=== PATIENT | female | born 1955 | race Caucasian/White ===

== ENCOUNTER 2017-01-04 11:03 | Inpatient (IN) | payer OTHER ==
[~2017-01-04] VITALS: Ht 157.5 cm; Wt 174.0 kg
[~2017-01-04 11:03] MED LIST: ACET-1256 PO; ASPI81TA28 PO; AZIT250T5 PO; BUPR100T8 PO; CEFU1TAB35 PO; CLR/5 PO; FLV1 PO; INSPMPHMLG; IPRA1AER2 INH; IPRASOL4 INH; ISOS60TA25 PO; LEVO200T6 PO; LPR25 PO; LPT/20 PO; MOME200A INH; MULT-506 PO; NSNN50 NAE; NTRGSL/4 UT; OXGN MS; PRT/40 PO; TORS20TA2 PO; TPM100 PO; VTMD PO
[2017-01-04] MEDS ORDERED: METHYLPREDNISOLONE 125 MG VIAL IV STA (11:33)
[2017-01-04] MEDS ORDERED: TRAM-10 PO (11:42)
[2017-01-04] MEDS ORDERED: SNG10 PO (11:42)
[2017-01-04] MEDS ORDERED: ATV/1 PO (11:42)
[2017-01-04] MEDS ORDERED: MOME6000 (11:42)
[2017-01-04] MEDS ORDERED: MULT-506 PO (11:42)
[2017-01-04] MEDS ORDERED: ALBU18002 INH (11:42)
[2017-01-04] MEDS ORDERED: POTA10TA30 PO (11:42)
[2017-01-04] MEDS ORDERED: CLBCRM30 EXT (11:42)
[2017-01-04] MEDS ORDERED: ALBUT/IPRATROP 3MG/0.5MG NEB 3 ML VIAL INH ONE (11:45)
[2017-01-04 12:02] LABS: HEMATOCRIT 39.6 % (37-47); MEAN CELL VOLUME 87.8 fL (80-100); MEAN CORPUSCULAR HEMOGLOBIN 28.2 pg (25-34); MEAN CORPUSCULAR HGB CONC 32.1 g/dl (32-36); MEAN PLATELET VOLUME 9.3 fL (7.4-10.4); PLATELET COUNT 277 K/uL (130-400); RED BLOOD COUNT 4.51 M/uL (4.2-5.4); WHITE BLOOD COUNT 15.03 K/uL (4.8-10.8)
--- NOTE | 2017-01-04 12:02 | DIAGNOSTIC IMAGING REPORT ---
CHEST ONE VIEW PORTABLE CLINICAL HISTORY: eval for pnea sob cough dyspnea COMPARISON STUDY: 10/21/2016 FINDINGS: Cardiomegaly. Tracheostomy tube in good position. Findings of mild congestive failure IMPRESSION: Mild congestive heart failure Electronically signed by: Neftali Trotter M.D. 01/04/2017 12:00 PM Dictated Date/Time: 01/04/2017 12:00 PM
[2017-01-04 12:10] VITALS: PULSE 79; O2SAT 93
[2017-01-04 12:10] LABS: PARTIAL THROMBOPLASTIN RATIO 0.9; PROTHROMBIN TIME (PATIENT) 10.7 SECONDS (9.0-12.0)
[2017-01-04 12:18] LABS: BLOOD UREA NITROGEN 22 mg/dl (7-18); BUN/CREATININE RATIO 16.8 (10-20); CALCIUM 8.6 mg/dl (8.5-10.1); CARBON DIOXIDE 25 mmol/L (21-32); CHLORIDE 105 mmol/L (98-107); GLUCOSE 221 mg/dl (70-99); POTASSIUM 3.8 mmol/L (3.5-5.1); SODIUM 141 mmol/L (136-145)
[2017-01-04 12:21] LABS: BASO % 0.2 %; BASO ABS # 0.03 K/uL (0-0.2); COMPLETE YES; EOS % 0.5 %; IG% 0.9 %; LYMPH % 18.8 %; LYMPH ABS # 2.83 K/uL (1.2-3.4); MONO % 7.1 %; NEUT % 72.5 %
[2017-01-04] MEDS ORDERED: ONDANSETRON INJ 2 MG/ML 2 ML VIAL IV PRN (14:00)
[2017-01-04] MEDS ORDERED: ACETAMINOPHEN 325 MG TAB PO PRN (14:00)
[2017-01-04] MEDS ORDERED: SODIUM CHLORIDE 0.9% 1000ML 1,000 ML IV SCH (14:00)
[2017-01-04] MEDS ORDERED: GUAISYP5 PO (14:31)
[2017-01-04] MEDS ORDERED: PRED10TA PO (14:31)
--- NOTE | 2017-01-04 14:32 | EMERGENCY ROOM VISIT NOTE ---
History Report prepared by Hipolito: Yonas Dooley Under the Supervision of: Dr. Surya Mcdaniel M.D. First contact with patient: 11:26 Chief Complaint: RESPIRATORY PROBLEMS Stated Complaint: CAN'T BREATHE, WHEEZING History of Present Illness The patient is a 61 year old female who presents to the Emergency Room with complaints of persistent shortness of breath that began on Tuesday of last week, four days prior to arrival. The patient states that she has been wheezing and coughing since Tuesday as well. She cannot bring anything up with her cough, but feels a thick mucous in her chest. She has a history of COPD and asthma. The patient also notes having intermittent chest pains since Tuesday as well. She describes the chest pain as a "heaviness." The patient typically experiences these chest pains when she has wheezing episodes. She did see her PCP on Tuesday and was prescribed cough medicine and Prednisone. She states that the cough medicine has not improve her symptoms. The patient had a tracheostomy in 2007. 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 A total of 10 systems reviewed and were otherwise negative. Past Medical & Surgical Medical Problems: (1) Appendectomy (2) ASTHMA, UNSPECIFIED (3) BENIGN HYPERTENSION (4) BODY MASS INDEX 60.0-69.9, ADULT (5) CARDIAC ARREST (6) Cholecystectomy (7) CHR AIRWAY OBSTRUCT NEC (8) COPD exacerbation (9) DIAB W OTH SPEC MANIFEST, TYPE II OR UNSPEC TYPE, NOT UNCNTR (10) Hysterectomy (11) MORBID OBESITY (12) PURE HYPERCHOLESTEROLEM (13) RESPIRATORY ARREST (14) Tracheostomy (15) URIN TRACT INFECTION NOS Family History Cancer Diabetes mellitus FHx: gallbladder disease Heart disease Hypertension Lung disease Social History Smoking Status: Never Smoker Alcohol Use: none Housing Status: lives with family Occupation Status: disabled Current/Historical Medications Scheduled Aspirin (Aspirin Ec), 81 MG PO DAILY Atorvastatin (Atorvastatin Calcium), 20 MG PO DAILY Bupropion (Wellbutrin Sr), 300 MG PO DAILY Desloratadine (Clarinex), 5 MG PO DAILY Ergocalciferol (Vitamin D), 50,000 INTER.UNIT PO 3XWK Folic Acid (Folic Acid), 1 MG PO DAILY Insulin Human Lispro (Insulin Humalog Pump ), 1 EA N/A UD Ipratropium-Albuterol (Combivent Respimat), 1 PUFF INH QID Isosorbide Mononitrate Ext Rel (Imdur Ext Rel), 60 MG PO DAILY Levothyroxine Sodium (Levothyroxine Sodium), 200 MCG PO 5XWK Levothyroxine Sodium (Levothyroxine Sodium), 300 MCG PO 2XWK Lorazepam (Ativan), 1 MG PO Q8 Metoprolol Tartrate (Lopressor), 12.5 MG PO BID Mometasone Furoate-Formoterol (Dulera 200/5 Mcg), 2 PUFFS INH BID Montelukast Sod (Montelukast Sodium), 10 MG PO DAILY Multivitamin (Multivitamin), 1 TAB PO DAILY Oxygen (Oxygen), 5 LITERS MS UD Pantoprazole (Pantoprazole Sodium), 40 MG PO DAILY Potassium Chloride (Potassium Chloride Cr), 10 MEQ PO BID Topiramate (Topiramate), 100 MG PO BID Torsemide (Demadex), 20 MG PO DAILY Scheduled PRN Acetaminophen (Tylenol), 500 MG PO UD PRN for Pain or Fever Azithromycin (Zithromax), 250 MG PO UD PRN for Rescue Kit Ipratropium-Albuterol (Duoneb), 1 TREATMENT INH QID PRN for Coughing,WHZ or SOB Nitroglycerin (Nitrostat), 0.4 MG UT UD PRN for Chest Pain Tramadol (Ultram), 50 MG PO Q4H PRN for Pain Miscellaneous Medications Albuterol Sulfate (Proair Respiclick) Clobetasol Propionate (Clobetasol Propionate Cream 0.05%), 1 APPLN EXT Mometasone Furoate (Nasal) (Mometasone Furoate) Allergies Coded Allergies: Amitriptyline (Verified Allergy, Unknown, `, 01/04/17) Gabapentin (Verified Allergy, Unknown, `, 01/04/17) Guaifenesin (Verified Allergy, Unknown, PT/FAMILY UNSURE OF RXN, 01/04/17) Metformin (Verified Allergy, Unknown, `, 01/04/17) Penicillins (Verified Allergy, Unknown, `, 01/04/17) Pseudoephedrine (Verified Allergy, Unknown, `, 01/04/17) Tetracycline (Verified Allergy, Unknown, `, 01/04/17) Physical Exam Vital Signs Date Time Temp Pulse Resp B/P Pulse Ox O2 Delivery O2 Flow Rate FiO2 01/04/17 14:24 72 20 126/80 94 Room Air 01/04/17 12:56 73 24 123/78 99 Trach Collar 9.0 01/04/17 12:10 79 20 93 Room Air 01/04/17 11:40 96 Room Air 01/04/17 11:33 92 Room Air 01/04/17 11:30 92 Room Air 01/04/17 11:06 36.7 80 20 139/71 92 Room Air Physical Exam Constitutional: Vital signs reviewed. Eyes: Pupils are equal round reactive to light. Conjunctiva are noninjected. ENT: Tracheostomy is present, no drainage. Pharynx is clear without erythema or exudate. Mucous membranes are moist. Neck supple without meningeal signs. Respiratory: Diffuse expiratory wheezing bilaterally. Breath sounds are equal bilaterally. Cardiovascular: Regular rate and rhythm. No rubs or gallops. GI: Soft, nondistended and nontender. Bowel sounds are present. Musculoskeletal: Bilateral pitting edema, no tenderness. No lower extremity tenderness. Integumentary: No cyanosis. Neurological: The patient is awake and alert. No focal deficits. Psychiatric: Normal affect. Medical Decision & Procedures ER Provider Diagnostic Interpretation: X-ray results as stated below per interpretation by me and the radiologist: CHEST ONE VIEW PORTABLE CLINICAL HISTORY: eval for pnea sob cough dyspnea COMPARISON STUDY: 10/21/2016 FINDINGS: Cardiomegaly. Tracheostomy tube in good position. Findings of mild congestive failure IMPRESSION: Mild congestive heart failure Electronically signed by: Neftali Trotter M.D. 01/04/2017 12:00 PM Dictated Date/Time: 01/04/2017 12:00 PM Laboratory Results 01/04/17 11:50 Red Blood Count 4.51, Mean Corpuscular Volume 87.8, Mean Corpuscular Hemoglobin 28.2, Mean Corpuscular Hemoglobin Concent 32.1, Mean Platelet Volume 9.3, Neutrophils (%) (Auto) 72.5, Lymphocytes (%) (Auto) 18.8, Monocytes (%) (Auto) 7.1, Eosinophils (%) (Auto) 0.5, Basophils (%) (Auto) 0.2, Neutrophils # (Auto) 10.89, Lymphocytes # (Auto) 2.83, Monocytes # (Auto) 1.07, Eosinophils # (Auto) 0.08, Basophils # (Auto) 0.03 01/04/17 11:50 Test 01/04/17 11:37 01/04/17 11:50 01/04/17 11:55 Influenza Type A Antigen Neg for Influ A (NEG) Influenza Type B Antigen Neg for Influ B (NEG) White Blood Count 15.03 K/uL (4.8-10.8) Red Blood Count 4.51 M/uL (4.2-5.4) Hemoglobin 12.7 g/dL (12.0-16.0) Hematocrit 39.6 % (37-47) Mean Corpuscular Volume 87.8 fL (80-100) Mean Corpuscular Hemoglobin 28.2 pg (25-34) Mean Corpuscular Hemoglobin Concent 32.1 g/dl (32-36) Platelet Count 277 K/uL (130-400) Mean Platelet Volume 9.3 fL (7.4-10.4) Neutrophils (%) (Auto) 72.5 % Lymphocytes (%) (Auto) 18.8 % Monocytes (%) (Auto) 7.1 % Eosinophils (%) (Auto) 0.5 % Basophils (%) (Auto) 0.2 % Neutrophils # (Auto) 10.89 K/uL (1.4-6.5) Lymphocytes # (Auto) 2.83 K/uL (1.2-3.4) Monocytes # (Auto) 1.07 K/uL (0.11-0.59) Eosinophils # (Auto) 0.08 K/uL (0-0.5) Basophils # (Auto) 0.03 K/uL (0-0.2) RDW Standard Deviation 48.2 fL (36.4-46.3) RDW Coefficient of Variation 15.0 % (11.5-14.5) Immature Granulocyte % (Auto) 0.9 % Immature Granulocyte # (Auto) 0.13 K/uL (0.00-0.02) Prothrombin Time 10.7 SECONDS (9.0-12.0) Prothromb Time International Ratio 1.0 (0.9-1.1) Activated Partial Thromboplast Time 23.6 SECONDS (21.0-31.0) Partial Thromboplastin Ratio 0.9 Anion Gap 11.0 mmol/L (3-11) Estimated GFR () 51.6 Estimated GFR (Non- 44.6 BUN/Creatinine Ratio 16.8 (10-20) Calcium Level 8.6 mg/dl (8.5-10.1) Bedside Troponin I 0.000 ng/ml (0-0.045) Laboratory results as reviewed by me. Medications Administered Medications (Trade) Dose Ordered Sig/Fatoumata Route Start Time Stop Time Status Last Admin Dose Admin Methylprednisolone Sodium Succinate (Solu-Medrol IV) 125 mg NOW STAT IV 01/04/17 11:33 01/04/17 11:35 DC 01/04/17 11:52 125 MG Albuterol/ Ipratropium (Duoneb) 12 ml ONE ONCE INH 01/04/17 11:45 01/04/17 11:46 DC 01/04/17 12:10 12 ML ECG Indication: SOB/dyspnea Rate (beats per minute): 74 Rhythm: sinus rhythm Findings: 1st degree AV block, RBBB ED Course 1127: The patient was evaluated in room C9. A complete history and physical exam was performed. 1133: Ordered Solu-Medrol 125 mg IV. 1145: Ordered Duoneb 12 mL INH. 1227: I checked on the patient at this time. She is still wheezing, and is still receiving nebulizer treatment. 1300: I reevaluated the patient at this time. She states she is feeling better, but is still wheezing significantly. [facility] 1305: I discussed the case with Dr. Costa [facility] , she will evaluate the patient for further treatment. Medical Decision This is a 61-year-old female presents with chest pain and shortness of breath. Differential diagnosis includes COPD exacerbation, pneumonia, bronchitis, pleurisy, pneumothorax. I did perform a limited focused review of portions of the patient's old chart on the electronic medical record. The patient has had no recent pertinent visits to this hospital. I did evaluate the patient as noted above. The patient has significant wheezing on examination. IV access was established. The patient was placed on a continuous director of cardiac cath lab. I did treat patient with an hour-long DuoNeb as well as Solu-Medrol IV. There is no evidence of pneumonia on chest x-ray. I did order and personally review the patient's 12-lead EKG and chest x-ray as described above. I did order and review the patient's blood work as noted in the electronic medical record. Her white blood cell count is elevated. I did order a rapid flu swab which was negative. I did reassess the patient. She continues to have wheezing and shortness of breath although she is improved. I did recommend hospitalization for further care and evaluation. I did discuss the case with the hospitalist and family independence case manager. Consults Time Called: 1255 Consulting Physician: Dr. Igor Mistry Hospitalist Returned Call: 1305 I discussed the case with Dr. Igor Griffin at this time, she will evaluate the patient for further treatment. Impression Primary Impression: COPD exacerbation Additional Impressions: Bronchitis Precordial chest pain Scribe Attestation The scribe's documentation has been prepared under my direct and personally reviewed by me in its entirety. I confirm that the note above accurately reflects all work, treatment, procedures, and medical decision making performed by me. Departure Information Dispostion Being Evaluated By Hospitalist Referrals Clarisse Jones DO (PCP) Patient Instructions My [facility] Problem Qualifiers
[2017-01-04] MEDS ORDERED: BUPR100T8 PO (14:33)
[2017-01-04] MEDS ORDERED: TOPI200T14 PO (14:33)
[2017-01-04] MEDS ORDERED: TRAMADOL HCL 50 MG TAB PO PRN (14:45)
[2017-01-04] MEDS ORDERED: GUAIFENESIN/CODEINE 200MG/20MG 10ML UDC PO PRN (14:45)
[2017-01-04] MEDS ORDERED: LORAZEPAM 1 MG TAB PO PRN (14:45)
--- NOTE | 2017-01-04 15:09 | DIAGNOSTIC IMAGING REPORT ---
BILATERAL LOWER EXTREMITY VENOUS DOPPLER HISTORY: Dyspnea shortness of breath, PE work up COMPARISON STUDY: None. FINDINGS: There is normal compressibility, flow, and augmentation within the bilateral lower extremity deep venous systems. IMPRESSION: No DVT within the right or left lower extremity. Electronically signed by: Neftali Trotter M.D. 01/04/2017 3:08 PM Dictated Date/Time: 01/04/2017 3:07 PM
[2017-01-04] MEDS ORDERED: VANCOMYCIN CONSULT ACTIVE SCH (15:27)
[2017-01-04] MEDS ORDERED: LEVOFLOXACIN CONSULT ACTIVE PRN (15:30)
[2017-01-04 15:59] VITALS: BP 126/68; PULSE 87; TEMP 36.7; O2SAT 92
[2017-01-04] MEDS ORDERED: VANCOMYCIN INJ 2,000 MG in SODIUM CHLORIDE 0.9% 500ML 500 ML IV SCH (16:00)
[2017-01-04] MEDS ORDERED: LEVOFLOXACIN 750MG / D5W IV SCH (16:00)
[2017-01-04] MEDS ORDERED: GLUCOSE 10 TABS/TUBE PO PRN (16:30)
[2017-01-04] MEDS ORDERED: GLUCOSE 40% GEL 15 GM TUBE PO PRN (16:30)
[2017-01-04] MEDS ORDERED: GLUCAGON FOR INJ 1 MG VIAL SQ PRN (16:30)
[2017-01-04] MEDS ORDERED: DEXTROSE 50% 50 ML SYR IV PRN (16:30)
[2017-01-04] MEDS ORDERED: INSULIN HUMAN LISPRO (humaLOG) 100 UNITS/ML VIAL SC PRN (16:30)
[2017-01-04 16:35] VITALS: BMI 70.9
[2017-01-04] MEDS ORDERED: PATIENT'S HEIGHT AND/OR WEIGHT NEEDED SCH (16:45)
[2017-01-04] MEDS: ALBUT/IPRATROP 3MG/0.5MG NEB 3 ML VIAL INH SCH ×2 (17:58→19:53)
--- NOTE | 2017-01-04 17:58 | History and Physical ---
History & Physical Date & Time of Service: Jan 04, 2017 at 15:39 Chief Complaint: Cough, Shortness of Breath Primary Care Physician: Clarisse Jones DO History of Present Illness 61 year old female who presents to the ER with cough and shortness of breath. Patient reports her symptoms started 5 days ago. She was seen by her PCP on and was started on Prednisone taper and cough syrup. She reports no improvement in her symptoms. She called the office again yesterday and was prescribed azithromycin however never picked it up from the pharmacy. She reports the cough as harsh, barking, and non productive. She reports she feels a lot of congestion in her chest. She denies fever and chills. She reports she has developed chest pain. She reports the pain is across her chest and is brought on coughing and taking a deep breath. She also reports increasing shortness of breath at rest as well as with exertion. Patient has chronic lower extremity edema which is unchanged. She denies lightheadedness, dizziness, diaphoresis, or syncopal events. No abdominal pain, nausea, vomiting, or diarrhea. She denies urinary symptoms. In the ER, patient is saturating well on room air. CXR does not show signs of pneumonia. She was given a 1hour long neb treatment and solu-medrol 125mg IV. EKG shows new RBBB. Initial troponin is negative. Past Medical/Surgical History Medical Problems: (1) Anxiety Status: Chronic (2) Bronchiectasis Status: Chronic (3) Chronic respiratory failure Status: Chronic (4) CKD (chronic kidney disease), stage III Status: Chronic (5) COPD (chronic obstructive pulmonary disease) Status: Chronic (6) DM type 2 (diabetes mellitus, type 2) Status: Chronic (7) Dyslipidemia Status: Chronic (8) HTN (hypertension) Status: Chronic (9) Hypothyroid Status: Chronic (10) Hypoventilation associated with obesity Status: Chronic (11) Migraine Status: Chronic (12) MRSA (methicillin resistant staph aureus) culture positive Permanent Comment: sputum 11/2015 Status: Chronic (13) Tracheostomy in place Status: Chronic Surgical Problems: (1) History of appendectomy Status: Chronic (2) History of cholecystectomy Status: Chronic (3) History of hysterectomy Status: Chronic (4) History of tonsillectomy and adenoidectomy Status: Chronic (5) S/P IVC filter Status: Chronic Family History FH: COPD (chronic obstructive pulmonary disease) MOTHER Social History Smoking Status: Never Smoker Alcohol Use: none Housing status: lives with family Immunizations History of Influenza Vaccine: Yes Influenza Vaccine Date: Sep 27, 2016 History of Tetanus Vaccine?: Yes Tetanus Immunization Date: Jul 29, 2011 History of Pneumococcal: Yes Pneumococcal Date: Sep 27, 2016 Multi-Drug Resistant Organisms History of MDRO: Yes Type of MDRO: MRSA Allergies Coded Allergies: Amitriptyline (Verified Allergy, Unknown, `, 01/04/17) Gabapentin (Verified Allergy, Unknown, `, 01/04/17) Metformin (Verified Allergy, Unknown, `, 01/04/17) Penicillins (Verified Allergy, Unknown, `, 01/04/17) Pseudoephedrine (Verified Allergy, Unknown, `, 01/04/17) Tetracycline (Verified Allergy, Unknown, `, 01/04/17) Home Medications Scheduled Aspirin (Aspirin Ec), 81 MG PO DAILY Atorvastatin (Atorvastatin Calcium), 20 MG PO DAILY Azithromycin (Zithromax), 250 MG PO UD Bupropion (Wellbutrin Sr), 100 MG PO DAILY Bupropion (Wellbutrin Sr), 200 MG PO HS Desloratadine (Clarinex), 5 MG PO DAILY Ergocalciferol (Vitamin D), 1 CAP PO 3XWK Folic Acid (Folic Acid), 1 MG PO DAILY Insulin Human Lispro (Insulin Humalog Pump ), 1 EA N/A UD Ipratropium-Albuterol (Combivent Respimat), 1 PUFF INH QID Isosorbide Mononitrate Ext Rel (Imdur Ext Rel), 60 MG PO DAILY Levothyroxine Sodium (Levothyroxine Sodium), 200 MCG PO 5XWK Levothyroxine Sodium (Levothyroxine Sodium), 300 MCG PO 2XWK Metoprolol Tartrate (Lopressor), 12.5 MG PO BID Mometasone Furoate (Nasal) (Mometasone Furoate), 2 SPRAYS NA DAILY Mometasone Furoate-Formoterol (Dulera 200/5 Mcg), 2 PUFFS INH BID Montelukast Sod (Montelukast Sodium), 10 MG PO DAILY Multivitamin (Multivitamin), 1 TAB PO DAILY Oxygen (Oxygen), 5 LITERS MS UD Pantoprazole (Pantoprazole Sodium), 40 MG PO DAILY Potassium Chloride (Potassium Chloride Cr), 10 MEQ PO BID Prednisone Tab (Prednisone), 10 MG PO DAILY Topiramate (Topiramate), 100 MG PO DAILY Topiramate (Topamax), 200 MG PO HS Torsemide (Demadex), 20 MG PO DAILY Scheduled PRN Acetaminophen (Tylenol), 500 MG PO UD PRN for Pain or Fever Albuterol Sulfate (Proair Respiclick), 2 PUFFS INH Q4H PRN for SOB/Wheezing Guaifenesin-Codeine (Robitussin-Ac Syrup), 5 ML PO Q4H PRN for Cough Ipratropium-Albuterol (Duoneb), 1 TREATMENT INH QID PRN for Coughing,WHZ or SOB Lorazepam (Ativan), 1 MG PO Q8 PRN for Anxiety Nitroglycerin (Nitrostat), 0.4 MG UT UD PRN for Chest Pain Tramadol (Ultram), 50 MG PO Q4H PRN for Pain Miscellaneous Medications Clobetasol Propionate (Clobetasol Propionate Cream 0.05%), 1 APPLN EXT Review of Systems 10 point review of systems was completed with the pertinent positives and negatives noted per the HPI Physical Exam Vital Signs Date Time Temp Pulse Resp B/P Pulse Ox O2 Delivery O2 Flow Rate FiO2 01/04/17 14:24 72 20 126/80 94 Room Air 01/04/17 12:56 73 24 123/78 99 Trach Collar 9.0 01/04/17 12:10 79 20 93 Room Air 01/04/17 11:40 96 Room Air 01/04/17 11:33 92 Room Air 01/04/17 11:30 92 Room Air 01/04/17 11:06 36.7 80 20 139/71 92 Room Air General Appearance: no apparent distress Head: normocephalic Eyes: normal inspection ENT: hearing grossly normal Neck: supple, + pertinent finding (large neck, metal trach in place) Respiratory/Chest: no respiratory distress, + decreased breath sounds, + wheezing (scattered, expiratory) Cardiovascular: regular rate, rhythm, + pertinent finding (+1-2 edema BLLE ) Abdomen/GI: normal bowel sounds, non tender, soft Extremities/Musculoskelatal: normal inspection, no calf tenderness Neurologic/Psych: no motor/sensory deficits, alert, normal mood/affect, oriented x 3 Skin: normal color, warm/dry Diagnostics Laboratory Results Results Past 24 Hours Test 01/04/17 11:37 01/04/17 11:50 01/04/17 11:55 Range/Units Influenza Type A Antigen Neg for Influ A NEG Influenza Type B Antigen Neg for Influ B NEG White Blood Count 15.03 4.8-10.8 K/uL Red Blood Count 4.51 4.2-5.4 M/uL Hemoglobin 12.7 12.0-16.0 g/dL Hematocrit 39.6 37-47 % Mean Corpuscular Volume 87.8 80-100 fL Mean Corpuscular Hemoglobin 28.2 25-34 pg Mean Corpuscular Hemoglobin Concent 32.1 32-36 g/dl Platelet Count 277 130-400 K/uL Mean Platelet Volume 9.3 7.4-10.4 fL Neutrophils (%) (Auto) 72.5 % Lymphocytes (%) (Auto) 18.8 % Monocytes (%) (Auto) 7.1 % Eosinophils (%) (Auto) 0.5 % Basophils (%) (Auto) 0.2 % Neutrophils # (Auto) 10.89 1.4-6.5 K/uL Lymphocytes # (Auto) 2.83 1.2-3.4 K/uL Monocytes # (Auto) 1.07 0.11-0.59 K/uL Eosinophils # (Auto) 0.08 0-0.5 K/uL Basophils # (Auto) 0.03 0-0.2 K/uL RDW Standard Deviation 48.2 36.4-46.3 fL RDW Coefficient of Variation 15.0 11.5-14.5 % Immature Granulocyte % (Auto) 0.9 % Immature Granulocyte # (Auto) 0.13 0.00-0.02 K/uL Prothrombin Time 10.7 9.0-12.0 SECONDS Prothromb Time International Ratio 1.0 0.9-1.1 Activated Partial Thromboplast Time 23.6 21.0-31.0 SECONDS Partial Thromboplastin Ratio 0.9 Sodium Level 141 136-145 mmol/L Potassium Level 3.8 3.5-5.1 mmol/L Chloride Level 105 98-107 mmol/L Carbon Dioxide Level 25 21-32 mmol/L Anion Gap 11.0 3-11 mmol/L Blood Urea Nitrogen 22 7-18 mg/dl Creatinine 1.30 0.60-1.20 mg/dl Estimated GFR () 51.6 Estimated GFR (Non- 44.6 BUN/Creatinine Ratio 16.8 10-20 Random Glucose 221 70-99 mg/dl Calcium Level 8.6 8.5-10.1 mg/dl Bedside Troponin I 0.000 0-0.045 ng/ml Diagnostic Radiology CXR IMPRESSION: Mild congestive heart failure Impression Assessment and Plan SHORTNESS OF BREATH/COUGH COPD EXACERBATION DUE TO BRONCHITIS/TRACHEITIS CHRONIC RESPIRATORY FAILURE S/P TRACH - admit to tele - presenting with increasing shortness of breath and cough x 4 days - patient saturating well on room air - CXR - no pneumonia; however being read as mild CHF - clinically does not examine to be volume overloaded - around the clock IV steroids and nebs - hx + MRSA sputum 11/2015 - check MRSA nasal swab - on chronic azithromycin MWF - will hold and place on Levaquin and Vanco - WBC 15K - noted patient recently started on steroids; afebrile, vitals stable - low suspicion for PE - no hypoxia or tachycardia, patient has IVC in place, will check BLLE dopplers; noted patient reports poor tolerance for laying flat in CT scanner - pulmonary consult, input appreciated ATYPICAL CHEST PAIN, NEW RBBB - likely due to persistent coughing / COPD exacerbation - EKG shows new RBBB - initial troponin negative, will continue to cycle - check resting echo DM - hgb a1c 7.2 09/2016 - on insulin pump - patient to manage CKD STAGE III - baseline creat runs in the low 1's, noted to be 1.3 today - continue to monitor, avoid nephrotoxic agents when able CHRONIC LOWER EXTREMITY EDEMA - will hold torsemide due to acute illness HTN - BP controlled, continue isosorbide and metoprolol HYPOTHYROIDISM - continue levothyroxine DVT PROPHYLAXIS - SQ Heparin CODE STATUS - Patient is a full code as per my discussion with her. DISPO - In my clinical judgment this beneficiary meets acute admission criteria, established by [facility], that includes being hospitalized through two midnights. agree with above h and P. Briefly 61F with hx of copd, obesity s/p trach presents with cough and sob of 4-5 day duration. Denies any fevers. Cough with yellow and whitish sputum. Also complains of right sided chest pain more on deep breath and cough. Currently resting comfortably and hemodynamically stable. 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 a/p SOB copd ex Obesity s/p trach started on iv steroids and nebx and abx pulmonary consulted Chest oconenll right sided more on deep breath pleurisy? hx of ivc filter f/u CE and echo VTE Prophylaxis VTE Risk Assessment Done? Y/N: Yes Risk Level: Moderate
[2017-01-04] MEDS ORDERED: ALBUTEROL 0.083% NEBU SOLN 3 ML VIAL INH PRN (18:15)
[2017-01-04] MEDS: METHYLPREDNISOLONE IV 40 MG in SYRINGE 0 ML IV SCH (19:21)
[2017-01-04] MEDS: TOPIRAMATE 100 MG TAB PO SCH (19:24)
[2017-01-04] MEDS: BuPROPion SR 100 MG TABCR PO SCH (19:25)
[2017-01-04] MEDS: MONTELUKAST SOD 10 MG TAB PO SCH (19:26)
[2017-01-04] MEDS: METOPROLOL TARTRATE 25 MG TAB PO SCH (19:27)
[2017-01-04 19:53] VITALS: PULSE 78; O2SAT 96
[2017-01-04 20:00] VITALS: BP 119/64; PULSE 96; TEMP 36.8; O2SAT 98
--- NOTE | 2017-01-04 20:30 | Pharmacy Progress Note ---
Pharmacy Antibiotic Consult Date of Service: Jan 04, 2017. Pharmacy Dosing Scope Pharmacy is consulted to initiate levaquin and vancomycin IV dosing therapy, order appropriate labs and adjust drug dose/frequency. Subjective The patient is a 61 year old female admitted on Jan 04, 2017 at 13:52. Objective Height (Feet): 5 Height (Inches): 2.00 Weight (Kilograms): 175.800 Lab Results (24hrs): Laboratory Tests Test 01/04/17 11:50 BUN/Creatinine Ratio 16.8 Blood Urea Nitrogen 22 mg/dl Creatinine 1.30 mg/dl White Blood Count 15.03 K/uL Red Blood Count 4.51 M/uL Hemoglobin 12.7 g/dL Hematocrit 39.6 % Mean Corpuscular Volume 87.8 fL Mean Corpuscular Hemoglobin 28.2 pg Mean Corpuscular Hemoglobin Concent 32.1 g/dl Platelet Count 277 K/uL Mean Platelet Volume 9.3 fL Neutrophils (%) (Auto) 72.5 % Lymphocytes (%) (Auto) 18.8 % Monocytes (%) (Auto) 7.1 % Eosinophils (%) (Auto) 0.5 % Basophils (%) (Auto) 0.2 % Neutrophils # (Auto) 10.89 K/uL Lymphocytes # (Auto) 2.83 K/uL Monocytes # (Auto) 1.07 K/uL Eosinophils # (Auto) 0.08 K/uL Basophils # (Auto) 0.03 K/uL Assessment & Plan Patient started on vancomycin and levaquin for possible pneumonia infection/ COPD exacerbation. MRSA swab ordered. Of note, on azithromycin chronically at home- now on hold Vancomycin: * 2 gm iv x 1 ordered as a LD (~12 mg/kg) * Will dose with 1750 mg (~10 mg/kg) iv q 12 hr to achieve an estimated trough of ~18 mcg/ml (goal 15-20 mcg/ml for pna) * Estimated kinetics: t1/2~13 hrs, ke~0.051 hr-1, CrCl ~60, Vd ~0.6 L/kg * Patient at risk for accumulation of vancomycin due to elevated BMI >35 kg/m2; therefore will monitor closely Levaquin: * 750 mg iv q 24 hrs - appropriate for CrCl >50 ml/min - no changes needed Pharmacy will continue to follow and will adjust dose/frequency as necessary. Thank you
[2017-01-04] MEDS: HEPARIN SOD 5000 UNIT/0.5 ML CARP SQ SCH (20:45)
[2017-01-04] MEDS ORDERED: NON-FORMULARY MEDICATION (Mometasone Furoate-Formoterol (Dulera 200/5 Mcg) 2 PUFFS) INH SCH (21:00)
--- NOTE | 2017-01-04 22:56 | PULMONARY CONSULTATION ---
DATE OF CONSULTATION: 01/04/2017 TIME: 5:50 p.m. REPORT OF CONSULTATION: The patient is a 61-year-old female, who is being seen in room 244, bed 1. She was admitted today with severe cough and shortness of breath. She has a history of asthma and COPD. She generally is clear. She began to have problems back on December 31. In addition to the wheezing and cough, she felt some chest heaviness. This often occurs when she has breathing troubles. She relates that 3 days prior this, she had been exposed to someone in public while in an office and that person had a severe cough. She felt that she may have picked up something from them. She went to see her family doctor. Some prednisone was prescribed as well as some cough medicine. Unfortunately, the pharmacy did not have the cough medicine available. Her symptoms worsened. They were especially bad at night time. Her daughter tried to get the patient to come to the hospital, but she was refusing. Ultimately, she did come today. She feels much better than she did this morning. She states the hour long treatment she received in the Emergency Room has helped tremendously. Also, she has started to bring up phlegm now through her tracheostomy. She has had a tracheostomy in since 2007. At that time, she had an FL and apparently a cardiorespiratory arrest and was on ventilator for quite some time. The doctors were afraid to take the trach out because of having severe obesity. She has not had any chills, fevers or sweats. She does not feel achy. Her appetite has still been acceptable. PAST SURGICAL HISTORY: 1. Tracheostomy in 2007. 2. Appendectomy. 3. Cholecystectomy. 4. Hysterectomy. 5. Tonsillectomy. PAST MEDICAL HISTORY: 1. Hypertension. 2. Hypercholesterolemia. 3. FL in the past as noted; associated with cardiorespiratory arrest. 4. Obesity, hypoventilation syndrome. 5. Diabetes type 2. 6. Urinary tract infections. 7. Sleep apnea, for which the patient did not apparently want treatment with CPAP. 8. Chronic kidney disease stage 3. SOCIAL HISTORY: Tobacco is never. ETOH -- none. FAMILY HISTORY: Brother had lung cancer, mother with an FL, father from suicide. Apparently, this was precipitated by his 's . ALLERGIES: AMITRIPTYLINE, GABAPENTIN, GUAIFENESIN, METFORMIN, PENICILLIN, PSEUDOEPHEDRINE AND TETRACYCLINE. BREATHING MEDICATIONS AT HOME: Combivent Respimat, Dulera, montelukast, oxygen at 5 liters at bedtime by trach collar and neb treatments with DuoNebs. She also has a ProAir RespiClick. REVIEW OF SYSTEMS: The patient's energy level has been somewhat low. Denies visual complaints. She is not noticing nasal congestion. She does have the trach as noted. Mild chest heaviness as noted above. No palpitations. Denies nausea, vomiting, diarrhea or constipation. Remainder of the review of systems is essentially negative except as noted above. PHYSICAL EXAMINATION: GENERAL: The patient is a 61-year-old female who is cooperative, alert and oriented. She appeared comfortable. The patient is obese. Weight is 175.8 kilograms and her BMI is 70.9. HEENT: Pupils were reactive to light. Nares were clear. Mouth revealed a Mallampati grade 4 pharynx. One cannot visualize anything at all in the back of her throat. She has a huge neck. Tracheostomy is in place. She has a metal trach. Her daughter was with her during this examination. Her daughter cleans the inner cannula daily and she cleans the entire trach once weekly. VITAL SIGNS: Temperature is 36.7. Heart rate is 94 per minute, the rhythm is regular. Lung hale revealed moderate wheezing bilaterally both inspiration and expiration. There was no accessory muscle use. Oxygen saturation was 93% on room air. Respiratory rate was 24 breaths per minute. It was not labored. Blood pressure was 126/68. ABDOMEN: Obese. Bowel sounds were present. There was no tenderness to palpation and no definite mass. EXTREMITIES: Showed very dry skin. There was no cyanosis, clubbing or edema. LABORATORY DATA: White count is elevated at 15.03. Hemoglobin 12.7. Platelets 277,000. INR was 1.0 and PTT is 0.9. Electrolytes show sodium 141, potassium 3.8, chloride 105, bicarb 25. BUN is 22 with a creatinine of 1.3. Blood sugar was 173. Flu test was negative. Venous Doppler was negative. Chest x-ray showed tracheostomy in good position. There was significant cardiomegaly. Could not exclude mild congestive heart failure. IMPRESSION: 1. Asthma with exacerbation. 2. Chronic obstructive pulmonary disease. 3. Status post tracheostomy. 4. Obesity. COMMENTS AND RECOMMENDATIONS: The patient is feeling much better. She was ordered her usual medicines for the most part. She is on methylprednisolone 40 mg IV q. 8 hours. I do agree with that. Sugars will need to be watched. She was ordered vancomycin. It appears she was ordered levofloxacin. She is getting nebulizer treatments every 6 hours with DuoNebs. She also should have a p.r.n. treatment available to her if in distress. Thank you very much for asking me to assist in her care. ALMAZ
[2017-01-05] VITALS (10 sets, daily range): BP systolic 119–130; BP diastolic 66–81; PULSE 63–84; TEMP 36.5–36.9; O2SAT 93–98; Ht 157.5 cm; Wt 174.0 kg
[2017-01-05] MEDS: ALBUT/IPRATROP 3MG/0.5MG NEB 3 ML VIAL INH SCH ×4 (01:39→20:34)
[2017-01-05] MEDS: METHYLPREDNISOLONE IV 40 MG in SYRINGE 0 ML IV SCH (05:07)
[2017-01-05] MEDS: VANCOMYCIN INJ 1,750 MG in SODIUM CHLORIDE 0.9% 500ML 500 ML IV SCH ×2 (05:07→16:35)
[2017-01-05] MEDS: LEVOTHYROXINE 200 MCG TAB PO SCH (05:08)
[2017-01-05] MEDS: HEPARIN SOD 5000 UNIT/0.5 ML CARP SQ SCH ×3 (05:50→21:15)
--- NOTE | 2017-01-05 06:44 | Clinical Documentation Query ---
AMRIT Escobar : CLINICAL DOCUMENTATION QUERY Patient is a 61 year old morbidly obese female admitted with COPD exacerbation due to bronchitis/tracheitis. Please explicitly specify the acuity associated with these diagnoses as it directly impacts code assignment and cannot be assumed by the mac artist. Thank you. In your clinical opinion is this patient being managed for: ( ) Acute bronchitis/tracheitis (x ) Other explanation of clinical findings (Please Explain): Acute Asthma Exacerbation) ( ) Unable to determine (Please Define) ( ) Need to Discuss ( ) Not Agree The medical record reflects the following clinical findings, treatment, and risk factors. Clinical Indicators: As above Treatment: Telemetry, IV Levaquin and Vancomycin, pulmonary consultation, nebulizers, steroids. Risk Factors: COPD, hypoventilation associated with obesity Please clarify and document your clinical opinion in the progress notes and discharge summary. Terms such as "probable", "suspected", "likely", "questionable", "possible", or "still to be ruled out" are acceptable. IF IN AGREEMENT, YOU MUST DOCUMENT ABOVE DIAGNOSTIC STATEMENT IN DAILY PROGRESS NOTES AND DISCHARGE SUMMARY. This document is not part of the patient's record. Thank You, Rajiv Ma, RN [phone]
[2017-01-05 08:08] LABS: HEMATOCRIT 41.2 % (37-47); MEAN CELL VOLUME 88.6 fL (80-100); MEAN CORPUSCULAR HGB CONC 31.6 g/dl (32-36); MEAN PLATELET VOLUME 9.4 fL (7.4-10.4); PLATELET COUNT 288 K/uL (130-400); RED BLOOD COUNT 4.65 M/uL (4.2-5.4); WHITE BLOOD COUNT 15.13 K/uL (4.8-10.8)
[2017-01-05] MEDS: ASPIRIN 81 MG ECTAB PO SCH (08:25)
[2017-01-05] MEDS: MULTIVITAMIN TAB PO SCH (08:26)
[2017-01-05] MEDS: ISOSORBIDE MONONITRATE 60 MG TABCR PO SCH (08:26)
[2017-01-05] MEDS: PANTOprazole SOD 40 MG TAB PO SCH (08:26)
[2017-01-05] MEDS: ERGOCALCIFEROL 50,000 INTER.UNIT CAP PO SCH (08:27)
[2017-01-05] MEDS: BuPROPion SR 100 MG TABCR PO SCH ×2 (08:27→19:49)
[2017-01-05] MEDS: METOPROLOL TARTRATE 25 MG TAB PO SCH ×2 (08:27→19:48)
[2017-01-05] MEDS: TOPIRAMATE 100 MG TAB PO SCH ×2 (08:28→19:49)
[2017-01-05 08:38] LABS: BUN/CREATININE RATIO 16.8 (10-20); CALCIUM 9.3 mg/dl (8.5-10.1); CREATININE 1.2 mg/dl (0.60-1.20); POTASSIUM 4.3 mmol/L (3.5-5.1)
[2017-01-05] MEDS ORDERED: NON-FORMULARY MEDICATION (Desloratadine (Clarinex) 5 MG) PO SCH (09:00)
[2017-01-05] MEDS: ATORVASTATIN 20 MG TAB PO SCH (10:38)
--- NOTE | 2017-01-05 11:33 | PULMONARY PROGRESS NOTE ---
DATE: 01/05/2017 TIME: 10:55 a.m. SUBJECTIVE: The patient feels dramatically better. Her breathing is much improved. She had a good night. She does have some mucus that has had a little blood in it as per the nursing staff. The patient is incontinent of urine. She states this happens when she has an increased cough. OBJECTIVE: GENERAL: The patient was sitting up. She was comfortable at rest. VITAL SIGNS: Temperature was 36.7. NECK: She has a very large neck as prior. The trachea appeared normal. HEART: Rate is 83 beats per minute. The rhythm was regular. Blood pressure 128/72. LUNGS: Marcus were clear today. No active wheezing was heard at all. This reflects dramatic improvement compared with yesterday. She does have a trach collar at 30% on. Saturations were 95%. ABDOMEN: Remains obese. It was soft. Bowel sounds were normal. EXTREMITIES: Showed dry skin. There was no significant edema. LABORATORY DATA: White count today is 15.13. Hemoglobin is 13. Platelets 288,000. Electrolytes show sodium 142, potassium 4.3, chloride 107, and bicarbonate 26. BUN is 20 with a creatinine of 1.2. Random blood sugar is 159. Sputum reports many gram positive cocci and many polys. The final is still pending. IMPRESSIONS: 1. Asthma with exacerbation. 2. Chronic obstructive pulmonary disease. 3. Status post tracheostomy. 4. Obesity. RECOMMENDATIONS: The patient is much improved. I believe that the methylprednisolone can be decreased in light of this. We would like to decrease as soon as feasible of course because of her diabetes. I will decrease this down to 20 mg IV q. 8 hours. If she continues to improve, she likely may soon be ready for discharge in a day or 2. I would continue the nebulizer treatments as she is currently receiving.
[2017-01-05] MEDS: METHYLPREDNISOLONE IV 20 MG in SYRINGE 0 ML IV SCH ×2 (12:00→19:45)
--- NOTE | 2017-01-05 14:21 | Progress Note ---
Internal Med Progress Note Date of Service: Jan 05, 2017. Provider Documentation: SUBJECTIVE: Patient is seen and examined at bedside. States SOB is much improved. Has some yellowish expectoration. Chest pain resolved. Offers no other complaints. Family at bedside. OBJECTIVE: Vital Signs-as noted below Physical Exam: Vitals signs as noted above General Appearance:Obese, no apparent distress Head: normocephalic, Atraumatic Eyes: normal inspection, EOMI, PERRLA Neck: supple, no JVD, Trachea midline Respiratory/Chest: Normal breath sounds, CTA, No accessory muscle use + Trach color Cardiovascular: S1, S2, NSR, No murmur Abdomen/GI:Soft, Non tender, Bowel sounds present Extremities/Musculoskelatal:normal inspection, 1+ edema Neurologic/Psych:AAOX3, grossly no focal neurological deficits Skin: normal color, warm Lab data as noted below. ASSESSMENT & PLAN: ASTHMA EXACERBATION H/O COPD CHRONIC RESPIRATORY FAILURE S/P TRACH Continue to monitor in Tele Patient presented with worsening shortness of breath and cough x 4 days CXR: no consolidation; Mild CHF: clinically no volume overloaded Continue IV steroids and nebs per Pulmonology MRSA nasal swab positive on chronic azithromycin MWF: Hold for now Continue Levaquin and Vanco FU cultures Appreciate pulmonary input On 5L oxygen at bedtime at baseline PLEURITIC CHEST PAIN, NEW RBBB likely secondary to persistent coughing/Asthma Exacerbation Resolved EKG shows new RBBB Troponin X 2: negative ECHO:pending DM Last A1C: 7.2 on 09/2016 on insulin pump - patient to manage CKD STAGE III Baseline creat runs in the low 1's, noted to be 1.3 today continue to monitor Avoid nephrotoxic agents when able CHRONIC LOWER EXTREMITY EDEMA Hold torsemide due to acute illness HTN controlled continue isosorbide and metoprolol HYPOTHYROIDISM continue levothyroxine DVT PROPHYLAXIS SQ Heparin CODE STATUS Full code DISPO Continue to monitor in Tele Vital Signs: Date Time Temp Pulse Resp B/P Pulse Ox O2 Delivery O2 Flow Rate FiO2 01/05/17 14:33 78 16 95 Trach Collar 35 01/05/17 12:00 Trach Collar 30 01/05/17 11:55 36.6 65 18 127/68 93 Trach Collar 01/05/17 08:00 Trach Collar 30 01/05/17 07:40 83 16 95 Trach Collar 30 01/05/17 07:36 36.7 71 21 128/72 95 Trach Collar 30 01/05/17 05:06 36.5 76 18 124/74 97 Trach Collar 30 01/05/17 05:00 Trach Collar 30 01/05/17 01:39 80 16 98 Trach Collar 40 01/05/17 00:05 36.8 78 20 130/81 96 01/05/17 00:00 Trach Collar 40 01/04/17 20:00 36.8 96 26 119/64 98 Trach Collar 10.0 45 01/04/17 20:00 Trach Collar 10.0 45 01/04/17 19:53 78 20 96 Trach Collar 40 01/04/17 16:35 Room Air 01/04/17 15:59 36.7 87 22 126/68 92 Room Air Lab Results: Results Past 24 Hours Test 01/04/17 16:29 01/04/17 17:00 01/04/17 18:15 01/04/17 21:01 Range/Units Bedside Glucose 173 221 70-90 mg/dl Creatine Kinase MB Ratio 0-3.0 Creatine Kinase MB 4.6 0.5-3.6 ng/ml Troponin I < 0.015 0-0.045 ng/ml Test 01/04/17 23:00 01/04/17 23:14 01/05/17 06:42 01/05/17 07:52 Range/Units Creatine Kinase MB Ratio 0-3.0 Creatine Kinase MB 3.9 0.5-3.6 ng/ml Troponin I < 0.015 0-0.045 ng/ml Bedside Glucose 151 70-90 mg/dl White Blood Count 15.13 4.8-10.8 K/uL Red Blood Count 4.65 4.2-5.4 M/uL Hemoglobin 13.0 12.0-16.0 g/dL Hematocrit 41.2 37-47 % Mean Corpuscular Volume 88.6 80-100 fL Mean Corpuscular Hemoglobin 28.0 25-34 pg Mean Corpuscular Hemoglobin Concent 31.6 32-36 g/dl RDW Standard Deviation 48.0 36.4-46.3 fL RDW Coefficient of Variation 14.9 11.5-14.5 % Platelet Count 288 130-400 K/uL Mean Platelet Volume 9.4 7.4-10.4 fL Sodium Level 142 136-145 mmol/L Potassium Level 4.3 3.5-5.1 mmol/L Chloride Level 107 98-107 mmol/L Carbon Dioxide Level 26 21-32 mmol/L Anion Gap 9.0 3-11 mmol/L Blood Urea Nitrogen 20 7-18 mg/dl Creatinine 1.20 0.60-1.20 mg/dl Est Creatinine Clear Calc Drug Dose 79.0 ml/min Estimated GFR () 56.9 Estimated GFR (Non- 49.1 BUN/Creatinine Ratio 16.8 10-20 Random Glucose 159 70-99 mg/dl Calcium Level 9.3 8.5-10.1 mg/dl Hepatitis C Antibody Screen NEG NEG Test 01/05/17 11:48 Range/Units Bedside Glucose 188 70-90 mg/dl Microbiology Results 01/04/17 Gram Stain - Final, Resulted 01/04/17 Sputum Culture - Preliminary, Resulted MODERATE NORMAL ERI Present, Final ...
[2017-01-05] MEDS ORDERED: LEVOFLOXACIN 750MG / D5W IV SCH (19:00)
[2017-01-05] MEDS: MONTELUKAST SOD 10 MG TAB PO SCH (19:48)
[2017-01-06] VITALS (11 sets, daily range): BP systolic 116–145; BP diastolic 68–72; PULSE 59–88; TEMP 36.4–36.7; O2SAT 93–98
[2017-01-06] MEDS: ALBUT/IPRATROP 3MG/0.5MG NEB 3 ML VIAL INH SCH ×4 (00:34→20:35)
[2017-01-06] MEDS ORDERED: VANCOMYCIN TROUGH SCH (03:30)
[2017-01-06 03:57] LABS: BASO % 0.1 %; BASO ABS # 0.01 K/uL (0-0.2); COMPLETE YES; EOS % 0.1 %; HEMATOCRIT 38.9 % (37-47); IG% 0.9 %; LYMPH % 14.8 %; LYMPH ABS # 2.38 K/uL (1.2-3.4); MEAN CELL VOLUME 89.2 fL (80-100); MEAN CORPUSCULAR HEMOGLOBIN 28.2 pg (25-34); MEAN CORPUSCULAR HGB CONC 31.6 g/dl (32-36); MEAN PLATELET VOLUME 9.4 fL (7.4-10.4); MONO % 6.9 %; NEUT % 77.2 %; PLATELET COUNT 248 K/uL (130-400); RED BLOOD COUNT 4.36 M/uL (4.2-5.4); WHITE BLOOD COUNT 16.09 K/uL (4.8-10.8)
[2017-01-06 04:14] LABS: BUN/CREATININE RATIO 21.3 (10-20); CALCIUM 8.8 mg/dl (8.5-10.1); CREATININE 1.2 mg/dl (0.60-1.20); POTASSIUM 4.3 mmol/L (3.5-5.1)
[2017-01-06] MEDS: VANCOMYCIN INJ 1,750 MG in SODIUM CHLORIDE 0.9% 500ML 500 ML IV SCH (04:21)
[2017-01-06] MEDS: METHYLPREDNISOLONE IV 20 MG in SYRINGE 0 ML IV SCH ×2 (04:21→12:42)
[2017-01-06] MEDS: HEPARIN SOD 5000 UNIT/0.5 ML CARP SQ SCH ×3 (05:44→21:19)
[2017-01-06] MEDS ORDERED: LEVOTHYROXINE 200 MCG TAB PO SCH (06:00)
[2017-01-06] MEDS: METOPROLOL TARTRATE 25 MG TAB PO SCH ×2 (08:50→21:15)
[2017-01-06] MEDS: ATORVASTATIN 20 MG TAB PO SCH (08:50)
[2017-01-06] MEDS: ASPIRIN 81 MG ECTAB PO SCH (08:50)
[2017-01-06] MEDS: BuPROPion SR 100 MG TABCR PO SCH ×2 (08:50→21:14)
[2017-01-06] MEDS: PANTOprazole SOD 40 MG TAB PO SCH (08:51)
[2017-01-06] MEDS: MULTIVITAMIN TAB PO SCH (08:51)
[2017-01-06] MEDS: TOPIRAMATE 100 MG TAB PO SCH ×2 (08:51→21:17)
[2017-01-06] MEDS: ISOSORBIDE MONONITRATE 60 MG TABCR PO SCH (08:52)
--- NOTE | 2017-01-06 09:06 | Pharmacy Progress Note ---
Pharmacy Antibiotic Prog Note Date of Service: Jan 06, 2017. Subjective: The patient is currently receiving Vancomycin 1750 mg (10mg/kg) IV every 12 hours. The patient is currently on day # 3 of Vancomycin IV therapy for asthma exacerbation, COPD. Nasal swab + MRSA, sputum growing many gram positive cocci & normal jessica. Pulmonology would like to continue antibiotics until culture is finalize. Patient doing better overall clinically. Objective: Height (Feet): 5 Height (Inches): 2.00 Weight (Kilograms): 174.000 Levels: Item Value Date Time Vancomycin Level Trough 19.8 mcg/ml 01/06/17 0340 Lab Results (24hrs): Laboratory Tests Test 01/06/17 03:40 BUN/Creatinine Ratio 21.3 Blood Urea Nitrogen 26 mg/dl Creatinine 1.20 mg/dl White Blood Count 16.09 K/uL Red Blood Count 4.36 M/uL Hemoglobin 12.3 g/dL Hematocrit 38.9 % Mean Corpuscular Volume 89.2 fL Mean Corpuscular Hemoglobin 28.2 pg Mean Corpuscular Hemoglobin Concent 31.6 g/dl Platelet Count 248 K/uL Mean Platelet Volume 9.4 fL Neutrophils (%) (Auto) 77.2 % Lymphocytes (%) (Auto) 14.8 % Monocytes (%) (Auto) 6.9 % Eosinophils (%) (Auto) 0.1 % Basophils (%) (Auto) 0.1 % Neutrophils # (Auto) 12.43 K/uL Lymphocytes # (Auto) 2.38 K/uL Monocytes # (Auto) 1.11 K/uL Eosinophils # (Auto) 0.01 K/uL Basophils # (Auto) 0.01 K/uL Micro Results: Item Value Date Time Gram Stain - Final Resulted 01/04/17 1935 Sputum Trach. Tube Suction Multiple gram positive cocci Normal jessica MRSA DNA Surveillance Screen - Final Complete 01/04/17 0000 Nasal Specimen Positive for MRSA by DNA Probe Assessment & Plan: This Vancomycin trough drug level of 19.8mcg/ml is Therapeutic. However, this is prior to 4th total dose, and patient is morbidly obese (BMI=70kg/m2), so she will likely accumulate and is at the top of her goal range for trough. I will reduce patient's dose and recheck trough after 3 doses of longer dosing interval. I will continue 10mg/kg, as this is reduced already from 15mg/kg for obese pt. * Change to Vancomycin 1750 mg (10mg/kg) IV every 18 hours. * Goal trough level estimate: between 15 - 20 mcg/mL. * Trough level has been ordered for: prior to 1000 dose. Pharmacy will continue to follow and will adjust dose/frequency as necessary. Thank you
--- NOTE | 2017-01-06 13:03 | PROGRESS NOTE ---
DATE: 01/06/2017 DATE: 01/06/2017. PROBLEM LIST: Includes: 1. Asthma exacerbation. 2. Chronic obstructive pulmonary disease. 3. Status post tracheostomy. 4. Obesity. SUBJECTIVE: The patient reports that she is feeling much better today. She states that her breathing is about 80% of being back to normal. She still has a little bit of cough and wheeze at times. She states that when she uses her walker and gets up and tries to walk to the bathroom she still has wheezing but that is improving as well. She does have a little bit of cough but that has improved. She states that the blood she was seeing in the mucus when she was first admitted is decreasing significantly. She has no chest pain. No chest heaviness, no tightness. No other concerns. No abdominal pain, no nausea or vomiting, no indigestion or heartburn. No increased swelling in her extremities. OBJECTIVE: GENERAL: The patient is a 61-year-old female sitting at bedside in no acute distress. She is alert and oriented x3. Mood is good. Affect is good. VITAL SIGNS: Temp is 36.6, pulse 60, respiration 18, blood pressure is 145/68, pulse ox 95% on 4 liters. NECK: Supple, short, thick. No mass, no adenopathy. No bruit. CHEST: The patient still has a very faint wheeze in the upper airways bilaterally. No rale or rhonchi noted. CARDIOVASCULAR: Regular rate and rhythm, distant heart sounds, no murmurs, gallops or rubs. ABDOMEN: Bowel sounds are present. Abdomen soft, nontender. No guarding, rigidity or organomegaly. EXTREMITIES: No erythema, no significant edema, no cyanosis or clubbing. NEUROLOGIC: Cranial nerves II through XII are grossly intact. No focal deficit noted. LABORATORY DATA: Shows white count 16,000, H\T\H 12.3 and 38.9, platelet count 248,000. No new imaging data. IMPRESSION: This is a 61-year-old female with exacerbation of her asthma/COPD who seems to be responding well to current course of treatment. At this time I would transition her over to oral prednisone at 20 mg b.i.d. I would also recommend to continue levofloxacin to continue a 10-day course. If she continues to do well, I think that the patient probably can safely be discharged to home tomorrow with a followup in the office in approximately 2-3 weeks. I will see the patient in the office for followup. Also continue aggressive pulmonary toilet as it is.
[2017-01-06] MEDS: LEVOFLOXACIN 750 MG TAB PO SCH (16:49)
--- NOTE | 2017-01-06 16:49 | Progress Note ---
Internal Med Progress Note Date of Service: Jan 06, 2017. Provider Documentation: SUBJECTIVE: Patient is seen and examined at bedside. Patient states her cough and SOB have improved dramatically. Reports no hemoptysis. Minimal SOB on exertion. Denies any chest pain. Offers no other complaints. Family at bedside. OBJECTIVE: Vital Signs-as noted below Physical Exam: Vitals signs as noted above General Appearance:Obese, no apparent distress Head: normocephalic, Atraumatic Eyes: normal inspection, EOMI, PERRLA Neck: supple, no JVD, Trachea midline Respiratory/Chest: Decreased breath sounds, CTA, No accessory muscle use + Trach color Cardiovascular: S1, S2, NSR, No murmur Abdomen/GI:Soft, Non tender, Bowel sounds present Extremities/Musculoskelatal:normal inspection, 1+ edema Neurologic/Psych:AAOX3, grossly no focal neurological deficits Skin: normal color, warm Lab data as noted below. ASSESSMENT & PLAN: ASTHMA EXACERBATION H/O COPD CHRONIC RESPIRATORY FAILURE S/P TRACH Continue to monitor in Tele Patient presented with worsening shortness of breath and cough x 4 days CXR: no consolidation; Mild CHF: clinically no volume overloaded S/P IV steroids now transitioned to PO steroids Continue bronchodilators MRSA nasal swab positive on chronic azithromycin MWF: Hold for now Continue Levaquin and will DC Vanco FU cultures: Sputum: Moderate normal jessica Appreciate pulmonary input On 5L oxygen at bedtime at baseline Leukocytosis likely secondary to steroids PLEURITIC CHEST PAIN, NEW RBBB likely secondary to persistent coughing/Asthma Exacerbation Resolved EKG shows new RBBB Troponin X 2: negative ECHO:pending DM Last A1C: 7.2 on 09/2016 on insulin pump - patient to manage CKD STAGE III Baseline creat runs in the low 1's, noted to be 1.2 today continue to monitor Avoid nephrotoxic agents when able CHRONIC LOWER EXTREMITY EDEMA Hold torsemide due to acute illness HTN controlled continue isosorbide and metoprolol HYPOTHYROIDISM continue levothyroxine DVT PROPHYLAXIS SQ Heparin CODE STATUS Full code DISPO Plan to transfer to medical floor. Plan to discharge tomorrow if stable, once cleared by Pulmonology Needs FU with Pum () in 2 weeks as outpatient Vital Signs: Date Time Temp Pulse Resp B/P Pulse Ox O2 Delivery O2 Flow Rate FiO2 01/06/17 16:00 Trach Collar 30 01/06/17 14:08 82 16 96 Trach Collar 28 01/06/17 12:00 Trach Collar 30 01/06/17 11:49 36.6 60 19 145/68 95 Trach Collar 8.0 01/06/17 08:11 36.5 61 20 128/72 98 Trach Collar 8.0 01/06/17 08:00 Trach Collar 30 01/06/17 07:30 62 16 96 Trach Collar 28 01/06/17 04:55 36.7 59 18 116/72 96 Humidified Oxygen 8.0 Trach Collar 01/06/17 04:00 Trach Collar 10.0 30 01/06/17 00:34 88 16 98 Trach Collar 28 01/06/17 00:20 36.6 68 16 123/72 98 Humidified Oxygen 8.0 Trach Collar 01/06/17 00:01 Trach Collar 10.0 30 01/05/17 20:34 84 16 95 Trach Collar 24 01/05/17 20:00 Trach Collar 10.0 30 01/05/17 18:54 36.5 70 18 126/66 94 Room Air Lab Results: Results Past 24 Hours Test 01/05/17 20:27 01/06/17 03:40 01/06/17 06:54 01/06/17 11:30 Range/Units Bedside Glucose 133 119 104 70-90 mg/dl White Blood Count 16.09 4.8-10.8 K/uL Red Blood Count 4.36 4.2-5.4 M/uL Hemoglobin 12.3 12.0-16.0 g/dL Hematocrit 38.9 37-47 % Mean Corpuscular Volume 89.2 80-100 fL Mean Corpuscular Hemoglobin 28.2 25-34 pg Mean Corpuscular Hemoglobin Concent 31.6 32-36 g/dl Platelet Count 248 130-400 K/uL Mean Platelet Volume 9.4 7.4-10.4 fL Neutrophils (%) (Auto) 77.2 % Lymphocytes (%) (Auto) 14.8 % Monocytes (%) (Auto) 6.9 % Eosinophils (%) (Auto) 0.1 % Basophils (%) (Auto) 0.1 % Neutrophils # (Auto) 12.43 1.4-6.5 K/uL Lymphocytes # (Auto) 2.38 1.2-3.4 K/uL Monocytes # (Auto) 1.11 0.11-0.59 K/uL Eosinophils # (Auto) 0.01 0-0.5 K/uL Basophils # (Auto) 0.01 0-0.2 K/uL RDW Standard Deviation 48.9 36.4-46.3 fL RDW Coefficient of Variation 14.9 11.5-14.5 % Immature Granulocyte % (Auto) 0.9 % Immature Granulocyte # (Auto) 0.15 0.00-0.02 K/uL Sodium Level 144 136-145 mmol/L Potassium Level 4.3 3.5-5.1 mmol/L Chloride Level 110 98-107 mmol/L Carbon Dioxide Level 26 21-32 mmol/L Anion Gap 8.0 3-11 mmol/L Blood Urea Nitrogen 26 7-18 mg/dl Creatinine 1.20 0.60-1.20 mg/dl Est Creatinine Clear Calc Drug Dose 79.0 ml/min Estimated GFR () 56.9 Estimated GFR (Non- 49.1 BUN/Creatinine Ratio 21.3 10-20 Random Glucose 101 70-99 mg/dl Calcium Level 8.8 8.5-10.1 mg/dl Vancomycin Level Trough 19.8 SEE COMMENT mcg/ml Test 01/06/17 16:19 Range/Units Bedside Glucose 116 70-90 mg/dl
[2017-01-06] MEDS: MONTELUKAST SOD 10 MG TAB PO SCH (21:17)
[2017-01-06] MEDS ORDERED: VANCOMYCIN INJ 1,750 MG in SODIUM CHLORIDE 0.9% 500ML 500 ML IV SCH (22:00)
[2017-01-07] MEDS: ALBUT/IPRATROP 3MG/0.5MG NEB 3 ML VIAL INH SCH ×3 (02:59→14:09)
[2017-01-07] MEDS: LEVOTHYROXINE 200 MCG TAB PO SCH (06:07)
[2017-01-07] MEDS: HEPARIN SOD 5000 UNIT/0.5 ML CARP SQ SCH ×2 (06:12→14:03)
[2017-01-07 07:12] VITALS: BP 154/81; PULSE 58; TEMP 36.6; O2SAT 97
[2017-01-07 07:16] LABS: HEMATOCRIT 42.2 % (37-47); MEAN CELL VOLUME 89.8 fL (80-100); MEAN CORPUSCULAR HEMOGLOBIN 28.3 pg (25-34); MEAN CORPUSCULAR HGB CONC 31.5 g/dl (32-36); MEAN PLATELET VOLUME 9.8 fL (7.4-10.4); PLATELET COUNT 256 K/uL (130-400); WHITE BLOOD COUNT 11.72 K/uL (4.8-10.8)
[2017-01-07 07:18] VITALS: PULSE 78; O2SAT 96
[2017-01-07] MEDS: TOPIRAMATE 100 MG TAB PO SCH (07:43)
[2017-01-07] MEDS: BuPROPion SR 100 MG TABCR PO SCH (07:43)
[2017-01-07] MEDS: ISOSORBIDE MONONITRATE 60 MG TABCR PO SCH (07:43)
[2017-01-07] MEDS: ATORVASTATIN 20 MG TAB PO SCH (07:44)
[2017-01-07] MEDS: ASPIRIN 81 MG ECTAB PO SCH (07:44)
[2017-01-07] MEDS: MULTIVITAMIN TAB PO SCH (07:44)
[2017-01-07] MEDS: ERGOCALCIFEROL 50,000 INTER.UNIT CAP PO SCH (07:44)
[2017-01-07] MEDS: METOPROLOL TARTRATE 25 MG TAB PO SCH (07:44)
[2017-01-07] MEDS: PANTOprazole SOD 40 MG TAB PO SCH (07:44)
[2017-01-07 07:56] LABS: BUN/CREATININE RATIO 21.1 (10-20); CALCIUM 8.8 mg/dl (8.5-10.1); CREATININE 1.3 mg/dl (0.60-1.20)
[2017-01-07] MEDS: LEVOFLOXACIN 750 MG TAB PO SCH (12:53)
--- NOTE | 2017-01-07 13:33 | Progress Note ---
Internal Med Progress Note Date of Service: Jan 07, 2017. Provider Documentation: SUBJECTIVE: Patient is seen and examined at bedside. Feels much better. Denies any cough and SOB. Offers no other complaints. Family at bedside. OBJECTIVE: Vital Signs-as noted below Physical Exam: Vitals signs as noted above General Appearance:Obese, no apparent distress Head: normocephalic, Atraumatic Eyes: normal inspection, EOMI, PERRLA Neck: supple, no JVD, Trachea midline Respiratory/Chest: Decreased breath sounds, CTA, No accessory muscle use + Trach color Cardiovascular: S1, S2, NSR, No murmur Abdomen/GI:Soft, Non tender, Bowel sounds present Extremities/Musculoskelatal:normal inspection, 1+ edema Neurologic/Psych:AAOX3, grossly no focal neurological deficits Skin: normal color, warm Lab data as noted below. ASSESSMENT & PLAN: ASTHMA EXACERBATION H/O COPD CHRONIC RESPIRATORY FAILURE S/P TRACH Continue to monitor in Tele Patient presented with worsening shortness of breath and cough x 4 days CXR: no consolidation; Mild CHF: clinically no volume overloaded S/P IV steroids now transitioned to PO steroids Continue steroid taper Continue bronchodilators MRSA nasal swab positive on chronic azithromycin MWF: Hold for now Continue Levaquin to complete 7 day course as outpatient FU cultures: Sputum: Moderate normal jessica Appreciate pulmonary input On 5L oxygen at bedtime at baseline Leukocytosis likely secondary to steroids PLEURITIC CHEST PAIN, NEW RBBB likely secondary to persistent coughing/Asthma Exacerbation Resolved EKG shows new RBBB Troponin X 2: negative DM Last A1C: 7.2 on 09/2016 on insulin pump - patient to manage CKD STAGE III Baseline creat runs in the low 1's, noted to be 1.3 today continue to monitor Avoid nephrotoxic agents when able CHRONIC LOWER EXTREMITY EDEMA Hold torsemide due to acute illness HTN controlled continue isosorbide and metoprolol HYPOTHYROIDISM continue levothyroxine DVT PROPHYLAXIS SQ Heparin CODE STATUS Full code DISPO Plan to discharge home today. Needs FU with Pum () in 2 weeks as outpatient Follow up with on Jan 14 at 9:10 AM Vital Signs: Date Time Temp Pulse Resp B/P Pulse Ox O2 Delivery O2 Flow Rate FiO2 01/07/17 08:00 Room Air 01/07/17 07:18 78 16 96 Room Air 01/07/17 07:12 36.6 58 20 154/81 97 01/07/17 02:00 Trach Collar 28 01/06/17 23:17 36.4 66 20 116/68 98 Trach Collar 10.0 01/06/17 20:35 78 16 98 Trach Collar 28 01/06/17 19:45 Room Air 01/06/17 19:40 36.6 82 18 119/69 93 Room Air 01/06/17 18:24 36.6 82 16 96 8.0 01/06/17 16:00 Trach Collar 30 01/06/17 14:08 82 16 96 Trach Collar 28 Lab Results: Results Past 24 Hours Test 01/06/17 16:19 01/06/17 20:05 01/07/17 01:16 01/07/17 06:41 Range/Units Bedside Glucose 116 131 76 70-90 mg/dl White Blood Count 11.72 4.8-10.8 K/uL Red Blood Count 4.70 4.2-5.4 M/uL Hemoglobin 13.3 12.0-16.0 g/dL Hematocrit 42.2 37-47 % Mean Corpuscular Volume 89.8 80-100 fL Mean Corpuscular Hemoglobin 28.3 25-34 pg Mean Corpuscular Hemoglobin Concent 31.5 32-36 g/dl RDW Standard Deviation 49.7 36.4-46.3 fL RDW Coefficient of Variation 15.0 11.5-14.5 % Platelet Count 256 130-400 K/uL Mean Platelet Volume 9.8 7.4-10.4 fL Sodium Level 141 136-145 mmol/L Potassium Level 4.0 3.5-5.1 mmol/L Chloride Level 106 98-107 mmol/L Carbon Dioxide Level 27 21-32 mmol/L Anion Gap 8.0 3-11 mmol/L Blood Urea Nitrogen 27 7-18 mg/dl Creatinine 1.30 0.60-1.20 mg/dl Est Creatinine Clear Calc Drug Dose 72.4 ml/min Estimated GFR () 51.6 Estimated GFR (Non- 44.6 BUN/Creatinine Ratio 21.1 10-20 Random Glucose 135 70-99 mg/dl Calcium Level 8.8 8.5-10.1 mg/dl Test 01/07/17 07:36 01/07/17 11:17 Range/Units Bedside Glucose 118 106 70-90 mg/dl
[2017-01-07] MEDS ORDERED: LVQ750 PO (14:01)
[2017-01-07] MEDS ORDERED: PRD20 PO (14:01)
--- NOTE | 2017-01-07 14:06 | Discharge Summary ---
Discharge Summary Admission Date: Jan 04, 2017 at 13:52 Discharge Disposition: Home Principal Diagnosis: ASTHMA EXACERBATION Procedures: CXR: Mild congestive heart failure Venous Doppler: No DVT within the right or left lower extremity Consultations: Pulmonology Pending Studies/Follow-Up: Follow up with on Jan 14 at 9:10AM Follow up with Anastacia Kevin (Pulmonary) on Jan 18 at 11:30AM Complete the antibiotic and steroid course as prescribed. Seek immediate medical attention if your symptoms worsen or reoccur Medication Reconciliation New Medications: Prednisone (Prednisone) 20 Mg Tab 10 MG PO DAILY for 9 Days, #18 Start taking 30mg for 3 days, then 20mg for 3 days and then 10mg for 3 days Levofloxacin (Levofloxacin) 750 Mg Tab 750 MG PO DAILY@11 for 7 Days, #7 TAB Continued Medications: Acetaminophen (Tylenol) 500 Mg Tab 500 MG PO UD PRN for Pain or Fever, 0 Refills Albuterol Sulfate (Proair Respiclick) 108 Mcg/Act Aer 2 PUFFS INH Q4H PRN for SOB/Wheezing Aspirin (Aspirin Ec) 81 Mg Tab 81 MG PO DAILY Atorvastatin (Atorvastatin Calcium) 20 Mg Tab 20 MG PO DAILY Azithromycin (Zithromax) 250 Mg Tab 250 MG PO UD, TAB tuesday, tuesday, tuesday Bupropion (Wellbutrin Sr) 100 Mg Ertab 100 MG PO DAILY Bupropion (Wellbutrin Sr) 100 Mg Ertab 200 MG PO HS for 30 Days, TAB 1 Refill Clobetasol Propionate (Clobetasol Propionate Cream 0.05%) 90 Appln/30 Gm Cr 1 APPLN EXT, TUBE Desloratadine (Clarinex) 5 Mg Tab 5 MG PO DAILY, TAB Ergocalciferol (Vitamin D) 50,000 Interunit Cap 1 CAP PO 3XWK TAKE THIS MEDICATION EVERY TUESDAY,TUESDAY AND TUESDAY. Folic Acid (Folic Acid) 1 Mg Tab 1 MG PO DAILY Guaifenesin-Codeine (Robitussin-Ac Syrup) 1 Syp Syp 5 ML PO Q4H PRN for Cough for 8 Days, #240 ML Insulin Human Lispro (Insulin Humalog Pump ) Pump 1 EA N/A UD, EA Ipratropium-Albuterol (Duoneb) 3 Ml Nebu 1 TREATMENT INH QID PRN for Coughing,WHZ or SOB, INHA Ipratropium-Albuterol (Combivent Respimat) 1 Aer Aer 1 PUFF INH QID Isosorbide Mononitrate Ext Rel (Imdur Ext Rel) 60 Mg Ertab 60 MG PO DAILY Levothyroxine Sodium (Levothyroxine Sodium) 200 Mcg Tab 200 MCG PO 5XWK TAKE 200 MCG EVERY TUESDAY,TUESDAY,TUESDAY,TUESDAY AND TUESDAY. Levothyroxine Sodium (Levothyroxine Sodium) 200 Mcg Tab 300 MCG PO 2XWK TAKE 300 MCG EVERY TUESDAY AND TUESDAY. Lorazepam (Ativan) 1 Mg Tab 1 MG PO Q8 PRN for Anxiety, TAB Metoprolol Tartrate (Lopressor) 25 Mg Tab 12.5 MG PO BID Mometasone Furoate (Nasal) (Mometasone Furoate) 50 Mcg/Act Spr 2 SPRAYS NA DAILY Mometasone Furoate-Formoterol (Dulera 200/5 Mcg) 1 Aer Aer 2 PUFFS INH BID RINSE MOUTH AFTER USE. Montelukast Sod (Montelukast Sodium) 10 Mg Tab 10 MG PO DAILY Multivitamin (Multivitamin) Tab 1 TAB PO DAILY, TAB Nitroglycerin (Nitrostat) 0.4 Mg Tab 0.4 MG UT UD PRN for Chest Pain, [address] ONE TABLET UNDER THE TONGUE EVERY 5 MINUTES FOR UP TO 3 DOSES OVER 15 MINUTES IF NEEDED FOR CHEST PAIN. Oxygen (Oxygen) Gas 5 LITERS MS UD VIA TRACH MIST MASK Pantoprazole (Pantoprazole Sodium) 40 Mg Tab 40 MG PO DAILY Potassium Chloride (Potassium Chloride Cr) 10 Meq Tab 10 MEQ PO BID Topiramate (Topiramate) 100 Mg Tab 100 MG PO DAILY Topiramate (Topamax) 200 Mg Tab 200 MG PO HS, TAB Torsemide (Demadex) 20 Mg Tab 20 MG PO DAILY Tramadol (Ultram) 50 Mg Tab 50 MG PO Q4H PRN for Pain, TAB Discontinued Medications: Prednisone Tab (Prednisone) 10 Mg Tab 10 MG PO DAILY, TAB currently on taper - 30mg x 2 days, 20mg x 2 days, 10mg x 2 days Admission Information HPI (per Admitting provider): 61 year old female who presents to the ER with cough and shortness of breath. Patient reports her symptoms started 5 days ago. She was seen by her PCP on 2/ 10 and was started on Prednisone taper and cough syrup. She reports no improvement in her symptoms. She called the office again yesterday and was prescribed azithromycin however never picked it up from the pharmacy. She reports the cough as harsh, barking, and non productive. She reports she feels a lot of congestion in her chest. She denies fever and chills. She reports she has developed chest pain. She reports the pain is across her chest and is brought on coughing and taking a deep breath. She also reports increasing shortness of breath at rest as well as with exertion. Patient has chronic lower extremity edema which is unchanged. She denies lightheadedness, dizziness, diaphoresis, or syncopal events. No abdominal pain, nausea, vomiting, or diarrhea. She denies urinary symptoms. In the ER, patient is saturating well on room air. CXR does not show signs of pneumonia. She was given a 1hour long neb treatment and solu-medrol 125mg IV. EKG shows new RBBB. Initial troponin is negative. Physical Exam (per Admitting): General Appearance: no apparent distress Head: normocephalic Eyes: normal inspection ENT: hearing grossly normal Neck: supple, + pertinent finding (large neck, metal trach in place) Respiratory/Chest: no respiratory distress, + decreased breath sounds, + wheezing (scattered, expiratory) Cardiovascular: regular rate, rhythm, + pertinent finding (+1-2 edema BLLE ) Abdomen/GI: normal bowel sounds, non tender, soft Extremities/Musculoskelatal: normal inspection, no calf tenderness Neurologic/Psych: no motor/sensory deficits, alert, normal mood/affect, oriented x 3 Skin: normal color, warm/dry Hospital Course ASTHMA EXACERBATION H/O COPD CHRONIC RESPIRATORY FAILURE S/P TRACH Continue to monitor in Tele Patient presented with worsening shortness of breath and cough x 4 days CXR: no consolidation; Mild CHF: clinically no volume overloaded S/P IV steroids now transitioned to PO steroids Continue steroid taper Continue bronchodilators MRSA nasal swab positive on chronic azithromycin MWF: Hold for now Continue Levaquin to complete 7 day course as outpatient FU cultures: Sputum: Moderate normal jessica Appreciate pulmonary input On 5L oxygen at bedtime at baseline Leukocytosis likely secondary to steroids PLEURITIC CHEST PAIN, NEW RBBB likely secondary to persistent coughing/Asthma Exacerbation Resolved EKG shows new RBBB Troponin X 2: negative DM Last A1C: 7.2 on 09/2016 on insulin pump - patient to manage CKD STAGE III Baseline creat runs in the low 1's, noted to be 1.3 today continue to monitor Avoid nephrotoxic agents when able CHRONIC LOWER EXTREMITY EDEMA Hold torsemide due to acute illness HTN controlled continue isosorbide and metoprolol HYPOTHYROIDISM continue levothyroxine DVT PROPHYLAXIS SQ Heparin CODE STATUS Full code DISPO Plan to discharge home today. Needs FU with Pum () in 2 weeks as outpatient Follow up with on Jan 14 at 9:10 AM Total time spent on discharge = This includes examination of the patient, discharge planning, medication reconciliation, and communication with other providers. Discharge Instructions Discharge Instructions Admission Reason for Admission: Copd Exacerbation Discharge Discharge Diagnosis / Problem: Asthma/COPD exacerbation Discharge Goals Goal(s): Decrease discomfort, Improve function Activity Recommendations Activity Limitations: resume your previous activity Exercise/Sports Limitations: as tolerated . Instructions / Follow-Up Instructions / Follow-Up Follow up with on Jan 14 at 9:10AM Follow up with Anastacia Kevin (Pulmonary) on Jan 18 at 11:30AM Complete the antibiotic and steroid course as prescribed. Seek immediate medical attention if your symptoms worsen or reoccur Current Hospital Diet Patient's current hospital diet: Diabetes Type 2 Diet Discharge Diet Recommended Diet: Diabetes Type 2 Diet Pending Studies Studies pending at discharge: no Medical Emergencies . Who to Call and When: Medical Emergencies: If at any time you feel your situation is an emergency, please call 911 immediately. . Non-Emergent Contact Non-Emergency issues call your: Primary Care Provider, It Security Engineer Call Non-Emergent contact if: you have a fever, your pain is worsening, you have any medication questions . . "Provider Documentation" section prepared by Lele Sosa. VTE Core Measure Inpt VTE Proph given/why not?: Unfractionated heparin SQ
[2017-01-07 14:21] VITALS: BP 154/81; PULSE 78; TEMP 36.6; O2SAT 96
--- NOTE | 2017-01-07 14:24 | PROGRESS NOTE ---
DATE: 01/07/2017 PROBLEM LIST: Includes: 1. Asthma exacerbation. 2. Chronic obstructive pulmonary disease. 3. Status post tracheostomy. 4. Obesity. SUBJECTIVE: The patient is feeling well today. She feels that she is pretty much back to her baseline. She has very little cough or wheeze at this point, she has very little shortness of breath. She is taking and tolerating her medications well. She denies any other concerns or problems. She has been up, moving around her room without difficulty. No GI complaints. No nausea or vomiting, no indigestion or heartburn, no difficulty with her bowel. No difficulty voiding. No swelling in her extremities. OBJECTIVE: GENERAL: The patient is a 61-year-old female sitting at bedside. She is alert and oriented x3. Mood is good. Affect is good. VITAL SIGNS: Temp 36.6, pulse 58, respirations 20, blood pressure is 154/81, pulse ox 97% on room air. HEENT: Normocephalic, atraumatic. Pupils equal, round and reactive to light and accommodation. Extraocular movements are intact. [place] moist gingival and buccal mucosa. NECK: Supple. There is no mass, no adenopathy or bruit. CHEST: Still with faint expiratory wheeze. No rale or rhonchi noted. CARDIOVASCULAR: Regular rate and rhythm, distant heart sounds. No murmurs, gallops or rubs appreciated. ABDOMEN: Bowel sounds are present. Abdomen soft, nontender. No guarding, rigidity or organomegaly. EXTREMITIES: No erythema, no edema, no cyanosis or clubbing. NEUROLOGIC: Cranial nerves II through XII are grossly intact. No focal deficit noted. IMPRESSION: A 61-year-old female with exacerbation of her asthma/chronic obstructive pulmonary disease. She is doing well. At this time, I think that she can safely be transitioned to home today. I would like for her to follow up in the office in approximately 2 weeks. She is aware of this and will call the office. She will need to go home on a prednisone taper and continue for a full 10-day course of Levaquin. I have spoken with Dr. Sosa, hospitalist, for this and they are planning on doing the discharge today.
--- NOTE | 2017-01-08 06:50 | ECHOCARDIOGRAM REPORT ---
*NOTICE TO RECEIVING DEMOCRAT AGENCY This information is strictly Confidential and protected under [place] law. [place] law prohibits you from making any further disclosure of this information unless further disclosure is expressly permitted by the written consent of the person to whom it pertains or is authorized by law. A general authorization for the release of medical or other information is not sufficient for this purpose. Hospital accepts no responsibility if the information is made available to any other person, INCLUDING THE PATIENT. Interpretation Summary * Name: ANN JACKSON Study Date: 01/07/2017 11:22 AM BP: 154/81 mmHg * Patient Location: [facility] HR: 66 * : 1955 (M/d/yyyy) Gender: Female Height: 62 in * Age: 61 yrs Ethnicity: [place] Weight: 383 lb * Ordering Physician: Hortencia Lynch * Referring Physician: No Doctor, Assigned * Performed By: Lorrie Pryor RCS * * Reason For Study: SOB * BSA: 2.5 m2 * The study was technically difficult. * The study was technically limited. * -- Conclusions -- * The study was technically limited due to patient characteristics / poor acoustic windows. * Refer to below for details. Procedure Details * A complete two-dimensional transthoracic echocardiogram was performed (2D, M-mode, Doppler and color flow Doppler). * The study was technically difficult. * The study was technically limited. * There were technical limitations due to patient's poor acoustic windows secondary to severe lung disease and supine positioning for imagining. Left Ventricle * The left ventricle is normal in size. * There is mild concentric left ventricular hypertrophy. * The left ventricular ejection fraction is grossly normal. * The images are insufficient to grade regional wall motion. Right Ventricle * The right ventricualr chamber size and systolic function is grossly normal on limited evaluation. Atria * The left atrial size is normal. * Right atrial size is normal. * There is no evidence of atrial septal defect, but resolution does not allow assessment for a patent foramen ovale. Mitral Valve * The mitral valve is not well visualized. * There is no mitral valve stenosis. * Significant mitral regurgitation is absent. Tricuspid Valve * The tricuspid valve is normal. * The tricuspid valve is not well visualized. * There is no tricuspid stenosis. * Significant tricuspid regurgitation is absent. * The tricuspide regurgitation jet is insufficient to allow calculation of the right ventricular and pulmonary artery systolic pressure. Aortic Valve * The aortic valve is not well visualized. * Aortic stenosis is absent. * There is no significant aortic regurgitation. Pulmonic Valve * The pulmonary valve is not well seen, but the Doppler examination is normal without significant regurgitation or stenosis. Great Vessels * The aortic root and proximal ascending aorta are normal sized. Pericardium/Pleural * There is no pericardial effusion. Great Vessels * Normal inferior vena cava diameter and respiratory variation suggests normal central venous pressure. MMode 2D Measurements and Calculations Ao root diam 3.2 cm Ao root area 8.2 cm\S\2 ACS 2.0 cm LA dimension 4.2 cm LA/Ao 1.3 Doppler Measurements and Calculations MV E max joey 88.3 cm/sec MV A max joey 87.7 cm/sec MV E/A 1.0 MV P1/2t max joey 101.5 cm/sec MV P1/2t 83.3 msec MVA(P1/2t) 2.6 cm\S\2 MV dec slope 357.2 cm/sec\S\2 MV dec time 0.20 sec Ao V2 max 137.7 cm/sec Ao max PG 7.6 mmHg Ao max PG (full) 4.1 mmHg LV V1 max PG 3.4 mmHg LV V1 max 92.7 cm/sec PA V2 max 98.9 cm/sec PA max PG 3.9 mmHg TR max joey 199.7 cm/sec
[2017-01-08] MEDS ORDERED: VANCOMYCIN TROUGH SCH (09:30)
== END 2017-01-07 14:42 | disposition home or self-care (01) | DRG 191 ==
LOC: ENRESERVDT → CANRESERV → ENRESERVTM → C.EDB 11:04 → C.2T 13:52 → UNDOADMIN 13:52 → C.4E 01-06 19:07
PROVIDERS: ADMIT Internal Medicine; ATTEND Internal Medicine
DX: J44.1 Chronic obstructive pulmonary disease with (acute) exacerbation (principal); J96.10 Chronic respiratory failure, unspecified whether with hypoxia or hypercapnia; E66.2 Morbid (severe) obesity with alveolar hypoventilation; Z68.45 Body mass index [BMI] 70 or greater, adult; E78.00 Pure hypercholesterolemia, unspecified; I45.10 Unspecified right bundle-branch block; N18.3 Chronic kidney disease, stage 3 (moderate); I12.9 Hypertensive chronic kidney disease with stage 1 through stage 4 chronic kidney disease, or unspecified chronic kidney disease; E11.22 Type 2 diabetes mellitus with diabetic chronic kidney disease; E03.9 Hypothyroidism, unspecified; I25.2 Old myocardial infarction; I50.9 Heart failure, unspecified; D72.829 Elevated white blood cell count, unspecified; T38.0X5A Adverse effect of glucocorticoids and synthetic analogues, initial encounter; Z93.0 Tracheostomy status; Z96.41 Presence of insulin pump (external) (internal); Z79.4 Long term (current) use of insulin; Z79.82 Long term (current) use of aspirin; Z79.899 Other long term (current) drug therapy; Z80.1 Family history of malignant neoplasm of trachea, bronchus and lung; Z82.41 Family history of sudden cardiac death

== ENCOUNTER 2017-02-03 11:55 | Emergency (ER) | payer OTHER ==
[~2017-02-03 11:55] MED LIST changes: +ALBU18002 INH; +ATV/1 PO; -CEFU1TAB35 PO; +CLBCRM30 EXT; +GUAISYP5 PO; +LVQ750 PO; +MOME6000; -NSNN50 NAE; +POTA10TA30 PO; +PRD20 PO; +SNG10 PO; +TOPI200T14 PO; +TRAM-10 PO
[2017-02-03 12:01] VITALS: TEMP 36.5; Ht 157.5 cm
[2017-02-03 13:38] VITALS: O2SAT 95
[2017-02-03 13:45] LABS: BASO % 0.2 %; BASO ABS # 0.02 K/uL (0-0.2); COMPLETE YES; EOS % 3.2 %; HEMATOCRIT 40.6 % (37-47); IG% 1.3 %; LYMPH % 21.4 %; LYMPH ABS # 2.23 K/uL (1.2-3.4); MEAN CORPUSCULAR HEMOGLOBIN 28.7 pg (25-34); MEAN CORPUSCULAR HGB CONC 31.5 g/dl (32-36); MEAN PLATELET VOLUME 9.2 fL (7.4-10.4); MONO % 5.8 %; NEUT % 68.1 %; PLATELET COUNT 274 K/uL (130-400); RED BLOOD COUNT 4.46 M/uL (4.2-5.4); WHITE BLOOD COUNT 10.44 K/uL (4.8-10.8)
[2017-02-03 13:58] LABS: PARTIAL THROMBOPLASTIN RATIO 0.9; PROTHROMBIN TIME (PATIENT) 10.8 SECONDS (9.0-12.0)
[2017-02-03] MEDS ORDERED: ALBUT/IPRATROP 3MG/0.5MG NEB 3 ML VIAL INH ONE (14:00)
[2017-02-03 14:03] LABS: ALT/SGPT 29 U/L (12-78); BLOOD UREA NITROGEN 15 mg/dl (7-18); BUN/CREATININE RATIO 11.2 (10-20); CALCIUM 9.3 mg/dl (8.5-10.1); CARBON DIOXIDE 31 mmol/L (21-32); CHLORIDE 108 mmol/L (98-107); GLUCOSE 114 mg/dl (70-99); POTASSIUM 4.1 mmol/L (3.5-5.1); SODIUM 143 mmol/L (136-145)
[2017-02-03 14:05] LABS: ALB/GLOB RATIO 0.6 (0.9-2); ALKALINE PHOSPHATASE 95 U/L (45-117); AST/SGOT 21 U/L (15-37)
--- NOTE | 2017-02-03 14:28 | DIAGNOSTIC IMAGING REPORT ---
CHEST 2 VIEWS ROUTINE CLINICAL HISTORY: Productive cough dyspnea COMPARISON STUDY: 01/04/2017 FINDINGS: Poor study technically due to patient respiratory and somatic motion. Stable cardiomegaly. Tracheostomy tube in good position. Prominent pulmonary vasculature. No well-defined focal infiltrate is not appreciated within the limitations described. IMPRESSION: 1. Limited study due to patient body habitus and respiratory motion. 2. Cardiomegaly. 3. Probable pulmonary vascular congestion Electronically signed by: Neftali Trotter M.D. 02/03/2017 2:27 PM Dictated Date/Time: 02/03/2017 2:26 PM
[2017-02-03 14:30] VITALS: PULSE 89; O2SAT 94
--- NOTE | 2017-02-03 15:39 | EMERGENCY ROOM VISIT NOTE ---
ED Visit Note First contact with patient: 13:37 I have personally seen and evaluated the patient with the physician sales assistant displays. I agree with the diagnostic/management decisions and have personally been involved in these decisions and agree with the diagnosis.
[2017-02-03 16:23] VITALS: BP 130/70; PULSE 82; O2SAT 100
--- NOTE | 2017-02-03 17:37 | EMERGENCY ROOM VISIT NOTE ---
History First contact with patient: 13:37 Chief Complaint: COUGH Stated Complaint: COUGHING UP BLOOD Nursing Triage Summary: Patient states has been coughing up some blood and some thick mucous that started Tuesday and got worse today. Patient has a trach. Patient is able to cough up secretions today, but sometimes clogs trach. Patients daughter says she has changed the trach twice so far today. History of Present Illness The patient is a 61 year old female who presents to the Emergency Room with complaints of a productive cough that has been worsening for the past 4 days. The patient has a history of COPD and tracheostomy. She is currently under the management of Chuck Malin PA-C. The patient has had a prior history of pneumonia and COPD exacerbation requiring admission. The patient denies any chest pain, back pain, headache or neck pain. She has not had any fever or chills. She denies any pain on exam. Review of Systems HEENT: Denies dizziness, visual problems, hearing loss, tinnitus. Denies difficulty swallowing or oral lesions. PULMONARY: Reports cough with sputum production and mild hemoptysis. CARDIOVASCULAR: Denies chest pain, palpitations, dyspnea on exertion, orthopnea or peripheral edema. GASTROINTESTINAL: Denies diarrhea, constipation, nausea, vomiting, or abdominal pain. GENITOURINARY: Denies dysuria, frequency, urgency or nocturia. NEUROLOGIC: Denies history of epilepsy, CVA, TIA or chronic headaches. MUSCULOSKELETAL: Denies history of joint tenderness/swelling. SKIN: Denies rashes or lesions. PSYCHIATRIC: History of anxiety. ENDOCRINE: Denies history of diabetes or thyroid disorders. Past Medical/Surgical History Medical Problems: (1) Anxiety (2) Bronchiectasis (3) Chronic respiratory failure (4) CKD (chronic kidney disease), stage III (5) COPD (chronic obstructive pulmonary disease) (6) DM type 2 (diabetes mellitus, type 2) (7) Dyslipidemia (8) HTN (hypertension) (9) Hypothyroid (10) Hypoventilation associated with obesity (11) Migraine (12) MRSA (methicillin resistant staph aureus) culture positive (13) Tracheostomy in place Surgical Problems: (1) History of appendectomy (2) History of cholecystectomy (3) History of hysterectomy (4) History of tonsillectomy and adenoidectomy (5) S/P IVC filter Family History FH: COPD (chronic obstructive pulmonary disease) MOTHER Social History Smoking Status: Never Smoker Alcohol Use: none Housing Status: lives with family Current/Historical Medications Scheduled Aspirin (Aspirin Ec), 81 MG PO DAILY Atorvastatin (Atorvastatin Calcium), 20 MG PO DAILY Azithromycin (Zithromax), 250 MG PO UD Bupropion (Wellbutrin Sr), 100 MG PO DAILY Bupropion (Wellbutrin Sr), 200 MG PO HS Desloratadine (Clarinex), 5 MG PO DAILY Ergocalciferol (Vitamin D), 1 CAP PO 3XWK Folic Acid (Folic Acid), 1 MG PO DAILY Insulin Human Lispro (Insulin Humalog Pump ), 1 EA N/A UD Ipratropium-Albuterol (Combivent Respimat), 1 PUFF INH QID Isosorbide Mononitrate Ext Rel (Imdur Ext Rel), 60 MG PO DAILY Levothyroxine Sodium (Levothyroxine Sodium), 200 MCG PO 5XWK Levothyroxine Sodium (Levothyroxine Sodium), 300 MCG PO 2XWK Metoprolol Tartrate (Lopressor), 12.5 MG PO BID Mometasone Furoate (Nasal) (Mometasone Furoate), 2 SPRAYS NA DAILY Montelukast Sod (Montelukast Sodium), 10 MG PO DAILY Multivitamin (Multivitamin), 1 TAB PO DAILY Oxygen (Oxygen), 5 LITERS MS UD Pantoprazole (Pantoprazole Sodium), 40 MG PO DAILY Potassium Chloride (Potassium Chloride Cr), 10 MEQ PO BID Topiramate (Topiramate), 100 MG PO DAILY Topiramate (Topamax), 200 MG PO HS Torsemide (Demadex), 20 MG PO DAILY Scheduled PRN Acetaminophen (Tylenol), 500 MG PO UD PRN for Pain or Fever Albuterol Sulfate (Proair Respiclick), 2 PUFFS INH Q4H PRN for SOB/Wheezing Ipratropium-Albuterol (Duoneb), 1 TREATMENT INH QID PRN for Coughing,WHZ or SOB Lorazepam (Ativan), 1 MG PO Q8 PRN for Anxiety Nitroglycerin (Nitrostat), 0.4 MG UT UD PRN for Chest Pain Tramadol (Ultram), 50 MG PO Q4H PRN for Pain Miscellaneous Medications Clobetasol Propionate (Clobetasol Propionate Cream 0.05%), 1 APPLN EXT Allergies Coded Allergies: Amitriptyline (Verified Allergy, Unknown, `, 02/03/17) Gabapentin (Verified Allergy, Unknown, `, 02/03/17) Metformin (Verified Allergy, Unknown, `, 02/03/17) Penicillins (Verified Allergy, Unknown, `, 02/03/17) Pseudoephedrine (Verified Allergy, Unknown, `, 02/03/17) Tetracycline (Verified Allergy, Unknown, `, 02/03/17) Physical Exam Vital Signs Date Time Temp Pulse Resp B/P Pulse Ox O2 Delivery O2 Flow Rate FiO2 02/03/17 16:23 82 22 130/70 100 02/03/17 15:37 83 20 121/62 100 Trach Collar Nebulizer 02/03/17 14:30 89 18 94 Room Air 02/03/17 13:44 77 02/03/17 13:43 79 22 111/66 95 Room Air 02/03/17 13:38 95 Room Air 02/03/17 13:38 95 Room Air 02/03/17 12:53 93 Room Air 02/03/17 12:03 Trach collar 02/03/17 12:01 36.5 82 22 112/69 93 Trach Collar Pain Rating (0-10): 0 Physical Exam CONSTITUTIONAL: Morbidly obese female, alert and oriented X 3 with positive affect. The patient has an occasional cough. HEENT: Normocephalic, atraumatic. Pupils equal, round and reactive. Ears and nares are clear. No rhinorrhea. OROPHARYNX: No tonsillar hypertrophy or exudates. NECK: Full active range of motion without discomfort. The ostomy site does not appear erythematous or edematous. Tracheostomy does not appear to be occluded. RESPIRATORY: Clear to auscultation bilaterally with no wheezing, crackles, rhonchi or stridor. CARDIOVASCULAR: Regular rate and rhythm with no murmurs, rubs or gallops. GASTROINTESTINAL: Bowel sounds present in all quadrants. Protuberant but soft and nontender to palpation. MUSCULOSKELETAL: Full range of motion of all joints without discomfort. INTEGUMENTARY: No rash or other significant dermatologic conditions noted. NEUROLOGIC: No focal neurologic deficits noted. Medical Decision & Procedures ER Provider Diagnostic Interpretation: My interpretation of an ECG shows a normal sinus rhythm of 79 bpm with a right bundle branch block. Comparison with an ECG dated 01/06/17 does not show any significant changes. My interpretation of a two-view chest x-ray does not show any consolidations or pneumothorax. Radiologist report is as follows: CHEST 2 VIEWS ROUTINE CLINICAL HISTORY: Productive cough dyspnea COMPARISON STUDY: 01/04/2017 FINDINGS: Poor study technically due to patient respiratory and somatic motion. Stable cardiomegaly. Tracheostomy tube in good position. Prominent pulmonary vasculature. No well-defined focal infiltrate is not appreciated within the limitations described. IMPRESSION: 1. Limited study due to patient body habitus and respiratory motion. 2. Cardiomegaly. 3. Probable pulmonary vascular congestion Laboratory Results 02/03/17 13:35 Red Blood Count 4.46, Mean Corpuscular Volume 91.0, Mean Corpuscular Hemoglobin 28.7, Mean Corpuscular Hemoglobin Concent 31.5, Mean Platelet Volume 9.2, Neutrophils (%) (Auto) 68.1, Lymphocytes (%) (Auto) 21.4, Monocytes (%) (Auto) 5.8, Eosinophils (%) (Auto) 3.2, Basophils (%) (Auto) 0.2, Neutrophils # (Auto) 7.11, Lymphocytes # (Auto) 2.23, Monocytes # (Auto) 0.61, Eosinophils # (Auto) 0.33, Basophils # (Auto) 0.02 02/03/17 13:35 Test 02/03/17 13:35 02/03/17 14:55 White Blood Count 10.44 K/uL (4.8-10.8) Red Blood Count 4.46 M/uL (4.2-5.4) Hemoglobin 12.8 g/dL (12.0-16.0) Hematocrit 40.6 % (37-47) Mean Corpuscular Volume 91.0 fL (80-100) Mean Corpuscular Hemoglobin 28.7 pg (25-34) Mean Corpuscular Hemoglobin Concent 31.5 g/dl (32-36) Platelet Count 274 K/uL (130-400) Mean Platelet Volume 9.2 fL (7.4-10.4) Neutrophils (%) (Auto) 68.1 % Lymphocytes (%) (Auto) 21.4 % Monocytes (%) (Auto) 5.8 % Eosinophils (%) (Auto) 3.2 % Basophils (%) (Auto) 0.2 % Neutrophils # (Auto) 7.11 K/uL (1.4-6.5) Lymphocytes # (Auto) 2.23 K/uL (1.2-3.4) Monocytes # (Auto) 0.61 K/uL (0.11-0.59) Eosinophils # (Auto) 0.33 K/uL (0-0.5) Basophils # (Auto) 0.02 K/uL (0-0.2) RDW Standard Deviation 51.0 fL (36.4-46.3) RDW Coefficient of Variation 15.3 % (11.5-14.5) Immature Granulocyte % (Auto) 1.3 % Immature Granulocyte # (Auto) 0.14 K/uL (0.00-0.02) Prothrombin Time 10.8 SECONDS (9.0-12.0) Prothromb Time International Ratio 1.0 (0.9-1.1) Activated Partial Thromboplast Time 23.8 SECONDS (21.0-31.0) Partial Thromboplastin Ratio 0.9 Anion Gap 4.0 mmol/L (3-11) Estimated GFR () 51.6 Estimated GFR (Non- 44.6 BUN/Creatinine Ratio 11.2 (10-20) Calcium Level 9.3 mg/dl (8.5-10.1) Total Bilirubin 0.4 mg/dl (0.2-1) Aspartate Amino Transf (AST/SGOT) 21 U/L (15-37) Alanine Aminotransferase (ALT/SGPT) 29 U/L (12-78) Alkaline Phosphatase 95 U/L (45-117) Total Protein 7.9 gm/dl (6.4-8.2) Albumin 3.1 gm/dl (3.4-5.0) Globulin 4.8 gm/dl (2.5-4.0) Albumin/Globulin Ratio 0.6 (0.9-2) Influenza Type A Antigen Neg for Influ A (NEG) Influenza Type B Antigen Neg for Influ B (NEG) The above labs were reviewed. Influenza screen is negative. CBC and partial renal profile were otherwise grossly normal. Creatinine is 1.3, which is baseline for the patient. Medications Administered Medications (Trade) Dose Ordered Sig/Fatoumata Route Start Time Stop Time Status Last Admin Dose Admin Albuterol/ Ipratropium (Duoneb) 12 ml ONE ONCE INH 02/03/17 14:00 02/03/17 14:01 DC 02/03/17 14:00 12 ML Procedure The patient was administered an hour-long DuoNeb treatment with significant relief of her cough. ED Course Patient history and physical exam were performed. Nurse's notes were reviewed. Vital signs were reviewed, showing an O2 saturation of 93% on room air in triage. On my exam, O2 saturation was 96% the patient is currently afebrile and normotensive. She is not tachycardic. She did have a frequent cough. Chest x-ray did not show any acute consolidations or infiltrates. Labs were otherwise unremarkable. Review of the patient's last hospitalization sure that she tested positive for MRSA on nasal swab. Her sputum cultures grew staph aureus with resistance to clindamycin and erythromycin. At this point, the patient was seen and evaluated by Dr. Parks, ED attending physician, performed an independent evaluation, agreed with plan of care, and suggested consultation with Chuck Malin PA-C. Given her prior history of MRSA, he suggested treatment with Zyvox and Medrol dosepak. His office will call in this prescription in case they need prior authorization. The patient was instructed to continue with her home nebulizer every 4 hours. The patient will call Anthony's office tomorrow for an update on her symptoms to determine follow-up schedule. The patient was instructed to return to the emergency department for any progressively worsening symptoms. The patient was happy with plan of care, and voiced understanding of all discharge instructions. Impression Primary Impression: COPD with acute lower respiratory infection Additional Impression: Tracheostomy present Departure Information Dispostion Home / Self-Care Condition GOOD Referrals Chuck Malin PA-C Forms HOME CARE DOCUMENTATION FORM, IMPORTANT VISIT INFORMATION Patient Instructions My [facility] Additional Instructions Your medications will be called into your pharmacy by Chuck Malin PA-C. Continue with your home nebulizer treatments. Call Chuck's office tomorrow morning for an update, and they will reschedule your appointment. Return to the emergency department for any progressively worsening symptoms, developing fever or significantly worsening shortness of breath. Problem Qualifiers
== END 2017-02-03 16:24 | disposition home or self-care (01) ==
LOC: C.EDB 11:57
DX: J44.0 Chronic obstructive pulmonary disease with (acute) lower respiratory infection (principal); Z93.0 Tracheostomy status; Z87.01 Personal history of pneumonia (recurrent); F41.9 Anxiety disorder, unspecified; N18.3 Chronic kidney disease, stage 3 (moderate); I12.9 Hypertensive chronic kidney disease with stage 1 through stage 4 chronic kidney disease, or unspecified chronic kidney disease; E11.9 Type 2 diabetes mellitus without complications; E78.5 Hyperlipidemia, unspecified; E03.9 Hypothyroidism, unspecified; E66.2 Morbid (severe) obesity with alveolar hypoventilation; Z79.899 Other long term (current) drug therapy; Z79.82 Long term (current) use of aspirin; Z79.4 Long term (current) use of insulin

== ENCOUNTER 2017-03-02 07:22 | Day surgery (SDC) | payer OTHER ==
[~2017-03-02] VITALS: Ht 157.5 cm; Wt 172.0 kg
[2017-03-02] VITALS (16 sets, daily range): BP systolic 106–242; BP diastolic 45–120; PULSE 79–94; TEMP 36.7–36.9; O2SAT 90–99; Ht 157.5 cm; Wt 172.0 kg
--- NOTE | 2017-03-02 06:51 | History and Physical ---
History & Physical Date Mar 02, 2017. Chief Complaint Tracheitis with associated hemoptysis History of Present Illness The patient is a 61 year old female with complaints of Tracheitis with associated hemoptysis 61-year-old morbidly obese female with chronic respiratory insufficiency/failure : 1. Hemoptysis: Patient has chronic Christophe/metal tracheostomy size [address] as well as history of MRSA tracheitis. she has responded well to steroids as well as linezolid therapy. At this time I would like to perform bronchoscopy for further evaluation and understanding of the patient's complex airway. 2. Chronic respiratory insufficiency/failure: Patient has chronic history of respiratory insufficiency requiring tracheostomy. This is most likely combination of severe RASHAAD/obesity hypoventilation syndrome possible underlying lung disease. Patient will continue on her current oxygen support as she still would not like to initiate mechanical ventilation. 3. COPD: We have no definitive diagnosis of COPD as I have no pulmonary function test. At this time will continue patient on previous medical regimen with Combivent, Flovent and QVAR 40. 4. Yeast infection: Fluconazole 150 milligrams x1 Past Medical/Surgical History Medical Problems: (1) Anxiety (2) Bronchiectasis (3) Chronic respiratory failure (4) CKD (chronic kidney disease), stage III (5) COPD (chronic obstructive pulmonary disease) (6) DM type 2 (diabetes mellitus, type 2) (7) Dyslipidemia (8) HTN (hypertension) (9) Hypothyroid (10) Hypoventilation associated with obesity (11) Migraine (12) MRSA (methicillin resistant staph aureus) culture positive (13) Tracheostomy in place Surgical Problems: (1) History of appendectomy (2) History of cholecystectomy (3) History of hysterectomy (4) History of tonsillectomy and adenoidectomy (5) S/P IVC filter Additional History Hepatic Disease: No Endocrine Disorder: Yes Kidney Disease: No Hypertension: Yes Heart Disease: No Bleeding Tendencies: Yes (hemptysis) Infectious Diseases: No Allergies Coded Allergies: Amitriptyline (Verified Allergy, Unknown, `, 02/03/17) Gabapentin (Verified Allergy, Unknown, `, 02/03/17) Metformin (Verified Allergy, Unknown, `, 02/03/17) Penicillins (Verified Allergy, Unknown, `, 02/03/17) Pseudoephedrine (Verified Allergy, Unknown, `, 02/03/17) Tetracycline (Verified Allergy, Unknown, `, 02/03/17) Home Medications Scheduled Aspirin (Aspirin Ec), 81 MG PO DAILY Atorvastatin (Atorvastatin Calcium), 20 MG PO DAILY Azithromycin (Zithromax), 250 MG PO UD Bupropion (Wellbutrin Sr), 100 MG PO DAILY Bupropion (Wellbutrin Sr), 200 MG PO HS Desloratadine (Clarinex), 5 MG PO DAILY Ergocalciferol (Vitamin D), 1 CAP PO 3XWK Folic Acid (Folic Acid), 1 MG PO DAILY Insulin Human Lispro (Insulin Humalog Pump ), 1 EA N/A UD Ipratropium-Albuterol (Combivent Respimat), 1 PUFF INH QID Isosorbide Mononitrate Ext Rel (Imdur Ext Rel), 60 MG PO DAILY Levothyroxine Sodium (Levothyroxine Sodium), 200 MCG PO 5XWK Levothyroxine Sodium (Levothyroxine Sodium), 300 MCG PO 2XWK Metoprolol Tartrate (Lopressor), 12.5 MG PO BID Mometasone Furoate (Nasal) (Mometasone Furoate), 2 SPRAYS NA DAILY Montelukast Sod (Montelukast Sodium), 10 MG PO DAILY Multivitamin (Multivitamin), 1 TAB PO DAILY Oxygen (Oxygen), 5 LITERS MS UD Pantoprazole (Pantoprazole Sodium), 40 MG PO DAILY Potassium Chloride (Potassium Chloride Cr), 10 MEQ PO BID Topiramate (Topiramate), 100 MG PO DAILY Topiramate (Topamax), 200 MG PO HS Torsemide (Demadex), 20 MG PO DAILY Scheduled PRN Acetaminophen (Tylenol), 500 MG PO UD PRN for Pain or Fever Albuterol Sulfate (Proair Respiclick), 2 PUFFS INH Q4H PRN for SOB/Wheezing Ipratropium-Albuterol (Duoneb), 1 TREATMENT INH QID PRN for Coughing,WHZ or SOB Lorazepam (Ativan), 1 MG PO Q8 PRN for Anxiety Nitroglycerin (Nitrostat), 0.4 MG UT UD PRN for Chest Pain Tramadol (Ultram), 50 MG PO Q4H PRN for Pain Miscellaneous Medications Clobetasol Propionate (Clobetasol Propionate Cream 0.05%), 1 APPLN EXT Physical Examination Skin: warm/dry, no rash Eyes: normal inspection, EOMI, sclerae normal ENT: normal ENT inspection, pharynx normal Head: normocephalic, atraumatic Neck: supple, no adenopathy, trachea midline Respiratory/Chest: lungs clear, normal breath sounds, no respiratory distress Cardiovascular: regular rate, rhythm, no edema, no murmur Abdomen / GI: normal bowel sounds, non tender Back: normal inspection Extremities: normal inspection, normal range of motion Neurologic/Psych: no motor/sensory deficits, alert, normal reflexes, oriented x 3 ASA Classification: ASA Class IV Plan of Treatment Bronchoscopy with BAL
[~2017-03-02 07:22] MED LIST changes: +AZIT-60 PO; -AZIT250T5 PO; -GUAISYP5 PO; -LVQ750 PO; -MOME200A INH; +PANT40TA2 PO; -PRD20 PO; -PRT/40 PO
[2017-03-02] MEDS ORDERED: LIDOCAINE HCL 2% LOCAL 50ML VIAL INFIL ONE (07:23)
[2017-03-02] MEDS ORDERED: FENTANYL CITRATE INJ 50 MCG/1 ML 2 ML VIAL IV ONE ×2 (07:23→10:00)
[2017-03-02] MEDS ORDERED: MIDAZOLAM HCL 5 MG/ML 1 ML VIAL IV ONE ×2 (07:23→10:00)
[2017-03-02] MEDS ORDERED: LIDOCAINE 4% INH SOLN 4 ML BTL ONE (07:23)
[2017-03-02] MEDS ORDERED: NURSING VERBAL MED ORDER ONE (10:00)
--- NOTE | 2017-03-02 11:04 | Discharge Instructions ---
Discharge Instructions Date of Service Mar 02, 2017. Admission Reason for Admission: Hemophysis; Bonchiectasis Discharge Discharge Diagnosis / Problem: bronchoscopy with bronchial alveolar lavage in the right lower lobe Discharge Goals Goal(s): Diagnostic testing Activity Recommendations Activity Limitations: resume your previous activity . Current Hospital Diet Patient's current hospital diet: Discharge Diet Recommended Diet: Regular Diet Procedures Procedures Performed: Bronchoscopy, conscious sedation, bronchial washing of the right lower lobe Pending Studies Studies pending at discharge: yes List of pending studies: Microbiologic, fungal and viral analysis of the right lower lobe bronchial washing Medical Emergencies . Who to Call and When: Medical Emergencies: If at any time you feel your situation is an emergency, please call 911 immediately. . Non-Emergent Contact Non-Emergency issues call your: Picc Nurse Call Non-Emergent contact if: temperature is above 101.5 . . "Provider Documentation" section prepared by Sruya Go. VTE Core Measure Inpt VTE Proph given/why not?: Treatment not indicated
--- NOTE | 2017-03-02 14:00 | Procedure Note ---
Post-Moderate Sedation Plan General Date of Moderate Sedation Mar 02, 2017. Vital Signs: Vital Signs Past 12 Hours Date Time Temp Pulse Resp B/P Pulse Ox O2 Delivery O2 Flow Rate FiO2 03/02/17 13:56 Trach Collar 03/02/17 11:56 36.7 79 22 119/56 92 Room Air 03/02/17 11:37 36.9 81 18 113/51 92 03/02/17 11:18 93 Room Air 03/02/17 11:11 22 106/74 96 Trach Collar 35 03/02/17 10:35 83 22 107/66 96 Trach Collar 40 03/02/17 10:20 36.7 87 20 117/51 97 Trach Collar 40 03/02/17 10:03 87 21 115/59 95 Trach Collar 50 03/02/17 09:55 86 24 148/89 98 Trach Collar 15.0 50 Mask 03/02/17 09:50 86 20 120/81 96 Trach Collar 15.0 50 Mask 03/02/17 09:45 94 22 133/87 96 Trach Collar 15.0 50 Mask 03/02/17 09:40 90 22 151/78 94 Trach Collar 10.0 50 Mask 03/02/17 09:35 86 20 131/85 99 Trach Collar 8.0 Mask 03/02/17 09:30 83 24 154/81 98 Trach Collar 8.0 Mask 03/02/17 09:25 82 24 153/84 98 Trach Collar 8.0 Mask 03/02/17 09:05 82 22 145/85 94 Room Air 03/02/17 07:55 36.9 84 28 242/120 93 Room Air 153/45 Review - Discharge Plan Post Moderate Sedation Plan: On clinical assessment, the patient appears to have tolerated the conscious sedation without complications. Patient is recovering as anticipated. Patient will continue to be monitored by nursing and may be discharged when conscious sedation discharge criteria are met.
--- NOTE | 2017-03-02 14:08 | Bronchoscopy Procedure Note ---
Bronchoscopy Procedure Note Procedure: Bronchoscopy, conscious sedation, bronchial alveolar washing of the right lower lobe Consent: Obtained through the patient placed into the chart Preprocedural diagnosis: Hemoptysis, tracheitis, chronic cough Postprocedural diagnosis: Granuloma, tracheitis, chronic cough Start time: 928 End time: 946 Total time: 18 minutes Analgesia: 2% liquid lidocaine: Via nebulizer 4% gel lidocaine: Via right naris 2% liquid lidocaine: Via bronchoscopy Sedation: Versed IV: 3mg Fentanyl IV: 75 g Procedure: The Olympus video bronchoscope was used for this procedure Right naris/posterior naris: Anatomically within normal limits Posterior oropharynx: Severe redundant tissue all the way down to the epiglottis Glottis: Anatomically within normal limits Vocal cords: Proper abduction and abduction, anatomically within normal limits Subglottis: Anatomically within normal limits Trachea: Between the third and fourth tracheal rings there was a metal tracheostomy in place, the ostomy hole was clean no signs of active infection proximal to the ostomy there was some granulomatous tissue with minimal oozing blood appreciated Below the site of the tracheostomy there was diffuse membranous changes along the trachea greatest at the gravity dependent regions Distal to the tracheostomy tube to approximately 2 cm from the german there was 70% EDAC German: Small granuloma in appreciated at the proximal portion of the german Right bronchial tree: Right mainstem bronchus: 70% EDAC Right upper lobe: Anatomically within normal limits Bronchus intermedius: 80% EDAC Right middle lobe: Anatomically within normal limits Right lower lobe: Anatomically within normal limits Findings: EDAC (excessive dynamic airway collapse) Left bronchial tree: Left mainstem bronchus: 70% EDAC Left upper lobe: Anatomically within normal limits Lingula: Anatomically within normal limits Left lower lobe: Anatomically within normal limits Findings: No significant findings noted Bronchial washing lavage: Right lower lobe Complications: None Follow-up: [facility]
[2017-03-26 12:27] LABS: HERPES SIMPLEX CULT SOURCE OTHER-BAL RLL; HERPES SIMPLEX VIRUS CULT NOT ISOLATED (NOT ISOLATED)
== END 2017-03-02 12:08 | disposition home or self-care (01) ==
LOC: C.ACU 07:22
PROVIDERS: ATTEND Internal Medicine Critical Care Medicine
DX: J04.10 Acute tracheitis without obstruction (principal); R05 Cough; J95.09 Other tracheostomy complication; J84.10 Pulmonary fibrosis, unspecified; Z93.0 Tracheostomy status; Z79.899 Other long term (current) drug therapy

== ENCOUNTER 2018-01-10 05:37 | Emergency (ER) | payer OTHER ==
[~2018-01-10] VITALS: Ht 157.5 cm; Wt 189.7 kg
[~2018-01-10 05:37] MED LIST changes: +LEVO1TAB33 PO; -LPT/20 PO; +LPT20 PO
[2018-01-10 05:47] VITALS: TEMP 36.8; O2SAT 100; Ht 157.5 cm; Wt 189.7 kg
--- NOTE | 2018-01-10 05:56 | EMERGENCY ROOM VISIT NOTE ---
History First contact with patient: 05:46 Chief Complaint: SHORTNESS OF BREATH Stated Complaint: SHORT OF BREATH History of Present Illness The patient is a 62 year old female who presents to the Emergency Room for evaluation of shortness of breath. Notes increased SHOB over the evening associated iwth cough. Was ambulating and shob too extreme to walk thus EMS called. Notes right lower anterior rib pain s/p coughing. States this has occurred with coughing. Denies other cp, syncope, increased leg swelling ( chronic from obesity), headache, neck pain, runny nose, body aches, fevers, chills, nausea, vomiting nor other symptoms. Nebulizer en route with vast improvement in symptoms. No recent abx. Exertion makes worse, rest makes better. Similar to previous COPD exacerbations. Denies other concerns today. Denies history of DVT nor PE. She is currently on Levaquin and Prednisone over last few days for COPD exacerbation and this is minimal compared to a few days ago. Review of Systems See HPI for pertinent positives & negatives. A total of 10 systems reviewed and were otherwise negative. Past Medical/Surgical History Medical Problems: (1) Anxiety (2) Bronchiectasis (3) Chronic respiratory failure (4) CKD (chronic kidney disease), stage III (5) COPD (chronic obstructive pulmonary disease) (6) DM type 2 (diabetes mellitus, type 2) (7) Dyslipidemia (8) HTN (hypertension) (9) Hypothyroid (10) Hypoventilation associated with obesity (11) Migraine (12) MRSA (methicillin resistant staph aureus) culture positive (13) Tracheostomy in place Surgical Problems: (1) History of appendectomy (2) History of cholecystectomy (3) History of hysterectomy (4) History of tonsillectomy and adenoidectomy (5) S/P IVC filter Family History FH: COPD (chronic obstructive pulmonary disease) MOTHER Social History Smoking Status: Never Smoker Alcohol Use: none Drug Use: none Marital Status: Housing Status: lives with family Occupation Status: disabled Current/Historical Medications Scheduled Atorvastatin (Lipitor), 20 MG PO DAILY Bupropion (Wellbutrin Sr), 300 MG PO DAILY Clotrimazole W/ Betamethasone (Lotrisone), 1 APPLN TOP AMPM Desloratadine (Clarinex), 5 MG PO DAILY Ergocalciferol (Vitamin D 73011 Unit), 1 TAB PO 3XWK Folic Acid (Folic Acid), 1 MG PO DAILY Home O2 Therapy (Oxygen), 5 LITERS MS UD Insulin Glargine (Lantus), 75 UNITS SC AMPM Insulin Human Lispro (Insulin Humalog Pump ), 1 EA N/A UD Ipratropium-Albuterol (Combivent Respimat), 1 PUFF INH QID Isosorbide Mononitrate Ext Rel (Imdur Ext Rel), 60 MG PO DAILY Ketoconazole (Ketoconazole), 1 APPLN TOP BID Levofloxacin (Levaquin), 500 MG PO DAILY Levothyroxine Sodium (Levothyroxine Sodium), 200 MCG PO 5XWK Levothyroxine Sodium (Levothyroxine Sodium), 300 MCG PO 2XWK Metoprolol Tartrate (Lopressor), 12.5 MG PO BID Montelukast Sod (Montelukast Sodium), 10 MG PO DAILY Multivitamin (Multivitamin), 1 TAB PO DAILY Pantoprazole (Pantoprazole Sodium), 40 MG PO DAILY Potassium Chloride (Potassium Chloride Cr), 10 MEQ PO BID Topiramate (Topiramate), 100 MG PO QAM Topiramate (Topamax), 200 MG PO HS Torsemide (Demadex), 20 MG PO DAILY Triamcinolone Acet (Triamcinolone Acetonide), 1 APPLN TOP BID Scheduled PRN Acetaminophen (Tylenol), 500 MG PO UD PRN for Pain or Fever Albuterol Sulfate (Proair Respiclick), 2 PUFFS INH Q4H PRN for SOB/Wheezing Ipratropium-Albuterol (Duoneb), 1 TREATMENT INH QID PRN for Coughing,WHZ or SOB Lorazepam (Ativan), 1 MG PO Q8 PRN for anxiety/agitation or sleep Nitroglycerin (Nitrostat), 0.4 MG UT UD PRN for Chest Pain Tramadol (Ultram), 50 MG PO BID PRN for Pain Physical Exam Vital Signs Date Time Temp Pulse Resp B/P (MAP) Pulse Ox O2 Delivery O2 Flow Rate FiO2 01/10/18 07:30 95 22 141/71 95 01/10/18 06:15 86 18 96 Room Air 01/10/18 05:54 90 01/10/18 05:47 36.8 91 20 149/75 100 Mask 5.0 01/10/18 05:47 100 Mask 5.0 01/10/18 05:47 100 Mask 5.0 Physical Exam GENERAL: Patient is chronically unwell appearing and in no acute distress. She is morbidly obese HEENT: No acute trauma, normocephalic atraumatic, mucous membranes moist, no nasal congestion, no scleral icterus. NECK: Midline tracheostomy, no stridor, trachea is midline. LUNGS: Mild wheezing bilaterally. Equal bilaterally. No wheeze, no rhonchi. HEART: Regular rate and rhythm. No murmurs, rubs, gallops appreciated. ABDOMEN: Soft, nontender, bowel sounds positive, no masses appreciated, no peritonitis. BACK: No midline tenderness, no CVA tenderness EXTREMITIES: Morbidly obese legs with some mild pitting edema. Similar size bilaterally. No calf TTP/Pain nor pain with ROM ankle. Sensation/pulses intact all extremities. No cyanosis, no edema. NEUROLOGIC: Alert and oriented, no acute motor or sensory deficits, no focal weakness, cranial nerves grossly intact. SKIN: No rash, no jaundice, no diaphoresis. Medical Decision & Procedures Laboratory Results 01/10/18 05:50 Red Blood Count 4.57, Mean Corpuscular Volume 89.9, Mean Corpuscular Hemoglobin 28.2, Mean Corpuscular Hemoglobin Concent 31.4, Mean Platelet Volume 9.0, Neutrophils (%) (Auto) 71.8, Lymphocytes (%) (Auto) 16.4, Monocytes (%) (Auto) 8.9, Eosinophils (%) (Auto) 1.0, Basophils (%) (Auto) 0.3, Neutrophils # (Auto) 8.29, Lymphocytes # (Auto) 1.90, Monocytes # (Auto) 1.03, Eosinophils # (Auto) 0.12, Basophils # (Auto) 0.03 01/10/18 05:50 Test 01/10/18 05:50 White Blood Count 11.56 K/uL (4.8-10.8) Red Blood Count 4.57 M/uL (4.2-5.4) Hemoglobin 12.9 g/dL (12.0-16.0) Hematocrit 41.1 % (37-47) Mean Corpuscular Volume 89.9 fL (80-100) Mean Corpuscular Hemoglobin 28.2 pg (25-34) Mean Corpuscular Hemoglobin Concent 31.4 g/dl (32-36) Platelet Count 284 K/uL (130-400) Mean Platelet Volume 9.0 fL (7.4-10.4) Neutrophils (%) (Auto) 71.8 % Lymphocytes (%) (Auto) 16.4 % Monocytes (%) (Auto) 8.9 % Eosinophils (%) (Auto) 1.0 % Basophils (%) (Auto) 0.3 % Neutrophils # (Auto) 8.29 K/uL (1.4-6.5) Lymphocytes # (Auto) 1.90 K/uL (1.2-3.4) Monocytes # (Auto) 1.03 K/uL (0.11-0.59) Eosinophils # (Auto) 0.12 K/uL (0-0.5) Basophils # (Auto) 0.03 K/uL (0-0.2) RDW Standard Deviation 54.5 fL (36.4-46.3) RDW Coefficient of Variation 16.7 % (11.5-14.5) Immature Granulocyte % (Auto) 1.6 % Immature Granulocyte # (Auto) 0.19 K/uL (0.00-0.02) Anion Gap 6.0 mmol/L (3-11) Est Creatinine Clear Calc Drug Dose 79.1 ml/min Estimated GFR () 53.8 Estimated GFR (Non- 46.4 BUN/Creatinine Ratio 15.2 (10-20) Calcium Level 9.6 mg/dl (8.5-10.1) Magnesium Level 2.1 mg/dl (1.8-2.4) Troponin I < 0.015 ng/ml (0-0.045) Pro-B-Type Natriuretic Peptide 88 pg/ml (0-900) Medications Administered Medications (Trade) Dose Ordered Sig/Fatoumata Route Start Time Stop Time Status Last Admin Dose Admin Albuterol/ Ipratropium (Duoneb) 12 ml ONE ONCE INH 01/10/18 06:00 01/10/18 06:01 DC 01/10/18 06:15 12 ML Medical Decision Differential: Infectious, Reactive Airway Disease, Pneumonia, Pneumothorax, COPD , CHF, ACS, Pulmonary Embolism, MSK, GI, Dissection, amongst other etiologies entertained. 62 yr old female arrives following episode of SHOB while ambulating down [address] at home. Associated with some right anterior chest pain which started after bout of coughing. Clearly TTP over right anterior rib in single spot that is hurting her nowhere else. She received neb [employer]IN[employer] and is in no distress breathing well and comfortable. She is not hypoxic, tachycardic, nor hypotensive. She has no pleuritic chest pain and denies any increased swelling in her legs. She has no hallmark of PE/DVT though truth is I do not feel that I would be able to rule out either given her morbid obesity. With clear point TTP and pain starting post coughing fit I suspect this is MSK pain right anterior chest. She was feelign well already but given her history I did give her hour neb to watch her which she states she is feeling well. She is smiling, breathing comfortably and in no distress. Her symptoms started while walking down [address] which is not surprising given she is currently being treated as outpatient with COPD exacerbation. I do not feel this is ACS and there is no evidence of acute CHF nor acute pneumonia/infection. She is stable breathing comfortably and wants to go home. Aware risks and that she can return at any time. She with be with her daughter at their home and I advised calling 911 if any worsening or other concerns. The patient is well hydrated, happy, breathing comfortably and in no distress. They are not septic and are stable at discharge. Medication Reconcilliation Current Medication List: was personally reviewed by me Blood Pressure Screening Patient's blood pressure: Normal blood pressure Impression Primary Impression: Shortness of breath Additional Impression: Rib pain on right side Departure Information Dispostion Home / Self-Care Condition GOOD Referrals Rowan Leos D.O. (PCP) Patient Instructions My [facility] Additional Instructions Monitor you breathing at home. If you feel you are having worsening shortness of breath, chest pain, passing out, leg swelling, fevers or other concerns return for further evaluation. Follow up with your primary care provider in next 1 to 2 days. Continue your current medications and make sure you are using your Nebulizer regularly. Problem Qualifiers
[2018-01-10] MEDS ORDERED: ALBUT/IPRATROP 3MG/0.5MG NEB 3 ML VIAL INH ONE (06:00)
[2018-01-10 06:12] LABS: BASO % 0.3 %; BASO ABS # 0.03 K/uL (0-0.2); EOS ABS # 0.12 K/uL (0-0.5); HEMATOCRIT 41.1 % (37-47); HEMOGLOBIN 12.9 g/dL (12.0-16.0); IG# 0.19 K/uL (0.00-0.02); LYMPH % 16.4 %; MEAN CELL VOLUME 89.9 fL (80-100); MEAN CORPUSCULAR HEMOGLOBIN 28.2 pg (25-34); MEAN CORPUSCULAR HGB CONC 31.4 g/dl (32-36); MONO % 8.9 %; MONO ABS # 1.03 K/uL (0.11-0.59); NEUT % 71.8 %; NEUT ABS # 8.29 K/uL (1.4-6.5); PLATELET COUNT 284 K/uL (130-400); RED CELL DISTRIBUTION WIDTH CV 16.7 % (11.5-14.5); RED CELL DISTRIBUTION WIDTH SD 54.5 fL (36.4-46.3); WHITE BLOOD COUNT 11.56 K/uL (4.8-10.8)
[2018-01-10 06:15] VITALS: PULSE 86; O2SAT 96
[2018-01-10] MEDS ORDERED: INSDGI SC (06:19)
[2018-01-10] MEDS ORDERED: ERGO500011 PO (06:23)
[2018-01-10] MEDS ORDERED: CLOTCRE TOP (06:26)
[2018-01-10] MEDS ORDERED: TRMCR515 TOP (06:29)
[2018-01-10] MEDS ORDERED: NZRCR TOP (06:29)
[2018-01-10 06:32] LABS: BLOOD UREA NITROGEN 19 mg/dl (7-18); CALCIUM 9.6 mg/dl (8.5-10.1); CARBON DIOXIDE 28 mmol/L (21-32); CREATININE 1.25 mg/dl (0.60-1.20); GLUCOSE 115 mg/dl (70-99); POTASSIUM 3.8 mmol/L (3.5-5.1); SODIUM 140 mmol/L (136-145)
--- NOTE | 2018-01-10 06:33 | DIAGNOSTIC IMAGING REPORT ---
CHEST ONE VIEW PORTABLE CLINICAL HISTORY: Shortness of breath. COMPARISON STUDY: Chest radiograph February 03, 2017. FINDINGS: Tracheostomy tube is in place. There is no pneumothorax or pleural effusion. There is no evidence for pulmonary edema. No consolidation. Cardiomegaly is unchanged. IMPRESSION: No acute cardiopulmonary findings. Stable cardiomegaly. No change in appearance of the chest. Electronically signed by: Toni Ohara M.D. 01/10/2018 6:31 AM Dictated Date/Time: 01/10/2018 6:28 AM
[2018-01-10 07:30] VITALS: BP 141/71; PULSE 95; O2SAT 95
== END 2018-01-10 07:31 | disposition home or self-care (01) ==
LOC: EDBD 05:37 → C.EDA 05:38
DX: R06.02 Shortness of breath (principal); R07.81 Pleurodynia; F41.9 Anxiety disorder, unspecified; N18.3 Chronic kidney disease, stage 3 (moderate); J44.9 Chronic obstructive pulmonary disease, unspecified; E11.9 Type 2 diabetes mellitus without complications; E78.5 Hyperlipidemia, unspecified; I10 Essential (primary) hypertension; E03.9 Hypothyroidism, unspecified; Z79.4 Long term (current) use of insulin

== ENCOUNTER 2018-01-14 23:59 | Inpatient (IN) | payer OTHER ==
[~2018-01-14] VITALS: Ht 157.5 cm; Wt 159.5 kg
[~2018-01-14 23:59] MED LIST changes: -ASPI81TA28 PO; -AZIT-60 PO; -CLBCRM30 EXT; +CLOTCRE TOP; +ERGO500011 PO; +INSDGI SC; -MOME6000; +NZRCR TOP; +TRMCR515 TOP; -VTMD PO
[2018-01-15] VITALS (20 sets, daily range): BP systolic 97–152; BP diastolic 54–84; PULSE 67–107; TEMP 36.3–38; O2SAT 91–99; BMI 76.2
[2018-01-15] MEDS ORDERED: MAGNESIUM SULFATE 1GM / D5W 1 GM BAG ONE (00:06)
[2018-01-15] MEDS ORDERED: METHYLPREDNISOLONE 125 MG VIAL ONE (00:06)
[2018-01-15] MEDS ORDERED: ALBUT/IPRATROP 3MG/0.5MG NEB 3 ML VIAL ONE ×2 (00:06→00:23)
--- NOTE | 2018-01-15 00:14 | EMERGENCY ROOM VISIT NOTE ---
History Report prepared by Hipolito: April Mcgarry Under the Supervision of: Steven LopezO. 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 Per EMS, the patient was having a difficult time breathing and they gave her albuterol and her oxygen levels temporarily improved. Patient continued to have increased work of breathing. Patient is noted to have a trach. They also note she has rhonchi on her left lung. She denies any chest pain, neck pain, back pain, or abdominal pain. HPI limited due to patient's condition. 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 ROS limited due to patient's condition. Past Medical & Surgical Medical Problems: (1) Anxiety (2) Bronchiectasis (3) Chronic respiratory failure (4) CKD (chronic kidney disease), stage III (5) COPD (chronic obstructive pulmonary disease) (6) DM type 2 (diabetes mellitus, type 2) (7) Dyslipidemia (8) HTN (hypertension) (9) Hypothyroid (10) Hypoventilation associated with obesity (11) Migraine (12) MRSA (methicillin resistant staph aureus) culture positive (13) Tracheostomy in place Surgical Problems: (1) History of appendectomy (2) History of cholecystectomy (3) History of hysterectomy (4) History of tonsillectomy and adenoidectomy (5) S/P IVC filter Family History FH: COPD (chronic obstructive pulmonary disease) MOTHER Social History Smoking Status: Never Smoker Alcohol Use: none Drug Use: none Marital Status: Housing Status: lives with family Occupation Status: disabled Current/Historical Medications Scheduled Aspirin (Aspir-81), 1 TAB PO DAILY Atorvastatin (Lipitor), 20 MG PO DAILY Bupropion (Wellbutrin Sr), 300 MG PO DAILY Clotrimazole W/ Betamethasone (Lotrisone), 1 APPLN TOP AMPM Desloratadine (Clarinex), 5 MG PO DAILY Ergocalciferol (Vitamin D 05719 Unit), 1 TAB PO 3XWK Folic Acid (Folic Acid), 1 MG PO DAILY Home O2 Therapy (Oxygen), 5 LITERS MS UD Insulin Glargine (Lantus), 75 UNITS SC AMPM Insulin Human Lispro (Insulin Humalog Pump ), 1 EA N/A UD Ipratropium-Albuterol (Combivent Respimat), 1 PUFF INH QID Isosorbide Mononitrate Ext Rel (Imdur Ext Rel), 60 MG PO DAILY Ketoconazole (Ketoconazole), 1 APPLN TOP BID Levothyroxine Sodium (Levothyroxine Sodium), 200 MCG PO 5XWK Levothyroxine Sodium (Levothyroxine Sodium), 300 MCG PO 2XWK Metoprolol Tartrate (Lopressor), 12.5 MG PO BID Montelukast Sod (Montelukast Sodium), 10 MG PO DAILY Multivitamin (Multivitamin), 1 TAB PO DAILY Pantoprazole (Pantoprazole Sodium), 40 MG PO DAILY Potassium Chloride (Potassium Chloride Cr), 10 MEQ PO BID Topiramate (Topiramate), 100 MG PO QAM Topiramate (Topamax), 200 MG PO HS Torsemide (Demadex), 20 MG PO DAILY Triamcinolone Acet (Triamcinolone Acetonide), 1 APPLN TOP BID Scheduled PRN Albuterol Sulfate (Proair Respiclick), 2 PUFFS INH Q4H PRN for SOB/Wheezing Ipratropium-Albuterol (Duoneb), 1 TREATMENT INH QID PRN for Coughing,WHZ or SOB Lorazepam (Ativan), 1 MG PO Q8 PRN for anxiety/agitation or sleep Nitroglycerin (Nitrostat), 0.4 MG UT UD PRN for Chest Pain Tramadol (Ultram), 50 MG PO BID PRN for Pain Allergies Coded Allergies: Amitriptyline (Verified Allergy, Unknown, `, 01/15/18) Gabapentin (Verified Allergy, Unknown, `, 01/15/18) Metformin (Verified Allergy, Unknown, `, 01/15/18) Penicillins (Verified Allergy, Unknown, `, 01/15/18) Pseudoephedrine (Verified Allergy, Unknown, `, 01/15/18) Tetracycline (Verified Allergy, Unknown, `, 2/25/18) Physical Exam Vital Signs Date Time Temp Pulse Resp B/P (MAP) Pulse Ox O2 Delivery O2 Flow Rate FiO2 01/15/18 01:51 91 26 95 BiPAP 35 01/15/18 01:46 112/76 01/15/18 01:36 92 34 96 BiPAP 35 01/15/18 01:31 93 31 107/63 94 BiPAP 35 01/15/18 01:16 92 35 125/75 96 BiPAP 35 01/15/18 01:11 95 28 96 BiPAP 35 01/15/18 00:56 95 31 95 BiPAP 35 01/15/18 00:51 125/70 01/15/18 00:41 101 37 96 BiPAP 35 01/15/18 00:36 98 29 92 BiPAP 35 01/15/18 00:21 100 33 93 BiPAP 35 01/15/18 00:20 95 92 35 01/15/18 00:16 138/85 01/15/18 00:14 101 34 97 BiPAP 35 01/15/18 00:10 188/110 01/15/18 00:07 107 01/15/18 00:03 96 Nebulizer 15.0 01/15/18 00:03 159/144 01/14/18 23:59 37.2 106 42 159/144 64 Room Air 01/14/18 23:59 65 Room Air 01/14/18 23:59 94 Room Air Physical Exam GENERAL: alert, well nourished, in distress, non-toxic, increased breathing, morbidly obese EYE EXAM: normal conjunctiva, PERRL and EOM's grossly intact OROPHARYNX: no exudate, no erythema, lips, buccal mucosa, and tongue normal and mildly dry mucous membranes NECK: supple, no nuchal rigidity, no adenopathy, non-tender. Trach midline, no discharge or bleeding LUNGS: Severely diminished, no wheezes, rhonchi or rales, markedly increased work of breathing and tachypneic HEART: no murmurs, S1 normal and S2 normal, tachycardia ABDOMEN: difficult exam due to body habitus, no rebound or guarding, no focal tenderness elicited BACK: Back is symmetrical on inspection and there is no deformity, no midline tenderness, no CVA tenderness. SKIN: no rashes and no bruising UPPER EXTREMITIES: upper extremities are grossly normal. Normal pulses. LOWER EXTREMITIES: No pitting edema. Normal pulses. NEURO EXAM: awake, alert, nods and shakes head to answer questions, unable to perform additional testing due to clinical condition Medical Decision & Procedures ER Provider Diagnostic Interpretation: Radiology results have been interpreted by the radiologist and me and reviewed by me. CHEST X-RAY Severely limited due to body habitus, cardiomegaly noted, trach noted, no definite infiltrate or effusion, no significant change compared to prior. CLINICAL HISTORY: Dyspnea. FINDINGS: 2 AP, portable, upright chest radiographs compared to study dated 01/10/2018. The examination is degraded by portable technique, large body habitus, motion artifact, and patient rotation. A tracheostomy is unchanged in position. The heart is enlarged. Mild pulmonary vascular congestion is suggested. There is bibasilar atelectasis. No large pleural effusion or focal airspace consolidation is seen. No pneumothorax is seen. The skeletal structures are osteopenic. There are healed right-sided rib fracture. IMPRESSION: 1. Degraded examination as above. 2. Cardiomegaly. Mild pulmonary vascular congestion is suggested. 3. No airspace consolidation or large pleural effusion is identified. Electronically signed by: Jasper Hancock M.D. 01/15/2018 12:52 AM Dictated Date/Time: 01/15/2018 12:51 AM Laboratory Results 01/15/18 00:05 Red Blood Count 4.61, Mean Corpuscular Volume 88.3, Mean Corpuscular Hemoglobin 27.8, Mean Corpuscular Hemoglobin Concent 31.4, Mean Platelet Volume 9.1, Neutrophils (%) (Auto) 63.8, Lymphocytes (%) (Auto) 23.0, Monocytes (%) (Auto) 12.0, Eosinophils (%) (Auto) 0.0, Basophils (%) (Auto) 0.2, Neutrophils # (Auto ) 7.15, Lymphocytes # (Auto) 2.58, Monocytes # (Auto) 1.35, Eosinophils # (Auto ) 0.00, Basophils # (Auto) 0.02 01/15/18 00:05 Test 01/15/18 00:05 01/15/18 00:26 01/15/18 00:40 White Blood Count 11.21 K/uL (4.8-10.8) Red Blood Count 4.61 M/uL (4.2-5.4) Hemoglobin 12.8 g/dL (12.0-16.0) Hematocrit 40.7 % (37-47) Mean Corpuscular Volume 88.3 fL (80-100) Mean Corpuscular Hemoglobin 27.8 pg (25-34) Mean Corpuscular Hemoglobin Concent 31.4 g/dl (32-36) Platelet Count 219 K/uL (130-400) Mean Platelet Volume 9.1 fL (7.4-10.4) Neutrophils (%) (Auto) 63.8 % Lymphocytes (%) (Auto) 23.0 % Monocytes (%) (Auto) 12.0 % Eosinophils (%) (Auto) 0.0 % Basophils (%) (Auto) 0.2 % Neutrophils # (Auto) 7.15 K/uL (1.4-6.5) Lymphocytes # (Auto) 2.58 K/uL (1.2-3.4) Monocytes # (Auto) 1.35 K/uL (0.11-0.59) Eosinophils # (Auto) 0.00 K/uL (0-0.5) Basophils # (Auto) 0.02 K/uL (0-0.2) RDW Standard Deviation 52.2 fL (36.4-46.3) RDW Coefficient of Variation 16.1 % (11.5-14.5) Immature Granulocyte % (Auto) 1.0 % Immature Granulocyte # (Auto) 0.11 K/uL (0.00-0.02) Prothrombin Time 10.3 SECONDS (9.0-12.0) Prothromb Time International Ratio 1.0 (0.9-1.1) Estimated GFR () 43.8 Estimated GFR (Non- 37.8 BUN/Creatinine Ratio 10.6 (10-20) Calcium Level 8.5 mg/dl (8.5-10.1) Magnesium Level 2.0 mg/dl (1.8-2.4) Total Bilirubin 0.5 mg/dl (0.2-1) Aspartate Amino Transf (AST/SGOT) 57 U/L (15-37) Alanine Aminotransferase (ALT/SGPT) 60 U/L (12-78) Alkaline Phosphatase 142 U/L (45-117) Troponin I < 0.015 ng/ml (0-0.045) Pro-B-Type Natriuretic Peptide 112 pg/ml (0-900) Total Protein 7.7 gm/dl (6.4-8.2) Albumin 2.9 gm/dl (3.4-5.0) Globulin 4.8 gm/dl (2.5-4.0) Albumin/Globulin Ratio 0.6 (0.9-2) Bedside Hemoglobin 15.0 g/dl (12.0-16.0) Bedside Hematocrit 44 % (37-47) Bedside Sodium 132 mEq/L (135-144) Bedside Potassium 4.3 mEq/L (3.3-5.0) Bedside Chloride 94 mEq/L (101-112) Bedside Total CO2 26 mEq/l (24-31) Anion Gap 18.0 mmol/L (16-25) Bedside Blood Urea Nitrogen 16 mg/dl (7-18) Bedside Creatinine 1.4 mg/dl (0.6-1.3) Bedside Glucose (other) 184 mg/dl (70-99) Bedside Ionized Calcium (Enedelia) 1.23 mmol/l (1.12-1.32) Bedside Blood Gas pH (LAB) 7.27 (7.35-7.45) Bedside Blood Gas pCO2 (LAB) 58 mmHg (35-46) Bedside Blood Gas pO2 (LAB) 69 mmHg (80-95) Bedside Blood Gas HCO3 (LAB) 27 meq/L (19-24) Bedside Blood Gas Total CO2 28 mEq/l (24-31) Bedside Blood Gas Base Excess (LAB) 0.0 meq/L (-9-1.8) Bedside Blood Gas O2 Saturation 91.0 % (90-95) Laboratory results per my review. Medications Administered Medications (Trade) Dose Ordered Sig/[facility] Route Start Time Stop Time Status Last Admin Dose Admin Albuterol/ Ipratropium (Duoneb) 3 ml STK-MED ONCE .ROUTE 01/15/18 00:06 01/15/18 00:07 DC 01/15/18 00:13 3 ML Methylprednisolone Sodium Succinate (Solu-Medrol IV) 125 mg STK-MED ONCE .ROUTE 01/15/18 00:06 01/15/18 00:07 DC 01/15/18 00:12 125 MG Magnesium Sulfate (Magnesium Sulfate) 1 gm STK-MED ONCE .ROUTE 01/15/18 00:06 01/15/18 00:07 DC 01/15/18 00:12 1 GM Albuterol/ Ipratropium (Duoneb) 9 ml STK-MED ONCE .ROUTE 01/15/18 00:23 01/15/18 00:24 DC 01/15/18 00:23 9 ML Cefepime HCl 2000 mg/Dextrose 122 ml @ 200 mls/hr NOW STAT IV 01/15/18 00:23 01/15/18 00:59 DC 01/15/18 00:57 200 MLS/HR Azithromycin 500 mg/Dextrose 255 ml @ 125 mls/hr ONE ONCE IV 01/15/18 00:30 01/15/18 02:32 DC 01/15/18 01:14 125 MLS/HR Vancomycin HCl 2000 mg/Sodium Chloride 540 ml @ 200 mls/hr ONE STAT IV 01/15/18 00:28 01/15/18 03:09 DC 01/15/18 01:14 200 MLS/HR ECG Per My Interpretation Indication: SOB/dyspnea Rate (beats per minute): 95 Rhythm: sinus rhythm Findings: RBBB, no acute ischemic change, other (left axis, normal QTC) Comparison ECG Date: 01/10/2018 Change: no significant change ED Course 0002: The patient was evaluated in room B1. A complete history and physical exam was performed. 0006: Magnesium Sulfate 1 gm Solu-Medrol IV 125 mg Duoneb 3 ml 0015: I discussed the patient's case with her family. Patient beginning to improve here while on BiPAP. 0023: Duoneb 9 ml 0028: Vancomycin HCl 2,000 mg/Sodium Chloride 540 ml @ 200 mls/hr IV 0030: Azithromycin 500 mg/Dextrose 255 @ 125 mls/hr IV 0041: I rechecked the patient at this time. Patient appears improved, heart rate improved, respiratory rate, satting 94%, patient appears more comfortable. 0045: Duoneb 12 ml INH 0108: I rechecked the patient at this time. She reports feeling much better. She appear remarkably improved. 0114: I reviewed the patient's case with Fidelia Ferro. He will evaluate the patient for further management. Medical Decision Differential diagnosis: Etiologies such as infections, reactive airway disease, pneumonia, pneumothorax , COPD, CHF, cardiac ischemia, pulmonary embolism, musculoskeletal, gastrointestinal, as well as others were entertained. Patient initially ill-appearing on arrival with markedly increased work of breathing. All history initially from EMS, and while initially stabilizing the patient a brief review of EMR was also performed. Patient with long-standing history of COPD as well as recent exacerbation. Family states she had recently discontinued antibiotics and steroids. He denies any other sick contacts, but state her condition has slowly worsened over the course of the week. Patient is not on chronic oxygen at home, does use nebulizer and MDI treatments, do see pulmonology and regular basis. Likely patient's body habitus contributing to difficulty breathing. Patient tachycardic, tachypneic, and hypoxic initially. Initial oxygen saturations in the 70s, however improved with an oxygen mask being placed over the patient's trach. Due to her significant work of breathing and concern for acute respiratory failure, patient was placed on BiPAP. Patient's trach is a metallic Christophe device, and neither myself nor the respiratory therapist were aware of any adapters or additional IN order to place patient via the trach directly on the vent. Patient improved on BiPAP, with nebulizer treatments being placed through the BiPAP set up, was given IV magnesium and IV Solu-Medrol as soon as IV access was established. I do not suspect CHF, no evidence of ACS. I do not suspect PE. Patient continued to improve and vital signs stabilized. No additional evidence of sepsis, however given recent ER visits, worsening condition, risk factors for infection, patient covered with IV antibiotics potentially for a healthcare associated pneumonia. Blood cultures are pending. Patient markedly improved at the time of hospitalist evaluation. Medication Reconcilliation Current Medication List: was personally reviewed by me Blood Pressure Screening Patient's blood pressure: Elevated blood pressure Blood pressure disposition: Referred to PCP Consults Time Called: 0110 Consulting Physician: Fidelia Ferro Returned Call: 0114 I discussed the patient's case. He will further evaluate the patient. Impression Primary Impression: Respiratory distress Additional Impressions: Hypoxia COPD exacerbation Obesity Tracheostomy present Hypoventilation associated with obesity Hypercapnia Critical Care I have personally spent 60 minutes of critical care time in the direct management of this patient. This includes bedside care, interpretation of diagnostic studies, and testing, discussion with consultants, patient, and family members, and other required patient management activities. This 60 minutes is in excess of all separately billable procedures. Scribe Attestation The scribe's documentation has been prepared under my direction and personally reviewed by me in its entirety. I confirm that the note above accurately reflects all work, treatment, procedures, and medical decision making performed by me. Departure Information Dispostion Being Evaluated By Hospitalist (Dr. Blanton, [facility] Hospitalist) Referrals Rowan Leos D.O. (PCP) Patient Instructions My [facility] Problem Qualifiers Additional Impressions: Obesity Obesity type: unspecified obesity type Obesity classification: unspecified obesity classification Serious obesity comorbidity presence: without serious comorbidity Qualified Codes: E66.9 - Obesity, unspecified
[2018-01-15 00:20] LABS: HEMATOCRIT 40.7 % (37-47); HEMOGLOBIN 12.8 g/dL (12.0-16.0); MEAN CELL VOLUME 88.3 fL (80-100); MEAN CORPUSCULAR HEMOGLOBIN 27.8 pg (25-34); MEAN CORPUSCULAR HGB CONC 31.4 g/dl (32-36); MEAN PLATELET VOLUME 9.1 fL (7.4-10.4); PLATELET COUNT 219 K/uL (130-400); RED CELL DISTRIBUTION WIDTH CV 16.1 % (11.5-14.5); RED CELL DISTRIBUTION WIDTH SD 52.2 fL (36.4-46.3); WHITE BLOOD COUNT 11.21 K/uL (4.8-10.8)
[2018-01-15] MEDS ORDERED: CEFEPIME IV 2,000 MG in DEXTROSE 5% 100ML 100 ML IV STA (00:23)
[2018-01-15] MEDS ORDERED: VANCOMYCIN IV 2,000 MG in SODIUM CHLORIDE 0.9% 500ML 500 ML IV STA (00:28)
[2018-01-15] MEDS ORDERED: AZITHROMYCIN IV 500 MG in DEXTROSE 5% 250ML 250 ML IV ONE (00:30)
[2018-01-15] MEDS ORDERED: VANCOMYCIN CONSULT ACTIVE PRN (00:30)
[2018-01-15 00:38] LABS: ALBUMIN 2.9 gm/dl (3.4-5.0); ALT/SGPT 60 U/L (12-78); AST/SGOT 57 U/L (15-37); BLOOD UREA NITROGEN 16 mg/dl (7-18); CALCIUM 8.5 mg/dl (8.5-10.1); CARBON DIOXIDE 28 mmol/L (21-32); CREATININE 1.48 mg/dl (0.60-1.20); GLUCOSE 180 mg/dl (70-99); POTASSIUM 4.2 mmol/L (3.5-5.1); SODIUM 131 mmol/L (136-145)
[2018-01-15 00:43] LABS: ISTAT CREATININE 1.4 mg/dl (0.6-1.3); ISTAT IONIZED CALCIUM 1.23 mmol/l (1.12-1.32); ISTAT POTASSIUM 4.3 mEq/L (3.3-5.0)
[2018-01-15 00:43] LABS: ALKALINE PHOSPHATASE 142 U/L (45-117); TOTAL PROTEIN 7.7 gm/dl (6.4-8.2)
[2018-01-15] MEDS ORDERED: ALBUT/IPRATROP 3MG/0.5MG NEB 3 ML VIAL INH ONE (00:45)
--- NOTE | 2018-01-15 00:53 | DIAGNOSTIC IMAGING REPORT ---
SINGLE VIEW CHEST CLINICAL HISTORY: Dyspnea. FINDINGS: 2 AP, portable, upright chest radiographs compared to study dated 01/10/2018. The examination is degraded by portable technique, large body habitus, motion artifact, and patient rotation. A tracheostomy is unchanged in position. The heart is enlarged. Mild pulmonary vascular congestion is suggested. There is bibasilar atelectasis. No large pleural effusion or focal airspace consolidation is seen. No pneumothorax is seen. The skeletal structures are osteopenic. There are healed right-sided rib fracture. IMPRESSION: 1. Degraded examination as above. 2. Cardiomegaly. Mild pulmonary vascular congestion is suggested. 3. No airspace consolidation or large pleural effusion is identified. Electronically signed by: Jasper Hancock M.D. 01/15/2018 12:52 AM Dictated Date/Time: 01/15/2018 12:51 AM
[2018-01-15 00:57] LABS: BASO % 0.2 %; BASO ABS # 0.02 K/uL (0-0.2); IG# 0.11 K/uL (0.00-0.02); LYMPH ABS # 2.58 K/uL (1.2-3.4); MONO ABS # 1.35 K/uL (0.11-0.59); NEUT % 63.8 %; NEUT ABS # 7.15 K/uL (1.4-6.5)
[2018-01-15] MEDS ORDERED: ICU PROTOCOL FOR HYPERGLYCEMIA PRN (01:45)
[2018-01-15] MEDS ORDERED: ONDANSETRON INJ 2 MG/ML 2 ML VIAL IV PRN (01:45)
[2018-01-15] MEDS ORDERED: ACETAMINOPHEN 325 MG TAB PO PRN (01:45)
[2018-01-15] MEDS ORDERED: SODIUM CHLORIDE 0.9% 1000ML 1,000 ML IV SCH (02:15)
--- NOTE | 2018-01-15 02:38 | History and Physical ---
History & Physical Date & Time of Service: Jan 15, 2018 at 02:28 Chief Complaint: Respiratory Difficulty Primary Care Physician: Rowan Leos D.O. History of Present Illness Source: patient, family, clinic records, hospital records Patient is a 62-year-old female who presents to the ER for complaints of worsening shortness of breath. The patient lives with her daughter who is also at the bedside, and reports that the patient has been complaining of cough and shortness of breath for the past 2 days. The patient has reportedly been on steroids for the last several months and was just weaned completely off of steroids and antibiotics approximately 2 days ago. Also of note the patient has been to the emergency room twice prior to today's visit for similar complaints. The patient states that she has had increasing cough, but minimal phlegm. She normally is able to clear her secretions via her tracheostomy without suctioning. Patient states she has been compliant with her home medications and inhalers, but did not see any improvement in her symptoms even with her nebs., Patient otherwise denies any complaints of chest pain, palpitations, headache, dizziness, lightheadedness, nasal congestion, sore throat, sinus congestion. No known sick contacts. Completed outpatient Levaquin 2 days ago. Patient also has had significant dyspnea on exertion, and per family members becomes dyspneic even with ambulating from her chair to the bathroom. Past Medical/Surgical History Medical Problems: (1) Anxiety (2) Bronchiectasis (3) Chronic respiratory failure (4) CKD (chronic kidney disease), stage III (5) COPD (chronic obstructive pulmonary disease) (6) DM type 2 (diabetes mellitus, type 2) (7) Dyslipidemia (8) HTN (hypertension) (9) Hypothyroid (10) Hypoventilation associated with obesity (11) Migraine (12) MRSA (methicillin resistant staph aureus) culture positive (13) Tracheostomy in place Surgical Problems: (1) History of appendectomy (2) History of cholecystectomy (3) History of hysterectomy (4) History of tonsillectomy and adenoidectomy (5) S/P IVC filter Family History FH: COPD (chronic obstructive pulmonary disease) MOTHER Social History Smoking Status: Never Smoker Smokeless Tobacco Use: No Alcohol Use: none Drug Use: none Marital Status: Housing status: lives with family Occupational Status: disabled Immunizations History of Influenza Vaccine: Yes Influenza Vaccine Date: Sep 27, 2016 History of Tetanus Vaccine?: Yes Tetanus Immunization Date: Jul 29, 2011 History of Pneumococcal: Yes Pneumococcal Date: Sep 27, 2016 Multi-Drug Resistant Organisms History of MDRO: Yes Type of MDRO: MRSA Allergies Coded Allergies: Amitriptyline (Verified Allergy, Unknown, `, 01/15/18) Gabapentin (Verified Allergy, Unknown, `, 01/15/18) Metformin (Verified Allergy, Unknown, `, 01/15/18) Penicillins (Verified Allergy, Unknown, `, 01/15/18) Pseudoephedrine (Verified Allergy, Unknown, `, 01/15/18) Tetracycline (Verified Allergy, Unknown, `, 01/15/18) Home Medications Scheduled Aspirin (Aspir-81), 1 TAB PO DAILY Atorvastatin (Lipitor), 20 MG PO DAILY Bupropion (Wellbutrin Sr), 300 MG PO DAILY Clotrimazole W/ Betamethasone (Lotrisone), 1 APPLN TOP AMPM Desloratadine (Clarinex), 5 MG PO DAILY Ergocalciferol (Vitamin D 35948 Unit), 1 TAB PO 3XWK Folic Acid (Folic Acid), 1 MG PO DAILY Home O2 Therapy (Oxygen), 5 LITERS MS UD Insulin Glargine (Lantus), 75 UNITS SC AMPM Insulin Human Lispro (Insulin Humalog Pump ), 1 EA N/A UD Ipratropium-Albuterol (Combivent Respimat), 1 PUFF INH QID Isosorbide Mononitrate Ext Rel (Imdur Ext Rel), 60 MG PO DAILY Ketoconazole (Ketoconazole), 1 APPLN TOP BID Levothyroxine Sodium (Levothyroxine Sodium), 200 MCG PO 5XWK Levothyroxine Sodium (Levothyroxine Sodium), 300 MCG PO 2XWK Metoprolol Tartrate (Lopressor), 12.5 MG PO BID Montelukast Sod (Montelukast Sodium), 10 MG PO DAILY Multivitamin (Multivitamin), 1 TAB PO DAILY Pantoprazole (Pantoprazole Sodium), 40 MG PO DAILY Potassium Chloride (Potassium Chloride Cr), 10 MEQ PO BID Topiramate (Topiramate), 100 MG PO QAM Topiramate (Topamax), 200 MG PO HS Torsemide (Demadex), 20 MG PO DAILY Triamcinolone Acet (Triamcinolone Acetonide), 1 APPLN TOP BID Scheduled PRN Albuterol Sulfate (Proair Respiclick), 2 PUFFS INH Q4H PRN for SOB/Wheezing Ipratropium-Albuterol (Duoneb), 1 TREATMENT INH QID PRN for Coughing,WHZ or SOB Lorazepam (Ativan), 1 MG PO Q8 PRN for anxiety/agitation or sleep Nitroglycerin (Nitrostat), 0.4 MG UT UD PRN for Chest Pain Tramadol (Ultram), 50 MG PO BID PRN for Pain Review of Systems Constitutional: + chills, No fever, No sweats, No weight loss Eyes: No worsening of vision, No redness, No diplopia ENT: No nasal symptoms, No sore throat, No trouble swallowing Respiratory: + cough, + wheezing, + shortness of breath, + dyspnea on exertion Cardiovascular: No chest pain, No edema, No palpitations Abdomen: No pain, No nausea, No vomiting, No diarrhea, No GI bleeding Musculoskeletal: No joint pain, No muscle pain, No swelling Genitourinary - Female: No dysuria, No urinary frequency, No urinary urgency Neurologic: No paralysis, No numbness/tingling, No vertigo, No balance problems Psychiatric: No depression symptoms, No anxiety, No insomnia Endocrine: No fatigue, No excessive thirst, No excessive urination Hematologic / Lymphatic: No abnormal bleeding/bruising, No clotting problems, No swollen lymph nodes Integumentary: No rash, No itch, No new/changing skin lesions Physical Exam Vital Signs Date Time Temp Pulse Resp B/P (MAP) Pulse Ox O2 Delivery O2 Flow Rate FiO2 01/15/18 02:21 91 21 93 BiPAP 35 01/15/18 02:17 107/62 01/15/18 02:06 89 21 93 BiPAP 35 01/15/18 02:01 144/71 01/15/18 01:51 91 26 95 BiPAP 35 01/15/18 01:46 112/76 01/15/18 01:36 92 34 96 BiPAP 35 01/15/18 01:31 93 31 107/63 94 BiPAP 35 01/15/18 01:16 92 35 125/75 96 BiPAP 35 01/15/18 01:11 95 28 96 BiPAP 35 01/15/18 00:56 95 31 95 BiPAP 35 01/15/18 00:51 125/70 01/15/18 00:41 101 37 96 BiPAP 35 01/15/18 00:36 98 29 92 BiPAP 35 01/15/18 00:21 100 33 93 BiPAP 35 01/15/18 00:20 95 92 35 01/15/18 00:16 138/85 01/15/18 00:14 101 34 97 BiPAP 35 01/15/18 00:10 188/110 01/15/18 00:07 107 01/15/18 00:03 96 Nebulizer 15.0 01/15/18 00:03 159/144 01/14/18 23:59 37.2 106 42 159/144 64 Room Air 01/14/18 23:59 65 Room Air 01/14/18 23:59 94 Room Air General Appearance: WD/WN, no apparent distress Head: normocephalic, atraumatic Eyes: PERRL, EOMI, sclerae normal (conjunctivae clear) ENT: hearing grossly normal Neck: supple, no carotid bruits, trachea midline, + pertinent finding (trach present) Respiratory/Chest: chest non-tender, no accessory muscle use, + respiratory distress, + rhonchi, + wheezing Cardiovascular: regular rate, rhythm, no gallop, no JVD, no murmur Abdomen/GI: normal bowel sounds, non tender, soft, no organomegaly Back: no CVA tenderness Extremities/Musculoskelatal: no calf tenderness, normal capillary refill, non- tender, + pedal edema, + swelling Neurologic/Psych: no motor/sensory deficits, alert, normal mood/affect, oriented x 3 Skin: normal color, warm/dry, no rash Diagnostics Laboratory Results Results Past 24 Hours Test 01/15/18 00:05 01/15/18 00:26 01/15/18 00:40 Range/Units White Blood Count 11.21 4.8-10.8 K/uL Red Blood Count 4.61 4.2-5.4 M/uL Hemoglobin 12.8 12.0-16.0 g/dL Hematocrit 40.7 37-47 % Mean Corpuscular Volume 88.3 80-100 fL Mean Corpuscular Hemoglobin 27.8 25-34 pg Mean Corpuscular Hemoglobin Concent 31.4 32-36 g/dl Platelet Count 219 130-400 K/uL Mean Platelet Volume 9.1 7.4-10.4 fL Neutrophils (%) (Auto) 63.8 % Lymphocytes (%) (Auto) 23.0 % Monocytes (%) (Auto) 12.0 % Eosinophils (%) (Auto) 0.0 % Basophils (%) (Auto) 0.2 % Neutrophils # (Auto) 7.15 1.4-6.5 K/uL Lymphocytes # (Auto) 2.58 1.2-3.4 K/uL Monocytes # (Auto) 1.35 0.11-0.59 K/uL Eosinophils # (Auto) 0.00 0-0.5 K/uL Basophils # (Auto) 0.02 0-0.2 K/uL RDW Standard Deviation 52.2 36.4-46.3 fL RDW Coefficient of Variation 16.1 11.5-14.5 % Immature Granulocyte % (Auto) 1.0 % Immature Granulocyte # (Auto) 0.11 0.00-0.02 K/uL Prothrombin Time 10.3 9.0-12.0 SECONDS Prothromb Time International Ratio 1.0 0.9-1.1 Sodium Level 131 136-145 mmol/L Potassium Level 4.2 3.5-5.1 mmol/L Chloride Level 96 98-107 mmol/L Carbon Dioxide Level 28 21-32 mmol/L Anion Gap 7.0 18.0 16-25 mmol/L Blood Urea Nitrogen 16 7-18 mg/dl Creatinine 1.48 0.60-1.20 mg/dl Estimated GFR () 43.8 Estimated GFR (Non- 37.8 BUN/Creatinine Ratio 10.6 10-20 Random Glucose 180 70-99 mg/dl Calcium Level 8.5 8.5-10.1 mg/dl Magnesium Level 2.0 1.8-2.4 mg/dl Total Bilirubin 0.5 0.2-1 mg/dl Aspartate Amino Transf (AST/SGOT) 57 15-37 U/L Alanine Aminotransferase (ALT/SGPT) 60 12-78 U/L Alkaline Phosphatase 142 45-117 U/L Troponin I < 0.015 0-0.045 ng/ml Pro-B-Type Natriuretic Peptide 112 0-900 pg/ml Total Protein 7.7 6.4-8.2 gm/dl Albumin 2.9 3.4-5.0 gm/dl Globulin 4.8 2.5-4.0 gm/dl Albumin/Globulin Ratio 0.6 0.9-2 Bedside Hemoglobin 15.0 12.0-16.0 g/dl Bedside Hematocrit 44 37-47 % Bedside Sodium 132 135-144 mEq/L Bedside Potassium 4.3 3.3-5.0 mEq/L Bedside Chloride 94 101-112 mEq/L Bedside Total CO2 26 24-31 mEq/l Bedside Blood Urea Nitrogen 16 7-18 mg/dl Bedside Creatinine 1.4 0.6-1.3 mg/dl Bedside Glucose (other) 184 70-99 mg/dl Bedside Ionized Calcium (Enedelia) 1.23 1.12-1.32 mmol/l Bedside Blood Gas pH (LAB) 7.27 7.35-7.45 Bedside Blood Gas pCO2 (LAB) 58 35-46 mmHg Bedside Blood Gas pO2 (LAB) 69 80-95 mmHg Bedside Blood Gas HCO3 (LAB) 27 19-24 meq/L Bedside Blood Gas Total CO2 28 24-31 mEq/l Bedside Blood Gas Base Excess (LAB) 0.0 -9-1.8 meq/L Bedside Blood Gas O2 Saturation 91.0 90-95 % Microbiology Results 01/15/18 Blood Culture, Received Pending 01/15/18 Blood Culture, Received Pending Impression Assessment and Plan ACUTE ON CHRONIC RESPIRATORY FAILURE: -multifactorial secondary to obstructive sleep apnea and likely obesity hypoventilation syndrome. Also per records has asthma/COPD however has not been formally evaluated -patient has a tracheostomy secondary to the above -presents to the ER with worsening SOB and wheezing, at baseline uses 5L oxygen , has been requiring bipap and despite this + nebs + steroids, the patient continues to feel distressed and with diffuse wheezing -discussed with Joint Cutter and the patient will be transferred to the ICU -POC blood gas showed pH: 7.27, CO2 58, O2 69 , Bicarb 27 -CXR negative for opacity but limited due to body habitus -patient has a slight leukocytosis, tachypnea, and slight fever -continued on bronchodilators and nebulized treatment -continue IV steroids -continue with ceftriaxone + azithro -check for influenza -sputum, blood, and urine cultures -Bipap as needed; was placed over the mouth/nose as patient trach did not seem to have a method of direct connection to bipap -awaiting serum lactate -repeat ABG in AM HYPOTHYROIDISM: -check TSH and free T4 -continue patient on levothyroxine. -did have a history of myxedema in the past DM TYPE II: -at home was maintained on high doses of lantus and an insulin pump. -check HbA1c -Consult glycemic pharmacy for management CAD: -with [place] in past history -initial troponin negative -no additional symptoms at this time -will remain on cardiac rehab nurse -EKG: NSR, RBBB CKD STAGE III: -Cr is slightly worse than baseline -will hold diuretic for now -monitor and avoid nephrotoxins as able SUPER MORBID OBESITY: -BMI: 76 -has limited physical mobility -high risk of further deconditioning; PT/OT when stablized DYSLIPIDEMIA: -continue on statin. GERD: -continue with Protonix. MIGRAINES: -continue with Topamax. ANXIETY/DEPRESSION: -stable -continue on her home medications. Level of Care Critical Care Resuscitation Status FULL RESUSCITATION VTE Prophylaxis VTE Risk Assessment Done? Y/N: Yes Risk Level: High Given or contraindicated: Unfractionated heparin SQ
[2018-01-15] MEDS ORDERED: ASPI-232 PO (02:51)
[2018-01-15] MEDS ORDERED: TRAMADOL HCL 50 MG TAB PO PRN (03:00)
[2018-01-15] MEDS ORDERED: NITROGLYCERIN 0.4 MG SL PER TAB CHARGE UT PRN (03:00)
[2018-01-15] MEDS ORDERED: DEXTROSE 50% 50 ML SYR IV PRN (03:45)
[2018-01-15] MEDS ORDERED: GLUCAGON FOR INJ 1 MG VIAL SQ PRN (03:45)
[2018-01-15] MEDS ORDERED: GLUCOSE 40% GEL 15 GM TUBE PO PRN (03:45)
[2018-01-15] MEDS ORDERED: GLUCOSE 10 TABS/TUBE PO PRN (03:45)
[2018-01-15] MEDS ORDERED: INSULIN ASPART 100 UNITS/ML 3 ML PEN SC STA (03:50)
[2018-01-15] MEDS ORDERED: INSULIN GLARGINE SOLOSTAR 100 UNITS/ML 3 ML PEN SC SCH ×2 (04:00→06:45)
[2018-01-15] MEDS: IPRATROPIUM BROMIDE NEB SOLN 0.02% 2.5 ML VIAL INH SCH ×5 (04:00→19:42)
[2018-01-15] MEDS: LEVALBUTEROL 1.25MG/0.5ML NEB INH SCH ×5 (04:00→19:42)
[2018-01-15] MEDS ORDERED: PHARMACY GLYCEMIC MGMT CONSULT PRN (04:15)
[2018-01-15 05:21] LABS: INFLUENZA A PCR POS for Influ A (NEG); INFLUENZA B PCR Neg for Influ B (NEG)
[2018-01-15] MEDS ORDERED: INSULIN ASPART 100 UNITS/ML 3 ML PEN SC SCH (06:00)
[2018-01-15] MEDS: CEFTRIAXONE SOD INJ 1 GM in DEXTROSE 5% ADD-VANTAGE 50ML 50 ML IV SCH (06:03)
[2018-01-15] MEDS: LEVOTHYROXINE 200 MCG TAB PO SCH (06:05)
[2018-01-15] MEDS: HEPARIN SOD 5000 UNIT/0.5 ML CARP SQ SCH ×3 (06:05→22:53)
[2018-01-15] MEDS: OSELTAMIVIR PHOSPHATE 75 MG CAP PO SCH ×2 (06:30→20:10)
[2018-01-15] MEDS: CLARINEX~ORDER AWAITING ACTION SCH ×2 (07:14→16:00)
--- NOTE | 2018-01-15 07:20 | DIAGNOSTIC IMAGING REPORT ---
CHEST ONE VIEW PORTABLE CLINICAL HISTORY: Respiratory failure COMPARISON STUDY: January 15, 2018 FINDINGS: The heart remains enlarged. A tracheostomy tube is again evident. There is no overt failure. There are increased markings the lung bases. This area is difficult to evaluate given the patient's large body habitus.[ IMPRESSION: 1. Persistent cardiomegaly 2. Increased basilar markings. While likely related to technical factors, and an infectious/inflammatory process cannot be excluded. Electronically signed by: Dariel Chandler M.D. 01/15/2018 7:18 AM Dictated Date/Time: 01/15/2018 7:17 AM
[2018-01-15] MEDS: ATORVASTATIN 20 MG TAB PO SCH (08:14)
[2018-01-15] MEDS: METHYLPREDNISOLONE IV 60 MG in SYRINGE 0 ML IV SCH ×2 (08:14→16:46)
[2018-01-15] MEDS: PANTOprazole SOD 40 MG TAB PO SCH (08:15)
[2018-01-15] MEDS: ASPIRIN 81 MG ECTAB PO SCH (08:15)
[2018-01-15] MEDS: MULTIVITAMIN TAB PO SCH (08:15)
[2018-01-15] MEDS: TOPIRAMATE 100 MG TAB PO SCH ×2 (08:15→20:13)
[2018-01-15] MEDS: ISOSORBIDE MONONITRATE 60 MG TABCR PO SCH (08:15)
[2018-01-15] MEDS: METOPROLOL TARTRATE 25 MG TAB PO SCH ×2 (08:16→20:15)
[2018-01-15] MEDS: KETOCONAZOLE 2% CR 15 GM TUBE EXT SCH ×2 (08:16→20:07)
[2018-01-15] MEDS: CLOTRIMAZOLE/BETAMETHASONE CR 15 GM TUBE EXT SCH ×2 (08:16→20:08)
[2018-01-15] MEDS: MONTELUKAST SOD 10 MG TAB PO SCH (08:16)
[2018-01-15] MEDS ORDERED: BuPROPion SR 100 MG TABCR PO SCH (09:00)
[2018-01-15] MEDS ORDERED: TORSEMIDE 20 MG TAB PO SCH (09:00)
[2018-01-15 09:07] LABS: HEMATOCRIT 39.4 % (37-47); HEMOGLOBIN 12.6 g/dL (12.0-16.0); MEAN CELL VOLUME 87.6 fL (80-100); MEAN PLATELET VOLUME 9.1 fL (7.4-10.4); PLATELET COUNT 190 K/uL (130-400); RED CELL DISTRIBUTION WIDTH SD 51.7 fL (36.4-46.3); WHITE BLOOD COUNT 6.56 K/uL (4.8-10.8)
[2018-01-15] MEDS ORDERED: NovoLIN R BOLUS FROM BAG IV ONE (09:30)
[2018-01-15 09:34] LABS: CALCIUM 8.5 mg/dl (8.5-10.1); CREATININE 1.28 mg/dl (0.60-1.20); POTASSIUM 4.7 mmol/L (3.5-5.1)
[2018-01-15] MEDS: INSULIN REGULAR 250 UNITS in SODIUM CHLORIDE 0.9% 250ML 250 ML IV SCH (09:40)
--- NOTE | 2018-01-15 11:39 | Progress Note ---
Internal Med Progress Note Date of Service: Jan 15, 2018. Provider Documentation: SUBJECTIVE: The patient was seen and examined Admitted with more SOB and Influenza A Clinically better today OBJECTIVE: Vital Signs-as noted below Exam: General-Minimal distress at rest Morbidly Obese Eyes-Normal ENT-normal Neck-supple has tracheostomy tube in place Lungs-decreased breath sound bilaterally Heart-Regular,No murmur appreciated Abdomen-Benign,no masses,bowel sound present Extremities-Chronic Edema bilaterally Neuro-AAOx3 Lab data as noted below. ASSESSMENT & PLAN: ACUTE ON CHRONIC RESPIRATORY FAILURE: Complicated by Influenza A;Exacerbation of COPD -multifactorial secondary to obstructive sleep apnea and likely obesity hypoventilation syndrome and COPD exacerbation -patient has a tracheostomy secondary to the above -appreciate [employer] input -POC blood gas showed pH: 7.27, CO2 58, O2 69 , Bicarb 27 :: Has Chronic hypercarbic respiratory failure -CXR negative for opacity but limited due to body habitus -continued on bronchodilators and nebulized treatment -continue IV steroids -continue with ceftriaxone + azithro -sputum, blood, and urine cultures -Bipap as needed; was placed over the mouth/nose as patient trach did not seem to have a method of direct connection to bipap -Clinically better OOB in a chair Has Tracheostomy tube in place Management as directed Continue periodic suction HYPOTHYROIDISM: -check TSH and free T4 -TSH is mildly low but free T4 -normal -continue patient on levothyroxine. DM TYPE II: -at home was maintained on high doses of Lantus and an insulin pump. -check [id number] -Consult glycemic pharmacy for management -has been on Insulin PUMP at home and now on IV insulin CAD: -with [place] in past history -initial troponin negative -no additional symptoms at this time -will remain on cardiac tech -EKG: NSR, RBBB CKD STAGE III: -Cr is slightly worse than baseline -Has significant Edema -monitor and avoid nephrotoxins as able -getting 40 mg IV Lasix Q8H for 3 doses -monitor PRP and electrolytes SUPER MORBID OBESITY: -BMI: 76 -has limited physical mobility -high risk of further deconditioning; PT/OT when stablized DYSLIPIDEMIA: -continue on statin. GERD: -continue with Protonix. MIGRAINES: -continue with Topamax. ANXIETY/DEPRESSION: -stable -continue on her home medications. Vital Signs: Date Time Temp Pulse Resp B/P (MAP) Pulse Ox O2 Delivery O2 Flow Rate FiO2 01/15/18 11:20 74 18 96 Trach Collar 10.0 40 01/15/18 10:01 77 18 136/66 (89) 95 Trach Collar 01/15/18 08:07 36.9 92 26 145/84 (104) 93 Trach Collar 01/15/18 08:00 Trach Collar 01/15/18 07:45 85 20 94 Trach Collar 10.0 01/15/18 06:16 37.2 86 24 121/65 (83) 94 BiPAP 35 01/15/18 05:48 85 91 35 01/15/18 04:30 94 BiPAP 36 01/15/18 03:50 37.1 87 26 117/72 (87) 94 BiPAP 35 01/15/18 02:33 38.0 107 26 135/84 94 BiPAP 35 01/15/18 02:21 91 21 93 BiPAP 35 01/15/18 02:17 107/62 01/15/18 02:06 89 21 93 BiPAP 35 01/15/18 02:01 144/71 01/15/18 01:51 91 26 95 BiPAP 35 01/15/18 01:46 112/76 01/15/18 01:36 92 34 96 BiPAP 35 01/15/18 01:31 93 31 107/63 94 BiPAP 35 01/15/18 01:16 92 35 125/75 96 BiPAP 35 01/15/18 01:11 95 28 96 BiPAP 35 01/15/18 00:56 95 31 95 BiPAP 35 01/15/18 00:51 125/70 01/15/18 00:41 101 37 96 BiPAP 35 01/15/18 00:36 98 29 92 BiPAP 35 01/15/18 00:21 100 33 93 BiPAP 35 01/15/18 00:20 95 92 35 01/15/18 00:16 138/85 01/15/18 00:14 101 34 97 BiPAP 35 01/15/18 00:10 188/110 01/15/18 00:07 107 01/15/18 00:03 96 Nebulizer 15.0 01/15/18 00:03 159/144 01/14/18 23:59 37.2 106 42 159/144 64 Room Air 01/14/18 23:59 65 Room Air 01/14/18 23:59 94 Room Air Lab Results: Results Past 24 Hours Test 01/15/18 00:05 01/15/18 00:26 01/15/18 00:40 01/15/18 03:00 Range/Units White Blood Count 11.21 4.8-10.8 K/uL Red Blood Count 4.61 4.2-5.4 M/uL Hemoglobin 12.8 12.0-16.0 g/dL Hematocrit 40.7 37-47 % Mean Corpuscular Volume 88.3 80-100 fL Mean Corpuscular Hemoglobin 27.8 25-34 pg Mean Corpuscular Hemoglobin Concent 31.4 32-36 g/dl Platelet Count 219 130-400 K/uL Mean Platelet Volume 9.1 7.4-10.4 fL Neutrophils (%) (Auto) 63.8 % Lymphocytes (%) (Auto) 23.0 % Monocytes (%) (Auto) 12.0 % Eosinophils (%) (Auto) 0.0 % Basophils (%) (Auto) 0.2 % Neutrophils # (Auto) 7.15 1.4-6.5 K/uL Lymphocytes # (Auto) 2.58 1.2-3.4 K/uL Monocytes # (Auto) 1.35 0.11-0.59 K/uL Eosinophils # (Auto) 0.00 0-0.5 K/uL Basophils # (Auto) 0.02 0-0.2 K/uL RDW Standard Deviation 52.2 36.4-46.3 fL RDW Coefficient of Variation 16.1 11.5-14.5 % Immature Granulocyte % (Auto) 1.0 % Immature Granulocyte # (Auto) 0.11 0.00-0.02 K/uL Prothrombin Time 10.3 9.0-12.0 SECONDS Prothromb Time International Ratio 1.0 0.9-1.1 Sodium Level 131 136-145 mmol/L Potassium Level 4.2 3.5-5.1 mmol/L Chloride Level 96 98-107 mmol/L Carbon Dioxide Level 28 21-32 mmol/L Anion Gap 7.0 18.0 16-25 mmol/L Blood Urea Nitrogen 16 7-18 mg/dl Creatinine 1.48 0.60-1.20 mg/dl Estimated GFR () 43.8 Estimated GFR (Non- 37.8 BUN/Creatinine Ratio 10.6 10-20 Random Glucose 180 70-99 mg/dl Calcium Level 8.5 8.5-10.1 mg/dl Magnesium Level 2.0 1.8-2.4 mg/dl Total Bilirubin 0.5 0.2-1 mg/dl Aspartate Amino Transf (AST/SGOT) 57 15-37 U/L Alanine Aminotransferase (ALT/SGPT) 60 12-78 U/L Alkaline Phosphatase 142 45-117 U/L Troponin I < 0.015 0-0.045 ng/ml Pro-B-Type Natriuretic Peptide 112 0-900 pg/ml Total Protein 7.7 6.4-8.2 gm/dl Albumin 2.9 3.4-5.0 gm/dl Globulin 4.8 2.5-4.0 gm/dl Albumin/Globulin Ratio 0.6 0.9-2 Bedside Hemoglobin 15.0 12.0-16.0 g/dl Bedside Hematocrit 44 37-47 % Bedside Sodium 132 135-144 mEq/L Bedside Potassium 4.3 3.3-5.0 mEq/L Bedside Chloride 94 101-112 mEq/L Bedside Total CO2 26 24-31 mEq/l Bedside Blood Urea Nitrogen 16 7-18 mg/dl Bedside Creatinine 1.4 0.6-1.3 mg/dl Bedside Glucose 161 70-90 mg/dl Bedside Glucose (other) 184 70-99 mg/dl Bedside Ionized Calcium (Enedelia) 1.23 1.12-1.32 mmol/l Bedside Blood Gas pH (LAB) 7.27 7.35-7.45 Bedside Blood Gas pCO2 (LAB) 58 35-46 mmHg Bedside Blood Gas pO2 (LAB) 69 80-95 mmHg Bedside Blood Gas HCO3 (LAB) 27 19-24 meq/L Bedside Blood Gas Total CO2 28 24-31 mEq/l Bedside Blood Gas Base Excess (LAB) 0.0 -9-1.8 meq/L Bedside Blood Gas O2 Saturation 91.0 90-95 % Influenza Type A (RT-PCR) POS for Influ A NEG Influenza Type B (RT-PCR) Neg for Influ B NEG Test 01/15/18 03:36 01/15/18 04:20 01/15/18 05:54 01/15/18 08:54 Range/Units Bedside Glucose 194 207 70-90 mg/dl Urine Color YELLOW Urine Appearance CLOUDY CLEAR Urine pH 6.0 4.5-7.5 Urine Specific [place] 1.016 1.000-1.030 Urine Protein TRACE NEG Urine Glucose (UA) NEG NEG Urine Ketones NEG NEG Urine Occult Blood 2+ NEG Urine Nitrite POS NEG Urine Bilirubin NEG NEG Urine Urobilinogen NEG NEG Urine Leukocyte Esterase MODERATE NEG Urine WBC (Auto) >30 0-5 /hpf Urine RBC (Auto) 5-10 0-4 /hpf Urine Hyaline Casts (Auto) 1-5 0-5 /lpf Urine Epithelial Cells (Auto) 5-10 0-5 /lpf Urine Bacteria (Auto) 1+ NEG White Blood Count 6.56 4.8-10.8 K/uL Red Blood Count 4.50 4.2-5.4 M/uL Hemoglobin 12.6 12.0-16.0 g/dL Hematocrit 39.4 37-47 % Mean Corpuscular Volume 87.6 80-100 fL Mean Corpuscular Hemoglobin 28.0 25-34 pg Mean Corpuscular Hemoglobin Concent 32.0 32-36 g/dl RDW Standard Deviation 51.7 36.4-46.3 fL RDW Coefficient of Variation 16.0 11.5-14.5 % Platelet Count 190 130-400 K/uL Mean Platelet Volume 9.1 7.4-10.4 fL Sodium Level 131 136-145 mmol/L Potassium Level 4.7 3.5-5.1 mmol/L Chloride Level 97 98-107 mmol/L Carbon Dioxide Level 27 21-32 mmol/L Anion Gap 7.0 3-11 mmol/L Blood Urea Nitrogen 16 7-18 mg/dl Creatinine 1.28 0.60-1.20 mg/dl Est Creatinine Clear Calc Drug Dose 77.0 ml/min Estimated GFR () 52.2 Estimated GFR (Non- 45.1 BUN/Creatinine Ratio 12.7 10-20 Random Glucose 241 70-99 mg/dl Calcium Level 8.5 8.5-10.1 mg/dl Magnesium Level 2.2 1.8-2.4 mg/dl Troponin I 0.041 0-0.045 ng/ml Thyroid Stimulating Hormone (TSH) 0.156 0.300-4.500 uIu/ml Free Thyroxine 1.60 0.80-1.60 ng/dl Test 2/25/18 10:41 Range/Units Bedside Glucose 225 70-90 mg/dl Microbiology Results 01/15/18 Blood Culture, Received Pending 01/15/18 Blood Culture, Received Pending 01/15/18 MRSA DNA Surveillance Screen - Final, Complete Specimen Positive for MRSA by DNA Probe 01/15/18 Urine Culture, Received Pending
--- NOTE | 2018-01-15 11:43 | Critical Care Consultation ---
Critical Care Consultation Date of Consultation: Jan 15, 2018. Attending Physician: Jhony Pat M.D. Reason for Consultation: Acute on chronic hypercapnic respiratory failure. History of Present Illness Dear Dr. Blanton, Thank you for your kind referral of to critical care service. This is a 62-year-old female with history of morbid obesity, COPD, acute on chronic respiratory failure, chronic hypercapnic, history of hypertension, hyperlipidemia, hypothyroidism, diabetes, poorly ambulatory, sleeps only in a chair position, presented to the hospital with increasing shortness of breath for the past 2 days, she has been having chills according to her. She lives with her daughter who takes care of her. The patient denies any chest pain itself. No shortness of breath mainly in supine position and even recumbent position. She does not prefer to sleep except in a recliner. The patient due to her condition underwent tracheostomy tube which was placed in 2009, the patient had Christophe trach in place. She has been taking care of it according to her and the inner cannula has been cleaned twice daily. The patient has been followed by Dr. Huerta from ENT and [facility]. On her presentation this time she denies any nausea or vomiting, no abdominal pain, she noted increased swelling in her lower extremities. She did not have any dizziness or near syncopal episode. When she presented to the ED, she was tested positive for influenza A, the patient started accordingly on antibiotics including Tamiflu. The patient was admitted to the ICU due to acute and chronic hypercapnia. She did not require any ventilation, she is mentating very well and answering questions properly. Does not have any stridor and denies any wheezing. She has been using her bronchodilators even at home. She was placed on the BiPAP but she did not have any benefit from it. Currently the patient is improved significantly, she is able to follow commands and answer questions appropriately, no altered mental status was noted, short of breath only with recumbent position and she preferred to stay in upright position or out of bed. On her labs and her imaging were reviewed personally. She does have mild leukocytosis, hyperglycemia, and her chest x-ray showed small lung volumes with cardiomegaly. Past Medical/Surgical History As above and the first section. Family History FH: COPD (chronic obstructive pulmonary disease) MOTHER Social History Smoking Status: Never Smoker Smokeless Tobacco Use: No Alcohol Use: none Drug Use: none Marital Status: Housing Status: lives with family Occupation Status: disabled Allergies Coded Allergies: Amitriptyline (Verified Allergy, Unknown, `, 01/15/18) Gabapentin (Verified Allergy, Unknown, `, 01/15/18) Metformin (Verified Allergy, Unknown, `, 01/15/18) Penicillins (Verified Allergy, Unknown, `, 01/15/18) Pseudoephedrine (Verified Allergy, Unknown, `, 01/15/18) Tetracycline (Verified Allergy, Unknown, `, 01/15/18) Home Medications Scheduled Aspirin (Aspir-81), 1 TAB PO DAILY Atorvastatin (Lipitor), 20 MG PO DAILY Bupropion (Wellbutrin Sr), 300 MG PO DAILY Clotrimazole W/ Betamethasone (Lotrisone), 1 APPLN TOP AMPM Desloratadine (Clarinex), 5 MG PO DAILY Ergocalciferol (Vitamin D 55442 Unit), 1 TAB PO 3XWK Folic Acid (Folic Acid), 1 MG PO DAILY Home O2 Therapy (Oxygen), 5 LITERS MS UD Insulin Glargine (Lantus), 75 UNITS SC AMPM Insulin Human Lispro (Insulin Humalog Pump ), 1 EA N/A UD Ipratropium-Albuterol (Combivent Respimat), 1 PUFF INH QID Isosorbide Mononitrate Ext Rel (Imdur Ext Rel), 60 MG PO DAILY Ketoconazole (Ketoconazole), 1 APPLN TOP BID Levothyroxine Sodium (Levothyroxine Sodium), 200 MCG PO 5XWK Levothyroxine Sodium (Levothyroxine Sodium), 300 MCG PO 2XWK Metoprolol Tartrate (Lopressor), 12.5 MG PO BID Montelukast Sod (Montelukast Sodium), 10 MG PO DAILY Multivitamin (Multivitamin), 1 TAB PO DAILY Pantoprazole (Pantoprazole Sodium), 40 MG PO DAILY Potassium Chloride (Potassium Chloride Cr), 10 MEQ PO BID Topiramate (Topiramate), 100 MG PO QAM Topiramate (Topamax), 200 MG PO HS Torsemide (Demadex), 20 MG PO DAILY Triamcinolone Acet (Triamcinolone Acetonide), 1 APPLN TOP BID Scheduled PRN Albuterol Sulfate (Proair Respiclick), 2 PUFFS INH Q4H PRN for SOB/Wheezing Ipratropium-Albuterol (Duoneb), 1 TREATMENT INH QID PRN for Coughing,WHZ or SOB Lorazepam (Ativan), 1 MG PO Q8 PRN for anxiety/agitation or sleep Nitroglycerin (Nitrostat), 0.4 MG UT UD PRN for Chest Pain Tramadol (Ultram), 50 MG PO BID PRN for Pain Current Inpatient Medications Current Inpatient Medications Medications (Trade) Dose Ordered Sig/Fatoumata Route Start Time Stop Time Status Last Admin Dose Admin Heparin Sodium (Porcine) (Heparin Sq 5000 Unit/0.5ml) 5,000 unit Q8H SQ 01/15/18 01:45 02/14/18 01:44 01/15/18 06:05 5,000 UNIT Acetaminophen (Tylenol Tab) 650 mg Q4H PRN PO 01/15/18 01:45 02/14/18 01:44 Ondansetron HCl (Zofran Inj) 4 mg Q6H PRN IV 01/15/18 01:45 02/14/18 01:44 Levalbuterol (Xopenex 1.25MG/ 0.5ML Neb) 1.25 mg Q4R INH 01/15/18 04:00 02/14/18 03:59 01/15/18 11:20 1.25 MG Ipratropium [place] (Atrovent 0.02% 0.5MG/2.5ML Neb) 0.5 mg Q4R INH 01/15/18 04:00 02/14/18 03:59 01/15/18 11:20 0.5 MG Miscellaneous Information (Icu Protocol For Hyperglycemia) 1 ea PRN PRN N/A 01/15/18 01:45 01/17/18 01:44 Methylprednisolone Sodium Succinate 60 mg/Syringe 0.96 ml @ 1.5 mls/min Q8H IV 01/15/18 08:00 02/14/18 07:59 01/15/18 08:14 1.5 MLS/MIN Aspirin (Ecotrin Tab) 81 mg DAILY PO 01/15/18 09:00 02/14/18 08:59 01/15/18 08:15 81 MG Atorvastatin Calcium (Lipitor Tab) 20 mg DAILY PO 01/15/18 09:00 02/14/18 08:59 01/15/18 08:14 20 MG Betamethasone/ Clotrimazole (Lotrisone Crm) 1 appln AMHS EXT 01/15/18 09:00 02/14/18 08:59 01/15/18 08:16 1 APPLN Ergocalciferol (Vitamin D Cap) 50,000 interunit MoWeFr@0900 PO 01/16/18 09:00 02/15/18 08:59 Folic Acid (Folvite Tab) 1 mg DAILY PO 01/15/18 09:00 02/14/18 08:59 01/15/18 08:15 1 MG Isosorbide Mononitrate (Imdur Ext Rel Tab) 60 mg DAILY PO 01/15/18 09:00 02/14/18 08:59 01/15/18 08:15 60 MG Ketoconazole (Nizoral 2% Crm) 1 appln BID EXT 01/15/18 09:00 01/25/18 08:59 01/15/18 08:16 1 APPLN Levothyroxine Sodium (Synthroid Tab) 200 mcg SuTuWeFrSa@0630 PO 01/15/18 06:30 02/14/18 06:29 01/15/18 06:05 200 MCG Levothyroxine Sodium (Synthroid Tab) 300 mcg MoTh@0630 PO 01/16/18 06:30 02/15/18 06:29 Lorazepam (Ativan Tab) 1 mg Q8 PRN PO 01/15/18 03:00 02/14/18 02:59 Metoprolol Tartrate (Lopressor Tab) 12.5 mg BID PO 01/15/18 09:00 02/14/18 08:59 01/15/18 08:16 12.5 MG Montelukast Sodium (Singulair Tab) 10 mg DAILY PO 01/15/18 09:00 02/14/18 08:59 01/15/18 08:16 10 MG Multivitamins (Multivitamin Tab) 1 tab DAILY PO 01/15/18 09:00 02/14/18 08:59 01/15/18 08:15 1 TAB Nitroglycerin (Nitrostat Tab) 0.4 mg UD PRN UT 01/15/18 03:00 02/14/18 02:59 Pantoprazole Sodium (Protonix Tab) 40 mg DAILY PO 01/15/18 09:00 02/14/18 08:59 01/15/18 08:15 40 MG Topiramate (Topamax Tab) 100 mg QAM PO 01/15/18 09:00 02/14/18 08:59 01/15/18 08:15 100 MG Topiramate (Topamax Tab) 200 mg HS PO 01/15/18 21:00 02/14/18 20:59 Tramadol HCl (Ultram Tab) 50 mg BID PRN PO 01/15/18 03:00 02/14/18 02:59 Miscellaneous Information (Order Awaiting Action) 1 ea QS N/A 01/15/18 08:00 02/14/18 07:59 Glucose (Glucose 40% Gel) 15-30 GRAMS 15 GRAMS... UD PRN PO 01/15/18 03:45 02/14/18 03:44 Glucose (Glucose Chew Tab) 4-8 Tablets 4 Tabl... UD PRN PO 01/15/18 03:45 02/14/18 03:44 Dextrose (Dextrose 50% 50ML Syringe) 25-50ML OF 50% DW IV FOR... UD PRN IV 01/15/18 03:45 02/14/18 03:44 Glucagon (Glucagon Inj) 1 mg UD PRN SQ 01/15/18 03:45 02/14/18 03:44 Ceftriaxone Sodium 1 gm/ Dextrose 50 ml @ 100 mls/hr Q24H IV 01/15/18 06:00 01/22/18 05:59 01/15/18 06:03 100 MLS/HR Azithromycin 500 mg/Dextrose 255 ml @ 125 mls/hr DAILY@0400 IV 01/16/18 04:00 01/21/18 06:03 Miscellaneous Information (Consult Glycemic Management Pharmacy) 1 ea UD PRN N/A 01/15/18 04:15 02/14/18 04:14 Oseltamivir Phosphate (Tamiflu Cap) 75 mg BID PO 01/15/18 09:00 01/20/18 08:59 01/15/18 06:30 75 MG Bupropion HCl (Wellbutrin Tab) 100 mg QAM PO 01/15/18 09:00 02/14/18 08:59 01/15/18 09:35 100 MG Bupropion HCl (Wellbutrin Tab) 200 mg DAILY@1600 PO 01/15/18 16:00 02/14/18 15:59 Insulin Human Regular 250 units/ Sodium Chloride 252.5 ml @ 0 mls/hr Q24H IV 01/15/18 09:30 02/14/18 09:29 01/15/18 09:40 4.7 MLS/HR Insulin Aspart (novoLOG ASPART) [facility] 01/15/18 12:00 02/14/18 11:59 Furosemide 40 mg/ Syringe 4 ml @ 4 mls/min Q8 IV 01/15/18 14:00 02/14/18 13:59 Review of Systems Constitutional: + chills, No fever, No sweats, No weight loss, No weakness, No fatigue, No problem reported Eyes: No worsening of vision, No eye pain, No redness, No discharge, No diplopia, No problem reported ENT: + problem reported (chronic tracheostomy tube in place.) Respiratory: + cough, + sputum, + wheezing, + shortness of breath Cardiovascular: No chest pain, No orthopnea, No PND, No edema, No claudication , No palpitations, No problem reported Abdomen: No pain, No nausea, No vomiting, No diarrhea, No constipation, No GI bleeding, No problem reported Genitourinary - Female: No dysuria, No urinary frequency, No urinary urgency, No urinary incontinence, No urinary retention, No hematuria, No dysmenorrhea, No menorrhagia, No metrorrhagia, No rash, No vaginal bleeding, No vaginal discharge, No vaginal itching, No vulvodynia, No , No problem reported Neurologic: No memory loss, No paralysis, No weakness, No numbness/tingling, No vertigo, No balance problems, No problem reported Psychiatric: No depression symptoms, No anhedonism, No anxiety, No insomnia, No substance abuse, No problem reported Physical Exam Date Time Temp Pulse Resp B/P (MAP) Pulse Ox O2 Delivery O2 Flow Rate FiO2 01/15/18 11:20 74 18 96 Trach Collar 10.0 40 01/15/18 10:01 77 18 136/66 (89) 95 Trach Collar 01/15/18 08:07 36.9 92 26 145/84 (104) 93 Trach Collar 01/15/18 08:00 Trach Collar 01/15/18 07:45 85 20 94 Trach Collar 10.0 01/15/18 06:16 37.2 86 24 121/65 (83) 94 BiPAP 35 01/15/18 05:48 85 91 35 01/15/18 04:30 94 BiPAP 36 01/15/18 03:50 37.1 87 26 117/72 (87) 94 BiPAP 35 01/15/18 02:33 38.0 107 26 135/84 94 BiPAP 35 01/15/18 02:21 91 21 93 BiPAP 35 01/15/18 02:17 107/62 01/15/18 02:06 89 21 93 BiPAP 35 01/15/18 02:01 144/71 01/15/18 01:51 91 26 95 BiPAP 35 01/15/18 01:46 112/76 01/15/18 01:36 92 34 96 BiPAP 35 01/15/18 01:31 93 31 107/63 94 BiPAP 35 01/15/18 01:16 92 35 125/75 96 BiPAP 35 01/15/18 01:11 95 28 96 BiPAP 35 01/15/18 00:56 95 31 95 BiPAP 35 01/15/18 00:51 125/70 01/15/18 00:41 101 37 96 BiPAP 35 01/15/18 00:36 98 29 92 BiPAP 35 01/15/18 00:21 100 33 93 BiPAP 35 01/15/18 00:20 95 92 35 01/15/18 00:16 138/85 01/15/18 00:14 101 34 97 BiPAP 35 01/15/18 00:10 188/110 01/15/18 00:07 107 01/15/18 00:03 96 Nebulizer 15.0 01/15/18 00:03 159/144 01/14/18 23:59 37.2 106 42 159/144 64 Room Air 01/14/18 23:59 65 Room Air 01/14/18 23:59 94 Room Air General Appearance: uncomfortable Head: normocephalic Eyes: PERRLA, EOMI ENT: other (trach site appears clean and appropriate.) Neck: normal range of motion, no stridor Respiratory: rhonchi, wheezing Cardiovasular: regular rate/rhythm, normal S1S2, no M/G/R, no murmur Abdomen: non tender, no masses, no guarding Edema: Bilateral LE (2+) Neuro: alert, oriented x 3, normal motor exam, normal sensation Psychiatric: normal affect Laboratory Results Last 24 Hours Test 01/15/18 00:05 01/15/18 00:26 01/15/18 00:40 01/15/18 03:00 White Blood Count 11.21 K/uL Red Blood Count 4.61 M/uL Hemoglobin 12.8 g/dL Hematocrit 40.7 % Mean Corpuscular Volume 88.3 fL Mean Corpuscular Hemoglobin 27.8 pg Mean Corpuscular Hemoglobin Concent 31.4 g/dl Platelet Count 219 K/uL Mean Platelet Volume 9.1 fL Neutrophils (%) (Auto) 63.8 % Lymphocytes (%) (Auto) 23.0 % Monocytes (%) (Auto) 12.0 % Eosinophils (%) (Auto) 0.0 % Basophils (%) (Auto) 0.2 % Neutrophils # (Auto) 7.15 K/uL Lymphocytes # (Auto) 2.58 K/uL Monocytes # (Auto) 1.35 K/uL Eosinophils # (Auto) 0.00 K/uL Basophils # (Auto) 0.02 K/uL RDW Standard Deviation 52.2 fL RDW Coefficient of Variation 16.1 % Immature Granulocyte % (Auto) 1.0 % Immature Granulocyte # (Auto) 0.11 K/uL Prothrombin Time 10.3 SECONDS Prothromb Time International Ratio 1.0 Sodium Level 131 mmol/L Potassium Level 4.2 mmol/L Chloride Level 96 mmol/L Carbon Dioxide Level 28 mmol/L Anion Gap 7.0 mmol/L 18.0 mmol/L Blood Urea Nitrogen 16 mg/dl Creatinine 1.48 mg/dl Estimated GFR () 43.8 Estimated GFR (Non- 37.8 BUN/Creatinine Ratio 10.6 Random Glucose 180 mg/dl Calcium Level 8.5 mg/dl Magnesium Level 2.0 mg/dl Total Bilirubin 0.5 mg/dl Aspartate Amino Transf (AST/SGOT) 57 U/L Alanine Aminotransferase (ALT/SGPT) 60 U/L Alkaline Phosphatase 142 U/L Troponin I < 0.015 ng/ml Pro-B-Type Natriuretic Peptide 112 pg/ml Total Protein 7.7 gm/dl Albumin 2.9 gm/dl Globulin 4.8 gm/dl Albumin/Globulin Ratio 0.6 Bedside Hemoglobin 15.0 g/dl Bedside Hematocrit 44 % Bedside Sodium 132 mEq/L Bedside Potassium 4.3 mEq/L Bedside Chloride 94 mEq/L Bedside Total CO2 26 mEq/l Bedside Blood Urea Nitrogen 16 mg/dl Bedside Creatinine 1.4 mg/dl Bedside Glucose 161 mg/dl Bedside Glucose (other) 184 mg/dl Bedside Ionized Calcium (Enedelia) 1.23 mmol/l Bedside Blood Gas pH (LAB) 7.27 Bedside Blood Gas pCO2 (LAB) 58 mmHg Bedside Blood Gas pO2 (LAB) 69 mmHg Bedside Blood Gas HCO3 (LAB) 27 meq/L Bedside Blood Gas Total CO2 28 mEq/l Bedside Blood Gas Base Excess (LAB) 0.0 meq/L Bedside Blood Gas O2 Saturation 91.0 % Influenza Type A (RT-PCR) POS for Influ A Influenza Type B (RT-PCR) Neg for Influ B Test 01/15/18 03:36 01/15/18 04:20 01/15/18 05:54 01/15/18 08:54 Bedside Glucose 194 mg/dl 207 mg/dl Urine Color YELLOW Urine Appearance CLOUDY Urine pH 6.0 Urine Specific [place] 1.016 Urine Protein TRACE Urine Glucose (UA) NEG Urine Ketones NEG Urine Occult Blood 2+ Urine Nitrite POS Urine Bilirubin NEG Urine Urobilinogen NEG Urine Leukocyte Esterase MODERATE Urine WBC (Auto) >30 /hpf Urine RBC (Auto) 5-10 /hpf Urine Hyaline Casts (Auto) 1-5 /lpf Urine Epithelial Cells (Auto) 5-10 /lpf Urine Bacteria (Auto) 1+ White Blood Count 6.56 K/uL Red Blood Count 4.50 M/uL Hemoglobin 12.6 g/dL Hematocrit 39.4 % Mean Corpuscular Volume 87.6 fL Mean Corpuscular Hemoglobin 28.0 pg Mean Corpuscular Hemoglobin Concent 32.0 g/dl RDW Standard Deviation 51.7 fL RDW Coefficient of Variation 16.0 % Platelet Count 190 K/uL Mean Platelet Volume 9.1 fL Sodium Level 131 mmol/L Potassium Level 4.7 mmol/L Chloride Level 97 mmol/L Carbon Dioxide Level 27 mmol/L Anion Gap 7.0 mmol/L Blood Urea Nitrogen 16 mg/dl Creatinine 1.28 mg/dl Est Creatinine Clear Calc Drug Dose 77.0 ml/min Estimated GFR () 52.2 Estimated GFR (Non- 45.1 BUN/Creatinine Ratio 12.7 Random Glucose 241 mg/dl Calcium Level 8.5 mg/dl Magnesium Level 2.2 mg/dl Troponin I 0.041 ng/ml Thyroid Stimulating Hormone (TSH) 0.156 uIu/ml Free Thyroxine 1.60 ng/dl Test 01/15/18 10:41 Bedside Glucose 225 mg/dl Diagnostic Results Labs are consistent with leukocytosis, chest x-ray showed only small lung volume. I did not appreciate any infiltrate. Heart examination on the film showed thyromegaly. Assessment & Plan #1 influenza A bronchitis exacerbating her COPD. #2 COPD exacerbation. #3 morbid obesity with obstructive sleep apnea status post tracheostomy tube with Christophe trach #6 has been in for the past 8 years. #4 acute on chronic hypercapnic respiratory failure. #5 diabetes. #6 hypertension and hypothyroidism and hyperlipidemia. Plan: #1 agree with your current management. #2 I will start the patient on Lasix 40 mg IV every 8 hours. I suspect the patient had cor pulmonale as well. #3 I will restrict her fluids to 1500 mL orally per day. #4 the patient can be eating and orally without difficulty. #5 continue with current dose of Solu-Medrol as well as bronchodilators. #6 no value of placing the patient on BiPAP. #7 no need to change the tracheostomy tube to a cuffed one at this point as she would not need the ventilator. #8 the patient with a pH of 7.27 but she is mentating very well and does not have any respiratory issues. I will keep it in that range without adjusting to a ventilator. #9 glucose control. #10 strict I's and O's. #11 discussed with the staff on rounds and details. #12 DVT and GI prophylaxis. #13 critical care time spent with the patient including discussion with Dr. Blanton was 45 minutes. #14 patient can be dispositioned to respiratory floor if okay with Dr. baez. Thank you
--- NOTE | 2018-01-15 11:45 | ECHOCARDIOGRAM REPORT ---
*NOTICE TO RECEIVING REPUBLICAN AGENCY This information is strictly Confidential and protected under [place] law. [place] law prohibits you from making any further disclosure of this information unless further disclosure is expressly permitted by the written consent of the person to whom it pertains or is authorized by law. A general authorization for the release of medical or other information is not sufficient for this purpose. Hospital accepts no responsibility if the information is made available to any other person, INCLUDING THE PATIENT. Interpretation Summary * Name: ANN JACKSON Study Date: 01/15/2018 10:04 AM BP: 121/65 mmHg * Patient Location: .MSICU\S\E103\S\1 HR: 86 * : 1955 (M/d/yyyy) Gender: Female Height: 62 in * Age: 62 yrs Ethnicity: [place] Weight: 416 lb * Ordering Physician: Nancie Blanton * Referring Physician: Self, Referred * Performed By: Enzo Ross RDCS * * Reason For Study: CHF * BSA: 2.6 m2 * The study was technically difficult. * The study was technically limited. * -- Conclusions -- * The right ventricle is at least mildly enlarged on limited visualization, with mild to moderate RV hypokinesis. * Left ventricular systolic function is normal. * Ejection Fraction = 55-60%. * Grade I diastolic dysfunction, (abnormal relaxation pattern). * The tricuspid regurgitation envelope was inadequate to allow calculation of the pulmonary artery systolic pressure. Procedure Details * A complete two-dimensional transthoracic echocardiogram was performed (2D, M-mode, Doppler and color flow Doppler). * The study was technically limited. * There are technical limitations to the patient's body habitus, poor positioning and breathing difficulty. * A contrast injection of Definity was performed to improve assessment of LV function. * Contrast was injected into an intravenous site in the left arm. * One vial of Definity ultrasound contrast was diluted in normal saline to a total volume of 10 ml. A total of '4' ml of solution was administered during imaging. * Lot # [id number] of Definity utilized for procedure. * Expiration date . * The attending nurse who injected the contrast agent was GOYO Jensen. Left Ventricle * The left ventricle is normal in size. * There is mild concentric left ventricular hypertrophy. * Left ventricular systolic function is normal. * Ejection Fraction = 55-60%. * The left ventricular wall motion is normal. Right Ventricle * The right ventricle is at least mildly enlarged on limited visualization, with mild to moderate RV hypokinesis. Atria * The left atrium is mildly dilated. * Right atrial size is normal. * There is no evidence of atrial septal defect, but resolution does not allow assessment for a patent foramen ovale. Mitral Valve * The mitral valve is not well visualized. * There is no mitral valve stenosis. * Significant mitral regurgitation is absent. Tricuspid Valve * The tricuspid valve is not well visualized. * There is no tricuspid stenosis. * Significant tricuspid regurgitation is absent. Aortic Valve * The aortic valve is not adequately visualized. There is no evidence of aortic stenosis or significant aortic regurgitation on Doppler assessment. Pulmonic Valve * The pulmonary valve is not well seen, but the Doppler examination is normal without significant regurgitation or stenosis. Great Vessels * The aortic root is normal size. * The proximal ascending aorta was not visualized well enought to allow measurement. Pericardium/Pleural * There is no pericardial effusion. Great Vessels * Normal inferior vena cava diameter and respiratory variation suggests normal central venous pressure. Left Ventricular Diastolic Function * Grade I diastolic dysfunction, (abnormal relaxation pattern). MMode 2D Measurements and Calculations IVSd 1.5 cm IVSs 1.8 cm LVIDd 5.0 cm LVIDs 3.2 cm LVPWd 1.5 cm LVPWs 2.3 cm IVS/LVPW 10 FS 34.6 % EDV(Teich) 115.9 ml ESV(Teich) 42.3 ml EF(Teich) 63.5 % EDV(cubed) 121.8 ml ESV(cubed) 34.1 ml EF(cubed) 72.0 % % IVS thick 19.0 % % LVPW thick 49.2 % LV mass(C)d 327.3 grams LV mass(C)dI 125.4 grams/m\S\2 LV mass(C)s 301.1 grams LV mass(C)sI 115.4 grams/m\S\2 SV(Teich) 73.6 ml SI(Teich) 28.2 ml/m\S\2 SV(cubed) 87.8 ml SI(cubed) 33.6 ml/m\S\2 EPSS 0.91 cm Ao root diam 3.3 cm Ao root area 8.6 cm\S\2 ACS 2.0 cm LA dimension 4.3 cm asc Aorta Diam 3.4 cm LA/Ao 1.3 LVOT diam 2.2 cm LVOT area 3.7 cm\S\2 Doppler Measurements and Calculations MV E max joey 59.4 cm/sec MV A max joey 73.9 cm/sec MV E/A 0.80 MV dec time 0.17 sec Ao V2 max 116.3 cm/sec Ao max PG 5.4 mmHg Ao max PG (full) 2.4 mmHg JAIME(V,A) 2.7 cm\S\2 JAIME(V,D) 2.7 cm\S\2 LV V1 max PG 3.0 mmHg LV V1 max 86.1 cm/sec PA V2 max 101.8 cm/sec PA max PG 4.1 mmHg PA acc slope 535.1 cm/sec\S\2 PA acc time 0.15 sec PA pr(Accel) 12.3 mmHg
[2018-01-15] MEDS: INSULIN ASPART 100 UNITS/ML 3 ML PEN SC SCH ×3 (11:51→22:52)
[2018-01-15] MEDS ORDERED: INSULIN GLARGINE SOLOSTAR 100 UNITS/ML 3 ML PEN SC ONE (12:15)
--- NOTE | 2018-01-15 13:54 | Pharmacy Progress Note ---
Glycemic Control Intl Consult Date of Service Jan 15, 2018. Scope Glycemic Pharmacist consulted by Dr Blanton on 01/15/18 for glycemic control and to write orders per [facility] inpatient glycemic control protocol Objective Weight (Kilograms): 189.100 Accuchecks BSG (last 24hrs): Test 01/15/18 00:05 01/15/18 00:26 01/15/18 03:36 01/15/18 05:54 Random Glucose 180 mg/dl (70-99) Bedside Glucose 161 mg/dl (70-90) 194 mg/dl (70-90) 207 mg/dl (70-90) Test 01/15/18 08:54 01/15/18 10:41 01/15/18 11:45 01/15/18 12:43 Random Glucose 241 mg/dl (70-99) Bedside Glucose 225 mg/dl (70-90) 212 mg/dl (70-90) 228 mg/dl (70-90) Laboratory Data (last 24hrs) Test 01/15/18 00:05 01/15/18 00:26 01/15/18 08:54 Anion Gap 7.0 mmol/L 18.0 mmol/L 7.0 mmol/L BUN/Creatinine Ratio 10.6 12.7 Blood Urea Nitrogen 16 mg/dl 16 mg/dl Creatinine 1.48 mg/dl 1.28 mg/dl Potassium Level 4.2 mmol/L 4.7 mmol/L Sodium Level 131 mmol/L 131 mmol/L White Blood Count 11.21 K/uL 6.56 K/uL Red Blood Count 4.61 M/uL Hemoglobin 12.8 g/dL Hematocrit 40.7 % Mean Corpuscular Volume 88.3 fL Mean Corpuscular Hemoglobin 27.8 pg Mean Corpuscular Hemoglobin Concent 31.4 g/dl Platelet Count 219 K/uL Mean Platelet Volume 9.1 fL Neutrophils (%) (Auto) 63.8 % Lymphocytes (%) (Auto) 23.0 % Monocytes (%) (Auto) 12.0 % Eosinophils (%) (Auto) 0.0 % Basophils (%) (Auto) 0.2 % Neutrophils # (Auto) 7.15 K/uL Lymphocytes # (Auto) 2.58 K/uL Monocytes # (Auto) 1.35 K/uL Eosinophils # (Auto) 0.00 K/uL Basophils # (Auto) 0.02 K/uL HbA1c Test 01/15/18 08:54 Recent Pertinent Medications Outpatient Anti-diabetic Regimen: * Lantus 75 units twice daily plus Humalog pump The patient is currently receiving: * Basal insulin: Lantus 25 units x 1 dose * Correctional Insulin: Novolog Correction per scale ACHS Goal Range: Low 110 mg/dL - High 180 mg/dL Correction Factor: 10 mg/dL/unit * Prandial insulin: Per carb ratio of 1 unit per 4 grams CHO consumed Risk Factors for Insulin Resistance: * Steroids: Solu-Medrol 125 mg x 1 then 60 mg IV q8 hours * Infection: Rocephin, Tamiflu, and Azithromycin PO * Diet: NPO changed to T2DM Assessment & Plan ASSESSMENT: * Ms Connelly is a 62 y/o F with a PMH of COPD on recent steroids, anxiety, CKD stage 2, RASHAAD, and type 2 diabetes with unknown control (goal HbA1C is 7.6-8.0% per the Elements of Diabetes Care Scoring Guide). She is admitted today with COPD exacerbation and flu positive. The patient received her home Lantus 75 units prior to admission but she is currently NPO with high dose steroids. * A previous admission in December of 2016 mimicked a similar situation. At that point the patient was on an insulin pump with a basal of 6.5 units/hr (or 150 units daily) and a carbohydrate ratio of 2. Blood sugars appeared reasonably controlled. Since the patient is on higher doses of steroids than last time and the patient does not have an insulin pump, an insulin infusion is currently being utilized. * For basal insulin, gave an additional 50 units this morning for a total of 75 units this morning. Continue Lantus 75 units twice daily (50 units if blood sugar less than 120 mg/dL) as this appeared affective previously. * The patient was ordered a diet for lunch today. Fixed a carbohydrate ratio of 3 for this and will fix a carbohydrate ratio of 2 for future meals. Will enter order to d/c insulin infusion when blood sugar less than 180 mg/dL x 2 plus infusion rate less than 2 units/hr. Concurrently utilizing infusion to account for hyperglycemia with Solu-Medrol. PLAN FOR INPATIENT GLYCEMIC CONTROL: * Starting IV insulin infusion per moderate (moderate/severe) stress protocol * Goal Range 100 - 200 mg/dl * In the critical care setting, continuous IV insulin infusion has been shown to be the best method for achieving glycemic targets. * Basal insulin with LANTUS 75 units SQ BID (give 50 units if blood sugar less than 120 mg/dL) * Correctional Insulin with NOVOLOG / REGULAR per scale ACHS or Q6hrs while NPO * Goal Range: Low 100 mg/dL - High 200 mg/dL * Correction Factor: -- mg/dL/unit * Nutritional / Prandial insulin per carb ratio of 1 unit per 2 grams CHO consumed * If insulin infusion discontinued, please use correction factor of 7 mg/dL/unit * Please note that the plan above was derived based on current level of insulin resistance and hospital stress. These recommendations are appropriate for inpatient admission only. Plan of care upon discharge will need to be reassessed to avoid potential outpatient hypo/hyperglycemia. Thank you.
[2018-01-15] MEDS: FUROSEMIDE INJ 40 MG in SYRINGE 0 ML IV SCH ×2 (13:58→22:56)
[2018-01-15] MEDS: INSULIN GLARGINE SOLOSTAR 100 UNITS/ML 3 ML PEN SC SCH (20:42)
[2018-01-16] VITALS (11 sets, daily range): BP systolic 126–138; BP diastolic 67–78; PULSE 72–81; TEMP 36.5–36.7; O2SAT 95–100; Ht 157.5 cm; Wt 159.5 kg
[2018-01-16] MEDS: METHYLPREDNISOLONE IV 60 MG in SYRINGE 0 ML IV SCH ×3 (02:55→16:56)
[2018-01-16] MEDS: LEVALBUTEROL 1.25MG/0.5ML NEB INH SCH ×7 (04:00→23:06)
[2018-01-16] MEDS ORDERED: AZITHROMYCIN IV 500 MG in DEXTROSE 5% 250ML 250 ML IV SCH (04:00)
[2018-01-16] MEDS: IPRATROPIUM BROMIDE NEB SOLN 0.02% 2.5 ML VIAL INH SCH ×7 (04:00→23:06)
[2018-01-16 05:32] LABS: BASO % 0.1 %; BASO ABS # 0.01 K/uL (0-0.2); HEMATOCRIT 38.3 % (37-47); HEMOGLOBIN 11.9 g/dL (12.0-16.0); IG# 0.05 K/uL (0.00-0.02); LYMPH % 12.8 %; LYMPH ABS # 1.01 K/uL (1.2-3.4); MEAN CELL VOLUME 88.7 fL (80-100); MEAN CORPUSCULAR HEMOGLOBIN 27.5 pg (25-34); MEAN CORPUSCULAR HGB CONC 31.1 g/dl (32-36); MEAN PLATELET VOLUME 8.7 fL (7.4-10.4); MONO % 9.8 %; MONO ABS # 0.77 K/uL (0.11-0.59); NEUT % 76.7 %; NEUT ABS # 6.03 K/uL (1.4-6.5); PLATELET COUNT 183 K/uL (130-400); RED CELL DISTRIBUTION WIDTH CV 15.9 % (11.5-14.5); RED CELL DISTRIBUTION WIDTH SD 51.5 fL (36.4-46.3); WHITE BLOOD COUNT 7.87 K/uL (4.8-10.8)
[2018-01-16] MEDS: CEFTRIAXONE SOD INJ 1 GM in DEXTROSE 5% ADD-VANTAGE 50ML 50 ML IV SCH (05:49)
[2018-01-16] MEDS: LEVOTHYROXINE 150 MCG TAB PO SCH (05:49)
[2018-01-16] MEDS: FUROSEMIDE INJ 40 MG in SYRINGE 0 ML IV SCH ×3 (05:49→21:07)
[2018-01-16] MEDS: HEPARIN SOD 5000 UNIT/0.5 ML CARP SQ SCH ×3 (05:57→21:13)
[2018-01-16 06:00] LABS: CALCIUM 8.7 mg/dl (8.5-10.1); CREATININE 1.43 mg/dl (0.60-1.20); PHOSPHORUS 3.2 mg/dl (2.5-4.9); POTASSIUM 4.5 mmol/L (3.5-5.1)
[2018-01-16 07:11] LABS: HEMOGLOBIN A1C 8.5 % (4.5-5.6)
--- NOTE | 2018-01-16 07:21 | DIAGNOSTIC IMAGING REPORT ---
CHEST ONE VIEW PORTABLE CLINICAL HISTORY: 62 years-old Female presenting with Respiratory failure. TECHNIQUE: Portable upright AP view of the chest was obtained. COMPARISON: 01/15/2018. FINDINGS: Tracheostomy tube remains in place. Cardiac silhouette moderately enlarged, unchanged. Pulmonary vascular prominence persists. Bronchial wall thickening. Hazy bibasilar opacities. No large pneumothorax. Small bilateral pleural effusions are difficult to exclude. The examination is limited by portable technique and patient body habitus. IMPRESSION: 1. Cardiomegaly with suggestion of volume overload and mild pulmonary edema. Differential considerations include aspiration or infection. 2. Small pleural effusions may also be present. Electronically signed by: Solomon Browning M.D. 01/16/2018 7:20 AM Dictated Date/Time: 01/16/2018 7:18 AM
[2018-01-16] MEDS: INSULIN GLARGINE SOLOSTAR 100 UNITS/ML 3 ML PEN SC SCH ×2 (08:50→21:13)
[2018-01-16] MEDS: INSULIN ASPART 100 UNITS/ML 3 ML PEN SC SCH ×4 (08:52→21:00)
[2018-01-16] MEDS: PANTOprazole SOD 40 MG TAB PO SCH (08:54)
[2018-01-16] MEDS: ATORVASTATIN 20 MG TAB PO SCH (08:54)
[2018-01-16] MEDS: MONTELUKAST SOD 10 MG TAB PO SCH (08:54)
[2018-01-16] MEDS: METOPROLOL TARTRATE 25 MG TAB PO SCH ×2 (08:54→21:08)
[2018-01-16] MEDS: ISOSORBIDE MONONITRATE 60 MG TABCR PO SCH (08:54)
[2018-01-16] MEDS: ERGOCALCIFEROL 50,000 INTER.UNIT CAP PO SCH (08:55)
[2018-01-16] MEDS: CLOTRIMAZOLE/BETAMETHASONE CR 15 GM TUBE EXT SCH ×2 (08:55→21:09)
[2018-01-16] MEDS: TOPIRAMATE 100 MG TAB PO SCH ×2 (08:55→21:05)
[2018-01-16] MEDS: MULTIVITAMIN TAB PO SCH (08:55)
[2018-01-16] MEDS: AZITHROMYCIN 250 MG TAB PO SCH (08:56)
[2018-01-16] MEDS: ASPIRIN 81 MG ECTAB PO SCH (08:56)
[2018-01-16] MEDS: OSELTAMIVIR PHOSPHATE 75 MG CAP PO SCH ×2 (08:56→21:06)
[2018-01-16] MEDS: CLARINEX~ORDER AWAITING ACTION SCH ×3 (08:57→16:00)
[2018-01-16] MEDS: KETOCONAZOLE 2% CR 15 GM TUBE EXT SCH ×2 (08:58→21:08)
[2018-01-16] MEDS: INSULIN REGULAR 250 UNITS in SODIUM CHLORIDE 0.9% 250ML 250 ML IV SCH (09:14)
--- NOTE | 2018-01-16 11:54 | Progress Note ---
Internal Med Progress Note Date of Service: Jan 16, 2018. Provider Documentation: SUBJECTIVE: The patient was seen and examined Admitted with more SOB and Influenza A Some complains of SOB -syas not any better No pain,nausea and or vomiting OBJECTIVE: Vital Signs-as noted below Exam: General-Minimal distress at rest Morbidly Obese Eyes-Normal ENT-normal Neck-supple has tracheostomy tube in place Lungs-decreased breath sound bilaterally Heart-Regular,No murmur appreciated Abdomen-Benign,no masses,bowel sound present Extremities-Chronic Edema bilaterally Neuro-AAOx3 Lab data as noted below. ASSESSMENT & PLAN: ACUTE ON CHRONIC RESPIRATORY FAILURE: Complicated by Influenza A;Exacerbation of COPD -multifactorial secondary to obstructive sleep apnea and likely obesity hypoventilation syndrome and COPD exacerbation -patient has a tracheostomy secondary to the above -appreciate Language Translator input -POC blood gas showed pH: 7.27, CO2 58, O2 69 , Bicarb 27 :: Has Chronic hypercarbic respiratory failure -CXR negative for opacity but limited due to body habitus -continued on bronchodilators and nebulized treatment -continue IV steroids -continue with ceftriaxone + azithro -sputum, blood, and urine cultures -Bipap as needed; was placed over the mouth/nose as patient trach did not seem to have a method of direct connection to bipap -A little worse today Has Tracheostomy tube in place Management as directed Continue periodic suction Patient knows how to clean it HYPOTHYROIDISM: -check TSH and free T4 -TSH is mildly low but free T4 -normal -continue patient on levothyroxine. DM TYPE II: -at home was maintained on high doses of Lantus and an insulin pump. 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 GERD: -continue with Protonix. MIGRAINES: -continue with Topamax. ANXIETY/DEPRESSION: -stable -continue on her home medications. Vital Signs: Date Time Temp Pulse Resp B/P (MAP) Pulse Ox O2 Delivery O2 Flow Rate FiO2 01/16/18 11:23 79 18 99 Trach Collar 10.0 40 01/16/18 08:00 36.5 80 24 128/78 (95) 96 Trach Collar 10.0 40 01/16/18 07:12 77 18 97 Trach Collar 10.0 40 01/16/18 03:45 79 18 100 Trach Collar 10.0 40 01/16/18 03:41 36.6 80 24 132/67 (88) 97 Trach Collar 10.0 40 01/15/18 23:46 36.5 79 24 124/76 (92) 99 Trach Collar 10.0 40 01/15/18 23:00 86 18 98 Trach Collar 10.0 40 01/15/18 20:07 36.3 80 22 123/77 (92) 97 Humidified Oxygen Trach Collar 01/15/18 19:42 68 18 96 Trach Collar 10.0 40 01/15/18 16:01 36.9 67 19 97/54 (68) 96 Trach Collar 40 01/15/18 16:00 Trach Collar 40 01/15/18 15:01 76 23 118/66 (83) 98 Trach Collar 40 01/15/18 14:37 79 18 96 Trach Collar 10.0 40 01/15/18 14:01 77 16 125/76 (92) 94 Trach Collar 40 01/15/18 13:02 80 18 152/73 (99) 93 Trach Collar 40 01/15/18 12:01 36.6 72 14 124/71 (88) 93 Trach Collar 40 01/15/18 12:00 Trach Collar 40 Lab Results: Results Past 24 Hours Test 01/15/18 12:43 01/15/18 13:51 01/15/18 14:44 01/15/18 15:50 Range/Units Bedside Glucose 228 248 226 186 70-90 mg/dl Test 01/15/18 16:41 01/15/18 17:28 01/15/18 17:48 01/15/18 18:42 Range/Units Bedside Glucose 199 198 198 70-90 mg/dl Troponin I < 0.015 0-0.045 ng/ml Test 01/15/18 19:56 01/15/18 21:41 01/15/18 23:45 01/16/18 01:45 Range/Units Bedside Glucose 193 186 187 168 70-90 mg/dl Test 01/16/18 03:40 01/16/18 05:21 01/16/18 06:39 01/16/18 10:52 Range/Units Bedside Glucose 162 145 211 70-90 mg/dl White Blood Count 7.87 4.8-10.8 K/uL Red Blood Count 4.32 4.2-5.4 M/uL Hemoglobin 11.9 12.0-16.0 g/dL Hematocrit 38.3 37-47 % Mean Corpuscular Volume 88.7 80-100 fL Mean Corpuscular Hemoglobin 27.5 25-34 pg Mean Corpuscular Hemoglobin Concent 31.1 32-36 g/dl Platelet Count 183 130-400 K/uL Mean Platelet Volume 8.7 7.4-10.4 fL Neutrophils (%) (Auto) 76.7 % Lymphocytes (%) (Auto) 12.8 % Monocytes (%) (Auto) 9.8 % Eosinophils (%) (Auto) 0.0 % Basophils (%) (Auto) 0.1 % Neutrophils # (Auto) 6.03 1.4-6.5 K/uL Lymphocytes # (Auto) 1.01 1.2-3.4 K/uL Monocytes # (Auto) 0.77 0.11-0.59 K/uL Eosinophils # (Auto) 0.00 0-0.5 K/uL Basophils # (Auto) 0.01 0-0.2 K/uL RDW Standard Deviation 51.5 36.4-46.3 fL RDW Coefficient of Variation 15.9 11.5-14.5 % Immature Granulocyte % (Auto) 0.6 % Immature Granulocyte # (Auto) 0.05 0.00-0.02 K/uL Sodium Level 136 136-145 mmol/L Potassium Level 4.5 3.5-5.1 mmol/L Chloride Level 101 98-107 mmol/L Carbon Dioxide Level 33 21-32 mmol/L Anion Gap 2.0 3-11 mmol/L Blood Urea Nitrogen 21 7-18 mg/dl Creatinine 1.43 0.60-1.20 mg/dl Est Creatinine Clear Calc Drug Dose 68.9 ml/min Estimated GFR () 45.7 Estimated GFR (Non- 39.4 BUN/Creatinine Ratio 14.6 10-20 Random Glucose 144 70-99 mg/dl Calcium Level 8.7 8.5-10.1 mg/dl Phosphorus Level 3.2 2.5-4.9 mg/dl Magnesium Level 2.4 1.8-2.4 mg/dl
[2018-01-16] MEDS ORDERED: NURSING VERBAL MED ORDER ONE (12:00)
--- NOTE | 2018-01-16 15:21 | PULMONARY PROGRESS NOTE ---
DATE: 01/16/2018 TIME: 02:40 p.m. SUBJECTIVE: The patient continues to feel short of breath, although she feels it might be slightly better than yesterday. She is still coughing. She feels that overall her cough is about the same. There has been no major change since admission in that. OBJECTIVE: GENERAL: The patient is comfortable. She is cooperative, alert and oriented. She was sitting in a chair. VITAL SIGNS: Temperature is 36.5. She has not had a fever with the exception of the 38 degree temperature at the time of admission. The patient is markedly obese. Weight is 189.1 kilograms. The heart rate was 79 per minute. The rhythm was regular. Blood pressure 138/73. ENT: Tracheostomy tube is in place. ENT exam is otherwise unremarkable. LUNGS: Auscultation of the lung hale revealed wheezes bilaterally heard best on the anterior portions. Posteriorly, she sounded better, although the breath sounds were decreased. Her oxygen saturation is 99%. She is on 10-liter trach collar. ABDOMEN: Markedly obese. Bowel sounds are present. EXTREMITIES: Showed edema +1 to +2, which for the most part was nonpitting. There is one blood culture positive for gram positive cocci. Sensitivities are still pending. The second blood culture obtained at the same time thus far is negative. LABORATORY DATA: White count of 7.87. Hemoglobin is 11.9. Platelets 183,000. Flu test was positive for influenza A. Blood gas done on admission showed a pH of 7.27 with a pCO2 of 58 and a pO2 of 69. This was done on a nonspecified amount of oxygen. Electrolytes show sodium 136, potassium 4.5, chloride 101, and bicarbonate 33. BUN was 21 with a creatinine of 1.43. IMPRESSIONS: 1. Respiratory failure -- acute on chronic with hypoxia and hypercarbia. 2. Chronic obstructive pulmonary disease exacerbation. 3. Influenza A. 4. Morbid obesity. RECOMMENDATIONS: 1. Would adjust the patient's oxygen only to keep her saturations between 88% and 92%. This would be helpful in light of her severe hypercarbia. It may stimulate ventilation. 2. Agree with azithromycin. 3. Agree with methylprednisolone. Currently, this is at 60 mg q. 8 hours. Hopefully, can taper the dose tomorrow if she improves. 4. Agree with ceftriaxone. 5. Agree with levalbuterol and ipratropium every 4 hours.
[2018-01-17] VITALS (12 sets, daily range): BP systolic 124–160; BP diastolic 68–82; PULSE 74–89; TEMP 36.4–36.7; O2SAT 90–99
[2018-01-17] MEDS: METHYLPREDNISOLONE IV 60 MG in SYRINGE 0 ML IV SCH ×2 (00:17→08:00)
[2018-01-17] MEDS: IPRATROPIUM BROMIDE NEB SOLN 0.02% 2.5 ML VIAL INH SCH ×6 (03:17→23:08)
[2018-01-17] MEDS: LEVALBUTEROL 1.25MG/0.5ML NEB INH SCH ×6 (03:17→23:08)
[2018-01-17] MEDS: CEFTRIAXONE SOD INJ 1 GM in DEXTROSE 5% ADD-VANTAGE 50ML 50 ML IV SCH (06:25)
[2018-01-17] MEDS: FUROSEMIDE INJ 40 MG in SYRINGE 0 ML IV SCH ×3 (06:26→21:23)
[2018-01-17] MEDS: HEPARIN SOD 5000 UNIT/0.5 ML CARP SQ SCH ×3 (06:31→21:26)
[2018-01-17] MEDS: LEVOTHYROXINE 200 MCG TAB PO SCH (06:42)
[2018-01-17 07:11] LABS: BASO % 0.3 %; BASO ABS # 0.02 K/uL (0-0.2); HEMATOCRIT 40.5 % (37-47); HEMOGLOBIN 12.4 g/dL (12.0-16.0); IG# 0.04 K/uL (0.00-0.02); LYMPH % 17.8 %; LYMPH ABS # 1.34 K/uL (1.2-3.4); MEAN CELL VOLUME 89.8 fL (80-100); MEAN CORPUSCULAR HEMOGLOBIN 27.5 pg (25-34); MEAN CORPUSCULAR HGB CONC 30.6 g/dl (32-36); MONO % 11.4 %; MONO ABS # 0.86 K/uL (0.11-0.59); NEUT ABS # 5.26 K/uL (1.4-6.5); PLATELET COUNT 231 K/uL (130-400); RED CELL DISTRIBUTION WIDTH CV 15.7 % (11.5-14.5); WHITE BLOOD COUNT 7.52 K/uL (4.8-10.8)
[2018-01-17 07:44] LABS: CALCIUM 9.1 mg/dl (8.5-10.1); CREATININE 1.26 mg/dl (0.60-1.20); PHOSPHORUS 3.3 mg/dl (2.5-4.9); POTASSIUM 4.1 mmol/L (3.5-5.1)
[2018-01-17] MEDS: CLARINEX~ORDER AWAITING ACTION SCH ×3 (07:54→15:10)
[2018-01-17] MEDS: TOPIRAMATE 100 MG TAB PO SCH ×2 (08:20→21:19)
[2018-01-17] MEDS: ASPIRIN 81 MG ECTAB PO SCH (08:21)
[2018-01-17] MEDS: MONTELUKAST SOD 10 MG TAB PO SCH (08:21)
[2018-01-17] MEDS: AZITHROMYCIN 250 MG TAB PO SCH (08:21)
[2018-01-17] MEDS: OSELTAMIVIR PHOSPHATE 75 MG CAP PO SCH ×2 (08:21→21:19)
[2018-01-17] MEDS: PANTOprazole SOD 40 MG TAB PO SCH (08:21)
[2018-01-17] MEDS: METOPROLOL TARTRATE 25 MG TAB PO SCH ×2 (08:21→21:19)
[2018-01-17] MEDS: MULTIVITAMIN TAB PO SCH (08:21)
[2018-01-17] MEDS: ISOSORBIDE MONONITRATE 60 MG TABCR PO SCH (08:22)
[2018-01-17] MEDS: ATORVASTATIN 20 MG TAB PO SCH (08:22)
[2018-01-17] MEDS: CLOTRIMAZOLE/BETAMETHASONE CR 15 GM TUBE EXT SCH ×2 (08:22→21:17)
[2018-01-17] MEDS: KETOCONAZOLE 2% CR 15 GM TUBE EXT SCH ×2 (08:23→21:17)
[2018-01-17] MEDS: INSULIN ASPART 100 UNITS/ML 3 ML PEN SC SCH ×4 (08:27→21:27)
[2018-01-17] MEDS: INSULIN GLARGINE SOLOSTAR 100 UNITS/ML 3 ML PEN SC SCH ×2 (08:28→21:27)
[2018-01-17] MEDS: INSULIN REGULAR 250 UNITS in SODIUM CHLORIDE 0.9% 250ML 250 ML IV SCH (10:23)
--- NOTE | 2018-01-17 10:25 | Progress Note ---
Medicine Progress Note Date & Time of Visit: Jan 17, 2018 at 09:54. Subjective Pt was seen and examined Sitting in chair with no distress Pt said that her breathing slightly improves She continues require oxygen supplement during the day Denies any chest pain, palpitation, dizziness and fever Objective Last 8 Hrs Date Time Temp Pulse Resp B/P (MAP) Pulse Ox O2 Delivery O2 Flow Rate FiO2 01/17/18 07:48 36.4 74 16 136/82 (100) 99 Trach Collar 01/17/18 07:10 75 20 97 Trach Collar 30 01/17/18 04:00 Trach Collar 01/17/18 03:59 36.6 74 20 127/79 (95) 93 Trach Collar 8.0 01/17/18 03:17 76 20 98 Trach Collar 8.0 30 Physical Exam: General- No acute distress Head- atraumatic Eyes- PERRL, EOMI ENT- oropharynx clear Neck- supple, no JVD Lungs- +wheezing Heart- regular rhythm; no murmur Abdomen- normal bowel sounds, soft Extremities- +Edema Neuro- alert, oriented x 3; PERRL, EOMI Skin- warm & dry Laboratory Results: Last 24 Hours Test 01/16/18 10:52 01/16/18 13:09 01/16/18 14:06 01/16/18 15:02 Bedside Glucose 211 mg/dl 179 mg/dl 163 mg/dl 148 mg/dl Test 01/16/18 16:04 01/16/18 18:24 01/16/18 19:58 01/17/18 00:01 Bedside Glucose 140 mg/dl 147 mg/dl 153 mg/dl 147 mg/dl Test 01/17/18 03:59 01/17/18 06:51 01/17/18 07:15 01/17/18 08:18 Bedside Glucose 139 mg/dl 137 mg/dl 158 mg/dl White Blood Count 7.52 K/uL Red Blood Count 4.51 M/uL Hemoglobin 12.4 g/dL Hematocrit 40.5 % Mean Corpuscular Volume 89.8 fL Mean Corpuscular Hemoglobin 27.5 pg Mean Corpuscular Hemoglobin Concent 30.6 g/dl Platelet Count 231 K/uL Mean Platelet Volume 9.0 fL Neutrophils (%) (Auto) 70.0 % Lymphocytes (%) (Auto) 17.8 % Monocytes (%) (Auto) 11.4 % Eosinophils (%) (Auto) 0.0 % Basophils (%) (Auto) 0.3 % Neutrophils # (Auto) 5.26 K/uL Lymphocytes # (Auto) 1.34 K/uL Monocytes # (Auto) 0.86 K/uL Eosinophils # (Auto) 0.00 K/uL Basophils # (Auto) 0.02 K/uL RDW Standard Deviation 52.0 fL RDW Coefficient of Variation 15.7 % Immature Granulocyte % (Auto) 0.5 % Immature Granulocyte # (Auto) 0.04 K/uL Sodium Level 136 mmol/L Potassium Level 4.1 mmol/L Chloride Level 97 mmol/L Carbon Dioxide Level 34 mmol/L Anion Gap 4.0 mmol/L Blood Urea Nitrogen 26 mg/dl Creatinine 1.26 mg/dl Est Creatinine Clear Calc Drug Dose 76.8 ml/min Estimated GFR () 53.3 Estimated GFR (Non- 45.9 BUN/Creatinine Ratio 20.7 Random Glucose 115 mg/dl Calcium Level 9.1 mg/dl Phosphorus Level 3.3 mg/dl Magnesium Level 2.3 mg/dl Date/Time Source Procedure Growth Status 01/16/18 20:00 Sputum Trach. Tube Suction Gram Stain - Final Resulted 01/16/18 20:00 Sputum Trach. Tube Suction Sputum Culture Pending Resulted Assessment & Plan ACUTE ON CHRONIC HYPERCAPNIC RESPIRATORY FAILURE Multifactorial secondary to obstructive sleep apnea vs obesity hypoventilation syndrome vs Infuenza A and COPD exacerbation Has a tracheostomy secondary to the above CXR on admission showed no airspace consolidation or large pleural effusion is identified. POC blood gas showed pH: 7.27, CO2 58, O2 69 , Bicarb 27 Repeat CXR showed cardiomegaly with suggestion of volume overload and mild pulmonary edema Continue on bronchodilators and nebulized treatment Will taper solumedrol to 40mg TID Continue ceftriaxone + azithro Sputum cx pending Case discussed with Pulmonary team Will add Mucinex Blood cx growth coag negative staph Urine cx growth gram negative Continue Bipap PRN, was placed over the mouth/nose as patient trach did not seem to have a method of direct connection to bipap Continue trach suctioning ECHO DONE The right ventricle is at least mildly enlarged on limited visualization, with mild to moderate RV hypokinesis. Left ventricular systolic function is normal. Ejection Fraction = 55-60%. Grade I diastolic dysfunction, (abnormal relaxation pattern). The tricuspid regurgitation envelope was inadequate to allow calculation of the pulmonary artery systolic pressure. HYPOTHYROIDISM: TSH 0.156 Free T4 WNL Continue levothyroxine. DM TYPE II: On high doses of Lantus and insulin pump. Recent Hba1c 8.5 on 01/15/18 Pharmacy on board for glycemic pharmacy On IV insulin managed by pharmacist CAD: Denies any chest pain Troponin negative On aspirin and statin Stable CKD STAGE III: Cr on admission 1.48 On lasix 40mg IV TID Creatine improves to 1.26 today Continue monitor BMP MORBID OBESITY: BMI: 76 has limited physical mobility high risk of further deconditioning; PT/OT when stablized DYSLIPIDEMIA: continue on statin. GERD: continue with Protonix. MIGRAINES: continue with Topamax. ANXIETY/DEPRESSION: stable continue on her home medications. DVT px on Heparin subq CODE STATUS FULL CODE Consultants: Pulmonary Current Inpatient Medications: Current Inpatient Medications Medications (Trade) Dose Ordered Sig/Fatoumata Route Start Time Stop Time Status Last Admin Dose Admin Heparin Sodium (Porcine) (Heparin Sq 5000 Unit/0.5ml) 5,000 unit Q8H SQ 01/15/18 01:45 02/14/18 01:44 01/17/18 06:31 5,000 UNIT Acetaminophen (Tylenol Tab) 650 mg Q4H PRN PO 01/15/18 01:45 02/14/18 01:44 Ondansetron HCl (Zofran Inj) 4 mg Q6H PRN IV 01/15/18 01:45 02/14/18 01:44 Levalbuterol (Xopenex 1.25MG/ 0.5ML Neb) 1.25 mg Q4R INH 01/15/18 04:00 02/14/18 03:59 01/17/18 07:09 1.25 MG Ipratropium [place] (Atrovent 0.02% 0.5MG/2.5ML Neb) 0.5 mg Q4R INH 01/15/18 04:00 02/14/18 03:59 01/17/18 07:09 0.5 MG Methylprednisolone Sodium Succinate 60 mg/Syringe 0.96 ml @ 1.5 mls/min Q8H IV 01/15/18 08:00 02/14/18 07:59 01/17/18 00:17 1.5 MLS/MIN Aspirin (Ecotrin Tab) 81 mg DAILY PO 01/15/18 09:00 02/14/18 08:59 01/17/18 08:21 81 MG Atorvastatin Calcium (Lipitor Tab) 20 mg DAILY PO 01/15/18 09:00 02/14/18 08:59 01/17/18 08:22 20 MG Betamethasone/ Clotrimazole (Lotrisone Crm) 1 appln AMHS EXT 01/15/18 09:00 02/14/18 08:59 01/17/18 08:22 1 APPLN Ergocalciferol (Vitamin D Cap) 50,000 interunit MoWeFr@0900 PO 01/16/18 09:00 02/15/18 08:59 01/16/18 08:55 50,000 INTERUNIT Folic Acid (Folvite Tab) 1 mg DAILY PO 01/15/18 09:00 02/14/18 08:59 01/17/18 08:22 1 MG Isosorbide Mononitrate (Imdur Ext Rel Tab) 60 mg DAILY PO 01/15/18 09:00 02/14/18 08:59 01/17/18 08:22 60 MG Ketoconazole (Nizoral 2% Crm) 1 appln BID EXT 01/15/18 09:00 01/25/18 08:59 01/17/18 08:23 1 APPLN Levothyroxine Sodium (Synthroid Tab) 200 mcg SuTuWeFrSa@0630 PO 01/15/18 06:30 02/14/18 06:29 01/17/18 06:42 200 MCG Levothyroxine Sodium (Synthroid Tab) 300 mcg MoTh@0630 PO 01/16/18 06:30 02/15/18 06:29 01/16/18 05:49 300 MCG Lorazepam (Ativan Tab) 1 mg Q8 PRN PO 01/15/18 03:00 02/14/18 02:59 Metoprolol Tartrate (Lopressor Tab) 12.5 mg BID PO 01/15/18 09:00 02/14/18 08:59 01/17/18 08:21 12.5 MG Montelukast Sodium (Singulair Tab) 10 mg DAILY PO 01/15/18 09:00 02/14/18 08:59 01/17/18 08:21 10 MG Multivitamins (Multivitamin Tab) 1 tab DAILY PO 01/15/18 09:00 02/14/18 08:59 01/17/18 08:21 1 TAB Nitroglycerin (Nitrostat Tab) 0.4 mg UD PRN UT 01/15/18 03:00 02/14/18 02:59 Pantoprazole Sodium (Protonix Tab) 40 mg DAILY PO 01/15/18 09:00 02/14/18 08:59 01/17/18 08:21 40 MG Topiramate (Topamax Tab) 100 mg QAM PO 01/15/18 09:00 02/14/18 08:59 01/17/18 08:20 100 MG Topiramate (Topamax Tab) 200 mg HS PO 01/15/18 21:00 02/14/18 20:59 01/16/18 21:05 200 MG Tramadol HCl (Ultram Tab) 50 mg BID PRN PO 01/15/18 03:00 02/14/18 02:59 Miscellaneous Information (Order Awaiting Action) 1 ea QS N/A 01/15/18 08:00 02/14/18 07:59 Glucose (Glucose 40% Gel) 15-30 GRAMS 15 GRAMS... UD PRN PO 01/15/18 03:45 02/14/18 03:44 Glucose (Glucose Chew Tab) 4-8 Tablets 4 Tabl... UD PRN PO 01/15/18 03:45 02/14/18 03:44 Dextrose (Dextrose 50% 50ML Syringe) 25-50ML OF 50% DW IV FOR... UD PRN IV 01/15/18 03:45 02/14/18 03:44 Glucagon (Glucagon Inj) 1 mg UD PRN SQ 01/15/18 03:45 02/14/18 03:44 Ceftriaxone Sodium 1 gm/ Dextrose 50 ml @ 100 mls/hr Q24H IV 01/15/18 06:00 01/22/18 05:59 01/17/18 06:25 100 MLS/HR Miscellaneous Information (Consult Glycemic Management Pharmacy) 1 ea UD PRN N/A 01/15/18 04:15 02/14/18 04:14 Oseltamivir Phosphate (Tamiflu Cap) 75 mg BID PO 01/15/18 09:00 01/20/18 08:59 01/17/18 08:21 75 MG Bupropion HCl (Wellbutrin Tab) 100 mg QAM PO 01/15/18 09:00 02/14/18 08:59 01/17/18 08:21 100 MG Bupropion HCl (Wellbutrin Tab) 200 mg DAILY@1600 PO 01/15/18 16:00 02/14/18 15:59 01/16/18 16:56 200 MG Insulin Human Regular 250 units/ Sodium Chloride 252.5 ml @ 0 mls/hr Q24H IV 01/15/18 09:30 02/14/18 09:29 01/16/18 09:14 6.4 MLS/HR Insulin Aspart (novoLOG ASPART) SLIDING SCALE PCHS SC 01/15/18 12:00 02/14/18 11:59 01/17/18 08:27 29 UNITS Furosemide 40 mg/ Syringe 4 ml @ 4 mls/min Q8 IV 01/15/18 14:00 02/14/18 13:59 01/17/18 06:26 4 MLS/MIN Azithromycin (Zithromax Tab) 500 mg QAM PO 01/16/18 09:00 01/21/18 09:01 01/17/18 08:21 500 MG Insulin Glargine (Lantus Solostar Pen) SEE PROTOCOL TEXT BID SC 01/15/18 21:00 02/14/18 20:59 01/17/18 08:28 75 UNITS Miscellaneous Information (Pending Order) 1 ea Q2H N/A 01/15/18 16:00 02/14/18 15:59
[2018-01-17] MEDS ORDERED: GUAIFENESIN 600 MG TABCR PO ONE (10:26)
--- NOTE | 2018-01-17 11:22 | PULMONARY PROGRESS NOTE ---
DATE: 01/17/2018 PROBLEM LIST: Includes: 1. Acute on chronic respiratory failure with hypoxia and hypercarbia. 2. Chronic obstructive pulmonary disease with exacerbation. 3. Influenza A. 4. Morbid obesity. SUBJECTIVE: The patient reports that she still is having cough and congestion. She states that the mucus feels like it is very tight in her chest and is unable to expectorate the mucus, although she does feel like there is a lot of mucus down in her chest. She does not think that she is getting anything to help in the secretions. She is getting a nebulizer about every 4 hours or so. She feels this is somewhat helpful, she is not having any pleuritic chest pain, she still is having some shortness of breath and feeling of out of breath. She does report that she does feel better than she did yesterday. She denies any headache or lightheadedness. No dizziness. She has not felt warm or cold. She has not had any fever that she is aware of. She denies any cardiac symptoms. No angina or palpitations. She has not had any nausea. She has not had any diarrhea that she is aware of. She does have a Payne in place. She is on Lasix. She does not feel that the Lasix is doing much, although when viewing her I and O, she has had negative balance for her fluid. Denies any other concerns. OBJECTIVE: GENERAL: The patient is a 62-year-old female with a tracheostomy in place, sitting in bedside. She is alert and oriented x3. Mood is good. Affect is good, although she is frustrated about her insulin drip. VITAL SIGNS: Temp 36.4, pulse 74, respirations 16, blood pressure is 136/82, and pulse ox is 99% on trach collar and 8 liters. HEENT: Normocephalic, atraumatic. Pupils equal, round, reactive to light and accommodation. Extraocular movements are intact. [place] moist gingival and buccal mucosa. NECK: The patient has a trach collar in place. She does have oxygen on via trach. LUNGS: She does have a dry type cough. She has faint wheezing bilaterally in the upper lobes bilaterally. No rales or rhonchi noted. CARDIOVASCULAR: Regular rate and rhythm. No murmurs, gallops or rubs. ABDOMEN: Obese, bowel sounds are present. Abdomen is soft, nontender. No guarding, rigidity or organomegaly. EXTREMITIES: The patient has +1 edema. No erythema. LABORATORY DATA: Shows a white count of 7.52, H&H 12.4/40.5, and platelet count 231,000. Preliminary urine culture showing gram negative bacilli. IMAGING DATA: No new imaging. IMPRESSION AND PLAN: Acute on chronic respiratory failure with hypoxia and hypercarbia. The patient's hypoxia is slowly improving, her oxygen demand is lessening. Agree with Dr. Morales, we need to titrate her down to try and maintain saturations between 88% and 92% to hopefully stimulate ventilation. As far as medications, will try and taper her Solu-Medrol to 40 q. 8 at this time and see how she does. Recommend continue the pulmonary toilet every 4 hours in the form of nebulization with levalbuterol and ipratropium. Would recommend to start on Mucinex, discussed this with Dr. Mary the hospitalist and he is going to add this in, otherwise continue to monitor. We will recheck patient tomorrow. ALMAZ
[2018-01-17] MEDS: METHYLPREDNISOLONE IV 40 MG in SYRINGE 0 ML IV SCH ×2 (14:13→21:21)
--- NOTE | 2018-01-17 15:07 | Pharmacy Progress Note ---
Glycemic Control Progress Note Date of Service Jan 17, 2018. Scope Glycemic Pharmacist consulted for glycemic control to write orders per [facility] inpatient glycemic control protocol. Objective Accuchecks BSG (last 24hrs): Test 01/16/18 15:02 01/16/18 16:04 01/16/18 18:24 01/16/18 19:58 Bedside Glucose 148 mg/dl (70-90) 140 mg/dl (70-90) 147 mg/dl (70-90) 153 mg/dl (70-90) Test 01/17/18 00:01 01/17/18 03:59 01/17/18 06:51 01/17/18 07:15 Bedside Glucose 147 mg/dl (70-90) 139 mg/dl (70-90) 137 mg/dl (70-90) Random Glucose 115 mg/dl (70-99) Test 01/17/18 08:18 01/17/18 10:15 Bedside Glucose 158 mg/dl (70-90) 218 mg/dl (70-90) HbA1c: Test 01/15/18 08:54 Hemoglobin A1c 8.5 % (4.5-5.6) H Recent Pertinent Medications Outpatient Anti-Diabetic Meds Humalog insulin pump Basal rate: 00-02 - 6.5 units/hr 02-07 - 7 units/hr -24 - 6.5 units/hr Correction factor: 15 Carb ratio: 1 units per 2 gram of carbs Goal range: 110-130 Assessment & Plan ASSESSMENT: * See progress note from 01/15/18 for more background info, in short: * Pt receiving SQ basal bolus insulin regimen for hyperglycemia secondary to baseline DM (outpatient regimen on hold), stress/infection, & steroids. * Patient received 226 units of SQ insulin + IV insulin infusion over the past 24 hours: * 150 units of basal insulin * 76 units of prandial/correctional insulin * Insulin infusion rate ~ 7.7 units/hr * Changes needed to insulin regimen: * AM Fasting BSG = 137 mg/dl. This is at goal range for patient based on inpatient targets and co-morbidities, therefore no changes today. * Post-prandial BSGs are in range therefore no changes needed to CF/CR. * If BSGs continue to improve, I anticipate transition off insulin drip tomorrow morning PLAN FOR INPATIENT GLYCEMIC CONTROL: * Basal insulin * LANTUS 75 units SQ BID (give 50 units if blood sugar less than 120 mg/dL) * Bolus Insulin * NOVOLOG per scale ACHS or Q6hrs while NPO * Correction Factor: -- mg/dL/unit * Carb ratio of 1 unit per 2 grams CHO consumed * Continue to overlap IV insulin infusion per protocol * Goal Range 100 - 200 mg/dL Pending order to discontinue IV infusion if: * BSG < 180 mg/dL x 2 * Insulin infusion rate < 2 units/hr If insulin infusion discontinued: * Add Novolog ACHS + 00 and 04 * correction factor of 7 mg/dL/unit * carb ratio: 2 * Goal range 110-140 * Please note that the plan above was derived based on current level of insulin resistance and hospital stress. These recommendations are appropriate for inpatient admission only. Plan of care upon discharge will need to be reassessed to avoid potential outpatient hypo/hyperglycemia. Thank you.
[2018-01-17] MEDS: GUAIFENESIN 600 MG TABCR PO SCH (21:19)
[2018-01-18] VITALS (13 sets, daily range): BP systolic 118–153; BP diastolic 71–98; PULSE 61–97; TEMP 36.6–36.9; O2SAT 86–96
[2018-01-18] MEDS: CLARINEX~ORDER AWAITING ACTION SCH ×3 (00:42→15:45)
[2018-01-18] MEDS: INSULIN ASPART 100 UNITS/ML 3 ML PEN SC SCH ×7 (01:18→23:54)
[2018-01-18] MEDS: LEVALBUTEROL 1.25MG/0.5ML NEB INH SCH ×6 (03:17→23:31)
[2018-01-18] MEDS: IPRATROPIUM BROMIDE NEB SOLN 0.02% 2.5 ML VIAL INH SCH ×6 (03:18→23:31)
[2018-01-18] MEDS: CEFTRIAXONE SOD INJ 1 GM in DEXTROSE 5% ADD-VANTAGE 50ML 50 ML IV SCH (06:16)
[2018-01-18] MEDS: METHYLPREDNISOLONE IV 40 MG in SYRINGE 0 ML IV SCH (06:16)
[2018-01-18] MEDS: FUROSEMIDE INJ 40 MG in SYRINGE 0 ML IV SCH ×3 (06:16→21:26)
[2018-01-18] MEDS: HEPARIN SOD 5000 UNIT/0.5 ML CARP SQ SCH ×3 (06:17→21:32)
[2018-01-18] MEDS: LEVOTHYROXINE 200 MCG TAB PO SCH (06:18)
[2018-01-18] MEDS: MULTIVITAMIN TAB PO SCH (08:00)
[2018-01-18] MEDS: MONTELUKAST SOD 10 MG TAB PO SCH (08:00)
[2018-01-18] MEDS: ISOSORBIDE MONONITRATE 60 MG TABCR PO SCH (08:00)
[2018-01-18] MEDS: ATORVASTATIN 20 MG TAB PO SCH (08:00)
[2018-01-18] MEDS: METOPROLOL TARTRATE 25 MG TAB PO SCH ×2 (08:00→21:35)
[2018-01-18] MEDS: PANTOprazole SOD 40 MG TAB PO SCH (08:00)
[2018-01-18] MEDS: AZITHROMYCIN 250 MG TAB PO SCH (08:01)
[2018-01-18] MEDS: OSELTAMIVIR PHOSPHATE 75 MG CAP PO SCH ×2 (08:01→21:32)
[2018-01-18] MEDS: GUAIFENESIN 600 MG TABCR PO SCH ×2 (08:01→21:35)
[2018-01-18] MEDS: ASPIRIN 81 MG ECTAB PO SCH (08:02)
[2018-01-18] MEDS: ERGOCALCIFEROL 50,000 INTER.UNIT CAP PO SCH (08:02)
[2018-01-18] MEDS: INSULIN GLARGINE SOLOSTAR 100 UNITS/ML 3 ML PEN SC SCH ×2 (08:04→21:31)
[2018-01-18 09:02] LABS: BASO % 0.1 %; BASO ABS # 0.01 K/uL (0-0.2); HEMATOCRIT 41.2 % (37-47); IG# 0.06 K/uL (0.00-0.02); LYMPH % 17.5 %; LYMPH ABS # 1.42 K/uL (1.2-3.4); MEAN CORPUSCULAR HEMOGLOBIN 28.4 pg (25-34); MEAN CORPUSCULAR HGB CONC 31.6 g/dl (32-36); MONO % 4.1 %; MONO ABS # 0.33 K/uL (0.11-0.59); NEUT % 77.6 %; PLATELET COUNT 262 K/uL (130-400); RED CELL DISTRIBUTION WIDTH CV 15.7 % (11.5-14.5); RED CELL DISTRIBUTION WIDTH SD 51.9 fL (36.4-46.3); WHITE BLOOD COUNT 8.12 K/uL (4.8-10.8)
[2018-01-18] MEDS: KETOCONAZOLE 2% CR 15 GM TUBE EXT SCH ×2 (09:28→21:42)
[2018-01-18] MEDS: CLOTRIMAZOLE/BETAMETHASONE CR 15 GM TUBE EXT SCH ×2 (09:28→21:43)
[2018-01-18] MEDS: TOPIRAMATE 100 MG TAB PO SCH ×2 (09:29→21:36)
[2018-01-18 09:37] LABS: CALCIUM 9.1 mg/dl (8.5-10.1); CREATININE 1.35 mg/dl (0.60-1.20); PHOSPHORUS 3.2 mg/dl (2.5-4.9)
--- NOTE | 2018-01-18 10:47 | PROGRESS NOTE ---
DATE: 01/18/2018 The patient was seen with Sydnee Gordon, nurse practitioner student. PROBLEM LIST: Includes: 1. Acute on chronic respiratory failure with hypoxia and hypercarbia. 2. Chronic obstructive pulmonary disease with exacerbation. 3. Influenza A. 4. Morbid obesity. SUBJECTIVE: The patient reports that she is feeling significantly better today. She feels that her breathing is improved, she is not as tight in her chest, she is not wheezing as much. She still does not feel that she is back to her baseline, but her coughing is not as bad and overall she is much more comfortable and much happier. She also reports that apparently her diuretic was changed and she did diurese and has gotten some swelling down her legs which she feels better about as well. No other concerns or problems at this time. OBJECTIVE: GENERAL: The patient is a 62-year-old female sitting at bedside, in no acute distress. She does have oxygen going through her tracheostomy. Mood is good. Affect is good. She is interactive and cooperative. VITAL SIGNS: Temp 36.6, pulse 71, respirations 20, blood pressure is 131/83, pulse ox is 96% on 8 liters via trach collar. HEENT: Normocephalic, atraumatic. Pupils equal, round, react to light and accommodation. Extraocular movements are intact. [place] moist gingival and buccal mucosa. NECK: Supple. There is no mass, no adenopathy, no bruit. CHEST: Diminished breath sounds bilaterally. She does have some slight tachypnea with respiratory rate in the 24-26 range. CARDIOVASCULAR: Regular rate and rhythm. There are no murmurs, gallops or rubs. ABDOMEN: Bowel sounds are present. Abdomen soft, nontender. No guarding, rigidity or organomegaly. EXTREMITIES: Maybe +1 edema at this time. She does have chronic venous stasis changes. No erythema, no tenderness. NEUROLOGIC: Cranial nerves II-XII are intact. No focal deficit noted. LABORATORY DATA: Shows white count of 8000, H&H 13.0 and 41.2, platelet count 262,000. She did have a bump in her creatinine to 1.35. Sputum culture showing light normal jessica. No new radiologic data. IMPRESSION: A 62-year-old female with acute on chronic respiratory failure with hypoxia and hypercarbia, most likely secondary to influenza A, chronic obstructive pulmonary disease exacerbation, again most likely secondary to influenza A. The patient also had edema most likely secondary to diastolic failure. At this point, the patient is showing definite improvement compared to yesterday. Was reevaluated and the patient actually is on room air at this time through trach collar, so she is back to her baseline with this. She does use oxygen at home at night. For now, would recommend to continue aggressive pulmonary toilet as it is. She is on Solu-Medrol at 40 q. 8, I think we can decrease that in the hopes of getting her converted over to oral prednisone. She has been on ceftriaxone since 01/15/2018, I feel we can continue that and continue diuresis, although monitor renal function due to the creatinine bump. My suspicion at this time is that as long as she continues to improve, that Tuesday would be an anticipated discharge day, although we will reevaluate tomorrow. ALMAZ
--- NOTE | 2018-01-18 10:49 | Pharmacy Progress Note ---
Glycemic Control Progress Note Date of Service Jan 18, 2018. Scope Glycemic Pharmacist consulted for glycemic control to write orders per [facility] inpatient glycemic control protocol. Objective Accuchecks BSG (last 24hrs): Test 01/17/18 11:11 01/17/18 12:20 01/17/18 13:08 01/17/18 14:15 Bedside Glucose 150 mg/dl (70-90) 142 mg/dl (70-90) 159 mg/dl (70-90) 135 mg/dl (70-90) Test 01/17/18 15:17 01/17/18 15:53 01/17/18 16:27 01/17/18 19:43 Bedside Glucose 104 mg/dl (70-90) 98 mg/dl (70-90) 105 mg/dl (70-90) 210 mg/dl (70-90) Test 01/18/18 00:12 01/18/18 04:23 01/18/18 06:36 01/18/18 08:45 Bedside Glucose 164 mg/dl (70-90) 152 mg/dl (70-90) 154 mg/dl (70-90) Random Glucose 246 mg/dl (70-99) HbA1c: Test 01/15/18 08:54 Hemoglobin A1c 8.5 % (4.5-5.6) H Outpatient Anti-Diabetic Meds Basal rate: 00-02 - 6.5 units/hr 02-07 - 7 units/hr 07-24 - 6.5 units/hr Correction factor: 15 Carb ratio: 1 units per 2 gram of carbs Goal range: 110-130 Assessment & Plan ASSESSMENT: * See progress note from 01/15/18 for more background info, in short: * Pt receiving SQ basal bolus insulin regimen for hyperglycemia secondary to baseline DM (outpatient regimen on hold), stress/infection, & steroids. * Solu-medrol IV decreased from 40 mg q8 to 20 mg q8 this afternoon * Patient received 263 units of SQ insulin + IV insulin infusion over the past 24 hours: * 150 units of basal insulin * 113 units of prandial/correctional insulin * Insulin infusion discontinued @ 1630 on 01/17 * Changes needed to insulin regimen: * AM Fasting BSG = 154 mg/dl. This is near goal range for patient based on inpatient targets and co-morbidities. Will slightly increase Lantus. * Post-prandial BSGs were in range yesterday. Lunch BSG elevated (218 mg/dL), however, steroid dose decreased 50% therefore no changes needed to CF/CR. PLAN FOR INPATIENT GLYCEMIC CONTROL: * Basal insulin * LANTUS 75-85 units SQ BID * 75 units if <120, 80 units if 120-180, 85 units if > 180 * Bolus Insulin * NOVOLOG per scale ACHS or Q6hrs while NPO * Correction Factor: 7 mg/dL/unit * Carb ratio of 1 unit per 2 grams CHO consumed * Add overnight checks with coverage at 00 and 04 DISCHARGE RECOMMENDATIONS: * Continue Humalog insulin pump on discharge. * Continue to titrate settings based on outpatient provider/safety assistant. Thank you.
[2018-01-18] MEDS: METHYLPREDNISOLONE IV 20 MG in SYRINGE 0 ML IV SCH ×2 (13:39→21:26)
--- NOTE | 2018-01-18 19:31 | Progress Note ---
Medicine Progress Note Date & Time of Visit: Jan 18, 2018 at 19:24. Subjective Pt was seen and examined Sitting in the recliner chair with no distress Pt said that she feels much better She said that her breathing feels much better She has been maintained her saturation on RA Denies any chest pain, palpitation, dizziness and SOB Objective Last 8 Hrs Date Time Temp Pulse Resp B/P (MAP) Pulse Ox O2 Delivery O2 Flow Rate FiO2 01/18/18 19:07 88 20 89 Room Air 01/18/18 16:00 Room Air 01/18/18 15:34 36.8 83 20 138/78 (98) 91 Room Air 01/18/18 15:19 91 20 89 Room Air 01/18/18 12:00 Room Air Trach Collar Physical Exam: General- No acute distress Head- atraumatic Eyes- PERRL, EOMI ENT- oropharynx clear Neck- supple, no JVD Lungs- Decrease breath sound Heart- regular rhythm; no murmur Abdomen- normal bowel sounds, soft Extremities- +Edema Neuro- alert, oriented x 3; PERRL, EOMI Skin- warm & dry Laboratory Results: Last 24 Hours Test 01/17/18 19:43 01/18/18 00:12 01/18/18 04:23 01/18/18 06:36 Bedside Glucose 210 mg/dl 164 mg/dl 152 mg/dl 154 mg/dl Test 01/18/18 08:45 01/18/18 11:10 01/18/18 15:48 White Blood Count 8.12 K/uL Red Blood Count 4.58 M/uL Hemoglobin 13.0 g/dL Hematocrit 41.2 % Mean Corpuscular Volume 90.0 fL Mean Corpuscular Hemoglobin 28.4 pg Mean Corpuscular Hemoglobin Concent 31.6 g/dl Platelet Count 262 K/uL Mean Platelet Volume 9.0 fL Neutrophils (%) (Auto) 77.6 % Lymphocytes (%) (Auto) 17.5 % Monocytes (%) (Auto) 4.1 % Eosinophils (%) (Auto) 0.0 % Basophils (%) (Auto) 0.1 % Neutrophils # (Auto) 6.30 K/uL Lymphocytes # (Auto) 1.42 K/uL Monocytes # (Auto) 0.33 K/uL Eosinophils # (Auto) 0.00 K/uL Basophils # (Auto) 0.01 K/uL RDW Standard Deviation 51.9 fL RDW Coefficient of Variation 15.7 % Immature Granulocyte % (Auto) 0.7 % Immature Granulocyte # (Auto) 0.06 K/uL Sodium Level 135 mmol/L Potassium Level 4.0 mmol/L Chloride Level 94 mmol/L Carbon Dioxide Level 35 mmol/L Anion Gap 6.0 mmol/L Blood Urea Nitrogen 28 mg/dl Creatinine 1.35 mg/dl Est Creatinine Clear Calc Drug Dose 71.6 ml/min Estimated GFR () 49.0 Estimated GFR (Non- 42.3 BUN/Creatinine Ratio 20.7 Random Glucose 246 mg/dl Calcium Level 9.1 mg/dl Phosphorus Level 3.2 mg/dl Magnesium Level 2.3 mg/dl Bedside Glucose 218 mg/dl 154 mg/dl Assessment & Plan ACUTE ON CHRONIC HYPERCAPNIC RESPIRATORY FAILURE Multifactorial secondary to obstructive sleep apnea vs obesity hypoventilation syndrome vs Infuenza A and COPD exacerbation Has a tracheostomy secondary to the above CXR on admission showed no airspace consolidation or large pleural effusion is identified. POC blood gas showed pH: 7.27, CO2 58, O2 69 , Bicarb 27 Repeat CXR showed cardiomegaly with suggestion of volume overload and mild pulmonary edema Continue on bronchodilators and nebulized treatment Will taper solumedrol to 40mg TID Continue ceftriaxone + azithro Sputum cx pending Case discussed with Pulmonary team Will add Mucinex Blood cx growth coag negative staph Urine cx growth gram negative Continue Bipap PRN, was placed over the mouth/nose as patient trach did not seem to have a method of direct connection to bipap Continue trach suctioning ECHO DONE The right ventricle is at least mildly enlarged on limited visualization, with mild to moderate RV hypokinesis. Left ventricular systolic function is normal. Ejection Fraction = 55-60%. Grade I diastolic dysfunction, (abnormal relaxation pattern). The tricuspid regurgitation envelope was inadequate to allow calculation of the pulmonary artery systolic pressure. 01/18/18 Clinically improved Seems to getting back to her baseline has been wean on oxygen Will continue oxygen at night solumedrol taper to 20mg q8h continue mucinex and neb treatment. HYPOTHYROIDISM: TSH 0.156 Free T4 WNL Continue levothyroxine. DM TYPE II: On high doses of Lantus and insulin pump. Recent Hba1c 8.5 on 01/15/18 Pharmacy on board for glycemic pharmacy On IV insulin managed by pharmacist CAD: Denies any chest pain Troponin negative On aspirin and statin Stable CKD STAGE III: Cr on admission 1.48 On lasix 40mg IV TID Creatine improves to 1.3 today Will switch lasix to her home dose torsemide in am Continue monitor BMP MORBID OBESITY: BMI: 76 has limited physical mobility high risk of further deconditioning; PT/OT when stablized DYSLIPIDEMIA: continue on statin. GERD: continue with Protonix. MIGRAINES: continue with Topamax. ANXIETY/DEPRESSION: stable continue on her home medications. DVT px on Heparin subq CODE STATUS FULL CODE Consultants: Pulmonary Current Inpatient Medications: Current Inpatient Medications Medications (Trade) Dose Ordered Sig/Fatoumata Route Start Time Stop Time Status Last Admin Dose Admin Heparin Sodium (Porcine) (Heparin Sq 5000 Unit/0.5ml) 5,000 unit Q8H SQ 01/15/18 01:45 02/14/18 01:44 01/18/18 15:44 5,000 UNIT Acetaminophen (Tylenol Tab) 650 mg Q4H PRN PO 01/15/18 01:45 02/14/18 01:44 Ondansetron HCl (Zofran Inj) 4 mg Q6H PRN IV 01/15/18 01:45 02/14/18 01:44 Levalbuterol (Xopenex 1.25MG/ 0.5ML Neb) 1.25 mg Q4R INH 01/15/18 04:00 02/14/18 03:59 01/18/18 19:07 1.25 MG Ipratropium [place] (Atrovent 0.02% 0.5MG/2.5ML Neb) 0.5 mg Q4R INH 01/15/18 04:00 02/14/18 03:59 01/18/18 19:07 0.5 MG Aspirin (Ecotrin Tab) 81 mg DAILY PO 01/15/18 09:00 02/14/18 08:59 01/18/18 08:02 81 MG Atorvastatin Calcium (Lipitor Tab) 20 mg DAILY PO 01/15/18 09:00 02/14/18 08:59 01/18/18 08:00 20 MG Betamethasone/ Clotrimazole (Lotrisone Crm) 1 appln AMHS EXT 01/15/18 09:00 02/14/18 08:59 01/18/18 09:28 1 APPLN Ergocalciferol (Vitamin D Cap) 50,000 interunit MoWeFr@0900 PO 01/16/18 09:00 02/15/18 08:59 01/18/18 08:02 50,000 INTERUNIT Folic Acid (Folvite Tab) 1 mg DAILY PO 01/15/18 09:00 02/14/18 08:59 01/18/18 08:02 1 MG Isosorbide Mononitrate (Imdur Ext Rel Tab) 60 mg DAILY PO 01/15/18 09:00 02/14/18 08:59 01/18/18 08:00 60 MG Ketoconazole (Nizoral 2% Crm) 1 appln BID EXT 01/15/18 09:00 01/25/18 08:59 01/18/18 09:28 1 APPLN Levothyroxine Sodium (Synthroid Tab) 200 mcg SuTuWeFrSa@0630 PO 01/15/18 06:30 02/14/18 06:29 01/18/18 06:18 200 MCG Levothyroxine Sodium (Synthroid Tab) 300 mcg MoTh@0630 PO 01/16/18 06:30 02/15/18 06:29 01/16/18 05:49 300 MCG Lorazepam (Ativan Tab) 1 mg Q8 PRN PO 01/15/18 03:00 02/14/18 02:59 Metoprolol Tartrate (Lopressor Tab) 12.5 mg BID PO 01/15/18 09:00 02/14/18 08:59 01/18/18 08:00 12.5 MG Montelukast Sodium (Singulair Tab) 10 mg DAILY PO 01/15/18 09:00 02/14/18 08:59 01/18/18 08:00 10 MG Multivitamins (Multivitamin Tab) 1 tab DAILY PO 01/15/18 09:00 02/14/18 08:59 01/18/18 08:00 1 TAB Nitroglycerin (Nitrostat Tab) 0.4 mg UD PRN UT 01/15/18 03:00 02/14/18 02:59 Pantoprazole Sodium (Protonix Tab) 40 mg DAILY PO 01/15/18 09:00 02/14/18 08:59 01/18/18 08:00 40 MG Topiramate (Topamax Tab) 100 mg QAM PO 01/15/18 09:00 02/14/18 08:59 01/18/18 09:29 100 MG Topiramate (Topamax Tab) 200 mg HS PO 01/15/18 21:00 02/14/18 20:59 01/17/18 21:19 200 MG Tramadol HCl (Ultram Tab) 50 mg BID PRN PO 01/15/18 03:00 02/14/18 02:59 Miscellaneous Information (Order Awaiting Action) 1 ea QS N/A 01/15/18 08:00 02/14/18 07:59 Glucose (Glucose 40% Gel) 15-30 GRAMS 15 GRAMS... UD PRN PO 01/15/18 03:45 02/14/18 03:44 Glucose (Glucose Chew Tab) 4-8 Tablets 4 Tabl... UD PRN PO 01/15/18 03:45 02/14/18 03:44 Dextrose (Dextrose 50% 50ML Syringe) 25-50ML OF 50% DW IV FOR... UD PRN IV 01/15/18 03:45 02/14/18 03:44 Glucagon (Glucagon Inj) 1 mg UD PRN SQ 01/15/18 03:45 02/14/18 03:44 Miscellaneous Information (Consult Glycemic Management Pharmacy) 1 ea UD PRN N/A 01/15/18 04:15 02/14/18 04:14 Oseltamivir Phosphate (Tamiflu Cap) 75 mg BID PO 01/15/18 09:00 01/20/18 08:59 01/18/18 08:01 75 MG Bupropion HCl (Wellbutrin Tab) 100 mg QAM PO 01/15/18 09:00 02/14/18 08:59 01/18/18 08:01 100 MG Bupropion HCl (Wellbutrin Tab) 200 mg DAILY@1600 PO 01/15/18 16:00 02/14/18 15:59 01/18/18 15:42 200 MG Furosemide 40 mg/ Syringe 4 ml @ 4 mls/min Q8 IV 01/15/18 14:00 02/14/18 13:59 01/18/18 13:39 4 MLS/MIN Azithromycin (Zithromax Tab) 500 mg QAM PO 01/16/18 09:00 01/19/18 09:01 01/18/18 08:01 500 MG Insulin Glargine (Lantus Solostar Pen) SEE PROTOCOL TEXT BID SC 01/15/18 21:00 02/14/18 20:59 01/18/18 08:04 80 UNITS Guaifenesin (Mucinex Contr Rel Tab) 600 mg Q12 PO 01/17/18 21:00 02/16/18 20:59 01/18/18 08:01 600 MG Insulin Aspart (novoLOG ASPART) SLIDING SCALE ACHS SC 01/17/18 16:45 02/16/18 16:44 01/18/18 17:44 31 UNITS Methylprednisolone Sodium Succinate 20 mg/Syringe 0.32 ml @ 1.5 mls/min Q8 IV 01/18/18 14:00 02/16/18 13:59 01/18/18 13:39 1.5 MLS/MIN Cefdinir (Omnicef Cap) 300 mg BID PO 01/18/18 21:00 01/21/18 23:59 Insulin Aspart (novoLOG ASPART) SLIDING SCALE 0000,0400 SC 01/19/18 00:00 01/19/18 04:01
[2018-01-18] MEDS: CEFDINIR 300 MG CAP PO SCH (21:34)
[2018-01-19] VITALS (15 sets, daily range): BP systolic 141–169; BP diastolic 82–123; PULSE 77–94; TEMP 36.6–37.1; O2SAT 87–97
[2018-01-19] MEDS: IPRATROPIUM BROMIDE NEB SOLN 0.02% 2.5 ML VIAL INH SCH ×6 (03:31→23:12)
[2018-01-19] MEDS: LEVALBUTEROL 1.25MG/0.5ML NEB INH SCH ×6 (03:31→23:12)
[2018-01-19] MEDS: INSULIN ASPART 100 UNITS/ML 3 ML PEN SC SCH ×5 (03:50→20:12)
[2018-01-19] MEDS ORDERED: ALBUT/IPRATROP 3MG/0.5MG NEB 3 ML VIAL INH STA (03:57)
[2018-01-19] MEDS ORDERED: ALBUT/IPRATROP 3MG/0.5MG NEB 3 ML VIAL INH PRN (04:00)
[2018-01-19 04:36] LABS: BASO % 0.1 %; BASO ABS # 0.01 K/uL (0-0.2); EOS % 0.1 %; EOS ABS # 0.01 K/uL (0-0.5); HEMATOCRIT 40.9 % (37-47); HEMOGLOBIN 12.9 g/dL (12.0-16.0); IG# 0.14 K/uL (0.00-0.02); LYMPH % 22.7 %; LYMPH ABS # 2.31 K/uL (1.2-3.4); MEAN CELL VOLUME 88.7 fL (80-100); MEAN CORPUSCULAR HGB CONC 31.5 g/dl (32-36); MEAN PLATELET VOLUME 8.7 fL (7.4-10.4); MONO % 10.5 %; MONO ABS # 1.07 K/uL (0.11-0.59); NEUT % 65.2 %; NEUT ABS # 6.65 K/uL (1.4-6.5); PLATELET COUNT 286 K/uL (130-400); RED CELL DISTRIBUTION WIDTH CV 15.5 % (11.5-14.5); RED CELL DISTRIBUTION WIDTH SD 49.9 fL (36.4-46.3); WHITE BLOOD COUNT 10.19 K/uL (4.8-10.8)
[2018-01-19] MEDS ORDERED: METHYLPREDNISOLONE IV 20 MG in SYRINGE 0 ML IV STA (04:36)
[2018-01-19] MEDS ORDERED: FUROSEMIDE INJ 40 MG in SYRINGE 0 ML IV STA (04:37)
[2018-01-19 04:54] LABS: CALCIUM 9.3 mg/dl (8.5-10.1); CREATININE 1.29 mg/dl (0.60-1.20); POTASSIUM 3.8 mmol/L (3.5-5.1)
[2018-01-19] MEDS: HEPARIN SOD 5000 UNIT/0.5 ML CARP SQ SCH ×3 (06:00→20:20)
[2018-01-19] MEDS: LEVOTHYROXINE 150 MCG TAB PO SCH (06:09)
--- NOTE | 2018-01-19 06:51 | DIAGNOSTIC IMAGING REPORT ---
CHEST ONE VIEW PORTABLE CLINICAL HISTORY: Respiratory distress. COMPARISON STUDY: Chest radiograph January 16, 2018. FINDINGS: Tracheostomy tube is in place. Exam is mild compromised due to suboptimal penetration related to portable technique and body habitus. Cardiomegaly is unchanged. Mediastinal widening is unchanged. There is no pneumothorax or pleural effusion is no lobar consolidation. Interstitial thickening has slightly improved. IMPRESSION: 1. Stable cardiomegaly. 2. Interval improvement in pulmonary vascular congestion. 3. No lobar consolidation. Electronically signed by: Toni Ohara M.D. 01/19/2018 6:50 AM Dictated Date/Time: 01/19/2018 6:49 AM
[2018-01-19] MEDS: CLARINEX~ORDER AWAITING ACTION SCH ×3 (08:00→16:00)
[2018-01-19] MEDS: KETOCONAZOLE 2% CR 15 GM TUBE EXT SCH ×2 (08:14→20:17)
[2018-01-19] MEDS: CLOTRIMAZOLE/BETAMETHASONE CR 15 GM TUBE EXT SCH ×2 (08:14→20:18)
[2018-01-19] MEDS: MONTELUKAST SOD 10 MG TAB PO SCH (08:17)
[2018-01-19] MEDS: OSELTAMIVIR PHOSPHATE 75 MG CAP PO SCH ×2 (08:17→20:16)
[2018-01-19] MEDS: CEFDINIR 300 MG CAP PO SCH ×2 (08:17→20:18)
[2018-01-19] MEDS: ASPIRIN 81 MG ECTAB PO SCH (08:17)
[2018-01-19] MEDS: TOPIRAMATE 100 MG TAB PO SCH ×2 (08:18→20:17)
[2018-01-19] MEDS: PANTOprazole SOD 40 MG TAB PO SCH (08:18)
[2018-01-19] MEDS: METOPROLOL TARTRATE 25 MG TAB PO SCH ×2 (08:18→20:16)
[2018-01-19] MEDS: AZITHROMYCIN 250 MG TAB PO SCH (08:18)
[2018-01-19] MEDS: MULTIVITAMIN TAB PO SCH (08:18)
[2018-01-19] MEDS: GUAIFENESIN 600 MG TABCR PO SCH ×2 (08:19→20:15)
[2018-01-19] MEDS: ATORVASTATIN 20 MG TAB PO SCH (08:19)
[2018-01-19] MEDS: ISOSORBIDE MONONITRATE 60 MG TABCR PO SCH (08:19)
[2018-01-19] MEDS: INSULIN GLARGINE SOLOSTAR 100 UNITS/ML 3 ML PEN SC SCH ×2 (08:22→20:22)
[2018-01-19] MEDS: METHYLPREDNISOLONE IV 20 MG in SYRINGE 0 ML IV SCH ×2 (12:16→20:18)
--- NOTE | 2018-01-19 12:22 | Pharmacy Progress Note ---
Glycemic Control Progress Note Date of Service Jan 19, 2018. Scope Glycemic Pharmacist consulted for glycemic control to write orders per [facility] inpatient glycemic control protocol. Objective Accuchecks BSG (last 24hrs): Test 01/18/18 15:48 01/18/18 20:26 01/18/18 23:49 01/19/18 03:39 Bedside Glucose 154 mg/dl (70-90) 196 mg/dl (70-90) 155 mg/dl (70-90) 111 mg/dl (70-90) Test 01/19/18 04:18 01/19/18 06:17 01/19/18 09:42 01/19/18 10:53 Random Glucose 112 mg/dl (70-99) Bedside Glucose 99 mg/dl (70-90) 173 mg/dl (70-90) 146 mg/dl (70-90) HbA1c: Test 01/15/18 08:54 Hemoglobin A1c 8.5 % (4.5-5.6) H Outpatient Anti-Diabetic Meds Basal rate: 00-02 - 6.5 units/hr 02-07 - 7 units/hr 07-24 - 6.5 units/hr Correction factor: 15 Carb ratio: 1 units per 2 gram of carbs Goal range: 110-130 Assessment & Plan ASSESSMENT: * See progress note from 01/15/18 for more background info, in short: * Pt receiving SQ basal bolus insulin regimen for hyperglycemia secondary to baseline DM (outpatient regimen on hold), stress/infection, & steroids. * Solu-medrol IV decreased from 40 mg q8 to 20 mg q8 yesterday * Patient received 284 units of SQ insulin over the past 24 hours: * 165 units of basal insulin * 119 units of prandial/correctional insulin * BSGs: 154, 218, 154, 196, 155 * Changes needed to insulin regimen: * AM Fasting BSG = 99 mg/dl. This is at goal range for patient based on inpatient targets and co-morbidities, however this was a significant decrease compared to yesterdays fasting of 154 mg/dL. Will decrease Lantus to avoid hypoglycemia. * Post-prandial BSGs are near goal. Remove overnight checks. If steroids are decreased further, we will need to loosen CF and possibly CR. * Once steroids are transitioned to oral, I anticipate being able to resume home insulin pump. PLAN FOR INPATIENT GLYCEMIC CONTROL: * Basal insulin - decrease * LANTUS 75-80 units SQ BID * 75 units for BSG less than 140, 80 units for BSG 140 mg/dL or more * Bolus Insulin * NOVOLOG per scale ACHS or Q6hrs while NPO * Correction Factor: 7 mg/dL/unit * Carb ratio of 1 unit per 2 grams CHO consumed DISCHARGE RECOMMENDATIONS: * Continue Humalog insulin pump on discharge. * Continue to titrate settings based on outpatient provider/battery container inspector. Thank you.
--- NOTE | 2018-01-19 13:34 | PULMONARY PROGRESS NOTE ---
DATE: 01/19/2018 PROBLEM LIST: Includes: 1. Acute on chronic respiratory failure with hypoxia and hypercarbia. 2. Chronic obstructive pulmonary disease with exacerbation. 3. Influenza A. 4. Morbid obesity. SUBJECTIVE: In reviewing chart apparently overnight the patient had an incident where she became lethargic, wound not really respond appropriately. Because of this, Dr. Cuellar did an ABG, which ABG showed a normal pH of 7.4, pCO2 of 51, pO2 was low at 56, oxygen was placed on the patient. The patient was also given Solu-Medrol and furosemide as well as a nebulizer treatment. When I went in to see the patient, the patient is sitting in bed, essentially just staring off, would follow me when I moved around, would not speak, did not verbalize anything, would follow some commands but response was delayed. Spoke with patient's daughter who was in the room and she is not sure what had happened other than that sometime overnight, the patient's mental status changed. Has not had any significant cough, no significant congestion, no chest heaviness or tightness. According to nursing, she ate everything this morning without difficulty. When prompted, the patient would nod her head yes. The patient did not shake her head now. OBJECTIVE: GENERAL: The patient is a 62-year-old morbidly obese female, sitting in bed. Eyes are open. She does appear aware. As stated above, should follow some commands in the form of nodding her head yes. She would language teacher my hands, although weakly. She would wiggle her toes, would blink her eyes for me. She would stick out her tongue for me. No verbal response. VITAL SIGNS: Temp 36.8, pulse 92, respirations 18, blood pressure is 148/83, pulse ox is in the 89-90% range. Currently, she is on about 3 liters through the trach. NECK: Supple. There is no mass, no adenopathy, no bruit. CHEST: Sounds slightly congested, few scattered wheeze. No rale or rhonchi noted. She has good air movement throughout. CARDIOVASCULAR: Regular rate and rhythm. No appreciated murmurs, gallops or rubs. ABDOMEN: Obese. EXTREMITIES: +1 edema bilaterally. LABORATORY DATA: Shows white count of 10,000, H&H 12.9 and 40.9, and platelet count 286,000. ABG - pH 7.44, pCO2 of 51, pO2 of 56, bicarbonate 34. Sodium 137, potassium 3.8, serum CO2 33, BUN 29, creatinine 1.29, glucose 112, magnesium 2.3. Ammonia is slightly elevated at 35.8. Urine showing 2+ blood, trace leukocyte, greater than 30 red blood cells per high power field. IMAGING DATA: Chest x-ray showing improvement compared to previous. No evidence of any images that are actually pleural effusion or consolidation. IMPRESSION: This is a 62-year-old female who has been hospitalized for acute on chronic respiratory failure with hypoxia and hypercarbia, which is improved. compared to yesterday, the patient was showing significant improvement, her breathing was better, she was on room air and we are anticipating discharge to home; however, apparently overnight something happented that the patient with altered mental status at this point. Apparently, hospitalists are going to order a CT of the head, which I agree with. In light of oxygen saturations dropping little and patient requiring oxygen again may need to consider a CT angiogram, although the patient is already anticoagulated and in the immediate setting would not change the plan of action, so I am going with the CT of the head first. We will continue to maintain oxygen saturations above 88% with targeting 88-92%. Continue aggressive pulmonary toilet. We will continue to monitor. MTDD
[2018-01-19] MEDS: FUROSEMIDE INJ 40 MG in SYRINGE 0 ML IV SCH ×2 (13:49→20:16)
--- NOTE | 2018-01-19 15:09 | DIAGNOSTIC IMAGING REPORT ---
HEAD WITHOUT CONTRAST (CT) CLINICAL HISTORY: 62 years-old Female with Slow to response. Acutely altered mental status TECHNIQUE: Multiple axial CT images of the head were obtained without contrast. A dose lowering technique was utilized adhering to the principles of ALARA. CT DOSE: 1523.61 mGy.cm COMPARISON: Head CT 12/03/2010. FINDINGS: Motion degraded exam. No acute intracranial hemorrhage, midline shift, intracranial mass, hydrocephalus, territorial ischemia or abnormal extra-axial collection. Mild atrophy. The calvarium is intact. The paranasal sinuses, mastoid air cells, and middle ear cavities are clear. IMPRESSION: No acute intracranial abnormality. The above report was generated using voice recognition software. It may contain grammatical, syntax or spelling errors. Electronically signed by: Jamir Henderson M.D. 01/19/2018 3:08 PM Dictated Date/Time: 01/19/2018 3:06 PM
--- NOTE | 2018-01-19 19:12 | Progress Note ---
Medicine Progress Note Date & Time of Visit: Jan 19, 2018 at 18:09. Subjective Pt was seen seen and examined Lying in bed with no acute distress with daughter at bedside Pt seems to response slow today She also had some abnormal jerking movement Her breathing was worst this morning and seems to improved now with oxygen Denies any chest pain, palpitation Objective Last 8 Hrs Date Time Temp Pulse Resp B/P (MAP) Pulse Ox O2 Delivery O2 Flow Rate FiO2 01/19/18 16:18 36.8 93 18 141/88 (105) 92 Trach Collar 01/19/18 15:21 88 20 96 Room Air 01/19/18 12:00 Room Air Trach Collar 01/19/18 11:12 91 20 89 Room Air 01/19/18 11:06 36.8 92 18 148/83 (104) 87 Room Air Physical Exam: General- No acute distress Head- atraumatic Eyes- PERRL, EOMI ENT- oropharynx clear Neck- supple, no JVD Lungs- +wheezing Heart- regular rhythm; no murmur Abdomen- normal bowel sounds, soft Extremities- +Edema Neuro- alert, but slow response, abnormal jerking movement Skin- warm & dry Laboratory Results: Last 24 Hours Test 01/18/18 20:26 01/18/18 23:49 01/19/18 03:39 01/19/18 04:18 Bedside Glucose 196 mg/dl 155 mg/dl 111 mg/dl White Blood Count 10.19 K/uL Red Blood Count 4.61 M/uL Hemoglobin 12.9 g/dL Hematocrit 40.9 % Mean Corpuscular Volume 88.7 fL Mean Corpuscular Hemoglobin 28.0 pg Mean Corpuscular Hemoglobin Concent 31.5 g/dl Platelet Count 286 K/uL Mean Platelet Volume 8.7 fL Neutrophils (%) (Auto) 65.2 % Lymphocytes (%) (Auto) 22.7 % Monocytes (%) (Auto) 10.5 % Eosinophils (%) (Auto) 0.1 % Basophils (%) (Auto) 0.1 % Neutrophils # (Auto) 6.65 K/uL Lymphocytes # (Auto) 2.31 K/uL Monocytes # (Auto) 1.07 K/uL Eosinophils # (Auto) 0.01 K/uL Basophils # (Auto) 0.01 K/uL RDW Standard Deviation 49.9 fL RDW Coefficient of Variation 15.5 % Immature Granulocyte % (Auto) 1.4 % Immature Granulocyte # (Auto) 0.14 K/uL Sodium Level 137 mmol/L Potassium Level 3.8 mmol/L Chloride Level 98 mmol/L Carbon Dioxide Level 33 mmol/L Anion Gap 6.0 mmol/L Blood Urea Nitrogen 29 mg/dl Creatinine 1.29 mg/dl Est Creatinine Clear Calc Drug Dose 75.0 ml/min Estimated GFR () 51.8 Estimated GFR (Non- 44.7 BUN/Creatinine Ratio 22.4 Random Glucose 112 mg/dl Calcium Level 9.3 mg/dl Magnesium Level 2.3 mg/dl Test 01/19/18 05:49 01/19/18 05:57 01/19/18 06:17 01/19/18 06:38 Total Triiodothyronine 0.69 ng/ml Blood Gas Specimen Type ARTERIAL Blood Gas Sample Site R Radial Blood Gas Patient Temperature 36.8 Bedside Blood Gas pH (LAB) 7.44 Bedside Blood Gas pCO2 (LAB) 53 mmHg Bedside Blood Gas pO2 (LAB) 72 mmHg Bedside Blood Gas HCO3 (LAB) 36 meq/L Bedside Blood Gas Total CO2 37 mEq/l Bedside Blood Gas Base Excess (LAB) 11.0 meq/L Bedside Blood Gas O2 Saturation 95.0 % Mendoza Test ACCEPTABLE Oxygen Delivery Device Trach Col Bedside FiO2 30 % Bedside Glucose 99 mg/dl Ammonia 35.8 umol/L Test 01/19/18 07:00 01/19/18 09:42 01/19/18 10:22 01/19/18 10:53 Urine Color YELLOW Urine Appearance CLEAR Urine pH 7.5 Urine Specific [place] 1.010 Urine Protein NEG Urine Glucose (UA) NEG Urine Ketones NEG Urine Occult Blood 2+ Urine Nitrite NEG Urine Bilirubin NEG Urine Urobilinogen NEG Urine Leukocyte Esterase TRACE Urine WBC (Auto) 1-5 /hpf Urine RBC (Auto) >30 /hpf Urine Hyaline Casts (Auto) 1-5 /lpf Urine Epithelial Cells (Auto) 5-10 /lpf Urine Bacteria (Auto) NEG Bedside Glucose 173 mg/dl 146 mg/dl Arterial Blood pH 7.44 Arterial Blood Partial Pressure CO2 51 mmHg Arterial Blood Partial Pressure O2 56 mm/Hg Arterial Blood HCO3 34 mmol/L Arterial Blood Oxygen Saturation 87.6 % Arterial Blood Base Excess 8.7 mEq/L Arterial Blood Gas Delivery ROOM AIR Mendoza Test POS Assessment & Plan ACUTE ON CHRONIC HYPERCAPNIC RESPIRATORY FAILURE Multifactorial secondary to obstructive sleep apnea vs obesity hypoventilation syndrome vs Infuenza A and COPD exacerbation Has a tracheostomy secondary to the above CXR on admission showed no airspace consolidation or large pleural effusion is identified. POC blood gas showed pH: 7.27, CO2 58, O2 69 , Bicarb 27 Repeat CXR showed cardiomegaly with suggestion of volume overload and mild pulmonary edema Continue on bronchodilators and nebulized treatment Will taper solumedrol to 40mg TID Continue ceftriaxone + azithro Sputum cx pending Case discussed with Pulmonary team Will add Mucinex Blood cx growth coag negative staph Urine cx growth gram negative Continue Bipap PRN, was placed over the mouth/nose as patient trach did not seem to have a method of direct connection to bipap Continue trach suctioning ECHO DONE The right ventricle is at least mildly enlarged on limited visualization, with mild to moderate RV hypokinesis. Left ventricular systolic function is normal. Ejection Fraction = 55-60%. Grade I diastolic dysfunction, (abnormal relaxation pattern). The tricuspid regurgitation envelope was inadequate to allow calculation of the pulmonary artery systolic pressure. 3/ breathing worsening today Starting back on oxygen due to increase breathing activity CXR today showed Interval improvement in pulmonary vascular congestion. On Solumedrol 20mg q8h continue mucinex and neb treatment. Pulmonary on board Consider to get a CTA chest if breathing worst tomorrow to r/o PE Discussed with daughter and patient about the risk for the CTA such as worsening kidney function and kidney failure HYPOTHYROIDISM: TSH 0.156 with Free T4 and Total T3 WNL Has been having some abnormal jerking movement Pt has been on levothyroxine 200mg daily and 300mg on Tuesday and On levothyroxine 200mg daily and 300mg on Tuesday and Will decrease levothyroxine to 200 mcg Will check FreeT3 to r/o T3 Thyrotoxicity Abnormal Jerking movement CT head showed no intracranial abnormality Possible related to thyroid etiology vs steroid induced Ammonia level 35.8 Need to r/o T3 thyrotoxicity Will check Free T3 If thyroid work up negative, consider neuro consult Will need to r/o steroid induced also will consider to change the solumedrol to prednisone DM TYPE II: On high doses of Lantus and insulin pump. Recent Hba1c 8.5 on 01/15/18 Insulin drip has been discontinue Pharmacy on board for glycemic pharmacy CAD: Denies any chest pain Troponin negative On aspirin and statin Stable CKD STAGE III: Cr on admission 1.48 On lasix 40mg IV TID Creatine improves to 1.2 today Will switch lasix to her home dose torsemide in am Continue monitor BMP MORBID OBESITY: BMI: 76 has limited physical mobility high risk of further deconditioning; PT/OT when stablized DYSLIPIDEMIA: continue on statin. GERD: continue with Protonix. MIGRAINES: continue with Topamax. ANXIETY/DEPRESSION: stable continue on her home medications. DVT px on Heparin subq CODE STATUS FULL CODE Consultants: Pulmonary Current Inpatient Medications: Current Inpatient Medications Medications (Trade) Dose Ordered Sig/Fatoumata Route Start Time Stop Time Status Last Admin Dose Admin Heparin Sodium (Porcine) (Heparin Sq 5000 Unit/0.5ml) 5,000 unit Q8H SQ 01/15/18 01:45 02/14/18 01:44 01/19/18 13:48 5,000 UNIT Acetaminophen (Tylenol Tab) 650 mg Q4H PRN PO 01/15/18 01:45 02/14/18 01:44 Ondansetron HCl (Zofran Inj) 4 mg Q6H PRN IV 01/15/18 01:45 02/14/18 01:44 Levalbuterol (Xopenex 1.25MG/ 0.5ML Neb) 1.25 mg Q4R INH 01/15/18 04:00 02/14/18 03:59 01/19/18 15:20 1.25 MG Ipratropium [place] (Atrovent 0.02% 0.5MG/2.5ML Neb) 0.5 mg Q4R INH 01/15/18 04:00 02/14/18 03:59 01/19/18 15:20 0.5 MG Aspirin (Ecotrin Tab) 81 mg DAILY PO 01/15/18 09:00 02/14/18 08:59 01/19/18 08:17 81 MG Atorvastatin Calcium (Lipitor Tab) 20 mg DAILY PO 01/15/18 09:00 02/14/18 08:59 01/19/18 08:19 20 MG Betamethasone/ Clotrimazole (Lotrisone Crm) 1 appln AMHS EXT 01/15/18 09:00 02/14/18 08:59 01/19/18 08:14 1 APPLN Ergocalciferol (Vitamin D Cap) 50,000 interunit MoWeFr@0900 PO 01/16/18 09:00 02/15/18 08:59 01/18/18 08:02 50,000 INTERUNIT Folic Acid (Folvite Tab) 1 mg DAILY PO 01/15/18 09:00 02/14/18 08:59 01/19/18 08:18 1 MG Isosorbide Mononitrate (Imdur Ext Rel Tab) 60 mg DAILY PO 01/15/18 09:00 02/14/18 08:59 01/19/18 08:19 60 MG Ketoconazole (Nizoral 2% Crm) 1 appln BID EXT 01/15/18 09:00 01/25/18 08:59 01/19/18 08:14 1 APPLN Levothyroxine Sodium (Synthroid Tab) 200 mcg SuTuWeFrSa@0630 PO 01/15/18 06:30 02/14/18 06:29 01/18/18 06:18 200 MCG Levothyroxine Sodium (Synthroid Tab) 300 mcg MoTh@0630 PO 01/16/18 06:30 02/15/18 06:29 01/16/18 05:49 300 MCG Lorazepam (Ativan Tab) 1 mg Q8 PRN PO 01/15/18 03:00 02/14/18 02:59 Metoprolol Tartrate (Lopressor Tab) 12.5 mg BID PO 01/15/18 09:00 02/14/18 08:59 01/19/18 08:18 12.5 MG Montelukast Sodium (Singulair Tab) 10 mg DAILY PO 01/15/18 09:00 02/14/18 08:59 01/19/18 08:17 10 MG Multivitamins (Multivitamin Tab) 1 tab DAILY PO 01/15/18 09:00 02/14/18 08:59 01/19/18 08:18 1 TAB Nitroglycerin (Nitrostat Tab) 0.4 mg UD PRN UT 01/15/18 03:00 02/14/18 02:59 Pantoprazole Sodium (Protonix Tab) 40 mg DAILY PO 01/15/18 09:00 02/14/18 08:59 01/19/18 08:18 40 MG Topiramate (Topamax Tab) 100 mg QAM PO 01/15/18 09:00 02/14/18 08:59 01/19/18 08:18 100 MG Topiramate (Topamax Tab) 200 mg HS PO 01/15/18 21:00 02/14/18 20:59 01/18/18 21:36 200 MG Tramadol HCl (Ultram Tab) 50 mg BID PRN PO 01/15/18 03:00 02/14/18 02:59 Miscellaneous Information (Order Awaiting Action) 1 ea QS N/A 01/15/18 08:00 02/14/18 07:59 Glucose (Glucose 40% Gel) 15-30 GRAMS 15 GRAMS... UD PRN PO 01/15/18 03:45 02/14/18 03:44 Glucose (Glucose Chew Tab) 4-8 Tablets 4 Tabl... UD PRN PO 01/15/18 03:45 02/14/18 03:44 Dextrose (Dextrose 50% 50ML Syringe) 25-50ML OF 50% DW IV FOR... UD PRN IV 01/15/18 03:45 02/14/18 03:44 Glucagon (Glucagon Inj) 1 mg UD PRN SQ 01/15/18 03:45 02/14/18 03:44 Miscellaneous Information (Consult Glycemic Management Pharmacy) 1 ea UD PRN N/A 01/15/18 04:15 02/14/18 04:14 Oseltamivir Phosphate (Tamiflu Cap) 75 mg BID PO 01/15/18 09:00 01/20/18 08:59 01/19/18 08:17 75 MG Bupropion HCl (Wellbutrin Tab) 100 mg QAM PO 01/15/18 09:00 02/14/18 08:59 01/19/18 08:17 100 MG Bupropion HCl (Wellbutrin Tab) 200 mg DAILY@1600 PO 01/15/18 16:00 02/14/18 15:59 01/19/18 17:08 200 MG Insulin Glargine (Lantus Solostar Pen) SEE PROTOCOL TEXT BID SC 01/15/18 21:00 02/14/18 20:59 01/19/18 08:22 75 UNITS Guaifenesin (Mucinex Contr Rel Tab) 600 mg Q12 PO 01/17/18 21:00 02/16/18 20:59 01/19/18 08:19 600 MG Insulin Aspart (novoLOG ASPART) SLIDING SCALE ACHS SC 01/17/18 16:45 02/16/18 16:44 01/19/18 12:26 16 UNITS Cefdinir (Omnicef Cap) 300 mg BID PO 01/18/18 21:00 01/21/18 23:59 01/19/18 08:17 300 MG Albuterol/ Ipratropium (Duoneb) 3 ml Q2H PRN INH 01/19/18 04:00 02/18/18 03:59 Furosemide 40 mg/ Syringe 4 ml @ 4 mls/min Q8H IV 01/19/18 14:00 02/14/18 13:59 01/19/18 13:49 4 MLS/MIN Methylprednisolone Sodium Succinate 20 mg/Syringe 0.32 ml @ 1.5 mls/min Q8H IV 01/19/18 12:00 02/16/18 11:59 01/19/18 12:16 1.5 MLS/MIN
[2018-01-20] VITALS (14 sets, daily range): BP systolic 118–158; BP diastolic 71–99; PULSE 80–94; TEMP 36.5–37.3; O2SAT 87–95
[2018-01-20] MEDS: METHYLPREDNISOLONE IV 20 MG in SYRINGE 0 ML IV SCH ×2 (03:19→12:44)
[2018-01-20] MEDS: IPRATROPIUM BROMIDE NEB SOLN 0.02% 2.5 ML VIAL INH SCH ×6 (03:33→22:58)
[2018-01-20] MEDS: LEVALBUTEROL 1.25MG/0.5ML NEB INH SCH ×6 (03:33→22:58)
[2018-01-20 06:06] LABS: BASO % 0.1 %; BASO ABS # 0.01 K/uL (0-0.2); EOS % 0.2 %; EOS ABS # 0.02 K/uL (0-0.5); HEMATOCRIT 42.3 % (37-47); HEMOGLOBIN 13.4 g/dL (12.0-16.0); IG# 0.19 K/uL (0.00-0.02); LYMPH % 19.4 %; MEAN CELL VOLUME 87.2 fL (80-100); MEAN CORPUSCULAR HEMOGLOBIN 27.6 pg (25-34); MEAN CORPUSCULAR HGB CONC 31.7 g/dl (32-36); MEAN PLATELET VOLUME 8.7 fL (7.4-10.4); MONO % 7.1 %; MONO ABS # 0.77 K/uL (0.11-0.59); NEUT % 71.4 %; NEUT ABS # 7.74 K/uL (1.4-6.5); PLATELET COUNT 301 K/uL (130-400); RED CELL DISTRIBUTION WIDTH CV 15.9 % (11.5-14.5); RED CELL DISTRIBUTION WIDTH SD 50.6 fL (36.4-46.3); WHITE BLOOD COUNT 10.83 K/uL (4.8-10.8)
[2018-01-20] MEDS: HEPARIN SOD 5000 UNIT/0.5 ML CARP SQ SCH ×3 (06:09→21:16)
[2018-01-20] MEDS: LEVOTHYROXINE 200 MCG TAB PO SCH (06:30)
[2018-01-20] MEDS: FUROSEMIDE INJ 40 MG in SYRINGE 0 ML IV SCH ×3 (06:30→21:10)
[2018-01-20 06:36] LABS: CALCIUM 9.2 mg/dl (8.5-10.1); CREATININE 1.2 mg/dl (0.60-1.20); PHOSPHORUS 3.7 mg/dl (2.5-4.9); POTASSIUM 3.7 mmol/L (3.5-5.1)
[2018-01-20] MEDS: INSULIN ASPART 100 UNITS/ML 3 ML PEN SC SCH ×4 (07:00→21:15)
[2018-01-20] MEDS: CLARINEX~ORDER AWAITING ACTION SCH ×3 (08:00→16:00)
[2018-01-20] MEDS: INSULIN GLARGINE SOLOSTAR 100 UNITS/ML 3 ML PEN SC SCH ×2 (09:16→21:15)
[2018-01-20] MEDS: CLOTRIMAZOLE/BETAMETHASONE CR 15 GM TUBE EXT SCH ×2 (09:21→21:09)
[2018-01-20] MEDS: ERGOCALCIFEROL 50,000 INTER.UNIT CAP PO SCH (09:22)
[2018-01-20] MEDS: CEFDINIR 300 MG CAP PO SCH ×2 (09:22→21:10)
[2018-01-20] MEDS: ASPIRIN 81 MG ECTAB PO SCH (09:22)
[2018-01-20] MEDS: KETOCONAZOLE 2% CR 15 GM TUBE EXT SCH ×2 (09:22→21:09)
[2018-01-20] MEDS: MONTELUKAST SOD 10 MG TAB PO SCH (09:23)
[2018-01-20] MEDS: PANTOprazole SOD 40 MG TAB PO SCH (09:23)
[2018-01-20] MEDS: MULTIVITAMIN TAB PO SCH (09:23)
[2018-01-20] MEDS: TOPIRAMATE 100 MG TAB PO SCH ×2 (09:23→21:10)
[2018-01-20] MEDS: METOPROLOL TARTRATE 25 MG TAB PO SCH ×2 (09:24→21:09)
[2018-01-20] MEDS: GUAIFENESIN 600 MG TABCR PO SCH ×2 (09:24→21:10)
[2018-01-20] MEDS: ISOSORBIDE MONONITRATE 60 MG TABCR PO SCH (09:24)
[2018-01-20] MEDS: ATORVASTATIN 20 MG TAB PO SCH (09:24)
--- NOTE | 2018-01-20 10:34 | Pharmacy Progress Note ---
Pharmacy Glycemic Short Note 2 Date of Service Jan 20, 2018. OUTPATIENT ANTIDIABETIC REGIMEN: * Humalog insulin pump * Basal rate: 00- - 6.5 units/hr - - 7 units/hr - - 6.5 units/hr * Correction factor: 15 * Carb ratio: 1 units per 2 gram of carbs * Goal range: 110-130 ASSESSMENT: * See progress note from 01/15/18 for more background info, in short: * Pt receiving SQ basal bolus insulin regimen for hyperglycemia secondary to baseline DM (outpatient regimen on hold), stress/infection, & steroids. * Solu-medrol IV continues to taper slowly. Currently ordered 20 mg IV q8 since 01/18/18 * Patient received 194 units of SQ insulin over the past 24 hours: * 150 units of basal insulin * 44 units of prandial/correctional insulin * BSGs: 111, 99, 146, 88, 98 * Changes needed to insulin regimen: BASAL INSULIN DOSING: * AM Fasting BSG = 98,103 mg/dl. This is at goal range for patient based on inpatient targets and co-morbidities, however AM fasting BSG continues to trend downwards. Possible hypoglycemia in the next few days if dosing is not empirically reduced. * Since majority of regimen is all basal insulin it appears that the basal insulin is covering some prandial needs as well as basal insulin needs. This puts patient at risk for hypoglycemia when PO intake decreases. * Will decrease basal insulin dosing and continue to titrate based on BSG trends. BOLUS INSULIN DOSING * Post-prandial BSGs trend downwards throughout the day. Suspect the Lantus is covering CHOs since nursing is stating in notes that patient is tolerating meals and snacks but no CHO coverage is given. * Once steroids are transitioned to oral, I anticipate being able to resume home insulin pump. PLAN FOR INPATIENT GLYCEMIC CONTROL: * Basal insulin - decrease * LANTUS 70-75 units SQ BID * 70 units for BSG less than 140, 75 units for BSG 140 mg/dL or more * Bolus Insulin * NOVOLOG per scale ACHS or Q6hrs while NPO * Correction Factor: 7 mg/dL/unit * Carb ratio of 1 unit per 2 grams CHO consumed DISCHARGE RECOMMENDATIONS: * A1c = 8.5% on 01/15/18 * This is in range for patient based on age and comorbidities. * Continue Humalog insulin pump on discharge. * Continue to titrate settings based on outpatient provider/court transcriber.
--- NOTE | 2018-01-20 12:09 | PROGRESS NOTE ---
DATE: 01/20/2018 PROBLEM LIST: Includes: 1. Acute on chronic respiratory failure with hypoxia and hypercarbia. 2. Chronic obstructive pulmonary disease with exacerbation. 3. Influenza A. 4. Morbid obesity. 5. Altered mental status. SUBJECTIVE: The patient is a little bit better today. She will vocalize and speak with me today. She has less jerking as well; however, her speech is still very small and it takes a lot of prompting to get her to verbalize. During my interview with her, she did report that she is having some headache, although she reports that it is mild. She did reach up and point to the right side when I asked her where was that. She denied any difficulty with her breathing has not had any significant cough or congestion, no wheezing that she is aware of. When I asked her about chest pain, she did say yes. When I asked her to point to where she was having it, she actually pointed to her mid abdomen area. In reviewing the nursing notes, she is back on room air, saturating well. She did not eat any breakfast. SUBJECTIVE: The patient is a 62-year-old morbidly obese female, actually sitting in her chair today. Does continue to have random jerking/spastic motions with the extremities, typically upper extremity, not happening as frequently as they were yesterday. She is more interactive today and does appear to be appropriate and oriented with her speech. PHYSICAL EXAMINATION: GENERAL: She is alert. VITAL SIGNS: Temp is 37.4, pulse 94, respirations 24, blood pressure is 130/87, pulse ox is 90% on room air via trach collar. HEENT: Normocephalic, atraumatic. No tenderness to palpation. Pupils equal, round and reactive, nonicteric. [place] moist gingival and buccal mucosa. NECK: Trach collar is in place. NECK: Short, supple. No mass, no adenopathy, no bruit. CHEST: Diminished breath sounds bilaterally. The patient has few scattered expiratory wheeze, most of which clear with cough. CARDIOVASCULAR: Regular rate and rhythm. Did not appreciate any murmurs at this time. ABDOMEN: Bowel sounds present. Abdomen is soft. The patient does have some minimal tenderness to palpation in the upper abdomen. No guarding, no rigidity. EXTREMITIES: +1 to +2 edema, no erythema, no tenderness. LABORATORY DATA: Shows a white count of 10,800, H&H 13.4/42.3, and platelet count 301,000. IMAGING DATA: The patient had a CT of her head done yesterday which was unremarkable. IMPRESSION: 1. A 62-year-old morbidly obese female with acute on chronic respiratory failure with hypoxia and hypercarbia. From pulmonary standpoint, the patient has shown improvement from yesterday. She is off oxygen when I saw her and was saturating right around 90%. Lung sounds are diminished but fairly clear at this time. So, in that regards, would recommend she continue Solu-Medrol at its current dose today and then taper tomorrow if she maintains her current status. Continue aggressive pulmonary toilet. 2. Change in mental status. Overall, Case was discussed with Dr. Mary, hospitalist and we did discuss that there is slight possibility of PE, although this is very doubtful. Would hold off on doing a D-dimer because with her other illnesses right now, I suspect would come back elevated. Renal function is still a little bit elevated. She has improved her oxygen saturations, improving. She is requiring less supplemental oxygen. So at this point, would hold off on doing any imaging. Again, this was discussed with Dr. Mary. 3. Chest pain. The patient is actually pointing to her abdomen, unsure if there is anything unusual going. This is related to the hospitalist team as well. Continue to monitor troponins and evaluate her iuss acoustic analyst. PLAN: At this point is to continue monitoring the patient, continue Solu-Medrol at current dose, and continue aggressive pulmonary toilet and continue to monitor her mental status as unsure of the etiology of her mental status change, currently. MTDD
[2018-01-20] MEDS ORDERED: NURSING DECISION MEDICATION ORDER SCH (15:45)
--- NOTE | 2018-01-20 18:56 | Progress Note ---
Medicine Progress Note Date & Time of Visit: Jan 20, 2018 at 08:46. Subjective Pt was seen and examined Lying in bed chair with no distress Pt seems improved today she was able to communicate more today she had less abnormal jerking movement today Nurse and daughter said that after pt received the solumedrol again, she declined Pt said that she is having some discomfort around her abdomen Objective Last 8 Hrs Date Time Temp Pulse Resp B/P (MAP) Pulse Ox O2 Delivery O2 Flow Rate FiO2 01/20/18 16:34 37.2 94 16 129/82 (98) 91 Trach Collar 01/20/18 16:01 Room Air Trach Collar 01/20/18 14:26 80 16 90 Room Air 01/20/18 12:00 Room Air Trach Collar 01/20/18 11:41 80 15 92 Trach Collar 8.0 30 01/20/18 11:26 37.3 94 24 130/83 (99) 87 Room Air Physical Exam: General- No acute distress Head- atraumatic Eyes- PERRL, EOMI ENT- oropharynx clear Neck- supple, no JVD Lungs- +wheezing Heart- regular rhythm; no murmur Abdomen- normal bowel sounds, soft Extremities- +Edema Neuro- alert, but slow response, abnormal jerking movement Skin- warm & dry Laboratory Results: Last 24 Hours Test 01/19/18 19:51 01/19/18 23:45 01/20/18 03:17 01/20/18 05:15 Bedside Glucose 98 mg/dl 88 mg/dl 96 mg/dl 91 mg/dl Test 01/20/18 05:36 01/20/18 06:34 01/20/18 11:18 01/20/18 16:14 White Blood Count 10.83 K/uL Red Blood Count 4.85 M/uL Hemoglobin 13.4 g/dL Hematocrit 42.3 % Mean Corpuscular Volume 87.2 fL Mean Corpuscular Hemoglobin 27.6 pg Mean Corpuscular Hemoglobin Concent 31.7 g/dl Platelet Count 301 K/uL Mean Platelet Volume 8.7 fL Neutrophils (%) (Auto) 71.4 % Lymphocytes (%) (Auto) 19.4 % Monocytes (%) (Auto) 7.1 % Eosinophils (%) (Auto) 0.2 % Basophils (%) (Auto) 0.1 % Neutrophils # (Auto) 7.74 K/uL Lymphocytes # (Auto) 2.10 K/uL Monocytes # (Auto) 0.77 K/uL Eosinophils # (Auto) 0.02 K/uL Basophils # (Auto) 0.01 K/uL RDW Standard Deviation 50.6 fL RDW Coefficient of Variation 15.9 % Immature Granulocyte % (Auto) 1.8 % Immature Granulocyte # (Auto) 0.19 K/uL Sodium Level 136 mmol/L Potassium Level 3.7 mmol/L Chloride Level 97 mmol/L Carbon Dioxide Level 32 mmol/L Anion Gap 7.0 mmol/L Blood Urea Nitrogen 30 mg/dl Creatinine 1.20 mg/dl Est Creatinine Clear Calc Drug Dose 78.1 ml/min Estimated GFR () 56.5 Estimated GFR (Non- 48.7 BUN/Creatinine Ratio 24.7 Random Glucose 98 mg/dl Calcium Level 9.2 mg/dl Phosphorus Level 3.7 mg/dl Magnesium Level 2.4 mg/dl Free Triiodothyronine 1.86 pg/ml Bedside Glucose 103 mg/dl 175 mg/dl 137 mg/dl Assessment & Plan ACUTE ON CHRONIC HYPERCAPNIC RESPIRATORY FAILURE Multifactorial secondary to obstructive sleep apnea vs obesity hypoventilation syndrome vs Infuenza A and COPD exacerbation Has a tracheostomy secondary to the above CXR on admission showed no airspace consolidation or large pleural effusion is identified. POC blood gas showed pH: 7.27, CO2 58, O2 69 , Bicarb 27 Repeat CXR showed cardiomegaly with suggestion of volume overload and mild pulmonary edema Continue on bronchodilators and nebulized treatment Will taper solumedrol to 40mg TID Continue ceftriaxone + azithro Sputum cx pending Case discussed with Pulmonary team Will add Mucinex Blood cx growth coag negative staph Urine cx growth gram negative Continue Bipap PRN, was placed over the mouth/nose as patient trach did not seem to have a method of direct connection to bipap Continue trach suctioning ECHO DONE The right ventricle is at least mildly enlarged on limited visualization, with mild to moderate RV hypokinesis. Left ventricular systolic function is normal. Ejection Fraction = 55-60%. Grade I diastolic dysfunction, (abnormal relaxation pattern). The tricuspid regurgitation envelope was inadequate to allow calculation of the pulmonary artery systolic pressure. 3/2 breathing improved today Was off oxygen today CXR yesterday showed Interval improvement in pulmonary vascular congestion. Will changed solumedrol to predinisone tomorrow continue mucinex and neb treatment. Pulmonary on board Seen pt respiratory improved Was back to RA and no tachycardia Doubt about PE Will hold on CTA chest for now Discussed with daughter and patient about the risk for the CTA such as worsening kidney function and kidney failure HYPOTHYROIDISM: TSH 0.156 with Free T4 and Total T3 WNL Has been having some abnormal jerking movement Pt has been on levothyroxine 200mg daily and 300mg on Tuesday and On levothyroxine 200mg daily and 300mg on Tuesday and Will decrease levothyroxine to 200 mcg Free T3 low Abnormal Jerking movement CT head showed no intracranial abnormality Possible related to thyroid etiology vs steroid induced Ammonia level 35.8 Need to r/o T3 thyrotoxicity Will check Free T3 If thyroid work up negative, consider neuro consult Will need to r/o steroid induced also will consider to change the solumedrol to prednisone 3/ Possible related to solumedrol Less jerking movement today Will d/c solumedrol DM TYPE II: On high doses of Lantus and insulin pump. Recent Hba1c 8.5 on 01/15/18 Insulin drip has been discontinue Pharmacy on board for glycemic pharmacy CAD: Denies any chest pain Troponin negative On aspirin and statin Stable CKD STAGE III: Cr on admission 1.4 On lasix 40mg IV TID Creatine improves to 1.2 today Will switch lasix to her home dose torsemide in am Continue monitor BMP MORBID OBESITY: BMI: 76 has limited physical mobility high risk of further deconditioning; PT/OT when stablized DYSLIPIDEMIA: continue on statin. GERD: continue with Protonix. MIGRAINES: continue with Topamax. ANXIETY/DEPRESSION: stable continue on her home medications. DVT px on Heparin subq CODE STATUS FULL CODE Consultants: Pulmonary Current Inpatient Medications: Current Inpatient Medications Medications (Trade) Dose Ordered Sig/Fatoumata Route Start Time Stop Time Status Last Admin Dose Admin Heparin Sodium (Porcine) (Heparin Sq 5000 Unit/0.5ml) 5,000 unit Q8H SQ 01/15/18 01:45 02/14/18 01:44 01/20/18 14:47 5,000 UNIT Acetaminophen (Tylenol Tab) 650 mg Q4H PRN PO 01/15/18 01:45 02/14/18 01:44 Ondansetron HCl (Zofran Inj) 4 mg Q6H PRN IV 01/15/18 01:45 02/14/18 01:44 Levalbuterol (Xopenex 1.25MG/ 0.5ML Neb) 1.25 mg Q4R INH 01/15/18 04:00 02/14/18 03:59 01/20/18 14:26 1.25 MG Ipratropium [place] (Atrovent 0.02% 0.5MG/2.5ML Neb) 0.5 mg Q4R INH 01/15/18 04:00 02/14/18 03:59 01/20/18 14:26 0.5 MG Aspirin (Ecotrin Tab) 81 mg DAILY PO 01/15/18 09:00 02/14/18 08:59 01/20/18 09:22 81 MG Atorvastatin Calcium (Lipitor Tab) 20 mg DAILY PO 01/15/18 09:00 02/14/18 08:59 01/20/18 09:24 20 MG Betamethasone/ Clotrimazole (Lotrisone Crm) 1 appln AMHS EXT 01/15/18 09:00 02/14/18 08:59 01/20/18 09:21 1 APPLN Ergocalciferol (Vitamin D Cap) 50,000 interunit MoWeFr@0900 PO 01/16/18 09:00 02/15/18 08:59 01/20/18 09:22 50,000 INTERUNIT Folic Acid (Folvite Tab) 1 mg DAILY PO 01/15/18 09:00 02/14/18 08:59 01/20/18 09:22 1 MG Isosorbide Mononitrate (Imdur Ext Rel Tab) 60 mg DAILY PO 01/15/18 09:00 02/14/18 08:59 01/20/18 09:24 60 MG Ketoconazole (Nizoral 2% Crm) 1 appln BID EXT 01/15/18 09:00 01/25/18 08:59 01/20/18 09:22 1 APPLN Levothyroxine Sodium (Synthroid Tab) 200 mcg SuTuWeFrSa@0630 PO 01/15/18 06:30 02/14/18 06:29 01/20/18 06:30 200 MCG Levothyroxine Sodium (Synthroid Tab) 300 mcg MoTh@0630 PO 01/16/18 06:30 02/15/18 06:29 01/16/18 05:49 300 MCG Lorazepam (Ativan Tab) 1 mg Q8 PRN PO 01/15/18 03:00 02/14/18 02:59 Metoprolol Tartrate (Lopressor Tab) 12.5 mg BID PO 01/15/18 09:00 02/14/18 08:59 01/20/18 09:24 12.5 MG Montelukast Sodium (Singulair Tab) 10 mg DAILY PO 01/15/18 09:00 02/14/18 08:59 01/20/18 09:23 10 MG Multivitamins (Multivitamin Tab) 1 tab DAILY PO 01/15/18 09:00 02/14/18 08:59 01/20/18 09:23 1 TAB Nitroglycerin (Nitrostat Tab) 0.4 mg UD PRN UT 01/15/18 03:00 02/14/18 02:59 Pantoprazole Sodium (Protonix Tab) 40 mg DAILY PO 01/15/18 09:00 02/14/18 08:59 01/20/18 09:23 40 MG Topiramate (Topamax Tab) 100 mg QAM PO 01/15/18 09:00 02/14/18 08:59 01/20/18 09:23 100 MG Topiramate (Topamax Tab) 200 mg HS PO 01/15/18 21:00 02/14/18 20:59 01/19/18 20:17 200 MG Tramadol HCl (Ultram Tab) 50 mg BID PRN PO 01/15/18 03:00 02/14/18 02:59 Miscellaneous Information (Order Awaiting Action) 1 ea QS N/A 01/15/18 08:00 02/14/18 07:59 Glucose (Glucose 40% Gel) 15-30 GRAMS 15 GRAMS... UD PRN PO 01/15/18 03:45 02/14/18 03:44 Glucose (Glucose Chew Tab) 4-8 Tablets 4 Tabl... UD PRN PO 01/15/18 03:45 02/14/18 03:44 Dextrose (Dextrose 50% 50ML Syringe) 25-50ML OF 50% DW IV FOR... UD PRN IV 01/15/18 03:45 02/14/18 03:44 Glucagon (Glucagon Inj) 1 mg UD PRN SQ 01/15/18 03:45 02/14/18 03:44 Miscellaneous Information (Consult Glycemic Management Pharmacy) 1 ea UD PRN N/A 01/15/18 04:15 02/14/18 04:14 Bupropion HCl (Wellbutrin Tab) 100 mg QAM PO 01/15/18 09:00 02/14/18 08:59 01/20/18 09:23 100 MG Bupropion HCl (Wellbutrin Tab) 200 mg DAILY@1600 PO 01/15/18 16:00 02/14/18 15:59 01/20/18 16:25 200 MG Insulin Glargine (Lantus Solostar Pen) SEE PROTOCOL TEXT BID SC 01/15/18 21:00 02/14/18 20:59 01/20/18 09:16 70 UNITS Guaifenesin (Mucinex Contr Rel Tab) 600 mg Q12 PO 01/17/18 21:00 02/16/18 20:59 01/20/18 09:24 600 MG Insulin Aspart (novoLOG ASPART) SLIDING SCALE ACHS SC 01/17/18 16:45 02/16/18 16:44 01/20/18 16:15 4 UNITS Cefdinir (Omnicef Cap) 300 mg BID PO 01/18/18 21:00 01/21/18 23:59 01/20/18 09:22 300 MG Albuterol/ Ipratropium (Duoneb) 3 ml Q2H PRN INH 01/19/18 04:00 02/18/18 03:59 Furosemide 40 mg/ Syringe 4 ml @ 4 mls/min Q8H IV 01/19/18 14:00 02/14/18 13:59 01/20/18 14:47 4 MLS/MIN Methylprednisolone Sodium Succinate 20 mg/Syringe 0.32 ml @ 1.5 mls/min Q8H IV 01/19/18 12:00 02/16/18 11:59 01/20/18 12:44 1.5 MLS/MIN Multi-Ingredient Ointment (Eucerin Unscented Cr) 1 appln BID EXT 01/20/18 21:00 02/19/18 20:59 Miconazole Nitrate (Desenex Powder) 1 appln BID EXT 01/20/18 21:00 02/19/18 20:59
[2018-01-20] MEDS: MICONAZOLE NITRATE POWDER 43 GM EXT SCH (21:09)
[2018-01-20] MEDS: EUCERIN CR 120 GM JAR EXT SCH (21:09)
[2018-01-21] VITALS (12 sets, daily range): BP systolic 114–186; BP diastolic 63–80; PULSE 77–101; TEMP 36.5–37; O2SAT 89–97
[2018-01-21] MEDS: LEVALBUTEROL 1.25MG/0.5ML NEB INH SCH ×6 (03:19→22:57)
[2018-01-21] MEDS: IPRATROPIUM BROMIDE NEB SOLN 0.02% 2.5 ML VIAL INH SCH ×6 (03:19→22:57)
[2018-01-21] MEDS: FUROSEMIDE INJ 40 MG in SYRINGE 0 ML IV SCH ×3 (05:37→20:41)
[2018-01-21] MEDS: LEVOTHYROXINE 200 MCG TAB PO SCH (05:38)
[2018-01-21] MEDS: HEPARIN SOD 5000 UNIT/0.5 ML CARP SQ SCH ×3 (05:42→21:23)
[2018-01-21] MEDS: CLARINEX~ORDER AWAITING ACTION SCH ×4 (07:40→23:39)
[2018-01-21] MEDS: PANTOprazole SOD 40 MG TAB PO SCH (08:16)
[2018-01-21] MEDS: MONTELUKAST SOD 10 MG TAB PO SCH (08:16)
[2018-01-21] MEDS: ATORVASTATIN 20 MG TAB PO SCH (08:16)
[2018-01-21] MEDS: MULTIVITAMIN TAB PO SCH (08:16)
[2018-01-21] MEDS: METOPROLOL TARTRATE 25 MG TAB PO SCH ×2 (08:16→20:40)
[2018-01-21] MEDS: ISOSORBIDE MONONITRATE 60 MG TABCR PO SCH (08:17)
[2018-01-21] MEDS: GUAIFENESIN 600 MG TABCR PO SCH ×2 (08:17→20:39)
[2018-01-21] MEDS: MICONAZOLE NITRATE POWDER 43 GM EXT SCH ×2 (08:17→20:36)
[2018-01-21] MEDS: ASPIRIN 81 MG ECTAB PO SCH (08:17)
[2018-01-21] MEDS: TOPIRAMATE 100 MG TAB PO SCH ×2 (08:17→20:40)
[2018-01-21] MEDS: EUCERIN CR 120 GM JAR EXT SCH ×2 (08:18→20:36)
[2018-01-21] MEDS: CEFDINIR 300 MG CAP PO SCH ×2 (08:18→20:38)
[2018-01-21] MEDS: CLOTRIMAZOLE/BETAMETHASONE CR 15 GM TUBE EXT SCH ×2 (08:18→20:38)
[2018-01-21] MEDS: KETOCONAZOLE 2% CR 15 GM TUBE EXT SCH ×2 (08:18→20:37)
[2018-01-21] MEDS: INSULIN ASPART 100 UNITS/ML 3 ML PEN SC SCH ×4 (10:22→21:21)
[2018-01-21] MEDS: INSULIN GLARGINE SOLOSTAR 100 UNITS/ML 3 ML PEN SC SCH ×2 (10:23→21:22)
[2018-01-21 10:30] LABS: HEMATOCRIT 43.6 % (37-47); HEMOGLOBIN 13.8 g/dL (12.0-16.0); MEAN CELL VOLUME 88.1 fL (80-100); MEAN CORPUSCULAR HEMOGLOBIN 27.9 pg (25-34); MEAN CORPUSCULAR HGB CONC 31.7 g/dl (32-36); PLATELET COUNT 311 K/uL (130-400); RED CELL DISTRIBUTION WIDTH CV 16.1 % (11.5-14.5); RED CELL DISTRIBUTION WIDTH SD 51.9 fL (36.4-46.3); WHITE BLOOD COUNT 13.29 K/uL (4.8-10.8)
[2018-01-21 11:02] LABS: CALCIUM 9.2 mg/dl (8.5-10.1); CREATININE 1.34 mg/dl (0.60-1.20); POTASSIUM 3.1 mmol/L (3.5-5.1)
--- NOTE | 2018-01-21 12:23 | Pharmacy Progress Note ---
Pharmacy Glycemic Short Note 2 Date of Service Jan 21, 2018. OUTPATIENT ANTIDIABETIC REGIMEN: * Humalog insulin pump * Basal rate: 00-02 - 6.5 units/hr - - 7 units/hr - - 6.5 units/hr * Correction factor: 15 * Carb ratio: 1 units per 2 gram of carbs * Goal range: 110-130 ASSESSMENT: * See progress note from 01/15/18 for more background info, in short: * Pt receiving SQ basal bolus insulin regimen for hyperglycemia secondary to baseline DM (outpatient regimen on hold), stress/infection, & steroids. * Solu-medrol IV was tapered slowly - now changed to prednisone 40mg PO daily * Patient received 187 units of SQ insulin over the past 24 hours: * 145 units of basal insulin * 42 units of prandial/correctional insulin * BSGs: 103, 175, 137, 187 * Changes needed to insulin regimen: BASAL INSULIN DOSING: * AM Fasting BSG = 94 mg/dl. This is at goal range for patient based on inpatient targets and co-morbidities, however AM fasting BSG continues to trend downwards. Possible hypoglycemia in the next few days if dosing is not empirically reduced especially with the step down in steroid dosing * Since majority of regimen is all basal insulin it appears that the basal insulin is covering some prandial needs as well as basal insulin needs. This puts patient at risk for hypoglycemia when PO intake decreases. * Will decrease basal insulin dosing and continue to titrate based on BSG trends. BOLUS INSULIN DOSING * Empirically decrease in accordance with steroid taper * Once steroids are transitioned to oral, I anticipate being able to resume home insulin pump. PLAN FOR INPATIENT GLYCEMIC CONTROL: * Basal insulin - decrease * LANTUS 50 units SQ x 1 gilmore this AM for BSG = 94mg, then * 55 units for BSG less than 140, 65 units for BSG 140 mg/dL or more * Bolus Insulin- decrease * NOVOLOG per scale ACHS or Q6hrs while NPO * Correction Factor: 10 mg/dL/unit * Carb ratio of 1 unit per 2 grams CHO consumed DISCHARGE RECOMMENDATIONS: * A1c = 8.5% on 01/15/18 * This is in range for patient based on age and comorbidities. * Continue Humalog insulin pump on discharge. 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
[2018-01-21] MEDS ORDERED: POTASSIUM CHLORIDE 20 MEQ TABCR PO ONE (15:45)
--- NOTE | 2018-01-21 17:11 | Progress Note ---
Medicine Progress Note Date & Time of Visit: Jan 21, 2018 at 08:00. Subjective Pt was seen and examined Sitting on the recliner with no distress Pt said that she feels much better today She is very awake today She does not have the abnormal jerking movement anymore Denies any chest pain, palpitation, dizziness and fever Objective Last 8 Hrs Date Time Temp Pulse Resp B/P (MAP) Pulse Ox O2 Delivery O2 Flow Rate FiO2 01/21/18 16:00 Trach Collar 5.0 01/21/18 15:18 36.8 92 20 186/63 (104) 89 Trach Collar 8.0 01/21/18 14:40 92 18 94 Trach Collar 8.0 30 01/21/18 12:00 Trach Collar 5.0 01/21/18 11:36 36.8 87 24 132/73 (92) 93 T-piece 5.0 30 01/21/18 11:13 89 18 93 Trach Collar 8.0 30 Physical Exam: General- No acute distress Head- atraumatic Eyes- PERRL, EOMI ENT- oropharynx clear Neck- supple, no JVD Lungs- +mild wheezing Heart- regular rhythm; no murmur Abdomen- normal bowel sounds, soft Extremities- +Edema Neuro- alert, but slow response, abnormal jerking movement Skin- warm & dry Laboratory Results: Last 24 Hours Test 01/20/18 20:55 01/21/18 03:02 01/21/18 05:35 01/21/18 08:50 Bedside Glucose 187 mg/dl 90 mg/dl 94 mg/dl 164 mg/dl Test 01/21/18 09:54 01/21/18 10:03 01/21/18 10:56 01/21/18 14:50 White Blood Count 13.29 K/uL Red Blood Count 4.95 M/uL Hemoglobin 13.8 g/dL Hematocrit 43.6 % Mean Corpuscular Volume 88.1 fL Mean Corpuscular Hemoglobin 27.9 pg Mean Corpuscular Hemoglobin Concent 31.7 g/dl RDW Standard Deviation 51.9 fL RDW Coefficient of Variation 16.1 % Platelet Count 311 K/uL Mean Platelet Volume 9.0 fL Sodium Level 135 mmol/L Potassium Level 3.1 mmol/L Chloride Level 94 mmol/L Carbon Dioxide Level 34 mmol/L Anion Gap 8.0 mmol/L Blood Urea Nitrogen 32 mg/dl Creatinine 1.34 mg/dl Est Creatinine Clear Calc Drug Dose 69.1 ml/min Estimated GFR () 49.4 Estimated GFR (Non- 42.7 BUN/Creatinine Ratio 23.7 Random Glucose 158 mg/dl Calcium Level 9.2 mg/dl Bedside Glucose 160 mg/dl 141 mg/dl 111 mg/dl Assessment & Plan ACUTE ON CHRONIC HYPERCAPNIC RESPIRATORY FAILURE Multifactorial secondary to obstructive sleep apnea vs obesity hypoventilation syndrome vs Infuenza A and COPD exacerbation Has a tracheostomy secondary to the above CXR on admission showed no airspace consolidation or large pleural effusion is identified. POC blood gas showed pH: 7.27, CO2 58, O2 69 , Bicarb 27 Repeat CXR showed cardiomegaly with suggestion of volume overload and mild pulmonary edema Continue on bronchodilators and nebulized treatment Will taper solumedrol to 40mg TID Continue ceftriaxone + azithro Sputum cx pending Case discussed with Pulmonary team Will add Mucinex Blood cx growth coag negative staph Urine cx growth gram negative Continue Bipap PRN, was placed over the mouth/nose as patient trach did not seem to have a method of direct connection to bipap Continue trach suctioning ECHO DONE The right ventricle is at least mildly enlarged on limited visualization, with mild to moderate RV hypokinesis. Left ventricular systolic function is normal. Ejection Fraction = 55-60%. Grade I diastolic dysfunction, (abnormal relaxation pattern). The tricuspid regurgitation envelope was inadequate to allow calculation of the pulmonary artery systolic pressure. 3/2 breathing improved today Was off oxygen today CXR yesterday showed Interval improvement in pulmonary vascular congestion. Will changed solumedrol to predinisone tomorrow continue mucinex and neb treatment. Pulmonary on board Seen pt respiratory improved Was back to RA and no tachycardia Doubt about PE Will hold on CTA chest for now Discussed with daughter and patient about the risk for the CTA such as worsening kidney function and kidney failure 3/3 Clinically improved significantly starting on prednisone 40mg Did not do well with solumedrol because she was drowsy with slow response continue respiratory treatment Diuresis very well HYPOTHYROIDISM: TSH 0.156 with Free T4 and Total T3 WNL Has been having some abnormal jerking movement Pt has been on levothyroxine 200mg daily and 300mg on Tuesday and On levothyroxine 200mg daily and 300mg on Tuesday and Will decrease levothyroxine to 200 mcg daily and 300mg on Tuesday Free T3 low Abnormal Jerking movement CT head showed no intracranial abnormality Possible related to thyroid etiology vs steroid induced Ammonia level 35.8 Need to r/o T3 thyrotoxicity Will check Free T3 If thyroid work up negative, consider neuro consult Will need to r/o steroid induced also will consider to change the solumedrol to prednisone / Possible related to solumedrol Solumedrol d/c No jerking movements Resolved DM TYPE II: On high doses of Lantus and insulin pump. Recent Hba1c 8.5 on 01/15/18 Insulin drip has been discontinue Pharmacy on board for glycemic pharmacy CAD: Denies any chest pain Troponin negative On aspirin and statin Stable CKD STAGE III: Cr on admission 1.4 On lasix 40mg IV TID Creatine improves to 1.3 today Will switch lasix to torsemide 40mg Continue monitor BMP MORBID OBESITY: BMI: 76 has limited physical mobility high risk of further deconditioning; PT/OT when stablized DYSLIPIDEMIA: continue on statin. GERD: continue with Protonix. MIGRAINES: continue with Topamax. ANXIETY/DEPRESSION: stable continue on her home medications. DVT px on Heparin subq CODE STATUS FULL CODE Consultants: Pulmonary Current Inpatient Medications: Current Inpatient Medications Medications (Trade) Dose Ordered Sig/Fatoumata Route Start Time Stop Time Status Last Admin Dose Admin Heparin Sodium (Porcine) (Heparin Sq 5000 Unit/0.5ml) 5,000 unit Q8H SQ 01/15/18 01:45 02/14/18 01:44 01/21/18 14:47 5,000 UNIT Acetaminophen (Tylenol Tab) 650 mg Q4H PRN PO 01/15/18 01:45 02/14/18 01:44 Ondansetron HCl (Zofran Inj) 4 mg Q6H PRN IV 01/15/18 01:45 02/14/18 01:44 Levalbuterol (Xopenex 1.25MG/ 0.5ML Neb) 1.25 mg Q4R INH 01/15/18 04:00 02/14/18 03:59 01/21/18 14:40 1.25 MG Ipratropium [place] (Atrovent 0.02% 0.5MG/2.5ML Neb) 0.5 mg Q4R INH 01/15/18 04:00 02/14/18 03:59 01/21/18 14:40 0.5 MG Aspirin (Ecotrin Tab) 81 mg DAILY PO 01/15/18 09:00 02/14/18 08:59 01/21/18 08:17 81 MG Atorvastatin Calcium (Lipitor Tab) 20 mg DAILY PO 01/15/18 09:00 02/14/18 08:59 01/21/18 08:16 20 MG Betamethasone/ Clotrimazole (Lotrisone Crm) 1 appln AMHS EXT 01/15/18 09:00 02/14/18 08:59 01/21/18 08:18 1 APPLN Ergocalciferol (Vitamin D Cap) 50,000 interunit MoWeFr@0900 PO 01/16/18 09:00 02/15/18 08:59 01/20/18 09:22 50,000 INTERUNIT Folic Acid (Folvite Tab) 1 mg DAILY PO 01/15/18 09:00 02/14/18 08:59 01/21/18 08:16 1 MG Isosorbide Mononitrate (Imdur Ext Rel Tab) 60 mg DAILY PO 01/15/18 09:00 02/14/18 08:59 01/21/18 08:17 60 MG Ketoconazole (Nizoral 2% Crm) 1 appln BID EXT 01/15/18 09:00 01/25/18 08:59 01/21/18 08:18 1 APPLN Levothyroxine Sodium (Synthroid Tab) 200 mcg SuTuWeFrSa@0630 PO 01/15/18 06:30 02/14/18 06:29 01/21/18 05:38 200 MCG Levothyroxine Sodium (Synthroid Tab) 300 mcg MoTh@0630 PO 01/16/18 06:30 02/15/18 06:29 01/16/18 05:49 300 MCG Lorazepam (Ativan Tab) 1 mg Q8 PRN PO 01/15/18 03:00 02/14/18 02:59 Metoprolol Tartrate (Lopressor Tab) 12.5 mg BID PO 01/15/18 09:00 02/14/18 08:59 01/21/18 08:16 12.5 MG Montelukast Sodium (Singulair Tab) 10 mg DAILY PO 01/15/18 09:00 02/14/18 08:59 01/21/18 08:16 10 MG Multivitamins (Multivitamin Tab) 1 tab DAILY PO 01/15/18 09:00 02/14/18 08:59 01/21/18 08:16 1 TAB Nitroglycerin (Nitrostat Tab) 0.4 mg UD PRN UT 01/15/18 03:00 02/14/18 02:59 Pantoprazole Sodium (Protonix Tab) 40 mg DAILY PO 01/15/18 09:00 02/14/18 08:59 01/21/18 08:16 40 MG Topiramate (Topamax Tab) 100 mg QAM PO 01/15/18 09:00 02/14/18 08:59 01/21/18 08:17 100 MG Topiramate (Topamax Tab) 200 mg HS PO 01/15/18 21:00 02/14/18 20:59 01/20/18 21:10 200 MG Tramadol HCl (Ultram Tab) 50 mg BID PRN PO 01/15/18 03:00 02/14/18 02:59 Miscellaneous Information (Order Awaiting Action) 1 ea QS N/A 01/15/18 08:00 02/14/18 07:59 Glucose (Glucose 40% Gel) 15-30 GRAMS 15 GRAMS... UD PRN PO 01/15/18 03:45 02/14/18 03:44 Glucose (Glucose Chew Tab) 4-8 Tablets 4 Tabl... UD PRN PO 01/15/18 03:45 02/14/18 03:44 Dextrose (Dextrose 50% 50ML Syringe) 25-50ML OF 50% DW IV FOR... UD PRN IV 01/15/18 03:45 02/14/18 03:44 Glucagon (Glucagon Inj) 1 mg UD PRN SQ 01/15/18 03:45 02/14/18 03:44 Miscellaneous Information (Consult Glycemic Management Pharmacy) 1 ea UD PRN N/A 01/15/18 04:15 02/14/18 04:14 Bupropion HCl (Wellbutrin Tab) 100 mg QAM PO 01/15/18 09:00 02/14/18 08:59 01/21/18 08:17 100 MG Bupropion HCl (Wellbutrin Tab) 200 mg DAILY@1600 PO 01/15/18 16:00 02/14/18 15:59 01/20/18 16:25 200 MG Insulin Glargine (Lantus Solostar Pen) SEE PROTOCOL TEXT BID SC 01/15/18 21:00 02/14/18 20:59 01/21/18 10:23 50 UNITS Guaifenesin (Mucinex Contr Rel Tab) 600 mg Q12 PO 01/17/18 21:00 02/16/18 20:59 01/21/18 08:17 600 MG Insulin Aspart (novoLOG ASPART) SLIDING SCALE ACHS SC 01/17/18 16:45 02/16/18 16:44 01/21/18 12:18 36 UNITS Cefdinir (Omnicef Cap) 300 mg BID PO 01/18/18 21:00 01/21/18 23:59 01/21/18 08:18 300 MG Albuterol/ Ipratropium (Duoneb) 3 ml Q2H PRN INH 01/19/18 04:00 02/18/18 03:59 Furosemide 40 mg/ Syringe 4 ml @ 4 mls/min Q8H IV 01/19/18 14:00 02/14/18 13:59 01/21/18 14:43 4 MLS/MIN Multi-Ingredient Ointment (Eucerin Unscented Cr) 1 appln BID EXT 01/20/18 21:00 02/19/18 20:59 01/21/18 08:18 1 APPLN Miconazole Nitrate (Desenex Powder) 1 appln BID EXT 01/20/18 21:00 02/19/18 20:59 01/21/18 08:17 1 APPLN Prednisone (PredniSONE TAB) 40 mg DAILY PO 01/22/18 09:00 02/21/18 08:59
[2018-01-21 18:20] LABS: HEMATOCRIT 43.4 % (37-47); HEMOGLOBIN 13.8 g/dL (12.0-16.0); MEAN CELL VOLUME 87.9 fL (80-100); MEAN CORPUSCULAR HEMOGLOBIN 27.9 pg (25-34); MEAN CORPUSCULAR HGB CONC 31.8 g/dl (32-36); PLATELET COUNT 283 K/uL (130-400); RED CELL DISTRIBUTION WIDTH CV 15.9 % (11.5-14.5); RED CELL DISTRIBUTION WIDTH SD 51.8 fL (36.4-46.3)
[2018-01-21] MEDS: LORAZEPAM 1 MG TAB PO PRN (21:01)
[2018-01-22] VITALS (13 sets, daily range): BP systolic 116–145; BP diastolic 66–81; PULSE 79–96; TEMP 36.4–36.7; O2SAT 88–97
[2018-01-22] MEDS: LEVALBUTEROL 1.25MG/0.5ML NEB INH SCH ×6 (03:53→23:20)
[2018-01-22] MEDS: IPRATROPIUM BROMIDE NEB SOLN 0.02% 2.5 ML VIAL INH SCH ×6 (03:53→23:20)
[2018-01-22] MEDS: FUROSEMIDE INJ 40 MG in SYRINGE 0 ML IV SCH (06:08)
[2018-01-22] MEDS: LEVOTHYROXINE 200 MCG TAB PO SCH (06:11)
[2018-01-22] MEDS: HEPARIN SOD 5000 UNIT/0.5 ML CARP SQ SCH ×3 (06:13→21:28)
[2018-01-22] MEDS: INSULIN ASPART 100 UNITS/ML 3 ML PEN SC SCH ×4 (08:00→21:26)
[2018-01-22 08:15] LABS: CALCIUM 9.4 mg/dl (8.5-10.1); CREATININE 1.46 mg/dl (0.60-1.20); POTASSIUM 3.4 mmol/L (3.5-5.1)
[2018-01-22] MEDS ORDERED: POTASSIUM CHLORIDE 20 MEQ TABCR PO ONE (08:30)
[2018-01-22] MEDS: MICONAZOLE NITRATE POWDER 43 GM EXT SCH ×2 (09:43→20:24)
[2018-01-22] MEDS: EUCERIN CR 120 GM JAR EXT SCH ×2 (09:43→20:22)
[2018-01-22] MEDS: KETOCONAZOLE 2% CR 15 GM TUBE EXT SCH ×2 (09:44→20:22)
[2018-01-22] MEDS: MULTIVITAMIN TAB PO SCH (09:45)
[2018-01-22] MEDS: MONTELUKAST SOD 10 MG TAB PO SCH (09:45)
[2018-01-22] MEDS: ISOSORBIDE MONONITRATE 60 MG TABCR PO SCH (09:45)
[2018-01-22] MEDS: TOPIRAMATE 100 MG TAB PO SCH ×2 (09:45→21:14)
[2018-01-22] MEDS: GUAIFENESIN 600 MG TABCR PO SCH ×2 (09:45→21:14)
[2018-01-22] MEDS: PANTOprazole SOD 40 MG TAB PO SCH (09:45)
[2018-01-22] MEDS: ASPIRIN 81 MG ECTAB PO SCH (09:46)
[2018-01-22] MEDS: METOPROLOL TARTRATE 25 MG TAB PO SCH ×2 (09:46→21:15)
[2018-01-22] MEDS: ATORVASTATIN 20 MG TAB PO SCH (09:46)
[2018-01-22] MEDS: CLOTRIMAZOLE/BETAMETHASONE CR 15 GM TUBE EXT SCH ×2 (09:48→20:23)
[2018-01-22] MEDS: INSULIN GLARGINE SOLOSTAR 100 UNITS/ML 3 ML PEN SC SCH ×2 (09:54→21:27)
--- NOTE | 2018-01-22 12:51 | PULMONARY PROGRESS NOTE ---
DATE: 01/22/2018 TIME: 11:30 a.m. SUBJECTIVE: The patient feels much better. She feels her breathing is almost back to baseline. She notices just a little wheezing. She is awake and alert. She does not feel disoriented at all. She does not know what happened to her a couple of days ago when she had the change in mental status. Her daughter and other family members were with her during this evaluation. OBJECTIVE: GENERAL: The patient appears comfortable. She was sitting in a chair. Trach is in place. VITAL SIGNS: Temperature is 36.4. HEART: The heart rate is 86 per minute. The rhythm regular. Blood pressure 129/73. LUNGS: Auscultation of the lung hale do reveal mild wheezing bilaterally both anteriorly and posteriorly. She was in no distress. CHEST: The respiratory rate was 24 per minute, but she was getting a nebulizer treatment. Oxygen saturation earlier this morning was apparently with the trach collar removed. It was 88%. LABORATORY DATA: Electrolytes today show sodium 135, potassium 3.4, chloride 94, bicarbonate 35, BUN is 32 with a creatinine of 1.46, the prior creatinine 1 day earlier was 1.34. IMPRESSIONS: 1. Respiratory failure with acute on chronic hypoxia and hypercarbia. 2. Influenza A. 3. Chronic obstructive pulmonary disease exacerbation. 4. Morbid obesity. COMMENTS: The patient seems to be doing well. She indicated that she was told she may be going home tomorrow. I have no objections to that based upon her current status. The prednisone can be gradually tapered as an outpatient. She would need to follow up with Chuck Malin PA-C for pulmonary followup. Thus, pulmonary will sign off for now. Please call if we can help in any way.
--- NOTE | 2018-01-22 17:03 | Progress Note ---
Medicine Progress Note Date & Time of Visit: Jan 22, 2018 at 16:55. Subjective Pt was seen and examined Sitting in the recliner chair with no distress with daughter at bedside Pt said that she feels good She said that she seems that her breathing is back to baseline No change in mental status No more jerking movement denies any chest pain, palpitation and SOB Objective Last 8 Hrs Date Time Temp Pulse Resp B/P (MAP) Pulse Ox O2 Delivery O2 Flow Rate FiO2 01/22/18 15:51 36.7 86 20 127/76 (93) 90 Room Air 01/22/18 14:52 93 16 90 Room Air 01/22/18 12:01 36.6 87 24 116/70 (85) 88 Trach Collar 01/22/18 12:00 Trach Collar 8.0 30 01/22/18 11:12 87 16 90 Room Air Physical Exam: General- No acute distress Head- atraumatic Eyes- PERRL, EOMI ENT- oropharynx clear Neck- supple, no JVD Lungs- +mild wheezing Heart- regular rhythm; no murmur Abdomen- normal bowel sounds, soft Extremities- +Edema Neuro- alert, but slow response, abnormal jerking movement Skin- warm & dry Laboratory Results: Last 24 Hours Test 01/21/18 18:00 01/21/18 20:50 01/22/18 07:22 01/22/18 07:24 White Blood Count 14.00 K/uL Red Blood Count 4.94 M/uL Hemoglobin 13.8 g/dL Hematocrit 43.4 % Mean Corpuscular Volume 87.9 fL Mean Corpuscular Hemoglobin 27.9 pg Mean Corpuscular Hemoglobin Concent 31.8 g/dl RDW Standard Deviation 51.8 fL RDW Coefficient of Variation 15.9 % Platelet Count 283 K/uL Mean Platelet Volume 9.0 fL Bedside Glucose 213 mg/dl 127 mg/dl Sodium Level 135 mmol/L Potassium Level 3.4 mmol/L Chloride Level 94 mmol/L Carbon Dioxide Level 35 mmol/L Anion Gap 6.0 mmol/L Blood Urea Nitrogen 32 mg/dl Creatinine 1.46 mg/dl Est Creatinine Clear Calc Drug Dose 60.0 ml/min Estimated GFR () 44.6 Estimated GFR (Non- 38.4 BUN/Creatinine Ratio 21.6 Random Glucose 120 mg/dl Calcium Level 9.4 mg/dl Chemistry Specimen Hemolysis Test 01/22/18 16:12 Bedside Glucose 231 mg/dl Assessment & Plan ACUTE ON CHRONIC HYPERCAPNIC RESPIRATORY FAILURE Multifactorial secondary to obstructive sleep apnea vs obesity hypoventilation syndrome vs Infuenza A and COPD exacerbation Has a tracheostomy secondary to the above CXR on admission showed no airspace consolidation or large pleural effusion is identified. POC blood gas showed pH: 7.27, CO2 58, O2 69 , Bicarb 27 Repeat CXR showed cardiomegaly with suggestion of volume overload and mild pulmonary edema Continue on bronchodilators and nebulized treatment Will taper solumedrol to 40mg TID Continue ceftriaxone + azithro Sputum cx pending Case discussed with Pulmonary team Will add Mucinex Blood cx growth coag negative staph Urine cx growth gram negative Continue Bipap PRN, was placed over the mouth/nose as patient trach did not seem to have a method of direct connection to bipap Continue trach suctioning ECHO DONE The right ventricle is at least mildly enlarged on limited visualization, with mild to moderate RV hypokinesis. Left ventricular systolic function is normal. Ejection Fraction = 55-60%. Grade I diastolic dysfunction, (abnormal relaxation pattern). The tricuspid regurgitation envelope was inadequate to allow calculation of the pulmonary artery systolic pressure. 3/2 breathing improved today Was off oxygen today CXR yesterday showed Interval improvement in pulmonary vascular congestion. Will changed solumedrol to predinisone tomorrow continue mucinex and neb treatment. Pulmonary on board Seen pt respiratory improved Was back to RA and no tachycardia Doubt about PE Will hold on CTA chest for now Discussed with daughter and patient about the risk for the CTA such as worsening kidney function and kidney failure 3/4 Clinically improved significantly Continue prednisone 40mg daily and slowly taper continue respiratory treatment Continue oxygen at night Diuresis very well, Output -26L Will change lasix to torsemide Will need follow up with pulmonology Continue monitor HYPOTHYROIDISM: TSH 0.156 with Free T4 and Total T3 WNL Has been having some abnormal jerking movement Pt has been on levothyroxine 200mg daily and 300mg on Tuesday and On levothyroxine 200mg daily and 300mg on Tuesday and Will decrease levothyroxine to 200 mcg daily and 300mg on Tuesday Free T3 low Abnormal Jerking movement CT head showed no intracranial abnormality Possible related to thyroid etiology vs steroid induced Ammonia level 35.8 Need to r/o T3 thyrotoxicity Will check Free T3 If thyroid work up negative, consider neuro consult Will need to r/o steroid induced also will consider to change the solumedrol to prednisone 3/3 Possible related to solumedrol Solumedrol d/c No jerking movements Resolved DM TYPE II: On high doses of Lantus and insulin pump. Recent Hba1c 8.5 on 01/15/18 Insulin drip has been discontinue Pharmacy on board for glycemic pharmacy CAD: Denies any chest pain Troponin negative On aspirin and statin Stable CKD STAGE III: Cr on admission 1.4 On lasix 40mg IV TID Creatine improves to 1.4today Will switch lasix to torsemide 20mg BID Continue monitor BMP HYPOKALEMIA K 3.4 K replaced MORBID OBESITY: BMI: 76 has limited physical mobility high risk of further deconditioning; PT/OT when stablized DYSLIPIDEMIA: continue on statin. GERD: continue with Protonix. MIGRAINES: continue with Topamax. ANXIETY/DEPRESSION: stable continue on her home medications. DVT px on Heparin subq CODE STATUS FULL CODE Consultants: Pulmonary Current Inpatient Medications: Current Inpatient Medications Medications (Trade) Dose Ordered Sig/Fatoumata Route Start Time Stop Time Status Last Admin Dose Admin Heparin Sodium (Porcine) (Heparin Sq 5000 Unit/0.5ml) 5,000 unit Q8H SQ 01/15/18 01:45 02/14/18 01:44 01/22/18 13:56 5,000 UNIT Acetaminophen (Tylenol Tab) 650 mg Q4H PRN PO 01/15/18 01:45 02/14/18 01:44 Ondansetron HCl (Zofran Inj) 4 mg Q6H PRN IV 01/15/18 01:45 02/14/18 01:44 Levalbuterol (Xopenex 1.25MG/ 0.5ML Neb) 1.25 mg Q4R INH 01/15/18 04:00 02/14/18 03:59 01/22/18 14:50 1.25 MG Ipratropium [place] (Atrovent 0.02% 0.5MG/2.5ML Neb) 0.5 mg Q4R INH 01/15/18 04:00 02/14/18 03:59 01/22/18 14:50 0.5 MG Aspirin (Ecotrin Tab) 81 mg DAILY PO 01/15/18 09:00 02/14/18 08:59 01/22/18 09:46 81 MG Atorvastatin Calcium (Lipitor Tab) 20 mg DAILY PO 01/15/18 09:00 02/14/18 08:59 01/22/18 09:46 20 MG Betamethasone/ Clotrimazole (Lotrisone Crm) 1 appln AMHS EXT 01/15/18 09:00 02/14/18 08:59 01/22/18 09:48 1 APPLN Ergocalciferol (Vitamin D Cap) 50,000 interunit MoWeFr@0900 PO 01/16/18 09:00 02/15/18 08:59 01/20/18 09:22 50,000 INTERUNIT Folic Acid (Folvite Tab) 1 mg DAILY PO 01/15/18 09:00 02/14/18 08:59 01/22/18 09:46 1 MG Isosorbide Mononitrate (Imdur Ext Rel Tab) 60 mg DAILY PO 01/15/18 09:00 02/14/18 08:59 01/22/18 09:45 60 MG Ketoconazole (Nizoral 2% Crm) 1 appln BID EXT 01/15/18 09:00 01/25/18 08:59 01/22/18 09:44 1 APPLN Levothyroxine Sodium (Synthroid Tab) 200 mcg SuTuWeFrSa@0630 PO 01/15/18 06:30 02/14/18 06:29 01/22/18 06:11 200 MCG Levothyroxine Sodium (Synthroid Tab) 300 mcg MoTh@0630 PO 01/16/18 06:30 02/15/18 06:29 01/16/18 05:49 300 MCG Lorazepam (Ativan Tab) 1 mg Q8 PRN PO 01/15/18 03:00 02/14/18 02:59 01/21/18 21:01 1 MG Metoprolol Tartrate (Lopressor Tab) 12.5 mg BID PO 01/15/18 09:00 02/14/18 08:59 01/22/18 09:46 12.5 MG Montelukast Sodium (Singulair Tab) 10 mg DAILY PO 01/15/18 09:00 02/14/18 08:59 01/22/18 09:45 10 MG Multivitamins (Multivitamin Tab) 1 tab DAILY PO 01/15/18 09:00 02/14/18 08:59 01/22/18 09:45 1 TAB Nitroglycerin (Nitrostat Tab) 0.4 mg UD PRN UT 01/15/18 03:00 02/14/18 02:59 Pantoprazole Sodium (Protonix Tab) 40 mg DAILY PO 01/15/18 09:00 02/14/18 08:59 01/22/18 09:45 40 MG Topiramate (Topamax Tab) 100 mg QAM PO 01/15/18 09:00 02/14/18 08:59 01/22/18 09:45 100 MG Topiramate (Topamax Tab) 200 mg HS PO 01/15/18 21:00 02/14/18 20:59 01/21/18 20:40 200 MG Tramadol HCl (Ultram Tab) 50 mg BID PRN PO 01/15/18 03:00 02/14/18 02:59 Miscellaneous Information (Order Awaiting Action) 1 ea QS N/A 01/15/18 08:00 02/14/18 07:59 Glucose (Glucose 40% Gel) 15-30 GRAMS 15 GRAMS... UD PRN PO 01/15/18 03:45 02/14/18 03:44 Glucose (Glucose Chew Tab) 4-8 Tablets 4 Tabl... UD PRN PO 01/15/18 03:45 02/14/18 03:44 Dextrose (Dextrose 50% 50ML Syringe) 25-50ML OF 50% DW IV FOR... UD PRN IV 01/15/18 03:45 02/14/18 03:44 Glucagon (Glucagon Inj) 1 mg UD PRN SQ 01/15/18 03:45 02/14/18 03:44 Miscellaneous Information (Consult Glycemic Management Pharmacy) 1 ea UD PRN N/A 01/15/18 04:15 02/14/18 04:14 Bupropion HCl (Wellbutrin Tab) 100 mg QAM PO 01/15/18 09:00 02/14/18 08:59 01/22/18 09:46 100 MG Bupropion HCl (Wellbutrin Tab) 200 mg DAILY@1600 PO 01/15/18 16:00 02/14/18 15:59 01/21/18 17:34 200 MG Insulin Glargine (Lantus Solostar Pen) SEE PROTOCOL TEXT BID SC 01/15/18 21:00 02/14/18 20:59 01/22/18 09:54 55 UNITS Guaifenesin (Mucinex Contr Rel Tab) 600 mg Q12 PO 01/17/18 21:00 02/16/18 20:59 01/22/18 09:45 600 MG Insulin Aspart (novoLOG ASPART) SLIDING SCALE ACHS SC 01/17/18 16:45 02/16/18 16:44 01/22/18 12:41 23 UNITS Albuterol/ Ipratropium (Duoneb) 3 ml Q2H PRN INH 01/19/18 04:00 02/18/18 03:59 Multi-Ingredient Ointment (Eucerin Unscented Cr) 1 appln BID EXT 01/20/18 21:00 02/19/18 20:59 01/22/18 09:43 1 APPLN Miconazole Nitrate (Desenex Powder) 1 appln BID EXT 01/20/18 21:00 02/19/18 20:59 01/22/18 09:43 1 APPLN Prednisone (PredniSONE TAB) 40 mg DAILY PO 01/22/18 09:00 02/21/18 08:59 01/22/18 09:45 40 MG
[2018-01-22] MEDS: TORSEMIDE 20 MG TAB PO SCH (21:13)
[2018-01-22] MEDS: LORAZEPAM 1 MG TAB PO PRN (21:13)
[2018-01-23] VITALS (8 sets, daily range): BP systolic 103–114; BP diastolic 47–68; PULSE 70–92; TEMP 36.3–36.8; O2SAT 88–97
[2018-01-23] MEDS: LEVALBUTEROL 1.25MG/0.5ML NEB INH SCH ×4 (03:05→15:20)
[2018-01-23] MEDS: IPRATROPIUM BROMIDE NEB SOLN 0.02% 2.5 ML VIAL INH SCH ×4 (03:05→15:20)
[2018-01-23] MEDS: HEPARIN SOD 5000 UNIT/0.5 ML CARP SQ SCH ×2 (06:01→14:08)
[2018-01-23] MEDS: LEVOTHYROXINE 150 MCG TAB PO SCH (06:02)
[2018-01-23] MEDS: CLARINEX~ORDER AWAITING ACTION SCH ×2 (08:00)
[2018-01-23 08:17] LABS: CALCIUM 9.1 mg/dl (8.5-10.1); CREATININE 1.46 mg/dl (0.60-1.20); POTASSIUM 3.3 mmol/L (3.5-5.1)
[2018-01-23] MEDS: MICONAZOLE NITRATE POWDER 43 GM EXT SCH (08:30)
[2018-01-23] MEDS: TOPIRAMATE 100 MG TAB PO SCH (08:30)
[2018-01-23] MEDS: EUCERIN CR 120 GM JAR EXT SCH (08:30)
[2018-01-23] MEDS: MONTELUKAST SOD 10 MG TAB PO SCH (08:30)
[2018-01-23] MEDS: ERGOCALCIFEROL 50,000 INTER.UNIT CAP PO SCH (08:30)
[2018-01-23] MEDS: TORSEMIDE 20 MG TAB PO SCH (08:31)
[2018-01-23] MEDS: GUAIFENESIN 600 MG TABCR PO SCH (08:31)
[2018-01-23] MEDS: ISOSORBIDE MONONITRATE 60 MG TABCR PO SCH (08:31)
[2018-01-23] MEDS: METOPROLOL TARTRATE 25 MG TAB PO SCH (08:32)
[2018-01-23] MEDS: ASPIRIN 81 MG ECTAB PO SCH (08:32)
[2018-01-23] MEDS: PANTOprazole SOD 40 MG TAB PO SCH (08:32)
[2018-01-23] MEDS: MULTIVITAMIN TAB PO SCH (08:33)
[2018-01-23] MEDS: ATORVASTATIN 20 MG TAB PO SCH (08:33)
[2018-01-23] MEDS: KETOCONAZOLE 2% CR 15 GM TUBE EXT SCH (08:34)
[2018-01-23] MEDS: CLOTRIMAZOLE/BETAMETHASONE CR 15 GM TUBE EXT SCH (08:34)
[2018-01-23] MEDS: INSULIN ASPART 100 UNITS/ML 3 ML PEN SC SCH ×2 (08:40→13:01)
[2018-01-23] MEDS ORDERED: POTASSIUM CHLORIDE 10 MEQ TABCR PO ONE (08:45)
[2018-01-23] MEDS ORDERED: INSULIN GLARGINE SOLOSTAR 100 UNITS/ML 3 ML PEN SC SCH (09:00)
--- NOTE | 2018-01-23 13:08 | Pharmacy Progress Note ---
Pharmacy Glycemic Short Note 2 Date of Service Jan 23, 2018. OUTPATIENT ANTIDIABETIC REGIMEN: * Humalog insulin pump * Basal rate: 00-02 - 6.5 units/hr - - 7 units/hr - - 6.5 units/hr * Correction factor: 15 * Carb ratio: 1 units per 2 gram of carbs * Goal range: 110-130 ASSESSMENT: * See progress note from 01/15/18 for more background info, in short: * Pt receiving SQ basal bolus insulin regimen for hyperglycemia secondary to baseline DM (outpatient regimen on hold), stress/infection (resolved), & steroids (previously on IV steroids x 6 days and now tapered to prednisone 40 mg PO daily starting 01/21/18). * Patient received 204 units of SQ insulin over the past 24 hours: * 120 units of basal insulin * 84 units of prandial/correctional insulin * BSGs: [phone] * Changes needed to insulin regimen: BASAL INSULIN DOSING: * AM Fasting BSG = 103 mg/dl. This is at goal range for patient based on inpatient targets and co-morbidities.. appears that patient may stabilize around 120 units of basal insulin/day therefore scheduled Lantus 60 units starting this evening. * With decrease in Lantus dosing patient will most likely require increased Novolog dose. BOLUS INSULIN DOSING * Blood sugars tend to climb throughout the day since Lantus dosing was decreased. Continued same parameters for breakfast to establish how effective this is ... at lunch the patient's blood sugar was 176 mg/dL so it was not effective. Tighten slightly. PLAN FOR INPATIENT GLYCEMIC CONTROL: * Basal insulin * LANTUS 55 units SQ x 1 gilmore this AM for BSG = 103mg, then 60 units SQ BID * Bolus Insulin * NOVOLOG per scale ACHS or Q6hrs while NPO * Correction Factor: 8 mg/dL/unit * Carb ratio of 1 unit per 1.5 grams CHO consumed DISCHARGE RECOMMENDATIONS: * A1c = 8.5% on 01/15/18 * This is in range for patient based on age and comorbidities. * Continue Humalog insulin pump on discharge. 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
[2018-01-23] MEDS ORDERED: DOCUSATE SODIUM 100 MG CAP PO ONE (13:15)
--- NOTE | 2018-01-23 15:39 | Progress Note ---
Medicine Progress Note Date & Time of Visit: Jan 23, 2018 at 15:24. Subjective Pt was seen and examined Sitting in bed with no distress Pt said that she feels much better She has been on RA and feeling good She said that her strength feels much better Denies any chest pain, palpitation and dizziness Objective Last 8 Hrs Date Time Temp Pulse Resp B/P (MAP) Pulse Ox O2 Delivery O2 Flow Rate FiO2 01/23/18 15:20 92 18 88 Room Air 01/23/18 11:56 80 18 88 Room Air 01/23/18 11:28 36.8 83 16 103/64 (77) 97 Room Air 01/23/18 07:36 36.3 80 20 114/47 (69) 89 Room Air Trach Collar Physical Exam: General- No acute distress Head- atraumatic Eyes- PERRL, EOMI ENT- oropharynx clear Neck- supple, no JVD Lungs- +mild wheezing Heart- regular rhythm; no murmur Abdomen- normal bowel sounds, soft Extremities- +Edema Neuro- alert, but slow response, abnormal jerking movement Skin- warm & dry Laboratory Results: Last 24 Hours Test 01/22/18 16:12 01/22/18 20:00 01/23/18 06:44 01/23/18 07:28 Bedside Glucose 231 mg/dl 280 mg/dl 108 mg/dl Sodium Level 134 mmol/L Potassium Level 3.3 mmol/L Chloride Level 96 mmol/L Carbon Dioxide Level 33 mmol/L Anion Gap 5.0 mmol/L Blood Urea Nitrogen 32 mg/dl Creatinine 1.46 mg/dl Est Creatinine Clear Calc Drug Dose 60.0 ml/min Estimated GFR () 44.6 Estimated GFR (Non- 38.4 BUN/Creatinine Ratio 21.6 Random Glucose 103 mg/dl Calcium Level 9.1 mg/dl Test 01/23/18 11:48 Bedside Glucose 176 mg/dl Assessment & Plan ACUTE ON CHRONIC HYPERCAPNIC RESPIRATORY FAILURE Multifactorial secondary to obstructive sleep apnea vs obesity hypoventilation syndrome vs Infuenza A and COPD exacerbation Has a tracheostomy secondary to the above CXR on admission showed no airspace consolidation or large pleural effusion is identified. POC blood gas showed pH: 7.27, CO2 58, O2 69 , Bicarb 27 Repeat CXR showed cardiomegaly with suggestion of volume overload and mild pulmonary edema Continue on bronchodilators and nebulized treatment Will taper solumedrol to 40mg TID Continue ceftriaxone + azithro Sputum cx pending Case discussed with Pulmonary team Will add Mucinex Blood cx growth coag negative staph Urine cx growth gram negative Continue Bipap PRN, was placed over the mouth/nose as patient trach did not seem to have a method of direct connection to bipap Continue trach suctioning ECHO DONE The right ventricle is at least mildly enlarged on limited visualization, with mild to moderate RV hypokinesis. Left ventricular systolic function is normal. Ejection Fraction = 55-60%. Grade I diastolic dysfunction, (abnormal relaxation pattern). The tricuspid regurgitation envelope was inadequate to allow calculation of the pulmonary artery systolic pressure. 3/2 breathing improved today Was off oxygen today CXR yesterday showed Interval improvement in pulmonary vascular congestion. Will changed solumedrol to predinisone tomorrow continue mucinex and neb treatment. Pulmonary on board Seen pt respiratory improved Was back to RA and no tachycardia Doubt about PE Will hold on CTA chest for now Discussed with daughter and patient about the risk for the CTA such as worsening kidney function and kidney failure 3/5 Clinically improved significantly Continue prednisone 40mg daily and taper continue respiratory treatment Continue oxygen at night Diuresis very well, Output -27L Changed lasix to torsemide Continue Torsemide 20mg BID Follow up with pulmonology as an outpatient Continue monitor HYPOTHYROIDISM: TSH 0.156 with Free T4 and Total T3 WNL Has been having some abnormal jerking movement Pt has been on levothyroxine 200mg daily and 300mg on Tuesday and On levothyroxine 200mg daily and 300mg on Tuesday and Will decrease levothyroxine to 200 mcg daily and 300mg on Tuesday Free T3 low Abnormal Jerking movement CT head showed no intracranial abnormality Possible related to thyroid etiology vs steroid induced Ammonia level 35.8 Need to r/o T3 thyrotoxicity Will check Free T3 If thyroid work up negative, consider neuro consult Will need to r/o steroid induced also will consider to change the solumedrol to prednisone 3/5 Possible related to solumedrol Solumedrol d/c No jerking movements Resolved DM TYPE II: On high doses of Lantus and insulin pump. Recent Hba1c 8.5 on 01/15/18 Insulin drip has been discontinue Pharmacy on board for glycemic pharmacy CAD: Denies any chest pain Troponin negative On aspirin and statin Stable CKD STAGE III: Cr on admission 1.4 On lasix 40mg IV TID Creatine improves to 1.4 today Continue torsemide 20mg BID Continue monitor BMP HYPOKALEMIA K 3.4 K replaced Will discharge on K supplement MORBID OBESITY: BMI: 76 has limited physical mobility high risk of further deconditioning; PT/OT when stabilized DYSLIPIDEMIA: continue on statin. GERD: continue with Protonix. MIGRAINES: continue with Topamax. ANXIETY/DEPRESSION: stable continue on her home medications. DVT px on Heparin subq CODE STATUS FULL CODE Consultants: Pulmonary Current Inpatient Medications: Current Inpatient Medications Medications (Trade) Dose Ordered Sig/Fatoumata Route Start Time Stop Time Status Last Admin Dose Admin Heparin Sodium (Porcine) (Heparin Sq 5000 Unit/0.5ml) 5,000 unit Q8H SQ 01/15/18 01:45 02/14/18 01:44 01/23/18 14:08 5,000 UNIT Acetaminophen (Tylenol Tab) 650 mg Q4H PRN PO 01/15/18 01:45 02/14/18 01:44 Ondansetron HCl (Zofran Inj) 4 mg Q6H PRN IV 01/15/18 01:45 02/14/18 01:44 Levalbuterol (Xopenex 1.25MG/ 0.5ML Neb) 1.25 mg Q4R INH 01/15/18 04:00 02/14/18 03:59 01/23/18 15:20 1.25 MG Ipratropium [place] (Atrovent 0.02% 0.5MG/2.5ML Neb) 0.5 mg Q4R INH 01/15/18 04:00 02/14/18 03:59 01/23/18 15:20 0.5 MG Aspirin (Ecotrin Tab) 81 mg DAILY PO 01/15/18 09:00 02/14/18 08:59 01/23/18 08:32 81 MG Atorvastatin Calcium (Lipitor Tab) 20 mg DAILY PO 01/15/18 09:00 02/14/18 08:59 01/23/18 08:33 20 MG Betamethasone/ Clotrimazole (Lotrisone Crm) 1 appln AMHS EXT 01/15/18 09:00 02/14/18 08:59 01/23/18 08:34 1 APPLN Ergocalciferol (Vitamin D Cap) 50,000 interunit MoWeFr@0900 PO 01/16/18 09:00 02/15/18 08:59 01/23/18 08:30 50,000 INTERUNIT Folic Acid (Folvite Tab) 1 mg DAILY PO 01/15/18 09:00 02/14/18 08:59 01/23/18 08:31 1 MG Isosorbide Mononitrate (Imdur Ext Rel Tab) 60 mg DAILY PO 01/15/18 09:00 02/14/18 08:59 01/23/18 08:31 60 MG Ketoconazole (Nizoral 2% Crm) 1 appln BID EXT 01/15/18 09:00 01/25/18 08:59 01/23/18 08:34 1 APPLN Levothyroxine Sodium (Synthroid Tab) 200 mcg SuTuWeFrSa@0630 PO 01/15/18 06:30 02/14/18 06:29 01/22/18 06:11 200 MCG Levothyroxine Sodium (Synthroid Tab) 300 mcg MoTh@0630 PO 01/16/18 06:30 02/15/18 06:29 01/23/18 06:02 300 MCG Lorazepam (Ativan Tab) 1 mg Q8 PRN PO 01/15/18 03:00 02/14/18 02:59 01/22/18 21:13 1 MG Metoprolol Tartrate (Lopressor Tab) 12.5 mg BID PO 01/15/18 09:00 02/14/18 08:59 01/23/18 08:32 12.5 MG Montelukast Sodium (Singulair Tab) 10 mg DAILY PO 01/15/18 09:00 02/14/18 08:59 01/23/18 08:30 10 MG Multivitamins (Multivitamin Tab) 1 tab DAILY PO 01/15/18 09:00 02/14/18 08:59 01/23/18 08:33 1 TAB Nitroglycerin (Nitrostat Tab) 0.4 mg UD PRN UT 01/15/18 03:00 02/14/18 02:59 Pantoprazole Sodium (Protonix Tab) 40 mg DAILY PO 01/15/18 09:00 02/14/18 08:59 01/23/18 08:32 40 MG Topiramate (Topamax Tab) 100 mg QAM PO 01/15/18 09:00 02/14/18 08:59 01/23/18 08:30 100 MG Topiramate (Topamax Tab) 200 mg HS PO 01/15/18 21:00 02/14/18 20:59 01/22/18 21:14 200 MG Tramadol HCl (Ultram Tab) 50 mg BID PRN PO 01/15/18 03:00 02/14/18 02:59 Miscellaneous Information (Order Awaiting Action) 1 ea QS N/A 01/15/18 08:00 02/14/18 07:59 Glucose (Glucose 40% Gel) 15-30 GRAMS 15 GRAMS... UD PRN PO 01/15/18 03:45 02/14/18 03:44 Glucose (Glucose Chew Tab) 4-8 Tablets 4 Tabl... UD PRN PO 01/15/18 03:45 02/14/18 03:44 Dextrose (Dextrose 50% 50ML Syringe) 25-50ML OF 50% DW IV FOR... UD PRN IV 01/15/18 03:45 02/14/18 03:44 Glucagon (Glucagon Inj) 1 mg UD PRN SQ 01/15/18 03:45 02/14/18 03:44 Miscellaneous Information (Consult Glycemic Management Pharmacy) 1 ea UD PRN N/A 01/15/18 04:15 02/14/18 04:14 Bupropion HCl (Wellbutrin Tab) 100 mg QAM PO 01/15/18 09:00 02/14/18 08:59 01/23/18 08:31 100 MG Bupropion HCl (Wellbutrin Tab) 200 mg DAILY@1600 PO 01/15/18 16:00 02/14/18 15:59 01/22/18 17:55 200 MG Guaifenesin (Mucinex Contr Rel Tab) 600 mg Q12 PO 01/17/18 21:00 02/16/18 20:59 01/23/18 08:31 600 MG Insulin Aspart (novoLOG ASPART) SLIDING SCALE ACHS SC 01/17/18 16:45 02/16/18 16:44 01/23/18 13:01 23 UNITS Albuterol/ Ipratropium (Duoneb) 3 ml Q2H PRN INH 01/19/18 04:00 02/18/18 03:59 Multi-Ingredient Ointment (Eucerin Unscented Cr) 1 appln BID EXT 01/20/18 21:00 02/19/18 20:59 01/23/18 08:30 1 APPLN Miconazole Nitrate (Desenex Powder) 1 appln BID EXT 01/20/18 21:00 02/19/18 20:59 01/23/18 08:30 1 APPLN Prednisone (PredniSONE TAB) 40 mg DAILY PO 01/22/18 09:00 02/21/18 08:59 01/23/18 08:30 40 MG Torsemide (Demadex Tab) 20 mg BID17 PO 01/22/18 21:00 02/21/18 20:59 01/23/18 08:31 20 MG Insulin Glargine (Lantus Solostar Pen) 60 units BID SC 01/23/18 09:00 02/22/18 08:59
[2018-01-23] MEDS ORDERED: LEVO200T6 PO ×2 (15:46→15:50)
[2018-01-23] MEDS ORDERED: GFNSR600 PO (15:46)
[2018-01-23] MEDS ORDERED: TORS20TA2 PO (15:46)
[2018-01-23] MEDS ORDERED: PRD20 PO (15:50)
--- NOTE | 2018-01-23 16:01 | Discharge Instructions ---
Discharge Instructions Date of Service Jan 23, 2018. Admission Reason for Admission: COPD Discharge Discharge Diagnosis / Problem: ACUTE ON CHRONIC HYPERCAPNIC RESPIRATORY FAILURE , HYPOTHYROIDISM Discharge Goals Goal(s): Decrease discomfort, Improve function, Improve disease control Activity Recommendations Activity Limitations: resume your previous activity (as tolerated) . Instructions / Follow-Up Instructions / Follow-Up Follow up with your primary care provider Dr. Leos on 01/27 @ 12:45 PM Follow up with your in house cra (please call to schedule for follow up appointment) Follow up with your endocrinology Continue prednisone taper course Ok to turn on the insulin pump at dinner time. Monitor Blood sugar and limited concentrated sweet intake Torsemide increase to 20mg twice a day Check BMP within 1 week to monitor electrolytes and kidney function Levothyroxine was changed to 200mcg daily, except on Tuesday to take 300mcg. Check TSH between 4 to 6 weeks. Continue physical therapy Fall precaution Use oxygen at night. Current Hospital Diet Patient's current hospital diet: Diabetes Type 2 Diet, AHA Diet (Heart Healthy) Discharge Diet Recommended Diet: AHA Diet (Heart Healthy), Diabetes Type 2 Diet Pending Studies Studies pending at discharge: no Laboratory Results Hemoglobin A1c Test 01/15/18 08:54 Range/Units Estimated Average Glucose 197 mg/dl Hemoglobin A1c 8.5 H 4.5-5.6 % Medical Emergencies . Who to Call and When: Medical Emergencies: If at any time you feel your situation is an emergency, please call 911 immediately. . Non-Emergent Contact Non-Emergency issues call your: Primary Care Provider Call Non-Emergent contact if: you have any medication questions . . "Provider Documentation" section prepared by Shila Mary. .
--- NOTE | 2018-01-28 22:10 | Discharge Summary ---
Discharge Summary Date of Service Jan 28, 2018. Discharge Summary Admission Date: Jan 15, 2018 at 01:52 Discharge Date: Jan 23, 2018 Discharge Disposition: Home with services Principal Diagnosis: ACUTE ON CHRONIC HYPERCAPNIC RESPIRATORY FAILURE Secondary Diagnoses/Problems: HYPOTHYROIDISM Abnormal Jerking movement CAD CKD STAGE III: HYPOKALEMIA DM TYPE 2 MORBID OBESITY DYSLIPIDEMIA ANXIETY/DEPRESSION: GERD MIGRAINE Procedures: HEAD WITHOUT CONTRAST (CT) CLINICAL HISTORY: 62 years-old Female with Slow to response. Acutely altered mental status TECHNIQUE: Multiple axial CT images of the head were obtained without contrast. A dose lowering technique was utilized adhering to the principles of ALARA. CT DOSE: 1523.61 mGy.cm COMPARISON: Head CT 12/03/2010. FINDINGS: Motion degraded exam. No acute intracranial hemorrhage, midline shift, intracranial mass, hydrocephalus, territorial ischemia or abnormal extra-axial collection. Mild atrophy. The calvarium is intact. The paranasal sinuses, mastoid air cells, and middle ear cavities are clear. IMPRESSION: No acute intracranial abnormality. The above report was generated using voice recognition software. It may contain grammatical, syntax or spelling errors. Electronically signed by: Jamir Henderson M.D. 01/19/2018 3:08 PM Dictated Date/Time: 01/19/2018 3:06 PM CHEST ONE VIEW PORTABLE CLINICAL HISTORY: Respiratory distress. COMPARISON STUDY: Chest radiograph January 16, 2018. FINDINGS: Tracheostomy tube is in place. Exam is mild compromised due to suboptimal penetration related to portable technique and body habitus. Cardiomegaly is unchanged. Mediastinal widening is unchanged. There is no pneumothorax or pleural effusion is no lobar consolidation. Interstitial thickening has slightly improved. IMPRESSION: 1. Stable cardiomegaly. 2. Interval improvement in pulmonary vascular congestion. 3. No lobar consolidation. Electronically signed by: Toni Ohara M.D. 01/19/2018 6:50 AM Dictated Date/Time: 01/19/2018 6:49 AM [~ rep ct add3]] SINGLE VIEW CHEST CLINICAL HISTORY: Dyspnea. FINDINGS: 2 AP, portable, upright chest radiographs compared to study dated 01/10/2018. The examination is degraded by portable technique, large body habitus, motion artifact, and patient rotation. A tracheostomy is unchanged in position. The heart is enlarged. Mild pulmonary vascular congestion is suggested. There is bibasilar atelectasis. No large pleural effusion or focal airspace consolidation is seen. No pneumothorax is seen. The skeletal structures are osteopenic. There are healed right-sided rib fracture. IMPRESSION: 1. Degraded examination as above. 2. Cardiomegaly. Mild pulmonary vascular congestion is suggested. 3. No airspace consolidation or large pleural effusion is identified. Electronically signed by: Jasper Hancock M.D. 01/15/2018 12:52 AM Dictated Date/Time: 01/15/2018 12:51 AM ECHO Interpretation Summary * Name: ANN JACKSON Study Date: 01/15/2018 10:04 AM BP: 121/65 mmHg * [facility] HR: 86 * : 1955 (M/d/yyyy) Gender: Female Height: 62 in * Age: 62 yrs Ethnicity: HI Weight: 416 lb * Ordering Physician: Nancie Blanton * Referring Physician: Self, Referred * Performed By: Enzo Ross RDCS * * Reason For Study: CHF * BSA: 2.6 m2 * The study was technically difficult. * The study was technically limited. * -- Conclusions -- * The right ventricle is at least mildly enlarged on limited visualization, with mild to moderate RV hypokinesis. * Left ventricular systolic function is normal. * Ejection Fraction = 55-60%. * Grade I diastolic dysfunction, (abnormal relaxation pattern). * The tricuspid regurgitation envelope was inadequate to allow calculation of the pulmonary artery systolic pressure. Procedure Details * A complete two-dimensional transthoracic echocardiogram was performed (2D, M- mode, Doppler and color flow Doppler). * The study was technically limited. * There are technical limitations to the patient's body habitus, poor positioning and breathing difficulty. * A contrast injection of Definity was performed to improve assessment of LV function. * Contrast was injected into an intravenous site in the left arm. * One vial of Definity ultrasound contrast was diluted in normal saline to a total volume of 10 ml. A total of '4' ml of solution was administered during imaging. * Lot # [id number] of Definity utilized for procedure. * Expiration date . * The attending nurse who injected the contrast agent was GOYO Jensen. Left Ventricle * The left ventricle is normal in size. * There is mild concentric left ventricular hypertrophy. * Left ventricular systolic function is normal. * Ejection Fraction = 55-60%. * The left ventricular wall motion is normal. Right Ventricle * The right ventricle is at least mildly enlarged on limited visualization, with mild to moderate RV hypokinesis. Atria * The left atrium is mildly dilated. * Right atrial size is normal. * There is no evidence of atrial septal defect, but resolution does not allow assessment for a patent foramen ovale. Mitral Valve * The mitral valve is not well visualized. * There is no mitral valve stenosis. * Significant mitral regurgitation is absent. Tricuspid Valve * The tricuspid valve is not well visualized. * There is no tricuspid stenosis. * Significant tricuspid regurgitation is absent. Aortic Valve * The aortic valve is not adequately visualized. There is no evidence of aortic stenosis or significant aortic regurgitation on Doppler assessment. Pulmonic Valve * The pulmonary valve is not well seen, but the Doppler examination is normal without significant regurgitation or stenosis. Great Vessels * The aortic root is normal size. * The proximal ascending aorta was not visualized well enought to allow measurement. Pericardium/Pleural * There is no pericardial effusion. Great Vessels * Normal inferior vena cava diameter and respiratory variation suggests normal central venous pressure. Left Ventricular Diastolic Function * Grade I diastolic dysfunction, (abnormal relaxation pattern). Consultations: Pulmonary Medication Reconciliation New Medications: Guaifenesin Ext Rel (Mucinex Ext Rel) 600 Mg Tabcr 600 MG PO Q12 PRN for Cough for 7 Days Prednisone (Prednisone) 20 Mg Tab 40 MG PO UD for 12 Days, TAB take 40mg for 3 days then 30mg for 3 days, then 20mg for 3 days, then 10mg for 3 days. Changed Medications: Levothyroxine Sodium (Levothyroxine Sodium) 200 Mcg Tab 200 MCG PO 6XWK for 30 Days (Changed from: DAILY) TAKE 200 MCG EVERY TUESDAY,TUESDAY,TUESDAY,, TUESDAY AND TUESDAY. And 1.5 tabs Tuesday Torsemide (Demadex) 20 Mg Tab 20 MG PO BID for 30 Days (Changed from: DAILY) Continued Medications: Albuterol Sulfate (Proair Respiclick) 108 Mcg/Act Aer 2 PUFFS INH Q4H PRN for SOB/Wheezing Aspirin (Aspir-81) 81 Mg Tab 1 TAB PO DAILY, TAB Atorvastatin (Lipitor) 20 Mg Tab 20 MG PO DAILY Bupropion (Wellbutrin Sr) 100 Mg Ertab 300 MG PO DAILY Clotrimazole W/ Betamethasone (Lotrisone) 1 Cre Cre 1 APPLN TOP AMPM apply to genital area Desloratadine (Clarinex) 5 Mg Tab 5 MG PO DAILY, TAB Ergocalciferol (Vitamin D 58333 Unit) 50,000 Unit Cap 1 TAB PO 3XWK, CAP take daily on tue/tue/tue Folic Acid (Folic Acid) 1 Mg Tab 1 MG PO DAILY Home O2 Therapy (Oxygen) Gas 5 LITERS MS UD VIA TRACH MIST MASK Insulin Human Lispro (Insulin Humalog Pump ) Pump 1 EA N/A UD max daily dose 400 units Ipratropium-Albuterol (Duoneb) 3 Ml Nebu 1 TREATMENT INH QID PRN for Coughing,WHZ or SOB, INHA Ipratropium-Albuterol (Combivent Respimat) 1 Aer Aer 1 PUFF INH QID Isosorbide Mononitrate Ext Rel (Imdur Ext Rel) 60 Mg Ertab 60 MG PO DAILY Ketoconazole (Ketoconazole) 45 Appln/15 Gm Cr 1 APPLN TOP BID apply to feet Lorazepam (Ativan) 1 Mg Tab 1 MG PO Q8 PRN for anxiety/agitation or sleep, TAB Metoprolol Tartrate (Lopressor) 25 Mg Tab 12.5 MG PO BID Montelukast Sod (Montelukast Sodium) 10 Mg Tab 10 MG PO DAILY Multivitamin (Multivitamin) Tab 1 TAB PO DAILY, TAB Nitroglycerin (Nitrostat) 0.4 Mg Tab 0.4 MG UT UD PRN for Chest Pain, [address] ONE TABLET UNDER THE TONGUE EVERY 5 MINUTES FOR UP TO 3 DOSES OVER 15 MINUTES IF NEEDED FOR CHEST PAIN. Pantoprazole (Pantoprazole Sodium) 40 Mg Tab 40 MG PO DAILY Potassium Chloride (Potassium Chloride Cr) 10 Meq Tab 10 MEQ PO BID Topiramate (Topiramate) 100 Mg Tab 100 MG PO QAM Topiramate (Topamax) 200 Mg Tab 200 MG PO HS, TAB Tramadol (Ultram) 50 Mg Tab 50 MG PO BID PRN for Pain Triamcinolone Acet (Triamcinolone Acetonide) 45 Appln/15 Gm Cr 1 APPLN TOP BID apply to affected area(s) Discontinued Medications: Levothyroxine Sodium (Levothyroxine Sodium) 200 Mcg Tab 300 MCG PO 2XWK TAKE 300 MCG EVERY TUESDAY AND TUESDAY. Admission Information HPI (per Admitting provider): Patient is a 62-year-old female who presents to the ER for complaints of worsening shortness of breath. The patient lives with her daughter who is also at the bedside, and reports that the patient has been complaining of cough and shortness of breath for the past 2 days. The patient has reportedly been on steroids for the last several months and was just weaned completely off of steroids and antibiotics approximately 2 days ago. Also of note the patient has been to the emergency room twice prior to today's visit for similar complaints. The patient states that she has had increasing cough, but minimal phlegm. She normally is able to clear her secretions via her tracheostomy without suctioning. Patient states she has been compliant with her home medications and inhalers, but did not see any improvement in her symptoms even with her nebs., Patient otherwise denies any complaints of chest pain, palpitations, headache, dizziness, lightheadedness, nasal congestion, sore throat, sinus congestion. No known sick contacts. Completed outpatient Levaquin 2 days ago. Patient also has had significant dyspnea on exertion, and per family members becomes dyspneic even with ambulating from her chair to the bathroom. Physical Exam (per Admitting): General Appearance: WD/WN, no apparent distress Head: normocephalic, atraumatic Eyes: PERRL, EOMI, sclerae normal (conjunctivae clear) ENT: hearing grossly normal Neck: supple, no carotid bruits, trachea midline, + pertinent finding ( trach present) Respiratory/Chest: chest non-tender, no accessory muscle use, + respiratory distress, + rhonchi, + wheezing Cardiovascular: regular rate, rhythm, no gallop, no JVD, no murmur Abdomen/GI: normal bowel sounds, non tender, soft, no organomegaly Back: no CVA tenderness Extremities/Musculoskelatal: no calf tenderness, normal capillary refill, non-tender, + pedal edema, + swelling Neurologic/Psych: no motor/sensory deficits, alert, normal mood/affect, oriented x 3 Skin: normal color, warm/dry, no rash Hospital Course ACUTE ON CHRONIC HYPERCAPNIC RESPIRATORY FAILURE Multifactorial secondary to obstructive sleep apnea vs obesity hypoventilation syndrome vs Infuenza A and COPD exacerbation Has a tracheostomy secondary to the above CXR on admission showed no airspace consolidation or large pleural effusion is identified. POC blood gas showed pH: 7.27, CO2 58, O2 69 , Bicarb 27 Repeat CXR showed cardiomegaly with suggestion of volume overload and mild pulmonary edema Continue on bronchodilators and nebulized treatment Will taper solumedrol to 40mg TID Continue ceftriaxone + azithro Sputum cx pending Case discussed with Pulmonary team Will add Mucinex Blood cx growth coag negative staph Urine cx growth gram negative Continue Bipap PRN, was placed over the mouth/nose as patient trach did not seem to have a method of direct connection to bipap Continue trach suctioning ECHO DONE The right ventricle is at least mildly enlarged on limited visualization, with mild to moderate RV hypokinesis. Left ventricular systolic function is normal. Ejection Fraction = 55-60%. Grade I diastolic dysfunction, (abnormal relaxation pattern). The tricuspid regurgitation envelope was inadequate to allow calculation of the pulmonary artery systolic pressure. 3/2 breathing improved today Was off oxygen today CXR yesterday showed Interval improvement in pulmonary vascular congestion. Will changed solumedrol to predinisone tomorrow continue mucinex and neb treatment. Pulmonary on board Seen pt respiratory improved Was back to RA and no tachycardia Doubt about PE Will hold on CTA chest for now Discussed with daughter and patient about the risk for the CTA such as worsening kidney function and kidney failure 3/5 Clinically improved significantly Continue prednisone 40mg daily and taper continue respiratory treatment Continue oxygen at night Diuresis very well, Output -27L Changed lasix to torsemide Continue Torsemide 20mg BID Follow up with pulmonology as an outpatient Continue monitor HYPOTHYROIDISM: TSH 0.156 with Free T4 and Total T3 WNL Has been having some abnormal jerking movement Pt has been on levothyroxine 200mg daily and 300mg on Tuesday and On levothyroxine 200mg daily and 300mg on Tuesday and Will decrease levothyroxine to 200 mcg daily and 300mg on Tuesday Free T3 low Abnormal Jerking movement CT head showed no intracranial abnormality Possible related to thyroid etiology vs steroid induced Ammonia level 35.8 Need to r/o T3 thyrotoxicity Will check Free T3 If thyroid work up negative, consider neuro consult Will need to r/o steroid induced also will consider to change the solumedrol to prednisone 3/5 Possible related to solumedrol Solumedrol d/c No jerking movements Resolved DM TYPE II: On high doses of Lantus and insulin pump. Recent Hba1c 8.5 on 01/15/18 Insulin drip has been discontinue Pharmacy on board for glycemic pharmacy CAD: Denies any chest pain Troponin negative On aspirin and statin Stable CKD STAGE III: Cr on admission 1.4 On lasix 40mg IV TID Creatine improves to 1.4 today Continue torsemide 20mg BID Continue monitor BMP HYPOKALEMIA K 3.4 K replaced Will discharge on K supplement MORBID OBESITY: BMI: 76 has limited physical mobility high risk of further deconditioning; PT/OT when stabilized DYSLIPIDEMIA: continue on statin. GERD: continue with Protonix. MIGRAINES: continue with Topamax. ANXIETY/DEPRESSION: stable continue on her home medications. DVT px on Heparin subq CODE STATUS FULL CODE Total time spent on discharge = 35 minutes This includes examination of the patient, discharge planning, medication reconciliation, and communication with other providers. Discharge Instructions DI: Medical v5 Discharge Instructions Date of Service Jan 23, 2018. Admission Reason for Admission: COPD Discharge Discharge Diagnosis / Problem: ACUTE ON CHRONIC HYPERCAPNIC RESPIRATORY FAILURE , HYPOTHYROIDISM Discharge Goals Goal(s): Decrease discomfort, Improve function, Improve disease control Activity Recommendations Activity Limitations: resume your previous activity (as tolerated) . Instructions / Follow-Up Instructions / Follow-Up Follow up with your primary care provider Dr. Leos on 01/27 @ 12:45 PM Follow up with your license and permit specialist (please call to schedule for follow up appointment) Follow up with your endocrinology Continue prednisone taper course Ok to turn on the insulin pump at dinner time. Monitor Blood sugar and limited concentrated sweet intake Torsemide increase to 20mg twice a day Check BMP within 1 week to monitor electrolytes and kidney function Levothyroxine was changed to 200mcg daily, except on Tuesday to take 300mcg. Check TSH between 4 to 6 weeks. Continue physical therapy Fall precaution Use oxygen at night. Current Hospital Diet Patient's current hospital diet: Diabetes Type 2 Diet, AHA Diet (Heart Healthy) Discharge Diet Recommended Diet: AHA Diet (Heart Healthy), Diabetes Type 2 Diet Pending Studies Studies pending at discharge: no Laboratory Results Hemoglobin A1c Test 01/15/18 08:54 Range/Units Estimated Average Glucose 197 mg/dl Hemoglobin A1c 8.5 H 4.5-5.6 % Medical Emergencies . Who to Call and When: Medical Emergencies: If at any time you feel your situation is an emergency, please call 911 immediately. . Non-Emergent Contact Non-Emergency issues call your: Primary Care Provider Call Non-Emergent contact if: you have any medication questions . . "Provider Documentation" section prepared by Shila Mary. . Additional Copies To Rowan Leos D.O.
== END 2018-01-23 16:51 | disposition home or self-care (01) | DRG 193 ==
LOC: C.EDB 23:59 → EDBD 23:59 → C.MSICU 01-15 01:52 → EDBEDREQ 01-15 01:59 → ENRESERV 01-15 02:00 → C.2T 01-15 18:46
PROVIDERS: ADMIT Internal Medicine; ATTEND Internal Medicine
DX: J10.1 Influenza due to other identified influenza virus with other respiratory manifestations (principal); J96.20 Acute and chronic respiratory failure, unspecified whether with hypoxia or hypercapnia; E66.2 Morbid (severe) obesity with alveolar hypoventilation; Z68.45 Body mass index [BMI] 70 or greater, adult; J44.1 Chronic obstructive pulmonary disease with (acute) exacerbation; J45.909 Unspecified asthma, uncomplicated; E03.9 Hypothyroidism, unspecified; E11.9 Type 2 diabetes mellitus without complications; N18.3 Chronic kidney disease, stage 3 (moderate); I25.10 Atherosclerotic heart disease of native coronary artery without angina pectoris; E78.5 Hyperlipidemia, unspecified; G43.909 Migraine, unspecified, not intractable, without status migrainosus; F41.9 Anxiety disorder, unspecified; F32.9 Major depressive disorder, single episode, unspecified; Z99.81 Dependence on supplemental oxygen; Z79.82 Long term (current) use of aspirin; Z93.0 Tracheostomy status; Z79.4 Long term (current) use of insulin; Z96.41 Presence of insulin pump (external) (internal)

== ENCOUNTER 2018-02-27 12:24 | Inpatient (IN) | payer OTHER ==
[~2018-02-27] VITALS: Ht 157.5 cm; Wt 177.3 kg
[~2018-02-27 12:24] MED LIST changes: -ACET-1256 PO; +ASPI-232 PO; -FLV1 PO; +GFNSR600 PO; -INSDGI SC; -INSPMPHMLG; -IPRASOL4 INH; -ISOS60TA25 PO; -LEVO1TAB33 PO; -LPR25 PO; -LPT20 PO; -NTRGSL/4 UT; -PANT40TA2 PO; +PRD20 PO; -TOPI200T14 PO; -TPM100 PO
[2018-02-27] MEDS ORDERED: TOPI200T14 PO (14:33)
[2018-02-27] MEDS ORDERED: BUMETANIDE SOLN 1 MG/4 ML VIAL IV STA (15:29)
[2018-02-27] MEDS ORDERED: ALBUT/IPRATROP 3MG/0.5MG NEB 3 ML VIAL INH STA (15:29)
[2018-02-27] MEDS ORDERED: CEFEPIME IV 2,000 MG in DEXTROSE 5% 100ML 100 ML IV STA (15:32)
[2018-02-27] MEDS ORDERED: BUMETANIDE IV 1 MG in SYRINGE 0 ML IV ONE (15:45)
[2018-02-27 15:53] VITALS: PULSE 72
[2018-02-27 15:55] LABS: BASO % 0.3 %; BASO ABS # 0.04 K/uL (0-0.2); EOS % 1.9 %; EOS ABS # 0.22 K/uL (0-0.5); HEMATOCRIT 38.9 % (37-47); HEMOGLOBIN 11.9 g/dL (12.0-16.0); IG# 0.16 K/uL (0.00-0.02); LYMPH % 16.2 %; LYMPH ABS # 1.91 K/uL (1.2-3.4); MEAN CELL VOLUME 92.8 fL (80-100); MEAN CORPUSCULAR HEMOGLOBIN 28.4 pg (25-34); MEAN CORPUSCULAR HGB CONC 30.6 g/dl (32-36); MEAN PLATELET VOLUME 9.5 fL (7.4-10.4); MONO % 7.2 %; MONO ABS # 0.85 K/uL (0.11-0.59); NEUT ABS # 8.63 K/uL (1.4-6.5); PLATELET COUNT 316 K/uL (130-400); RED CELL DISTRIBUTION WIDTH CV 16.2 % (11.5-14.5); RED CELL DISTRIBUTION WIDTH SD 54.9 fL (36.4-46.3); WHITE BLOOD COUNT 11.81 K/uL (4.8-10.8)
[2018-02-27] MEDS ORDERED: IPRASOL4 INH (15:58)
--- NOTE | 2018-02-27 16:00 | DIAGNOSTIC IMAGING REPORT ---
CHEST ONE VIEW PORTABLE CLINICAL HISTORY: 62 years-old Female presenting with EVALUATE RESPIRATORY DISTRESS.DYSPNEA. TECHNIQUE: Portable upright AP view of the chest was obtained. COMPARISON: 01/19/2018. FINDINGS: Tracheostomy tube remains in place. Atherosclerosis of aortic arch. Cardiac silhouette enlarged. Pulmonary vascular prominence. Minimal hazy bibasilar opacity possibly due to overlapping soft tissue. Trace pleural effusions may be present. No large pneumothorax. IMPRESSION: 1. Cardiomegaly with volume overload. Electronically signed by: Solomon Browning M.D. 02/27/2018 3:59 PM Dictated Date/Time: 02/27/2018 3:58 PM
[2018-02-27] MEDS ORDERED: LPR25 PO (16:04)
[2018-02-27] MEDS ORDERED: LPT20 PO (16:04)
[2018-02-27] MEDS ORDERED: ISOS60TA25 PO (16:04)
[2018-02-27] MEDS ORDERED: TPM100 PO (16:04)
[2018-02-27] MEDS ORDERED: PANT40TA2 PO (16:04)
[2018-02-27] MEDS ORDERED: FLV1 PO (16:04)
[2018-02-27 16:06] LABS: PTT PATIENT 24.7 SECONDS (21.0-31.0)
[2018-02-27 16:17] LABS: ALBUMIN 2.9 gm/dl (3.4-5.0); ALT/SGPT 23 U/L (12-78); AST/SGOT 19 U/L (15-37); BLOOD UREA NITROGEN 14 mg/dl (7-18); CALCIUM 8.8 mg/dl (8.5-10.1); CARBON DIOXIDE 27 mmol/L (21-32); CREATININE 1.32 mg/dl (0.60-1.20); GLUCOSE 160 mg/dl (70-99); SODIUM 139 mmol/L (136-145)
[2018-02-27] MEDS ORDERED: INSPMPHMLG (16:19)
[2018-02-27 16:26] LABS: ALKALINE PHOSPHATASE 89 U/L (45-117); TOTAL PROTEIN 7.4 gm/dl (6.4-8.2)
[2018-02-27] MEDS ORDERED: AZIT-57 PO (17:18)
[2018-02-27] MEDS ORDERED: BENZ100C84 PO (17:18)
[2018-02-27] MEDS ORDERED: BMX1 PO (17:18)
[2018-02-27] MEDS ORDERED: IPRA1AER2 INH (17:43)
[2018-02-27] MEDS ORDERED: LEVO200T PO ×3 (17:43)
[2018-02-27] MEDS ORDERED: [UNRECOGNIZED DRUG - CODE] (17:43)
[2018-02-27] MEDS ORDERED: INSDGI SQ (17:43)
[2018-02-27] MEDS ORDERED: BUPR100T8 PO (17:43)
[2018-02-27] MEDS ORDERED: ERGO500037 PO (17:43)
--- NOTE | 2018-02-27 17:43 | DIAGNOSTIC IMAGING REPORT ---
ULTRASOUND BILATERAL LOWER EXTREMITY VENOUS CLINICAL HISTORY: Lower extremity edema and pain. COMPARISON STUDY: Bilateral lower extremity venous ultrasound dated 01/04/2017. TECHNIQUE: Real-time, grayscale, and color Doppler sonography of the deep veins of the right and left lower extremity was performed from the inguinal crease to the calf. Compression and augmentation were utilized. The examination is significantly degraded by obesity. FINDINGS: There is no sonographic evidence of deep venous thrombosis identified in the right or left lower extremity. The common femoral, superficial femoral, and popliteal veins are patent and normally compressible bilaterally. The greater saphenous vein and the profunda femoris vein at the junction with the common femoral vein are clear in both legs. The visualized calf veins are patent bilaterally. IMPRESSION: There is no sonographic evidence of deep venous thrombosis identified in the right or left lower extremity noting a degraded examination. Electronically signed by: Jasper Hancock M.D. 02/27/2018 5:42 PM Dictated Date/Time: 02/27/2018 5:41 PM
[2018-02-27] MEDS ORDERED: DFL100 PO (17:52)
[2018-02-27] MEDS ORDERED: TYLOTC500 PO (17:52)
[2018-02-27] MEDS ORDERED: PHARMACY GLYCEMIC MGMT CONSULT SCH (18:45)
[2018-02-27] MEDS ORDERED: INSULIN HUMAN LISPRO (humaLOG) 100 UNITS/ML VIAL SC PRN (20:00)
[2018-02-27] MEDS ORDERED: DEXTROSE 50% 50 ML SYR IV PRN (20:00)
[2018-02-27] MEDS ORDERED: GLUCAGON FOR INJ 1 MG VIAL SQ PRN (20:00)
[2018-02-27] MEDS ORDERED: GLUCOSE 40% GEL 15 GM TUBE PO PRN (20:00)
[2018-02-27] MEDS ORDERED: GLUCOSE 10 TABS/TUBE PO PRN (20:00)
--- NOTE | 2018-02-27 20:06 | EMERGENCY ROOM VISIT NOTE ---
History Report prepared by Hipolito: Pattie Cantrell Under the Supervision of: Dr. Jasper Verma M.D. First contact with patient: 15:21 Chief Complaint: OTHER COMPLAINT Stated Complaint: FLUID BUILD UP History of Present Illness The patient is a 62 year old female who presents to the Emergency Room with complaints of worsening leg swelling starting several days ago. The patient saw her doctor 3 days ago and received a dose of IV Lasix. She was discharged home on Bumex. She states the fluid in her legs has gotten worse despite the medications. She reports increased SOB over the past couple of days. She has had fluid in her lungs before, but she has never had fluid buildup like this in her legs. She notes that she has been watching her salt intake recently. She reports chills and a dry cough. Her left leg is more red than normal and there is water leaking from her legs. She has a history of blood clots in the distant past. She is not on blood thinners. She wears oxygen only at night. She has a tracheostomy in place. She does a breathing treatment every 4 hours at home. Source of History: patient Onset: several days ago Position: leg (bilateral) Quality: other (swelling) Timing: worsening Associated Symptoms: + chills, + cough, + SOB Note: Pt reports leg redness. Review of Systems See HPI for pertinent positives & negatives. A total of 10 systems reviewed and were otherwise negative. Past Medical & Surgical Medical Problems: (1) Anxiety (2) Bilateral lower extremity edema (3) Bronchiectasis (4) Chronic respiratory failure (5) CKD (chronic kidney disease), stage III (6) COPD (chronic obstructive pulmonary disease) (7) DM type 2 (diabetes mellitus, type 2) (8) Dyslipidemia (9) HTN (hypertension) (10) Hypothyroid (11) Hypoventilation associated with obesity (12) Migraine (13) MRSA (methicillin resistant staph aureus) culture positive (14) Right ventricular dysfunction (15) Tracheostomy in place Surgical Problems: (1) History of appendectomy (2) History of cholecystectomy (3) History of hysterectomy (4) History of tonsillectomy and adenoidectomy (5) S/P IVC filter Family History FH: COPD (chronic obstructive pulmonary disease) MOTHER Social History Smoking Status: Never Smoker Alcohol Use: none Drug Use: none Marital Status: Housing Status: lives with family Occupation Status: disabled Current/Historical Medications Scheduled Acetaminophen (Tylenol), 500 MG PO PRN Aspirin (Aspir-81), 1 TAB PO DAILY Atorvastatin (Lipitor), 20 MG PO QPM Azithromycin (Azithromycin), 250 MG PO MWF Bumetanide (Bumetanide), 1 MG PO BID Bupropion (Wellbutrin Sr), 100 MG PO QAM Bupropion (Wellbutrin Sr), 200 MG PO HS Ergocalciferol (Vitamin D 57785 Unit), 50,000 UNIT PO MWF Fluconazole (Fluconazole), 100 MG PO PRN UD Folic Acid (Folic Acid), 1 MG PO DAILY Hydrogen Peroxide (Hydrogen Peroxide), UD Insulin Glargine (Lantus), 75 UNITS SQ BID UD Insulin Human Lispro (Insulin Humalog Pump ), 1 EA N/A UD Ipratropium-Albuterol (Duoneb), 1 TREATMENT INH QID Ipratropium-Albuterol (Combivent Respimat), 1 PUFFS INH QID Isosorbide Mononitrate Ext Rel (Imdur Ext Rel), 60 MG PO DAILY Levothyroxine Sodium (Synthroid), 200 MCG PO 5XWK Levothyroxine Sodium (Synthroid), 300 MCG PO 2XWK Metoprolol Tartrate (Lopressor), 12.5 MG PO BID Montelukast Sod (Montelukast Sodium), 10 MG PO HS Multivitamin (Multivitamin), 1 TAB PO DAILY Pantoprazole (Pantoprazole Sodium), 40 MG PO DAILY Potassium Chloride (Potassium Chloride Cr), 10 MEQ PO BID Topiramate (Topiramate), 100 MG PO QAM Topiramate (Topamax), 200 MG PO HS Triamcinolone Acet (Triamcinolone Acetonide), 1 APPLN TOP BID Scheduled PRN Albuterol Sulfate (Proair Respiclick), 2 PUFFS INH Q4H PRN for SOB/Wheezing Benzonatate (Tessalon Perles), 100 MG PO TID PRN for Cough Ketoconazole (Ketoconazole), 1 APPLN TOP BID PRN for BREAKOUTS Lorazepam (Ativan), 1 MG PO Q8 PRN for anxiety/agitation or sleep Nitroglycerin (Nitrostat), 0.4 MG UT UD PRN for Chest Pain Tramadol (Ultram), 50 MG PO BID PRN for Pain Allergies Coded Allergies: Amitriptyline (Verified Allergy, Unknown, `, 01/15/18) Gabapentin (Verified Allergy, Unknown, `, 01/15/18) Metformin (Verified Allergy, Unknown, `, 01/15/18) Penicillins (Verified Allergy, Unknown, `, 01/15/18) Pseudoephedrine (Verified Allergy, Unknown, `, 01/15/18) Tetracycline (Verified Allergy, Unknown, `, 01/15/18) Physical Exam Vital Signs Date Time Temp Pulse Resp B/P (MAP) Pulse Ox O2 Delivery O2 Flow Rate FiO2 02/27/18 16:10 95 Room Air 02/27/18 15:53 72 28 02/27/18 15:01 36.8 74 22 157/73 95 Room Air 02/27/18 12:41 36.6 79 18 150/74 98 Room Air Physical Exam GENERAL: Patient is in no acute distress. HEENT: No acute trauma, normocephalic atraumatic, mucous membranes moist, no nasal congestion, no scleral icterus. NECK: No stridor, no adenopathy, no meningismus, trachea is midline. Tracheostomy present. LUNGS: Scattered wheezes heard when listening anterior, breath sounds equal, increased respiratory rate. HEART: Very distant heart sounds, cannot assess for murmurs, rhythm seems regular. ABDOMEN: Soft, nontender, bowel sounds positive, no hernias, no peritonitis. EXTREMITIES: Significant bilateral pedal edema. Erythema to the left leg from just below the knee to the ankle. There is warmth present, no current drainage. NEUROLOGIC: Oriented x 3, no acute motor or sensory deficits, no focal weakness. SKIN: No rash, no jaundice, no diaphoresis. Medical Decision & Procedures ER Provider Diagnostic Interpretation: X-ray results as stated below per interpretation by me and the radiologist. Radiology results as stated below per my review and radiologist interpretation: CHEST ONE VIEW PORTABLE CLINICAL HISTORY: 62 years-old Female presenting with EVALUATE RESPIRATORY DISTRESS.DYSPNEA. TECHNIQUE: Portable upright AP view of the chest was obtained. COMPARISON: 01/19/2018. FINDINGS: Tracheostomy tube remains in place. Atherosclerosis of aortic arch. Cardiac silhouette enlarged. Pulmonary vascular prominence. Minimal hazy bibasilar opacity possibly due to overlapping soft tissue. Trace pleural effusions may be present. No large pneumothorax. IMPRESSION: 1. Cardiomegaly with volume overload. Electronically signed by: Solomon Browning M.D. 02/27/2018 3:59 PM Dictated Date/Time: 02/27/2018 3:58 PM ULTRASOUND BILATERAL LOWER EXTREMITY VENOUS CLINICAL HISTORY: Lower extremity edema and pain. COMPARISON STUDY: Bilateral lower extremity venous ultrasound dated 01/04/2017. TECHNIQUE: Real-time, grayscale, and color Doppler sonography of the deep veins of the right and left lower extremity was performed from the inguinal crease to the calf. Compression and augmentation were utilized. The examination is significantly degraded by obesity. FINDINGS: There is no sonographic evidence of deep venous thrombosis identified in the right or left lower extremity. The common femoral, superficial femoral, and popliteal veins are patent and normally compressible bilaterally. The greater saphenous vein and the profunda femoris vein at the junction with the common femoral vein are clear in both legs. The visualized calf veins are patent bilaterally. IMPRESSION: There is no sonographic evidence of deep venous thrombosis identified in the right or left lower extremity noting a degraded examination. Electronically signed by: Jasper Hancock M.D. 02/27/2018 5:42 PM Dictated Date/Time: 02/27/2018 5:41 PM Laboratory Results 02/27/18 15:05 Red Blood Count 4.19, Mean Corpuscular Volume 92.8, Mean Corpuscular Hemoglobin 28.4, Mean Corpuscular Hemoglobin Concent 30.6, Mean Platelet Volume 9.5, Neutrophils (%) (Auto) 73.0, Lymphocytes (%) (Auto) 16.2, Monocytes (%) (Auto) 7.2, Eosinophils (%) (Auto) 1.9, Basophils (%) (Auto) 0.3, Neutrophils # (Auto) 8.63, Lymphocytes # (Auto) 1.91, Monocytes # (Auto) 0.85, Eosinophils # (Auto) 0.22, Basophils # (Auto) 0.04 02/27/18 15:05 Test 02/27/18 15:05 02/27/18 16:00 White Blood Count 11.81 K/uL (4.8-10.8) Red Blood Count 4.19 M/uL (4.2-5.4) Hemoglobin 11.9 g/dL (12.0-16.0) Hematocrit 38.9 % (37-47) Mean Corpuscular Volume 92.8 fL (80-100) Mean Corpuscular Hemoglobin 28.4 pg (25-34) Mean Corpuscular Hemoglobin Concent 30.6 g/dl (32-36) Platelet Count 316 K/uL (130-400) Mean Platelet Volume 9.5 fL (7.4-10.4) Neutrophils (%) (Auto) 73.0 % Lymphocytes (%) (Auto) 16.2 % Monocytes (%) (Auto) 7.2 % Eosinophils (%) (Auto) 1.9 % Basophils (%) (Auto) 0.3 % Neutrophils # (Auto) 8.63 K/uL (1.4-6.5) Lymphocytes # (Auto) 1.91 K/uL (1.2-3.4) Monocytes # (Auto) 0.85 K/uL (0.11-0.59) Eosinophils # (Auto) 0.22 K/uL (0-0.5) Basophils # (Auto) 0.04 K/uL (0-0.2) RDW Standard Deviation 54.9 fL (36.4-46.3) RDW Coefficient of Variation 16.2 % (11.5-14.5) Immature Granulocyte % (Auto) 1.4 % Immature Granulocyte # (Auto) 0.16 K/uL (0.00-0.02) Prothrombin Time 10.3 SECONDS (9.0-12.0) Prothromb Time International Ratio 1.0 (0.9-1.1) Activated Partial Thromboplast Time 24.7 SECONDS (21.0-31.0) Partial Thromboplastin Ratio 1.0 Anion Gap 6.0 mmol/L (3-11) Estimated GFR () 50.3 Estimated GFR (Non- 43.4 BUN/Creatinine Ratio 10.3 (10-20) Calcium Level 8.8 mg/dl (8.5-10.1) Magnesium Level 2.3 mg/dl (1.8-2.4) Total Bilirubin 0.4 mg/dl (0.2-1) Aspartate Amino Transf (AST/SGOT) 19 U/L (15-37) Alanine Aminotransferase (ALT/SGPT) 23 U/L (12-78) Alkaline Phosphatase 89 U/L (45-117) Troponin I < 0.015 ng/ml (0-0.045) Pro-B-Type Natriuretic Peptide 98 pg/ml (0-900) Total Protein 7.4 gm/dl (6.4-8.2) Albumin 2.9 gm/dl (3.4-5.0) Globulin 4.5 gm/dl (2.5-4.0) Albumin/Globulin Ratio 0.6 (0.9-2) Thyroid Stimulating Hormone (TSH) 1.460 uIu/ml (0.300-4.500) Free Thyroxine 1.34 ng/dl (0.80-1.60) Thyroxine (T4) 10.7 mcg/dl (4.5-10.9) Urine Color YELLOW Urine Appearance CLEAR (CLEAR) Urine pH 7.0 (4.5-7.5) Urine Specific [place] 1.014 (1.000-1.030) Urine Protein NEG (NEG) Urine Glucose (UA) NEG (NEG) Urine Ketones NEG (NEG) Urine Occult Blood NEG (NEG) Urine Nitrite POS (NEG) Urine Bilirubin NEG (NEG) Urine Urobilinogen NEG (NEG) Urine Leukocyte Esterase SMALL (NEG) Urine WBC (Auto) >30 /hpf (0-5) Urine RBC (Auto) 0-4 /hpf (0-4) Urine Hyaline Casts (Auto) 1-5 /lpf (0-5) Urine Epithelial Cells (Auto) 5-10 /lpf (0-5) Urine Bacteria (Auto) 2+ (NEG) Laboratory results reviewed by me. Medications Administered Medications (Trade) Dose Ordered Sig/Fatoumata Route Start Time Stop Time Status Last Admin Dose Admin Albuterol/ Ipratropium (Duoneb) 3 ml NOW STAT INH 02/27/18 15:29 02/27/18 15:33 DC 02/27/18 15:52 3 ML Cefepime HCl 2000 mg/Dextrose 112.5 ml @ 200 mls/hr ONE STAT IV 02/27/18 15:32 02/27/18 16:05 DC 02/27/18 16:36 200 MLS/HR Bumetanide 1 mg/ Syringe 4 ml @ 4 mls/min TODAY@1545 ONCE IV 02/27/18 15:45 02/27/18 15:46 DC 02/27/18 16:36 4 MLS/MIN ECG Per My Interpretation Indication: SOB/dyspnea Rate (beats per minute): 72 Rhythm: sinus rhythm Findings: RBBB (incomplete), no ectopy, other (no ST elevation, no PVC) ED Course 1524: The patient was evaluated in room A12B. A complete history and physical exam was performed. 1529: Duoneb 3 ml INH. 1532: Cefepime HCl 2000 mg/Dextrose 112.5 ml @ 200 mls/hr IV. 1545: Bumetanide 1 mg/Syringe 4 ml @ 4 mls/min IV. 1651: I discussed the patient's case with JONE Ramirez hospitalist. The patient will be evaluated for further management. 175: Upon reexamination the patient is stable. I discussed results and treatment plan with the patient. She verbalizes agreement and understanding. The patient will be evaluated for further management. Medical Decision Differential diagnoses considered include CHF, fluid overload, DVT, renal failure, electrolyte imbalance, pneumonia, exacerbation of COPD, anemia, SD, cellulitis. There is a mild leukocytosis, this could be consistent with infection. No anemia. No significant electrolyte abnormality, kidney failure or hepatitis. The patient appears to be in a euthyroid state. EKG shows a sinus rhythm, no acute ischemia. Cardiac enzyme testing 1 is not consistent with acute cardiac injury. Chest x-ray does not show pneumonia, CHF was felt present. Bilateral lower extremity ultrasound does not show evidence for DVT. Urinalysis is suggestive of infection, urine culture is pending. Blood cultures are pending. The patient received IV cefepime as antibiotic coverage. This was given for the UTI and presumed cellulitis. She received IV Bumex and was given a DuoNeb. A Payne catheter was placed to monitor urine output. The patient presents with fluid overload. She has developed a left leg cellulitis and also appears to have a UTI. She is dyspneic and I do think a hospital stay is warranted. She has failed outpatient treatment. I spoke to the patient and case management. The on-call hospitalist was consulted. Medication Reconcilliation Current Medication List: was personally reviewed by me Blood Pressure Screening Patient's blood pressure: Elevated blood pressure Referred to hospitalist. Consults Time Called: [phone] Consulting Physician: JONE Ramirezist Returned Call: [phone] Discussed the patient's case. The patient will be evaluated for further management. Impression Primary Impression: SOB (shortness of breath) Additional Impressions: Fluid overload Left leg cellulitis Scribe Attestation The scribe's documentation has been prepared under my direction and personally reviewed by me in its entirety. I confirm that the note above accurately reflects all work, treatment, procedures, and medical decision making performed by me. Departure Information Dispostion Being Evaluated By Hospitalist Referrals Rowan Leos D.O. (PCP) Patient Instructions My [facility] Problem Qualifiers
[2018-02-27 20:11] VITALS: BP 139/68; PULSE 81; TEMP 36.8; O2SAT 97; BMI 76.2
[2018-02-27] MEDS ORDERED: NTRGSL/4 UT (21:50)
--- NOTE | 2018-02-27 22:04 | History and Physical ---
History & Physical Date & Time of Service: Feb 27, 2018 at 22:04 Chief Complaint: Bilateral Lower Extremity Edema, Right Ventricular Primary Care Physician: Rowan Leos D.O. History of Present Illness Source: patient, family, clinic records 62 year old female who followed with cardiology with last visit at [facility] on 02/24/18 which details that this is a patient with: right sided heart failure secondary to long-standing history of obesity hypoventilation syndrome, COPD exacerbation, tracheostomy. She was recently hospitalized with aggressive diuresis, greater than 50 lbs lost with IV furosemide. Up until the vist at [facility] on 02/24/18, patient was on torsemide 30 mg daily Because of progressive weight gain, with associated worsening of her LE edema, dyspnea, patient was givem IV Lasix and started on Bumex 1 mg - 1 tab BID as outpatient Patient arrives to the ED because symptoms of weight gain with lower extremity swelling and dyspnea has not improved despite outpatient changes in diuretic therapies Patient was on room air and no CXR signs of pulmonary edema. She was given IV Bumex in the ER and seen by hospitalist for admission. Cefepime was also given in the ED Past Medical/Surgical History Medical Problems: (1) Anxiety (2) Bilateral lower extremity edema (3) Bronchiectasis (4) Chronic respiratory failure (5) CKD (chronic kidney disease), stage III (6) COPD (chronic obstructive pulmonary disease) (7) COPD exacerbation (8) COPD with acute lower respiratory infection (9) DM type 2 (diabetes mellitus, type 2) (10) Dyslipidemia (11) HTN (hypertension) (12) Hypothyroid (13) Hypoventilation associated with obesity (14) Hypoxia (15) Migraine (16) MRSA (methicillin resistant staph aureus) culture positive (17) Obesity (18) Respiratory distress (19) Rib pain on right side (20) Right ventricular dysfunction (21) Shortness of breath (22) Tracheostomy in place (23) Tracheostomy present (24) Tracheostomy present Surgical Problems: (1) History of appendectomy (2) History of cholecystectomy (3) History of hysterectomy (4) History of tonsillectomy and adenoidectomy (5) S/P IVC filter Family History FH: COPD (chronic obstructive pulmonary disease) MOTHER Social History Smoking Status: Never Smoker Drug Use: none Marital Status: Housing status: lives with family Occupational Status: disabled Immunizations History of Influenza Vaccine: Yes Influenza Vaccine Date: Sep 27, 2016 History of Tetanus Vaccine?: Yes Tetanus Immunization Date: Jul 29, 2011 History of Pneumococcal: Yes Pneumococcal Date: Sep 27, 2016 Allergies Coded Allergies: Amitriptyline (Verified Allergy, Unknown, `, 01/15/18) Gabapentin (Verified Allergy, Unknown, `, 01/15/18) Metformin (Verified Allergy, Unknown, `, 01/15/18) Penicillins (Verified Allergy, Unknown, `, 01/15/18) Pseudoephedrine (Verified Allergy, Unknown, `, 01/15/18) Tetracycline (Verified Allergy, Unknown, `, 01/15/18) Home Medications Scheduled Acetaminophen (Tylenol), 500 MG PO PRN Aspirin (Aspir-81), 1 TAB PO DAILY Atorvastatin (Lipitor), 20 MG PO QPM Azithromycin (Azithromycin), 250 MG PO MWF Bumetanide (Bumetanide), 1 MG PO BID Bupropion (Wellbutrin Sr), 100 MG PO QAM Bupropion (Wellbutrin Sr), 200 MG PO HS Ergocalciferol (Vitamin D 01935 Unit), 50,000 UNIT PO MWF Fluconazole (Fluconazole), 100 MG PO PRN UD Folic Acid (Folic Acid), 1 MG PO DAILY Hydrogen Peroxide (Hydrogen Peroxide), UD Insulin Glargine (Lantus), 75 UNITS SQ BID UD Insulin Human Lispro (Insulin Humalog Pump ), 1 EA N/A UD Ipratropium-Albuterol (Duoneb), 1 TREATMENT INH QID Ipratropium-Albuterol (Combivent Respimat), 1 PUFFS INH QID Isosorbide Mononitrate Ext Rel (Imdur Ext Rel), 60 MG PO DAILY Levothyroxine Sodium (Synthroid), 200 MCG PO 5XWK Levothyroxine Sodium (Synthroid), 300 MCG PO 2XWK Metoprolol Tartrate (Lopressor), 12.5 MG PO BID Montelukast Sod (Montelukast Sodium), 10 MG PO HS Multivitamin (Multivitamin), 1 TAB PO DAILY Pantoprazole (Pantoprazole Sodium), 40 MG PO DAILY Potassium Chloride (Potassium Chloride Cr), 10 MEQ PO BID Topiramate (Topiramate), 100 MG PO QAM Topiramate (Topamax), 200 MG PO HS Triamcinolone Acet (Triamcinolone Acetonide), 1 APPLN TOP BID Scheduled PRN Albuterol Sulfate (Proair Respiclick), 2 PUFFS INH Q4H PRN for SOB/Wheezing Benzonatate (Tessalon Perles), 100 MG PO TID PRN for Cough Ketoconazole (Ketoconazole), 1 APPLN TOP BID PRN for BREAKOUTS Lorazepam (Ativan), 1 MG PO Q8 PRN for anxiety/agitation or sleep Nitroglycerin (Nitrostat), 0.4 MG UT UD PRN for Chest Pain Tramadol (Ultram), 50 MG PO BID PRN for Pain Review of Systems Constitutional: + problem reported (weight gain especially of lower extremities ), No fever, No chills Eyes: No worsening of vision, No eye pain ENT: + problem reported (has trach), No hearing loss, No unusual epistaxis, No nasal symptoms, No sore throat Respiratory: + shortness of breath, No cough, No wheezing Cardiovascular: + edema, No chest pain, No palpitations Abdomen: No pain, No nausea, No vomiting, No diarrhea, No constipation Musculoskeletal: + swelling, No joint pain, No muscle pain, No calf pain Genitourinary - Female: + urinary retention, No dysuria Neurologic: No numbness/tingling Hematologic / Lymphatic: No abnormal bleeding/bruising Integumentary: No rash, No itch Physical Exam Vital Signs Date Time Temp Pulse Resp B/P (MAP) Pulse Ox O2 Delivery O2 Flow Rate FiO2 02/27/18 20:11 36.8 81 20 139/68 97 Trach Collar 02/27/18 18:59 80 26 118/62 98 02/27/18 18:33 80 26 118/62 98 Humidified Oxygen 28 02/27/18 16:10 95 Room Air 02/27/18 15:53 72 28 02/27/18 15:01 36.8 74 22 157/73 95 Room Air 02/27/18 12:41 36.6 79 18 150/74 98 Room Air General Appearance: no apparent distress, + obese Head: normocephalic, atraumatic Eyes: normal inspection, EOMI, sclerae normal ENT: normal ENT inspection, hearing grossly normal, pharynx normal Neck: supple, no adenopathy (has trach), no JVD, trachea midline, + pertinent finding Respiratory/Chest: chest non-tender, lungs clear, normal breath sounds, no respiratory distress, no accessory muscle use Cardiovascular: regular rate, rhythm, no JVD, normal peripheral pulses, + pertinent finding (bilateral lower edema) Abdomen/GI: normal bowel sounds, non tender, soft, no pulsatile mass Back: normal inspection, no CVA tenderness, no muscle spasm, normal range of motion Extremities/Musculoskelatal: normal inspection, no calf tenderness, non-tender , + pedal edema, + swelling Neurologic/Psych: no motor/sensory deficits, alert, normal mood/affect, oriented x 3 Skin: + mottled (lower extremities) Diagnostics Laboratory Results Results Past 24 Hours Test 02/27/18 15:05 02/27/18 16:00 02/27/18 20:32 Range/Units White Blood Count 11.81 4.8-10.8 K/uL Red Blood Count 4.19 4.2-5.4 M/uL Hemoglobin 11.9 12.0-16.0 g/dL Hematocrit 38.9 37-47 % Mean Corpuscular Volume 92.8 80-100 fL Mean Corpuscular Hemoglobin 28.4 25-34 pg Mean Corpuscular Hemoglobin Concent 30.6 32-36 g/dl Platelet Count 316 130-400 K/uL Mean Platelet Volume 9.5 7.4-10.4 fL Neutrophils (%) (Auto) 73.0 % Lymphocytes (%) (Auto) 16.2 % Monocytes (%) (Auto) 7.2 % Eosinophils (%) (Auto) 1.9 % Basophils (%) (Auto) 0.3 % Neutrophils # (Auto) 8.63 1.4-6.5 K/uL Lymphocytes # (Auto) 1.91 1.2-3.4 K/uL Monocytes # (Auto) 0.85 0.11-0.59 K/uL Eosinophils # (Auto) 0.22 0-0.5 K/uL Basophils # (Auto) 0.04 0-0.2 K/uL RDW Standard Deviation 54.9 36.4-46.3 fL RDW Coefficient of Variation 16.2 11.5-14.5 % Immature Granulocyte % (Auto) 1.4 % Immature Granulocyte # (Auto) 0.16 0.00-0.02 K/uL Prothrombin Time 10.3 9.0-12.0 SECONDS Prothromb Time International Ratio 1.0 0.9-1.1 Activated Partial Thromboplast Time 24.7 21.0-31.0 SECONDS Partial Thromboplastin Ratio 1.0 Sodium Level 139 136-145 mmol/L Potassium Level 4.0 3.5-5.1 mmol/L Chloride Level 106 98-107 mmol/L Carbon Dioxide Level 27 21-32 mmol/L Anion Gap 6.0 3-11 mmol/L Blood Urea Nitrogen 14 7-18 mg/dl Creatinine 1.32 0.60-1.20 mg/dl Estimated GFR () 50.3 Estimated GFR (Non- 43.4 BUN/Creatinine Ratio 10.3 10-20 Random Glucose 160 70-99 mg/dl Calcium Level 8.8 8.5-10.1 mg/dl Magnesium Level 2.3 1.8-2.4 mg/dl Total Bilirubin 0.4 0.2-1 mg/dl Aspartate Amino Transf (AST/SGOT) 19 15-37 U/L Alanine Aminotransferase (ALT/SGPT) 23 12-78 U/L Alkaline Phosphatase 89 45-117 U/L Troponin I < 0.015 0-0.045 ng/ml Pro-B-Type Natriuretic Peptide 98 0-900 pg/ml Total Protein 7.4 6.4-8.2 gm/dl Albumin 2.9 3.4-5.0 gm/dl Globulin 4.5 2.5-4.0 gm/dl Albumin/Globulin Ratio 0.6 0.9-2 Thyroid Stimulating Hormone (TSH) 1.460 0.300-4.500 uIu/ml Free Thyroxine 1.34 0.80-1.60 ng/dl Thyroxine (T4) 10.7 4.5-10.9 mcg/dl Urine Color YELLOW Urine Appearance CLEAR CLEAR Urine pH 7.0 4.5-7.5 Urine Specific [place] 1.014 1.000-1.030 Urine Protein NEG NEG Urine Glucose (UA) NEG NEG Urine Ketones NEG NEG Urine Occult Blood NEG NEG Urine Nitrite POS NEG Urine Bilirubin NEG NEG Urine Urobilinogen NEG NEG Urine Leukocyte Esterase SMALL NEG Urine WBC (Auto) >30 0-5 /hpf Urine RBC (Auto) 0-4 0-4 /hpf Urine Hyaline Casts (Auto) 1-5 0-5 /lpf Urine Epithelial Cells (Auto) 5-10 0-5 /lpf Urine Bacteria (Auto) 2+ NEG Bedside Glucose 114 70-90 mg/dl Microbiology Results 02/27/18 Blood Culture, Received Pending 02/27/18 Blood Culture, Received Pending 02/27/18 Urine Culture, Received Pending Impression Assessment and Plan 62 year old female who followed with cardiology with last visit at [facility] on 02/24/18 which details that this is a patient with: right sided heart failure secondary to long-standing history of obesity hypoventilation syndrome, COPD exacerbation, tracheostomy. -recently hospitalized with aggressive diuresis, greater than 50 lbs lost with IV furosemide. -Up until the visit at [facility] on 02/24/18, patient was on torsemide 30 mg daily -Because of progressive weight gain, with associated worsening of her LE edema, dyspnea, patient was givem IV Lasix and started on Bumex 1 mg - 1 tab BID as outpatient -Patient arrives to the ED because symptoms of weight gain with lower extremity swelling and dyspnea has not imported despite outpatient changes in diuretic therapies -Patient was on room air and no CXR signs of pulmonary edema. She was given IV Bumex in the ER and seen by hospitalist for admission. -plan is to give Lasix 40 mg IV BID for now, fluid restriction of 1500 ml daily , monitor electrolytes while patient is on high dose diuretics -cardiology consult and renal requested for further assistance with fluid management there is no obvious signs of infection and while patient received cefepime in the ED, there is no need to continue cefepime at this time, follow up blood and urine culture Renal function, history of CKD, on diuretics -renal consult requested Diabetes on insulin -patient is on insulin pump. patient denies of using subcutaneous insulin at home -patient prefers to monitor her own insulin pump in the hospital, pharmacy glycemic consult placed and to allow for patient to do this, nursing staff to still check fingerstick glucose History of Hypothyroidism -TFTs checked, not hypothyroid, T4 10.7 is somewhat high -at home she takes 300 mcg daily on Tuesday and and 200 mcg daily on other days -continue as 200 mcg daily and have patient repeat TFTs in 3 weeks as outpatient Dyspnea -saturating well on room air -duonebs prn if shortness of breath -optimize volume status -Tracheostomy care as per nursing -may have obesity hypoventilation syndrome, monitor Morbid Obesity with BMI 76 DVT ppx Full Code Family member daughter [phone] Advanced Directives Existing Living Will: No Existing Power of Hand Laster: No Resuscitation Status VTE Prophylaxis Will order VTE Prophylaxis: Yes
[2018-02-27] MEDS: FUROSEMIDE INJ 40 MG in SYRINGE 0 ML IV SCH (22:08)
[2018-02-27] MEDS: METOPROLOL TARTRATE 25 MG TAB PO SCH (22:09)
[2018-02-27] MEDS: BuPROPion SR 100 MG TABCR PO SCH (22:10)
[2018-02-27] MEDS: TOPIRAMATE 100 MG TAB PO SCH (22:11)
[2018-02-27] MEDS: MONTELUKAST SOD 10 MG TAB PO SCH (22:12)
[2018-02-27] MEDS: ATORVASTATIN 20 MG TAB PO SCH (22:13)
[2018-02-28] VITALS (17 sets, daily range): BP systolic 109–145; BP diastolic 68–89; PULSE 74–88; TEMP 36.6–37; O2SAT 92–99; Ht 157.5 cm; Wt 177.3 kg
[2018-02-28] MEDS: LEVOTHYROXINE 200 MCG TAB PO SCH (05:40)
[2018-02-28 06:38] LABS: BASO % 0.3 %; BASO ABS # 0.03 K/uL (0-0.2); HEMATOCRIT 36.3 % (37-47); HEMOGLOBIN 11.1 g/dL (12.0-16.0); IG# 0.11 K/uL (0.00-0.02); LYMPH % 18.2 %; LYMPH ABS # 1.85 K/uL (1.2-3.4); MEAN CELL VOLUME 93.1 fL (80-100); MEAN CORPUSCULAR HEMOGLOBIN 28.5 pg (25-34); MEAN CORPUSCULAR HGB CONC 30.6 g/dl (32-36); MEAN PLATELET VOLUME 9.3 fL (7.4-10.4); MONO % 9.3 %; MONO ABS # 0.94 K/uL (0.11-0.59); NEUT % 69.1 %; NEUT ABS # 7.02 K/uL (1.4-6.5); PLATELET COUNT 281 K/uL (130-400); RED CELL DISTRIBUTION WIDTH CV 16.1 % (11.5-14.5); RED CELL DISTRIBUTION WIDTH SD 55.1 fL (36.4-46.3); WHITE BLOOD COUNT 10.15 K/uL (4.8-10.8)
[2018-02-28] MEDS: ALBUT/IPRATROP 3MG/0.5MG NEB 3 ML VIAL INH PRN ×4 (07:02→19:04)
[2018-02-28 07:11] LABS: ALBUMIN 2.7 gm/dl (3.4-5.0); CALCIUM 8.7 mg/dl (8.5-10.1); CREATININE 1.32 mg/dl (0.60-1.20); POTASSIUM 3.8 mmol/L (3.5-5.1)
[2018-02-28] MEDS: BuPROPion SR 100 MG TABCR PO SCH ×2 (08:02→20:19)
[2018-02-28] MEDS: PANTOprazole SOD 40 MG TAB PO SCH (08:02)
[2018-02-28] MEDS: ISOSORBIDE MONONITRATE 60 MG TABCR PO SCH (08:02)
[2018-02-28] MEDS: METOPROLOL TARTRATE 25 MG TAB PO SCH ×2 (08:02→20:17)
[2018-02-28] MEDS: ASPIRIN 81 MG ECTAB PO SCH (08:02)
[2018-02-28] MEDS: FUROSEMIDE INJ 40 MG in SYRINGE 0 ML IV SCH ×3 (08:02→22:22)
[2018-02-28] MEDS: TOPIRAMATE 100 MG TAB PO SCH ×2 (08:02→20:19)
[2018-02-28] MEDS: ENOXAPARIN 40 MG/0.4 ML SYR SQ SCH (08:03)
--- NOTE | 2018-02-28 09:55 | Clinical Documentation Query ---
CLINICAL DOCUMENTATION QUERY 62 year old female who presents to the Emergency Room with complaints of worsening leg swelling. Current documentation states right heart failure. In your clinical opinion is this patient being managed for: ( ) Acute RV systolic CHF ( ) Acute RV systolic and diastolic CHF ( ) Acute diastolic (preserved EF) CHF ( ) Not Agree ( x ) Other explanation of clinical findings (Please Explain) ( ) Unable to determine (Please Define) ( ) Need to Discuss * Acute on chronic left ventricular diastolic heart failure * Acute on chronic right ventricular systolic heart failure The medical record reflects the following clinical findings, treatment, and risk factors. Clinical Indicators: Lower extremity edema, + shortness of breath. Echo from 01/15/08 shows RV enlargement with mild to moderate RV hypokinesis. LVEF 55-60%, grade I diastolic dysfunction, and tricuspid regurgitation envelope was inadequate to allow calculation of the pulmonary artery systolic pressure. Treatment: Telemetry, I/O's, daily weights, IV Bumex, IV Lasix, Risk Factors: Age, obesity, CKD, HTN, RV hypokinesis. Please clarify and document your clinical opinion in the progress notes and discharge summary. Terms such as "probable", "suspected", "likely", "questionable", "possible", or "still to be ruled out" are acceptable. IF IN AGREEMENT, YOU MUST DOCUMENT ABOVE DIAGNOSTIC STATEMENT IN DAILY PROGRESS NOTES AND DISCHARGE SUMMARY. This document is not part of the patient's record. Thank You, Andrzej Romeo, GOYO [phone]
--- NOTE | 2018-02-28 10:05 | NEPHROLOGY CONSULTATION ---
DATE OF CONSULTATION: 02/28/2018 ATTENDING OF RECORD: Dr. Sotelo. REASON FOR CONSULTATION: CKD. HISTORY OF PRESENT ILLNESS: This is a 62-year-old female with a significant morbid obesity with right-sided heart failure with a tracheostomy since 2007 after a cardiopulmonary arrest who manages this at home with the help of her daughter. The patient has had progressively worsening weight gains with worsening shortness of breath and chest pain with exertion. Despite titration of diuretics as an outpatient, weight gain is not improving. The patient feels that she has about 20 pounds of fluid on her at this point. Besides feeling heavy from the fluid with the baseline shortness of breath and chest pain with exertion, no other complaints. PAST MEDICAL HISTORY: COPD, hypothyroidism, chronic kidney disease stage III, type 2 diabetes, heart disease, right-sided heart failure, obesity, hypoventilation syndrome, COPD. PAST SURGICAL HISTORY: Tracheostomy, appendectomy, hysterectomy, tonsillectomy, cholecystectomy. FAMILY HISTORY: Daughter with multiple kidney stones requiring ureter diversion. SOCIAL HISTORY: Lives at home with daughter. No smoking, no alcohol, no drugs. CURRENT MEDICATIONS: Aspirin 81 mg a day, Wellbutrin 100 mg a day, folic acid 1 mg a day, Imdur 60 mg a day, Protonix 40 mg a day, Topamax 100 mg a day, Lovenox 40 mg subQ daily, Synthroid 200 mcg daily, Lipitor 20 mg at night, Wellbutrin 200 mg at night, insulin, Lopressor 12.5 mg p.o. b.i.d., Singulair 10 mg at night, Topamax 200 mg at night, Lasix 40 mg IV b.i.d. REVIEW OF SYSTEMS: No headaches, no blurry vision, no dysphagia. Positive trach with chronic shortness of breath with exertion. Positive chest pain with exertion. No nausea, vomiting, no diarrhea or constipation, no dysuria or hematuria. No wounds or ulcers. All other review of systems otherwise negative. PHYSICAL EXAMINATION: VITAL SIGNS: Temperature 37, pulse 77, respiratory rate is 24, blood pressure is 142/84, satting 99% on 30% FIO2, trach collar. GENERAL: Awake, alert, oriented x3, morbidly obese. EYES: No scleral icterus. NECK: Positive trach. PULMONARY: Decreased breath sounds at the bases. CARDIAC: Distant heart sounds. ABDOMEN: With a large pannus. EXTREMITIES: Multiple scratch lu on left forearm from a new puppy with significant edema in the lower extremities as well as in the pannus. NEUROLOGICAL: Nonfocal. DERMATOLOGIC: No wounds, although does have multiple scratch lu on the left forearm. LABORATORIES: Sodium was 139, potassium 3.8, chloride is 106, bicarbonate is 27, BUN is 14, creatinine is 1.32, glucose 128, calcium is 8.7, mag is 2.2, albumin is 2.7. White count is 10, H&H 11 and 36, platelet count is 281. UA with pH of 7, specific gravity 1.014, positive nitrites, small leukocyte esterase. INR is 1. Blood cultures and urine cultures are pending. Chest x-ray: Cardiomegaly with volume overload. Venous Doppler: No sonographic evidence of DVT in the right or left lower extremities. ASSESSMENT AND PLAN: 1. Chronic kidney disease stage III with baseline creatinine 1.32 in the setting of severe right-sided heart failure with morbid obesity. Currently on IV diuretics. Albumin is 2.7. Could consider adding albumin if needed to help mobilize extra fluid. Currently the blood pressures are stable and would hold off on albumin for now. Studies have shown that albumin is really only beneficial if blood pressures are low. If creatinine continues to trend up aggressively with the appropriate diuresis, could consider though adding albumin in the next couple days. I greatly appreciate cardiology as well as primary hospitalist's help in the management of this complicated unfortunate person. Hopefully, will be able to tolerate the diuretics and okay with creatinine trending up since medically necessary to remove fluid. Appreciate consultation. ALMAZ
--- NOTE | 2018-02-28 10:26 | Pharmacy Progress Note ---
Glycemic Control Intl Consult Date of Service Feb 28, 2018. Scope Glycemic Pharmacist consulted by Dr Lane on 02/27/18 for glycemic control and to write orders per [facility] inpatient glycemic control protocol Objective Weight (Kilograms): 189.100 Accuchecks BSG (last 24hrs): Test 02/27/18 15:05 02/27/18 20:32 02/28/18 00:24 02/28/18 04:19 Random Glucose 160 mg/dl (70-99) Bedside Glucose 114 mg/dl (70-90) 96 mg/dl (70-90) 118 mg/dl (70-90) Test 02/28/18 06:05 02/28/18 06:40 Random Glucose 128 mg/dl (70-99) Bedside Glucose 119 mg/dl (70-90) Laboratory Data (last 24hrs) Test 02/27/18 15:05 02/28/18 06:05 Anion Gap 6.0 mmol/L 6.0 mmol/L BUN/Creatinine Ratio 10.3 10.3 Blood Urea Nitrogen 14 mg/dl 14 mg/dl Creatinine 1.32 mg/dl 1.32 mg/dl Potassium Level 4.0 mmol/L 3.8 mmol/L Sodium Level 139 mmol/L 139 mmol/L White Blood Count 11.81 K/uL 10.15 K/uL Red Blood Count 4.19 M/uL 3.90 M/uL Hemoglobin 11.9 g/dL 11.1 g/dL Hematocrit 38.9 % 36.3 % Mean Corpuscular Volume 92.8 fL 93.1 fL Mean Corpuscular Hemoglobin 28.4 pg 28.5 pg Mean Corpuscular Hemoglobin Concent 30.6 g/dl 30.6 g/dl Platelet Count 316 K/uL 281 K/uL Mean Platelet Volume 9.5 fL 9.3 fL Neutrophils (%) (Auto) 73.0 % 69.1 % Lymphocytes (%) (Auto) 16.2 % 18.2 % Monocytes (%) (Auto) 7.2 % 9.3 % Eosinophils (%) (Auto) 1.9 % 2.0 % Basophils (%) (Auto) 0.3 % 0.3 % Neutrophils # (Auto) 8.63 K/uL 7.02 K/uL Lymphocytes # (Auto) 1.91 K/uL 1.85 K/uL Monocytes # (Auto) 0.85 K/uL 0.94 K/uL Eosinophils # (Auto) 0.22 K/uL 0.20 K/uL Basophils # (Auto) 0.04 K/uL 0.03 K/uL Recent Pertinent Medications Outpatient Anti-diabetic Regimen: Medtronic Paradigm Revel 723 Insulin Pump (Serial Number: [id number]) Infusion Set: Sure-T Insulin: Humalog Basal Rate: 0:00 5.00 u/hr 7:00 5.50 u/hr Bolus wizard: on and using ICR: 1:2 ISF: 1:15 Blood Glucose Goals: 110 to 130 Active Insulin Time: 3 hours Assessment & Plan ASSESSMENT: * Pt is to manage BSGs with insulin pump per outpatient settings. * RN will have patient read and sign agreement [id number] Insulin Pump Therapy Patient Agreement. * RN will provide and explain form [id number] Flowsheet for Patient * Patient will document their insulin dose given on [id number] which is kept at the bedside, available to caregivers upon request, and which becomes part of the permanent medical record. If at any time the patients condition evidences that he/she is not able to manage the insulin pump (i.e. frequent hypo/hyperglycemia) Pharmacy will assume glycemic control by discontinuing the pump & managing with SQ basal bolus insulin regimen for the interim. PLAN FOR INPATIENT GLYCEMIC CONTROL: * Continue pt own insulin pump per outpatient settings * Please note that the plan above was derived based on current level of insulin resistance and hospital stress. These recommendations are appropriate for inpatient admission only. Plan of care upon discharge will need to be reassessed to avoid potential outpatient hypo/hyperglycemia. Thank you.
--- NOTE | 2018-02-28 13:19 | Cardiology Consultation ---
Cardiology Consultation Date of Service Feb 28, 2018. (Nataliya Kennedy, JONE) Cardiology Consultation Requesting Physician: Dr. Lane Attending [facility]: Dr. France HPI: Whit Connelly is a 62 year old female with complex history including chronic right sided heart failure secondary to long-standing history of obesity , hypoventilation syndrome, COPD exacerbation, tracheostomy in 2007. Other history includes an admission at [facility] in 2007 having presented with shortness of breath. Shortly after presentation she had agonal respirations and went into cardiopulmonary arrest. She was successfully resuscitated receiving CPR and ACLS she eventually required tracheostomy and inferior vena cava filter which have remained in place in the interim. She was recently hospitalized for acute right sided heart failure, treated with aggressive diuresis, greater than 50 lbs lost with IV furosemide. Unfortunately post discharge, patient quickly regained weight/fluid. She initially presented to our office wiht Dr. Marley several weeks ago, approx 30 -40 lbs above discharge weight with associated LE edema, dyspnea. Torsemide was increased from 20 to 30 mg daily. 1 week later at cardiology f/u, weight was up additional 5 lbs wiht worsening symptoms. She declined further titration of torsemide due to "drying out her trach". She believed torsemide was no longer "effective". She declined hospitalization at that time. She was treated with one dose IV furosemide and started on Bumex 1 mg BID. Over the weekend, patient reported continued weight gain, LE edema, and dyspnea. She called the office on Tuesday morning wiht worsening symptoms and was referred to ER for evaluation and treatment. She was started on IV furosemide 40 mg BID. At time of consult, patient feeling slightly improved since admission but notes significant fluid "all over my body". She reports SOB at rest. She denies chest pain. She reports ongoing abdominal bloating and worsening LE edema. No dizziness. No palpitations or tachypalpitations. Review of Systems A Complete Review of 10 Systems is as stated above or negative. Past Medical History: Difficult intubation Respiratory failure, acute COPD, severity to be determined Anxiety state Hypothyroidism ATTEN TO TRACHEOSTOMY (7.0 Shiley XLT cuffed proximally extended tracheostomy tube) Hypersomnia with sleep apnea Migraine with aura Dyslipidemia, goal LDL below 70 High triglycerides Hemoptysis Impaired physical mobility No diabetic retinopathy in both eyes Kidney disease, chronic, stage III (GFR 30-59 ml/mi Type 2 diabetes mellitus with hemoglobin A1c goal of less than 8.5% Coronary artery disease Bronchiectasis Tracheobronchitis Tracheostomy status Z93.0 Hypoventilation associated with obesity syndrome HTN, goal below 140/90 Body mass index (BMI) greater than or equal to 70 in adult 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 lives with daughter. No history of tobacco or alcohol use. Allergies: Amoxicillin; Doxycycline; Duratuss dm; Elavil [amitriptyline hcl]; Glucophage [metformin hydrochloride]; Neurontin [gabapentin]; and Pcn [ penicillins] Reported Home Medications Medications Dose Route/Sig Max Daily Dose Days Date Category Dose Instructions Fluconazole 100 Mg Tab 100 Mg PO PRN UD 02/27/18 Reported Tylenol (Acetaminophen) 500 Mg Tab 500 Mg PO PRN 02/27/18 Reported Vitamin D 94055 Unit (Ergocalciferol) 50,000 Unit Cap 50,000 Unit PO MWF 02/27/18 Reported Synthroid (Levothyroxine Sodium) 200 Mcg Tab 300 Mcg PO 2XWK 02/27/18 Reported TAKE MON & THUR Synthroid (Levothyroxine Sodium) 200 Mcg Tab 200 Mcg PO 5XWK 02/27/18 Reported TAKE SUN, TUES, WED, FRI, SAT Lantus (Insulin Glargine) 100 Unit/Ml Inj 75 Units SQ BID UD 02/27/18 Reported FOR BACK UP IF PUMP STOPS WORKING. Hydrogen Peroxide 3 % Brianna UD 02/27/18 Reported TO BE USED WITH TRACH CARE Combivent Respimat (Ipratropium-Albuterol) 1 Aer Aer 1 Puffs INH QID 02/27/18 Reported Wellbutrin Sr (Bupropion HCl) 100 Mg Ertab 200 Mg PO HS 02/27/18 Reported Bumetanide 1 Mg Tab 1 Mg PO BID 02/27/18 Reported Tessalon Perles (Benzonatate) 100 Mg Cap 100 Mg PO TID PRN 02/27/18 Reported Azithromycin 250 Mg Tab 250 Mg PO MWF 02/27/18 Reported Aspir-81 (Aspirin) 81 Mg Tab 1 Tab PO DAILY 01/15/18 Reported Ketoconazole 45 Appln/15 Gm Cr 1 Appln TOP BID PRN 01/10/18 Reported apply to feet Triamcinolone Acetonide (Triamcinolone Acet) 45 Appln/15 Gm Cr 1 Appln TOP BID 01/10/18 Reported apply to affected area(s) Topamax (Topiramate) 200 Mg Tab 200 Mg PO HS 01/04/17 Reported Multivitamin (Multivitamins) Tab 1 Tab PO DAILY 01/04/17 Reported Montelukast Sodium (Montelukast Sod) 10 Mg Tab 10 Mg PO HS 01/04/17 Reported Ultram (Tramadol HCl) 50 Mg Tab 50 Mg PO BID PRN 01/04/17 Reported Potassium Chloride Cr (Potassium Chloride) 10 Meq Tab 10 Meq PO BID 01/04/17 Reported Ativan (Lorazepam) 1 Mg Tab 1 Mg PO Q8 PRN 01/04/17 Reported Proair Respiclick (Albuterol Sulfate) 108 Mcg/Act Aer 2 Puffs INH Q4H PRN 01/04/17 Reported Insulin Humalog Pump (Insulin Human Lispro) Pump 1 Ea N/A UD 01/30/15 Reported max daily dose 400 units Pantoprazole Sodium (Pantoprazole) 40 Mg Tab 40 Mg PO DAILY 01/30/15 Reported Topiramate 100 Mg Tab 100 Mg PO QAM 01/30/15 Reported Imdur Ext Rel (Isosorbide Mononitrate) 60 Mg Ertab 60 Mg PO DAILY 01/30/15 Reported Folic Acid 1 Mg Tab 1 Mg PO DAILY 01/30/15 Reported Lipitor (Atorvastatin Calcium) 20 Mg Tab 20 Mg PO QPM 01/30/15 Reported Lopressor (Metoprolol Tartrate) 25 Mg Tab 12.5 Mg PO BID 01/30/15 Reported Wellbutrin Sr (Bupropion HCl) 100 Mg Ertab 100 Mg PO QAM 01/30/15 Reported Duoneb (Ipratropium-Albuterol) 3 Ml Nebu 1 Treatment INH QID 01/30/15 Reported Nitrostat (Nitroglycerin) 0.4 Mg Tab 0.4 Mg UT UD PRN 12/02/[address] ONE TABLET UNDER THE TONGUE EVERY 5 MINUTES FOR UP TO 3 DOSES OVER 15 MINUTES IF NEEDED FOR CHEST PAIN. PHYSICAL EXAMINATION: Last 8 Hrs Date Time Temp Pulse Resp B/P (MAP) Pulse Ox O2 Delivery O2 Flow Rate FiO2 02/28/18 07:02 77 24 99 Trach Collar 30 02/28/18 04:00 97 Humidified Oxygen 6.0 28 02/28/18 03:41 37.0 87 18 142/84 (103) 95 General: Obese. Eyes: conjunctiva are pink and non-injected, sclera clear Neck: tracheostomy in place Lungs: decreased breath sounds, otherwise clear. Cardiac Exam: - regular heart sounds. distant heart sounds Abdomen: abdomen large panniculus. non-tender, no abnormal masses and no hepatosplenomegaly Extremities: 2+ LE edema b/l. Chronic stasis changes. Neuro: grossly normal exam Psych: appropriate affect and insight. Data: EKG on admission 02/27/18: NSR, LAD, Incomplete RBBB no significant change from previous Repeat EKG 02/28/18: NSR, 1st degree AV block, LAD. incomplete RBBB No change form previous Chest xray on admission: Evidence of volume overload/CHF Venous duplex on admission - Difficult study but no evidence of b/l DVT Echocardiogram performed during her hospital stay in Dec 2017, performed at [facility] : Technically difficult and limited study. The right ventricle was noted to be at least mildly enlarged on limited visualization with mild to moderate right ventricular systolic hypokinesis. The left ventricular systolic function was normal with grade 1 diastolic dysfunction. The tricuspid regurgitation envelope was inadequate to allow calculation of the right ventricular systolic pressure or pulmonary artery systolic pressure. Compared to prior echocardiogram, right ventricular chamber enlargement systolic function were new findings. Labs this admission: Last 24 Hours Test 02/27/18 15:05 02/27/18 16:00 02/27/18 20:32 02/28/18 00:24 White Blood Count 11.81 K/uL Red Blood Count 4.19 M/uL Hemoglobin 11.9 g/dL Hematocrit 38.9 % Mean Corpuscular Volume 92.8 fL Mean Corpuscular Hemoglobin 28.4 pg Mean Corpuscular Hemoglobin Concent 30.6 g/dl Platelet Count 316 K/uL Mean Platelet Volume 9.5 fL Neutrophils (%) (Auto) 73.0 % Lymphocytes (%) (Auto) 16.2 % Monocytes (%) (Auto) 7.2 % Eosinophils (%) (Auto) 1.9 % Basophils (%) (Auto) 0.3 % Neutrophils # (Auto) 8.63 K/uL Lymphocytes # (Auto) 1.91 K/uL Monocytes # (Auto) 0.85 K/uL Eosinophils # (Auto) 0.22 K/uL Basophils # (Auto) 0.04 K/uL RDW Standard Deviation 54.9 fL RDW Coefficient of Variation 16.2 % Immature Granulocyte % (Auto) 1.4 % Immature Granulocyte # (Auto) 0.16 K/uL Prothrombin Time 10.3 SECONDS Prothromb Time International Ratio 1.0 Activated Partial Thromboplast Time 24.7 SECONDS Partial Thromboplastin Ratio 1.0 Sodium Level 139 mmol/L Potassium Level 4.0 mmol/L Chloride Level 106 mmol/L Carbon Dioxide Level 27 mmol/L Anion Gap 6.0 mmol/L Blood Urea Nitrogen 14 mg/dl Creatinine 1.32 mg/dl Estimated GFR () 50.3 Estimated GFR (Non- 43.4 BUN/Creatinine Ratio 10.3 Random Glucose 160 mg/dl Calcium Level 8.8 mg/dl Magnesium Level 2.3 mg/dl Total Bilirubin 0.4 mg/dl Aspartate Amino Transf (AST/SGOT) 19 U/L Alanine Aminotransferase (ALT/SGPT) 23 U/L Alkaline Phosphatase 89 U/L Troponin I < 0.015 ng/ml Pro-B-Type Natriuretic Peptide 98 pg/ml Total Protein 7.4 gm/dl Albumin 2.9 gm/dl Globulin 4.5 gm/dl Albumin/Globulin Ratio 0.6 Thyroid Stimulating Hormone (TSH) 1.460 uIu/ml Free Thyroxine 1.34 ng/dl Thyroxine (T4) 10.7 mcg/dl Urine Color YELLOW Urine Appearance CLEAR Urine pH 7.0 Urine Specific [place] 1.014 Urine Protein NEG Urine Glucose (UA) NEG Urine Ketones NEG Urine Occult Blood NEG Urine Nitrite POS Urine Bilirubin NEG Urine Urobilinogen NEG Urine Leukocyte Esterase SMALL Urine WBC (Auto) >30 /hpf Urine RBC (Auto) 0-4 /hpf Urine Hyaline Casts (Auto) 1-5 /lpf Urine Epithelial Cells (Auto) 5-10 /lpf Urine Bacteria (Auto) 2+ Bedside Glucose 114 mg/dl 96 mg/dl Test 02/28/18 04:19 02/28/18 06:05 02/28/18 06:40 02/28/18 11:10 Bedside Glucose 118 mg/dl 119 mg/dl 150 mg/dl White Blood Count 10.15 K/uL Red Blood Count 3.90 M/uL Hemoglobin 11.1 g/dL Hematocrit 36.3 % Mean Corpuscular Volume 93.1 fL Mean Corpuscular Hemoglobin 28.5 pg Mean Corpuscular Hemoglobin Concent 30.6 g/dl Platelet Count 281 K/uL Mean Platelet Volume 9.3 fL Neutrophils (%) (Auto) 69.1 % Lymphocytes (%) (Auto) 18.2 % Monocytes (%) (Auto) 9.3 % Eosinophils (%) (Auto) 2.0 % Basophils (%) (Auto) 0.3 % Neutrophils # (Auto) 7.02 K/uL Lymphocytes # (Auto) 1.85 K/uL Monocytes # (Auto) 0.94 K/uL Eosinophils # (Auto) 0.20 K/uL Basophils # (Auto) 0.03 K/uL RDW Standard Deviation 55.1 fL RDW Coefficient of Variation 16.1 % Immature Granulocyte % (Auto) 1.1 % Immature Granulocyte # (Auto) 0.11 K/uL Sodium Level 139 mmol/L Potassium Level 3.8 mmol/L Chloride Level 106 mmol/L Carbon Dioxide Level 27 mmol/L Anion Gap 6.0 mmol/L Blood Urea Nitrogen 14 mg/dl Creatinine 1.32 mg/dl Est Creatinine Clear Calc Drug Dose 74.7 ml/min Estimated GFR () 50.3 Estimated GFR (Non- 43.4 BUN/Creatinine Ratio 10.3 Random Glucose 128 mg/dl Calcium Level 8.7 mg/dl Magnesium Level 2.2 mg/dl Total Bilirubin 0.7 mg/dl Aspartate Amino Transf (AST/SGOT) 19 U/L Alanine Aminotransferase (ALT/SGPT) 22 U/L Alkaline Phosphatase 87 U/L Total Protein 7.0 gm/dl Albumin 2.7 gm/dl Globulin 4.3 gm/dl Albumin/Globulin Ratio 0.6 IMPRESSION: 62 year old female 1. Acute on chronic right sided heart failure with underlying hypoventilation syndrome/obesity/COPD 2. S/P tracheostomy in 2007 3. CKD - at baseline 4. Hypertension - controlled 5. Morbid obesity PLAN: increase furosemide to 40 mg IV q 8 hours. This was the dose she received last admission with good results Monitor electrolyses/renal function 1500 ml fluid restriction Low sodium diet. Monitor I+O's Daily weight with standing scale for accuracy. Continue all other medications including ASA, statin, beta nicolle, isosorbide. Will follow. Case to be discussed wiht Dr. France (Nataliya Kennedy PA-C) CARDIOLOGY ATTENDING ADDENDUM: The patient was seen and personally examined. Agree with Nataliya Kennedy PA-C's findings and plans as documented above. Agree with diuretics and fluid restriction. (Mohit France, DO)
--- NOTE | 2018-02-28 13:45 | Progress Note ---
Medicine Progress Note Date & Time of Visit: Feb 28, 2018 at 13:41 . Subjective Feels better. Less short of breath. Episode of chest pressure yesterday, none today. Occasional cough. No nausea or vomiting. Constipated. Has Payne catheter. Daughter visiting. . Objective Last 8 Hrs Date Time Temp Pulse Resp B/P (MAP) Pulse Ox O2 Delivery O2 Flow Rate FiO2 02/28/18 12:36 96 Trach Collar 6.0 28 02/28/18 11:21 74 22 98 Trach Collar 30 02/28/18 11:10 36.9 76 20 109/78 (88) 94 Trach Collar 02/28/18 08:01 96 Trach Collar 6.0 28 02/28/18 07:36 36.8 80 20 145/82 (103) 96 Trach Collar 02/28/18 07:02 77 24 99 Trach Collar 30 Physical Exam: General- sitting in chair, no distress Neck- tracheostomy Lungs- mild wheezing, few rhonchi; no respiratory distress Cardiovascular- RRR; I/ systolic murmur LSB; no gallop appreciated; difficult to assess neck pain; 3-4+ pretibial edema Abdomen- obese, + bowel sounds, soft, nontender Extremities- no cyanosis; no calf tenderness Neuro- alert, oriented Skin- warm & dry . Laboratory Results: Last 24 Hours Test 02/27/18 15:05 02/27/18 16:00 02/27/18 20:32 02/28/18 00:24 White Blood Count 11.81 K/uL Red Blood Count 4.19 M/uL Hemoglobin 11.9 g/dL Hematocrit 38.9 % Mean Corpuscular Volume 92.8 fL Mean Corpuscular Hemoglobin 28.4 pg Mean Corpuscular Hemoglobin Concent 30.6 g/dl Platelet Count 316 K/uL Mean Platelet Volume 9.5 fL Neutrophils (%) (Auto) 73.0 % Lymphocytes (%) (Auto) 16.2 % Monocytes (%) (Auto) 7.2 % Eosinophils (%) (Auto) 1.9 % Basophils (%) (Auto) 0.3 % Neutrophils # (Auto) 8.63 K/uL Lymphocytes # (Auto) 1.91 K/uL Monocytes # (Auto) 0.85 K/uL Eosinophils # (Auto) 0.22 K/uL Basophils # (Auto) 0.04 K/uL RDW Standard Deviation 54.9 fL RDW Coefficient of Variation 16.2 % Immature Granulocyte % (Auto) 1.4 % Immature Granulocyte # (Auto) 0.16 K/uL Prothrombin Time 10.3 SECONDS Prothromb Time International Ratio 1.0 Activated Partial Thromboplast Time 24.7 SECONDS Partial Thromboplastin Ratio 1.0 Sodium Level 139 mmol/L Potassium Level 4.0 mmol/L Chloride Level 106 mmol/L Carbon Dioxide Level 27 mmol/L Anion Gap 6.0 mmol/L Blood Urea Nitrogen 14 mg/dl Creatinine 1.32 mg/dl Estimated GFR () 50.3 Estimated GFR (Non- 43.4 BUN/Creatinine Ratio 10.3 Random Glucose 160 mg/dl Calcium Level 8.8 mg/dl Magnesium Level 2.3 mg/dl Total Bilirubin 0.4 mg/dl Aspartate Amino Transf (AST/SGOT) 19 U/L Alanine Aminotransferase (ALT/SGPT) 23 U/L Alkaline Phosphatase 89 U/L Troponin I < 0.015 ng/ml Pro-B-Type Natriuretic Peptide 98 pg/ml Total Protein 7.4 gm/dl Albumin 2.9 gm/dl Globulin 4.5 gm/dl Albumin/Globulin Ratio 0.6 Thyroid Stimulating Hormone (TSH) 1.460 uIu/ml Free Thyroxine 1.34 ng/dl Thyroxine (T4) 10.7 mcg/dl Urine Color YELLOW Urine Appearance CLEAR Urine pH 7.0 Urine Specific [place] 1.014 Urine Protein NEG Urine Glucose (UA) NEG Urine Ketones NEG Urine Occult Blood NEG Urine Nitrite POS Urine Bilirubin NEG Urine Urobilinogen NEG Urine Leukocyte Esterase SMALL Urine WBC (Auto) >30 /hpf Urine RBC (Auto) 0-4 /hpf Urine Hyaline Casts (Auto) 1-5 /lpf Urine Epithelial Cells (Auto) 5-10 /lpf Urine Bacteria (Auto) 2+ Bedside Glucose 114 mg/dl 96 mg/dl Test 02/28/18 04:19 02/28/18 06:05 02/28/18 06:40 02/28/18 11:10 Bedside Glucose 118 mg/dl 119 mg/dl 150 mg/dl White Blood Count 10.15 K/uL Red Blood Count 3.90 M/uL Hemoglobin 11.1 g/dL Hematocrit 36.3 % Mean Corpuscular Volume 93.1 fL Mean Corpuscular Hemoglobin 28.5 pg Mean Corpuscular Hemoglobin Concent 30.6 g/dl Platelet Count 281 K/uL Mean Platelet Volume 9.3 fL Neutrophils (%) (Auto) 69.1 % Lymphocytes (%) (Auto) 18.2 % Monocytes (%) (Auto) 9.3 % Eosinophils (%) (Auto) 2.0 % Basophils (%) (Auto) 0.3 % Neutrophils # (Auto) 7.02 K/uL Lymphocytes # (Auto) 1.85 K/uL Monocytes # (Auto) 0.94 K/uL Eosinophils # (Auto) 0.20 K/uL Basophils # (Auto) 0.03 K/uL RDW Standard Deviation 55.1 fL RDW Coefficient of Variation 16.1 % Immature Granulocyte % (Auto) 1.1 % Immature Granulocyte # (Auto) 0.11 K/uL Sodium Level 139 mmol/L Potassium Level 3.8 mmol/L Chloride Level 106 mmol/L Carbon Dioxide Level 27 mmol/L Anion Gap 6.0 mmol/L Blood Urea Nitrogen 14 mg/dl Creatinine 1.32 mg/dl Est Creatinine Clear Calc Drug Dose 74.7 ml/min Estimated GFR () 50.3 Estimated GFR (Non- 43.4 BUN/Creatinine Ratio 10.3 Random Glucose 128 mg/dl Calcium Level 8.7 mg/dl Magnesium Level 2.2 mg/dl Total Bilirubin 0.7 mg/dl Aspartate Amino Transf (AST/SGOT) 19 U/L Alanine Aminotransferase (ALT/SGPT) 22 U/L Alkaline Phosphatase 87 U/L Total Protein 7.0 gm/dl Albumin 2.7 gm/dl Globulin 4.3 gm/dl Albumin/Globulin Ratio 0.6 Date/Time Source Procedure Growth Status 02/27/18 16:15 Blood Blood Culture Pending Received 02/27/18 16:06 Blood Blood Culture Pending Received 02/27/18 16:00 Urine,Catheterized Urine Culture - Preliminary Gram Negative Bacilli Resulted Assessment & Plan CHF Chest x-ray demonstrated cardiomegaly and pulmonary vascular congestion. Echo Dec 2017 demonstrated normal LV systolic function, LV diastolic dysfunction , decreased RV systolic function. Acute on chronic left ventricular diastolic heart failure + acute on chronic right ventricular systolic heart failure. Cardiology consulted. Continue IV diuretics. CAD Chest pressure yesterday, resolved. Serum troponin in ED normal. Continue aspirin, metoprolol, nitrates, statin. HYPERTENSION Continue metoprolol and nitrates. SLEEP APNEA / OBESITY HYPOVENTILATION SYNDROME S/P tracheostomy. Continue supplemental oxygen. DM TYPE 2 Fairly well controlled. Hemoglobin A1c 8.5 on 01/15/18. Pharmacy consulted for glycemic management. Fasting blood sugar this morning 119. Continue insulin pump. MORBID OBESITY Weight 189 kg. BMI of 76. AHA / diabetic diet. VTE PROPHYLAXIS SQ enoxaparin. Ambulate as able. DISPOSITION To be determined. Family Medicine follow-up with Dr. Leos. Cardiology follow-up with [facility]. . Current Inpatient Medications: Current Inpatient Medications Medications (Trade) Dose Ordered Sig/Fatoumata Route Start Time Stop Time Status Last Admin Dose Admin Miscellaneous Information (Consult Glycemic Management Pharmacy) 1 ea UD N/A 02/27/18 18:45 03/29/18 18:44 Aspirin (Ecotrin Tab) 81 mg DAILY PO 02/28/18 09:00 03/30/18 08:59 02/28/18 08:02 81 MG Atorvastatin Calcium (Lipitor Tab) 20 mg QPM PO 02/27/18 21:00 03/29/18 20:59 02/27/18 22:13 20 MG Bupropion HCl (Wellbutrin-Sr Tab) 100 mg QAM PO 02/28/18 09:00 03/30/18 08:59 02/28/18 08:02 100 MG Bupropion HCl (Wellbutrin-Sr Tab) 200 mg HS PO 02/27/18 21:00 03/29/18 20:59 02/27/18 22:10 200 MG Folic Acid (Folvite Tab) 1 mg DAILY PO 02/28/18 09:00 03/30/18 08:59 02/28/18 08:02 1 MG Insulin Human Lispro (HumaLOG INSULIN PUMP) 1 ea ACHS N/A 02/27/18 21:00 03/29/18 20:59 02/28/18 11:00 1 EA Isosorbide Mononitrate (Imdur Ext Rel Tab) 60 mg DAILY PO 02/28/18 09:00 03/30/18 08:59 02/28/18 08:02 60 MG Metoprolol Tartrate (Lopressor Tab) 12.5 mg BID PO 02/27/18 21:00 03/29/18 20:59 02/28/18 08:02 12.5 MG Montelukast Sodium (Singulair Tab) 10 mg HS PO 02/27/18 21:00 03/29/18 20:59 02/27/18 22:12 10 MG Pantoprazole Sodium (Protonix Tab) 40 mg DAILY PO 02/28/18 09:00 03/30/18 08:59 02/28/18 08:02 40 MG Topiramate (Topamax Tab) 100 mg QAM PO 02/28/18 09:00 03/30/18 08:59 02/28/18 08:02 100 MG Topiramate (Topamax Tab) 200 mg HS PO 02/27/18 21:00 03/29/18 20:59 02/27/18 22:11 200 MG Insulin Human Lispro (humaLOG) SLIDING SCALE PRN PRN SC 02/27/18 20:00 03/29/18 19:59 Glucose (Glucose 40% Gel) 15-30 GRAMS 15 GRAMS... UD PRN PO 02/27/18 20:00 03/29/18 19:59 Glucose (Glucose Chew Tab) 4-8 Tablets 4 Tabl... UD PRN PO 02/27/18 20:00 03/29/18 19:59 Dextrose (Dextrose 50% 50ML Syringe) 25-50ML OF 50% DW IV FOR... UD PRN IV 02/27/18 20:00 03/29/18 19:59 Glucagon (Glucagon Inj) 1 mg UD PRN SQ 02/27/18 20:00 03/29/18 19:59 Albuterol/ Ipratropium (Duoneb) 3 ml Q4R PRN INH 02/27/18 23:30 03/29/18 23:29 02/28/18 11:21 3 ML Levothyroxine Sodium (Synthroid Tab) 200 mcg DAILYBB PO 02/28/18 06:00 03/30/18 05:59 02/28/18 05:40 200 MCG Enoxaparin Sodium (Lovenox Inj) 40 mg QAM SQ 02/28/18 09:00 03/30/18 08:59 02/28/18 08:03 40 MG Furosemide 40 mg/ Syringe 4 ml @ 4 mls/min Q8 IV 02/28/18 14:00 03/30/18 13:59 UNV
[2018-02-28] MEDS ORDERED: POTASSIUM CHLORIDE 20 MEQ TABCR PO ONE (19:30)
[2018-02-28] MEDS: ATORVASTATIN 20 MG TAB PO SCH (20:13)
[2018-02-28] MEDS: MONTELUKAST SOD 10 MG TAB PO SCH (20:18)
[2018-02-28] MEDS: TRAMADOL HCL 50 MG TAB PO PRN (22:15)
[2018-02-28] MEDS: ACETAMINOPHEN 325 MG TAB PO PRN (22:17)
[2018-03-01] VITALS (15 sets, daily range): BP systolic 115–138; BP diastolic 71–81; PULSE 76–88; TEMP 36.7–37; O2SAT 92–99
[2018-03-01] MEDS: ALBUT/IPRATROP 3MG/0.5MG NEB 3 ML VIAL INH PRN ×5 (02:36→18:55)
[2018-03-01] MEDS: FUROSEMIDE INJ 40 MG in SYRINGE 0 ML IV SCH ×3 (06:13→21:03)
[2018-03-01] MEDS: LEVOTHYROXINE 200 MCG TAB PO SCH (06:13)
[2018-03-01 08:14] LABS: CALCIUM 8.7 mg/dl (8.5-10.1); CREATININE 1.46 mg/dl (0.60-1.20); POTASSIUM 3.9 mmol/L (3.5-5.1)
[2018-03-01] MEDS: BuPROPion SR 100 MG TABCR PO SCH ×2 (08:39→21:04)
[2018-03-01] MEDS: PANTOprazole SOD 40 MG TAB PO SCH (08:39)
[2018-03-01] MEDS: ASPIRIN 81 MG ECTAB PO SCH (08:39)
[2018-03-01] MEDS: ISOSORBIDE MONONITRATE 60 MG TABCR PO SCH (08:39)
[2018-03-01] MEDS: TOPIRAMATE 100 MG TAB PO SCH ×2 (08:39→21:04)
[2018-03-01] MEDS: ENOXAPARIN 40 MG/0.4 ML SYR SQ SCH (08:40)
[2018-03-01] MEDS: METOPROLOL TARTRATE 25 MG TAB PO SCH ×2 (09:17→21:05)
[2018-03-01 09:24] LABS: HEMOGLOBIN A1C 7.5 % (4.5-5.6)
--- NOTE | 2018-03-01 09:53 | Nephrology Progress Note ---
Nephrology Progress Note Date of Service: Mar 01, 2018. Subjective 62 yo female with ckd stage 3, right sided heart failure with trach and fluid overloaded. on iv diuretics. yesterday, pt was experiencing cramping in legs and low back. also concerned about secretions becoming more difficult to cough up as we diurese her. Objective Date Time Temp Pulse Resp B/P (MAP) Pulse Ox O2 Delivery O2 Flow Rate FiO2 03/01/18 08:22 36.7 86 20 132/78 (96) 95 Trach Collar 03/01/18 08:01 96 Trach Collar 6.0 28 03/01/18 07:19 83 18 94 Trach Collar 8.0 30 03/01/18 04:00 92 Trach Collar 6.0 28 03/01/18 03:36 36.8 88 20 138/71 (93) 95 03/01/18 02:37 84 18 93 Trach Collar 8.0 30 03/01/18 00:01 92 Trach Collar 6.0 28 02/28/18 23:40 36.6 88 18 127/68 (87) 92 02/28/18 20:00 98 Trach Collar 6.0 28 02/28/18 19:15 36.8 84 24 126/77 (93) 98 Trach Collar 02/28/18 19:04 82 20 93 Trach Collar 30 02/28/18 16:00 96 Trach Collar 6.0 28 02/28/18 15:36 36.6 75 22 129/89 (102) 97 Trach Collar 02/28/18 15:06 77 19 96 Trach Collar 30 02/28/18 12:36 96 Trach Collar 6.0 28 02/28/18 11:21 74 22 98 Trach Collar 30 02/28/18 11:10 36.9 76 20 109/78 (88) 94 Trach Collar Physical Exam: General-aaox3, morbid obesity Eyes-no scleral icterus ENT-mmm Neck-supple, +trach Lungs-decreased at bases Heart-rrr Abdomen-+pannus, bs+, soft, nt Extremities-+2 to 3 non-pitting edema Neuro-nonfocal Current Inpatient Medications Medications (Trade) Dose Ordered Sig/Fatoumata Route Start Time Stop Time Status Last Admin Dose Admin Miscellaneous Information (Consult Glycemic Management Pharmacy) 1 ea UD N/A 02/27/18 18:45 03/29/18 18:44 Aspirin (Ecotrin Tab) 81 mg DAILY PO 02/28/18 09:00 03/30/18 08:59 03/01/18 08:39 81 MG Atorvastatin Calcium (Lipitor Tab) 20 mg QPM PO 02/27/18 21:00 03/29/18 20:59 02/28/18 20:13 20 MG Bupropion HCl (Wellbutrin-Sr Tab) 100 mg QAM PO 02/28/18 09:00 03/30/18 08:59 03/01/18 08:39 100 MG Bupropion HCl (Wellbutrin-Sr Tab) 200 mg HS PO 02/27/18 21:00 03/29/18 20:59 02/28/18 20:19 200 MG Folic Acid (Folvite Tab) 1 mg DAILY PO 02/28/18 09:00 03/30/18 08:59 03/01/18 08:39 1 MG Insulin Human Lispro (HumaLOG INSULIN PUMP) 1 ea ACHS N/A 02/27/18 21:00 03/29/18 20:59 02/28/18 20:22 1 EA Isosorbide Mononitrate (Imdur Ext Rel Tab) 60 mg DAILY PO 02/28/18 09:00 03/30/18 08:59 03/01/18 08:39 60 MG Metoprolol Tartrate (Lopressor Tab) 12.5 mg BID PO 02/27/18 21:00 03/29/18 20:59 03/01/18 09:17 12.5 MG Montelukast Sodium (Singulair Tab) 10 mg HS PO 02/27/18 21:00 03/29/18 20:59 02/28/18 20:18 10 MG Pantoprazole Sodium (Protonix Tab) 40 mg DAILY PO 02/28/18 09:00 03/30/18 08:59 03/01/18 08:39 40 MG Topiramate (Topamax Tab) 100 mg QAM PO 02/28/18 09:00 03/30/18 08:59 03/01/18 08:39 100 MG Topiramate (Topamax Tab) 200 mg HS PO 02/27/18 21:00 03/29/18 20:59 02/28/18 20:19 200 MG Insulin Human Lispro (humaLOG) SLIDING SCALE PRN PRN SC 02/27/18 20:00 03/29/18 19:59 Glucose (Glucose 40% Gel) 15-30 GRAMS 15 GRAMS... UD PRN PO 02/27/18 20:00 03/29/18 19:59 Glucose (Glucose Chew Tab) 4-8 Tablets 4 Tabl... UD PRN PO 02/27/18 20:00 03/29/18 19:59 Dextrose (Dextrose 50% 50ML Syringe) 25-50ML OF 50% DW IV FOR... UD PRN IV 02/27/18 20:00 03/29/18 19:59 Glucagon (Glucagon Inj) 1 mg UD PRN SQ 02/27/18 20:00 03/29/18 19:59 Albuterol/ Ipratropium (Duoneb) 3 ml Q4R PRN INH 02/27/18 23:30 03/29/18 23:29 03/01/18 07:18 3 ML Levothyroxine Sodium (Synthroid Tab) 200 mcg DAILYBB PO 02/28/18 06:00 03/30/18 05:59 03/01/18 06:13 200 MCG Enoxaparin Sodium (Lovenox Inj) 40 mg QAM SQ 02/28/18 09:00 03/30/18 08:59 03/01/18 08:40 40 MG Furosemide 40 mg/ Syringe 4 ml @ 4 mls/min Q8 IV 02/28/18 14:00 03/30/18 13:59 03/01/18 06:13 4 MLS/MIN Tramadol HCl (Ultram Tab) 50 mg BID PRN PO 02/28/18 22:00 03/30/18 21:59 02/28/18 22:15 50 MG Acetaminophen (Tylenol Tab) 650 mg Q6H PRN PO 02/28/18 22:00 03/30/18 21:59 02/28/18 22:17 650 MG Last 24 Hours Test 02/28/18 11:10 02/28/18 16:30 02/28/18 20:16 03/01/18 06:41 Bedside Glucose 150 mg/dl 99 mg/dl 113 mg/dl Sodium Level 140 mmol/L Potassium Level 3.9 mmol/L Chloride Level 105 mmol/L Carbon Dioxide Level 28 mmol/L Anion Gap 7.0 mmol/L Blood Urea Nitrogen 17 mg/dl Creatinine 1.46 mg/dl Est Creatinine Clear Calc Drug Dose 64.9 ml/min Estimated GFR () 44.6 Estimated GFR (Non- 38.4 BUN/Creatinine Ratio 11.6 Random Glucose 140 mg/dl Estimated Average Glucose 169 mg/dl Hemoglobin A1c 7.5 % Calcium Level 8.7 mg/dl Magnesium Level 2.2 mg/dl Test 03/01/18 06:43 Bedside Glucose 147 mg/dl Assessment & Plan liane on ckd stage 4-[id number]-likely from the appropriate diuresis. continue diuretics and greatly appreciate cardiology help. holding on adding albumin. could add metolazone and or increase lasix dose as tolerated. although likely will be a prolonged slow diuresis.
[2018-03-01] MEDS ORDERED: POTASSIUM CHLORIDE 20 MEQ TABCR PO STA (11:38)
--- NOTE | 2018-03-01 11:42 | Cardiology Follow-Up ---
Subjective General Date of Service: Mar 01, 2018. Pt evaluation today including: conversation w/ patient, physical exam, chart review, lab review, review of studies, review of inpatient medication list History of Present Illness Patient upset that we "dried out her trach" and has difficulty clearing secretions. Feels she is still "full of fluid". Ongoing SOB noted. Ongoing LE edema noted. Questionable inaccurate weights. Needs standing scale. Allergies Coded Allergies: Amitriptyline (Verified Allergy, Unknown, `, 01/15/18) Gabapentin (Verified Allergy, Unknown, `, 01/15/18) Metformin (Verified Allergy, Unknown, `, 01/15/18) Penicillins (Verified Allergy, Unknown, `, 01/15/18) Pseudoephedrine (Verified Allergy, Unknown, `, 01/15/18) Tetracycline (Verified Allergy, Unknown, `, 01/15/18) Social History Smoking Status: Never Smoker Hx Tobacco Use In Past Year?: No Hx Alcohol Use - Type And Amou: No Hx Substance Use - Type And Am: No Problem List Medical Problems: (1) COPD exacerbation Status: Acute (2) Fluid overload Status: Acute (3) Hypoxia Status: Acute (4) Left leg cellulitis Status: Acute (5) Obesity Status: Acute (6) Respiratory distress Status: Acute (7) Rib pain on right side Status: Acute (8) Shortness of breath Status: Acute (9) SOB (shortness of breath) Status: Acute (10) Tracheostomy present Status: Acute Review of Systems Respiratory: + cough, + shortness of breath, + dyspnea on exertion Cardiac: + edema, No chest pain, No orthopnea, No PND Physical Exam Vital Signs Last Vital Signs Documentation Date Time Temp Pulse Resp B/P (MAP) Pulse Ox O2 Delivery O2 Flow Rate FiO2 03/01/18 08:22 36.7 86 20 132/78 (96) 95 Trach Collar 03/01/18 08:01 6.0 28 Physical Exam Constitutional: General Apperance: obese Level of Distress: NAD, chronically ill Psychiatric: Mental Status: active & alert Orientation: to time, to place, to person Head: normocephalic Neck: supple Lungs: Auscultation: deminished air movement, decreased breath sounds Cardiovascular: Heart Auscultation: RRR, no murmurs Extremities: edema (2-3+ hard indurated edema b/l) Assessment and Plan Assessment and Plan IMPRESSION: 62 year old female 1. Acute on chronic right sided heart failure with underlying hypoventilation syndrome/obesity/COPD 2. S/P tracheostomy in 2007 3. CKD - at baseline 4. Hypertension - controlled 5. Morbid obesity PLAN: Patient wishes to reduce diuretics due to inability to clera secretions. Furosemide 40 mg IV BID today. Added low dose potassium. Standing Scale to be used for accuracy in weights Monitor electrolyses/renal function 1500 ml fluid restriction Low sodium diet. Monitor I+O's Continue all other medications including ASA, statin, beta nicolle, isosorbide. Will follow. Case to be discussed with Dr. [place]. CARDIOLOGY ATTENDING ADDENDUM: The patient was seen and personally examined. Agree with Nataliya Kennedy PA-C's findings and plans as documented above. Most important is diuretics and fluid management for this patient. I agree with the plan as outlined above. Laboratory Results Last 24 Hours Test 02/28/18 16:30 02/28/18 20:16 03/01/18 03:10 03/01/18 06:41 Bedside Glucose 99 mg/dl 113 mg/dl 100 mg/dl Sodium Level 140 mmol/L Potassium Level 3.9 mmol/L Chloride Level 105 mmol/L Carbon Dioxide Level 28 mmol/L Anion Gap 7.0 mmol/L Blood Urea Nitrogen 17 mg/dl Creatinine 1.46 mg/dl Est Creatinine Clear Calc Drug Dose 64.9 ml/min Estimated GFR () 44.6 Estimated GFR (Non- 38.4 BUN/Creatinine Ratio 11.6 Random Glucose 140 mg/dl Estimated Average Glucose 169 mg/dl Hemoglobin A1c 7.5 % Calcium Level 8.7 mg/dl Magnesium Level 2.2 mg/dl Test 03/01/18 06:43 Bedside Glucose 147 mg/dl
[2018-03-01] MEDS: SODIUM CHLORIDE 7% 4 ML NEB INH PRN ×2 (15:00→18:55)
--- NOTE | 2018-03-01 20:27 | Progress Note ---
Medicine Progress Note Date & Time of Visit: Mar 01, 2018 at 14:25 . Subjective Patient concerned about thick tracheal secretions which she attributes to diuretic therapy. No fever. Occasional nonproductive cough. Feels dyspneic due to thick secretions. Episode of chest discomfort last night that lasted for about 5 minutes. Patient describes anterior chest wall cramping. EKG was not performed and the pain resolved spontaneously. No nausea or vomiting. Successful bowel movement after receiving laxatives. Still has Payne catheter. . Objective Last 8 Hrs Date Time Temp Pulse Resp B/P (MAP) Pulse Ox O2 Delivery O2 Flow Rate FiO2 03/01/18 19:12 37.0 88 24 115/74 (88) 94 Trach Collar 03/01/18 18:58 83 18 98 Trach Collar 8.0 28 03/01/18 16:00 97 Room Air 03/01/18 15:43 36.9 76 22 120/81 (94) 97 Trach Collar 03/01/18 15:01 82 18 99 Trach Collar 8.0 30 03/01/18 12:22 36.8 88 20 134/75 (94) 97 Trach Collar Physical Exam: General- sitting in chair, no distress Neck- tracheostomy Lungs- mild wheezing, few scattered rhonchi; no respiratory distress Cardiovascular- RRR; I/ systolic murmur LSB; no gallop appreciated; difficult to assess neck pain; 3-4+ pretibial edema Abdomen- obese, + bowel sounds, soft, nontender Extremities- no cyanosis; no calf tenderness Neuro- alert, oriented Skin- warm & dry . Laboratory Results: Last 24 Hours Test 03/01/18 03:10 03/01/18 06:41 03/01/18 06:43 03/01/18 11:30 Bedside Glucose 100 mg/dl 147 mg/dl 147 mg/dl Sodium Level 140 mmol/L Potassium Level 3.9 mmol/L Chloride Level 105 mmol/L Carbon Dioxide Level 28 mmol/L Anion Gap 7.0 mmol/L Blood Urea Nitrogen 17 mg/dl Creatinine 1.46 mg/dl Est Creatinine Clear Calc Drug Dose 64.9 ml/min Estimated GFR () 44.6 Estimated GFR (Non- 38.4 BUN/Creatinine Ratio 11.6 Random Glucose 140 mg/dl Estimated Average Glucose 169 mg/dl Hemoglobin A1c 7.5 % Calcium Level 8.7 mg/dl Magnesium Level 2.2 mg/dl Test 03/01/18 16:15 Bedside Glucose 154 mg/dl Assessment & Plan CHF Chest x-ray demonstrated cardiomegaly and pulmonary vascular congestion. Echo Dec 2017 demonstrated normal LV systolic function, LV diastolic dysfunction , decreased RV systolic function. Acute on chronic left ventricular diastolic heart failure + acute on chronic right ventricular systolic heart failure. Cardiology consulted. Continue IV diuretics; dosing change from TID to B due to patient's concerns about thick secretions.ID CAD Serum troponin in ED normal. Continue aspirin, metoprolol, nitrates, statin. HYPERTENSION Continue metoprolol and nitrates. SLEEP APNEA / OBESITY HYPOVENTILATION SYNDROME S/P tracheostomy. Continue supplemental oxygen. PULMONARY SECRETIONS Patient experiencing thick pulmonary secretions which she attributes to diuretic therapy. Patient has tried guaifenesin in the past without benefit. Try saline nebulizer treatments PRN. CKD III Serum creatinine today = 1.46. Follow. DM TYPE 2 Fairly well controlled. Hemoglobin A1c 8.5 on 01/15/18 and 7.5 on 03/01/18. Pharmacy consulted for glycemic management. Fasting blood sugar this morning 147. Continue insulin pump. MORBID OBESITY Weight 189 kg. BMI of 76. AHA / diabetic diet. POSSIBLE UTI (present on admission) Urinalysis on admission demonstrated nitrites, leukocyte esterase, greater than 30 WBCs, 2+ bacteria. Urine culture growing E. coli, resistant to ampicillin, cefazolin, ciprofloxacin , levofloxacin, TMP/sulfa. Patient has noted some chills and possible dysuria. Reported penicillin allergy, but has received cephalosporins recently without difficulty. Rx with ceftriaxone. VTE PROPHYLAXIS SQ enoxaparin. Ambulate as able. DISPOSITION To be determined. Family Medicine follow-up with Dr. Leos. Cardiology follow-up with [facility]. . Current Inpatient Medications: Current Inpatient Medications Medications (Trade) Dose Ordered Sig/Fatoumata Route Start Time Stop Time Status Last Admin Dose Admin Miscellaneous Information (Consult Glycemic Management Pharmacy) 1 ea UD N/A 02/27/18 18:45 03/29/18 18:44 Aspirin (Ecotrin Tab) 81 mg DAILY PO 02/28/18 09:00 03/30/18 08:59 03/01/18 08:39 81 MG Atorvastatin Calcium (Lipitor Tab) 20 mg QPM PO 02/27/18 21:00 03/29/18 20:59 02/28/18 20:13 20 MG Bupropion HCl (Wellbutrin-Sr Tab) 100 mg QAM PO 02/28/18 09:00 03/30/18 08:59 03/01/18 08:39 100 MG Bupropion HCl (Wellbutrin-Sr Tab) 200 mg HS PO 02/27/18 21:00 03/29/18 20:59 02/28/18 20:19 200 MG Folic Acid (Folvite Tab) 1 mg DAILY PO 02/28/18 09:00 03/30/18 08:59 03/01/18 08:39 1 MG Insulin Human Lispro (HumaLOG INSULIN PUMP) 1 ea ACHS N/A 02/27/18 21:00 03/29/18 20:59 03/01/18 17:07 1 EA Isosorbide Mononitrate (Imdur Ext Rel Tab) 60 mg DAILY PO 02/28/18 09:00 03/30/18 08:59 03/01/18 08:39 60 MG Metoprolol Tartrate (Lopressor Tab) 12.5 mg BID PO 02/27/18 21:00 03/29/18 20:59 03/01/18 09:17 12.5 MG Montelukast Sodium (Singulair Tab) 10 mg HS PO 02/27/18 21:00 03/29/18 20:59 02/28/18 20:18 10 MG Pantoprazole Sodium (Protonix Tab) 40 mg DAILY PO 02/28/18 09:00 03/30/18 08:59 03/01/18 08:39 40 MG Topiramate (Topamax Tab) 100 mg QAM PO 02/28/18 09:00 03/30/18 08:59 03/01/18 08:39 100 MG Topiramate (Topamax Tab) 200 mg HS PO 02/27/18 21:00 03/29/18 20:59 02/28/18 20:19 200 MG Insulin Human Lispro (humaLOG) SLIDING SCALE PRN PRN SC 02/27/18 20:00 03/29/18 19:59 Glucose (Glucose 40% Gel) 15-30 GRAMS 15 GRAMS... UD PRN PO 02/27/18 20:00 03/29/18 19:59 Glucose (Glucose Chew Tab) 4-8 Tablets 4 Tabl... UD PRN PO 02/27/18 20:00 03/29/18 19:59 Dextrose (Dextrose 50% 50ML Syringe) 25-50ML OF 50% DW IV FOR... UD PRN IV 02/27/18 20:00 03/29/18 19:59 Glucagon (Glucagon Inj) 1 mg UD PRN SQ 02/27/18 20:00 03/29/18 19:59 Albuterol/ Ipratropium (Duoneb) 3 ml Q4R PRN INH 02/27/18 23:30 03/29/18 23:29 03/01/18 18:55 3 ML Levothyroxine Sodium (Synthroid Tab) 200 mcg DAILYBB PO 02/28/18 06:00 03/30/18 05:59 03/01/18 06:13 200 MCG Enoxaparin Sodium (Lovenox Inj) 40 mg QAM SQ 02/28/18 09:00 03/30/18 08:59 03/01/18 08:40 40 MG Tramadol HCl (Ultram Tab) 50 mg BID PRN PO 02/28/18 22:00 03/30/18 21:59 02/28/18 22:15 50 MG Acetaminophen (Tylenol Tab) 650 mg Q6H PRN PO 02/28/18 22:00 03/30/18 21:59 02/28/18 22:17 650 MG Potassium Chloride (Klor-Con Tab) 20 meq QAM PO 03/02/18 09:00 04/01/18 08:59 Furosemide 40 mg/ Syringe 4 ml @ 4 mls/min BID IV 03/01/18 16:00 03/30/18 13:59 03/01/18 16:22 4 MLS/MIN Sodium Chloride (Sodium Chloride 7% Neb Solution) 4 ml Q4H PRN INH 03/01/18 14:45 03/31/18 14:44 03/01/18 18:55 4 ML
[2018-03-01] MEDS: MONTELUKAST SOD 10 MG TAB PO SCH (21:05)
[2018-03-01] MEDS: ATORVASTATIN 20 MG TAB PO SCH (21:06)
[2018-03-01] MEDS: CEFTRIAXONE SOD INJ 2,000 MG in DEXTROSE 5% 50ML 50 ML IV SCH (21:08)
[2018-03-02] VITALS (17 sets, daily range): BP systolic 111–159; BP diastolic 49–91; PULSE 68–88; TEMP 36.5–36.9; O2SAT 93–100
[2018-03-02] MEDS: ONDANSETRON INJ 2 MG/ML 2 ML VIAL IV PRN (00:21)
[2018-03-02] MEDS: ALBUT/IPRATROP 3MG/0.5MG NEB 3 ML VIAL INH PRN ×6 (01:31→23:18)
[2018-03-02] MEDS: LEVOTHYROXINE 200 MCG TAB PO SCH (05:53)
[2018-03-02] MEDS: SODIUM CHLORIDE 7% 4 ML NEB INH PRN ×3 (06:57→14:45)
[2018-03-02 07:36] LABS: CREATININE 1.41 mg/dl (0.60-1.20)
[2018-03-02] MEDS: ISOSORBIDE MONONITRATE 60 MG TABCR PO SCH (08:04)
[2018-03-02] MEDS: FUROSEMIDE INJ 40 MG in SYRINGE 0 ML IV SCH ×2 (08:04→20:22)
[2018-03-02] MEDS: ASPIRIN 81 MG ECTAB PO SCH (08:04)
[2018-03-02] MEDS: TOPIRAMATE 100 MG TAB PO SCH ×2 (08:04→20:23)
[2018-03-02] MEDS: METOPROLOL TARTRATE 25 MG TAB PO SCH ×2 (08:05→20:24)
[2018-03-02] MEDS: POTASSIUM CHLORIDE 20 MEQ TABCR PO SCH (08:05)
[2018-03-02] MEDS: PANTOprazole SOD 40 MG TAB PO SCH (08:05)
[2018-03-02] MEDS: BuPROPion SR 100 MG TABCR PO SCH ×2 (08:05→20:22)
[2018-03-02] MEDS: ENOXAPARIN 40 MG/0.4 ML SYR SQ SCH (08:06)
--- NOTE | 2018-03-02 10:02 | Pharmacy Progress Note ---
Pharmacy Glycemic Short Note 2 Date of Service Mar 02, 2018. OUTPATIENT ANTIDIABETIC REGIMEN: * Medtronic Paradigm Revel 723 Insulin Pump (Serial Number: [id number]) * Infusion Set: Sure-T * Insulin: Humalog * Basal Rate: 0:00 5.00 u/hr * 7:00 5.50 u/hr * Bolus wizard: on and using * ICR: 1:2 * ISF: 1:15 * Blood Glucose Goals: 110 to 130 * Active Insulin Time: 3 hours Test 03/01/18 11:30 03/01/18 16:15 03/01/18 20:13 03/02/18 06:49 Bedside Glucose 147 mg/dl (70-90) 154 mg/dl (70-90) 94 mg/dl (70-90) Random Glucose 115 mg/dl (70-99) Test 03/02/18 07:07 Bedside Glucose 109 mg/dl (70-90) ASSESSMENT: * Patient remains on insulin pump and managing herself * BSGs acceptable * No change to causes of insulin resistance PLAN FOR INPATIENT GLYCEMIC CONTROL: * Continue insulin pump PLAN FOR DISCHARGE: * Continue insulin pump and f/u with outpatient provider/endo * Per CDE note, patient reports outpatient hypoglycemia has resolved
--- NOTE | 2018-03-02 10:51 | Cardiology Follow-Up ---
Subjective General Date of Service: Mar 02, 2018. Chief Complaint: SOB; CHF Pt evaluation today including: conversation w/ patient, physical exam, chart review, lab review, review of studies, review of inpatient medication list History of Present Illness Patient feeling a little better. Reports not at baseline. Legs still feel tight , but improved. Secretions improved with administration of saline. No chest pain. No dizziness. Slept ok Allergies Coded Allergies: Amitriptyline (Verified Allergy, Unknown, `, 01/15/18) Gabapentin (Verified Allergy, Unknown, `, 01/15/18) Metformin (Verified Allergy, Unknown, `, 01/15/18) Penicillins (Verified Allergy, Unknown, `, 01/15/18) Pseudoephedrine (Verified Allergy, Unknown, `, 01/15/18) Tetracycline (Verified Allergy, Unknown, `, 01/15/18) Social History Smoking Status: Never Smoker Hx Tobacco Use In Past Year?: No Hx Alcohol Use - Type And Amou: No Hx Substance Use - Type And Am: No Problem List Medical Problems: (1) COPD exacerbation Status: Acute (2) Fluid overload Status: Acute (3) Hypoxia Status: Acute (4) Left leg cellulitis Status: Acute (5) Obesity Status: Acute (6) Respiratory distress Status: Acute (7) Rib pain on right side Status: Acute (8) Shortness of breath Status: Acute (9) SOB (shortness of breath) Status: Acute (10) Tracheostomy present Status: Acute Review of Systems Respiratory: + cough, + shortness of breath, + dyspnea on exertion, No wheezing , No hemoptysis Cardiac: + edema, No chest pain, No orthopnea, No PND, No palpitations Physical Exam Vital Signs Last Vital Signs Documentation Date Time Temp Pulse Resp B/P (MAP) Pulse Ox O2 Delivery O2 Flow Rate FiO2 03/02/18 08:39 96 Trach Collar 6.0 28 03/02/18 08:23 36.7 80 20 126/91 (103) Physical Exam Constitutional: General Apperance: obese Level of Distress: NAD, chronically ill Psychiatric: Mental Status: active & alert Orientation: to time, to place, to person Head: normocephalic Neck: supple Lungs: Auscultation: deminished air movement, decreased breath sounds Cardiovascular: Heart Auscultation: RRR, no murmurs Extremities: edema (2-3+ hard indurated edema b/l) Assessment and Plan Assessment and Plan IMPRESSION: 62 year old female 1. Acute on chronic right sided heart failure with underlying hypoventilation syndrome/obesity/COPD 2. S/P tracheostomy in 2007 3. CKD - at baseline 4. Hypertension - controlled 5. Morbid obesity PLAN: Tolerating furosemide 40 mg IV BID with potassium. Diuresing and slowly improving. Secretions improving with administration of saline. Standing Scale to be used for accuracy in weights Monitor electrolyses/renal function 1500 ml fluid restriction Low sodium diet. Monitor I+O's Continue all other medications including ASA, statin, beta nicolle, isosorbide. Will follow. Case to be discussed with Dr. [place]. CARDIOLOGY ATTENDING ADDENDUM: The patient was seen and personally examined. Agree with Nataliya Kennedy PA-C's findings and plans as documented above. Laboratory Results Last 24 Hours Test 03/01/18 11:30 03/01/18 16:15 03/01/18 20:13 03/02/18 06:49 Bedside Glucose 147 mg/dl 154 mg/dl 94 mg/dl Sodium Level 138 mmol/L Potassium Level 4.0 mmol/L Chloride Level 105 mmol/L Carbon Dioxide Level 28 mmol/L Anion Gap 5.0 mmol/L Blood Urea Nitrogen 21 mg/dl Creatinine 1.41 mg/dl Est Creatinine Clear Calc Drug Dose 68.0 ml/min Estimated GFR () 46.5 Estimated GFR (Non- 40.1 BUN/Creatinine Ratio 15.0 Random Glucose 115 mg/dl Calcium Level 9.0 mg/dl Test 03/02/18 07:07 Bedside Glucose 109 mg/dl
[2018-03-02] MEDS ORDERED: BISACODYL 5 MG TABEC ONE (16:23)
[2018-03-02] MEDS ORDERED: BISACODYL 5 MG TABEC PO ONE (18:00)
--- NOTE | 2018-03-02 20:09 | Progress Note ---
Medicine Progress Note Date & Time of Visit: Mar 02, 2018 at 15:30 . Subjective Somewhat better today. Trach secretions improved with saline nebs. Occasional cough. Dyspnea stable. No chest pain. Nausea earlier today, improved after receiving ondansetron. No bowel movement since yesterday. Still has Payne catheter for measuring urine outputs. . Objective Last 8 Hrs Date Time Temp Pulse Resp B/P (MAP) Pulse Ox O2 Delivery O2 Flow Rate FiO2 03/02/18 19:34 68 20 97 Trach Collar 28 03/02/18 16:20 36.5 76 20 137/83 (101) 96 Trach Collar 8.0 03/02/18 16:00 95 Trach Collar 6.0 28 03/02/18 14:48 76 18 95 Trach Collar 28 Physical Exam: General- sitting in chair, no distress Neck- tracheostomy Lungs- mild wheezing, few scattered rhonchi; no respiratory distress Cardiovascular- RRR; I/ systolic murmur LSB; no gallop appreciated; difficult to assess neck pain; 3-4+ pretibial edema Abdomen- obese, + bowel sounds, soft, nontender Extremities- no cyanosis; no calf tenderness Neuro- alert, oriented Skin- warm & dry . Laboratory Results: Last 24 Hours Test 03/01/18 20:13 03/02/18 06:49 03/02/18 07:07 03/02/18 11:13 Bedside Glucose 94 mg/dl 109 mg/dl 179 mg/dl Sodium Level 138 mmol/L Potassium Level 4.0 mmol/L Chloride Level 105 mmol/L Carbon Dioxide Level 28 mmol/L Anion Gap 5.0 mmol/L Blood Urea Nitrogen 21 mg/dl Creatinine 1.41 mg/dl Est Creatinine Clear Calc Drug Dose 68.0 ml/min Estimated GFR () 46.5 Estimated GFR (Non- 40.1 BUN/Creatinine Ratio 15.0 Random Glucose 115 mg/dl Calcium Level 9.0 mg/dl Test 03/02/18 16:23 Bedside Glucose 140 mg/dl Assessment & Plan CHF Chest x-ray demonstrated cardiomegaly and pulmonary vascular congestion. Echo Dec 2017 demonstrated normal LV systolic function, LV diastolic dysfunction , decreased RV systolic function. Acute on chronic left ventricular diastolic heart failure + acute on chronic right ventricular systolic heart failure. Cardiology consulted. Continue IV diuretics; dosing change from TID to BID we will due to patient's concerns about thick secretions.ID CAD Serum troponin in ED normal. Continue aspirin, metoprolol, nitrates, statin. HYPERTENSION Continue metoprolol and nitrates. SLEEP APNEA / OBESITY HYPOVENTILATION SYNDROME S/P tracheostomy. Continue supplemental oxygen. PULMONARY SECRETIONS Patient experiencing thick pulmonary secretions which she attributes to diuretic therapy. Patient has tried guaifenesin in the past without benefit. Improved with saline nebs. CKD III Serum creatinine today = 1.41. Follow. DM TYPE 2 Fairly well controlled. Hemoglobin A1c 8.5 on 01/15/18 and 7.5 on 03/01/18. Pharmacy consulted for glycemic management. Fasting blood sugar this morning 109. Continue insulin pump. MORBID OBESITY Weight 189 kg. BMI of 76. AHA / diabetic diet. POSSIBLE UTI (present on admission) Urinalysis on admission demonstrated nitrites, leukocyte esterase, greater than 30 WBCs, 2+ bacteria. Urine culture growing E. coli, resistant to ampicillin, cefazolin, ciprofloxacin , levofloxacin, TMP/sulfa. Patient has noted some chills and possible dysuria. Reported penicillin allergy, but has received cephalosporins recently without difficulty. Rx with ceftriaxone. VTE PROPHYLAXIS SQ enoxaparin. Ambulate as able. DISPOSITION To be determined. Family Medicine follow-up with Dr. Leos. Cardiology follow-up with [facility]. . Current Inpatient Medications: Current Inpatient Medications Medications (Trade) Dose Ordered Sig/Fatoumata Route Start Time Stop Time Status Last Admin Dose Admin Miscellaneous Information (Consult Glycemic Management Pharmacy) 1 ea UD N/A 02/27/18 18:45 03/29/18 18:44 Aspirin (Ecotrin Tab) 81 mg DAILY PO 02/28/18 09:00 03/30/18 08:59 03/02/18 08:04 81 MG Atorvastatin Calcium (Lipitor Tab) 20 mg QPM PO 02/27/18 21:00 03/29/18 20:59 03/01/18 21:06 20 MG Bupropion HCl (Wellbutrin-Sr Tab) 100 mg QAM PO 02/28/18 09:00 03/30/18 08:59 03/02/18 08:05 100 MG Bupropion HCl (Wellbutrin-Sr Tab) 200 mg HS PO 02/27/18 21:00 03/29/18 20:59 03/01/18 21:04 200 MG Folic Acid (Folvite Tab) 1 mg DAILY PO 02/28/18 09:00 03/30/18 08:59 03/02/18 08:05 1 MG Insulin Human Lispro (HumaLOG INSULIN PUMP) 1 ea ACHS N/A 02/27/18 21:00 03/29/18 20:59 03/02/18 16:15 1 EA Isosorbide Mononitrate (Imdur Ext Rel Tab) 60 mg DAILY PO 02/28/18 09:00 03/30/18 08:59 03/02/18 08:04 60 MG Metoprolol Tartrate (Lopressor Tab) 12.5 mg BID PO 02/27/18 21:00 03/29/18 20:59 03/02/18 08:05 12.5 MG Montelukast Sodium (Singulair Tab) 10 mg HS PO 02/27/18 21:00 03/29/18 20:59 03/01/18 21:05 10 MG Pantoprazole Sodium (Protonix Tab) 40 mg DAILY PO 02/28/18 09:00 03/30/18 08:59 03/02/18 08:05 40 MG Topiramate (Topamax Tab) 100 mg QAM PO 02/28/18 09:00 03/30/18 08:59 03/02/18 08:04 100 MG Topiramate (Topamax Tab) 200 mg HS PO 02/27/18 21:00 03/29/18 20:59 03/01/18 21:04 200 MG Insulin Human Lispro (humaLOG) SLIDING SCALE PRN PRN SC 02/27/18 20:00 03/29/18 19:59 Glucose (Glucose 40% Gel) 15-30 GRAMS 15 GRAMS... UD PRN PO 02/27/18 20:00 03/29/18 19:59 Glucose (Glucose Chew Tab) 4-8 Tablets 4 Tabl... UD PRN PO 02/27/18 20:00 03/29/18 19:59 Dextrose (Dextrose 50% 50ML Syringe) 25-50ML OF 50% DW IV FOR... UD PRN IV 02/27/18 20:00 03/29/18 19:59 Glucagon (Glucagon Inj) 1 mg UD PRN SQ 02/27/18 20:00 03/29/18 19:59 Albuterol/ Ipratropium (Duoneb) 3 ml Q4R PRN INH 02/27/18 23:30 03/29/18 23:29 03/02/18 19:29 3 ML Levothyroxine Sodium (Synthroid Tab) 200 mcg DAILYBB PO 02/28/18 06:00 03/30/18 05:59 03/02/18 05:53 200 MCG Enoxaparin Sodium (Lovenox Inj) 40 mg QAM SQ 02/28/18 09:00 03/30/18 08:59 03/02/18 08:06 40 MG Tramadol HCl (Ultram Tab) 50 mg BID PRN PO 02/28/18 22:00 03/30/18 21:59 02/28/18 22:15 50 MG Acetaminophen (Tylenol Tab) 650 mg Q6H PRN PO 02/28/18 22:00 03/30/18 21:59 02/28/18 22:17 650 MG Potassium Chloride (Klor-Con Tab) 20 meq QAM PO 03/02/18 09:00 04/01/18 08:59 03/02/18 08:05 20 MEQ Furosemide 40 mg/ Syringe 4 ml @ 4 mls/min BID IV 03/01/18 16:00 03/30/18 13:59 03/02/18 08:04 4 MLS/MIN Sodium Chloride (Sodium Chloride 7% Neb Solution) 4 ml Q4H PRN INH 03/01/18 14:45 03/31/18 14:44 03/02/18 14:45 4 ML Ceftriaxone Sodium 2000 mg/ Dextrose 70 ml @ 100 mls/hr DAILY@2100 IV 03/01/18 21:00 03/11/18 20:59 03/01/18 21:08 100 MLS/HR Ondansetron HCl (Zofran Inj) 4 mg Q6H PRN IV 03/02/18 00:15 04/01/18 00:14 03/02/18 00:21 4 MG
[2018-03-02] MEDS: MONTELUKAST SOD 10 MG TAB PO SCH (20:23)
[2018-03-02] MEDS: ATORVASTATIN 20 MG TAB PO SCH (20:24)
[2018-03-02] MEDS: CEFTRIAXONE SOD INJ 2,000 MG in DEXTROSE 5% 50ML 50 ML IV SCH (20:33)
[2018-03-03] VITALS (16 sets, daily range): BP systolic 96–144; BP diastolic 58–84; PULSE 70–92; TEMP 36.4–37.5; O2SAT 93–100
[2018-03-03] MEDS: ALBUT/IPRATROP 3MG/0.5MG NEB 3 ML VIAL INH PRN ×5 (04:14→19:04)
[2018-03-03] MEDS: ONDANSETRON INJ 2 MG/ML 2 ML VIAL IV PRN (06:00)
[2018-03-03] MEDS: LEVOTHYROXINE 200 MCG TAB PO SCH (06:00)
[2018-03-03 06:58] LABS: CALCIUM 8.8 mg/dl (8.5-10.1); CREATININE 1.43 mg/dl (0.60-1.20)
[2018-03-03] MEDS: FUROSEMIDE INJ 40 MG in SYRINGE 0 ML IV SCH (08:20)
[2018-03-03] MEDS: TOPIRAMATE 100 MG TAB PO SCH ×2 (08:20→21:45)
[2018-03-03] MEDS: BuPROPion SR 100 MG TABCR PO SCH ×2 (08:20→21:44)
[2018-03-03] MEDS: FLUCONAZOLE 100 MG TAB PO SCH (08:20)
[2018-03-03] MEDS: POTASSIUM CHLORIDE 20 MEQ TABCR PO SCH (08:21)
[2018-03-03] MEDS: METOPROLOL TARTRATE 25 MG TAB PO SCH ×2 (08:21→21:41)
[2018-03-03] MEDS: ISOSORBIDE MONONITRATE 60 MG TABCR PO SCH (08:22)
[2018-03-03] MEDS: ASPIRIN 81 MG ECTAB PO SCH (08:22)
[2018-03-03] MEDS: PANTOprazole SOD 40 MG TAB PO SCH (08:22)
[2018-03-03] MEDS: ENOXAPARIN 40 MG/0.4 ML SYR SQ SCH (08:23)
--- NOTE | 2018-03-03 09:15 | Nephrology Progress Note ---
Nephrology Progress Note Date of Service: Mar 03, 2018. Subjective 62 yo female with ckd stage 3, right sided heart failure with trach and fluid overloaded. on iv diuretics. pt has been apprehensive about increasing the diuretics with concern of thickened secretions in her trach. pt though is aggressive with saline and her secretions have been ok for now. pt currently trying to have a bowel movement. Objective Date Time Temp Pulse Resp B/P (MAP) Pulse Ox O2 Delivery O2 Flow Rate FiO2 03/03/18 08:01 36.5 73 20 96/58 (71) 94 Trach Collar 03/03/18 07:16 70 16 97 Trach Collar 6.0 28 03/03/18 04:16 72 20 97 Trach Collar 6.0 28 03/03/18 04:10 36.7 75 24 144/84 (104) 95 Trach Collar 6.0 28 03/03/18 04:00 Trach Collar 6.0 28 03/03/18 00:00 Trach Collar 6.0 28 03/02/18 23:55 36.9 79 20 159/79 (105) 97 Trach Collar 6.0 28 03/02/18 23:21 79 20 98 Trach Collar 6.0 28 03/02/18 20:22 36.9 88 20 156/49 (84) 95 Trach Collar 8.0 03/02/18 20:00 95 Trach Collar 6.0 28 03/02/18 19:34 68 20 97 Trach Collar 28 03/02/18 16:20 36.5 76 20 137/83 (101) 96 Trach Collar 8.0 03/02/18 16:00 95 Trach Collar 6.0 28 03/02/18 14:48 76 18 95 Trach Collar 28 03/02/18 12:04 96 Trach Collar 6.0 28 03/02/18 11:54 36.8 79 22 111/62 (78) 100 T-piece 03/02/18 11:05 78 18 96 Trach Collar 28 Physical Exam: General-aaox3, morbid obesity Eyes-no scleral icterus ENT-mmm Neck-supple, +trach Lungs-decreased at bases Heart-regular Abdomen-+pannus, bs+, soft, nt Extremities-+2 non-pitting edema Neuro-nonfocal Current Inpatient Medications Medications (Trade) Dose Ordered Sig/Fatoumata Route Start Time Stop Time Status Last Admin Dose Admin Miscellaneous Information (Consult Glycemic Management Pharmacy) 1 ea UD N/A 02/27/18 18:45 03/29/18 18:44 Aspirin (Ecotrin Tab) 81 mg DAILY PO 02/28/18 09:00 03/30/18 08:59 03/03/18 08:22 81 MG Atorvastatin Calcium (Lipitor Tab) 20 mg QPM PO 02/27/18 21:00 03/29/18 20:59 03/02/18 20:24 20 MG Bupropion HCl (Wellbutrin-Sr Tab) 100 mg QAM PO 02/28/18 09:00 03/30/18 08:59 03/03/18 08:20 100 MG Bupropion HCl (Wellbutrin-Sr Tab) 200 mg HS PO 02/27/18 21:00 03/29/18 20:59 03/02/18 20:22 200 MG Folic Acid (Folvite Tab) 1 mg DAILY PO 02/28/18 09:00 03/30/18 08:59 03/03/18 08:22 1 MG Insulin Human Lispro (HumaLOG INSULIN PUMP) 1 ea ACHS N/A 02/27/18 21:00 03/29/18 20:59 03/02/18 21:05 1 EA Isosorbide Mononitrate (Imdur Ext Rel Tab) 60 mg DAILY PO 02/28/18 09:00 03/30/18 08:59 03/03/18 08:22 60 MG Metoprolol Tartrate (Lopressor Tab) 12.5 mg BID PO 02/27/18 21:00 03/29/18 20:59 03/03/18 08:21 12.5 MG Montelukast Sodium (Singulair Tab) 10 mg HS PO 02/27/18 21:00 03/29/18 20:59 03/02/18 20:23 10 MG Pantoprazole Sodium (Protonix Tab) 40 mg DAILY PO 02/28/18 09:00 03/30/18 08:59 03/03/18 08:22 40 MG Topiramate (Topamax Tab) 100 mg QAM PO 02/28/18 09:00 03/30/18 08:59 03/03/18 08:20 100 MG Topiramate (Topamax Tab) 200 mg HS PO 02/27/18 21:00 03/29/18 20:59 03/02/18 20:23 200 MG Insulin Human Lispro (humaLOG) SLIDING SCALE PRN PRN SC 02/27/18 20:00 03/29/18 19:59 03/03/18 04:06 200 UNITS Glucose (Glucose 40% Gel) 15-30 GRAMS 15 GRAMS... UD PRN PO 02/27/18 20:00 03/29/18 19:59 Glucose (Glucose Chew Tab) 4-8 Tablets 4 Tabl... UD PRN PO 02/27/18 20:00 03/29/18 19:59 Dextrose (Dextrose 50% 50ML Syringe) 25-50ML OF 50% DW IV FOR... UD PRN IV 02/27/18 20:00 03/29/18 19:59 Glucagon (Glucagon Inj) 1 mg UD PRN SQ 02/27/18 20:00 03/29/18 19:59 Albuterol/ Ipratropium (Duoneb) 3 ml Q4R PRN INH 02/27/18 23:30 03/29/18 23:29 03/03/18 07:15 3 ML Levothyroxine Sodium (Synthroid Tab) 200 mcg DAILYBB PO 02/28/18 06:00 03/30/18 05:59 03/03/18 06:00 200 MCG Enoxaparin Sodium (Lovenox Inj) 40 mg QAM SQ 02/28/18 09:00 03/30/18 08:59 03/03/18 08:23 40 MG Tramadol HCl (Ultram Tab) 50 mg BID PRN PO 02/28/18 22:00 03/30/18 21:59 02/28/18 22:15 50 MG Acetaminophen (Tylenol Tab) 650 mg Q6H PRN PO 02/28/18 22:00 03/30/18 21:59 02/28/18 22:17 650 MG Potassium Chloride (Klor-Con Tab) 20 meq QAM PO 03/02/18 09:00 04/01/18 08:59 03/03/18 08:21 20 MEQ Furosemide 40 mg/ Syringe 4 ml @ 4 mls/min BID IV 03/01/18 16:00 03/30/18 13:59 03/03/18 08:20 4 MLS/MIN Sodium Chloride (Sodium Chloride 7% Neb Solution) 4 ml Q4H PRN INH 03/01/18 14:45 03/31/18 14:44 03/02/18 14:45 4 ML Ceftriaxone Sodium 2000 mg/ Dextrose 70 ml @ 100 mls/hr DAILY@2100 IV 03/01/18 21:00 03/11/18 20:59 03/02/18 20:33 100 MLS/HR Ondansetron HCl (Zofran Inj) 4 mg Q6H PRN IV 03/02/18 00:15 04/01/18 00:14 03/03/18 06:00 4 MG Fluconazole (Diflucan Tab) 100 mg MoWeFr@0900 PO 03/03/18 09:00 03/13/18 08:59 03/03/18 08:20 100 MG Last 24 Hours Test 03/02/18 11:13 03/02/18 16:23 03/02/18 20:21 03/03/18 05:52 Bedside Glucose 179 mg/dl 140 mg/dl 109 mg/dl Sodium Level 140 mmol/L Potassium Level 4.0 mmol/L Chloride Level 106 mmol/L Carbon Dioxide Level 30 mmol/L Anion Gap 4.0 mmol/L Blood Urea Nitrogen 22 mg/dl Creatinine 1.43 mg/dl Est Creatinine Clear Calc Drug Dose 67.2 ml/min Estimated GFR () 45.7 Estimated GFR (Non- 39.4 BUN/Creatinine Ratio 15.5 Random Glucose 106 mg/dl Calcium Level 8.8 mg/dl Test 03/03/18 06:25 Bedside Glucose 113 mg/dl Assessment & Plan liane on ckd stage [id number] from the appropriate diuresis. pt is slowly diuresing. explained to her that we should increase the diuretics to help facilitate fluid removal and will keep aggressive saline in her trach to help with secretions. pt was agreeable.
--- NOTE | 2018-03-03 09:42 | Cardiology Follow-Up ---
Subjective General Date of Service: Mar 03, 2018. Chief Complaint: SOB; CHF Pt evaluation today including: conversation w/ patient, physical exam, chart review, lab review, review of studies, conversation w/ learning and development consultant, review of inpatient medication list History of Present Illness Patient feeling about the same. Ongoing dyspnea and LE edema noted. No chest pain. Per discussion wiht nephrology, she is agreeable to trying higher dose diuretics. Allergies Coded Allergies: Amitriptyline (Verified Allergy, Unknown, `, 01/15/18) Gabapentin (Verified Allergy, Unknown, `, 01/15/18) Metformin (Verified Allergy, Unknown, `, 01/15/18) Penicillins (Verified Allergy, Unknown, `, 01/15/18) Pseudoephedrine (Verified Allergy, Unknown, `, 01/15/18) Tetracycline (Verified Allergy, Unknown, `, 01/15/18) Social History Smoking Status: Never Smoker Hx Tobacco Use In Past Year?: No Hx Alcohol Use - Type And Amou: No Hx Substance Use - Type And Am: No Problem List Medical Problems: (1) COPD exacerbation Status: Acute (2) Fluid overload Status: Acute (3) Hypoxia Status: Acute (4) Left leg cellulitis Status: Acute (5) Obesity Status: Acute (6) Respiratory distress Status: Acute (7) Rib pain on right side Status: Acute (8) Shortness of breath Status: Acute (9) SOB (shortness of breath) Status: Acute (10) Tracheostomy present Status: Acute Review of Systems Respiratory: + cough, + dyspnea on exertion, No sputum, No wheezing, No hemoptysis Cardiac: + edema, No chest pain, No orthopnea, No PND, No palpitations Physical Exam Vital Signs Last Vital Signs Documentation Date Time Temp Pulse Resp B/P (MAP) Pulse Ox O2 Delivery O2 Flow Rate FiO2 03/03/18 08:01 36.5 73 20 96/58 (71) 94 Trach Collar 03/03/18 08:00 6.0 28 Physical Exam Constitutional: General Apperance: obese Level of Distress: NAD, chronically ill Psychiatric: Mental Status: active & alert Orientation: to time, to place, to person Head: normocephalic Neck: supple Lungs: Auscultation: deminished air movement, decreased breath sounds Cardiovascular: Heart Auscultation: RRR, no murmurs Extremities: edema (2-3+ indurated edema b/l) Assessment and Plan Assessment and Plan IMPRESSION: 62 year old female 1. Acute on chronic right sided heart failure with underlying hypoventilation syndrome/obesity/COPD 2. S/P tracheostomy in 2007 3. CKD - at baseline 4. Hypertension - controlled 5. Morbid obesity PLAN: Slow diuresis with current diuretics. Agree with increasing dose this AM. Patient was agreeable. Secretions improving with administration of saline. Standing Scale to be used for accuracy in weights Monitor electrolyses/renal function 1500 ml fluid restriction Low sodium diet. Monitor I+O's Continue all other medications including ASA, statin, beta nicolle, isosorbide. Case to be discussed with Dr. [place]. CARDIOLOGY ATTENDING ADDENDUM: The patient was seen and personally examined. Agree with Nataliya Kennedy PA-C's findings and plans as documented above. Laboratory Results Last 24 Hours Test 03/02/18 11:13 03/02/18 16:23 03/02/18 20:21 03/03/18 05:52 Bedside Glucose 179 mg/dl 140 mg/dl 109 mg/dl Sodium Level 140 mmol/L Potassium Level 4.0 mmol/L Chloride Level 106 mmol/L Carbon Dioxide Level 30 mmol/L Anion Gap 4.0 mmol/L Blood Urea Nitrogen 22 mg/dl Creatinine 1.43 mg/dl Est Creatinine Clear Calc Drug Dose 67.2 ml/min Estimated GFR () 45.7 Estimated GFR (Non- 39.4 BUN/Creatinine Ratio 15.5 Random Glucose 106 mg/dl Calcium Level 8.8 mg/dl Test 03/03/18 06:25 Bedside Glucose 113 mg/dl
[2018-03-03] MEDS ORDERED: FUROSEMIDE INJ 40 MG in SYRINGE 0 ML IV ONE (10:00)
[2018-03-03] MEDS: SODIUM CHLORIDE 7% 4 ML NEB INH PRN ×3 (11:29→19:05)
--- NOTE | 2018-03-03 11:30 | Pharmacy Progress Note ---
Pharmacy Glycemic Sign Off Nt Date of Service Mar 03, 2018. Assessment & Plan ASSESSMENT: * Pharmacy was consulted by Dr Lane on 02/27/18 for glycemic control and to write orders per [facility] inpatient glycemic control protocol. * Major changes made by pharmacy to antidiabetic regimen include: * None, Pt is managing own BSGs per insulin pump with outpatient settings * No adjustments needed by pharmacy to achieve this level of control PLAN FOR INPATIENT GLYCEMIC CONTROL: No changes needed to current regimen. * Pt to continue to manage own bsgs via insulin pump per outpatient settings. * Pharmacy is signing off of glycemic consult and will no longer be making adjustments to inpatient regimen. Please feel free to re-consult if needed. Thank you.
[2018-03-03] MEDS ORDERED: MAGNESIUM HYDROXIDE SUSP 30 ML UDC ONE (18:21)
--- NOTE | 2018-03-03 20:48 | Progress Note ---
Medicine Progress Note Date & Time of Visit: Mar 03, 2018 . Subjective No fever. No chest pain. Ongoing lower extremity edema. Respiratory status stable. No nausea or vomiting. No bowel movement for 2 days. Feels bloated. Payne catheter for urine outputs. . Objective Last 8 Hrs Date Time Temp Pulse Resp B/P (MAP) Pulse Ox O2 Delivery O2 Flow Rate FiO2 03/03/18 19:05 78 22 97 Trach Collar 6.0 28 03/03/18 16:23 36.8 77 20 117/66 (83) 97 Trach Collar 8.0 03/03/18 16:00 97 Trach Collar 6.0 28 03/03/18 15:19 78 16 97 Trach Collar 6.0 28 Physical Exam: General- sitting in chair, no distress Neck- tracheostomy Lungs-diffuse mild wheezing, few scattered rhonchi; no respiratory distress Cardiovascular- RRR; I/ systolic murmur LSB; no gallop appreciated; difficult to assess neck pain; 3+ pretibial edema Abdomen- obese, + bowel sounds, soft, nontender Extremities- no cyanosis; no calf tenderness Neuro- alert, oriented Skin- warm & dry . Laboratory Results: Last 24 Hours Test 03/03/18 05:52 03/03/18 06:25 03/03/18 11:24 03/03/18 16:26 Sodium Level 140 mmol/L Potassium Level 4.0 mmol/L Chloride Level 106 mmol/L Carbon Dioxide Level 30 mmol/L Anion Gap 4.0 mmol/L Blood Urea Nitrogen 22 mg/dl Creatinine 1.43 mg/dl Est Creatinine Clear Calc Drug Dose 67.2 ml/min Estimated GFR () 45.7 Estimated GFR (Non- 39.4 BUN/Creatinine Ratio 15.5 Random Glucose 106 mg/dl Calcium Level 8.8 mg/dl Bedside Glucose 113 mg/dl 151 mg/dl 111 mg/dl Assessment & Plan CHF Chest x-ray demonstrated cardiomegaly and pulmonary vascular congestion. Echo Dec 2017 demonstrated normal LV systolic function, LV diastolic dysfunction , decreased RV systolic function. Acute on chronic left ventricular diastolic heart failure + acute on chronic right ventricular systolic heart failure. Cardiology consulted. Continue IV diuretics. CAD Serum troponin in ED normal. Continue aspirin, metoprolol, nitrates, statin. HYPERTENSION Continue metoprolol and nitrates. SLEEP APNEA / OBESITY HYPOVENTILATION SYNDROME S/P tracheostomy. Continue supplemental oxygen. PULMONARY SECRETIONS Patient experiencing thick pulmonary secretions which she attributes to diuretic therapy. Patient has tried guaifenesin in the past without benefit. Improved with saline nebs. CKD III Serum creatinine today = 1.43. Follow. DM TYPE 2 Fairly well controlled. Hemoglobin A1c 8.5 on 01/15/18 and 7.5 on 03/01/18. Pharmacy consulted for glycemic management. Fasting blood sugar this morning 113. Continue insulin pump. MORBID OBESITY Weight 189 kg. BMI of 76. AHA / diabetic diet. POSSIBLE UTI (present on admission) Urinalysis on admission demonstrated nitrites, leukocyte esterase, greater than 30 WBCs, 2+ bacteria. Urine culture growing E. coli, resistant to ampicillin, cefazolin, ciprofloxacin , levofloxacin, TMP/sulfa. Patient has noted some chills and possible dysuria. Reported penicillin allergy, but has received cephalosporins recently without difficulty. Rx with ceftriaxone. CONSTIPATION Bowel regimen as ordered. VTE PROPHYLAXIS SQ enoxaparin. Ambulate as able. DISPOSITION To be determined. Family Medicine follow-up with Dr. Leos. Cardiology follow-up with [facility]. . Current Inpatient Medications: Current Inpatient Medications Medications (Trade) Dose Ordered Sig/Fatoumata Route Start Time Stop Time Status Last Admin Dose Admin Aspirin (Ecotrin Tab) 81 mg DAILY PO 02/28/18 09:00 03/30/18 08:59 03/03/18 08:22 81 MG Atorvastatin Calcium (Lipitor Tab) 20 mg QPM PO 02/27/18 21:00 03/29/18 20:59 03/02/18 20:24 20 MG Bupropion HCl (Wellbutrin-Sr Tab) 100 mg QAM PO 02/28/18 09:00 03/30/18 08:59 03/03/18 08:20 100 MG Bupropion HCl (Wellbutrin-Sr Tab) 200 mg HS PO 02/27/18 21:00 03/29/18 20:59 03/02/18 20:22 200 MG Folic Acid (Folvite Tab) 1 mg DAILY PO 02/28/18 09:00 03/30/18 08:59 03/03/18 08:22 1 MG Insulin Human Lispro (HumaLOG INSULIN PUMP) 1 ea ACHS N/A 02/27/18 21:00 03/29/18 20:59 03/03/18 16:15 1 EA Isosorbide Mononitrate (Imdur Ext Rel Tab) 60 mg DAILY PO 02/28/18 09:00 03/30/18 08:59 03/03/18 08:22 60 MG Metoprolol Tartrate (Lopressor Tab) 12.5 mg BID PO 02/27/18 21:00 03/29/18 20:59 03/03/18 08:21 12.5 MG Montelukast Sodium (Singulair Tab) 10 mg HS PO 02/27/18 21:00 03/29/18 20:59 03/02/18 20:23 10 MG Pantoprazole Sodium (Protonix Tab) 40 mg DAILY PO 02/28/18 09:00 03/30/18 08:59 03/03/18 08:22 40 MG Topiramate (Topamax Tab) 100 mg QAM PO 02/28/18 09:00 03/30/18 08:59 03/03/18 08:20 100 MG Topiramate (Topamax Tab) 200 mg HS PO 02/27/18 21:00 03/29/18 20:59 03/02/18 20:23 200 MG Insulin Human Lispro (humaLOG) SLIDING SCALE PRN PRN SC 02/27/18 20:00 03/29/18 19:59 03/03/18 04:06 200 UNITS Glucose (Glucose 40% Gel) 15-30 GRAMS 15 GRAMS... UD PRN PO 02/27/18 20:00 03/29/18 19:59 Glucose (Glucose Chew Tab) 4-8 Tablets 4 Tabl... UD PRN PO 02/27/18 20:00 03/29/18 19:59 Dextrose (Dextrose 50% 50ML Syringe) 25-50ML OF 50% DW IV FOR... UD PRN IV 02/27/18 20:00 03/29/18 19:59 Glucagon (Glucagon Inj) 1 mg UD PRN SQ 02/27/18 20:00 03/29/18 19:59 Albuterol/ Ipratropium (Duoneb) 3 ml Q4R PRN INH 02/27/18 23:30 03/29/18 23:29 03/03/18 19:04 3 ML Levothyroxine Sodium (Synthroid Tab) 200 mcg DAILYBB PO 02/28/18 06:00 03/30/18 05:59 03/03/18 06:00 200 MCG Enoxaparin Sodium (Lovenox Inj) 40 mg QAM SQ 02/28/18 09:00 03/30/18 08:59 03/03/18 08:23 40 MG Tramadol HCl (Ultram Tab) 50 mg BID PRN PO 02/28/18 22:00 03/30/18 21:59 02/28/18 22:15 50 MG Acetaminophen (Tylenol Tab) 650 mg Q6H PRN PO 02/28/18 22:00 03/30/18 21:59 02/28/18 22:17 650 MG Potassium Chloride (Klor-Con Tab) 20 meq QAM PO 03/02/18 09:00 04/01/18 08:59 03/03/18 08:21 20 MEQ Sodium Chloride (Sodium Chloride 7% Neb Solution) 4 ml Q4H PRN INH 03/01/18 14:45 03/31/18 14:44 03/03/18 19:05 4 ML Ceftriaxone Sodium 2000 mg/ Dextrose 70 ml @ 100 mls/hr DAILY@2100 IV 03/01/18 21:00 03/11/18 20:59 03/02/18 20:33 100 MLS/HR Ondansetron HCl (Zofran Inj) 4 mg Q6H PRN IV 03/02/18 00:15 04/01/18 00:14 03/03/18 06:00 4 MG Fluconazole (Diflucan Tab) 100 mg MoWeFr@0900 PO 03/03/18 09:00 03/13/18 08:59 03/03/18 08:20 100 MG Furosemide 80 mg/ Syringe 8 ml @ 4 mls/min BID17 IV 03/03/18 21:00 04/02/18 20:59 Magnesium Hydroxide (Milk Of Magnesia Susp) 30 ml BID PO 03/03/18 21:00 04/02/18 20:59
[2018-03-03] MEDS: FUROSEMIDE INJ 80 MG in SYRINGE 0 ML IV SCH (21:39)
[2018-03-03] MEDS: ATORVASTATIN 20 MG TAB PO SCH (21:40)
[2018-03-03] MEDS: MONTELUKAST SOD 10 MG TAB PO SCH (21:44)
[2018-03-03] MEDS: CEFTRIAXONE SOD INJ 2,000 MG in DEXTROSE 5% 50ML 50 ML IV SCH (21:49)
[2018-03-03] MEDS: MAGNESIUM HYDROXIDE SUSP 30 ML UDC PO SCH (21:49)
[2018-03-04] VITALS (15 sets, daily range): BP systolic 115–136; BP diastolic 58–74; PULSE 70–88; TEMP 36.4–36.9; O2SAT 90–99
[2018-03-04 05:51] LABS: HEMATOCRIT 36.4 % (37-47); HEMOGLOBIN 11.2 g/dL (12.0-16.0); MEAN CELL VOLUME 92.9 fL (80-100); MEAN CORPUSCULAR HEMOGLOBIN 28.6 pg (25-34); MEAN CORPUSCULAR HGB CONC 30.8 g/dl (32-36); PLATELET COUNT 248 K/uL (130-400); RED CELL DISTRIBUTION WIDTH CV 15.9 % (11.5-14.5); RED CELL DISTRIBUTION WIDTH SD 54.1 fL (36.4-46.3); WHITE BLOOD COUNT 8.98 K/uL (4.8-10.8)
[2018-03-04] MEDS: LEVOTHYROXINE 200 MCG TAB PO SCH (06:08)
[2018-03-04 06:35] LABS: CALCIUM 9.2 mg/dl (8.5-10.1); CREATININE 1.54 mg/dl (0.60-1.20)
[2018-03-04] MEDS: ALBUT/IPRATROP 3MG/0.5MG NEB 3 ML VIAL INH PRN ×4 (06:56→19:05)
[2018-03-04] MEDS: SODIUM CHLORIDE 7% 4 ML NEB INH PRN ×4 (06:56→19:05)
[2018-03-04 08:21] LABS: POTASSIUM 4.1 mmol/L (3.5-5.1)
[2018-03-04] MEDS: ISOSORBIDE MONONITRATE 60 MG TABCR PO SCH (08:31)
[2018-03-04] MEDS: FUROSEMIDE INJ 80 MG in SYRINGE 0 ML IV SCH ×2 (08:31→17:19)
[2018-03-04] MEDS: ASPIRIN 81 MG ECTAB PO SCH (08:31)
[2018-03-04] MEDS: POTASSIUM CHLORIDE 20 MEQ TABCR PO SCH (08:31)
[2018-03-04] MEDS: TOPIRAMATE 100 MG TAB PO SCH ×2 (08:32→21:34)
[2018-03-04] MEDS: METOPROLOL TARTRATE 25 MG TAB PO SCH ×2 (08:32→21:33)
[2018-03-04] MEDS: PANTOprazole SOD 40 MG TAB PO SCH (08:32)
[2018-03-04] MEDS: MAGNESIUM HYDROXIDE SUSP 30 ML UDC PO SCH (08:33)
[2018-03-04] MEDS: ENOXAPARIN 40 MG/0.4 ML SYR SQ SCH (08:33)
[2018-03-04] MEDS: BuPROPion SR 100 MG TABCR PO SCH ×2 (09:37→21:33)
[2018-03-04] MEDS ORDERED: MAGNESIUM HYDROXIDE SUSP 30 ML UDC PO PRN (16:30)
--- NOTE | 2018-03-04 16:43 | Progress Note ---
Medicine Progress Note Date & Time of Visit: Mar 04, 2018 at 09:50 . Subjective No fever. No chest pain. Ongoing lower extremity edema. Respiratory status stable with persistent trach secretions; saline nebs help. No nausea or vomiting. Successful bowel movement after MOM. Still has Payne catheter for urine outputs. . Objective Last 8 Hrs Date Time Temp Pulse Resp B/P (MAP) Pulse Ox O2 Delivery O2 Flow Rate FiO2 03/04/18 16:37 36.4 81 20 136/74 (94) 90 Trach Collar 6.0 03/04/18 16:00 98 Trach Collar 6.0 28 03/04/18 15:00 88 20 98 Trach Collar 6.0 28 03/04/18 12:00 96 Trach Collar 6.0 28 03/04/18 11:54 36.7 78 18 130/69 (89) 99 03/04/18 11:10 77 18 98 Trach Collar 6.0 28 Physical Exam: General- sitting in chair, no distress Neck- tracheostomy Lungs- diffuse mild wheezing, few scattered rhonchi; no respiratory distress Cardiovascular- RRR; I/ systolic murmur LSB; no gallop appreciated; difficult to assess neck pain; 3+ pretibial edema Abdomen- obese, + bowel sounds, soft, nontender Extremities- no cyanosis; no calf tenderness Neuro- alert, oriented Skin- warm & dry . Laboratory Results: Last 24 Hours Test 03/03/18 21:12 03/04/18 05:39 03/04/18 06:35 03/04/18 07:32 Bedside Glucose 198 mg/dl 122 mg/dl White Blood Count 8.98 K/uL Red Blood Count 3.92 M/uL Hemoglobin 11.2 g/dL Hematocrit 36.4 % Mean Corpuscular Volume 92.9 fL Mean Corpuscular Hemoglobin 28.6 pg Mean Corpuscular Hemoglobin Concent 30.8 g/dl RDW Standard Deviation 54.1 fL RDW Coefficient of Variation 15.9 % Platelet Count 248 K/uL Mean Platelet Volume 9.0 fL Sodium Level 138 mmol/L Potassium Level mmol/L 4.1 mmol/L Chloride Level 104 mmol/L Carbon Dioxide Level 33 mmol/L Anion Gap 1.0 mmol/L Blood Urea Nitrogen 26 mg/dl Creatinine 1.54 mg/dl Est Creatinine Clear Calc Drug Dose 62.5 ml/min Estimated GFR () 41.8 Estimated GFR (Non- 36.0 BUN/Creatinine Ratio 16.8 Random Glucose 144 mg/dl Calcium Level 9.2 mg/dl Magnesium Level mg/dl 2.8 mg/dl Test 03/04/18 11:13 03/04/18 13:17 Bedside Glucose 192 mg/dl 191 mg/dl Assessment & Plan CHF Chest x-ray demonstrated cardiomegaly and pulmonary vascular congestion. Echo Dec 2017 demonstrated normal LV systolic function, LV diastolic dysfunction , decreased RV systolic function. Acute on chronic left ventricular diastolic heart failure + acute on chronic right ventricular systolic heart failure. Cardiology consulted. Continue IV diuretics. CAD Serum troponin in ED normal. Continue aspirin, metoprolol, nitrates, statin. HYPERTENSION Continue metoprolol and nitrates. SLEEP APNEA / OBESITY HYPOVENTILATION SYNDROME S/P tracheostomy. Continue supplemental oxygen. PULMONARY SECRETIONS Patient experiencing thick pulmonary secretions which she attributes to diuretic therapy. Patient has tried guaifenesin in the past without benefit. Improved with saline nebs. CKD III Nephrology consulted. Serum creatinine today = 1.54. Follow. DM TYPE 2 Fairly well controlled. Hemoglobin A1c 8.5 on 01/15/18 and 7.5 on 03/01/18. Pharmacy consulted for glycemic management. Fasting blood sugar this morning 122. Continue insulin pump. MORBID OBESITY Weight 189 kg. BMI of 76. AHA / diabetic diet. UTI (present on admission) Urinalysis on admission demonstrated nitrites, leukocyte esterase, greater than 30 WBCs, 2+ bacteria. Urine culture grew E. coli, resistant to ampicillin, cefazolin, ciprofloxacin, levofloxacin, TMP/sulfa. Patient has noted some chills and possible dysuria. Reported penicillin allergy, but has received cephalosporins recently without difficulty. Receiving Rx with ceftriaxone; transition to oral therapy with cefuroxime per sensitivities. CONSTIPATION Bowel regimen as ordered. VTE PROPHYLAXIS SQ enoxaparin. Ambulate as able. DISPOSITION To be determined. Family Medicine follow-up with Dr. Leos. Cardiology follow-up with [facility]. . Current Inpatient Medications: Current Inpatient Medications Medications (Trade) Dose Ordered Sig/Fatoumata Route Start Time Stop Time Status Last Admin Dose Admin Aspirin (Ecotrin Tab) 81 mg DAILY PO 02/28/18 09:00 03/30/18 08:59 03/04/18 08:31 81 MG Atorvastatin Calcium (Lipitor Tab) 20 mg QPM PO 02/27/18 21:00 03/29/18 20:59 03/03/18 21:40 20 MG Bupropion HCl (Wellbutrin-Sr Tab) 100 mg QAM PO 02/28/18 09:00 03/30/18 08:59 03/04/18 09:37 100 MG Bupropion HCl (Wellbutrin-Sr Tab) 200 mg HS PO 02/27/18 21:00 03/29/18 20:59 03/03/18 21:44 200 MG Folic Acid (Folvite Tab) 1 mg DAILY PO 02/28/18 09:00 03/30/18 08:59 03/04/18 08:31 1 MG Insulin Human Lispro (HumaLOG INSULIN PUMP) 1 ea ACHS N/A 02/27/18 21:00 03/29/18 20:59 03/04/18 11:00 1 EA Isosorbide Mononitrate (Imdur Ext Rel Tab) 60 mg DAILY PO 02/28/18 09:00 03/30/18 08:59 03/04/18 08:31 60 MG Metoprolol Tartrate (Lopressor Tab) 12.5 mg BID PO 02/27/18 21:00 03/29/18 20:59 03/04/18 08:32 12.5 MG Montelukast Sodium (Singulair Tab) 10 mg HS PO 02/27/18 21:00 03/29/18 20:59 03/03/18 21:44 10 MG Pantoprazole Sodium (Protonix Tab) 40 mg DAILY PO 02/28/18 09:00 03/30/18 08:59 03/04/18 08:32 40 MG Topiramate (Topamax Tab) 100 mg QAM PO 02/28/18 09:00 03/30/18 08:59 03/04/18 08:32 100 MG Topiramate (Topamax Tab) 200 mg HS PO 02/27/18 21:00 03/29/18 20:59 03/03/18 21:45 200 MG Insulin Human Lispro (humaLOG) SLIDING SCALE PRN PRN SC 02/27/18 20:00 03/29/18 19:59 03/03/18 04:06 200 UNITS Glucose (Glucose 40% Gel) 15-30 GRAMS 15 GRAMS... UD PRN PO 02/27/18 20:00 03/29/18 19:59 Glucose (Glucose Chew Tab) 4-8 Tablets 4 Tabl... UD PRN PO 02/27/18 20:00 03/29/18 19:59 Dextrose (Dextrose 50% 50ML Syringe) 25-50ML OF 50% DW IV FOR... UD PRN IV 02/27/18 20:00 03/29/18 19:59 Glucagon (Glucagon Inj) 1 mg UD PRN SQ 02/27/18 20:00 03/29/18 19:59 Albuterol/ Ipratropium (Duoneb) 3 ml Q4R PRN INH 02/27/18 23:30 03/29/18 23:29 03/04/18 15:00 3 ML Levothyroxine Sodium (Synthroid Tab) 200 mcg DAILYBB PO 02/28/18 06:00 03/30/18 05:59 03/04/18 06:08 200 MCG Enoxaparin Sodium (Lovenox Inj) 40 mg QAM SQ 02/28/18 09:00 03/30/18 08:59 03/04/18 08:33 40 MG Tramadol HCl (Ultram Tab) 50 mg BID PRN PO 02/28/18 22:00 03/30/18 21:59 02/28/18 22:15 50 MG Acetaminophen (Tylenol Tab) 650 mg Q6H PRN PO 02/28/18 22:00 03/30/18 21:59 02/28/18 22:17 650 MG Potassium Chloride (Klor-Con Tab) 20 meq QAM PO 03/02/18 09:00 04/01/18 08:59 03/04/18 08:31 20 MEQ Sodium Chloride (Sodium Chloride 7% Neb Solution) 4 ml Q4H PRN INH 03/01/18 14:45 03/31/18 14:44 03/04/18 15:00 4 ML Ceftriaxone Sodium 2000 mg/ Dextrose 70 ml @ 100 mls/hr DAILY@2100 IV 03/01/18 21:00 03/11/18 20:59 03/03/18 21:49 100 MLS/HR Ondansetron HCl (Zofran Inj) 4 mg Q6H PRN IV 03/02/18 00:15 04/01/18 00:14 03/03/18 06:00 4 MG Fluconazole (Diflucan Tab) 100 mg MoWeFr@0900 PO 03/03/18 09:00 03/13/18 08:59 03/03/18 08:20 100 MG Furosemide 80 mg/ Syringe 8 ml @ 4 mls/min BID17 IV 03/03/18 21:00 04/02/18 20:59 03/04/18 08:31 4 MLS/MIN Magnesium Hydroxide (Milk Of Magnesia Susp) 30 ml BID PRN PO 03/04/18 16:30 04/02/18 20:59 UNV
[2018-03-04] MEDS ORDERED: ERGOCALCIFEROL 50,000 INTER.UNIT CAP PO ONE (17:15)
--- NOTE | 2018-03-04 17:54 | Cardiology Follow-Up ---
Subjective General Date of Service: Mar 04, 2018. Chief Complaint: SOB; CHF Pt evaluation today including: conversation w/ patient, physical exam History of Present Illness The patient is a 62 year old female seen in follow up. Diuresing well. Telemetry reveals stable SR. Allergies Coded Allergies: Amitriptyline (Verified Allergy, Unknown, `, 01/15/18) Gabapentin (Verified Allergy, Unknown, `, 01/15/18) Metformin (Verified Allergy, Unknown, `, 01/15/18) Penicillins (Verified Allergy, Unknown, `, 01/15/18) Pseudoephedrine (Verified Allergy, Unknown, `, 01/15/18) Tetracycline (Verified Allergy, Unknown, `, 01/15/18) Social History Smoking Status: Never Smoker Hx Tobacco Use In Past Year?: No Hx Alcohol Use - Type And Amou: No Hx Substance Use - Type And Am: No Problem List Medical Problems: (1) COPD exacerbation Status: Acute (2) Fluid overload Status: Acute (3) Hypoxia Status: Acute (4) Left leg cellulitis Status: Acute (5) Obesity Status: Acute (6) Respiratory distress Status: Acute (7) Rib pain on right side Status: Acute (8) Shortness of breath Status: Acute (9) SOB (shortness of breath) Status: Acute (10) Tracheostomy present Status: Acute Physical Exam Vital Signs Last Vital Signs Documentation Date Time Temp Pulse Resp B/P (MAP) Pulse Ox O2 Delivery O2 Flow Rate FiO2 03/04/18 16:37 36.4 81 20 136/74 (94) 90 Trach Collar 6.0 03/04/18 16:00 28 Physical Exam Constitutional: General Apperance: obese Level of Distress: NAD, chronically ill Psychiatric: Mental Status: active & alert Orientation: to time, to place, to person Head: normocephalic Neck: supple Lungs: Auscultation: deminished air movement, decreased breath sounds Cardiovascular: Heart Auscultation: RRR, no murmurs Extremities: edema (2-3+ indurated edema b/l) Assessment and Plan Assessment and Plan IMPRESSION: 62 year old female 1. Acute on chronic right sided heart failure with underlying hypoventilation syndrome/obesity/COPD 2. S/P tracheostomy in 2007 3. CKD - at baseline 4. Hypertension - controlled 5. Morbid obesity PLAN: Continue IV furosemide 80 mg IV BID and enoxaparin for DVT prophylaxis. Laboratory Results Last 24 Hours Test 03/03/18 21:12 03/04/18 05:39 03/04/18 06:35 03/04/18 07:32 Bedside Glucose 198 mg/dl 122 mg/dl White Blood Count 8.98 K/uL Red Blood Count 3.92 M/uL Hemoglobin 11.2 g/dL Hematocrit 36.4 % Mean Corpuscular Volume 92.9 fL Mean Corpuscular Hemoglobin 28.6 pg Mean Corpuscular Hemoglobin Concent 30.8 g/dl RDW Standard Deviation 54.1 fL RDW Coefficient of Variation 15.9 % Platelet Count 248 K/uL Mean Platelet Volume 9.0 fL Sodium Level 138 mmol/L Potassium Level mmol/L 4.1 mmol/L Chloride Level 104 mmol/L Carbon Dioxide Level 33 mmol/L Anion Gap 1.0 mmol/L Blood Urea Nitrogen 26 mg/dl Creatinine 1.54 mg/dl Est Creatinine Clear Calc Drug Dose 62.5 ml/min Estimated GFR () 41.8 Estimated GFR (Non- 36.0 BUN/Creatinine Ratio 16.8 Random Glucose 144 mg/dl Calcium Level 9.2 mg/dl Magnesium Level mg/dl 2.8 mg/dl Test 03/04/18 11:13 03/04/18 13:17 03/04/18 16:42 Bedside Glucose 192 mg/dl 191 mg/dl 174 mg/dl
[2018-03-04] MEDS: CEFTRIAXONE SOD INJ 2,000 MG in DEXTROSE 5% 50ML 50 ML IV SCH (21:32)
[2018-03-04] MEDS: ATORVASTATIN 20 MG TAB PO SCH (21:32)
[2018-03-04] MEDS: MONTELUKAST SOD 10 MG TAB PO SCH (21:34)
[2018-03-05] VITALS (10 sets, daily range): BP systolic 117–151; BP diastolic 66–80; PULSE 70–83; TEMP 36.6–36.9; O2SAT 90–98
[2018-03-05] MEDS: LEVOTHYROXINE 200 MCG TAB PO SCH (06:21)
[2018-03-05] MEDS: ALBUT/IPRATROP 3MG/0.5MG NEB 3 ML VIAL INH PRN ×4 (06:59→18:55)
[2018-03-05] MEDS: SODIUM CHLORIDE 7% 4 ML NEB INH PRN ×4 (06:59→18:55)
[2018-03-05 07:11] LABS: CREATININE 1.54 mg/dl (0.60-1.20); POTASSIUM 4.3 mmol/L (3.5-5.1)
[2018-03-05] MEDS: FUROSEMIDE INJ 80 MG in SYRINGE 0 ML IV SCH ×2 (08:40→16:50)
[2018-03-05] MEDS: TOPIRAMATE 100 MG TAB PO SCH ×2 (08:41→21:12)
[2018-03-05] MEDS: ENOXAPARIN 40 MG/0.4 ML SYR SQ SCH (08:41)
[2018-03-05] MEDS: BuPROPion SR 100 MG TABCR PO SCH ×2 (08:41→21:06)
[2018-03-05] MEDS: CEFUROXIME AXETIL 500 MG TAB PO SCH ×2 (08:41→21:03)
[2018-03-05] MEDS: MULTIVITAMIN TAB PO SCH (08:41)
[2018-03-05] MEDS: METOPROLOL TARTRATE 25 MG TAB PO SCH ×2 (08:42→21:07)
[2018-03-05] MEDS: ISOSORBIDE MONONITRATE 60 MG TABCR PO SCH (08:42)
[2018-03-05] MEDS: PANTOprazole SOD 40 MG TAB PO SCH (08:42)
[2018-03-05] MEDS: POTASSIUM CHLORIDE 20 MEQ TABCR PO SCH (08:42)
[2018-03-05] MEDS: ASPIRIN 81 MG ECTAB PO SCH (08:42)
--- NOTE | 2018-03-05 12:11 | Cardiology Follow-Up ---
Subjective General Date of Service: Mar 05, 2018. Chief Complaint: SOB; CHF Pt evaluation today including: conversation w/ patient, physical exam History of Present Illness The patient is a 62 year old female seen in follow up. Continue to improve, slowly. Telemetry reveals stable SR. Allergies Coded Allergies: Amitriptyline (Verified Allergy, Unknown, `, 01/15/18) Gabapentin (Verified Allergy, Unknown, `, 01/15/18) Metformin (Verified Allergy, Unknown, `, 01/15/18) Penicillins (Verified Allergy, Unknown, `, 01/15/18) Pseudoephedrine (Verified Allergy, Unknown, `, 01/15/18) Tetracycline (Verified Allergy, Unknown, `, 01/15/18) Social History Smoking Status: Never Smoker Hx Tobacco Use In Past Year?: No Hx Alcohol Use - Type And Amou: No Hx Substance Use - Type And Am: No Problem List Medical Problems: (1) COPD exacerbation Status: Acute (2) Fluid overload Status: Acute (3) Hypoxia Status: Acute (4) Left leg cellulitis Status: Acute (5) Obesity Status: Acute (6) Respiratory distress Status: Acute (7) Rib pain on right side Status: Acute (8) Shortness of breath Status: Acute (9) SOB (shortness of breath) Status: Acute (10) Tracheostomy present Status: Acute Physical Exam Vital Signs Last Vital Signs Documentation Date Time Temp Pulse Resp B/P (MAP) Pulse Ox O2 Delivery O2 Flow Rate FiO2 03/05/18 12:00 36.6 83 18 151/80 (103) 90 Trach Collar 03/05/18 11:40 6.0 28 Physical Exam Constitutional: General Apperance: obese Level of Distress: NAD, chronically ill Psychiatric: Mental Status: active & alert Orientation: to time, to place, to person Head: normocephalic Neck: supple Lungs: Auscultation: deminished air movement, decreased breath sounds Cardiovascular: Heart Auscultation: RRR, no murmurs Extremities: edema (2-3+ indurated edema b/l) Assessment and Plan Assessment and Plan IMPRESSION: 62 year old female 1. Acute on chronic right sided heart failure with underlying hypoventilation syndrome/obesity/COPD 2. S/P tracheostomy in 2007 3. CKD - at baseline 4. Hypertension - controlled 5. Morbid obesity PLAN: Continue IV furosemide 80 mg IV BID and enoxaparin for DVT prophylaxis. Laboratory Results Last 24 Hours Test 03/04/18 13:17 03/04/18 16:42 03/04/18 20:27 03/05/18 06:25 Bedside Glucose 191 mg/dl 174 mg/dl 144 mg/dl Sodium Level 140 mmol/L Potassium Level 4.3 mmol/L Chloride Level 103 mmol/L Carbon Dioxide Level 33 mmol/L Anion Gap 3.0 mmol/L Blood Urea Nitrogen 24 mg/dl Creatinine 1.54 mg/dl Est Creatinine Clear Calc Drug Dose 62.6 ml/min Estimated GFR () 41.8 Estimated GFR (Non- 36.0 BUN/Creatinine Ratio 15.5 Random Glucose 114 mg/dl Calcium Level 9.0 mg/dl Test 03/05/18 06:51 03/05/18 11:26 Bedside Glucose 110 mg/dl 169 mg/dl
--- NOTE | 2018-03-05 19:12 | Progress Note ---
Medicine Progress Note Date & Time of Visit: Mar 05, 2018 at 11:05 . Subjective No fever. No chest pain. Respiratory status stable. No nausea or vomiting. Bowel movements yesterday and today. Still has Payne catheter for urine outputs. . Objective Last 8 Hrs Date Time Temp Pulse Resp B/P (MAP) Pulse Ox O2 Delivery O2 Flow Rate FiO2 03/05/18 18:55 78 22 98 Trach Collar 6.0 28 03/05/18 16:07 36.7 70 20 137/66 (89) 95 Trach Collar 6.0 03/05/18 16:00 Trach Collar 6.0 03/05/18 14:57 79 20 97 Trach Collar 6.0 28 03/05/18 12:00 Trach Collar 6.0 03/05/18 12:00 36.6 83 18 151/80 (103) 90 Trach Collar 03/05/18 11:40 79 20 97 Trach Collar 6.0 28 Physical Exam: General- sitting in chair, no distress Neck- tracheostomy Lungs- diffuse mild wheezing, few scattered rhonchi; no respiratory distress Cardiovascular- RRR; I/ systolic murmur LSB; no gallop appreciated; difficult to assess neck veins; 3+ pretibial edema Abdomen- obese, + bowel sounds, soft, nontender Extremities- no cyanosis; no calf tenderness Neuro- alert, oriented Skin- warm & dry; chronic venous stasis changes lower extremities . Laboratory Results: Last 24 Hours Test 03/04/18 20:27 03/05/18 06:25 03/05/18 06:51 03/05/18 11:26 Bedside Glucose 144 mg/dl 110 mg/dl 169 mg/dl Sodium Level 140 mmol/L Potassium Level 4.3 mmol/L Chloride Level 103 mmol/L Carbon Dioxide Level 33 mmol/L Anion Gap 3.0 mmol/L Blood Urea Nitrogen 24 mg/dl Creatinine 1.54 mg/dl Est Creatinine Clear Calc Drug Dose 62.6 ml/min Estimated GFR () 41.8 Estimated GFR (Non- 36.0 BUN/Creatinine Ratio 15.5 Random Glucose 114 mg/dl Calcium Level 9.0 mg/dl Test 03/05/18 16:12 Bedside Glucose 135 mg/dl Assessment & Plan CHF Chest x-ray demonstrated cardiomegaly and pulmonary vascular congestion. Echo Dec 2017 demonstrated normal LV systolic function, LV diastolic dysfunction , decreased RV systolic function. Acute on chronic left ventricular diastolic heart failure + acute on chronic right ventricular systolic heart failure. Cardiology consulted. No significant weight change yet, but output > intake. Continue IV diuretics. CAD Serum troponin in ED normal. Continue aspirin, metoprolol, nitrates, statin. HYPERTENSION Continue metoprolol and nitrates. SLEEP APNEA / OBESITY HYPOVENTILATION SYNDROME S/P tracheostomy. Continue supplemental oxygen. PULMONARY SECRETIONS Patient experiencing thick pulmonary secretions which she attributes to diuretic therapy. Patient has tried guaifenesin in the past without benefit. Improved with saline nebs. CKD III Nephrology consulted. Serum creatinine today = 1.54. Follow. DM TYPE 2 Fairly well controlled. Hemoglobin A1c 8.5 on 01/15/18 and 7.5 on 03/01/18. Pharmacy consulted for glycemic management. Fasting blood sugar this morning 110. Continue insulin pump. MORBID OBESITY Weight 189 kg. BMI of 76. AHA / diabetic diet. UTI (present on admission) Urinalysis on admission demonstrated nitrites, leukocyte esterase, greater than 30 WBCs, 2+ bacteria. Urine culture grew E. coli, resistant to ampicillin, cefazolin, ciprofloxacin, levofloxacin, TMP/sulfa. Patient has noted some chills and possible dysuria. Reported penicillin allergy, but has received cephalosporins recently without difficulty. Receiving Rx with ceftriaxone; transition to oral therapy with cefuroxime per sensitivities. CONSTIPATION Bowel regimen as ordered. VTE PROPHYLAXIS SQ enoxaparin. Ambulate as able. DISPOSITION To be determined. Family Medicine follow-up with Dr. Leos. Cardiology follow[facility] with [facility]. . Current Inpatient Medications: Current Inpatient Medications Medications (Trade) Dose Ordered Sig/Fatoumata Route Start Time Stop Time Status Last Admin Dose Admin Aspirin (Ecotrin Tab) 81 mg DAILY PO 02/28/18 09:00 03/30/18 08:59 03/05/18 08:42 81 MG Atorvastatin Calcium (Lipitor Tab) 20 mg QPM PO 02/27/18 21:00 03/29/18 20:59 03/04/18 21:32 20 MG Bupropion HCl (Wellbutrin-Sr Tab) 100 mg QAM PO 02/28/18 09:00 03/30/18 08:59 03/05/18 08:41 100 MG Bupropion HCl (Wellbutrin-Sr Tab) 200 mg HS PO 02/27/18 21:00 03/29/18 20:59 03/04/18 21:33 200 MG Folic Acid (Folvite Tab) 1 mg DAILY PO 02/28/18 09:00 03/30/18 08:59 03/05/18 08:42 1 MG Insulin Human Lispro (HumaLOG INSULIN PUMP) 1 ea ACHS N/A 02/27/18 21:00 03/29/18 20:59 03/05/18 16:50 1 EA Isosorbide Mononitrate (Imdur Ext Rel Tab) 60 mg DAILY PO 02/28/18 09:00 03/30/18 08:59 03/05/18 08:42 60 MG Metoprolol Tartrate (Lopressor Tab) 12.5 mg BID PO 02/27/18 21:00 03/29/18 20:59 03/05/18 08:42 12.5 MG Montelukast Sodium (Singulair Tab) 10 mg HS PO 02/27/18 21:00 03/29/18 20:59 03/04/18 21:34 10 MG Pantoprazole Sodium (Protonix Tab) 40 mg DAILY PO 02/28/18 09:00 03/30/18 08:59 03/05/18 08:42 40 MG Topiramate (Topamax Tab) 100 mg QAM PO 02/28/18 09:00 03/30/18 08:59 03/05/18 08:41 100 MG Topiramate (Topamax Tab) 200 mg HS PO 02/27/18 21:00 03/29/18 20:59 03/04/18 21:34 200 MG Insulin Human Lispro (humaLOG) SLIDING SCALE PRN PRN SC 02/27/18 20:00 03/29/18 19:59 03/03/18 04:06 200 UNITS Glucose (Glucose 40% Gel) 15-30 GRAMS 15 GRAMS... UD PRN PO 02/27/18 20:00 03/29/18 19:59 Glucose (Glucose Chew Tab) 4-8 Tablets 4 Tabl... UD PRN PO 02/27/18 20:00 03/29/18 19:59 Dextrose (Dextrose 50% 50ML Syringe) 25-50ML OF 50% DW IV FOR... UD PRN IV 4/9/18 20:00 03/29/18 19:59 Glucagon (Glucagon Inj) 1 mg UD PRN SQ 02/27/18 20:00 03/29/18 19:59 Albuterol/ Ipratropium (Duoneb) 3 ml Q4R PRN INH 02/27/18 23:30 03/29/18 23:29 03/05/18 18:55 3 ML Levothyroxine Sodium (Synthroid Tab) 200 mcg DAILYBB PO 02/28/18 06:00 03/30/18 05:59 03/05/18 06:21 200 MCG Enoxaparin Sodium (Lovenox Inj) 40 mg QAM SQ 02/28/18 09:00 03/30/18 08:59 03/05/18 08:41 40 MG Tramadol HCl (Ultram Tab) 50 mg BID PRN PO 02/28/18 22:00 03/30/18 21:59 02/28/18 22:15 50 MG Acetaminophen (Tylenol Tab) 650 mg Q6H PRN PO 02/28/18 22:00 03/30/18 21:59 02/28/18 22:17 650 MG Potassium Chloride (Klor-Con Tab) 20 meq QAM PO 03/02/18 09:00 04/01/18 08:59 03/05/18 08:42 20 MEQ Sodium Chloride (Sodium Chloride 7% Neb Solution) 4 ml Q4H PRN INH 03/01/18 14:45 03/31/18 14:44 03/05/18 18:55 4 ML Ondansetron HCl (Zofran Inj) 4 mg Q6H PRN IV 03/02/18 00:15 04/01/18 00:14 03/03/18 06:00 4 MG Fluconazole (Diflucan Tab) 100 mg MoWeFr@0900 PO 03/03/18 09:00 03/13/18 08:59 03/03/18 08:20 100 MG Furosemide 80 mg/ Syringe 8 ml @ 4 mls/min BID17 IV 03/03/18 21:00 04/02/18 20:59 03/05/18 16:50 4 MLS/MIN Magnesium Hydroxide (Milk Of Magnesia Susp) 30 ml BID PRN PO 03/04/18 16:30 04/02/18 20:59 Cefuroxime Axetil (Ceftin Tab) 500 mg BID PO 03/05/18 09:00 03/10/18 08:59 03/05/18 08:41 500 MG Multivitamins (Multivitamin Tab) 1 tab QAM PO 03/05/18 09:00 04/04/18 08:59 03/05/18 08:41 1 TAB Ergocalciferol (Vitamin D Cap) 50,000 interunit MoWeFr@0900 PO 03/06/18 09:00 04/05/18 08:59
[2018-03-05] MEDS: ATORVASTATIN 20 MG TAB PO SCH (21:04)
[2018-03-05] MEDS: MONTELUKAST SOD 10 MG TAB PO SCH (21:13)
[2018-03-06] VITALS (12 sets, daily range): BP systolic 106–162; BP diastolic 45–82; PULSE 66–81; TEMP 36.6–36.9; O2SAT 94–97
[2018-03-06] MEDS: LEVOTHYROXINE 200 MCG TAB PO SCH (06:29)
[2018-03-06] MEDS: ALBUT/IPRATROP 3MG/0.5MG NEB 3 ML VIAL INH PRN ×4 (06:59→19:00)
[2018-03-06] MEDS: SODIUM CHLORIDE 7% 4 ML NEB INH PRN ×2 (06:59→19:00)
[2018-03-06 07:25] LABS: CALCIUM 8.9 mg/dl (8.5-10.1); CREATININE 1.47 mg/dl (0.60-1.20)
[2018-03-06] MEDS: BuPROPion SR 100 MG TABCR PO SCH ×2 (08:17→21:47)
[2018-03-06] MEDS: TOPIRAMATE 100 MG TAB PO SCH ×2 (08:17→21:46)
[2018-03-06] MEDS: ISOSORBIDE MONONITRATE 60 MG TABCR PO SCH (08:17)
[2018-03-06] MEDS: CEFUROXIME AXETIL 500 MG TAB PO SCH ×2 (08:17→21:44)
[2018-03-06] MEDS: METOPROLOL TARTRATE 25 MG TAB PO SCH ×2 (08:18→21:46)
[2018-03-06] MEDS: ASPIRIN 81 MG ECTAB PO SCH (08:18)
[2018-03-06] MEDS: ERGOCALCIFEROL 50,000 INTER.UNIT CAP PO SCH (08:18)
[2018-03-06] MEDS: MULTIVITAMIN TAB PO SCH (08:18)
[2018-03-06] MEDS: PANTOprazole SOD 40 MG TAB PO SCH (08:19)
[2018-03-06] MEDS: ENOXAPARIN 40 MG/0.4 ML SYR SQ SCH (08:19)
[2018-03-06] MEDS: POTASSIUM CHLORIDE 20 MEQ TABCR PO SCH (08:19)
[2018-03-06] MEDS: FLUCONAZOLE 100 MG TAB PO SCH (08:19)
[2018-03-06] MEDS: FUROSEMIDE INJ 80 MG in SYRINGE 0 ML IV SCH (09:19)
--- NOTE | 2018-03-06 13:15 | Cardiology Follow-Up ---
Subjective General Date of Service: Mar 06, 2018. Chief Complaint: SOB; CHF Pt evaluation today including: conversation w/ patient, conversation w/ family , physical exam History of Present Illness The patient is a 62 year old female seen in follow up. Pt is in bedside chair. No significant change. I/O negative by 1 L yesterday , but still grossly volume overloaded. Renal function and BP are stable. Payne catheter is in place. Allergies Coded Allergies: Amitriptyline (Verified Allergy, Unknown, `, 01/15/18) Gabapentin (Verified Allergy, Unknown, `, 01/15/18) Metformin (Verified Allergy, Unknown, `, 01/15/18) Penicillins (Verified Allergy, Unknown, `, 01/15/18) Pseudoephedrine (Verified Allergy, Unknown, `, 01/15/18) Tetracycline (Verified Allergy, Unknown, `, 01/15/18) Social History Smoking Status: Never Smoker Hx Tobacco Use In Past Year?: No Hx Alcohol Use - Type And Amou: No Hx Substance Use - Type And Am: No Problem List Medical Problems: (1) COPD exacerbation Status: Acute (2) Fluid overload Status: Acute (3) Hypoxia Status: Acute (4) Left leg cellulitis Status: Acute (5) Obesity Status: Acute (6) Respiratory distress Status: Acute (7) Rib pain on right side Status: Acute (8) Shortness of breath Status: Acute (9) SOB (shortness of breath) Status: Acute (10) Tracheostomy present Status: Acute Physical Exam Vital Signs Last Vital Signs Documentation Date Time Temp Pulse Resp B/P (MAP) Pulse Ox O2 Delivery O2 Flow Rate FiO2 03/06/18 12:00 Trach Collar 6.0 03/06/18 11:22 69 22 97 28 03/06/18 11:21 36.6 123/69 (87) Physical Exam Constitutional: General Apperance: obese Level of Distress: NAD, chronically ill Psychiatric: Mental Status: active & alert Orientation: to time, to place, to person Head: normocephalic Neck: supple Lungs: Auscultation: deminished air movement, decreased breath sounds Cardiovascular: Heart Auscultation: RRR, no murmurs Extremities: edema (2-3+ indurated edema b/l) Neurologic: Gait & Station: pertinent finding (no focal deficits ) Assessment and Plan Assessment and Plan IMPRESSION: 62 year old female 1. Acute on chronic right sided heart failure with underlying hypoventilation syndrome/obesity/COPD -still with volume overload. 2. S/P tracheostomy in 2007 3. CKD - at baseline 4. Hypertension - controlled 5. Morbid obesity PLAN: Will transition to furosemide infusion, start 10 mg/ hour. Pt on KCL 20 Meq daily, will adjust as necessary, K stable this am. Repeat BMP tomorrow. Continue enoxaparin for DVT prophylaxis. Discussed with Dr Sotelo and pharmacy. Laboratory Results Last 24 Hours Test 03/05/18 16:12 03/05/18 20:36 03/06/18 06:26 03/06/18 06:44 Bedside Glucose 135 mg/dl 167 mg/dl 129 mg/dl Sodium Level 138 mmol/L Potassium Level 4.0 mmol/L Chloride Level 103 mmol/L Carbon Dioxide Level 31 mmol/L Anion Gap 4.0 mmol/L Blood Urea Nitrogen 27 mg/dl Creatinine 1.47 mg/dl Est Creatinine Clear Calc Drug Dose 51.6 ml/min Estimated GFR () 44.2 Estimated GFR (Non- 38.1 BUN/Creatinine Ratio 18.1 Random Glucose 131 mg/dl Calcium Level 8.9 mg/dl Test 03/06/18 11:04 Bedside Glucose 130 mg/dl
[2018-03-06] MEDS: FUROSEMIDE INJ 100 MG in DEXTROSE 5% 100ML 90 ML IV SCH ×2 (14:13→23:45)
--- NOTE | 2018-03-06 19:45 | Progress Note ---
Medicine Progress Note Date & Time of Visit: Mar 06, 2018 at 10:00 . Subjective CC: Follow-up visit for CHF and other problems.. HPI: Weight down 1.1 kg since yesterday. Persistent lower extremity edema. No chest pain. Persistent chest/trach secretions. ROS: General- no fever Resp- as noted above in HPI Cardiac- as noted above in HPI GI- no nausea, no vomiting, no diarrhea, no constipation - Molina cath . Objective Last 8 Hrs Date Time Temp Pulse Resp B/P (MAP) Pulse Ox O2 Delivery O2 Flow Rate FiO2 03/06/18 19:33 36.9 81 20 162/82 (108) 96 Trach Collar 6.0 03/06/18 19:05 74 20 95 Trach Collar 6.0 28 03/06/18 17:00 95 Trach Collar 6.0 28 03/06/18 16:30 36.7 73 20 144/79 (100) 97 Trach Collar 6.0 03/06/18 15:18 71 20 97 Trach Collar 6.0 28 03/06/18 12:00 Trach Collar 6.0 Physical Exam: General- sitting in chair, no distress Neck- tracheostomy Lungs- diffuse mild wheezing, scattered rhonchi; no respiratory distress Cardiovascular- RRR; I/ systolic murmur LSB; no gallop appreciated; difficult to assess neck veins; 3-4+ pretibial edema Abdomen- obese, + bowel sounds, soft, nontender Extremities- no cyanosis; no calf tenderness Neuro- alert, oriented Skin- warm & dry; mild erythema and induration lower extremities . Laboratory Results: Last 24 Hours Test 03/05/18 20:36 03/06/18 06:26 03/06/18 06:44 03/06/18 11:04 Bedside Glucose 167 mg/dl 129 mg/dl 130 mg/dl Sodium Level 138 mmol/L Potassium Level 4.0 mmol/L Chloride Level 103 mmol/L Carbon Dioxide Level 31 mmol/L Anion Gap 4.0 mmol/L Blood Urea Nitrogen 27 mg/dl Creatinine 1.47 mg/dl Est Creatinine Clear Calc Drug Dose 51.6 ml/min Estimated GFR () 44.2 Estimated GFR (Non- 38.1 BUN/Creatinine Ratio 18.1 Random Glucose 131 mg/dl Calcium Level 8.9 mg/dl Test 03/06/18 16:32 Bedside Glucose 170 mg/dl Assessment & Plan CHF Chest x-ray demonstrated cardiomegaly and pulmonary vascular congestion. Echo Dec 2017 demonstrated normal LV systolic function, LV diastolic dysfunction , decreased RV systolic function. Acute on chronic left ventricular diastolic heart failure + acute on chronic right ventricular systolic heart failure. Cardiology consulted. No significant weight change yet, but output > intake. Continue IV diuretics- Cardiology starting furosemide drip. CAD Serum troponin in ED normal. No anginal symptoms. Continue aspirin, metoprolol, nitrates, statin. HYPERTENSION Blood pressure this morning 144/73. Continue metoprolol and nitrates. SLEEP APNEA / OBESITY HYPOVENTILATION SYNDROME S/P tracheostomy. Continue supplemental oxygen. PULMONARY SECRETIONS Patient experiencing thick pulmonary secretions which she attributes to diuretic therapy. Patient has tried guaifenesin in the past without benefit. Improved with saline nebs. CKD III Nephrology consulted. Serum creatinine today = 1.47. Follow. DM TYPE 2 Fairly well controlled. Hemoglobin A1c 8.5 on 01/15/18 and 7.5 on 03/01/18. Pharmacy consulted for glycemic management. Fasting blood sugar this morning 129. Continue insulin pump. MORBID OBESITY Weight 189 kg. BMI of 76. AHA / diabetic diet. UTI (present on admission) Urinalysis on admission demonstrated nitrites, leukocyte esterase, greater than 30 WBCs, 2+ bacteria. Urine culture grew E. coli, resistant to ampicillin, cefazolin, ciprofloxacin, levofloxacin, TMP/sulfa. Patient has noted some chills and possible dysuria. Reported penicillin allergy, but has received cephalosporins recently without difficulty. Received Rx with ceftriaxone; transitioned to oral therapy with cefuroxime per sensitivities. CONSTIPATION Bowel regimen as ordered. MOLINA CATHETER Remove when able. VTE PROPHYLAXIS SQ enoxaparin. Ambulate as able. DISPOSITION To be determined. May need skilled care or rehab. Family Medicine follow-up with Dr. Leos. Cardiology follow[facility] with [facility]. . Current Inpatient Medications: Current Inpatient Medications Medications (Trade) Dose Ordered Sig/Fatoumata Route Start Time Stop Time Status Last Admin Dose Admin Aspirin (Ecotrin Tab) 81 mg DAILY PO 02/28/18 09:00 03/30/18 08:59 03/06/18 08:18 81 MG Atorvastatin Calcium (Lipitor Tab) 20 mg QPM PO 02/27/18 21:00 03/29/18 20:59 03/05/18 21:04 20 MG Bupropion HCl (Wellbutrin-Sr Tab) 100 mg QAM PO 02/28/18 09:00 03/30/18 08:59 03/06/18 08:17 100 MG Bupropion HCl (Wellbutrin-Sr Tab) 200 mg HS PO 02/27/18 21:00 03/29/18 20:59 03/05/18 21:06 200 MG Folic Acid (Folvite Tab) 1 mg DAILY PO 02/28/18 09:00 03/30/18 08:59 03/06/18 08:18 1 MG Insulin Human Lispro (HumaLOG INSULIN PUMP) 1 ea ACHS N/A 02/27/18 21:00 03/29/18 20:59 03/06/18 16:15 1 EA Isosorbide Mononitrate (Imdur Ext Rel Tab) 60 mg DAILY PO 02/28/18 09:00 03/30/18 08:59 03/06/18 08:17 60 MG Metoprolol Tartrate (Lopressor Tab) 12.5 mg BID PO 02/27/18 21:00 03/29/18 20:59 03/06/18 08:18 12.5 MG Montelukast Sodium (Singulair Tab) 10 mg HS PO 02/27/18 21:00 03/29/18 20:59 03/05/18 21:13 10 MG Pantoprazole Sodium (Protonix Tab) 40 mg DAILY PO 02/28/18 09:00 03/30/18 08:59 03/06/18 08:19 40 MG Topiramate (Topamax Tab) 100 mg QAM PO 02/28/18 09:00 03/30/18 08:59 03/06/18 08:17 100 MG Topiramate (Topamax Tab) 200 mg HS PO 02/27/18 21:00 03/29/18 20:59 03/05/18 21:12 200 MG Insulin Human Lispro (humaLOG) SLIDING SCALE PRN PRN SC 02/27/18 20:00 03/29/18 19:59 03/03/18 04:06 200 UNITS Glucose (Glucose 40% Gel) 15-30 GRAMS 15 GRAMS... UD PRN PO 02/27/18 20:00 5/9/18 19:59 Glucose (Glucose Chew Tab) 4-8 Tablets 4 Tabl... UD PRN PO 02/27/18 20:00 03/29/18 19:59 Dextrose (Dextrose 50% 50ML Syringe) 25-50ML OF 50% DW IV FOR... UD PRN IV 02/27/18 20:00 03/29/18 19:59 Glucagon (Glucagon Inj) 1 mg UD PRN SQ 02/27/18 20:00 03/29/18 19:59 Albuterol/ Ipratropium (Duoneb) 3 ml Q4R PRN INH 02/27/18 23:30 03/29/18 23:29 03/06/18 19:00 3 ML Levothyroxine Sodium (Synthroid Tab) 200 mcg DAILYBB PO 02/28/18 06:00 03/30/18 05:59 03/06/18 06:29 200 MCG Enoxaparin Sodium (Lovenox Inj) 40 mg QAM SQ 02/28/18 09:00 03/30/18 08:59 03/06/18 08:19 40 MG Tramadol HCl (Ultram Tab) 50 mg BID PRN PO 02/28/18 22:00 03/30/18 21:59 02/28/18 22:15 50 MG Acetaminophen (Tylenol Tab) 650 mg Q6H PRN PO 02/28/18 22:00 03/30/18 21:59 02/28/18 22:17 650 MG Potassium Chloride (Klor-Con Tab) 20 meq QAM PO 03/02/18 09:00 04/01/18 08:59 03/06/18 08:19 20 MEQ Sodium Chloride (Sodium Chloride 7% Neb Solution) 4 ml Q4H PRN INH 03/01/18 14:45 03/31/18 14:44 03/06/18 19:00 4 ML Ondansetron HCl (Zofran Inj) 4 mg Q6H PRN IV 03/02/18 00:15 04/01/18 00:14 03/03/18 06:00 4 MG Fluconazole (Diflucan Tab) 100 mg MoWeFr@0900 PO 03/03/18 09:00 03/13/18 08:59 03/06/18 08:19 100 MG Magnesium Hydroxide (Milk Of Magnesia Susp) 30 ml BID PRN PO 03/04/18 16:30 04/02/18 20:59 Cefuroxime Axetil (Ceftin Tab) 500 mg BID PO 03/05/18 09:00 03/10/18 08:59 03/06/18 08:17 500 MG Multivitamins (Multivitamin Tab) 1 tab QAM PO 03/05/18 09:00 04/04/18 08:59 03/06/18 08:18 1 TAB Ergocalciferol (Vitamin D Cap) 50,000 interunit MoWeFr@0900 PO 03/06/18 09:00 04/05/18 08:59 03/06/18 08:18 50,000 INTERUNIT Furosemide 100 mg/ Dextrose 100 ml @ 10 mls/hr Q10H IV 03/06/18 13:30 04/05/18 13:29 03/06/18 14:13 10 MLS/HR
[2018-03-06] MEDS: ATORVASTATIN 20 MG TAB PO SCH (21:45)
[2018-03-06] MEDS: MONTELUKAST SOD 10 MG TAB PO SCH (21:46)
[2018-03-07] VITALS (13 sets, daily range): BP systolic 111–148; BP diastolic 56–82; PULSE 71–81; TEMP 36.3–37; O2SAT 95–99
[2018-03-07] MEDS: TRAMADOL HCL 50 MG TAB PO PRN (01:13)
[2018-03-07] MEDS: ALBUT/IPRATROP 3MG/0.5MG NEB 3 ML VIAL INH PRN ×5 (03:25→19:20)
[2018-03-07] MEDS: LEVOTHYROXINE 200 MCG TAB PO SCH (05:53)
[2018-03-07 06:09] LABS: HEMATOCRIT 34.9 % (37-47); HEMOGLOBIN 10.7 g/dL (12.0-16.0); MEAN CELL VOLUME 93.1 fL (80-100); MEAN CORPUSCULAR HEMOGLOBIN 28.5 pg (25-34); MEAN CORPUSCULAR HGB CONC 30.7 g/dl (32-36); MEAN PLATELET VOLUME 9.3 fL (7.4-10.4); PLATELET COUNT 220 K/uL (130-400); RED CELL DISTRIBUTION WIDTH CV 15.6 % (11.5-14.5); WHITE BLOOD COUNT 7.92 K/uL (4.8-10.8)
[2018-03-07 06:40] LABS: CALCIUM 8.9 mg/dl (8.5-10.1); CREATININE 1.39 mg/dl (0.60-1.20); POTASSIUM 3.6 mmol/L (3.5-5.1)
[2018-03-07] MEDS: SODIUM CHLORIDE 7% 4 ML NEB INH PRN ×2 (06:56→19:20)
[2018-03-07] MEDS: ASPIRIN 81 MG ECTAB PO SCH (09:12)
[2018-03-07] MEDS: PANTOprazole SOD 40 MG TAB PO SCH (09:12)
[2018-03-07] MEDS: ENOXAPARIN 40 MG/0.4 ML SYR SQ SCH (09:12)
[2018-03-07] MEDS: TOPIRAMATE 100 MG TAB PO SCH ×2 (09:13→20:16)
[2018-03-07] MEDS: CEFUROXIME AXETIL 500 MG TAB PO SCH ×2 (09:13→20:15)
[2018-03-07] MEDS: POTASSIUM CHLORIDE 20 MEQ TABCR PO SCH ×2 (09:13→20:15)
[2018-03-07] MEDS: ISOSORBIDE MONONITRATE 60 MG TABCR PO SCH (09:14)
[2018-03-07] MEDS: BuPROPion SR 100 MG TABCR PO SCH ×2 (09:14→20:17)
[2018-03-07] MEDS: METOPROLOL TARTRATE 25 MG TAB PO SCH ×2 (09:15→20:19)
[2018-03-07] MEDS: MULTIVITAMIN TAB PO SCH (09:16)
[2018-03-07] MEDS: FUROSEMIDE INJ 100 MG in DEXTROSE 5% 100ML 90 ML IV SCH ×3 (09:26→20:14)
--- NOTE | 2018-03-07 11:39 | Cardiology Follow-Up ---
Subjective General Date of Service: Mar 07, 2018. Chief Complaint: SOB; CHF Pt evaluation today including: conversation w/ patient, physical exam History of Present Illness The patient is a 62 year old female seen in follow up. Patient feeling well. Still swollen. Allergies Coded Allergies: Amitriptyline (Verified Allergy, Unknown, `, 01/15/18) Gabapentin (Verified Allergy, Unknown, `, 01/15/18) Metformin (Verified Allergy, Unknown, `, 01/15/18) Penicillins (Verified Allergy, Unknown, `, 01/15/18) Pseudoephedrine (Verified Allergy, Unknown, `, 01/15/18) Tetracycline (Verified Allergy, Unknown, `, 01/15/18) Social History Smoking Status: Never Smoker Hx Tobacco Use In Past Year?: No Hx Alcohol Use - Type And Amou: No Hx Substance Use - Type And Am: No Problem List Medical Problems: (1) COPD exacerbation Status: Acute (2) Fluid overload Status: Acute (3) Hypoxia Status: Acute (4) Left leg cellulitis Status: Acute (5) Obesity Status: Acute (6) Respiratory distress Status: Acute (7) Rib pain on right side Status: Acute (8) Shortness of breath Status: Acute (9) SOB (shortness of breath) Status: Acute (10) Tracheostomy present Status: Acute Physical Exam Vital Signs Last Vital Signs Documentation Date Time Temp Pulse Resp B/P (MAP) Pulse Ox O2 Delivery O2 Flow Rate FiO2 03/07/18 10:50 36.7 72 20 148/80 (102) 96 Trach Collar 28 03/07/18 07:33 6.0 Physical Exam Constitutional: General Apperance: obese Level of Distress: NAD, chronically ill Psychiatric: Mental Status: active & alert Orientation: to time, to place, to person Head: normocephalic Neck: supple Lungs: Auscultation: deminished air movement, decreased breath sounds Cardiovascular: Heart Auscultation: RRR, no murmurs Extremities: edema (2-3+ indurated edema b/l) Neurologic: Gait & Station: pertinent finding (no focal deficits ) Assessment and Plan Assessment and Plan IMPRESSION: 62 year old female 1. Acute on chronic right sided heart failure with underlying hypoventilation syndrome/obesity/COPD -still with volume overload. 2. S/P tracheostomy in 2007 3. CKD - at baseline 4. Hypertension - controlled 5. Morbid obesity PLAN: Increase furosemide infusion to 20 mg/hr. Increase KCL to 20 meq BID. Laboratory Results Last 24 Hours Test 03/06/18 16:32 03/06/18 21:26 03/07/18 05:30 03/07/18 06:41 Bedside Glucose 170 mg/dl 158 mg/dl 134 mg/dl White Blood Count 7.92 K/uL Red Blood Count 3.75 M/uL Hemoglobin 10.7 g/dL Hematocrit 34.9 % Mean Corpuscular Volume 93.1 fL Mean Corpuscular Hemoglobin 28.5 pg Mean Corpuscular Hemoglobin Concent 30.7 g/dl RDW Standard Deviation 53.0 fL RDW Coefficient of Variation 15.6 % Platelet Count 220 K/uL Mean Platelet Volume 9.3 fL Sodium Level 138 mmol/L Potassium Level 3.6 mmol/L Chloride Level 103 mmol/L Carbon Dioxide Level 33 mmol/L Anion Gap 2.0 mmol/L Blood Urea Nitrogen 26 mg/dl Creatinine 1.39 mg/dl Est Creatinine Clear Calc Drug Dose 68.9 ml/min Estimated GFR () 47.3 Estimated GFR (Non- 40.8 BUN/Creatinine Ratio 18.7 Random Glucose 134 mg/dl Calcium Level 8.9 mg/dl Magnesium Level 2.4 mg/dl Test 03/07/18 10:23 Bedside Glucose 183 mg/dl
--- NOTE | 2018-03-07 11:53 | Progress Note ---
Internal Med Progress Note Date of Service: Mar 07, 2018. Provider Documentation: SUBJECTIVE: The patient was seen and examined in the telemetry unit. She was admitted with increasing shortness of breath secondary to acute and chronic right heart failure. She has been on Lasix drip now. She has been feeling reasonably better since admission. Denies to have any acute symptoms at this time OBJECTIVE: Vital Signs-as noted below Exam: General-minimal distress at rest, out of bed when a chair Eyes-normal ENT-normal Neck-supple Lungs-decreased breath sounds bilaterally likely due to thick chest wall Heart-S1-S2, distant heart sounds Abdomen-distended, soft, difficult to feel for any organs Extremities-chronic bilateral edema 1+ Neuro-alert, awake, oriented 3 Generally weak but no focal neuro deficit. Lab data as noted below. ASSESSMENT & PLAN: Acute on chronic right sided heart failure with underlying hypoventilation syndrome/obesity/COPD Chest x-ray demonstrated cardiomegaly and pulmonary vascular congestion. Echo Dec 2017 demonstrated normal LV systolic function, LV diastolic dysfunction , decreased RV systolic function. Acute on chronic left ventricular diastolic heart failure + acute on chronic right ventricular systolic heart failure. Cardiology consulted.-appreciate Input Continue IV Lasix drip CAD Serum troponin in ED normal. No anginal symptoms. Continue aspirin, metoprolol, nitrates, statin. HYPERTENSION Blood pressure this morning 144/73. Continue metoprolol and nitrates. SLEEP APNEA / OBESITY HYPOVENTILATION SYNDROME S/P tracheostomy. Continue supplemental oxygen. Maintaining saturation well PULMONARY SECRETIONS Patient experiencing thick pulmonary secretions which she attributes to diuretic therapy. Patient has tried guaifenesin in the past without benefit. Improved with saline nebs. CKD III Nephrology consulted. Serum creatinine today = 1.47. Creatinine is improving DM TYPE 2 Fairly well controlled. Hemoglobin A1c 8.5 on 01/15/18 and 7.5 on 03/01/18. Pharmacy consulted for glycemic management. Fasting blood sugar this morning 129. Continue insulin pump. MORBID OBESITY Weight 189 kg. BMI of 76. AHA / diabetic diet. PT/OT evaluation UTI (present on admission) Urine culture grew E. coli, resistant to ampicillin, cefazolin, ciprofloxacin, levofloxacin, TMP/sulfa. Patient has noted some chills and possible dysuria. Reported penicillin allergy, but has received cephalosporins recently without difficulty. Received Rx with ceftriaxone; transitioned to oral therapy with cefuroxime per sensitivities. Will continue for 7 to 10 days CONSTIPATION Bowel regimen as ordered. MOLINA CATHETER Remove when able. VTE PROPHYLAXIS SQ enoxaparin. Ambulate as able. DISPOSITION To be determined. May need skilled care or rehab. Family Medicine follow-up with Dr. Leos. Cardiology follow-up with [facility]. PT/OT Vital Signs: Date Time Temp Pulse Resp B/P (MAP) Pulse Ox O2 Delivery O2 Flow Rate FiO2 03/07/18 10:50 36.7 72 20 148/80 (102) 96 Trach Collar 28 03/07/18 08:00 99 Trach Collar 03/07/18 07:33 36.3 75 20 143/79 (100) 99 Trach Collar 6.0 03/07/18 06:56 73 20 96 Trach Collar 6.0 28 03/07/18 04:06 Trach Collar 6.0 28 03/07/18 03:43 36.5 74 20 124/59 (80) 97 Humidified Oxygen 6.0 Trach Collar 03/07/18 03:26 75 21 96 Trach Collar 6.0 28 03/07/18 00:00 Trach Collar 6.0 28 03/06/18 23:45 36.7 79 18 106/52 (70) 95 Humidified Oxygen 6.0 Trach Collar 03/06/18 20:00 94 Trach Collar 6.0 28 03/06/18 19:33 36.9 81 20 162/82 (108) 96 Trach Collar 6.0 03/06/18 19:05 74 20 95 Trach Collar 6.0 28 03/06/18 17:00 95 Trach Collar 6.0 28 03/06/18 16:30 36.7 73 20 144/79 (100) 97 Trach Collar 6.0 03/06/18 15:18 71 20 97 Trach Collar 6.0 28 03/06/18 12:00 Trach Collar 6.0 Lab Results: Results Past 24 Hours Test 03/06/18 16:32 03/06/18 21:26 03/07/18 05:30 03/07/18 06:41 Range/Units Bedside Glucose 170 158 134 70-90 mg/dl White Blood Count 7.92 4.8-10.8 K/uL Red Blood Count 3.75 4.2-5.4 M/uL Hemoglobin 10.7 12.0-16.0 g/dL Hematocrit 34.9 37-47 % Mean Corpuscular Volume 93.1 80-100 fL Mean Corpuscular Hemoglobin 28.5 25-34 pg Mean Corpuscular Hemoglobin Concent 30.7 32-36 g/dl RDW Standard Deviation 53.0 36.4-46.3 fL RDW Coefficient of Variation 15.6 11.5-14.5 % Platelet Count 220 130-400 K/uL Mean Platelet Volume 9.3 7.4-10.4 fL Sodium Level 138 136-145 mmol/L Potassium Level 3.6 3.5-5.1 mmol/L Chloride Level 103 98-107 mmol/L Carbon Dioxide Level 33 21-32 mmol/L Anion Gap 2.0 3-11 mmol/L Blood Urea Nitrogen 26 7-18 mg/dl Creatinine 1.39 0.60-1.20 mg/dl Est Creatinine Clear Calc Drug Dose 68.9 ml/min Estimated GFR () 47.3 Estimated GFR (Non- 40.8 BUN/Creatinine Ratio 18.7 10-20 Random Glucose 134 70-99 mg/dl Calcium Level 8.9 8.5-10.1 mg/dl Magnesium Level 2.4 1.8-2.4 mg/dl Test 03/07/18 10:23 Range/Units Bedside Glucose 183 70-90 mg/dl
[2018-03-07] MEDS: ATORVASTATIN 20 MG TAB PO SCH (20:15)
[2018-03-07] MEDS: MONTELUKAST SOD 10 MG TAB PO SCH (20:17)
[2018-03-08] VITALS (11 sets, daily range): BP systolic 130–142; BP diastolic 65–89; PULSE 68–98; TEMP 36.6–36.9; O2SAT 91–98
[2018-03-08] MEDS: ALBUT/IPRATROP 3MG/0.5MG NEB 3 ML VIAL INH PRN ×5 (01:27→19:14)
[2018-03-08] MEDS: FUROSEMIDE INJ 100 MG in DEXTROSE 5% 100ML 90 ML IV SCH ×5 (01:54→21:10)
[2018-03-08] MEDS: LEVOTHYROXINE 200 MCG TAB PO SCH (06:26)
[2018-03-08] MEDS: SODIUM CHLORIDE 7% 4 ML NEB INH PRN ×2 (06:53→19:14)
[2018-03-08 07:03] LABS: CALCIUM 8.9 mg/dl (8.5-10.1); CREATININE 1.33 mg/dl (0.60-1.20); POTASSIUM 3.5 mmol/L (3.5-5.1)
[2018-03-08] MEDS: CEFUROXIME AXETIL 500 MG TAB PO SCH ×2 (08:04→21:10)
[2018-03-08] MEDS: PANTOprazole SOD 40 MG TAB PO SCH (08:04)
[2018-03-08] MEDS: TOPIRAMATE 100 MG TAB PO SCH ×2 (08:05→21:07)
[2018-03-08] MEDS: MULTIVITAMIN TAB PO SCH (08:05)
[2018-03-08] MEDS: POTASSIUM CHLORIDE 20 MEQ TABCR PO SCH ×2 (08:05→21:09)
[2018-03-08] MEDS: ASPIRIN 81 MG ECTAB PO SCH (08:05)
[2018-03-08] MEDS: ENOXAPARIN 40 MG/0.4 ML SYR SQ SCH (08:07)
[2018-03-08] MEDS: METOPROLOL TARTRATE 25 MG TAB PO SCH ×2 (08:07→21:08)
[2018-03-08] MEDS: ISOSORBIDE MONONITRATE 60 MG TABCR PO SCH (08:08)
[2018-03-08] MEDS: BuPROPion SR 100 MG TABCR PO SCH ×2 (08:08→21:09)
[2018-03-08] MEDS: ERGOCALCIFEROL 50,000 INTER.UNIT CAP PO SCH (08:09)
[2018-03-08] MEDS: FLUCONAZOLE 100 MG TAB PO SCH (08:09)
--- NOTE | 2018-03-08 12:29 | Cardiology Follow-Up ---
Subjective General Date of Service: Mar 08, 2018. Chief Complaint: SOB; CHF Pt evaluation today including: conversation w/ patient, physical exam History of Present Illness The patient is a 62 year old female seen in cardiology follow-up. Patient is eating lunch. She is accompanied by her daughter. Her furosemide infusion dose had been increased yesterday to 20 mg/h, with subsequent increase in diuretic effect. 5.2 L of urine output was noted yesterday with negative fluid balance of 3.7 L. She is negative by 3 L thus far today. Blood pressure is stable. Electrolyte levels are stable with mild hypokalemia at 3.5 mmol/L. Allergies Coded Allergies: Amitriptyline (Verified Allergy, Unknown, `, 01/15/18) Gabapentin (Verified Allergy, Unknown, `, 01/15/18) Metformin (Verified Allergy, Unknown, `, 01/15/18) Penicillins (Verified Allergy, Unknown, `, 01/15/18) Pseudoephedrine (Verified Allergy, Unknown, `, 01/15/18) Tetracycline (Verified Allergy, Unknown, `, 01/15/18) Social History Smoking Status: Never Smoker Hx Tobacco Use In Past Year?: No Hx Alcohol Use - Type And Amou: No Hx Substance Use - Type And Am: No Problem List Medical Problems: (1) COPD exacerbation Status: Acute (2) Fluid overload Status: Acute (3) Hypoxia Status: Acute (4) Left leg cellulitis Status: Acute (5) Obesity Status: Acute (6) Respiratory distress Status: Acute (7) Rib pain on right side Status: Acute (8) Shortness of breath Status: Acute (9) SOB (shortness of breath) Status: Acute (10) Tracheostomy present Status: Acute Physical Exam Vital Signs Last Vital Signs Documentation Date Time Temp Pulse Resp B/P (MAP) Pulse Ox O2 Delivery O2 Flow Rate FiO2 03/08/18 11:17 77 20 97 Trach Collar 6.0 28 03/08/18 08:00 36.6 131/69 (89) Physical Exam Constitutional: General Apperance: obese Level of Distress: NAD, chronically ill Psychiatric: Mental Status: active & alert Orientation: to time, to place, to person Head: normocephalic Neck: supple Lungs: Auscultation: deminished air movement, decreased breath sounds Cardiovascular: Heart Auscultation: RRR, no murmurs Extremities: edema (2-3+ indurated edema b/l) Neurologic: Gait & Station: pertinent finding (no focal deficits ) Assessment and Plan Assessment and Plan IMPRESSION: 62 year old female 1. Acute on chronic right sided heart failure with underlying hypoventilation syndrome/obesity/COPD -still with volume overload. 2. S/P tracheostomy in 2007 3. CKD - at baseline 4. Hypertension - controlled 5. Morbid obesity PLAN: Standing scale weight trending down and intake and output trend is favorable. Continue furosemide infusion 20 mg/h. Add spironolactone 25 mg daily to help with further diuresis and to help keep her potassium up. Continue potassium chloride 20 mEq p.o. twice daily. Would recommend checking renal function panel in 48 hours on 03/10/18. Continue present treatment otherwise. Laboratory Results Last 24 Hours Test 03/07/18 16:28 03/07/18 19:54 03/08/18 05:57 03/08/18 06:27 Bedside Glucose 127 mg/dl 137 mg/dl 139 mg/dl Sodium Level 139 mmol/L Potassium Level 3.5 mmol/L Chloride Level 101 mmol/L Carbon Dioxide Level 35 mmol/L Anion Gap 3.0 mmol/L Blood Urea Nitrogen 28 mg/dl Creatinine 1.33 mg/dl Est Creatinine Clear Calc Drug Dose 71.0 ml/min Estimated GFR () 49.9 Estimated GFR (Non- 43.0 BUN/Creatinine Ratio 20.7 Random Glucose 137 mg/dl Calcium Level 8.9 mg/dl
[2018-03-08] MEDS ORDERED: SPIRONOLACTONE 25 MG TAB PO ONE (12:30)
--- NOTE | 2018-03-08 15:02 | Progress Note ---
Internal Med Progress Note Date of Service: Mar 08, 2018. Provider Documentation: SUBJECTIVE: The patient was seen and examined in the telemetry unit. She was admitted with increasing shortness of breath secondary to acute and chronic right heart failure. She has been on Lasix drip now. She has been feeling reasonably better since admission. Denies to have any acute symptoms at this time Clinically a lot better -OOB in a chair OBJECTIVE: Vital Signs-as noted below Exam: General-minimal distress at rest, out of bed in a chair Eyes-normal ENT-normal Neck-supple Lungs-decreased breath sounds bilaterally likely due to thick chest wall Heart-S1-S2, distant heart sounds Abdomen-distended, soft, difficult to feel for any organs Extremities-chronic bilateral edema 1+ Neuro-alert, awake, oriented 3 Generally weak but no focal neuro deficit. Lab data as noted below. ASSESSMENT & PLAN: Acute on chronic right sided heart failure with underlying hypoventilation syndrome/obesity/COPD Chest x-ray demonstrated cardiomegaly and pulmonary vascular congestion. Echo Dec 2017 demonstrated normal LV systolic function, LV diastolic dysfunction , decreased RV systolic function. Acute on chronic left ventricular diastolic heart failure + acute on chronic right ventricular systolic heart failure. Cardiology consulted.-appreciate Input Continue IV Lasix drip-continue for the nect 48 hours Spirolactone added Check PRP on 03/10/18 CAD Serum troponin in ED normal. No anginal symptoms. Continue aspirin, metoprolol, nitrates, statin. HYPERTENSION Blood pressure this morning 144/73. Continue metoprolol and nitrates. SLEEP APNEA / OBESITY HYPOVENTILATION SYNDROME S/P tracheostomy. Continue supplemental oxygen. Maintaining saturation well PULMONARY SECRETIONS Patient experiencing thick pulmonary secretions which she attributes to diuretic therapy. Patient has tried guaifenesin in the past without benefit. Improved with saline nebs. CKD III Nephrology consulted. Serum creatinine today = 1.47. Creatinine is improving Monitor PRP DM TYPE 2 Fairly well controlled. Hemoglobin A1c 8.5 on 01/15/18 and 7.5 on 03/01/18. Pharmacy consulted for glycemic management. Fasting blood sugar this morning 129. Continue insulin pump. MORBID OBESITY Weight 189 kg. BMI of 76. AHA / diabetic diet. PT/OT evaluation UTI (present on admission) Urine culture grew E. coli, resistant to ampicillin, cefazolin, ciprofloxacin, levofloxacin, TMP/sulfa. Patient has noted some chills and possible dysuria. Reported penicillin allergy, but has received cephalosporins recently without difficulty. Received Rx with ceftriaxone; transitioned to oral therapy with cefuroxime per sensitivities. Will continue for 7 to 10 days CONSTIPATION Bowel regimen as ordered. MOLINA CATHETER Remove when able. VTE PROPHYLAXIS SQ enoxaparin. Ambulate as able. DISPOSITION To be determined. May need skilled care or rehab. Family Medicine follow-up with Dr. Leos. Cardiology follow-up with [facility]. PT/OT Vital Signs: Date Time Temp Pulse Resp B/P (MAP) Pulse Ox O2 Delivery O2 Flow Rate FiO2 03/08/18 12:30 36.6 79 18 130/89 (103) 96 Trach Collar 03/08/18 12:00 Trach Collar 6.0 28 03/08/18 11:17 77 20 97 Trach Collar 6.0 28 03/08/18 08:00 Trach Collar 6.0 28 03/08/18 08:00 36.6 84 16 131/69 (89) 92 Trach Collar 03/08/18 06:54 75 20 91 Trach Collar 6.0 28 03/08/18 04:05 Trach Collar 6.0 28 03/08/18 03:40 36.7 98 18 142/69 (93) 97 Humidified Oxygen 6.0 Trach Collar 03/08/18 01:27 68 20 98 Trach Collar 6.0 28 03/08/18 00:00 Trach Collar 6.0 28 03/07/18 23:45 36.7 81 22 146/79 (101) 96 Humidified Oxygen 6.0 Trach Collar 03/07/18 20:00 95 Trach Collar 6.0 28 03/07/18 19:21 80 20 95 Trach Collar 6.0 28 03/07/18 19:00 36.8 79 19 111/56 (74) 97 03/07/18 16:00 96 Room Air 6.0 28 03/07/18 15:41 37.0 74 18 148/82 (104) 96 Room Air 03/07/18 15:41 76 20 96 Trach Collar 6.0 28 Lab Results: Results Past 24 Hours Test 03/07/18 16:28 03/07/18 19:54 03/08/18 05:57 03/08/18 06:27 Range/Units Bedside Glucose 127 137 139 70-90 mg/dl Sodium Level 139 136-145 mmol/L Potassium Level 3.5 3.5-5.1 mmol/L Chloride Level 101 98-107 mmol/L Carbon Dioxide Level 35 21-32 mmol/L Anion Gap 3.0 3-11 mmol/L Blood Urea Nitrogen 28 7-18 mg/dl Creatinine 1.33 0.60-1.20 mg/dl Est Creatinine Clear Calc Drug Dose 71.0 ml/min Estimated GFR () 49.9 Estimated GFR (Non- 43.0 BUN/Creatinine Ratio 20.7 10-20 Random Glucose 137 70-99 mg/dl Calcium Level 8.9 8.5-10.1 mg/dl Test 03/08/18 11:25 Range/Units Bedside Glucose 176 70-90 mg/dl
[2018-03-08] MEDS: ACETAMINOPHEN 325 MG TAB PO PRN (16:04)
[2018-03-08] MEDS: MONTELUKAST SOD 10 MG TAB PO SCH (21:07)
[2018-03-08] MEDS: ATORVASTATIN 20 MG TAB PO SCH (21:08)
[2018-03-09] VITALS (10 sets, daily range): BP systolic 91–149; BP diastolic 55–73; PULSE 79–93; TEMP 36.5–37.1; O2SAT 93–98
[2018-03-09] MEDS: FUROSEMIDE INJ 100 MG in DEXTROSE 5% 100ML 90 ML IV SCH ×5 (02:15→21:53)
[2018-03-09] MEDS: LEVOTHYROXINE 200 MCG TAB PO SCH (06:30)
[2018-03-09] MEDS: ALBUT/IPRATROP 3MG/0.5MG NEB 3 ML VIAL INH PRN ×4 (06:50→19:25)
[2018-03-09] MEDS: SODIUM CHLORIDE 7% 4 ML NEB INH PRN ×2 (06:50→19:25)
[2018-03-09] MEDS ORDERED: BISACODYL 10 MG SUPP PR STA (08:30)
[2018-03-09] MEDS ORDERED: SOAP SUDS ENEMA PR PRN (08:45)
[2018-03-09] MEDS: TOPIRAMATE 100 MG TAB PO SCH ×2 (09:31→21:28)
[2018-03-09] MEDS: MULTIVITAMIN TAB PO SCH (09:31)
[2018-03-09] MEDS: ISOSORBIDE MONONITRATE 60 MG TABCR PO SCH (09:31)
[2018-03-09] MEDS: BuPROPion SR 100 MG TABCR PO SCH ×2 (09:31→21:27)
[2018-03-09] MEDS: ASPIRIN 81 MG ECTAB PO SCH (09:32)
[2018-03-09] MEDS: CEFUROXIME AXETIL 500 MG TAB PO SCH ×2 (09:32→21:26)
[2018-03-09] MEDS: PANTOprazole SOD 40 MG TAB PO SCH (09:32)
[2018-03-09] MEDS: METOPROLOL TARTRATE 25 MG TAB PO SCH ×2 (09:32→21:25)
[2018-03-09] MEDS: POTASSIUM CHLORIDE 20 MEQ TABCR PO SCH ×2 (09:33→21:26)
[2018-03-09] MEDS: ENOXAPARIN 40 MG/0.4 ML SYR SQ SCH (09:33)
[2018-03-09] MEDS: SPIRONOLACTONE 25 MG TAB PO SCH (09:33)
--- NOTE | 2018-03-09 10:44 | Progress Note ---
Internal Med Progress Note Date of Service: Mar 09, 2018. Provider Documentation: SUBJECTIVE: The patient was seen and examined in the telemetry unit. She was admitted with increasing shortness of breath secondary to acute and chronic right heart failure. She has been on Lasix drip now. She has been feeling reasonably better since admission. Denies to have any acute symptoms at this time Clinically a lot better -OOB in a chair Bowel is not moved for the last 2 days OBJECTIVE: Vital Signs-as noted below Exam: General-minimal distress at rest, out of bed in a chair Eyes-normal ENT-normal Neck-supple Lungs-decreased breath sounds bilaterally likely due to thick chest wall Heart-S1-S2, distant heart sounds Abdomen-distended, soft, difficult to feel for any organs Extremities-chronic bilateral edema 1+-getting better Neuro-alert, awake, oriented 3 Generally weak but no focal neuro deficit. Lab data as noted below. ASSESSMENT & PLAN: Acute on chronic right sided heart failure with underlying hypoventilation syndrome/obesity/COPD Chest x-ray demonstrated cardiomegaly and pulmonary vascular congestion. Echo Dec 2017 demonstrated normal LV systolic function, LV diastolic dysfunction , decreased RV systolic function. Acute on chronic left ventricular diastolic heart failure + acute on chronic right ventricular systolic heart failure. Cardiology consulted.-appreciate Input Continue IV Lasix drip-continue for the nect 48 hours Spirolactone added Check PRP on 03/10/18 Patient requires Hospital Bed to remain elevated above 30 degrees and requires frequent repositioning CAD Serum troponin in ED normal. No anginal symptoms. Continue aspirin, metoprolol, nitrates, statin. HYPERTENSION Blood pressure this morning 144/73. Continue metoprolol and nitrates. SLEEP APNEA / OBESITY HYPOVENTILATION SYNDROME S/P tracheostomy. Continue supplemental oxygen. Maintaining saturation well PULMONARY SECRETIONS Patient experiencing thick pulmonary secretions which she attributes to diuretic therapy. Patient has tried guaifenesin in the past without benefit. Improved with saline nebs. CKD III Nephrology consulted. Serum creatinine today = 1.47. Creatinine is improving Monitor PRP DM TYPE 2 Fairly well controlled. Hemoglobin A1c 8.5 on 01/15/18 and 7.5 on 03/01/18. Pharmacy consulted for glycemic management. Fasting blood sugar this morning 129. Continue insulin pump. MORBID OBESITY Weight 189 kg. BMI of 76. AHA / diabetic diet. PT/OT evaluation UTI (present on admission) Urine culture grew E. coli, resistant to ampicillin, cefazolin, ciprofloxacin, levofloxacin, TMP/sulfa. Patient has noted some chills and possible dysuria. Reported penicillin allergy, but has received cephalosporins recently without difficulty. Received Rx with ceftriaxone; transitioned to oral therapy with cefuroxime per sensitivities. Will continue for 7 to 10 days CONSTIPATION Bowel regimen as ordered. MOLINA CATHETER Remove when able. VTE PROPHYLAXIS SQ enoxaparin. Ambulate as able. DISPOSITION To be determined. May need skilled care or rehab. Family Medicine follow-up with Dr. Leos. Cardiology follow[facility] with [facility]. PT/OT Vital Signs: Date Time Temp Pulse Resp B/P (MAP) Pulse Ox O2 Delivery O2 Flow Rate FiO2 03/09/18 07:39 36.8 83 18 110/58 (75) 95 Trach Collar 6.0 03/09/18 06:50 81 20 96 Trach Collar 8.0 28 03/09/18 04:45 36.8 79 22 128/62 (84) 96 Trach Collar 28 03/09/18 04:00 Trach Collar 28 03/09/18 00:00 Trach Collar 28 03/08/18 23:40 36.9 81 20 132/65 (87) 97 Humidified Oxygen 6.0 Trach Collar 03/08/18 20:00 Trach Collar 6.0 28 03/08/18 19:28 36.9 85 24 134/66 (88) 96 03/08/18 19:14 88 20 96 Trach Collar 8.0 28 03/08/18 16:00 Trach Collar 6.0 28 03/08/18 15:53 36.9 95 24 131/65 (87) 93 03/08/18 15:13 86 20 95 Trach Collar 6.0 28 03/08/18 12:30 36.6 79 18 130/89 (103) 96 Trach Collar 03/08/18 12:00 Trach Collar 6.0 28 03/08/18 11:17 77 20 97 Trach Collar 6.0 28 Lab Results: Results Past 24 Hours Test 03/08/18 11:25 03/08/18 16:18 03/08/18 20:02 03/09/18 06:56 Range/Units Bedside Glucose 176 214 212 216 70-90 mg/dl
--- NOTE | 2018-03-09 15:09 | Nephrology Progress Note ---
Nephrology Progress Note Date of Service: Mar 09, 2018. Subjective 62 yo female with ckd stage 3, right sided heart failure with trach and fluid overloaded. on iv diuretics. accompanied by daughter. states that she feels as though she is clinically better. patient is continuing to do well with diuretic therapy. she is concerned about constipation and is currently trying to have a bm. trach secretions ok today. Objective Date Time Temp Pulse Resp B/P (MAP) Pulse Ox O2 Delivery O2 Flow Rate FiO2 03/09/18 12:00 Trach Collar 28 03/09/18 11:29 36.5 85 20 149/71 (97) 95 Trach Collar 6.0 03/09/18 11:10 83 20 96 Trach Collar 8.0 28 03/09/18 08:00 Trach Collar 28 03/09/18 07:39 36.8 83 18 110/58 (75) 95 Trach Collar 6.0 03/09/18 06:50 81 20 96 Trach Collar 8.0 28 03/09/18 04:45 36.8 79 22 128/62 (84) 96 Trach Collar 28 03/09/18 04:00 Trach Collar 28 03/09/18 00:00 Trach Collar 28 03/08/18 23:40 36.9 81 20 132/65 (87) 97 Humidified Oxygen 6.0 Trach Collar 03/08/18 20:00 Trach Collar 6.0 28 03/08/18 19:28 36.9 85 24 134/66 (88) 96 03/08/18 19:14 88 20 96 Trach Collar 8.0 28 03/08/18 16:00 Trach Collar 6.0 28 03/08/18 15:53 36.9 95 24 131/65 (87) 93 03/08/18 15:13 86 20 95 Trach Collar 6.0 28 Physical Exam: General-aaox3, morbid obesity Eyes-no scleral icterus ENT-mmm Neck-supple, +trach Lungs-decreased at bases Heart-regular +distant heart sounds Abdomen-+pannus, bs+, soft, nt Extremities-+2 non-pitting edema Neuro-nonfocal Current Inpatient Medications Medications (Trade) Dose Ordered Sig/Fatoumata Route Start Time Stop Time Status Last Admin Dose Admin Aspirin (Ecotrin Tab) 81 mg DAILY PO 02/28/18 09:00 03/30/18 08:59 4/19/18 09:32 81 MG Atorvastatin Calcium (Lipitor Tab) 20 mg QPM PO 02/27/18 21:00 03/29/18 20:59 03/08/18 21:08 20 MG Bupropion HCl (Wellbutrin-Sr Tab) 100 mg QAM PO 02/28/18 09:00 03/30/18 08:59 03/09/18 09:31 100 MG Bupropion HCl (Wellbutrin-Sr Tab) 200 mg HS PO 02/27/18 21:00 03/29/18 20:59 03/08/18 21:09 200 MG Folic Acid (Folvite Tab) 1 mg DAILY PO 02/28/18 09:00 03/30/18 08:59 03/09/18 09:32 1 MG Insulin Human Lispro (HumaLOG INSULIN PUMP) 1 ea ACHS N/A 02/27/18 21:00 03/29/18 20:59 03/09/18 11:00 1 EA Isosorbide Mononitrate (Imdur Ext Rel Tab) 60 mg DAILY PO 02/28/18 09:00 03/30/18 08:59 03/09/18 09:31 60 MG Metoprolol Tartrate (Lopressor Tab) 12.5 mg BID PO 02/27/18 21:00 03/29/18 20:59 03/09/18 09:32 12.5 MG Montelukast Sodium (Singulair Tab) 10 mg HS PO 02/27/18 21:00 03/29/18 20:59 03/08/18 21:07 10 MG Pantoprazole Sodium (Protonix Tab) 40 mg DAILY PO 02/28/18 09:00 03/30/18 08:59 03/09/18 09:32 40 MG Topiramate (Topamax Tab) 100 mg QAM PO 02/28/18 09:00 03/30/18 08:59 03/09/18 09:31 100 MG Topiramate (Topamax Tab) 200 mg HS PO 02/27/18 21:00 03/29/18 20:59 03/08/18 21:07 200 MG Insulin Human Lispro (humaLOG) SLIDING SCALE PRN PRN SC 02/27/18 20:00 03/29/18 19:59 03/03/18 04:06 200 UNITS Glucose (Glucose 40% Gel) 15-30 GRAMS 15 GRAMS... UD PRN PO 02/27/18 20:00 03/29/18 19:59 Glucose (Glucose Chew Tab) 4-8 Tablets 4 Tabl... UD PRN PO 02/27/18 20:00 03/29/18 19:59 Dextrose (Dextrose 50% 50ML Syringe) 25-50ML OF 50% DW IV FOR... UD PRN IV 02/27/18 20:00 03/29/18 19:59 Glucagon (Glucagon Inj) 1 mg UD PRN SQ 02/27/18 20:00 03/29/18 19:59 Albuterol/ Ipratropium (Duoneb) 3 ml Q4R PRN INH 02/27/18 23:30 03/29/18 23:29 03/09/18 11:09 3 ML Levothyroxine Sodium (Synthroid Tab) 200 mcg DAILYBB PO 02/28/18 06:00 03/30/18 05:59 03/09/18 06:30 200 MCG Enoxaparin Sodium (Lovenox Inj) 40 mg QAM SQ 02/28/18 09:00 03/30/18 08:59 03/09/18 09:33 40 MG Tramadol HCl (Ultram Tab) 50 mg BID PRN PO 02/28/18 22:00 03/30/18 21:59 03/07/18 01:13 50 MG Acetaminophen (Tylenol Tab) 650 mg Q6H PRN PO 02/28/18 22:00 03/30/18 21:59 03/08/18 16:04 650 MG Sodium Chloride (Sodium Chloride 7% Neb Solution) 4 ml Q4H PRN INH 03/01/18 14:45 03/31/18 14:44 03/09/18 06:50 4 ML Ondansetron HCl (Zofran Inj) 4 mg Q6H PRN IV 03/02/18 00:15 04/01/18 00:14 03/03/18 06:00 4 MG Fluconazole (Diflucan Tab) 100 mg MoWeFr@0900 PO 03/03/18 09:00 03/13/18 08:59 03/08/18 08:09 100 MG Magnesium Hydroxide (Milk Of Magnesia Susp) 30 ml BID PRN PO 03/04/18 16:30 04/02/18 20:59 Cefuroxime Axetil (Ceftin Tab) 500 mg BID PO 03/05/18 09:00 03/10/18 08:59 03/09/18 09:32 500 MG Multivitamins (Multivitamin Tab) 1 tab QAM PO 03/05/18 09:00 04/04/18 08:59 03/09/18 09:31 1 TAB Ergocalciferol (Vitamin D Cap) 50,000 interunit MoWeFr@0900 PO 03/06/18 09:00 04/05/18 08:59 03/08/18 08:09 50,000 INTERUNIT Furosemide 100 mg/ Dextrose 100 ml @ 20 mls/hr Q5H IV 03/06/18 13:30 04/05/18 13:29 03/09/18 13:40 20 MLS/HR Potassium Chloride (Klor-Con Tab) 20 meq BID PO 03/07/18 21:00 04/06/18 20:59 03/09/18 09:33 20 MEQ Spironolactone (Aldactone Tab) 25 mg QAM PO 03/09/18 09:00 04/08/18 08:59 03/09/18 09:33 25 MG Docusate Sodium (coLACE CAP) 100 mg DAILY PO 03/10/18 09:00 04/09/18 08:59 UNV Last 24 Hours Test 03/08/18 16:18 03/08/18 20:02 03/09/18 06:56 03/09/18 11:15 Bedside Glucose 214 mg/dl 212 mg/dl 216 mg/dl 197 mg/dl Other Studies: 03/08/18 03/09/18 03/10/18 07:59 07:59 07:59 Intake Total 1380 ml 1677 ml 1190 ml Output Total 7200 ml 5120 ml 1250 ml Balance -5820 ml -3443 ml -60 ml Assessment & Plan liane on ckd stage 7-[id number]-likely from the appropriate diuresis. pt is responding well to diuresis. creatinine continuing to hold steady. will continue with current diuretic therapy and follow along. volume status difficult to assess d/t obesity but patient states that she is clinically improved so will continue to monitor for now. This patient was seen and treated with direct collaboration with Dr. Cruz. Thank you for the opportunity to participate in this patient's care. Appreciate the Consult. ATTENDING NOTE: I performed a history and physical examination of the patient, including specifically on history- pt continues to have issues with constipation, on physical exam-decreased breath sounds at bases, distant heart sounds, large pannus, and my impression and plan are CKD-creatinine stable and would continue the current diuretics. weight down over ten kilos. greatly appreciate hospitalist and director of physician practices help. I have discussed the patient's management with Mamta Valladares PA-C, Please refer to above note for the documented findings and plan of care. Austin Cruz DO
--- NOTE | 2018-03-09 16:26 | Cardiology Follow-Up ---
Subjective General Date of Service: Mar 09, 2018. Chief Complaint: SOB; CHF Pt evaluation today including: conversation w/ patient, conversation w/ family , physical exam History of Present Illness The patient is a 62 year old female seen in follow-up. Patient subjectively improved. Her intake and output was negative by 5 L yesterday. No chemistry panel was obtained today as her electrolytes and kidney function have been stable. Her standing scale weight is down to 178 kg having been 183.4 kg on . Allergies Coded Allergies: Amitriptyline (Verified Allergy, Unknown, `, 01/15/18) Gabapentin (Verified Allergy, Unknown, `, 01/15/18) Metformin (Verified Allergy, Unknown, `, 01/15/18) Penicillins (Verified Allergy, Unknown, `, 01/15/18) Pseudoephedrine (Verified Allergy, Unknown, `, 01/15/18) Tetracycline (Verified Allergy, Unknown, `, 01/15/18) Social History Smoking Status: Never Smoker Hx Tobacco Use In Past Year?: No Hx Alcohol Use - Type And Amou: No Hx Substance Use - Type And Am: No Problem List Medical Problems: (1) COPD exacerbation Status: Acute (2) Fluid overload Status: Acute (3) Hypoxia Status: Acute (4) Left leg cellulitis Status: Acute (5) Obesity Status: Acute (6) Respiratory distress Status: Acute (7) Rib pain on right side Status: Acute (8) Shortness of breath Status: Acute (9) SOB (shortness of breath) Status: Acute (10) Tracheostomy present Status: Acute Physical Exam Vital Signs Last Vital Signs Documentation Date Time Temp Pulse Resp B/P (MAP) Pulse Ox O2 Delivery O2 Flow Rate FiO2 03/09/18 15:42 36.9 93 20 130/65 (86) 93 Room Air 03/09/18 15:22 8.0 28 Physical Exam Constitutional: General Apperance: obese Level of Distress: NAD, chronically ill Psychiatric: Mental Status: active & alert Orientation: to time, to place, to person Head: normocephalic Neck: supple Lungs: Auscultation: deminished air movement, decreased breath sounds Cardiovascular: Heart Auscultation: RRR, no murmurs Extremities: edema (2-3+ indurated edema b/l) Neurologic: Gait & Station: pertinent finding (no focal deficits ) Assessment and Plan Assessment and Plan IMPRESSION: 62 year old female 1. Acute on chronic right sided heart failure with underlying hypoventilation syndrome/obesity/COPD -still with volume overload. 2. S/P tracheostomy in 2007 3. CKD - at baseline 4. Hypertension - controlled 5. Morbid obesity PLAN: Continue furosemide infusion at 20 mg/h. Continue spironolactone potassium. During her admission last month, a weight of 159 kg was documented toward the end of her hospital stay. Once this weight was documented as being a built in bed scale weight and once this was a standing scale weight. I am not certain that this was accurate, as she has diuresed very vigorously this hospital stay and her weight is still 178 kg which makes me think that the 159 was inaccurate. Laboratory Results Last 24 Hours Test 03/08/18 20:02 03/09/18 06:56 03/09/18 11:15 Bedside Glucose 212 mg/dl 216 mg/dl 197 mg/dl
[2018-03-09] MEDS: ATORVASTATIN 20 MG TAB PO SCH (21:26)
[2018-03-09] MEDS: MONTELUKAST SOD 10 MG TAB PO SCH (21:27)
[2018-03-10] VITALS (8 sets, daily range): BP systolic 91–138; BP diastolic 46–77; PULSE 72–84; TEMP 36.5–37.1; O2SAT 95–98
[2018-03-10] MEDS: FUROSEMIDE INJ 100 MG in DEXTROSE 5% 100ML 90 ML IV SCH ×2 (03:05→07:47)
[2018-03-10] MEDS: LEVOTHYROXINE 200 MCG TAB PO SCH (05:07)
[2018-03-10 06:45] LABS: CALCIUM 8.8 mg/dl (8.5-10.1); CREATININE 1.34 mg/dl (0.60-1.20); PHOSPHORUS 3.9 mg/dl (2.5-4.9); POTASSIUM 3.5 mmol/L (3.5-5.1)
[2018-03-10] MEDS: ALBUT/IPRATROP 3MG/0.5MG NEB 3 ML VIAL INH PRN ×2 (07:10→11:13)
[2018-03-10] MEDS: TOPIRAMATE 100 MG TAB PO SCH (07:47)
[2018-03-10] MEDS: MULTIVITAMIN TAB PO SCH (07:47)
[2018-03-10] MEDS: METOPROLOL TARTRATE 25 MG TAB PO SCH (07:47)
[2018-03-10] MEDS: ISOSORBIDE MONONITRATE 60 MG TABCR PO SCH (07:47)
[2018-03-10] MEDS: ASPIRIN 81 MG ECTAB PO SCH (07:47)
[2018-03-10] MEDS: ERGOCALCIFEROL 50,000 INTER.UNIT CAP PO SCH (07:47)
[2018-03-10] MEDS: POTASSIUM CHLORIDE 20 MEQ TABCR PO SCH (07:48)
[2018-03-10] MEDS: SPIRONOLACTONE 25 MG TAB PO SCH (07:48)
[2018-03-10] MEDS: PANTOprazole SOD 40 MG TAB PO SCH (07:49)
[2018-03-10] MEDS: FLUCONAZOLE 100 MG TAB PO SCH (07:50)
[2018-03-10] MEDS: ENOXAPARIN 40 MG/0.4 ML SYR SQ SCH (07:50)
[2018-03-10] MEDS: BuPROPion SR 100 MG TABCR PO SCH (07:50)
[2018-03-10] MEDS ORDERED: DOCUSATE SODIUM 100 MG CAP PO SCH (09:00)
--- NOTE | 2018-03-10 10:03 | Cardiology Follow-Up ---
Subjective General Date of Service: Mar 10, 2018. Chief Complaint: SOB; CHF Pt evaluation today including: conversation w/ patient, physical exam History of Present Illness The patient is a 62 year old female seen in follow up. Patient feeling well. I/ O revealed continued diuresis , however urine output has tapered off. Allergies Coded Allergies: Amitriptyline (Verified Allergy, Unknown, `, 01/15/18) Gabapentin (Verified Allergy, Unknown, `, 01/15/18) Metformin (Verified Allergy, Unknown, `, 01/15/18) Penicillins (Verified Allergy, Unknown, `, 01/15/18) Pseudoephedrine (Verified Allergy, Unknown, `, 01/15/18) Tetracycline (Verified Allergy, Unknown, `, 01/15/18) Social History Smoking Status: Never Smoker Hx Tobacco Use In Past Year?: No Hx Alcohol Use - Type And Amou: No Hx Substance Use - Type And Am: No Problem List Medical Problems: (1) COPD exacerbation Status: Acute (2) Fluid overload Status: Acute (3) Hypoxia Status: Acute (4) Left leg cellulitis Status: Acute (5) Obesity Status: Acute (6) Respiratory distress Status: Acute (7) Rib pain on right side Status: Acute (8) Shortness of breath Status: Acute (9) SOB (shortness of breath) Status: Acute (10) Tracheostomy present Status: Acute Physical Exam Vital Signs Last Vital Signs Documentation Date Time Temp Pulse Resp B/P (MAP) Pulse Ox O2 Delivery O2 Flow Rate FiO2 03/10/18 07:55 36.5 74 24 105/59 (74) 95 Trach Collar 03/10/18 07:49 6.0 22 Physical Exam Constitutional: General Apperance: obese Level of Distress: NAD, chronically ill Psychiatric: Mental Status: active & alert Orientation: to time, to place, to person Head: normocephalic Neck: supple Lungs: Auscultation: deminished air movement, decreased breath sounds Cardiovascular: Heart Auscultation: RRR, no murmurs Extremities: edema (edema, improved) Neurologic: Gait & Station: pertinent finding (no focal deficits ) Assessment and Plan Assessment and Plan IMPRESSION: 62 year old female 1. Acute on chronic right sided heart failure with underlying hypoventilation syndrome/obesity/COPD -still with volume overload. 2. S/P tracheostomy in 2007 3. CKD - at baseline 4. Hypertension - controlled 5. Morbid obesity PLAN: Dc furosemide infusion. Change to torsemide 20 mg BID at 7 am, 1400 (or equivalent to pts home schedule at home after she first wakes up and after afternoon meal) Reduce KCL to 20 meq one time per day. Continue spironolactone. Stable for DC. I have requested follow up with me or Rainer Kennedy at [facility] within 1 week, scheduling working on visit. Laboratory Results Last 24 Hours Test 03/09/18 11:15 03/09/18 16:33 03/09/18 19:54 03/10/18 05:34 Bedside Glucose 197 mg/dl 198 mg/dl 245 mg/dl Sodium Level 138 mmol/L Potassium Level 3.5 mmol/L Chloride Level 99 mmol/L Carbon Dioxide Level 35 mmol/L Anion Gap 4.0 mmol/L Blood Urea Nitrogen 27 mg/dl Creatinine 1.34 mg/dl Est Creatinine Clear Calc Drug Dose 70.3 ml/min Estimated GFR () 49.4 Estimated GFR (Non- 42.7 BUN/Creatinine Ratio 20.0 Random Glucose 170 mg/dl Calcium Level 8.8 mg/dl Phosphorus Level 3.9 mg/dl Magnesium Level 2.3 mg/dl Test 03/10/18 07:02 Bedside Glucose 187 mg/dl
--- NOTE | 2018-03-10 11:26 | Progress Note ---
Internal Med Progress Note Date of Service: Mar 10, 2018. Provider Documentation: SUBJECTIVE: The patient was seen and examined in the telemetry unit. She was admitted with increasing shortness of breath secondary to acute and chronic right heart failure. She has been on Lasix drip now. She has been feeling reasonably better since admission. Denies to have any acute symptoms at this time Clinically a lot better -OOB in a chair Bowel is not moved for the last 2 days 03/10 Clinically a lot better Off Lasix drip-on oral Torsemide now and spironolactone Ready to be discharged OBJECTIVE: Vital Signs-as noted below Exam: General-minimal distress at rest, out of bed in a chair Eyes-normal ENT-normal Neck-supple Lungs-decreased breath sounds bilaterally likely due to thick chest wall Heart-S1-S2, distant heart sounds Abdomen-distended, soft, difficult to feel for any organs Extremities-chronic bilateral edema 1+-getting better Neuro-alert, awake, oriented 3 Generally weak but no focal neuro deficit. Lab data as noted below. ASSESSMENT & PLAN: Acute on chronic right sided heart failure with underlying hypoventilation syndrome/obesity/COPD Chest x-ray demonstrated cardiomegaly and pulmonary vascular congestion. Echo Dec 2017 demonstrated normal LV systolic function, LV diastolic dysfunction , decreased RV systolic function. Acute on chronic left ventricular diastolic heart failure + acute on chronic right ventricular systolic heart failure. Cardiology consulted.-appreciate Input Continue IV Lasix drip-continue for the nect 48 hours Spirolactone added Check PRP on 03/10/18 Patient requires Hospital Bed to remain elevated above 30 degrees and requires frequent repositioning Off IV Lasix and back on oral Torsemide On Spironolactone CAD Serum troponin in ED normal. No anginal symptoms. Continue aspirin, metoprolol, nitrates, statin. HYPERTENSION Blood pressure this morning 144/73. Continue metoprolol and nitrates. SLEEP APNEA / OBESITY HYPOVENTILATION SYNDROME S/P tracheostomy. Continue supplemental oxygen. Maintaining saturation well PULMONARY SECRETIONS Patient experiencing thick pulmonary secretions which she attributes to diuretic therapy. Patient has tried guaifenesin in the past without benefit. Improved with saline nebs. CKD III Nephrology consulted. Serum creatinine today = 1.47. Creatinine is improving Monitor PRP-creatinine ~1.3 DM TYPE 2 Fairly well controlled. Hemoglobin A1c 8.5 on 01/15/18 and 7.5 on 03/01/18. Pharmacy consulted for glycemic management. Fasting blood sugar this morning 129. Continue insulin pump. MORBID OBESITY Weight 189 kg. BMI of 76. AHA / diabetic diet. PT/OT evaluation UTI (present on admission) Urine culture grew E. coli, resistant to ampicillin, cefazolin, ciprofloxacin, levofloxacin, TMP/sulfa. Patient has noted some chills and possible dysuria. Reported penicillin allergy, but has received cephalosporins recently without difficulty. Received Rx with ceftriaxone; transitioned to oral therapy with cefuroxime per sensitivities. Will continue for 7 to 10 days D/C [place] CONSTIPATION Bowel regimen as ordered. MOLINA CATHETER Remove when able. VTE PROPHYLAXIS SQ enoxaparin. Ambulate as able. DISPOSITION To be determined. May need skilled care or rehab. Family Medicine follow-up with Dr. Leos. Cardiology follow-up with [facility]. PT/OT Medically stable to be discharged Vital Signs: Date Time Temp Pulse Resp B/P (MAP) Pulse Ox O2 Delivery O2 Flow Rate FiO2 03/10/18 11:13 82 20 98 Trach Collar 28 03/10/18 07:55 36.5 74 24 105/59 (74) 95 Trach Collar 03/10/18 07:49 79 20 97 Trach Collar 6.0 22 03/10/18 04:40 37.0 72 20 136/77 (96) 96 Trach Collar 03/10/18 04:00 Trach Collar 28 03/10/18 00:04 37.1 84 22 138/74 (95) 98 Trach Collar 03/10/18 00:00 Trach Collar 28 03/09/18 21:34 85 120/73 (89) 94 03/09/18 20:00 Trach Collar 6.0 28 03/09/18 19:30 87 20 98 Trach Collar 6.0 28 03/09/18 19:02 37.1 86 20 91/55 (67) 96 03/09/18 16:00 Trach Collar 6.0 28 03/09/18 15:42 36.9 93 20 130/65 (86) 93 Room Air 03/09/18 15:22 89 21 97 Trach Collar 8.0 28 03/09/18 12:00 Trach Collar 28 03/09/18 11:29 36.5 85 20 149/71 (97) 95 Trach Collar 6.0 Lab Results: Results Past 24 Hours Test 03/09/18 16:33 03/09/18 19:54 03/10/18 05:34 03/10/18 07:02 Range/Units Bedside Glucose 198 245 187 70-90 mg/dl Sodium Level 138 136-145 mmol/L Potassium Level 3.5 3.5-5.1 mmol/L Chloride Level 99 98-107 mmol/L Carbon Dioxide Level 35 21-32 mmol/L Anion Gap 4.0 3-11 mmol/L Blood Urea Nitrogen 27 7-18 mg/dl Creatinine 1.34 0.60-1.20 mg/dl Est Creatinine Clear Calc Drug Dose 70.3 ml/min Estimated GFR () 49.4 Estimated GFR (Non- 42.7 BUN/Creatinine Ratio 20.0 10-20 Random Glucose 170 70-99 mg/dl Calcium Level 8.8 8.5-10.1 mg/dl Phosphorus Level 3.9 2.5-4.9 mg/dl Magnesium Level 2.3 1.8-2.4 mg/dl
[2018-03-10] MEDS ORDERED: TORSEMIDE 20 MG TAB PO SCH (14:00)
[2018-03-10] MEDS ORDERED: SPR25 PO (14:53)
[2018-03-10] MEDS ORDERED: MCRK20 PO (14:53)
[2018-03-10] MEDS ORDERED: DMD20 PO (14:53)
[2018-03-10] MEDS ORDERED: DOCU-94 PO (14:54)
--- NOTE | 2018-03-10 14:57 | Discharge Instructions ---
Discharge Instructions Date of Service Mar 10, 2018. Admission Reason for Admission: Bilateral Lower Extremity Edema, Right Ventricular Discharge Discharge Diagnosis / Problem: Right Heart Failure,Morbid Obesity Discharge Goals Goal(s): Prevent Disease Progression Activity Recommendations Activity Limitations: resume your previous activity (Take precaution to avoid fall) . Instructions / Follow-Up Instructions / Follow-Up Dr Salazar on 03/15/18 at 12:45 PM,Cardiology will call with appointment Call your Primary Care doctor if any of the following symptoms or problems start or get worse: * Shortness of breath or difficulty breathing * Wake up at night short of breath * Chest pain * Cough * Swelling of your hands, feet, or legs * More fatigued or tired with your normal activity * Palpitations - sudden fast heart beats WEIGHT * Weigh yourself every morning after using the bathroom. * Use the same scale. * Wear the same amount of clothing. * Write your weight down on a chart. * Call your Primary Care doctor if you gain more than 2-3 pounds in 1-2 days. MEDICATIONS * Use this discharge instruction sheet for medication instructions. * Take your medications at the time your doctor ordered. * Do not skip a dose of your medicines. * If you miss a dose of medicine, take it as soon as possible, but DO NOT DOUBLE A DOSE. * Read your medicine information when you get home. * Know all of the side effects of your medicine. If in doubt, ask your pharmacist * Call your Primary Care doctor's office if you have any side effects. * Be sure all of your doctors know what medicine and herbs you take (including cold, flu, and herbal medicine). Take the following with you to your follow-up doctor appointments: * Weight Chart * Medication List * List of questions Do not drink excessive alcohol, beer or wine. Current Hospital Diet Patient's current hospital diet: Diabetes Type 2 Diet Discharge Diet Recommended Diet: Diabetes Type 1 Diet Fluid Restriction: 2000 ml (8 cups) Pending Studies Studies pending at discharge: no Laboratory Results Hemoglobin A1c Test 03/01/18 06:41 Range/Units Estimated Average Glucose 169 mg/dl Hemoglobin A1c 7.5 H 4.5-5.6 % Medical Emergencies . Who to Call and When: Call 911 or go to the Emergency Room if: * If at any time you feel your situation is an emergency * You have tightness or pain in your chest that does not go away with rest or Nitroglycerin * You are very short of breath even with rest . Non-Emergent Contact Non-Emergency issues call your: Primary Care Provider . Past History Medical & Surgical History: (1) COPD with acute lower respiratory infection (2) Bilateral lower extremity edema (3) Fluid overload (4) SOB (shortness of breath) (5) Chronic respiratory failure (6) Hypothyroid (7) Dyslipidemia (8) CKD (chronic kidney disease), stage III (9) DM type 2 (diabetes mellitus, type 2) (10) HTN (hypertension) (11) Hypoventilation associated with obesity (12) History of appendectomy (13) History of cholecystectomy (14) History of tonsillectomy and adenoidectomy (15) S/P IVC filter (16) History of hysterectomy . "Provider Documentation" section prepared by Jhony Pat. .
--- NOTE | 2018-03-10 18:27 | Discharge Summary ---
Discharge Summary Date of Service Mar 10, 2018. Discharge Summary Admission Date: Feb 27, 2018 at 18:30 Discharge Date: Mar 10, 2018 Discharge Disposition: Home with services Principal Diagnosis: Right Heart Failure,Morbid Obesity Secondary Diagnoses/Problems: Please see H&P and Hospital progress note Consultations: Cardiology Medication Reconciliation New Medications: Docusate Sodium (Colace) 100 Mg Cap 1 CAP PO BID for 30 Days, #60 CAP Potassium Chloride (Klor-Con M20) 20 Meq Tabcr 20 MEQ PO DAILY for 30 Days, #30 Spironolactone (Spironolactone) 25 Mg Tab 25 MG PO QAM for 30 Days, #30 TAB Torsemide (Torsemide) 20 Mg Tab 20 MG PO BID for 30 Days, #60 TAB 1 in the morning and 1 at PM Continued Medications: Acetaminophen (Tylenol) 500 Mg Tab 500 MG PO PRN, TAB Albuterol Sulfate (Proair Respiclick) 108 Mcg/Act Aer 2 PUFFS INH Q4H PRN for SOB/Wheezing Aspirin (Aspir-81) 81 Mg Tab 1 TAB PO DAILY, TAB Atorvastatin (Lipitor) 20 Mg Tab 20 MG PO QPM Benzonatate (Tessalon Perles) 100 Mg Cap 100 MG PO TID PRN for Cough, CAP Bupropion (Wellbutrin Sr) 100 Mg Ertab 100 MG PO QAM Bupropion (Wellbutrin Sr) 100 Mg Ertab 200 MG PO HS, TAB Ergocalciferol (Vitamin D 83343 Unit) 50,000 Unit Cap 84579 UNIT PO MWF, CAP Fluconazole (Fluconazole) 100 Mg Tab 100 MG PO PRN UD Folic Acid (Folic Acid) 1 Mg Tab 1 MG PO DAILY Hydrogen Peroxide (Hydrogen Peroxide) 3 % Brianna UD TO BE USED WITH [facility] Insulin Glargine (Lantus) 100 Unit/Ml Inj 75 UNITS SQ BID UD, VIAL FOR BACK UP IF PUMP STOPS WORKING. Insulin Human Lispro (Insulin Humalog Pump ) Pump 1 EA N/A UD max daily dose 400 units Ipratropium-Albuterol (Duoneb) 3 Ml Nebu 1 TREATMENT INH QID, INHA Ipratropium-Albuterol (Combivent Respimat) 1 Aer Aer 1 PUFFS INH QID, INH Isosorbide Mononitrate Ext Rel (Imdur Ext Rel) 60 Mg Ertab 60 MG PO DAILY Ketoconazole (Ketoconazole) 45 Appln/15 Gm Cr 1 APPLN TOP BID PRN for BREAKOUTS apply to feet Levothyroxine Sodium (Synthroid) 200 Mcg Tab 200 MCG PO 5XWK, TAB TAKE SUN, TUES, WED, FRI, SAT Levothyroxine Sodium (Synthroid) 200 Mcg Tab 300 MCG PO 2XWK, TAB TAKE MON & THUR Lorazepam (Ativan) 1 Mg Tab 1 MG PO Q8 PRN for anxiety/agitation or sleep, TAB Metoprolol Tartrate (Lopressor) 25 Mg Tab 12.5 MG PO BID Montelukast Sod (Montelukast Sodium) 10 Mg Tab 10 MG PO HS Multivitamin (Multivitamin) Tab 1 TAB PO DAILY, TAB Nitroglycerin (Nitrostat) 0.4 Mg Tab 0.4 MG UT UD PRN for Chest Pain, [address] ONE TABLET UNDER THE TONGUE EVERY 5 MINUTES FOR UP TO 3 DOSES OVER 15 MINUTES IF NEEDED FOR CHEST PAIN. Pantoprazole (Pantoprazole Sodium) 40 Mg Tab 40 MG PO DAILY Topiramate (Topiramate) 100 Mg Tab 100 MG PO QAM Topiramate (Topamax) 200 Mg Tab 200 MG PO HS, TAB Tramadol (Ultram) 50 Mg Tab 50 MG PO BID PRN for Pain Triamcinolone Acet (Triamcinolone Acetonide) 45 Appln/15 Gm Cr 1 APPLN TOP BID apply to affected area(s) Discontinued Medications: Azithromycin (Azithromycin) 250 Mg Tab 250 MG PO MWF Bumetanide (Bumetanide) 1 Mg Tab 1 MG PO BID Potassium Chloride (Potassium Chloride Cr) 10 Meq Tab 10 MEQ PO BID Admission Information HPI (per Admitting provider): 62 year old female who followed with cardiology with last visit at [facility] on 02/24/18 which details that this is a patient with: right sided heart failure secondary to long-standing history of obesity hypoventilation syndrome, COPD exacerbation, tracheostomy. She was recently hospitalized with aggressive diuresis, greater than 50 lbs lost with IV furosemide. Up until the vist at [facility] on 02/24/18, patient was on torsemide 30 mg daily Because of progressive weight gain, with associated worsening of her LE edema, dyspnea, patient was givem IV Lasix and started on Bumex 1 mg - 1 tab BID as outpatient Patient arrives to the ED because symptoms of weight gain with lower extremity swelling and dyspnea has not improved despite outpatient changes in diuretic therapies Patient was on room air and no CXR signs of pulmonary edema. She was given IV Bumex in the ER and seen by hospitalist for admission. Cefepime was also given in the ED Past Medical/Surgical History Medical Problems: (1) Anxiety (2) Bilateral lower extremity edema (3) Bronchiectasis (4) Chronic respiratory failure (5) CKD (chronic kidney disease), stage III (6) COPD (chronic obstructive pulmonary disease) (7) COPD exacerbation (8) COPD with acute lower respiratory infection (9) DM type 2 (diabetes mellitus, type 2) (10) Dyslipidemia (11) HTN (hypertension) (12) Hypothyroid (13) Hypoventilation associated with obesity (14) Hypoxia (15) Migraine (16) MRSA (methicillin resistant staph aureus) culture positive (17) Obesity (18) Respiratory distress (19) Rib pain on right side (20) Right ventricular dysfunction (21) Shortness of breath (22) Tracheostomy in place (23) Tracheostomy present (24) Tracheostomy present Surgical Problems: (1) History of appendectomy (2) History of cholecystectomy (3) History of hysterectomy (4) History of tonsillectomy and adenoidectomy (5) S/P IVC filter Family History FH: COPD (chronic obstructive pulmonary disease) MOTHER Social History Smoking Status: Never Smoker Drug Use: none Marital Status: Housing status: lives with family Occupational Status: disabled Immunizations History of Influenza Vaccine: Yes Influenza Vaccine Date: Sep 27, 2016 History of Tetanus Vaccine?: Yes Tetanus Immunization Date: Jul 29, 2011 History of Pneumococcal: Yes Pneumococcal Date: Sep 27, 2016 Allergies Coded Allergies: Amitriptyline (Verified Allergy, Unknown, `, 01/15/18) Gabapentin (Verified Allergy, Unknown, `, 01/15/18) Metformin (Verified Allergy, Unknown, `, 01/15/18) Penicillins (Verified Allergy, Unknown, `, 01/15/18) Pseudoephedrine (Verified Allergy, Unknown, `, 01/15/18) Tetracycline (Verified Allergy, Unknown, `, 01/15/18) Home Medications Scheduled Acetaminophen (Tylenol), 500 MG PO PRN Aspirin (Aspir-81), 1 TAB PO DAILY Atorvastatin (Lipitor), 20 MG PO QPM Azithromycin (Azithromycin), 250 MG PO MWF Bumetanide (Bumetanide), 1 MG PO BID Bupropion (Wellbutrin Sr), 100 MG PO QAM Bupropion (Wellbutrin Sr), 200 MG PO HS Ergocalciferol (Vitamin D 72740 Unit), 50,000 UNIT PO MWF Fluconazole (Fluconazole), 100 MG PO PRN UD Folic Acid (Folic Acid), 1 MG PO DAILY Hydrogen Peroxide (Hydrogen Peroxide), UD Insulin Glargine (Lantus), 75 UNITS SQ BID UD Insulin Human Lispro (Insulin Humalog Pump ), 1 EA N/A UD Ipratropium-Albuterol (Duoneb), 1 TREATMENT INH QID Ipratropium-Albuterol (Combivent Respimat), 1 PUFFS INH QID Isosorbide Mononitrate Ext Rel (Imdur Ext Rel), 60 MG PO DAILY Levothyroxine Sodium (Synthroid), 200 MCG PO 5XWK Levothyroxine Sodium (Synthroid), 300 MCG PO 2XWK Metoprolol Tartrate (Lopressor), 12.5 MG PO BID Montelukast Sod (Montelukast Sodium), 10 MG PO HS Multivitamin (Multivitamin), 1 TAB PO DAILY Pantoprazole (Pantoprazole Sodium), 40 MG PO DAILY Potassium Chloride (Potassium Chloride Cr), 10 MEQ PO BID Topiramate (Topiramate), 100 MG PO QAM Topiramate (Topamax), 200 MG PO HS Triamcinolone Acet (Triamcinolone Acetonide), 1 APPLN TOP BID Scheduled PRN Albuterol Sulfate (Proair Respiclick), 2 PUFFS INH Q4H PRN for SOB/Wheezing Benzonatate (Tessalon Perles), 100 MG PO TID PRN for Cough Ketoconazole (Ketoconazole), 1 APPLN TOP BID PRN for BREAKOUTS Lorazepam (Ativan), 1 MG PO Q8 PRN for anxiety/agitation or sleep Nitroglycerin (Nitrostat), 0.4 MG UT UD PRN for Chest Pain Tramadol (Ultram), 50 MG PO BID PRN for Pain Review of Systems Constitutional: + problem reported (weight gain especially of lower extremities ), No fever, No chills Eyes: No worsening of vision, No eye pain ENT: + problem reported (has trach), No hearing loss, No unusual epistaxis, No nasal symptoms, No sore throat Respiratory: + shortness of breath, No cough, No wheezing Cardiovascular: + edema, No chest pain, No palpitations Abdomen: No pain, No nausea, No vomiting, No diarrhea, No constipation Musculoskeletal: + swelling, No joint pain, No muscle pain, No calf pain Genitourinary - Female: + urinary retention, No dysuria Neurologic: No numbness/tingling Hematologic / Lymphatic: No abnormal bleeding/bruising Integumentary: No rash, No itch Physical Exam H&P v2 Physical Exam Vital Signs Date Time Temp Pulse Resp B/P (MAP) Pulse Ox O2 Delivery O2 Flow Rate FiO2 02/27/18 20:11 36.8 81 20 139/68 97 Trach Collar 02/27/18 18:59 80 26 118/62 98 02/27/18 18:33 80 26 118/62 98 Humidified Oxygen 28 02/27/18 16:10 95 Room Air 02/27/18 15:53 72 28 02/27/18 15:01 36.8 74 22 157/73 95 Room Air 02/27/18 12:41 36.6 79 18 150/74 98 Room Air General Appearance: no apparent distress, + obese Head: normocephalic, atraumatic Eyes: normal inspection, EOMI, sclerae normal ENT: normal ENT inspection, hearing grossly normal, pharynx normal Neck: supple, no adenopathy (has trach), no JVD, trachea midline, + pertinent finding Respiratory/Chest: chest non-tender, lungs clear, normal breath sounds, no respiratory distress, no accessory muscle use Cardiovascular: regular rate, rhythm, no JVD, normal peripheral pulses, + pertinent finding (bilateral lower edema) Abdomen/GI: normal bowel sounds, non tender, soft, no pulsatile mass Back: normal inspection, no CVA tenderness, no muscle spasm, normal range of motion Extremities/Musculoskelatal: normal inspection, no calf tenderness, non-tender , + pedal edema, + swelling Neurologic/Psych: no motor/sensory deficits, alert, normal mood/affect, oriented x 3 Skin: + mottled (lower extremities) Diagnostics H&P v2 Diagnostics Laboratory Results Results Past 24 Hours Test 02/27/18 15:05 02/27/18 16:00 02/27/18 20:32 Range/Units White Blood Count 11.81 4.8-10.8 K/uL Red Blood Count 4.19 4.2-5.4 M/uL Hemoglobin 11.9 12.0-16.0 g/dL Hematocrit 38.9 37-47 % Mean Corpuscular Volume 92.8 80-100 fL Mean Corpuscular Hemoglobin 28.4 25-34 pg Mean Corpuscular Hemoglobin Concent 30.6 32-36 g/dl Platelet Count 316 130-400 K/uL Mean Platelet Volume 9.5 7.4-10.4 fL Neutrophils (%) (Auto) 73.0 % Lymphocytes (%) (Auto) 16.2 % Monocytes (%) (Auto) 7.2 % Eosinophils (%) (Auto) 1.9 % Basophils (%) (Auto) 0.3 % Neutrophils # (Auto) 8.63 1.4-6.5 K/uL Lymphocytes # (Auto) 1.91 1.2-3.4 K/uL Monocytes # (Auto) 0.85 0.11-0.59 K/uL Eosinophils # (Auto) 0.22 0-0.5 K/uL Basophils # (Auto) 0.04 0-0.2 K/uL RDW Standard Deviation 54.9 36.4-46.3 fL RDW Coefficient of Variation 16.2 11.5-14.5 % Immature Granulocyte % (Auto) 1.4 % Immature Granulocyte # (Auto) 0.16 0.00-0.02 K/uL Prothrombin Time 10.3 9.0-12.0 SECONDS Prothromb Time International Ratio 1.0 0.9-1.1 Activated Partial Thromboplast Time 24.7 21.0-31.0 SECONDS Partial Thromboplastin Ratio 1.0 Sodium Level 139 136-145 mmol/L Potassium Level 4.0 3.5-5.1 mmol/L Chloride Level 106 98-107 mmol/L Carbon Dioxide Level 27 21-32 mmol/L Anion Gap 6.0 3-11 mmol/L Blood Urea Nitrogen 14 7-18 mg/dl Creatinine 1.32 0.60-1.20 mg/dl Estimated GFR () 50.3 Estimated GFR (Non- 43.4 BUN/Creatinine Ratio 10.3 10-20 Random Glucose 160 70-99 mg/dl Calcium Level 8.8 8.5-10.1 mg/dl Magnesium Level 2.3 1.8-2.4 mg/dl Total Bilirubin 0.4 0.2-1 mg/dl Aspartate Amino Transf (AST/SGOT) 19 15-37 U/L Alanine Aminotransferase (ALT/SGPT) 23 12-78 U/L Alkaline Phosphatase 89 45-117 U/L Troponin I < 0.015 0-0.045 ng/ml Pro-B-Type Natriuretic Peptide 98 0-900 pg/ml Total Protein 7.4 6.4-8.2 gm/dl Albumin 2.9 3.4-5.0 gm/dl Globulin 4.5 2.5-4.0 gm/dl Albumin/Globulin Ratio 0.6 0.9-2 Thyroid Stimulating Hormone (TSH) 1.460 0.300-4.500 uIu/ml Free Thyroxine 1.34 0.80-1.60 ng/dl Thyroxine (T4) 10.7 4.5-10.9 mcg/dl Urine Color YELLOW Urine Appearance CLEAR CLEAR Urine pH 7.0 4.5-7.5 Urine Specific [place] 1.014 1.000-1.030 Urine Protein NEG NEG Urine Glucose (UA) NEG NEG Urine Ketones NEG NEG Urine Occult Blood NEG NEG Urine Nitrite POS NEG Urine Bilirubin NEG NEG Urine Urobilinogen NEG NEG Urine Leukocyte Esterase SMALL NEG Urine WBC (Auto) >30 0-5 /hpf Urine RBC (Auto) 0-4 0-4 /hpf Urine Hyaline Casts (Auto) 1-5 0-5 /lpf Urine Epithelial Cells (Auto) 5-10 0-5 /lpf Urine Bacteria (Auto) 2+ NEG Bedside Glucose 114 70-90 mg/dl Microbiology Results 02/27/18 Blood Culture, Received Pending 02/27/18 Blood Culture, Received Pending 02/27/18 Urine Culture, Received Pending Impression H&P v2 Impression Assessment and Plan 62 year old female who followed with cardiology with last visit at [facility] on 02/24/18 which details that this is a patient with: right sided heart failure secondary to long-standing history of obesity hypoventilation syndrome, COPD exacerbation, tracheostomy. -recently hospitalized with aggressive diuresis, greater than 50 lbs lost with IV furosemide. -Up until the visit at [facility] on 02/24/18, patient was on torsemide 30 mg daily -Because of progressive weight gain, with associated worsening of her LE edema, dyspnea, patient was givem IV Lasix and started on Bumex 1 mg - 1 tab BID as outpatient -Patient arrives to the ED because symptoms of weight gain with lower extremity swelling and dyspnea has not imported despite outpatient changes in diuretic therapies -Patient was on room air and no CXR signs of pulmonary edema. She was given IV Bumex in the ER and seen by hospitalist for admission. -plan is to give Lasix 40 mg IV BID for now, fluid restriction of 1500 ml daily , monitor electrolytes while patient is on high dose diuretics -cardiology consult and renal requested for further assistance with fluid management there is no obvious signs of infection and while patient received cefepime in the ED, there is no need to continue cefepime at this time, follow up blood and urine culture Renal function, history of CKD, on diuretics -renal consult requested Diabetes on insulin -patient is on insulin pump. patient denies of using subcutaneous insulin at home -patient prefers to monitor her own insulin pump in the hospital, pharmacy glycemic consult placed and to allow for patient to do this, nursing staff to still check fingerstick glucose History of Hypothyroidism -TFTs checked, not hypothyroid, T4 10.7 is somewhat high -at home she takes 300 mcg daily on Tuesday and and 200 mcg daily on other days -continue as 200 mcg daily and have patient repeat TFTs in 3 weeks as outpatient Dyspnea -saturating well on room air -duonebs prn if shortness of breath -optimize volume status -Tracheostomy care as per nursing -may have obesity hypoventilation syndrome, monitor Morbid Obesity with BMI 76 DVT ppx Full Code Family member daughter [phone] Advanced Directives Existing Living Will: No Existing Power of Group [employer] Vp: No Resuscitation Status VTE Prophylaxis Will order VTE Prophylaxis: Yes Physical Exam (per Admitting): General Appearance: no apparent distress, + obese Head: normocephalic, atraumatic Eyes: normal inspection, EOMI, sclerae normal ENT: normal ENT inspection, hearing grossly normal, pharynx normal Neck: supple, no adenopathy (has trach), no JVD, trachea midline, + pertinent finding Respiratory/Chest: chest non-tender, lungs clear, normal breath sounds, no respiratory distress, no accessory muscle use Cardiovascular: regular rate, rhythm, no JVD, normal peripheral pulses, + pertinent finding (bilateral lower edema) Abdomen/GI: normal bowel sounds, non tender, soft, no pulsatile mass Back: normal inspection, no CVA tenderness, no muscle spasm, normal range of motion Extremities/Musculoskelatal: normal inspection, no calf tenderness, non- tender, + pedal edema, + swelling Neurologic/Psych: no motor/sensory deficits, alert, normal mood/affect, oriented x 3 Skin: + mottled (lower extremities) Hospital Course Acute on chronic right sided heart failure with underlying hypoventilation syndrome/obesity/COPD Chest x-ray demonstrated cardiomegaly and pulmonary vascular congestion. Echo Dec 2017 demonstrated normal LV systolic function, LV diastolic dysfunction , decreased RV systolic function. Acute on chronic left ventricular diastolic heart failure + acute on chronic right ventricular systolic heart failure. Cardiology consulted.-appreciate Input Continue IV Lasix drip-continue for the nect 48 hours Spirolactone added Check PRP on 03/10/18 Patient requires Hospital Bed to remain elevated above 30 degrees and requires frequent repositioning Off IV Lasix and back on oral Torsemide On Spironolactone CAD Serum troponin in ED normal. No anginal symptoms. Continue aspirin, metoprolol, nitrates, statin. HYPERTENSION Blood pressure this morning 144/73. Continue metoprolol and nitrates. SLEEP APNEA / OBESITY HYPOVENTILATION SYNDROME S/P tracheostomy. Continue supplemental oxygen. Maintaining saturation well PULMONARY SECRETIONS Patient experiencing thick pulmonary secretions which she attributes to diuretic therapy. Patient has tried guaifenesin in the past without benefit. Improved with saline nebs. CKD III Nephrology consulted. Serum creatinine today = 1.47. Creatinine is improving Monitor PRP-creatinine ~1.3 DM TYPE 2 Fairly well controlled. Hemoglobin A1c 8.5 on 01/15/18 and 7.5 on 03/01/18. Pharmacy consulted for glycemic management. Fasting blood sugar this morning 129. Continue insulin pump. MORBID OBESITY Weight 189 kg. BMI of 76. AHA / diabetic diet. PT/OT evaluation UTI (present on admission) Urine culture grew E. coli, resistant to ampicillin, cefazolin, ciprofloxacin, levofloxacin, TMP/sulfa. Patient has noted some chills and possible dysuria. Reported penicillin allergy, but has received cephalosporins recently without difficulty. Received Rx with ceftriaxone; transitioned to oral therapy with cefuroxime per sensitivities. Will continue for 7 to 10 days D/C [place] CONSTIPATION Bowel regimen as ordered. MOLINA CATHETER Remove when able. VTE PROPHYLAXIS SQ enoxaparin. Ambulate as able. DISPOSITION To be determined. May need skilled care or rehab. Family Medicine follow-up with Dr. Leos. Cardiology follow-up with [facility]. PT/OT Medically stable to be discharged Total time spent on discharge = This includes examination of the patient, discharge planning, medication reconciliation, and communication with other providers. Discharge Instructions Date of Service Mar 10, 2018. Admission Reason for Admission: Bilateral Lower Extremity Edema, Right Ventricular Discharge Discharge Diagnosis / Problem: Right Heart Failure,Morbid Obesity Discharge Goals Goal(s): Prevent Disease Progression Activity Recommendations Activity Limitations: resume your previous activity (Take precaution to avoid fall) . Instructions / Follow-Up Instructions / Follow-Up Dr Salazar on 03/15/18 at 12:45 PM,Cardiology will call with appointment Call your Primary Care doctor if any of the following symptoms or problems start or get worse: * Shortness of breath or difficulty breathing * Wake up at night short of breath * Chest pain * Cough * Swelling of your hands, feet, or legs * More fatigued or tired with your normal activity * Palpitations - sudden fast heart beats WEIGHT * Weigh yourself every morning after using the bathroom. * Use the same scale. * Wear the same amount of clothing. * Write your weight down on a chart. * Call your Primary Care doctor if you gain more than 2-3 pounds in 1-2 days. MEDICATIONS * Use this discharge instruction sheet for medication instructions. * Take your medications at the time your doctor ordered. * Do not skip a dose of your medicines. * If you miss a dose of medicine, take it as soon as possible, but DO NOT DOUBLE A DOSE. * Read your medicine information when you get home. * Know all of the side effects of your medicine. If in doubt, ask your pharmacist * Call your Primary Care doctor's office if you have any side effects. * Be sure all of your doctors know what medicine and herbs you take (including cold, flu, and herbal medicine). Take the following with you to your follow-up doctor appointments: * Weight Chart * Medication List * List of questions Do not drink excessive alcohol, beer or wine. Current Hospital Diet Patient's current hospital diet: Diabetes Type 2 Diet Discharge Diet Recommended Diet: Diabetes Type 1 Diet Fluid Restriction: 2000 ml (8 cups) Pending Studies Studies pending at discharge: no Laboratory Results Hemoglobin A1c Test 03/01/18 06:41 Range/Units Estimated Average Glucose 169 mg/dl Hemoglobin A1c 7.5 H 4.5-5.6 % Medical Emergencies . Who to Call and When: Call 911 or go to the Emergency Room if: * If at any time you feel your situation is an emergency * You have tightness or pain in your chest that does not go away with rest or Nitroglycerin * You are very short of breath even with rest . Non-Emergent Contact Non-Emergency issues call your: Primary Care Provider . Past History Medical & Surgical History: (1) COPD with acute lower respiratory infection (2) Bilateral lower extremity edema (3) Fluid overload (4) SOB (shortness of breath) (5) Chronic respiratory failure (6) Hypothyroid (7) Dyslipidemia (8) CKD (chronic kidney disease), stage III (9) DM type 2 (diabetes mellitus, type 2) (10) HTN (hypertension) (11) Hypoventilation associated with obesity (12) History of appendectomy (13) History of cholecystectomy (14) History of tonsillectomy and adenoidectomy (15) S/P IVC filter (16) History of hysterectomy . "Provider Documentation" section prepared by Jhony Pat. . <Electronically signed by Jhony Pat M.D.> Additional Copies To Rowan Leos D.O.
[2018-03-11] MEDS ORDERED: POTASSIUM CHLORIDE 20 MEQ TABCR PO SCH (09:00)
== END 2018-03-10 15:30 | disposition home health service (06) | DRG 292 ==
LOC: C.EDB 12:26 → C.2E 18:30 → ENRESERV 18:45
PROVIDERS: ADMIT Hospitalist; ATTEND Internal Medicine
DX: I50.813 Acute on chronic right heart failure (principal); I13.0 Hypertensive heart and chronic kidney disease with heart failure and stage 1 through stage 4 chronic kidney disease, or unspecified chronic kidney disease; N39.0 Urinary tract infection, site not specified; Z68.45 Body mass index [BMI] 70 or greater, adult; F41.9 Anxiety disorder, unspecified; N18.3 Chronic kidney disease, stage 3 (moderate); J44.9 Chronic obstructive pulmonary disease, unspecified; I25.10 Atherosclerotic heart disease of native coronary artery without angina pectoris; E11.22 Type 2 diabetes mellitus with diabetic chronic kidney disease; E78.5 Hyperlipidemia, unspecified; E03.9 Hypothyroidism, unspecified; E66.01 Morbid (severe) obesity due to excess calories; B96.20 Unspecified Escherichia coli [E. coli] as the cause of diseases classified elsewhere; K59.00 Constipation, unspecified; Z86.14 Personal history of Methicillin resistant Staphylococcus aureus infection; Z90.49 Acquired absence of other specified parts of digestive tract; Z90.710 Acquired absence of both cervix and uterus; Z79.82 Long term (current) use of aspirin; Z79.4 Long term (current) use of insulin; Z88.0 Allergy status to penicillin; Z88.8 Allergy status to other drugs, medicaments and biological substances; Z93.0 Tracheostomy status

== ENCOUNTER 2018-06-12 17:09 | Inpatient (IN) | payer OTHER ==
[~2018-06-12] VITALS: Ht 157.5 cm; Wt 162.3 kg
[~2018-06-12 17:09] MED LIST changes: +BENZ100C84 PO; -CLOTCRE TOP; -CLR/5 PO; +DFL100 PO; -ERGO500011 PO; +ERGO500037 PO; +FLV1 PO; -GFNSR600 PO; +INSDGI SQ; +INSPMPHMLG; +IPRA-64 INH; +ISOS60TA25 PO; +LEVO200T PO; -LEVO200T6 PO; +LPR25 PO; +LPT20 PO; +MCRK20 PO; +NTRGSL/4 UT; -OXGN MS; +PANT40TA2 PO; -POTA10TA30 PO; -PRD20 PO; +SPIR25TA6 PO; +TOPI200T14 PO; -TORS20TA2 PO; +TORS20TA3 PO; +TPM100 PO; +TYLOTC500 PO; +[UNRECOGNIZED DRUG - CODE]
--- NOTE | 2018-06-12 17:25 | EMERGENCY ROOM VISIT NOTE ---
History Report prepared by Hipolito: Surya Altamirano Under the Supervision of: Dr. Cy Briseno D.O. First contact with patient: 17:09 Stated Complaint: FEVER, CHILLS, AMS, SHAKEY History of Present Illness The patient is a 63 year old female who presents to the Emergency Room via EMS with complaints of a worsening fever that began this afternoon. EMS states the patient's fever was 103.1. They add the patient was coughing, shaking, and short of breath. Patient adds she has a headache, but denies any other pain. Family states patient was not acting herself this afternoon. EMS states the patient uses oxygen at night but not during the day. Patient denies urinary symptoms. Patient received 500ml bolus via EMS but only got 100ml so far. Family states the patient was talking and feeling fine this morning. Patient is coming from home. Source of History: patient, family, EMS Onset: This afternoon Position: head Symptom Intensity: 103.1 Timing: worsening Modifying Factors (Relieving): other (None) Associated Symptoms: + headache, + cough, + SOB, No urinary symptoms Note: Positive shaking. Negative pain. Review of Systems See HPI for pertinent positives & negatives. A total of 10 systems reviewed and were otherwise negative. Past Medical & Surgical Medical Problems: (1) Anxiety (2) Bronchiectasis (3) Chronic respiratory failure (4) CKD (chronic kidney disease), stage III (5) COPD (chronic obstructive pulmonary disease) (6) DM type 2 (diabetes mellitus, type 2) (7) Dyslipidemia (8) HTN (hypertension) (9) Hypothyroid (10) Hypoventilation associated with obesity (11) Migraine (12) MRSA (methicillin resistant staph aureus) culture positive (13) Right ventricular dysfunction (14) Tracheostomy in place (15) Tracheostomy present Surgical Problems: (1) History of appendectomy (2) History of cholecystectomy (3) History of hysterectomy (4) History of tonsillectomy and adenoidectomy (5) S/P IVC filter Family History Diabetes mellitus FH: COPD (chronic obstructive pulmonary disease) MOTHER Gallbladder disease Hypertension Kidney disease Seizures Social History Smoking Status: Never Smoker Alcohol Use: none Drug Use: none Marital Status: Housing Status: lives with family Occupation Status: disabled Current/Historical Medications Scheduled Aspirin (Aspirin Ec), 81 MG PO DAILY Atorvastatin (Lipitor), 20 MG PO DAILY Benzonatate (Tessalon Perles), 100 MG PO TID Bupropion (Wellbutrin Sr), 300 MG PO DAILY Clotrimazole W/ Betamethasone (Lotrisone), 1 APPLN TOP BID Desloratadine (Clarinex), 5 MG PO DAILY Docusate Sodium (Colace), 100 MG PO BID Ergocalciferol (Vitamin D 81564 Unit), 50,000 UNIT PO MWF Folic Acid (Folvite), 1 MG PO DAILY Home O2 Therapy (Oxygen), 5 LITERS NA PRN Hydrogen Peroxide (Hydrogen Peroxide), 1 PINT TR UD Insulin Glargine (Lantus), 75 UNITS SC BID Insulin Human Lispro (Insulin Humalog Pump ), 1 EA N/A UD Insulin Lispro (Human) (Humalog), 1 DOSE XX DAILY Ipratropium-Albuterol (Duoneb), 1 TREATMENT INH QID Ipratropium-Albuterol (Combivent Respimat), 1 PUFFS INH QID Isosorbide Mononitrate (Imdur Ext Rel), 60 MG PO DAILY Ketoconazole (Ketoconazole), 1 APPLN TOP BID Levothyroxine Sodium (Levothyroxine Sodium), 300 MCG PO 2XWK Levothyroxine Sodium (Levothyroxine Sodium), 200 MCG PO 5XWK Metoprolol Tartrate (Lopressor) (Lopressor), 12.5 MG PO BID Montelukast Sodium (Singulair), 10 MG PO DAILY Multivitamin (Multivitamin), 1 TAB PO DAILY Pantoprazole (Protonix), 40 MG PO DAILY Potassium Chloride (Potassium Chloride ER), 20 MEQ PO DAILY Spironolactone (Aldactone), 25 MG PO DAILY Topiramate (Topamax), 100 MG PO QAM Topiramate (Topamax), 200 MG PO HS Torsemide (Demadex), 20 MG PO BID Tramadol (Ultram), 50 MG PO BID Triamcinolone Acet (Triamcinolone Acetonide), 1 APPLN TOP BID Scheduled PRN Acetaminophen (Tylenol Extra Strength), 1 DOSE PO UD PRN for Pain Albuterol Sulfate (Proair Respiclick), 2 PUFFS INH Q4 PRN for SOB/Wheezing Guaifenesin La (Guaifenesin Er), 600 MG PO BID PRN for Cough Insulin Glargine (Lantus Solostar), 1 DOSE SC UD PRN for PUMP FAILURE Lorazepam (Ativan), 1 MG PO Q8 PRN for ANXIETY, AGITATION OR SLEEP Nitroglycerin (Nitrostat), 0.4 MG UT PRN PRN for Chest Pain Allergies Coded Allergies: Amitriptyline (Verified Allergy, Unknown, `, 06/12/18) Gabapentin (Verified Allergy, Unknown, `, 06/12/18) Metformin (Verified Allergy, Unknown, `, 06/12/18) Penicillins (Verified Allergy, Unknown, `, 06/12/18) Pseudoephedrine (Verified Allergy, Unknown, `, 06/12/18) Tetracycline (Verified Allergy, Unknown, `, 06/12/18) Physical Exam Vital Signs Date Time Temp Pulse Resp B/P (MAP) Pulse Ox O2 Delivery O2 Flow Rate FiO2 06/12/18 21:46 113 06/12/18 21:44 113 37 97 06/12/18 21:32 120/64 06/12/18 21:14 115 34 97 06/12/18 21:05 87 18 98 Trach Collar 15.0 50 06/12/18 21:02 138/62 06/12/18 20:44 116 38 92 06/12/18 20:31 140/64 06/12/18 20:14 115 40 94 06/12/18 20:09 116 39 92 06/12/18 20:01 144/64 06/12/18 19:39 116 46 93 06/12/18 19:32 135/76 06/12/18 19:09 117 38 94 06/12/18 19:02 151/79 06/12/18 18:39 114 28 93 06/12/18 18:31 127/64 06/12/18 18:30 115 40 127/64 93 Room Air 06/12/18 18:09 114 30 92 06/12/18 17:46 115 06/12/18 17:39 113 26 06/12/18 17:25 38.2 122 14 139/80 92 Room Air 06/12/18 17:25 92 Room Air 06/12/18 17:16 139/80 Physical Exam GENERAL: Patient is awake, alert, and in no acute distress. Patient is resting comfortably, follows commands slowly, and appears anxious EYES: The conjunctivae are clear. The pupils are round and reactive. EARS, NOSE, MOUTH AND THROAT: The nose is without any evidence of any deformity. Mucous membranes are moist. Tongue is midline NECK: Trach was in place. Clear discharge noted from trach otherwise the neck is nontender and supple. RESPIRATORY: Lung sounds diminished throughout. Expiratory wheezing was noted in both upper lung hale. Significant tachypnea and conversational dyspnea noted otherwise normal respiratory effort is noted. There is no evidence of rhonchi or rales to auscultation. CARDIOVASCULAR: Tachycardic rate but regular rhythm noted. There no murmurs rubs or gallops normal S1 normal S2 GASTROINTESTINAL: The abdomen is soft. Bowel sounds are present in all quadrants. Abdomen is nontender. BACK: No midline tenderness or or step-off noted range of motion in flexion extension as well as rotation no signs of muscle spasm noted. PELVIS: The Pelvis is stable. No tenderness to palpation is noted. MUSCULOSKELETAL/EXTREMITIES: There is no evidence of gross deformity. Full range of motion is noted in the hips and shoulders. SKIN: Pedal edema bilaterally otherwise there is no obvious evidence of any rash. There are no petechiae, pallor or cyanosis noted. NEUROLOGIC: Patient is slow to answer questions. Oriented to person, place, and time. Strength is symmetric. Patellar reflexes are 2+ bilaterally. Medical Decision & Procedures ER Provider Diagnostic Interpretation: Radiology results as stated below per my review and radiologist interpretation: CHEST ONE VIEW PORTABLE CLINICAL HISTORY: Sepsis dyspnea COMPARISON STUDY: 02/27/2018 FINDINGS: Moderate cardiac megaly. Tracheostomy tube in good position. Prominent pulmonary vasculature. IMPRESSION: Cardiomegaly with findings of developing congestive heart failure The above report was generated using voice recognition software. It may contain grammatical, syntax or spelling errors. Electronically signed by: Neftali Trotter M.D. 06/12/2018 5:47 PM Laboratory Results 06/12/18 17:40 Red Blood Count 4.51, Mean Corpuscular Volume 88.7, Mean Corpuscular Hemoglobin 27.7, Mean Corpuscular Hemoglobin Concent 31.3, Mean Platelet Volume 9.9, Neutrophils (%) (Auto) 92.0, Lymphocytes (%) (Auto) 3.3, Monocytes (%) (Auto) 4.0, Eosinophils (%) (Auto) 0.3, Basophils (%) (Auto) 0.1, Neutrophils # (Auto) 16.47, Lymphocytes # (Auto) 0.59, Monocytes # (Auto) 0.72, Eosinophils # (Auto) 0.05, Basophils # (Auto) 0.01 06/12/18 17:40 Test 06/12/18 17:40 06/12/18 17:51 06/12/18 18:49 06/12/18 19:50 White Blood Count 17.89 K/uL (4.8-10.8) Red Blood Count 4.51 M/uL (4.2-5.4) Hemoglobin 12.5 g/dL (12.0-16.0) Hematocrit 40.0 % (37-47) Mean Corpuscular Volume 88.7 fL (80-100) Mean Corpuscular Hemoglobin 27.7 pg (25-34) Mean Corpuscular Hemoglobin Concent 31.3 g/dl (32-36) Platelet Count 259 K/uL (130-400) Mean Platelet Volume 9.9 fL (7.4-10.4) Neutrophils (%) (Auto) 92.0 % Lymphocytes (%) (Auto) 3.3 % Monocytes (%) (Auto) 4.0 % Eosinophils (%) (Auto) 0.3 % Basophils (%) (Auto) 0.1 % Neutrophils # (Auto) 16.47 K/uL (1.4-6.5) Lymphocytes # (Auto) 0.59 K/uL (1.2-3.4) Monocytes # (Auto) 0.72 K/uL (0.11-0.59) Eosinophils # (Auto) 0.05 K/uL (0-0.5) Basophils # (Auto) 0.01 K/uL (0-0.2) RDW Standard Deviation 50.9 fL (36.4-46.3) RDW Coefficient of Variation 15.7 % (11.5-14.5) Immature Granulocyte % (Auto) 0.3 % Immature Granulocyte # (Auto) 0.05 K/uL (0.00-0.02) Red Blood Cell Morphology Unremarkable Erythrocyte Sedimentation Rate 83 mm/hr (0-21) Prothrombin Time 10.3 SECONDS (9.0-12.0) Prothromb Time International Ratio 1.0 (0.9-1.1) Activated Partial Thromboplast Time 22.1 SECONDS (21.0-31.0) Partial Thromboplastin Ratio 0.9 Anion Gap 10.0 mmol/L (3-11) Est Creatinine Clear Calc Drug Dose 60.6 ml/min Estimated GFR () 42.1 Estimated GFR (Non- 36.3 BUN/Creatinine Ratio 13.5 (10-20) Calcium Level 9.3 mg/dl (8.5-10.1) Phosphorus Level 2.3 mg/dl (2.5-4.9) Magnesium Level 1.8 mg/dl (1.8-2.4) Total Bilirubin 0.5 mg/dl (0.2-1) Aspartate Amino Transf (AST/SGOT) 49 U/L (15-37) Alanine Aminotransferase (ALT/SGPT) 59 U/L (12-78) Alkaline Phosphatase 91 U/L (45-117) Total Creatine Kinase 274 U/L (26-192) Creatine Kinase MB 2.8 ng/ml (0.5-3.6) Creatine Kinase MB Ratio 1.0 (0-3.0) Troponin I < 0.015 ng/ml (0-0.045) C-Reactive Protein 3.48 mg/dl (0-0.29) Pro-B-Type Natriuretic Peptide 155 pg/ml (0-900) Total Protein 8.1 gm/dl (6.4-8.2) Albumin 3.3 gm/dl (3.4-5.0) Globulin 4.8 gm/dl (2.5-4.0) Albumin/Globulin Ratio 0.7 (0.9-2) Lipase 225 U/L (73-393) Beta-Hydroxybutyric Acid mg/dL (0.2-2.81) Chemistry Specimen Hemolysis Bedside Lactic Acid Venous 3.16 mmol/L (0.90-1.70) Venous Blood pH 7.36 (7.36-7.41) Venous Blood Partial Pressure CO2 49 mmHg (38.0-50.0) Venous Blood Partial Pressure O2 26 mmHg Venous Blood HCO3 27 mmol/L Venous Blood Oxygen Saturation < 60.0 % Venous Blood Base Excess 1.1 mEq/L Urine Color YELLOW Urine Appearance CLEAR (CLEAR) Urine pH 5.0 (4.5-7.5) Urine Specific [place] 1.013 (1.000-1.030) Urine Protein NEG (NEG) Urine Glucose (UA) NEG (NEG) Urine Ketones NEG (NEG) Urine Occult Blood 3+ (NEG) Urine Nitrite NEG (NEG) Urine Bilirubin NEG (NEG) Urine Urobilinogen NEG (NEG) Urine Leukocyte Esterase NEG (NEG) Urine WBC (Auto) 0 /hpf (0-5) Urine RBC (Auto) 0-4 /hpf (0-4) Urine Hyaline Casts (Auto) 1-5 /lpf (0-5) Urine Epithelial Cells (Auto) 0-5 /lpf (0-5) Urine Bacteria (Auto) NEG (NEG) Test 06/12/18 20:59 06/12/18 21:11 Bedside Glucose 196 mg/dl (70-90) Lactic Acid Level 2.5 mmol/L (0.4-2.0) Procalcitonin 0.81 ng/ml (0-0.5) Laboratory results per my review. Medications Administered Medications (Trade) Dose Ordered Sig/Fatoumata Route Start Time Stop Time Status Last Admin Dose Admin Levofloxacin (Levaquin / D5W) 750 mg NOW STAT IV 06/12/18 18:02 06/12/18 18:03 DC 06/12/18 18:28 750 MG Sodium Chloride 500 ml @ 999 mls/hr Q31M STAT IV 06/12/18 19:33 06/12/18 20:03 DC 06/12/18 19:33 999 MLS/HR Ipratropium [place] (Atrovent 0.02% 0.5MG/2.5ML Neb) 0.5 mg NOW STAT INH 06/12/18 20:29 06/12/18 20:30 DC 06/12/18 20:29 0.5 MG Levalbuterol (Xopenex 1.25MG/ 0.5ML Neb) 1.25 mg NOW STAT INH 06/12/18 20:29 06/12/18 20:30 DC 06/12/18 20:29 1.25 MG Methylprednisolone Sodium Succinate 20 mg/Syringe 0.32 ml @ 1.5 mls/min TODAY@2045 ONCE IV 06/12/18 20:45 06/12/18 20:46 DC 06/12/18 21:00 1.5 MLS/MIN Insulin Glargine (Lantus Solostar Pen) 90 units ONE STAT SC 06/12/18 20:35 06/12/18 20:36 DC 06/12/18 21:01 90 UNITS Acetaminophen (Tylenol Tab) 650 mg 2127 ONCE PO 06/12/18 21:28 06/12/18 21:35 DC 06/12/18 22:02 650 MG ECG Per My Interpretation Indication: SOB/dyspnea Rate (beats per minute): 117 Rhythm: sinus tachycardia Findings: RBBB, other (No PVCs) Comparison ECG Date: 03/01/18 Change: no significant change (Increased rate otherwise no significant change) ED Course 1707: The patient was evaluated in room C5. A complete history and physical examination were performed. 1801: Levofloxacin 750mg IV 1844: I reevaluated the patient. I spoke with the patient's daughter and updated her on the patient's findings. 1932: Levofloxacin 750mg IV 2024: Upon reevaluation, the patient will be further evaluated. I discussed results and treatment plan with her and her daughter. They verbalize agreement and understanding. I spoke with Dr. Cuellar of [facility]. The patient will be evaluated for further management and care. Medical Decision Differential diagnosis: Etiologies such as viral syndrome, otitis, pharyngitis, pneumonia, influenza, meningitis, urinary tract infection, sepsis, bacteremia, as well as others were entertained. Nursing notes reviewed. Additional history is obtained from the prehospital personnel. Additional history is obtained from patient's daughter. The patient is a 62-year-old female who presented to the emergency department for an evaluation of difficulty breathing. The patient was found to have a fever as well as tachypnea. The patient has a trach and had significant output from the trach which was suctioned. The patient was treated with IV fluids as well as IV antibiotics. She received Tylenol and a bronchodilator treatment prior to arrival. I discussed patient's laboratory and radiographic studies with her. I also discussed her case with the on-call [facility] hospitalist group. They have agreed to evaluate patient in the emergency department for further management and disposition. Medication Reconcilliation Current Medication List: was personally reviewed by me Blood Pressure Screening Patient's blood pressure: Elevated blood pressure Referred to hospitalist. Consults Time Called: 2016 Consulting Physician: Dr. Cuellar - [facility] Returned Call: 2019 I discussed the patient's case with Dr. Cuellar. The patient will be evaluated for further management. Impression Primary Impression: Pneumonia Additional Impressions: Respiratory distress Fever Scribe Attestation The scribe's documentation has been prepared under my direction and personally reviewed by me in its entirety. I confirm that the note above accurately reflects all work, treatment, procedures, and medical decision making performed by me. Departure Information Dispostion Being Evaluated By Hospitalist Rowan Castro D.O. (PCP) Forms HOME CARE DOCUMENTATION FORM, IMPORTANT VISIT INFORMATION Patient Instructions My [facility] Problem Qualifiers Primary Impression: Pneumonia Pneumonia type: due to unspecified organism Laterality: unspecified laterality Lung location: unspecified part of lung Qualified Codes: J18.9 - Pneumonia, unspecified organism Additional Impressions: Fever Fever type: unspecified Qualified Codes: R50.9 - Fever, unspecified
--- NOTE | 2018-06-12 17:48 | DIAGNOSTIC IMAGING REPORT ---
CHEST ONE VIEW PORTABLE CLINICAL HISTORY: Sepsis dyspnea COMPARISON STUDY: 02/27/2018 FINDINGS: Moderate cardiac megaly. Tracheostomy tube in good position. Prominent pulmonary vasculature. IMPRESSION: Cardiomegaly with findings of developing congestive heart failure The above report was generated using voice recognition software. It may contain grammatical, syntax or spelling errors. Electronically signed by: Neftali Trotter M.D. 06/12/2018 5:47 PM Dictated Date/Time: 06/12/2018 5:46 PM
[2018-06-12 17:54] LABS: HEMOGLOBIN 12.5 g/dL (12.0-16.0); MEAN CELL VOLUME 88.7 fL (80-100); MEAN CORPUSCULAR HEMOGLOBIN 27.7 pg (25-34); MEAN CORPUSCULAR HGB CONC 31.3 g/dl (32-36); MEAN PLATELET VOLUME 9.9 fL (7.4-10.4); PLATELET COUNT 259 K/uL (130-400); RED CELL DISTRIBUTION WIDTH CV 15.7 % (11.5-14.5); RED CELL DISTRIBUTION WIDTH SD 50.9 fL (36.4-46.3); WHITE BLOOD COUNT 17.89 K/uL (4.8-10.8)
[2018-06-12] MEDS ORDERED: MULT-506 PO (17:59)
[2018-06-12] MEDS ORDERED: MONT1TAB3 PO (17:59)
[2018-06-12] MEDS ORDERED: INSPMPHMLG (17:59)
[2018-06-12] MEDS ORDERED: GUAI1TAB75 PO (17:59)
[2018-06-12] MEDS ORDERED: INSDGIPEN SC (17:59)
[2018-06-12] MEDS ORDERED: CLR/5 PO (17:59)
[2018-06-12] MEDS ORDERED: BENZ100C84 PO (17:59)
[2018-06-12] MEDS ORDERED: ASPI81TA28 PO (17:59)
[2018-06-12] MEDS ORDERED: CLOTCRE33 TOP (17:59)
[2018-06-12] MEDS ORDERED: NZRCR TOP (17:59)
[2018-06-12] MEDS ORDERED: TOPI100T20 PO ×2 (17:59)
[2018-06-12] MEDS ORDERED: SPIR25TA PO (17:59)
[2018-06-12] MEDS ORDERED: ACET-1257 PO (17:59)
[2018-06-12] MEDS ORDERED: ALBU18002 INH (17:59)
[2018-06-12] MEDS ORDERED: POTA-65 PO (17:59)
[2018-06-12] MEDS ORDERED: INSDGI SC (17:59)
[2018-06-12] MEDS ORDERED: NTRGSL/4 UT (17:59)
[2018-06-12] MEDS ORDERED: IPRA-64 INH (17:59)
[2018-06-12] MEDS ORDERED: ATV/1 PO (17:59)
[2018-06-12] MEDS ORDERED: FOLI1TAB8 PO (17:59)
[2018-06-12] MEDS ORDERED: METO25TA56 PO (17:59)
[2018-06-12] MEDS ORDERED: ISOS60TA2 PO (17:59)
[2018-06-12] MEDS ORDERED: TRAM-10 PO (17:59)
[2018-06-12] MEDS ORDERED: BUPR100T8 PO (17:59)
[2018-06-12] MEDS ORDERED: PANT40TA PO (17:59)
[2018-06-12] MEDS ORDERED: DOCU-94 PO (17:59)
[2018-06-12] MEDS ORDERED: ERGO500037 PO (17:59)
[2018-06-12] MEDS ORDERED: INSU100I XX (17:59)
[2018-06-12] MEDS ORDERED: LEVO200T6 PO ×2 (17:59)
[2018-06-12] MEDS ORDERED: ATOR-22 PO (17:59)
[2018-06-12] MEDS ORDERED: TORS20TA2 PO (17:59)
[2018-06-12] MEDS ORDERED: IPRA1AER2 INH (17:59)
[2018-06-12] MEDS ORDERED: TRIA0.5C4 TOP (17:59)
[2018-06-12] MEDS ORDERED: [UNRECOGNIZED DRUG - CODE] TR (17:59)
[2018-06-12] MEDS ORDERED: OXGN (17:59)
[2018-06-12] MEDS ORDERED: LEVAQUIN 750MG / 150ML D5W IV STA (18:02)
[2018-06-12 18:03] LABS: PTT PATIENT 22.1 SECONDS (21.0-31.0)
[2018-06-12 18:34] LABS: ALBUMIN 3.3 gm/dl (3.4-5.0); ALT/SGPT 59 U/L (12-78); AST/SGOT 49 U/L (15-37); BLOOD UREA NITROGEN 21 mg/dl (7-18); CALCIUM 9.3 mg/dl (8.5-10.1); CARBON DIOXIDE 24 mmol/L (21-32); CREATININE 1.53 mg/dl (0.60-1.20); GLUCOSE 184 mg/dl (70-99); LIPASE 225 U/L (73-393); POTASSIUM 4.3 mmol/L (3.5-5.1); SODIUM 137 mmol/L (136-145)
[2018-06-12 18:39] LABS: ALKALINE PHOSPHATASE 91 U/L (45-117); CKMB 2.8 ng/ml (0.5-3.6); PHOSPHORUS 2.3 mg/dl (2.5-4.9); TOTAL PROTEIN 8.1 gm/dl (6.4-8.2)
[2018-06-12 18:41] LABS: BASO % 0.1 %; BASO ABS # 0.01 K/uL (0-0.2); EOS % 0.3 %; EOS ABS # 0.05 K/uL (0-0.5); IG# 0.05 K/uL (0.00-0.02); LYMPH % 3.3 %; LYMPH ABS # 0.59 K/uL (1.2-3.4); MONO ABS # 0.72 K/uL (0.11-0.59); NEUT ABS # 16.47 K/uL (1.4-6.5)
[2018-06-12] MEDS ORDERED: SODIUM CHLORIDE 0.9% 500ML 500 ML IV STA (19:33)
[2018-06-12] MEDS ORDERED: LEVALBUTEROL/IPRATROPIUM NEB INH STA (20:24)
[2018-06-12] MEDS ORDERED: FUROSEMIDE INJ 60 MG in SYRINGE 0 ML IV STA (20:24)
[2018-06-12] MEDS ORDERED: IPRATROPIUM BROMIDE NEB SOLN 0.02% 2.5 ML VIAL INH STA (20:29)
[2018-06-12] MEDS ORDERED: LEVALBUTEROL 1.25MG/0.5ML NEB INH STA (20:29)
[2018-06-12] MEDS ORDERED: LEVALBUTEROL/IPRATROPIUM NEB INH PRN ×2 (20:30→22:15)
[2018-06-12] MEDS ORDERED: IPRATROPIUM BROMIDE NEB SOLN 0.02% 2.5 ML VIAL INH PRN (20:30)
[2018-06-12] MEDS ORDERED: LEVALBUTEROL 1.25MG/0.5ML NEB INH PRN (20:30)
[2018-06-12] MEDS ORDERED: FUROSEMIDE 40 MG/4 ML VIAL IV STA (20:30)
[2018-06-12] MEDS ORDERED: INSULIN GLARGINE SOLOSTAR 100 UNITS/ML 3 ML PEN SC STA (20:35)
[2018-06-12] MEDS ORDERED: METHYLPREDNISOLONE 125 MG VIAL ONE (20:40)
[2018-06-12] MEDS ORDERED: GLUCOSE 40% GEL 15 GM TUBE PO PRN ×2 (20:45→22:15)
[2018-06-12] MEDS ORDERED: GLUCAGON FOR INJ 1 MG VIAL IM PRN (20:45)
[2018-06-12] MEDS ORDERED: DEXTROSE 50% 50 ML SYR IV PRN ×2 (20:45→22:15)
[2018-06-12] MEDS ORDERED: CARBOHYDRATES FOR HYPOGLYCEMIA PO PRN ×2 (20:45→22:15)
[2018-06-12] MEDS ORDERED: GLUCOSE 10 TABS/TUBE PO PRN ×2 (20:45→22:15)
[2018-06-12] MEDS ORDERED: METHYLPREDNISOLONE IV 20 MG in SYRINGE 0 ML IV ONE (20:45)
[2018-06-12 21:05] VITALS: PULSE 87; O2SAT 98
[2018-06-12] MEDS ORDERED: ACETAMINOPHEN 325 MG TAB PO ONE (21:28)
[2018-06-12] MEDS ORDERED: ACETAMINOPHEN 325 MG TAB PO PRN ×2 (21:30→22:15)
--- NOTE | 2018-06-12 22:01 | Progress Note ---
Progress Note Post Crystalloid Evaluation Date: Jun 13, 2018 Time: 22:00 Subjective Junky cough tracheostomy as per daughter Increased shortness of breath No chest pain Physical Exam Vital Signs: Vital Signs Date Time Temp Pulse Resp B/P (MAP) Pulse Ox O2 Delivery O2 Flow Rate FiO2 06/12/18 21:46 113 06/12/18 21:05 18 98 Trach Collar 15.0 50 06/12/18 20:01 144/64 06/12/18 17:25 38.2 Lungs: + respiratory distress Heart: + tachycardia Peripheral Pulse: Weak Capillary Refill: Delayed (2 seconds or longer) Assessment & Plan Presence of: Severe Sepsis Severe sepsis SIRS plus hypoxemia plus lactic acidosis plus ARF on CRI secondary to above hx MRSA CS, Levaquin Add IV Vancomycin for MRSA coverage given severe sepsis criteria (patient allergic to Doxycycline, hx clindamycin resistant MRSA) Gentle IV hydration given history of diastolic dysfunction. Follow lactic acid.
--- NOTE | 2018-06-12 22:01 | History and Physical ---
History & Physical Date & Time of Service: Jun 12, 2018 at 21:51 Chief Complaint: Fever, Chills, Ams, Shakey Primary Care Physician: Rowan Leos D.O. History of Present Illness Source: patient, family (daughter at bedside), clinic records, hospital records This is a 62-year-old female with a PMH of chronic right-sided heart failure, obesity hypoventilation syndrome, COPD, bronchiectasis, s/p tracheostomy in 2007 and other problems listed below who presents with fever and generalized weakness starting this afternoon. Per daughter, patient was in normal state of health earlier today but then began to act generally weak and lethargic around 2 PM. Had a productive white cough, shortness of breath and felt shaky. Was most recently admitted in February 2018 for CHF exacerbation and diuresed approximately 50 pounds. Has successfully kept that weight off since discharge and has been compliant with daily diuretics (torsemide 20 mg twice daily, spironolactone 25 mg daily). Has also reportedly maintained strict compliance with diabetic and low-sodium diet, with a 2 L fluid restriction. Denies any lightheadedness, visual changes, chest pain, wheezing, abdominal pain, nausea, vomiting, bowel or bladder changes. Lower extremity edema is at baseline. Uses oxygen at night. In route to the ED, EMS reported a fever of 103.1. Past Medical/Surgical History Medical Problems: (1) Anxiety Status: Chronic (2) Bronchiectasis Status: Chronic (3) Chronic respiratory failure Status: Chronic (4) CKD (chronic kidney disease), stage III Status: Chronic (5) COPD (chronic obstructive pulmonary disease) Status: Chronic (6) DM type 2 (diabetes mellitus, type 2) Status: Chronic (7) Dyslipidemia Status: Chronic (8) HTN (hypertension) Status: Chronic (9) Hypothyroid Status: Chronic (10) Hypoventilation associated with obesity Status: Chronic (11) Migraine Status: Chronic (12) MRSA (methicillin resistant staph aureus) culture positive Permanent Comment: sputum 11/2015 Status: Chronic (13) Tracheostomy in place Status: Chronic Surgical Problems: (1) History of appendectomy Status: Chronic (2) History of cholecystectomy Status: Chronic (3) History of hysterectomy Status: Chronic (4) History of tonsillectomy and adenoidectomy Status: Chronic (5) S/P IVC filter Status: Chronic Family History Diabetes mellitus FH: COPD (chronic obstructive pulmonary disease) MOTHER Gallbladder disease Hypertension Kidney disease Seizures Social History Smoking Status: Never Smoker Drug Use: none Marital Status: Housing status: lives with family Occupational Status: disabled Immunizations History of Influenza Vaccine: Yes Influenza Vaccine Date: Sep 27, 2016 History of Tetanus Vaccine?: Yes Tetanus Immunization Date: Jul 29, 2011 History of Pneumococcal: Yes Pneumococcal Date: Sep 27, 2016 Allergies Coded Allergies: Amitriptyline (Verified Allergy, Unknown, `, 06/12/18) Gabapentin (Verified Allergy, Unknown, `, 06/12/18) Metformin (Verified Allergy, Unknown, `, 06/12/18) Penicillins (Verified Allergy, Unknown, `, 06/12/18) Pseudoephedrine (Verified Allergy, Unknown, `, 06/12/18) Tetracycline (Verified Allergy, Unknown, `, 06/12/18) Home Medications Scheduled Aspirin (Aspirin Ec), 81 MG PO DAILY Atorvastatin (Lipitor), 20 MG PO DAILY Benzonatate (Tessalon Perles), 100 MG PO TID Bupropion (Wellbutrin Sr), 300 MG PO DAILY Clotrimazole W/ Betamethasone (Lotrisone), 1 APPLN TOP BID Desloratadine (Clarinex), 5 MG PO DAILY Docusate Sodium (Colace), 100 MG PO BID Ergocalciferol (Vitamin D 97742 Unit), 50,000 UNIT PO MWF Folic Acid (Folvite), 1 MG PO DAILY Home O2 Therapy (Oxygen), 5 LITERS NA PRN Hydrogen Peroxide (Hydrogen Peroxide), 1 PINT TR UD Insulin Glargine (Lantus), 75 UNITS SC BID Insulin Human Lispro (Insulin Humalog Pump ), 1 EA N/A UD Insulin Lispro (Human) (Humalog), 1 DOSE XX DAILY Ipratropium-Albuterol (Duoneb), 1 TREATMENT INH QID Ipratropium-Albuterol (Combivent Respimat), 1 PUFFS INH QID Isosorbide Mononitrate (Imdur Ext Rel), 60 MG PO DAILY Ketoconazole (Ketoconazole), 1 APPLN TOP BID Levothyroxine Sodium (Levothyroxine Sodium), 300 MCG PO 2XWK Levothyroxine Sodium (Levothyroxine Sodium), 200 MCG PO 5XWK Metoprolol Tartrate (Lopressor) (Lopressor), 12.5 MG PO BID Montelukast Sodium (Singulair), 10 MG PO DAILY Multivitamin (Multivitamin), 1 TAB PO DAILY Pantoprazole (Protonix), 40 MG PO DAILY Potassium Chloride (Potassium Chloride ER), 20 MEQ PO DAILY Spironolactone (Aldactone), 25 MG PO DAILY Topiramate (Topamax), 100 MG PO QAM Topiramate (Topamax), 200 MG PO HS Torsemide (Demadex), 20 MG PO BID Tramadol (Ultram), 50 MG PO BID Triamcinolone Acet (Triamcinolone Acetonide), 1 APPLN TOP BID Scheduled PRN Acetaminophen (Tylenol Extra Strength), 1 DOSE PO UD PRN for Pain Albuterol Sulfate (Proair Respiclick), 2 PUFFS INH Q4 PRN for SOB/Wheezing Guaifenesin La (Guaifenesin Er), 600 MG PO BID PRN for Cough Insulin Glargine (Lantus Solostar), 1 DOSE SC UD PRN for PUMP FAILURE Lorazepam (Ativan), 1 MG PO Q8 PRN for ANXIETY, AGITATION OR SLEEP Nitroglycerin (Nitrostat), 0.4 MG UT PRN PRN for Chest Pain Review of Systems Ten systems reviewed and negative except as noted in the HPI. Physical Exam Vital Signs Date Time Temp Pulse Resp B/P (MAP) Pulse Ox O2 Delivery O2 Flow Rate FiO2 06/12/18 21:46 113 06/12/18 21:05 87 18 98 Trach Collar 15.0 50 06/12/18 20:09 116 39 92 06/12/18 20:01 144/64 06/12/18 19:39 116 46 93 06/12/18 19:32 135/76 06/12/18 19:09 117 38 94 06/12/18 19:02 151/79 06/12/18 18:39 114 28 93 06/12/18 18:31 127/64 06/12/18 18:30 115 40 127/64 93 Room Air 06/12/18 18:09 114 30 92 06/12/18 17:46 115 06/12/18 17:39 113 26 06/12/18 17:25 38.2 122 14 139/80 92 Room Air 06/12/18 17:25 92 Room Air 06/12/18 17:16 139/80 General Appearance: + mild distress, + obese (morbid) Eyes: normal inspection, PERRL, sclerae normal ENT: normal ENT inspection, hearing grossly normal, pharynx normal (dry mucous membranes ) Neck: supple, thyroid normal, trachea midline, + pertinent finding (s/p tracheostomy) Respiratory/Chest: chest non-tender, no respiratory distress, no accessory muscle use, + decreased breath sounds, + rhonchi (scattered) Cardiovascular: normal peripheral pulses, + tachycardia, + pertinent finding ( trace BLE edema) Abdomen/GI: non tender, soft, no organomegaly Extremities/Musculoskelatal: normal inspection, no calf tenderness, no pedal edema Neurologic/Psych: no motor/sensory deficits, alert, normal mood/affect, oriented x 3 Skin: normal color, warm/dry, + pertinent finding (BLE with a few open wounds, no drainage or surrounding erythema) Diagnostics Laboratory Results Results Past 24 Hours Test 06/12/18 17:40 06/12/18 17:51 06/12/18 18:49 06/12/18 19:50 Range/Units White Blood Count 17.89 4.8-10.8 K/uL Red Blood Count 4.51 4.2-5.4 M/uL Hemoglobin 12.5 12.0-16.0 g/dL Hematocrit 40.0 37-47 % Mean Corpuscular Volume 88.7 80-100 fL Mean Corpuscular Hemoglobin 27.7 25-34 pg Mean Corpuscular Hemoglobin Concent 31.3 32-36 g/dl Platelet Count 259 130-400 K/uL Mean Platelet Volume 9.9 7.4-10.4 fL Neutrophils (%) (Auto) 92.0 % Lymphocytes (%) (Auto) 3.3 % Monocytes (%) (Auto) 4.0 % Eosinophils (%) (Auto) 0.3 % Basophils (%) (Auto) 0.1 % Neutrophils # (Auto) 16.47 1.4-6.5 K/uL Lymphocytes # (Auto) 0.59 1.2-3.4 K/uL Monocytes # (Auto) 0.72 0.11-0.59 K/uL Eosinophils # (Auto) 0.05 0-0.5 K/uL Basophils # (Auto) 0.01 0-0.2 K/uL RDW Standard Deviation 50.9 36.4-46.3 fL RDW Coefficient of Variation 15.7 11.5-14.5 % Immature Granulocyte % (Auto) 0.3 % Immature Granulocyte # (Auto) 0.05 0.00-0.02 K/uL Red Blood Cell Morphology Unremarkable Erythrocyte Sedimentation Rate 83 0-21 mm/hr Prothrombin Time 10.3 9.0-12.0 SECONDS Prothromb Time International Ratio 1.0 0.9-1.1 Activated Partial Thromboplast Time 22.1 21.0-31.0 SECONDS Partial Thromboplastin Ratio 0.9 Sodium Level 137 136-145 mmol/L Potassium Level 4.3 3.5-5.1 mmol/L Chloride Level 103 98-107 mmol/L Carbon Dioxide Level 24 21-32 mmol/L Anion Gap 10.0 3-11 mmol/L Blood Urea Nitrogen 21 7-18 mg/dl Creatinine 1.53 0.60-1.20 mg/dl Est Creatinine Clear Calc Drug Dose 60.6 ml/min Estimated GFR () 42.1 Estimated GFR (Non- 36.3 BUN/Creatinine Ratio 13.5 10-20 Random Glucose 184 70-99 mg/dl Calcium Level 9.3 8.5-10.1 mg/dl Phosphorus Level 2.3 2.5-4.9 mg/dl Magnesium Level 1.8 1.8-2.4 mg/dl Total Bilirubin 0.5 0.2-1 mg/dl Aspartate Amino Transf (AST/SGOT) 49 15-37 U/L Alanine Aminotransferase (ALT/SGPT) 59 12-78 U/L Alkaline Phosphatase 91 45-117 U/L Total Creatine Kinase 274 26-192 U/L Creatine Kinase MB 2.8 0.5-3.6 ng/ml Creatine Kinase MB Ratio 1.0 0-3.0 Troponin I < 0.015 0-0.045 ng/ml C-Reactive Protein 3.48 0-0.29 mg/dl Pro-B-Type Natriuretic Peptide 155 0-900 pg/ml Total Protein 8.1 6.4-8.2 gm/dl Albumin 3.3 3.4-5.0 gm/dl Globulin 4.8 2.5-4.0 gm/dl Albumin/Globulin Ratio 0.7 0.9-2 Lipase 225 73-393 U/L Beta-Hydroxybutyric Acid 0.2-2.81 mg/dL Chemistry Specimen Hemolysis Bedside Lactic Acid Venous 3.16 0.90-1.70 mmol/L Venous Blood pH 7.36 7.36-7.41 Venous Blood Partial Pressure CO2 49 38.0-50.0 mmHg Venous Blood Partial Pressure O2 26 mmHg Venous Blood HCO3 27 mmol/L Venous Blood Oxygen Saturation < 60.0 % Venous Blood Base Excess 1.1 mEq/L Urine Color YELLOW Urine Appearance CLEAR CLEAR Urine pH 5.0 4.5-7.5 Urine Specific Vincent 1.013 1.000-1.030 Urine Protein NEG NEG Urine Glucose (UA) NEG NEG Urine Ketones NEG NEG Urine Occult Blood 3+ NEG Urine Nitrite NEG NEG Urine Bilirubin NEG NEG Urine Urobilinogen NEG NEG Urine Leukocyte Esterase NEG NEG Urine WBC (Auto) 0 0-5 /hpf Urine RBC (Auto) 0-4 0-4 /hpf Urine Hyaline Casts (Auto) 1-5 0-5 /lpf Urine Epithelial Cells (Auto) 0-5 0-5 /lpf Urine Bacteria (Auto) NEG NEG Test 06/12/18 20:59 06/12/18 21:11 Range/Units Bedside Glucose 196 70-90 mg/dl Lactic Acid Level 2.5 0.4-2.0 mmol/L Microbiology Results 06/12/18 Blood Culture, Received Pending 06/12/18 Blood Culture, Received Pending 06/12/18 Gram Stain, Received Pending 06/12/18 Sputum Culture, Received Pending Diagnostic Radiology CXR: IMPRESSION: Cardiomegaly with findings of developing congestive heart failure EKG Sinus tachycardia, Right bundle branch block, Left anterior fascicular block Bifascicular block Impression Assessment and Plan This is a 62-year-old female with a PMH of chronic right-sided heart failure, obesity hypoventilation syndrome, COPD, bronchiectasis, s/p tracheostomy in 2007 and other problems listed below who presents with fever and generalized weakness starting this afternoon. Complicated bronchitis -In setting of COPD, bronchiectasis, obesity hypoventilation syndrome -Meets SIRS criteria with fever of 38.2, tachycardia of 122 -Oxygen saturation stable at 97% -Leukocytosis of 17.8, no clear source of infection on CXR, urine -Lactic acid elevated to 2.5. Procalcitonin pending -Given levaquin, xopenex, IV solu-medrol in ED -Blood and sputum cultures pending -Continue neb treatments, steroids, empiric abx (see addendum) -Continue home Tessalon Perles, guaifenesin -Pulm consult placed Chronic right-sided heart failure -Was admitted for exacerbation in February 2018, diuresed 50 lbs -Echo from Dec 2017 with normal LV function, EF : 55-60%, grade 1 diastolic dysfunction -Has kept weight stable with fluid restriction, low Na diet, aggressive PO diuresis -Continue torsemide 20mg BID, spirolactone 25mg daily -Strict I&Os, daily weights CKD III -Cr 1.53, GFR 36 -At baseline -Monitor DM II -Uses an insulin pump but did not bring supplies -Recent a1c in March 2018 of 6.4 -Basal/bolus insulin per protocol -BSG AC HS CAD -Stable, no chest pain -Continue aspirin, metoprolol, nitrates, statin HTN -Currently normotensive -Continue metoprolol, Imdur Mood disorder -Cont bupropion, Ativan PRN S/p tracheostomy -Trach care, per nursing -Cont home O2 HS DVT Ppx: SQ heparin Code status: FULL per discussion with patient, daughter PCP: [facility] Dispo: Admit to med/surg. Patient seen in collaboration with Dr. Cuellar. Please see addendum. Resuscitation Status VTE Prophylaxis Will order VTE Prophylaxis: Yes Assessment/Plan IM ATTENDING : Patient seen and examined. History obtained from patient, daughter, and records. Preceding documentation by Ms. Beth Red PA-C reviewed. FINAL ASSESSMENT AND PLAN as follows : In addition, ABG showed pH of 7.41, pCO2 of 38, pO2 of 118. O2 sats 98 on 15 liters. FINAL ASSESSMENT AND PLAN: As follows, 1. Acute hypoxemic respiratory failure secondary to chronic obstructive pulmonary disease exacerbation secondary to complicated bronchitis. 2. severe sepsis SIRS plus hypoxemia plus lactic acidosis plus ARF on CRI secondary to above hx MRSA 3. Chronic diastolic heart failure, ejection fraction of 55% to 60%. congestion on x-ray, patient on the dry side. Weight down from documented weight from recent confinement. 4. hx RASHAAD, hx RSHF as per records 5. History of cardiac arrest per records 6. hx difficult/prolonged intubation sp tracheostomy. 7. Hypertension, blood pressure on the lower side. 8. DM2, insulin requiring, well controlled as of recent HgA1c of 6.4, last March 2018. 9. History of deep venous thrombosis status post anticoagulation status post IVC filter placement. 10. Ovarian cancer status post surgery. PCU supplemental O2 CS, Levaquin Add IV Vancomycin for MRSA coverage given severe sepsis criteria (patient allergic to Doxycycline, hx clindamycin resistant MRSA) Steroids, nebs Pulmonary consult RE respiratory failure (Patient known to [facility].) Gentle IV hydration, hold home diuretics until patient is euvolemic. monitor renal function basal insulin, ISS BG goal 140-180. Clarify insulin pump use with patient's daughter. PT, OT eval. DVT prophylaxis, Heparin subQ. Full code. Patient's daughter requesting updates from providers. Ms. Oscar Byrnes thru [phone].
[2018-06-12] MEDS ORDERED: METOPROLOL TARTRATE 25 MG TAB PO ONE (22:09)
[2018-06-12] MEDS ORDERED: LACTOBACILLUS ACIDOPHILUS (FLORANEX) TAB PO ONE (22:09)
[2018-06-12] MEDS ORDERED: INSULIN ASPART 100 UNITS/ML 3 ML PEN SC ONE (22:09)
[2018-06-12] MEDS ORDERED: GLUCAGON FOR INJ 1 MG VIAL SQ PRN (22:15)
[2018-06-12] MEDS ORDERED: PROCHLORPERAZINE INJ 5 MG in SYRINGE 4 ML IV PRN (22:15)
[2018-06-12] MEDS ORDERED: CLINDAMYCIN IV 600 MG in DEXTROSE 5% 50ML 50 ML IV ONE (22:15)
[2018-06-12] MEDS ORDERED: HYDROmorphone INJ 0.5 MG/0.5 ML SYR IV PRN (22:15)
[2018-06-12] MEDS ORDERED: LORAZEPAM 1 MG TAB PO PRN (22:15)
[2018-06-12] MEDS ORDERED: SODIUM CHLORIDE 0.9% 1000ML 1,000 ML IV ONE (22:15)
[2018-06-12] MEDS ORDERED: TRAMADOL HCL 50 MG TAB PO PRN (22:15)
[2018-06-12] MEDS ORDERED: NITROGLYCERIN 0.4 MG SL PER TAB CHARGE UT PRN (22:15)
[2018-06-12] MEDS ORDERED: CLINDAMYCIN CONSULT ACTIVE PRN (23:15)
[2018-06-12] MEDS ORDERED: VANCOMYCIN CONSULT ACTIVE PRN (23:30)
[2018-06-13] VITALS (11 sets, daily range): BP systolic 112–133; BP diastolic 69–79; PULSE 72–104; TEMP 36.6–37.3; O2SAT 94–100; BMI 64.9
[2018-06-13] MEDS ORDERED: VANCOMYCIN IV 2,500 MG in SODIUM CHLORIDE 0.9% 500ML 500 ML IV ONE ×2
[2018-06-13] MEDS: ALBUMIN HUMAN 25% 12.5 GM/50 ML VIAL IV SCH ×2 (00:22→00:45)
[2018-06-13] MEDS: IPRATROPIUM BROMIDE NEB SOLN 0.02% 2.5 ML VIAL INH SCH ×4 (01:43→19:10)
[2018-06-13] MEDS: LEVALBUTEROL 1.25MG/0.5ML NEB INH SCH ×4 (01:43→19:10)
[2018-06-13] MEDS ORDERED: LEVOFLOXACIN CONSULT ACTIVE PRN (02:15)
[2018-06-13] MEDS ORDERED: INSULIN ASPART 100 UNITS/ML 3 ML PEN SC ONE (02:48)
[2018-06-13] MEDS ORDERED: LEVALBUTEROL/IPRATROPIUM NEB INH SCH (03:00)
[2018-06-13] MEDS ORDERED: INSULIN GLARGINE SOLOSTAR 100 UNITS/ML 3 ML PEN SC ONE (03:30)
[2018-06-13] MEDS ORDERED: PNEUMOCOCCAL ADMINISTRATION CHARGE ONE (04:30)
[2018-06-13] MEDS ORDERED: PNEUMOCOCCAL POLYSACCHARIDES 25 MCG/0.5 ML VIAL/SYR IM. ONE (04:30)
--- NOTE | 2018-06-13 04:53 | HISTORY & PHYSICAL EXAMINATION ---
DATE OF ADMISSION: 06/12/2018 IM ATTENDING : Patient seen and examined. History obtained from patient, daughter, and records. Preceding documentation by Ms. Beth Red PA-C reviewed. FINAL ASSESSMENT AND PLAN as follows : In addition, ABG showed pH of 7.41, pCO2 of 38, pO2 of 118. O2 sats 98 on 15 liters. FINAL ASSESSMENT AND PLAN: As follows, 1. Acute hypoxemic respiratory failure secondary to chronic obstructive pulmonary disease exacerbation secondary to complicated bronchitis. 2. severe sepsis SIRS plus hypoxemia plus lactic acidosis plus ARF on CRI secondary to above hx MRSA 3. Chronic diastolic heart failure, ejection fraction of 55% to 60%. congestion on x-ray, patient on the dry side. Weight down from documented weight from recent confinement. 4. hx RASHAAD, hx RSHF as per records 5. History of cardiac arrest per records 6. hx difficult/prolonged intubation sp tracheostomy. 7. Hypertension, blood pressure on the lower side. 8. DM2, insulin requiring, well controlled as of recent HgA1c of 6.4, last March 2018. 9. History of deep venous thrombosis status post anticoagulation status post IVC filter placement. 10. Ovarian cancer status post surgery. PCU supplemental O2 CS, Levaquin Add IV Vancomycin for MRSA coverage given severe sepsis criteria (patient allergic to Doxycycline, hx clindamycin resistant MRSA) Steroids, nebs Pulmonary consult RE respiratory failure (Patient known to [facility].) Gentle IV hydration, hold home diuretics until patient is euvolemic. monitor renal function basal insulin, ISS BG goal 140-180. Clarify insulin pump use with patient's daughter. PT, OT eval. DVT prophylaxis, Heparin subQ. Full code. Patient's daughter requesting updates from providers. Ms. Oscar Byrnes thru [phone]. MAGUID
[2018-06-13] MEDS: HEPARIN SOD 5000 UNIT/0.5 ML CARP SQ SCH ×3 (06:51→20:55)
[2018-06-13] MEDS: LEVOTHYROXINE 200 MCG TAB PO SCH (06:52)
[2018-06-13 08:01] LABS: HEMATOCRIT 36.5 % (37-47); HEMOGLOBIN 11.5 g/dL (12.0-16.0); MEAN CELL VOLUME 89.2 fL (80-100); MEAN CORPUSCULAR HEMOGLOBIN 28.1 pg (25-34); MEAN CORPUSCULAR HGB CONC 31.5 g/dl (32-36); MEAN PLATELET VOLUME 9.6 fL (7.4-10.4); PLATELET COUNT 214 K/uL (130-400); RED CELL DISTRIBUTION WIDTH CV 15.9 % (11.5-14.5); RED CELL DISTRIBUTION WIDTH SD 52.1 fL (36.4-46.3); WHITE BLOOD COUNT 16.96 K/uL (4.8-10.8)
[2018-06-13] MEDS: MULTIVITAMIN TAB PO SCH (08:13)
[2018-06-13] MEDS: METOPROLOL TARTRATE 25 MG TAB PO SCH ×2 (08:13→20:50)
[2018-06-13] MEDS: ATORVASTATIN 20 MG TAB PO SCH (08:13)
[2018-06-13] MEDS: TOPIRAMATE 100 MG TAB PO SCH ×2 (08:14→20:51)
[2018-06-13] MEDS: ISOSORBIDE MONONITRATE 60 MG TABCR PO SCH (08:14)
[2018-06-13] MEDS: PANTOprazole SOD 40 MG TAB PO SCH (08:14)
[2018-06-13] MEDS: DOCUSATE SODIUM 100 MG CAP PO SCH ×2 (08:14→20:50)
[2018-06-13] MEDS: ASPIRIN 81 MG ECTAB PO SCH (08:14)
[2018-06-13] MEDS: BuPROPion SR 100 MG TABCR PO SCH ×2 (08:15→20:50)
[2018-06-13] MEDS: LACTOBACILLUS ACIDOPHILUS (FLORANEX) TAB PO SCH ×3 (08:15→17:46)
[2018-06-13] MEDS: INSULIN ASPART 100 UNITS/ML 3 ML PEN SC SCH ×2 (08:21→12:42)
[2018-06-13] MEDS: INSULIN GLARGINE SOLOSTAR 100 UNITS/ML 3 ML PEN SC SCH ×2 (08:22→20:54)
[2018-06-13 08:35] LABS: CALCIUM 8.5 mg/dl (8.5-10.1); CREATININE 1.6 mg/dl (0.60-1.20); POTASSIUM 3.8 mmol/L (3.5-5.1)
[2018-06-13 08:42] LABS: BASO % 0.1 %; BASO ABS # 0.01 K/uL (0-0.2); IG# 0.07 K/uL (0.00-0.02); LYMPH % 5.4 %; LYMPH ABS # 0.91 K/uL (1.2-3.4); MONO % 4.5 %; MONO ABS # 0.77 K/uL (0.11-0.59); NEUT % 89.6 %
[2018-06-13] MEDS ORDERED: TOPIRAMATE 100 MG TAB PO SCH (09:00)
[2018-06-13] MEDS ORDERED: AZITHROMYCIN 250 MG TAB PO SCH (09:00)
--- NOTE | 2018-06-13 11:15 | Pharmacy Progress Note ---
Pharmacy Abx Initial Consult Date of Service Jun 13, 2018. Pharmacy Dosing Scope Date of Consult: 06/13/18 Consultation requested by: Dr. Cuellar Pharmacy is consulted to initiate vancomycin IV and levaquin PO dosing therapy, order appropriate labs and adjust drug dose/frequency. Subjective The patient is a 62 year old female admitted on Jun 12, 2018 at 22:24. Objective Height (Feet): 5 Height (Inches): 2.00 Weight (Kilograms): 161.000 Vital Signs (Past 12Hrs) Vital Signs Past 12 Hours Date Time Temp Pulse Resp B/P (MAP) Pulse Ox O2 Delivery O2 Flow Rate FiO2 06/13/18 08:00 Trach Collar 28 06/13/18 07:04 37.0 80 24 120/79 (93) 100 Trach Collar 24 06/13/18 06:48 79 16 99 Trach Collar 6.0 28 06/13/18 03:32 36.9 82 19 126/70 (88) 98 Trach Collar 06/13/18 01:45 92 16 95 Trach Collar 6.0 28 06/13/18 01:37 37.3 104 33 112/69 Trach Collar 28 06/12/18 23:12 37.7 109 40 98/59 98 Lab Results (24Hrs) Laboratory Tests (24 Hours) Test 06/12/18 17:40 06/12/18 21:11 06/13/18 03:43 06/13/18 07:12 C-Reactive Protein 3.48 mg/dl (0-0.29) H Erythrocyte Sedimentation Rate 83 mm/hr (0-21) H Total Creatine Kinase 274 U/L (26-192) H Procalcitonin 0.81 ng/ml (0-0.5) H Lactic Acid Level 1.6 mmol/L (0.4-2.0) White Blood Count 16.96 K/uL (4.8-10.8) H Red Blood Count 4.09 M/uL (4.2-5.4) L Hemoglobin 11.5 g/dL (12.0-16.0) L Hematocrit 36.5 % (37-47) L Mean Corpuscular Volume 89.2 fL (80-100) Mean Corpuscular Hemoglobin 28.1 pg (25-34) Mean Corpuscular Hemoglobin Concent 31.5 g/dl (32-36) L Platelet Count 214 K/uL (130-400) Mean Platelet Volume 9.6 fL (7.4-10.4) Neutrophils (%) (Auto) 89.6 % Lymphocytes (%) (Auto) 5.4 % Monocytes (%) (Auto) 4.5 % Eosinophils (%) (Auto) 0.0 % Basophils (%) (Auto) 0.1 % Neutrophils # (Auto) 15.20 K/uL (1.4-6.5) H Lymphocytes # (Auto) 0.91 K/uL (1.2-3.4) L Monocytes # (Auto) 0.77 K/uL (0.11-0.59) H Eosinophils # (Auto) 0.00 K/uL (0-0.5) Basophils # (Auto) 0.01 K/uL (0-0.2) Micro Results Date/Time Source Procedure Growth Status 06/12/18 17:55 Blood Blood Culture Pending Received 06/12/18 17:40 Blood Blood Culture Pending Received 06/12/18 17:55 Sputum Trach. Tube Suction Gram Stain - Final Resulted 06/12/18 17:55 Sputum Trach. Tube Suction Sputum Culture Pending Resulted Risk Factors for Resistance * History of infection with a multidrug-resistant organism: sputum culture positive for MRSA 11/2015 [site of infection] [date] Assessment & Plan Assessment * 62 year old female who presented to the ED on 06/12/18 for generalized weakness , productive cough, and SOB * PMH includes right sided heart failure, COPD, CKD stage III, DM * Subsequently diagnosed with complicated bronchitis Plan Vancomycin IV * Loading dose: 2500 mg (15 mg/kg) * Vd ~0.54 L/kg, Ke ~0.054 hr-1, t1/2 13 hr * Maintenance dose: 1750 mg IV (10 mg/kg) every 18 hours, will give first dose earlier (scheduled for 1400) as patient's loading dose was 15mg/kg * Goal trough: 15 to 20 mcg/mL * Trough level ordered for 06/14/18 at 0730 * Extended dosing interval has been selected due to likelihood of drug accumulation in obese patient/patient with h/o CKD Levaquin * 750mg IV x1 on 06/12/18 * Currently receiving 750mg PO Q24H Pharmacy will continue to follow and will adjust dose/frequency as necessary. Thank you.
--- NOTE | 2018-06-13 11:52 | Progress Note ---
Internal Med Progress Note Date of Service: Jun 13, 2018. Provider Documentation: SUBJECTIVE: The patient was seen and examined in telemetry unit She is obese with multiple comorbid conditions including RASHAAD, chronic right- sided heart failure, diabetes and COPD She was admitted yesterday with sepsis and acute on chronic respiratory failure She has been feeling a little better since admission No acute symptoms OBJECTIVE: Vital Signs-as noted below Exam: General-no apparent distress at rest Eyes-normal ENT-normal Neck-supple Lungs-decreased breath sounds otherwise clear Heart-regular no murmur appreciated Abdomen-soft distended,, difficult to feel for any organs, bowel sounds present Extremities-chronic edema bilaterally, 1+ now Neuro-alert, awake and oriented 3 Lab data as noted below. ASSESSMENT & PLAN: This is a 62-year-old female with a PMH of chronic right-sided heart failure, obesity hypoventilation syndrome, COPD, bronchiectasis, s/p tracheostomy in 2007 and other problems listed below who presents with fever and generalized weakness starting this afternoon. Complicated bronchitis -In setting of COPD, bronchiectasis, obesity hypoventilation syndrome -Meets SIRS criteria with fever of 38.2, tachycardia of 122 -Leukocytosis of 17.8, no clear source of infection on CXR, urine -Lactic acid elevated to 2.5. Procalcitonin minimally high at 0.81 -Given Levaquin, Xopenex, IV solu-medrol in ED -Blood and sputum cultures pending -Continue neb treatments, steroids, empiric abx with Levaquin and Vancomycin -Continue home Tessalon Perles, guaifenesin -Pulm consulted -Clinically better Chronic right-sided heart failure:Compensated now -Was admitted for exacerbation in February 2018, diuresed 50 lbs -Echo from Dec 2017 with normal LV function, EF : 55-60%, grade 1 diastolic dysfunction -Has kept weight stable with fluid restriction, low Na diet, aggressive PO diuresis -Continue torsemide 20mg BID, spirolactone 25mg daily -Strict I&Os, daily weights -will keep her on dry side CKD III -Cr 1.53, GFR 36 -At baseline -Creatinine 1.6 today DM II -Uses an insulin pump but did not bring supplies -Recent a1c in March 2018 of 6.4 -Basal/bolus insulin per protocol -BSG AC HS -diabetic teaching CAD -Stable, no chest pain -Continue aspirin, metoprolol, nitrates, statin HTN -Currently normotensive -Continue metoprolol, Imdur Mood disorder -Cont bupropion, Ativan PRN S/p tracheostomy -Trach care, per nursing -Cont home O2 HS -no acute issue DVT Ppx: SQ heparin Code status: FULL per discussion with patient, daughter PCP: [facility] Dispo: Admit to med/surg. Will need a few days of Hospital care Vital Signs: Date Time Temp Pulse Resp B/P (MAP) Pulse Ox O2 Delivery O2 Flow Rate FiO2 06/13/18 08:00 Trach Collar 28 06/13/18 07:04 37.0 80 24 120/79 (93) 100 Trach Collar 24 06/13/18 06:48 79 16 99 Trach Collar 6.0 28 06/13/18 03:32 36.9 82 19 126/70 (88) 98 Trach Collar 06/13/18 01:45 92 16 95 Trach Collar 6.0 28 06/13/18 01:37 37.3 104 33 112/69 Trach Collar 28 06/12/18 23:12 37.7 109 40 98/59 98 06/12/18 22:33 109 40 98/59 98 Trach Collar 15.0 06/12/18 22:31 37.7 06/12/18 21:46 113 06/12/18 21:44 113 37 97 06/12/18 21:32 120/64 06/12/18 21:14 115 34 97 06/12/18 21:05 87 18 98 Trach Collar 15.0 50 06/12/18 21:02 138/62 06/12/18 20:44 116 38 92 06/12/18 20:31 140/64 06/12/18 20:14 115 40 94 06/12/18 20:09 116 39 92 06/12/18 20:01 144/64 06/12/18 19:39 116 46 93 06/12/18 19:32 135/76 06/12/18 19:09 117 38 94 06/12/18 19:02 151/79 06/12/18 18:39 114 28 93 06/12/18 18:31 127/64 06/12/18 18:30 115 40 127/64 93 Room Air 06/12/18 18:09 114 30 92 06/12/18 17:46 115 06/12/18 17:39 113 26 06/12/18 17:25 38.2 122 14 139/80 92 Room Air 06/12/18 17:25 92 Room Air 06/12/18 17:16 139/80 Lab Results: Results Past 24 Hours Test 06/12/18 17:40 06/12/18 17:51 06/12/18 18:49 06/12/18 19:50 Range/Units White Blood Count 17.89 4.8-10.8 K/uL Red Blood Count 4.51 4.2-5.4 M/uL Hemoglobin 12.5 12.0-16.0 g/dL Hematocrit 40.0 37-47 % Mean Corpuscular Volume 88.7 80-100 fL Mean Corpuscular Hemoglobin 27.7 25-34 pg Mean Corpuscular Hemoglobin Concent 31.3 32-36 g/dl Platelet Count 259 130-400 K/uL Mean Platelet Volume 9.9 7.4-10.4 fL Neutrophils (%) (Auto) 92.0 % Lymphocytes (%) (Auto) 3.3 % Monocytes (%) (Auto) 4.0 % Eosinophils (%) (Auto) 0.3 % Basophils (%) (Auto) 0.1 % Neutrophils # (Auto) 16.47 1.4-6.5 K/uL Lymphocytes # (Auto) 0.59 1.2-3.4 K/uL Monocytes # (Auto) 0.72 0.11-0.59 K/uL Eosinophils # (Auto) 0.05 0-0.5 K/uL Basophils # (Auto) 0.01 0-0.2 K/uL RDW Standard Deviation 50.9 36.4-46.3 fL RDW Coefficient of Variation 15.7 11.5-14.5 % Immature Granulocyte % (Auto) 0.3 % Immature Granulocyte # (Auto) 0.05 0.00-0.02 K/uL Red Blood Cell Morphology Unremarkable Erythrocyte Sedimentation Rate 83 0-21 mm/hr Prothrombin Time 10.3 9.0-12.0 SECONDS Prothromb Time International Ratio 1.0 0.9-1.1 Activated Partial Thromboplast Time 22.1 21.0-31.0 SECONDS Partial Thromboplastin Ratio 0.9 Sodium Level 137 136-145 mmol/L Potassium Level 4.3 3.5-5.1 mmol/L Chloride Level 103 98-107 mmol/L Carbon Dioxide Level 24 21-32 mmol/L Anion Gap 10.0 3-11 mmol/L Blood Urea Nitrogen 21 7-18 mg/dl Creatinine 1.53 0.60-1.20 mg/dl Est Creatinine Clear Calc Drug Dose 60.6 ml/min Estimated GFR () 42.1 Estimated GFR (Non- 36.3 BUN/Creatinine Ratio 13.5 10-20 Random Glucose 184 70-99 mg/dl Calcium Level 9.3 8.5-10.1 mg/dl Phosphorus Level 2.3 2.5-4.9 mg/dl Magnesium Level 1.8 1.8-2.4 mg/dl Total Bilirubin 0.5 0.2-1 mg/dl Aspartate Amino Transf (AST/SGOT) 49 15-37 U/L Alanine Aminotransferase (ALT/SGPT) 59 12-78 U/L Alkaline Phosphatase 91 45-117 U/L Total Creatine Kinase 274 26-192 U/L Creatine Kinase MB 2.8 0.5-3.6 ng/ml Creatine Kinase MB Ratio 1.0 0-3.0 Troponin I < 0.015 0-0.045 ng/ml C-Reactive Protein 3.48 0-0.29 mg/dl Pro-B-Type Natriuretic Peptide 155 0-900 pg/ml Total Protein 8.1 6.4-8.2 gm/dl Albumin 3.3 3.4-5.0 gm/dl Globulin 4.8 2.5-4.0 gm/dl Albumin/Globulin Ratio 0.7 0.9-2 Lipase 225 73-393 U/L Beta-Hydroxybutyric Acid 0.2-2.81 mg/dL Chemistry Specimen Hemolysis Bedside Lactic Acid Venous 3.16 0.90-1.70 mmol/L Venous Blood pH 7.36 7.36-7.41 Venous Blood Partial Pressure CO2 49 38.0-50.0 mmHg Venous Blood Partial Pressure O2 26 mmHg Venous Blood HCO3 27 mmol/L Venous Blood Oxygen Saturation < 60.0 % Venous Blood Base Excess 1.1 mEq/L Urine Color YELLOW Urine Appearance CLEAR CLEAR Urine pH 5.0 4.5-7.5 Urine Specific [place] 1.013 1.000-1.030 Urine Protein NEG NEG Urine Glucose (UA) NEG NEG Urine Ketones NEG NEG Urine Occult Blood 3+ NEG Urine Nitrite NEG NEG Urine Bilirubin NEG NEG Urine Urobilinogen NEG NEG Urine Leukocyte Esterase NEG NEG Urine WBC (Auto) 0 0-5 /hpf Urine RBC (Auto) 0-4 0-4 /hpf Urine Hyaline Casts (Auto) 1-5 0-5 /lpf Urine Epithelial Cells (Auto) 0-5 0-5 /lpf Urine Bacteria (Auto) NEG NEG Test 06/12/18 20:59 06/12/18 21:11 06/12/18 23:00 06/13/18 03:15 Range/Units Bedside Glucose 196 275 70-90 mg/dl Lactic Acid Level 2.5 0.4-2.0 mmol/L Procalcitonin 0.81 0-0.5 ng/ml Arterial Blood pH 7.41 7.35-7.45 Arterial Blood Partial Pressure CO2 38 35-46 mmHg Arterial Blood Partial Pressure O2 118 80-95 mm/Hg Arterial Blood HCO3 23 19-24 mmol/L Arterial Blood Oxygen Saturation 98.1 90-95 % Arterial Blood Base Excess -1.0 -9-1.8 mEq/L Arterial Blood Gas Delivery 15L Mendoza Test POS POS Test 06/13/18 03:43 06/13/18 07:12 06/13/18 07:37 Range/Units Lactic Acid Level 1.6 0.4-2.0 mmol/L White Blood Count 16.96 4.8-10.8 K/uL Red Blood Count 4.09 4.2-5.4 M/uL Hemoglobin 11.5 12.0-16.0 g/dL Hematocrit 36.5 37-47 % Mean Corpuscular Volume 89.2 80-100 fL Mean Corpuscular Hemoglobin 28.1 25-34 pg Mean Corpuscular Hemoglobin Concent 31.5 32-36 g/dl Platelet Count 214 130-400 K/uL Mean Platelet Volume 9.6 7.4-10.4 fL Neutrophils (%) (Auto) 89.6 % Lymphocytes (%) (Auto) 5.4 % Monocytes (%) (Auto) 4.5 % Eosinophils (%) (Auto) 0.0 % Basophils (%) (Auto) 0.1 % Neutrophils # (Auto) 15.20 1.4-6.5 K/uL Lymphocytes # (Auto) 0.91 1.2-3.4 K/uL Monocytes # (Auto) 0.77 0.11-0.59 K/uL Eosinophils # (Auto) 0.00 0-0.5 K/uL Basophils # (Auto) 0.01 0-0.2 K/uL RDW Standard Deviation 52.1 36.4-46.3 fL RDW Coefficient of Variation 15.9 11.5-14.5 % Immature Granulocyte % (Auto) 0.4 % Immature Granulocyte # (Auto) 0.07 0.00-0.02 K/uL Red Blood Cell Morphology Unremarkable Sodium Level 137 136-145 mmol/L Potassium Level 3.8 3.5-5.1 mmol/L Chloride Level 104 98-107 mmol/L Carbon Dioxide Level 26 21-32 mmol/L Anion Gap 7.0 3-11 mmol/L Blood Urea Nitrogen 23 7-18 mg/dl Creatinine 1.60 0.60-1.20 mg/dl Est Creatinine Clear Calc Drug Dose 55.1 ml/min Estimated GFR () 39.9 Estimated GFR (Non- 34.4 BUN/Creatinine Ratio 14.6 10-20 Random Glucose 165 70-99 mg/dl Calcium Level 8.5 8.5-10.1 mg/dl Bedside Glucose 180 70-90 mg/dl Microbiology Results 06/12/18 Blood Culture, Received Pending 06/12/18 Blood Culture, Received Pending 06/12/18 Gram Stain - Final, Resulted 06/12/18 Sputum Culture, Resulted Pending
--- NOTE | 2018-06-13 13:14 | PULMONARY CONSULTATION ---
DATE OF CONSULTATION: 06/13/2018 TIME: 12:00 noon. REPORT OF CONSULTATION: The patient was seen in room 217. She is a 62-year-old female who yesterday had a sudden onset of a fever. Her temperature at home was recorded at 103.1. She had shaking chills. She had some increasing cough, although it was mild. Her mucus was slightly yellow. Typically, it is clear. She had a headache. She was a little more short of breath than normal. She has had similar episodes in the past and has gotten significantly ill. She feels some better today. She has not had any fever or today thus far. She states her chills have been minimal. She denies having any urinary symptoms such as frequency, urgency or dysuria. The patient has a history of obesity hypoventilation syndrome and chronic respiratory failure. She had been suspected of having sleep apnea. In 2007, she had a cardiopulmonary arrest. She had tracheostomy done at that time apparently because of her severe obesity and large neck. She has had a chronic trach since then. She has had numerous hospital stays. She was admitted from 02/27/2018 until 03/10/2018 with right heart failure. She was admitted from 01/14/2018 until 01/23/2018 with influenza and respiratory failure. In 2017, she was hospitalized for 3 days in December with COPD exacerbation. More recently, she has been doing much better with some weight loss and fluid restrictions. Her peripheral edema has improved dramatically. She states she has lost 52 pounds, although she could not tell me over how long a period of time. PAST SURGICAL HISTORY: 1. Tracheostomy. 2. Appendectomy. 3. Cholecystectomy. 4. Hysterectomy. 5. IVC filter insertion. 6. Tonsillectomy. PAST MEDICAL HISTORY: 1. Diastolic CHF. 2. Cor pulmonale. 3. Anxiety. 4. Depression. 5. Coronary artery disease. 6. MRSA infections. 7. Diabetes. SOCIAL HISTORY: Tobacco never. ETOH - none. ALLERGIES: 1. PENICILLIN. 2. DOXYCYCLINE. 3. GLUCOPHAGE. 4. NEURONTIN. 5. PSEUDOEPHEDRINE. 6. EFFEXOR. 7. ELAVIL. FAMILY HISTORY: Mother , CHF and diabetes. Brother , lung CA. Father , suicide. REVIEW OF SYSTEMS: Negative except for the above-mentioned complaints. MEDICATIONS AT HOME: 1. Acetaminophen p.r.n. 2. ProAir inhaler p.r.n. 3. Aspirin 81 mg daily. 4. Atorvastatin 20 mg daily. 5. Tessalon Perles 100 mg t.i.d. 6. Wellbutrin 300 mg daily, including 100 mg in the morning and 200 mg in the evening. 7. Clarinex 5 mg daily. 8. Docusate b.i.d. 9. Vitamin D3 times per week. 10. Folic acid daily. 11. Guaifenesin p.r.n. 12. O2 5 liters by trach collar at bedtime. 13. Lantus insulin. 14. Humalog pump. 15. DuoNebs q.i.d. 16. Combivent Respimat 1 puff q.i.d. 17. Imdur 60 mg daily. 18. Levothyroxine 300 mcg Mondays and and 200 mcg other days. 19. Lorazepam 1 mg q. 8 hours p.r.n. 20. Metoprolol 12.5 mg b.i.d. 21. Montelukast 10 mg daily. 22. Pantoprazole 40 mg daily. 23. Potassium 20 mEq daily. 24. Spironolactone 25 mg daily. 25. Topiramate 100 mg daily in the morning and 200 mg at bedtime. 26. Torsemide 20 mg b.i.d. 27. Tramadol 50 mg b.i.d. PHYSICAL EXAMINATION: GENERAL: The patient is a 62-year-old female who was cooperative, alert and oriented. She was in no distress at rest. She was sitting up. VITAL SIGNS: Weight is listed as 161 kilograms with BMI of 64.9. HEENT: Pupils were reactive to light. Nares were clear. Mouth exam showed a Mallampati grade 3. The patient has tracheostomy in place. It is a metal trach. NECK: There were no issues noted with the trach. CHEST: Shows a kyphosis. Heart rate is 72 per minute. Rhythm regular. Blood pressure 118/77. The patient's respiratory rate was 28 breaths per minute even though she looked comfortable. There was good aeration bilaterally. Mild rhonchi were heard. Saturation was 94% on a 28% trach collar. ABDOMEN: Obese. Good bowel sounds were heard. There was no tenderness to palpation. EXTREMITIES: Reveals no significant edema. This is much better than when I had seen her previously on a prior hospital stay. The skin is dry. IMAGING DATA: Chest x-ray shows cardiomegaly. Tracheostomy is in place. LABORATORY DATA: White count is 16.96. Hemoglobin 11.5. Platelets 214,000. White count yesterday was 17.89. Sed rate is elevated at 83. Coags are normal. Urinalysis showed 3+ blood, but no evidence of infection. Arterial blood gas showed a pH of 7.41 with a pCO2 of 38 and a pO2 of 118 done on 15 liters of oxygen. Electrolytes show sodium 137, potassium 3.8, chloride 104, bicarb 26. BUN is 23 with a creatinine of 1.6. Procalcitonin is elevated at 0.81. IMPRESSION: 1. Fevers and chills - rule out early sepsis. 2. Rule out pneumonia as a cause of the fevers. 3. Chronic respiratory failure. 4. Obesity. 5. Chronic obstructive pulmonary disease by history. COMMENTS AND RECOMMENDATIONS: The patient appears to have an infection. She may have sepsis. It is not exactly clear the origin. Pulmonary would be most likely in light of the totally negative urinary symptoms. Her initial chest x-ray was clear. A tracheal aspirate Gram stain showed many gram-positive cocci and gram-positive bacilli. Final culture is pending. She seems to be clinically stable, although I am slightly bothered by her increased respiratory rate, even though she appears in no distress. She is currently on levofloxacin and vancomycin. I agree with those. She otherwise appears to be on her usual medicines. She is getting low-dose prednisone at 20 mg. She is getting levalbuterol and ipratropium q. 6. Blood cultures of course are still pending. Thank you for asking me to assist in her care.
[2018-06-13] MEDS: LEVOFLOXACIN 750 MG TAB PO SCH (14:29)
[2018-06-13] MEDS: VANCOMYCIN IV 1,750 MG in SODIUM CHLORIDE 0.9% 500ML 500 ML IV SCH (14:38)
[2018-06-13] MEDS ORDERED: PHARMACY GLYCEMIC MGMT CONSULT PRN (17:04)
[2018-06-13] MEDS ORDERED: INSULIN HUMAN LISPRO (humaLOG) 100 UNITS/ML VIAL SC PRN (18:00)
[2018-06-13] MEDS: MONTELUKAST SOD 10 MG TAB PO SCH (20:51)
--- NOTE | 2018-06-13 21:53 | Pharmacy Progress Note ---
Glycemic Control Intl Consult Date of Service Jun 13, 2018. Scope Glycemic Pharmacist consulted by Dr Pat on 06/13/18 for glycemic control and to write orders per [facility] inpatient glycemic control protocol Objective Weight (Kilograms): 161.000 Accuchecks BSG (last 24hrs): Test 06/13/18 03:15 06/13/18 07:12 06/13/18 07:37 06/13/18 11:22 Bedside Glucose 275 mg/dl (70-90) 180 mg/dl (70-90) 209 mg/dl (70-90) Random Glucose 165 mg/dl (70-99) Test 06/13/18 16:01 06/13/18 20:14 Bedside Glucose 212 mg/dl (70-90) 130 mg/dl (70-90) Laboratory Data (last 24hrs) Test 06/13/18 07:12 Anion Gap 7.0 mmol/L BUN/Creatinine Ratio 14.6 Blood Urea Nitrogen 23 mg/dl Creatinine 1.60 mg/dl Potassium Level 3.8 mmol/L Sodium Level 137 mmol/L White Blood Count 16.96 K/uL Red Blood Count 4.09 M/uL Hemoglobin 11.5 g/dL Hematocrit 36.5 % Mean Corpuscular Volume 89.2 fL Mean Corpuscular Hemoglobin 28.1 pg Mean Corpuscular Hemoglobin Concent 31.5 g/dl Platelet Count 214 K/uL Mean Platelet Volume 9.6 fL Neutrophils (%) (Auto) 89.6 % Lymphocytes (%) (Auto) 5.4 % Monocytes (%) (Auto) 4.5 % Eosinophils (%) (Auto) 0.0 % Basophils (%) (Auto) 0.1 % Neutrophils # (Auto) 15.20 K/uL Lymphocytes # (Auto) 0.91 K/uL Monocytes # (Auto) 0.77 K/uL Eosinophils # (Auto) 0.00 K/uL Basophils # (Auto) 0.01 K/uL Recent Pertinent Medications Outpatient Anti-diabetic Regimen: * Humalog insulin via Medtronic insulin pump *Patient is uncertain of her current pump settings. She reported to nursing staff that her PCP office adjusts the parameters. Most recent pump settings based on [facility] records (February 2018): * Basal rate: 0:00: 5.00 u/hr, 7:00: 5.50 u/hr * CR 1:2 * SF: 1:15 * A1c = 7.5 % 03/01/18 Assessment & Plan ASSESSMENT: * 62 yr old T2DM female with good outpatient control admitted for possible sepsis (lung source). * Patient was given a one time of solu-medrol 20 mg IV in the ED and then started on prednisone 20 mg po daily. * Patient is maintained on humalog insulin pump as an outpatient. She uses Lantus 75 units SQ BID when she is off of her pump. At the time of admission, she did not have her pump supplies on hand, therefore she was ordered Lantus + Novolog ACHS. I received a call from nursing prior to dinner stating that the patient re-connected her pump and bolused herself shortly after she was administered lunch coverage (patient did this at her own discretion). Patient is confident with manipulating her pump however, she does not know her pump settings. She stated that her PCP manages the settings. I attempted to call Dr. Rowan Leos's office ([phone]) to obtain most current settings but the office was closed, therefore, her settings from recent admission in February (see above) will be utilized until MD office can be contacted in the morning. * I will add overnight checks at 00 and 04 for tonight since insulin needs are uncertain at this time. * Weight based once daily NPH will be utilized to cover steroid induced hyperglycemia from prednisone. * Pt is to manage BSGs with insulin pump per outpatient settings. * RN will have patient read and sign agreement [id number] Insulin Pump Therapy Patient Agreement. * RN will provide and explain form [id number] Flowsheet for Patient * Patient will document their insulin dose given on NS-824 which is kept at the bedside, available to caregivers upon request, and which becomes part of the permanent medical record. If at any time the patients condition evidences that he/she is not able to manage the insulin pump (i.e. frequent hypo/hyperglycemia) Pharmacy will assume glycemic control by discontinuing the pump & managing with SQ basal bolus insulin regimen for the interim. PLAN FOR INPATIENT GLYCEMIC CONTROL: * Continue home humalog insulin pump * NPH 30 units SQ qAM - while on prednisone 20 mg Thank you.
[2018-06-14] VITALS (10 sets, daily range): BP systolic 110–138; BP diastolic 64–86; PULSE 76–80; TEMP 36.7–37.1; O2SAT 95–99; Ht 157.5 cm; Wt 162.3 kg
[2018-06-14] MEDS: IPRATROPIUM BROMIDE NEB SOLN 0.02% 2.5 ML VIAL INH SCH ×4 (02:03→19:43)
[2018-06-14] MEDS: LEVALBUTEROL 1.25MG/0.5ML NEB INH SCH ×4 (02:04→19:43)
[2018-06-14] MEDS: LEVOTHYROXINE 200 MCG TAB PO SCH (05:36)
[2018-06-14] MEDS: HEPARIN SOD 5000 UNIT/0.5 ML CARP SQ SCH ×3 (05:36→21:36)
[2018-06-14] MEDS ORDERED: VANCOMYCIN TROUGH ONE (07:30)
[2018-06-14 08:31] LABS: BASO % 0.1 %; BASO ABS # 0.01 K/uL (0-0.2); EOS % 1.5 %; EOS ABS # 0.13 K/uL (0-0.5); HEMOGLOBIN 10.9 g/dL (12.0-16.0); IG# 0.05 K/uL (0.00-0.02); LYMPH % 16.6 %; LYMPH ABS # 1.42 K/uL (1.2-3.4); MEAN CELL VOLUME 88.4 fL (80-100); MEAN CORPUSCULAR HEMOGLOBIN 27.5 pg (25-34); MEAN CORPUSCULAR HGB CONC 31.1 g/dl (32-36); MEAN PLATELET VOLUME 9.7 fL (7.4-10.4); MONO ABS # 0.85 K/uL (0.11-0.59); NEUT % 71.2 %; NEUT ABS # 6.08 K/uL (1.4-6.5); PLATELET COUNT 200 K/uL (130-400); RED CELL DISTRIBUTION WIDTH SD 52.1 fL (36.4-46.3); WHITE BLOOD COUNT 8.54 K/uL (4.8-10.8)
[2018-06-14] MEDS: DOCUSATE SODIUM 100 MG CAP PO SCH ×2 (08:31→21:31)
[2018-06-14] MEDS: LACTOBACILLUS ACIDOPHILUS (FLORANEX) TAB PO SCH ×3 (08:31→16:48)
[2018-06-14] MEDS: ATORVASTATIN 20 MG TAB PO SCH (08:31)
[2018-06-14] MEDS: MULTIVITAMIN TAB PO SCH (08:32)
[2018-06-14] MEDS: ASPIRIN 81 MG ECTAB PO SCH (08:32)
[2018-06-14] MEDS: METOPROLOL TARTRATE 25 MG TAB PO SCH ×2 (08:32→21:32)
[2018-06-14] MEDS: BuPROPion SR 100 MG TABCR PO SCH ×2 (08:32→21:31)
[2018-06-14] MEDS: PANTOprazole SOD 40 MG TAB PO SCH (08:32)
[2018-06-14] MEDS: ISOSORBIDE MONONITRATE 60 MG TABCR PO SCH (08:32)
[2018-06-14] MEDS: TOPIRAMATE 100 MG TAB PO SCH ×2 (08:33→21:30)
[2018-06-14 09:00] LABS: CALCIUM 8.7 mg/dl (8.5-10.1); CREATININE 1.48 mg/dl (0.60-1.20); POTASSIUM 3.6 mmol/L (3.5-5.1)
[2018-06-14] MEDS ORDERED: NovoLIN-N (NPH) PER UNIT CHARGE SQ SCH (09:00)
[2018-06-14] MEDS ORDERED: AZITHROMYCIN 250 MG TAB PO SCH (09:00)
--- NOTE | 2018-06-14 09:12 | Pharmacy Progress Note ---
Pharmacy Glycemic Short Note 2 Date of Service Jun 14, 2018. OUTPATIENT ANTIDIABETIC REGIMEN: * Humalog insulin via Medtronic insulin pump * Basal rate: 0:00: 5.00 u/hr, 7:00: 5.50 u/hr * CR 1:2 * SF: 1:15 * A1c = 7.5 % 03/01/18 ASSESSMENT: * 62 yr old T2DM female with good outpatient control admitted for possible sepsis (lung source). * Patient was given a one time of solu-medrol 20 mg IV in the ED and then started on prednisone 20 mg po daily. * Patient is maintained on humalog insulin pump as an outpatient. She uses Lantus 75 units SQ BID when she is off of her pump. At the time of admission, she did not have her pump supplies on hand, therefore she was ordered Lantus + Novolog ACHS. I received a call from nursing prior to dinner stating that the patient re-connected her pump and bolused herself shortly after she was administered lunch coverage (patient did this at her own discretion). Patient is confident with manipulating her pump however, she does not know her pump settings. She stated that her PCP manages the settings. * Pt wishes to manage her own insulin pump and will bolus accordingly for steroid induced hyperglycemia. Pt does not want extra NPH for steroid/ prednisone hyperglycemia. * Pt is to manage BSGs with insulin pump per outpatient settings. * RN will have patient read and sign agreement [id number] Insulin Pump Therapy Patient Agreement. * RN will provide and explain form [id number] Flowsheet for Patient * Patient will document their insulin dose given on NS-824 which is kept at the bedside, available to caregivers upon request, and which becomes part of the permanent medical record. If at any time the patients condition evidences that he/she is not able to manage the insulin pump (i.e. frequent hypo/hyperglycemia) Pharmacy will assume glycemic control by discontinuing the pump & managing with SQ basal bolus insulin regimen for the interim. PLAN FOR INPATIENT GLYCEMIC CONTROL: * Pt to manage BSGs/hyperglycemia with insulin pump per outpatient settings * Will continue Q4hrs BSG checks/coverage for steroid induced hyperglycemia. PLAN FOR DISCHARGE: * Pt well controlled with current outpatient regimen. No changes needed at d.c.
[2018-06-14] MEDS: VANCOMYCIN IV 1,750 MG in SODIUM CHLORIDE 0.9% 500ML 500 ML IV SCH (09:38)
[2018-06-14] MEDS: LEVOFLOXACIN 750 MG TAB PO SCH (09:39)
--- NOTE | 2018-06-14 14:04 | Progress Note ---
Internal Med Progress Note Date of Service: Jun 14, 2018. Provider Documentation: SUBJECTIVE: The patient was seen and examined in telemetry unit She is obese with multiple comorbid conditions including RASHAAD, chronic right- sided heart failure, diabetes and COPD She was admitted yesterday with sepsis and acute on chronic respiratory failure She has been feeling a little better since admission No acute symptoms 06/14; feels a lot, no shortness of breath, cough or chest pain Denies any complaints But she is not yet ready to be discharged OBJECTIVE: Vital Signs-as noted below Exam: General-no apparent distress at rest Eyes-normal ENT-normal Neck-supple Lungs-decreased breath sounds otherwise clear Heart-regular no murmur appreciated Abdomen-soft distended,, difficult to feel for any organs, bowel sounds present Extremities-chronic edema bilaterally, 1+ now Neuro-alert, awake and oriented 3 Lab data as noted below. ASSESSMENT & PLAN: This is a 62-year-old female with a PMH of chronic right-sided heart failure, obesity hypoventilation syndrome, COPD, bronchiectasis, s/p tracheostomy in 2007 and other problems listed below who presents with fever and generalized weakness starting this afternoon. Complicated bronchitis -In setting of COPD, bronchiectasis, obesity hypoventilation syndrome -Meets SIRS criteria with fever of 38.2, tachycardia of 122 -Leukocytosis of 17.8, no clear source of infection on CXR, urine -Lactic acid elevated to 2.5. Procalcitonin minimally high at 0.81 -Given Levaquin, Xopenex, IV solu-medrol in ED -Blood and sputum cultures pending -Continue neb treatments, steroids, empiric abx with Levaquin and Vancomycin -Continue home anika Rutherford -Pulm consulted , appreciate input and recommendation -Feels a lot better today -Sputum culture unremarkable -Discussed with pulmonary, will discontinue IV vancomycin and continue with oral Levaquin to finish the course Chronic right-sided heart failure:Compensated now -Was admitted for exacerbation in February 2018, diuresed 50 lbs -Echo from Dec 2017 with normal LV function, EF : 55-60%, grade 1 diastolic dysfunction -Has kept weight stable with fluid restriction, low Na diet, aggressive PO diuresis -Continue torsemide 20mg BID, spirolactone 25mg daily -Strict I&Os, daily weights -will keep her on dry side -Has been started on her home medications CKD III -Cr 1.53, GFR 36 -At baseline -Creatinine 1.6 today -Creatinine remains the DM II -Uses an insulin pump but did not bring supplies -Recent a1c in March 2018 of 6.4 -Basal/bolus insulin per protocol -BSG AC HS -diabetic teaching -appreciated pharmacy input and recommendation CAD -Stable, no chest pain -Continue aspirin, metoprolol, nitrates, statin HTN -Currently normotensive -Continue metoprolol, Imdur Mood disorder -Cont bupropion, Ativan PRN S/p tracheostomy -Trach care, per nursing -Cont home O2 HS -no acute issue DVT Ppx: SQ heparin Code status: FULL per discussion with patient, daughter PCP: [facility] Dispo: Admit to med/surg. Likely to be discharged in a day or 2 Vital Signs: Date Time Temp Pulse Resp B/P (MAP) Pulse Ox O2 Delivery O2 Flow Rate FiO2 06/14/18 11:00 36.7 76 18 118/86 (97) 95 06/14/18 07:20 78 22 97 Trach Collar 28 06/14/18 07:07 37.1 77 21 122/80 (94) 98 Trach Collar 06/14/18 03:38 37.0 77 20 114/64 (81) 97 Trach Collar 06/14/18 02:04 78 22 95 Trach Collar 28 06/13/18 23:23 36.7 75 20 126/79 (95) 99 Trach Collar 06/13/18 20:00 Trach Collar 28 06/13/18 19:00 73 18 95 Trach Collar 28 06/13/18 18:53 36.7 73 18 127/77 (94) 97 06/13/18 15:23 36.6 73 18 133/78 (96) 97 06/13/18 14:37 78 16 95 Trach Collar 6.0 28 Lab Results: Results Past 24 Hours Test 06/13/18 16:01 06/13/18 20:14 06/14/18 00:00 06/14/18 03:46 Range/Units Bedside Glucose 212 130 93 86 70-90 mg/dl Test 06/14/18 08:08 06/14/18 08:47 06/14/18 11:26 Range/Units White Blood Count 8.54 4.8-10.8 K/uL Red Blood Count 3.96 4.2-5.4 M/uL Hemoglobin 10.9 12.0-16.0 g/dL Hematocrit 35.0 37-47 % Mean Corpuscular Volume 88.4 80-100 fL Mean Corpuscular Hemoglobin 27.5 25-34 pg Mean Corpuscular Hemoglobin Concent 31.1 32-36 g/dl Platelet Count 200 130-400 K/uL Mean Platelet Volume 9.7 7.4-10.4 fL Neutrophils (%) (Auto) 71.2 % Lymphocytes (%) (Auto) 16.6 % Monocytes (%) (Auto) 10.0 % Eosinophils (%) (Auto) 1.5 % Basophils (%) (Auto) 0.1 % Neutrophils # (Auto) 6.08 1.4-6.5 K/uL Lymphocytes # (Auto) 1.42 1.2-3.4 K/uL Monocytes # (Auto) 0.85 0.11-0.59 K/uL Eosinophils # (Auto) 0.13 0-0.5 K/uL Basophils # (Auto) 0.01 0-0.2 K/uL RDW Standard Deviation 52.1 36.4-46.3 fL RDW Coefficient of Variation 16.0 11.5-14.5 % Immature Granulocyte % (Auto) 0.6 % Immature Granulocyte # (Auto) 0.05 0.00-0.02 K/uL Sodium Level 139 136-145 mmol/L Potassium Level 3.6 3.5-5.1 mmol/L Chloride Level 107 98-107 mmol/L Carbon Dioxide Level 23 21-32 mmol/L Anion Gap 9.0 3-11 mmol/L Blood Urea Nitrogen 25 7-18 mg/dl Creatinine 1.48 0.60-1.20 mg/dl Est Creatinine Clear Calc Drug Dose 60.2 ml/min Estimated GFR () 43.8 Estimated GFR (Non- 37.8 BUN/Creatinine Ratio 16.6 10-20 Random Glucose 115 70-99 mg/dl Calcium Level 8.7 8.5-10.1 mg/dl Vancomycin Level Trough 15.4 SEE COMMENT mcg/ml Bedside Glucose 129 120 70-90 mg/dl
--- NOTE | 2018-06-14 17:10 | PULMONARY PROGRESS NOTE ---
DATE: 06/14/2018 TIME: 4:45 p.m. SUBJECTIVE: The patient feels like she has mucus that she is having difficulty expectorating. Her daughter was with her during this evaluation. Her daughter states that she cleaned her inner cannula this afternoon. It had a lot more phlegm on than normal. The patient states usually she is able to expectorate through her trach, but she has not been able to. She has not had any rigors. She has had mild chills. There had been no fevers. OBJECTIVE: GENERAL: The patient appears comfortable at rest. Trach collar is in place. VITAL SIGNS: Temperature is 36.7, heart rate is 76 per minute. CARDIOVASCULAR: Rhythm is regular. Blood pressure 138/70. CHEST: Auscultation revealed scattered rhonchi. These are increased from yesterday. Saturation is 97% on 28% trach collar. LABORATORY DATA: White count today was down to 8.54. Yesterday, it had been 16.96. Hemoglobin is 10.9, platelets 200,000. Electrolytes show sodium 139, potassium 3.6, chloride 107, bicarbonate 23, BUN is 25, with a creatinine of 1.48, blood sugar today was ranging from 115 to 129. IMPRESSIONS: 1. Chronic obstructive pulmonary disease with exacerbation. 2. Rule out sepsis. 3. Chronic respiratory failure. 4. Obesity. 5. Elevated sedimentation rate. COMMENTS AND RECOMMENDATIONS: The patient requested a vibration vest. She states she has used it before with benefit. She states she has had Mucinex in the past with benefit. We will order that as well. Hopefully, these modalities will help her clear the secretions. She has 1 blood culture out of 2 positive for coagulase negative staph. This likely is a contaminant.
[2018-06-14] MEDS ORDERED: KETOCONAZOLE 2% CR 15 GM TUBE EXT SCH (21:00)
[2018-06-14] MEDS ORDERED: TRIAMCINOLONE ACET 0.5% CR 15 GM TUBE EXT SCH (21:00)
[2018-06-14] MEDS: CLOTRIMAZOLE/BETAMETHASONE CR 15 GM TUBE EXT SCH (21:16)
[2018-06-14] MEDS: GUAIFENESIN 600 MG TABCR PO SCH (21:30)
[2018-06-14] MEDS: TRAMADOL HCL 50 MG TAB PO SCH (21:30)
[2018-06-14] MEDS: MONTELUKAST SOD 10 MG TAB PO SCH (21:31)
[2018-06-14] MEDS: TORSEMIDE 20 MG TAB PO SCH (21:34)
[2018-06-15] VITALS (11 sets, daily range): BP systolic 100–127; BP diastolic 63–70; PULSE 62–88; TEMP 36.6–36.7; O2SAT 95–99
[2018-06-15] MEDS: LEVALBUTEROL 1.25MG/0.5ML NEB INH SCH ×4 (02:00→19:09)
[2018-06-15] MEDS: IPRATROPIUM BROMIDE NEB SOLN 0.02% 2.5 ML VIAL INH SCH ×4 (02:00→19:09)
[2018-06-15] MEDS ORDERED: LEVOTHYROXINE 100 MCG TAB PO SCH (06:00)
[2018-06-15] MEDS: HEPARIN SOD 5000 UNIT/0.5 ML CARP SQ SCH ×3 (06:04→21:13)
[2018-06-15] MEDS: LACTOBACILLUS ACIDOPHILUS (FLORANEX) TAB PO SCH ×3 (07:59→16:39)
[2018-06-15] MEDS: DOCUSATE SODIUM 100 MG CAP PO SCH ×2 (07:59→21:05)
[2018-06-15] MEDS: ISOSORBIDE MONONITRATE 60 MG TABCR PO SCH (08:00)
[2018-06-15] MEDS: METOPROLOL TARTRATE 25 MG TAB PO SCH ×2 (08:01→21:05)
[2018-06-15] MEDS: POTASSIUM CHLORIDE 20 MEQ TABCR PO SCH (08:01)
[2018-06-15] MEDS: TORSEMIDE 20 MG TAB PO SCH ×2 (08:01→21:14)
[2018-06-15] MEDS: GUAIFENESIN 600 MG TABCR PO SCH ×2 (08:02→21:06)
[2018-06-15] MEDS: SPIRONOLACTONE 25 MG TAB PO SCH (08:02)
[2018-06-15] MEDS: ASPIRIN 81 MG ECTAB PO SCH (08:02)
[2018-06-15] MEDS: MULTIVITAMIN TAB PO SCH (08:03)
[2018-06-15] MEDS: TOPIRAMATE 100 MG TAB PO SCH ×2 (08:03→21:07)
[2018-06-15] MEDS: PANTOprazole SOD 40 MG TAB PO SCH (08:03)
[2018-06-15] MEDS: CLOTRIMAZOLE/BETAMETHASONE CR 15 GM TUBE EXT SCH ×2 (08:04→21:04)
[2018-06-15] MEDS: BuPROPion SR 100 MG TABCR PO SCH ×2 (08:05→21:08)
[2018-06-15] MEDS: ATORVASTATIN 20 MG TAB PO SCH (08:05)
[2018-06-15] MEDS: TRAMADOL HCL 50 MG TAB PO SCH ×2 (08:10→21:09)
[2018-06-15 08:20] LABS: CALCIUM 8.9 mg/dl (8.5-10.1); CREATININE 1.54 mg/dl (0.60-1.20); POTASSIUM 3.6 mmol/L (3.5-5.1)
[2018-06-15] MEDS ORDERED: FLUCONAZOLE 50 MG TAB PO ONE (11:15)
[2018-06-15] MEDS: LEVOFLOXACIN 750 MG TAB PO SCH (11:36)
--- NOTE | 2018-06-15 12:06 | PULMONARY PROGRESS NOTE ---
DATE: 06/15/2018 PULMONARY PROGRESS NOTE TIME: 11:15 a.m. SUBJECTIVE: The patient feels that her cough and chest congestion are improved. She believes the Mucinex and the Vest have helped this problem. Her mucus is coming out easier. She is less short of breath. She is complaining of some pain in the right thigh. It is painful to touch. She just noticed this late yesterday. OBJECTIVE: GENERAL: The patient appears comfortable. She was in no distress. VITAL SIGNS: Temperature is 36.6. She has not had any fevers for 3 days. CARDIAC: Heart rate was 86 per minute. Rhythm is regular. Blood pressure 108/69. LUNGS: Lung hale revealed very few rhonchi today. She sounds much better than when she was examined yesterday. Saturation is 99% on 28% trach collar. EXTREMITIES: Show mild edema. She is sitting in a chair. I could not adequately evaluate the area of her leg where she is complaining of. LABORATORY DATA: Electrolytes today were normal. BUN was 26 with a creatinine of 1.54. Yesterday's creatinine was 1.48. IMPRESSIONS: 1. Chronic obstructive pulmonary disease exacerbation. 2. Chronic respiratory failure. 3. Obesity. 4. Elevated sedimentation rate. COMMENTS AND RECOMMENDATIONS: The patient's respiratory status seems much better today. She is much clearer than yesterday. I agree she may be ready for discharge tomorrow. I did ask nursing staff to evaluate the patient's leg when they get her back in bed and she can be examined more readily. ALMZA
--- NOTE | 2018-06-15 13:52 | Progress Note ---
Internal Med Progress Note Date of Service: Jun 15, 2018. Provider Documentation: SUBJECTIVE: The patient was seen and examined in telemetry unit She is obese with multiple comorbid conditions including RASHAAD, chronic right- sided heart failure, diabetes and COPD She was admitted yesterday with sepsis and acute on chronic respiratory failure She has been feeling a little better since admission No acute symptoms 06/14; feels a lot, no shortness of breath, cough or chest pain Denies any complaints But she is not yet ready to be discharged 06/15: Feeling much better than yesterday, breathing is better and denies any shortness of breath at rest Complains of some pain right inner thigh area Has not had any physical therapy at OBJECTIVE: Vital Signs-as noted below Exam: General-no apparent distress at rest Eyes-normal ENT-normal Neck-supple Lungs-decreased breath sounds otherwise clear Heart-regular no murmur appreciated Abdomen-soft distended,, difficult to feel for any organs, bowel sounds present Extremities-chronic edema bilaterally, 1+ now Nothing significant noted on examination of the right inner thigh area But the patient complains to have pain on palpation around that area Neuro-alert, awake and oriented 3 Lab data as noted below. ASSESSMENT & PLAN: This is a 62-year-old female with a PMH of chronic right-sided heart failure, obesity hypoventilation syndrome, COPD, bronchiectasis, s/p tracheostomy in 2007 and other problems listed below who presents with fever and generalized weakness starting this afternoon. Left inner thigh pain Associated with the lump We will get ultrasound to evaluate and rule out any abscess formation Complicated bronchitis -In setting of COPD, bronchiectasis, obesity hypoventilation syndrome -Meets SIRS criteria with fever of 38.2, tachycardia of 122 -Leukocytosis of 17.8, no clear source of infection on CXR, urine -Lactic acid elevated to 2.5. Procalcitonin minimally high at 0.81 -Given Levaquin, Xopenex, IV solu-medrol in ED -Blood and sputum cultures pending -Continue neb treatments, steroids, empiric abx with Levaquin and Vancomycin -Continue home Tessalon Perles, guaifenesin -Pulm consulted , appreciate input and recommendation -Feels a lot better today -Sputum culture unremarkable -Discussed with pulmonary, will discontinue IV vancomycin and continue with oral Levaquin to finish the course -Clinically a lot better and likely to be discharged on oral antibiotic tomorrow Chronic right-sided heart failure:Compensated now -Was admitted for exacerbation in February 2018, diuresed 50 lbs -Echo from Dec 2017 with normal LV function, EF : 55-60%, grade 1 diastolic dysfunction -Has kept weight stable with fluid restriction, low Na diet, aggressive PO diuresis -Continue torsemide 20mg BID, spirolactone 25mg daily -Strict I&Os, daily weights -will keep her on dry side -Has been started on her home medications -Renal function is slightly worse but creatinine less than 2 -We will make an outpatient appointment with drilling fluids specialist on discharge CKD III -Cr 1.53, GFR 36 -At baseline -Creatinine slightly worse today at 1.58 DM II -Uses an insulin pump but did not bring supplies -Recent a1c in March 2018 of 6.4 -Basal/bolus insulin per protocol -BSG AC HS -diabetic teaching -appreciated pharmacy input and recommendation CAD -Stable, no chest pain -Continue aspirin, metoprolol, nitrates, statin HTN -Currently normotensive -Continue metoprolol, Imdur Mood disorder -Cont bupropion, Ativan PRN S/p tracheostomy -Trach care, per nursing -Cont home O2 HS -no acute issue DVT Ppx: SQ heparin Code status: FULL per discussion with patient, daughter PCP: [facility] Dispo: Admit to med/surg. Likely to be discharged in a day or 2 Vital Signs: Date Time Temp Pulse Resp B/P (MAP) Pulse Ox O2 Delivery O2 Flow Rate FiO2 06/15/18 12:13 36.7 88 16 115/63 (80) 95 06/15/18 08:00 Trach Collar 28 06/15/18 07:57 36.6 86 18 108/69 (82) 99 06/15/18 07:23 84 20 97 Trach Collar 6.0 28 06/15/18 06:49 75 20 98 Trach Collar 6.0 28 06/15/18 03:29 36.6 75 22 111/70 (84) 99 Humidified Oxygen 6.0 28 Trach Collar 06/15/18 02:01 71 20 97 Trach Collar 6.0 28 06/14/18 21:29 77 110/73 (85) 98 Humidified Oxygen 28 Trach Collar 06/14/18 20:00 98 Humidified Oxygen 28 Trach Collar 06/14/18 19:44 80 20 99 Trach Collar 28 06/14/18 15:24 36.7 76 20 138/70 (92) 97 Nasal Cannula 8.0 06/14/18 14:40 76 20 99 Trach Collar 28 Lab Results: Results Past 24 Hours Test 06/14/18 16:31 06/14/18 20:40 06/15/18 06:41 06/15/18 07:35 Range/Units Bedside Glucose 130 164 79 70-90 mg/dl Sodium Level 141 136-145 mmol/L Potassium Level 3.6 3.5-5.1 mmol/L Chloride Level 107 98-107 mmol/L Carbon Dioxide Level 26 21-32 mmol/L Anion Gap 8.0 3-11 mmol/L Blood Urea Nitrogen 26 7-18 mg/dl Creatinine 1.54 0.60-1.20 mg/dl Est Creatinine Clear Calc Drug Dose 57.8 ml/min Estimated GFR () 41.8 Estimated GFR (Non- 36.0 BUN/Creatinine Ratio 16.8 10-20 Random Glucose 70 70-99 mg/dl Calcium Level 8.9 8.5-10.1 mg/dl
--- NOTE | 2018-06-15 15:22 | DIAGNOSTIC IMAGING REPORT ---
EXTREMITY NONVASCULAR LIMITED CLINICAL HISTORY: r/o Fluid collection in right inner thigh pain. Edema. Cellulitis. TECHNIQUE: Ultrasound COMPARISON STUDY: None FINDINGS: Complex collection with surrounding considerable soft tissue edematous change of the medial aspect of the right upper thigh. The fluid pocket is somewhat septated and complex.. Measures approximately 7 x 3 x 4 cm. Generalized regional surrounding edematous soft tissue changes noted. IMPRESSION: 1. Generalized soft tissue edematous change about the medial aspect of the upper right thigh. 2. At the central aspect of this region of edematous change is a complex partially septated 7 x 3 x 4 cm complex fluid collection The above report was generated using voice recognition software. It may contain grammatical, syntax or spelling errors. Electronically signed by: Neftali Trotter M.D. 06/15/2018 3:21 PM Dictated Date/Time: 06/15/2018 3:19 PM
[2018-06-15] MEDS ORDERED: VANCOMYCIN TROUGH ONE (19:30)
[2018-06-15] MEDS: MONTELUKAST SOD 10 MG TAB PO SCH (21:06)
[2018-06-16] VITALS (7 sets, daily range): BP systolic 98–126; BP diastolic 59–78; PULSE 62–76; TEMP 36.5–36.8; O2SAT 97–99
[2018-06-16] MEDS: LEVALBUTEROL 1.25MG/0.5ML NEB INH SCH ×3 (01:54→14:11)
[2018-06-16] MEDS: IPRATROPIUM BROMIDE NEB SOLN 0.02% 2.5 ML VIAL INH SCH ×3 (01:55→14:11)
[2018-06-16] MEDS: HEPARIN SOD 5000 UNIT/0.5 ML CARP SQ SCH ×2 (05:46→14:00)
[2018-06-16] MEDS: LEVOTHYROXINE 200 MCG TAB PO SCH (05:46)
[2018-06-16] MEDS: TORSEMIDE 20 MG TAB PO SCH (08:00)
[2018-06-16] MEDS: CLOTRIMAZOLE/BETAMETHASONE CR 15 GM TUBE EXT SCH (08:00)
[2018-06-16] MEDS: TOPIRAMATE 100 MG TAB PO SCH (08:00)
[2018-06-16 08:01] LABS: CREATININE 1.55 mg/dl (0.60-1.20); POTASSIUM 3.4 mmol/L (3.5-5.1)
[2018-06-16] MEDS: PANTOprazole SOD 40 MG TAB PO SCH (08:01)
[2018-06-16] MEDS: MULTIVITAMIN TAB PO SCH (08:01)
[2018-06-16] MEDS: GUAIFENESIN 600 MG TABCR PO SCH (08:01)
[2018-06-16] MEDS: LACTOBACILLUS ACIDOPHILUS (FLORANEX) TAB PO SCH ×2 (08:01→12:08)
[2018-06-16] MEDS: POTASSIUM CHLORIDE 20 MEQ TABCR PO SCH (08:04)
[2018-06-16] MEDS: BuPROPion SR 100 MG TABCR PO SCH (08:04)
[2018-06-16] MEDS: ASPIRIN 81 MG ECTAB PO SCH (08:04)
[2018-06-16] MEDS: ATORVASTATIN 20 MG TAB PO SCH (08:05)
[2018-06-16] MEDS: DOCUSATE SODIUM 100 MG CAP PO SCH (08:39)
[2018-06-16] MEDS ORDERED: POTASSIUM CHLORIDE 20 MEQ TABCR PO STA (08:47)
[2018-06-16] MEDS: SPIRONOLACTONE 25 MG TAB PO SCH (09:00)
[2018-06-16] MEDS: METOPROLOL TARTRATE 25 MG TAB PO SCH (09:00)
[2018-06-16] MEDS: ISOSORBIDE MONONITRATE 60 MG TABCR PO SCH (09:00)
[2018-06-16] MEDS: TRAMADOL HCL 50 MG TAB PO SCH (09:00)
--- NOTE | 2018-06-16 12:02 | Progress Note ---
Internal Med Progress Note Date of Service: Jun 16, 2018. Provider Documentation: SUBJECTIVE: The patient was seen and examined in telemetry unit She is obese with multiple comorbid conditions including RASHAAD, chronic right- sided heart failure, diabetes and COPD She was admitted yesterday with sepsis and acute on chronic respiratory failure She has been feeling a little better since admission No acute symptoms 06/14; feels a lot, no shortness of breath, cough or chest pain Denies any complaints But she is not yet ready to be discharged 06/15: Feeling much better than yesterday, breathing is better and denies any shortness of breath at rest Complains of some pain right inner thigh area Has not had any physical therapy at 06/16: Does not have any more pain in the right inner thigh area Noted to have fluid collection but no evidence of cellulitis Clinically a lot better today and denies any shortness of breath cough or chest pain We will go home this afternoon OBJECTIVE: Vital Signs-as noted below Exam: General-no apparent distress at rest Denies any chest pain, shortness of breath or palpitation Eyes-normal ENT-normal Neck-supple Lungs-decreased breath sounds otherwise clear Heart-regular no murmur appreciated Abdomen-soft distended,, difficult to feel for any organs, bowel sounds present Extremities-chronic edema bilaterally, 1+ now Nothing significant noted on examination of the right inner thigh area But the patient complains to have pain on palpation around that area Ultrasound did show some fluid collection around right inner thigh but no cellulitis Neuro-alert, awake and oriented 3 Lab data as noted below. ASSESSMENT & PLAN: This is a 62-year-old female with a PMH of chronic right-sided heart failure, obesity hypoventilation syndrome, COPD, bronchiectasis, s/p tracheostomy in 2007 and other problems listed below who presents with fever and generalized weakness starting this afternoon. Left inner thigh pain Associated with the lump We will get ultrasound to evaluate and rule out any abscess formation Fluid collection but no cellulitis Denies any more pain Complicated bronchitis -In setting of COPD, bronchiectasis, obesity hypoventilation syndrome -Meets SIRS criteria with fever of 38.2, tachycardia of 122 -Leukocytosis of 17.8, no clear source of infection on CXR, urine -Lactic acid elevated to 2.5. Procalcitonin minimally high at 0.81 -Given Levaquin, Xopenex, IV solu-medrol in ED -Blood and sputum cultures pending -Continue neb treatments, steroids, empiric abx with Levaquin and Vancomycin -Continue home anika Ruther[place] -Pulm consulted , appreciate input and recommendation -Feels a lot better today -Sputum culture unremarkable -Discussed with pulmonary, will discontinue IV vancomycin and continue with oral Levaquin to finish the course -Clinically a lot better and likely to be discharged on oral antibiotic tomorrow -Discussed with the pulmonary and she will be discharged home today on oral Levaquin We will continue other home-medications for COPD Presented with possible Sepsis Met SIRS criteria on admission Improved with treatment provided Chronic right-sided heart failure:Compensated now -Was admitted for exacerbation in February 2018, diuresed 50 lbs -Echo from Dec 2017 with normal LV function, EF : 55-60%, grade 1 diastolic dysfunction -Has kept weight stable with fluid restriction, low Na diet, aggressive PO diuresis -Continue torsemide 20mg BID, spirolactone 25mg daily -Strict I&Os, daily weights -will keep her on dry side -Has been started on her home medications -Renal function is slightly worse but creatinine less than 2 -We will make an outpatient appointment with child psychology teacher on discharge -Remains dry, will continue diuretics as per child psychology teacher recommendation CKD III -Cr 1.53, GFR 36 -At baseline -Creatinine slightly worse today at 1.58 Creatinine remains around-1.5 Okay to continue current doses of diuretics DM II -Uses an insulin pump but did not bring supplies -Recent a1c in March 2018 of 6.4 -Basal/bolus insulin per protocol -BSG AC HS -diabetic teaching -appreciated pharmacy input and recommendation CAD -Stable, no chest pain -Continue aspirin, metoprolol, nitrates, statin HTN -Currently normotensive -Continue metoprolol, Imdur Mood disorder -Cont bupropion, Ativan PRN S/p tracheostomy -Trach care, per nursing -Cont home O2 HS -no acute issue DVT Ppx: SQ heparin Code status: FULL per discussion with patient, daughter PCP: [facility] Dispo: Admit to med/surg. Discharge home today Vital Signs: Lab Results:
[2018-06-16] MEDS: LEVOFLOXACIN 750 MG TAB PO SCH (12:08)
--- NOTE | 2018-06-16 13:00 | Clinical Documentation Query ---
CLINICAL DOCUMENTATION QUERY Dr. CASAS, Noted some confusing documentation in the clinical record. There is documentation of sepsis and severe sepsis but also "Meets SIRS criteria". In your clinical opinion is this patient being managed for: ( + ) Sepsis ( ) Sepsis was ruled out ( ) Not Agree ( ) Other explanation of clinical findings (No explanation is considered a No Response) ( ) Unable to determine ( ) Need to Discuss (Phone CDS or qliq) (No discussion is considered a No Response) Please clarify and document your clinical opinion in the progress notes and discharge summary. Terms such as "probable", "suspected", "likely", "questionable", "possible", or "still to be ruled out" are acceptable. IF IN AGREEMENT, YOU MUST DOCUMENT ABOVE DIAGNOSTIC STATEMENT IN DAILY PROGRESS NOTES AND DISCHARGE SUMMARY. This document is not part of the patient's record. Thank You, Marcella Small RN [phone]
[2018-06-16] MEDS ORDERED: LVQ750 PO (14:54)
[2018-06-16] MEDS ORDERED: LCTX PO (14:54)
--- NOTE | 2018-06-16 15:00 | Discharge Instructions ---
Discharge Instructions Date of Service Jun 16, 2018. Admission Reason for Admission: Sepsis Discharge Discharge Diagnosis / Problem: Complicated Bronchitis,Chronic Diastolic Heart Failure,Fluid Overload,Obesi Discharge Goals Goal(s): Prevent Disease Progression Activity Recommendations Activity Limitations: resume your previous activity . Instructions / Follow-Up Instructions / Follow-Up Dr Salazar on 06/22/18 at 1:45 PM.Keep appointment with your Cardiology Current Hospital Diet Patient's current hospital diet: Low Sodium Diet (2gm Na), Diabetes Type 2 Diet Discharge Diet Recommended Diet: Low Sodium Diet (2gm Na), Diabetes Type 2 Diet Pending Studies Studies pending at discharge: no Medical Emergencies . Who to Call and When: Medical Emergencies: If at any time you feel your situation is an emergency, please call 911 immediately. . Non-Emergent Contact Non-Emergency issues call your: Primary Care Provider . Past History Medical & Surgical History: (1) Right ventricular dysfunction (2) COPD (chronic obstructive pulmonary disease) (3) Chronic respiratory failure (4) Hypothyroid (5) Tracheostomy in place (6) Dyslipidemia (7) CKD (chronic kidney disease), stage III (8) DM type 2 (diabetes mellitus, type 2) (9) Bronchiectasis (10) MRSA (methicillin resistant staph aureus) culture positive (11) History of appendectomy (12) History of cholecystectomy (13) History of tonsillectomy and adenoidectomy (14) S/P IVC filter (15) History of hysterectomy . "Provider Documentation" section prepared by Jhony Pat. .
--- NOTE | 2018-06-17 08:10 | Discharge Summary ---
Discharge Summary Date of Service Jun 17, 2018. Discharge Summary Admission Date: Jun 12, 2018 at 22:24 Discharge Date: Jun 16, 2018 Discharge Disposition: Home with services Principal Diagnosis: Complicated Bronchitis,Chronic Diastolic Heart Failure,Fluid Overload,Obesity Secondary Diagnoses/Problems: Please see H&P and Hospital Progress note Consultations: Pulmonary Medication Reconciliation New Medications: Lactobacillus Acidophilus (Lactinex) Tab 4 TAB PO BID, #60 TAB Levofloxacin (Levofloxacin) 750 Mg Tab 750 MG PO DAILY@11 for 6 Days, #6 TAB Continued Medications: Acetaminophen (Tylenol Extra Strength) 500 Mg Tab 1 DOSE PO UD PRN for Pain Albuterol Sulfate (Proair Respiclick) 108 Mcg/Act Aer 2 PUFFS INH Q4 PRN for SOB/Wheezing Aspirin (Aspirin Ec) 81 Mg Tab 81 MG PO DAILY Atorvastatin (Lipitor) 20 Mg Tab 20 MG PO DAILY Benzonatate (Tessalon Perles) 100 Mg Cap 100 MG PO TID Bupropion (Wellbutrin Sr) 100 Mg Ertab 300 MG PO DAILY Takes 1 100 MG TABLET IN AM TAKES 2 100 MG TABLET IN PM Clotrimazole W/ Betamethasone (Lotrisone) 1 Cre Cre 1 APPLN TOP BID APPLY TOPICALLY TO GENITAL AREA Desloratadine (Clarinex) 5 Mg Tab 5 MG PO DAILY Docusate Sodium (Colace) 100 Mg Cap 100 MG PO BID Ergocalciferol (Vitamin D 68217 Unit) 50,000 Unit Cap 82458 UNIT PO MWF Folic Acid (Folvite) 1 Mg Tab 1 MG PO DAILY Guaifenesin La (Guaifenesin Er) 600 Mg Tabcr 600 MG PO BID PRN for Cough Home O2 Therapy (Oxygen) Gas 5 LITERS NA PRN 5 LITERS PER MINUTE WHILE SLEEPING VIA TRACH. Hydrogen Peroxide (Hydrogen Peroxide) 3 % Brianna 1 PINT TR UD ONE PINT TO BE USED WITH TRACH CARE. Insulin Glargine (Lantus Solostar) 100 Unit/Ml Inj 1 DOSE SC UD PRN for PUMP FAILURE IF INSULIN PUMP FAILS, PLEASE USE ONCE DAILY. Insulin Glargine (Lantus) 100 Unit/Ml Inj 75 UNITS SC BID Insulin Human Lispro (Insulin Humalog Pump ) Pump 1 EA N/A UD MAX DAILY DOSE OF 400 UNITS DAILY. Insulin Lispro (Human) (Humalog) 100 Unit/Ml Inj 1 DOSE XX DAILY USE VIA PUMP. MAX DAILY DOSE OF 400 UNITS. Ipratropium-Albuterol (Duoneb) 3 Ml Nebu 1 TREATMENT INH QID FOR INCREASED COUGHING, WHEEZING OR SHORTNESS OF BREATH Ipratropium-Albuterol (Combivent Respimat) 1 Aer Aer 1 PUFFS INH QID Isosorbide Mononitrate (Imdur Ext Rel) 60 Mg Tab 60 MG PO DAILY Ketoconazole (Ketoconazole) 45 Appln/15 Gm Cr 1 APPLN TOP BID KETOCONAZOLE 2% CREAM TO FEET, TWICE DAILY. Levothyroxine Sodium (Levothyroxine Sodium) 200 Mcg Tab 300 MCG PO 2XWK 1.5 OF A 200 MCG TABLET ON MON AND TH. Levothyroxine Sodium (Levothyroxine Sodium) 200 Mcg Tab 200 MCG PO 5XWK ONE 200 MCG TABLET ON TUE, , WED, FRI AND SAT. Lorazepam (Ativan) 1 Mg Tab 1 MG PO Q8 PRN for ANXIETY, AGITATION OR SLEEP Metoprolol Tartrate (Lopressor) (Lopressor) 25 Mg Tab 12.5 MG PO BID 1/2 OF A 25MG TABLET, TWICE DAILY. Montelukast Sodium (Singulair) 10 Mg Tab 10 MG PO DAILY Multivitamin (Multivitamin) Tab 1 TAB PO DAILY Nitroglycerin (Nitrostat) 0.4 Mg Tab 0.4 MG UT PRN PRN for Chest Pain DO NOT EXCEED A TOTAL OF 3 DOSES IN 15 MINUTES. Pantoprazole (Protonix) 40 Mg Tab 40 MG PO DAILY Potassium Chloride (Potassium Chloride ER) 20 Meq Tab 20 MEQ PO DAILY Spironolactone (Aldactone) 25 Mg Tab 25 MG PO DAILY Topiramate (Topamax) 100 Mg Tab 100 MG PO QAM ONE 100 MG TABLET EVERY MORNING. Topiramate (Topamax) 100 Mg Tab 200 MG PO HS TWO 100 MG TABLETS AT BEDTIME Torsemide (Demadex) 20 Mg Tab 20 MG PO BID Tramadol (Ultram) 50 Mg Tab 50 MG PO BID Triamcinolone Acet (Triamcinolone Acetonide) 0.5 % Cre 1 APPLN TOP BID Admission Information HPI (per Admitting provider): This is a 62-year-old female with a PMH of chronic right-sided heart failure, obesity hypoventilation syndrome, COPD, bronchiectasis, s/p tracheostomy in 2007 and other problems listed below who presents with fever and generalized weakness starting this afternoon. Per daughter, patient was in normal state of health earlier today but then began to act generally weak and lethargic around 2 PM. Had a productive white cough, shortness of breath and felt shaky. Was most recently admitted in February 2018 for CHF exacerbation and diuresed approximately 50 pounds. Has successfully kept that weight off since discharge and has been compliant with daily diuretics (torsemide 20 mg twice daily, spironolactone 25 mg daily). Has also reportedly maintained strict compliance with diabetic and low-sodium diet, with a 2 L fluid restriction. Denies any lightheadedness, visual changes, chest pain, wheezing, abdominal pain, nausea, vomiting, bowel or bladder changes. Lower extremity edema is at baseline. Uses oxygen at night. In route to the ED, EMS reported a fever of 103.1. Physical Exam (per Admitting): General Appearance: + mild distress, + obese (morbid) Eyes: normal inspection, PERRL, sclerae normal ENT: normal ENT inspection, hearing grossly normal, pharynx normal (dry mucous membranes ) Neck: supple, thyroid normal, trachea midline, + pertinent finding (s/p tracheostomy) Respiratory/Chest: chest non-tender, no respiratory distress, no accessory muscle use, + decreased breath sounds, + rhonchi (scattered) Cardiovascular: normal peripheral pulses, + tachycardia, + pertinent finding (trace BLE edema) Abdomen/GI: non tender, soft, no organomegaly Extremities/Musculoskelatal: normal inspection, no calf tenderness, no pedal edema Neurologic/Psych: no motor/sensory deficits, alert, normal mood/affect, oriented x 3 Skin: normal color, warm/dry, + pertinent finding (BLE with a few open wounds, no drainage or surrounding erythema) Hospital Course This is a 62-year-old female with a PMH of chronic right-sided heart failure, obesity hypoventilation syndrome, COPD, bronchiectasis, s/p tracheostomy in 2007 and other problems listed below who presents with fever and generalized weakness starting this afternoon. Left inner thigh pain Associated with the lump We will get ultrasound to evaluate and rule out any abscess formation Fluid collection but no cellulitis Denies any more pain Complicated bronchitis -In setting of COPD, bronchiectasis, obesity hypoventilation syndrome -Meets SIRS criteria with fever of 38.2, tachycardia of 122 -Leukocytosis of 17.8, no clear source of infection on CXR, urine -Lactic acid elevated to 2.5. Procalcitonin minimally high at 0.81 -Given Levaquin, Xopenex, IV solu-medrol in ED -Blood and sputum cultures pending -Continue neb treatments, steroids, empiric abx with Levaquin and Vancomycin -Continue home anika Rutherford -Pulm consulted , appreciate input and recommendation -Feels a lot better today -Sputum culture unremarkable -Discussed with pulmonary, will discontinue IV vancomycin and continue with oral Levaquin to finish the course -Clinically a lot better and likely to be discharged on oral antibiotic tomorrow -Discussed with the pulmonary and she will be discharged home today on oral Levaquin We will continue other home-medications for COPD Chronic right-sided heart failure:Compensated now -Was admitted for exacerbation in February 2018, diuresed 50 lbs -Echo from Dec 2017 with normal LV function, EF : 55-60%, grade 1 diastolic dysfunction -Has kept weight stable with fluid restriction, low Na diet, aggressive PO diuresis -Continue torsemide 20mg BID, spirolactone 25mg daily -Strict I&Os, daily weights -will keep her on dry side -Has been started on her home medications -Renal function is slightly worse but creatinine less than 2 -We will make an outpatient appointment with polisher brass on discharge -Remains dry, will continue diuretics as per polisher brass recommendation CKD III -Cr 1.53, GFR 36 -At baseline -Creatinine slightly worse today at 1.58 Creatinine remains around-1.5 Okay to continue current doses of diuretics DM II -Uses an insulin pump but did not bring supplies -Recent a1c in March 2018 of 6.4 -Basal/bolus insulin per protocol -BSG AC HS -diabetic teaching -appreciated pharmacy input and recommendation CAD -Stable, no chest pain -Continue aspirin, metoprolol, nitrates, statin HTN -Currently normotensive -Continue metoprolol, Imdur Mood disorder -Cont bupropion, Ativan PRN S/p tracheostomy -Trach care, per nursing -Cont home O2 HS -no acute issue DVT Ppx: SQ heparin Code status: FULL per discussion with patient, daughter PCP: [facility] Dispo: Admit to med/surg. Discharge home today Total time spent on discharge = 35 minutes This includes examination of the patient, discharge planning, medication reconciliation, and communication with other providers. Discharge Instructions Date of Service Jun 16, 2018. Admission Reason for Admission: Sepsis Discharge Discharge Diagnosis / Problem: Complicated Bronchitis,Chronic Diastolic Heart Failure,Fluid Overload,Obesi Discharge Goals Goal(s): Prevent Disease Progression Activity Recommendations Activity Limitations: resume your previous activity . Instructions / Follow-Up Instructions / Follow-Up Dr Salazar on 06/22/18 at 1:45 PM.Keep appointment with your Cardiology Current Hospital Diet Patient's current hospital diet: Low Sodium Diet (2gm Na), Diabetes Type 2 Diet Discharge Diet Recommended Diet: Low Sodium Diet (2gm Na), Diabetes Type 2 Diet Pending Studies Studies pending at discharge: no Medical Emergencies . Who to Call and When: Medical Emergencies: If at any time you feel your situation is an emergency, please call 911 immediately. . Non-Emergent Contact Non-Emergency issues call your: Primary Care Provider . Past History Medical & Surgical History: (1) Right ventricular dysfunction (2) COPD (chronic obstructive pulmonary disease) (3) Chronic respiratory failure (4) Hypothyroid (5) Tracheostomy in place (6) Dyslipidemia (7) CKD (chronic kidney disease), stage III (8) DM type 2 (diabetes mellitus, type 2) (9) Bronchiectasis (10) MRSA (methicillin resistant staph aureus) culture positive (11) History of appendectomy (12) History of cholecystectomy (13) History of tonsillectomy and adenoidectomy (14) S/P IVC filter (15) History of hysterectomy . "Provider Documentation" section prepared by Jhony Pat. . <Electronically signed by Jhony Pat M.D.> Signed: 06/16/18 1500 Additional Copies To Rowan Leos D.O.
== END 2018-06-16 17:39 | disposition home health service (06) | DRG 871 ==
LOC: EDBD 17:09 → C.EDC 17:10 → EDBEDREQ 21:47 → ENRESERV 22:07 → CANRESERV 22:07 → C.2T 22:24 → CANBEDREQ 22:43 → ENRESERV 22:55
PROVIDERS: ADMIT Internal Medicine; ATTEND Internal Medicine
DX: A41.9 Sepsis, unspecified organism (principal); J18.9 Pneumonia, unspecified organism; J96.21 Acute and chronic respiratory failure with hypoxia; J44.1 Chronic obstructive pulmonary disease with (acute) exacerbation; E66.2 Morbid (severe) obesity with alveolar hypoventilation; N17.9 Acute kidney failure, unspecified; E87.2 Acidosis; Z68.44 Body mass index [BMI] 60.0-69.9, adult; I13.0 Hypertensive heart and chronic kidney disease with heart failure and stage 1 through stage 4 chronic kidney disease, or unspecified chronic kidney disease; I50.32 Chronic diastolic (congestive) heart failure; N18.3 Chronic kidney disease, stage 3 (moderate); E78.5 Hyperlipidemia, unspecified; E03.9 Hypothyroidism, unspecified; Z86.14 Personal history of Methicillin resistant Staphylococcus aureus infection; Z93.0 Tracheostomy status; Z83.3 Family history of diabetes mellitus; Z82.49 Family history of ischemic heart disease and other diseases of the circulatory system; Z79.4 Long term (current) use of insulin; E11.21 Type 2 diabetes mellitus with diabetic nephropathy; Z88.1 Allergy status to other antibiotic agents; Z88.8 Allergy status to other drugs, medicaments and biological substances; Z88.0 Allergy status to penicillin; R65.20 Severe sepsis without septic shock; Z86.74 Personal history of sudden cardiac arrest; Z86.718 Personal history of other venous thrombosis and embolism; Z95.828 Presence of other vascular implants and grafts; Z85.43 Personal history of malignant neoplasm of ovary; I50.812 Chronic right heart failure; Z96.41 Presence of insulin pump (external) (internal)

== ENCOUNTER 2019-04-06 12:27 | Observation (INO) ==
--- OUTSIDE RECORDS SUMMARY | 2019-04-06 12:30 | External Medical Summary | Continuity of Care Document ---
:1955 Author Name Linda Golden, Provider Address Unavailable Unavailable , Care Team Providers Name Role Phone Krystina Golden, Cy Unavailable [email or web address] Bryce Malin PA-C Unavailable [email or web address] Osito Allen III, M.D. Unavailable [email or web address] Stacy BECERRIL Unavailable [email or web address] Donavan Golden Unavailable [email or web address] Heidi TOMPKINS Unavailable [email or web address] Steven Kyle PA-C Unavailable [email or web address] Fabrizio CAMPBELL Unavailable Unavailable Unavailable Unavailable Unavailable Problems Hypothyroidism (244.9) (E03.9) Hypertension (401.9) (I10) Dyslipidemia (272.4) (E78.5) Depression (311) (F32.9) Edema leg (782.3) (R60.0) Myoclonus (333.2) (G25.3) Hemoptysis (786.30) (R04.2) MRSA infection (041.12) (A49.02) Anxiety (300.00) (F41.9) Candidiasis (112.9) (B37.9) Common migraine without aura (346.10) (G43.009) Coronary artery disease (414.00) (I25.10) Type 2 diabetes mellitus (250.00) (E11.9) Cor pulmonale (416.9) (I27.81) Cough (786.2) (R05) assisted current use of systemic steroids (V58.65) (Z79.52) Tracheobronchitis (490) (J40) Allergic rhinitis (477.9) (J30.9) 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) Chronic diastolic congestive heart failure (428.32) (I50.32) Hypersomnia with sleep apnea (780.53) (G47.10) Memory loss (780.93) (R41.3) Bronchiectasis (494.0) (J47.9) Chronic obstructive pulmonary disease (496) (J44.9) Chronic respiratory failure (518.83) (J96.10) Allergies and Adverse Reactions Doxycycline Monohydrate CAPS (Adverse Event) Reaction: Dizziness Duratuss A TBCR (Allergy) Effexor XR CP24 (Allergy) Elavil TABS (Allergy) Glucophage XR TB24 (Allergy) Neurontin TABS (Allergy) Penicillins (Allergy) Reaction: Anaphyla xis, Angioedema, Hives Medications Ipratropium-Albuterol 0.5-2.5 (3) MG/3ML Inhalation Solution; inhale contents of 1 vial four times a day in nebulizer JONE Malin Start: 5 Quantity: 3 60 x 3 ML Plas Cont Refills: 5 Vitamin D (Ergocalciferol) 72665 UNIT Oral Capsule; 1 CAP ON TUE-TUE-TUE Start: 08-Apr-2015 Refills: 0 Torsemide 20 MG Oral Tablet; TAKE 1 TABLET BY MOUTH DAILY JONE Roy Start: 18-Jan-2017 Quantity: 30 Refills: 5 Isosorbide Mononitrate ER 60 MG Oral Tab let Extended Release 24 Hour; TAKE 1 TABLET ONCE DAILY. Start: 08-Apr-2015 Refills: 0 Aldactone 25 MG Oral Tablet; TAKE 1 TABLET DAILY. Start: 26-Apr-2018 Refills: 0 Colace 100 MG Oral Capsule; TAKE 1 CAPSULE TWICE DAILY NE EDED. Start: 26-Apr-2018 Refills: 0 Potassium Chloride ER 20 MEQ Oral Tablet Extended Release Start: 26-Apr-2018 Refills: 0 HumaLOG 100 UNIT/ML Subcutaneous Solution Start: 08-Apr-2015 Refills: 0 Metoprolol Tartrate 25 MG Oral Tablet; 1/2 tab po bid Start: 08-Apr-2015 Refills: 0 Folic Acid 1 MG Oral Tablet; TAKE 1 TABLET DAILY. Start: 08-Apr-2015 Quantity: 30 Refills: 5 Azithromycin 250 MG Oral Tablet; TAKE 1 TABLET BY MOUT H THREE TIMES A WEEK LEDA Gordon Start: 07-Dec-2018 Quantity: 12 Refills: 5 Klor-Con M10 10 MEQ Oral Tablet Extended Release; TAKE 1 TABLET TWICE DAILY. Chantel Flaherty Start: 12-Feb-2016 Quantity: 60 Refills: 5 Nitrostat 0.4 MG Sublingual Tablet Subli ngual; DISSOLVE 1 TABLET UNDER THE TONGUE NEEDED FOR CHEST PAIN. Start: 08-Apr-2015 Refills: 0 Saline Flush 0.9 % Intravenous Solution; use in nebulizer for moisture every 4 hours JONE Malin Start: 28-Apr-2018 Quantity: 1 100 x 10 ML Syringe Refills: 5 Saline Solution; USE ONE 4ML VIAL OF 7% SALINE VIA NEBULIZER EVERY 3-4 HOURS NEEDED JONE Malin Start: 26-Apr-2018 Quantity: 2 355 ML Bottle Refills: 0 traMADol HCl - 50 MG Oral Tablet; TAKE 1 TABLET TWICE DAILY NEEDED. Alejandro FORMAN M.D. E. [facility] Start: 10-Jun-2015 Quantity: 60 Refills: 1 Oxygen; 5LPM @ HS Start: 08-Apr-2015 Quantity: 1 Refills: 0 Aspirin 81 MG TABS; TAKE 1 TABLET DAILY. Start: 08-Apr-2015 Refills: 0 Levothyroxine Sodium 200 MCG Oral Tablet ; TAKE 1 TABLET DAILY. and 100mcg MON & THURS Refills: 0 Atorvastatin Calcium 20 MG Oral Tablet; TAKE 1 TABLET DAILY DIRECTED. Refills: 0 Ativan 1 MG Oral Tablet; TAKE 1 TABLET EVERY 8 HOURS A S NEEDED. Alejandro FORMAN M.D. E. P. Refills: 0 Pantoprazole Sodium 40 MG Oral Tablet Delayed Release; TAKE 1 TABLET DAILY. Refills: 0 buPROPion HCl - 100 MG Oral Tablet; TAKE 1 TABLET 3 times da ward Refills: 0 Topiramate 100 MG Oral Tablet; TAKE ONE TABLET BY MOUTH EVERY MORNING AND 2 TABLETS IN THE EVENING JONE Kyle Start: 25-Nov-2011 Quantity: 90 Refills: 5 Ventolin HFA 108 (90 Base) MCG/ACT Inhal ation Aerosol Solution; INHALE 2 PUFFS EVERY 4 HOURS NEEDED JONE Malin Start: 04-Feb-2016 Quantity: 1 18 GM Inhaler Refills: 5 Montelukast Sodium 10 MG Oral Tablet; TAKE 1 TABLET BY MOUTH DAILY JONE Malin Start: 15-Feb-2019 Quantity: 30 Refills: 5 Combivent Respimat 20-100 MCG/ACT Inhala tion Aerosol Solution; INHALE 1 PUFFS 4 times daily Chantel Go Start: 08-Apr-2015 Quantity: 1 4 GM Inhaler Refills: 5 Desloratadine 5 MG Oral Tablet; take 1 tablet by mouth once daily JONE Malin Start: 09-Oct-2018 Quantity: 30 Refills: 5 Benzonatate 100 MG Oral Capsule; TAKE 1 CAPSULE 3 TIME S DAILY. JONE Malin Start: 28-Jan-2017 Quantity: 60 Refills: 1 Procedures History of Cholecystectomy Status: Compl eted History of Hysterectomy Status: Complete d History of Appendectomy Status: Complete d History of Tonsillectomy Status: Complet ed Immunizations Fluzone Quadrivalent Intramuscular Suspension On: 26-Aug-2015 16:10 Lot #: [id number], [employer] Family History Father Family history of suicide (V17.0) (Z81.8) Status: Active Mother Family history of congestive heart failure (V17.49) (Z82.49) Status: Active Brother Family history of lung cancer (V16.1) (Z80.1) Status: Active Social History - Smoking Status Never smoker Plan of Treatment Planned Encounters Appointment; Bryce Malin PA-C Start: 28-Jun-2019 13:00 Req uest Planned Observations Planned Goals not documented Results No Known Results Results not documented Vital Signs 28-Mar-2019 13:06 Systolic 120 mm[Hg] Diastolic 60 mm[Hg] Temperature 99.1 f O2 Saturation 96 % Comments: Source: RA Respiration 20 /min Heart Rate 75 /min Weight 321.5 lb BSA Calculated 2.37 m2 BMI Calculated 56.95 kg/m2 Encounters Appointment; Bryce Malin PA-C 28-Mar-2019 13:15 Encounter Diagnosis: Problem not documented Appointment; Sydnee Gordon CRNP 28-Dec-2018 13:30 Encounter Diagnosis: Problem not documented Appointment; Sydnee Gordon CRNP 27-Sep-2018 13:30 Encounter Diagnosis: Problem not documented Appointment; Bryce Malin PA-C 27-Jun-2018 13:45 Encounter Diagnosis: Problem not documented Appointment; Bryce Malin PA-C 26-Apr-2018 14:00 Encounter Diagnosis: Problem not documented Appointment; Bryce Malin PA-C 21-Feb-2018 15:15 Encounter Diagnosis: Problem not documented Appointment; Cy Flaherty M.D. 02-Feb-2018 14:30 Encounter Diagnosis: Problem not documented Appointment; Bryce Malin PA-C 22-Dec-2017 15:15 Encounter Diagnosis: Problem not documented Appointment; Bryce Malin PA-C 14-Dec-2017 13:15 Encounter Diagnosis: Problem not documented Appointment; Bryce Malin PA-C 30-Nov-2017 14:00 Encounter Diagnosis: Problem not documented Appointment; Bryce Malin PA-C 09-Nov-2017 10:45 Encounter Diagnosis: Problem not documented Appointment; Cy Flaherty M.D. 12-Jul-2017 13:45 Encounter Diagnosis: Problem not documented Appointment; Bryce Malin PA-C 28-Jun-2019 13:00 Encounter Diagnosis: Problem not documented
[2019-04-06] MEDS ORDERED: ASPIRIN CHEW 324 MG PO STA (13:01)
[2019-04-06 13:10] LABS: Basophils # (auto) 0.03 K/uL (0-0.2); Basophils % (auto) 0.3 %; Eosinophils # (auto) 0.19 K/uL (0-0.5); Eosinophils % (auto) 2.1 %; Hematocrit (blood only) 40.4 % (37-47); Hemoglobin 12.8 g/dL (12.0-16.0); Immature Granulocytes # (auto) 0.05 K/uL (0.00-0.02); Immature Granulocytes % (auto) 0.5 %; Lymphocytes # (auto) 1.82 K/uL (1.2-3.4); Lymphocytes % (auto) 19.8 %; Mean Corpuscular Hgb Conc 31.7 g/dL (32-36); Mean Corpuscular Volume 89.4 fL (80-100); Mean Platelet Volume 9.9 fL (7.4-10.4); Monocytes # (auto) 0.72 K/uL (0.11-0.59); Monocytes % (auto) 7.8 %; Neutrophils % (auto) 69.5 %; Platelet Count 252 K/uL (130-400); RDW Standard Deviation 45.7 fL (36.4-46.3); Red Blood Count 4.52 M/uL (4.2-5.4); White Blood Count 9.21 K/uL (4.8-10.8)
[2019-04-06 13:20] LABS: Alanine Aminotransferase 26 U/L (12-78); Aspartate Aminotransferase 19 U/L (15-37); BUN Creatinine Ratio 13.8 (10-20); Bilirubin Direct 0.1 mg/dl (0-0.2); Blood Urea Nitrogen 22 mg/dl (7-18); Calcium 9.2 mg/dl (8.5-10.1); Carbon Dioxide 25 mmol/L (21-32); Chloride 109 mmol/L (98-107); Est GFR (African American) 39.3; Est GFR (Non-African American) 33.9; Glucose 130 mg/dl (70-99); Potassium 3.7 mmol/L (3.5-5.1); Sodium 142 mmol/L (136-145)
[2019-04-06 13:22] LABS: Partial Thromboplastin Ratio 0.9; Partial Thromboplastin Time 23.9 Seconds (21.0-31.0); Prothrombin Time 10.6 Seconds (9.0-12.0)
[2019-04-06 13:25] LABS: Alkaline Phosphatase 91 U/L (45-117); Bilirubin,Total 0.5 mg/dl (0.2-1); Troponin I < 0.015 ng/ml (0-0.045)
--- NOTE | 2019-04-06 14:16 | XRay Report ---
XR abdomen 2V w PA chest CLINICAL HISTORY: epigastric pain/cp pain COMPARISON STUDY: 06/12/2018 FINDINGS: Moderate stable cardiomegaly. Lungs are clear. Tracheostomy significant position. FL somewhat distended stomach. Normal nonobstructive bowel pattern. Postoperative changes right upper quadrant. IMPRESSION: 1. Moderate stable cardiomegaly.. 2. Mild gastric distention. The above report was generated using voice recognition software. It may contain grammatical, syntax or spelling errors. Electronically signed by: Neftali Trotter M.D. 04/06/2019 2:14 PM
--- NOTE | 2019-04-06 16:16 | History & Physical Report ---
Date of Service April 06, 2019 Assessment & Plan (1) Chest pain: (2) Palpitations: This is a 63-year-old female who has a significant past medical history of chronic respiratory failure with trach in place since 2007, obesity hypoventilation syndrome, COPD, RASHAAD on nocturnal 5 L O2, HTN, HLD, chronic right-sided/diastolic CHF, T2DM on insulin pump, CKD stage III, hypothyroidism, migraine, anxiety who presents to [facility] ED secondary to chest pain that began at approximately 9:30 AM. While in ED chest pain did improve to a 4/10 with administration of 4 baby aspirin. Her initial troponin was normal and EKG was unchanged from prior tracings. Her CBC was relatively unremarkable. BMP compatible with CKD with BUN 22 and creatinine of 1.61, glucose 130. Her LFTs and lipase were WNL. Chest x-ray and KUB revealed moderate stable cardiomegaly with mild gastric dis tention. Chest pain likely noncardiac given ability to reproduce chest pain with palpation; however hx is suspicious. Her heart score is 4 and given multiple comities will admit for cardiac chest pain work-up Admit under observation to telemetry Consult cardiology Dr. Mendoza trend troponin q6hr fasting lipid panel in a.m. (last A1C was 03/27) check tsh obtain echocardiogram monitor on tele given complaints of palpitations (if unremarkable pt may need outpt holter monitor/zio consider dobutamine stress echo give trop/ecg unchanged (3) Chronic respiratory failure: Tracheostomy in place, O2 at bedtime (4) CHF (congestive heart failure): Last echocardiogram 12/2017 revealed right ventricular hypokinesis with systolic dysfunction, normal left ventricular systolic function EF 55%, grade 1 diastolic dysfunction Currently she is euvolemic Baseline weight appears to be 150 kg Continue ASA, metoprolol, Demadex, Aldactone, KCl supplement Monitor potassium (5) COPD (chronic obstructive pulmonary disease): Continue Combivent, albuterol neb, Singulair, azithromycin 3 times weekly for suppressive therapy Tracheostomy in place and O2 at bedtime (6) Hypoventilation associated with obesity: trach in place 5L of O2 at HS encourage weight loss strategies (7) RASHAAD (obstructive sleep apnea): 5L O2 at HS (8) DM type 2 (diabetes mellitus, type 2): A1c on 03/27 6.9 Well-controlled on insulin pump Will continue insulin pump while inpatient for now (pt adamant about managing her pump given previous experience with hospitalization and insulin pump removed) (9) HTN (hypertension): Blood pressure controlled a little on the low side Outpatient regimen consist of metoprolol, Demadex, Aldactone, Imdur Monitor (10) Dyslipidemia: Continue statin Fasting lipid panel in a.m. (11) CKD (chronic kidney disease), stage III: Baseline creatinine 1.5-1.7 BUN/creatinine 22 and 1.61 today Follow BMP (12) Migraine: Continue Topamax (13) Hypothyroid: Continue levothyroxine Obtain TSH/T4 On 03/27 patient had TSH 0.03, T4 1.83 If still abnormal may need to decrease levothyroxine (14) Tracheostomy in place: Routine trach care Has been in place since 2007 after episode of cardiopulmonary arrest (15) Morbid obesity with BMI of 60.0-69.9, adult: Encourage lifestyle modifications BMI 60.7 per last outpt visit on 03/27 (16) DVT prophylaxis: Heparin sq and SCDs Disposition: Likely discharge to home when able Follow-up: PCP Dr. Kirby upon discharge along with appropriate cardiology follow-up Patient was seen and examined in collaboration with Dr. Pat, please see a ddendum History of Present Illness Chief Complaint: Chest pain since 9:30 AM Primary Care Provider: Rowan Leos, This is a 63-year-old female who has a significant past medical history of chronic respiratory failure with trach in place since 2007, obesity hypoventilation syndrome, COPD, RASHAAD on nocturnal 5 L O2, HTN, HLD, chronic right-sided/diastolic CHF, T2DM on insulin pump, CKD stage III, hypothyroidism, migraine, anxiety who presents to [facility] ED secondary to chest pain that began at approximately 9:30 AM. Daughter is at bedside. Pain was left-sided, constant, started abruptly with patient at rest, associated with tingling to left upper extremity and nausea, described as, 'something sitting on my chest." Denies any recent injury. Symptoms were not worse with change in position, leaning forward, coughing or taking deep breaths. Symptoms are rated as a 7 out of 10 initially. During ED improved to 4/10 secondary to 4 baby ASA. Has never had anything like this in the past. She also had 4 intermittent episodes of, "fluttering in my chest," that lasted for a few seconds before resolving. Daughter called into cardiology nurse who recommended patient seek ED evaluation. Given patient's morbid obesity she ambulates with walker. She denies any chest pain or dyspnea on exertion recently with activity. She denies any recent illness, fever, chills, sweats, lightheadedness, dizziness, syncope, shortness of breath at rest or with exertion, cough, hemoptysis, emesis, abdominal pain, dysuria, increased urgency or frequency with urination, hematuria. She does elicit to having loose bowels this morning and last evening. Her appetite has been normal and she denies any increase or decrease in weight. Denies any john swelling. She does have excoriations to left upper extremity and bilateral lower extremities. 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 Chest pain was not worsened with food. Patient denies history of cardiac catheterization or coronary intervention in past. She has had a history of stress test but cannot remember when. While in ED chest pain did improve to a 4/10 with administration of 4 baby aspirin. Her initial troponin was normal and EKG was unchanged from prior tracings. Her CBC was relatively unremarkable. BMP compatible with CKD with BUN 22 and creatinine of 1.61, glucose 130. Her LFTs and lipase were WNL. Chest x-ray and KUB revealed moderate stable cardiomegaly with mild gastric distention. Allergies Allergy/AdvReac Type Severity Reaction Status Date / Time amitriptyline Allergy Unknown ` Verified 04/06/19 13:41 gabapentin Allergy Unknown ` Verified 04/06/19 13:41 metformin Allergy Unknown ` Verified 04/06/19 13:41 Penicillins Allergy Unknown ` Verified 04/06/19 13:41 pseudoephedrine Allergy Unknown ` Verified 04/06/19 13:41 tetracycline Allergy Unknown ` Verified 04/06/19 13:41 Home Medications Home Medications Medication Instructions Recorded Confirmed Type acetaminophen [Tylenol Extra 500 mg PO Q6H PRN 04/06/19 04/06/19 History Strength] acidophilus-pectin, citrus 1 cap PO DAILY 04/06/19 04/06/19 History [Acidophilus Probiotic] albuterol sulfate 2.5 mg INHALATION QID 04/06/19 04/06/19 History albuterol sulfate [ProAir HFA] 2 puff INHALATION Q4H PRN 04/06/19 04/06/19 History aspirin [Aspirin Low Dose] 81 mg PO DAILY 04/06/19 04/06/19 History atorvastatin 20 mg PO DAILY 04/06/19 04/06/19 History azithromycin 250 mg PO MOWEFR 04/06/19 04/06/19 History betamethasone dipropionate 1 applic TOPICAL DIRECTED 04/06/19 04/06/19 History bupropion HCl 300 mg PO DAILY 04/06/19 04/06/19 History clotrimazole 1 applic TOPICAL DIRECTED 04/06/19 04/06/19 History clotrimazole-betamethasone 1 applic TOPICAL BID 04/06/19 04/06/19 History [Lotrisone] desloratadine [Clarinex] 5 mg PO DAILY 04/06/19 04/06/19 History docusate sodium 100 mg PO BID 04/06/19 04/06/19 History docusate sodium [Col-Rite] 100 mg PO BID 04/06/19 04/06/19 History ergocalciferol (vitamin D2) 50,000 unit PO MOWEFR 04/06/19 04/06/19 History [Vitamin D2] folic acid 1 mg PO DAILY 04/06/19 04/06/19 History insulin lispro [Humalog U-100 400 unit CONTINUOUS SUBCUTANEOUS 04/06/19 04/06/19 History Insulin] INFUSION DIRECTED ipratropium-albuterol [Combivent 1 puff INHALATION QID 04/06/19 04/06/19 History Respimat] isosorbide mononitrate 60 mg PO DAILY 04/06/19 04/06/19 History ketoconazole 1 applic TOPICAL BID 04/06/19 04/06/19 History levothyroxine 200 mcg PO SUTUWEFRSA 04/06/19 04/06/19 History levothyroxine 300 mcg PO MOTH 04/06/19 04/06/19 History lorazepam 1 mg PO Q8H PRN 04/06/19 04/06/19 History metoprolol tartrate 12.5 mg PO BID 04/06/19 04/06/19 History montelukast 10 mg PO DAILY 04/06/19 04/06/19 History multivitamin 1 tab PO DAILY 04/06/19 04/06/19 History pantoprazole 40 mg PO DAILY 04/06/19 04/06/19 History potassium chloride 20 meq PO DAILY 04/06/19 04/06/19 History spironolactone 25 mg PO DAILY 04/06/19 04/06/19 History topiramate 100 mg PO DAILY 04/06/19 04/06/19 History topiramate 200 mg PO HS 04/06/19 04/06/19 History torsemide 20 mg PO BID 04/06/19 04/06/19 History tramadol 50 mg PO BID 04/06/19 04/06/19 History Past Med/Surg History Medical History CHF (congestive heart failure) (Chronic) COPD (chronic obstructive pulmonary disease) (Chronic) Chronic respiratory failure (Chronic) Tracheostomy in place (Chronic) Hypothyroid (Chronic) Anxiety (Chronic) Dyslipidemia (Chronic) Migraine (Chronic) CKD (chronic kidney disease), stage III (Chronic) DM type 2 (diabetes mellitus, type 2) (Chronic) Bronchiectasis (Chronic) Hypoventilation associated with obesity (Chronic) HTN (hypertension) (Chronic) MRSA (methicillin resistant staph aureus) culture positive (Chronic) "sputum 11/2015" Right ventricular dysfunction (Chronic) Sepsis (Resolved) Surgical History History of appendectomy (Chronic) History of cholecystectomy (Chronic) History of tonsillectomy and adenoidectomy (Chronic) S/P IVC filter (Chronic) History of hysterectomy (Chronic) Family History Mother Coronary heart disease COPD (chronic obstructive pulmonary disease) Social History Preferred Language: Venezuelan Communication Ability: Effective Delivery Tech Required: No Beliefs That Will Affect Care: None Current Living Situation: Family Current Living Situation Comment: Lives with Daughter Other Information That Helps Us Care for You: No Feels Safe at Home: Yes Safety Concerns: Feels Safe At This Time Smoking Status: Never smoker Hx Alcohol Use: No Hx Substance Use: No Review of Systems Review of Systems: As noted per HPI, 10 systems reviewed and negative unless noted above. Physical Exam Physical Exam: Gen: WD/WN, morbidly obese, female, NAD, sitting up in bed, pleasant, conversing easily Head: Normocephalic, Atraumatic Eyes: Sclera normal, no conjunctival injection, PERRLA, EOMI ENT: Gross hearing intact, normal pharynx, mucous membranes moist Neck: + Tracheostomy in place, supple, no adenopathy, No JVD, no bruit, Resp: Clear to auscultation b/l with decreased breath sounds at bases given poor inspiratory effort, no wheeze, rales, rhonchi. Normal insp/exp effort, no acc essory muscle use CV: Heart sounds distant given body habitus, regular rate, regular rhythm, no murmur, rub, gallop, or ectopy, chest pain reproducible to left upper sternal border in costochondral region Abd: Obese abdomen, insulin pump in place, +BS x 4, soft, nontender, nondistended Musculoskeletal: moves extremities active rom x 4, strength intact, good rating specialist strength Extremities: Trace to minimal edema bilaterally Skin: warm, moist, no rash, + excoriations to bilateral lower extremities and left upper extremities areas do not appear to be infected, negative turgor, cap refill < 2sec Neuro: Alert and oriented x 3, speech normal, good mood/affect, cran nerve 2-12 intact grossly : deferred Results & Data Vital Signs (Past 12 Hours) Vital Signs Temp Pulse Pulse Resp BP BP Pulse Ox 04/06/19 14:28 88 16 106/52 L 95 04/06/19 13:01 96 04/06/19 12:31 36.6 C 75 18 128/78 97 04/06/19 12:28 95 Laboratory Results Short CBC 04/06/19 Range/Units 12:50 WBC 9.21 (4.8-10.8) K/uL Hgb 12.8 (12.0-16.0) g/dL Hct 40.4 (37-47) % Plt Count 252 (130-400) K/uL BMP 04/06/19 12:50 Sodium 142 Potassium 3.7 Chloride 109 H Carbon Dioxide 25 BUN 22 H Creatinine 1.61 H Glucose 130 H Calcium 9.2 Cardiac Enzymes 04/06/19 04/06/19 Range/Units 12:50 12:50 Troponin I Cancelled < 0.015 Liver Function 04/06/19 04/06/19 Range/Units 12:50 12:50 Total Bilirubin Cancelled 0.5 Direct Bilirubin Cancelled 0.1 AST Cancelled 19 ALT Cancelled 26 Alkaline Phosphatase Cancelled 91 Albumin Cancelled 3.0 L Diagnostic Findings CXR/KUB: IMPRESSION: 1. Moderate stable cardiomegaly.. 2. Mild gastric distention. Medications Administered Discontinued Medications Aspirin (Aspirin) 324 mg PO NOW STA Stop: 04/06/19 13:02 Last Admin: 04/06/19 13:09 Dose: 324 mg Documented by: [id number] ECG Indication: chest pain Rate (beats per minute): 79 Rhythm: normal sinus Findings: + RBBB and + prolonged QT (QTC 474ms) Comparison ECG Date: from (03/27/19) Change: no significant change Code Status & VTE Plan Code Status Full code Discussed with patient and daughter VTE Prophylaxis Plan VTE Prophylaxis will be ordered: Yes Supervising Physician Co-Signing Physician Notes Attending addendum The patient was seen and examined in the emergency room This is a 63-year-old with significant past medical history of chronic respiratory failure with trach in place since 2007, obesity hypoventilation syndrome, COPD, RASHAAD on nocturnal 5 L O2, HTN, HLD, chronic right-sided/diastolic CHF, T2DM on insulin pump, CKD stage III, hypothyroidism, migraine, anxiety who presents to [facility] ED secondary to chest pain that began at approximately 9:30 AM. Her pain lasted for more than an hour and it happened while he was lying down Did not have any significant associated symptoms with it She did not have any pain during my examination in the emergency room On examination Morbidly obese, lying in bed without any symptoms Hemodynamically stable with blood pressure towards the lower side Chest-decreased breath sounds likely secondary to thick chest wall, no crackles Heart-S1-S2, regular Abdomen-distended, soft, nontender, bowel sounds present Extremities-trace to 1+ edema bilateral Admission labs, EKG and imaging studies reviewed Admitted with chest pain with episode of palpitation to rule out ACS/arrhythmias Has significant comorbid conditions as outlined above And agree with assessment plan as outlined above by JONE Jimenez Dr
[2019-04-06] MEDS ORDERED: GLUCAGON FOR INJ 1 MG VIAL SQ PRN ×2 (16:44→17:30)
[2019-04-06] MEDS ORDERED: GLUCOSE 10 TABS/TUBE PO PRN ×2 (16:44→17:30)
[2019-04-06] MEDS ORDERED: MAGNESIUM HYDROXIDE SUSP 30 ML UDC PO PRN (16:44)
[2019-04-06] MEDS ORDERED: DEXTROSE 50% 50 ML SYRINGE IV PRN ×2 (16:44→17:30)
[2019-04-06] MEDS ORDERED: GLUCOSE 40% GEL 15 GM TUBE PO PRN ×2 (16:44→17:30)
[2019-04-06] MEDS ORDERED: POLYETHYLENE (MIRALAX) 17 GM PACK PO PRN (16:44)
[2019-04-06] MEDS ORDERED: LEVOTHYROXINE SODIUM 200 MCG TABLET PO SCH (16:44)
[2019-04-06] MEDS ORDERED: ALUMINUM/MAGNESIUM SUSP 30 ML UDC PO PRN (16:44)
[2019-04-06] MEDS ORDERED: INSULIN LISPRO continuous subcutaneous infusion SCH (16:44)
[2019-04-06] MEDS ORDERED: LORazepam 1 MG TAB PO PRN (16:44)
[2019-04-06] MEDS ORDERED: ACETAMINOPHEN 325 MG TAB PO PRN (16:44)
[2019-04-06] MEDS ORDERED: ONDANSETRON INJ 2 MG/ML 2 ML VIAL IV PRN (16:44)
[2019-04-06] MEDS ORDERED: CARBOHYDRATES FOR HYPOGLYCEMIA PO PRN ×2 (16:44→17:30)
[2019-04-06] MEDS ORDERED: ALBUTEROL HFA 8 GM INHALER INH PRN (16:44)
[2019-04-06] MEDS ORDERED: NITROGLYCERIN SL 0.4 MG/TAB TAB SL PRN (16:44)
[2019-04-06] MEDS ORDERED: PHARMACY GLYCEMIC MGMT CONSULT PRN (17:28)
[2019-04-06] MEDS ORDERED: INSULIN HUMAN LISPRO (humaLOG) 100 UNITS/ML VIAL SC PRN (17:30)
[2019-04-06 17:32] LABS: T4 Free Thyroxine 1.58 ng/dl (0.8-1.6)
[2019-04-06] MEDS: TORSEMIDE 10 MG TAB PO SCH (18:25)
--- NOTE | 2019-04-06 18:36 | Emergency Department Note ---
Entered by Hyacinth Rodriguez acting as a scribe for Washington Diaz History of Present Illness General Chief complaint: Chest Pain Stated complaint: HEART FLUTTERS - PAIN IN CHEST - REF BY DOCTOR Time Seen by Provider: 04/06/19 12:55 Source: patient Limitations: no limitations History of Present Illness Provider complaint: chest pain Onset (ago): hour(s) 4 Location: chest Radiation: non-radiation Maximum Pain Intensity: 6 Quality: + sharp Associated symptoms: + shortness of breath and + other (+stomach tenderness); no fever/chills The patient is a 63 year old female who presents to the Emergency Room with complaints of chest pain that began 4 hours prior to arrival. The patient states that her chest pain is centralized and describes it as a sharp pain. The patient states that she has shortness of breath and tenderness in her stomach. The patient denies any fevers or chills. The patient denies being on any blood thinners but states that she does take a baby Aspirin daily. Home Medications Home Medications Medication Instructions Recorded Confirmed Type acetaminophen [Tylenol Extra 500 mg PO Q6H PRN 04/06/19 04/06/19 History Strength] acidophilus-pectin, citrus 1 cap PO DAILY 04/06/19 04/06/19 History [Acidophilus Probiotic] albuterol sulfate 2.5 mg INHALATION QID 04/06/19 04/06/19 History albuterol sulfate [ProAir HFA] 2 puff INHALATION Q4H PRN 04/06/19 04/06/19 His tory aspirin [Aspirin Low Dose] 81 mg PO DAILY 04/06/19 04/06/19 History atorvastatin 20 mg PO DAILY 04/06/19 04/06/19 History azithromycin 250 mg PO MOWEFR 04/06/19 04/06/19 History betamethasone dipropionate 1 applic TOPICAL DIRECTED 04/06/19 04/06/19 History bupropion HCl 300 mg PO DAILY 04/06/19 04/06/19 History clotrimazole 1 applic TOPICAL DIRECTED 04/06/19 04/06/19 History clotrimazole-betamethasone 1 applic TOPICAL BID 04/06/19 04/06/19 History [Lotrisone] desloratadine [Clarinex] 5 mg PO DAILY 04/06/19 04/06/19 History docusate sodium 100 mg PO BID 04/06/19 04/06/19 History docusate sodium [Col-Rite] 100 mg PO BID 04/06/19 04/06/19 History ergocalciferol (vitamin D2) 50,000 unit PO MOWEFR 04/06/19 04/06/19 History [Vitamin D2] folic acid 1 mg PO DAILY 04/06/19 04/06/19 History insulin lispro [Humalog U-100 400 unit CONTINUOUS SUBCUTANEOUS 04/06/19 04/06/19 History Insulin] INFUSION DIRECTED ipratropium-albuterol [Combivent 1 puff INHALATION QID 04/06/19 04/06/19 History Respimat] isosorbide mononitrate 60 mg PO DAILY 04/06/19 04/06/19 History ketoconazole 1 applic TOPICAL BID 04/06/19 04/06/19 History levothyroxine 200 mcg PO SUTUWEFRSA 04/06/19 04/06/19 History levothyroxine 300 mcg PO MOTH 04/06/19 04/06/19 History lorazepam 1 mg PO Q8H PRN 04/06/19 04/06/19 History metoprolol tartrate 12.5 mg PO BID 04/06/19 04/06/19 History montelukast 10 mg PO DAILY 04/06/19 04/06/19 History multivitamin 1 tab PO DAILY 04/06/19 04/06/19 History pantoprazole 40 mg PO DAILY 04/06/19 04/06/19 History potassium chloride 20 meq PO DAILY 04/06/19 04/06/19 History spironolactone 25 mg PO DAILY 04/06/19 04/06/19 History topiramate 100 mg PO DAILY 04/06/19 04/06/19 History topiramate 200 mg PO HS 04/06/19 04/06/19 History torsemide 20 mg PO BID 04/06/19 04/06/19 History tramadol 50 mg PO BID 04/06/19 04/06/19 History Allergies Allergy/AdvReac Type Severity Reaction Status Date / Time amitriptyline Allergy Unknown ` Verified 04/06/19 13:41 gabapentin Allergy Unknown ` Verified 04/06/19 13:41 metformin Allergy Unknown ` Verified 04/06/19 13:41 Penicillins Allergy Unknown ` Verified 04/06/19 13:41 pseudoephedrine Allergy Unknown ` Verified 04/06/19 13:41 tetracycline Allergy Unknown ` Verified 04/06/19 13:41 Past Med/Surg History Medical History CHF (congestive heart failure) (Chronic) COPD (chronic obstructive pulmonary disease) (Chronic) Chronic respiratory failure (Chronic) Tracheostomy in place (Chronic) Hypothyroid (Chronic) Anxiety (Chronic) Dyslipidemia (Chronic) Migraine (Chronic) CKD (chronic kidney disease), stage III (Chronic) DM type 2 (diabetes mellitus, type 2) (Chronic) Bronchiectasis (Chronic) Hypoventilation associated with obesity (Chronic) HTN (hypertension) (Chronic) MRSA (methicillin resistant staph aureus) culture positive (Chronic) "sputum 11/2015" Right ventricular dysfunction (Chronic) Sepsis (Resolved) Surgical History History of appendectomy (Chronic) History of cholecystectomy (Chronic) History of tonsillectomy and adenoidectomy (Chronic) S/P IVC filter (Chronic) History of hysterectomy (Chronic) Family History Mother Coronary heart disease COPD (chronic obstructive pulmonary disease) Social History Preferred Language: Serbian Communication Ability: Effective Leather Stitcher Required: No Beliefs That Will Affect Care: None Current Living Situation: Family Current Living Situation Comment: Lives with Daughter Other Information That Helps Us Care for You: No Feels Safe at Home: Yes Safety Concerns: Feels Safe At This Time Smoking Status: Never smoker Hx Alcohol Use: No Hx Substance Use: No Review of Systems See HPI for pertinent positives & negatives. and A total of 10 systems reviewed and were otherwise negative Physical Exam Vital Signs Vital Signs - 24 hr 04/06/19 12:28 04/06/19 12:31 04/06/19 13:01 Temperature 36.6 C Temperature Source Oral Sepsis Recent Fever Within 48 Hours No Sepsis New/Unexplained Change in Mental Status No Sepsis Action Taken by Nursing No Action Required Pulse Rate 75 Pulse Rate [Apical] Respiratory Rate 18 Respiratory Depth Normal Blood Pressure 128/78 Blood Pressure [Left Arm] Blood Pressure Mean 94 Blood Pressure Mean [Left Arm] Blood Pressure Position Sitting Pulse Oximetry 95 97 96 Oxygen Delivery Method Room Air Room Air Room Air 04/06/19 14:28 Temperature Temperature Source Sepsis Recent Fever Within 48 Hours Sepsis New/Unexplained Change in Mental Status Sepsis Action Taken by Nursing Pulse Rate Pulse Rate [Apical] 88 Respiratory Rate 16 Respiratory Depth Blood Pressure Blood Pressure [Left Arm] 106/52 L Blood Pressure Mean Blood Pressure Mean [Left Arm] 70 Blood Pressure Position Pulse Oximetry 95 Oxygen Delivery Method Room Air GENERAL: She is oriented to person, place, and time. She appears well-developed and well-nourished. She does not appear distressed. HENT: Exam performed. - Head: Normocephalic and atraumatic. - Right Ear: External ear normal. No mastoid tenderness. - Left Ear: External ear normal. No mastoid tenderness. - Mouth/Throat: The oropharynx is clear and moist. No trismus in the jaw. No dental abscesses or uvula swelling. No oropharyngeal exudate or tonsillar abscesses. EYES: Conjunctivae and EOM are normal. Pupils are equal, round, and reactive to light. Right eye exhibits no discharge. Left eye exhibits no discharge. No scleral icterus. NECK: Normal range of motion. Neck supple. No JVD present. No spinous process tenderness present. No carotid bruit present. No rigidity. Trach is present. No Brudzinski's sign and no Kernig's sign noted. CV: Normal rate, regular rhythm, normal heart sounds and intact distal pulses. There is no peripheral edema. Palpable radial pulses bue. PULM/CHEST: Effort normal and breath sounds normal. No respiratory distress. No stridor. She has no wheezes. She has no rales. Chest Wall: She exhibits no tenderness. ABD: Morbidly obese. The abdomen is soft. Bowel sounds are normal. She has no distension. No mass is present. There is no tenderness. There is no rebound, no guarding, no Mcclain's sign and no tenderness at McBurney's point. Rovsig negative. Morbidly obese. MUSC/SKEL: Normal range of motion. There is no peripheral edema, tenderness or deformity. LYMPH: No cervical adenopathy. NEURO: She is alert and oriented to person, place, and time. She has normal strength. No cranial nerve deficit or sensory deficit. Coordination and gait normal. GCS eye subscore is 4. GCS verbal subscore is 5. GCS motor subscore is 6. cerbellar tests wnl. SKIN: Skin is warm and dry. She is not diaphoretic. PSYCH: She has a normal mood and affect. Her behavior is normal. Judgment and thought content normal. Course 1258: The patient was evaluated in room B4B, and a complete history and physical examination were performed. 1400: The patient's vital signs are stable. The patient's labs and imaging are both within normal limits. The patient has a high heart score and will be admitted for chest pain. I discussed the admission plan with the patient and she was in agreement. I reviewed the patient's case with Dr. Marciano Mistry Hospitalist who will evaluate the patient for further hospitalization and admission. Consultations Consultation #1: Dr. Marciano Mistry Hospitalist Time: 14:23 Administered Medications Torsemide (Demadex) 20 mg PO BID17 ASIYA Stop: 05/06/19 17:59 Last Admin: 04/06/19 18:25 Dose: 20 mg Documented by: [id number] Discontinued Medications Aspirin (Aspirin) 324 mg PO NOW STA Stop: 04/06/19 13:02 Last Admin: 04/06/19 13:09 Dose: 324 mg Documented by: [id number] Medical Decision Making Medical Records Attestation: I reviewed the patient's medical records. Home Medications Current Medication List: was personally reviewed by me Laboratory Data Attestation: I reviewed the patient's lab results. Result diagrams: 04/06/19 12:50 04/06/19 12:50 Lab Results 04/06/19 04/06/19 04/06/19 Range/Units 12:50 12:50 12:50 WBC 9.21 (4.8-10.8) K/uL RBC 4.52 (4.2-5.4) M/uL Hgb 12.8 (12.0-16.0) g/dL Hct 40.4 (37-47) % MCV 89.4 (80-100) fL MCH 28.3 (25-34) pg MCHC 31.7 L (32-36) g/dL RDW Std Deviation 45.7 (36.4-46.3) fL RDW Coeff of Amee 14.0 (11.5-14.5) % Plt Count 252 (130-400) K/uL MPV 9.9 (7.4-10.4) fL Immature Gran % (Auto) 0.5 % Neut % (Auto) 69.5 % Lymph % (Auto) 19.8 % Perkins % (Auto) 7.8 % Eos % (Auto) 2.1 % Baso % (Auto) 0.3 % Immature Gran # (Auto) 0.05 H (0.00-0.02) K/uL Neut # (Auto) 6.40 (1.4-6.5) K/uL Lymph # (Auto) 1.82 (1.2-3.4) K/uL Perkins # (Auto) 0.72 H (0.11-0.59) K/uL Eos # (Auto) 0.19 (0-0.5) K/uL Baso # (Auto) 0.03 (0-0.2) K/uL PT 10.6 (9.0-12.0) Seconds INR 1.0 (0.9-1.1) APTT 23.9 (21.0-31.0) Seconds PTT Ratio 0.9 Sodium (136-145) mmol/L Potassium (3.5-5.1) mmol/L Chloride (98-107) mmol/L Carbon Dioxide (21-32) mmol/L Anion Gap (3-11) BUN (7-18) mg/dl Creatinine (0.6-1.2) mg/dl Est Cr Clr Drug Dosing Est GFR ( Amer) Est GFR (Non-Af Amer) BUN/Creatinine Ratio (10-20) Glucose (70-99) mg/dl Calcium (8.5-10.1) mg/dl Total Bilirubin Cancelled Direct Bilirubin Cancelled AST Cancelled ALT Cancelled Alkaline Phosphatase Cancelled Troponin I Cancelled Total Protein Cancelled Albumin Cancelled Lipase Cancelled TSH (0.300-4.500) uIu/ml Free T4 (0.8-1.6) ng/dl 04/06/19 04/06/19 Range/Units 12:50 12:50 WBC (4.8-10.8) K/uL RBC (4.2-5.4) M/uL Hgb (12.0-16.0) g/dL Hct (37-47) % MCV (80-100) fL MCH (25-34) pg MCHC (32-36) g/dL RDW Std Deviation (36.4-46.3) fL RDW Coeff of Amee (11.5-14.5) % Plt Count (130-400) K/uL MPV (7.4-10.4) fL Immature Gran % (Auto) % Neut % (Auto) % Lymph % (Auto) % Perkins % (Auto) % Eos % (Auto) % Baso % (Auto) % Immature Gran # (Auto) (0.00-0.02) K/uL Neut # (Auto) (1.4-6.5) K/uL Lymph # (Auto) (1.2-3.4) K/uL Perkins # (Auto) (0.11-0.59) K/uL Eos # (Auto) (0-0.5) K/uL Baso # (Auto) (0-0.2) K/uL PT (9.0-12.0) Seconds INR (0.9-1.1) APTT (21.0-31.0) Seconds PTT Ratio Sodium 142 (136-145) mmol/L Potassium 3.7 (3.5-5.1) mmol/L Chloride 109 H (98-107) mmol/L Carbon Dioxide 25 (21-32) mmol/L Anion Gap 8.0 (3-11) BUN 22 H (7-18) mg/dl Creatinine 1.61 H (0.6-1.2) mg/dl Est Cr Clr Drug Dosing Not Reportable Est GFR ( Amer) 39.3 Est GFR (Non-Af Amer) 33.9 BUN/Creatinine Ratio 13.8 (10-20) Glucose 130 H (70-99) mg/dl Calcium 9.2 (8.5-10.1) mg/dl Total Bilirubin 0.5 Direct Bilirubin 0.1 AST 19 ALT 26 Alkaline Phosphatase 91 Troponin I < 0.015 Total Protein 8.0 Albumin 3.0 L Lipase 166 TSH 0.025 L (0.300-4.500) uIu/ml Free T4 1.58 (0.8-1.6) ng/dl Imaging Data Radiologist's Impression: Radiology results as stated below per my review and the radiologist's interpretation: XR abdomen 2V w PA chest CLINICAL HISTORY: epigastric pain/cp pain COMPARISON STUDY: 06/12/2018 FINDINGS: Moderate stable cardiomegaly. Lungs are clear. Tracheostomy significant position. FL somewhat distended stomach. Normal nonobstructive bowel pattern. Postoperative changes right upper quadrant. IMPRESSION: 1. Moderate stable cardiomegaly.. 2. Mild gastric distention. The above report was generated using voice recognition software. It may contain grammatical, syntax or spelling errors. Electronically signed by: Neftali Trotter M.D. 04/06/2019 2:14 PM ECG Data Attestation: I personally reviewed and interpreted this ECG as follows: Indication: chest pain Rate (beats per minute): 79 Rhythm: sinus rhythm Findings: + other (AL and QTC intervals are within normal limits, QRS interval i s 144) and + RBBB; no ST depression and no ST elevation Blood Pressure Blood Pressure Findings: Normal blood pressure MDM Narrative The patient's vital signs are stable. The patient's labs and imaging are both within normal limits. The patient has a high heart score and will be admitted for chest pain. I discussed the admission plan with the patient and she was in agreement. I reviewed the patient's case with Dr. Marciano Mistry Hospitalist who will evaluate the patient for further hospitalization and admission. Impression & Plan Chest pain Discharge Plan Visit Data *Final* Discharge Date/Time: 04/06/19 16:09 Chief Complaint: Chest Pain Stated Complaint: HEART FLUTTERS - PAIN IN CHEST - REF BY DOCTOR ED Provider: Washington Diaz Discharge Problem: Chest pain Patient Disposition: Admitted As Inpatient Discharge Instructions Interventions: ED Discharge Assessment Last Done: 04/06/19 16:09 The scribe's documentation has been prepared under my direction and personally reviewed by me in its entirety. I confirm that the note above accurately reflects all work, treatment, procedures, and medical decision making performed by me.
[2019-04-06] MEDS: IPRATROPIUM BROMIDE/ALBUTEROL respimat INH INH SCH ×2 (19:16→20:27)
[2019-04-06] MEDS: ALBUT/IPRATROP 3MG/0.5MG NEB 3 ML VIAL NEB SCH ×2 (19:36→23:13)
[2019-04-06] MEDS ORDERED: ALBUTEROL 0.083% NEBU SOLN 3 ML VIAL INH SCH (20:00)
[2019-04-06] MEDS: CLOTRIMAZOLE/BETAMETHASONE CR 15 GM TUBE EXT SCH (20:28)
[2019-04-06] MEDS: HEPARIN SOD 5,000 UNIT/0.5 ML VIAL SQ SCH (20:28)
[2019-04-06] MEDS: TOPIRAMATE 100 MG TAB PO SCH (20:28)
[2019-04-06] MEDS: DOCUSATE SODIUM 100 MG CAP PO SCH (20:29)
[2019-04-06] MEDS: METOPROLOL TARTRATE 25 MG TAB PO SCH (20:29)
[2019-04-06] MEDS: TRAMADOL HCL 50 MG TABLET PO SCH (20:39)
[2019-04-07] MEDS: HEPARIN SOD 5,000 UNIT/0.5 ML VIAL SQ SCH ×3 (05:39→20:27)
[2019-04-07] MEDS: LEVOTHYROXINE SODIUM 200 MCG TABLET PO SCH (05:39)
[2019-04-07 05:42] LABS: Hematocrit (blood only) 37.1 % (37-47); Hemoglobin 11.8 g/dL (12.0-16.0); Mean Corpuscular Hgb Conc 31.8 g/dL (32-36); Mean Corpuscular Volume 89.8 fL (80-100); Mean Platelet Volume 9.8 fL (7.4-10.4); Platelet Count 245 K/uL (130-400); RDW Standard Deviation 45.9 fL (36.4-46.3); Red Blood Count 4.13 M/uL (4.2-5.4); White Blood Count 10.23 K/uL (4.8-10.8)
[2019-04-07 06:10] LABS: BUN Creatinine Ratio 13.4 (10-20); Creatinine Clr Calc Pharmacy 43.2 ml/min; Est GFR (African American) 31.6; Est GFR (Non-African American) 27.2; Potassium 3.6 mmol/L (3.5-5.1)
[2019-04-07] MEDS: ALBUT/IPRATROP 3MG/0.5MG NEB 3 ML VIAL NEB SCH ×5 (07:19→23:25)
[2019-04-07] MEDS: MULTIVITAMIN TAB PO SCH (08:57)
[2019-04-07] MEDS: LACTOBACILLUS ACIDOPHILUS (FLORANEX) TAB PO SCH ×3 (08:57→17:14)
[2019-04-07] MEDS: PANTOprazole 40 MG TAB PO SCH (08:57)
[2019-04-07] MEDS: SPIRONOLACTONE 25 MG TAB PO SCH (08:57)
[2019-04-07] MEDS: MONTELUKAST SODIUM 10 MG TABLET PO SCH (08:57)
[2019-04-07] MEDS: IPRATROPIUM BROMIDE/ALBUTEROL respimat INH INH SCH ×4 (08:58→20:26)
[2019-04-07] MEDS: TOPIRAMATE 100 MG TAB PO SCH ×2 (08:59→20:27)
[2019-04-07] MEDS: ISOSORBIDE MONO EXTENDED REL 60 MG TABCR PO SCH (08:59)
[2019-04-07] MEDS: ATORVASTATIN 20 MG TAB PO SCH (08:59)
[2019-04-07] MEDS: TORSEMIDE 10 MG TAB PO SCH ×2 (08:59→13:31)
[2019-04-07] MEDS: CLOTRIMAZOLE/BETAMETHASONE CR 15 GM TUBE EXT SCH ×2 (09:00→20:30)
[2019-04-07] MEDS: FOLIC ACID 1 MG TAB PO SCH (09:00)
[2019-04-07] MEDS: METOPROLOL TARTRATE 25 MG TAB PO SCH ×2 (09:00→20:28)
[2019-04-07] MEDS ORDERED: BuPROPion SR 100 MG TABCR PO SCH ×2 (09:00→21:00)
[2019-04-07] MEDS: DOCUSATE SODIUM 100 MG CAP PO SCH ×2 (09:00→20:29)
[2019-04-07] MEDS: ASPIRIN 81 MG ECTAB PO SCH (09:01)
[2019-04-07] MEDS: POTASSIUM CHLORIDE 20 MEQ TABCR PO SCH (09:01)
[2019-04-07] MEDS: TRAMADOL HCL 50 MG TABLET PO SCH ×2 (09:04→20:26)
--- NOTE | 2019-04-07 10:12 | Pharmacy Report ---
Glycemic Control Consultation - Date of Service April 07, 2019 - Scope Scope: Glycemic Pharmacist consulted by Fiorella Montilla on 04/06/19 for glycemic control and to write orders per [facility] inpatient glycemic control protocol - Objective Weight: 151.1 kg Accuchecks BSG (last 24hrs): 04/06/19 04/06/19 04/06/19 12:50 16:27 20:09 Glucose 130 H POC Glucose 92 98 04/07/19 04/07/19 04/07/19 05:32 05:44 07:41 Glucose 117 H POC Glucose 122 H 140 H Laboratory Data (last 24hrs): 04/06/19 04/07/19 12:50 05:32 Potassium 3.7 3.6 Carbon Dioxide 25 26 Anion Gap 8.0 8.0 Creatinine 1.61 H 1.93 H D Est Cr Clr Drug Dosing Not Reportable 43.2 - Recent Pertinent Medications Outpatient Anti-diabetic Regimen: * Humalog Pump * A1c = 6.9 % 03/27/19 - Assessment & Plan Assessment & Plan: ASSESSMENT: * Ms. Connelly is known to the glycemic service from previous admissions. She is maintained on an insulin pump. We will continue her pump barring any hypo/hyper glycemia. Diet is ordered. No steroids. PLAN FOR INPATIENT GLYCEMIC CONTROL: * Continue Humalog pump: per outpt settings * Please note that the plan above was derived based on current level of insulin resistance and hospital stress. These recommendations are appropriate for inpatient admission only. Plan of care upon discharge will need to be reassessed to avoid potential outpatient hypo/hyperglycemia. Thank you.
[2019-04-07] MEDS ORDERED: Nursing to Pharmacy Communication ONE (11:11)
--- NOTE | 2019-04-07 13:28 | Hospitalist Progress Note ---
Date of Service April 07, 2019 Assessment & Plan (1) Chest pain: Precordial pain happened to be at rest and lasted for more than an hour No radiation of the pain and no associated symptoms Initial EKG and serial troponins are unremarkable Echo: The study was technically difficult, LV size is normal, borderline concentric LVH, no wall motion abnormality, EF 55 to 60% and RV is borderline dilated Has precordial tenderness Chest pain is likely secondary to costochondritis (2) Palpitations: This is a 63-year-old female who has a significant past medical history of chronic respiratory failure with trach in place since 2007, obesity hypoventilation syndrome, COPD, RASHAAD on nocturnal 5 L O2, HTN, HLD, chronic right-sided/diastolic CHF, T2DM on insulin pump, CKD stage III, hypothyroidism, migraine, anxiety who presents to [facility] ED secondary to chest pain that began at approximately 9:30 AM on the day of admission. Reported to have palpitation last night but monitor did not show any arrhythmias and/or tachycardia Denies any more palpitations this morning (3) Chronic respiratory failure: Tracheostomy in place, O2 at bedtime No increasing shortness of breath (4) CHF (congestive heart failure): Last echocardiogram 12/2017 revealed right ventricular hypokinesis with systolic dysfunction, normal left ventricular systolic function EF 55%, grade 1 diastolic dysfunction Currently she is euvolemic Baseline weight appears to be 150 kg Continue ASA, metoprolol, Demadex, Aldactone, KCl supplement Monitor potassium Remain unremarkable (5) COPD (chronic obstructive pulmonary disease): Continue Combivent, albuterol neb, Singulair, azithromycin 3 times weekly for suppressive therapy Tracheostomy in place and O2 at bedtime No COPD exacerbation (6) Hypoventilation associated with obesity: trach in place 5L of O2 at HS encourage weight loss strategies (7) RASHAAD (obstructive sleep apnea): 5L O2 at HS (8) DM type 2 (diabetes mellitus, type 2): A1c on 03/27 6.9 Well-controlled on insulin pump Will continue insulin pump while inpatient for now (pt adamant about managing her pump given previous experience with hospitalization and insulin pump removed) (9) HTN (hypertension): Blood pressure controlled a little on the low side Outpatient regimen consist of metoprolol, Demadex, Aldactone, Imdur Monitor (10) Dyslipidemia: Continue statin Fasting lipid panel in a.m. (11) CKD (chronic kidney disease), stage III: Baseline creatinine 1.5-1.7 BUN/creatinine 22 and 1.61 today Follow BMP-creatinine increased to 1.93 (12) Migraine: Continue Topamax (13) Hypothyroid: Continue levothyroxine Obtain TSH/T4 On 03/27 patient had TSH 0.03, T4 1.83 If still abnormal may need to decrease levothyroxine (14) Tracheostomy in place: Routine trach care Has been in place since 2007 after episode of cardiopulmonary arrest (15) Morbid obesity with BMI of 60.0-69.9, adult: Encourage lifestyle modifications BMI 60.7 per last outpt visit on 03/27 (16) DVT prophylaxis: Heparin sq and SCDs Disposition: Likely discharge to home when able Follow-up: PCP Dr. Kirby upon discharge along with appropriate cardiology follow-up Subjective 04/07 The patient was seen and examined in medical telemetry unit This is a 63-year-old female who has a significant past medical history of chronic respiratory failure with trach in place since 2007, obesity hypoventilation syndrome, COPD, RASHAAD on nocturnal 5 L O2, HTN, HLD, chronic right-sided/diastolic CHF, T2DM on insulin pump, CKD stage III, hypothyroidism, migraine, anxiety who presents to [facility] ED secondary to nonexertional chest pain. Denies any chest pain this morning and did not have any arrhythmias on monitor Denies any other symptoms but has been feeling much better Review of Systems Review of Systems: All systems reviewed and are unremarkable except as noted below Respiratory: + cough and + dyspnea (Minimally shortness of breath at rest and she is status post tracheostomy in the past) Cardiovascular: no chest pain at rest Physical Exam Physical Exam: Sitting on a chair without any symptoms Constitutional: + morbidly obese; no acute distress Eyes: PERRL, conjunctivae normal, anicteric sclerae ENMT: external ear and nose normal, oropharynx normal Neck: trachea midline, no thyromegaly Respiratory: + respiratory distress (Minimal respiratory distress at rest) Auscultation: + diminished lung sounds (Bilaterally due to thick chest wall ); no crackles and no wheezes Cardiovascular: Rate/Rhythm: regular rate and regular rhythm Gastrointestinal (Abdomen): Inspection/Auscultation: abdomen normal to inspection Neurologic: PERRL, EOMI, accommodation nl, no face palsy, no dysarthria Psychiatric: A+Ox3, euthymic affect Lymphatic: no cervical or axillary lymphadenopathy Results & Data Vital Signs (Past 12 Hours) Vital Signs Temp Pulse Resp BP Pulse Ox 04/07/19 11:16 75 16 95 04/07/19 11:09 36.5 C 78 18 106/65 94 04/07/19 07:23 74 16 97 04/07/19 06:49 36.5 C 75 18 98/66 L 96 04/07/19 04:13 37 C 64 18 118/64 99 Laboratory Results Short CBC 04/07/19 Range/Units 05:32 WBC 10.23 (4.8-10.8) K/uL Hgb 11.8 L (12.0-16.0) g/dL Hct 37.1 (37-47) % Plt Count 245 (130-400) K/uL BMP 04/07/19 05:32 Sodium 142 Potassium 3.6 Chloride 109 H Carbon Dioxide 26 BUN 26 H Creatinine 1.93 H D Glucose 117 H Calcium 9.0 Cardiac Enzymes 04/06/19 04/06/19 04/07/19 Range/Units 12:50 18:04 00:19 Troponin I < 0.015 < 0.015 < 0.015 (0-0.045) ng/ml Liver Function 04/06/19 Range/Units 12:50 Total Bilirubin 0.5 (0.2-1) mg/dl Alkaline Phosphatase 91 (45-117) U/L Medications Administered Current Inpatient Medications Acetaminophen (Tylenol) 650 mg PO Q4H PRN PRN Reason: Pain or Fever Stop: 05/06/19 16:43 Al Hydrox/Mg Hydrox/Simethicone (Maalox) 15 ml PO Q4H PRN PRN Reason: Dyspepsia Stop: 05/06/19 16:43 Albuterol (Ventolin Hfa) 2 puffs INH Q4H PRN PRN Reason: Shortness Of Breath Stop: 05/06/19 16:43 Albuterol (Combivent Respimat) 1 puffs INH QID [facility] Stop: 05/06/19 16:59 Last Admin: 04/07/19 08:58 Dose: 1 puffs Documented by: Albuterol (Duoneb) 3 ml NEB Q4RWA [facility] Stop: 06/16/19 19:59 Last Admin: 04/07/19 11:15 Dose: 3 ml Documented by: Aspirin (Ecotrin Ectab) 81 mg PO DAILY [facility] Stop: 05/07/19 08:59 Last Admin: 04/07/19 09:01 Dose: 81 mg Documented by: Atorvastatin Calcium (Lipitor) 20 mg PO DAILY [facility] Stop: 05/07/19 08:59 Last Admin: 04/07/19 08:59 Dose: 20 mg Documented by: Azithromycin (Zithromax) 250 mg PO MoWeFr@0900 [facility] Stop: 05/09/19 08:59 Betamethasone/Clotrimazole (Lotrisone 1/0.5%) 1 appln EXT BID [facility] Stop: 05/06/19 20:59 Last Admin: 04/07/19 09:00 Dose: 1 appln Documented by: Bupropion HCl (Wellbutrin-Sr) 100 mg PO QD@08 [facility] Stop: 05/08/19 07:59 Bupropion HCl (Wellbutrin-Sr) 200 mg PO QPM [facility] Stop: 05/07/19 20:59 Dextrose (Dextrose 50%) 25 - 50 ml IV UD PRN; Protocol PRN Reason: Hypoglycemia Protocol Stop: 05/06/19 16:43 Dextrose (Dextrose 50%) 25 - 50 ml IV UD PRN; Protocol PRN Reason: Hypoglycemia Protocol Stop: 05/06/19 17:29 Docusate Sodium (Colace) 100 mg PO BID [facility] Stop: 05/06/19 20:59 Last Admin: 04/07/19 09:00 Dose: 100 mg Documented by: Ergocalciferol (Vitamin D2) 50,000 units PO MoWeFr@0900 [facility] Stop: 05/09/19 08:59 Folic Acid (Folvite) 1 mg PO DAILY [facility] Stop: 05/07/19 08:59 Last Admin: 04/07/19 09:00 Dose: 1 mg Documented by: Glucagon (Glucagen) 1 mg SQ UD PRN; Protocol PRN Reason: Hypoglycemia Protocol Stop: 05/06/19 16:43 Glucagon (Glucagen) 1 mg SQ UD PRN; Protocol PRN Reason: Hypoglycemia Protocol Stop: 05/06/19 17:29 Glucose (Glucose 40%) 15 - 30 gm PO UD PRN; Protocol PRN Reason: Hypoglycemia Protocol Stop: 05/06/19 16:43 Glucose (Dex4 Glucose) 4 - 8 tabs PO UD PRN; Protocol PRN Reason: Hypoglycemia Protocol Stop: 05/06/19 16:43 Glucose (Glucose 40%) 15 - 30 gm PO UD PRN; Protocol PRN Reason: Hypoglycemia Protocol Stop: 05/06/19 17:29 Glucose (Dex4 Glucose) 4 - 8 tabs PO UD PRN; Protocol PRN Reason: Hypoglycemia Protocol Stop: 05/06/19 17:29 Heparin Sodium (Porcine) (Heparin Sodium (Porcine)) 5,000 units SQ Q8 [facility] Stop: 05/06/19 21:59 Last Admin: 04/07/19 05:39 Dose: 5,000 units Documented by: Insulin Human Lispro (Humalog Insulin Pump) 1 ea N/A [facility]; Protocol Stop: 05/06/19 20:59 Last Admin: 04/07/19 11:37 Dose: 1 ea Documented by: Insulin Human Lispro (Humalog) 0 units SC PRN PRN PRN Reason: REFILL Stop: 05/06/19 17:29 Isosorbide Mononitrate (Imdur Extended Rel) 60 mg PO DAILY [facility] Stop: 05/07/19 08:59 Last Admin: 04/07/19 08:59 Dose: 60 mg Documented by: Lactobacillus Acidophilus (Floranex) 2 tab PO TIDM [facility] Stop: 05/07/19 07:59 Last Admin: 04/07/19 11:38 Dose: 2 tab Documented by: Levothyroxine Sodium (Synthroid) 300 mcg PO MoTh@0630 [facility] Stop: 05/09/19 06:29 Levothyroxine Sodium (Synthroid) 200 mcg PO SuTuWeFrSa@0630 [facility] Stop: 05/07/19 06:29 Last Admin: 04/07/19 05:39 Dose: 200 mcg Documented by: Lorazepam (Ativan) 1 mg PO Q8H PRN PRN Reason: Anxiety Stop: 05/06/19 16:43 Magnesium Hydroxide (Milk Of Magnesia) 30 ml PO Q12H PRN PRN Reason: Constipation Stop: 05/06/19 16:43 Metoprolol Tartrate (Lopressor) 12.5 mg PO BID [facility] Stop: 05/06/19 20:59 Last Admin: 04/07/19 09:00 Dose: Not Given Documented by: Miscellaneous (Carbohydrates For Hypoglycemia) 15 - 30 gm PO UD PRN PRN Reason: Hypoglycemia Treatment Stop: 05/06/19 16:43 Miscellaneous (Order Awaiting Action) 1 ea N/A DAILY [facility] Stop: 05/07/19 08:59 Last Admin: 04/07/19 09:01 Dose: Not Given Documented by: Miscellaneous (Carbohydrates For Hypoglycemia) 15 - 30 gm PO UD PRN PRN Reason: Hypoglycemia Treatment Stop: 05/06/19 17:29 Miscellaneous Information (Consult Glycemic Management Pharmacy) 1 ea N/A UD PRN; Protocol PRN Reason: Consult Stop: 05/06/19 17:27 Montelukast Sodium (Singulair) 10 mg PO DAILY [facility] Stop: 05/07/19 08:59 Last Admin: 04/07/19 08:57 Dose: 10 mg Documented by: Multivitamins (Multivitamin Tab) 1 tab PO DAILY [facility] Stop: 05/07/19 08:59 Last Admin: 04/07/19 08:57 Dose: 1 tab Documented by: Nitroglycerin (Nitrostat) 0.4 mg SL UD PRN PRN Reason: Chest Pain Stop: 05/06/19 16:43 Last Admin: 04/06/19 21:34 Dose: 0.4 mg Documented by: Ondansetron HCl (Zofran) 4 mg IV Q6H PRN PRN Reason: Nausea Stop: 05/06/19 16:43 Pantoprazole Sodium (Protonix) 40 mg PO DAILY [facility] Stop: 05/07/19 08:59 Last Admin: 04/07/19 08:57 Dose: 40 mg Documented by: Polyethylene Glycol (Miralax Powder Packet) 17 gm PO DAILY PRN PRN Reason: Constipation Stop: 05/06/19 16:43 Potassium Chloride (Klor-Con M20) 20 meq PO DAILY [facility] Stop: 05/07/19 08:59 Last Admin: 04/07/19 09:01 Dose: 20 meq Documented by: Spironolactone (Aldactone) 25 mg PO DAILY [facility] Stop: 05/07/19 08:59 Last Admin: 04/07/19 08:57 Dose: 25 mg Documented by: Topiramate (Topamax) 100 mg PO QAM [facility] Stop: 05/07/19 08:59 Last Admin: 04/07/19 08:59 Dose: 100 mg Documented by: Topiramate (Topamax) 200 mg PO HS [facility] Stop: 05/06/19 20:59 Last Admin: 04/06/19 20:28 Dose: 200 mg Documented by: Torsemide (Demadex) 20 mg PO 0900,1400 [facility] Stop: 05/07/19 13:59 Tramadol HCl (Ultram) 50 mg PO BID [facility] Stop: 05/06/19 20:59 Last Admin: 04/07/19 09:04 Dose: 50 mg Documented by:
--- NOTE | 2019-04-07 21:14 | Consultation Report ---
DATE OF CONSULTATION: 04/07/2019 CARDIOLOGY CONSULTATION REFERRING PHYSICIAN: Dr. Pat. INDICATIONS: Palpitations, chest pain. HISTORY OF PRESENT ILLNESS: The patient is a complex 63-year-old female whose past medical history is notable for morbid obesity with sleep apnea, severe obstructive lung disease with chronic indwelling tracheostomy since 2007, past respiratory arrest, hypertension, type 2 diabetes mellitus, chronic right bundle branch block, past IVC filter implantation. The patient presents this admission noting an episode of palpitations at home and heart pounding, feeling flushed and "not as well as she should have." Notes no fevers or chills. Did describe a low grade chest pressure pain on presentation, which was eased with 4 baby aspirin, did not spontaneously resolve for several hours. She noted no melena, hematochezia, dysuria or hematuria. There was chest wall tenderness on initial presentation to palpation. Symptoms were not exacerbated by ambulation. She notes no productive cough. Notes no headache or visual changes. Notes no rash or arthritic complaint. Has been taking medications as prescribed. REVIEW OF SYSTEMS: As per HPI and otherwise. ALLERGIES: AMITRIPTYLINE, GABAPENTIN, METFORMIN, PENICILLIN, SUDAFED AND TETRACYCLINE. MEDICATIONS: Prior to hospitalization were listed as acetaminophen; albuterol inhaler q.i.d.; aspirin 81 mg per day; atorvastatin 20 mg p.o. daily; azithromycin 250 Tuesday, Tuesday, Tuesday; bupropion 300 mg p.o. daily; Clarinex 5 mg p.o. daily; docusate; vitamin D; insulin; isosorbide mononitrate 60 mg per day; levothyroxine 200 mcg, Tuesday, Tuesday, Tuesday, Tuesday, and Tuesday and 300 mcg Tuesday and ; metoprolol tartrate 12.5 mg b.i.d.; lorazepam 1 mg q. 8 hours p.r.n.; Singulair 10 mg p.o. daily; multivitamin per day; pantoprazole 40 mg per day; potassium chloride 20 mEq p.o. daily; spironolactone 25 mg p.o. daily; Topamax 100 mg daily 200 at bedtime; torsemide 20 mg b.i.d.; and Tramadol 50 mg b.i.d. PAST SURGICAL HISTORY: Notable for prior appendectomy, cholecystectomy, tonsillectomy, IVC filter, hysterectomy and tracheotomy in 2008. FAMILY HISTORY: Notable for heart disease and obstructive lung disease in mother. SOCIAL HISTORY: The patient is a nonsmoker, nondrinker. PHYSICAL EXAMINATION: GENERAL: The patient is an obese, age-appropriate female. VITAL SIGNS: Heart rate is 84, blood pressure is 114/69, O2 saturation is currently 94%. HEENT: Normocephalic, atraumatic. Nares without discharge. NECK: Notable for indwelling tracheostomy. Patient speaks by occluding device without difficulty. LUNGS: Reveal diminished breath sounds but are predominantly clear. CARDIOVASCULAR: Regular with distant heart sounds. There is no audible murmur, gallop or rub. PMI is nondisplaced. ABDOMEN: Soft, obese with large panniculus. EXTREMITIES: Without cyanosis or clubbing. There is trace pedal edema only with intact distal pulses. There is no palpable cord or Homans sign. DATA: Chest x-ray reveals no infiltrate or edema. Abdominal x-ray revealed mild gastric distention. LABORATORY STUDIES: Since admission demonstrated a white cell count of 10.2, hemoglobin 11.8, platelet count of 245. Triglycerides are 300. Cholesterol is 94. The HDL 29, LDL 5. Sodium is 142, potassium 3.6, chloride is 109, bicarbonate is 26, BUN is increased to 26 and creatinine is 1.9, glucose is 117. TSH was 0.25. IMPRESSION: Complex 63-year-old female with chronic obstructive lung disease, morbid obesity with indwelling tracheostomy, presents now with symptoms of palpitations and atypical chest discomfort present on palpations. Initial EKGs have been reviewed, studies demonstrate sinus rhythm with right bundle branch block and are unchanged significant from prior studies. Review of rhythms reveals no arrhythmias. Of note, in review of rhythms from ER there was crossover from the patient on her telemetry recording from patient and ultimate room transiently. This is for documentation purposes only. The patient currently is asymptomatic without arrhythmia break. No signs of acute ischemia by enzymes or EKGs. We will follow closely in the hospital. Only item of note is worsening renal insufficiency transiently. We will review echocardiogram further and assess as clinical course progresses. MTDD
[2019-04-08] MEDS: HEPARIN SOD 5,000 UNIT/0.5 ML VIAL SQ SCH (06:19)
[2019-04-08] MEDS: LEVOTHYROXINE SODIUM 200 MCG TABLET PO SCH (06:19)
[2019-04-08 06:36] LABS: BUN Creatinine Ratio 16.1 (10-20); Calcium 8.5 mg/dl (8.5-10.1); Creatinine Clr Calc Pharmacy 49.6 ml/min; Est GFR (African American) 37.9; Est GFR (Non-African American) 32.7; Magnesium 2.2 mg/dl (1.8-2.4); Potassium 3.4 mmol/L (3.5-5.1)
[2019-04-08] MEDS: ALBUT/IPRATROP 3MG/0.5MG NEB 3 ML VIAL NEB SCH ×2 (07:37→11:19)
[2019-04-08] MEDS ORDERED: BuPROPion SR 100 MG TABCR PO SCH (08:00)
[2019-04-08] MEDS: MULTIVITAMIN TAB PO SCH (08:17)
[2019-04-08] MEDS: ATORVASTATIN 20 MG TAB PO SCH (08:17)
[2019-04-08] MEDS: LACTOBACILLUS ACIDOPHILUS (FLORANEX) TAB PO SCH (08:17)
[2019-04-08] MEDS: PANTOprazole 40 MG TAB PO SCH (08:17)
[2019-04-08] MEDS: METOPROLOL TARTRATE 25 MG TAB PO SCH (08:17)
[2019-04-08] MEDS: ASPIRIN 81 MG ECTAB PO SCH (08:18)
[2019-04-08] MEDS: TORSEMIDE 10 MG TAB PO SCH (08:18)
[2019-04-08] MEDS: ISOSORBIDE MONO EXTENDED REL 60 MG TABCR PO SCH (08:18)
[2019-04-08] MEDS: POTASSIUM CHLORIDE 20 MEQ TABCR PO SCH (08:19)
[2019-04-08] MEDS: DOCUSATE SODIUM 100 MG CAP PO SCH (08:19)
[2019-04-08] MEDS: MONTELUKAST SODIUM 10 MG TABLET PO SCH (08:19)
[2019-04-08] MEDS: IPRATROPIUM BROMIDE/ALBUTEROL respimat INH INH SCH (08:20)
[2019-04-08] MEDS: FOLIC ACID 1 MG TAB PO SCH (08:20)
[2019-04-08] MEDS: SPIRONOLACTONE 25 MG TAB PO SCH (08:20)
[2019-04-08] MEDS: TOPIRAMATE 100 MG TAB PO SCH (08:20)
[2019-04-08] MEDS: CLOTRIMAZOLE/BETAMETHASONE CR 15 GM TUBE EXT SCH (08:20)
[2019-04-08] MEDS ORDERED: POTASSIUM CHLORIDE 20 MEQ TABCR PO STA (08:22)
[2019-04-08] MEDS: TRAMADOL HCL 50 MG TABLET PO SCH (08:26)
--- NOTE | 2019-04-08 10:47 | Hospitalist Progress Note ---
Date of Service April 08, 2019 Assessment & Plan (1) Chest pain: Precordial pain happened to be at rest and lasted for more than an hour No radiation of the pain and no associated symptoms Initial EKG and serial troponins are unremarkable Echo: The study was technically difficult, LV size is normal, borderline concentric LVH, no wall motion abnormality, EF 55 to 60% and RV is borderline dilated Has precordial tenderness Chest pain is likely secondary to costochondritis Appreciate cardiology input and recommendation No more chest pain and/or palpitation Monitor is showing sinus rhythm or any arrhythmias Will be discharged home this afternoon (2) Palpitations: This is a 63-year-old female who has a significant past medical history of chronic respiratory failure with trach in place since 2007, obesity hypoventilation syndrome, COPD, RASHAAD on nocturnal 5 L O2, HTN, HLD, chronic right-sided/diastolic CHF, T2DM on insulin pump, CKD stage III, hypothyroidism, migraine, anxiety who presents to [facility] ED secondary to chest pain that began at approximately 9:30 AM on the day of admission. Reported to have palpitation last night but monitor did not show any arrhythmias and/or tachycardia Denies any more palpitations this morning (3) Chronic respiratory failure: Tracheostomy in place, O2 at bedtime No increasing shortness of breath No increasing shortness of breath (4) CHF (congestive heart failure): Last echocardiogram 12/2017 revealed right ventricular hypokinesis with systolic dysfunction, normal left ventricular systolic function EF 55%, grade 1 diastolic dysfunction Currently she is euvolemic Baseline weight appears to be 150 kg Continue ASA, metoprolol, Demadex, Aldactone, KCl supplement Monitor potassium Remain unremarkable Chest x-ray is not showing any fluid overload or CHF (5) COPD (chronic obstructive pulmonary disease): Continue Combivent, albuterol neb, Singulair, azithromycin 3 times weekly for suppressive therapy Tracheostomy in place and O2 at bedtime No COPD exacerbation (6) Hypoventilation associated with obesity: trach in place 5L of O2 at HS encourage weight loss strategies (7) RASHAAD (obstructive sleep apnea): 5L O2 at HS (8) DM type 2 (diabetes mellitus, type 2): A1c on 03/27 6.9 Well-controlled on insulin pump Will continue insulin pump while inpatient for now (pt adamant about managing her pump given previous experience with hospitalization and insulin pump removed) (9) HTN (hypertension): Blood pressure controlled a little on the low side Outpatient regimen consist of metoprolol, Demadex, Aldactone, Imdur Monitor (10) Dyslipidemia: Continue statin Fasting lipid panel in a.m. (11) CKD (chronic kidney disease), stage III: Baseline creatinine 1.5-1.7 BUN/creatinine 22 and 1.61 today Follow BMP-creatinine increased to 1.93 Creatinine has improved to her baseline at 1.6 (12) Migraine: Continue Topamax (13) Hypothyroid: Continue levothyroxine Obtain TSH/T4 On 03/27 patient had TSH 0.03, T4 1.83 If still abnormal may need to decrease levothyroxine (14) Tracheostomy in place: Routine trach care Has been in place since 2007 after episode of cardiopulmonary arrest (15) Morbid obesity with BMI of 60.0-69.9, adult: Encourage lifestyle modifications BMI 60.7 per last outpt visit on 03/27 (16) DVT prophylaxis: Heparin sq and SCDs Disposition: Likely discharge to home when able Follow-up: PCP Dr. Kirby upon discharge along with appropriate cardiology follow-up Will be discharged home this afternoon Subjective 04/07 The patient was seen and examined in medical telemetry unit This is a 63-year-old female who has a significant past medical history of chronic respiratory failure with trach in place since 2007, obesity hypoventilation syndrome, COPD, RASHAAD on nocturnal 5 L O2, HTN, HLD, chronic right-sided/diastolic CHF, T2DM on insulin pump, CKD stage III, hypothyroidism, migraine, anxiety who presents to [facility] ED secondary to nonexertional chest pain. Denies any chest pain this morning and did not have any arrhythmias on monitor Denies any other symptoms but has been feeling much better 04/08 The patient was seen and examined in medical telemetry unit She denies any complaints today No more chest pain and/or palpitation Denies any abdominal pain nausea or vomiting has been ambulating well in the room with walker She has to go home today Review of Systems Respiratory: + cough; no dyspnea and no dyspnea on exertion Cardiovascular: no chest pain, no palpitations and no edema Physical Exam Physical Exam: Sitting in a chair without any symptoms Constitutional: well developed and + morbidly obese; no acute distress Eyes: PERRL, conjunctivae normal, anicteric sclerae ENMT: external ear and nose normal, oropharynx normal Neck: trachea midline, no thyromegaly Respiratory: no respiratory distress Auscultation: + diminished lung sounds (Bilaterally due to thick chest wall ); no crackles and no wheezes Cardiovascular: Rate/Rhythm: regular rate and regular rhythm Extremities: + edema (Trace edema bilateral) Gastrointestinal (Abdomen): Inspection/Auscultation: abdomen normal to inspection, + abdomen distended and normal bowel sounds Percussion/Palpation: abdomen nontender, no guarding and abdomen not rigid Neurologic: PERRL, EOMI, accommodation nl, no face palsy, no dysarthria Psychiatric: A+Ox3, euthymic affect Lymphatic: no cervical or axillary lymphadenopathy Results & Data Vital Signs (Past 12 Hours) Vital Signs Temp Pulse Pulse Resp BP Pulse Ox 04/08/19 08:00 75 04/08/19 07:40 77 18 93 04/08/19 07:12 36.6 C 75 18 120/69 95 04/08/19 04:12 36.6 C 76 18 106/53 L 94 04/07/19 23:51 36.8 C 87 18 90/51 L 94 04/07/19 23:25 86 82 18 95 Laboratory Results [facility] 04/08/19 05:39 Sodium 141 Potassium 3.4 L Chloride 109 H Carbon Dioxide 28 BUN 27 H Creatinine 1.66 H Glucose 111 H Calcium 8.5 Medications Administered Current Inpatient Medications Acetaminophen (Tylenol) 650 mg PO Q4H PRN PRN Reason: Pain or Fever Stop: 05/06/19 16:43 Al Hydrox/Mg Hydrox/Simethicone (Maalox) 15 ml PO Q4H PRN PRN Reason: Dyspepsia Stop: 05/06/19 16:43 Albuterol (Ventolin Hfa) 2 puffs INH Q4H PRN PRN Reason: Shortness Of Breath Stop: 05/06/19 16:43 Albuterol (Combivent Respimat) 1 puffs INH QID [facility] Stop: 05/06/19 16:59 Last Admin: 04/08/19 08:20 Dose: 1 puffs Documented by: Albuterol (Duoneb) 3 ml NEB Q4RWA ASIYA Stop: 05/06/19 19:59 Last Admin: 04/08/19 07:37 Dose: 3 ml Documented by: Aspirin (Ecotrin Ectab) 81 mg PO DAILY [facility] Stop: 05/07/19 08:59 Last Admin: 04/08/19 08:18 Dose: 81 mg Documented by: Atorvastatin Calcium (Lipitor) 20 mg PO DAILY ASIYA Stop: 05/07/19 08:59 Last Admin: 04/08/19 08:17 Dose: 20 mg Documented by: Azithromycin (Zithromax) 250 mg PO MoWeFr@0900 [facility] Stop: 05/09/19 08:59 Betamethasone/Clotrimazole (Lotrisone 1/0.5%) 1 appln EXT BID ASIYA Stop: 05/06/19 20:59 Last Admin: 04/08/19 08:20 Dose: 1 appln Documented by: Bupropion HCl (Wellbutrin-Sr) 100 mg PO QD@08 [facility] Stop: 05/08/19 07:59 Last Admin: 04/08/19 08:18 Dose: 100 mg Documented by: Bupropion HCl (Wellbutrin-Sr) 200 mg PO QPM ASIYA Stop: 05/07/19 20:59 Last Admin: 04/07/19 20:30 Dose: 200 mg Documented by: Dextrose (Dextrose 50%) 25 - 50 ml IV UD PRN; Protocol PRN Reason: Hypoglycemia Protocol Stop: 05/06/19 16:43 Dextrose (Dextrose 50%) 25 - 50 ml IV UD PRN; Protocol PRN Reason: Hypoglycemia Protocol Stop: 05/06/19 17:29 Docusate Sodium (Colace) 100 mg PO BID [facility] Stop: 05/06/19 20:59 Last Admin: 04/08/19 08:19 Dose: 100 mg Documented by: Ergocalciferol (Vitamin D2) 50,000 units PO MoWeFr@0900 ASIYA Stop: 05/09/19 08:59 Folic Acid (Folvite) 1 mg PO DAILY ASIYA Stop: 05/07/19 08:59 Last Admin: 04/08/19 08:20 Dose: 1 mg Documented by: Glucagon (Glucagen) 1 mg SQ UD PRN; Protocol PRN Reason: Hypoglycemia Protocol Stop: 05/06/19 16:43 Glucagon (Glucagen) 1 mg SQ UD PRN; Protocol PRN Reason: Hypoglycemia Protocol Stop: 05/06/19 17:29 Glucose (Glucose 40%) 15 - 30 gm PO UD PRN; Protocol PRN Reason: Hypoglycemia Protocol Stop: 05/06/19 16:43 Glucose (Dex4 Glucose) 4 - 8 tabs PO UD PRN; Protocol PRN Reason: Hypoglycemia Protocol Stop: 05/06/19 16:43 Glucose (Glucose 40%) 15 - 30 gm PO UD PRN; Protocol PRN Reason: Hypoglycemia Protocol Stop: 05/06/19 17:29 Glucose (Dex4 Glucose) 4 - 8 tabs PO UD PRN; Protocol PRN Reason: Hypoglycemia Protocol Stop: 05/06/19 17:29 Heparin Sodium (Porcine) (Heparin Sodium (Porcine)) 5,000 units SQ Q8 [facility] Stop: 05/06/19 21:59 Last Admin: 04/08/19 06:19 Dose: 5,000 units Documented by: Insulin Human Lispro (Humalog Insulin Pump) 1 ea N/A ACHS [facility]; Protocol Stop: 05/06/19 20:59 Last Admin: 04/08/19 08:17 Dose: Not Given Documented by: Insulin Human Lispro (Humalog) 0 units SC PRN PRN PRN Reason: REFILL Stop: 05/06/19 17:29 Isosorbide Mononitrate (Imdur Extended Rel) 60 mg PO DAILY [facility] Stop: 05/07/19 08:59 Last Admin: 04/08/19 08:18 Dose: 60 mg Documented by: Lactobacillus Acidophilus (Floranex) 2 tab PO TIDM [facility] Stop: 05/07/19 07:59 Last Admin: 04/08/19 08:17 Dose: 2 tab Documented by: Levothyroxine Sodium (Synthroid) 300 mcg PO MoTh@0630 [facility] Stop: 05/09/19 06:29 Levothyroxine Sodium (Synthroid) 200 mcg PO SuTuWeFrSa@0630 [facility] Stop: 05/07/19 06:29 Last Admin: 04/08/19 06:19 Dose: 200 mcg Documented by: Lorazepam (Ativan) 1 mg PO Q8H PRN PRN Reason: Anxiety Stop: 05/06/19 16:43 Magnesium Hydroxide (Milk Of Magnesia) 30 ml PO Q12H PRN PRN Reason: Constipation Stop: 05/06/19 16:43 Metoprolol Tartrate (Lopressor) 12.5 mg PO BID [facility] Stop: 05/06/19 20:59 Last Admin: 04/08/19 08:17 Dose: 12.5 mg Documented by: Miscellaneous (Carbohydrates For Hypoglycemia) 15 - 30 gm PO UD PRN PRN Reason: Hypoglycemia Treatment Stop: 05/06/19 16:43 Miscellaneous (Order Awaiting Action) 1 ea N/A DAILY ASIYA Stop: 05/07/19 08:59 Last Admin: 04/08/19 08:19 Dose: Not Given Documented by: Miscellaneous (Carbohydrates For Hypoglycemia) 15 - 30 gm PO UD PRN PRN Reason: Hypoglycemia Treatment Stop: 05/06/19 17:29 Miscellaneous Information (Consult Glycemic Management Pharmacy) 1 ea N/A UD PRN; Protocol PRN Reason: Consult Stop: 05/06/19 17:27 Montelukast Sodium (Singulair) 10 mg PO DAILY [facility] Stop: 05/07/19 08:59 Last Admin: 04/08/19 08:19 Dose: 10 mg Documented by: Multivitamins (Multivitamin Tab) 1 tab PO DAILY ASIYA Stop: 05/07/19 08:59 Last Admin: 04/08/19 08:17 Dose: 1 tab Documented by: Nitroglycerin (Nitrostat) 0.4 mg SL UD PRN PRN Reason: Chest Pain Stop: 05/06/19 16:43 Last Admin: 04/06/19 21:34 Dose: 0.4 mg Documented by: Ondansetron HCl (Zofran) 4 mg IV Q6H PRN PRN Reason: Nausea Stop: 05/06/19 16:43 Pantoprazole Sodium (Protonix) 40 mg PO DAILY ASIYA Stop: 05/07/19 08:59 Last Admin: 04/08/19 08:17 Dose: 40 mg Documented by: Polyethylene Glycol (Miralax Powder Packet) 17 gm PO DAILY PRN PRN Reason: Constipation Stop: 05/06/19 16:43 Potassium Chloride (Klor-Con M20) 20 meq PO DAILY ASIYA Stop: 05/07/19 08:59 Last Admin: 04/08/19 08:19 Dose: 20 meq Documented by: Spironolactone (Aldactone) 25 mg PO DAILY ASIYA Stop: 05/07/19 08:59 Last Admin: 04/08/19 08:20 Dose: 25 mg Documented by: Topiramate (Topamax) 100 mg PO QAM ASIYA Stop: 05/07/19 08:59 Last Admin: 04/08/19 08:20 Dose: 100 mg Documented by: Topiramate (Topamax) 200 mg PO HS ASIYA Stop: 05/06/19 20:59 Last Admin: 04/07/19 20:27 Dose: 200 mg Documented by: Torsemide (Demadex) 20 mg PO 0900,1400 ASIYA Stop: 05/07/19 13:59 Last Admin: 04/08/19 08:18 Dose: 20 mg Documented by: Tramadol HCl (Ultram) 50 mg PO BID ASIYA Stop: 05/06/19 20:59 Last Admin: 04/08/19 08:26 Dose: 50 mg Documented by:
[2019-04-09] MEDS ORDERED: LEVOTHYROXINE SODIUM 100 MCG TABLET PO SCH (06:30)
--- NOTE | 2019-04-09 08:14 | Hospitalist Progress Note ---
Date of Service April 08, 2019 Assessment & Plan (1) Chest pain: Precordial pain happened to be at rest and lasted for more than an hour No radiation of the pain and no associated symptoms Initial EKG and serial troponins are unremarkable Echo: The study was technically difficult, LV size is normal, borderline concentric LVH, no wall motion abnormality, EF 55 to 60% and RV is borderline dilated Has precordial tenderness Chest pain is likely secondary to costochondritis Appreciate cardiology input and recommendation No more chest pain and/or palpitation Monitor is showing sinus rhythm or any arrhythmias Remains stable Will be discharged home this afternoon (2) Palpitations: This is a 63-year-old female who has a significant past medical history of chronic respiratory failure with trach in place since 2007, obesity hypoventilation syndrome, COPD, RASHAAD on nocturnal 5 L O2, HTN, HLD, chronic right-sided/diastolic CHF, T2DM on insulin pump, CKD stage III, hypothyroidism, migraine, anxiety who presents to [facility] ED secondary to chest pain that began at approximately 9:30 AM on the day of admission. Reported to have palpitation last night but monitor did not show any arrhythmias and/or tachycardia Denies any more palpitations this morning (3) Chronic respiratory failure: Tracheostomy in place, O2 at bedtime No increasing shortness of breath No increasing shortness of breath Continue current dose of home oxygen (4) CHF (congestive heart failure): Last echocardiogram 12/2017 revealed right ventricular hypokinesis with systolic dysfunction, normal left ventricular systolic function EF 55%, grade 1 diastolic dysfunction Currently she is euvolemic Baseline weight appears to be 150 kg Continue ASA, metoprolol, Demadex, Aldactone, KCl supplement Monitor potassium Remain unremarkable Chest x-ray is not showing any fluid overload or CHF (5) COPD (chronic obstructive pulmonary disease): Continue Combivent, albuterol neb, Singulair, azithromycin 3 times weekly for suppressive therapy Tracheostomy in place and O2 at bedtime No COPD exacerbation (6) Hypoventilation associated with obesity: trach in place 5L of O2 at HS encourage weight loss strategies (7) RASHAAD (obstructive sleep apnea): 5L O2 at HS (8) DM type 2 (diabetes mellitus, type 2): A1c on 03/27 6.9 Well-controlled on insulin pump Will continue insulin pump while inpatient for now (pt adamant about managing her pump given previous experience with hospitalization and insulin pump removed) (9) HTN (hypertension): Blood pressure controlled a little on the low side Outpatient regimen consist of metoprolol, Demadex, Aldactone, Imdur Monitor (10) Dyslipidemia: Continue statin Fasting lipid panel in a.m. (11) CKD (chronic kidney disease), stage III: Baseline creatinine 1.5-1.7 BUN/creatinine 22 and 1.61 today Follow BMP-creatinine increased to 1.93 Creatinine has improved to her baseline at 1.6 (12) Migraine: Continue Topamax (13) Hypothyroid: Continue levothyroxine Obtain TSH/T4 On 03/27 patient had TSH 0.03, T4 1.83 If still abnormal may need to decrease levothyroxine (14) Tracheostomy in place: Routine trach care Has been in place since 2007 after episode of cardiopulmonary arrest (15) Morbid obesity with BMI of 60.0-69.9, adult: Encourage lifestyle modifications BMI 60.7 per last outpt visit on 03/27 (16) DVT prophylaxis: Heparin sq and SCDs Disposition: Likely discharge to home when able Follow-up: PCP Dr. Kirby upon discharge along with appropriate cardiology follow-up Will be discharged home this afternoon Subjective 04/07 The patient was seen and examined in medical telemetry unit This is a 63-year-old female who has a significant past medical history of chronic respiratory failure with trach in place since 2007, obesity hypoventilation syndrome, COPD, RASHAAD on nocturnal 5 L O2, HTN, HLD, chronic right-sided/diastolic CHF, T2DM on insulin pump, CKD stage III, hypothyroidism, migraine, anxiety who presents to [facility] ED secondary to nonexertional chest pain. Denies any chest pain this morning and did not have any arrhythmias on monitor Denies any other symptoms but has been feeling much better 04/08 Patient is seen and examined the medical telemetry unit She has been feeling a lot better since admission hence she denies to have any chest pain No shortness of breath at rest Wants to go home Review of Systems Review of Systems: All systems reviewed and are unremarkable except as noted below Respiratory: no cough and no dyspnea Cardiovascular: no chest pain, no chest pain at rest and no dyspnea Physical Exam Physical Exam: Sitting in a chair without any symptoms Constitutional: well developed and + morbidly obese; no acute distress Eyes: PERRL, conjunctivae normal, anicteric sclerae ENMT: external ear and nose normal, oropharynx normal Neck: trachea midline, no thyromegaly Respiratory: no respiratory distress Auscultation: + diminished lung sounds (Bilaterally due to thick chest wall ); no crackles and no wheezes Cardiovascular: Rate/Rhythm: regular rate and regular rhythm Extremities: + edema (Trace edema bilateral) Gastrointestinal (Abdomen): Inspection/Auscultation: abdomen normal to inspection, + abdomen distended and normal bowel sounds Percussion/Palpation: abdomen nontender, no guarding and abdomen not rigid Neurologic: PERRL, EOMI, accommodation nl, no face palsy, no dysarthria Psychiatric: A+Ox3, euthymic affect Lymphatic: no cervical or axillary lymphadenopathy Results & Data Vital Signs (Past 12 Hours) Vital Signs Temp Pulse Pulse Resp BP Pulse Ox 04/08/19 11:19 79 16 93 04/08/19 08:00 75 04/08/19 07:40 77 18 93 04/08/19 07:12 36.6 C 75 18 120/69 95 04/08/19 04:12 36.6 C 76 18 106/53 L 94 04/07/19 23:51 36.8 C 87 18 90/51 L 94
--- NOTE | 2019-04-09 08:16 | Discharge Summary ---
Date of Service April 09, 2019 Admission HPI Per Admitting Provider This is a 63-year-old female who has a significant past medical history of chronic respiratory failure with trach in place since 2007, obesity hypoventilation syndrome, COPD, RASHAAD on nocturnal 5 L O2, HTN, HLD, chronic rig ht-sided/diastolic CHF, T2DM on insulin pump, CKD stage III, hypothyroidism, migraine, anxiety who presents to [facility] ED secondary to chest pain that began at approximately 9:30 AM. Daughter is at bedside. Pain was left-sided, constant, started abruptly with patient at rest, associated with tingling to left upper extremity and nausea, described as, 'something sitting on my chest." Denies any recent injury. Symptoms were not worse with change in position, leaning forward, coughing or taking deep breaths. Symptoms are rated as a 7 out of 10 initially. During ED improved to 4/10 secondary to 4 baby ASA. Has never had anything like this in the past. She also had 4 intermittent episodes of, "fluttering in my chest," that lasted for a few seconds before resolving. Daughter called into cardiology nurse who recommended patient seek ED evaluation. Given patient's morbid obesity she ambulates with walker. She denies any chest pain or dyspnea on exertion recently with activity. She denies any recent illness, fever, chills, sweats, lightheadedness, dizziness, syncope, shortness of breath at rest or with exertion, cough, hemoptysis, emesis, abdominal pain, dysuria, increased urgency or frequency with urination, hematuria. She does elicit to having loose bowels this morning and last evening. Her appetite has been normal and she denies any increase or decrease in weight. Denies any john swelling. She does have excoriations to left upper extremity and bilateral lower extremities. 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 Chest pain was not worsened with food. Patient denies history of cardiac catheterization or coronary intervention in past. She has had a history of stress test but cannot remember when. While in ED chest pain did improve to a 4/10 with administration of 4 baby aspirin. Her initial troponin was normal and EKG was unchanged from prior tracings. Her CBC was relatively unremarkable. BMP compatible with CKD with BUN 22 and creatinine of 1.61, glucose 130. Her LFTs and lipase were WNL. Chest x-ray and KUB revealed moderate stable cardiomegaly with mild gastric distention. Admission Exam Per Admitting Provider Physical Exam: Sitting on a chair without any symptoms Constitutional: + morbidly obese; no acute distress Eyes: PERRL, conjunctivae normal, anicteric sclerae ENMT: external ear and nose normal, oropharynx normal Neck: trachea midline, no thyromegaly Respiratory: + respiratory distress (Minimal respiratory distress at rest) Auscultation: + diminished lung sounds (Bilaterally due to thick chest wall ); no crackles and no wheezes Cardiovascular: Rate/Rhythm: regular rate and regular rhythm Gastrointestinal (Abdomen): Inspection/Auscultation: abdomen normal to inspection Neurologic: PERRL, EOMI, accommodation nl, no face palsy, no dysarthria Psychiatric: A+Ox3, euthymic affect Lymphatic: no cervical or axillary lymphadenopathy Principal Diagnosis Chest pain likely secondary to costochondritis, no ACS and unremarkable echocardiogram, stable CHF and COPD, diabetes on insulin pump Discharge Exam Constitutional well developed and + morbidly obese; no acute distress Eyes PERRL, conjunctivae normal, anicteric sclerae ENMT external ear and nose normal, oropharynx normal Neck trachea midline, no thyromegaly Respiratory no respiratory distress Auscultation: + diminished lung sounds (Bilaterally due to thick chest wall ); no crackles and no wheezes Cardiovascular Rate/Rhythm: regular rate and regular rhythm Extremities: + edema (Trace edema bilateral) Gastrointestinal (Abdomen) Inspection/Auscultation: abdomen normal to inspection, + abdomen distended and normal bowel sounds Percussion/Palpation: abdomen nontender, no guarding and abdomen not rigid Neurologic PERRL, EOMI, accommodation nl, no face palsy, no dysarthria Psychiatric A+Ox3, euthymic affect Lymphatic no cervical or axillary lymphadenopathy Discharge Data Allergies Allergy/AdvReac Type Severity Reaction Status Date / Time amitriptyline Allergy Unknown ` Verified 04/06/19 13:41 gabapentin Allergy Unknown ` Verified 04/06/19 13:41 metformin Allergy Unknown ` Verified 04/06/19 13:41 Penicillins Allergy Unknown ` Verified 04/06/19 13:41 pseudoephedrine Allergy Unknown ` Verified 04/06/19 13:41 tetracycline Allergy Unknown ` Verified 04/06/19 13:41 Consultations 04/06/19 14:33 ED Decision to Admit Stat 04/06/19 16:44 Consult Cardiology Routine Consult Case Management - Discharge Planning Routine Hospital Course (1) Chest pain: Precordial pain happened to be at rest and lasted for more than an hour No radiation of the pain and no associated symptoms Initial EKG and serial troponins are unremarkable Echo: The study was technically difficult, LV size is normal, borderline concentric LVH, no wall motion abnormality, EF 55 to 60% and RV is borderline dilated Has precordial tenderness Chest pain is likely secondary to costochondritis Appreciate cardiology input and recommendation No more chest pain and/or palpitation Monitor is showing sinus rhythm or any arrhythmias Remains stable Will be discharged home this afternoon (2) Palpitations: This is a 63-year-old female who has a significant past medical history of chronic respiratory failure with trach in place since 2007, obesity hypoventilation syndrome, COPD, RASHAAD on nocturnal 5 L O2, HTN, HLD, chronic right-sided/diastolic CHF, T2DM on insulin pump, CKD stage III, hypothyroidism, migraine, anxiety who presents to [facility] ED secondary to chest pain that began at approximately 9:30 AM on the day of admission. Reported to have palpitation last night but monitor did not show any arrhythmias and/or tachycardia Denies any more palpitations this morning (3) Chronic respiratory failure: Tracheostomy in place, O2 at bedtime No increasing shortness of breath No increasing shortness of breath Continue current dose of home oxygen (4) CHF (congestive heart failure): Last echocardiogram 12/2017 revealed right ventricular hypokinesis with systolic dysfunction, normal left ventricular systolic function EF 55%, grade 1 diastolic dysfunction Currently she is euvolemic Baseline weight appears to be 150 kg Continue ASA, metoprolol, Demadex, Aldactone, KCl supplement Monitor potassium Remain unremarkable Chest x-ray is not showing any fluid overload or CHF (5) COPD (chronic obstructive pulmonary disease): Continue Combivent, albuterol neb, Singulair, azithromycin 3 times weekly for suppressive therapy Tracheostomy in place and O2 at bedtime No COPD exacerbation (6) Hypoventilation associated with obesity: trach in place 5L of O2 at HS encourage weight loss strategies (7) RASHAAD (obstructive sleep apnea): 5L O2 at HS (8) DM type 2 (diabetes mellitus, type 2): A1c on 03/27 6.9 Well-controlled on insulin pump Will continue insulin pump while inpatient for now (pt adamant about managing her pump given previous experience with hospitalization and insulin pump removed) (9) HTN (hypertension): Blood pressure controlled a little on the low side Outpatient regimen consist of metoprolol, Demadex, Aldactone, Imdur Monitor (10) Dyslipidemia: Continue statin Fasting lipid panel in a.m. (11) CKD (chronic kidney disease), stage III: Baseline creatinine 1.5-1.7 BUN/creatinine 22 and 1.61 today Follow BMP-creatinine increased to 1.93 Creatinine has improved to her baseline at 1.6 (12) Migraine: Continue Topamax (13) Hypothyroid: Continue levothyroxine Obtain TSH/T4 On 03/27 patient had TSH 0.03, T4 1.83 If still abnormal may need to decrease levothyroxine (14) Tracheostomy in place: Routine trach care Has been in place since 2007 after episode of cardiopulmonary arrest (15) Morbid obesity with BMI of 60.0-69.9, adult: Encourage lifestyle modifications BMI 60.7 per last outpt visit on 03/27 (16) DVT prophylaxis: Heparin sq and SCDs Disposition: Likely discharge to home when able Follow-up: PCP Dr. Kirby upon discharge along with appropriate cardiology follow-up Will be discharged home this afternoon Total Time Total Time Spent Total Time Spent (In Minutes): 35 minutes Total Time Includes: Examination of the Patient, Discharge Planning, Medication Reconciliation and Communication With Other Providers Discharge Plan Discharge Items Patient Disposition: Home - Self-Care Reason For Visit: CHEST PAIN Discharge Diagnosis: Chest pain likely secondary to costochondritis, no ACS and unremarkable echocardiogram, stable CHF and COPD, diabetes on insulin pump Condition: Good Discharge Goals: Decrease discomfort, Improve function and Increase independence Activity: Resume your previous activity Non-emergency contact: Primary Care Provider Call non-emergency contact if: you have any medication questions and your symptoms worsen Follow-up/Referrals: Rowan Leos DO [Primary Care Provider] - (Your PCPs office will call with an appointment) Diet: Carb Consistent or DM2 and Heart Healthy Fluids: 1800ml (7 cups) Addtl Provider Instructions: Please take precaution to avoid fall, use oxygen as directed Prescriptions: Continued atorvastatin 20 mg Tablet 20 mg PO DAILY RF: 0 albuterol sulfate 2.5 mg /3 mL (0.083 %) Solution For Nebulization 2.5 mg INHALATION QID RF: 0 azithromycin 250 mg Tablet 250 mg PO MOWEFR RF: 0 aspirin [Aspirin Low Dose] 81 mg Tablet,Delayed Release (Dr/Ec) 81 mg PO DAILY RF: 0 docusate sodium [Col-Rite] 100 mg capsule 100 mg PO BID RF: 0 albuterol sulfate [ProAir HFA] 90 mcg/actuation HFA aerosol inhaler 2 puff inhalation Q4H PRN (Reason: Shortness Of Breath) RF: 0 acidophilus-pectin, citrus [Acidophilus Probiotic] 100 million cell-10 mg Capsule 1 cap PO DAILY RF: 0 Combivent Respimat 20-100 mcg/actuation Mist 1 puff INHALATION QID RF: 0 bupropion HCl 100 mg Tablet Sustained-Release 12 Hr 300 mg PO DAILY RF: 0 desloratadine [Clarinex] 5 mg Tablet 5 mg PO DAILY RF: 0 clotrimazole-betamethasone [Lotrisone] 1-0.05 % Cream 1 applic TOPICAL BID RF: 0 betamethasone dipropionate 0.05 % cream 1 applic topical DIRECTED RF: 0 docusate sodium 100 mg Capsule 100 mg PO BID RF: 0 folic acid 1 mg Tablet 1 mg PO DAILY RF: 0 clotrimazole 1 % Cream 1 applic TOPICAL DIRECTED RF: 0 Humalog U-100 Insulin 100 unit/mL Cartridge 400 unit continuous subcutaneous infusion DIRECTED RF: 0 multivitamin Tablet 1 tab PO DAILY RF: 0 torsemide 10 mg Tablet 20 mg PO BID RF: 0 tramadol 50 mg Tablet 50 mg PO BID RF: 0 acetaminophen [Tylenol Extra Strength] 500 mg Tablet 500 mg PO Q6H PRN (Reason: Pain) RF: 0 spironolactone 25 mg Tablet 25 mg PO DAILY RF: 0 isosorbide mononitrate 60 mg Tablet Extended Release 24 Hr 60 mg PO DAILY RF: 0 pantoprazole 40 mg Tablet,Delayed Release (Dr/Ec) 40 mg PO DAILY RF: 0 montelukast 10 mg Tablet 10 mg PO DAILY RF: 0 levothyroxine 200 mcg Tablet 200 mcg PO SUTUWEFRSA RF: 0 levothyroxine 200 mcg Tablet 300 mcg PO MOTH RF: 0 ergocalciferol (vitamin D2) [Vitamin D2] 50,000 unit Capsule 50,000 unit PO MOWEFR RF: 0 lorazepam 1 mg Tablet 1 mg PO Q8H PRN (Reason: Anxiety) RF: 0 ketoconazole 2 % Cream 1 applic TOPICAL BID RF: 0 topiramate 100 mg Tablet 100 mg PO DAILY RF: 0 topiramate 100 mg Tablet 200 mg PO HS RF: 0 metoprolol tartrate 25 mg Tablet 12.5 mg PO BID RF: 0 potassium chloride 20 mEq Tablet Extended Release 20 meq PO DAILY RF: 0 Stand-Alone Forms: Call Back Authorization, [facility] Discharge Orders: Discharge Order (Routine); Ordered 04/08/19 Ordered By: Jhony Pat Admission Data Admit Date/Time: 04/06/19 15:29 Attending Provider: Jhony Pat Admit Provider: Jhony Pat Primary Care Provider: Rowan Leos Other Providers: Jhony Pat ; Surya Mendoza Service: Telemetry Other Interventions: Discharge Summary Assessment (RN) Last Done: 04/08/19 11:59 DC Date/Time DO NOT enter until pt leaves facility: 04/08/19 12:39
[2019-04-09] MEDS ORDERED: AZITHROMYCIN 250 MG TAB PO SCH (09:00)
[2019-04-09] MEDS ORDERED: ERGOCALCIFEROL 50,000 UNITS CAP PO SCH (09:00)
== END 2019-04-08 12:39 | disposition home or self-care (01) ==
LOC: ED 12:27 → 2N 12:27

== ENCOUNTER 2019-10-14 11:39 | Inpatient (IN) ==
[2019-10-14] MEDS ORDERED: cefTRIAXone SODIUM 2,000 MG/70 ML BAG IV STA (12:17)
[2019-10-14] MEDS ORDERED: ALBUTEROL 0.083% NEBU SOLN 3 ML VIAL NEB STA (12:24)
[2019-10-14 12:40] LABS: Basophils # (auto) 0.03 K/uL (0-0.2); Basophils % (auto) 0.2 %; Eosinophils # (auto) 0.02 K/uL (0-0.5); Eosinophils % (auto) 0.1 %; Hematocrit (blood only) 38.3 % (37-47); Hemoglobin 12.3 g/dL (12.0-16.0); Immature Granulocytes % (auto) 0.5 %; Lymphocytes # (auto) 1.27 K/uL (1.2-3.4); Lymphocytes % (auto) 6.6 %; Mean Corpuscular Hemoglobin 29.1 pg (25-34); Mean Corpuscular Hgb Conc 32.1 g/dL (32-36); Mean Corpuscular Volume 90.8 fL (80-100); Mean Platelet Volume 10.1 fL (7.4-10.4); Monocytes # (auto) 0.92 K/uL (0.11-0.59); Monocytes % (auto) 4.7 %; Neutrophils # (auto) 17.04 K/uL (1.4-6.5); Neutrophils % (auto) 87.9 %; Platelet Count 244 K/uL (130-400); RDW Coefficient of Variation 14.3 % (11.5-14.5); RDW Standard Deviation 47.9 fL (36.4-46.3); Red Blood Count 4.22 M/uL (4.2-5.4); White Blood Count 19.38 K/uL (4.8-10.8)
[2019-10-14 12:47] LABS: Alanine Aminotransferase 20 U/L (12-78); Albumin Level 2.9 gm/dl (3.4-5.0); Aspartate Aminotransferase 14 U/L (15-37); BUN Creatinine Ratio 16.2 (10-20); Blood Urea Nitrogen 27 mg/dl (7-18); Carbon Dioxide 23 mmol/L (21-32); Chloride 109 mmol/L (98-107); Est GFR (African American) 37.9; Est GFR (Non-African American) 32.7; Glucose 189 mg/dl (70-99); Potassium 3.9 mmol/L (3.5-5.1); Sodium 140 mmol/L (136-145)
[2019-10-14 12:50] LABS: Albumin Globulin Ratio 0.6 (0.9-2); Alkaline Phosphatase 89 U/L (45-117); Bilirubin,Total 0.6 mg/dl (0.2-1); Globulin 4.7 gm/dl (2.5-4.0); Partial Thromboplastin Ratio 0.9; Partial Thromboplastin Time 24.5 Seconds (21.0-31.0); Prothrombin Time 10.6 Seconds (9.0-12.0); Total Protein 7.6 gm/dl (6.4-8.2)
--- NOTE | 2019-10-14 13:38 | XRay Report ---
XR chest 1V portable CLINICAL HISTORY: Sepsis dyspnea COMPARISON STUDY: 04/06/2019 FINDINGS: Stable cardiomegaly. Mild increase in pulmonary vasculature compared to the prior study. Tr acheostomy tube in good position. IMPRESSION: Cardiomegaly. Developing pulmonary venous congestion. The above report was generated using voice recognition software. It may contain grammatical, syntax or spelling errors. Electronically signed by: Neftali Trotter M.D. 10/14/2019 1:36 PM
--- NOTE | 2019-10-14 14:17 | Emergency Department Note ---
Entered by Jane Nair acting as a scribe for History of Present Illness General Chief complaint: Infection Stated complaint: ams Source: patient and family (daughters) History of Present Illness Onset (ago): hour(s) (today) Location: head Pain Consistency: + other (persistent ) Quality: + other (altered mental status) Associated symptoms: + cough and + other (negative abdominal pain; positive not talking; positive jerking movements) Treatments prior to arrival: other (Bactrim) The patient is a 64 year old female with a PMHx of CHF, COPD, HTN, Hypothyroidism,Type 2 diabetes, and CKD who presents to the Emergency Room with complaints of persistent altered mental status that began this morning, per the patient's daughters. The paitent's daughters state that the patient has not been acting herself and has not been talking. Per the patient's daughters, the patient was talking and acting at her baseline yesterday. The patient's daughters state that the patient has had a cough for over one week now and state the the patient finished Bactrim yesterday that she was prescribed for her cough. The patient's family states that the patient's cough was not relieved by the antibiotics. Per the patient's daughters, the patient has had a tracheostomy since having bacterial pneumonia. The patient's family that the patient has had jerking movements during this time. The patient denies abdominal pain, and states that she does not know if she is having urinary symptoms. The patient's daughters state that the patient takes an aspirin everyday. Home Medications Home Medications Medication Instructions Recorded Confirmed Type Combivent Respimat 1 puff INHALATION QID 04/06/19 10/14/19 History Humalog U-100 Insulin 400 unit CONTINUOUS SUBCUTANEOUS 04/06/19 10/14/19 History INFUSION DIRECTED acetaminophen [Tylenol Extra 500 mg PO Q6H PRN 04/06/19 10/14/19 History Strength] acidophilus-pectin, citrus 1 cap PO QAM 04/06/19 10/14/19 History [Acidophilus Probiotic] albuterol sulfate 2.5 mg INHALATION QID 04/06/19 10/14/19 History albuterol sulfate [ProAir HFA] 2 puff INHALATION Q4H PRN 04/06/19 10/14/19 History aspirin [Aspirin Low Dose] 81 mg PO QAM 04/06/19 10/14/19 History atorvastatin 20 mg PO HS 04/06/19 10/14/19 History azithromycin 250 mg PO MOWEFR 04/06/19 10/14/19 History betamethasone dipropionate 1 applic TOPICAL BID 04/06/19 10/14/19 History bupropion HCl 100 mg PO QAM 04/06/19 10/14/19 History clotrimazole 1 applic TOPICAL BID 04/06/19 10/14/19 History clotrimazole-betamethasone 1 applic TOPICAL BID 04/06/19 10/14/19 History [Lotrisone] desloratadine [Clarinex] 5 mg PO HS 04/06/19 10/14/19 History docusate sodium 100 mg PO BID 04/06/19 10/14/19 History folic acid 1 mg PO QAM 04/06/19 10/14/19 History isosorbide mononitrate 60 mg PO QAM 04/06/19 10/14/19 History ketoconazole 1 applic TOPICAL BID 04/06/19 10/14/19 History lorazepam 1 mg PO Q8H PRN 04/06/19 10/14/19 History metoprolol tartrate 12.5 mg PO BID 04/06/19 10/14/19 History multivitamin 1 tab PO QAM 04/06/19 10/14/19 History pantoprazole 40 mg PO QAM 04/06/19 10/14/19 History potassium chloride 20 meq PO QAM 04/06/19 10/14/19 History spironolactone 25 mg PO QAM 04/06/19 10/14/19 History topiramate 100 mg PO QAM 04/06/19 10/14/19 History topiramate 200 mg PO HS 04/06/19 10/14/19 History Oxygen Home #1 ea 06/28/19 08/30/19 History ipratropium-albuterol 0.5 mg-3 3 ml INHALATION Q4H #3 ml 06/28/19 10/14/19 History mg(2.5 mg base)/3 mL nebulization soln nitroglycerin 0.4 mg sublingual 0.4 mg SL UD tab 06/28/19 10/14/19 History tablet levothyroxine 175 mcg capsule 175 mcg PO QAM 08/30/19 10/14/19 History sulfamethoxazole 800 1 tab PO Q12H #20 tab 10/02/19 10/14/19 Rx mg-trimethoprim 160 mg tablet bupropion HCl 200 mg PO HS 10/14/19 10/14/19 History torsemide 20 mg PO BID 10/14/19 10/14/19 History Allergies Allergy/AdvReac Type Severity Reaction Status Date / Time amitriptyline Allergy Unknown ` Verified 10/14/19 13:59 gabapentin Allergy Unknown ` Verified 10/14/19 13:59 guaifenesin Allergy Unknown Unknown Verified 10/14/19 13:59 metformin Allergy Unknown ` Verified 10/14/19 13:59 Penicillins Allergy Unknown ` Verified 10/14/19 13:59 phenylephrine Allergy Unknown Unknown Verified 10/14/19 13:59 pseudoephedrine Allergy Unknown ` Verified 10/14/19 13:59 tetracycline Allergy Unknown ` Verified 10/14/19 13:59 doxycycline Allergy Unknown Verified 10/14/19 13:59 venlafaxine [From Effexor] Allergy Unknown Verified 10/14/19 13:59 Past Med/Surg History Medical History Anxiety (Chronic) Bronchiectasis (Chronic) CHF (congestive heart failure) (Chronic) Chronic respiratory failure (Chronic) CKD (chronic kidney disease), stage III (Chronic) COPD (chronic obstructive pulmonary disease) (Chronic) DM type 2 (diabetes mellitus, type 2) (Chronic) Dyslipidemia (Chronic) HTN (hypertension) (Chronic) Hypothyroid (Chronic) Hypoventilation associated with obesity (Chronic) Migraine (Chronic) MRSA (methicillin resistant staph aureus) culture positive (Chronic) "sputum 11/2015" Right ventricular dysfunction (Chronic) Sepsis (Resolved) Tracheostomy in place (Chronic) Surgical History History of appendectomy (Chronic) History of cholecystectomy (Chronic) History of hysterectomy (Chronic) History of tonsillectomy and adenoidectomy (Chronic) S/P IVC filter (Chronic) Family History Mother Coronary heart disease COPD (chronic obstructive pulmonary disease) Social History Preferred Language: Turkish Communication Ability: Effective Booth Usher Required: No Beliefs That Will Affect Care: None Current Living Situation: Family Current Living Situation Comment: Lives with Daughter Feels Safe at Home: Yes Smoking Status: Never smoker Hx Alcohol Use: No Hx Substance Use: No Review of Systems See HPI for pertinent positives & negatives. and A total of 10 systems reviewed and were otherwise negative Physical Exam Vital Signs Vital Signs - 24 hr 10/14/19 11:39 10/14/19 11:57 10/14/19 12:01 Temperature 37.6 C H Temperature Source Oral Pulse Rate 93 H 90 90 Pulse Rate [Right Apical] 90 Pulse Rate from SpO2 Sensor 91 H 90 Pulse Rhythm Regular Pulse Strength Normal Respiratory Rate 20 30 H 30 H Respiratory Effort / Characteristics Non-Labored Spontaneous Blood Pressure 121/77 134/81 Blood Pressure Mean 91 96 Blood Pressure Position Lying Pulse Oximetry 94 96 95 Oxygen Delivery Method Room Air Sepsis Recent Fever Within 48 Hours Yes Sepsis New/Unexplained Change in Mental Status No Sepsis Action Taken by Nursing Physician Notified 10/14/19 12:15 10/14/19 12:29 10/14/19 12:30 Temperature Temperature Source Pulse Rate 89 90 Pulse Rate [Right Apical] 90 Pulse Rate from SpO2 Sensor 88 91 H Pulse Rhythm Pulse Strength Respiratory Rate 27 H 20 21 Respiratory Effort / Characteristics Non-Labored Spontaneous Blood Pressure Blood Pressure Mean Blood Pressure Position Pulse Oximetry 94 94 98 Oxygen Delivery Method Room Air Sepsis Recent Fever Within 48 Hours Sepsis New/Unexplained Change in Mental Status Sepsis Action Taken by Nursing 10/14/19 12:45 10/14/19 13:00 10/14/19 13:15 Temperature Temperature Source Pulse Rate 89 87 88 Pulse Rate [Right Apical] Pulse Rate from SpO2 Sensor 88 87 87 Pulse Rhythm Pulse Strength Respiratory Rate 24 27 H 26 H Respiratory Effort / Characteristics Blood Pressure Blood Pressure Mean Blood Pressure Position Pulse Oximetry 98 99 98 Oxygen Delivery Method Sepsis Recent Fever Within 48 Hours Sepsis New/Unexplained Change in Mental Status Sepsis Action Taken by Nursing 10/14/19 13:30 10/14/19 13:45 10/14/19 14:00 Temperature Temperature Source Pulse Rate Pulse Rate [Right Apical] Pulse Rate from SpO2 Sensor 85 87 89 Pulse Rhythm Pulse Strength Respiratory Rate 22 24 22 Respiratory Effort / Characteristics Blood Pressure Blood Pressure Mean Blood Pressure Position Pulse Oximetry 99 98 99 Oxygen Delivery Method Sepsis Recent Fever Within 48 Hours Sepsis New/Unexplained Change in Mental Status Sepsis Action Taken by Nursing 10/14/19 14:15 10/14/19 14:26 10/14/19 14:30 Temperature Temperature Source Pulse Rate Pulse Rate [Right Apical] Pulse Rate from SpO2 Sensor 86 84 84 Pulse Rhythm Pulse Strength Respiratory Rate 22 Respiratory Effort / Characteristics Blood Pressure 110/70 110/70 Blood Pressure Mean 83 82 Blood Pressure Position Pulse Oximetry 98 100 98 Oxygen Delivery Method Sepsis Recent Fever Within 48 Hours Sepsis New/Unexplained Change in Mental Status Sepsis Action Taken by Nursing 10/14/19 14:39 10/14/19 14:45 Temperature Temperature Source Pulse Rate Pulse Rate [Right Apical] Pulse Rate from SpO2 Sensor 86 87 Pulse Rhythm Pulse Strength Respiratory Rate Respiratory Effort / Characteristics Blood Pressure Blood Pressure Mean 57 Blood Pressure Position Pulse Oximetry 99 99 Oxygen Delivery Method Sepsis Recent Fever Within 48 Hours Sepsis New/Unexplained Change in Mental Status Sepsis Action Taken by Nursing GENERAL: Morbidly obese. Sitting up in bed, intermittently twitching, in mild distress. EYE EXAM: normal conjunctiva PERRL and EOM's grossly intact OROPHARYNX: no exudate, no erythema, lips, buccal mucosa, and tongue normal and mucous membranes are moist NECK: supple, no nuchal rigidity, no adenopathy, non-tender LUNGS: Distant. Clear to auscultation. Normal chest wall mechanics HEART: Distant. No murmurs, S1 normal and S2 normal ABDOMEN: abdomen soft, non-tender, normo-active bowel sounds, no masses, no rebound or guarding. BACK: Back is symmetrical on inspection and there is no deformity, no midline tenderness, no CVA tenderness. SKIN: no rashes and no bruising UPPER EXTREMITIES: upper extremities are grossly normal. LOWER EXTREMITIES: No pitting edema. Erythema and tenderness along the right proximal thigh. NEURO EXAM: Awake, alert, and oriented to person and place but not year. Intermittently responding to questions but confused. Nonfocal. Course Course ED COURSE: Vital signs were reviewed and showed hypertension. The patients medical record was reviewed The above diagnostic studies were performed and reviewed. ED treatments and interventions as stated above. 1209: The patient was evaluated in room B6. A complete history and physical examination was performed. 1347: The patient is unable to lay flat for CT as she is unable to breathe. 1356: Upon reevaluation, the patient is resting comfortably. I discussed my findings with the patient and she understands and agrees with the treatment plan. Based on the patients age, coexisting illnesses, exam and lab findings the decision to treat as an inpatient was made. The patient remained stable while under my care. 1421: The patient will be evaluated for further management under Dr. Anabell Mistry Hospitalist service. Administered Medications Discontinued Medications Albuterol (Ventolin 0.083% 2.5mg/3ml) 2.5 mg NEB NOW STA Stop: 10/14/19 12:25 Last Admin: 10/14/19 12:29 Dose: 2.5 mg Documented by: [id number] Ceftriaxone Sodium (Rocephin) 2,000 mg in 70 mls @ 140 mls/hr IV NOW STA Stop: 10/14/19 12:46 Last Infusion: 10/14/19 14:32 Dose: 0 mls/hr Documented by: [id number] Admin: 10/14/19 14:02 Dose: 140 mls/hr Documented by: [id number] Medical Decision Making Differential Diagnosis Differential diagnoses includes but is not limited to toxic, metabolic, infectious, traumatic, cardiac, neurologic, hematologic, psychiatric and inf lammatory etiologies. Medical Records Attestation: I reviewed the patient's medical records. Home Medications Current Medication List: was personally reviewed by me Laboratory Data Attestation: I reviewed the patient's lab results. Result diagrams: 10/14/19 11:46 10/14/19 11:46 Lab Results 10/14/19 10/14/19 10/14/19 Range/Units 11:46 11:46 11:46 WBC 19.38 H (4.8-10.8) K/uL RBC 4.22 (4.2-5.4) M/uL Hgb 12.3 (12.0-16.0) g/dL Hct 38.3 (37-47) % MCV 90.8 (80-100) fL MCH 29.1 (25-34) pg MCHC 32.1 (32-36) g/dL RDW Std Deviation 47.9 H (36.4-46.3) fL RDW Coeff of Amee 14.3 (11.5-14.5) % Plt Count 244 (130-400) K/uL MPV 10.1 (7.4-10.4) fL Immature Gran % (Auto) 0.5 % Neut % (Auto) 87.9 % Lymph % (Auto) 6.6 % [place] % (Auto) 4.7 % Eos % (Auto) 0.1 % Baso % (Auto) 0.2 % Immature Gran # (Auto) 0.10 H (0.00-0.02) K/uL Neut # (Auto) 17.04 H (1.4-6.5) K/uL Lymph # (Auto) 1.27 (1.2-3.4) K/uL [place] # (Auto) 0.92 H (0.11-0.59) K/uL Eos # (Auto) 0.02 (0-0.5) K/uL Baso # (Auto) 0.03 (0-0.2) K/uL PT 10.6 (9.0-12.0) Seconds INR 1.0 (0.9-1.1) APTT 24.5 (21.0-31.0) Seconds PTT Ratio 0.9 VBG pH (7.36-7.41) VBG pCO2 (38-50) mmHg VBG pO2 mmHg VBG HCO3 mmol/L VBG O2 Saturation % VBG Base Excess mEq/L Barometric Pressure mm/Hg Sodium 140 (136-145) mmol/L Potassium 3.9 (3.5-5.1) mmol/L Chloride 109 H (98-107) mmol/L Carbon Dioxide 23 (21-32) mmol/L Anion Gap 8.0 (3-11) BUN 27 H (7-18) mg/dl Creatinine 1.65 H (0.6-1.2) mg/dl Est Cr Clr Drug Dosing Not Reportable Est GFR ( Amer) 37.9 Est GFR (Non-Af Amer) 32.7 BUN/Creatinine Ratio 16.2 (10-20) Glucose 189 H (70-99) mg/dl Lactate (0.4-2.0) mmol/L Calcium 9.0 (8.5-10.1) mg/dl Total Bilirubin 0.6 (0.2-1) mg/dl AST 14 L (15-37) U/L ALT 20 (12-78) U/L Alkaline Phosphatase 89 (45-117) U/L Total Protein 7.6 (6.4-8.2) gm/dl Albumin 2.9 L (3.4-5.0) gm/dl Globulin 4.7 H (2.5-4.0) gm/dl Albumin/Globulin Ratio 0.6 L (0.9-2) Urine Color Urine Appearance (Clear) Urine pH (4.5-7.5) Ur Specific [place] (1.000-1.030) Urine Protein (Negative) Urine Glucose (UA) (Negative) Urine Ketones (Negative) Urine Blood (Negative) Urine Nitrite (Negative) Urine Bilirubin (Negative) Urine Urobilinogen (Negative) Ur Leukocyte Esterase (Negative) 10/14/19 10/14/19 10/14/19 Range/Units 12:51 14:06 14:33 WBC (4.8-10.8) K/uL RBC (4.2-5.4) M/uL Hgb (12.0-16.0) g/dL Hct (37-47) % MCV (80-100) fL MCH (25-34) pg MCHC (32-36) g/dL RDW Std Deviation (36.4-46.3) fL RDW Coeff of Amee (11.5-14.5) % Plt Count (130-400) K/uL MPV (7.4-10.4) fL Immature Gran % (Auto) % Neut % (Auto) % Lymph % (Auto) % [place] % (Auto) % Eos % (Auto) % Baso % (Auto) % Immature Gran # (Auto) (0.00-0.02) K/uL Neut # (Auto) (1.4-6.5) K/uL Lymph # (Auto) (1.2-3.4) K/uL [place] # (Auto) (0.11-0.59) K/uL Eos # (Auto) (0-0.5) K/uL Baso # (Auto) (0-0.2) K/uL PT (9.0-12.0) Seconds INR (0.9-1.1) APTT (21.0-31.0) Seconds PTT Ratio VBG pH 7.36 (7.36-7.41) VBG pCO2 49 (38-50) mmHg VBG pO2 62 mmHg VBG HCO3 27 mmol/L VBG O2 Saturation < 60.0 % VBG Base Excess 0.8 mEq/L Barometric Pressure 721.1 mm/Hg Sodium (136-145) mmol/L Potassium (3.5-5.1) mmol/L Chloride (98-107) mmol/L Carbon Dioxide (21-32) mmol/L Anion Gap (3-11) BUN (7-18) mg/dl Creatinine (0.6-1.2) mg/dl Est Cr Clr Drug Dosing Est GFR ( Amer) Est GFR (Non-Af Amer) BUN/Creatinine Ratio (10-20) Glucose (70-99) mg/dl Lactate 1.7 (0.4-2.0) mmol/L Calcium (8.5-10.1) mg/dl Total Bilirubin (0.2-1) mg/dl AST (15-37) U/L ALT (12-78) U/L Alkaline Phosphatase (45-117) U/L Total Protein (6.4-8.2) gm/dl Albumin (3.4-5.0) gm/dl Globulin (2.5-4.0) gm/dl Albumin/Globulin Ratio (0.9-2) Urine Color Yellow Urine Appearance Clear (Clear) Urine pH 7.0 (4.5-7.5) Ur Specific [place] 1.020 (1.000-1.030) Urine Protein Negative (Negative) Urine Glucose (UA) Negative (Negative) Urine Ketones Negative (Negative) Urine Blood Negative (Negative) Urine Nitrite Negative (Negative) Urine Bilirubin Negative (Negative) Urine Urobilinogen Negative (Negative) Ur Leukocyte Esterase Negative (Negative) Imaging Data Radiologist's Impression: Radiology results as stated below per my review and the radiologist's interpretation: XR chest 1V portable CLINICAL HISTORY: Sepsis dyspnea COMPARISON STUDY: 04/06/2019 FINDINGS: Stable cardiomegaly. Mild increase in pulmonary vasculature compared to the prior study. Tracheostomy tube in good position. IMPRESSION: Cardiomegaly. Developing pulmonary venous congestion. The above report was generated using voice recognition software. It may contain grammatical, syntax or spelling errors. Electronically signed by: Neftali Trotter M.D. 10/14/2019 1:36 PM ECG Data Attestation: I personally reviewed and interpreted this ECG as follows: Indication: + altered mental status Rate (beats per minute): 91 Rhythm: + sinus rhythm ECG Intervals/blocks: + First degree AV block and + Right Bundle branch block ECG Palmer: + Left axis deviation ECG ST segments: + T-wave inversions (septal and anterior ) ECG Findings: no PVCs Comparison ECG Date: from (04/08/19) Change: no significant change Blood Pressure Blood Pressure Findings: Elevated blood pressure Blood Pressure Disposition: elevated BP felt to be situational MDM Narrative The patient is a 64 year old female with a PMHx of CHF, morbid obesity, trach dependent, COPD, HTN, Hypothyroidism,Type 2 diabetes, and CKD who presents the ER for weakness and confusion associated with a cough. On exam patient has an erythema of the right mid groin which is tender to palpation. Uncertain of when this last occurred but is at least new from this past Tuesday. Low-grade fevers at home. Currently on 5 L at night. Patient was brought in by EMS on nonrebreather. IV was established blood work was obtained. Labs show a leukocytosis of 19,000 which is significantly elevated from previous with a baseline around 10. No significant anemia. INR was unremarkable. BMP with a creatinine of 1.6 which is consistent with her baseline. Glucose was elevated at 190. LFTs bilirubin was unremarkable. No belly pain on exam. Straight cath UA was obtained and was unremarkable. VBG was unremarkable. Unable to obtain CT of the head as patient cannot lay flat and normally turns blue per family. There is no reported falls and patient has no focal deficit but is confused and I do consequently believe this to be more infectious in nature and is likely consistent with the cellulitis in combination with a viral URI as on my review of the chest x-ray there is no focal infiltrate. EKG was also nondiagnostic. Patient and family were updated bedside. Discussed with the hospitalist. Patient was given a dose of IV Rocephin and IV fluids. She was also given a neb treatment. Impression & Plan Cellulitis, Leukocytosis, Morbid obesity, URI (upper respiratory infection) Discharge Plan Visit Data Chief Complaint: Infection Stated Complaint: ams ED Provider: Patrick Barrera Discharge Problem: Cellulitis, Leukocytosis, Morbid obesity, URI (upper respiratory infection) Patient Disposition: Being Evaluated by Hospitalist Forms Stand Alone Forms: [facility] Prescriptions Prescriptions: No Action sulfamethoxazole-trimethoprim 800-160 mg tablet 1 tab PO Q12H Qty: 20 RF: 0 nitroglycerin 0.4 mg tablet, sublingual 0.4 mg SL UD RF: 0 (DME) Oxygen Home Liters Per Minute See Dose Instructions .ROUTE .MEDSUPPLY Qty: 1 RF: 0 ipratropium-albuterol 0.5 mg-3 mg(2.5 mg base)/3 mL solution for nebulization 3 ml inhalation Q4H Qty: 3 RF: 0 levothyroxine 175 mcg capsule 175 mcg PO QAM RF: 0 atorvastatin 20 mg Tablet 20 mg PO HS RF: 0 albuterol sulfate 2.5 mg /3 mL (0.083 %) Solution For Nebulization 2.5 mg INHALATION QID RF: 0 azithromycin 250 mg Tablet 250 mg PO MOWEFR RF: 0 aspirin [Aspirin Low Dose] 81 mg Tablet,Delayed Release (Dr/Ec) 81 mg PO QAM RF: 0 albuterol sulfate [ProAir HFA] 90 mcg/actuation HFA aerosol inhaler 2 puff inhalation Q4H PRN (Reason: Shortness Of Breath) RF: 0 acidophilus-pectin, citrus [Acidophilus Probiotic] 100 million cell-10 mg Capsule 1 cap PO QAM RF: 0 Combivent Respimat 20-100 mcg/actuation Mist 1 puff INHALATION QID RF: 0 bupropion HCl 100 mg Tablet Sustained-Release 12 Hr 100 mg PO QAM RF: 0 desloratadine [Clarinex] 5 mg Tablet 5 mg PO HS RF: 0 clotrimazole-betamethasone [Lotrisone] 1-0.05 % Cream 1 applic TOPICAL BID RF: 0 betamethasone dipropionate 0.05 % cream 1 applic topical BID RF: 0 docusate sodium 100 mg Capsule 100 mg PO BID RF: 0 folic acid 1 mg Tablet 1 mg PO QAM RF: 0 clotrimazole 1 % Cream 1 applic TOPICAL BID RF: 0 Humalog U-100 Insulin 100 unit/mL Cartridge 400 unit continuous subcutaneous infusion DIRECTED RF: 0 multivitamin Tablet 1 tab PO QAM RF: 0 acetaminophen [Tylenol Extra Strength] 500 mg Tablet 500 mg PO Q6H PRN (Reason: Pain) RF: 0 spironolactone 25 mg Tablet 25 mg PO QAM RF: 0 isosorbide mononitrate 60 mg Tablet Extended Release 24 Hr 60 mg PO QAM RF: 0 pantoprazole 40 mg Tablet,Delayed Release (Dr/Ec) 40 mg PO QAM RF: 0 lorazepam 1 mg Tablet 1 mg PO Q8H PRN (Reason: Anxiety) RF: 0 ketoconazole 2 % Cream 1 applic TOPICAL BID RF: 0 topiramate 100 mg Tablet 100 mg PO QAM RF: 0 topiramate 100 mg Tablet 200 mg PO HS RF: 0 metoprolol tartrate 25 mg Tablet 12.5 mg PO BID RF: 0 potassium chloride 20 mEq Tablet Extended Release 20 meq PO QAM RF: 0 bupropion HCl 100 mg tablet sustained-release 12 hr 200 mg PO HS RF: 0 torsemide 20 mg tablet 20 mg PO BID RF: 0 Referrals Referrals: Rowan Leos DO [Primary Care Provider] - Discharge Problem: Cellulitis Qualifiers: Site of cellulitis: extremity Site of cellulitis of extremity: lower extremity Laterality: right Qualified Code(s): L03.115 - Cellulitis of right lower limb Leukocytosis Qualifiers: Leukocytosis type: unspecified Qualified Code(s): D72.829 - Elevated white blood cell count, unspecified URI (upper respiratory infection) Qualifiers: URI type: unspecified URI Qualified Code(s): J06.9 - Acute upper respiratory infection, unspecified The scribe's documentation has been prepared under my direction and personally reviewed by me in its entirety. I confirm that the note above accurately reflects all work, treatment, procedures, and medical decision making performed by me.
[2019-10-14 14:33] LABS: Appearance Urine Clear (Clear); Bilirubin Urine Negative (Negative); Blood Urine Negative (Negative); Color Urine Yellow; Glucose Urine UA Negative (Negative); Ketones Urine Negative (Negative); Leukocyte Esterase Urine Negative (Negative); Nitrite Urine Negative (Negative); Protein Urine Negative (Negative); Urobilinogen Urine Negative (Negative)
--- NOTE | 2019-10-14 14:36 | History & Physical Report ---
Date of Service October 14, 2019 Assessment & Plan (1) Cellulitis: Right lower extremity cellulitis Acute Bronchitis Possible Sepsis Normal lactate levels CXR, UA--not suggestive of infection Blood cultures obtained Started on cefepime Gentle IV fluids Pulmonary hygiene Altered mental status Likely secondary to metabolic encephalopathy's due to infection CT head could not be obtained as patient could not lay flat for CT Grossly no focal neurological deficits No hypercarbia or hyperammonemia Neuro checks Aspiration, fall precautions Chronic respiratory failure with hypoxia Obesity hypoventilation syndrome COPD Continue supplemental oxygen--on 5 liters at baseline Continue Home inhalers, Nebs Pulm Hygiene Hypertension Stable Continue home medications Hyperlipidemia Continue statin DM II--insulin-dependent On insulin pump Glycemic pharmacy consulted CKD III Cr at baseline Hypothyroidism TSH:0.276 Normal Free T4 Continue levothyroxine Migraine Anxiety disorder Continue Topamax, Ativan as needed Hold Ativan for excess sedation Morbid Obesity: BMI > 40 DVT Px: Heparin SQ Code Status Full Code Disposition Monitor in PCU History of Present Illness Chief Complaint: Altered mental status Primary Care Provider: Rowan Leos DO Patient is a 64-year-old female with history of chronic respiratory failure, obesity hypoventilation syndrome, COPD, obstructive sleep apnea, hypertension, hyperlipidemia, diabetes on insulin pump, CKD 3, hypothyroidism, migraine, anxiety disorder and other medical problems presents with history of altered mental status since this morning as per the patient's family. As per the patient's daughter, patient was doing well until yesterday. She was noted to be not acting herself this morning. She was noted to have a low-grade fever, chills and was found to be having " shakiness, jerking movements" this morning as per the family. She was recently being treated for an upper respiratory infection with Bactrim which she completed a 10-day course yesterday. Patient reports history of cough which has been gradually worsening but could not expectorate. She reports frontal headache which she attributes to her migraine and admits to missing her Topamax dose this morning. Also complains of right groin/thigh erythema and discomfort which is nonradiating since last few days. She is currently oriented to place, person while in ED but denies any focal weakness. Patient could not get CT head secondary to inability to lay flat since for CT. Denies any history of chest pain, SOB, dizziness, hemoptysis, fall, head trauma, LOC, focal weakness, numbness, change in vision, slurred speech, facial deformity, nausea, vomiting, abdominal pain, blood in stools, diarrhea, dysuria, hematuria, recent change in medications. Allergies Allergy/AdvReac Type Severity Reaction Status Date / Time amitriptyline Allergy Unknown ` Verified 10/14/19 13:59 gabapentin Allergy Unknown ` Verified 10/14/19 13:59 guaifenesin Allergy Unknown Unknown Verified 10/14/19 13:59 metformin Allergy Unknown ` Verified 10/14/19 13:59 Penicillins Allergy Unknown ` Verified 10/14/19 13:59 phenylephrine Allergy Unknown Unknown Verified 10/14/19 13:59 pseudoephedrine Allergy Unknown ` Verified 10/14/19 13:59 tetracycline Allergy Unknown ` Verified 10/14/19 13:59 doxycycline Allergy Unknown Verified 10/14/19 13:59 venlafaxine [From Effexor] Allergy Unknown Verified 10/14/19 13:59 Home Medications Home Medications Medication Instructions Recorded Confirmed Type Combivent Respimat 1 puff INHALATION QID 04/06/19 10/14/19 History Humalog U-100 Insulin 400 unit CONTINUOUS SUBCUTANEOUS 04/06/19 10/14/19 History INFUSION DIRECTED acetaminophen [Tylenol Extra 500 mg PO Q6H PRN 04/06/19 10/14/19 History Strength] acidophilus-pectin, citrus 1 cap PO QAM 04/06/19 10/14/19 History [Acidophilus Probiotic] albuterol sulfate 2.5 mg INHALATION QID 04/06/19 10/14/19 History albuterol sulfate [ProAir HFA] 2 puff INHALATION Q4H PRN 04/06/19 10/14/19 History aspirin [Aspirin Low Dose] 81 mg PO QAM 04/06/19 10/14/19 History atorvastatin 20 mg PO HS 04/06/19 10/14/19 History azithromycin 250 mg PO MOWEFR 04/06/19 10/14/19 History betamethasone dipropionate 1 applic TOPICAL BID 04/06/19 10/14/19 History bupropion HCl 100 mg PO QAM 04/06/19 10/14/19 History clotrimazole 1 applic TOPICAL BID 04/06/19 10/14/19 History clotrimazole-betamethasone 1 applic TOPICAL BID 04/06/19 10/14/19 History [Lotrisone] desloratadine [Clarinex] 5 mg PO HS 04/06/19 10/14/19 History docusate sodium 100 mg PO BID 04/06/19 10/14/19 History folic acid 1 mg PO QAM 04/06/19 10/14/19 History isosorbide mononitrate 60 mg PO QAM 04/06/19 10/14/19 History ketoconazole 1 applic TOPICAL BID 04/06/19 10/14/19 History metoprolol tartrate 12.5 mg PO BID 04/06/19 10/14/19 History multivitamin 1 tab PO QAM 04/06/19 10/14/19 History pantoprazole 40 mg PO QAM 04/06/19 10/14/19 History potassium chloride 20 meq PO QAM 04/06/19 10/14/19 History spironolactone 25 mg PO QAM 04/06/19 10/14/19 History topiramate 100 mg PO QAM 04/06/19 10/14/19 History topiramate 200 mg PO HS 04/06/19 10/14/19 History Oxygen Home #1 ea 06/28/19 08/30/19 History ipratropium-albuterol 0.5 mg-3 3 ml INHALATION Q4H #3 ml 06/28/19 10/14/19 History mg(2.5 mg base)/3 mL nebulization soln nitroglycerin 0.4 mg sublingual 0.4 mg SL UD tab 06/28/19 10/14/19 History tablet levothyroxine 175 mcg capsule 175 mcg PO QAM 08/30/19 10/14/19 History bupropion HCl 200 mg PO HS 10/14/19 10/14/19 History lorazepam [Ativan] 1 mg PO Q8H PRN 10/14/19 10/14/19 History torsemide 20 mg PO BID 10/14/19 10/14/19 History Past Med/Surg History Medical History Anxiety (Chronic) Bronchiectasis (Chronic) CHF (congestive heart failure) (Chronic) Chronic respiratory failure (Chronic) CKD (chronic kidney disease), stage III (Chronic) COPD (chronic obstructive pulmonary disease) (Chronic) DM type 2 (diabetes mellitus, type 2) (Chronic) Dyslipidemia (Chronic) HTN (hypertension) (Chronic) Hypothyroid (Chronic) Hypoventilation associated with obesity (Chronic) Migraine (Chronic) MRSA (methicillin resistant staph aureus) culture positive (Chronic) "sputum 11/2015" Right ventricular dysfunction (Chronic) Sepsis (Resolved) Tracheostomy in place (Chronic) Surgical History History of appendectomy (Chronic) History of cholecystectomy (Chronic) History of hysterectomy (Chronic) History of tonsillectomy and adenoidectomy (Chronic) S/P IVC filter (Chronic) Family History Mother Coronary heart disease COPD (chronic obstructive pulmonary disease) Social History Preferred Language: Ukrainian Communication Ability: Effective 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: No Beliefs That Will Affect Care: None Current Living Situation: Family Current Living Situation Comment: lives with daughter Other Information That Helps Us Care for You: No Feels Safe at Home: Yes Safety Concerns: Feels Safe At This Time Smoking Status: Never smoker Do You Dip or Chew Tobacco: No ; Second Hand Exposure: No ; Tobacco Cessation Education Requested by Patient: No Hx Alcohol Use: No Hx Substance Use: No Review of Systems Review of Systems: All systems reviewed & are unremarkable except as noted in HPI & below Physical Exam Physical Exam: .Physical Exam: Vitals signs as noted above General Appearance:Morbidly Obese, no apparent distress Head: normocephalic, Atraumatic Neck: +Trach Eyes: normal inspection, EOMI Neck: supple, Trachea midline Respiratory/Chest: Decreased breath sounds, CTA Cardiovascular: S1, S2, No murmur Abdomen/GI:Soft, Non tender, Bowel sounds present Extremities/Musculoskelatal:normal inspection, 1-2+ B/L LE edema, R groin/thigh--erythema, tender Neurologic/Psych:AAOX2, grossly no focal neurological deficits, follows commands Skin: normal color, warm Results & Data Vital Signs (Past 12 Hours) Vital Signs Temp Pulse Pulse Resp BP Pulse Ox 10/14/19 14:15 22 110/70 98 10/14/19 14:00 22 99 10/14/19 13:45 24 98 10/14/19 13:30 22 99 10/14/19 13:15 88 26 H 98 10/14/19 13:00 87 27 H 99 10/14/19 12:45 89 24 98 10/14/19 12:30 90 21 98 10/14/19 12:29 90 20 94 10/14/19 12:15 89 27 H 94 10/14/19 12:01 90 30 H 95 10/14/19 11:57 90 30 H 134/81 96 10/14/19 11:39 37.6 C H 93 H 90 20 121/77 94 Laboratory Results Short CBC 10/14/19 Range/Units 11:46 WBC 19.38 H (4.8-10.8) K/uL Hgb 12.3 (12.0-16.0) g/dL Hct 38.3 (37-47) % Plt Count 244 (130-400) K/uL BMP 10/14/19 11:46 Sodium 140 Potassium 3.9 Chloride 109 H Carbon Dioxide 23 BUN 27 H Creatinine 1.65 H Glucose 189 H Calcium 9.0 Liver Function 10/14/19 Range/Units 11:46 Total Bilirubin 0.6 (0.2-1) mg/dl AST 14 L (15-37) U/L ALT 20 (12-78) U/L Alkaline Phosphatase 89 (45-117) U/L Albumin 2.9 L (3.4-5.0) gm/dl Urine 10/14/19 Range/Units 14:06 Urine Color Yellow Urine Appearance Clear (Clear) Urine pH 7.0 (4.5-7.5) Ur Specific [place] 1.020 (1.000-1.030) Urine Protein Negative (Negative) Urine Glucose (UA) Negative (Negative) Diagnostic Findings CXR: Cardiomegaly. Developing pulmonary venous congestion. ECG Additional Comments: EKG: Sinus rhythm with first-degree AV block, left axis deviation, RBBB. (1) Cellulitis Laterality: right Site of cellulitis: extremity Site of cellulitis of extremity: lower extremity Qualified Code(s): L03.115 - Cellulitis of right lower limb
[2019-10-14 14:42] LABS: Base Excess VBG 0.8 mEq/L; HCO3 VBG 27 mmol/L; PCO2 VBG 49 mmHg (38-50); PO2 VBG 62 mmHg; pH VBG 7.36 (7.36-7.41)
[2019-10-14 14:47] LABS: Oxygen Saturation VBG < 60.0 %
[2019-10-14 15:52] LABS: Thyroid Stimulating Hormone 0.276 uIu/ml (0.300-4.500)
[2019-10-14] MEDS ORDERED: CONSULT PHARMACY STA (17:50)
[2019-10-14] MEDS ORDERED: PHARMACY GLYCEMIC MGMT CONSULT SCH (17:50)
[2019-10-14] MEDS ORDERED: INSULIN REGULAR PUMP SCH (17:50)
[2019-10-14] MEDS ORDERED: NITROGLYCERIN SL 0.4 MG/TAB TAB SL SCH (17:50)
[2019-10-14] MEDS ORDERED: GLUCOSE 10 TABS/TUBE PO PRN (17:50)
[2019-10-14] MEDS ORDERED: LORazepam 1 MG TAB PO PRN (17:50)
[2019-10-14] MEDS ORDERED: INSULIN LISPRO continuous subcutaneous infusion SCH (17:50)
[2019-10-14] MEDS ORDERED: GLUCOSE 40% GEL 15 GM TUBE PO PRN (17:50)
[2019-10-14] MEDS ORDERED: CARBOHYDRATES FOR HYPOGLYCEMIA PO PRN (17:50)
[2019-10-14] MEDS ORDERED: POLYETHYLENE (MIRALAX) 17 GM PACK PO PRN (17:50)
[2019-10-14] MEDS ORDERED: ALBUTEROL 0.083% NEBU SOLN 3 ML VIAL INH PRN (17:50)
[2019-10-14] MEDS ORDERED: GLUCAGON FOR INJ 1 MG VIAL SQ PRN (17:50)
[2019-10-14] MEDS ORDERED: DEXTROSE 50% 50 ML SYRINGE IV PRN (17:50)
[2019-10-14] MEDS ORDERED: CEFEPIME CONSULT ACTIVE PRN (18:03)
[2019-10-14] MEDS ORDERED: INSULIN HUMAN LISPRO (humaLOG) 100 UNITS/ML VIAL SC PRN (18:30)
[2019-10-14] MEDS ORDERED: SODIUM CHLORIDE 0.9% 1000ML 1,000 ML IV ONE (18:45)
[2019-10-14] MEDS ORDERED: IPRATROPIUM BROMIDE/ALBUTEROL respimat INH INH SCH (19:00)
[2019-10-14] MEDS: ALBUT/IPRATROP 3MG/0.5MG NEB 3 ML VIAL INH SCH ×2 (21:10→23:04)
[2019-10-14] MEDS: IPRATROPIUM BROMIDE/ALBUTEROL respimat INH INH SCH (21:10)
[2019-10-14] MEDS: HEPARIN SOD 5,000 UNIT/0.5 ML VIAL SQ SCH (21:32)
[2019-10-14] MEDS: BuPROPion SR 100 MG TABCR PO SCH (21:32)
[2019-10-14] MEDS: TORSEMIDE 20 MG TAB PO SCH (21:32)
[2019-10-14] MEDS: METOPROLOL TARTRATE 25 MG TAB PO SCH (21:33)
[2019-10-14] MEDS: DOCUSATE SODIUM 100 MG CAP PO SCH (21:33)
[2019-10-14] MEDS: ATORVASTATIN 20 MG TAB PO SCH (21:34)
[2019-10-14] MEDS: TOPIRAMATE 100 MG TAB PO SCH (21:34)
[2019-10-14] MEDS: ACETAMINOPHEN 325 MG TAB PO PRN (21:41)
[2019-10-15 01:10] LABS: Influenza A virus by PCR Neg for Influ A (Neg); Influenza B virus by PCR Neg for Influ B (Neg)
[2019-10-15] MEDS: [UNRECOGNIZED DRUG - REMARK] SCH ×3 (01:58→17:11)
[2019-10-15] MEDS: ALBUT/IPRATROP 3MG/0.5MG NEB 3 ML VIAL INH SCH ×6 (02:17→22:59)
[2019-10-15] MEDS: HEPARIN SOD 5,000 UNIT/0.5 ML VIAL SQ SCH ×3 (05:43→21:19)
[2019-10-15] MEDS: LEVOTHYROXINE SODIUM 175 MCG TABLET PO SCH (05:44)
[2019-10-15 07:46] LABS: Basophils # (auto) 0.02 K/uL (0-0.2); Basophils % (auto) 0.2 %; Eosinophils # (auto) 0.21 K/uL (0-0.5); Eosinophils % (auto) 2.2 %; Hematocrit (blood only) 36.9 % (37-47); Hemoglobin 11.4 g/dL (12.0-16.0); Immature Granulocytes # (auto) 0.06 K/uL (0.00-0.02); Immature Granulocytes % (auto) 0.6 %; Lymphocytes # (auto) 2.13 K/uL (1.2-3.4); Lymphocytes % (auto) 22.6 %; Mean Corpuscular Hemoglobin 28.6 pg (25-34); Mean Corpuscular Hgb Conc 30.9 g/dL (32-36); Mean Corpuscular Volume 92.5 fL (80-100); Mean Platelet Volume 10.1 fL (7.4-10.4); Monocytes # (auto) 0.89 K/uL (0.11-0.59); Monocytes % (auto) 9.4 %; Neutrophils # (auto) 6.12 K/uL (1.4-6.5); Platelet Count 205 K/uL (130-400); RDW Coefficient of Variation 14.5 % (11.5-14.5); RDW Standard Deviation 49.4 fL (36.4-46.3); Red Blood Count 3.99 M/uL (4.2-5.4); White Blood Count 9.43 K/uL (4.8-10.8)
[2019-10-15] MEDS: PANTOprazole 40 MG TAB PO SCH (08:04)
[2019-10-15] MEDS: ASPIRIN 81 MG ECTAB PO SCH (08:04)
[2019-10-15] MEDS: ISOSORBIDE MONO EXTENDED REL 60 MG TABCR PO SCH (08:04)
[2019-10-15] MEDS: DOCUSATE SODIUM 100 MG CAP PO SCH ×2 (08:05→21:14)
[2019-10-15] MEDS: METOPROLOL TARTRATE 25 MG TAB PO SCH ×2 (08:05→21:15)
[2019-10-15] MEDS: TORSEMIDE 20 MG TAB PO SCH ×2 (08:05→21:14)
[2019-10-15] MEDS: SPIRONOLACTONE 25 MG TAB PO SCH (08:05)
[2019-10-15] MEDS: FOLIC ACID 1 MG TAB PO SCH (08:05)
[2019-10-15] MEDS: IPRATROPIUM BROMIDE/ALBUTEROL respimat INH INH SCH ×4 (08:05→19:27)
[2019-10-15] MEDS: BuPROPion SR 100 MG TABCR PO SCH ×2 (08:06→21:19)
[2019-10-15] MEDS: TOPIRAMATE 100 MG TAB PO SCH ×2 (08:06→21:17)
[2019-10-15] MEDS: CEFEPIME 2,000 MG in SYRINGE 7.5 ML IV SCH (08:14)
[2019-10-15 08:16] LABS: Estimated Average Glucose 171 mg/dl; Hemoglobin A1C 7.6 % (4.5-5.6)
[2019-10-15 08:21] LABS: BUN Creatinine Ratio 15.5 (10-20); Calcium 8.7 mg/dl (8.5-10.1); Est GFR (African American) 40.6; Magnesium 2.1 mg/dl (1.8-2.4); Potassium 3.7 mmol/L (3.5-5.1)
--- NOTE | 2019-10-15 12:54 | Pharmacy Report ---
Pharmacy Glycemic Short Note 2 - Date of Service October 15, 2019 - Glycemic Short BSG Results (Last 24 hours): 10/14/19 10/15/19 10/15/19 20:35 07:25 07:31 Glucose 130 H POC Glucose 191 H 128 H 10/15/19 11:43 Glucose POC Glucose 171 H ASSESSMENT: * Pt is a 64yo F known to the pharmacy glycemic service from previous admissions. BSGs remain well controlled while on her pump. She is ordered a diet a tolerating it. There is no indication to remove her pump. PLAN FOR INPATIENT GLYCEMIC CONTROL: * Continue pump per patient's settings.
--- NOTE | 2019-10-15 14:10 | Hospitalist Progress Note ---
Date of Service October 15, 2019 Assessment & Plan (1) Cellulitis: Right lower extremity cellulitis Acute Bronchitis Possible Sepsis Normal lactate levels CXR, UA--not suggestive of infection Blood cultures: 1/2 growing gram-positive cocci Likely contamination Continue Cefepime Day #1 Received IV fluids Continue pulmonary hygiene Altered mental status--Resolved Likely secondary to metabolic encephalopathy's due to infection CT head could not be obtained as patient could not lay flat for CT Grossly no focal neurological deficits No hypercarbia or hyperammonemia Neuro checks Aspiration, fall precautions Chronic respiratory failure with hypoxia Obesity hypoventilation syndrome COPD Chronic diastolic (HFpEF) heart failure Continue supplemental oxygen--on 5 liters qHS at baseline Continue Home inhalers, Nebs Pulm Hygiene Continue home diuretics Monitor volume status Hypertension Stable Continue home medications Hyperlipidemia Continue statin DM II--insulin-dependent On insulin pump Glycemic pharmacy consulted CKD III Cr at baseline Hypothyroidism TSH:0.276 Normal Free T4 Continue levothyroxine Migraine Anxiety disorder Continue Topamax, Ativan as needed Hold Ativan for excess sedation Morbid Obesity: BMI > 40 DVT Px: Heparin SQ Code Status Full Code Disposition PT/OT prior to discharge Subjective Patient is seen and examined at bedside Right leg pain, erythema improving Cough better Mental status seems to be back to baseline More alert awake today Denies any chest pain, shortness of breath, dizziness, nausea, abdominal pain Blood cultures 1/2 : Gram-positive cocci Review of Systems Review of Systems: All systems reviewed & are unremarkable except as noted in HPI & below Physical Exam Physical Exam: Physical Exam: Vitals signs as noted above General Appearance:Morbidly Obese, no apparent distress Head: normocephalic, Atraumatic Neck: +Trach Eyes: normal inspection, EOMI Neck: supple, Trachea midline Respiratory/Chest: Decreased breath sounds, CTA Cardiovascular: S1, S2, No murmur Abdomen/GI:Soft, Non tender, Bowel sounds present Extremities/Musculoskelatal:normal inspection, 1-2+ B/L LE edema, R groin/thigh--erythema improving, tender Neurologic/Psych:AAOX2, grossly no focal neurological deficits, follows commands Skin: normal color, warm Results & Data Vital Signs (Past 12 Hours) Vital Signs Temp Pulse Pulse Resp BP Pulse Ox 10/15/19 12:25 36.5 C 73 18 95/54 L 94 10/15/19 11:29 68 18 100 10/15/19 08:18 36.5 C 76 18 101/55 L 95 10/15/19 08:00 66 10/15/19 07:08 67 20 96 10/15/19 04:00 36.6 C 66 21 93/69 L 98 10/15/19 02:17 70 16 97 Laboratory Results Short CBC 10/15/19 Range/Units 07:25 WBC 9.43 (4.8-10.8) K/uL Hgb 11.4 L (12.0-16.0) g/dL Hct 36.9 L (37-47) % Plt Count 205 (130-400) K/uL BMP 10/15/19 07:25 Sodium 141 Potassium 3.7 Chloride 109 H Carbon Dioxide 25 BUN 24 H Creatinine 1.56 H Glucose 130 H Calcium 8.7 Urine 10/14/19 Range/Units 14:06 Urine Color Yellow Urine Appearance Clear (Clear) Urine pH 7.0 (4.5-7.5) Ur Specific [place] 1.020 (1.000-1.030) Urine Protein Negative (Negative) Urine Glucose (UA) Negative (Negative) (1) Cellulitis Laterality: right Site of cellulitis: extremity Site of cellulitis of extremity: lower extremity Qualified Code(s): L03.115 - Cellulitis of right lower limb
[2019-10-15] MEDS: ATORVASTATIN 20 MG TAB PO SCH (21:15)
[2019-10-16] MEDS: [UNRECOGNIZED DRUG - REMARK] SCH ×3 (00:03→17:13)
[2019-10-16] MEDS: ALBUT/IPRATROP 3MG/0.5MG NEB 3 ML VIAL INH SCH ×6 (03:46→23:16)
[2019-10-16] MEDS: LEVOTHYROXINE SODIUM 175 MCG TABLET PO SCH (05:40)
[2019-10-16] MEDS: HEPARIN SOD 5,000 UNIT/0.5 ML VIAL SQ SCH ×3 (05:42→21:50)
[2019-10-16] MEDS: IPRATROPIUM BROMIDE/ALBUTEROL respimat INH INH SCH ×4 (07:32→21:47)
[2019-10-16] MEDS: METOPROLOL TARTRATE 25 MG TAB PO SCH ×2 (07:33→21:49)
[2019-10-16] MEDS: BuPROPion SR 100 MG TABCR PO SCH ×2 (07:33→21:48)
[2019-10-16] MEDS: TOPIRAMATE 100 MG TAB PO SCH ×2 (07:33→21:50)
[2019-10-16] MEDS: ASPIRIN 81 MG ECTAB PO SCH (07:33)
[2019-10-16] MEDS: ISOSORBIDE MONO EXTENDED REL 60 MG TABCR PO SCH (07:33)
[2019-10-16] MEDS: CEFEPIME 2,000 MG in SYRINGE 7.5 ML IV SCH (07:33)
[2019-10-16] MEDS: PANTOprazole 40 MG TAB PO SCH (07:33)
[2019-10-16] MEDS: FOLIC ACID 1 MG TAB PO SCH (07:34)
[2019-10-16] MEDS: DOCUSATE SODIUM 100 MG CAP PO SCH ×2 (07:34→21:51)
[2019-10-16] MEDS: SPIRONOLACTONE 25 MG TAB PO SCH (07:34)
[2019-10-16] MEDS: TORSEMIDE 20 MG TAB PO SCH (07:34)
[2019-10-16 07:51] LABS: Hematocrit (blood only) 34.9 % (37-47); Hemoglobin 10.8 g/dL (12.0-16.0); Mean Corpuscular Hemoglobin 28.5 pg (25-34); Mean Corpuscular Hgb Conc 30.9 g/dL (32-36); Mean Corpuscular Volume 92.1 fL (80-100); Platelet Count 211 K/uL (130-400); RDW Coefficient of Variation 14.6 % (11.5-14.5); RDW Standard Deviation 49.4 fL (36.4-46.3); Red Blood Count 3.79 M/uL (4.2-5.4); White Blood Count 8.33 K/uL (4.8-10.8)
[2019-10-16 08:20] LABS: BUN Creatinine Ratio 17.2 (10-20); Calcium 8.6 mg/dl (8.5-10.1); Creatinine Clr Calc Pharmacy 52.8 ml/min; Est GFR (African American) 39.9; Est GFR (Non-African American) 34.5; Potassium 3.3 mmol/L (3.5-5.1)
[2019-10-16] MEDS: POTASSIUM CHLORIDE 20 MEQ TABCR PO SCH (10:13)
[2019-10-16] MEDS: TORSEMIDE 10 MG TAB PO SCH (17:13)
--- NOTE | 2019-10-16 18:29 | Hospitalist Progress Note ---
Date of Service October 16, 2019 Assessment & Plan (1) Cellulitis: Right lower extremity cellulitis Acute Bronchitis Possible Sepsis Normal lactate levels CXR, UA--not suggestive of infection Blood cultures: 1/2 growing gram-positive cocci Likely contamination Repeat blood cultures pending Continue Cefepime Day #2 Received IV fluids Continue pulmonary hygiene Respiratory symptoms improved Altered mental status--Resolved Likely secondary to metabolic encephalopathy's due to infection CT head could not be obtained as patient could not lay flat for CT Grossly no focal neurological deficits No hypercarbia or hyperammonemia Neuro checks Aspiration, fall precautions Chronic respiratory failure with hypoxia Obesity hypoventilation syndrome COPD Chronic diastolic (HFpEF) heart failure Continue supplemental oxygen--on 5 liters qHS at baseline Continue Home inhalers, Nebs Pulm Hygiene Continue home diuretics Monitor volume status Hypokalemia Likely secondary to diuretics Replace and monitor electrolytes as needed Hypertension Stable Continue home medications Hyperlipidemia Continue statin DM II--insulin-dependent On insulin pump Glycemic pharmacy consulted CKD III Cr at baseline Hypothyroidism TSH:0.276 Normal Free T4 Continue levothyroxine Migraine Anxiety disorder Continue Topamax, Ativan as needed Hold Ativan for excess sedation Morbid Obesity: BMI > 40 DVT Px: Heparin SQ Code Status Full Code Disposition PT/OT prior to discharge Subjective Patient is seen and examined at bedside Complains of 5/10 right leg pain today Poor sleep overnight Had PT OT earlier today Offers any other complaints Right leg erythema improved Denies any chest pain, shortness of breath, dizziness, nausea, abdominal pain Review of Systems Review of Systems: All systems reviewed & are unremarkable except as noted in HPI & below Physical Exam Physical Exam: Physical Exam: Vitals signs as noted above General Appearance:Morbidly Obese, no apparent distress Head: normocephalic, Atraumatic Neck: +Trach Eyes: normal inspection, EOMI Neck: supple, Trachea midline Respiratory/Chest: Decreased breath sounds, CTA Cardiovascular: S1, S2, No murmur Abdomen/GI:Soft, Non tender, Bowel sounds present Extremities/Musculoskelatal:normal inspection, 1-2+ B/L LE edema, R groin/thigh--erythema improved, tender Neurologic/Psych:AAOX2, grossly no focal neurological deficits, follows commands Skin: normal color, warm Results & Data Vital Signs (Past 12 Hours) Vital Signs Temp Pulse Pulse Pulse Resp BP Pulse Ox 10/16/19 16:41 76 10/16/19 15:46 80 18 96 10/16/19 14:56 36.6 C 79 20 156/63 H 95 10/16/19 11:50 78 81 21 95 10/16/19 11:29 36.6 C 73 21 113/67 95 10/16/19 07:46 73 16 94 10/16/19 07:00 36.7 C 73 20 125/72 98 Laboratory Results Short CBC 10/16/19 Range/Units 07:20 WBC 8.33 (4.8-10.8) K/uL Hgb 10.8 L (12.0-16.0) g/dL Hct 34.9 L (37-47) % Plt Count 211 (130-400) K/uL BMP 10/16/19 07:20 Sodium 142 Potassium 3.3 L Chloride 110 H Carbon Dioxide 25 BUN 27 H Creatinine 1.58 H Glucose 167 H Calcium 8.6 (1) Cellulitis Laterality: right Site of cellulitis: extremity Site of cellulitis of extremity: lower extremity Qualified Code(s): L03.115 - Cellulitis of right lower limb
[2019-10-16] MEDS: ATORVASTATIN 20 MG TAB PO SCH (21:48)
[2019-10-17] MEDS: [UNRECOGNIZED DRUG - REMARK] SCH ×3 (01:05→16:35)
[2019-10-17] MEDS: ACETAMINOPHEN 325 MG TAB PO PRN (02:10)
[2019-10-17] MEDS: ALBUT/IPRATROP 3MG/0.5MG NEB 3 ML VIAL INH SCH ×2 (03:21→07:15)
[2019-10-17] MEDS: LEVOTHYROXINE SODIUM 175 MCG TABLET PO SCH (05:43)
[2019-10-17] MEDS: HEPARIN SOD 5,000 UNIT/0.5 ML VIAL SQ SCH ×3 (05:43→21:00)
[2019-10-17] MEDS ORDERED: ACETAMINOPHEN 325 MG TAB PO PRN (07:27)
[2019-10-17] MEDS: CEFEPIME 2,000 MG in SYRINGE 7.5 ML IV SCH (07:51)
[2019-10-17] MEDS: BuPROPion SR 100 MG TABCR PO SCH ×2 (07:52→20:02)
[2019-10-17] MEDS: ISOSORBIDE MONO EXTENDED REL 60 MG TABCR PO SCH (07:52)
[2019-10-17] MEDS: PANTOprazole 40 MG TAB PO SCH (07:52)
[2019-10-17] MEDS: SPIRONOLACTONE 25 MG TAB PO SCH (07:52)
[2019-10-17] MEDS: DOCUSATE SODIUM 100 MG CAP PO SCH ×2 (07:52→20:07)
[2019-10-17] MEDS: FOLIC ACID 1 MG TAB PO SCH (07:52)
[2019-10-17] MEDS: TOPIRAMATE 100 MG TAB PO SCH ×2 (07:52→20:02)
[2019-10-17] MEDS: ASPIRIN 81 MG ECTAB PO SCH (07:52)
[2019-10-17] MEDS: POTASSIUM CHLORIDE 20 MEQ TABCR PO SCH (07:52)
[2019-10-17] MEDS: IPRATROPIUM BROMIDE/ALBUTEROL respimat INH INH SCH ×4 (07:53→20:56)
[2019-10-17] MEDS: TORSEMIDE 10 MG TAB PO SCH ×2 (07:53→16:09)
[2019-10-17] MEDS: METOPROLOL TARTRATE 25 MG TAB PO SCH ×2 (07:53→20:03)
[2019-10-17 08:08] LABS: Hematocrit (blood only) 35.3 % (37-47); Hemoglobin 11.1 g/dL (12.0-16.0); Mean Corpuscular Hemoglobin 29.1 pg (25-34); Mean Corpuscular Hgb Conc 31.4 g/dL (32-36); Mean Corpuscular Volume 92.4 fL (80-100); Mean Platelet Volume 10.1 fL (7.4-10.4); Platelet Count 242 K/uL (130-400); RDW Coefficient of Variation 14.6 % (11.5-14.5); RDW Standard Deviation 49.1 fL (36.4-46.3); Red Blood Count 3.82 M/uL (4.2-5.4); White Blood Count 11.29 K/uL (4.8-10.8)
[2019-10-17 08:45] LABS: BUN Creatinine Ratio 15.7 (10-20); Calcium 9.3 mg/dl (8.5-10.1); Creatinine Clr Calc Pharmacy 48.9 ml/min; Est GFR (African American) 36.8; Est GFR (Non-African American) 31.8; Magnesium 2.1 mg/dl (1.8-2.4); Potassium 3.5 mmol/L (3.5-5.1)
--- NOTE | 2019-10-17 15:00 | Pharmacy Report ---
Pharmacy Glycemic Short Note 2 - Date of Service October 17, 2019 - Glycemic Short BSG Results (Last 24 hours): 10/16/19 10/16/19 10/17/19 16:29 20:23 07:32 Glucose 127 H POC Glucose 134 H 119 H 10/17/19 10/17/19 07:40 11:24 Glucose POC Glucose 141 H 179 H OUTPATIENT REGIMEN: Humalog pump * Basal: 4.25 units x 24 hours (total: 102 units) * Carb Ratio: 1 unit/2g carb * Correctional: 15 * BG target: 110-130 (5166-9941); 120 (9829-1408) * TDD: ~125-195 units/day A1c = 7.6% (10/15/19) ASSESSMENT: * Pt is a 64yo F known to the pharmacy glycemic service from previous admissions. * Pt has continued to manage glycemic control with her humalog insulin pump since the time of admission. * BSGs have been acceptable and ranged from 112 - 169 mg/dL yesterday. * Continues to tolerate type 1 DM diet. * No changes to insulin regimen at this time. PLAN FOR INPATIENT GLYCEMIC CONTROL: * Continue humalog pump per outpatient settings.
--- NOTE | 2019-10-17 15:23 | Hospitalist Progress Note ---
Date of Service October 17, 2019 Assessment & Plan (1) Cellulitis: Right lower extremity cellulitis Acute Bronchitis Possible Sepsis -Chest X ray and urine analysis not suggestive of infection -as of 12/17/18 Leg cellulitis appears resolved. however white blood cell counts are elevated. admission 10/14/19 blood cultures have not returned with full sensitivities but preliminary results of gram positive cocci in clusters in 2 bottles -follow repeat blood cultures from 10/16/19 -Continue Cefepime Altered mental status from Metabolic Encencephalopathy (from infection) -mental status is back at baseline currently Chronic respiratory failure with hypoxia Obesity hypoventilation syndrome COPD Chronic diastolic (HFpEF) heart failure -Continue supplemental oxygen--on 5 liters qHS at baseline, otherwise breaths on room air with trach -Continue Home inhalers, Nebs -Continue home diuretics Hypokalemia -Likely secondary to diuretics -Replace and monitor electrolytes as needed Hypertension -Continue home medications Hyperlipidemia -Continue statin Type 2 diabetes mellitus with skilled nursing current use of insulin -On insulin pump, Glycemic pharmacy following Chronic Kidney Disease Stage III -monitor renal function Hypothyroidism -TSH:0.276; Normal Free T4 -Continue levothyroxine Migraine Anxiety disorder -Continue Topamax, Ativan as needed Morbid Obesity with BMI 61.4 -encourage ambulation DVT Px: Heparin SQ Code Status Full Code Disposition PT/OT prior to discharge Subjective Patient seen and examined in chair. Leg cellulitis appears resolved. however white blood cell counts are elevated. admission blood cultures have not returned with full sensitivities. patient denies acute distress. breathing on room air with trach. patient denies chest pain or abdominal pain. no nausea. no vomiting. remains on IV antibiotics Review of Systems Review of Systems: All systems reviewed & are unremarkable except as noted in HPI & below Physical Exam Constitutional: + obese and comfortable Eyes: PERRL, conjunctivae normal, anicteric sclerae EOM intact bilaterally ENMT: external ear and nose normal, oropharynx normal Neck: normal visual inspection Respiratory: normal respiratory effort, lungs clear to auscultation Cardiovascular: Rate/Rhythm: regular rate and regular rhythm Gastrointestinal (Abdomen): normal bowel sounds, soft, nontender, no hepatosplenomegaly Inspection/Auscultation: abdomen normal to inspection (insulin pump) Musculoskeletal: Head/Neck/Chest: normocephalic and head atraumatic Neurologic: PERRL, EOMI, accommodation nl, no face palsy, no dysarthria Psychiatric: A+Ox3, euthymic affect Results & Data Vital Signs (Past 12 Hours) Vital Signs Temp Pulse Resp BP Pulse Ox 10/17/19 14:47 36.6 C 77 18 103/67 96 10/17/19 10:56 36.8 C 76 18 126/75 95 10/17/19 07:15 77 16 96 10/17/19 07:00 36.6 C 77 20 123/72 95 10/17/19 04:22 36.6 C 68 18 122/68 98 10/17/19 03:21 88 18 96 (1) Cellulitis Laterality: right Site of cellulitis: extremity Site of cellulitis of extremity: lower extremity Qualified Code(s): L03.115 - Cellulitis of right lower limb
[2019-10-17] MEDS ORDERED: TORSEMIDE 10 MG TAB PO SCH (16:30)
[2019-10-17] MEDS ORDERED: OXYCODONE HCL IR 5 MG TAB (IMMEDIATE RELEASE) PO STA (18:47)
[2019-10-17] MEDS: ATORVASTATIN 20 MG TAB PO SCH (20:03)
[2019-10-17] MEDS ORDERED: MICONAZOLE NITRATE POWDER 43 GM EXT PRN (23:19)
[2019-10-18] MEDS: [UNRECOGNIZED DRUG - REMARK] SCH ×3 (00:42→15:19)
[2019-10-18] MEDS: LEVOTHYROXINE SODIUM 175 MCG TABLET PO SCH (06:08)
[2019-10-18] MEDS: HEPARIN SOD 5,000 UNIT/0.5 ML VIAL SQ SCH ×2 (06:08→13:11)
[2019-10-18 07:56] LABS: Albumin Level 2.6 gm/dl (3.4-5.0); Calcium 9.1 mg/dl (8.5-10.1); Creatinine Clr Calc Pharmacy 51.6 ml/min; Est GFR (Non-African American) 33.7; Potassium 3.7 mmol/L (3.5-5.1)
[2019-10-18 07:58] LABS: Albumin Globulin Ratio 0.6 (0.9-2); Bilirubin,Total 0.6 mg/dl (0.2-1); Globulin 4.6 gm/dl (2.5-4.0); Total Protein 7.2 gm/dl (6.4-8.2)
[2019-10-18] MEDS: IPRATROPIUM BROMIDE/ALBUTEROL respimat INH INH SCH ×3 (08:11→17:03)
[2019-10-18] MEDS: CEFEPIME 2,000 MG in SYRINGE 7.5 ML IV SCH (08:11)
[2019-10-18] MEDS: DOCUSATE SODIUM 100 MG CAP PO SCH (08:11)
[2019-10-18] MEDS: METOPROLOL TARTRATE 25 MG TAB PO SCH (08:11)
[2019-10-18] MEDS: PANTOprazole 40 MG TAB PO SCH (08:11)
[2019-10-18] MEDS: SPIRONOLACTONE 25 MG TAB PO SCH (08:12)
[2019-10-18] MEDS: TORSEMIDE 10 MG TAB PO SCH ×2 (08:12→15:19)
[2019-10-18] MEDS: FOLIC ACID 1 MG TAB PO SCH (08:12)
[2019-10-18] MEDS: POTASSIUM CHLORIDE 20 MEQ TABCR PO SCH (08:12)
[2019-10-18] MEDS: ASPIRIN 81 MG ECTAB PO SCH (08:12)
[2019-10-18] MEDS: ISOSORBIDE MONO EXTENDED REL 60 MG TABCR PO SCH (08:12)
[2019-10-18] MEDS: TOPIRAMATE 100 MG TAB PO SCH (08:13)
[2019-10-18] MEDS: BuPROPion SR 100 MG TABCR PO SCH (08:13)
--- NOTE | 2019-10-18 15:44 | Hospitalist Progress Note ---
Date of Service October 18, 2019 Assessment & Plan (1) Cellulitis: Right lower extremity cellulitis Acute Bronchitis Possible Sepsis suspected bacteremia -Chest X ray and urine analysis not suggestive of infection -patient was initially started on cefepime -admission blood cultures on 10/14/19 with Coag neg staph not lugdunensis. Patient was treated for suspected bacteremia while those culture results were pending -followup blood cultures on 10/16/19 with no growth -right leg cellulitis appears resolved as of 10/17/19 on exam -patient was continued cefepime and transitioned to oral cephalexin -Patient should take oral cephalexin 500 mg every 4 hours for 5 more days to prevent possibility of further reinfection Medication sent electronically to [facility] [address] [place] [id number] -upcoming outpatient appointments 10/22/2019 10:20 AM Provider Rowan Leos DO Department [facility] 11/02/2019 2:15 PM Provider Enzo Houston MD Department Otolaryngology/Head & Neck/Facial Plastic Surgery Altered mental status from Metabolic Encephalopathy (from infection) -mental status is back at baseline currently Chronic respiratory failure with hypoxia Obesity hypoventilation syndrome COPD Chronic diastolic (HFpEF) heart failure -Continue supplemental oxygen--on 5 liters qHS at baseline, otherwise breaths on room air with trach -Continue Home inhalers, Nebs -Continue home diuretics Hypokalemia -serum potassium 3.3 on 10/15/19. Likely secondary to diuretics -potassium levels have been repleted on this admission. hypokalemia resolved Hypertension -Continue home medications Hyperlipidemia -Continue statin Type 2 diabetes mellitus with manager intermediate current use of insulin -patient is chronically on insulin pump, continue usual insulin dosing Chronic Kidney Disease Stage III -stable Hypothyroidism -TSH:0.276; Normal Free T4 -Continue levothyroxine Migraine Anxiety disorder -Continue Topamax, Ativan as needed Morbid Obesity with BMI 61.4 -encourage ambulation DVT Prophylaxis:Heparin SQ while inpatient Code Status Full Code Discharge Diagnosis: Right Lower extremity Cellulitis, Morbid Obesity with BMI 61.4, Altered mental status from Metabolic Encephalopathy from infection (resolved), suspected bacteremia, Chronic respiratory failure with hypoxia, Chronic Kidney Disease Stage III, Type 2 diabetes mellitus with manager intermediate current use of insulin Subjective Patient seen and examined. doing well. ambulates from bathroom. denies acute pain. lower extremities does not have any rashes. no erythema palpable of the legs or feet. no dizziness. no chest pain. no palpitations. patient is pleasant and cooperative. discharge plans discussed with patient and her family members Review of Systems Review of Systems: All systems reviewed & are unremarkable except as noted in HPI & below Physical Exam Constitutional: + obese and comfortable Eyes: PERRL, conjunctivae normal, anicteric sclerae EOM intact bilaterally ENMT: external ear and nose normal, oropharynx normal Neck: normal visual inspection Respiratory: normal respiratory effort, lungs clear to auscultation Cardiovascular: Rate/Rhythm: regular rate and regular rhythm Gastrointestinal (Abdomen): normal bowel sounds, soft, nontender, no hepatosplenomegaly Inspection/Auscultation: abdomen normal to inspection (insulin pump) Musculoskeletal: Head/Neck/Chest: normocephalic and head atraumatic Neurologic: PERRL, EOMI, accommodation nl, no face palsy, no dysarthria Psychiatric: A+Ox3, euthymic affect Results & Data Vital Signs (Past 12 Hours) Vital Signs Temp Pulse Pulse Resp BP Pulse Ox 10/18/19 14:59 80 10/18/19 12:45 36.8 C 75 18 115/63 95 10/18/19 07:39 36.5 C 71 20 114/71 94 (1) Cellulitis Laterality: right Site of cellulitis: extremity Site of cellulitis of extremity: lower extremity Qualified Code(s): L03.115 - Cellulitis of right lower limb
--- NOTE | 2019-10-18 15:51 | Discharge Summary ---
Date of Service October 18, 2019 Admission HPI Per Admitting Provider Patient is a 64-year-old female with history of chronic respiratory failure, obesity hypoventilation syndrome, COPD, obstructive sleep apnea, hypertension, hyperlipidemia, diabetes on insulin pump, CKD 3, hypothyroidism, migraine, anxiety disorder and other medical problems presents with history of altered mental status since this morning as per the patient's family. As per the patient's daughter, patient was doing well until yesterday. She was noted to be not acting herself this morning. She was noted to have a low-grade fever, chills and was found to be having " shakiness, jerking movements" this morning as per the family. She was recently being treated for an upper respiratory infection with Bactrim which she completed a 10-day course yesterday. Patient reports history of cough which has been gradually worsening but could not expectorate. She reports frontal headache which she attributes to her migraine and admits to missing her Topamax dose this morning. Also complains of right groin/thigh erythema and discomfort which is nonradiating since last few days. She is currently oriented to place, person while in ED but denies any focal weakness. Patient could not get CT head secondary to inability to lay flat since for CT. Denies any history of chest pain, SOB, dizziness, hemoptysis, fall, head trauma, LOC, focal weakness, numbness, change in vision, slurred speech, facial deformity, nausea, vomiting, abdominal pain, blood in stools, diarrhea, dysuria, hematuria, recent change in medications. Admission Exam Per Admitting Provider General Appearance:Morbidly Obese, no apparent distress Head: normocephalic, Atraumatic Neck: +Trach Eyes: normal inspection, EOMI Neck: supple, Trachea midline Respiratory/Chest: Decreased breath sounds, CTA Cardiovascular: S1, S2, No murmur Abdomen/GI:Soft, Non tender, Bowel sounds present Extremities/Musculoskelatal:normal inspection, 1-2+ B/L LE edema, R groin/th igh--erythema, tender Neurologic/Psych:AAOX2, grossly no focal neurological deficits, follows commands Skin: normal color, warm Principal Diagnosis Right Lower extremity Cellulitis, Morbid Obesity with BMI 61.4, Altered mental status from Metabolic Encephalopathy from infection (resolved), suspected bacteremia, Chronic respiratory failure with hypoxia, Chronic Kidney Disease Stage III, Type 2 diabetes mellitus with 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 use of insulin Discharge Exam Constitutional + obese and comfortable Eyes PERRL, conjunctivae normal, anicteric sclerae EOM intact bilaterally ENMT external ear and nose normal, oropharynx normal Neck normal visual inspection Respiratory normal respiratory effort, lungs clear to auscultation Cardiovascular Rate/Rhythm: regular rate and regular rhythm Gastrointestinal (Abdomen) normal bowel sounds, soft, nontender, no hepatosplenomegaly Inspection/Auscultation: abdomen normal to inspection (insulin pump) Musculoskeletal Head/Neck/Chest: normocephalic and head atraumatic Neurologic PERRL, EOMI, accommodation nl, no face palsy, no dysarthria Psychiatric A+Ox3, euthymic affect Discharge Data Allergies Allergy/AdvReac Type Severity Reaction Status Date / Time amitriptyline Allergy Unknown ` Verified 10/14/19 13:59 gabapentin Allergy Unknown ` Verified 10/14/19 13:59 guaifenesin Allergy Unknown Unknown Verified 10/14/19 13:59 metformin Allergy Unknown ` Verified 10/14/19 13:59 Penicillins Allergy Unknown ` Verified 10/14/19 13:59 phenylephrine Allergy Unknown Unknown Verified 10/14/19 13:59 pseudoephedrine Allergy Unknown ` Verified 10/14/19 13:59 tetracycline Allergy Unknown ` Verified 10/14/19 13:59 doxycycline Allergy Unknown Verified 10/14/19 13:59 venlafaxine [From Effexor] Allergy Unknown Verified 10/14/19 13:59 Consultations 10/14/19 13:59 ED Decision to Admit Stat 10/14/19 17:50 Consult Case Management - Discharge Planning Routine Hospital Course (1) Cellulitis: Right lower extremity cellulitis Acute Bronchitis Possible Sepsis suspected bacteremia -Chest X ray and urine analysis not suggestive of infection -patient was initially started on cefepime -admission blood cultures on 10/14/19 with Coag neg staph not lugdunensis. Patient was treated for suspected bacteremia while those culture results were pending -followup blood cultures on 10/16/19 with no growth -right leg cellulitis appears resolved as of 10/17/19 on exam -patient was continued cefepime and transitioned to oral cephalexin -Patient should take oral cephalexin 500 mg every 4 hours for 5 more days to prevent possibility of further reinfection Medication sent electronically to [address] [phone] -upcoming outpatient appointments 10/22/2019 10:20 AM Provider Rowan Leos DO Department [facility] 11/02/2019 2:15 PM Provider Enzo Houston MD Department Otolaryngology/Head & Neck/Facial Plastic Surgery Altered mental status from Metabolic Encephalopathy (from infection) -mental status is back at baseline currently Chronic respiratory failure with hypoxia Obesity hypoventilation syndrome COPD Chronic diastolic (HFpEF) heart failure -Continue supplemental oxygen--on 5 liters qHS at baseline, otherwise breaths on room air with trach -Continue Home inhalers, Nebs -Continue home diuretics Hypokalemia -serum potassium 3.3 on 10/15/19. Likely secondary to diuretics -potassium levels have been repleted on this admission. hypokalemia resolved Hypertension -Continue home medications Hyperlipidemia -Continue statin Type 2 diabetes mellitus with residential current use of insulin -patient is chronically on insulin pump, continue usual insulin dosing Chronic Kidney Disease Stage III -stable Hypothyroidism -TSH:0.276; Normal Free T4 -Continue levothyroxine Migraine Anxiety disorder -Continue Topamax, Ativan as needed Morbid Obesity with BMI 61.4 -encourage ambulation DVT Prophylaxis:Heparin SQ while inpatient Code Status Full Code Discharge Diagnosis: Right Lower extremity Cellulitis, Morbid Obesity with BMI 61.4, Altered mental status from Metabolic Encephalopathy from infection (resolved), suspected bacteremia, Chronic respiratory failure with hypoxia, Chronic Kidney Disease Stage III, Type 2 diabetes mellitus with residential current use of insulin Total Time Total Time Spent Total Time Spent (In Minutes): 40 minutes Total Time Includes: Examination of the Patient, Discharge Planning, Medication Reconciliation and Communication With Other Providers Discharge Plan Discharge Items Patient Disposition: Home - Self-Care Reason For Visit: ALTERED MENTAL STATUS Discharge Diagnosis: Right Lower extremity Cellulitis, Morbid Obesity with BMI 61.4, Altered mental status from Metabolic Encephalopathy from infection (resolved), suspected bacteremia, Chronic respiratory failure with hypoxia, Chronic Kidney Disease Stage III, Type 2 diabetes mellitus with 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 use of insulin Condition on Discharge: Good Activity: Resume your previous activity Non-emergency contact: Primary Care Provider Call non-emergency contact if: you have any medication questions Follow-up/Referrals: Rowan Leos DO [Primary Care Provider] - Diet: Carb Count or DM1 and Heart Healthy Fluids: 1500ml (6 cups) Addtl Attending Provider Instructions: Discharge to home patient was initially started on cefepime admission blood cultures on 10/14/19 with Coag neg staph not lugdunensis. Patient was treated for suspected bacteremia while those culture results were pending followup blood cultures on 10/16/19 with no growth right leg cellulitis appears resolved as of 10/17/19 on exam patient was continued cefepime and transitioned to oral cephalexin Patient should take oral cephalexin 500 mg every 4 hours for 5 more days to prevent possibility of further reinfection Medication sent electronically to [facility] [address] [place] [id number] upcoming outpatient appointments 10/22/2019 10:20 AM Provider Rowan Leos DO Department [facility] 11/02/2019 2:15 PM Provider Enzo Houtson MD Department Otolaryngology/Head & Neck/Facial Plastic Surgery Pending Studies at Discharge: Yes Stand-Alone Forms: My [facility] [place], Smoking Cessation Medications and DC Order Prescriptions: New cephalexin 500 mg Capsule 500 mg PO Q6H 5 Days Qty: 20 RF: 0 Continued nitroglycerin 0.4 mg tablet, sublingual 0.4 mg SL UD RF: 0 (DME) Oxygen Home Liters Per Minute See Dose Instructions .ROUTE .MEDSUPPLY Qty: 1 RF: 0 ipratropium-albuterol 0.5 mg-3 mg(2.5 mg base)/3 mL solution for nebulization 3 ml inhalation Q4H Qty: 3 RF: 0 levothyroxine 175 mcg capsule 175 mcg PO QAM RF: 0 atorvastatin 20 mg Tablet 20 mg PO HS RF: 0 albuterol sulfate 2.5 mg /3 mL (0.083 %) Solution For Nebulization 2.5 mg INHALATION QID RF: 0 aspirin [Aspirin Low Dose] 81 mg Tablet,Delayed Release (Dr/Ec) 81 mg PO QAM RF: 0 albuterol sulfate [ProAir HFA] 90 mcg/actuation HFA aerosol inhaler 2 puff inhalation Q4H PRN (Reason: Shortness Of Breath) RF: 0 acidophilus-pectin, citrus [Acidophilus Probiotic] 100 million cell-10 mg Capsule 1 cap PO QAM RF: 0 Combivent Respimat 20-100 mcg/actuation Mist 1 puff INHALATION QID RF: 0 bupropion HCl 100 mg Tablet Sustained-Release 12 Hr 100 mg PO QAM RF: 0 desloratadine [Clarinex] 5 mg Tablet 5 mg PO HS RF: 0 docusate sodium 100 mg Capsule 100 mg PO BID RF: 0 folic acid 1 mg Tablet 1 mg PO QAM RF: 0 Humalog U-100 Insulin 100 unit/mL Cartridge 400 unit continuous subcutaneous infusion DIRECTED RF: 0 multivitamin Tablet 1 tab PO QAM RF: 0 acetaminophen [Tylenol Extra Strength] 500 mg Tablet 500 mg PO Q6H PRN (Reason: Pain) RF: 0 spironolactone 25 mg Tablet 25 mg PO QAM RF: 0 isosorbide mononitrate 60 mg Tablet Extended Release 24 Hr 60 mg PO QAM RF: 0 pantoprazole 40 mg Tablet,Delayed Release (Dr/Ec) 40 mg PO QAM RF: 0 topiramate 100 mg Tablet 100 mg PO QAM RF: 0 topiramate 100 mg Tablet 200 mg PO HS RF: 0 metoprolol tartrate 25 mg Tablet 12.5 mg PO BID RF: 0 potassium chloride 20 mEq Tablet Extended Release 20 meq PO QAM RF: 0 bupropion HCl 100 mg tablet sustained-release 12 hr 200 mg PO HS RF: 0 torsemide 20 mg tablet 20 mg PO BID RF: 0 lorazepam [Ativan] 1 mg Tablet 1 mg PO Q8H PRN (Reason: Anxiety) RF: 0 Discontinued azithromycin 250 mg Tablet 250 mg PO MOWEFR RF: 0 clotrimazole-betamethasone [Lotrisone] 1-0.05 % Cream 1 applic TOPICAL BID RF: 0 betamethasone dipropionate 0.05 % cream 1 applic topical BID RF: 0 clotrimazole 1 % Cream 1 applic TOPICAL BID RF: 0 ketoconazole 2 % Cream 1 applic TOPICAL BID RF: 0 Discharge Orders: Discharge Order (Routine); Ordered 10/18/19 Ordered By: Ranulfo Lane Admission Data Admit Date/Time: 10/14/19 15:57 Attending Provider: Ranulfo Lane Admit Provider: Lele Sosa Primary Care Provider: Rowan Leos Other Providers: Lele Sosa
[2019-10-18] MEDS ORDERED: cephALEXin 500 MG CAP PO SCH (17:00)
--- NOTE | 2019-10-25 10:42 | Coding Query ---
SEPSIS There is documentation of both suspected Bacteremia and possible Sepsis on Discharge Summary. Please Specify below, in your clinical opinion. To promote full compliance with coding requirements relating to patient care, physician participation is requested in all cases of charcoal [employer]ehive [employer] uncertainty. Please assist us with the question(s) below: In responding to this query, please exercise your independent professional judgement. The fact that a question is asked does not imply that any particular answer is desired or expected. We appreciate your clarification on this issue. Throughout the medical record, you have clearly documented a localized infection and your patient has clinical evidence of a generalized sepsis or severe sepsis. The term urosepsis is a nonspecific entity and is coded as an UTI. If the patient has sepsis, severe sepsis, from an urinary source or some other source, please clarify in your response below. The medical record reflects the following clinical findings: (With dates as appropriate) (Body temperature of >38.3 C(101 F) or <36 C(96.8F), pulse >90/minute, respirations >20/minute, WBC count >12,000 or <4,000, altered mental status, significant edema or positive fluid balance, hyperglycemia without diabetes, hypotension, metabolic acidosis (elev. lactate level, anion gap or reduced blood pH), shock, positive blood culture (enter organism) ____ (x)Bacteremia (Nonspecific laboratory finding of bacteria in the blood) Specify Organism : Coag neg staph not lugdunensis (x) Present on Admission () Not present on admission () Unable to clinically determine (x) Septicemia (Systemic disease associated with the presence of pathogenic microorganisms in the blood): Specify Organism (x) Present on Admission () Not present on admission () Unable to clinically determine () Sepsis Specify Organism Specify Associated Condition/Diagnosis () Present on Admission () Not present on admission () Unable to clinically determine () Severe Sepsis (Sepsis associated with acute organ dysfunction) Specify Organism Specify Associated Condition/Diagnosis () Present on Admission () Not present on admission () Unable to clinically determine () Septic Shock (Severe sepsis with acute circulatory failure, unexplained by other causes) () Present on Admission () Not present on admission () Unable to clinically determine () Other, patient has: MTDD
== END 2019-10-18 17:55 | disposition home or self-care (01) | DRG 871 ==
LOC: ED 11:39 → SUATTDRO 15:57 → 2E 15:57 → 2W 10-15 14:20

== ENCOUNTER 2021-04-14 16:28 | Inpatient (IN) ==
[2021-04-14] MEDS ORDERED: ALBUT/IPRATROP 3MG/0.5MG NEB 3 ML VIAL INH STA (16:48)
[2021-04-14] MEDS ORDERED: metOLazone 2.5 MG TABLET PO ONE (16:50)
[2021-04-14 17:22] LABS: Basophils # (auto) 0.02 K/uL (0-0.2); Basophils % (auto) 0.2 %; Eosinophils # (auto) 0.14 K/uL (0-0.5); Eosinophils % (auto) 1.3 %; Hematocrit (blood only) 37.9 % (37-47); Hemoglobin 11.5 g/dL (12.0-16.0); Immature Granulocytes # (auto) 0.05 K/uL (0.00-0.02); Immature Granulocytes % (auto) 0.5 %; Lymphocytes % (auto) 15.5 %; Mean Corpuscular Hemoglobin 28.3 pg (25-34); Mean Corpuscular Hgb Conc 30.3 g/dL (32-36); Mean Corpuscular Volume 93.3 fL (80-100); Mean Platelet Volume 10.2 fL (7.4-10.4); Monocytes # (auto) 0.91 K/uL (0.11-0.59); Monocytes % (auto) 8.3 %; Neutrophils # (auto) 8.13 K/uL (1.4-6.5); Neutrophils % (auto) 74.2 %; Platelet Count 258 K/uL (130-400); RDW Coefficient of Variation 15.3 % (11.5-14.5); Red Blood Count 4.06 M/uL (4.2-5.4); White Blood Count 10.95 K/uL (4.8-10.8)
--- NOTE | 2021-04-14 17:27 | XRay Report ---
XR chest 1V portable CLINICAL HISTORY: Chest pain and shortness of breath COMPARISON STUDY: 10/14/2019 FINDINGS: The heart remains enlarged. A tracheostomy tube is visualized. There is no failure. There i s no focal pulmonary consolidation. There are no significant pleural effusions.[ IMPRESSION: Cardiomegaly. No evidence of focal pulmonary consolidation ACT 112: Negative or not required by law. Electronically signed by: Dariel Chandler M.D. 04/14/2021 5:26 PM
--- NOTE | 2021-04-14 17:36 | Emergency Department Note ---
Impression & Plan Fluid overload, CHF (congestive heart failure), Chest pain, Breathlessness, Pain and swelling of right lower extremity, Pain and swelling of left lower extremity, Ambulatory dysfunction ED Provider Note Provider: Javid Naylor MD DATE OF SERVICE: 04/14/2021 CHIEF COMPLAINT: Chest pain, shortness of breath, leg pain and swelling, difficulty ambulating HISTORY OF PRESENT ILLNESS: Patient is a 65-year-old female with a past medical history including type 2 diabetes, tracheostomy, COPD with nightly oxygen, hypertension, hypothyroidism, CHF with right ventricular dysfunction presenting today via ambulance from home reporting that she started to feel ill last night. States last night felt weak and noted pain in her bilateral legs to the lower thighs. Noticed swelling here is unable to ambulate to the bathroom. States she also felt some slight chest discomfort as well as some shortness of breath. Used her inhaler at home with minimal improvement. Patient states she called her office technology instructor today who got back to this afternoon and recommended she come here for evaluation. Patient states has been able to ambulate since last night but denies any falls. Denies any abdominal pain or nausea. States her pain was a 5 out of 10 earlier but reduced to a 3 out of 10 after some aspirin and 2 doses of nitroglycerin for EMS. States she has a slight cough and feels again slightly short of breath. Denies significant back pain. Patient states she feels pain in the bilateral legs and some swelling here. Has been taking her home diuretics and follows with [facility] cardiology. Patient states he has completed 2 doses of the Covid vaccine. Patient states she is been able to ambulate and normally does not have an issue with this. She is unsure quite with going on and denies sick contact. Denies any upper extremity issues. REVIEW OF SYSTEMS: A total of 10 review of systems was obtained and negative except as stated above in the HPI. PAST MEDICAL HISTORY: As noted above MEDICATIONS: Reviewed home medication list include metolazone and torsemide SOCIAL HISTORY: Lives at home, former smoker PHYSICAL EXAM: GENERAL: alert and oriented in no acute distress on stretcher Head: normocephalic and atraumatic EYES: No injection, discharge or icterus. NECK: Trachea midline. Metal tracheostomy in place on the anterior neck without significant bleeding or discharge noted. ENT: Mucous membranes pink and moist. LUNGS: Airway patent. No retractions. Breath sounds diminished in the bases with faint expiratory wheeze bilaterally. HEART: Regular rate and rhythm. No chest wall tenderness ABDOMEN: Soft and non-tender, without guarding or rebound. SKIN: Acyanotic, warm, dry, without rashes EXTREMITIES: Patient reports his pain and some tenderness the bilateral feet to wards the distal to mid thigh bilaterally. Reports some swelling here as well. Noted little bit of redness prickly of the left harrell. States she has been following with a office technology instructor and her right great toenail was totally removed and her left great toenail was partially removed several weeks ago. Week bilateral DP pulses palpated. NEUROLOGICAL: No focal deficits. No aphasia. No facial droop or slurred speech. EK bpm normal sinus rhythm with PAC. No acute ST segment elevation or depression with right bundle branch block and left axis. QTC 488. Lead III, V1, V2, and V3 T wave inversions noted. Compared to previous from October 152018 now with PAC but otherwise no significant change. CONTINUOUS CARDIAC MONITORING: was ordered and showed a heart rate of 70s to 80s bpm in normal sinus rhythm rare PAC Patient's laboratory studies and imaging reviewed. Differential includes Infection, dehydration, metabolic abnormality, hypo/hyperglycemia, electrolyte disturbance, anemia, hypoxia, cardiac sources, intracerebral event, toxicologic, neurologic, as well as other pathologies. IMPRESSION/MEDICAL DECISION MAKING: Patient is complaining of a chest pressure and shortness of breath but primary complaint is related to ambulatory dysfunction and swelling and pain in bilater al legs. No trauma reported. Given the swelling ultrasound complete without evidence of DVT. Does not seem that consistent with cellulitis. EKG without acute changes and troponin is undetectable lower suspicion for acute ACS. Not hypoxic here but does have a little bit of tachypnea. Lower suspicion and given her renal function will defer CTA at this time for PE. Given a DuoNeb as she is slightly wheezy with minimal change in respiratory status. Not in any respiratory distress. Fluid overload is primary mobile lounge driver of her leg swelling and pain. Given Lasix in addition metolazone here to help with some diuresis. Given some fentanyl here for pain. Chest x-ray does not show focal evidence of pneumonia. Covid test was sent. Given ambulatory dysfunction and what appears to be need for some diuresis and respiratory issues as well as significant comorbidities will discuss with the hospitalist for further observation here in the hospital. DIAGNOSIS: Chest pain, leg pain, leg swelling, fluid overload, ambulatory dysfunction, shortness of breath, CHF exacerbation DISPOSITION: Hospitalist will evaluate for further care here Patient was agreeable with this plan. Past Med/Surg History Medical History (Updated 04/14/21 @ 23:57 by Javid Naylor M.D.) Anxiety Bronchiectasis CHF (congestive heart failure) Chronic respiratory failure CKD (chronic kidney disease), stage III COPD (chronic obstructive pulmonary disease) DM type 2 (diabetes mellitus, type 2) Dyslipidemia HTN (hypertension) Hypothyroid Hypoventilation associated with obesity Insulin-requiring or dependent type II diabetes mellitus Migraine MRSA (methicillin resistant staph aureus) culture positive "sputum 11/2015" Right ventricular dysfunction Sepsis Tracheostomy in place Surgical History History of appendectomy History of cholecystectomy History of hysterectomy History of tonsillectomy and adenoidectomy S/P IVC filter Family History Mother Coronary heart disease COPD (chronic obstructive pulmonary disease) Father Suicide Hung himself. Pt found him. Unknown Lung cancer Social History Smoking Status: Never smoker Second Hand Exposure: No; Hx Alcohol Use: No Hx Substance Use: No Preferred Language: Taiwanese Communication Ability: Effective Sliver Cutter Required: No Beliefs That Will Affect Care: None marital status: Current Living Situation: Family Current Living Situation Comment: Lives with Daughter current occupational status: disabled Other Information That Helps Us Care for You: No Feels Safe at Home: Yes Safety Concerns: Feels Safe At This Time Assistive Devices: Glasses and Walker Assistive Devices Comment: Tracheostomy Allergies Allergies Allergy/AdvReac Type Severity Reaction Status Date / Time amitriptyline Allergy Unknown ` Verified 04/14/21 19:34 gabapentin Allergy Unknown ` Verified 04/14/21 19:34 guaifenesin Allergy Unknown Unknown Verified 04/14/21 19:34 metformin Allergy Unknown ` Verified 04/14/21 19:34 Penicillins Allergy Unknown ` Verified 04/14/21 19:34 phenylephrine Allergy Unknown Unknown Verified 04/14/21 19:34 pseudoephedrine Allergy Unknown ` Verified 04/14/21 19:34 tetracycline Allergy Unknown ` Verified 04/14/21 19:34 doxycycline Allergy Unknown Verified 04/14/21 19:34 venlafaxine [From Effexor] Allergy Unknown Verified 04/14/21 19:34 Home Meds Home Medications Medication Instructions Recorded Confirmed Combivent Respimat 1 puff INHALATION QID 04/06/19 04/14/21 aspirin [Aspirin Low Dose] 81 mg PO QAM 04/06/19 04/14/21 bupropion HCl 300 mg PO DAILY 04/06/19 04/14/21 desloratadine [Clarinex] 5 mg PO HS 04/06/19 04/14/21 docusate sodium 100 mg PO BID 04/06/19 04/14/21 folic acid 1 mg PO QAM 04/06/19 04/14/21 isosorbide mononitrate 60 mg PO QAM 04/06/19 04/14/21 metoprolol tartrate 12.5 mg PO BID 04/06/19 04/14/21 multivitamin 1 tab PO QA 04/06/19 04/14/21 pantoprazole 40 mg PO QAM 04/06/19 04/14/21 spironolactone 25 mg PO QAM 04/06/19 04/14/21 topiramate 100 mg PO QAM 04/06/19 04/14/21 topiramate 200 mg PO 04/06/19 04/14/21 Oxygen Home #1 ea 06/28/19 02/25/21 nitroglycerin 0.4 mg sublingual 0.4 mg SL UD tab 06/28/19 04/14/21 tablet lorazepam [Ativan] 1 mg PO Q8H PRN 10/14/19 04/14/21 torsemide See Rx Instructions .ROUTE .COMPLEX 10/14/19 04/14/21 insulin lispro 100 unit/mL 0 unit SUBCUT DAILY ml 01/27/21 04/14/21 subcutaneous solution betamethasone dipropionate 1 applic TOPICAL BID PRN 02/27/21 04/14/21 clotrimazole 1 applic TOPICAL BID 02/27/21 04/14/21 ipratropium-albuterol [DuoNeb] 3 ml INHALATION QID PRN 02/27/21 04/14/21 ketoconazole 1 applic TOPICAL BID 02/27/21 04/14/21 lisinopril 2.5 mg PO DAILY 02/27/21 04/14/21 loratadine 10 mg PO DAILY 02/27/21 04/14/21 metolazone 2.5 mg PO UD 02/27/21 04/14/21 potassium chloride See Rx Instructions .ROUTE .COMPLEX 02/27/21 04/14/21 Previous Rx's Medication Instructions Recorded albuterol sulfate 90 mcg/actuation 2 puff INHALATION Q4H PRN #18 gm 12/03/20 aerosol inhaler atorvastatin 40 mg tablet 40 mg PO QPM #30 tab 12/23/20 nebulizers #1 ea 12/24/20 montelukast 10 mg tablet 10 mg PO QPM #30 tab 01/07/21 levothyroxine 200 mcg tablet 200 mcg PO DAILY #30 tab 01/29/21 azithromycin 250 mg tablet 250 mg PO MOWEFR #12 tab 03/10/21 Results & Data (ED) Vital Signs Vital Signs - 24 hr 04/14/21 16:33 04/14/21 16:39 04/14/21 16:40 Temperature Temperature Source Pulse Rate 86 82 83 Pulse Rate [Finger] Pulse Rate from SpO2 Sensor 83 85 84 Respiratory Rate 21 24 23 Respiratory Effort / Characteristics Respiratory Depth Respiratory Pattern Blood Pressure 137/62 Blood Pressure [Left Arm] Blood Pressure Mean 87 Blood Pressure Mean [Left Arm] Pulse Oximetry 93 94 93 Oxygen Delivery Method Sepsis Recent Fever Within 48 Hours Sepsis New/Unexplained Change in Mental Status Sepsis Action Taken by Nursing 04/14/21 16:45 04/14/21 16:48 04/14/21 16:50 Temperature 37.2 C Temperature Source Oral Pulse Rate 82 87 Pulse Rate [Finger] Pulse Rate from SpO2 Sensor 80 Respiratory Rate 30 H 29 H Respiratory Effort / Characteristics Spontaneous Short of Breath Respiratory Depth Shallow Respiratory Pattern Tachypnea Blood Pressure 137/62 Blood Pressure [Left Arm] Blood Pressure Mean 87 Blood Pressure Mean [Left Arm] Pulse Oximetry 95 91 92 Oxygen Delivery Method Room Air Room Air Sepsis Recent Fever Within 48 Hours No Sepsis New/Unexplained Change in Mental Status No Sepsis Action Taken by Nursing No Action Required 04/14/21 17:00 04/14/21 17:01 04/14/21 17:10 Temperature Temperature Source Pulse Rate 83 83 81 Pulse Rate [Finger] Pulse Rate from SpO2 Sensor 88 78 72 Respiratory Rate 19 32 H 27 H Respiratory Effort / Characteristics Respiratory Depth Respiratory Pattern Blood Pressure 120/48 L Blood Pressure [Left Arm] Blood Pressure Mean 72 Blood Pressure Mean [Left Arm] Pulse Oximetry 91 91 91 Oxygen Delivery Method Sepsis Recent Fever Within 48 Hours Sepsis New/Unexplained Change in Mental Status Sepsis Action Taken by Nursing 04/14/21 17:20 04/14/21 17:30 04/14/21 17:34 Temperature Temperature Source Pulse Rate 79 81 Pulse Rate [Finger] 82 Pulse Rate from SpO2 Sensor 79 76 Respiratory Rate 24 23 Respiratory Effort / Characteristics Spontaneous Labored Short of Breath SOB on Exertion Respiratory Depth Respiratory Pattern Blood Pressure 100/70 Blood Pressure [Left Arm] Blood Pressure Mean 80 Blood Pressure Mean [Left Arm] Pulse Oximetry 91 92 95 Oxygen Delivery Method Room Air Sepsis Recent Fever Within 48 Hours Sepsis New/Unexplained Change in Mental Status Sepsis Action Taken by Nursing 04/14/21 17:40 04/14/21 17:50 04/14/21 18:00 Temperature Temperature Source Pulse Rate 80 76 76 Pulse Rate [Finger] Pulse Rate from SpO2 Sensor 81 81 77 Respiratory Rate 19 23 29 H Respiratory Effort / Characteristics Respiratory Depth Respiratory Pattern Blood Pressure Blood Pressure [Left Arm] Blood Pressure Mean Blood Pressure Mean [Left Arm] Pulse Oximetry 94 94 92 Oxygen Delivery Method Sepsis Recent Fever Within 48 Hours Sepsis New/Unexplained Change in Mental Status Sepsis Action Taken by Nursing 04/14/21 18:01 04/14/21 18:10 04/14/21 18:20 Temperature Temperature Source Pulse Rate 80 76 87 Pulse Rate [Finger] Pulse Rate from SpO2 Sensor 74 75 73 Respiratory Rate 27 H 25 H 31 H Respiratory Effort / Characteristics Respiratory Depth Respiratory Pattern Blood Pressure 119/66 Blood Pressure [Left Arm] Blood Pressure Mean 83 Blood Pressure Mean [Left Arm] Pulse Oximetry 93 94 93 Oxygen Delivery Method Sepsis Recent Fever Within 48 Hours Sepsis New/Unexplained Change in Mental Status Sepsis Action Taken by Nursing 04/14/21 19:20 04/14/21 20:16 Temperature Temperature Source Pulse Rate Pulse Rate [Finger] 85 82 Pulse Rate from SpO2 Sensor Respiratory Rate 28 H 28 H Respiratory Effort / Characteristics Respiratory Depth Respiratory Pattern Blood Pressure Blood Pressure [Left Arm] 97/61 L 128/107 H Blood Pressure Mean Blood Pressure Mean [Left Arm] 73 114 Pulse Oximetry 92 94 Oxygen Delivery Method Sepsis Recent Fever Within 48 Hours Sepsis New/Unexplained Change in Mental Status Sepsis Action Taken by Nursing Laboratory Data Result diagrams: 04/14/21 16:40 04/14/21 16:40 Lab Results 04/14/21 04/14/21 04/14/21 Range/Units 16:40 16:40 18:09 WBC 10.95 H (4.8-10.8) K/uL RBC 4.06 L (4.2-5.4) M/uL Hgb 11.5 L (12.0-16.0) g/dL Hct 37.9 (37-47) % MCV 93.3 (80-100) fL MCH 28.3 (25-34) pg MCHC 30.3 L (32-36) g/dL RDW Std Deviation 52.0 H (36.4-46.3) fL RDW Coeff of Amee 15.3 H (11.5-14.5) % Plt Count 258 (130-400) K/uL MPV 10.2 (7.4-10.4) fL Immature Gran % (Auto) 0.5 % Neut % (Auto) 74.2 % Lymph % (Auto) 15.5 % Bill[place] % (Auto) 8.3 % Eos % (Auto) 1.3 % Baso % (Auto) 0.2 % Neut # (Auto) 8.13 H (1.4-6.5) K/uL Lymph # (Auto) 1.70 (1.2-3.4) K/uL [place] # (Auto) 0.91 H (0.11-0.59) K/uL Eos # (Auto) 0.14 (0-0.5) K/uL Baso # (Auto) 0.02 (0-0.2) K/uL Immature Gran # (Auto) 0.05 H (0.00-0.02) K/uL PT (9.0-12.0) Seconds INR (0.9-1.1) APTT (21.0-31.0) Seconds PTT Ratio Sodium 140 (136-145) mmol/L Potassium 4.1 (3.5-5.1) mmol/L Chloride 107 (98-107) mmol/L Carbon Dioxide 27 (21-32) mmol/L Anion Gap 6.0 (3-11) BUN 23 H (7-18) mg/dl Creatinine 1.42 H (0.6-1.2) mg/dl Est Cr Clr Drug Dosing 63.8 ml/min Est GFR ( Amer) 45.1 ml/min Est GFR (Non-Af Amer) 38.9 ml/min BUN/Creatinine Ratio 16.4 (10-20) Glucose 228 H (70-99) mg/dl Calcium 8.8 (8.5-10.1) mg/dl Magnesium 2.5 H (1.8-2.4) mg/dl Total Bilirubin 0.6 (0.2-1) mg/dl AST 22 (15-37) U/L ALT 33 (12-78) U/L Alkaline Phosphatase 87 (45-117) U/L Troponin I < 0.015 (0-0.045) ng/ml NT-Pro-B Natriuret Pep 387 (0-900) pg/ml Total Protein 7.6 (6.4-8.2) gm/dl Albumin 2.8 L (3.4-5.0) gm/dl Globulin 4.8 H (2.5-4.0) gm/dl Albumin/Globulin Ratio 0.6 L (0.9-2) TSH 1.380 (0.300-4.500) uIu/ml COVID-19 Eval Order Covid19 at [facility] SARS-CoV-2 (PCR) (Negative) 04/14/21 04/14/21 Range/Units 18:09 18:54 WBC (4.8-10.8) K/uL RBC (4.2-5.4) M/uL Hgb (12.0-16.0) g/dL Hct (37-47) % MCV (80-100) fL MCH (25-34) pg MCHC (32-36) g/dL RDW Std Deviation (36.4-46.3) fL RDW Coeff of Amee (11.5-14.5) % Plt Count (130-400) K/uL MPV (7.4-10.4) fL Immature Gran % (Auto) % Neut % (Auto) % Lymph % (Auto) % [place] % (Auto) % Eos % (Auto) % Baso % (Auto) % Neut # (Auto) (1.4-6.5) K/uL Lymph # (Auto) (1.2-3.4) K/uL Bill[place] # (Auto) (0.11-0.59) K/uL Eos # (Auto) (0-0.5) K/uL Baso # (Auto) (0-0.2) K/uL Immature Gran # (Auto) (0.00-0.02) K/uL PT 10.3 (9.0-12.0) Seconds INR 1.0 (0.9-1.1) APTT 21.0 (21.0-31.0) Seconds PTT Ratio 0.8 Sodium (136-145) mmol/L Potassium (3.5-5.1) mmol/L Chloride (98-107) mmol/L Carbon Dioxide (21-32) mmol/L Anion Gap (3-11) BUN (7-18) mg/dl Creatinine (0.6-1.2) mg/dl Est Cr Clr Drug Dosing ml/min Est GFR ( Amer) ml/min Est GFR (Non-Af Amer) ml/min BUN/Creatinine Ratio (10-20) Glucose (70-99) mg/dl Calcium (8.5-10.1) mg/dl Magnesium (1.8-2.4) mg/dl Total Bilirubin (0.2-1) mg/dl AST (15-37) U/L ALT (12-78) U/L Alkaline Phosphatase (45-117) U/L Troponin I (0-0.045) ng/ml NT-Pro-B Natriuret Pep (0-900) pg/ml Total Protein (6.4-8.2) gm/dl Albumin (3.4-5.0) gm/dl Globulin (2.5-4.0) gm/dl Albumin/Globulin Ratio (0.9-2) TSH (0.300-4.500) uIu/ml COVID-19 Eval Order SARS-CoV-2 (PCR) NEGATIVE (Negative) Administered Medications Discontinued Medications Albuterol (Albut/Ipratrop 3mg/0.5mg Neb 3 Ml Vial) 3 ml INH NOW STA Stop: 04/14/21 16:49 Last Admin: 04/14/21 17:33 Dose: 3 ml Documented by: [id number] Fentanyl Citrate (Fentanyl Citrate 100 Mcg/2 Ml Vial) 50 mcg IV NOW STA Stop: 04/14/21 18:48 Last Admin: 04/14/21 19:07 Dose: 50 mcg Documented by: [id number] Furosemide (Furosemide 40 Mg/4 Ml Vial) 20 mg IV NOW STA Stop: 04/14/21 17:56 Last Admin: 04/14/21 18:51 Dose: 20 mg Documented by: [id number] Metolazone (Metolazone 2.5 Mg Tablet) 2.5 mg PO NOW ONE Stop: 04/14/21 16:51 Last Admin: 04/14/21 18:51 Dose: 2.5 mg Documented by: [id number] Imaging Data Radiologist's Impression: Chest X-Ray 04/14/21 16:48 XR chest 1V portable CLINICAL HISTORY: Chest pain and shortness of breath COMPARISON STUDY: 10/14/2019 FINDINGS: The heart remains enlarged. A tracheostomy tube is visualized. There is no failure. There is no focal pulmonary consolidation. There are no significant pleural effusions.[ IMPRESSION: Cardiomegaly. No evidence of focal pulmonary consolidation ACT 112: Negative or not required by law. Electronically signed by: Dariel Chandler M.D. 04/14/2021 5:26 PM Venous Doppler Study 04/14/21 16:48 US venous doppler LE BI CLINICAL HISTORY: Dyspnea, leg swelling COMPARISON STUDY: 02/27/2021 FINDINGS: Grayscale, color-flow, Doppler spectral waveform analysis was performed. The study was limited from a technical standpoint due to the patient's obesity and inability to cooperate with positioning. No thrombus is visualized within the common femoral superficial femoral or popliteal veins bilaterally. The calf veins were poorly visualized. IMPRESSION: 1. Moderately limited study from a technical standpoint 2. No evidence of lower extremity DVT. ACT 112: Negative or not required by law. Electronically signed by: Dariel Chandler M.D. 04/14/2021 6:43 PM Discharge Plan Visit Data Chief Complaint: Shortness of Breath/Dyspnea Stated Complaint: CHEST PAIN ED Provider: Javid Naylor Discharge Problem: Fluid overload, CHF (congestive heart failure), Chest pain, Breathlessness, Pain and swelling of right lower extremity, Pain and swelling of left lower extremity, Ambulatory dysfunction Patient Disposition: Admitted As Inpatient Discharge Instructions Interventions: ED Discharge Assessment Last Done: 04/14/21 22:13 Discharge Problem: Fluid overload Qualifiers: Hypervolemia type: unspecified Qualified Code(s): E87.70 - Fluid overload, unspecified CHF (congestive heart failure) Qualifiers: Heart failure type: right-sided Heart failure chronicity: acute on chronic Qualified Code(s): I50.813 - Acute on chronic right heart failure Chest pain Qualifiers: Chest pain type: unspecified Qualified Code(s): R07.9 - Chest pain, unspecified
[2021-04-14 17:39] LABS: Alanine Aminotransferase 33 U/L (12-78); Albumin Level 2.8 gm/dl (3.4-5.0); Aspartate Aminotransferase 22 U/L (15-37); BUN Creatinine Ratio 16.4 (10-20); Blood Urea Nitrogen 23 mg/dl (7-18); Calcium 8.8 mg/dl (8.5-10.1); Carbon Dioxide 27 mmol/L (21-32); Chloride 107 mmol/L (98-107); Creatinine Clr Calc Pharmacy 63.8 ml/min; Est GFR (African American) 45.1 ml/min; Est GFR (Non-African American) 38.9 ml/min; Glucose 228 mg/dl (70-99); Magnesium 2.5 mg/dl (1.8-2.4); Potassium 4.1 mmol/L (3.5-5.1); Sodium 140 mmol/L (136-145)
[2021-04-14 17:50] LABS: Albumin Globulin Ratio 0.6 (0.9-2); Alkaline Phosphatase 87 U/L (45-117); Bilirubin,Total 0.6 mg/dl (0.2-1); Globulin 4.8 gm/dl (2.5-4.0); NT Pro B Type Natriuretic Pept 387 pg/ml (0-900); Total Protein 7.6 gm/dl (6.4-8.2); Troponin I < 0.015 ng/ml (0-0.045)
[2021-04-14] MEDS ORDERED: FUROSEMIDE 40 MG/4 ML VIAL IV STA (17:55)
--- NOTE | 2021-04-14 18:44 | Ultrasound Report ---
US venous doppler LE BI CLINICAL HISTORY: Dyspnea, leg swelling COMPARISON STUDY: 02/27/2021 FINDINGS: Grayscale, color-flow, Doppler spectral waveform analysis was performed. The study was limi katie from a technical standpoint due to the patient's obesity and inability to cooperate with position ing. No thrombus is visualized within the common femoral superficial femoral or popliteal veins bilat erally. The calf veins were poorly visualized. IMPRESSION: 1. Moderately limited study from a technical standpoint 2. No evidence of lower extremity DVT. ACT 112: Negative or not required by law. Electronically signed by: Dariel Chandler M.D. 04/14/2021 6:43 PM
[2021-04-14] MEDS ORDERED: fentaNYL citrate 100 MCG/2 ML VIAL IV STA (18:47)
[2021-04-14 19:15] LABS: Partial Thromboplastin Ratio 0.8; Prothrombin Time 10.3 Seconds (9.0-12.0)
--- NOTE | 2021-04-14 20:51 | History & Physical Report ---
Date of Service April 14, 2021 Assessment & Plan (1) Chronic diastolic congestive heart failure: Patient is a 65 year old female with PMHx CHF, COPD, CKD stage 3, HLD, HTN, Hypothyroidism, Anxiety, that presents with 2 day history of worsening shortness of breath and crushing sternal chest pain in addition to bilateral foot pain s/p nail removal 2-3 months ago. Shortness of Breath -?COPD exacerbation vs. CHF exacerbation -Diuresed in ED to good effect -BNP not elevated at this time at 421 -Patient noting never having smoked, will check [id number] for COPD -Continue Duoneb and Albuterol PRN -Continue Atrovent -Continue Singulair -Continue Claritin -Continue diuretics Spironolactone, Torsemide -Takes Metolazone once a week, recieved in ED on admission -Daily weights -Monitor I/O's -Continue Trach care Chest pain -Troponin not elevated -EKG showing RBBB which has been present since previous EKG 10/15/19. -Will order repeat EKG in AM -Continue ASA -Echo in AM B/L Foot Pain -Toes at this time do not appear overtly infected -Pulses of feet b/l difficult to feel, though exam limited from swelling and body habitus -No obvious trauma or inciting injury -Will order for Arterial duplex of legs b/l to ensure patency -Venous dopplers negative for DVT -Wound nurse consulted Depression/Anxiety -Continue home Bupropion -Hold Ativan at this time. Patient not noting increased anxiety. Chronic Headaches -Continue home topiramate Hypothyroidism -Continue Levothyroxine HTN -Continue Lisinopril -Continue metoprolol -Continue isosorbide mononitrate GERD -Continue Pantoprazole Dispo: Med/Surg telemetry for continuous monitoring, fluid balance, wound care FEN: HH diet, low sodium diet, fluid restrict 1800ml DVT: S/P IVF Filter Code: Full (2) Pain and swelling of right lower extremity: (3) Pain and swelling of left lower extremity: (4) Anxiety: (5) Chronic obstructive pulmonary disease: (6) Dyslipidemia: (7) Type 2 diabetes mellitus: History of Present Illness Chief Complaint: Shortness of Breath, Chest pain, B/L Foot pain Primary Care Provider: Ofe Mcgee MD Patient is a 65 year old female with PMHx CHF, COPD, CKD stage 3, HLD, HTN, Hypothyroidism, Anxiety, that presents with 2 day history of worsening shortness of breath and crushing sternal chest pain. She states that while these have been most recently, the issue that she felt she needed to come in for was in regards to her b/l foot pain, L>R that had been ongoing for 2-3 months now after having removal of her nails from her big toes bilateral. Patient notes having increased SOB and SOB with exertion for the past 2 days in addition to what she describes as "crushing chest pain" on her sternum that improves dramatically with rest. She states that this seems to happen to her every year when "the pollen gets bad." She notes requiring increased amounts of her albuterol inhaler during these episodes which help as well. She has been afebrile at home with most recent temp 98F, though subjectively feels hot. She also notes that she has been having ongoing b/l foot pain since having her big toe nails of both feet removed (complete on R, partial on L). She states she has required antibiotic treatment x2 for these from her PCP with which she has noted improvement, but still is not entirely better. Today she presented by EMS for above complaints and on the way in was given ASA and 2 sublingual nitro which reduced her chest pain from 5 to 3/10. Currently patient denies any chest pain or SOB at rest. She is noting pain in her feet to palpation, but not at rest. She denies any abdominal discomfort, dizziness, headache, dysuria. Med Hx: CHF, COPD, CKD stage 3, HLD, HTN, Hypothyroidism, Anxiety Surg Hx: Tracheostomy, Appendectomy, Cholecystectomy, IVF filter Soc Hx: No tobacco, alcohol, illicit drug usage. Allergies Allergy/AdvReac Type Severity Reaction Status Date / Time amitriptyline Allergy Unknown ` Verified 04/14/21 19:34 gabapentin Allergy Unknown ` Verified 04/14/21 19:34 guaifenesin Allergy Unknown Unknown Verified 04/14/21 19:34 metformin Allergy Unknown ` Verified 04/14/21 19:34 Penicillins Allergy Unknown ` Verified 04/14/21 19:34 phenylephrine Allergy Unknown Unknown Verified 04/14/21 19:34 pseudoephedrine Allergy Unknown ` Verified 04/14/21 19:34 tetracycline Allergy Unknown ` Verified 04/14/21 19:34 doxycycline Allergy Unknown Verified 04/14/21 19:34 venlafaxine [From Effexor] Allergy Unknown Verified 04/14/21 19:34 Home Medications Medication Instructions Recorded Confirmed Type Combivent Respimat 1 puff INHALATION QID 04/06/19 04/14/21 History aspirin [Aspirin Low Dose] 81 mg PO QAM 04/06/19 04/14/21 History bupropion HCl 300 mg PO DAILY 04/06/19 04/14/21 History desloratadine [Clarinex] 5 mg PO HS 04/06/19 04/14/21 History docusate sodium 100 mg PO BID 04/06/19 04/14/21 History folic acid 1 mg PO QAM 04/06/19 04/14/21 History isosorbide mononitrate 60 mg PO QAM 04/06/19 04/14/21 History metoprolol tartrate 12.5 mg PO BID 04/06/19 04/14/21 History multivitamin 1 tab PO QAM 04/06/19 04/14/21 History pantoprazole 40 mg PO QAM 04/06/19 04/14/21 History spironolactone 25 mg PO QAM 04/06/19 04/14/21 History topiramate 100 mg PO QAM 04/06/19 04/14/21 History topiramate 200 mg PO HS 04/06/19 04/14/21 History Oxygen Home #1 ea 06/28/19 02/25/21 History nitroglycerin 0.4 mg sublingual 0.4 mg SL UD tab 06/28/19 04/14/21 History tablet lorazepam [Ativan] 1 mg PO Q8H PRN 10/14/19 04/14/21 History torsemide See Rx Instructions .ROUTE .COMPLEX 10/14/19 04/14/21 History albuterol sulfate 90 mcg/actuation 2 puff INHALATION Q4H PRN #18 gm 12/03/20 04/14/21 Rx aerosol inhaler atorvastatin 40 mg tablet 40 mg PO QPM #30 tab 12/23/20 04/14/21 Rx nebulizers #1 ea 12/24/20 02/25/21 Rx montelukast 10 mg tablet 10 mg PO QPM #30 tab 01/07/21 04/14/21 Rx insulin lispro 100 unit/mL 0 unit SUBCUT DAILY ml 01/27/21 04/14/21 History subcutaneous solution levothyroxine 200 mcg tablet 200 mcg PO DAILY #30 tab 01/29/21 04/14/21 Rx betamethasone dipropionate 1 applic TOPICAL BID PRN 02/27/21 04/14/21 History clotrimazole 1 applic TOPICAL BID 02/27/21 04/14/21 History ipratropium-albuterol [DuoNeb] 3 ml INHALATION QID PRN 02/27/21 04/14/21 History ketoconazole 1 applic TOPICAL BID 02/27/21 04/14/21 History lisinopril 2.5 mg PO DAILY 02/27/21 04/14/21 History loratadine 10 mg PO DAILY 02/27/21 04/14/21 History metolazone 2.5 mg PO UD 02/27/21 04/14/21 History potassium chloride See Rx Instructions .ROUTE .COMPLEX 02/27/21 04/14/21 History azithromycin 250 mg tablet 250 mg PO MOWEFR #12 tab 03/10/21 04/14/21 Rx Past Med/Surg History Medical History (Updated 04/15/21 @ 12:11 by Patrick Rashid) Anxiety Bronchiectasis CHF (congestive heart failure) Chronic respiratory failure CKD (chronic kidney disease), stage III COPD (chronic obstructive pulmonary disease) DM type 2 (diabetes mellitus, type 2) Dyslipidemia HTN (hypertension) Hypothyroid Hypoventilation associated with obesity Insulin-requiring or dependent type II diabetes mellitus Migraine MRSA (methicillin resistant staph aureus) culture positive "sputum 11/2015" Right ventricular dysfunction Sepsis Tracheostomy in place Surgical History History of appendectomy History of cholecystectomy History of hysterectomy History of tonsillectomy and adenoidectomy S/P IVC filter Family History Mother Coronary heart disease COPD (chronic obstructive pulmonary disease) Father Suicide Hung himself. Pt found him. Unknown Lung cancer Social History Smoking Status: Never smoker Second Hand Exposure: No; Hx Alcohol Use: No Hx Substance Use: No Preferred Language: Andorran Communication Ability: Effective Timber Inspector Required: No Beliefs That Will Affect Care: None marital status: Current Living Situation: Family Current Living Situation Comment: Lives with Daughter current occupational status: disabled Other Information That Helps Us Care for You: No Feels Safe at Home: Yes Safety Concerns: Feels Safe At This Time Assistive Devices: Glasses and Oxygen - at Night Assistive Devices Comment: Tracheostomy Review of Systems Review of Systems: All systems reviewed & are unremarkable except as noted in Subjective Physical Exam Constitutional: + morbidly obese and cooperative Eyes: PERRL, conjunctivae normal, anicteric sclerae ENMT: external ear and nose normal, oropharynx normal Neck: + tracheostomy present Respiratory: normal respiratory effort; no respiratory distress Auscultation: + diminished lung sounds and + wheezes Cardiovascular: Rate/Rhythm: regular rate and regular rhythm Extremities: + edema (1+ b/l ) Gastrointestinal (Abdomen): Inspection/Auscultation: normal bowel sounds and + significant pannus; abdomen not distended Abdominal wall excoriations and lesions that appear to have been picked at and scabbed over. Musculoskeletal: R foot with blackened scabbing where great toe nail would be present. TTP throughout all of the distal foot, without obvious erythema. L foot with blackened scabbing on the lateral aspect of the great toe nail. Again TTP throughought distal foot without obvious erythama Neurologic: PERRL, EOMI, accommodation nl, no face palsy, no dysarthria Psychiatric: A+Ox3, euthymic affect Results & Data Results & Data ([facility]) Vital Signs (Past 12 Hours) Vital Signs Temp Pulse Pulse Resp BP BP Pulse Ox 04/14/21 20:16 82 28 H 128/107 H 94 04/14/21 19:20 85 28 H 97/61 L 92 04/14/21 18:20 87 31 H 93 04/14/21 18:10 76 25 H 94 04/14/21 18:01 80 27 H 119/66 93 04/14/21 18:00 76 29 H 92 04/14/21 17:50 76 23 94 04/14/21 17:40 80 19 94 04/14/21 17:34 82 95 04/14/21 17:30 81 23 100/70 92 04/14/21 17:20 79 24 91 04/14/21 17:10 81 27 H 91 04/14/21 17:01 83 32 H 120/48 L 91 04/14/21 17:00 83 19 91 04/14/21 16:50 87 29 H 92 04/14/21 16:48 91 04/14/21 16:45 37.2 C 82 30 H 137/62 95 04/14/21 16:40 83 23 93 04/14/21 16:39 82 24 94 04/14/21 16:33 86 21 137/62 93 Supervising Physician Co-Signing Physician Notes Attending addendum: I have physically seen this patient, have supervised the medical residents activities, and agree with the H&P unless as otherwise noted. Assessment and Plan: Acute respiratory failure/chest pain- Combination of COPD exacerbation and CHF Acute on chronic HFpEF- The patient will be admitted to telemetry for serial cardiac enzymes, serial EKG's, cardiac rhythm monitoring and a 2-D echocardiogram with Dopplers. Given Lasix 20 mg IV in ED along with Zaroxolyn with good diuresis Follow serial laboratories COPD exacerbation- Continue Atrovent, Singulair, Claritin. Duonebs every 4 hours while awake and every 2 hours when necessary. Remaining orders and notations as noted Resident Activity Tracking Resident Involvement: Resident Care Provided Care Provided: Adult Hospital Medicine
[2021-04-14] MEDS ORDERED: ALBUT/IPRATROP 3MG/0.5MG NEB 3 ML VIAL INH PRN (23:22)
[2021-04-14] MEDS ORDERED: NITROGLYCERIN SL 0.4 MG/TAB TAB SL PRN (23:22)
[2021-04-14] MEDS ORDERED: IPRATROPIUM BROMIDE/ALBUTEROL respimat INH INH SCH (23:22)
[2021-04-14] MEDS ORDERED: ONDANSETRON INJ 2 MG/ML 2 ML VIAL IV PRN (23:22)
[2021-04-14] MEDS ORDERED: Albuterol HFA 8 GM Inhaler (Combivent Respimat P&T Subs) INH SCH (23:22)
[2021-04-15] MEDS ORDERED: PHARMACY GLYCEMIC MGMT CONSULT PRN (00:11)
[2021-04-15] MEDS: TORSEMIDE 20 MG TAB PO SCH ×3 (00:12→21:55)
[2021-04-15] MEDS: ATORVASTATIN 40 MG TAB PO SCH ×2 (00:14→21:54)
[2021-04-15] MEDS: MONTELUKAST SODIUM 10 MG TABLET PO SCH ×2 (00:14→21:55)
[2021-04-15] MEDS: TOPIRAMATE 100 MG TAB PO SCH ×3 (00:14→21:55)
[2021-04-15] MEDS: METOPROLOL TARTRATE 25 MG TAB PO SCH ×3 (00:15→21:54)
[2021-04-15] MEDS: HEPARIN SOD 5,000 UNIT/0.5 ML VIAL SQ SCH ×4 (00:45→21:55)
[2021-04-15] MEDS ORDERED: GLUCOSE 40% GEL 15 GM TUBE PO PRN (01:00)
[2021-04-15] MEDS ORDERED: GLUCOSE 10 TABS/TUBE PO PRN (01:00)
[2021-04-15] MEDS ORDERED: CARBOHYDRATES FOR HYPOGLYCEMIA PO PRN (01:00)
[2021-04-15] MEDS ORDERED: INSULIN HUMAN LISPRO (humaLOG) 100 UNITS/ML VIAL SC PRN ×2 (01:00→10:15)
[2021-04-15] MEDS ORDERED: DEXTROSE 50% 50 ML SYRINGE IV PRN (01:00)
[2021-04-15] MEDS ORDERED: GLUCAGON FOR INJ 1 MG VIAL SQ PRN (01:00)
[2021-04-15 01:10] LABS: Appearance Urine Clear (Clear); Bilirubin Urine Negative (Negative); Blood Urine Negative (Negative); Color Urine Yellow; Glucose Urine UA Negative (Negative); Ketones Urine Negative (Negative); Leukocyte Esterase Urine Negative (Negative); Nitrite Urine Negative (Negative); Protein Urine Negative (Negative); Specific Gravity Urine 1.012 (1.000-1.030); Urobilinogen Urine Negative (Negative)
[2021-04-15] MEDS ORDERED: INSULIN GLARGINE 100 UNIT/ML VIAL SC ONE (01:30)
[2021-04-15] MEDS: INSULIN ASPART 100 UNITS/ML VIAL SC SCH ×2 (03:11→09:05)
[2021-04-15] MEDS: Ipratropium HFA Inhaler (Combivent Respimat P&T Subs) INH SCH ×5 (04:15→19:56)
[2021-04-15] MEDS: LEVOTHYROXINE SODIUM 200 MCG TABLET PO SCH (05:42)
[2021-04-15 08:12] LABS: Basophils # (auto) 0.02 K/uL (0-0.2); Basophils % (auto) 0.2 %; Eosinophils # (auto) 0.11 K/uL (0-0.5); Hematocrit (blood only) 38.7 % (37-47); Hemoglobin 11.7 g/dL (12.0-16.0); Immature Granulocytes # (auto) 0.04 K/uL (0.00-0.02); Immature Granulocytes % (auto) 0.4 %; Lymphocytes # (auto) 1.56 K/uL (1.2-3.4); Lymphocytes % (auto) 14.2 %; Mean Corpuscular Hgb Conc 30.2 g/dL (32-36); Mean Corpuscular Volume 92.6 fL (80-100); Mean Platelet Volume 9.7 fL (7.4-10.4); Monocytes # (auto) 1.02 K/uL (0.11-0.59); Monocytes % (auto) 9.3 %; Neutrophils # (auto) 8.26 K/uL (1.4-6.5); Neutrophils % (auto) 74.9 %; Platelet Count 246 K/uL (130-400); RDW Coefficient of Variation 15.4 % (11.5-14.5); RDW Standard Deviation 52.2 fL (36.4-46.3); Red Blood Count 4.18 M/uL (4.2-5.4); White Blood Count 11.01 K/uL (4.8-10.8)
--- NOTE | 2021-04-15 08:28 | Ultrasound Report ---
ULTRASOUND US arterial duplex LE BI CLINICAL HISTORY: weak DP and TA pulses COMPARISON STUDY: None FINDINGS: Significantly limited study due to patient body habitus and pannus. No definite occlusion is seen and triphasic waveform are demonstrated in all vessels except calf brianne jyoti which are not well seen. IMPRESSION: No evidence of focal occlusion or significant stenosis on this limited exam. Electronically signed by: Sangita Zepeda DO 04/15/2021 8:27 AM
[2021-04-15 08:35] LABS: Estimated Average Glucose 212 mg/dl
[2021-04-15 08:41] LABS: Albumin Level 2.8 gm/dl (3.4-5.0); BUN Creatinine Ratio 14.9 (10-20); Calcium 9.3 mg/dl (8.5-10.1); Creatinine Clr Calc Pharmacy 47.9 ml/min; Est GFR (African American) 38.2 ml/min; Potassium 3.8 mmol/L (3.5-5.1)
[2021-04-15 08:44] LABS: Albumin Globulin Ratio 0.6 (0.9-2); Bilirubin,Total 0.9 mg/dl (0.2-1); Globulin 5.1 gm/dl (2.5-4.0); Total Protein 7.9 gm/dl (6.4-8.2)
[2021-04-15] MEDS: ASPIRIN 81 MG ECTAB PO SCH (09:06)
[2021-04-15] MEDS: PANTOprazole 40 MG TAB PO SCH (09:07)
[2021-04-15] MEDS: buPROPion SR 150 MG TABCR PO SCH (09:07)
[2021-04-15] MEDS: LORATADINE 10 MG TAB PO SCH (09:07)
[2021-04-15] MEDS: lisinopril 2.5 MG TAB PO SCH (09:07)
[2021-04-15] MEDS: SPIRONOLACTONE 25 MG TAB PO SCH (09:09)
[2021-04-15] MEDS: FOLIC ACID 1 MG TAB PO SCH (09:09)
[2021-04-15] MEDS: ISOSORBIDE MONO EXTENDED REL 60 MG TABCR PO SCH (09:09)
[2021-04-15] MEDS ORDERED: FUROSEMIDE 80 MG in SYRINGE 0 ML IV ONE (11:00)
[2021-04-15] MEDS: AZITHROMYCIN 250 MG TAB PO SCH (11:54)
--- NOTE | 2021-04-15 11:54 | Medical Student Progress Note ---
Date of Service April 15, 2021 Assessment & Plan (1) Pain and swelling of left lower extremity: Pt presented with pain and swelling in both the left and right lower extremity that was worsening 2 days prior to hospital admission. On examination, pain is reproducible with mild palpation up to the hips with pain improving moving from the feet to the hips. Both extremities show evidence of edema. Right big toe post-nail removal appears to be healing well with no evidence of infection. Considering pt has a history of chronic diastolic congestive heart failure with right ventricular dysfunction, ultrasound showed no evidence of DVT, examination showed no evidence of infection, and the pain and edema is bilateral, symptoms are most likely due to fluid overload secondary to congestive heart failure. Pt received 20 mg Lasix and 2.5 metalozone yesterday and pt did have some slight improvement in lower leg pain and swelling today. Pt will receive 80 mg Lasix today with the 2.5 mg metolazone held for the time being. Due to history of CKD, creatinine will be monitored for worsening function. Also with the history of right ventricular dysfunction, pt will be monitored for signs and symptoms of worsening cardiac output with decreased preload that is likely to occur from diuresis. An arterial duplex of the legs was ordered. (2) Pain and swelling of right lower extremity: See plan above. (3) Chest pain: Pt presented with substernal chest pressure that accompanied the worsening lower extremity swelling and pain over the 2 days prior to admission. Pt states that the substernal chest pressure has resolved. EKG showed 88 bpm with normal sinus rhythm, no ST changes, right BBB, and left axis deviation consistent with EKG done 10/15/19. Troponin level was less than 0.015 and Pro BNP was 421. Pt has a repeat EKG ordered, is placed on continuous cardiac monitoring, and has an echocardiogram ordered. Pt will continue on aspirin. Chest pain type: unspecified Qualified Code(s): R07.9 - Chest pain, unspecified (4) Chronic diastolic congestive heart failure: See chest pain above. Pt will continue on aspirin. (5) Breathlessness: Pt presented with accompanying SOB with worsening lower extremity swelling and pain over the 2 days prior to admission. Pt states that the SOB has returned to baseline SOB due to COPD prior to symptoms that occurred during the last few days. Pt presented with a O2 Sat of 93% which is 96% via trach collar on room air today. Pt will continue with DuoNebs and monitored for worsening symptoms. (6) Chronic obstructive pulmonary disease: See breathlessness above: Continue Combivent 1 puff inhalation QID, Loratadine 10 mg PO daily, Ipratropion-albuterol 3 mL inhalation QID PRN. Monitor for worsening SOB and pulse Ox. (7) Insulin-requiring or dependent type II diabetes mellitus: Pt presented with a blood glucose of 228 adn HgA1C of 9.0%. Pt will restart insulin pump. Pt will be monitored for signs and symptoms of hypo- or hyperglycemia and glucose levels will be monitored. (8) Hypertension: Pt blood pressure is 125/67 today after presenting with 146/73. Pt will continue on Lisinopril 2.5 mg PO daily, Metoprolol tartrate 12.5 mg PO BID, Nitroglycerin 0.4 mg sublingual UD. (9) Hypothyroidism: TSH was 1.380. Pt will continue levothyroxine 200 mcg PO daily (10) Anxiety: Pt will continue home bupropion HCL 300 mg PO daily with the lorazepam 1 mg PO Q8H PRN held at this time. Pt will be monitored for worsening symptoms. (11) GERD (gastroesophageal reflux disease): Pt will continue on pantoprazole 40 mg PO QAM (12) Common migraine without aura: Pt will continue with Topiramate 100 mg PO QAM and 200 mg PO HS (13) DVT prophylaxis: Pt has an IVC filter in place. Admission and Anticipated Discharge Date Admission Date: April 14, 2021 Supervising Attestation I personally examined the patient and verified all pappas points of history and exam, discussed case, and agree with decision making with Rainer Rahsid MS2 Feeling better than when she came in, but still more dyspneic than baseline. Vitals noted, in general she is awake and alert pleasant no distress. HEENT normocephalic atraumatic mucous membranes moist. Lungs show bibasilar rales/rhonchi, more clear towards the top. No accessory muscle use. Acute on chronic presumably diastolic CHFwith a heavy right-sided component, likely from her pulmonary disease/obesity hypoventilationdiuresis, supportive care, follow closely, follow basic metabolic panel. Otherwise as above. Subjective 65 y/o female with a PMH of T2DM, COPD with nightly oxygen and tracheostomy, HTN, hypothyroidism, CKD, CHF with right ventricular dysfunction arrived to the ED via ambulance after feeling sick and weak with pain in bilateral legs to lower thighs that was getting worse over the last 2 days. In addition, pt felt some slight chest discomfort and shortness of breath which did not improve with home inhaler. Pt called her shingle catcher for advice who recommended the pt come to the ED. Pt states that the pain in the bilateral legs with swelling. Pts pain was reduced with aspirin and 2 doses of nitroglycerin for EMS. Pt did have part of her left great toenail removed several week ago which she states is still painful despite not noticing worsening erythema, warmth, or discoloration from the area. EK bpm with normal sinus rhythm, no ST changes. Right BBB and left axis. Pt placed on continuous cardiac monitoring; findings consistent with EKG done 10/15/19 Ultrasound: no evidence of DVT CXR: Cardiomegaly with no evidence of focal pulmonary consolidation or pleural effusions Pt was given 20 mg furosemide IV in addition to 2.5 mg metolazone PO for diuresis. Given 50 mcg fentanyl IV for pain. Given albuterol/ipratropium 3 mg/0.5 nebulizer. Echo and repeat EKG ordered Today the pt says that the right big toe nail that was removed still is moderately painful. Chest pressure is better today. SOB has improved to baseline. Leg pain is a little better from yesterday but still present. Pt states that sleep last night was tough as worsening SOB. No changes in meds and no missed dosages. Pt states she is very compliant with low salt diet. Pt does admit that her blood sugars have been running in the mid to high 200s since the onset of pain but does state that she has been compliant with her insulin via pump. Pt states she has been more active and getting out of the house due to all of her recent checkups with her doctors. Pt states that maybe the new chest pain has been due to more pollen. Pt feels like this came out of no-where. Review of Systems Constitutional: no fever, no chills and no weakness Respiratory: SOB but back to baseline SOB prior to onset of symptoms Cardiovascular: no chest pain Additional Comments: Chest pressure has resolved today Gastrointestinal: no abdominal pain, no nausea and no vomiting Genitourinary: no dysuria Musculoskeletal: Pain in both feet is a 6/10 which improved from 7-8/10 yesterday. Pain is located primarily to the feet. Constant pain that worsens with ambulation and improves with rest. Neurologic: no tingling and no numbness Psychiatric: no behavioral changes Physical Exam Eyes: EOM intact bilaterally Respiratory: Uses accessory muscles and tachypneic. Symmetric chest movement. No audible wheezes. Diminished sounds on auscultation due to lack of inspiratory effort and body habitus. Cardiovascular: quiet heart sounds, regular rate and regular rhythm Heart Sounds: normal S1 and normal S2; no click, no gallop, no murmur and no cardiac rub Vessels: difficult to auscultate carotid bruits and assess JVD due to body habitus, pedal edema 2+ Gastrointestinal (Abdomen): Quiet bowel sounds, distended, tender in RUQ and epigastric area, no hepatosplenomegaly Musculoskeletal: Pain on light to moderate palpation of feet bilaterally that is still present up to the hips but improves towards the trunk. Skin is warm but no acute evidence of infection. Skin: LLQ and RLQ lesions from insulin pump placement appear to be healing, no evidence of pus or drainage, mild erythema. Lesion associated with left big toe post-nail removal shows no evidence of pus or drainage and mild erythema. Neurologic: Deep tendon reflexes 1+ bilaterally Results & Data ([facility]) Vital Signs (Past 12 Hours) Vital Signs Temp Pulse Pulse Resp BP Pulse Ox 04/15/21 11:23 37.4 C 87 20 125/67 91 04/15/21 08:57 88 04/15/21 08:09 36.8 C 90 18 140/70 96 04/15/21 05:21 36.8 C 88 20 146/73 H 96
[2021-04-15] MEDS ORDERED: INSULIN GLARGINE 100 UNIT/ML VIAL SC SCH ×2 (13:00→21:00)
--- NOTE | 2021-04-15 13:24 | Electrocardiogram Report ---
Test Reason : Blood Pressure : / mmHG Vent. Rate : 088 BPM Atrial Rate : 088 BPM P-R Int : 178 ms QRS Dur : 132 ms QT Int : 404 ms P-R-T Axes : 007 -40 012 degrees QTc Int : 488 ms Sinus rhythm with Premature atrial complexes Left axis deviation Right bundle branch block Abnormal ECG When compared with ECG of 15-OCT-2019 06:31, Premature atrial complexes are now Present DE interval has decreased Confirmed by Cy Aponte ([id number]) on 04/15/2021 1:23:59 PM Referred By: REFERRED SELF Confirmed By:Cy Aponte
--- NOTE | 2021-04-15 14:00 | XCELERA ---
[id number]
--- NOTE | 2021-04-15 14:21 | Pharmacy Report ---
Pharmacy Glycemic Short Note 2 - Date of Service April 15, 2021 - Glycemic Short BSG Results (Last 24 hours): 04/14/21 04/15/21 04/15/21 16:40 00:28 03:01 Glucose 228 H POC Glucose 150 H 175 H 04/15/21 04/15/21 04/15/21 07:54 10:36 11:31 Glucose 210 H POC Glucose 271 H 249 H OUTPATIENT ANTIDIABETIC REGIMEN: * Humalog insulin pump - 6 units/hr basal + 50 units TIDM + 10-25 units w/ snacks + CF of 13 * HbA1c = 9.0% (04/15/21) ASSESSMENT: * 65 yo F admitted secondary to CHF. Pharmacy has been consulted to assist with inpatient glycemic management. Patient is well known to glycemic service. * There was some concern that patient could not work her own pump last evening so she was given basal and bolus insulin. This morning I transitioned patient back to her insulin pump. However, there was still concern that patient could not manage her pump. Met with patient in room this afternoon and she was able to demonstrate how to use her own pump. Her daughter is on her way with more pump supplies and insulin. Believe patient is capable of changing sites and using insulin pump on her own. * BSGs are slightly elevated which may be due to inadequate basal dose so far today. If BSGs remain elevated, will need to provide a temporary basal rate starting tomorrow morning. Patient will require help setting up a temporary basal rate as she reports never having to do this. * Continue to follow and trend patient's BSGs. PLAN FOR INPATIENT GLYCEMIC CONTROL: * Patient's own Humalog insulin pump * Basal Rate: 6 units/hr * CF: 13 PLAN FOR DISCHARGE: * To be determined
--- NOTE | 2021-04-15 14:52 | Electrocardiogram Report ---
Test Reason : Blood Pressure : / mmHG Vent. Rate : 089 BPM Atrial Rate : 089 BPM P-R Int : 204 ms QRS Dur : 132 ms QT Int : 394 ms P-R-T Axes : 048 -43 023 degrees QTc Int : 479 ms Sinus rhythm with Premature atrial complexes Left axis deviation Right bundle branch block Abnormal ECG When compared with ECG of 14-APR-2021 16:35, (unconfirmed) No significant change was found Confirmed by Cy Aponte ([id number]) on 04/15/2021 2:51:40 PM Referred By: REFERRED SELF Confirmed By:Cy Aponte
[2021-04-15] MEDS ORDERED: INSULIN ASPART 100 UNITS/ML VIAL SC SCH (16:30)
--- NOTE | 2021-04-15 18:05 | Billing Data ---
Date of Service April 15, 2021 Coding Level of Care Code 76220 Subseq Hosp Care Lvl 3
--- NOTE | 2021-04-15 18:06 | Billing Data ---
Date of Service April 15, 2021 Coding Level of Care Code 10195 Subseq Hosp Care Lvl 3
--- NOTE | 2021-04-16 01:19 | Billing Data ---
Date of Service April 16, 2021 Coding Level of Care Code 17405 Initial Inpt Care Lvl 3
[2021-04-16] MEDS: LEVOTHYROXINE SODIUM 200 MCG TABLET PO SCH (06:00)
[2021-04-16] MEDS: HEPARIN SOD 5,000 UNIT/0.5 ML VIAL SQ SCH ×3 (06:00→20:29)
[2021-04-16] MEDS: Ipratropium HFA Inhaler (Combivent Respimat P&T Subs) INH SCH ×4 (07:21→19:59)
[2021-04-16 08:05] LABS: BUN Creatinine Ratio 19.2 (10-20); Calcium 9.3 mg/dl (8.5-10.1); Creatinine Clr Calc Pharmacy 40.5 ml/min; Est GFR (African American) 30.9 ml/min; Est GFR (Non-African American) 26.7 ml/min; Magnesium 2.2 mg/dl (1.8-2.4); Phosphorus 3.7 mg/dl (2.5-4.9); Potassium 3.2 mmol/L (3.5-5.1)
[2021-04-16] MEDS ORDERED: POTASSIUM CHLORIDE CRTAB 20 MEQ TABCR PO STA (08:23)
[2021-04-16] MEDS: PANTOprazole 40 MG TAB PO SCH (08:55)
[2021-04-16] MEDS: SPIRONOLACTONE 25 MG TAB PO SCH (08:55)
[2021-04-16] MEDS: TORSEMIDE 20 MG TAB PO SCH ×2 (08:55→20:35)
[2021-04-16] MEDS: LORATADINE 10 MG TAB PO SCH (08:55)
[2021-04-16] MEDS: ASPIRIN 81 MG ECTAB PO SCH (08:55)
[2021-04-16] MEDS: buPROPion SR 150 MG TABCR PO SCH (08:55)
[2021-04-16] MEDS: lisinopril 2.5 MG TAB PO SCH (08:55)
[2021-04-16] MEDS: FOLIC ACID 1 MG TAB PO SCH (08:55)
[2021-04-16] MEDS: ISOSORBIDE MONO EXTENDED REL 60 MG TABCR PO SCH (08:55)
[2021-04-16] MEDS: METOPROLOL TARTRATE 25 MG TAB PO SCH ×2 (08:56→20:36)
[2021-04-16] MEDS: TOPIRAMATE 100 MG TAB PO SCH ×2 (08:56→20:31)
[2021-04-16] MEDS ORDERED: POTASSIUM CHLORIDE 10 MEQ TABCR PO STA (10:06)
--- NOTE | 2021-04-16 11:56 | Pharmacy Report ---
Pharmacy Glycemic Short Note 2 - Date of Service April 16, 2021 - Glycemic Short BSG Results (Last 24 hours): 04/15/21 04/15/21 04/15/21 16:28 20:31 21:39 Glucose POC Glucose 150 H 178 H 207 H 04/16/21 04/16/21 04/16/21 06:58 08:19 11:31 Glucose 168 H POC Glucose 220 H 239 H OUTPATIENT ANTIDIABETIC REGIMEN: * Humalog insulin pump - 6 units/hr basal + 50 units TIDM + 10-25 units w/ snacks + CF of 13 * HbA1c = 9.0% (04/15/21) ASSESSMENT: 04/16 * Pt continues on her insulin pump per outpatient settings. Met with patient today to discuss BSGs. Stressed the importance of tight glycemic control for wound healing. Critical to maintain BSGs <180 mg/dl (ideally <150 mg/dl). Pt does NOT want to stop her insulin pump but she does not know how to adjust her settings to achieve tighter glycemic control. Came up with a plan to add NovoLog ACHS per CF/CR to be given in addition to insulin pump for tighter control. 04/15 * 65 yo F admitted secondary to CHF. Pharmacy has been consulted to assist with inpatient glycemic management. Patient is well known to glycemic service. * There was some concern that patient could not work her own pump last evening so she was given basal and bolus insulin. This morning I transitioned patient back to her insulin pump. However, there was still concern that patient could not manage her pump. Met with patient in room this afternoon and she was able to demonstrate how to use her own pump. Her daughter is on her way with more pump supplies and insulin. Believe patient is capable of changing sites and using insulin pump on her own. * BSGs are slightly elevated which may be due to inadequate basal dose so far today. If BSGs remain elevated, will need to provide a temporary basal rate starting tomorrow morning. Patient will require help setting up a temporary basal rate as she reports never having to do this. * Continue to follow and trend patient's BSGs. PLAN FOR INPATIENT GLYCEMIC CONTROL: * Patient's own Humalog insulin pump * Basal Rate: 6 units/hr * CF: 13 * Add NovoLog per scale ACHS to be given in addition to insulin pump * Goal range = 110-140 mg/dl * CF = 10 mg/dl/unit * CR = 1 unit for every 3g CHO consumed PLAN FOR DISCHARGE: * To be determined
[2021-04-16] MEDS: INSULIN ASPART 100 UNITS/ML VIAL SC SCH ×3 (13:27→20:23)
--- NOTE | 2021-04-16 14:27 | Hospitalist Progress Note ---
Date of Service April 16, 2021 Assessment & Plan (1) Chronic diastolic congestive heart failure: Max andPatient is a 65 year old female with PMHx CHF, COPD, CKD stage 3, HLD, HTN, Hypothyroidism, Anxiety, that presents with 2 day history of worsening shortness of breath and crushing sternal chest pain in addition to bilateral foot pain s/p nail removal 2-3 months ago. Shortness of Breath: -Likely secondary to CHF exacerbation -BNP 421 on admission -Sufficiently diuresed following additional 80 mg of IV Lasix yesterday with noted rising creatinine -Continue home inhaler regimen consisting of Atrovent, Singulair, with Duoneb and Albuterol PRN -Continue Claritin -Continue home diuretics Spironolactone, and torsemide -Hold metolazone once a week, received in ED on admission -Daily weights -Monitor I/O's -Continue Trach care -Consulted PT OT for assessment of exercise tolerance given patient's body habitus and frequent shortness of breath B/L Foot Pain -Toes at this time do not appear overtly infected -Pulses of feet b/l difficult to feel, though exam limited from swelling and body habitus -No obvious trauma or inciting injury -Arterial duplex negative of legs bilaterally -Venous dopplers negative for DVT -Wound nurse consulted: Consideration of light compression/teds dressings in the setting of chronic peripheral edema Depression/Anxiety: -Continue home Bupropion -Hold Ativan at this time. Patient not noting increased anxiety. Chronic Headaches: -Continue home topiramate Hypothyroidism: -Continue Levothyroxine HTN: -Continue Lisinopril -Continue metoprolol -Continue isosorbide mononitrate FEN: HH diet, low sodium diet, fluid restrict 1800ml DVT: S/P IVF Filter Code: Full (2) Pain and swelling of right lower extremity: (3) Pain and swelling of left lower extremity: (4) Anxiety: (5) Chronic obstructive pulmonary disease: (6) Dyslipidemia: (7) Type 2 diabetes mellitus: Admission and Anticipated Discharge Date Admission Date: April 14, 2021 Supervising Physician Co-Signing Physician Notes I personally examined the patient and verified all pappas points of history and exam, discussed case, and agree with decision making with Dr Bonilla Breathing is now close to baseline. Leg pain and swelling is still bad.. Vitals noted, in general she is awake and alert pleasant no distress. HEENT normocephalic atraumatic mucous membranes moist. Breathing unlabored no accessory muscle use good effort. Extremities show probably about 2+ lower extremity edema with tender skin. Acute on chronic presumably diastolic CHFwith a heavy right-sided component, likely from her pulmonary disease/obesity hypoventilationgiven her breathing improving, and creatinine starting to bump, she is about as diuresed as we safely can do. The swelling in her legs is likely staying there because of venous stasismobilize compress elevate as best as possible. PT/OT eval and treat, possible need for rehab versus being able to go home. Otherwise as above. Subjective Patient continues to have leg pain that has been relatively unrelenting. Does feel like her shortness of breath is tremendously improved following receiving the Lasix yesterday. But continues to have difficulties with laying down, however this has been all along ongoing and was originally why she was required to have a trach. Physical Exam Constitutional: WD/WN, vitals as above Eyes: PERRL, conjunctivae normal, anicteric sclerae Respiratory: + labored breathing and + cough; no respiratory distress Auscultation: + diminished lung sounds (Likely secondary to body habitus) and + crackles (Reduce from prior); breath sounds present and no wheezes Cardiovascular: Rate/Rhythm: regular rate and regular rhythm Heart Sounds: + abnormal S1, + abnormal S2, no gallop, no murmur and no cardiac rub Gastrointestinal (Abdomen): Inspection/Auscultation: normal bowel sounds; abdomen not distended Percussion/Palpation: + abdomen tender (Epigastric and right upper quadrant) and abdomen soft; no guarding and no hepatosplenomegaly Neurologic: deep tendon reflexes 2+ bilaterally and moves all extremities Psychiatric: Orientation: alert and oriented x 3 Results & Data Results & Data ([facility]) Vital Signs (Past 12 Hours) Vital Signs Temp Pulse Pulse Pulse Resp BP Pulse Ox 04/16/21 11:33 85 20 90 04/16/21 11:00 37.5 C 85 106/71 91 04/16/21 08:53 70 126/76 04/16/21 07:28 37 C 83 22 107/65 91 04/16/21 07:22 87 22 91 04/16/21 07:00 89 04/16/21 04:42 98 H 119/68 04/16/21 02:57 37.3 C 92 H 21 162/68 H 99 Laboratory Results 04/16/21 04/16/21 04/16/21 Range/Units 20:06 16:34 11:31 Sodium (136-145) mmol/L Potassium (3.5-5.1) mmol/L Chloride (98-107) mmol/L Carbon Dioxide (21-32) mmol/L Anion Gap (3-11) BUN (7-18) mg/dl Creatinine (0.6-1.2) mg/dl Est Cr Clr Drug Dosing ml/min Est GFR ( Amer) ml/min Est GFR (Non-Af Amer) ml/min BUN/Creatinine Ratio (10-20) Glucose (70-99) mg/dl POC Glucose 181 H 168 H 239 H (70-99) mg/dl Calcium (8.5-10.1) mg/dl Phosphorus (2.5-4.9) mg/dl Magnesium (1.8-2.4) mg/dl Mizai-3-Rqodtzxdfsb (83-199) mg/dL 04/16/21 04/16/21 04/15/21 Range/Units 08:19 06:58 21:39 Sodium 136 (136-145) mmol/L Potassium 3.2 L D (3.5-5.1) mmol/L Chloride 101 (98-107) mmol/L Carbon Dioxide 30 (21-32) mmol/L Anion Gap 5.0 (3-11) BUN 37 H D (7-18) mg/dl Creatinine 1.94 H D (0.6-1.2) mg/dl Est Cr Clr Drug Dosing 40.5 ml/min Est GFR ( Amer) 30.9 ml/min Est GFR (Non-Af Amer) 26.7 ml/min BUN/Creatinine Ratio 19.2 (10-20) Glucose 168 H (70-99) mg/dl POC Glucose 220 H 207 H (70-99) mg/dl Calcium 9.3 (8.5-10.1) mg/dl Phosphorus 3.7 (2.5-4.9) mg/dl Magnesium 2.2 (1.8-2.4) mg/dl Bsdqf-0-Trybtbpuyiy (83-199) mg/dL 04/15/21 04/15/21 Range/Units 20:31 07:54 Sodium (136-145) mmol/L Potassium (3.5-5.1) mmol/L Chloride (98-107) mmol/L Carbon Dioxide (21-32) mmol/L Anion Gap (3-11) BUN (7-18) mg/dl Creatinine (0.6-1.2) mg/dl Est Cr Clr Drug Dosing ml/min Est GFR ( Amer) ml/min Est GFR (Non-Af Amer) ml/min BUN/Creatinine Ratio (10-20) Glucose (70-99) mg/dl POC Glucose 178 H (70-99) mg/dl Calcium (8.5-10.1) mg/dl Phosphorus (2.5-4.9) mg/dl Magnesium (1.8-2.4) mg/dl [id number]-2-Iazdmnwyqsj 205 H (83-199) mg/dL Medications Administered Current Inpatient Medications Acetaminophen (Acetaminophen 500 Mg Tab) 1,000 mg PO Q8H PRN PRN Reason: Pain or Fever Stop: 05/14/21 23:21 Last Admin: 04/16/21 17:35 Dose: 1,000 mg Documented by: Albuterol (Albut/Ipratrop 3mg/0.5mg Neb 3 Ml Vial) 3 ml INH QID PRN PRN Reason: Shortness Of Breath Or Wheezing Stop: 05/14/21 23:21 Albuterol (Albuterol Hfa 8 Gm Inhaler) 2 puffs INH Q4H PRN PRN Reason: Shortness Of Breath Stop: 05/14/21 23:42 Aspirin (Aspirin 81 Mg Ectab) 81 mg PO QAM [facility] Stop: 05/15/21 08:59 Last Admin: 04/16/21 08:55 Dose: 81 mg Documented by: Atorvastatin Calcium (Atorvastatin 40 Mg Tab) 40 mg PO QPM [facility] Stop: 05/14/21 23:21 Last Admin: 04/15/21 21:54 Dose: 40 mg Documented by: Azithromycin (Azithromycin 250 Mg Tab) 250 mg PO MoWeFr@1100 [facility] Stop: 05/15/21 10:59 Last Admin: 04/15/21 11:54 Dose: 250 mg Documented by: Bupropion HCl (Bupropion Sr 150 Mg Tabcr) 300 mg PO DAILY [facility] Stop: 05/15/21 08:59 Last Admin: 04/16/21 08:55 Dose: 300 mg Documented by: Dextrose (Dextrose 50% 50 Ml Syringe) 25 - 50 ml IV UD PRN; Protocol PRN Reason: Hypoglycemia Protocol Stop: 05/15/21 00:59 Folic Acid (Folic Acid 1 Mg Tab) 1 mg PO QAM [facility] Stop: 05/15/21 08:59 Last Admin: 04/16/21 08:55 Dose: 1 mg Documented by: Glucagon (Glucagon For Inj 1 Mg Vial) 1 mg SQ UD PRN; Protocol PRN Reason: Hypoglycemia Protocol Stop: 05/15/21 00:59 Glucose (Glucose 40% Gel 15 Gm Tube) 15 - 30 gm PO UD PRN; Protocol PRN Reason: Hypoglycemia Protocol Stop: 05/15/21 00:59 Glucose (Glucose 10 Tabs/Tube) 4 - 8 tabs PO UD PRN; Protocol PRN Reason: Hypoglycemia Protocol Stop: 05/15/21 00:59 Heparin Sodium (Porcine) (Heparin Sod 5,000 Unit/0.5 Ml Vial) 7,500 units SQ Q8 [facility] Stop: 05/14/21 23:21 Last Admin: 04/16/21 13:19 Dose: 7,500 units Documented by: Insulin Aspart (Insulin Aspart 100 Units/Ml Vial) 0 units SC [facility]; Protocol Stop: 05/16/21 11:59 Last Admin: 04/16/21 17:36 Dose: 18 units Documented by: Insulin Human Lispro (Humalog Insulin Pump) 1 ea N/A [facility]; Protocol Stop: 05/15/21 11:29 Last Admin: 04/16/21 17:44 Dose: 1 ea Documented by: Insulin Human Lispro (Insulin Human Lispro (Humalog) 100 Units/Ml Vial) 0 units SC PRN PRN PRN Reason: REFILL Stop: 05/15/21 10:14 Ipratropium [place] (Ipratropium Hfa Inhaler (Combivent Respimat P&T Subs)) 1 puffs INH QIDR [facility] Stop: 05/14/21 23:21 Last Admin: 04/16/21 19:59 Dose: 1 puffs Documented by: Isosorbide Mononitrate (Isosorbide [place] Extended Rel 60 Mg Tabcr) 60 mg PO QAM [facility] Stop: 05/15/21 08:59 Last Admin: 04/16/21 08:55 Dose: 60 mg Documented by: Levothyroxine Sodium (Levothyroxine Sodium 200 Mcg Tablet) 200 mcg PO DAILYBB [facility] Stop: 05/15/21 06:29 Last Admin: 04/16/21 06:00 Dose: 200 mcg Documented by: Lisinopril (Lisinopril 2.5 Mg Tab) 2.5 mg PO DAILY [facility] Stop: 05/15/21 08:59 Last Admin: 04/16/21 08:55 Dose: 2.5 mg Documented by: Loratadine (Loratadine 10 Mg Tab) 10 mg PO DAILY [facility] Stop: 05/15/21 08:59 Last Admin: 04/16/21 08:55 Dose: 10 mg Documented by: Metoprolol Tartrate (Metoprolol Tartrate 25 Mg Tab) 12.5 mg PO BID [facility] Stop: 05/14/21 23:21 Last Admin: 04/16/21 08:56 Dose: 12.5 mg Documented by: Miscellaneous (Carbohydrates For Hypoglycemia ) 15 - 30 gm PO UD PRN PRN Reason: Hypoglycemia Treatment Stop: 05/15/21 00:59 Miscellaneous Information (Pharmacy Glycemic Mgmt Consult) 1 ea N/A UD PRN PRN Reason: Consult Stop: 05/15/21 00:10 Montelukast Sodium (Montelukast Sodium 10 Mg Tablet) 10 mg PO QPM [facility] Stop: 05/14/21 23:21 Last Admin: 04/15/21 21:55 Dose: 10 mg Documented by: Nitroglycerin (Nitroglycerin Sl 0.4 Mg/Tab Tab) 0.4 mg SL UD PRN PRN Reason: CHEST PAIN Stop: 05/14/21 23:21 Ondansetron HCl (Ondansetron Inj 2 Mg/Ml 2 Ml Vial) 4 mg IV Q6H PRN PRN Reason: Nausea Stop: 05/14/21 23:21 Pantoprazole Sodium (Pantoprazole 40 Mg Tab) 40 mg PO QAM [facility] Stop: 05/15/21 08:59 Last Admin: 04/16/21 08:55 Dose: 40 mg Documented by: Spironolactone (Spironolactone 25 Mg Tab) 25 mg PO QAM [facility] Stop: 05/15/21 08:59 Last Admin: 04/16/21 08:55 Dose: 25 mg Documented by: Topiramate (Topiramate 100 Mg Tab) 100 mg PO QAM [facility] Stop: 05/15/21 08:59 Last Admin: 04/16/21 08:56 Dose: 100 mg Documented by: Topiramate (Topiramate 100 Mg Tab) 200 mg PO HS [facility] Stop: 05/14/21 23:21 Last Admin: 04/15/21 21:55 Dose: 200 mg Documented by: Torsemide (Torsemide 20 Mg Tab) 40 mg PO QAM [facility] Stop: 05/15/21 08:59 Last Admin: 04/16/21 08:55 Dose: 40 mg Documented by: Torsemide (Torsemide 20 Mg Tab) 20 mg PO QPM [facility] Stop: 05/14/21 23:21 Last Admin: 04/15/21 21:55 Dose: 20 mg Documented by: Resident Activity Tracking Resident Involvement: Resident Care Provided Care Provided: Adult Hospital Medicine : Fluid overload Qualifiers: Hypervolemia type: unspecified Qualified Code(s): E87.70 - Fluid overload, unspecified CHF (congestive heart failure) Qualifiers: Heart failure type: right-sided Heart failure chronicity: acute on chronic Qualified Code(s): I50.813 - Acute on chronic right heart failure Chest pain Qualifiers: Chest pain type: unspecified Qualified Code(s): R07.9 - Chest pain, unspecified
[2021-04-16] MEDS: ACETAMINOPHEN 500 MG TAB PO PRN (17:35)
--- NOTE | 2021-04-16 20:11 | Billing Data ---
Date of Service April 16, 2021 Coding Level of Care Code 52959 Subseq Hosp Care Lvl 2
[2021-04-16] MEDS: ATORVASTATIN 40 MG TAB PO SCH (20:30)
[2021-04-16] MEDS: MONTELUKAST SODIUM 10 MG TABLET PO SCH (20:35)
[2021-04-17] MEDS: ALBUTEROL HFA 8 GM INHALER INH PRN ×2 (00:05→20:59)
[2021-04-17 06:18] LABS: Hematocrit (blood only) 36.5 % (37-47); Hemoglobin 11.3 g/dL (12.0-16.0); Mean Corpuscular Hemoglobin 28.5 pg (25-34); Mean Corpuscular Volume 92.2 fL (80-100); Mean Platelet Volume 9.5 fL (7.4-10.4); Platelet Count 266 K/uL (130-400); RDW Coefficient of Variation 15.3 % (11.5-14.5); RDW Standard Deviation 52.2 fL (36.4-46.3); Red Blood Count 3.96 M/uL (4.2-5.4); White Blood Count 13.29 K/uL (4.8-10.8)
[2021-04-17] MEDS: HEPARIN SOD 5,000 UNIT/0.5 ML VIAL SQ SCH ×3 (06:23→21:39)
[2021-04-17] MEDS: LEVOTHYROXINE SODIUM 200 MCG TABLET PO SCH (06:23)
[2021-04-17 07:22] LABS: BUN Creatinine Ratio 21.9 (10-20); Calcium 8.8 mg/dl (8.5-10.1); Creatinine Clr Calc Pharmacy 33.3 ml/min; Est GFR (African American) 24.4 ml/min; Est GFR (Non-African American) 21.1 ml/min; Potassium 3.3 mmol/L (3.5-5.1)
[2021-04-17] MEDS: Ipratropium HFA Inhaler (Combivent Respimat P&T Subs) INH SCH ×4 (07:27→19:50)
[2021-04-17] MEDS ORDERED: POTASSIUM CHLORIDE CRTAB 20 MEQ TABCR PO STA (08:13)
[2021-04-17] MEDS: lisinopril 2.5 MG TAB PO SCH (08:38)
[2021-04-17] MEDS: PANTOprazole 40 MG TAB PO SCH (08:38)
[2021-04-17] MEDS: METOPROLOL TARTRATE 25 MG TAB PO SCH ×2 (08:38→21:38)
[2021-04-17] MEDS: ISOSORBIDE MONO EXTENDED REL 60 MG TABCR PO SCH (08:38)
[2021-04-17] MEDS: TOPIRAMATE 100 MG TAB PO SCH ×2 (08:38→21:39)
[2021-04-17] MEDS: SPIRONOLACTONE 25 MG TAB PO SCH (08:38)
[2021-04-17] MEDS: buPROPion SR 150 MG TABCR PO SCH (08:38)
[2021-04-17] MEDS: FOLIC ACID 1 MG TAB PO SCH (08:38)
[2021-04-17] MEDS: LORATADINE 10 MG TAB PO SCH (08:38)
[2021-04-17] MEDS: ASPIRIN 81 MG ECTAB PO SCH (08:38)
[2021-04-17] MEDS: INSULIN ASPART 100 UNITS/ML VIAL SC SCH ×4 (08:45→21:40)
[2021-04-17] MEDS: AZITHROMYCIN 250 MG TAB PO SCH (13:00)
[2021-04-17] MEDS: TORSEMIDE 20 MG TAB PO SCH ×2 (13:00→21:39)
--- NOTE | 2021-04-17 13:27 | Medical Student Progress Note ---
Date of Service April 17, 2021 Assessment & Plan (1) Pain and swelling of right lower extremity: Today pt stated that pain in feet was the same as it was yesterday but on physical exam with palpation was in considerably less discomfort compared to yesterday. Pt admits that pain seems much less severe today after physical exam. Pt was effectively diuresed and pt has yet to try compression socks. PT/OT has yet to see the pt. Pt will continue to have furosemide and metolazone held. Pt will start light compression socks and monitored for improvement. Pt will progress to tighter compression socks as tolerated and monitored for worsening leg pain. Pt will be assessed by PT/OT. (2) Pain and swelling of left lower extremity: See right lower extremity above. (3) Fluid overload: Pt presented with potential CHF exacerbation in the setting of right ventricular dysfunction. Pt was treated with furosemide and metolazone for diuresis. Furosemide and metolazone were held yesterday. Pedal edema has decreased since admission and creatinine level increased from 1.52 to 2.43. Pt is currently on fluid restriction. Pt will no longer be fluid restricted and creatinine level and I/Os will be monitored. Continue home spironolactone and torsemide. Hypervolemia type: unspecified Qualified Code(s): E87.70 - Fluid overload, unspecified (4) COPD (chronic obstructive pulmonary disease): Pt no longer has shortness of breath with an O2 sat of 94% on room air. Pt will continue on atrovent, singulair, with duoneb and albuterol PRN. Pt will continue on claritin. Pt will continue with trach care. (5) HTN (hypertension): Pt blood pressure is 108/73 today. Pt will continue lisinopril, metoprolol, and isosorbide mononitrate. Pt blood pressure will continue to monitored. (6) DM type 2 (diabetes mellitus, type 2): Pt's glucose is 212 today. Pt will continue on insulin pump. Blood sugars will continue to be monitored. (7) Hypothyroid: Pt will continue with levothyroxine. (8) Migraine: Pt will continue taking topiramate. Admission and Anticipated Discharge Date Admission Date: April 14, 2021 Supervising Attestation I personally examined the patient and verified all pappas points of history and exam, discussed case, and agree with decision making with Rainer Rashid MS2 Breathing doing better. Leg pain improved but still bad.. Vitals noted, in general she is awake and alert pleasant no distress. HEENT normocephalic atraumatic mucous membranes moist. Breathing unlabored no accessory muscle use good effort. No new findings otherwise.. Acute on chronic presumably diastolic CHFwith a heavy right-sided component, likely from her pulmonary disease/obesity hypoventilationgiven her breathing improving, and creatinine bumped, she is about as diuresed as we safely can do. The swelling in her legs is likely staying there because of venous stasismobilize compress elevate as best as possible. PT/OT eval and treat, possible need for rehab versus being able to go home. Is showing improvement. Otherwise as above. Subjective 65 y/o female with a PMH of T2DM, COPD with nightly oxygen and tracheostomy, HTN, hypothyroidism, CKD, CHF with right ventricular dysfunction arrived to the ED via ambulance after feeling sick and weak with pain in bilateral legs to lower thighs that was getting worse over the last 2 days. In addition, pt felt some slight chest discomfort and shortness of breath which did not improve with home inhaler. Pt called her teacher aide for advice who recommended the pt come to the ED. Pt states that the pain in the bilateral legs with swelling. Pts pain was reduced with aspirin and 2 doses of nitroglycerin for EMS. Pt did have part of her left great toenail removed several week ago which she states is still painful despite not noticing worsening erythema, warmth, or discoloration from the area. EK bpm with normal sinus rhythm, no ST changes. Right BBB and left axis. Pt placed on continuous cardiac monitoring; findings consistent with EKG done 10/15/19 Ultrasound: no evidence of DVT CXR: Cardiomegaly with no evidence of focal pulmonary consolidation or pleural effusions Pt was given 20 mg furosemide IV in addition to 2.5 mg metolazone PO for diuresis. Given 50 mcg fentanyl IV for pain. Given albuterol/ipratropium 3 mg/0.5 nebulizer. Echo and repeat EKG ordered. Yesterday, furosemide and metolazone were held. Today pt states that she is feeling better. Pt states that she got much better sleep last night and feels generally better. Pt had not had compression socks placed yet and had not seen PT/OT yet. Pt states that the legs are about the same level of pain. Pt no longer has shortness of breath or chest pain. Review of Systems 2 Constitutional: no fever and no chills Eyes: No visual changes. Respiratory: Denies shortness of breath Cardiovascular: no chest pain Gastrointestinal: no abdominal pain, no nausea and no diarrhea/loose stools Pt states that she hasn't had a bowel movement since being at the hospital. Last bowel movement was a couple of days prior to hospital admission. Musculoskeletal: no muscle weakness Neurologic: Numbness and tingling in legs worse than yesterday (pins and needles up to knees) Psychiatric: Denies hallucinations. Doing mentally well. Physical Exam Eyes: EOM intact, no tremor on sustained arm extension. Mild intention tremor on finger to nose test. Respiratory: Normal breath sounds bilaterally, tachypnea and use of accessory muscles have lessened since yesterday. Cardiovascular: RRR, no carotid bruits, normal pulses in extremities. 2+ pedal edema Gastrointestinal (Abdomen): No abdominal pain on palpation, normal bowel sounds. Neurologic: 1+ reflexes bilaterally, inability to distinguish sharp and dull sensation, sensation equal bilaterally, moderate pain in lower extremities that improves moving from feet to hips bilaterally, pain has improved to a moderate degree since yesterday with palpation Results & Data ([facility]) Vital Signs (Past 12 Hours) Vital Signs Temp Pulse Pulse Pulse Resp BP BP 04/17/21 11:39 36.8 C 74 20 108/73 04/17/21 11:36 76 20 04/17/21 08:00 90 04/17/21 07:36 36.8 C 85 18 120/72 04/17/21 07:27 80 20 04/17/21 03:20 36.8 C 86 20 115/60 Pulse Ox 04/17/21 11:39 94 04/17/21 11:36 93 04/17/21 08:00 04/17/21 07:36 91 04/17/21 07:27 96 04/17/21 03:20 95
--- NOTE | 2021-04-17 19:14 | Billing Data ---
Date of Service April 17, 2021 Coding Level of Care Code 85367 Subseq Hosp Care Lvl 2
[2021-04-17] MEDS: ATORVASTATIN 40 MG TAB PO SCH (21:38)
[2021-04-17] MEDS: MONTELUKAST SODIUM 10 MG TABLET PO SCH (21:39)
[2021-04-18] MEDS: LEVOTHYROXINE SODIUM 200 MCG TABLET PO SCH (06:20)
[2021-04-18] MEDS: HEPARIN SOD 5,000 UNIT/0.5 ML VIAL SQ SCH ×3 (06:20→21:23)
[2021-04-18 07:31] LABS: BUN Creatinine Ratio 30.2 (10-20); Calcium 9.1 mg/dl (8.5-10.1); Creatinine Clr Calc Pharmacy 34.4 ml/min; Est GFR (African American) 25.5 ml/min; Potassium 3.4 mmol/L (3.5-5.1)
[2021-04-18] MEDS: Ipratropium HFA Inhaler (Combivent Respimat P&T Subs) INH SCH ×4 (07:34→20:05)
[2021-04-18] MEDS: METOPROLOL TARTRATE 25 MG TAB PO SCH ×2 (08:38→21:22)
[2021-04-18] MEDS: FOLIC ACID 1 MG TAB PO SCH (08:38)
[2021-04-18] MEDS: TOPIRAMATE 100 MG TAB PO SCH ×2 (08:38→21:23)
[2021-04-18] MEDS: SPIRONOLACTONE 25 MG TAB PO SCH (08:39)
[2021-04-18] MEDS: buPROPion SR 150 MG TABCR PO SCH (08:39)
[2021-04-18] MEDS: lisinopril 2.5 MG TAB PO SCH (08:39)
[2021-04-18] MEDS: TORSEMIDE 20 MG TAB PO SCH ×2 (08:39→21:23)
[2021-04-18] MEDS: ASPIRIN 81 MG ECTAB PO SCH (08:39)
[2021-04-18] MEDS: ISOSORBIDE MONO EXTENDED REL 60 MG TABCR PO SCH (08:39)
[2021-04-18] MEDS: PANTOprazole 40 MG TAB PO SCH (08:39)
[2021-04-18] MEDS: LORATADINE 10 MG TAB PO SCH (08:39)
[2021-04-18] MEDS: INSULIN ASPART 100 UNITS/ML VIAL SC SCH ×4 (08:40→21:23)
[2021-04-18] MEDS: ACETAMINOPHEN 500 MG TAB PO PRN (08:52)
--- NOTE | 2021-04-18 09:41 | Pharmacy Report ---
Pharmacy Glycemic Short Note 2 - Date of Service April 18, 2021 - Glycemic Short BSG Results (Last 24 hours): 04/17/21 04/17/21 04/17/21 11:35 16:35 20:14 Glucose POC Glucose 192 H 163 H 202 H 04/18/21 04/18/21 06:45 07:41 Glucose 191 H POC Glucose 203 H OUTPATIENT ANTIDIABETIC REGIMEN: * Humalog insulin pump - 6 units/hr basal + 50 units TIDM + 10-25 units w/ snacks + CF of 13 * HbA1c = 9.0% (04/15/21) ASSESSMENT: 04/18 * BSGs increased throughout the day yesterday * Will tighten correction factor today * Patient continues on home insulin pump with additional Novolog ACHS * BSG of 300 mg/dL at lunch - discussed with RN. Pump is connected and no obvious issues detected. If BSGs continue to trend up, it may be related to pump malfunction. Will reassess at dinnertime. 04/16 * Pt continues on her insulin pump per outpatient settings. Met with patient today to discuss BSGs. Stressed the importance of tight glycemic control for wound healing. Critical to maintain BSGs <180 mg/dl (ideally <150 mg/dl). Pt does NOT want to stop her insulin pump but she does not know how to adjust her settings to achieve tighter glycemic control. Came up with a plan to add NovoLog ACHS per CF/CR to be given in addition to insulin pump for tighter control. 04/15 * 65 yo F admitted secondary to CHF. Pharmacy has been consulted to assist with inpatient glycemic management. Patient is well known to glycemic service. * There was some concern that patient could not work her own pump last evening so she was given basal and bolus insulin. This morning I transitioned patient back to her insulin pump. However, there was still concern that patient could not manage her pump. Met with patient in room this afternoon and she was able to demonstrate how to use her own pump. Her daughter is on her way with more pump supplies and insulin. Believe patient is capable of changing sites and using insulin pump on her own. * BSGs are slightly elevated which may be due to inadequate basal dose so far today. If BSGs remain elevated, will need to provide a temporary basal rate starting tomorrow morning. Patient will require help setting up a temporary basal rate as she reports never having to do this. * Continue to follow and trend patient's BSGs. PLAN FOR INPATIENT GLYCEMIC CONTROL: * Patient's own Humalog insulin pump * Basal Rate: 6 units/hr * CF: 13 * Add NovoLog per scale ACHS to be given in addition to insulin pump * Goal range = 110-140 mg/dl * CF = 8 mg/dl/unit * CR = 1 unit for every 2.5g CHO consumed PLAN FOR DISCHARGE: * To be determined
--- NOTE | 2021-04-18 16:36 | Hospitalist Progress Note ---
Date of Service April 18, 2021 Assessment & Plan (1) Chronic diastolic congestive heart failure: 65 year old female with PMHx CHF, COPD, CKD stage 3, HLD, HTN, Hypothyroidism, Anxiety, that presents with 2 day history of worsening shortness of breath and crushing sternal chest pain in addition to bilateral foot pain s/p nail removal 2-3 months ago. Shortness of Breath: -Likely multifactorial secondary to COPD coupled with obesity hypoventilation possible viral infection -Unlikely this was secondary to CHF exacerbation BNP 421 on admission - diuresed with additional 80 mg of IV Lasix on admission and had sharply rising creatinine 2.36 from 1.48 on admission -Continue home inhaler regimen consisting of Atrovent, Singulair, with Duoneb and Albuterol PRN -Continue Claritin -Continue home diuretics Spironolactone, and torsemide -Hold metolazone once a week, received in ED on admission -Daily weights -Monitor I/O's -Continue Trach care -Consulted PT OT for assessment of exercise tolerance given patient's body habitus and frequent shortness of breath Both agree patient would likely benefit from SNF placement B/L Foot Pain -Toes at this time do not appear infected -Dorsalis pedis pulses palpable -No obvious trauma or inciting injury -Arterial duplex negative of legs bilaterally -Venous dopplers negative for DVT - Could be secondary to obesity and OA; Has not been trying tylenol, will try that first and reassess tomorrow Leg Swelling Patient appears to have Venous stasis secondary to body habitus, lack of mobility Will attempt compression stockings and leg elevation as tolerated and accept the swelling, patient is intravascularly depleted and will need to maintain PO intake with current home diuretic regimen back in place. If creatinine does not improve may scale back on home diuresis regimen. Depression/Anxiety: -Continue home Bupropion -Hold Ativan at this time. Patient not noting increased anxiety. Chronic Headaches: -Continue home topiramate Hypothyroidism: -Continue Levothyroxine HTN: -Continue Lisinopril -Continue metoprolol -Continue isosorbide mononitrate FEN: HH diet, low sodium diet, stopping fluid restriction DVT: Heparin Dispo: Stable from medical perspective awaiting placement at SNF when able FULL CODE Admission and Anticipated Discharge Date Admission Date: April 14, 2021 Supervising Physician Co-Signing Physician Notes I personally examined the patient and verified all pappas points of history and exam, discussed case, and agree with decision making with Dr Thierno Buck, but more or less at baseline. Understands the need for SNF type rehab Vitals noted, in general she is awake and alert pleasant no distress. HEENT normocephalic atraumatic mucous membranes moist. Breathing unlabored no accessory muscle use good effort. skin no pallor or icterus Acute on chronic presumably diastolic CHFwith a heavy right-sided component, likely from her pulmonary disease/obesity hypoventilation she is about as diuresed as we safely can do. The swelling in her legs is likely staying there because of venous stasismobilize compress elevate as best as possible. PT/OT eval and treat, SNF rehab once approved. Creatinine has peaked and is trending down Otherwise as above. Subjective Whit is doing fairly well from a breathing standpoint endorsing pain in her feet at base of her toes. Says it is pretty significant. Has not taken anything for it. Discussed plan on SNF for rehab and strengthening on discharged and she is in agreement this is probably what is needed so she can get to where she can ambulate again. Review of Systems Review of Systems: All systems reviewed & are unremarkable except as noted in HPI & below Physical Exam Physical Exam: Constitutional: Extremely obese woman lying in bed with trach collar in place, easily conversive Eyes: PERRLA, EOMMI b/l ENMT: NAD Respiratory: Regular rate, no increased work of breathing, lung sounds greatly decreased globally Cardiovascular: Regular rate and rhythm, no murmurs rubs skips or gallops, lower extermity edema 1+ GI: Abdomen obese, soft non tender MSK: Metatarsalphalangeal joint tenderness bilaterally, No bony abnormality, neurovascularly intact distal to pain Results & Data Results & Data ([facility]) Vital Signs (Past 12 Hours) Vital Signs Temp Pulse Pulse Pulse Resp BP BP 04/18/21 08:04 36.8 C 74 18 113/86 04/18/21 07:45 75 04/18/21 07:35 76 18 04/18/21 03:53 36.6 C 84 18 112/69 04/18/21 00:00 102 H 04/17/21 23:37 37.1 C 92 H 20 107/66 Pulse Ox 05/29/21 08:04 93 04/18/21 07:45 04/18/21 07:35 94 04/18/21 03:53 94 04/18/21 00:00 04/17/21 23:37 95 Resident Activity Tracking Resident Involvement: Resident Care Provided Care Provided: Adult Hospital Medicine
--- NOTE | 2021-04-18 17:45 | Billing Data ---
Date of Service April 18, 2021 Coding Level of Care Code 77722 Subseq Hosp Care Lvl 2
[2021-04-18] MEDS: ATORVASTATIN 40 MG TAB PO SCH (21:22)
[2021-04-18] MEDS: MONTELUKAST SODIUM 10 MG TABLET PO SCH (21:23)
[2021-04-18] MEDS: ALBUTEROL HFA 8 GM INHALER INH PRN (23:51)
[2021-04-19] MEDS: LEVOTHYROXINE SODIUM 200 MCG TABLET PO SCH (05:56)
[2021-04-19] MEDS: HEPARIN SOD 5,000 UNIT/0.5 ML VIAL SQ SCH ×3 (05:58→21:30)
[2021-04-19] MEDS: Ipratropium HFA Inhaler (Combivent Respimat P&T Subs) INH SCH ×4 (07:31→19:15)
[2021-04-19] MEDS: INSULIN ASPART 100 UNITS/ML VIAL SC SCH ×4 (08:42→21:32)
[2021-04-19] MEDS: TOPIRAMATE 100 MG TAB PO SCH ×2 (08:43→21:32)
[2021-04-19] MEDS: buPROPion SR 150 MG TABCR PO SCH (08:43)
[2021-04-19] MEDS: PANTOprazole 40 MG TAB PO SCH (08:43)
[2021-04-19] MEDS: ISOSORBIDE MONO EXTENDED REL 60 MG TABCR PO SCH (08:43)
[2021-04-19] MEDS: lisinopril 2.5 MG TAB PO SCH (08:43)
[2021-04-19] MEDS: SPIRONOLACTONE 25 MG TAB PO SCH (08:43)
[2021-04-19] MEDS: ASPIRIN 81 MG ECTAB PO SCH (08:43)
[2021-04-19] MEDS: LORATADINE 10 MG TAB PO SCH (08:44)
[2021-04-19] MEDS: FOLIC ACID 1 MG TAB PO SCH (08:44)
[2021-04-19] MEDS: TORSEMIDE 20 MG TAB PO SCH ×2 (08:44→21:32)
[2021-04-19] MEDS: METOPROLOL TARTRATE 25 MG TAB PO SCH ×2 (08:44→21:39)
[2021-04-19] MEDS: ACETAMINOPHEN 500 MG TAB PO PRN (08:45)
--- NOTE | 2021-04-19 12:51 | Hospitalist Progress Note ---
Date of Service April 19, 2021 Assessment & Plan (1) Chronic diastolic congestive heart failure: 65 year old female with PMHx CHF, COPD, CKD stage 3, HLD, HTN, Hypothyroidism, Anxiety, that presents with 2 day history of worsening shortness of breath and crushing sternal chest pain in addition to bilateral foot pain s/p nail removal 2-3 months ago. Shortness of Breath: -Likely multifactorial secondary to COPD coupled with obesity hypoventilation possible viral infection -Unlikely this was secondary to CHF exacerbation BNP 421 on admission - diuresed with additional 80 mg of IV Lasix on admission and had sharply rising creatinine 2.36 from 1.48 on admission -Continue home inhaler regimen consisting of Atrovent, Singulair, with Duoneb and Albuterol PRN -Continue Claritin -Continue home diuretics Spironolactone, and torsemide -Hold metolazone once a week, received in ED on admission -Daily weights -Monitor I/O's -Continue Trach care -Consulted PT OT for assessment of exercise tolerance given patient's body habitus and frequent shortness of breath Both agree patient would likely benefit from SNF placement vs rehab Patient accepted at [facility] for tomorrow B/L Foot Pain -Toes at this time do not appear infected -Dorsalis pedis pulses palpable -No obvious trauma or inciting injury -Arterial duplex negative of legs bilaterally -Venous dopplers negative for DVT -Could be secondary to obesity and OA; -Relieved with tylenol Leg Swelling Patient appears to have Venous stasis secondary to body habitus, lack of mobility Will attempt compression stockings and leg elevation as tolerated and accept the swelling, patient is intravascularly depleted and will need to maintain PO intake with current home diuretic regimen back in place. If creatinine does not improve may scale back on home diuresis regimen. Depression/Anxiety: -Continue home Bupropion -Hold Ativan at this time. Patient not noting increased anxiety. Chronic Headaches: -Continue home topiramate Hypothyroidism: -Continue Levothyroxine HTN: -Continue Lisinopril -Continue metoprolol -Continue isosorbide mononitrate FEN: HH diet, low sodium diet, stopping fluid restriction DVT: Heparin Dispo: Stable from medical perspective awaiting placement [facility] when able plan tentatively for tomorrow FULL CODE Admission and Anticipated Discharge Date Admission Date: April 14, 2021 Supervising Physician Co-Signing Physician Notes I personally examined the patient and verified all pappas points of history and exam, discussed case, and agree with decision making with Dr Pa still waiting on rehab Vitals noted, in general she is awake and alert pleasant no distress. HEENT normocephalic atraumatic mucous membranes moist. Breathing unlabored no accessory muscle use good effort. skin no pallor or icterus Acute on chronic presumably diastolic CHFwith a heavy right-sided component, likely from her pulmonary disease/obesity hypoventilation she is about as diuresed as we safely can do. The swelling in her legs is likely staying there because of venous stasismobilize compress elevate as best as possible. PT/OT eval and treat, SNF or rehab once approved. creatinine trending down Otherwise as above. Subjective Whit Confer is feeling even better today, anxious to get to SNF or Rehab. no new concerns breathing well, foot pain is controlled with tylenol. Wants to get up into a chair if possible today. Review of Systems Review of Systems: All systems reviewed & are unremarkable except as noted in HPI & below Physical Exam Physical Exam: Constitutional: Extremely obese woman lying in bed with trach collar in place, easily conversive Eyes: PERRLA, EOMMI b/l ENMT: NAD Respiratory: Regular rate, no increased work of breathing, lung sounds greatly decreased globally Cardiovascular: Regular rate and rhythm, no murmurs rubs skips or gallops, lower extermity edema 1+ GI: Abdomen obese, soft non tender MSK: Metatarsalphalangeal joint tenderness improved, No bony abnormality, neurovascularly intact distal to pain Results & Data Results & Data ([facility]) Vital Signs (Past 12 Hours) Vital Signs Temp Pulse Pulse Pulse Resp BP BP 04/19/21 11:38 36.5 C 67 20 103/51 L 04/19/21 11:22 70 18 04/19/21 07:46 36.7 C 68 18 128/69 04/19/21 07:33 76 18 04/19/21 07:14 74 04/19/21 03:39 36.6 C 72 18 102/56 L 04/19/21 01:38 77 Pulse Ox 04/19/21 11:38 95 04/19/21 11:22 96 04/19/21 07:46 94 04/19/21 07:33 94 04/19/21 07:14 04/19/21 03:39 94 04/19/21 01:38 Resident Activity Tracking Resident Involvement: Resident Care Provided Care Provided: Adult Hospital Medicine
--- NOTE | 2021-04-19 19:09 | Billing Data ---
Date of Service April 19, 2021 Coding Level of Care Code 39831 Subseq Hosp Care Lvl 1
[2021-04-19] MEDS: MONTELUKAST SODIUM 10 MG TABLET PO SCH (21:31)
[2021-04-19] MEDS: ATORVASTATIN 40 MG TAB PO SCH (21:31)
[2021-04-20] MEDS: ALBUTEROL HFA 8 GM INHALER INH PRN (00:21)
[2021-04-20] MEDS: LEVOTHYROXINE SODIUM 200 MCG TABLET PO SCH (05:37)
[2021-04-20] MEDS: HEPARIN SOD 5,000 UNIT/0.5 ML VIAL SQ SCH (05:37)
[2021-04-20] MEDS: Ipratropium HFA Inhaler (Combivent Respimat P&T Subs) INH SCH (07:13)
[2021-04-20 07:31] LABS: BUN Creatinine Ratio 33.1 (10-20); Calcium 8.2 mg/dl (8.5-10.1); Creatinine Clr Calc Pharmacy 41.2 ml/min; Est GFR (African American) 31.7 ml/min; Est GFR (Non-African American) 27.4 ml/min; Potassium 3.6 mmol/L (3.5-5.1)
[2021-04-20 07:45] LABS: Basophils # (auto) 0.04 K/uL (0-0.2); Basophils % (auto) 0.3 %; Eosinophils # (auto) 0.44 K/uL (0-0.5); Eosinophils % (auto) 3.6 %; Hematocrit (blood only) 35.4 % (37-47); Hemoglobin 11.1 g/dL (12.0-16.0); Immature Granulocytes # (auto) 0.22 K/uL (0.00-0.02); Immature Granulocytes % (auto) 1.8 %; Lymphocytes # (auto) 2.05 K/uL (1.2-3.4); Lymphocytes % (auto) 16.9 %; Mean Corpuscular Hemoglobin 28.7 pg (25-34); Mean Corpuscular Hgb Conc 31.4 g/dL (32-36); Mean Corpuscular Volume 91.5 fL (80-100); Mean Platelet Volume 9.2 fL (7.4-10.4); Monocytes # (auto) 1.01 K/uL (0.11-0.59); Monocytes % (auto) 8.3 %; Neutrophils # (auto) 8.39 K/uL (1.4-6.5); Neutrophils % (auto) 69.1 %; Platelet Count 319 K/uL (130-400); RDW Coefficient of Variation 15.1 % (11.5-14.5); RDW Standard Deviation 50.4 fL (36.4-46.3); Red Blood Count 3.87 M/uL (4.2-5.4); White Blood Count 12.15 K/uL (4.8-10.8)
[2021-04-20] MEDS: LORATADINE 10 MG TAB PO SCH (08:02)
[2021-04-20] MEDS: ASPIRIN 81 MG ECTAB PO SCH (08:03)
[2021-04-20] MEDS: PANTOprazole 40 MG TAB PO SCH (08:03)
[2021-04-20] MEDS: buPROPion SR 150 MG TABCR PO SCH (08:03)
[2021-04-20] MEDS: lisinopril 2.5 MG TAB PO SCH (08:03)
[2021-04-20] MEDS: ISOSORBIDE MONO EXTENDED REL 60 MG TABCR PO SCH (08:03)
[2021-04-20] MEDS: SPIRONOLACTONE 25 MG TAB PO SCH (08:03)
[2021-04-20] MEDS: METOPROLOL TARTRATE 25 MG TAB PO SCH (08:04)
[2021-04-20] MEDS: FOLIC ACID 1 MG TAB PO SCH (08:04)
[2021-04-20] MEDS: TOPIRAMATE 100 MG TAB PO SCH (08:04)
[2021-04-20] MEDS: ACETAMINOPHEN 500 MG TAB PO PRN (08:05)
[2021-04-20] MEDS: INSULIN ASPART 100 UNITS/ML VIAL SC SCH (08:08)
[2021-04-20] MEDS: TORSEMIDE 20 MG TAB PO SCH (08:31)
--- NOTE | 2021-04-20 09:48 | Discharge Summary ---
Date of Service April 20, 2021 Admission HPI Per Admitting Provider Patient is a 65 year old female with PMHx CHF, COPD, CKD stage 3, HLD, HTN, Hypothyroidism, Anxiety, that presents with 2 day history of worsening shortness of breath and crushing sternal chest pain. She states that while these have been most recently, the issue that she felt she needed to come in for was in regards to her b/l foot pain, L>R that had been ongoing for 2-3 months now after having removal of her nails from her big toes bilateral. Patient notes having increased SOB and SOB with exertion for the past 2 days in addition to what she describes as "crushing chest pain" on her sternum that improves dramatically with rest. She states that this seems to happen to her every year when "the pollen gets bad." She notes requiring increased amounts of her albuterol inhaler during these episodes which help as well. She has been afebrile at home with most recent temp 98F, though subjectively feels hot. She also notes that she has been having ongoing b/l foot pain since having her big toe nails of both feet removed (complete on R, partial on L). She states she has required antibiotic treatment x2 for these from her PCP with which she has noted improvement, but still is not entirely better. Today she presented by EMS for above complaints and on the way in was given ASA and 2 sublingual nitro which reduced her chest pain from 5 to 3/10. Currently patient denies any chest pain or SOB at rest. She is noting pain in her feet to palpation, but not at rest. She denies any abdominal discomfort, dizziness, headache, dysuria. Med Hx: CHF, COPD, CKD stage 3, HLD, HTN, Hypothyroidism, Anxiety Surg Hx: Tracheostomy, Appendectomy, Cholecystectomy, IVF filter Soc Hx: No tobacco, alcohol, illicit drug usage. Admission Exam Per Admitting Provider Constitutional: + morbidly obese and cooperative Eyes: PERRL, conjunctivae normal, anicteric sclerae ENMT: external ear and nose normal, oropharynx normal Neck: + tracheostomy present Respiratory: normal respiratory effort; no respiratory distress Auscultation: + diminished lung sounds and + wheezes Cardiovascular: Rate/Rhythm: regular rate and regular rhythm Extremities: + edema (1+ b/l ) Gastrointestinal (Abdomen): Inspection/Auscultation: normal bowel sounds and + significant pannus; abdomen not distended Abdominal wall excoriations and lesions that appear to have been picked at and scabbed over. Musculoskeletal: R foot with blackened scabbing where great toe nail would be present. TTP throughout all of the distal foot, without obvious erythema. L foot with blackened scabbing on the lateral aspect of the great toe nail. Again TTP throughought distal foot without obvious erythama Neurologic: PERRL, EOMI, accommodation nl, no face palsy, no dysarthria Psychiatric: A+Ox3, euthymic affect Principal Diagnosis shortness of breath Discharge Exam Constitutional WD/WN, vitals as above Eyes PERRL, conjunctivae normal, anicteric sclerae ENMT external ear and nose normal, oropharynx normal Neck + tracheostomy present Respiratory normal respiratory effort, lungs clear to auscultation Cardiovascular RRR, no murmur, no edema Gastrointestinal (Abdomen) normal bowel sounds, soft, nontender, no hepatosplenomegaly Skin no rashes, warm and dry Neurologic no focal motor deficits Psychiatric A+Ox3, euthymic affect Discharge Data Allergies Allergy/AdvReac Type Severity Reaction Status Date / Time amitriptyline Allergy Unknown ` Verified 04/14/21 19:34 gabapentin Allergy Unknown ` Verified 04/14/21 19:34 guaifenesin Allergy Unknown Unknown Verified 04/14/21 19:34 metformin Allergy Unknown ` Verified 04/14/21 19:34 Penicillins Allergy Unknown ` Verified 04/14/21 19:34 phenylephrine Allergy Unknown Unknown Verified 04/14/21 19:34 pseudoephedrine Allergy Unknown ` Verified 04/14/21 19:34 tetracycline Allergy Unknown ` Verified 04/14/21 19:34 doxycycline Allergy Unknown Verified 04/14/21 19:34 venlafaxine [From Effexor] Allergy Unknown Verified 04/14/21 19:34 Consultations 04/14/21 19:01 ED Decision to Admit Stat Ordered Studies 04/14/21 16:48 US venous doppler [facility] Stat 04/14/21 20:52 US arterial duplex [facility] Urgent Hospital Course (1) Breathlessness: 65 year old female with PMHx CHF, COPD, CKD stage 3, HLD, HTN, Hypothyroidism, Anxiety, that presents with 2 day history of worsening shortness of breath and crushing sternal chest pain in addition to bilateral foot pain s/p nail removal 2-3 months ago. Shortness of Breath, resolved Likely multifactorial secondary to COPD coupled with obesity hypoventilation and possible viral infection, excessive recent weight gain from lack of activity and increased calorie intake. Unlikely this was secondary to CHF exacerbation given admission BNP 421 -80 mg of IV Lasix on admission and had sharply rising creatinine -Continued home Spironolactone -Held torsemide given elevated creatinine -Continue home inhaler regimen consisting of Atrovent, Singulair, with Duoneb and Albuterol PRN -Continue Claritin -Continue Trach care Chest pain, resolved nl troponin EKG with NSR, PAC's and chronic right bundle branch block ECHO with EF of 55-60% no valvular pathology seen - unable to perform CT w/ contrast given poor kidney function - given significant risk factors for ACS would rec. cardiology follow up for consideration of further outpatient evaluation of chest pain JESSICA on CKD III: baseline cr. 1.5-1.7 Initially elevated following IV Lasix - stopped Torsemide and Metolazone prior to discharge - recheck BMP daily until patient returns to baseline creatinine - can consider restarting Torsemide and Metolazone if patient returns to baseline and/or shows signs of pulmonary edema or fluid overload B/L Foot Pain: Could be secondary to obesity and OA; Toes at this time do not appear infected Dorsalis pedis pulses palpable No obvious trauma or inciting injury -Arterial duplex negative of legs bilaterally -Venous Doppler negative for DVT -Relieved with Tylenol Leg Swelling: Patient appears to have Venous stasis secondary to body habitus, lack of mobility - continue compression stockings and leg elevation Depression/Anxiety: -Continue home Bupropion -Hold Ativan at this time. Patient not noting increased anxiety. Chronic Headaches: -Continue home topiramate Hypothyroidism: -Continue Levothyroxine HTN: -Continue Lisinopril -Continue metoprolol -Continue isosorbide mononitrate Payne: new since admission due to pt's inability to transfer to commode - discontinue Payne when the patient has improvement in ambulation/transfer Total Time Total Time Spent Total Time Spent (In Minutes): see attending attestation Discharge Plan Discharge Items Patient Disposition: Transfer Inpatient Rehab Fac Reason For Visit: CHEST PAIN, SOB, FEET PAIN B/L Discharge Diagnosis: CHF Activity: Per Instructions section Non-emergency contact: Primary Care Provider Call non-emergency contact if: you have any medication questions, your symptoms worsen and your pain is worsening Follow-up/Referrals: Gigi Bonilla MD [Resident] - Diet: Carb Consistent or DM2 and Heart Healthy Addtl Attending Provider Instructions: 65 year old female with PMHx CHF, COPD, CKD stage 3, HLD, HTN, Hypothyroidism, Anxiety, that presents with 2 day history of worsening shortness of breath and crushing sternal chest pain in addition to bilateral foot pain s/p nail removal 2-3 months ago. Shortness of Breath: Likely multifactorial secondary to COPD coupled with obesity hypoventilation, heart failure and possible viral infection Unlikely this was secondary to CHF exacerbation BNP 421 on admission shortness of breath has resolved -80 mg of IV Lasix on admission and had sharply rising creatinine -Continue home diuretics Spironolactone -Held torsemide given elevated creatinine -Continue home inhaler regimen consisting of Atrovent, Singulair, with Duoneb and Albuterol PRN -Continue Claritin -Daily weights -Continue Trach care Chest pain, resolved nl troponin EKG with NSR PAC's and chronic right bundle branch block ECHO with EF of 55-60% no valvular pathology seen - unable to perform CT w/ contrast given poor kidney function - given significant risk factors for ACS would rec. cardiology follow up for consideration of further outpatient evaluation of chest pain JESSICA on CKD III: baseline cr. 1.5-1.7 Initially elevated following IV Lasix - stopped Torsemide and Metolazone prior to discharge - recheck BMP daily until patient returns to baseline creatinine - can consider restarting Torsemide and Metolazone if patient returns to baseline and/or shows signs of pulmonary edema or fluid overload B/L Foot Pain: Could be secondary to obesity and OA; Toes at this time do not appear infected Dorsalis pedis pulses palpable No obvious trauma or inciting injury -Arterial duplex negative of legs bilaterally -Venous dopplers negative for DVT -Relieved with Tylenol Leg Swelling: Patient appears to have Venous stasis secondary to body habitus, lack of mobility Will attempt compression stockings and leg elevation as tolerated and accept the swelling, patient is intravascularly depleted and will need to maintain PO intake with current home diuretic regimen back in place. If creatinine does not improve may scale back on home diuresis regimen. Depression/Anxiety: -Continue home Bupropion -Hold Ativan at this time. Patient not noting increased anxiety. Chronic Headaches: -Continue home topiramate Hypothyroidism: -Continue Levothyroxine HTN: -Continue Lisinopril -Continue metoprolol -Continue isosorbide mononitrate Payne: new since admission due to pt's inability to transfer to commode - continue Payne care - discontinue Payne when the patient has improvement in ambulation/transfer FEN: HH diet, low sodium diet, stopping fluid restriction DVT: Heparin Dispo: Stable from medical perspective awaiting placement [facility] when able p indio tentatively for tomorrow Pending Studies at Discharge: No Stand-Alone Forms: My [employer], Smoking Cessation Skilled Items Patient informed of condition?: Yes DNR: No Discharge Level of Care: Acute rehab Communicable Disease: No Discharge Prognosis: Improving Lines: None Urinary Catheter: Yes Medications and DC Order Prescriptions: New dextrose [Glutose-15] 40 % Gel 15 - 30 g PO UD PRNQty: 0 RF: 0 acetaminophen 500 mg Tablet 1,000 mg PO Q8H PRNQty: 0 RF: 0 glucose [Dex4 Glucose] 4 gram Tablet,Chewable 4 - 8 tabs PO UD PRNQty: 0 RF: 0 folic acid 1 mg Tablet 1 mg PO QAM Qty: 0 RF: 0 dextrose 50 % in water (D50W) Syringe 25 - 50 ml IV UD PRNQty: 0 RF: 0 Atrovent HFA 17 mcg/actuation Hfa Aerosol Inhaler 1 puff inhalation QIDR Qty: 0 RF: 0 heparin, porcine (PF) 5,000 unit/0.5 mL Syringe 7,500 unit subcut Q8 Qty: 0 RF: 0 ondansetron HCl (PF) 4 mg/2 mL Solution 4 mg IV Q6H PRNQty: 0 RF: 0 Carbohydrates For Hypoglycemia 15 - 30 g PO UD PRNQty: 0 RF: 0 insulin aspart U-100 [Novolog U-100 Insulin aspart] 100 unit/mL Solution 0 unit SC ACHS Qty: 0 RF: 0 insulin lispro [Humalog U-100 Insulin] 100 unit/mL Solution 0 unit SC PRN PRNQty: 0 RF: 0 insulin lispro [Humalog U-100 Insulin] 100 unit/mL Solution 1 dose Not Applicable ACHS Qty: 0 RF: 0 GlucaGen Diagnostic Kit 1 mg/mL Recon Soln 1 mg subcut UD PRNQty: 0 RF: 0 Continued atorvastatin 40 mg tablet 40 mg PO QPM Qty: 30 RF: 5 montelukast [Singulair] 10 mg tablet 10 mg PO QPM Qty: 30 RF: 5 levothyroxine 200 mcg tablet 200 mcg PO DAILY Qty: 30 RF: 5 azithromycin 250 mg tablet 250 mg PO MOWEFR Qty: 12 RF: 5 nitroglycerin 0.4 mg tablet, sublingual 0.4 mg SL UD RF: 0 (DME) Oxygen Home Liters Per Minute See Dose Instructions .ROUTE .MEDSUPPLY Qty: 1 RF: 0 albuterol sulfate [ProAir HFA] 90 mcg/actuation HFA aerosol inhaler 2 puff inhalation Q4H PRN (Reason: Shortness Of Breath) Qty: 18 RF: 5 insulin lispro [Humalog U-100 Insulin] 100 unit/mL solution 0 unit subcut DAILY RF: 0 (DME) nebulizers Misc See Rx Instructions miscellaneous .MEDSUPPLY Qty: 1 RF: 0 aspirin [Aspirin Low Dose] 81 mg Tablet,Delayed Release (Dr/Ec) 81 mg PO QAM RF: 0 Combivent Respimat 20-100 mcg/actuation Mist 1 puff INHALATION QID RF: 0 bupropion HCl 100 mg Tablet Sustained-Release 12 Hr 300 mg PO DAILY RF: 0 desloratadine [Clarinex] 5 mg Tablet 5 mg PO HS RF: 0 docusate sodium 100 mg Capsule 100 mg PO BID RF: 0 folic acid 1 mg Tablet 1 mg PO QAM RF: 0 multivitamin Tablet 1 tab PO QAM RF: 0 spironolactone 25 mg Tablet 25 mg PO QAM RF: 0 isosorbide mononitrate 60 mg Tablet Extended Release 24 Hr 60 mg PO QAM RF: 0 pantoprazole 40 mg Tablet,Delayed Release (Dr/Ec) 40 mg PO QAM RF: 0 topiramate 100 mg Tablet 100 mg PO QAM RF: 0 topiramate 100 mg Tablet 200 mg PO HS RF: 0 metoprolol tartrate 25 mg Tablet 12.5 mg PO BID RF: 0 ipratropium-albuterol 0.5 mg-3 mg(2.5 mg base)/3 mL Solution For Nebulization 3 ml INHALATION QID PRN (Reason: Shortness Of Breath Or Wheezing) RF: 0 potassium chloride 10 mEq Tablet Extended Release See Rx Instructions .ROUTE .COMPLEX RF: 0 betamethasone dipropionate 0.05 % Cream 1 applic TOPICAL BID PRN (Reason: Skin Irritation) RF: 0 ketoconazole 2 % Cream 1 applic TOPICAL BID RF: 0 clotrimazole 1 % Cream 1 applic TOPICAL BID RF: 0 lisinopril 2.5 mg Tablet 2.5 mg PO DAILY RF: 0 loratadine 10 mg Tablet 10 mg PO DAILY RF: 0 Discontinued torsemide 20 mg tablet See Rx Instructions .ROUTE .COMPLEX RF: 0 lorazepam [Ativan] 1 mg Tablet 1 mg PO Q8H PRN (Reason: Anxiety) RF: 0 metolazone 2.5 mg tablet 2.5 mg PO UD RF: 0 Discharge Orders: Discharge Order (Routine); Ordered 04/20/21 Ordered By: Herb Diaz Admission Data Admit Date/Time: 04/14/21 21:02 Attending Provider: Ofe Mcgee Admit Provider: Surya Morton Primary Care Provider: Ofe Mcgee Other [facility] Solis Sparrow ; [facility] ; Patrick Mansfield Other Interventions: Discharge Summary Assessment (RN) Last Done: 04/20/21 09:24 Supervising Physician Co-Signing Physician Notes Resident Physician Supervision Note: I independently interviewed and examined the patient and verified the pappas history and physical, reviewed labs and image studies and agree with resident Dr. Diaz findings and care plan. Resident Activity Tracking Resident Involvement: Resident Care Provided Care Provided: Adult Hospital Medicine CBC Results Results Complete Blood Count Results: RBC 3.87 M/uL (4.2-5.4) L 04/20/21 WBC 12.15 K/uL (4.8-10.8) H 04/20/21 Hgb 11.1 g/dL (12.0-16.0) L 04/20/21 Hct 35.4 % (37-47) L 04/20/21 Plt Count 319 K/uL (130-400) 04/20/21 Chemistry (BMP) Results BMP Results: Sodium 136 mmol/L (136-145) 04/20/21 Potassium 3.6 mmol/L (3.5-5.1) 04/20/21 Chloride 101 mmol/L (98-107) 04/20/21 BUN 63 mg/dl (7-18) H 04/20/21 Creatinine 1.90 mg/dl (0.6-1.2) H 04/20/21 Glucose 129 mg/dl (70-99) H 04/20/21
--- NOTE | 2021-05-15 08:11 | Coding Query ---
CODING QUERY To promote full compliance with coding requirements relating to patient care, provider participation is requested in all cases of ball maker uncertainty. Please assist us with the question(s) below: Coding Question(s): Per progress note on 04/16, shortness of breath likely secondary to CHF exacerbation. Discharge summary states, shortness of breath likely multifactorial secondary to COPD coupled with obesity hypoventilation, heart failure, and possible viral infection. Unlikely this was secondary to CHF exacerbation Discharge diagnosis is stating CHF. This is conflicting documentation. Please clarify etiology of shortness of breath below: (x ) COPD w/ Obesity Hypoventilation ( ) CHF ( ) Possible Viral Infection ( ) Other Please Explain: Thank you Donald Ann Principal Diagnosis: "that condition established after study, to be chiefly responsible for occasioning the admission of the patient to the hospital for care." Co-Existing Principal Diagnosis: "when two or more diagnoses equally meet the criteria for principal diagnosis as determined by the circumstances of admission, diagnostic work up, and/or therapy provided, and the Alphabetic Index, Tabular List, or another coding guideline does not provide sequencing direction, any one of the diagnoses may be sequenced first." "When the physician has documented what appears to be a current diagnosis in the body of the record, but has not included the diagnosis in the final diagnostic statement, the physician should be asked whether the diagnosis should be added." (Source Coding [facility] 2 QTR90. p3-4) ALMAZ
== END 2021-04-20 10:18 | DRG 191 ==
LOC: ED 16:28 → SUATTDRO 21:02 → 2W 21:02

== ENCOUNTER 2022-03-23 12:36 | Inpatient (IN) ==
[2022-03-23] MEDS ORDERED: methylPREDNISolone 125 MG/2 ML VIAL IV STA (12:43)
[2022-03-23] MEDS ORDERED: ALBUT/IPRATROP 3MG/0.5MG NEB 3 ML VIAL NEB STA ×3 (12:43→14:35)
--- NOTE | 2022-03-23 13:17 | Emergency Department Note ---
History of Present Illness General Chief complaint: Shortness of Breath/Dyspnea Time Seen by Provider: 03/23/22 12:40 History of Present Illness Provider complaint: Shortness of breath rash Onset (ago): day(s) 1 Associated symptoms: + rash and + shortness of breath; no chest pain, no cough, no fever/chills, no headaches or no nausea/vomiting 66-year-old female presents emergency department for shortness of breath and rash. Patient reports that yesterday she started taking prednisone for a rash on her inner thighs and then it started bleeding which caused her to bleed a great amount. Patient reports she started having difficulty breathing today. No fevers. No recent travel. No exogenous hormone usage. Home Medications Medication Instructions Recorded Confirmed Type aspirin 81 mg tablet,delayed 81 mg PO QAM 04/06/19 03/22/22 History release (Aspirin Low Dose) bupropion HCl 100 mg tablet,12 hr 100 - 200 mg PO BID 04/06/19 03/22/22 History sustained-release desloratadine 5 mg tablet 5 mg PO HS 04/06/19 03/22/22 History (Clarinex) docusate sodium 100 mg capsule 100 mg PO BID 04/06/19 03/22/22 History isosorbide mononitrate 60 mg 60 mg PO QAM 04/06/19 03/22/22 History tablet,extended release 24 hr metoprolol tartrate 25 mg tablet 25 mg PO BID 04/06/19 03/22/22 History multivitamin 1 tab PO QAM 04/06/19 03/22/22 History pantoprazole 40 mg tablet,delayed 40 mg PO QAM 04/06/19 03/22/22 History release spironolactone 25 mg tablet 25 mg PO QAM 04/06/19 03/22/22 History topiramate 100 mg tablet 100 - 200 mg PO AMHS 04/06/19 03/22/22 History Oxygen Home #1 ea 06/28/19 03/22/22 History nitroglycerin 0.4 mg sublingual 0.4 mg SL DIRECTED PRN tab 06/28/19 03/22/22 History tablet nebulizers #1 ea 12/24/20 03/22/22 Rx betamethasone dipropionate 0.05 % 1 applic TOPICAL BID PRN 02/27/21 03/22/22 History topical cream ipratropium 0.5 mg-albuterol 3 mg 3 ml INHALATION Q4 02/27/21 03/22/22 History (2.5 mg base)/3 mL nebulization soln lisinopril 2.5 mg tablet 2.5 mg PO QAM 02/27/21 03/22/22 History loratadine 10 mg tablet 10 mg PO PM 02/27/21 03/22/22 History potassium chloride 10 mEq 20 meq PO AMPM 02/27/21 03/22/22 History tablet,extended release folic acid 1 mg tablet 1 mg PO QAM #0 tab 04/19/21 03/22/22 Rx subcutaneous insulin pump (MiniMed #1 ea 05/11/21 03/22/22 History 630G Insulin Pump) empagliflozin 25 mg tablet 25 mg PO QAM #30 tab 05/16/21 03/22/22 Rx (Jardiance) lorazepam 1 mg tablet (Ativan) 1 mg PO DAILY PRN 08/20/21 03/22/22 History blood sugar diagnostic (Contour #300 ea 09/29/21 03/22/22 Rx Next Test Strips) albuterol sulfate 90 mcg/actuation 2 puff INHALATION Q4 PRN 11/25/21 03/22/22 History aerosol inhaler benzonatate 100 mg capsule 100 mg PO TID PRN 11/25/21 03/22/22 History ipratropium 20 mcg-albuterol 100 1 puff INHALATION UD 11/25/21 03/22/22 History mcg/actuation mist for inhalation (Combivent Respimat) torsemide 20 mg tablet 10 mg PO .EVERY AFTERNOON 11/25/21 03/22/22 History torsemide 20 mg tablet 20 mg PO QAM 11/25/21 03/22/22 History atorvastatin 40 mg tablet 40 mg PO QPM #90 tab 01/14/22 03/22/22 Rx montelukast 10 mg tablet 10 mg PO QPM #30 tab 01/28/22 03/22/22 Rx (Singulair) levothyroxine 200 mcg tablet 200 mcg PO QAM #90 tab 02/12/22 03/22/22 Rx insulin aspart U-100 100 unit/mL See Rx Instructions SUBCUT 02/16/22 03/22/22 Rx subcutaneous solution (Novolog .COMPLEX #270 ml U-100 Insulin aspart) Allergies Allergy/AdvReac Type Severity Reaction Status Date / Time amitriptyline Allergy Unknown ` Verified 03/23/22 14:09 gabapentin Allergy Unknown ` Verified 03/23/22 14:09 guaifenesin Allergy Unknown Unknown Verified 03/23/22 14:09 metformin Allergy Unknown ` Verified 03/23/22 14:09 Penicillins Allergy Unknown ` Verified 03/23/22 14:09 phenylephrine Allergy Unknown Unknown Verified 03/23/22 14:09 pseudoephedrine Allergy Unknown ` Verified 03/23/22 14:09 tetracycline Allergy Unknown ` Verified 03/23/22 14:09 doxycycline Allergy Unknown Verified 03/23/22 14:09 venlafaxine [From Effexor] Allergy Unknown Verified 03/23/22 14:09 Past Med/Surg History Medical History Ambulatory dysfunction Anxiety Breathlessness Bronchiectasis Chest pain CHF (congestive heart failure) Chronic respiratory failure CKD (chronic kidney disease), stage III COPD (chronic obstructive pulmonary disease) DM type 2 (diabetes mellitus, type 2) Dyslipidemia Fluid overload HTN (hypertension) Hypoventilation associated with obesity Insulin-requiring or dependent type II diabetes mellitus Migraine Morbid obesity MRSA (methicillin resistant staph aureus) culture positive "sputum 11/2015" Right ventricular dysfunction Sepsis Tracheostomy in place Surgical History History of appendectomy History of cholecystectomy History of hysterectomy History of tonsillectomy and adenoidectomy S/P IVC filter Family History Mother Coronary heart disease COPD (chronic obstructive pulmonary disease) Father Suicide Hung himself. Pt found him. Unknown Lung cancer Social History Smoking Status: Never smoker Second Hand Exposure: No; Hx Alcohol Use: No Hx Substance Use: No Preferred Language: Yi Communication Ability: Effective Visual Impairment: Limited Carton Stapler Required: No Beliefs That Will Affect Care: None marital status: Current Living Situation: Family Current Living Situation Comment: Lives with Daughter current occupational status: disabled Feels Safe at Home: Yes Assistive Devices: Glasses, Oxygen - at Night and Walker Review of Systems A total of 10 systems reviewed and were otherwise negative Physical Exam Vital Signs Vital Signs - 24 hr 03/23/22 12:40 03/23/22 13:19 03/23/22 13:34 Temperature 36.6 C Temperature Source Oral Pulse Rate 85 Pulse Rate [Right Finger] 80 Respiratory Rate 30 H 24 Respiratory Effort / Characteristics Spontaneous Short of Breath Splinting (from pain) Non-Labored Spontaneous Respiratory Depth Normal Respiratory Pattern Tachypnea Blood Pressure 105/55 L Blood Pressure [Left Arm] Blood Pressure Mean 71 Blood Pressure Mean [Left Arm] Blood Pressure Position Sitting Pulse Oximetry 95 95 98 Oxygen Delivery Method Room Air Room Air Trach Collar Oxygen Flow Rate 6 Fraction of Inspired Oxygen 28 Sepsis Recent Fever Within 48 Hours No Sepsis New/Unexplained Change in Mental Status No Sepsis Action Taken by Nursing No Action Required 03/23/22 13:54 Temperature Temperature Source Pulse Rate Pulse Rate [Right Finger] 81 Respiratory Rate 22 Respiratory Effort / Characteristics Respiratory Depth Respiratory Pattern Blood Pressure Blood Pressure [Left Arm] 128/63 Blood Pressure Mean Blood Pressure Mean [Left Arm] 84 Blood Pressure Position Pulse Oximetry 97 Oxygen Delivery Method Trach Collar Oxygen Flow Rate 8 Fraction of Inspired Oxygen Sepsis Recent Fever Within 48 Hours Sepsis New/Unexplained Change in Mental Status Sepsis Action Taken by Nursing Physical Exam HENT: Exam performed. -Head: Normocephalic and atraumatic. -Right Ear: External ear normal. No mastoid tenderness. -Left Ear: External ear normal. No mastoid tenderness. -Mouth/Throat: The oropharynx is clear and moist. No trismus in the jaw. No dental abscesses or uvula swelling. No oropharyngeal exudate or tonsillar abscesses. EYES: Conjunctivae and EOM are normal. Pupils are equal, round, and reactive to light. Right eye exhibits no discharge. Left eye exhibits no discharge. No scleral icterus. NECK:Neck supple. No JVD present. Tracheostomy in place. CV: Normal rate, regular rhythm, normal heart sounds and intact distal pulses. T here is no peripheral edema. Palpable radial pulses bue. PULM/CHEST: Diffuse expiratory wheezes bilaterally. ABD: The abdomen is soft and obese. SKIN: Excoriations over her bilateral inner thighs with some mild skin breakdown and some mild oozing. No active extravasation. No overlying erythema or warmth. Nikolsky negative. No vesicles. PSYCH: She has a normal mood and affect. Behavior is normal. Judgment and thought content normal. Course Course 1240: The patient was evaluated in room B1. A complete history and physical exam was performed Cardiac monitoring: An order was placed for continuous cardiac monitoring. The monitor shows a rate of 80 with sinus rhythm 1436: Vital signs stable.Labs show hemoglobin of 10.9. No leukocytosis. Venous pH 7.28 with venous PCO2 of 60. Creatinine 1.94. Troponin and proBNP within normal limits. On reassessment the patient is still having wheezing. She states she feels better after DuoNeb treatments. Patient will be admitted to the [facility]ist team Dr. Mejia for COPD exacerbation. Administered Medications Discontinued Medications Albuterol (Albut/Ipratrop 3mg/0.5mg Neb 3 Ml Vial) 3 ml NEB NOW STA; Protocol Stop: 03/23/22 12:44 Last Admin: 03/23/22 13:16 Dose: 3 ml Documented by: [id number] Methylprednisolone (Methylprednisolone 125 Mg/2 Ml Vial) 125 mg IV NOW STA Stop: 03/23/22 12:44 Last Admin: 03/23/22 12:59 Dose: 125 mg Documented by: [id number] Medical Decision Making Laboratory Data Result diagrams: 03/23/22 12:54 03/23/22 12:54 Lab Results 03/23/22 03/23/22 03/23/22 Range/Units 12:54 12:54 12:54 WBC 8.80 (4.8-10.8) K/uL RBC 4.00 L (4.2-5.4) M/uL Hgb 10.9 L (12.0-16.0) g/dL Hct 38.0 (37-47) % MCV 95.0 (80-100) fL MCH 27.3 (25-34) pg MCHC 28.7 L (32-36) g/dL RDW Std Deviation 58.5 H (36.4-46.3) fL RDW Coeff of Amee 16.8 H (11.5-14.5) % Plt Count 270 (130-400) K/uL MPV 9.6 (7.4-10.4) fL Immature Gran % (Auto) 1.4 % Neut % (Auto) 70.8 % Lymph % (Auto) 17.7 % Vermillion % (Auto) 7.0 % Eos % (Auto) 2.8 % Baso % (Auto) 0.3 % Neut # (Auto) 6.22 (1.4-6.5) K/uL Lymph # (Auto) 1.56 (1.2-3.4) K/uL [place]illion # (Auto) 0.62 H (0.11-0.59) K/uL Eos # (Auto) 0.25 (0-0.5) K/uL Baso # (Auto) 0.03 (0-0.2) K/uL Immature Gran # (Auto) 0.12 H (0.00-0.02) K/uL PT 10.6 (9.0-12.0) Seconds INR 1.0 (0.9-1.1) APTT 24.5 (21.0-31.0) Seconds PTT Ratio 0.9 VBG pH (7.36-7.41) VBG pCO2 (38-50) mmHg VBG pO2 mmHg VBG HCO3 mmol/L VBG O2 Saturation % VBG Base Excess mEq/L Barometric Pressure mm/Hg Sodium 137 (136-145) mmol/L Potassium 4.4 (3.5-5.1) mmol/L Chloride 103 (98-107) mmol/L Carbon Dioxide 27 (21-32) mmol/L Anion Gap 7 (3-11) BUN 36 H (6-23) mg/dl Creatinine 1.94 H (0.6-1.2) mg/dl Est Cr Clr Drug Dosing 46.9 ml/min Est GFR ( Amer) 30.7 ml/min Est GFR (Non-Af Amer) 26.5 ml/min BUN/Creatinine Ratio 18.6 (10-20) Glucose 274 H (70-99(Fasting)) mg/dl Calcium 9.1 (8.5-10.1) mg/dl Magnesium 2.1 (1.7-2.4) mg/dl Troponin I High Sens (0-14) pg/ml B-Natriuretic Peptide (0-100) pg/ml 03/23/22 03/23/22 03/23/22 Range/Units 12:54 12:54 12:57 WBC (4.8-10.8) K/uL RBC (4.2-5.4) M/uL Hgb (12.0-16.0) g/dL Hct (37-47) % MCV (80-100) fL MCH (25-34) pg MCHC (32-36) g/dL RDW Std Deviation (36.4-46.3) fL RDW Coeff of Amee (11.5-14.5) % Plt Count (130-400) K/uL MPV (7.4-10.4) fL Immature Gran % (Auto) % Neut % (Auto) % Lymph % (Auto) % Vermillion % (Auto) % Eos % (Auto) % Baso % (Auto) % Neut # (Auto) (1.4-6.5) K/uL Lymph # (Auto) (1.2-3.4) K/uL [place]illion # (Auto) (0.11-0.59) K/uL Eos # (Auto) (0-0.5) K/uL Baso # (Auto) (0-0.2) K/uL Immature Gran # (Auto) (0.00-0.02) K/uL PT (9.0-12.0) Seconds INR (0.9-1.1) APTT (21.0-31.0) Seconds PTT Ratio VBG pH 7.28 L (7.36-7.41) VBG pCO2 60 H (38-50) mmHg VBG pO2 28 mmHg VBG HCO3 28 mmol/L VBG O2 Saturation < 60.0 % VBG Base Excess -0.1 mEq/L Barometric Pressure 732.8 mm/Hg Sodium (136-145) mmol/L Potassium (3.5-5.1) mmol/L Chloride (98-107) mmol/L Carbon Dioxide (21-32) mmol/L Anion Gap (3-11) BUN (6-23) mg/dl Creatinine (0.6-1.2) mg/dl Est Cr Clr Drug Dosing ml/min Est GFR ( Amer) ml/min Est GFR (Non-Af Amer) ml/min BUN/Creatinine Ratio (10-20) Glucose (70-99(Fasting)) mg/dl Calcium (8.5-10.1) mg/dl Magnesium (1.7-2.4) mg/dl Troponin I High Sens 10.2 (0-14) pg/ml B-Natriuretic Peptide 26 (0-100) pg/ml Imaging Data Radiologist's Impression: Chest X-Ray 03/23/22 12:44 XR chest 1V portable HISTORY: Shortness of breath. COMPARISON: Chest 02/25/2022. FINDINGS: There are low lung volumes. The heart remains moderately enlarged. No new focal lung consolidations to suggest pneumonia. Tracheostomy tube appears in good position. No pneumothorax. No pleural effusions. There is mild central pulmonary vascular congestion without overt edema. This has improved in the interval. IMPRESSION: Cardiomegaly with improvement in the mild pulmonary vascular congestion. ACT 112: Negative or not required by law. Electronically signed by: Geo Arenas M.D. 03/23/2022 1:19 PM ECG Data Indication: + SOB/dyspnea Rate (beats per minute): 85 Rhythm: + normal sinus ECG Intervals/blocks: + Right Bundle branch block, + Normal TX and + Normal QT-c ECG ST segments: + Normal ST segments Comparison ECG Date: from (November 2021) Change: no significant change MDM Narrative Vital signs stable.Labs show hemoglobin of 10.9. No leukocytosis. Venous pH 7.28 with venous PCO2 of 60. Creatinine 1.94. Troponin and proBNP within normal limits. On reassessment the patient is still having wheezing. She states she feels better after DuoNeb treatments. Patient will be admitted to the [facility] hospitalist team Dr. Mejia for COPD exacerbation. Impression & Plan COPD (chronic obstructive pulmonary disease) Discharge Plan Visit Data Chief Complaint: Shortness of Breath/Dyspnea ED Provider: Washington Diaz Discharge Problem: COPD (chronic obstructive pulmonary disease) Patient Disposition: Admitted As Inpatient Forms Stand Alone Forms: My [facility] Prescriptions Prescriptions: No Action Jardiance 25 mg tablet 25 mg PO QAM Qty: 30 RF: 5 (DME) Contour Next Test Strips Strip See Rx Instructions .ROUTE .MEDSUPPLY Qty: 300 RF: 3 atorvastatin 40 mg tablet 40 mg PO QPM Qty: 90 RF: 1 montelukast [Singulair] 10 mg tablet 10 mg PO QPM Qty: 30 RF: 5 levothyroxine 200 mcg tablet 200 mcg PO QAM Qty: 90 RF: 1 insulin aspart U-100 [Novolog U-100 Insulin aspart] 100 unit/mL solution See Rx Instructions subcut .COMPLEX Qty: 270 RF: 2 nitroglycerin 0.4 mg tablet, sublingual 0.4 mg SL DIRECTED PRN (Reason: Chest Pain) RF: 0 (DME) Oxygen Home Liters Per Minute See Dose Instructions .ROUTE .MEDSUPPLY Qty: 1 RF: 0 (DME) nebulizers Misc See Rx Instructions miscellaneous .MEDSUPPLY Qty: 1 RF: 0 (DME) MiniMed 630G Insulin Pump Misc See Rx Instructions .ROUTE .MEDSUPPLY Qty: 1 RF: 0 lorazepam [Ativan] 1 mg tablet 1 mg PO DAILY PRN (Reason: Anxiety) RF: 0 aspirin [Aspirin Low Dose] 81 mg Tablet,Delayed Release (Dr/Ec) 81 mg PO QAM RF: 0 bupropion HCl 100 mg Tablet Sustained-Release 12 Hr 100 - 200 mg PO BID RF: 0 desloratadine [Clarinex] 5 mg Tablet 5 mg PO HS RF: 0 docusate sodium 100 mg Capsule 100 mg PO BID RF: 0 multivitamin Tablet 1 tab PO QAM RF: 0 spironolactone 25 mg Tablet 25 mg PO QAM RF: 0 isosorbide mononitrate 60 mg Tablet Extended Release 24 Hr 60 mg PO QAM RF: 0 pantoprazole 40 mg Tablet,Delayed Release (Dr/Ec) 40 mg PO QAM RF: 0 topiramate 100 mg Tablet 100 - 200 mg PO AMHS RF: 0 metoprolol tartrate 25 mg Tablet 25 mg PO BID RF: 0 ipratropium-albuterol 0.5 mg-3 mg(2.5 mg base)/3 mL Solution For Nebulization 3 ml INHALATION Q4 RF: 0 potassium chloride 10 mEq Tablet Extended Release 20 meq PO AMPM RF: 0 betamethasone dipropionate 0.05 % Cream 1 applic TOPICAL BID PRN (Reason: Skin Irritation) RF: 0 lisinopril 2.5 mg Tablet 2.5 mg PO QAM RF: 0 loratadine 10 mg Tablet 10 mg PO PM RF: 0 benzonatate 100 mg capsule 100 mg PO TID PRN (Reason: Cough) RF: 0 torsemide 20 mg tablet 20 mg PO QAM RF: 0 torsemide 20 mg tablet 10 mg PO .EVERY AFTERNOON RF: 0 albuterol sulfate 90 mcg/actuation HFA aerosol inhaler 2 puff INHALATION Q4 PRN (Reason: Shortness Of Breath) RF: 0 Combivent Respimat 20-100 mcg/actuation Mist 1 puff INHALATION UD RF: 0 folic acid 1 mg Tablet 1 mg PO QAM Qty: 0 RF: 0 Referrals Referrals: Ofe Mcgee MD [Primary Care Provider] -
[2022-03-23 13:18] LABS: Basophils # (auto) 0.03 K/uL (0-0.2); Basophils % (auto) 0.3 %; Eosinophils # (auto) 0.25 K/uL (0-0.5); Eosinophils % (auto) 2.8 %; Hemoglobin 10.9 g/dL (12.0-16.0); Immature Granulocytes # (auto) 0.12 K/uL (0.00-0.02); Immature Granulocytes % (auto) 1.4 %; Lymphocytes # (auto) 1.56 K/uL (1.2-3.4); Lymphocytes % (auto) 17.7 %; Mean Corpuscular Hemoglobin 27.3 pg (25-34); Mean Corpuscular Hgb Conc 28.7 g/dL (32-36); Mean Platelet Volume 9.6 fL (7.4-10.4); Monocytes # (auto) 0.62 K/uL (0.11-0.59); Neutrophils # (auto) 6.22 K/uL (1.4-6.5); Neutrophils % (auto) 70.8 %; Platelet Count 270 K/uL (130-400); RDW Coefficient of Variation 16.8 % (11.5-14.5); RDW Standard Deviation 58.5 fL (36.4-46.3)
--- NOTE | 2022-03-23 13:21 | XRay Report ---
XR chest 1V portable HISTORY: Shortness of breath. COMPARISON: Chest 02/25/2022. FINDINGS: There are low lung volumes. The heart remains moderately enlarged. No new focal lung consol idations to suggest pneumonia. Tracheostomy tube appears in good position. No pneumothorax. No pleura l effusions. There is mild central pulmonary vascular congestion without overt edema. This has improv ed in the interval. IMPRESSION: Cardiomegaly with improvement in the mild pulmonary vascular congestion. ACT 112: Negative or not required by law. Electronically signed by: Geo Arenas M.D. 03/23/2022 1:19 PM
[2022-03-23 13:22] LABS: Base Excess VBG -0.1 mEq/L; HCO3 VBG 28 mmol/L; PCO2 VBG 60 mmHg (38-50); PO2 VBG 28 mmHg; pH VBG 7.28 (7.36-7.41)
[2022-03-23 13:30] LABS: Partial Thromboplastin Ratio 0.9; Partial Thromboplastin Time 24.5 Seconds (21.0-31.0); Prothrombin Time 10.6 Seconds (9.0-12.0)
[2022-03-23 13:52] LABS: BUN Creatinine Ratio 18.6 (10-20); Calcium 9.1 mg/dl (8.5-10.1); Creatinine Clr Calc Pharmacy 46.9 ml/min; Est GFR (African American) 30.7 ml/min; Est GFR (Non-African American) 26.5 ml/min; Magnesium 2.1 mg/dl (1.7-2.4); Potassium 4.4 mmol/L (3.5-5.1)
[2022-03-23 14:27] LABS: Oxygen Saturation VBG < 60.0 %
--- NOTE | 2022-03-23 15:39 | History & Physical Report ---
Date of Service March 23, 2022 Assessment & Plan (1) Cellulitis and abscess of leg: Plan: Cellulitis and abscess of leg and buttock- Patient feels a secondary to recent use of prednisone Small area of drainage Minimal area involvement of perineum Daptomycin 4 mg/kg IV daily aztreonam 2 g IV every 8 hours Consult wound care Avoid prednisone History of MRSA infection Hold empagliflozin (2) Cellulitis and abscess of buttock: Plan: See above (3) Hypothyroidism (acquired): Plan: Continue levothyroxine (4) CKD (chronic kidney disease) stage 4, GFR 15-29 ml/min: Plan: Creatinine 1.94 upon admission, with range 1.42-2.36 Hold lisinopril Follow serial laboratories (5) GERD (gastroesophageal reflux disease): (6) MRSA infection: Plan: See above (7) COPD (chronic obstructive pulmonary disease): Plan: Continue routine inhalers and nebs (8) Tracheostomy in place: Plan: Routine trach collar care (9) DM type 2 (diabetes mellitus, type 2): Plan: Place on Accu-Cheks before meals and at bedtime with NovoLog coverage per scale Hold empagliflozin Place on Accu-Cheks before meals and at bedtime NovoLog coverage per scale Check hemoglobin A1c (10) Anxiety: Plan: Anxiety with depression- Continue bupropion, Lyrica an topiramate (11) Depression: Plan: See above (12) Edema leg: Plan: Continue torsemide, change dosing to 20 mg daily History of Present Illness Chief Complaint: The patient presents to the emergency department with chronic shortness of breath, for which she Recently completed a course of prednisone, and had a rash develop in her thighs and groin area a couple days ago, that she attributes to prednisone use, that opened and drained over the past 24 hours Primary Care Provider: Ofe Mcgee MD The patient is a 66-year-old female with past medical history including hypothyroidism, CKD stage IV, diabetes mellitus, metabolic syndrome, morbid obesity, GERD, cellulitis, anxiety, chronic diastolic CHF, COPD, cor pulmonale, CAD, history of MRSA infection, tracheostomy dependence, RASHAAD, chronic respiratory failure, hypertension, obesity hypoventilation syndrome and history of IVC filter placement. She presents the emergency department as noted above, with her principal concern being the draining rash in her groin area. Allergies Allergy/AdvReac Type Severity Reaction Status Date / Time Penicillins Allergy Intermediate Hives Verified 03/23/22 15:10 amitriptyline Allergy Unknown Unknown Verified 03/23/22 15:10 doxycycline Allergy Unknown Unknown Verified 03/23/22 15:10 guaifenesin Allergy Unknown Unknown Verified 03/23/22 15:10 metformin Allergy Unknown Unknown Verified 03/23/22 15:10 phenylephrine Allergy Unknown Unknown Verified 03/23/22 15:10 pseudoephedrine Allergy Unknown Unknown Verified 03/23/22 15:10 tetracycline Allergy Unknown Unknown Verified 03/23/22 15:10 venlafaxine [From Effexor] Allergy Unknown Unknown Verified 03/23/22 15:10 gabapentin AdvReac Intermediate BECOMES Verified 03/23/22 15:10 AGGRESSIVE Home Medications Medication Instructions Recorded Confirmed Type aspirin 81 mg tablet,delayed 81 mg PO QAM 04/06/19 03/23/22 History release (Aspirin Low Dose) bupropion HCl 100 mg tablet,12 hr See Rx Instructions .ROUTE .COMPLEX 04/06/19 03/23/22 History sustained-release docusate sodium 100 mg capsule 100 mg PO BID 04/06/19 03/23/22 History isosorbide mononitrate 60 mg 60 mg PO QAM 04/06/19 03/23/22 History tablet,extended release 24 hr metoprolol tartrate 25 mg tablet 12.5 mg PO BID 04/06/19 03/23/22 History multivitamin 1 tab PO QAM 04/06/19 03/23/22 History pantoprazole 40 mg tablet,delayed 40 mg PO QAM 04/06/19 03/23/22 History release spironolactone 25 mg tablet 25 mg PO QAM 04/06/19 03/23/22 History topiramate 100 mg tablet See Rx Instructions .ROUTE .COMPLEX 04/06/19 03/23/22 History Oxygen Home #1 ea 06/28/19 03/22/22 History nitroglycerin 0.4 mg sublingual 0.4 mg SL DIRECTED PRN tab 06/28/19 03/23/22 History tablet nebulizers #1 ea 12/24/20 03/22/22 Rx betamethasone dipropionate 0.05 % 1 applic TOPICAL BID PRN 02/27/21 03/23/22 History topical cream ipratropium 0.5 mg-albuterol 3 mg 3 ml INHALATION QID PRN 02/27/21 03/23/22 History (2.5 mg base)/3 mL nebulization soln lisinopril 2.5 mg tablet 2.5 mg PO QAM 02/27/21 03/23/22 History potassium chloride 10 mEq 20 meq PO AMPM 02/27/21 03/23/22 History tablet,extended release folic acid 1 mg tablet 1 mg PO QAM #0 tab 04/19/21 03/23/22 Rx subcutaneous insulin pump (MiniMed #1 ea 05/11/21 03/22/22 History 630G Insulin Pump) lorazepam 1 mg tablet (Ativan) 1 mg PO Q8H PRN 08/20/21 03/23/22 History blood sugar diagnostic (Contour #300 ea 09/29/21 03/22/22 Rx Next Test Strips) albuterol sulfate 90 mcg/actuation 2 puff INHALATION Q4 PRN 11/25/21 03/23/22 History aerosol inhaler ipratropium 20 mcg-albuterol 100 1 puff INHALATION QID 11/25/21 03/23/22 History mcg/actuation mist for inhalation (Combivent Respimat) torsemide 20 mg tablet See Rx Instructions .ROUTE .COMPLEX 11/25/21 03/23/22 History atorvastatin 40 mg tablet 40 mg PO QPM #90 tab 01/14/22 03/23/22 Rx montelukast 10 mg tablet 10 mg PO QPM #30 tab 01/28/22 03/23/22 Rx (Singulair) acetaminophen 500 mg tablet 500 mg PO QPM 03/23/22 03/23/22 History (Tylenol Extra Strength) acidophilus 100 million 1 cap PO DAILY 03/23/22 03/23/22 History cell-pectin, citrus 10 mg capsule azithromycin 250 mg tablet 250 mg PO DIRECTED 03/23/22 03/23/22 History empagliflozin 25 mg tablet 25 mg PO DAILY 03/23/22 03/23/22 History (Jardiance) hydrogen peroxide 3 % solution 1 applic TOPICAL DIRECTED PRN 03/23/22 03/23/22 History insulin lispro 100 unit/mL 0 unit CONTINUOUS SUBCUTANEOUS 03/23/22 03/23/22 History subcutaneous solution (Humalog INFUSION USEASDIRECTD U-100 Insulin) levothyroxine 200 mcg tablet 200 mcg PO DAILYBB 03/23/22 03/23/22 History pregabalin 100 mg capsule (Lyrica) 100 mg PO TID 03/23/22 03/23/22 History Past Med/Surg History Medical History Ambulatory dysfunction Anxiety Breathlessness Bronchiectasis Chest pain CHF (congestive heart failure) Chronic respiratory failure CKD (chronic kidney disease), stage III COPD (chronic obstructive pulmonary disease) DM type 2 (diabetes mellitus, type 2) Dyslipidemia Fluid overload HTN (hypertension) Hypoventilation associated with obesity Insulin-requiring or dependent type II diabetes mellitus Migraine Morbid obesity MRSA (methicillin resistant staph aureus) culture positive "sputum 11/2015" Right ventricular dysfunction Sepsis Tracheostomy in place Surgical History History of appendectomy History of cholecystectomy History of hysterectomy History of tonsillectomy and adenoidectomy S/P IVC filter Family History Mother Coronary heart disease COPD (chronic obstructive pulmonary disease) Father Suicide Hung himself. Pt found him. Unknown Lung cancer Social History Smoking Status: Never smoker Second Hand Exposure: No; Do You Dip or Chew Tobacco: No; Tobacco Cessation Education Requested by Patient: No Hx Alcohol Use: No Hx Substance Use: No Preferred Language: Irish Communication Ability: Effective Visual Impairment: Limited Hematology Oncology Consultant Required: No Beliefs That Will Affect Care: None marital status: Current Living Situation: Family Current Living Situation Comment: Lives with Daughter current occupational status: disabled Other Information That Helps Us Care for You: No Feels Safe at Home: Yes Safety Concerns: Feels Safe At This Time Assistive Devices: Walker and Wheelchair Review of Systems Review of Systems: The patient denies chest pain, palpitations, lower extremity swelling, sore throat, fevers, chills, sweats, nausea, vomiting, diarrhea , constipation, abdominal pain, pelvic pain, blood in urine or stool, dysuria, urinary frequency or urgency, lightheadedness, dizziness, headache, memory loss, loss of consciousness, imbalance, focal or generalized weakness, numbness or tingling in arms or legs, generalized arthralgias or myalgias, back or neck pain, or night sweats. The review of systems is otherwise negative other than for that already noted above, and at least 10 systems have been reviewed. Physical Exam Physical Exam: The patient is awake, alert and oriented 3, well developed and well nourished, normocephalic and atraumatic, lying in bed and in no acute distress. HEENT--PERRL, EOMI, mucous membranes and oropharynx normal Neck--supple. No JVD. No bruits. Thyroid normal, trachea midline, no adenopathy. Heart--normal S1 and S2. No murmurs, rubs or gallops. Lungs--few scattered wheezes bilaterally. no respiratory distress, no accessory muscle use. Abdomen--normal bowel sounds and soft. Nontender. Nondistended. Morbidly obese Extremities--no cyanosis or clubbing. 1+ bilateral pretibial pitting edema Dermatologic--erythema and induration in her thighs bilaterally and buttock perineal area Neurologic--cranial nerves II through XII grossly intact. Rheumatologic--limited exam due to body habitus Psychiatric--normal affect. Results & Data Results & Data ([facility]) Vital Signs (Past 12 Hours) Vital Signs Temp Pulse Pulse Resp BP BP Pulse Ox 03/23/22 13:54 81 22 128/63 97 03/23/22 13:34 80 24 98 03/23/22 13:19 95 03/23/22 12:40 36.6 C 85 30 H 105/55 L 95 Laboratory Results Laboratory Results WBC 8.80 K/uL (4.8-10.8) 03/23/22 12:54 RBC 4.00 M/uL (4.2-5.4) L 03/23/22 12:54 Hgb 10.9 g/dL (12.0-16.0) L 03/23/22 12:54 Hct 38.0 % (37-47) 03/23/22 12:54 MCV 95.0 fL (80-100) 03/23/22 12:54 MCH 27.3 pg (25-34) 03/23/22 12:54 MCHC 28.7 g/dL (32-36) L 03/23/22 12:54 RDW Std Deviation 58.5 fL (36.4-46.3) H 03/23/22 12:54 RDW Coeff of Amee 16.8 % (11.5-14.5) H 03/23/22 12:54 Plt Count 270 K/uL (130-400) 03/23/22 12:54 MPV 9.6 fL (7.4-10.4) 03/23/22 12:54 Immature Gran % (Auto) 1.4 % 03/23/22 12:54 Neut % (Auto) 70.8 % 03/23/22 12:54 Lymph % (Auto) 17.7 % 03/23/22 12:54 [place] % (Auto) 7.0 % 03/23/22 12:54 Eos % (Auto) 2.8 % 03/23/22 12:54 Baso % (Auto) 0.3 % 03/23/22 12:54 Neut # (Auto) 6.22 K/uL (1.4-6.5) 03/23/22 12:54 Lymph # (Auto) 1.56 K/uL (1.2-3.4) 03/23/22 12:54 [place] # (Auto) 0.62 K/uL (0.11-0.59) H 03/23/22 12:54 Eos # (Auto) 0.25 K/uL (0-0.5) 03/23/22 12:54 Baso # (Auto) 0.03 K/uL (0-0.2) 03/23/22 12:54 Immature Gran # (Auto) 0.12 K/uL (0.00-0.02) H 03/23/22 12:54 PT 10.6 Seconds (9.0-12.0) 03/23/22 12:54 INR 1.0 (0.9-1.1) 03/23/22 12:54 APTT 24.5 Seconds (21.0-31.0) 03/23/22 12:54 PTT Ratio 0.9 03/23/22 12:54 VBG pH 7.28 (7.36-7.41) L 03/23/22 12:57 VBG pCO2 60 mmHg (38-50) H 03/23/22 12:57 VBG pO2 28 mmHg 03/23/22 12:57 VBG HCO3 28 mmol/L 03/23/22 12:57 VBG O2 Saturation < 60.0 % 03/23/22 12:57 VBG Base Excess -0.1 mEq/L 03/23/22 12:57 Barometric Pressure 732.8 mm/Hg 03/23/22 12:57 Sodium 137 mmol/L (136-145) 03/23/22 12:54 Potassium 4.4 mmol/L (3.5-5.1) 03/23/22 12:54 Chloride 103 mmol/L (98-107) 03/23/22 12:54 Carbon Dioxide 27 mmol/L (21-32) 03/23/22 12:54 Anion Gap 7 (3-11) 03/23/22 12:54 BUN 36 mg/dl (6-23) H 03/23/22 12:54 Creatinine 1.94 mg/dl (0.6-1.2) H 03/23/22 12:54 Est Cr Clr Drug Dosing 46.9 ml/min 03/23/22 12:54 Est GFR ( Amer) 30.7 ml/min 03/23/22 12:54 Est GFR (Non-Af Amer) 26.5 ml/min 03/23/22 12:54 BUN/Creatinine Ratio 18.6 (10-20) 03/23/22 12:54 Glucose 274 mg/dl (70-99(Fasting)) H 03/23/22 12:54 POC Glucose 198 mg/dl (70-99) H 03/23/22 17:04 Calcium 9.1 mg/dl (8.5-10.1) 03/23/22 12:54 Magnesium 2.1 mg/dl (1.7-2.4) 03/23/22 12:54 Troponin I High Sens 10.2 pg/ml (0-14) 03/23/22 12:54 B-Natriuretic Peptide 26 pg/ml (0-100) 03/23/22 12:54 SARS-CoV-2, RNA, NAAT NEGATIVE (NEGATIVE) 03/23/22 14:12 Impressions Chest X-Ray 03/23/22 12:44 XR chest 1V portable HISTORY: Shortness of breath. COMPARISON: Chest 02/25/2022. FINDINGS: There are low lung volumes. The heart remains moderately enlarged. No new focal lung consolidations to suggest pneumonia. Tracheostomy tube appears in good position. No pneumothorax. No pleural effusions. There is mild central pulmonary vascular congestion without overt edema. This has improved in the interval. IMPRESSION: Cardiomegaly with improvement in the mild pulmonary vascular congestion. ACT 112: Negative or not required by law. Electronically signed by: Geo Arenas M.D. 03/23/2022 1:19 PM Code Status & VTE Plan Code Status Full code VTE Prophylaxis Plan VTE Prophylaxis will be ordered: Yes PG Care Time/CCT Total # of Minutes Spent Total Time Spent with Patient: Total time spent is greater than 50% in coordination of care (as documented) at patient's floor/unit and/or counseling patient: Coding Level of Care Code 65770 Initial Inpt Care Lvl 3 Diagnoses Cellulitis and abscess of leg L03.119; L02.419 Cellulitis and abscess of buttock L02.31; L03.317 Hypothyroidism (acquired) E03.9 CKD (chronic kidney disease) stage 4, GFR 15-29 ml/min N18.4 GERD (gastroesophageal reflux disease) K21.9 MRSA infection A49.02 COPD (chronic obstructive pulmonary disease) J44.[address] Z93.0 DM type 2 (diabetes mellitus, type 2) E11.9 Anxiety F41.9 Depression F32.9 Edema leg R60.0
[2022-03-23] MEDS ORDERED: ALBUTEROL HFA 8 GM INHALER INH PRN (16:26)
[2022-03-23] MEDS ORDERED: LORazepam 1 MG TAB PO PRN (16:26)
[2022-03-23] MEDS ORDERED: NITROGLYCERIN SL 0.4 MG/TAB TAB SL PRN (16:26)
[2022-03-23] MEDS ORDERED: HYDROGEN PEROXIDE 3% TOP PRN (16:26)
[2022-03-23] MEDS ORDERED: ALBUT/IPRATROP 3MG/0.5MG NEB 3 ML VIAL INH PRN (16:26)
[2022-03-23] MEDS ORDERED: IPRATROPIUM BROMIDE/ALBUTEROL respimat INH INH SCH (17:00)
[2022-03-23] MEDS ORDERED: DEXTROSE 50% 50 ML SYRINGE IV PRN (17:33)
[2022-03-23] MEDS ORDERED: GLUCAGON FOR INJ 1 MG VIAL SQ PRN (17:33)
[2022-03-23] MEDS ORDERED: ACETAMINOPHEN 325 MG TAB PO PRN (17:33)
[2022-03-23] MEDS ORDERED: GLUCOSE 40% GEL 15 GM TUBE PO PRN (17:33)
[2022-03-23] MEDS ORDERED: CARBOHYDRATES FOR HYPOGLYCEMIA PO PRN (17:33)
[2022-03-23] MEDS ORDERED: GLUCOSE 10 TABS/TUBE PO PRN (17:33)
[2022-03-23] MEDS: INSULIN ASPART PER UNIT SC SCH ×2 (18:15→20:17)
[2022-03-23] MEDS: AZTREONAM 2,000 MG in DEXTROSE 5% 100 ML IV SCH (19:14)
[2022-03-23] MEDS: ALBUTEROL HFA 8 GM INHALER INH SCH (19:45)
[2022-03-23] MEDS: IPRATROPIUM BROMIDE HFA INHALER INH SCH (19:45)
[2022-03-23] MEDS: ACETAMINOPHEN 500 MG TAB PO SCH (20:18)
[2022-03-23] MEDS: TOPIRAMATE 100 MG TAB PO SCH (20:18)
[2022-03-23] MEDS: buPROPion SR 100 MG TABCR PO SCH (20:19)
[2022-03-23] MEDS: DOCUSATE SODIUM 100 MG CAP PO SCH (20:19)
[2022-03-23] MEDS: POTASSIUM CHLORIDE CRTAB 20 MEQ TABCR PO SCH (20:20)
[2022-03-23] MEDS: METOPROLOL TARTRATE 25 MG TAB PO SCH (20:20)
[2022-03-23] MEDS: MONTELUKAST SODIUM 10 MG TABLET PO SCH (20:21)
[2022-03-23] MEDS: PREGABALIN 100 MG CAP PO SCH (20:22)
[2022-03-23] MEDS ORDERED: ATORVASTATIN 40 MG TAB PO SCH (21:00)
[2022-03-23] MEDS: DAPTOmycin 400 MG in SYRINGE 0 ML IV SCH (21:58)
[2022-03-23] MEDS: HEPARIN SOD 5,000 UNIT/0.5 ML VIAL SQ SCH (21:58)
[2022-03-24] MEDS: AZTREONAM 2,000 MG in DEXTROSE 5% 100 ML IV SCH ×3 (03:08→18:33)
[2022-03-24] MEDS: LEVOTHYROXINE SODIUM 200 MCG TABLET PO SCH (06:10)
[2022-03-24] MEDS: HEPARIN SOD 5,000 UNIT/0.5 ML VIAL SQ SCH ×3 (06:10→22:45)
[2022-03-24 06:48] LABS: Hematocrit (blood only) 38.5 % (37-47); Hemoglobin 11.4 g/dL (12.0-16.0); Mean Corpuscular Hemoglobin 27.9 pg (25-34); Mean Corpuscular Hgb Conc 29.6 g/dL (32-36); Mean Corpuscular Volume 94.1 fL (80-100); Mean Platelet Volume 9.5 fL (7.4-10.4); Platelet Count 304 K/uL (130-400); RDW Coefficient of Variation 16.8 % (11.5-14.5); RDW Standard Deviation 57.5 fL (36.4-46.3); Red Blood Count 4.09 M/uL (4.2-5.4)
[2022-03-24] MEDS: IPRATROPIUM BROMIDE HFA INHALER INH SCH ×4 (07:03→19:43)
[2022-03-24] MEDS: ALBUTEROL HFA 8 GM INHALER INH SCH ×4 (07:03→19:46)
[2022-03-24 07:15] LABS: Albumin Globulin Ratio 0.9 (0.9-2); Albumin Level 3.5 gm/dl (3.4-5.0); BUN Creatinine Ratio 20.2 (10-20); Bilirubin,Total 0.4 mg/dl (0.2-1.0); Calcium 9.1 mg/dl (8.5-10.1); Est GFR (African American) 31.9 ml/min; Est GFR (Non-African American) 27.5 ml/min; Globulin 3.8 gm/dl (2.5-4.0); Magnesium 2.2 mg/dl (1.7-2.4); Potassium 4.4 mmol/L (3.5-5.1); Total Protein 7.3 gm/dl (6.0-8.3)
[2022-03-24 07:20] LABS: Basophils # (auto) 0.01 K/uL (0-0.2); Basophils % (auto) 0.1 %; Eosinophils # (auto) 0.04 K/uL (0-0.5); Eosinophils % (auto) 0.3 %; Immature Granulocytes % (auto) 1.4 %; Lymphocytes # (auto) 2.17 K/uL (1.2-3.4); Lymphocytes % (auto) 14.8 %; Monocytes % (auto) 6.8 %; Neutrophils # (auto) 11.28 K/uL (1.4-6.5); Neutrophils % (auto) 76.6 %
[2022-03-24] MEDS ORDERED: MICONAZOLE NITRATE POWDER 43 GM EXT PRN (07:43)
[2022-03-24] MEDS: buPROPion SR 100 MG TABCR PO SCH ×2 (08:02→20:27)
[2022-03-24] MEDS: ASPIRIN 81 MG ECTAB PO SCH (08:02)
[2022-03-24] MEDS: TOPIRAMATE 100 MG TAB PO SCH ×2 (08:03→20:21)
[2022-03-24] MEDS: METOPROLOL TARTRATE 25 MG TAB PO SCH ×2 (08:03→20:22)
[2022-03-24] MEDS: TORSEMIDE 10 MG TAB PO SCH (08:03)
[2022-03-24] MEDS: DOCUSATE SODIUM 100 MG CAP PO SCH ×2 (08:03→20:27)
[2022-03-24] MEDS: MULTIVITAMIN TAB PO SCH (08:03)
[2022-03-24] MEDS: SPIRONOLACTONE 25 MG TAB PO SCH (08:03)
[2022-03-24] MEDS: PANTOprazole 40 MG TAB PO SCH (08:03)
[2022-03-24] MEDS: POTASSIUM CHLORIDE CRTAB 20 MEQ TABCR PO SCH ×2 (08:03→20:21)
[2022-03-24] MEDS: ISOSORBIDE MONO EXTENDED REL 60 MG TABCR PO SCH (08:03)
[2022-03-24] MEDS: FOLIC ACID 1 MG TAB PO SCH (08:03)
[2022-03-24] MEDS: ADVANCED PROBIOTIC 1250 MG CAPSULE PO SCH (08:03)
[2022-03-24] MEDS: PREGABALIN 100 MG CAP PO SCH ×3 (08:14→20:21)
[2022-03-24] MEDS: INSULIN ASPART PER UNIT SC SCH ×2 (08:14→12:28)
[2022-03-24 08:26] LABS: Estimated Average Glucose 197 mg/dl; Hemoglobin A1C 8.5 % (4.5-5.6)
--- NOTE | 2022-03-24 09:00 | Hospitalist Progress Note ---
Date of Service March 24, 2022 Assessment & Plan (1) Cellulitis and abscess of leg: Plan: Cellulitis and drainage of leg and buttock- Minimal area involvement of perineum and buttock Daptomycin 4 mg/kg IV daily plus Aztreonam 2 g IV every 8 hours Appreciate wound cares expertise History of MRSA infection Hold empagliflozin (2) Hypothyroidism (acquired): Plan: Continue levothyroxine (3) CKD (chronic kidney disease) stage 4, GFR 15-29 ml/min: Plan: Creatinine 1.94 upon admission, with range 1.42-2.36 resume ty i for renal protective affects (4) DM type 2 (diabetes mellitus, type 2): Plan: Place on Accu-Cheks before meals and at bedtime with NovoLog coverage per scale Hold empagliflozin use insulin pump for basal rate HGB a1c 8.5 on admission (5) GERD (gastroesophageal reflux disease): (6) MRSA infection: (7) COPD (chronic obstructive pulmonary disease): Plan: Continue routine inhalers and nebs, feels may have increased mucus, if issue consider mucolytic (8) Tracheostomy in place: Plan: Routine trach collar care (9) Anxiety: Plan: Anxiety with depression- Continue bupropion, Lyrica an topiramate (10) Edema leg: Plan: torsemide 20 mg daily Admission and Anticipated Discharge Date Admission Date: March 23, 2022 Subjective pt states she overall feels better is coughing some whitish mucus from trach LE cellulitis from skin abrasion is improving, wound nursing is seeing good appetite, no bowel movements yet Review of Systems Review of Systems: Mild to moderate distress and fatigue no headache, no visual changes no speech or swallowing issues no chest pain, pressure or palpitations Shortness of breath improved with treatment, cough of whitish mucus. no abdominal pain, nausea or vomiting, diarrhea or constipation no dysuria, hematuria or frequency no focal joint pain significant lower extremity swelling chronic venous stasis changes no back pain, CVA tenderness or radicular pain Skin with areas of open excoriation and a few deeper areas with surrounding erythema consistent with cellulitic changes to skin mostly on lower extremities worse on the left inner thigh no focal signs of weakness or numbness or altered sensation no complaints of anxiety or depression.. Physical Exam Physical Exam: The patient appeared well nourished and normally developed. she is morbidly obese with BMI of 72 Vital signs as documented. Head exam is normocephalic atraumatic Neck is with trachea in place, can speak if occludes end Lungs are coarse and diminshed bilaterally Cardiac exam, Rhythm is regular and distant Extremities are edematous and both contain areas of excoriation and erythema, worse on the left inner thigh Neurologic exam is alert and oriented, no focal loss of strength or sensation Skin is with chronic stasis dermatitis changes of LE b/l with acute cellulitis Psychologically is without concerns for anxiety or depression.. Results & Data Results & Data ([facility]) Vital Signs (Past 12 Hours) Vital Signs Temp Pulse Pulse Resp BP Pulse Ox 03/24/22 07:12 78 18 99 03/24/22 06:56 97.9 F 81 20 138/70 100 03/24/22 03:20 98.1 F 79 22 98 03/24/22 00:12 91 H 03/23/22 23:00 98.4 F 92 H 20 115/65 95 PG Care Time/CCT Total # of Minutes Spent Total Time Spent with Patient: Total time spent is greater than 50% in coordination of care (as documented) at patient's floor/unit and/or counseling patient: Coding Level of Care Code 51396 Subseq Hosp Care Lvl 2 Diagnoses Cellulitis and abscess of leg L03.119; L02.419 Hypothyroidism (acquired) E03.9 CKD (chronic kidney disease) stage 4, GFR 15-29 ml/min N18.4 GERD (gastroesophageal reflux disease) K21.9 MRSA infection A49.02 COPD (chronic obstructive pulmonary disease) J44.[address] Z93.0 DM type 2 (diabetes mellitus, type 2) E11.9 Anxiety F41.9 Edema leg R60.0
[2022-03-24] MEDS ORDERED: PHARMACY GLYCEMIC MGMT CONSULT PRN (15:33)
[2022-03-24] MEDS ORDERED: INSULIN HUMAN LISPRO (humaLOG) 100 UNITS/ML VIAL SC PRN (16:30)
[2022-03-24] MEDS: DAPTOmycin 400 MG in SYRINGE 0 ML IV SCH (20:20)
[2022-03-24] MEDS: MONTELUKAST SODIUM 10 MG TABLET PO SCH (20:26)
[2022-03-24] MEDS: ACETAMINOPHEN 500 MG TAB PO SCH (20:26)
[2022-03-24] MEDS ORDERED: INSULIN GLARGINE SOLOSTAR 100 UNITS/ML 3 ML PEN SC SCH (21:00)
[2022-03-25] MEDS: AZTREONAM 2,000 MG in DEXTROSE 5% 100 ML IV SCH ×3 (03:21→18:21)
[2022-03-25] MEDS: HEPARIN SOD 5,000 UNIT/0.5 ML VIAL SQ SCH (05:43)
[2022-03-25] MEDS: LEVOTHYROXINE SODIUM 200 MCG TABLET PO SCH (05:43)
[2022-03-25 06:44] LABS: Basophils # (auto) 0.03 K/uL (0-0.2); Basophils % (auto) 0.3 %; Eosinophils # (auto) 0.35 K/uL (0-0.5); Eosinophils % (auto) 3.1 %; Hematocrit (blood only) 39.1 % (37-47); Hemoglobin 11.6 g/dL (12.0-16.0); Immature Granulocytes # (auto) 0.22 K/uL (0.00-0.02); Lymphocytes # (auto) 2.27 K/uL (1.2-3.4); Lymphocytes % (auto) 20.3 %; Mean Corpuscular Hemoglobin 28.1 pg (25-34); Mean Corpuscular Hgb Conc 29.7 g/dL (32-36); Mean Corpuscular Volume 94.7 fL (80-100); Mean Platelet Volume 9.4 fL (7.4-10.4); Monocytes % (auto) 8.1 %; Neutrophils % (auto) 66.2 %; Platelet Count 301 K/uL (130-400); RDW Coefficient of Variation 17.2 % (11.5-14.5); RDW Standard Deviation 59.8 fL (36.4-46.3); Red Blood Count 4.13 M/uL (4.2-5.4); White Blood Count 11.17 K/uL (4.8-10.8)
[2022-03-25 07:08] LABS: Albumin Globulin Ratio 0.9 (0.9-2); Albumin Level 3.6 gm/dl (3.4-5.0); BUN Creatinine Ratio 21.4 (10-20); Bilirubin,Total 0.5 mg/dl (0.2-1.0); Creatinine Clr Calc Pharmacy 49.6 ml/min; Est GFR (African American) 33.2 ml/min; Est GFR (Non-African American) 28.6 ml/min; Globulin 3.8 gm/dl (2.5-4.0); Magnesium 2.2 mg/dl (1.7-2.4); Potassium 4.5 mmol/L (3.5-5.1); Total Protein 7.4 gm/dl (6.0-8.3)
[2022-03-25 07:15] LABS: Anisocytosis Present; Polychromasia 1+
[2022-03-25] MEDS: ALBUTEROL HFA 8 GM INHALER INH SCH ×4 (07:22→20:16)
[2022-03-25] MEDS: IPRATROPIUM BROMIDE HFA INHALER INH SCH ×4 (07:23→20:18)
--- NOTE | 2022-03-25 09:02 | Electrocardiogram Report ---
Test Reason : Blood Pressure : / mmHG Vent. Rate : 085 BPM Atrial Rate : 085 BPM P-R Int : 220 ms QRS Dur : 136 ms QT Int : 398 ms P-R-T Axes : 010 -40 013 degrees QTc Int : 473 ms Normal sinus rhythm with 1st degree A-V block Left axis deviation Right bundle branch block Possible Lateral infarct (cited on or before 25-NOV-2021) Abnormal ECG When compared with ECG of 25-NOV-2021 21:36, No significant change was found Confirmed by Nura López ([id number]) on 03/25/2022 9:01:33 AM Referred By: Aman Marley Confirmed By:Nura López
--- NOTE | 2022-03-25 10:34 | XRay Report ---
XR knee RT 1 or 2V routine CLINICAL HISTORY: fall in hospital. Right knee pain. COMPARISON STUDY: None. FINDINGS: Suboptimal evaluation of the right knee due to the patient positioning. Comminuted and disp laced fracture involving the distal metadiaphysis of the right femur. This demonstrates up to 2.2 cm of posterior displacement. IMPRESSION: Comminuted and displaced fracture involving the distal metadiaphysis of the right femur. ACT 112: Negative or not required by law. Electronically signed by: Geo Arenas M.D. 03/25/2022 10:32 AM
[2022-03-25] MEDS ORDERED: MoRPHine SULFATE 2 MG/ML CARP IV PRN (11:01)
[2022-03-25] MEDS: ADVANCED PROBIOTIC 1250 MG CAPSULE PO SCH (11:36)
[2022-03-25] MEDS: DOCUSATE SODIUM 100 MG CAP PO SCH ×2 (11:37→20:27)
[2022-03-25] MEDS: buPROPion SR 100 MG TABCR PO SCH ×2 (11:37→20:27)
[2022-03-25] MEDS: ASPIRIN 81 MG ECTAB PO SCH (11:37)
[2022-03-25] MEDS: PANTOprazole 40 MG TAB PO SCH (11:37)
[2022-03-25] MEDS: TORSEMIDE 10 MG TAB PO SCH (11:37)
[2022-03-25] MEDS: MULTIVITAMIN TAB PO SCH (11:37)
[2022-03-25] MEDS: ISOSORBIDE MONO EXTENDED REL 60 MG TABCR PO SCH (11:37)
[2022-03-25] MEDS: FOLIC ACID 1 MG TAB PO SCH (11:37)
[2022-03-25] MEDS: PREGABALIN 100 MG CAP PO SCH ×3 (11:38→20:39)
[2022-03-25] MEDS: SPIRONOLACTONE 25 MG TAB PO SCH (11:38)
[2022-03-25] MEDS: METOPROLOL TARTRATE 25 MG TAB PO SCH ×2 (11:38→20:28)
[2022-03-25] MEDS: TOPIRAMATE 100 MG TAB PO SCH ×2 (11:38→20:30)
[2022-03-25] MEDS: POTASSIUM CHLORIDE CRTAB 20 MEQ TABCR PO SCH ×2 (11:47→20:29)
[2022-03-25] MEDS: ONDANSETRON INJ 2 MG/ML 2 ML VIAL IV PRN ×2 (12:34→18:43)
--- NOTE | 2022-03-25 14:10 | Orthopedic Consultation ---
Date of Consultation March 25, 2022 Assessment & Plan (1) Fracture of distal end of right femur: NWB right lower extremity Due to body habitus, knee immobilizer or long leg splint is not feasible Patient may need catheterization in order to urinate Neuro checks q 4 hours PT/OT Ice/elevate if possible Will discuss with attending History of Present Illness Reason for Consultation: right distal radius fracture Attending Physician: Surya Jaramillo MD History of Present Illness Whit is a 66 year old female with PMH significant for morbid obesity BMI 72.5, CKD Stage IV, DM2, LV dysfunction, IVF filter placement, CAD, HTN, CHF, COPD, dyslipidemia, chronic respiratory failure, tracheostomy in place, MRSA, who sustained a fall this morning while in the hospital injurying her right leg. Xrays were done that showed a posteriorly displaced distal femur fracture. Patient reports 8/10 pain. She denies any numbness or tingling. Most of her pain is in her knee and distal thigh. Allergies Allergy/AdvReac Type Severity Reaction Status Date / Time Penicillins Allergy Intermediate Hives Verified 03/23/22 15:10 amitriptyline Allergy Unknown Unknown Verified 03/23/22 15:10 doxycycline Allergy Unknown Unknown Verified 03/23/22 15:10 guaifenesin Allergy Unknown Unknown Verified 03/23/22 15:10 metformin Allergy Unknown Unknown Verified 03/23/22 15:10 phenylephrine Allergy Unknown Unknown Verified 03/23/22 15:10 pseudoephedrine Allergy Unknown Unknown Verified 03/23/22 15:10 tetracycline Allergy Unknown Unknown Verified 03/23/22 15:10 venlafaxine [From Effexor] Allergy Unknown Unknown Verified 03/23/22 15:10 gabapentin AdvReac Intermediate BECOMES Verified 03/23/22 15:10 AGGRESSIVE Home Medications Medication Instructions Recorded Confirmed Type aspirin 81 mg tablet,delayed 81 mg PO QAM 04/06/19 03/23/22 History release (Aspirin Low Dose) bupropion HCl 100 mg tablet,12 hr See Rx Instructions .ROUTE .COMPLEX 04/06/19 03/23/22 History sustained-release docusate sodium 100 mg capsule 100 mg PO BID 04/06/19 03/23/22 History isosorbide mononitrate 60 mg 60 mg PO QAM 04/06/19 03/23/22 History tablet,extended release 24 hr metoprolol tartrate 25 mg tablet 12.5 mg PO BID 04/06/19 03/23/22 History multivitamin 1 tab PO QAM 04/06/19 03/23/22 History pantoprazole 40 mg tablet,delayed 40 mg PO QAM 04/06/19 03/23/22 History release spironolactone 25 mg tablet 25 mg PO QAM 04/06/19 03/23/22 History topiramate 100 mg tablet See Rx Instructions .ROUTE .COMPLEX 04/06/19 03/23/22 History Oxygen Home #1 ea 06/28/19 03/22/22 History nitroglycerin 0.4 mg sublingual 0.4 mg SL DIRECTED PRN tab 06/28/19 03/23/22 History tablet nebulizers #1 ea 12/24/20 03/22/22 Rx betamethasone dipropionate 0.05 % 1 applic TOPICAL BID PRN 02/27/21 03/23/22 History topical cream ipratropium 0.5 mg-albuterol 3 mg 3 ml INHALATION QID PRN 02/27/21 03/23/22 History (2.5 mg base)/3 mL nebulization soln lisinopril 2.5 mg tablet 2.5 mg PO QAM 02/27/21 03/23/22 History potassium chloride 10 mEq 20 meq PO AMPM 02/27/21 03/23/22 History tablet,extended release folic acid 1 mg tablet 1 mg PO QAM #0 tab 04/19/21 03/23/22 Rx subcutaneous insulin pump (MiniMed #1 ea 05/11/21 03/22/22 History 630G Insulin Pump) lorazepam 1 mg tablet (Ativan) 1 mg PO Q8H PRN 08/20/21 03/23/22 History blood sugar diagnostic (Contour #300 ea 09/29/21 03/22/22 Rx Next Test Strips) albuterol sulfate 90 mcg/actuation 2 puff INHALATION Q4 PRN 11/25/21 03/23/22 History aerosol inhaler ipratropium 20 mcg-albuterol 100 1 puff INHALATION QID 11/25/21 03/23/22 History mcg/actuation mist for inhalation (Combivent Respimat) torsemide 20 mg tablet See Rx Instructions .ROUTE .COMPLEX 11/25/21 03/23/22 History atorvastatin 40 mg tablet 40 mg PO QPM #90 tab 01/14/22 03/23/22 Rx montelukast 10 mg tablet 10 mg PO QPM #30 tab 01/28/22 03/23/22 Rx (Singulair) acetaminophen 500 mg tablet 500 mg PO QPM 03/23/22 03/23/22 History (Tylenol Extra Strength) acidophilus 100 million 1 cap PO DAILY 03/23/22 03/23/22 History cell-pectin, citrus 10 mg capsule azithromycin 250 mg tablet 250 mg PO DIRECTED 03/23/22 03/23/22 History empagliflozin 25 mg tablet 25 mg PO DAILY 03/23/22 03/23/22 History (Jardiance) hydrogen peroxide 3 % solution 1 applic TOPICAL DIRECTED PRN 03/23/22 03/23/22 History insulin lispro 100 unit/mL 0 unit CONTINUOUS SUBCUTANEOUS 03/23/22 03/23/22 History subcutaneous solution (Humalog INFUSION USEASDIRECTD U-100 Insulin) levothyroxine 200 mcg tablet 200 mcg PO DAILYBB 03/23/22 03/23/22 History pregabalin 100 mg capsule (Lyrica) 100 mg PO TID 03/23/22 03/23/22 History Patient History Medical History Ambulatory dysfunction Anxiety Breathlessness Bronchiectasis Chest pain CHF (congestive heart failure) Chronic respiratory failure CKD (chronic kidney disease), stage III COPD (chronic obstructive pulmonary disease) DM type 2 (diabetes mellitus, type 2) Dyslipidemia Fluid overload HTN (hypertension) Hypoventilation associated with obesity Insulin-requiring or dependent type II diabetes mellitus Migraine Morbid obesity MRSA (methicillin resistant staph aureus) culture positive "sputum 11/2015" Right ventricular dysfunction Sepsis Tracheostomy in place Surgical History History of appendectomy History of cholecystectomy History of hysterectomy History of tonsillectomy and adenoidectomy S/P IVC filter Family History Mother Coronary heart disease COPD (chronic obstructive pulmonary disease) Father Suicide Hung himself. Pt found him. Unknown Lung cancer Social History Smoking Status: Never smoker Second Hand Exposure: No; Do You Dip or Chew Tobacco: No; Tobacco Cessation Education Requested by Patient: No Hx Alcohol Use: No Hx Substance Use: No Preferred Language: Vietnamese Communication Ability: Effective Visual Impairment: Limited Records Clerk Required: No Beliefs That Will Affect Care: None marital status: Current Living Situation: Family Current Living Situation Comment: Lives with Daughter current occupational status: disabled Other Information That Helps Us Care for You: No Feels Safe at Home: Yes Safety Concerns: Feels Safe At This Time Assistive Devices: Nebulizer, Oxygen - Continuous and Walker Assistive Devices Comment: Recliner Review of Systems Review of Systems: Per HPI Physical Exam Physical Exam: General: Pt morbidly obese, laying in hospital bed AA&O, in NAD, calm and cooperative during exam. Tracheostomy in place. Pt has difficulty talking but is able to answer yes and no questions Lower Extremity: Patient tender to palpate about distal femur. Pt is able to wiggle toes and DF/PF ankle. She reports sensation distally to light touch. Results & Data ([facility]) Vital Signs (Past 12 Hours) Vital Signs Temp Pulse Resp BP Pulse Ox 03/25/22 11:06 78 16 92 03/25/22 10:00 36.6 C 84 22 105/66 96 03/25/22 08:00 36.5 C 80 22 121/65 94 03/25/22 07:23 71 18 96 03/25/22 07:00 36.7 C 73 22 129/77 100 03/25/22 04:25 80 24 95 03/25/22 03:25 36.6 C 74 24 128/57 L 96 Diagnostic Findings Knee X-Ray 03/25/22 08:41 XR knee RT 1 or 2V routine CLINICAL HISTORY: fall in hospital. Right knee pain. COMPARISON STUDY: None. FINDINGS: Suboptimal evaluation of the right knee due to the patient positioning. Comminuted and displaced fracture involving the distal metadiaphysi s of the right femur. This demonstrates up to 2.2 cm of posterior displacement. IMPRESSION: Comminuted and displaced fracture involving the distal metadiaphysis of the right femur. ACT 112: Negative or not required by law. Electronically signed by: Geo Arenas M.D. 03/25/2022 10:32 AM
--- NOTE | 2022-03-25 15:10 | Hospitalist Progress Note ---
Date of Service March 25, 2022 Assessment & Plan (1) Fracture of distal end of right femur: Plan: Patient sustained a comminuted fracture of the distal right femur after fall in the hospital. Orthopedic consult was undertaken to determine if surgical correction is required. Patient have a Payne catheter placed. She will have parenteral and oral opiate pain medication. Currently appears to be neurovascularly intact acutely after fracture. Certainly her operative risk is at least moderate given her morbid obesity, COPD, cor pulmonale, previous history of heart disease, sleep apnea and diabetes her revised cardiac risk indicator gives her approximately 10% chance of 30-day risk of WI or cardiac arrest however given her body size and her nonweightbearing status patient will have significant risk if this is elected to be nonoperative repair (2) Cellulitis and abscess of leg: Plan: Cellulitis and drainage of leg and buttock- Minimal area involvement of perineum and buttock Daptomycin 4 mg/kg IV daily plus Aztreonam 2 g IV every 8 hours Appreciate wound cares expertise History of MRSA infection Hold empagliflozin (3) Hypothyroidism (acquired): Plan: Continue levothyroxine (4) CKD (chronic kidney disease) stage 4, GFR 15-29 ml/min: Plan: Creatinine appears in his typical range resume ty i for renal protective affects (5) DM type 2 (diabetes mellitus, type 2): Plan: Place on Accu-Cheks before meals and at bedtime with NovoLog coverage per scale Hold empagliflozin use insulin pump for basal rate HGB a1c 8.5 on admission (6) GERD (gastroesophageal reflux disease): (7) MRSA infection: (8) COPD (chronic obstructive pulmonary disease): Plan: Continue routine inhalers and nebs, feels may have increased mucus, if issue consider mucolytic (9) Tracheostomy in place: Plan: Routine trach collar care (10) Anxiety: Plan: Anxiety with depression- Continue bupropion, Lyrica an topiramate (11) Edema leg: Plan: torsemide 20 mg daily Admission and Anticipated Discharge Date Admission Date: March 23, 2022 Subjective pt had a fall out of bed this am, and had persistent right leg mostly knee pain, attempts at plain films shows comminuted distal femur Fracture but not proxima lly, I did personally notify orthopedics, ordered CT of leg and pain medication Review of Systems Review of Systems: Mild to moderate distress and fatigue no headache, no visual changes no speech or swallowing issues no chest pain, pressure or palpitations Shortness of breath improved with treatment, less mucus production no abdominal pain, nausea or vomiting, diarrhea or constipation no dysuria, hematuria or frequency pt has right leg pain, some twitching or jerking movements no back pain, CVA tenderness or radicular pain Skin with areas of open excoriation and a few deeper areas with surrounding erythema consistent with cellulitic changes to skin mostly on lower extremities worse on the left inner thigh no focal signs of weakness or numbness or altered sensation no complaints of anxiety or depression.. Physical Exam Physical Exam: The patient appeared well nourished and normally developed. she is in some pain after the fall and subsequent fracture she is morbidly obese with BMI of 72 Vital signs as documented. Head exam is normocephalic atraumatic Neck is with trachea in place, can speak if occludes end Lungs are coarse and diminshed bilaterally Cardiac exam, Rhythm is regular and distant right leg is painful difficult to examine due to body habitus, good distal cap refull no focal loss of sensation Neurologic exam is alert and oriented, no focal loss of strength or sensation Skin is with chronic stasis dermatitis changes of LE b/l with acute cellulitis Psychologically is without concerns for anxiety or depression.. Results & Data Results & Data ([facility]) Vital Signs (Past 12 Hours) Vital Signs Temp Pulse Resp BP Pulse Ox 03/25/22 14:00 98.2 F 94 H 20 119/71 90 03/25/22 11:06 78 16 92 03/25/22 10:00 97.9 F 84 22 105/66 96 03/25/22 08:00 97.7 F 80 22 121/65 94 03/25/22 07:23 71 18 96 03/25/22 07:00 98.1 F 73 22 129/77 100 03/25/22 04:25 80 24 95 03/25/22 03:25 97.9 F 74 24 128/57 L 96 PG Care Time/CCT Total # of Minutes Spent Total Time Spent with Patient: Total time spent is greater than 50% in coordination of care (as documented) at patient's floor/unit and/or counseling patient: Coding Level of Care Code 30769 Subseq Hosp Care Lvl 3 Diagnoses Cellulitis and abscess of leg L03.119; L02.419 Hypothyroidism (acquired) E03.9 CKD (chronic kidney disease) stage 4, GFR 15-29 ml/min N18.4 DM type 2 (diabetes mellitus, type 2) E11.9 GERD (gastroesophageal reflux disease) K21.9 MRSA infection A49.02 COPD (chronic obstructive pulmonary disease) J44.[address] Z93.0 Anxiety F41.9 Edema leg R60.0 Fracture of distal end of right femur S72.401A
--- NOTE | 2022-03-25 15:11 | CT Scan Report ---
CT bony pelvis wo con, CT knee RT wo con, CT femur RT wo con HISTORY: 66 years-old Female fall with fx acute pelvic, right thigh and knee pain status post fall COMPARISON: Right knee radiographs of same day, acute abdominal series radiographs 04/06/2019, CT abdo men and pelvis 05/09/2007. TECHNIQUE: Multiple axial CT images of the bony pelvis, right femur and knee were obtained without us e of IV contrast. 3-D rendered images of the right femur and knee were generated from a separate work station and were submitted for review. A dose lowering technique was used consistent with the princip als of POLY. FINDINGS: PELVIS: Motion degraded exam. There is an exophytic intermediate attenuating lesion involving the anterior in terpolar left kidney which is partially imaged and measures up to approximately 2.7 cm on image 3 of series 3, new from the prior study. Colonic diverticulosis. Advanced degenerative changes of the lowe r lumbar spine with at least moderate central canal stenosis at L3-L4. No acute intrapelvic abnormali ty. Mild nonspecific body wall edema. Artifact versus equivocal nondisplaced right sacral alar fracture. There is mild cortical angulation noted involving the bilateral inferior pubic rami which is unchanged on the right comparison and is n ew/progressed on the left. No definite acute fracture line identified within the pelvic ring. There i s mild to moderate osteoarthritis in the bilateral hips. No acute fracture, dislocation or avascular necrosis. FEMUR: There is an acute comminuted fracture of the distal femoral diaphysis extending into the metadiaphyse al junction and distal metaphysis. Displacement measures up to 2 cm posteriorly and 1.3 cm medially. Mild apex lateral angulation of the fractures. Several the fracture fragments are impacted and mildly angulated. No fracture extension identified within the medial or lateral condyles of the identified. Arterial calcifications. Subcutaneous and deep tissue edema in the thigh, most pronounced distally w ith hemorrhage tracking along the quadriceps myofascial planes. KNEE: Moderate tricompartmental osteoarthritis of the knee. Acute distal femoral fracture as above. The med ial and lateral femoral condyles, patella and proximal proximal tibia appear to be intact. There is a n acute fracture involving the proximal fibular head and neck with minimal displacement measuring up to 2 mm. Moderate-sized lipohemarthrosis of the knee. Soft tissue edema as above. No intra-articular loose body. IMPRESSION: 1. Acute, comminuted, displaced, impacted and angulated fracture of the distal femoral diaphysis and metaphysis. There is no fracture extension into the femoral condyles. 2. Acute minimally displaced fracture of the fibular head and neck, partially imaged. 3. Ill-defined linear lucency of the right sacral ala is likely artifactual. A subtle acute fracture is considered less likely. 4. Moderate sized lipohemarthrosis of the knee. 5. Partially imaged 2.7 cm left renal lesion is new from 2006. This could be correlated with a follow -up ultrasound to exclude renal cell carcinoma. ACT 112: Negative or not required by law. The above report was generated using voice recognition software. It may contain grammatical, syntax o r spelling errors. Electronically signed by: Robbie Henderson M.D. 03/25/2022 3:09 PM
[2022-03-25] MEDS ORDERED: LIDOCAINE 1% LOCAL 20 ML VIAL INJ ONE (17:25)
[2022-03-25] MEDS ORDERED: LIDOCAINE 1% LOCAL 20 ML VIAL ONE (17:25)
--- NOTE | 2022-03-25 18:08 | Progress Notes ---
DATE OF SERVICE: 03/25/2022. The patient is a 66-year-old female who was admitted with cellulitis of her left leg. She fell this morning and sustained an injury to her right knee. She is seen in conjunction with Kat Wilson. For further details, refer to her dictation. She and I saw and evaluated together and I am in agreement with plan. Her health history is noted and reviewed. She is on antibiotics for her left leg cellulitis and thos e antibiotics include aztreonam and daptomycin. She is diabetic and has sleep apnea. Her medication s and health history were reviewed. The examination demonstrates that she has a trace palpable dorsalis pedis pulse. Posterior tibial is not palpable. Capillary refill is less than 2 seconds. There is some bleeding of her second toe. When cleaned up, she has a laceration beginning on the lateral side of her second toe coursing around the skin fold of the proximal interphalangeal joint plantarly. The toe is tender. It is not swolle n. It is not deformed. Does not appear to be appreciably unstable. There does not appear to be any significant lacerations of any of the other toes. We will check an x-ray of her foot. This area will be cleaned, thoroughly, irrigated and then closed with nylons by the PA and then dress ed. She does have some tenderness of the toe and there is some nonspecific discomfort involving the foot area and lower leg. There is tenderness of the upper leg at the knee area. She can wiggle her toes and flex and extend her ankle. She has very jerky movements with her motor function. Sensation is i ntact. There is a chronic-appearing swelling with stasis dermatitis throughout the leg. I do not de tect a significant knee effusion. Her body habitus is one of a substantial obesity, which causes her leg to be held in a flexed, externally rotated type position. The knee cannot be straightened out b ecause of her femoral fracture. The pannus protrudes down to the knee and the thigh, bulge is substa ntially medially and distally towards the knee. There are several superficial open wounds over the r ight lateral leg, nothing appears to be infected. No erythema or drainage. We lifted up her pannus and inspected then found that there was no tenderness of the hip and no infection or skin breakdown t here. CT scans and radiographs were reviewed and they demonstrate intact pelvis and hip. The distal femur shows a very comminuted extraarticular supracondylar femur fracture. There is a fracture involving t he upper portion of the fibula. Further imaging of the foot and tib-fib has been ordered. She has morbid obesity and a comminuted right distal femur fracture. There is also a laceration of t hilaria right second toe. PLAN: We will evaluate and address the toe. Check x-rays. She is on antibiotics and this will help prevent infection. We will thoroughly irrigate and then go ahead and perform wound closure. In terms of the femur fracture, options are to treat this without surgery or with surgery. It is pos sible that surgical intervention may not be possible given the overall circumstances in which case he aling may be precluded. Her mobility at this point, is a very limited and certainly would be much mo re limited after that. I do not think the size, position and shape of the leg would lend itself to i mmobilization with a knee immobilizer or with any type of splint. I do not think that traction would be possible either. External fixation is a consideration. If she chose any type of surgical interv ention, whether it would be stabilization with an external fixator or internal fixation with a plate screws and/or rivera, I would recommend that she have this done at a tertiary care medical center with jase manrique traumatologist. I do not think that we have the necessary resources here to address her femoral f racture problem at [facility]. I conveyed my evaluation to Dr. Jaramillo. We will help out in an y way we can and continue to follow. Once she makes a decision about surgery or not, we can discuss blood clot prevention. If she did not have surgery, then I would recommend blood clot prevention. Job ID: [id number]
[2022-03-25] MEDS: INSULIN ASPART PER UNIT SC SCH ×2 (18:21→20:39)
[2022-03-25] MEDS: ACETAMINOPHEN 500 MG TAB PO SCH (20:27)
[2022-03-25] MEDS: MONTELUKAST SODIUM 10 MG TABLET PO SCH (20:29)
[2022-03-25] MEDS: DAPTOmycin 400 MG in SYRINGE 0 ML IV SCH (20:39)
[2022-03-25] MEDS: INSULIN GLARGINE SOLOSTAR 100 UNITS/ML 3 ML PEN SC SCH (20:40)
[2022-03-25] MEDS: oxyCODONE HCL IR 5 MG TAB (IMMEDIATE RELEASE) PO PRN (22:35)
[2022-03-26] MEDS: AZTREONAM 2,000 MG in DEXTROSE 5% 100 ML IV SCH ×3 (02:09→18:23)
[2022-03-26] MEDS: LEVOTHYROXINE SODIUM 200 MCG TABLET PO SCH (05:45)
--- NOTE | 2022-03-26 06:44 | Procedure Note ---
Procedure Note Date of Service March 25, 2022 Note Procedure: suture laceration right 2nd toe Verbal consent obtained. Using sterile technique, 1L of betadine and saline mix was used to do copious irrigation of wound. Then, approxmately 8ml of 1% licodaine without epinephrine was used to anesthetize the area. I then had my partner, Deric Betts PA-C, use small hook retractors to retract skin flaps and did approximately another 30mls of irrigation with betadine-saline mix. 3-0 Nylon suture was used to suture laceration doing simple interrupted technique. 6 simple interrupted sutures placed. Skin edges were well approximated and bleeding controlled. Wound was then cleansed with alcohol and dressed with xeroform, 2x2 gauze pads and coband. Patient tolerated the procedure well. 2cm size linear, 1 liter irrigation, no palpable or exposed bone or joint Coding
[2022-03-26] MEDS: IPRATROPIUM BROMIDE HFA INHALER INH SCH ×4 (07:21→19:35)
[2022-03-26] MEDS: ALBUTEROL HFA 8 GM INHALER INH SCH ×4 (07:22→19:35)
--- NOTE | 2022-03-26 07:25 | XRay Report ---
RIGHT TIBIA AND FIBULA 2 VIEWS CLINICAL HISTORY: Right leg injury. FINDINGS: AP and lateral views of the right tibia and fibula are obtained. Correlation is made with r adiographs of the right knee dated 03/25/2022. The skeletal structures are osteopenic. There is no radi ographic evidence of tibial or fibular fracture. There is an age indeterminant avulsion fracture juliet g the dorsal aspect of the talus. The knee and ankle joints are grossly maintained. An os trigonum is incidentally noted. There are large dorsal and plantar calcaneal enthesophytes. Degenerative spurrin g is seen along the dorsal aspect of the tarsal bones. Diffuse soft tissue edema is present throughou t the right lower extremity. IMPRESSION: 1. Soft tissue swelling with no radiographic evidence of right tibial or fibular fracture. 2. Age indeterminant avulsion fracture along the dorsal aspect of the talus. Correlate for purvi quintero. 3. Large heel spurs. Electronically signed by: Jasper Hancock M.D. 03/26/2022 7:23 AM
[2022-03-26 07:45] LABS: Basophils # (auto) 0.02 K/uL (0-0.2); Basophils % (auto) 0.2 %; Eosinophils # (auto) 0.11 K/uL (0-0.5); Eosinophils % (auto) 0.9 %; Hemoglobin 9.5 g/dL (12.0-16.0); Immature Granulocytes # (auto) 0.27 K/uL (0.00-0.02); Immature Granulocytes % (auto) 2.2 %; Lymphocytes # (auto) 1.74 K/uL (1.2-3.4); Lymphocytes % (auto) 14.5 %; Mean Corpuscular Hemoglobin 27.5 pg (25-34); Mean Corpuscular Hgb Conc 29.7 g/dL (32-36); Mean Corpuscular Volume 92.8 fL (80-100); Mean Platelet Volume 9.4 fL (7.4-10.4); Monocytes # (auto) 1.22 K/uL (0.11-0.59); Monocytes % (auto) 10.2 %; Neutrophils # (auto) 8.65 K/uL (1.4-6.5); Platelet Count 273 K/uL (130-400); RDW Coefficient of Variation 16.8 % (11.5-14.5); RDW Standard Deviation 56.6 fL (36.4-46.3); Red Blood Count 3.45 M/uL (4.2-5.4); White Blood Count 12.01 K/uL (4.8-10.8)
--- NOTE | 2022-03-26 07:48 | XRay Report ---
XR foot RT min 3V routine CLINICAL HISTORY: right third toe laceration and pain COMPARISON STUDY: Right foot 03/13/2021. FINDINGS: There is a punctate ossific density adjacent to the dorsal base of the right second toe mid dle phalanx. This is new from the prior study and likely represents an old avulsion fracture. There i s diffuse soft tissue swelling within the right foot. A plantar heel spur is noted. No erosive change s to suggest an osteomyelitis. The Lisfranc joint is intact. No dislocation. The bones are osteopenic . Mild degenerative changes within the right foot. There is mild cortical irregularity at the base of the right third toe proximal phalanx. This is likely positional. A nondisplaced fracture is consider ed less likely but not entirely excluded. Consider 2 week radiograph follow-up if the patient complai ns of pain at this location. IMPRESSION: 1. There is mild cortical irregularity at the base of the right third toe proximal phalanx. This is l ikely positional. A nondisplaced fracture is considered less likely but not entirely excluded. Consid er 2 week radiograph follow-up if the patient complains of pain at this location. 2. Old small avulsion fracture at the right second toe middle phalanx. 3. Diffuse soft tissue swelling. ACT 112: Negative or not required by law. Electronically signed by: Geo Arenas M.D. 03/26/2022 7:47 AM
[2022-03-26] MEDS: ONDANSETRON INJ 2 MG/ML 2 ML VIAL IV PRN (08:07)
[2022-03-26] MEDS: oxyCODONE HCL IR 5 MG TAB (IMMEDIATE RELEASE) PO PRN ×3 (08:07→23:15)
[2022-03-26] MEDS: PREGABALIN 100 MG CAP PO SCH ×3 (08:08→21:45)
[2022-03-26] MEDS: POTASSIUM CHLORIDE CRTAB 20 MEQ TABCR PO SCH (08:08)
[2022-03-26] MEDS: METOPROLOL TARTRATE 25 MG TAB PO SCH ×2 (08:08→21:44)
[2022-03-26] MEDS: buPROPion SR 100 MG TABCR PO SCH ×2 (08:10→21:41)
[2022-03-26] MEDS: FOLIC ACID 1 MG TAB PO SCH (08:10)
[2022-03-26] MEDS: TOPIRAMATE 100 MG TAB PO SCH ×2 (08:10→21:46)
[2022-03-26] MEDS: ASPIRIN 81 MG ECTAB PO SCH (08:10)
[2022-03-26] MEDS: PANTOprazole 40 MG TAB PO SCH (08:10)
[2022-03-26] MEDS: TORSEMIDE 10 MG TAB PO SCH (08:10)
[2022-03-26] MEDS: MULTIVITAMIN TAB PO SCH (08:11)
[2022-03-26] MEDS: DOCUSATE SODIUM 100 MG CAP PO SCH ×2 (08:11→21:42)
[2022-03-26] MEDS: ADVANCED PROBIOTIC 1250 MG CAPSULE PO SCH (08:11)
[2022-03-26] MEDS: ISOSORBIDE MONO EXTENDED REL 60 MG TABCR PO SCH (08:11)
[2022-03-26] MEDS: SPIRONOLACTONE 25 MG TAB PO SCH (08:11)
[2022-03-26] MEDS: INSULIN GLARGINE SOLOSTAR 100 UNITS/ML 3 ML PEN SC SCH ×2 (08:12→21:42)
[2022-03-26] MEDS: INSULIN ASPART PER UNIT SC SCH ×4 (08:13→21:53)
[2022-03-26 08:19] LABS: Albumin Level 3.2 gm/dl (3.4-5.0); BUN Creatinine Ratio 23.8 (10-20); Bilirubin,Total 0.6 mg/dl (0.2-1.0); Calcium 8.5 mg/dl (8.5-10.1); Creatinine Clr Calc Pharmacy 49.7 ml/min; Est GFR (African American) 33.4 ml/min; Est GFR (Non-African American) 28.8 ml/min; Globulin 3.1 gm/dl (2.5-4.0); Magnesium 2.2 mg/dl (1.7-2.4); Potassium 5.2 mmol/L (3.5-5.1); Total Protein 6.3 gm/dl (6.0-8.3)
[2022-03-26 11:45] LABS: BUN Creatinine Ratio 22.5 (10-20); Calcium 8.4 mg/dl (8.5-10.1); Creatinine Clr Calc Pharmacy 48.1 ml/min; Est GFR (African American) 32.1 ml/min; Est GFR (Non-African American) 27.7 ml/min; Potassium 5.3 mmol/L (3.5-5.1)
[2022-03-26] MEDS: ACETAMINOPHEN 500 MG TAB PO SCH ×2 (13:09→21:39)
--- NOTE | 2022-03-26 14:47 | Progress Notes ---
DATE OF SERVICE: 03/26/2022 The patient is resting comfortably in bed. Her bandage is intact on her right second toe. X-rays of the foot and tib-fib have been reviewed. Question of an age indeterminate fracture of the proximal phalanx of the third toe. Not clearcut on x-ray. A small chip is associated with the distal portion of the second toe. There is no dislocation. The report is noted. There is no tib-fib fracture pre sent. She is afebrile. Her vital signs are stable. White count is 12, hemoglobin 10, hematocrit 32, plate lets are 273. Her PRP is noted. She has renal insufficiency. She is able to wiggle her toes. The foot is warm and dorsalis pedis is 1+. Findings were discussed with the patient. She wishes to consider surgical intervention. There is a scenario where no surgery is able to be offered. She would like to do this at [facility] and transfer is in the process of being arranged. I spoke with the daughter and discussed with her my findings a nd recommendations and she is in agreement and understands about the complexity of this injury and th e potential surgical procedure. Again, I do not think physically it is amenable to put a splint on t he leg or an immobilizer given the shape. Something like an external fixator could be theoretically considered. Job ID: [id number]
[2022-03-26] MEDS ORDERED: PATIROMER CALCIUM SORBITEX 8.4 GM PACK PO SCH (15:15)
--- NOTE | 2022-03-26 15:48 | Hospitalist Progress Note ---
Date of Service March 26, 2022 Assessment & Plan (1) Fracture of distal end of right femur: Plan: Patient sustained a comminuted fracture of the distal right femur after fall in the hospital. Orthopedic consult was undertaken to determine if surgical correction is required. Patient have a Payne catheter placed. She will have parenteral and oral opiate pain medication. Currently appears to be neurovascularly intact acutely after fracture. Certainly her operative risk is at least moderate given her morbid obesity, COPD, cor pulmonale, previous history of heart disease, sleep apnea and diabetes her revised cardiac risk indicator gives her approximately 10% chance of 30-day risk of HI or cardiac arrest however given her body size and her nonweightbearing status patient will have significant risk if this is elected to be nonoperative repair Pt accepted [facility] with DR Mclain the triage physician, awaiting bed confirmation and transport (2) Cellulitis and abscess of leg: Plan: Cellulitis and drainage of leg and buttock- Minimal area involvement of perineum and buttock Daptomycin 4 mg/kg IV daily plus Aztreonam 2 g IV every 8 hours Appreciate wound cares expertise History of MRSA infection Hold empagliflozin (3) Hypothyroidism (acquired): Plan: Continue levothyroxine (4) CKD (chronic kidney disease) stage 4, GFR 15-29 ml/min: Plan: Creatinine appears in his typical range resume ty i for renal protective affects (5) DM type 2 (diabetes mellitus, type 2): Plan: Place on Accu-Cheks before meals and at bedtime with NovoLog coverage per scale Hold empagliflozin use insulin pump for basal rate HGB a1c 8.5 on admission (6) GERD (gastroesophageal reflux disease): (7) MRSA infection: (8) COPD (chronic obstructive pulmonary disease): Plan: Continue routine inhalers and nebs, feels may have increased mucus, if issue consider mucolytic (9) Tracheostomy in place: Plan: Routine trach collar care (10) Anxiety: Plan: Anxiety with depression- Continue bupropion, Lyrica an topiramate (11) Edema leg: Plan: torsemide 20 mg daily Admission and Anticipated Discharge Date Admission Date: March 23, 2022 Subjective pt was alert but in pain today, states she would prefer for me to contact [facility] for consultation for possible orthopedic surgery to correct fracture, pain control is no optimal Review of Systems Review of Systems: Mild to moderate distress and fatigue no headache, no visual changes no speech or swallowing issues no chest pain, pressure or palpitations Shortness of breath improved with treatment, less mucus production no abdominal pain, nausea or vomiting, diarrhea or constipation no dysuria, hematuria or frequency pt has right leg pain, some twitching or jerking movements no back pain, CVA tenderness or radicular pain Skin with areas of open excoriation and a few deeper areas with surrounding erythema consistent with cellulitic changes to skin mostly on lower extremities worse on the left inner thigh no focal signs of weakness or numbness or altered sensation no complaints of anxiety or depression.. Physical Exam Physical Exam: The patient appeared well nourished and normally developed. she is in some pain after the fall and subsequent fracture she is morbidly obese with BMI of 72 Vital signs as documented. Head exam is normocephalic atraumatic Neck is with trachea in place, can speak if occludes end Lungs are coarse and diminshed bilaterally Cardiac exam, Rhythm is regular and distant right leg is painful difficult to examine due to body habitus, good distal cap refull no focal loss of sensation Neurologic exam is alert and oriented, no focal loss of strength or sensation Skin is with chronic stasis dermatitis changes of LE b/l with acute cellulitis Psychologically is without concerns for anxiety or depression.. Results & Data Results & Data ([facility]) Vital Signs (Past 12 Hours) Vital Signs Temp Pulse Pulse Pulse Resp BP Pulse Ox 03/26/22 15:00 98.1 F 86 20 128/55 L 97 03/26/22 14:30 88 03/26/22 14:29 77 20 94 03/26/22 11:11 98.4 F 95 H 18 108/66 93 03/26/22 10:06 79 19 94 03/26/22 07:45 97.7 F 95 H 20 107/66 93 03/26/22 07:23 87 20 90 03/26/22 07:00 92 H PG Care Time/CCT Total # of Minutes Spent Total Time Spent with Patient: Total time spent is greater than 50% in coordination of care (as documented) at patient's floor/unit and/or counseling patient: Coding Level of Care Code 99552 Subseq Hosp Care Lvl 2 Diagnoses Fracture of distal end of right femur S72.401A Cellulitis and abscess of leg L03.119; L02.419 Hypothyroidism (acquired) E03.9 CKD (chronic kidney disease) stage 4, GFR 15-29 ml/min N18.4 DM type 2 (diabetes mellitus, type 2) E11.9 GERD (gastroesophageal reflux disease) K21.9 MRSA infection A49.02 COPD (chronic obstructive pulmonary disease) J44.[address] Z93.0 Anxiety F41.9 Edema leg R60.0
--- NOTE | 2022-03-26 15:52 | Discharge Summary ---
Date of Service March 26, 2022 Admission HPI Per Admitting Provider The patient is a 66-year-old female with past medical history including hypothyroidism, CKD stage IV, diabetes mellitus, metabolic syndrome, morbid obesity, GERD, cellulitis, anxiety, chronic diastolic CHF, COPD, cor pulmonale, CAD, history of MRSA infection, tracheostomy dependence, RASHAAD, chronic respiratory failure, hypertension, obesity hypoventilation syndrome and history of IVC filter placement. She presents the emergency department as noted above, with her principal concern being the draining rash in her groin area. Principal Diagnosis distal comminuted distal femur fracture chronic hypoxic respiratory failure insulin requiring diabetes right 2nd toe laceration with repair le cellulitis from obesity and abrasion Discharge Exam Patient was comfortable but still in some pain her trach collar with humidified air was in place Patient has good distal capillary refill difficult to find pulses she is tendern ess to movement of her leg. Lungs are coarse bilaterally but she does have good bilateral breath sounds. Discharge Data Allergies Allergy/AdvReac Type Severity Reaction Status Date / Time Penicillins Allergy Intermediate Hives Verified 03/23/22 15:10 amitriptyline Allergy Unknown Unknown Verified 03/23/22 15:10 doxycycline Allergy Unknown Unknown Verified 03/23/22 15:10 guaifenesin Allergy Unknown Unknown Verified 03/23/22 15:10 metformin Allergy Unknown Unknown Verified 03/23/22 15:10 phenylephrine Allergy Unknown Unknown Verified 03/23/22 15:10 pseudoephedrine Allergy Unknown Unknown Verified 03/23/22 15:10 tetracycline Allergy Unknown Unknown Verified 03/23/22 15:10 venlafaxine [From Effexor] Allergy Unknown Unknown Verified 03/23/22 15:10 gabapentin AdvReac Intermediate BECOMES Verified 03/23/22 15:10 AGGRESSIVE Consultations 03/23/22 14:32 ED Decision to Admit Stat 03/25/22 12:14 Consult Orthopedic Surgery Routine 03/26/22 15:12 Burn CD for patient Routine Ordered Studies Chest X-Ray 03/23/22 12:44 XR chest 1V portable HISTORY: Shortness of breath. COMPARISON: Chest 02/25/2022. FINDINGS: There are low lung volumes. The heart remains moderately enlarged. No new focal lung consolidations to suggest pneumonia. Tracheostomy tube appears in good position. No pneumothorax. No pleural effusions. There is mild central pulmonary vascular congestion without overt edema. This has improved in the interval. IMPRESSION: Cardiomegaly with improvement in the mild pulmonary vascular congestion. ACT 112: Negative or not required by law. Electronically signed by: Geo Arenas M.D. 03/23/2022 1:19 PM Knee X-Ray 03/25/22 08:41 XR knee RT 1 or 2V routine CLINICAL HISTORY: fall in hospital. Right knee pain. COMPARISON STUDY: None. FINDINGS: Suboptimal evaluation of the right knee due to the patient positioning. Comminuted and displaced fracture involving the distal m etadiaphysis of the right femur. This demonstrates up to 2.2 cm of posterior displacement. IMPRESSION: Comminuted and displaced fracture involving the distal metadiaphysis of the right femur. ACT 112: Negative or not required by law. Electronically signed by: Geo Arenas M.D. 03/25/2022 10:[address] 03/25/22 11:45 CT bony pelvis wo con, CT knee RT wo con, CT femur RT wo con HISTORY: 66 years-old Female fall with fx acute pelvic, right thigh and knee pain status post fall COMPARISON: Right knee radiographs of same day, acute abdominal series radiographs 04/06/2019, CT abdomen and pelvis 05/09/2007. TECHNIQUE: Multiple axial CT images of the bony pelvis, right femur and knee were obtained without use of IV contrast. 3-D rendered images of the right femur and knee were generated from a separate workstation and were submitted for review. A dose lowering technique was used consistent with the principals of ALARA. FINDINGS: PELVIS: Motion degraded exam. There is an exophytic intermediate attenuating lesion involving the anterior interpolar left kidney which is partially imaged and measures up to approximately 2.7 cm on image 3 of series 3, new from the prior study. Colonic diverticulosis. Advanced degenerative changes of the lower lumbar spine with at least moderate central canal stenosis at L3-L4. No acute intrapelvic abnormality. Mild nonspecific body wall edema. Artifact versus equivocal nondisplaced right sacral alar fracture. There is mild cortical angulation noted involving the bilateral inferior pubic rami which is unchanged on the right comparison and is new/progressed on the left. No definite acute fracture line identified within the pelvic ring. There is mild to moderate osteoarthritis in the bilateral hips. No acute fracture, dislocation or avascular necrosis. FEMUR: There is an acute comminuted fracture of the distal femoral diaphysis extending into the metadiaphyseal junction and distal metaphysis. Displacement measures up to 2 cm posteriorly and 1.3 cm medially. Mild apex lateral angulation of the fractures. Several the fracture fragments are impacted and mildly angulated. No fracture extension identified within the medial or lateral condyles of the identified. Arterial calcifications. Subcutaneous and deep tissue edema in the thigh, most pronounced distally with hemorrhage tracking along the quadriceps myofascial planes. KNEE: Moderate tricompartmental osteoarthritis of the knee. Acute distal femoral fracture as above. The medial and lateral femoral condyles, patella and proximal proximal tibia appear to be intact. There is an acute fracture involving the proximal fibular head and neck with minimal displacement measuring up to 2 mm. Moderate-sized lipohemarthrosis of the knee. Soft tissue edema as above. No intra-articular loose body. IMPRESSION: 1. Acute, comminuted, displaced, impacted and angulated fracture of the distal femoral diaphysis and metaphysis. There is no fracture extension into the femoral condyles. 2. Acute minimally displaced fracture of the fibular head and neck, partially imaged. 3. Ill-defined linear lucency of the right sacral ala is likely artifactual. A subtle acute fracture is considered less likely. 4. Moderate sized lipohemarthrosis of the knee. 5. Partially imaged 2.7 cm left renal lesion is new from 2006. This could be co rrelated with a follow-up ultrasound to exclude renal cell carcinoma. ACT 112: Negative or not required by law. The above report was generated using voice recognition software. It may contain grammatical, syntax or spelling errors. Electronically signed by: Robbie Henderson M.D. 03/25/2022 3:[address] 03/25/22 11:45 CT bony pelvis wo con, CT knee RT wo con, CT femur RT wo con HISTORY: 66 years-old Female fall with fx acute pelvic, right thigh and knee pain status post fall COMPARISON: Right knee radiographs of same day, acute abdominal series r adiographs 04/06/2019, CT abdomen and pelvis 05/09/2007. TECHNIQUE: Multiple axial CT images of the bony pelvis, right femur and knee were obtained without use of IV contrast. 3-D rendered images of the right femur and knee were generated from a separate workstation and were submitted for review. A dose lowering technique was used consistent with the principals of ALARA. FINDINGS: PELVIS: Motion degraded exam. There is an exophytic intermediate attenuating lesion involving the anterior interpolar left kidney which is partially imaged and measures up to approximately 2.7 cm on image 3 of series 3, new from the prior study. Colonic diverticulosis. Advanced degenerative changes of the lower lumbar spine with at least moderate central canal stenosis at L3-L4. No acute intrapelvic abnormality. Mild nonspecific body wall edema. Artifact versus equivocal nondisplaced right sacral alar fracture. There is mild cortical angulation noted involving the bilateral inferior pubic rami which is u nchanged on the right comparison and is new/progressed on the left. No definite acute fracture line identified within the pelvic ring. There is mild to moderate osteoarthritis in the bilateral hips. No acute fracture, dislocation or avascular necrosis. FEMUR: There is an acute comminuted fracture of the distal femoral diaphysis extending into the metadiaphyseal junction and distal metaphysis. Displacement measures up to 2 cm posteriorly and 1.3 cm medially. Mild apex lateral angulation of the fractures. Several the fracture fragments are impacted and mildly angulated. No fracture extension identified within the medial or lateral condyles of the identified. Arterial calcifications. Subcutaneous and deep tissue edema in the thigh, most pronounced distally with hemorrhage tracking along the quadriceps myofascial planes. KNEE: Moderate tricompartmental osteoarthritis of the knee. Acute distal femoral fracture as above. The medial and lateral femoral condyles, patella and proximal proximal tibia appear to be intact. There is an acute fracture involving the proximal fibular head and neck with minimal displacement measuring up to 2 mm. Moderate-sized lipohemarthrosis of the knee. Soft tissue edema as above. No intra-articular loose body. IMPRESSION: 1. Acute, comminuted, displaced, impacted and angulated fracture of the distal femoral diaphysis and metaphysis. There is no fracture extension into the femoral condyles. 2. Acute minimally displaced fracture of the fibular head and neck, partially imaged. 3. Ill-defined linear lucency of the right sacral ala is likely artifactual. A subtle acute fracture is considered less likely. 4. Moderate sized lipohemarthrosis of the knee. 5. Partially imaged 2.7 cm left renal lesion is new from 2006. This could be correlated with a follow-up ultrasound to exclude renal cell carcinoma. ACT 112: Negative or not required by law. The above report was generated using voice recognition software. It may contain grammatical, syntax or spelling errors. Electronically signed by: Robbie Henderson M.D. 03/25/2022 3:[address] 03/25/22 11:45 CT bony pelvis wo con, CT knee RT wo con, CT femur RT wo con HISTORY: 66 years-old Female fall with fx acute pelvic, right thigh and knee pain status post fall COMPARISON: Right knee radiographs of same day, acute abdominal series radiograp hs 04/06/2019, CT abdomen and pelvis 05/09/2007. TECHNIQUE: Multiple axial CT images of the bony pelvis, right femur and knee were obtained without use of IV contrast. 3-D rendered images of the right femur and knee were generated from a separate workstation and were submitted for review. A dose lowering technique was used consistent with the principals of ALARA. FINDINGS: PELVIS: Motion degraded exam. There is an exophytic intermediate attenuating lesion involving the anterior interpolar left kidney which is partially imaged and measures up to approximately 2.7 cm on image 3 of series 3, new from the prior study. Colonic diverticulosis. Advanced degenerative changes of the lower lumbar spine with at least moderate central canal stenosis at L3-L4. No acute intrapelvic abnormality. Mild nonspecific body wall edema. Artifact versus equivocal nondisplaced right sacral alar fracture. There is mild cortical angulation noted involving the bilateral inferior pubic rami which is unchanged on the right comparison and is new/progressed on the left. No definite acute fracture line identified within the pelvic ring. There is mild to moderate osteoarthritis in the bilateral hips. No acute fracture, dislocation or avascular necrosis. FEMUR: There is an acute comminuted fracture of the distal femoral diaphysis extending into the metadiaphyseal junction and distal metaphysis. Displacement measures up to 2 cm posteriorly and 1.3 cm medially. Mild apex lateral angulation of the fractures. Several the fracture fragments are impacted and mildly angulated. No fracture extension identified within the medial or lateral condyles of the identified. Arterial calcifications. Subcutaneous and deep tissue edema in the thigh, most pronounced distally with hemorrhage tracking along the quadriceps myofascial planes. KNEE: Moderate tricompartmental osteoarthritis of the knee. Acute distal femoral fracture as above. The medial and lateral femoral condyles, patella and proximal proximal tibia appear to be intact. There is an acute fracture involving the proximal fibular head and neck with minimal displacement measuring up to 2 mm. Moderate-sized lipohemarthrosis of the knee. Soft tissue edema as above. No intra-articular loose body. IMPRESSION: 1. Acute, comminuted, displaced, impacted and angulated fracture of the distal femoral diaphysis and metaphysis. There is no fracture extension into the femoral condyles. 2. Acute minimally displaced fracture of the fibular head and neck, partially imaged. 3. Ill-defined linear lucency of the right sacral ala is likely artifactual. A subtle acute fracture is considered less likely. 4. Moderate sized lipohemarthrosis of the knee. 5. Partially imaged 2.7 cm left renal lesion is new from 2006. This could be correlated with a follow-up ultrasound to exclude renal cell carcinoma. ACT 112: Negative or not required by law. The above report was generated using voice recognition software. It may contain grammatical, syntax or spelling errors. Electronically signed by: Robbie Henderson M.D. 03/25/2022 3:09 PM Foot X-Ray 03/25/22 17:12 XR foot RT min 3V routine CLINICAL HISTORY: right third toe laceration and pain COMPARISON STUDY: Right foot 03/13/2021. FINDINGS: There is a punctate ossific density adjacent to the dorsal base of the right second toe middle phalanx. This is new from the prior study and likely represents an old avulsion fracture. There is diffuse soft tissue swelling within the right foot. A plantar heel spur is noted. No erosive changes to suggest an osteomyelitis. The Lisfranc joint is intact. No dislocation. The bones are osteopenic. Mild degenerative changes within the right foot. There is mild cortical irregularity at the base of the right third toe proximal phalanx. This is likely positional. A nondisplaced fracture is considered less likely but not entirely excluded. Consider 2 week radiograph follow-up if the patient complains of pain at this location. IMPRESSION: 1. There is mild cortical irregularity at the base of the right third toe proximal phalanx. This is likely positional. A nondisplaced fracture is considered less likely but not entirely excluded. Consider 2 week radiograph follow-up if the patient complains of pain at this location. 2. Old small avulsion fracture at the right second toe middle phalanx. 3. Diffuse soft tissue swelling. ACT 112: Negative or not required by law. Electronically signed by: Geo Arenas M.D. 03/26/2022 7:47 AM Tibia/Fibula X-Ray 03/25/22 17:12 RIGHT TIBIA AND FIBULA 2 VIEWS CLINICAL HISTORY: Right leg injury. FINDINGS: AP and lateral views of the right tibia and fibula are obtained. Correlation is made with radiographs of the right knee dated 03/25/2022. The skeletal structures are osteopenic. There is no radiographic evidence of tibial or fibular fracture. There is an age indeterminant avulsion fracture along the dorsal aspect of the talus. The knee and ankle joints are grossly maintained. An os trigonum is incidentally noted. There are large dorsal and plantar calcaneal enthesophytes. Degenerative spurring is seen along the dorsal aspect of the tarsal bones. Diffuse soft tissue edema is present throughout the right lower extremity. IMPRESSION: 1. Soft tissue swelling with no radiographic evidence of right tibial or fibular fracture. 2. Age indeterminant avulsion fracture along the dorsal aspect of the talus. Correlate for point tenderness. 3. Large heel spurs. Electronically signed by: Jasper Hancock M.D. 03/26/2022 7:23 AM 03/25/22 11:45 CT bony pelvis wo con Routine CT femur RT wo con Routine CT knee RT wo con Routine Hospital Course (1) Fracture of distal end of right femur: Patient sustained a comminuted fracture of the distal right femur after fall in the hospital. Orthopedic consult was undertaken to determine if surgical correction is required. Patient have a Payne catheter placed. She will have parenteral and oral opiate pain medication. Currently appears to be neurovascularly intact acutely after fracture. Certainly her operative risk is at least moderate given her morbid obesity, COPD, cor pulmonale, previous history of heart disease, sleep apnea and diabetes her revised cardiac risk indicator gives her approximately 10% chance of 30-day risk of GA or cardiac arrest however given her body size and her nonweightbearing status patient will have significant risk if this is elected to be nonoperative repair Spoke to [facility] specialist Dr. De La Torre who accepted the patient in transfer to [facility] due to the complexity of her fracture and premorbid conditions creating [place] postoperative management. Itself to the expertise of [facility] can accomplish this journey through the perioperative period with out much problems for this patient (2) Cellulitis and abscess of leg: Cellulitis and drainage of leg and buttock- Minimal area involvement of perineum and buttock Daptomycin 4 mg/kg IV daily plus Aztreonam 2 g IV every 8 hours Appreciate wound cares expertise History of MRSA infection Hold empagliflozin (3) Hypothyroidism (acquired): Continue levothyroxine (4) CKD (chronic kidney disease) stage 4, GFR 15-29 ml/min: Creatinine appears in his typical range can kidney disease may really be more stage IIIb for this patient resume ty i for renal protective affects (5) DM type 2 (diabetes mellitus, type 2): Place on Accu-Cheks before meals and at bedtime with NovoLog coverage per scale Hold empagliflozin Insulin pump due to the patient's lethargy from opiate pain control for her fracture we have her on Lantus 50 units subcu twice daily plus sliding scale HGB a1c 8.5 on admission (6) GERD (gastroesophageal reflux disease): (7) MRSA infection: (8) COPD (chronic obstructive pulmonary disease): Continue routine inhalers and nebs, feels may have increased mucus, if issue consider mucolytic (9) Tracheostomy in place: Routine trach collar care does use minified oxygen for trach care at 8 L at times (10) Anxiety: Anxiety with depression- Continue bupropion, Lyrica an topiramate (11) Edema leg: torsemide 20 mg daily Total Time Total Time Spent Total Time Spent (In Minutes): It required greater than 30 minutes to prepare this patient for discharge Discharge Plan Discharge Items Patient Disposition: Transfer Acute Care Hospital Reason For Visit: PERINEAL PELVIC CELLULITIS Discharge Diagnosis: comminuted distal right femur fracture lle cellulitis r 2nd toe laceration repaired with 6 sutures insulin requiring diabetes morbid obesity Activity: Per Instructions section Non-emergency contact: Primary Care Provider and Surgeon Call non-emergency contact if: your symptoms worsen Follow-up/Referrals: Ofe Mcgee MD [Primary Care Provider] - Diet: Carb Consistent or DM2 Addtl Attending Provider Instructions: please follow up with surgery recommendations from [facility] Pending Studies at Discharge: No Stand-Alone Forms: My [facility] Skilled Items Patient informed of condition?: Yes DNR: No Discharge Level of Care: Other Communicable Disease: Yes Discharge Prognosis: Stable Lines: Peripheral IV Urinary Catheter: Yes Medications and DC Order Prescriptions: New torsemide 10 mg Tablet 20 mg PO QAM Qty: 3 RF: 0 daptomycin [Cubicin] 500 mg Recon Soln 500 mg Not Applicable UD PRN (Reason: cellulitis) Qty: 1 RF: 0 Continued atorvastatin 40 mg tablet 40 mg PO QPM Qty: 90 RF: 1 nitroglycerin 0.4 mg tablet, sublingual 0.4 mg SL DIRECTED PRN (Reason: Chest Pain) RF: 0 lorazepam [Ativan] 1 mg tablet 1 mg PO Q8H PRN (Reason: Anxiety) RF: 0 aspirin [Aspirin Low Dose] 81 mg Tablet,Delayed Release (Dr/Ec) 81 mg PO QAM RF: 0 bupropion HCl 100 mg Tablet Sustained-Release 12 Hr See Rx Instructions .ROUTE .COMPLEX RF: 0 spironolactone 25 mg Tablet 25 mg PO QAM RF: 0 isosorbide mononitrate 60 mg Tablet Extended Release 24 Hr 60 mg PO QAM RF: 0 topiramate 100 mg Tablet See Rx Instructions .ROUTE .COMPLEX RF: 0 metoprolol tartrate 25 mg Tablet 12.5 mg PO BID RF: 0 ipratropium-albuterol 0.5 mg-3 mg(2.5 mg base)/3 mL Solution For Nebulization 3 ml INHALATION QID PRN (Reason: COUGHING, WHEEZING, SHORTNESS OF BREATH) RF: 0 potassium chloride 10 mEq Tablet Extended Release 20 meq PO AMPM RF: 0 albuterol sulfate 90 mcg/actuation HFA aerosol inhaler 2 puff INHALATION Q4 PRN (Reason: Shortness Of Breath) RF: 0 hydrogen peroxide 3 % Solution 1 applic TOPICAL DIRECTED PRN (Reason: TRACH CARE) RF: 0 acetaminophen [Tylenol Extra Strength] 500 mg Tablet 500 mg PO QPM RF: 0 pregabalin [Lyrica] 100 mg Capsule 100 mg PO TID RF: 0 Discontinued lisinopril 2.5 mg Tablet 2.5 mg PO QAM RF: 0 torsemide 20 mg tablet See Rx Instructions .ROUTE .COMPLEX RF: 0 Combivent Respimat 20-100 mcg/actuation Mist 1 puff INHALATION QID RF: 0 azithromycin 250 mg tablet 250 mg PO DIRECTED RF: 0 No Action (DME) Contour Next Test Strips Strip See Rx Instructions .ROUTE .MEDSUPPLY Qty: 300 RF: 3 montelukast [Singulair] 10 mg tablet 10 mg PO QPM Qty: 30 RF: 5 (DME) Oxygen Home Liters Per Minute See Dose Instructions .ROUTE .MEDSUPPLY Qty: 1 RF: 0 (DME) nebulizers Misc See Rx Instructions miscellaneous .MEDSUPPLY Qty: 1 RF: 0 (DME) MiniMed 630G Insulin Pump Misc See Rx Instructions .ROUTE .MEDSUPPLY Qty: 1 RF: 0 docusate sodium 100 mg Capsule 100 mg PO BID RF: 0 multivitamin Tablet 1 tab PO QAM RF: 0 pantoprazole 40 mg Tablet,Delayed Release (Dr/Ec) 40 mg PO QAM RF: 0 betamethasone dipropionate 0.05 % Cream 1 applic TOPICAL BID PRN (Reason: Skin Irritation) RF: 0 folic acid 1 mg Tablet 1 mg PO QAM Qty: 0 RF: 0 insulin lispro [Humalog U-100 Insulin] 100 unit/mL Solution 0 unit continuous subcutaneous infusion USEASDIRECTD RF: 0 acidophilus-pectin, citrus [Acidophilus Probiotic] 100 million cell-10 mg Capsule 1 cap PO DAILY RF: 0 Jardiance 25 mg tablet 25 mg PO DAILY RF: 0 levothyroxine 200 mcg tablet 200 mcg PO DAILYBB RF: 0 Discharge Orders: Discharge Order (Routine); Ordered 03/26/22 Ordered By: Surya Jaramillo Admission Data Admit Date/Time: 03/23/22 15:37 Attending Provider: Surya Jaramillo Admit Provider: Chaparro Astudillo Primary Care Provider: Ofe Mcgee Other Providers: Chaparro Astudillo ; Solomon Su Coding Level of Care Code D/C DAY MANAGEMENT >30 MINS Diagnoses Fracture of distal end of right femur S72.401A Cellulitis and abscess of leg L03.119; L02.419 Hypothyroidism (acquired) E03.9 CKD (chronic kidney disease) stage 4, GFR 15-29 ml/min N18.4 DM type 2 (diabetes mellitus, type 2) E11.9 GERD (gastroesophageal reflux disease) K21.9 MRSA infection A49.02 COPD (chronic obstructive pulmonary disease) J44.[address] Z93.0 Anxiety F41.9 Edema leg R60.0
[2022-03-26 16:27] LABS: Hematocrit (blood only) 30.3 % (37-47); Mean Corpuscular Hemoglobin 27.7 pg (25-34); Mean Corpuscular Hgb Conc 29.7 g/dL (32-36); Mean Corpuscular Volume 93.2 fL (80-100); Mean Platelet Volume 9.5 fL (7.4-10.4); Platelet Count 211 K/uL (130-400); RDW Coefficient of Variation 16.7 % (11.5-14.5); RDW Standard Deviation 57.6 fL (36.4-46.3); Red Blood Count 3.25 M/uL (4.2-5.4); White Blood Count 12.02 K/uL (4.8-10.8)
[2022-03-26] MEDS: DAPTOmycin 400 MG in SYRINGE 0 ML IV SCH (21:33)
[2022-03-26] MEDS: MONTELUKAST SODIUM 10 MG TABLET PO SCH (21:45)
[2022-03-27] MEDS: AZTREONAM 2,000 MG in DEXTROSE 5% 100 ML IV SCH (01:57)
[2022-03-27] MEDS: LEVOTHYROXINE SODIUM 200 MCG TABLET PO SCH (06:10)
[2022-03-27] MEDS: oxyCODONE HCL IR 5 MG TAB (IMMEDIATE RELEASE) PO PRN (06:11)
[2022-03-27 06:16] LABS: Hematocrit (blood only) 30.9 % (37-47); Hemoglobin 9.1 g/dL (12.0-16.0); Mean Corpuscular Hemoglobin 27.7 pg (25-34); Mean Corpuscular Hgb Conc 29.4 g/dL (32-36); Mean Corpuscular Volume 94.2 fL (80-100); Mean Platelet Volume 9.3 fL (7.4-10.4); Nucleated RBC # (auto) 0.05 K/uL (0-0); Nucleated RBC % (auto) 0.4 %; Platelet Count 235 K/uL (130-400); RDW Coefficient of Variation 16.6 % (11.5-14.5); Red Blood Count 3.28 M/uL (4.2-5.4); White Blood Count 11.77 K/uL (4.8-10.8)
[2022-03-27 06:31] LABS: BUN Creatinine Ratio 24.9 (10-20); Calcium 8.8 mg/dl (8.5-10.1); Creatinine Clr Calc Pharmacy 53.3 ml/min; Est GFR (African American) 36.3 ml/min; Est GFR (Non-African American) 31.3 ml/min; Magnesium 2.2 mg/dl (1.7-2.4); Potassium 5.1 mmol/L (3.5-5.1)
--- NOTE | 2022-03-27 07:56 | Progress Notes ---
The patient is resting comfortably in bed. She is afebrile. Vital signs are stable. The dressing o n her right foot second toe is changed. She has intact capillary refill. The wound is benign. Ther e is no significant erythema. Minimal swelling. No drainage. The nurse will reapply a dressing. S he is to be transferred to [facility] later today for further management of her right femoral fracture . Job ID: [id number]
[2022-03-27] MEDS ORDERED: PATIROMER CALCIUM SORBITEX 8.4 GM PACK PO SCH (09:00)
--- NOTE | 2022-04-02 08:54 | Coding Query ---
To promote full compliance with coding requirements relating to patient care, provider participation is requested in all cases of technology training associate uncertainty. Please assist us with the question(s) below: Coding Question(s): The diagnosis below was documented in the ER, then subsequently fell off all further documentation. Please indicate if it is still a possible diagnosis or ruled out. Physician's Response(s): COPD EXACERBATION (documented in ER) ( ) Diagnosed and POA ( ) Diagnosed and not POA ( x ) Ruled out ( ) Other (please specify) MTDD
--- NOTE | 2022-04-02 08:58 | Coding Query ---
CODING QUERY To promote full compliance with coding requirements relating to patient care, provider participation is requested in all cases of doughnut dough mixer uncertainty. Please assist us with the question(s) below: Coding Question(s): The ER documents, "[facility] for COPD exacerbation" and then COPD Exacerbation is not documented past the ER. Please specify below, in your clinical opinion, to clarify the diagnosis most responsible for the Inpatient admission. ( ) COPD Exacerbation (xx ) Cellulitis of legs, buttock and perineum ( ) Abscess of leg and buttock ( xx ) Other: Please Specify___right distal femur fracture Physician's Response(s): Thank you Valentina Hyatt Principal Diagnosis: "that condition established after study, to be chiefly responsible for occasioning the admission of the patient to the hospital for care." Co-Existing Principal Diagnosis: "when two or more diagnoses equally meet the criteria for principal diagnosis as determined by the circumstances of admission, diagnostic work up, and/or therapy provided, and the Alphabetic Index, Tabular List, or another coding guideline does not provide sequencing direction, any one of the diagnoses may be sequenced first." "When the physician has documented what appears to be a current diagnosis in the body of the record, but has not included the diagnosis in the final diagnostic statement, the physician should be asked whether the diagnosis should be added." (Source [facility]oding [facility] 2 QTR90. p3-4) ALMAZ
== END 2022-03-27 09:14 | disposition short-term general hospital (02) | DRG 603 ==
LOC: ED 12:36 → 2N 15:37 → SUATTDRO 15:37 → 2N 16:40
DX: Z88.8 Allergy status to other drugs, medicaments and biological substances; J44.9 Chronic obstructive pulmonary disease, unspecified; I50.32 Chronic diastolic (congestive) heart failure; E11.22 Type 2 diabetes mellitus with diabetic chronic kidney disease; Z95.828 Presence of other vascular implants and grafts; I25.10 Atherosclerotic heart disease of native coronary artery without angina pectoris; F32.A Depression, unspecified; J96.11 Chronic respiratory failure with hypoxia; Z79.899 Other long term (current) drug therapy; Z88.1 Allergy status to other antibiotic agents; L03.115 Cellulitis of right lower limb; L03.116 Cellulitis of left lower limb; Z82.5 Family history of asthma and other chronic lower respiratory diseases; Y99.8 Other external cause status; Z79.890 Hormone replacement therapy; F41.9 Anxiety disorder, unspecified; Z68.45 Body mass index [BMI] 70 or greater, adult; E66.2 Morbid (severe) obesity with alveolar hypoventilation; Z79.82 Long term (current) use of aspirin; Z88.0 Allergy status to penicillin; S82.831A Other fracture of upper and lower end of right fibula, initial encounter for closed fracture; Z82.49 Family history of ischemic heart disease and other diseases of the circulatory system; Z79.84 Long term (current) use of oral hypoglycemic drugs; Z96.41 Presence of insulin pump (external) (internal); I27.81 Cor pulmonale (chronic); E03.9 Hypothyroidism, unspecified; Z79.4 Long term (current) use of insulin; L02.31 Cutaneous abscess of buttock; W19.XXXA Unspecified fall, initial encounter; I13.0 Hypertensive heart and chronic kidney disease with heart failure and stage 1 through stage 4 chronic kidney disease, or unspecified chronic kidney disease; N18.4 Chronic kidney disease, stage 4 (severe); L03.315 Cellulitis of perineum; Z93.0 Tracheostomy status; S72.411A Displaced unspecified condyle fracture of lower end of right femur, initial encounter for closed fracture; L02.419 Cutaneous abscess of limb, unspecified; Y92.239 Unspecified place in hospital as the place of occurrence of the external cause; Z86.14 Personal history of Methicillin resistant Staphylococcus aureus infection; G43.909 Migraine, unspecified, not intractable, without status migrainosus; L03.317 Cellulitis of buttock; S91.114A Laceration without foreign body of right lesser toe(s) without damage to nail, initial encounter

== ENCOUNTER 2022-07-24 15:56 | Observation (INO) ==
--- NOTE | 2022-07-24 16:48 | Emergency Department Note ---
Impression & Plan SOB (shortness of breath), Chest pain ED Provider Note NAME: ANN JACKSON AGE: 67 SEX: F : 1955 ARRIVES VIA: Ambulance INFORMANT: Patient, ED PROVIDER(S): Cy Briseno DO CHIEF COMPLAINT: Shortness of breath HPI: The patient is a 67-year-old female who presented to the emergency department for an evaluation of difficulty breathing. The patient was transferred from our facility to [facility] originally for a femur fracture. She was then transferred from [place] to [place] for inpatient rehab. She was on her way home from [place] today. She had no help at her home other than her daughter for her to get into the house. She needed significant help to get into the house. The patient called 911 so she could have a lift assist to help her get into the home but when 911 arrived they noticed that she was having significant difficulty breathing. She also complained of chest pain at that time. The patient was noted to have an oxygen saturation in the 80s. She has a trach which was suction by the prehospital personnel. Significant improvement of her symptoms was noted and the patient at this time is symptom-free. Her oxygen saturations are significantly improved but she is very concerned about her ability to go home as she has no help at home and home health will not be able to help her until Tuesday because of the holiday. She denies having any new falls. She denies having any new lower extremity swelling. She does have a brace on her left leg which she states is not really helpful with her trying to ambulate. ROS: See above HPI for pertinent positives & negatives. A total of 10 systems reviewed and were otherwise negative. PAST MEDICAL HISTORY: See Below PAST SURGICAL HISTORY: See Below FAMILY HISTORY: See Below SOCIAL HISTORY: See Below HOME MEDICATIONS: See Below ALLERGIES: See Below VITALS: See Below PHYSICAL EXAMINATION: GENERAL: Patient is awake alert in no acute distress patient is resting comfortably and showing no signs of anxiety EYES: The conjunctivae are clear. The pupils are round and reactive. EARS, NOSE, MOUTH AND THROAT: The nose is without any evidence of any deformity. Mucous membranes are moist. Tongue is midline. NECK: The neck is nontender and supple. Trach site was noted. There is no significant drainage or erythema. RESPIRATORY: Scattered rhonchi were noted throughout. CARDIOVASCULAR: Regular rate and rhythm noted there no murmurs rubs or gallops normal S1 normal S2. GASTROINTESTINAL: The abdomen is soft. Abdomen is nontender. MUSCULOSKELETAL/EXTREMITIES: There is no evidence of gross deformity full range of motion is noted in the hips and shoulders. SKIN: Pedal edema was noted bilaterally. Skin was warm and dry. NEUROLOGIC: Patient is awake alert and oriented x3. MEDICAL DECISION MAKING: The patient is a 67-year-old female who presented to the emergency department for an evaluation of difficulty breathing. The patient was recently discharged from inpatient rehab. She does have a trach. The trach was suctioned prior to arrival by the prehospital personnel. Her symptoms significantly improved. Unfortunately patient's social system at home is such that she does not have much help at home. She was set up with home health but this would not be available until Tuesday. The patient had a work-up which included EKG and chest x-ray. She also had laboratory studies. I discussed the patient's condition with her. I also discussed her condition with the on-call [facility] hospitalist. The patient was evaluated by the case folder in the emergency department. Triage Nursing notes reviewed. Prior medical records reviewed Vital Signs: reviewed and remarkable for no significant abnormalities Differential diagnosis: Reactive airway disease, pneumonia, pneumothorax, COPD, CHF, infections, cardiac ischemia, pulmonary embolism, musculoskeletal, gastrointestinal, as well as other pathologies. ER treatment provided: See below Diagnostics interpreted by me: ECG: EKG was obtained in the emergency department. My interpretation is normal sinus rhythm at 81 bpm. There is no ectopy. There is no acute ST segment abnormalities noted. Right bundle branch block pattern was favored. This was compared to a tracing from March 23, 2022. No changes were noted. Cardiac Monitoring: An order was placed for continuous cardiac monitoring. The monitor shows a rate of 76 bpm with sinus rhythm. Laboratory studies: As stated above and show below. Imaging studies: See below Consultation(s): I discussed this case with Mónica who is on for the [facility]. Past Med/Surg History Medical History Ambulatory dysfunction Anxiety Breathlessness Bronchiectasis Chest pain CHF (congestive heart failure) Chronic respiratory failure CKD (chronic kidney disease), stage III COPD (chronic obstructive pulmonary disease) DM type 2 (diabetes mellitus, type 2) Dyslipidemia Fluid overload HTN (hypertension) Hypoventilation associated with obesity Insulin-requiring or dependent type II diabetes mellitus Migraine Morbid obesity MRSA (methicillin resistant staph aureus) culture positive "sputum 11/2015" Right ventricular dysfunction Sepsis Tracheostomy in place Surgical History History of appendectomy History of cholecystectomy History of hysterectomy History of tonsillectomy and adenoidectomy S/P IVC filter Family History Mother Coronary heart disease COPD (chronic obstructive pulmonary disease) Father Suicide Hung himself. Pt found him. Unknown Lung cancer Social History Smoking Status: Never smoker Second Hand Exposure: No; Hx Alcohol Use: No Hx Substance Use: No Preferred Language: Guamanian Communication Ability: Effective Visual Impairment: Limited Edge Inker Heels Required: No Beliefs That Will Affect Care: None marital status: Current Living Situation: Family Current Living Situation Comment: Lives with Daughter current occupational status: disabled Feels Safe at Home: Yes Assistive Devices: Hospital Bed, Nebulizer, Oxygen - Continuous and Walker Allergies Allergies Allergy/AdvReac Type Severity Reaction Status Date / Time Penicillins Allergy Intermediate Hives Verified 07/24/22 18:18 amitriptyline Allergy Unknown Unknown Verified 07/24/22 18:18 doxycycline Allergy Unknown Unknown Verified 07/24/22 18:18 guaifenesin Allergy Unknown Unknown Verified 07/24/22 18:18 metformin Allergy Unknown Unknown Verified 07/24/22 18:18 phenylephrine Allergy Unknown Unknown Verified 07/24/22 18:18 pseudoephedrine Allergy Unknown Unknown Verified 07/24/22 18:18 tetracycline Allergy Unknown Unknown Verified 07/24/22 18:18 venlafaxine [From Effexor] Allergy Unknown Unknown Verified 07/24/22 18:18 gabapentin AdvReac Intermediate BECOMES Verified 07/24/22 18:18 AGGRESSIVE Home Meds Home Medications Medication Instructions Recorded Confirmed aspirin 81 mg tablet,delayed 81 mg PO QAM 04/06/19 07/24/22 release (Robert Low Dose Aspirin) bupropion HCl 100 mg tablet,12 hr See Rx Instructions .Route .COMPLEX 04/06/19 07/24/22 sustained-release docusate sodium 100 mg capsule 100 mg PO BID 04/06/19 07/24/22 isosorbide mononitrate 60 mg 60 mg PO QAM 04/06/19 07/24/22 tablet,extended release 24 hr metoprolol tartrate 25 mg tablet 12.5 mg PO BID 04/06/19 07/24/22 multivitamin 1 tab PO QAM 04/06/19 07/24/22 pantoprazole 40 mg tablet,delayed 40 mg PO QAM 04/06/19 07/24/22 release spironolactone 25 mg tablet 25 mg PO QAM 04/06/19 07/24/22 topiramate 100 mg tablet See Rx Instructions .Route .COMPLEX 04/06/19 07/24/22 Oxygen Home #1 ea 06/28/19 03/22/22 nitroglycerin 0.4 mg sublingual 0.4 mg sublingual DIRECTED PRN 06/28/19 07/24/22 tablet Chest Pain betamethasone dipropionate 0.05 % 1 applic topical BID PRN Skin 02/27/21 07/24/22 topical cream Irritation ipratropium 0.5 mg-albuterol 3 mg 3 ml inhalation Q4H PRN COUGHING, 02/27/21 07/24/22 (2.5 mg base)/3 mL nebulization WHEEZING, SHORTNESS OF BREATH soln lisinopril 2.5 mg tablet 2.5 mg PO QAM 02/27/21 07/24/22 potassium chloride 10 mEq 20 meq PO AMPM 02/27/21 07/24/22 tablet,extended release subcutaneous insulin pump ([employer] #1 ea 05/11/21 03/22/22 630G Insulin Pump) lorazepam 1 mg tablet (Ativan) 1 mg PO Q8H PRN Anxiety 08/20/21 07/24/22 albuterol sulfate 90 mcg/actuation 2 puff inhalation Q4 PRN Shortness 11/25/21 07/24/22 aerosol inhaler Of Breath ipratropium 20 mcg-albuterol 100 1 puff inhalation QID 11/25/21 07/24/22 mcg/actuation mist for inhalation (Combivent Respimat) acetaminophen 500 mg tablet 500 mg PO QPM 03/23/22 07/24/22 (Tylenol Extra Strength) acidophilus 100 million 1 cap PO DAILY 03/23/22 07/24/22 cell-pectin, citrus 10 mg capsule empagliflozin 25 mg tablet 25 mg PO DAILY 03/23/22 07/24/22 (Jardiance) hydrogen peroxide 3 % solution 1 applic topical DIRECTED PRN 03/23/22 07/24/22 TRACH CARE insulin lispro 100 unit/mL 0 unit subcut USEASDIRECTD 03/23/22 07/24/22 subcutaneous solution (Humalog U-100 Insulin) levothyroxine 200 mcg tablet 200 mcg PO DAILYBB 03/23/22 07/24/22 torsemide 10 mg tablet 10 mg PO BID 07/24/22 07/24/22 Previous Rx's Medication Instructions Recorded nebulizers #1 ea 12/24/20 folic acid 1 mg tablet 1 mg PO QAM #0 tabs 04/19/21 blood sugar diagnostic (Contour #300 ea 09/29/21 Next Test Strips) atorvastatin 40 mg tablet 40 mg PO QPM #90 tabs 01/14/22 montelukast 10 mg tablet 10 mg PO QPM #30 tabs 01/28/22 (Singulair) Results & Data (ED) Vital Signs Vital Signs - 24 hr 07/24/22 16:13 07/24/22 16:13 07/24/22 16:49 Temperature Temperature Source Oral Pulse Rate 76 Pulse Rate [Apical] 79 Pulse Rhythm Pulse Rhythm [Apical] Regular Pulse Strength Pulse Strength [Apical] Normal Respiratory Rate 22 22 Respiratory Effort / Characteristics Non-Labored Respiratory Depth Normal Respiratory Pattern Regular Blood Pressure Position Blood Pressure Position [Left Arm] Lying Pulse Oximetry 94 94 94 Oxygen Delivery Method Room Air Trach Collar Room Air Trach Collar Room Air Trach Collar Sepsis Recent Fever Within 48 Hours Sepsis New/Unexplained Change in Mental Status Sepsis Action Taken by Nursing 07/24/22 16:13 07/24/22 16:13 Temperature 36.9 C Temperature Source Oral Pulse Rate 74 Pulse Rate [Apical] Pulse Rhythm Regular Pulse Rhythm [Apical] Pulse Strength Normal Pulse Strength [Apical] Respiratory Rate 23 Respiratory Effort / Characteristics Non-Labored Non-Labored Spontaneous Respiratory Depth Normal Normal Respiratory Pattern Regular Blood Pressure Position Lying Blood Pressure Position [Left Arm] Pulse Oximetry 91 Oxygen Delivery Method Room Air Trach Collar Room Air Trach Collar Sepsis Recent Fever Within 48 Hours No Sepsis New/Unexplained Change in Mental Status N/A Sepsis Action Taken by Nursing No Action Required Home Medications Current Medication List: was personally reviewed by me Laboratory Data Attestation: I reviewed the patient's lab results. Result diagrams: 07/24/22 16:20 07/24/22 16:20 Lab Results 07/24/22 07/24/22 07/24/22 Range/Units 16:20 16:20 16:20 WBC 9.04 (4.8-10.8) K/ul RBC 4.02 (3.93-5.22) M/uL Hgb 11.4 L (12.0-16.0) g/dl Hct 37.5 (34.1-44.9) % MCV 93.3 (80.0-100.0) fL MCH 28.4 (25.0-34.0) pg MCHC 30.4 L (32.0-36.0) g/dL RDW Std Deviation 50.3 H (36.4-46.3) fL RDW Coeff of Amee 14.6 H (11.5-14.5) % Plt Count 249 (130-400) K/uL MPV 10.3 (9.4-12.3) fL Immature Gran % (Auto) 1.0 % Neut % (Auto) 71.7 % Lymph % (Auto) 16.0 % [place] % (Auto) 8.3 % Eos % (Auto) 2.4 % Baso % (Auto) 0.6 % Neut # (Auto) 6.48 (1.4-6.5) K/uL Lymph # (Auto) 1.45 (1.2-3.4) K/uL [place] # (Auto) 0.75 (0.24-0.82) K/uL Eos # (Auto) 0.22 (0-0.50) K/uL Baso # (Auto) 0.05 (0-0.2) K/uL Immature Gran # (Auto) 0.09 H (0.00-0.02) K/uL PT 11.4 (9.0-12.0) Seconds INR 1.1 (0.9-1.1) APTT 24.3 (21.0-31.0) Seconds PTT Ratio 0.9 Sodium 137 (136-145) mmol/L Potassium 4.1 (3.5-5.1) mmol/L Chloride 101 (98-107) mmol/L Carbon Dioxide 26 (21-32) mmol/L Anion Gap 10 (3-11) BUN 20 (6-23) mg/dl Creatinine 1.48 H (0.6-1.2) mg/dl Est Cr Clr Drug Dosing 21.8 ml/min Est GFR ( Amer) 42.3 ml/min Est GFR (Non-Af Amer) 36.5 ml/min BUN/Creatinine Ratio 13.5 (10-20) Glucose 238 H (70-99(Fasting)) mg/dl Calcium 9.3 (8.5-10.1) mg/dl Total Bilirubin 0.5 (0.2-1.0) mg/dl AST 18 (13-39) U/L ALT 23 (7-52) U/L Alkaline Phosphatase 95 (34-104) U/L Troponin I High Sens 7.5 (0-14) pg/ml Total Protein 7.2 (6.0-8.3) gm/dl Albumin 3.7 (3.4-5.0) gm/dl Globulin 3.5 (2.5-4.0) gm/dl Albumin/Globulin Ratio 1.1 (0.9-2) Lipase 32 (11-82) U/L SARS-CoV-2, RNA, NAAT (NEGATIVE) 07/24/22 Range/Units 17:30 WBC (4.8-10.8) K/ul RBC (3.93-5.22) M/uL Hgb (12.0-16.0) g/dl Hct (34.1-44.9) % MCV (80.0-100.0) fL MCH (25.0-34.0) pg MCHC (32.0-36.0) g/dL RDW Std Deviation (36.4-46.3) fL RDW Coeff of Amee (11.5-14.5) % Plt Count (130-400) K/uL MPV (9.4-12.3) fL Immature Gran % (Auto) % Neut % (Auto) % Lymph % (Auto) % [place] % (Auto) % Eos % (Auto) % Baso % (Auto) % Neut # (Auto) (1.4-6.5) K/uL Lymph # (Auto) (1.2-3.4) K/uL [place] # (Auto) (0.24-0.82) K/uL Eos # (Auto) (0-0.50) K/uL Baso # (Auto) (0-0.2) K/uL Immature Gran # (Auto) (0.00-0.02) K/uL PT (9.0-12.0) Seconds INR (0.9-1.1) APTT (21.0-31.0) Seconds PTT Ratio Sodium (136-145) mmol/L Potassium (3.5-5.1) mmol/L Chloride (98-107) mmol/L Carbon Dioxide (21-32) mmol/L Anion Gap (3-11) BUN (6-23) mg/dl Creatinine (0.6-1.2) mg/dl Est Cr Clr Drug Dosing ml/min Est GFR ( Amer) ml/min Est GFR (Non-Af Amer) ml/min BUN/Creatinine Ratio (10-20) Glucose (70-99(Fasting)) mg/dl Calcium (8.5-10.1) mg/dl Total Bilirubin (0.2-1.0) mg/dl AST (13-39) U/L ALT (7-52) U/L Alkaline Phosphatase (34-104) U/L Troponin I High Sens (0-14) pg/ml Total Protein (6.0-8.3) gm/dl Albumin (3.4-5.0) gm/dl Globulin (2.5-4.0) gm/dl Albumin/Globulin Ratio (0.9-2) Lipase (11-82) U/L SARS-CoV-2, RNA, NAAT NEGATIVE (NEGATIVE) Imaging Data Radiologist's Impression: Chest X-Ray 07/24/22 16:42 XR chest 1V portable HISTORY: Atypical Chest Pain COMPARISON: Chest 03/23/2022. FINDINGS: No pneumothorax. No pleural effusions. There are low lung volumes. The heart remains enlarged. There is mild central pulmonary vascular congestion without overt edema. No new focal lung consolidations to suggest pneumonia. A tracheostomy tube appears in good position. A few bibasilar linear densities favor subsegmental atelectasis or scarring. IMPRESSION: No change in the cardiomegaly and mild central pulmonary vascular congestion. ACT 112: Negative or not required by law. Electronically signed by: Geo Arenas M.D. 07/24/2022 5:31 PM Discharge Plan Visit Data Chief Complaint: Chest Pain Stated Complaint: CHEST PAIN ED Provider: Cy Briseno Discharge Problem: SOB (shortness of breath), Chest pain Patient Disposition: Being Evaluated by Hospitalist Forms Stand Alone Forms: Counts Include [facility] Prescriptions Prescriptions: No Action (DME) Contour Next Test Strips Strip See Rx Instructions .ROUTE .MEDSUPPLY Qty: 300 3RF Rx Instructions: test blood sugar 3 x daily atorvastatin 40 mg tablet 40 mg PO QPM Qty: 90 1RF montelukast [Singulair] 10 mg tablet 10 mg PO QPM Qty: 30 5RF nitroglycerin 0.4 mg tablet, sublingual 0.4 mg SL DIRECTED PRN (Reason: Chest Pain) (DME) Oxygen Home Liters Per Minute See Dose Instructions .ROUTE .MEDSUPPLY Qty: 1 Rx Instructions: As directed (DME) nebulizers Misc See Rx Instructions miscellaneous .MEDSUPPLY Qty: 1 0RF Rx Instructions: High Volume Nebulizer Use with solution for breathing as directed. Lifetime need. (DME) [employer] 630G Insulin Pump Misc See Rx Instructions .ROUTE .MEDSUPPLY Qty: 1 Rx Instructions: As directed lorazepam [Ativan] 1 mg tablet 1 mg PO Q8H PRN (Reason: Anxiety) aspirin [Robert Low Dose Aspirin] 81 mg Tablet,Delayed Release (Dr/Ec) 81 mg PO QAM bupropion HCl 100 mg Tablet Sustained-Release 12 Hr See Rx Instructions .ROUTE .COMPLEX Rx Instructions: 100 mg orally; TAKES 100 MG QAM, THEN 200 MG QPM. docusate sodium 100 mg Capsule 100 mg PO BID multivitamin Tablet 1 tab PO QAM spironolactone 25 mg Tablet 25 mg PO QAM isosorbide mononitrate 60 mg Tablet Extended Release 24 Hr 60 mg PO QAM pantoprazole 40 mg Tablet,Delayed Release (Dr/Ec) 40 mg PO QAM topiramate 100 mg Tablet See Rx Instructions .ROUTE .COMPLEX Rx Instructions: 100 MG ORALLY; TAKES 100 MG QAM, THEN 200 MG QHS metoprolol tartrate 25 mg Tablet 12.5 mg PO BID ipratropium-albuterol 0.5 mg-3 mg(2.5 mg base)/3 mL Solution For Nebulization 3 ml INHALATION Q4H PRN (Reason: COUGHING, WHEEZING, SHORTNESS OF BREATH) potassium chloride 10 mEq Tablet Extended Release 20 meq PO AMPM betamethasone dipropionate 0.05 % Cream 1 applic TOPICAL BID PRN (Reason: Skin Irritation) lisinopril 2.5 mg Tablet 2.5 mg PO QAM albuterol sulfate 90 mcg/actuation HFA aerosol inhaler 2 puff INHALATION Q4 PRN (Reason: Shortness Of Breath) Combivent Respimat 20-100 mcg/actuation Mist 1 puff INHALATION QID torsemide 10 mg tablet 10 mg PO BID Rx Instructions: TAKES QAM AND AFTERNOON folic acid 1 mg Tablet 1 mg PO QAM Qty: 0 0RF hydrogen peroxide 3 % Solution 1 applic TOPICAL DIRECTED PRN (Reason: TRACH CARE) acetaminophen [Tylenol Extra Strength] 500 mg Tablet 500 mg PO QPM insulin lispro [Humalog U-100 Insulin] 100 unit/mL Solution 0 unit subcut USEASDIRECTD Rx Instructions: PER PT "REHAB REMOVED INSULIN PUMP, NOW DOING WITH MEALS, COVERAGE". acidophilus-pectin, citrus [Acidophilus Probiotic] 100 million cell-10 mg Capsule 1 cap PO DAILY Jardiance 25 mg tablet 25 mg PO DAILY levothyroxine 200 mcg tablet 200 mcg PO DAILYBB Referrals Referrals: Ofe Mcgee MD [Primary Care Provider] -
[2022-07-24 17:03] LABS: Basophils # (auto) 0.05 K/uL (0-0.2); Basophils % (auto) 0.6 %; Eosinophils # (auto) 0.22 K/uL (0-0.50); Eosinophils % (auto) 2.4 %; Hematocrit (blood only) 37.5 % (34.1-44.9); Hemoglobin 11.4 g/dl (12.0-16.0); Immature Granulocytes # (auto) 0.09 K/uL (0.00-0.02); Lymphocytes # (auto) 1.45 K/uL (1.2-3.4); Mean Corpuscular Hemoglobin 28.4 pg (25.0-34.0); Mean Corpuscular Hgb Conc 30.4 g/dL (32.0-36.0); Mean Corpuscular Volume 93.3 fL (80.0-100.0); Mean Platelet Volume 10.3 fL (9.4-12.3); Monocytes # (auto) 0.75 K/uL (0.24-0.82); Monocytes % (auto) 8.3 %; Neutrophils # (auto) 6.48 K/uL (1.4-6.5); Neutrophils % (auto) 71.7 %; Platelet Count 249 K/uL (130-400); RDW Coefficient of Variation 14.6 % (11.5-14.5); RDW Standard Deviation 50.3 fL (36.4-46.3); Red Blood Count 4.02 M/uL (3.93-5.22); White Blood Count 9.04 K/ul (4.8-10.8)
[2022-07-24 17:16] LABS: INR 1.1 (0.9-1.1); Partial Thromboplastin Ratio 0.9; Partial Thromboplastin Time 24.3 Seconds (21.0-31.0); Prothrombin Time 11.4 Seconds (9.0-12.0)
[2022-07-24 17:19] LABS: Troponin I High Sensitivity 7.5 pg/ml (0-14)
[2022-07-24 17:28] LABS: Albumin Globulin Ratio 1.1 (0.9-2); Albumin Level 3.7 gm/dl (3.4-5.0); BUN Creatinine Ratio 13.5 (10-20); Bilirubin,Total 0.5 mg/dl (0.2-1.0); Calcium 9.3 mg/dl (8.5-10.1); Creatinine Clr Calc Pharmacy 21.8 ml/min; Est GFR (African American) 42.3 ml/min; Est GFR (Non-African American) 36.5 ml/min; Globulin 3.5 gm/dl (2.5-4.0); Potassium 4.1 mmol/L (3.5-5.1); Total Protein 7.2 gm/dl (6.0-8.3)
--- NOTE | 2022-07-24 17:33 | XRay Report ---
XR chest 1V portable HISTORY: Atypical Chest Pain COMPARISON: Chest 03/23/2022. FINDINGS: No pneumothorax. No pleural effusions. There are low lung volumes. The heart remains enlarg ed. There is mild central pulmonary vascular congestion without overt edema. No new focal lung consol idations to suggest pneumonia. A tracheostomy tube appears in good position. A few bibasilar linear d ensities favor subsegmental atelectasis or scarring. IMPRESSION: No change in the cardiomegaly and mild central pulmonary vascular congestion. ACT 112: Negative or not required by law. Electronically signed by: Geo Arenas M.D. 07/24/2022 5:31 PM
--- NOTE | 2022-07-24 17:57 | History & Physical Report ---
Date of Service July 24, 2022 History of Present Illness Primary Care Provider: Ofe Mcgee MD Allergies Allergy/AdvReac Type Severity Reaction Status Date / Time Penicillins Allergy Intermediate Hives Verified 03/23/22 15:10 amitriptyline Allergy Unknown Unknown Verified 03/23/22 15:10 doxycycline Allergy Unknown Unknown Verified 03/23/22 15:10 guaifenesin Allergy Unknown Unknown Verified 03/23/22 15:10 metformin Allergy Unknown Unknown Verified 03/23/22 15:10 phenylephrine Allergy Unknown Unknown Verified 03/23/22 15:10 pseudoephedrine Allergy Unknown Unknown Verified 03/23/22 15:10 tetracycline Allergy Unknown Unknown Verified 03/23/22 15:10 venlafaxine [From Effexor] Allergy Unknown Unknown Verified 03/23/22 15:10 gabapentin AdvReac Intermediate BECOMES Verified 03/23/22 15:10 AGGRESSIVE Home Medications Medication Instructions Recorded Confirmed Type aspirin 81 mg tablet,delayed 81 mg PO QAM 04/06/19 03/23/22 History release (Robert Low Dose Aspirin) bupropion HCl 100 mg tablet,12 hr See Rx Instructions .Route .COMPLEX 04/06/19 03/23/22 History sustained-release docusate sodium 100 mg capsule 100 mg PO BID 04/06/19 03/23/22 History isosorbide mononitrate 60 mg 60 mg PO QAM 04/06/19 03/23/22 History tablet,extended release 24 hr metoprolol tartrate 25 mg tablet 12.5 mg PO BID 04/06/19 03/23/22 History multivitamin 1 tab PO QAM 04/06/19 03/23/22 History pantoprazole 40 mg tablet,delayed 40 mg PO QAM 04/06/19 03/23/22 History release spironolactone 25 mg tablet 25 mg PO QAM 04/06/19 03/23/22 History topiramate 100 mg tablet See Rx Instructions .Route .COMPLEX 04/06/19 03/23/22 History Oxygen Home #1 ea 06/28/19 03/22/22 History nitroglycerin 0.4 mg sublingual 0.4 mg sublingual DIRECTED PRN 06/28/19 03/23/22 History tablet Chest Pain nebulizers #1 ea 12/24/20 03/22/22 Rx betamethasone dipropionate 0.05 % 1 applic topical BID PRN Skin 02/27/21 03/23/22 History topical cream Irritation ipratropium 0.5 mg-albuterol 3 mg 3 ml inhalation QID PRN COUGHING, 02/27/21 03/23/22 History (2.5 mg base)/3 mL nebulization WHEEZING, SHORTNESS OF BREATH soln lisinopril 2.5 mg tablet 2.5 mg PO QAM 02/27/21 03/23/22 History potassium chloride 10 mEq 20 meq PO AMPM 02/27/21 03/23/22 History tablet,extended release folic acid 1 mg tablet 1 mg PO QAM #0 tabs 04/19/21 03/23/22 Rx subcutaneous insulin pump (MiniMed #1 ea 05/11/21 03/22/22 History 630G Insulin Pump) lorazepam 1 mg tablet (Ativan) 1 mg PO Q8H PRN Anxiety 08/20/21 03/23/22 History blood sugar diagnostic (Contour #300 ea 09/29/21 03/22/22 Rx Next Test Strips) albuterol sulfate 90 mcg/actuation 2 puff inhalation Q4 PRN Shortness 11/25/21 03/23/22 History aerosol inhaler Of Breath ipratropium 20 mcg-albuterol 100 1 puff inhalation QID 11/25/21 03/23/22 History mcg/actuation mist for inhalation (Combivent Respimat) torsemide 20 mg tablet See Rx Instructions .Route .COMPLEX 11/25/21 03/23/22 History atorvastatin 40 mg tablet 40 mg PO QPM #90 tabs 01/14/22 03/23/22 Rx montelukast 10 mg tablet 10 mg PO QPM #30 tabs 01/28/22 03/23/22 Rx (Singulair) acetaminophen 500 mg tablet 500 mg PO QPM 03/23/22 03/23/22 History (Tylenol Extra Strength) acidophilus 100 million 1 cap PO DAILY 03/23/22 03/23/22 History cell-pectin, citrus 10 mg capsule azithromycin 250 mg tablet 250 mg PO DIRECTED 03/23/22 03/23/22 History empagliflozin 25 mg tablet 25 mg PO DAILY 03/23/22 03/23/22 History (Jardiance) hydrogen peroxide 3 % solution 1 applic topical DIRECTED PRN 03/23/22 03/23/22 History TRACH CARE insulin lispro 100 unit/mL 0 unit continuous subcutaneous 03/23/22 03/23/22 History subcutaneous solution (Humalog infusion USEASDIRECTD U-100 Insulin) levothyroxine 200 mcg tablet 200 mcg PO DAILYBB 03/23/22 03/23/22 History pregabalin 100 mg capsule (Lyrica) 100 mg PO TID 03/23/22 03/23/22 History daptomycin 500 mg intravenous 500 mg Not Applicable UD PRN 03/26/22 Rx solution (Cubicin) cellulitis #1 ea torsemide 10 mg tablet 20 mg PO QAM #3 tabs 03/26/22 Rx Past Med/Surg History Medical History Ambulatory dysfunction Anxiety Breathlessness Bronchiectasis Chest pain CHF (congestive heart failure) Chronic respiratory failure CKD (chronic kidney disease), stage III COPD (chronic obstructive pulmonary disease) DM type 2 (diabetes mellitus, type 2) Dyslipidemia Fluid overload HTN (hypertension) Hypoventilation associated with obesity Insulin-requiring or dependent type II diabetes mellitus Migraine Morbid obesity MRSA (methicillin resistant staph aureus) culture positive "sputum 11/2015" Right ventricular dysfunction Sepsis Tracheostomy in place Surgical History History of appendectomy History of cholecystectomy History of hysterectomy History of tonsillectomy and adenoidectomy S/P IVC filter Family History Mother Coronary heart disease COPD (chronic obstructive pulmonary disease) Father Suicide Hung himself. Pt found him. 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 Required: No Beliefs That Will Affect Care: None marital status: Current Living Situation: Family Current Living Situation Comment: Lives with Daughter current occupational status: disabled Feels Safe at Home: Yes Assistive Devices: Hospital Bed, Nebulizer, Oxygen - Continuous and Walker Results & Data Results & Data ([facility]) Vital Signs (Past 12 Hours) Vital Signs Temp Pulse Pulse Resp Pulse Ox O2 Del Method 07/24/22 16:13 Room Air, Trach Collar 07/24/22 16:13 36.9 C 74 23 91 Room Air, Trach Collar 07/24/22 16:49 76 22 94 Room Air, Trach Collar 07/24/22 16:13 79 22 94 Room Air, Trach Collar 07/24/22 16:13 94 Room Air, Trach Collar PG Care Time/CCT Total # of Minutes Spent Total Time Spent with Patient: Total time spent is greater than 50% in coordination of care (as documented) at patient's floor/unit and/or counseling patient: Coding
--- NOTE | 2022-07-24 18:41 | History & Physical Report ---
Date of Service July 24, 2022 Assessment & Plan (1) Chest pain: Plan: Almost certainly from mucous plugging of her tracheostomy and subsequent dyspnea, possibly transient hypoxia. Now has resolved. Trach care. That said, with her coronary disease risks and generally undefined coronary status (to the best that I can recall from taking care of her before) certainly could precipitate anginaher initial high-sensitivity troponin is extremely reassuringwe will follow-up with troponin in few hours, and get an echocardiogram. Further work-up with perfusion testing if required. (2) Weakness: Plan: It sounds like she has not really rebounded from her femur fracture and weakness/surgery/etc. In jhon discussions with the patient she did not feel like she was going to do well at home, and would like PT/OT eval and treat, as well as evaluation for more of a subacute rehab ongoing at a residential (3) CKD (chronic kidney disease) stage 4, GFR 15-29 ml/min: Plan: Creatinine pretty stablefollow (4) Morbid obesity: Plan: An unfortunate root cause of much of her comorbidities (5) Type 2 diabetes mellitus: Plan: Check an A1c, insulin management, follow (6) DVT prophylaxis: Plan: Lovenox (7) Chronic respiratory failure: Plan: Rudolph. on now, labeled as having COPD, but I believe most of this is OHS. Has tracheostomytrach care (8) HTN (hypertension): Plan: Home meds (9) Hypoventilation associated with obesity: Plan: Tracheostomy, will need to clarify with patient if she is using any sort of assistive device at sleep (10) Chronic diastolic congestive heart failure: Plan: Home meds (11) Cor pulmonale: Plan: Home meds (12) Coronary artery disease: Plan: Home meds/further work-up as above noted History of Present Illness Chief Complaint: Chest pain, shortness of breath. Weakness. Primary Care Provider: Ofe Mcgee MD Patient is a very pleasant 67-year-old female known to me from prior admissions. She was here in March with a fracture, transferred to [place] for surgery, transferred from [place] to a rehab in [place] where she has been ever since. She noted that she did not feel like she was ready to go homewas still quite weakbut noted that the facility was only going to keep her if she started paying [id number], which she noted she was not able to do. She then was discharged home with a plan for home health and her daughter to help care for her. When asked directly, she did not feel that this was a very viable plan but felt that she had no other choice. When she made it home in her driveway her legs were too weak to stand and she fell in the driveway. She also became short of breath and subsequently had chest painalthough she notes all of this was alleviated when her trach was suctioned. Other than being a bit upset about the situation and needing to pee, she has no complaints still ongoing. Allergies Allergy/AdvReac Type Severity Reaction Status Date / Time Penicillins Allergy Intermediate Hives Verified 07/24/22 18:18 amitriptyline Allergy Unknown Unknown Verified 07/24/22 18:18 doxycycline Allergy Unknown Unknown Verified 07/24/22 18:18 guaifenesin Allergy Unknown Unknown Verified 07/24/22 18:18 metformin Allergy Unknown Unknown Verified 07/24/22 18:18 phenylephrine Allergy Unknown Unknown Verified 07/24/22 18:18 pseudoephedrine Allergy Unknown Unknown Verified 07/24/22 18:18 tetracycline Allergy Unknown Unknown Verified 07/24/22 18:18 venlafaxine [From Effexor] Allergy Unknown Unknown Verified 07/24/22 18:18 gabapentin AdvReac Intermediate BECOMES Verified 07/24/22 18:18 AGGRESSIVE Home Medications Medication Instructions Recorded Confirmed Type aspirin 81 mg tablet,delayed 81 mg PO QAM 04/06/19 03/23/22 History release (Robert Low Dose Aspirin) bupropion HCl 100 mg tablet,12 hr See Rx Instructions .Route .COMPLEX 04/06/19 03/23/22 History sustained-release docusate sodium 100 mg capsule 100 mg PO BID 04/06/19 03/23/22 History isosorbide mononitrate 60 mg 60 mg PO QAM 04/06/19 03/23/22 History tablet,extended release 24 hr metoprolol tartrate 25 mg tablet 12.5 mg PO BID 04/06/19 03/23/22 History multivitamin 1 tab PO QAM 04/06/19 03/23/22 History pantoprazole 40 mg tablet,delayed 40 mg PO QAM 04/06/19 03/23/22 History release spironolactone 25 mg tablet 25 mg PO QAM 04/06/19 03/23/22 History topiramate 100 mg tablet See Rx Instructions .Route .COMPLEX 04/06/19 03/23/22 History Oxygen Home #1 ea 06/28/19 03/22/22 History nitroglycerin 0.4 mg sublingual 0.4 mg sublingual DIRECTED PRN 06/28/19 03/23/22 History tablet Chest Pain nebulizers #1 ea 12/24/20 03/22/22 Rx betamethasone dipropionate 0.05 % 1 applic topical BID PRN Skin 02/27/21 03/23/22 History topical cream Irritation ipratropium 0.5 mg-albuterol 3 mg 3 ml inhalation QID PRN COUGHING, 02/27/21 History (2.5 mg base)/3 mL nebulization WHEEZING, SHORTNESS OF BREATH soln lisinopril 2.5 mg tablet 2.5 mg PO QAM 02/27/21 03/23/22 History potassium chloride 10 mEq 20 meq PO AMPM 02/27/21 03/23/22 History tablet,extended release folic acid 1 mg tablet 1 mg PO QAM #0 tabs 04/19/21 03/23/22 Rx subcutaneous insulin pump (MiniMed #1 ea 05/11/21 03/22/22 History 630G Insulin Pump) lorazepam 1 mg tablet (Ativan) 1 mg PO Q8H PRN Anxiety 08/20/21 03/23/22 History blood sugar diagnostic (Contour #300 ea 09/29/21 03/22/22 Rx Next Test Strips) albuterol sulfate 90 mcg/actuation 2 puff inhalation Q4 PRN Shortness 11/25/21 03/23/22 History aerosol inhaler Of Breath ipratropium 20 mcg-albuterol 100 1 puff inhalation QID 11/25/21 03/23/22 History mcg/actuation mist for inhalation (Combivent Respimat) atorvastatin 40 mg tablet 40 mg PO QPM #90 tabs 01/14/22 03/23/22 Rx montelukast 10 mg tablet 10 mg PO QPM #30 tabs 01/28/22 03/23/22 Rx (Singulair) acetaminophen 500 mg tablet 500 mg PO QPM 03/23/22 03/23/22 History (Tylenol Extra Strength) acidophilus 100 million 1 cap PO DAILY 03/23/22 03/23/22 History cell-pectin, citrus 10 mg capsule empagliflozin 25 mg tablet 25 mg PO DAILY 03/23/22 03/23/22 History (Jardiance) hydrogen peroxide 3 % solution 1 applic topical DIRECTED PRN 03/23/22 03/23/22 History TRACH CARE insulin lispro 100 unit/mL 0 unit continuous subcutaneous 03/23/22 03/23/22 History subcutaneous solution (Humalog infusion USEASDIRECTD U-100 Insulin) levothyroxine 200 mcg tablet 200 mcg PO DAILYBB 03/23/22 03/23/22 History torsemide 10 mg tablet 10 mg PO BID 07/24/22 07/24/22 History Past Med/Surg History Medical History Ambulatory dysfunction Anxiety Breathlessness Bronchiectasis Chest pain CHF (congestive heart failure) Chronic respiratory failure CKD (chronic kidney disease), stage III COPD (chronic obstructive pulmonary disease) DM type 2 (diabetes mellitus, type 2) Dyslipidemia Fluid overload HTN (hypertension) Hypoventilation associated with obesity Insulin-requiring or dependent type II diabetes mellitus Migraine Morbid obesity MRSA (methicillin resistant staph aureus) culture positive "sputum 11/2015" Right ventricular dysfunction Sepsis Tracheostomy in place Surgical History History of appendectomy History of cholecystectomy History of hysterectomy History of tonsillectomy and adenoidectomy S/P IVC filter Family History Mother Coronary heart disease COPD (chronic obstructive pulmonary disease) Father Suicide Hung himself. Pt found him. Unknown Lung cancer Social History Smoking Status: Never smoker Second Hand Exposure: No; Hx Alcohol Use: No Hx Substance Use: No Preferred Language: Greenlandic Communication Ability: Effective Visual Impairment: Limited Oral Surgery Physician Required: No Beliefs That Will Affect Care: None marital status: Current Living Situation: Family Current Living Situation Comment: Lives with Daughter current occupational status: disabled Feels Safe at Home: Yes Assistive Devices: Hospital Bed, Nebulizer, Oxygen - Continuous and Walker Review of Systems Review of Systems: All systems reviewed & are unremarkable except as noted in HPI & below Physical Exam 2 Physical Exam: General she is awake alert oriented x3 pleasant no distress. HEENT normocephalic atraumatic mucous membranes moist. Metal tracheostomy in place. Cardio is regular very distant no rubs murmurs or gallops. Lungs are very distant and quiet, no obvious adventitious sounds no obvious rales rhonchi or wheezes, no conversational dyspnea no accessory muscle useshe does have a mucous rattle in her upper airway at times. Abdomen is soft nondistended nontender no masses organomegaly. Extremities are without cyanosis or clubbing there is bilateral lower extremity edema equal/symmetric/consistent with venous stasis she has a leg brace on her right leg, no calf tenderness. Skin without rashes, pallor, icterus. Neuro shows cranial nerves II through XII be grossly intact gross motor and sensory are intact. Mental status shows her to be at her baseline level of anxiety, good recent and remote recall, normal mood and affect outside of above-mentioned baseline state of anxiety. Results & Data Results & Data ([facility]) Vital Signs (Past 12 Hours) Vital Signs Temp Pulse Pulse Resp Pulse Ox O2 Del Method 07/24/22 16:13 Room Air, Trach Collar 07/24/22 16:13 98.4 F 74 23 91 Room Air, Trach Collar 07/24/22 16:49 76 22 94 Room Air, Trach Collar 07/24/22 16:13 79 22 94 Room Air, Trach Collar 07/24/22 16:13 94 Room Air, Trach Collar Code Status & VTE Plan VTE Prophylaxis Plan VTE Prophylaxis will be ordered: Yes PG Care Time/CCT Total # of Minutes Spent Total Time Spent with Patient: Total time spent is greater than 50% in coordination of care (as documented) at patient's floor/unit and/or counseling patient: Coding Level of Care Code 14513 Initial Inpt Care Lvl 3 Diagnoses Chest pain R07.9 Weakness R53.1 CKD (chronic kidney disease) stage 4, GFR 15-29 ml/min N18.4 Morbid obesity E66.01 Type 2 diabetes mellitus E11.9 DVT prophylaxis Z29.9 Chronic respiratory failure J96.10 Respiratory failure complication: unspecified whether with hypoxia or hypercapnia HTN (hypertension) I10 Hypoventilation associated with obesity E66.2 Chronic diastolic congestive heart failure I50.32 Cor pulmonale I27.81 Coronary artery disease I25.10 (1) Chronic respiratory failure Respiratory failure complication: unspecified whether with hypoxia or hypercapnia Qualified Code(s): J96.10 - Chronic respiratory failure, unspecified whether with hypoxia or hypercapnia
[2022-07-24] MEDS ORDERED: PHARMACY GLYCEMIC MGMT CONSULT PRN (19:39)
[2022-07-24] MEDS ORDERED: ALBUTEROL HFA 8 GM INHALER INH PRN (19:39)
[2022-07-24] MEDS ORDERED: LORazepam 1 MG TAB PO PRN (19:39)
[2022-07-24] MEDS ORDERED: buPROPion SR 100 MG TABCR PO SCH (19:39)
[2022-07-24] MEDS ORDERED: MAGNESIUM HYDROXIDE SUSP 30 ML UDC PO PRN (19:39)
[2022-07-24] MEDS ORDERED: HYDROGEN PEROXIDE 3% TOP PRN (19:39)
[2022-07-24] MEDS ORDERED: BETAMETHASONE DIP AUG (DIPROLENE) 0.05% CR 15 GM TUBE EXT PRN (19:39)
[2022-07-24] MEDS ORDERED: TOPIRAMATE 100 MG TAB PO SCH (19:39)
[2022-07-24] MEDS ORDERED: ONDANSETRON INJ 2 MG/ML 2 ML VIAL IV PRN (19:39)
[2022-07-24] MEDS ORDERED: NITROGLYCERIN SL 0.4 MG/TAB TAB SL PRN ×2 (19:39)
[2022-07-24] MEDS ORDERED: ENOXAPARIN INJ 40 MG/0.4 ML SYR SQ SCH (21:00)
[2022-07-24] MEDS ORDERED: IPRATROPIUM BROMIDE/ALBUTEROL respimat INH INH SCH (21:00)
[2022-07-24] MEDS ORDERED: DEXTROSE 50% 50 ML SYRINGE IV PRN (21:15)
[2022-07-24] MEDS ORDERED: GLUCAGON FOR INJ 1 MG VIAL IM PRN (21:15)
[2022-07-24] MEDS ORDERED: GLUCOSE 10 TAB/TUBE PO PRN (21:15)
[2022-07-24] MEDS ORDERED: GLUCOSE 40% GEL 15 GM TUBE PO PRN (21:15)
[2022-07-24] MEDS ORDERED: CARBOHYDRATES FOR HYPOGLYCEMIA PO PRN (21:15)
[2022-07-24] MEDS: INSULIN ASPART PER UNIT SC SCH (21:27)
[2022-07-24] MEDS: LANTUS PER UNIT CHARGE SQ SCH (21:27)
[2022-07-24] MEDS: ACETAMINOPHEN 500 MG TAB PO SCH (21:33)
[2022-07-24] MEDS: DOCUSATE SODIUM 100 MG CAP PO SCH (21:34)
[2022-07-24] MEDS: TOPIRAMATE 100 MG TAB PO SCH (21:34)
[2022-07-24] MEDS: ATORVASTATIN 40 MG TAB PO SCH (21:34)
[2022-07-24] MEDS: METOPROLOL TARTRATE 25 MG TAB PO SCH (21:35)
[2022-07-24] MEDS: buPROPion SR 100 MG TABCR PO SCH (21:35)
[2022-07-24] MEDS: POTASSIUM CHLORIDE CRTAB 20 MEQ TABCR PO SCH (21:35)
[2022-07-24] MEDS: MONTELUKAST SODIUM 10 MG TABLET PO SCH (21:35)
[2022-07-25] MEDS: LEVOTHYROXINE SODIUM 200 MCG TABLET PO SCH (05:52)
--- NOTE | 2022-07-25 07:18 | Electrocardiogram Report ---
Test Reason : Blood Pressure : / mmHG Vent. Rate : 081 BPM Atrial Rate : 081 BPM P-R Int : 216 ms QRS Dur : 142 ms QT Int : 414 ms P-R-T Axes : 042 -39 015 degrees QTc Int : 480 ms Sinus rhythm with 1st degree A-V block Left axis deviation Right bundle branch block Poor R wave progression, consider anterior LA vs. lead placement vs. LVH Abnormal ECG When compared with ECG of 23-MAR-2022 12:47, Borderline criteria for Lateral infarct are no longer Present Confirmed by Rahul Quiroz ([id number]) on 07/25/2022 7:17:42 AM Referred By: REFERRED SELF Confirmed By:Mike Quiroz
--- NOTE | 2022-07-25 07:20 | Electrocardiogram Report ---
Test Reason : Blood Pressure : / mmHG Vent. Rate : 078 BPM Atrial Rate : 078 BPM P-R Int : 222 ms QRS Dur : 140 ms QT Int : 404 ms P-R-T Axes : 072 -41 013 degrees QTc Int : 460 ms Sinus rhythm with 1st degree A-V block Left axis deviation Right bundle branch block Possible Lateral infarct , age undetermined Abnormal ECG When compared with ECG of 24-JUL-2022 16:05, (unconfirmed) Borderline criteria for Lateral infarct are now Present Confirmed by Rahul Quiroz ([id number]) on 07/25/2022 7:20:03 AM Referred By: REFERRED SELF Confirmed By:Mike Quiroz
[2022-07-25] MEDS: ISOSORBIDE MONO EXTENDED REL 60 MG TABCR PO SCH (07:37)
[2022-07-25] MEDS: METOPROLOL TARTRATE 25 MG TAB PO SCH ×2 (07:37→21:09)
[2022-07-25] MEDS: buPROPion SR 100 MG TABCR PO SCH ×2 (07:38→21:08)
[2022-07-25] MEDS: FOLIC ACID 1 MG TAB PO SCH (07:39)
[2022-07-25] MEDS: POTASSIUM CHLORIDE CRTAB 20 MEQ TABCR PO SCH ×2 (07:39→21:08)
[2022-07-25] MEDS: PANTOprazole 40 MG TAB PO SCH (07:40)
[2022-07-25] MEDS: ADVANCED PROBIOTIC 1250 MG CAPSULE PO SCH (07:40)
[2022-07-25] MEDS: lisinopril 2.5 MG TAB PO SCH (07:40)
[2022-07-25] MEDS: TORSEMIDE 10 MG TAB PO SCH ×2 (07:40→13:29)
[2022-07-25] MEDS: MULTIVITAMIN TAB PO SCH (07:41)
[2022-07-25] MEDS: ASPIRIN 81 MG ECTAB PO SCH (07:41)
[2022-07-25] MEDS: DOCUSATE SODIUM 100 MG CAP PO SCH ×2 (07:41→21:10)
[2022-07-25] MEDS: TOPIRAMATE 100 MG TAB PO SCH ×2 (07:42→21:09)
[2022-07-25] MEDS: SPIRONOLACTONE 25 MG TAB PO SCH (07:42)
[2022-07-25] MEDS: LANTUS PER UNIT CHARGE SQ SCH ×2 (07:45→21:07)
[2022-07-25] MEDS: INSULIN ASPART PER UNIT SC SCH ×4 (07:45→21:07)
[2022-07-25] MEDS: Ipratropium HFA Inhaler (Combivent Respimat P&T Subs) INH SCH ×4 (08:37→19:05)
[2022-07-25] MEDS: Albuterol HFA 8 GM Inhaler (Combivent Respimat P&T Subs) INH SCH ×4 (08:37→19:06)
[2022-07-25] MEDS: ACETAMINOPHEN 325 MG TAB PO PRN (08:49)
--- NOTE | 2022-07-25 09:28 | Pharmacy Report ---
Pharmacy Glycemic Short Note 2 - Date of Service July 25, 2022 - Glycemic Short BSG Results (Last 24 hours): 07/24/22 07/24/22 07/25/22 16:20 19:56 07:19 Glucose 238 H POC Glucose 218 H 197 H OUTPATIENT ANTIDIABETIC REGIMEN: * Jardiance 25mg PO daily * Patient on insulin pump in the past (Basal rate 6 units/hr, bolus with 50 units TID meals) * A1c 8.5% 03/24/22 ASSESSMENT: * 67 year old female admitted w/ CP and SOB, morbid obesity, only on PO med for DM, but was previously on high dose insulin via pump. * Basal bolus insulin started yesterday, continue and titrate to goal. PLAN FOR INPATIENT GLYCEMIC CONTROL: * Hold outpatient oral diabetes medications * Basal insulin * Lantus 30 units SQ BID * Bolus insulin * NovoLog per scale ACHS or Q6hrs while NPO * Goal Range: Low 110 mg/dL - High 140 mg/dL * Correction Factor: 10 mg/dL/unit * Nutritional / Prandial insulin per carb ratio of 1 unit per 3 grams CHO consumed
--- NOTE | 2022-07-25 13:32 | Hospitalist Progress Note ---
Date of Service July 25, 2022 Assessment & Plan (1) Chest pain: Plan: Formal read on echocardiogram pending, but given clinical context as well as very low high-sensitivity troponin levelsstrongly suspect that some of her chest pain and shortness of breath was mucous plugging/trach issues, and some was probably anxiety. She agrees. Stable for transfer to medical.. (2) Weakness: Plan: PT/OT eval and treat, current goal subacute rehab at [facility] (3) CKD (chronic kidney disease) stage 4, GFR 15-29 ml/min: Plan: Creatinine pretty stablefollow periodically (4) Morbid obesity: Plan: An unfortunate root cause of much of her comorbidities (5) Type 2 diabetes mellitus: Plan: Check an A1c, insulin management, pharmacy glycemic consult (6) DVT prophylaxis: Plan: Lovenox (7) Chronic respiratory failure: Plan: Stable. Probably predominantly OHS mediated (8) HTN (hypertension): Plan: Home meds Blood pressure has been acceptable (9) Hypoventilation associated with obesity: Plan: Tracheostomy, will need to clarify with patient if she is using any sort of assistive device at sleep (10) Chronic diastolic congestive heart failure: Plan: Home meds (11) Cor pulmonale: Plan: Home meds (12) Coronary artery disease: Plan: Home meds/further work-up as above noted Plan DVT prophylaxis with Lovenox Admission and Anticipated Discharge Date Admission Date: July 24, 2022 Subjective Feels better. Had some shortness of breath and chest pressure late last night as wellself resolved. Overall feels well now. Still very weakstill very much interested in going to [facility] as a subacute rehab. Right now her 2 main choices would be [facility] or [facility] Review of Systems Review of Systems: All systems reviewed & are unremarkable except as noted in HPI & below Physical Exam Physical Exam: General she is awake and alert pleasant no distress. HEENT normocephalic atraumatic mucous membranes moist. Breathing unlabored no accessory muscle use good effort. Trach appears clear. No focal neurodeficits. Skin without rashes, pallor, icterus. Results & Data Results & Data ([facility]) Vital Signs (Past 12 Hours) Vital Signs Temp Pulse Pulse Resp BP Pulse Ox O2 Del Method 07/25/22 11:09 71 16 93 Room Air 07/25/22 07:20 70 16 92 Room Air 07/25/22 10:40 97.9 F 72 18 114/62 92 Room Air 07/25/22 09:49 Room Air 07/25/22 07:21 97.9 F 73 19 112/72 93 Room Air 07/25/22 07:13 66 07/25/22 07:07 66 07/25/22 03:00 98.2 F 66 20 101/77 96 PG Care Time/CCT Total # of Minutes Spent Total Time Spent with Patient: Total time spent is greater than 50% in coordination of care (as documented) at patient's floor/unit and/or counseling patient: Coding Level of Care Code 45542 Subseq Hosp Care Lvl 2 Diagnoses Chest pain R07.9 Weakness R53.1 CKD (chronic kidney disease) stage 4, GFR 15-29 ml/min N18.4 Morbid obesity E66.01 Type 2 diabetes mellitus E11.9 DVT prophylaxis Z29.9 Chronic respiratory failure J96.10 Respiratory failure complication: unspecified whether with hypoxia or hypercapnia HTN (hypertension) I10 Hypoventilation associated with obesity E66.2 Chronic diastolic congestive heart failure I50.32 Cor pulmonale I27.81 Coronary artery disease I25.10 (1) Chronic respiratory failure Respiratory failure complication: unspecified whether with hypoxia or hypercapnia Qualified Code(s): J96.10 - Chronic respiratory failure, unspecified whether with hypoxia or hypercapnia
[2022-07-25] MEDS ORDERED: ENOXAPARIN INJ 30 MG/0.3 ML SYR SQ SCH (21:00)
[2022-07-25] MEDS: ATORVASTATIN 40 MG TAB PO SCH (21:08)
[2022-07-25] MEDS: ACETAMINOPHEN 500 MG TAB PO SCH (21:09)
[2022-07-25] MEDS: MONTELUKAST SODIUM 10 MG TABLET PO SCH (21:10)
[2022-07-26] MEDS: LEVOTHYROXINE SODIUM 200 MCG TABLET PO SCH (06:32)
[2022-07-26] MEDS: Albuterol HFA 8 GM Inhaler (Combivent Respimat P&T Subs) INH SCH ×4 (07:41→19:20)
[2022-07-26] MEDS: Ipratropium HFA Inhaler (Combivent Respimat P&T Subs) INH SCH ×4 (07:41→19:20)
[2022-07-26 07:47] LABS: Estimated Average Glucose 209 mg/dl; Hemoglobin A1C 8.9 % (4.5-5.6)
[2022-07-26] MEDS: METOPROLOL TARTRATE 25 MG TAB PO SCH ×2 (07:52→20:33)
[2022-07-26] MEDS: DOCUSATE SODIUM 100 MG CAP PO SCH ×2 (07:52→20:32)
[2022-07-26] MEDS: POTASSIUM CHLORIDE CRTAB 20 MEQ TABCR PO SCH ×2 (07:52→20:31)
[2022-07-26] MEDS: ASPIRIN 81 MG ECTAB PO SCH (07:53)
[2022-07-26] MEDS: ISOSORBIDE MONO EXTENDED REL 60 MG TABCR PO SCH (07:53)
[2022-07-26] MEDS: lisinopril 2.5 MG TAB PO SCH (07:53)
[2022-07-26] MEDS: ADVANCED PROBIOTIC 1250 MG CAPSULE PO SCH (07:53)
[2022-07-26] MEDS: MULTIVITAMIN TAB PO SCH (07:53)
[2022-07-26] MEDS: buPROPion SR 100 MG TABCR PO SCH ×2 (07:53→20:32)
[2022-07-26] MEDS: PANTOprazole 40 MG TAB PO SCH (07:54)
[2022-07-26] MEDS: FOLIC ACID 1 MG TAB PO SCH (07:54)
[2022-07-26] MEDS: TORSEMIDE 10 MG TAB PO SCH ×2 (07:54→13:54)
[2022-07-26] MEDS: TOPIRAMATE 100 MG TAB PO SCH ×2 (07:54→20:31)
[2022-07-26] MEDS: SPIRONOLACTONE 25 MG TAB PO SCH (07:54)
[2022-07-26 07:56] LABS: Creatinine Clr Calc Pharmacy 52.2 ml/min; Est GFR (African American) 43.7 ml/min; Est GFR (Non-African American) 37.7 ml/min
[2022-07-26] MEDS: INSULIN ASPART PER UNIT SC SCH ×4 (08:15→20:38)
[2022-07-26] MEDS: LANTUS PER UNIT CHARGE SQ SCH ×2 (08:15→17:09)
[2022-07-26] MEDS: DICLOFENAC SOD 1% GEL 100 GM TUBE EXT SCH ×3 (13:54→20:31)
--- NOTE | 2022-07-26 14:57 | Hospitalist Progress Note ---
Date of Service July 26, 2022 Assessment & Plan (1) Chest pain: Plan: Echo Remains pending No chest pain today No EKG findings consistent with ischemia. High-sensitivity troponin 7.5, seven-point No shortness of breath? Mucous plug versus anxiety with initial episode Patient doing well on medical surgical, pending SNF (2) Weakness: Plan: PT/OT eval and treat, current goal subacute rehab at SNF (3) CKD (chronic kidney disease) stage 4, GFR 15-29 ml/min: Plan: Creatinine pretty stablefollow periodically (4) Morbid obesity: Plan: An unfortunate root cause of much of her comorbidities (5) Type 2 diabetes mellitus: Plan: Check an A1c, insulin management, pharmacy glycemic consult Empagliflozin held (6) DVT prophylaxis: Plan: Lovenox (7) Chronic respiratory failure: Plan: Stable. Probably predominantly OHS mediated (8) HTN (hypertension): Plan: Home meds Blood pressure has been acceptable (9) Hypoventilation associated with obesity: Plan: Tracheostomy, clear, patient doing well (10) Chronic diastolic congestive heart failure: Plan: Continued on torsemide, spironolactone, metoprolol, lisinopril, isosorbide, atorvastatin, aspirin (11) Cor pulmonale: Plan: Home meds (12) Coronary artery disease: Plan: Home meds/further work-up as above noted Plan DVT prophylaxis with Lovenox Admission and Anticipated Discharge Date Admission Date: July 25, 2022 Subjective Seen the bedside this morning. No acute distress. Feels she is breathing comfortably and near her normal baseline but still overall weak. Denies chest pain, chest pressure, shortness of breath, difficulty breathing, lightheadedness, dizziness. Is agreeable to rehab/SNF. No other questions at bedside. Physical Exam Physical Exam: General: A&Ox3. NAD. Cooperative. HEENT: Trach clear Pulm: CTAB A&P. -wheezes, -rales, -rhonchi. Symmetrical chest rise. No increase in work of breathing. No respiratory distress. Cardiac: RRR, -mrg. Radial pulses intact and symmetrical. Abdominal: Nontender, nondistended, soft. BS present. Results & Data Results & Data ([facility]) Vital Signs (Past 12 Hours) Vital Signs Temp Pulse Resp BP Pulse Ox O2 Del Method 07/26/22 11:24 73 16 97 Room Air 07/26/22 07:25 74 16 96 Room Air 07/26/22 10:30 Room Air 07/26/22 07:22 36.7 C 74 20 119/64 95 Room Air PG Care Time/CCT Total # of Minutes Spent Total Time Spent with Patient: Total time spent is greater than 50% in coordination of care (as documented) at patient's floor/unit and/or counseling patient: Coding Level of Care Code 96247 Subseq Hosp Care Lvl 1 Diagnoses Chest pain R07.9 Weakness R53.1 CKD (chronic kidney disease) stage 4, GFR 15-29 ml/min N18.4 Morbid obesity E66.01 Type 2 diabetes mellitus E11.9 DVT prophylaxis Z29.9 Chronic respiratory failure J96.10 Respiratory failure complication: unspecified whether with hypoxia or hypercapnia HTN (hypertension) I10 Hypoventilation associated with obesity E66.2 Chronic diastolic congestive heart failure I50.32 Cor pulmonale I27.81 Coronary artery disease I25.10 (1) Chronic respiratory failure Respiratory failure complication: unspecified whether with hypoxia or hypercapnia Qualified Code(s): J96.10 - Chronic respiratory failure, unspecified whether with hypoxia or hypercapnia
[2022-07-26] MEDS: ENOXAPARIN INJ 40 MG/0.4 ML SYR SQ SCH (20:31)
[2022-07-26] MEDS: ACETAMINOPHEN 500 MG TAB PO SCH (20:32)
[2022-07-26] MEDS: ATORVASTATIN 40 MG TAB PO SCH (20:32)
[2022-07-26] MEDS: MONTELUKAST SODIUM 10 MG TABLET PO SCH (20:32)
[2022-07-27] MEDS: LEVOTHYROXINE SODIUM 200 MCG TABLET PO SCH (05:27)
[2022-07-27] MEDS: Ipratropium HFA Inhaler (Combivent Respimat P&T Subs) INH SCH ×4 (07:28→19:24)
[2022-07-27] MEDS: Albuterol HFA 8 GM Inhaler (Combivent Respimat P&T Subs) INH SCH ×4 (07:28→19:24)
[2022-07-27] MEDS: ASPIRIN 81 MG ECTAB PO SCH (07:59)
[2022-07-27] MEDS: TORSEMIDE 10 MG TAB PO SCH ×2 (07:59→13:52)
[2022-07-27] MEDS: buPROPion SR 100 MG TABCR PO SCH ×2 (08:00→20:00)
[2022-07-27] MEDS: DICLOFENAC SOD 1% GEL 100 GM TUBE EXT SCH ×4 (08:01→19:53)
[2022-07-27] MEDS: DOCUSATE SODIUM 100 MG CAP PO SCH ×2 (08:01→19:54)
[2022-07-27] MEDS: ADVANCED PROBIOTIC 1250 MG CAPSULE PO SCH (08:02)
[2022-07-27] MEDS: FOLIC ACID 1 MG TAB PO SCH (08:02)
[2022-07-27] MEDS: ISOSORBIDE MONO EXTENDED REL 60 MG TABCR PO SCH (08:02)
[2022-07-27] MEDS: lisinopril 2.5 MG TAB PO SCH (08:03)
[2022-07-27] MEDS: METOPROLOL TARTRATE 25 MG TAB PO SCH ×2 (08:04→19:56)
[2022-07-27] MEDS: PANTOprazole 40 MG TAB PO SCH (08:05)
[2022-07-27] MEDS: POTASSIUM CHLORIDE CRTAB 20 MEQ TABCR PO SCH ×2 (08:05→19:55)
[2022-07-27] MEDS: MULTIVITAMIN TAB PO SCH (08:05)
[2022-07-27] MEDS: SPIRONOLACTONE 25 MG TAB PO SCH (08:06)
[2022-07-27] MEDS: TOPIRAMATE 100 MG TAB PO SCH ×2 (08:07→19:55)
[2022-07-27] MEDS: LANTUS PER UNIT CHARGE SQ SCH ×2 (08:15→20:40)
[2022-07-27] MEDS: INSULIN ASPART PER UNIT SC SCH ×4 (08:15→20:40)
--- NOTE | 2022-07-27 09:58 | Hospitalist Progress Note ---
Date of Service July 27, 2022 Assessment & Plan (1) Chest pain: Plan: Chest pain-free, of note patient with substantial pain relief using Voltaren and pain was reproducible on palpation yesterday No EKG findings consistent with ischemia. High-sensitivity troponin 7.5, stable No shortness of breath? Mucous plug versus anxiety with initial episode Patient doing well on medical surgical, pending SNF (2) Weakness: Plan: PT/OT eval and treat, current goal subacute rehab at SNF (3) CKD (chronic kidney disease) stage 4, GFR 15-29 ml/min: Plan: Creatinine pretty stablefollow periodically (4) Morbid obesity: Plan: An unfortunate root cause of much of her comorbidities (5) Type 2 diabetes mellitus: Plan: Check an A1c, insulin management, pharmacy glycemic consult Empagliflozin held (6) DVT prophylaxis: Plan: Lovenox (7) Chronic respiratory failure: Plan: Stable. Probably predominantly OHS mediated (8) HTN (hypertension): Plan: Home meds Blood pressure has been acceptable (9) Hypoventilation associated with obesity: Plan: Tracheostomy, clear, patient doing well (10) Chronic diastolic congestive heart failure: Plan: Continued on torsemide, spironolactone, metoprolol, lisinopril, isosorbide, atorvastatin, aspirin (11) Cor pulmonale: Plan: Home meds (12) Coronary artery disease: Plan: Home meds/further work-up as above noted Plan DVT prophylaxis with Lovenox Admission and Anticipated Discharge Date Admission Date: July 25, 2022 Subjective Seen at bedside, patient feels much better than previously. No shortness of breath, difficulty breathing, lightheadedness, dizziness, chest pain, chest pressure, fever, chills, sweats. Is eagerly awaiting placement, no acute concerns at bedside. No change from yesterday. She notes that the Voltaren gave her significant benefit to both her chest and knee pain Review of Systems Review of Systems: All systems reviewed & are unremarkable except as noted in Subjective Physical Exam Physical Exam: General: A&Ox3. NAD. Cooperative. HEENT: Trach clear Pulm: CTAB A&P. -wheezes, -rales, -rhonchi. Symmetrical chest rise. No increase in work of breathing. No respiratory distress. Cardiac: RRR, -mrg. Radial pulses intact and symmetrical. Abdominal: Nontender, nondistended, soft. BS present. Results & Data Results & Data ([facility]) Vital Signs (Past 12 Hours) Vital Signs Temp Pulse Resp BP Pulse Ox O2 Del Method 07/27/22 08:00 Room Air 07/27/22 07:53 36.7 C 71 18 111/70 93 07/27/22 07:36 71 18 95 Room Air 07/26/22 22:44 36.9 C 69 20 99/52 L 94 Room Air PG Care Time/CCT Total # of Minutes Spent Total Time Spent with Patient: Total time spent is greater than 50% in coordination of care (as documented) at patient's floor/unit and/or counseling patient: Coding Level of Care Code 07215 Subseq Hosp Care Lvl 2 Diagnoses Chest pain R07.9 Weakness R53.1 CKD (chronic kidney disease) stage 4, GFR 15-29 ml/min N18.4 Morbid obesity E66.01 Type 2 diabetes mellitus E11.9 DVT prophylaxis Z29.9 Chronic respiratory failure J96.10 Respiratory failure complication: unspecified whether with hypoxia or hypercapnia HTN (hypertension) I10 Hypoventilation associated with obesity E66.2 Chronic diastolic congestive heart failure I50.32 Cor pulmonale I27.81 Coronary artery disease I25.10 (1) Chronic respiratory failure Respiratory failure complication: unspecified whether with hypoxia or hypercapnia Qualified Code(s): J96.10 - Chronic respiratory failure, unspecified whether with hypoxia or hypercapnia
[2022-07-27] MEDS: ACETAMINOPHEN 325 MG TAB PO PRN (10:32)
--- NOTE | 2022-07-27 12:12 | Pharmacy Report ---
Pharmacy Glycemic Short Note 2 - Date of Service July 27, 2022 - Glycemic Short BSG Results (Last 24 hours): 07/26/22 07/26/22 07/27/22 16:09 20:22 07:08 POC Glucose 232 H 140 H 169 H 07/27/22 11:33 POC Glucose 190 H OUTPATIENT ANTIDIABETIC REGIMEN: * Jardiance 25mg PO daily * Patient on insulin pump in the past (Basal rate 6 units/hr, bolus with 50 units TID meals) * A1c 8.5% 03/24/22 ASSESSMENT: 07/27 * BSGs [phone] yesterday into today. Lantus dose titrated to 40 units BID starting yesterday evening. Fasting this AM 169mg/dL after receiving 70 units of basal insulin yesterday. Received 71 units of bolus insulin (total 141 units 07/26). Novolog parameters were tightened to 8/2.5 last evening. * Stressors stable, tolerating diet. * Continue with Lantus 40units BID for today and tightened Novolog parameters. 07/25 * 67 year old female admitted w/ CP and SOB, morbid obesity, only on PO med for DM, but was previously on high dose insulin via pump. * Basal bolus insulin started yesterday, continue and titrate to goal. PLAN FOR INPATIENT GLYCEMIC CONTROL: * Hold outpatient oral diabetes medications * Basal insulin * Lantus 40 units SQ BID * Bolus insulin * NovoLog per scale ACHS or Q6hrs while NPO * Goal Range: Low 110 mg/dL - High 140 mg/dL * Correction Factor: 8 mg/dL/unit * Nutritional / Prandial insulin per carb ratio of 1 unit per 2.5 grams CHO consumed
[2022-07-27] MEDS: ATORVASTATIN 40 MG TAB PO SCH (19:53)
[2022-07-27] MEDS: ACETAMINOPHEN 500 MG TAB PO SCH (19:53)
[2022-07-27] MEDS: MONTELUKAST SODIUM 10 MG TABLET PO SCH (19:56)
[2022-07-27] MEDS: ENOXAPARIN INJ 40 MG/0.4 ML SYR SQ SCH (22:37)
[2022-07-28] MEDS: ACETAMINOPHEN 325 MG TAB PO PRN ×3 (03:17→14:08)
[2022-07-28] MEDS: LEVOTHYROXINE SODIUM 200 MCG TABLET PO SCH (05:47)
[2022-07-28 06:13] LABS: Est GFR (African American) 37.7 ml/min; Est GFR (Non-African American) 32.5 ml/min
[2022-07-28] MEDS: Ipratropium HFA Inhaler (Combivent Respimat P&T Subs) INH SCH ×4 (07:15→19:32)
[2022-07-28] MEDS: Albuterol HFA 8 GM Inhaler (Combivent Respimat P&T Subs) INH SCH ×4 (07:15→19:32)
[2022-07-28] MEDS: TORSEMIDE 10 MG TAB PO SCH ×2 (08:02→14:09)
[2022-07-28] MEDS: FOLIC ACID 1 MG TAB PO SCH (08:02)
[2022-07-28] MEDS: ADVANCED PROBIOTIC 1250 MG CAPSULE PO SCH (08:03)
[2022-07-28] MEDS: lisinopril 2.5 MG TAB PO SCH (08:03)
[2022-07-28] MEDS: ISOSORBIDE MONO EXTENDED REL 60 MG TABCR PO SCH (08:03)
[2022-07-28] MEDS: MULTIVITAMIN TAB PO SCH (08:03)
[2022-07-28] MEDS: ASPIRIN 81 MG ECTAB PO SCH (08:03)
[2022-07-28] MEDS: METOPROLOL TARTRATE 25 MG TAB PO SCH ×2 (08:04→20:46)
[2022-07-28] MEDS: buPROPion SR 100 MG TABCR PO SCH ×2 (08:04→20:47)
[2022-07-28] MEDS: POTASSIUM CHLORIDE CRTAB 20 MEQ TABCR PO SCH ×2 (08:05→20:57)
[2022-07-28] MEDS: DICLOFENAC SOD 1% GEL 100 GM TUBE EXT SCH ×4 (08:05→20:48)
[2022-07-28] MEDS: TOPIRAMATE 100 MG TAB PO SCH ×2 (08:05→20:47)
[2022-07-28] MEDS: DOCUSATE SODIUM 100 MG CAP PO SCH ×2 (08:05→20:58)
[2022-07-28] MEDS: LANTUS PER UNIT CHARGE SQ SCH ×2 (08:19→20:55)
[2022-07-28] MEDS: INSULIN ASPART PER UNIT SC SCH ×4 (08:20→20:55)
[2022-07-28] MEDS: PANTOprazole 40 MG TAB PO SCH (09:03)
[2022-07-28] MEDS: SPIRONOLACTONE 25 MG TAB PO SCH (09:03)
--- NOTE | 2022-07-28 09:35 | Hospitalist Progress Note ---
Date of Service July 28, 2022 Assessment & Plan (1) Chest pain: Plan: Chest pain-free, of note patient with substantial pain relief using Voltaren and pain was reproducible on palpation yesterday No EKG findings consistent with ischemia. High-sensitivity troponin 7.5, stable No shortness of breath? Mucous plug versus anxiety with initial episode Patient doing well on medical surgical, pending SNF (2) Weakness: Plan: PT/OT eval and treat, current goal subacute rehab at SNF (3) CKD (chronic kidney disease) stage 4, GFR 15-29 ml/min: Plan: Creatinine pretty stablefollow periodically (4) Morbid obesity: Plan: An unfortunate root cause of much of her comorbidities (5) Type 2 diabetes mellitus: Plan: A1c 8.9, insulin management, pharmacy glycemic consult Empagliflozin held (6) DVT prophylaxis: Plan: Lovenox (7) Chronic respiratory failure: Plan: Stable. Probably predominantly OHS mediated (8) HTN (hypertension): Plan: Home meds Blood pressure has been acceptable (9) Hypoventilation associated with obesity: Plan: Tracheostomy, clear, patient doing well (10) Chronic diastolic congestive heart failure: Plan: Continued on torsemide, spironolactone, metoprolol, lisinopril, isosorbide, atorvastatin, aspirin (11) Cor pulmonale: Plan: Home meds (12) Coronary artery disease: Plan: Home meds/further work-up as above noted Plan DVT prophylaxis with Lovenox Admission and Anticipated Discharge Date Admission Date: July 25, 2022 Subjective pt has not real acute complaints, requests to increase tylenol for pain after P T. Review of Systems Review of Systems: Mild distress and fatigue no headache, no visual changes no speech or swallowing issues as speak by occluding her chronic tracheostomy no chest pain, pressure or palpitations no shortness of breath, cough or wheezes no abdominal pain, nausea or vomiting, diarrhea or constipation no dysuria, hematuria or frequency no focal joint pain or swelling no back pain, CVA tenderness or radicular pain no bruising, bleeding or rashes no focal signs of weakness or numbness or altered sensation no complaints of anxiety or depression.. Physical Exam Physical Exam: The patient appeared well nourished and normally developed. Patient is morbidly obese with a BMI of 56 Vital signs as documented. Head exam is normocephalic atraumatic Neck is without JVD, thyromegaly, or carotid bruits. Tracheostomy is in place patient closes to speak Lungs are clear to auscultation, no focal loss of breath sounds coarse breath sounds are heard Cardiac exam, Rhythm is regular.. No murmurs, rubs or gallops. Abdominal exam reveals normal bowel sounds, soft non tender, no masses Extremities are nonedematous and both pedal pulses are present Neurologic exam is alert and oriented, no focal loss of strength or sensation she does have some weakness to her lower extremities Skin is without bruises or rashes Psychologically is without concerns for anxiety or depression.. Results & Data Results & Data ([facility]) Vital Signs (Past 12 Hours) Vital Signs Temp Pulse Resp BP Pulse Ox O2 Del Method 07/28/22 07:51 97.9 F 71 20 134/73 96 Room Air 07/28/22 07:22 76 18 95 Room Air 07/27/22 22:07 98.1 F 71 20 110/69 94 Room Air PG Care Time/CCT Total # of Minutes Spent Total Time Spent with Patient: Total time spent is greater than 50% in coordination of care (as documented) at patient's floor/unit and/or counseling patient: Coding Level of Care Code 54464 Subseq Hosp Care Lvl 2 Diagnoses Chest pain R07.9 Weakness R53.1 CKD (chronic kidney disease) stage 4, GFR 15-29 ml/min N18.4 Morbid obesity E66.01 Type 2 diabetes mellitus E11.9 DVT prophylaxis Z29.9 Chronic respiratory failure J96.10 Respiratory failure complication: unspecified whether with hypoxia or hypercapnia HTN (hypertension) I10 Hypoventilation associated with obesity E66.2 Chronic diastolic congestive heart failure I50.32 Cor pulmonale I27.81 Coronary artery disease I25.10 (1) Chronic respiratory failure Respiratory failure complication: unspecified whether with hypoxia or hypercapnia Qualified Code(s): J96.10 - Chronic respiratory failure, unspecified whether with hypoxia or hypercapnia
--- NOTE | 2022-07-28 15:18 | Pharmacy Report ---
Pharmacy Glycemic Short Note 2 - Date of Service July 28, 2022 - Glycemic Short BSG Results (Last 24 hours): 07/27/22 07/27/22 07/28/22 16:10 20:30 08:12 POC Glucose 162 H 150 H 140 H 07/28/22 11:52 POC Glucose 233 H OUTPATIENT ANTIDIABETIC REGIMEN: * Jardiance 25mg PO daily * Patient on insulin pump in the past (Basal rate 6 units/hr, bolus with 50 units TID meals) * A1c 8.5% 03/24/22 ASSESSMENT: 07/28: * Patient received total 146 units of insulin yesterday: 80 units basal + 66 units bolus * BSGs yesterday were [phone] mg/dl. Fasting BSG today was 140 mg/dl. * Continued basal insulin 40 units BID today since fasting BSG has been trending down on this dose. * Pre-lunch BSG continues to be the most elevated out of the day. Will consider tightening up just the AM Novolog parameters further tomorrow to prevent this. 07/27 * BSGs [phone] yesterday into today. Lantus dose titrated to 40 units BID starting yesterday evening. Fasting this AM 169mg/dL after receiving 70 units of basal insulin yesterday. Received 71 units of bolus insulin (total 141 units 07/26). Novolog parameters were tightened to 8/2.5 last evening. * Stressors stable, tolerating diet. * Continue with Lantus 40units BID for today and tightened Novolog parameters. 07/25 * 67 year old female admitted w/ CP and SOB, morbid obesity, only on PO med for DM, but was previously on high dose insulin via pump. * Basal bolus insulin started yesterday, continue and titrate to goal. PLAN FOR INPATIENT GLYCEMIC CONTROL: * Hold outpatient oral diabetes medications * Basal insulin * Lantus 40 units SQ BID * Bolus insulin * NovoLog per scale ACHS or Q6hrs while NPO * Goal Range: Low 110 mg/dL - High 140 mg/dL * Correction Factor: 8 mg/dL/unit * Nutritional / Prandial insulin per carb ratio of 1 unit per 2.5 grams CHO consumed
[2022-07-28] MEDS: ENOXAPARIN INJ 40 MG/0.4 ML SYR SQ SCH (20:45)
[2022-07-28] MEDS: ATORVASTATIN 40 MG TAB PO SCH (20:46)
[2022-07-28] MEDS: MONTELUKAST SODIUM 10 MG TABLET PO SCH (20:49)
[2022-07-28] MEDS: ACETAMINOPHEN 500 MG TAB PO SCH (20:57)
[2022-07-29] MEDS: LEVOTHYROXINE SODIUM 200 MCG TABLET PO SCH (05:38)
[2022-07-29] MEDS: TORSEMIDE 10 MG TAB PO SCH ×2 (06:04→15:36)
[2022-07-29] MEDS: Albuterol HFA 8 GM Inhaler (Combivent Respimat P&T Subs) INH SCH ×4 (07:24→19:06)
[2022-07-29] MEDS: Ipratropium HFA Inhaler (Combivent Respimat P&T Subs) INH SCH ×4 (07:24→19:05)
[2022-07-29] MEDS: ASPIRIN 81 MG ECTAB PO SCH (08:01)
[2022-07-29] MEDS: SPIRONOLACTONE 25 MG TAB PO SCH (08:01)
[2022-07-29] MEDS: MULTIVITAMIN TAB PO SCH (08:01)
[2022-07-29] MEDS: lisinopril 2.5 MG TAB PO SCH (08:01)
[2022-07-29] MEDS: buPROPion SR 100 MG TABCR PO SCH ×2 (08:01→21:34)
[2022-07-29] MEDS: FOLIC ACID 1 MG TAB PO SCH (08:01)
[2022-07-29] MEDS: ISOSORBIDE MONO EXTENDED REL 60 MG TABCR PO SCH (08:02)
[2022-07-29] MEDS: ADVANCED PROBIOTIC 1250 MG CAPSULE PO SCH (08:02)
[2022-07-29] MEDS: METOPROLOL TARTRATE 25 MG TAB PO SCH ×2 (08:02→21:31)
[2022-07-29] MEDS: PANTOprazole 40 MG TAB PO SCH (08:02)
[2022-07-29] MEDS: DICLOFENAC SOD 1% GEL 100 GM TUBE EXT SCH ×4 (08:03→21:30)
[2022-07-29] MEDS: TOPIRAMATE 100 MG TAB PO SCH ×2 (08:03→21:34)
[2022-07-29] MEDS: DOCUSATE SODIUM 100 MG CAP PO SCH ×2 (08:05→21:37)
[2022-07-29] MEDS: POTASSIUM CHLORIDE CRTAB 20 MEQ TABCR PO SCH ×2 (08:05→21:38)
[2022-07-29] MEDS: INSULIN ASPART PER UNIT SC SCH ×4 (08:32→21:29)
[2022-07-29] MEDS: LANTUS PER UNIT CHARGE SQ SCH ×2 (08:33→21:29)
[2022-07-29] MEDS: oxyCODONE HCL IR 5 MG TAB (IMMEDIATE RELEASE) PO PRN (12:35)
--- NOTE | 2022-07-29 17:09 | Hospitalist Progress Note ---
Date of Service July 29, 2022 Assessment & Plan (1) Chest pain: Plan: Chest pain-free, of note patient with substantial pain relief using Voltaren and pain was reproducible on palpation yesterday No EKG findings consistent with ischemia. High-sensitivity troponin 7.5, stable No shortness of breath? Mucous plug versus anxiety with initial episode Patient doing well on medical surgical, pending SNF (2) Weakness: Plan: PT/OT eval and treat, current goal subacute rehab at SNF (3) CKD (chronic kidney disease) stage 4, GFR 15-29 ml/min: Plan: Creatinine pretty stablefollow periodically (4) Morbid obesity: Plan: An unfortunate root cause of much of her comorbidities (5) Type 2 diabetes mellitus: Plan: A1c 8.9, insulin management, pharmacy glycemic consult Empagliflozin held (6) DVT prophylaxis: Plan: Lovenox (7) Chronic respiratory failure: Plan: Stable. Probably predominantly OHS mediated (8) HTN (hypertension): Plan: Home meds Blood pressure has been acceptable (9) Hypoventilation associated with obesity: Plan: Tracheostomy, clear, patient doing well (10) Chronic diastolic congestive heart failure: Plan: Continued on torsemide, spironolactone, metoprolol, lisinopril, isosorbide, atorvastatin, aspirin (11) Cor pulmonale: Plan: Home meds (12) Coronary artery disease: Plan: Home meds/further work-up as above noted Plan DVT prophylaxis with Lovenox Admission and Anticipated Discharge Date Admission Date: July 25, 2022 Subjective pt has not real acute complaints, requests to increase tylenol for pain after P T. Review of Systems Review of Systems: Mild distress and fatigue no headache, no visual changes no speech or swallowing issues as speak by occluding her chronic tracheostomy no chest pain, pressure or palpitations no shortness of breath, cough or wheezes no abdominal pain, nausea or vomiting, diarrhea or constipation no dysuria, hematuria or frequency no focal joint pain or swelling no back pain, CVA tenderness or radicular pain no bruising, bleeding or rashes no focal signs of weakness or numbness or altered sensation no complaints of anxiety or depression.. Physical Exam Physical Exam: The patient appeared well nourished and normally developed. Patient is morbidly obese with a BMI of 56 Vital signs as documented. Head exam is normocephalic atraumatic Neck is without JVD, thyromegaly, or carotid bruits. Tracheostomy is in place patient closes to speak Lungs are clear to auscultation, no focal loss of breath sounds coarse breath sounds are heard Cardiac exam, Rhythm is regular.. No murmurs, rubs or gallops. Abdominal exam reveals normal bowel sounds, soft non tender, no masses Extremities are nonedematous and both pedal pulses are present Neurologic exam is alert and oriented, no focal loss of strength or sensation she does have some weakness to her lower extremities Skin is without bruises or rashes Psychologically is without concerns for anxiety or depression.. Results & Data Results & Data ([facility]) Vital Signs (Past 12 Hours) Vital Signs Temp Pulse Resp BP Pulse Ox O2 Del Method 07/29/22 16:30 98.2 F 75 18 121/67 93 Room Air 07/29/22 15:54 74 18 95 Room Air 07/29/22 08:00 Room Air 07/29/22 07:43 97.9 F 62 18 117/69 95 Room Air 07/29/22 07:25 71 18 95 Room Air PG Care Time/CCT Total # of Minutes Spent Total Time Spent with Patient: Total time spent is greater than 50% in coordination of care (as documented) at patient's floor/unit and/or counseling patient: Coding Level of Care Code 16199 Subseq Hosp Care Lvl 2 Diagnoses Chest pain R07.9 Weakness R53.1 CKD (chronic kidney disease) stage 4, GFR 15-29 ml/min N18.4 Morbid obesity E66.01 Type 2 diabetes mellitus E11.9 DVT prophylaxis Z29.9 Chronic respiratory failure J96.10 Respiratory failure complication: unspecified whether with hypoxia or h ypercapnia HTN (hypertension) I10 Hypoventilation associated with obesity E66.2 Chronic diastolic congestive heart failure I50.32 Cor pulmonale I27.81 Coronary artery disease I25.10 (1) Chronic respiratory failure Respiratory failure complication: unspecified whether with hypoxia or hypercapnia Qualified Code(s): J96.10 - Chronic respiratory failure, unspecified whether with hypoxia or hypercapnia
[2022-07-29] MEDS: POLYETHYLENE (MIRALAX) 17 GM PACK PO PRN (17:18)
[2022-07-29] MEDS: ATORVASTATIN 40 MG TAB PO SCH (21:30)
[2022-07-29] MEDS: MONTELUKAST SODIUM 10 MG TABLET PO SCH (21:32)
[2022-07-29] MEDS: ENOXAPARIN INJ 40 MG/0.4 ML SYR SQ SCH (21:32)
[2022-07-30] MEDS: ALUMINUM/MAGNESIUM SUSP 30 ML UDC PO PRN (02:25)
[2022-07-30] MEDS: LEVOTHYROXINE SODIUM 200 MCG TABLET PO SCH (06:08)
[2022-07-30] MEDS: TORSEMIDE 10 MG TAB PO SCH ×2 (06:08→15:24)
[2022-07-30] MEDS: Ipratropium HFA Inhaler (Combivent Respimat P&T Subs) INH SCH ×4 (07:25→19:44)
[2022-07-30] MEDS: Albuterol HFA 8 GM Inhaler (Combivent Respimat P&T Subs) INH SCH ×4 (07:26→19:43)
[2022-07-30] MEDS: MULTIVITAMIN TAB PO SCH (08:07)
[2022-07-30] MEDS: TOPIRAMATE 100 MG TAB PO SCH ×2 (08:07→21:52)
[2022-07-30] MEDS: lisinopril 2.5 MG TAB PO SCH (08:08)
[2022-07-30] MEDS: ISOSORBIDE MONO EXTENDED REL 60 MG TABCR PO SCH (08:08)
[2022-07-30] MEDS: SPIRONOLACTONE 25 MG TAB PO SCH (08:09)
[2022-07-30] MEDS: METOPROLOL TARTRATE 25 MG TAB PO SCH ×2 (08:09→22:08)
[2022-07-30] MEDS: ADVANCED PROBIOTIC 1250 MG CAPSULE PO SCH (08:10)
[2022-07-30] MEDS: ASPIRIN 81 MG ECTAB PO SCH (08:10)
[2022-07-30] MEDS: FOLIC ACID 1 MG TAB PO SCH (08:10)
[2022-07-30] MEDS: PANTOprazole 40 MG TAB PO SCH (08:10)
[2022-07-30] MEDS: buPROPion SR 100 MG TABCR PO SCH ×2 (08:11→21:49)
[2022-07-30] MEDS: POTASSIUM CHLORIDE CRTAB 20 MEQ TABCR PO SCH ×2 (08:18→22:00)
[2022-07-30] MEDS: DOCUSATE SODIUM 100 MG CAP PO SCH ×2 (08:18→22:00)
[2022-07-30] MEDS: DICLOFENAC SOD 1% GEL 100 GM TUBE EXT SCH ×4 (08:18→21:49)
[2022-07-30] MEDS: INSULIN ASPART PER UNIT SC SCH ×4 (09:09→20:59)
[2022-07-30] MEDS: LANTUS PER UNIT CHARGE SQ SCH ×2 (09:09→22:05)
--- NOTE | 2022-07-30 10:05 | Pharmacy Report ---
Pharmacy Glycemic Short Note 2 - Date of Service July 30, 2022 - Glycemic Short BSG Results (Last 24 hours): 07/29/22 07/29/22 07/29/22 11:55 16:51 20:55 POC Glucose 167 H 151 H 138 H 07/30/22 08:17 POC Glucose 173 H OUTPATIENT ANTIDIABETIC REGIMEN: * Jardiance 25mg PO daily * Patient on insulin pump in the past (Basal rate 6 units/hr, bolus with 50 units TID meals) * A1c 8.5% 03/24/22 ASSESSMENT: 07/30: * Patient received total 164 units of insulin yesterday: 80 units basal + 84 bolus * BSGs yesterday were [phone] mg/dl. Fasting BSG today was 173 mg/dl. * Yesterday, the Novolog parameters at breakfast was tightened which helped to prevent the pre-lunch BSG from rising too high. * BSGs have been fairly well controlled on current basal and bolus regimen. No changes today. 07/28: * Patient received total 146 units of insulin yesterday: 80 units basal + 66 units bolus * BSGs yesterday were [phone] mg/dl. Fasting BSG today was 140 mg/dl. * Continued basal insulin 40 units BID today since fasting BSG has been trending down on this dose. * Pre-lunch BSG continues to be the most elevated out of the day. Will consider tightening up just the AM Novolog parameters further tomorrow to prevent this. 07/27 * BSGs [phone] yesterday into today. Lantus dose titrated to 40 units BID starting yesterday evening. Fasting this AM 169mg/dL after receiving 70 units of basal insulin yesterday. Received 71 units of bolus insulin (total 141 units 07/26). Novolog parameters were tightened to 8/2.5 last evening. * Stressors stable, tolerating diet. * Continue with Lantus 40units BID for today and tightened Novolog parameters. 07/25 * 67 year old female admitted w/ CP and SOB, morbid obesity, only on PO med for DM, but was previously on high dose insulin via pump. * Basal bolus insulin started yesterday, continue and titrate to goal. PLAN FOR INPATIENT GLYCEMIC CONTROL: * Hold outpatient oral diabetes medications * Basal insulin * Lantus 40 units SQ BID * Bolus insulin * NovoLog per scale ACHS or Q6hrs while NPO * Goal Range: Low 110 mg/dL - High 140 mg/dL * Correction Factor: 6 mg/dL/unit at breakfast and 8 mg/dl/units at lunch, dinner and HS * Nutritional / Prandial insulin per carb ratio of 1 unit per 2 grams CHO consumed at breakfast and 1 unit per 2.5 grams CHO consumed at lunch, dinner and HS
[2022-07-30] MEDS: oxyCODONE HCL IR 5 MG TAB (IMMEDIATE RELEASE) PO PRN ×2 (13:01→22:00)
--- NOTE | 2022-07-30 17:49 | Hospitalist Progress Note ---
Date of Service July 30, 2022 Assessment & Plan (1) Chest pain: Plan: Chest pain-free, of note patient with substantial pain relief using Voltaren and pain was reproducible on palpation yesterday No EKG findings consistent with ischemia. High-sensitivity troponin 7.5, stable No shortness of breath, Mucous plug versus anxiety with initial episode Patient doing well on medical surgical, pending SNF (2) Weakness: Plan: PT/OT eval and treat, current goal subacute rehab at SNF (3) CKD (chronic kidney disease) stage 4, GFR 15-29 ml/min: Plan: Creatinine stable (4) Morbid obesity: Plan: An unfortunate root cause of much of her comorbidities (5) Type 2 diabetes mellitus: Plan: A1c 8.9, insulin management, pharmacy glycemic consult Empagliflozin held (6) DVT prophylaxis: Plan: Lovenox (7) Chronic respiratory failure: Plan: Stable. Probably predominantly OHS mediated (8) HTN (hypertension): Plan: Home meds Blood pressure has been acceptable (9) Hypoventilation associated with obesity: Plan: Tracheostomy, clear, patient doing well (10) Chronic diastolic congestive heart failure: Plan: Continued on torsemide, spironolactone, metoprolol, lisinopril, isosorbide, atorvastatin, aspirin (11) Cor pulmonale: Plan: Home meds (12) Coronary artery disease: Plan: Home meds stable Plan DVT prophylaxis with Lovenox Admission and Anticipated Discharge Date Admission Date: July 25, 2022 Subjective pt has not real acute complaints, no new complaints or problems is awaiting placement Review of Systems Review of Systems: Mild distress and fatigue no headache, no visual changes no speech or swallowing issues as speak by occluding her chronic tracheostomy no chest pain, pressure or palpitations no shortness of breath, cough or wheezes no abdominal pain, nausea or vomiting, diarrhea or constipation no dysuria, hematuria or frequency no focal joint pain or swelling no back pain, CVA tenderness or radicular pain no bruising, bleeding or rashes no focal signs of weakness or numbness or altered sensation no complaints of anxiety or depression.. Physical Exam Physical Exam: The patient appeared well nourished and normally developed. Patient is morbidly obese with a BMI of 56 Vital signs as documented. Head exam is normocephalic atraumatic Neck is without JVD, thyromegaly, or carotid bruits. Tracheostomy is in place patient closes to speak Lungs are clear to auscultation, no focal loss of breath sounds coarse breath sounds are heard Cardiac exam, Rhythm is regular.. No murmurs, rubs or gallops. Abdominal exam reveals normal bowel sounds, soft non tender, no masses Extremities are nonedematous and both pedal pulses are present Neurologic exam is alert and oriented, no focal loss of strength or sensation she does have some weakness to her lower extremities Skin is without bruises or rashes Psychologically is without concerns for anxiety or depression.. Results & Data Results & Data ([facility]) Vital Signs (Past 12 Hours) Vital Signs Temp Pulse Resp BP Pulse Ox O2 Del Method FiO2 07/30/22 15:11 77 15 94 Room Air 21 07/30/22 14:46 98.1 F 79 19 109/64 94 Room Air 07/30/22 08:13 98.2 F 68 16 151/73 H 96 Room Air 07/30/22 07:26 80 18 96 Room Air PG Care Time/CCT Total # of Minutes Spent Total Time Spent with Patient: Total time spent is greater than 50% in coordination of care (as documented) at patient's floor/unit and/or counseling patient: Coding Level of Care Code 59678 Subseq Hosp Care Lvl 2 Diagnoses Chest pain R07.9 Weakness R53.1 CKD (chronic kidney disease) stage 4, GFR 15-29 ml/min N18.4 Morbid obesity E66.01 Type 2 diabetes mellitus E11.9 DVT prophylaxis Z29.9 Chronic respiratory failure J96.10 Respiratory failure complication: unspecified whether with hypoxia or hypercapnia HTN (hypertension) I10 Hypoventilation associated with obesity E66.2 Chronic diastolic congestive heart failure I50.32 Cor pulmonale I27.81 Coronary artery disease I25.10 (1) Chronic respiratory failure Respiratory failure complication: unspecified whether with hypoxia or hypercapnia Qualified Code(s): J96.10 - Chronic respiratory failure, unspecified whether with hypoxia or hypercapnia
[2022-07-30] MEDS: ATORVASTATIN 40 MG TAB PO SCH (21:48)
[2022-07-30] MEDS: ENOXAPARIN INJ 40 MG/0.4 ML SYR SQ SCH (21:50)
[2022-07-30] MEDS: MONTELUKAST SODIUM 10 MG TABLET PO SCH (21:52)
[2022-07-31] MEDS: TORSEMIDE 10 MG TAB PO SCH ×2 (06:01→13:27)
[2022-07-31] MEDS: LEVOTHYROXINE SODIUM 200 MCG TABLET PO SCH (06:01)
[2022-07-31] MEDS: Ipratropium HFA Inhaler (Combivent Respimat P&T Subs) INH SCH ×4 (07:14→19:43)
[2022-07-31] MEDS: Albuterol HFA 8 GM Inhaler (Combivent Respimat P&T Subs) INH SCH ×4 (07:15→19:44)
[2022-07-31] MEDS: buPROPion SR 100 MG TABCR PO SCH ×2 (08:20→21:20)
[2022-07-31] MEDS: SPIRONOLACTONE 25 MG TAB PO SCH (08:20)
[2022-07-31] MEDS: TOPIRAMATE 100 MG TAB PO SCH ×2 (08:20→21:24)
[2022-07-31] MEDS: FOLIC ACID 1 MG TAB PO SCH (08:20)
[2022-07-31] MEDS: MULTIVITAMIN TAB PO SCH (08:20)
[2022-07-31] MEDS: lisinopril 2.5 MG TAB PO SCH (08:21)
[2022-07-31] MEDS: ASPIRIN 81 MG ECTAB PO SCH (08:21)
[2022-07-31] MEDS: PANTOprazole 40 MG TAB PO SCH (08:21)
[2022-07-31] MEDS: ISOSORBIDE MONO EXTENDED REL 60 MG TABCR PO SCH (08:21)
[2022-07-31] MEDS: DICLOFENAC SOD 1% GEL 100 GM TUBE EXT SCH ×4 (08:21→21:20)
[2022-07-31] MEDS: ADVANCED PROBIOTIC 1250 MG CAPSULE PO SCH (08:21)
[2022-07-31] MEDS: METOPROLOL TARTRATE 25 MG TAB PO SCH ×2 (08:21→21:22)
[2022-07-31] MEDS: POTASSIUM CHLORIDE CRTAB 20 MEQ TABCR PO SCH ×2 (08:24→21:30)
[2022-07-31] MEDS: DOCUSATE SODIUM 100 MG CAP PO SCH ×2 (08:24→21:30)
[2022-07-31 08:32] LABS: Creatinine Clr Calc Pharmacy 44.6 ml/min; Est GFR (African American) 36.3 ml/min; Est GFR (Non-African American) 31.3 ml/min
[2022-07-31] MEDS: LANTUS PER UNIT CHARGE SQ SCH ×2 (09:10→21:29)
[2022-07-31] MEDS: INSULIN ASPART PER UNIT SC SCH ×4 (09:10→21:21)
[2022-07-31] MEDS: POLYETHYLENE (MIRALAX) 17 GM PACK PO PRN (09:38)
[2022-07-31] MEDS: oxyCODONE HCL IR 5 MG TAB (IMMEDIATE RELEASE) PO PRN ×2 (10:47→21:29)
--- NOTE | 2022-07-31 17:40 | Hospitalist Progress Note ---
Date of Service July 31, 2022 Assessment & Plan (1) Chest pain: Plan: none additional remains Chest pain-free, of note patient with substantial pain relief using Voltaren and pain was reproducible on palpation yesterday No EKG findings consistent with ischemia. High-sensitivity troponin 7.5, stable No shortness of breath, Mucous plug versus anxiety with initial episode Patient doing well on medical surgical, pending SNF (2) Weakness: Plan: PT/OT eval and treat, current goal subacute rehab at SNF some arthritic right knee pain, using ice to help reduce (3) CKD (chronic kidney disease) stage 4, GFR 15-29 ml/min: Plan: Creatinine stable (4) Morbid obesity: Plan: An unfortunate root cause of much of her comorbidities (5) Type 2 diabetes mellitus: Plan: A1c 8.9, insulin management, pharmacy glycemic consult Empagliflozin held (6) DVT prophylaxis: Plan: Lovenox (7) Chronic respiratory failure: Plan: Stable. Probably predominantly OHS mediated (8) HTN (hypertension): Plan: Home meds Blood pressure has been acceptable (9) Hypoventilation associated with obesity: Plan: Tracheostomy, clear, patient doing well (10) Chronic diastolic congestive heart failure: Plan: Continued on torsemide, spironolactone, metoprolol, lisinopril, isosorbide, atorvastatin, aspirin (11) Cor pulmonale: Plan: Home meds (12) Coronary artery disease: Plan: Home meds stable Plan DVT prophylaxis with Lovenox Admission and Anticipated Discharge Date Admission Date: July 25, 2022 Subjective pt has some right knee pain worsened with new mobility and PT, otherwise no new complaints or problems is awaiting placement Review of Systems Review of Systems: Mild distress and fatigue no headache, no visual changes no speech or swallowing issues as speak by occluding her chronic tracheostomy no chest pain, pressure or palpitations no shortness of breath, cough or wheezes no abdominal pain, nausea or vomiting, diarrhea or constipation no dysuria, hematuria or frequency no focal joint pain or swelling no back pain, CVA tenderness or radicular pain no bruising, bleeding or rashes no focal signs of weakness or numbness or altered sensation no complaints of anxiety or depression.. Physical Exam Physical Exam: The patient appeared well nourished and normally developed. Patient is morbidly obese with a BMI of 56 Vital signs as documented. Head exam is normocephalic atraumatic Neck is without JVD, thyromegaly, or carotid bruits. Tracheostomy is in place patient closes to speak Lungs are clear to auscultation, no focal loss of breath sounds coarse breath sounds are heard Cardiac exam, Rhythm is regular.. No murmurs, rubs or gallops. Abdominal exam reveals normal bowel sounds, soft non tender, no masses Extremities are nonedematous and both pedal pulses are present, right knee is not hot warm or reddened, medial pain to exam Neurologic exam is alert and oriented, no focal loss of strength or sensation she does have some weakness to her lower extremities Skin is without bruises or rashes Psychologically is without concerns for anxiety or depression.. Results & Data Results & Data ([facility]) Vital Signs (Past 12 Hours) Vital Signs Temp Pulse Resp BP Pulse Ox O2 Del Method FiO2 07/31/22 09:00 Room Air 07/31/22 16:13 97.9 F 74 16 105/58 L 94 Room Air 07/31/22 15:15 65 18 96 Room Air 21 07/31/22 11:07 76 18 96 Room Air 21 07/31/22 15:03 77 16 94 21 07/31/22 11:08 62 16 96 Room Air 21 07/31/22 08:19 123/71 07/31/22 07:40 97.7 F 68 18 102/59 L 93 Room Air 07/31/22 07:15 66 18 94 Room Air 21 07/31/22 07:16 74 14 94 Room Air 21 PG Care Time/CCT Total # of Minutes Spent Total Time Spent with Patient: Total time spent is greater than 50% in coordination of care (as documented) at patient's floor/unit and/or counseling patient: Coding Level of Care Code 06595 Subseq Hosp Care Lvl 1 Diagnoses Chest pain R07.9 Weakness R53.1 CKD (chronic kidney disease) stage 4, GFR 15-29 ml/min N18.4 Morbid obesity E66.01 Type 2 diabetes mellitus E11.9 DVT prophylaxis Z29.9 Chronic respiratory failure J96.10 Respiratory failure complication: unspecified whether with hypoxia or hypercapnia HTN (hypertension) I10 Hypoventilation associated with obesity E66.2 Chronic diastolic congestive heart failure I50.32 Cor pulmonale I27.81 Coronary artery disease I25.10 (1) Chronic respiratory failure Respiratory failure complication: unspecified whether with hypoxia or hypercapnia Qualified Code(s): J96.10 - Chronic respiratory failure, unspecified whether with hypoxia or hypercapnia
[2022-07-31] MEDS: ATORVASTATIN 40 MG TAB PO SCH (21:19)
[2022-07-31] MEDS: ENOXAPARIN INJ 40 MG/0.4 ML SYR SQ SCH (21:21)
[2022-07-31] MEDS: MONTELUKAST SODIUM 10 MG TABLET PO SCH (21:23)
[2022-07-31] MEDS: ALUMINUM/MAGNESIUM SUSP 30 ML UDC PO PRN (23:31)
[2022-08-01] MEDS: ALUMINUM/MAGNESIUM SUSP 30 ML UDC PO PRN ×3 (03:34→16:46)
[2022-08-01] MEDS: LEVOTHYROXINE SODIUM 200 MCG TABLET PO SCH (06:20)
[2022-08-01] MEDS: TORSEMIDE 10 MG TAB PO SCH ×2 (06:20→14:01)
[2022-08-01] MEDS: Albuterol HFA 8 GM Inhaler (Combivent Respimat P&T Subs) INH SCH ×4 (07:30→19:17)
[2022-08-01] MEDS: Ipratropium HFA Inhaler (Combivent Respimat P&T Subs) INH SCH ×4 (07:30→19:16)
[2022-08-01] MEDS: LANTUS PER UNIT CHARGE SQ SCH (08:49)
[2022-08-01] MEDS: INSULIN ASPART PER UNIT SC SCH ×4 (08:50→20:59)
[2022-08-01] MEDS: PANTOprazole 40 MG TAB PO SCH ×2 (08:51→20:51)
[2022-08-01] MEDS: DOCUSATE SODIUM 100 MG CAP PO SCH ×2 (08:51→21:00)
[2022-08-01] MEDS: POTASSIUM CHLORIDE CRTAB 20 MEQ TABCR PO SCH ×2 (08:51→21:00)
[2022-08-01] MEDS: ISOSORBIDE MONO EXTENDED REL 60 MG TABCR PO SCH (08:52)
[2022-08-01] MEDS: FOLIC ACID 1 MG TAB PO SCH (08:52)
[2022-08-01] MEDS: SPIRONOLACTONE 25 MG TAB PO SCH (08:52)
[2022-08-01] MEDS: TOPIRAMATE 100 MG TAB PO SCH ×2 (08:52→20:51)
[2022-08-01] MEDS: ASPIRIN 81 MG ECTAB PO SCH (08:52)
[2022-08-01] MEDS: ADVANCED PROBIOTIC 1250 MG CAPSULE PO SCH (08:53)
[2022-08-01] MEDS: METOPROLOL TARTRATE 25 MG TAB PO SCH ×2 (08:53→20:49)
[2022-08-01] MEDS: buPROPion SR 100 MG TABCR PO SCH ×2 (08:53→20:48)
[2022-08-01] MEDS: MULTIVITAMIN TAB PO SCH (08:53)
[2022-08-01] MEDS: lisinopril 2.5 MG TAB PO SCH (08:53)
[2022-08-01] MEDS: DICLOFENAC SOD 1% GEL 100 GM TUBE EXT SCH ×4 (08:54→20:48)
--- NOTE | 2022-08-01 09:20 | Pharmacy Report ---
Pharmacy Glycemic Short Note 2 - Date of Service August 01, 2022 - Glycemic Short BSG Results (Last 24 hours): 07/31/22 07/31/22 07/31/22 12:09 17:06 20:16 POC Glucose 153 H 128 H 127 H 08/01/22 08:17 POC Glucose 187 H OUTPATIENT ANTIDIABETIC REGIMEN: * Jardiance 25mg PO daily * Patient on insulin pump in the past (Basal rate 6 units/hr, bolus with 50 units TID meals) A1c 8.5% 03/24/22 ASSESSMENT: 08/01: * BSGs well-controlled throughout the day - will continue current Novolog parameters * Fasting BSGs persistently elevated, 173, 172, and 187 mg/dL over past several days * Increased basal by ~12.5% yesterday, will increase again today 07/30: * Patient received total 164 units of insulin yesterday: 80 units basal + 84 bolus * BSGs yesterday were [phone] mg/dl. Fasting BSG today was 173 mg/dl. * Yesterday, the Novolog parameters at breakfast was tightened which helped to prevent the pre-lunch BSG from rising too high. * BSGs have been fairly well controlled on current basal and bolus regimen. No changes today. 07/28: * Patient received total 146 units of insulin yesterday: 80 units basal + 66 units bolus * BSGs yesterday were [phone] mg/dl. Fasting BSG today was 140 mg/dl. * Continued basal insulin 40 units BID today since fasting BSG has been trending down on this dose. * Pre-lunch BSG continues to be the most elevated out of the day. Will consider tightening up just the AM Novolog parameters further tomorrow to prevent this. 07/27 * BSGs [phone] yesterday into today. Lantus dose titrated to 40 units BID starting yesterday evening. Fasting this AM 169mg/dL after receiving 70 units of basal insulin yesterday. Received 71 units of bolus insulin (total 141 units 07/26). Novolog parameters were tightened to 8/2.5 last evening. * Stressors stable, tolerating diet. * Continue with Lantus 40units BID for today and tightened Novolog parameters. 07/25 * 67 year old female admitted w/ CP and SOB, morbid obesity, only on PO med for DM, but was previously on high dose insulin via pump. * Basal bolus insulin started yesterday, continue and titrate to goal. PLAN FOR INPATIENT GLYCEMIC CONTROL: * Hold outpatient oral diabetes medications * Basal insulin * Lantus 50 units SC daily * Lantus 45-50 units SC HS (see EHR for details) * Bolus insulin * NovoLog per scale ACHS or Q6hrs while NPO * Goal Range: Low 110 mg/dL - High 140 mg/dL * Correction Factor: 6 mg/dL/unit at breakfast and 8 mg/dl/units at lunch, dinner and HS * Nutritional / Prandial insulin per carb ratio of 1 unit per 2 grams CHO consumed at breakfast and 1 unit per 2.5 grams CHO consumed at lunch, dinner and HS
[2022-08-01] MEDS: oxyCODONE HCL IR 5 MG TAB (IMMEDIATE RELEASE) PO PRN ×2 (09:52→18:59)
[2022-08-01] MEDS ORDERED: KETOROLAC TROMETHAMINE 15 MG/ML VIAL IV ONE (10:46)
--- NOTE | 2022-08-01 14:04 | XRay Report ---
XR knee RT 1 or 2V routine HISTORY: 67 years-old Female Medial compartment pain acute pain of the right knee COMPARISON: Right knee radiographs 03/25/2022 TECHNIQUE: 2 views of the right knee FINDINGS: Subacute to chronic appearing comminuted, displaced and angulated fracture involving the distal metad iaphyseal femur is noted with interval healing bony callus formation and remodeling. No significant b yasir bridging. 1.5 cm posterior with 1.6 cm medial displacement, mild apex medial and posterior angula tion. Moderate size joint effusion. Mild medial and lateral with moderate patellofemoral compartment osteoarthritis. Arterial calcifications. IMPRESSION: Comminuted, displaced and angulated subacute to chronic appearing fracture of the distal femoral meta diaphysis demonstrates similar alignment compared to be 03/25/2022 study. There is however progressive bony callus formation with remodeling. No significant bony bridging of the large fracture fragments. Findings are compatible with delayed healing. ACT 112: Negative or not required by law. The above report was generated using voice recognition software. It may contain grammatical, syntax o r spelling errors. Electronically signed by: Robbie Henderson M.D. 08/01/2022 2:02 PM
[2022-08-01] MEDS: POLYETHYLENE (MIRALAX) 17 GM PACK PO PRN (14:05)
--- NOTE | 2022-08-01 17:47 | Hospitalist Progress Note ---
Date of Service August 01, 2022 Assessment & Plan (1) Chest pain: Plan: none additional remains Chest pain-free, of note patient with substantial pain relief using Voltaren and pain was reproducible on palpation yesterday No EKG findings consistent with ischemia. High-sensitivity troponin 7.5, stable No shortness of breath, Mucous plug versus anxiety with initial episode Patient doing well on medical surgical, pending SNF (2) Weakness: Plan: PT/OT eval and treat, current goal subacute rehab at SNF with knee pain, x ray shows poor healing of femur, will have right leg non weight bearing for PT and see ortho, did see DR Su prior to transfer in march 2022 right knee pain maybe referred from femur (3) CKD (chronic kidney disease) stage 4, GFR 15-29 ml/min: Plan: Creatinine stable (4) Morbid obesity: Plan: An unfortunate root cause of much of her comorbidities (5) Type 2 diabetes mellitus: Plan: A1c 8.9, insulin management, pharmacy glycemic consult Empagliflozin held (6) DVT prophylaxis: Plan: Lovenox (7) Chronic respiratory failure: Plan: Stable. Probably predominantly OHS mediated (8) HTN (hypertension): Plan: Home meds Blood pressure has been acceptable (9) Hypoventilation associated with obesity: Plan: Tracheostomy, clear, patient doing well (10) Chronic diastolic congestive heart failure: Plan: Continued on torsemide, spironolactone, metoprolol, lisinopril, isosorbide, atorvastatin, aspirin (11) Cor pulmonale: Plan: Home meds (12) Coronary artery disease: Plan: Home meds stable Plan DVT prophylaxis with Lovenox Admission and Anticipated Discharge Date Admission Date: July 25, 2022 Subjective pt has some right knee pain worsened with new mobility and PT, otherwise no new complaints or problems is awaiting placement xray shows delayed healing of femur, will halt weight bearing and have ortho weigh in Review of Systems Review of Systems: Mild distress and fatigue no headache, no visual changes no speech or swallowing issues as speak by occluding her chronic tracheostomy no chest pain, pressure or palpitations no shortness of breath, cough or wheezes no abdominal pain, nausea or vomiting, diarrhea or constipation no dysuria, hematuria or frequency right knee pain with no swelling or redness mostly medial no back pain, CVA tenderness or radicular pain no bruising, bleeding or rashes no focal signs of weakness or numbness or altered sensation no complaints of anxiety or depression.. Physical Exam Physical Exam: The patient appeared well nourished and normally developed. Patient is morbidly obese with a BMI of 56 Vital signs as documented. Head exam is normocephalic atraumatic Neck is without JVD, thyromegaly, or carotid bruits. Tracheostomy is in place patient closes to speak Lungs are clear to auscultation, no focal loss of breath sounds coarse breath sounds are heard Cardiac exam, Rhythm is regular.. No murmurs, rubs or gallops. Abdominal exam reveals normal bowel sounds, soft non tender, no masses Extremities are nonedematous and both pedal pulses are present, right knee is not hot warm or reddened, medial pain to exam Neurologic exam is alert and oriented, no focal loss of strength or sensation she does have some weakness to her lower extremities Skin is without bruises or rashes Psychologically is without concerns for anxiety or depression.. Results & Data Results & Data ([facility]) Vital Signs (Past 12 Hours) Vital Signs Temp Pulse Resp BP Pulse Ox O2 Del Method 08/01/22 15:18 98.1 F 66 22 119/64 93 Room Air 08/01/22 14:54 67 20 95 Room Air 08/01/22 10:42 71 16 95 Room Air 08/01/22 09:36 Room Air 08/01/22 08:41 111/67 08/01/22 07:31 78 20 96 Room Air 08/01/22 07:15 97.9 F 66 22 99/64 L 95 Room Air PG Care Time/CCT Total # of Minutes Spent Total Time Spent with Patient: Total time spent is greater than 50% in coordination of care (as documented) at patient's floor/unit and/or counseling patient: Coding Level of Care Code 24286 Subseq Hosp Care Lvl 2 Diagnoses Chest pain R07.9 Weakness R53.1 CKD (chronic kidney disease) stage 4, GFR 15-29 ml/min N18.4 Morbid obesity E66.01 Type 2 diabetes mellitus E11.9 DVT prophylaxis Z29.9 Chronic respiratory failure J96.10 Respiratory failure complication: unspecified whether with hypoxia or hypercapnia HTN (hypertension) I10 Hypoventilation associated with obesity E66.2 Chronic diastolic congestive heart failure I50.32 Cor pulmonale I27.81 Coronary artery disease I25.10 (1) Chronic respiratory failure Respiratory failure complication: unspecified whether with hypoxia or hypercapnia Qualified Code(s): J96.10 - Chronic respiratory failure, unspecified whether with hypoxia or hypercapnia
--- NOTE | 2022-08-01 19:07 | Orthopedic Consultation ---
Date of Service August 01, 2022 Assessment & Plan (1) Fracture of distal end of right femur: I do see a lot of callus formation on the x-rays, and she is not having much pain with the right knee. She is able to do simple range of motion of the knee without pain. She was just pivoting on her right leg to sit in a chair and was having mild to moderate pain in the knee. I do not feel the distal femur is fully healed at this point, however I think it safe to do some partial weightbearing on the right leg. Orthopedics will continue to follow. History of Present Illness Reason for Consultation: Delayed healing right distal femur fracture. Requesting Physician: . Attending Physician: Surya Jaramillo MD Whit is a pleasant six 7-year-old female who is morbidly obese. She was able to ambulate with a walker until March 2022. At that time she was admitted to [facility] with cellulitis. While up and using the bathroom at the hospital, she had a fall and fractured her right distal femur. Dr. Su with [facility] orthopedics was consulted and he recommended conservat mahnaz treatment. She was then sent to [facility]. The orthopedist at [facility] also recommended conservative treatment. According to the patient, she spent 4 months at [facility] for her right distal femur fracture. She was then discharged to a rehab facility in [place]. She was at that facility for 2 weeks and her insurance ran out. She was then discharged home. When she came home, the family was unable to take care of her and she was brought to [facility] and admitted to the medical service. She was seen by our physical therapist and was able to do some pivoting with the right leg to get into a chair. She was complaining of some knee pain so an x-ray was done which showed some callus formation but also some delayed healing of the distal femur fracture. Orthopedics was then consulted for weightbearing recommendations. Allergies Allergy/AdvReac Type Severity Reaction Status Date / Time Penicillins Allergy Intermediate Hives Verified 07/24/22 18:18 amitriptyline Allergy Unknown Unknown Verified 07/24/22 18:18 doxycycline Allergy Unknown Unknown Verified 07/24/22 18:18 guaifenesin Allergy Unknown Unknown Verified 07/24/22 18:18 metformin Allergy Unknown Unknown Verified 07/24/22 18:18 phenylephrine Allergy Unknown Unknown Verified 07/24/22 18:18 pseudoephedrine Allergy Unknown Unknown Verified 07/24/22 18:18 tetracycline Allergy Unknown Unknown Verified 07/24/22 18:18 venlafaxine [From Effexor] Allergy Unknown Unknown Verified 07/24/22 18:18 gabapentin AdvReac Intermediate BECOMES Verified 07/24/22 18:18 AGGRESSIVE Home Medications Medication Instructions Recorded Confirmed Type aspirin 81 mg tablet,delayed 81 mg PO QAM 04/06/19 07/24/22 History release (Robert Low Dose Aspirin) bupropion HCl 100 mg tablet,12 hr See Rx Instructions .Route .COMPLEX 04/06/19 07/24/22 History sustained-release docusate sodium 100 mg capsule 100 mg PO BID 04/06/19 07/24/22 History isosorbide mononitrate 60 mg 60 mg PO QAM 04/06/19 07/24/22 History tablet,extended release 24 hr metoprolol tartrate 25 mg tablet 12.5 mg PO BID 04/06/19 07/24/22 History multivitamin 1 tab PO QAM 04/06/19 07/24/22 History pantoprazole 40 mg tablet,delayed 40 mg PO QAM 04/06/19 07/24/22 History release spironolactone 25 mg tablet 25 mg PO QAM 04/06/19 07/24/22 History topiramate 100 mg tablet See Rx Instructions .Route .COMPLEX 04/06/19 07/24/22 History Oxygen Home #1 ea 06/28/19 03/22/22 History nitroglycerin 0.4 mg sublingual 0.4 mg sublingual DIRECTED PRN 06/28/19 07/24/22 History tablet Chest Pain nebulizers #1 ea 12/24/20 03/22/22 Rx betamethasone dipropionate 0.05 % 1 applic topical BID PRN Skin 02/27/21 07/24/22 History topical cream Irritation ipratropium 0.5 mg-albuterol 3 mg 3 ml inhalation Q4H PRN COUGHING, 02/27/21 07/24/22 History (2.5 mg base)/3 mL nebulization WHEEZING, SHORTNESS OF BREATH soln lisinopril 2.5 mg tablet 2.5 mg PO QAM 02/27/21 07/24/22 History potassium chloride 10 mEq 20 meq PO AMPM 02/27/21 07/24/22 History tablet,extended release folic acid 1 mg tablet 1 mg PO QAM #0 tabs 04/19/21 07/24/22 Rx subcutaneous insulin pump (MiniMed #1 ea 05/11/21 03/22/22 History 630G Insulin Pump) lorazepam 1 mg tablet (Ativan) 1 mg PO Q8H PRN Anxiety 08/20/21 07/24/22 History blood sugar diagnostic (Contour #300 ea 09/29/21 03/22/22 Rx Next Test Strips) albuterol sulfate 90 mcg/actuation 2 puff inhalation Q4 PRN Shortness 11/25/21 07/24/22 History aerosol inhaler Of Breath ipratropium 20 mcg-albuterol 100 1 puff inhalation QID 11/25/21 07/24/22 History mcg/actuation mist for inhalation (Combivent Respimat) atorvastatin 40 mg tablet 40 mg PO QPM #90 tabs 01/14/22 07/24/22 Rx montelukast 10 mg tablet 10 mg PO QPM #30 tabs 01/28/22 07/24/22 Rx (Singulair) acetaminophen 500 mg tablet 500 mg PO QPM 03/23/22 07/24/22 History (Tylenol Extra Strength) acidophilus 100 million 1 cap PO DAILY 03/23/22 07/24/22 History cell-pectin, citrus 10 mg capsule empagliflozin 25 mg tablet 25 mg PO DAILY 03/23/22 07/24/22 History (Jardiance) hydrogen peroxide 3 % solution 1 applic topical DIRECTED PRN 03/23/22 07/24/22 History [facility]ARE insulin lispro 100 unit/mL 0 unit subcut USEASDIRECTD 03/23/22 07/24/22 History subcutaneous solution (Humalog U-100 Insulin) levothyroxine 200 mcg tablet 200 mcg PO DAILYBB 03/23/22 07/24/22 History torsemide 10 mg tablet 10 mg PO BID 07/24/22 07/24/22 History Past Med/Surg History Medical History Ambulatory dysfunction Anxiety Breathlessness Bronchiectasis Chest pain CHF (congestive heart failure) Chronic respiratory failure CKD (chronic kidney disease), stage III COPD (chronic obstructive pulmonary disease) DM type 2 (diabetes mellitus, type 2) Dyslipidemia Fluid overload HTN (hypertension) Hypoventilation associated with obesity Insulin-requiring or dependent type II diabetes mellitus Migraine Morbid obesity MRSA (methicillin resistant staph aureus) culture positive "sputum 11/2015" Right ventricular dysfunction Sepsis Tracheostomy in place Surgical History History of appendectomy History of cholecystectomy History of hysterectomy History of tonsillectomy and adenoidectomy S/P IVC filter Family History Mother Coronary heart disease COPD (chronic obstructive pulmonary disease) Father Suicide Hung himself. Pt found him. Unknown Lung cancer Social History Smoking Status: Never smoker Second Hand Exposure: No; Hx Alcohol Use: No Hx Substance Use: No Preferred Language: Frisian Communication Ability: Effective Visual Impairment: Limited Sports Statistician Required: No Beliefs That Will Affect Care: None marital status: Current Living Situation: Family Current Living Situation Comment: at home with daughter current occupational status: disabled Other Information That Helps Us Care for You: No Feels Safe at Home: Yes Safety Concerns: Feels Safe At This Time Assistive Devices: Glasses Review of Systems All systems reviewed & are unremarkable except as noted in HPI & below. Physical Exam On physical examination of the right leg, she actually has pain-free range of motion of her knee from 0 to 60 degrees. She has a little bit of tenderness to deep palpation around the distal femur but is not too bad.. Constitutional WD/WN, vitals as above Eyes PERRL, conjunctivae normal, anicteric sclerae ENMT external ear and nose normal, oropharynx normal Neck trachea midline, no thyromegaly Respiratory normal respiratory effort, lungs clear to auscultation Cardiovascular RRR, no murmur, no edema Gastrointestinal (Abdomen) normal bowel sounds, soft, nontender, no hepatosplenomegaly Skin no rashes, warm and dry Psychiatric A+Ox3, euthymic affect Results & Data Results & Data Laboratory Results . Diagnostic Findings X-rays of the right distal femur do show a comminuted fracture of the metadi aphyseal section of the right distal femur. There is signs of callus formation and also some delayed healing proximally.. PG Care Time/CCT Total # of Minutes Spent Total Time Spent with Patient: Total time spent is greater than 50% in coordination of care (as documented) at patient's floor/unit and/or counseling patient: Coding Level of Care Code 79166 Inpt Consult Level 4 Diagnoses Fracture of distal end of right femur S72.401A
[2022-08-01] MEDS: ATORVASTATIN 40 MG TAB PO SCH (20:47)
[2022-08-01] MEDS: ENOXAPARIN INJ 40 MG/0.4 ML SYR SQ SCH (20:48)
[2022-08-01] MEDS: MONTELUKAST SODIUM 10 MG TABLET PO SCH (20:50)
[2022-08-01] MEDS ORDERED: LANTUS PER UNIT CHARGE SQ SCH (21:00)
[2022-08-02] MEDS: LEVOTHYROXINE SODIUM 200 MCG TABLET PO SCH (06:17)
[2022-08-02] MEDS: TORSEMIDE 10 MG TAB PO SCH ×2 (06:17→14:14)
[2022-08-02] MEDS: Ipratropium HFA Inhaler (Combivent Respimat P&T Subs) INH SCH ×4 (07:24→19:28)
[2022-08-02] MEDS: Albuterol HFA 8 GM Inhaler (Combivent Respimat P&T Subs) INH SCH ×4 (07:25→19:28)
[2022-08-02] MEDS: oxyCODONE HCL IR 5 MG TAB (IMMEDIATE RELEASE) PO PRN ×2 (07:43→16:29)
[2022-08-02] MEDS: DOCUSATE SODIUM 100 MG CAP PO SCH ×2 (07:43→21:18)
[2022-08-02] MEDS: POTASSIUM CHLORIDE CRTAB 20 MEQ TABCR PO SCH ×2 (07:44→21:20)
[2022-08-02] MEDS: ASPIRIN 81 MG ECTAB PO SCH (07:44)
[2022-08-02] MEDS: lisinopril 2.5 MG TAB PO SCH (07:44)
[2022-08-02] MEDS: buPROPion SR 100 MG TABCR PO SCH ×2 (07:44→21:18)
[2022-08-02] MEDS: MULTIVITAMIN TAB PO SCH (07:45)
[2022-08-02] MEDS: METOPROLOL TARTRATE 25 MG TAB PO SCH ×2 (07:45→21:31)
[2022-08-02] MEDS: SPIRONOLACTONE 25 MG TAB PO SCH (07:45)
[2022-08-02] MEDS: ISOSORBIDE MONO EXTENDED REL 60 MG TABCR PO SCH (07:45)
[2022-08-02] MEDS: ADVANCED PROBIOTIC 1250 MG CAPSULE PO SCH (07:45)
[2022-08-02] MEDS: TOPIRAMATE 100 MG TAB PO SCH ×2 (07:45→21:20)
[2022-08-02] MEDS: FOLIC ACID 1 MG TAB PO SCH (07:45)
[2022-08-02] MEDS: PANTOprazole 40 MG TAB PO SCH ×2 (07:45→21:19)
[2022-08-02] MEDS: DICLOFENAC SOD 1% GEL 100 GM TUBE EXT SCH ×4 (07:46→21:18)
[2022-08-02] MEDS: INSULIN ASPART PER UNIT SC SCH ×4 (08:43→21:17)
[2022-08-02] MEDS: LANTUS PER UNIT CHARGE SQ SCH ×2 (08:43→21:16)
[2022-08-02] MEDS: POLYETHYLENE (MIRALAX) 17 GM PACK PO PRN (08:49)
--- NOTE | 2022-08-02 10:38 | Progress Notes ---
DATE OF SERVICE: 08/02/2022 The patient is known to me from hospitalization back in March. She had a right distal femur fracture. She is also unfortunately morbidly obese, which complicates her care. She was transferred to [facility] for management. Nonsurgical management was elected. She reports spending 4 months at [facility] and then was transferred to a rehab facility in [place] 2 weeks ago. She was then [place] after her insurance ran out. Before she ever got into her house, she was seen by paramedics and b rought here to the hospital. She reports that she has not ambulated on the leg since her injury. Elias nixon has pivot transferred. She does report some discomfort in the right leg area and it feels wobbly. Today on examination, she has limited movement of the knee. She has intact sensation distally with 1 + dorsalis pedis pulse. There is some firmness in the distal femur and some tenderness to palpation and there is gross laxity to stressing of the fracture site. 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 Report noted. I discussed with her that her femur fracture is not healed. It is unlikely that it will heal further . Her options are to accept that as is. This would limit her mobility. She would not be able to amb ulate, but we might be able to get her to pivot transfer bed to chair. She could bear a little bit o f weight on the leg as she tolerates, but I do not think that she is going to be able to weightbear a s tolerated. The leg will be wobbly and unstable and she could be prone to falling. The other optio n is to consider surgery, which would be a complex endeavor. That would be something that a tertiary care facility, either [facility] or [facility], would need to facilitate. At this point, she is not int erested in any surgery. She can transfer bed to wheelchair with assistance, walker. She can put a l ittle bit of weight on the leg to assist in doing so as she tolerates, but should not rely on the leg for stability. Job ID: [id number]
[2022-08-02] MEDS: MoRPHine SULFATE 2 MG/ML CARP IV PRN ×2 (14:13→21:30)
[2022-08-02] MEDS: ATORVASTATIN 40 MG TAB PO SCH (21:17)
[2022-08-02] MEDS: ENOXAPARIN INJ 40 MG/0.4 ML SYR SQ SCH (21:18)
[2022-08-02] MEDS: MONTELUKAST SODIUM 10 MG TABLET PO SCH (21:19)
[2022-08-03] MEDS: LEVOTHYROXINE SODIUM 200 MCG TABLET PO SCH (06:09)
[2022-08-03] MEDS: TORSEMIDE 10 MG TAB PO SCH ×2 (06:09→14:35)
[2022-08-03] MEDS: oxyCODONE HCL IR 5 MG TAB (IMMEDIATE RELEASE) PO PRN ×3 (06:13→20:47)
[2022-08-03] MEDS: Ipratropium HFA Inhaler (Combivent Respimat P&T Subs) INH SCH ×4 (06:59→19:17)
[2022-08-03] MEDS: Albuterol HFA 8 GM Inhaler (Combivent Respimat P&T Subs) INH SCH ×4 (07:00→19:17)
[2022-08-03] MEDS: ISOSORBIDE MONO EXTENDED REL 60 MG TABCR PO SCH (08:06)
[2022-08-03] MEDS: METOPROLOL TARTRATE 25 MG TAB PO SCH ×2 (08:06→20:51)
[2022-08-03] MEDS: DOCUSATE SODIUM 100 MG CAP PO SCH ×2 (08:06→20:47)
[2022-08-03] MEDS: POTASSIUM CHLORIDE CRTAB 20 MEQ TABCR PO SCH ×2 (08:06→20:50)
[2022-08-03] MEDS: ASPIRIN 81 MG ECTAB PO SCH (08:06)
[2022-08-03] MEDS: FOLIC ACID 1 MG TAB PO SCH (08:06)
[2022-08-03] MEDS: ADVANCED PROBIOTIC 1250 MG CAPSULE PO SCH (08:06)
[2022-08-03] MEDS: MULTIVITAMIN TAB PO SCH (08:06)
[2022-08-03] MEDS: buPROPion SR 100 MG TABCR PO SCH ×2 (08:07→20:24)
[2022-08-03] MEDS: lisinopril 2.5 MG TAB PO SCH (08:07)
[2022-08-03] MEDS: TOPIRAMATE 100 MG TAB PO SCH ×2 (08:07→20:27)
[2022-08-03] MEDS: PANTOprazole 40 MG TAB PO SCH ×2 (08:07→20:26)
[2022-08-03] MEDS: SPIRONOLACTONE 25 MG TAB PO SCH (08:07)
[2022-08-03] MEDS: DICLOFENAC SOD 1% GEL 100 GM TUBE EXT SCH ×4 (08:08→20:25)
[2022-08-03] MEDS: INSULIN ASPART PER UNIT SC SCH ×4 (08:17→20:48)
[2022-08-03] MEDS: LANTUS PER UNIT CHARGE SQ SCH ×2 (08:17→20:48)
[2022-08-03 08:39] LABS: Creatinine Clr Calc Pharmacy 41.4 ml/min; Est GFR (African American) 33.2 ml/min; Est GFR (Non-African American) 28.6 ml/min
--- NOTE | 2022-08-03 17:45 | Hospitalist Progress Note ---
Date of Service August 03, 2022 Assessment & Plan (1) Chest pain: Plan: none additional remains Chest pain-free, of note patient with substantial pain relief using Voltaren and pain was reproducible on palpation yesterday No EKG findings consistent with ischemia. High-sensitivity troponin 7.5, stable No shortness of breath, Mucous plug versus anxiety with initial episode Patient doing well on medical surgical, pending SNF, her non weight bearing on right leg now maybe issue (2) Weakness: Plan: PT/OT eval and treat, current goal subacute rehab at SNF with knee pain, x ray shows poor healing of femur, will have right leg non weight bearing for PT and see ortho, did see DR Su prior to transfer in march 2022 right knee pain maybe referred from femur as it appears to be non union (3) CKD (chronic kidney disease) stage 4, GFR 15-29 ml/min: Plan: Creatinine stable (4) Morbid obesity: Plan: An unfortunate root cause of much of her comorbidities (5) Type 2 diabetes mellitus: Plan: A1c 8.9, insulin management, pharmacy glycemic consult Empagliflozin held (6) DVT prophylaxis: Plan: Lovenox (7) Chronic respiratory failure: Plan: Stable. Probably predominantly OHS mediated (8) HTN (hypertension): Plan: Home meds Blood pressure has been acceptable (9) Hypoventilation associated with obesity: Plan: Tracheostomy, clear, patient doing well (10) Chronic diastolic congestive heart failure: Plan: Continued on torsemide, spironolactone, metoprolol, lisinopril, isosorbide, atorvastatin, aspirin (11) Cor pulmonale: Plan: Home meds (12) Coronary artery disease: Plan: Home meds stable Plan DVT prophylaxis with Lovenox Admission and Anticipated Discharge Date Admission Date: July 25, 2022 Subjective pt has some right knee pain worsened with new mobility and PT, otherwise no new complaints or problems is awaiting placement xray shows delayed healing of femur, orhto feels she has poor union and is non weight bearing Review of Systems Review of Systems: Mild distress and fatigue no headache, no visual changes no speech or swallowing issues as speak by occluding her chronic tracheostomy no chest pain, pressure or palpitations no shortness of breath, cough or wheezes no abdominal pain, nausea or vomiting, diarrhea or constipation no dysuria, hematuria or frequency right knee pain with no swelling or redness mostly medial no back pain, CVA tenderness or radicular pain no bruising, bleeding or rashes no focal signs of weakness or numbness or altered sensation no complaints of anxiety or depression.. Physical Exam Physical Exam: The patient appeared well nourished and normally developed. Patient is morbidly obese with a BMI of 56 Vital signs as documented. Head exam is normocephalic atraumatic Neck is without JVD, thyromegaly, or carotid bruits. Tracheostomy is in place patient closes to speak Lungs are clear to auscultation, no focal loss of breath sounds coarse breath sounds are heard Cardiac exam, Rhythm is regular.. No murmurs, rubs or gallops. Abdominal exam reveals normal bowel sounds, soft non tender, no masses Extremities are nonedematous and both pedal pulses are present, right knee is not hot warm or reddened, medial pain to exam Neurologic exam is alert and oriented, no focal loss of strength or sensation she does have some weakness to her lower extremities Skin is without bruises or rashes Psychologically is without concerns for anxiety or depression.. Results & Data Results & Data ([facility]) Vital Signs (Past 12 Hours) Vital Signs Temp Pulse Resp BP Pulse Ox O2 Del Method 08/03/22 15:53 78 20 95 Room Air 08/03/22 14:47 97.9 F 76 18 102/58 L 95 Room Air 08/03/22 10:55 88 22 95 Room Air 08/03/22 07:25 Trach Collar 08/03/22 07:16 97.9 F 67 17 110/70 94 Room Air 08/03/22 07:00 64 18 96 Room Air PG Care Time/CCT Total # of Minutes Spent Total Time Spent with Patient: Total time spent is greater than 50% in coordination of care (as documented) at patient's floor/unit and/or counseling patient: Coding Level of Care Code 48490 Subseq Hosp Care Lvl 2 Diagnoses Chest pain R07.9 Weakness R53.1 CKD (chronic kidney disease) stage 4, GFR 15-29 ml/min N18.4 Morbid obesity E66.01 Type 2 diabetes mellitus E11.9 DVT prophylaxis Z29.9 Chronic respiratory failure J96.10 Respiratory failure complication: unspecified whether with hypoxia or hypercapnia HTN (hypertension) I10 Hypoventilation associated with obesity E66.2 Chronic diastolic congestive heart failure I50.32 Cor pulmonale I27.81 Coronary artery disease I25.10 (1) Chronic respiratory failure Respiratory failure complication: unspecified whether with hypoxia or hypercapnia Qualified Code(s): J96.10 - Chronic respiratory failure, unspecified whether with hypoxia or hypercapnia
[2022-08-03] MEDS: ENOXAPARIN INJ 40 MG/0.4 ML SYR SQ SCH (20:25)
[2022-08-03] MEDS: MONTELUKAST SODIUM 10 MG TABLET PO SCH (20:26)
[2022-08-03] MEDS: ATORVASTATIN 40 MG TAB PO SCH (20:48)
[2022-08-04] MEDS: ALUMINUM/MAGNESIUM SUSP 30 ML UDC PO PRN (01:59)
[2022-08-04] MEDS: oxyCODONE HCL IR 5 MG TAB (IMMEDIATE RELEASE) PO PRN ×2 (04:38→14:25)
[2022-08-04] MEDS: TORSEMIDE 10 MG TAB PO SCH ×2 (06:26→14:24)
[2022-08-04] MEDS: LEVOTHYROXINE SODIUM 200 MCG TABLET PO SCH (06:26)
[2022-08-04] MEDS: Albuterol HFA 8 GM Inhaler (Combivent Respimat P&T Subs) INH SCH ×4 (07:51→19:22)
[2022-08-04] MEDS: Ipratropium HFA Inhaler (Combivent Respimat P&T Subs) INH SCH ×4 (07:51→19:21)
[2022-08-04] MEDS: INSULIN ASPART PER UNIT SC SCH ×4 (09:09→21:41)
[2022-08-04] MEDS: LANTUS PER UNIT CHARGE SQ SCH ×2 (09:10→21:42)
[2022-08-04] MEDS: METOPROLOL TARTRATE 25 MG TAB PO SCH ×2 (09:16→21:42)
[2022-08-04] MEDS: PANTOprazole 40 MG TAB PO SCH ×2 (09:17→21:43)
[2022-08-04] MEDS: TOPIRAMATE 100 MG TAB PO SCH ×2 (09:17→21:39)
[2022-08-04] MEDS: FOLIC ACID 1 MG TAB PO SCH (09:17)
[2022-08-04] MEDS: MULTIVITAMIN TAB PO SCH (09:18)
[2022-08-04] MEDS: lisinopril 2.5 MG TAB PO SCH (09:18)
[2022-08-04] MEDS: buPROPion SR 100 MG TABCR PO SCH ×2 (09:18→21:40)
[2022-08-04] MEDS: ADVANCED PROBIOTIC 1250 MG CAPSULE PO SCH (09:19)
[2022-08-04] MEDS: ISOSORBIDE MONO EXTENDED REL 60 MG TABCR PO SCH (09:19)
[2022-08-04] MEDS: SPIRONOLACTONE 25 MG TAB PO SCH (09:19)
[2022-08-04] MEDS: DICLOFENAC SOD 1% GEL 100 GM TUBE EXT SCH ×4 (09:20→21:43)
[2022-08-04] MEDS: DOCUSATE SODIUM 100 MG CAP PO SCH ×2 (09:23→21:38)
[2022-08-04] MEDS: POTASSIUM CHLORIDE CRTAB 20 MEQ TABCR PO SCH ×2 (09:46→21:38)
[2022-08-04] MEDS: ASPIRIN 81 MG ECTAB PO SCH (10:15)
--- NOTE | 2022-08-04 16:24 | Hospitalist Progress Note ---
Date of Service August 04, 2022 Assessment & Plan (1) Weakness: Plan: PT/OT eval and treat, current goal subacute rehab at SNF with knee pain, x ray shows poor healing of femur Right leg NWB Seen by Dr. Su, indicates that femur fx is not healed and will likely not heal further * Could bear some weight as tolerated - but leg will be unstable and put her at risk of falls * Transfer bed to wheelchair with assistance of a walker * Needs SNF w/ rehab in order to get her to safely transfer Can use Voltaren to R knee also (2) Chest pain: Plan: Remains Chest pain-free, of note patient with substantial pain relief using Voltaren and pain was reproducible on palpation yesterday No EKG findings consistent with ischemia. High-sensitivity troponin 7.5, stable No shortness of breath, Mucous plug versus anxiety with initial episode Patient doing well on medical surgical, pending SNF, her non weight bearing on right leg now maybe issue (3) CKD (chronic kidney disease) stage 4, GFR 15-29 ml/min: Plan: Creatinine stable (4) Morbid obesity: Plan: An unfortunate root cause of much of her comorbidities (5) Type 2 diabetes mellitus: Plan: A1c 8.9, insulin management, pharmacy glycemic consult Empagliflozin held (6) Chronic respiratory failure: Plan: Stable. Probably predominantly OHS mediated (7) HTN (hypertension): Plan: Home meds Blood pressure has been acceptable (8) Hypoventilation associated with obesity: Plan: Tracheostomy, clear, patient doing well (9) Chronic diastolic congestive heart failure: Plan: with cor pulmonale and cad Continued on torsemide, spironolactone, metoprolol, lisinopril, isosorbide, atorvastatin, aspirin Plan DVT prophylaxis with Lovenox. Case management on consult to assist in dc planning. She is medically stable for discharge. Multiple referrals sent out and are pending. Dispo remains uncertain. Remove paul. Above d/w attending, Dr. Salazar. Admission and Anticipated Discharge Date Admission Date: July 25, 2022 Subjective Patient seen on daily rounds this morning. She has no new complaints/concerns. Pain adequately controlled at present. No cp or dyspnea. Review of Systems Review of Systems: All systems reviewed and are unremarkable except as noted in HPI and below. Denies fever, chills, fatigue, headache, nasal congestion, sore throat, cough, chest pain, shortness of breath, palpitations, orthopnea, PND, abdominal pain, n/v/d, constipation, dysuria, hematuria, frequency, back pain, joint pain or swelling, easy bruising or bleeding, skin lesions or rashes. Physical Exam Physical Exam: GENERAL: 67 yo morbidly obese WF. NAD. LUNGS: Clear to auscultation bilaterally. No W/R/R. trach noted. CARDIOVASCULAR: Regular rate and rhythm. ABDOMEN: Soft, non-tender and non-distended. BS normoactive x 4 quad. : Paul EXTREMITIES: No edema. Non-tender. Peripheral pulses +2/4. NEUROLOGIC: A&O x3. Nonfocal PSYCHIATRIC: Cooperative. Appropriate mood and affect. SKIN: Warm, dry, intact. No rashes or lesions. Results & Data Results & Data ([facility]) Vital Signs (Past 12 Hours) Vital Signs Temp Pulse Resp BP Pulse Ox O2 Del Method 08/04/22 15:30 72 16 96 Room Air 08/04/22 14:08 36.7 C 82 19 97/57 L 95 Room Air 08/04/22 07:45 Room Air 08/04/22 10:47 68 16 95 Room Air 08/04/22 09:15 78 127/71 08/04/22 07:52 73 18 93 Room Air 08/04/22 07:28 36.5 C 63 18 104/64 94 Room Air PG Care Time/CCT Total # of Minutes Spent Total Time Spent with Patient: Total time spent is greater than 50% in coordination of care (as documented) at patient's floor/unit and/or counseling patient: Coding Level of Care Code 20023 Subseq Hosp Care Lvl 2 Diagnoses Weakness R53.1 Chest pain R07.9 CKD (chronic kidney disease) stage 4, GFR 15-29 ml/min N18.4 Morbid obesity E66.01 Type 2 diabetes mellitus E11.9 Chronic respiratory failure J96.10 Respiratory failure complication: unspecified whether with hypoxia or hypercapnia HTN (hypertension) I10 Hypoventilation associated with obesity E66.2 Chronic diastolic congestive heart failure I50.32 (1) Chronic respiratory failure Respiratory failure complication: unspecified whether with hypoxia or hypercapnia Qualified Code(s): J96.10 - Chronic respiratory failure, unspecified whether with hypoxia or hypercapnia
[2022-08-04] MEDS: ATORVASTATIN 40 MG TAB PO SCH (21:40)
[2022-08-04] MEDS: ENOXAPARIN INJ 40 MG/0.4 ML SYR SQ SCH (21:41)
[2022-08-04] MEDS: MONTELUKAST SODIUM 10 MG TABLET PO SCH (21:42)
[2022-08-05] MEDS: LEVOTHYROXINE SODIUM 200 MCG TABLET PO SCH (06:21)
[2022-08-05] MEDS: TORSEMIDE 10 MG TAB PO SCH ×2 (06:21→13:51)
[2022-08-05] MEDS: oxyCODONE HCL IR 5 MG TAB (IMMEDIATE RELEASE) PO PRN ×3 (06:24→21:02)
[2022-08-05] MEDS: Albuterol HFA 8 GM Inhaler (Combivent Respimat P&T Subs) INH SCH ×4 (07:10→19:58)
[2022-08-05] MEDS: Ipratropium HFA Inhaler (Combivent Respimat P&T Subs) INH SCH ×4 (07:11→19:58)
[2022-08-05] MEDS: METOPROLOL TARTRATE 25 MG TAB PO SCH ×2 (08:07→21:05)
[2022-08-05] MEDS: FOLIC ACID 1 MG TAB PO SCH (08:07)
[2022-08-05] MEDS: MULTIVITAMIN TAB PO SCH (08:08)
[2022-08-05] MEDS: SPIRONOLACTONE 25 MG TAB PO SCH (08:09)
[2022-08-05] MEDS: PANTOprazole 40 MG TAB PO SCH ×2 (08:09→21:06)
[2022-08-05] MEDS: ISOSORBIDE MONO EXTENDED REL 60 MG TABCR PO SCH (08:09)
[2022-08-05] MEDS: ASPIRIN 81 MG ECTAB PO SCH (08:10)
[2022-08-05] MEDS: TOPIRAMATE 100 MG TAB PO SCH ×2 (08:10→21:07)
[2022-08-05] MEDS: ADVANCED PROBIOTIC 1250 MG CAPSULE PO SCH (08:10)
[2022-08-05] MEDS: DICLOFENAC SOD 1% GEL 100 GM TUBE EXT SCH ×4 (08:11→21:04)
[2022-08-05] MEDS: lisinopril 2.5 MG TAB PO SCH (08:11)
[2022-08-05] MEDS: buPROPion SR 100 MG TABCR PO SCH ×2 (08:11→21:03)
[2022-08-05] MEDS: DOCUSATE SODIUM 100 MG CAP PO SCH ×2 (08:12→21:02)
[2022-08-05] MEDS: POTASSIUM CHLORIDE CRTAB 20 MEQ TABCR PO SCH ×2 (08:16→21:06)
[2022-08-05] MEDS: INSULIN ASPART PER UNIT SC SCH ×4 (08:58→21:04)
[2022-08-05] MEDS: LANTUS PER UNIT CHARGE SQ SCH ×2 (08:59→21:05)
--- NOTE | 2022-08-05 09:44 | Hospitalist Progress Note ---
Date of Service August 05, 2022 Assessment & Plan (1) Weakness: Plan: PT/OT eval and treat, current goal subacute rehab at SNF with knee pain, x ray shows poor healing of femur Right leg NWB Seen by Dr. Su, indicates that femur fx is not healed and will likely not heal further * Could bear some weight as tolerated - but leg will be unstable and put her at risk of falls * Transfer bed to wheelchair with assistance of a walker * Needs SNF w/ rehab in order to get her to safely transfer Can use Voltaren to R knee also (2) Chest pain: Plan: Remains Chest pain-free, of note patient with substantial pain relief using Voltaren and pain was reproducible on palpation yesterday No EKG findings consistent with ischemia. High-sensitivity troponin 7.5, stable No shortness of breath, Mucous plug versus anxiety with initial episode Patient doing well on medical surgical, pending SNF, her non weight bearing on right leg now maybe issue (3) CKD (chronic kidney disease) stage 4, GFR 15-29 ml/min: Plan: Creatinine stable (4) Morbid obesity: Plan: An unfortunate root cause of much of her comorbidities (5) Type 2 diabetes mellitus: Plan: A1c 8.9, insulin management, pharmacy glycemic consult Empagliflozin held (6) Chronic respiratory failure: Plan: Stable. Probably predominantly OHS mediated (7) HTN (hypertension): Plan: Home meds Blood pressure has been acceptable (8) Hypoventilation associated with obesity: Plan: Tracheostomy, clear, patient doing well (9) Chronic diastolic congestive heart failure: Plan: with cor pulmonale and cad Continued on torsemide, spironolactone, metoprolol, lisinopril, isosorbide, atorvastatin, aspirin Plan DVT prophylaxis with Lovenox. Case management on consult to assist in dc planning. She is medically stable for discharge. Multiple referrals sent out and are pending. Dispo remains uncertain. Will d/w attending, Dr. Jensen. Admission and Anticipated Discharge Date Admission Date: July 25, 2022 Subjective Patient seen on daily rounds this morning. She has no new complaints/concerns. Pain adequately controlled at present. Awaiting SNF with rehab placement. Review of Systems Review of Systems: All systems reviewed and are unremarkable except as noted i n HPI and below. Denies fever, chills, fatigue, headache, nasal congestion, sore throat, cough, chest pain, shortness of breath, palpitations, orthopnea, PND, abdominal pain, n/v/d, constipation, dysuria, hematuria, frequency, back pain, easy bruising or bleeding, skin lesions or rashes. Physical Exam Physical Exam: GENERAL: 67 yo morbidly obese WF. NAD. LUNGS: Clear to auscultation bilaterally. No W/R/R. trach noted. CARDIOVASCULAR: Regular rate and rhythm. ABDOMEN: Soft, non-tender and non-distended. BS normoactive x 4 quad. EXTREMITIES: No edema. Non-tender. Peripheral pulses +2/4. NEUROLOGIC: A&O x3. Nonfocal PSYCHIATRIC: Cooperative. Appropriate mood and affect. SKIN: Warm, dry, intact. No rashes or lesions. Results & Data Results & Data ([facility]) Vital Signs (Past 12 Hours) Vital Signs Temp Pulse Resp BP Pulse Ox O2 Del Method O2 Flow Rate 08/05/22 08:05 73 106/62 08/05/22 07:12 60 16 95 Room Air 08/05/22 06:17 36.5 C 69 20 113/71 97 Room Air 08/04/22 23:40 79 18 95 Trach Collar 6 FiO2 08/05/22 08:05 08/05/22 07:12 08/05/22 06:17 08/04/22 23:40 28 Laboratory Results no labs today PG Care Time/CCT Total # of Minutes Spent Total Time Spent with Patient: Total time spent is greater than 50% in coordination of care (as documented) at patient's floor/unit and/or counseling patient: Coding Level of Care Code 25957 Subseq Hosp Care Lvl 1 Diagnoses Weakness R53.1 Chest pain R07.9 CKD (chronic kidney disease) stage 4, GFR 15-29 ml/min N18.4 Morbid obesity E66.01 Type 2 diabetes mellitus E11.9 Chronic respiratory failure J96.10 Respiratory failure complication: unspecified whether with hypoxia or hypercapnia HTN (hypertension) I10 Hypoventilation associated with obesity E66.2 Chronic diastolic congestive heart failure I50.32 (1) Chronic respiratory failure Respiratory failure complication: unspecified whether with hypoxia or hypercapnia Qualified Code(s): J96.10 - Chronic respiratory failure, unspecified whether with hypoxia or hypercapnia
--- NOTE | 2022-08-05 12:21 | Pharmacy Report ---
Pharmacy Glycemic Short Note 2 - Date of Service August 05, 2022 - Glycemic Short BSG Results (Last 24 hours): 08/04/22 08/04/22 08/05/22 16:53 20:47 07:26 POC Glucose 157 H 120 H 180 H 08/05/22 11:50 POC Glucose 174 H OUTPATIENT ANTIDIABETIC REGIMEN: * Jardiance 25mg PO daily * Patient on insulin pump in the past (Basal rate 6 units/hr, bolus with 50 units TID meals) * A1c 8.5% 03/24/22 ASSESSMENT: * BSGs have been relatively stable past few days while receiving ~180-190 units of insulin per day. * Lantus increased slightly this morning for fasting BSG above goal. * Novolog parameters were adjusted this morning to provide additional carb coverage with breakfast, as pre-lunch BSG tends to be elevated. * Will continue to follow and adjust regimen as indicated. PLAN FOR INPATIENT GLYCEMIC CONTROL: * Hold outpatient oral diabetes medications * Basal insulin * Lantus 55 units SC BID * Bolus insulin * NovoLog per scale ACHS or Q6hrs while NPO * Goal Range: Low 110 mg/dL - High 140 mg/dL * Correction Factor: 6 mg/dL/unit at breakfast and 8 mg/dl/units at lunch, dinner and HS * Nutritional / Prandial insulin per carb ratio of 1 unit per 1.5 grams CHO consumed at breakfast, 1 unit per 2.5 grams CHO consumed at lunch, dinner and HS
[2022-08-05] MEDS: ATORVASTATIN 40 MG TAB PO SCH (21:02)
[2022-08-05] MEDS: ENOXAPARIN INJ 40 MG/0.4 ML SYR SQ SCH (21:04)
[2022-08-05] MEDS: MONTELUKAST SODIUM 10 MG TABLET PO SCH (21:06)
[2022-08-06] MEDS: TORSEMIDE 10 MG TAB PO SCH ×2 (05:50→14:05)
[2022-08-06] MEDS: LEVOTHYROXINE SODIUM 200 MCG TABLET PO SCH (05:50)
[2022-08-06] MEDS: oxyCODONE HCL IR 5 MG TAB (IMMEDIATE RELEASE) PO PRN ×3 (05:54→22:14)
[2022-08-06 07:23] LABS: Creatinine Clr Calc Pharmacy 40.3 ml/min; Est GFR (African American) 32.1 ml/min; Est GFR (Non-African American) 27.7 ml/min
[2022-08-06] MEDS: Albuterol HFA 8 GM Inhaler (Combivent Respimat P&T Subs) INH SCH ×4 (08:02→19:47)
[2022-08-06] MEDS: Ipratropium HFA Inhaler (Combivent Respimat P&T Subs) INH SCH ×4 (08:03→19:47)
[2022-08-06] MEDS: FOLIC ACID 1 MG TAB PO SCH (08:13)
[2022-08-06] MEDS: POTASSIUM CHLORIDE CRTAB 20 MEQ TABCR PO SCH ×2 (08:13→21:48)
[2022-08-06] MEDS: ASPIRIN 81 MG ECTAB PO SCH (08:13)
[2022-08-06] MEDS: DOCUSATE SODIUM 100 MG CAP PO SCH ×2 (08:13→21:48)
[2022-08-06] MEDS: MULTIVITAMIN TAB PO SCH (08:14)
[2022-08-06] MEDS: TOPIRAMATE 100 MG TAB PO SCH ×2 (08:14→21:47)
[2022-08-06] MEDS: ISOSORBIDE MONO EXTENDED REL 60 MG TABCR PO SCH (08:14)
[2022-08-06] MEDS: ADVANCED PROBIOTIC 1250 MG CAPSULE PO SCH (08:14)
[2022-08-06] MEDS: SPIRONOLACTONE 25 MG TAB PO SCH (08:14)
[2022-08-06] MEDS: PANTOprazole 40 MG TAB PO SCH ×2 (08:14→21:47)
[2022-08-06] MEDS: METOPROLOL TARTRATE 25 MG TAB PO SCH ×2 (08:14→21:42)
[2022-08-06] MEDS: lisinopril 2.5 MG TAB PO SCH (08:15)
[2022-08-06] MEDS: buPROPion SR 100 MG TABCR PO SCH ×2 (08:15→21:46)
[2022-08-06] MEDS: DICLOFENAC SOD 1% GEL 100 GM TUBE EXT SCH ×4 (08:15→21:48)
[2022-08-06] MEDS: LANTUS PER UNIT CHARGE SQ SCH ×2 (08:25→21:49)
[2022-08-06] MEDS: INSULIN ASPART PER UNIT SC SCH ×4 (08:25→21:49)
[2022-08-06] MEDS: ACETAMINOPHEN 500 MG TAB PO PRN (08:26)
--- NOTE | 2022-08-06 12:06 | Hospitalist Progress Note ---
Date of Service August 06, 2022 Assessment & Plan (1) Weakness: Plan: PT/OT eval and treat, current goal subacute rehab at SNF with knee pain, x ray shows poor healing of femur Right leg NWB Seen by Dr. Su, indicates that femur fx is not healed and will likely not heal further * Could bear some weight as tolerated - but leg will be unstable and put her at risk of falls * Transfer bed to wheelchair with assistance of a walker * Needs SNF w/ rehab in order to get her to safely transfer Can use Voltaren to R knee also (2) Chest pain: Plan: Remains Chest pain-free, of note patient with substantial pain relief using Voltaren and pain was reproducible on palpation yesterday No EKG findings consistent with ischemia. High-sensitivity troponin 7.5, stable No shortness of breath, Mucous plug versus anxiety with initial episode Patient doing well on medical surgical, pending SNF, her non weight bearing on right leg now maybe issue ISSUE RESOLVED (3) CKD (chronic kidney disease) stage 4, GFR 15-29 ml/min: Plan: Creatinine stable (4) Morbid obesity: Plan: An unfortunate root cause of much of her comorbidities (5) Type 2 diabetes mellitus: Plan: A1c 8.9, insulin management, pharmacy glycemic consult Empagliflozin held (6) Chronic respiratory failure: Plan: Stable. Probably predominantly OHS mediated (7) HTN (hypertension): Plan: - Blood pressure has been acceptable, continue meds (8) Hypoventilation associated with obesity: Plan: - Tracheostomy, clear, patient doing well (9) Chronic diastolic congestive heart failure: Plan: with cor pulmonale and cad Continued on torsemide, spironolactone, metoprolol, lisinopril, isosorbide, atorvastatin, aspirin Plan DVT prophylaxis with Lovenox. Case management on consult to assist in dc planning. She is medically stable for discharge. Multiple referrals sent out and are pending. Dispo remains uncertain as she has multiple factors complicating facility's ability to care for patient given her obesity + trach. No new changes made to her current plan. Will d/w Dr. Jensen. Admission and Anticipated Discharge Date Admission Date: July 25, 2022 Subjective Patient seen on daily rounds this morning. She is resting comfortably in bed, has no complaints. R leg pain is worse with movement, better at rest. Case management continues to work on SNF with rehab placement. Review of Systems Review of Systems: All systems reviewed and are unremarkable except as noted in HPI and below. Denies fever, chills, fatigue, headache, nasal congestion, sore throat, cough, chest pain, shortness of breath, palpitations, orthopnea, PND, abdominal pain, n/v/d, constipation, dysuria, hematuria, frequency, back pain, easy bruising or bleeding, skin lesions or rashes. Physical Exam Physical Exam: GENERAL: 67 yo morbidly obese WF. NAD. LUNGS: Clear to auscultation bilaterally. No W/R/R. metal trach noted. CARDIOVASCULAR: Regular rate and rhythm. ABDOMEN: Soft, non-tender and non-distended. BS normoactive x 4 quad. EXTREMITIES: No edema. Non-tender. Peripheral pulses +2/4. NEUROLOGIC: A&O x3. Nonfocal PSYCHIATRIC: Cooperative. Appropriate mood and affect. SKIN: Warm, dry, intact. No rashes or lesions. Results & Data Results & Data ([facility] [place]) Vital Signs (Past 12 Hours) Vital Signs Temp Pulse Resp BP Pulse Ox O2 Del Method FiO2 08/06/22 11:01 68 14 92 Room Air 21 08/06/22 11:00 68 14 92 Room Air 21 08/06/22 08:05 71 14 95 Room Air 08/06/22 07:25 Room Air 08/06/22 07:33 36.5 C 70 20 121/68 93 Room Air Laboratory Results no labs PG Care Time/CCT Total # of Minutes Spent Total Time Spent with Patient: Total time spent is greater than 50% in coordination of care (as documented) at patient's floor/unit and/or counseling patient: Coding Level of Care Code 44919 Subseq Hosp Care Lvl 1 Diagnoses Weakness R53.1 Chest pain R07.9 CKD (chronic kidney disease) stage 4, GFR 15-29 ml/min N18.4 Morbid obesity E66.01 Type 2 diabetes mellitus E11.9 Chronic respiratory failure J96.10 Respiratory failure complication: unspecified whether with hypoxia or hypercapnia HTN (hypertension) I10 Hypoventilation associated with obesity E66.2 Chronic diastolic congestive heart failure I50.32 (1) Chronic respiratory failure Respiratory failure complication: unspecified whether with hypoxia or hypercapnia Qualified Code(s): J96.10 - Chronic respiratory failure, unspecified whether with hypoxia or hypercapnia
[2022-08-06] MEDS: MONTELUKAST SODIUM 10 MG TABLET PO SCH (21:47)
[2022-08-06] MEDS: ATORVASTATIN 40 MG TAB PO SCH (21:47)
[2022-08-06] MEDS: ENOXAPARIN INJ 40 MG/0.4 ML SYR SQ SCH (21:48)
--- NOTE | 2022-08-06 21:49 | Communication Note ---
Date of Service: August 06, 2022 Notified of soft BP 90/52. Reviewed chart, has hahd intermittently soft BPs. Monitor clinically for now, deferring fluids.
[2022-08-07] MEDS: TORSEMIDE 10 MG TAB PO SCH ×2 (05:57→12:49)
[2022-08-07] MEDS: LEVOTHYROXINE SODIUM 200 MCG TABLET PO SCH (05:57)
[2022-08-07] MEDS: Albuterol HFA 8 GM Inhaler (Combivent Respimat P&T Subs) INH SCH ×4 (07:59→19:03)
[2022-08-07] MEDS: Ipratropium HFA Inhaler (Combivent Respimat P&T Subs) INH SCH ×4 (07:59→19:03)
[2022-08-07] MEDS: PANTOprazole 40 MG TAB PO SCH ×2 (08:12→20:22)
[2022-08-07] MEDS: buPROPion SR 100 MG TABCR PO SCH ×2 (08:12→20:20)
[2022-08-07] MEDS: lisinopril 2.5 MG TAB PO SCH (08:12)
[2022-08-07] MEDS: POTASSIUM CHLORIDE CRTAB 20 MEQ TABCR PO SCH ×2 (08:12→20:30)
[2022-08-07] MEDS: SPIRONOLACTONE 25 MG TAB PO SCH (08:12)
[2022-08-07] MEDS: DOCUSATE SODIUM 100 MG CAP PO SCH ×2 (08:12→20:30)
[2022-08-07] MEDS: MULTIVITAMIN TAB PO SCH (08:13)
[2022-08-07] MEDS: METOPROLOL TARTRATE 25 MG TAB PO SCH ×2 (08:13→20:21)
[2022-08-07] MEDS: ISOSORBIDE MONO EXTENDED REL 60 MG TABCR PO SCH (08:13)
[2022-08-07] MEDS: ADVANCED PROBIOTIC 1250 MG CAPSULE PO SCH (08:13)
[2022-08-07] MEDS: DICLOFENAC SOD 1% GEL 100 GM TUBE EXT SCH ×4 (08:13→20:21)
[2022-08-07] MEDS: ASPIRIN 81 MG ECTAB PO SCH (08:13)
[2022-08-07] MEDS: FOLIC ACID 1 MG TAB PO SCH (08:13)
[2022-08-07] MEDS: TOPIRAMATE 100 MG TAB PO SCH ×2 (08:13→20:23)
[2022-08-07] MEDS: LANTUS PER UNIT CHARGE SQ SCH ×2 (08:50→20:42)
[2022-08-07] MEDS: INSULIN ASPART PER UNIT SC SCH ×4 (08:50→20:42)
--- NOTE | 2022-08-07 11:00 | Hospitalist Progress Note ---
Date of Service August 07, 2022 Assessment & Plan (1) Weakness: Plan: PT/OT eval and treat, current goal subacute rehab at SNF with knee pain, x ray shows poor healing of femur Right leg NWB Seen by Dr. Su, indicates that femur fx is not healed and will likely not heal further * Could bear some weight as tolerated - but leg will be unstable and put her at risk of falls * Transfer bed to wheelchair with assistance of a walker * Needs SNF w/ rehab in order to get her to safely transfer Can use Voltaren to R knee also (2) Chest pain: Plan: Remains Chest pain-free, of note patient with substantial pain relief using Voltaren and pain was reproducible on palpation yesterday No EKG findings consistent with ischemia. High-sensitivity troponin 7.5, stable No shortness of breath, Mucous plug versus anxiety with initial episode Patient doing well on medical surgical, pending SNF, her non weight bearing on right leg now maybe issue ISSUE RESOLVED (3) CKD (chronic kidney disease) stage 4, GFR 15-29 ml/min: Plan: Creatinine stable (4) Morbid obesity: Plan: An unfortunate root cause of much of her comorbidities (5) Type 2 diabetes mellitus: Plan: A1c 8.9, insulin management, pharmacy glycemic consult Empagliflozin held (6) Chronic respiratory failure: Plan: Stable. Probably predominantly OHS mediated (7) HTN (hypertension): Plan: - Blood pressure has been acceptable, continue meds (8) Hypoventilation associated with obesity: Plan: - Tracheostomy, clear, patient doing well - Discussed with patient regarding exchanging trach, not interested - Does follow up with [facility] regularly (9) Chronic diastolic congestive heart failure: Plan: with cor pulmonale and cad Continued on torsemide, spironolactone, metoprolol, lisinopril, isosorbide, atorvastatin, aspirin Plan DVT prophylaxis with Lovenox. Case management on consult to assist in dc planning. She is medically stable for discharge. Multiple referrals sent out and are pending. Dispo remains uncertain as she has multiple factors complicating facility's ability to care for patient given her need for bariatric bed + metal trach. No new changes made to her current plan. Will d/w Dr. Jensen. Admission and Anticipated Discharge Date Admission Date: July 25, 2022 Subjective Patient seen on daily rounds this morning. She is resting comfortably in bed, has no complaints. R leg pain is worse with movement, better at rest. Case management continues to work on SNF with rehab placement. Review of Systems Review of Systems: All systems reviewed and are unremarkable except as noted in HPI and below. Denies fever, chills, fatigue, headache, nasal congestion, sore throat, cough, chest pain, shortness of breath, palpitations, orthopnea, PND, abdominal pain, n/v/d, constipation, dysuria, hematuria, frequency, back pain, easy bruising or bleeding, skin lesions or rashes. Physical Exam Physical Exam: GENERAL: 67 yo morbidly obese WF. NAD. LUNGS: Clear to auscultation bilaterally. No W/R/R. metal trach noted. CARDIOVASCULAR: Regular rate and rhythm. ABDOMEN: Soft, non-tender and non-distended. BS normoactive x 4 quad. EXTREMITIES: No edema. Non-tender. Peripheral pulses +2/4. NEUROLOGIC: A&O x3. Nonfocal PSYCHIATRIC: Cooperative. Appropriate mood and affect. SKIN: Warm, dry, intact. No rashes or lesions. Results & Data Results & Data ([facility]) Vital Signs (Past 12 Hours) Vital Signs Temp Pulse Resp BP BP Pulse Ox O2 Del Method 08/07/22 07:59 82 20 99 Room Air 08/07/22 07:20 Trach Collar 08/07/22 07:14 36.4 C L 76 16 105/70 96 Room Air 08/07/22 04:44 74 107/65 98 08/07/22 01:48 90/51 L 97 Aerosol Mask 08/06/22 23:49 36.6 C 80 18 98/57 L 92 Room Air PG Care Time/CCT Total # of Minutes Spent Total Time Spent with Patient: Total time spent is greater than 50% in coordination of care (as documented) at patient's floor/unit and/or counseling patient: Coding Level of Care Code 44089 Subseq Hosp Care Lvl 1 Diagnoses Weakness R53.1 Chest pain R07.9 CKD (chronic kidney disease) stage 4, GFR 15-29 ml/min N18.4 Morbid obesity E66.01 Type 2 diabetes mellitus E11.9 Chronic respiratory failure J96.10 Respiratory failure complication: unspecified whether with hypoxia or hypercapnia HTN (hypertension) I10 Hypoventilation associated with obesity E66.2 Chronic diastolic congestive heart failure I50.32 (1) Chronic respiratory failure Respiratory failure complication: unspecified whether with hypoxia or hypercapnia Qualified Code(s): J96.10 - Chronic respiratory failure, unspecified whether with hypoxia or hypercapnia
[2022-08-07] MEDS: ATORVASTATIN 40 MG TAB PO SCH (20:19)
[2022-08-07] MEDS: ENOXAPARIN INJ 40 MG/0.4 ML SYR SQ SCH (20:21)
[2022-08-07] MEDS: MONTELUKAST SODIUM 10 MG TABLET PO SCH (20:22)
[2022-08-07] MEDS: oxyCODONE HCL IR 5 MG TAB (IMMEDIATE RELEASE) PO PRN (20:30)
[2022-08-08] MEDS: LEVOTHYROXINE SODIUM 200 MCG TABLET PO SCH (05:42)
[2022-08-08] MEDS: TORSEMIDE 10 MG TAB PO SCH ×2 (05:43→13:31)
[2022-08-08] MEDS: Albuterol HFA 8 GM Inhaler (Combivent Respimat P&T Subs) INH SCH ×4 (07:22→19:09)
[2022-08-08] MEDS: Ipratropium HFA Inhaler (Combivent Respimat P&T Subs) INH SCH ×4 (07:22→19:09)
[2022-08-08] MEDS: ADVANCED PROBIOTIC 1250 MG CAPSULE PO SCH (08:24)
[2022-08-08] MEDS: METOPROLOL TARTRATE 25 MG TAB PO SCH ×2 (08:24→19:55)
[2022-08-08] MEDS: ISOSORBIDE MONO EXTENDED REL 60 MG TABCR PO SCH (08:24)
[2022-08-08] MEDS: ASPIRIN 81 MG ECTAB PO SCH (08:24)
[2022-08-08] MEDS: DICLOFENAC SOD 1% GEL 100 GM TUBE EXT SCH ×4 (08:24→19:54)
[2022-08-08] MEDS: FOLIC ACID 1 MG TAB PO SCH (08:24)
[2022-08-08] MEDS: lisinopril 2.5 MG TAB PO SCH (08:24)
[2022-08-08] MEDS: TOPIRAMATE 100 MG TAB PO SCH ×2 (08:24→19:56)
[2022-08-08] MEDS: MULTIVITAMIN TAB PO SCH (08:25)
[2022-08-08] MEDS: PANTOprazole 40 MG TAB PO SCH ×2 (08:25→19:56)
[2022-08-08] MEDS: buPROPion SR 100 MG TABCR PO SCH ×2 (08:25→19:53)
[2022-08-08] MEDS: SPIRONOLACTONE 25 MG TAB PO SCH (08:26)
[2022-08-08] MEDS: LANTUS PER UNIT CHARGE SQ SCH ×2 (08:46→20:54)
[2022-08-08] MEDS: POTASSIUM CHLORIDE CRTAB 20 MEQ TABCR PO SCH ×2 (08:46→20:11)
[2022-08-08] MEDS: INSULIN ASPART PER UNIT SC SCH ×4 (08:46→20:55)
[2022-08-08] MEDS: DOCUSATE SODIUM 100 MG CAP PO SCH ×2 (08:46→20:11)
--- NOTE | 2022-08-08 10:57 | Hospitalist Progress Note ---
Date of Service August 08, 2022 Assessment & Plan (1) Weakness: Plan: PT/OT eval and treat, current goal subacute rehab at SNF with knee pain, x ray shows poor healing of femur Right leg NWB Seen by Dr. Su, indicates that femur fx is not healed and will likely not heal further * Could bear some weight as tolerated - but leg will be unstable and put her at risk of falls * Transfer bed to wheelchair with assistance of a walker * Needs SNF w/ rehab in order to get her to safely transfer Can use Voltaren to R knee also (2) Chest pain: Plan: Remains Chest pain-free, of note patient with substantial pain relief using Voltaren and pain was reproducible on palpation yesterday No EKG findings consistent with ischemia. High-sensitivity troponin 7.5, stable No shortness of breath, Mucous plug versus anxiety with initial episode Patient doing well on medical surgical, pending SNF, her non weight bearing on right leg now maybe issue ISSUE RESOLVED (3) CKD (chronic kidney disease) stage 4, GFR 15-29 ml/min: Plan: Creatinine stable (4) Morbid obesity: Plan: An unfortunate root cause of much of her comorbidities (5) Type 2 diabetes mellitus: Plan: A1c 8.9, insulin management, pharmacy glycemic consult Empagliflozin held (6) Chronic respiratory failure: Plan: Stable. Probably predominantly OHS mediated (7) HTN (hypertension): Plan: - Blood pressure has been acceptable, continue meds (8) Hypoventilation associated with obesity: Plan: - Tracheostomy, clear, patient doing well - Discussed with patient regarding exchanging trach, not interested - Does follow up with [facility] regularly (9) Chronic diastolic congestive heart failure: Plan: with cor pulmonale and cad Continued on torsemide, spironolactone, metoprolol, lisinopril, isosorbide, atorvastatin, aspirin Plan DVT prophylaxis with Lovenox. Case management on consult to assist in dc planning. She is medically stable for discharge. Multiple referrals sent out and are pending. Dispo remains uncertain as she has multiple factors complicating facility's ability to care for patient given her need for bariatric bed + metal trach. No new changes made to her current plan. Will d/w Dr. Jensen. Admission and Anticipated Discharge Date Admission Date: July 25, 2022 Subjective Patient seen on daily rounds this morning. She is resting comfortably in bed, has no complaints. Case management continues to work on SNF with rehab placement. Review of Systems Review of Systems: All systems reviewed and are unremarkable except as noted in HPI and below. Denies fever, chills, fatigue, headache, nasal congestion, sore throat, cough, chest pain, shortness of breath, palpitations, orthopnea, PND, abdominal pain, n/v/d, constipation, dysuria, hematuria, frequency, back pain, easy bruising or bleeding, skin lesions or rashes. Physical Exam Physical Exam: GENERAL: 67 yo morbidly obese WF. NAD. LUNGS: Clear to auscultation bilaterally. No W/R/R. metal trach noted. CARDIOVASCULAR: Regular rate and rhythm. ABDOMEN: Soft, non-tender and non-distended. BS normoactive x 4 quad. EXTREMITIES: No edema. Non-tender. Peripheral pulses +2/4. NEUROLOGIC: A&O x3. Nonfocal PSYCHIATRIC: Cooperative. Appropriate mood and affect. SKIN: Warm, dry, intact. No rashes or lesions. Results & Data Results & Data ([facility]) Vital Signs (Past 12 Hours) Vital Signs Temp Pulse Resp BP Pulse Ox O2 Del Method 08/08/22 08:30 Room Air 08/08/22 07:30 36.5 C 73 16 120/66 96 Room Air 08/08/22 07:22 81 18 96 Room Air 08/08/22 03:05 22 Room Air PG Care Time/CCT Total # of Minutes Spent Total Time Spent with Patient: Total time spent is greater than 50% in coordination of care (as documented) at patient's floor/unit and/or counseling patient: Coding Level of Care Code 86038 Subseq Hosp Care Lvl 1 Diagnoses Weakness R53.1 Chest pain R07.9 CKD (chronic kidney disease) stage 4, GFR 15-29 ml/min N18.4 Morbid obesity E66.01 Type 2 diabetes mellitus E11.9 Chronic respiratory failure J96.10 Respiratory failure complication: unspecified whether with hypoxia or hypercapnia HTN (hypertension) I10 Hypoventilation associated with obesity E66.2 Chronic diastolic congestive heart failure I50.32 (1) Chronic respiratory failure Respiratory failure complication: unspecified whether with hypoxia or hypercapnia Qualified Code(s): J96.10 - Chronic respiratory failure, unspecified whether with hypoxia or hypercapnia
[2022-08-08] MEDS: ACETAMINOPHEN 500 MG TAB PO PRN (12:21)
[2022-08-08] MEDS: oxyCODONE HCL IR 5 MG TAB (IMMEDIATE RELEASE) PO PRN ×2 (16:45→23:13)
[2022-08-08] MEDS: ATORVASTATIN 40 MG TAB PO SCH (19:53)
[2022-08-08] MEDS: ENOXAPARIN INJ 40 MG/0.4 ML SYR SQ SCH (19:54)
[2022-08-08] MEDS: MONTELUKAST SODIUM 10 MG TABLET PO SCH (19:56)
[2022-08-09] MEDS: LEVOTHYROXINE SODIUM 200 MCG TABLET PO SCH (05:56)
[2022-08-09] MEDS: TORSEMIDE 10 MG TAB PO SCH ×2 (05:56→13:02)
[2022-08-09] MEDS: Ipratropium HFA Inhaler (Combivent Respimat P&T Subs) INH SCH ×4 (06:11→19:55)
[2022-08-09] MEDS: Albuterol HFA 8 GM Inhaler (Combivent Respimat P&T Subs) INH SCH ×4 (06:12→19:55)
[2022-08-09 07:29] LABS: Creatinine Clr Calc Pharmacy 38.9 ml/min; Est GFR (African American) 30.7 ml/min; Est GFR (Non-African American) 26.5 ml/min
[2022-08-09] MEDS: buPROPion SR 100 MG TABCR PO SCH ×2 (08:29→20:53)
[2022-08-09] MEDS: lisinopril 2.5 MG TAB PO SCH (08:29)
[2022-08-09] MEDS: METOPROLOL TARTRATE 25 MG TAB PO SCH ×2 (08:29→20:56)
[2022-08-09] MEDS: ISOSORBIDE MONO EXTENDED REL 60 MG TABCR PO SCH (08:29)
[2022-08-09] MEDS: FOLIC ACID 1 MG TAB PO SCH (08:29)
[2022-08-09] MEDS: ADVANCED PROBIOTIC 1250 MG CAPSULE PO SCH (08:29)
[2022-08-09] MEDS: ASPIRIN 81 MG ECTAB PO SCH (08:29)
[2022-08-09] MEDS: MULTIVITAMIN TAB PO SCH (08:30)
[2022-08-09] MEDS: SPIRONOLACTONE 25 MG TAB PO SCH (08:30)
[2022-08-09] MEDS: DICLOFENAC SOD 1% GEL 100 GM TUBE EXT SCH ×4 (08:30→20:53)
[2022-08-09] MEDS: TOPIRAMATE 100 MG TAB PO SCH ×2 (08:30→20:58)
[2022-08-09] MEDS: PANTOprazole 40 MG TAB PO SCH ×2 (08:30→20:57)
[2022-08-09] MEDS: INSULIN ASPART PER UNIT SC SCH ×4 (09:31→21:04)
[2022-08-09] MEDS: LANTUS PER UNIT CHARGE SQ SCH ×2 (09:32→20:55)
[2022-08-09] MEDS: DOCUSATE SODIUM 100 MG CAP PO SCH ×2 (09:33→20:54)
[2022-08-09] MEDS: POTASSIUM CHLORIDE CRTAB 20 MEQ TABCR PO SCH ×2 (09:33→20:54)
[2022-08-09] MEDS: oxyCODONE HCL IR 5 MG TAB (IMMEDIATE RELEASE) PO PRN ×2 (10:25→20:54)
--- NOTE | 2022-08-09 11:29 | Hospitalist Progress Note ---
Date of Service August 09, 2022 Assessment & Plan (1) Weakness: Plan: PT/OT eval and treat, current goal subacute rehab at SNF with knee pain, x ray shows poor healing of femur Right leg NWB Seen by Dr. Su, indicates that femur fx is not healed and will likely not heal further * Could bear some weight as tolerated - but leg will be unstable and put her at risk of falls * Transfer bed to wheelchair with assistance of a walker * Needs SNF w/ rehab in order to get her to safely transfer Can use Voltaren to R knee also (2) Chest pain: Plan: Remains Chest pain-free, of note patient with substantial pain relief using Voltaren and pain was reproducible on palpation yesterday No EKG findings consistent with ischemia. High-sensitivity troponin 7.5, stable No shortness of breath, Mucous plug versus anxiety with initial episode Patient doing well on medical surgical, pending SNF, her non weight bearing on right leg now maybe issue ISSUE RESOLVED (3) CKD (chronic kidney disease) stage 4, GFR 15-29 ml/min: Plan: Creatinine stable (4) Morbid obesity: Plan: An unfortunate root cause of much of her comorbidities (5) Type 2 diabetes mellitus: Plan: A1c 8.9, insulin management, pharmacy glycemic consult Empagliflozin held (6) Chronic respiratory failure: Plan: Stable. Probably predominantly OHS mediated (7) HTN (hypertension): Plan: - Blood pressure has been acceptable, continue meds (8) Hypoventilation associated with obesity: Plan: - Tracheostomy, clear, patient doing well - Discussed with patient regarding exchanging trach, not interested - Does follow up with [facility] regularly (9) Chronic diastolic congestive heart failure: Plan: with cor pulmonale and cad Continued on torsemide, spironolactone, metoprolol, lisinopril, isosorbide, atorvastatin, aspirin Plan DVT prophylaxis with Lovenox. Case management on consult to assist in dc planning. She is medically stable for discharge. Multiple referrals sent out and are pending. Dispo remains uncertain as she has multiple factors complicating facility's ability to care for patient given her need for bariatric bed + metal trach. No new changes made to her current plan. Will d/w Dr. Jensen. Admission and Anticipated Discharge Date Admission Date: July 25, 2022 Subjective Patient seen on daily rounds this morning. Case management continues to work on SNF with rehab placement. Pt mentions discomfort at site where prior IV was taken out from her L arm. Also mentioned that she is having leg pain even at rest presently but hasn't requested any pain meds from her nurse yet this morning. No other complaints. Review of Systems Review of Systems: All systems reviewed and are unremarkable except as noted in HPI and below. Denies fever, chills, fatigue, headache, nasal congestion, sore throat, cough, chest pain, shortness of breath, palpitations, orthopnea, PND, abdominal pain, n/v/d, constipation, dysuria, hematuria, frequency, back pain, easy bruising or bleeding, skin lesions or rashes. Physical Exam Physical Exam: GENERAL: 67 yo morbidly obese WF. NAD. LUNGS: Clear to auscultation bilaterally. No W/R/R. metal trach noted. CARDIOVASCULAR: Regular rate and rhythm. ABDOMEN: Soft, non-tender and non-distended. BS normoactive x 4 quad. EXTREMITIES: No edema. Non-tender. Peripheral pulses +2/4. NEUROLOGIC: A&O x3. Nonfocal PSYCHIATRIC: Cooperative. Appropriate mood and affect. SKIN: Warm, dry, intact. No rashes or lesions. Results & Data Results & Data ([facility]) Vital Signs (Past 12 Hours) Vital Signs Temp Pulse Resp BP Pulse Ox O2 Del Method 08/09/22 10:51 74 18 94 Room Air 08/09/22 09:12 Room Air 08/09/22 08:25 36.5 C 68 16 114/58 L 95 Trach Collar 08/09/22 06:12 75 20 93 Room Air PG Care Time/CCT Total # of Minutes Spent Total Time Spent with Patient: Total time spent is greater than 50% in coordination of care (as documented) at patient's floor/unit and/or counseling patient: Coding Level of Care Code 27726 Subseq Hosp Care Lvl 1 Diagnoses Weakness R53.1 Chest pain R07.9 CKD (chronic kidney disease) stage 4, GFR 15-29 ml/min N18.4 Morbid obesity E66.01 Type 2 diabetes mellitus E11.9 Chronic respiratory failure J96.10 Respiratory failure complication: unspecified whether with hypoxia or hypercapnia HTN (hypertension) I10 Hypoventilation associated with obesity E66.2 Chronic diastolic congestive heart failure I50.32 (1) Chronic respiratory failure Respiratory failure complication: unspecified whether with hypoxia or hypercapnia Qualified Code(s): J96.10 - Chronic respiratory failure, unspecified whether with hypoxia or hypercapnia
--- NOTE | 2022-08-09 13:00 | Pharmacy Report ---
Pharmacy Glycemic Short Note 2 - Date of Service August 09, 2022 - Glycemic Short BSG Results (Last 24 hours): 08/08/22 08/08/22 08/09/22 17:00 20:25 08:10 POC Glucose 219 H 221 H 129 H 08/09/22 11:55 POC Glucose 183 H OUTPATIENT ANTIDIABETIC REGIMEN: * Jardiance 25mg PO daily * Patient on insulin pump in the past (Basal rate 6 units/hr, bolus with 50 units TID meals -- approx 200 units per day) * A1c 8.5% 03/24/22 ASSESSMENT: * No changes have been made to patient's insulin regimen for the past several days. Pt has been requiring ~200 units of insulin per day, with relatively stable BSGs. * Last evening, BSGs were somewhat elevated. If this becomes a trend, will consider tightening Novolog parameters. * Will continue to follow and adjust regimen as indicated. PLAN FOR INPATIENT GLYCEMIC CONTROL: * Hold outpatient oral diabetes medications * Basal insulin * Lantus 55 units SC BID * Bolus insulin * NovoLog per scale ACHS or Q6hrs while NPO * Goal Range: Low 110 mg/dL - High 140 mg/dL * Correction Factor: 6 mg/dL/unit at breakfast and 8 mg/dl/units at lunch, dinner and HS * Nutritional / Prandial insulin per carb ratio of 1 unit per 1.5 grams CHO consumed at breakfast, 1 unit per 2.5 grams CHO consumed at lunch, dinner and HS
[2022-08-09] MEDS: ATORVASTATIN 40 MG TAB PO SCH (20:53)
[2022-08-09] MEDS: ENOXAPARIN INJ 40 MG/0.4 ML SYR SQ SCH (20:55)
[2022-08-09] MEDS: MONTELUKAST SODIUM 10 MG TABLET PO SCH (20:57)
[2022-08-10] MEDS: TORSEMIDE 10 MG TAB PO SCH ×2 (05:47→13:55)
[2022-08-10] MEDS: LEVOTHYROXINE SODIUM 200 MCG TABLET PO SCH (05:47)
[2022-08-10] MEDS: Albuterol HFA 8 GM Inhaler (Combivent Respimat P&T Subs) INH SCH ×4 (07:18→20:56)
[2022-08-10] MEDS: Ipratropium HFA Inhaler (Combivent Respimat P&T Subs) INH SCH ×4 (07:18→20:55)
[2022-08-10] MEDS: ASPIRIN 81 MG ECTAB PO SCH (08:53)
[2022-08-10] MEDS: TOPIRAMATE 100 MG TAB PO SCH ×2 (08:53→21:09)
[2022-08-10] MEDS: METOPROLOL TARTRATE 25 MG TAB PO SCH ×2 (08:53→21:19)
[2022-08-10] MEDS: PANTOprazole 40 MG TAB PO SCH ×2 (08:53→21:11)
[2022-08-10] MEDS: MULTIVITAMIN TAB PO SCH (08:53)
[2022-08-10] MEDS: lisinopril 2.5 MG TAB PO SCH (08:53)
[2022-08-10] MEDS: ISOSORBIDE MONO EXTENDED REL 60 MG TABCR PO SCH (08:54)
[2022-08-10] MEDS: ADVANCED PROBIOTIC 1250 MG CAPSULE PO SCH (08:54)
[2022-08-10] MEDS: SPIRONOLACTONE 25 MG TAB PO SCH (08:54)
[2022-08-10] MEDS: buPROPion SR 100 MG TABCR PO SCH ×2 (08:54→21:10)
[2022-08-10] MEDS: FOLIC ACID 1 MG TAB PO SCH (08:54)
[2022-08-10] MEDS: LANTUS PER UNIT CHARGE SQ SCH ×2 (09:01→21:05)
[2022-08-10] MEDS: INSULIN ASPART PER UNIT SC SCH ×4 (09:02→21:05)
[2022-08-10] MEDS: DICLOFENAC SOD 1% GEL 100 GM TUBE EXT SCH ×4 (09:04→21:08)
[2022-08-10] MEDS: POTASSIUM CHLORIDE CRTAB 20 MEQ TABCR PO SCH ×2 (10:26→21:40)
[2022-08-10] MEDS: DOCUSATE SODIUM 100 MG CAP PO SCH ×2 (10:26→21:08)
--- NOTE | 2022-08-10 11:42 | Hospitalist Progress Note ---
Date of Service August 10, 2022 Assessment & Plan (1) Weakness: Plan: PT/OT eval and treat, current goal subacute rehab at SNF with knee pain, x ray shows poor healing of femur Right leg NWB Seen by Dr. Su, indicates that femur fx is not healed and will likely not heal further * Could bear some weight as tolerated - but leg will be unstable and put her at risk of falls * Transfer bed to wheelchair with assistance of a walker * Needs SNF w/ rehab in order to get her to safely transfer Can use Voltaren to R knee also (2) Chest pain: Plan: Remains Chest pain-free, of note patient with substantial pain relief using Voltaren and pain was reproducible on palpation yesterday No EKG findings consistent with ischemia. High-sensitivity troponin 7.5, stable No shortness of breath, Mucous plug versus anxiety with initial episode Patient doing well on medical surgical, pending SNF, her non weight bearing on right leg now maybe issue ISSUE RESOLVED (3) CKD (chronic kidney disease) stage 4, GFR 15-29 ml/min: Plan: - Creatinine stable - Stat BMP today - Consult nephrology as per pt request - Could consider adding flomax d/t her urinary hesitancy (4) Morbid obesity: Plan: An unfortunate root cause of much of her comorbidities (5) Type 2 diabetes mellitus: Plan: A1c 8.9, insulin management, pharmacy glycemic consult Empagliflozin held (6) Chronic respiratory failure: Plan: Stable. Probably predominantly OHS mediated (7) HTN (hypertension): Plan: - Blood pressure has been acceptable, continue meds (8) Hypoventilation associated with obesity: Plan: - Tracheostomy, clear, patient doing well - Discussed with patient regarding exchanging trach, not interested - Does follow up with [facility] regularly (9) Chronic diastolic congestive heart failure: Plan: with cor pulmonale and cad Continued on torsemide, spironolactone, metoprolol, lisinopril, isosorbide, atorvastatin, aspirin Plan DVT prophylaxis with Lovenox. Case management on consult to assist in dc planning. She is medically stable for discharge. Multiple referrals sent out and are pending. Dispo remains uncertain as she has multiple factors complicating facility's ability to care for patient given her need for bariatric bed + metal trach. Labs today and consult nephrology. Will d/w Dr. Jensen. Admission and Anticipated Discharge Date Admission Date: July 25, 2022 Subjective Patient seen on daily rounds this morning. Case management continues to work on SNF with rehab placement. This morning she notes she is having some urinary hesitancy. Concerned about her kidneys and is requesting to see nephrology while she is here. Follows with Dr. Drew as an outpatient and was scheduled to see him last month but has been in and out of the hospital and didn't make that appointment. Review of Systems Review of Systems: All systems reviewed and are unremarkable except as noted in HPI and below. Denies fever, chills, fatigue, headache, nasal congestion, sore throat, cough, chest pain, shortness of breath, palpitations, orthopnea, PND, abdominal pain, n/v/d, constipation, dysuria, hematuria, frequency, back pain, easy bruising or bleeding, skin lesions or rashes. Physical Exam Physical Exam: GENERAL: 67 yo morbidly obese WF. NAD. LUNGS: Clear to auscultation bilaterally. No W/R/R. metal trach noted. CARDIOVASCULAR: Regular rate and rhythm. ABDOMEN: Soft, non-tender and non-distended. BS normoactive x 4 quad. EXTREMITIES: No edema. Non-tender. Peripheral pulses +2/4. NEUROLOGIC: A&O x3. Nonfocal PSYCHIATRIC: Cooperative. Appropriate mood and affect. SKIN: Warm, dry, intact. No rashes or lesions. Results & Data Results & Data ([facility]) Vital Signs (Past 12 Hours) Vital Signs Temp Pulse Resp BP Pulse Ox O2 Del Method FiO2 08/10/22 11:18 71 18 98 Room Air 21 08/10/22 07:27 36.4 C L 64 16 101/63 94 Room Air 08/10/22 07:23 62 14 95 Room Air 21 PG Care Time/CCT Total # of Minutes Spent Total Time Spent with Patient: Total time spent is greater than 50% in coordination of care (as documented) at patient's floor/unit and/or counseling patient: Coding Level of Care Code 02757 Subseq Hosp Care Lvl 2 Diagnoses Weakness R53.1 Chest pain R07.9 CKD (chronic kidney disease) stage 4, GFR 15-29 ml/min N18.4 Morbid obesity E66.01 Type 2 diabetes mellitus E11.9 Chronic respiratory failure J96.10 Respiratory failure complication: unspecified whether with hypoxia or hypercapnia HTN (hypertension) I10 Hypoventilation associated with obesity E66.2 Chronic diastolic congestive heart failure I50.32 (1) Chronic respiratory failure Respiratory failure complication: unspecified whether with hypoxia or hypercapnia Qualified Code(s): J96.10 - Chronic respiratory failure, unspecified whether with hypoxia or hypercapnia
[2022-08-10 13:31] LABS: BUN Creatinine Ratio 27.8 (10-20); Calcium 9.2 mg/dl (8.5-10.1); Creatinine Clr Calc Pharmacy 41.7 ml/min; Est GFR (African American) 33.4 ml/min; Est GFR (Non-African American) 28.8 ml/min; Potassium 4.5 mmol/L (3.5-5.1)
--- NOTE | 2022-08-10 14:19 | Nephrology Consultation ---
Date of Consultation August 10, 2022 Assessment & Plan (1) CKD (chronic kidney disease) stage 4, GFR 15-29 ml/min: (2) Morbid obesity: (3) Insulin-requiring or dependent type II diabetes mellitus: (4) HTN (hypertension): Plan 67-year-old female with stage IIIB/4 CKD in the setting of morbid obesity, hypertension, diabetes, baseline creatinine 1.5-1.8, low-grade proteinuria. Admitted with ambulatory dysfunction now waiting for rehab placement after prolonged rehab hospitalization near [place] status post femur fracture and surgery in March 2022. Renal function staying relatively stable, electrolyte, volume status, blood pressure acceptable. She complained of some hesitancy or incomplete voiding however no sign of volume overload, bladder distension. -- Okay to continue on current dose of torsemide and spironolactone. If patient continued to feel incomplete voiding, suggest checking postvoid residual and Urology evaluation if needed. -- Advised to keep well hydrated, although there is some variability in creatinine, overall renal function is relatively stable and decent, electrolyte acceptable. -- No other recommendation at this time, suggest monitoring renal function while inpatient as there is slight trend in worsening in creatinine, would check renal panel in a.m. will follow. Thank you for allowing me to participate in your patient's care. It was a pleasure to see Whit. History of Present Illness Reason for Consultation: Stage IIIB CKD. Attending Physician: Gregory Jensen MD History of Present Illness Whit Connelly is a very pleasant 67-year-old F with fast past medical history significant for stage IIIB CKD, hypertension, diabetes, morbid obesity admitted to the hospital with ambulatory dysfunction. nephrology consult was requested for management of CKD. EMR records are reviewed in detail during patient's visit. Whit was admitted to hospital more than 10 days ago with ambulatory dysfunction, currently she is waiting for rehab/long-term care facility placement. She had a femur fracture in March when she presented to [facility] but transferred to [facility] for surgery, and then she was transferred from [facility] to a rehab in [place] until recently. She was discharged home with a plan for home health and her daughter to help care for her. When she made it home in her driveway her legs were too weak to stand and she fell in the driveway. She also became short of breath and subsequently had chest painalthough she notes all of this was alleviated when her trach was suctioned. she has been getting physical therapy in the hospital with a plan to eventually get discharged to rehab and long-term care facility, currently waiting. Has stage IIIB CKD in the setting of hypertension, diabetes, morbid obesity, baseline creatinine has been 1.5-1.8, has low-grade proteinuria. renal function has been staying relatively stable with some variability, creatinine was 1.9. Electrolyte acceptable. She has been on torsemide 30 mg daily for years, volume status seems to be stable. However, she complain of having feeling of incomplete voiding that has been happening over last few months although eventually she is able to void. Denies shortness of breath or lower extremity edema. Denies fullness in lower abdomen. No nausea, anorexia, abdominal pain or diarrhea. Has complicated past medical history with multiple significant comorbidities including morbid obesity, metabolic syndrome, hypertension, diabetes, GERD, tracheostomy in place. Allergies Allergy/AdvReac Type Severity Reaction Status Date / Time Penicillins Allergy Intermediate Hives Verified 07/24/22 18:18 amitriptyline Allergy Unknown Unknown Verified 07/24/22 18:18 doxycycline Allergy Unknown Unknown Verified 07/24/22 18:18 guaifenesin Allergy Unknown Unknown Verified 07/24/22 18:18 metformin Allergy Unknown Unknown Verified 07/24/22 18:18 phenylephrine Allergy Unknown Unknown Verified 07/24/22 18:18 pseudoephedrine Allergy Unknown Unknown Verified 07/24/22 18:18 tetracycline Allergy Unknown Unknown Verified 07/24/22 18:18 venlafaxine [From Effexor] Allergy Unknown Unknown Verified 07/24/22 18:18 gabapentin AdvReac Intermediate BECOMES Verified 07/24/22 18:18 AGGRESSIVE Home Medications Medication Instructions Recorded Confirmed Type aspirin 81 mg tablet,delayed 81 mg PO QAM 04/06/19 07/24/22 History release (Robert Low Dose Aspirin) bupropion HCl 100 mg tablet,12 hr See Rx Instructions .Route .COMPLEX 04/06/19 07/24/22 History sustained-release docusate sodium 100 mg capsule 100 mg PO BID 04/06/19 07/24/22 History isosorbide mononitrate 60 mg 60 mg PO QAM 04/06/19 07/24/22 History tablet,extended release 24 hr metoprolol tartrate 25 mg tablet 12.5 mg PO BID 04/06/19 07/24/22 History multivitamin 1 tab PO QAM 04/06/19 07/24/22 History pantoprazole 40 mg tablet,delayed 40 mg PO QAM 04/06/19 07/24/22 History release spironolactone 25 mg tablet 25 mg PO QAM 04/06/19 07/24/22 History topiramate 100 mg tablet See Rx Instructions .Route .COMPLEX 04/06/19 07/24/22 History Oxygen Home #1 ea 06/28/19 03/22/22 History nitroglycerin 0.4 mg sublingual 0.4 mg sublingual DIRECTED PRN 06/28/19 07/24/22 History tablet Chest Pain nebulizers #1 ea 12/24/20 03/22/22 Rx betamethasone dipropionate 0.05 % 1 applic topical BID PRN Skin 02/27/21 07/24/22 History topical cream Irritation ipratropium 0.5 mg-albuterol 3 mg 3 ml inhalation Q4H PRN COUGHING, 02/27/21 07/24/22 History (2.5 mg base)/3 mL nebulization WHEEZING, SHORTNESS OF BREATH soln lisinopril 2.5 mg tablet 2.5 mg PO QAM 02/27/21 07/24/22 History potassium chloride 10 mEq 20 meq PO AMPM 02/27/21 07/24/22 History tablet,extended release folic acid 1 mg tablet 1 mg PO QAM #0 tabs 04/19/21 07/24/22 Rx subcutaneous insulin pump (MiniMed #1 ea 05/11/21 03/22/22 History 630G Insulin Pump) lorazepam 1 mg tablet (Ativan) 1 mg PO Q8H PRN Anxiety 08/20/21 07/24/22 History blood sugar diagnostic (Contour #300 ea 09/29/21 03/22/22 Rx Next Test Strips) albuterol sulfate 90 mcg/actuation 2 puff inhalation Q4 PRN Shortness 11/25/21 07/24/22 History aerosol inhaler Of Breath ipratropium 20 mcg-albuterol 100 1 puff inhalation QID 11/25/21 07/24/22 History mcg/actuation mist for inhalation (Combivent Respimat) atorvastatin 40 mg tablet 40 mg PO QPM #90 tabs 01/14/22 07/24/22 Rx montelukast 10 mg tablet 10 mg PO QPM #30 tabs 01/28/22 07/24/22 Rx (Singulair) acetaminophen 500 mg tablet 500 mg PO QPM 03/23/22 07/24/22 History (Tylenol Extra Strength) acidophilus 100 million 1 cap PO DAILY 03/23/22 07/24/22 History cell-pectin, citrus 10 mg capsule empagliflozin 25 mg tablet 25 mg PO DAILY 03/23/22 07/24/22 History (Jardiance) hydrogen peroxide 3 % solution 1 applic topical DIRECTED PRN 03/23/22 07/24/22 History TRACH [facility] insulin lispro 100 unit/mL 0 unit subcut USEASDIRECTD 03/23/22 07/24/22 History subcutaneous solution (Humalog U-100 Insulin) levothyroxine 200 mcg tablet 200 mcg PO DAILYBB 03/23/22 07/24/22 History torsemide 10 mg tablet 10 mg PO BID 07/24/22 07/24/22 History Patient History Medical History Ambulatory dysfunction Anxiety Breathlessness Bronchiectasis Chest pain CHF (congestive heart failure) Chronic respiratory failure CKD (chronic kidney disease), stage III COPD (chronic obstructive pulmonary disease) DM type 2 (diabetes mellitus, type 2) Dyslipidemia Fluid overload HTN (hypertension) Hypoventilation associated with obesity Insulin-requiring or dependent type II diabetes mellitus Migraine Morbid obesity MRSA (methicillin resistant staph aureus) culture positive "sputum 11/2015" Right ventricular dysfunction Sepsis Tracheostomy in place Surgical History History of appendectomy History of cholecystectomy History of hysterectomy History of tonsillectomy and adenoidectomy S/P IVC filter Family History Mother Coronary heart disease COPD (chronic obstructive pulmonary disease) Father Suicide Hung himself. Pt found him. Unknown Lung cancer Social History Smoking Status: Never smoker Second Hand Exposure: No; Hx Alcohol Use: No Hx Substance Use: No Preferred Language: [place] Communication Ability: Effective Visual Impairment: Limited Vulnerability Assessment Analyst Required: No Beliefs That Will Affect Care: None marital status: Current Living Situation: Family Current Living Situation Comment: at home with daughter current occupational status: disabled Other Information That Helps Us Care for You: No Feels Safe at Home: Yes Safety Concerns: Feels Safe At This Time Assistive Devices: Glasses Review of Systems Review of Systems: detailed review of system was done and pertinent positive and negatives are mentioned in HPI. Physical Exam Constitutional: WD/WN, vitals as above + morbidly obese; no acute distress Eyes: + anicteric sclerae ENMT: Ears: no hearing impairment Neck: + tracheostomy present Respiratory: no respiratory distress Auscultation: lungs clear to auscultation bilaterally Cardiovascular: RRR, no murmur, no edema Gastrointestinal (Abdomen): Percussion/Palpation: abdomen soft; abdomen nontender Musculoskeletal: Extremities: extremities normal to inspection Skin: no rashes Neurologic: no focal motor deficits Psychiatric: Orientation: alert and oriented x 3 Affect: euthymic affect Results & Data ([facility]) Vital Signs (Past 12 Hours) Vital Signs Temp Pulse Resp BP Pulse Ox O2 Del Method FiO2 08/10/22 11:18 71 18 98 Room Air 21 08/10/22 07:27 36.4 C L 64 16 101/63 94 Room Air 08/10/22 07:23 62 14 95 Room Air 21 PG Care Time/CCT Total # of Minutes Spent Total Time Spent with Patient: Total time spent is greater than 50% in coordination of care (as documented) at patient's floor/unit and/or counseling patient: Coding Level of Care Code 42143 Initial Inpt Care Lvl 3 Diagnoses CKD (chronic kidney disease) stage 4, GFR 15-29 ml/min N18.4 Morbid obesity E66.01 Insulin-requiring or dependent type II diabetes mellitus E11.9; Z79.4 HTN (hypertension) I10
[2022-08-10] MEDS: ENOXAPARIN INJ 40 MG/0.4 ML SYR SQ SCH (21:07)
[2022-08-10] MEDS: oxyCODONE HCL IR 5 MG TAB (IMMEDIATE RELEASE) PO PRN (21:07)
[2022-08-10] MEDS: ATORVASTATIN 40 MG TAB PO SCH (21:09)
[2022-08-10] MEDS: MONTELUKAST SODIUM 10 MG TABLET PO SCH (21:09)
[2022-08-11] MEDS: LEVOTHYROXINE SODIUM 200 MCG TABLET PO SCH (05:43)
[2022-08-11] MEDS: TORSEMIDE 10 MG TAB PO SCH ×2 (06:08→13:01)
[2022-08-11] MEDS: oxyCODONE HCL IR 5 MG TAB (IMMEDIATE RELEASE) PO PRN ×3 (06:10→20:37)
[2022-08-11] MEDS: Albuterol HFA 8 GM Inhaler (Combivent Respimat P&T Subs) INH SCH ×4 (07:05→19:36)
[2022-08-11] MEDS: Ipratropium HFA Inhaler (Combivent Respimat P&T Subs) INH SCH ×4 (07:06→19:36)
[2022-08-11] MEDS: LANTUS PER UNIT CHARGE SQ SCH ×2 (09:34→20:34)
[2022-08-11] MEDS: INSULIN ASPART PER UNIT SC SCH ×4 (09:34→20:34)
[2022-08-11] MEDS: POTASSIUM CHLORIDE CRTAB 20 MEQ TABCR PO SCH ×2 (09:36→20:37)
[2022-08-11] MEDS: FOLIC ACID 1 MG TAB PO SCH (09:36)
[2022-08-11] MEDS: PANTOprazole 40 MG TAB PO SCH ×2 (09:36→20:38)
[2022-08-11] MEDS: SPIRONOLACTONE 25 MG TAB PO SCH (09:36)
[2022-08-11] MEDS: ADVANCED PROBIOTIC 1250 MG CAPSULE PO SCH (09:37)
[2022-08-11] MEDS: MULTIVITAMIN TAB PO SCH (09:37)
[2022-08-11] MEDS: buPROPion SR 100 MG TABCR PO SCH ×2 (09:37→20:38)
[2022-08-11] MEDS: DICLOFENAC SOD 1% GEL 100 GM TUBE EXT SCH ×4 (09:37→20:40)
[2022-08-11] MEDS: ASPIRIN 81 MG ECTAB PO SCH (09:37)
[2022-08-11] MEDS: TOPIRAMATE 100 MG TAB PO SCH ×2 (09:37→20:39)
[2022-08-11] MEDS: ISOSORBIDE MONO EXTENDED REL 60 MG TABCR PO SCH (09:41)
[2022-08-11] MEDS: DOCUSATE SODIUM 100 MG CAP PO SCH ×2 (09:44→20:41)
[2022-08-11] MEDS: lisinopril 2.5 MG TAB PO SCH (09:46)
[2022-08-11] MEDS: METOPROLOL TARTRATE 25 MG TAB PO SCH ×2 (09:46→20:27)
--- NOTE | 2022-08-11 10:36 | Nephrology Progress Note ---
Date of Service August 11, 2022 Assessment & Plan (1) CKD stage 4 due to type 2 diabetes mellitus: (2) Morbid obesity: (3) Insulin-requiring or dependent type II diabetes mellitus: (4) HTN (hypertension): Plan 67-year-old female with stage IIIB/4 CKD in the setting of morbid obesity, hypertension, diabetes, baseline creatinine 1.5-1.8, low-grade proteinuria. Admitted with ambulatory dysfunction now waiting for rehab placement after prolonged rehab hospitalization near [place] status post femur fracture and surgery in March 2022. Renal function staying relatively stable, electrolyte, volume status, blood pressure acceptable. -- Advised to keep well hydrated, although there is some variability in creatinine, overall renal function is relatively stable and decent, electrolyte acceptable. -- No other recommendation at this time, suggest monitoring renal function while inpatient. Will sign off, outpatient nephrology appointment in 2-3 months. Admission and Anticipated Discharge Date Admission Date: July 25, 2022 Subjective Dotty was seen and evaluated this morning. overall she was otherwise clinically about the same. Continues to have difficulty starting voiding but once she starts, she voids completely. Denies shortness of breath, chest pain, lower extremity edema. Renal function staying relatively stable, electrolyte acceptable. Blood pressure well controlled. Review of Systems Review of Systems: detailed review of system was done and pertinent positive and negatives are mentioned in HPI. Physical Exam Constitutional: WD/WN, vitals as above + morbidly obese; no acute distress Eyes: + anicteric sclerae ENMT: Ears: no hearing impairment Neck: + tracheostomy present Respiratory: no respiratory distress Auscultation: lungs clear to auscultation bilaterally Cardiovascular: RRR, no murmur, no edema Gastrointestinal (Abdomen): Percussion/Palpation: abdomen soft; abdomen nontender Musculoskeletal: Extremities: extremities normal to inspection Skin: no rashes Neurologic: no focal motor deficits Psychiatric: Orientation: alert and oriented x 3 Affect: euthymic affect Results & Data ([facility]) Vital Signs (Past 12 Hours) Vital Signs Temp Pulse Resp BP BP Pulse Ox O2 Del Method 08/11/22 09:40 76 100/64 08/11/22 07:16 36.3 C L 66 16 106/69 93 Room Air 08/11/22 07:06 64 19 97 Room Air FiO2 08/11/22 09:40 08/11/22 07:16 08/11/22 07:06 21 PG Care Time/CCT Total # of Minutes Spent Total Time Spent with Patient: Total time spent is greater than 50% in coordination of care (as documented) at patient's floor/unit and/or counseling patient: Coding Level of Care Code 99655 Subseq Hosp Care Lvl 2 Diagnoses CKD stage 4 due to type 2 diabetes mellitus E11.22; N18.4 Morbid obesity E66.01 Insulin-requiring or dependent type II diabetes mellitus E11.9; Z79.4 HTN (hypertension) I10
--- NOTE | 2022-08-11 18:50 | Hospitalist Progress Note ---
Date of Service August 11, 2022 Assessment & Plan (1) Weakness: Plan: PT/OT eval and treat, current goal subacute rehab at SNF with knee pain, x ray shows poor healing of femur Right leg NWB Seen by Dr. Su, indicates that femur fx is not healed and will likely not heal further * Could bear some weight as tolerated - but leg will be unstable and put her at risk of falls * Transfer bed to wheelchair with assistance of a walker * Needs SNF w/ rehab in order to get her to safely transfer oxycodone prn pain, Can use Voltaren to R knee also (2) Chest pain: Plan: Remains Chest pain-free, of note patient with substantial pain relief using Voltaren and pain was reproducible on palpation No EKG findings consistent with ischemia. High-sensitivity troponin 7.5, stable No shortness of breath, Mucous plug versus anxiety with initial episode Patient doing well on medical surgical, pending SNF, her non weight bearing on right leg now maybe issue ISSUE RESOLVED (3) CKD (chronic kidney disease) stage 4, GFR 15-29 ml/min: Plan: - Creatinine stable - Consult nephrology as per pt request-no changes to management - Could consider adding flomax d/t her urinary hesitancy -Avoid nephrotoxins -renally dose meds when appropriate (4) Morbid obesity: Plan: An unfortunate root cause of much of her comorbidities (5) Type 2 diabetes mellitus: Plan: A1c 8.9, insulin management, pharmacy glycemic consult Empagliflozin held (6) Chronic respiratory failure: Plan: Stable. Probably predominantly OHS mediated with trach in place (7) HTN (hypertension): Plan: - Blood pressure has been acceptable, continue isosorbide, lisinopril, metoprolol, aldactone, torsemide (8) Hypoventilation associated with obesity: Plan: - Tracheostomy, clear, patient doing well - Discussed with patient regarding exchanging trach from metal to regular, not interested - Does [facility] (9) Chronic diastolic congestive heart failure: Plan: with cor pulmonale and cad Continued on torsemide, spironolactone, metoprolol, lisinopril, isosorbide, atorvastatin, aspirin Plan DVT prophylaxis with Lovenox. Case management on consult to assist in dc planning. She is medically stable for discharge. Multiple referrals sent out and are pending. Dispo remains uncertain as she has multiple factors complicating facility's ability to care for patient given her need for bariatric bed + metal trach. Admission and Anticipated Discharge Date Admission Date: July 25, 2022 Subjective No concerns. Some pain in thigh. Eating and drinking ,moving bowels Review of Systems Review of Systems: All systems reviewed & are unremarkable except as noted in HPI & below Physical Exam Constitutional: WD/WN, vitals as above Eyes: + anicteric sclerae Neck: + abnormal visual inspection (metal trach in place) Respiratory: normal respiratory effort, lungs clear to auscultation Cardiovascular: RRR, no murmur, no edema Chest (Breasts): Chest: normal inspection of chest Gastrointestinal (Abdomen): normal bowel sounds, soft, nontender, no hepatosplenomegaly Musculoskeletal: Extremities: extremities normal to inspection; no cyanosis and no clubbing Skin: no rashes, warm and dry Neurologic: moves all extremities and awake; no focal motor deficits Psychiatric: A+Ox3, euthymic affect Lymphatic: no lymphedema Results & Data Results & Data ([facility]) Vital Signs (Past 12 Hours) Vital Signs Temp Pulse Resp BP BP Pulse Ox O2 Del Method 08/11/22 17:40 86 124/76 08/11/22 15:16 79 16 95 Room Air 08/11/22 14:36 36.7 C 79 20 99/61 L 93 Room Air 08/11/22 08:00 Room Air 08/11/22 10:44 64 14 95 Room Air 08/11/22 09:40 76 100/64 08/11/22 07:16 36.3 C L 66 16 106/69 93 Room Air 08/11/22 07:06 64 19 97 Room Air FiO2 08/11/22 17:40 08/11/22 15:16 21 08/11/22 14:36 08/11/22 08:00 08/11/22 10:44 21 08/11/22 09:40 08/11/22 07:16 08/11/22 07:06 21 Laboratory Results 08/11/22 08/11/22 08/11/22 Range/Units 16:53 12:04 08:17 POC Glucose 185 H 178 H 159 H (70-99) mg/dl 08/10/22 Range/Units 20:41 POC Glucose 155 H (70-99) mg/dl PG Care Time/CCT Total # of Minutes Spent Total Time Spent with Patient: Total time spent is greater than 50% in coordination of care (as documented) at patient's floor/unit and/or counseling patient: Coding Level of Care Code 72218 Subseq Hosp Care Lvl 1 Diagnoses Weakness R53.1 Chest pain R07.9 CKD (chronic kidney disease) stage 4, GFR 15-29 ml/min N18.4 Morbid obesity E66.01 Type 2 diabetes mellitus E11.9 Chronic respiratory failure J96.10 Respiratory failure complication: unspecified whether with hypoxia or hypercapnia HTN (hypertension) I10 Hypoventilation associated with obesity E66.2 Chronic diastolic congestive heart failure I50.32 (1) Chronic respiratory failure Respiratory failure complication: unspecified whether with hypoxia or hypercapnia Qualified Code(s): J96.10 - Chronic respiratory failure, unspecified whether with hypoxia or hypercapnia
[2022-08-11] MEDS: ENOXAPARIN INJ 40 MG/0.4 ML SYR SQ SCH (20:36)
[2022-08-11] MEDS: MONTELUKAST SODIUM 10 MG TABLET PO SCH (20:40)
[2022-08-11] MEDS: ATORVASTATIN 40 MG TAB PO SCH (20:40)
[2022-08-12] MEDS: LEVOTHYROXINE SODIUM 200 MCG TABLET PO SCH (06:06)
[2022-08-12] MEDS: TORSEMIDE 10 MG TAB PO SCH ×2 (06:07→13:41)
[2022-08-12] MEDS: Albuterol HFA 8 GM Inhaler (Combivent Respimat P&T Subs) INH SCH ×4 (06:59→19:47)
[2022-08-12] MEDS: Ipratropium HFA Inhaler (Combivent Respimat P&T Subs) INH SCH ×4 (06:59→19:47)
[2022-08-12] MEDS: ISOSORBIDE MONO EXTENDED REL 60 MG TABCR PO SCH (08:14)
[2022-08-12] MEDS: METOPROLOL TARTRATE 25 MG TAB PO SCH ×2 (08:15→20:11)
[2022-08-12] MEDS: FOLIC ACID 1 MG TAB PO SCH (08:16)
[2022-08-12] MEDS: POTASSIUM CHLORIDE CRTAB 20 MEQ TABCR PO SCH ×2 (08:16→20:13)
[2022-08-12] MEDS: PANTOprazole 40 MG TAB PO SCH ×2 (08:16→20:11)
[2022-08-12] MEDS: ADVANCED PROBIOTIC 1250 MG CAPSULE PO SCH (08:16)
[2022-08-12] MEDS: MULTIVITAMIN TAB PO SCH (08:17)
[2022-08-12] MEDS: buPROPion SR 100 MG TABCR PO SCH ×2 (08:17→20:12)
[2022-08-12] MEDS: ASPIRIN 81 MG ECTAB PO SCH (08:17)
[2022-08-12] MEDS: DICLOFENAC SOD 1% GEL 100 GM TUBE EXT SCH ×4 (08:18→21:49)
[2022-08-12] MEDS: SPIRONOLACTONE 25 MG TAB PO SCH (08:18)
[2022-08-12] MEDS: lisinopril 2.5 MG TAB PO SCH (08:18)
[2022-08-12] MEDS: TOPIRAMATE 100 MG TAB PO SCH ×2 (08:19→20:11)
[2022-08-12] MEDS: DOCUSATE SODIUM 100 MG CAP PO SCH ×2 (08:19→20:17)
[2022-08-12] MEDS: LANTUS PER UNIT CHARGE SQ SCH ×2 (08:26→21:49)
[2022-08-12] MEDS: INSULIN ASPART PER UNIT SC SCH ×4 (08:26→21:50)
[2022-08-12] MEDS ORDERED: oxyCODONE HCL IR 5 MG TAB (IMMEDIATE RELEASE) PO PRN (18:07)
--- NOTE | 2022-08-12 18:16 | Hospitalist Progress Note ---
Date of Service August 12, 2022 Assessment & Plan (1) Weakness: Plan: Patient is a 67-year-old female who recently had a 4-month long stay at [facility] in [place] after sustaining a femur fracture She was there for prolonged stay only due to extreme difficulty finding rehab placement. She was discharged to home and was not able to care for herself and immediately came to our hospital rehab placement PT/OT eval and treat, current goal subacute rehab at SNF-multiple referrals out and pending-difficult to find placement due to metal trach and need for bariatric bed with knee pain, x ray shows poor healing of femur with angulation, some callus formation Right leg NWB Seen by Dr. Su, indicates that femur fx is not healed and will likely not heal further * Could bear some weight as tolerated - but leg will be unstable and put her at risk of falls * Transfer bed to wheelchair with assistance of a walker * Needs SNF w/ rehab in order to get her to safely transfer She has been on oxycodone 10 mg p.o. every 6 hours as needed for pain since March-we will continue oxycodone prn pain-however, patient agreeable to weaning down the dose to 5 mg p.o. every 6 hours as needed moderate-severe pain, Tylenol as needed for mild pain (2) Chest pain: Plan: Remains Chest pain-free, of note patient with substantial pain relief using Voltaren and pain was reproducible on palpation No EKG findings consistent with ischemia. High-sensitivity troponin 7.5, stable No shortness of breath, Mucous plug versus anxiety with initial episode Patient doing well on medical surgical, pending SNF, her non weight bearing on right leg now maybe issue ISSUE RESOLVED (3) CKD (chronic kidney disease) stage 4, GFR 15-29 ml/min: Plan: - Creatinine stable - Consult nephrology as per pt request-no changes to management - Could consider adding flomax d/t her urinary hesitancy -Avoid nephrotoxins -renally dose meds when appropriate (4) Morbid obesity: Plan: An unfortunate root cause of much of her comorbidities BMI 56.3 (5) Type 2 diabetes mellitus: Plan: A1c 8.9, insulin management, pharmacy glycemic consult appreciated Empagliflozin held (6) Chronic respiratory failure: Plan: Stable. Probably predominantly OHS mediated with trach in place since 2007 Continue trach care routinely (7) HTN (hypertension): Plan: - Blood pressure has been acceptable, continue isosorbide, lisinopril, metoprolol, aldactone, torsemide (8) Hypoventilation associated with obesity: Plan: - Tracheostomy, clear, patient doing well - Discussed with patient regarding exchanging trach from metal to regular, not interested - Does follow up with [facility] regularly (9) Chronic diastolic congestive heart failure: Plan: with cor pulmonale and cad Continued on torsemide, spironolactone, metoprolol, lisinopril, isosorbide, atorvastatin, aspirin (10) Wound, breast: Plan: Noted on exam on 08/12-a very superficial abrasion on the right lateral breast- seems likely secondary to either a pressure injury or friction injury? It has been present for approximately 1 week as per patient and I do not suspect breast cancer Follow clinically and continue dressing changes as per wound care (11) Hypothyroidism (acquired): Plan: TSH was normal at 2.09 in 11/2021 -Continue home levothyroxine 200 mcg once daily (12) GERD (gastroesophageal reflux disease): Plan: Continue Protonix 40 Mg p.o. twice daily (13) Dyslipidemia: Plan: Continue statin (14) Coronary artery disease: Plan: As above Plan DVT prophylaxis with Lovenox. Disposition-case management on consult to assist in dc planning. She is medically stable for discharge. Multiple referrals sent out and are pending. Dispo remains uncertain as she has multiple factors complicating facility's ability to care for patient given her need for bariatric bed + metal trach. Admission and Anticipated Discharge Date Admission Date: July 25, 2022 Subjective Patient has no complaints. She reports she has been taking oxycodone milligram dose since she was in the hospital and [facility] since March. Her oxycodone fell off the MAR today and interestingly, she has not taken a dose all day. She does want some available prior to getting out of bed with physical therapy, and she is agreeable to going to a lower dose to try to wean off of it. Otherwise, she noticed a wound on her right breast for approximately the last week but is not sure how it got there. Denies any other new issues. Review of Systems Review of Systems: All systems reviewed & are unremarkable except as noted in HPI & below Physical Exam Constitutional: WD/WN, vitals as above Eyes: + anicteric sclerae Neck: + abnormal visual inspection (metal trach in place) Respiratory: normal respiratory effort, lungs clear to auscultation Cardiovascular: RRR, no murmur, no edema Chest (Breasts): Chest: normal inspection of chest Breast: no breast mass (On the right) and no breast tenderness (On the right) Gastrointestinal (Abdomen): normal bowel sounds, soft, nontender, no hepatosplenomegaly Musculoskeletal: Extremities: extremities normal to inspection; no cyanosis and no clubbing Skin: no rashes, warm and dry + ulcer (Right lateral breast, superficial) Neurologic: moves all extremities and awake; no focal motor deficits Psychiatric: A+Ox3, euthymic affect Results & Data Results & Data ([facility]) Vital Signs (Past 12 Hours) Vital Signs Temp Pulse Pulse Resp BP Pulse Ox O2 Del Method 08/12/22 15:41 36.6 C 82 20 103/64 93 Trach Collar 08/12/22 14:15 87 16 94 Room Air 08/12/22 10:47 74 16 94 Room Air 08/12/22 07:30 Room Air 08/12/22 08:12 75 103/67 08/12/22 08:12 36.5 C 74 20 104/64 97 Trach Collar 08/12/22 06:59 71 16 97 Room Air Laboratory Results 08/12/22 08/12/22 08/12/22 Range/Units 16:51 11:44 07:56 POC Glucose 180 H 178 H 167 H (70-99) mg/dl 08/11/22 Range/Units 20:22 POC Glucose 186 H (70-99) mg/dl PG Care Time/CCT Total # of Minutes Spent Total Time Spent with Patient: Total time spent is greater than 50% in coordination of care (as documented) at patient's floor/unit and/or counseling patient: Coding Level of Care Code 68925 Subseq Hosp Care Lvl 1 Diagnoses Weakness R53.1 Chest pain R07.9 CKD (chronic kidney disease) stage 4, GFR 15-29 ml/min N18.4 Morbid obesity E66.01 Type 2 diabetes mellitus E11.9 Chronic respiratory failure J96.10 Respiratory failure complication: unspecified whether with hypoxia or hypercapnia HTN (hypertension) I10 Hypoventilation associated with obesity E66.2 Chronic diastolic congestive heart failure I50.32 Wound, breast S21.009A Hypothyroidism (acquired) E03.9 GERD (gastroesophageal reflux disease) K21.9 Dyslipidemia E78.5 Coronary artery disease I25.10 (1) Chronic respiratory failure Respiratory failure complication: unspecified whether with hypoxia or hypercapnia Qualified Code(s): J96.10 - Chronic respiratory failure, unspecified whether with hypoxia or hypercapnia
[2022-08-12] MEDS: ENOXAPARIN INJ 40 MG/0.4 ML SYR SQ SCH (20:10)
[2022-08-12] MEDS: ATORVASTATIN 40 MG TAB PO SCH (20:12)
[2022-08-12] MEDS: MONTELUKAST SODIUM 10 MG TABLET PO SCH (20:12)
[2022-08-13] MEDS: LEVOTHYROXINE SODIUM 200 MCG TABLET PO SCH (05:38)
[2022-08-13] MEDS: Albuterol HFA 8 GM Inhaler (Combivent Respimat P&T Subs) INH SCH ×4 (07:19→19:41)
[2022-08-13] MEDS: Ipratropium HFA Inhaler (Combivent Respimat P&T Subs) INH SCH ×4 (07:20→19:41)
[2022-08-13] MEDS: TORSEMIDE 10 MG TAB PO SCH ×2 (08:11→14:13)
[2022-08-13] MEDS: POTASSIUM CHLORIDE CRTAB 20 MEQ TABCR PO SCH ×2 (08:13→20:19)
[2022-08-13] MEDS: PANTOprazole 40 MG TAB PO SCH ×2 (08:13→20:19)
[2022-08-13] MEDS: buPROPion SR 100 MG TABCR PO SCH ×2 (08:13→20:19)
[2022-08-13] MEDS: ISOSORBIDE MONO EXTENDED REL 60 MG TABCR PO SCH (08:14)
[2022-08-13] MEDS: ADVANCED PROBIOTIC 1250 MG CAPSULE PO SCH (08:14)
[2022-08-13] MEDS: ASPIRIN 81 MG ECTAB PO SCH (08:14)
[2022-08-13] MEDS: FOLIC ACID 1 MG TAB PO SCH (08:15)
[2022-08-13] MEDS: TOPIRAMATE 100 MG TAB PO SCH ×2 (08:15→20:18)
[2022-08-13] MEDS: lisinopril 2.5 MG TAB PO SCH (08:15)
[2022-08-13] MEDS: MULTIVITAMIN TAB PO SCH (08:16)
[2022-08-13] MEDS: METOPROLOL TARTRATE 25 MG TAB PO SCH ×2 (08:16→20:19)
[2022-08-13] MEDS: DICLOFENAC SOD 1% GEL 100 GM TUBE EXT SCH ×4 (08:17→20:20)
[2022-08-13] MEDS: DOCUSATE SODIUM 100 MG CAP PO SCH ×2 (08:20→20:17)
[2022-08-13] MEDS: SPIRONOLACTONE 25 MG TAB PO SCH (08:57)
[2022-08-13] MEDS: INSULIN ASPART PER UNIT SC SCH ×4 (08:58→21:27)
[2022-08-13] MEDS: LANTUS PER UNIT CHARGE SQ SCH ×2 (08:59→21:28)
--- NOTE | 2022-08-13 13:38 | Pharmacy Report ---
Pharmacy Glycemic Short Note 2 - Date of Service August 13, 2022 - Glycemic Short BSG Results (Last 24 hours): 08/12/22 08/12/22 08/13/22 16:51 20:34 07:52 POC Glucose 180 H 181 H 179 H 08/13/22 11:54 POC Glucose 188 H OUTPATIENT ANTIDIABETIC REGIMEN: * Jardiance 25mg PO daily * Patient on insulin pump in the past (Basal rate 6 units/hr, bolus with 50 units TID meals -- approx 200 units per day) * A1c 8.5% 03/24/22 ASSESSMENT: 08/13 * Fasting continues to be slightly above goal range, will increase lantus dose to 60 units BID * BSGs remain stable, will continue current novolog parameters 08/09 * No changes have been made to patient's insulin regimen for the past several days. Pt has been requiring ~200 units of insulin per day, with relatively stable BSGs. * Last evening, BSGs were somewhat elevated. If this becomes a trend, will consider tightening Novolog parameters. * Will continue to follow and adjust regimen as indicated. PLAN FOR INPATIENT GLYCEMIC CONTROL: * Hold outpatient oral diabetes medications * Basal insulin * Lantus 60 units SC BID * Bolus insulin * NovoLog per scale ACHS or Q6hrs while NPO * Goal Range: Low 110 mg/dL - High 140 mg/dL * Correction Factor: 5 mg/dL/unit at breakfast and 6 mg/dl/units at lunch, dinner and HS * Nutritional / Prandial insulin per carb ratio of 1 unit per 1.5 grams CHO consumed at breakfast, 1 unit per 2 grams CHO consumed at lunch, dinner and HS
[2022-08-13] MEDS: ACETAMINOPHEN 500 MG TAB PO PRN (16:38)
[2022-08-13] MEDS ORDERED: oxyCODONE HCL IR 5 MG TAB (IMMEDIATE RELEASE) PO STA (17:34)
--- NOTE | 2022-08-13 19:35 | Hospitalist Progress Note ---
Date of Service August 13, 2022 Assessment & Plan (1) Weakness: Plan: Patient is a 67-year-old female who recently had a 4-month long stay at [facility] in [place] after sustaining a femur fracture She was there for prolonged stay only due to extreme difficulty finding rehab placement. She was discharged to home and was not able to care for herself and immediately came to our hospital rehab placement PT/OT eval and treat, current goal subacute rehab at SNF-multiple referrals out and pending-difficult to find placement due to metal trach and need for bariatric bed with knee pain, x ray shows poor healing of femur with angulation, some callus formation Right leg NWB Seen by Dr. Su, indicates that femur fx is not healed and will likely not heal further * Could bear some weight as tolerated - but leg will be unstable and put her at risk of falls * Transfer bed to wheelchair with assistance of a walker * Needs SNF w/ rehab in order to get her to safely transfer She has been on oxycodone 10 mg p.o. every 6 hours as needed for pain since March-we will continue oxycodone prn pain-however, patient agreeable to weaning down the dose-trial of 5 mg p.o. every 6 hours as needed was unsuccessful-Will increase dose back to 10 Mg but make the frequency down to every 12 hours and encouraged her to use it prior to physical therapy -Continue Tylenol as needed for mild pain (2) CKD (chronic kidney disease) stage 4, GFR 15-29 ml/min: Plan: - Creatinine stable - Consult nephrology as per pt request-no changes to management -Urinary hesitancy is likely due to chronic opioid use-Will bladder scan with each shift to look for retention -Weaning off opioids -Avoid nephrotoxins -renally dose meds when appropriate (3) Morbid obesity: Plan: An unfortunate root cause of much of her comorbidities BMI 56.3 (4) Type 2 diabetes mellitus: Plan: A1c 8.9, insulin management, pharmacy glycemic consult appreciated Empagliflozin held (5) Chronic respiratory failure: Plan: Stable. Probably predominantly OHS mediated with trach in place since 2007 Continue trach care routinely (6) HTN (hypertension): Plan: - Blood pressure has been acceptable, continue isosorbide, lisinopril, metoprolol, aldactone, torsemide (7) Hypoventilation associated with obesity: Plan: - Tracheostomy, clear, patient doing well - Discussed with patient regarding exchanging trach from metal to regular, not interested - Does follow up with [facility] regularly (8) Chronic diastolic congestive heart failure: Plan: with cor pulmonale and cad Continued on torsemide, spironolactone, metoprolol, lisinopril, isosorbide, atorvastatin, aspirin (9) Wound, breast: Plan: Noted on exam on 08/12-a very superficial abrasion on the right lateral breast- seems likely secondary to either a pressure injury or friction injury? It has been present for approximately 1 week as per patient and I do not suspect breast cancer Follow clinically and continue dressing changes as per wound care (10) Hypothyroidism (acquired): Plan: TSH was normal at 2.09 in 11/2021 -Continue home levothyroxine 200 mcg once daily (11) GERD (gastroesophageal reflux disease): Plan: Continue Protonix 40 Mg p.o. twice daily (12) Dyslipidemia: Plan: Continue statin (13) Coronary artery disease: Plan: As above (14) Chest pain: Plan: Remains Chest pain-free, of note patient with substantial pain relief using Voltaren and pain was reproducible on palpation No EKG findings consistent with ischemia. High-sensitivity troponin 7.5, stable No shortness of breath, Mucous plug versus anxiety with initial episode Patient doing well on medical surgical, pending SNF, her non weight bearing on right leg now maybe issue ISSUE RESOLVED Plan DVT prophylaxis with Lovenox. Disposition-case management on consult to assist in dc planning. She is medically stable for discharge. Multiple referrals sent out and are pending. Dispo remains uncertain as she has multiple factors complicating facility's ability to care for patient given her need for bariatric bed + metal trach. Admission and Anticipated Discharge Date Admission Date: July 25, 2022 Subjective Patient reports that she had severe, 9/10 in severity, pain in the femur today after working physical therapy and required an extra 5 mg of oxycodone for total of 10 Mg. She also reports continued difficulty with starting her urine stream. We had a long discussion about why I am trying to wean her off opioids in order to prevent side effects such as constipation and urinary hesitancy. Otherwise no problems. Review of Systems Review of Systems: All systems reviewed & are unremarkable except as noted in HPI & below Physical Exam Constitutional: WD/WN, vitals as above Eyes: + anicteric sclerae Neck: + abnormal visual inspection (metal trach in place) Respiratory: normal respiratory effort, lungs clear to auscultation Cardiovascular: RRR, no murmur, no edema Chest (Breasts): Chest: normal inspection of chest Breast: no breast mass (On the right) and no breast tenderness (On the right) Gastrointestinal (Abdomen): normal bowel sounds, soft, nontender, no hepatosplenomegaly Musculoskeletal: Extremities: extremities normal to inspection; no cyanosis and no clubbing Skin: no rashes, warm and dry + ulcer (Right lateral breast, superficial) Neurologic: moves all extremities and awake; no focal motor deficits Psychiatric: A+Ox3, euthymic affect Lymphatic: no lymphedema Results & Data Results & Data ([facility]) Vital Signs (Past 12 Hours) Vital Signs Temp Pulse Pulse Resp BP Pulse Ox O2 Del Method 08/13/22 15:10 81 18 94 Room Air 08/13/22 15:06 36.6 C 81 20 104/60 94 Room Air 08/13/22 11:44 79 18 95 Room Air 08/13/22 08:09 75 110/68 PG Care Time/CCT Total # of Minutes Spent Total Time Spent with Patient: Total time spent is greater than 50% in coordination of care (as documented) at patient's floor/unit and/or counseling patient: Coding Level of Care Code 96987 Subseq Hosp Care Lvl 2 Diagnoses Weakness R53.1 CKD (chronic kidney disease) stage 4, GFR 15-29 ml/min N18.4 Morbid obesity E66.01 Type 2 diabetes mellitus E11.9 Chronic respiratory failure J96.10 Respiratory failure complication: unspecified whether with hypoxia or hypercapnia HTN (hypertension) I10 Hypoventilation associated with obesity E66.2 Chronic diastolic congestive heart failure I50.32 Wound, breast S21.009A Hypothyroidism (acquired) E03.9 GERD (gastroesophageal reflux disease) K21.9 Dyslipidemia E78.5 Coronary artery disease I25.10 Chest pain R07.9 (1) Chronic respiratory failure Respiratory failure complication: unspecified whether with hypoxia or hypercapnia Qualified Code(s): J96.10 - Chronic respiratory failure, unspecified whether with hypoxia or hypercapnia
[2022-08-13] MEDS: ENOXAPARIN INJ 40 MG/0.4 ML SYR SQ SCH (20:18)
[2022-08-13] MEDS: ATORVASTATIN 40 MG TAB PO SCH (20:18)
[2022-08-13] MEDS: MONTELUKAST SODIUM 10 MG TABLET PO SCH (20:20)
[2022-08-14] MEDS: LEVOTHYROXINE SODIUM 200 MCG TABLET PO SCH (06:39)
[2022-08-14] MEDS: Albuterol HFA 8 GM Inhaler (Combivent Respimat P&T Subs) INH SCH ×4 (07:16→20:38)
[2022-08-14] MEDS: Ipratropium HFA Inhaler (Combivent Respimat P&T Subs) INH SCH ×4 (07:16→20:38)
[2022-08-14] MEDS: POTASSIUM CHLORIDE CRTAB 20 MEQ TABCR PO SCH ×2 (08:19→21:42)
[2022-08-14] MEDS: buPROPion SR 100 MG TABCR PO SCH ×2 (08:20→21:44)
[2022-08-14] MEDS: METOPROLOL TARTRATE 25 MG TAB PO SCH ×2 (08:20→21:44)
[2022-08-14] MEDS: ISOSORBIDE MONO EXTENDED REL 60 MG TABCR PO SCH (08:20)
[2022-08-14] MEDS: TOPIRAMATE 100 MG TAB PO SCH ×2 (08:20→21:43)
[2022-08-14] MEDS: PANTOprazole 40 MG TAB PO SCH ×2 (08:20→21:45)
[2022-08-14] MEDS: lisinopril 2.5 MG TAB PO SCH (08:20)
[2022-08-14] MEDS: ADVANCED PROBIOTIC 1250 MG CAPSULE PO SCH (08:21)
[2022-08-14] MEDS: ASPIRIN 81 MG ECTAB PO SCH (08:21)
[2022-08-14] MEDS: TORSEMIDE 10 MG TAB PO SCH ×2 (08:21→13:10)
[2022-08-14] MEDS: FOLIC ACID 1 MG TAB PO SCH (08:21)
[2022-08-14] MEDS: MULTIVITAMIN TAB PO SCH (08:21)
[2022-08-14] MEDS: DICLOFENAC SOD 1% GEL 100 GM TUBE EXT SCH ×4 (08:22→21:45)
[2022-08-14] MEDS: SPIRONOLACTONE 25 MG TAB PO SCH (08:22)
[2022-08-14] MEDS: DOCUSATE SODIUM 100 MG CAP PO SCH ×2 (08:23→21:50)
[2022-08-14] MEDS: INSULIN ASPART PER UNIT SC SCH ×4 (08:25→21:39)
[2022-08-14] MEDS: LANTUS PER UNIT CHARGE SQ SCH ×2 (08:26→21:39)
--- NOTE | 2022-08-14 13:03 | Hospitalist Progress Note ---
Date of Service August 14, 2022 Assessment & Plan (1) Weakness: Plan: Patient is a 67-year-old female who recently had a 4-month long stay at [facility] in [place] after sustaining a femur fracture She was there for prolonged stay only due to extreme difficulty finding rehab placement. She was discharged to home and was not able to care for herself and immediately came to our hospital rehab placement PT/OT eval and treat, current goal subacute rehab at SNF-multiple referrals out and pending-difficult to find placement due to metal trach and need for bariatric bed with knee pain, x ray shows poor healing of femur with angulation, some callus formation Right leg NWB Seen by Dr. Su, indicates that femur fx is not healed and will likely not heal further * Could bear some weight as tolerated - but leg will be unstable and put her at risk of falls * Transfer bed to wheelchair with assistance of a walker * Needs SNF w/ rehab in order to get her to safely transfer She has been on oxycodone 10 mg p.o. every 6 hours as needed for pain since March-we will continue oxycodone prn pain-however, patient agreeable to weaning down the dose-trial of 5 mg p.o. every 6 hours as needed was unsuccessful-have since increased dose back to 10 Mg but made the frequency down to every 12 hours and encouraged her to use it prior to physical therapy-has not used any since 08/13 -Continue Tylenol as needed for mild pain (2) CKD (chronic kidney disease) stage 4, GFR 15-29 ml/min: Plan: - Creatinine stable - Consult nephrology as per pt request-no changes to management -Urinary hesitancy is likely due to chronic opioid use-Will bladder scan with each shift to look for retention -Weaning off opioids -Avoid nephrotoxins -renally dose meds when appropriate (3) Morbid obesity: Plan: An unfortunate root cause of much of her comorbidities BMI 56.3 (4) Type 2 diabetes mellitus: Plan: A1c 8.9, insulin management, pharmacy glycemic consult appreciated Empagliflozin held (5) Chronic respiratory failure: Plan: Stable. Probably predominantly OHS mediated with trach in place since 2007 Continue trach care routinely (6) HTN (hypertension): Plan: - Blood pressure has been acceptable, continue isosorbide, lisinopril, metoprolol, aldactone, torsemide (7) Hypoventilation associated with obesity: Plan: - Tracheostomy, clear, patient doing well - Discussed with patient regarding exchanging trach from metal to regular, not interested - Does follow up with [facility] regularly (8) Chronic diastolic congestive heart failure: Plan: with cor pulmonale and cad Continued on torsemide, spironolactone, metoprolol, lisinopril, isosorbide, atorvastatin, aspirin (9) Wound, breast: Plan: Noted on exam on 08/12-a very superficial abrasion on the right lateral breast- seems likely secondary to either a pressure injury or friction injury? It has been present for approximately 1 week as per patient and I do not suspect breast cancer Follow clinically and continue dressing changes as per wound care (10) Hypothyroidism (acquired): Plan: TSH was normal at 2.09 in 11/2021 -Continue home levothyroxine 200 mcg once daily (11) GERD (gastroesophageal reflux disease): Plan: Continue Protonix 40 Mg p.o. twice daily (12) Dyslipidemia: Plan: Continue statin (13) Coronary artery disease: Plan: As above (14) Chest pain: Plan: Remains Chest pain-free, of note patient with substantial pain relief using Voltaren and pain was reproducible on palpation No EKG findings consistent with ischemia. High-sensitivity troponin 7.5, stable No shortness of breath, Mucous plug versus anxiety with initial episode Patient doing well on medical surgical, pending SNF, her non weight bearing on right leg now maybe issue ISSUE RESOLVED Plan DVT prophylaxis with Lovenox. Disposition-case management on consult to assist in dc planning. She is medically stable for discharge. Multiple referrals sent out and are pending. Dispo remains uncertain as she has multiple factors complicating facility's ability to care for patient given her need for bariatric bed + metal trach. 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 No pain in thigh today at all but did not work with PT today Review of Systems Review of Systems: All systems reviewed & are unremarkable except as noted in HPI & below Physical Exam Constitutional: WD/WN, vitals as above Eyes: + anicteric sclerae Neck: + abnormal visual inspection (metal trach in place) Respiratory: normal respiratory effort, lungs clear to auscultation Cardiovascular: RRR, no murmur, no edema Chest (Breasts): Chest: normal inspection of chest Gastrointestinal (Abdomen): normal bowel sounds, soft, nontender, no hepatosplenomegaly Musculoskeletal: Extremities: extremities normal to inspection; no cyanosis and no clubbing Skin: no rashes, warm and dry Neurologic: moves all extremities and awake; no focal motor deficits Psychiatric: A+Ox3, euthymic affect Lymphatic: no lymphedema Results & Data Results & Data ([facility]) Vital Signs (Past 12 Hours) Vital Signs Temp Pulse Resp BP Pulse Ox O2 Del Method 08/14/22 07:17 84 16 96 Room Air 08/14/22 06:47 36.6 C 71 20 111/71 94 Room Air 08/14/22 03:01 Room Air PG Care Time/CCT Total # of Minutes Spent Total Time Spent with Patient: Total time spent is greater than 50% in coordination of care (as documented) at patient's floor/unit and/or counseling patient: Coding Level of Care Code 98898 Subseq Hosp Care Lvl 1 Diagnoses Weakness R53.1 CKD (chronic kidney disease) stage 4, GFR 15-29 ml/min N18.4 Morbid obesity E66.01 Type 2 diabetes mellitus E11.9 Chronic respiratory failure J96.10 Respiratory failure complication: unspecified whether with hypoxia or hypercapnia HTN (hypertension) I10 Hypoventilation associated with obesity E66.2 Chronic diastolic congestive heart failure I50.32 Wound, breast S21.009A Hypothyroidism (acquired) E03.9 GERD (gastroesophageal reflux disease) K21.9 Dyslipidemia E78.5 Coronary artery disease I25.10 Chest pain R07.9 (1) Chronic respiratory failure Respiratory failure complication: unspecified whether with hypoxia or hypercapnia Qualified Code(s): J96.10 - Chronic respiratory failure, unspecified whether with hypoxia or hypercapnia
[2022-08-14] MEDS: ENOXAPARIN INJ 40 MG/0.4 ML SYR SQ SCH (21:41)
[2022-08-14] MEDS: MONTELUKAST SODIUM 10 MG TABLET PO SCH (21:43)
[2022-08-14] MEDS: ATORVASTATIN 40 MG TAB PO SCH (21:43)
[2022-08-15] MEDS: LEVOTHYROXINE SODIUM 200 MCG TABLET PO SCH (06:00)
[2022-08-15] MEDS: TORSEMIDE 10 MG TAB PO SCH ×2 (06:00→12:33)
[2022-08-15] MEDS: Ipratropium HFA Inhaler (Combivent Respimat P&T Subs) INH SCH ×4 (07:19→20:04)
[2022-08-15] MEDS: Albuterol HFA 8 GM Inhaler (Combivent Respimat P&T Subs) INH SCH ×4 (07:19→20:04)
[2022-08-15] MEDS: lisinopril 2.5 MG TAB PO SCH (08:14)
[2022-08-15] MEDS: buPROPion SR 100 MG TABCR PO SCH ×2 (08:14→21:48)
[2022-08-15] MEDS: PANTOprazole 40 MG TAB PO SCH ×2 (08:14→21:45)
[2022-08-15] MEDS: METOPROLOL TARTRATE 25 MG TAB PO SCH ×2 (08:14→21:47)
[2022-08-15] MEDS: ADVANCED PROBIOTIC 1250 MG CAPSULE PO SCH (08:14)
[2022-08-15] MEDS: ASPIRIN 81 MG ECTAB PO SCH (08:14)
[2022-08-15] MEDS: FOLIC ACID 1 MG TAB PO SCH (08:14)
[2022-08-15] MEDS: SPIRONOLACTONE 25 MG TAB PO SCH (08:14)
[2022-08-15] MEDS: POTASSIUM CHLORIDE CRTAB 20 MEQ TABCR PO SCH ×2 (08:15→21:43)
[2022-08-15] MEDS: TOPIRAMATE 100 MG TAB PO SCH ×2 (08:15→21:44)
[2022-08-15] MEDS: MULTIVITAMIN TAB PO SCH (08:15)
[2022-08-15] MEDS: ISOSORBIDE MONO EXTENDED REL 60 MG TABCR PO SCH (08:15)
[2022-08-15] MEDS: DICLOFENAC SOD 1% GEL 100 GM TUBE EXT SCH ×4 (08:16→21:42)
[2022-08-15] MEDS: LANTUS PER UNIT CHARGE SQ SCH ×2 (08:22→21:41)
[2022-08-15] MEDS: DOCUSATE SODIUM 100 MG CAP PO SCH ×3 (08:22→21:43)
[2022-08-15] MEDS: INSULIN ASPART PER UNIT SC SCH ×4 (08:23→21:41)
--- NOTE | 2022-08-15 17:46 | Hospitalist Progress Note ---
Date of Service August 15, 2022 Assessment & Plan (1) Weakness: Plan: Patient is a 67-year-old female who recently had a 4-month long stay at [facility] in [place] after sustaining a femur fracture She was there for prolonged stay only due to extreme difficulty finding rehab placement. She was discharged to home and was not able to care for herself and immediately came to our hospital rehab placement PT/OT eval and treat, current goal subacute rehab at SNF-multiple referrals out and pending-difficult to find placement due to metal trach and need for bariatric bed with knee pain, x ray shows poor healing of femur with angulation, some callus formation Right leg NWB Seen by Dr. Su, indicates that femur fx is not healed and will likely not heal further * Could bear some weight as tolerated - but leg will be unstable and put her at risk of falls * Transfer bed to wheelchair with assistance of a walker * Needs SNF w/ rehab in order to get her to safely transfer She has been on oxycodone 10 mg p.o. every 6 hours as needed for pain since March-we will continue oxycodone prn pain-however, patient agreeable to weaning down the dose-trial of 5 mg p.o. every 6 hours as needed was unsuccessful-have since increased dose back to 10 Mg but made the frequency down to every 12 hours and encouraged her to use it prior to physical therapy-has not used any since 08/13 -Continue Tylenol as needed for mild pain (2) CKD (chronic kidney disease) stage 4, GFR 15-29 ml/min: Plan: - Creatinine stable - Consult nephrology as per pt request-no changes to management -Urinary hesitancy is likely due to chronic opioid use-Will bladder scan with each shift to look for retention -Weaning off opioids -Avoid nephrotoxins -renally dose meds when appropriate (3) Morbid obesity: Plan: An unfortunate root cause of much of her comorbidities BMI 56.3 (4) Type 2 diabetes mellitus: Plan: A1c 8.9, insulin management, pharmacy glycemic consult appreciated Empagliflozin held (5) Chronic respiratory failure: Plan: Stable. Probably predominantly OHS mediated with trach in place since 2007 Continue trach care routinely (6) HTN (hypertension): Plan: - Blood pressure has been acceptable, continue isosorbide, lisinopril, metoprolol, aldactone, torsemide (7) Hypoventilation associated with obesity: Plan: - Tracheostomy, clear, patient doing well - Discussed with patient regarding exchanging trach from metal to regular, not interested - Does follow up with [facility] regularly (8) Chronic diastolic congestive heart failure: Plan: with cor pulmonale and cad Continued on torsemide, spironolactone, metoprolol, lisinopril, isosorbide, atorvastatin, aspirin (9) Wound, breast: Plan: Noted on exam on 08/12-a very superficial abrasion on the right lateral breast- seems likely secondary to either a pressure injury or friction injury? It has been present for approximately 1 week as per patient and I do not suspect breast cancer as was questioned by Wound Care nurse Follow clinically and continue dressing changes as per wound care-improving as of 08/15 (10) Hypothyroidism (acquired): Plan: TSH was normal at 2.09 in 11/2021 -Continue home levothyroxine 200 mcg once daily (11) GERD (gastroesophageal reflux disease): Plan: Continue Protonix 40 Mg p.o. twice daily (12) Dyslipidemia: Plan: Continue statin (13) Coronary artery disease: Plan: As above (14) Chest pain: Plan: Remains Chest pain-free, of note patient with substantial pain relief using Voltaren and pain was reproducible on palpation No EKG findings consistent with ischemia. High-sensitivity troponin 7.5, stable No shortness of breath, Mucous plug versus anxiety with initial episode Patient doing well on medical surgical, pending SNF, her non weight bearing on right leg now maybe issue ISSUE RESOLVED Plan DVT prophylaxis with Lovenox. Disposition-case management on consult to assist in dc planning. She is medically stable for discharge. Multiple referrals sent out and are pending. Dispo remains uncertain as she has multiple factors complicating facility's ability to care for patient given her need for bariatric bed + metal trach. Of note, if remains here senior living, would need to ensure medications are renewed q30 days Admission and Anticipated Discharge Date Admission Date: July 25, 2022 Subjective No complaints. Eating and moving bowels, no pain in thigh today. Again did not get out of bed at all with PT. Review of Systems Review of Systems: All systems reviewed & are unremarkable except as noted in HPI & below Physical Exam Constitutional: WD/WN, vitals as above Eyes: + anicteric sclerae Neck: + abnormal visual inspection (metal trach in place) Respiratory: normal respiratory effort, lungs clear to auscultation Cardiovascular: RRR, no murmur, no edema Chest (Breasts): Chest: normal inspection of chest Breast: no breast mass (On the right) and no breast tenderness (On the right) Gastrointestinal (Abdomen): normal bowel sounds, soft, nontender, no hepatosplenomegaly Musculoskeletal: Extremities: extremities normal to inspection; no cyanosis and no clubbing Skin: no rashes, warm and dry + ulcer (Right lateral breast, superficial,scab now formed) Neurologic: moves all extremities and awake; no focal motor deficits Psychiatric: A+Ox3, euthymic affect Lymphatic: no lymphedema Results & Data Results & Data ([facility]) Vital Signs (Past 12 Hours) Vital Signs Temp Pulse Resp BP Pulse Ox O2 Del Method 08/15/22 15:56 74 20 95 Room Air 08/15/22 14:53 36.6 C 82 18 129/64 94 Room Air 08/15/22 13:16 Room Air 08/15/22 11:23 74 20 95 Room Air 08/15/22 07:20 68 20 95 Room Air 08/15/22 06:00 36.5 C 65 22 135/70 96 Room Air PG Care Time/CCT Total # of Minutes Spent Total Time Spent with Patient: Total time spent is greater than 50% in coordination of care (as documented) at patient's floor/unit and/or counseling patient: Coding Level of Care Code 67928 Subseq Hosp Care Lvl 1 Diagnoses Weakness R53.1 CKD (chronic kidney disease) stage 4, GFR 15-29 ml/min N18.4 Morbid obesity E66.01 Type 2 diabetes mellitus E11.9 Chronic respiratory failure J96.10 Respiratory failure complication: unspecified whether with hypoxia or hypercapnia HTN (hypertension) I10 Hypoventilation associated with obesity E66.2 Chronic diastolic congestive heart failure I50.32 Wound, breast S21.009A Hypothyroidism (acquired) E03.9 GERD (gastroesophageal reflux disease) K21.9 Dyslipidemia E78.5 Coronary artery disease I25.10 Chest pain R07.9 (1) Chronic respiratory failure Respiratory failure complication: unspecified whether with hypoxia or hypercapnia Qualified Code(s): J96.10 - Chronic respiratory failure, unspecified whether with hypoxia or hypercapnia
[2022-08-15] MEDS: ENOXAPARIN INJ 40 MG/0.4 ML SYR SQ SCH (21:43)
[2022-08-15] MEDS: MONTELUKAST SODIUM 10 MG TABLET PO SCH (21:45)
[2022-08-15] MEDS: ATORVASTATIN 40 MG TAB PO SCH (21:47)
[2022-08-16] MEDS: TORSEMIDE 10 MG TAB PO SCH ×2 (05:16→13:35)
[2022-08-16] MEDS: LEVOTHYROXINE SODIUM 200 MCG TABLET PO SCH (05:17)
[2022-08-16] MEDS: Ipratropium HFA Inhaler (Combivent Respimat P&T Subs) INH SCH ×4 (07:18→20:22)
[2022-08-16] MEDS: Albuterol HFA 8 GM Inhaler (Combivent Respimat P&T Subs) INH SCH ×4 (07:18→20:23)
[2022-08-16] MEDS: INSULIN ASPART PER UNIT SC SCH ×4 (08:33→21:38)
[2022-08-16] MEDS: LANTUS PER UNIT CHARGE SQ SCH ×2 (08:34→21:38)
[2022-08-16] MEDS: buPROPion SR 100 MG TABCR PO SCH ×2 (08:43→21:10)
[2022-08-16] MEDS: SPIRONOLACTONE 25 MG TAB PO SCH (08:44)
[2022-08-16] MEDS: ASPIRIN 81 MG ECTAB PO SCH (08:44)
[2022-08-16] MEDS: FOLIC ACID 1 MG TAB PO SCH (08:44)
[2022-08-16] MEDS: TOPIRAMATE 100 MG TAB PO SCH ×2 (08:44→21:10)
[2022-08-16] MEDS: lisinopril 2.5 MG TAB PO SCH (08:45)
[2022-08-16] MEDS: METOPROLOL TARTRATE 25 MG TAB PO SCH ×2 (08:45→21:11)
[2022-08-16] MEDS: ISOSORBIDE MONO EXTENDED REL 60 MG TABCR PO SCH (08:45)
[2022-08-16] MEDS: ADVANCED PROBIOTIC 1250 MG CAPSULE PO SCH (08:46)
[2022-08-16] MEDS: MULTIVITAMIN TAB PO SCH (08:46)
[2022-08-16] MEDS: PANTOprazole 40 MG TAB PO SCH ×2 (08:46→21:09)
[2022-08-16] MEDS: POTASSIUM CHLORIDE CRTAB 20 MEQ TABCR PO SCH ×2 (08:47→21:12)
[2022-08-16] MEDS: DICLOFENAC SOD 1% GEL 100 GM TUBE EXT SCH ×4 (08:47→21:12)
[2022-08-16] MEDS: DOCUSATE SODIUM 100 MG CAP PO SCH ×2 (08:48→21:14)
--- NOTE | 2022-08-16 09:08 | Pharmacy Report ---
Pharmacy Glycemic Short Note 2 - Date of Service August 16, 2022 - Glycemic Short BSG Results (Last 24 hours): 08/15/22 08/15/22 08/15/22 11:57 17:01 20:27 POC Glucose 190 H 202 H 137 H 08/16/22 08:06 POC Glucose 154 H OUTPATIENT ANTIDIABETIC REGIMEN: * Jardiance 25mg PO daily * Patient on insulin pump in the past (Basal rate 6 units/hr, bolus with 50 units TID meals -- approx 200 units per day) * A1c 8.5% 03/24/22 ASSESSMENT: 08/16 * BSGs well controlled over last 24 hrs * 251 units SQ insulin given over last 24 hrs while tolerating diet * Fasting BSG 154 this AM, near goal, with 120 units basal on board - will continue * Post-prandial BSGs slightly elevated yesterday - will continue current CF/CR for one more day and follow post-prandials before further adjustment 08/13 * Fasting continues to be slightly above goal range, will increase lantus dose to 60 units BID * BSGs remain stable, will continue current novolog parameters 08/09 * No changes have been made to patient's insulin regimen for the past several days. Pt has been requiring ~200 units of insulin per day, with relatively stable BSGs. * Last evening, BSGs were somewhat elevated. If this becomes a trend, will consider tightening Novolog parameters. * Will continue to follow and adjust regimen as indicated. PLAN FOR INPATIENT GLYCEMIC CONTROL: * Hold outpatient oral diabetes medications * Basal insulin * Lantus 60 units SC BID * Bolus insulin * NovoLog per scale ACHS or Q6hrs while NPO * Goal Range: Low 110 mg/dL - High 140 mg/dL * Correction Factor: 5 mg/dL/unit * Nutritional / Prandial insulin per carb ratio of 1 unit per 1.5 grams CHO consumed
[2022-08-16] MEDS: oxyCODONE HCL IR 5 MG TAB (IMMEDIATE RELEASE) PO PRN (13:35)
[2022-08-16] MEDS: MONTELUKAST SODIUM 10 MG TABLET PO SCH (21:10)
[2022-08-16] MEDS: ATORVASTATIN 40 MG TAB PO SCH (21:11)
[2022-08-16] MEDS: ENOXAPARIN INJ 40 MG/0.4 ML SYR SQ SCH (21:12)
--- NOTE | 2022-08-16 21:48 | Hospitalist Progress Note ---
Date of Service August 16, 2022 Assessment & Plan (1) Weakness: Plan: Patient is a 67-year-old female who recently had a 4-month long stay at [facility] in [place] after sustaining a femur fracture She was there for prolonged stay only due to extreme difficulty finding rehab placement. She was discharged to a nursing facility in [place] for a short time and then was discharged from there to home where she was not able to care for herself and immediately came to our hospital for rehab placement PT/OT eval and treat, current goal subacute rehab at SNF-multiple referrals out and pending-difficult to find placement due to metal trach and need for bariatric bed with knee pain, x ray shows poor healing of femur with angulation, some callus formation Right leg NWB Seen by Dr. Su, indicates that femur fx is not healed and will likely not heal further * Could bear some weight as tolerated - but leg will be unstable and put her at risk of falls * Transfer bed to wheelchair with assistance of a walker * Needs SNF w/ rehab in order to get her to safely transfer She has been on oxycodone 10 mg p.o. every 6 hours as needed for pain since March-we will continue oxycodone prn pain-however, patient agreeable to weaning down the dose-trial of 5 mg p.o. every 6 hours as needed was unsuccessful-have since increased dose back to 10 Mg but made the frequency down to every 12 hours and encouraged her to use it prior to physical therapy-has not required any oxycodone in the last 3 days except for 1 dose prior to physical therapy on 08/16 -Continue Tylenol as needed for mild pain (2) CKD (chronic kidney disease) stage 4, GFR 15-29 ml/min: Plan: - Creatinine stable - Consult nephrology as per pt request-no changes to management -Urinary hesitancy is likely due to chronic opioid use-Will bladder scan with each shift to look for retention -Weaning off opioids -Avoid nephrotoxins -renally dose meds when appropriate (3) Morbid obesity: Plan: An unfortunate root cause of much of her comorbidities BMI 56.3 (4) Type 2 diabetes mellitus: Plan: A1c 8.9, insulin management, pharmacy glycemic consult appreciated -Is on massive doses of insulin here -Has an insulin pump prior to admission Empagliflozin held (5) Chronic respiratory failure: Plan: Stable. Probably predominantly OHS mediated with trach in place since 2007 Continue trach care routinely (6) HTN (hypertension): Plan: - Blood pressure has been acceptable, continue isosorbide, lisinopril, metoprolol, aldactone, torsemide (7) Hypoventilation associated with obesity: Plan: - Tracheostomy, clear, patient doing well - Discussed with patient regarding exchanging trach from metal to regular, not interested - [facility] (8) Chronic diastolic congestive heart failure: Plan: with cor pulmonale and cad Continued on torsemide, spironolactone, metoprolol, lisinopril, isosorbide, atorvastatin, aspirin (9) Wound, breast: Plan: Noted on exam on 08/12-a very superficial abrasion on the right lateral breast- seems likely secondary to either a pressure injury or friction injury? It has been present for approximately 1 week as per patient and I do not suspect breast cancer as was questioned by Wound Care nurse Follow clinically and continue dressing changes as per wound care-improving as of 08/15 (10) Hypothyroidism (acquired): Plan: TSH was normal at 2.09 in 11/2021 -Continue home levothyroxine 200 mcg once daily (11) GERD (gastroesophageal reflux disease): Plan: Continue Protonix 40 Mg p.o. twice daily (12) Dyslipidemia: Plan: Continue statin (13) Coronary artery disease: Plan: As above (14) Chest pain: Plan: Remains Chest pain-free, of note patient with substantial pain relief using Voltaren and pain was reproducible on palpation No EKG findings consistent with ischemia. High-sensitivity troponin 7.5, stable No shortness of breath, Mucous plug versus anxiety with initial episode Patient doing well on medical surgical, pending SNF, her non weight bearing on right leg now maybe issue ISSUE RESOLVED Plan DVT prophylaxis with Lovenox. Disposition-case management on consult to assist in dc planning. She is medically stable for discharge. Multiple referrals sent out and are pending. Dispo remains uncertain as she has multiple factors complicating facility's ability to care for patient given her need for bariatric bed + metal trach. Of note, if remains here custodial, would need to ensure medications are renewed q30 days Admission and Anticipated Discharge Date Admission Date: July 25, 2022 Subjective Patient has no complaints. She took the pain medicine today prior to physical therapy and had no pain with therapy and was pleased with this. Is moving bowels, eating well, no other concerns. Review of Systems Review of Systems: All systems reviewed & are unremarkable except as noted in HPI & below Physical Exam Constitutional: WD/WN, vitals as above Eyes: + anicteric sclerae Neck: + abnormal visual inspection (metal trach in place) Respiratory: normal respiratory effort, lungs clear to auscultation Cardiovascular: RRR, no murmur, no edema Chest (Breasts): Chest: normal inspection of chest Gastrointestinal (Abdomen): normal bowel sounds, soft, nontender, no hepatosplenomegaly Musculoskeletal: Extremities: extremities normal to inspection; no cyanosis and no clubbing Skin: no rashes, warm and dry Neurologic: moves all extremities and awake; no focal motor deficits Psychiatric: A+Ox3, euthymic affect Lymphatic: no lymphedema Results & Data Results & Data ([facility]) Vital Signs (Past 12 Hours) Vital Signs Temp Pulse Resp BP Pulse Ox O2 Del Method FiO2 08/16/22 20:23 87 22 94 Room Air 08/16/22 16:07 88 14 98 Room Air 21 08/16/22 15:18 36.8 C 81 18 129/71 96 Room Air 08/16/22 10:28 72 20 97 Room Air PG Care Time/CCT Total # of Minutes Spent Total Time Spent with Patient: Total time spent is greater than 50% in coordination of care (as documented) at patient's floor/unit and/or counseling patient: Coding Level of Care Code 83117 Subseq Hosp Care Lvl 1 Diagnoses Weakness R53.1 CKD (chronic kidney disease) stage 4, GFR 15-29 ml/min N18.4 Morbid obesity E66.01 Type 2 diabetes mellitus E11.9 Chronic respiratory failure J96.10 Respiratory failure complication: unspecified whether with hypoxia or hypercapnia HTN (hypertension) I10 Hypoventilation associated with obesity E66.2 Chronic diastolic congestive heart failure I50.32 Wound, breast S21.009A Hypothyroidism (acquired) E03.9 GERD (gastroesophageal reflux disease) K21.9 Dyslipidemia E78.5 Coronary artery disease I25.10 Chest pain R07.9 (1) Chronic respiratory failure Respiratory failure complication: unspecified whether with hypoxia or hypercapnia Qualified Code(s): J96.10 - Chronic respiratory failure, unspecified whether with hypoxia or hypercapnia
[2022-08-16] MEDS: ALUMINUM/MAGNESIUM SUSP 30 ML UDC PO PRN (22:14)
[2022-08-17] MEDS: LEVOTHYROXINE SODIUM 200 MCG TABLET PO SCH (06:05)
[2022-08-17] MEDS: Albuterol HFA 8 GM Inhaler (Combivent Respimat P&T Subs) INH SCH ×4 (07:07→19:20)
[2022-08-17] MEDS: Ipratropium HFA Inhaler (Combivent Respimat P&T Subs) INH SCH ×4 (07:07→19:19)
[2022-08-17] MEDS: INSULIN ASPART PER UNIT SC SCH ×4 (08:26→21:03)
[2022-08-17] MEDS: LANTUS PER UNIT CHARGE SQ SCH ×2 (08:27→21:02)
[2022-08-17] MEDS: TORSEMIDE 10 MG TAB PO SCH ×2 (08:34→13:39)
[2022-08-17] MEDS: lisinopril 2.5 MG TAB PO SCH (08:35)
[2022-08-17] MEDS: SPIRONOLACTONE 25 MG TAB PO SCH (08:35)
[2022-08-17] MEDS: ASPIRIN 81 MG ECTAB PO SCH (08:35)
[2022-08-17] MEDS: POTASSIUM CHLORIDE CRTAB 20 MEQ TABCR PO SCH ×2 (08:35→20:48)
[2022-08-17] MEDS: MULTIVITAMIN TAB PO SCH (08:36)
[2022-08-17] MEDS: FOLIC ACID 1 MG TAB PO SCH (08:36)
[2022-08-17] MEDS: ISOSORBIDE MONO EXTENDED REL 60 MG TABCR PO SCH (08:36)
[2022-08-17] MEDS: METOPROLOL TARTRATE 25 MG TAB PO SCH ×2 (08:37→20:49)
[2022-08-17] MEDS: buPROPion SR 100 MG TABCR PO SCH ×2 (08:37→20:48)
[2022-08-17] MEDS: DICLOFENAC SOD 1% GEL 100 GM TUBE EXT SCH ×4 (08:38→20:49)
[2022-08-17] MEDS: PANTOprazole 40 MG TAB PO SCH ×2 (08:38→20:48)
[2022-08-17] MEDS: TOPIRAMATE 100 MG TAB PO SCH ×2 (08:38→20:48)
[2022-08-17] MEDS: ADVANCED PROBIOTIC 1250 MG CAPSULE PO SCH (08:38)
[2022-08-17] MEDS: DOCUSATE SODIUM 100 MG CAP PO SCH ×2 (10:34→21:02)
[2022-08-17] MEDS: oxyCODONE HCL IR 5 MG TAB (IMMEDIATE RELEASE) PO PRN (11:21)
[2022-08-17] MEDS: ACETAMINOPHEN 500 MG TAB PO PRN (13:40)
[2022-08-17] MEDS: ATORVASTATIN 40 MG TAB PO SCH (20:48)
[2022-08-17] MEDS: MONTELUKAST SODIUM 10 MG TABLET PO SCH (20:48)
[2022-08-17] MEDS: ENOXAPARIN INJ 40 MG/0.4 ML SYR SQ SCH (20:49)
--- NOTE | 2022-08-17 20:59 | Hospitalist Progress Note ---
Date of Service August 17, 2022 Assessment & Plan (1) Weakness: Plan: Prior to this admission patient had 4-month long stay at [facility] in [place] after sustaining a RIGHT femur fracture. She was there for prolonged stay due to extreme difficulty finding rehab placement. She was discharged to a nursing facility in [place] for a short time (~2 weeks) and then was discharged from there to home. Upon arrival home she could not ambulate/transfer into the house; collapsed to the ground; EMS advised her going to [facility]. Admitted here on 07/24/22. Weakness is 2nd to severe deconditioning due to prolonged immobilization/institutionalization. TSH 11/2021 wnl. Check a b12 level in am. Check a 25-OH vit D level in am. Recheck routine labs for stability. (2) Fracture of distal end of right femur: Plan: RIGHT. 2021. s/p admission to [facility] for such. treated nonoperatively there. Seen by Dr. Su, indicates that femur fx is not healed and will likely not heal further * Cont NWB status to RLE * Transfer bed to wheelchair with assistance of a walker * Needs SNF w/ rehab in order to get her to safely transfer Cont pain meds prn Cont tylenol prn Check 25-OH vit D level am. (3) CKD (chronic kidney disease) stage 4, GFR 15-29 ml/min: Plan: repeat BMP in am for stability (4) Morbid obesity: Plan: BMI 56.3 (5) Type 2 diabetes mellitus: Plan: HbA1c 8.9% pharmacy glycemic team managing her DM; appreciate their assistance Is on large doses of insulin here Had an insulin pump prior to admission Empagliflozin held Control satisfactory at this time (6) Chronic respiratory failure: Plan: Stable. 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 Hold ADRIANNA Continue Imdur but lower dose to 30mg daily Cont metoprolo Cont aldactone and torsemide Check BMP/mag am e (8) Hypoventilation associated with obesity: Plan: Tracheostomy in place Follows with [facility]NT for her chronic trach No issues at this time (9) Chronic diastolic congestive heart failure: Plan: Compensated Cont diuretics & BB Hold ADRIANNA (10) Wound, breast: Plan: right seen by Wound Care nurse continue dressing changes as per wound care team (11) Hypothyroidism (acquired): Plan: TSH was normal at 2.09 in 11/2021 Recheck TSH in am Continue home levothyroxine 200 mcg once daily (12) GERD (gastroesophageal reflux disease): Plan: Continue Protonix 40 Mg p.o. twice daily (13) Dyslipidemia: Plan: Continue statin (14) Coronary artery disease: Plan: As above Cont asa, statin, BB, imdur Plan DVT prophylaxis with Lovenox. Should likely be on BID dosing given morbid obesity -await BMP in am to ensure creatinine is stable. Disposition-case management on consult to assist in dc planning. She is medically stable for discharge. Multiple referrals sent out and are pending. Di spo remains uncertain as she has multiple factors complicating facility's ability to care for patient given her need for bariatric bed + metal trach. Admission and Anticipated Discharge Date Admission Date: July 25, 2022 Subjective patient sat in the chair for a while today only complaint is chronic right leg pain eating well no new issues Review of Systems Review of Systems: cv- no cp pulm- no dyspnea; no sputum production from tach GI- no abd pain or nausea/emesis; moving bowels Physical Exam Physical Exam: gen - morbidly obese, NAD mouth - MMM, no thrush neck - trach in place, no secretions heart - tones are distant, s1 s2, no obvious murmur lungs - CTA b/l abd - soft NT ND BS+ ext - no edema, pulses 2+ b/l Results & Data Results & Data ([facility]) Vital Signs (Past 12 Hours) Vital Signs Temp Pulse Resp BP Pulse Ox O2 Del Method 08/17/22 19:20 78 22 94 Room Air 08/17/22 16:14 72 20 96 Room Air 08/17/22 15:15 36.5 C 77 16 93/56 L 91 Room Air 08/17/22 11:58 67 18 95 Room Air Laboratory Results Laboratory Results - last 24 hr 08/17/22 08/17/22 08/17/22 08:02 12:11 17:05 POC Glucose 129 H 134 H 201 H 08/17/22 20:47 POC Glucose 129 H PG Care Time/CCT Total # of Minutes Spent Total Time Spent with Patient: Total time spent is greater than 50% in coordination of care (as documented) at patient's floor/unit and/or counseling patient: Coding Level of Care Code 21023 Subseq Hosp Care Lvl 2 Diagnoses Weakness R53.1 Fracture of distal end of right femur S72.401A CKD (chronic kidney disease) stage 4, GFR 15-29 ml/min N18.4 Morbid obesity E66.01 Type 2 diabetes mellitus E11.9 Chronic respiratory failure J96.10 Respiratory failure complication: unspecified whether with hypoxia or hypercapnia HTN (hypertension) I10 Hypoventilation associated with obesity E66.2 Chronic diastolic congestive heart failure I50.32 Wound, breast S21.009A Hypothyroidism (acquired) E03.9 GERD (gastroesophageal reflux disease) K21.9 Dyslipidemia E78.5 Coronary artery disease I25.10 (1) Chronic respiratory failure Respiratory failure complication: unspecified whether with hypoxia or hypercapnia Qualified Code(s): J96.10 - Chronic respiratory failure, unspecified whether with hypoxia or hypercapnia
[2022-08-18] MEDS: LEVOTHYROXINE SODIUM 200 MCG TABLET PO SCH (05:45)
[2022-08-18 06:48] LABS: Hematocrit (blood only) 35.5 % (34.1-44.9); Hemoglobin 11.3 g/dl (12.0-16.0); Mean Corpuscular Hemoglobin 29.1 pg (25.0-34.0); Mean Corpuscular Hgb Conc 31.8 g/dL (32.0-36.0); Mean Corpuscular Volume 91.5 fL (80.0-100.0); Mean Platelet Volume 10.3 fL (9.4-12.3); Platelet Count 247 K/uL (130-400); RDW Coefficient of Variation 14.6 % (11.5-14.5); RDW Standard Deviation 49.3 fL (36.4-46.3); Red Blood Count 3.88 M/uL (3.93-5.22); White Blood Count 8.76 K/ul (4.8-10.8)
[2022-08-18] MEDS: Albuterol HFA 8 GM Inhaler (Combivent Respimat P&T Subs) INH SCH ×4 (07:08→19:27)
[2022-08-18] MEDS: Ipratropium HFA Inhaler (Combivent Respimat P&T Subs) INH SCH ×4 (07:09→19:27)
[2022-08-18 07:26] LABS: BUN Creatinine Ratio 30.2 (10-20); Calcium 9.4 mg/dl (8.5-10.1); Creatinine Clr Calc Pharmacy 47.2 ml/min; Est GFR (African American) 38.8 ml/min; Est GFR (Non-African American) 33.5 ml/min; Magnesium 2.2 mg/dl (1.7-2.4); Potassium 4.4 mmol/L (3.5-5.1)
[2022-08-18] MEDS: INSULIN ASPART PER UNIT SC SCH ×4 (09:03→21:06)
[2022-08-18] MEDS: LANTUS PER UNIT CHARGE SQ SCH ×2 (09:04→21:06)
[2022-08-18] MEDS: POTASSIUM CHLORIDE CRTAB 20 MEQ TABCR PO SCH ×2 (09:11→20:51)
[2022-08-18] MEDS: TORSEMIDE 10 MG TAB PO SCH ×2 (09:11→14:58)
[2022-08-18] MEDS: METOPROLOL TARTRATE 25 MG TAB PO SCH ×2 (09:12→20:50)
[2022-08-18] MEDS: PANTOprazole 40 MG TAB PO SCH ×2 (09:12→20:51)
[2022-08-18] MEDS: SPIRONOLACTONE 25 MG TAB PO SCH (09:13)
[2022-08-18] MEDS: FOLIC ACID 1 MG TAB PO SCH (09:13)
[2022-08-18] MEDS: ADVANCED PROBIOTIC 1250 MG CAPSULE PO SCH (09:13)
[2022-08-18] MEDS: buPROPion SR 100 MG TABCR PO SCH ×2 (09:13→20:49)
[2022-08-18] MEDS: ASPIRIN 81 MG ECTAB PO SCH (09:14)
[2022-08-18] MEDS: MULTIVITAMIN TAB PO SCH (09:14)
[2022-08-18] MEDS: TOPIRAMATE 100 MG TAB PO SCH ×2 (09:14→20:51)
[2022-08-18] MEDS: DOCUSATE SODIUM 100 MG CAP PO SCH ×2 (09:16→20:50)
[2022-08-18] MEDS: ISOSORBIDE MONO EXTENDED REL 30 MG TABCR PO SCH (10:58)
[2022-08-18] MEDS: DICLOFENAC SOD 1% GEL 100 GM TUBE EXT SCH ×4 (10:58→20:49)
--- NOTE | 2022-08-18 12:21 | Pharmacy Report ---
Pharmacy Glycemic Short Note 2 - Date of Service August 18, 2022 - Glycemic Short BSG Results (Last 24 hours): 08/17/22 08/17/22 08/18/22 17:05 20:47 06:22 Glucose 141 H POC Glucose 201 H 129 H 08/18/22 08/18/22 08:03 12:06 Glucose POC Glucose 139 H 157 H OUTPATIENT ANTIDIABETIC REGIMEN: * Jardiance 25mg PO daily * Patient on insulin pump in the past (Basal rate 6 units/hr, bolus with 50 units TID meals -- approx 200 units per day) * A1c 8.5% 03/24/22 ASSESSMENT: 08/18/22 * BSGs yesterday were [phone] mg/dL. Patient received 239 units of insulin (120 units of basal and 119 units of bolus). * Fasting today is 139 mg/dL. * Will continue insulin as patient's BSGs are reasonably stable. 08/16 * BSGs well controlled over last 24 hrs * 251 units SQ insulin given over last 24 hrs while tolerating diet * Fasting BSG 154 this AM, near goal, with 120 units basal on board - will continue * Post-prandial BSGs slightly elevated yesterday - will continue current CF/CR for one more day and follow post-prandials before further adjustment 08/13 * Fasting continues to be slightly above goal range, will increase lantus dose to 60 units BID * BSGs remain stable, will continue current novolog parameters 08/09 * No changes have been made to patient's insulin regimen for the past several days. Pt has been requiring ~200 units of insulin per day, with relatively stable BSGs. * Last evening, BSGs were somewhat elevated. If this becomes a trend, will consider tightening Novolog parameters. * Will continue to follow and adjust regimen as indicated. PLAN FOR INPATIENT GLYCEMIC CONTROL: * Hold outpatient oral diabetes medications * Basal insulin * Lantus 60 units SC BID * Bolus insulin * NovoLog per scale ACHS or Q6hrs while NPO * Goal Range: Low 110 mg/dL - High 140 mg/dL * Correction Factor: 5 mg/dL/unit * Nutritional / Prandial insulin per carb ratio of 1 unit per 1.5 grams CHO consumed
[2022-08-18] MEDS: oxyCODONE HCL IR 5 MG TAB (IMMEDIATE RELEASE) PO PRN (12:59)
[2022-08-18] MEDS: ACETAMINOPHEN 500 MG TAB PO PRN (19:32)
[2022-08-18] MEDS: ATORVASTATIN 40 MG TAB PO SCH (20:49)
[2022-08-18] MEDS: MELATONIN 3 MG TAB PO SCH (20:50)
[2022-08-18] MEDS: ENOXAPARIN INJ 40 MG/0.4 ML SYR SQ SCH (20:50)
[2022-08-18] MEDS: MONTELUKAST SODIUM 10 MG TABLET PO SCH (20:51)
--- NOTE | 2022-08-18 21:38 | Hospitalist Progress Note ---
Date of Service August 18, 2022 Assessment & Plan (1) Weakness: Plan: Prior to this admission patient had 4-month long stay at [facility] in [place] after sustaining a RIGHT femur fracture. She was there for prolonged stay due to extreme difficulty finding rehab placement. She was discharged to a nursing facility in [place] for a short time (~2 weeks) and then was discharged from there to home. Upon arrival home she could not ambulate/transfer into the house; collapsed to the ground; EMS advised her going to [facility]. Admitted here on 07/24/22. Weakness is 2nd to severe deconditioning due to prolonged immobilization/institutionalization. TSH 11/2021 wnl. TSH mildly high thus will increase synthroid as below. B12 level wnl. 25-OH vit D level wnl. Work on sleep issues. Trial of melatonin. Other labs today wnl. (2) Fracture of distal end of right femur: Plan: RIGHT. 2021. s/p admission to [facility] for such. treated nonoperatively there. Seen by Dr. Su, indicates that femur fx is not healed and will likely not heal further * Cont NWB status to RLE * Transfer bed to wheelchair with assistance of a walker * Needs SNF w/ rehab in order to get her to safely transfer Cont pain meds prn Cont tylenol prn 25-OH vit D level wnl today. (3) CKD (chronic kidney disease) stage 4, GFR 15-29 ml/min: Plan: Cr stable today (4) Morbid obesity: Plan: BMI 56.3 (5) Type 2 diabetes mellitus: Plan: HbA1c 8.9% pharmacy glycemic team managing her DM; appreciate their assistance Is on large doses of insulin here Had an insulin pump prior to admission Empagliflozin held Control remains satisfactory at this time (6) Chronic respiratory failure: Plan: Stable. 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 Hold ADRIANNA Continue Imdur but lower dose to 30mg daily Cont metoprolol Cont aldactone and torsemide BMP/mag wnl today (8) Hypoventilation associated with obesity: Plan: Tracheostomy in place Follows with [facility] for her chronic trach No issues at this time (9) Chronic diastolic congestive heart failure: Plan: Compensated Cont diuretics & BB Hold ADRIANNA due to low-normal BPs (10) Wound, breast: Plan: right seen by Wound Care nurse continue dressing changes as per wound care team (11) Hypothyroidism (acquired): Plan: TSH was normal at 2.09 in 11/2021 TSH today mildly high Continue home levothyroxine but increase dose to 225mcg from 200mcg once daily repeat TSH 6 weeks (12) GERD (gastroesophageal reflux disease): Plan: Continue Protonix 40 Mg p.o. twice daily (13) Dyslipidemia: Plan: Continue statin (14) Coronary artery disease: Plan: As above Cont asa, statin, BB, imdur Plan DVT prophylaxis with Lovenox. Disposition-case management on consult to assist in dc planning. She is medically stable for discharge. Multiple referrals sent out and are pending. Dispo remains uncertain as she has multiple factors complicating facility's ability to care for patient given her need for bariatric bed + metal trach. daughter updated by phone this evening Admission and Anticipated Discharge Date Admission Date: July 25, 2022 Subjective mentions poor sleep if she wakes up in the middle of the night she can't fall back asleep otherwise no new complaints worked with PT today got out to the chair, sat in chair for about an hour Review of Systems Review of Systems: gen - sleepy today and tired; good appetite cv - no orthopnea pulm - no dyspnea; no secretions from trach GI - no abd pain; moved bowels yesterday Physical Exam Physical Exam: gen - morbidly obese, NAD mouth - MMM, no thrush neck - trach in place, no secretions heart - heart tones are distant, but s1 s2, no obvious murmur, RRR lungs - CTA b/l abd - soft NT ND BS+ ext - no edema, pulses 2+ b/l Results & Data Results & Data ([facility]) Vital Signs (Past 12 Hours) Vital Signs Pulse Resp Pulse Ox O2 Del Method 08/18/22 19:28 75 20 94 Room Air 08/18/22 15:50 70 20 94 Room Air 08/18/22 11:05 64 20 96 Room Air Laboratory Results Laboratory Results - last 24 hr 08/18/22 08/18/22 08/18/22 06:22 06:22 06:22 WBC 8.76 RBC 3.88 L Hgb 11.3 L Hct 35.5 MCV 91.5 MCH 29.1 MCHC 31.8 L RDW Std Deviation 49.3 H RDW Coeff of Amee 14.6 H Plt Count 247 MPV 10.3 Sodium 135 L Potassium 4.4 Chloride 107 Carbon Dioxide 22 Anion Gap 6 BUN 48 H Creatinine 1.59 H Est Cr Clr Drug Dosing 47.2 Est GFR ( Amer) 38.8 Est GFR (Non-Af Amer) 33.5 BUN/Creatinine Ratio 30.2 H Glucose 141 H POC Glucose Calcium 9.4 Magnesium 2.2 Vitamin B12 25-OH Vitamin D Total 35.6 TSH 08/18/22 08/18/22 08/18/22 06:22 06:22 08:03 WBC RBC Hgb Hct MCV MCH MCHC RDW Std Deviation RDW Coeff of Amee Plt Count MPV Sodium Potassium Chloride Carbon Dioxide Anion Gap BUN Creatinine Est Cr Clr Drug Dosing Est GFR ( Amer) Est GFR (Non-Af Amer) BUN/Creatinine Ratio Glucose POC Glucose 139 H Calcium Magnesium Vitamin B12 1181 H 25-OH Vitamin D Total TSH 5.874 H 08/18/22 08/18/22 08/18/22 12:06 17:11 20:54 WBC RBC Hgb Hct MCV MCH MCHC RDW Std Deviation RDW Coeff of Amee Plt Count MPV Sodium Potassium Chloride Carbon Dioxide Anion Gap BUN Creatinine Est Cr Clr Drug Dosing Est GFR ( Amer) Est GFR (Non-Af Amer) BUN/Creatinine Ratio Glucose POC Glucose 157 H 142 H 186 H Calcium Magnesium Vitamin B12 25-OH Vitamin D Total TSH PG Care Time/CCT Total # of Minutes Spent Total Time Spent with Patient: Total time spent is greater than 50% in coordination of care (as documented) at patient's floor/unit and/or counseling patient: Coding Level of Care Code 47083 Subseq Hosp Care Lvl 2 Diagnoses Weakness R53.1 Fracture of distal end of right femur S72.401A CKD (chronic kidney disease) stage 4, GFR 15-29 ml/min N18.4 Morbid obesity E66.01 Type 2 diabetes mellitus E11.9 Chronic respiratory failure J96.10 Respiratory failure complication: unspecified whether with hypoxia or hype rcapnia HTN (hypertension) I10 Hypoventilation associated with obesity E66.2 Chronic diastolic congestive heart failure I50.32 Wound, breast S21.009A Hypothyroidism (acquired) E03.9 GERD (gastroesophageal reflux disease) K21.9 Dyslipidemia E78.5 Coronary artery disease I25.10 (1) Chronic respiratory failure Respiratory failure complication: unspecified whether with hypoxia or hypercapnia Qualified Code(s): J96.10 - Chronic respiratory failure, unspecified whether with hypoxia or hypercapnia
[2022-08-19] MEDS: LEVOTHYROXINE SODIUM 75 MCG TABLET PO SCH (06:27)
[2022-08-19] MEDS: Ipratropium HFA Inhaler (Combivent Respimat P&T Subs) INH SCH ×4 (07:37→21:13)
[2022-08-19] MEDS: Albuterol HFA 8 GM Inhaler (Combivent Respimat P&T Subs) INH SCH ×4 (07:38→21:13)
[2022-08-19] MEDS: PANTOprazole 40 MG TAB PO SCH ×2 (08:12→20:28)
[2022-08-19] MEDS: FOLIC ACID 1 MG TAB PO SCH (08:13)
[2022-08-19] MEDS: TOPIRAMATE 100 MG TAB PO SCH ×2 (08:13→20:29)
[2022-08-19] MEDS: buPROPion SR 100 MG TABCR PO SCH ×2 (08:13→20:26)
[2022-08-19] MEDS: SPIRONOLACTONE 25 MG TAB PO SCH (08:13)
[2022-08-19] MEDS: METOPROLOL TARTRATE 25 MG TAB PO SCH ×2 (08:14→20:27)
[2022-08-19] MEDS: ISOSORBIDE MONO EXTENDED REL 30 MG TABCR PO SCH (08:14)
[2022-08-19] MEDS: ASPIRIN 81 MG ECTAB PO SCH (08:14)
[2022-08-19] MEDS: TORSEMIDE 10 MG TAB PO SCH ×2 (08:14→14:12)
[2022-08-19] MEDS: MULTIVITAMIN TAB PO SCH (08:14)
[2022-08-19] MEDS: ADVANCED PROBIOTIC 1250 MG CAPSULE PO SCH (08:14)
[2022-08-19] MEDS: DICLOFENAC SOD 1% GEL 100 GM TUBE EXT SCH ×4 (08:15→20:26)
[2022-08-19] MEDS: POTASSIUM CHLORIDE CRTAB 20 MEQ TABCR PO SCH ×2 (08:15→20:28)
[2022-08-19] MEDS: INSULIN ASPART PER UNIT SC SCH ×4 (08:19→21:20)
[2022-08-19] MEDS: LANTUS PER UNIT CHARGE SQ SCH ×2 (08:19→21:20)
[2022-08-19] MEDS: DOCUSATE SODIUM 100 MG CAP PO SCH ×2 (08:24→20:27)
[2022-08-19] MEDS: ALUMINUM/MAGNESIUM SUSP 30 ML UDC PO PRN ×2 (11:24→22:13)
--- NOTE | 2022-08-19 12:23 | Pharmacy Report ---
Pharmacy Glycemic Short Note 2 - Date of Service August 19, 2022 - Glycemic Short BSG Results (Last 24 hours): 08/18/22 08/18/22 08/19/22 17:11 20:54 08:13 POC Glucose 142 H 186 H 151 H 08/19/22 12:12 POC Glucose 178 H OUTPATIENT ANTIDIABETIC REGIMEN: * Jardiance 25mg PO daily * Patient on insulin pump in the past (Basal rate 6 units/hr, bolus with 50 units TID meals -- approx 200 units per day) * A1c 8.5% 03/24/22 ASSESSMENT: 08/19/22 * Patient's BSGs yesterday were [phone] mg/dL. Fasting today is 151 mg/dL. * Since fasting is still slightly above goal will increase basal by 10% to 65 units BID. * Continue Novolog as BSGs reasonable. Could consider tighten CR slightly to 1.25 if BSGs continue to trend upwards throughout the day. 08/18/22 * BSGs yesterday were [phone] mg/dL. Patient received 239 units of insulin (120 units of basal and 119 units of bolus). * Fasting today is 139 mg/dL. * Will continue insulin as patient's BSGs are reasonably stable. 08/16 * BSGs well controlled over last 24 hrs * 251 units SQ insulin given over last 24 hrs while tolerating diet * Fasting BSG 154 this AM, near goal, with 120 units basal on board - will continue * Post-prandial BSGs slightly elevated yesterday - will continue current CF/CR for one more day and follow post-prandials before further adjustment 08/13 * Fasting continues to be slightly above goal range, will increase lantus dose to 60 units BID * BSGs remain stable, will continue current novolog parameters 08/09 * No changes have been made to patient's insulin regimen for the past several days. Pt has been requiring ~200 units of insulin per day, with relatively stable BSGs. * Last evening, BSGs were somewhat elevated. If this becomes a trend, will consider tightening Novolog parameters. * Will continue to follow and adjust regimen as indicated. PLAN FOR INPATIENT GLYCEMIC CONTROL: * Hold outpatient oral diabetes medications * Basal insulin * Lantus 65 units SC BID * Bolus insulin * NovoLog per scale ACHS or Q6hrs while NPO * Goal Range: Low 110 mg/dL - High 140 mg/dL * Correction Factor: 5 mg/dL/unit * Nutritional / Prandial insulin per carb ratio of 1 unit per 1.5 grams CHO consumed
[2022-08-19] MEDS: oxyCODONE HCL IR 5 MG TAB (IMMEDIATE RELEASE) PO PRN ×2 (14:11→22:12)
[2022-08-19] MEDS: ATORVASTATIN 40 MG TAB PO SCH (20:25)
[2022-08-19] MEDS: MELATONIN 3 MG TAB PO SCH (20:27)
[2022-08-19] MEDS: ENOXAPARIN INJ 40 MG/0.4 ML SYR SQ SCH (20:27)
[2022-08-19] MEDS: MONTELUKAST SODIUM 10 MG TABLET PO SCH (20:28)
--- NOTE | 2022-08-19 20:59 | Hospitalist Progress Note ---
Date of Service August 19, 2022 Assessment & Plan (1) Weakness: Plan: Prior to this admission patient had 4-month long stay at [facility] in [place] after sustaining a RIGHT femur fracture. She was there for prolonged stay due to extreme difficulty finding rehab placement. She was discharged to a nursing facility in [place] for a short time (~2 weeks) and then was discharged from there to home. Upon arrival home she could not ambulate/transfer into the house; collapsed to the ground; EMS advised her going to [facility]. Admitted here on 07/24/22. Weakness is 2nd to severe deconditioning due to prolonged immobilization/institutionalization. TSH 11/2021 wnl. TSH mildly high thus increased synthroid as below. B12 level wnl. 25-OH vit D level wnl. (2) Fracture of distal end of right femur: Plan: RIGHT. 2021. s/p admission to [facility] for such. treated nonoperatively there. Seen by Dr. Su, indicates that femur fx is not healed and will likely not heal further * Cont NWB status to RLE * Transfer bed to wheelchair with assistance of a walker * Needs SNF w/ rehab in order to get her to safely transfer Cont pain meds prn - adjust oxycodone from q12h dosing to q8h dosing increase voltaren gel to 4gm QID to R knee will obtain x-rays in am of R knee for interval change 25-OH vit D level wnl this admission. (3) CKD (chronic kidney disease) stage 4, GFR 15-29 ml/min: Plan: Cr stable this admission (4) Morbid obesity: Plan: BMI 56.3 (5) Type 2 diabetes mellitus: Plan: HbA1c 8.9% pharmacy glycemic team managing her DM; appreciate their assistance Is on large doses of insulin here Had an insulin pump prior to admission Empagliflozin held Control remains satisfactory at this time (6) Chronic respiratory failure: Plan: Stable. 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 Holding ADRIANNA Continue Imdur at lower dose of 30mg daily Cont metoprolol Cont aldactone and torsemide BMP/mag wnl yesterday (8) Hypoventilation associated with obesity: Plan: Tracheostomy in place Follows with [facility] for her chronic trach No issues at this time (9) Chronic diastolic congestive heart failure: Plan: Compensated Cont diuretics & BB (10) Wound, breast: Plan: right seen by Wound Care nurse continue dressing changes as per wound care team (11) Hypothyroidism (acquired): Plan: TSH was normal at 2.09 in 11/2021 TSH 08/18/22 mildly high Continue home levothyroxine but increased dose to 225mcg from 200mcg once daily repeat TSH 6 weeks (12) GERD (gastroesophageal reflux disease): Plan: Continue Protonix 40 Mg p.o. twice daily (13) Dyslipidemia: Plan: Continue statin (14) Coronary artery disease: Plan: As above Cont asa, statin, BB, imdur Plan DVT prophylaxis with Lovenox. Disposition-case management on consult to assist in dc planning. She is medically stable for discharge. Multiple referrals sent out and are pending. Dispo remains uncertain as she has multiple factors complicating facility's ability to care for patient given her need for bariatric bed + metal trach. daughter updated by phone 08/18/22 Admission and Anticipated Discharge Date Admission Date: July 25, 2022 Subjective pt c/o right knee pain asks for oxycodone to be adjusted slept "VERY WELL" last pm w/ melatonin again worked with PT today no new issues Review of Systems Review of Systems: pulm - no dyspnea, no cough GI - no pain, no constipation Physical Exam Physical Exam: gen - morbidly obese, NAD mouth - MMM, no thrush neck - trach in place, no secretions heart - heart tones are distant, but s1 s2, no obvious murmur, RRR lungs - CTA b/l abd - soft NT ND BS+ ext - no edema, pulses 2+ b/l musculo - right knee - very tender to palpation b/l joint lines and anteriorly over patella; mild effusion, slightly warm; not hot, not red Results & Data Results & Data ([facility]) Vital Signs (Past 12 Hours) Vital Signs Temp Pulse Resp BP Pulse Ox O2 Del Method FiO2 08/19/22 15:42 74 18 96 Room Air 21 08/19/22 15:21 37 C 69 16 121/70 95 08/19/22 11:31 Room Air, Trach Collar 08/19/22 11:09 76 18 96 Room Air 21 Laboratory Results Laboratory Results - last 24 hr 08/19/22 08/19/22 08/19/22 08:13 12:12 17:19 POC Glucose 151 H 178 H 128 H 08/19/22 20:39 POC Glucose 147 H PG Care Time/CCT Total # of Minutes Spent Total Time Spent with Patient: Total time spent is greater than 50% in coordination of care (as documented) at patient's floor/unit and/or counseling patient: Coding Level of Care Code 35052 Subseq Hosp Care Lvl 2 Diagnoses Weakness R53.1 Fracture of distal end of right femur S72.401A CKD (chronic kidney disease) stage 4, GFR 15-29 ml/min N18.4 Morbid obesity E66.01 Type 2 diabetes mellitus E11.9 Chronic respiratory failure J96.10 Respiratory failure complication: unspecified whether with hypoxia or hypercapnia HTN (hypertension) I10 Hypoventilation associated with obesity E66.2 Chronic diastolic congestive heart failure I50.32 Wound, breast S21.009A Hypothyroidism (acquired) E03.9 GERD (gastroesophageal reflux disease) K21.9 Dyslipidemia E78.5 Coronary artery disease I25.10 (1) Chronic respiratory failure Respiratory failure complication: unspecified whether with hypoxia or hypercapnia Qualified Code(s): J96.10 - Chronic respiratory failure, unspecified whether with hypoxia or hypercapnia
[2022-08-20] MEDS: LEVOTHYROXINE SODIUM 75 MCG TABLET PO SCH (06:06)
[2022-08-20] MEDS: oxyCODONE HCL IR 5 MG TAB (IMMEDIATE RELEASE) PO PRN ×2 (06:06→14:51)
[2022-08-20] MEDS: Albuterol HFA 8 GM Inhaler (Combivent Respimat P&T Subs) INH SCH ×4 (07:29→19:08)
[2022-08-20] MEDS: Ipratropium HFA Inhaler (Combivent Respimat P&T Subs) INH SCH ×4 (07:29→19:08)
[2022-08-20] MEDS: ISOSORBIDE MONO EXTENDED REL 30 MG TABCR PO SCH (08:39)
[2022-08-20] MEDS: POTASSIUM CHLORIDE CRTAB 20 MEQ TABCR PO SCH ×2 (08:39→20:58)
[2022-08-20] MEDS: PANTOprazole 40 MG TAB PO SCH ×2 (08:39→20:57)
[2022-08-20] MEDS: METOPROLOL TARTRATE 25 MG TAB PO SCH ×2 (08:40→20:57)
[2022-08-20] MEDS: DOCUSATE SODIUM 100 MG CAP PO SCH ×2 (08:40→21:00)
[2022-08-20] MEDS: ADVANCED PROBIOTIC 1250 MG CAPSULE PO SCH (08:41)
[2022-08-20] MEDS: FOLIC ACID 1 MG TAB PO SCH (08:41)
[2022-08-20] MEDS: TOPIRAMATE 100 MG TAB PO SCH ×2 (08:41→20:58)
[2022-08-20] MEDS: MULTIVITAMIN TAB PO SCH (08:42)
[2022-08-20] MEDS: buPROPion SR 100 MG TABCR PO SCH ×2 (08:42→20:56)
[2022-08-20] MEDS: ASPIRIN 81 MG ECTAB PO SCH (08:42)
[2022-08-20] MEDS: SPIRONOLACTONE 25 MG TAB PO SCH (08:42)
[2022-08-20] MEDS: TORSEMIDE 10 MG TAB PO SCH ×2 (08:43→14:52)
[2022-08-20] MEDS: DICLOFENAC SOD 1% GEL 100 GM TUBE EXT SCH ×4 (08:43→20:56)
[2022-08-20] MEDS: INSULIN ASPART PER UNIT SC SCH ×4 (09:02→21:07)
[2022-08-20] MEDS: LANTUS PER UNIT CHARGE SQ SCH ×2 (09:02→21:07)
--- NOTE | 2022-08-20 09:02 | Pharmacy Report ---
Pharmacy Glycemic Short Note 2 - Date of Service August 20, 2022 - Glycemic Short BSG Results (Last 24 hours): 08/19/22 08/19/22 08/19/22 12:12 17:19 20:39 POC Glucose 178 H 128 H 147 H OUTPATIENT ANTIDIABETIC REGIMEN: * Jardiance 25mg PO daily * Patient on insulin pump in the past (Basal rate 6 units/hr, bolus with 50 units TID meals -- approx 200 units per day) * HbA1c = 8.9% (07/25/22) ASSESSMENT: 08/20: * Received 252 units of insulin yesterday (125 units basal + 127 units bolus). * BSGs well controlled: [phone] mg/dL. * Fasting BSG today was 127 mg/dL - well controlled. * No changes necessary. 08/19: * Patient's BSGs yesterday were [phone] mg/dL. Fasting today is 151 mg/dL. * Since fasting is still slightly above goal will increase basal by 10% to 65 units BID. * Continue Novolog as BSGs reasonable. Could consider tighten CR slightly to 1.25 if BSGs continue to trend upwards throughout the day. PLAN FOR INPATIENT GLYCEMIC CONTROL: * Hold outpatient oral diabetes medications * Basal insulin * Lantus 65 units SC BID * Bolus insulin * NovoLog per scale ACHS or Q6hrs while NPO * Goal Range: Low 110 mg/dL - High 140 mg/dL * Correction Factor: 5 mg/dL/unit * Nutritional / Prandial insulin per carb ratio of 1 unit per 1.5 grams CHO consumed
[2022-08-20] MEDS: ACETAMINOPHEN 500 MG TAB PO SCH ×3 (11:48→20:55)
--- NOTE | 2022-08-20 13:59 | XRay Report ---
XR knee RT 1 or 2V routine CLINICAL HISTORY: pain, known distal femur Fx, interval change COMPARISON: CT of the right knee March 25, 2022. Right knee radiographs August 01, 2022. FINDINGS: A healed proximal right fibular fracture is noted. Note is again made of a comminuted disp laced distal femoral metadiaphyseal fracture which is similar in appearance to [facility]. Fracture is displaced 1.9 cm. Extensive callus formation is noted. No significant bony b ridging of the large fragments is noted. Apparent depression of the lateral tibial plateau is probabl y artifactual. Suspected small joint effusion is present. Patellofemoral compartment osteophytosis is present. IMPRESSION: 1. No significant change in appearance of a comminuted displaced and angulated fracture of the distal femoral metadiaphysis since radiographs of August 01, 2022. Bony remodeling with callus formation without significant bony bridging of the large fragments. The findings suggest delayed healing. 2. Apparent depression of the lateral tibial plateau. This is probably artifactual. ACT 112: Negative or not required by law. Electronically signed by: Toni Ohara M.D. 08/20/2022 1:57 PM
[2022-08-20] MEDS: ATORVASTATIN 40 MG TAB PO SCH (20:55)
[2022-08-20] MEDS: ENOXAPARIN INJ 40 MG/0.4 ML SYR SQ SCH (20:56)
[2022-08-20] MEDS: MELATONIN 3 MG TAB PO SCH (20:57)
[2022-08-20] MEDS: MONTELUKAST SODIUM 10 MG TABLET PO SCH (20:57)
[2022-08-20] MEDS: ALUMINUM/MAGNESIUM SUSP 30 ML UDC PO PRN (21:30)
--- NOTE | 2022-08-20 23:08 | Hospitalist Progress Note ---
Date of Service August 20, 2022 Assessment & Plan (1) Weakness: Plan: Prior to this admission patient had 4-month long stay at [facility] in [place] after sustaining a RIGHT femur fracture. She was there for prolonged stay due to extreme difficulty finding rehab placement. She was discharged to a nursing facility in [place] for a short time (~2 weeks) and then was discharged from there to home. Upon arrival home she could not ambulate/transfer into the house; collapsed to the ground; EMS advised her going to [facility]. Admitted here on 07/24/22. Weakness is 2nd to severe deconditioning due to prolonged immobilization/institutionalization. TSH 11/2021 wnl. TSH mildly high thus increased synthroid as below. B12 level wnl. 25-OH vit D level wnl. Cont PT/OT. (2) Fracture of distal end of right femur: Plan: RIGHT. 2021. s/p admission to [facility] for such. treated nonoperatively there. Seen by Dr. Su, indicates that femur fx is not healed and will likely not heal further * Cont NWB status to RLE * Transfer bed to wheelchair with assistance of a walker * Needs SNF w/ rehab in order to get her to safely transfer Cont oxycodone q8h prn Cont voltaren gel 4gm QID to R knee scheduled x-rays R knee today unchanged from prior 25-OH vit D level wnl this admission. (3) CKD (chronic kidney disease) stage 4, GFR 15-29 ml/min: Plan: Cr stable this admission (4) Morbid obesity: Plan: BMI 56 (5) Type 2 diabetes mellitus: Plan: HbA1c 8.9% pharmacy glycemic team managing her DM; appreciate their assistance Is on large doses of insulin here Had an insulin pump prior to admission Empagliflozin held Control remains satisfactory at this time (6) Chronic respiratory failure: Plan: Stable. 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 Cont to hold ADRIANNA Continue Imdur at lower dose of 30mg daily Cont metoprolol Cont aldactone and torsemide BMP/mag wnl this week (8) Hypoventilation associated with obesity: Plan: Tracheostomy in place Follows with [facility] for her chronic trach No issues at this time (9) Chronic diastolic congestive heart failure: Plan: Compensated Cont diuretics & BB (10) Wound, breast: Plan: right seen by Wound Care nurse continue dressing changes as per wound care team (11) Hypothyroidism (acquired): Plan: TSH was normal at 2.09 in 11/2021 TSH 08/18/22 mildly high Continue home levothyroxine but increased dose to 225mcg from 200mcg once daily repeat TSH 6 weeks (12) GERD (gastroesophageal reflux disease): Plan: Continue Protonix 40 Mg p.o. twice daily (13) Dyslipidemia: Plan: Continue statin (14) Coronary artery disease: Plan: As above Cont asa, statin, BB, imdur Plan DVT prophylaxis with Lovenox. Disposition-case management on consult to assist in dc planning. She is medically stable for discharge. Multiple referrals sent out and are pending. Dispo remains uncertain as she has multiple factors complicating facility's ability to care for patient given her need for bariatric bed + metal trach. daughter updated by phone 08/18/22 Admission and Anticipated Discharge Date Admission Date: July 25, 2022 Subjective during the visit pt complained that something "wasn't right" with her trach I noted that the metal trach was protruding from the tracheal os by about 2cm I simply pushed the metal trach back into place with gentle pressure she is not aware of inadvertently pulling on the trach dressing or ties she has had some forceful coughing this evening, however denies any dyspnea denies any significant secretions from trach after the gentle manipulation above she said everything was "back to normal" following the above I notified respiratory and asked them to inspect everything to ensure proper placement, ties, etc no other issues right knee pain is about the same Review of Systems Review of Systems: cv - no cp pulm - no dyspnea GI - no pain worked with PT again today Physical Exam Physical Exam: gen - morbidly obese mouth - MMM, no thrush neck - trach inspection as noted in history section; no secretions; good air exhalation from trach; ties in place heart - heart tones are distant, but s1 s2, no obvious murmur, RRR lungs - CTA b/l abd - soft NT ND BS+ ext - no edema, pulses 2+ b/l musculo - right knee - mild effusion, slightly warm; not hot, not red; no change in overall appearance Results & Data Results & Data ([facility]) Vital Signs (Past 12 Hours) Vital Signs Temp Pulse Resp BP Pulse Ox O2 Del Method O2 Flow Rate 08/20/22 22:11 37.0 C 88 20 111/68 97 Trach Collar 7 08/20/22 19:08 76 20 94 Room Air 08/20/22 15:23 36.7 C 78 20 107/64 92 Room Air 08/20/22 15:05 71 20 92 Room Air Laboratory Results Laboratory Results - last 24 hr 08/20/22 08/20/22 08/20/22 08:19 12:16 16:59 POC Glucose 127 H 168 H 159 H 08/20/22 20:22 POC Glucose 144 H PG Care Time/CCT Total # of Minutes Spent Total Time Spent with Patient: Total time spent is greater than 50% in coordination of care (as documented) at patient's floor/unit and/or counseling patient: Coding Level of Care Code 56312 Subseq Hosp Care Lvl 1 Diagnoses Weakness R53.1 Fracture of distal end of right femur S72.401A CKD (chronic kidney disease) stage 4, GFR 15-29 ml/min N18.4 Morbid obesity E66.01 Type 2 diabetes mellitus E11.9 Chronic respiratory failure J96.10 Respiratory failure complication: unspecified whether with hypoxia or hypercapnia HTN (hypertension) I10 Hypoventilation associated with obesity E66.2 Chronic diastolic congestive heart failure I50.32 Wound, breast S21.009A Hypothyroidism (acquired) E03.9 GERD (gastroesophageal reflux disease) K21.9 Dyslipidemia E78.5 Coronary artery disease I25.10 (1) Chronic respiratory failure Respiratory failure complication: unspecified whether with hypoxia or hypercapnia Qualified Code(s): J96.10 - Chronic respiratory failure, unspecified whether with hypoxia or hypercapnia
[2022-08-21] MEDS: LEVOTHYROXINE SODIUM 75 MCG TABLET PO SCH (05:53)
[2022-08-21] MEDS: Ipratropium HFA Inhaler (Combivent Respimat P&T Subs) INH SCH ×4 (07:27→20:18)
[2022-08-21] MEDS: Albuterol HFA 8 GM Inhaler (Combivent Respimat P&T Subs) INH SCH ×4 (07:27→20:18)
[2022-08-21] MEDS: TORSEMIDE 10 MG TAB PO SCH ×2 (08:32→14:39)
[2022-08-21] MEDS: DOCUSATE SODIUM 100 MG CAP PO SCH ×2 (08:32→20:51)
[2022-08-21] MEDS: PANTOprazole 40 MG TAB PO SCH ×2 (08:32→20:52)
[2022-08-21] MEDS: POTASSIUM CHLORIDE CRTAB 20 MEQ TABCR PO SCH ×2 (08:32→20:51)
[2022-08-21] MEDS: FOLIC ACID 1 MG TAB PO SCH (08:33)
[2022-08-21] MEDS: ADVANCED PROBIOTIC 1250 MG CAPSULE PO SCH (08:33)
[2022-08-21] MEDS: SPIRONOLACTONE 25 MG TAB PO SCH (08:33)
[2022-08-21] MEDS: MULTIVITAMIN TAB PO SCH (08:33)
[2022-08-21] MEDS: ACETAMINOPHEN 500 MG TAB PO SCH ×3 (08:33→20:50)
[2022-08-21] MEDS: buPROPion SR 100 MG TABCR PO SCH ×2 (08:34→20:49)
[2022-08-21] MEDS: ISOSORBIDE MONO EXTENDED REL 30 MG TABCR PO SCH (08:34)
[2022-08-21] MEDS: ASPIRIN 81 MG ECTAB PO SCH (08:34)
[2022-08-21] MEDS: TOPIRAMATE 100 MG TAB PO SCH ×2 (08:34→20:52)
[2022-08-21] MEDS: METOPROLOL TARTRATE 25 MG TAB PO SCH ×2 (08:34→20:55)
[2022-08-21] MEDS: DICLOFENAC SOD 1% GEL 100 GM TUBE EXT SCH ×4 (08:35→20:50)
[2022-08-21] MEDS: INSULIN ASPART PER UNIT SC SCH ×4 (08:44→20:48)
[2022-08-21] MEDS: LANTUS PER UNIT CHARGE SQ SCH ×2 (08:45→20:48)
[2022-08-21] MEDS: oxyCODONE HCL IR 5 MG TAB (IMMEDIATE RELEASE) PO PRN (14:41)
[2022-08-21] MEDS: ATORVASTATIN 40 MG TAB PO SCH (20:50)
[2022-08-21] MEDS: ENOXAPARIN INJ 40 MG/0.4 ML SYR SQ SCH (20:50)
[2022-08-21] MEDS: MELATONIN 3 MG TAB PO SCH (20:51)
[2022-08-21] MEDS: MONTELUKAST SODIUM 10 MG TABLET PO SCH (20:53)
[2022-08-21] MEDS: ALUMINUM/MAGNESIUM SUSP 30 ML UDC PO PRN (21:09)
--- NOTE | 2022-08-21 21:56 | Hospitalist Progress Note ---
Date of Service August 21, 2022 Assessment & Plan (1) Weakness: Plan: Prior to this admission patient had 4-month long stay at [facility] in [place] after sustaining a RIGHT femur fracture. She was there for prolonged stay due to extreme difficulty finding rehab placement. She was discharged to a nursing facility in [place] for a short time (~2 weeks) and then was discharged from there to home. Upon arrival home she could not ambulate/transfer into the house; collapsed to the ground; EMS advised her going to [facility]. Admitted here on 07/24/22. Weakness is 2nd to severe deconditioning due to prolonged immobilization/institutionalization. TSH 11/2021 wnl. TSH mildly high thus increased synthroid as below. B12 level wnl. 25-OH vit D level wnl. Cont PT/OT. (2) Fracture of distal end of right femur: Plan: RIGHT. 2021. s/p admission to [facility] for such. treated nonoperatively there. Seen by Dr. Su, indicates that femur fx is not healed and will likely not heal further * Cont NWB status to RLE * Transfer bed to wheelchair with assistance of a walker * Needs SNF w/ rehab in order to get her to safely transfer Cont oxycodone q8h prn Cont voltaren gel 4gm QID to R knee scheduled x-rays R knee 08/20/22 unchanged from prior films. 25-OH vit D level wnl this admission. pain controlled today. (3) CKD (chronic kidney disease) stage 4, GFR 15-29 ml/min: Plan: Cr stable throughout this admission Cr baseline 1.4 to about 1.8 (4) Morbid obesity: Plan: BMI 56 (5) Type 2 diabetes mellitus: Plan: HbA1c 8.9% pharmacy glycemic team managing her DM Control remains excellent at this time Had an insulin pump prior to admission - this is on hold Empagliflozin held current regimen - lantus BID + novolog SSI (6) Chronic respiratory failure: Plan: Stable. 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 Cont to hold ADRIANNA Continue Imdur at lower dose of 30mg daily Cont metoprolol Cont aldactone and torsemide BMP/mag wnl this past week (8) Hypoventilation associated with obesity: Plan: Tracheostomy in place Follows with [facility] for her chronic trach (9) Chronic diastolic congestive heart failure: Plan: Compensated Cont diuretics Cont BB (10) Wound, breast: Plan: right seen by Wound Care nurse continue dressing changes as per wound care team (11) Hypothyroidism (acquired): Plan: TSH was normal at 2.09 in 11/2021 TSH 08/18/22 mildly high Continue home levothyroxine but increased dose to 225mcg from 200mcg once daily repeat TSH 6 weeks (12) GERD (gastroesophageal reflux disease): Plan: Continue Protonix 40mg BID (13) Dyslipidemia: Plan: Continue statin (14) Coronary artery disease: Plan: As above NO recent ischemic symptoms Cont asa, statin, BB, imdur Plan DVT prophylaxis -- Lovenox. Disposition-case management on consult to assist in dc planning. She is medically stable for discharge. Multiple referrals sent out and are pending. Dispo remains uncertain as she has multiple factors complicating facility's ability to care for patient given her need for bariatric bed + metal trach. daughter updated by phone 08/18/22 Admission and Anticipated Discharge Date Admission Date: July 25, 2022 Subjective no issues overnight or today feels good eating well right knee pain controlled with oxycodone had another bowel movement no further issues with trach Review of Systems Review of Systems: gen - no fevers cv - no orthopnea, no cp pulm - no dyspnea Physical Exam Physical Exam: gen - morbidly obese mouth - MMM, no thrush neck - trach in place; no secretions; good air exhalation from trach; ties in place heart - heart tones are distant, but s1 s2, no obvious murmur, RRR lungs - CTA b/l abd - soft NT ND BS+ ext - no edema, pulses 2+ b/l musculo - right knee - mild effusion, slightly warm; no change in overall appearance Results & Data Results & Data ([facility]) Vital Signs (Past 12 Hours) Vital Signs Temp Pulse Resp BP BP Pulse Ox O2 Del Method 08/21/22 21:06 37 C 73 18 110/62 93 Room Air 08/21/22 20:18 74 22 92 Room Air 08/21/22 15:47 36.8 C 68 18 110/71 93 Room Air 08/21/22 15:04 86 18 94 Room Air 08/21/22 11:09 90 18 93 Room Air Laboratory Results bsgs <200 PG Care Time/CCT Total # of Minutes Spent Total Time Spent with Patient: Total time spent is greater than 50% in coordination of care (as documented) at patient's floor/unit and/or counseling patient: Coding Level of Care Code 01785 Subseq Hosp Care Lvl 1 Diagnoses Weakness R53.1 Fracture of distal end of right femur S72.401A CKD (chronic kidney disease) stage 4, GFR 15-29 ml/min N18.4 Morbid obesity E66.01 Type 2 diabetes mellitus E11.9 Chronic respiratory failure J96.10 Respiratory failure complication: unspecified whether with hypoxia or hypercapnia HTN (hypertension) I10 Hypoventilation associated with obesity E66.2 Chronic diastolic congestive heart failure I50.32 Wound, breast S21.009A Hypothyroidism (acquired) E03.9 GERD (gastroesophageal reflux disease) K21.9 Dyslipidemia E78.5 Coronary artery disease I25.10 (1) Chronic respiratory failure Respiratory failure complication: unspecified whether with hypoxia or hypercapnia Qualified Code(s): J96.10 - Chronic respiratory failure, unspecified whether with hypoxia or hypercapnia
[2022-08-22] MEDS: TORSEMIDE 10 MG TAB PO SCH ×2 (06:07→13:29)
[2022-08-22] MEDS: LEVOTHYROXINE SODIUM 75 MCG TABLET PO SCH (06:07)
[2022-08-22] MEDS: Albuterol HFA 8 GM Inhaler (Combivent Respimat P&T Subs) INH SCH ×4 (07:37→19:55)
[2022-08-22] MEDS: Ipratropium HFA Inhaler (Combivent Respimat P&T Subs) INH SCH ×4 (07:37→19:55)
[2022-08-22] MEDS: POTASSIUM CHLORIDE CRTAB 20 MEQ TABCR PO SCH ×2 (08:27→20:22)
[2022-08-22] MEDS: ACETAMINOPHEN 500 MG TAB PO SCH ×3 (08:27→20:27)
[2022-08-22] MEDS: DICLOFENAC SOD 1% GEL 100 GM TUBE EXT SCH ×4 (08:27→20:22)
[2022-08-22] MEDS: ISOSORBIDE MONO EXTENDED REL 30 MG TABCR PO SCH (08:28)
[2022-08-22] MEDS: MULTIVITAMIN TAB PO SCH (08:28)
[2022-08-22] MEDS: PANTOprazole 40 MG TAB PO SCH ×2 (08:28→20:26)
[2022-08-22] MEDS: ASPIRIN 81 MG ECTAB PO SCH (08:28)
[2022-08-22] MEDS: METOPROLOL TARTRATE 25 MG TAB PO SCH ×2 (08:28→20:24)
[2022-08-22] MEDS: ADVANCED PROBIOTIC 1250 MG CAPSULE PO SCH (08:29)
[2022-08-22] MEDS: SPIRONOLACTONE 25 MG TAB PO SCH (08:29)
[2022-08-22] MEDS: TOPIRAMATE 100 MG TAB PO SCH ×2 (08:29→20:27)
[2022-08-22] MEDS: DOCUSATE SODIUM 100 MG CAP PO SCH ×2 (08:29→20:25)
[2022-08-22] MEDS: FOLIC ACID 1 MG TAB PO SCH (08:29)
[2022-08-22] MEDS: buPROPion SR 100 MG TABCR PO SCH ×2 (08:30→20:24)
[2022-08-22] MEDS: INSULIN ASPART PER UNIT SC SCH ×4 (08:36→20:41)
[2022-08-22] MEDS: LANTUS PER UNIT CHARGE SQ SCH ×2 (08:36→20:41)
--- NOTE | 2022-08-22 19:10 | Hospitalist Progress Note ---
Date of Service August 22, 2022 Assessment & Plan (1) Weakness: Plan: Prior to this admission patient had 4-month long stay at [facility] in [place] after sustaining a RIGHT femur fracture. She was there for prolonged stay due to extreme difficulty finding rehab placement. She was discharged to a nursing facility in [place] for a short time (~2 weeks) and then was discharged from there to home. Upon arrival home she could not ambulate/transfer into the house; collapsed to the ground; EMS advised her going to [facility]. Admitted here on 07/24/22. Weakness is 2nd to severe deconditioning due to prolonged immobilization/institutionalization. TSH 11/2021 wnl. TSH mildly high thus increased synthroid as below. B12 level wnl. 25-OH vit D level wnl. Cont PT/OT. Patient desires to go home but this is simply not possible given her right knee/leg issues and severe deconditioning. she would need 24/7 care at home. she would live with daughter but daughter has health problems and patient would need significantly more help. (2) Fracture of distal end of right femur: Plan: RIGHT. 2021. s/p admission to [facility] for such. treated nonoperatively there. Seen by Dr. Su, indicates that femur fx is not healed and will likely not heal further * Cont NWB status to RLE * Transfer bed to wheelchair with assistance of a walker * Needs SNF w/ rehab in order to get her to safely transfer Cont oxycodone q8h prn Cont voltaren gel 4gm QID to R knee scheduled x-rays R knee 08/20/22 unchanged from prior films. 25-OH vit D level wnl this admission. (3) CKD (chronic kidney disease) stage 4, GFR 15-29 ml/min: Plan: Cr stable throughout this admission Cr baseline 1.4 to about 1.8 (4) Morbid obesity: Plan: BMI 56 (5) Type 2 diabetes mellitus: Plan: HbA1c 8.9% pharmacy glycemic team managing her DM Control remains excellent at this time Had an insulin pump prior to admission - this is on hold Empagliflozin held current regimen - lantus BID + novolog SSI (6) Chronic respiratory failure: Plan: Stable. Probably predominantly OHS mediated with metal trach in place since 2007 Continue trach care routinely (7) HTN (hypertension): Plan: Controlled Continue Imdur Cont metoprolol Cont aldactone and torsemide most recent BMP/mag wnl (8) Hypoventilation associated with obesity: Plan: Tracheostomy in place Follows with [facility] for her chronic trach (9) Chronic diastolic congestive heart failure: Plan: Compensated Cont diuretics Cont BB (10) Wound, breast: Plan: right seen by Wound Care nurse continue dressing changes as per wound care team (11) Hypothyroidism (acquired): Plan: TSH was normal at 2.09 in 11/2021 TSH 08/18/22 mildly high Continue home levothyroxine but increased dose to 225mcg from 200mcg once daily repeat TSH 6 weeks (12) GERD (gastroesophageal reflux disease): Plan: Continue Protonix 40mg BID (13) Dyslipidemia: Plan: Continue statin (14) Coronary artery disease: Plan: As above NO recent ischemic symptoms Cont asa, statin, BB, imdur Plan DVT prophylaxis -- Lovenox. Disposition-case management on consult to assist in dc planning. She is medically stable for discharge. Multiple referrals sent out and are pending. Dispo remains uncertain as she has multiple factors complicating a facility's ability to care for patient given her need for bariatric bed + metal trach. daughter updated by phone 08/18/22 and again 08/22/22 Admission and Anticipated Discharge Date Admission Date: July 25, 2022 Subjective patient watching football on TV during the visit no new issues feels ok - mild right knee pain only "why can't I go home?" Review of Systems Review of Systems: cv - no cp, no orthopnea pulm - no dyspnea, no issues with trach overnight GI - no pain, no nausea Physical Exam Physical Exam: gen - morbidly obese, NAD, pleasant mouth - MMM, no thrush neck - trach in place; no secretions; good air exhalation from trach heart - heart tones are distant, but s1 s2, no obvious murmur, RRR lungs - CTA b/l abd - soft NT ND BS+ ext - no edema, pulses 2+ b/l Results & Data Results & Data ([facility]) Vital Signs (Past 12 Hours) Vital Signs Temp Pulse Resp BP Pulse Ox O2 Del Method 08/22/22 15:43 80 20 93 Room Air 08/22/22 14:51 36.8 C 72 20 115/70 92 Room Air 08/22/22 11:37 78 18 94 Room Air 08/22/22 07:40 Room Air 08/22/22 07:37 76 18 94 Room Air Laboratory Results Laboratory Results - last 24 hr 08/21/22 08/22/22 08/22/22 20:33 08:09 12:14 POC Glucose 139 H 176 H 154 H 08/22/22 17:05 POC Glucose 156 H PG Care Time/CCT Total # of Minutes Spent Total Time Spent with Patient: Total time spent is greater than 50% in coordination of care (as documented) at patient's floor/unit and/or counseling patient: Coding Level of Care Code 81953 Subseq Hosp Care Lvl 1 Diagnoses Weakness R53.1 Fracture of distal end of right femur S72.401A CKD (chronic kidney disease) stage 4, GFR 15-29 ml/min N18.4 Morbid obesity E66.01 Type 2 diabetes mellitus E11.9 Chronic respiratory failure J96.10 Respiratory failure complication: unspecified whether with hypoxia or hypercapnia HTN (hypertension) I10 Hypoventilation associated with obesity E66.2 Chronic diastolic congestive heart failure I50.32 Wound, breast S21.009A Hypothyroidism (acquired) E03.9 GERD (gastroesophageal reflux disease) K21.9 Dyslipidemia E78.5 Coronary artery disease I25.10 (1) Chronic respiratory failure Respiratory failure complication: unspecified whether with hypoxia or hypercapnia Qualified Code(s): J96.10 - Chronic respiratory failure, unspecified whether with hypoxia or hypercapnia
[2022-08-22] MEDS: ENOXAPARIN INJ 40 MG/0.4 ML SYR SQ SCH (20:22)
[2022-08-22] MEDS: ATORVASTATIN 40 MG TAB PO SCH (20:23)
[2022-08-22] MEDS: MELATONIN 3 MG TAB PO SCH (20:23)
[2022-08-22] MEDS: MONTELUKAST SODIUM 10 MG TABLET PO SCH (20:28)
[2022-08-23] MEDS: TORSEMIDE 10 MG TAB PO SCH ×2 (06:09→14:41)
[2022-08-23] MEDS: LEVOTHYROXINE SODIUM 75 MCG TABLET PO SCH (06:10)
[2022-08-23] MEDS: Albuterol HFA 8 GM Inhaler (Combivent Respimat P&T Subs) INH SCH ×4 (07:42→19:29)
[2022-08-23] MEDS: Ipratropium HFA Inhaler (Combivent Respimat P&T Subs) INH SCH ×4 (07:42→19:29)
[2022-08-23] MEDS: DICLOFENAC SOD 1% GEL 100 GM TUBE EXT SCH ×4 (08:11→21:19)
[2022-08-23] MEDS: TOPIRAMATE 100 MG TAB PO SCH ×2 (08:12→22:56)
[2022-08-23] MEDS: PANTOprazole 40 MG TAB PO SCH ×2 (08:12→21:21)
[2022-08-23] MEDS: ASPIRIN 81 MG ECTAB PO SCH (08:12)
[2022-08-23] MEDS: SPIRONOLACTONE 25 MG TAB PO SCH (08:12)
[2022-08-23] MEDS: ADVANCED PROBIOTIC 1250 MG CAPSULE PO SCH (08:13)
[2022-08-23] MEDS: MULTIVITAMIN TAB PO SCH (08:13)
[2022-08-23] MEDS: METOPROLOL TARTRATE 25 MG TAB PO SCH ×2 (08:13→22:59)
[2022-08-23] MEDS: DOCUSATE SODIUM 100 MG CAP PO SCH ×2 (08:13→22:55)
[2022-08-23] MEDS: ISOSORBIDE MONO EXTENDED REL 30 MG TABCR PO SCH (08:13)
[2022-08-23] MEDS: POTASSIUM CHLORIDE CRTAB 20 MEQ TABCR PO SCH ×2 (08:14→22:57)
[2022-08-23] MEDS: ACETAMINOPHEN 500 MG TAB PO SCH ×3 (08:14→21:19)
[2022-08-23] MEDS: FOLIC ACID 1 MG TAB PO SCH (08:14)
[2022-08-23] MEDS: buPROPion SR 100 MG TABCR PO SCH ×2 (08:15→22:57)
[2022-08-23] MEDS: INSULIN ASPART PER UNIT SC SCH ×4 (08:21→21:16)
[2022-08-23] MEDS: LANTUS PER UNIT CHARGE SQ SCH ×2 (08:22→21:16)
--- NOTE | 2022-08-23 09:31 | Pharmacy Report ---
Pharmacy Glycemic Short Note 2 - Date of Service August 23, 2022 - Glycemic Short BSG Results (Last 24 hours): 08/22/22 08/22/22 08/22/22 12:14 17:05 20:22 POC Glucose 154 H 156 H 204 H 08/23/22 08:07 POC Glucose 129 H OUTPATIENT ANTIDIABETIC REGIMEN: * Jardiance 25mg PO daily * Patient on insulin pump in the past (Basal rate 6 units/hr, bolus with 50 units TID meals -- approx 200 units per day) * HbA1c = 8.9% (07/25/22) ASSESSMENT: 08/23: * Insulin needs continue to be very high (285 units of insulin yesterday) * BSGs reasonably controlled yesterday w/ improved fasting BSG of 129 mg/dL this morning * Had been titrating up basal insulin over past several days, given improvement will continue current regimen * Do not anticipate changes to insulin regimen today 08/20: * Received 252 units of insulin yesterday (125 units basal + 127 units bolus). * BSGs well controlled: [phone] mg/dL. * Fasting BSG today was 127 mg/dL - well controlled. * No changes necessary. 08/19: * Patient's BSGs yesterday were [phone] mg/dL. Fasting today is 151 mg/dL. * Since fasting is still slightly above goal will increase basal by 10% to 65 units BID. * Continue Novolog as BSGs reasonable. Could consider tighten CR slightly to 1.25 if BSGs continue to trend upwards throughout the day. Background: 67 year old female admitted w/ CP and SOB, morbid obesity, only on PO med for DM, but was previously on high dose insulin via pump. PLAN FOR INPATIENT GLYCEMIC CONTROL: * Hold outpatient oral diabetes medications * Basal insulin * Lantus 70 units SC BID * Bolus insulin * NovoLog per scale ACHS or Q6hrs while NPO * Goal Range: Low 110 mg/dL - High 140 mg/dL * Correction Factor: 5 mg/dL/unit * Nutritional / Prandial insulin per carb ratio of 1 unit per 1.5 grams CHO consumed
[2022-08-23] MEDS: oxyCODONE HCL IR 5 MG TAB (IMMEDIATE RELEASE) PO PRN (12:30)
--- NOTE | 2022-08-23 20:03 | Hospitalist Progress Note ---
Date of Service August 23, 2022 Assessment & Plan (1) Weakness: Plan: Prior to this admission patient had 4-month long stay at [facility] in [place] after sustaining a RIGHT femur fracture. She was there for prolonged stay due to extreme difficulty finding rehab placement. She was discharged to a nursing facility in [place] for a short time (~2 weeks) and then was discharged from there to home. Upon arrival home she could not ambulate/transfer into the house; collapsed to the ground; EMS advised her going to [facility]. Admitted here on 07/24/22. Weakness is 2nd to severe deconditioning due to prolonged immobilization/institutionalization. TSH 11/2021 wnl. TSH mildly high thus increased synthroid as below. B12 level wnl. 25-OH vit D level wnl. Cont PT/OT. Patient desires to go home but this is simply not possible given her right knee/leg issues and severe deconditioning. she would need 24/7 care at home and this is not attainable. social work to continue to look for placement. (2) Fracture of distal end of right femur: Plan: RIGHT. 2021. s/p admission to [facility] for such. treated nonoperatively there. Seen by Dr. Su, indicates that femur fx is not healed and will likely not heal further * Cont NWB status to RLE * Transfer bed to wheelchair with assistance of a walker * Needs SNF w/ rehab in order to get her to safely transfer Cont oxycodone q8h prn Cont voltaren gel 4gm QID to R knee scheduled x-rays R knee 08/20/22 unchanged from prior films. 25-OH vit D level wnl this admission. (3) CKD (chronic kidney disease) stage 4, GFR 15-29 ml/min: Plan: Cr stable throughout this admission Cr 1.59 on 08/18/22 Cr baseline 1.4 to about 1.8 would check Cr about 1x/week to ensure stability (4) Morbid obesity: Plan: BMI 56 (5) Type 2 diabetes mellitus: Plan: HbA1c 8.9% pharmacy glycemic team managing her DM Control remains good-excellent at this time Had an insulin pump prior to admission - this is on hold Empagliflozin held current regimen - lantus BID + novolog SSI (6) Chronic respiratory failure: Plan: Stable. Probably predominantly OHS mediated Metal trach in place since 2007 Continue trach care (7) HTN (hypertension): Plan: Controlled Continue Imdur Cont metoprolol Cont aldactone Cont torsemide most recent BMP/mag wnl (08/18/22) - check about 1x/week for stability purposes (8) Hypoventilation associated with obesity: Plan: Tracheostomy in place Follows with [facility] for her chronic trach (9) Chronic diastolic congestive heart failure: Plan: Compensated Cont diuretics Cont BB (10) Wound, breast: Plan: right seen by Wound Care nurse earlier in the stay continue dressing changes as per wound care team (11) Hypothyroidism (acquired): Plan: TSH was normal at 2.09 in 11/2021 TSH 08/18/22 mildly high Continue home levothyroxine but increased dose to 225mcg from 200mcg once daily repeat TSH 6 weeks (12) GERD (gastroesophageal reflux disease): Plan: Continue Protonix 40mg BID (13) Dyslipidemia: Plan: Continue statin (14) Coronary artery disease: Plan: As above NO recent ischemic symptoms Cont asa, statin, BB, imdur Plan DVT prophylaxis -- Lovenox 40mg BID. Disposition-case management on consult to assist in dc planning. She is medically stable for discharge. Multiple referrals sent out and are pending. Dispo remains uncertain as she has multiple factors complicating a facility's ability to care for patient given her need for bariatric bed + metal trach. daughter updated by phone 08/18/22 and again 08/22/22 Admission and Anticipated Discharge Date Admission Date: July 25, 2022 Subjective no new issues had a good day R knee pain at baseline eating well no new updates from social work re: placement Review of Systems Review of Systems: cv - no orthopnea pulm - no dyspnea, no cough, no issues with trach GI - no nausea, emesis or constipation Physical Exam Physical Exam: gen - morbidly obese, NAD, pleasant mouth - MMM, no thrush neck - metal trach in place; no secretions noted heart - heart tones distant, but s1 s2, no obvious murmur, RRR lungs - CTA b/l abd - soft NT ND BS+ ext - no edema, pulses 2+ b/l right knee - mild effusion noted; mild deformity noted - no change from prior exams skin - minimal stasis dermatitis shins b/l psych - a/o x 3 Results & Data Results & Data ([facility]) Vital Signs (Past 12 Hours) Vital Signs Temp Pulse Resp BP Pulse Ox O2 Del Method 08/23/22 16:00 Room Air 08/23/22 15:01 36.9 C 80 20 141/72 H 94 Room Air 08/23/22 14:55 76 20 94 Room Air 08/23/22 11:47 72 20 93 Room Air Laboratory Results Laboratory Results - last 24 hr 08/22/22 08/23/22 08/23/22 20:22 08:07 12:07 POC Glucose 204 H 129 H 162 H 08/23/22 17:12 POC Glucose 245 H PG Care Time/CCT Total # of Minutes Spent Total Time Spent with Patient: Total time spent is greater than 50% in coordination of care (as documented) at patient's floor/unit and/or counseling patient: Coding Level of Care Code 51797 Subseq Hosp Care Lvl 1 Diagnoses Weakness R53.1 Fracture of distal end of right femur S72.401A CKD (chronic kidney disease) stage 4, GFR 15-29 ml/min N18.4 Morbid obesity E66.01 Type 2 diabetes mellitus E11.9 Chronic respiratory failure J96.10 Respiratory failure complication: unspecified whether with hypoxia or hypercapnia HTN (hypertension) I10 Hypoventilation associated with obesity E66.2 Chronic diastolic congestive heart failure I50.32 Wound, breast S21.009A Hypothyroidism (acquired) E03.9 GERD (gastroesophageal reflux disease) K21.9 Dyslipidemia E78.5 Coronary artery disease I25.10 (1) Chronic respiratory failure Respiratory failure complication: unspecified whether with hypoxia or hypercapnia Qualified Code(s): J96.10 - Chronic respiratory failure, unspecified whether with hypoxia or hypercapnia
[2022-08-23] MEDS: ENOXAPARIN INJ 40 MG/0.4 ML SYR SQ SCH (21:19)
[2022-08-23] MEDS: MELATONIN 3 MG TAB PO SCH (21:20)
[2022-08-23] MEDS: ATORVASTATIN 40 MG TAB PO SCH (22:55)
[2022-08-23] MEDS: MONTELUKAST SODIUM 10 MG TABLET PO SCH (22:58)
[2022-08-24] MEDS: LEVOTHYROXINE SODIUM 75 MCG TABLET PO SCH (06:09)
[2022-08-24] MEDS: TORSEMIDE 10 MG TAB PO SCH ×2 (06:09→16:58)
[2022-08-24] MEDS: Albuterol HFA 8 GM Inhaler (Combivent Respimat P&T Subs) INH SCH ×4 (07:43→19:54)
[2022-08-24] MEDS: Ipratropium HFA Inhaler (Combivent Respimat P&T Subs) INH SCH ×4 (07:43→19:54)
[2022-08-24] MEDS: LANTUS PER UNIT CHARGE SQ SCH ×2 (08:39→21:28)
[2022-08-24] MEDS: INSULIN ASPART PER UNIT SC SCH ×4 (08:39→21:27)
[2022-08-24] MEDS: ACETAMINOPHEN 500 MG TAB PO SCH ×3 (08:42→21:33)
[2022-08-24] MEDS: DOCUSATE SODIUM 100 MG CAP PO SCH ×2 (08:44→21:35)
[2022-08-24] MEDS: buPROPion SR 100 MG TABCR PO SCH ×2 (08:44→21:32)
[2022-08-24] MEDS: ENOXAPARIN INJ 40 MG/0.4 ML SYR SQ SCH ×2 (08:45→21:30)
[2022-08-24] MEDS: FOLIC ACID 1 MG TAB PO SCH (08:45)
[2022-08-24] MEDS: METOPROLOL TARTRATE 25 MG TAB PO SCH ×2 (08:46→21:34)
[2022-08-24] MEDS: ISOSORBIDE MONO EXTENDED REL 30 MG TABCR PO SCH (08:46)
[2022-08-24] MEDS: ADVANCED PROBIOTIC 1250 MG CAPSULE PO SCH (08:46)
[2022-08-24] MEDS: POTASSIUM CHLORIDE CRTAB 20 MEQ TABCR PO SCH ×2 (08:48→21:35)
[2022-08-24] MEDS: PANTOprazole 40 MG TAB PO SCH ×2 (08:48→21:34)
[2022-08-24] MEDS: SPIRONOLACTONE 25 MG TAB PO SCH (08:48)
[2022-08-24] MEDS: TOPIRAMATE 100 MG TAB PO SCH ×2 (08:49→21:37)
[2022-08-24] MEDS: DICLOFENAC SOD 1% GEL 100 GM TUBE EXT SCH ×4 (09:14→21:29)
[2022-08-24] MEDS: ASPIRIN 81 MG ECTAB PO SCH (12:53)
[2022-08-24] MEDS: MULTIVITAMIN TAB PO SCH (12:54)
[2022-08-24] MEDS: oxyCODONE HCL IR 5 MG TAB (IMMEDIATE RELEASE) PO PRN (12:54)
--- NOTE | 2022-08-24 14:05 | Hospitalist Progress Note ---
Date of Service August 24, 2022 Assessment & Plan (1) Weakness: Plan: Prior to this admission patient had 4-month long stay at [facility] in [place] after sustaining a RIGHT femur fracture. She was there for prolonged stay due to extreme difficulty finding rehab placement. She was discharged to a nursing facility in [place] for a short time (~2 weeks) and then was discharged from there to home. Upon arrival home she could not ambulate/transfer into the house; collapsed to the ground; EMS advised her going to [facility]. Admitted here on 07/24/22. Weakness is 2nd to severe deconditioning due to prolonged immobilization/institutionalization. TSH 11/2021 wnl. TSH mildly high thus increased synthroid as below. B12 level wnl. 25-OH vit D level wnl. Cont PT/OT. Patient desires to go home but this is simply not possible given her right knee/leg issues and severe deconditioning. she would need 24/7 care at home and this is not attainable. social work to continue to look for placement. (2) Fracture of distal end of right femur: Plan: RIGHT. 2021. s/p admission to [facility] for such. treated nonoperatively there. Seen by Dr. Su, indicates that femur fx is not healed and will likely not heal further * Cont NWB status to RLE * Transfer bed to wheelchair with assistance of a walker * Needs SNF w/ rehab in order to get her to safely transfer Cont oxycodone 10mg po q8h prn, but mostly just takes prior to PT Cont voltaren gel 4gm QID to R knee scheduled x-rays R knee 08/20/22 unchanged from prior films. 25-OH vit D level wnl this admission. (3) CKD (chronic kidney disease) stage 4, GFR 15-29 ml/min: Plan: Cr stable throughout this admission Cr 1.59 on 08/18/22 Cr baseline 1.4 to about 1.8 would check Cr about 1x/week to ensure stability-will check 08/25 (4) Morbid obesity: Plan: BMI 56 needs weight loss (5) Type 2 diabetes mellitus: Plan: HbA1c 8.9% pharmacy glycemic team managing her DM Control remains good-excellent at this time Had an insulin pump prior to admission - this is on hold Empagliflozin held current regimen - lantus BID + novolog SSI (6) Chronic respiratory failure: Plan: Stable. Probably predominantly OHS mediated Metal trach in place since 2007 Continue trach care (7) HTN (hypertension): Plan: Controlled Continue Imdur Cont metoprolol Cont aldactone Cont torsemide most recent BMP/mag wnl (08/18/22) - check about 1x/week for stability purposes (8) Hypoventilation associated with obesity: Plan: Tracheostomy in place [facility] (9) Chronic diastolic congestive heart failure: Plan: Compensated Cont diuretics Cont BB (10) Wound, breast: Plan: right seen by Wound Care nurse earlier in the stay continue dressing changes as per wound care team (11) Hypothyroidism (acquired): Plan: TSH was normal at 2.09 in 11/2021 TSH 08/18/22 mildly high Continue home levothyroxine but increased dose to 225mcg from 200mcg once daily repeat TSH 6 weeks (12) GERD (gastroesophageal reflux disease): Plan: Continue Protonix 40mg BID (13) Dyslipidemia: Plan: Continue statin (14) Coronary artery disease: Plan: As above NO recent ischemic symptoms Cont asa, statin, BB, imdur Plan DVT prophylaxis -- Lovenox 40mg BID. Disposition-case management on consult to assist in dc planning. She is medically stable for discharge. Multiple referrals sent out and are pending. Dispo remains uncertain as she has multiple factors complicating a facility's ability to care for patient given her need for bariatric bed + metal trach. daughter updated by phone 08/18/22 and again 08/22/22 Admission and Anticipated Discharge Date Admission Date: July 25, 2022 Subjective No complaints. Is OOB to chair today and has been frequently since I last saw her a week ago. Is eating and drinking like normal, no nausea or abd pain. Is moving bowels, denies CP, SOB Review of Systems Review of Systems: All systems reviewed & are unremarkable except as noted in HPI & below Physical Exam Constitutional: WD/WN, vitals as above Eyes: + anicteric sclerae Neck: + abnormal visual inspection (metal trach in place) Respiratory: normal respiratory effort, lungs clear to auscultation Cardiovascular: RRR, no murmur, no edema Chest (Breasts): Chest: normal inspection of chest Gastrointestinal (Abdomen): normal bowel sounds, soft, nontender, no hepatosplenomegaly Musculoskeletal: Extremities: extremities normal to inspection; no cyanosis and no clubbing Skin: no rashes, warm and dry + ulcer (Right lateral breast, superficial,scab now formed) Neurologic: moves all extremities and awake; no focal motor deficits Psychiatric: A+Ox3, euthymic affect Lymphatic: no lymphedema Results & Data Results & Data ([facility]) Vital Signs (Past 12 Hours) Vital Signs Temp Pulse Resp BP Pulse Ox O2 Del Method 08/24/22 11:32 69 20 94 Room Air 08/24/22 08:54 Room Air, Trach Collar 08/24/22 07:43 36.5 C 69 20 128/73 95 Trach Collar 08/24/22 07:44 64 20 96 Room Air PG Care Time/CCT Total # of Minutes Spent Total Time Spent with Patient: Total time spent is greater than 50% in coordination of care (as documented) at patient's floor/unit and/or counseling patient: Coding Level of Care Code 69158 Subseq Hosp Care Lvl 1 Diagnoses Weakness R53.1 Fracture of distal end of right femur S72.401A CKD (chronic kidney disease) stage 4, GFR 15-29 ml/min N18.4 Morbid obesity E66.01 Type 2 diabetes mellitus E11.9 Chronic respiratory failure J96.10 Respiratory failure complication: unspecified whether with hypoxia or hypercapnia HTN (hypertension) I10 Hypoventilation associated with obesity E66.2 Chronic diastolic congestive heart failure I50.32 Wound, breast S21.009A Hypothyroidism (acquired) E03.9 GERD (gastroesophageal reflux disease) K21.9 Dyslipidemia E78.5 Coronary artery disease I25.10 (1) Chronic respiratory failure Respiratory failure complication: unspecified whether with hypoxia or hypercapnia Qualified Code(s): J96.10 - Chronic respiratory failure, unspecified whether with hypoxia or hypercapnia
[2022-08-24] MEDS: ATORVASTATIN 40 MG TAB PO SCH (21:32)
[2022-08-24] MEDS: MELATONIN 3 MG TAB PO SCH (21:32)
[2022-08-24] MEDS: MONTELUKAST SODIUM 10 MG TABLET PO SCH (21:33)
[2022-08-25] MEDS: LEVOTHYROXINE SODIUM 75 MCG TABLET PO SCH (06:10)
[2022-08-25] MEDS: TORSEMIDE 10 MG TAB PO SCH ×2 (06:11→15:14)
[2022-08-25 07:05] LABS: Creatinine Clr Calc Pharmacy 52.5 ml/min; Est GFR (African American) 44.1 ml/min; Est GFR (Non-African American) 38.1 ml/min
[2022-08-25] MEDS: Ipratropium HFA Inhaler (Combivent Respimat P&T Subs) INH SCH ×4 (07:12→18:56)
[2022-08-25] MEDS: Albuterol HFA 8 GM Inhaler (Combivent Respimat P&T Subs) INH SCH ×4 (07:12→18:53)
[2022-08-25] MEDS: INSULIN ASPART PER UNIT SC SCH ×4 (08:30→21:52)
[2022-08-25] MEDS: LANTUS PER UNIT CHARGE SQ SCH ×2 (08:30→21:52)
[2022-08-25] MEDS: ASPIRIN 81 MG ECTAB PO SCH (08:32)
[2022-08-25] MEDS: ACETAMINOPHEN 500 MG TAB PO SCH ×3 (08:32→21:57)
[2022-08-25] MEDS: DOCUSATE SODIUM 100 MG CAP PO SCH ×2 (08:33→21:55)
[2022-08-25] MEDS: buPROPion SR 100 MG TABCR PO SCH ×2 (08:33→21:59)
[2022-08-25] MEDS: ADVANCED PROBIOTIC 1250 MG CAPSULE PO SCH (08:34)
[2022-08-25] MEDS: FOLIC ACID 1 MG TAB PO SCH (08:34)
[2022-08-25] MEDS: ISOSORBIDE MONO EXTENDED REL 30 MG TABCR PO SCH (08:34)
[2022-08-25] MEDS: METOPROLOL TARTRATE 25 MG TAB PO SCH ×2 (08:35→21:56)
[2022-08-25] MEDS: MULTIVITAMIN TAB PO SCH (08:36)
[2022-08-25] MEDS: PANTOprazole 40 MG TAB PO SCH ×2 (08:36→21:55)
[2022-08-25] MEDS: POTASSIUM CHLORIDE CRTAB 20 MEQ TABCR PO SCH ×2 (08:37→21:58)
[2022-08-25] MEDS: SPIRONOLACTONE 25 MG TAB PO SCH (08:37)
[2022-08-25] MEDS: TOPIRAMATE 100 MG TAB PO SCH ×2 (08:38→21:59)
[2022-08-25] MEDS: ENOXAPARIN INJ 40 MG/0.4 ML SYR SQ SCH ×2 (08:38→21:54)
[2022-08-25] MEDS: DICLOFENAC SOD 1% GEL 100 GM TUBE EXT SCH ×4 (08:38→21:58)
--- NOTE | 2022-08-25 09:22 | Pharmacy Report ---
Pharmacy Glycemic Short Note 2 - Date of Service August 25, 2022 - Glycemic Short BSG Results (Last 24 hours): 08/24/22 08/24/22 08/24/22 11:36 16:43 20:38 POC Glucose 181 H 253 H 191 H 08/25/22 08:04 POC Glucose 155 H OUTPATIENT ANTIDIABETIC REGIMEN: * Jardiance 25mg PO daily * Patient on insulin pump in the past (Basal rate 6 units/hr, bolus with 50 units TID meals -- approx 200 units per day) * HbA1c = 8.9% (07/25/22) ASSESSMENT: 08/25: * Insulin needs continue to be very high (364 units of insulin yesterday), Lantus increased and CR tightened yesterday * BSGs reasonably controlled yesterday w/ fasting BSG of 155 mg/dL this morning * Continue current regimen, do not anticipate changes to insulin regimen today 08/23: * Insulin needs continue to be very high (285 units of insulin yesterday) * BSGs reasonably controlled yesterday w/ improved fasting BSG of 129 mg/dL this morning * Had been titrating up basal insulin over past several days, given improvement will continue current regimen * Do not anticipate changes to insulin regimen today 08/20: * Received 252 units of insulin yesterday (125 units basal + 127 units bolus). * BSGs well controlled: [phone] mg/dL. * Fasting BSG today was 127 mg/dL - well controlled. * No changes necessary. 08/19: * Patient's BSGs yesterday were [phone] mg/dL. Fasting today is 151 mg/dL. * Since fasting is still slightly above goal will increase basal by 10% to 65 units BID. * Continue Novolog as BSGs reasonable. Could consider tighten CR slightly to 1.25 if BSGs continue to trend upwards throughout the day. Background: 67 year old female admitted w/ CP and SOB, morbid obesity, only on PO med for DM, but was previously on high dose insulin via pump. PLAN FOR INPATIENT GLYCEMIC CONTROL: * Hold outpatient oral diabetes medications * Basal insulin * Lantus 75 units SC BID * Bolus insulin * NovoLog per scale ACHS or Q6hrs while NPO * Goal Range: Low 110 mg/dL - High 140 mg/dL * Correction Factor: 5 mg/dL/unit * Nutritional / Prandial insulin per carb ratio of 1 unit per 1 grams CHO consumed
[2022-08-25] MEDS: oxyCODONE HCL IR 5 MG TAB (IMMEDIATE RELEASE) PO PRN ×2 (12:52→22:10)
--- NOTE | 2022-08-25 14:46 | Hospitalist Progress Note ---
Date of Service August 25, 2022 Assessment & Plan (1) Weakness: Plan: Prior to this admission patient had 4-month long stay at [facility] in [place] after sustaining a RIGHT femur fracture. She was there for prolonged stay due to extreme difficulty finding rehab placement. She was discharged to a nursing facility in [place] for a short time (~2 weeks) and then was discharged from there to home. Upon arrival home she could not ambulate/transfer into the house; collapsed to the ground; EMS advised her going to [facility]. Admitted here on 07/24/22. Weakness is 2nd to severe deconditioning due to prolonged immobilization/institutionalization. TSH 11/2021 wnl. TSH mildly high thus increased synthroid as below. B12 level wnl. 25-OH vit D level wnl. Cont PT/OT. Patient desires to go home but this is simply not possible given her right knee/leg issues and severe deconditioning. she would need 24/7 care at home and this is not attainable. social work to continue to look for placement. (2) Fracture of distal end of right femur: Plan: RIGHT. 2021. s/p admission to [facility] for such. treated nonoperatively there. Seen by Dr. Su, indicates that femur fx is not healed and will likely not heal further * Cont NWB status to RLE * Transfer bed to wheelchair or chair and bedside commode with assistance of a walker * Needs SNF w/ rehab in order to get her to safely transfer Cont oxycodone 10mg po q8h prn, but mostly just takes prior to PT Cont voltaren gel 4gm QID to R knee scheduled x-rays R knee 08/20/22 unchanged from prior films. 25-OH vit D level wnl this admission. (3) CKD (chronic kidney disease) stage 4, GFR 15-29 ml/min: Plan: Cr stable throughout this admission Cr 1.59 on 08/18/22 and 1.4 on 08/25 Cr baseline 1.4 to about 1.8 would check Cr about 1x/week to ensure stability (4) Morbid obesity: Plan: BMI 56 needs weight loss (5) Type 2 diabetes mellitus: Plan: HbA1c 8.9% pharmacy glycemic team managing her DM Control remains good-excellent at this time Had an insulin pump prior to admission - this is on hold Empagliflozin held current regimen - lantus BID + novolog SSI (6) Chronic respiratory failure: Plan: Stable. Probably predominantly OHS mediated Metal trach in place since 2007 Continue trach care (7) HTN (hypertension): Plan: Controlled Continue Imdur Cont metoprolol Cont aldactone Cont torsemide most recent BMP/mag wnl (08/18/22) - check about 1x/week for stability purposes (8) Hypoventilation associated with obesity: Plan: Tracheostomy in place Follows with [facility] for her chronic trach (9) Chronic diastolic congestive heart failure: Plan: Compensated Cont diuretics Cont BB (10) Wound, breast: Plan: right seen by Wound Care nurse earlier in the stay continue dressing changes as per wound care team (11) Hypothyroidism (acquired): Plan: TSH was normal at 2.09 in 11/2021 TSH 08/18/22 mildly high Continue home levothyroxine but increased dose to 225mcg from 200mcg once daily repeat TSH 6 weeks around Sep 04 (12) GERD (gastroesophageal reflux disease): Plan: Continue Protonix 40mg BID (13) Dyslipidemia: Plan: Continue statin (14) Coronary artery disease: Plan: As above NO recent ischemic symptoms Cont asa, statin, BB, imdur Plan DVT prophylaxis -- Lovenox 40mg BID. Disposition-case management on consult to assist in dc planning. She is medically stable for discharge. Multiple referrals sent out and are pending. Dispo remains uncertain as she has multiple factors complicating a facility's ability to care for patient given her need for bariatric bed + metal trach. daughter updated by phone 08/18/22 and again 08/22/22 Admission and Anticipated Discharge Date Admission Date: July 25, 2022 Subjective Pt was OOB to the bedside commode and then walked a couple steps to the chair today. Sh eis very happy about this. It did take the assistance of two people. She is upset that the [employer] refused to get her a bedpan and wanted her to get out of bed to go to the bedside commode. Otherwise no complaints. Review of Systems Review of Systems: All systems reviewed & are unremarkable except as noted in HPI & below Physical Exam Constitutional: WD/WN, vitals as above Eyes: + anicteric sclerae Neck: + abnormal visual inspection (metal trach in place) Respiratory: normal respiratory effort, lungs clear to auscultation Cardiovascular: RRR, no murmur, no edema Chest (Breasts): Chest: normal inspection of chest Gastrointestinal (Abdomen): normal bowel sounds, soft, nontender, no hepatosplenomegaly Musculoskeletal: Extremities: extremities normal to inspection; no cyanosis and no clubbing Skin: no rashes, warm and dry Neurologic: moves all extremities and awake; no focal motor deficits Psychiatric: A+Ox3, euthymic affect Lymphatic: no lymphedema Results & Data Results & Data ([facility]) Vital Signs (Past 12 Hours) Vital Signs Temp Pulse Resp BP Pulse Ox O2 Del Method 08/25/22 10:55 74 18 94 Room Air 08/25/22 10:31 Room Air, Trach Collar 08/25/22 07:14 67 22 95 Room Air 08/25/22 07:01 36.7 C 67 24 123/73 93 Laboratory Results 08/25/22 08/25/22 08/25/22 Range/Units 12:08 08:04 06:11 Creatinine 1.43 H (0.6-1.2) mg/dl Est Cr Clr Drug Dosing 52.5 ml/min Est GFR ( Amer) 44.1 ml/min Est GFR (Non-Af Amer) 38.1 ml/min POC Glucose 172 H 155 H (70-99) mg/dl 08/24/22 08/24/22 Range/Units 20:38 16:43 Creatinine (0.6-1.2) mg/dl Est Cr Clr Drug Dosing ml/min Est GFR ( Amer) ml/min Est GFR (Non-Af Amer) ml/min POC Glucose 191 H 253 H (70-99) mg/dl PG Care Time/CCT Total # of Minutes Spent Total Time Spent with Patient: Total time spent is greater than 50% in coordination of care (as documented) at patient's floor/unit and/or counseling patient: Coding Level of Care Code 31849 Subseq Hosp Care Lvl 1 Diagnoses Weakness R53.1 Fracture of distal end of right femur S72.401A CKD (chronic kidney disease) stage 4, GFR 15-29 ml/min N18.4 Morbid obesity E66.01 Type 2 diabetes mellitus E11.9 Chronic respiratory failure J96.10 Respiratory failure complication: unspecified whether with hypoxia or hypercapnia HTN (hypertension) I10 Hypoventilation associated with obesity E66.2 Chronic diastolic congestive heart failure I50.32 Wound, breast S21.009A Hypothyroidism (acquired) E03.9 GERD (gastroesophageal reflux disease) K21.9 Dyslipidemia E78.5 Coronary artery disease I25.10 (1) Chronic respiratory failure Respiratory failure complication: unspecified whether with hypoxia or hypercapnia Qualified Code(s): J96.10 - Chronic respiratory failure, unspecified whether with hypoxia or hypercapnia
[2022-08-25] MEDS: MONTELUKAST SODIUM 10 MG TABLET PO SCH (21:55)
[2022-08-25] MEDS: ATORVASTATIN 40 MG TAB PO SCH (21:56)
[2022-08-25] MEDS: MELATONIN 3 MG TAB PO SCH (21:57)
[2022-08-25] MEDS: ALUMINUM/MAGNESIUM SUSP 30 ML UDC PO PRN (22:11)
[2022-08-26] MEDS: TORSEMIDE 10 MG TAB PO SCH ×2 (06:05→14:23)
[2022-08-26] MEDS: LEVOTHYROXINE SODIUM 75 MCG TABLET PO SCH (06:06)
[2022-08-26] MEDS: Ipratropium HFA Inhaler (Combivent Respimat P&T Subs) INH SCH ×4 (07:44→19:12)
[2022-08-26] MEDS: Albuterol HFA 8 GM Inhaler (Combivent Respimat P&T Subs) INH SCH ×4 (07:44→19:12)
[2022-08-26] MEDS: INSULIN ASPART PER UNIT SC SCH ×4 (08:43→20:46)
[2022-08-26] MEDS: LANTUS PER UNIT CHARGE SQ SCH ×2 (08:44→20:46)
[2022-08-26] MEDS: ACETAMINOPHEN 500 MG TAB PO SCH ×3 (08:46→20:34)
[2022-08-26] MEDS: ASPIRIN 81 MG ECTAB PO SCH (08:47)
[2022-08-26] MEDS: DOCUSATE SODIUM 100 MG CAP PO SCH ×2 (08:48→20:31)
[2022-08-26] MEDS: ENOXAPARIN INJ 40 MG/0.4 ML SYR SQ SCH ×2 (08:48→20:34)
[2022-08-26] MEDS: DICLOFENAC SOD 1% GEL 100 GM TUBE EXT SCH ×4 (08:48→20:30)
[2022-08-26] MEDS: buPROPion SR 100 MG TABCR PO SCH ×2 (08:48→20:32)
[2022-08-26] MEDS: FOLIC ACID 1 MG TAB PO SCH (08:49)
[2022-08-26] MEDS: ISOSORBIDE MONO EXTENDED REL 30 MG TABCR PO SCH (08:50)
[2022-08-26] MEDS: PANTOprazole 40 MG TAB PO SCH ×2 (08:50→20:34)
[2022-08-26] MEDS: POTASSIUM CHLORIDE CRTAB 20 MEQ TABCR PO SCH ×2 (08:51→20:34)
[2022-08-26] MEDS: SPIRONOLACTONE 25 MG TAB PO SCH (08:51)
[2022-08-26] MEDS: MULTIVITAMIN TAB PO SCH (08:52)
[2022-08-26] MEDS: TOPIRAMATE 100 MG TAB PO SCH ×2 (08:52→20:31)
[2022-08-26] MEDS: ADVANCED PROBIOTIC 1250 MG CAPSULE PO SCH (08:52)
[2022-08-26] MEDS: METOPROLOL TARTRATE 25 MG TAB PO SCH ×2 (08:53→20:33)
--- NOTE | 2022-08-26 11:53 | Hospitalist Progress Note ---
Date of Service August 26, 2022 Assessment & Plan (1) Weakness: Plan: Prior to this admission patient had 4-month long stay at [facility] in [place] after sustaining a RIGHT femur fracture. She was there for prolonged stay due to extreme difficulty finding rehab placement. She was discharged to a nursing facility in [place] for a short time (~2 weeks) and then was discharged from there to home. Upon arrival home she could not ambulate/transfer into the house; collapsed to the ground; EMS advised her going to [facility]. Admitted here on 07/24/22. Weakness is 2nd to severe deconditioning due to prolonged immobilization/institutionalization. TSH 11/2021 wnl. TSH mildly high thus increased synthroid as below. B12 level wnl. 25-OH vit D level wnl. Cont PT/OT. Patient desires to go home but this is simply not possible given her right knee/leg issues and severe deconditioning. she would need 24/7 care at home and this is not attainable. social work to continue to look for placement. (2) Fracture of distal end of right femur: Plan: RIGHT. 2021. s/p admission to [facility] for such. treated nonoperatively there. Seen by Dr. Su, indicates that femur fx is not healed and will likely not heal further * Cont NWB status to RLE * Transfer bed to wheelchair or chair and bedside commode with assistance of a walker * Needs SNF w/ rehab in order to get her to safely transfer Cont oxycodone 10mg po q8h prn, but mostly just takes prior to PT Cont voltaren gel 4gm QID to R knee scheduled x-rays R knee 08/20/22 unchanged from prior films. 25-OH vit D level wnl this admission. (3) CKD (chronic kidney disease) stage 4, GFR 15-29 ml/min: Plan: Cr stable throughout this admission Cr 1.59 on 08/18/22 and 1.4 on 08/25 Cr baseline 1.4 to about 1.8 would check Cr about 1x/week to ensure stability (4) Morbid obesity: Plan: BMI 56 needs weight loss (5) Type 2 diabetes mellitus: Plan: HbA1c 8.9% pharmacy glycemic team managing her DM Control remains good-excellent at this time Had an insulin pump prior to admission - this is on hold Empagliflozin held current regimen - lantus BID + novolog SSI (6) Chronic respiratory failure: Plan: Stable. Probably predominantly OHS mediated Metal trach in place since 2007 Continue trach care (7) HTN (hypertension): Plan: Controlled Continue Imdur Cont metoprolol Cont aldactone Cont torsemide most recent BMP/mag wnl (08/18/22) - check about 1x/week for stability purposes (8) Hypoventilation associated with obesity: Plan: Tracheostomy in place Follows with [facility] for her chronic trach (9) Chronic diastolic congestive heart failure: Plan: Compensated Cont diuretics Cont BB (10) Wound, breast: Plan: right seen by Wound Care nurse earlier in the stay continue dressing changes as per wound care team (11) Hypothyroidism (acquired): Plan: TSH was normal at 2.09 in 11/2021 TSH 08/18/22 mildly high Continue home levothyroxine but increased dose to 225mcg from 200mcg once daily repeat TSH 6 weeks around Sep 04 (12) GERD (gastroesophageal reflux disease): Plan: Continue Protonix 40mg BID (13) Dyslipidemia: Plan: Continue statin (14) Coronary artery disease: Plan: As above NO recent ischemic symptoms Cont asa, statin, BB, imdur Plan DVT prophylaxis -- Lovenox 40mg BID. Disposition-case management on consult to assist in dc planning. She is medically stable for discharge. Multiple referrals sent out and are pending. Dispo remains uncertain as she has multiple factors complicating a facility's ability to care for patient given her need for bariatric bed + metal trach. daughter updated by phone 08/18/22 and again 08/22/22 Admission and Anticipated Discharge Date Admission Date: July 25, 2022 Subjective Pt has no complaints. Review of Systems Review of Systems: All systems reviewed & are unremarkable except as noted in HPI & below Physical Exam Constitutional: WD/WN, vitals as above Eyes: + anicteric sclerae Neck: + abnormal visual inspection (metal trach in place) Skin: no rashes, warm and dry Neurologic: moves all extremities and awake; no focal motor deficits Psychiatric: A+Ox3, euthymic affect Results & Data Results & Data ([facility]) Vital Signs (Past 12 Hours) Vital Signs Temp Pulse Resp BP Pulse Ox O2 Del Method 08/26/22 11:00 Room Air, Trach Collar 08/26/22 11:13 79 20 95 Room Air 08/26/22 07:48 36.3 C L 66 17 116/76 95 Room Air 08/26/22 07:44 70 20 94 Room Air PG Care Time/CCT Total # of Minutes Spent Total Time Spent with Patient: Total time spent is greater than 50% in coordination of care (as documented) at patient's floor/unit and/or counseling patient: Coding Level of Care Code 80673 Subseq Hosp Care Lvl 1 Diagnoses Weakness R53.1 Fracture of distal end of right femur S72.401A CKD (chronic kidney disease) stage 4, GFR 15-29 ml/min N18.4 Morbid obesity E66.01 Type 2 diabetes mellitus E11.9 Chronic respiratory failure J96.10 Respiratory failure complication: unspecified whether with hypoxia or hypercapnia HTN (hypertension) I10 Hypoventilation associated with obesity E66.2 Chronic diastolic congestive heart failure I50.32 Wound, breast S21.009A Hypothyroidism (acquired) E03.9 GERD (gastroesophageal reflux disease) K21.9 Dyslipidemia E78.5 Coronary artery disease I25.10 (1) Chronic respiratory failure Respiratory failure complication: unspecified whether with hypoxia or hypercapnia Qualified Code(s): J96.10 - Chronic respiratory failure, unspecified whether with hypoxia or hypercapnia
[2022-08-26] MEDS: oxyCODONE HCL IR 5 MG TAB (IMMEDIATE RELEASE) PO PRN (12:57)
[2022-08-26] MEDS: MONTELUKAST SODIUM 10 MG TABLET PO SCH (20:31)
[2022-08-26] MEDS: MELATONIN 3 MG TAB PO SCH (20:33)
[2022-08-26] MEDS: ATORVASTATIN 40 MG TAB PO SCH (20:33)
[2022-08-26] MEDS: ALUMINUM/MAGNESIUM SUSP 30 ML UDC PO PRN (22:06)
[2022-08-27] MEDS: TORSEMIDE 10 MG TAB PO SCH ×2 (06:18→14:58)
[2022-08-27] MEDS: LEVOTHYROXINE SODIUM 75 MCG TABLET PO SCH (06:18)
[2022-08-27] MEDS: Ipratropium HFA Inhaler (Combivent Respimat P&T Subs) INH SCH ×4 (07:18→19:19)
[2022-08-27] MEDS: Albuterol HFA 8 GM Inhaler (Combivent Respimat P&T Subs) INH SCH ×4 (07:19→19:19)
[2022-08-27] MEDS: ACETAMINOPHEN 500 MG TAB PO SCH ×3 (08:21→21:16)
[2022-08-27] MEDS: DICLOFENAC SOD 1% GEL 100 GM TUBE EXT SCH ×4 (08:22→21:18)
[2022-08-27] MEDS: DOCUSATE SODIUM 100 MG CAP PO SCH ×2 (08:22→21:15)
[2022-08-27] MEDS: buPROPion SR 100 MG TABCR PO SCH ×2 (08:22→21:13)
[2022-08-27] MEDS: ASPIRIN 81 MG ECTAB PO SCH (08:22)
[2022-08-27] MEDS: ENOXAPARIN INJ 40 MG/0.4 ML SYR SQ SCH ×2 (08:23→21:17)
[2022-08-27] MEDS: FOLIC ACID 1 MG TAB PO SCH (08:23)
[2022-08-27] MEDS: PANTOprazole 40 MG TAB PO SCH ×2 (08:24→21:17)
[2022-08-27] MEDS: ADVANCED PROBIOTIC 1250 MG CAPSULE PO SCH (08:24)
[2022-08-27] MEDS: MULTIVITAMIN TAB PO SCH (08:24)
[2022-08-27] MEDS: POTASSIUM CHLORIDE CRTAB 20 MEQ TABCR PO SCH ×2 (08:25→21:14)
[2022-08-27] MEDS: TOPIRAMATE 100 MG TAB PO SCH ×2 (08:25→21:16)
[2022-08-27] MEDS: SPIRONOLACTONE 25 MG TAB PO SCH (08:26)
[2022-08-27] MEDS: ISOSORBIDE MONO EXTENDED REL 30 MG TABCR PO SCH (08:27)
[2022-08-27] MEDS: METOPROLOL TARTRATE 25 MG TAB PO SCH ×2 (08:27→21:14)
[2022-08-27] MEDS: LANTUS PER UNIT CHARGE SQ SCH ×2 (08:35→21:27)
[2022-08-27] MEDS: INSULIN ASPART PER UNIT SC SCH ×4 (08:36→21:21)
[2022-08-27] MEDS: oxyCODONE HCL IR 5 MG TAB (IMMEDIATE RELEASE) PO PRN (13:11)
--- NOTE | 2022-08-27 18:29 | Hospitalist Progress Note ---
Date of Service August 27, 2022 Assessment & Plan (1) Weakness: Plan: Prior to this admission patient had 4-month long stay at [facility] in [place] after sustaining a RIGHT femur fracture. She was there for prolonged stay due to extreme difficulty finding rehab placement. She was discharged to a nursing facility in [place] for a short time (~2 weeks) and then was discharged from there to home. Upon arrival home she could not ambulate/transfer into the house; collapsed to the ground; EMS advised her going to [facility]. Admitted here on 07/24/22. Weakness is 2nd to severe deconditioning due to prolonged immobilization/institutionalization. TSH 11/2021 wnl. TSH mildly high thus increased synthroid as below. B12 level wnl. 25-OH vit D level wnl. Cont PT/OT. Patient desires to go home but this is simply not possible given her right knee/leg issues and severe deconditioning. she would need 24/7 care at home and this is not attainable. CM found a rehab that is accepting but pt refusing to go as too far from her home and her daughter would have difficulty getting there to visit her. Discussed with daughter who will think things over and give us her opinion on Tuesday I strongly encouraged both pt and daughter to go to this rehab as the longer she stays in the hospital, the weaker she will get. (2) Fracture of distal end of right femur: Plan: RIGHT. 2021. s/p admission to [facility] for such. treated nonoperatively there. Seen by Dr. Su, indicates that femur fx is not healed and will likely not heal further * Cont NWB status to RLE * Transfer bed to wheelchair or chair and bedside commode with assistance of a walker * Needs SNF w/ rehab in order to get her to safely transfer Cont oxycodone 10mg po q8h prn, but mostly just takes prior to PT Cont voltaren gel 4gm QID to R knee scheduled x-rays R knee 08/20/22 unchanged from prior films. 25-OH vit D level wnl this admission. (3) CKD (chronic kidney disease) stage 4, GFR 15-29 ml/min: Plan: Cr stable throughout this admission Cr 1.59 on 08/18/22 and 1.4 on 08/25 Cr baseline 1.4 to about 1.8 would check Cr about 1x/week to ensure stability (4) Morbid obesity: Plan: BMI 56 needs weight loss (5) Type 2 diabetes mellitus: Plan: HbA1c 8.9% pharmacy glycemic team managing her DM Control remains good-excellent at this time Had an insulin pump prior to admission - this is on hold Empagliflozin held current regimen - lantus BID + novolog SSI (6) Chronic respiratory failure: Plan: Stable. Probably predominantly OHS mediated Metal trach in place since 2007 Continue trach care (7) HTN (hypertension): Plan: Controlled Continue Imdur Cont metoprolol Cont aldactone Cont torsemide most recent BMP/mag wnl (08/18/22) - check about 1x/week for stability purposes (8) Hypoventilation associated with obesity: Plan: Tracheostomy in place Follows with [facility] for her chronic trach (9) Chronic diastolic congestive heart failure: Plan: Compensated Cont diuretics Cont BB (10) Wound, breast: Plan: right seen by Wound Care nurse earlier in the stay continue dressing changes as per wound care team (11) Hypothyroidism (acquired): Plan: TSH was normal at 2.09 in 11/2021 TSH 08/18/22 mildly high Continue home levothyroxine but increased dose to 225mcg from 200mcg once daily repeat TSH 6 weeks around Sep 04 (12) GERD (gastroesophageal reflux disease): Plan: Continue Protonix 40mg BID (13) Dyslipidemia: Plan: Continue statin (14) Coronary artery disease: Plan: As above NO recent ischemic symptoms Cont asa, statin, BB, imdur Plan DVT prophylaxis -- Lovenox 40mg BID. Disposition-case management on consult to assist in dc planning. She is medically stable for discharge. Multiple referrals sent out and finally found one rehab that will accept but pt refusing to go there at this time due to the distance from her home/daughter. Daughter to think things over and give her opinion on Thursday 08/30. If daughter is agreeable, I'm certain pt would be too DDiscussed care with daughter 08/27 Admission and Anticipated Discharge Date Admission Date: July 25, 2022 Subjective Pt very upset about hearing that the rehab found for her is 1.5 hours away and is refusing to go. She says she would rather go home but has no oconnell in place for home care. I did reach out to her daughter who will think things over and then let us know what she decides on Tuesday. Review of Systems Review of Systems: All systems reviewed & are unremarkable except as noted in HPI & below Physical Exam Constitutional: WD/WN, vitals as above Eyes: + anicteric sclerae Neck: + abnormal visual inspection (metal trach in place) Respiratory: normal respiratory effort, lungs clear to auscultation Cardiovascular: RRR, no murmur, no edema Chest (Breasts): Chest: normal inspection of chest Gastrointestinal (Abdomen): normal bowel sounds, soft, nontender, no hepatosplenomegaly Musculoskeletal: Extremities: extremities normal to inspection; no cyanosis and no clubbing Skin: no rashes, warm and dry Neurologic: moves all extremities and awake; no focal motor deficits Psychiatric: Orientation: alert and oriented x 3 Mood: + angry mood Lymphatic: no lymphedema Results & Data Results & Data ([facility]) Vital Signs (Past 12 Hours) Vital Signs Temp Pulse Pulse Resp BP Pulse Ox O2 Del Method 08/27/22 15:12 36.8 C 77 18 116/70 92 Room Air 08/27/22 14:49 76 20 94 Room Air 08/27/22 11:29 75 22 93 Room Air 08/27/22 08:28 80 145/81 H 08/27/22 07:30 Room Air 08/27/22 07:43 36.5 C 72 20 104/65 93 Room Air 08/27/22 07:20 73 22 93 Room Air PG Care Time/CCT Total # of Minutes Spent Total Time Spent with Patient: Total time spent is greater than 50% in coordination of care (as documented) at patient's floor/unit and/or counseling patient: Coding Level of Care Code 90561 Subseq Hosp Care Lvl 1 Diagnoses Weakness R53.1 Fracture of distal end of right femur S72.401A CKD (chronic kidney disease) stage 4, GFR 15-29 ml/min N18.4 Morbid obesity E66.01 Type 2 diabetes mellitus E11.9 Chronic respiratory failure J96.10 Respiratory failure complication: unspecified whether with hypoxia or hypercapnia HTN (hypertension) I10 Hypoventilation associated with obesity E66.2 Chronic diastolic congestive heart failure I50.32 Wound, breast S21.009A Hypothyroidism (acquired) E03.9 GERD (gastroesophageal reflux disease) K21.9 Dyslipidemia E78.5 Coronary artery disease I25.10 (1) Chronic respiratory failure Respiratory failure complication: unspecified whether with hypoxia or hypercapnia Qualified Code(s): J96.10 - Chronic respiratory failure, unspecified whether with hypoxia or hypercapnia
[2022-08-27] MEDS: ATORVASTATIN 40 MG TAB PO SCH (21:15)
[2022-08-27] MEDS: MONTELUKAST SODIUM 10 MG TABLET PO SCH (21:15)
[2022-08-27] MEDS: MELATONIN 3 MG TAB PO SCH (21:17)
[2022-08-28] MEDS: LEVOTHYROXINE SODIUM 75 MCG TABLET PO SCH (06:17)
[2022-08-28] MEDS: TORSEMIDE 10 MG TAB PO SCH ×2 (06:17→14:10)
[2022-08-28 07:36] LABS: Creatinine Clr Calc Pharmacy 49.3 ml/min; Est GFR (Non-African American) 35.4 ml/min
[2022-08-28] MEDS: Ipratropium HFA Inhaler (Combivent Respimat P&T Subs) INH SCH ×4 (07:41→19:46)
[2022-08-28] MEDS: Albuterol HFA 8 GM Inhaler (Combivent Respimat P&T Subs) INH SCH ×4 (07:41→19:45)
[2022-08-28] MEDS: DOCUSATE SODIUM 100 MG CAP PO SCH ×2 (08:33→21:40)
[2022-08-28] MEDS: FOLIC ACID 1 MG TAB PO SCH (08:33)
[2022-08-28] MEDS: METOPROLOL TARTRATE 25 MG TAB PO SCH ×2 (08:33→21:43)
[2022-08-28] MEDS: ACETAMINOPHEN 500 MG TAB PO SCH ×3 (08:33→21:42)
[2022-08-28] MEDS: ISOSORBIDE MONO EXTENDED REL 30 MG TABCR PO SCH (08:33)
[2022-08-28] MEDS: ADVANCED PROBIOTIC 1250 MG CAPSULE PO SCH (08:33)
[2022-08-28] MEDS: buPROPion SR 100 MG TABCR PO SCH ×2 (08:33→21:42)
[2022-08-28] MEDS: ASPIRIN 81 MG ECTAB PO SCH (08:33)
[2022-08-28] MEDS: ENOXAPARIN INJ 40 MG/0.4 ML SYR SQ SCH ×2 (08:34→21:42)
[2022-08-28] MEDS: POTASSIUM CHLORIDE CRTAB 20 MEQ TABCR PO SCH ×2 (08:34→21:44)
[2022-08-28] MEDS: SPIRONOLACTONE 25 MG TAB PO SCH (08:34)
[2022-08-28] MEDS: MULTIVITAMIN TAB PO SCH (08:34)
[2022-08-28] MEDS: TOPIRAMATE 100 MG TAB PO SCH ×2 (08:34→21:46)
[2022-08-28] MEDS: PANTOprazole 40 MG TAB PO SCH ×2 (08:34→21:45)
[2022-08-28] MEDS: DICLOFENAC SOD 1% GEL 100 GM TUBE EXT SCH ×4 (08:35→21:42)
[2022-08-28] MEDS: LANTUS PER UNIT CHARGE SQ SCH ×2 (08:48→21:53)
[2022-08-28] MEDS: INSULIN ASPART PER UNIT SC SCH ×4 (08:49→21:53)
--- NOTE | 2022-08-28 10:39 | Hospitalist Progress Note ---
Date of Service August 28, 2022 Assessment & Plan (1) Weakness: Plan: Prior to this admission patient had 4-month long stay at [facility] in [place] after sustaining a RIGHT femur fracture. She was there for prolonged stay due to extreme difficulty finding rehab placement. She was discharged to a nursing facility in [place] for a short time (~2 weeks) and then was discharged from there to home. Upon arrival home she could not ambulate/transfer into the house; collapsed to the ground; EMS advised her going to [facility]. Admitted here on 07/24/22. Weakness is 2nd to severe deconditioning due to prolonged immobilization/institutionalization. TSH 11/2021 wnl. TSH mildly high thus increased synthroid as below. B12 level wnl. 25-OH vit D level wnl. Cont PT/OT. Patient desires to go home patient states that her outpatient rn case manager whose name is Dannielle and phone number is [phone] on monitor [employer] is trying to arrange for certain devices at home these would include a ramp, a lift chair, wheelchair accessible front door and interior doors, drop side commode, patient currently has electric wheelchair but cannot fit into her home due to the size of the dorsal lack of ramp. CM found a rehab that is accepting but due to his distance from home and inability of her family to travel this would in essence stranded her far from home once again as her previous experience was in the [place] area Discussed with daughter who will think things over and give us her opinion on Tuesday (2) Fracture of distal end of right femur: Plan: RIGHT. 2021. s/p admission to [facility] for such. treated nonoperatively there. Seen by Dr. Su, indicates that femur fx is not healed and will likely not heal further * Cont NWB status to RLE * Transfer bed to wheelchair or chair and bedside commode with assistance of a walker * Needs SNF w/ rehab in order to get her to safely transfer Cont oxycodone 10mg po q8h prn, but mostly just takes prior to PT Cont voltaren gel 4gm QID to R knee scheduled x-rays R knee 08/20/22 unchanged from prior films. 25-OH vit D level wnl this admission. (3) CKD (chronic kidney disease) stage 4, GFR 15-29 ml/min: Plan: Cr stable throughout this admission Cr 1.59 on 08/18/22 and 1.4 on 08/25 Cr baseline 1.4 to about 1.8 (4) Morbid obesity: Plan: BMI 56 needs weight loss (5) Type 2 diabetes mellitus: Plan: HbA1c 8.9% pharmacy glycemic team managing her DM Control remains good-excellent at this time Had an insulin pump prior to admission - this is on hold Empagliflozin held current regimen - lantus BID + novolog SSI (6) Chronic respiratory failure: Plan: Stable. Probably predominantly OHS mediated Metal trach in place since 2007 Continue trach care (7) HTN (hypertension): Plan: Controlled Continue Imdur Cont metoprolol Cont aldactone Cont torsemide most recent BMP/mag wnl (08/18/22) - check about 1x/week for stability purposes (8) Hypoventilation associated with obesity: Plan: Tracheostomy in place Follows with [facility] for her chronic trach (9) Chronic diastolic congestive heart failure: Plan: Compensated Cont diuretics Cont BB (10) Wound, breast: Plan: right seen by Wound Care nurse earlier in the stay continue dressing changes as per wound care team (11) Hypothyroidism (acquired): Plan: TSH was normal at 2.09 in 11/2021 TSH 08/18/22 mildly high Continue home levothyroxine but increased dose to 225mcg from 200mcg once daily repeat TSH 6 weeks around Sep 04 (12) GERD (gastroesophageal reflux disease): Plan: Continue Protonix 40mg BID (13) Dyslipidemia: Plan: Continue statin (14) Coronary artery disease: Plan: As above NO recent ischemic symptoms Cont asa, statin, BB, imdur Plan DVT prophylaxis -- Lovenox 40mg BID. Disposition-case management on consult to assist in dc planning. She is medically stable for discharge. Multiple referrals sent out and finally found one rehab that will accept but pt refusing to go there at this time due to the distance from her home/daughter. Daughter to think things over and give her opinion on Thursday 08/30. If daughter is agreeable, this may influence the patient's opinion DDiscussed care with daughter 08/27 Admission and Anticipated Discharge Date Admission Date: July 25, 2022 Subjective Pt tearful and crying, very upset about hearing that the rehab found for her is 1.5 hours away and requested vital alternative solution even when that she may go home.. She says she would rather go home but feels that her outpatient rn case manager is trying to coordinate making her home or handicap equipped patient says she is able to transfer relatively easily here in the hospital if she has some kitchen assistant devices at home should be able to go home rather than go to rehabilitation. Review of Systems Review of Systems: Mild distress and fatigue no headache, no visual changes no speech or swallowing issues as speak by occluding her chronic tracheostomy no chest pain, pressure or palpitations no shortness of breath, cough or wheezes no abdominal pain, nausea or vomiting, diarrhea or constipation no dysuria, hematuria or frequency right knee pain with no swelling or redness mostly medial no back pain, CVA tenderness or radicular pain no bruising, bleeding or rashes no focal signs of weakness or numbness or altered sensation no complaints of anxiety or depression.. Physical Exam Physical Exam: The patient appeared well nourished and normally developed. Patient is morbidly obese with a BMI of 56 Vital signs as documented. Head exam is normocephalic atraumatic Neck is without JVD, thyromegaly, or carotid bruits. Tracheostomy is in place patient closes to speak Lungs are clear to auscultation, no focal loss of breath sounds coarse breath sounds are heard Cardiac exam, Rhythm is regular.. No murmurs, rubs or gallops. Abdominal exam reveals normal bowel sounds, soft non tender, no masses Extremities are nonedematous and both pedal pulses are present, right knee is not hot warm or reddened, medial pain to exam Neurologic exam is alert and oriented, no focal loss of strength or sensation she does have some weakness to her lower extremities Skin is without bruises or rashes Psychologically is without concerns for anxiety or depression.. Results & Data Results & Data ([facility]) Vital Signs (Past 12 Hours) Vital Signs Temp Pulse Resp BP Pulse Ox O2 Del Method FiO2 08/28/22 07:41 72 18 95 Room Air 21 08/28/22 08:02 97.7 F 72 16 121/84 92 Room Air PG Care Time/CCT Total # of Minutes Spent Total Time Spent with Patient: Total time spent is greater than 50% in coordination of care (as documented) at patient's floor/unit and/or counseling patient: Coding Level of Care Code 83482 Subseq Hosp Care Lvl 2 Diagnoses Weakness R53.1 Fracture of distal end of right femur S72.401A CKD (chronic kidney disease) stage 4, GFR 15-29 ml/min N18.4 Morbid obesity E66.01 Type 2 diabetes mellitus E11.9 Chronic respiratory failure J96.10 Respiratory failure complication: unspecified whether with hypoxia or hypercapnia HTN (hypertension) I10 Hypoventilation associated with obesity E66.2 Chronic diastolic congestive heart failure I50.32 Wound, breast S21.009A Hypothyroidism (acquired) E03.9 GERD (gastroesophageal reflux disease) K21.9 Dyslipidemia E78.5 Coronary artery disease I25.10 (1) Chronic respiratory failure Respiratory failure complication: unspecified whether with hypoxia or hypercapnia Qualified Code(s): J96.10 - Chronic respiratory failure, unspecified whether with hypoxia or hypercapnia
[2022-08-28] MEDS: MELATONIN 3 MG TAB PO SCH (21:39)
[2022-08-28] MEDS: ATORVASTATIN 40 MG TAB PO SCH (21:40)
[2022-08-28] MEDS: MONTELUKAST SODIUM 10 MG TABLET PO SCH (21:42)
[2022-08-29] MEDS: LEVOTHYROXINE SODIUM 75 MCG TABLET PO SCH (06:11)
[2022-08-29] MEDS: TORSEMIDE 10 MG TAB PO SCH ×2 (06:11→14:35)
[2022-08-29] MEDS: Ipratropium HFA Inhaler (Combivent Respimat P&T Subs) INH SCH ×4 (08:04→19:45)
[2022-08-29] MEDS: Albuterol HFA 8 GM Inhaler (Combivent Respimat P&T Subs) INH SCH ×4 (08:04→19:45)
--- NOTE | 2022-08-29 08:21 | Hospitalist Progress Note ---
Date of Service August 29, 2022 Assessment & Plan (1) Weakness: Plan: Prior to this admission patient had 4-month long stay at [facility] in [place] after sustaining a RIGHT femur fracture. She was there for prolonged stay due to extreme difficulty finding rehab placement. She was discharged to a nursing facility in [place] for a short time (~2 weeks) and then was discharged from there to home. Upon arrival home she could not ambulate/transfer into the house; collapsed to the ground; EMS advised her going to [facility]. Admitted here on 07/24/22. Weakness is 2nd to severe deconditioning due to prolonged immobilization/institutionalization. TSH 11/2021 wnl. TSH mildly high thus increased synthroid as below. B12 level wnl. 25-OH vit D level wnl. Cont PT/OT. Patient desires to go home patient states that her outpatient ed case manager whose name is Dannielle and phone number is [phone] on monitor [email or web address] is trying to arrange for certain devices at home these would include a ramp, a lift chair, wheelchair accessible front door and interior doors, drop side commode, patient currently has electric wheelchair but cannot fit into her home due to the size of the dorsal lack of ramp. CM found a rehab that is accepting but due to his distance from home and inability of her family to travel this would in essence stranded her far from home once again as her previous experience was in the [place] area Discussed with daughter who will think things over and give us her opinion on Tuesday --> food service driver helping to arrange her get wider doors/shower stall States will need rx for motorized wheelchair, ramp, lift chair and dropped side toilet. Will provide to Cm on Tuesday Patient states she is hopeful to have things arranged possible for Tuesday this week? (2) Fracture of distal end of right femur: Plan: RIGHT. 2021. s/p admission to [facility] for such. treated nonoperatively there. Seen by Dr. Su, indicates that femur fx is not healed and will likely not heal further * Cont NWB status to RLE * Transfer bed to wheelchair or chair and bedside commode with assistance of a walker * Needs SNF w/ rehab in order to get her to safely transfer Cont oxycodone 10mg po q8h prn, but mostly just takes prior to PT Cont voltaren gel 4gm QID to R knee scheduled x-rays R knee 08/20/22 unchanged from prior films. 25-OH vit D level wnl this admission. (3) CKD (chronic kidney disease) stage 4, GFR 15-29 ml/min: Plan: Cr stable throughout this admission Cr 1.59 on 08/18/22 and 1.4 on 08/25 Cr baseline 1.4 to about 1.8 (4) Morbid obesity: Plan: BMI 56 needs weight loss, ?if able to consider Mounjaro vs Ozempic in future for additional weight loss/DM in future (5) Type 2 diabetes mellitus: Plan: HbA1c 8.9% pharmacy glycemic team managing her DM Control remains good-excellent at this time Had an insulin pump prior to admission - this is on hold Empagliflozin held current regimen - lantus BID + novolog SSI (6) Chronic respiratory failure: Plan: Stable. Probably predominantly OHS mediated Metal trach in place since 2007 Continue trach care (7) HTN (hypertension): Plan: Controlled Continue Imdur Cont metoprolol Cont aldactone Cont torsemide most recent BMP/mag wnl (08/18/22) - check about 1x/week for stability purposes --> will check for AM (8) Hypoventilation associated with obesity: Plan: Tracheostomy in place Follows with [facility] for her chronic trach (9) Chronic diastolic congestive heart failure: Plan: Compensated Cont diuretics Cont BB (10) Wound, breast: Plan: right seen by Wound Care nurse earlier in the stay continue dressing changes as per wound care team (11) Hypothyroidism (acquired): Plan: TSH was normal at 2.09 in 11/2021 TSH 08/18/22 mildly high Continue home levothyroxine but increased dose to 225mcg from 200mcg once daily -- continue at d/c repeat TSH 6 weeks around Sep 04 (12) GERD (gastroesophageal reflux disease): Plan: Continue Protonix 40mg BID (13) Dyslipidemia: Plan: Continue statin (14) Coronary artery disease: Plan: As above NO recent ischemic symptoms Cont asa, statin, BB, imdur Plan DVT prophylaxis -- Lovenox 40mg BID. Disposition-case management on consult to assist in dc planning. She is medically stable for discharge. Multiple referrals sent out and finally found one rehab that will accept but pt refusing to go there at this time due to the distance from her home/daughter. Daughter to think things over and give her opinion on Thursday 08/30. If daughter is agreeable, this may influence the patient's opinion Discussed care with daughter 08/27 Per patient, possible d/c home later this week if home arrangements able to be made. Will touch base with CM Tuesday to see about rxs Will check labs in AM to ensure stability Admission and Anticipated Discharge Date Admission Date: July 25, 2022 Supervising Physician Co-Signing Physician Notes PA Supervision Note: I did not personally see or examine the patient today, but I verified all pappas points of KATIE Ordonez's assessment and plan with the following exceptions/additions: None Subjective eval this morning doing well appears to be in good spirits after support and discussion hopeful for arrangements with food service driver for wider doors mid-week and hopeful to go home. will need rx for supplies -- will coordinate with CM to assist to arrange whatever. No fever/chills/cp/sob. Trach stable, been in place since 2007. Eating/drinking without issue, moving bowels. Last BM this morning. Questions/concerns addressed at this time. Review of Systems Review of Systems: All systems reviewed & are unremarkable except as noted in HPI & below Physical Exam Physical Exam: General: WD, morbidly obese female sitting up in bed, NAD HEENT; head normocephalic, atraumatic, mmm, metal trach Resp: diminished in bases, coarse breath sounds, no wheezing, no distress, on room air CV: RRR, no m/r/g, no pitting edema GI: +BS, soft, nontender MSK/Neuro: generalized weakness b/l LE, NVI, pulses palpable Psych: AOx3, cooperative Results & Data Results & Data ([facility]) Vital Signs (Past 12 Hours) Vital Signs Temp Pulse Resp BP BP Pulse Ox O2 Del Method 08/29/22 08:06 73 20 93 Room Air 08/29/22 07:50 36.5 C 73 16 154/79 H 92 Room Air 08/28/22 21:30 Room Air 08/28/22 20:58 36.7 C 82 20 130/70 92 Room Air FiO2 08/29/22 08:06 21 08/29/22 07:50 08/28/22 21:30 08/28/22 20:58 PG Care Time/CCT Total # of Minutes Spent Total Time Spent with Patient: Total time spent is greater than 50% in coordination of care (as documented) at patient's floor/unit and/or counseling patient: Coding Level of Care Code 39381 Subseq Hosp Care Lvl 2 Diagnoses Weakness R53.1 Fracture of distal end of right femur S72.401A CKD (chronic kidney disease) stage 4, GFR 15-29 ml/min N18.4 Morbid obesity E66.01 Type 2 diabetes mellitus E11.9 Chronic respiratory failure J96.10 Respiratory failure complication: unspecified whether with hypoxia or hypercapnia HTN (hypertension) I10 Hypoventilation associated with obesity E66.2 Chronic diastolic congestive heart failure I50.32 Wound, breast S21.009A Hypothyroidism (acquired) E03.9 GERD (gastroesophageal reflux disease) K21.9 Dyslipidemia E78.5 Coronary artery disease I25.10 (1) Chronic respiratory failure Respiratory failure complication: unspecified whether with hypoxia or hypercapnia Qualified Code(s): J96.10 - Chronic respiratory failure, unspecified whether with hypoxia or hypercapnia
[2022-08-29] MEDS: ACETAMINOPHEN 500 MG TAB PO SCH ×3 (08:53→20:31)
[2022-08-29] MEDS: ASPIRIN 81 MG ECTAB PO SCH (08:53)
[2022-08-29] MEDS: SPIRONOLACTONE 25 MG TAB PO SCH (08:54)
[2022-08-29] MEDS: ADVANCED PROBIOTIC 1250 MG CAPSULE PO SCH (08:54)
[2022-08-29] MEDS: ISOSORBIDE MONO EXTENDED REL 30 MG TABCR PO SCH (08:54)
[2022-08-29] MEDS: FOLIC ACID 1 MG TAB PO SCH (08:54)
[2022-08-29] MEDS: buPROPion SR 100 MG TABCR PO SCH ×2 (08:54→20:33)
[2022-08-29] MEDS: PANTOprazole 40 MG TAB PO SCH ×2 (08:54→20:34)
[2022-08-29] MEDS: DOCUSATE SODIUM 100 MG CAP PO SCH ×2 (08:54→20:34)
[2022-08-29] MEDS: METOPROLOL TARTRATE 25 MG TAB PO SCH ×2 (08:54→20:34)
[2022-08-29] MEDS: MULTIVITAMIN TAB PO SCH (08:54)
[2022-08-29] MEDS: TOPIRAMATE 100 MG TAB PO SCH ×2 (08:55→20:34)
[2022-08-29] MEDS: ENOXAPARIN INJ 40 MG/0.4 ML SYR SQ SCH ×2 (08:55→20:34)
[2022-08-29] MEDS: DICLOFENAC SOD 1% GEL 100 GM TUBE EXT SCH ×4 (08:55→20:33)
[2022-08-29] MEDS: POTASSIUM CHLORIDE CRTAB 20 MEQ TABCR PO SCH ×2 (08:55→20:36)
[2022-08-29] MEDS: INSULIN ASPART PER UNIT SC SCH ×4 (09:04→21:26)
[2022-08-29] MEDS: LANTUS PER UNIT CHARGE SQ SCH ×2 (09:06→21:25)
[2022-08-29] MEDS: ATORVASTATIN 40 MG TAB PO SCH (20:32)
[2022-08-29] MEDS: MONTELUKAST SODIUM 10 MG TABLET PO SCH (20:34)
[2022-08-29] MEDS: MELATONIN 3 MG TAB PO SCH (20:35)
[2022-08-30] MEDS: LEVOTHYROXINE SODIUM 75 MCG TABLET PO SCH (05:41)
[2022-08-30 06:51] LABS: BUN Creatinine Ratio 26.1 (10-20); Calcium 9.2 mg/dl (8.5-10.1); Est GFR (African American) 47.7 ml/min; Est GFR (Non-African American) 41.2 ml/min; Magnesium 2.1 mg/dl (1.7-2.4); Potassium 4.2 mmol/L (3.5-5.1)
[2022-08-30] MEDS: Albuterol HFA 8 GM Inhaler (Combivent Respimat P&T Subs) INH SCH ×4 (07:07→19:16)
[2022-08-30] MEDS: Ipratropium HFA Inhaler (Combivent Respimat P&T Subs) INH SCH ×4 (07:08→19:16)
--- NOTE | 2022-08-30 08:00 | Hospitalist Progress Note ---
Date of Service August 30, 2022 Assessment & Plan (1) Weakness: Plan: Prior to this admission patient had 4-month long stay at [facility] in [place] after sustaining a RIGHT femur fracture. She was there for prolonged stay due to extreme difficulty finding rehab placement. She was discharged to a nursing facility in [place] for a short time (~2 weeks) and then was discharged from there to home. Upon arrival home she could not ambulate/transfer into the house; collapsed to the ground; EMS advised her going to [facility]. Admitted here on 07/24/22. Weakness is 2nd to severe deconditioning due to prolonged immobilization/institutionalization. TSH 11/2021 wnl. TSH mildly high thus increased synthroid as below. B12 level wnl. 25-OH vit D level wnl. Cont PT/OT. Patient desires to go home patient states that her outpatient dependency case manager whose name is Dannielle and phone number is [phone] on monitor [facility] [employer] and [employer] is trying to arrange for certain devices at home these would include a ramp, a lift chair, wheelchair accessible front door and interior doors, drop side commode, patient currently has electric wheelchair but cannot fit into her home due to the size of the dorsal lack of ramp. CM found a rehab that is accepting but due to his distance from home and inability of her family to travel this would in essence stranded her far from home once again as her previous experience was in the [place] area Discussed with daughter who will think things over and give us her opinion on Tuesday --> bookkeeping service sales agent helping to arrange her get wider doors/shower stall Patient states she is hopeful to have things arranged possible for Tuesday this week? 08/30 -- repeat labs remain stable with electrolytes, kidney function actually improved from baseline, currently 1.34 -- Medications for pain to fall off JAN, extended. Monitor given increased length of stay -- Alerted CM of bookkeeping service sales agent to obtain # from patient and see about making arrangements to get patient home rather than to SNF/PCH given her wishes and what appears to be insurance coverage of such but will need to confirm. Will provide rx for equipment for home in order to safely care for Viviana at home given current situation with rx for motorized wheelchair, ramp, lift chair and dropped side toilet. (2) Fracture of distal end of right femur: Plan: RIGHT. 2021. s/p admission to [facility] for such. treated nonoperatively there. Seen by Dr. Su, indicates that femur fx is not healed and will likely not heal further * Cont NWB status to RLE * Transfer bed to wheelchair or chair and bedside commode with assistance of a walker * Needs SNF w/ rehab in order to get her to safely transfer Cont oxycodone 10mg po q8h prn, but mostly just takes prior to PT Cont voltaren gel 4gm QID to R knee scheduled x-rays R knee 08/20/22 unchanged from prior films. 25-OH vit D level wnl this admission. (3) CKD (chronic kidney disease) stage 4, GFR 15-29 ml/min: Plan: Cr stable throughout this admission Cr 1.59 on 08/18/22 and 1.4 on 08/25 Cr baseline 1.4 to about 1.8 Cr stable 1.34 (4) Morbid obesity: Plan: BMI 56 needs weight loss, ?if able to consider Mounjaro vs Ozempic in future for additional weight loss/DM in future (5) Type 2 diabetes mellitus: Plan: HbA1c 8.9% pharmacy glycemic team managing her DM Control remains good-excellent at this time Had an insulin pump prior to admission - this is on hold Empagliflozin held current regimen - lantus BID + novolog SSI Increased lantus to 80u QAM, 75u QH last evening, continue SSI novolog (6) Chronic respiratory failure: Plan: Stable. Probably predominantly OHS mediated Metal trach in place since 2007 Continue trach care , patient cleaning during exam 08/30 (7) HTN (hypertension): Plan: Controlled BP currently 136/66 Continue Imdur Cont metoprolol Cont aldactone Cont torsemide most recent BMP/mag wnl (08/18/22) - check about 1x/week for stability purposes --> repeat stable K 4.2, Mag 2.1 on 08/30 Repeat weekly while inpatient to ensure stability (8) Hypoventilation associated with obesity: Plan: Tracheostomy in place Follows with [facility] for her chronic trach (9) Chronic diastolic congestive heart failure: Plan: Compensated Cont diuretics Cont BB (10) Wound, breast: Plan: right seen by Wound Care nurse earlier in the stay continue dressing changes as per wound care team (11) Hypothyroidism (acquired): Plan: TSH was normal at 2.09 in 11/2021 TSH 08/18/22 mildly high Continue home levothyroxine but increased dose to 225mcg from 200mcg once daily -- continue at d/c repeat TSH 6 weeks around Sep 04 (12) GERD (gastroesophageal reflux disease): Plan: Continue Protonix 40mg BID (13) Dyslipidemia: Plan: Continue statin (14) Coronary artery disease: Plan: As above NO recent ischemic symptoms Cont asa, statin, BB, imdur Plan DVT prophylaxis -- Lovenox 40mg BID. Disposition-case management on consult to assist in dc planning. She is medically stable for discharge. Multiple referrals sent out and finally found one rehab that will accept but pt refusing to go there at this time due to the distance from her home/daughter. Daughter to think things over and give her opinion on Thursday 08/30. If daughter is agreeable, this may influence the patient's opinion Discussed care with daughter 08/27 Updated CM on need for rx/bookkeeping service sales agent and they are to reach out today to see if arrangements truly able to be made Admission and Anticipated Discharge Date Admission Date: July 25, 2022 Subjective Patient evaluated this morning. No new issues, discussed awaiting CM to see if able to arrange with her bookkeeping service sales agent which they were unaware she had. She states she has the number to provide to them as well. No fever/chills, chest pain, shortness of breath. Currently cleaning her trach, watching TV. Moving her bowels. Questions/concerns addressed. Review of Systems Review of Systems: All systems reviewed & are unremarkable except as noted in HPI & below Physical Exam Physical Exam: General: WD, morbidly obese female sitting up in bed, NAD HEENT; head normocephalic, atraumatic, mmm, metal trach Resp: diminished in bases, coarse breath sounds, no wheezing, no distress, on room air CV: RRR, no m/r/g, no pitting edema GI: +BS, soft, nontender MSK/Neuro: generalized weakness b/l LE, NVI, pulses palpable Psych: AOx3, cooperative Results & Data Results & Data ([facility]) Vital Signs (Past 12 Hours) Vital Signs Temp Pulse Resp BP BP Pulse Ox O2 Del Method 08/30/22 07:39 36.7 C 76 16 136/66 95 Room Air 08/30/22 07:09 89 20 94 Room Air 08/29/22 20:27 Room Air 08/29/22 20:52 36.9 C 90 20 142/76 H 94 Room Air Laboratory Results 08/30/22 08/30/22 08/29/22 Range/Units 07:46 05:31 20:51 Sodium 139 (136-145) mmol/L Potassium 4.2 (3.5-5.1) mmol/L Chloride 107 (98-107) mmol/L Carbon Dioxide 27 (21-32) mmol/L Anion Gap 5 (3-11) BUN 35 H (6-23) mg/dl Creatinine 1.34 H (0.6-1.2) mg/dl Est Cr Clr Drug Dosing 56.0 ml/min Est GFR ( Amer) 47.7 ml/min Est GFR (Non-Af Amer) 41.2 ml/min BUN/Creatinine Ratio 26.1 H (10-20) Glucose 149 H (70-99(Fasting)) mg/dl POC Glucose 117 H 260 H (70-99) mg/dl Calcium 9.2 (8.5-10.1) mg/dl Magnesium 2.1 (1.7-2.4) mg/dl 08/29/22 08/29/22 08/29/22 Range/Units 16:54 11:44 08:06 Sodium (136-145) mmol/L Potassium (3.5-5.1) mmol/L Chloride (98-107) mmol/L Carbon Dioxide (21-32) mmol/L Anion Gap (3-11) BUN (6-23) mg/dl Creatinine (0.6-1.2) mg/dl Est Cr Clr Drug Dosing ml/min Est GFR ( Amer) ml/min Est GFR (Non-Af Amer) ml/min BUN/Creatinine Ratio (10-20) Glucose (70-99(Fasting)) mg/dl POC Glucose 253 H 171 H 128 H (70-99) mg/dl Calcium (8.5-10.1) mg/dl Magnesium (1.7-2.4) mg/dl PG Care Time/CCT Total # of Minutes Spent Total Time Spent with Patient: Total time spent is greater than 50% in coordination of care (as documented) at patient's floor/unit and/or counseling patient: Coding Level of Care Code 99933 Subseq Hosp Care Lvl 2 Diagnoses Weakness R53.1 Fracture of distal end of right femur S72.401A CKD (chronic kidney disease) stage 4, GFR 15-29 ml/min N18.4 Morbid obesity E66.01 Type 2 diabetes mellitus E11.9 Chronic respiratory failure J96.10 Respiratory failure complication: unspecified whether with hypoxia or hypercapnia HTN (hypertension) I10 Hypoventilation associated with obesity E66.2 Chronic diastolic congestive heart failure I50.32 Wound, breast S21.009A Hypothyroidism (acquired) E03.9 GERD (gastroesophageal reflux disease) K21.9 Dyslipidemia E78.5 Coronary artery disease I25.10 (1) Chronic respiratory failure Respiratory failure complication: unspecified whether with hypoxia or hypercapnia Qualified Code(s): J96.10 - Chronic respiratory failure, unspecified whether with hypoxia or hypercapnia
[2022-08-30] MEDS: TORSEMIDE 10 MG TAB PO SCH ×2 (08:08→13:48)
[2022-08-30] MEDS: ACETAMINOPHEN 500 MG TAB PO SCH ×3 (08:31→20:20)
[2022-08-30] MEDS: buPROPion SR 100 MG TABCR PO SCH ×2 (08:32→20:22)
[2022-08-30] MEDS: SPIRONOLACTONE 25 MG TAB PO SCH (08:32)
[2022-08-30] MEDS: POTASSIUM CHLORIDE CRTAB 20 MEQ TABCR PO SCH ×2 (08:32→20:22)
[2022-08-30] MEDS: ISOSORBIDE MONO EXTENDED REL 30 MG TABCR PO SCH (08:32)
[2022-08-30] MEDS: MULTIVITAMIN TAB PO SCH (08:32)
[2022-08-30] MEDS: METOPROLOL TARTRATE 25 MG TAB PO SCH ×2 (08:32→20:21)
[2022-08-30] MEDS: PANTOprazole 40 MG TAB PO SCH ×2 (08:32→20:22)
[2022-08-30] MEDS: ASPIRIN 81 MG ECTAB PO SCH (08:32)
[2022-08-30] MEDS: ADVANCED PROBIOTIC 1250 MG CAPSULE PO SCH (08:32)
[2022-08-30] MEDS: DOCUSATE SODIUM 100 MG CAP PO SCH ×2 (08:32→20:22)
[2022-08-30] MEDS: TOPIRAMATE 100 MG TAB PO SCH ×2 (08:33→20:20)
[2022-08-30] MEDS: ENOXAPARIN INJ 40 MG/0.4 ML SYR SQ SCH ×2 (08:34→20:22)
[2022-08-30] MEDS: FOLIC ACID 1 MG TAB PO SCH (08:34)
[2022-08-30] MEDS: DICLOFENAC SOD 1% GEL 100 GM TUBE EXT SCH ×4 (08:34→20:23)
[2022-08-30] MEDS: INSULIN ASPART PER UNIT SC SCH ×4 (08:45→21:52)
[2022-08-30] MEDS ORDERED: LANTUS PER UNIT CHARGE SQ SCH (09:00)
--- NOTE | 2022-08-30 09:00 | Pharmacy Report ---
Pharmacy Glycemic Short Note 2 - Date of Service August 30, 2022 - Glycemic Short BSG Results (Last 24 hours): 08/29/22 08/29/22 08/29/22 11:44 16:54 20:51 Glucose POC Glucose 171 H 253 H 260 H 08/30/22 08/30/22 05:31 07:46 Glucose 149 H POC Glucose 117 H OUTPATIENT ANTIDIABETIC REGIMEN: * Jardiance 25mg PO daily * Patient on insulin pump in the past (Basal rate 6 units/hr, bolus with 50 units TID meals -- approx 200 units per day) * HbA1c = 8.9% (07/25/22) ASSESSMENT: 08/30: * BSGs had been relatively well-controlled over past several days, however uptrend noted yesterday >250 mg/dL x 2 * Improved fasting BSG, but will increase AM basal with aim of helping high BSGs throughout the day * Continue current Novolog parameters, consider tightening CF tomorrow if still elevated 08/25: * Insulin needs continue to be very high (364 units of insulin yesterday), Lantus increased and CR tightened yesterday * BSGs reasonably controlled yesterday w/ fasting BSG of 155 mg/dL this morning * Continue current regimen, do not anticipate changes to insulin regimen today 08/23: * Insulin needs continue to be very high (285 units of insulin yesterday) * BSGs reasonably controlled yesterday w/ improved fasting BSG of 129 mg/dL this morning * Had been titrating up basal insulin over past several days, given improvement will continue current regimen * Do not anticipate changes to insulin regimen today Background: 67 year old female admitted w/ CP and SOB, morbid obesity, only on PO med for DM, but was previously on high dose insulin via pump. PLAN FOR INPATIENT GLYCEMIC CONTROL: * Hold outpatient oral diabetes medications * Basal insulin * Lantus 80 units SC qAM * Lantus 75 units SC HS * Bolus insulin * NovoLog per scale ACHS or Q6hrs while NPO * Goal Range: Low 110 mg/dL - High 140 mg/dL * Correction Factor: 5 mg/dL/unit * Nutritional / Prandial insulin per carb ratio of 1 unit per 1 grams CHO consumed
[2022-08-30] MEDS: oxyCODONE HCL IR 5 MG TAB (IMMEDIATE RELEASE) PO PRN (12:55)
[2022-08-30] MEDS: MELATONIN 3 MG TAB PO SCH (20:20)
[2022-08-30] MEDS: MONTELUKAST SODIUM 10 MG TABLET PO SCH (20:22)
[2022-08-30] MEDS: ATORVASTATIN 40 MG TAB PO SCH (20:22)
[2022-08-30] MEDS: ALUMINUM/MAGNESIUM SUSP 30 ML UDC PO PRN (21:23)
[2022-08-30] MEDS: LANTUS PER UNIT CHARGE SQ SCH (21:29)
[2022-08-31] MEDS: LEVOTHYROXINE SODIUM 75 MCG TABLET PO SCH (05:55)
[2022-08-31 06:22] LABS: Creatinine Clr Calc Pharmacy 49.3 ml/min; Est GFR (Non-African American) 35.4 ml/min
[2022-08-31] MEDS: Albuterol HFA 8 GM Inhaler (Combivent Respimat P&T Subs) INH SCH ×3 (07:26→19:03)
[2022-08-31] MEDS: Ipratropium HFA Inhaler (Combivent Respimat P&T Subs) INH SCH ×3 (07:26→19:03)
--- NOTE | 2022-08-31 07:54 | Hospitalist Progress Note ---
Date of Service August 31, 2022 Assessment & Plan (1) Weakness: Plan: Prior to this admission patient had 4-month long stay at [facility] in [place] after sustaining a RIGHT femur fracture. She was there for prolonged stay due to extreme difficulty finding rehab placement. She was discharged to a nursing facility in [place] for a short time (~2 weeks) and then was discharged from there to home. Upon arrival home she could not ambulate/transfer into the house; collapsed to the ground; EMS advised her going to [facility]. Admitted here on 07/24/22. Weakness is 2nd to severe deconditioning due to prolonged immobilization/institutionalization. TSH 11/2021 wnl. TSH mildly high thus increased synthroid as below. B12 level wnl. 25-OH vit D level wnl. Cont PT/OT. Patient desires to go home patient states that her outpatient comp field case manager whose name is Dannielle and phone number is [phone] on monitor [employer] is trying to arrange for certain devices at home these would include a ramp, a lift chair, wheelchair accessible front door and interior doors, drop side commode, patient currently has electric wheelchair but cannot fit into her home due to the size of the dorsal lack of ramp. CM found a rehab that is accepting but due to his distance from home and inability of her family to travel this would in essence stranded her far from home once again as her previous experience was in the [place] area Discussed with daughter who will think things over and give us her opinion on Tuesday --> director of business services helping to arrange her get wider doors/shower stall Patient states she is hopeful to have things arranged possible for Tuesday this week? 08/31 Repeat labs 08/30 stable, awaiting placement vs home if able to arrange. CM awaiting to hear back from director of business services regarding home modifications Will provide rx for equipment for home in order to safely care for Viviana at home given current situation with rx for motorized wheelchair, ramp, lift chair and dropped side toilet. Added albuterol nebulizer for reported sob this am but stable on RA, got x 1 reported improvement and will continue. She states using this q4h at home. (2) Fracture of distal end of right femur: Plan: RIGHT. 2021. s/p admission to [facility] for such. treated nonoperatively there. Seen by Dr. Su, indicates that femur fx is not healed and will likely not heal further * Cont NWB status to RLE * Transfer bed to wheelchair or chair and bedside commode with assistance of a walker * Needs SNF w/ rehab in order to get her to safely transfer Cont oxycodone 10mg po q8h prn, but mostly just takes prior to PT Cont voltaren gel 4gm QID to R knee scheduled x-rays R knee 08/20/22 unchanged from prior films. 25-OH vit D level wnl this admission. (3) CKD (chronic kidney disease) stage 4, GFR 15-29 ml/min: Plan: Cr stable throughout this admission Cr 1.59 on 08/18/22 and 1.4 on 08/25 Cr baseline 1.4 to about 1.8 Cr stable 1.34 (4) Morbid obesity: Plan: BMI 56 needs weight loss, ?if able to consider Mounjaro vs Ozempic in future for additional weight loss/DM in future (5) Type 2 diabetes mellitus: Plan: HbA1c 8.9% pharmacy glycemic team managing her DM Control remains good-excellent at this time Had an insulin pump prior to admission - this is on hold Empagliflozin held current regimen - lantus BID + novolog SSI Increased lantus to 80u QAM, 75u QHS , continue SSI novolog BSgs improved Continued candy at bedside, non-compliance w/ carb consistent diet (6) Chronic respiratory failure: Plan: Stable. Probably predominantly OHS mediated Metal trach in place since 2007 Continue trach care , patient cleaning during exam 08/30 (7) HTN (hypertension): Plan: Controlled BP currently 136/66 Continue Imdur Cont metoprolol Cont aldactone Cont torsemide most recent BMP/mag wnl (08/18/22) - check about 1x/week for stability purposes --> repeat stable K 4.2, Mag 2.1 on 08/30 Repeat weekly while inpatient to ensure stability (8) Hypoventilation associated with obesity: Plan: Tracheostomy in place Follows with [facility] for her chronic trach (9) Chronic diastolic congestive heart failure: Plan: Compensated Cont diuretics Cont BB (10) Wound, breast: Plan: right seen by Wound Care nurse earlier in the stay continue dressing changes as per wound care team (11) Hypothyroidism (acquired): Plan: TSH was normal at 2.09 in 11/2021 TSH 08/18/22 mildly high Continue home levothyroxine but increased dose to 225mcg from 200mcg once daily -- continue at d/c repeat TSH 6 weeks around Sep 04, could be done inpatient if still here (12) GERD (gastroesophageal reflux disease): Plan: Continue Protonix 40mg BID (13) Dyslipidemia: Plan: Continue statin (14) Coronary artery disease: Plan: As above NO recent ischemic symptoms Cont asa, statin, BB, imdur Plan DVT prophylaxis -- Lovenox 40mg BID. Disposition-case management on consult to assist in dc planning. She is medically stable for discharge. Multiple referrals sent out and finally found one rehab that will accept but pt refusing to go there at this time due to the distance from her home/daughter. Daughter to think things over If daughter is agreeable, this may influence the patient's opinion Discussed care with daughter 08/27 Updated CM on need for rx/director of business services and they are to reach out today to see if arrangements truly able to be made --> they are waiting to hear back from director of business services 08/31 Possible if taking time for home modifications Viviana may be served at SNF and then home pending discussion with director of business services/CM Continued inpatient stay Admission and Anticipated Discharge Date Admission Date: July 25, 2022 Subjective eval this morning around 10;30 had some sob this morning, improved with nebulizer treatment as she does use this at home but hasn't gotten while inpatient. discussed ordered q6h prn currently but she takes q4h at home. discussed to continue for now/monitor as also getting HFA Discussed to alert nursing if any worsening of symptoms but currently comfortable. Adjustments to insulin, BSGs stable. CM waiting to hear back from director of business services regarding possibly getting patient home. Review of Systems Review of Systems: All systems reviewed & are unremarkable except as noted in HPI & below Physical Exam Physical Exam: General: WD, morbidly obese female sitting up in bed, NAD, candy on bedside table HEENT; head normocephalic, atraumatic, mmm, metal trach Resp: diminished in bases, coarse breath sounds, no wheezing, no distress, on room air 94% CV: RRR, no m/r/g, no pitting edema GI: +BS, soft, nontender MSK/Neuro: generalized weakness b/l LE, NVI, pulses palpable Psych: AOx3, cooperative Results & Data Results & Data ([facility]) Vital Signs (Past 12 Hours) Vital Signs Temp Pulse Resp BP Pulse Ox O2 Del Method O2 Flow Rate 08/31/22 07:26 74 18 93 Room Air 08/30/22 22:00 82 21 94 Trach Collar 6 08/30/22 20:49 Room Air 08/30/22 20:33 36.4 C L 84 20 123/76 91 Room Air FiO2 08/31/22 07:26 08/30/22 22:00 28 08/30/22 20:49 08/30/22 20:33 PG Care Time/CCT Total # of Minutes Spent Total Time Spent with Patient: Total time spent is greater than 50% in coordination of care (as documented) at patient's floor/unit and/or counseling patient: Coding Level of Care Code 29031 Subseq Hosp Care Lvl 2 Diagnoses Weakness R53.1 Fracture of distal end of right femur S72.401A CKD (chronic kidney disease) stage 4, GFR 15-29 ml/min N18.4 Morbid obesity E66.01 Type 2 diabetes mellitus E11.9 Chronic respiratory failure J96.10 Respiratory failure complication: unspecified whether with hypoxia or hypercapnia HTN (hypertension) I10 Hypoventilation associated with obesity E66.2 Chronic diastolic congestive heart failure I50.32 Wound, breast S21.009A Hypothyroidism (acquired) E03.9 GERD (gastroesophageal reflux disease) K21.9 Dyslipidemia E78.5 Coronary artery disease I25.10 (1) Chronic respiratory failure Respiratory failure complication: unspecified whether with hypoxia or hypercapnia Qualified Code(s): J96.10 - Chronic respiratory failure, unspecified whether with hypoxia or hypercapnia
[2022-08-31] MEDS: ALBUTEROL 0.083% NEBU SOLN 3 ML VIAL NEB PRN ×2 (08:28→19:02)
[2022-08-31] MEDS: INSULIN ASPART PER UNIT SC SCH ×4 (08:45→21:45)
[2022-08-31] MEDS: ASPIRIN 81 MG ECTAB PO SCH (08:46)
[2022-08-31] MEDS: LANTUS PER UNIT CHARGE SQ SCH ×2 (08:46→21:45)
[2022-08-31] MEDS: TORSEMIDE 10 MG TAB PO SCH ×2 (08:46→14:17)
[2022-08-31] MEDS: METOPROLOL TARTRATE 25 MG TAB PO SCH ×2 (08:47→20:42)
[2022-08-31] MEDS: ISOSORBIDE MONO EXTENDED REL 30 MG TABCR PO SCH (08:47)
[2022-08-31] MEDS: ADVANCED PROBIOTIC 1250 MG CAPSULE PO SCH (08:47)
[2022-08-31] MEDS: DOCUSATE SODIUM 100 MG CAP PO SCH ×2 (08:47→20:43)
[2022-08-31] MEDS: FOLIC ACID 1 MG TAB PO SCH (08:47)
[2022-08-31] MEDS: POTASSIUM CHLORIDE CRTAB 20 MEQ TABCR PO SCH ×2 (08:47→20:42)
[2022-08-31] MEDS: buPROPion SR 100 MG TABCR PO SCH ×2 (08:47→20:42)
[2022-08-31] MEDS: PANTOprazole 40 MG TAB PO SCH ×2 (08:47→20:43)
[2022-08-31] MEDS: ACETAMINOPHEN 500 MG TAB PO SCH ×3 (08:48→20:44)
[2022-08-31] MEDS: TOPIRAMATE 100 MG TAB PO SCH ×2 (08:48→20:43)
[2022-08-31] MEDS: MULTIVITAMIN TAB PO SCH (08:48)
[2022-08-31] MEDS: SPIRONOLACTONE 25 MG TAB PO SCH (08:48)
[2022-08-31] MEDS: DICLOFENAC SOD 1% GEL 100 GM TUBE EXT SCH ×4 (08:48→20:44)
[2022-08-31] MEDS: ENOXAPARIN INJ 40 MG/0.4 ML SYR SQ SCH ×2 (08:54→20:41)
[2022-08-31] MEDS: oxyCODONE HCL IR 5 MG TAB (IMMEDIATE RELEASE) PO PRN (12:54)
[2022-08-31] MEDS: MELATONIN 3 MG TAB PO SCH (20:42)
[2022-08-31] MEDS: ATORVASTATIN 40 MG TAB PO SCH (20:42)
[2022-08-31] MEDS: MONTELUKAST SODIUM 10 MG TABLET PO SCH (20:43)
[2022-08-31] MEDS: ALUMINUM/MAGNESIUM SUSP 30 ML UDC PO PRN (21:48)
[2022-09-01] MEDS: LEVOTHYROXINE SODIUM 75 MCG TABLET PO SCH (05:39)
[2022-09-01] MEDS: Ipratropium HFA Inhaler (Combivent Respimat P&T Subs) INH SCH ×5 (06:57→19:19)
[2022-09-01] MEDS: Albuterol HFA 8 GM Inhaler (Combivent Respimat P&T Subs) INH SCH ×5 (06:57→19:19)
[2022-09-01] MEDS: ALBUTEROL 0.083% NEBU SOLN 3 ML VIAL NEB PRN ×2 (07:22→19:19)
[2022-09-01] MEDS: ACETAMINOPHEN 500 MG TAB PO SCH ×3 (08:11→20:47)
[2022-09-01] MEDS: TORSEMIDE 10 MG TAB PO SCH ×2 (08:11→13:56)
[2022-09-01] MEDS: POTASSIUM CHLORIDE CRTAB 20 MEQ TABCR PO SCH ×2 (08:12→20:46)
[2022-09-01] MEDS: MULTIVITAMIN TAB PO SCH (08:12)
[2022-09-01] MEDS: buPROPion SR 100 MG TABCR PO SCH ×2 (08:12→20:48)
[2022-09-01] MEDS: FOLIC ACID 1 MG TAB PO SCH (08:12)
[2022-09-01] MEDS: METOPROLOL TARTRATE 25 MG TAB PO SCH ×2 (08:12→20:46)
[2022-09-01] MEDS: TOPIRAMATE 100 MG TAB PO SCH ×2 (08:13→20:47)
[2022-09-01] MEDS: DOCUSATE SODIUM 100 MG CAP PO SCH ×2 (08:13→20:47)
[2022-09-01] MEDS: ADVANCED PROBIOTIC 1250 MG CAPSULE PO SCH (08:13)
[2022-09-01] MEDS: ASPIRIN 81 MG ECTAB PO SCH (08:13)
[2022-09-01] MEDS: PANTOprazole 40 MG TAB PO SCH ×2 (08:13→20:48)
[2022-09-01] MEDS: SPIRONOLACTONE 25 MG TAB PO SCH (08:13)
[2022-09-01] MEDS: ISOSORBIDE MONO EXTENDED REL 30 MG TABCR PO SCH (08:13)
[2022-09-01] MEDS: DICLOFENAC SOD 1% GEL 100 GM TUBE EXT SCH ×4 (08:14→20:49)
[2022-09-01] MEDS: ENOXAPARIN INJ 40 MG/0.4 ML SYR SQ SCH ×2 (08:42→20:48)
[2022-09-01] MEDS: INSULIN ASPART PER UNIT SC SCH ×4 (08:42→22:09)
[2022-09-01] MEDS: LANTUS PER UNIT CHARGE SQ SCH ×2 (08:43→22:09)
--- NOTE | 2022-09-01 10:24 | Hospitalist Progress Note ---
Date of Service September 01, 2022 Assessment & Plan (1) Weakness: Plan: Weakness is 2nd to severe deconditioning due to prolonged immobilization/institutionalization. Cont PT/OT. Patient desires to go home patient states that her outpatient case managers is trying to arrange for certain devices at home these would include a ramp, a lift chair, wheelchair accessible front door and interior doors, drop side commode, patient currently has electric wheelchair but cannot fit into her home due to the size of the dorsal lack of ramp. CM found a rehab that is accepting but due to his distance from home and inability of her family to travel she is refusing. sales project coordinator helping to arrange her get wider doors/shower stall. Per case management note, dietary service aide hoping to have REQUEST for home modifications submitted this week. The improvements WILL NOT be done this week. CM awaiting to hear back from dietary service aide regarding home modifications. Will provide rx for equipment for home in order to safely care for Viviana at home given current situation with rx for motorized wheelchair, ramp, lift chair and dropped side toilet. Added albuterol nebulizer for reported sob this am but stable on RA, got x 1 reported improvement and will continue. She states using this q4h at home. (2) Fracture of distal end of right femur: Plan: Seen by Dr. Su, indicates that femur fx is not healed and will likely not heal further * Cont NWB status to RLE * Transfer bed to wheelchair or chair and bedside commode with assistance of a walker * Needs SNF w/ rehab in order to get her to safely transfer Cont oxycodone 10mg po q8h prn, but mostly just takes prior to PT Cont voltaren gel 4gm QID to R knee scheduled (3) CKD (chronic kidney disease) stage 4, GFR 15-29 ml/min: Plan: Cr stable throughout this admission Cr baseline 1.4 to about 1.8 (4) Morbid obesity: Plan: BMI 56 needs weight loss, ?if able to consider Mounjaro vs Ozempic in future for additional weight loss/DM in future (5) Type 2 diabetes mellitus: Plan: HbA1c 8.9% pharmacy glycemic team managing her DM Had an insulin pump prior to admission - this is on hold Empagliflozin held Currently on lantus to 80u QAM, 75u QHS , continue SSI novolog Continued candy at bedside, non-compliance w/ carb consistent diet (6) Chronic respiratory failure: Plan: Stable. Probably predominantly OHS mediated Metal trach in place since 2007 Follows with [facility] (7) HTN (hypertension): Plan: HTN/CAD/Chronic diastolic CHF- Controlled BP currently 136/66 CHF compensated Continue Imdur, metoprolol, aldactone and torsemide (8) Wound, breast: Plan: right seen by Wound Care nurse earlier in the stay continue dressing changes as per wound care team (9) Hypothyroidism (acquired): Plan: TSH 08/18/22 mildly high Increased Levothyroxine dose to 225mcg from 200mcg once daily -- continue at d/c repeat TSH 6 weeks around Sep 04, could be done inpatient if still here Plan DVT prophylaxis -- Lovenox 40mg BID. Disposition-case management on consult to assist in dc planning. She is medically stable for discharge. Multiple referrals sent out and finally found one rehab that will accept but pt refusing to go there at this time due to the distance from her home/daughter. Daughter to consider and if agreeable, this may influence the patient's opinion Discussed care with daughter 08/27 Updated CM on need for rx/dietary service aide and they are to reach out today to see if arrangements truly able to be made --> they are waiting to hear back from dietary service aide 08/31 Possible if taking time for home modifications Viviana may be served at SNF short term and then home pending discussion with dietary service aide/CM. Referral faxed to [facility] as they now have an [employer] contract and they are reviewing. Continued inpatient stay Admission and Anticipated Discharge Date Admission Date: July 25, 2022 Subjective Patient seen on daily rounds this morning. She continues to wait for placement at SNF placement versus now some discussion about returning home, working with a dietary service aide. She presently denies shortness of breath, cp, or uncontrolled leg pain. She has no other complaints/concerns at this time. Review of Systems Review of Systems: All systems reviewed and are unremarkable except as noted in HPI and below. Denies fever, chills, fatigue, headache, nasal congestion, sore throat, cough, chest pain, shortness of breath, palpitations, orthopnea, PND, abdominal pain, n/v/d, constipation, dysuria, hematuria, frequency, back pain, joint pain or swelling, easy bruising or bleeding, skin lesions or rashes. Physical Exam Physical Exam: GENERAL: 67 yo morbidly obese WF. NAD. LUNGS: Clear to auscultation bilaterally. No W/R/R. metal trach noted. CARDIOVASCULAR: Regular rate and rhythm. ABDOMEN: Soft, non-tender and non-distended. BS normoactive x 4 quad. EXTREMITIES: No edema. Non-tender. Peripheral pulses +2/4. NEUROLOGIC: A&O x3. Nonfocal PSYCHIATRIC: Cooperative. Appropriate mood and affect. SKIN: Warm, dry, intact. No rashes or lesions. Results & Data Results & Data ([facility]) Vital Signs (Past 12 Hours) Vital Signs Temp Pulse Resp BP Pulse Ox O2 Del Method O2 Flow Rate 09/01/22 08:35 Room Air 09/01/22 08:00 36.5 C 75 18 147/72 H 94 Room Air 09/01/22 07:31 70 20 94 Room Air 09/01/22 01:24 Room Air 08/31/22 23:29 82 22 95 Trach Collar 6 FiO2 09/01/22 08:35 09/01/22 08:00 09/01/22 07:31 09/01/22 01:24 08/31/22 23:29 28 PG Care Time/CCT Total # of Minutes Spent Total Time Spent with Patient: Total time spent is greater than 50% in coordination of care (as documented) at patient's floor/unit and/or counseling patient: Coding Level of Care Code 20327 Subseq Hosp Care Lvl 1 Diagnoses Weakness R53.1 Fracture of distal end of right femur S72.401A CKD (chronic kidney disease) stage 4, GFR 15-29 ml/min N18.4 Morbid obesity E66.01 Type 2 diabetes mellitus E11.9 Chronic respiratory failure J96.10 Respiratory failure complication: unspecified whether with hypoxia or hypercapnia HTN (hypertension) I10 Wound, breast S21.009A Hypothyroidism (acquired) E03.9 (1) Chronic respiratory failure Respiratory failure complication: unspecified whether with hypoxia or hypercapnia Qualified Code(s): J96.10 - Chronic respiratory failure, unspecified whether with hypoxia or hypercapnia
[2022-09-01] MEDS: oxyCODONE HCL IR 5 MG TAB (IMMEDIATE RELEASE) PO PRN ×2 (13:02→22:10)
[2022-09-01] MEDS: MELATONIN 3 MG TAB PO SCH (20:47)
[2022-09-01] MEDS: ATORVASTATIN 40 MG TAB PO SCH (20:47)
[2022-09-01] MEDS: MONTELUKAST SODIUM 10 MG TABLET PO SCH (20:47)
[2022-09-01] MEDS: ALUMINUM/MAGNESIUM SUSP 30 ML UDC PO PRN (22:10)
[2022-09-02] MEDS: LEVOTHYROXINE SODIUM 75 MCG TABLET PO SCH (06:33)
[2022-09-02] MEDS: TORSEMIDE 10 MG TAB PO SCH ×2 (06:33→14:48)
[2022-09-02] MEDS: Albuterol HFA 8 GM Inhaler (Combivent Respimat P&T Subs) INH SCH ×4 (07:13→19:59)
[2022-09-02] MEDS: Ipratropium HFA Inhaler (Combivent Respimat P&T Subs) INH SCH ×4 (07:13→19:59)
[2022-09-02] MEDS: INSULIN ASPART PER UNIT SC SCH ×4 (09:01→20:40)
[2022-09-02] MEDS: LANTUS PER UNIT CHARGE SQ SCH ×2 (09:01→20:39)
[2022-09-02] MEDS: DICLOFENAC SOD 1% GEL 100 GM TUBE EXT SCH ×4 (09:02→20:22)
[2022-09-02] MEDS: buPROPion SR 100 MG TABCR PO SCH ×2 (09:03→20:19)
[2022-09-02] MEDS: FOLIC ACID 1 MG TAB PO SCH (09:03)
[2022-09-02] MEDS: SPIRONOLACTONE 25 MG TAB PO SCH (09:03)
[2022-09-02] MEDS: ADVANCED PROBIOTIC 1250 MG CAPSULE PO SCH (09:03)
[2022-09-02] MEDS: DOCUSATE SODIUM 100 MG CAP PO SCH ×2 (09:03→20:23)
[2022-09-02] MEDS: ASPIRIN 81 MG ECTAB PO SCH (09:03)
[2022-09-02] MEDS: MULTIVITAMIN TAB PO SCH (09:04)
[2022-09-02] MEDS: TOPIRAMATE 100 MG TAB PO SCH ×2 (09:04→20:25)
[2022-09-02] MEDS: METOPROLOL TARTRATE 25 MG TAB PO SCH ×2 (09:04→20:20)
[2022-09-02] MEDS: ACETAMINOPHEN 500 MG TAB PO SCH ×3 (09:04→20:18)
[2022-09-02] MEDS: ISOSORBIDE MONO EXTENDED REL 30 MG TABCR PO SCH (09:04)
[2022-09-02] MEDS: POTASSIUM CHLORIDE CRTAB 20 MEQ TABCR PO SCH ×2 (09:04→20:26)
[2022-09-02] MEDS: PANTOprazole 40 MG TAB PO SCH ×2 (09:05→20:25)
[2022-09-02] MEDS: ENOXAPARIN INJ 40 MG/0.4 ML SYR SQ SCH ×2 (09:05→20:23)
--- NOTE | 2022-09-02 10:05 | Hospitalist Progress Note ---
Date of Service September 02, 2022 Assessment & Plan (1) Weakness: Plan: Weakness is 2nd to severe deconditioning due to prolonged immobilization/institutionalization. Cont PT/OT. Patient desires to go home patient states that her outpatient upper caser is trying to arrange for certain devices at home these would include a ramp, a lift chair, wheelchair accessible front door and interior doors, drop side commode, patient currently has electric wheelchair but cannot fit into her home due to the size of the dorsal lack of ramp. CM found a rehab that is accepting but due to his distance from home and inability of her family to travel she is refusing. digital content coordinator helping to arrange her get wider doors/shower stall. Per case management note, automotive fuel injection servicer hoping to have REQUEST for home modifications submitted this week. The improvements WILL NOT be done this week. CM awaiting to hear back from automotive fuel injection servicer regarding home modifications. Will provide rx for equipment for home in order to safely care for pt at home given current situation with rx for motorized wheelchair, ramp, lift chair and dropped side toilet. Added albuterol nebulizer q4h as she uses at home. (2) Fracture of distal end of right femur: Plan: Seen by Dr. Su, indicates that femur fx is not healed and will likely not heal further * Cont NWB status to RLE * Transfer bed to wheelchair or chair and bedside commode with assistance of a walker * Needs SNF w/ rehab in order to get her to safely transfer Cont oxycodone 10mg po q8h prn, but mostly just takes prior to PT Cont voltaren gel 4gm QID to R knee scheduled (3) CKD (chronic kidney disease) stage 4, GFR 15-29 ml/min: Plan: Cr stable throughout this admission Cr baseline 1.4 to about 1.8 (4) Morbid obesity: Plan: BMI 56 needs weight loss, ?if able to consider Mounjaro vs Ozempic in future for additional weight loss/DM in future (5) Type 2 diabetes mellitus: Plan: HbA1c 8.9% pharmacy glycemic team managing her DM Had an insulin pump prior to admission - this is on hold Empagliflozin held Currently on lantus to 80u QAM, 75u QHS , continue SSI novolog Continued candy at bedside, non-compliance w/ carb consistent diet (6) Chronic respiratory failure: Plan: Stable. Probably predominantly OHS mediated Metal trach in place since 2007 Follows with [facility] (7) HTN (hypertension): Plan: HTN/CAD/Chronic diastolic CHF- Controlled BP currently 136/66 CHF compensated Continue Imdur, metoprolol, aldactone and torsemide (8) Wound, breast: Plan: right seen by Wound Care nurse earlier in the stay continue dressing changes as per wound care team (9) Hypothyroidism (acquired): Plan: TSH 08/18/22 mildly high Increased Levothyroxine dose to 225mcg from 200mcg once daily -- continue at d/c repeat TSH 6 weeks around Sep 04, could be done inpatient if still here Plan DVT prophylaxis -- Lovenox 40mg BID. Disposition-case management on consult to assist in dc planning. She is medically stable for discharge. Multiple referrals sent out and finally found one rehab that will accept but pt refusing to go there at this time due to the distance from her home/daughter. Daughter to consider and if agreeable, this may influence the patient's opinion Discussed care with daughter 08/27 Updated CM on need for rx/automotive fuel injection servicer and they are to reach out today to see if arrangements truly able to be made Possible if taking time for home modifications pt may be served at SNF short term and then home pending discussion with automotive fuel injection servicer/CM. Referral faxed to [facility] as they now have an [employer] contract and they are reviewing. Continued inpatient stay Admission and Anticipated Discharge Date Admission Date: July 25, 2022 Subjective Patient was seen on daily rounds this morning. She is resting in bed, reports that she is "very upset" that overnight two nurses "demanded" that she get up and use the bedside commode and she reportedly did not want to as she was tired from going back and forth from the bed to the chair. She states that she "does not want pushed." She apparently spoke with the RN supervisor billposting overnight regarding her concerns. This morning, she reports that her leg pain is "so-so." She denies feeling actively short of breath or having cp. Review of Systems Review of Systems: All systems reviewed and are unremarkable except as noted in HPI and below. Denies fever, chills, fatigue, headache, nasal congestion, sore throat, cough, chest pain, shortness of breath, palpitations, orthopnea, PND, abdominal pain, n/v/d, constipation, dysuria, hematuria, frequency, back pain, joint pain or swelling, easy bruising or bleeding, skin lesions or rashes. Physical Exam Physical Exam: GENERAL: 67 yo morbidly obese WF. NAD. LUNGS: Clear to auscultation bilaterally. No W/R/R. metal trach noted. CARDIOVASCULAR: Regular rate and rhythm. ABDOMEN: Soft, non-tender and non-distended. BS normoactive x 4 quad. EXTREMITIES: trace edema. Non-tender. Peripheral pulses +2/4. NEUROLOGIC: A&O x3. Nonfocal PSYCHIATRIC: Cooperative. Appropriate mood and affect. SKIN: Warm, dry, intact. No rashes or lesions. Results & Data Results & Data ([facility]) Vital Signs (Past 12 Hours) Vital Signs Temp Pulse Pulse Resp BP Pulse Ox O2 Del Method 09/02/22 07:21 72 19 95 Room Air 09/02/22 07:10 36.4 C L 73 17 122/77 93 Room Air 09/01/22 23:32 80 22 95 Trach Collar O2 Flow Rate FiO2 09/02/22 07:21 21 09/02/22 07:10 09/01/22 23:32 6 28 PG Care Time/CCT Total # of Minutes Spent Total Time Spent with Patient: Total time spent is greater than 50% in coordination of care (as documented) at patient's floor/unit and/or counseling patient: Coding Level of Care Code 13093 Subseq Hosp Care Lvl 1 Diagnoses Weakness R53.1 Fracture of distal end of right femur S72.401A CKD (chronic kidney disease) stage 4, GFR 15-29 ml/min N18.4 Morbid obesity E66.01 Type 2 diabetes mellitus E11.9 Chronic respiratory failure J96.10 Respiratory failure complication: unspecified whether with hypoxia or hypercapnia HTN (hypertension) I10 Wound, breast S21.009A Hypothyroidism (acquired) E03.9 (1) Chronic respiratory failure Respiratory failure complication: unspecified whether with hypoxia or hyp ercapnia Qualified Code(s): J96.10 - Chronic respiratory failure, unspecified whether with hypoxia or hypercapnia
--- NOTE | 2022-09-02 11:32 | Pharmacy Report ---
Pharmacy Glycemic Short Note 2 - Date of Service September 02, 2022 - Glycemic Short BSG Results (Last 24 hours): 09/01/22 09/01/22 09/01/22 07:57 11:41 16:55 POC Glucose 149 H 161 H 246 H 09/01/22 09/02/22 20:48 07:58 POC Glucose 176 H 95 OUTPATIENT ANTIDIABETIC REGIMEN: * Jardiance 25mg PO daily * Patient on insulin pump in the past (Basal rate 6 units/hr, bolus with 50 units TID meals -- approx 200 units per day) * HbA1c = 8.9% (07/25/22) ASSESSMENT: 09/02: * Whit received 373 units of insulin yesterday (160 units basal, 213 units bolus). BSGs are acceptable. * Fasting BSG is trending downward. If fasting is below 100 mg/dL x 2 days, will decrease basal insulin. * No change to novolog orders today 08/30: * BSGs had been relatively well-controlled over past several days, however uptrend noted yesterday >250 mg/dL x 2 * Improved fasting BSG, but will increase AM basal with aim of helping high BSGs throughout the day * Continue current Novolog parameters, consider tightening CF tomorrow if still elevated 08/25: * Insulin needs continue to be very high (364 units of insulin yesterday), Lantus increased and CR tightened yesterday * BSGs reasonably controlled yesterday w/ fasting BSG of 155 mg/dL this morning * Continue current regimen, do not anticipate changes to insulin regimen today 08/23: * Insulin needs continue to be very high (285 units of insulin yesterday) * BSGs reasonably controlled yesterday w/ improved fasting BSG of 129 mg/dL this morning * Had been titrating up basal insulin over past several days, given improvement will continue current regimen * Do not anticipate changes to insulin regimen today Background: 67 year old female admitted w/ CP and SOB, morbid obesity, only on PO med for DM, but was previously on high dose insulin via pump. PLAN FOR INPATIENT GLYCEMIC CONTROL: * Hold outpatient oral diabetes medications * Basal insulin * Lantus 80 units SC BID * Bolus insulin * NovoLog per scale ACHS or Q6hrs while NPO * Goal Range: Low 110 mg/dL - High 140 mg/dL * Correction Factor: 5 mg/dL/unit * Nutritional / Prandial insulin per carb ratio of 1 unit per 1 grams CHO consumed
[2022-09-02] MEDS: oxyCODONE HCL IR 5 MG TAB (IMMEDIATE RELEASE) PO PRN ×2 (12:58→21:12)
[2022-09-02] MEDS: ALBUTEROL 0.083% NEBU SOLN 3 ML VIAL NEB PRN (19:56)
[2022-09-02] MEDS: MONTELUKAST SODIUM 10 MG TABLET PO SCH (20:19)
[2022-09-02] MEDS: MELATONIN 3 MG TAB PO SCH (20:21)
[2022-09-02] MEDS: ATORVASTATIN 40 MG TAB PO SCH (20:22)
[2022-09-02] MEDS: ALUMINUM/MAGNESIUM SUSP 30 ML UDC PO PRN (22:46)
[2022-09-03 06:07] LABS: Creatinine Clr Calc Pharmacy 52.5 ml/min; Est GFR (African American) 44.1 ml/min; Est GFR (Non-African American) 38.1 ml/min
[2022-09-03] MEDS: LEVOTHYROXINE SODIUM 75 MCG TABLET PO SCH (06:13)
[2022-09-03] MEDS: TORSEMIDE 10 MG TAB PO SCH ×2 (06:14→15:14)
[2022-09-03] MEDS: Albuterol HFA 8 GM Inhaler (Combivent Respimat P&T Subs) INH SCH ×4 (09:06→20:07)
[2022-09-03] MEDS: Ipratropium HFA Inhaler (Combivent Respimat P&T Subs) INH SCH ×4 (09:07→20:07)
[2022-09-03] MEDS: PANTOprazole 40 MG TAB PO SCH ×2 (09:14→21:45)
[2022-09-03] MEDS: DOCUSATE SODIUM 100 MG CAP PO SCH ×2 (09:14→21:42)
[2022-09-03] MEDS: ASPIRIN 81 MG ECTAB PO SCH (09:15)
[2022-09-03] MEDS: MULTIVITAMIN TAB PO SCH (09:15)
[2022-09-03] MEDS: SPIRONOLACTONE 25 MG TAB PO SCH (09:15)
[2022-09-03] MEDS: ACETAMINOPHEN 500 MG TAB PO SCH ×3 (09:15→21:40)
[2022-09-03] MEDS: TOPIRAMATE 100 MG TAB PO SCH ×2 (09:15→21:46)
[2022-09-03] MEDS: ISOSORBIDE MONO EXTENDED REL 30 MG TABCR PO SCH (09:16)
[2022-09-03] MEDS: FOLIC ACID 1 MG TAB PO SCH (09:16)
[2022-09-03] MEDS: METOPROLOL TARTRATE 25 MG TAB PO SCH ×2 (09:16→21:44)
[2022-09-03] MEDS: POTASSIUM CHLORIDE CRTAB 20 MEQ TABCR PO SCH ×2 (09:17→21:45)
[2022-09-03] MEDS: buPROPion SR 100 MG TABCR PO SCH ×2 (09:17→21:41)
[2022-09-03] MEDS: ADVANCED PROBIOTIC 1250 MG CAPSULE PO SCH (09:17)
[2022-09-03] MEDS: DICLOFENAC SOD 1% GEL 100 GM TUBE EXT SCH ×4 (09:17→21:41)
[2022-09-03] MEDS: ENOXAPARIN INJ 40 MG/0.4 ML SYR SQ SCH ×2 (09:18→21:42)
[2022-09-03] MEDS: INSULIN ASPART PER UNIT SC SCH ×4 (09:21→21:43)
[2022-09-03] MEDS: LANTUS PER UNIT CHARGE SQ SCH ×2 (09:21→21:43)
--- NOTE | 2022-09-03 11:39 | Hospitalist Progress Note ---
Date of Service September 03, 2022 Assessment & Plan (1) Weakness: Plan: Weakness is 2nd to severe deconditioning due to prolonged immobilization/institutionalization. Cont PT/OT. Patient desires to go home patient states that her outpatient director case management is trying to arrange for certain devices at home these would include a ramp, a lift chair, wheelchair accessible front door and interior doors, drop side commode, patient currently has electric wheelchair but cannot fit into her home due to the size of the dorsal lack of ramp. CM found a rehab that is accepting but due to his distance from home and inability of her family to travel she is refusing. helper coordinator helping to arrange her get wider doors/shower stall. Per case management note, clerk telegraph service hoping to have REQUEST for home modifications submitted this week. The improvements WILL NOT be done this week. CM awaiting to hear back from clerk telegraph service regarding home modifications. Will provide rx for equipment for home in order to safely care for pt at home given current situation with rx for motorized wheelchair, ramp, lift chair and dropped side toilet. Added albuterol nebulizer q4h as she uses at home. (2) Fracture of distal end of right femur: Plan: Seen by Dr. Su, indicates that femur fx is not healed and will likely not heal further * Cont NWB status to RLE * Transfer bed to wheelchair or chair and bedside commode with assistance of a walker * Needs SNF w/ rehab in order to get her to safely transfer Cont oxycodone 10mg po q8h prn, but mostly just takes prior to PT Cont voltaren gel 4gm QID to R knee scheduled (3) CKD (chronic kidney disease) stage 4, GFR 15-29 ml/min: Plan: Cr stable throughout this admission Cr baseline 1.4 to about 1.8 (4) Morbid obesity: Plan: BMI 56 needs weight loss, ?if able to consider Mounjaro vs Ozempic in future for additional weight loss/DM in future (5) Type 2 diabetes mellitus: Plan: HbA1c 8.9% pharmacy glycemic team managing her DM Had an insulin pump prior to admission - this is on hold Empagliflozin held Currently on lantus to 80u QAM, 75u QHS , continue SSI novolog Continued candy at bedside, non-compliance w/ carb consistent diet (6) Chronic respiratory failure: Plan: Stable. Probably predominantly OHS mediated Metal trach in place since 2007 - not interested in having this exchanged Follows with [facility] (7) HTN (hypertension): Plan: HTN/CAD/Chronic diastolic CHF- Controlled BP currently 136/66 CHF compensated Continue Imdur, metoprolol, aldactone and torsemide (8) Wound, breast: Plan: right seen by Wound Care nurse earlier in the stay continue dressing changes as per wound care team (9) Hypothyroidism (acquired): Plan: TSH 08/18/22 mildly high Increased Levothyroxine dose to 225mcg from 200mcg once daily -- continue at d/c repeat TSH 6 weeks around Sep 04, could be done inpatient if still here Plan DVT prophylaxis -- Lovenox 40mg BID. Disposition-case management on consult to assist in dc planning. She is medically stable for discharge. Multiple referrals sent out and finally found one rehab that will accept but pt refusing to go there at this time due to the distance from her home/daughter. Daughter to consider and if agreeable, this may influence the patient's opinion Discussed care with daughter 08/27 Updated CM on need for rx/clerk telegraph service and they are to reach out today to see if arrangements truly able to be made Possible if taking time for home modifications pt may be served at SNF short term and then home pending discussion with clerk telegraph service/CM. Referral faxed to [facility] as they now have an [employer] contract and they are reviewing. Continued inpatient stay Admission and Anticipated Discharge Date Admission Date: July 25, 2022 Subjective Patient seen on daily rounds this morning. No new complaints/concerns at this time. Review of Systems Review of Systems: All systems reviewed and are unremarkable except as noted in HPI and below. Denies fever, chills, fatigue, headache, nasal congestion, sore throat, cough, chest pain, shortness of breath, palpitations, orthopnea, PND, abdominal pain, n/v/d, constipation, dysuria, hematuria, frequency, back pain, easy bruising or bleeding, skin lesions or rashes. Physical Exam Physical Exam: GENERAL: 67 yo morbidly obese WF. NAD. LUNGS: Clear to auscultation bilaterally. No W/R/R. metal trach noted. CARDIOVASCULAR: Regular rate and rhythm. ABDOMEN: Soft, non-tender and non-distended. BS normoactive x 4 quad. EXTREMITIES: trace edema. Non-tender. Peripheral pulses +2/4. NEUROLOGIC: A&O x3. Nonfocal PSYCHIATRIC: Cooperative. Appropriate mood and affect. SKIN: Warm, dry, intact. No rashes or lesions. Results & Data Results & Data ([facility]) Vital Signs (Past 12 Hours) Vital Signs Temp Pulse Resp BP Pulse Ox O2 Del Method 09/03/22 09:19 89 20 93 Room Air 09/03/22 07:47 36.5 C 75 18 121/80 92 Room Air PG Care Time/CCT Total # of Minutes Spent Total Time Spent with Patient: Total time spent is greater than 50% in coordination of care (as documented) at patient's floor/unit and/or counseling patient: Coding Level of Care Code 77517 Subseq Hosp Care Lvl 1 Diagnoses Weakness R53.1 Fracture of distal end of right femur S72.401A CKD (chronic kidney disease) stage 4, GFR 15-29 ml/min N18.4 Morbid obesity E66.01 Type 2 diabetes mellitus E11.9 Chronic respiratory failure J96.10 Respiratory failure complication: unspecified whether with hypoxia or hypercapnia HTN (hypertension) I10 Wound, breast S21.009A Hypothyroidism (acquired) E03.9 (1) Chronic respiratory failure Respiratory failure complication: unspecified whether with hypoxia or hypercapnia Qualified Code(s): J96.10 - Chronic respiratory failure, unspecified whether with hypoxia or hypercapnia
[2022-09-03] MEDS: ATORVASTATIN 40 MG TAB PO SCH (21:41)
[2022-09-03] MEDS: MELATONIN 3 MG TAB PO SCH (21:43)
[2022-09-03] MEDS: MONTELUKAST SODIUM 10 MG TABLET PO SCH (21:45)
[2022-09-03] MEDS: ALUMINUM/MAGNESIUM SUSP 30 ML UDC PO PRN (22:33)
[2022-09-04] MEDS: LEVOTHYROXINE SODIUM 75 MCG TABLET PO SCH (06:02)
[2022-09-04] MEDS: TORSEMIDE 10 MG TAB PO SCH ×2 (06:03→13:42)
[2022-09-04] MEDS: Albuterol HFA 8 GM Inhaler (Combivent Respimat P&T Subs) INH SCH ×4 (07:46→19:32)
[2022-09-04] MEDS: Ipratropium HFA Inhaler (Combivent Respimat P&T Subs) INH SCH ×4 (07:47→19:31)
[2022-09-04 08:22] LABS: Thyroid Stimulating Hormone 6.327 uIu/ml (0.300-4.500)
[2022-09-04] MEDS: MULTIVITAMIN TAB PO SCH (08:27)
[2022-09-04] MEDS: SPIRONOLACTONE 25 MG TAB PO SCH (08:27)
[2022-09-04] MEDS: TOPIRAMATE 100 MG TAB PO SCH ×2 (08:27→20:32)
[2022-09-04] MEDS: PANTOprazole 40 MG TAB PO SCH ×2 (08:27→20:29)
[2022-09-04] MEDS: METOPROLOL TARTRATE 25 MG TAB PO SCH ×2 (08:27→20:31)
[2022-09-04] MEDS: POTASSIUM CHLORIDE CRTAB 20 MEQ TABCR PO SCH ×2 (08:27→20:31)
[2022-09-04] MEDS: ISOSORBIDE MONO EXTENDED REL 30 MG TABCR PO SCH (08:28)
[2022-09-04] MEDS: buPROPion SR 100 MG TABCR PO SCH ×2 (08:28→20:32)
[2022-09-04] MEDS: FOLIC ACID 1 MG TAB PO SCH (08:28)
[2022-09-04] MEDS: ADVANCED PROBIOTIC 1250 MG CAPSULE PO SCH (08:28)
[2022-09-04] MEDS: DOCUSATE SODIUM 100 MG CAP PO SCH (08:28)
[2022-09-04] MEDS: ASPIRIN 81 MG ECTAB PO SCH (08:28)
[2022-09-04] MEDS: ACETAMINOPHEN 500 MG TAB PO SCH ×3 (08:29→20:30)
[2022-09-04] MEDS: INSULIN ASPART PER UNIT SC SCH ×4 (08:57→20:43)
[2022-09-04] MEDS: LANTUS PER UNIT CHARGE SQ SCH ×2 (09:02→20:43)
[2022-09-04] MEDS: DICLOFENAC SOD 1% GEL 100 GM TUBE EXT SCH ×4 (09:03→20:33)
[2022-09-04] MEDS: ENOXAPARIN INJ 40 MG/0.4 ML SYR SQ SCH ×2 (09:03→20:33)
[2022-09-04 09:07] LABS: T4 Free Thyroxine 0.83 ng/dl (0.61-1.60)
--- NOTE | 2022-09-04 12:02 | Hospitalist Progress Note ---
Date of Service September 04, 2022 Assessment & Plan (1) Weakness: Plan: Weakness is 2nd to severe deconditioning due to prolonged immobilization/institutionalization. Cont PT/OT. Patient desires to go home patient states that her outpatient case consultant is trying to arrange for certain devices at home these would include a ramp, a lift chair, wheelchair accessible front door and interior doors, drop side commode, patient currently has electric wheelchair but cannot fit into her home due to the size of the dorsal lack of ramp. CM found a rehab that is accepting but due to his distance from home and inability of her family to travel she is refusing. personnel coordinator helping to arrange her get wider doors/shower stall. Per case management note, family services specialist hoping to have REQUEST for home modifications submitted this week. The improvements WILL NOT be done this week. CM awaiting to hear back from family services specialist regarding home modifications. Will provide rx for equipment for home in order to safely care for pt at home given current situation with rx for motorized wheelchair, ramp, lift chair and dropped side toilet. Added albuterol nebulizer q4h as she uses at home. (2) Fracture of distal end of right femur: Plan: Seen by Dr. Su, indicates that femur fx is not healed and will likely not heal further * Cont NWB status to RLE * Transfer bed to wheelchair or chair and bedside commode with assistance of a walker * Needs SNF w/ rehab in order to get her to safely transfer Cont oxycodone 10mg po q8h prn, but mostly just takes prior to PT Cont voltaren gel 4gm QID to R knee scheduled (3) CKD (chronic kidney disease) stage 4, GFR 15-29 ml/min: Plan: Cr stable throughout this admission Cr baseline 1.4 to about 1.8 (4) Morbid obesity: Plan: BMI 56 needs weight loss, ?if able to consider Mounjaro vs Ozempic in future for additional weight loss/DM in future (5) Type 2 diabetes mellitus: Plan: HbA1c 8.9% pharmacy glycemic team managing her DM Had an insulin pump prior to admission - this is on hold Empagliflozin held Currently on lantus to 80u QAM, 75u QHS , continue SSI novolog Continued candy at bedside, non-compliance w/ carb consistent diet (6) Chronic respiratory failure: Plan: Stable. Probably predominantly OHS mediated Metal trach in place since 2007 - not interested in having this exchanged Follows with [facility] (7) HTN (hypertension): Plan: HTN/CAD/Chronic diastolic CHF- Controlled BP currently 136/66 CHF compensated Continue Imdur, metoprolol, aldactone and torsemide (8) Wound, breast: Plan: right seen by Wound Care nurse earlier in the stay continue dressing changes as per wound care team (9) Hypothyroidism (acquired): Plan: TSH 08/18/22 mildly high Increased Levothyroxine dose to 225mcg from 200mcg once daily -- continue at d/c repeat TSH 6 weeks around Sep 04, could be done inpatient if still here Plan DVT prophylaxis -- Lovenox 40mg BID. Disposition-case management on consult to assist in dc planning. She is medically stable for discharge. Multiple referrals sent out and finally found one rehab that will accept but pt refusing to go there at this time due to the distance from her home/daughter. Daughter to consider and if agreeable, this may influence the patient's opinion Discussed care with daughter 08/27 Updated CM on need for rx/family services specialist and they are to reach out today to see if arrangements truly able to be made Possible if taking time for home modifications pt may be served at SNF short term and then home pending discussion with family services specialist/CM. Referral faxed to [facility] as they now have an [employer] contract and they are reviewing. Continued inpatient stay Admission and Anticipated Discharge Date Admission Date: July 25, 2022 Subjective Patient seen on daily rounds this morning. No new complaints/concerns at this time. Had an episode of diarrhea this AM. Review of Systems Review of Systems: All systems reviewed and are unremarkable except as noted in HPI and below. Denies fever, chills, fatigue, headache, nasal congestion, sore throat, cough, chest pain, shortness of breath, palpitations, orthopnea, PND, abdominal pain, n/v, constipation, dysuria, hematuria, frequency, back pain, easy bruising or bleeding, skin lesions or rashes. Physical Exam Physical Exam: GENERAL: 67 yo morbidly obese WF. NAD. LUNGS: Clear to auscultation bilaterally. No W/R/R. metal trach noted. CARDIOVASCULAR: Regular rate and rhythm. ABDOMEN: Soft, non-tender and non-distended. BS normoactive x 4 quad. EXTREMITIES: trace edema. Non-tender. Peripheral pulses +2/4. NEUROLOGIC: A&O x3. Nonfocal PSYCHIATRIC: Cooperative. Appropriate mood and affect. SKIN: Warm, dry, intact. No rashes or lesions. Results & Data Results & Data ([facility]) Vital Signs (Past 12 Hours) Vital Signs Temp Pulse Resp BP Pulse Ox O2 Del Method 09/04/22 08:15 Room Air 09/04/22 11:01 71 18 94 Room Air 09/04/22 09:08 36.7 C 71 20 116/71 93 Room Air 09/04/22 07:47 77 20 93 Room Air PG Care Time/CCT Total # of Minutes Spent Total Time Spent with Patient: Total time spent is greater than 50% in coordination of care (as documented) at patient's floor/unit and/or counseling patient: Coding Level of Care Code 98665 Subseq Hosp Care Lvl 1 Diagnoses Weakness R53.1 Fracture of distal end of right femur S72.401A CKD (chronic kidney disease) stage 4, GFR 15-29 ml/min N18.4 Morbid obesity E66.01 Type 2 diabetes mellitus E11.9 Chronic respiratory failure J96.10 Respiratory failure complication: unspecified whether with hypoxia or hypercapnia HTN (hypertension) I10 Wound, breast S21.009A Hypothyroidism (acquired) E03.9 (1) Chronic respiratory failure Respiratory failure complication: unspecified whether with hypoxia or hypercapnia Qualified Code(s): J96.10 - Chronic respiratory failure, unspecified whether with hypoxia or hypercapnia
[2022-09-04] MEDS: ALBUTEROL 0.083% NEBU SOLN 3 ML VIAL NEB PRN (15:48)
[2022-09-04] MEDS: oxyCODONE HCL IR 5 MG TAB (IMMEDIATE RELEASE) PO PRN (18:58)
[2022-09-04] MEDS: MONTELUKAST SODIUM 10 MG TABLET PO SCH (20:29)
[2022-09-04] MEDS: ATORVASTATIN 40 MG TAB PO SCH (20:30)
[2022-09-04] MEDS: MELATONIN 3 MG TAB PO SCH (20:32)
[2022-09-05] MEDS: LEVOTHYROXINE SODIUM 75 MCG TABLET PO SCH (05:39)
[2022-09-05] MEDS: TORSEMIDE 10 MG TAB PO SCH ×2 (06:12→13:28)
[2022-09-05] MEDS: ALBUTEROL 0.083% NEBU SOLN 3 ML VIAL NEB PRN ×2 (07:58→11:35)
[2022-09-05] MEDS: Ipratropium HFA Inhaler (Combivent Respimat P&T Subs) INH SCH ×4 (08:00→19:15)
[2022-09-05] MEDS: Albuterol HFA 8 GM Inhaler (Combivent Respimat P&T Subs) INH SCH ×4 (08:00→19:15)
--- NOTE | 2022-09-05 08:37 | Hospitalist Progress Note ---
Date of Service September 05, 2022 Assessment & Plan (1) Weakness: Plan: Weakness is 2nd to severe deconditioning due to prolonged immobilization/institutionalization. Cont PT/OT. Patient desires to go home patient states that her outpatient immigration case worker is trying to arrange for certain devices at home these would include a ramp, a lift chair, wheelchair accessible front door and interior doors, drop side commode, patient currently has electric wheelchair but cannot fit into her home due to the size of the dorsal lack of ramp. CM found a rehab that is accepting but due to his distance from home and inability of her family to travel she is refusing. background check coordinator helping to arrange her get wider doors/shower stall. Per case management note, funeral service manager hoping to have REQUEST for home modifications submitted this week. The improvements WILL NOT be done this week. CM awaiting to hear back from funeral service manager regarding home modifications. Will provide rx for equipment for home in order to safely care for pt at home given current situation with rx for motorized wheelchair, ramp, lift chair and dropped side toilet. Added albuterol nebulizer q4h as she uses at home. (2) Fracture of distal end of right femur: Plan: Seen by Dr. Su, indicates that femur fx is not healed and will likely not heal further * Cont NWB status to RLE * Transfer bed to wheelchair or chair and bedside commode with assistance of a walker * Needs SNF w/ rehab in order to get her to safely transfer Cont oxycodone 10mg po q8h prn, but mostly just takes prior to PT Cont voltaren gel 4gm QID to R knee scheduled (3) CKD (chronic kidney disease) stage 4, GFR 15-29 ml/min: Plan: Cr stable throughout this admission Cr baseline 1.4 to about 1.8 (4) Morbid obesity: Plan: BMI 56 needs weight loss, ?if able to consider Mounjaro vs Ozempic in future for additional weight loss/DM in future (5) Type 2 diabetes mellitus: Plan: HbA1c 8.9% pharmacy glycemic team managing her DM Had an insulin pump prior to admission - this is on hold Empagliflozin held Currently on lantus to 80u QAM, 75u QHS , continue SSI novolog Continued candy at bedside, non-compliance w/ carb consistent diet (6) Chronic respiratory failure: Plan: Stable. Probably predominantly OHS mediated Metal trach in place since 2007 - not interested in having this exchanged Follows with [facility] (7) HTN (hypertension): Plan: HTN/CAD/Chronic diastolic CHF- Controlled BP currently 136/66 CHF compensated Continue Imdur, metoprolol, aldactone and torsemide (8) Wound, breast: Plan: right seen by Wound Care nurse earlier in the stay continue dressing changes as per wound care team (9) Hypothyroidism (acquired): Plan: TSH 08/18/22 mildly high Increased Levothyroxine dose to 225mcg from 200mcg once daily -- continue at d/c repeat TSH drawn on 09/04 but this was not 6 weeks from 08/18, would continue current dose and recheck in Mid September Plan DVT prophylaxis -- Lovenox 40mg BID. Disposition-case management on consult to assist in dc planning. She is medically stable for discharge. Multiple referrals sent out and finally found one rehab that will accept but pt refusing to go there at this time due to the distance from her home/daughter. Daughter to consider and if agreeable, this may influence the patient's opinion Discussed care with daughter 08/27 Updated CM on need for rx/funeral service manager and they are to reach out today to see if arrangements truly able to be made Possible if taking time for home modifications pt may be served at SNF short term and then home pending discussion with funeral service manager/CM. Referral faxed to [facility] as they now have an [employer] contract and they are reviewing. Continued inpatient stay Admission and Anticipated Discharge Date Admission Date: July 25, 2022 Subjective Patient seen on daily rounds this morning. No new complaints/concerns at this time. Review of Systems Review of Systems: All systems reviewed and are unremarkable except as noted in HPI and below. Denies fever, chills, fatigue, headache, nasal congestion, sore throat, cough, chest pain, shortness of breath, palpitations, orthopnea, PND, abdominal pain, n/v/d, constipation, dysuria, hematuria, frequency, back pain, easy bruising or bleeding, skin lesions or rashes. Physical Exam Physical Exam: GENERAL: 67 yo morbidly obese WF. NAD. LUNGS: Clear to auscultation bilaterally. No W/R/R. metal trach noted. CARDIOVASCULAR: Regular rate and rhythm. ABDOMEN: Soft, non-tender and non-distended. BS normoactive x 4 quad. EXTREMITIES: trace edema. Non-tender. Peripheral pulses +2/4. NEUROLOGIC: A&O x3. Nonfocal PSYCHIATRIC: Cooperative. Appropriate mood and affect. SKIN: Warm, dry, intact. No rashes or lesions. Results & Data Results & Data ([facility]) Vital Signs (Past 12 Hours) Vital Signs Temp Pulse Resp BP Pulse Ox O2 Del Method O2 Flow Rate 09/05/22 08:01 82 20 95 Room Air 09/05/22 07:37 36.4 C L 76 20 137/63 94 Room Air 09/04/22 22:34 82 20 96 Trach Collar 6 FiO2 09/05/22 08:01 09/05/22 07:37 09/04/22 22:34 28 PG Care Time/CCT Total # of Minutes Spent Total Time Spent with Patient: Total time spent is greater than 50% in coordination of care (as documented) at patient's floor/unit and/or counseling patient: Coding Level of Care Code 56635 Subseq Hosp Care Lvl 1 Diagnoses Weakness R53.1 Fracture of distal end of right femur S72.401A CKD (chronic kidney disease) stage 4, GFR 15-29 ml/min N18.4 Morbid obesity E66.01 Type 2 diabetes mellitus E11.9 Chronic respiratory failure J96.10 Respiratory failure complication: unspecified whether with hypoxia or hypercapnia HTN (hypertension) I10 Wound, breast S21.009A Hypothyroidism (acquired) E03.9 (1) Chronic respiratory failure Respiratory failure complication: unspecified whether with hypoxia or hypercapnia Qualified Code(s): J96.10 - Chronic respiratory failure, unspecified whether with hypoxia or hypercapnia
[2022-09-05] MEDS: ISOSORBIDE MONO EXTENDED REL 30 MG TABCR PO SCH (09:23)
[2022-09-05] MEDS: PANTOprazole 40 MG TAB PO SCH ×2 (09:23→21:03)
[2022-09-05] MEDS: ASPIRIN 81 MG ECTAB PO SCH (09:23)
[2022-09-05] MEDS: FOLIC ACID 1 MG TAB PO SCH (09:23)
[2022-09-05] MEDS: ACETAMINOPHEN 500 MG TAB PO SCH ×3 (09:23→21:02)
[2022-09-05] MEDS: POTASSIUM CHLORIDE CRTAB 20 MEQ TABCR PO SCH ×2 (09:24→21:03)
[2022-09-05] MEDS: METOPROLOL TARTRATE 25 MG TAB PO SCH ×2 (09:24→21:03)
[2022-09-05] MEDS: MULTIVITAMIN TAB PO SCH (09:24)
[2022-09-05] MEDS: SPIRONOLACTONE 25 MG TAB PO SCH (09:24)
[2022-09-05] MEDS: ADVANCED PROBIOTIC 1250 MG CAPSULE PO SCH (09:24)
[2022-09-05] MEDS: buPROPion SR 100 MG TABCR PO SCH ×2 (09:25→23:24)
[2022-09-05] MEDS: TOPIRAMATE 100 MG TAB PO SCH ×2 (09:25→23:24)
[2022-09-05] MEDS: LANTUS PER UNIT CHARGE SQ SCH ×2 (09:34→21:17)
[2022-09-05] MEDS: INSULIN ASPART PER UNIT SC SCH ×4 (09:34→21:18)
[2022-09-05] MEDS: DICLOFENAC SOD 1% GEL 100 GM TUBE EXT SCH ×4 (09:37→21:12)
[2022-09-05] MEDS: ENOXAPARIN INJ 40 MG/0.4 ML SYR SQ SCH ×2 (09:37→21:18)
--- NOTE | 2022-09-05 13:34 | Pharmacy Report ---
Pharmacy Glycemic Sign Off Nt - Date of Service September 05, 2022 - Assessment & Plan ASSESSMENT: * Pharmacy was consulted by Dr Mansfield on 07/24/22 for glycemic control and to write orders per [facility] inpatient glycemic control protocol. * Major changes made by pharmacy to antidiabetic regimen include: * Initiation of Lantus and titration upwards to 80 units BID * Initiation and tightening of Novolog * Patient has been receiving/requiring ~350-370 units of insulin per day for adequate glycemic control * BSGs ranging 131- 198 mg/dl * Regimen has only required minor adjustments over the past 48hrs to achieve this level of control * Do not anticipate further changes in patient status that would quickly deteriorate glycemic control (i.e. patient to be NPO for upcoming procedure, steroids tapering, starting tube feedings, etc). * Please see recommendations for outpatient antidiabetic regimen below. PLAN FOR INPATIENT GLYCEMIC CONTROL: No changes needed to current regimen. * Continue basal insulin with Lantus 80 units SQ BID * Continue NovoLog per scale ACHS/Q6hrs while NPO * Goal range = 110- 140 mg/dl * CF = 5 mg/dl/unit * CR = 1 unit for ever 1 g CHO consumed * Pharmacy is signing off of glycemic consult and will no longer be making adjustments to inpatient regimen. Please feel free to re-consult if needed. Thank you.
[2022-09-05] MEDS: MONTELUKAST SODIUM 10 MG TABLET PO SCH (21:03)
[2022-09-05] MEDS: ATORVASTATIN 40 MG TAB PO SCH (21:03)
[2022-09-05] MEDS: MELATONIN 3 MG TAB PO SCH (23:23)
[2022-09-06] MEDS: ALUMINUM/MAGNESIUM SUSP 30 ML UDC PO PRN (00:22)
[2022-09-06] MEDS: LEVOTHYROXINE SODIUM 75 MCG TABLET PO SCH (06:16)
[2022-09-06] MEDS: TORSEMIDE 10 MG TAB PO SCH ×2 (06:17→13:00)
[2022-09-06 06:58] LABS: Creatinine Clr Calc Pharmacy 49.7 ml/min; Est GFR (African American) 41.3 ml/min; Est GFR (Non-African American) 35.6 ml/min
[2022-09-06] MEDS: Ipratropium HFA Inhaler (Combivent Respimat P&T Subs) INH SCH ×4 (07:13→19:35)
[2022-09-06] MEDS: Albuterol HFA 8 GM Inhaler (Combivent Respimat P&T Subs) INH SCH ×4 (07:14→19:35)
[2022-09-06] MEDS: INSULIN ASPART PER UNIT SC SCH ×4 (08:20→21:21)
[2022-09-06] MEDS: LANTUS PER UNIT CHARGE SQ SCH ×2 (08:37→21:21)
[2022-09-06] MEDS: ENOXAPARIN INJ 40 MG/0.4 ML SYR SQ SCH ×2 (08:39→21:12)
[2022-09-06] MEDS: FOLIC ACID 1 MG TAB PO SCH (08:43)
[2022-09-06] MEDS: ACETAMINOPHEN 500 MG TAB PO SCH ×3 (08:43→21:11)
[2022-09-06] MEDS: DICLOFENAC SOD 1% GEL 100 GM TUBE EXT SCH ×4 (08:43→21:14)
[2022-09-06] MEDS: ASPIRIN 81 MG ECTAB PO SCH (08:43)
[2022-09-06] MEDS: ISOSORBIDE MONO EXTENDED REL 30 MG TABCR PO SCH (08:43)
[2022-09-06] MEDS: buPROPion SR 100 MG TABCR PO SCH ×2 (08:43→21:12)
[2022-09-06] MEDS: MULTIVITAMIN TAB PO SCH (08:44)
[2022-09-06] MEDS: ADVANCED PROBIOTIC 1250 MG CAPSULE PO SCH (08:44)
[2022-09-06] MEDS: METOPROLOL TARTRATE 25 MG TAB PO SCH ×2 (08:44→21:12)
[2022-09-06] MEDS: POTASSIUM CHLORIDE CRTAB 20 MEQ TABCR PO SCH ×2 (08:45→21:11)
[2022-09-06] MEDS: TOPIRAMATE 100 MG TAB PO SCH ×2 (08:45→21:11)
[2022-09-06] MEDS: PANTOprazole 40 MG TAB PO SCH ×2 (08:45→21:11)
[2022-09-06] MEDS: SPIRONOLACTONE 25 MG TAB PO SCH (08:45)
--- NOTE | 2022-09-06 10:19 | Hospitalist Progress Note ---
Date of Service September 06, 2022 Assessment & Plan (1) Weakness: Plan: Weakness is 2nd to severe deconditioning due to prolonged immobilization/institutionalization. Cont PT/OT. Patient desires to go home patient states that her outpatient rn case manager is trying to arrange for certain devices at home these would include a ramp, a lift chair, wheelchair accessible front door and interior doors, drop side commode, patient currently has electric wheelchair but cannot fit into her home due to the size of the dorsal lack of ramp. CM found a rehab that is accepting but due to his distance from home and inability of her family to travel she is refusing. public policy coordinator helping to arrange her get wider doors/shower stall. Per case management note, respiratory services manager hoping to have REQUEST for home modifications submitted this week. The improvements WILL NOT be done this week. CM awaiting to hear back from respiratory services manager regarding home modifications. Will provide rx for equipment for home in order to safely care for pt at home given current situation with rx for motorized wheelchair, ramp, lift chair and dropped side toilet. Added albuterol nebulizer q4h as she uses at home. (2) Fracture of distal end of right femur: Plan: Seen by Dr. Su, indicates that femur fx is not healed and will likely not heal further * Cont NWB status to RLE * Transfer bed to wheelchair or chair and bedside commode with assistance of a walker * Needs SNF w/ rehab in order to get her to safely transfer Cont oxycodone 10mg po q8h prn, but mostly just takes prior to PT Cont voltaren gel 4gm QID to R knee scheduled (3) CKD (chronic kidney disease) stage 4, GFR 15-29 ml/min: Plan: Cr stable throughout this admission Cr baseline 1.4 to about 1.8 (4) Morbid obesity: Plan: BMI 56 needs weight loss, ?if able to consider Mounjaro vs Ozempic in future for additional weight loss/DM in future (5) Type 2 diabetes mellitus: Plan: HbA1c 8.9% pharmacy glycemic team managing her DM Had an insulin pump prior to admission - this is on hold Empagliflozin held Currently on lantus to 80u QAM, 75u QHS , continue SSI novolog Continued candy at bedside, non-compliance w/ carb consistent diet (6) Chronic respiratory failure: Plan: Stable. Probably predominantly OHS mediated Metal trach in place since 2007 - not interested in having this exchanged Follows with [facility] (7) HTN (hypertension): Plan: HTN/CAD/Chronic diastolic CHF- Controlled BP currently 136/66 CHF compensated Continue Imdur, metoprolol, aldactone and torsemide (8) Wound, breast: Plan: right seen by Wound Care nurse earlier in the stay continue dressing changes as per wound care team (9) Hypothyroidism (acquired): Plan: TSH 08/18/22 mildly high Increased Levothyroxine dose to 225mcg from 200mcg once daily -- continue at d/c repeat TSH drawn on 09/04 but this was not 6 weeks from 08/18, would continue current dose and recheck in Mid September Plan DVT prophylaxis -- Lovenox 40mg BID. Disposition-case management on consult to assist in dc planning. She is medically stable for discharge. Multiple referrals sent out and finally found one rehab that will accept but pt refusing to go there at this time due to the distance from her home/daughter. Daughter to consider and if agreeable, this may influence the patient's opinion Discussed care with daughter 08/27 Updated CM on need for rx/respiratory services manager and they are to reach out today to see if arrangements truly able to be made Possible if taking time for home modifications pt may be served at SNF short term and then home pending discussion with respiratory services manager/CM. Referral faxed to [facility] as they now have an [employer] contract and they are reviewing. Continued inpatient stay Admission and Anticipated Discharge Date Admission Date: July 25, 2022 Subjective Patient seen on daily rounds this morning. No new complaints/concerns at this time. Review of Systems Review of Systems: All systems reviewed and are unremarkable except as noted in HPI and below. Denies fever, chills, fatigue, headache, nasal congestion, sore throat, cough, chest pain, shortness of breath, palpitations, orthopnea, PND, abdominal pain, n/v/d, constipation, dysuria, hematuria, frequency, back pain, easy bruising or bleeding, skin lesions or rashes. Physical Exam Physical Exam: GENERAL: 67 yo morbidly obese WF. NAD. LUNGS: Clear to auscultation bilaterally. No W/R/R. metal trach noted. CARDIOVASCULAR: Regular rate and rhythm. ABDOMEN: Soft, non-tender and non-distended. BS normoactive x 4 quad. EXTREMITIES: trace edema. Non-tender. Peripheral pulses +2/4. NEUROLOGIC: A&O x3. Nonfocal PSYCHIATRIC: Cooperative. Appropriate mood and affect. SKIN: Warm, dry, intact. No rashes or lesions. Results & Data Results & Data ([facility]) Vital Signs (Past 12 Hours) Vital Signs Temp Pulse Pulse Resp BP Pulse Ox O2 Del Method 09/06/22 07:44 36.5 C 72 18 143/73 H 94 Room Air 09/06/22 07:16 73 16 94 Room Air 09/05/22 23:52 94 H 22 95 Trach Collar O2 Flow Rate FiO2 09/06/22 07:44 09/06/22 07:16 09/05/22 23:52 6 28 PG Care Time/CCT Total # of Minutes Spent Total Time Spent with Patient: Total time spent is greater than 50% in coordination of care (as documented) at patient's floor/unit and/or counseling patient: Coding Level of Care Code 81228 Subseq Hosp Care Lvl 1 Diagnoses Weakness R53.1 Fracture of distal end of right femur S72.401A CKD (chronic kidney disease) stage 4, GFR 15-29 ml/min N18.4 Morbid obesity E66.01 Type 2 diabetes mellitus E11.9 Chronic respiratory failure J96.10 Respiratory failure complication: unspecified whether with hypoxia or hypercapnia HTN (hypertension) I10 Wound, breast S21.009A Hypothyroidism (acquired) E03.9 (1) Chronic respiratory failure Respiratory failure complication: unspecified whether with hypoxia or hypercapnia Qualified Code(s): J96.10 - Chronic respiratory failure, unspecified whether with hypoxia or hypercapnia
[2022-09-06] MEDS: oxyCODONE HCL IR 5 MG TAB (IMMEDIATE RELEASE) PO PRN (12:56)
[2022-09-06] MEDS: MONTELUKAST SODIUM 10 MG TABLET PO SCH (21:11)
[2022-09-06] MEDS: ATORVASTATIN 40 MG TAB PO SCH (21:11)
[2022-09-06] MEDS: MELATONIN 3 MG TAB PO SCH (21:12)
[2022-09-07] MEDS: LEVOTHYROXINE SODIUM 75 MCG TABLET PO SCH (06:07)
[2022-09-07] MEDS: TORSEMIDE 10 MG TAB PO SCH ×2 (06:08→14:20)
[2022-09-07] MEDS: Ipratropium HFA Inhaler (Combivent Respimat P&T Subs) INH SCH ×4 (07:43→19:07)
[2022-09-07] MEDS: Albuterol HFA 8 GM Inhaler (Combivent Respimat P&T Subs) INH SCH ×4 (07:44→19:07)
[2022-09-07] MEDS: INSULIN ASPART PER UNIT SC SCH ×4 (09:00→21:19)
[2022-09-07] MEDS: LANTUS PER UNIT CHARGE SQ SCH ×2 (09:01→21:18)
[2022-09-07] MEDS: TOPIRAMATE 100 MG TAB PO SCH ×2 (09:07→20:50)
[2022-09-07] MEDS: SPIRONOLACTONE 25 MG TAB PO SCH (09:07)
[2022-09-07] MEDS: POTASSIUM CHLORIDE CRTAB 20 MEQ TABCR PO SCH ×2 (09:07→20:51)
[2022-09-07] MEDS: MULTIVITAMIN TAB PO SCH (09:08)
[2022-09-07] MEDS: PANTOprazole 40 MG TAB PO SCH ×2 (09:08→20:50)
[2022-09-07] MEDS: METOPROLOL TARTRATE 25 MG TAB PO SCH ×2 (09:08→20:50)
[2022-09-07] MEDS: FOLIC ACID 1 MG TAB PO SCH (09:09)
[2022-09-07] MEDS: ISOSORBIDE MONO EXTENDED REL 30 MG TABCR PO SCH (09:09)
[2022-09-07] MEDS: ADVANCED PROBIOTIC 1250 MG CAPSULE PO SCH (09:09)
[2022-09-07] MEDS: buPROPion SR 100 MG TABCR PO SCH ×2 (09:10→20:50)
[2022-09-07] MEDS: ASPIRIN 81 MG ECTAB PO SCH (09:10)
[2022-09-07] MEDS: ACETAMINOPHEN 500 MG TAB PO SCH ×3 (09:11→20:51)
[2022-09-07] MEDS: ENOXAPARIN INJ 40 MG/0.4 ML SYR SQ SCH ×2 (09:18→20:51)
[2022-09-07] MEDS: DICLOFENAC SOD 1% GEL 100 GM TUBE EXT SCH ×4 (09:19→20:52)
--- NOTE | 2022-09-07 15:34 | Hospitalist Progress Note ---
Date of Service September 07, 2022 Assessment & Plan (1) Weakness: Plan: Weakness is 2nd to severe deconditioning due to prolonged immobilization/institutionalization. Cont PT/OT. Patient desires to go home patient states that her outpatient family caseworker is trying to arrange for certain devices at home these would include a ramp, a lift chair, wheelchair accessible front door and interior doors, drop side commode, patient currently has electric wheelchair but cannot fit into her home due to the size of the dorsal lack of ramp. CM found a rehab that is accepting but due to his distance from home and inability of her family to travel she is refusing. online content coordinator helping to arrange her get wider doors/shower stall. Per case management note, room service supervisor hoping to have REQUEST for home modifications submitted this week. The improvements WILL NOT be done this week. CM awaiting to hear back from room service supervisor regarding home modifications. Will provide rx for equipment for home in order to safely care for pt at home given current situation with rx for motorized wheelchair, ramp, lift chair and dropped side toilet. Added albuterol nebulizer q4h as she uses at home. (2) Fracture of distal end of right femur: Plan: Seen by Dr. Su, indicates that femur fx is not healed and will likely not heal further * Cont NWB status to RLE * Transfer bed to wheelchair or chair and bedside commode with assistance of a walker * Needs SNF w/ rehab in order to get her to safely transfer Cont oxycodone 10mg po q8h prn, but mostly just takes prior to PT Cont voltaren gel 4gm QID to R knee scheduled (3) CKD (chronic kidney disease) stage 4, GFR 15-29 ml/min: Plan: Cr stable throughout this admission Cr baseline 1.4 to about 1.8 (4) Morbid obesity: Plan: BMI 56 needs weight loss, ?if able to consider Mounjaro vs Ozempic in future for additional weight loss/DM in future (5) Type 2 diabetes mellitus: Plan: HbA1c 8.9% pharmacy glycemic team managing her DM Had an insulin pump prior to admission - this is on hold Empagliflozin held Currently on lantus to 80u QAM, 75u QHS , continue SSI novolog Continued candy at bedside, non-compliance w/ carb consistent diet (6) Chronic respiratory failure: Plan: Stable. Probably predominantly OHS mediated Metal trach in place since 2007 - not interested in having this exchanged Follows with [facility] (7) HTN (hypertension): Plan: HTN/CAD/Chronic diastolic CHF- Controlled BP currently 136/66 CHF compensated Continue Imdur, metoprolol, aldactone and torsemide (8) Wound, breast: Plan: right seen by Wound Care nurse earlier in the stay continue dressing changes as per wound care team (9) Hypothyroidism (acquired): Plan: TSH 08/18/22 mildly high Increased Levothyroxine dose to 225mcg from 200mcg once daily -- continue at d/c repeat TSH drawn on 09/04 but this was not 6 weeks from 08/18, would continue current dose and recheck in Mid September Plan DVT prophylaxis -- Lovenox 40mg BID. Discussed care with daughter 08/27 Updated CM on need for rx/room service supervisor and they are to reach out today to see if arrangements truly able to be made Possible if taking time for home modifications pt may be served at SNF short term and then home pending discussion with room service supervisor/CM. Referral faxed to [facility], they have accepted patient and auth was submitted but still is pending at this time. She is medically stable for discharge once auth received. Admission and Anticipated Discharge Date Admission Date: July 25, 2022 Subjective Patient seen on daily rounds this morning. No new complaints/concerns at this time. Was accepted at [facility] but auth is still pending. Review of Systems Review of Systems: All systems reviewed and are unremarkable except as noted in HPI and below. Denies fever, chills, fatigue, headache, nasal congestion, sore throat, cough, chest pain, shortness of breath, palpitations, orthopnea, PND, abdominal pain, n/v/d, constipation, dysuria, hematuria, frequency, back pain, joint pain or swelling, easy bruising or bleeding, skin lesions or rashes. Physical Exam Physical Exam: GENERAL: 67 yo morbidly obese WF. NAD. LUNGS: Clear to auscultation bilaterally. No W/R/R. metal trach noted. CARDIOVASCULAR: Regular rate and rhythm. ABDOMEN: Soft, non-tender and non-distended. BS normoactive x 4 quad. EXTREMITIES: trace edema. Non-tender. Peripheral pulses +2/4. NEUROLOGIC: A&O x3. Nonfocal PSYCHIATRIC: Cooperative. Appropriate mood and affect. SKIN: Warm, dry, intact. No rashes or lesions. Results & Data Results & Data ([facility]) Vital Signs (Past 12 Hours) Vital Signs Temp Pulse Resp BP Pulse Ox O2 Del Method 09/07/22 15:10 86 20 91 Room Air 09/07/22 11:14 94 H 20 92 Room Air 09/07/22 08:18 36.5 C 78 18 127/73 92 Room Air 09/07/22 07:48 88 20 92 Room Air PG Care Time/CCT Total # of Minutes Spent Total Time Spent with Patient: Total time spent is greater than 50% in coordination of care (as documented) at patient's floor/unit and/or counseling patient: Coding Level of Care Code 49028 Subseq Hosp Care Lvl 1 Diagnoses Weakness R53.1 Fracture of distal end of right femur S72.401A CKD (chronic kidney disease) stage 4, GFR 15-29 ml/min N18.4 Morbid obesity E66.01 Type 2 diabetes mellitus E11.9 Chronic respiratory failure J96.10 Respiratory failure complication: unspecified whether with hypoxia or hypercapnia HTN (hypertension) I10 Wound, breast S21.009A Hypothyroidism (acquired) E03.9 (1) Chronic respiratory failure Respiratory failure complication: unspecified whether with hypoxia or hypercapnia Qualified Code(s): J96.10 - Chronic respiratory failure, unspecified whether with hypoxia or hypercapnia
[2022-09-07] MEDS: ATORVASTATIN 40 MG TAB PO SCH (20:50)
[2022-09-07] MEDS: MELATONIN 3 MG TAB PO SCH (20:51)
[2022-09-07] MEDS: MONTELUKAST SODIUM 10 MG TABLET PO SCH (20:51)
[2022-09-08] MEDS: TORSEMIDE 10 MG TAB PO SCH ×2 (06:32→13:28)
[2022-09-08] MEDS: LEVOTHYROXINE SODIUM 75 MCG TABLET PO SCH (06:32)
[2022-09-08] MEDS: Albuterol HFA 8 GM Inhaler (Combivent Respimat P&T Subs) INH SCH ×4 (07:17→19:26)
[2022-09-08] MEDS: Ipratropium HFA Inhaler (Combivent Respimat P&T Subs) INH SCH ×4 (07:17→19:26)
[2022-09-08] MEDS: SPIRONOLACTONE 25 MG TAB PO SCH (08:56)
[2022-09-08] MEDS: MULTIVITAMIN TAB PO SCH (08:56)
[2022-09-08] MEDS: ASPIRIN 81 MG ECTAB PO SCH (08:56)
[2022-09-08] MEDS: FOLIC ACID 1 MG TAB PO SCH (08:56)
[2022-09-08] MEDS: POTASSIUM CHLORIDE CRTAB 20 MEQ TABCR PO SCH ×2 (08:56→20:08)
[2022-09-08] MEDS: PANTOprazole 40 MG TAB PO SCH ×2 (08:57→20:07)
[2022-09-08] MEDS: buPROPion SR 100 MG TABCR PO SCH ×2 (08:57→20:08)
[2022-09-08] MEDS: METOPROLOL TARTRATE 25 MG TAB PO SCH ×2 (08:57→20:09)
[2022-09-08] MEDS: ISOSORBIDE MONO EXTENDED REL 30 MG TABCR PO SCH (08:57)
[2022-09-08] MEDS: TOPIRAMATE 100 MG TAB PO SCH ×2 (08:57→20:08)
[2022-09-08] MEDS: ACETAMINOPHEN 500 MG TAB PO SCH ×3 (08:57→20:09)
[2022-09-08] MEDS: ADVANCED PROBIOTIC 1250 MG CAPSULE PO SCH (08:57)
[2022-09-08] MEDS: ENOXAPARIN INJ 40 MG/0.4 ML SYR SQ SCH ×2 (08:59→20:10)
[2022-09-08] MEDS: DICLOFENAC SOD 1% GEL 100 GM TUBE EXT SCH ×4 (08:59→20:14)
[2022-09-08] MEDS: INSULIN ASPART PER UNIT SC SCH ×4 (09:04→22:24)
[2022-09-08] MEDS: LANTUS PER UNIT CHARGE SQ SCH ×2 (09:04→22:25)
[2022-09-08] MEDS: oxyCODONE HCL IR 5 MG TAB (IMMEDIATE RELEASE) PO PRN (13:30)
[2022-09-08] MEDS: ALBUTEROL 0.083% NEBU SOLN 3 ML VIAL NEB PRN (15:21)
--- NOTE | 2022-09-08 19:18 | Hospitalist Progress Note ---
Date of Service September 08, 2022 Assessment & Plan (1) Weakness: Plan: Weakness is 2nd to severe deconditioning due to prolonged immobilization/institutionalization and long admission at [facility]. PT/OT completed. Patient recommended for intermediate at this time.. Patient desires to go home patient states that her outpatient shoe caser is trying to arrange for certain devices at home these would include a ramp, a lift chair, wheelchair accessible front door and interior doors, drop side commode, patient currently has electric wheelchair but cannot fit into her home due to the size of the dorsal lack of ramp. CM found a rehab that is accepting but due to his distance from home and inability of her family to travel she is refusing. sourcing coordinator helping to arrange her get wider doors/shower stall. Per case management note, counseling services director hoping to have REQUEST for home modifications submitted this week. Unfortunately, the improvements will not be completed prior to eligibility for discharge. Patient is aware. Until modifications can be made at home, patient will be discharged to [facility]. This is anticipated for tomorrow, Patient is aware. Rx for equipment for home provided to CM to safely care for pt at home given current situation with rx for motorized wheelchair, ramp, lift chair and dropped side toilet. Continue usual home medications (2) Fracture of distal end of right femur: Plan: Seen by Dr. Su, indicates that femur fx is not healed and will likely not heal further * Cont NWB status to RLE * Transfer bed to wheelchair or chair and bedside commode with assistance of a walker * Needs SNF w/ rehab in order to get her to safely transfer Cont oxycodone 10mg po q8h prn, but mostly just takes prior to PT Cont voltaren gel 4gm QID to R knee scheduled Further management with outpatient orthopedics (3) CKD (chronic kidney disease) stage 4, GFR 15-29 ml/min: Plan: Cr stable throughout this admission Cr baseline 1.4 to about 1.8 (4) Morbid obesity: Plan: BMI 56 needs weight loss, ?if able to consider Mounjaro vs Ozempic in future for additional weight loss/DM in future (5) Type 2 diabetes mellitus: Plan: HbA1c 8.9% pharmacy glycemic team managing her DM Had an insulin pump prior to admission - this is on hold Empagliflozin held Currently on lantus to 80u QAM, 75u QHS , continue SSI novolog Continued candy at bedside, non-compliance w/ carb consistent diet (6) Chronic respiratory failure: Plan: Stable. Probably predominantly OHS mediated Metal trach in place since 2007 - not interested in having this exchanged Follows with [facility] (7) HTN (hypertension): Plan: HTN/CAD/Chronic diastolic CHF- Hemodynamically stable CHF compensated Continue Imdur, metoprolol, aldactone and torsemide (8) Wound, breast: Plan: right seen by Wound Care nurse earlier in the stay continue dressing changes as per wound care team (9) Hypothyroidism (acquired): Plan: TSH 08/18/22 mildly high Increased Levothyroxine dose to 225mcg from 200mcg once daily -- continue at d/c repeat TSH drawn on 09/04 but this was not 6 weeks from 08/18, would continue current dose and recheck in Mid September Plan DVT prophylaxis -- Lovenox 40mg BID. CM aware of need for rx/counseling services director and they are to reach out today to see if arrangements truly able to be made Referral to [facility]. Patient accepted and auth Approved. She is medically stable for discharge. Anticipate discharge tomorrow. Admission and Anticipated Discharge Date Admission Date: July 25, 2022 Subjective Attending: Dr. Jaramillo Patient seen and examined in room 303 today. She is sitting in bedside chair. She is pleasant and appears to be comfortable. She has no evidence of distress. She does report that she had some tightness in her chest today that was relieved with nebulizer treatments. She has no new acute complaints. Review of Systems Review of Systems: A total of 10 systems was reviewed and is negative other than as listed in the HPI Physical Exam Physical Exam: GENERAL : No acute distress EYES: No icterus, gaze conjugate NOSE: No evidence of epistaxis MOUTH: No lesions or candidiasis NECK: Supple. Christophe tracheostomy is in place. There is no erythema around the os. There is no discharge or sputum noted in the tracheostomy tube. LUNGS: CTA B/L, no wheezes, rales or rhonchi. Patient has good airflow bilaterally. Breath sounds equal at the bilateral bases. HEART: Regular, rate controlled ABDOMEN: Soft, NT, ND, BS Present EXTREMITIES: No LE edema, pedal pulses intact NEURO: A&OX3 Results & Data Results & Data ([facility]) Vital Signs (Past 12 Hours) Vital Signs Temp Pulse Pulse Resp BP BP Pulse Ox 09/08/22 15:56 36.9 C 79 24 133/74 93 09/08/22 15:24 74 22 92 09/08/22 11:12 88 20 92 09/08/22 08:00 09/08/22 07:30 75 22 92 09/08/22 07:24 36.5 C 75 24 141/84 H 92 O2 Del Method 09/08/22 15:56 Room Air 09/08/22 15:24 Room Air 09/08/22 11:12 Room Air 09/08/22 08:00 Room Air 09/08/22 07:30 Room Air 09/08/22 07:24 Room Air PG Care Time/CCT Total # of Minutes Spent Total Time Spent with Patient: Total time spent is greater than 50% in coordination of care (as documented) at patient's floor/unit and/or counseling patient: Coding Level of Care Code 38918 Subseq Hosp Care Lvl 2 Diagnoses Weakness R53.1 Fracture of distal end of right femur S72.401A CKD (chronic kidney disease) stage 4, GFR 15-29 ml/min N18.4 Morbid obesity E66.01 Type 2 diabetes mellitus E11.9 Chronic respiratory failure J96.10 Respiratory failure complication: unspecified whether with hypoxia or hypercapnia HTN (hypertension) I10 Wound, breast S21.009A Hypothyroidism (acquired) E03.9 (1) Chronic respiratory failure Respiratory failure complication: unspecified whether with hypoxia or hypercapnia Qualified Code(s): J96.10 - Chronic respiratory failure, unspecified whether with hypoxia or hypercapnia
[2022-09-08] MEDS: MELATONIN 3 MG TAB PO SCH (20:07)
[2022-09-08] MEDS: ATORVASTATIN 40 MG TAB PO SCH (20:08)
[2022-09-08] MEDS: MONTELUKAST SODIUM 10 MG TABLET PO SCH (22:26)
[2022-09-08] MEDS: ALUMINUM/MAGNESIUM SUSP 30 ML UDC PO PRN (22:29)
[2022-09-09] MEDS: TORSEMIDE 10 MG TAB PO SCH (06:01)
[2022-09-09] MEDS: LEVOTHYROXINE SODIUM 75 MCG TABLET PO SCH (06:01)
[2022-09-09] MEDS: ALBUTEROL 0.083% NEBU SOLN 3 ML VIAL NEB PRN (07:19)
[2022-09-09] MEDS: Ipratropium HFA Inhaler (Combivent Respimat P&T Subs) INH SCH ×3 (07:23→14:31)
[2022-09-09] MEDS: Albuterol HFA 8 GM Inhaler (Combivent Respimat P&T Subs) INH SCH ×3 (07:24→14:31)
[2022-09-09 07:35] LABS: Creatinine Clr Calc Pharmacy 50.7 ml/min; Est GFR (African American) 42.3 ml/min; Est GFR (Non-African American) 36.5 ml/min
[2022-09-09] MEDS: ADVANCED PROBIOTIC 1250 MG CAPSULE PO SCH (08:38)
[2022-09-09] MEDS: TOPIRAMATE 100 MG TAB PO SCH (08:39)
[2022-09-09] MEDS: ISOSORBIDE MONO EXTENDED REL 30 MG TABCR PO SCH (08:39)
[2022-09-09] MEDS: METOPROLOL TARTRATE 25 MG TAB PO SCH (08:39)
[2022-09-09] MEDS: SPIRONOLACTONE 25 MG TAB PO SCH (08:39)
[2022-09-09] MEDS: ASPIRIN 81 MG ECTAB PO SCH (08:40)
[2022-09-09] MEDS: FOLIC ACID 1 MG TAB PO SCH (08:40)
[2022-09-09] MEDS: buPROPion SR 100 MG TABCR PO SCH (08:40)
[2022-09-09] MEDS: POTASSIUM CHLORIDE CRTAB 20 MEQ TABCR PO SCH (08:40)
[2022-09-09] MEDS: PANTOprazole 40 MG TAB PO SCH (08:40)
[2022-09-09] MEDS: MULTIVITAMIN TAB PO SCH (08:40)
[2022-09-09] MEDS: ACETAMINOPHEN 500 MG TAB PO SCH (08:41)
[2022-09-09] MEDS: DICLOFENAC SOD 1% GEL 100 GM TUBE EXT SCH ×2 (08:41→12:48)
[2022-09-09] MEDS: ENOXAPARIN INJ 40 MG/0.4 ML SYR SQ SCH (08:41)
[2022-09-09] MEDS: LANTUS PER UNIT CHARGE SQ SCH (08:43)
[2022-09-09] MEDS: INSULIN ASPART PER UNIT SC SCH ×2 (08:46→12:47)
[2022-09-09] MEDS: oxyCODONE HCL IR 5 MG TAB (IMMEDIATE RELEASE) PO PRN (12:54)
--- NOTE | 2022-09-09 13:05 | Discharge Summary ---
Date of Service September 09, 2022 Admission HPI Per Admitting Provider Patient is a very pleasant 67-year-old female known to me from prior admissions. She was here in March with a fracture, transferred to [place] for surgery, transferred from [place] to a rehab in [place] where she has been ever since. She noted that she did not feel like she was ready to go homewas still quite weakbut noted that the facility was only going to keep her if she started paying [id number], which she noted she was not able to do. She then was discharged home with a plan for home health and her daughter to help care for her. When asked directly, she did not feel that this was a very viable plan but felt that she had no other choice. When she made it home in her driveway her legs were too weak to stand and she fell in the driveway. She also became short of breath and subsequently had chest painalthough she notes all of this was alleviated when her trach was suctioned. Other than being a bit upset about the situation and needing to pee, she has no complaints still ongoing. Admission Exam Per Admitting Provider Physical Exam: General she is awake alert oriented x3 pleasant no distress. HEENT normocephalic atraumatic mucous membranes moist. Metal tracheostomy in place. Cardio is regular very distant no rubs murmurs or gallops. Lungs are very distant and quiet, no obvious adventitious sounds no obvious rales rhonchi or wheezes, no conversational dyspnea no accessory muscle useshe does have a mucous rattle in her upper airway at times. Abdomen is soft nondistended nontender no masses organomegaly. Extremities are without cyanosis or clubbing there is bilateral lower extremity edema equal/symmetric/consistent with venous stasis she has a leg brace on her right leg, no calf tenderness. Skin without rashes, pallor, icterus. Neuro shows cranial nerves II through XII be grossly intact gross motor and sensory are intact. Mental status shows her to be at her baseline level of anxiety, good recent and remote recall, normal mood and affect outside of above-mentioned baseline state of anxiety. Principal Diagnosis Chest pain and weakness Discharge Exam GENERAL : No acute distress EYES: No icterus, gaze conjugate NOSE: No evidence of epistaxis MOUTH: No lesions or candidiasis NECK: Supple. Metal Christophe trach is in place and secure. No erythema around the tracheostomy tube. No mucous plugging or anything in the tracheostomy tube. LUNGS: CTA B/L, no wheezes, rales or rhonchi HEART: Regular, rate controlled ABDOMEN: Soft, NT, ND, BS Present EXTREMITIES: No LE edema, pedal pulses intact NEURO: A&OX3 Discharge Data Allergies Allergy/AdvReac Type Severity Reaction Status Date / Time Penicillins Allergy Intermediate Hives Verified 07/24/22 18:18 amitriptyline Allergy Unknown Unknown Verified 07/24/22 18:18 doxycycline Allergy Unknown Unknown Verified 07/24/22 18:18 guaifenesin Allergy Unknown Unknown Verified 07/24/22 18:18 metformin Allergy Unknown Unknown Verified 07/24/22 18:18 phenylephrine Allergy Unknown Unknown Verified 07/24/22 18:18 pseudoephedrine Allergy Unknown Unknown Verified 07/24/22 18:18 tetracycline Allergy Unknown Unknown Verified 07/24/22 18:18 venlafaxine [From Effexor] Allergy Unknown Unknown Verified 07/24/22 18:18 gabapentin AdvReac Intermediate BECOMES Verified 07/24/22 18:18 AGGRESSIVE Consultations 07/24/22 17:58 ED Decision to Admit Stat 08/01/22 17:43 Consult Orthopedic Surgery Routine 08/10/22 11:39 Consult Nephrology Routine Hospital Course (1) Weakness: Weakness is 2nd to severe deconditioning due to prolonged immobilization/institutionalization and long admission at [facility]. PT/OT completed. Patient recommended for alf at this time.. Patient desires to go home patient states that her outpatient shoe parts caser is trying to arrange for certain devices at home these would include a ramp, a lift chair, wheelchair accessible front door and interior doors, drop side commode, patient currently has electric wheelchair but cannot fit into her home due to the size of the dorsal lack of ramp. CM found a rehab that is accepting but due to his distance from home and inability of her family to travel she is refusing. traffic coordinator helping to arrange her get wider doors/shower stall. Per case management note, retail service representative hoping to have REQUEST for home modifications submitted this week. Unfortunately, the improvements will not be completed prior to eligibility for discharge. Patient is aware. Until modifications can be made at home, patient will be discharged to [facility]. This is anticipated for tomorrow, Patient is aware. Rx for equipment for home provided to CM to safely care for pt at home given current situation with rx for motorized wheelchair, ramp, lift chair and dropped side toilet. Continue usual home medications on discharge with the exception of thyroid medication which has been increased. (2) Fracture of distal end of right femur: Seen by Dr. Su, indicates that femur fx is not healed and will likely not heal further * Cont NWB status to RLE * Transfer bed to wheelchair or chair and bedside commode with assistance of a walker * Needs SNF w/ rehab in order to get her to safely transfer Cont oxycodone 10mg po q8h prn, but mostly just takes prior to PT Cont voltaren gel 4gm QID to R knee scheduled Further management with outpatient orthopedics as outlined in discharge instructions (3) CKD (chronic kidney disease) stage 4, GFR 15-29 ml/min: Cr stable throughout this admission Cr baseline 1.4 to about 1.8 (4) Morbid obesity: BMI 56 needs weight loss, ?if able to consider Mounjaro vs Ozempic in future for additional weight loss/DM in future (5) Type 2 diabetes mellitus: HbA1c 8.9% pharmacy glycemic team managing her DM Had an insulin pump prior to admission - this is on hold Empagliflozin held Currently on lantus to 80u QAM, 75u QHS , continue SSI novolog Continued candy at bedside, non-compliance w/ carb consistent diet (6) Chronic respiratory failure: Stable. Probably predominantly OHS mediated Metal trach in place since 2007 - not interested in having this exchanged Follows with Fidelia WOODY (7) HTN (hypertension): HTN/CAD/Chronic diastolic CHF- Hemodynamically stable CHF compensated Continue Imdur, metoprolol, aldactone and torsemide (8) Wound, breast: right seen by Wound Care nurse earlier in the stay continue dressing changes as per wound care team (9) Hypothyroidism (acquired): TSH 08/18/22 mildly high Increased Levothyroxine dose to 225mcg from 200mcg once daily -- continue at d/c repeat TSH drawn on 09/04 but this was not 6 weeks from 08/18, would continue current dose and recheck in Mid September Plan DVT prophylaxis -- Lovenox 40mg BID while inpatient. CM aware of need for rx/retail service representative and they are to reach out today to see if arrangements truly able to be made Referral to [facility]. Patient accepted and auth Approved. She is medically stable for discharge. Total Time Total Time Spent Total Time Spent (In Minutes): 40 Discharge Plan Discharge Items Patient Disposition: Transfer Shelter Fac Reason For Visit: CHEST PAIN Discharge Diagnosis: nonhealing right femur fracture Activity: Resume your previous activity Activity Comment: Non-weight bearing to right leg Lifting: Gradually increase as tolerated Bathing: No limitations Exercise/Sports: As tolerated Weightbearing: Right non-weightbearing Non-emergency contact: Primary Care Provider Call non-emergency contact if: you have any medication questions Follow-up/Referrals: Ofe Mcgee MD [Primary Care Provider] - Diet: Carb Consistent or DM2 and Heart Healthy Addtl Attending Provider Instructions: Patient continues to be nonweightbearing in her right leg. Follow all instructions from orthopedics. Follow-up with Dr. Su. Your levothyroxine was increased this admission from 200 mcg once daily to 225 mcg daily. He should continue the medication with this new dose. You should follow-up in 6 to 8 weeks for labs to check your TSH. Addtl Business [employer] Report Developer Provider Instructions: Do not bear any weight on your right leg. Ice to right knee as needed Allowed out of bed to chair transfers, if tolerable. May bear weight as needed for transfers. Follow up with Dr. Su 4-6 weeks after discharge. Call [phone] to schedule appointment. Pending Studies at Discharge: No Stand-Alone Forms: My [facility] Skilled Items Patient informed of condition?: Yes DNR: No Discharge Level of Care: Skilled Communicable Disease: No Discharge Prognosis: Stable Lines: None Urinary Catheter: No Medications and DC Order Prescriptions: New isosorbide mononitrate 30 mg Tablet Extended Release 24 Hr 30 mg PO QAM Qty: 30 0RF levothyroxine [Synthroid] 75 mcg Tablet 225 mcg PO DAILYBB Qty: 30 0RF insulin glargine 100 unit/mL (3 mL) insulin pen 80 unit subcut BID Qty: 48 0RF oxycodone 5 mg Tablet 10 mg PO Q8H PRN (Reason: pain) Qty: 10 0RF Rx Instructions: continued therapy Continued (DME) Contour Next Test Strips Strip See Rx Instructions .ROUTE .MEDSUPPLY Qty: 300 3RF Rx Instructions: test blood sugar 3 x daily atorvastatin 40 mg tablet 40 mg PO QPM Qty: 90 1RF montelukast [Singulair] 10 mg tablet 10 mg PO QPM Qty: 30 5RF nitroglycerin 0.4 mg tablet, sublingual 0.4 mg SL DIRECTED PRN (Reason: Chest Pain) (DME) Oxygen Home Liters Per Minute See Dose Instructions .ROUTE .MEDSUPPLY Qty: 1 Rx Instructions: As directed (DME) nebulizers Misc See Rx Instructions miscellaneous .MEDSUPPLY Qty: 1 0RF Rx Instructions: High Volume Nebulizer Use with solution for breathing as directed. Lifetime need. lorazepam [Ativan] 1 mg tablet 1 mg PO Q8H PRN (Reason: Anxiety) aspirin [Robert Low Dose Aspirin] 81 mg Tablet,Delayed Release (Dr/Ec) 81 mg PO QAM bupropion HCl 100 mg Tablet Sustained-Release 12 Hr See Rx Instructions .ROUTE .COMPLEX Rx Instructions: 100 mg orally; TAKES 100 MG QAM, THEN 200 MG QPM. docusate sodium 100 mg Capsule 100 mg PO BID multivitamin Tablet 1 tab PO QAM spironolactone 25 mg Tablet 25 mg PO QAM pantoprazole 40 mg Tablet,Delayed Release (Dr/Ec) 40 mg PO QAM topiramate 100 mg Tablet See Rx Instructions .ROUTE .COMPLEX Rx Instructions: 100 MG ORALLY; TAKES 100 MG QAM, THEN 200 MG QHS metoprolol tartrate 25 mg Tablet 12.5 mg PO BID ipratropium-albuterol 0.5 mg-3 mg(2.5 mg base)/3 mL Solution For Nebulization 3 ml INHALATION Q4H PRN (Reason: COUGHING, WHEEZING, SHORTNESS OF BREATH) potassium chloride 10 mEq Tablet Extended Release 20 meq PO AMPM betamethasone dipropionate 0.05 % Cream 1 applic TOPICAL BID PRN (Reason: Skin Irritation) albuterol sulfate 90 mcg/actuation HFA aerosol inhaler 2 puff INHALATION Q4 PRN (Reason: Shortness Of Breath) Combivent Respimat 20-100 mcg/actuation Mist 1 puff INHALATION QID torsemide 10 mg tablet 10 mg PO BID Rx Instructions: TAKES QAM AND AFTERNOON folic acid 1 mg Tablet 1 mg PO QAM Qty: 0 0RF hydrogen peroxide 3 % Solution 1 applic TOPICAL DIRECTED PRN (Reason: TRACH CARE) acetaminophen [Tylenol Extra Strength] 500 mg Tablet 500 mg PO QPM acidophilus-pectin, citrus [Acidophilus Probiotic] 100 million cell-10 mg Capsule 1 cap PO DAILY Discontinued (DME) MiniMed 630G Insulin Pump Misc See Rx Instructions .ROUTE .MEDSUPPLY Qty: 1 Rx Instructions: As directed isosorbide mononitrate 60 mg Tablet Extended Release 24 Hr 60 mg PO QAM lisinopril 2.5 mg Tablet 2.5 mg PO QAM insulin lispro [Humalog U-100 Insulin] 100 unit/mL Solution 0 unit subcut USEASDIRECTD Rx Instructions: PER PT "REHAB REMOVED INSULIN PUMP, NOW DOING WITH MEALS, COVERAGE". Jardiance 25 mg tablet 25 mg PO DAILY levothyroxine 200 mcg tablet 200 mcg PO DAILYBB Discharge Orders: Discharge Order (Routine); Ordered 09/09/22 Ordered By: Jasper Velarde Admission Data Admit Date/Time: 07/25/22 13:28 Attending Provider: Surya Jaramillo Admit Provider: Patrick Mansfield Primary Care Provider: Ofe Mcgee Other Providers: [facility] ; [facility] ; [facility] ; Patrick Mansfield ; Solomon Su ; Sommer Soriano Coding Level of Care Code D/C DAY MANAGEMENT >30 MINS Diagnoses Weakness R53.1 Fracture of distal end of right femur S72.401A CKD (chronic kidney disease) stage 4, GFR 15-29 ml/min N18.4 Morbid obesity E66.01 Type 2 diabetes mellitus E11.9 Chronic respiratory failure J96.10 Respiratory failure complication: unspecified whether with hypoxia or hypercapnia HTN (hypertension) I10 Wound, breast S21.009A Hypothyroidism (acquired) E03.9
== END 2022-09-09 13:45 ==
LOC: 2E 15:56 → ED 15:56 → 2E 19:06 → SUATTDRO 07-25 13:28 → 3E 07-27 21:40
DX: Z79.890 Hormone replacement therapy; Z79.899 Other long term (current) drug therapy; S21.009A Unspecified open wound of unspecified breast, initial encounter; Z88.1 Allergy status to other antibiotic agents; I50.32 Chronic diastolic (congestive) heart failure; Z93.0 Tracheostomy status; E11.22 Type 2 diabetes mellitus with diabetic chronic kidney disease; I13.0 Hypertensive heart and chronic kidney disease with heart failure and stage 1 through stage 4 chronic kidney disease, or unspecified chronic kidney disease; Z88.0 Allergy status to penicillin; Z79.4 Long term (current) use of insulin; X58.XXXA Exposure to other specified factors, initial encounter; S72.401A Unspecified fracture of lower end of right femur, initial encounter for closed fracture; Z88.8 Allergy status to other drugs, medicaments and biological substances; J96.10 Chronic respiratory failure, unspecified whether with hypoxia or hypercapnia; E66.2 Morbid (severe) obesity with alveolar hypoventilation; I27.81 Cor pulmonale (chronic); Z79.82 Long term (current) use of aspirin; R53.1 Weakness; E03.9 Hypothyroidism, unspecified; Z68.43 Body mass index [BMI] 50.0-59.9, adult; Z86.14 Personal history of Methicillin resistant Staphylococcus aureus infection; N18.4 Chronic kidney disease, stage 4 (severe); Z99.81 Dependence on supplemental oxygen

== ENCOUNTER 2022-10-01 15:30 | Inpatient (IN) ==
[2022-10-01 16:03] LABS: Basophils # (auto) 0.05 K/uL (0-0.2); Basophils % (auto) 0.5 %; Eosinophils # (auto) 0.24 K/uL (0-0.50); Eosinophils % (auto) 2.4 %; Hematocrit (blood only) 38.2 % (34.1-44.9); Immature Granulocytes # (auto) 0.07 K/uL (0.00-0.02); Immature Granulocytes % (auto) 0.7 %; Lymphocytes # (auto) 1.75 K/uL (1.2-3.4); Lymphocytes % (auto) 17.3 %; Mean Corpuscular Hemoglobin 28.8 pg (25.0-34.0); Mean Corpuscular Hgb Conc 31.4 g/dL (32.0-36.0); Mean Corpuscular Volume 91.6 fL (80.0-100.0); Mean Platelet Volume 9.8 fL (9.4-12.3); Monocytes # (auto) 0.63 K/uL (0.24-0.82); Monocytes % (auto) 6.2 %; Neutrophils # (auto) 7.36 K/uL (1.4-6.5); Neutrophils % (auto) 72.9 %; Platelet Count 272 K/uL (130-400); RDW Coefficient of Variation 14.2 % (11.5-14.5); RDW Standard Deviation 48.2 fL (36.4-46.3); Red Blood Count 4.17 M/uL (3.93-5.22)
[2022-10-01 16:29] LABS: Troponin I High Sensitivity 5.5 pg/ml (0-14)
[2022-10-01 16:32] LABS: Alanine Aminotransferase 12 U/L (7-52); Albumin Globulin Ratio 0.9 (0.9-2); Albumin Level 3.5 gm/dl (3.4-5.0); Alkaline Phosphatase 83 U/L (34-104); Anion Gap 9 (3-11); Aspartate Aminotransferase 15 U/L (13-39); BUN Creatinine Ratio 16.5 (10-20); Bilirubin,Total 0.3 mg/dl (0.2-1.0); Blood Urea Nitrogen 26 mg/dl (6-23); Carbon Dioxide 24 mmol/L (21-32); Chloride 104 mmol/L (98-107); Est GFR (African American) 39.1 ml/min; Est GFR (Non-African American) 33.7 ml/min; Globulin 3.8 gm/dl (2.5-4.0); Glucose 173 mg/dl (70-99(Fasting)); Lipase 35 U/L (11-82); Potassium 4.1 mmol/L (3.5-5.1); Sodium 137 mmol/L (136-145); Total Protein 7.3 gm/dl (6.0-8.3)
--- NOTE | 2022-10-01 16:49 | XRay Report ---
XR chest 1V portable CLINICAL HISTORY: Chest Pain TECHNIQUE: Single frontal radiograph of the chest was obtained. Comparison: Comparison is made to chest radiograph 07/24/2022 FINDINGS: Exam is limited by underpenetration. Tracheostomy tube is seen. Cardiomegaly is noted. The lungs are clear. No evidence of pleural effusion or pneumothorax. IMPRESSION: No acute chest disease. Cardiomegaly is noted. ACT 112: Negative or not required by law. Electronically signed by: Layo Cutler M.D. 10/01/2022 4:47 PM
[2022-10-01] MEDS ORDERED: FUROSEMIDE INJ 20 MG/2 ML VIAL IV ONE (19:03)
[2022-10-01 19:23] LABS: Appearance Urine Clear (Clear); Bilirubin Urine Negative (Negative); Blood Urine Negative (Negative); Color Urine Yellow; Glucose Urine UA Negative (Negative); Ketones Urine Negative (Negative); Leukocyte Esterase Urine Negative (Negative); Nitrite Urine Negative (Negative); Protein Urine Negative (Negative); Specific Gravity Urine 1.015 (1.000-1.030); Urobilinogen Urine Negative (Negative)
[2022-10-01] MEDS ORDERED: ALBUTEROL HFA 8 GM INHALER INH ONE (19:42)
[2022-10-01] MEDS ORDERED: ONDANSETRON INJ 2 MG/ML 2 ML VIAL IV PRN (20:08)
[2022-10-01] MEDS ORDERED: CARBOHYDRATES FOR HYPOGLYCEMIA PO PRN (20:08)
[2022-10-01] MEDS ORDERED: GLUCOSE 10 TAB/TUBE PO PRN (20:08)
[2022-10-01] MEDS ORDERED: GLUCOSE 40% GEL 15 GM TUBE PO PRN (20:08)
[2022-10-01] MEDS ORDERED: GLUCAGON FOR INJ 1 MG VIAL SQ PRN (20:08)
[2022-10-01] MEDS ORDERED: DEXTROSE 50% 50 ML SYRINGE IV PRN (20:08)
[2022-10-01] MEDS ORDERED: ALBUTEROL HFA 8 GM INHALER INH PRN (20:13)
[2022-10-01] MEDS ORDERED: NITROGLYCERIN SL 0.4 MG/TAB TAB SL PRN (20:13)
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
[2022-10-01] MEDS ORDERED: IPRATROPIUM BROMIDE/ALBUTEROL respimat INH INH SCH (21:00)
[2022-10-01] MEDS ORDERED: LANTUS PER UNIT CHARGE SQ SCH (21:00)
[2022-10-01] MEDS ORDERED: SULFAMETHOXAZOLE/TRIMETHOPRIM DS 800/160MG TAB PO SCH (21:00)
[2022-10-01] MEDS ORDERED: DAPTOmycin 375 MG in SYRINGE 0 ML IV SCH (22:00)
[2022-10-01] MEDS: DOCUSATE SODIUM 100 MG CAP PO SCH (22:47)
[2022-10-01] MEDS: POTASSIUM CHLORIDE CRTAB 20 MEQ TABCR PO SCH (22:48)
[2022-10-01] MEDS: METOPROLOL TARTRATE 25 MG TAB PO SCH (22:48)
[2022-10-01] MEDS: TOPIRAMATE 100 MG TAB PO SCH (22:49)
[2022-10-01] MEDS: INSULIN ASPART PER UNIT SC SCH (22:50)
[2022-10-01] MEDS: LANTUS PER UNIT CHARGE SQ SCH (22:51)
[2022-10-01] MEDS: HEPARIN SOD 5,000 UNIT/0.5 ML VIAL SQ SCH (23:09)
[2022-10-01] MEDS: buPROPion SR 100 MG TABCR PO SCH (23:09)
[2022-10-01] MEDS: TORSEMIDE 10 MG TAB PO SCH (23:09)
[2022-10-02] MEDS ORDERED: INFLUENZA VACCINE HIGH DOSE PF 65+ 0.7 ML SYR IM ONE (00:57)
[2022-10-02] MEDS: TORSEMIDE 10 MG TAB PO SCH ×2 (06:02→14:26)
[2022-10-02] MEDS: PANTOprazole 40 MG TAB PO SCH (06:03)
[2022-10-02] MEDS: HEPARIN SOD 5,000 UNIT/0.5 ML VIAL SQ SCH ×3 (06:03→21:46)
[2022-10-02] MEDS: LEVOTHYROXINE SODIUM 200 MCG TABLET PO SCH (06:03)
[2022-10-02] MEDS: LEVOTHYROXINE SODIUM 25 MCG TABLET PO SCH (06:03)
[2022-10-02 06:41] LABS: Hematocrit (blood only) 35.4 % (34.1-44.9); Mean Corpuscular Hemoglobin 28.8 pg (25.0-34.0); Mean Corpuscular Hgb Conc 31.1 g/dL (32.0-36.0); Mean Corpuscular Volume 92.7 fL (80.0-100.0); Mean Platelet Volume 9.8 fL (9.4-12.3); Platelet Count 239 K/uL (130-400); RDW Coefficient of Variation 14.4 % (11.5-14.5); RDW Standard Deviation 48.7 fL (36.4-46.3); Red Blood Count 3.82 M/uL (3.93-5.22); White Blood Count 7.86 K/ul (4.8-10.8)
[2022-10-02 06:58] LABS: BUN Creatinine Ratio 14.6 (10-20); Calcium 8.8 mg/dl (8.5-10.1); Creatinine Clr Calc Pharmacy 50.6 ml/min; Est GFR (African American) 39.4 ml/min; Potassium 3.9 mmol/L (3.5-5.1)
[2022-10-02] MEDS: Albuterol HFA 8 GM Inhaler (Combivent Respimat P&T Subs) INH SCH ×2 (07:41→11:02)
[2022-10-02] MEDS: Ipratropium HFA Inhaler (Combivent Respimat P&T Subs) INH SCH ×2 (07:42→11:02)
--- NOTE | 2022-10-02 08:02 | Electrocardiogram Report ---
Test Reason : Blood Pressure : / mmHG Vent. Rate : 075 BPM Atrial Rate : 075 BPM P-R Int : 216 ms QRS Dur : 136 ms QT Int : 402 ms P-R-T Axes : 044 -41 010 degrees QTc Int : 448 ms Sinus rhythm with 1st degree A-V block Left axis deviation Right bundle branch block Nondiagnostic lateral Q waves Abnormal ECG When compared with ECG of 24-JUL-2022 19:58, No significant change was found Confirmed by Gorge Kaur ([id number]) on 10/02/2022 8:02:00 AM Referred By: REFERRED SELF Confirmed By:Gorge Kaur
[2022-10-02] MEDS: INSULIN ASPART PER UNIT SC SCH ×4 (08:17→21:41)
[2022-10-02] MEDS: LANTUS PER UNIT CHARGE SQ SCH ×2 (08:21→21:41)
[2022-10-02] MEDS: METOPROLOL TARTRATE 25 MG TAB PO SCH ×2 (08:24→21:43)
[2022-10-02] MEDS: MAGNESIUM OXIDE 400 MG TAB PO SCH (08:24)
[2022-10-02] MEDS: ISOSORBIDE MONO EXTENDED REL 30 MG TABCR PO SCH (08:24)
[2022-10-02] MEDS: ASPIRIN 81 MG ECTAB PO SCH (08:24)
[2022-10-02] MEDS: FOLIC ACID 1 MG TAB PO SCH (08:24)
[2022-10-02] MEDS: DOCUSATE SODIUM 100 MG CAP PO SCH ×2 (08:24→21:44)
[2022-10-02] MEDS: buPROPion SR 100 MG TABCR PO SCH ×2 (08:24→21:45)
[2022-10-02] MEDS: TOPIRAMATE 100 MG TAB PO SCH ×2 (08:25→21:42)
[2022-10-02] MEDS: POTASSIUM CHLORIDE CRTAB 20 MEQ TABCR PO SCH ×2 (08:25→21:43)
[2022-10-02] MEDS: MULTIVITAMIN TAB PO SCH (08:25)
[2022-10-02] MEDS: SPIRONOLACTONE 25 MG TAB PO SCH (08:25)
[2022-10-02] MEDS: oxyCODONE HCL IR 5 MG TAB (IMMEDIATE RELEASE) PO PRN ×2 (08:42→18:14)
[2022-10-02] MEDS ORDERED: NON-FORMULARY MEDICATION (Acidophilus-Pectin, Citrus 100 million cell-10 mg Capsule) PO SCH (09:00)
--- NOTE | 2022-10-02 10:12 | XCELERA ---
[id number]
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
[2022-10-02] MEDS: SULFAMETHOXAZOLE/TRIMETHOPRIM DS 800/160MG TAB PO SCH ×2 (14:24→21:42)
[2022-10-02] MEDS: ACETAMINOPHEN 325 MG TAB PO PRN (14:24)
[2022-10-02] MEDS ORDERED: ALBUT/IPRATROP 3MG/0.5MG NEB 3 ML VIAL NEB SCH (15:00)
[2022-10-02] MEDS: ALBUT/IPRATROP 3MG/0.5MG NEB 3 ML VIAL NEB PRN ×3 (15:43→22:32)
[2022-10-02] MEDS: ALBUTEROL HFA 8 GM INHALER INH SCH ×2 (15:44→19:11)
[2022-10-02] MEDS: IPRATROPIUM BROMIDE HFA INHALER INH SCH (19:10)
--- NOTE | 2022-10-02 19:52 | Billing Data ---
Date of Service October 02, 2022 Coding Level of Care Code 06480 Initial Inpt Care Lvl 3
[2022-10-02] MEDS: ATORVASTATIN 40 MG TAB PO SCH (22:20)
[2022-10-03] MEDS: ACETAMINOPHEN 325 MG TAB PO PRN ×3 (00:28→13:15)
[2022-10-03] MEDS: ALBUTEROL HFA 8 GM INHALER INH SCH ×4 (06:00→19:40)
[2022-10-03] MEDS: ALBUT/IPRATROP 3MG/0.5MG NEB 3 ML VIAL NEB PRN ×4 (06:01→22:21)
[2022-10-03] MEDS: IPRATROPIUM BROMIDE HFA INHALER INH SCH ×4 (06:01→19:40)
[2022-10-03] MEDS: PANTOprazole 40 MG TAB PO SCH (06:12)
[2022-10-03] MEDS: TORSEMIDE 10 MG TAB PO SCH ×2 (06:13→16:16)
[2022-10-03] MEDS: LEVOTHYROXINE SODIUM 25 MCG TABLET PO SCH (06:13)
[2022-10-03] MEDS: HEPARIN SOD 5,000 UNIT/0.5 ML VIAL SQ SCH ×3 (06:13→22:00)
[2022-10-03] MEDS: LEVOTHYROXINE SODIUM 200 MCG TABLET PO SCH (06:13)
[2022-10-03] MEDS: DOCUSATE SODIUM 100 MG CAP PO SCH ×2 (09:49→21:58)
[2022-10-03] MEDS: METOPROLOL TARTRATE 25 MG TAB PO SCH ×2 (09:49→22:43)
[2022-10-03] MEDS: ASPIRIN 81 MG ECTAB PO SCH (09:51)
[2022-10-03] MEDS: TOPIRAMATE 100 MG TAB PO SCH ×2 (09:51→21:57)
[2022-10-03] MEDS: buPROPion SR 100 MG TABCR PO SCH ×2 (09:51→21:57)
[2022-10-03] MEDS: FOLIC ACID 1 MG TAB PO SCH (09:51)
[2022-10-03] MEDS: SULFAMETHOXAZOLE/TRIMETHOPRIM DS 800/160MG TAB PO SCH ×2 (09:51→21:59)
[2022-10-03] MEDS: POTASSIUM CHLORIDE CRTAB 20 MEQ TABCR PO SCH ×2 (09:51→21:58)
[2022-10-03] MEDS: ISOSORBIDE MONO EXTENDED REL 30 MG TABCR PO SCH (09:51)
[2022-10-03] MEDS: MULTIVITAMIN TAB PO SCH (09:51)
[2022-10-03] MEDS: MAGNESIUM OXIDE 400 MG TAB PO SCH (09:51)
[2022-10-03] MEDS: SPIRONOLACTONE 25 MG TAB PO SCH (09:51)
[2022-10-03] MEDS: LANTUS PER UNIT CHARGE SQ SCH ×2 (09:55→21:58)
[2022-10-03] MEDS: INSULIN ASPART PER UNIT SC SCH ×4 (09:56→22:32)
[2022-10-03] MEDS: oxyCODONE HCL IR 5 MG TAB (IMMEDIATE RELEASE) PO PRN (10:05)
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
[2022-10-03] MEDS: POLYETHYLENE (MIRALAX) 17 GM PACK PO PRN (13:15)
[2022-10-03] MEDS: ATORVASTATIN 40 MG TAB PO SCH (21:58)
[2022-10-04] MEDS: ALBUT/IPRATROP 3MG/0.5MG NEB 3 ML VIAL NEB PRN ×3 (05:43→19:27)
[2022-10-04] MEDS: HEPARIN SOD 5,000 UNIT/0.5 ML VIAL SQ SCH ×3 (05:52→21:10)
[2022-10-04] MEDS: LEVOTHYROXINE SODIUM 200 MCG TABLET PO SCH (05:52)
[2022-10-04] MEDS: LEVOTHYROXINE SODIUM 25 MCG TABLET PO SCH (05:52)
[2022-10-04] MEDS: PANTOprazole 40 MG TAB PO SCH (05:55)
[2022-10-04] MEDS: TORSEMIDE 10 MG TAB PO SCH ×2 (05:55→16:01)
[2022-10-04] MEDS: IPRATROPIUM BROMIDE HFA INHALER INH SCH ×4 (07:43→18:09)
[2022-10-04] MEDS: ALBUTEROL HFA 8 GM INHALER INH SCH ×4 (07:44→18:09)
--- NOTE | 2022-10-04 08:39 | Hospitalist Progress Note ---
Date of Service October 04, 2022 Assessment & Plan (1) SOB (shortness of breath): Plan: - Acute on Chronic related to COPD, OHS, RASHAAD, CHF - Continue meds - Resume prn Duonebs and inhalers - Add Mucomyst - Requested chest compression device, will utilize BID - Add Solu-medrol 40mg q8 (2) Atypical chest pain: Plan: - vitals stable on admit, pulse ox 94% room air - Troponin negative x2 - CXR:No acute chest disease. Cardiomegaly is noted. - EKG: unchanged from previous - No further c/o CP and w/u unremarkable - d/c'd tele 10/02, now on med/surg issue has resolved (3) Cellulitis: Plan: Concern Cellulitis (mild) of RLE - CBC wnl - noted erythema and pain on palpation on b/l LE with 1 open skin lesion on right leg consistent with skin picking - received 1 day bactrim at [facility] - Changed by admitting resident to Daptomycin, discontinued and resumed oral Bactrim on 10/02 - No evidence of cellulitis at this time, complete 7 day course of abx (4) Weakness: Plan: - Related to morbid obesity and chronic R femur fx - PT/OT - Case management for complex dc issues (5) Fracture of distal end of right femur: Plan: - Chronic, NWB to RLE - PT/OT - Pain control (6) Hypothyroidism (acquired): Plan: - Continue Levothyroxine, recent increased from 200mcg daily to 225mcg (7) CKD stage 4 due to type 2 diabetes mellitus: Plan: -Creat 1.58 (baseline 1.3-1.8) (8) GERD (gastroesophageal reflux disease): Plan: -Continue protonix (9) Insulin-requiring or dependent type II diabetes mellitus: Plan: -SSI -glargine 80U BID (10) Anxiety: Plan: -Resume home meds (11) Chronic diastolic congestive heart failure: Plan: - noted 15kg weight gain since 09/09 - received lasix 20mg IV in ED - echo 2020 EF 55-60% - continue torsemide, spironolactone, metoprolol, isosorbide mononitrate, ASA, atorvastatin - ordered repeat echo--EF 45-50% but otherwise no significant changes from prior exam - ordered daily weights - presently diuresing on oral regimen, will not order IV diuresis (12) Morbid obesity with BMI of 60.0-69.9, adult: Plan: - weight loss advised given that it is the root cause of many of her medical issues Plan PT/OT. Case management consult for complex dc needs. Medically stable for dc but patient is refusing to return to [facility]. Plan d/w Dr. Jensen. Admission and Anticipated Discharge Date Admission Date: October 01, 2022 Subjective Patient seen on daily rounds this morning. She is currently complaining of shortness of breath and wheezing. Received a duoneb this AM. States she cannot take Mucinex as she can't swallow the pills. Feels like she has mucus that she needs to cough up but can't. Review of Systems Review of Systems: All systems reviewed and are unremarkable except as noted in HPI and below. Denies fever, chills, fatigue, headache, nasal congestion, sore throat, cough, chest pain, palpitations, orthopnea, PND, abdominal pain, n/v/d, constipation, dysuria, hematuria, frequency, back pain, joint pain or swelling, easy bruising or bleeding. Physical Exam Physical Exam: GENERAL: 67 yo Well-developed, well-nourished morbidly obese WF. NAD NECK: metal trach noted LUNGS: Clear to auscultation bilaterally. No W/R/R. CARDIOVASCULAR: Regular rate and rhythm. ABDOMEN: Soft, non-tender and non-distended. BS normoactive x 4 quad. EXTREMITIES: Trace edema. Non-tender. Peripheral pulses +2/4. NEUROLOGIC: A&O x3. Nonfocal PSYCHIATRIC: Cooperative. Appropriate mood and affect. SKIN: Warm, dry, intact. multiple excoriations to RLE and small nickel size open lesion LLE Results & Data Results & Data ([facility]) Vital Signs (Past 12 Hours) Vital Signs Temp Pulse Resp BP Pulse Ox O2 Del Method 10/04/22 07:40 Room Air 10/04/22 07:47 18 95 Room Air 10/04/22 05:56 68 117/60 10/04/22 05:46 68 24 95 Room Air 10/03/22 21:00 Room Air 10/03/22 22:21 80 24 96 Room Air 10/03/22 20:48 36.8 C 77 20 120/62 93 Trach Collar PG Care Time/CCT Total # of Minutes Spent Total Time Spent with Patient: Total time spent is greater than 50% in coordination of care (as documented) at patient's floor/unit and/or counseling patient: Coding Level of Care Code 36729 Subseq Hosp Care Lvl 2 Diagnoses SOB (shortness of breath) R06.02 Atypical chest pain R07.89 Cellulitis L03.90 Weakness R53.1 Fracture of distal end of right femur S72.401A Hypothyroidism (acquired) E03.9 CKD stage 4 due to type 2 diabetes mellitus E11.22; N18.4 GERD (gastroesophageal reflux disease) K21.9 Insulin-requiring or dependent type II diabetes mellitus E11.9; Z79.4 Anxiety F41.9 Chronic diastolic congestive heart failure I50.32 Morbid obesity with BMI of 60.0-69.9, adult E66.01; Z68.44
[2022-10-04] MEDS: SPIRONOLACTONE 25 MG TAB PO SCH (08:42)
[2022-10-04] MEDS: buPROPion SR 100 MG TABCR PO SCH ×2 (08:42→21:05)
[2022-10-04] MEDS: TOPIRAMATE 100 MG TAB PO SCH ×2 (08:42→21:05)
[2022-10-04] MEDS: DOCUSATE SODIUM 100 MG CAP PO SCH ×2 (08:42→21:21)
[2022-10-04] MEDS: ISOSORBIDE MONO EXTENDED REL 30 MG TABCR PO SCH (08:42)
[2022-10-04] MEDS: POTASSIUM CHLORIDE CRTAB 20 MEQ TABCR PO SCH ×2 (08:42→21:09)
[2022-10-04] MEDS: ASPIRIN 81 MG ECTAB PO SCH (08:42)
[2022-10-04] MEDS: MULTIVITAMIN TAB PO SCH (08:43)
[2022-10-04] MEDS: METOPROLOL TARTRATE 25 MG TAB PO SCH ×2 (08:43→21:08)
[2022-10-04] MEDS: MAGNESIUM OXIDE 400 MG TAB PO SCH (08:44)
[2022-10-04] MEDS: FOLIC ACID 1 MG TAB PO SCH (08:44)
[2022-10-04] MEDS: SULFAMETHOXAZOLE/TRIMETHOPRIM DS 800/160MG TAB PO SCH ×2 (08:45→21:04)
[2022-10-04] MEDS: POLYETHYLENE (MIRALAX) 17 GM PACK PO PRN (08:49)
[2022-10-04] MEDS: INSULIN ASPART PER UNIT SC SCH ×4 (09:15→21:21)
[2022-10-04] MEDS: LANTUS PER UNIT CHARGE SQ SCH ×2 (09:16→21:20)
[2022-10-04] MEDS: methylPREDNISolone 40 MG in SYRINGE 0 ML IV SCH ×2 (13:01→18:10)
[2022-10-04] MEDS ORDERED: ACETYLCYSTEINE 20% INHAL SOLN 4ML ***DISPENSED BY RESP. INH SCH (19:00)
[2022-10-04] MEDS: ATORVASTATIN 40 MG TAB PO SCH (21:06)
[2022-10-04] MEDS: guaiFENesin 600 MG TABCR PO SCH (21:06)
[2022-10-04] MEDS ORDERED: INSULIN ASPART PER UNIT SC STA (23:40)
[2022-10-05] MEDS ORDERED: INSULIN ASPART PER UNIT SC STA (02:24)
[2022-10-05] MEDS ORDERED: PHARMACY GLYCEMIC MGMT CONSULT PRN (02:39)
[2022-10-05] MEDS: methylPREDNISolone 40 MG in SYRINGE 0 ML IV SCH ×2 (02:55→12:06)
[2022-10-05] MEDS: HEPARIN SOD 5,000 UNIT/0.5 ML VIAL SQ SCH ×3 (05:54→21:46)
[2022-10-05] MEDS: TORSEMIDE 10 MG TAB PO SCH ×2 (05:55→15:57)
[2022-10-05] MEDS: LEVOTHYROXINE SODIUM 25 MCG TABLET PO SCH (05:55)
[2022-10-05] MEDS: PANTOprazole 40 MG TAB PO SCH (05:55)
[2022-10-05] MEDS: LEVOTHYROXINE SODIUM 200 MCG TABLET PO SCH (05:55)
[2022-10-05] MEDS: ALBUT/IPRATROP 3MG/0.5MG NEB 3 ML VIAL NEB PRN ×4 (06:59→19:13)
[2022-10-05] MEDS: IPRATROPIUM BROMIDE HFA INHALER INH SCH ×4 (07:00→20:25)
[2022-10-05] MEDS: ALBUTEROL HFA 8 GM INHALER INH SCH ×4 (07:00→20:25)
[2022-10-05] MEDS: ASPIRIN 81 MG ECTAB PO SCH (08:21)
[2022-10-05] MEDS: SULFAMETHOXAZOLE/TRIMETHOPRIM DS 800/160MG TAB PO SCH ×2 (08:22→20:26)
[2022-10-05] MEDS: METOPROLOL TARTRATE 25 MG TAB PO SCH ×2 (08:22→20:27)
[2022-10-05] MEDS: MAGNESIUM OXIDE 400 MG TAB PO SCH (08:23)
[2022-10-05] MEDS: ISOSORBIDE MONO EXTENDED REL 30 MG TABCR PO SCH (08:23)
[2022-10-05] MEDS: buPROPion SR 100 MG TABCR PO SCH ×2 (08:23→20:25)
[2022-10-05] MEDS: guaiFENesin 600 MG TABCR PO SCH ×2 (08:23→20:33)
[2022-10-05] MEDS: SPIRONOLACTONE 25 MG TAB PO SCH (08:23)
[2022-10-05] MEDS: TOPIRAMATE 100 MG TAB PO SCH ×2 (08:23→20:26)
[2022-10-05] MEDS: FOLIC ACID 1 MG TAB PO SCH (08:23)
[2022-10-05] MEDS: MULTIVITAMIN TAB PO SCH (08:23)
[2022-10-05] MEDS: INSULIN ASPART PER UNIT SC SCH ×4 (09:09→20:39)
[2022-10-05] MEDS: LANTUS PER UNIT CHARGE SQ SCH (09:19)
[2022-10-05] MEDS: DOCUSATE SODIUM 100 MG CAP PO SCH ×2 (09:52→20:31)
[2022-10-05] MEDS: POTASSIUM CHLORIDE CRTAB 20 MEQ TABCR PO SCH ×2 (09:52→20:31)
--- NOTE | 2022-10-05 10:49 | Pharmacy Report ---
Pharmacy Glycemic Short Note 2 - Date of Service October 05, 2022 - Glycemic Short BSG Results (Last 24 hours): 10/04/22 10/04/22 10/04/22 12:03 17:02 21:09 POC Glucose 115 H 208 H 326 H* 10/04/22 10/04/22 10/05/22 21:11 23:00 02:14 POC Glucose 308 H* 323 H* 255 H 10/05/22 10/05/22 05:02 08:17 POC Glucose 152 H 155 H OUTPATIENT ANTIDIABETIC REGIMEN: * Lantus 80 units BID * Humalog scale * HbA1C = 8.9% (07/25/22) ASSESSMENT: * Ms Connelly is a 67 y/o F with a PMH of T2DM who presents with chest pain. She is very familiar to the glycemic service as during her past admission. During that admission, patient was very stable on Lantus 80 units BID plus Novolog CF 5 CR 1. * This admission, patient was started on Lantus 80 units BID plus Novolog CF 30 CR 9. Patient has been stable, if not with lower BSGs on this. (BSGs of 87-484-011-86 mg/dL on 10/03/22) * Yesterday, Solu-Medrol 40 mg IV q8 was started and BSGs trended upwards to 308 by the end of the day. She received 196 units of insulin yesterday (160 of basal and 36 units of bolus). This is in comparison to last admission when patient received consistently about 350 units of insulin. * Fasting today is 155 mg/dL. Patient is very basal heavy with the above regimen. Will give Lantus 80 units this AM then reduce basal by 20% to 60 units BID. * Due to steroids, will tighten Novolog significantly. Will not be as tight as last admission since the patient's glycemic needs do not appear to be as large. This may need to be loosened later if proves too aggressive at lunch. PLAN FOR INPATIENT GLYCEMIC CONTROL: * Basal insulin * Lantus 80 units SQ x 1 then 60 units SQ BID * Bolus insulin * NovoLog per scale ACHS or Q6hrs while NPO * Goal Range: Low 110 mg/dL - High 140 mg/dL * Correction Factor: 8 mg/dL/unit * Nutritional / Prandial insulin per carb ratio of 1 unit per 2 grams CHO consumed
--- NOTE | 2022-10-05 11:24 | Hospitalist Progress Note ---
Date of Service October 05, 2022 Assessment & Plan (1) SOB (shortness of breath): Plan: - Acute on Chronic related to COPD, OHS, RASHAAD, CHF - Continue meds - Resume prn Duonebs and inhalers - Added Mucomyst but then pt refused, ordered Mucinex - Requested chest percussion device, utilize BID - Add Solu-medrol 40mg q8 --> changed to start Prednisone 40mg on 10/06 (2) Atypical chest pain: Plan: - vitals stable on admit, pulse ox 94% room air - Troponin negative x2 - CXR:No acute chest disease. Cardiomegaly is noted. - EKG: unchanged from previous - No further c/o CP and w/u unremarkable - d/c'd tele 10/02, now on med/surg issue has resolved (3) Cellulitis: Plan: Concern Cellulitis (mild) of RLE - CBC wnl - noted erythema and pain on palpation on b/l LE with 1 open skin lesion on right leg consistent with skin picking - received 1 day bactrim at [facility] - Changed by admitting resident to Daptomycin, discontinued and resumed oral Bactrim on 10/02 - No evidence of cellulitis at this time, complete 7 day course of abx (4) Weakness: Plan: - Related to morbid obesity and chronic R femur fx - PT/OT - Case management for complex dc issues (5) Fracture of distal end of right femur: Plan: - Chronic, NWB to RLE - PT/OT - Pain control (6) Hypothyroidism (acquired): Plan: - Continue Levothyroxine, recent increased from 200mcg daily to 225mcg (7) CKD stage 4 due to type 2 diabetes mellitus: Plan: - Creat at baseline (8) GERD (gastroesophageal reflux disease): Plan: - Continue protonix (9) Insulin-requiring or dependent type II diabetes mellitus: Plan: - SSI - glargine 80U BID (10) Anxiety: Plan: -Resume home meds (11) Chronic diastolic congestive heart failure: Plan: - noted 15kg weight gain since 09/09 - received lasix 20mg IV in ED - echo 2020 EF 55-60% - continue torsemide, spironolactone, metoprolol, isosorbide mononitrate, ASA, atorvastatin - ordered repeat echo--EF 45-50% but otherwise no significant changes from prior exam - ordered daily weights - presently diuresing on oral regimen, will not order IV diuresis (12) Morbid obesity with BMI of 60.0-69.9, adult: Plan: - weight loss advised given that it is the root cause of many of her medical issues Plan PT/OT. Case management consult for complex dc needs. Medically stable for dc but patient is refusing to return to [facility]. Plan d/w Dr. Jensen. Admission and Anticipated Discharge Date Admission Date: October 01, 2022 Subjective Patient seen on daily rounds this morning. Only complaint is why she couldn't get vaughn with her breakfast this morning. She mentions that her breathing has improved. She feels that the percussion vest is helping and she is now able to cough up mucus. She is able to get the mucinex pills down. Denies cp. Review of Systems Review of Systems: All systems reviewed and are unremarkable except as noted in HPI and below. Denies fever, chills, fatigue, headache, nasal congestion, sore throat, shortness of breath, chest pain, palpitations, orthopnea, PND, abdominal pain, n/v/d, constipation, dysuria, hematuria, frequency, back pain, joint pain or swelling, easy bruising or bleeding. Physical Exam Physical Exam: GENERAL: 67 yo Well-developed, well-nourished morbidly obese WF. NAD NECK: metal trach noted LUNGS: Clear to auscultation bilaterally. No W/R/R. CARDIOVASCULAR: Regular rate and rhythm. ABDOMEN: Soft, non-tender and non-distended. BS normoactive x 4 quad. EXTREMITIES: Trace edema. Non-tender. Peripheral pulses +2/4. NEUROLOGIC: A&O x3. Nonfocal PSYCHIATRIC: Cooperative. Appropriate mood and affect. SKIN: Warm, dry, intact. multiple excoriations to RLE and small nickel size open lesion LLE Results & Data Results & Data ([facility]) Vital Signs (Past 12 Hours) Vital Signs Temp Pulse Resp BP Pulse Ox O2 Del Method O2 Flow Rate 10/05/22 07:30 36.9 C 76 18 113/67 93 Room Air 10/05/22 07:00 74 20 98 Trach Collar 12 10/05/22 05:51 124/67 FiO2 10/05/22 07:30 10/05/22 07:00 28 10/05/22 05:51 PG Care Time/CCT Total # of Minutes Spent Total Time Spent with Patient: Total time spent is greater than 50% in coordination of care (as documented) at patient's floor/unit and/or counseling patient: Coding Level of Care Code 23524 Subseq Hosp Care Lvl 2 Diagnoses SOB (shortness of breath) R06.02 Atypical chest pain R07.89 Cellulitis L03.90 Weakness R53.1 Fracture of distal end of right femur S72.401A Hypothyroidism (acquired) E03.9 CKD stage 4 due to type 2 diabetes mellitus E11.22; N18.4 GERD (gastroesophageal reflux disease) K21.9 Insulin-requiring or dependent type II diabetes mellitus E11.9; Z79.4 Anxiety F41.9 Chronic diastolic congestive heart failure I50.32 Morbid obesity with BMI of 60.0-69.9, adult E66.01; Z68.44
[2022-10-05] MEDS: oxyCODONE HCL IR 5 MG TAB (IMMEDIATE RELEASE) PO PRN (13:32)
[2022-10-05] MEDS: ATORVASTATIN 40 MG TAB PO SCH (20:29)
[2022-10-05] MEDS ORDERED: LANTUS PER UNIT CHARGE SQ SCH (21:00)
[2022-10-06] MEDS: oxyCODONE HCL IR 5 MG TAB (IMMEDIATE RELEASE) PO PRN ×3 (00:18→21:59)
[2022-10-06] MEDS: PANTOprazole 40 MG TAB PO SCH (05:43)
[2022-10-06] MEDS: LEVOTHYROXINE SODIUM 25 MCG TABLET PO SCH (05:43)
[2022-10-06] MEDS: LEVOTHYROXINE SODIUM 200 MCG TABLET PO SCH (05:43)
[2022-10-06] MEDS: HEPARIN SOD 5,000 UNIT/0.5 ML VIAL SQ SCH ×3 (05:43→21:56)
[2022-10-06] MEDS: TORSEMIDE 10 MG TAB PO SCH ×2 (06:29→15:08)
[2022-10-06] MEDS: ALBUT/IPRATROP 3MG/0.5MG NEB 3 ML VIAL NEB PRN ×4 (07:34→19:30)
[2022-10-06] MEDS: IPRATROPIUM BROMIDE HFA INHALER INH SCH ×4 (07:34→19:32)
[2022-10-06] MEDS: ALBUTEROL HFA 8 GM INHALER INH SCH ×4 (07:34→19:32)
[2022-10-06] MEDS: guaiFENesin 600 MG TABCR PO SCH (08:59)
[2022-10-06] MEDS: INSULIN ASPART PER UNIT SC SCH ×4 (09:04→21:18)
[2022-10-06] MEDS: LANTUS PER UNIT CHARGE SQ SCH ×2 (09:04→21:19)
[2022-10-06] MEDS: ISOSORBIDE MONO EXTENDED REL 30 MG TABCR PO SCH (09:09)
[2022-10-06] MEDS: FOLIC ACID 1 MG TAB PO SCH (09:09)
[2022-10-06] MEDS: buPROPion SR 100 MG TABCR PO SCH ×2 (09:09→21:54)
[2022-10-06] MEDS: ASPIRIN 81 MG ECTAB PO SCH (09:09)
[2022-10-06] MEDS: MAGNESIUM OXIDE 400 MG TAB PO SCH (09:10)
[2022-10-06] MEDS: MULTIVITAMIN TAB PO SCH (09:10)
[2022-10-06] MEDS: SPIRONOLACTONE 25 MG TAB PO SCH (09:10)
[2022-10-06] MEDS: predniSONE 20 MG TAB PO SCH (09:11)
[2022-10-06] MEDS: SULFAMETHOXAZOLE/TRIMETHOPRIM DS 800/160MG TAB PO SCH ×2 (09:11→21:55)
[2022-10-06] MEDS: METOPROLOL TARTRATE 25 MG TAB PO SCH ×2 (09:11→21:53)
[2022-10-06] MEDS: TOPIRAMATE 100 MG TAB PO SCH ×2 (09:12→21:54)
[2022-10-06] MEDS: DOCUSATE SODIUM 100 MG CAP PO SCH ×2 (09:16→21:59)
[2022-10-06] MEDS: POTASSIUM CHLORIDE CRTAB 20 MEQ TABCR PO SCH ×2 (09:17→21:59)
--- NOTE | 2022-10-06 10:54 | Hospitalist Progress Note ---
Date of Service October 06, 2022 Assessment & Plan (1) SOB (shortness of breath): Plan: - Acute on Chronic related to COPD, OHS, RASHAAD, CHF - Continue meds - Resume prn Duonebs and inhalers - Ordered mucomyst but patient refused - Reordered Mucinex but pt claims she cannot swallow and they cannot be cut - ordered Guaifenesin 200mg (liq) PO q6 - Requested chest compression device, will utilize BID - Received 2 days of Solu-Medrol, converted to Prednisone taper 10/06 starting at 40mg, reduce by 10mg every 2 days (2) Atypical chest pain: Plan: - vitals stable on admit, pulse ox 94% room air - Troponin negative x2 - CXR:No acute chest disease. Cardiomegaly is noted. - EKG: unchanged from previous - No further c/o CP and w/u unremarkable - d/c'd tele 10/02, now on med/surg issue has resolved (3) Cellulitis: Plan: Concern Cellulitis (mild) of RLE - CBC wnl - noted erythema and pain on palpation on b/l LE with 1 open skin lesion on right leg consistent with skin picking - received 1 day bactrim at [facility] - Changed by admitting resident to Daptomycin, discontinued and resumed oral Bactrim on 10/02 - No evidence of cellulitis at this time, completes 7 day course after 10/06 2100 dose (4) Weakness: Plan: - Related to morbid obesity and chronic R femur fx - PT/OT - Case management for complex dc issues (5) Fracture of distal end of right femur: Plan: - Chronic, NWB to RLE - PT/OT - Pain control (6) Hypothyroidism (acquired): Plan: - Continue Levothyroxine, recent increased from 200mcg daily to 225mcg (7) CKD stage 4 due to type 2 diabetes mellitus: Plan: -Creat 1.58 (baseline 1.3-1.8) (8) GERD (gastroesophageal reflux disease): Plan: -Continue protonix (9) Insulin-requiring or dependent type II diabetes mellitus: Plan: -SSI -glargine 80U BID (10) Anxiety: Plan: - Resume home meds (11) Chronic diastolic congestive heart failure: Plan: - noted 15kg weight gain since 09/09 - received lasix 20mg IV in ED - echo 2020 EF 55-60% - continue torsemide, spironolactone, metoprolol, isosorbide mononitrate, ASA, atorvastatin - ordered repeat echo--EF 45-50% but otherwise no significant changes from prior exam - ordered daily weights - presently diuresing on oral regimen, will not order IV diuresis (12) Morbid obesity with BMI of 60.0-69.9, adult: Plan: - weight loss advised given that it is the root cause of many of her medical issues Plan PT/OT. Case management consult for complex dc needs. Patient does qualify for 90 hours of assistance per week of which she would require. She also will need wheelchair access to her home via ramp, as well as widened doorways to accommodate a wheelchair and repair of hole that is reported in the floor of her home for pt to safely be in her home. She would also require chair lift to get her from first floor to second floor. This has also been documented during her previous admission. Pt is refusing to return to [facility] and during her last admission was refusing to outside of the immediate area. Continue interventions as outlined above. Plan discussed with Dr. Molina. Admission and Anticipated Discharge Date Admission Date: October 01, 2022 Subjective Patient seen on daily rounds this morning. Today states that she feels like she is more short of breath and wheezing. Had a breathing treatment. Oxygen saturation is upper 90s on room air. She states today that she can't swallow the mucinex pills despite telling me yesterday that she was swallowing them without difficulty. She is asking if they can be cut. She refused the Mucomyst that was ordered. She states she was able to get up into the bedside recliner with PT assistance yesterday. No other complaints verbalized. Review of Systems Review of Systems: All systems reviewed and are unremarkable except as noted in HPI and below. Denies fever, chills, fatigue, headache, nasal congestion, sore throat, chest pain, palpitations, orthopnea, PND, abdominal pain, n/v/d, constipation, dysuria, hematuria, frequency, back pain, easy bruising or bleeding. Physical Exam Physical Exam: GENERAL: 67 yo Well-developed, well-nourished morbidly obese WF. NAD NECK: metal trach noted LUNGS: Some mild scattered end expiratory wheezes throughout CARDIOVASCULAR: Regular rate and rhythm. ABDOMEN: Obese, soft, non-tender and non-distended. BS normoactive x 4 quad. EXTREMITIES: Trace edema. Non-tender. Peripheral pulses +2/4. NEUROLOGIC: A&O x3. Nonfocal PSYCHIATRIC: Cooperative. Appropriate mood and affect. SKIN: Warm, dry, intact. multiple excoriations to RLE and small nickel size open lesion LLE Results & Data Results & Data ([facility]) Vital Signs (Past 12 Hours) Vital Signs Temp Pulse Resp BP Pulse Ox O2 Del Method 10/06/22 07:20 Room Air 10/06/22 09:08 88 118/68 10/06/22 07:35 20 96 Room Air 10/06/22 07:24 93 Room Air 10/06/22 06:58 36.8 C 76 18 136/67 90 Room Air PG Care Time/CCT Total # of Minutes Spent Total Time Spent with Patient: Total time spent is greater than 50% in coordination of care (as documented) at patient's floor/unit and/or counseling patient: Coding Level of Care Code 01072 Subseq Hosp Care Lvl 2 Diagnoses SOB (shortness of breath) R06.02 Atypical chest pain R07.89 Cellulitis L03.90 Weakness R53.1 Fracture of distal end of right femur S72.401A Hypothyroidism (acquired) E03.9 CKD stage 4 due to type 2 diabetes mellitus E11.22; N18.4 GERD (gastroesophageal reflux disease) K21.9 Insulin-requiring or dependent type II diabetes mellitus E11.9; Z79.4 Anxiety F41.9 Chronic diastolic congestive heart failure I50.32 Morbid obesity with BMI of 60.0-69.9, adult E66.01; Z68.44
[2022-10-06] MEDS: guaiFENesin SUGAR FREE 200 MG/10 ML UDC PO SCH ×3 (13:02→23:07)
--- NOTE | 2022-10-06 13:13 | Pharmacy Report ---
Pharmacy Glycemic Short Note 2 - Date of Service October 06, 2022 - Glycemic Short BSG Results (Last 24 hours): 10/05/22 10/05/22 10/06/22 17:10 20:31 08:09 POC Glucose 144 H 204 H 82 10/06/22 12:12 POC Glucose 149 H OUTPATIENT ANTIDIABETIC REGIMEN: * Lantus 80 units BID * Humalog scale * HbA1C = 8.9% (07/25/22) ASSESSMENT: 10/06/22 * Patient's BSGs yesterday were [phone] mg/dL. Steroids were discontinued after the first dose yesterday. * Patient now on prednisone 40 mg daily * Patient received 225 units of insulin yesterday (140 units of basal and 85 units of bolus). Patient's regimen remains basal heavy but improved in regards to the split. * Fasting BSG today is 89 mg/dL. * Will reduce basal rate to 80 units today (40 units BID or a 40% reduction). This was done because fasting BSG has trended down significantly and Solu- Medrol was discontinued. Hold NPH for today for prednisone hyperglycemia since patient's regimen was extremely basal heavy for the past several days. consi alex this tomorrow. * Tighten CR as patient did trend upwards after dinner. BACKGROUND * Ms Connelly is a 67 y/o F with a PMH of T2DM who presents with chest pain. She is very familiar to the glycemic service as during her past admission. During that admission, patient was very stable on Lantus 80 units BID plus Novolog CF 5 CR 1. * This admission, patient was started on Lantus 80 units BID plus Novolog CF 30 CR 9. Patient has been stable, if not with lower BSGs on this. (BSGs of [phone] mg/dL on 10/03/22) * Yesterday, Solu-Medrol 40 mg IV q8 was started and BSGs trended upwards to 308 by the end of the day. She received 196 units of insulin yesterday (160 of basal and 36 units of bolus). This is in comparison to last admission when patient received consistently about 350 units of insulin. * Fasting today is 155 mg/dL. Patient is very basal heavy with the above regimen. Will give Lantus 80 units this AM then reduce basal by 20% to 60 units BID. * Due to steroids, will tighten Novolog significantly. Will not be as tight as last admission since the patient's glycemic needs do not appear to be as large. This may need to be loosened later if proves too aggressive at lunch. PLAN FOR INPATIENT GLYCEMIC CONTROL: * Basal insulin * Lantus 40 units SQ BID * Bolus insulin * NovoLog per scale ACHS or Q6hrs while NPO * Goal Range: Low 110 mg/dL - High 140 mg/dL * Correction Factor: 10 mg/dL/unit * Nutritional / Prandial insulin per carb ratio of 1 unit per 2.5 grams CHO consumed
[2022-10-06] MEDS: ACETAMINOPHEN 325 MG TAB PO PRN (15:31)
[2022-10-06] MEDS: ATORVASTATIN 40 MG TAB PO SCH (21:56)
[2022-10-06] MEDS ORDERED: ALBUT/IPRATROP 3MG/0.5MG NEB 3 ML VIAL NEB PRN (21:59)
[2022-10-07] MEDS: ACETAMINOPHEN 325 MG TAB PO PRN (03:13)
[2022-10-07] MEDS: guaiFENesin SUGAR FREE 200 MG/10 ML UDC PO SCH ×2 (05:18→12:26)
[2022-10-07] MEDS: LEVOTHYROXINE SODIUM 25 MCG TABLET PO SCH (06:14)
[2022-10-07] MEDS: LEVOTHYROXINE SODIUM 200 MCG TABLET PO SCH (06:14)
[2022-10-07] MEDS: PANTOprazole 40 MG TAB PO SCH (06:14)
[2022-10-07] MEDS: HEPARIN SOD 5,000 UNIT/0.5 ML VIAL SQ SCH ×3 (06:15→21:32)
[2022-10-07] MEDS: TORSEMIDE 10 MG TAB PO SCH (06:16)
[2022-10-07] MEDS: oxyCODONE HCL IR 5 MG TAB (IMMEDIATE RELEASE) PO PRN ×2 (06:20→21:33)
[2022-10-07] MEDS: ALBUT/IPRATROP 3MG/0.5MG NEB 3 ML VIAL NEB SCH ×4 (07:32→19:47)
--- NOTE | 2022-10-07 08:32 | Hospitalist Progress Note ---
Date of Service October 07, 2022 Assessment & Plan (1) SOB (shortness of breath): Plan: Acute on Chronic related to COPD, OHS, RASHAAD, CHF (acute on chronic diastolic heart failure) Placed on duonebs QID, Viviana endorses using these 4x/daily in winter months when she is more at risk w/ infections Ordered mucomyst prior however patient declined this. Had ordered mucinex however patient reporting extreme dry mouth with such Given Solumedrol IV x 2 days, converted to prednisone 40mg 10/06, titrate by 10mg Q2D Upon evalutation 10/07, patient reported increased shortness of breath, appeared to have possible mucus plugging/difficulty clearing secretions and suspected volume overload from steroid use with increased wheezing/O2 use --> discussed hypertonic saline nebs, agreeable, and ordered BID. IMPROVEMENT after tx and patient reported able to clear lots of clear/white sputum CXR obtained due to such, cardiomegaly with increased mild pulmonary edema --> on torsemide 10mg BID -- placed order to hold this, will use IV lasix for now. 40mg IV x1, can repeat dose this evening vs increase home torsemide use to 20mg BID for tomorrow/monitor response Monitor weights/I&O -- appears weight up from last admission but do not suspect weights accurate. (2) Chronic diastolic congestive heart failure: Plan: Hx CAD/diastolic CHF Noted 15kg weight gain since 09/09 admission (139.5kg at d/c, 156kg on admit), however ? accuracy of weights Given lasix 20mg IV in ED on admission ECHO w/ EF 45-50% (prior in 2020 w/ EF 55-60%), otherwise no changes On torsemide 10mg BID, spironolactone 25mg, metoprolol tartrate 12.mg BID (?changing to succinate), isosorbide, ASA, statin Increased O2 use/SOB/weight gain in system, suspected acute on chronic diastolic HF contributing to SOB as above, likely from fluid retention from steroids Lasix 40mg IV x 1, repeat dose this evening pending response, consider increasing her torsemide for tomorrow to 20mg BID Measure I&O, daily weights (3) Atypical chest pain: Plan: Reported on admit, trop negative x 2 CXR w/o acute process, cardiomegaly noted. ECHO as above EKG unchanged from priors DENIED chest pain to me, symptoms more of shortness of breath -- tx as outlined Prior d/c tele 10/02 (4) Cellulitis: Plan: Concern Cellulitis (mild) of RLE, - noted erythema and pain on palpation on b/l LE with 1 open skin lesion on left leg consistent with skin picking - received 1 day bactrim at [facility] - Changed by admitting resident to Daptomycin, discontinued and resumed oral Bactrim on 10/02 - No evidence of cellulitis at this time, completed course abx 10/06 (5) Weakness: Plan: Related to morbid obesity and chronic R femur fx PT/OT, CM for complex dc issues (6) Fracture of distal end of right femur: Plan: Chronic, NWB to RLE Pain control, PT/OT consulted (7) Hypothyroidism (acquired): Plan: Continue Levothyroxine, recent increased from 200mcg daily to 225mcg last admission (8) CKD stage 4 due to type 2 diabetes mellitus: Plan: Creat 1.58 previously (baseline 1.3-1.8) Cr elevated to 1.98 today, weights up, increased pulmonary edema -- suspect related to CHF as above Monitor on repeat with diuresis (9) GERD (gastroesophageal reflux disease): Plan: Continue protonix (10) Insulin-requiring or dependent type II diabetes mellitus: Plan: A1c 8.9, holding home agents BSG AC/HS while inpatient, utilizing SSI Prior elevations to 300s on 10/04, likely from IV solumedrol Pharmacy consulted for glycemic control 10/05 BSGs much improved today 85-115 Monitor w/ transition to PO prednisone (11) Anxiety: Plan: Continue home medications (12) Morbid obesity with BMI of 60.0-69.9, adult: Plan: - weight loss advised given that it is the root cause of many of her medical issues (13) Tinea: Plan: appears to b/l toenails, stated prior seen by Dr Crump, inquired if anyone would be able to cut them due to her being DM/unable to have someone come in prior Discussed have had providers come inpatient , but not always guarantee but will place consult to see if they are able outpatient f/u podiatry for foot clinic rec'd Plan PT/OT. Case management consult for complex dc needs. Patient does qualify for 90 hours of assistance per week of which she would require. She also will need wheelchair access to her home via ramp, as well as widened doorways to accommodate a wheelchair and repair of hole that is reported in the floor of her home for pt to safely be in her home. She would also require chair lift to get her from first floor to second floor. This has also been documented during her previous admission. Pt is refusing to return to [facility] and during her last admission was refusing to outside of the immediate area. 10/07 Discussed with CM to contact Viviana's probation counselor. Tori left voicemail yesterday, planning to reach back out today. She does have 90hours of caregivers arranged to begin 10/21, however will need to see what all needs completed to safely make this happen. Unclear if will remain inpatient in the meantime or if placement will be successful. Viviana tells me she had aides screaming at her at [facility] to participate in therapy and her daughter heard them on speaker. She was also told when she was leaving to "not return as they can't take care of you Viviana". This was relayed to CM as well Admission and Anticipated Discharge Date Admission Date: October 01, 2022 Supervising Physician Co-Signing Physician Notes PA Supervision Note: I did not personally see or examine the patient today, but I verified all pappas points of KATIE Ordonez's assessment and plan with the following exceptions/additions: None Subjective eval this afternoon states she believes her breathing is worse some clot w/ cough last night, occurred in the past when she has been dried out. states the mucinex dried her out, also doesn't want to take any more She was very excited to see me, thankful for assistance in her care. Discussed her "feeling dry" but that she may actually be a little volume overl oaded based on weights however they may also not be accurate. Has b/l rales in anterior upper chest, and end expiratory wheezing along with expiratory wheezing posterior lung hale.. +cough but unable to cough anything up. Discussed her Cr elevated however this can be from both volume overload vs dehydration. Her mouth is dry, no increased LE edema. On Duonebs q4h currently as she uses in the winter time when she is more prone to getting sick. Discussed adding hypertonic saline nebulizers to help . states all she needs for home is motorized wheelchair and lift chair. having 90 hours of caregivers to begin on Oct 21. States her probation counselor stated that they can arrange the rest of the things like widening the door/ramp after she is home. Will have CM touch base with her probation counselor to make sure on the same page. Checked back on patient after hypertonic saline treatment, she reported feeling less congested/lots of coughing/able to bring up decent amount of clear/white sputum. Will continue. She noted they did use this in [facility] for her in the past. Review of Systems Review of Systems: All systems reviewed & are unremarkable except as noted in HPI & below Physical Exam Physical Exam: General: WD/morbidly obese female sitting up in bed, NAD but having episodes of coughing/reporting increased shortness of breath compared to days past HEENT: head normocephalic, thick neck, +metal trach, mmm w/ biotin spray provided Resp: diminished in the bases, rhonchi bilateral posterior lung hale with end expiratory wheezing, coarse breath sounds to anterior upper airways, no stridor, on 8L NC via trach collar with humidified oxygen CV: RRR, no m/r/g, no pitting edema, calves nontender, cap refill wnl MSK/Neuro: generalized weakness b/l LE, NVI, pulses palpable Psych: AOx3, cooperative and pleasant Skin: dry flaking to LE, no further cellulitis/erythema, opened scab covered with optifoam to L medial inferior knee, nonpainful toenails with fungal appearance Results & Data Results & Data ([facility]) Vital Signs (Past 12 Hours) Vital Signs Temp Pulse Resp BP Pulse Ox O2 Del Method O2 Flow Rate 10/07/22 08:02 36.5 C 70 20 116/64 92 Trach Collar 8.0 10/07/22 07:41 67 20 98 Trach Collar 7 10/06/22 21:00 Trach Collar 5 10/06/22 21:46 36.5 C 96 H 18 125/67 94 Trach Collar 6 10/06/22 20:46 36.5 C 103 H 18 119/65 91 Room Air Laboratory Results 10/07/22 10/07/22 10/07/22 Range/Units 12:15 08:58 08:58 WBC (4.8-10.8) K/ul RBC (3.93-5.22) M/uL Hgb (12.0-16.0) g/dl Hct (34.1-44.9) % MCV (80.0-100.0) fL MCH (25.0-34.0) pg MCHC (32.0-36.0) g/dL RDW Std Deviation (36.4-46.3) fL RDW Coeff of Amee (11.5-14.5) % Plt Count (130-400) K/uL MPV (9.4-12.3) fL Immature Gran % (Auto) % Neut % (Auto) % Lymph % (Auto) % Estill % (Auto) % Eos % (Auto) % Baso % (Auto) % Neut # (Auto) (1.4-6.5) K/uL Lymph # (Auto) (1.2-3.4) K/uL Estill # (Auto) (0.24-0.82) K/uL Eos # (Auto) (0-0.50) K/uL Baso # (Auto) (0-0.2) K/uL Immature Gran # (Auto) (0.00-0.02) K/uL Sodium 136 (136-145) mmol/L Potassium 4.4 (3.5-5.1) mmol/L Chloride 104 (98-107) mmol/L Carbon Dioxide 24 (21-32) mmol/L Anion Gap 8 (3-11) BUN 38 H (6-23) mg/dl Creatinine 1.98 H (0.6-1.2) mg/dl Est Cr Clr Drug Dosing 39.9 ml/min Est GFR ( Amer) 29.8 ml/min Est GFR (Non-Af Amer) 25.7 ml/min BUN/Creatinine Ratio 19.2 (10-20) Glucose 99 (70-99(Fasting)) mg/dl POC Glucose 115 H (70-99) mg/dl Calcium 9.3 (8.5-10.1) mg/dl Magnesium 2.1 (1.7-2.4) mg/dl Total Bilirubin 0.4 (0.2-1.0) mg/dl AST 19 (13-39) U/L ALT 23 (7-52) U/L Alkaline Phosphatase 78 (34-104) U/L B-Natriuretic Peptide 25 (0-100) pg/ml Total Protein 7.2 (6.0-8.3) gm/dl Albumin 3.7 (3.4-5.0) gm/dl Globulin 3.5 (2.5-4.0) gm/dl Albumin/Globulin Ratio 1.1 (0.9-2) 10/07/22 10/07/22 10/06/22 Range/Units 08:58 08:11 20:20 WBC 9.69 (4.8-10.8) K/ul RBC 4.18 (3.93-5.22) M/uL Hgb 12.1 (12.0-16.0) g/dl Hct 37.8 (34.1-44.9) % MCV 90.4 (80.0-100.0) fL MCH 28.9 (25.0-34.0) pg MCHC 32.0 (32.0-36.0) g/dL RDW Std Deviation 47.7 H (36.4-46.3) fL RDW Coeff of Amee 14.5 (11.5-14.5) % Plt Count 266 (130-400) K/uL MPV 9.6 (9.4-12.3) fL Immature Gran % (Auto) 1.0 % Neut % (Auto) 62.4 % Lymph % (Auto) 24.6 % Estill % (Auto) 9.4 % Eos % (Auto) 2.1 % Baso % (Auto) 0.5 % Neut # (Auto) 6.05 (1.4-6.5) K/uL Lymph # (Auto) 2.38 (1.2-3.4) K/uL Estill # (Auto) 0.91 H (0.24-0.82) K/uL Eos # (Auto) 0.20 (0-0.50) K/uL Baso # (Auto) 0.05 (0-0.2) K/uL Immature Gran # (Auto) 0.10 H (0.00-0.02) K/uL Sodium (136-145) mmol/L Potassium (3.5-5.1) mmol/L Chloride (98-107) mmol/L Carbon Dioxide (21-32) mmol/L Anion Gap (3-11) BUN (6-23) mg/dl Creatinine (0.6-1.2) mg/dl Est Cr Clr Drug Dosing ml/min Est GFR ( Amer) ml/min Est GFR (Non-Af Amer) ml/min BUN/Creatinine Ratio (10-20) Glucose (70-99(Fasting)) mg/dl POC Glucose 85 264 H (70-99) mg/dl Calcium (8.5-10.1) mg/dl Magnesium (1.7-2.4) mg/dl Total Bilirubin (0.2-1.0) mg/dl AST (13-39) U/L ALT (7-52) U/L Alkaline Phosphatase (34-104) U/L B-Natriuretic Peptide (0-100) pg/ml Total Protein (6.0-8.3) gm/dl Albumin (3.4-5.0) gm/dl Globulin (2.5-4.0) gm/dl Albumin/Globulin Ratio (0.9-2) 10/06/22 Range/Units 17:04 WBC (4.8-10.8) K/ul RBC (3.93-5.22) M/uL Hgb (12.0-16.0) g/dl Hct (34.1-44.9) % MCV (80.0-100.0) fL MCH (25.0-34.0) pg MCHC (32.0-36.0) g/dL RDW Std Deviation (36.4-46.3) fL RDW Coeff of Amee (11.5-14.5) % Plt Count (130-400) K/uL MPV (9.4-12.3) fL Immature Gran % (Auto) % Neut % (Auto) % Lymph % (Auto) % Estill % (Auto) % Eos % (Auto) % Baso % (Auto) % Neut # (Auto) (1.4-6.5) K/uL Lymph # (Auto) (1.2-3.4) K/uL Estill # (Auto) (0.24-0.82) K/uL Eos # (Auto) (0-0.50) K/uL Baso # (Auto) (0-0.2) K/uL Immature Gran # (Auto) (0.00-0.02) K/uL Sodium (136-145) mmol/L Potassium (3.5-5.1) mmol/L Chloride (98-107) mmol/L Carbon Dioxide (21-32) mmol/L Anion Gap (3-11) BUN (6-23) mg/dl Creatinine (0.6-1.2) mg/dl Est Cr Clr Drug Dosing ml/min Est GFR ( Amer) ml/min Est GFR (Non-Af Amer) ml/min BUN/Creatinine Ratio (10-20) Glucose (70-99(Fasting)) mg/dl POC Glucose 251 H (70-99) mg/dl Calcium (8.5-10.1) mg/dl Magnesium (1.7-2.4) mg/dl Total Bilirubin (0.2-1.0) mg/dl AST (13-39) U/L ALT (7-52) U/L Alkaline Phosphatase (34-104) U/L B-Natriuretic Peptide (0-100) pg/ml Total Protein (6.0-8.3) gm/dl Albumin (3.4-5.0) gm/dl Globulin (2.5-4.0) gm/dl Albumin/Globulin Ratio (0.9-2) Diagnostic Findings Chest X-Ray 10/07/22 10:40 XR chest 1V portable CLINICAL HISTORY: eval volume overload TECHNIQUE: Single frontal radiograph of the chest was obtained. Comparison: Comparison is made to chest radiograph 10/01/2022 FINDINGS: Exam is limited by underpenetration. Tracheostomy tube is stable. Cardiomegaly is noted. Prominence and cephalization of the vasculature is seen. No evidence of pleural effusion or pneumothorax. IMPRESSION: Cardiomegaly and mild pulmonary edema. This is increased from prior exam. ACT 112: Negative or not required by law. Electronically signed by: Layo Cutler M.D. 10/07/2022 11:10 AM PG Care Time/CCT Total # of Minutes Spent Total Time Spent with Patient: Total time spent is greater than 50% in coordination of care (as documented) at patient's floor/unit and/or counseling patient: Coding Level of Care Code 63115 Subseq Hosp Care Lvl 3 Diagnoses SOB (shortness of breath) R06.02 Chronic diastolic congestive heart failure I50.32 Atypical chest pain R07.89 Cellulitis L03.90 Weakness R53.1 Fracture of distal end of right femur S72.401A Hypothyroidism (acquired) E03.9 CKD stage 4 due to type 2 diabetes mellitus E11.22; N18.4 GERD (gastroesophageal reflux disease) K21.9 Insulin-requiring or dependent type II diabetes mellitus E11.9; Z79.4 Anxiety F41.9 Morbid obesity with BMI of 60.0-69.9, adult E66.01; Z68.44 Tinea B35.9
[2022-10-07] MEDS: FOLIC ACID 1 MG TAB PO SCH (09:18)
[2022-10-07] MEDS: MULTIVITAMIN TAB PO SCH (09:18)
[2022-10-07] MEDS: ASPIRIN 81 MG ECTAB PO SCH (09:18)
[2022-10-07] MEDS: TOPIRAMATE 100 MG TAB PO SCH ×2 (09:18→21:36)
[2022-10-07] MEDS: SPIRONOLACTONE 25 MG TAB PO SCH (09:18)
[2022-10-07] MEDS: METOPROLOL TARTRATE 25 MG TAB PO SCH ×2 (09:19→21:36)
[2022-10-07] MEDS: buPROPion SR 100 MG TABCR PO SCH ×2 (09:19→21:35)
[2022-10-07] MEDS: predniSONE 20 MG TAB PO SCH (09:20)
[2022-10-07] MEDS: ISOSORBIDE MONO EXTENDED REL 30 MG TABCR PO SCH (09:20)
[2022-10-07] MEDS: MAGNESIUM OXIDE 400 MG TAB PO SCH (09:21)
[2022-10-07 09:25] LABS: Basophils # (auto) 0.05 K/uL (0-0.2); Basophils % (auto) 0.5 %; Eosinophils % (auto) 2.1 %; Hematocrit (blood only) 37.8 % (34.1-44.9); Hemoglobin 12.1 g/dl (12.0-16.0); Lymphocytes # (auto) 2.38 K/uL (1.2-3.4); Lymphocytes % (auto) 24.6 %; Mean Corpuscular Hemoglobin 28.9 pg (25.0-34.0); Mean Corpuscular Volume 90.4 fL (80.0-100.0); Mean Platelet Volume 9.6 fL (9.4-12.3); Monocytes # (auto) 0.91 K/uL (0.24-0.82); Monocytes % (auto) 9.4 %; Neutrophils # (auto) 6.05 K/uL (1.4-6.5); Neutrophils % (auto) 62.4 %; Platelet Count 266 K/uL (130-400); RDW Coefficient of Variation 14.5 % (11.5-14.5); RDW Standard Deviation 47.7 fL (36.4-46.3); Red Blood Count 4.18 M/uL (3.93-5.22); White Blood Count 9.69 K/ul (4.8-10.8)
[2022-10-07] MEDS: POTASSIUM CHLORIDE CRTAB 20 MEQ TABCR PO SCH ×2 (09:34→21:33)
[2022-10-07] MEDS: LANTUS PER UNIT CHARGE SQ SCH (09:34)
[2022-10-07] MEDS: INSULIN ASPART PER UNIT SC SCH ×4 (09:35→21:30)
[2022-10-07] MEDS: DOCUSATE SODIUM 100 MG CAP PO SCH ×2 (09:38→21:33)
[2022-10-07 09:48] LABS: Albumin Globulin Ratio 1.1 (0.9-2); Albumin Level 3.7 gm/dl (3.4-5.0); BUN Creatinine Ratio 19.2 (10-20); Bilirubin,Total 0.4 mg/dl (0.2-1.0); Calcium 9.3 mg/dl (8.5-10.1); Creatinine Clr Calc Pharmacy 39.9 ml/min; Est GFR (African American) 29.8 ml/min; Est GFR (Non-African American) 25.7 ml/min; Globulin 3.5 gm/dl (2.5-4.0); Magnesium 2.1 mg/dl (1.7-2.4); Potassium 4.4 mmol/L (3.5-5.1); Total Protein 7.2 gm/dl (6.0-8.3)
--- NOTE | 2022-10-07 11:11 | XRay Report ---
XR chest 1V portable CLINICAL HISTORY: eval volume overload TECHNIQUE: Single frontal radiograph of the chest was obtained. Comparison: Comparison is made to chest radiograph 10/01/2022 FINDINGS: Exam is limited by underpenetration. Tracheostomy tube is stable. Cardiomegaly is noted. Prominence a nd cephalization of the vasculature is seen. No evidence of pleural effusion or pneumothorax. IMPRESSION: Cardiomegaly and mild pulmonary edema. This is increased from prior exam. ACT 112: Negative or not required by law. Electronically signed by: Layo Cutler M.D. 10/07/2022 11:10 AM
[2022-10-07] MEDS: SODIUM CHLOR 7% 4 ML NEB NEB SCH ×2 (11:24→19:47)
[2022-10-07] MEDS ORDERED: FUROSEMIDE 40 MG/4 ML VIAL IV ONE (11:28)
--- NOTE | 2022-10-07 13:09 | Podiatry Consultation ---
Date of Consultation October 07, 2022 Assessment & Plan (1) Type 2 diabetes mellitus: (2) Tinea unguium: recommend debridement of digits 1-5 both feet, patient gave verbal consent for debridement, debrided with nail nippers to tolerance, without bleeding of infection. Of note patient's right great toenail was essentially detached and post debridement removed without bleeding or infection, patient should f/u for diabetic foot care outpatient post d/c History of Present Illness Reason for Consultation: requests toenail care Attending Physician: Naomi Pa MD History of Present Illness Patient is a very pleasant 67 year old seen at bedside for debridement of toenails. She is known to my practice, typically toenails are cared outpatient at our office, patient notes to me that she broke her leg and was in [place], due to this is requesting toenail care. Allergies Allergy/AdvReac Type Severity Reaction Status Date / Time Penicillins Allergy Intermediate Hives Verified 10/01/22 19:48 amitriptyline Allergy Unknown ON EMBASSY Verified 10/01/22 19:48 OF [facility] MED LIST doxycycline Allergy Unknown ON EMBASSY Verified 10/01/22 19:48 OF [facility] MED LIST guaifenesin Allergy Unknown ON EMBASSY Verified 10/01/22 19:48 OF [facility] MED LIST metformin Allergy Unknown ON EMBASSY Verified 10/01/22 19:48 OF [facility] MED LIST phenylephrine Allergy Unknown ON EMBASSY Verified 10/01/22 19:48 OF [facility] MED LIST pseudoephedrine Allergy Unknown ON EMBASSY Verified 10/01/22 19:48 OF [facility] MED LIST tetracycline Allergy Unknown ON EMBASSY Verified 10/01/22 19:48 OF [facility] MED LIST venlafaxine [From Effexor] Allergy Unknown ON EMBASSY Verified 10/01/22 19:48 OF [facility] MED LIST gabapentin AdvReac Intermediate BECOMES Verified 10/01/22 19:48 AGGRESSIVE Home Medications Medication Instructions Recorded Confirmed Type aspirin 81 mg tablet,delayed 81 mg PO QAM 04/06/19 10/01/22 History release (Robert Low Dose Aspirin) bupropion HCl 100 mg tablet,12 hr See Rx Instructions .Route .COMPLEX 04/06/19 10/01/22 History sustained-release metoprolol tartrate 25 mg tablet 12.5 mg PO BID 04/06/19 10/01/22 History multivitamin 1 tab PO QAM 04/06/19 10/01/22 History pantoprazole 40 mg tablet,delayed 40 mg PO DAILYBB 04/06/19 10/01/22 History release spironolactone 25 mg tablet 25 mg PO QAM 04/06/19 10/01/22 History topiramate 100 mg tablet 100 mg PO BID 04/06/19 10/01/22 History Oxygen Home #1 ea 06/28/19 03/22/22 History nitroglycerin 0.4 mg sublingual 0.4 mg sublingual DIRECTED PRN 06/28/19 10/01/22 History tablet Chest Pain nebulizers #1 ea 12/24/20 10/04/22 Rx betamethasone dipropionate 0.05 % 1 applic topical BID PRN Skin 02/27/21 10/01/22 History topical cream Irritation ipratropium 0.5 mg-albuterol 3 mg 3 ml inhalation Q4H PRN COUGHING, 02/27/21 10/01/22 History (2.5 mg base)/3 mL nebulization WHEEZING, SHORTNESS OF BREATH soln folic acid 1 mg tablet 1 mg PO QAM #0 tabs 04/19/21 10/01/22 Rx blood sugar diagnostic (Contour #300 ea 09/29/21 10/04/22 Rx Next Test Strips) albuterol sulfate 90 mcg/actuation 2 puff inhalation Q4 PRN Shortness 11/25/21 10/01/22 History aerosol inhaler Of Breath atorvastatin 40 mg tablet 40 mg PO QPM #90 tabs 01/14/22 10/01/22 Rx acetaminophen 500 mg tablet 500 mg PO QPM 03/23/22 10/01/22 History (Tylenol Extra Strength) acidophilus 100 million 1 cap PO QAM 03/23/22 10/01/22 History cell-pectin, citrus 10 mg capsule torsemide 10 mg tablet 10 mg PO BID 07/24/22 10/01/22 History insulin glargine 100 unit/mL (3 80 unit (0.8 mL) subcut BID #48 mL 09/07/2210/12 Rx mL) subcutaneous pen isosorbide mononitrate 30 mg 30 mg PO QAM #30 tabs 09/07/22 10/01/22 Rx tablet,extended release 24 hr oxycodone 5 mg tablet 10 mg PO Q8H PRN pain #10 tabs 09/07/22 10/01/22 Rx acetaminophen 325 mg tablet 650 mg PO Q6H PRN FEVER/PAIN 10/01/22 10/01/22 History (Tylenol) docusate sodium 100 mg capsule 100 mg PO BID 10/01/22 10/01/22 History insulin lispro 100 unit/mL 1 sliding scale dose subcut 10/01/22 10/01/22 History subcutaneous pen (Humalog KwikPen USEASDIRECTD (U-100) Insulin) ipratropium 20 mcg-albuterol 100 1 puff inhalation QID 10/01/22 10/01/22 History mcg/actuation mist for inhalation (Combivent Respimat) levothyroxine 200 mcg tablet 200 mcg PO DAILYBB 10/01/22 10/01/22 History levothyroxine 25 mcg tablet 25 mcg PO DAILYBB 10/01/22 10/01/22 History magnesium oxide 400 mg PO QAM 10/01/22 10/01/22 History potassium chloride 20 mEq 20 meq PO BID 10/01/22 10/01/22 History tablet,extended release sulfamethoxazole 800 1 tab PO BID 10/01/22 10/01/22 History mg-trimethoprim 160 mg tablet (Bactrim DS) Patient History Medical History Ambulatory dysfunction Breathlessness Chest pain CHF (congestive heart failure) Dyslipidemia Fluid overload HTN (hypertension) Insulin-requiring or dependent type II diabetes mellitus MRSA (methicillin resistant staph aureus) culture positive "sputum 11/2015" Right ventricular dysfunction Sepsis Surgical History History of appendectomy History of cholecystectomy History of hysterectomy History of tonsillectomy and adenoidectomy S/P IVC filter Family History Mother Coronary heart disease COPD (chronic obstructive pulmonary disease) Father Suicide Hung himself. Pt found him. Unknown Lung cancer Social History Smoking Status: Never smoker Tobacco Type: Cigarettes Second Hand Exposure: No; Hx Alcohol Use: No Hx Substance Use: No Preferred Language: Chilean Communication Ability: Effective Visual Impairment: Limited Cleaner And Trimmer Required: No Beliefs That Will Affect Care: None marital status: Current Living Situation: [facility] Current Living Situation Comment: came from [facility] doesn't want to go back current occupational status: disabled How many Children do You have: 1 Other Information That Helps Us Care for You: No Feels Safe at Home: Yes Safety Concerns: Feels Safe At This Time Assistive Devices: Bedside Commode, Hospital Bed, Oxygen - at Night, Walker, Wheelchair and Other Assistive Devices Comment: suction machine, trach supplies Physical Exam Skin: skin is clean and dry, no open wounds present, DP pulse palpable 1 out of 4, PT difficult to palpate due to swelling, pedal hair is noted to be present, capillary refill time is less than 3 seconds, toenails of digits 1- 5 bilateral feet with thickening and elongation, recommend debridement. Results & Data ([facility]) Vital Signs (Past 12 Hours) Vital Signs Temp Pulse Resp BP Pulse Ox O2 Del Method O2 Flow Rate 10/07/22 11:24 81 20 97 Trach Collar 8 10/07/22 07:30 Trach Collar 8 10/07/22 08:02 36.5 C 70 20 116/64 92 Trach Collar 8.0 10/07/22 07:41 67 20 98 Trach Collar 6 FiO2 10/07/22 11:24 28 10/07/22 07:30 10/07/22 08:02 10/07/22 07:41 28
--- NOTE | 2022-10-07 14:08 | Pharmacy Report ---
Pharmacy Glycemic Short Note 2 - Date of Service October 07, 2022 - Glycemic Short BSG Results (Last 24 hours): 10/06/22 10/06/22 10/07/22 17:04 20:20 08:11 Glucose POC Glucose 251 H 264 H 85 10/07/22 10/07/22 08:58 12:15 Glucose 99 POC Glucose 115 H OUTPATIENT ANTIDIABETIC REGIMEN: * Lantus 80 units BID * Humalog scale * HbA1C = 8.9% (07/25/22) ASSESSMENT: 10/07/22 * Patients BSGs [phone] mg/dL; continues prednisone 40 mg daily * Patient received 165 units of insulin yesterday; 80 units of basal 85 units of bolus * Fasting BSG today 85 mg/dL- will set scale for PM for 0-10% reduction * Continued tightened CR- 115 mg/dL at lunch today 10/06/22 * Patient's BSGs yesterday were [phone] mg/dL. Steroids were discontinued after the first dose yesterday. * Patient now on prednisone 40 mg daily * Patient received 225 units of insulin yesterday (140 units of basal and 85 units of bolus). Patient's regimen remains basal heavy but improved in regards to the split. * Fasting BSG today is 89 mg/dL. * Will reduce basal rate to 80 units today (40 units BID or a 40% reduction). This was done because fasting BSG has trended down significantly and Solu- Medrol was discontinued. Hold NPH for today for prednisone hyperglycemia since patient's regimen was extremely basal heavy for the past several days. consider this tomorrow. * Tighten CR as patient did trend upwards after dinner. BACKGROUND * Ms Connelly is a 67 y/o F with a PMH of T2DM who presents with chest pain. She is very familiar to the glycemic service as during her past admission. During that admission, patient was very stable on Lantus 80 units BID plus Novolog CF 5 CR 1. * This admission, patient was started on Lantus 80 units BID plus Novolog CF 30 CR 9. Patient has been stable, if not with lower BSGs on this. (BSGs of 57-121-537-86 mg/dL on 10/03/22) * Yesterday, Solu-Medrol 40 mg IV q8 was started and BSGs trended upwards to 308 by the end of the day. She received 196 units of insulin yesterday (160 of basal and 36 units of bolus). This is in comparison to last admission when patient received consistently about 350 units of insulin. * Fasting today is 155 mg/dL. Patient is very basal heavy with the above regimen. Will give Lantus 80 units this AM then reduce basal by 20% to 60 units BID. * Due to steroids, will tighten Novolog significantly. Will not be as tight as last admission since the patient's glycemic needs do not appear to be as large. This may need to be loosened later if proves too aggressive at lunch. PLAN FOR INPATIENT GLYCEMIC CONTROL: * Basal insulin * Lantus 32/40 units SQ BID * Bolus insulin * NovoLog per scale ACHS or Q6hrs while NPO * Goal Range: Low 110 mg/dL - High 140 mg/dL * Correction Factor: 10 mg/dL/unit * Nutritional / Prandial insulin per carb ratio of 1 unit per 2.5 grams CHO consumed
[2022-10-07] MEDS ORDERED: SODIUM CHLOR 7% 4 ML NEB NEB SCH (19:00)
[2022-10-07] MEDS ORDERED: LANTUS PER UNIT CHARGE SQ SCH (21:00)
[2022-10-07] MEDS: ATORVASTATIN 40 MG TAB PO SCH (21:35)
[2022-10-08] MEDS: LEVOTHYROXINE SODIUM 25 MCG TABLET PO SCH (06:01)
[2022-10-08] MEDS: PANTOprazole 40 MG TAB PO SCH (06:01)
[2022-10-08] MEDS: LEVOTHYROXINE SODIUM 200 MCG TABLET PO SCH (06:02)
[2022-10-08] MEDS: TORSEMIDE 10 MG TAB PO SCH ×2 (06:02→14:51)
[2022-10-08] MEDS: HEPARIN SOD 5,000 UNIT/0.5 ML VIAL SQ SCH ×3 (06:10→21:05)
[2022-10-08 06:56] LABS: Calcium 9.5 mg/dl (8.5-10.1); Creatinine Clr Calc Pharmacy 38.6 ml/min; Est GFR (African American) 28.5 ml/min; Est GFR (Non-African American) 24.6 ml/min; Potassium 4.4 mmol/L (3.5-5.1)
[2022-10-08] MEDS: SODIUM CHLOR 7% 4 ML NEB NEB SCH ×2 (07:44→19:14)
[2022-10-08] MEDS: ALBUT/IPRATROP 3MG/0.5MG NEB 3 ML VIAL NEB SCH ×4 (07:44→19:14)
--- NOTE | 2022-10-08 08:14 | Hospitalist Progress Note ---
Date of Service October 08, 2022 Assessment & Plan (1) SOB (shortness of breath): Plan: Acute on Chronic related to COPD, OHS, RASHAAD, CHF (acute on chronic diastolic heart failure) Placed on duonebs QID, Viviana endorses using these 4x/daily in winter months when she is more at risk w/ infections Ordered mucomyst prior however patient declined this. Had ordered mucinex however patient reporting extreme dry mouth with such Given Solumedrol IV x 2 days, converted to prednisone 40mg 10/06, titrate by 10mg Q2D Upon evaluation 10/07, patient reported increased shortness of breath, appeared to have possible mucus plugging/difficulty clearing secretions and suspected volume overload from steroid use with increased wheezing/O2 use --> discussed hypertonic saline nebs, agreeable, and ordered BID. IMPROVEMENT after tx w/ hypertonic saline and lasix 40mg IV x 1 for congestion on CXR (likely from steroids...as well as salt intake, also weight up on admission) Patient reported able to clear lots of clear/white sputum, continues to have improvement and will continue these. Consider continuing at d/c as needed w/ congestion symptoms given suspected mucus plugging days prior Titrated to room air 10/07 and has remained stable. Reports improvement in breathing Prednisone to decrease to 30mg tomorrow -- decrease by 10mg Q2D Continue usual diuretic regimen for now given improvement. Monitor for any need for additional dosing vs increasing her torsemide to 20mg BID. Do suspect may need 1-2 additional doses while weaning off steroids. Changed to + AHA to diet -- patient inquired about why not getting vaughn on her tray for breakfast. Discussed sodium intake and worsening fluid retention and would like to limit sodium intake for today and encouraged lower salt intake/continued monitoring Weights/I&O as able (no weight in system currently) (2) Chronic diastolic congestive heart failure: Plan: Hx CAD/diastolic CHF Noted 15kg weight gain since 09/09 admission (139.5kg at d/c, 156kg on admit), however ? accuracy of weights given bedscale weights Given lasix 20mg IV in ED on admission ECHO w/ EF 45-50% (prior in 2020 w/ EF 55-60%), otherwise no changes On torsemide 10mg BID, spironolactone 25mg, metoprolol tartrate 12.mg BID (?changing to succinate), isosorbide, ASA, statin Increased O2 use/SOB/weight gain in system, suspected acute on chronic diastolic HF contributing to SOB as above 10/07, likely from fluid retention from steroids as well as salt intake Lasix 40mg IV on 10/07 with improvement, continue usual torsemide/spironolactone as patient appears euvolemic on exam possible slightly up, but stable on room air and Cr 2.05 on labs Was on Jardiance on admission last month -- appears was discontinued at discharge however given CHF, would be beneficial to restart this for management at discharge as well Monitor volume status in AM (3) Atypical chest pain: Plan: Reported on admit, trop negative x 2 CXR w/o acute process, cardiomegaly noted. ECHO as above EKG unchanged from priors DENIED chest pain to me, symptoms more of shortness of breath 10/07 -- tx as outlined Prior d/c tele 10/02 NO CP reported 10/08 (4) Cellulitis: Plan: Concern Cellulitis (mild) of RLE, - noted erythema and pain on palpation on b/l LE with 1 open skin lesion on left leg consistent with skin picking - received [address] [facility] - Changed by admitting resident to Daptomycin, discontinued and resumed oral Bactrim on 10/02 - No evidence of cellulitis at this time, completed course abx 10/06 (5) Weakness: Plan: Related to morbid obesity and chronic R femur fx PT/OT, CM for complex dc issues (6) Fracture of distal end of right femur: Plan: Chronic, NWB to RLE Pain control, PT/OT consulted (7) Hypothyroidism (acquired): Plan: Continue Levothyroxine, recent increased from 200mcg daily to 225mcg last admission (I increased her synthroid during last admission w/ fatigue/CHF/constipation symptoms last admission week 08/31) needing repeat labs in another 2-3 weeks (8) CKD stage 4 due to type 2 diabetes mellitus: Plan: Creat 1.58 previously (baseline 1.3-1.8) Cr elevated to 2.05, likely acute rise from increased diuretics on 10/07 Monitor for now/hold evening diuretic if needed now that on prednisone 40mg daily (plan to decrease to 30mg tomorrow) BMP in AM (9) GERD (gastroesophageal reflux disease): Plan: Continue protonix (10) Insulin-requiring or dependent type II diabetes mellitus: Plan: A1c 8.9, holding home agents BSG AC/HS while inpatient, utilizing SSI Prior elevations to 300s on 10/04, likely from IV solumedrol Pharmacy consulted for glycemic control 10/05 BSGs much improved and remaining stable Monitor w/ transition to PO prednisone, decreased to 30mg for AM with planned titration Q2D (11) Anxiety: Plan: Continue home medications Anxiety appears stable currently (12) Morbid obesity with BMI of 60.0-69.9, adult: Plan: - weight loss advised given that it is the root cause of many of her medical issues (13) Tinea: Plan: appears to b/l toenails, stated prior seen by Dr Crump, inquired if anyone would be able to cut them due to her being DM/unable to have someone come in prior Podiatry consulted, Dr Crump Saw patient 10/07, trimmed nails Need outpatient DFC f/u Plan PT/OT. Case management consult for complex dc needs. Patient does qualify for 90 hours of assistance per week of which she would require. She also will need wheelchair access to her home via ramp, as well as widened doorways to accommodate a wheelchair and repair of hole that is reported in the floor of her home for pt to safely be in her home. She would also require chair lift to get her from first floor to second floor. This has also been documented during her previous admission. Pt is refusing to return to [facility] and during her last admission was refusing to outside of the immediate area. 10/08 Discussed with CM to contact Viviana's labels molder (voicemail x 2, hasn't heard back - she is going to call again this afternoon) She does have 90hours of caregivers arranged to begin 10/21, however will need to see what all needs completed to safely make this happen. Unclear if will remain inpatient in the meantime or if placement will be successful. Viviana tells me she had aides screaming at her at [facility] to participate in therapy and her daughter heard them on speaker. She was also told when she was leaving to "not return as they can't take care of you Viviana". This was relayed to CM as well Admission and Anticipated Discharge Date Admission Date: October 01, 2022 Subjective Patient evaluated this morning, doing much better Hypertonic saline nebs effective at allowing her to bring up lots of junk afterwords. Remains clear/white in color. Did feel little dry and had a little bit of blood on one episode but nothing since then. Podiatry saw and cut toenails yesterday, did loose her nail on hallux to the L foot. No evidence for infection. Will need outpt f/u. Of note, wondered why she didn't get vaughn like she got yesterday. Discussed AHA diet/salt retention/fluid overload yesterday. Will continue AHA diet for now, consider loosening in a little bit. Did move her bowels overnight, feeling much better with that as well. CM to contact her labels molder. Staying inpatient until plan in place. Review of Systems Review of Systems: All systems reviewed & are unremarkable except as noted in HPI & below Physical Exam Physical Exam: General: WD/morbidly obese female sitting up in bed, NAD , less coughing, no audible wheezing, reporting feeling MUCH better than yesterday HEENT: head normocephalic, thick neck, +metal trach, mmm less dry with biotin spray Resp: diminished in the bases, anterior rhonchi resolved, diminished in the bases, improvement in aeration throughout, faint end expiratory wheezing posterior lung hale, on ROOM AIR CV: RRR, no m/r/g, no pitting edema, calves nontender, cap refill wnl MSK/Neuro: generalized weakness b/l LE, NVI, pulses palpable Psych: AOx3, cooperative and pleasant Skin: dry flaking to LE, no further cellulitis/erythema, opened scab covered with optifoam to L medial inferior knee, nonpainful toenails with fungal appearance s/p trimming 1st hallux nail on the left unroofed/removed by podiatry yesterday, no [place] inage/pain/erythema Results & Data Results & Data ([facility]) Vital Signs (Past 12 Hours) Vital Signs Temp Pulse Resp BP Pulse Ox O2 Del Method O2 Flow Rate 10/08/22 07:49 79 20 96 Room Air 10/08/22 07:14 36.7 C 64 18 123/68 97 Trach Collar 7 10/07/22 23:32 Trach Collar 10/07/22 21:58 36.8 C 82 18 141/70 H 93 Room Air Laboratory Results 10/08/22 10/08/22 10/08/22 Range/Units 12:11 08:12 05:49 Sodium 137 (136-145) mmol/L Potassium 4.4 (3.5-5.1) mmol/L Chloride 104 (98-107) mmol/L Carbon Dioxide 27 (21-32) mmol/L Anion Gap 6 (3-11) BUN 41 H (6-23) mg/dl Creatinine 2.05 H (0.6-1.2) mg/dl Est Cr Clr Drug Dosing 38.6 ml/min Est GFR ( Amer) 28.5 ml/min Est GFR (Non-Af Amer) 24.6 ml/min BUN/Creatinine Ratio 20.0 (10-20) Glucose 86 (70-99(Fasting)) mg/dl POC Glucose 125 H 82 (70-99) mg/dl Calcium 9.5 (8.5-10.1) mg/dl 10/07/22 10/07/22 Range/Units 20:10 17:01 Sodium (136-145) mmol/L Potassium (3.5-5.1) mmol/L Chloride (98-107) mmol/L Carbon Dioxide (21-32) mmol/L Anion Gap (3-11) BUN (6-23) mg/dl Creatinine (0.6-1.2) mg/dl Est Cr Clr Drug Dosing ml/min Est GFR ( Amer) ml/min Est GFR (Non-Af Amer) ml/min BUN/Creatinine Ratio (10-20) Glucose (70-99(Fasting)) mg/dl POC Glucose 189 H 191 H (70-99) mg/dl Calcium (8.5-10.1) mg/dl PG Care Time/CCT Total # of Minutes Spent Total Time Spent with Patient: Total time spent is greater than 50% in coordination of care (as documented) at patient's floor/unit and/or counseling patient: Coding Level of Care Code 32262 Subseq Hosp Care Lvl 3 Diagnoses SOB (shortness of breath) R06.02 Chronic diastolic congestive heart failure I50.32 Atypical chest pain R07.89 Cellulitis L03.90 Weakness R53.1 Fracture of distal end of right femur S72.401A Hypothyroidism (acquired) E03.9 CKD stage 4 due to type 2 diabetes mellitus E11.22; N18.4 GERD (gastroesophageal reflux disease) K21.9 Insulin-requiring or dependent type II diabetes mellitus E11.9; Z79.4 Anxiety F41.9 Morbid obesity with BMI of 60.0-69.9, adult E66.01; Z68.44 Tinea B35.9
[2022-10-08] MEDS ORDERED: SODIUM CHLORIDE 0.65% NA SOLN 45 ML (OCEAN) ONE (08:15)
[2022-10-08] MEDS: INSULIN ASPART PER UNIT SC SCH ×4 (08:46→21:11)
[2022-10-08] MEDS: METOPROLOL TARTRATE 25 MG TAB PO SCH ×2 (08:47→21:03)
[2022-10-08] MEDS: TOPIRAMATE 100 MG TAB PO SCH ×2 (08:47→21:04)
[2022-10-08] MEDS: LANTUS PER UNIT CHARGE SQ SCH ×2 (08:47→21:11)
[2022-10-08] MEDS: ISOSORBIDE MONO EXTENDED REL 30 MG TABCR PO SCH (08:48)
[2022-10-08] MEDS: predniSONE 20 MG TAB PO SCH (08:48)
[2022-10-08] MEDS: MULTIVITAMIN TAB PO SCH (08:48)
[2022-10-08] MEDS: buPROPion SR 100 MG TABCR PO SCH ×2 (08:48→21:04)
[2022-10-08] MEDS: FOLIC ACID 1 MG TAB PO SCH (08:48)
[2022-10-08] MEDS: MAGNESIUM OXIDE 400 MG TAB PO SCH (08:48)
[2022-10-08] MEDS: SPIRONOLACTONE 25 MG TAB PO SCH (08:48)
[2022-10-08] MEDS: ASPIRIN 81 MG ECTAB PO SCH (08:48)
[2022-10-08] MEDS: DOCUSATE SODIUM 100 MG CAP PO SCH ×2 (08:56→23:36)
[2022-10-08] MEDS: oxyCODONE HCL IR 5 MG TAB (IMMEDIATE RELEASE) PO PRN (12:03)
[2022-10-08] MEDS: ATORVASTATIN 40 MG TAB PO SCH (21:03)
[2022-10-09] MEDS: PANTOprazole 40 MG TAB PO SCH (06:13)
[2022-10-09] MEDS: LEVOTHYROXINE SODIUM 25 MCG TABLET PO SCH (06:13)
[2022-10-09] MEDS: LEVOTHYROXINE SODIUM 200 MCG TABLET PO SCH (06:13)
[2022-10-09] MEDS: HEPARIN SOD 5,000 UNIT/0.5 ML VIAL SQ SCH ×3 (06:13→20:49)
[2022-10-09] MEDS: ALBUT/IPRATROP 3MG/0.5MG NEB 3 ML VIAL NEB SCH ×4 (07:27→19:22)
[2022-10-09] MEDS: SODIUM CHLOR 7% 4 ML NEB NEB SCH ×2 (07:27→19:22)
[2022-10-09 08:08] LABS: BUN Creatinine Ratio 23.1 (10-20); Calcium 9.1 mg/dl (8.5-10.1); Creatinine Clr Calc Pharmacy 46.8 ml/min; Est GFR (African American) 36.1 ml/min; Est GFR (Non-African American) 31.1 ml/min; Potassium 4.2 mmol/L (3.5-5.1)
[2022-10-09] MEDS: MAGNESIUM OXIDE 400 MG TAB PO SCH (08:18)
[2022-10-09] MEDS: METOPROLOL TARTRATE 25 MG TAB PO SCH ×2 (08:18→20:29)
--- NOTE | 2022-10-09 08:18 | Hospitalist Progress Note ---
Date of Service October 09, 2022 Assessment & Plan (1) SOB (shortness of breath): Plan: Acute on Chronic related to COPD, OHS, RASHAAD, CHF (acute on chronic diastolic heart failure) Placed on duonebs QID -- Viviana endorses using these 4x/daily in winter months when she is more at risk w/ infections Ordered mucomyst prior however patient declined this. Had ordered mucinex however patient reporting extreme dry mouth with such Given Solumedrol IV x 2 days, converted to prednisone 40mg 10/06, decreased to 30mg 10/09 titrate by 10mg Q2D Upon evaluation 10/07, patient reported increased shortness of breath, appeared to have possible mucus plugging/difficulty clearing secretions and suspected volume overload from steroid use with increased wheezing/O2 use * Added Hypertonic saline nebs 10/07 * Lasix 40mg IV x1 for congestion on CXR/weight gain/fluid retention from steroids Significant improvement with such and will continue 97% on RA at baseline Prednisone -- possible decrease to 20mg for tomorrow/quicker taper given appears move volume overload/weight up Lasix 20mg IV x 1 TODAY (given 40mg IV x 1 on 10/07) Continue AHA diet Monitor (2) Chronic diastolic congestive heart failure: Plan: Hx CAD/diastolic CHF Noted 15kg weight gain since 09/09 admission (139.5kg at d/c, 156kg on admit), however ? accuracy of weights given bedscale weights Given lasix 20mg IV in ED on admission ECHO w/ EF 45-50% (prior in 2020 w/ EF 55-60%), otherwise no changes On torsemide 10mg BID, spironolactone 25mg, metoprolol tartrate 12.mg BID (?changing to succinate), isosorbide, ASA, statin Increased O2 use/SOB/weight gain in system, suspected acute on chronic diastolic HF contributing to SOB as above 10/07, likely from fluid retention from steroids as well as salt intake Lasix 40mg IV on 10/07 with improvement, did hold off further IV diuretics given bump in Cr to 2.05 which is improved this morning to 1.69 on her usual diuretics 10/08 Order for 20mg IV lasix around noon this afternoon between her torsemide dosing and will monitor volume status in AM/additional diuretics as needed. As noted, do suspect will need additional diuretics periodically while on the steroids but hopefully adjustment to AHA diet/salt restriction will also help Was on Jardiance on admission last month -- appears was discontinued at discharge however given CHF, would be beneficial to restart this for management at discharge as well (3) Atypical chest pain: Plan: Reported on admit, trop negative x 2 CXR w/o acute process, cardiomegaly noted. ECHO as above EKG unchanged from priors DENIED chest pain to me, symptoms more of shortness of breath 10/07 -- tx as outlined Prior d/c tele 10/02 NO CP reported 10/08 however did report some epigastric discomfort, appears steroid related No bleeding reported Has been on protonix daily, will add pepcid for now given CKD but could consider increasing to BID for GI proph while on steroids Monitor response w/ pepcid EKG w/ CP (4) Cellulitis: Plan: Concern Cellulitis (mild) of RLE, - noted erythema and pain on palpation on b/l LE with 1 open skin lesion on left leg consistent with skin picking - received 1 day bactrim at [facility] - Changed by admitting resident to Daptomycin, discontinued and resumed oral Bactrim on 10/02 - No evidence of cellulitis at this time, completed course abx 10/06 (5) Weakness: Plan: Related to morbid obesity and chronic R femur fx PT/OT, CM for complex dc issues (6) Fracture of distal end of right femur: Plan: Chronic, NWB to RLE Pain control, PT/OT consulted (7) Hypothyroidism (acquired): Plan: Continue Levothyroxine, recent increased from 200mcg daily to 225mcg last admission (I increased her synthroid during last admission w/ fatigue/CHF/constipation symptoms last admission week 08/31) needing repeat labs in another 2-3 weeks (8) CKD stage 4 due to type 2 diabetes mellitus: Plan: Creat 1.58 previously (baseline 1.3-1.8) Cr elevated to 2.05 on 10/08, likely acute rise from increased diuretics on 10/07 Decreased steroids as above, changed diet to AHA (remains on DM diet as well) Cr improved to 1.69 and in baseline Additional 1x lasix 20mg IV for 10/09 and will monitor Cr on Am labs (9) GERD (gastroesophageal reflux disease): Plan: Continue protonix , consider increasing to BID but will add pepcid for now (10) Insulin-requiring or dependent type II diabetes mellitus: Plan: A1c 8.9, holding home agents BSG AC/HS while inpatient, utilizing SSI Prior elevations to 300s on 10/04, likely from IV solumedrol Pharmacy consulted for glycemic control 10/05 BSGs much improved and remaining stable Monitor w/ transition to PO prednisone, decreased to 30mg for AM with planned titration Q2D but consider quicker taper given prior COPD exacerbations to include 5 day course (has gotten 2 days IV solumedrol and 3 days of 40mg daily) consider d/c tomorrow (11) Anxiety: Plan: Continue home medications Anxiety appears stable currently (12) Morbid obesity with BMI of 60.0-69.9, adult: Plan: - weight loss advised given that it is the root cause of many of her medical issues (13) Tinea: Plan: appears to b/l toenails, stated prior seen by Dr Crump, inquired if anyone would be able to cut them due to her being DM/unable to have someone come in prior Podiatry consulted, Dr Crump Saw patient 10/07, trimmed nails Need outpatient [facility] f/u Plan PT/OT. Case management consult for complex dc needs. Patient does qualify for 90 hours of assistance per week of which she would require. She also will need wheelchair access to her home via ramp, as well as widened doorways to accommodate a wheelchair and repair of hole that is reported in the floor of her home for pt to safely be in her home. She would also require chair lift to get her from first floor to second floor. This has also been documented during her previous admission. Pt is refusing to return to [facility] and during her last admission was refusing to outside of the immediate area. 10/08 Discussed with CM to contact Viviana's road freight brake coupler (voicemail x 2, hasn't heard back - she is going to call again this afternoon) She does have 90hours of caregivers arranged to begin 10/21, however will need to see what all needs completed to safely make this happen. Unclear if will remain inpatient in the meantime or if placement will be successful. Viviana tells me she had aides screaming at her at [facility] to participate in therapy and her daughter heard them on speaker. She was also told when she was leaving to "not return as they can't take care of you Viviana". This was relayed to CM as well 10/09 -- CM note from last evening "Left message for Pt's direct care specialist, Dannielle. Advised this is my 3rd message to her with no return call. Advised that Case Management needs to know if she received script for home repairs. We need to know if they received it and have started to work on finding service. This is imperative to know for our discharge planning. Requested that she please return call to case Management." Admission and Anticipated Discharge Date Admission Date: October 01, 2022 Supervising Physician Co-Signing Physician Notes Chart reviewed and case discussed with PA. Agree with assessment and plan Subjective eval this morning, doing alright coughing up thick white mucus. no further blood noted states has some epigastric discomfort/reflux, probably from steroids. will add pepcid/see if effective discussed breathing -- states has been better, but remains on room air discussed low dose diuretic for today and will attempt to decrease steroids further tomorrow continuing aha diet for now, patient cooperative with such given improvement in Cr and volume status working against her w/ sodium intake. no fever/chills, nausea/vomiting, abdominal pain reported. questions/concerns addressed cm awaiting return call from road freight brake coupler Review of Systems Review of Systems: All systems reviewed & are unremarkable except as noted in HPI & below Physical Exam Physical Exam: General: WD/morbidly obese female sitting up in bed, NAD , less coughing, no audible wheezing, remains on room air HEENT: head normocephalic, thick neck, +metal trach, mmm Resp: diminished in the bases, anterior rhonchi resolved, diminished in the bases, but has end expiratory wheezing posterior lung hale, worse in the bases, on room air CV: RRR, no m/r/g, no pitting edema, calves nontender, cap refill wnl MSK/Neuro: generalized weakness b/l LE, NVI, pulses palpable Psych: AOx3, cooperative and pleasant Skin: dry flaking to LE, no further cellulitis/erythema, opened scab covered with optifoam to L medial inferior knee, nonpainful toenails with fungal appearance s/p trimming 1st hallux nail on the left unroofed/removed by podiatry , no drainage/pain/erythema Results & Data Results & Data ([facility]) Vital Signs (Past 12 Hours) Vital Signs Temp Pulse Resp BP Pulse Ox O2 Del Method 10/09/22 08:02 Room Air 10/09/22 07:30 66 20 96 Room Air 10/09/22 07:21 36.4 C L 68 16 112/63 94 Room Air 10/08/22 21:55 36.6 C 77 18 102/64 98 Room Air 10/08/22 20:57 36.5 C 81 16 129/67 93 Room Air 10/08/22 20:26 Room Air Laboratory Results 10/09/22 10/09/22 10/09/22 Range/Units 11:46 08:08 07:31 Sodium 136 (136-145) mmol/L Potassium 4.2 (3.5-5.1) mmol/L Chloride 104 (98-107) mmol/L Carbon Dioxide 27 (21-32) mmol/L Anion Gap 5 (3-11) BUN 39 H (6-23) mg/dl Creatinine 1.69 H D (0.6-1.2) mg/dl Est Cr Clr Drug Dosing 46.8 ml/min Est GFR ( Amer) 36.1 ml/min Est GFR (Non-Af Amer) 31.1 ml/min BUN/Creatinine Ratio 23.1 H (10-20) Glucose 104 H (70-99(Fasting)) mg/dl POC Glucose 185 H 102 H (70-99) mg/dl Calcium 9.1 (8.5-10.1) mg/dl 10/08/22 10/08/22 10/08/22 Range/Units 20:19 17:14 12:11 Sodium (136-145) mmol/L Potassium (3.5-5.1) mmol/L Chloride (98-107) mmol/L Carbon Dioxide (21-32) mmol/L Anion Gap (3-11) BUN (6-23) mg/dl Creatinine (0.6-1.2) mg/dl Est Cr Clr Drug Dosing ml/min Est GFR ( Amer) ml/min Est GFR (Non-Af Amer) ml/min BUN/Creatinine Ratio (10-20) Glucose (70-99(Fasting)) mg/dl POC Glucose 155 H 210 H 125 H (70-99) mg/dl Calcium (8.5-10.1) mg/dl PG Care Time/CCT Total # of Minutes Spent Total Time Spent with Patient: Total time spent is greater than 50% in coordination of care (as documented) at patient's floor/unit and/or counseling patient: Coding Level of Care Code 39921 Subseq Hosp Care Lvl 3 Diagnoses SOB (shortness of breath) R06.02 Chronic diastolic congestive heart failure I50.32 Atypical chest pain R07.89 Cellulitis L03.90 Weakness R53.1 Fracture of distal end of right femur S72.401A Hypothyroidism (acquired) E03.9 CKD stage 4 due to type 2 diabetes mellitus E11.22; N18.4 GERD (gastroesophageal reflux disease) K21.9 Insulin-requiring or dependent type II diabetes mellitus E11.9; Z79.4 Anxiety F41.9 Morbid obesity with BMI of 60.0-69.9, adult E66.01; Z68.44 Tinea B35.9
[2022-10-09] MEDS: ISOSORBIDE MONO EXTENDED REL 30 MG TABCR PO SCH (08:19)
[2022-10-09] MEDS: MULTIVITAMIN TAB PO SCH (08:19)
[2022-10-09] MEDS: ASPIRIN 81 MG ECTAB PO SCH (08:19)
[2022-10-09] MEDS: TORSEMIDE 10 MG TAB PO SCH ×2 (08:19→14:40)
[2022-10-09] MEDS: FOLIC ACID 1 MG TAB PO SCH (08:19)
[2022-10-09] MEDS: TOPIRAMATE 100 MG TAB PO SCH ×2 (08:20→20:29)
[2022-10-09] MEDS: SPIRONOLACTONE 25 MG TAB PO SCH (08:20)
[2022-10-09] MEDS: buPROPion SR 100 MG TABCR PO SCH ×2 (08:20→20:31)
[2022-10-09] MEDS: DOCUSATE SODIUM 100 MG CAP PO SCH ×2 (08:21→20:48)
[2022-10-09] MEDS: INSULIN ASPART PER UNIT SC SCH ×4 (08:45→20:41)
[2022-10-09] MEDS: LANTUS PER UNIT CHARGE SQ SCH (08:46)
[2022-10-09] MEDS ORDERED: predniSONE 10 MG TABLET PO SCH (09:00)
[2022-10-09] MEDS ORDERED: FUROSEMIDE INJ 20 MG/2 ML VIAL IV ONE (12:15)
[2022-10-09] MEDS ORDERED: FAMOTIDINE 10 MG TABLET PO ONE (12:15)
[2022-10-09] MEDS: oxyCODONE HCL IR 5 MG TAB (IMMEDIATE RELEASE) PO PRN (12:24)
[2022-10-09] MEDS: ATORVASTATIN 40 MG TAB PO SCH (20:30)
[2022-10-09] MEDS ORDERED: LANTUS PER UNIT CHARGE SQ SCH (21:00)
[2022-10-10] MEDS: LEVOTHYROXINE SODIUM 25 MCG TABLET PO SCH (06:02)
[2022-10-10] MEDS: LEVOTHYROXINE SODIUM 200 MCG TABLET PO SCH (06:02)
[2022-10-10] MEDS: PANTOprazole 40 MG TAB PO SCH (06:02)
[2022-10-10] MEDS: HEPARIN SOD 5,000 UNIT/0.5 ML VIAL SQ SCH ×3 (06:03→20:20)
[2022-10-10] MEDS: TORSEMIDE 10 MG TAB PO SCH (06:04)
[2022-10-10] MEDS: ALBUT/IPRATROP 3MG/0.5MG NEB 3 ML VIAL NEB SCH ×4 (07:15→19:53)
[2022-10-10] MEDS: SODIUM CHLOR 7% 4 ML NEB NEB SCH ×2 (07:15→19:53)
--- NOTE | 2022-10-10 08:09 | Hospitalist Progress Note ---
Date of Service October 10, 2022 Assessment & Plan (1) Chronic diastolic congestive heart failure: Plan: Hx CAD/diastolic CHF -- suspected cause for admission for her "atypical chest pain" with complaints of increased shortness of breath and noted weight gain in system 15kg increased since 09/09 (139.5kg at d/c, 156kg recorded on admit, however do suspect some degree of inaccuracy given mostly bedscale weights) * MANDREL PULLER on torsemide 10mg BID (in past 20mg BID), spironolactone 25mg, metoprolol tartrate 12.mg BID (?changing to succinate), isosorbide, ASA, statin * Of note, was on Jardiance on admission last month -- appears was discontinued at discharge however given CHF, would be beneficial to restart this for management at discharge as well ECHO w/ WORSENED EF --> now 45-50% (prior in 2020 w/ EF 55-60%) Given lasix 20mg IV in ED on admission, nothing further until I picked her up on 10/07 and patient had increased O2 use at rest/not sleeping, congestion on exam, confirmed w/ CXR w/ pulmonary edema after being given 2 days of IV solumedrol for SOB symptoms and transitioned to prednisone (since discontinued after discussion with pulmonology 10/09) * Lasix 40mg IV on 10/07 with improvement, held for 10/08 given rise in Cr to >2 at 2.05 and improved to 1.69 on repeat. * Additional 20mg IV lasix on 10/09 w/ Cr improved to 1.53 * Additional 40mg IV lasix x 1 now (10/10), cardiology consult pending as above Continue AHA diet/low salt Weights not accurate, have not obtained recently -- will ask RN to check bedscale at least for comparison if unable to get standing Monitor I&O and kidney function (improving with lasix given) Cardiology consult pending -- follows with Dr Marley. May be able to resume Jardiance now available inpatient for CHF indication Also discussed given risk if she develops PE given bedbound/immobilized state, may consider DVT proph w/ low dose Xarelto vs Eliquis at d/c. Will continue Heparin SQ while inpatient for now (2) SOB (shortness of breath): Plan: Acute on Chronic related to COPD, OHS, RASHAAD, CHF (acute on chronic diastolic heart failure). Not on Na restricted diet at SNF, also had her SGLT-2 inhibitor stopped at discharge last admit, suspect worsened HF, now w/ reduced EF to 45- 50% Placed on duonebs QID -- Viviana endorses using these 4x/daily in winter months w hen she is more at risk w/ infections Ordered mucomyst prior however patient declined this. Had ordered mucinex however patient reporting extreme dry mouth with such Given Solumedrol IV x 2 days, converted to prednisone 40mg 10/06, decreased to 30mg 10/09 titrate by 10mg Q2D --> DISCONTINUED given suspect related to CHF more than pneumonitis/COPD exacerbation (of note, she did have notes in outpatient pulm in past with increased wheezing after bactrim use ...she did just get done w/ use for such for a cellulitis) Upon evaluation 10/07, patient reported increased shortness of breath, appeared to have possible mucus plugging/difficulty clearing secretions and suspected volume overload from steroid use with increased wheezing/O2 use, confirmed on CXR * Lasix 40mg IV x1 ordered, additional 20mg IV given 10/09 Added hypertonic saline nebs 10/07 for mucus plugging/reported inability to clear secretions --> improved and continued on such. Continues chest physiotherapy/vibration vest as well Additional 40mg IV lasix to be provided this afternoon given improvement w/ lasix on 10/09 and improvement in Cr--> likely needing increased diuretic regimen and resumption of SGLT-2 but will await further input from cardiology (prior on torsemide 20mg BID, metolazone, had been on lasix gtt in past) *Of note, prior bactrim use in past w/ increased wheezing -- could consider pneumonitis from medication, but suspect moreso aspect of acute on chronic CHF exacerbation as outlined above Remains on RA, AHA diet Cardiology consulted as outlined below for suspect CHF given weight gain/congestion on CXR/worsened EF/prednisone use and d/c of prior Jardiance at d/c last admit for unclear reason (3) Atypical chest pain: Plan: Reported on admit, reason for reported admission Trop negative x 2 CXR w/o acute process ON ADMIT, subsequent noted pulmonary congestion as above, ECHO w/ worse EF EKG unchanged from prior Tele d/c'd 10/02 No CP reported 10/08, however had some reflux symptoms on 10/09 which have resolved and stayed stable with addition of pepcid. Suspect reflux from steroid use EKG w/ CP Monitor (4) Cellulitis: Plan: Concern Cellulitis (mild) of RLE, - noted erythema and pain on palpation on b/l LE with 1 open skin lesion on left leg consistent with skin picking - received 1 day Bactrim at [facility] - Changed by admitting resident to Daptomycin, discontinued and resumed oral Bactrim on 10/02 - No evidence of cellulitis at this time, completed course abx 10/06 *Of note, prior Bactrim use in past w/ increased wheezing -- could consider pneumonitis from medication, but suspect moreso aspect of acute on chronic CHF exacerbation as outlined above (5) Weakness: Plan: Related to morbid obesity and chronic R femur fx PT/OT, CM for complex dc issues (6) Fracture of distal end of right femur: Plan: Chronic, NWB to RLE Pain control, PT/OT consulted (7) Hypothyroidism (acquired): Plan: Continue Levothyroxine, recent increased from 200mcg daily to 225mcg last admission (I increased her Synthroid during last admission w/ fatigue/CHF/constipation symptoms last admission week 08/31) needing repeat labs in another 2-3 weeks (8) CKD stage 4 due to type 2 diabetes mellitus: Plan: Creat 1.58 previously (baseline 1.3-1.8) Cr elevated to 2.05 on 10/08, likely acute rise from increased diuretics on 10/07 and improved on repeat and further improved after IV Lasix on 10/09 to 1.53 Additional Lasix as above, cards consult as outlined Monitor BMP in AM (9) GERD (gastroesophageal reflux disease): Plan: Continue protonix , consider increasing to BID but will add pepcid for now (10) Insulin-requiring or dependent type II diabetes mellitus: Plan: A1c 8.9, holding home agents BSG AC/HS while inpatient, utilizing SSI Prior elevations to 300s on 10/04, likely from IV solu-medrol Pharmacy consulted for glycemic control 10/05 pharmacy on consult, adjustments for today given prednisone discontinued to loosen coverage. BSGs have been great (11) Anxiety: Plan: Continue home medications Anxiety appears stable currently (12) Morbid obesity with BMI of 60.0-69.9, adult: Plan: - weight loss advised given that it is the root cause of many of her medical issues (13) Tinea: Plan: appears to b/l toenails, stated prior seen by Dr Crump, inquired if anyone would be able to cut them due to her being DM/unable to have someone come in prior Podiatry consulted, Dr Crump Saw patient 10/07, trimmed nails Need outpatient DFC f/u (14) DVT prophylaxis: Plan: Heparin SQ while inpatient discussed w/ cards, entertaining low dose xarelto 10mg vs eliquis 2.5mg BID at d/c for DVT prophylaxis given limited mobility/immobilized state/bed bound Plan PT/OT. Case management consult for complex dc needs. Patient does qualify for 90 hours of assistance per week of which she would require. She also will need wheelchair access to her home via ramp, as well as widened doorways to accommodate a wheelchair and repair of hole that is reported in the floor of her home for pt to safely be in her home. She would also require chair lift to get her from first floor to second floor. This has also been documented during her previous admission. Pt is refusing to return to [facility] and during her last admission was refusing to outside of the immediate area. Continued inpatient stay -- placement vs home unclear at this time. Came from [facility], Viviana tells me she had aides screaming at her at [facility] to participate in therapy and her daughter heard them on speaker. She was also told when she was leaving to "not return as they can't take care of you Viviana". This was relayed to CM as well 10/09 -- CM note from last evening "Left message for Pt's insurance healthcare consultant, Dannielle. Advised this is my 3rd message to her with no return call. Advised that Case Management needs to know if she received script for home repairs. We need to know if they received it and have started to work on finding service. This is imperative to know for our discharge planning. Requested that she please return call to case Management." She reports having 90 hours of caregivers arranged to begin on 10/21 (confirmed w/ CM). 10/10 --improving w/ diuretics, cardiology consulted. likely additional diuretics but awaiting official consult for recs Admission and Anticipated Discharge Date Admission Date: October 01, 2022 Subjective eval this morning, reports breathing improved since additional Lasix yesterday. discussed consultation w/ dr Marley for further management given prior missed appt. eating/drinking no issues, BSGs acceptable, moving her bowels. Discussed also prior Bactrim use -- she states her daughter Oscar asked the same thing about wheezing after use given prior episode. Discussed if used again in future may need to consider this a reaction, however suspect given weight gain/difficulty breathing/congestion and her jardiance discontinued last admission w/ worsening EF on ECHO that this does sound like more CHF. Was previously on metolazone in the past. Discussed discontinuing further steroids, likely additional lasix or other diuretics for today but will convene with Dr Marley prior to ordering. Questions/concerns addressed at this time. Messaged Dr Marley, to see patient today. Agrees, likely needing more not less diuretics. Was on torsemide 20mg BID in past. Did order additional 1x dose lasix for noon w/ potassium, resumed her K supplementation as placed on hold prior day given rise in K w/ continued supplementation in patient with CKD. Review of Systems Review of Systems: All systems reviewed & are unremarkable except as noted in HPI & below Physical Exam Physical Exam: General: WD/morbidly obese female sitting up in bed, NAD , less coughing, no audible wheezing, remains on room air 93% HEENT: head normocephalic, thick neck, +metal trach, mmm Resp: diminished in the bases, anterior rhonchi resolved but is diminished in the bases and with end expiratory wheezing primarily posterior lower lung hale, on room air CV: RRR, no m/r/g, no pitting edema, calves nontender, cap refill wnl MSK/Neuro: generalized weakness b/l LE, NVI, pulses palpable Psych: AOx3, cooperative and pleasant Skin: dry flaking to LE, no further cellulitis/erythema, opened scab covered with optifoam to L medial inferior knee, nonpainful toenails with fungal appearance s/p trimming 1st hallux nail on the left unroofed/removed by podiatry , no drainage/pain/erythema Results & Data Results & Data ([facility]) Vital Signs (Past 12 Hours) Vital Signs Temp Pulse Resp BP Pulse Ox O2 Del Method 10/10/22 07:21 67 18 94 Room Air 10/09/22 22:27 36.6 C 68 18 118/69 93 Room Air 10/09/22 20:27 88 128/70 Laboratory Results 10/10/22 10/10/22 10/10/22 Range/Units 12:48 08:23 08:00 Sodium 138 (136-145) mmol/L Potassium 3.6 (3.5-5.1) mmol/L Chloride 103 (98-107) mmol/L Carbon Dioxide 26 (21-32) mmol/L Anion Gap 9 (3-11) BUN 37 H (6-23) mg/dl Creatinine 1.53 H (0.6-1.2) mg/dl Est Cr Clr Drug Dosing 51.7 ml/min Est GFR ( Amer) 40.7 ml/min Est GFR (Non-Af Amer) 35.1 ml/min BUN/Creatinine Ratio 24.2 H (10-20) Glucose 101 H (70-99(Fasting)) mg/dl POC Glucose 129 H 104 H (70-99) mg/dl Calcium 9.2 (8.5-10.1) mg/dl 10/09/22 10/09/22 Range/Units 20:14 16:45 Sodium (136-145) mmol/L Potassium (3.5-5.1) mmol/L Chloride (98-107) mmol/L Carbon Dioxide (21-32) mmol/L Anion Gap (3-11) BUN (6-23) mg/dl Creatinine (0.6-1.2) mg/dl Est Cr Clr Drug Dosing ml/min Est GFR ( Amer) ml/min Est GFR (Non-Af Amer) ml/min BUN/Creatinine Ratio (10-20) Glucose (70-99(Fasting)) mg/dl POC Glucose 224 H 240 H (70-99) mg/dl Calcium (8.5-10.1) mg/dl PG Care Time/CCT Total # of Minutes Spent Total Time Spent with Patient: Total time spent is greater than 50% in coordination of care (as documented) at patient's floor/unit and/or counseling patient: Coding Level of Care Code 96108 Subseq Hosp Care Lvl 3 Diagnoses Chronic diastolic congestive heart failure I50.32 SOB (shortness of breath) R06.02 Atypical chest pain R07.89 Cellulitis L03.90 Weakness R53.1 Fracture of distal end of right femur S72.401A Hypothyroidism (acquired) E03.9 CKD stage 4 due to type 2 diabetes mellitus E11.22; N18.4 GERD (gastroesophageal reflux disease) K21.9 Insulin-requiring or dependent type II diabetes mellitus E11.9; Z79.4 Anxiety F41.9 Morbid obesity with BMI of 60.0-69.9, adult E66.01; Z68.44 Tinea B35.9 DVT prophylaxis Z29.9
[2022-10-10] MEDS: FOLIC ACID 1 MG TAB PO SCH (08:51)
[2022-10-10] MEDS: buPROPion SR 100 MG TABCR PO SCH ×2 (08:51→20:19)
[2022-10-10] MEDS: METOPROLOL TARTRATE 25 MG TAB PO SCH ×2 (08:51→20:19)
[2022-10-10] MEDS: TOPIRAMATE 100 MG TAB PO SCH ×2 (08:51→20:19)
[2022-10-10] MEDS: ISOSORBIDE MONO EXTENDED REL 30 MG TABCR PO SCH (08:51)
[2022-10-10] MEDS: MULTIVITAMIN TAB PO SCH (08:52)
[2022-10-10] MEDS: MAGNESIUM OXIDE 400 MG TAB PO SCH (08:52)
[2022-10-10] MEDS: LANTUS PER UNIT CHARGE SQ SCH ×2 (08:52→21:34)
[2022-10-10] MEDS: ASPIRIN 81 MG ECTAB PO SCH (08:52)
[2022-10-10] MEDS: SPIRONOLACTONE 25 MG TAB PO SCH (08:52)
[2022-10-10] MEDS: DOCUSATE SODIUM 100 MG CAP PO SCH ×2 (08:54→20:20)
[2022-10-10] MEDS: INSULIN ASPART PER UNIT SC SCH ×4 (08:54→21:34)
[2022-10-10 09:36] LABS: BUN Creatinine Ratio 24.2 (10-20); Calcium 9.2 mg/dl (8.5-10.1); Creatinine Clr Calc Pharmacy 51.7 ml/min; Est GFR (African American) 40.7 ml/min; Est GFR (Non-African American) 35.1 ml/min; Potassium 3.6 mmol/L (3.5-5.1)
[2022-10-10] MEDS ORDERED: POTASSIUM CHLORIDE CRTAB 20 MEQ TABCR PO STA (10:18)
[2022-10-10] MEDS: oxyCODONE HCL IR 5 MG TAB (IMMEDIATE RELEASE) PO PRN (10:35)
[2022-10-10] MEDS ORDERED: NYSTATIN POWDER 15GM BTL EXT PRN (11:58)
[2022-10-10] MEDS ORDERED: FUROSEMIDE 40 MG/4 ML VIAL IV ONE (12:00)
--- NOTE | 2022-10-10 13:08 | Pharmacy Report ---
Pharmacy Glycemic Short Note 2 - Date of Service October 10, 2022 - Glycemic Short BSG Results (Last 24 hours): 10/09/22 10/09/22 10/10/22 16:45 20:14 08:00 Glucose 101 H POC Glucose 240 H 224 H 10/10/22 10/10/22 08:23 12:48 Glucose POC Glucose 104 H 129 H OUTPATIENT ANTIDIABETIC REGIMEN: * Lantus 80 units BID * Humalog scale * HbA1C = 8.9% (07/25/22) ASSESSMENT: 10/10/22 * BSGs elevated yesterday, ranging 102-240 mg/dL * Prednisone discontinued today * Will loosen Novolog parameters and decrease Lantus today 10/07/22 * Patients BSGs [phone] mg/dL; continues prednisone 40 mg daily * Patient received 165 units of insulin yesterday; 80 units of basal 85 units of bolus * Fasting BSG today 85 mg/dL- will set scale for PM for 0-10% reduction * Continued tightened CR- 115 mg/dL at lunch today 10/06/22 * Patient's BSGs yesterday were [phone] mg/dL. Steroids were discontinued after the first dose yesterday. * Patient now on prednisone 40 mg daily * Patient received 225 units of insulin yesterday (140 units of basal and 85 units of bolus). Patient's regimen remains basal heavy but improved in regards to the split. * Fasting BSG today is 89 mg/dL. * Will reduce basal rate to 80 units today (40 units BID or a 40% reduction). This was done because fasting BSG has trended down significantly and Solu- Medrol was discontinued. Hold NPH for today for prednisone hyperglycemia since patient's regimen was extremely basal heavy for the past several days. consider this tomorrow. * Tighten CR as patient did trend upwards after dinner. BACKGROUND * Ms Connlely is a 67 y/o F with a PMH of T2DM who presents with chest pain. She is very familiar to the glycemic service as during her past admission. During that admission, patient was very stable on Lantus 80 units BID plus Novolog CF 5 CR 1. * This admission, patient was started on Lantus 80 units BID plus Novolog CF 30 CR 9. Patient has been stable, if not with lower BSGs on this. (BSGs of [phone] mg/dL on 10/03/22) * Yesterday, Solu-Medrol 40 mg IV q8 was started and BSGs trended upwards to 308 by the end of the day. She received 196 units of insulin yesterday (160 of basal and 36 units of bolus). This is in comparison to last admission when patient received consistently about 350 units of insulin. * Fasting today is 155 mg/dL. Patient is very basal heavy with the above regimen. Will give Lantus 80 units this AM then reduce basal by 20% to 60 units BID. * Due to steroids, will tighten Novolog significantly. Will not be as tight as last admission since the patient's glycemic needs do not appear to be as large. This may need to be loosened later if proves too aggressive at lunch. PLAN FOR INPATIENT GLYCEMIC CONTROL: * Basal insulin * Lantus 30 units SC BID * Bolus insulin * NovoLog per scale ACHS or Q6hrs while NPO * Goal Range: Low 110 mg/dL - High 140 mg/dL * Correction Factor: 10 mg/dL/unit * Nutritional / Prandial insulin per carb ratio of 1 unit per 3 grams CHO consumed
--- NOTE | 2022-10-10 14:21 | Cardiology Consultation ---
Date of Consultation October 10, 2022 Assessment & Plan (1) Acute on chronic heart failure with preserved ejection fraction (HFpEF): - I reviewed the images of her echocardiogram obtained this admission 10/01/2022. As expected, the images are technically limited due to patient characteristics/poor acoustic windows. The right ventricle is mildly dilated with mild right ventricular hypokinesis, which has been a chronic finding for her over the years. Mild concentric left ventricular hypertrophy is noted, with grade 1 diastolic dysfunction, and borderline to mild diffuse left ventricular hypokinesis, ejection fraction estimated to be 45-50%. Per review of comparison studies, perhaps a very subtle decline in the left ventricular systolic function, but overall, likely just about the same with once again poor acoustic windows. She is felt to be euvolemic at time of previous cardiology outpatient visit December, and weight 154 kg, 341 pounds at that time. Her weight is assessed by the built in bed scale today is 145.8 kg, but there has been significant variability, with measurement of 151.2 kg yesterday. As noted, patient unable to bear weight for a standing scale weight. Transition back to oral diuretics tomorrow, will change torsemide to 20 mg daily at 7 AM, 10 mg daily at 1400. Continue spironolactone 25 mg daily. Continue potassium chloride 20 mill colons twice daily for now. Repeat chemistry panel 10/11/2022. (2) Fracture of distal end of right femur: - Patient seen by orthopedics this admission, counseled not to weight-bear on right lower leg. -Although patient does have a inferior vena cava in place dating back to 2007, I am concerned with regards to her risk of DVT in the setting of ongoing limited mobility. After she leaves the hospital, may need to consider long-term DVT prophylaxis such as Xarelto 10 mg daily, as long as Hemoccult proves to be negative and hemoglobin remained stable. -For now continue subcutaneous heparin. History of Present Illness Attending Physician: Gregory Jensen MD History of Present Illness Whit Connelly is a 67-year-old female seen in cardiology consultation per the request of Hortencia Ordonez for the evaluation of acute on chronic heart failure with preserved ejection fraction. I followed the patient on an outpatient basis. Her most recent outpatient cardiology follow-up visit had been with Nataliya Kennedy PA-C of our practice in December,. At that time, it was felt that her volume status was euvolemic and she was down 30 to 40 pounds compared to prior visits with proceeding creatinine levels in the range of 1.8 to 2 mg/dL. She weighed 341 pounds at the time of that clinic visit. She had been counseled to continue torsemide 20 mg 1 tablet in the morning and 1/2 tablet or 10 mg in the afternoon 5 days/week, and on Saturdays and Sundays she was taking torsemide 20 mg 1 time per day. In the meantime, she had been hospitalized for cellulitis at [facility] in Mar, 2022 and had a mechanical fall onto the chair, with resultant fracture to her distal femur. She was transferred to [facility] for consideration of high risk orthopedic intervention, but ultimately was treated nonoperatively and she was actually in the hospital there for 3 months until June, and then was transferred to a rehab facility outside of [place]. She was then readmi tted to [facility] from 07/25/2022 until 09/09/2022. She was discharged to [facility] and readmitted on 10/01/2022 with chest discomfort that was atypical for angina along with concerns of recurrent cellulitis. Significant weight gain noted on presentation. The patient has been on a tapering course of prednisone, and is also been using inhaled bronchodilators. She received a dose of furosemide yesterday and another dose of furosemide 40 mg today with subjective improvement in her breathing. PAST MEDICAL / CARDIAC HISTORY: Chronic right-sided heart failure with obesity hypoventilation syndrome, COPD She had been admitted to [facility] in 2007 having presented with shortness of breath. Shortly after presentation she had agonal respirations and went into cardiopulmonary arrest. She was successfully resuscitated receiving CPR and ACLS with tracheostomy and inferior vena cava filter placed at that time. At [facility] received aggressive IV diuretics including furosemide 80 mg IV twice daily, and a furosemide infusion at 1 point. Allergies Allergy/AdvReac Type Severity Reaction Status Date / Time Penicillins Allergy Intermediate Hives Verified 10/01/22 19:48 amitriptyline Allergy Unknown ON EMBASSY Verified 10/01/22 19:48 OF [facility] doxycycline Allergy Unknown ON [facility]MB[facility]Y Verified 10/01/22 19:48 OF [facility] MED LIST guaifenesin Allergy Unknown ON [facility]MB[facility]Y Verified 10/01/22 19:48 OF [facility] metformin Allergy Unknown ON EMB[facility]Y Verified 10/01/22 19:48 [facility] phenylephrine Allergy Unknown ON EMB[facility]Y Verified 10/01/22 19:48 OF [facility] pseudoephedrine Allergy Unknown ON EMB[facility]Y Verified 10/01/22 19:48 OF [facility] tetracycline Allergy Unknown ON EMBASSY Verified 10/01/22 19:48 OF [facility] venlafaxine [From Effexor] Allergy Unknown ON EMBASSY Verified 10/01/22 19:48 OF [facility] gabapentin AdvReac Intermediate BECOMES Verified 10/01/22 19:48 AGGRESSIVE Home Medications Medication Instructions Recorded Confirmed Type aspirin 81 mg tablet,delayed 81 mg PO QAM 04/06/19 10/01/22 History release (Robert Low Dose Aspirin) bupropion HCl 100 mg tablet,12 hr See Rx Instructions .Route .COMPLEX 04/06/19 10/01/22 History sustained-release metoprolol tartrate 25 mg tablet 12.5 mg PO BID 04/06/19 10/01/22 History multivitamin 1 tab PO QAM 04/06/19 10/01/22 History pantoprazole 40 mg tablet,delayed 40 mg PO DAILYBB 04/06/19 10/01/22 History release spironolactone 25 mg tablet 25 mg PO QAM 04/06/19 10/01/22 History topiramate 100 mg tablet 100 mg PO BID 04/06/19 10/01/22 History Oxygen Home #1 ea 06/28/19 03/22/22 History nitroglycerin 0.4 mg sublingual 0.4 mg sublingual DIRECTED PRN 06/28/19 10/01/22 History tablet Chest Pain nebulizers #1 ea 12/24/20 10/04/22 Rx betamethasone dipropionate 0.05 % 1 applic topical BID PRN Skin 02/27/21 10/01/22 History topical cream Irritation ipratropium 0.5 mg-albuterol 3 mg 3 ml inhalation Q4H PRN COUGHING, 02/27/21 10/01/22 History (2.5 mg base)/3 mL nebulization WHEEZING, SHORTNESS OF BREATH soln folic acid 1 mg tablet 1 mg PO QAM #0 tabs 04/19/21 10/01/22 Rx blood sugar diagnostic (Contour #300 ea 09/29/21 10/04/22 Rx Next Test Strips) albuterol sulfate 90 mcg/actuation 2 puff inhalation Q4 PRN Shortness 11/25/21 10/01/22 History aerosol inhaler Of Breath atorvastatin 40 mg tablet 40 mg PO QPM #90 tabs 01/14/22 10/01/22 Rx acetaminophen 500 mg tablet 500 mg PO QPM 03/23/22 10/01/22 History (Tylenol Extra Strength) acidophilus 100 million 1 cap PO QAM 03/23/22 10/01/22 History cell-pectin, citrus 10 mg capsule torsemide 10 mg tablet 10 mg PO BID 07/24/22 10/01/22 History insulin glargine 100 unit/mL (3 80 unit (0.8 mL) subcut BID #48 mL 09/07/22 10/01/22 Rx mL) subcutaneous pen isosorbide mononitrate 30 mg 30 mg PO QAM #30 tabs 09/07/22 10/01/22 Rx tablet,extended release 24 hr oxycodone 5 mg tablet 10 mg PO Q8H PRN pain #10 tabs 09/07/22 10/01/22 Rx acetaminophen 325 mg tablet 650 mg PO Q6H PRN FEVER/PAIN 10/01/22 10/01/22 History (Tylenol) docusate sodium 100 mg capsule 100 mg PO BID 10/01/22 10/01/22 History insulin lispro 100 unit/mL 1 sliding scale dose subcut 10/01/22 10/01/22 History subcutaneous pen (Humalog KwikPen USEASDIRECTD (U-100) Insulin) ipratropium 20 mcg-albuterol 100 1 puff inhalation QID 10/01/22 10/01/22 History mcg/actuation mist for inhalation (Combivent Respimat) levothyroxine 200 mcg tablet 200 mcg PO DAILYBB 10/01/22 10/01/22 History levothyroxine 25 mcg tablet 25 mcg PO DAILYBB 10/01/22 10/01/22 History magnesium oxide 400 mg PO QAM 10/01/22 10/01/22 History potassium chloride 20 mEq 20 meq PO BID 10/01/22 10/01/22 History tablet,extended release sulfamethoxazole 800 1 tab PO BID 10/01/22 10/01/22 History mg-trimethoprim 160 mg tablet (Bactrim DS) Patient History Medical History Ambulatory dysfunction Breathlessness Chest pain CHF (congestive heart failure) Dyslipidemia Fluid overload HTN (hypertension) Insulin-requiring or dependent type II diabetes mellitus MRSA (methicillin resistant staph aureus) culture positive "sputum 11/2015" Right ventricular dysfunction Sepsis Surgical History History of appendectomy History of cholecystectomy History of hysterectomy History of tonsillectomy and adenoidectomy S/P IVC filter Family History Mother Coronary heart disease COPD (chronic obstructive pulmonary disease) Father Suicide Hung himself. Pt found him. Unknown Lung cancer Social History Smoking Status: Never smoker Tobacco Type: Cigarettes Second Hand Exposure: No; Hx Alcohol Use: No Hx Substance Use: No Preferred Language: Mongolian Communication Ability: Effective Visual Impairment: Limited Senior Rd Engineer Required: No Beliefs That Will Affect Care: None marital status: Current Living Situation: Long-Term Current Living Situation Comment: came from [facility] doesn't want to go back current occupational status: disabled How many Children do You have: 1 Other Information That Helps Us Care for You: No Feels Safe at Home: Yes Safety Concerns: Feels Safe At This Time Assistive Devices: Bedside Commode, Hospital Bed, Oxygen - at Night, Walker, Wheelchair and Other Assistive Devices Comment: suction machine, trach supplies Review of Systems Review of Systems: All systems reviewed & are unremarkable except as noted in HPI & below Cardiovascular: Additional Comments: Pertinent short of breath, improved today 10/10/2022, pleuritic chest pain noted on presentation to the hospital 10/01/2022 resolved Musculoskeletal: Nonweightbearing status maintained for right lower extremity Physical Exam Constitutional: + morbidly obese; no acute distress Respiratory: no respiratory distress, no labored breathing and no cough Auscultation: + diminished lung sounds (Reduced breath sounds bilaterally at the bases); no crackles and no rales Cardiovascular: Rate/Rhythm: regular rate and regular rhythm Heart Sounds: no murmur Extremities: + edema (Trace lower extremity edema bilaterally) Distant heart sounds Gastrointestinal (Abdomen): normal bowel sounds, soft, nontender, no hepatosplenomegaly Neurologic: PERRL, EOMI, accommodation nl, no face palsy, no dysarthria Results & Data ([facility]) Vital Signs (Past 12 Hours) Vital Signs Temp Pulse Resp BP Pulse Ox O2 Del Method 10/10/22 11:25 64 18 93 Room Air 10/10/22 07:30 Room Air 10/10/22 08:06 36.6 C 70 20 129/72 94 Room Air 10/10/22 07:21 67 18 94 Room Air Laboratory Results Comprehensive Metabolic Panel 10/10/22 Range/Units 08:00 Sodium 138 (136-145) mmol/L Potassium 3.6 (3.5-5.1) mmol/L Chloride 103 (98-107) mmol/L Carbon Dioxide 26 (21-32) mmol/L BUN 37 H (6-23) mg/dl Creatinine 1.53 H (0.6-1.2) mg/dl Glucose 101 H (70-99(Fasting)) mg/dl Calcium 9.2 (8.5-10.1) mg/dl Diagnostic Findings EKG performed 10/01/2022 and interpreted independently: Sinus rhythm at 75 bpm with first-degree AV block, right bundle branch block, unchanged compared to 07/24/2022
[2022-10-10] MEDS: ATORVASTATIN 40 MG TAB PO SCH (20:19)
[2022-10-10] MEDS: POTASSIUM CHLORIDE CRTAB 20 MEQ TABCR PO SCH (20:20)
[2022-10-10] MEDS: NYSTATIN POWDER 15GM BTL EXT SCH (22:08)
[2022-10-11] MEDS: LEVOTHYROXINE SODIUM 25 MCG TABLET PO SCH (05:50)
[2022-10-11] MEDS: LEVOTHYROXINE SODIUM 200 MCG TABLET PO SCH (05:50)
[2022-10-11] MEDS: HEPARIN SOD 5,000 UNIT/0.5 ML VIAL SQ SCH ×3 (05:50→20:26)
[2022-10-11] MEDS: PANTOprazole 40 MG TAB PO SCH (05:50)
[2022-10-11] MEDS: TORSEMIDE 10 MG TAB PO SCH (06:31)
[2022-10-11] MEDS ORDERED: TORSEMIDE 10 MG TAB PO SCH ×2 (07:00→14:00)
[2022-10-11] MEDS: ALBUT/IPRATROP 3MG/0.5MG NEB 3 ML VIAL NEB SCH ×4 (07:25→20:09)
[2022-10-11] MEDS: SODIUM CHLOR 7% 4 ML NEB NEB SCH ×2 (07:26→20:09)
[2022-10-11 07:56] LABS: Hematocrit (blood only) 38.3 % (34.1-44.9); Mean Corpuscular Hemoglobin 28.6 pg (25.0-34.0); Mean Corpuscular Hgb Conc 31.3 g/dL (32.0-36.0); Mean Corpuscular Volume 91.2 fL (80.0-100.0); Platelet Count 258 K/uL (130-400); RDW Coefficient of Variation 14.6 % (11.5-14.5); RDW Standard Deviation 48.6 fL (36.4-46.3); White Blood Count 9.55 K/ul (4.8-10.8)
[2022-10-11 08:18] LABS: BUN Creatinine Ratio 22.3 (10-20); Calcium 8.9 mg/dl (8.5-10.1); Creatinine Clr Calc Pharmacy 49.2 ml/min; Est GFR (African American) 39.4 ml/min
--- NOTE | 2022-10-11 08:41 | Hospitalist Progress Note ---
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 BID (in past 20mg BID), spironolactone 25mg, metoprolol tartrate 12.mg BID (?changing to succinate), isosorbide, ASA, statin * Of note, was on Jardiance on admission last month -- appears was discontinued at discharge however given CHF, would be beneficial to restart this for management at discharge as well ECHO w/ WORSENED EF --> now 45-50% (prior in 2020 w/ EF 55-60%) Given lasix 20mg IV in ED on admission, nothing further until I picked her up on 10/07 and patient had increased O2 use at rest/not sleeping, congestion on exam, confirmed w/ CXR w/ pulmonary edema after being given 2 days of IV solumedrol for SOB symptoms and transitioned to prednisone (since discontinued after discussion with pulmonology 10/09) Lasix 40mg IV on 10/07 with improvement, held for 10/08 given rise in Cr to >2 at 2.05 and improved to 1.69 on repeat. Additional 20mg IV lasix on 10/09 w/ Cr improved to 1.53 Additional 40mg IV lasix x 40mg 10/10 Continue AHA diet/low salt (had been getting vaughn w/ breakfast every day earlier in the week) Cardiology consulted -- follows with Dr Marley. --> increased torsemide to 20mg QAM, continue 10mg PM --> discussed this morning, resumed Jardiance 25mg daily for CHF/DM given discontinued last admit unclear reason Per cards, holding off on further diuretic adjustment/monitor on current regimen Monitor weight/I&O -- weight did decrease on repeat 145.8kg, however noted is BEDSCALE given mobility issues ?low dose Xarelto vs eliquis for DVT prophylaxis entertained by cardiology if fecal occult negative (asked RN to obtain) -- hgb stable and has remained on Heparin SQ while inpatient (2) SOB (shortness of breath): Plan: Acute on Chronic related to COPD, OHS, RASHAAD, CHF (acute on chronic diastolic heart failure). Not on Na restricted diet at SNF, also had her SGLT-2 inhibitor stopped at discharge last admit, suspect worsened HF, now w/ reduced EF to 45- 50% (of note, she did have notes in outpatient pulm in past with increased wheezing after bactrim use ...she did just get done w/ use for a cellulitis RLE) Placed on duonebs QID -- Viviana endorses using these 4x/daily in winter months when she is more at risk w/ infections Ordered mucomyst prior however patient declined this. Had ordered mucinex however patient reporting extreme dry mouth with such and declined wanting to continue Given Solumedrol IV x 2 days Converted to prednisone 40mg 10/06, decreased to 30mg 10/09--> DISCONTINUED after 10/09 dose after discussion with pulmonology Added and continued hypertonic saline nebs for mucus plugging in patient w/ trach --> effective and continued while inpatient Continue vibration vest/chest physiotherapy Lasix as outlined above, did get additional 40mg IV lasix on 10/11, diuretic regimen increased as above Has REMAINED STABLE OFF supplemental O2 since addition of hypertonic saline/diuretics Reports breathing stable (3) Atypical chest pain: Plan: Reported on admit, reason for reported admission Trop negative x 2 CXR w/o acute process ON ADMIT, subsequent noted pulmonary congestion as above, ECHO w/ worse EF EKG unchanged from prior Tele d/c'd 10/02 No CP reported 10/08, however had some reflux symptoms on 10/09 which have resolved and stayed stable with addition of pepcid. Suspect reflux from steroid use, since discontinued and denies any increased reflux/discomfort symptoms EKG w/ CP Monitor (4) Cellulitis: Plan: Concern Cellulitis (mild) of RLE - noted erythema and pain on palpation on b/l LE with 1 open skin lesion on left leg consistent with skin picking [facility] and resumed oral Bactrim 10/02, completed course 10/06 No evidence for cellulitis on exam, monitor for any issues *Of note, prior Bactrim use in past w/ increased wheezing -- could consider pneumonitis from medication, but suspect moreso aspect of acute on chronic CHF exacerbation as outlined above, resolving w/ treatment (5) Weakness: Plan: Related to morbid obesity and chronic R femur fx PT/OT, CM for complex dc issues (6) Fracture of distal end of right femur: Plan: Sustained while inpatient earlier this year w/ fall in the hospital. Ended up transferred to [facility], [facility] for rehab, prior to returning inpatient last month due to getting home from rehab and not being strong enough to stand to get into her house. Then was sent to [facility] prior to current admission where she reports they were unable to take care of her and developed cellulitis and worsening shortness of breath/atypical chest pain Chronic, NWB to RLE Pain control, PT/OT consulted (7) Hypothyroidism (acquired): Plan: Continue Levothyroxine, recent increased from 200mcg daily to 225mcg last admission (I increased her Synthroid during last admission w/ fatigue/CHF/constipation symptoms last admission week 08/31) Needs repeat TSH testing ~6 weeks from prior -- may need done while inpatient/awaiting dc plan (8) CKD stage 4 due to type 2 diabetes mellitus: Plan: Creat 1.58 previously (baseline 1.3-1.8) Acute rise to 2.05 likely from diuretics, resolved/stable on repeat and actually improved with additional doses of lasix and remains stable at 1.53 Torsemide increased to 20mg QAM, usual 10mg in evening for now Resumed Jardiance 25mg daily as above for both CHF/DM Avoid nephrotoxic agents when able and renally dose meds when appropriate Monitor kidney function in AM (9) GERD (gastroesophageal reflux disease): Plan: Continue protonix , consider increasing to BID but added pepcid daily w/ good control and will continue current course for now (10) Insulin-requiring or dependent type II diabetes mellitus: Plan: A1c 8.9, holding home agents BSG AC/HS while inpatient, utilizing SSI Prior elevations to 300s on 10/04, likely from IV solu-medrol Pharmacy consulted for glycemic control 10/05, BSGs controlled, coverage loosened since steroids discontinued Added jardiance back to medications as above, 25mg --> continue at d/c as discontinued last admission for unclear reason (11) Anxiety: Plan: Continue home medications Anxiety appears stable currently (12) Morbid obesity with BMI of 60.0-69.9, adult: Plan: - weight loss advised given that it is the root cause of many of her medical issues (13) Tinea: Plan: appears to b/l toenails, stated prior seen by Dr Crump, inquired if anyone would be able to cut them due to her being DM/unable to have someone come in prior Podiatry consulted, Dr Crump Saw patient 10/07, trimmed nails Need outpatient [facility] f/u (14) DVT prophylaxis: Plan: Heparin SQ while inpatient -- cards recs for consideration for low dose xarelto 10mg vs eliquis 2.5mg BID at d/c for DVT prophylaxis given limited mobility/immobilized state/bed bound Continuing Heparin SQ for now Plan PT/OT. Case management consult for complex dc needs. Patient does qualify for 90 hours of assistance per week of which she would require. She also will need wheelchair access to her home via ramp, as well as widened doorways to accommodate a wheelchair and repair of hole that is reported in the floor of her home for pt to safely be in her home. She would also require chair lift to get her from first floor to second floor. This has also been documented during her previous admission. Pt is refusing to return to [facility] and during her last admission was refusing to outside of the immediate area. Continued inpatient stay -- placement vs home unclear at this time. Came from [facility], Viviana tells me she had aides screaming at her at [facility] to participate in therapy and her daughter heard them on speaker. She was also told when she was leaving to "not return as they can't take care of you Viviana". This was relayed to CM as well 10/09 CM note from 10/09 "Left message for Pt's clinical manager home care, Dannielle. Advised this is my 3rd message to her with no return call. Advised that Case Management needs to know if she received script for home repairs. We need to know if they received it and have started to work on finding service. This is imperative to know for our discharge planning. Requested that she please return call to case Management." She reports having 90 hours of caregivers arranged to begin on 10/21 (confirmed w/ CM). Continue increased diuretics/resumed jardiance as above Asked CM to possibly contact superintendent [employer] with Viviana in the room given difficulty in ability to get ahold of her. Referrals faxed to [facility], [facility] in meantime Admission and Anticipated Discharge Date Admission Date: October 01, 2022 Subjective eval this morning, doing well. breathing stable on room air. still coughing up clear/white sputum, slightly thicker in color. discussed a dding mucinex but patient prefers to continue the hypertonic saline nebs without addition of mucinex currently. Cr stable w/ lasix yesterday, increased torsemide this morning. she is inquiring about resuming her jardiance and would like to do so -- messaged Dr Marley and will resume jardiance and continue current diuretic regimen as is for now. no fever/chills, chest pain, no nausea/vomiting or abdominal pain. bacitracin to toe but no evidence of infection at this time and will monitor. Review of Systems Review of Systems: All systems reviewed & are unremarkable except as noted in HPI & below Physical Exam Physical Exam: General: WD/morbidly obese female sitting up in bed, NAD , less coughing, no audible wheezing, remains on room air 93% HEENT: head normocephalic, thick neck, +metal trach, mmm Resp: diminished in the bases, anterior rhonchi, resolved but is diminished in the bases and with faint end expiratory wheezing primarily posterior lower lung hale, on room air 96% CV: RRR, no m/r/g, no pitting edema, calves nontender, cap refill wnl MSK/Neuro: generalized weakness b/l LE, NVI, pulses palpable Psych: AOx3, cooperative and pleasant Skin: dry flaking to LE, no further cellulitis/erythema, opened scab covered with optifoam to L medial inferior knee, nonpainful toenails with fungal appearance s/p trimming 1st hallux nail on the left unroofed/removed by podiatry , no drainage/pain/erythema Results & Data Results & Data ([facility]) Vital Signs (Past 12 Hours) Vital Signs Temp Pulse Resp BP Pulse Ox O2 Del Method 10/11/22 07:58 36.8 C 70 18 136/71 94 Room Air 10/11/22 07:26 76 18 94 Room Air Laboratory Results 10/11/22 10/11/22 10/11/22 Range/Units 08:21 06:53 06:53 WBC 9.55 (4.8-10.8) K/ul RBC 4.20 (3.93-5.22) M/uL Hgb 12.0 (12.0-16.0) g/dl Hct 38.3 (34.1-44.9) % MCV 91.2 (80.0-100.0) fL MCH 28.6 (25.0-34.0) pg MCHC 31.3 L (32.0-36.0) g/dL RDW Std Deviation 48.6 H (36.4-46.3) fL RDW Coeff of Amee 14.6 H (11.5-14.5) % Plt Count 258 (130-400) K/uL MPV 10.0 (9.4-12.3) fL Sodium 138 (136-145) mmol/L Potassium 4.0 (3.5-5.1) mmol/L Chloride 105 (98-107) mmol/L Carbon Dioxide 27 (21-32) mmol/L Anion Gap 6 (3-11) BUN 35 H (6-23) mg/dl Creatinine 1.57 H (0.6-1.2) mg/dl Est Cr Clr Drug Dosing 49.2 ml/min Est GFR ( Amer) 39.4 ml/min Est GFR (Non-Af Amer) 34.0 ml/min BUN/Creatinine Ratio 22.3 H (10-20) Glucose 141 H (70-99(Fasting)) mg/dl POC Glucose 149 H (70-99) mg/dl Calcium 8.9 (8.5-10.1) mg/dl 10/10/22 10/10/22 10/10/22 Range/Units 21:00 16:55 12:48 WBC (4.8-10.8) K/ul RBC (3.93-5.22) M/uL Hgb (12.0-16.0) g/dl Hct (34.1-44.9) % MCV (80.0-100.0) fL MCH (25.0-34.0) pg MCHC (32.0-36.0) g/dL RDW Std Deviation (36.4-46.3) fL RDW Coeff of Amee (11.5-14.5) % Plt Count (130-400) K/uL MPV (9.4-12.3) fL Sodium (136-145) mmol/L Potassium (3.5-5.1) mmol/L Chloride (98-107) mmol/L Carbon Dioxide (21-32) mmol/L Anion Gap (3-11) BUN (6-23) mg/dl Creatinine (0.6-1.2) mg/dl Est Cr Clr Drug Dosing ml/min Est GFR ( Amer) ml/min Est GFR (Non-Af Amer) ml/min BUN/Creatinine Ratio (10-20) Glucose (70-99(Fasting)) mg/dl POC Glucose 176 H 128 H 129 H (70-99) mg/dl Calcium (8.5-10.1) mg/dl 10/10/22 Range/Units 08:00 WBC (4.8-10.8) K/ul RBC (3.93-5.22) M/uL Hgb (12.0-16.0) g/dl Hct (34.1-44.9) % MCV (80.0-100.0) fL MCH (25.0-34.0) pg MCHC (32.0-36.0) g/dL RDW Std Deviation (36.4-46.3) fL RDW Coeff of Amee (11.5-14.5) % Plt Count (130-400) K/uL MPV (9.4-12.3) fL Sodium 138 (136-145) mmol/L Potassium 3.6 (3.5-5.1) mmol/L Chloride 103 (98-107) mmol/L Carbon Dioxide 26 (21-32) mmol/L Anion Gap 9 (3-11) BUN 37 H (6-23) mg/dl Creatinine 1.53 H (0.6-1.2) mg/dl Est Cr Clr Drug Dosing 51.7 ml/min Est GFR ( Amer) 40.7 ml/min Est GFR (Non-Af Amer) 35.1 ml/min BUN/Creatinine Ratio 24.2 H (10-20) Glucose 101 H (70-99(Fasting)) mg/dl POC Glucose (70-99) mg/dl Calcium 9.2 (8.5-10.1) mg/dl PG Care Time/CCT Total # of Minutes Spent Total Time Spent with Patient: Total time spent is greater than 50% in coordination of care (as documented) at patient's floor/unit and/or counseling patient: Coding Level of Care Code 35808 Subseq Hosp Care Lvl 3 Diagnoses Chronic diastolic congestive heart failure I50.32 SOB (shortness of breath) R06.02 Atypical chest pain R07.89 Cellulitis L03.90 Weakness R53.1 Fracture of distal end of right femur S72.401A Hypothyroidism (acquired) E03.9 CKD stage 4 due to type 2 diabetes mellitus E11.22; N18.4 GERD (gastroesophageal reflux disease) K21.9 Insulin-requiring or dependent type II diabetes mellitus E11.9; Z79.4 Anxiety F41.9 Morbid obesity with BMI of 60.0-69.9, adult E66.01; Z68.44 Tinea B35.9 DVT prophylaxis Z29.9
[2022-10-11] MEDS ORDERED: predniSONE 10 MG TABLET PO SCH (09:00)
[2022-10-11] MEDS: SPIRONOLACTONE 25 MG TAB PO SCH (09:22)
[2022-10-11] MEDS: MULTIVITAMIN TAB PO SCH (09:22)
[2022-10-11] MEDS: TOPIRAMATE 100 MG TAB PO SCH ×2 (09:22→20:25)
[2022-10-11] MEDS: POTASSIUM CHLORIDE CRTAB 20 MEQ TABCR PO SCH ×2 (09:22→20:25)
[2022-10-11] MEDS: FOLIC ACID 1 MG TAB PO SCH (09:22)
[2022-10-11] MEDS: METOPROLOL TARTRATE 25 MG TAB PO SCH ×2 (09:23→20:25)
[2022-10-11] MEDS: buPROPion SR 100 MG TABCR PO SCH ×2 (09:23→20:25)
[2022-10-11] MEDS: ISOSORBIDE MONO EXTENDED REL 30 MG TABCR PO SCH (09:23)
[2022-10-11] MEDS: MAGNESIUM OXIDE 400 MG TAB PO SCH (09:23)
[2022-10-11] MEDS: ASPIRIN 81 MG ECTAB PO SCH (09:25)
[2022-10-11] MEDS: LANTUS PER UNIT CHARGE SQ SCH ×2 (09:33→20:51)
[2022-10-11] MEDS: INSULIN ASPART PER UNIT SC SCH ×4 (09:33→20:52)
[2022-10-11] MEDS: DOCUSATE SODIUM 100 MG CAP PO SCH ×2 (09:35→20:25)
[2022-10-11] MEDS: NYSTATIN POWDER 15GM BTL EXT SCH ×2 (10:06→20:26)
[2022-10-11] MEDS: EMPAGLIFLOZIN 10 MG TAB PO SCH (11:09)
[2022-10-11] MEDS: BACITRACIN/POLYMYXIN B SULFATE 90 APPLN/28.4 GM TUBE EXT SCH ×2 (11:09→20:26)
[2022-10-11] MEDS: oxyCODONE HCL IR 5 MG TAB (IMMEDIATE RELEASE) PO PRN (14:17)
--- NOTE | 2022-10-11 15:01 | Cardiology Progress Note ---
Date of Service October 11, 2022 Assessment & Plan (1) Acute on chronic heart failure with preserved ejection fraction (HFpEF): Plan: Continue torsemide 20 mg daily in the morning at 7 AM, 10 mg in the afternoon at 1400 Continue spironolactone 25 mg daily Continue spironolactone 20 mEq twice daily Agree with resuming Jardiance 25 mg daily. (2) Fracture of distal end of right femur: Plan: For now continue subcutaneous heparin. -Consider Xarelto 10 mg daily at discharge for DVT prophylaxis given VTE risk long-term. Admission and Anticipated Discharge Date Admission Date: October 01, 2022 Subjective Patient seen in cardiology follow-up. She was receiving physical therapy. Relatively stable degree of shortness of breath without change noted. She is not on telemetry. Physical Exam Constitutional: + morbidly obese; no acute distress Respiratory: no respiratory distress, no labored breathing and no cough Auscultation: + diminished lung sounds (Reduced breath sounds bilaterally at the bases); no crackles and no rales Cardiovascular: Rate/Rhythm: regular rate and regular rhythm Heart Sounds: no murmur Extremities: + edema (Trace lower extremity edema bilaterally) Gastrointestinal (Abdomen): normal bowel sounds, soft, nontender, no hepatosplenomegaly Neurologic: PERRL, EOMI, accommodation nl, no face palsy, no dysarthria Results & Data ([facility]) Vital Signs (Past 12 Hours) Vital Signs Temp Pulse Resp BP Pulse Ox O2 Del Method 10/11/22 14:51 36.8 C 75 18 103/65 94 Room Air 10/11/22 07:40 Room Air 10/11/22 11:26 80 18 96 Room Air 10/11/22 07:58 36.8 C 70 18 136/71 94 Room Air 10/11/22 07:26 76 18 94 Room Air
[2022-10-11] MEDS: ATORVASTATIN 40 MG TAB PO SCH (20:26)
[2022-10-12] MEDS: HEPARIN SOD 5,000 UNIT/0.5 ML VIAL SQ SCH ×3 (06:08→21:12)
[2022-10-12] MEDS: LEVOTHYROXINE SODIUM 25 MCG TABLET PO SCH (06:08)
[2022-10-12] MEDS: LEVOTHYROXINE SODIUM 200 MCG TABLET PO SCH (06:09)
[2022-10-12] MEDS: PANTOprazole 40 MG TAB PO SCH (06:09)
[2022-10-12] MEDS: TORSEMIDE 10 MG TAB PO SCH (06:10)
[2022-10-12] MEDS: SODIUM CHLOR 7% 4 ML NEB NEB SCH ×2 (07:45→20:04)
[2022-10-12] MEDS: ALBUT/IPRATROP 3MG/0.5MG NEB 3 ML VIAL NEB SCH ×4 (07:45→20:05)
[2022-10-12] MEDS: METOPROLOL TARTRATE 25 MG TAB PO SCH ×2 (08:24→19:32)
[2022-10-12] MEDS: POTASSIUM CHLORIDE CRTAB 20 MEQ TABCR PO SCH (08:24)
[2022-10-12] MEDS: TOPIRAMATE 100 MG TAB PO SCH ×2 (08:24→19:27)
[2022-10-12] MEDS: ISOSORBIDE MONO EXTENDED REL 30 MG TABCR PO SCH (08:24)
[2022-10-12] MEDS: DOCUSATE SODIUM 100 MG CAP PO SCH ×2 (08:24→19:30)
[2022-10-12] MEDS: FOLIC ACID 1 MG TAB PO SCH (08:24)
[2022-10-12] MEDS: EMPAGLIFLOZIN 10 MG TAB PO SCH (08:25)
[2022-10-12] MEDS: ASPIRIN 81 MG ECTAB PO SCH (08:25)
[2022-10-12] MEDS: MULTIVITAMIN TAB PO SCH (08:25)
[2022-10-12] MEDS: SPIRONOLACTONE 25 MG TAB PO SCH (08:25)
[2022-10-12] MEDS: buPROPion SR 100 MG TABCR PO SCH ×2 (08:25→19:29)
[2022-10-12] MEDS: MAGNESIUM OXIDE 400 MG TAB PO SCH (08:25)
[2022-10-12] MEDS: BACITRACIN/POLYMYXIN B SULFATE 90 APPLN/28.4 GM TUBE EXT SCH ×2 (08:26→19:28)
[2022-10-12] MEDS: NYSTATIN POWDER 15GM BTL EXT SCH ×2 (08:26→19:29)
[2022-10-12 08:27] LABS: BUN Creatinine Ratio 19.4 (10-20); Calcium 9.2 mg/dl (8.5-10.1); Creatinine Clr Calc Pharmacy 44.1 ml/min; Est GFR (African American) 34.6 ml/min; Est GFR (Non-African American) 29.8 ml/min
[2022-10-12] MEDS: LANTUS PER UNIT CHARGE SQ SCH ×2 (09:07→21:12)
[2022-10-12] MEDS: INSULIN ASPART PER UNIT SC SCH ×4 (09:08→21:12)
--- NOTE | 2022-10-12 09:38 | Pharmacy Report ---
Pharmacy Glycemic Short Note 2 - Date of Service October 12, 2022 - Glycemic Short BSG Results (Last 24 hours): 10/11/22 10/11/22 10/11/22 12:13 17:12 20:35 Glucose POC Glucose 147 H 141 H 134 H 10/12/22 10/12/22 07:42 08:09 Glucose 160 H POC Glucose 156 H OUTPATIENT ANTIDIABETIC REGIMEN: * Lantus 80 units BID * Humalog scale * HbA1C = 8.9% (07/25/22) ASSESSMENT: 10/12: * Whit received 131 units of insulin yesterday, 60 units basal + 71 units bolus. BSGs were acceptable: [phone] mg/dL. * Fasting BSG continues to increase for the second and was 156 mg/dL this AM. Will increase basal by ~15% this morning. * Patient was started on Jardiance for combination of heart failure and type 2 diabetes yesterday. Dose was 25 mg which patient received x 2 now. Recommended reduction to 10 mg daily as these tablets cannot be cut in half and we only have 10 mg tabs on formulary. Provider agreed to reduce dose to 10 mg and discharge with a prescription for 25 mg. Will reduce carb ratio slightly this AM given Jardiance addition. 10/10: * BSGs elevated yesterday, ranging 102-240 mg/dL * Prednisone discontinued today * Will loosen Novolog parameters and decrease Lantus today BACKGROUND: * Ms Connelly is a 67 y/o F with a PMH of T2DM who presents with chest pain. She is very familiar to the glycemic service as during her past admission. During that admission, patient was very stable on Lantus 80 units BID plus Novolog CF 5 CR 1. * This admission, patient was started on Lantus 80 units BID plus Novolog CF 30 CR 9. Patient has been stable, if not with lower BSGs on this. (BSGs of 60-046-140-86 mg/dL on 10/03/22) * Yesterday, Solu-Medrol 40 mg IV q8 was started and BSGs trended upwards to 308 by the end of the day. She received 196 units of insulin yesterday (160 of basal and 36 units of bolus). This is in comparison to last admission when patient received consistently about 350 units of insulin. * Fasting today is 155 mg/dL. Patient is very basal heavy with the above regimen. Will give Lantus 80 units this AM then reduce basal by 20% to 60 units BID. * Due to steroids, will tighten Novolog significantly. Will not be as tight as last admission since the patient's glycemic needs do not appear to be as large. This may need to be loosened later if proves too aggressive at lunch. PLAN FOR INPATIENT GLYCEMIC CONTROL: * Jardiance 10 mg PO qAM starting tomorrow (received 25 mg on 10/11 and 10/12) * Basal insulin * Lantus 35 units SC BID * Bolus insulin * NovoLog per scale ACHS or Q6hrs while NPO * Goal Range: Low 110 mg/dL - High 140 mg/dL * Correction Factor: 10 mg/dL/unit * Nutritional / Prandial insulin per carb ratio of 1 unit per 3.5 grams CHO consumed
[2022-10-12] MEDS: oxyCODONE HCL IR 5 MG TAB (IMMEDIATE RELEASE) PO PRN (13:09)
--- NOTE | 2022-10-12 14:06 | Cardiology Progress Note ---
Date of Service October 12, 2022 Assessment & Plan (1) Acute on chronic heart failure with preserved ejection fraction (HFpEF): Plan: Testing today for millimole per liter and Creatinine has trended up from 1.57-1.75 today 10/12/2022. Continue torsemide 20 mg p.o. daily Hold torsemide 10 mg daily at 2 PM Hold spironolactone 25 mg daily Hold potassium chloride 20 mEq twice daily Agree with reducing Jardiance dose from 25 to 10 mg daily Repeat chemistry panel tomorrow May need to permit some degree of azotemia to keep her volume status stable. (2) Fracture of distal end of right femur: Plan: For now continue subcutaneous heparin. -Consider Xarelto 10 mg daily at discharge for DVT prophylaxis given VTE risk long-term. Admission and Anticipated Discharge Date Admission Date: October 01, 2022 Subjective Patient seen in follow-up. She is in good spirits. She is on telemetry. Denies worsening wheezing. Physical Exam Constitutional: + morbidly obese; no acute distress Respiratory: no respiratory distress, no labored breathing and no cough Auscultation: + diminished lung sounds (Reduced breath sounds bilaterally at the bases); no crackles and no rales Cardiovascular: Rate/Rhythm: regular rate and regular rhythm Heart Sounds: no murmur Extremities: + edema (Trace lower extremity edema bilaterally) Gastrointestinal (Abdomen): normal bowel sounds, soft, nontender, no hepatosplenomegaly Neurologic: PERRL, EOMI, accommodation nl, no face palsy, no dysarthria Results & Data ([facility]) Vital Signs (Past 12 Hours) Vital Signs Temp Pulse Pulse Resp BP Pulse Ox O2 Del Method 10/12/22 11:03 71 18 96 Room Air 10/12/22 07:45 78 18 94 Room Air 10/12/22 07:45 Room Air 10/12/22 07:44 36.5 C 70 20 121/66 96 Room Air Laboratory Results Comprehensive Metabolic Panel 10/12/22 Range/Units 07:42 Sodium 135 L (136-145) mmol/L Potassium 4.0 (3.5-5.1) mmol/L Chloride 103 (98-107) mmol/L Carbon Dioxide 25 (21-32) mmol/L BUN 34 H (6-23) mg/dl Creatinine 1.75 H (0.6-1.2) mg/dl Glucose 160 H (70-99(Fasting)) mg/dl Calcium 9.2 (8.5-10.1) mg/dl Intake and Output 10/11/22 10/12/22 10/12/22 22:59 06:59 14:59 Intake Total 200 / 1250 300 / 1250 Output Total 700 / 1400 Balance -500 / -150 300 / -150 Intake: Oral 200 / 1250 300 / 1250 Output: Urine 700 / 1400 Other: # Unmeasured Voids 1 Weight 145.6 kg Weight Measurement Method Built in [facility]
[2022-10-12] MEDS: ACETAMINOPHEN 325 MG TAB PO PRN (18:08)
--- NOTE | 2022-10-12 19:26 | Hospitalist Progress Note ---
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 (in past 20mg BID), spironolactone 25mg, metoprolol tartrate 12.mg BID (?changing to succinate), isosorbide, ASA, statin * Restarted on Jardiance 10 mg daily ECHO w/ WORSENED EF --> now 45-50% (prior in 2020 w/ EF 55-60%) Given lasix 20mg IV in ED on admission, nothing further until I picked her up on 10/07 and patient had increased O2 use at rest/not sleeping, congestion on exam, confirmed w/ CXR w/ pulmonary edema after being given 2 days of IV solumedrol for SOB symptoms and transitioned to prednisone (since discontinued after discussion with pulmonology 10/09) Lasix 40mg IV on 10/07 with improvement, held for 10/08 given rise in Cr to >2 at 2.05 and improved to 1.69 on repeat. Additional 20mg IV lasix on 10/09 w/ Cr improved to 1.53 Additional 40mg IV lasix x 40mg 10/10 Continue AHA diet/low salt (had been getting vaughn w/ breakfast every day earlier in the week) Cardiology consulted -- follows with Dr Marley. Appreciate ongoing cardiology management of this. --> increased torsemide to 20mg QAM, continue 10mg PM (afternoon dose now on hold) --> Resume Jardiance at 10 mg daily as this is the dose we have in the pharmacy. (2) SOB (shortness of breath): Plan: Acute on Chronic related to COPD, OHS, RASHAAD, CHF (acute on chronic diastolic heart failure). Not on Na restricted diet at SNF, also had her SGLT-2 inhibitor stopped at discharge last admit, suspect worsened HF, now w/ reduced EF to 45- 50% (of note, she did have notes in outpatient pulm in past with increased wheezing after bactrim use ...she did just get done w/ use for a cellulitis RLE) Placed on duonebs QID -- Viviana endorses using these 4x/daily in winter months when she is more at risk w/ infections Ordered mucomyst prior however patient declined this. Had ordered mucinex however patient reporting extreme dry mouth with such and declined wanting to continue Given Solumedrol IV x 2 days Converted to prednisone 40mg 10/06, decreased to 30mg 10/09--> DISCONTINUED after 10/09 dose after discussion with pulmonology Added and continued hypertonic saline nebs for mucus plugging in patient w/ trach --> effective and continued while inpatient Continue vibration vest/chest physiotherapy Lasix as outlined above, did get additional 40mg IV lasix on 10/11, diuretic regimen increased as above Has REMAINED STABLE OFF supplemental O2 since addition of hypertonic saline/diuretics Reports breathing stable (3) Atypical chest pain: Plan: Reported on admit, reason for reported admission Trop negative x 2 CXR w/o acute process ON ADMIT, subsequent noted pulmonary congestion as above, ECHO w/ worse EF EKG unchanged from prior Tele d/c'd 10/02 No CP reported 10/08, however had some reflux symptoms on 10/09 which have resolved and stayed stable with addition of pepcid. Suspect reflux from steroid use, since discontinued and denies any increased reflux/discomfort symptoms EKG w/ CP Monitor (4) Cellulitis: Plan: Concern Cellulitis (mild) of RLE - noted erythema and pain on palpation on b/l LE with 1 open skin lesion on left leg consistent with skin picking [facility] and resumed oral Bactrim 10/02, completed course 10/06 No evidence for cellulitis on exam, monitor for any issues *Of note, prior Bactrim use in past w/ increased wheezing -- could consider pneumonitis from medication, but suspect more so aspect of acute on chronic CHF exacerbation as outlined above, resolving w/ treatment (5) Weakness: Plan: Related to morbid obesity and chronic R femur fx PT/OT, CM for complex dc issues (6) Fracture of distal end of right femur: Plan: Sustained while inpatient earlier this year w/ fall in the hospital. Ended up transferred to tertiary [facility], then [place] for rehab, prior to returning inpatient last month due to getting home from rehab and not being stro ng enough to stand to get into her house. Then was sent to [facility] prior to current admission where she reports they were unable to take care of her and developed cellulitis and worsening shortness of breath/atypical chest pain Chronic, NWB to RLE Pain control, PT/OT consulted (7) Hypothyroidism (acquired): Plan: Continue Levothyroxine, recent increased from 200mcg daily to 225mcg last admission (I increased her Synthroid during last admission w/ fatigue/CHF/constipation symptoms last admission week 08/31) Needs repeat TSH testing ~6 weeks from prior -- may need done while inpatient/awaiting dc plan (8) CKD stage 4 due to type 2 diabetes mellitus: Plan: Creat 1.58 previously (baseline 1.3-1.8) Acute rise to 2.05 likely from diuretics, resolved/stable on repeat and actually improved with additional doses of lasix and remains stable at 1.53 Torsemide increased to 20mg QAM, usual 10mg in evening for now Resumed Jardiance 25mg daily as above for both CHF/DM Avoid nephrotoxic agents when able and renally dose meds when appropriate Monitor kidney function in AM (9) GERD (gastroesophageal reflux disease): Plan: Continue protonix , consider increasing to BID but added pepcid daily w/ good control and will continue current course for now (10) Insulin-requiring or dependent type II diabetes mellitus: Plan: A1c 8.9, holding home agents BSG AC/HS while inpatient, utilizing SSI Prior elevations to 300s on 10/04, likely from IV solu-medrol Pharmacy consulted for glycemic control 10/05, BSGs controlled, coverage loosened since steroids discontinued Added jardiance back to medications as above, 10mg --> continue at d/c as discontinued last admission for unclear reason (11) Anxiety: Plan: Continue home medications Anxiety appears stable currently (12) Morbid obesity with BMI of 60.0-69.9, adult: Plan: - weight loss advised given that it is the root cause of many of her medical issues (13) Tinea: Plan: appears to b/l toenails, stated prior seen by Dr Crump, inquired if anyone would be able to cut them due to her being DM/unable to have someone come in prior Podiatry consulted, Dr Crump Saw patient 10/07, trimmed nails Need outpatient [facility] f/u (14) DVT prophylaxis: Plan: Heparin SQ while inpatient -- cards recs for consideration for low dose xarelto 10mg vs eliquis 2.5mg BID at d/c for DVT prophylaxis given limited mobility/immobilized state/bed bound Continuing Heparin SQ for now Plan PT/OT. Case management consult for complex dc needs. Patient does qualify for 90 hours of assistance per week of which she would require. She also will need wheelchair access to her home via ramp, as well as widened doorways to accommodate a wheelchair and repair of hole that is reported in the floor of her home for pt to safely be in her home. She would also require chair lift to get her from first floor to second floor. This has also been documented during her previous admission. Pt is refusing to return to [facility] and during her last a dmission was refusing to outside of the immediate area. Continued inpatient stay -- placement vs home unclear at this time. Came from [facility], Viviana tells me she had aides screaming at her at [facility] to participate in therapy and her daughter heard them on speaker. She was also told when she was leaving to "not return as they can't take care of you Viviana". This was relayed to CM as well Referrals faxed to [facility] in meantime She remains medically stable for discharge at this time. Admission and Anticipated Discharge Date Admission Date: October 01, 2022 Subjective She feels much better after increased doses of torsemide but does not feel back to her baseline at this time. No chest pain. Medically stable awaiting placement at this time. Review of Systems Review of Systems: All systems reviewed & are unremarkable except as noted in Subjective Physical Exam Constitutional: + morbidly obese; no acute distress Respiratory: no respiratory distress, no labored breathing and no cough Auscultation: + diminished lung sounds (Bibasal); no crackles and no rales Cardiovascular: Rate/Rhythm: regular rate and regular rhythm Heart Sounds: no murmur Extremities: + edema (Trace lower extremity edema bilaterally) Gastrointestinal (Abdomen): normal bowel sounds, soft, nontender, no hepatosplenomegaly Psychiatric: A+Ox3, euthymic affect Results & Data Results & Data ([facility]) Vital Signs (Past 12 Hours) Vital Signs Temp Pulse Pulse Resp BP Pulse Ox O2 Del Method 10/12/22 16:00 36.7 C 89 18 114/71 94 Room Air 10/12/22 15:45 36.6 C 90 18 109/54 L 91 Room Air 10/12/22 14:37 86 20 96 Room Air 10/12/22 11:03 71 18 96 Room Air 10/12/22 07:45 78 18 94 Room Air 10/12/22 07:45 Room Air 10/12/22 07:44 36.5 C 70 20 121/66 96 Room Air PG Care Time/CCT Total # of Minutes Spent Total Time Spent with Patient: Total time spent is greater than 50% in coordination of care (as documented) at patient's floor/unit and/or counseling patient: Coding Level of Care Code 55796 Subseq Hosp Care Lvl 1 Diagnoses Chronic diastolic congestive heart failure I50.32 SOB (shortness of breath) R06.02 Atypical chest pain R07.89 Cellulitis L03.90 Weakness R53.1 Fracture of distal end of right femur S72.401A Hypothyroidism (acquired) E03.9 CKD stage 4 due to type 2 diabetes mellitus E11.22; N18.4 GERD (gastroesophageal reflux disease) K21.9 Insulin-requiring or dependent type II diabetes mellitus E11.9; Z79.4 Anxiety F41.9 Morbid obesity with BMI of 60.0-69.9, adult E66.01; Z68.44 Tinea B35.9 DVT prophylaxis Z29.9
[2022-10-12] MEDS: ATORVASTATIN 40 MG TAB PO SCH (19:28)
[2022-10-13] MEDS: oxyCODONE HCL IR 5 MG TAB (IMMEDIATE RELEASE) PO PRN (01:00)
[2022-10-13] MEDS: HEPARIN SOD 5,000 UNIT/0.5 ML VIAL SQ SCH ×3 (06:04→21:11)
[2022-10-13] MEDS: TORSEMIDE 10 MG TAB PO SCH (06:04)
[2022-10-13] MEDS: PANTOprazole 40 MG TAB PO SCH (06:04)
[2022-10-13] MEDS: LEVOTHYROXINE SODIUM 25 MCG TABLET PO SCH (06:04)
[2022-10-13] MEDS: LEVOTHYROXINE SODIUM 200 MCG TABLET PO SCH (06:04)
[2022-10-13 07:30] LABS: BUN Creatinine Ratio 19.7 (10-20); Calcium 9.1 mg/dl (8.5-10.1); Creatinine Clr Calc Pharmacy 50.7 ml/min; Est GFR (Non-African American) 35.4 ml/min; Potassium 3.9 mmol/L (3.5-5.1)
[2022-10-13] MEDS: SODIUM CHLOR 7% 4 ML NEB NEB SCH ×2 (07:38→19:52)
[2022-10-13] MEDS: ALBUT/IPRATROP 3MG/0.5MG NEB 3 ML VIAL NEB SCH ×4 (07:38→19:52)
[2022-10-13] MEDS: METOPROLOL TARTRATE 25 MG TAB PO SCH ×2 (08:32→19:11)
[2022-10-13] MEDS: buPROPion SR 100 MG TABCR PO SCH ×2 (08:33→19:13)
[2022-10-13] MEDS: TOPIRAMATE 100 MG TAB PO SCH ×2 (08:33→19:13)
[2022-10-13] MEDS: ISOSORBIDE MONO EXTENDED REL 30 MG TABCR PO SCH (08:34)
[2022-10-13] MEDS: EMPAGLIFLOZIN 10 MG TAB PO SCH (08:34)
[2022-10-13] MEDS: ASPIRIN 81 MG ECTAB PO SCH (08:34)
[2022-10-13] MEDS: MAGNESIUM OXIDE 400 MG TAB PO SCH (08:35)
[2022-10-13] MEDS: MULTIVITAMIN TAB PO SCH (08:35)
[2022-10-13] MEDS: BACITRACIN/POLYMYXIN B SULFATE 90 APPLN/28.4 GM TUBE EXT SCH ×2 (08:36→19:14)
[2022-10-13] MEDS: NYSTATIN POWDER 15GM BTL EXT SCH ×2 (08:37→19:14)
[2022-10-13] MEDS: FOLIC ACID 1 MG TAB PO SCH (08:55)
[2022-10-13] MEDS: DOCUSATE SODIUM 100 MG CAP PO SCH ×2 (08:55→19:18)
[2022-10-13] MEDS: INSULIN ASPART PER UNIT SC SCH ×4 (08:58→21:11)
[2022-10-13] MEDS: LANTUS PER UNIT CHARGE SQ SCH ×2 (09:00→21:10)
[2022-10-13] MEDS ORDERED: predniSONE 10 MG TABLET PO SCH (09:00)
--- NOTE | 2022-10-13 14:28 | Pharmacy Report ---
Pharmacy Glycemic Short Note 2 - Date of Service October 13, 2022 - Glycemic Short BSG Results (Last 24 hours): 10/12/22 10/12/22 10/13/22 17:04 20:31 06:49 Glucose 143 H POC Glucose 152 H 191 H 10/13/22 10/13/22 08:16 11:54 Glucose POC Glucose 167 H 206 H OUTPATIENT ANTIDIABETIC REGIMEN: * Lantus 80 units BID * Humalog scale * HbA1C = 8.9% (07/25/22) ASSESSMENT: 10/13/22 * Patient's BSGs yesterday were [phone] mg/dL. Patient received 137 units of insulin (70 units of basal and 67 units of bolus). * Patient's BSGs today are 167-206 mg/dL. * Fasting above goal range- increase by 10% to 40 units BID * Tighten CR since BSGs trending upwards. 10/12: * Whit received 131 units of insulin yesterday, 60 units basal + 71 units bolus. BSGs were acceptable: [phone] mg/dL. * Fasting BSG continues to increase for the second straight day and was 156 mg/dL this AM. Will increase basal by ~15% this morning. * Patient was started on Jardiance for combination of heart failure and type 2 diabetes yesterday. Dose was 25 mg which patient received x 2 now. Recommended reduction to 10 mg daily as these tablets cannot be cut in half and we only have 10 mg tabs on formulary. Provider agreed to reduce dose to 10 mg and discharge with a prescription for 25 mg. Will reduce carb ratio slightly this AM given Jardiance addition. 10/10: * BSGs elevated yesterday, ranging 102-240 mg/dL * Prednisone discontinued today * Will loosen Novolog parameters and decrease Lantus today BACKGROUND: * Ms Connelly is a 67 y/o F with a PMH of T2DM who presents with chest pain. She is very familiar to the glycemic service as during her past admission. During that admission, patient was very stable on Lantus 80 units BID plus Novolog CF 5 CR 1. * This admission, patient was started on Lantus 80 units BID plus Novolog CF 30 CR 9. Patient has been stable, if not with lower BSGs on this. (BSGs of [phone] mg/dL on 10/03/22) * Yesterday, Solu-Medrol 40 mg IV q8 was started and BSGs trended upwards to 308 by the end of the day. She received 196 units of insulin yesterday (160 of basal and 36 units of bolus). This is in comparison to last admission when patient received consistently about 350 units of insulin. * Fasting today is 155 mg/dL. Patient is very basal heavy with the above regimen. Will give Lantus 80 units this AM then reduce basal by 20% to 60 unit s BID. * Due to steroids, will tighten Novolog significantly. Will not be as tight as last admission since the patient's glycemic needs do not appear to be as large. This may need to be loosened later if proves too aggressive at lunch. PLAN FOR INPATIENT GLYCEMIC CONTROL: * Jardiance 10 mg PO qAM * Basal insulin * Lantus 40 units SC BID * Bolus insulin * NovoLog per scale ACHS or Q6hrs while NPO * Goal Range: Low 110 mg/dL - High 140 mg/dL * Correction Factor: 10 mg/dL/unit * Nutritional / Prandial insulin per carb ratio of 1 unit per 3 grams CHO consumed
--- NOTE | 2022-10-13 14:39 | Cardiology Progress Note ---
Date of Service October 13, 2022 Assessment & Plan (1) Acute on chronic heart failure with preserved ejection fraction (HFpEF): Plan: Testing today for millimole per liter and Creatinine has trended up from 1.57-->1.75--> 1.52 Continue torsemide 20 mg p.o. daily Hold torsemide 10 mg daily at 2 PM Resume spironolactone 25 mg daily Hold potassium chloride 20 mEq twice daily Agree with reducing Jardiance dose from 25 to 10 mg daily May need to permit some degree of azotemia to keep her volume status stable. (2) Fracture of distal end of right femur: Plan: For now continue subcutaneous heparin. -Consider Xarelto 10 mg daily at discharge for DVT prophylaxis given VTE risk long-term, however Hemoccult positive stool in the setting of sitting hemoglobin noted. Admission and Anticipated Discharge Date Admission Date: October 01, 2022 Subjective Patient seen in follow-up. Occasional coarse breath sounds noted. As noted throughout her hospital stay, it is often times difficult to tell what is due to her respiratory secretions versus fluid retention. Physical Exam Constitutional: + morbidly obese; no acute distress Respiratory: no respiratory distress, no labored breathing and no cough Auscultation: + diminished lung sounds (Reduced breath sounds bilaterally at the bases); no crackles and no rales Cardiovascular: Rate/Rhythm: regular rate and regular rhythm Heart Sounds: no murmur Extremities: + edema (Trace lower extremity edema bilaterally) Gastrointestinal (Abdomen): normal bowel sounds, soft, nontender, no hepatosplenomegaly Neurologic: PERRL, EOMI, accommodation nl, no face palsy, no dysarthria Results & Data ([facility]) Vital Signs (Past 12 Hours) Vital Signs Temp Pulse Resp BP Pulse Ox O2 Del Method O2 Flow Rate 10/13/22 10:43 72 20 93 Room Air 10/13/22 08:00 Room Air, Trach Collar 10/13/22 07:39 67 18 95 Room Air 10/13/22 06:57 36.6 C 64 18 119/77 98 Trach Collar 6 FiO2 10/13/22 10:43 10/13/22 08:00 10/13/22 07:39 10/13/22 06:57 28 Laboratory Results Comprehensive Metabolic Panel 10/13/22 Range/Units 06:49 Sodium 139 (136-145) mmol/L Potassium 3.9 (3.5-5.1) mmol/L Chloride 105 (98-107) mmol/L Carbon Dioxide 27 (21-32) mmol/L BUN 30 H (6-23) mg/dl Creatinine 1.52 H (0.6-1.2) mg/dl Glucose 143 H (70-99(Fasting)) mg/dl Calcium 9.1 (8.5-10.1) mg/dl Intake and Output 10/12/22 10/13/22 10/13/22 22:59 06:59 14:59 Intake Total 300 / 300 Balance 300 / 299 Intake: Oral 300 / 300 Other: # Unmeasured Voids 1 1
[2022-10-13] MEDS: ATORVASTATIN 40 MG TAB PO SCH (19:13)
--- NOTE | 2022-10-13 21:11 | Hospitalist Progress Note ---
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 Additional 20mg IV lasix on 10/09 w/ Cr improved to 1.53 Additional 40mg IV lasix x 40mg 10/10 Continue AHA diet/low salt (had been getting vaughn w/ breakfast every day earlier in the week) Cardiology consulted -- follows with Dr Marley. --> increased torsemide to 20mg QAM, holding afternoon dose. Restarted on spironolactone --> discussed this morning, resumed Jardiance 25mg daily for CHF/DM given discontinued last admit unclear reason Per cards, holding off on further diuretic adjustment/monitor on current regimen Monitor weight/I&O -- weight did decrease on repeat 145.8kg, however noted is BEDSCALE given mobility issues ?low dose Xarelto vs eliquis for DVT prophylaxis entertained by cardiology if fecal occult negative (asked RN to obtain) -- hgb stable and has remained on Heparin SQ while inpatient (2) SOB (shortness of breath): Plan: Acute on Chronic related to COPD, OHS, RASHAAD, CHF (acute on chronic diastolic heart failure). Not on Na restricted diet at SNF, also had her SGLT-2 inhibitor stopped at discharge last admit, suspect worsened HF, now w/ reduced EF to 45- 50% (of note, she did have notes in outpatient pulm in past with increased wheezing after bactrim use ...she did just get done w/ use for a cellulitis RLE) Placed on duonebs QID -- Viviana endorses using these 4x/daily in winter months when she is more at risk w/ infections Ordered mucomyst prior however patient declined this. Had ordered mucinex however patient reporting extreme dry mouth with such and declined wanting to continue Given Solumedrol IV x 2 days Converted to prednisone 40mg 10/06, decreased to 30mg 10/09--> DISCONTINUED after 10/09 dose after discussion with pulmonology Added and continued hypertonic saline nebs for mucus plugging in patient w/ trach --> effective and continued while inpatient Continue vibration vest/chest physiotherapy Lasix as outlined above, did get additional 40mg IV lasix on 10/11, diuretic regimen increased as above Has REMAINED STABLE OFF supplemental O2 since addition of hypertonic saline/diuretics Suspect sputum culture is colonization rather than infection. We will repeat chest x-ray in morning to assess resolution of pulmonary edema. Reports breathing stable (3) Atypical chest pain: Plan: Reported on admit, reason for reported admission Trop negative x 2 CXR w/o acute process ON ADMIT, subsequent noted pulmonary congestion as above, ECHO w/ worse EF EKG unchanged from prior Tele d/c'd 10/02 No CP reported 10/08, however had some reflux symptoms on 10/09 which have resolved and stayed stable with addition of pepcid. Suspect reflux from steroid use, since discontinued and denies any increased reflux/discomfort symptoms EKG w/ CP Monitor (4) Cellulitis: Plan: Concern Cellulitis (mild) of RLE - noted erythema and pain on palpation on b/l LE with 1 open skin lesion on left leg consistent with skin picking [facility] and resumed oral Bactrim 10/02, completed course 10/06 No evidence for cellulitis on exam, monitor for any issues *Of note, prior Bactrim use in past w/ increased wheezing -- could consider pneumonitis from medication, but suspect moreso aspect of acute on chronic CHF exacerbation as outlined above, resolving w/ treatment (5) Weakness: Plan: Related to morbid obesity and chronic R femur fx PT/OT, CM for complex dc issues (6) Fracture of distal end of right femur: Plan: Sustained while inpatient earlier this year w/ fall in the hospital. Ended up transferred to [facility] for rehab, prior to returning inpatient last month due to getting home from rehab and not being strong enough to stand to get into her house. Then was sent to [facility] prior to current admission where she reports they were unable to take care of her and developed cellulitis and worsening shortness of breath/atypical chest pain Chronic, NWB to RLE Pain control, PT/OT consulted (7) Hypothyroidism (acquired): Plan: Continue Levothyroxine, recent increased from 200mcg daily to 225mcg last admission (I increased her Synthroid during last admission w/ fatigue/CHF/constipation symptoms last admission week 08/31) Needs repeat TSH testing ~6 weeks from prior -- may need done while inpatient/awaiting dc plan (8) CKD stage 4 due to type 2 diabetes mellitus: Plan: Creat 1.58 previously (baseline 1.3-1.8) Acute rise to 2.05 likely from diuretics, resolved/stable on repeat and actually improved with additional doses of lasix and remains stable at 1.53 Torsemide increased to 20mg QAM, usual 10mg in evening for now Resumed Jardiance 25mg daily as above for both CHF/DM Avoid nephrotoxic agents when able and renally dose meds when appropriate Monitor kidney function in AM (9) GERD (gastroesophageal reflux disease): Plan: Continue protonix , consider increasing to BID but added pepcid daily w/ good control and will continue current course for now (10) Insulin-requiring or dependent type II diabetes mellitus: Plan: A1c 8.9, holding home agents BSG AC/HS while inpatient, utilizing SSI Prior elevations to 300s on 10/04, likely from IV solu-medrol Pharmacy consulted for glycemic control 10/05, BSGs controlled, coverage loosened since steroids discontinued Jardiance 10 mg daily (11) Anxiety: Plan: Continue home medications Anxiety appears stable currently (12) Morbid obesity with BMI of 60.0-69.9, adult: Plan: - weight loss advised given that it is the root cause of many of her medical issues (13) Tinea: Plan: appears to b/l toenails, stated prior seen by Dr Crump, inquired if anyone would be able to cut them due to her being DM/unable to have someone come in prior Podiatry consulted, Dr Crump Saw patient 10/07, trimmed nails Need outpatient DFC f/u (14) DVT prophylaxis: Plan: Heparin SQ while inpatient -- cards recs for consideration for low dose xarelto 10mg vs eliquis 2.5mg BID at d/c for DVT prophylaxis given limited mobility/immobilized state/bed bound Continuing Heparin SQ for now Plan PT/OT. Case management consult for complex dc needs. Patient does qualify for 90 hours of assistance per week of which she would require. She also will need wheelchair access to her home via ramp, as well as widened doorways to accommodate a wheelchair and repair of hole that is reported in the floor of her home for pt to safely be in her home. She would also require chair lift to get her from first floor to second floor. This has also been documented during her previous admission. Pt is refusing to return to [facility] and during her last admission was refusing to outside of the immediate area. Continued inpatient stay -- placement vs home unclear at this time. Came from [facility], Viviana tells me she had aides screaming at her at [facility] to participate in therapy and her daughter heard them on speaker. She was also told when she was leaving to "not return as they can't take care of you Viviana". This was relayed to CM as well Referrals faxed to [facility], [facility] in meantime Medically stable for discharge awaiting placement this time. Admission and Anticipated Discharge Date Admission Date: October 01, 2022 Subjective No acute concerns or questions from the patient. No worsening shortness of breath. Sputum culture positive for gram-positive bacilli and gram-positive cocci. No fever or chills. Review of Systems Review of Systems: All systems reviewed & are unremarkable except as noted in Subjective Physical Exam Constitutional: + morbidly obese; no acute distress Respiratory: no respiratory distress, no labored breathing and no cough Auscultation: + diminished lung sounds (Bibasal); no crackles and no rales Cardiovascular: Rate/Rhythm: regular rate and regular rhythm Heart Sounds: no murmur Gastrointestinal (Abdomen): normal bowel sounds, soft, nontender, no hepatosplenomegaly Psychiatric: A+Ox3, euthymic affect Results & Data Results & Data ([facility]) Vital Signs (Past 12 Hours) Vital Signs Temp Pulse Resp BP Pulse Ox O2 Del Method 10/13/22 19:53 92 H 22 92 Room Air 10/13/22 19:10 36.9 C 90 20 120/71 94 Room Air 10/13/22 15:46 80 18 94 Room Air 10/13/22 15:12 36.5 C 85 20 113/65 94 Room Air 10/13/22 10:43 72 20 93 Room Air PG Care Time/CCT Total # of Minutes Spent Total Time Spent with Patient: Total time spent is greater than 50% in coordination of care (as documented) at patient's floor/unit and/or counseling patient: Coding Level of Care Code 16060 Subseq Hosp Care Lvl 1 Diagnoses Chronic diastolic congestive heart failure I50.32 SOB (shortness of breath) R06.02 Atypical chest pain R07.89 Cellulitis L03.90 Weakness R53.1 Fracture of distal end of right femur S72.401A Hypothyroidism (acquired) E03.9 CKD stage 4 due to type 2 diabetes mellitus E11.22; N18.4 GERD (gastroesophageal reflux disease) K21.9 Insulin-requiring or dependent type II diabetes mellitus E11.9; Z79.4 Anxiety F41.9 Morbid obesity with BMI of 60.0-69.9, adult E66.01; Z68.44 Tinea B35.9 DVT prophylaxis Z29.9
[2022-10-14] MEDS: oxyCODONE HCL IR 5 MG TAB (IMMEDIATE RELEASE) PO PRN (00:02)
[2022-10-14] MEDS: PANTOprazole 40 MG TAB PO SCH (05:19)
[2022-10-14] MEDS: LEVOTHYROXINE SODIUM 25 MCG TABLET PO SCH (05:19)
[2022-10-14] MEDS: TORSEMIDE 10 MG TAB PO SCH (05:20)
[2022-10-14] MEDS: HEPARIN SOD 5,000 UNIT/0.5 ML VIAL SQ SCH ×3 (05:20→20:28)
[2022-10-14] MEDS: LEVOTHYROXINE SODIUM 200 MCG TABLET PO SCH (05:20)
--- NOTE | 2022-10-14 07:15 | XRay Report ---
SINGLE VIEW CHEST CLINICAL HISTORY: Dyspnea. FINDINGS: 2 AP, portable, upright chest radiographs are compared to study dated 10/07/2022. The nemours foundation is degraded by portable technique and large body habitus. A tracheostomy is again noted. The h eart is enlarged. The pulmonary vascular is noncongested. Chronic interstitial thickening is similar to previous. There is bibasilar scarring/atelectasis. The lungs and pleural spaces are otherwise hunter r. No pneumothorax is seen. The skeletal structures are osteopenic. There are healed bilateral rib fr actures. IMPRESSION: Cardiomegaly with no acute cardiopulmonary abnormality identified. ACT 112: Negative or not required by law. Electronically signed by: Jasper Hancock M.D. 10/14/2022 7:14 AM
[2022-10-14] MEDS: SODIUM CHLOR 7% 4 ML NEB NEB SCH ×2 (07:45→19:17)
[2022-10-14] MEDS: ALBUT/IPRATROP 3MG/0.5MG NEB 3 ML VIAL NEB SCH ×4 (07:45→19:17)
[2022-10-14] MEDS: METOPROLOL TARTRATE 25 MG TAB PO SCH ×2 (08:22→20:26)
[2022-10-14] MEDS: DOCUSATE SODIUM 100 MG CAP PO SCH ×2 (08:22→20:26)
[2022-10-14] MEDS: EMPAGLIFLOZIN 10 MG TAB PO SCH (08:22)
[2022-10-14] MEDS: ISOSORBIDE MONO EXTENDED REL 30 MG TABCR PO SCH (08:22)
[2022-10-14] MEDS: buPROPion SR 100 MG TABCR PO SCH ×2 (08:22→20:25)
[2022-10-14] MEDS: FOLIC ACID 1 MG TAB PO SCH (08:22)
[2022-10-14] MEDS: MULTIVITAMIN TAB PO SCH (08:22)
[2022-10-14] MEDS: ASPIRIN 81 MG ECTAB PO SCH (08:22)
[2022-10-14] MEDS: TOPIRAMATE 100 MG TAB PO SCH ×2 (08:22→20:27)
[2022-10-14] MEDS: MAGNESIUM OXIDE 400 MG TAB PO SCH (08:22)
[2022-10-14] MEDS: BACITRACIN/POLYMYXIN B SULFATE 90 APPLN/28.4 GM TUBE EXT SCH ×2 (08:23→20:25)
[2022-10-14] MEDS: NYSTATIN POWDER 15GM BTL EXT SCH ×2 (08:23→20:27)
[2022-10-14] MEDS: SPIRONOLACTONE 25 MG TAB PO SCH (08:23)
[2022-10-14] MEDS: LANTUS PER UNIT CHARGE SQ SCH ×2 (08:59→21:41)
[2022-10-14] MEDS: INSULIN ASPART PER UNIT SC SCH ×4 (09:00→21:40)
--- NOTE | 2022-10-14 15:23 | Hospitalist Progress Note ---
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 Additional 20mg IV lasix on 10/09 w/ Cr improved to 1.53 Additional 40mg IV lasix x 40mg 10/10 Continue AHA diet/low salt (had been getting vaughn w/ breakfast every day earlier in the week) Cardiology consulted -- follows with Dr Marley. --> increased torsemide to 20mg QAM, holding afternoon dose. Restarted on spironolactone --> Continue Jardiance 10mg daily for CHF/DM given discontinued last admit unclear reason ?low dose Xarelto vs eliquis for DVT prophylaxis entertained by cardiology if fecal occult negative (asked RN to obtain) -- hgb stable and has remained on Heparin SQ while inpatient (2) SOB (shortness of breath): Plan: Acute on Chronic related to COPD, OHS, RASHAAD, CHF (acute on chronic diastolic heart failure). Not on Na restricted diet at SNF, also had her SGLT-2 inhibitor stopped at discharge last admit, suspect worsened HF, now w/ reduced EF to 45- 50% (of note, she did have notes in outpatient pulm in past with increased wheezing after bactrim use ...she did just get done w/ use for a cellulitis RLE) Placed on duonebs QID -- Viviana endorses using these 4x/daily in winter months when she is more at risk w/ infections Ordered mucomyst prior however patient declined this. Had ordered mucinex however patient reporting extreme dry mouth with such and declined wanting to continue Given Solumedrol IV x 2 days Converted to prednisone 40mg 10/06, decreased to 30mg 10/09--> DISCONTINUED after 10/09 dose after discussion with pulmonology Added and continued hypertonic saline nebs for mucus plugging in patient w/ trach --> effective and continued while inpatient Continue vibration vest/chest physiotherapy Lasix as outlined above, did get additional 40mg IV lasix on 10/11, diuretic regimen increased as above Has REMAINED STABLE OFF supplemental O2 since addition of hypertonic saline/diuretics Suspect sputum culture is colonization rather than infection. Repeat CXR improved. Reports breathing stable (3) Atypical chest pain: Plan: Reported on admit, reason for reported admission Trop negative x 2 CXR w/o acute process ON ADMIT, subsequent noted pulmonary congestion as above, ECHO w/ worse EF EKG unchanged from prior Tele d/c'd 10/02 No CP reported 10/08, however had some reflux symptoms on 10/09 which have resolved and stayed stable with addition of pepcid. Suspect reflux from steroid use, since discontinued and denies any increased reflux/discomfort symptoms EKG w/ CP Monitor (4) Cellulitis: Plan: Concern Cellulitis (mild) of RLE - noted erythema and pain on palpation on b/l LE with 1 open skin lesion on left leg consistent with skin picking [facility] and resumed oral Bactrim 10/02, completed course 10/06 No evidence for cellulitis on exam, monitor for any issues *Of note, prior Bactrim use in past w/ increased wheezing -- could consider pneumonitis from medication, but suspect moreso aspect of acute on chronic CHF exacerbation as outlined above, resolving w/ treatment (5) Weakness: Plan: Related to morbid obesity and chronic R femur fx PT/OT, CM for complex dc issues (6) Fracture of distal end of right femur: Plan: Sustained while inpatient earlier this year w/ fall in the hospital. Ended up transferred to tertiary facility, [facility] for rehab, prior to returning inpatient last month due to getting home from rehab and not being strong enough to stand to get into her house. Then was sent to [facility] prior to current admission where she reports they were unable to take care of her and developed cellulitis and worsening shortness of breath/atypical chest pain Chronic, NWB to RLE Pain control, PT/OT consulted (7) Hypothyroidism (acquired): Plan: Continue Levothyroxine, recent increased from 200mcg daily to 225mcg last admission Needs repeat TSH testing ~6 weeks from prior -- may need done while inpatient/aw aiting dc plan (8) GERD (gastroesophageal reflux disease): Plan: Continue protonix , consider increasing to BID but added pepcid daily w/ good control and will continue current course for now (9) Insulin-requiring or dependent type II diabetes mellitus: Plan: A1c 8.9, holding home agents BSG AC/HS while inpatient, utilizing SSI Prior elevations to 300s on 10/04, likely from IV solu-medrol Pharmacy consulted for glycemic control 10/05, BSGs controlled, coverage loosened since steroids discontinued Jardiance 10 mg daily (10) Anxiety: Plan: Continue home medications Anxiety appears stable currently (11) Morbid obesity with BMI of 60.0-69.9, adult: Plan: - weight loss advised given that it is the root cause of many of her medical issues (12) Tinea: Plan: appears to b/l toenails, stated prior seen by Dr Crump, inquired if anyone would be able to cut them due to her being DM/unable to have someone come in prior Podiatry consulted, Dr Crump Saw patient 10/07, trimmed nails Need outpatient DFC f/u (13) DVT prophylaxis: Plan: Heparin SQ while inpatient -- cards recs for consideration for low dose xarelto 10mg vs eliquis 2.5mg BID at d/c for DVT prophylaxis given limited mobility/immobilized state/bed bound Continuing Heparin SQ for now (14) Chronic kidney disease, stage 3: Plan PT/OT. Case management consult for complex dc needs. Patient does qualify for 90 hours of assistance per week of which she would require. She also will need wheelchair access to her home via ramp, as well as widened doorways to a ccommodate a wheelchair and repair of hole that is reported in the floor of her home for pt to safely be in her home. She would also require chair lift to get her from first floor to second floor. This has also been documented during her previous admission. Pt is refusing to return to [facility] and during her last admission was refusing to outside of the immediate area. Continued inpatient stay -- placement vs home unclear at this time. Came from [facility], Viviana tells me she had aides screaming at her at [facility] to participate in therapy and her daughter heard them on speaker. She was also told when she was leaving to "not return as they can't take care of you Viviana". This was relayed to CM as well Referrals faxed to [facility], [facility] in meantime Medically stable for discharge awaiting placement this time. Admission and Anticipated Discharge Date Admission Date: October 01, 2022 Subjective No acute concerns or questions from the patient. No worsening of her shortness of breath. Review of Systems Review of Systems: All systems reviewed & are unremarkable except as noted in Subjective Physical Exam Constitutional: + morbidly obese; no acute distress Respiratory: no respiratory distress, no labored breathing and no cough Auscultation: + diminished lung sounds (Bibasal); no crackles and no rales Cardiovascular: Rate/Rhythm: regular rate and regular rhythm Heart Sounds: no murmur Gastrointestinal (Abdomen): normal bowel sounds, soft, nontender, no hepatosplenomegaly Psychiatric: A+Ox3, euthymic affect Results & Data Results & Data ([facility]) Vital Signs (Past 12 Hours) Vital Signs Temp Pulse Resp BP Pulse Ox O2 Del Method O2 Flow Rate 10/14/22 10:52 77 20 93 Room Air 10/14/22 09:34 Room Air 10/14/22 07:55 74 20 94 Room Air 10/14/22 07:07 36.5 C 68 18 125/73 96 Trach Collar 6 PG Care Time/CCT Total # of Minutes Spent Total Time Spent with Patient: Total time spent is greater than 50% in coordination of care (as documented) at patient's floor/unit and/or counseling patient: Coding Level of Care Code 67204 Subseq Hosp Care Lvl 1 Diagnoses Chronic diastolic congestive heart failure I50.32 SOB (shortness of breath) R06.02 Atypical chest pain R07.89 Cellulitis L03.90 Weakness R53.1 Fracture of distal end of right femur S72.401A Hypothyroidism (acquired) E03.9 GERD (gastroesophageal reflux disease) K21.9 Insulin-requiring or dependent type II diabetes mellitus E11.9; Z79.4 Anxiety F41.9 Morbid obesity with BMI of 60.0-69.9, adult E66.01; Z68.44 Tinea B35.9 DVT prophylaxis Z29.9 Chronic kidney disease, stage 3 N18.30
[2022-10-14] MEDS: ATORVASTATIN 40 MG TAB PO SCH (20:25)
[2022-10-15] MEDS: HEPARIN SOD 5,000 UNIT/0.5 ML VIAL SQ SCH ×3 (06:19→20:45)
[2022-10-15] MEDS: LEVOTHYROXINE SODIUM 25 MCG TABLET PO SCH (06:20)
[2022-10-15] MEDS: LEVOTHYROXINE SODIUM 200 MCG TABLET PO SCH (06:21)
[2022-10-15] MEDS: PANTOprazole 40 MG TAB PO SCH (06:21)
[2022-10-15] MEDS: TORSEMIDE 10 MG TAB PO SCH (06:21)
[2022-10-15] MEDS: ALBUT/IPRATROP 3MG/0.5MG NEB 3 ML VIAL NEB SCH ×4 (07:26→20:03)
[2022-10-15] MEDS: SODIUM CHLOR 7% 4 ML NEB NEB SCH ×2 (07:26→20:04)
[2022-10-15] MEDS: SPIRONOLACTONE 25 MG TAB PO SCH (08:34)
[2022-10-15] MEDS: METOPROLOL TARTRATE 25 MG TAB PO SCH ×2 (08:34→20:42)
[2022-10-15] MEDS: MULTIVITAMIN TAB PO SCH (08:34)
[2022-10-15] MEDS: ASPIRIN 81 MG ECTAB PO SCH (08:34)
[2022-10-15] MEDS: MAGNESIUM OXIDE 400 MG TAB PO SCH (08:35)
[2022-10-15] MEDS: EMPAGLIFLOZIN 10 MG TAB PO SCH (08:35)
[2022-10-15] MEDS: TOPIRAMATE 100 MG TAB PO SCH ×2 (08:35→20:44)
[2022-10-15] MEDS: ISOSORBIDE MONO EXTENDED REL 30 MG TABCR PO SCH (08:35)
[2022-10-15] MEDS: buPROPion SR 100 MG TABCR PO SCH ×2 (08:35→20:42)
[2022-10-15] MEDS: FOLIC ACID 1 MG TAB PO SCH (08:35)
[2022-10-15] MEDS: BACITRACIN/POLYMYXIN B SULFATE 90 APPLN/28.4 GM TUBE EXT SCH ×2 (08:36→20:45)
[2022-10-15] MEDS: NYSTATIN POWDER 15GM BTL EXT SCH ×2 (08:36→20:44)
[2022-10-15] MEDS: LANTUS PER UNIT CHARGE SQ SCH ×2 (08:38→20:53)
[2022-10-15] MEDS: INSULIN ASPART PER UNIT SC SCH ×4 (08:38→20:54)
[2022-10-15] MEDS: DOCUSATE SODIUM 100 MG CAP PO SCH ×2 (08:41→20:43)
--- NOTE | 2022-10-15 09:16 | Hospitalist Progress Note ---
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 Additional 20mg IV lasix on 10/09 w/ Cr improved to 1.53 Additional 40mg IV lasix x 40mg 10/10 Continue AHA diet/low salt (had been getting vaughn w/ breakfast every day earlier in the week) Cardiology consulted -- follows with Dr Marley. --> increased torsemide to 20mg QAM, holding afternoon dose. Restarted on spironolactone --> Continue Jardiance 10mg daily for CHF/DM given discontinued last admit unclear reason ?low dose Xarelto vs eliquis for DVT prophylaxis entertained by cardiology if fecal occult negative (asked RN to obtain) -- hgb stable and has remained on Heparin SQ while inpatient (2) SOB (shortness of breath): Plan: Acute on Chronic related to COPD, OHS, RASHAAD, CHF (acute on chronic diastolic heart failure). Not on Na restricted diet at SNF, also had her SGLT-2 inhibitor stopped at discharge last admit, suspect worsened HF, now w/ reduced EF to 45- 50% (of note, she did have notes in outpatient pulm in past with increased wheezing after bactrim use ...she did just get done w/ use for a cellulitis RLE) Placed on duonebs QID -- Viviana endorses using these 4x/daily in winter months when she is more at risk w/ infections Ordered mucomyst prior however patient declined this. Had ordered mucinex however patient reporting extreme dry mouth with such and declined wanting to continue Given Solumedrol IV x 2 days Converted to prednisone 40mg 10/06, decreased to 30mg 10/09--> DISCONTINUED after 10/09 dose after discussion with pulmonology Added and continued hypertonic saline nebs for mucus plugging in patient w/ trach --> effective and continued while inpatient Continue vibration vest/chest physiotherapy Lasix as outlined above, did get additional 40mg IV lasix on 10/11, diuretic regimen increased as above Has REMAINED STABLE OFF supplemental O2 since addition of hypertonic saline/diuretics Suspect sputum culture is colonization rather than infection. Repeat CXR improved. Reports breathing stable (3) Atypical chest pain: Plan: Reported on admit, reason for reported admission Trop negative x 2 CXR w/o acute process ON ADMIT, subsequent noted pulmonary congestion as above, ECHO w/ worse EF EKG unchanged from prior Tele d/c'd 10/02 No CP reported 10/08, however had some reflux symptoms on 10/09 which have resolved and stayed stable with addition of pepcid. Suspect reflux from steroid use, since discontinued and denies any increased reflux/discomfort symptoms EKG w/ CP Monitor (4) Cellulitis: Plan: Concern Cellulitis (mild) of RLE - noted erythema and pain on palpation on b/l LE with 1 open skin lesion on left leg consistent with skin picking [facility] and resumed oral Bactrim 10/02, completed course 10/06 No evidence for cellulitis on exam, monitor for any issues *Of note, prior Bactrim use in past w/ increased wheezing -- could consider pneumonitis from medication, but suspect moreso aspect of acute on chronic CHF exacerbation as outlined above, resolving w/ treatment (5) Weakness: Plan: Related to morbid obesity and chronic R femur fx PT/OT, CM for complex dc issues (6) Fracture of distal end of right femur: Plan: Sustained while inpatient earlier this year w/ fall in the hospital. Ended up transferred to tertiary facility, [facility] for rehab, prior to returning inpatient last month due to getting home from rehab and not being strong enough to stand to get into her house. Then was sent to [facility] prior to current admission where she reports they were unable to take care of her and developed cellulitis and worsening shortness of breath/atypical chest pain Chronic, NWB to RLE Pain control, PT/OT consulted (7) Hypothyroidism (acquired): Plan: Continue Levothyroxine, recent increased from 200mcg daily to 225mcg last admission Needs repeat TSH testing ~6 weeks from prior -- may need done while inpatien t/awaiting dc plan (8) GERD (gastroesophageal reflux disease): Plan: Continue protonix , consider increasing to BID but added pepcid daily w/ good control and will continue current course for now (9) Insulin-requiring or dependent type II diabetes mellitus: Plan: A1c 8.9, holding home agents BSG AC/HS while inpatient, utilizing SSI Prior elevations to 300s on 10/04, likely from IV solu-medrol Pharmacy consulted for glycemic control 10/05, BSGs controlled, coverage loosened since steroids discontinued Jardiance 10 mg daily (10) Anxiety: Plan: Continue home medications Anxiety appears stable currently (11) Morbid obesity with BMI of 60.0-69.9, adult: Plan: - weight loss advised given that it is the root cause of many of her medical issues (12) Tinea: Plan: appears to b/l toenails, stated prior seen by Dr Crump, inquired if anyone would be able to cut them due to her being DM/unable to have someone come in prior Podiatry consulted, Dr Crump Saw patient 10/07, trimmed nails Need outpatient [facility] f/u (13) DVT prophylaxis: Plan: Heparin SQ while inpatient -- cards recs for consideration for low dose xarelto 10mg vs eliquis 2.5mg BID at d/c for DVT prophylaxis given limited mobility/immobilized state/bed bound Continuing Heparin SQ for now (14) Chronic kidney disease, stage 3: Plan: Cr stable within her baseline Repeat BMP this morning Plan PT/OT. Case management consult for complex dc needs. Patient does qualify for 90 hours of assistance per week of which she would require. She also will need wheelchair access to her home via ramp, as well as widened doorways to accommodate a wheelchair and repair of hole that is reported in the floor of her home for pt to safely be in her home. She would also require chair lift to get her from first floor to second floor. This has also been documented during her previous admission. Pt is refusing to return to [facility] and during her last admission was refusing to outside of the immediate area. Continued inpatient stay -- placement vs home unclear at this time. Came from [facility], Viviana tells me she had aides screaming at her at [facility] to participate in therapy and her daughter heard them on speaker. She was also told when she was leaving to "not return as they can't take care of you Viviana". This was relayed to CM as well Referrals faxed to [facility], [facility] in meantime Medically stable for discharge awaiting placement this time. Admission and Anticipated Discharge Date Admission Date: October 01, 2022 Subjective Evaluated this morning. Doing MUCH better per patient. Breathing stable, eating/drinking/moving bowels no issue. Continues on current medication regimen, labs pending from this morning to ensure kidney function stable. Awaiting assistance for placement issues. Questions/concerns addressed. Review of Systems Review of Systems: All systems reviewed & are unremarkable except as noted in HPI & below Physical Exam Physical Exam: General: WD/morbidly obese female sitting up in bed, NAD HEENT: head normocephalic, thick neck, +metal trach, mmm Resp: diminished in the bases, posterior rhonchi R lower lobes, otherwise resolved. on room air, no wheezing CV: RRR, no m/r/g, no pitting edema, calves nontender, cap refill wnl MSK/Neuro: generalized weakness b/l LE, NVI, pulses palpable Psych: AOx3, cooperative and pleasant Skin: dry flaking to LE, no further cellulitis/erythema, opened scab covered with optifoam to L medial inferior knee, nonpainful toenails with fungal appearance s/p trimming 1st hallux nail on the left unroofed/removed by podiatry , no drainage/pain/erythema Results & Data Results & Data ([facility]) Vital Signs (Past 12 Hours) Vital Signs Temp Pulse Resp BP Pulse Ox Pulse Ox O2 Del Method 10/15/22 08:38 36.6 C 75 20 105/63 91 Room Air 10/15/22 07:28 79 18 95 Room Air 10/14/22 23:57 97 10/14/22 23:57 77 18 97 Trach Collar O2 Del Method 10/15/22 08:38 10/15/22 07:28 11/24/22 23:57 Room Air 10/14/22 23:57 Laboratory Results 10/15/22 10/15/22 10/14/22 Range/Units 09:22 08:10 20:37 Sodium 136 (136-145) mmol/L Potassium 3.6 (3.5-5.1) mmol/L Chloride 102 (98-107) mmol/L Carbon Dioxide 25 (21-32) mmol/L Anion Gap 9 (3-11) BUN 29 H (6-23) mg/dl Creatinine 1.74 H (0.6-1.2) mg/dl Est Cr Clr Drug Dosing 44.4 ml/min Est GFR ( Amer) 34.8 ml/min Est GFR (Non-Af Amer) 30.0 ml/min BUN/Creatinine Ratio 16.7 (10-20) Glucose 199 H (70-99(Fasting)) mg/dl POC Glucose 171 H 186 H (70-99) mg/dl Calcium 9.1 (8.5-10.1) mg/dl 10/14/22 10/14/22 Range/Units 17:18 12:05 Sodium (136-145) mmol/L Potassium (3.5-5.1) mmol/L Chloride (98-107) mmol/L Carbon Dioxide (21-32) mmol/L Anion Gap (3-11) BUN (6-23) mg/dl Creatinine (0.6-1.2) mg/dl Est Cr Clr Drug Dosing ml/min Est GFR ( Amer) ml/min Est GFR (Non-Af Amer) ml/min BUN/Creatinine Ratio (10-20) Glucose (70-99(Fasting)) mg/dl POC Glucose 132 H 183 H (70-99) mg/dl Calcium (8.5-10.1) mg/dl PG Care Time/CCT Total # of Minutes Spent Total Time Spent with Patient: Total time spent is greater than 50% in coordination of care (as documented) at patient's floor/unit and/or counseling patient: Coding Level of Care Code 16070 Subseq Hosp Care Lvl 2 Diagnoses Chronic diastolic congestive heart failure I50.32 SOB (shortness of breath) R06.02 Atypical chest pain R07.89 Cellulitis L03.90 Weakness R53.1 Fracture of distal end of right femur S72.401A Hypothyroidism (acquired) E03.9 GERD (gastroesophageal reflux disease) K21.9 Insulin-requiring or dependent type II diabetes mellitus E11.9; Z79.4 Anxiety F41.9 Morbid obesity with BMI of 60.0-69.9, adult E66.01; Z68.44 Tinea B35.9 DVT prophylaxis Z29.9 Chronic kidney disease, stage 3 N18.30
[2022-10-15 09:56] LABS: BUN Creatinine Ratio 16.7 (10-20); Calcium 9.1 mg/dl (8.5-10.1); Creatinine Clr Calc Pharmacy 44.4 ml/min; Est GFR (African American) 34.8 ml/min; Potassium 3.6 mmol/L (3.5-5.1)
[2022-10-15] MEDS: POTASSIUM CHLORIDE CRTAB 20 MEQ TABCR PO SCH (11:29)
--- NOTE | 2022-10-15 12:22 | Pharmacy Report ---
Pharmacy Glycemic Short Note 2 - Date of Service October 15, 2022 - Glycemic Short BSG Results (Last 24 hours): 10/14/22 10/14/22 10/15/22 17:18 20:37 08:10 Glucose POC Glucose 132 H 186 H 171 H 10/15/22 10/15/22 09:22 11:51 Glucose 199 H POC Glucose 208 H OUTPATIENT ANTIDIABETIC REGIMEN: * Lantus 80 units SC BID * Humalog scale * HbA1C = 8.9% (07/25/22) ASSESSMENT: 10/15: * Whit received a total of 150 units of insulin yesterday, 80 units basal + 70 units bolus. BSGs were: [phone] mg/dL. * Tightened carb ratio yesterday. * Fasting BSG increased to 171 mg/dL today. Will increase basal by 20%. * No changes to Novolog. 10/13: * Patient's BSGs yesterday were [phone] mg/dL. Patient received 137 units of insulin (70 units of basal and 67 units of bolus). * Patient's BSGs today are 167-206 mg/dL. * Fasting above goal range- increase by 10% to 40 units BID * Tighten CR since BSGs trending upwards. 10/12: * Whit received 131 units of insulin yesterday, 60 units basal + 71 units bolus. BSGs were acceptable: [phone] mg/dL. * Fasting BSG continues to increase for the second day and was 156 mg/dL this AM. Will increase basal by ~15% this morning. * Patient was started on Jardiance for combination of heart failure and type 2 diabetes yesterday. Dose was 25 mg which patient received x 2 now. Recommended reduction to 10 mg daily as these tablets cannot be cut in half and we only have 10 mg tabs on formulary. Provider agreed to reduce dose to 10 mg and discharge with a prescription for 25 mg. Will reduce carb ratio slightly this AM given Jardiance addition. PLAN FOR INPATIENT GLYCEMIC CONTROL: * Jardiance 10 mg PO AM * Basal insulin * Lantus 48 units SC BID * Bolus insulin * NovoLog per scale ACHS or Q6hrs while NPO * Goal Range: Low 110 mg/dL - High 140 mg/dL * Correction Factor: 10 mg/dL/unit * Nutritional / Prandial insulin per carb ratio of 1 unit per 2.5 grams CHO consumed
[2022-10-15] MEDS: oxyCODONE HCL IR 5 MG TAB (IMMEDIATE RELEASE) PO PRN (15:59)
--- NOTE | 2022-10-15 17:05 | Cardiology Progress Note ---
Date of Service October 15, 2022 Assessment & Plan (1) Acute on chronic heart failure with preserved ejection fraction (HFpEF): Plan: Testing today for millimole per liter and Creatinine has trended up from 1.57-->1.75--> 1.52--> 1.74 Potassium today 10/15/2022, 3.6 Continue torsemide 20 mg p.o. daily Hold torsemide 10 mg daily at 2 PM Resume spironolactone 25 mg daily Hold potassium chloride 20 mEq twice daily Agree with reducing Jardiance dose from 25 to 10 mg daily May need to permit some degree of azotemia to keep her volume status stable. (2) Fracture of distal end of right femur: Plan: For now continue subcutaneous heparin. -Consider Xarelto 10 mg daily at discharge for DVT prophylaxis given VTE risk long-term, however Hemoccult positive stool in the setting of sitting hemoglobin noted. Admission and Anticipated Discharge Date Admission Date: October 01, 2022 Subjective Patient seen in follow-up. She is in good spirits. Respiratory status is stable. She is not on telemetry. Physical Exam Constitutional: + morbidly obese; no acute distress Respiratory: no respiratory distress, no labored breathing and no cough Auscultation: + diminished lung sounds (Reduced breath sounds bilaterally at the bases); no crackles and no rales Cardiovascular: Rate/Rhythm: regular rate and regular rhythm Heart Sounds: no murmur Extremities: + edema (Trace lower extremity edema bilaterally) Gastrointestinal (Abdomen): normal bowel sounds, soft, nontender, no hepatosplenomegaly Neurologic: PERRL, EOMI, accommodation nl, no face palsy, no dysarthria Results & Data ([facility]) Vital Signs (Past 12 Hours) Vital Signs Temp Pulse Resp BP Pulse Ox O2 Del Method 10/15/22 15:11 80 18 95 Room Air 10/15/22 14:31 36.5 C 82 18 111/67 94 Room Air 10/15/22 11:17 83 18 97 Room Air 10/15/22 07:45 Room Air 10/15/22 08:38 36.6 C 75 20 105/63 91 Room Air 10/15/22 07:28 79 18 95 Room Air
[2022-10-15] MEDS: ATORVASTATIN 40 MG TAB PO SCH (20:44)
[2022-10-16] MEDS: LEVOTHYROXINE SODIUM 200 MCG TABLET PO SCH (06:01)
[2022-10-16] MEDS: PANTOprazole 40 MG TAB PO SCH (06:02)
[2022-10-16] MEDS: LEVOTHYROXINE SODIUM 25 MCG TABLET PO SCH (06:02)
[2022-10-16] MEDS: TORSEMIDE 10 MG TAB PO SCH (06:02)
[2022-10-16] MEDS: HEPARIN SOD 5,000 UNIT/0.5 ML VIAL SQ SCH ×3 (06:03→21:17)
[2022-10-16] MEDS: ALBUT/IPRATROP 3MG/0.5MG NEB 3 ML VIAL NEB SCH ×4 (08:10→20:23)
[2022-10-16] MEDS: SODIUM CHLOR 7% 4 ML NEB NEB SCH ×2 (08:10→20:24)
[2022-10-16] MEDS: INSULIN ASPART PER UNIT SC SCH ×4 (08:36→21:24)
[2022-10-16] MEDS: LANTUS PER UNIT CHARGE SQ SCH ×2 (08:37→21:25)
[2022-10-16] MEDS: METOPROLOL TARTRATE 25 MG TAB PO SCH ×2 (08:44→21:16)
[2022-10-16] MEDS: EMPAGLIFLOZIN 10 MG TAB PO SCH (08:45)
[2022-10-16] MEDS: FOLIC ACID 1 MG TAB PO SCH (08:46)
[2022-10-16] MEDS: MAGNESIUM OXIDE 400 MG TAB PO SCH (08:46)
[2022-10-16] MEDS: buPROPion SR 100 MG TABCR PO SCH ×2 (08:46→21:15)
[2022-10-16] MEDS: MULTIVITAMIN TAB PO SCH (08:47)
[2022-10-16] MEDS: TOPIRAMATE 100 MG TAB PO SCH ×2 (08:47→21:16)
[2022-10-16] MEDS: POTASSIUM CHLORIDE CRTAB 20 MEQ TABCR PO SCH (08:47)
[2022-10-16] MEDS: ISOSORBIDE MONO EXTENDED REL 30 MG TABCR PO SCH (08:47)
[2022-10-16] MEDS: ASPIRIN 81 MG ECTAB PO SCH (08:48)
[2022-10-16] MEDS: SPIRONOLACTONE 25 MG TAB PO SCH (08:48)
[2022-10-16] MEDS: NYSTATIN POWDER 15GM BTL EXT SCH ×2 (08:49→21:26)
[2022-10-16] MEDS: BACITRACIN/POLYMYXIN B SULFATE 90 APPLN/28.4 GM TUBE EXT SCH ×2 (08:49→21:26)
[2022-10-16] MEDS: DOCUSATE SODIUM 100 MG CAP PO SCH ×2 (08:52→21:15)
--- NOTE | 2022-10-16 10:44 | Hospitalist Progress Note ---
Date of Service October 16, 2022 Assessment & Plan (1) SOB (shortness of breath): Plan: - Acute on Chronic related to COPD, OHS, RASHAAD, CHF - Continue meds - Resume prn Duonebs and inhalers - Ordered mucomyst but patient refused - Reordered Mucinex but pt claims she cannot swallow and they cannot be cut - ordered Guaifenesin 200mg (liq) PO q6 - Requested chest compression device, will utilize BID - Getting hypertonic saline nebs (2) Chronic diastolic congestive heart failure: Plan: - noted 15kg weight gain since 09/09 - echo 2020 EF 55-60% - continue torsemide, spironolactone, metoprolol, isosorbide mononitrate, ASA, atorvastatin - ordered repeat echo--EF 45-50% but otherwise no significant changes from prior exam - ordered daily weights and I/O monitoring, low salt diet - has been treated for a/c diastolic chf exacerbation intermittently with doses of IV Lasix --> appears compensated at this point but still not at dry weight - Now on Torsemide 20mg daily (as opposed to 10mg BID prior to admit) and resumed Spironolactone - Continue Jardiance 10mg daily - Cardiology following, appreciate assistance (3) Atypical chest pain: Plan: - vitals stable on admit, pulse ox 94% room air - Troponin negative x2 - CXR:No acute chest disease. Cardiomegaly is noted. - EKG: unchanged from previous - No further c/o CP and w/u unremarkable - d/c'd tele 10/02, now on med/surg issue has resolved (4) Weakness: Plan: - Related to morbid obesity and chronic R femur fx - PT/OT - Case management for complex dc issues (5) Fracture of distal end of right femur: Plan: - Chronic, NWB to RLE - PT/OT - Pain control (6) Hypothyroidism (acquired): Plan: - Continue Levothyroxine, recent increased from 200mcg daily to 225mcg (7) CKD stage 4 due to type 2 diabetes mellitus: Plan: -Creat has slightly uptrended with diuresis but still within baseline (baseline 1.3-1.8) (8) GERD (gastroesophageal reflux disease): Plan: -Continue protonix (9) Insulin-requiring or dependent type II diabetes mellitus: Plan: -SSI -glargine 80U BID (10) Anxiety: Plan: - Resume home meds (11) Morbid obesity with BMI of 60.0-69.9, adult: Plan: - weight loss advised given that it is the root cause of many of her medical issues Plan Continue PT/OT. Case management consult for complex dc needs. Patient does qualify for 90 hours of assistance per week starting Oct 21 of which she would require. She also will need wheelchair access to her home via ramp, as well as widened doorways to accommodate a wheelchair and repair of hole that is reported in the floor of her home for pt to safely be in her home. She would also require chair lift to get her from first floor to second floor. This has also been documented during her previous admission. Pt is refusing to return to [facility] and during her last admission was refusing to outside of the immediate area. Evidently, per notes, plan is for her to return home once the ramp is built for wheelchair access into the home but it is not known when this will be completed. Plan d/w Dr. Salazar. Admission and Anticipated Discharge Date Admission Date: October 01, 2022 Review of Systems Review of Systems: All systems reviewed and are unremarkable except as noted in HPI and below. Denies fever, chills, fatigue, headache, nasal congestion, sore throat, chest pain, palpitations, orthopnea, PND, abdominal pain, n/v/d, constipation, dysuria, hematuria, frequency, back pain, easy bruising or bleeding. Physical Exam Physical Exam: GENERAL: 67 yo Well-developed, well-nourished morbidly obese WF. NAD NECK: metal trach noted LUNGS: Some mild scattered end expiratory wheezes throughout CARDIOVASCULAR: Regular rate and rhythm. ABDOMEN: Obese, soft, non-tender and non-distended. BS normoactive x 4 quad. EXTREMITIES: Trace edema. Non-tender. Peripheral pulses +2/4. NEUROLOGIC: A&O x3. Nonfocal PSYCHIATRIC: Cooperative. Appropriate mood and affect. SKIN: Warm, dry, intact. multiple excoriations to RLE and small nickel size open lesion LLE Results & Data Results & Data ([facility]) Vital Signs (Past 12 Hours) Vital Signs Temp Pulse Resp BP Pulse Ox O2 Del Method O2 Flow Rate 10/16/22 08:10 74 18 97 Room Air 10/16/22 07:14 36.5 C 74 20 143/74 H 94 Room Air 10/16/22 06:00 133/71 98 Room Air 10/15/22 23:16 22 96 Trach Collar 6 FiO2 10/16/22 08:10 10/16/22 07:14 10/16/22 06:00 10/15/22 23:16 28 PG Care Time/CCT Total # of Minutes Spent Total Time Spent with Patient: Total time spent is greater than 50% in coordination of care (as documented) at patient's floor/unit and/or counseling patient: Coding Level of Care Code 93696 Subseq Hosp Care Lvl 1 Diagnoses SOB (shortness of breath) R06.02 Chronic diastolic congestive heart failure I50.32 Atypical chest pain R07.89 Weakness R53.1 Fracture of distal end of right femur S72.401A Hypothyroidism (acquired) E03.9 CKD stage 4 due to type 2 diabetes mellitus E11.22; N18.4 GERD (gastroesophageal reflux disease) K21.9 Insulin-requiring or dependent type II diabetes mellitus E11.9; Z79.4 Anxiety F41.9 Morbid obesity with BMI of 60.0-69.9, adult E66.01; Z68.44
[2022-10-16] MEDS: ATORVASTATIN 40 MG TAB PO SCH (21:16)
[2022-10-17] MEDS: ACETAMINOPHEN 325 MG TAB PO PRN ×3 (00:03→16:43)
[2022-10-17] MEDS: LEVOTHYROXINE SODIUM 200 MCG TABLET PO SCH (06:01)
[2022-10-17] MEDS: LEVOTHYROXINE SODIUM 25 MCG TABLET PO SCH (06:01)
[2022-10-17] MEDS: PANTOprazole 40 MG TAB PO SCH (06:01)
[2022-10-17] MEDS: TORSEMIDE 10 MG TAB PO SCH (06:01)
[2022-10-17] MEDS: HEPARIN SOD 5,000 UNIT/0.5 ML VIAL SQ SCH ×3 (06:01→21:50)
[2022-10-17] MEDS: ALBUT/IPRATROP 3MG/0.5MG NEB 3 ML VIAL NEB SCH ×4 (07:46→20:09)
[2022-10-17] MEDS: SODIUM CHLOR 7% 4 ML NEB NEB SCH ×2 (07:46→20:09)
[2022-10-17] MEDS: TOPIRAMATE 100 MG TAB PO SCH ×2 (08:58→21:50)
[2022-10-17] MEDS: POTASSIUM CHLORIDE CRTAB 20 MEQ TABCR PO SCH (08:58)
[2022-10-17] MEDS: SPIRONOLACTONE 25 MG TAB PO SCH (08:58)
[2022-10-17] MEDS: ASPIRIN 81 MG ECTAB PO SCH (08:58)
[2022-10-17] MEDS: EMPAGLIFLOZIN 10 MG TAB PO SCH (08:58)
[2022-10-17] MEDS: ISOSORBIDE MONO EXTENDED REL 30 MG TABCR PO SCH (08:58)
[2022-10-17] MEDS: buPROPion SR 100 MG TABCR PO SCH ×2 (08:58→21:48)
[2022-10-17] MEDS: FOLIC ACID 1 MG TAB PO SCH (08:58)
[2022-10-17] MEDS: MAGNESIUM OXIDE 400 MG TAB PO SCH (08:58)
[2022-10-17] MEDS: MULTIVITAMIN TAB PO SCH (08:58)
[2022-10-17] MEDS: METOPROLOL TARTRATE 25 MG TAB PO SCH ×2 (08:59→21:49)
[2022-10-17] MEDS: NYSTATIN POWDER 15GM BTL EXT SCH ×2 (09:01→21:51)
[2022-10-17] MEDS: DOCUSATE SODIUM 100 MG CAP PO SCH ×2 (09:02→21:58)
[2022-10-17] MEDS: BACITRACIN/POLYMYXIN B SULFATE 90 APPLN/28.4 GM TUBE EXT SCH ×2 (09:02→21:00)
[2022-10-17] MEDS: LANTUS PER UNIT CHARGE SQ SCH ×2 (09:04→21:55)
[2022-10-17] MEDS: INSULIN ASPART PER UNIT SC SCH ×4 (09:04→21:56)
--- NOTE | 2022-10-17 12:11 | Hospitalist Progress Note ---
Date of Service October 17, 2022 Assessment & Plan (1) SOB (shortness of breath): Plan: - Acute on Chronic related to COPD, OHS, RASHAAD, CHF - Continue meds - Resume prn Duonebs and inhalers - Ordered mucomyst but patient refused - Reordered Mucinex but pt claims she cannot swallow and they cannot be cut - ordered Guaifenesin 200mg (liq) PO q6 - Requested chest compression device, will utilize BID - Getting hypertonic saline nebs to help with mucus (2) Chronic diastolic congestive heart failure: Plan: - noted 15kg weight gain since 09/09 - echo 2020 EF 55-60% - continue torsemide, spironolactone, metoprolol, isosorbide mononitrate, ASA, atorvastatin - ordered repeat echo--EF 45-50% but otherwise no significant changes from prior exam - ordered daily weights and I/O monitoring, low salt diet - has been treated for a/c diastolic chf exacerbation intermittently with doses of IV Lasix --> appears compensated at this point but still not at dry weight - Now on Torsemide 20mg daily (as opposed to 10mg BID prior to admit) and resumed Spironolactone - Continue Jardiance 10mg daily - Cardiology following, appreciate assistance (3) Atypical chest pain: Plan: - vitals stable on admit, pulse ox 94% room air - Troponin negative x2 - CXR:No acute chest disease. Cardiomegaly is noted. - EKG: unchanged from previous - No further c/o CP and w/u unremarkable - d/c'd tele 10/02, now on med/surg issue has resolved (4) Weakness: Plan: - Related to morbid obesity and chronic R femur fx - PT/OT - Case management for complex dc issues (5) Fracture of distal end of right femur: Plan: - Chronic, NWB to RLE - PT/OT - Pain control -- APAP, was previously rx'd OxyIR but this was discontinued at some point (6) Hypothyroidism (acquired): Plan: - Continue Levothyroxine, recent increased from 200mcg daily to 225mcg (7) CKD stage 4 due to type 2 diabetes mellitus: Plan: - Creat has slightly uptrended with diuresis but still within baseline (baseline 1.3-1.8) (8) GERD (gastroesophageal reflux disease): Plan: - Continue protonix (9) Insulin-requiring or dependent type II diabetes mellitus: Plan: - SSI - glargine 80U BID (10) Anxiety: Plan: - Resume home meds (11) Morbid obesity with BMI of 60.0-69.9, adult: Plan: - weight loss advised given that it is the root cause of many of her medical issues Plan Continue PT/OT. Case management consult for complex dc needs. Patient does qualify for 90 hours of assistance per week starting Oct 21 of which she would require. She also will need wheelchair access to her home via ramp, as well as widened doorways to accommodate a wheelchair and repair of hole that is reported in the floor of her home for pt to safely be in her home. She would also require chair lift to get her from first floor to second floor. This has also been documented during her previous admission. Pt is refusing to return to [facility] and during her last admission was refusing to outside of the immediate area. Evidently, per notes, plan is for her to return home once the ramp is built for wheelchair access into the home but it is not known when this will be completed. Plan d/w Dr. Hampton. Admission and Anticipated Discharge Date Admission Date: October 01, 2022 Supervising Physician Co-Signing Physician Notes Attending Attestation - Chart reviewed, care plan d/w KATIE Shah. I agree w/ the pappas components of her documentation. Gregory Hampton MD Subjective Patient is seen on daily rounds this morning. She has no new complaints/concerns. Notes that she occasionally is bringing up thick mucus, no shortness of breath. No cp or palpitations. Her current request is for a doctor's note to excuse her from appearing at a hearing scheduled in November. Review of Systems Review of Systems: All systems reviewed and are unremarkable except as noted in HPI and below. Denies fever, chills, fatigue, headache, nasal congestion, sore throat, shortness of breath, chest pain, palpitations, orthopnea, PND, abdominal pain, n/v/d, constipation, dysuria, hematuria, frequency, back pain, easy bruising or bleeding. Physical Exam Physical Exam: GENERAL: 67 yo morbidly obese WF. NAD NECK: metal trach noted LUNGS: Nonlabored, CTAB CARDIOVASCULAR: Regular rate and rhythm. ABDOMEN: Obese, soft, non-tender and non-distended. BS normoactive x 4 quad. EXTREMITIES: Trace edema. Non-tender. Peripheral pulses +2/4. NEUROLOGIC: A&O x3. Nonfocal PSYCHIATRIC: Cooperative. Appropriate mood and affect. SKIN: Warm, dry, intact. multiple excoriations to RLE but no erythema Results & Data Results & Data ([facility]) Vital Signs (Past 12 Hours) Vital Signs Temp Pulse Pulse Resp BP Pulse Ox O2 Del Method 10/17/22 11:25 76 20 95 Room Air 10/17/22 10:45 Room Air 10/17/22 07:47 68 20 95 Room Air 10/17/22 07:09 36.6 C 69 18 130/72 93 Room Air 10/17/22 06:05 66 118/65 94 PG Care Time/CCT Total # of Minutes Spent Total Time Spent with Patient: Total time spent is greater than 50% in coordination of care (as documented) at patient's floor/unit and/or counseling patient: Coding Level of Care Code 11622 Subseq Hosp Care Lvl 1 Diagnoses SOB (shortness of breath) R06.02 Chronic diastolic congestive heart failure I50.32 Atypical chest pain R07.89 Weakness R53.1 Fracture of distal end of right femur S72.401A Hypothyroidism (acquired) E03.9 CKD stage 4 due to type 2 diabetes mellitus E11.22; N18.4 GERD (gastroesophageal reflux disease) K21.9 Insulin-requiring or dependent type II diabetes mellitus E11.9; Z79.4 Anxiety F41.9 Morbid obesity with BMI of 60.0-69.9, adult E66.01; Z68.44
[2022-10-17] MEDS ORDERED: ACETAMINOPHEN 325 MG TAB PO STA (19:24)
[2022-10-17] MEDS ORDERED: oxyCODONE/ACETAMINOPHEN 5mg/325mg TAB PO STA (20:06)
--- NOTE | 2022-10-17 20:12 | Communication Note ---
Date of Service: October 17, 2022 Notified by patient's RN that she continues to have severe R knee pain. Her history of R distal femoral fracture is noted in this regard. She says this frequently happens with the change in weather. Tylenol has helped some, but really not much. She thinks Voltaren helped before. No new leg swelling. No new numbness or tingling. Exam - skin is dry without erythema or appreciable edema over the medial and lateral aspects of the distal femur. There is some TTP over the medial aspect. No appreciable RLE swelling. Difficulty palpating DP pulse secondary to habitus, though capillary refill is < 1 second. XRs reviewed: "1. No significant change in appearance of a comminuted displaced and angulated fracture of the distal femoral metadiaphysis since radiographs of August 01, 2022. Bony remodeling with callus formation without significant bony bridging of the large fragments. The findings suggest delayed healing." Knee pain - likely secondary to chronic fracture, OA, and sedentary mobility status. No obvious signs of DVT and she is on PPX. Voltaren scheduled once daily in setting of CKD rather than tid/qid. Heat pad order. Given the report of this pain being severe, will opt for a one-time dose of Percocet 5-325. Encouraged discussion with dayteam tomorrow for pain management planning. Will monitor. Resident Activity Tracking Resident Involvement: Resident Care Provided Care Provided: Adult [facility]
[2022-10-17] MEDS: ATORVASTATIN 40 MG TAB PO SCH (21:47)
[2022-10-18] MEDS: HEPARIN SOD 5,000 UNIT/0.5 ML VIAL SQ SCH ×3 (06:06→22:24)
[2022-10-18] MEDS: TORSEMIDE 10 MG TAB PO SCH (06:07)
[2022-10-18] MEDS: PANTOprazole 40 MG TAB PO SCH (06:08)
[2022-10-18] MEDS: LEVOTHYROXINE SODIUM 200 MCG TABLET PO SCH (06:08)
[2022-10-18] MEDS: LEVOTHYROXINE SODIUM 25 MCG TABLET PO SCH (06:08)
[2022-10-18] MEDS: SODIUM CHLOR 7% 4 ML NEB NEB SCH ×2 (08:02→19:27)
[2022-10-18] MEDS: ALBUT/IPRATROP 3MG/0.5MG NEB 3 ML VIAL NEB SCH ×4 (08:13→19:27)
[2022-10-18] MEDS: INSULIN ASPART PER UNIT SC SCH ×4 (08:51→22:17)
[2022-10-18] MEDS: LANTUS PER UNIT CHARGE SQ SCH ×2 (08:52→22:18)
[2022-10-18] MEDS: EMPAGLIFLOZIN 10 MG TAB PO SCH (09:26)
[2022-10-18] MEDS: FOLIC ACID 1 MG TAB PO SCH (09:26)
[2022-10-18] MEDS: buPROPion SR 100 MG TABCR PO SCH ×2 (09:26→22:30)
[2022-10-18] MEDS: TOPIRAMATE 100 MG TAB PO SCH ×2 (09:26→22:29)
[2022-10-18] MEDS: POTASSIUM CHLORIDE CRTAB 20 MEQ TABCR PO SCH (09:26)
[2022-10-18] MEDS: SPIRONOLACTONE 25 MG TAB PO SCH (09:26)
[2022-10-18] MEDS: DOCUSATE SODIUM 100 MG CAP PO SCH ×2 (09:26→22:23)
[2022-10-18] MEDS: ISOSORBIDE MONO EXTENDED REL 30 MG TABCR PO SCH (09:26)
[2022-10-18] MEDS: ASPIRIN 81 MG ECTAB PO SCH (09:26)
[2022-10-18] MEDS: MULTIVITAMIN TAB PO SCH (09:27)
[2022-10-18] MEDS: MAGNESIUM OXIDE 400 MG TAB PO SCH (09:27)
[2022-10-18] MEDS: METOPROLOL TARTRATE 25 MG TAB PO SCH ×2 (09:27→22:28)
[2022-10-18] MEDS: DICLOFENAC SOD 1% GEL 100 GM TUBE EXT SCH (09:30)
[2022-10-18] MEDS: BACITRACIN/POLYMYXIN B SULFATE 90 APPLN/28.4 GM TUBE EXT SCH ×2 (09:31→22:30)
[2022-10-18] MEDS: NYSTATIN POWDER 15GM BTL EXT SCH ×2 (09:31→22:31)
--- NOTE | 2022-10-18 10:43 | Pharmacy Report ---
Pharmacy Glycemic Short Note 2 - Date of Service October 18, 2022 - Glycemic Short BSG Results (Last 24 hours): 10/17/22 10/17/22 10/17/22 12:18 17:12 20:25 POC Glucose 193 H 182 H 148 H 10/18/22 08:17 POC Glucose 172 H OUTPATIENT ANTIDIABETIC REGIMEN: * Lantus 80 units SC BID * Humalog scale * HbA1C = 8.9% (07/25/22) ASSESSMENT: 10/18: * Patient received total of 179 units of insulin yesterday, of which 96 units were basal. * Fasting BSG 171 mg/dL - had previously increased basal dosing 3 days ago so now at steady state, will increase further today ~15% * No change to CF/CR 10/15: * Whit received a total of 150 units of insulin yesterday, 80 units basal + 70 units bolus. BSGs were: 123-432-689-186 mg/dL. * Tightened carb ratio yesterday. * Fasting BSG increased to 171 mg/dL today. Will increase basal by 20%. * No changes to Novolog. 10/13: * Patient's BSGs yesterday were 046-620-635-191 mg/dL. Patient received 137 units of insulin (70 units of basal and 67 units of bolus). * Patient's BSGs today are 167-206 mg/dL. * Fasting above goal range- increase by 10% to 40 units BID * Tighten CR since BSGs trending upwards. 10/12: * Whit received 131 units of insulin yesterday, 60 units basal + 71 units bolus. BSGs were acceptable: 461-536-294-134 mg/dL. * Fasting BSG continues to increase for the second straight day and was 156 mg/dL this AM. Will increase basal by ~15% this morning. * Patient was started on Jardiance for combination of heart failure and type 2 diabetes yesterday. Dose was 25 mg which patient received x 2 now. Recommended reduction to 10 mg daily as these tablets cannot be cut in half and we only have 10 mg tabs on formulary. Provider agreed to reduce dose to 10 mg and discharge with a prescription for 25 mg. Will reduce carb ratio slightly this AM given Jardiance addition. PLAN FOR INPATIENT GLYCEMIC CONTROL: * Jardiance 10 mg PO AM * Basal insulin - increased * Lantus 55 units bid * Bolus insulin * NovoLog per scale ACHS or Q6hrs while NPO * Goal Range: Low 110 mg/dL - High 140 mg/dL * Correction Factor: 10 mg/dL/unit * Nutritional / Prandial insulin per carb ratio of 1 unit per 2.5 grams CHO consumed
--- NOTE | 2022-10-18 13:42 | Hospitalist Progress Note ---
Date of Service October 18, 2022 Assessment & Plan (1) SOB (shortness of breath): Plan: - Acute on Chronic related to COPD, OHS, RASHAAD, CHF - Continue meds - Resume prn Duonebs and inhalers - Ordered mucomyst but patient refused - Reordered Mucinex but pt claims she cannot swallow and they cannot be cut - ordered Guaifenesin 200mg (liq) PO q6 - Requested chest compression device, will utilize BID - Getting hypertonic saline nebs to help with mucus (2) Chronic diastolic congestive heart failure: Plan: - noted 15kg weight gain since 09/09 - echo 2020 EF 55-60% - continue torsemide, spironolactone, metoprolol, isosorbide mononitrate, ASA, atorvastatin - ordered repeat echo--EF 45-50% but otherwise no significant changes from prior exam - ordered daily weights and I/O monitoring, low salt diet - has been treated for a/c diastolic chf exacerbation intermittently with doses of IV Lasix --> appears compensated at this point but still not at dry weight - Now on Torsemide 20mg daily (as opposed to 10mg BID prior to admit) and resumed Spironolactone - Continue Jardiance 10mg daily - Cardiology following, appreciate assistance (3) Atypical chest pain: Plan: - vitals stable on admit, pulse ox 94% room air - Troponin negative x2 - CXR:No acute chest disease. Cardiomegaly is noted. - EKG: unchanged from previous - No further c/o CP and w/u unremarkable - d/c'd tele 10/02, now on med/surg issue has resolved (4) Weakness: Plan: - Related to morbid obesity and chronic R femur fx - PT/OT - Case management for complex dc issues (5) Fracture of distal end of right femur: Plan: - Chronic, NWB to RLE - PT/OT - Pain control -- was previously rx'd OxyIR but evidently this fell off on 10/15 (narcotics are set to fall off at 14 days) - Will prescribe OxyIR 5mg q6h PRN severe pain and pre-PT - Continue APAP as needed for mild to moderate pain (6) Hypothyroidism (acquired): Plan: - Continue Levothyroxine, recent increased from 200mcg daily to 225mcg (7) CKD stage 4 due to type 2 diabetes mellitus: Plan: - Creat has slightly uptrended with diuresis but still within baseline (baseline 1.3-1.8) (8) GERD (gastroesophageal reflux disease): Plan: - Continue protonix (9) Insulin-requiring or dependent type II diabetes mellitus: Plan: - SSI - glargine 80U BID (10) Anxiety: Plan: - Resume home meds (11) Morbid obesity with BMI of 60.0-69.9, adult: Plan: - weight loss advised given that it is the root cause of many of her medical issues Plan Continue PT/OT. Case management consult for complex dc needs. Patient does malinda lify for 90 hours of assistance per week starting Oct 21 of which she would require. She also will need wheelchair access to her home via ramp, as well as widened doorways to accommodate a wheelchair and repair of hole that is reported in the floor of her home for pt to safely be in her home. She would also require chair lift to get her from first floor to second floor. This has also been documented during her previous admission. Pt is refusing to return to [facility] and during her last admission was refusing to outside of the immediate area. Evidently, per CM notes, plan is for her to return home once the ramp is built for wheelchair access into the home but it is not known when this will be completed. Plan d/w Dr. Hampton. Admission and Anticipated Discharge Date Admission Date: October 01, 2022 Supervising Physician Co-Signing Physician Notes Attending Attestation - Chart reviewed, care plan d/w KATIE Shah. I agree w/ the pappas components of her documentation. Gregory Hampton MD Subjective Patient is seen on daily rounds this morning. Today she is upset that she hasn't been receiving her Oxy. She states that "Riccardo (PT) says I have to have it before I work with him." Per RN, she was in an out of her room multiple times throughout the day yesterday with out any complaints of pain. She did receive APAP. This morning, the pt is stating that she "was in so much pain she was crying." Overnight resident did give her a one time dose of Percocet around 8pm. She has no pain currently, denies cp or dyspnea. Review of Systems Review of Systems: All systems reviewed and are unremarkable except as noted in HPI and below. Denies fever, chills, fatigue, headache, nasal congestion, sore throat, shortness of breath, chest pain, palpitations, orthopnea, PND, abdominal pain, n/v/d, constipation, dysuria, hematuria, frequency, back pain, easy bruising or bleeding. Physical Exam Physical Exam: GENERAL: 67 yo morbidly obese WF. NAD NECK: metal trach noted LUNGS: Nonlabored, few isolated end exp wheezes otherwise clear CARDIOVASCULAR: Regular rate and rhythm. ABDOMEN: Obese, soft, non-tender and non-distended. BS normoactive x 4 quad. EXTREMITIES: Trace edema. Non-tender. Peripheral pulses +2/4. NEUROLOGIC: A&O x3. Nonfocal PSYCHIATRIC: Cooperative. Appropriate mood and affect. SKIN: Warm, dry, intact. multiple excoriations to RLE but no erythema Results & Data Results & Data ([facility]) Vital Signs (Past 12 Hours) Vital Signs Temp Pulse Resp BP Pulse Ox O2 Del Method 10/18/22 11:29 85 20 93 Room Air 10/18/22 10:44 Room Air 10/18/22 08:02 86 18 95 Room Air 10/18/22 07:20 36.5 C 73 20 113/71 94 Room Air 10/18/22 06:05 72 118/71 PG Care Time/CCT Total # of Minutes Spent Total Time Spent with Patient: Total time spent is greater than 50% in coordination of care (as documented) at patient's floor/unit and/or counseling patient: Coding Level of Care Code 79156 Subseq Hosp Care Lvl 1 Diagnoses SOB (shortness of breath) R06.02 Chronic diastolic congestive heart failure I50.32 Atypical chest pain R07.89 Weakness R53.1 Fracture of distal end of right femur S72.401A Hypothyroidism (acquired) E03.9 CKD stage 4 due to type 2 diabetes mellitus E11.22; N18.4 GERD (gastroesophageal reflux disease) K21.9 Insulin-requiring or dependent type II diabetes mellitus E11.9; Z79.4 Anxiety F41.9 Morbid obesity with BMI of 60.0-69.9, adult E66.01; Z68.44
[2022-10-18] MEDS: oxyCODONE HCL IR 5 MG TAB (IMMEDIATE RELEASE) PO PRN ×2 (14:31→22:23)
[2022-10-18] MEDS: ATORVASTATIN 40 MG TAB PO SCH (22:29)
[2022-10-19] MEDS: LEVOTHYROXINE SODIUM 25 MCG TABLET PO SCH (05:54)
[2022-10-19] MEDS: LEVOTHYROXINE SODIUM 200 MCG TABLET PO SCH (05:55)
[2022-10-19] MEDS: PANTOprazole 40 MG TAB PO SCH (05:55)
[2022-10-19] MEDS: HEPARIN SOD 5,000 UNIT/0.5 ML VIAL SQ SCH ×3 (05:56→21:57)
[2022-10-19] MEDS: TORSEMIDE 10 MG TAB PO SCH (05:57)
[2022-10-19] MEDS: SODIUM CHLOR 7% 4 ML NEB NEB SCH ×2 (07:07→19:32)
[2022-10-19] MEDS: ALBUT/IPRATROP 3MG/0.5MG NEB 3 ML VIAL NEB SCH ×4 (07:07→20:58)
[2022-10-19] MEDS: LANTUS PER UNIT CHARGE SQ SCH ×2 (09:13→21:52)
[2022-10-19] MEDS: INSULIN ASPART PER UNIT SC SCH ×4 (09:13→21:51)
[2022-10-19] MEDS: METOPROLOL TARTRATE 25 MG TAB PO SCH ×2 (09:15→21:56)
[2022-10-19] MEDS: buPROPion SR 100 MG TABCR PO SCH ×2 (09:16→21:55)
[2022-10-19] MEDS: ASPIRIN 81 MG ECTAB PO SCH (09:16)
[2022-10-19] MEDS: MULTIVITAMIN TAB PO SCH (09:16)
[2022-10-19] MEDS: EMPAGLIFLOZIN 10 MG TAB PO SCH (09:16)
[2022-10-19] MEDS: SPIRONOLACTONE 25 MG TAB PO SCH (09:16)
[2022-10-19] MEDS: FOLIC ACID 1 MG TAB PO SCH (09:16)
[2022-10-19] MEDS: ISOSORBIDE MONO EXTENDED REL 30 MG TABCR PO SCH (09:16)
[2022-10-19] MEDS: MAGNESIUM OXIDE 400 MG TAB PO SCH (09:16)
[2022-10-19] MEDS: TOPIRAMATE 100 MG TAB PO SCH ×2 (09:16→21:56)
[2022-10-19] MEDS: DICLOFENAC SOD 1% GEL 100 GM TUBE EXT SCH (09:17)
[2022-10-19] MEDS: BACITRACIN/POLYMYXIN B SULFATE 90 APPLN/28.4 GM TUBE EXT SCH ×2 (09:17→21:57)
[2022-10-19] MEDS: NYSTATIN POWDER 15GM BTL EXT SCH ×2 (09:18→21:59)
[2022-10-19] MEDS: POTASSIUM CHLORIDE CRTAB 20 MEQ TABCR PO SCH (09:21)
[2022-10-19] MEDS: DOCUSATE SODIUM 100 MG CAP PO SCH ×2 (09:25→21:59)
[2022-10-19] MEDS: oxyCODONE HCL IR 5 MG TAB (IMMEDIATE RELEASE) PO PRN ×3 (09:25→21:53)
--- NOTE | 2022-10-19 09:37 | Pharmacy Report ---
Pharmacy Glycemic Short Note 2 - Date of Service October 19, 2022 - Glycemic Short BSG Results (Last 24 hours): 10/18/22 10/18/22 10/18/22 12:07 17:19 20:46 POC Glucose 186 H 153 H 186 H 10/19/22 08:22 POC Glucose 201 H OUTPATIENT ANTIDIABETIC REGIMEN: * Lantus 80 units SC BID * Humalog scale * HbA1C = 8.9% (07/25/22) ASSESSMENT: 10/19: * BSGs 842-161-089ef/dL. Fasting elevated at 201mg/dL this AM. Received 194 units of insulin yesterday, 110 units of basal. * Tolerating diet, other stressors stable. * Basal increased ~5% today given elevated fasting BSG. No change to Novolog parameters. 10/18: * Patient received total of 179 units of insulin yesterday, of which 96 units were basal. * Fasting BSG 171 mg/dL - had previously increased basal dosing 3 days ago so now at steady state, will increase further today ~15% * No change to CF/CR 10/15: * Whit received a total of 150 units of insulin yesterday, 80 units basal + 70 units bolus. BSGs were: 356-217-193-186 mg/dL. * Tightened carb ratio yesterday. * Fasting BSG increased to 171 mg/dL today. Will increase basal by 20%. * No changes to Novolog. 10/13: * Patient's BSGs yesterday were 242-590-446-191 mg/dL. Patient received 137 units of insulin (70 units of basal and 67 units of bolus). * Patient's BSGs today are 167-206 mg/dL. * Fasting above goal range- increase by 10% to 40 units BID * Tighten CR since BSGs trending upwards. 10/12: * Whit received 131 units of insulin yesterday, 60 units basal + 71 units bolus. BSGs were acceptable: 505-570-356-134 mg/dL. * Fasting BSG continues to increase for the second straight day and was 156 mg/dL this AM. Will increase basal by ~15% this morning. * Patient was started on Jardiance for combination of heart failure and type 2 diabetes yesterday. Dose was 25 mg which patient received x 2 now. Recommended reduction to 10 mg daily as these tablets cannot be cut in half and we only have 10 mg tabs on formulary. Provider agreed to reduce dose to 10 mg and disc harge with a prescription for 25 mg. Will reduce carb ratio slightly this AM given Jardiance addition. PLAN FOR INPATIENT GLYCEMIC CONTROL: * Jardiance 10 mg PO AM * Basal insulin - increased * Lantus 58 units bid * Bolus insulin * NovoLog per scale ACHS or Q6hrs while NPO * Goal Range: Low 110 mg/dL - High 140 mg/dL * Correction Factor: 10 mg/dL/unit * Nutritional / Prandial insulin per carb ratio of 1 unit per 2.5 grams CHO consumed
--- NOTE | 2022-10-19 18:00 | Hospitalist Progress Note ---
Date of Service October 19, 2022 Assessment & Plan (1) SOB (shortness of breath): Plan: - Acute on Chronic related to COPD, OHS, RASHAAD, CHF - Continue meds - Awaiting placement or home situation (2) Chronic diastolic congestive heart failure: Plan: - noted 15kg weight gain since 09/09 - echo 2020 EF 55-60% - continue torsemide, spironolactone, metoprolol, isosorbide mononitrate, ASA, atorvastatin - ordered repeat echo--EF 45-50% but otherwise no significant changes from prior exam - ordered daily weights and I/O monitoring, low salt diet - has been treated for a/c diastolic chf exacerbation intermittently with doses of IV Lasix --> appears compensated at this point but still not at dry weight - Now on Torsemide 20mg daily (as opposed to 10mg BID prior to admit) and resumed Spironolactone - Continue Jardiance 10mg daily - Cardiology following, appreciate assistance (3) Atypical chest pain: Plan: - appears to have been resolved situation issue has resolved (4) Weakness: Plan: - Related to morbid obesity and chronic R femur fx - PT/OT - Case management for complex dc issues (5) Fracture of distal end of right femur: Plan: - Chronic, NWB to RLE - PT/OT - Pain control (6) Hypothyroidism (acquired): Plan: - Continue Levothyroxine, recent increased from 200mcg daily to 225mcg (7) CKD stage 4 due to type 2 diabetes mellitus: Plan: - Creat has slightly uptrended with diuresis but still within baseline (baseline 1.3-1.8) (8) GERD (gastroesophageal reflux disease): Plan: - Continue protonix (9) Insulin-requiring or dependent type II diabetes mellitus: Plan: - SSI - glargine 80U BID - A1c 8.2 in early July, sugars recently have been much more adequate (10) Anxiety: Plan: - Resume home meds (11) Morbid obesity with BMI of 60.0-69.9, adult: Plan: - weight loss has been advised, BMI is actually now down to 59 Plan Continue PT/OT. Case management consult for complex dc needs. Admission and Anticipated Discharge Date Admission Date: October 01, 2022 Subjective He is unsure of the status of getting her home ready. No new complaints. Review of Systems Review of Systems: All systems reviewed & are unremarkable except as noted in HPI & below Physical Exam Physical Exam: In general she is awake and alert pleasant no distress. HEENT normocephalic atraumatic mucous membranes moist. Metal trach in place without surrounding erythema. No dyspnea no respiratory distress no accessory muscle use. No focal neurodeficits. Results & Data Results & Data ([facility]) Vital Signs (Past 12 Hours) Vital Signs Temp Pulse Resp BP Pulse Ox O2 Del Method 10/19/22 15:31 98.2 F 76 18 109/62 95 Room Air 10/19/22 14:23 76 20 98 Room Air 10/19/22 13:23 98.1 F 75 18 115/68 94 Room Air 10/19/22 08:00 Room Air 10/19/22 11:59 98.1 F 82 18 103/64 93 Room Air 10/19/22 11:17 81 18 94 Room Air 10/19/22 07:10 72 18 95 Room Air PG Care Time/CCT Total # of Minutes Spent Total Time Spent with Patient: Total time spent is greater than 50% in coordination of care (as documented) at patient's floor/unit and/or counseling patient: Coding Level of Care Code 81263 Subseq Hosp Care Lvl 1 Diagnoses SOB (shortness of breath) R06.02 Chronic diastolic congestive heart failure I50.32 Atypical chest pain R07.89 Weakness R53.1 Fracture of distal end of right femur S72.401A Hypothyroidism (acquired) E03.9 CKD stage 4 due to type 2 diabetes mellitus E11.22; N18.4 GERD (gastroesophageal reflux disease) K21.9 Insulin-requiring or dependent type II diabetes mellitus E11.9; Z79.4 Anxiety F41.9 Morbid obesity with BMI of 60.0-69.9, adult E66.01; Z68.44
[2022-10-19] MEDS: ATORVASTATIN 40 MG TAB PO SCH (21:56)
[2022-10-20] MEDS: HEPARIN SOD 5,000 UNIT/0.5 ML VIAL SQ SCH ×3 (06:27→22:40)
[2022-10-20] MEDS: TORSEMIDE 10 MG TAB PO SCH (06:30)
[2022-10-20] MEDS: PANTOprazole 40 MG TAB PO SCH (06:30)
[2022-10-20] MEDS: LEVOTHYROXINE SODIUM 25 MCG TABLET PO SCH (06:31)
[2022-10-20] MEDS: LEVOTHYROXINE SODIUM 200 MCG TABLET PO SCH (06:31)
[2022-10-20] MEDS: SODIUM CHLOR 7% 4 ML NEB NEB SCH ×2 (07:46→21:07)
[2022-10-20] MEDS: ALBUT/IPRATROP 3MG/0.5MG NEB 3 ML VIAL NEB SCH ×4 (07:46→19:42)
[2022-10-20] MEDS: LANTUS PER UNIT CHARGE SQ SCH ×2 (09:14→22:33)
[2022-10-20] MEDS: INSULIN ASPART PER UNIT SC SCH ×4 (09:14→22:32)
[2022-10-20] MEDS: BACITRACIN/POLYMYXIN B SULFATE 90 APPLN/28.4 GM TUBE EXT SCH ×2 (09:15→22:34)
[2022-10-20] MEDS: DICLOFENAC SOD 1% GEL 100 GM TUBE EXT SCH (09:15)
[2022-10-20] MEDS: SPIRONOLACTONE 25 MG TAB PO SCH (09:16)
[2022-10-20] MEDS: buPROPion SR 100 MG TABCR PO SCH ×2 (09:16→22:39)
[2022-10-20] MEDS: POTASSIUM CHLORIDE CRTAB 20 MEQ TABCR PO SCH (09:16)
[2022-10-20] MEDS: TOPIRAMATE 100 MG TAB PO SCH ×2 (09:16→22:39)
[2022-10-20] MEDS: METOPROLOL TARTRATE 25 MG TAB PO SCH ×2 (09:16→22:37)
[2022-10-20] MEDS: ISOSORBIDE MONO EXTENDED REL 30 MG TABCR PO SCH (09:16)
[2022-10-20] MEDS: FOLIC ACID 1 MG TAB PO SCH (09:17)
[2022-10-20] MEDS: EMPAGLIFLOZIN 10 MG TAB PO SCH (09:17)
[2022-10-20] MEDS: MAGNESIUM OXIDE 400 MG TAB PO SCH (09:17)
[2022-10-20] MEDS: ASPIRIN 81 MG ECTAB PO SCH (09:17)
[2022-10-20] MEDS: MULTIVITAMIN TAB PO SCH (09:17)
[2022-10-20] MEDS: NYSTATIN POWDER 15GM BTL EXT SCH ×2 (09:22→22:34)
[2022-10-20] MEDS: DOCUSATE SODIUM 100 MG CAP PO SCH ×2 (09:25→22:34)
[2022-10-20] MEDS: oxyCODONE HCL IR 5 MG TAB (IMMEDIATE RELEASE) PO PRN ×2 (10:18→22:34)
--- NOTE | 2022-10-20 11:12 | Pharmacy Report ---
Pharmacy Glycemic Short Note 2 - Date of Service October 20, 2022 - Glycemic Short BSG Results (Last 24 hours): 10/19/22 10/19/22 10/19/22 12:24 17:15 20:41 POC Glucose 184 H 196 H 174 H 10/20/22 08:38 POC Glucose 157 H OUTPATIENT ANTIDIABETIC REGIMEN: * Lantus 80 units SC BID * Humalog scale * HbA1C = 8.9% (07/25/22) ASSESSMENT: 10/20: * BSGs [phone]/dL the last 24h. Fasting 157mg/dL this AM. Received 116 units of basal and 91 units of bolus insulin yesterday. * Tolerating diet- stressors stable * Given slightly elevated fasting BSG, Lantus increased to 60 units BID today. No change to Novolog. 10/19: * BSGs [phone]/dL. Fasting elevated at 201mg/dL this AM. Received 194 units of insulin yesterday, 110 units of basal. * Tolerating diet, other stressors stable. * Basal increased ~5% today given elevated fasting BSG. No change to Novolog parameters. 10/18: * Patient received total of 179 units of insulin yesterday, of which 96 units were basal. * Fasting BSG 171 mg/dL - had previously increased basal dosing 3 days ago so now at steady state, will increase further today ~15% * No change to CF/CR 10/15: * Whit received a total of 150 units of insulin yesterday, 80 units basal + 70 units bolus. BSGs were: [phone] mg/dL. * Tightened carb ratio yesterday. * Fasting BSG increased to 171 mg/dL today. Will increase basal by 20%. * No changes to Novolog. 10/13: * Patient's BSGs yesterday were [phone] mg/dL. Patient received 137 units of insulin (70 units of basal and 67 units of bolus). * Patient's BSGs today are 167-206 mg/dL. * Fasting above goal range- increase by 10% to 40 units BID * Tighten CR since BSGs trending upwards. 10/12: * Whit received 131 units of insulin yesterday, 60 units basal + 71 units bolus. BSGs were acceptable: [phone] mg/dL. * Fasting BSG continues to increase for the second straight day and was 156 mg/dL this AM. Will increase basal by ~15% this morning. * Patient was started on Jardiance for combination of heart failure and type 2 diabetes yesterday. Dose was 25 mg which patient received x 2 now. Recommended reduction to 10 mg daily as these tablets cannot be cut in half and we only have 10 mg tabs on formulary. Provider agreed to reduce dose to 10 mg and discharge with a prescription for 25 mg. Will reduce carb ratio slightly this AM given Jardiance addition. PLAN FOR INPATIENT GLYCEMIC CONTROL: * Jardiance 10 mg PO AM * Basal insulin - increased * Lantus 60 units bid * Bolus insulin * NovoLog per scale ACHS or Q6hrs while NPO * Goal Range: Low 110 mg/dL - High 140 mg/dL * Correction Factor: 10 mg/dL/unit * Nutritional / Prandial insulin per carb ratio of 1 unit per 2.5 grams CHO consumed
--- NOTE | 2022-10-20 17:29 | Hospitalist Progress Note ---
Date of Service October 20, 2022 Assessment & Plan (1) SOB (shortness of breath): Plan: - Acute on Chronic related to COPD, OHS, RASHAAD, CHF - Continue meds - Resume prn Duonebs and inhalers - Ordered mucomyst but patient refused - Reordered Mucinex but pt claims she cannot swallow and they cannot be cut - ordered Guaifenesin 200mg (liq) PO q6 - Requested chest compression device, will utilize BID - Getting hypertonic saline nebs to help with mucus (2) Chronic diastolic congestive heart failure: Plan: - noted 15kg weight gain since 09/09 - echo 2020 EF 55-60% - continue torsemide, spironolactone, metoprolol, isosorbide mononitrate, ASA, atorvastatin - ordered repeat echo--EF 45-50% but otherwise no significant changes from prior exam - ordered daily weights and I/O monitoring, low salt diet - has been treated for a/c diastolic chf exacerbation intermittently with doses of IV Lasix --> appears compensated at this point but still not at dry weight - Now on Torsemide 20mg daily (as opposed to 10mg BID prior to admit) and resumed Spironolactone - Continue Jardiance 10mg daily - Cardiology following, appreciate assistance (3) Atypical chest pain: Plan: - vitals stable on admit, pulse ox 94% room air - Troponin negative x2 - CXR:No acute chest disease. Cardiomegaly is noted. - EKG: unchanged from previous - No further c/o CP and w/u unremarkable - d/c'd tele 10/02, now on med/surg issue has resolved (4) Weakness: Plan: - Related to morbid obesity and chronic R femur fx - PT/OT - Case management for complex dc issues (5) Fracture of distal end of right femur: Plan: - Chronic, NWB to RLE - PT/OT - Pain control -- was previously rx'd OxyIR but evidently this fell off on 10/15 (narcotics are set to fall off at 14 days) - Will prescribe OxyIR 5mg q6h PRN severe pain and pre-PT - Continue APAP as needed for mild to moderate pain (6) Hypothyroidism (acquired): Plan: - Continue Levothyroxine, recent increased from 200mcg daily to 225mcg (7) CKD stage 4 due to type 2 diabetes mellitus: Plan: - Creat has slightly uptrended with diuresis but still within baseline (baseline 1.3-1.8) (8) GERD (gastroesophageal reflux disease): Plan: - Continue protonix (9) Insulin-requiring or dependent type II diabetes mellitus: Plan: - SSI - glargine 80U BID (10) Anxiety: Plan: - Resume home meds (11) Morbid obesity with BMI of 60.0-69.9, adult: Plan: - weight loss advised given that it is the root cause of many of her medical issues Plan Continue PT/OT. Case management consult for complex dc needs. stable for home once set up. declining SNF Admission and Anticipated Discharge Date Admission Date: October 01, 2022 Subjective still no new updates from home situation. no physical complaints Review of Systems Review of Systems: All systems reviewed & are unremarkable except as noted in HPI & below Physical Exam Physical Exam: gen aaox3 pleasant nad heent nc at mmm breathing unlabored no accessory muscles good effort metal trach in place skin no rashes no pallor or icterus Results & Data Results & Data ([facility]) Vital Signs (Past 12 Hours) Vital Signs Temp Pulse Pulse Resp BP Pulse Ox O2 Del Method 10/20/22 15:40 81 20 98 Room Air 10/20/22 14:07 97.9 F 80 16 127/66 92 Room Air 10/20/22 08:15 Room Air 10/20/22 11:13 73 18 95 Room Air 10/20/22 08:07 97.9 F 73 16 118/73 99 Room Air 10/20/22 07:46 72 18 93 Room Air PG Care Time/CCT Total # of Minutes Spent Total Time Spent with Patient: Total time spent is greater than 50% in coordination of care (as documented) at patient's floor/unit and/or counseling patient: Coding Level of Care Code 09313 Subseq Hosp Care Lvl 1 Diagnoses SOB (shortness of breath) R06.02 Chronic diastolic congestive heart failure I50.32 Atypical chest pain R07.89 Weakness R53.1 Fracture of distal end of right femur S72.401A Hypothyroidism (acquired) E03.9 CKD stage 4 due to type 2 diabetes mellitus E11.22; N18.4 GERD (gastroesophageal reflux disease) K21.9 Insulin-requiring or dependent type II diabetes mellitus E11.9; Z79.4 Anxiety F41.9 Morbid obesity with BMI of 60.0-69.9, adult E66.01; Z68.44
[2022-10-20] MEDS: ACETAMINOPHEN 325 MG TAB PO PRN (22:35)
[2022-10-20] MEDS: ATORVASTATIN 40 MG TAB PO SCH (22:37)
[2022-10-21] MEDS: HEPARIN SOD 5,000 UNIT/0.5 ML VIAL SQ SCH ×3 (06:30→21:24)
[2022-10-21] MEDS: LEVOTHYROXINE SODIUM 200 MCG TABLET PO SCH (06:31)
[2022-10-21] MEDS: LEVOTHYROXINE SODIUM 25 MCG TABLET PO SCH (06:31)
[2022-10-21] MEDS: PANTOprazole 40 MG TAB PO SCH (06:31)
[2022-10-21] MEDS: ALBUT/IPRATROP 3MG/0.5MG NEB 3 ML VIAL NEB SCH ×4 (07:49→19:28)
[2022-10-21] MEDS: SODIUM CHLOR 7% 4 ML NEB NEB SCH ×2 (07:50→19:28)
[2022-10-21] MEDS: TORSEMIDE 10 MG TAB PO SCH (08:43)
[2022-10-21] MEDS: MULTIVITAMIN TAB PO SCH (08:44)
[2022-10-21] MEDS: MAGNESIUM OXIDE 400 MG TAB PO SCH (08:44)
[2022-10-21] MEDS: DICLOFENAC SOD 1% GEL 100 GM TUBE EXT SCH (08:44)
[2022-10-21] MEDS: ISOSORBIDE MONO EXTENDED REL 30 MG TABCR PO SCH (08:44)
[2022-10-21] MEDS: METOPROLOL TARTRATE 25 MG TAB PO SCH ×2 (08:45→21:22)
[2022-10-21] MEDS: ASPIRIN 81 MG ECTAB PO SCH (08:45)
[2022-10-21] MEDS: BACITRACIN/POLYMYXIN B SULFATE 90 APPLN/28.4 GM TUBE EXT SCH ×2 (08:46→21:25)
[2022-10-21] MEDS: SPIRONOLACTONE 25 MG TAB PO SCH (08:46)
[2022-10-21] MEDS: POTASSIUM CHLORIDE CRTAB 20 MEQ TABCR PO SCH (08:46)
[2022-10-21] MEDS: buPROPion SR 100 MG TABCR PO SCH ×2 (08:46→21:24)
[2022-10-21] MEDS: EMPAGLIFLOZIN 10 MG TAB PO SCH (08:47)
[2022-10-21] MEDS: NYSTATIN POWDER 15GM BTL EXT SCH ×2 (08:47→21:35)
[2022-10-21] MEDS: FOLIC ACID 1 MG TAB PO SCH (08:47)
[2022-10-21] MEDS: TOPIRAMATE 100 MG TAB PO SCH ×2 (08:47→21:23)
[2022-10-21] MEDS: DOCUSATE SODIUM 100 MG CAP PO SCH ×2 (08:50→21:36)
[2022-10-21] MEDS: INSULIN ASPART PER UNIT SC SCH ×4 (09:08→21:37)
[2022-10-21] MEDS: LANTUS PER UNIT CHARGE SQ SCH ×2 (09:09→21:36)
[2022-10-21] MEDS: ACETAMINOPHEN 325 MG TAB PO PRN ×2 (10:38→21:35)
[2022-10-21] MEDS: oxyCODONE HCL IR 5 MG TAB (IMMEDIATE RELEASE) PO PRN ×2 (10:38→21:36)
--- NOTE | 2022-10-21 16:29 | Hospitalist Progress Note ---
Date of Service October 21, 2022 Assessment & Plan (1) SOB (shortness of breath): Plan: - Acute on Chronic related to COPD, OHS, RASHAAD, CHF - Continue meds - continue prn Duonebs and inhalers - continue Guaifenesin 200mg (liq) PO q6 - continue hypertonic saline nebs to help with mucus (2) Chronic diastolic congestive heart failure: Plan: Acute on chronic HFrEF - noted 15kg weight gain since 09/09 on admission - echo 2020 EF 55-60% - continue torsemide, spironolactone, metoprolol, isosorbide mononitrate, ASA, atorvastatin - ordered repeat echo--EF 45-50% but otherwise no significant changes from prior exam - ordered daily weights and I/O monitoring, low salt diet - has been treated for a/c diastolic chf exacerbation intermittently with doses of IV Lasix --> appears compensated at this point but still not at dry weight - Now on Torsemide 20mg daily (as opposed to 10mg BID prior to admit) and resumed Spironolactone - Continue Jardiance 10mg daily - Cardiology following, appreciate assistance -check BMP periodically (3) Atypical chest pain: Plan: related to acute HFpEF as above - Troponin negative x2 - CXR:No acute chest disease. Cardiomegaly is noted. - EKG: unchanged from previous - No further c/o CP after diuresis - d/c'd tele 10/02, now on med/surg issue has resolved (4) Weakness: Plan: - Related to morbid obesity and chronic R femur fx - PT/OT - Case management for complex dc issues (5) Fracture of distal end of right femur: Plan: - Chronic, NWB to RLE - PT/OT - Pain control -- continue OxyIR prn - Continue APAP as needed for mild to moderate pain (6) Hypothyroidism (acquired): Plan: - Continue Levothyroxine, recent increased from 200mcg daily to 225mcg in mid Oct check TSH in 2 more weeks (7) CKD stage 4 due to type 2 diabetes mellitus: Plan: - Creat has slightly uptrended with diuresis but still within baseline (baseline 1.3-1.8) (8) GERD (gastroesophageal reflux disease): Plan: - Continue protonix (9) Insulin-requiring or dependent type II diabetes mellitus: Plan: continue Lantus and Novolog, high doses last HgbA1C 9.4% in 07/2022-repeat in AM (10) Anxiety: Plan: - continue bupropion, topamax (11) Morbid obesity with BMI of 60.0-69.9, adult: Plan: - weight loss advised given that it is the root cause of many of her medical issues continue topamax Plan Continue PT/OT. Case management consult for complex dc needs. stable for home once set up with home modifications which are ongoing through her insurance. declining SNF Ok to discontinue peripheral IV today at her request Admission and Anticipated Discharge Date Admission Date: October 01, 2022 Subjective No complaints except requesting to have her IV site removed as it is not being used for anything. Denies nausea, is moving bowels. Got OOB to bedside commode and chair today with PT. Denies SOB. Review of Systems Review of Systems: All systems reviewed & are unremarkable except as noted in HPI & below Physical Exam Constitutional: WD/WN, vitals as above Eyes: + anicteric sclerae ENMT: external ear and nose normal, oropharynx normal Neck: trachea midline, no thyromegaly Respiratory: normal respiratory effort, lungs clear to auscultation Cardiovascular: RRR, no murmur, no edema Gastrointestinal (Abdomen): normal bowel sounds, soft, nontender, no hepato splenomegaly Musculoskeletal: Extremities: extremities normal to inspection; no cyanosis and no clubbing Skin: no rashes, warm and dry Neurologic: moves all extremities and awake; no focal motor deficits Psychiatric: A+Ox3, euthymic affect Lymphatic: no lymphedema Results & Data Results & [facility] ([facility]) Vital Signs (Past 12 Hours) Vital Signs Temp Pulse Resp BP Pulse Ox O2 Del Method 10/21/22 15:13 69 20 95 Room Air 10/21/22 12:04 80 18 97 Trach Collar 10/21/22 07:45 Room Air 10/21/22 07:51 82 18 97 Room Air 10/21/22 07:47 36.6 C 69 18 114/64 93 Room Air PG Care Time/CCT Total # of Minutes Spent Total Time Spent with Patient: Total time spent is greater than 50% in coordination of care (as documented) at patient's floor/unit and/or counseling patient: Coding Level of Care Code 38340 Subseq Hosp Care Lvl 2 Diagnoses SOB (shortness of breath) R06.02 Chronic diastolic congestive heart failure I50.32 Atypical chest pain R07.89 Weakness R53.1 Fracture of distal end of right femur S72.401A Hypothyroidism (acquired) E03.9 CKD stage 4 due to type 2 diabetes mellitus E11.22; N18.4 GERD (gastroesophageal reflux disease) K21.9 Insulin-requiring or dependent type II diabetes mellitus E11.9; Z79.4 Anxiety F41.9 Morbid obesity with BMI of 60.0-69.9, adult E66.01; Z68.44
[2022-10-21] MEDS: ATORVASTATIN 40 MG TAB PO SCH (21:23)
[2022-10-22] MEDS: LEVOTHYROXINE SODIUM 200 MCG TABLET PO SCH (05:36)
[2022-10-22] MEDS: HEPARIN SOD 5,000 UNIT/0.5 ML VIAL SQ SCH ×3 (05:36→21:33)
[2022-10-22] MEDS: PANTOprazole 40 MG TAB PO SCH (05:36)
[2022-10-22] MEDS: LEVOTHYROXINE SODIUM 25 MCG TABLET PO SCH (05:36)
[2022-10-22] MEDS: oxyCODONE HCL IR 5 MG TAB (IMMEDIATE RELEASE) PO PRN ×3 (06:18→21:33)
[2022-10-22] MEDS: ACETAMINOPHEN 325 MG TAB PO PRN ×4 (06:18→21:33)
[2022-10-22] MEDS: SODIUM CHLOR 7% 4 ML NEB NEB SCH ×2 (07:50→19:20)
[2022-10-22] MEDS: ALBUT/IPRATROP 3MG/0.5MG NEB 3 ML VIAL NEB SCH ×4 (07:50→19:17)
[2022-10-22] MEDS: LANTUS PER UNIT CHARGE SQ SCH ×2 (09:24→21:32)
[2022-10-22] MEDS: INSULIN ASPART PER UNIT SC SCH ×4 (09:24→21:31)
[2022-10-22] MEDS: BACITRACIN/POLYMYXIN B SULFATE 90 APPLN/28.4 GM TUBE EXT SCH ×2 (09:38→21:34)
[2022-10-22] MEDS: METOPROLOL TARTRATE 25 MG TAB PO SCH ×2 (09:39→21:34)
[2022-10-22] MEDS: ASPIRIN 81 MG ECTAB PO SCH (09:39)
[2022-10-22] MEDS: MAGNESIUM OXIDE 400 MG TAB PO SCH (09:39)
[2022-10-22] MEDS: TOPIRAMATE 100 MG TAB PO SCH ×2 (09:39→21:32)
[2022-10-22] MEDS: POTASSIUM CHLORIDE CRTAB 20 MEQ TABCR PO SCH (09:40)
[2022-10-22] MEDS: FOLIC ACID 1 MG TAB PO SCH (09:40)
[2022-10-22] MEDS: SPIRONOLACTONE 25 MG TAB PO SCH (09:41)
[2022-10-22] MEDS: TORSEMIDE 10 MG TAB PO SCH (09:41)
[2022-10-22] MEDS: buPROPion SR 100 MG TABCR PO SCH ×2 (09:41→21:33)
[2022-10-22] MEDS: ISOSORBIDE MONO EXTENDED REL 30 MG TABCR PO SCH (09:41)
[2022-10-22] MEDS: EMPAGLIFLOZIN 10 MG TAB PO SCH (09:42)
[2022-10-22] MEDS: MULTIVITAMIN TAB PO SCH (09:42)
[2022-10-22] MEDS: NYSTATIN POWDER 15GM BTL EXT SCH ×2 (09:44→21:35)
[2022-10-22] MEDS: DOCUSATE SODIUM 100 MG CAP PO SCH ×2 (09:44→21:36)
[2022-10-22 10:25] LABS: Basophils # (auto) 0.04 K/uL (0-0.2); Basophils % (auto) 0.5 %; Eosinophils % (auto) 3.6 %; Hematocrit (blood only) 38.7 % (34.1-44.9); Hemoglobin 12.1 g/dl (12.0-16.0); Immature Granulocytes # (auto) 0.14 K/uL (0.00-0.02); Immature Granulocytes % (auto) 1.7 %; Lymphocytes % (auto) 17.8 %; Mean Corpuscular Hemoglobin 28.9 pg (25.0-34.0); Mean Corpuscular Hgb Conc 31.3 g/dL (32.0-36.0); Mean Corpuscular Volume 92.6 fL (80.0-100.0); Mean Platelet Volume 9.7 fL (9.4-12.3); Monocytes # (auto) 0.47 K/uL (0.24-0.82); Monocytes % (auto) 5.6 %; Neutrophils # (auto) 5.96 K/uL (1.4-6.5); Neutrophils % (auto) 70.8 %; Platelet Count 247 K/uL (130-400); RDW Coefficient of Variation 14.6 % (11.5-14.5); RDW Standard Deviation 49.6 fL (36.4-46.3); Red Blood Count 4.18 M/uL (3.93-5.22); White Blood Count 8.41 K/ul (4.8-10.8)
[2022-10-22 10:43] LABS: Albumin Globulin Ratio 1.1 (0.9-2); Albumin Level 3.5 gm/dl (3.4-5.0); BUN Creatinine Ratio 16.4 (10-20); Bilirubin,Total 0.5 mg/dl (0.2-1.0); Calcium 9.2 mg/dl (8.5-10.1); Creatinine Clr Calc Pharmacy 48.7 ml/min; Est GFR (African American) 38.8 ml/min; Est GFR (Non-African American) 33.5 ml/min; Globulin 3.2 gm/dl (2.5-4.0); Magnesium 2.1 mg/dl (1.7-2.4); Total Protein 6.7 gm/dl (6.0-8.3)
[2022-10-22 10:52] LABS: Estimated Average Glucose 160 mg/dl; Hemoglobin A1C 7.2 % (4.5-5.6)
[2022-10-22] MEDS: DICLOFENAC SOD 1% GEL 100 GM TUBE EXT PRN (16:00)
--- NOTE | 2022-10-22 17:47 | Hospitalist Progress Note ---
Date of Service October 22, 2022 Assessment & Plan (1) SOB (shortness of breath): Plan: - Acute on Chronic related to COPD, OHS, RASHAAD, CHF-resolved - Continue meds - continue prn Duonebs and inhalers - continue Guaifenesin 200mg (liq) PO q6 -No longer needs hypertonic saline nebs-discontinued, no chest PT needed (2) Chronic diastolic congestive heart failure: Plan: Acute on chronic HFrEF-resolved - noted 15kg weight gain since 09/09 on admission - echo 2020 EF 55-60% - continue torsemide, spironolactone, metoprolol, isosorbide mononitrate, ASA, atorvastatin - ordered repeat echo--EF 45-50% but otherwise no significant changes from prior exam - ordered daily weights and I/O monitoring, okay to discontinue heart healthy diet as patient requests vaughn for breakfast-warned not to eat this daily - has been treated for a/c diastolic chf exacerbation intermittently with doses of IV Lasix --> appears compensated at this point but still not at dry weight - Now on Torsemide 20mg daily (as opposed to 10mg BID prior to admit) and continue spironolactone - Continue Jardiance 10mg daily - Cardiology following, appreciate assistance -check BMP periodically-most recent was on 10/22 and creatinine at baseline of 1.5, potassium normal at 4.0, sodium normal at 138, magnesium normal at 2.1 (3) Atypical chest pain: Plan: related to acute HFpEF as above-resolved - Troponin negative x2 - CXR:No acute chest disease. Cardiomegaly is noted. - EKG: unchanged from previous - No further c/o CP after diuresis - d/c'd tele 10/02, now on med/surg (4) Weakness: Plan: - Related to morbid obesity and chronic R femur fx - PT/OT as often as possible - Case management for complex dc issues (5) Fracture of distal end of right femur: Plan: - Chronic, NWB to RLE - PT/OT - Pain control -- continue OxyIR prn - Continue APAP as needed for mild to moderate pain (6) Hypothyroidism (acquired): Plan: - Continue Levothyroxine, recent increased from 200mcg daily to 225mcg in mid Oct for elevated TSH TSH repeated on 12/2 and is now normal at 1.1 (7) CKD stage 4 due to type 2 diabetes mellitus: Plan: (baseline creatinine 1.3-1.8) Most recent creatinine at baseline at 1.59 -Avoid nephrotoxins -renally dose meds when appropriate -follow BMP periodically (8) GERD (gastroesophageal reflux disease): Plan: - Continue protonix (9) Insulin-requiring or dependent type II diabetes mellitus: Plan: continue Lantus and Novolog, high doses Continue Jardiance last HgbA1C 9.4% in 07/2022-now hemoglobin A1c on 10/22 down to 7.2% (10) Anxiety: Plan: - continue bupropion, topamax (11) Morbid obesity with BMI of 60.0-69.9, adult: Plan: - weight loss advised given that it is the root cause of many of her medical issues continue topamax Plan Continue PT/OT. Case management consult for complex dc needs. stable for home once set up with home modifications which are ongoing through her insurance. declining SNF Admission and Anticipated Discharge Date Admission Date: October 01, 2022 Subjective Patient has no complaints. Feels her breathing is normal. She is requesting vaughn with her breakfast. Review of Systems Review of Systems: All systems reviewed & are unremarkable except as noted in HPI & below Physical Exam Constitutional: WD/WN, vitals as above Eyes: + anicteric sclerae Neck: trachea midline, no thyromegaly Respiratory: normal respiratory effort, lungs clear to auscultation Cardiovascular: RRR, no murmur, no edema Gastrointestinal (Abdomen): normal bowel sounds, soft, nontender, no hepatosp lenomegaly Musculoskeletal: Extremities: extremities normal to inspection; no cyanosis and no clubbing Skin: no rashes, warm and dry Neurologic: moves all extremities and awake; no focal motor deficits Psychiatric: A+Ox3, euthymic affect Lymphatic: no lymphedema Results & Data Results & Data ([facility]) Vital Signs (Past 12 Hours) Vital Signs Temp Pulse Pulse Resp BP Pulse Ox O2 Del Method 10/22/22 15:16 36.7 C 80 18 118/72 96 Room Air 10/22/22 14:59 80 16 96 Room Air 10/22/22 11:41 82 18 96 Room Air 10/22/22 07:51 82 16 96 Room Air 10/22/22 06:51 16 Room Air 10/22/22 06:26 36.6 C 76 22 129/74 95 Room Air Laboratory Results 10/22/22 10/22/22 10/22/22 Range/Units 17:01 12:14 09:59 WBC (4.8-10.8) K/ul RBC (3.93-5.22) M/uL Hgb (12.0-16.0) g/dl Hct (34.1-44.9) % MCV (80.0-100.0) fL MCH (25.0-34.0) pg MCHC (32.0-36.0) g/dL RDW Std Deviation (36.4-46.3) fL RDW Coeff of Amee (11.5-14.5) % Plt Count (130-400) K/uL MPV (9.4-12.3) fL Immature Gran % (Auto) % Neut % (Auto) % Lymph % (Auto) % Waller % (Auto) % Eos % (Auto) % Baso % (Auto) % Neut # (Auto) (1.4-6.5) K/uL Lymph # (Auto) (1.2-3.4) K/uL Waller # (Auto) (0.24-0.82) K/uL Eos # (Auto) (0-0.50) K/uL Baso # (Auto) (0-0.2) K/uL Immature Gran # (Auto) (0.00-0.02) K/uL Sodium (136-145) mmol/L Potassium (3.5-5.1) mmol/L Chloride (98-107) mmol/L Carbon Dioxide (21-32) mmol/L Anion Gap (3-11) BUN (6-23) mg/dl Creatinine (0.6-1.2) mg/dl Est Cr Clr Drug Dosing ml/min Est GFR ( Amer) ml/min Est GFR (Non-Af Amer) ml/min BUN/Creatinine Ratio (10-20) Glucose (70-99(Fasting)) mg/dl POC Glucose 167 H 192 H (70-99) mg/dl Estimat Average Glucose mg/dl Hemoglobin A1c (4.5-5.6) % Calcium (8.5-10.1) mg/dl Magnesium (1.7-2.4) mg/dl Total Bilirubin (0.2-1.0) mg/dl AST (13-39) U/L ALT (7-52) U/L Alkaline Phosphatase (34-104) U/L Total Protein (6.0-8.3) gm/dl Albumin (3.4-5.0) gm/dl Globulin (2.5-4.0) gm/dl Albumin/Globulin Ratio (0.9-2) TSH 1.136 (0.300-4.500) uIu/ml 10/22/22 10/22/22 10/22/22 Range/Units 09:59 09:59 09:59 WBC 8.41 (4.8-10.8) K/ul RBC 4.18 (3.93-5.22) M/uL Hgb 12.1 (12.0-16.0) g/dl Hct 38.7 (34.1-44.9) % MCV 92.6 (80.0-100.0) fL MCH 28.9 (25.0-34.0) pg MCHC 31.3 L (32.0-36.0) g/dL RDW Std Deviation 49.6 H (36.4-46.3) fL RDW Coeff of Amee 14.6 H (11.5-14.5) % Plt Count 247 (130-400) K/uL MPV 9.7 (9.4-12.3) fL Immature Gran % (Auto) 1.7 % Neut % (Auto) 70.8 % Lymph % (Auto) 17.8 % Waller % (Auto) 5.6 % Eos % (Auto) 3.6 % Baso % (Auto) 0.5 % Neut # (Auto) 5.96 (1.4-6.5) K/uL Lymph # (Auto) 1.50 (1.2-3.4) K/uL Waller # (Auto) 0.47 (0.24-0.82) K/uL Eos # (Auto) 0.30 (0-0.50) K/uL Baso # (Auto) 0.04 (0-0.2) K/uL Immature Gran # (Auto) 0.14 H (0.00-0.02) K/uL Sodium 138 (136-145) mmol/L Potassium 4.0 (3.5-5.1) mmol/L Chloride 106 (98-107) mmol/L Carbon Dioxide 25 (21-32) mmol/L Anion Gap 7 (3-11) BUN 26 H (6-23) mg/dl Creatinine 1.59 H (0.6-1.2) mg/dl Est Cr Clr Drug Dosing 48.7 ml/min Est GFR ( Amer) 38.8 ml/min Est GFR (Non-Af Amer) 33.5 ml/min BUN/Creatinine Ratio 16.4 (10-20) Glucose 206 H (70-99(Fasting)) mg/dl POC Glucose (70-99) mg/dl Estimat Average Glucose 160 mg/dl Hemoglobin A1c 7.2 H (4.5-5.6) % Calcium 9.2 (8.5-10.1) mg/dl Magnesium 2.1 (1.7-2.4) mg/dl Total Bilirubin 0.5 (0.2-1.0) mg/dl AST 19 (13-39) U/L ALT 23 (7-52) U/L Alkaline Phosphatase 67 (34-104) U/L Total Protein 6.7 (6.0-8.3) gm/dl Albumin 3.5 (3.4-5.0) gm/dl Globulin 3.2 (2.5-4.0) gm/dl Albumin/Globulin Ratio 1.1 (0.9-2) TSH (0.300-4.500) uIu/ml 10/22/22 10/21/22 Range/Units 08:23 20:48 WBC (4.8-10.8) K/ul RBC (3.93-5.22) M/uL Hgb (12.0-16.0) g/dl Hct (34.1-44.9) % MCV (80.0-100.0) fL MCH (25.0-34.0) pg MCHC (32.0-36.0) g/dL RDW Std Deviation (36.4-46.3) fL RDW Coeff of Amee (11.5-14.5) % Plt Count (130-400) K/uL MPV (9.4-12.3) fL Immature Gran % (Auto) % Neut % (Auto) % Lymph % (Auto) % Waller % (Auto) % Eos % (Auto) % Baso % (Auto) % Neut # (Auto) (1.4-6.5) K/uL Lymph # (Auto) (1.2-3.4) K/uL Waller # (Auto) (0.24-0.82) K/uL Eos # (Auto) (0-0.50) K/uL Baso # (Auto) (0-0.2) K/uL Immature Gran # (Auto) (0.00-0.02) K/uL Sodium (136-145) mmol/L Potassium (3.5-5.1) mmol/L Chloride (98-107) mmol/L Carbon Dioxide (21-32) mmol/L Anion Gap (3-11) BUN (6-23) mg/dl Creatinine (0.6-1.2) mg/dl Est Cr Clr Drug Dosing ml/min Est GFR ( Amer) ml/min Est GFR (Non-Af Amer) ml/min BUN/Creatinine Ratio (10-20) Glucose (70-99(Fasting)) mg/dl POC Glucose 163 H 186 H (70-99) mg/dl Estimat Average Glucose mg/dl Hemoglobin A1c (4.5-5.6) % Calcium (8.5-10.1) mg/dl Magnesium (1.7-2.4) mg/dl Total Bilirubin (0.2-1.0) mg/dl AST (13-39) U/L ALT (7-52) U/L Alkaline Phosphatase (34-104) U/L Total Protein (6.0-8.3) gm/dl Albumin (3.4-5.0) gm/dl Globulin (2.5-4.0) gm/dl Albumin/Globulin Ratio (0.9-2) TSH (0.300-4.500) uIu/ml PG Care Time/CCT Total # of Minutes Spent Total Time Spent with Patient: Total time spent is greater than 50% in coordination of care (as documented) at patient's floor/unit and/or counseling patient: Coding Level of Care Code 25645 Subseq Hosp Care Lvl 1 Diagnoses SOB (shortness of breath) R06.02 Chronic diastolic congestive heart failure I50.32 Atypical chest pain R07.89 Weakness R53.1 Fracture of distal end of right femur S72.401A Hypothyroidism (acquired) E03.9 CKD stage 4 due to type 2 diabetes mellitus E11.22; N18.4 GERD (gastroesophageal reflux disease) K21.9 Insulin-requiring or dependent type II diabetes mellitus E11.9; Z79.4 Anxiety F41.9 Morbid obesity with BMI of 60.0-69.9, adult E66.01; Z68.44
[2022-10-22] MEDS: ATORVASTATIN 40 MG TAB PO SCH (21:32)
[2022-10-23] MEDS: LEVOTHYROXINE SODIUM 25 MCG TABLET PO SCH (06:06)
[2022-10-23] MEDS: TORSEMIDE 10 MG TAB PO SCH (06:06)
[2022-10-23] MEDS: LEVOTHYROXINE SODIUM 200 MCG TABLET PO SCH (06:06)
[2022-10-23] MEDS: HEPARIN SOD 5,000 UNIT/0.5 ML VIAL SQ SCH ×3 (06:07→21:41)
[2022-10-23] MEDS: PANTOprazole 40 MG TAB PO SCH (06:58)
[2022-10-23] MEDS: ALBUT/IPRATROP 3MG/0.5MG NEB 3 ML VIAL NEB SCH ×4 (07:36→19:56)
[2022-10-23] MEDS: ASPIRIN 81 MG ECTAB PO SCH (08:24)
[2022-10-23] MEDS: buPROPion SR 100 MG TABCR PO SCH ×2 (08:25→21:39)
[2022-10-23] MEDS: BACITRACIN/POLYMYXIN B SULFATE 90 APPLN/28.4 GM TUBE EXT SCH ×2 (08:25→21:41)
[2022-10-23] MEDS: METOPROLOL TARTRATE 25 MG TAB PO SCH ×2 (08:26→21:39)
[2022-10-23] MEDS: EMPAGLIFLOZIN 10 MG TAB PO SCH (08:26)
[2022-10-23] MEDS: MAGNESIUM OXIDE 400 MG TAB PO SCH (08:27)
[2022-10-23] MEDS: SPIRONOLACTONE 25 MG TAB PO SCH (08:27)
[2022-10-23] MEDS: TOPIRAMATE 100 MG TAB PO SCH ×2 (08:27→21:40)
[2022-10-23] MEDS: FOLIC ACID 1 MG TAB PO SCH (08:27)
[2022-10-23] MEDS: MULTIVITAMIN TAB PO SCH (08:27)
[2022-10-23] MEDS: POTASSIUM CHLORIDE CRTAB 20 MEQ TABCR PO SCH (08:27)
[2022-10-23] MEDS: NYSTATIN POWDER 15GM BTL EXT SCH ×2 (08:28→21:41)
[2022-10-23] MEDS: ISOSORBIDE MONO EXTENDED REL 30 MG TABCR PO SCH (08:29)
[2022-10-23] MEDS: DOCUSATE SODIUM 100 MG CAP PO SCH ×2 (08:33→22:44)
[2022-10-23] MEDS: INSULIN ASPART PER UNIT SC SCH ×4 (09:27→21:36)
[2022-10-23] MEDS: LANTUS PER UNIT CHARGE SQ SCH ×2 (09:28→21:36)
--- NOTE | 2022-10-23 12:10 | Hospitalist Progress Note ---
Date of Service October 23, 2022 Assessment & Plan (1) SOB (shortness of breath): Plan: - Acute on Chronic related to COPD, OHS, RASHAAD, CHF-resolved - Continue meds - continue prn Duonebs and inhalers - continue Guaifenesin 200mg (liq) PO q6 -No longer needs hypertonic saline nebs-discontinued, no chest PT needed (2) Chronic diastolic congestive heart failure: Plan: Acute on chronic HFrEF-resolved - noted 15kg weight gain since 09/09 on admission - echo 2020 EF 55-60% - continue torsemide, spironolactone, metoprolol, isosorbide mononitrate, ASA, atorvastatin - ordered repeat echo--EF 45-50% but otherwise no significant changes from prior exam - ordered daily weights and I/O monitoring, okay to discontinue heart healthy diet as patient requests vaughn for breakfast-warned not to eat this daily - has been treated for a/c diastolic chf exacerbation intermittently with doses of IV Lasix --> appears compensated at this point but still not at dry weight - Now on Torsemide 20mg daily (as opposed to 10mg BID prior to admit) and continue spironolactone - Continue Jardiance 10mg daily - Cardiology following, appreciate assistance -check BMP periodically-most recent was on 10/22 and creatinine at baseline of 1.5, potassium normal at 4.0, sodium normal at 138, magnesium normal at 2.1 (3) Atypical chest pain: Plan: related to acute HFpEF as above-resolved - Troponin negative x2 - CXR:No acute chest disease. Cardiomegaly is noted. - EKG: unchanged from previous - No further c/o CP after diuresis - d/c'd tele 10/02, now on med/surg (4) Weakness: Plan: - Related to morbid obesity and chronic R femur fx - PT/OT as often as possible - Case management for complex dc issues (5) Fracture of distal end of right femur: Plan: - Chronic, NWB to RLE - PT/OT - Pain control -- continue OxyIR prn - Continue APAP as needed for mild to moderate pain (6) Hypothyroidism (acquired): Plan: - Continue Levothyroxine, recent increased from 200mcg daily to 225mcg in mid Oct for elevated TSH TSH repeated on 12/2 and is now normal at 1.1 (7) CKD stage 4 due to type 2 diabetes mellitus: Plan: (baseline creatinine 1.3-1.8) Most recent creatinine at baseline at 1.59 -Avoid nephrotoxins -renally dose meds when appropriate -follow BMP periodically (8) GERD (gastroesophageal reflux disease): Plan: - Continue protonix (9) Insulin-requiring or dependent type II diabetes mellitus: Plan: continue Lantus and Novolog, high doses Continue Jardiance last HgbA1C 9.4% in 07/2022-now hemoglobin A1c on 10/22 down to 7.2% (10) Anxiety: Plan: - continue bupropion, topamax (11) Morbid obesity with BMI of 60.0-69.9, adult: Plan: - weight loss advised given that it is the root cause of many of her medical issues continue topamax Plan Continue PT/OT. Case management consult for complex dc needs. stable for home once set up with home modifications which are ongoing through her insurance. declining SNF Admission and Anticipated Discharge Date Admission Date: October 01, 2022 Subjective No complaints. Is eating and drinking, got her vaughn this AM which she is happy about. Moving bowels, pain present in right thigh but tolerable. Review of Systems Review of Systems: All systems reviewed & are unremarkable except as noted in HPI & below Physical Exam Constitutional: WD/WN, vitals as above Eyes: + anicteric sclerae Neck: trachea midline, no thyromegaly Respiratory: normal respiratory effort, lungs clear to auscultation Cardiovascular: RRR, no murmur, no edema Gastrointestinal (Abdomen): normal bowel sounds, soft, nontender, no hepatosplenomegaly Musculoskeletal: Extremities: extremities normal to inspection; no cyanosis and no clubbing Skin: no rashes, warm and dry Neurologic: moves all extremities and awake; no focal motor deficits Psychiatric: A+Ox3, euthymic affect Lymphatic: no lymphedema Results & Data Results & Data ([facility]) Vital Signs (Past 12 Hours) Vital Signs Temp Pulse Resp BP Pulse Ox O2 Del Method 10/23/22 11:23 75 18 95 Room Air 10/23/22 07:37 84 18 94 Room Air 10/23/22 07:12 36.6 C 75 18 139/72 96 Room Air PG Care Time/CCT Total # of Minutes Spent Total Time Spent with Patient: Total time spent is greater than 50% in coordination of care (as documented) at patient's floor/unit and/or counseling patient: Coding Level of Care Code 75301 Subseq Hosp Care Lvl 1 Diagnoses SOB (shortness of breath) R06.02 Chronic diastolic congestive heart failure I50.32 Atypical chest pain R07.89 Weakness R53.1 Fracture of distal end of right femur S72.401A Hypothyroidism (acquired) E03.9 CKD stage 4 due to type 2 diabetes mellitus E11.22; N18.4 GERD (gastroesophageal reflux disease) K21.9 Insulin-requiring or dependent type II diabetes mellitus E11.9; Z79.4 Anxiety F41.9 Morbid obesity with BMI of 60.0-69.9, adult E66.01; Z68.44
[2022-10-23] MEDS: ACETAMINOPHEN 325 MG TAB PO PRN ×2 (15:13→21:38)
[2022-10-23] MEDS: oxyCODONE HCL IR 5 MG TAB (IMMEDIATE RELEASE) PO PRN ×2 (15:13→21:38)
[2022-10-23] MEDS: ATORVASTATIN 40 MG TAB PO SCH (21:39)
[2022-10-24] MEDS: LEVOTHYROXINE SODIUM 200 MCG TABLET PO SCH (06:01)
[2022-10-24] MEDS: LEVOTHYROXINE SODIUM 25 MCG TABLET PO SCH (06:02)
[2022-10-24] MEDS: PANTOprazole 40 MG TAB PO SCH (06:02)
[2022-10-24] MEDS: TORSEMIDE 10 MG TAB PO SCH (06:02)
[2022-10-24] MEDS: HEPARIN SOD 5,000 UNIT/0.5 ML VIAL SQ SCH ×3 (06:02→21:09)
[2022-10-24] MEDS: ACETAMINOPHEN 325 MG TAB PO PRN ×2 (06:07→15:53)
[2022-10-24] MEDS: oxyCODONE HCL IR 5 MG TAB (IMMEDIATE RELEASE) PO PRN ×2 (06:07→15:53)
[2022-10-24] MEDS: ALBUT/IPRATROP 3MG/0.5MG NEB 3 ML VIAL NEB SCH ×4 (07:47→19:08)
[2022-10-24] MEDS: LANTUS PER UNIT CHARGE SQ SCH ×2 (09:43→21:20)
[2022-10-24] MEDS: INSULIN ASPART PER UNIT SC SCH ×4 (09:44→21:20)
[2022-10-24] MEDS: SPIRONOLACTONE 25 MG TAB PO SCH (09:45)
[2022-10-24] MEDS: MULTIVITAMIN TAB PO SCH (09:45)
[2022-10-24] MEDS: POTASSIUM CHLORIDE CRTAB 20 MEQ TABCR PO SCH (09:45)
[2022-10-24] MEDS: DOCUSATE SODIUM 100 MG CAP PO SCH ×2 (09:45→21:20)
[2022-10-24] MEDS: ISOSORBIDE MONO EXTENDED REL 30 MG TABCR PO SCH (09:46)
[2022-10-24] MEDS: FOLIC ACID 1 MG TAB PO SCH (09:46)
[2022-10-24] MEDS: METOPROLOL TARTRATE 25 MG TAB PO SCH ×2 (09:46→21:08)
[2022-10-24] MEDS: buPROPion SR 100 MG TABCR PO SCH ×2 (09:46→21:08)
[2022-10-24] MEDS: EMPAGLIFLOZIN 10 MG TAB PO SCH (09:46)
[2022-10-24] MEDS: ASPIRIN 81 MG ECTAB PO SCH (09:47)
[2022-10-24] MEDS: TOPIRAMATE 100 MG TAB PO SCH ×2 (09:47→21:09)
[2022-10-24] MEDS: BACITRACIN/POLYMYXIN B SULFATE 90 APPLN/28.4 GM TUBE EXT SCH ×2 (09:47→21:07)
[2022-10-24] MEDS: MAGNESIUM OXIDE 400 MG TAB PO SCH (09:47)
[2022-10-24] MEDS: NYSTATIN POWDER 15GM BTL EXT SCH ×2 (09:48→21:09)
--- NOTE | 2022-10-24 11:32 | Hospitalist Progress Note ---
Date of Service October 24, 2022 Assessment & Plan (1) SOB (shortness of breath): Plan: - Acute on Chronic related to COPD, OHS, RASHAAD, CHF-resolved - Continue meds - continue prn Duonebs and inhalers - continue Guaifenesin 200mg (liq) PO q6 -No longer needs hypertonic saline nebs-discontinued, no chest PT needed (2) Chronic diastolic congestive heart failure: Plan: Acute on chronic HFrEF-resolved - noted 15kg weight gain since 09/09 on admission - echo 2020 EF 55-60% - continue torsemide, spironolactone, metoprolol, isosorbide mononitrate, ASA, atorvastatin - ordered repeat echo--EF 45-50% but otherwise no significant changes from prior exam - ordered daily weights and I/O monitoring, okay to discontinue heart healthy diet as patient requests vaughn for breakfast-warned not to eat this daily - has been treated for a/c diastolic chf exacerbation intermittently with doses of IV Lasix --> appears compensated at this point but still not at dry weight - Now on Torsemide 20mg daily (as opposed to 10mg BID prior to admit) and continue spironolactone - Continue Jardiance 10mg daily - Cardiology following, appreciate assistance -check BMP periodically-most recent was on 10/22 and creatinine at baseline of 1.5, potassium normal at 4.0, sodium normal at 138, magnesium normal at 2.1 (3) Atypical chest pain: Plan: related to acute HFpEF as above-resolved - Troponin negative x2 - CXR:No acute chest disease. Cardiomegaly is noted. - EKG: unchanged from previous - No further c/o CP after diuresis - d/c'd tele 10/02, now on med/surg (4) Weakness: Plan: - Related to morbid obesity and chronic R femur fx - PT/OT as often as possible - Case management for complex dc issues (5) Fracture of distal end of right femur: Plan: - Chronic, NWB to RLE - PT/OT - Pain control -- continue OxyIR prn - Continue APAP as needed for mild to moderate pain (6) Hypothyroidism (acquired): Plan: - Continue Levothyroxine, recent increased from 200mcg daily to 225mcg in mid Oct for elevated TSH TSH repeated on 12/2 and is now normal at 1.1 (7) CKD stage 4 due to type 2 diabetes mellitus: Plan: (baseline creatinine 1.3-1.8) Most recent creatinine at baseline at 1.59 -Avoid nephrotoxins -renally dose meds when appropriate -follow BMP periodically (8) GERD (gastroesophageal reflux disease): Plan: - Continue protonix (9) Insulin-requiring or dependent type II diabetes mellitus: Plan: continue Lantus and Novolog, high doses Continue Jardiance last HgbA1C 9.4% in 07/2022-now hemoglobin A1c on 10/22 down to 7.2% (10) Anxiety: Plan: - continue bupropion, topamax (11) Morbid obesity with BMI of 60.0-69.9, adult: Plan: - weight loss advised given that it is the root cause of many of her medical issues continue topamax Plan Continue PT/OT. Case management consult for complex dc needs. stable for home once set up with home modifications which are ongoing through her insurance. declining SNF Admission and Anticipated Discharge Date Admission Date: October 01, 2022 Subjective No complaints. Is getting a neb treatment now and about to work with PT Review of Systems Review of Systems: All systems reviewed & are unremarkable except as noted in HPI & below Physical Exam Constitutional: WD/WN, vitals as above Eyes: + anicteric sclerae Neck: trachea midline, no thyromegaly Respiratory: normal respiratory effort Auscultation: + wheezes (a few exp wheezes bilat) Cardiovascular: RRR, no murmur, no edema Gastrointestinal (Abdomen): normal bowel sounds, soft, nontender, no hepatosplenomegaly Musculoskeletal: Extremities: extremities normal to inspection; no cyanosis and no clubbing Skin: no rashes, warm and dry Neurologic: moves all extremities and awake; no focal motor deficits Psychiatric: A+Ox3, euthymic affect Lymphatic: no lymphedema Results & Data Results & Data ([facility]) Vital Signs (Past 12 Hours) Vital Signs Temp Pulse Resp BP Pulse Ox O2 Del Method 10/24/22 11:22 77 18 95 Room Air 10/24/22 07:48 77 18 95 Room Air 10/24/22 07:17 36.5 C 72 18 121/67 95 Room Air PG Care Time/CCT Total # of Minutes Spent Total Time Spent with Patient: Total time spent is greater than 50% in coordination of care (as documented) at patient's floor/unit and/or counseling patient: Coding Level of Care Code 08005 Subseq Hosp Care Lvl 1 Diagnoses SOB (shortness of breath) R06.02 Chronic diastolic congestive heart failure I50.32 Atypical chest pain R07.89 Weakness R53.1 Fracture of distal end of right femur S72.401A Hypothyroidism (acquired) E03.9 CKD stage 4 due to type 2 diabetes mellitus E11.22; N18.4 GERD (gastroesophageal reflux disease) K21.9 Insulin-requiring or dependent type II diabetes mellitus E11.9; Z79.4 Anxiety F41.9 Morbid obesity with BMI of 60.0-69.9, adult E66.01; Z68.44
[2022-10-24] MEDS: ATORVASTATIN 40 MG TAB PO SCH (21:07)
[2022-10-24] MEDS: DICLOFENAC SOD 1% GEL 100 GM TUBE EXT PRN (21:27)
[2022-10-25] MEDS: TORSEMIDE 20 MG TAB PO SCH (06:00)
[2022-10-25] MEDS: LEVOTHYROXINE SODIUM 200 MCG TABLET PO SCH (06:00)
[2022-10-25] MEDS: LEVOTHYROXINE SODIUM 25 MCG TABLET PO SCH (06:00)
[2022-10-25] MEDS: PANTOprazole 40 MG TAB PO SCH (06:00)
[2022-10-25] MEDS: HEPARIN SOD 5,000 UNIT/0.5 ML VIAL SQ SCH ×3 (06:02→20:56)
[2022-10-25] MEDS: ALBUT/IPRATROP 3MG/0.5MG NEB 3 ML VIAL NEB SCH ×4 (07:42→19:29)
[2022-10-25] MEDS: DICLOFENAC SOD 1% GEL 100 GM TUBE EXT PRN ×2 (09:13→21:07)
[2022-10-25] MEDS: ISOSORBIDE MONO EXTENDED REL 30 MG TABCR PO SCH (09:14)
[2022-10-25] MEDS: buPROPion SR 100 MG TABCR PO SCH ×2 (09:14→20:54)
[2022-10-25] MEDS: TOPIRAMATE 100 MG TAB PO SCH ×2 (09:14→20:53)
[2022-10-25] MEDS: METOPROLOL TARTRATE 25 MG TAB PO SCH ×2 (09:14→20:54)
[2022-10-25] MEDS: SPIRONOLACTONE 25 MG TAB PO SCH (09:14)
[2022-10-25] MEDS: POTASSIUM CHLORIDE CRTAB 20 MEQ TABCR PO SCH (09:14)
[2022-10-25] MEDS: ASPIRIN 81 MG ECTAB PO SCH (09:14)
[2022-10-25] MEDS: FOLIC ACID 1 MG TAB PO SCH (09:15)
[2022-10-25] MEDS: EMPAGLIFLOZIN 10 MG TAB PO SCH (09:15)
[2022-10-25] MEDS: LANTUS PER UNIT CHARGE SQ SCH ×2 (09:15→20:58)
[2022-10-25] MEDS: DOCUSATE SODIUM 100 MG CAP PO SCH ×2 (09:15→20:59)
[2022-10-25] MEDS: MULTIVITAMIN TAB PO SCH (09:15)
[2022-10-25] MEDS: BACITRACIN/POLYMYXIN B SULFATE 90 APPLN/28.4 GM TUBE EXT SCH ×2 (09:15→20:53)
[2022-10-25] MEDS: MAGNESIUM OXIDE 400 MG TAB PO SCH (09:15)
[2022-10-25] MEDS: NYSTATIN POWDER 15GM BTL EXT SCH ×2 (09:17→20:56)
[2022-10-25] MEDS: INSULIN ASPART PER UNIT SC SCH ×4 (09:19→20:58)
[2022-10-25] MEDS: oxyCODONE HCL IR 5 MG TAB (IMMEDIATE RELEASE) PO PRN ×2 (10:54→23:03)
[2022-10-25] MEDS: ATORVASTATIN 40 MG TAB PO SCH (20:53)
--- NOTE | 2022-10-25 21:58 | Hospitalist Progress Note ---
Date of Service October 25, 2022 Assessment & Plan (1) SOB (shortness of breath): Plan: - Acute on Chronic related to COPD, OHS, RASHAAD, CHF-resolved - continue prn Duonebs and inhalers - continue Guaifenesin 200mg (liq) PO q6 -No longer needs hypertonic saline nebs-discontinued, no chest PT needed (2) Chronic diastolic congestive heart failure: Plan: Acute on chronic HFrEF-resolved - noted 15kg weight gain since 09/09 on admission - echo 2020 EF 55-60% - continue torsemide, spironolactone, metoprolol, isosorbide mononitrate, ASA, atorvastatin - ordered repeat echo--EF 45-50% but otherwise no significant changes from prior exam - ordered daily weights and I/O monitoring, okay to discontinue heart healthy diet as patient requests vaughn for breakfast-warned not to eat this daily - has been treated for a/c diastolic chf exacerbation intermittently with doses of IV Lasix --> appears compensated at this point but still not at dry weight - Now on Torsemide 20mg daily (as opposed to 10mg BID prior to admit) and continue spironolactone - Continue Jardiance 10mg daily - Cardiology following, appreciate assistance -check BMP periodically-most recent was on 10/22 and creatinine at baseline of 1.5, potassium normal at 4.0, sodium normal at 138, magnesium normal at 2.1 (3) Atypical chest pain: Plan: related to acute HFpEF as above-resolved - Troponin negative x2 - CXR:No acute chest disease. Cardiomegaly is noted. - EKG: unchanged from previous - No further c/o CP after diuresis - d/c'd tele 10/02, now on med/surg (4) Weakness: Plan: - Related to morbid obesity and chronic R femur fx - PT/OT as often as possible - Case management for complex dc issues (5) Fracture of distal end of right femur: Plan: - Chronic, NWB to RLE - PT/OT - Pain control -- continue OxyIR prn - Continue APAP as needed for mild to moderate pain (6) Hypothyroidism (acquired): Plan: - Continue Levothyroxine, recent increased from 200mcg daily to 225mcg in mid Oct for elevated TSH TSH repeated on 10/22 and is now normal at 1.1 (7) CKD stage 4 due to type 2 diabetes mellitus: Plan: (baseline creatinine 1.3-1.8) Most recent creatinine at baseline at 1.59 -Avoid nephrotoxins -renally dose meds when appropriate -follow BMP periodically (8) GERD (gastroesophageal reflux disease): Plan: - Continue protonix (9) Insulin-requiring or dependent type II diabetes mellitus: Plan: continue Lantus and Novolog, high doses Continue Jardiance last HgbA1C 9.4% in 07/2022-now hemoglobin A1c on 10/22 down to 7.2% (10) Anxiety: Plan: - continue bupropion, topamax (11) Morbid obesity with BMI of 60.0-69.9, adult: Plan: - weight loss advised given that it is the root cause of many of her medical issues continue topamax Plan Continue PT/OT. Case management consult for complex dc needs. stable for home once set up with home modifications to her home are done which are ongoing through her insurance. She is declining SNF Admission and Anticipated Discharge Date Admission Date: October 01, 2022 Subjective Has no complaints. Is hoping to be home in time to get [employer] cards done for [employer]. Review of Systems Review of Systems: All systems reviewed & are unremarkable except as noted in HPI & below Physical Exam Constitutional: WD/WN, vitals as above Eyes: + anicteric sclerae Neck: trachea midline, no thyromegaly Respiratory: normal respiratory effort Auscultation: + wheezes (a few exp wheezes bilat) Cardiovascular: RRR, no murmur, no edema Gastrointestinal (Abdomen): normal bowel sounds, soft, nontender, no hepatosplenomegaly Musculoskeletal: Extremities: extremities normal to inspection; no cyanosis and no clubbing Skin: no rashes, warm and dry Neurologic: moves all extremities and awake; no focal motor deficits Psychiatric: A+Ox3, euthymic affect Lymphatic: no lymphedema Results & Data Results & Data ([facility]) Vital Signs (Past 12 Hours) Vital Signs Temp Pulse Pulse Resp BP Pulse Ox O2 Del Method 10/25/22 20:49 87 18 137/70 92 Room Air 10/25/22 19:30 83 20 92 Room Air 10/25/22 15:25 78 18 94 Room Air 10/25/22 14:58 95 Room Air 10/25/22 14:36 36.7 C 78 16 102/65 93 Room Air 10/25/22 11:01 78 18 93 Room Air PG Care Time/CCT Total # of Minutes Spent Total Time Spent with Patient: Total time spent is greater than 50% in coordination of care (as documented) at patient's floor/unit and/or counseling patient: Coding Level of Care Code 55447 Subseq Hosp Care Lvl 1 Diagnoses SOB (shortness of breath) R06.02 Chronic diastolic congestive heart failure I50.32 Atypical chest pain R07.89 Weakness R53.1 Fracture of distal end of right femur S72.401A Hypothyroidism (acquired) E03.9 CKD stage 4 due to type 2 diabetes mellitus E11.22; N18.4 GERD (gastroesophageal reflux disease) K21.9 Insulin-requiring or dependent type II diabetes mellitus E11.9; Z79.4 Anxiety F41.9 Morbid obesity with BMI of 60.0-69.9, adult E66.01; Z68.44
[2022-10-26] MEDS: LEVOTHYROXINE SODIUM 25 MCG TABLET PO SCH (05:58)
[2022-10-26] MEDS: HEPARIN SOD 5,000 UNIT/0.5 ML VIAL SQ SCH ×3 (05:58→21:10)
[2022-10-26] MEDS: LEVOTHYROXINE SODIUM 200 MCG TABLET PO SCH (05:58)
[2022-10-26] MEDS: PANTOprazole 40 MG TAB PO SCH (05:58)
[2022-10-26] MEDS: EMPAGLIFLOZIN 10 MG TAB PO SCH (07:47)
[2022-10-26] MEDS: POTASSIUM CHLORIDE CRTAB 20 MEQ TABCR PO SCH (07:47)
[2022-10-26] MEDS: ISOSORBIDE MONO EXTENDED REL 30 MG TABCR PO SCH (07:48)
[2022-10-26] MEDS: TOPIRAMATE 100 MG TAB PO SCH ×2 (07:48→21:09)
[2022-10-26] MEDS: METOPROLOL TARTRATE 25 MG TAB PO SCH ×2 (07:48→21:08)
[2022-10-26] MEDS: MAGNESIUM OXIDE 400 MG TAB PO SCH (07:49)
[2022-10-26] MEDS: SPIRONOLACTONE 25 MG TAB PO SCH (07:49)
[2022-10-26] MEDS: ASPIRIN 81 MG ECTAB PO SCH (07:49)
[2022-10-26] MEDS: FOLIC ACID 1 MG TAB PO SCH (07:49)
[2022-10-26] MEDS: buPROPion SR 100 MG TABCR PO SCH ×2 (07:50→21:09)
[2022-10-26] MEDS: MULTIVITAMIN TAB PO SCH (07:50)
[2022-10-26] MEDS: TORSEMIDE 20 MG TAB PO SCH (07:50)
[2022-10-26] MEDS: DOCUSATE SODIUM 100 MG CAP PO SCH ×2 (07:51→21:20)
[2022-10-26] MEDS: BACITRACIN/POLYMYXIN B SULFATE 90 APPLN/28.4 GM TUBE EXT SCH ×2 (07:53→21:11)
[2022-10-26] MEDS: NYSTATIN POWDER 15GM BTL EXT SCH ×2 (07:53→21:11)
[2022-10-26] MEDS: DICLOFENAC SOD 1% GEL 100 GM TUBE EXT PRN (07:53)
[2022-10-26] MEDS: ALBUT/IPRATROP 3MG/0.5MG NEB 3 ML VIAL NEB SCH ×4 (07:56→19:01)
[2022-10-26] MEDS: LANTUS PER UNIT CHARGE SQ SCH ×2 (09:05→21:20)
[2022-10-26] MEDS: INSULIN ASPART PER UNIT SC SCH ×4 (09:05→21:20)
[2022-10-26] MEDS: oxyCODONE HCL IR 5 MG TAB (IMMEDIATE RELEASE) PO PRN (10:28)
[2022-10-26] MEDS ORDERED: COVID19 BIVALENT Vaccine (Booster ONLY--Pfizer) 30mcg/0.3mL IM ONE (10:30)
--- NOTE | 2022-10-26 12:34 | Hospitalist Progress Note ---
Date of Service October 26, 2022 Assessment & Plan (1) SOB (shortness of breath): Plan: - Acute on Chronic related to COPD, OHS, RASHAAD, CHF-resolved - continue prn Duonebs and inhalers - continue Guaifenesin 200mg (liq) PO q6 -No longer needs hypertonic saline nebs-discontinued, no chest PT needed (2) Chronic diastolic congestive heart failure: Plan: Acute on chronic HFrEF-resolved - noted 15kg weight gain since 09/09 on admission--> weight down somewhat now after received some IV diuresis early on, but not back to baseline weight - echo 2020 EF 55-60%, repeat echo here--EF 45-50% but otherwise no significant changes from prior exam - continue torsemide 20 mg daily and add on a prn dose in the afternoon--> she declines to take extra afternoon dose in the hospital due to difficulty getting to the bathroom quickly. She says she'll take the extra dose when she gets home -continue spironolactone, metoprolol, isosorbide mononitrate, ASA, atorvastatin - ordered daily weights and I/O monitoring, okay to discontinue heart healthy diet as patient requests vaughn for breakfast-warned not to eat this daily - has been treated for a/c diastolic chf exacerbation intermittently with doses of IV Lasix --> appears compensated at this point but still not at dry weight - Continue Jardiance 10mg daily -check BMP periodically-most recent was on 10/22 and creatinine at baseline of 1.5, potassium normal at 4.0, sodium normal at 138, magnesium normal at 2.1 (3) Atypical chest pain: Plan: related to acute HFpEF as above-resolved - Troponin negative x2 - CXR:No acute chest disease. Cardiomegaly is noted. - EKG: unchanged from previous - No further c/o CP after diuresis - d/c'd tele 10/02, now on med/surg (4) Weakness: Plan: - Related to morbid obesity and chronic R femur fx - PT/OT as often as possible - Case management for complex dc issues (5) Fracture of distal end of right femur: Plan: - Chronic, NWB to RLE - PT/OT - Pain control -- continue OxyIR prn - Continue APAP as needed for mild to moderate pain (6) Hypothyroidism (acquired): Plan: - Continue Levothyroxine, recent increased from 200mcg daily to 225mcg in mid Oct for elevated TSH TSH repeated on 10/22 and is now normal at 1.1 (7) CKD stage 4 due to type 2 diabetes mellitus: Plan: (baseline creatinine 1.3-1.8) Most recent creatinine at baseline at 1.59 -Avoid nephrotoxins -renally dose meds when appropriate -follow BMP periodically (8) GERD (gastroesophageal reflux disease): Plan: - Continue protonix (9) Insulin-requiring or dependent type II diabetes mellitus: Plan: continue Lantus and Novolog, high doses Continue Jardiance last HgbA1C 9.4% in 07/2022-now hemoglobin A1c on 10/22 down to 7.2% SHe has an insulin pump at home but has not used it since March 2022 when she first went into the hospital, SHe is interested in restarting this upon return to home. She will have her daughter bring in her pump from home and I have asked Glycemic control Pharmacist and in turn, the Semiconductor Assembler to assist with getting her pump settings appropriate and functioning prior to discharge -f/u with Endocrine after discharge (10) Anxiety: Plan: - continue bupropion -her topamax dose is suppoed to be 100mg qAM and 200mg qHS but somehow has been at 100mg bid -pt requests increase back to her previous dose of 100mg/200mg (11) Morbid obesity with BMI of 60.0-69.9, adult: Plan: - weight loss advised given that it is the root cause of many of her medical issues continue topamax Plan Continue PT/OT. Case management consult for complex dc needs. stable for home once set up with home modifications to her home are done which are ongoing through her insurance. She is declining SNF. If her caregivers that are being arranged are available prior to home modifications being done, she can return home. She is agreeable to this. Flu shot ordered and COVID booster ordered on 10/26 at her request Admission and Anticipated Discharge Date Admission Date: October 01, 2022 Subjective Pt anxious to get home in near future. Asks about getting a flu shot and also agreeable to COVID booster. Discussed increasing her diuretic to get her weight back to baseline but she wants to hold off on this until she gets home as she doesn't want to have urinary urgency and not have a private caregiver that can help her get to the tpoilet quickly. She does have insulin pump at home but hasn't used it since March 2022 Discussed her care with Glycemic Pharmacist. Review of Systems Review of Systems: All systems reviewed & are unremarkable except as noted in HPI & below Physical Exam Constitutional: WD/WN, vitals as above Eyes: + anicteric sclerae Neck: trachea midline, no thyromegaly Respiratory: normal respiratory effort Auscultation: + wheezes (a few exp w heezes bilat) Cardiovascular: RRR, no murmur, no edema Gastrointestinal (Abdomen): normal bowel sounds, soft, nontender, no hepatosplenomegaly Musculoskeletal: Extremities: extremities normal to inspection; no cyanosis and no clubbing Skin: no rashes, warm and dry Neurologic: moves all extremities and awake; no focal motor deficits Psychiatric: A+Ox3, euthymic affect Results & Data Results & Data ([facility]) Vital Signs (Past 12 Hours) Vital Signs Temp Pulse Pulse Resp BP Pulse Ox O2 Del Method 10/26/22 11:52 76 18 96 Room Air 10/26/22 07:56 79 18 94 Room Air 10/26/22 07:07 36.8 C 75 20 150/66 H 94 Room Air PG Care Time/CCT Total # of Minutes Spent Total Time Spent with Patient: Total time spent is greater than 50% in coordination of care (as documented) at patient's floor/unit and/or counseling patient: Coding Level of Care Code 81060 Subseq Hosp Care Lvl 2 Diagnoses SOB (shortness of breath) R06.02 Chronic diastolic congestive heart failure I50.32 Atypical chest pain R07.89 Weakness R53.1 Fracture of distal end of right femur S72.401A Hypothyroidism (acquired) E03.9 CKD stage 4 due to type 2 diabetes mellitus E11.22; N18.4 GERD (gastroesophageal reflux disease) K21.9 Insulin-requiring or dependent type II diabetes mellitus E11.9; Z79.4 Anxiety F41.9 Morbid obesity with BMI of 60.0-69.9, adult E66.01; Z68.44
--- NOTE | 2022-10-26 13:15 | Pharmacy Report ---
Pharmacy Glycemic Short Note 2 - Date of Service October 26, 2022 - Glycemic Short BSG Results (Last 24 hours): 10/25/22 10/25/22 10/26/22 17:00 20:35 08:10 POC Glucose 156 H 150 H 180 H 10/26/22 12:14 POC Glucose 151 H OUTPATIENT ANTIDIABETIC REGIMEN: * Lantus 80 units SC BID * Humalog scale * HbA1C = 8.9% (07/25/22) ASSESSMENT: * Ms Connelly has been requiring ~180 units of insulin per day, with stable glycemic control for the past few days. She is also receiving Jardiance 10mg daily. * Pt would like to go back to using her insulin pump after discharge. RN has spoken with patient, and she will arrange for her daughter to bring her pump supplies into the hospital prior to discharge. * Ideally, we will be able to make this transition prior to discharge to ensure that pump is working adequately/safely prior to return home. * CDE has also been consulted to assist with transition. PLAN FOR INPATIENT GLYCEMIC CONTROL: * Jardiance 10 mg PO AM * Basal insulin - * Lantus 70 units SQ BID * Bolus insulin * NovoLog per scale ACHS or Q6hrs while NPO * Goal Range: Low 110 mg/dL - High 140 mg/dL * Correction Factor: 5 mg/dL/unit * Nutritional / Prandial insulin per carb ratio of 1 unit per 1.5 grams CHO consumed
[2022-10-26] MEDS: ATORVASTATIN 40 MG TAB PO SCH (21:09)
[2022-10-27] MEDS: HEPARIN SOD 5,000 UNIT/0.5 ML VIAL SQ SCH ×3 (05:09→20:37)
[2022-10-27] MEDS: LEVOTHYROXINE SODIUM 25 MCG TABLET PO SCH (05:09)
[2022-10-27] MEDS: LEVOTHYROXINE SODIUM 200 MCG TABLET PO SCH (05:09)
[2022-10-27] MEDS: TORSEMIDE 20 MG TAB PO SCH (05:09)
[2022-10-27] MEDS: PANTOprazole 40 MG TAB PO SCH (05:09)
[2022-10-27] MEDS: ALBUT/IPRATROP 3MG/0.5MG NEB 3 ML VIAL NEB SCH ×4 (07:52→19:56)
[2022-10-27] MEDS: METOPROLOL TARTRATE 25 MG TAB PO SCH ×2 (08:08→20:36)
[2022-10-27] MEDS: ISOSORBIDE MONO EXTENDED REL 30 MG TABCR PO SCH (08:08)
[2022-10-27] MEDS: MULTIVITAMIN TAB PO SCH (08:09)
[2022-10-27] MEDS: buPROPion SR 100 MG TABCR PO SCH ×2 (08:09→20:35)
[2022-10-27] MEDS: FOLIC ACID 1 MG TAB PO SCH (08:09)
[2022-10-27] MEDS: ASPIRIN 81 MG ECTAB PO SCH (08:09)
[2022-10-27] MEDS: SPIRONOLACTONE 25 MG TAB PO SCH (08:09)
[2022-10-27] MEDS: TORSEMIDE 10 MG TAB PO PRN (08:09)
[2022-10-27] MEDS: MAGNESIUM OXIDE 400 MG TAB PO SCH (08:09)
[2022-10-27] MEDS: POTASSIUM CHLORIDE CRTAB 20 MEQ TABCR PO SCH (08:09)
[2022-10-27] MEDS: NYSTATIN POWDER 15GM BTL EXT SCH ×2 (08:10→20:37)
[2022-10-27] MEDS: DOCUSATE SODIUM 100 MG CAP PO SCH ×2 (08:10→20:44)
[2022-10-27] MEDS: AZITHROMYCIN 250 MG TAB PO SCH (08:10)
[2022-10-27] MEDS: TOPIRAMATE 100 MG TAB PO SCH ×2 (08:10→20:34)
[2022-10-27] MEDS: EMPAGLIFLOZIN 10 MG TAB PO SCH (08:11)
[2022-10-27] MEDS: BACITRACIN/POLYMYXIN B SULFATE 90 APPLN/28.4 GM TUBE EXT SCH ×2 (08:11→20:36)
--- NOTE | 2022-10-27 08:40 | Hospitalist Progress Note ---
Date of Service October 27, 2022 Assessment & Plan (1) SOB (shortness of breath): Plan: - Acute on Chronic related to COPD, OHS, RASHAAD, CHF-resolved - continue prn Duonebs and inhalers - continue Guaifenesin 200mg (liq) PO q6 -No longer needs hypertonic saline nebs-discontinued, no chest PT needed (2) Chronic diastolic congestive heart failure: Plan: Acute on chronic HFrEF-resolved - noted 15kg weight gain since 09/09 on admission--> weight down somewhat now after received some IV diuresis early on, but not back to baseline weight - echo 2020 EF 55-60%, repeat echo here--EF 45-50% but otherwise no significant changes from prior exam - continue torsemide 20 mg daily and add on a prn dose in the afternoon--> she declines to take extra afternoon dose in the hospital due to difficulty getting to the bathroom quickly. She says she'll take the extra dose when she gets home -continue spironolactone, metoprolol, isosorbide mononitrate, ASA, atorvastatin - ordered daily weights and I/O monitoring, okay to discontinue heart healthy diet as patient requests vaughn for breakfast-warned not to eat this daily - has been treated for a/c diastolic chf exacerbation intermittently with doses of IV Lasix --> appears compensated at this point but still not at dry weight - Continue Jardiance 10mg daily -check BMP periodically- (3) Atypical chest pain: Plan: related to acute HFpEF as above-resolved - Troponin negative x2 - CXR:No acute chest disease. Cardiomegaly is noted. - EKG: unchanged from previous - No further c/o CP after diuresis - d/c'd tele 10/02, now on med/surg (4) Weakness: Plan: - Related to morbid obesity and chronic R femur fx with nonunion - PT/OT as often as possible - Case management for complex dc issues (5) Fracture of distal end of right femur: Plan: - Chronic, NWB to RLE - PT/OT - Pain control -- continue OxyIR prn - Continue APAP as needed for mild to moderate pain (6) Hypothyroidism (acquired): Plan: - Continue Levothyroxine, recent increased from 200mcg daily to 225mcg in mid Aug for elevated TSH TSH repeated on 10/22 and is now normal at 1.1 (7) CKD stage 4 due to type 2 diabetes mellitus: Plan: (baseline creatinine 1.3-1.8) Most recent creatinine at baseline at 1.59 -Avoid nephrotoxins -renally dose meds when appropriate -follow BMP periodically (8) GERD (gastroesophageal reflux disease): Plan: - Continue protonix (9) Insulin-requiring or dependent type II diabetes mellitus: Plan: continue Lantus and Novolog, high doses Continue Jardiance last HgbA1C 9.4% in 07/2022-now hemoglobin A1c on 10/22 down to 7.2% SHe has an insulin pump at home but has not used it since March 2022 when she first went into the hospital, SHe is interested in restarting this upon return to home. She will have her daughter bring in her pump from home and I have asked Glycemic control Pharmacist and in turn, the Medical Insurance Verifier to assist with getting her pump settings appropriate and functioning prior to discharge -f/u with Endocrine after discharge (10) Anxiety: Plan: - continue bupropion -her topamax dose is suppoed to be 100mg qAM and 200mg qHS but somehow has been at 100mg bid -pt requests increase back to her previous dose of 100mg/200mg (11) Morbid obesity with BMI of 60.0-69.9, adult: Plan: - weight loss advised given that it is the root cause of many of her medical issues continue topamax Plan Continue PT/OT. Case management consult for complex dc needs. stable for home once set up with home modifications to her home are done which are ongoing through her insurance. She is declining SNF. If her caregivers that are being arranged are available prior to home modifications being done, she can return home. She is agreeable to this. Flu shot ordered and COVID booster ordered on 10/26 at her request Admission and Anticipated Discharge Date Admission Date: October 01, 2022 Subjective Pt anxious to get home in near future. Asks about getting a flu shot and also agreeable to COVID booster. Discussed increasing her diuretic to get her weight back to baseline but she wants to hold off on this until she gets home as she doesn't want to have urinary urgency and not have a private caregiver that can help her get to the tpoilet quickly. She does have insulin pump at home but hasn't used it since March 2022 Discussed her care with Glycemic Pharmacist. Review of Systems Review of Systems: Mild distress and fatigue no headache, no visual changes Patient is speech when she occludes her medical tracheostomy. No swallowing or eating issues. no chest pain, pressure or palpitations no shortness of breath, occasional cough with whitish sputum no abdominal pain, nausea or vomiting, diarrhea or constipation no dysuria, hematuria or frequency Continued right leg discomfort especially with weightbearing bilateral lower extremity edema no back pain, CVA tenderness or radicular pain no bruising, bleeding or rashes no focal signs of weakness or numbness or altered sensation no complaints of anxiety or depression.. Physical Exam Physical Exam: The patient appeared well nourished and normally developed. Patient is morbidly obese with a BMI of 59 Vital signs as documented. Head exam is normocephalic atraumatic Neck is without JVD, thyromegaly, or carotid bruits. Lungs are clear to auscultation, diminished at the bases Cardiac exam, Rhythm is regular.. No murmurs, rubs or gallops. Abdominal exam reveals normal bowel sounds, soft non tender, Extremities are with bilateral lower extremity edema which is chronic patient has tenderness to examination of her right knee Neurologic exam is alert and oriented, no focal loss of strength or sensation Skin is without bruises or rashes Psychologically is without concerns for anxiety or depression.. Results & Data Results & Data ([facility]) Vital Signs (Past 12 Hours) Vital Signs Temp Pulse Resp BP Pulse Ox O2 Del Method O2 Flow Rate 10/27/22 07:52 74 18 95 Room Air 10/27/22 07:34 98.2 F 73 16 153/81 H 95 Room Air, Trach Collar 10/27/22 02:26 76 99 Trach Collar 10 10/26/22 20:48 98.4 F 89 22 125/68 94 Room Air PG Care Time/CCT Total # of Minutes Spent Total Time Spent with Patient: Total time spent is greater than 50% in coordination of care (as documented) at patient's floor/unit and/or counseling patient: Coding Level of Care Code 85414 Subseq Hosp Care Lvl 2 Diagnoses SOB (shortness of breath) R06.02 Chronic diastolic congestive heart failure I50.32 Atypical chest pain R07.89 Weakness R53.1 Fracture of distal end of right femur S72.401A Hypothyroidism (acquired) E03.9 CKD stage 4 due to type 2 diabetes mellitus E11.22; N18.4 GERD (gastroesophageal reflux disease) K21.9 Insulin-requiring or dependent type II diabetes mellitus E11.9; Z79.4 Anxiety F41.9 Morbid obesity with BMI of 60.0-69.9, adult E66.01; Z68.44
[2022-10-27] MEDS: LANTUS PER UNIT CHARGE SQ SCH ×2 (08:57→20:44)
[2022-10-27] MEDS: INSULIN ASPART PER UNIT SC SCH ×4 (08:57→20:44)
[2022-10-27] MEDS: oxyCODONE HCL IR 5 MG TAB (IMMEDIATE RELEASE) PO PRN (11:14)
[2022-10-27] MEDS: ATORVASTATIN 40 MG TAB PO SCH (20:35)
[2022-10-28] MEDS: ACETAMINOPHEN 325 MG TAB PO PRN (02:59)
[2022-10-28] MEDS: oxyCODONE HCL IR 5 MG TAB (IMMEDIATE RELEASE) PO PRN (02:59)
[2022-10-28] MEDS: LEVOTHYROXINE SODIUM 25 MCG TABLET PO SCH (05:49)
[2022-10-28] MEDS: DICLOFENAC SOD 1% GEL 100 GM TUBE EXT PRN (05:49)
[2022-10-28] MEDS: LEVOTHYROXINE SODIUM 200 MCG TABLET PO SCH (05:49)
[2022-10-28] MEDS: PANTOprazole 40 MG TAB PO SCH (05:49)
[2022-10-28] MEDS: HEPARIN SOD 5,000 UNIT/0.5 ML VIAL SQ SCH ×3 (05:49→21:05)
[2022-10-28] MEDS: TORSEMIDE 20 MG TAB PO SCH (05:52)
[2022-10-28] MEDS: ALBUT/IPRATROP 3MG/0.5MG NEB 3 ML VIAL NEB SCH ×4 (07:23→20:01)
[2022-10-28] MEDS: MAGNESIUM OXIDE 400 MG TAB PO SCH (07:46)
[2022-10-28] MEDS: FOLIC ACID 1 MG TAB PO SCH (07:46)
[2022-10-28] MEDS: ISOSORBIDE MONO EXTENDED REL 30 MG TABCR PO SCH (07:46)
[2022-10-28] MEDS: buPROPion SR 100 MG TABCR PO SCH ×2 (07:46→21:07)
[2022-10-28] MEDS: POTASSIUM CHLORIDE CRTAB 20 MEQ TABCR PO SCH (07:47)
[2022-10-28] MEDS: SPIRONOLACTONE 25 MG TAB PO SCH (07:47)
[2022-10-28] MEDS: EMPAGLIFLOZIN 10 MG TAB PO SCH (07:47)
[2022-10-28] MEDS: ASPIRIN 81 MG ECTAB PO SCH (07:47)
[2022-10-28] MEDS: TOPIRAMATE 100 MG TAB PO SCH ×2 (07:47→21:05)
[2022-10-28] MEDS: METOPROLOL TARTRATE 25 MG TAB PO SCH ×2 (07:48→21:06)
[2022-10-28] MEDS: BACITRACIN/POLYMYXIN B SULFATE 90 APPLN/28.4 GM TUBE EXT SCH ×2 (07:48→21:08)
[2022-10-28] MEDS: MULTIVITAMIN TAB PO SCH (07:50)
[2022-10-28] MEDS: NYSTATIN POWDER 15GM BTL EXT SCH ×2 (07:50→22:16)
[2022-10-28] MEDS: DOCUSATE SODIUM 100 MG CAP PO SCH ×2 (07:50→21:31)
[2022-10-28] MEDS: INSULIN ASPART PER UNIT SC SCH ×4 (09:08→21:32)
[2022-10-28] MEDS: LANTUS PER UNIT CHARGE SQ SCH ×2 (09:08→21:31)
--- NOTE | 2022-10-28 13:47 | Pharmacy Report ---
Pharmacy Glycemic Short Note 2 - Date of Service October 28, 2022 - Glycemic Short BSG Results (Last 24 hours): 10/27/22 10/27/22 10/28/22 16:56 20:32 07:58 POC Glucose 159 H 146 H 153 H 10/28/22 12:03 POC Glucose 137 H OUTPATIENT ANTIDIABETIC REGIMEN: * Lantus 80 units SC BID * Humalog scale * HbA1C = 8.9% (07/25/22) ASSESSMENT: 10/28: * Patient received total 257 units of insulin yesterday; 140 units basal and 117 units bolus. * BSGs have been well controlled on this dosing. Continued the same. * Plan is for patient to have her daughter bring in pump supplies to resume her pump before discharge. When I called this morning, supplies have not been brought in yet. 10/26/22 * Ms Connelly has been requiring ~180 units of insulin per day, with stable glycemic control for the past few days. She is also receiving Jardiance 10mg daily. * Pt would like to go back to using her insulin pump after discharge. RN has spoken with patient, and she will arrange for her daughter to bring her pump supplies into the hospital prior to discharge. * Ideally, we will be able to make this transition prior to discharge to ensure that pump is working adequately/safely prior to return home. * CDE has also been consulted to assist with transition. PLAN FOR INPATIENT GLYCEMIC CONTROL: * Jardiance 10 mg PO AM * Basal insulin - * Lantus 70 units SQ BID * Bolus insulin * NovoLog per scale ACHS or Q6hrs while NPO * Goal Range: Low 110 mg/dL - High 140 mg/dL * Correction Factor: 5 mg/dL/unit * Nutritional / Prandial insulin per carb ratio of 1 unit per 1.5 grams CHO consumed
--- NOTE | 2022-10-28 20:12 | Hospitalist Progress Note ---
Date of Service October 28, 2022 Assessment & Plan (1) SOB (shortness of breath): Plan: - Acute on Chronic related to COPD, OHS, RASHAAD, CHF-resolved - continue prn Duonebs and inhalers - continue Guaifenesin 200mg (liq) PO q6 -No longer needs hypertonic saline nebs-discontinued, no chest PT needed Now at baseline and awaiting home health arrangements. (2) Chronic diastolic congestive heart failure: Plan: Acute on chronic HFrEF-resolved - noted 15kg weight gain since 09/09 on admission--> weight down somewhat now after received some IV diuresis early on, but not back to baseline weight - echo 2020 EF 55-60%, repeat echo here--EF 45-50% but otherwise no significant changes from prior exam - continue torsemide 20 mg daily and add on a prn dose in the afternoon--> she declines to take extra afternoon dose in the hospital due to difficulty getting to the bathroom quickly. She says she'll take the extra dose when she gets home -continue spironolactone, metoprolol, isosorbide mononitrate, ASA, atorvastatin - ordered daily weights and I/O monitoring, okay to discontinue heart healthy diet as patient requests vaughn for breakfast-warned not to eat this daily - has been treated for a/c diastolic chf exacerbation intermittently with doses of IV Lasix --> appears compensated at this point but still not at dry weight - Continue Jardiance 10mg daily -check BMP periodically- (3) Atypical chest pain: Plan: related to acute HFpEF as above-resolved - Troponin negative x2 - CXR:No acute chest disease. Cardiomegaly is noted. - EKG: unchanged from previous - No further c/o CP after diuresis - d/c'd tele 10/02, now on med/surg (4) Weakness: Plan: - Related to morbid obesity and chronic R femur fx with nonunion - PT/OT as often as possible - Case management for complex dc issues (5) Fracture of distal end of right femur: Plan: - Chronic, NWB to RLE - PT/OT - Pain control -- continue OxyIR prn - Continue APAP as needed for mild to moderate pain (6) Hypothyroidism (acquired): Plan: - Continue Levothyroxine, recent increased from 200mcg daily to 225mcg in mid Aug for elevated TSH TSH repeated on 10/22 and is now normal at 1.1 (7) CKD stage 4 due to type 2 diabetes mellitus: Plan: (baseline creatinine 1.3-1.8) Most recent creatinine at baseline at 1.59 -Avoid nephrotoxins -renally dose meds when appropriate -follow BMP periodically (8) GERD (gastroesophageal reflux disease): Plan: - Continue protonix (9) Insulin-requiring or dependent type II diabetes mellitus: Plan: continue Lantus and Novolog, high doses 10/28 171, 153, 146, 172 Continue Jardiance last HgbA1C 9.4% in 07/2022-now hemoglobin A1c on 10/22 down to 7.2% SHe has an insulin pump at home but has not used it since March 2022 when she first went into the hospital, SHe is interested in restarting this upon return to home. She will have her daughter bring in her pump from home and I have asked Glycemic control Pharmacist and in turn, the [employer] to assist with getting her pump settings appropriate and functioning prior to discharge -f/u with Endocrine after discharge (10) Anxiety: Plan: - continue bupropion (11) Morbid obesity with BMI of 60.0-69.9, adult: Plan: - weight loss advised given that it is the root cause of many of her medical issues continue topamax 100 mg in the morning and 200 hs Plan Continue PT/OT. Case management consult for complex dc needs. stable for home once set up with home modifications to her home are done which are ongoing through her insurance. She is declining SNF. If her caregivers that are being arranged are available prior to home modifications being done, she can return home. She is agreeable to this. Flu shot ordered and COVID booster ordered on 10/26 at her request Admission and Anticipated Discharge Date Admission Date: October 01, 2022 Subjective seen at 1215 h Sitting up in chair, cheerful and interactive, Denies chest pain/shortness of breath/nausea/vomiting/dizziness /depressed mood Has had a tracheostomy for several months after pneumonia and respiratory failure for which she was in [facility] earlier this year for a prolonged period of time. Has had been in a shelter since March but now wants to go home. Physical Exam Physical Exam: Really obese pleasant lady, oneill facies, Head and neck tracheostomy collar on, occludes it and talks with good voice, diffuse fine facial hair most prominently on chin Chest diminished entry breath sounds bilaterally Abdomen still obese nontender Results & Data Results & Data ([facility]) Vital Signs (Past 12 Hours) Vital Signs Temp Pulse Resp BP Pulse Ox O2 Del Method 10/28/22 16:50 20 10/28/22 15:48 90 26 H 94 Room Air 10/28/22 15:42 36.8 C 94 H 20 136/68 93 Room Air 10/28/22 10:54 75 18 92 Room Air Laboratory Results Abnormal lab results 10/27/22 10/28/22 10/28/22 Range/Units 20:32 07:58 12:03 POC Glucose 146 H 153 H 137 H (70-99) mg/dl 10/28/22 Range/Units 17:19 POC Glucose 171 H (70-99) mg/dl PG Care Time/CCT Total # of Minutes Spent Total Time Spent with Patient: Total time spent is greater than 50% in coordination of care (as documented) at patient's floor/unit and/or counseling patient: Coding Level of Care Code 93224 Subseq Hosp Care Lvl 2 Diagnoses SOB (shortness of breath) R06.02 Chronic diastolic congestive heart failure I50.32 Atypical chest pain R07.89 Weakness R53.1 Fracture of distal end of right femur S72.401A Hypothyroidism (acquired) E03.9 CKD stage 4 due to type 2 diabetes mellitus E11.22; N18.4 GERD (gastroesophageal reflux disease) K21.9 Insulin-requiring or dependent type II diabetes mellitus E11.9; Z79.4 Anxiety F41.9 Morbid obesity with BMI of 60.0-69.9, adult E66.01; Z68.44
[2022-10-28] MEDS: ATORVASTATIN 40 MG TAB PO SCH (21:05)
[2022-10-29] MEDS: LEVOTHYROXINE SODIUM 200 MCG TABLET PO SCH (06:11)
[2022-10-29] MEDS: TORSEMIDE 20 MG TAB PO SCH (06:11)
[2022-10-29] MEDS: LEVOTHYROXINE SODIUM 25 MCG TABLET PO SCH (06:11)
[2022-10-29] MEDS: HEPARIN SOD 5,000 UNIT/0.5 ML VIAL SQ SCH ×3 (06:11→21:28)
[2022-10-29] MEDS: PANTOprazole 40 MG TAB PO SCH (06:11)
[2022-10-29] MEDS: ALBUT/IPRATROP 3MG/0.5MG NEB 3 ML VIAL NEB SCH ×4 (07:54→19:39)
[2022-10-29] MEDS: buPROPion SR 100 MG TABCR PO SCH ×2 (08:20→19:50)
[2022-10-29] MEDS: FOLIC ACID 1 MG TAB PO SCH (08:20)
[2022-10-29] MEDS: METOPROLOL TARTRATE 25 MG TAB PO SCH ×2 (08:20→20:00)
[2022-10-29] MEDS: ISOSORBIDE MONO EXTENDED REL 30 MG TABCR PO SCH (08:21)
[2022-10-29] MEDS: AZITHROMYCIN 250 MG TAB PO SCH (08:21)
[2022-10-29] MEDS: SPIRONOLACTONE 25 MG TAB PO SCH (08:21)
[2022-10-29] MEDS: POTASSIUM CHLORIDE CRTAB 20 MEQ TABCR PO SCH (08:21)
[2022-10-29] MEDS: TOPIRAMATE 100 MG TAB PO SCH ×2 (08:21→19:51)
[2022-10-29] MEDS: MULTIVITAMIN TAB PO SCH (08:21)
[2022-10-29] MEDS: NYSTATIN POWDER 15GM BTL EXT SCH ×2 (08:21→20:01)
[2022-10-29] MEDS: MAGNESIUM OXIDE 400 MG TAB PO SCH (08:21)
[2022-10-29] MEDS: ASPIRIN 81 MG ECTAB PO SCH (08:22)
[2022-10-29] MEDS: BACITRACIN/POLYMYXIN B SULFATE 90 APPLN/28.4 GM TUBE EXT SCH ×2 (08:22→19:49)
[2022-10-29] MEDS: EMPAGLIFLOZIN 10 MG TAB PO SCH (08:23)
[2022-10-29] MEDS: DOCUSATE SODIUM 100 MG CAP PO SCH ×2 (08:23→19:54)
[2022-10-29] MEDS: INSULIN ASPART PER UNIT SC SCH ×4 (09:12→21:28)
[2022-10-29] MEDS: LANTUS PER UNIT CHARGE SQ SCH ×2 (09:12→21:27)
--- NOTE | 2022-10-29 14:09 | Pharmacy Report ---
Pharmacy Glycemic Short Note 2 - Date of Service October 29, 2022 - Glycemic Short BSG Results (Last 24 hours): 10/28/22 10/28/22 10/29/22 17:19 20:40 08:20 POC Glucose 171 H 181 H 148 H 10/29/22 12:06 POC Glucose 171 H OUTPATIENT ANTIDIABETIC REGIMEN: * Lantus 80 units SC BID * Humalog scale * HbA1C = 8.9% (07/25/22) ASSESSMENT: 10/29: * Patient received a total of 259 units of insulin; 140 units were basal insulin * FBSG is 148 today. Will continue the same basal dose * patient educator met with patient to review pump settings. Plan is to transition to once daily basal insulin over the weekend. Plan to re-attach pump on Tuesday (educator is aware of plan) with tentative discharge on Sunday 10/28: * Patient received total 257 units of insulin yesterday; 140 units basal and 117 units bolus. * BSGs have been well controlled on this dosing. Continued the same. * Plan is for patient to have her daughter bring in pump supplies to resume her pump before discharge. When I called this morning, supplies have not been brought in yet. 10/26/22 * Ms Connelly has been requiring ~180 units of insulin per day, with stable glycemic control for the past few days. She is also receiving Jardiance 10mg daily. * Pt would like to go back to using her insulin pump after discharge. RN has spoken with patient, and she will arrange for her daughter to bring her pump supplies into the hospital prior to discharge. * Ideally, we will be able to make this transition prior to discharge to ensure that pump is working adequately/safely prior to return home. * CDE has also been consulted to assist with transition. PLAN FOR INPATIENT GLYCEMIC CONTROL: * Jardiance 10 mg PO AM * Basal insulin - * Lantus 70 units SQ BID * Bolus insulin * NovoLog per scale ACHS or Q6hrs while NPO * Goal Range: Low 110 mg/dL - High 140 mg/dL * Correction Factor: 5 mg/dL/unit * Nutritional / Prandial insulin per carb ratio of 1 unit per 1.5 grams CHO consumed
[2022-10-29] MEDS: ATORVASTATIN 40 MG TAB PO SCH (19:49)
--- NOTE | 2022-10-29 20:30 | Hospitalist Progress Note ---
Date of Service October 29, 2022 Assessment & Plan (1) SOB (shortness of breath): Plan: - Acute on Chronic related to COPD, OHS, RASHAAD, CHF-resolved - continue prn Duonebs and inhalers - continue Guaifenesin 200mg (liq) PO q6 -No longer needs hypertonic saline nebs-discontinued, no chest PT needed Now at baseline and awaiting home health arrangements. (2) Chronic diastolic congestive heart failure: Plan: Acute on chronic HFrEF-resolved - noted 15kg weight gain since 09/09 on admission--> weight down somewhat now after received some IV diuresis early on, but not back to baseline weight - echo 2020 EF 55-60%, repeat echo here--EF 45-50% but otherwise no significant changes from prior exam - continue torsemide 20 mg daily and add on a prn dose in the afternoon--> she declines to take extra afternoon dose in the hospital due to difficulty getting to the bathroom quickly. She says she'll take the extra dose when she gets home -continue spironolactone, metoprolol, isosorbide mononitrate, ASA, atorvastatin - ordered daily weights and I/O monitoring, okay to discontinue heart healthy diet as patient requests vaughn for breakfast-warned not to eat this daily - has been treated for a/c diastolic chf exacerbation intermittently with doses of IV Lasix --> appears compensated at this point but still not at dry weight - Continue Jardiance 10mg daily -check BMP periodically- (3) Atypical chest pain: Plan: related to acute HFpEF as above-resolved - Troponin negative x2 - CXR:No acute chest disease. Cardiomegaly is noted. - EKG: unchanged from previous - No further c/o CP after diuresis - d/c'd tele 10/02, now on med/surg (4) Weakness: Plan: - Related to morbid obesity and chronic R femur fx with nonunion - PT/OT as often as possible - Case management for complex dc issues (5) Fracture of distal end of right femur: Plan: - Chronic, NWB to RLE - PT/OT - Pain control -- continue OxyIR prn - Continue APAP as needed for mild to moderate pain (6) Hypothyroidism (acquired): Plan: - Continue Levothyroxine, recent increased from 200mcg daily to 225mcg in mid Aug for elevated TSH TSH repeated on 10/22 and is now normal at 1.1 (7) CKD stage 4 due to type 2 diabetes mellitus: Plan: (baseline creatinine 1.3-1.8) Most recent creatinine at baseline at 1.59 -Avoid nephrotoxins -renally dose meds when appropriate -follow BMP periodically (8) GERD (gastroesophageal reflux disease): Plan: - Continue protonix (9) Insulin-requiring or dependent type II diabetes mellitus: Plan: continue Lantus and Novolog, high doses 10/28 171, 153, 146, 172 Continue Jardiance last HgbA1C 9.4% in 07/2022-now hemoglobin A1c on 10/22 down to 7.2% SHe has an insulin pump at home but has not used it since March 2022 when she first went into the hospital, SHe is interested in restarting this upon return to home. She will have her daughter bring in her pump from home and I have asked Glycemic control Pharmacist and in turn, the [employer] to assist with getting her pump settings appropriate and functioning prior to discharge -f/u with Endocrine after discharge Insulin pump obtained from home. Diabetes nurse Penny transitioning her to Lantus and insulin properly resumed at discharge. (10) Anxiety: Plan: - continue bupropion (11) Morbid obesity with BMI of 60.0-69.9, adult: Plan: - weight loss advised given that it is the root cause of many of her medical is sues continue topamax 100 mg in the morning and 200 hs Plan Continue PT/OT. Case management consult for complex dc needs. stable for home once set up with home modifications to her home are done which are ongoing through her insurance. She is declining SNF. If her caregivers that are being arranged are available prior to home modifications being done, she can return home. She is agreeable to this. Flu shot ordered and COVID booster given 10/28 There is some ramp reconstruction going on at home and the patient insists on returning home with daughter. That is delayed discharge. The patient has been in hospital now for almost a month. Admission and Anticipated Discharge Date Admission Date: October 01, 2022 Subjective No complaints, eating well, no shortness of breath. Sleeps sitting up for several months and there is no change. CPAP at night Physical Exam Physical Exam: Really obese pleasant lady, oneill facies, sitting up in bed, normal phonation when she occludes her tracheostomy with a finger Head and neck tracheostomy collar on, occludes it and talks with good voice, diffuse fine facial hair most prominently on chin Chest diminished entry breath sounds bilaterally Abdomen still obese nontender Trace edema pretibial Normal insight and judgment Results & Data Results & Data ([facility]) Vital Signs (Past 12 Hours) Vital Signs Temp Pulse Pulse Resp BP Pulse Ox O2 Del Method 10/29/22 19:55 36.6 C 96 H 16 120/71 95 Room Air 10/29/22 19:39 90 22 91 Room Air 10/29/22 15:35 81 19 94 Room Air 10/29/22 15:01 36.8 C 87 20 116/69 94 Room Air 10/29/22 10:47 78 18 97 Room Air Laboratory Results Abnormal lab results 10/28/22 10/29/22 10/29/22 Range/Units 20:40 08:20 12:06 POC Glucose 181 H 148 H 171 H (70-99) mg/dl 10/29/22 Range/Units 17:27 POC Glucose 165 H (70-99) mg/dl PG Care Time/CCT Total # of Minutes Spent Total Time Spent with Patient: Total time spent is greater than 50% in coordination of care (as documented) at patient's floor/unit and/or counseling patient: Coding Level of Care Code 46026 Subseq Hosp Care Lvl 1 Diagnoses SOB (shortness of breath) R06.02 Chronic diastolic congestive heart failure I50.32 Atypical chest pain R07.89 Weakness R53.1 Fracture of distal end of right femur S72.401A Hypothyroidism (acquired) E03.9 CKD stage 4 due to type 2 diabetes mellitus E11.22; N18.4 GERD (gastroesophageal reflux disease) K21.9 Insulin-requiring or dependent type II diabetes mellitus E11.9; Z79.4 Anxiety F41.9 Morbid obesity with BMI of 60.0-69.9, adult E66.01; Z68.44
[2022-10-29] MEDS: oxyCODONE HCL IR 5 MG TAB (IMMEDIATE RELEASE) PO PRN (22:54)
[2022-10-29] MEDS: ACETAMINOPHEN 325 MG TAB PO PRN (22:56)
[2022-10-30] MEDS: PANTOprazole 40 MG TAB PO SCH (06:20)
[2022-10-30] MEDS: LEVOTHYROXINE SODIUM 25 MCG TABLET PO SCH (06:20)
[2022-10-30] MEDS: LEVOTHYROXINE SODIUM 200 MCG TABLET PO SCH (06:20)
[2022-10-30] MEDS: HEPARIN SOD 5,000 UNIT/0.5 ML VIAL SQ SCH ×3 (06:21→21:12)
[2022-10-30] MEDS: TORSEMIDE 10 MG TAB PO PRN ×2 (06:21→08:15)
[2022-10-30] MEDS: TORSEMIDE 20 MG TAB PO SCH (06:23)
[2022-10-30] MEDS: DICLOFENAC SOD 1% GEL 100 GM TUBE EXT PRN ×2 (06:28→21:19)
[2022-10-30] MEDS: ALBUT/IPRATROP 3MG/0.5MG NEB 3 ML VIAL NEB SCH ×4 (08:06→19:26)
[2022-10-30] MEDS: ASPIRIN 81 MG ECTAB PO SCH (08:15)
[2022-10-30] MEDS: MAGNESIUM OXIDE 400 MG TAB PO SCH (08:15)
[2022-10-30] MEDS: ISOSORBIDE MONO EXTENDED REL 30 MG TABCR PO SCH (08:15)
[2022-10-30] MEDS: MULTIVITAMIN TAB PO SCH (08:16)
[2022-10-30] MEDS: POTASSIUM CHLORIDE CRTAB 20 MEQ TABCR PO SCH (08:16)
[2022-10-30] MEDS: buPROPion SR 100 MG TABCR PO SCH ×2 (08:16→21:11)
[2022-10-30] MEDS: SPIRONOLACTONE 25 MG TAB PO SCH (08:16)
[2022-10-30] MEDS: TOPIRAMATE 100 MG TAB PO SCH ×2 (08:16→21:09)
[2022-10-30] MEDS: EMPAGLIFLOZIN 10 MG TAB PO SCH (08:16)
[2022-10-30] MEDS: BACITRACIN/POLYMYXIN B SULFATE 90 APPLN/28.4 GM TUBE EXT SCH ×2 (08:17→21:13)
[2022-10-30] MEDS: METOPROLOL TARTRATE 25 MG TAB PO SCH ×2 (08:17→21:11)
[2022-10-30] MEDS: NYSTATIN POWDER 15GM BTL EXT SCH ×2 (08:17→21:13)
[2022-10-30] MEDS: DOCUSATE SODIUM 100 MG CAP PO SCH ×2 (08:23→21:10)
[2022-10-30] MEDS: INSULIN ASPART PER UNIT SC SCH ×4 (09:13→20:58)
[2022-10-30] MEDS: LANTUS PER UNIT CHARGE SQ SCH ×2 (09:13→21:05)
[2022-10-30] MEDS: FOLIC ACID 1 MG TAB PO SCH (09:35)
[2022-10-30] MEDS: oxyCODONE HCL IR 5 MG TAB (IMMEDIATE RELEASE) PO PRN ×2 (10:05→23:51)
[2022-10-30] MEDS: ACETAMINOPHEN 325 MG TAB PO PRN ×2 (11:45→21:16)
--- NOTE | 2022-10-30 18:06 | Hospitalist Progress Note ---
Date of Service October 30, 2022 Assessment & Plan (1) SOB (shortness of breath): Plan: - Acute on Chronic related to COPD, OHS, RASHAAD, CHF-resolved - continue prn Duonebs and inhalers - continue Guaifenesin 200mg (liq) PO q6 -No longer needs hypertonic saline nebs-discontinued, no chest PT needed Now at baseline and awaiting home health arrangements. (2) Chronic diastolic congestive heart failure: Plan: Acute on chronic HFrEF-resolved - noted 15kg weight gain since 09/09 on admission--> weight down somewhat now after received some IV diuresis early on, but not back to baseline weight - echo 2020 EF 55-60%, repeat echo here--EF 45-50% but otherwise no significant changes from prior exam - continue torsemide 20 mg daily and add on a prn dose in the afternoon--> she declines to take extra afternoon dose in the hospital due to difficulty getting to the bathroom quickly. She says she'll take the extra dose when she gets home -continue spironolactone, metoprolol, isosorbide mononitrate, ASA, atorvastatin - ordered daily weights and I/O monitoring, okay to discontinue heart healthy diet as patient requests vaughn for breakfast-warned not to eat this daily - has been treated for a/c diastolic chf exacerbation intermittently with doses of IV Lasix --> appears compensated at this point but still not at dry weight - Continue Jardiance 10mg daily (3) Atypical chest pain: Plan: related to acute HFpEF as above-resolved - Troponin negative x2 - CXR:No acute chest disease. Cardiomegaly is noted. - EKG: unchanged from previous - No further c/o CP after diuresis now on med/surg (4) Weakness: Plan: - Related to morbid obesity and chronic R femur fx with nonunion - PT/OT as often as possible - Case management for complex dc issues (5) Fracture of distal end of right femur: Plan: - Chronic, NWB to RLE - PT/OT - Pain control -- continue OxyIR prn - Continue APAP as needed for mild to moderate pain (6) Hypothyroidism (acquired): Plan: - Continue Levothyroxine, recent increased from 200mcg daily to 225mcg in mid Oct for elevated TSH TSH repeated on 10/22 and is now normal at 1.1 (7) CKD stage 4 due to type 2 diabetes mellitus: Plan: (baseline creatinine 1.3-1.8) Most recent creatinine at baseline at 1.59 -Avoid nephrotoxins -renally dose meds when appropriate -follow BMP periodically (8) GERD (gastroesophageal reflux disease): Plan: - Continue protonix (9) Insulin-requiring or dependent type II diabetes mellitus: Plan: continue Lantus and Novolog, high doses 10/28 171, 153, 146, 172 Continue Jardiance last HgbA1C 9.4% in 07/2022-now hemoglobin A1c on 10/22 down to 7.2% SHe has an insulin pump at home but has not used it since March 2022 when she first went into the hospital, SHe is interested in restarting this upon return to home. She will have her daughter bring in her pump from home and I have asked Glycemic control Pharmacist and in turn, the Meat Puller to assist with getting her pump settings appropriate and functioning prior to discharge -f/u with Endocrine after discharge Insulin pump obtained from home. Diabetes nurse Penny transitioning her to Lantus and insulin properly resumed at discharge. (10) Anxiety: Plan: - continue bupropion (11) Morbid obesity with BMI of 60.0-69.9, adult: Plan: - weight loss advised given that it is the root cause of many of her medical issues continue topamax 100 mg in the morning and 200 hs Plan Continue PT/OT. Case management consult for complex dc needs. stable for home once set up with home modifications to her home are done which are ongoing through her insurance. She is declining SNF. If her caregivers that are being arranged are available prior to home modifications being done, she can return home. She is agreeable to this. Flu shot ordered and COVID booster given 10/28 There is some ramp reconstruction going on at home and the patient insists on returning home with daughter. That is delayed discharge. The patient has been in hospital now for almost a month. 10/30 Patient says home will be ready for her on Tuesday Admission and Anticipated Discharge Date Admission Date: October 01, 2022 Subjective No complaints. Eating well. No difficulty breathing. Baseline orthopneasleeps sitting Physical Exam Physical Exam: Really obese pleasant lady, oneill facies, sitting up in chair when seen at 0935 h, normal phonation even without occlusion of Head and neck tracheostomy collar on, diffuse fine facial hair most prominently on chin Chest diminished entry breath sounds bilaterally Abdomen still obese nontender Trace edema pretibial Normal insight and judgment Results & Data Results & Data ([facility]) Vital Signs (Past 12 Hours) Vital Signs Temp Pulse Pulse Resp BP Pulse Ox O2 Del Method 10/30/22 15:50 36.5 C 80 18 111/65 93 Room Air 10/30/22 15:46 76 20 93 Room Air 10/30/22 11:42 70 16 93 Room Air 10/30/22 11:38 36.7 C 70 14 106/66 93 Room Air 10/30/22 11:04 Room Air 10/30/22 08:07 76 16 94 Room Air 10/30/22 07:42 36.5 C 68 16 110/68 95 Room Air Laboratory Results 10/30/22 10/30/22 10/30/22 17:11 11:55 08:04 POC Glucose 179 H 139 H 118 H 10/29/22 20:30 POC Glucose 165 H Medications Administered Home Medications Medication Instructions Recorded Confirmed Last Taken aspirin 81 mg tablet,delayed 81 mg PO QAM 04/06/19 10/01/22 10/01/22 release (Robert Low Dose Aspirin) bupropion HCl 100 mg tablet,12 hr See Rx Instructions .Route .COMPLEX 04/06/19 10/01/22 10/01/22 08:00 sustained-release metoprolol tartrate 25 mg tablet 12.5 mg PO BID 04/06/19 10/01/22 10/01/22 08:00 multivitamin 1 tab PO QAM 04/06/19 10/01/22 10/01/22 pantoprazole 40 mg tablet,delayed 40 mg PO DAILYBB 04/06/19 10/01/22 10/01/22 release spironolactone 25 mg tablet 25 mg PO QAM 04/06/19 10/01/22 10/01/22 topiramate 100 mg tablet 100 mg PO BID 04/06/19 10/01/22 10/01/22 09:00 Oxygen Home #1 ea 06/28/19 03/22/22 Unknown nitroglycerin 0.4 mg sublingual 0.4 mg sublingual DIRECTED PRN 06/28/19 10/01/22 10/01/22 14:05 tablet Chest Pain nebulizers #1 ea 12/24/20 10/04/22 Unknown betamethasone dipropionate 0.05 % 1 applic topical BID PRN Skin 02/27/21 10/01/22 Unknown topical cream Irritation ipratropium 0.5 mg-albuterol 3 mg 3 ml inhalation Q4H PRN COUGHING, 02/27/21 10/01/22 07/24/22 (2.5 mg base)/3 mL nebulization WHEEZING, SHORTNESS OF BREATH soln folic acid 1 mg tablet 1 mg PO QAM #0 tabs 04/19/21 10/01/22 10/01/22 blood sugar diagnostic (Contour #300 ea 09/29/21 10/04/22 Unknown Next Test Strips) albuterol sulfate 90 mcg/actuation 2 puff inhalation Q4 PRN Shortness 11/25/21 10/01/22 Unknown aerosol inhaler Of Breath atorvastatin 40 mg tablet 40 mg PO QPM #90 tabs 01/14/22 10/01/22 09/30/22 acetaminophen 500 mg tablet 500 mg PO QPM 03/23/22 10/01/22 09/30/22 (Tylenol Extra Strength) acidophilus 100 million 1 cap PO QAM 03/23/22 10/01/22 10/01/22 cell-pectin, citrus 10 mg capsule torsemide 10 mg tablet 10 mg PO BID 07/24/22 10/01/22 10/01/22 07:00 insulin glargine 100 unit/mL (3 80 unit (0.8 mL) subcut BID #48 mL 09/07/22 10/01/22 10/01/22 08:00 mL) subcutaneous pen isosorbide mononitrate 30 mg 30 mg PO QAM #30 tabs 09/07/22 10/01/22 10/01/22 tablet,extended release 24 hr oxycodone 5 mg tablet 10 mg PO Q8H PRN pain #10 tabs 09/07/22 10/01/22 10/01/22 08:22 acetaminophen 325 mg tablet 650 mg PO Q6H PRN FEVER/PAIN 10/01/22 10/01/22 Unknown (Tylenol) docusate sodium 100 mg capsule 100 mg PO BID 10/01/22 10/01/22 10/01/22 08:00 insulin lispro 100 unit/mL 1 sliding scale dose subcut 10/01/22 10/01/22 10/01/22 11:30 subcutaneous pen (Humalog KwikPen USEASDIRECTD 2 UNITS (U-100) Insulin) ipratropium 20 mcg-albuterol 100 1 puff inhalation QID 10/01/22 10/01/22 10/01/22 12:00 mcg/actuation mist for inhalation (Combivent Respimat) levothyroxine 200 mcg tablet 200 mcg PO DAILYBB 10/01/22 10/01/22 10/01/22 levothyroxine 25 mcg tablet 25 mcg PO DAILYBB 10/01/22 10/01/22 10/01/22 magnesium oxide 400 mg PO QAM 10/01/22 10/01/22 10/01/22 potassium chloride 20 mEq 20 meq PO BID 10/01/22 10/01/22 10/01/22 08:00 tablet,extended release sulfamethoxazole 800 1 tab PO BID 10/01/22 10/01/22 10/01/22 08:00 mg-trimethoprim 160 mg tablet (Bactrim DS) Active Medications Generic Name Dose Route Start Last Admin Trade Name Freq PRN Reason Stop Dose Admin Acetaminophen 650 mg 10/01/22 20:08 10/30/22 11:45 Acetaminophen 325 Mg Tab PO 10/31/22 20:07 650 mg Q4H PRN Administration Pain or Fever Albuterol 3 ml 10/07/22 07:00 10/30/22 15:46 Albut/Ipratrop 3mg/0.5mg Neb 3 Ml Vial NEB 11/06/22 06:59 3 ml QIDR ASIYA Administration Protocol Albuterol 3 ml 10/06/22 21:59 10/27/22 19:53 Albut/Ipratrop 3mg/0.5mg Neb 3 Ml Vial NEB 11/05/22 21:58 3 ml Q2R PRN Administration Shortness Of Breath Or Wheezing Protocol Aspirin 81 mg 10/02/22 09:00 10/30/22 08:15 Aspirin 81 Mg Ectab PO 11/01/22 08:59 81 mg QAM ASIYA Administration Atorvastatin Calcium 40 mg 10/01/22 21:00 10/29/22 19:49 Atorvastatin 40 Mg Tab PO 10/31/22 20:59 40 mg QPM ASIYA Administration Azithromycin 250 mg 10/27/22 09:00 10/29/22 08:21 Azithromycin 250 Mg Tab PO 11/26/22 08:59 250 mg MoWeFr ASIYA Administration Bacitracin/Polymyxin B Sulfate 1 appln 10/11/22 10:00 10/30/22 08:17 Bacitracin/Polymyxin B Sulfate 90 Appln/28.4 Gm Tube EXT 11/10/22 09:59 1 appln BID ASIYA Administration Bupropion HCl 100 mg 10/02/22 09:00 10/30/22 08:16 Bupropion Sr 100 Mg Tabcr PO 11/01/22 08:59 100 mg QAM ASIYA Administration Bupropion HCl 200 mg 10/01/22 22:00 10/29/22 19:50 Bupropion Sr 100 Mg Tabcr PO 10/31/22 21:59 200 mg PM ASIYA Administration Diclofenac Sodium 2 gm 10/21/22 23:26 10/30/22 06:28 Diclofenac Sod 1% Gel 100 Gm Tube EXT 11/21/22 08:59 2 gm BID PRN Administration joint pain Protocol Docusate Sodium 100 mg 10/01/22 21:00 10/30/22 08:23 Docusate Sodium 100 Mg Cap PO 10/31/22 20:59 100 mg BID ASIYA Administration Empagliflozin 10 mg 10/13/22 09:00 10/30/22 08:16 Empagliflozin 10 Mg Tab PO 11/12/22 08:59 10 mg QAM ASIYA Administration Folic Acid 1 mg 10/02/22 09:00 10/30/22 09:35 Folic Acid 1 Mg Tab PO 11/01/22 08:59 1 mg QAM ASIYA Administration Heparin Sodium (Porcine) 5,000 units 10/01/22 22:00 10/30/22 14:03 Heparin Sod 5,000 Unit/0.5 Ml Vial SQ 10/31/22 21:59 5,000 units Q8 ASIYA Administration Insulin Aspart 0 units 10/01/22 21:00 10/30/22 17:50 Insulin Aspart Per Unit SC 11/06/22 20:59 41 units ACHS ASIYA Administration Protocol Insulin Glargine 70 units 10/24/22 09:00 10/30/22 09:13 Lantus Per Unit Charge SQ 11/23/22 08:59 70 units BID ASIYA Administration Protocol Isosorbide Mononitrate 30 mg 10/02/22 09:00 10/30/22 08:15 Isosorbide [place] Extended Rel 30 Mg Tabcr PO 11/01/22 08:59 30 mg QAM ASIYA Administration Levothyroxine Sodium 25 mcg 10/02/22 06:30 10/30/22 06:20 Levothyroxine Sodium 25 Mcg Tablet PO 11/01/22 06:29 25 mcg DAILYBB ASIYA Administration Levothyroxine Sodium 200 mcg 10/02/22 06:30 10/30/22 06:20 Levothyroxine Sodium 200 Mcg Tablet PO 11/01/22 06:29 200 mcg DAILYBB ASIYA Administration Magnesium Oxide 400 mg 10/02/22 09:00 10/30/22 08:15 Magnesium Oxide 400 Mg Tab PO 11/01/22 08:59 400 mg QAM ASIYA Administration Metoprolol Tartrate 12.5 mg 10/01/22 21:00 10/30/22 08:17 Metoprolol Tartrate 25 Mg Tab PO 10/31/22 20:59 12.5 mg BID ASIYA Administration Multivitamins 1 tab 10/02/22 09:00 10/30/22 08:16 Multivitamin Tab PO 11/01/22 08:59 1 tab QAM ASIYA Administration Nystatin 1 appln 10/10/22 21:00 10/30/22 08:17 Nystatin Powder 15gm Btl EXT 11/09/22 20:59 1 appln BID ASIYA Administration Oxycodone HCl 5 mg 10/18/22 13:32 10/30/22 10:05 Oxycodone Hcl Ir 5 Mg Tab (Immediate Release) PO 11/01/22 13:31 5 mg Q6H PRN Administration Pain scale >7 or pre-PT Pantoprazole Sodium 40 mg 10/02/22 06:30 10/30/22 06:20 Pantoprazole 40 Mg Tab PO 11/01/22 06:29 40 mg DAILYBB ASIYA Administration Polyethylene Glycol 17 gm 10/01/22 20:08 10/04/22 08:49 Polyethylene (Miralax) 17 Gm Pack PO 10/31/22 20:07 17 gm DAILY PRN Administration Constipation Potassium Chloride 20 meq 10/15/22 10:00 10/30/22 08:16 Potassium Chloride Crtab 20 Meq Tabcr PO 11/14/22 09:59 20 meq QAM ASIYA Administration Spironolactone 25 mg 10/02/22 09:00 10/30/22 08:16 Spironolactone 25 Mg Tab PO 11/01/22 08:59 25 mg QAM ASIYA Administration Topiramate 100 mg 10/27/22 09:00 10/30/22 08:16 Topiramate 100 Mg Tab PO 11/26/22 08:59 100 mg QAM ASIYA Administration Topiramate 200 mg 10/26/22 21:00 10/29/22 19:51 Topiramate 100 Mg Tab PO 11/25/22 20:59 200 mg HS ASIYA Administration Torsemide 20 mg 10/25/22 07:00 10/30/22 06:23 Torsemide 20 Mg Tab PO 11/24/22 06:59 20 mg DAILY@0700 ASIYA Administration Torsemide 20 mg 10/26/22 09:26 10/30/22 08:15 Torsemide 10 Mg Tab PO 11/25/22 16:59 20 mg DAILY@1700 PRN Administration weight gain>2 lbs PG Care Time/CCT Total # of Minutes Spent Total Time Spent with Patient: Total time spent is greater than 50% in coordination of care (as documented) at patient's floor/unit and/or counseling patient: Coding Level of Care Code 18772 Subseq Hosp Care Lvl 1 Diagnoses SOB (shortness of breath) R06.02 Chronic diastolic congestive heart failure I50.32 Atypical chest pain R07.89 Weakness R53.1 Fracture of distal end of right femur S72.401A Hypothyroidism (acquired) E03.9 CKD stage 4 due to type 2 diabetes mellitus E11.22; N18.4 GERD (gastroesophageal reflux disease) K21.9 Insulin-requiring or dependent type II diabetes mellitus E11.9; Z79.4 Anxiety F41.9 Morbid obesity with BMI of 60.0-69.9, adult E66.01; Z68.44
[2022-10-30] MEDS: ATORVASTATIN 40 MG TAB PO SCH (21:10)
[2022-10-31] MEDS: LEVOTHYROXINE SODIUM 200 MCG TABLET PO SCH (06:14)
[2022-10-31] MEDS: PANTOprazole 40 MG TAB PO SCH (06:14)
[2022-10-31] MEDS: HEPARIN SOD 5,000 UNIT/0.5 ML VIAL SQ SCH ×3 (06:14→22:14)
[2022-10-31] MEDS: LEVOTHYROXINE SODIUM 25 MCG TABLET PO SCH (06:14)
[2022-10-31] MEDS: TORSEMIDE 20 MG TAB PO SCH (06:15)
[2022-10-31] MEDS: ALBUT/IPRATROP 3MG/0.5MG NEB 3 ML VIAL NEB SCH ×4 (08:10→19:54)
[2022-10-31] MEDS: LANTUS PER UNIT CHARGE SQ SCH (08:54)
[2022-10-31] MEDS: INSULIN ASPART PER UNIT SC SCH ×4 (08:54→20:38)
[2022-10-31] MEDS: TOPIRAMATE 100 MG TAB PO SCH ×2 (09:38→20:38)
[2022-10-31] MEDS: EMPAGLIFLOZIN 10 MG TAB PO SCH (09:38)
[2022-10-31] MEDS: FOLIC ACID 1 MG TAB PO SCH (09:38)
[2022-10-31] MEDS: METOPROLOL TARTRATE 25 MG TAB PO SCH ×2 (09:39→22:14)
[2022-10-31] MEDS: SPIRONOLACTONE 25 MG TAB PO SCH (09:39)
[2022-10-31] MEDS: ISOSORBIDE MONO EXTENDED REL 30 MG TABCR PO SCH (09:39)
[2022-10-31] MEDS: buPROPion SR 100 MG TABCR PO SCH ×2 (09:39→20:37)
[2022-10-31] MEDS: ASPIRIN 81 MG ECTAB PO SCH (09:39)
[2022-10-31] MEDS: MULTIVITAMIN TAB PO SCH (09:40)
[2022-10-31] MEDS: DOCUSATE SODIUM 100 MG CAP PO SCH ×2 (10:29→20:39)
[2022-10-31] MEDS: POTASSIUM CHLORIDE CRTAB 20 MEQ TABCR PO SCH (10:29)
[2022-10-31] MEDS: MAGNESIUM OXIDE 400 MG TAB PO SCH (10:29)
[2022-10-31] MEDS: TORSEMIDE 10 MG TAB PO PRN (10:30)
[2022-10-31] MEDS: BACITRACIN/POLYMYXIN B SULFATE 90 APPLN/28.4 GM TUBE EXT SCH ×2 (10:31→20:37)
[2022-10-31] MEDS: NYSTATIN POWDER 15GM BTL EXT SCH ×3 (10:31→20:36)
[2022-10-31] MEDS: oxyCODONE HCL IR 5 MG TAB (IMMEDIATE RELEASE) PO PRN (11:45)
[2022-10-31] MEDS: ACETAMINOPHEN 325 MG TAB PO PRN (11:46)
--- NOTE | 2022-10-31 13:54 | Pharmacy Report ---
Pharmacy Glycemic Short Note 2 - Date of Service October 31, 2022 - Glycemic Short BSG Results (Last 24 hours): 10/30/22 10/30/22 10/31/22 17:11 20:42 08:06 POC Glucose 179 H 127 H 134 H 10/31/22 12:04 POC Glucose 163 H OUTPATIENT ANTIDIABETIC REGIMEN: * Lantus 80 units SC BID * Humalog scale * HbA1C = 8.9% (07/25/22) ASSESSMENT: 10/30: * BSGs remain well-controlled on current regimen - will continue current regimen, but will give evening dose of Lantus w/ dinner in preparation for possible transition to insulin pump tomorrow morning. Will need to reassess appropriateness of this plan tomorrow morning. 10/29: * Patient received a total of 259 units of insulin; 140 units were basal insulin * FBSG is 148 today. Will continue the same basal dose * certified breastfeeding educator met with patient to review pump settings. Plan is to transition to once daily basal insulin over the weekend. Plan to re-attach pump on Tuesday (educator is aware of plan) with tentative discharge on Sunday 10/28: * Patient received total 257 units of insulin yesterday; 140 units basal and 117 units bolus. * BSGs have been well controlled on this dosing. Continued the same. * Plan is for patient to have her daughter bring in pump supplies to resume her pump before discharge. When I called this morning, supplies have not been brought in yet. 10/26/22 * Ms Connelly has been requiring ~180 units of insulin per day, with stable glycemic control for the past few days. She is also receiving Jardiance 10mg daily. * Pt would like to go back to using her insulin pump after discharge. RN has spoken with patient, and she will arrange for her daughter to bring her pump supplies into the hospital prior to discharge. * Ideally, we will be able to make this transition prior to discharge to ensure that pump is working adequately/safely prior to return home. * CDE has also been consulted to assist with transition. PLAN FOR INPATIENT GLYCEMIC CONTROL: * Jardiance 10 mg PO AM * Basal insulin - * Lantus 70 units SQ BIDM * Bolus insulin * NovoLog per scale ACHS or Q6hrs while NPO * Goal Range: Low 110 mg/dL - High 140 mg/dL * Correction Factor: 5 mg/dL/unit * Nutritional / Prandial insulin per carb ratio of 1 unit per 1.5 grams CHO consumed
[2022-10-31] MEDS ORDERED: LANTUS PER UNIT CHARGE SQ SCH (17:00)
--- NOTE | 2022-10-31 20:52 | Hospitalist Progress Note ---
Date of Service October 31, 2022 Assessment & Plan (1) SOB (shortness of breath): Plan: - Acute on Chronic related to COPD, OHS, RASHAAD, CHF-resolved - continue prn Duonebs and inhalers - continue Guaifenesin 200mg (liq) PO q6 -No longer needs hypertonic saline nebs-discontinued, no chest PT needed Now at baseline and awaiting home health arrangements. (2) Chronic diastolic congestive heart failure: Plan: Acute on chronic HFrEF-resolved - noted 15kg weight gain since 09/09 on admission--> weight down somewhat now after received some IV diuresis early on, but not back to baseline weight - echo 2020 EF 55-60%, repeat echo here--EF 45-50% but otherwise no significant changes from prior exam - continue torsemide 20 mg daily and add on a prn dose in the afternoon--> she declines to take extra afternoon dose in the hospital due to difficulty getting to the bathroom quickly. She says she'll take the extra dose when she gets home -continue spironolactone, metoprolol, isosorbide mononitrate, ASA, atorvastatin - ordered daily weights and I/O monitoring, okay to discontinue heart healthy diet as patient requests vaughn for breakfast-warned not to eat this daily - has been treated for a/c diastolic chf exacerbation intermittently with doses of IV Lasix --> appears compensated at this point but still not at dry weight - Continue Jardiance 10mg daily- helps that she is also diabetic. (3) Atypical chest pain: Plan: related to acute HFpEF as above-resolved - Troponin negative x2 - CXR:No acute chest disease. Cardiomegaly is noted. - EKG: unchanged from previous - No further c/o CP after diuresis now on med/surg (4) Weakness: Plan: - Related to morbid obesity and chronic R femur fx with nonunion - PT/OT as often as possible - Case management for complex dc issues (5) Fracture of distal end of right femur: Plan: - Chronic, NWB to RLE - PT/OT - Pain control -- continue OxyIR prn - Continue APAP as needed for mild to moderate pain (6) Hypothyroidism (acquired): Plan: - Continue Levothyroxine, recent increased from 200mcg daily to 225mcg in mid Aug for elevated TSH TSH repeated on 10/22 and is now normal at 1.1 (7) CKD stage 4 due to type 2 diabetes mellitus: Plan: (baseline creatinine 1.3-1.8) Most recent creatinine at baseline at 1.59 -Avoid nephrotoxins -renally dose meds when appropriate -follow BMP periodically (8) GERD (gastroesophageal reflux disease): Plan: - Continue protonix (9) Insulin-requiring or dependent type II diabetes mellitus: Plan: continue Lantus and Novolog, high doses adequate control-transition to Lantus starting tomorrow as the patient says she will be ready to go home on . Continue Jardiance last HgbA1C 9.4% in 07/2022-now hemoglobin A1c on 10/22 down to 7.2% SHe has an insulin pump at home but has not used it since March 2022 when she first went into the hospital, SHe is interested in restarting this upon return to home. She will have her daughter bring in her pump from home and I have asked Glycemic control Pharmacist and in turn, the Pegger to assist with getting her pump settings appropriate and functioning prior to discharge -f/u with Endocrine after discharge Insulin pump obtained from home. Diabetes nurse Penny transitioning her to Lantus and insulin properly resumed at discharge. (10) Anxiety: Plan: - continue bupropion (11) Morbid obesity with BMI of 60.0-69.9, adult: Plan: - weight loss advised given that it is the root cause of many of her medical issues- needs to be addressed - ansd must speak w PCP -resumes care with this PCP after March now that patient is going to be at home. I told the patient there are several drug options for weight loss now. Her Topamax is not prescribed for weight loss Plan Continue PT/OT. Case management consult for complex dc needs. stable for home once set up with home modifications to her home are done which are ongoing through her insurance. She is declining SNF. If her caregivers that are being arranged are available prior to home modifications being done, she can return home. She is agreeable to this. Flu shot ordered and COVID booster given 10/28 There is some ramp reconstruction going on at home and the patient insists on returning home with daughter. That is delayed discharge. The patient has been in hospital now for almost a month. 10/30 Patient says home will be ready for her on Tuesday Admission and Anticipated Discharge Date Admission Date: October 01, 2022 Subjective Seen in the afternoon. Sitting up cheerfully in her chair on room air. States she ambulates to the bathroom on her own and has no complaints. Has never taken any weight loss medications or been treated for severe obesity Physical Exam Physical Exam: Really obese pleasant lady, oneill facies, sitting up in chair when seen this afternoon, normal phonation even without occlusion of tracheostomy stoma Head and neck tracheostomy collar on, diffuse fine facial hair most prominently on chin Chest diminished entry breath sounds bilaterally Abdomen still obese nontender Trace edema pretibial Normal insight and judgment Results & Data Results & Data ([facility]) Vital Signs (Past 12 Hours) Vital Signs Temp Pulse Pulse Pulse Resp BP BP 10/31/22 17:43 36.6 C 78 19 96/64 L 10/31/22 14:40 71 19 10/31/22 12:29 36.9 C 78 18 122/78 10/31/22 11:30 36.5 C 84 18 102/64 10/31/22 11:18 66 18 Pulse Ox O2 Del Method 10/31/22 17:43 93 Room Air 10/31/22 14:40 94 Room Air 10/31/22 12:29 94 Room Air 10/31/22 11:30 95 Room Air 10/31/22 11:18 96 Room Air Laboratory Results Abnormal lab results 10/31/22 10/31/22 10/31/22 Range/Units 08:06 12:04 17:20 POC Glucose 134 H 163 H 148 H (70-99) mg/dl Medications Administered Home Medications Medication Instructions Recorded Confirmed Last Taken aspirin 81 mg tablet,delayed 81 mg PO QAM 04/06/19 10/01/22 10/01/22 release (Robert Low Dose Aspirin) bupropion HCl 100 mg tablet,12 hr See Rx Instructions .Route .COMPLEX 04/06/19 10/01/22 10/01/22 08:00 sustained-release metoprolol tartrate 25 mg tablet 12.5 mg PO BID 04/06/19 10/01/22 10/01/22 08:00 multivitamin 1 tab PO QAM 04/06/19 10/01/22 10/01/22 pantoprazole 40 mg tablet,delayed 40 mg PO DAILYBB 04/06/19 10/01/22 10/01/22 release spironolactone 25 mg tablet 25 mg PO QAM 04/06/19 10/01/22 10/01/22 topiramate 100 mg tablet 100 mg PO BID 04/06/19 10/01/22 10/01/22 09:00 Oxygen Home #1 ea 06/28/19 03/22/22 Unknown nitroglycerin 0.4 mg sublingual 0.4 mg sublingual DIRECTED PRN 06/28/19 10/01/22 10/01/22 14:05 tablet Chest Pain nebulizers #1 ea 12/24/20 10/04/22 Unknown betamethasone dipropionate 0.05 % 1 applic topical BID PRN Skin 02/27/21 10/01/22 Unknown topical cream Irritation ipratropium 0.5 mg-albuterol 3 mg 3 ml inhalation Q4H PRN COUGHING, 02/27/21 10/01/22 07/24/22 (2.5 mg base)/3 mL nebulization WHEEZING, SHORTNESS OF BREATH soln folic acid 1 mg tablet 1 mg PO QAM #0 tabs 04/19/21 10/01/22 10/01/22 blood sugar diagnostic (Contour #[phone] ea 09/29/21 10/04/22 Unknown Next Test Strips) albuterol sulfate 90 mcg/actuation 2 puff inhalation Q4 PRN Shortness 11/25/21 10/01/22 Unknown aerosol inhaler Of Breath atorvastatin 40 mg tablet 40 mg PO QPM #90 tabs 01/14/22 10/01/22 09/30/22 acetaminophen 500 mg tablet 500 mg PO QPM 03/23/22 10/01/22 09/30/22 (Tylenol Extra Strength) acidophilus 100 million 1 cap PO QAM 03/23/22 10/01/22 10/01/22 cell-pectin, citrus 10 mg capsule torsemide 10 mg tablet 10 mg PO BID 07/24/22 10/01/22 10/01/22 07:00 insulin glargine 100 unit/mL (3 80 unit (0.8 mL) subcut BID #48 mL 09/07/22 10/01/22 10/01/22 08:00 mL) subcutaneous pen isosorbide mononitrate 30 mg 30 mg PO QAM #30 tabs 09/07/22 10/01/22 10/01/22 tablet,extended release 24 hr oxycodone 5 mg tablet 10 mg PO Q8H PRN pain #10 tabs 09/07/22 10/01/22 10/01/22 08:22 acetaminophen 325 mg tablet 650 mg PO Q6H PRN FEVER/PAIN 10/01/22 10/01/22 Unknown (Tylenol) docusate sodium 100 mg capsule 100 mg PO BID 10/01/22 10/01/22 10/01/22 08:00 insulin lispro 100 unit/mL 1 sliding scale dose subcut 10/01/22 10/01/22 10/01/22 11:30 subcutaneous pen (Humalog KwikPen USEASDIRECTD 2 UNITS (U-100) Insulin) ipratropium 20 mcg-albuterol 100 1 puff inhalation QID 10/01/22 10/01/22 10/01/22 12:00 mcg/actuation mist for inhalation (Combivent Respimat) levothyroxine 200 mcg tablet 200 mcg PO DAILYBB 10/01/22 10/01/22 10/01/22 levothyroxine 25 mcg tablet 25 mcg PO DAILYBB 10/01/22 10/01/22 10/01/22 magnesium oxide 400 mg PO QAM 10/01/22 10/01/22 10/01/22 potassium chloride 20 mEq 20 meq PO BID 10/01/22 10/01/22 10/01/22 08:00 tablet,extended release sulfamethoxazole 800 1 tab PO BID 10/01/22 10/01/22 10/01/22 08:00 mg-trimethoprim 160 mg tablet (Bactrim DS) Active Medications Generic Name Dose Route Start Last Admin Trade Name Freq PRN Reason Stop Dose Admin Albuterol 3 ml 10/07/22 07:00 10/31/22 19:54 Albut/Ipratrop 3mg/0.5mg Neb 3 Ml Vial NEB 11/06/22 06:59 3 ml QIDR ASIYA Administration Protocol Albuterol 3 ml 10/06/22 21:59 10/27/22 19:53 Albut/Ipratrop 3mg/0.5mg Neb 3 Ml Vial NEB 11/05/22 21:58 3 ml Q2R PRN Administration Shortness Of Breath Or Wheezing Protocol Aspirin 81 mg 10/02/22 09:00 10/31/22 09:39 Aspirin 81 Mg Ectab PO 11/01/22 08:59 81 mg QAM ASIYA Administration Atorvastatin Calcium 40 mg 10/01/22 21:00 10/30/22 21:10 Atorvastatin 40 Mg Tab PO 10/31/22 20:59 40 mg QPM ASIYA Administration Azithromycin 250 mg 10/27/22 09:00 10/29/22 08:21 Azithromycin 250 Mg Tab PO 11/26/22 08:59 250 mg MoWeFr ASIYA Administration Bacitracin/Polymyxin B Sulfate 1 appln 10/11/22 10:00 10/31/22 20:37 Bacitracin/Polymyxin B Sulfate 90 Appln/28.4 Gm Tube EXT 11/10/22 09:59 1 appln BID ASIYA Administration Bupropion HCl 100 mg 10/02/22 09:00 10/31/22 09:39 Bupropion Sr 100 Mg Tabcr PO 11/01/22 08:59 100 mg QAM ASIYA Administration Bupropion HCl 200 mg 10/01/22 22:00 10/31/22 20:37 Bupropion Sr 100 Mg Tabcr PO 10/31/22 21:59 200 mg PM ASIYA Administration Diclofenac Sodium 2 gm 10/21/22 23:26 10/30/22 21:19 Diclofenac Sod 1% Gel 100 Gm Tube EXT 11/21/22 08:59 2 gm BID PRN Administration joint pain Protocol Docusate Sodium 100 mg 10/01/22 21:00 10/31/22 20:39 Docusate Sodium 100 Mg Cap PO 10/31/22 20:59 100 mg BID ASIYA Administration Empagliflozin 10 mg 10/13/22 09:00 10/31/22 09:38 Empagliflozin 10 Mg Tab PO 11/12/22 08:59 10 mg QAM ASIYA Administration Folic Acid 1 mg 10/02/22 09:00 10/31/22 09:38 Folic Acid 1 Mg Tab PO 11/01/22 08:59 1 mg QAM ASIYA Administration Heparin Sodium (Porcine) 5,000 units 10/01/22 22:00 10/31/22 13:37 Heparin Sod 5,000 Unit/0.5 Ml Vial SQ 10/31/22 21:59 5,000 units Q8 ASIYA Administration Insulin Aspart 0 units 10/01/22 21:00 10/31/22 20:38 Insulin Aspart Per Unit SC 11/06/22 20:59 Not Given ACHS [facility] Protocol Isosorbide Mononitrate 30 mg 10/02/22 09:00 10/31/22 09:39 Isosorbide [place] Extended Rel 30 Mg Tabcr PO 11/01/22 08:59 30 mg QAM ASIYA Administration Levothyroxine Sodium 25 mcg 10/02/22 06:30 10/31/22 06:14 Levothyroxine Sodium 25 Mcg Tablet PO 11/01/22 06:29 25 mcg DAILYBB ASIYA Administration Levothyroxine Sodium 200 mcg 10/02/22 06:30 10/31/22 06:14 Levothyroxine Sodium 200 Mcg Tablet PO 11/01/22 06:29 200 mcg DAILYBB ASIYA Administration Magnesium Oxide 400 mg 10/02/22 09:00 10/31/22 10:29 Magnesium Oxide 400 Mg Tab PO 11/01/22 08:59 400 mg QAM ASIYA Administration Metoprolol Tartrate 12.5 mg 10/01/22 21:00 10/31/22 09:39 Metoprolol Tartrate 25 Mg Tab PO 10/31/22 20:59 12.5 mg BID ASIYA Administration Multivitamins 1 tab 10/02/22 09:00 10/31/22 09:40 Multivitamin Tab PO 11/01/22 08:59 1 tab QAM ASIYA Administration Nystatin 1 appln 10/10/22 21:00 10/31/22 20:36 Nystatin Powder 15gm Btl EXT 11/09/22 20:59 Not Given BID ASIYA Oxycodone HCl 5 mg 10/18/22 13:32 10/31/22 11:45 Oxycodone Hcl Ir 5 Mg Tab (Immediate Release) PO 11/01/22 13:31 5 mg Q6H PRN Administration Pain scale >7 or pre-PT Pantoprazole Sodium 40 mg 10/02/22 06:30 10/31/22 06:14 Pantoprazole 40 Mg Tab PO 11/01/22 06:29 40 mg DAILYBB ASIYA Administration Potassium Chloride 20 meq 10/15/22 10:00 10/31/22 10:29 Potassium Chloride Crtab 20 Meq Tabcr PO 11/14/22 09:59 20 meq QAM ASIYA Administration Spironolactone 25 mg 10/02/22 09:00 10/31/22 09:39 Spironolactone 25 Mg Tab PO 11/01/22 08:59 25 mg QAM ASIYA Administration Topiramate 100 mg 10/27/22 09:00 10/31/22 09:38 Topiramate 100 Mg Tab PO 11/26/22 08:59 100 mg QAM ASIYA Administration Topiramate 200 mg 10/26/22 21:00 10/31/22 20:38 Topiramate 100 Mg Tab PO 11/25/22 20:59 200 mg HS ASIYA Administration Torsemide 20 mg 10/25/22 07:00 10/31/22 06:15 Torsemide 20 Mg Tab PO 11/24/22 06:59 20 mg DAILY@0700 ASIYA Administration Torsemide 20 mg 10/26/22 09:26 10/31/22 10:30 Torsemide 10 Mg Tab PO 11/25/22 16:59 20 mg DAILY@1700 PRN Administration weight gain>2 lbs PG Care Time/CCT Total # of Minutes Spent Total Time Spent with Patient: Total time spent is greater than 50% in coordination of care (as documented) at patient's floor/unit and/or counseling patient: Coding Level of Care Code 20667 Subseq Hosp Care Lvl 1 Diagnoses SOB (shortness of breath) R06.02 Chronic diastolic congestive heart failure I50.32 Atypical chest pain R07.89 Weakness R53.1 Fracture of distal end of right femur S72.401A Hypothyroidism (acquired) E03.9 CKD stage 4 due to type 2 diabetes mellitus E11.22; N18.4 GERD (gastroesophageal reflux disease) K21.9 Insulin-requiring or dependent type II diabetes mellitus E11.9; Z79.4 Anxiety F41.9 Morbid obesity with BMI of 60.0-69.9, adult E66.01; Z68.44
[2022-10-31] MEDS: ATORVASTATIN 40 MG TAB PO SCH (22:13)
[2022-11-01] MEDS: TORSEMIDE 20 MG TAB PO SCH (06:35)
[2022-11-01] MEDS: HEPARIN SOD 5,000 UNIT/0.5 ML VIAL SQ SCH ×3 (06:36→21:12)
[2022-11-01] MEDS: LEVOTHYROXINE SODIUM 25 MCG TABLET PO SCH (06:58)
[2022-11-01] MEDS: PANTOprazole 40 MG TAB PO SCH (06:58)
[2022-11-01] MEDS: LEVOTHYROXINE SODIUM 200 MCG TABLET PO SCH (06:58)
[2022-11-01] MEDS: ALBUT/IPRATROP 3MG/0.5MG NEB 3 ML VIAL NEB SCH ×4 (08:09→19:49)
[2022-11-01] MEDS: POTASSIUM CHLORIDE CRTAB 20 MEQ TABCR PO SCH (08:20)
[2022-11-01] MEDS: METOPROLOL TARTRATE 25 MG TAB PO SCH ×2 (08:21→21:10)
[2022-11-01] MEDS: AZITHROMYCIN 250 MG TAB PO SCH (08:21)
[2022-11-01] MEDS: buPROPion SR 100 MG TABCR PO SCH ×2 (08:22→21:10)
[2022-11-01] MEDS: TOPIRAMATE 100 MG TAB PO SCH ×2 (08:23→21:13)
[2022-11-01] MEDS: BACITRACIN/POLYMYXIN B SULFATE 90 APPLN/28.4 GM TUBE EXT SCH ×2 (08:24→21:12)
[2022-11-01] MEDS: EMPAGLIFLOZIN 10 MG TAB PO SCH (08:24)
[2022-11-01] MEDS: DICLOFENAC SOD 1% GEL 100 GM TUBE EXT PRN (08:25)
[2022-11-01] MEDS: NYSTATIN POWDER 15GM BTL EXT SCH ×2 (08:26→21:07)
[2022-11-01] MEDS: MAGNESIUM OXIDE 400 MG TAB PO SCH (08:28)
[2022-11-01] MEDS: FOLIC ACID 1 MG TAB PO SCH (09:23)
[2022-11-01] MEDS: ISOSORBIDE MONO EXTENDED REL 30 MG TABCR PO SCH (09:23)
[2022-11-01] MEDS: SPIRONOLACTONE 25 MG TAB PO SCH (09:24)
[2022-11-01] MEDS: ASPIRIN 81 MG ECTAB PO SCH (09:24)
[2022-11-01] MEDS: MULTIVITAMIN TAB PO SCH (09:24)
[2022-11-01] MEDS: INSULIN ASPART PER UNIT SC SCH ×2 (09:25→12:34)
[2022-11-01] MEDS: oxyCODONE HCL IR 5 MG TAB (IMMEDIATE RELEASE) PO PRN ×2 (10:02→23:45)
--- NOTE | 2022-11-01 11:03 | Hospitalist Progress Note ---
Date of Service November 01, 2022 Assessment & Plan (1) SOB (shortness of breath): Plan: - Acute on Chronic related to COPD, OHS, RASHAAD, CHF-resolved - continue prn Duonebs and inhalers - continue Guaifenesin 200mg (liq) PO q6 -No longer needs hypertonic saline nebs-discontinued, no chest PT needed Now at baseline and awaiting home health arrangements. (2) Chronic diastolic congestive heart failure: Plan: Acute on chronic HFrEF-resolved - noted 15kg weight gain since 09/09 on admission--> weight down somewhat now after received some IV diuresis early on, but not back to baseline weight - echo 2020 EF 55-60%, repeat echo here--EF 45-50% but otherwise no significant changes from prior exam - continue torsemide 20 mg daily and add on a prn dose in the afternoon--> she declines to take extra afternoon dose in the hospital due to difficulty getting to the bathroom quickly. She says she'll take the extra dose when she gets home -continue spironolactone, metoprolol, isosorbide mononitrate, ASA, atorvastatin - ordered daily weights and I/O monitoring, okay to discontinue heart healthy diet as patient requests vaughn for breakfast-warned not to eat this daily - has been treated for a/c diastolic chf exacerbation intermittently with doses of IV Lasix --> appears compensated at this point but still not at dry weight - Continue Jardiance 10mg daily- helps that she is also diabetic. (3) Atypical chest pain: Plan: related to acute HFpEF as above-resolved - Troponin negative x2 - CXR:No acute chest disease. Cardiomegaly is noted. - EKG: unchanged from previous - No further c/o CP after diuresis now on med/surg (4) Weakness: Plan: - Related to morbid obesity and chronic R femur fx with nonunion-on oxycodone as needed and Tylenol - PT/OT as often as possible - Case management for complex dc issues (5) Fracture of distal end of right femur: Plan: - Chronic, NWB to RLE - PT/OT - Pain control -- continue OxyIR prn plus Tylenol - Continue APAP as needed for mild to moderate pain (6) Hypothyroidism (acquired): Plan: - Continue Levothyroxine, recent increased from 200mcg daily to 225mcg in mid Aug for elevated TSH TSH repeated on 10/22 and is now normal at 1.1 (7) CKD stage 4 due to type 2 diabetes mellitus: Plan: (baseline creatinine 1.3-1.8) Most recent creatinine at baseline at 1.59 -Avoid nephrotoxins -renally dose meds when appropriate -follow BMP periodically (8) GERD (gastroesophageal reflux disease): Plan: - Continue protonix (9) Insulin-requiring or dependent type II diabetes mellitus: Plan: continue Lantus and Novolog, high doses adequate control-transition to Lantus starting today, with home insulin pump per pharmacy as the patient says she will be ready to go home on . Equipment ready(has been in a jail since March of this year now going to stay with her daughter) Continue Jardiance last HgbA1C 9.4% in 07/2022-now hemoglobin A1c on 10/22 down to 7.2% SHe has an insulin pump at home but has not used it since March 2022 when she first went into the hospital, SHe is interested in restarting this upon return to home. She will have her daughter bring in her pump from home and I have asked Glycemic control Pharmacist and in turn, the Splash Line Operator to assist with getting her pump settings appropriate and functioning prior to discharge -f/u with Endocrine after discharge Insulin pump obtained from home. Diabetes nurse Penny transitioning her to Lantus and insulin properly resumed at discharge. (10) Anxiety: Plan: - continue bupropion (11) Morbid obesity with BMI of 60.0-69.9, adult: Plan: - weight loss advised given that it is the root cause of many of her medical issues- needs to be addressed - and must speak w PCP -resumes care with this PCP after March now that patient is going to be at home. I told the patient there are several drug options for weight loss now. Her Topamax is not prescribed for weight loss Plan ADLs: Quite independent except for transfers. Case management consult for complex dc needs. stable for home once set up with home modifications to her home are done which are ongoing through her insurance. She is declining SNF. If her caregivers that are being arranged are available prior to home modifications being done, she can return home. She is agreeable to this. Flu shot ordered and COVID booster given 10/28 There is some ramp reconstruction going on at home and the patient insists on returning home with daughter. That is delayed discharge. The patient has been in hospital now for almost a month. 10/30 Patient says home will be ready for her on Tuesday Admission and Anticipated Discharge Date Admission Date: October 01, 2022 Physical Exam Physical Exam: Severely obese pleasant lady, oneill facies, transfer help with moving from bed to chair and got quite short of breath. Recovered within minutes. Cheerful and alert, watching a [employer] program on television Head and neck tracheostomy collar on, diffuse fine facial hair most prominently on chin Chest diminished entry breath sounds bilaterally Abdomen still obese nontender Trace edema pretibial Normal insight and judgment Results & Data Results & Data ([facility]) Vital Signs (Past 12 Hours) Vital Signs Temp Pulse Pulse Resp BP Pulse Ox O2 Del Method 11/01/22 08:12 84 18 94 Room Air 11/01/22 07:52 Trach Collar 11/01/22 07:26 36.5 C 73 18 117/69 96 Room Air 11/01/22 06:11 73 18 124/65 94 Room Air Medications Administered Home Medications Medication Instructions Recorded Confirmed Last Taken aspirin 81 mg tablet,delayed 81 mg PO QAM 04/06/19 10/01/22 10/01/22 release (Robert Low Dose Aspirin) bupropion HCl 100 mg tablet,12 hr See Rx Instructions .Route .COMPLEX 04/06/19 10/01/22 10/01/22 08:00 sustained-release metoprolol tartrate 25 mg tablet 12.5 mg PO BID 04/06/19 10/01/22 10/01/22 08:00 multivitamin 1 tab PO QAM 04/06/19 10/01/22 10/01/22 pantoprazole 40 mg tablet,delayed 40 mg PO DAILYBB 04/06/19 10/01/22 10/01/22 release spironolactone 25 mg tablet 25 mg PO QAM 04/06/19 10/01/22 10/01/22 topiramate 100 mg tablet 100 mg PO BID 04/06/19 10/01/22 10/01/22 09:00 Oxygen Home #1 ea 06/28/19 03/22/22 Unknown nitroglycerin 0.4 mg sublingual 0.4 mg sublingual DIRECTED PRN 06/28/19 10/01/22 10/01/22 14:05 tablet Chest Pain nebulizers #1 ea 12/24/20 10/04/22 Unknown betamethasone dipropionate 0.05 % 1 applic topical BID PRN Skin 02/27/21 10/01/22 Unknown topical cream Irritation ipratropium 0.5 mg-albuterol 3 mg 3 ml inhalation Q4H PRN COUGHING, 02/27/21 10/01/22 07/24/22 (2.5 mg base)/3 mL nebulization WHEEZING, SHORTNESS OF BREATH soln folic acid 1 mg tablet 1 mg PO QAM #0 tabs 04/19/21 10/01/22 10/01/22 blood sugar diagnostic (Contour #[phone] ea 09/29/21 10/04/22 Unknown Next Test Strips) albuterol sulfate 90 mcg/actuation 2 puff inhalation Q4 PRN Shortness 11/25/21 10/01/22 Unknown aerosol inhaler Of Breath atorvastatin 40 mg tablet 40 mg PO QPM #90 tabs 01/14/22 10/01/22 09/30/22 acetaminophen 500 mg tablet 500 mg PO QPM 03/23/22 10/01/22 09/30/22 (Tylenol Extra Strength) acidophilus 100 million 1 cap PO QAM 03/23/22 10/01/22 10/01/22 cell-pectin, citrus 10 mg capsule torsemide 10 mg tablet 10 mg PO BID 07/24/22 10/01/22 10/01/22 07:00 insulin glargine 100 unit/mL (3 80 unit (0.8 mL) subcut BID #48 mL 09/07/22 10/01/22 10/01/22 08:00 mL) subcutaneous pen isosorbide mononitrate 30 mg 30 mg PO QAM #30 tabs 09/07/22 10/01/22 10/01/22 tablet,extended release 24 hr oxycodone 5 mg tablet 10 mg PO Q8H PRN pain #10 tabs 09/07/22 10/01/22 10/01/22 08:22 acetaminophen 325 mg tablet 650 mg PO Q6H PRN FEVER/PAIN 10/01/22 10/01/22 Unknown (Tylenol) docusate sodium 100 mg capsule 100 mg PO BID 10/01/22 10/01/22 10/01/22 08:00 insulin lispro 100 unit/mL 1 sliding scale dose subcut 10/01/22 10/01/22 10/01/22 11:30 subcutaneous pen (Humalog KwikPen USEASDIRECTD 2 UNITS (U-100) Insulin) ipratropium 20 mcg-albuterol 100 1 puff inhalation QID 10/01/22 10/01/22 10/01/22 12:00 mcg/actuation mist for inhalation (Combivent Respimat) levothyroxine 200 mcg tablet 200 mcg PO DAILYBB 10/01/22 10/01/22 10/01/22 levothyroxine 25 mcg tablet 25 mcg PO DAILYBB 10/01/22 10/01/22 10/01/22 magnesium oxide 400 mg PO QAM 10/01/22 10/01/22 10/01/22 potassium chloride 20 mEq 20 meq PO BID 10/01/22 10/01/22 10/01/22 08:00 tablet,extended release sulfamethoxazole 800 1 tab PO BID 10/01/22 10/01/22 10/01/22 08:00 mg-trimethoprim 160 mg tablet (Bactrim DS) Active Medications Generic Name Dose Route Start Last Admin Trade Name Alyx PRN Reason Stop Dose Admin Albuterol 3 ml 10/07/22 07:00 11/01/22 08:09 Albut/Ipratrop 3mg/0.5mg Neb 3 Ml Vial NEB 11/06/22 06:59 3 ml QIDR ASIYA Administration Protocol Albuterol 3 ml 10/06/22 21:59 10/27/22 19:53 Albut/Ipratrop 3mg/0.5mg Neb 3 Ml Vial NEB 11/05/22 21:58 3 ml Q2R PRN Administration Shortness Of Breath Or Wheezing Protocol Aspirin 81 mg 10/02/22 09:00 11/01/22 09:24 Aspirin 81 Mg Ectab PO 12/02/22 08:59 81 mg QAM ASIYA Administration Atorvastatin Calcium 40 mg 10/31/22 21:20 10/31/22 22:13 Atorvastatin 40 Mg Tab PO 11/30/22 21:19 40 mg QPM ASIYA Administration Azithromycin 250 mg 10/27/22 09:00 11/01/22 08:21 Azithromycin 250 Mg Tab PO 11/26/22 08:59 250 mg MoWeFr ASIYA Administration Bacitracin/Polymyxin B Sulfate 1 appln 10/11/22 10:00 11/01/22 08:24 Bacitracin/Polymyxin B Sulfate 90 Appln/28.4 Gm Tube EXT 11/10/22 09:59 1 appln BID ASIYA Administration Bupropion HCl 100 mg 10/02/22 09:00 11/01/22 08:22 Bupropion Sr 100 Mg Tabcr PO 12/02/22 08:59 100 mg QAM ASIYA Administration Bupropion HCl 200 mg 10/01/22 22:00 10/31/22 20:37 Bupropion Sr 100 Mg Tabcr PO 12/02/22 21:59 200 mg PM ASIYA Administration Diclofenac Sodium 2 gm 10/21/22 23:26 11/01/22 08:25 Diclofenac Sod 1% Gel 100 Gm Tube EXT 11/21/22 08:59 2 gm BID PRN Administration joint pain Protocol Empagliflozin 10 mg 10/13/22 09:00 11/01/22 08:24 Empagliflozin 10 Mg Tab PO 11/12/22 08:59 10 mg QAM ASIYA Administration Folic Acid 1 mg 10/02/22 09:00 11/01/22 09:23 Folic Acid 1 Mg Tab PO 12/02/22 08:59 1 mg QAM ASIYA Administration Heparin Sodium (Porcine) 5,000 units 10/01/22 22:00 11/01/22 06:36 Heparin Sod 5,000 Unit/0.5 Ml Vial SQ 12/02/22 21:59 5,000 units Q8 ASIYA Administration Insulin Aspart 0 units 10/01/22 21:00 11/01/22 09:25 Insulin Aspart Per Unit SC 11/06/22 20:59 16 units ACHS ASIYA Administration Protocol Isosorbide Mononitrate 30 mg 10/02/22 09:00 11/01/22 09:23 Isosorbide [place] Extended Rel 30 Mg Tabcr PO 12/02/22 08:59 30 mg QAM ASIYA Administration Levothyroxine Sodium 25 mcg 10/02/22 06:30 11/01/22 06:58 Levothyroxine Sodium 25 Mcg Tablet PO 12/02/22 06:29 25 mcg DAILYBB ASIYA Administration Levothyroxine Sodium 200 mcg 10/02/22 06:30 11/01/22 06:58 Levothyroxine Sodium 200 Mcg Tablet PO 12/02/22 06:29 200 mcg DAILYBB ASIYA Administration Magnesium Oxide 400 mg 10/02/22 09:00 11/01/22 08:28 Magnesium Oxide 400 Mg Tab PO 12/02/22 08:59 400 mg QAM ASIYA Administration Metoprolol Tartrate 12.5 mg 10/31/22 22:00 11/01/22 08:21 Metoprolol Tartrate 25 Mg Tab PO 11/30/22 21:59 12.5 mg BID ASIYA Administration Multivitamins 1 tab 10/02/22 09:00 11/01/22 09:24 Multivitamin Tab PO 12/02/22 08:59 1 tab QAM ASIYA Administration Nystatin 1 appln 10/10/22 21:00 11/01/22 08:26 Nystatin Powder 15gm Btl EXT 11/09/22 20:59 1 appln BID ASIYA Administration Oxycodone HCl 5 mg 10/18/22 13:32 11/01/22 10:02 Oxycodone Hcl Ir 5 Mg Tab (Immediate Release) PO 12/02/22 13:31 5 mg Q6H PRN Administration Pain scale >7 or pre-PT Pantoprazole Sodium 40 mg 10/02/22 06:30 11/01/22 06:58 Pantoprazole 40 Mg Tab PO 12/02/22 06:29 40 mg DAILYBB ASIYA Administration Potassium Chloride 20 meq 10/15/22 10:00 11/01/22 08:20 Potassium Chloride Crtab 20 Meq Tabcr PO 11/14/22 09:59 20 meq QAM SAIYA Administration Spironolactone 25 mg 10/02/22 09:00 11/01/22 09:24 Spironolactone 25 Mg Tab PO 12/02/22 08:59 25 mg QAM ASIYA Administration Topiramate 100 mg 10/27/22 09:00 11/01/22 08:23 Topiramate 100 Mg Tab PO 11/26/22 08:59 100 mg QAM ASIYA Administration Topiramate 200 mg 10/26/22 21:00 10/31/22 20:38 Topiramate 100 Mg Tab PO 11/25/22 20:59 200 mg HS ASIYA Administration Torsemide 20 mg 10/25/22 07:00 11/01/22 06:35 Torsemide 20 Mg Tab PO 11/24/22 06:59 20 mg DAILY@0700 ASIYA Administration Torsemide 20 mg 10/26/22 09:26 10/31/22 10:30 Torsemide 10 Mg Tab PO 11/25/22 16:59 20 mg DAILY@1700 PRN Administration weight gain>2 lbs PG Care Time/CCT Total # of Minutes Spent Total Time Spent with Patient: Total time spent is greater than 50% in coordination of care (as documented) at patient's floor/unit and/or counseling patient: Coding Level of Care Code 72351 Subseq Hosp Care Lvl 2 Diagnoses SOB (shortness of breath) R06.02 Chronic diastolic congestive heart failure I50.32 Atypical chest pain R07.89 Weakness R53.1 Fracture of distal end of right femur S72.401A Hypothyroidism (acquired) E03.9 CKD stage 4 due to type 2 diabetes mellitus E11.22; N18.4 GERD (gastroesophageal reflux disease) K21.9 Insulin-requiring or dependent type II diabetes mellitus E11.9; Z79.4 Anxiety F41.9 Morbid obesity with BMI of 60.0-69.9, adult E66.01; Z68.44
[2022-11-01] MEDS: ACETAMINOPHEN 325 MG TAB PO PRN (12:32)
[2022-11-01] MEDS ORDERED: INSULIN ASPART 100 UNITS/ML VIAL SC PRN (14:30)
--- NOTE | 2022-11-01 14:39 | Pharmacy Report ---
Pharmacy Glycemic Short Note 2 - Date of Service November 01, 2022 - Glycemic Short BSG Results (Last 24 hours): 10/31/22 10/31/22 11/01/22 17:20 20:29 08:19 POC Glucose 148 H 94 120 H 11/01/22 12:11 POC Glucose 151 H OUTPATIENT ANTIDIABETIC REGIMEN: * Lantus 80 units SC BID * Humalog scale * HbA1C = 8.9% (07/25/22) ASSESSMENT: 11/01: * Patient received total of 268 units of insulin yesterday, of which 140 units were basal insulin. Evening Lantus dose last night given earlier so that we can transition back to insulin pump this afternoon. Plan to have patient start insulin pump at ~1500 today. Went and spoke with patient and she feels comfortable with attaching her insulin pump and managing it herself. She reports she has all the supplies for the pump. Will add some overnight BSG checks to ensure stable. 10/30: * BSGs remain well-controlled on current regimen - will continue current regimen, but will give evening dose of Lantus w/ dinner in preparation for possible transition to insulin pump tomorrow morning. Will need to reassess appropriateness of this plan tomorrow morning. 10/29: * Patient received a total of 259 units of insulin; 140 units were basal insulin * FBSG is 148 today. Will continue the same basal dose * development educator met with patient to review pump settings. Plan is to transition to once daily basal insulin over the weekend. Plan to re-attach pump on Tuesday (educator is aware of plan) with tentative discharge on Sunday 10/28: * Patient received total 257 units of insulin yesterday; 140 units basal and 117 units bolus. * BSGs have been well controlled on this dosing. Continued the same. * Plan is for patient to have her daughter bring in pump supplies to resume her pump before discharge. When I called this morning, supplies have not been brought in yet. 10/26/22 * Ms Connelly has been requiring ~180 units of insulin per day, with stable glycemic control for the past few days. She is also receiving Jardiance 10mg daily. * Pt would like to go back to using her insulin pump after discharge. RN has spoken with patient, and she will arrange for her daughter to bring her pump supplies into the hospital prior to discharge. * Ideally, we will be able to make this transition prior to discharge to ensure that pump is working adequately/safely prior to return home. * CDE has also been consulted to assist with transition. PLAN FOR INPATIENT GLYCEMIC CONTROL: * Jardiance 10 mg PO AM * Resume home insulin pump this afternoon
[2022-11-01] MEDS ORDERED: GLUCOSE 10 TAB/TUBE PO PRN (14:45)
[2022-11-01] MEDS ORDERED: DEXTROSE 50% 50 ML SYRINGE IV PRN (14:45)
[2022-11-01] MEDS ORDERED: GLUCAGON FOR INJ 1 MG VIAL IM PRN (14:45)
[2022-11-01] MEDS ORDERED: GLUCOSE 40% GEL 15 GM TUBE PO PRN (14:45)
[2022-11-01] MEDS ORDERED: CARBOHYDRATES FOR HYPOGLYCEMIA PO PRN (14:45)
[2022-11-01] MEDS: INSULIN, Rapid-Acting PUMP SCH ×4 (14:55→23:55)
[2022-11-01] MEDS: ATORVASTATIN 40 MG TAB PO SCH (21:09)
[2022-11-02] MEDS: INSULIN, Rapid-Acting PUMP SCH ×5 (04:00→21:30)
[2022-11-02] MEDS: HEPARIN SOD 5,000 UNIT/0.5 ML VIAL SQ SCH ×3 (05:02→21:22)
[2022-11-02] MEDS: LEVOTHYROXINE SODIUM 25 MCG TABLET PO SCH (05:02)
[2022-11-02] MEDS: LEVOTHYROXINE SODIUM 200 MCG TABLET PO SCH (05:02)
[2022-11-02] MEDS: PANTOprazole 40 MG TAB PO SCH (05:07)
[2022-11-02] MEDS: TORSEMIDE 20 MG TAB PO SCH ×2 (06:30→14:40)
[2022-11-02] MEDS: ALBUT/IPRATROP 3MG/0.5MG NEB 3 ML VIAL NEB SCH ×4 (07:17→19:27)
[2022-11-02] MEDS: EMPAGLIFLOZIN 10 MG TAB PO SCH (08:56)
[2022-11-02] MEDS: buPROPion SR 100 MG TABCR PO SCH ×2 (08:57→21:28)
[2022-11-02] MEDS: MAGNESIUM OXIDE 400 MG TAB PO SCH (08:57)
[2022-11-02] MEDS: SPIRONOLACTONE 25 MG TAB PO SCH ×2 (08:58→14:40)
[2022-11-02] MEDS: FOLIC ACID 1 MG TAB PO SCH (08:58)
[2022-11-02] MEDS: MULTIVITAMIN TAB PO SCH (08:58)
[2022-11-02] MEDS: METOPROLOL TARTRATE 25 MG TAB PO SCH ×2 (08:59→21:26)
[2022-11-02] MEDS: ISOSORBIDE MONO EXTENDED REL 30 MG TABCR PO SCH (08:59)
[2022-11-02] MEDS: ASPIRIN 81 MG ECTAB PO SCH (09:00)
[2022-11-02] MEDS: POTASSIUM CHLORIDE CRTAB 20 MEQ TABCR PO SCH (09:00)
[2022-11-02] MEDS: TOPIRAMATE 100 MG TAB PO SCH ×2 (09:01→21:25)
[2022-11-02] MEDS: NYSTATIN POWDER 15GM BTL EXT SCH ×2 (09:02→21:29)
[2022-11-02] MEDS: BACITRACIN/POLYMYXIN B SULFATE 90 APPLN/28.4 GM TUBE EXT SCH ×2 (09:02→21:24)
[2022-11-02] MEDS: oxyCODONE HCL IR 5 MG TAB (IMMEDIATE RELEASE) PO PRN (14:42)
[2022-11-02] MEDS: ACETAMINOPHEN 325 MG TAB PO PRN (14:42)
--- NOTE | 2022-11-02 15:27 | Hospitalist Progress Note ---
Date of Service November 02, 2022 Assessment & Plan (1) SOB (shortness of breath): Plan: Acute on Chronic related to COPD, OHS, RASHAAD, CHF. 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 Continue prn Duonebs and inhalers. Hypertonic saline nebs have been discontinued, no chest PT needed. Now at baseline and awaiting home health arrangements. (2) Chronic diastolic congestive heart failure: Plan: Acute on chronic combined systolic and diastolic CHF. Most recent ejection fraction 45%. Now back to baseline. Received some IV diuresis early on. Continue torsemide 20 mg daily and add on a prn dose in the afternoon--> she declines to take extra afternoon dose in the hospital due to difficulty getting to the bathroom quickly. She says she'll take the extra dose when she gets home. Continue spironolactone, metoprolol, isosorbide mononitrate, ASA, atorvastatin. Limit salt intake. (3) Atypical chest pain: Plan: related to acute HFpEF as above-resolved. No evidence of acute coronary syndrome. (4) Weakness: Plan: - Related to morbid obesity and chronic R femur fx with nonunion. On oxycodone as needed and Tylenol. PT/OT as often as possible - Case management for complex dc issues (5) Fracture of distal end of right femur: Plan: Chronic nonunion of fracture. NWB to RLE. Continue PT/OT. Pain control measures (6) Hypothyroidism (acquired): Plan: Continue Levothyroxine, recent increased from 200mcg daily to 225mcg in mid Aug for elevated TSH. TSH repeated on 10/22 and is now normal at 1.1 (7) CKD stage 4 due to type 2 diabetes mellitus: Plan: (baseline creatinine 1.3-1.8). Monitor intake and output. Serial labs. Avoid nephrotoxins. (8) GERD (gastroesophageal reflux disease): Plan: Treated with protonix (9) Insulin-requiring or dependent type II diabetes mellitus: Plan: ADA diet. Now on an insulin pump. Continue Jardiance. Hemoglobin A1c on 10/22 down to 7.2%. f/u with Endocrinology after discharge. (10) Anxiety: Plan: Stable on bupropion (11) Morbid obesity with BMI of 60.0-69.9, adult: Plan: Markedly elevated BMI. Weight loss advised Plan Anticipate eventual discharge to home with [facility] assistance when arrangements are finalized. Admission and Anticipated Discharge Date Admission Date: October 01, 2022 Subjective Alert and oriented. She is upset that she is not going home today. A prescription was written for a portable temporary wheelchair ramp for her home. Apparently [facility] cannot provide 90 hours of caregivers which she is requ esting at discharge. Review of Systems Review of Systems: Constitutional-no fever or chills ENT-no blurred vision, no double vision, no epistaxis, no sore throat Respiratory-no cough, no wheezing. Shortness of breath with exertion Cardiac-no palpitations, no chest pain, no syncope GI-no nausea, vomiting, diarrhea, melena, hematochezia -no urinary retention, no urinary incontinence, no dysuria, no hematuria Musculoskeletal-no joint pain, no muscle tenderness Skin-no bruising, no rashes, no pruritus Neuro-no isolated weakness, no paresthesia, no weakness Psych-no depression, no anxiety Physical Exam Physical Exam: General-alert and oriented x3, no fevers, no chills. Morbidly obese HEENT-head atraumatic and normocephalic, pupils equal and reactive to light, extraocular muscles intact Neck-no lymphadenopathy or thyromegaly, trachea midline Chest-diminished breath sounds bilaterally. No rales, wheezing or rhonchi Cardiac-regular rate and rhythm, normal S1 and S2, no murmurs Abdomen-normal bowel sounds, nontender, no hepatosplenomegaly Extremities-chronic bilateral lower extremity edema noted. Neuro-cranial nerves II through XII intact, motor and sensory function within normal limits, strength symmetrical , no focal deficits Psych-somewhat depressed affect Results & Data Results & Data ([facility]) Vital Signs (Past 12 Hours) Vital Signs Temp Pulse Pulse Resp BP Pulse Ox O2 Del Method 11/02/22 14:06 36.7 C 74 18 115/74 95 Room Air 11/02/22 11:36 77 18 96 Room Air 11/02/22 07:29 36.7 C 71 18 124/56 L 93 Room Air 11/02/22 07:29 Trach Collar 11/02/22 07:17 75 18 97 Room Air Laboratory Results 10/22/22 09:59 10/22/22 09:59 PG Care Time/CCT Total # of Minutes Spent Total Time Spent with Patient: Total time spent is greater than 50% in coordination of care (as documented) at patient's floor/unit and/or counseling patient: Coding Level of Care Code 13601 Subseq Hosp Care Lvl 3 Diagnoses SOB (shortness of breath) R06.02 Chronic diastolic congestive heart failure I50.32 Atypical chest pain R07.89 Weakness R53.1 Fracture of distal end of right femur S72.401A Hypothyroidism (acquired) E03.9 CKD stage 4 due to type 2 diabetes mellitus E11.22; N18.4 GERD (gastroesophageal reflux disease) K21.9 Insulin-requiring or dependent type II diabetes mellitus E11.9; Z79.4 Anxiety F41.9 Morbid obesity with BMI of 60.0-69.9, adult E66.01; Z68.44
[2022-11-02] MEDS: ATORVASTATIN 40 MG TAB PO SCH (21:27)
[2022-11-03] MEDS: LEVOTHYROXINE SODIUM 25 MCG TABLET PO SCH (06:22)
[2022-11-03] MEDS: HEPARIN SOD 5,000 UNIT/0.5 ML VIAL SQ SCH ×3 (06:22→20:57)
[2022-11-03] MEDS: LEVOTHYROXINE SODIUM 200 MCG TABLET PO SCH (06:22)
[2022-11-03] MEDS: PANTOprazole 40 MG TAB PO SCH (06:22)
[2022-11-03] MEDS: ALBUT/IPRATROP 3MG/0.5MG NEB 3 ML VIAL NEB SCH ×4 (07:57→19:40)
[2022-11-03] MEDS: buPROPion SR 100 MG TABCR PO SCH ×2 (08:27→20:56)
[2022-11-03] MEDS: FOLIC ACID 1 MG TAB PO SCH (08:28)
[2022-11-03] MEDS: EMPAGLIFLOZIN 10 MG TAB PO SCH (08:28)
[2022-11-03] MEDS: TORSEMIDE 20 MG TAB PO SCH (08:28)
[2022-11-03] MEDS: AZITHROMYCIN 250 MG TAB PO SCH (08:29)
[2022-11-03] MEDS: ISOSORBIDE MONO EXTENDED REL 30 MG TABCR PO SCH (08:29)
[2022-11-03] MEDS: POTASSIUM CHLORIDE CRTAB 20 MEQ TABCR PO SCH (08:30)
[2022-11-03] MEDS: MAGNESIUM OXIDE 400 MG TAB PO SCH (08:30)
[2022-11-03] MEDS: SPIRONOLACTONE 25 MG TAB PO SCH (08:30)
[2022-11-03] MEDS: ASPIRIN 81 MG ECTAB PO SCH (08:31)
[2022-11-03] MEDS: MULTIVITAMIN TAB PO SCH (08:31)
[2022-11-03] MEDS: NYSTATIN POWDER 15GM BTL EXT SCH ×2 (08:32→20:50)
[2022-11-03] MEDS: INSULIN, Rapid-Acting PUMP SCH ×4 (09:25→21:00)
[2022-11-03] MEDS: TOPIRAMATE 100 MG TAB PO SCH ×2 (10:14→20:55)
[2022-11-03] MEDS: BACITRACIN/POLYMYXIN B SULFATE 90 APPLN/28.4 GM TUBE EXT SCH ×2 (10:14→20:56)
[2022-11-03] MEDS: DOCUSATE SODIUM 100 MG CAP PO SCH ×2 (10:14→20:55)
[2022-11-03] MEDS: METOPROLOL TARTRATE 25 MG TAB PO SCH ×2 (10:14→20:54)
--- NOTE | 2022-11-03 12:05 | Hospitalist Progress Note ---
Date of Service November 03, 2022 Assessment & Plan (1) SOB (shortness of breath): Plan: Acute on Chronic related to COPD, OHS, RASHAAD, CHF. 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 Continue prn Duonebs and inhalers. Hypertonic saline nebs have been discontinued, no chest PT needed. Now at baseline and awaiting home health arrangements. (2) Chronic diastolic congestive heart failure: Plan: Acute on chronic combined systolic and diastolic CHF. Most recent ejection fraction 45%. Now back to baseline. Received some IV diuresis early on. Continue torsemide 20 mg daily and add on a prn dose in the afternoon--> she declines to take extra afternoon dose in the hospital due to difficulty getting to the bathroom quickly. She says she'll take the extra dose when she gets home. Continue spironolactone, metoprolol, isosorbide mononitrate, ASA, atorvastatin. Limit salt intake. (3) Atypical chest pain: Plan: related to acute HFpEF as above-resolved. No evidence of acute coronary syndrome. (4) Weakness: Plan: - Related to morbid obesity and chronic R femur fx with nonunion. On oxycodone as needed and Tylenol. PT/OT as often as possible - Case management for complex dc issues (5) Fracture of distal end of right femur: Plan: Chronic nonunion of fracture. NWB to RLE. Continue PT/OT. Pain control measures (6) Hypothyroidism (acquired): Plan: Continue Levothyroxine, recent increased from 200mcg daily to 225mcg in mid Aug for elevated TSH. TSH repeated on 10/22 and is now normal at 1.1 (7) CKD stage 4 due to type 2 diabetes mellitus: Plan: (baseline creatinine 1.3-1.8). Monitor intake and output. Serial labs. Avoid nephrotoxins. (8) GERD (gastroesophageal reflux disease): Plan: Treated with protonix (9) Insulin-requiring or dependent type II diabetes mellitus: Plan: ADA diet. Now on an insulin pump. Continue Jardiance. Hemoglobin A1c on 10/22 down to 7.2%. f/u with Endocrinology after discharge. (10) Anxiety: Plan: Stable on bupropion (11) Morbid obesity with BMI of 60.0-69.9, adult: Plan: Markedly elevated BMI. Weight loss advised (12) Congestive heart failure: Plan: Acute on chronic combined systolic/diastolic CHF. Most recent ejection fraction 45%. Now resolved with diuresis. Continue current medication therapy Plan Anticipate eventual discharge to home with [facility] [employer] assistance when arrangements are finalized. Admission and Anticipated Discharge Date Admission Date: October 01, 2022 Subjective Alert and oriented. No distress. No new complaints. Review of Systems Review of Systems: Constitutional-no fever or chills ENT-no blurred vision, no double vision, no epistaxis, no sore throat Respiratory-no cough, no wheezing. Shortness of breath with exertion Cardiac-no palpitations, no chest pain, no syncope GI-no nausea, vomiting, diarrhea, melena, hematochezia -no urinary retention, no urinary incontinence, no dysuria, no hematuria Musculoskeletal-no joint pain, no muscle tenderness Skin-no bruising, no rashes, no pruritus Neuro-no isolated weakness, no paresthesia, no weakness Psych-no depression, no anxiety Physical Exam Physical Exam: General-alert and oriented x3, no fevers, no chills. Morbidly obese HEENT-head atraumatic and normocephalic, pupils equal and reactive to light, extraocular muscles intact. Neck-no lymphadenopathy or thyromegaly, trachea midline. Permanent tracheostomy present Chest-diminished breath sounds bilaterally. No rales, wheezing or rhonchi Cardiac-regular rate and rhythm, normal S1 and S2, no murmurs Abdomen-normal bowel sounds, nontender, no hepatosplenomegaly Extremities-chronic bilateral lower extremity edema noted. Neuro-cranial nerves II through XII intact, motor and sensory function within normal limits, strength symmetrical , no focal deficits Psych-somewhat depressed affect Results & Data Results & Data ([facility]) Vital Signs (Past 12 Hours) Vital Signs Temp Pulse Resp BP Pulse Ox O2 Del Method 11/03/22 11:46 76 18 96 Room Air 11/03/22 07:58 70 18 97 Room Air 11/03/22 07:23 Room Air, Trach Collar 11/03/22 07:21 36.5 C 70 18 121/70 94 Room Air, Trach Collar Laboratory Results 10/22/22 09:59 10/22/22 09:59 PG Care Time/CCT Total # of Minutes Spent Total Time Spent with Patient: Total time spent is greater than 50% in coordination of care (as documented) at patient's floor/unit and/or counseling patient: Coding Level of Care Code 50570 Subseq Hosp Care Lvl 2 Diagnoses SOB (shortness of breath) R06.02 Chronic diastolic congestive heart failure I50.32 Atypical chest pain R07.89 Weakness R53.1 Fracture of distal end of right femur S72.401A Hypothyroidism (acquired) E03.9 CKD stage 4 due to type 2 diabetes mellitus E11.22; N18.4 GERD (gastroesophageal reflux disease) K21.9 Insulin-requiring or dependent type II diabetes mellitus E11.9; Z79.4 Anxiety F41.9 Morbid obesity with BMI of 60.0-69.9, adult E66.01; Z68.44 Congestive heart failure I50.9
[2022-11-03] MEDS: ACETAMINOPHEN 325 MG TAB PO PRN (13:23)
[2022-11-03] MEDS: oxyCODONE HCL IR 5 MG TAB (IMMEDIATE RELEASE) PO PRN (13:23)
[2022-11-03] MEDS: ATORVASTATIN 40 MG TAB PO SCH (20:54)
[2022-11-04] MEDS: HEPARIN SOD 5,000 UNIT/0.5 ML VIAL SQ SCH ×3 (06:06→21:16)
[2022-11-04] MEDS: PANTOprazole 40 MG TAB PO SCH (06:06)
[2022-11-04] MEDS: LEVOTHYROXINE SODIUM 200 MCG TABLET PO SCH (06:08)
[2022-11-04] MEDS: LEVOTHYROXINE SODIUM 25 MCG TABLET PO SCH (06:08)
[2022-11-04] MEDS: TORSEMIDE 20 MG TAB PO SCH (06:10)
[2022-11-04] MEDS: ALBUT/IPRATROP 3MG/0.5MG NEB 3 ML VIAL NEB SCH ×4 (07:44→20:21)
[2022-11-04] MEDS: INSULIN, Rapid-Acting PUMP SCH ×4 (10:09→21:00)
[2022-11-04] MEDS: MULTIVITAMIN TAB PO SCH (10:10)
[2022-11-04] MEDS: SPIRONOLACTONE 25 MG TAB PO SCH (10:10)
[2022-11-04] MEDS: ASPIRIN 81 MG ECTAB PO SCH (10:11)
[2022-11-04] MEDS: METOPROLOL TARTRATE 25 MG TAB PO SCH ×2 (10:11→21:14)
[2022-11-04] MEDS: TOPIRAMATE 100 MG TAB PO SCH ×2 (10:12→21:15)
[2022-11-04] MEDS: buPROPion SR 100 MG TABCR PO SCH ×2 (10:12→21:11)
[2022-11-04] MEDS: POTASSIUM CHLORIDE CRTAB 20 MEQ TABCR PO SCH (10:13)
[2022-11-04] MEDS: DOCUSATE SODIUM 100 MG CAP PO SCH ×2 (10:13→21:11)
[2022-11-04] MEDS: ISOSORBIDE MONO EXTENDED REL 30 MG TABCR PO SCH (10:13)
[2022-11-04] MEDS: MAGNESIUM OXIDE 400 MG TAB PO SCH (10:14)
[2022-11-04] MEDS: FOLIC ACID 1 MG TAB PO SCH (10:14)
[2022-11-04] MEDS: EMPAGLIFLOZIN 10 MG TAB PO SCH (10:15)
[2022-11-04] MEDS: BACITRACIN/POLYMYXIN B SULFATE 90 APPLN/28.4 GM TUBE EXT SCH ×2 (10:15→21:10)
[2022-11-04] MEDS: NYSTATIN POWDER 15GM BTL EXT SCH ×2 (10:20→21:10)
--- NOTE | 2022-11-04 13:20 | Hospitalist Progress Note ---
Date of Service November 04, 2022 Assessment & Plan (1) SOB (shortness of breath): Plan: Acute on Chronic related to COPD, OHS, RASHAAD, CHF. Now resolved and back to baseline. Continue prn Duonebs and inhalers. Hypertonic saline nebs have been discontinued, no chest PT needed. Now at baseline and awaiting home health arrangements. (2) Chronic diastolic congestive heart failure: Plan: Acute on chronic combined systolic and diastolic CHF. Most recent ejection fraction 45%. Now back to baseline. Received some IV diuresis early on. Continue torsemide 20 mg daily and add on a prn dose in the afternoon--> she declines to take extra afternoon dose in the hospital due to difficulty getting to the bathroom quickly. She says she'll take the extra dose when she gets home. Continue spironolactone, metoprolol, isosorbide mononitrate, ASA, atorvastatin. Limit salt intake. (3) Atypical chest pain: Plan: related to acute HFpEF as above-resolved. No evidence of acute coronary syndrome. (4) Weakness: Plan: - Related to morbid obesity and chronic R femur fx with nonunion. On oxycodone as needed and Tylenol. PT/OT as often as possible - Case management for complex dc issues (5) Fracture of distal end of right femur: Plan: Chronic nonunion of fracture. NWB to RLE. Continue PT/OT. Pain control measures (6) Hypothyroidism (acquired): Plan: Continue Levothyroxine, recent increased from 200mcg daily to 225mcg in mid Oct for elevated TSH. TSH repeated on 10/22 and is now normal at 1.1 (7) CKD stage 4 due to type 2 diabetes mellitus: Plan: (baseline creatinine 1.3-1.8). Monitor intake and output. Serial labs. Avoid nephrotoxins. (8) GERD (gastroesophageal reflux disease): Plan: Treated with protonix (9) Insulin-requiring or dependent type II diabetes mellitus: Plan: ADA diet. Now on an insulin pump. Continue Jardiance. 136, 140, 139, 155 Hemoglobin A1c on 10/22 down to 7.2%. f/u with Endocrinology after discharge. (10) Anxiety: Plan: Stable on bupropion (11) Morbid obesity with BMI of 60.0-69.9, adult: Plan: Markedly elevated BMI. Weight loss advised (12) Congestive heart failure: Plan: Acute on chronic combined systolic/diastolic CHF. Most recent ejection fraction 45%. Now resolved with diuresis. Continue current medication therapy Plan Anticipate eventual discharge to home with [facility] assistance when arrangements are finalized. Currently not enough home health hours available nor ramp installed. Admission and Anticipated Discharge Date Admission Date: October 01, 2022 Subjective seen at noon Emotional about not having the ramp done at home and not enough hours by home health. Wants to go home badly No complaints as far as systemically Physical Exam Physical Exam: Severely obese pleasant lady, oneill facies, occasionally tearful during our conversation today, Head and neck tracheostomy collar on, diffuse fine facial hair most prominently on chin, normal voice without including the tracheostomy stoma Chest diminished entry breath sounds bilaterally Abdomen still obese nontender Trace edema pretibial Normal insight and judgment Results & Data Results & Data ([facility]) Vital Signs (Past 12 Hours) Vital Signs Temp Pulse Resp BP Pulse Ox O2 Del Method O2 Flow Rate 11/04/22 10:00 Room Air, Trach Collar 11/04/22 11:38 68 18 94 Room Air 11/04/22 07:45 70 18 96 Room Air 11/04/22 07:41 36.6 C 68 18 118/66 94 Trach Collar 5 Laboratory Results None Medications Administered Home Medications Medication Instructions Recorded Confirmed Last Taken aspirin 81 mg tablet,delayed 81 mg PO QAM 04/06/19 10/01/22 10/01/22 release (Robert Low Dose Aspirin) bupropion HCl 100 mg tablet,12 hr See Rx Instructions .Route .COMPLEX 04/06/19 10/01/22 10/01/22 08:00 sustained-release metoprolol tartrate 25 mg tablet 12.5 mg PO BID 04/06/19 10/01/22 10/01/22 08:00 multivitamin 1 tab PO QAM 04/06/19 10/01/22 10/01/22 pantoprazole 40 mg tablet,delayed 40 mg PO DAILYBB 04/06/19 10/01/22 10/01/22 release spironolactone 25 mg tablet 25 mg PO QAM 04/06/19 10/01/22 10/01/22 topiramate 100 mg tablet 100 mg PO BID 04/06/19 10/01/22 10/01/22 09:00 Oxygen Home #1 ea 06/28/19 03/22/22 Unknown nitroglycerin 0.4 mg sublingual 0.4 mg sublingual DIRECTED PRN 06/28/19 10/01/22 10/01/22 14:05 tablet Chest Pain nebulizers #1 ea 12/24/20 10/04/22 Unknown betamethasone dipropionate 0.05 % 1 applic topical BID PRN Skin 02/27/21 10/01/22 Unknown topical cream Irritation ipratropium 0.5 mg-albuterol 3 mg 3 ml inhalation Q4H PRN COUGHING, 02/27/21 10/01/22 07/24/22 (2.5 mg base)/3 mL nebulization WHEEZING, SHORTNESS OF BREATH soln folic acid 1 mg tablet 1 mg PO QAM #0 tabs 04/19/21 10/01/22 10/01/22 blood sugar diagnostic (Contour #[phone] ea 09/29/21 10/04/22 Unknown Next Test Strips) albuterol sulfate 90 mcg/actuation 2 puff inhalation Q4 PRN Shortness 11/25/21 10/01/22 Unknown aerosol inhaler Of Breath atorvastatin 40 mg tablet 40 mg PO QPM #90 tabs 01/14/22 10/01/22 09/30/22 acetaminophen 500 mg tablet 500 mg PO QPM 03/23/22 10/01/22 09/30/22 (Tylenol Extra Strength) acidophilus 100 million 1 cap PO QAM 03/23/22 10/01/22 10/01/22 cell-pectin, citrus 10 mg capsule torsemide 10 mg tablet 10 mg PO BID 07/24/22 10/01/22 10/01/22 07:00 insulin glargine 100 unit/mL (3 80 unit (0.8 mL) subcut BID #48 mL 09/07/22 10/01/22 10/01/22 08:00 mL) subcutaneous pen isosorbide mononitrate 30 mg 30 mg PO QAM #30 tabs 10/18/22 11/11/22 11/11/22 tablet,extended release 24 hr oxycodone 5 mg tablet 10 mg PO Q8H PRN pain #10 tabs 09/07/22 10/01/22 10/01/22 08:22 acetaminophen 325 mg tablet 650 mg PO Q6H PRN FEVER/PAIN 10/01/22 10/01/22 Unknown (Tylenol) docusate sodium 100 mg capsule 100 mg PO BID 10/01/22 10/01/22 10/01/22 08:00 insulin lispro 100 unit/mL 1 sliding scale dose subcut 10/01/22 10/01/22 10/01/22 11:30 subcutaneous pen (Humalog KwikPen USEASDIRECTD 2 UNITS (U-100) Insulin) ipratropium 20 mcg-albuterol 100 1 puff inhalation QID 10/01/22 10/01/22 10/01/22 12:00 mcg/actuation mist for inhalation (Combivent Respimat) levothyroxine 200 mcg tablet 200 mcg PO DAILYBB 10/01/22 10/01/22 10/01/22 levothyroxine 25 mcg tablet 25 mcg PO DAILYBB 10/01/22 10/01/22 10/01/22 magnesium oxide 400 mg PO QAM 10/01/22 10/01/22 10/01/22 potassium chloride 20 mEq 20 meq PO BID 10/01/22 10/01/22 10/01/22 08:00 tablet,extended release sulfamethoxazole 800 1 tab PO BID 10/01/22 10/01/22 10/01/22 08:00 mg-trimethoprim 160 mg tablet (Bactrim DS) Active Medications Generic Name Dose Route Start Last Admin Trade Name Freq PRN Reason Stop Dose Admin Acetaminophen 650 mg 11/01/22 12:26 11/03/22 13:23 Acetaminophen 325 Mg Tab PO 12/01/22 12:25 650 mg Q4H PRN Administration Pain or Fever Albuterol 3 ml 10/07/22 07:00 11/04/22 11:37 Albut/Ipratrop 3mg/0.5mg Neb 3 Ml Vial NEB 11/06/22 06:59 3 ml QIDR ASIYA Administration Protocol Albuterol 3 ml 10/06/22 21:59 10/27/22 19:53 Albut/Ipratrop 3mg/0.5mg Neb 3 Ml Vial NEB 11/05/22 21:58 3 ml Q2R PRN Administration Shortness Of Breath Or Wheezing Protocol Aspirin 81 mg 10/02/22 09:00 11/04/22 10:11 Aspirin 81 Mg Ectab PO 12/02/22 08:59 81 mg QAM ASIYA Administration Atorvastatin Calcium 40 mg 10/31/22 21:20 11/03/22 20:54 Atorvastatin 40 Mg Tab PO 11/30/22 21:19 40 mg QPM ASIYA Administration Azithromycin 250 mg 10/27/22 09:00 11/03/22 08:29 Azithromycin 250 Mg Tab PO 11/26/22 08:59 250 mg MoWeFr ASIYA Administration Bacitracin/Polymyxin B Sulfate 1 appln 10/11/22 10:00 11/04/22 10:15 Bacitracin/Polymyxin B Sulfate 90 Appln/28.4 Gm Tube EXT 11/10/22 09:59 1 appln BID ASIYA Administration Bupropion HCl 100 mg 10/02/22 09:00 11/04/22 10:12 Bupropion Sr 100 Mg Tabcr PO 12/02/22 08:59 100 mg QAM ASIYA Administration Bupropion HCl 200 mg 10/01/22 22:00 11/03/22 20:56 Bupropion Sr 100 Mg Tabcr PO 12/02/22 21:59 200 mg PM ASIYA Administration Diclofenac Sodium 2 gm 10/21/22 23:26 11/01/22 08:25 Diclofenac Sod 1% Gel 100 Gm Tube EXT 11/21/22 08:59 2 gm BID PRN Administration joint pain Protocol Docusate Sodium 100 mg 11/03/22 10:00 11/04/22 10:13 Docusate Sodium 100 Mg Cap PO 12/03/22 09:59 100 mg BID ASIYA Administration Empagliflozin 10 mg 10/13/22 09:00 11/04/22 10:15 Empagliflozin 10 Mg Tab PO 11/12/22 08:59 10 mg QAM ASIYA Administration Folic Acid 1 mg 10/02/22 09:00 11/04/22 10:14 Folic Acid 1 Mg Tab PO 12/02/22 08:59 1 mg QAM ASIYA Administration Heparin Sodium (Porcine) 5,000 units 10/01/22 22:00 11/04/22 13:01 Heparin Sod 5,000 Unit/0.5 Ml Vial SQ 12/02/22 21:59 5,000 units Q8 ASIYA Administration Insulin Aspart 1 each 11/01/22 15:00 11/04/22 13:01 Insulin, Rapid-Acting Pump N/A 12/01/22 14:59 1 each ACHS ASIYA Administration Protocol Isosorbide Mononitrate 30 mg 10/02/22 09:00 11/04/22 10:13 Isosorbide [place] Extended Rel 30 Mg Tabcr PO 12/02/22 08:59 30 mg QAM ASIYA Administration Levothyroxine Sodium 25 mcg 10/02/22 06:30 11/04/22 06:08 Levothyroxine Sodium 25 Mcg Tablet PO 12/02/22 06:29 25 mcg DAILYBB ASIYA Administration Levothyroxine Sodium 200 mcg 10/02/22 06:30 11/04/22 06:08 Levothyroxine Sodium 200 Mcg Tablet PO 12/02/22 06:29 200 mcg DAILYBB ASIYA Administration Magnesium Oxide 400 mg 10/02/22 09:00 11/04/22 10:14 Magnesium Oxide 400 Mg Tab PO 12/02/22 08:59 400 mg QAM ASIYA Administration Metoprolol Tartrate 12.5 mg 10/31/22 22:00 11/04/22 10:11 Metoprolol Tartrate 25 Mg Tab PO 11/30/22 21:59 12.5 mg BID ASIYA Administration Multivitamins 1 tab 10/02/22 09:00 11/04/22 10:10 Multivitamin Tab PO 12/02/22 08:59 1 tab QAM ASIYA Administration Nystatin 1 appln 10/10/22 21:00 11/04/22 10:20 Nystatin Powder 15gm Btl EXT 11/09/22 20:59 Not Given BID ASIYA Oxycodone HCl 5 mg 10/18/22 13:32 11/03/22 13:23 Oxycodone Hcl Ir 5 Mg Tab (Immediate Release) PO 12/02/22 13:31 5 mg Q6H PRN Administration Pain scale >7 or pre-PT Pantoprazole Sodium 40 mg 10/02/22 06:30 11/04/22 06:06 Pantoprazole 40 Mg Tab PO 12/02/22 06:29 40 mg DAILYBB ASIYA Administration Potassium Chloride 20 meq 10/15/22 10:00 11/04/22 10:13 Potassium Chloride Crtab 20 Meq Tabcr PO 11/14/22 09:59 20 meq QAM ASIYA Administration Spironolactone 25 mg 10/02/22 09:00 11/04/22 10:10 Spironolactone 25 Mg Tab PO 12/02/22 08:59 25 mg QAM ASIYA Administration Topiramate 100 mg 10/27/22 09:00 11/04/22 10:12 Topiramate 100 Mg Tab PO 11/26/22 08:59 100 mg QAM ASIYA Administration Topiramate 200 mg 10/26/22 21:00 11/03/22 20:55 Topiramate 100 Mg Tab PO 11/25/22 20:59 200 mg HS ASIYA Administration Torsemide 20 mg 10/25/22 07:00 11/04/22 06:10 Torsemide 20 Mg Tab PO 11/24/22 06:59 20 mg DAILY@0700 ASIYA Administration Torsemide 20 mg 10/26/22 09:26 10/31/22 10:30 Torsemide 10 Mg Tab PO 11/25/22 16:59 20 mg DAILY@1700 PRN Administration weight gain>2 lbs PG Care Time/CCT Total # of Minutes Spent Total Time Spent with Patient: Total time spent is greater than 50% in coordination of care (as documented) at patient's floor/unit and/or counseling patient: Coding Level of Care Code 67141 Subseq Hosp Care Lvl 1 Diagnoses SOB (shortness of breath) R06.02 Chronic diastolic congestive heart failure I50.32 Atypical chest pain R07.89 Weakness R53.1 Fracture of distal end of right femur S72.401A Hypothyroidism (acquired) E03.9 CKD stage 4 due to type 2 diabetes mellitus E11.22; N18.4 GERD (gastroesophageal reflux disease) K21.9 Insulin-requiring or dependent type II diabetes mellitus E11.9; Z79.4 Anxiety F41.9 Morbid obesity with BMI of 60.0-69.9, adult E66.01; Z68.44 Congestive heart failure I50.9
[2022-11-04] MEDS: ACETAMINOPHEN 325 MG TAB PO PRN (14:54)
[2022-11-04] MEDS: oxyCODONE HCL IR 5 MG TAB (IMMEDIATE RELEASE) PO PRN (14:54)
[2022-11-04] MEDS: ATORVASTATIN 40 MG TAB PO SCH (21:10)
[2022-11-05] MEDS: PANTOprazole 40 MG TAB PO SCH (06:10)
[2022-11-05] MEDS: TORSEMIDE 20 MG TAB PO SCH (06:11)
[2022-11-05] MEDS: LEVOTHYROXINE SODIUM 25 MCG TABLET PO SCH (06:11)
[2022-11-05] MEDS: LEVOTHYROXINE SODIUM 200 MCG TABLET PO SCH (06:11)
[2022-11-05] MEDS: HEPARIN SOD 5,000 UNIT/0.5 ML VIAL SQ SCH ×3 (06:12→21:44)
[2022-11-05] MEDS: ALBUT/IPRATROP 3MG/0.5MG NEB 3 ML VIAL NEB SCH ×4 (08:10→20:09)
[2022-11-05] MEDS: AZITHROMYCIN 250 MG TAB PO SCH (08:41)
[2022-11-05] MEDS: ASPIRIN 81 MG ECTAB PO SCH (08:41)
[2022-11-05] MEDS: BACITRACIN/POLYMYXIN B SULFATE 90 APPLN/28.4 GM TUBE EXT SCH ×2 (08:42→20:02)
[2022-11-05] MEDS: buPROPion SR 100 MG TABCR PO SCH ×2 (08:42→20:01)
[2022-11-05] MEDS: DOCUSATE SODIUM 100 MG CAP PO SCH ×2 (08:42→20:01)
[2022-11-05] MEDS: EMPAGLIFLOZIN 10 MG TAB PO SCH (08:43)
[2022-11-05] MEDS: FOLIC ACID 1 MG TAB PO SCH (08:43)
[2022-11-05] MEDS: MAGNESIUM OXIDE 400 MG TAB PO SCH (08:44)
[2022-11-05] MEDS: ISOSORBIDE MONO EXTENDED REL 30 MG TABCR PO SCH (08:44)
[2022-11-05] MEDS: METOPROLOL TARTRATE 25 MG TAB PO SCH ×2 (08:45→20:01)
[2022-11-05] MEDS: SPIRONOLACTONE 25 MG TAB PO SCH (08:46)
[2022-11-05] MEDS: NYSTATIN POWDER 15GM BTL EXT SCH ×2 (08:46→22:35)
[2022-11-05] MEDS: MULTIVITAMIN TAB PO SCH (08:46)
[2022-11-05] MEDS: POTASSIUM CHLORIDE CRTAB 20 MEQ TABCR PO SCH (08:46)
[2022-11-05] MEDS: TOPIRAMATE 100 MG TAB PO SCH ×2 (08:47→20:01)
[2022-11-05] MEDS: INSULIN, Rapid-Acting PUMP SCH ×4 (11:40→21:45)
[2022-11-05] MEDS: oxyCODONE HCL IR 5 MG TAB (IMMEDIATE RELEASE) PO PRN (15:26)
[2022-11-05] MEDS: ACETAMINOPHEN 325 MG TAB PO PRN (15:26)
--- NOTE | 2022-11-05 19:01 | Hospitalist Progress Note ---
Date of Service November 05, 2022 Assessment & Plan (1) SOB (shortness of breath): Plan: Acute on Chronic related to COPD, OHS, RASHAAD, CHF. Now resolved and back to baseline. Continue prn Duonebs and inhalers. Hypertonic saline nebs have been discontinued, no chest PT needed. Now at baseline and awaiting home health arrangements. (2) Chronic diastolic congestive heart failure: Plan: Acute on chronic combined systolic and diastolic CHF. Most recent ejection fraction 45%. Now back to baseline. Received some IV diuresis early on. Continue torsemide 20 mg daily and prn dose in the afternoon-for weight gain over 2 pounds-> she declines to take extra afternoon dose in the hospital due to difficulty getting to the bathroom quickly. She says she'll take the extra dose when she gets home. Continue spironolactone, metoprolol, isosorbide mononitrate, ASA, atorvastatin. Limit salt intake. (3) Atypical chest pain: Plan: related to acute HFpEF as above-resolved. No evidence of acute coronary syndrome. (4) Weakness: Plan: - Related to morbid obesity and chronic R femur fx with nonunion. On oxycodone as needed and Tylenol. PT/OT as often as possible - Case management for complex dc issues (5) Fracture of distal end of right femur: Plan: Chronic nonunion of fracture. NWB to RLE. Continue PT/OT. Pain control measures (6) Hypothyroidism (acquired): Plan: Continue Levothyroxine, recent increased from 200mcg daily to 225mcg in mid Oct for elevated TSH. TSH repeated on 10/22 and is now normal at 1.1 (7) CKD stage 4 due to type 2 diabetes mellitus: Plan: (baseline creatinine 1.3-1.8). Monitor intake and output. Serial labs. Avoid nephrotoxins. (8) GERD (gastroesophageal reflux disease): Plan: Treated with protonix (9) Insulin-requiring or dependent type II diabetes mellitus: Plan: ADA diet. Now on an home insulin pump. Continue Jardiance. 136, 140, 139, 155 Hemoglobin A1c on 10/22 down to 7.2%. f/u with Endocrinology after discharge. (10) Anxiety: Plan: Stable on bupropion (11) Morbid obesity with BMI of 60.0-69.9, adult: Plan: Markedly elevated BMI. Weight loss advised (12) Congestive heart failure: Plan: Acute on chronic combined systolic/diastolic CHF. Most recent ejection fraction 45%. Now resolved with diuresis. Continue current medication therapy Plan Anticipate eventual discharge to home with [facility] [employer] assistance when arrangements are finalized. Currently not enough home health hours available nor ramp installed. Hospital day 36 Admission and Anticipated Discharge Date Admission Date: October 01, 2022 Subjective seen around 5 pm No complaints Physical Exam Physical Exam: Severely obese pleasant lady, oneill facies, cheerful and sitting on her chair as usual on room air, Head and neck tracheostomy collar on, diffuse fine facial hair most prominently on chin, normal voice without including the tracheostomy stoma Chest diminished entry breath sounds bilaterally Abdomen obese nontender Trace edema pretibial, scattered scabs over lower legs Normal insight and judgment Results & Data Results & Data ([facility]) Vital Signs (Past 12 Hours) Vital Signs Temp Pulse Pulse Resp BP Pulse Ox O2 Del Method 11/05/22 15:30 76 18 95 Room Air 11/05/22 15:05 36.7 C 74 20 131/66 95 Room Air 11/05/22 11:51 71 18 94 Room Air 11/05/22 08:20 Room Air 11/05/22 08:10 81 20 92 Room Air 11/05/22 07:21 36.7 C 71 20 115/68 92 Room Air PG Care Time/CCT Total # of Minutes Spent Total Time Spent with Patient: Total time spent is greater than 50% in coordination of care (as documented) at patient's floor/unit and/or counseling patient: Coding Level of Care Code 35888 Subseq Hosp Care Lvl 1 Diagnoses SOB (shortness of breath) R06.02 Chronic diastolic congestive heart failure I50.32 Atypical chest pain R07.89 Weakness R53.1 Fracture of distal end of right femur S72.401A Hypothyroidism (acquired) E03.9 CKD stage 4 due to type 2 diabetes mellitus E11.22; N18.4 GERD (gastroesophageal reflux disease) K21.9 Insulin-requiring or dependent type II diabetes mellitus E11.9; Z79.4 Anxiety F41.9 Morbid obesity with BMI of 60.0-69.9, adult E66.01; Z68.44 Congestive heart failure I50.9
[2022-11-05] MEDS: ATORVASTATIN 40 MG TAB PO SCH (20:01)
[2022-11-06] MEDS: ACETAMINOPHEN 325 MG TAB PO PRN (00:27)
[2022-11-06] MEDS: oxyCODONE HCL IR 5 MG TAB (IMMEDIATE RELEASE) PO PRN (00:27)
[2022-11-06] MEDS: LEVOTHYROXINE SODIUM 25 MCG TABLET PO SCH (05:41)
[2022-11-06] MEDS: LEVOTHYROXINE SODIUM 200 MCG TABLET PO SCH (05:41)
[2022-11-06] MEDS: PANTOprazole 40 MG TAB PO SCH (05:41)
[2022-11-06] MEDS: HEPARIN SOD 5,000 UNIT/0.5 ML VIAL SQ SCH ×3 (05:43→21:10)
[2022-11-06] MEDS: TORSEMIDE 20 MG TAB PO SCH (05:44)
[2022-11-06] MEDS: POTASSIUM CHLORIDE CRTAB 20 MEQ TABCR PO SCH (08:15)
[2022-11-06] MEDS: TOPIRAMATE 100 MG TAB PO SCH ×2 (08:15→21:11)
[2022-11-06] MEDS: EMPAGLIFLOZIN 10 MG TAB PO SCH (08:15)
[2022-11-06] MEDS: ASPIRIN 81 MG ECTAB PO SCH (08:15)
[2022-11-06] MEDS: METOPROLOL TARTRATE 25 MG TAB PO SCH ×2 (08:15→21:05)
[2022-11-06] MEDS: ISOSORBIDE MONO EXTENDED REL 30 MG TABCR PO SCH (08:15)
[2022-11-06] MEDS: DOCUSATE SODIUM 100 MG CAP PO SCH ×2 (08:15→21:06)
[2022-11-06] MEDS: FOLIC ACID 1 MG TAB PO SCH (08:16)
[2022-11-06] MEDS: MULTIVITAMIN TAB PO SCH (08:16)
[2022-11-06] MEDS: SPIRONOLACTONE 25 MG TAB PO SCH (08:16)
[2022-11-06] MEDS: MAGNESIUM OXIDE 400 MG TAB PO SCH (08:16)
[2022-11-06] MEDS: buPROPion SR 100 MG TABCR PO SCH ×2 (08:16→21:09)
[2022-11-06] MEDS: ALBUT/IPRATROP 3MG/0.5MG NEB 3 ML VIAL NEB PRN ×2 (08:23→19:57)
[2022-11-06] MEDS: NYSTATIN POWDER 15GM BTL EXT SCH ×2 (08:31→21:06)
--- NOTE | 2022-11-06 09:55 | Hospitalist Progress Note ---
Date of Service November 06, 2022 Assessment & Plan (1) SOB (shortness of breath): Plan: Mrs. Connelly is a 67 yo woman currently on day 37 of hospital stay. - Acute on Chronic related to COPD, OHS, RASHAAD, CHF. - Now resolved and back to baseline. - Continue prn Duonebs and inhalers. (2) Chronic diastolic congestive heart failure: Plan: - Acute on chronic combined systolic and diastolic CHF. Now back to baseline. - Most recent ejection fraction 45%. - Received some IV diuresis early on in hospitalization. Continue torsemide 20 mg daily and prn dose in the afternoon-for weight gain over 2 pounds-> she declines to take extra afternoon dose in the hospital due to difficulty getting to the bathroom quickly. She says she'll take the extra dose when she gets home. - Continue spironolactone, metoprolol, isosorbide mononitrate, ASA, atorvastatin. Limit salt intake. (3) Atypical chest pain: Plan: - related to acute HFpEF as above-resolved. - No evidence of acute coronary syndrome. (4) Weakness: Plan: - Related to morbid obesity and chronic R femur fx with nonunion. - On oxycodone as needed and Tylenol. - PT/OT as often as possible - Case management for complex dc issues (5) Fracture of distal end of right femur: Plan: - Chronic nonunion of fracture. - NWB to RLE. - Continue PT/OT. Pain control measures (6) Hypothyroidism (acquired): Plan: - Continue Levothyroxine, recent increased from 200mcg daily to 225mcg in mid Oct for elevated TSH. TSH repeated on 10/22 and is now normal at 1.1 (7) CKD stage 4 due to type 2 diabetes mellitus: Plan: - (baseline creatinine 1.3-1.8). Monitor intake and output. Serial labs. Avoi d nephrotoxins. (8) GERD (gastroesophageal reflux disease): Plan: - Treated with protonix (9) Insulin-requiring or dependent type II diabetes mellitus: Plan: - ADA diet. Now on an home insulin pump. Continue Jardiance. Consideration could be given to Mounjaro or Ozempic for added benefit of weight loss - A1c on 10/22 down to 7.2%. - f/u with Endocrinology after discharge. (10) Anxiety: Plan: - Stable on bupropion (11) Morbid obesity with BMI of 60.0-69.9, adult: Plan: - Markedly elevated BMI. Weight loss advised (12) Congestive heart failure: Plan: - Acute on chronic combined systolic/diastolic CHF. Most recent ejection fraction 45%. Now resolved with diuresis. Continue current medication therapy Plan Anticipate eventual discharge to home with [employer] assistance when arrangements are finalized. Currently not enough home health hours available nor ramp installed. Cm on board Hospital day 37 Admission and Anticipated Discharge Date Admission Date: October 01, 2022 Subjective no acute events overnight. Patient expresses strong desire to get home before [place] Review of Systems Review of Systems: All systems reviewed & are unremarkable except as noted in HPI & below Physical Exam Constitutional: WD/WN, vitals as above Eyes: + anicteric sclerae ENMT: external ear and nose normal, oropharynx normal Neck: trachea midline, no thyromegaly + trach collar in place Respiratory: normal respiratory effort Skin: no rashes, warm and dry Neurologic: moves all extremities Psychiatric: A+Ox3, euthymic affect Results & Data Results & Data ([facility]) Vital Signs (Past 12 Hours) Vital Signs Temp Pulse Pulse Resp BP Pulse Ox O2 Del Method 11/06/22 08:23 72 18 96 Room Air 11/06/22 07:30 36.7 C 70 18 119/68 94 Room Air
[2022-11-06] MEDS: INSULIN, Rapid-Acting PUMP SCH ×4 (10:17→22:09)
--- NOTE | 2022-11-06 13:07 | Billing Data ---
Date of Service November 06, 2022 Coding Level of Care Code 70363 Subseq Hosp Care Lvl 1
[2022-11-06] MEDS: BACITRACIN/POLYMYXIN B SULFATE 90 APPLN/28.4 GM TUBE EXT SCH ×2 (13:12→21:04)
[2022-11-06] MEDS: ATORVASTATIN 40 MG TAB PO SCH (21:04)
[2022-11-07] MEDS: HEPARIN SOD 5,000 UNIT/0.5 ML VIAL SQ SCH ×3 (05:46→22:25)
[2022-11-07] MEDS: TORSEMIDE 20 MG TAB PO SCH (05:46)
[2022-11-07] MEDS: LEVOTHYROXINE SODIUM 200 MCG TABLET PO SCH (05:47)
[2022-11-07] MEDS: LEVOTHYROXINE SODIUM 25 MCG TABLET PO SCH (05:47)
[2022-11-07] MEDS: PANTOprazole 40 MG TAB PO SCH (05:47)
[2022-11-07] MEDS: buPROPion SR 100 MG TABCR PO SCH ×2 (07:42→22:26)
[2022-11-07] MEDS: MULTIVITAMIN TAB PO SCH (07:42)
[2022-11-07] MEDS: METOPROLOL TARTRATE 25 MG TAB PO SCH ×2 (07:42→22:27)
[2022-11-07] MEDS: ISOSORBIDE MONO EXTENDED REL 30 MG TABCR PO SCH (07:42)
[2022-11-07] MEDS: ASPIRIN 81 MG ECTAB PO SCH (07:42)
[2022-11-07] MEDS: FOLIC ACID 1 MG TAB PO SCH (07:42)
[2022-11-07] MEDS: SPIRONOLACTONE 25 MG TAB PO SCH (07:43)
[2022-11-07] MEDS: MAGNESIUM OXIDE 400 MG TAB PO SCH (07:43)
[2022-11-07] MEDS: DOCUSATE SODIUM 100 MG CAP PO SCH ×2 (07:43→22:25)
[2022-11-07] MEDS: POTASSIUM CHLORIDE CRTAB 20 MEQ TABCR PO SCH (07:43)
[2022-11-07] MEDS: BACITRACIN/POLYMYXIN B SULFATE 90 APPLN/28.4 GM TUBE EXT SCH ×2 (07:45→22:32)
[2022-11-07] MEDS: NYSTATIN POWDER 15GM BTL EXT SCH ×2 (07:47→22:23)
[2022-11-07] MEDS: EMPAGLIFLOZIN 10 MG TAB PO SCH (07:47)
[2022-11-07] MEDS: ALBUT/IPRATROP 3MG/0.5MG NEB 3 ML VIAL NEB PRN ×2 (07:58→15:09)
--- NOTE | 2022-11-07 10:23 | Hospitalist Progress Note ---
Date of Service November 07, 2022 Assessment & Plan (1) SOB (shortness of breath): Plan: Mrs. Connelly is a 67 yo woman currently on day 38 of hospital stay. - Acute on Chronic related to COPD, OHS, RASHAAD, CHF. - Now resolved and back to baseline. - Continue prn Duonebs and inhalers. CPAP at night. (2) Chronic diastolic congestive heart failure: Plan: - Acute on chronic combined systolic and diastolic CHF. Now back to baseline. - Most recent ejection fraction 45%. - Received some IV diuresis early on in hospitalization. Continue torsemide 20 mg daily and prn dose in the afternoon-for weight gain over 2 pounds-> she declines to take extra afternoon dose in the hospital due to difficulty getting to the bathroom quickly. She says she'll take the extra dose when she gets home. - Continue spironolactone, metoprolol, isosorbide mononitrate, ASA, atorvastatin. Low salt diet (3) Atypical chest pain: Plan: - related to acute HFpEF as above-resolved. - No evidence of acute coronary syndrome. (4) Weakness: Plan: - Related to morbid obesity and chronic R femur fx with nonunion. - On oxycodone as needed and Tylenol. - PT/OT as often as possible - Case management for complex dc issues (5) Fracture of distal end of right femur: Plan: - Chronic nonunion of fracture. - NWB to RLE. - Continue PT/OT. Pain control measures (6) Hypothyroidism (acquired): Plan: - Continue Levothyroxine, recent increased from 200mcg daily to 225mcg in mid Oct for elevated TSH. TSH repeated on 10/22 and is now normal at 1.1 (7) CKD stage 4 due to type 2 diabetes mellitus: Plan: - (baseline creatinine 1.3-1.8). Monitor intake and output. Serial labs. Avoid nephrotoxins. (8) GERD (gastroesophageal reflux disease): Plan: - Treated with protonix (9) Insulin-requiring or dependent type II diabetes mellitus: Plan: - ADA diet. Now on an home insulin pump. Continue Jardiance. Consideration could be given to Mounjaro or Ozempic for added benefit of weight loss - A1c on 10/22 down to 7.2%. - f/u with Endocrinology after discharge. (10) Anxiety: Plan: - Stable on bupropion (11) Morbid obesity with BMI of 60.0-69.9, adult: Plan: - Markedly elevated BMI. Weight loss advised (12) Congestive heart failure: Plan: - Acute on chronic combined systolic/diastolic CHF. Most recent ejection fracti on 45%. Now resolved with diuresis. Continue current medication therapy Plan Anticipate eventual discharge to home with [facility] [employer] assistance when arrangements are finalized. Currently not enough home health hours available nor ramp installed. CM on board Hospital day 38 Admission and Anticipated Discharge Date Admission Date: October 01, 2022 Subjective patient tells me today that she requested a nebulizer treatment overnight and was told by respiratory therapy that these were not ordered for her any longer. Patient was confused by this because she was still coughing Review of Systems Review of Systems: All systems reviewed & are unremarkable except as noted in HPI & below Physical Exam Constitutional: WD/WN, vitals as above Eyes: + anicteric sclerae ENMT: external ear and nose normal, oropharynx normal Neck: trachea midline, no thyromegaly Respiratory: normal respiratory effort + trach collar in place Skin: no rashes, warm and dry Neurologic: moves all extremities Psychiatric: A+Ox3, euthymic affect Results & Data Results & Data ([facility]) Vital Signs (Past 12 Hours) Vital Signs Temp Pulse Resp BP Pulse Ox O2 Del Method O2 Flow Rate 11/07/22 08:39 Other 11/07/22 07:59 77 16 95 Room Air 11/07/22 07:32 36.6 C 80 20 116/70 93 Room Air 11/06/22 23:02 92 H 22 96 Trach Collar 6 FiO2 11/07/22 08:39 11/07/22 07:59 11/07/22 07:32 11/06/22 23:02 28 PG Care Time/CCT Total # of Minutes Spent Total Time Spent with Patient: Total time spent is greater than 50% in coordination of care (as documented) at patient's floor/unit and/or counseling patient: Coding Level of Care Code 78326 Subseq Hosp Care Lvl 1 Diagnoses SOB (shortness of breath) R06.02 Chronic diastolic congestive heart failure I50.32 Atypical chest pain R07.89 Weakness R53.1 Fracture of distal end of right femur S72.401A Hypothyroidism (acquired) E03.9 CKD stage 4 due to type 2 diabetes mellitus E11.22; N18.4 GERD (gastroesophageal reflux disease) K21.9 Insulin-requiring or dependent type II diabetes mellitus E11.9; Z79.4 Anxiety F41.9 Morbid obesity with BMI of 60.0-69.9, adult E66.01; Z68.44 Congestive heart failure I50.9
[2022-11-07] MEDS: INSULIN, Rapid-Acting PUMP SCH ×4 (10:32→22:24)
[2022-11-07] MEDS: ACETAMINOPHEN 325 MG TAB PO PRN (10:57)
[2022-11-07] MEDS: oxyCODONE HCL IR 5 MG TAB (IMMEDIATE RELEASE) PO PRN (10:58)
[2022-11-07] MEDS: TOPIRAMATE 100 MG TAB PO SCH ×2 (15:20→22:26)
[2022-11-07] MEDS: ATORVASTATIN 40 MG TAB PO SCH (22:26)
[2022-11-08] MEDS: PANTOprazole 40 MG TAB PO SCH (05:47)
[2022-11-08] MEDS: LEVOTHYROXINE SODIUM 25 MCG TABLET PO SCH (05:47)
[2022-11-08] MEDS: LEVOTHYROXINE SODIUM 200 MCG TABLET PO SCH (05:48)
[2022-11-08] MEDS: HEPARIN SOD 5,000 UNIT/0.5 ML VIAL SQ SCH ×3 (05:48→20:52)
[2022-11-08] MEDS: TORSEMIDE 20 MG TAB PO SCH (06:23)
[2022-11-08] MEDS: BACITRACIN/POLYMYXIN B SULFATE 90 APPLN/28.4 GM TUBE EXT SCH ×2 (07:48→20:54)
[2022-11-08] MEDS: NYSTATIN POWDER 15GM BTL EXT SCH ×2 (07:48→20:54)
[2022-11-08] MEDS: DOCUSATE SODIUM 100 MG CAP PO SCH ×2 (07:50→20:52)
[2022-11-08] MEDS: buPROPion SR 100 MG TABCR PO SCH ×2 (07:50→20:52)
[2022-11-08] MEDS: AZITHROMYCIN 250 MG TAB PO SCH (07:50)
[2022-11-08] MEDS: ASPIRIN 81 MG ECTAB PO SCH (07:50)
[2022-11-08] MEDS: FOLIC ACID 1 MG TAB PO SCH (07:51)
[2022-11-08] MEDS: ISOSORBIDE MONO EXTENDED REL 30 MG TABCR PO SCH (07:51)
[2022-11-08] MEDS: MAGNESIUM OXIDE 400 MG TAB PO SCH (07:51)
[2022-11-08] MEDS: POTASSIUM CHLORIDE CRTAB 20 MEQ TABCR PO SCH (07:51)
[2022-11-08] MEDS: MULTIVITAMIN TAB PO SCH (07:51)
[2022-11-08] MEDS: SPIRONOLACTONE 25 MG TAB PO SCH (07:51)
[2022-11-08] MEDS: EMPAGLIFLOZIN 10 MG TAB PO SCH (07:51)
[2022-11-08] MEDS: TOPIRAMATE 100 MG TAB PO SCH ×2 (07:51→20:53)
[2022-11-08] MEDS: INSULIN, Rapid-Acting PUMP SCH ×4 (09:29→20:58)
[2022-11-08] MEDS: METOPROLOL TARTRATE 25 MG TAB PO SCH ×2 (09:38→20:53)
[2022-11-08] MEDS: oxyCODONE HCL IR 5 MG TAB (IMMEDIATE RELEASE) PO PRN (16:26)
--- NOTE | 2022-11-08 19:38 | Hospitalist Progress Note ---
Date of Service November 08, 2022 Assessment & Plan (1) SOB (shortness of breath): Plan: Acute on Chronic related to COPD, OHS, RASHAAD, CHF. Now resolved and back to baseline. Continue prn Duonebs and inhalers. Hypertonic saline nebs have been discontinued, no chest PT needed. Now at baseline and awaiting home health arrangements. (2) Chronic diastolic congestive heart failure: Plan: Acute on chronic combined systolic and diastolic CHF. Most recent ejection fraction 45%. Now back to baseline. Received some IV diuresis early on. Continue torsemide 20 mg daily and prn dose in the afternoon-for weight gain over 2 pounds-> she declines to take extra afternoon dose in the hospital due to difficulty getting to the bathroom quickly. She says she'll take the extra dose when she gets home. Continue spironolactone, metoprolol, isosorbide mononitrate, ASA, atorvastatin. Limit salt intake. (3) Atypical chest pain: Plan: related to acute HFpEF as above-resolved. No evidence of acute coronary syndrome. (4) Weakness: Plan: - Related to morbid obesity and chronic R femur fx with nonunion. On oxycodone as needed and Tylenol. PT/OT as often as possible - Case management for complex dc issues (5) Fracture of distal end of right femur: Plan: Chronic nonunion of fracture. NWB to RLE. Continue PT/OT. Pain control measures (6) Hypothyroidism (acquired): Plan: Continue Levothyroxine, recent increased from 200mcg daily to 225mcg in mid Oct for elevated TSH. TSH repeated on 10/22 and is now normal at 1.1 (7) CKD stage 4 due to type 2 diabetes mellitus: Plan: (baseline creatinine 1.3-1.8). Monitor intake and output. Serial labs. Avoid nephrotoxins. (8) GERD (gastroesophageal reflux disease): Plan: Treated with protonix (9) Insulin-requiring or dependent type II diabetes mellitus: Plan: ADA diet. Now on an home insulin pump. Continue Jardiance. 139, 136, 157, 124 Hemoglobin A1c on 10/22 down to 7.2%. f/u with Endocrinology after discharge. (10) Anxiety: Plan: Stable on bupropion (11) Morbid obesity with BMI of 60.0-69.9, adult: Plan: Markedly elevated BMI. Weight loss - consider dietary advice and starting sitagliptin in am. She is going to be here for some time - already 5 weeks (12) Congestive heart failure: Plan: Acute on chronic combined systolic/diastolic CHF. Most recent ejection fraction 45%. Now resolved with diuresis. Continue current medication therapy Plan Anticipate eventual discharge to home with [facility] assistance when arrangements are finalized. 11/08 I met the patient's daughter today and she had no idea about the ramp installation at her house where the patient is going to go. We will discussed with case management in the morning Admission and Anticipated Discharge Date Admission Date: October 01, 2022 Subjective at noon, walking with her insulin pump about to get her blood sugar checked, cheerful with daughter at bedside. Later when I dropped around 5 PM she was crying because she is not going to get home on [place] No chest pain or shortness of breath. Per nursing the patient is giving herself insulin through her own insulin pump after they tell her her blood sugars Physical Exam Physical Exam: Severely obese pleasant lady, oneill facies, cheerful and sitting on her chair as usual on room air, Head and neck tracheostomy collar on, diffuse fine facial hair most prominently on chin, normal voice without including the tracheostomy stoma Chest diminished entry breath sounds bilaterally Abdomen obese nontender Trace edema pretibial, scattered scabs over lower legs Normal insight and judgment Results & Data Results & Data ([facility]) Vital Signs (Past 12 Hours) Vital Signs Temp Pulse Resp BP Pulse Ox O2 Del Method 11/08/22 15:25 36.6 C 74 16 120/78 94 Room Air 11/08/22 07:54 Room Air PG Care Time/CCT Total # of Minutes Spent Total Time Spent with Patient: Total time spent is greater than 50% in coordination of care (as documented) at patient's floor/unit and/or counseling patient: Coding Diagnoses SOB (shortness of breath) R06.02 Chronic diastolic congestive heart failure I50.32 Atypical chest pain R07.89 Weakness R53.1 Fracture of distal end of right femur S72.401A Hypothyroidism (acquired) E03.9 CKD stage 4 due to type 2 diabetes mellitus E11.22; N18.4 GERD (gastroesophageal reflux disease) K21.9 Insulin-requiring or dependent type II diabetes mellitus E11.9; Z79.4 Anxiety F41.9 Morbid obesity with BMI of 60.0-69.9, adult E66.01; Z68.44 Congestive heart failure I50.9
[2022-11-08] MEDS: ATORVASTATIN 40 MG TAB PO SCH (20:53)
[2022-11-08] MEDS: ALBUT/IPRATROP 3MG/0.5MG NEB 3 ML VIAL NEB PRN (22:14)
[2022-11-09] MEDS: PANTOprazole 40 MG TAB PO SCH (06:05)
[2022-11-09] MEDS: HEPARIN SOD 5,000 UNIT/0.5 ML VIAL SQ SCH ×3 (06:05→21:59)
[2022-11-09] MEDS: LEVOTHYROXINE SODIUM 25 MCG TABLET PO SCH (06:05)
[2022-11-09] MEDS: TORSEMIDE 20 MG TAB PO SCH (06:05)
[2022-11-09] MEDS: LEVOTHYROXINE SODIUM 200 MCG TABLET PO SCH (06:05)
[2022-11-09] MEDS: POTASSIUM CHLORIDE CRTAB 20 MEQ TABCR PO SCH (08:06)
[2022-11-09] MEDS: ASPIRIN 81 MG ECTAB PO SCH (08:06)
[2022-11-09] MEDS: SPIRONOLACTONE 25 MG TAB PO SCH (08:06)
[2022-11-09] MEDS: MULTIVITAMIN TAB PO SCH (08:06)
[2022-11-09] MEDS: FOLIC ACID 1 MG TAB PO SCH (08:06)
[2022-11-09] MEDS: ISOSORBIDE MONO EXTENDED REL 30 MG TABCR PO SCH (08:06)
[2022-11-09] MEDS: TOPIRAMATE 100 MG TAB PO SCH ×2 (08:06→22:00)
[2022-11-09] MEDS: DOCUSATE SODIUM 100 MG CAP PO SCH ×2 (08:07→22:00)
[2022-11-09] MEDS: buPROPion SR 100 MG TABCR PO SCH ×2 (08:07→22:00)
[2022-11-09] MEDS: METOPROLOL TARTRATE 25 MG TAB PO SCH ×2 (08:07→21:59)
[2022-11-09] MEDS: MAGNESIUM OXIDE 400 MG TAB PO SCH (08:07)
[2022-11-09] MEDS: ALBUT/IPRATROP 3MG/0.5MG NEB 3 ML VIAL NEB PRN ×2 (08:16→14:54)
[2022-11-09] MEDS: EMPAGLIFLOZIN 10 MG TAB PO SCH (09:24)
[2022-11-09] MEDS: BACITRACIN/POLYMYXIN B SULFATE 90 APPLN/28.4 GM TUBE EXT SCH ×2 (09:24→22:01)
[2022-11-09] MEDS: NYSTATIN POWDER 15GM BTL EXT SCH (09:24)
[2022-11-09] MEDS: INSULIN, Rapid-Acting PUMP SCH ×4 (10:29→22:01)
[2022-11-09] MEDS: ATORVASTATIN 40 MG TAB PO SCH (22:00)
--- NOTE | 2022-11-09 22:12 | Hospitalist Progress Note ---
Date of Service November 09, 2022 Assessment & Plan (1) SOB (shortness of breath): Plan: Acute on Chronic related to COPD, OHS, RASHAAD, CHF. Now resolved and back to baseline. Continue prn Duonebs and inhalers. Hypertonic saline nebs have been discontinued, no chest PT needed. Now at baseline and awaiting home health arrangements. (2) Chronic diastolic congestive heart failure: Plan: Acute on chronic combined systolic and diastolic CHF. Most recent ejection fraction 45%. Now back to baseline. Received some IV diuresis early on. Continue torsemide 20 mg daily and prn dose in the afternoon-for weight gain over 2 pounds-> she declines to take extra afternoon dose in the hospital due to difficulty getting to the bathroom quickly. She says she'll take the extra dose when she gets home. Continue spironolactone, metoprolol, isosorbide mononitrate, ASA, atorvastatin. Limit salt intake. (3) Atypical chest pain: Plan: related to acute HFpEF as above-resolved. No evidence of acute coronary syndrome. (4) Weakness: Plan: - Related to morbid obesity and chronic R femur fx with nonunion. On oxycodone as needed and Tylenol. PT/OT as often as possible - Case management for complex dc issues (5) Fracture of distal end of right femur: Plan: Chronic nonunion of fracture. NWB to RLE. Continue PT/OT. Pain control measures (6) Hypothyroidism (acquired): Plan: Continue Levothyroxine, recent increased from 200mcg daily to 225mcg in mid Oct for elevated TSH. TSH repeated on 10/22 and is now normal at 1.1 (7) CKD stage 4 due to type 2 diabetes mellitus: Plan: (baseline creatinine 1.3-1.8). Monitor intake and output. Serial labs. Avoid nephrotoxins. (8) GERD (gastroesophageal reflux disease): Plan: Treated with protonix (9) Insulin-requiring or dependent type II diabetes mellitus: Plan: ADA diet. Now on an home insulin pump. Continue Jardiance. Hemoglobin A1c on 10/22 down to 7.2%. f/u with Endocrinology after discharge. (10) Anxiety: Plan: Stable on bupropion (11) Morbid obesity with BMI of 60.0-69.9, adult: Plan: Markedly elevated BMI. Weight loss - consider dietary advice and starting sitagliptin - I was unable to 11/09 due to heavy patient load She is going to be here for some time - already 5 weeks (12) Congestive heart failure: Plan: Acute on chronic combined systolic/diastolic CHF. Most recent ejection fraction 45%. Now resolved with diuresis. Continue current medication therapy Plan Anticipate eventual discharge to home with [facility] assistance when arrangements are finalized. D/W Case m/t todaythe caregiving agency that was originally planned have dec ided not to go ahead. Others being searched. This will be a long drawn out process it seems. Admission and Anticipated Discharge Date Admission Date: October 01, 2022 Subjective [id number] pm, was cheerful and eating her dinner No complaint Physical Exam Physical Exam: Severely obese pleasant lady, oneill facies, cheerful and sitting on her chair as usual on room air, eating her dinner and unable to talk Chart by her with Before meals and at bedtime blood sugars with carbohydrate counts and the bolus insulin given by insulin pump Head and neck tracheostomy collar on, diffuse fine facial hair most prominently on chin, normal voice without including the tracheostomy stoma Trace edema pretibial, scattered scabs over lower legs Normal insight and judgment Results & Data Results & Data ([facility]) Vital Signs (Past 12 Hours) Vital Signs Temp Pulse Resp BP BP Pulse Ox O2 Del Method 11/09/22 21:54 37.0 C 86 18 118/71 94 Room Air 11/09/22 14:56 72 20 94 Room Air 11/09/22 14:42 36.8 C 78 16 105/54 L 94 Room Air Laboratory Results Abnormal lab results 11/09/22 11/09/22 11/09/22 Range/Units 11:54 16:50 20:23 POC Glucose 126 H 124 H 178 H (70-99) mg/dl PG Care Time/CCT Total # of Minutes Spent Total Time Spent with Patient: Total time spent is greater than 50% in coordination of care (as documented) at patient's floor/unit and/or counseling patient: Coding Level of Care Code 22518 Subseq Hosp Care Lvl 1 Diagnoses SOB (shortness of breath) R06.02 Chronic diastolic congestive heart failure I50.32 Atypical chest pain R07.89 Weakness R53.1 Fracture of distal end of right femur S72.401A Hypothyroidism (acquired) E03.9 CKD stage 4 due to type 2 diabetes mellitus E11.22; N18.4 GERD (gastroesophageal reflux disease) K21.9 Insulin-requiring or dependent type II diabetes mellitus E11.9; Z79.4 Anxiety F41.9 Morbid obesity with BMI of 60.0-69.9, adult E66.01; Z68.44 Congestive heart failure I50.9
[2022-11-09] MEDS: oxyCODONE HCL IR 5 MG TAB (IMMEDIATE RELEASE) PO PRN (23:42)
[2022-11-09] MEDS: ACETAMINOPHEN 325 MG TAB PO PRN (23:43)
[2022-11-10] MEDS: HEPARIN SOD 5,000 UNIT/0.5 ML VIAL SQ SCH ×3 (05:57→21:31)
[2022-11-10] MEDS: TORSEMIDE 20 MG TAB PO SCH (05:58)
[2022-11-10] MEDS: LEVOTHYROXINE SODIUM 25 MCG TABLET PO SCH (05:59)
[2022-11-10] MEDS: PANTOprazole 40 MG TAB PO SCH (05:59)
[2022-11-10] MEDS: LEVOTHYROXINE SODIUM 200 MCG TABLET PO SCH (05:59)
[2022-11-10] MEDS: ALBUT/IPRATROP 3MG/0.5MG NEB 3 ML VIAL NEB PRN ×2 (08:38→16:13)
[2022-11-10] MEDS: FOLIC ACID 1 MG TAB PO SCH (08:52)
[2022-11-10] MEDS: MULTIVITAMIN TAB PO SCH (08:52)
[2022-11-10] MEDS: AZITHROMYCIN 250 MG TAB PO SCH (08:52)
[2022-11-10] MEDS: ASPIRIN 81 MG ECTAB PO SCH (08:52)
[2022-11-10] MEDS: TOPIRAMATE 100 MG TAB PO SCH ×2 (08:53→21:27)
[2022-11-10] MEDS: DOCUSATE SODIUM 100 MG CAP PO SCH ×2 (08:53→21:31)
[2022-11-10] MEDS: buPROPion SR 100 MG TABCR PO SCH ×2 (08:53→21:30)
[2022-11-10] MEDS: EMPAGLIFLOZIN 10 MG TAB PO SCH (08:53)
[2022-11-10] MEDS: SPIRONOLACTONE 25 MG TAB PO SCH (08:53)
[2022-11-10] MEDS: POTASSIUM CHLORIDE CRTAB 20 MEQ TABCR PO SCH (08:53)
[2022-11-10] MEDS: ISOSORBIDE MONO EXTENDED REL 30 MG TABCR PO SCH (08:53)
[2022-11-10] MEDS: MAGNESIUM OXIDE 400 MG TAB PO SCH (08:53)
[2022-11-10] MEDS: METOPROLOL TARTRATE 25 MG TAB PO SCH ×2 (08:53→21:29)
[2022-11-10] MEDS: BACITRACIN/POLYMYXIN B SULFATE 90 APPLN/28.4 GM TUBE EXT SCH (08:57)
[2022-11-10] MEDS: INSULIN, Rapid-Acting PUMP SCH ×4 (10:01→20:33)
--- NOTE | 2022-11-10 15:58 | Hospitalist Progress Note ---
Date of Service November 10, 2022 Assessment & Plan (1) SOB (shortness of breath): Plan: Acute on Chronic related to COPD, OHS, RASHAAD, CHF. 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 Continue prn Duonebs and inhalers. Hypertonic saline nebs have been discontinued, no chest PT needed. Now at baseline and awaiting home health arrangements. (2) Chronic diastolic congestive heart failure: Plan: Acute on chronic combined systolic and diastolic CHF. Most recent ejection fraction 45%. Now back to baseline. Received some IV diuresis early on. Continue torsemide 20 mg daily and prn dose in the afternoon-for weight gain over 2 pounds. She declines to take extra afternoon dose in the hospital due to difficulty getting to the bathroom quickly. She says she'll take the extra dose when she gets home. Continue spironolactone, metoprolol, isosorbide mononitrate, ASA, atorvastatin. Limit salt intake. (3) Atypical chest pain: Plan: related to acute HFpEF as above. Resolved. No evidence of acute coronary syndrome. (4) Weakness: Plan: Related to morbid obesity and chronic R femur fx with nonunion. On oxycodone as needed and Tylenol. 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 Continue PT/OT. Pain control chloé sures (6) Hypothyroidism (acquired): Plan: Continue Levothyroxine, recent increased from 200mcg daily to 225mcg in mid Oct for elevated TSH. TSH repeated on 10/22 and is now normal at 1.1 (7) CKD stage 4 due to type 2 diabetes mellitus: Plan: (baseline creatinine 1.3-1.8). Monitor intake and output. Serial labs. Avoid nephrotoxins. (8) GERD (gastroesophageal reflux disease): Plan: Treated with protonix (9) Insulin-requiring or dependent type II diabetes mellitus: Plan: ADA diet. Now on an home insulin pump. Continue Jardiance. Hemoglobin A1c on 10/22 down to 7.2%. f/u with Endocrinology after discharge. (10) Anxiety: Plan: Stable on bupropion (11) Morbid obesity with BMI of 60.0-69.9, adult: Plan: Markedly elevated BMI. Weight loss. (12) Congestive heart failure: Plan: Acute on chronic combined systolic/diastolic CHF. Most recent ejection fraction 45%. Now resolved with diuresis. Continue current medication therapy Plan Anticipate eventual discharge to home with assistance when arrangements are finalized. Case management is having difficulty finding home care personnel Admission and Anticipated Discharge Date Admission Date: October 01, 2022 Subjective Alert and oriented. No acute distress. I spoke to her again today about SNF placement and she adamantly refuses. Oxygen saturations satisfactory on room air. Vital signs are stable. Review of Systems Review of Systems: Constitutional-no fever or chills ENT-no blurred vision, no double vision, no epistaxis, no sore throat Respiratory-no cough, no wheezing. Shortness of breath with exertion Cardiac-no palpitations, no chest pain, no syncope GI-no nausea, vomiting, diarrhea, melena, hematochezia -no urinary retention, no urinary incontinence, no dysuria, no hematuria Musculoskeletal-no joint pain, no muscle tenderness Skin-no bruising, no rashes, no pruritus Neuro-no isolated weakness, no paresthesia, no weakness Psych-no depression, no anxiety Physical Exam Physical Exam: General-alert and oriented x3, no fevers, no chills. Morbidly obese HEENT-head atraumatic and normocephalic, pupils equal and reactive to light, extraocular muscles intact. Neck-no lymphadenopathy or thyromegaly, trachea midline. Permanent tracheostomy present Chest-diminished breath sounds bilaterally. No rales, wheezing or rhonchi Cardiac-regular rate and rhythm, normal S1 and S2, no murmurs Abdomen-normal bowel sounds, nontender, no hepatosplenomegaly Extremities-chronic bilateral lower extremity edema noted. Neuro-cranial nerves II through XII intact, motor and sensory function within normal limits, strength symmetrical , no focal deficits Psych-somewhat depressed affect Results & Data Results & Data ([facility]) Vital Signs (Past 12 Hours) Vital Signs Temp Pulse Resp BP BP Pulse Ox O2 Del Method 11/10/22 15:00 36.6 C 73 16 118/68 95 Room Air 11/10/22 08:38 68 16 95 Room Air 11/10/22 07:54 36.5 C 74 16 116/69 94 Room Air Laboratory Results 10/22/22 09:59 10/22/22 09:59 PG Care Time/CCT Total # of Minutes Spent Total Time Spent with Patient: Total time spent is greater than 50% in coordination of care (as documented) at patient's floor/unit and/or counseling patient: Coding Level of Care Code 41815 Subseq Hosp Care Lvl 2 Diagnoses SOB (shortness of breath) R06.02 Chronic diastolic congestive heart failure I50.32 Atypical chest pain R07.89 Weakness R53.1 Fracture of distal end of right femur S72.401A Hypothyroidism (acquired) E03.9 CKD stage 4 due to type 2 diabetes mellitus E11.22; N18.4 GERD (gastroesophageal reflux disease) K21.9 Insulin-requiring or dependent type II diabetes mellitus E11.9; Z79.4 Anxiety F41.9 Morbid obesity with BMI of 60.0-69.9, adult E66.01; Z68.44 Congestive heart failure I50.9
[2022-11-10] MEDS: ATORVASTATIN 40 MG TAB PO SCH (21:28)
[2022-11-11] MEDS: LEVOTHYROXINE SODIUM 25 MCG TABLET PO SCH (05:43)
[2022-11-11] MEDS: LEVOTHYROXINE SODIUM 200 MCG TABLET PO SCH (05:43)
[2022-11-11] MEDS: PANTOprazole 40 MG TAB PO SCH (05:45)
[2022-11-11] MEDS: TORSEMIDE 20 MG TAB PO SCH (05:50)
[2022-11-11] MEDS: HEPARIN SOD 5,000 UNIT/0.5 ML VIAL SQ SCH ×3 (05:51→20:43)
[2022-11-11] MEDS: buPROPion SR 100 MG TABCR PO SCH ×2 (07:48→20:42)
[2022-11-11] MEDS: MAGNESIUM OXIDE 400 MG TAB PO SCH (07:48)
[2022-11-11] MEDS: SPIRONOLACTONE 25 MG TAB PO SCH (07:49)
[2022-11-11] MEDS: EMPAGLIFLOZIN 10 MG TAB PO SCH (07:49)
[2022-11-11] MEDS: ASPIRIN 81 MG ECTAB PO SCH (07:50)
[2022-11-11] MEDS: POTASSIUM CHLORIDE CRTAB 20 MEQ TABCR PO SCH (07:50)
[2022-11-11] MEDS: ISOSORBIDE MONO EXTENDED REL 30 MG TABCR PO SCH (07:51)
[2022-11-11] MEDS: DOCUSATE SODIUM 100 MG CAP PO SCH ×2 (07:51→20:44)
[2022-11-11] MEDS: METOPROLOL TARTRATE 25 MG TAB PO SCH ×2 (07:52→20:41)
[2022-11-11] MEDS: FOLIC ACID 1 MG TAB PO SCH (07:53)
[2022-11-11] MEDS: MULTIVITAMIN TAB PO SCH (07:53)
[2022-11-11] MEDS: TOPIRAMATE 100 MG TAB PO SCH ×2 (07:53→20:43)
[2022-11-11] MEDS: ALBUT/IPRATROP 3MG/0.5MG NEB 3 ML VIAL NEB PRN ×3 (08:17→22:18)
[2022-11-11] MEDS: INSULIN, Rapid-Acting PUMP SCH ×4 (10:17→20:46)
[2022-11-11] MEDS ORDERED: ERYTHROMYCIN ETHYLSUCC SUSP 200 MG/5 ML 100 ML BTL PO SCH (14:45)
--- NOTE | 2022-11-11 14:47 | Hospitalist Progress Note ---
Date of Service November 11, 2022 Assessment & Plan (1) SOB (shortness of breath): Plan: Acute on Chronic related to COPD, OHS, RASHAAD, CHF. 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 Continue prn Duonebs and inhalers. Hypertonic saline nebs have been discontinued, no chest PT needed. Now at baseline and awaiting home health arrangements. (2) Chronic diastolic congestive heart failure: Plan: Acute on chronic combined systolic and diastolic CHF. Most recent ejection fraction 45%. Now back to baseline. Received some IV diuresis early on. Continue torsemide 20 mg daily and prn dose in the afternoon-for weight gain over 2 pounds. She declines to take extra afternoon dose in the hospital due to difficulty getting to the bathroom quickly. She says she'll take the extra dose when she gets home. Continue spironolactone, metoprolol, isosorbide mononitrate, ASA, atorvastatin. Limit salt intake. (3) Atypical chest pain: Plan: related to acute HFpEF as above. Resolved. No evidence of acute coronary syndrome. (4) Weakness: Plan: Related to morbid obesity and chronic R femur fx with nonunion. On oxycodone as needed and Tylenol. 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 Continue PT/OT. Pain control chloé sures (6) Hypothyroidism (acquired): Plan: Continue Levothyroxine, recent increased from 200mcg daily to 225mcg in mid Oct for elevated TSH. TSH repeated on 10/22 and is now normal at 1.1 (7) CKD stage 4 due to type 2 diabetes mellitus: Plan: (baseline creatinine 1.3-1.8). Monitor intake and output. Serial labs. Avoid nephrotoxins. (8) GERD (gastroesophageal reflux disease): Plan: Treated with protonix (9) Insulin-requiring or dependent type II diabetes mellitus: Plan: ADA diet. Now on an home insulin pump. Continue Jardiance. Glucose 111 today, November 11. Hemoglobin A1c on 10/22 down to 7.2%. f/u with Endocrinology after discharge. (10) Anxiety: Plan: Stable on bupropion (11) Morbid obesity with BMI of 60.0-69.9, adult: Plan: Markedly elevated BMI. Weight loss. (12) Congestive heart failure: Plan: Acute on chronic combined systolic/diastolic CHF. Most recent ejection fraction 45%. Now resolved with diuresis. Continue current medication therapy Plan Anticipate eventual discharge to home with assistance when arrangements are finalized. Case management is having difficulty finding home care personnel Admission and Anticipated Discharge Date Admission Date: October 01, 2022 Subjective Alert and oriented. No new problems. She states she takes erythromycin 250 mg every Tuesday and Tuesday at home and this has been reordered at her request. I believe it is for recurrent bronchitis. Review of Systems Review of Systems: Constitutional-no fever or chills ENT-no blurred vision, no double vision, no epistaxis, no sore throat Respiratory-no cough, no wheezing. Shortness of breath with exertion Cardiac-no palpitations, no chest pain, no syncope GI-no nausea, vomiting, diarrhea, melena, hematochezia -no urinary retention, no urinary incontinence, no dysuria, no hematuria Musculoskeletal-no joint pain, no muscle tenderness Skin-no bruising, no rashes, no pruritus Neuro-no isolated weakness, no paresthesia, no weakness Psych-no depression, no anxiety Physical Exam Physical Exam: General-alert and oriented x3, no fevers, no chills. Morbidly obese HEENT-head atraumatic and normocephalic, pupils equal and reactive to light, extraocular muscles intact. Neck-no lymphadenopathy or thyromegaly, trachea midline. Permanent tracheostomy present Chest-diminished breath sounds bilaterally. No rales, wheezing or rhonchi Cardiac-regular rate and rhythm, normal S1 and S2, no murmurs Abdomen-normal bowel sounds, nontender, no hepatosplenomegaly Extremities-chronic bilateral lower extremity edema noted. Neuro-cranial nerves II through XII intact, motor and sensory function within normal limits, strength symmetrical , no focal deficits Psych-somewhat depressed affect Results & Data Results & Data ([facility]) Vital Signs (Past 12 Hours) Vital Signs Temp Pulse Resp BP Pulse Ox O2 Del Method 11/11/22 08:00 Room Air 11/11/22 08:17 78 18 95 Room Air 11/11/22 07:08 36.6 C 67 18 121/76 95 Room Air Laboratory Results 10/22/22 09:59 10/22/22 09:59 PG Care Time/CCT Total # of Minutes Spent Total Time Spent with Patient: Total time spent is greater than 50% in coordination of care (as documented) at patient's floor/unit and/or counseling patient: Coding Level of Care Code 81384 Subseq Hosp Care Lvl 2 Diagnoses SOB (shortness of breath) R06.02 Chronic diastolic congestive heart failure I50.32 Atypical chest pain R07.89 Weakness R53.1 Fracture of distal end of right femur S72.401A Hypothyroidism (acquired) E03.9 CKD stage 4 due to type 2 diabetes mellitus E11.22; N18.4 GERD (gastroesophageal reflux disease) K21.9 Insulin-requiring or dependent type II diabetes mellitus E11.9; Z79.4 Anxiety F41.9 Morbid obesity with BMI of 60.0-69.9, adult E66.01; Z68.44 Congestive heart failure I50.9
[2022-11-11] MEDS: ATORVASTATIN 40 MG TAB PO SCH (20:41)
[2022-11-11] MEDS: ACETAMINOPHEN 325 MG TAB PO PRN (23:49)
[2022-11-11] MEDS: oxyCODONE HCL IR 5 MG TAB (IMMEDIATE RELEASE) PO PRN (23:50)
[2022-11-12] MEDS: TORSEMIDE 20 MG TAB PO SCH (05:30)
[2022-11-12] MEDS: PANTOprazole 40 MG TAB PO SCH (05:31)
[2022-11-12] MEDS: LEVOTHYROXINE SODIUM 25 MCG TABLET PO SCH (05:31)
[2022-11-12] MEDS: LEVOTHYROXINE SODIUM 200 MCG TABLET PO SCH (05:31)
[2022-11-12] MEDS: HEPARIN SOD 5,000 UNIT/0.5 ML VIAL SQ SCH ×3 (05:31→21:00)
[2022-11-12] MEDS: ALBUT/IPRATROP 3MG/0.5MG NEB 3 ML VIAL NEB PRN ×3 (07:59→20:25)
[2022-11-12] MEDS: INSULIN, Rapid-Acting PUMP SCH ×4 (08:53→21:01)
[2022-11-12] MEDS: MULTIVITAMIN TAB PO SCH (08:54)
[2022-11-12] MEDS: SPIRONOLACTONE 25 MG TAB PO SCH (08:54)
[2022-11-12] MEDS: METOPROLOL TARTRATE 25 MG TAB PO SCH ×2 (08:55→20:59)
[2022-11-12] MEDS: DOCUSATE SODIUM 100 MG CAP PO SCH ×2 (08:55→21:01)
[2022-11-12] MEDS: ISOSORBIDE MONO EXTENDED REL 30 MG TABCR PO SCH (08:56)
[2022-11-12] MEDS: ASPIRIN 81 MG ECTAB PO SCH (08:56)
[2022-11-12] MEDS: TOPIRAMATE 100 MG TAB PO SCH ×2 (08:56→21:00)
[2022-11-12] MEDS: FOLIC ACID 1 MG TAB PO SCH (08:57)
[2022-11-12] MEDS: POTASSIUM CHLORIDE CRTAB 20 MEQ TABCR PO SCH (08:57)
[2022-11-12] MEDS: AZITHROMYCIN 250 MG TAB PO SCH (08:57)
[2022-11-12] MEDS: MAGNESIUM OXIDE 400 MG TAB PO SCH (08:57)
[2022-11-12] MEDS: buPROPion SR 100 MG TABCR PO SCH ×2 (08:58→21:00)
--- NOTE | 2022-11-12 14:18 | Hospitalist Progress Note ---
Date of Service November 12, 2022 Assessment & Plan (1) SOB (shortness of breath): Plan: Acute on Chronic related to COPD, OHS, RASHAAD, CHF. 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 Continue prn Duonebs and inhalers. Hypertonic saline nebs have been discontinued, no chest PT needed. Now at baseline and awaiting home health arrangements. (2) Chronic diastolic congestive heart failure: Plan: Acute on chronic combined systolic and diastolic CHF. Most recent ejection fraction 45%. Now back to baseline. Received some IV diuresis early on. Continue torsemide 20 mg daily and prn dose in the afternoon-for weight gain over 2 pounds. She declines to take extra afternoon dose in the hospital due to difficulty getting to the bathroom quickly. She says she'll take the extra dose when she gets home. Continue spironolactone, metoprolol, isosorbide mononitrate, ASA, atorvastatin. Limit salt intake. (3) Atypical chest pain: Plan: related to acute HFpEF as above. Resolved. No evidence of acute coronary syndrome. (4) Weakness: Plan: Related to morbid obesity and chronic R femur fx with nonunion. On oxycodone as needed and Tylenol. 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 Continue PT/OT. Pain control chloé sures (6) Hypothyroidism (acquired): Plan: Continue Levothyroxine, recent increased from 200mcg daily to 225mcg in mid Oct for elevated TSH. TSH repeated on 10/22 and is now normal at 1.1 (7) CKD stage 4 due to type 2 diabetes mellitus: Plan: (baseline creatinine 1.3-1.8). Monitor intake and output. Serial labs. Avoid nephrotoxins. (8) GERD (gastroesophageal reflux disease): Plan: Treated with protonix (9) Insulin-requiring or dependent type II diabetes mellitus: Plan: ADA diet. Now on an home insulin pump. Continue Jardiance. Hemoglobin A1c on 10/22 down to 7.2%. f/u with Endocrinology after discharge. (10) Anxiety: Plan: Stable on bupropion (11) Morbid obesity with BMI of 60.0-69.9, adult: Plan: Markedly elevated BMI. Weight loss. (12) Congestive heart failure: Plan: Acute on chronic combined systolic/diastolic CHF. Most recent ejection fraction 45%. Now resolved with diuresis. Continue current medication therapy Plan Anticipate eventual discharge to home with assistance when arrangements are finalized. Case management is having difficulty finding home care personnel Admission and Anticipated Discharge Date Admission Date: October 01, 2022 Subjective Alert and oriented. Pleasant. Stable. No new problems Review of Systems Review of Systems: Constitutional-no fever or chills ENT-no blurred vision, no double vision, no epistaxis, no sore throat Respiratory-no cough, no wheezing. Shortness of breath with exertion Cardiac-no palpitations, no chest pain, no syncope GI-no nausea, vomiting, diarrhea, melena, hematochezia -no urinary retention, no urinary incontinence, no dysuria, no hematuria Musculoskeletal-no joint pain, no muscle tenderness Skin-no bruising, no rashes, no pruritus Neuro-no isolated weakness, no paresthesia, no weakness Psych-no depression, no anxiety Physical Exam Physical Exam: General-alert and oriented x3, no fevers, no chills. Morbidly obese HEENT-head atraumatic and normocephalic, pupils equal and reactive to light, extraocular muscles intact. Neck-no lymphadenopathy or thyromegaly, trachea midline. Permanent tracheostomy present Chest-diminished breath sounds bilaterally. No rales, wheezing or rhonchi Cardiac-regular rate and rhythm, normal S1 and S2, no murmurs Abdomen-normal bowel sounds, nontender, no hepatosplenomegaly Extremities-chronic bilateral lower extremity edema noted. Neuro-cranial nerves II through XII intact, motor and sensory function within normal limits, strength symmetrical , no focal deficits Psych-somewhat depressed affect Results & Data Results & Data ([facility]) Vital Signs (Past 12 Hours) Vital Signs Temp Pulse Resp BP Pulse Ox O2 Del Method 11/12/22 08:20 Room Air 11/12/22 08:00 79 18 96 Room Air 11/12/22 07:46 36.8 C 78 18 145/70 H 93 Room Air Laboratory Results 10/22/22 09:59 10/22/22 09:59 PG Care Time/CCT Total # of Minutes Spent Total Time Spent with Patient: Total time spent is greater than 50% in coordination of care (as documented) at patient's floor/unit and/or counseling patient: Coding Level of Care Code 05551 Subseq Hosp Care Lvl 2 Diagnoses SOB (shortness of breath) R06.02 Chronic diastolic congestive heart failure I50.32 Atypical chest pain R07.89 Weakness R53.1 Fracture of distal end of right femur S72.401A Hypothyroidism (acquired) E03.9 CKD stage 4 due to type 2 diabetes mellitus E11.22; N18.4 GERD (gastroesophageal reflux disease) K21.9 Insulin-requiring or dependent type II diabetes mellitus E11.9; Z79.4 Anxiety F41.9 Morbid obesity with BMI of 60.0-69.9, adult E66.01; Z68.44 Congestive heart failure I50.9
[2022-11-12] MEDS: ATORVASTATIN 40 MG TAB PO SCH (20:59)
[2022-11-13] MEDS: HEPARIN SOD 5,000 UNIT/0.5 ML VIAL SQ SCH ×3 (05:23→20:04)
[2022-11-13] MEDS: PANTOprazole 40 MG TAB PO SCH (05:23)
[2022-11-13] MEDS: LEVOTHYROXINE SODIUM 25 MCG TABLET PO SCH (05:23)
[2022-11-13] MEDS: LEVOTHYROXINE SODIUM 200 MCG TABLET PO SCH (05:23)
[2022-11-13] MEDS: TORSEMIDE 20 MG TAB PO SCH (05:27)
[2022-11-13] MEDS: ALBUT/IPRATROP 3MG/0.5MG NEB 3 ML VIAL NEB PRN ×2 (07:58→15:20)
[2022-11-13] MEDS: MAGNESIUM OXIDE 400 MG TAB PO SCH (08:20)
[2022-11-13] MEDS: DOCUSATE SODIUM 100 MG CAP PO SCH ×2 (08:21→20:06)
[2022-11-13] MEDS: MULTIVITAMIN TAB PO SCH (08:22)
[2022-11-13] MEDS: SPIRONOLACTONE 25 MG TAB PO SCH (08:22)
[2022-11-13] MEDS: FOLIC ACID 1 MG TAB PO SCH (08:22)
[2022-11-13] MEDS: ASPIRIN 81 MG ECTAB PO SCH (08:23)
[2022-11-13] MEDS: METOPROLOL TARTRATE 25 MG TAB PO SCH ×2 (08:23→20:05)
[2022-11-13] MEDS: TOPIRAMATE 100 MG TAB PO SCH ×2 (08:23→20:07)
[2022-11-13] MEDS: buPROPion SR 100 MG TABCR PO SCH ×2 (08:23→20:06)
[2022-11-13] MEDS: POTASSIUM CHLORIDE CRTAB 20 MEQ TABCR PO SCH (08:24)
[2022-11-13] MEDS: ISOSORBIDE MONO EXTENDED REL 30 MG TABCR PO SCH (08:24)
[2022-11-13] MEDS: INSULIN, Rapid-Acting PUMP SCH ×4 (09:21→20:54)
--- NOTE | 2022-11-13 12:48 | Psychiatric Consultation ---
Date of Consultation November 13, 2022 Impression / Recommendations Impression 67 yo female, reportedly on longstanding Wellbutrin for anxiety (but is generally more for depressive symptoms), tearfulness in the setting of ongoing confinement to senior care and now rehospitalized as wishes she could be home and with her dog. She has expressed passive wish to family but has no intent or plan to harm herself. (1) Anxiety: (2) Adjustment disorder with depressed mood: Plan Continue current medication, may get more benefit from wellbutrin dosing pm dose at 2 pm rather than hs but this has been her longstanding dose schedule. she is not an immediate candidate for therapy given hospitalization/placement but liaison to provide support will be returning to a SNF so will be in supervised setting when medically cleared. Psych History Identifying Data 67 yo female from [place] residing at [facility] prior to admission. Admit medically on 10/01/22 for chest pain superimposed on chronic medical issues of morbid obesity, right femur fracture unlikely to heal further, nonambulatory status, tracheostomy dependent, COPD, diastolic heart failure, anxiety, DM2, GERD, CKD4, hypothyroidism, HTN, CAD. Chief Complaint "I just want to be home with my dog." History of Present Illness As per liaison assessment last pm: Met with pt for initial consult. Consulted for SI reported by her daughter. Pt was tearful during interaction. Pt stated s he has had some thoughts of dying and SI. She denies any plan or intention to act on these thoughts. She states, "I just want to go home." She voices feeling frustrated over her ongoing hospitalization and states she has been in the hospital since March. She is refusing to return to [facility] as she reports they neglected her. She denies any hx of SA or inpt psych hospitalizations. She denies outpt providers. She is currently prescribed Wellbutrin. She states she has been on the same medication for "years" with no recent dose changes. Medication prescribed by her PCP. She states she has tried other antidepressants but unsure of the names. Pt was provided support. She states she "misses her daughter and her dog". Her daughter lives with her at home, but like previously stated, she has not been able to return to her home due to medical issues and lack of home health staff. She does report her father completed suicide in 2008 and pt was the one who found him. PHQ9=16+2. She denies any further needs. Encouraged pt to reach out to services to offer emotional support. Verbalized understanding. Today the patient reconfirms that she has no hx of suicide attempts or inpatient hospitalizations. Wellbutrin has traditionally worked well for her. "I know it's just because I haven't been home in so long, I miss my jany." Allergies Allergy/AdvReac Type Severity Reaction Status Date / Time Penicillins Allergy Intermediate Hives Verified 10/01/22 19:48 amitriptyline Allergy Unknown ON EMBASSY Verified 10/01/22 19:48 OF HEARTHSIDE MED LIST doxycycline Allergy Unknown ON EMBASSY Verified 10/01/22 19:48 OF HEARTHSIDE MED LIST guaifenesin Allergy Unknown ON EMBASSY Verified 10/01/22 19:48 OF HEARTHSIDE MED LIST metformin Allergy Unknown ON EMBASSY Verified 10/01/22 19:48 OF HEARTHSIDE MED LIST phenylephrine Allergy Unknown ON EMBASSY Verified 10/01/22 19:48 OF HEARTHSIDE MED LIST pseudoephedrine Allergy Unknown ON EMBASSY Verified 10/01/22 19:48 OF HEARTHSIDE MED LIST tetracycline Allergy Unknown ON EMBASSY Verified 10/01/22 19:48 OF HEARTHSIDE MED LIST venlafaxine [From Effexor] Allergy Unknown ON EMBASSY Verified 10/01/22 19:48 OF HEARTHSIDE MED LIST gabapentin AdvReac Intermediate BECOMES Verified 10/01/22 19:48 AGGRESSIVE Home Medications Medication Instructions Recorded Confirmed Type aspirin 81 mg tablet,delayed 81 mg PO QAM 04/06/19 10/01/22 History release (Robert Low Dose Aspirin) bupropion HCl 100 mg tablet,12 hr See Rx Instructions .Route .COMPLEX 04/06/19 10/01/22 History sustained-release metoprolol tartrate 25 mg tablet 12.5 mg PO BID 04/06/19 10/01/22 History multivitamin 1 tab PO QAM 04/06/19 10/01/22 History pantoprazole 40 mg tablet,delayed 40 mg PO DAILYBB 04/06/19 10/01/22 History release spironolactone 25 mg tablet 25 mg PO QAM 04/06/19 10/01/22 History topiramate 100 mg tablet 100 mg PO BID 04/06/19 10/01/22 History Oxygen Home #1 ea 06/28/19 03/22/22 History nitroglycerin 0.4 mg sublingual 0.4 mg sublingual DIRECTED PRN 06/28/19 10/01/22 History tablet Chest Pain nebulizers #1 ea 12/24/20 10/04/22 Rx betamethasone dipropionate 0.05 % 1 applic topical BID PRN Skin 02/27/21 10/01/22 History topical cream Irritation ipratropium 0.5 mg-albuterol 3 mg 3 ml inhalation Q4H PRN COUGHING, 02/27/21 10/01/22 History (2.5 mg base)/3 mL nebulization WHEEZING, SHORTNESS OF BREATH soln folic acid 1 mg tablet 1 mg PO QAM #0 tabs 04/19/21 10/01/22 Rx blood sugar diagnostic (Contour #300 ea 09/29/21 10/04/22 Rx Next Test Strips) albuterol sulfate 90 mcg/actuation 2 puff inhalation Q4 PRN Shortness 11/25/21 10/01/22 History aerosol inhaler Of Breath atorvastatin 40 mg tablet 40 mg PO QPM #90 tabs 01/14/22 10/01/22 Rx acetaminophen 500 mg tablet 500 mg PO QPM 03/23/22 10/01/22 History (Tylenol Extra Strength) acidophilus 100 million 1 cap PO QAM 03/23/22 10/01/22 History cell-pectin, citrus 10 mg capsule torsemide 10 mg tablet 10 mg PO BID 07/24/22 10/01/22 History insulin glargine 100 unit/mL (3 80 unit (0.8 mL) subcut BID #48 mL 09/07/22 10/01/22 Rx mL) subcutaneous pen isosorbide mononitrate 30 mg 30 mg PO QAM #30 tabs 09/07/22 10/01/22 Rx tablet,extended release 24 hr oxycodone 5 mg tablet 10 mg PO Q8H PRN pain #10 tabs 09/07/22 10/01/22 Rx acetaminophen 325 mg tablet 650 mg PO Q6H PRN FEVER/PAIN 10/01/22 10/01/22 History (Tylenol) docusate sodium 100 mg capsule 100 mg PO BID 10/01/22 10/01/22 History insulin lispro 100 unit/mL 1 sliding scale dose subcut 10/01/22 10/01/22 History subcutaneous pen (Humalog KwikPen USEASDIRECTD (U-100) Insulin) ipratropium 20 mcg-albuterol 100 1 puff inhalation QID 10/01/22 10/01/22 History mcg/actuation mist for inhalation (Combivent Respimat) levothyroxine 200 mcg tablet 200 mcg PO DAILYBB 10/01/22 10/01/22 History levothyroxine 25 mcg tablet 25 mcg PO DAILYBB 10/01/22 10/01/22 History magnesium oxide 400 mg PO QAM 10/01/22 10/01/22 History potassium chloride 20 mEq 20 meq PO BID 10/01/22 10/01/22 History tablet,extended release sulfamethoxazole 800 1 tab PO BID 10/01/22 10/01/22 History mg-trimethoprim 160 mg tablet (Bactrim DS) Personal History Beliefs That Will Affect Care: None Patient History Medical History Ambulatory dysfunction Breathlessness Chest pain CHF (congestive heart failure) CKD stage 4 due to type 2 diabetes mellitus Dyslipidemia Fluid overload HTN (hypertension) Insulin-requiring or dependent type II diabetes mellitus MRSA (methicillin resistant staph aureus) culture positive "sputum 11/2015" Right ventricular dysfunction Sepsis Surgical History History of appendectomy History of cholecystectomy History of hysterectomy History of tonsillectomy and adenoidectomy S/P IVC filter Family History Mother Coronary heart disease COPD (chronic obstructive pulmonary disease) Father Suicide Hung himself. Pt found him. Unknown Lung cancer Social History Smoking Status: Never smoker Tobacco Type: Cigarettes Second Hand Exposure: No; Hx Alcohol Use: No Hx Substance Use: No Preferred Language: Filipino Communication Ability: Effective Visual Impairment: Limited Corporate Development Analyst Required: No Beliefs That Will Affect Care: None marital status: Current Living Situation: Custodial Current Living Situation Comment: came from [facility] doesn't want to go back current occupational status: disabled How many Children do You have: 1 Other Information That Helps Us Care for You: No Feels Safe at Home: Yes Safety Concerns: Feels Safe At This Time Assistive Devices: Bedside Commode, Hospital Bed, Oxygen - at Night, Walker, Wheelchair and Other Assistive Devices Comment: suction machine, trach supplies Physical Exam Psychiatric: Orientation: alert and oriented x 3 Apperance: appropriately dressed and appropriately groomed Eye Contact: good eye contact Motor Behavior: no abnormal motor movements Speech: normal rate/rhythm/volume of speech Affect: + depressed affect Mood: + depressed mood Thought Process: goal directed thought process Thought Content: reality based without delusions Suicidal Thoughts: denies suicidal thoughts Homicidal Thoughts: denies homicidal thoughts Hallucinations: no auditory hallucinations and no visual hallucinations Cognition: attention grossly intact and language grossly intact Estimated Intelligence: consistent with education level Vital Signs (Past 24 Hours): Last Vital Signs Temp 36.8 C 11/13/22 08:05 Pulse 70 11/13/22 08:05 Resp 16 11/13/22 08:05 BP 126/73 11/13/22 08:05 Pulse Ox 92 11/13/22 08:05 O2 Del Method Trach Collar 11/13/22 08:05 O2 Flow Rate 6 11/11/22 22:19 FiO2 28 11/11/22 22:19 Review of Systems All systems reviewed & are unremarkable except as noted in HPI & below Results & Data (PSY) Laboratory Results 11/13/22 11/13/22 11/12/22 Range/Units 12:11 07:45 20:38 POC Glucose 140 H 146 H 158 H (70-99) mg/dl 11/12/22 Range/Units 17:21 POC Glucose 219 H (70-99) mg/dl Medications Administered Acetaminophen (Acetaminophen 325 Mg Tab) 650 mg PO Q4H PRN PRN Reason: Pain or Fever Stop: 12/01/22 12:25 Last Admin: 11/11/22 23:49 Dose: 650 mg Documented By: Admin: 11/09/22 23:43 Dose: 650 mg Documented By: Admin: 11/07/22 10:57 Dose: 650 mg Documented By: [id number] Admin: 11/06/22 00:27 Dose: 650 mg Documented By: Admin: 11/05/22 15:26 Dose: 650 mg Documented By: Admin: 11/04/22 14:54 Dose: 650 mg Documented By: Admin: 11/03/22 13:23 Dose: 650 mg Documented By: JORGE LUIS Admin: 11/02/22 14:42 Dose: 650 mg Documented By: JORGE LUIS Admin: 11/01/22 12:32 Dose: 650 mg Documented By: JORGE LUIS Albuterol (Albut/Ipratrop 3mg/0.5mg Neb 3 Ml Vial) 3 ml NEB Q4R PRN; Protocol PRN Reason: wheezing Stop: 12/06/22 10:59 Last Admin: 11/13/22 07:58 Dose: 3 ml Documented By: Admin: 11/12/22 20:25 Dose: 3 ml Documented By: Admin: 11/12/22 15:15 Dose: 3 ml Documented By: [email or web address] Admin: 11/12/22 07:59 Dose: 3 ml Documented By: Admin: 11/11/22 22:18 Dose: 3 ml Documented By: Admin: 11/11/22 15:53 Dose: 3 ml Documented By: Admin: 11/11/22 08:17 Dose: 3 ml Documented By: Admin: 11/10/22 16:13 Dose: 3 ml Documented By: Admin: 11/10/22 08:38 Dose: 3 ml Documented By: Admin: 11/09/22 14:54 Dose: 3 ml Documented By: Admin: 11/09/22 08:16 Dose: 3 ml Documented By: Admin: 11/08/22 22:14 Dose: 3 ml Documented By: Admin: 11/07/22 15:09 Dose: 3 ml Documented By: Admin: 11/07/22 07:58 Dose: 3 ml Documented By: Admin: 11/06/22 19:57 Dose: 3 ml Documented By: Admin: 11/06/22 08:23 Dose: 3 ml Documented By: [facility] Aspirin (Aspirin 81 Mg Ectab) 81 mg PO QAM ASIYA Stop: 12/02/22 08:59 Last Admin: 11/13/22 08:23 Dose: 81 mg Documented By: Admin: 11/12/22 08:56 Dose: 81 mg Documented By: Admin: 11/11/22 07:50 Dose: 81 mg Documented By: Admin: 11/10/22 08:52 Dose: 81 mg Documented By: Admin: 11/09/22 08:06 Dose: 81 mg Documented By: Admin: 11/08/22 07:50 Dose: 81 mg Documented By: [id number] Admin: 11/07/22 07:42 Dose: 81 mg Documented By: [id number] Admin: 11/06/22 08:15 Dose: 81 mg Documented By: Admin: 11/05/22 08:41 Dose: 81 mg Documented By: Admin: 11/04/22 10:11 Dose: 81 mg Documented By: Admin: 11/03/22 08:31 Dose: 81 mg Documented By: JORGE LUIS Admin: 11/02/22 09:00 Dose: 81 mg Documented By: JORGE LUIS Admin: 11/01/22 09:24 Dose: 81 mg Documented By: JORGE LUIS Admin: 10/31/22 09:39 Dose: 81 mg Documented By: Admin: 10/30/22 08:15 Dose: 81 mg Documented By: Admin: 10/29/22 08:22 Dose: 81 mg Documented By: Admin: 10/28/22 07:47 Dose: 81 mg Documented By: Admin: 10/27/22 08:09 Dose: 81 mg Documented By: Admin: 10/26/22 07:49 Dose: 81 mg Documented By: [id number] Admin: 10/25/22 09:14 Dose: 81 mg Documented By: [id number] Admin: 10/24/22 09:47 Dose: 81 mg Documented By: Admin: 10/23/22 08:24 Dose: 81 mg Documented By: Admin: 10/22/22 09:39 Dose: 81 mg Documented By: [id number] Admin: 10/21/22 08:45 Dose: 81 mg Documented By: Admin: 10/20/22 09:17 Dose: 81 mg Documented By: RADHA(2) Admin: 10/19/22 09:16 Dose: 81 mg Documented By: RADHA(2) Admin: 10/18/22 09:26 Dose: 81 mg Documented By: Admin: 10/17/22 08:58 Dose: 81 mg Documented By: Admin: 10/16/22 08:48 Dose: 81 mg Documented By: Admin: 10/15/22 08:34 Dose: 81 mg Documented By: Admin: 10/14/22 08:22 Dose: 81 mg Documented By: [email or web address] Admin: 10/13/22 08:34 Dose: 81 mg Documented By: Admin: 10/12/22 08:25 Dose: 81 mg Documented By: KDD(2) Admin: 10/11/22 09:25 Dose: 81 mg Documented By: Admin: 10/10/22 08:52 Dose: 81 mg Documented By: KDD(2) Admin: 10/09/22 08:19 Dose: 81 mg Documented By: KDD(2) Admin: 10/08/22 08:48 Dose: 81 mg Documented By: Admin: 10/07/22 09:18 Dose: 81 mg Documented By: Admin: 10/06/22 09:09 Dose: 81 mg Documented By: Admin: 10/05/22 08:21 Dose: 81 mg Documented By: [id number] Admin: 10/04/22 08:42 Dose: 81 mg Documented By: [id number] Admin: 10/03/22 09:51 Dose: 81 mg Documented By: Admin: 10/02/22 08:24 Dose: 81 mg Documented By: RRR Atorvastatin Calcium (Atorvastatin 40 Mg Tab) 40 mg PO QPM ASIYA Stop: 11/30/22 21:19 Last Admin: 11/12/22 20:59 Dose: 40 mg Documented By: JLP(2) Admin: 11/11/22 20:41 Dose: 40 mg Documented By: Admin: 11/10/22 21:28 Dose: 40 mg Documented By: Admin: 11/09/22 22:00 Dose: 40 mg Documented By: Admin: 11/08/22 20:53 Dose: 40 mg Documented By: Admin: 11/07/22 22:26 Dose: 40 mg Documented By: Admin: 11/06/22 21:04 Dose: 40 mg Documented By: EML(2) Admin: 11/05/22 20:01 Dose: 40 mg Documented By: Admin: 11/04/22 21:10 Dose: 40 mg Documented By: Admin: 11/03/22 20:54 Dose: 40 mg Documented By: Admin: 11/02/22 21:27 Dose: 40 mg Documented By: Admin: 11/01/22 21:09 Dose: 40 mg Documented By: Admin: 10/31/22 22:13 Dose: 40 mg Documented By: MARICRUZ Azithromycin (Azithromycin 250 Mg Tab) 250 mg PO MoWeFr [facility] Stop: 11/26/22 08:59 Last Admin: 11/12/22 08:57 Dose: 250 mg Documented By: Admin: 11/10/22 08:52 Dose: 250 mg Documented By: Admin: 11/08/22 07:50 Dose: 250 mg Documented By: [id number] Admin: 11/05/22 08:41 Dose: 250 mg Documented By: Admin: 11/03/22 08:29 Dose: 250 mg Documented By: JORGE LUIS Admin: 11/01/22 08:21 Dose: 250 mg Documented By: JORGE LUIS Admin: 10/29/22 08:21 Dose: 250 mg Documented By: Admin: 10/27/22 08:10 Dose: 250 mg Documented By: LARRY Bupropion HCl (Bupropion Sr 100 Mg Tabcr) [facility] Stop: 12/02/22 08:59 Last Admin: 11/13/22 08:23 Dose: 100 mg Documented By: Admin: 11/12/22 08:58 Dose: 100 mg Documented By: [email or web address] Admin: 11/11/22 07:48 Dose: 100 mg Documented By: Admin: 11/10/22 08:53 Dose: 100 mg Documented By: Admin: 11/09/22 08:07 Dose: 100 mg Documented By: Admin: 11/08/22 07:50 Dose: 100 mg Documented By: [id number] Admin: 11/07/22 07:42 Dose: 100 mg Documented By: [id number] Admin: 11/06/22 08:16 Dose: 100 mg Documented By: Admin: 11/05/22 08:42 Dose: 100 mg Documented By: Admin: 11/04/22 10:12 Dose: 100 mg Documented By: Admin: 11/03/22 08:27 Dose: 100 mg Documented By: JORGE LUIS Admin: 11/02/22 08:57 Dose: 100 mg Documented By: JORGE LUIS Admin: 11/01/22 08:22 Dose: 100 mg Documented By: JORGE LUIS Admin: 10/31/22 09:39 Dose: 100 mg Documented By: Admin: 10/30/22 08:16 Dose: 100 mg Documented By: Admin: 10/29/22 08:20 Dose: 100 mg Documented By: Admin: 10/28/22 07:46 Dose: 100 mg Documented By: Admin: 10/27/22 08:09 Dose: 100 mg Documented By: Admin: 10/26/22 07:50 Dose: 100 mg Documented By: [id number] Admin: 10/25/22 09:14 Dose: 100 mg Documented By: [id number] Admin: 10/24/22 09:46 Dose: 100 mg Documented By: Admin: 10/23/22 08:25 Dose: 100 mg Documented By: Admin: 10/22/22 09:41 Dose: 100 mg Documented By: [id number] Admin: 10/21/22 08:46 Dose: 100 mg Documented By: Admin: 10/20/22 09:16 Dose: 100 mg Documented By: EAM(2) Admin: 10/19/22 09:16 Dose: 100 mg Documented By: EAM(2) Admin: 10/18/22 09:26 Dose: 100 mg Documented By: Admin: 10/17/22 08:58 Dose: 100 mg Documented By: Admin: 10/16/22 08:46 Dose: 100 mg Documented By: Admin: 10/15/22 08:35 Dose: 100 mg Documented By: Admin: 10/14/22 08:22 Dose: 100 mg Documented By: Admin: 10/13/22 08:33 Dose: 100 mg Documented By: Admin: 10/12/22 08:25 Dose: 100 mg Documented By: CALLUMD(2) Admin: 10/11/22 09:23 Dose: 100 mg Documented By: Admin: 10/10/22 08:51 Dose: 100 mg Documented By: KDD(2) Admin: 10/09/22 08:20 Dose: 100 mg Documented By: KDD(2) Admin: 10/08/22 08:48 Dose: 100 mg Documented By: Admin: 10/07/22 09:19 Dose: 100 mg Documented By: Admin: 10/06/22 09:09 Dose: 100 mg Documented By: Admin: 10/05/22 08:23 Dose: 100 mg Documented By: [id number] Admin: 10/04/22 08:42 Dose: 100 mg Documented By: [id number] Admin: 10/03/22 09:51 Dose: 100 mg Documented By: Admin: 10/02/22 08:24 Dose: 100 mg Documented By: RRR Bupropion HCl (Bupropion Sr 100 Mg Tabcr) 200 mg PO PM ASIYA Stop: 12/02/22 21:59 Last Admin: 11/12/22 21:00 Dose: 200 mg Documented By: JLP(2) Admin: 11/11/22 20:42 Dose: 200 mg Documented By: Admin: 11/10/22 21:30 Dose: 200 mg Documented By: Admin: 11/09/22 22:00 Dose: 200 mg Documented By: Admin: 11/08/22 20:52 Dose: 200 mg Documented By: Admin: 11/07/22 22:26 Dose: 200 mg Documented By: Admin: 11/06/22 21:09 Dose: 200 mg Documented By: EML(2) Admin: 11/05/22 20:01 Dose: 200 mg Documented By: Admin: 11/04/22 21:11 Dose: 200 mg Documented By: Admin: 11/03/22 20:56 Dose: 200 mg Documented By: Admin: 11/02/22 21:28 Dose: 200 mg Documented By: Admin: 11/01/22 21:10 Dose: 200 mg Documented By: Admin: 10/31/22 20:37 Dose: 200 mg Documented By: Admin: 10/30/22 21:11 Dose: 200 mg Documented By: Admin: 10/29/22 19:50 Dose: 200 mg Documented By: Admin: 10/28/22 21:07 Dose: 200 mg Documented By: Admin: 10/27/22 20:35 Dose: 200 mg Documented By: Admin: 10/26/22 21:09 Dose: 200 mg Documented By: Admin: 10/25/22 20:54 Dose: 200 mg Documented By: Admin: 10/24/22 21:08 Dose: 200 mg Documented By: Admin: 10/23/22 21:39 Dose: 200 mg Documented By: [email or web address] Admin: 10/22/22 21:33 Dose: 200 mg Documented By: Admin: 10/21/22 21:24 Dose: 200 mg Documented By: Admin: 10/20/22 22:39 Dose: 200 mg Documented By: Admin: 10/19/22 21:55 Dose: 200 mg Documented By: Admin: 10/18/22 22:30 Dose: 200 mg Documented By: Admin: 10/17/22 21:48 Dose: 200 mg Documented By: Admin: 10/16/22 21:15 Dose: 200 mg Documented By: Admin: 10/15/22 20:42 Dose: 200 mg Documented By: Admin: 10/14/22 20:25 Dose: 200 mg Documented By: Admin: 10/13/22 19:13 Dose: 200 mg Documented By: Admin: 10/12/22 19:29 Dose: 200 mg Documented By: Admin: 10/11/22 20:25 Dose: 200 mg Documented By: Admin: 10/10/22 20:19 Dose: 200 mg Documented By: Admin: 10/09/22 20:31 Dose: 200 mg Documented By: Admin: 10/08/22 21:04 Dose: 200 mg Documented By: Admin: 10/07/22 21:35 Dose: 200 mg Documented By: Admin: 10/06/22 21:54 Dose: 200 mg Documented By: Admin: 10/05/22 20:25 Dose: 200 mg Documented By: Admin: 10/04/22 21:05 Dose: 200 mg Documented By: Admin: 10/03/22 21:57 Dose: 200 mg Documented By: Admin: 10/02/22 21:45 Dose: 200 mg Documented By: Admin: 10/01/22 23:09 Dose: 200 mg Documented By: MG Diclofenac Sodium (Diclofenac Sod 1% Gel 100 Gm Tube) 2 gm EXT BID PRN; Protoco l PRN Reason: joint pain Stop: 11/21/22 08:59 Last Admin: 11/01/22 08:25 Dose: 2 gm Documented By: JORGE LUIS Admin: 10/30/22 21:19 Dose: 2 gm Documented By: Admin: 10/30/22 06:28 Dose: 2 gm Documented By: Admin: 10/28/22 05:49 Dose: 2 gm Documented By: Admin: 10/26/22 07:53 Dose: 2 gm Documented By: [id number] Admin: 10/25/22 21:07 Dose: 2 gm Documented By: Admin: 10/25/22 09:13 Dose: 2 gm Documented By: [id number] Admin: 10/24/22 21:27 Dose: 2 gm Documented By: Admin: 10/22/22 16:00 Dose: 2 gm Documented By: [id number] Docusate Sodium (Docusate Sodium 100 Mg Cap) 100 mg PO BID ASIYA Stop: 12/03/22 09:59 Last Admin: 11/13/22 08:21 Dose: 100 mg Documented By: Admin: 11/12/22 21:01 Dose: 100 mg Documented By: BILLP(2) Admin: 11/12/22 08:55 Dose: 100 mg Documented By: Admin: 11/11/22 20:44 Dose: 100 mg Documented By: Admin: 11/11/22 07:51 Dose: 100 mg Documented By: Admin: 11/10/22 21:31 Dose: 100 mg Documented By: Admin: 11/10/22 08:53 Dose: 100 mg Documented By: Admin: 11/09/22 22:00 Dose: 100 mg Documented By: Admin: 11/09/22 08:07 Dose: 100 mg Documented By: Admin: 11/08/22 20:52 Dose: 100 mg Documented By: Admin: 11/08/22 07:50 Dose: 100 mg Documented By: [id number] Admin: 11/07/22 22:25 Dose: 100 mg Documented By: Admin: 11/07/22 07:43 Dose: 100 mg Documented By: [id number] Admin: 11/06/22 21:06 Dose: 100 mg Documented By: EML(2) Admin: 11/06/22 08:15 Dose: 100 mg Documented By: Admin: 11/05/22 20:01 Dose: 100 mg Documented By: Admin: 11/05/22 08:42 Dose: 100 mg Documented By: Admin: 11/04/22 21:11 Dose: 100 mg Documented By: Admin: 11/04/22 10:13 Dose: 100 mg Documented By: Admin: 11/03/22 20:55 Dose: 100 mg Documented By: Admin: 11/03/22 10:14 Dose: 100 mg Documented By: JORGE LUIS Folic Acid (Folic Acid 1 Mg Tab) 1 mg PO QAM ASIYA Stop: 12/02/22 08:59 Last Admin: 11/13/22 08:22 Dose: 1 mg Documented By: Admin: 11/12/22 08:57 Dose: 1 mg Documented By: Admin: 11/11/22 07:53 Dose: 1 mg Documented By: Admin: 11/10/22 08:52 Dose: 1 mg Documented By: Admin: 11/09/22 08:06 Dose: 1 mg Documented By: Admin: 11/08/22 07:51 Dose: 1 mg Documented By: [id number] Admin: 11/07/22 07:42 Dose: 1 mg Documented By: [id number] Admin: 11/06/22 08:16 Dose: 1 mg Documented By: Admin: 11/05/22 08:43 Dose: 1 mg Documented By: Admin: 11/04/22 10:14 Dose: 1 mg Documented By: Admin: 11/03/22 08:28 Dose: 1 mg Documented By: JORGE LUIS Admin: 11/02/22 08:58 Dose: 1 mg Documented By: JORGE LUIS Admin: 11/01/22 09:23 Dose: 1 mg Documented By: JORGE LUIS Admin: 10/31/22 09:38 Dose: 1 mg Documented By: Admin: 10/30/22 09:35 Dose: 1 mg Documented By: Admin: 10/29/22 08:20 Dose: 1 mg Documented By: Admin: 10/28/22 07:46 Dose: 1 mg Documented By: Admin: 10/27/22 08:09 Dose: 1 mg Documented By: Admin: 10/26/22 07:49 Dose: 1 mg Documented By: [id number] Admin: 10/25/22 09:15 Dose: 1 mg Documented By: [id number] Admin: 10/24/22 09:46 Dose: 1 mg Documented By: Admin: 10/23/22 08:27 Dose: 1 mg Documented By: Admin: 10/22/22 09:40 Dose: 1 mg Documented By: [id number] Admin: 10/21/22 08:47 Dose: 1 mg Documented By: Admin: 10/20/22 09:17 Dose: 1 mg Documented By: EAFabrizio(2) Admin: 10/19/22 09:16 Dose: 1 mg Documented By: EAFabrizio(2) Admin: 10/18/22 09:26 Dose: 1 mg Documented By: JLChristopher Admin: 10/17/22 08:58 Dose: 1 mg Documented By: Admin: 10/16/22 08:46 Dose: 1 mg Documented By: Admin: 10/15/22 08:35 Dose: 1 mg Documented By: Admin: 10/14/22 08:22 Dose: 1 mg Documented By: Admin: 10/13/22 08:55 Dose: 1 mg Documented By: Admin: 10/12/22 08:24 Dose: 1 mg Documented By: DELANEY(2) Admin: 10/11/22 09:22 Dose: 1 mg Documented By: Admin: 10/10/22 08:51 Dose: 1 mg Documented By: DELANEY(2) Admin: 10/09/22 08:19 Dose: 1 mg Documented By: DELANEY(2) Admin: 10/08/22 08:48 Dose: 1 mg Documented By: JLChristopher Admin: 10/07/22 09:18 Dose: 1 mg Documented By: Admin: 10/06/22 09:09 Dose: 1 mg Documented By: Admin: 10/05/22 08:23 Dose: 1 mg Documented By: [id number] Admin: 10/04/22 08:44 Dose: 1 mg Documented By: [id number] Admin: 10/03/22 09:51 Dose: 1 mg Documented By: Admin: 10/02/22 08:24 Dose: 1 mg Documented By: DANIELLE Heparin Sodium (Porcine) (Heparin Sod 5,000 Unit/0.5 Ml Vial) 5,000 units SQ Q8 ASIYA Stop: 12/02/22 21:59 Last Admin: 11/13/22 05:23 Dose: 5,000 units Documented By: JOSEPHINE(2) Admin: 11/12/22 21:00 Dose: 5,000 units Documented By: JOSEPHINE(2) Admin: 11/12/22 14:58 Dose: 5,000 units Documented By: Admin: 11/12/22 05:31 Dose: 5,000 units Documented By: Admin: 11/11/22 20:43 Dose: 5,000 units Documented By: Admin: 11/11/22 17:47 Dose: 5,000 units Documented By: Admin: 11/11/22 05:51 Dose: 5,000 units Documented By: Admin: 11/10/22 21:31 Dose: 5,000 units Documented By: Admin: 11/10/22 17:01 Dose: 5,000 units Documented By: Admin: 11/10/22 05:57 Dose: 5,000 units Documented By: Admin: 11/09/22 21:59 Dose: 5,000 units Documented By: Admin: 11/09/22 15:38 Dose: 5,000 units Documented By: Admin: 11/09/22 06:05 Dose: 5,000 units Documented By: Admin: 11/08/22 20:52 Dose: 5,000 units Documented By: Admin: 11/08/22 18:08 Dose: 5,000 units Documented By: [id number] Admin: 11/08/22 05:48 Dose: 5,000 units Documented By: Admin: 11/07/22 22:25 Dose: 5,000 units Documented By: Admin: 11/07/22 15:22 Dose: 5,000 units Documented By: [id number] Admin: 11/07/22 05:46 Dose: 5,000 units Documented By: EML(2) Admin: 11/06/22 21:10 Dose: 5,000 units Documented By: EML(2) Admin: 11/06/22 15:49 Dose: 5,000 units Documented By: Admin: 11/06/22 05:43 Dose: 5,000 units Documented By: Admin: 11/05/22 21:44 Dose: 5,000 units Documented By: Admin: 11/05/22 17:15 Dose: 5,000 units Documented By: Admin: 11/05/22 06:12 Dose: 5,000 units Documented By: Admin: 11/04/22 21:16 Dose: 5,000 units Documented By: Admin: 11/04/22 13:01 Dose: 5,000 units Documented By: Admin: 11/04/22 06:06 Dose: 5,000 units Documented By: Admin: 11/03/22 20:57 Dose: 5,000 units Documented By: Admin: 11/03/22 13:30 Dose: 5,000 units Documented By: JORGE LUIS Admin: 11/03/22 06:22 Dose: 5,000 units Documented By: Admin: 11/02/22 21:22 Dose: 5,000 units Documented By: Admin: 11/02/22 15:12 Dose: 5,000 units Documented By: Admin: 11/02/22 05:02 Dose: 5,000 units Documented By: Admin: 11/01/22 21:12 Dose: 5,000 units Documented By: Admin: 11/01/22 15:23 Dose: 5,000 units Documented By: JORGE LUIS Admin: 11/01/22 06:36 Dose: 5,000 units Documented By: Admin: 10/31/22 22:14 Dose: 5,000 units Documented By: Admin: 10/31/22 13:37 Dose: 5,000 units Documented By: Admin: 10/31/22 06:14 Dose: 5,000 units Documented By: Admin: 10/30/22 21:12 Dose: 5,000 units Documented By: Admin: 10/30/22 14:03 Dose: 5,000 units Documented By: Admin: 10/30/22 06:21 Dose: 5,000 units Documented By: Admin: 10/29/22 21:28 Dose: 5,000 units Documented By: Admin: 10/29/22 13:36 Dose: 5,000 units Documented By: Admin: 10/29/22 06:11 Dose: 5,000 units Documented By: Admin: 10/28/22 21:05 Dose: 5,000 units Documented By: Admin: 10/28/22 12:49 Dose: 5,000 units Documented By: Admin: 10/28/22 05:49 Dose: 5,000 units Documented By: Admin: 10/27/22 20:37 Dose: 5,000 units Documented By: Admin: 10/27/22 13:49 Dose: 5,000 units Documented By: Admin: 10/27/22 05:09 Dose: 5,000 units Documented By: Admin: 10/26/22 21:10 Dose: 5,000 units Documented By: Admin: 10/26/22 13:38 Dose: 5,000 units Documented By: [id number] Admin: 10/26/22 05:58 Dose: 5,000 units Documented By: Admin: 10/25/22 20:56 Dose: 5,000 units Documented By: Admin: 10/25/22 13:23 Dose: 5,000 units Documented By: [id number] Admin: 10/25/22 06:02 Dose: 5,000 units Documented By: Admin: 10/24/22 21:09 Dose: 5,000 units Documented By: Admin: 10/24/22 13:23 Dose: 5,000 units Documented By: Admin: 10/24/22 06:02 Dose: 5,000 units Documented By: Admin: 10/23/22 21:41 Dose: 5,000 units Documented By: Admin: 10/23/22 15:08 Dose: 5,000 units Documented By: Admin: 10/23/22 06:07 Dose: 5,000 units Documented By: Admin: 10/22/22 21:33 Dose: 5,000 units Documented By: Admin: 10/22/22 16:00 Dose: 5,000 units Documented By: [id number] Admin: 10/22/22 05:36 Dose: 5,000 units Documented By: Admin: 10/21/22 21:24 Dose: 5,000 units Documented By: Admin: 10/21/22 14:13 Dose: 5,000 units Documented By: Admin: 10/21/22 06:30 Dose: 5,000 units Documented By: Admin: 10/20/22 22:40 Dose: 5,000 units Documented By: Admin: 10/20/22 13:07 Dose: 5,000 units Documented By: RADHA(2) Admin: 10/20/22 06:27 Dose: 5,000 units Documented By: Admin: 10/19/22 21:57 Dose: 5,000 units Documented By: Admin: 10/19/22 15:11 Dose: 5,000 units Documented By: Admin: 10/19/22 05:56 Dose: 5,000 units Documented By: Admin: 10/18/22 22:24 Dose: 5,000 units Documented By: Admin: 10/18/22 12:59 Dose: 5,000 units Documented By: Admin: 10/18/22 06:06 Dose: 5,000 units Documented By: Admin: 10/17/22 21:50 Dose: 5,000 units Documented By: Admin: 10/17/22 13:13 Dose: 5,000 units Documented By: Admin: 10/17/22 06:01 Dose: 5,000 units Documented By: Admin: 10/16/22 21:17 Dose: 5,000 units Documented By: Admin: 10/16/22 12:40 Dose: 5,000 units Documented By: Admin: 10/16/22 06:03 Dose: 5,000 units Documented By: Admin: 10/15/22 20:45 Dose: 5,000 units Documented By: Admin: 10/15/22 12:39 Dose: 5,000 units Documented By: Admin: 10/15/22 06:19 Dose: 5,000 units Documented By: Admin: 10/14/22 20:28 Dose: 5,000 units Documented By: Admin: 10/14/22 13:04 Dose: 5,000 units Documented By: Admin: 10/14/22 05:20 Dose: 5,000 units Documented By: Admin: 10/13/22 21:11 Dose: 5,000 units Documented By: Admin: 10/13/22 14:35 Dose: 5,000 units Documented By: Admin: 10/13/22 06:04 Dose: 5,000 units Documented By: Admin: 10/12/22 21:12 Dose: 5,000 units Documented By: Admin: 10/12/22 13:06 Dose: 5,000 units Documented By: DELANEY(2) Admin: 10/12/22 06:08 Dose: 5,000 units Documented By: Admin: 10/11/22 20:26 Dose: 5,000 units Documented By: Admin: 10/11/22 14:18 Dose: 5,000 units Documented By: Admin: 10/11/22 05:50 Dose: 5,000 units Documented By: Admin: 10/10/22 20:20 Dose: 5,000 units Documented By: Admin: 10/10/22 13:06 Dose: 5,000 units Documented By: KDD(2) Admin: 10/10/22 06:03 Dose: 5,000 units Documented By: Admin: 10/09/22 20:49 Dose: 5,000 units Documented By: Admin: 10/09/22 13:01 Dose: 5,000 units Documented By: KDD(2) Admin: 10/09/22 06:13 Dose: 5,000 units Documented By: Admin: 10/08/22 21:05 Dose: 5,000 units Documented By: Admin: 10/08/22 12:58 Dose: 5,000 units Documented By: JLChristopher Admin: 10/08/22 06:10 Dose: Not Given Documented By: Admin: 10/07/22 21:32 Dose: 5,000 units Documented By: Admin: 10/07/22 14:21 Dose: 5,000 units Documented By: Admin: 10/07/22 06:15 Dose: 5,000 units Documented By: Admin: 10/06/22 21:56 Dose: 5,000 units Documented By: Admin: 10/06/22 14:23 Dose: 5,000 units Documented By: Admin: 10/06/22 05:43 Dose: 5,000 units Documented By: Admin: 10/05/22 21:46 Dose: 5,000 units Documented By: Admin: 10/05/22 15:57 Dose: 5,000 units Documented By: [id number] Admin: 10/05/22 05:54 Dose: 5,000 units Documented By: Admin: 10/04/22 21:10 Dose: 5,000 units Documented By: Admin: 10/04/22 15:59 Dose: 5,000 units Documented By: [id number] Admin: 10/04/22 05:52 Dose: 5,000 units Documented By: Admin: 10/03/22 22:00 Dose: 5,000 units Documented By: Admin: 10/03/22 16:17 Dose: 5,000 units Documented By: Admin: 10/03/22 06:13 Dose: 5,000 units Documented By: Admin: 10/02/22 21:46 Dose: 5,000 units Documented By: Admin: 10/02/22 14:24 Dose: 5,000 units Documented By: Admin: 10/02/22 06:03 Dose: 5,000 units Documented By: Admin: 10/01/22 23:09 Dose: 5,000 units Documented By: MG Insulin Aspart (Insulin, Rapid-Acting Pump) 1 each N/A ACHS [facility]; Protocol Stop: 12/01/22 14:59 Last Admin: 11/13/22 09:21 Dose: 1 each Documented By: WILLEM Co-signed By: STEFANIE Admin: 11/12/22 21:01 Dose: 1 each Documented By: JOSEPHINE(2) Co-signed By: ROCIO Admin: 11/12/22 18:04 Dose: 1 each Documented By: SMFabrizio Co-signed By: [facility] Admin: 11/12/22 12:56 Dose: 1 each Documented By: SMFabrizio Co-signed By: DM Admin: 11/12/22 08:53 Dose: 1 each Documented By: SMM Co-signed By: DMBeverly Admin: 11/11/22 20:46 Dose: 1 each Documented By: ASAD Co-signed By: ROCIO Admin: 11/11/22 19:17 Dose: 1 each Documented By: STEFANIE Co-signed By: RANDY Admin: 11/11/22 13:33 Dose: 1 each Documented By: STEFANIE Co-signed By: GERRY Admin: 11/11/22 10:17 Dose: 1 each Documented By: STEFANIE Co-signed By: RANJIT Admin: 11/10/22 20:33 Dose: 1 each Documented By: CHCF Co-signed By: KATHY Admin: 11/10/22 18:27 Dose: 1 each Documented By: RT Co-signed By: LARRY Admin: 11/10/22 13:04 Dose: 1 each Documented By: RT Co-signed By: LARRY Admin: 11/10/22 10:01 Dose: 1 each Documented By: RT Co-signed By: LARRY Admin: 11/09/22 22:01 Dose: 1 each Documented By: DARVIN Co-signed By: KATHY Admin: 11/09/22 18:19 Dose: Not Given Documented By: Admin: 11/09/22 13:26 Dose: Not Given Documented By: Admin: 11/09/22 10:29 Dose: 1 each Documented By: RT Co-signed By: VGH Admin: 11/08/22 20:58 Dose: 1 each Documented By: PLF Co-signed By: RADHA(2) Admin: 11/08/22 18:35 Dose: 1 each Documented By: [id number] Co-signed By: KDD Admin: 11/08/22 13:16 Dose: 1 each Documented By: [id number] Co-signed By: LARRY Admin: 11/08/22 09:29 Dose: 1 each Documented By: [id number] Co-signed By: GW Admin: 11/07/22 22:24 Dose: 1 each Documented By: PLF Co-signed By: OTTONIEL Admin: 11/07/22 18:48 Dose: 1 each Documented By: [id number] Co-signed By: JLP Admin: 11/07/22 13:23 Dose: 1 each Documented By: [id number] Co-signed By: JLP Admin: 11/07/22 10:32 Dose: 1 each Documented By: [id number] Co-signed By: JLP Admin: 11/06/22 22:09 Dose: 1 each Documented By: EML(2) Co-signed By: KW Admin: 11/06/22 18:04 Dose: 1 each Documented By: RLB Co-signed By: LISA Admin: 11/06/22 13:13 Dose: 1 each Documented By: RLB Co-signed By: KS Admin: 11/06/22 10:17 Dose: 1 each Documented By: DAPHNES Co-signed By: RLB Admin: 11/05/22 21:45 Dose: 1 each Documented By: BLM Co-signed By: FRANK Admin: 11/05/22 18:22 Dose: 1 each Documented By: ISABELL Co-signed By: RICARDO Admin: 11/05/22 13:11 Dose: 1 each Documented By: ISABELL Co-signed By: BILLP Admin: 11/05/22 11:40 Dose: 1 each Documented By: ISABELL Co-signed By: JLP Admin: 11/04/22 21:00 Dose: 1 each Documented By: EVANS Co-signed By: STEPHANI Admin: 11/04/22 19:00 Dose: 1 each Documented By: SANJEEV Co-signed By: EVANS Admin: 11/04/22 13:01 Dose: 1 each Documented By: SANJEEV Co-signed By: OSMAR Admin: 11/04/22 10:09 Dose: 1 each Documented By: [email or web address] Co-signed By: OSMAR Admin: 11/03/22 21:00 Dose: 1 each Documented By: EVANS Co-signed By: HARIKA Admin: 11/03/22 17:54 Dose: 1 each Documented By: JORGE LUIS Co-signed By: DELANEY(2) Admin: 11/03/22 13:30 Dose: 1 each Documented By: JORGE LUIS Co-signed By: JOSEPHINE Admin: 11/03/22 09:25 Dose: 1 each Documented By: JORGE LUIS Co-signed By: DELANEY(2) Admin: 11/02/22 21:30 Dose: 1 each Documented By: NATALI Co-signed By: KYLER Admin: 11/02/22 18:46 Dose: 1 each Documented By: JORGE LUIS Co-signed By: DELANEY(2) Admin: 11/02/22 13:25 Dose: 1 each Documented By: JORGE LUIS Co-signed By: SANDER Admin: 11/02/22 09:09 Dose: 1 each Documented By: JORGE LUIS Co-signed By: DELANEY(2) Admin: 11/01/22 21:11 Dose: 1 each Documented By: JAIMEE Co-signed By: MARICRUZ Admin: 11/01/22 17:39 Dose: 1 each Documented By: JORGE LUIS Co-signed By: MERVIN Admin: 11/01/22 14:55 Dose: 1 each Documented By: JORGE LUIS Co-signed By: KTS Isosorbide Mononitrate (Isosorbide [place] Extended Rel 30 Mg Tabcr) 30 mg PO QAM ASIYA Stop: 12/02/22 08:59 Last Admin: 11/13/22 08:24 Dose: 30 mg Documented By: Admin: 11/12/22 08:56 Dose: 30 mg Documented By: Admin: 11/11/22 07:51 Dose: 30 mg Documented By: Admin: 11/10/22 08:53 Dose: 30 mg Documented By: Admin: 11/09/22 08:06 Dose: 30 mg Documented By: Admin: 11/08/22 07:51 Dose: 30 mg Documented By: [id number] Admin: 11/07/22 07:42 Dose: 30 mg Documented By: [id number] Admin: 11/06/22 08:15 Dose: 30 mg Documented By: Admin: 11/05/22 08:44 Dose: 30 mg Documented By: Admin: 11/04/22 10:13 Dose: 30 mg Documented By: Admin: 11/03/22 08:29 Dose: 30 mg Documented By: Admin: 11/02/22 08:59 Dose: 30 mg Documented By: JORGE LUIS Admin: 11/01/22 09:23 Dose: 30 mg Documented By: Admin: 10/31/22 09:39 Dose: 30 mg Documented By: Admin: 10/30/22 08:15 Dose: 30 mg Documented By: Admin: 10/29/22 08:21 Dose: 30 mg Documented By: Admin: 10/28/22 07:46 Dose: 30 mg Documented By: Admin: 10/27/22 08:08 Dose: 30 mg Documented By: Admin: 10/26/22 07:48 Dose: 30 mg Documented By: [id number] Admin: 10/25/22 09:14 Dose: 30 mg Documented By: [id number] Admin: 10/24/22 09:46 Dose: 30 mg Documented By: Admin: 10/23/22 08:29 Dose: 30 mg Documented By: Admin: 10/22/22 09:41 Dose: 30 mg Documented By: [id number] Admin: 10/21/22 08:44 Dose: 30 mg Documented By: Admin: 10/20/22 09:16 Dose: 30 mg Documented By: EAM(2) Admin: 10/19/22 09:16 Dose: 30 mg Documented By: EAM(2) Admin: 10/18/22 09:26 Dose: 30 mg Documented By: Admin: 10/17/22 08:58 Dose: 30 mg Documented By: Admin: 10/16/22 08:47 Dose: 30 mg Documented By: Admin: 10/15/22 08:35 Dose: 30 mg Documented By: Admin: 10/14/22 08:22 Dose: 30 mg Documented By: Admin: 10/13/22 08:34 Dose: 30 mg Documented By: Admin: 10/12/22 08:24 Dose: 30 mg Documented By: KDD(2) Admin: 10/11/22 09:23 Dose: 30 mg Documented By: Admin: 10/10/22 08:51 Dose: 30 mg Documented By: KDD(2) Admin: 10/09/22 08:19 Dose: 30 mg Documented By: KDD(2) Admin: 10/08/22 08:48 Dose: 30 mg Documented By: Admin: 10/07/22 09:20 Dose: 30 mg Documented By: Admin: 10/06/22 09:09 Dose: 30 mg Documented By: Admin: 10/05/22 08:23 Dose: 30 mg Documented By: [id number] Admin: 10/04/22 08:42 Dose: 30 mg Documented By: [id number] Admin: 10/03/22 09:51 Dose: 30 mg Documented By: Admin: 10/02/22 08:24 Dose: 30 mg Documented By: RRRainer Levothyroxine Sodium (Levothyroxine Sodium 25 Mcg Tablet) 25 mcg PO DAILYBB [facility] Stop: 12/02/22 06:29 Last Admin: 11/13/22 05:23 Dose: 25 mcg Documented By: JOSEPHINE(2) Admin: 11/12/22 05:31 Dose: 25 mcg Documented By: Admin: 11/11/22 05:43 Dose: 25 mcg Documented By: Admin: 11/10/22 05:59 Dose: 25 mcg Documented By: Admin: 11/09/22 06:05 Dose: 25 mcg Documented By: Admin: 11/08/22 05:47 Dose: 25 mcg Documented By: Admin: 11/07/22 05:47 Dose: 25 mcg Documented By: EML(2) Admin: 11/06/22 05:41 Dose: 25 mcg Documented By: Admin: 11/05/22 06:11 Dose: 25 mcg Documented By: Admin: 11/04/22 06:08 Dose: 25 mcg Documented By: Admin: 11/03/22 06:22 Dose: 25 mcg Documented By: Admin: 11/02/22 05:02 Dose: 25 mcg Documented By: Admin: 11/01/22 06:58 Dose: 25 mcg Documented By: Admin: 10/31/22 06:14 Dose: 25 mcg Documented By: Admin: 10/30/22 06:20 Dose: 25 mcg Documented By: Admin: 10/29/22 06:11 Dose: 25 mcg Documented By: Admin: 10/28/22 05:49 Dose: 25 mcg Documented By: Admin: 10/27/22 05:09 Dose: 25 mcg Documented By: Admin: 10/26/22 05:58 Dose: 25 mcg Documented By: Admin: 10/25/22 06:00 Dose: 25 mcg Documented By: Admin: 10/24/22 06:02 Dose: 25 mcg Documented By: Admin: 10/23/22 06:06 Dose: 25 mcg Documented By: Admin: 10/22/22 05:36 Dose: 25 mcg Documented By: Admin: 10/21/22 06:31 Dose: 25 mcg Documented By: Admin: 10/20/22 06:31 Dose: 25 mcg Documented By: Admin: 10/19/22 05:54 Dose: 25 mcg Documented By: Admin: 10/18/22 06:08 Dose: 25 mcg Documented By: Admin: 10/17/22 06:01 Dose: 25 mcg Documented By: Admin: 10/16/22 06:02 Dose: 25 mcg Documented By: Admin: 10/15/22 06:20 Dose: 25 mcg Documented By: Admin: 10/14/22 05:19 Dose: 25 mcg Documented By: Admin: 10/13/22 06:04 Dose: 25 mcg Documented By: Admin: 10/12/22 06:08 Dose: 25 mcg Documented By: Admin: 10/11/22 05:50 Dose: 25 mcg Documented By: Admin: 10/10/22 06:02 Dose: 25 mcg Documented By: Admin: 10/09/22 06:13 Dose: 25 mcg Documented By: Admin: 10/08/22 06:01 Dose: 25 mcg Documented By: EKNellie Admin: 10/07/22 06:14 Dose: 25 mcg Documented By: Admin: 10/06/22 05:43 Dose: 25 mcg Documented By: Admin: 10/05/22 05:55 Dose: 25 mcg Documented By: Admin: 10/04/22 05:52 Dose: 25 mcg Documented By: Admin: 10/03/22 06:13 Dose: 25 mcg Documented By: Admin: 10/02/22 06:03 Dose: 25 mcg Documented By: MG Levothyroxine Sodium (Levothyroxine Sodium 200 Mcg Tablet) 200 mcg PO DAILYBB [facility] Stop: 12/02/22 06:29 Last Admin: 11/13/22 05:23 Dose: 200 mcg Documented By: JLP(2) Admin: 11/12/22 05:31 Dose: 200 mcg Documented By: Admin: 11/11/22 05:43 Dose: 200 mcg Documented By: Admin: 11/10/22 05:59 Dose: 200 mcg Documented By: Admin: 11/09/22 06:05 Dose: 200 mcg Documented By: Admin: 11/08/22 05:48 Dose: 200 mcg Documented By: Admin: 11/07/22 05:47 Dose: 200 mcg Documented By: EML(2) Admin: 11/06/22 05:41 Dose: 200 mcg Documented By: Admin: 11/05/22 06:11 Dose: 200 mcg Documented By: Admin: 11/04/22 06:08 Dose: 200 mcg Documented By: Admin: 11/03/22 06:22 Dose: 200 mcg Documented By: Admin: 11/02/22 05:02 Dose: 200 mcg Documented By: Admin: 11/01/22 06:58 Dose: 200 mcg Documented By: Admin: 10/31/22 06:14 Dose: 200 mcg Documented By: JLBrandi Admin: 10/30/22 06:20 Dose: 200 mcg Documented By: Admin: 10/29/22 06:11 Dose: 200 mcg Documented By: Admin: 10/28/22 05:49 Dose: 200 mcg Documented By: Admin: 10/27/22 05:09 Dose: 200 mcg Documented By: Admin: 10/26/22 05:58 Dose: 200 mcg Documented By: Admin: 10/25/22 06:00 Dose: 200 mcg Documented By: Admin: 10/24/22 06:01 Dose: 200 mcg Documented By: Admin: 10/23/22 06:06 Dose: 200 mcg Documented By: Admin: 10/22/22 05:36 Dose: 200 mcg Documented By: Admin: 10/21/22 06:31 Dose: 200 mcg Documented By: Admin: 10/20/22 06:31 Dose: 200 mcg Documented By: Admin: 10/19/22 05:55 Dose: 200 mcg Documented By: Admin: 10/18/22 06:08 Dose: 200 mcg Documented By: Admin: 10/17/22 06:01 Dose: 200 mcg Documented By: Admin: 10/16/22 06:01 Dose: 200 mcg Documented By: Admin: 10/15/22 06:21 Dose: 200 mcg Documented By: Admin: 10/14/22 05:20 Dose: 200 mcg Documented By: Admin: 10/13/22 06:04 Dose: 200 mcg Documented By: Admin: 10/12/22 06:09 Dose: 200 mcg Documented By: Admin: 10/11/22 05:50 Dose: 200 mcg Documented By: Admin: 10/10/22 06:02 Dose: 200 mcg Documented By: Admin: 10/09/22 06:13 Dose: 200 mcg Documented By: Admin: 10/08/22 06:02 Dose: 200 mcg Documented By: EKNellie Admin: 10/07/22 06:14 Dose: 200 mcg Documented By: Admin: 10/06/22 05:43 Dose: 200 mcg Documented By: Admin: 10/05/22 05:55 Dose: 200 mcg Documented By: Admin: 10/04/22 05:52 Dose: 200 mcg Documented By: Admin: 10/03/22 06:13 Dose: 200 mcg Documented By: Admin: 10/02/22 06:03 Dose: 200 mcg Documented By: MG Magnesium Oxide (Magnesium Oxide 400 Mg Tab) 400 mg PO QAM ASIYA Stop: 12/02/22 08:59 Last Admin: 11/13/22 08:20 Dose: 400 mg Documented By: Admin: 11/12/22 08:57 Dose: 400 mg Documented By: Admin: 11/11/22 07:48 Dose: 400 mg Documented By: Admin: 11/10/22 08:53 Dose: 400 mg Documented By: Admin: 11/09/22 08:07 Dose: 400 mg Documented By: Admin: 11/08/22 07:51 Dose: 400 mg Documented By: [id number] Admin: 11/07/22 07:43 Dose: 400 mg Documented By: [id number] Admin: 11/06/22 08:16 Dose: 400 mg Documented By: Admin: 11/05/22 08:44 Dose: 400 mg Documented By: Admin: 11/04/22 10:14 Dose: 400 mg Documented By: Admin: 11/03/22 08:30 Dose: 400 mg Documented By: JORGE LUIS Admin: 11/02/22 08:57 Dose: 400 mg Documented By: JORGE LUIS Admin: 11/01/22 08:28 Dose: 400 mg Documented By: JORGE LUIS Admin: 10/31/22 10:29 Dose: 400 mg Documented By: Admin: 10/30/22 08:15 Dose: 400 mg Documented By: Admin: 10/29/22 08:21 Dose: 400 mg Documented By: Admin: 10/28/22 07:46 Dose: 400 mg Documented By: Admin: 10/27/22 08:09 Dose: 400 mg Documented By: Admin: 10/26/22 07:49 Dose: 400 mg Documented By: [id number] Admin: 10/25/22 09:15 Dose: 400 mg Documented By: [id number] Admin: 10/24/22 09:47 Dose: 400 mg Documented By: Admin: 10/23/22 08:27 Dose: 400 mg Documented By: Admin: 10/22/22 09:39 Dose: 400 mg Documented By: [id number] Admin: 10/21/22 08:44 Dose: 400 mg Documented By: Admin: 10/20/22 09:17 Dose: 400 mg Documented By: RADHA(2) Admin: 10/19/22 09:16 Dose: 400 mg Documented By: EAM(2) Admin: 10/18/22 09:27 Dose: 400 mg Documented By: Admin: 10/17/22 08:58 Dose: 400 mg Documented By: Admin: 10/16/22 08:46 Dose: 400 mg Documented By: Admin: 10/15/22 08:35 Dose: 400 mg Documented By: Admin: 10/14/22 08:22 Dose: 400 mg Documented By: Admin: 10/13/22 08:35 Dose: 400 mg Documented By: Admin: 10/12/22 08:25 Dose: 400 mg Documented By: KDD(2) Admin: 10/11/22 09:23 Dose: 400 mg Documented By: Admin: 10/10/22 08:52 Dose: 400 mg Documented By: KDD(2) Admin: 10/09/22 08:18 Dose: 400 mg Documented By: KDD(2) Admin: 10/08/22 08:48 Dose: 400 mg Documented By: Admin: 10/07/22 09:21 Dose: 400 mg Documented By: Admin: 10/06/22 09:10 Dose: 400 mg Documented By: Admin: 10/05/22 08:23 Dose: 400 mg Documented By: [id number] Admin: 10/04/22 08:44 Dose: 400 mg Documented By: [id number] Admin: 10/03/22 09:51 Dose: 400 mg Documented By: Admin: 10/02/22 08:24 Dose: 400 mg Documented By: RRR Metoprolol Tartrate (Metoprolol Tartrate 25 Mg Tab) 12.5 mg PO BID ASIYA Stop: 11/30/22 21:59 Last Admin: 11/13/22 08:23 Dose: 12.5 mg Documented By: CAMary Admin: 11/12/22 20:59 Dose: 12.5 mg Documented By: JOSEPHINE(2) Admin: 11/12/22 08:55 Dose: 12.5 mg Documented By: Admin: 11/11/22 20:41 Dose: 12.5 mg Documented By: Admin: 11/11/22 07:52 Dose: 12.5 mg Documented By: Admin: 11/10/22 21:29 Dose: 12.5 mg Documented By: Admin: 11/10/22 08:53 Dose: 12.5 mg Documented By: Admin: 11/09/22 21:59 Dose: 12.5 mg Documented By: Admin: 11/09/22 08:07 Dose: 12.5 mg Documented By: Admin: 11/08/22 20:53 Dose: 12.5 mg Documented By: Admin: 11/08/22 09:38 Dose: 12.5 mg Documented By: [id number] Admin: 11/07/22 22:27 Dose: 12.5 mg Documented By: Admin: 11/07/22 07:42 Dose: 12.5 mg Documented By: [id number] Admin: 11/06/22 21:05 Dose: 12.5 mg Documented By: EML(2) Admin: 11/06/22 08:15 Dose: 12.5 mg Documented By: Admin: 11/05/22 20:01 Dose: 12.5 mg Documented By: Admin: 11/05/22 08:45 Dose: 12.5 mg Documented By: Admin: 11/04/22 21:14 Dose: 12.5 mg Documented By: Admin: 11/04/22 10:11 Dose: 12.5 mg Documented By: Admin: 11/03/22 20:54 Dose: 12.5 mg Documented By: Admin: 11/03/22 10:14 Dose: 12.5 mg Documented By: [email or web address] Admin: 11/02/22 21:26 Dose: 12.5 mg Documented By: Admin: 11/02/22 08:59 Dose: 12.5 mg Documented By: Admin: 11/01/22 21:10 Dose: 12.5 mg Documented By: Admin: 11/01/22 08:21 Dose: 12.5 mg Documented By: Admin: 10/31/22 22:14 Dose: 12.5 mg Documented By: [email or web address] Multivitamins (Multivitamin Tab) 1 tab PO QAM ASIYA Stop: 12/02/22 08:59 Last Admin: 11/13/22 08:22 Dose: 1 tab Documented By: Admin: 11/12/22 08:54 Dose: 1 tab Documented By: Admin: 11/11/22 07:53 Dose: 1 tab Documented By: Admin: 11/10/22 08:52 Dose: 1 tab Documented By: Admin: 11/09/22 08:06 Dose: 1 tab Documented By: Admin: 11/08/22 07:51 Dose: 1 tab Documented By: [id number] Admin: 11/07/22 07:42 Dose: 1 tab Documented By: [id number] Admin: 11/06/22 08:16 Dose: 1 tab Documented By: Admin: 11/05/22 08:46 Dose: 1 tab Documented By: Admin: 11/04/22 10:10 Dose: 1 tab Documented By: Admin: 11/03/22 08:31 Dose: 1 tab Documented By: JORGE LUIS Admin: 11/02/22 08:58 Dose: 1 tab Documented By: JORGE LUIS Admin: 11/01/22 09:24 Dose: 1 tab Documented By: JORGE LUIS Admin: 10/31/22 09:40 Dose: 1 tab Documented By: Admin: 10/30/22 08:16 Dose: 1 tab Documented By: Admin: 10/29/22 08:21 Dose: 1 tab Documented By: Admin: 10/28/22 07:50 Dose: 1 tab Documented By: Admin: 10/27/22 08:09 Dose: 1 tab Documented By: Admin: 10/26/22 07:50 Dose: 1 tab Documented By: [id number] Admin: 10/25/22 09:15 Dose: 1 tab Documented By: [id number] Admin: 10/24/22 09:45 Dose: 1 tab Documented By: Admin: 10/23/22 08:27 Dose: 1 tab Documented By: Admin: 10/22/22 09:42 Dose: 1 tab Documented By: [id number] Admin: 10/21/22 08:44 Dose: 1 tab Documented By: Admin: 10/20/22 09:17 Dose: 1 tab Documented By: RADHA(2) Admin: 10/19/22 09:16 Dose: 1 tab Documented By: RADHA(2) Admin: 10/18/22 09:27 Dose: 1 tab Documented By: Admin: 10/17/22 08:58 Dose: 1 tab Documented By: Admin: 10/16/22 08:47 Dose: 1 tab Documented By: Admin: 10/15/22 08:34 Dose: 1 tab Documented By: Admin: 10/14/22 08:22 Dose: 1 tab Documented By: Admin: 10/13/22 08:35 Dose: 1 tab Documented By: Admin: 10/12/22 08:25 Dose: 1 tab Documented By: [email or web address](2) Admin: 10/11/22 09:22 Dose: 1 tab Documented By: Admin: 10/10/22 08:52 Dose: 1 tab Documented By: DELANEY(2) Admin: 10/09/22 08:19 Dose: 1 tab Documented By: DELANEY(2) Admin: 10/08/22 08:48 Dose: 1 tab Documented By: Admin: 10/07/22 09:18 Dose: 1 tab Documented By: Admin: 10/06/22 09:10 Dose: 1 tab Documented By: [email or web address] Admin: 10/05/22 08:23 Dose: 1 tab Documented By: [id number] Admin: 10/04/22 08:43 Dose: 1 tab Documented By: [id number] Admin: 10/03/22 09:51 Dose: 1 tab Documented By: Admin: 10/02/22 08:25 Dose: 1 tab Documented By: RRR Oxycodone HCl (Oxycodone Hcl Ir 5 Mg Tab (Immediate Release)) 5 mg PO Q6H PRN PRN Reason: Pain scale >7 or pre-PT Stop: 12/02/22 13:31 Last Admin: 11/11/22 23:50 Dose: 5 mg Documented By: Admin: 11/09/22 23:42 Dose: 5 mg Documented By: Admin: 11/08/22 16:26 Dose: 5 mg Documented By: [email or web address] Admin: 11/07/22 10:58 Dose: 5 mg Documented By: [id number] Admin: 11/06/22 00:27 Dose: 5 mg Documented By: Admin: 11/05/22 15:26 Dose: 5 mg Documented By: Admin: 11/04/22 14:54 Dose: 5 mg Documented By: Admin: 11/03/22 13:23 Dose: 5 mg Documented By: JJFabrizio Admin: 11/02/22 14:42 Dose: 5 mg Documented By: JORGE LUIS Admin: 11/01/22 23:45 Dose: 5 mg Documented By: Admin: 11/01/22 10:02 Dose: 5 mg Documented By: Admin: 10/31/22 11:45 Dose: 5 mg Documented By: Admin: 10/30/22 23:51 Dose: 5 mg Documented By: Admin: 10/30/22 10:05 Dose: 5 mg Documented By: Admin: 10/29/22 22:54 Dose: 5 mg Documented By: Admin: 10/28/22 02:59 Dose: 5 mg Documented By: Admin: 10/27/22 11:14 Dose: 5 mg Documented By: Admin: 10/26/22 10:28 Dose: 5 mg Documented By: [id number] Admin: 10/25/22 23:03 Dose: 5 mg Documented By: Admin: 10/25/22 10:54 Dose: 5 mg Documented By: Admin: 10/24/22 15:53 Dose: 5 mg Documented By: Admin: 10/24/22 06:07 Dose: 5 mg Documented By: Admin: 10/23/22 21:38 Dose: 5 mg Documented By: Admin: 10/23/22 15:13 Dose: 5 mg Documented By: Admin: 10/22/22 21:33 Dose: 5 mg Documented By: [email or web address] Admin: 10/22/22 14:44 Dose: 5 mg Documented By: [id number] Admin: 10/22/22 06:18 Dose: 5 mg Documented By: Admin: 10/21/22 21:36 Dose: 5 mg Documented By: Admin: 10/21/22 10:38 Dose: 5 mg Documented By: Admin: 10/20/22 22:34 Dose: 5 mg Documented By: Admin: 10/20/22 10:18 Dose: 5 mg Documented By: RADHA(2) Admin: 10/19/22 21:53 Dose: 5 mg Documented By: Admin: 10/19/22 15:11 Dose: 5 mg Documented By: Admin: 10/19/22 09:25 Dose: 5 mg Documented By: RADHA(2) Admin: 10/18/22 22:23 Dose: 5 mg Documented By: Admin: 10/18/22 14:31 Dose: 5 mg Documented By: JOSEPHINE Pantoprazole Sodium (Pantoprazole 40 Mg Tab) 40 mg PO DAILYBB [facility] Stop: 12/02/22 06:29 Last Admin: 11/13/22 05:23 Dose: 40 mg Documented By: JOSEPHINE(2) Admin: 11/12/22 05:31 Dose: 40 mg Documented By: Admin: 11/11/22 05:45 Dose: 40 mg Documented By: Admin: 11/10/22 05:59 Dose: 40 mg Documented By: Admin: 11/09/22 06:05 Dose: 40 mg Documented By: Admin: 11/08/22 05:47 Dose: 40 mg Documented By: Admin: 11/07/22 05:47 Dose: 40 mg Documented By: EML(2) Admin: 11/06/22 05:41 Dose: 40 mg Documented By: Admin: 11/05/22 06:10 Dose: 40 mg Documented By: Admin: 11/04/22 06:06 Dose: 40 mg Documented By: Admin: 11/03/22 06:22 Dose: 40 mg Documented By: Admin: 11/02/22 05:07 Dose: 40 mg Documented By: Admin: 11/01/22 06:58 Dose: 40 mg Documented By: Admin: 10/31/22 06:14 Dose: 40 mg Documented By: Admin: 10/30/22 06:20 Dose: 40 mg Documented By: Admin: 10/29/22 06:11 Dose: 40 mg Documented By: Admin: 10/28/22 05:49 Dose: 40 mg Documented By: Admin: 10/27/22 05:09 Dose: 40 mg Documented By: Admin: 10/26/22 05:58 Dose: 40 mg Documented By: Admin: 10/25/22 06:00 Dose: 40 mg Documented By: Admin: 10/24/22 06:02 Dose: 40 mg Documented By: Admin: 10/23/22 06:58 Dose: 40 mg Documented By: Admin: 10/22/22 05:36 Dose: 40 mg Documented By: Admin: 10/21/22 06:31 Dose: 40 mg Documented By: Admin: 10/20/22 06:30 Dose: 40 mg Documented By: Admin: 10/19/22 05:55 Dose: 40 mg Documented By: Admin: 10/18/22 06:08 Dose: 40 mg Documented By: Admin: 10/17/22 06:01 Dose: 40 mg Documented By: Admin: 10/16/22 06:02 Dose: 40 mg Documented By: Admin: 10/15/22 06:21 Dose: 40 mg Documented By: Admin: 10/14/22 05:19 Dose: 40 mg Documented By: Admin: 10/13/22 06:04 Dose: 40 mg Documented By: Admin: 10/12/22 06:09 Dose: 40 mg Documented By: Admin: 10/11/22 05:50 Dose: 40 mg Documented By: Admin: 10/10/22 06:02 Dose: 40 mg Documented By: Admin: 10/09/22 06:13 Dose: 40 mg Documented By: Admin: 10/08/22 06:01 Dose: 40 mg Documented By: Admin: 10/07/22 06:14 Dose: 40 mg Documented By: Admin: 10/06/22 05:43 Dose: 40 mg Documented By: Admin: 10/05/22 05:55 Dose: 40 mg Documented By: Admin: 10/04/22 05:55 Dose: 40 mg Documented By: Admin: 10/03/22 06:12 Dose: 40 mg Documented By: Admin: 10/02/22 06:03 Dose: 40 mg Documented By: MG Potassium Chloride (Potassium Chloride Crtab 20 Meq Tabcr) 20 meq PO QAM ASIYA Stop: 11/14/22 09:59 Last Admin: 11/13/22 08:24 Dose: 20 meq Documented By: Admin: 11/12/22 08:57 Dose: 20 meq Documented By: Admin: 11/11/22 07:50 Dose: 20 meq Documented By: Admin: 11/10/22 08:53 Dose: 20 meq Documented By: Admin: 11/09/22 08:06 Dose: 20 meq Documented By: Admin: 11/08/22 07:51 Dose: 20 meq Documented By: [id number] Admin: 11/07/22 07:43 Dose: 20 meq Documented By: [id number] Admin: 11/06/22 08:15 Dose: 20 meq Documented By: Admin: 11/05/22 08:46 Dose: 20 meq Documented By: Admin: 11/04/22 10:13 Dose: 20 meq Documented By: Admin: 11/03/22 08:30 Dose: 20 meq Documented By: Admin: 11/02/22 09:00 Dose: 20 meq Documented By: Admin: 11/01/22 08:20 Dose: 20 meq Documented By: JORGE LUIS Admin: 10/31/22 10:29 Dose: 20 meq Documented By: Admin: 10/30/22 08:16 Dose: 20 meq Documented By: Admin: 10/29/22 08:21 Dose: 20 meq Documented By: Admin: 10/28/22 07:47 Dose: 20 meq Documented By: Admin: 10/27/22 08:09 Dose: 20 meq Documented By: Admin: 10/26/22 07:47 Dose: 20 meq Documented By: [id number] Admin: 10/25/22 09:14 Dose: 20 meq Documented By: [id number] Admin: 10/24/22 09:45 Dose: 20 meq Documented By: Admin: 10/23/22 08:27 Dose: 20 meq Documented By: Admin: 10/22/22 09:40 Dose: 20 meq Documented By: [id number] Admin: 10/21/22 08:46 Dose: 20 meq Documented By: Admin: 10/20/22 09:16 Dose: 20 meq Documented By: RADHA(2) Admin: 10/19/22 09:21 Dose: 20 meq Documented By: RADHA(2) Admin: 10/18/22 09:26 Dose: 20 meq Documented By: Admin: 10/17/22 08:58 Dose: 20 meq Documented By: Admin: 10/16/22 08:47 Dose: 20 meq Documented By: Admin: 10/15/22 11:29 Dose: 20 meq Documented By: HADLEY Spironolactone (Spironolactone 25 Mg Tab) 25 mg PO QAM ASIYA Stop: 12/02/22 08:59 Last Admin: 11/13/22 08:22 Dose: 25 mg Documented By: Admin: 11/12/22 08:54 Dose: 25 mg Documented By: Admin: 11/11/22 07:49 Dose: 25 mg Documented By: Admin: 11/10/22 08:53 Dose: 25 mg Documented By: Admin: 11/09/22 08:06 Dose: 25 mg Documented By: Admin: 11/08/22 07:51 Dose: 25 mg Documented By: [id number] Admin: 11/07/22 07:43 Dose: 25 mg Documented By: [id number] Admin: 11/06/22 08:16 Dose: 25 mg Documented By: Admin: 11/05/22 08:46 Dose: 25 mg Documented By: Admin: 11/04/22 10:10 Dose: 25 mg Documented By: Admin: 11/03/22 08:30 Dose: 25 mg Documented By: Admin: 11/02/22 14:40 Dose: 25 mg Documented By: JORGE LUIS Admin: 11/01/22 09:24 Dose: 25 mg Documented By: JORGE LUIS Admin: 10/31/22 09:39 Dose: 25 mg Documented By: Admin: 10/30/22 08:16 Dose: 25 mg Documented By: Admin: 10/29/22 08:21 Dose: 25 mg Documented By: Admin: 10/28/22 07:47 Dose: 25 mg Documented By: Admin: 10/27/22 08:09 Dose: 25 mg Documented By: Admin: 10/26/22 07:49 Dose: 25 mg Documented By: [id number] Admin: 10/25/22 09:14 Dose: 25 mg Documented By: [id number] Admin: 10/24/22 09:45 Dose: 25 mg Documented By: Admin: 10/23/22 08:27 Dose: 25 mg Documented By: Admin: 10/22/22 09:41 Dose: 25 mg Documented By: [id number] Admin: 10/21/22 08:46 Dose: 25 mg Documented By: Admin: 10/20/22 09:16 Dose: 25 mg Documented By: RADHA(2) Admin: 10/19/22 09:16 Dose: 25 mg Documented By: EAM(2) Admin: 10/18/22 09:26 Dose: 25 mg Documented By: Admin: 10/17/22 08:58 Dose: 25 mg Documented By: Admin: 10/16/22 08:48 Dose: 25 mg Documented By: Admin: 10/15/22 08:34 Dose: 25 mg Documented By: Admin: 10/14/22 08:23 Dose: 25 mg Documented By: Admin: 10/12/22 08:25 Dose: 25 mg Documented By: KDD(2) Admin: 10/11/22 09:22 Dose: 25 mg Documented By: Admin: 10/10/22 08:52 Dose: 25 mg Documented By: KDD(2) Admin: 10/09/22 08:20 Dose: 25 mg Documented By: KDD(2) Admin: 10/08/22 08:48 Dose: 25 mg Documented By: Admin: 10/07/22 09:18 Dose: 25 mg Documented By: Admin: 10/06/22 09:10 Dose: 25 mg Documented By: Admin: 10/05/22 08:23 Dose: 25 mg Documented By: [id number] Admin: 10/04/22 08:42 Dose: 25 mg Documented By: [id number] Admin: 10/03/22 09:51 Dose: 25 mg Documented By: Admin: 10/02/22 08:25 Dose: 25 mg Documented By: DANIELLE Topiramate (Topiramate 100 Mg Tab) 100 mg PO QAM [facility] Stop: 11/26/22 08:59 Last Admin: 11/13/22 08:23 Dose: 100 mg Documented By: Admin: 11/12/22 08:56 Dose: 100 mg Documented By: SMFabrizio Admin: 11/11/22 07:53 Dose: 100 mg Documented By: Admin: 11/10/22 08:53 Dose: 100 mg Documented By: Admin: 11/09/22 08:06 Dose: 100 mg Documented By: Admin: 11/08/22 07:51 Dose: 100 mg Documented By: [id number] Admin: 11/07/22 15:20 Dose: 100 mg Documented By: [id number] Admin: 11/06/22 08:15 Dose: 100 mg Documented By: Admin: 11/05/22 08:47 Dose: 100 mg Documented By: Admin: 11/04/22 10:12 Dose: 100 mg Documented By: Admin: 11/03/22 10:14 Dose: 100 mg Documented By: Admin: 11/02/22 09:01 Dose: 100 mg Documented By: JORGE LUIS Admin: 11/01/22 08:23 Dose: 100 mg Documented By: JORGE LUIS Admin: 10/31/22 09:38 Dose: 100 mg Documented By: Admin: 10/30/22 08:16 Dose: 100 mg Documented By: Admin: 10/29/22 08:21 Dose: 100 mg Documented By: Admin: 10/28/22 07:47 Dose: 100 mg Documented By: Admin: 10/27/22 08:10 Dose: 100 mg Documented By: LARRY Topiramate (Topiramate 100 Mg Tab) 200 mg PO HS ASIYA Stop: 11/25/22 20:59 Last Admin: 11/12/22 21:00 Dose: 200 mg Documented By: JLP(2) Admin: 11/11/22 20:43 Dose: 200 mg Documented By: Admin: 11/10/22 21:27 Dose: 200 mg Documented By: Admin: 11/09/22 22:00 Dose: 200 mg Documented By: Admin: 11/08/22 20:53 Dose: 200 mg Documented By: Admin: 11/07/22 22:26 Dose: 200 mg Documented By: Admin: 11/06/22 21:11 Dose: 200 mg Documented By: EML(2) Admin: 11/05/22 20:01 Dose: 200 mg Documented By: Admin: 11/04/22 21:15 Dose: 200 mg Documented By: Admin: 11/03/22 20:55 Dose: 200 mg Documented By: Admin: 11/02/22 21:25 Dose: 200 mg Documented By: Admin: 11/01/22 21:13 Dose: 200 mg Documented By: Admin: 10/31/22 20:38 Dose: 200 mg Documented By: Admin: 10/30/22 21:09 Dose: 200 mg Documented By: Admin: 10/29/22 19:51 Dose: 200 mg Documented By: Admin: 10/28/22 21:05 Dose: 200 mg Documented By: Admin: 10/27/22 20:34 Dose: 200 mg Documented By: Admin: 10/26/22 21:09 Dose: 200 mg Documented By: CARMELA Torsemide (Torsemide 20 Mg Tab) 20 mg PO DAILY@0700 ASIYA Stop: 11/24/22 06:59 Last Admin: 11/13/22 05:27 Dose: 20 mg Documented By: JLP(2) Admin: 11/12/22 05:30 Dose: 20 mg Documented By: Admin: 11/11/22 05:50 Dose: 20 mg Documented By: Admin: 11/10/22 05:58 Dose: 20 mg Documented By: Admin: 11/09/22 06:05 Dose: 20 mg Documented By: Admin: 11/08/22 06:23 Dose: 20 mg Documented By: Admin: 11/07/22 05:46 Dose: 20 mg Documented By: EML(2) Admin: 11/06/22 05:44 Dose: 20 mg Documented By: Admin: 11/05/22 06:11 Dose: 20 mg Documented By: Admin: 11/04/22 06:10 Dose: 20 mg Documented By: Admin: 11/03/22 08:28 Dose: 20 mg Documented By: JORGE LUIS Admin: 11/02/22 14:40 Dose: 20 mg Documented By: JORGE LUIS Admin: 11/02/22 06:30 Dose: Not Given Documented By: Admin: 11/01/22 06:35 Dose: 20 mg Documented By: Admin: 10/31/22 06:15 Dose: 20 mg Documented By: Admin: 10/30/22 06:23 Dose: 20 mg Documented By: Admin: 10/29/22 06:11 Dose: 20 mg Documented By: Admin: 10/28/22 05:52 Dose: 20 mg Documented By: Admin: 10/27/22 05:09 Dose: 20 mg Documented By: Admin: 10/26/22 07:50 Dose: 20 mg Documented By: [id number] Admin: 10/25/22 06:00 Dose: 20 mg Documented By: CHITRA Torsemide (Torsemide 10 Mg Tab) 20 mg PO DAILY@1700 PRN PRN Reason: weight gain>2 lbs Stop: 11/25/22 16:59 Last Admin: 10/31/22 10:30 Dose: 20 mg Documented By: Admin: 10/30/22 08:15 Dose: 20 mg Documented By: Admin: 10/27/22 08:09 Dose: 20 mg Documented By: LARRY Coding Level of Care Code 40898 U Intl Hosp Care Lvl 2 Diagnoses Anxiety F41.9 Adjustment disorder with depressed mood F43.21
[2022-11-13] MEDS: ACETAMINOPHEN 325 MG TAB PO PRN (15:04)
[2022-11-13] MEDS: oxyCODONE HCL IR 5 MG TAB (IMMEDIATE RELEASE) PO PRN (15:04)
--- NOTE | 2022-11-13 17:35 | Hospitalist Progress Note ---
Date of Service November 13, 2022 Assessment & Plan (1) SOB (shortness of breath): Plan: Acute on Chronic related to COPD, OHS, RASHAAD, CHF. Now resolved and back to baseline. Continue prn Duonebs and inhalers. Hypertonic saline nebs have been discontinued, no chest PT needed. Now at baseline and awaiting home health arrangements. (2) Chronic diastolic congestive heart failure: Plan: Acute on chronic combined systolic and diastolic CHF. Most recent ejection fraction 45%. Now back to baseline. Received some IV diuresis early on. Continue torsemide 20 mg daily and prn dose in the afternoon-for weight gain over 2 pounds. She declines to take extra afternoon dose in the hospital due to difficulty getting to the bathroom quickly. She says she'll take the extra dose when she gets home. Continue spironolactone, metoprolol, isosorbide mononitrate, ASA, atorvastatin. Limit salt intake. (3) Atypical chest pain: Plan: related to acute HFpEF as above. Resolved. No evidence of acute coronary syndrome. (4) Weakness: Plan: Related to morbid obesity and chronic R femur fx with nonunion. On oxycodone as needed and Tylenol. 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 Continue PT/OT. Pain control measures (6) Hypothyroidism (acquired): Plan: Continue Levothyroxine, recent increased from 200mcg daily to 225mcg in mid Oct for elevated TSH. TSH repeated on 10/22 and is now normal at 1.1 (7) CKD stage 4 due to type 2 diabetes mellitus: Plan: (baseline creatinine 1.3-1.8). Monitor intake and output. Serial labs. Avoid nephrotoxins. (8) GERD (gastroesophageal reflux disease): Plan: Treated with protonix (9) Insulin-requiring or dependent type II diabetes mellitus: Plan: ADA diet. Now on an home insulin pump. Continue Jardiance. Hemoglobin A1c on 10/22 down to 7.2%. f/u with Endocrinology after discharge. (10) Anxiety: Plan: Stable on bupropion (11) Morbid obesity with BMI of 60.0-69.9, adult: Plan: Markedly elevated BMI. Weight loss medication- consider starting if patient willing. (12) Congestive heart failure: Plan: Acute on chronic combined systolic/diastolic CHF. Most recent ejection fraction 45%. Now resolved with diuresis. Continue current medication therapy Plan Anticipate eventual discharge to home with assistance when arrangements are finalized. Case management is having difficulty finding home care personnel Read their 11/12 note. Admission and Anticipated Discharge Date Admission Date: October 01, 2022 Subjective AT 0915, NO COMPLAINTS Physical Exam Physical Exam: Severely obese pleasant lady, oneill facies, cheerful and sitting on her chair as usual on room air, Head and neck tracheostomy collar on, diffuse fine facial hair most prominently on chin, normal voice without including the tracheostomy stoma chest CTA Trace edema pretibial, scattered scabs over lower legs Normal insight and judgment Results & Data Results & Data ([facility]) Vital Signs (Past 12 Hours) Vital Signs Temp Pulse Pulse Resp BP Pulse Ox O2 Del Method 11/13/22 15:21 78 20 94 Room Air 11/13/22 14:55 37.0 C 74 16 104/61 94 Room Air, Trach Collar 11/13/22 07:45 Room Air 11/13/22 08:05 36.8 C 70 16 126/73 92 Room Air, Trach Collar 11/13/22 08:03 74 20 93 Room Air Medications Administered Home Medications Medication Instructions Recorded Confirmed Last Taken aspirin 81 mg tablet,delayed 81 mg PO QAM 04/06/19 10/01/22 10/01/22 release (Robert Low Dose Aspirin) bupropion HCl 100 mg tablet,12 hr See Rx Instructions .Route .COMPLEX 04/06/19 10/01/22 10/01/22 08:00 sustained-release metoprolol tartrate 25 mg tablet 12.5 mg PO BID 04/06/19 10/01/22 10/01/22 08:00 multivitamin 1 tab PO QAM 04/06/19 10/01/22 10/01/22 pantoprazole 40 mg tablet,delayed 40 mg PO DAILYBB 04/06/19 10/01/22 10/01/22 release spironolactone 25 mg tablet 25 mg PO QAM 04/06/19 10/01/22 10/01/22 topiramate 100 mg tablet 100 mg PO BID 04/06/19 10/01/22 10/01/22 09:00 Oxygen Home #1 ea 06/28/19 03/22/22 Unknown nitroglycerin 0.4 mg sublingual 0.4 mg sublingual DIRECTED PRN 06/28/19 10/01/22 10/01/22 14:05 tablet Chest Pain nebulizers #1 ea 12/24/20 10/04/22 Unknown betamethasone dipropionate 0.05 % 1 applic topical BID PRN Skin 02/27/21 10/01/22 Unknown topical cream Irritation ipratropium 0.5 mg-albuterol 3 mg 3 ml inhalation Q4H PRN COUGHING, 02/27/21 10/01/22 07/24/22 (2.5 mg base)/3 mL nebulization WHEEZING, SHORTNESS OF BREATH soln folic acid 1 mg tablet 1 mg PO QAM #0 tabs 04/19/21 10/01/22 10/01/22 blood sugar diagnostic (Contour #[phone] ea 09/29/21 10/04/22 Unknown Next Test Strips) albuterol sulfate 90 mcg/actuation 2 puff inhalation Q4 PRN Shortness 11/25/21 10/01/22 Unknown aerosol inhaler Of Breath atorvastatin 40 mg tablet 40 mg PO QPM #90 tabs 01/14/22 10/01/22 09/30/22 acetaminophen 500 mg tablet 500 mg PO QPM 03/23/22 10/01/22 09/30/22 (Tylenol Extra Strength) acidophilus 100 million 1 cap PO QAM 03/23/22 10/01/22 10/01/22 cell-pectin, citrus 10 mg capsule torsemide 10 mg tablet 10 mg PO BID 07/24/22 10/01/22 10/01/22 07:00 insulin glargine 100 unit/mL (3 80 unit (0.8 mL) subcut BID #48 mL 09/07/22 10/01/22 10/01/22 08:00 mL) subcutaneous pen isosorbide mononitrate 30 mg 30 mg PO QAM #30 tabs 09/07/22 10/01/22 10/01/22 tablet,extended release 24 hr oxycodone 5 mg tablet 10 mg PO Q8H PRN pain #10 tabs 09/07/22 10/01/22 10/01/22 08:22 acetaminophen 325 mg tablet 650 mg PO Q6H PRN FEVER/PAIN 10/01/22 10/01/22 Unknown (Tylenol) docusate sodium 100 mg capsule 100 mg PO BID 10/01/22 10/01/22 10/01/22 08:00 insulin lispro 100 unit/mL 1 sliding scale dose subcut 10/01/22 10/01/22 10/01/22 11:30 subcutaneous pen (Humalog KwikPen USEASDIRECTD 2 UNITS (U-100) Insulin) ipratropium 20 mcg-albuterol 100 1 puff inhalation QID 10/01/22 10/01/22 10/01/22 12:00 mcg/actuation mist for inhalation (Combivent Respimat) levothyroxine 200 mcg tablet 200 mcg PO DAILYBB 10/01/22 10/01/22 10/01/22 levothyroxine 25 mcg tablet 25 mcg PO DAILYBB 10/01/22 10/01/22 10/01/22 magnesium oxide 400 mg PO QAM 10/01/22 10/01/22 10/01/22 potassium chloride 20 mEq 20 meq PO BID 10/01/22 10/01/22 10/01/22 08:00 tablet,extended release sulfamethoxazole 800 1 tab PO BID 10/01/22 10/01/22 10/01/22 08:00 mg-trimethoprim 160 mg tablet (Bactrim DS) Active Medications Generic Name Dose Route Start Last Admin Trade Name Freq PRN Reason Stop Dose Admin Acetaminophen 650 mg 11/01/22 12:26 11/13/22 15:04 Acetaminophen 325 Mg Tab PO 12/01/22 12:25 650 mg Q4H PRN Administration Pain or Fever Albuterol 3 ml 11/06/22 08:13 11/13/22 15:20 Albut/Ipratrop 3mg/0.5mg Neb 3 Ml Vial NEB 12/06/22 10:59 3 ml Q4R PRN Administration wheezing Protocol Aspirin 81 mg 10/02/22 09:00 11/13/22 08:23 Aspirin 81 Mg Ectab PO 12/02/22 08:59 81 mg QAM ASIYA Administration Atorvastatin Calcium 40 mg 10/31/22 21:20 11/12/22 20:59 Atorvastatin 40 Mg Tab PO 11/30/22 21:19 40 mg QPM ASIYA Administration Azithromycin 250 mg 10/27/22 09:00 11/12/22 08:57 Azithromycin 250 Mg Tab PO 11/26/22 08:59 250 mg MoWeFr ASIYA Administration Bupropion HCl 100 mg 10/02/22 09:00 11/13/22 08:23 Bupropion Sr 100 Mg Tabcr PO 12/02/22 08:59 100 mg QAM ASIYA Administration Bupropion HCl 200 mg 10/01/22 22:00 11/12/22 21:00 Bupropion Sr 100 Mg Tabcr PO 12/02/22 21:59 200 mg PM ASIYA Administration Diclofenac Sodium 2 gm 10/21/22 23:26 11/01/22 08:25 Diclofenac Sod 1% Gel 100 Gm Tube EXT 11/21/22 08:59 2 gm BID PRN Administration joint pain Protocol Docusate Sodium 100 mg 11/03/22 10:00 11/13/22 08:21 Docusate Sodium 100 Mg Cap PO 12/03/22 09:59 100 mg BID ASIYA Administration Folic Acid 1 mg 10/02/22 09:00 11/13/22 08:22 Folic Acid 1 Mg Tab PO 12/02/22 08:59 1 mg QAM ASIYA Administration Heparin Sodium (Porcine) 5,000 units 10/01/22 22:00 11/13/22 15:51 Heparin Sod 5,000 Unit/0.5 Ml Vial SQ 12/02/22 21:59 5,000 units Q8 ASIYA Administration Insulin Aspart 1 each 11/01/22 15:00 11/13/22 13:17 Insulin, Rapid-Acting Pump N/A 12/01/22 14:59 1 each ACHS ASIYA Administration Protocol Isosorbide Mononitrate 30 mg 10/02/22 09:00 11/13/22 08:24 Isosorbide Cavalier Extended Rel 30 Mg Tabcr PO 12/02/22 08:59 30 mg QAM ASIYA Administration Levothyroxine Sodium 25 mcg 10/02/22 06:30 11/13/22 05:23 Levothyroxine Sodium 25 Mcg Tablet PO 12/02/22 06:29 25 mcg DAILYBB ASIYA Administration Levothyroxine Sodium 200 mcg 10/02/22 06:30 11/13/22 05:23 Levothyroxine Sodium 200 Mcg Tablet PO 12/02/22 06:29 200 mcg DAILYBB ASIYA Administration Magnesium Oxide 400 mg 10/02/22 09:00 11/13/22 08:20 Magnesium Oxide 400 Mg Tab PO 12/02/22 08:59 400 mg QAM ASIYA Administration Metoprolol Tartrate 12.5 mg 10/31/22 22:00 11/13/22 08:23 Metoprolol Tartrate 25 Mg Tab PO 11/30/22 21:59 12.5 mg BID ASIYA Administration Multivitamins 1 tab 10/02/22 09:00 11/13/22 08:22 Multivitamin Tab PO 12/02/22 08:59 1 tab QAM ASIYA Administration Oxycodone HCl 5 mg 10/18/22 13:32 11/13/22 15:04 Oxycodone Hcl Ir 5 Mg Tab (Immediate Release) PO 12/02/22 13:31 5 mg Q6H PRN Administration Pain scale >7 or pre-PT Pantoprazole Sodium 40 mg 10/02/22 06:30 11/13/22 05:23 Pantoprazole 40 Mg Tab PO 12/02/22 06:29 40 mg DAILYBB ASIYA Administration Potassium Chloride 20 meq 10/15/22 10:00 11/13/22 08:24 Potassium Chloride Crtab 20 Meq Tabcr PO 11/14/22 09:59 20 meq QAM ASIYA Administration Spironolactone 25 mg 10/02/22 09:00 11/13/22 08:22 Spironolactone 25 Mg Tab PO 12/02/22 08:59 25 mg QAM ASIYA Administration Topiramate 100 mg 10/27/22 09:00 11/13/22 08:23 Topiramate 100 Mg Tab PO 11/26/22 08:59 100 mg QAM ASIYA Administration Topiramate 200 mg 10/26/22 21:00 11/12/22 21:00 Topiramate 100 Mg Tab PO 11/25/22 20:59 200 mg HS ASIYA Administration Torsemide 20 mg 10/25/22 07:00 11/13/22 05:27 Torsemide 20 Mg Tab PO 11/24/22 06:59 20 mg DAILY@0700 ASIYA Administration Torsemide 20 mg 10/26/22 09:26 10/31/22 10:30 Torsemide 10 Mg Tab PO 11/25/22 16:59 20 mg DAILY@1700 PRN Administration weight gain>2 lbs PG Care Time/CCT Total # of Minutes Spent Total Time Spent with Patient: Total time spent is greater than 50% in coordination of care (as documented) at patient's floor/unit and/or counseling patient: Coding Level of Care Code 32539 Subseq Hosp Care Lvl 1 Diagnoses SOB (shortness of breath) R06.02 Chronic diastolic congestive heart failure I50.32 Atypical chest pain R07.89 Weakness R53.1 Fracture of distal end of right femur S72.401A Hypothyroidism (acquired) E03.9 CKD stage 4 due to type 2 diabetes mellitus E11.22; N18.4 GERD (gastroesophageal reflux disease) K21.9 Insulin-requiring or dependent type II diabetes mellitus E11.9; Z79.4 Anxiety F41.9 Morbid obesity with BMI of 60.0-69.9, adult E66.01; Z68.44 Congestive heart failure I50.9
[2022-11-13] MEDS: ATORVASTATIN 40 MG TAB PO SCH (20:06)
[2022-11-14] MEDS: PANTOprazole 40 MG TAB PO SCH (05:28)
[2022-11-14] MEDS: LEVOTHYROXINE SODIUM 200 MCG TABLET PO SCH (05:28)
[2022-11-14] MEDS: LEVOTHYROXINE SODIUM 25 MCG TABLET PO SCH (05:28)
[2022-11-14] MEDS: HEPARIN SOD 5,000 UNIT/0.5 ML VIAL SQ SCH ×3 (05:29→21:32)
[2022-11-14] MEDS: TORSEMIDE 20 MG TAB PO SCH (05:29)
[2022-11-14] MEDS ORDERED: PHARMACY GLYCEMIC MGMT CONSULT PRN (08:15)
[2022-11-14] MEDS: ALBUT/IPRATROP 3MG/0.5MG NEB 3 ML VIAL NEB PRN ×2 (08:19→15:42)
[2022-11-14] MEDS: INSULIN, Rapid-Acting PUMP SCH (08:34)
--- NOTE | 2022-11-14 08:49 | Pharmacy Report ---
Pharmacy Glycemic Short Note 2 - Date of Service November 14, 2022 - Glycemic Short BSG Results (Last 24 hours): 11/13/22 11/13/22 11/13/22 12:11 17:49 20:24 POC Glucose 140 H 147 H 144 H 11/14/22 07:51 POC Glucose 141 H OUTPATIENT ANTIDIABETIC REGIMEN: * Lantus 80 units SC BID * Humalog scale * HbA1C = 8.9% (07/25/22) ASSESSMENT: 11/14: * Patient has been well-controlled on home insulin pump since 11/01/22 * Pharmacy re-consulted this morning due to patient not having insulin pump supplies available today for transition to SC basal/bolus regimen * Discussed with RN, insulin pump had already been removed at time of consult so will not overlap with basal - ordered SC insulin to be given immediately * Will order prior SC regimen from this admission, which worked well for this patient * Will plan to transition back to insulin pump once pump supplies/CDE are available for transition 11/01: * Patient received total of 268 units of insulin yesterday, of which 140 units were basal insulin. Evening Lantus dose last night given earlier so that we can transition back to insulin pump this afternoon. Plan to have patient start insulin pump at ~1500 today. Went and spoke with patient and she feels comfortable with attaching her insulin pump and managing it herself. She reports she has all the supplies for the pump. Will add some overnight BSG checks to ensure stable. 10/26/22 * Ms Connelly has been requiring ~180 units of insulin per day, with stable glycemic control for the past few days. She is also receiving Jardiance 10mg daily. * Pt would like to go back to using her insulin pump after discharge. RN has spoken with patient, and she will arrange for her daughter to bring her pump supplies into the hospital prior to discharge. * Ideally, we will be able to make this transition prior to discharge to ensure that pump is working adequately/safely prior to return home. * CDE has also been consulted to assist with transition. PLAN FOR INPATIENT GLYCEMIC CONTROL: * Jardiance 10 mg PO AM * Basal insulin * 70 units SC BID * Bolus insulin * Goal BSG Range: Low 110 mg/dL, High 140 mg/dL * Correction Factor: 5 mg/dL/unit * Carbohydrate ratio = 1.5 g/unit
[2022-11-14] MEDS: TOPIRAMATE 100 MG TAB PO SCH ×2 (09:06→21:32)
[2022-11-14] MEDS: SPIRONOLACTONE 25 MG TAB PO SCH (09:06)
[2022-11-14] MEDS: MAGNESIUM OXIDE 400 MG TAB PO SCH (09:06)
[2022-11-14] MEDS: ISOSORBIDE MONO EXTENDED REL 30 MG TABCR PO SCH (09:07)
[2022-11-14] MEDS: MULTIVITAMIN TAB PO SCH (09:07)
[2022-11-14] MEDS: METOPROLOL TARTRATE 25 MG TAB PO SCH ×2 (09:07→21:33)
[2022-11-14] MEDS: POTASSIUM CHLORIDE CRTAB 20 MEQ TABCR PO SCH (09:07)
[2022-11-14] MEDS: TORSEMIDE 10 MG TAB PO PRN (09:07)
[2022-11-14] MEDS: DOCUSATE SODIUM 100 MG CAP PO SCH ×2 (09:07→21:32)
[2022-11-14] MEDS: FOLIC ACID 1 MG TAB PO SCH (09:07)
[2022-11-14] MEDS: buPROPion SR 100 MG TABCR PO SCH ×2 (09:07→21:32)
[2022-11-14] MEDS: ASPIRIN 81 MG ECTAB PO SCH (09:08)
[2022-11-14] MEDS: LANTUS PER UNIT CHARGE SQ SCH ×2 (09:10→21:20)
[2022-11-14] MEDS: INSULIN ASPART PER UNIT SC SCH ×4 (09:10→21:20)
[2022-11-14] MEDS: EMPAGLIFLOZIN 10 MG TAB PO SCH (13:23)
[2022-11-14] MEDS: oxyCODONE HCL IR 5 MG TAB (IMMEDIATE RELEASE) PO PRN (13:24)
--- NOTE | 2022-11-14 18:25 | Hospitalist Progress Note ---
Date of Service November 14, 2022 Assessment & Plan (1) SOB (shortness of breath): Plan: Acute on Chronic related to COPD, OHS, RASHAAD, CHF. Now resolved and back to baseline. Continue prn Duonebs and inhalers. Hypertonic saline nebs have been discontinued, no chest PT needed. Now at baseline and awaiting home health arrangements. (2) Chronic diastolic congestive heart failure: Plan: Acute on chronic combined systolic and diastolic CHF. Most recent ejection fraction 45%. Now back to baseline. Received some IV diuresis early on. Continue torsemide 20 mg daily and prn dose in the afternoon-for weight gain over 2 pounds. She declines to take extra afternoon dose in the hospital due to difficulty getting to the bathroom quickly. She says she'll take the extra dose when she gets home. Continue spironolactone, metoprolol, isosorbide mononitrate, ASA, atorvastatin. Limit salt intake. (3) Atypical chest pain: Plan: related to acute HFpEF as above. Resolved. No evidence of acute coronary syndrome. (4) Weakness: Plan: Related to morbid obesity and chronic R femur fx with nonunion. On oxycodone as needed and Tylenol. 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 Continue PT/OT. Pain control measures (6) Hypothyroidism (acquired): Plan: Continue Levothyroxine, recent increased from 200mcg daily to 225mcg in mid Oct for elevated TSH. TSH repeated on 10/22 and is now normal at 1.1 (7) CKD stage 4 due to type 2 diabetes mellitus: Plan: (baseline creatinine 1.3-1.8). Monitor intake and output. Serial labs. Avoid nephrotoxins. (8) GERD (gastroesophageal reflux disease): Plan: Treated with protonix (9) Insulin-requiring or dependent type II diabetes mellitus: Plan: ADA diet. Now on an home insulin pump. Today her supplies were missing and has been getting sliding scale coverage by pharmacyexpects to get back insulin pump supplies tomorrow Continue Jardiance. Hemoglobin A1c on 10/22 down to 7.2%. f/u with Endocrinology after discharge. (10) Anxiety: Plan: Stable on bupropion (11) Morbid obesity with BMI of 60.0-69.9, adult: Plan: Markedly elevated BMI. Weight loss medication- 11/14-patient does not want to discuss at this time. Does have a primary care physician who she is not seen in almost a year because of her rehab facility stays. Urged to broach the subject with her primary care physician because they are an excellent weight loss medications in the market and some of them antidiabetic drugs (12) Congestive heart failure: Plan: Acute on chronic combined systolic/diastolic CHF. Most recent ejection fraction 45%. Now resolved with diuresis. Continue current medication therapy Plan Anticipate eventual discharge to home with assistance when arrangements are finalized. Case management is having difficulty finding home care personnel Read their 11/12 note. Admission and Anticipated Discharge Date Admission Date: October 01, 2022 Subjective at 1130, was giving herself a bath in her chair with a washcloth, cheerful no complaints Physical Exam Physical Exam: Exam deferred today. 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 [employer] Results & Data Results & Data ([facility]) Vital Signs (Past 12 Hours) Vital Signs Temp Pulse Resp BP Pulse Ox O2 Del Method 11/14/22 15:43 78 18 96 Room Air 11/14/22 14:24 36.6 C 78 18 106/62 94 Room Air 11/14/22 07:25 Room Air 11/14/22 08:19 75 20 93 Room Air 11/14/22 06:57 36.7 C 77 16 133/74 94 Room Air Medications Administered Home Medications Medication Instructions Recorded Confirmed Last Taken aspirin 81 mg tablet,delayed 81 mg PO QAM 04/06/19 10/01/22 10/01/22 release (Robert Low Dose Aspirin) bupropion HCl 100 mg tablet,12 hr See Rx Instructions .Route .COMPLEX 04/06/19 10/01/22 10/01/22 08:00 sustained-release metoprolol tartrate 25 mg tablet 12.5 mg PO BID 04/06/19 10/01/22 10/01/22 08:00 multivitamin 1 tab PO QAM 04/06/19 10/01/22 10/01/22 pantoprazole 40 mg tablet,delayed 40 mg PO DAILYBB 04/06/19 10/01/22 10/01/22 release spironolactone 25 mg tablet 25 mg PO QAM 04/06/19 10/01/22 10/01/22 topiramate 100 mg tablet 100 mg PO BID 04/06/19 10/01/22 10/01/22 09:00 Oxygen Home #1 ea 06/28/19 03/22/22 Unknown nitroglycerin 0.4 mg sublingual 0.4 mg sublingual DIRECTED PRN 06/28/19 10/01/22 10/01/22 14:05 tablet Chest Pain nebulizers #1 ea 12/24/20 10/04/22 Unknown betamethasone dipropionate 0.05 % 1 applic topical BID PRN Skin 02/27/2109/21 Unknown topical cream Irritation ipratropium 0.5 mg-albuterol 3 mg 3 ml inhalation Q4H PRN COUGHING, 02/27/21 10/01/22 07/24/22 (2.5 mg base)/3 mL nebulization WHEEZING, SHORTNESS OF BREATH soln folic acid 1 mg tablet 1 mg PO QAM #0 tabs 04/19/21 10/01/22 10/01/22 blood sugar diagnostic (Contour #300 ea 09/29/21 10/04/22 Unknown Next Test Strips) albuterol sulfate 90 mcg/actuation 2 puff inhalation Q4 PRN Shortness 11/25/21 10/01/22 Unknown aerosol inhaler Of Breath atorvastatin 40 mg tablet 40 mg PO QPM #90 tabs 01/14/22 10/01/22 09/30/22 acetaminophen 500 mg tablet 500 mg PO QPM 03/23/22 10/01/22 09/30/22 (Tylenol Extra Strength) acidophilus 100 million 1 cap PO QAM 03/23/22 10/01/22 10/01/22 cell-pectin, citrus 10 mg capsule torsemide 10 mg tablet 10 mg PO BID 07/24/22 10/01/22 10/01/22 07:00 insulin glargine 100 unit/mL (3 80 unit (0.8 mL) subcut BID #48 mL 09/07/22 10/01/22 10/01/22 08:00 mL) subcutaneous pen isosorbide mononitrate 30 mg 30 mg PO QAM #30 tabs 09/07/22 10/01/22 10/01/22 tablet,extended release 24 hr oxycodone 5 mg tablet 10 mg PO Q8H PRN pain #10 tabs 09/07/22 10/01/22 10/01/22 08:22 acetaminophen 325 mg tablet 650 mg PO Q6H PRN FEVER/PAIN 10/01/22 10/01/22 Unknown (Tylenol) docusate sodium 100 mg capsule 100 mg PO BID 10/01/22 10/01/22 10/01/22 08:00 insulin lispro 100 unit/mL 1 sliding scale dose subcut 10/01/22 10/01/22 10/01/22 11:30 subcutaneous pen (Humalog KwikPen USEASDIRECTD 2 UNITS (U-100) Insulin) ipratropium 20 mcg-albuterol 100 1 puff inhalation QID 10/01/22 10/01/22 10/01/22 12:00 mcg/actuation mist for inhalation (Combivent Respimat) levothyroxine 200 mcg tablet 200 mcg PO DAILYBB 10/01/22 10/01/22 10/01/22 levothyroxine 25 mcg tablet 25 mcg PO DAILYBB 10/01/22 10/01/22 10/01/22 magnesium oxide 400 mg PO QAM 10/01/22 10/01/22 10/01/22 potassium chloride 20 mEq 20 meq PO BID 10/01/22 10/01/22 10/01/22 08:00 tablet,extended release sulfamethoxazole 800 1 tab PO BID 10/01/22 10/01/22 10/01/22 08:00 mg-trimethoprim 160 mg tablet (Bactrim DS) Active Medications Generic Name Dose Route Start Last Admin Trade Name Russellq PRN Reason Stop Dose Admin Acetaminophen 650 mg 11/01/22 12:26 11/13/22 15:04 Acetaminophen 325 Mg Tab PO 12/01/22 12:25 650 mg Q4H PRN Administration Pain or Fever Albuterol 3 ml 11/06/22 08:13 11/14/22 15:42 Albut/Ipratrop 3mg/0.5mg Neb 3 Ml Vial NEB 12/06/22 10:59 3 ml Q4R PRN Administration wheezing Protocol Aspirin 81 mg 10/02/22 09:00 11/14/22 09:08 Aspirin 81 Mg Ectab PO 12/02/22 08:59 81 mg QAM ASIYA Administration Atorvastatin Calcium 40 mg 10/31/22 21:20 11/13/22 20:06 Atorvastatin 40 Mg Tab PO 11/30/22 21:19 40 mg QPM ASIYA Administration Azithromycin 250 mg 10/27/22 09:00 11/12/22 08:57 Azithromycin 250 Mg Tab PO 11/26/22 08:59 250 mg MoWeFr ASIYA Administration Bupropion HCl 100 mg 10/02/22 09:00 11/14/22 09:07 Bupropion Sr 100 Mg Tabcr PO 12/02/22 08:59 100 mg QAM ASIYA Administration Bupropion HCl 200 mg 10/01/22 22:00 11/13/22 20:06 Bupropion Sr 100 Mg Tabcr PO 12/02/22 21:59 200 mg PM ASIYA Administration Diclofenac Sodium 2 gm 10/21/22 23:26 11/01/22 08:25 Diclofenac Sod 1% Gel 100 Gm Tube EXT 11/21/22 08:59 2 gm BID PRN Administration joint pain Protocol Docusate Sodium 100 mg 11/03/22 10:00 11/14/22 09:07 Docusate Sodium 100 Mg Cap PO 12/03/22 09:59 100 mg BID ASIYA Administration Empagliflozin 10 mg 11/14/22 12:30 11/14/22 13:23 Empagliflozin 10 Mg Tab PO 12/14/22 12:29 10 mg QAM ASIYA Administration Folic Acid 1 mg 10/02/22 09:00 11/14/22 09:07 Folic Acid 1 Mg Tab PO 12/02/22 08:59 1 mg QAM ASIYA Administration Heparin Sodium (Porcine) 5,000 units 10/01/22 22:00 11/14/22 13:23 Heparin Sod 5,000 Unit/0.5 Ml Vial SQ 12/02/22 21:59 5,000 units Q8 ASIYA Administration Insulin Aspart 0 units 11/14/22 08:30 11/14/22 18:01 Insulin Aspart Per Unit SC 12/14/22 08:29 45 units ACHS ASIYA Administration Insulin Glargine 70 units 11/14/22 08:30 11/14/22 09:10 Lantus Per Unit Charge SQ 12/14/22 08:29 70 units BID ASIYA Administration Isosorbide Mononitrate 30 mg 10/02/22 09:00 11/14/22 09:07 Isosorbide [place] Extended Rel 30 Mg Tabcr PO 12/02/22 08:59 30 mg QAM ASIYA Administration Levothyroxine Sodium 25 mcg 10/02/22 06:30 11/14/22 05:28 Levothyroxine Sodium 25 Mcg Tablet PO 12/02/22 06:29 25 mcg DAILYBB ASIYA Administration Levothyroxine Sodium 200 mcg 10/02/22 06:30 11/14/22 05:28 Levothyroxine Sodium 200 Mcg Tablet PO 12/02/22 06:29 200 mcg DAILYBB ASIYA Administration Magnesium Oxide 400 mg 10/02/22 09:00 11/14/22 09:06 Magnesium Oxide 400 Mg Tab PO 12/02/22 08:59 400 mg QAM ASIYA Administration Metoprolol Tartrate 12.5 mg 10/31/22 22:00 11/14/22 09:07 Metoprolol Tartrate 25 Mg Tab PO 11/30/22 21:59 12.5 mg BID ASIYA Administration Multivitamins 1 tab 10/02/22 09:00 11/14/22 09:07 Multivitamin Tab PO 12/02/22 08:59 1 tab QAM ASIYA Administration Oxycodone HCl 5 mg 10/18/22 13:32 11/14/22 13:24 Oxycodone Hcl Ir 5 Mg Tab (Immediate Release) PO 12/02/22 13:31 5 mg Q6H PRN Administration Pain scale >7 or pre-PT Pantoprazole Sodium 40 mg 10/02/22 06:30 11/14/22 05:28 Pantoprazole 40 Mg Tab PO 12/02/22 06:29 40 mg DAILYBB ASIYA Administration Spironolactone 25 mg 10/02/22 09:00 11/14/22 09:06 Spironolactone 25 Mg Tab PO 12/02/22 08:59 25 mg QAM ASIYA Administration Topiramate 100 mg 10/27/22 09:00 11/14/22 09:06 Topiramate 100 Mg Tab PO 11/26/22 08:59 100 mg QAM ASIYA Administration Topiramate 200 mg 10/26/22 21:00 11/13/22 20:07 Topiramate 100 Mg Tab PO 11/25/22 20:59 200 mg HS ASIYA Administration Torsemide 20 mg 10/25/22 07:00 11/14/22 05:29 Torsemide 20 Mg Tab PO 11/24/22 06:59 20 mg DAILY@0700 ASIYA Administration Torsemide 20 mg 10/26/22 09:26 11/14/22 09:07 Torsemide 10 Mg Tab PO 11/25/22 16:59 20 mg DAILY@1700 PRN Administration weight gain>2 lbs PG Care Time/CCT Total # of Minutes Spent Total Time Spent with Patient: Total time spent is greater than 50% in coordination of care (as documented) at patient's floor/unit and/or counseling patient: Coding Level of Care Code 98387 Subseq Hosp Care Lvl 1 Diagnoses SOB (shortness of breath) R06.02 Chronic diastolic congestive heart failure I50.32 Atypical chest pain R07.89 Weakness R53.1 Fracture of distal end of right femur S72.401A Hypothyroidism (acquired) E03.9 CKD stage 4 due to type 2 diabetes mellitus E11.22; N18.4 GERD (gastroesophageal reflux disease) K21.9 Insulin-requiring or dependent type II diabetes mellitus E11.9; Z79.4 Anxiety F41.9 Morbid obesity with BMI of 60.0-69.9, adult E66.01; Z68.44 Congestive heart failure I50.9
[2022-11-14] MEDS: ATORVASTATIN 40 MG TAB PO SCH (21:32)
[2022-11-15] MEDS: LEVOTHYROXINE SODIUM 25 MCG TABLET PO SCH (06:19)
[2022-11-15] MEDS: LEVOTHYROXINE SODIUM 200 MCG TABLET PO SCH (06:19)
[2022-11-15] MEDS: TORSEMIDE 20 MG TAB PO SCH (06:19)
[2022-11-15] MEDS: PANTOprazole 40 MG TAB PO SCH (06:20)
[2022-11-15] MEDS: HEPARIN SOD 5,000 UNIT/0.5 ML VIAL SQ SCH ×3 (06:20→20:42)
[2022-11-15] MEDS: ALBUT/IPRATROP 3MG/0.5MG NEB 3 ML VIAL NEB PRN (06:55)
[2022-11-15] MEDS: INSULIN ASPART PER UNIT SC SCH (10:29)
[2022-11-15] MEDS: LANTUS PER UNIT CHARGE SQ SCH (10:32)
[2022-11-15] MEDS: ASPIRIN 81 MG ECTAB PO SCH (10:43)
[2022-11-15] MEDS: ISOSORBIDE MONO EXTENDED REL 30 MG TABCR PO SCH (10:44)
[2022-11-15] MEDS: MAGNESIUM OXIDE 400 MG TAB PO SCH (10:44)
[2022-11-15] MEDS: buPROPion SR 100 MG TABCR PO SCH ×2 (10:44→20:40)
[2022-11-15] MEDS: AZITHROMYCIN 250 MG TAB PO SCH (10:44)
[2022-11-15] MEDS: DOCUSATE SODIUM 100 MG CAP PO SCH ×2 (10:44→20:40)
[2022-11-15] MEDS: MULTIVITAMIN TAB PO SCH (10:44)
[2022-11-15] MEDS: METOPROLOL TARTRATE 25 MG TAB PO SCH ×2 (10:44→20:40)
[2022-11-15] MEDS: FOLIC ACID 1 MG TAB PO SCH (10:44)
[2022-11-15] MEDS: SPIRONOLACTONE 25 MG TAB PO SCH (10:44)
[2022-11-15] MEDS: TOPIRAMATE 100 MG TAB PO SCH ×2 (10:45→20:41)
[2022-11-15] MEDS: EMPAGLIFLOZIN 10 MG TAB PO SCH (10:45)
[2022-11-15] MEDS ORDERED: INSULIN ASPART 100 UNITS/ML VIAL SC PRN (12:19)
--- NOTE | 2022-11-15 12:26 | Pharmacy Report ---
Pharmacy Glycemic Short Note 2 - Date of Service November 15, 2022 - Glycemic Short BSG Results (Last 24 hours): 11/14/22 11/14/22 11/15/22 17:03 20:34 08:31 POC Glucose 165 H 147 H 150 H OUTPATIENT ANTIDIABETIC REGIMEN: * Humalog pump: Basal 5.5 units/hr, CR 1.8 CF 10 * HbA1C = 8.9% (07/25/22) ASSESSMENT: 11/15: * Patient's blood sugars well controlled on SQ regimen, now has supplies and would like to transition back to her insulin pump * Patient to restart pump with lunch today (some overlap w/ AM Lantus) * Pharmacy to sign off of glycemic consult at this time 11/14: * Patient has been well-controlled on home insulin pump since 11/01/22 * Pharmacy re-consulted this morning due to patient not having insulin pump supplies available today for transition to SC basal/bolus regimen * Discussed with RN, insulin pump had already been removed at time of consult so will not overlap with basal - ordered SC insulin to be given immediately * Will order prior SC regimen from this admission, which worked well for this patient * Will plan to transition back to insulin pump once pump supplies/CDE are available for transition 11/01: * Patient received total of 268 units of insulin yesterday, of which 140 units were basal insulin. Evening Lantus dose last night given earlier so that we can transition back to insulin pump this afternoon. Plan to have patient start insulin pump at ~1500 today. Went and spoke with patient and she feels comfortable with attaching her insulin pump and managing it herself. She reports she has all the supplies for the pump. Will add some overnight BSG checks to ensure stable. 10/26/22 * Ms Connelly has been requiring ~180 units of insulin per day, with stable glycemic control for the past few days. She is also receiving Jardiance 10mg daily. * Pt would like to go back to using her insulin pump after discharge. RN has spoken with patient, and she will arrange for her daughter to bring her pump supplies into the hospital prior to discharge. * Ideally, we will be able to make this transition prior to discharge to ensure that pump is working adequately/safely prior to return home. * CDE has also been consulted to assist with transition. PLAN FOR INPATIENT GLYCEMIC CONTROL: * Jardiance 10 mg PO AM * Insulin pump per home regimen
[2022-11-15] MEDS: INSULIN, Rapid-Acting PUMP SCH ×3 (12:48→21:59)
[2022-11-15] MEDS: ATORVASTATIN 40 MG TAB PO SCH (20:40)
--- NOTE | 2022-11-15 21:43 | Hospitalist Progress Note ---
Date of Service November 15, 2022 Assessment & Plan (1) SOB (shortness of breath): Plan: Acute on Chronic related to COPD, OHS, RASHAAD, CHF. Now resolved and back to baseline. Continue prn Duonebs and inhalers. Hypertonic saline nebs have been discontinued, no chest PT needed. Now at baseline and awaiting home health arrangements. (2) Chronic diastolic congestive heart failure: Plan: Acute on chronic combined systolic and diastolic CHF. Most recent ejection fraction 45%. Now back to baseline. Received some IV diuresis early on. Continue torsemide 20 mg daily and prn dose in the afternoon-for weight gain over 2 pounds. She declines to take extra afternoon dose in the hospital due to difficulty getting to the bathroom quickly. She says she'll take the extra dose when she gets home. Continue spironolactone, metoprolol, isosorbide mononitrate, ASA, atorvastatin. Limit salt intake. (3) Atypical chest pain: Plan: related to acute HFpEF as above. Resolved. No evidence of acute coronary syndrome. (4) Weakness: Plan: Related to morbid obesity and chronic R femur fx with nonunion. On oxycodone as needed and Tylenol. 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 Continue PT/OT. Pain control measures (6) Hypothyroidism (acquired): Plan: Continue Levothyroxine, recent increased from 200mcg daily to 225mcg in mid Oct for elevated TSH. TSH repeated on 10/22 and is now normal at 1.1 (7) CKD stage 4 due to type 2 diabetes mellitus: Plan: (baseline creatinine 1.3-1.8). Monitor intake and output. Serial labs. Avoid nephrotoxins. (8) GERD (gastroesophageal reflux disease): Plan: Treated with protonix (9) Insulin-requiring or dependent type II diabetes mellitus: Plan: ADA diet. Now on an home insulin pump. Today her supplies were missing and has been getting sliding scale coverage by pharmacyexpects to get back insulin pump supplies tomorrow Continue Jardiance. Hemoglobin A1c on 10/22 down to 7.2%. f/u with Endocrinology after discharge. (10) Anxiety: Plan: Stable on bupropion (11) Morbid obesity with BMI of 60.0-69.9, adult: Plan: Markedly elevated BMI. Weight loss medication- 11/14-patient does not want to discuss at this time. Does have a primary care physician who she is not seen in almost a year because of her rehab facility stays. Urged to broach the subject with her primary care physician because they are an excellent weight loss medications in the market and some of them antidiabetic drugs (12) Congestive heart failure: Plan: Acute on chronic combined systolic/diastolic CHF. Most recent ejection fraction 45%. Now resolved with diuresis. Continue current medication therapy Plan Anticipate eventual discharge to home with assistance when arrangements are finalized. 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 Physical Exam Physical Exam: Sitting in the chair, morbidly obese Chest clear to auscultation Abdomen nontender Extremities no edema Results & Data Results & Data ([facility]) Vital Signs (Past 12 Hours) Vital Signs Temp Pulse Pulse Resp BP Pulse Ox O2 Del Method 11/15/22 20:52 36.9 C 99 H 18 125/73 93 Room Air 11/15/22 16:00 37.1 C 82 16 119/71 94 Room Air 11/15/22 15:04 Room Air, Trach Collar Laboratory Results No lab Medications Administered Reviewed yesterday no change PG Care Time/CCT Total # of Minutes Spent Total Time Spent with Patient: Total time spent is greater than 50% in coordination of care (as documented) at patient's floor/unit and/or counseling patient: Coding Level of Care Code 96141 Subseq Hosp Care Lvl 1 Diagnoses SOB (shortness of breath) R06.02 Chronic diastolic congestive heart failure I50.32 Atypical chest pain R07.89 Weakness R53.1 Fracture of distal end of right femur S72.401A Hypothyroidism (acquired) E03.9 CKD stage 4 due to type 2 diabetes mellitus E11.22; N18.4 GERD (gastroesophageal reflux disease) K21.9 Insulin-requiring or dependent type II diabetes mellitus E11.9; Z79.4 Anxiety F41.9 Morbid obesity with BMI of 60.0-69.9, adult E66.01; Z68.44 Congestive heart failure I50.9
[2022-11-16] MEDS: LEVOTHYROXINE SODIUM 200 MCG TABLET PO SCH (06:39)
[2022-11-16] MEDS: LEVOTHYROXINE SODIUM 25 MCG TABLET PO SCH (06:39)
[2022-11-16] MEDS: PANTOprazole 40 MG TAB PO SCH (06:39)
[2022-11-16] MEDS: TORSEMIDE 20 MG TAB PO SCH (06:41)
[2022-11-16] MEDS: HEPARIN SOD 5,000 UNIT/0.5 ML VIAL SQ SCH ×2 (06:41→14:46)
[2022-11-16] MEDS: INSULIN ASPART PER UNIT SC SCH (07:13)
[2022-11-16] MEDS: ALBUT/IPRATROP 3MG/0.5MG NEB 3 ML VIAL NEB PRN ×2 (07:39→15:31)
[2022-11-16] MEDS: DOCUSATE SODIUM 100 MG CAP PO SCH ×2 (09:53→21:21)
[2022-11-16] MEDS: ISOSORBIDE MONO EXTENDED REL 30 MG TABCR PO SCH (09:53)
[2022-11-16] MEDS: METOPROLOL TARTRATE 25 MG TAB PO SCH ×2 (09:53→21:21)
[2022-11-16] MEDS: EMPAGLIFLOZIN 10 MG TAB PO SCH (09:54)
[2022-11-16] MEDS: MAGNESIUM OXIDE 400 MG TAB PO SCH (09:54)
[2022-11-16] MEDS: SPIRONOLACTONE 25 MG TAB PO SCH (09:54)
[2022-11-16] MEDS: ASPIRIN 81 MG ECTAB PO SCH (09:54)
[2022-11-16] MEDS: TOPIRAMATE 100 MG TAB PO SCH ×2 (09:54→21:22)
[2022-11-16] MEDS: FOLIC ACID 1 MG TAB PO SCH (09:54)
[2022-11-16] MEDS: MULTIVITAMIN TAB PO SCH (09:54)
[2022-11-16] MEDS: INSULIN, Rapid-Acting PUMP SCH ×4 (09:58→22:16)
[2022-11-16] MEDS: buPROPion SR 100 MG TABCR PO SCH ×2 (10:21→21:21)
[2022-11-16] MEDS ORDERED: oxyCODONE HCL IR 5 MG TAB (IMMEDIATE RELEASE) PO PRN (20:19)
--- NOTE | 2022-11-16 20:19 | Hospitalist Progress Note ---
Date of Service November 16, 2022 Assessment & Plan (1) SOB (shortness of breath): Plan: Acute on Chronic related to COPD, OHS, RASHAAD, CHF. Now resolved and back to baseline. Continue prn Duonebs and inhalers. Hypertonic saline nebs have been discontinued, no chest PT needed. Now at baseline and awaiting home health arrangements. (2) Chronic diastolic congestive heart failure: Plan: Acute on chronic combined systolic and diastolic CHF. Most recent ejection fraction 45%. Now back to baseline. Received some IV diuresis early on. Continue torsemide 20 mg daily and prn dose in the afternoon-for weight gain over 2 pounds. She declines to take extra afternoon dose in the hospital due to difficulty getting to the bathroom quickly. She says she'll take the extra dose when she gets home. Continue spironolactone, metoprolol, isosorbide mononitrate, ASA, atorvastatin. Limit salt intake. -check BMP in AM (3) Atypical chest pain: Plan: related to acute HFpEF as above. Resolved. No evidence of acute coronary syndrome. (4) Weakness: Plan: Related to morbid obesity and chronic R femur fx with nonunion. On oxycodone as needed and Tylenol. 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 Continue PT/OT. Pain control measures Increase dose of oxycodone to 10mg for pain scale -10 and keep 5mg for scale 4-7 (6) Hypothyroidism (acquired): Plan: Continue Levothyroxine, recent increased from 200mcg daily to 225mcg in mid Oct for elevated TSH. TSH repeated on 10/22 and is now normal at 1.1 (7) CKD stage 4 due to type 2 diabetes mellitus: Plan: (baseline creatinine 1.3-1.8). Monitor intake and output. Avoid nephrotoxins. follow CMP in AM (8) GERD (gastroesophageal reflux disease): Plan: Treated with protonix (9) Insulin-requiring or dependent type II diabetes mellitus: Plan: ADA diet. Now on an home insulin pump. Continue Jardiance. Hemoglobin A1c on 10/22 down to 7.2%. f/u with Endocrinology after discharge. (10) Anxiety: Plan: Stable on bupropion seen by Psychiatry here for passive suicidal thoughts mentioned to her daughter on phone not suicidal, appreciate Psych consult (11) Morbid obesity with BMI of 60.0-69.9, adult: Plan: Markedly elevated BMI. Weight loss medication- 11/14-patient does not want to discuss at this time. Does have a primary care physician who she is not seen in almost a year because of her rehab facility stays. Urged to broach the subject with her primary care physician because they are an excellent weight loss medications in the market and some of them antidiabetic drugs (12) Congestive heart failure: Plan: Acute on chronic combined systolic/diastolic CH, acute portion resolved. Most recent ejection fraction 45%. Now resolved with diuresis. Continue current medication therapy Plan Anticipate eventual discharge to home with assistance when arrangements are finalized. Case management is having difficulty finding home care personnel for 90 hours of care per week Admission and Anticipated Discharge Date Admission Date: October 01, 2022 Subjective Having more pain in right thigh at fracture site lately. Requesting increased dose of pain meds be available, thinks it's from the cold weather. Is OOB daily to go to the bathroom and work with PT. Denies other concerns other than discharge planning. Moving bowels, eating. Glucose checks acceptable. Review of Systems Review of Systems: All systems reviewed & are unremarkable except as noted in HPI & below Physical Exam Constitutional: WD/WN, vitals as above Eyes: + anicteric sclerae Neck: trachea midline, no thyromegaly + abnormal visual inspection (trach in place) Respiratory: normal respiratory effort, lungs clear to auscultation normal respiratory effort Cardiovascular: RRR, no murmur, no edema Gastrointestinal (Abdomen): normal bowel sounds, soft, nontender, no hepatosplenomegaly Musculoskeletal: Extremities: extremities normal to inspection; no cyanosis and no clubbing Skin: no rashes, warm and dry Neurologic: moves all extremities and awake; no focal motor deficits Psychiatric: A+Ox3, euthymic affect Lymphatic: no lymphedema Results & Data Results & Data ([facility]) Vital Signs (Past 12 Hours) Vital Signs Temp Pulse Resp BP Pulse Ox O2 Del Method 11/16/22 16:05 36.9 C 82 16 121/76 95 Room Air 11/16/22 15:32 79 18 96 Room Air 11/16/22 08:25 Room Air PG Care Time/CCT Total # of Minutes Spent Total Time Spent with Patient: Total time spent is greater than 50% in coordination of care (as documented) at patient's floor/unit and/or counseling patient: Coding Level of Care Code 57323 Subseq Hosp Care Lvl 1 Diagnoses SOB (shortness of breath) R06.02 Chronic diastolic congestive heart failure I50.32 Atypical chest pain R07.89 Weakness R53.1 Fracture of distal end of right femur S72.401A Hypothyroidism (acquired) E03.9 CKD stage 4 due to type 2 diabetes mellitus E11.22; N18.4 GERD (gastroesophageal reflux disease) K21.9 Insulin-requiring or dependent type II diabetes mellitus E11.9; Z79.4 Anxiety F41.9 Morbid obesity with BMI of 60.0-69.9, adult E66.01; Z68.44 Congestive heart failure I50.9
[2022-11-16] MEDS: ATORVASTATIN 40 MG TAB PO SCH (21:22)
[2022-11-17] MEDS: oxyCODONE HCL IR 5 MG TAB (IMMEDIATE RELEASE) PO PRN (00:17)
[2022-11-17] MEDS: ACETAMINOPHEN 325 MG TAB PO PRN (00:17)
[2022-11-17] MEDS: LEVOTHYROXINE SODIUM 200 MCG TABLET PO SCH (05:55)
[2022-11-17] MEDS: LEVOTHYROXINE SODIUM 25 MCG TABLET PO SCH (05:55)
[2022-11-17] MEDS: TORSEMIDE 20 MG TAB PO SCH (05:55)
[2022-11-17] MEDS: PANTOprazole 40 MG TAB PO SCH (05:55)
[2022-11-17] MEDS: ALBUT/IPRATROP 3MG/0.5MG NEB 3 ML VIAL NEB PRN ×2 (06:59→14:45)
[2022-11-17] MEDS ORDERED: BUPIVACAINE 0.25% 30 ML VIAL ONE (07:05)
[2022-11-17] MEDS ORDERED: LIDOCAINE 1% LOCAL 20 ML VIAL ONE (07:05)
[2022-11-17] MEDS ORDERED: VANCOMYCIN HCL 1000MG/20ML VIAL ONE (07:05)
[2022-11-17] MEDS ORDERED: WATER, STERILE FOR INJ 10 ML VIAL ONE (07:05)
[2022-11-17 08:09] LABS: Basophils # (auto) 0.07 K/uL (0-0.2); Basophils % (auto) 0.7 %; Eosinophils # (auto) 0.32 K/uL (0-0.50); Eosinophils % (auto) 3.3 %; Hematocrit (blood only) 37.5 % (34.1-44.9); Hemoglobin 11.5 g/dl (12.0-16.0); Immature Granulocytes # (auto) 0.19 K/uL (0.00-0.02); Lymphocytes # (auto) 1.97 K/uL (1.2-3.4); Lymphocytes % (auto) 20.6 %; Mean Corpuscular Hemoglobin 28.3 pg (25.0-34.0); Mean Corpuscular Hgb Conc 30.7 g/dL (32.0-36.0); Mean Corpuscular Volume 92.1 fL (80.0-100.0); Mean Platelet Volume 9.3 fL (9.4-12.3); Monocytes # (auto) 0.76 K/uL (0.24-0.82); Monocytes % (auto) 7.9 %; Neutrophils # (auto) 6.27 K/uL (1.4-6.5); Neutrophils % (auto) 65.5 %; Platelet Count 234 K/uL (130-400); RDW Coefficient of Variation 14.6 % (11.5-14.5); Red Blood Count 4.07 M/uL (3.93-5.22); White Blood Count 9.58 K/ul (4.8-10.8)
[2022-11-17 08:58] LABS: Albumin Globulin Ratio 1.1 (0.9-2); Albumin Level 3.5 gm/dl (3.4-5.0); Bilirubin,Total 0.4 mg/dl (0.2-1.0); Calcium 8.8 mg/dl (8.5-10.1); Creatinine Clr Calc Pharmacy 47.5 ml/min; Est GFR (African American) 36.6 ml/min; Est GFR (Non-African American) 31.6 ml/min; Globulin 3.2 gm/dl (2.5-4.0); Magnesium 2.2 mg/dl (1.7-2.4); Potassium 3.8 mmol/L (3.5-5.1); Total Protein 6.7 gm/dl (6.0-8.3)
[2022-11-17] MEDS: INSULIN, Rapid-Acting PUMP SCH ×4 (09:15→21:04)
[2022-11-17] MEDS: ASPIRIN 81 MG ECTAB PO SCH (09:16)
[2022-11-17] MEDS: AZITHROMYCIN 250 MG TAB PO SCH (09:16)
[2022-11-17] MEDS: buPROPion SR 100 MG TABCR PO SCH ×2 (09:17→21:02)
[2022-11-17] MEDS: EMPAGLIFLOZIN 10 MG TAB PO SCH (09:18)
[2022-11-17] MEDS: DOCUSATE SODIUM 100 MG CAP PO SCH ×2 (09:18→21:01)
[2022-11-17] MEDS: ENOXAPARIN INJ 40 MG/0.4 ML SYR SQ SCH (09:19)
[2022-11-17] MEDS: FOLIC ACID 1 MG TAB PO SCH (09:19)
[2022-11-17] MEDS: MAGNESIUM OXIDE 400 MG TAB PO SCH (09:20)
[2022-11-17] MEDS: ISOSORBIDE MONO EXTENDED REL 30 MG TABCR PO SCH (09:20)
[2022-11-17] MEDS: SPIRONOLACTONE 25 MG TAB PO SCH (09:21)
[2022-11-17] MEDS: MULTIVITAMIN TAB PO SCH (09:21)
[2022-11-17] MEDS: TOPIRAMATE 100 MG TAB PO SCH ×2 (09:23→21:02)
[2022-11-17] MEDS: METOPROLOL TARTRATE 25 MG TAB PO SCH ×2 (09:25→21:00)
[2022-11-17] MEDS: TORSEMIDE 10 MG TAB PO PRN (11:35)
--- NOTE | 2022-11-17 19:29 | Hospitalist Progress Note ---
Date of Service November 17, 2022 Assessment & Plan (1) SOB (shortness of breath): Plan: Acute on Chronic related to COPD, OHS, RASHAAD, CHF. Now resolved and back to baseline. Continue prn Duonebs and inhalers. Continue daily torsemide and prn torsemide in afternoon for weight gain-gave an extra dose today Now at baseline and awaiting home health arrangements. (2) Chronic diastolic congestive heart failure: Plan: Acute on chronic combined systolic and diastolic CHF. Most recent ejection fraction 45%. Now back to baseline. Received some IV diuresis early on. Continue torsemide 20 mg daily and prn dose in the afternoon-for weight gain over 2 pounds. -Continue spironolactone, metoprolol, isosorbide mononitrate, ASA, atorvastatin. Limit salt intake. -follow BMP q2-3 weeks-scrap crusher stable at 1.6 on 11/17 (3) Atypical chest pain: Plan: related to acute HFpEF as above. Resolved. No evidence of acute coronary syndrome. (4) Weakness: Plan: Related to morbid obesity and chronic R femur fx with nonunion. On oxycodone as needed and Tylenol. 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 Continue PT/OT. Pain control measures Increased dose of oxycodone to 10mg for pain scale -10 and keep 5mg for scale 4-7-this is helping (6) Hypothyroidism (acquired): Plan: Continue Levothyroxine, recent increased from 200mcg daily to 225mcg in mid Oct for elevated TSH. TSH repeated on 10/22 and is now normal at 1.1 (7) CKD stage 4 due to type 2 diabetes mellitus: Plan: (baseline creatinine 1.3-1.8). Monitor intake and output. Avoid nephrotoxins. S[employer] Sew[employer] Machine remains at baseline of 1.6 (8) GERD (gastroesophageal reflux disease): Plan: Treated with protonix (9) Insulin-requiring or dependent type II diabetes mellitus: Plan: ADA diet. Now on an home insulin pump. Continue Jardiance. Hemoglobin A1c on 10/22 down to 7.2%. f/u with Endocrinology after discharge. (10) Anxiety: Plan: Stable on bupropion seen by Psychiatry here for passive suicidal thoughts mentioned to her daughter on phone not suicidal, appreciate Psych consult (11) Morbid obesity with BMI of 60.0-69.9, adult: Plan: Markedly elevated BMI. Weight loss medication- 11/14-patient does not want to discuss at this time. Does have a primary care physician who she is not seen in almost a year because of her rehab facility stays. Urged to broach the subject with her primary care physician because they are an excellent weight loss medications in the market and some of them antidiabetic drugs Plan Anticipate eventual discharge to home with assistance when arrangements are finalized. Case management is having difficulty finding home care personnel for 90 hours of care per week Admission and Anticipated Discharge Date Admission Date: October 01, 2022 Subjective Pt had weight up today from yesterday and was given extra torsemide this afternoon, making plenty of urine. Feels tired this evening. No other concerns. The extra dose of oxycodone really helped her thigh pain last evening. Review of Systems Review of Systems: All systems reviewed & are unremarkable except as noted in HPI & below Physical Exam Constitutional: WD/WN, vitals as above Eyes: + anicteric sclerae Neck: trachea midline, no thyromegaly + abnormal visual inspection (trach in place) Respiratory: normal respiratory effort, lungs clear to auscultation normal respiratory effort Cardiovascular: RRR, no murmur, no edema Gastrointestinal (Abdomen): normal bowel sounds, soft, nontender, no hepatosplenomegaly Musculoskeletal: Extremities: extremities normal to inspection; no cyanosis and no clubbing Skin: no rashes, warm and dry Neurologic: moves all extremities and awake; no focal motor deficits Psychiatric: A+Ox3, euthymic affect Lymphatic: no lymphedema Results & Data Results & Data ([facility]) Vital Signs (Past 12 Hours) Vital Signs Temp Pulse Pulse Resp BP Pulse Ox O2 Del Method 11/17/22 16:20 19 94 Room Air 11/17/22 15:27 36.9 C 79 22 122/73 93 Room Air 11/17/22 14:45 76 18 96 Room Air 11/17/22 07:56 Room Air 11/17/22 09:20 78 111/61 Laboratory Results 11/17/22 11/17/22 11/17/22 Range/Units 16:59 11:46 07:37 WBC (4.8-10.8) K/ul RBC (3.93-5.22) M/uL Hgb (12.0-16.0) g/dl Hct (34.1-44.9) % MCV (80.0-100.0) fL MCH (25.0-34.0) pg MCHC (32.0-36.0) g/dL RDW Std Deviation (36.4-46.3) fL RDW Coeff of Amee (11.5-14.5) % Plt Count (130-400) K/uL MPV (9.4-12.3) fL Immature Gran % (Auto) % Neut % (Auto) % Lymph % (Auto) % [place] % (Auto) % Eos % (Auto) % Baso % (Auto) % Neut # (Auto) (1.4-6.5) K/uL Lymph # (Auto) (1.2-3.4) K/uL [place] # (Auto) (0.24-0.82) K/uL Eos # (Auto) (0-0.50) K/uL Baso # (Auto) (0-0.2) K/uL Immature Gran # (Auto) (0.00-0.02) K/uL Sodium 140 (136-145) mmol/L Potassium 3.8 (3.5-5.1) mmol/L Chloride 107 (98-107) mmol/L Carbon Dioxide 27 (21-32) mmol/L Anion Gap 6 (3-11) BUN 30 H (6-23) mg/dl Creatinine 1.67 H (0.6-1.2) mg/dl Est Cr Clr Drug Dosing 47.5 ml/min Est GFR ( Amer) 36.6 ml/min Est GFR (Non-Af Amer) 31.6 ml/min BUN/Creatinine Ratio 18.0 (10-20) Glucose 100 H (70-99(Fasting)) mg/dl POC Glucose 173 H 174 H (70-99) mg/dl Calcium 8.8 (8.5-10.1) mg/dl Magnesium 2.2 (1.7-2.4) mg/dl Total Bilirubin 0.4 (0.2-1.0) mg/dl AST 16 (13-39) U/L ALT 15 (7-52) U/L Alkaline Phosphatase 73 (34-104) U/L Total Protein 6.7 (6.0-8.3) gm/dl Albumin 3.5 (3.4-5.0) gm/dl Globulin 3.2 (2.5-4.0) gm/dl Albumin/Globulin Ratio 1.1 (0.9-2) 11/17/22 11/16/22 Range/Units 07:37 20:27 WBC 9.58 (4.8-10.8) K/ul RBC 4.07 (3.93-5.22) M/uL Hgb 11.5 L (12.0-16.0) g/dl Hct 37.5 (34.1-44.9) % MCV 92.1 (80.0-100.0) fL MCH 28.3 (25.0-34.0) pg MCHC 30.7 L (32.0-36.0) g/dL RDW Std Deviation 49.0 H (36.4-46.3) fL RDW Coeff of Amee 14.6 H (11.5-14.5) % Plt Count 234 (130-400) K/uL MPV 9.3 L (9.4-12.3) fL Immature Gran % (Auto) 2.0 % Neut % (Auto) 65.5 % Lymph % (Auto) 20.6 % [place] % (Auto) 7.9 % Eos % (Auto) 3.3 % Baso % (Auto) 0.7 % Neut # (Auto) 6.27 (1.4-6.5) K/uL Lymph # (Auto) 1.97 (1.2-3.4) K/uL [place] # (Auto) 0.76 (0.24-0.82) K/uL Eos # (Auto) 0.32 (0-0.50) K/uL Baso # (Auto) 0.07 (0-0.2) K/uL Immature Gran # (Auto) 0.19 H (0.00-0.02) K/uL Sodium (136-145) mmol/L Potassium (3.5-5.1) mmol/L Chloride (98-107) mmol/L Carbon Dioxide (21-32) mmol/L Anion Gap (3-11) BUN (6-23) mg/dl Creatinine (0.6-1.2) mg/dl Est Cr Clr Drug Dosing ml/min Est GFR ( Amer) ml/min Est GFR (Non-Af Amer) ml/min BUN/Creatinine Ratio (10-20) Glucose (70-99(Fasting)) mg/dl POC Glucose 166 H (70-99) mg/dl Calcium (8.5-10.1) mg/dl Magnesium (1.7-2.4) mg/dl Total Bilirubin (0.2-1.0) mg/dl AST (13-39) U/L ALT (7-52) U/L Alkaline Phosphatase (34-104) U/L Total Protein (6.0-8.3) gm/dl Albumin (3.4-5.0) gm/dl Globulin (2.5-4.0) gm/dl Albumin/Globulin Ratio (0.9-2) PG Care Time/CCT Total # of Minutes Spent Total Time Spent with Patient: Total time spent is greater than 50% in coordination of care (as documented) at patient's floor/unit and/or counseling patient: Coding Level of Care Code 29443 Subseq Hosp Care Lvl 1 Diagnoses SOB (shortness of breath) R06.02 Chronic diastolic congestive heart failure I50.32 Atypical chest pain R07.89 Weakness R53.1 Fracture of distal end of right femur S72.401A Hypothyroidism (acquired) E03.9 CKD stage 4 due to type 2 diabetes mellitus E11.22; N18.4 GERD (gastroesophageal reflux disease) K21.9 Insulin-requiring or dependent type II diabetes mellitus E11.9; Z79.4 Anxiety F41.9 Morbid obesity with BMI of 60.0-69.9, adult E66.01; Z68.44
[2022-11-17] MEDS: ATORVASTATIN 40 MG TAB PO SCH (21:00)
[2022-11-18] MEDS: LEVOTHYROXINE SODIUM 25 MCG TABLET PO SCH (06:34)
[2022-11-18] MEDS: PANTOprazole 40 MG TAB PO SCH (06:34)
[2022-11-18] MEDS: LEVOTHYROXINE SODIUM 200 MCG TABLET PO SCH (06:34)
[2022-11-18] MEDS: TORSEMIDE 10 MG TAB PO PRN (06:34)
[2022-11-18] MEDS: TORSEMIDE 20 MG TAB PO SCH (06:35)
[2022-11-18] MEDS: ALBUT/IPRATROP 3MG/0.5MG NEB 3 ML VIAL NEB PRN ×2 (07:34→15:05)
[2022-11-18] MEDS: SPIRONOLACTONE 25 MG TAB PO SCH (09:19)
[2022-11-18] MEDS: INSULIN, Rapid-Acting PUMP SCH ×4 (09:19→21:11)
[2022-11-18] MEDS: ENOXAPARIN INJ 40 MG/0.4 ML SYR SQ SCH (09:19)
[2022-11-18] MEDS: DOCUSATE SODIUM 100 MG CAP PO SCH ×2 (09:20→20:35)
[2022-11-18] MEDS: METOPROLOL TARTRATE 25 MG TAB PO SCH ×2 (09:20→20:39)
[2022-11-18] MEDS: buPROPion SR 100 MG TABCR PO SCH ×2 (09:21→20:34)
[2022-11-18] MEDS: ASPIRIN 81 MG ECTAB PO SCH (09:21)
[2022-11-18] MEDS: FOLIC ACID 1 MG TAB PO SCH (09:21)
[2022-11-18] MEDS: EMPAGLIFLOZIN 10 MG TAB PO SCH (09:22)
[2022-11-18] MEDS: TOPIRAMATE 100 MG TAB PO SCH ×2 (09:22→20:35)
[2022-11-18] MEDS: MAGNESIUM OXIDE 400 MG TAB PO SCH (09:22)
[2022-11-18] MEDS: MULTIVITAMIN TAB PO SCH (09:22)
[2022-11-18] MEDS: ISOSORBIDE MONO EXTENDED REL 30 MG TABCR PO SCH (09:23)
[2022-11-18] MEDS: oxyCODONE HCL IR 5 MG TAB (IMMEDIATE RELEASE) PO PRN (09:33)
--- NOTE | 2022-11-18 16:36 | Hospitalist Progress Note ---
Date of Service November 18, 2022 Assessment & Plan (1) SOB (shortness of breath): Plan: Acute on Chronic related to COPD, OHS, RASHAAD, CHF. Now resolved and back to baseline. Continue prn Duonebs and inhalers. Continue daily torsemide and prn torsemide in afternoon for weight gain Now at baseline and awaiting home health arrangements. (2) Chronic diastolic congestive heart failure: Plan: Acute on chronic combined systolic and diastolic CHF. Most recent ejection fraction 45%. Now back to baseline. Received some IV diuresis early on. Continue torsemide 20 mg daily and prn dose in the afternoon-for weight gain over 2 pounds. -Continue spironolactone, metoprolol, isosorbide mononitrate, ASA, atorvastatin. Limit salt intake. -follow BMP q2-3 weeks-occupational therapist assistants stable at 1.6 on 11/17 (3) Atypical chest pain: Plan: related to acute HFpEF as above. Resolved. No evidence of acute coronary syndrome. (4) Weakness: Plan: Related to morbid obesity and chronic R femur fx with nonunion. On oxycodone as needed and Tylenol. 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 Continue PT/OT. Pain control measures Increased dose of oxycodone to 10mg for pain scale -10 and keep 5mg for scale 4-7-this is helping (6) Hypothyroidism (acquired): Plan: Continue Levothyroxine, recent increased from 200mcg daily to 225mcg in mid Oct for elevated TSH. TSH repeated on 10/22 and is now normal at 1.1 (7) CKD stage 4 due to type 2 diabetes mellitus: Plan: (baseline creatinine 1.3-1.8). Monitor intake and output. Avoid nephrotoxins. [place] remains at baseline of 1.6 (8) GERD (gastroesophageal reflux disease): Plan: Treated with protonix (9) Insulin-requiring or dependent type II diabetes mellitus: Plan: ADA diet. Now on an home insulin pump. Continue Jardiance. Hemoglobin A1c on 10/22 down to 7.2%. f/u with Endocrinology after discharge. (10) Anxiety: Plan: Stable on bupropion seen by Psychiatry here for passive suicidal thoughts mentioned to her daughter on phone not suicidal, appreciate Psych consult (11) Morbid obesity with BMI of 60.0-69.9, adult: Plan: Markedly elevated BMI. Weight loss medication- 11/14-patient does not want to discuss at this time. Does have a primary care physician who she is not seen in almost a year because of her rehab facility stays. Urged to broach the subject with her primary care physician because they are an excellent weight loss medications in the market and some of them antidiabetic drugs Plan Anticipate eventual discharge to home with assistance when arrangements are finalized. Case management is having difficulty finding home care personnel for 90 hours of care per week. Pt and PT now feel that she could get by with 45 horus a week instead-d/w CM who will try to get a hold of her upper caser through her insurance Admission and Anticipated Discharge Date Admission Date: October 01, 2022 Subjective Feeling well. Is OOB to chair and happy. Wants to know if she can have a reduced number of hours of care because she is becoming more independent-able to get to bedside commode with walker independently. No SOB. Review of Systems Review of Systems: All systems reviewed & are unremarkable except as noted in HPI & below Physical Exam Constitutional: WD/WN, vitals as above Eyes: + anicteric sclerae Neck: trachea midline, no thyromegaly + abnormal visual inspection (trach in place) Respiratory: normal respiratory effort, lungs clear to auscultation Cardiovascular: RRR, no murmur, no edema Gastrointestinal (Abdomen): normal bowel sounds, soft, nontender, no hepatosplenomegaly Musculoskeletal: Extremities: extremities normal to inspection; no cyanosis and no clubbing Skin: no rashes, warm and dry Neurologic: moves all extremities and awake; no focal motor deficits Psychiatric: A+Ox3, euthymic affect Lymphatic: no lymphedema Results & Data Results & Data ([facility]) Vital Signs (Past 12 Hours) Vital Signs Temp Pulse Pulse Pulse Resp BP Pulse Ox 11/18/22 15:00 36.8 C 75 20 129/71 94 11/18/22 15:05 80 16 94 11/18/22 09:20 11/18/22 09:16 85 133/77 93 11/18/22 07:30 37 C 79 16 134/74 95 11/18/22 07:35 77 18 93 O2 Del Method 11/18/22 15:00 Room Air 11/18/22 15:05 Room Air 12/29/22 09:20 Room Air 11/18/22 09:16 Room Air 11/18/22 07:30 Room Air 11/18/22 07:35 Room Air PG Care Time/CCT Total # of Minutes Spent Total Time Spent with Patient: Total time spent is greater than 50% in coordination of care (as documented) at patient's floor/unit and/or counseling patient: Coding Level of Care Code 58520 Subseq Hosp Care Lvl 1 Diagnoses SOB (shortness of breath) R06.02 Chronic diastolic congestive heart failure I50.32 Atypical chest pain R07.89 Weakness R53.1 Fracture of distal end of right femur S72.401A Hypothyroidism (acquired) E03.9 CKD stage 4 due to type 2 diabetes mellitus E11.22; N18.4 GERD (gastroesophageal reflux disease) K21.9 Insulin-requiring or dependent type II diabetes mellitus E11.9; Z79.4 Anxiety F41.9 Morbid obesity with BMI of 60.0-69.9, adult E66.01; Z68.44
[2022-11-18] MEDS: ATORVASTATIN 40 MG TAB PO SCH (20:34)
[2022-11-19] MEDS: oxyCODONE HCL IR 5 MG TAB (IMMEDIATE RELEASE) PO PRN (03:21)
[2022-11-19] MEDS: LEVOTHYROXINE SODIUM 25 MCG TABLET PO SCH (06:29)
[2022-11-19] MEDS: PANTOprazole 40 MG TAB PO SCH (06:29)
[2022-11-19] MEDS: LEVOTHYROXINE SODIUM 200 MCG TABLET PO SCH (06:29)
[2022-11-19] MEDS: TORSEMIDE 20 MG TAB PO SCH (06:30)
[2022-11-19] MEDS: ALBUT/IPRATROP 3MG/0.5MG NEB 3 ML VIAL NEB PRN (08:00)
[2022-11-19] MEDS: DOCUSATE SODIUM 100 MG CAP PO SCH ×2 (10:06→21:32)
[2022-11-19] MEDS: METOPROLOL TARTRATE 25 MG TAB PO SCH ×2 (10:07→21:30)
[2022-11-19] MEDS: SPIRONOLACTONE 25 MG TAB PO SCH (10:10)
[2022-11-19] MEDS: TOPIRAMATE 100 MG TAB PO SCH ×2 (10:10→21:30)
[2022-11-19] MEDS: EMPAGLIFLOZIN 10 MG TAB PO SCH (10:10)
[2022-11-19] MEDS: MULTIVITAMIN TAB PO SCH (10:10)
[2022-11-19] MEDS: buPROPion SR 100 MG TABCR PO SCH ×2 (10:11→21:31)
[2022-11-19] MEDS: ASPIRIN 81 MG ECTAB PO SCH (10:11)
[2022-11-19] MEDS: FOLIC ACID 1 MG TAB PO SCH (10:11)
[2022-11-19] MEDS: ISOSORBIDE MONO EXTENDED REL 30 MG TABCR PO SCH (10:11)
[2022-11-19] MEDS: AZITHROMYCIN 250 MG TAB PO SCH (10:11)
[2022-11-19] MEDS: MAGNESIUM OXIDE 400 MG TAB PO SCH (10:12)
[2022-11-19] MEDS: ENOXAPARIN INJ 40 MG/0.4 ML SYR SQ SCH (10:12)
[2022-11-19] MEDS: INSULIN, Rapid-Acting PUMP SCH ×4 (10:59→21:00)
[2022-11-19] MEDS: ATORVASTATIN 40 MG TAB PO SCH (21:32)
--- NOTE | 2022-11-19 21:41 | Hospitalist Progress Note ---
Date of Service November 19, 2022 Assessment & Plan (1) SOB (shortness of breath): Plan: Acute on Chronic related to COPD, OHS, RASHAAD, CHF. Now resolved and back to baseline. Continue prn Duonebs and inhalers. Continue daily torsemide and prn torsemide in afternoon for weight gain Now at baseline and awaiting home health arrangements. (2) Chronic diastolic congestive heart failure: Plan: Acute on chronic combined systolic and diastolic CHF. Most recent ejection fraction 45%. Now back to baseline. Received some IV diuresis early on. Continue torsemide 20 mg daily and prn dose in the afternoon-for weight gain over 2 pounds. -Continue spironolactone, metoprolol, isosorbide mononitrate, ASA, atorvastatin. Limit salt intake. -follow BMP q2-3 weeks-squad leader stable at 1.6 on 11/17 (3) Atypical chest pain: Plan: related to acute HFpEF as above. Resolved. No evidence of acute coronary syndrome. (4) Weakness: Plan: Related to morbid obesity and chronic R femur fx with nonunion. On oxycodone as needed and Tylenol. 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 Continue PT/OT. Pain control measures Increased dose of oxycodone to 10mg for pain scale -10 and keep 5mg for scale 4-7-this is helping (6) Hypothyroidism (acquired): Plan: Continue Levothyroxine, recent increased from 200mcg daily to 225mcg in mid Oct for elevated TSH. TSH repeated on 10/22 and is now normal at 1.1 (7) CKD stage 4 due to type 2 diabetes mellitus: Plan: (baseline creatinine 1.3-1.8). Monitor intake and output. Avoid nephrotoxins. Bulk Plant Supervisor remains at baseline of 1.6 (8) GERD (gastroesophageal reflux disease): Plan: Treated with protonix (9) Insulin-requiring or dependent type II diabetes mellitus: Plan: ADA diet. Now on an home insulin pump. Continue Jardiance. Hemoglobin A1c on 10/22 down to 7.2%. f/u with Endocrinology after discharge. (10) Anxiety: Plan: Stable on bupropion seen by Psychiatry here for passive suicidal thoughts mentioned to her daughter on phone not suicidal, appreciate Psych consult (11) Morbid obesity with BMI of 60.0-69.9, adult: Plan: Markedly elevated BMI. Weight loss medication- 11/14-patient does not want to discuss at this time. Does have a primary care physician who she is not seen in almost a year because of her rehab facility stays. Urged to broach the subject with her primary care physician because they are an excellent weight loss medications in the market and some of them antidiabetic drugs Plan Anticipate eventual discharge to home with assistance when arrangements are finalized. Case management is having difficulty finding home care personnel for 90 hours of care per week. Pt and PT now feel that she could get by with 45 horus a week instead-d/w CM who will try to get a hold of her case management associate through her insurance-multiple calls have been made to the linseed oil boiler by both the patient and our caser with no response Admission and Anticipated Discharge Date Admission Date: October 01, 2022 Subjective Patient has no physical complaints. She is eating her meal when I saw her. Simply frustrated in general by her entire situation. Review of Systems Review of Systems: All systems reviewed & are unremarkable except as noted in HPI & below Physical Exam Constitutional: WD/WN, vitals as above Eyes: + anicteric sclerae Neck: trachea midline, no thyromegaly + abnormal visual inspection (trach in place) Respiratory: normal respiratory effort Musculoskeletal: Extremities: extremities normal to inspection; no cyanosis and no clubbing Skin: no rashes, warm and dry Neurologic: moves all extremities and awake; no focal motor deficits Psychiatric: A+Ox3, euthymic affect Results & Data Results & Data ([facility]) Vital Signs (Past 12 Hours) Vital Signs Temp Pulse Resp BP Pulse Ox O2 Del Method 11/19/22 16:00 36.5 C 56 L 18 122/69 95 Room Air PG Care Time/CCT Total # of Minutes Spent Total Time Spent with Patient: Total time spent is greater than 50% in coordination of care (as documented) at patient's floor/unit and/or counseling patient: Coding Level of Care Code 49617 Subseq Hosp Care Lvl 1 Diagnoses SOB (shortness of breath) R06.02 Chronic diastolic congestive heart failure I50.32 Atypical chest pain R07.89 Weakness R53.1 Fracture of distal end of right femur S72.401A Hypothyroidism (acquired) E03.9 CKD stage 4 due to type 2 diabetes mellitus E11.22; N18.4 GERD (gastroesophageal reflux disease) K21.9 Insulin-requiring or dependent type II diabetes mellitus E11.9; Z79.4 Anxiety F41.9 Morbid obesity with BMI of 60.0-69.9, adult E66.01; Z68.44
[2022-11-20] MEDS: ACETAMINOPHEN 325 MG TAB PO PRN ×2 (05:51→16:46)
[2022-11-20] MEDS: LEVOTHYROXINE SODIUM 25 MCG TABLET PO SCH (05:52)
[2022-11-20] MEDS: LEVOTHYROXINE SODIUM 200 MCG TABLET PO SCH (05:52)
[2022-11-20] MEDS: TORSEMIDE 20 MG TAB PO SCH (05:52)
[2022-11-20] MEDS: PANTOprazole 40 MG TAB PO SCH (05:52)
[2022-11-20] MEDS: oxyCODONE HCL IR 5 MG TAB (IMMEDIATE RELEASE) PO PRN ×2 (05:52→16:46)
[2022-11-20] MEDS: MULTIVITAMIN TAB PO SCH (08:07)
[2022-11-20] MEDS: buPROPion SR 100 MG TABCR PO SCH ×2 (08:07→20:45)
[2022-11-20] MEDS: FOLIC ACID 1 MG TAB PO SCH (08:07)
[2022-11-20] MEDS: ISOSORBIDE MONO EXTENDED REL 30 MG TABCR PO SCH (08:07)
[2022-11-20] MEDS: TOPIRAMATE 100 MG TAB PO SCH ×2 (08:08→20:47)
[2022-11-20] MEDS: SPIRONOLACTONE 25 MG TAB PO SCH (08:08)
[2022-11-20] MEDS: EMPAGLIFLOZIN 10 MG TAB PO SCH (08:08)
[2022-11-20] MEDS: DOCUSATE SODIUM 100 MG CAP PO SCH ×2 (08:08→20:47)
[2022-11-20] MEDS: ASPIRIN 81 MG ECTAB PO SCH (08:08)
[2022-11-20] MEDS: METOPROLOL TARTRATE 25 MG TAB PO SCH ×2 (08:08→20:46)
[2022-11-20] MEDS: ENOXAPARIN INJ 40 MG/0.4 ML SYR SQ SCH (08:09)
[2022-11-20] MEDS: MAGNESIUM OXIDE 400 MG TAB PO SCH (08:09)
[2022-11-20] MEDS: INSULIN, Rapid-Acting PUMP SCH ×4 (10:01→21:27)
--- NOTE | 2022-11-20 10:55 | Hospitalist Progress Note ---
Date of Service November 20, 2022 Assessment & Plan (1) SOB (shortness of breath): Plan: Acute on Chronic related to COPD, OHS, RASHAAD, CHF. Now resolved and back to baseline. Continue prn Duonebs and inhalers. Continue daily torsemide and prn torsemide in afternoon for weight gain Now at baseline and awaiting home health arrangements. (2) Chronic diastolic congestive heart failure: Plan: Acute on chronic combined systolic and diastolic CHF. Most recent ejection fraction 45%. Now back to baseline. Received some IV diuresis early on. Continue torsemide 20 mg daily and prn dose in the afternoon-for weight gain over 2 pounds. -Continue spironolactone, metoprolol, isosorbide mononitrate, ASA, atorvastatin. Limit salt intake. -follow BMP q2-3 weeks-pharmacy picking tech stable at 1.6 on 11/17 (3) Atypical chest pain: Plan: related to acute HFpEF as above. Resolved. No evidence of acute coronary syndrome. (4) Weakness: Plan: Related to morbid obesity and chronic R femur fx with nonunion. On oxycodone as needed and Tylenol. 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 Continue PT/OT. Pain control measures Increased dose of oxycodone to 10mg for pain scale -10 and keep 5mg for scale 4-7-this is helping (6) Hypothyroidism (acquired): Plan: Continue Levothyroxine, recent increased from 200mcg daily to 225mcg in mid Oct for elevated TSH. TSH repeated on 10/22 and is now normal at 1.1 (7) CKD stage 4 due to type 2 diabetes mellitus: Plan: (baseline creatinine 1.3-1.8). Monitor intake and output. Avoid nephrotoxins. Fabric Normalizer remains at baseline of 1.6 (8) GERD (gastroesophageal reflux disease): Plan: Treated with protonix (9) Insulin-requiring or dependent type II diabetes mellitus: Plan: ADA diet. Now on an home insulin pump. Continue Jardiance. Hemoglobin A1c on 10/22 down to 7.2%. f/u with Endocrinology after discharge. (10) Anxiety: Plan: Stable on bupropion seen by Psychiatry here for passive suicidal thoughts mentioned to her daughter on phone not suicidal, appreciate Psych consult (11) Morbid obesity with BMI of 60.0-69.9, adult: Plan: Markedly elevated BMI. Weight loss medication- 11/14-patient does not want to discuss at this time. Does have a primary care physician who she is not seen in almost a year because of her rehab facility stays. Urged to broach the subject with her primary care physician because they are an excellent weight loss medications in the market and some of them antidiabetic drugs Plan Anticipate eventual discharge to home with assistance when arrangements are finalized. Case management is having difficulty finding home care personnel for 90 hours of care per week. Pt and PT now feel that she could get by with 45 horus a week instead-d/w CM who will try to get a hold of her rn case manager through her insurance-multiple calls have been made to the founder / ceo by both the patient and our rn case manager with no response Admission and Anticipated Discharge Date Admission Date: October 01, 2022 Subjective No complaints. Moving bowels. OOB to chair daily. Review of Systems Review of Systems: All systems reviewed & are unremarkable except as noted in HPI & below Physical Exam Constitutional: WD/WN, vitals as above Eyes: + anicteric sclerae Neck: trachea midline, no thyromegaly + abnormal visual inspection (trach in place) Respiratory: normal respiratory effort, lungs clear to auscultation normal respiratory effort Cardiovascular: RRR, no murmur, no edema Gastrointestinal (Abdomen): normal bowel sounds, soft, nontender, no hepatosplenomegaly Musculoskeletal: Extremities: extremities normal to inspection; no cyanosis and no clubbing Skin: no rashes, warm and dry Neurologic: moves all extremities and awake; no focal motor deficits Psychiatric: A+Ox3, euthymic affect Lymphatic: no lymphedema Results & Data Results & Data ([facility]) Vital Signs (Past 12 Hours) Vital Signs Temp Pulse Resp BP Pulse Ox O2 Del Method O2 Flow Rate 11/20/22 08:14 18 Room Air 11/20/22 07:26 36.6 C 73 18 101/62 95 Room Air, Trach Collar 11/19/22 23:51 88 18 94 Trach Collar 6 FiO2 11/20/22 08:14 11/20/22 07:26 11/19/22 23:51 28 PG Care Time/CCT Total # of Minutes Spent Total Time Spent with Patient: Total time spent is greater than 50% in coordination of care (as documented) at patient's floor/unit and/or counseling patient: Coding Level of Care Code 94257 Subseq Hosp Care Lvl 1 Diagnoses SOB (shortness of breath) R06.02 Chronic diastolic congestive heart failure I50.32 Atypical chest pain R07.89 Weakness R53.1 Fracture of distal end of right femur S72.401A Hypothyroidism (acquired) E03.9 CKD stage 4 due to type 2 diabetes mellitus E11.22; N18.4 GERD (gastroesophageal reflux disease) K21.9 Insulin-requiring or dependent type II diabetes mellitus E11.9; Z79.4 Anxiety F41.9 Morbid obesity with BMI of 60.0-69.9, adult E66.01; Z68.44
[2022-11-20] MEDS: ALBUT/IPRATROP 3MG/0.5MG NEB 3 ML VIAL NEB PRN (15:26)
[2022-11-20] MEDS: ATORVASTATIN 40 MG TAB PO SCH (20:46)
[2022-11-21] MEDS: ACETAMINOPHEN 325 MG TAB PO PRN (05:14)
[2022-11-21] MEDS: LEVOTHYROXINE SODIUM 25 MCG TABLET PO SCH (05:15)
[2022-11-21] MEDS: oxyCODONE HCL IR 5 MG TAB (IMMEDIATE RELEASE) PO PRN ×2 (05:15→20:54)
[2022-11-21] MEDS: PANTOprazole 40 MG TAB PO SCH (05:15)
[2022-11-21] MEDS: TORSEMIDE 20 MG TAB PO SCH (05:16)
[2022-11-21] MEDS: LEVOTHYROXINE SODIUM 200 MCG TABLET PO SCH (05:16)
[2022-11-21] MEDS: ALBUT/IPRATROP 3MG/0.5MG NEB 3 ML VIAL NEB PRN ×2 (08:04→15:53)
[2022-11-21] MEDS: METOPROLOL TARTRATE 25 MG TAB PO SCH ×2 (08:25→20:46)
[2022-11-21] MEDS: DOCUSATE SODIUM 100 MG CAP PO SCH ×2 (08:25→20:47)
[2022-11-21] MEDS: TOPIRAMATE 100 MG TAB PO SCH ×2 (08:26→20:47)
[2022-11-21] MEDS: SPIRONOLACTONE 25 MG TAB PO SCH (08:26)
[2022-11-21] MEDS: FOLIC ACID 1 MG TAB PO SCH (08:26)
[2022-11-21] MEDS: MULTIVITAMIN TAB PO SCH (08:26)
[2022-11-21] MEDS: buPROPion SR 100 MG TABCR PO SCH ×2 (08:26→20:46)
[2022-11-21] MEDS: ISOSORBIDE MONO EXTENDED REL 30 MG TABCR PO SCH (08:26)
[2022-11-21] MEDS: EMPAGLIFLOZIN 10 MG TAB PO SCH (08:26)
[2022-11-21] MEDS: ENOXAPARIN INJ 40 MG/0.4 ML SYR SQ SCH (08:27)
[2022-11-21] MEDS: MAGNESIUM OXIDE 400 MG TAB PO SCH (08:27)
--- NOTE | 2022-11-21 08:51 | Hospitalist Progress Note ---
Date of Service November 21, 2022 Assessment & Plan (1) SOB (shortness of breath): Plan: Acute on Chronic related to COPD, OHS, RASHAAD, CHF. Now resolved and back to baseline. Continue prn Duonebs and inhalers. Continue daily torsemide and prn torsemide in afternoon for weight gain Now at baseline and awaiting home health arrangements. (2) Chronic diastolic congestive heart failure: Plan: Acute on chronic combined systolic and diastolic CHF. Most recent ejection fraction 45%. Now back to baseline. Received some IV diuresis early on. Continue torsemide 20 mg daily and prn dose in the afternoon-for weight gain over 2 pounds. -Continue spironolactone, metoprolol, isosorbide mononitrate, ASA, atorvastatin. Limit salt intake. -follow BMP q2-3 weeks-pig machine supervisor stable at 1.6 on 11/17 (3) Atypical chest pain: Plan: related to acute HFpEF as above. Resolved. No evidence of acute coronary syndrome. (4) Weakness: Plan: Related to morbid obesity and chronic R femur fx with nonunion. On oxycodone as needed and Tylenol. 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 Continue PT/OT. Pain control measures Increased dose of oxycodone to 10mg for pain scale -10 and keep 5mg for scale 4-7-this is helping (6) Hypothyroidism (acquired): Plan: Continue Levothyroxine, recent increased from 200mcg daily to 225mcg in mid Oct for elevated TSH. TSH repeated on 10/22 and is now normal at 1.1 (7) CKD stage 4 due to type 2 diabetes mellitus: Plan: (baseline creatinine 1.3-1.8). Monitor intake and output. Avoid nephrotoxins. Ski Instructor remains at baseline of 1.6 (8) GERD (gastroesophageal reflux disease): Plan: Treated with protonix (9) Insulin-requiring or dependent type II diabetes mellitus: Plan: ADA diet. Now on an home insulin pump. Continue Jardiance. Hemoglobin A1c on 10/22 down to 7.2%. f/u with Endocrinology after discharge. (10) Anxiety: Plan: Stable on bupropion seen by Psychiatry here for passive suicidal thoughts mentioned to her daughter on phone not suicidal, appreciate Psych consult (11) Morbid obesity with BMI of 60.0-69.9, adult: Plan: Markedly elevated BMI. Weight loss medication- 11/14-patient does not want to discuss at this time. Does have a primary care physician who she is not seen in almost a year because of her rehab facility stays. Urged to broach the subject with her primary care physician because they are an excellent weight loss medications in the market and some of them antidiabetic drugs Plan Anticipate eventual discharge to home with assistance when arrangements are finalized. Case management is having difficulty finding home care personnel for 90 hours of care per week. Pt and PT now feel that she could get by with 45 horus a week instead-d/w CM who will try to get a hold of her casework manager through her insurance-multiple calls have been made to the space systems operations superintendent by both the patient and our case briefer with no response Admission and Anticipated Discharge Date Admission Date: October 01, 2022 Supervising Physician Co-Signing Physician Notes The patient was seen and examined by me. Case discussed with KATIE Rea. Agree with assessment and plan Subjective eval this morning, doing well. up in chair, has been transferring herself to bedside commode and back w/ ass istance to hold the commode but otherwise doing much better. breathing stable she is hopeful to go home w/ reduced need for hours from nursing aides, CM to assist with such. Eating/drinking, moving her bowels. No acute concerns at this time. Questions/concerns addressed at this time. Review of Systems Review of Systems: All systems reviewed & are unremarkable except as noted in HPI & below Physical Exam Constitutional: WD/WN, vitals as above Eyes: + anicteric sclerae Neck: trachea midline, no thyromegaly + abnormal visual inspection (trach in place) Respiratory: normal respiratory effort, lungs clear to auscultation normal respiratory effort Cardiovascular: RRR, no murmur, no edema Gastrointestinal (Abdomen): normal bowel sounds, soft, nontender, no hepatosplenomegaly Musculoskeletal: Extremities: extremities normal to inspection; no cyanosis and no clubbing Skin: no rashes, warm and dry Neurologic: moves all extremities and awake; no focal motor deficits Psychiatric: A+Ox3, euthymic affect Lymphatic: no lymphedema Results & Data Results & Data ([facility]) Vital Signs (Past 12 Hours) Vital Signs Temp Pulse Resp BP Pulse Ox O2 Del Method 11/21/22 08:04 67 18 94 Room Air 11/21/22 07:30 36.5 C 72 18 118/67 93 Room Air, Trach Collar 11/20/22 22:42 36.8 C 88 18 112/68 93 Room Air PG Care Time/CCT Total # of Minutes Spent Total Time Spent with Patient: Total time spent is greater than 50% in coordination of care (as documented) at patient's floor/unit and/or counseling patient: Coding Level of Care Code 76156 Subseq Hosp Care Lvl 1 Diagnoses SOB (shortness of breath) R06.02 Chronic diastolic congestive heart failure I50.32 Atypical chest pain R07.89 Weakness R53.1 Fracture of distal end of right femur S72.401A Hypothyroidism (acquired) E03.9 CKD stage 4 due to type 2 diabetes mellitus E11.22; N18.4 GERD (gastroesophageal reflux disease) K21.9 Insulin-requiring or dependent type II diabetes mellitus E11.9; Z79.4 Anxiety F41.9 Morbid obesity with BMI of 60.0-69.9, adult E66.01; Z68.44
[2022-11-21] MEDS: ASPIRIN 81 MG ECTAB PO SCH (09:09)
[2022-11-21] MEDS: INSULIN, Rapid-Acting PUMP SCH ×4 (09:12→20:48)
[2022-11-21] MEDS: ATORVASTATIN 40 MG TAB PO SCH (20:44)
[2022-11-22] MEDS: LEVOTHYROXINE SODIUM 25 MCG TABLET PO SCH (06:42)
[2022-11-22] MEDS: LEVOTHYROXINE SODIUM 200 MCG TABLET PO SCH (06:42)
[2022-11-22] MEDS: PANTOprazole 40 MG TAB PO SCH (06:42)
[2022-11-22] MEDS: TORSEMIDE 20 MG TAB PO SCH (06:42)
[2022-11-22] MEDS: AZITHROMYCIN 250 MG TAB PO SCH (07:55)
[2022-11-22] MEDS: SPIRONOLACTONE 25 MG TAB PO SCH (07:55)
[2022-11-22] MEDS: buPROPion SR 100 MG TABCR PO SCH ×2 (07:55→20:37)
[2022-11-22] MEDS: TOPIRAMATE 100 MG TAB PO SCH ×2 (07:55→20:37)
[2022-11-22] MEDS: MULTIVITAMIN TAB PO SCH (07:55)
[2022-11-22] MEDS: ASPIRIN 81 MG ECTAB PO SCH (07:55)
[2022-11-22] MEDS: METOPROLOL TARTRATE 25 MG TAB PO SCH ×2 (07:55→20:38)
[2022-11-22] MEDS: FOLIC ACID 1 MG TAB PO SCH (07:55)
[2022-11-22] MEDS: ISOSORBIDE MONO EXTENDED REL 30 MG TABCR PO SCH (07:56)
[2022-11-22] MEDS: ENOXAPARIN INJ 40 MG/0.4 ML SYR SQ SCH (07:56)
[2022-11-22] MEDS: MAGNESIUM OXIDE 400 MG TAB PO SCH (07:56)
[2022-11-22] MEDS: DOCUSATE SODIUM 100 MG CAP PO SCH ×2 (07:56→20:37)
[2022-11-22] MEDS: EMPAGLIFLOZIN 10 MG TAB PO SCH (07:56)
[2022-11-22] MEDS: ALBUT/IPRATROP 3MG/0.5MG NEB 3 ML VIAL NEB PRN ×2 (08:21→16:20)
--- NOTE | 2022-11-22 08:34 | Hospitalist Progress Note ---
Date of Service November 22, 2022 Assessment & Plan (1) SOB (shortness of breath): Plan: Acute on Chronic related to COPD, OHS, RASHAAD, CHF. Now resolved and back to baseline. Continue prn Duonebs and inhalers. Continue daily torsemide and prn torsemide in afternoon for weight gain (dose for 1/2 to be given) Now at baseline and awaiting home health arrangements. (2) Chronic diastolic congestive heart failure: Plan: Acute on chronic combined systolic and diastolic CHF. Most recent ejection fraction 45%. Now back to baseline. Received some IV diuresis early on. Continue torsemide 20 mg daily and prn dose in the afternoon-for weight gain over 2 pounds. -Continue spironolactone, metoprolol, isosorbide mononitrate, ASA, atorvastatin. Limit salt intake. -follow BMP q2-3 weeks-camp assistant stable at 1.6 on 11/22 (3) Atypical chest pain: Plan: related to acute HFpEF as above. Resolved. No evidence of acute coronary syndrome. (4) Weakness: Plan: Related to morbid obesity and chronic R femur fx with nonunion. On oxycodone as needed and Tylenol. 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 Continue PT/OT. Pain control measures Increased dose of oxycodone to 10mg for pain scale -10 and keep 5mg for scale 4-7-this is helping (6) Hypothyroidism (acquired): Plan: Continue Levothyroxine, recent increased from 200mcg daily to 225mcg in mid Oct for elevated TSH. TSH repeated on 10/22 and is now normal at 1.1 (7) CKD stage 4 due to type 2 diabetes mellitus: Plan: (baseline creatinine 1.3-1.8). Monitor intake and output. Avoid nephrotoxins. Prep Manager remains at baseline of 1.6 (8) GERD (gastroesophageal reflux disease): Plan: Treated with protonix (9) Insulin-requiring or dependent type II diabetes mellitus: Plan: ADA diet. Now on an home insulin pump. Continue Jardiance. Hemoglobin A1c on 10/22 down to 7.2%. f/u with Endocrinology after discharge. (10) Anxiety: Plan: Stable on bupropion seen by Psychiatry here for passive suicidal thoughts mentioned to her daughter on phone not suicidal, appreciate Psych consult (11) Morbid obesity with BMI of 60.0-69.9, adult: Plan: Markedly elevated BMI. Weight loss medication- 11/14-patient does not want to discuss at this time. Does have a primary care physician who she is not seen in almost a year because of her rehab facility stays. Urged to broach the subject with her primary care physician because they are an excellent weight loss medications in the market and some of them antidiabetic drugs Plan Anticipate eventual discharge to home with assistance when arrangements are finalized. Case management is having difficulty finding home care personnel for 90 hours of care per week. Pt and PT now feel that she could get by with 45 horus a week instead-d/w ALEA who will try to get a hold of her human services case manager through her insurance-multiple calls have been made to the postal superintendent by both the patient and our protective services case worker with no response Admission and Anticipated Discharge Date Admission Date: October 01, 2022 Supervising Physician Co-Signing Physician Notes The patient was not seen by me. Chart reviewed. Case discussed with KATIE Rea. Agree with assessment and plan Subjective eval this morning, doing well. eating/drinking/moving bowels no issue awaiting response about dispo planning w/ aideALEA following no fever/chills/chest pain/shortness of breath to get her dose of torsemide today for weight gain but breathing stable/will monitor labs on repeat. questions/concerns addressed. in good spirits- her daughter to be visiting today. Review of Systems Review of Systems: All systems reviewed & are unremarkable except as noted in HPI & below Physical Exam Physical Exam: General: WD/morbidly obese female sitting up in chair, NAD, cleaning her trach HEENT: head normocephalic, thick neck, +metal trach, mmm Resp: diminished in the bases, no w/c/r, on room air CV: RRR, no m/r/g, no pitting edema, calves nontender, cap refill wnl MSK/Neuro: generalized weakness b/l LE, NVI, pulses palpable Psych: AOx3, cooperative and pleasant Skin: warm, perfused Results & Data Results & Data ([facility]) Vital Signs (Past 12 Hours) Vital Signs Temp Pulse Pulse Resp BP Pulse Ox O2 Del Method 11/22/22 08:27 72 18 95 Room Air 11/22/22 07:45 36.6 C 72 18 115/63 95 Room Air 11/21/22 21:03 37.3 C 89 18 158/76 H 94 Room Air, Trach Collar Laboratory Results 11/22/22 11/22/22 11/21/22 Range/Units 09:04 08:09 20:44 Sodium 139 (136-145) mmol/L Potassium 3.9 (3.5-5.1) mmol/L Chloride 108 H (98-107) mmol/L Carbon Dioxide 25 (21-32) mmol/L Anion Gap 6 (3-11) BUN 31 H (6-23) mg/dl Creatinine 1.58 H (0.6-1.2) mg/dl Est Cr Clr Drug Dosing 50.4 ml/min Est GFR ( Amer) 39.1 ml/min Est GFR (Non-Af Amer) 33.7 ml/min BUN/Creatinine Ratio 19.6 (10-20) Glucose 139 H (70-99(Fasting)) mg/dl POC Glucose 120 H 161 H (70-99) mg/dl Calcium 9.3 (8.5-10.1) mg/dl 11/21/22 11/21/22 Range/Units 17:19 12:14 Sodium (136-145) mmol/L Potassium (3.5-5.1) mmol/L Chloride (98-107) mmol/L Carbon Dioxide (21-32) mmol/L Anion Gap (3-11) BUN (6-23) mg/dl Creatinine (0.6-1.2) mg/dl Est Cr Clr Drug Dosing ml/min Est GFR ( Amer) ml/min Est GFR (Non-Af Amer) ml/min BUN/Creatinine Ratio (10-20) Glucose (70-99(Fasting)) mg/dl POC Glucose 125 H 158 H (70-99) mg/dl Calcium (8.5-10.1) mg/dl PG Care Time/CCT Total # of Minutes Spent Total Time Spent with Patient: Total time spent is greater than 50% in coordination of care (as documented) at patient's floor/unit and/or counseling patient: Coding Level of Care Code 69032 Subseq Hosp Care Lvl 1 Diagnoses SOB (shortness of breath) R06.02 Chronic diastolic congestive heart failure I50.32 Atypical chest pain R07.89 Weakness R53.1 Fracture of distal end of right femur S72.401A Hypothyroidism (acquired) E03.9 CKD stage 4 due to type 2 diabetes mellitus E11.22; N18.4 GERD (gastroesophageal reflux disease) K21.9 Insulin-requiring or dependent type II diabetes mellitus E11.9; Z79.4 Anxiety F41.9 Morbid obesity with BMI of 60.0-69.9, adult E66.01; Z68.44
[2022-11-22] MEDS: INSULIN, Rapid-Acting PUMP SCH ×4 (09:13→20:52)
[2022-11-22 09:43] LABS: BUN Creatinine Ratio 19.6 (10-20); Calcium 9.3 mg/dl (8.5-10.1); Creatinine Clr Calc Pharmacy 50.4 ml/min; Est GFR (African American) 39.1 ml/min; Est GFR (Non-African American) 33.7 ml/min; Potassium 3.9 mmol/L (3.5-5.1)
[2022-11-22] MEDS: ATORVASTATIN 40 MG TAB PO SCH (20:38)
[2022-11-22] MEDS: oxyCODONE HCL IR 5 MG TAB (IMMEDIATE RELEASE) PO PRN (20:51)
[2022-11-23] MEDS: LEVOTHYROXINE SODIUM 200 MCG TABLET PO SCH (04:56)
[2022-11-23] MEDS: LEVOTHYROXINE SODIUM 25 MCG TABLET PO SCH (04:56)
[2022-11-23] MEDS: PANTOprazole 40 MG TAB PO SCH (04:56)
[2022-11-23] MEDS: TORSEMIDE 20 MG TAB PO SCH (06:07)
[2022-11-23] MEDS: ALBUT/IPRATROP 3MG/0.5MG NEB 3 ML VIAL NEB PRN ×2 (07:33→15:27)
[2022-11-23] MEDS: ASPIRIN 81 MG ECTAB PO SCH (08:17)
[2022-11-23] MEDS: buPROPion SR 100 MG TABCR PO SCH ×2 (08:18→21:14)
[2022-11-23] MEDS: MULTIVITAMIN TAB PO SCH (08:19)
[2022-11-23] MEDS: EMPAGLIFLOZIN 10 MG TAB PO SCH (08:19)
[2022-11-23] MEDS: TOPIRAMATE 100 MG TAB PO SCH ×2 (08:20→21:12)
[2022-11-23] MEDS: FOLIC ACID 1 MG TAB PO SCH (08:20)
[2022-11-23] MEDS: SPIRONOLACTONE 25 MG TAB PO SCH (08:20)
[2022-11-23] MEDS: METOPROLOL TARTRATE 25 MG TAB PO SCH ×2 (08:21→21:14)
[2022-11-23] MEDS: ISOSORBIDE MONO EXTENDED REL 30 MG TABCR PO SCH (08:21)
[2022-11-23] MEDS: DOCUSATE SODIUM 100 MG CAP PO SCH ×2 (08:22→21:15)
[2022-11-23] MEDS: MAGNESIUM OXIDE 400 MG TAB PO SCH (08:22)
[2022-11-23] MEDS: ENOXAPARIN INJ 40 MG/0.4 ML SYR SQ SCH (08:24)
--- NOTE | 2022-11-23 08:30 | Hospitalist Progress Note ---
Date of Service November 23, 2022 Assessment & Plan (1) SOB (shortness of breath): Plan: Acute on Chronic related to COPD, OHS, RASHAAD, CHF. Now resolved and back to baseline. Continue prn Duonebs and inhalers. Continue daily torsemide and prn torsemide in afternoon for weight gain --> asked to administer dose torsemide prn for 1/2, but was not -- RN to administer today will ask RN to administer dose for today please wt 154.8kg from 152.2kg 11/19 and increased LE tightness reported. Monitor response to treatment Now at baseline and awaiting home health arrangements. Of note, daughter Oscar home w/ the flu. Reports has not visited since she was not feeling well. No increased SOB/fevers for Viviana. monitor (2) Chronic diastolic congestive heart failure: Plan: Acute on chronic combined systolic and diastolic CHF. Most recent ejection fraction 45%. Now back to baseline. Received some IV diuresis early on. Continue torsemide 20 mg daily and prn dose in the afternoon-for weight gain over 2 pounds. -Continue spironolactone, metoprolol, isosorbide mononitrate, ASA, atorvastatin. Limit salt intake. -follow BMP q2-3 weeks-senior producer stable at 1.6 on 11/22 (3) Atypical chest pain: Plan: related to acute HFpEF as above. Resolved. No evidence of acute coronary syndrome. (4) Weakness: Plan: Related to morbid obesity and chronic R femur fx with nonunion. On oxycodone as needed and Tylenol. 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 Continue PT/OT. Pain control measures Increased dose of oxycodone to 10mg for pain scale -10 and keep 5mg for scale 4-7-this is helping (6) Hypothyroidism (acquired): Plan: Continue Levothyroxine, recent increased from 200mcg daily to 225mcg in mid Aug for elevated TSH. TSH repeated on 10/22 and is now normal at 1.1 (7) CKD stage 4 due to type 2 diabetes mellitus: Plan: (baseline creatinine 1.3-1.8). Monitor intake and output. Avoid nephrotoxins. Target Protection Specialist remains at baseline of 1.6 (8) GERD (gastroesophageal reflux disease): Plan: Treated with protonix (9) Insulin-requiring or dependent type II diabetes mellitus: Plan: ADA diet. Now on an home insulin pump. Continue Jardiance. Hemoglobin A1c on 10/22 down to 7.2%. f/u with Endocrinology after discharge. (10) Anxiety: Plan: Stable on bupropion seen by Psychiatry here for passive suicidal thoughts mentioned to her daughter on phone not suicidal, appreciate Psych consult (11) Morbid obesity with BMI of 60.0-69.9, adult: Plan: Markedly elevated BMI. Weight loss medication- 11/14-patient does not want to discuss at this time. Does have a primary care physician who she is not seen in almost a year because of her rehab facility stays. Urged to broach the subject with her primary care physician because they are an excellent weight loss medications in the market and some of them antidiabetic drugs Plan Anticipate eventual discharge to home with assistance when arrangements are finalized. Case management is having difficulty finding home care personnel for 90 hours of care per week. Pt and PT now feel that she could get by with 45 horus a week instead-d/w CM who will try to get a hold of her social work case manager through her insurance-multiple calls have been made to the poultry farmer by both the patient and our mental health case manager with no response PRN torsemide given today for weight gain, monitor weight on repeat/additional dose if needed tomorrow Admission and Anticipated Discharge Date Admission Date: October 01, 2022 Supervising Physician Co-Signing Physician Notes The patient was not seen by me. Chart reviewed. Case discussed with KATIE Rea. Agree with assessment and plan Subjective Patient evaluated this afternoon, doing well. Breathing stable. To get her prn torsemide today based on weights. Blood sugars controlled. Eating/drinking/moving her bowels. Discussed 45hr vs 90hr aides pending her need for assistance with transfers but if able to do without assistance for toileting will be able to have decreased aides at home. CM following. Her daughter Oscar is home sick with the flu. She states she was not in to visit Viviana during this time/no contact as inquired to ensure no issues for Viviana. She did report feeling some tightness to her legs -- discussed weight gain, just given her torsemide. Will continue to monitor response/ongoing issues/weights. Questions/concerns addressed at this time. Review of Systems Review of Systems: All systems reviewed & are unremarkable except as noted in HPI & below Physical Exam Physical Exam: General: WD/morbidly obese female sitting up in chair, NAD HEENT: head normocephalic, thick neck, +metal trach, mmm Resp: diminished in the bases, no w/c/r, on room air CV: RRR, no m/r/g, slight edema b/l LE, calves nontender, cap refill wnl MSK/Neuro: generalized weakness b/l LE, NVI, pulses palpable Psych: AOx3, cooperative and pleasant Skin: warm, perfused Results & Data Results & Data ([facility]) Vital Signs (Past 12 Hours) Vital Signs Temp Pulse Pulse Resp BP Pulse Ox O2 Del Method 11/23/22 07:33 86 22 95 Room Air 11/23/22 07:29 36.7 C 67 20 145/71 H 96 Room Air 11/23/22 06:32 66 123/74 11/22/22 21:00 Trach Collar 11/22/22 20:47 37.1 C 91 H 20 138/74 94 Room Air Laboratory Results 11/23/22 11/23/22 11/22/22 Range/Units 11:41 08:05 20:43 POC Glucose 140 H 114 H 141 H (70-99) mg/dl 11/22/22 Range/Units 17:12 POC Glucose 130 H (70-99) mg/dl PG Care Time/CCT Total # of Minutes Spent Total Time Spent with Patient: Total time spent is greater than 50% in coordination of care (as documented) at patient's floor/unit and/or counseling patient: Coding Level of Care Code 36225 SUB INP/OBS CARE 2/35MIN Diagnoses SOB (shortness of breath) R06.02 Chronic diastolic congestive heart failure I50.32 Atypical chest pain R07.89 Weakness R53.1 Fracture of distal end of right femur S72.401A Hypothyroidism (acquired) E03.9 CKD stage 4 due to type 2 diabetes mellitus E11.22; N18.4 GERD (gastroesophageal reflux disease) K21.9 Insulin-requiring or dependent type II diabetes mellitus E11.9; Z79.4 Anxiety F41.9 Morbid obesity with BMI of 60.0-69.9, adult E66.01; Z68.44
[2022-11-23] MEDS: INSULIN, Rapid-Acting PUMP SCH ×4 (09:58→21:16)
[2022-11-23] MEDS: TORSEMIDE 10 MG TAB PO PRN (14:24)
[2022-11-23] MEDS: ATORVASTATIN 40 MG TAB PO SCH (21:14)
[2022-11-24] MEDS: LEVOTHYROXINE SODIUM 25 MCG TABLET PO SCH (06:01)
[2022-11-24] MEDS: TORSEMIDE 20 MG TAB PO SCH (06:01)
[2022-11-24] MEDS: LEVOTHYROXINE SODIUM 200 MCG TABLET PO SCH (06:01)
[2022-11-24] MEDS: PANTOprazole 40 MG TAB PO SCH (06:01)
[2022-11-24] MEDS: ALBUT/IPRATROP 3MG/0.5MG NEB 3 ML VIAL NEB PRN ×2 (07:31→14:48)
[2022-11-24] MEDS: TOPIRAMATE 100 MG TAB PO SCH ×2 (08:04→20:13)
[2022-11-24] MEDS: ASPIRIN 81 MG ECTAB PO SCH (08:04)
[2022-11-24] MEDS: buPROPion SR 100 MG TABCR PO SCH ×2 (08:05→20:11)
[2022-11-24] MEDS: FOLIC ACID 1 MG TAB PO SCH (08:05)
[2022-11-24] MEDS: EMPAGLIFLOZIN 10 MG TAB PO SCH (08:05)
[2022-11-24] MEDS: MULTIVITAMIN TAB PO SCH (08:05)
[2022-11-24] MEDS: METOPROLOL TARTRATE 25 MG TAB PO SCH ×2 (08:05→20:12)
[2022-11-24] MEDS: AZITHROMYCIN 250 MG TAB PO SCH (08:05)
[2022-11-24] MEDS: DOCUSATE SODIUM 100 MG CAP PO SCH ×2 (08:05→20:11)
[2022-11-24] MEDS: ENOXAPARIN INJ 40 MG/0.4 ML SYR SQ SCH (08:06)
[2022-11-24] MEDS: SPIRONOLACTONE 25 MG TAB PO SCH (08:06)
[2022-11-24] MEDS: MAGNESIUM OXIDE 400 MG TAB PO SCH (08:06)
[2022-11-24] MEDS: ISOSORBIDE MONO EXTENDED REL 30 MG TABCR PO SCH (08:06)
[2022-11-24] MEDS: INSULIN, Rapid-Acting PUMP SCH ×4 (09:06→20:18)
--- NOTE | 2022-11-24 14:18 | Hospitalist Progress Note ---
Date of Service November 24, 2022 Assessment & Plan (1) SOB (shortness of breath): Plan: Acute on Chronic related to COPD, OHS, RASHAAD, CHF. Now resolved and back to baseline. Continue prn Duonebs and inhalers. Continue daily torsemide and prn torsemide in afternoon for weight gain --> asked to administer dose torsemide prn for 1/2, but was not -- RN to administer today will ask RN to administer dose for today please wt 154.8kg from 152.2kg 11/19 and increased LE tightness reported. Monitor response to treatment Now at baseline and awaiting home health arrangements. Of note, daughter Oscar home w/ the flu. Reports has not visited since she was not feeling well. No increased SOB/fevers for Viviana. monitor (2) Chronic diastolic congestive heart failure: Plan: Acute on chronic combined systolic and diastolic CHF. Most recent ejection fraction 45%. Now back to baseline. Received some IV diuresis early on. Continue torsemide 20 mg daily and prn dose in the afternoon-for weight gain over 2 pounds. -Continue spironolactone, metoprolol, isosorbide mononitrate, ASA, atorvastatin. Limit salt intake. -follow BMP q2-3 weeks-inspector general stable at 1.6 on 11/22 (3) Atypical chest pain: Plan: related to acute HFpEF as above. Resolved. No evidence of acute coronary syndrome. (4) Weakness: Plan: Related to morbid obesity and chronic R femur fx with nonunion. On oxycodone as needed and Tylenol. 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 Continue PT/OT. Pain control measures Increased dose of oxycodone to 10mg for pain scale -10 and keep 5mg for scale 4-7-this is helping (6) Hypothyroidism (acquired): Plan: Continue Levothyroxine, recent increased from 200mcg daily to 225mcg in mid Aug for elevated TSH. TSH repeated on 10/22 and is now normal at 1.1 (7) CKD stage 4 due to type 2 diabetes mellitus: Plan: (baseline creatinine 1.3-1.8). Monitor intake and output. Avoid nephrotoxins. Cashier Associate remains at baseline of 1.6 (8) GERD (gastroesophageal reflux disease): Plan: Treated with protonix (9) Insulin-requiring or dependent type II diabetes mellitus: Plan: ADA diet. Now on an home insulin pump. Continue Jardiance. Hemoglobin A1c on 10/22 down to 7.2%. f/u with Endocrinology after discharge. (10) Anxiety: Plan: Stable on bupropion seen by Psychiatry here for passive suicidal thoughts mentioned to her daughter on phone not suicidal, appreciate Psych consult (11) Morbid obesity with BMI of 60.0-69.9, adult: Plan: Markedly elevated BMI. Weight loss medication- 11/14-patient does not want to discuss at this time. Does have a primary care physician who she is not seen in almost a year because of her rehab facility stays. Urged to broach the subject with her primary care physician because they are an excellent weight loss medications in the market and some of them antidiabetic drugs Plan Anticipate eventual discharge to home with assistance when arrangements are finalized. Case management is having difficulty finding home care personnel for 90 hours of care per week. Pt and PT now feel that she could get by with 45 horus a week instead-d/w CM who will try to get a hold of her showcase maker through her insurance-multiple calls have been made to the temporary receptionist by both the patient and our field nurse case manager with no response PRN torsemide given today for weight gain, monitor weight on repeat/additional dose if needed tomorrow Admission and Anticipated Discharge Date Admission Date: October 01, 2022 Subjective Patient was seen and evaluated at bedside today. She offers no complaints. She is patiently awaiting to be discharged home with services. Review of Systems Review of Systems: A complete 6 point review of systems was reviewed with the patient with pertinent positives and negatives as per history of present illness. All else were negative. Physical Exam Physical Exam: General: WD/morbidly obese female sitting up in chair, NAD HEENT: head normocephalic, thick neck, +metal trach, mmm Resp: diminished in the bases, no w/c/r, on room air CV: RRR, no m/r/g, slight edema b/l LE, calves nontender, cap refill wnl MSK/Neuro: generalized weakness b/l LE, NVI, pulses palpable Psych: AOx3, cooperative and pleasant Skin: warm, perfused Results & Data Results & Data ([facility]) Vital Signs (Past 12 Hours) Vital Signs Temp Pulse Pulse Resp BP Pulse Ox O2 Del Method 11/24/22 07:54 Room Air, Trach Collar 11/24/22 07:32 78 18 95 Room Air 11/24/22 07:10 36.8 C 73 18 126/71 94 Room Air
[2022-11-24] MEDS: oxyCODONE HCL IR 5 MG TAB (IMMEDIATE RELEASE) PO PRN (19:43)
[2022-11-24] MEDS: ACETAMINOPHEN 325 MG TAB PO PRN (19:43)
[2022-11-24] MEDS: ATORVASTATIN 40 MG TAB PO SCH (20:11)
[2022-11-25] MEDS: LEVOTHYROXINE SODIUM 200 MCG TABLET PO SCH (06:13)
[2022-11-25] MEDS: LEVOTHYROXINE SODIUM 25 MCG TABLET PO SCH (06:13)
[2022-11-25] MEDS: PANTOprazole 40 MG TAB PO SCH (06:13)
[2022-11-25] MEDS: TORSEMIDE 20 MG TAB PO SCH (06:15)
[2022-11-25] MEDS: ALBUT/IPRATROP 3MG/0.5MG NEB 3 ML VIAL NEB PRN ×2 (07:45→16:47)
[2022-11-25] MEDS: METOPROLOL TARTRATE 25 MG TAB PO SCH ×2 (08:19→20:15)
[2022-11-25] MEDS: ENOXAPARIN INJ 40 MG/0.4 ML SYR SQ SCH (08:19)
[2022-11-25] MEDS: ASPIRIN 81 MG ECTAB PO SCH (08:20)
[2022-11-25] MEDS: MULTIVITAMIN TAB PO SCH (08:20)
[2022-11-25] MEDS: EMPAGLIFLOZIN 10 MG TAB PO SCH (08:20)
[2022-11-25] MEDS: ISOSORBIDE MONO EXTENDED REL 30 MG TABCR PO SCH (08:20)
[2022-11-25] MEDS: buPROPion SR 100 MG TABCR PO SCH ×2 (08:20→20:15)
[2022-11-25] MEDS: FOLIC ACID 1 MG TAB PO SCH (08:20)
[2022-11-25] MEDS: SPIRONOLACTONE 25 MG TAB PO SCH (08:20)
[2022-11-25] MEDS: DOCUSATE SODIUM 100 MG CAP PO SCH ×2 (08:21→20:15)
[2022-11-25] MEDS: MAGNESIUM OXIDE 400 MG TAB PO SCH (08:21)
[2022-11-25] MEDS: TOPIRAMATE 100 MG TAB PO SCH ×2 (08:22→20:15)
[2022-11-25] MEDS: INSULIN, Rapid-Acting PUMP SCH ×4 (10:13→20:51)
[2022-11-25] MEDS: ATORVASTATIN 40 MG TAB PO SCH (20:15)
--- NOTE | 2022-11-25 20:20 | Hospitalist Progress Note ---
Date of Service November 25, 2022 Assessment & Plan (1) SOB (shortness of breath): Plan: Attending: Dr. Hampton Acute on Chronic related to COPD, OHS, RASHAAD, CHF. Now resolved and back to baseline. Continue prn Duonebs and inhalers. Continue daily torsemide and prn torsemide in afternoon for weight gain Now at baseline and awaiting home health arrangements. (2) Chronic diastolic congestive heart failure: Plan: Acute on chronic combined systolic and diastolic CHF. Most recent ejection fraction 45%. Now back to baseline. Continue torsemide 20 mg daily and prn dose in the afternoon-for weight gain over 2 pounds. -Continue spironolactone, metoprolol, isosorbide mononitrate, ASA, atorvastatin. Limit salt intake. 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 Resolved. No evidence of acute coronary syndrome. (4) Weakness: Plan: Related to morbid obesity and chronic R femur fx with nonunion. On oxycodone as needed and Tylenol. 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 Continue PT/OT. Pain control measures Increased dose of oxycodone to 10mg for pain scale -10 and keep 5mg for scale 4-7-this is helping (6) Hypothyroidism (acquired): Plan: Continue Levothyroxine, recent increased from 200mcg daily to 225mcg in mid Oct for elevated TSH. TSH repeated on 10/22 and is now normal at 1.1 (7) CKD stage 4 due to type 2 diabetes mellitus: Plan: (baseline creatinine 1.3-1.8). Monitor intake and output. Avoid nephrotoxins. (8) GERD (gastroesophageal reflux disease): Plan: Continue protonix (9) Insulin-requiring or dependent type II diabetes mellitus: Plan: ADA diet. Now on an home insulin pump. Continue Jardiance. Hemoglobin A1c on 10/22 down to 7.2%. f/u with Endocrinology after discharge. (10) Anxiety: Plan: Stable on bupropion seen by Psychiatry here for passive suicidal thoughts mentioned to her daughter on phone not suicidal, appreciate Psych consult (11) Morbid obesity with BMI of 60.0-69.9, adult: Plan: Markedly elevated BMI. Weight loss medication- 11/14-patient does not want to d iscuss at this time. Does have a primary care physician who she is not seen in almost a year because of her rehab facility stays. Urged to broach the subject with her primary care physician because they are an excellent weight loss medications in the market and some of them antidiabetic drugs Plan Anticipate eventual discharge to home with assistance when arrangements are finalized. Case management is having difficulty finding home care personnel for 90 hours of care per week. Pt and OT now feel that she could get by with 45 hours a week instead- CM will try to get a in touch with her foster care case manager through her insurance Admission and Anticipated Discharge Date Admission Date: October 01, 2022 Supervising Physician Co-Signing Physician Notes Attending Attestation - Chart reviewed, care plan d/w PA Jasper Velarde. I agree w/ the pappas components of his documentation. Gregory Hampton MD Subjective Attending: Dr. Hampton Patient was seen and evaluated at bedside today. She offers no complaints. She is patiently awaiting to be discharged home with services. Apparently, ramp and other modifications to the home are completed. They are trying to coordinate private duty care versus coordinated care with home health services to manage her at home. Patient was previously at [facility] and refuses to be discharged back there. Daughter Oscar is working with agencies and with hospital to try and find help to take care of Whit on discharge. Review of Systems Review of Systems: A total of 10 systems was reviewed and is negative other than as listed in the HPI Physical Exam Physical Exam: GENERAL : No acute distress EYES: No icterus, gaze conjugate NOSE: No evidence of epistaxis MOUTH: No lesions or candidiasis NECK: Supple. Metal Christophe tracheostomy is in place. No inappropriate drainage or erythema around the os LUNGS: Generally CTA B/L, no rales or rhonchi.Some very scattered wheezes which clear mostly with forced cough HEART: Regular, rate controlled ABDOMEN: Soft, NT, ND, BS Present EXTREMITIES: No LE edema, pedal pulses intact NEURO: A&OX3 Results & Data Results & Data ([facility] [place]) Vital Signs (Past 12 Hours) Vital Signs Temp Pulse Pulse Resp BP Pulse Ox O2 Del Method 11/25/22 16:49 84 20 96 Room Air 11/25/22 15:33 36.8 C 78 18 116/70 94 Room Air Critical Care Results & Data Vital Signs (Past 12 Hours) Vital Signs Temp Pulse Pulse Resp BP Pulse Ox O2 Del Method 11/25/22 16:49 84 20 96 Room Air 11/25/22 15:33 36.8 C 78 18 116/70 94 Room Air Lab & Micro Results (Past 24 Hours) No Data to Display No Data to Display No Data to Display I & O Totals 24 Hours 11/24/22 11/25/22 11/26/22 06:59 06:59 06:59 Intake Total 350 / 350 625 / 625 Output Total 1600 / 1600 700 / 700 Balance -1250 / -1250 -700 / -700 625 / 625 Cumulative 10/01/22 15:23 thru 11/25/22 18:27 Intake Total 68916 Output Total 56812 Balance 7700 RT Ventilator Mngmt (Last Documented) Ventilator Ordered Settings Respiratory Rate 20 11/25/22 16:49 Fraction of Inspired Oxygen 28 11/19/22 23:51 Ventilator - PT Measurements Respiratory Rate 20 PG Care Time/CCT Total # of Minutes Spent Total Time Spent with Patient: Total time spent is greater than 50% in coordination of care (as documented) at patient's floor/unit and/or counseling patient: Coding Level of Care Code 99888 SUB INP/OBS CARE 12/15MIN Diagnoses SOB (shortness of breath) R06.02 Chronic diastolic congestive heart failure I50.32 Atypical chest pain R07.89 Weakness R53.1 Fracture of distal end of right femur S72.401A Hypothyroidism (acquired) E03.9 CKD stage 4 due to type 2 diabetes mellitus E11.22; N18.4 GERD (gastroesophageal reflux disease) K21.9 Insulin-requiring or dependent type II diabetes mellitus E11.9; Z79.4 Anxiety F41.9 Morbid obesity with BMI of 60.0-69.9, adult E66.01; Z68.44
[2022-11-26] MEDS: ACETAMINOPHEN 325 MG TAB PO PRN ×2 (00:25→23:43)
[2022-11-26] MEDS: oxyCODONE HCL IR 5 MG TAB (IMMEDIATE RELEASE) PO PRN ×2 (00:25→23:43)
[2022-11-26] MEDS: LEVOTHYROXINE SODIUM 200 MCG TABLET PO SCH (06:10)
[2022-11-26] MEDS: LEVOTHYROXINE SODIUM 25 MCG TABLET PO SCH (06:10)
[2022-11-26] MEDS: PANTOprazole 40 MG TAB PO SCH (06:10)
[2022-11-26] MEDS: TORSEMIDE 10 MG TAB PO PRN (06:10)
[2022-11-26] MEDS: TORSEMIDE 20 MG TAB PO SCH (06:19)
[2022-11-26] MEDS: ALBUT/IPRATROP 3MG/0.5MG NEB 3 ML VIAL NEB PRN ×2 (07:47→15:58)
[2022-11-26] MEDS: INSULIN, Rapid-Acting PUMP SCH ×4 (09:25→21:09)
[2022-11-26] MEDS: ENOXAPARIN INJ 40 MG/0.4 ML SYR SQ SCH (09:27)
[2022-11-26] MEDS: ASPIRIN 81 MG ECTAB PO SCH (09:28)
[2022-11-26] MEDS: buPROPion SR 100 MG TABCR PO SCH ×2 (09:28→21:09)
[2022-11-26] MEDS: AZITHROMYCIN 250 MG TAB PO SCH (09:28)
[2022-11-26] MEDS: ISOSORBIDE MONO EXTENDED REL 30 MG TABCR PO SCH (09:29)
[2022-11-26] MEDS: EMPAGLIFLOZIN 10 MG TAB PO SCH (09:29)
[2022-11-26] MEDS: MAGNESIUM OXIDE 400 MG TAB PO SCH (09:29)
[2022-11-26] MEDS: DOCUSATE SODIUM 100 MG CAP PO SCH ×2 (09:29→21:09)
[2022-11-26] MEDS: FOLIC ACID 1 MG TAB PO SCH (09:29)
[2022-11-26] MEDS: METOPROLOL TARTRATE 25 MG TAB PO SCH ×2 (09:30→21:08)
[2022-11-26] MEDS: MULTIVITAMIN TAB PO SCH (09:30)
[2022-11-26] MEDS: SPIRONOLACTONE 25 MG TAB PO SCH (09:30)
[2022-11-26] MEDS: TOPIRAMATE 100 MG TAB PO SCH ×2 (09:31→21:09)
--- NOTE | 2022-11-26 09:57 | Hospitalist Progress Note ---
Date of Service November 26, 2022 Assessment & Plan (1) SOB (shortness of breath): Plan: Acute on Chronic related to COPD, OHS, RASHAAD, CHF. Now resolved and back to baseline. Continue prn Duonebs and inhalers. Continue daily torsemide and prn torsemide in afternoon for weight gain Now at baseline and awaiting home health arrangements. (2) Chronic diastolic congestive heart failure: Plan: Acute on chronic combined systolic and diastolic CHF. Most recent ejection fraction 45%. Now back to baseline. Continue torsemide 20 mg daily and prn dose in the afternoon-for weight gain over 2 pounds. -Continue spironolactone, metoprolol, isosorbide mononitrate, ASA, atorvastatin. Limit salt intake. 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 Resolved. No evidence of acute coronary syndrome. (4) Weakness: Plan: Related to morbid obesity and chronic R femur fx with nonunion. On oxycodone as needed and Tylenol. 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 Continue PT/OT. Pain control measures Increased dose of oxycodone to 10mg for pain scale -10 and keep 5mg for scale 4-7-this is helping (6) Hypothyroidism (acquired): Plan: Continue Levothyroxine, recent increased from 200mcg daily to 225mcg in mid Oct for elevated TSH. TSH repeated on 10/22 and is now normal at 1.1 (7) CKD stage 4 due to type 2 diabetes mellitus: Plan: (baseline creatinine 1.3-1.8). Monitor intake and output. Avoid nephrotoxins. (8) GERD (gastroesophageal reflux disease): Plan: Continue protonix (9) Insulin-requiring or dependent type II diabetes mellitus: Plan: ADA diet. Now on an home insulin pump. Continue Jardiance. Hemoglobin A1c on 10/22 down to 7.2%. f/u with Endocrinology after discharge. (10) Anxiety: Plan: Stable on bupropion seen by Psychiatry here for passive suicidal thoughts mentioned to her daughter on phone not suicidal, appreciate Psych consult (11) Morbid obesity with BMI of 60.0-69.9, adult: Plan: Markedly elevated BMI. Weight loss medication- 11/14-patient does not want to discuss at this time. Does have a primary care physician who she is not seen in almost a year because of her rehab facility stays. Urged to broach the subject with her primary care physician because they are an excellent weight loss medications in the market and some of them antidiabetic drugs Plan Anticipate eventual discharge to home with assistance when arrangements are finalized. Case management is having difficulty finding home care personnel for 90 hours of care per week. Pt and OT now feel that she could get by with 45 hours a week instead- CM has been in touch with her shoe caser through her insurance as of 11/24/22 and she is aware of needing 8 hrs/day of caregivers but still cannot find any caregivers available. Admission and Anticipated Discharge Date Admission Date: October 01, 2022 Subjective Feeling well, no complaints. Is independently getting out of bed to bedside chair with stand and pivot. No SOB Review of Systems Review of Systems: All systems reviewed & are unremarkable except as noted in HPI & below Physical Exam Constitutional: WD/WN, vitals as above Eyes: + anicteric sclerae Neck: trachea midline, no thyromegaly + abnormal visual inspection (trach in place) Respiratory: normal respiratory effort, lungs clear to auscultation normal respiratory effort Cardiovascular: RRR, no murmur, no edema Gastrointestinal (Abdomen): normal bowel sounds, soft, nontender, no hepatosplenomegaly Musculoskeletal: Extremities: extremities normal to inspection; no cyanosis and no clubbing Skin: no rashes, warm and dry Neurologic: moves all extremities and awake; no focal motor deficits Psychiatric: A+Ox3, euthymic affect Lymphatic: no lymphedema Results & Data Results & Data ([facility]) Vital Signs (Past 12 Hours) Vital Signs Temp Pulse Pulse Resp BP Pulse Ox O2 Del Method 11/26/22 07:48 84 18 97 Room Air 11/26/22 07:08 36.6 C 70 18 151/74 H 95 Room Air 11/25/22 22:00 Room Air, Trach Collar 11/25/22 23:06 64 20 93 Trach Collar PG Care Time/CCT Total # of Minutes Spent Total Time Spent with Patient: Total time spent is greater than 50% in coordination of care (as documented) at patient's floor/unit and/or counseling patient: Coding Level of Care Code 63903 SUB INP/OBS CARE 12/15MIN Diagnoses SOB (shortness of breath) R06.02 Chronic diastolic congestive heart failure I50.32 Atypical chest pain R07.89 Weakness R53.1 Fracture of distal end of right femur S72.401A Hypothyroidism (acquired) E03.9 CKD stage 4 due to type 2 diabetes mellitus E11.22; N18.4 GERD (gastroesophageal reflux disease) K21.9 Insulin-requiring or dependent type II diabetes mellitus E11.9; Z79.4 Anxiety F41.9 Morbid obesity with BMI of 60.0-69.9, adult E66.01; Z68.44
[2022-11-26] MEDS: ATORVASTATIN 40 MG TAB PO SCH (21:09)
[2022-11-27] MEDS: LEVOTHYROXINE SODIUM 200 MCG TABLET PO SCH (06:05)
[2022-11-27] MEDS: PANTOprazole 40 MG TAB PO SCH (06:05)
[2022-11-27] MEDS: LEVOTHYROXINE SODIUM 25 MCG TABLET PO SCH (06:06)
[2022-11-27] MEDS: TORSEMIDE 20 MG TAB PO SCH (06:06)
[2022-11-27] MEDS: ALBUT/IPRATROP 3MG/0.5MG NEB 3 ML VIAL NEB PRN ×2 (07:55→15:36)
[2022-11-27] MEDS: INSULIN, Rapid-Acting PUMP SCH ×4 (08:45→21:13)
[2022-11-27] MEDS: EMPAGLIFLOZIN 10 MG TAB PO SCH (08:46)
[2022-11-27] MEDS: ENOXAPARIN INJ 40 MG/0.4 ML SYR SQ SCH (08:46)
[2022-11-27] MEDS: ASPIRIN 81 MG ECTAB PO SCH (08:46)
[2022-11-27] MEDS: SPIRONOLACTONE 25 MG TAB PO SCH (08:46)
[2022-11-27] MEDS: METOPROLOL TARTRATE 25 MG TAB PO SCH ×2 (08:46→21:08)
[2022-11-27] MEDS: MULTIVITAMIN TAB PO SCH (08:46)
[2022-11-27] MEDS: FOLIC ACID 1 MG TAB PO SCH (08:46)
[2022-11-27] MEDS: DOCUSATE SODIUM 100 MG CAP PO SCH ×2 (08:46→21:07)
[2022-11-27] MEDS: TOPIRAMATE 100 MG TAB PO SCH ×2 (08:46→21:07)
[2022-11-27] MEDS: buPROPion SR 100 MG TABCR PO SCH ×2 (08:46→21:07)
[2022-11-27] MEDS: ISOSORBIDE MONO EXTENDED REL 30 MG TABCR PO SCH (08:48)
[2022-11-27] MEDS: oxyCODONE HCL IR 5 MG TAB (IMMEDIATE RELEASE) PO PRN (11:40)
[2022-11-27] MEDS: ACETAMINOPHEN 325 MG TAB PO PRN (12:28)
[2022-11-27] MEDS: MAGNESIUM OXIDE 400 MG TAB PO SCH (15:00)
--- NOTE | 2022-11-27 20:04 | Hospitalist Progress Note ---
Date of Service November 27, 2022 Assessment & Plan (1) Adjustment disorder with depressed mood: Plan: she voices severely depressed mood over her entire life situation PROLONGED institutionalized status (here, [facility], SNF, etc), not being able to see her daughter, poor sleep, etc she is already on wellbutrin 100mg qam + wellbutrin 200mg qhs she is already on topamax 100mg qam and 200mg qhs I contacted Dr Parsons from psychiatry to see if Ms Connelly can be re-evaluated for her depression Defer any med changes to Dr Parsons (2) Acute on chronic combined systolic and diastolic CHF (congestive heart failure): Plan: Was decompensated earlier in the stay. Looks euvolemic today. Asked staff to get another weight on her today. Remains on torsemide 20 mg daily and prn dose for weight gain. Continue spironolactone, metoprolol, isosorbide mononitrate, ASA, atorvastatin. Last echo - 09/2022 with EF 45-50%. (3) Fracture of distal end of right femur: Plan: Chronic nonunion of fracture. NWB to RLE. Continue PT/OT. Pain control. Change tylenol to scheduled - 1mg TID. d/c oxy 5mg - not helpful. Cont oxy 10mg prn. Could consider an NSAID but I am concerned this would cause fluid retention - defer for now. But can continue / reorder voltaren gel qid. Last orthopedic visit was July while inpatient? May be helpful to repeat x-rays and have ortho see her again for interval change. Last x-rays were 07/2022. (4) Type 2 diabetes mellitus: Plan: On insulin pump with excellent readings. Most recent a1c = 7.2% in 10/2022. Cont jardiance as well. (5) SOB (shortness of breath): Plan: Earlier this stay - 2nd to acute/chronic CHF, COPD, OHS, RASHAAD. Resolved and back to baseline. Continue prn Duonebs and inhalers. Continue daily torsemide and prn torsemide in afternoon for weight gain. (6) Weakness: Plan: Related to morbid obesity and chronic R femur fx with nonunion. On oxycodone as needed and scheduled Tylenol. PT/OT as often as possible. Treat underlying depression. (7) Hypothyroidism (acquired): Plan: Continue Levothyroxine, recent increase from 200mcg daily to 225mcg in mid Oct for elevated TSH. TSH repeated on 10/22 and is now normal at 1.1. (8) CKD stage 4 due to type 2 diabetes mellitus: Plan: Baseline creatinine 1.3-1.8. Last Cr was 1.5 a few days ago. Her CrCl is low 50s c/w CKD stage 3. Repeat BMP in about a week for stability. (9) GERD (gastroesophageal reflux disease): Plan: Continue protonix (10) Anxiety: Plan: see above in #1 (11) Morbid obesity with BMI of 60.0-69.9, adult: Plan: BMI 62 (12) Tracheostomy dependence: Plan: for RASHAAD/OHS no issues at this time (13) Poor social situation: Plan: her prolonged hospital stay is due to disposition difficulties she was previously at [facility] - refuses to go back there she refuses to attend another SNF or go out of the area for placement she wishes to go home by report has a large # of hours (90 by report) approved for in-home personal care; however, finding caregivers has been severely problematic social work has contacted between 20-30 home health agencies to try and secure help to no avail further, she needs a ramp built to be able to enter her home she also needs her entryway door widened to accommodate a large wheelchair (14) DVT prophylaxis: Plan: currently lovenox 40mg daily really should be on lovenox 40mg BID Admission and Anticipated Discharge Date Admission Date: October 01, 2022 Subjective patient sitting in chair by window within a minute or two of my arrival she was in tears - profusely sobbing she kept saying over and over "I just want to go home" she misses her daughter she has not been able to see her on a regular basis due to her prolonged hospitalization and her daughter has disabilities she mentions that the ramp which she needs to traverse the two steps into her home has not been built someone in the community who was trying to coordinate this has not had success in getting the ramp built she also needs the front door widened to allow safe, easy passage into the house she is frustrated that she (and our hospital) cannot find caregivers for her at her house she has even contacted her [employer] where she belongs and no community members in her [place] community are available to provide care services she admits to feeling severely depressed she has insomnia - woke up at 2am this am and never was able to fall back asleep eating ok no new physical complaints Review of Systems Review of Systems: gen - chronic fatigue cv - no cp pulm - no dyspnea, no sputum production via trach GI - no pain musculo - c/o severe, chronic, daily pain of right knee Physical Exam Physical Exam: gen - morbidly obese, crying profusely, sitting in chair neck - neck size precludes assessing for JVD; metal trach in place - clean, no drainage/sputum mouth - MMM heart - RRR, s1 s2 lungs - CTA b/l, no adventitious sounds abd - soft NT ND BS+ ext - no edema of feet, pulses 2+ b/l psych - a/o x 3; severely depressed & crying Results & Data Results & Data ([facility]) Vital Signs (Past 12 Hours) Vital Signs Temp Pulse Resp BP Pulse Ox O2 Del Method 11/27/22 15:37 72 16 93 Room Air 11/27/22 08:44 36.6 C 73 16 155/77 H 98 Room Air Laboratory Results Laboratory Results - last 24 hr 11/26/22 11/27/22 11/27/22 20:09 08:24 12:20 POC Glucose 168 H 167 H 172 H 11/27/22 17:04 POC Glucose 169 H PG Care Time/CCT Total # of Minutes Spent Total Time Spent with Patient: Total time spent is greater than 50% in coordination of care (as documented) at patient's floor/unit and/or counseling patient: Coding Level of Care Code 56896 SUB INP/OBS CARE 2/35MIN Diagnoses Adjustment disorder with depressed mood F43.21 Acute on chronic combined systolic and diastolic CHF (congestive heart failure) I50.43 Fracture of distal end of right femur S72.401A Type 2 diabetes mellitus E11.9 SOB (shortness of breath) R06.02 Weakness R53.1 Hypothyroidism (acquired) E03.9 CKD stage 4 due to type 2 diabetes mellitus E11.22; N18.4 GERD (gastroesophageal reflux disease) K21.9 Anxiety F41.9 Morbid obesity with BMI of 60.0-69.9, adult E66.01; Z68.44 Tracheostomy dependence Z93.0 Poor social situation Z65.9 DVT prophylaxis Z29.9
[2022-11-27] MEDS: ACETAMINOPHEN 500 MG TAB PO SCH (21:07)
[2022-11-27] MEDS: ATORVASTATIN 40 MG TAB PO SCH (21:07)
[2022-11-28] MEDS: TORSEMIDE 20 MG TAB PO SCH (06:09)
[2022-11-28] MEDS: PANTOprazole 40 MG TAB PO SCH (06:09)
[2022-11-28] MEDS: LEVOTHYROXINE SODIUM 25 MCG TABLET PO SCH (06:09)
[2022-11-28] MEDS: ACETAMINOPHEN 500 MG TAB PO SCH ×3 (06:09→21:11)
[2022-11-28] MEDS: LEVOTHYROXINE SODIUM 200 MCG TABLET PO SCH (06:10)
--- NOTE | 2022-11-28 08:15 | XRay Report ---
XR knee RT 1 or 2V routine HISTORY: 67 years-old Female chronic nonunion distal femur Fx; interval change follow-up study in a patient with a chronic ununited fracture of the distal right femur COMPARISON: 08/20/2022 TECHNIQUE: 2 views of the right knee FINDINGS: Comminuted displaced and angulated ununited fracture of the distal femur redemonstrated which again d emonstrates 1.8 cm lateral and 1.9 cm posterior displacement. The degree of posterior displacement denson s worsened from the prior study. Exam is limited secondary to positioning. Progressive bony callus fo rmation. Cortical thickening of the proximal fibula redemonstrated. Unchanged mild depression of the lateral tibial plateau. Demineralized appearance the bones. Mild to moderate medial patellofemoral co mpartment joint space narrowing. No additional acute fracture or dislocation identified. IMPRESSION: 1. Chronic ununited distal femoral fracture redemonstrated with mildly worsened posterior displacemen t and progressive bony callus formation. 2. Mild depression of the lateral tibial plateau again noted. ACT 112: Negative or not required by law. The above report was generated using voice recognition software. It may contain grammatical, syntax o r spelling errors. Electronically signed by: Robbie Henderson M.D. 11/28/2022 8:13 AM
[2022-11-28] MEDS: ALBUT/IPRATROP 3MG/0.5MG NEB 3 ML VIAL NEB PRN ×3 (08:23→20:07)
[2022-11-28] MEDS: INSULIN, Rapid-Acting PUMP SCH ×4 (09:49→21:18)
[2022-11-28] MEDS: ENOXAPARIN INJ 40 MG/0.4 ML SYR SQ SCH (09:53)
[2022-11-28] MEDS: METOPROLOL TARTRATE 25 MG TAB PO SCH ×2 (09:54→21:12)
[2022-11-28] MEDS: EMPAGLIFLOZIN 10 MG TAB PO SCH (09:54)
[2022-11-28] MEDS: DOCUSATE SODIUM 100 MG CAP PO SCH ×2 (09:54→21:12)
[2022-11-28] MEDS: MAGNESIUM OXIDE 400 MG TAB PO SCH (09:54)
[2022-11-28] MEDS: ISOSORBIDE MONO EXTENDED REL 30 MG TABCR PO SCH (09:54)
[2022-11-28] MEDS: FOLIC ACID 1 MG TAB PO SCH (09:54)
[2022-11-28] MEDS: buPROPion SR 100 MG TABCR PO SCH ×2 (09:54→21:12)
[2022-11-28] MEDS: ASPIRIN 81 MG ECTAB PO SCH (09:54)
[2022-11-28] MEDS: MULTIVITAMIN TAB PO SCH (09:55)
[2022-11-28] MEDS: DICLOFENAC SOD 1% GEL 100 GM TUBE EXT SCH ×4 (09:55→21:12)
[2022-11-28] MEDS: SPIRONOLACTONE 25 MG TAB PO SCH (09:55)
[2022-11-28] MEDS: TOPIRAMATE 100 MG TAB PO SCH ×2 (09:55→21:10)
--- NOTE | 2022-11-28 14:10 | Psychiatric Progress Note ---
Date of Service November 28, 2022 Impression / Recommendations Impression 67 yo woman with history of depression and anxiety with worsening mood symptoms in context of ongoing medical issues and prolonged hospitalization due to lack of home health resources. Acute risk of self-harm is low given denial of SI and future-oriented with focus on returning home with daughter and dog. Diagnostically consistent with adjustment disorder with mixed depression and anxiety. Discussed medication treatment options in detail. Discussed risks, benefits and alternatives. Patient would like to start and consented to sertraline for depression and anxiety.Reviewed side effects including but not limited to: GI, WHALEN, sexual side effects. Discussed that lorazepam would be contraindicated given history of falls. She does not desire change in Wellbutrin dosing timing, reviewed that dose at bedtime could cause significant insomnia. She did make statements at times of her desire to return home even if home health assistance was not yet available. Decision making capacity assessment for leaving AMA or returning home without home health care was assessed per below in case she decides she no longer wants to wait for home based services or becomes insistent on leaving. She was able to speak to risks of falling, breaking another bone or even dying if at home without assistance but feels she is ok with accepting these risks as she is sick of being in the hospital. Assessment of Decision-Making Capacity Criterion (X=present) Patient Task X Communicates a choice Patient is able to clearly indicate preferred treatment option in a clear and consistent manner X Understands information provided Patient understands their condition and treatment options X Appreciates consequences Patient shows appropriately nuanced appreciation for the risks & benefits associated with available treatment options, including no treatment X Manipulates relevant information Patient able to rationally weigh risks & benefits, as well as offer reasons for their decision It is important to note that a patient's decision can be unwise as long as a rational process was used to arrive at it. Decision making capacity determinations are decision and time specific. This patient has capacity with respect to this particular decision-making task at this time. They are able to articulate reasons for their decision and shows no signs of cognitive impairment, delirium, psychosis, or severe depression that could otherwise interfere with their ability to meaningfully understand information and appreciate the risks of refusing treatment. The patient's decision making capacity could change in the future given that their mental status and various other factors can certainly fluctuate over time. (1) Adjustment disorder with depressed mood: (2) Anxiety: Plan 1/8/23: -Start sertraline 25mg qd -Continue Wellbutrin (she declines alternative dosing schedule or switch to XL formulation) Interval History Identifying Information 67 yo female from [place] residing at [facility] prior to admission. Admit medically on 10/01/22 for chest pain superimposed on chronic medical issues of morbid obesity, right femur fracture unlikely to heal further, nonambulatory status, tracheostomy dependent, COPD, diastolic heart failure, anxiety, DM2, GERD, CKD4, hypothyroidism, HTN, CAD. Psychiatry consulted in late October and reconsulted due to worsening mood symptoms. Chief Complaint "I'm here, I'm stuck". Review of Systems Notes sleep and appetite stable Subjective Subjective Patient was seen & assessed and interval progress reviewed. Whit expresses increased depression and tearfulness due to prolonged confinement in hospitals and [facility] settings due to medical issues. She has not been home since last March and is eager to return noting she misses her daughter, with whom she lives, and her dog. 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 She doesn't wish to make any changes to Wellbutrin as "I like just like it is". Reviewed somewhat strange dosing as Wellbutrin can be quite activating and typically would be given all in the morning or if split with lower dose in late afternoon but she denies any issues with insomnia or interfering with sleep quality. She is interested in an SSRI to help with anxiety and depression due to prolonged hospitalization. Had prior bad response to lexapro but thinks sertraline may have been helpful in the past. Physical Exam Psychiatric Orientation: alert and oriented x 3 Apperance: appropriately dressed and appropriately groomed Eye Contact: good eye contact Motor Behavior: no abnormal motor movements Speech: normal rate/rhythm/volume of speech Affect: + depressed affect and + tearful affect Mood: + depressed mood and + anxious mood Thought Process: goal directed thought process Thought Content: reality based without delusions Suicidal Thoughts: denies suicidal thoughts Homicidal Thoughts: denies homicidal thoughts Hallucinations: no auditory hallucinations and no visual hallucinations Cognition: attention grossly intact and language grossly intact Estimated Intelligence: consistent with education level Insight: + fair insight Judgement: + limited judgement Vital Signs (Past 24 Hours) Last Vital Signs Temp 36.9 C 11/28/22 07:43 Pulse 78 11/28/22 08:23 Resp 18 11/28/22 08:23 BP 157/79 H 11/28/22 07:43 Pulse Ox 95 11/28/22 08:23 O2 Del Method 11/28/22 10:11 O2 Flow Rate 6 11/27/22 23:29 FiO2 28 11/27/22 23:29 Results & Data ([facility]) Laboratory Results Laboratory Results - last 24 hr 11/27/22 11/27/22 11/28/22 17:04 20:09 08:10 POC Glucose 169 H 163 H 145 H 11/28/22 12:07 POC Glucose 180 H Current Inpatient Medications Current Inpatient Medications: Current Inpatient Medications Acetaminophen (Acetaminophen 500 Mg Tab) 1,000 mg PO Q8 ASIYA Stop: 12/27/22 21:59 Last Admin: 11/28/22 13:35 Dose: 1,000 mg Albuterol (Albut/Ipratrop 3mg/0.5mg Neb 3 Ml Vial) 3 ml NEB Q4R PRN; Protocol PRN Reason: wheezing Stop: 12/06/22 10:59 Last Admin: 11/28/22 08:23 Dose: 3 ml Aspirin (Aspirin 81 Mg Ectab) 81 mg PO QAM ASIYA Stop: 12/24/22 08:59 Last Admin: 11/28/22 09:54 Dose: 81 mg Atorvastatin Calcium (Atorvastatin 40 Mg Tab) 40 mg PO QPM ASIYA Stop: 12/24/22 21:19 Last Admin: 11/27/22 21:07 Dose: 40 mg Azithromycin (Azithromycin 250 Mg Tab) 250 mg PO MoWeFr [facility] Stop: 12/31/22 08:59 Last Admin: 11/26/22 09:28 Dose: 250 mg Bupropion HCl (Bupropion Sr 100 Mg Tabcr) 100 mg PO QAM ASIYA Stop: 12/24/22 08:59 Last Admin: 11/28/22 09:54 Dose: 100 mg Bupropion HCl (Bupropion Sr 100 Mg Tabcr) 200 mg PO PM [facility] Stop: 01/02/23 21:59 Last Admin: 11/27/22 21:07 Dose: 200 mg Dextrose (Dextrose 50% 50 Ml Syringe) 25 - 50 ml IV UD PRN; Protocol PRN Reason: Hypoglycemia Protocol Stop: 12/01/22 14:44 Diclofenac Sodium (Diclofenac Sod 1% Gel 100 Gm Tube) 4 gm EXT QID [facility]; Protocol Stop: 12/28/22 08:59 Last Admin: 11/28/22 13:35 Dose: 4 gm Docusate Sodium (Docusate Sodium 100 Mg Cap) 100 mg PO BID [facility] Stop: 01/02/23 09:59 Last Admin: 11/28/22 09:54 Dose: 100 mg Empagliflozin (Empagliflozin 10 Mg Tab) 10 mg PO [facility] Stop: 01/02/23 12:29 Last Admin: 11/28/22 09:54 Dose: 10 mg Enoxaparin Sodium (Enoxaparin Inj 40 Mg/0.4 Ml Syr) 40 mg SQ [facility] Stop: 12/17/22 08:59 Last Admin: 11/28/22 09:53 Dose: 40 mg Folic Acid (Folic Acid 1 Mg Tab) 1 mg PO [facility] Stop: 01/02/23 08:59 Last Admin: 11/28/22 09:54 Dose: 1 mg Glucagon (Glucagon For Inj 1 Mg Vial) 1 mg IM UD PRN; Protocol PRN Reason: Hypoglycemia Protocol Stop: 12/01/22 14:44 Glucose (Glucose 40% Gel 15 Gm Tube) 15 - 30 gm PO UD PRN; Protocol PRN Reason: Hypoglycemia Protocol Stop: 01/02/23 14:44 Glucose (Glucose 10 Tab/Tube) 4 - 8 tab PO UD PRN; Protocol PRN Reason: Hypoglycemia Protocol Stop: 01/02/23 14:44 Insulin Aspart (Insulin, Rapid-Acting Pump) 1 each N/A ACHS [facility]; Protocol Stop: 12/15/22 12:19 Last Admin: 11/28/22 13:29 Dose: 1 each Insulin Aspart (Insulin Aspart 100 Units/Ml Vial) 0 units SC PRN PRN PRN Reason: Pump Refill Use ONLY Stop: 12/15/22 12:18 Isosorbide Mononitrate (Isosorbide [place] Extended Rel 30 Mg Tabcr) 30 mg PO [facility] Stop: 01/02/23 08:59 Last Admin: 11/28/22 09:54 Dose: 30 mg Levothyroxine Sodium (Levothyroxine Sodium 25 Mcg Tablet) [facility] Stop: 01/02/23 06:29 Last Admin: 11/28/22 06:09 Dose: 25 mcg Levothyroxine Sodium (Levothyroxine Sodium 200 Mcg Tablet) 200 mcg PO DAILYBB [facility] Stop: 01/02/23 06:29 Last Admin: 11/28/22 06:10 Dose: 200 mcg Magnesium Oxide (Magnesium Oxide 400 Mg Tab) 400 mg PO QAM [facility] Stop: 01/02/23 08:59 Last Admin: 11/28/22 09:54 Dose: 400 mg Metoprolol Tartrate (Metoprolol Tartrate 25 Mg Tab) 12.5 mg PO BID [facility] Stop: 01/02/23 21:59 Last Admin: 11/28/22 09:54 Dose: 12.5 mg Miscellaneous (Carbohydrates For Hypoglycemia ) 15 - 30 gm PO UD PRN PRN Reason: Hypoglycemia Treatment Stop: 01/02/23 14:44 Multivitamins (Multivitamin Tab) [facility] [place] [facility] [place] Stop: 12/24/22 08:59 Last Admin: 11/28/22 09:55 Dose: 1 tab Oxycodone HCl (Oxycodone Hcl Ir 5 Mg Tab (Immediate Release)) 10 mg PO Q6H PRN PRN Reason: pain Stop: 01/02/23 20:19 Pantoprazole Sodium (Pantoprazole 40 Mg Tab) 40 mg PO DAILYBB [facility] Stop: 01/02/23 06:29 Last Admin: 11/28/22 06:09 Dose: 40 mg Spironolactone (Spironolactone 25 Mg Tab) [facility] [place] [facility] [place] Stop: 01/02/23 08:59 Last Admin: 11/28/22 09:55 Dose: 25 mg Topiramate (Topiramate 100 Mg Tab) [facility] [place] [facility] [place] Stop: 01/02/23 08:59 Last Admin: 11/28/22 09:55 Dose: 100 mg Topiramate (Topiramate 100 Mg Tab) 200 mg PO HS [facility] Stop: 01/02/23 20:59 Last Admin: 11/27/22 21:07 Dose: 200 mg Torsemide (Torsemide 20 Mg Tab) 20 mg PO DAILY@0700 [facility] Stop: 01/02/23 06:59 Last Admin: 11/28/22 06:09 Dose: 20 mg Torsemide (Torsemide 10 Mg Tab) 20 mg PO DAILY@1700 PRN PRN Reason: weight gain>2 lbs Stop: 01/02/23 16:59 Last Admin: 11/26/22 06:10 Dose: 20 mg
[2022-11-28] MEDS: SERTRALINE HCL 50 MG TABLET PO SCH (15:44)
--- NOTE | 2022-11-28 20:27 | Hospitalist Progress Note ---
Date of Service November 28, 2022 Assessment & Plan (1) Adjustment disorder with depressed mood: Plan: she voices severely depressed mood over her entire life situation PROLONGED institutionalized status (here, [facility], SNF, etc), not being able to see her daughter, poor sleep, etc she is already on wellbutrin 100mg qam + wellbutrin 200mg qhs she is already on topamax 100mg qam and 200mg qhs appreciate Dr Parsons's consult sertraline 25mg daily to be started (2) Acute on chronic combined systolic and diastolic CHF (congestive heart failure): Plan: Was decompensated earlier in the stay. Continues to look euvolemic. Remains on torsemide 20 mg daily and prn dose for weight gain. Continue spironolactone, metoprolol, isosorbide mononitrate, ASA, atorvastatin. Last echo - 09/2022 with EF 45-50%. (3) Fracture of distal end of right femur: Plan: Chronic nonunion of fracture. NWB to RLE. Continue PT/OT. Pain control. Cont tylenol 1gm TID. Cont oxy 10mg prn. Could consider an NSAID but I am concerned this would cause fluid retention - defer for now. Reordered voltaren gel qid. Last x-rays were 07/2022. Rechecked x-rays today - there is callus formation, but the distraction of the fracture is larger. Will re-consult ortho tomorrow. (4) Type 2 diabetes mellitus: Plan: On insulin pump with excellent readings. Most recent a1c = 7.2% in 10/2022. Cont jardiance as well. (5) SOB (shortness of breath): Plan: Earlier this stay - 2nd to acute/chronic CHF, COPD, OHS, RASHAAD. Resolved and back to baseline. Continue prn Duonebs and inhalers. Continue daily torsemide and prn torsemide in afternoon for weight gain. (6) Weakness: Plan: Related to morbid obesity and chronic R femur fx with nonunion. On oxycodone as needed and scheduled Tylenol. PT/OT as often as possible. Treat underlying depression. (7) Hypothyroidism (acquired): Plan: Continue Levothyroxine, recent increase from 200mcg daily to 225mcg in mid Oct for elevated TSH. TSH repeated on 10/22 and is now normal at 1.1. (8) CKD stage 4 due to type 2 diabetes mellitus: Plan: Baseline creatinine 1.3-1.8. Last Cr was 1.5 a few days ago. Her CrCl is low 50s c/w CKD stage 3. Repeat BMP in about a week for stability. (9) GERD (gastroesophageal reflux disease): Plan: Continue protonix (10) Anxiety: Plan: see above in #1 (11) Morbid obesity with BMI of 60.0-69.9, adult: Plan: BMI 62 (12) Tracheostomy dependence: Plan: for RASHAAD/OHS no issues at this time (13) Poor social situation: Plan: her prolonged hospital stay is due to disposition difficulties she was previously at [facility] - refuses to go back there she refuses to attend another SNF or go out of the area for placement she wishes to go home by report has a large # of hours (90 by report) approved for in-home personal care; however, finding caregivers has been severely problematic social work has contacted between 20-30 home health agencies to try and secure help to no avail further, she needs a ramp built to be able to enter her home she also needs her entryway door widened to accommodate a large wheelchair (14) DVT prophylaxis: Plan: currently lovenox 40mg daily really should be on lovenox 40mg BID Admission and Anticipated Discharge Date Admission Date: October 01, 2022 Subjective patient states she had a good visit with psych feels comfortable starting the sertraline denies any new issues overnight right knee pain - added voltaren gel is helping; added tylenol is helping still frustrated overall due to being so long in the hospital Review of Systems Review of Systems: cv - no cp pulm - no dyspnea Gi - no abd pain, no nausea/emesis Physical Exam Physical Exam: gen - morbidly obese, sitting in chair, NAD; not as tearful today neck - neck size precludes assessing for JVD; metal trach in place - clean mouth - MMM heart - RRR, s1 s2, 1/6 PIETER LSB lungs - CTA b/l, decreased BS b/l bases abd - soft NT ND BS+ ext - no edema of feet, pulses 2+ b/l psych - a/o x 3 skin - stasis changes b/l shins and legs Results & Data Results & Data ([facility]) Vital Signs (Past 12 Hours) Vital Signs Temp Pulse Pulse Resp BP Pulse Ox O2 Del Method 11/28/22 20:07 78 20 91 Room Air 11/28/22 20:03 78 18 91 Room Air 11/28/22 19:45 Room Air 11/28/22 15:28 36.6 C 72 16 121/71 93 Trach Collar 11/28/22 15:01 80 18 95 Room Air 11/28/22 10:11 Room Air Laboratory Results Laboratory Results - last 24 hr 11/28/22 11/28/22 11/28/22 08:10 12:07 17:01 POC Glucose 145 H 180 H 135 H PG Care Time/CCT Total # of Minutes Spent Total Time Spent with Patient: Total time spent is greater than 50% in coordination of care (as documented) at patient's floor/unit and/or counseling patient: Coding Level of Care Code 81490 SUB INP/OBS CARE 2/35MIN Diagnoses Adjustment disorder with depressed mood F43.21 Acute on chronic combined systolic and diastolic CHF (congestive heart failure) I50.43 Fracture of distal end of right femur S72.401A Type 2 diabetes mellitus E11.9 SOB (shortness of breath) R06.02 Weakness R53.1 Hypothyroidism (acquired) E03.9 CKD stage 4 due to type 2 diabetes mellitus E11.22; N18.4 GERD (gastroesophageal reflux disease) K21.9 Anxiety F41.9 Morbid obesity with BMI of 60.0-69.9, adult E66.01; Z68.44 Tracheostomy dependence Z93.0 Poor social situation Z65.9 DVT prophylaxis Z29.9
[2022-11-28] MEDS: ATORVASTATIN 40 MG TAB PO SCH (21:11)
[2022-11-29] MEDS: PANTOprazole 40 MG TAB PO SCH (06:14)
[2022-11-29] MEDS: ACETAMINOPHEN 500 MG TAB PO SCH ×3 (06:14→21:52)
[2022-11-29] MEDS: TORSEMIDE 20 MG TAB PO SCH (06:14)
[2022-11-29] MEDS: LEVOTHYROXINE SODIUM 25 MCG TABLET PO SCH (06:15)
[2022-11-29] MEDS: LEVOTHYROXINE SODIUM 200 MCG TABLET PO SCH (06:15)
[2022-11-29] MEDS: ENOXAPARIN INJ 40 MG/0.4 ML SYR SQ SCH ×2 (07:49→20:13)
[2022-11-29] MEDS: MULTIVITAMIN TAB PO SCH (07:50)
[2022-11-29] MEDS: MAGNESIUM OXIDE 400 MG TAB PO SCH (07:50)
[2022-11-29] MEDS: EMPAGLIFLOZIN 10 MG TAB PO SCH (07:50)
[2022-11-29] MEDS: DOCUSATE SODIUM 100 MG CAP PO SCH ×2 (07:50→20:13)
[2022-11-29] MEDS: TOPIRAMATE 100 MG TAB PO SCH ×2 (07:50→20:12)
[2022-11-29] MEDS: ISOSORBIDE MONO EXTENDED REL 30 MG TABCR PO SCH (07:50)
[2022-11-29] MEDS: FOLIC ACID 1 MG TAB PO SCH (07:51)
[2022-11-29] MEDS: METOPROLOL TARTRATE 25 MG TAB PO SCH ×2 (07:51→20:12)
[2022-11-29] MEDS: ASPIRIN 81 MG ECTAB PO SCH (07:51)
[2022-11-29] MEDS: buPROPion SR 100 MG TABCR PO SCH ×2 (07:51→20:12)
[2022-11-29] MEDS: AZITHROMYCIN 250 MG TAB PO SCH (07:51)
[2022-11-29] MEDS: SPIRONOLACTONE 25 MG TAB PO SCH (07:52)
[2022-11-29] MEDS: SERTRALINE HCL 50 MG TABLET PO SCH (07:52)
[2022-11-29] MEDS: DICLOFENAC SOD 1% GEL 100 GM TUBE EXT SCH ×4 (07:52→20:11)
[2022-11-29] MEDS: ALBUT/IPRATROP 3MG/0.5MG NEB 3 ML VIAL NEB PRN ×2 (08:02→15:28)
[2022-11-29] MEDS: INSULIN, Rapid-Acting PUMP SCH ×4 (08:48→20:42)
--- NOTE | 2022-11-29 14:06 | Orthopedic Consultation ---
Date of Service November 29, 2022 Assessment & Plan (1) Fracture of distal end of right femur: We discussed her diagnosis and treatment options at bedside. Unfortunately she has been very depressed due to the fact that she is unable to ambulate and she has been in the hospital for the past 8 months. Her fracture has been a delayed union and may eventually be classified as a nonunion. However, I do see some signs of healing compared to previous x-rays 4 months ago. I talked to her about surgery. I told her surgical procedure would require a long incision on the lateral aspect of her leg, rebreaking the fracture, inserting a rivera up through the knee into the hip. She has multiple medical comorbidities. It would be a very risky procedure, with high blood loss and a high risk of infection given her body habitus and diabetes. If it does not go well, it could lead to an amputation. She told me that she does not want any surgery with her right leg. She was she was hoping to be provided with a wheelchair. They are currently building a ramp at her house and she would like to go home with a wheelchair soon. She understands that there are no good surgical options at this point. We did discuss surgery but she declined. I do think it would be very risky. She can be touch toe weightbearing on her right leg, however she says it is painful and she would rather remain nonweightbearing for now. If you have any further questions please feel free to contact me by [facility] text or personally on my cell phone at [phone]. Thank you History of Present Illness Reason for Consultation: Right distal femur fracture. Requesting Physician: . Attending Physician: Gregory Spear Memo Sherman is a pleasant 67-year-old female who is morbidly obese. She was able to ambulate with a walker until March 2022. At that time she was admitted to [facility] with cellulitis. While up and using the bathroom at the hospital, she had a fall and fractured her right distal femur. Dr. Su with [facility] orthopedics was consulted and he recommended conservative treatment. She was then sent to [facility] at [place]. The orthopedist at [place] also recommended conservative treatment. According to the patient, she spent 4 months at [place] for her right distal femur fracture. She was then discharged to a rehab facility in [place]. She was at that facility for 2 weeks and her insurance ran out. She was then discharged home. When she came home, the family was unable to take care of her and she was brought to [facility] and admitted to the medical service. She has been at [facility] for close to 4 months. She is still having trouble ambulating on the right leg. She is still having right leg pain. Orthopedics was consulted to evaluate and treat. Allergies Allergy/AdvReac Type Severity Reaction Status Date / Time Penicillins Allergy Intermediate Hives Verified 10/01/22 19:48 amitriptyline Allergy Unknown ON EMBASSY Verified 10/01/22 19:48 OF [facility] MED LIST doxycycline Allergy Unknown ON EMBASSY Verified 10/01/22 19:48 OF [facility] MED LIST guaifenesin Allergy Unknown ON EMBASSY Verified 10/01/22 19:48 OF [facility] MED LIST metformin Allergy Unknown ON EMBASSY Verified 10/01/22 19:48 OF [facility] MED LIST phenylephrine Allergy Unknown ON EMBASSY Verified 10/01/22 19:48 OF [facility] MED LIST pseudoephedrine Allergy Unknown ON EMBASSY Verified 10/01/22 19:48 OF [facility] MED LIST tetracycline Allergy Unknown ON EMBASSY Verified 10/01/22 19:48 OF [facility] MED LIST venlafaxine [From Effexor] Allergy Unknown ON EMBASSY Verified 10/01/22 19:48 OF [facility] MED LIST gabapentin AdvReac Intermediate BECOMES Verified 10/01/22 19:48 AGGRESSIVE Home Medications Medication Instructions Recorded Confirmed Type aspirin 81 mg tablet,delayed 81 mg PO QAM 04/06/19 10/01/22 History release (Robert Low Dose Aspirin) bupropion HCl 100 mg tablet,12 hr See Rx Instructions .Route .COMPLEX 04/06/19 10/01/22 History sustained-release metoprolol tartrate 25 mg tablet 12.5 mg PO BID 04/06/19 10/01/22 History multivitamin 1 tab PO QAM 04/06/19 10/01/22 History pantoprazole 40 mg tablet,delayed 40 mg PO DAILYBB 04/06/19 10/01/22 History release spironolactone 25 mg tablet 25 mg PO QAM 04/06/19 10/01/22 History topiramate 100 mg tablet 100 mg PO BID 04/06/19 10/01/22 History Oxygen Home #1 ea 06/28/19 03/22/22 History nitroglycerin 0.4 mg sublingual 0.4 mg sublingual DIRECTED PRN 06/28/19 10/01/22 History tablet Chest Pain nebulizers #1 ea 12/24/20 10/04/22 Rx betamethasone dipropionate 0.05 % 1 applic topical BID PRN Skin 02/27/21 10/01/22 History topical cream Irritation ipratropium 0.5 mg-albuterol 3 mg 3 ml inhalation Q4H PRN COUGHING, 02/27/21 10/01/22 History (2.5 mg base)/3 mL nebulization WHEEZING, SHORTNESS OF BREATH soln folic acid 1 mg tablet 1 mg PO QAM #0 tabs 04/19/21 10/01/22 Rx blood sugar diagnostic (Contour #300 ea 09/29/21 10/04/22 Rx Next Test Strips) albuterol sulfate 90 mcg/actuation 2 puff inhalation Q4 PRN Shortness 11/25/21 10/01/22 History aerosol inhaler Of Breath atorvastatin 40 mg tablet 40 mg PO QPM #90 tabs 01/14/22 10/01/22 Rx acetaminophen 500 mg tablet 500 mg PO QPM 03/23/22 10/01/22 History (Tylenol Extra Strength) acidophilus 100 million 1 cap PO QAM 03/23/22 10/01/22 History cell-pectin, citrus 10 mg capsule torsemide 10 mg tablet 10 mg PO BID 07/24/22 10/01/22 History insulin glargine 100 unit/mL (3 80 unit (0.8 mL) subcut BID #48 mL 09/07/22 10/01/22 Rx mL) subcutaneous pen isosorbide mononitrate 30 mg 30 mg PO QAM #30 tabs 09/07/22 10/01/22 Rx tablet,extended release 24 hr oxycodone 5 mg tablet 10 mg PO Q8H PRN pain #10 tabs 09/07/22 10/01/22 Rx acetaminophen 325 mg tablet 650 mg PO Q6H PRN FEVER/PAIN 10/01/22 10/01/22 History (Tylenol) docusate sodium 100 mg capsule 100 mg PO BID 10/01/22 10/01/22 History insulin lispro 100 unit/mL 1 sliding scale dose subcut 10/01/22 10/01/22 History subcutaneous pen (Humalog KwikPen USEASDIRECTD (U-100) Insulin) ipratropium 20 mcg-albuterol 100 1 puff inhalation QID 10/01/22 10/01/22 History mcg/actuation mist for inhalation (Combivent Respimat) levothyroxine 200 mcg tablet 200 mcg PO DAILYBB 10/01/22 10/01/22 History levothyroxine 25 mcg tablet 25 mcg PO DAILYBB 10/01/22 10/01/22 History magnesium oxide 400 mg PO QAM 10/01/22 10/01/22 History potassium chloride 20 mEq 20 meq PO BID 10/01/22 10/01/22 History tablet,extended release sulfamethoxazole 800 1 tab PO BID 10/01/22 10/01/22 History mg-trimethoprim 160 mg tablet (Bactrim DS) Past Med/Surg History Medical History Ambulatory dysfunction Breathlessness Chest pain CHF (congestive heart failure) CKD stage 4 due to type 2 diabetes mellitus Dyslipidemia Fluid overload HTN (hypertension) Insulin-requiring or dependent type II diabetes mellitus MRSA (methicillin resistant staph aureus) culture positive "sputum 11/2015" Right ventricular dysfunction Sepsis Surgical History History of appendectomy History of cholecystectomy History of hysterectomy History of tonsillectomy and adenoidectomy S/P IVC filter Family History Mother Coronary heart disease COPD (chronic obstructive pulmonary disease) Father Suicide Hung himself. Pt found him. Unknown Lung cancer Social History Smoking Status: Never smoker Tobacco Type: Cigarettes Second Hand Exposure: No; Hx Alcohol Use: No Hx Substance Use: No Preferred Language: Belarusian Communication Ability: Effective Visual Impairment: Limited Epitaxial Reactor Technician Required: No Beliefs That Will Affect Care: None marital status: Current Living Situation: Long Term Current Living Situation Comment: came from [facility] doesn't want to go back current occupational status: disabled How many Children do You have: 1 Other Information That Helps Us Care for You: No Feels Safe at Home: Yes Safety Concerns: Feels Safe At This Time Assistive Devices: Bedside Commode, Hospital Bed, Oxygen - at Night, Walker, Wheelchair and Other Assistive Devices Comment: suction machine, trach supplies Review of Systems All systems reviewed & are unremarkable except as noted in HPI & below. Physical Exam On physical examination the right leg, she is sitting comfortably in a chair. I can do some gentle range of motion of her knee. She does have tenderness to palpation along the area of the distal femur. She has poor skin quality in the area.. Constitutional WD/WN, vitals as above Eyes PERRL, conjunctivae normal, anicteric sclerae ENMT external ear and nose normal, oropharynx normal Neck trachea midline, no thyromegaly Respiratory normal respiratory effort, lungs clear to auscultation Cardiovascular RRR, no murmur, no edema Gastrointestinal (Abdomen) normal bowel sounds, soft, nontender, no hepatosplenomegaly Skin no rashes, warm and dry Psychiatric A+Ox3, euthymic affect Results & Data Results & Data Laboratory Results . Diagnostic Findings X-rays of the right knee were reviewed. There has been a little bit of displacement of the fracture over the past 4 months. There is improving callus formation. It still not fully healed. She has some osteoarthritis of the right knee as well.. PG Care Time/CCT Total # of Minutes Spent Total Time Spent with Patient: Total time spent is greater than 50% in coordination of care (as documented) at patient's floor/unit and/or counseling patient: Coding Level of Care Code INP/OBS CONSULT LVL 4, 60 MIN Diagnoses Fracture of distal end of right femur S72.401A
[2022-11-29] MEDS: oxyCODONE HCL IR 5 MG TAB (IMMEDIATE RELEASE) PO PRN (19:33)
[2022-11-29] MEDS: ATORVASTATIN 40 MG TAB PO SCH (20:13)
--- NOTE | 2022-11-29 20:58 | Hospitalist Progress Note ---
Date of Service November 29, 2022 Assessment & Plan (1) Adjustment disorder with depressed mood: Plan: depressed due to PROLONGED institutionalized status (here, [facility], SNF, etc), not being able to see her daughter, poor sleep, etc she is already on wellbutrin 100mg qam + wellbutrin 200mg qhs she is already on topamax 100mg qam and 200mg qhs appreciate Dr Parsons's consult sertraline 25mg daily initiated previous TSH, B12, 25-OH vit D levels -- all wnl (2) Acute on chronic combined systolic and diastolic CHF (congestive heart failure): Plan: Was decompensated earlier in the stay. Continues to look euvolemic. Remains on torsemide 20 mg daily and prn dose for weight gain. Continue spironolactone, metoprolol, isosorbide mononitrate, ASA, atorvastatin. Last echo - 09/2022 with EF 45-50%. (3) Fracture of distal end of right femur: Plan: Chronic nonunion of fracture. Appreciate ortho re-consult. x-rays from yesterday reviewed. some callus formation over fracture site. Dr Contreras met with patient -- reviewed films, discussed options for care, etc. Cont nonoperative management. TTWB allowed by Dr Contreras. Cont tylenol 1gm TID. Cont oxy 10mg prn. Could consider an NSAID but I am concerned this would cause fluid retention - defer for now. Reordered voltaren gel qid. (4) Type 2 diabetes mellitus: Plan: On insulin pump with excellent readings. Most recent a1c = 7.2% in 10/2022. Cont jardiance as well. (5) SOB (shortness of breath): Plan: Earlier this stay - 2nd to acute/chronic CHF, COPD, OHS, RASHAAD. Resolved. Continue prn Duonebs and inhalers. Continue daily torsemide and prn torsemide in afternoon for weight gain. (6) Weakness: Plan: Related to morbid obesity and chronic R femur fx with nonunion. On oxycodone as needed and scheduled Tylenol. PT/OT as often as possible. Treat underlying depression. (7) Hypothyroidism (acquired): Plan: Continue Levothyroxine, recent increase from 200mcg daily to 225mcg in mid Oct for elevated TSH. TSH repeated on 12/2 and is now normal at 1.1. (8) CKD stage 4 due to type 2 diabetes mellitus: Plan: Baseline creatinine 1.3-1.8. Last Cr was 1.5 a few days ago. Her CrCl is low 50s c/w CKD stage 3. Repeat BMP in about a week for stability. (9) GERD (gastroesophageal reflux disease): Plan: Continue protonix (10) Anxiety: Plan: see above in #1 (11) Morbid obesity with BMI of 60.0-69.9, adult: Plan: BMI 62 (12) Tracheostomy dependence: Plan: for RASAHAD/OHS no issues at this time (13) Poor social situation: Plan: her prolonged hospital stay is due to disposition difficulties she was previously at [facility] - refuses to go back there she refuses to attend another SNF or go out of the area for placement she wishes to go home by report has a large # of hours (90 by report) approved for in-home personal care; however, finding caregivers has been severely problematic social work has contacted between 20-30 home health agencies to try and secure help to no avail further, she needs a ramp built to be able to enter her home she also needs her entryway door widened to accommodate a large wheelchair patient reports that her daughter received a call that a local agency may be able to provide caregivers?? will need to substantiate this with case management will need to investigate what methods/resources are available to build or acquire a ramp for her home (has 2 steps), widen the entry way, etc. (14) DVT prophylaxis: Plan: currently lovenox 40mg daily really should be on lovenox 40mg BID due to extreme morbid obesity -- dose changed today Admission and Anticipated Discharge Date Admission Date: October 01, 2022 Subjective patient without any new complaints she had a long discussion today with orthopedics regarding her right femur fracture ortho reviewed most recent x-rays; there is some callus formation advised against surgery they did allow toe-touch WB to the RLE if desired by patient she reports that her daughter received a call from a nursing/caregiver agency apparently this agency (uncertain of name) may be able to accommodate her needs if she is able to return home ? if this is true Mrs Connelly is VERY excited about this potential good news Review of Systems Review of Systems: cv - no chest pain pulm - no dyspnea GI - no abd pain musculo - right knee pain stable Physical Exam Physical Exam: gen - morbidly obese, laying in bed comfortably neck - metal trach in place - clean, no purulent drainage mouth - MMM heart - RRR, s1 s2, 1/6 PIETER LSB lungs - CTA b/l, decreased BS b/l bases abd - soft NT ND BS+ ext - no edema of feet, pulses 2+ b/l psych - a/o x 3 skin - stasis changes b/l shins and legs Results & Data Results & Data ([facility]) Vital Signs (Past 12 Hours) Vital Signs Temp Pulse Resp BP Pulse Ox O2 Del Method 11/29/22 20:00 84 24 92 Room Air 11/29/22 15:50 36.8 C 85 20 114/67 92 Room Air 11/29/22 15:28 80 18 94 Room Air Laboratory Results Laboratory Results - last 24 hr 11/29/22 11/29/22 11/29/22 08:17 12:06 17:23 POC Glucose 89 144 H 257 H 11/29/22 20:32 POC Glucose 145 H PG Care Time/CCT Total # of Minutes Spent Total Time Spent with Patient: Total time spent is greater than 50% in coordination of care (as documented) at patient's floor/unit and/or counseling patient: Coding Level of Care Code 35079 SUB INP/OBS CARE 2/35MIN Diagnoses Adjustment disorder with depressed mood F43.21 Acute on chronic combined systolic and diastolic CHF (congestive heart failure) I50.43 Fracture of distal end of right femur S72.401A Type 2 diabetes mellitus E11.9 SOB (shortness of breath) R06.02 Weakness R53.1 Hypothyroidism (acquired) E03.9 CKD stage 4 due to type 2 diabetes mellitus E11.22; N18.4 GERD (gastroesophageal reflux disease) K21.9 Anxiety F41.9 Morbid obesity with BMI of 60.0-69.9, adult E66.01; Z68.44 Tracheostomy dependence Z93.0 Poor social situation Z65.9 DVT prophylaxis Z29.9
[2022-11-30] MEDS: LEVOTHYROXINE SODIUM 200 MCG TABLET PO SCH (06:04)
[2022-11-30] MEDS: TORSEMIDE 20 MG TAB PO SCH (06:04)
[2022-11-30] MEDS: PANTOprazole 40 MG TAB PO SCH (06:04)
[2022-11-30] MEDS: ACETAMINOPHEN 500 MG TAB PO SCH ×3 (06:04→21:34)
[2022-11-30] MEDS: LEVOTHYROXINE SODIUM 25 MCG TABLET PO SCH (06:04)
[2022-11-30] MEDS: ALBUT/IPRATROP 3MG/0.5MG NEB 3 ML VIAL NEB PRN ×2 (07:25→15:44)
[2022-11-30] MEDS: INSULIN, Rapid-Acting PUMP SCH ×4 (09:14→21:39)
[2022-11-30] MEDS: TOPIRAMATE 100 MG TAB PO SCH ×2 (09:15→21:36)
[2022-11-30] MEDS: METOPROLOL TARTRATE 25 MG TAB PO SCH ×2 (09:15→21:35)
[2022-11-30] MEDS: MULTIVITAMIN TAB PO SCH (09:15)
[2022-11-30] MEDS: SERTRALINE HCL 50 MG TABLET PO SCH (09:16)
[2022-11-30] MEDS: FOLIC ACID 1 MG TAB PO SCH (09:17)
[2022-11-30] MEDS: MAGNESIUM OXIDE 400 MG TAB PO SCH (09:17)
[2022-11-30] MEDS: buPROPion SR 100 MG TABCR PO SCH ×2 (09:17→21:37)
[2022-11-30] MEDS: DICLOFENAC SOD 1% GEL 100 GM TUBE EXT SCH ×4 (09:18→21:32)
[2022-11-30] MEDS: ISOSORBIDE MONO EXTENDED REL 30 MG TABCR PO SCH (09:18)
[2022-11-30] MEDS: DOCUSATE SODIUM 100 MG CAP PO SCH ×2 (09:18→21:36)
[2022-11-30] MEDS: ASPIRIN 81 MG ECTAB PO SCH (09:18)
[2022-11-30] MEDS: EMPAGLIFLOZIN 10 MG TAB PO SCH (09:19)
[2022-11-30] MEDS: ENOXAPARIN INJ 40 MG/0.4 ML SYR SQ SCH ×2 (09:19→21:34)
[2022-11-30] MEDS: SPIRONOLACTONE 25 MG TAB PO SCH (09:19)
[2022-11-30 09:46] LABS: Creatinine Clr Calc Pharmacy 48.1 ml/min; Est GFR (African American) 36.6 ml/min; Est GFR (Non-African American) 31.6 ml/min
--- NOTE | 2022-11-30 16:43 | Hospitalist Progress Note ---
Date of Service November 30, 2022 Assessment & Plan (1) Adjustment disorder with depressed mood: Plan: depressed due to PROLONGED institutionalized status (here, [facility], SNF, etc), not being able to see her daughter, poor sleep, etc she is already on wellbutrin 100mg qam + wellbutrin 200mg qhs she is already on topamax 100mg qam and 200mg qhs appreciate Dr Parsons's consult sertraline 25mg daily initiated, tolerating well so far previous TSH, B12, 25-OH vit D levels -- all wnl but will check another Vit D level as the last was 35 in 07/2022 (2) Acute on chronic combined systolic and diastolic CHF (congestive heart failure): Plan: Was decompensated earlier in the stay. Continues to look euvolemic. Remains on torsemide 20 mg daily and prn dose for weight gain. Continue spironolactone, metoprolol, isosorbide mononitrate, ASA, atorvastatin. Last echo - 09/2022 with EF 45-50%. (3) Fracture of distal end of right femur: Plan: Chronic nonunion of fracture. Appreciate ortho re-consult. x-rays from yesterday reviewed. some callus formation over fracture site. Dr Contreras met with patient -- reviewed films, discussed options for care, etc. Cont nonoperative management. TTWB allowed by Dr Contreras. Cont tylenol 1gm TID. Cont oxy 10mg prn. Could consider an NSAID but I am concerned this would cause fluid retention - defer for now. Reordered voltaren gel qid. (4) Type 2 diabetes mellitus: Plan: On insulin pump with excellent readings. Most recent a1c = 7.2% in 10/2022. Cont jardiance as well. (5) SOB (shortness of breath): Plan: Earlier this stay - 2nd to acute/chronic CHF, COPD, OHS, RASHAAD. Resolved. Continue prn Duonebs and inhalers. Continue daily torsemide and prn torsemide in afternoon for weight gain. (6) Weakness: Plan: Related to morbid obesity and chronic R femur fx with nonunion. On oxycodone as needed and scheduled Tylenol. PT/OT as often as possible. Treat underlying depression. (7) Hypothyroidism (acquired): Plan: Continue Levothyroxine, recent increase from 200mcg daily to 225mcg in mid Oct for elevated TSH. TSH repeated on 10/22 and is now normal at 1.1. (8) CKD stage 4 due to type 2 diabetes mellitus: Plan: Baseline creatinine 1.3-1.8. Last Cr was 1.6 on 11/30/22 Her CrCl is low 50s c/w CKD stage 3. Repeat BMP in one month (9) GERD (gastroesophageal reflux disease): Plan: Continue protonix (10) Anxiety: Plan: see above (11) Morbid obesity with BMI of 60.0-69.9, adult: Plan: BMI 62 (12) Tracheostomy dependence: Plan: for RASHAAD/OHS no issues at this time (13) Poor social situation: Plan: her prolonged hospital stay is due to disposition difficulties she was previously at [facility] - refuses to go back there she refuses to attend another SNF or go out of the area for placement she wishes to go home by report has a large # of hours (90 by report) approved for in-home personal care; however, finding caregivers has been severely problematic social work has contacted between 20-30 home health agencies to try and secure help to no avail further, she needs a ramp built to be able to enter her home she also needs her entryway door widened to accommodate a large wheelchair patient reports that her daughter received a call that a local agency may be able to provide caregivers?? will need to substantiate this with case management will need to investigate what methods/resources are available to build or acquire a ramp for her home (has 2 steps), widen the entry way, etc. (14) DVT prophylaxis: Plan: lovenox 40mg BID due to extreme morbid obesity Admission and Anticipated Discharge Date Admission Date: October 01, 2022 Subjective No new complaints. Moving bowels, eating, no SOB. Review of Systems Review of Systems: All systems reviewed & are unremarkable except as noted in HPI & below Physical Exam Constitutional: WD/WN, vitals as above Eyes: + anicteric sclerae Neck: trachea midline, no thyromegaly + abnormal visual inspection (trach in place) Respiratory: normal respiratory effort, lungs clear to auscultation normal respiratory effort Cardiovascular: RRR, no murmur, no edema Gastrointestinal (Abdomen): normal bowel sounds, soft, nontender, no hepatosplenomegaly Musculoskeletal: Extremities: extremities normal to inspection; no cyanosis and no clubbing Skin: no rashes, warm and dry Neurologic: moves all extremities and awake; no focal motor deficits Psychiatric: A+Ox3, euthymic affect Results & Data Results & Data ([facility]) Vital Signs (Past 12 Hours) Vital Signs Temp Pulse Resp BP Pulse Ox O2 Del Method 11/30/22 15:53 37.1 C 80 22 132/76 94 Room Air 11/30/22 15:44 81 22 94 Room Air 11/30/22 07:40 Room Air 11/30/22 07:26 67 18 95 Room Air 11/30/22 07:18 37.0 C 70 20 125/65 96 Room Air Laboratory Results 11/30/22 11/30/22 11/30/22 Range/Units 12:23 08:25 08:21 Creatinine 1.67 H (0.6-1.2) mg/dl Est Cr Clr Drug Dosing 48.1 ml/min Est GFR ( Amer) 36.6 ml/min Est GFR (Non-Af Amer) 31.6 ml/min POC Glucose 121 H 94 (70-99) mg/dl 11/29/22 11/29/22 Range/Units 20:32 17:23 Creatinine (0.6-1.2) mg/dl Est Cr Clr Drug Dosing ml/min Est GFR ( Amer) ml/min Est GFR (Non-Af Amer) ml/min POC Glucose 145 H 257 H (70-99) mg/dl PG Care Time/CCT Total # of Minutes Spent Total Time Spent with Patient: Total time spent is greater than 50% in coordination of care (as documented) at patient's floor/unit and/or counseling patient: Coding Level of Care Code 40786 SUB INP/OBS CARE 12/15MIN Diagnoses Adjustment disorder with depressed mood F43.21 Acute on chronic combined systolic and diastolic CHF (congestive heart failure) I50.43 Fracture of distal end of right femur S72.401A Type 2 diabetes mellitus E11.9 SOB (shortness of breath) R06.02 Weakness R53.1 Hypothyroidism (acquired) E03.9 CKD stage 4 due to type 2 diabetes mellitus E11.22; N18.4 GERD (gastroesophageal reflux disease) K21.9 Anxiety F41.9 Morbid obesity with BMI of 60.0-69.9, adult E66.01; Z68.44 Tracheostomy dependence Z93.0 Poor social situation Z65.9 DVT prophylaxis Z29.9
[2022-11-30] MEDS: ATORVASTATIN 40 MG TAB PO SCH (21:37)
[2022-12-01] MEDS: LEVOTHYROXINE SODIUM 200 MCG TABLET PO SCH (06:12)
[2022-12-01] MEDS: ACETAMINOPHEN 500 MG TAB PO SCH ×3 (06:12→22:00)
[2022-12-01] MEDS: LEVOTHYROXINE SODIUM 25 MCG TABLET PO SCH (06:13)
[2022-12-01] MEDS: TORSEMIDE 20 MG TAB PO SCH (06:13)
[2022-12-01] MEDS: PANTOprazole 40 MG TAB PO SCH (06:13)
[2022-12-01] MEDS: ALBUT/IPRATROP 3MG/0.5MG NEB 3 ML VIAL NEB PRN ×2 (07:25→15:36)
[2022-12-01] MEDS: ASPIRIN 81 MG ECTAB PO SCH (08:24)
[2022-12-01] MEDS: buPROPion SR 100 MG TABCR PO SCH ×2 (08:24→22:35)
[2022-12-01] MEDS: ISOSORBIDE MONO EXTENDED REL 30 MG TABCR PO SCH (08:24)
[2022-12-01] MEDS: DICLOFENAC SOD 1% GEL 100 GM TUBE EXT SCH ×4 (08:24→21:51)
[2022-12-01] MEDS: EMPAGLIFLOZIN 10 MG TAB PO SCH (08:24)
[2022-12-01] MEDS: FOLIC ACID 1 MG TAB PO SCH (08:24)
[2022-12-01] MEDS: AZITHROMYCIN 250 MG TAB PO SCH (08:24)
[2022-12-01] MEDS: MAGNESIUM OXIDE 400 MG TAB PO SCH (08:25)
[2022-12-01] MEDS: SERTRALINE HCL 50 MG TABLET PO SCH (08:25)
[2022-12-01] MEDS: SPIRONOLACTONE 25 MG TAB PO SCH (08:26)
[2022-12-01] MEDS: METOPROLOL TARTRATE 25 MG TAB PO SCH ×2 (08:26→21:59)
[2022-12-01] MEDS: TOPIRAMATE 100 MG TAB PO SCH ×2 (08:26→21:57)
[2022-12-01] MEDS: DOCUSATE SODIUM 100 MG CAP PO SCH ×2 (08:26→21:58)
[2022-12-01] MEDS: MULTIVITAMIN TAB PO SCH (08:26)
[2022-12-01] MEDS: ENOXAPARIN INJ 40 MG/0.4 ML SYR SQ SCH ×2 (08:27→21:55)
[2022-12-01] MEDS: INSULIN, Rapid-Acting PUMP SCH ×4 (09:30→21:51)
--- NOTE | 2022-12-01 14:01 | Hospitalist Progress Note ---
Date of Service December 01, 2022 Assessment & Plan (1) Adjustment disorder with depressed mood: Plan: depressed due to PROLONGED institutionalized status (here, [facility], SNF, etc), not being able to see her daughter, poor sleep, etc she is already on wellbutrin 100mg qam + wellbutrin 200mg qhs she is already on topamax 100mg qam and 200mg qhs appreciate Dr Parsons's consult sertraline 25mg daily initiated, tolerating well so far previous TSH, B12, 25-OH vit D levels -- all wnl but will check another Vit D level as the last was 35 in 07/2022--> now down to 28--> start Vit D supplement (2) Acute on chronic combined systolic and diastolic CHF (congestive heart failure): Plan: Was decompensated earlier in the stay. Continues to look euvolemic. Remains on torsemide 20 mg daily and prn dose for weight gain. Continue spironolactone, metoprolol, isosorbide mononitrate, ASA, atorvastatin. Last echo - 09/2022 with EF 45-50%. (3) Vitamin D deficiency: Plan: Vit D level now down to 28 after being inside for the last 8-9 months start Vit D 1000 units qAM (4) Fracture of distal end of right femur: Plan: Chronic nonunion of fracture. Appreciate ortho re-consult. x-rays from yesterday reviewed. some callus formation over fracture site. Dr Contreras met with patient -- reviewed films, discussed options for care, etc. Cont nonoperative management. TTWB allowed by Dr Contreras but causes her pain currently Cont tylenol 1gm TID. Cont oxy 10mg prn. Could consider an NSAID but I am concerned this would cause fluid retention - defer for now. continue voltaren gel qid. (5) Type 2 diabetes mellitus: Plan: On insulin pump with excellent readings. Most recent a1c = 7.2% in 10/2022. Cont jardiance as well. (6) SOB (shortness of breath): Plan: Earlier this stay - 2nd to acute/chronic CHF, COPD, OHS, RASHAAD. Resolved. Continue prn Duonebs and inhalers. Continue daily torsemide and prn torsemide in afternoon for weight gain. (7) Weakness: Plan: Related to morbid obesity and chronic R femur fx with nonunion. On oxycodone as needed and scheduled Tylenol. PT/OT as often as possible. Treat underlying depression. (8) Hypothyroidism (acquired): Plan: Continue Levothyroxine, recent increase from 200mcg daily to 225mcg in mid Oct for elevated TSH. TSH repeated on 10/22 and is now normal at 1.1. (9) CKD stage 4 due to type 2 diabetes mellitus: Plan: Baseline creatinine 1.3-1.8. Last Cr was 1.6 on 11/30/22 Her CrCl is low 50s c/w CKD stage 3. Repeat BMP in one month (10) GERD (gastroesophageal reflux disease): Plan: Continue protonix (11) Anxiety: Plan: see above (12) Morbid obesity with BMI of 60.0-69.9, adult: Plan: BMI 62 (13) Tracheostomy dependence: Plan: for RASHAAD/OHS no issues at this time (14) Poor social situation: Plan: her prolonged hospital stay is due to disposition difficulties she was previously at [facility] - refuses to go back there she refuses to attend another SNF or go out of the area for placement she wishes to go home by report has a large # of hours (90 by report) approved for in-home personal care; however, finding caregivers has been severely problematic social work has contacted between 20-30 home health agencies to try and secure help to no avail further, she needs a ramp built to be able to enter her home she also needs her entryway door widened to accommodate a large wheelchair patient reports that her daughter received a call that a local agency may be able to provide caregivers?? will need to substantiate this with case management will need to investigate what methods/resources are available to build or acquire a ramp for her home (has 2 steps), widen the entry way, etc. Plan DVT prophylaxis-lovenox 40mg BID due to extreme morbid obesity Dispo-continued stay, awaiting caregivers Admission and Anticipated Discharge Date Admission Date: October 01, 2022 Subjective Has some pain in right thigh. Eating and drinking, no SOB. Is OOB to chair. Review of Systems Review of Systems: All systems reviewed & are unremarkable except as noted in HPI & below Physical Exam Constitutional: WD/WN, vitals as above Eyes: + anicteric sclerae Neck: trachea midline, no thyromegaly + abnormal visual inspection (trach in place) Respiratory: normal respiratory effort, lungs clear to auscultation normal respiratory effort Cardiovascular: RRR, no murmur, no edema Gastrointestinal (Abdomen): normal bowel sounds, soft, nontender, no hepatosplenomegaly Musculoskeletal: Extremities: extremities normal to inspection; no cyanosis and no clubbing Skin: no rashes, warm and dry Neurologic: moves all extremities and awake; no focal motor deficits Psychiatric: A+Ox3, euthymic affect Results & Data Results & Data ([facility]) Vital Signs (Past 12 Hours) Vital Signs Temp Pulse Resp BP Pulse Ox O2 Del Method 12/01/22 07:46 36.7 C 70 18 127/73 92 Room Air 12/01/22 07:26 66 18 95 Room Air Laboratory Results 12/01/22 12/01/22 12/01/22 Range/Units 11:54 08:14 07:18 POC Glucose 147 H 108 H (70-99) mg/dl 25-OH Vitamin D Total 28.1 L (30-100) ng/ml 11/30/22 11/30/22 Range/Units 20:41 17:23 POC Glucose 168 H 210 H (70-99) mg/dl 25-OH Vitamin D Total (30-100) ng/ml PG Care Time/CCT Total # of Minutes Spent Total Time Spent with Patient: Total time spent is greater than 50% in coordination of care (as documented) at patient's floor/unit and/or counseling patient: Coding Level of Care Code 82687 SUB INP/OBS CARE 12/15MIN Diagnoses Adjustment disorder with depressed mood F43.21 Acute on chronic combined systolic and diastolic CHF (congestive heart failure) I50.43 Vitamin D deficiency E55.9 Fracture of distal end of right femur S72.401A Type 2 diabetes mellitus E11.9 SOB (shortness of breath) R06.02 Weakness R53.1 Hypothyroidism (acquired) E03.9 CKD stage 4 due to type 2 diabetes mellitus E11.22; N18.4 GERD (gastroesophageal reflux disease) K21.9 Anxiety F41.9 Morbid obesity with BMI of 60.0-69.9, adult E66.01; Z68.44 Tracheostomy dependence Z93.0 Poor social situation Z65.9
[2022-12-01] MEDS: CHOLECALCIFEROL 1,000 UNITS 25 MCG TAB PO SCH (15:11)
[2022-12-01] MEDS: ATORVASTATIN 40 MG TAB PO SCH (22:00)
[2022-12-01] MEDS: oxyCODONE HCL IR 5 MG TAB (IMMEDIATE RELEASE) PO PRN (22:35)
[2022-12-02] MEDS: TORSEMIDE 20 MG TAB PO SCH (06:18)
[2022-12-02] MEDS: LEVOTHYROXINE SODIUM 200 MCG TABLET PO SCH (06:18)
[2022-12-02] MEDS: PANTOprazole 40 MG TAB PO SCH (06:18)
[2022-12-02] MEDS: ACETAMINOPHEN 500 MG TAB PO SCH ×3 (06:19→21:18)
[2022-12-02] MEDS: LEVOTHYROXINE SODIUM 25 MCG TABLET PO SCH (06:19)
[2022-12-02] MEDS: ALBUT/IPRATROP 3MG/0.5MG NEB 3 ML VIAL NEB PRN ×2 (07:47→14:28)
[2022-12-02 09:08] LABS: Creatinine Clr Calc Pharmacy 53.9 ml/min; Est GFR (Non-African American) 36.2 ml/min
[2022-12-02] MEDS: ASPIRIN 81 MG ECTAB PO SCH (09:33)
[2022-12-02] MEDS: MULTIVITAMIN TAB PO SCH (09:33)
[2022-12-02] MEDS: FOLIC ACID 1 MG TAB PO SCH (09:33)
[2022-12-02] MEDS: MAGNESIUM OXIDE 400 MG TAB PO SCH (09:33)
[2022-12-02] MEDS: ISOSORBIDE MONO EXTENDED REL 30 MG TABCR PO SCH (09:33)
[2022-12-02] MEDS: TOPIRAMATE 100 MG TAB PO SCH ×2 (09:33→21:19)
[2022-12-02] MEDS: buPROPion SR 100 MG TABCR PO SCH ×2 (09:34→21:20)
[2022-12-02] MEDS: SPIRONOLACTONE 25 MG TAB PO SCH (09:34)
[2022-12-02] MEDS: SERTRALINE HCL 50 MG TABLET PO SCH (09:34)
[2022-12-02] MEDS: EMPAGLIFLOZIN 10 MG TAB PO SCH (09:34)
[2022-12-02] MEDS: ENOXAPARIN INJ 40 MG/0.4 ML SYR SQ SCH ×2 (09:35→21:19)
[2022-12-02] MEDS: METOPROLOL TARTRATE 25 MG TAB PO SCH ×2 (09:35→21:18)
[2022-12-02] MEDS: DOCUSATE SODIUM 100 MG CAP PO SCH ×2 (09:36→21:19)
[2022-12-02] MEDS: DICLOFENAC SOD 1% GEL 100 GM TUBE EXT SCH ×4 (09:37→21:20)
[2022-12-02] MEDS: INSULIN, Rapid-Acting PUMP SCH ×4 (10:13→21:20)
[2022-12-02] MEDS: CHOLECALCIFEROL 1,000 UNITS 25 MCG TAB PO SCH (10:18)
--- NOTE | 2022-12-02 18:00 | Hospitalist Progress Note ---
Date of Service December 02, 2022 Assessment & Plan (1) Adjustment disorder with depressed mood: Plan: depressed due to PROLONGED institutionalized status (here, [facility], SNF, etc), not being able to see her daughter, poor sleep, etc she is already on wellbutrin 100mg qam + wellbutrin 200mg qhs she is already on topamax 100mg qam and 200mg qhs appreciate Dr Parsons's consult sertraline 25mg daily initiated, tolerating well so far previous TSH, B12, 25-OH vit D levels -- all wnl but will check another Vit D level as the last was 35 in 07/2022--> now down to 28--> start Vit D supplement (2) Acute on chronic combined systolic and diastolic CHF (congestive heart failure): Plan: Was decompensated earlier in the stay. Continues to look euvolemic. Remains on torsemide 20 mg daily and prn dose for weight gain. Continue spironolactone, metoprolol, isosorbide mononitrate, ASA, atorvastatin. Last echo - 09/2022 with EF 45-50%. (3) Vitamin D deficiency: Plan: Vit D level now down to 28 after being inside for the last 8-9 months started Vit D 1000 units qAM (4) Fracture of distal end of right femur: Plan: Chronic nonunion of fracture. Appreciate ortho re-consult. x-rays from yesterday reviewed. some callus formation over fracture site. Dr Contreras met with patient -- reviewed films, discussed options for care, etc. Cont nonoperative management. TTWB allowed by Dr Contreras but causes her pain currently Cont tylenol 1gm TID. Cont oxy 10mg prn. Could consider an NSAID but I am concerned this would cause fluid retention - defer for now. continue voltaren gel qid. -added on Vit D and now will add calcium (5) Type 2 diabetes mellitus: Plan: On insulin pump with excellent readings. Basal 5.5 units/hr, CR 1.8 CF 10 Had borderline hypoglycemia on AM of 12/02, corrected with OJ Most recent a1c = 7.2% in 10/2022. Cont jardiance as well. (6) SOB (shortness of breath): Plan: Earlier this stay - 2nd to acute/chronic CHF, COPD, OHS, RASHAAD. Resolved. Continue prn Duonebs and inhalers. Continue daily torsemide and prn torsemide in afternoon for weight gain. (7) Weakness: Plan: Related to morbid obesity and chronic R femur fx with nonunion. On oxycodone as needed and scheduled Tylenol. PT/OT as often as possible. Treat underlying depression. (8) Hypothyroidism (acquired): Plan: Continue Levothyroxine, recent increase from 200mcg daily to 225mcg in mid Oct for elevated TSH. TSH repeated on 10/22 and is now normal at 1.1. (9) CKD stage 4 due to type 2 diabetes mellitus: Plan: Baseline creatinine 1.3-1.8. Last Cr was 1.6 on 11/30/22 Her CrCl is low 50s c/w CKD stage 3. Repeat BMP in one month (10) GERD (gastroesophageal reflux disease): Plan: Continue protonix (11) Anxiety: Plan: see above (12) Morbid obesity with BMI of 60.0-69.9, adult: Plan: BMI 62 (13) Tracheostomy dependence: Plan: for RASHAAD/OHS no issues at this time (14) Poor social situation: Plan: her prolonged hospital stay is due to disposition difficulties she was previously at [facility] - refuses to go back there she refuses to attend another SNF or go out of the area for placement she wishes to go home by report has a large # of hours (90 by report) approved for in-home personal care; however, finding caregivers has been severely problematic social work has contacted between 20-30 home health agencies to try and secure help to no avail further, she needs a ramp built to be able to enter her home she also needs her entryway door widened to accommodate a large wheelchair patient reports that her daughter received a call that a local agency may be able to provide caregivers?? will need to substantiate this with case management will need to investigate what methods/resources are available to build or acquire a ramp for her home (has 2 steps), widen the entry way, etc. Plan DVT prophylaxis-lovenox 40mg BID due to extreme morbid obesity Dispo-continued stay, awaiting caregivers Admission and Anticipated Discharge Date Admission Date: October 01, 2022 Subjective Pt asking if she should be on calcium in addition to her vitamin D. She then had difficulty with swallowing her drink while she tried to talk to me before swallowing. It took her a few minutes to regurgitate the fluid but did not appear hypoxic. Was able to breathe through her trach. Refused for me to call respiratory to suction her. Review of Systems Review of Systems: All systems reviewed & are unremarkable except as noted in HPI & below Physical Exam Constitutional: WD/WN, vitals as above Eyes: + anicteric sclerae Neck: trachea midline, no thyromegaly + abnormal visual inspection (trach in place) Respiratory: normal respiratory effort, lungs clear to auscultation normal respiratory effort Auscultation: + wheezes (a few exp wheezes bilat) Cardiovascular: RRR, no murmur, no edema Gastrointestinal (Abdomen): normal bowel sounds, soft, nontender, no hepatosplenomegaly Musculoskeletal: Extremities: extremities normal to inspection; no cyanosis and no clubbing Skin: no rashes, warm and dry Neurologic: moves all extremities and awake; no focal motor deficits Psychiatric: A+Ox3, euthymic affect Lymphatic: no lymphedema Results & Data Results & Data ([facility]) Vital Signs (Past 12 Hours) Vital Signs Temp Pulse Pulse Resp BP Pulse Ox O2 Del Method 12/02/22 15:13 36.9 C 73 20 115/60 93 Room Air 12/02/22 14:29 77 18 94 Room Air 12/02/22 08:35 Room Air 12/02/22 09:39 77 124/68 94 Room Air 12/02/22 07:52 36.5 C 65 20 106/66 94 Room Air 12/02/22 07:49 65 18 94 Room Air PG Care Time/CCT Total # of Minutes Spent Total Time Spent with Patient: Total time spent is greater than 50% in coordination of care (as documented) at patient's floor/unit and/or counseling patient: Coding Level of Care Code 98986 SUB INP/OBS CARE 25MIN Diagnoses Adjustment disorder with depressed mood F43.21 Acute on chronic combined systolic and diastolic CHF (congestive heart failure) I50.43 Vitamin D deficiency E55.9 Fracture of distal end of right femur S72.401A Type 2 diabetes mellitus E11.9 SOB (shortness of breath) R06.02 Weakness R53.1 Hypothyroidism (acquired) E03.9 CKD stage 4 due to type 2 diabetes mellitus E11.22; N18.4 GERD (gastroesophageal reflux disease) K21.9 Anxiety F41.9 Morbid obesity with BMI of 60.0-69.9, adult E66.01; Z68.44 Tracheostomy dependence Z93.0 Poor social situation Z65.9
[2022-12-02] MEDS: ATORVASTATIN 40 MG TAB PO SCH (21:19)
[2022-12-03] MEDS: ACETAMINOPHEN 500 MG TAB PO SCH ×3 (05:48→21:06)
[2022-12-03] MEDS: LEVOTHYROXINE SODIUM 200 MCG TABLET PO SCH (05:48)
[2022-12-03] MEDS: PANTOprazole 40 MG TAB PO SCH (05:48)
[2022-12-03] MEDS: LEVOTHYROXINE SODIUM 25 MCG TABLET PO SCH (05:48)
[2022-12-03] MEDS: TORSEMIDE 20 MG TAB PO SCH (05:48)
[2022-12-03] MEDS: ALBUT/IPRATROP 3MG/0.5MG NEB 3 ML VIAL NEB PRN ×2 (07:43→15:47)
[2022-12-03] MEDS: INSULIN, Rapid-Acting PUMP SCH ×4 (09:27→21:06)
[2022-12-03] MEDS: ASPIRIN 81 MG ECTAB PO SCH (09:28)
[2022-12-03] MEDS: AZITHROMYCIN 250 MG TAB PO SCH (09:28)
[2022-12-03] MEDS: buPROPion SR 100 MG TABCR PO SCH ×2 (09:29→20:21)
[2022-12-03] MEDS: DICLOFENAC SOD 1% GEL 100 GM TUBE EXT SCH ×4 (09:29→20:18)
[2022-12-03] MEDS: CHOLECALCIFEROL 1,000 UNITS 25 MCG TAB PO SCH (09:29)
[2022-12-03] MEDS: ENOXAPARIN INJ 40 MG/0.4 ML SYR SQ SCH ×2 (09:30→20:23)
[2022-12-03] MEDS: DOCUSATE SODIUM 100 MG CAP PO SCH ×2 (09:30→20:21)
[2022-12-03] MEDS: MAGNESIUM OXIDE 400 MG TAB PO SCH (09:31)
[2022-12-03] MEDS: METOPROLOL TARTRATE 25 MG TAB PO SCH ×2 (09:31→20:20)
[2022-12-03] MEDS: FOLIC ACID 1 MG TAB PO SCH (09:32)
[2022-12-03] MEDS: EMPAGLIFLOZIN 10 MG TAB PO SCH (09:32)
[2022-12-03] MEDS: ISOSORBIDE MONO EXTENDED REL 30 MG TABCR PO SCH (09:32)
[2022-12-03] MEDS: SERTRALINE HCL 50 MG TABLET PO SCH (09:33)
[2022-12-03] MEDS: MULTIVITAMIN TAB PO SCH (09:33)
[2022-12-03] MEDS: TOPIRAMATE 100 MG TAB PO SCH ×2 (09:34→20:20)
[2022-12-03] MEDS: SPIRONOLACTONE 25 MG TAB PO SCH (09:34)
[2022-12-03] MEDS: CALCIUM CITRATE 950 MG TAB PO SCH (12:42)
--- NOTE | 2022-12-03 19:07 | Hospitalist Progress Note ---
Date of Service December 03, 2022 Assessment & Plan (1) Adjustment disorder with depressed mood: Plan: depressed due to PROLONGED institutionalized status (here, [facility], SNF, etc), not being able to see her daughter, poor sleep, etc she is already on wellbutrin 100mg qam + wellbutrin 200mg qhs she is already on topamax 100mg qam and 200mg qhs [address] Dr Parsons's consult sertraline 25mg daily initiated, tolerating well so far previous TSH, B12, 25-OH vit D levels -- all wnl but will check another Vit D level as the last was 35 in 07/2022--> now down to 28--> started Vit D supplement (2) Acute on chronic combined systolic and diastolic CHF (congestive heart failure): Plan: Was decompensated earlier in the stay. Continues to look euvolemic. Remains on torsemide 20 mg daily and prn dose for weight gain. Continue spironolactone, metoprolol, isosorbide mononitrate, ASA, atorvastatin. Last echo - 09/2022 with EF 45-50%. (3) Vitamin D deficiency: Plan: Vit D level now down to 28 after being inside for the last 8-9 months started Vit D 1000 units qAM (4) Fracture of distal end of right femur: Plan: Chronic nonunion of fracture. Appreciate ortho re-consult. x-rays from yesterday reviewed. some callus formation over fracture site. Dr Contreras met with patient -- reviewed films, discussed options for care, etc. Cont nonoperative management. TTWB allowed by Dr Contreras but causes her pain currently Cont tylenol 1gm TID. Cont oxy 10mg prn. Could consider an NSAID but I am concerned this would cause fluid retention - defer for now. continue voltaren gel qid. -added on Vit D and now will add calcium (5) Type 2 diabetes mellitus: Plan: On insulin pump with excellent readings. Basal 5.5 units/hr, CR 1.8 CF 10 Had borderline hypoglycemia on AM of 12/02, corrected with OJ Most recent a1c = 7.2% in 10/2022. Cont jardiance as well. (6) SOB (shortness of breath): Plan: Earlier this stay - 2nd to acute/chronic CHF, COPD, OHS, RASHAAD. Resolved. Continue prn Duonebs and inhalers. Continue daily torsemide and prn torsemide in afternoon for weight gain. (7) Weakness: Plan: Related to morbid obesity and chronic R femur fx with nonunion. On oxycodone as needed and scheduled Tylenol. PT/OT as often as possible. Treat underlying depression. (8) Hypothyroidism (acquired): Plan: Continue Levothyroxine, recent increase from 200mcg daily to 225mcg in mid Oct for elevated TSH. TSH repeated on 10/22 and is now normal at 1.1. (9) CKD stage 4 due to type 2 diabetes mellitus: Plan: Baseline creatinine 1.3-1.8. Last Cr was 1.6 on 11/30/22 Her CrCl is low 50s c/w CKD stage 3. Repeat BMP in one month (10) GERD (gastroesophageal reflux disease): Plan: Continue protonix (11) Anxiety: Plan: see above (12) Morbid obesity with BMI of 60.0-69.9, adult: Plan: BMI 62 (13) Tracheostomy dependence: Plan: for RASHAAD/OHS no issues at this time (14) Poor social situation: Plan: her prolonged hospital stay is due to disposition difficulties she was previously at [facility] - refuses to go back there she refuses to attend another SNF or go out of the area for placement she wishes to go home by report has a large # of hours (90 by report) approved for in-home personal care; however, finding caregivers has been severely problematic social work has contacted between 20-30 home health agencies to try and secure help to no avail further, she needs a ramp built to be able to enter her home she also needs her entryway door widened to accommodate a large wheelchair patient reports that her daughter received a call that a local agency may be able to provide caregivers?? will need to substantiate this with case management will need to investigate what methods/resources are available to build or acquire a ramp for her home (has 2 steps), widen the entry way, etc. Plan DVT prophylaxis-lovenox 40mg BID due to extreme morbid obesity Dispo-continued stay, awaiting caregivers to be arranged at home Right forehead-abrasion from excoriation from rash? Start bacitracin ointment bid Admission and Anticipated Discharge Date Admission Date: October 01, 2022 Subjective Pt has no complaints. No SOB. Moved bowels today. Review of Systems Review of Systems: All systems reviewed & are unremarkable except as noted in HPI & below Physical Exam Constitutional: WD/WN, vitals as above Eyes: + anicteric sclerae Neck: trachea midline, no thyromegaly + abnormal visual inspection (trach in place) Respiratory: normal respiratory effort, lungs clear to auscultation normal respiratory effort Cardiovascular: RRR, no murmur, no edema Gastrointestinal (Abdomen): normal bowel sounds, soft, nontender, no hepatosplenomegaly Musculoskeletal: Extremities: extremities normal to inspection; no cyanosis and no clubbing Skin: no rashes, warm and dry right forehead near hairline with 1.5cm superficial abrasion with mild erythema,no drainage Neurologic: moves all extremities and awake; no focal motor deficits Psychiatric: A+Ox3, euthymic affect Results & Data Results & Data ([facility]) Vital Signs (Past 12 Hours) Vital Signs Temp Pulse Pulse Resp BP Pulse Ox O2 Del Method 12/03/22 15:47 84 18 95 Room Air 12/03/22 14:58 36.8 C 67 18 115/62 94 Room Air 12/03/22 08:05 36.5 C 69 18 126/73 93 Room Air 12/03/22 07:44 80 18 93 Room Air PG Care Time/CCT Total # of Minutes Spent Total Time Spent with Patient: Total time spent is greater than 50% in coordination of care (as documented) at patient's floor/unit and/or counseling patient: Coding Level of Care Code 81975 SUB INP/OBS CARE 25MIN Diagnoses Adjustment disorder with depressed mood F43.21 Acute on chronic combined systolic and diastolic CHF (congestive heart failure) I50.43 Vitamin D deficiency E55.9 Fracture of distal end of right femur S72.401A Type 2 diabetes mellitus E11.9 SOB (shortness of breath) R06.02 Weakness R53.1 Hypothyroidism (acquired) E03.9 CKD stage 4 due to type 2 diabetes mellitus E11.22; N18.4 GERD (gastroesophageal reflux disease) K21.9 Anxiety F41.9 Morbid obesity with BMI of 60.0-69.9, adult E66.01; Z68.44 Tracheostomy dependence Z93.0 Poor social situation Z65.9
[2022-12-03] MEDS: ATORVASTATIN 40 MG TAB PO SCH (20:22)
[2022-12-03] MEDS: BACITRACIN OINT 15 GM TUBE EXT SCH (20:22)
[2022-12-04] MEDS: LEVOTHYROXINE SODIUM 200 MCG TABLET PO SCH (06:07)
[2022-12-04] MEDS: LEVOTHYROXINE SODIUM 25 MCG TABLET PO SCH (06:07)
[2022-12-04] MEDS: TORSEMIDE 20 MG TAB PO SCH (06:07)
[2022-12-04] MEDS: PANTOprazole 40 MG TAB PO SCH (06:08)
[2022-12-04] MEDS: ACETAMINOPHEN 500 MG TAB PO SCH ×3 (06:08→21:21)
[2022-12-04] MEDS: ALBUT/IPRATROP 3MG/0.5MG NEB 3 ML VIAL NEB PRN (08:28)
[2022-12-04] MEDS: CHOLECALCIFEROL 1,000 UNITS 25 MCG TAB PO SCH (09:32)
[2022-12-04] MEDS: FOLIC ACID 1 MG TAB PO SCH (09:32)
[2022-12-04] MEDS: ISOSORBIDE MONO EXTENDED REL 30 MG TABCR PO SCH (09:32)
[2022-12-04] MEDS: EMPAGLIFLOZIN 10 MG TAB PO SCH (09:32)
[2022-12-04] MEDS: buPROPion SR 100 MG TABCR PO SCH ×2 (09:32→21:24)
[2022-12-04] MEDS: ASPIRIN 81 MG ECTAB PO SCH (09:32)
[2022-12-04] MEDS: METOPROLOL TARTRATE 25 MG TAB PO SCH ×2 (09:32→21:22)
[2022-12-04] MEDS: MAGNESIUM OXIDE 400 MG TAB PO SCH (09:32)
[2022-12-04] MEDS: DOCUSATE SODIUM 100 MG CAP PO SCH ×2 (09:32→21:23)
[2022-12-04] MEDS: SPIRONOLACTONE 25 MG TAB PO SCH (09:33)
[2022-12-04] MEDS: SERTRALINE HCL 50 MG TABLET PO SCH (09:33)
[2022-12-04] MEDS: MULTIVITAMIN TAB PO SCH (09:33)
[2022-12-04] MEDS: TOPIRAMATE 100 MG TAB PO SCH ×2 (09:33→21:22)
[2022-12-04] MEDS: DICLOFENAC SOD 1% GEL 100 GM TUBE EXT SCH ×4 (09:38→21:25)
[2022-12-04] MEDS: BACITRACIN OINT 15 GM TUBE EXT SCH ×2 (09:38→21:26)
[2022-12-04] MEDS: ENOXAPARIN INJ 40 MG/0.4 ML SYR SQ SCH ×2 (09:39→21:25)
[2022-12-04] MEDS: INSULIN, Rapid-Acting PUMP SCH ×4 (09:44→21:51)
[2022-12-04] MEDS: CALCIUM CITRATE 950 MG TAB PO SCH (13:18)
--- NOTE | 2022-12-04 18:38 | Hospitalist Progress Note ---
Date of Service December 04, 2022 Assessment & Plan (1) Adjustment disorder with depressed mood: Plan: depressed due to PROLONGED institutionalized status (here, [facility], SNF, etc), not being able to see her daughter, poor sleep, etc she is already on wellbutrin 100mg qam + wellbutrin 200mg qhs she is already on topamax 100mg qam and 200mg qhs appreciate Dr Parsons's consult sertraline 25mg daily initiated, tolerating well so far previous TSH, B12, 25-OH vit D levels -- all wnl but will check another Vit D level as the last was 35 in 07/2022--> now down to 28--> started Vit D supplement (2) Acute on chronic combined systolic and diastolic CHF (congestive heart failure): Plan: Was decompensated earlier in the stay. Continues to look euvolemic. Remains on torsemide 20 mg daily and prn dose for weight gain. Continue spironolactone, metoprolol, isosorbide mononitrate, ASA, atorvastatin. Last echo - 09/2022 with EF 45-50%. (3) Vitamin D deficiency: Plan: Vit D level now down to 28 after being inside for the last 8-9 months started Vit D 1000 units qAM (4) Fracture of distal end of right femur: Plan: Chronic nonunion of fracture. Appreciate ortho re-consult. x-rays from yesterday reviewed. some callus formation over fracture site. Dr Contreras met with patient -- reviewed films, discussed options for care, etc. Cont nonoperative management. TTWB allowed by Dr Contreras but causes her pain currently Cont tylenol 1gm TID. Cont oxy 10mg prn. continue voltaren gel qid. -added on Vit D and calcium (5) Type 2 diabetes mellitus: Plan: On insulin pump with excellent readings. Basal 5.5 units/hr, CR 1.8 CF 10 Had borderline hypoglycemia on AM of 12/02, corrected with OJ Most recent a1c = 7.2% in 10/2022. Cont jardiance as well. (6) SOB (shortness of breath): Plan: Earlier this stay - 2nd to acute/chronic CHF, COPD, OHS, RASHAAD. Resolved. Continue prn Duonebs and inhalers. Continue daily torsemide and prn torsemide in afternoon for weight gain. (7) Weakness: Plan: Related to morbid obesity and chronic R femur fx with nonunion. On oxycodone as needed and scheduled Tylenol. PT/OT as often as possible. Treat underlying depression. (8) Hypothyroidism (acquired): Plan: Continue Levothyroxine, recent increase from 200mcg daily to 225mcg in mid Oct for elevated TSH. TSH repeated on 10/22 and is now normal at 1.1. (9) CKD stage 4 due to type 2 diabetes mellitus: Plan: Baseline creatinine 1.3-1.8. Last Cr was 1.6 on 11/30/22 Her CrCl is low 50s c/w CKD stage 3. Repeat BMP in one month (10) GERD (gastroesophageal reflux disease): Plan: Continue protonix (11) Anxiety: Plan: see above (12) Morbid obesity with BMI of 60.0-69.9, adult: Plan: BMI 62 (13) Tracheostomy dependence: Plan: for RASHAAD/OHS no issues at this time (14) Poor social situation: Plan: her prolonged hospital stay is due to disposition difficulties she was previously at [facility] - refuses to go back there she refuses to attend another SNF or go out of the area for placement she wishes to go home by report has a large # of hours (90 by report) approved for in-home personal care; however, finding caregivers has been severely problematic social work has contacted between 20-30 home health agencies to try and secure help to no avail further, she needs a ramp built to be able to enter her home she also needs her entryway door widened to accommodate a large wheelchair patient reports that her daughter received a call that a local agency may be able to provide caregivers?? will need to substantiate this with case management will need to investigate what methods/resources are available to build or acquire a ramp for her home (has 2 steps), widen the entry way, etc. Plan DVT prophylaxis-lovenox 40mg BID due to extreme morbid obesity Dispo-continued stay, awaiting caregivers to be arranged at home Right forehead-abrasion from excoriation from rash? Cont bacitracin ointment bid Admission and Anticipated Discharge Date Admission Date: October 01, 2022 Subjective No acute issues. Review of Systems Review of Systems: All systems reviewed & are unremarkable except as noted in HPI & below Physical Exam Constitutional: WD/WN, vitals as above Eyes: + anicteric sclerae Neck: trachea midline, no thyromegaly + abnormal visual inspection (trach in place) Respiratory: normal respiratory effort, lungs clear to auscultation normal respiratory effort Cardiovascular: RRR, no murmur, no edema Skin: no rashes, warm and dry Neurologic: moves all extremities and awake; no focal motor deficits Psychiatric: A+Ox3, euthymic affect Results & Data Results & Data ([facility]) Vital Signs (Past 12 Hours) Vital Signs Temp Pulse Pulse Resp BP Pulse Ox O2 Del Method 12/04/22 16:00 36.8 C 71 18 115/67 97 Room Air 12/04/22 13:00 Trach Collar 12/04/22 07:30 36.6 C 68 18 131/75 94 Room Air 12/04/22 08:28 65 18 95 Room Air PG Care Time/CCT Total # of Minutes Spent Total Time Spent with Patient: Total time spent is greater than 50% in coordination of care (as documented) at patient's floor/unit and/or counseling patient: Coding Level of Care Code 96597 SUB INP/OBS CARE 12/15MIN Diagnoses Adjustment disorder with depressed mood F43.21 Acute on chronic combined systolic and diastolic CHF (congestive heart failure) I50.43 Vitamin D deficiency E55.9 Fracture of distal end of right femur S72.401A Type 2 diabetes mellitus E11.9 SOB (shortness of breath) R06.02 Weakness R53.1 Hypothyroidism (acquired) E03.9 CKD stage 4 due to type 2 diabetes mellitus E11.22; N18.4 GERD (gastroesophageal reflux disease) K21.9 Anxiety F41.9 Morbid obesity with BMI of 60.0-69.9, adult E66.01; Z68.44 Tracheostomy dependence Z93.0 Poor social situation Z65.9
[2022-12-04] MEDS: ATORVASTATIN 40 MG TAB PO SCH (21:25)
[2022-12-05] MEDS: oxyCODONE HCL IR 5 MG TAB (IMMEDIATE RELEASE) PO PRN (00:16)
[2022-12-05] MEDS: PANTOprazole 40 MG TAB PO SCH (06:05)
[2022-12-05] MEDS: TORSEMIDE 20 MG TAB PO SCH (06:05)
[2022-12-05] MEDS: LEVOTHYROXINE SODIUM 25 MCG TABLET PO SCH (06:05)
[2022-12-05] MEDS: ACETAMINOPHEN 500 MG TAB PO SCH ×3 (06:07→21:37)
[2022-12-05] MEDS: LEVOTHYROXINE SODIUM 200 MCG TABLET PO SCH (06:07)
[2022-12-05] MEDS: ALBUT/IPRATROP 3MG/0.5MG NEB 3 ML VIAL NEB PRN ×2 (07:34→15:48)
[2022-12-05] MEDS: ASPIRIN 81 MG ECTAB PO SCH (09:20)
[2022-12-05] MEDS: DOCUSATE SODIUM 100 MG CAP PO SCH ×2 (09:20→21:36)
[2022-12-05] MEDS: FOLIC ACID 1 MG TAB PO SCH (09:20)
[2022-12-05] MEDS: CHOLECALCIFEROL 1,000 UNITS 25 MCG TAB PO SCH (09:20)
[2022-12-05] MEDS: EMPAGLIFLOZIN 10 MG TAB PO SCH (09:20)
[2022-12-05] MEDS: ISOSORBIDE MONO EXTENDED REL 30 MG TABCR PO SCH (09:20)
[2022-12-05] MEDS: TOPIRAMATE 100 MG TAB PO SCH ×2 (09:21→21:38)
[2022-12-05] MEDS: METOPROLOL TARTRATE 25 MG TAB PO SCH ×2 (09:21→21:37)
[2022-12-05] MEDS: SERTRALINE HCL 50 MG TABLET PO SCH (09:21)
[2022-12-05] MEDS: SPIRONOLACTONE 25 MG TAB PO SCH (09:21)
[2022-12-05] MEDS: buPROPion SR 100 MG TABCR PO SCH ×2 (09:21→21:37)
[2022-12-05] MEDS: MAGNESIUM OXIDE 400 MG TAB PO SCH (09:21)
[2022-12-05] MEDS: MULTIVITAMIN TAB PO SCH (09:21)
[2022-12-05] MEDS: ENOXAPARIN INJ 40 MG/0.4 ML SYR SQ SCH ×2 (09:33→21:36)
[2022-12-05] MEDS: BACITRACIN OINT 15 GM TUBE EXT SCH ×2 (09:33→21:35)
[2022-12-05] MEDS: DICLOFENAC SOD 1% GEL 100 GM TUBE EXT SCH ×4 (09:33→21:35)
[2022-12-05] MEDS: INSULIN, Rapid-Acting PUMP SCH ×4 (09:39→22:27)
--- NOTE | 2022-12-05 11:18 | Hospitalist Progress Note ---
Date of Service December 05, 2022 Assessment & Plan (1) Adjustment disorder with depressed mood: Plan: depressed due to PROLONGED institutionalized status (here, [facility], SNF, etc), not being able to see her daughter, poor sleep, etc she is already on wellbutrin 100mg qam + wellbutrin 200mg qhs she is already on topamax 100mg qam and 200mg qhs appreciate Dr Parsons's consult sertraline 25mg daily initiated, tolerating well so far previous TSH, B12, 25-OH vit D levels -- all wnl but will check another Vit D level as the last was 35 in 07/2022--> now down to 28--> started Vit D supplement (2) Acute on chronic combined systolic and diastolic CHF (congestive heart failure): Plan: Was decompensated earlier in the stay. Continues to look euvolemic. Remains on torsemide 20 mg daily and prn dose for weight gain. Continue spironolactone, metoprolol, isosorbide mononitrate, ASA, atorvastatin. Last echo - 09/2022 with EF 45-50%. (3) Vitamin D deficiency: Plan: Vit D level now down to 28 after being inside for the last 8-9 months started Vit D 1000 units qAM (4) Fracture of distal end of right femur: Plan: Chronic nonunion of fracture. Appreciate ortho re-consult. x-rays from yesterday reviewed. some callus formation over fracture site. Dr Contreras met with patient -- reviewed films, discussed options for care, etc. Cont nonoperative management. TTWB allowed by Dr Contreras but causes her pain currently Cont tylenol 1gm TID. Cont oxy 10mg prn. continue voltaren gel qid. -added on Vit D and calcium (5) Type 2 diabetes mellitus: Plan: On insulin pump with excellent readings, but having some relative lows just in the AM Decrease Basal rate to 5 units from [id number] (on 12/05) and continue 5.5 units/hr otherwise, CR 1.8 CF 10 Had borderline hypoglycemia on AM of 12/02, corrected with OJ Most recent a1c = 7.2% in 10/2022. Cont jardiance as well. (6) SOB (shortness of breath): Plan: Earlier this stay - 2nd to acute/chronic CHF, COPD, OHS, RASHAAD. Resolved. Continue prn Duonebs and inhalers. Continue daily torsemide and prn torsemide in afternoon for weight gain. (7) Weakness: Plan: Related to morbid obesity and chronic R femur fx with nonunion. On oxycodone as needed and scheduled Tylenol. PT/OT as often as possible. Treat underlying depression. (8) Hypothyroidism (acquired): Plan: Continue Levothyroxine, recent increase from 200mcg daily to 225mcg in mid Oct for elevated TSH. TSH repeated on 10/22 and is now normal at 1.1. (9) CKD stage 4 due to type 2 diabetes mellitus: Plan: Baseline creatinine 1.3-1.8. Last Cr was 1.6 on 11/30/22 Her CrCl is low 50s c/w CKD stage 3. Repeat BMP in one month (10) GERD (gastroesophageal reflux disease): Plan: Continue protonix (11) Anxiety: Plan: see above (12) Morbid obesity with BMI of 60.0-69.9, adult: Plan: BMI 62 continue topamax (13) Tracheostomy dependence: Plan: for RASHAAD/OHS no issues at this time (14) Poor social situation: Plan: her prolonged hospital stay is due to disposition difficulties she was previously at [facility] - refuses to go back there she refuses to attend another SNF or go out of the area for placement she wishes to go home by report has a large # of hours (90 by report) approved for in-home personal care; however, finding caregivers has been severely problematic social work has contacted between 20-30 home health agencies to try and secure help to no avail further, she needs a ramp built to be able to enter her home she also needs her entryway door widened to accommodate a large wheelchair patient reports that her daughter received a call that a local agency may be able to provide caregivers?? will need to substantiate this with case management will need to investigate what methods/resources are available to build or acquir e a ramp for her home (has 2 steps), widen the entry way, etc. Plan DVT prophylaxis-lovenox 40mg BID due to extreme morbid obesity Dispo-continued stay, awaiting caregivers to be arranged at home Right forehead-abrasion from excoriation from rash? Cont bacitracin ointment bid-improved Admission and Anticipated Discharge Date Admission Date: October 01, 2022 Subjective Pt had some low normal glucose readings in the AMs but asymptomatic. D/w diabetic nurse who will decrease pump settings overnight for bolus rate Otherwise no complaints. Review of Systems Review of Systems: All systems reviewed & are unremarkable except as noted in HPI & below Physical Exam Constitutional: WD/WN, vitals as above Eyes: + anicteric sclerae Neck: trachea midline, no thyromegaly + abnormal visual inspection (trach in place) Respiratory: normal respiratory effort, lungs clear to auscultation Cardiovascular: RRR, no murmur, no edema Gastrointestinal (Abdomen): normal bowel sounds, soft, nontender, no hepatosplenomegaly Musculoskeletal: Extremities: extremities normal to inspection; no cyanosis and no clubbing Skin: no rashes, warm and dry Neurologic: moves all extremities and awake; no focal motor deficits Psychiatric: A+Ox3, euthymic affect Lymphatic: no lymphedema Results & Data Results & Data ([facility]) Vital Signs (Past 12 Hours) Vital Signs Temp Pulse Resp BP Pulse Ox O2 Del Method 12/05/22 07:52 36.6 C 69 16 118/60 90 Room Air 12/05/22 07:34 69 18 90 Room Air 12/04/22 23:18 36.8 C 77 20 169/74 H 95 Room Air PG Care Time/CCT Total # of Minutes Spent Total Time Spent with Patient: Total time spent is greater than 50% in coordination of care (as documented) at patient's floor/unit and/or counseling patient: Coding Level of Care Code 49492 SUB INP/OBS CARE 1/25MIN Diagnoses Adjustment disorder with depressed mood F43.21 Acute on chronic combined systolic and diastolic CHF (congestive heart failure) I50.43 Vitamin D deficiency E55.9 Fracture of distal end of right femur S72.401A Type 2 diabetes mellitus E11.9 SOB (shortness of breath) R06.02 Weakness R53.1 Hypothyroidism (acquired) E03.9 CKD stage 4 due to type 2 diabetes mellitus E11.22; N18.4 GERD (gastroesophageal reflux disease) K21.9 Anxiety F41.9 Morbid obesity with BMI of 60.0-69.9, adult E66.01; Z68.44 Tracheostomy dependence Z93.0 Poor social situation Z65.9
[2022-12-05] MEDS: CALCIUM CITRATE 950 MG TAB PO SCH (13:05)
[2022-12-05] MEDS: ATORVASTATIN 40 MG TAB PO SCH (21:38)
[2022-12-06] MEDS: PANTOprazole 40 MG TAB PO SCH (06:22)
[2022-12-06] MEDS: ACETAMINOPHEN 500 MG TAB PO SCH ×3 (06:22→21:54)
[2022-12-06] MEDS: LEVOTHYROXINE SODIUM 25 MCG TABLET PO SCH (06:22)
[2022-12-06] MEDS: LEVOTHYROXINE SODIUM 200 MCG TABLET PO SCH (06:22)
[2022-12-06] MEDS: ALBUT/IPRATROP 3MG/0.5MG NEB 3 ML VIAL NEB PRN ×2 (07:11→15:47)
[2022-12-06] MEDS: TORSEMIDE 20 MG TAB PO SCH (07:45)
[2022-12-06] MEDS: INSULIN, Rapid-Acting PUMP SCH ×5 (08:55→22:03)
[2022-12-06] MEDS: FOLIC ACID 1 MG TAB PO SCH (08:56)
[2022-12-06] MEDS: ASPIRIN 81 MG ECTAB PO SCH (08:56)
[2022-12-06] MEDS: SERTRALINE HCL 50 MG TABLET PO SCH (08:56)
[2022-12-06] MEDS: AZITHROMYCIN 250 MG TAB PO SCH (08:56)
[2022-12-06] MEDS: CHOLECALCIFEROL 1,000 UNITS 25 MCG TAB PO SCH (08:56)
[2022-12-06] MEDS: METOPROLOL TARTRATE 25 MG TAB PO SCH ×2 (08:56→20:23)
[2022-12-06] MEDS: SPIRONOLACTONE 25 MG TAB PO SCH (08:56)
[2022-12-06] MEDS: EMPAGLIFLOZIN 10 MG TAB PO SCH (08:57)
[2022-12-06] MEDS: MAGNESIUM OXIDE 400 MG TAB PO SCH (08:57)
[2022-12-06] MEDS: DOCUSATE SODIUM 100 MG CAP PO SCH ×2 (08:57→20:24)
[2022-12-06] MEDS: ISOSORBIDE MONO EXTENDED REL 30 MG TABCR PO SCH (08:57)
[2022-12-06] MEDS: TOPIRAMATE 100 MG TAB PO SCH ×2 (08:57→20:23)
[2022-12-06] MEDS: buPROPion SR 100 MG TABCR PO SCH ×2 (08:58→20:23)
[2022-12-06] MEDS: BACITRACIN OINT 15 GM TUBE EXT SCH ×2 (08:58→20:24)
[2022-12-06] MEDS: DICLOFENAC SOD 1% GEL 100 GM TUBE EXT SCH ×4 (08:58→20:22)
[2022-12-06] MEDS: ENOXAPARIN INJ 40 MG/0.4 ML SYR SQ SCH ×2 (08:59→20:25)
[2022-12-06] MEDS: MULTIVITAMIN TAB PO SCH (08:59)
[2022-12-06] MEDS: CALCIUM CITRATE 950 MG TAB PO SCH (12:31)
--- NOTE | 2022-12-06 15:46 | Hospitalist Progress Note ---
Date of Service December 06, 2022 Assessment & Plan (1) Fracture of distal end of right femur: Plan: Here with prolonged hospitalization due to ambulatory dysfunction from chronic nonunion of distal femur fracture, awaiting arrangements for home health care Chronic nonunion of fracture. Appreciate ortho re-consult. x-rays from yesterday reviewed. some callus formation over fracture site. Dr Contreras met with patient -- reviewed films, discussed options for care, etc. Cont nonoperative management. TTWB allowed by Dr Contreras but causes her pain currently Cont tylenol 1gm TID. Cont oxy 10mg prn. continue voltaren gel qid. -added on Vit D and calcium (2) Adjustment disorder with depressed mood: Plan: depressed due to PROLONGED institutionalized status (here, [facility], SNF, etc), not being able to see her daughter, poor sleep, etc she is already on wellbutrin 100mg qam + wellbutrin 200mg qhs she is already on topamax 100mg qam and 200mg qhs appreciate Dr Parsons's consult sertraline 25mg daily initiated, tolerating well so far and mood has improved for sure since that time. Consider up titration as needed. previous TSH, B12, 25-OH vit D levels -- all wnl but checked another Vit D level as the last was 35 in 07/2022--> now down to 28--> started Vit D supplement (3) Acute on chronic combined systolic and diastolic CHF (congestive heart failure): Plan: Was decompensated earlier in the stay. Continues to look euvolemic. Remains on torsemide 20 mg daily and prn dose for weight gain. Continue spironolactone, metoprolol, isosorbide mononitrate, ASA, atorvastatin. Last echo - 09/2022 with EF 45-50%. (4) Vitamin D deficiency: Plan: Vit D level now down to 28 after being inside for the last 8-9 months started Vit D 1000 units qAM (5) Type 2 diabetes mellitus: Plan: On insulin pump with excellent readings, but having some relative lows just in the AM Decreased Basal rate to 5 units from [id number] (on 12/05) and continue 5.5 units/hr otherwise, CR 1.8 CF 10 AM hypoglycemia now resolved with adjustment to basal rate Most recent a1c = 7.2% in 10/2022. Cont jardiance as well. (6) SOB (shortness of breath): Plan: Earlier this stay - 2nd to acute/chronic CHF, COPD, OHS, RASHAAD. Resolved. Continue prn Duonebs and inhalers. Continue daily torsemide and prn torsemide in afternoon for weight gain. (7) Weakness: Plan: Related to morbid obesity and chronic R femur fx with nonunion. On oxycodone as needed and scheduled Tylenol. PT/OT as often as possible. She is now able to get to the bedside chair or commode independently with stand and pivot (8) Hypothyroidism (acquired): Plan: Continue Levothyroxine, recent increase from 200mcg daily to 225mcg in mid Oct for elevated TSH. TSH repeated on 10/22 and is now normal at 1.1. (9) CKD stage 4 due to type 2 diabetes mellitus: Plan: Baseline creatinine 1.3-1.8. Last Cr was 1.6 on 11/30/22 Her CrCl is low 50s c/w CKD stage 3. Repeat BMP in one month (10) GERD (gastroesophageal reflux disease): Plan: Continue protonix (11) Anxiety: Plan: see above (12) Morbid obesity with BMI of 60.0-69.9, adult: Plan: BMI 62 continue topamax (13) Tracheostomy dependence: Plan: for RASHAAD/OHS no issues at this time (14) Poor social situation: Plan: her prolonged hospital stay is due to disposition difficulties she was previously at [facility] - refuses to go back there she refuses to attend another SNF or go out of the area for placement she wishes to go home by report has a large # of hours (90 by report) approved for in-home personal care; however, finding caregivers has been severely problematic social work has contacted between 20-30 home health agencies to try and secure help to no avail further, she needs a ramp built to be able to enter her home she also needs her entryway door widened to accommodate a large wheelchair will need to investigate what methods/resources are available to build or acquire a ramp for her home (has 2 steps), widen the entry way, etc. She now has a specific agency that we will be able to provide 90 hours a week as soon as they hired the 2 women that the patient knows are interested in the posi tion. The agency did meet with Ms. Connelly on 12/06 in the hospital to fill out paperwork Plan DVT prophylaxis-lovenox 40mg BID due to extreme morbid obesity Dispo-continued stay, awaiting caregivers to be arranged at home Right forehead-abrasion from excoriation from rash? Cont bacitracin ointment bid-improved Of note, all medications renewed for approximately 1 more month as they every 4 weeks, opioids every 2 weeks Admission and Anticipated Discharge Date Admission Date: October 01, 2022 Subjective Patient has no complaints. The home care agency met with her today and filled out paperwork. Review of Systems Review of Systems: All systems reviewed & are unremarkable except as noted in HPI & below Physical Exam Constitutional: WD/WN, vitals as above Eyes: + anicteric sclerae Neck: trachea midline, no thyromegaly + abnormal visual inspection (trach in place) Respiratory: normal respiratory effort Musculoskeletal: Extremities: no cyanosis and no clubbing Neurologic: moves all extremities and awake; no focal motor deficits Psychiatric: A+Ox3, euthymic affect Results & Data Results & Data ([facility]) Vital Signs (Past 12 Hours) Vital Signs Temp Pulse Resp BP Pulse Ox O2 Del Method 12/06/22 15:32 36.9 C 80 16 113/58 L 92 Room Air, Trach Collar 12/06/22 07:36 36.8 C 66 16 127/72 94 Room Air, Trach Collar 12/06/22 07:11 86 20 95 Room Air PG Care Time/CCT Total # of Minutes Spent Total Time Spent with Patient: Total time spent is greater than 50% in coordination of care (as documented) at patient's floor/unit and/or counseling patient: Coding Level of Care Code 53445 SUB INP/OBS CARE 12/15MIN Diagnoses Fracture of distal end of right femur S72.401A Adjustment disorder with depressed mood F43.21 Acute on chronic combined systolic and diastolic CHF (congestive heart failure) I50.43 Vitamin D deficiency E55.9 Type 2 diabetes mellitus E11.9 SOB (shortness of breath) R06.02 Weakness R53.1 Hypothyroidism (acquired) E03.9 CKD stage 4 due to type 2 diabetes mellitus E11.22; N18.4 GERD (gastroesophageal reflux disease) K21.9 Anxiety F41.9 Morbid obesity with BMI of 60.0-69.9, adult E66.01; Z68.44 Tracheostomy dependence Z93.0 Poor social situation Z65.9
[2022-12-06] MEDS: ATORVASTATIN 40 MG TAB PO SCH (20:24)
[2022-12-06] MEDS: oxyCODONE HCL IR 5 MG TAB (IMMEDIATE RELEASE) PO PRN (21:56)
[2022-12-07] MEDS: LEVOTHYROXINE SODIUM 25 MCG TABLET PO SCH (06:20)
[2022-12-07] MEDS: PANTOprazole 40 MG TAB PO SCH (06:20)
[2022-12-07] MEDS: TORSEMIDE 20 MG TAB PO SCH (06:20)
[2022-12-07] MEDS: LEVOTHYROXINE SODIUM 200 MCG TABLET PO SCH (06:21)
[2022-12-07] MEDS: ACETAMINOPHEN 500 MG TAB PO SCH ×3 (06:21→21:29)
[2022-12-07] MEDS: ALBUT/IPRATROP 3MG/0.5MG NEB 3 ML VIAL NEB PRN (07:15)
[2022-12-07] MEDS: EMPAGLIFLOZIN 10 MG TAB PO SCH (08:59)
[2022-12-07] MEDS: ASPIRIN 81 MG ECTAB PO SCH (09:00)
[2022-12-07] MEDS: buPROPion SR 100 MG TABCR PO SCH ×2 (09:01→20:44)
[2022-12-07] MEDS: SERTRALINE HCL 50 MG TABLET PO SCH (09:01)
[2022-12-07] MEDS: FOLIC ACID 1 MG TAB PO SCH (09:01)
[2022-12-07] MEDS: ISOSORBIDE MONO EXTENDED REL 30 MG TABCR PO SCH (09:02)
[2022-12-07] MEDS: DOCUSATE SODIUM 100 MG CAP PO SCH ×2 (09:03→20:42)
[2022-12-07] MEDS: MAGNESIUM OXIDE 400 MG TAB PO SCH (09:03)
[2022-12-07] MEDS: METOPROLOL TARTRATE 25 MG TAB PO SCH ×2 (09:03→20:43)
[2022-12-07] MEDS: MULTIVITAMIN TAB PO SCH (09:04)
[2022-12-07] MEDS: CHOLECALCIFEROL 1,000 UNITS 25 MCG TAB PO SCH (09:11)
[2022-12-07] MEDS: SPIRONOLACTONE 25 MG TAB PO SCH (09:11)
[2022-12-07] MEDS: ENOXAPARIN INJ 40 MG/0.4 ML SYR SQ SCH ×2 (09:12→20:45)
[2022-12-07] MEDS: DICLOFENAC SOD 1% GEL 100 GM TUBE EXT SCH ×4 (09:12→20:45)
[2022-12-07] MEDS: BACITRACIN OINT 15 GM TUBE EXT SCH ×2 (09:12→20:45)
[2022-12-07] MEDS: TOPIRAMATE 100 MG TAB PO SCH ×2 (09:13→20:44)
[2022-12-07] MEDS: INSULIN, Rapid-Acting PUMP SCH ×4 (09:24→20:58)
[2022-12-07] MEDS: CALCIUM CITRATE 950 MG TAB PO SCH (12:57)
--- NOTE | 2022-12-07 19:38 | Hospitalist Progress Note ---
Date of Service December 07, 2022 Assessment & Plan (1) Adjustment disorder with depressed mood: Plan: depressed due to PROLONGED institutionalized status (here, [facility], SNF, etc), not being able to see her daughter, poor sleep, etc remains on wellbutrin 100mg qam + wellbutrin 200mg qhs along with topamax 100mg qam and 200mg qhs sertraline 25mg daily initiated on 11/28/22 tolerating thus far increase to 50mg ? would need to watch for serotonin excess will d/w psychiatry previous TSH, B12, 25-OH vit D levels -- all wnl (2) Acute on chronic combined systolic and diastolic CHF (congestive heart failure): Plan: Euvolemic. Cont torsemide 20 mg daily and prn dose for weight gain. Continue spironolactone, metoprolol, isosorbide mononitrate, ASA, atorvastatin. Last echo - 09/2022 with EF 45-50%. (3) Fracture of distal end of right femur: Plan: Chronic nonunion of fracture. Appreciate ortho re-consult by Dr Contreras earlier this month. Most recent x-rays with some callus formation over fracture site. Cont nonoperative management. TTWB allowed by Dr Contreras. Cont tylenol 1gm TID. Cont oxy 10mg prn. Cont voltaren gel qid. (4) Type 2 diabetes mellitus: Plan: On insulin pump with excellent readings. Most recent a1c = 7.2% in 10/2022. Cont jardiance. (5) SOB (shortness of breath): Plan: Earlier this stay - 2nd to acute/chronic CHF, COPD, OHS, RASHAAD. Resolved. Continue prn Duonebs and inhalers. Continue daily torsemide and prn torsemide in afternoon for weight gain. (6) Weakness: Plan: Cont PT/OT as tolerated. Treat underlying depression. (7) Hypothyroidism (acquired): Plan: Continue Levothyroxine, recent increase from 200mcg daily to 225mcg in mid August 2022 for elevated TSH. TSH repeated on 10/22/22 1.1. (8) CKD stage 4 due to type 2 diabetes mellitus: Plan: Baseline creatinine 1.3-1.8. Her CrCl is low 50s c/w CKD stage 3. Repeat BMP am. (9) GERD (gastroesophageal reflux disease): Plan: Continue protonix (10) Anxiety: Plan: see above in #1 (11) Morbid obesity with BMI of 60.0-69.9, adult: Plan: BMI 64 (12) Tracheostomy dependence: Plan: for RASHAAD/OHS no issues cont routine trach care (13) Poor social situation: Plan: her prolonged hospital stay is due to disposition difficulties she was previously at [facility] - refuses to go back there she refuses to attend another SNF or go out of the area for placement she wishes to go home by report has a large # of hours (90 by report) approved for in-home personal care; however, finding caregivers has been severely problematic social work has contacted between 20-30 home health agencies to try and secure help to no avail further, she needs a ramp built to be able to enter her home she also needs her entryway door widened to accommodate a large wheelchair social work continues to work on all of the above (14) DVT prophylaxis: Plan: lovenox 40mg BID due to extreme morbid obesity Admission and Anticipated Discharge Date Admission Date: October 01, 2022 Subjective patient reports that the 2 caregivers she believed were going to be her caregivers at her home post-d/c have backed out she is quite discouraged by this she was tearful throughout the visit denies any new complaints she stated multiple times "I WILL be going home" Review of Systems Review of Systems: gen - sleeping ok, eating well cv - no chest pain pulm - no dyspnea GI - no abd pain or N/V Physical Exam Physical Exam: gen - morbidly obese, sitting in chair, tearful neck - metal trach in place - clean mouth - no thrush heart - RRR, s1 s2, 1/6 PIETER LSB lungs - CTA b/l, decreased BS b/l bases abd - soft NT ND BS+ ext - <1+ edema of feet b/l, pulses 2+ b/l psych - a/o x 3, tearful/depressed Results & Data Results & Data ([facility]) Vital Signs (Past 12 Hours) Vital Signs Temp Pulse Resp BP Pulse Ox O2 Del Method 12/07/22 15:02 36.9 C 69 16 125/69 95 Room Air 12/07/22 07:55 Room Air 12/07/22 08:22 37 C 68 16 146/76 H 96 Room Air Laboratory Results Laboratory Results - last 24 hr 12/06/22 12/07/22 12/07/22 21:09 08:16 12:07 POC Glucose 148 H 74 158 H 12/07/22 17:13 POC Glucose 132 H PG Care Time/CCT Total # of Minutes Spent Total Time Spent with Patient: Total time spent is greater than 50% in coordination of care (as documented) at patient's floor/unit and/or counseling patient: Coding Level of Care Code 97294 SUB INP/OBS CARE 12/15MIN Diagnoses Adjustment disorder with depressed mood F43.21 Acute on chronic combined systolic and diastolic CHF (congestive heart failure) I50.43 Fracture of distal end of right femur S72.401A Type 2 diabetes mellitus E11.9 SOB (shortness of breath) R06.02 Weakness R53.1 Hypothyroidism (acquired) E03.9 CKD stage 4 due to type 2 diabetes mellitus E11.22; N18.4 GERD (gastroesophageal reflux disease) K21.9 Anxiety F41.9 Morbid obesity with BMI of 60.0-69.9, adult E66.01; Z68.44 Tracheostomy dependence Z93.0 Poor social situation Z65.9 DVT prophylaxis Z29.9
[2022-12-07] MEDS: ATORVASTATIN 40 MG TAB PO SCH (20:44)
[2022-12-08] MEDS: ACETAMINOPHEN 500 MG TAB PO SCH ×3 (06:11→21:20)
[2022-12-08] MEDS: PANTOprazole 40 MG TAB PO SCH (06:11)
[2022-12-08] MEDS: LEVOTHYROXINE SODIUM 25 MCG TABLET PO SCH (06:11)
[2022-12-08] MEDS: TORSEMIDE 20 MG TAB PO SCH (06:11)
[2022-12-08] MEDS: LEVOTHYROXINE SODIUM 200 MCG TABLET PO SCH (06:12)
[2022-12-08] MEDS: ALBUT/IPRATROP 3MG/0.5MG NEB 3 ML VIAL NEB PRN ×2 (07:33→15:28)
[2022-12-08 09:10] LABS: Hematocrit (blood only) 38.9 % (34.1-44.9); Hemoglobin 11.9 g/dl (12.0-16.0); Mean Corpuscular Hemoglobin 27.2 pg (25.0-34.0); Mean Corpuscular Hgb Conc 30.6 g/dL (32.0-36.0); Mean Platelet Volume 9.5 fL (9.4-12.3); Platelet Count 275 K/uL (130-400); RDW Coefficient of Variation 14.7 % (11.5-14.5); RDW Standard Deviation 48.5 fL (36.4-46.3); Red Blood Count 4.37 M/uL (3.93-5.22); White Blood Count 7.68 K/ul (4.8-10.8)
[2022-12-08] MEDS: METOPROLOL TARTRATE 25 MG TAB PO SCH ×2 (09:19→20:46)
[2022-12-08] MEDS: DOCUSATE SODIUM 100 MG CAP PO SCH ×2 (09:19→20:47)
[2022-12-08] MEDS: MULTIVITAMIN TAB PO SCH (09:20)
[2022-12-08] MEDS: buPROPion SR 100 MG TABCR PO SCH ×2 (09:20→20:47)
[2022-12-08] MEDS: CHOLECALCIFEROL 1,000 UNITS 25 MCG TAB PO SCH (09:20)
[2022-12-08] MEDS: EMPAGLIFLOZIN 10 MG TAB PO SCH (09:21)
[2022-12-08] MEDS: MAGNESIUM OXIDE 400 MG TAB PO SCH (09:21)
[2022-12-08] MEDS: ASPIRIN 81 MG ECTAB PO SCH (09:21)
[2022-12-08] MEDS: SERTRALINE HCL 50 MG TABLET PO SCH (09:22)
[2022-12-08] MEDS: ISOSORBIDE MONO EXTENDED REL 30 MG TABCR PO SCH (09:22)
[2022-12-08] MEDS: FOLIC ACID 1 MG TAB PO SCH (09:22)
[2022-12-08] MEDS: AZITHROMYCIN 250 MG TAB PO SCH (09:23)
[2022-12-08] MEDS: TOPIRAMATE 100 MG TAB PO SCH ×2 (09:23→20:47)
[2022-12-08] MEDS: SPIRONOLACTONE 25 MG TAB PO SCH (09:23)
[2022-12-08] MEDS: BACITRACIN OINT 15 GM TUBE EXT SCH ×2 (09:24→20:48)
[2022-12-08] MEDS: ENOXAPARIN INJ 40 MG/0.4 ML SYR SQ SCH ×2 (09:24→20:48)
[2022-12-08] MEDS: DICLOFENAC SOD 1% GEL 100 GM TUBE EXT SCH ×4 (09:24→20:48)
[2022-12-08 09:36] LABS: BUN Creatinine Ratio 19.2 (10-20); Calcium 9.2 mg/dl (8.5-10.1); Creatinine Clr Calc Pharmacy 54.1 ml/min; Est GFR (African American) 41.3 ml/min; Est GFR (Non-African American) 35.6 ml/min
[2022-12-08] MEDS: INSULIN, Rapid-Acting PUMP SCH ×4 (09:48→22:06)
[2022-12-08] MEDS: CALCIUM CITRATE 950 MG TAB PO SCH (13:08)
[2022-12-08] MEDS: oxyCODONE HCL IR 5 MG TAB (IMMEDIATE RELEASE) PO PRN (14:46)
[2022-12-08] MEDS: ATORVASTATIN 40 MG TAB PO SCH (20:47)
--- NOTE | 2022-12-08 20:47 | Hospitalist Progress Note ---
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 Appreciate ortho re-consult by Dr Contreras earlier this month. Most recent x-rays with some callus formation over fracture site. Cont nonoperative management. TTWB allowed by Dr Contreras. Cont tylenol 1gm TID. Cont oxy 10mg prn. Cont voltaren gel qid. (2) Adjustment disorder with depressed mood: Plan: depressed due to PROLONGED institutionalized status (here, [facility], SNF, etc), not being able to see her daughter, poor sleep, etc remains on wellbutrin 100mg qam + wellbutrin 200mg qhs along with topamax 100mg qam and 200mg qhs sertraline 25mg daily initiated on 11/28/22 tolerating thus far increase to 50mg ? --- would need to watch for serotonin excess will d/w psychiatry previous TSH, B12, 25-OH vit D levels -- all wnl (3) Acute on chronic combined systolic and diastolic CHF (congestive heart failure): Plan: Euvolemic. Cont torsemide 20 mg daily and prn dose for weight gain. Continue spironolactone, metoprolol, isosorbide mononitrate, ASA, atorvastatin. Last echo - 09/2022 with EF 45-50%. (4) Type 2 diabetes mellitus: Plan: On insulin pump with excellent readings. Most recent a1c = 7.2% in 10/2022. Cont jardiance. (5) SOB (shortness of breath): Plan: Earlier this stay - 2nd to acute/chronic CHF, COPD, OHS, RASHAAD. Resolved. Continue prn Duonebs and inhalers. Continue daily torsemide and prn torsemide in afternoon for weight gain. (6) Weakness: Plan: Cont PT/OT as tolerated. Treat underlying depression. (7) Hypothyroidism (acquired): Plan: Continue Levothyroxine. TSH 1.1 on 10/22/22. (8) CKD stage 4 due to type 2 diabetes mellitus: Plan: Baseline creatinine 1.3-1.8. Her CrCl is low 50s c/w CKD stage 3. Repeat labs today -- Cr 1.5; CrCl 50s. STABLE. (9) GERD (gastroesophageal reflux disease): Plan: Continue protonix (10) Anxiety: Plan: see above in #1 (11) Morbid obesity with BMI of 60.0-69.9, adult: Plan: BMI 64 (12) Tracheostomy dependence: Plan: for RASHAAD/OHS no issues cont routine trach care (13) Poor social situation: Plan: her prolonged hospital stay is due to disposition difficulties she was previously at [facility] - refuses to go back there she refuses to attend another SNF or go out of the area for placement she wishes to go home by report has a large # of hours (90 by report) approved for in-home personal care; however, finding caregivers has been severely problematic social work has contacted between 20-30 home health agencies to try and secure help to no avail further, she needs a ramp built to be able to enter her home she also needs her entryway door widened to accommodate a large wheelchair social work continues to work on all of the above unfortunately no new leads on securing caregivers for her exhaustive search continues (14) DVT prophylaxis: Plan: lovenox 40mg BID due to extreme morbid obesity Plan update daughter this week Admission and Anticipated Discharge Date Admission Date: October 01, 2022 Subjective no new issues I spoke with social work today - unfortunately no new leads for obtaining caregivers for her to be able to go home patient very, very sad and tearful about remaining hospitalized offered for us to take her for a ride in wheelchair to get out of her room (has been in the same room for weeks) - she declined Review of Systems Review of Systems: cv - no chest pain; she does not feel that she is retaining fluid pulm - no dyspnea GI - no pain; moving bowels Physical Exam Physical Exam: gen - morbidly obese, sitting in chair, tearful like yesterday neck - metal trach in place - clean, no secretions mouth - no thrush heart - RRR, s1 s2, 1/6 PIETER LSB lungs - CTA b/l without wheeze/rales abd - soft NT ND BS+ ext - <1+ edema of feet b/l, pulses 2+ b/l psych - a/o x 3, tearful/depressed skin - dry skin on feet/legs Results & Data Results & Data ([facility]) Vital Signs (Past 12 Hours) Vital Signs Temp Pulse Resp BP Pulse Ox O2 Del Method 12/08/22 15:35 36.8 C 74 16 143/74 H 94 Room Air, Trach Collar 12/08/22 15:28 82 22 96 Room Air 12/08/22 10:00 Room Air 12/08/22 09:18 71 128/76 Laboratory Results Laboratory Results - last 24 hr 12/08/22 12/08/22 12/08/22 07:55 08:35 08:35 WBC 7.68 RBC 4.37 Hgb 11.9 L Hct 38.9 MCV 89.0 MCH 27.2 MCHC 30.6 L RDW Std Deviation 48.5 H RDW Coeff of Amee 14.7 H Plt Count 275 MPV 9.5 Sodium 140 Potassium 4.0 Chloride 109 H Carbon Dioxide 26 Anion Gap 5 BUN 29 H Creatinine 1.51 H Est Cr Clr Drug Dosing 54.1 Est GFR ( Amer) 41.3 Est GFR (Non-Af Amer) 35.6 BUN/Creatinine Ratio 19.2 Glucose 82 POC Glucose 82 Calcium 9.2 Magnesium 2.0 12/08/22 12/08/22 12/08/22 11:57 17:07 20:32 WBC RBC Hgb Hct MCV MCH MCHC RDW Std Deviation RDW Coeff of Amee Plt Count MPV Sodium Potassium Chloride Carbon Dioxide Anion Gap BUN Creatinine Est Cr Clr Drug Dosing Est GFR ( Amer) Est GFR (Non-Af Amer) BUN/Creatinine Ratio Glucose POC Glucose 105 H 163 H 142 H Calcium Magnesium PG Care Time/CCT Total # of Minutes Spent Total Time Spent with Patient: Total time spent is greater than 50% in coordination of care (as documented) at patient's floor/unit and/or counseling patient: Coding Level of Care Code 17473 SUB INP/OBS CARE 12/15MIN Diagnoses Fracture of distal end of right femur S72.401A Adjustment disorder with depressed mood F43.21 Acute on chronic combined systolic and diastolic CHF (congestive heart failure) I50.43 Type 2 diabetes mellitus E11.9 SOB (shortness of breath) R06.02 Weakness R53.1 Hypothyroidism (acquired) E03.9 CKD stage 4 due to type 2 diabetes mellitus E11.22; N18.4 GERD (gastroesophageal reflux disease) K21.9 Anxiety F41.9 Morbid obesity with BMI of 60.0-69.9, adult E66.01; Z68.44 Tracheostomy dependence Z93.0 Poor social situation Z65.9 DVT prophylaxis Z29.9
[2022-12-09] MEDS: ACETAMINOPHEN 500 MG TAB PO SCH ×3 (06:13→21:27)
[2022-12-09] MEDS: LEVOTHYROXINE SODIUM 25 MCG TABLET PO SCH (06:13)
[2022-12-09] MEDS: PANTOprazole 40 MG TAB PO SCH (06:13)
[2022-12-09] MEDS: LEVOTHYROXINE SODIUM 200 MCG TABLET PO SCH (06:13)
[2022-12-09] MEDS: TORSEMIDE 20 MG TAB PO SCH (06:13)
[2022-12-09] MEDS: ALBUT/IPRATROP 3MG/0.5MG NEB 3 ML VIAL NEB PRN ×3 (07:34→20:37)
[2022-12-09] MEDS: DOCUSATE SODIUM 100 MG CAP PO SCH ×2 (07:35→21:28)
[2022-12-09] MEDS: METOPROLOL TARTRATE 25 MG TAB PO SCH ×2 (07:36→21:27)
[2022-12-09] MEDS: FOLIC ACID 1 MG TAB PO SCH (07:36)
[2022-12-09] MEDS: MAGNESIUM OXIDE 400 MG TAB PO SCH (07:37)
[2022-12-09] MEDS: SPIRONOLACTONE 25 MG TAB PO SCH (07:37)
[2022-12-09] MEDS: ISOSORBIDE MONO EXTENDED REL 30 MG TABCR PO SCH (07:37)
[2022-12-09] MEDS: buPROPion SR 100 MG TABCR PO SCH ×2 (07:38→21:27)
[2022-12-09] MEDS: ASPIRIN 81 MG ECTAB PO SCH (07:38)
[2022-12-09] MEDS: TOPIRAMATE 100 MG TAB PO SCH ×2 (07:38→21:28)
[2022-12-09] MEDS: MULTIVITAMIN TAB PO SCH (07:39)
[2022-12-09] MEDS: EMPAGLIFLOZIN 10 MG TAB PO SCH (07:39)
[2022-12-09] MEDS: CHOLECALCIFEROL 1,000 UNITS 25 MCG TAB PO SCH (07:39)
[2022-12-09] MEDS: SERTRALINE HCL 50 MG TABLET PO SCH (07:40)
[2022-12-09] MEDS: BACITRACIN OINT 15 GM TUBE EXT SCH ×2 (07:41→21:29)
[2022-12-09] MEDS: ENOXAPARIN INJ 40 MG/0.4 ML SYR SQ SCH ×2 (07:41→21:29)
[2022-12-09] MEDS: DICLOFENAC SOD 1% GEL 100 GM TUBE EXT SCH ×4 (07:41→21:29)
[2022-12-09] MEDS: INSULIN, Rapid-Acting PUMP SCH ×4 (08:42→22:20)
[2022-12-09] MEDS: CALCIUM CITRATE 950 MG TAB PO SCH (15:03)
[2022-12-09] MEDS: ATORVASTATIN 40 MG TAB PO SCH (21:28)
[2022-12-10] MEDS: TORSEMIDE 20 MG TAB PO SCH (06:14)
[2022-12-10] MEDS: LEVOTHYROXINE SODIUM 200 MCG TABLET PO SCH (06:14)
[2022-12-10] MEDS: PANTOprazole 40 MG TAB PO SCH (06:14)
[2022-12-10] MEDS: LEVOTHYROXINE SODIUM 25 MCG TABLET PO SCH (06:14)
[2022-12-10] MEDS: ACETAMINOPHEN 500 MG TAB PO SCH ×3 (06:14→21:14)
[2022-12-10] MEDS: ALBUT/IPRATROP 3MG/0.5MG NEB 3 ML VIAL NEB PRN ×2 (07:28→15:38)
[2022-12-10] MEDS: SERTRALINE HCL 50 MG TABLET PO SCH (07:41)
[2022-12-10] MEDS: ASPIRIN 81 MG ECTAB PO SCH (07:41)
[2022-12-10] MEDS: TOPIRAMATE 100 MG TAB PO SCH ×2 (07:41→21:16)
[2022-12-10] MEDS: MAGNESIUM OXIDE 400 MG TAB PO SCH (07:42)
[2022-12-10] MEDS: MULTIVITAMIN TAB PO SCH (07:42)
[2022-12-10] MEDS: AZITHROMYCIN 250 MG TAB PO SCH (07:42)
[2022-12-10] MEDS: CHOLECALCIFEROL 1,000 UNITS 25 MCG TAB PO SCH (07:43)
[2022-12-10] MEDS: ISOSORBIDE MONO EXTENDED REL 30 MG TABCR PO SCH (07:43)
[2022-12-10] MEDS: buPROPion SR 100 MG TABCR PO SCH ×2 (07:43→21:17)
[2022-12-10] MEDS: EMPAGLIFLOZIN 10 MG TAB PO SCH (07:43)
[2022-12-10] MEDS: SPIRONOLACTONE 25 MG TAB PO SCH (07:43)
[2022-12-10] MEDS: FOLIC ACID 1 MG TAB PO SCH (07:43)
[2022-12-10] MEDS: METOPROLOL TARTRATE 25 MG TAB PO SCH ×2 (07:44→21:19)
[2022-12-10] MEDS: ENOXAPARIN INJ 40 MG/0.4 ML SYR SQ SCH ×2 (07:44→21:17)
[2022-12-10] MEDS: DOCUSATE SODIUM 100 MG CAP PO SCH ×2 (07:44→21:18)
[2022-12-10] MEDS: DICLOFENAC SOD 1% GEL 100 GM TUBE EXT SCH ×4 (07:45→21:18)
[2022-12-10] MEDS: BACITRACIN OINT 15 GM TUBE EXT SCH ×2 (07:45→21:12)
[2022-12-10] MEDS: INSULIN, Rapid-Acting PUMP SCH ×4 (09:36→21:32)
[2022-12-10] MEDS: CALCIUM CITRATE 950 MG TAB PO SCH (12:50)
--- NOTE | 2022-12-10 21:03 | Hospitalist Progress Note ---
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 Appreciate ortho re-consult by Dr Contreras earlier this month. Most recent x-rays with some callus formation over fracture site. Cont nonoperative management. TTWB allowed by Dr Contreras on his last visit with her. Cont tylenol 1gm TID. Cont oxy 10mg prn. Cont voltaren gel qid. (2) Adjustment disorder with depressed mood: Plan: depressed due to PROLONGED institutionalized status (here, [facility], [facility], etc), not being able to see her daughter, poor sleep, etc remains on wellbutrin 100mg qam + wellbutrin 200mg qhs along with topamax 100mg qam and 200mg qhs sertraline 25mg daily initiated on 11/28/22 ; consider increase to 50mg daily tolerating thus far previous TSH, B12, 25-OH vit D levels -- all wnl (3) Acute on chronic combined systolic and diastolic CHF (congestive heart failure): Plan: Euvolemic. Cont torsemide 20 mg daily and prn dose for weight gain. Continue spironolactone, metoprolol, isosorbide mononitrate, ASA, atorvastatin. Last echo - 09/2022 with EF 45-50%. (4) Type 2 diabetes mellitus: Plan: On insulin pump with excellent readings overall but has had some recent lows. Basal rate reduced. CC reduced. Appreciate Penny Cook - MENAE - recommendations. Most recent a1c = 7.2% in 10/2022. Cont jardiance. (5) Weakness: Plan: Cont PT/OT as tolerated. Treat underlying depression. Would benefit from rehab at SNF or other facility but patient refusing. (6) Hypothyroidism (acquired): Plan: Continue Levothyroxine. TSH 1.1 on 10/22/22. (7) CKD stage 4 due to type 2 diabetes mellitus: Plan: Baseline creatinine 1.3-1.8. Her CrCl is low 50s c/w CKD stage 3. Repeat labs today -- Cr 1.5; CrCl 50s. STABLE. (8) GERD (gastroesophageal reflux disease): Plan: Continue protonix (9) Anxiety: Plan: cont zoloft (10) Morbid obesity with BMI of 60.0-69.9, adult: Plan: BMI 63-64 (11) Tracheostomy dependence: Plan: for RASHAAD/OHS cont routine trach care (12) Poor social situation: Plan: her prolonged hospital stay is due to disposition difficulties she was previously at [facility] - refuses to go back there she refuses to attend another SNF or go out of the area for placement she wishes to go home by report has a large # of hours (90 by report) approved for in-home personal care; however, finding caregivers has been severely problematic social work has contacted between 20-30 home health agencies to try and secure help to no avail further, she needs a ramp built to be able to enter her home she also needs her entryway door widened to accommodate a large wheelchair social work continues to work on all of the above unfortunately no new leads on securing caregivers for her exhaustive search continues appreciate support given by reel cutter yesterday (13) DVT prophylaxis: Plan: lovenox 40mg BID due to extreme morbid obesity Admission and Anticipated Discharge Date Admission Date: October 01, 2022 Subjective patient very upset about still being in the hospital tearful again did meet with the apprenticeship representative yesterday apprenticeship representative offered to call local churches/parishes to see if there are caregivers in the community to help her at her home Review of Systems Review of Systems: cv - no chest pain pulm - no dyspnea; no trach secretions GI - no abd pain/N/V psych - depressed Physical Exam Physical Exam: gen - morbidly obese, laying in bed comfortably, tearful/upset today neck - metal trach in place - clean mouth - no thrush; MMM heart - RRR, s1 s2, 1/6 PIETER LSB lungs - CTA b/l without wheeze/rales abd - soft NT ND BS+ ext - <1+ edema of feet b/l, pulses 2+ b/l psych - a/o x 3, tearful/depressed skin - dry skin on feet/legs - tinea? Results & Data Results & Data ([facility]) Vital Signs (Past 12 Hours) Vital Signs Vital Signs Temp Pulse Resp BP Pulse Ox O2 Del Method O2 Flow Rate 12/09/22 21:24 36.9 C 89 18 125/71 94 Room Air Laboratory Results Laboratory Results - last 48 hr 12/08/22 12/09/22 12/09/22 23:53 03:58 06:12 POC Glucose 98 78 134 H 12/09/22 12/09/22 12/09/22 08:05 12:02 17:08 POC Glucose 111 H 128 H 216 H PG Care Time/CCT Total # of Minutes Spent Total Time Spent with Patient: Total time spent is greater than 50% in coordination of care (as documented) at patient's floor/unit and/or counseling patient: Coding Level of Care Code 30328 SUB INP/OBS CARE 12/15MIN Diagnoses Fracture of distal end of right femur S72.401A Adjustment disorder with depressed mood F43.21 Acute on chronic combined systolic and diastolic CHF (congestive heart failure) I50.43 Type 2 diabetes mellitus E11.9 Weakness R53.1 Hypothyroidism (acquired) E03.9 CKD stage 4 due to type 2 diabetes mellitus E11.22; N18.4 GERD (gastroesophageal reflux disease) K21.9 Anxiety F41.9 Morbid obesity with BMI of 60.0-69.9, adult E66.01; Z68.44 Tracheostomy dependence Z93.0 Poor social situation Z65.9 DVT prophylaxis Z29.9
--- NOTE | 2022-12-10 21:11 | Hospitalist Progress Note ---
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 Appreciate ortho re-consult by Dr Contreras earlier this month. Most recent x-rays with some callus formation over fracture site. Cont nonoperative management. TTWB allowed by Dr Contreras on his last visit with her. Cont tylenol 1gm TID. Cont oxy 10mg prn. Cont voltaren gel qid. (2) Adjustment disorder with depressed mood: Plan: depressed due to PROLONGED institutionalized status (here, [facility], [facility], etc), not being able to see her daughter, poor sleep, etc remains on wellbutrin 100mg qam + wellbutrin 200mg qhs along with topamax 100mg qam and 200mg qhs sertraline 25mg daily initiated on 11/28/22 ; will increase to 50mg daily starting 12/11/22 previous TSH, B12, 25-OH vit D levels -- all wnl (3) Acute on chronic combined systolic and diastolic CHF (congestive heart failure): Plan: Euvolemic. Cont torsemide 20 mg daily but will give an additional dose tomorrow due to rise in her weights over the last 7-10 days Continue spironolactone, metoprolol, isosorbide mononitrate, ASA, atorvastatin. Last echo - 09/2022 with EF 45-50%. (4) Type 2 diabetes mellitus: Plan: On insulin pump with excellent readings overall but has had some recent lows. Basal rate reduced. CC reduced. Appreciate Penny Cook - CDE - recommendations. With the above changes no further lows. Most recent a1c = 7.2% in 10/2022. Cont jardiance. (5) Weakness: Plan: Cont PT/OT as tolerated. Treat underlying depression. Would benefit from rehab at SNF or other facility. [facility] came to evaluate her today about acute rehab. (6) Hypothyroidism (acquired): Plan: Continue Levothyroxine. TSH 1.1 on 10/22/22. (7) CKD stage 4 due to type 2 diabetes mellitus: Plan: Baseline creatinine 1.3-1.8. Her CrCl is low 50s c/w CKD stage 3. Repeat labs this week -- Cr 1.5; CrCl 50s (8) GERD (gastroesophageal reflux disease): Plan: Continue protonix (9) Anxiety: Plan: cont zoloft increase to 50mg daily starting 12/11/22 (10) Morbid obesity with BMI of 60.0-69.9, adult: Plan: BMI 63-64 (11) Tracheostomy dependence: Plan: for RASHAAD/OHS cont routine trach care (12) Poor social situation: Plan: her prolonged hospital stay is due to disposition difficulties she was previously at [facility] - refuses to go back there she refuses to attend another SNF or go out of the area for placement she wishes to go home by report has a large # of hours (90 by report) approved for in-home personal care; however, finding caregivers has been severely problematic social work has contacted between 20-30 home health agencies to try and secure help to no avail further, she needs a ramp built to be able to enter her home she also needs her entryway door widened to accommodate a large wheelchair social work continues to work on all of the above unfortunately no new leads on securing caregivers for her exhaustive search continues appreciate support given by dry house wheeler this week (13) DVT prophylaxis: Plan: lovenox 40mg BID due to extreme morbid obesity Admission and Anticipated Discharge Date Admission Date: October 01, 2022 Subjective patient reports that she may have caregivers from the [place] area also, representatives from [facility] came to her room today to assess her candidacy for rehab no new issues no new complaints eating well sleeping ok right knee pain is at baseline Review of Systems Review of Systems: cv - no chest pain pulm - no dyspnea GI - no pain Physical Exam Physical Exam: gen - morbidly obese, laying in bed comfortably, agitated today neck - metal trach in place - clean mouth - no thrush; MMM heart - RRR, s1 s2, 1/6 PIETER LSB lungs - CTA b/l without wheeze/rales abd - soft NT ND BS+ ext - <1+ edema of feet b/l, pulses 2+ b/l psych - a/o x 3, tearful/depressed skin - dry skin on feet/legs - perhaps tinea Results & Data Results & Data ([facility]) Vital Signs (Past 12 Hours) Vital Signs Temp Pulse Resp BP Pulse Ox O2 Del Method 12/10/22 15:38 72 20 94 Room Air 12/10/22 14:48 36.8 C 73 20 109/65 96 Room Air Laboratory Results Laboratory Results - last 24 hr 12/10/22 12/10/22 12/10/22 08:18 12:18 17:33 POC Glucose 93 110 H 129 H 12/10/22 21:07 POC Glucose 153 H PG Care Time/CCT Total # of Minutes Spent Total Time Spent with Patient: Total time spent is greater than 50% in coordination of care (as documented) at patient's floor/unit and/or counseling patient: Coding Level of Care Code 73273 SUB INP/OBS CARE 12/15MIN Diagnoses Fracture of distal end of right femur S72.401A Adjustment disorder with depressed mood F43.21 Acute on chronic combined systolic and diastolic CHF (congestive heart failure) I50.43 Type 2 diabetes mellitus E11.9 Weakness R53.1 Hypothyroidism (acquired) E03.9 CKD stage 4 due to type 2 diabetes mellitus E11.22; N18.4 GERD (gastroesophageal reflux disease) K21.9 Anxiety F41.9 Morbid obesity with BMI of 60.0-69.9, adult E66.01; Z68.44 Tracheostomy dependence Z93.0 Poor social situation Z65.9 DVT prophylaxis Z29.9
[2022-12-10] MEDS: TORSEMIDE 10 MG TAB PO PRN (21:12)
[2022-12-10] MEDS: KETOCONAZOLE 2% CR 15 GM TUBE EXT SCH (21:14)
[2022-12-10] MEDS: ATORVASTATIN 40 MG TAB PO SCH (21:17)
[2022-12-11] MEDS: oxyCODONE HCL IR 5 MG TAB (IMMEDIATE RELEASE) PO PRN ×2 (02:26→22:45)
[2022-12-11] MEDS: LEVOTHYROXINE SODIUM 25 MCG TABLET PO SCH (06:09)
[2022-12-11] MEDS: PANTOprazole 40 MG TAB PO SCH (06:09)
[2022-12-11] MEDS: LEVOTHYROXINE SODIUM 200 MCG TABLET PO SCH (06:09)
[2022-12-11] MEDS: TORSEMIDE 20 MG TAB PO SCH (06:09)
[2022-12-11] MEDS: ACETAMINOPHEN 500 MG TAB PO SCH ×3 (06:10→21:39)
[2022-12-11] MEDS: ALBUT/IPRATROP 3MG/0.5MG NEB 3 ML VIAL NEB PRN ×2 (07:32→16:02)
[2022-12-11] MEDS: BACITRACIN OINT 15 GM TUBE EXT SCH ×2 (08:11→21:39)
[2022-12-11] MEDS: ASPIRIN 81 MG ECTAB PO SCH (08:11)
[2022-12-11] MEDS: DICLOFENAC SOD 1% GEL 100 GM TUBE EXT SCH ×4 (08:12→21:39)
[2022-12-11] MEDS: CHOLECALCIFEROL 1,000 UNITS 25 MCG TAB PO SCH (08:12)
[2022-12-11] MEDS: buPROPion SR 100 MG TABCR PO SCH ×2 (08:12→21:38)
[2022-12-11] MEDS: ENOXAPARIN INJ 40 MG/0.4 ML SYR SQ SCH ×2 (08:13→21:38)
[2022-12-11] MEDS: DOCUSATE SODIUM 100 MG CAP PO SCH ×2 (08:13→21:39)
[2022-12-11] MEDS: EMPAGLIFLOZIN 10 MG TAB PO SCH (08:14)
[2022-12-11] MEDS: ISOSORBIDE MONO EXTENDED REL 30 MG TABCR PO SCH (08:14)
[2022-12-11] MEDS: FOLIC ACID 1 MG TAB PO SCH (08:14)
[2022-12-11] MEDS: KETOCONAZOLE 2% CR 15 GM TUBE EXT SCH ×2 (08:15→21:40)
[2022-12-11] MEDS: MAGNESIUM OXIDE 400 MG TAB PO SCH (08:16)
[2022-12-11] MEDS: MULTIVITAMIN TAB PO SCH (08:17)
[2022-12-11] MEDS: METOPROLOL TARTRATE 25 MG TAB PO SCH ×2 (08:17→21:39)
[2022-12-11] MEDS: SERTRALINE HCL 50 MG TABLET PO SCH (08:18)
[2022-12-11] MEDS: TOPIRAMATE 100 MG TAB PO SCH ×2 (08:18→21:39)
[2022-12-11] MEDS: SPIRONOLACTONE 25 MG TAB PO SCH (08:19)
[2022-12-11] MEDS: INSULIN, Rapid-Acting PUMP SCH ×4 (11:18→21:40)
[2022-12-11] MEDS: CALCIUM CITRATE 950 MG TAB PO SCH (13:39)
[2022-12-11] MEDS ORDERED: POTASSIUM CHLORIDE CRTAB 20 MEQ TABCR PO ONE (15:00)
[2022-12-11] MEDS ORDERED: TORSEMIDE 10 MG TAB PO ONE (15:00)
[2022-12-11] MEDS: ATORVASTATIN 40 MG TAB PO SCH (21:39)
--- NOTE | 2022-12-11 22:06 | Hospitalist Progress Note ---
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 Most recent x-rays (11/28/22) with some callus formation over fracture site. Cont nonoperative management. TTWB allowed by Dr Contreras. Cont tylenol 1gm TID. Cont oxy 10mg prn. Cont voltaren gel qid. (2) Adjustment disorder with depressed mood: Plan: depressed due to PROLONGED institutionalized status (here, [facility], , etc), not being able to see her daughter, poor sleep, etc remains on wellbutrin 100mg qam + wellbutrin 200mg qhs along with topamax 100mg qam and 200mg qhs sertraline 25mg daily initiated on 11/28/22 ; increased the dose to 50mg daily starting today previous TSH, B12, 25-OH vit D levels -- all wnl (3) Acute on chronic combined systolic and diastolic CHF (congestive heart failure): Plan: Cont torsemide 20 mg daily. Give additional dose of 20mg this afternoon due to slowly rising weights over the last 2 weeks. Check BMP am. Continue spironolactone, metoprolol, isosorbide mononitrate, ASA, atorvastatin. Last echo - 09/2022 with EF 45-50%. (4) Type 2 diabetes mellitus: Plan: On insulin pump with excellent readings last 48 hours and no hypoglycemia. Most recent a1c = 7.2% in 10/2022. Cont jardiance. (5) Weakness: Plan: Cont PT/OT as tolerated. Treat underlying depression. Would benefit from rehab at SNF or other facility. [facility] came to evaluate her yesterday about acute rehab. (6) Hypothyroidism (acquired): Plan: Continue Levothyroxine. TSH 1.1 on 10/22/22. (7) CKD stage 4 due to type 2 diabetes mellitus: Plan: Baseline creatinine 1.3-1.8. Her CrCl is low 50s c/w CKD stage 3. Repeat BMP in am due to extra dose of diuretic today. (8) GERD (gastroesophageal reflux disease): Plan: Continue protonix (9) Anxiety: Plan: cont zoloft increase to 50mg daily today (10) Morbid obesity with BMI of 60.0-69.9, adult: Plan: BMI 63-64 (11) Tracheostomy dependence: Plan: for RASHAAD/OHS cont routine trach care (12) Poor social situation: Plan: her prolonged hospital stay is due to disposition difficulties she was previously at [facility] - refuses to go back there she refuses to attend another SNF or go out of the area for placement she wishes to go home by report has a large # of hours (90 by report) approved for in-home personal care; however, finding caregivers has been severely problematic social work has contacted between 20-30 home health agencies to try and secure help to no avail further, she needs a ramp built to be able to enter her home she also needs her entryway door widened to accommodate a large wheelchair social work continues to work on all of the above unfortunately no new leads on securing caregivers for her exhaustive search continues appreciate support given by purchasing supervisor this week (13) DVT prophylaxis: Plan: lovenox 40mg BID due to extreme morbid obesity Plan update pt's daughter tomorrow Admission and Anticipated Discharge Date Admission Date: October 01, 2022 Subjective no issues or new complaints today eating well no pain any location no dyspnea Physical Exam Physical Exam: gen - morbidly obese, laying in bed comfortably, NAD anterior neck - metal trach in place - clean heart - RRR, s1 s2, 1/6 PIETER LSB lungs - CTA b/l without wheeze/rales abd - soft NT ND BS+ ext - <1+ edema of feet b/l, pulses 2+ b/l psych - a/o x 3 Results & Data Results & Data ([facility]) Vital Signs (Past 12 Hours) Vital Signs Temp Pulse Resp BP Pulse Ox O2 Del Method 12/11/22 20:55 36.8 C 90 16 123/72 94 Room Air 12/11/22 16:02 79 18 97 Room Air 12/11/22 15:37 36.9 C 73 16 118/66 94 Room Air Laboratory Results Laboratory Results - last 24 hr 12/11/22 12/11/22 12/11/22 08:16 12:18 17:18 POC Glucose 99 80 230 H 12/11/22 20:40 POC Glucose 187 H PG Care Time/CCT Total # of Minutes Spent Total Time Spent with Patient: Total time spent is greater than 50% in coordination of care (as documented) at patient's floor/unit and/or counseling patient: Coding Level of Care Code 96794 SUB INP/OBS CARE Diagnoses Fracture of distal end of right femur S72.401A Adjustment disorder with depressed mood F43.21 Acute on chronic combined systolic and diastolic CHF (congestive heart failure) I50.43 Type 2 diabetes mellitus E11.9 Weakness R53.1 Hypothyroidism (acquired) E03.9 CKD stage 4 due to type 2 diabetes mellitus E11.22; N18.4 GERD (gastroesophageal reflux disease) K21.9 Anxiety F41.9 Morbid obesity with BMI of 60.0-69.9, adult E66.01; Z68.44 Tracheostomy dependence Z93.0 Poor social situation Z65.9 DVT prophylaxis Z29.9
[2022-12-12] MEDS: LEVOTHYROXINE SODIUM 25 MCG TABLET PO SCH (06:03)
[2022-12-12] MEDS: LEVOTHYROXINE SODIUM 200 MCG TABLET PO SCH (06:03)
[2022-12-12] MEDS: TORSEMIDE 20 MG TAB PO SCH (06:03)
[2022-12-12] MEDS: PANTOprazole 40 MG TAB PO SCH (06:03)
[2022-12-12] MEDS: ACETAMINOPHEN 500 MG TAB PO SCH ×3 (06:04→21:24)
[2022-12-12] MEDS: ALBUT/IPRATROP 3MG/0.5MG NEB 3 ML VIAL NEB PRN ×2 (07:45→15:11)
[2022-12-12 08:02] LABS: Calcium 8.7 mg/dl (8.5-10.1); Potassium 3.9 mmol/L (3.5-5.1)
[2022-12-12 08:07] LABS: BUN Creatinine Ratio 21.9 (10-20); Creatinine Clr Calc Pharmacy 55.7 ml/min; Est GFR (Non-African American) 37.1 ml/min
[2022-12-12] MEDS: TOPIRAMATE 100 MG TAB PO SCH ×2 (08:33→21:22)
[2022-12-12] MEDS: MULTIVITAMIN TAB PO SCH (08:34)
[2022-12-12] MEDS: buPROPion SR 100 MG TABCR PO SCH ×2 (08:34→21:20)
[2022-12-12] MEDS: SERTRALINE HCL 50 MG TABLET PO SCH (08:34)
[2022-12-12] MEDS: METOPROLOL TARTRATE 25 MG TAB PO SCH ×2 (08:35→21:20)
[2022-12-12] MEDS: SPIRONOLACTONE 25 MG TAB PO SCH (08:35)
[2022-12-12] MEDS: FOLIC ACID 1 MG TAB PO SCH (08:35)
[2022-12-12] MEDS: ASPIRIN 81 MG ECTAB PO SCH (08:36)
[2022-12-12] MEDS: EMPAGLIFLOZIN 10 MG TAB PO SCH (08:37)
[2022-12-12] MEDS: DOCUSATE SODIUM 100 MG CAP PO SCH ×2 (08:37→21:22)
[2022-12-12] MEDS: MAGNESIUM OXIDE 400 MG TAB PO SCH (08:37)
[2022-12-12] MEDS: ISOSORBIDE MONO EXTENDED REL 30 MG TABCR PO SCH (08:38)
[2022-12-12] MEDS: CHOLECALCIFEROL 1,000 UNITS 25 MCG TAB PO SCH (08:38)
[2022-12-12] MEDS: BACITRACIN OINT 15 GM TUBE EXT SCH ×2 (08:39→21:23)
[2022-12-12] MEDS: DICLOFENAC SOD 1% GEL 100 GM TUBE EXT SCH ×4 (08:39→21:23)
[2022-12-12] MEDS: ENOXAPARIN INJ 40 MG/0.4 ML SYR SQ SCH ×2 (08:40→21:22)
[2022-12-12] MEDS: KETOCONAZOLE 2% CR 15 GM TUBE EXT SCH ×2 (08:40→21:24)
[2022-12-12] MEDS: INSULIN, Rapid-Acting PUMP SCH ×4 (10:28→21:30)
[2022-12-12] MEDS: CALCIUM CITRATE 950 MG TAB PO SCH (14:12)
--- NOTE | 2022-12-12 20:49 | Hospitalist Progress Note ---
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 Most recent x-rays (11/28/22) with some callus formation over fracture site. Cont nonoperative management. TTWB allowed by Dr Contreras to RLE (see his note). Cont tylenol 1gm TID. Cont oxy 10mg prn. Cont voltaren gel qid. No c/o pain over last few days. (2) Adjustment disorder with depressed mood: Plan: stable, modestly improved. depressed due to PROLONGED institutionalized status (here, [facility], multiple SNF, etc), not being able to see her daughter, poor sleep, etc remains on wellbutrin 100mg qam + wellbutrin 200mg qhs along with topamax 100mg qam and 200mg qhs sertraline 25mg daily initiated on 11/28/22 ; increased the dose to 50mg daily on 12/11/22. previous TSH, B12, 25-OH vit D levels -- all wnl (3) Acute on chronic combined systolic and diastolic CHF (congestive heart failure): Plan: Cont torsemide 20 mg daily. Give additional dose of 20mg yesterday due to slowly rising weights over the last 2 weeks. BMP today wnl. Consider additional dose tomorrow. Continue spironolactone, metoprolol, isosorbide mononitrate, ASA, atorvastatin. Last echo - 09/2022 with EF 45-50%. (4) Type 2 diabetes mellitus: Plan: On insulin pump with excellent readings last 48 hours and no hypoglycemia. Most recent a1c = 7.2% in 10/2022. Cont jardiance. (5) Weakness: Plan: Cont PT/OT as tolerated. Treat underlying depression. Would benefit from rehab at SNF or other facility. [facility] came to evaluate her yesterday about acute rehab. (6) Hypothyroidism (acquired): Plan: Continue Levothyroxine. TSH 1.1 on 10/22/22. (7) CKD stage 4 due to type 2 diabetes mellitus: Plan: Baseline creatinine 1.3-1.8. Her CrCl is low 50s c/w CKD stage 3. BMP today with Cr 1.4. (8) GERD (gastroesophageal reflux disease): Plan: Continue protonix (9) Anxiety: Plan: cont zoloft 50mg daily (10) Morbid obesity with BMI of 60.0-69.9, adult: Plan: BMI 63-64 (11) Tracheostomy dependence: Plan: for RASHAAD/OHS cont routine trach care (12) Poor social situation: Plan: her prolonged hospital stay is due to disposition difficulties she was previously at [facility] - refuses to go back there she refuses to attend another SNF or go out of the [facility] for placement she wishes to go home with caregivers/HH by report has a large # of hours (90 by report) approved for in-home personal care; however, finding caregivers has been severely problematic social work has contacted between 20-30 home health agencies to try and secure help to no avail further, she needs a ramp built to be able to enter her home she also needs her entryway door widened to accommodate a large wheelchair social work continues to work on all of the above unfortunately no new leads on securing caregivers for her exhaustive search continues appreciate support given by bridge rigger this past week (13) DVT prophylaxis: Plan: lovenox 40mg BID due to extreme morbid obesity Plan update pt's daughter Carmen today Admission and Anticipated Discharge Date Admission Date: October 01, 2022 Subjective patient denies any new complaints feels well eating well no dyspnea no cough no sputum via trach had copious diuresis yesterday states zoloft is helping her moods/anxiety Review of Systems Review of Systems: cv - no chest pain pulm - no dyspnea GI - no nausea/emesis Physical Exam Physical Exam: gen - morbidly obese, NAD anterior neck - metal trach clean heart - RRR, s1 s2, 1/6 PIETER LSB lungs - CTA b/l without wheeze/rales; airation wnl abd - soft NT ND BS+ ext - <1+ edema of feet b/l - no change, pulses 2+ b/l psych - a/o x 3 Results & Data Results & Data ([facility]) Vital Signs (Past 12 Hours) Vital Signs Temp Pulse Resp BP Pulse Ox O2 Del Method 12/12/22 19:42 Room Air, Trach Collar 12/12/22 15:31 36.7 C 73 20 143/69 H 93 Room Air 12/12/22 15:18 75 20 92 Room Air Laboratory Results Laboratory Results - last 24 hr 12/12/22 12/12/22 12/12/22 06:36 08:18 12:13 Sodium 140 Potassium 3.9 Chloride 109 H Carbon Dioxide 25 Anion Gap 6 BUN 32 H Creatinine 1.46 H Est Cr Clr Drug Dosing 55.7 Est GFR ( Amer) 43.0 Est GFR (Non-Af Amer) 37.1 BUN/Creatinine Ratio 21.9 H Glucose 106 H POC Glucose 95 119 H Calcium 8.7 12/12/22 16:59 Sodium Potassium Chloride Carbon Dioxide Anion Gap BUN Creatinine Est Cr Clr Drug Dosing Est GFR ( Amer) Est GFR (Non-Af Amer) BUN/Creatinine Ratio Glucose POC Glucose 157 H Calcium PG Care Time/CCT Total # of Minutes Spent Total Time Spent with Patient: Total time spent is greater than 50% in coordination of care (as documented) at patient's floor/unit and/or counseling patient: Coding Level of Care Code 00571 SUB INP/OBS CARE 12/15MIN Diagnoses Fracture of distal end of right femur S72.401A Adjustment disorder with depressed mood F43.21 Acute on chronic combined systolic and diastolic CHF (congestive heart failure) I50.43 Type 2 diabetes mellitus E11.9 Weakness R53.1 Hypothyroidism (acquired) E03.9 CKD stage 4 due to type 2 diabetes mellitus E11.22; N18.4 GERD (gastroesophageal reflux disease) K21.9 Anxiety F41.9 Morbid obesity with BMI of 60.0-69.9, adult E66.01; Z68.44 Tracheostomy dependence Z93.0 Poor social situation Z65.9 DVT prophylaxis Z29.9
[2022-12-12] MEDS: ATORVASTATIN 40 MG TAB PO SCH (21:21)
[2022-12-13] MEDS: PANTOprazole 40 MG TAB PO SCH (05:48)
[2022-12-13] MEDS: TORSEMIDE 20 MG TAB PO SCH (05:48)
[2022-12-13] MEDS: LEVOTHYROXINE SODIUM 25 MCG TABLET PO SCH (05:48)
[2022-12-13] MEDS: LEVOTHYROXINE SODIUM 200 MCG TABLET PO SCH (05:49)
[2022-12-13] MEDS: ACETAMINOPHEN 500 MG TAB PO SCH ×3 (05:49→21:16)
[2022-12-13] MEDS: oxyCODONE HCL IR 5 MG TAB (IMMEDIATE RELEASE) PO PRN ×2 (05:52→14:21)
[2022-12-13] MEDS: ALBUT/IPRATROP 3MG/0.5MG NEB 3 ML VIAL NEB PRN (07:26)
[2022-12-13] MEDS: AZITHROMYCIN 250 MG TAB PO SCH (08:15)
[2022-12-13] MEDS: FOLIC ACID 1 MG TAB PO SCH (08:16)
[2022-12-13] MEDS: ISOSORBIDE MONO EXTENDED REL 30 MG TABCR PO SCH (08:16)
[2022-12-13] MEDS: MULTIVITAMIN TAB PO SCH (08:17)
[2022-12-13] MEDS: TOPIRAMATE 100 MG TAB PO SCH ×2 (08:17→21:16)
[2022-12-13] MEDS: SERTRALINE HCL 50 MG TABLET PO SCH (08:17)
[2022-12-13] MEDS: ASPIRIN 81 MG ECTAB PO SCH (08:18)
[2022-12-13] MEDS: EMPAGLIFLOZIN 10 MG TAB PO SCH (08:18)
[2022-12-13] MEDS: CHOLECALCIFEROL 1,000 UNITS 25 MCG TAB PO SCH (08:18)
[2022-12-13] MEDS: MAGNESIUM OXIDE 400 MG TAB PO SCH (08:18)
[2022-12-13] MEDS: buPROPion SR 100 MG TABCR PO SCH ×2 (08:19→21:16)
[2022-12-13] MEDS: METOPROLOL TARTRATE 25 MG TAB PO SCH ×2 (08:19→21:17)
[2022-12-13] MEDS: DICLOFENAC SOD 1% GEL 100 GM TUBE EXT SCH ×4 (08:20→21:17)
[2022-12-13] MEDS: BACITRACIN OINT 15 GM TUBE EXT SCH ×2 (08:20→21:17)
[2022-12-13] MEDS: KETOCONAZOLE 2% CR 15 GM TUBE EXT SCH ×2 (08:20→21:17)
[2022-12-13] MEDS: ENOXAPARIN INJ 40 MG/0.4 ML SYR SQ SCH ×2 (08:22→21:17)
[2022-12-13] MEDS: DOCUSATE SODIUM 100 MG CAP PO SCH ×2 (08:22→21:16)
[2022-12-13] MEDS: SPIRONOLACTONE 25 MG TAB PO SCH (09:21)
[2022-12-13] MEDS: INSULIN, Rapid-Acting PUMP SCH ×4 (09:22→21:19)
[2022-12-13] MEDS: CALCIUM CITRATE 950 MG TAB PO SCH (12:56)
[2022-12-13] MEDS ORDERED: TORSEMIDE 10 MG TAB PO ONE (13:00)
--- NOTE | 2022-12-13 20:29 | Hospitalist Progress Note ---
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 Most recent x-rays (11/28/22) with some callus formation over fracture site. Cont nonoperative management. TTWB allowed by Dr Contreras to RLE (see his note). However, patient prefers total non-weight bearing to the RLE. Pain regimen - Cont tylenol 1gm TID. Cont oxy 10mg prn. Cont voltaren gel qid. No c/o pain over last few days. (2) Adjustment disorder with depressed mood: Plan: stable, improving. depressed due to PROLONGED institutionalized status (here, [facility], multiple SNF, etc), not being able to see her daughter, poor sleep, etc remains on wellbutrin 100mg qam + wellbutrin 200mg qhs along with topamax 100mg qam and 200mg qhs sertraline 25mg daily initiated on 11/28/22 ; increased the dose to 50mg daily on 12/11/22. tolerating increase; no side effects. previous TSH, B12, 25-OH vit D levels -- all wnl (3) Acute on chronic combined systolic and diastolic CHF (congestive heart failure): Plan: Cont torsemide 20 mg daily. Give additional dose of 20mg yesterday due to slowly rising weights over the last 2 weeks. Give additional dose this afternoon. Continue spironolactone, metoprolol, isosorbide mononitrate, ASA, atorvastatin. Last echo - 09/2022 with EF 45-50%. (4) Type 2 diabetes mellitus: Plan: On insulin pump with excellent readings last 48 hours and no hypoglycemia. Most recent a1c = 7.2% in 10/2022. Cont jardiance. (5) Weakness: Plan: Cont PT/OT as tolerated. Treat underlying depression. Would benefit from rehab at SNF or other facility but patient not interested. [facility] came to evaluate her last week about acute rehab but patient not interested. Only desire is to go home. (6) Hypothyroidism (acquired): Plan: Continue Levothyroxine. TSH 1.1 on 10/22/22. (7) CKD stage 4 due to type 2 diabetes mellitus: Plan: Baseline creatinine 1.3-1.8. Her CrCl is low 50s c/w CKD stage 3. Most recent Cr 1.4. (8) GERD (gastroesophageal reflux disease): Plan: Continue protonix (9) Anxiety: Plan: cont zoloft 50mg daily (10) Morbid obesity with BMI of 60.0-69.9, adult: Plan: BMI 63-64 (11) Tracheostomy dependence: Plan: for RASHAAD/O[facility] cont routine trach care (12) Poor social situation: Plan: her prolonged hospital stay is due to disposition difficulties she was previously at [facility] - refuses to go back there she refuses to attend another SNF or go out of the [facility] for placement she wishes to go home with caregivers/HH by report has a large # of hours (90 by report) approved for in-home personal care; however, finding caregivers has been severely problematic social work has contacted between 20-30 home health agencies to try and secure help to no avail further, she needs a ramp built to be able to enter her home she also needs her entryway door widened to accommodate a large wheelchair social work continues to work on all of the above unfortunately no new leads on securing caregivers for her exhaustive search continues appreciate support given by nicu rn (13) DVT prophylaxis: Plan: lovenox 40mg BID due to extreme morbid obesity Plan updated pt's daughter Carmen yesterday Admission and Anticipated Discharge Date Admission Date: October 01, 2022 Subjective no new issues feels good no dyspnea, significant cough, drainage from trach, etc asks to speak with nicu rn again at [facility] Review of Systems Review of Systems: gen - no fever cv - no chest pain pulm - no dyspnea GI - moving bowels, no nausea/emesis musculo - chronic right knee pain - controlled Physical Exam Physical Exam: gen - morbidly obese, NAD, laying in bed comfortably anterior neck - metal trach clean heart - RRR, s1 s2, no murmur lungs - CTA b/l without wheeze/rales; airation wnl abd - soft NT ND BS+ ext - trace edema of feet b/l, pulses 2+ b/l psych - a/o x 3 skin - tinea vs xerosis b/l feet Results & Data Results & Data ([facility]) Vital Signs (Past 12 Hours) 0814am: 158.1 kg T 36.7 P 72 RR 18 BP 125/77 O2 sats 96% in room air Laboratory Results Laboratory Results - last 48 hr 12/13/22 12/13/22 12/13/22 08:11 12:03 17:30 POC Glucose 95 115 H 197 H 12/13/22 20:38 POC Glucose 141 H PG Care Time/CCT Total # of Minutes Spent Total Time Spent with Patient: Total time spent is greater than 50% in coordination of care (as documented) at patient's floor/unit and/or counseling patient: Coding Level of Care Code 14119 SUB INP/OBS CARE 12/15MIN Diagnoses Fracture of distal end of right femur S72.401A Adjustment disorder with depressed mood F43.21 Acute on chronic combined systolic and diastolic CHF (congestive heart failure) I50.43 Type 2 diabetes mellitus E11.9 Weakness R53.1 Hypothyroidism (acquired) E03.9 CKD stage 4 due to type 2 diabetes mellitus E11.22; N18.4 GERD (gastroesophageal reflux disease) K21.9 Anxiety F41.9 Morbid obesity with BMI of 60.0-69.9, adult E66.01; Z68.44 Tracheostomy dependence Z93.0 Poor social situation Z65.9 DVT prophylaxis Z29.9
[2022-12-13] MEDS: ATORVASTATIN 40 MG TAB PO SCH (21:16)
[2022-12-14] MEDS: LEVOTHYROXINE SODIUM 200 MCG TABLET PO SCH (06:01)
[2022-12-14] MEDS: TORSEMIDE 20 MG TAB PO SCH (06:01)
[2022-12-14] MEDS: LEVOTHYROXINE SODIUM 25 MCG TABLET PO SCH (06:01)
[2022-12-14] MEDS: ACETAMINOPHEN 500 MG TAB PO SCH ×3 (06:01→21:49)
[2022-12-14] MEDS: PANTOprazole 40 MG TAB PO SCH (06:01)
[2022-12-14] MEDS: ALBUT/IPRATROP 3MG/0.5MG NEB 3 ML VIAL NEB PRN ×2 (07:39→15:20)
[2022-12-14] MEDS: KETOCONAZOLE 2% CR 15 GM TUBE EXT SCH ×2 (09:03→21:49)
[2022-12-14] MEDS: BACITRACIN OINT 15 GM TUBE EXT SCH ×2 (09:04→21:49)
[2022-12-14] MEDS: DICLOFENAC SOD 1% GEL 100 GM TUBE EXT SCH ×4 (09:04→21:49)
[2022-12-14] MEDS: SERTRALINE HCL 50 MG TABLET PO SCH (09:08)
[2022-12-14] MEDS: MULTIVITAMIN TAB PO SCH (09:08)
[2022-12-14] MEDS: TOPIRAMATE 100 MG TAB PO SCH ×2 (09:08→21:49)
[2022-12-14] MEDS: ASPIRIN 81 MG ECTAB PO SCH (09:08)
[2022-12-14] MEDS: MAGNESIUM OXIDE 400 MG TAB PO SCH (09:08)
[2022-12-14] MEDS: EMPAGLIFLOZIN 10 MG TAB PO SCH (09:08)
[2022-12-14] MEDS: DOCUSATE SODIUM 100 MG CAP PO SCH ×2 (09:08→21:49)
[2022-12-14] MEDS: FOLIC ACID 1 MG TAB PO SCH (09:08)
[2022-12-14] MEDS: ISOSORBIDE MONO EXTENDED REL 30 MG TABCR PO SCH (09:08)
[2022-12-14] MEDS: SPIRONOLACTONE 25 MG TAB PO SCH (09:08)
[2022-12-14] MEDS: CHOLECALCIFEROL 1,000 UNITS 25 MCG TAB PO SCH (09:08)
[2022-12-14] MEDS: buPROPion SR 100 MG TABCR PO SCH ×2 (09:08→21:49)
[2022-12-14] MEDS: METOPROLOL TARTRATE 25 MG TAB PO SCH ×2 (09:08→21:50)
[2022-12-14] MEDS: ENOXAPARIN INJ 40 MG/0.4 ML SYR SQ SCH ×2 (09:09→21:49)
[2022-12-14] MEDS: INSULIN, Rapid-Acting PUMP SCH ×4 (09:47→21:49)
[2022-12-14] MEDS ORDERED: TORSEMIDE 10 MG TAB PO ONE (13:00)
[2022-12-14] MEDS: CALCIUM CITRATE 950 MG TAB PO SCH (14:57)
[2022-12-14] MEDS: ATORVASTATIN 40 MG TAB PO SCH (21:49)
--- NOTE | 2022-12-14 23:06 | Hospitalist Progress Note ---
Date of Service December 14, 2022 Assessment & Plan (1) Fracture of distal end of right femur: Plan: Chronic nonunion of RIGHT DISTAL FEMUR fracture with resulting severe ambulatory dysfunction. Most recent x-rays (11/28/22) with some callus formation over fracture site. Cont nonoperative management. TTWB allowed by Dr Contreras to RLE as of 11/29/22. Pt prefers total non-weightbearing to the RLE, however. Pain regimen -- Cont tylenol 1gm TID. Cont oxy 10mg prn. Cont voltaren gel qid. (2) Adjustment disorder with depressed mood: Plan: stable, improving. depressed due to PROLONGED institutionalized status (here, [facility], multiple SNF, etc), not being able to see her daughter, poor sleep, etc remains on wellbutrin 100mg qam + wellbutrin 200mg qhs along with topamax 100mg qam and 200mg qhs sertraline 25mg daily initiated on 11/28/22 ; increased the dose to 50mg daily on 12/11/22. could increase to 75mg in early December, if needed. previous TSH, B12, 25-OH vit D levels -- all wnl (3) Acute on chronic combined systolic and diastolic CHF (congestive heart failure): Plan: Cont torsemide 20 mg daily. Give additional dose of 10mg today. Of note - weights had been rising slowly over the last 2-3 weeks. Check BMP in am. Continue spironolactone, metoprolol, isosorbide mononitrate, ASA, atorvastatin. Last echo - 09/2022 with EF 45-50%. (4) Type 2 diabetes mellitus: Plan: On insulin pump with excellent readings (<200 all times) and no hypoglycemia. Most recent a1c = 7.2% in 10/2022. Cont jardiance. (5) Weakness: Plan: Cont PT/OT as tolerated. Treat underlying depression. Would benefit from rehab at SNF or other facility but refusing - will only entertain idea of going home with caregivers. She lives with her daughter Carmen who is disabled. (6) Hypothyroidism (acquired): Plan: Continue Levothyroxine. TSH 1.1 on 10/22/22. (7) CKD stage 4 due to type 2 diabetes mellitus: Plan: Baseline creatinine 1.3-1.8. Her CrCl is low 50s c/w CKD stage 3. BMP in am. (8) GERD (gastroesophageal reflux disease): Plan: Continue protonix (9) Anxiety: Plan: cont zoloft 50mg daily (10) Morbid obesity with BMI of 60.0-69.9, adult: Plan: BMI 63-64 (11) Tracheostomy dependence: Plan: for RASHAAD/OHS cont routine trach care (12) Poor social situation: Plan: her prolonged hospital stay is due to disposition difficulties she was previously at [facility] - refuses to go back there she refuses to attend another SNF or go out of the [facility] for placement she wishes to go home with caregivers/HH by report has a large # of hours (90 by report) approved for in-home personal care; however, finding caregivers has been severely problematic social work has contacted between 20-30 home health agencies to try and secure help to no avail further, she needs a ramp built to be able to enter her home she also needs her entryway door widened to accommodate a large wheelchair social work continues to work on all of the above unfortunately no new leads on securing caregivers for her exhaustive search continues appreciate support given by bead preparer this past week patient wants to see bead preparer again - consult placed again today (13) DVT prophylaxis: Plan: lovenox 40mg BID due to extreme morbid obesity Admission and Anticipated Discharge Date Admission Date: October 01, 2022 Subjective no events overnight feels same as yesterday eating well sleeping poorly unfortunately which is chronic issue breathing comfortably Review of Systems Review of Systems: gen - no pain except right knee cv - no chest pain, no orthopnea; edema is improved pulm - no cough or dyspnea GI - no pain, moving bowels Physical Exam Physical Exam: gen - morbidly obese, NAD anterior neck - metal trach clean heart - RRR, s1 s2, no murmur lungs - CTA b/l without wheeze/rales; airation wnl abd - soft NT ND BS+ ext - trace edema of feet b/l - no change, pulses 2+ b/l psych - a/o x 3; affect more full skin - tinea pedis b/l feet improved Results & Data Results & Data ([facility]) Vital Signs (Past 12 Hours) Vital Signs Temp Pulse Resp BP Pulse Ox O2 Del Method 12/14/22 21:50 84 135/70 01/24/23 20:28 36.6 C 81 20 118/48 L 93 Room Air 12/14/22 19:25 Trach Collar 12/14/22 15:20 84 18 94 Room Air Laboratory Results Laboratory Results - last 24 hr 12/14/22 12/14/22 12/14/22 08:32 12:25 17:32 POC Glucose 119 H 141 H 177 H 12/14/22 20:25 POC Glucose 189 H PG Care Time/CCT Total # of Minutes Spent Total Time Spent with Patient: Total time spent is greater than 50% in coordination of care (as documented) at patient's floor/unit and/or counseling patient: Coding Level of Care Code 64335 SUB INP/OBS CARE 12/15MIN Diagnoses Fracture of distal end of right femur S72.401A Adjustment disorder with depressed mood F43.21 Acute on chronic combined systolic and diastolic CHF (congestive heart failure) I50.43 Type 2 diabetes mellitus E11.9 Weakness R53.1 Hypothyroidism (acquired) E03.9 CKD stage 4 due to type 2 diabetes mellitus E11.22; N18.4 GERD (gastroesophageal reflux disease) K21.9 Anxiety F41.9 Morbid obesity with BMI of 60.0-69.9, adult E66.01; Z68.44 Tracheostomy dependence Z93.0 Poor social situation Z65.9 DVT prophylaxis Z29.9
[2022-12-15] MEDS: LEVOTHYROXINE SODIUM 200 MCG TABLET PO SCH (06:06)
[2022-12-15] MEDS: LEVOTHYROXINE SODIUM 25 MCG TABLET PO SCH (06:06)
[2022-12-15] MEDS: PANTOprazole 40 MG TAB PO SCH (06:06)
[2022-12-15] MEDS: ACETAMINOPHEN 500 MG TAB PO SCH ×3 (06:06→21:33)
[2022-12-15] MEDS: TORSEMIDE 20 MG TAB PO SCH (06:06)
[2022-12-15] MEDS: ALBUT/IPRATROP 3MG/0.5MG NEB 3 ML VIAL NEB PRN ×2 (08:14→15:37)
[2022-12-15 08:18] LABS: Creatinine Clr Calc Pharmacy 50.9 ml/min; Est GFR (African American) 38.2 ml/min
[2022-12-15] MEDS: SERTRALINE HCL 50 MG TABLET PO SCH (10:00)
[2022-12-15] MEDS: DICLOFENAC SOD 1% GEL 100 GM TUBE EXT SCH ×4 (10:00→21:34)
[2022-12-15] MEDS: AZITHROMYCIN 250 MG TAB PO SCH (10:00)
[2022-12-15] MEDS: CHOLECALCIFEROL 1,000 UNITS 25 MCG TAB PO SCH (10:00)
[2022-12-15] MEDS: BACITRACIN OINT 15 GM TUBE EXT SCH ×2 (10:00→21:34)
[2022-12-15] MEDS: DOCUSATE SODIUM 100 MG CAP PO SCH ×2 (10:00→21:33)
[2022-12-15] MEDS: MAGNESIUM OXIDE 400 MG TAB PO SCH (10:00)
[2022-12-15] MEDS: ENOXAPARIN INJ 40 MG/0.4 ML SYR SQ SCH ×2 (10:00→21:35)
[2022-12-15] MEDS: KETOCONAZOLE 2% CR 15 GM TUBE EXT SCH ×2 (10:00→22:12)
[2022-12-15] MEDS: EMPAGLIFLOZIN 10 MG TAB PO SCH (10:00)
[2022-12-15] MEDS: SPIRONOLACTONE 25 MG TAB PO SCH (10:00)
[2022-12-15] MEDS: TOPIRAMATE 100 MG TAB PO SCH ×2 (10:00→21:36)
[2022-12-15] MEDS: buPROPion SR 100 MG TABCR PO SCH ×2 (10:00→21:33)
[2022-12-15] MEDS: MULTIVITAMIN TAB PO SCH (10:00)
[2022-12-15] MEDS: FOLIC ACID 1 MG TAB PO SCH (10:00)
[2022-12-15] MEDS: ISOSORBIDE MONO EXTENDED REL 30 MG TABCR PO SCH (10:00)
[2022-12-15] MEDS: METOPROLOL TARTRATE 25 MG TAB PO SCH ×2 (10:00→21:36)
[2022-12-15] MEDS: ASPIRIN 81 MG ECTAB PO SCH (10:00)
[2022-12-15 11:18] LABS: BUN Creatinine Ratio 21.1 (10-20)
[2022-12-15] MEDS: INSULIN, Rapid-Acting PUMP SCH ×2 (12:16→13:20)
[2022-12-15] MEDS: CALCIUM CITRATE 950 MG TAB PO SCH (16:19)
--- NOTE | 2022-12-15 18:55 | Hospitalist Progress Note ---
Date of Service December 15, 2022 Assessment & Plan (1) Fracture of distal end of right femur: Plan: Chronic nonunion of RIGHT DISTAL FEMUR fracture with resulting severe ambulatory dysfunction. Most recent x-rays (11/28/22) with some callus formation over fracture site. Cont nonoperative management. TTWB allowed by Dr Contreras to RLE as of 11/29/22. Pt prefers total non-weightbearing to the RLE, however. Pain regimen -- Cont tylenol 1gm TID. Cont oxy 10mg prn. Cont voltaren gel qid. (2) Adjustment disorder with depressed mood: Plan: stable, improving. depressed due to PROLONGED institutionalized status (here, [facility], multiple SNF, etc), not being able to see her daughter, poor sleep, etc remains on wellbutrin 100mg qam + wellbutrin 200mg qhs along with topamax 100mg qam and 200mg qhs sertraline 25mg daily initiated on 11/28/22 ; increased the dose to 50mg daily on 12/11/22. could increase to 75mg in early December, if needed. previous TSH, B12, 25-OH vit D levels -- all wnl (3) Acute on chronic combined systolic and diastolic CHF (congestive heart failure): Plan: Cont torsemide 20 mg daily. Give additional dose of 10mg today. Of note - weights had been rising slowly over the last 2-3 weeks. Check BMP in am. Continue spironolactone, metoprolol, isosorbide mononitrate, ASA, atorvastatin. Last echo - 09/2022 with EF 45-50%. (4) Type 2 diabetes mellitus: Plan: On insulin pump with excellent readings (<200 all times) and no hypoglycemia. Most recent a1c = 7.2% in 10/2022. Cont jardiance. (5) Weakness: Plan: Cont PT/OT as tolerated. Treat underlying depression. Would benefit from rehab at SNF or other facility but refusing - will only entertain idea of going home with caregivers. She lives with her daughter Carmen who is disabled. (6) Hypothyroidism (acquired): Plan: Continue Levothyroxine. TSH 1.1 on 10/22/22. (7) CKD stage 4 due to type 2 diabetes mellitus: Plan: Baseline creatinine 1.3-1.8. Her CrCl is low 50s c/w CKD stage 3. BMP in am. (8) GERD (gastroesophageal reflux disease): Plan: Continue protonix (9) Anxiety: Plan: cont zoloft 50mg daily (10) Morbid obesity with BMI of 60.0-69.9, adult: Plan: BMI 63-64 (11) Tracheostomy dependence: Plan: for RASHAAD/OHS cont routine trach care (12) Poor social situation: Plan: her prolonged hospital stay is due to disposition difficulties she was previously at [facility] - refuses to go back there she refuses to attend another SNF or go out of the [facility] for placement she wishes to go home with caregivers/HH by report has a large # of hours (90 by report) approved for in-home personal care; however, finding caregivers has been severely problematic social work has contacted between 20-30 home health agencies to try and secure help to no avail further, she needs a ramp built to be able to enter her home she also needs her entryway door widened to accommodate a large wheelchair social work continues to work on all of the above unfortunately no new leads on securing caregivers for her exhaustive search continues appreciate support given by histology specialist this past week patient wants to see histology specialist again - consult placed again today (13) DVT prophylaxis: Plan: lovenox 40mg BID due to extreme morbid obesity Admission and Anticipated Discharge Date Admission Date: October 01, 2022 Subjective No acute issue, pending placement, discussed with case management Review of Systems Review of Systems: gen - no pain except right knee cv - no chest pain, no orthopnea; edema is improved pulm - no cough or dyspnea GI - no pain, moving bowels Physical Exam Physical Exam: gen - morbidly obese, NAD anterior neck - metal trach clean heart - RRR, s1 s2, no murmur lungs - CTA b/l without wheeze/rales; airation wnl abd - soft NT ND BS+ ext - trace edema of feet b/l - no change, pulses 2+ b/l psych - a/o x 3; affect more full skin - tinea pedis b/l feet improved Constitutional: WD/WN, vitals as above + morbidly obese, cooperative and comfortable; no acute distress Eyes: PERRL, conjunctivae normal, anicteric sclerae + anicteric sclerae ENMT: external ear and nose normal, oropharynx normal Neck: trachea midline, no thyromegaly trachea midline and + tracheostomy present; + abnormal visual inspection (trach in place) Respiratory: normal respiratory effort, lungs clear to auscultation normal respiratory effort; no respiratory distress, no labored breathing and no cough Auscultation: + diminished lung sounds (Reduced breath sounds bilaterally at the bases) and + wheezes (a few exp wheezes bilat); no crackles and no rales Cardiovascular: RRR, no murmur, no edema Rate/Rhythm: regular rate and regular rhythm Heart Sounds: no murmur Extremities: normal capillary refill and + edema (Trace lower extremity edema bilaterally) Gastrointestinal (Abdomen): normal bowel sounds, soft, nontender, no hepatosplenomegaly Inspection/Auscultation: normal bowel sounds and + abdominal surgical scar Percussion/Palpation: + abdomen tender (diffuse) and abdomen soft Musculoskeletal: Extremities: extremities normal to inspection; no cyanosis and no clubbing Skin: no rashes, warm and dry + lesion (circular 1-2cm open lesion on abd and right leg) Neurologic: PERRL, EOMI, accommodation nl, no face palsy, no dysarthria moves all extremities and awake; no focal motor deficits Psychiatric: A+Ox3, euthymic affect Orientation: alert and oriented x 3 Apperance: appropriately dressed and appropriately groomed Eye Contact: good eye contact Motor Behavior: no abnormal motor movements Speech: normal rate/rhythm/volume of speech Affect: + depressed affect and + tearful affect Mood: + depressed mood and + anxious mood Thought Process: goal directed thought process Thought Content: reality based without delusions Suicidal Thoughts: denies suicidal thoughts Homicidal Thoughts: denies homicidal thoughts Hallucinations: no auditory hallucinations and no visual hallucinations Cognition: attention grossly intact and language grossly intact Estimated Intelligence: consistent with education level Insight: + fair insight Judgement: + limited judgement Lymphatic: no lymphedema Results & Data Results & Data ([facility]) Vital Signs (Past 12 Hours) Vital Signs Pulse Resp Pulse Ox O2 Del Method 12/15/22 15:38 72 18 94 Room Air 12/15/22 08:14 78 18 96 Room Air PG Care Time/CCT Total # of Minutes Spent Total Time Spent with Patient: Total time spent is greater than 50% in coordination of care (as documented) at patient's floor/unit and/or counseling patient: Coding Level of Care Code 59304 SUB INP/OBS CARE Diagnoses Fracture of distal end of right femur S72.401A Adjustment disorder with depressed mood F43.21 Acute on chronic combined systolic and diastolic CHF (congestive heart failure) I50.43 Type 2 diabetes mellitus E11.9 Weakness R53.1 Hypothyroidism (acquired) E03.9 CKD stage 4 due to type 2 diabetes mellitus E11.22; N18.4 GERD (gastroesophageal reflux disease) K21.9 Anxiety F41.9 Morbid obesity with BMI of 60.0-69.9, adult E66.01; Z68.44 Tracheostomy dependence Z93.0 Poor social situation Z65.9 DVT prophylaxis Z29.9
[2022-12-15] MEDS: MELATONIN 3 MG TAB PO SCH (21:33)
[2022-12-15] MEDS: ATORVASTATIN 40 MG TAB PO SCH (21:33)
[2022-12-16] MEDS: oxyCODONE HCL IR 5 MG TAB (IMMEDIATE RELEASE) PO PRN ×2 (01:51→16:34)
[2022-12-16] MEDS: ACETAMINOPHEN 500 MG TAB PO SCH ×3 (06:02→21:29)
[2022-12-16] MEDS: LEVOTHYROXINE SODIUM 25 MCG TABLET PO SCH (06:03)
[2022-12-16] MEDS: LEVOTHYROXINE SODIUM 200 MCG TABLET PO SCH (06:03)
[2022-12-16] MEDS: PANTOprazole 40 MG TAB PO SCH (06:03)
[2022-12-16] MEDS: TORSEMIDE 20 MG TAB PO SCH (06:04)
[2022-12-16] MEDS: ALBUT/IPRATROP 3MG/0.5MG NEB 3 ML VIAL NEB PRN ×2 (07:27→14:27)
[2022-12-16] MEDS: METOPROLOL TARTRATE 25 MG TAB PO SCH ×2 (08:30→21:28)
[2022-12-16] MEDS: ISOSORBIDE MONO EXTENDED REL 30 MG TABCR PO SCH (08:30)
[2022-12-16] MEDS: KETOCONAZOLE 2% CR 15 GM TUBE EXT SCH ×2 (08:30→21:28)
[2022-12-16] MEDS: MULTIVITAMIN TAB PO SCH (08:30)
[2022-12-16] MEDS: TOPIRAMATE 100 MG TAB PO SCH ×2 (08:30→21:29)
[2022-12-16] MEDS: buPROPion SR 100 MG TABCR PO SCH ×2 (08:30→21:25)
[2022-12-16] MEDS: MAGNESIUM OXIDE 400 MG TAB PO SCH (08:30)
[2022-12-16] MEDS: CHOLECALCIFEROL 1,000 UNITS 25 MCG TAB PO SCH (08:30)
[2022-12-16] MEDS: DICLOFENAC SOD 1% GEL 100 GM TUBE EXT SCH ×4 (08:30→21:26)
[2022-12-16] MEDS: ENOXAPARIN INJ 40 MG/0.4 ML SYR SQ SCH ×2 (08:30→21:26)
[2022-12-16] MEDS: ASPIRIN 81 MG ECTAB PO SCH (08:30)
[2022-12-16] MEDS: FOLIC ACID 1 MG TAB PO SCH (08:30)
[2022-12-16] MEDS: DOCUSATE SODIUM 100 MG CAP PO SCH ×2 (08:30→21:26)
[2022-12-16] MEDS: SPIRONOLACTONE 25 MG TAB PO SCH (08:30)
[2022-12-16] MEDS: SERTRALINE HCL 50 MG TABLET PO SCH (08:30)
[2022-12-16] MEDS: BACITRACIN OINT 15 GM TUBE EXT SCH ×2 (08:30→21:25)
[2022-12-16] MEDS: EMPAGLIFLOZIN 10 MG TAB PO SCH (08:30)
[2022-12-16] MEDS ORDERED: INSULIN ASPART 100 UNITS/ML VIAL SC PRN (09:55)
[2022-12-16] MEDS: INSULIN, Rapid-Acting PUMP SCH ×3 (13:52→21:27)
[2022-12-16] MEDS: CALCIUM CITRATE 950 MG TAB PO SCH (13:53)
--- NOTE | 2022-12-16 18:16 | Hospitalist Progress Note ---
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 Most recent x-rays (11/28/22) with some callus formation over fracture site. Cont nonoperative management. TTWB allowed by Dr Contreras to RLE as of 11/29/22. Pt prefers total non-weightbearing to the RLE, however. Pain regimen -- Cont tylenol 1gm TID. Cont oxy 10mg prn. Cont voltaren gel qid. (2) Adjustment disorder with depressed mood: Plan: stable, improving. depressed due to PROLONGED institutionalized status (here, [facility], multiple SNF, etc), not being able to see her daughter, poor sleep, etc remains on wellbutrin 100mg qam + wellbutrin 200mg qhs along with topamax 100mg qam and 200mg qhs sertraline 25mg daily initiated on 11/28/22 ; increased the dose to 50mg daily on 12/11/22. could increase to 75mg in early December, if needed. previous TSH, B12, 25-OH vit D levels -- all wnl (3) Acute on chronic combined systolic and diastolic CHF (congestive heart failure): Plan: Cont torsemide 20 mg daily. Give additional dose of 10mg today. Of note - weights had been rising slowly over the last 2-3 weeks. Check BMP in am. Continue spironolactone, metoprolol, isosorbide mononitrate, ASA, atorvastatin. Last echo - 09/2022 with EF 45-50%. (4) Type 2 diabetes mellitus: Plan: On insulin pump with excellent readings (<200 all times) and no hypoglycemia. Most recent a1c = 7.2% in 10/2022. Cont jardiance. (5) Weakness: Plan: Cont PT/OT as tolerated. Treat underlying depression. Would benefit from rehab at SNF or other facility but refusing - will only entertain idea of going home with caregivers. She lives with her daughter Carmen who is disabled. (6) Hypothyroidism (acquired): Plan: Continue Levothyroxine. TSH 1.1 on 10/22/22. (7) CKD stage 4 due to type 2 diabetes mellitus: Plan: Baseline creatinine 1.3-1.8. Her CrCl is low 50s c/w CKD stage 3. BMP in am. (8) GERD (gastroesophageal reflux disease): Plan: Continue protonix (9) Anxiety: Plan: cont zoloft 50mg daily (10) Morbid obesity with BMI of 60.0-69.9, adult: Plan: BMI 63-64 (11) Tracheostomy dependence: Plan: for [facility] cont routine trach care (12) Poor social situation: Plan: her prolonged hospital stay is due to disposition difficulties she was previously at [facility] - refuses to go back there she refuses to attend another SNF or go out of the [facility] for placement she wishes to go home with caregivers/HH by report has a large # of hours (90 by report) approved for in-home personal care; however, finding caregivers has been severely problematic social work has contacted between 20-30 home health agencies to try and secure help to no avail further, she needs a ramp built to be able to enter her home she also needs her entryway door widened to accommodate a large wheelchair social work continues to work on all of the above unfortunately no new leads on securing caregivers for her exhaustive search continues appreciate support given by [facility] this past week patient wants to see [facility] again - consult placed again today (13) DVT prophylaxis: Plan: lovenox 40mg BID due to extreme morbid obesity Admission and Anticipated Discharge Date Admission Date: October 01, 2022 Subjective No acute issue, pending placement, Physical Exam Physical Exam: gen - morbidly obese, NAD anterior neck - metal trach clean heart - RRR, s1 s2, no murmur lungs - CTA b/l without wheeze/rales; airation wnl abd - soft NT ND BS+ ext - trace edema of feet b/l - no change, pulses 2+ b/l psych - a/o x 3; affect more full skin - tinea pedis b/l feet improved Constitutional: WD/WN, vitals as above + morbidly obese, cooperative and comfortable; no acute distress Eyes: PERRL, conjunctivae normal, anicteric sclerae + anicteric sclerae ENMT: external ear and nose normal, oropharynx normal Neck: trachea midline, no thyromegaly trachea midline and + tracheostomy present; + abnormal visual inspection (trach in place) Respiratory: normal respiratory effort, lungs clear to auscultation normal respiratory effort; no respiratory distress, no labored breathing and no cough Auscultation: + diminished lung sounds (Reduced breath sounds bilaterally at the bases) and + wheezes (a few exp wheezes bilat); no crackles and no rales Cardiovascular: RRR, no murmur, no edema Rate/Rhythm: regular rate and regular rhythm Heart Sounds: no murmur Extremities: normal capillary refill and + edema (Trace lower extremity edema bilaterally) Gastrointestinal (Abdomen): normal bowel sounds, soft, nontender, no hepatosplenomegaly Inspection/Auscultation: normal bowel sounds and + abdominal surgical scar Percussion/Palpation: + abdomen tender (diffuse) and abdomen soft Musculoskeletal: Extremities: extremities normal to inspection; no cyanosis and no clubbing Skin: no rashes, warm and dry + lesion (circular 1-2cm open lesion on abd and right leg) Neurologic: PERRL, EOMI, accommodation nl, no face palsy, no dysarthria moves all extremities and awake; no focal motor deficits Psychiatric: A+Ox3, euthymic affect Orientation: alert and oriented x 3 Apperance: appropriately dressed and appropriately groomed Eye Contact: good eye contact Motor Behavior: no abnormal motor movements Speech: normal rate/rhythm/volume of speech Affect: + depressed affect and + tearful affect Mood: + depressed mood and + anxious mood Thought Process: goal directed thought process Thought Content: reality based without delusions Suicidal Thoughts: denies suicidal thoughts Homicidal Thoughts: denies homicidal thoughts Hallucinations: no auditory hallucinations and no visual hallucinations Cognition: attention grossly intact and language grossly intact Estimated Intelligence: consistent with education level Insight: + fair insight Judgement: + limited judgement Lymphatic: no lymphedema Results & Data Results & Data ([facility]) Vital Signs (Past 12 Hours) Vital Signs Temp Pulse Resp BP Pulse Ox O2 Del Method 12/16/22 15:51 36.6 C 76 18 135/73 92 Room Air 12/16/22 14:28 68 18 95 Room Air 12/16/22 10:46 Room Air 12/16/22 08:10 36.5 C 66 16 149/75 H 93 Room Air 12/16/22 07:28 60 16 94 Room Air PG Care Time/CCT Total # of Minutes Spent Total Time Spent with Patient: Total time spent is greater than 50% in coordination of care (as documented) at patient's floor/unit and/or counseling patient: Coding Level of Care Code 72163 SUB INP/OBS CARE Diagnoses Fracture of distal end of right femur S72.401A Adjustment disorder with depressed mood F43.21 Acute on chronic combined systolic and diastolic CHF (congestive heart failure) I50.43 Type 2 diabetes mellitus E11.9 Weakness R53.1 Hypothyroidism (acquired) E03.9 CKD stage 4 due to type 2 diabetes mellitus E11.22; N18.4 GERD (gastroesophageal reflux disease) K21.9 Anxiety F41.9 Morbid obesity with BMI of 60.0-69.9, adult E66.01; Z68.44 Tracheostomy dependence Z93.0 Poor social situation Z65.9 DVT prophylaxis Z29.9
[2022-12-16] MEDS: ATORVASTATIN 40 MG TAB PO SCH (21:24)
[2022-12-16] MEDS: MELATONIN 3 MG TAB PO SCH (21:28)
[2022-12-17] MEDS: PANTOprazole 40 MG TAB PO SCH (05:43)
[2022-12-17] MEDS: LEVOTHYROXINE SODIUM 200 MCG TABLET PO SCH (05:43)
[2022-12-17] MEDS: LEVOTHYROXINE SODIUM 25 MCG TABLET PO SCH (05:43)
[2022-12-17] MEDS: TORSEMIDE 20 MG TAB PO SCH (05:43)
[2022-12-17] MEDS: ACETAMINOPHEN 500 MG TAB PO SCH ×3 (05:44→22:45)
[2022-12-17] MEDS: ALBUT/IPRATROP 3MG/0.5MG NEB 3 ML VIAL NEB PRN ×2 (07:10→15:28)
[2022-12-17] MEDS: AZITHROMYCIN 250 MG TAB PO SCH (08:16)
[2022-12-17] MEDS: METOPROLOL TARTRATE 25 MG TAB PO SCH ×2 (08:16→20:41)
[2022-12-17] MEDS: DOCUSATE SODIUM 100 MG CAP PO SCH ×2 (08:16→20:39)
[2022-12-17] MEDS: SERTRALINE HCL 50 MG TABLET PO SCH (08:16)
[2022-12-17] MEDS: INSULIN, Rapid-Acting PUMP SCH ×4 (08:16→20:39)
[2022-12-17] MEDS: TOPIRAMATE 100 MG TAB PO SCH ×2 (08:17→20:42)
[2022-12-17] MEDS: EMPAGLIFLOZIN 10 MG TAB PO SCH (08:17)
[2022-12-17] MEDS: CHOLECALCIFEROL 1,000 UNITS 25 MCG TAB PO SCH (08:17)
[2022-12-17] MEDS: FOLIC ACID 1 MG TAB PO SCH (08:17)
[2022-12-17] MEDS: ISOSORBIDE MONO EXTENDED REL 30 MG TABCR PO SCH (08:17)
[2022-12-17] MEDS: buPROPion SR 100 MG TABCR PO SCH ×2 (08:17→20:38)
[2022-12-17] MEDS: ASPIRIN 81 MG ECTAB PO SCH (08:18)
[2022-12-17] MEDS: DICLOFENAC SOD 1% GEL 100 GM TUBE EXT SCH ×4 (08:18→20:39)
[2022-12-17] MEDS: MULTIVITAMIN TAB PO SCH (08:18)
[2022-12-17] MEDS: MAGNESIUM OXIDE 400 MG TAB PO SCH (08:18)
[2022-12-17] MEDS: SPIRONOLACTONE 25 MG TAB PO SCH (08:18)
[2022-12-17] MEDS: ENOXAPARIN INJ 40 MG/0.4 ML SYR SQ SCH ×2 (08:19→20:39)
[2022-12-17] MEDS: BACITRACIN OINT 15 GM TUBE EXT SCH ×2 (08:19→20:38)
[2022-12-17] MEDS: KETOCONAZOLE 2% CR 15 GM TUBE EXT SCH ×2 (08:19→20:40)
[2022-12-17] MEDS: oxyCODONE HCL IR 5 MG TAB (IMMEDIATE RELEASE) PO PRN ×2 (08:21→20:47)
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
[2022-12-17] MEDS: CALCIUM CITRATE 950 MG TAB PO SCH (13:18)
--- NOTE | 2022-12-17 18:34 | Hospitalist Progress Note ---
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 Most recent x-rays (11/28/22) with some callus formation over fracture site. Cont nonoperative management. TTWB allowed by Dr Contreras to RLE as of 11/29/22. Pt prefers total non-weightbearing to the RLE, however. Pain regimen -- Cont tylenol 1gm TID. Cont oxy 10mg prn. Cont voltaren gel qid. (2) Adjustment disorder with depressed mood: Plan: stable, improving. depressed due to PROLONGED institutionalized status (here, [facility], multiple SNF, etc), not being able to see her daughter, poor sleep, etc remains on wellbutrin 100mg qam + wellbutrin 200mg qhs along with topamax 100mg qam and 200mg qhs sertraline 25mg daily initiated on 11/28/22 ; increased the dose to 50mg daily on 12/11/22. could increase to 75mg in early December, if needed. previous TSH, B12, 25-OH vit D levels -- all wnl (3) Acute on chronic combined systolic and diastolic CHF (congestive heart failure): Plan: Cont torsemide 20 mg daily. Give additional dose of 10mg today. Of note - weights had been rising slowly over the last 2-3 weeks. Check BMP in am. Continue spironolactone, metoprolol, isosorbide mononitrate, ASA, atorvastatin. Last echo - 09/2022 with EF 45-50%. (4) Type 2 diabetes mellitus: Plan: On insulin pump with excellent readings (<200 all times) and no hypoglycemia. Most recent a1c = 7.2% in 10/2022. Cont jardiance. (5) Weakness: Plan: Cont PT/OT as tolerated. Treat underlying depression. Would benefit from rehab at SNF or other facility but refusing - will only entertain idea of going home with caregivers. She lives with her daughter Carmen who is disabled. (6) Hypothyroidism (acquired): Plan: Continue Levothyroxine. TSH 1.1 on 10/22/22. (7) CKD stage 4 due to type 2 diabetes mellitus: Plan: Baseline creatinine 1.3-1.8. Her CrCl is low 50s c/w CKD stage 3. BMP in am. (8) GERD (gastroesophageal reflux disease): Plan: Continue protonix (9) Anxiety: Plan: cont zoloft 50mg daily (10) Morbid obesity with BMI of 60.0-69.9, adult: Plan: BMI 63-64 (11) Tracheostomy dependence: Plan: for [facility] cont routine trach care (12) Poor social situation: Plan: her prolonged hospital stay is due to disposition difficulties she was previously at [facility] - refuses to go back there she refuses to attend another SNF or go out of the [facility] for placement she wishes to go home with caregivers/HH by report has a large # of hours (90 by report) approved for in-home personal care; however, finding caregivers has been severely problematic social work has contacted between 20-30 home health agencies to try and secure help to no avail further, she needs a ramp built to be able to enter her home she also needs her entryway door widened to accommodate a large wheelchair social work continues to work on all of the above unfortunately no new leads on securing caregivers for her exhaustive search continues appreciate support given by r programmer this past week patient wants to see r programmer again - consult placed again today (13) DVT prophylaxis: Plan: lovenox 40mg BID due to extreme morbid obesity Admission and Anticipated Discharge Date Admission Date: October 01, 2022 Subjective Pending placement, palliative care consulted appreciate Physical Exam Physical Exam: gen - morbidly obese, NAD anterior neck - metal trach clean heart - RRR, s1 s2, no murmur lungs - CTA b/l without wheeze/rales; airation wnl abd - soft NT ND BS+ ext - trace edema of feet b/l - no change, pulses 2+ b/l psych - a/o x 3; affect more full skin - tinea pedis b/l feet improved Constitutional: WD/WN, vitals as above + morbidly obese, cooperative and comfortable; no acute distress Eyes: PERRL, conjunctivae normal, anicteric sclerae + anicteric sclerae ENMT: external ear and nose normal, oropharynx normal Neck: trachea midline, no thyromegaly trachea midline and + tracheostomy present; + abnormal visual inspection (trach in place) Respiratory: normal respiratory effort, lungs clear to auscultation normal respiratory effort; no respiratory distress, no labored breathing and no cough Auscultation: + diminished lung sounds (Reduced breath sounds bilaterally at the bases) and + wheezes (a few exp wheezes bilat); no crackles and no rales Cardiovascular: RRR, no murmur, no edema Rate/Rhythm: regular rate and regular rhythm Heart Sounds: no murmur Extremities: normal capillary refill and + edema (Trace lower extremity edema bilaterally) Gastrointestinal (Abdomen): normal bowel sounds, soft, nontender, no hepatosplenomegaly Inspection/Auscultation: normal bowel sounds and + abdominal surgical scar Percussion/Palpation: + abdomen tender (diffuse) and abdomen soft Musculoskeletal: Extremities: extremities normal to inspection; no cyanosis and no clubbing Skin: no rashes, warm and dry + lesion (circular 1-2cm open lesion on abd and right leg) Neurologic: PERRL, EOMI, accommodation nl, no face palsy, no dysarthria moves all extremities and awake; no focal motor deficits Psychiatric: A+Ox3, euthymic affect Orientation: alert and oriented x 3 Apperance: appropriately dressed and appropriately groomed Eye Contact: good eye contact Motor Behavior: no abnormal motor movements Speech: normal rate/rhythm/volume of speech Affect: + depressed affect and + tearful affect Mood: + depressed mood and + anxious mood Thought Process: goal directed thought process Thought Content: reality based without delusions Suicidal Thoughts: denies suicidal thoughts Homicidal Thoughts: denies homicidal thoughts Hallucinations: no auditory hallucinations and no visual hallucinations Cognition: attention grossly intact and language grossly intact Estimated Intelligence: consistent with education level Insight: + fair insight Judgement: + limited judgement Lymphatic: no lymphedema Results & Data Results & [facility] ([facility]) Vital Signs (Past 12 Hours) Vital Signs Temp Pulse Resp BP Pulse Ox O2 Del Method 12/17/22 15:41 36.7 C 67 18 123/65 94 Room Air 12/17/22 15:29 70 18 95 Room Air 12/17/22 07:30 Room Air 12/17/22 07:53 36.7 C 67 18 150/73 H 94 Room Air 12/17/22 07:10 63 18 93 Room Air PG Care Time/CCT Total # of Minutes Spent Total Time Spent with Patient: Total time spent is greater than 50% in coordination of care (as documented) at patient's floor/unit and/or counseling patient: Coding Level of Care Code 23846 SUB INP/OBS CARE Diagnoses Fracture of distal end of right femur S72.401A Adjustment disorder with depressed mood F43.21 Acute on chronic combined systolic and diastolic CHF (congestive heart failure) I50.43 Type 2 diabetes mellitus E11.9 Weakness R53.1 Hypothyroidism (acquired) E03.9 CKD stage 4 due to type 2 diabetes mellitus E11.22; N18.4 GERD (gastroesophageal reflux disease) K21.9 Anxiety F41.9 Morbid obesity with BMI of 60.0-69.9, adult E66.01; Z68.44 Tracheostomy dependence Z93.0 Poor social situation Z65.9 DVT prophylaxis Z29.9
[2022-12-17] MEDS: MELATONIN 3 MG TAB PO SCH (20:37)
[2022-12-17] MEDS: ATORVASTATIN 40 MG TAB PO SCH (20:38)
[2022-12-18] MEDS: ACETAMINOPHEN 500 MG TAB PO SCH ×3 (06:33→21:56)
[2022-12-18] MEDS: LEVOTHYROXINE SODIUM 200 MCG TABLET PO SCH (06:33)
[2022-12-18] MEDS: LEVOTHYROXINE SODIUM 25 MCG TABLET PO SCH (06:33)
[2022-12-18] MEDS: PANTOprazole 40 MG TAB PO SCH (06:34)
[2022-12-18] MEDS: TORSEMIDE 10 MG TAB PO PRN (06:35)
[2022-12-18] MEDS: TORSEMIDE 20 MG TAB PO SCH (06:41)
[2022-12-18] MEDS: ALBUT/IPRATROP 3MG/0.5MG NEB 3 ML VIAL NEB PRN ×2 (08:14→15:03)
[2022-12-18] MEDS: INSULIN, Rapid-Acting PUMP SCH ×4 (08:50→21:22)
[2022-12-18] MEDS: buPROPion SR 100 MG TABCR PO SCH ×2 (08:53→21:08)
[2022-12-18] MEDS: METOPROLOL TARTRATE 25 MG TAB PO SCH ×2 (08:53→21:06)
[2022-12-18] MEDS: SPIRONOLACTONE 25 MG TAB PO SCH (08:53)
[2022-12-18] MEDS: ENOXAPARIN INJ 40 MG/0.4 ML SYR SQ SCH ×2 (08:53→21:07)
[2022-12-18] MEDS: DOCUSATE SODIUM 100 MG CAP PO SCH ×2 (08:53→21:07)
[2022-12-18] MEDS: EMPAGLIFLOZIN 10 MG TAB PO SCH (08:53)
[2022-12-18] MEDS: CHOLECALCIFEROL 1,000 UNITS 25 MCG TAB PO SCH (08:53)
[2022-12-18] MEDS: ISOSORBIDE MONO EXTENDED REL 30 MG TABCR PO SCH (08:53)
[2022-12-18] MEDS: TOPIRAMATE 100 MG TAB PO SCH ×2 (08:54→21:05)
[2022-12-18] MEDS: MULTIVITAMIN TAB PO SCH (08:54)
[2022-12-18] MEDS: DICLOFENAC SOD 1% GEL 100 GM TUBE EXT SCH ×4 (08:54→21:09)
[2022-12-18] MEDS: MAGNESIUM OXIDE 400 MG TAB PO SCH (08:54)
[2022-12-18] MEDS: FOLIC ACID 1 MG TAB PO SCH (08:54)
[2022-12-18] MEDS: ASPIRIN 81 MG ECTAB PO SCH (08:54)
[2022-12-18] MEDS: SERTRALINE HCL 50 MG TABLET PO SCH (08:54)
[2022-12-18] MEDS: KETOCONAZOLE 2% CR 15 GM TUBE EXT SCH ×2 (08:55→21:09)
[2022-12-18] MEDS: BACITRACIN OINT 15 GM TUBE EXT SCH ×2 (08:55→21:08)
[2022-12-18] MEDS: oxyCODONE HCL IR 5 MG TAB (IMMEDIATE RELEASE) PO PRN ×2 (09:01→21:55)
[2022-12-18] MEDS: CALCIUM CITRATE 950 MG TAB PO SCH (12:43)
--- NOTE | 2022-12-18 20:08 | Hospitalist Progress Note ---
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 Cont nonoperative management. TTWB allowed by Dr Contreras to RLE as of 11/29/22. Pt prefers total non-weightbearing to the RLE, however. Pain regimen -- Cont tylenol 1gm TID. Cont oxy 10mg prn. Cont voltaren gel qid. (2) Adjustment disorder with depressed mood: Plan: stable, improving. depressed due to PROLONGED institutionalized status (here, [facility], multiple SNF, etc), not being able to see her daughter, poor sleep, etc remains on wellbutrin 100mg qam + wellbutrin 200mg qhs along with topamax 100mg qam and 200mg qhs sertraline 25mg daily initiated on 11/28/22 ; increased the dose to 50mg daily on 12/11/22. could increase to 75mg in early December, if needed. previous TSH, B12, 25-OH vit D levels -- all wnl (3) Acute on chronic combined systolic and diastolic CHF (congestive heart failure): Plan: Cont torsemide 20 mg daily. Of note - weights had been rising slowly over the last 2-3 weeks. Continue spironolactone, metoprolol, isosorbide mononitrate, ASA, atorvastatin. Last echo - 09/2022 with EF 45-50%. (4) Type 2 diabetes mellitus: Plan: On insulin pump with excellent readings (<200 all times) and no hypoglycemia. Most recent a1c = 7.2% in 10/2022. Cont jardiance. (5) Weakness: Plan: Cont PT/OT as tolerated. Treat underlying depression. Would benefit from rehab at SNF or other facility but refusing - will only entertain idea of going home with caregivers. She lives with her daughter Carmen who is disabled. (6) Hypothyroidism (acquired): Plan: Continue Levothyroxine. TSH 1.1 on 10/22/22. (7) GERD (gastroesophageal reflux disease): Plan: Continue protonix (8) Anxiety: Plan: cont zoloft 50mg daily (9) Morbid obesity with BMI of 60.0-69.9, adult: Plan: BMI 63-64 (10) Poor social situation: Plan: her prolonged hospital stay is due to disposition difficulties she was previously at [facility] SNF - refuses to go back there she refuses to attend another SNF or go out of the [place] area for placement she wishes to go home with caregivers/HH by report has a large # of hours (90 by report) approved for in-home personal care; however, finding caregivers has been severely problematic social work has contacted between 20-30 home health agencies to try and secure help to no avail further, she needs a ramp built to be able to enter her home she also needs her entryway door widened to accommodate a large wheelchair social work continues to work on all of the above unfortunately no new leads on securing caregivers for her exhaustive search continues (11) DVT prophylaxis: Plan: lovenox 40mg BID due to extreme morbid obesity Admission and Anticipated Discharge Date Admission Date: October 01, 2022 Subjective No complaint today Physical Exam Physical Exam: gen - morbidly obese, NAD anterior neck - metal trach clean heart - RRR, s1 s2, no murmur lungs - CTA b/l without wheeze/rales; airation wnl abd - soft NT ND BS+ ext - trace edema of feet b/l - no change, pulses 2+ b/l psych - a/o x 3; affect more full skin - tinea pedis b/l feet improved Constitutional: WD/WN, vitals as above + morbidly obese, cooperative and comfortable; no acute distress Eyes: PERRL, conjunctivae normal, anicteric sclerae + anicteric sclerae ENMT: external ear and nose normal, oropharynx normal Neck: trachea midline, no thyromegaly trachea midline and + tracheostomy present; + abnormal visual inspection (trach in place) Respiratory: normal respiratory effort, lungs clear to auscultation normal respiratory effort; no respiratory distress, no labored breathing and no cough Auscultation: + diminished lung sounds (Reduced breath sounds bilaterally at the bases) and + wheezes (a few exp wheezes bilat); no crackles and no rales Cardiovascular: RRR, no murmur, no edema Rate/Rhythm: regular rate and regular rhythm Heart Sounds: no murmur Extremities: normal capillary refill and + edema (Trace lower extremity edema bilaterally) Gastrointestinal (Abdomen): normal bowel sounds, soft, nontender, no hepatosplenomegaly Inspection/Auscultation: normal bowel sounds and + abdominal surgical scar Percussion/Palpation: + abdomen tender (diffuse) and abdomen soft Musculoskeletal: Extremities: extremities normal to inspection; no cyanosis and no clubbing Skin: no rashes, warm and dry + lesion (circular 1-2cm open lesion on abd and right leg) Neurologic: PERRL, EOMI, accommodation nl, no face palsy, no dysarthria moves all extremities and awake; no focal motor deficits Psychiatric: A+Ox3, euthymic affect Orientation: alert and oriented x 3 Apperance: appropriately dressed and appropriately groomed Eye Contact: good eye contact Motor Behavior: no abnormal motor movements Speech: normal rate/rhythm/volume of speech Affect: + depressed affect and + tearful affect Mood: + depressed mood and + anxious mood Thought Process: goal directed thought process Thought Content: reality based without delusions Suicidal Thoughts: denies suicidal thoughts Homicidal Thoughts: denies homicidal thoughts Hallucinations: no auditory hallucinations and no visual hallucinations Cognition: attention grossly intact and language grossly intact Estimated Intelligence: consistent with education level Insight: + fair insight Judgement: + limited judgement Lymphatic: no lymphedema Results & Data Results & Data ([facility]) Vital Signs (Past 12 Hours) Vital Signs Temp Pulse Resp BP Pulse Ox O2 Del Method 12/18/22 15:38 36.6 C 72 18 148/64 H 93 Room Air 12/18/22 15:04 72 16 97 Room Air 12/18/22 11:22 Room Air 12/18/22 08:15 64 16 95 Room Air PG Care Time/CCT Total # of Minutes Spent Total Time Spent with Patient: Total time spent is greater than 50% in coordination of care (as documented) at patient's floor/unit and/or counseling patient: Coding Level of Care Code 69840 SUB INP/OBS CARE 12/15MIN Diagnoses Fracture of distal end of right femur S72.401A Adjustment disorder with depressed mood F43.21 Acute on chronic combined systolic and diastolic CHF (congestive heart failure) I50.43 Type 2 diabetes mellitus E11.9 Weakness R53.1 Hypothyroidism (acquired) E03.9 GERD (gastroesophageal reflux disease) K21.9 Anxiety F41.9 Morbid obesity with BMI of 60.0-69.9, adult E66.01; Z68.44 Poor social situation Z65.9 DVT prophylaxis Z29.9
[2022-12-18] MEDS: ATORVASTATIN 40 MG TAB PO SCH (21:05)
[2022-12-18] MEDS: MELATONIN 3 MG TAB PO SCH (21:56)
[2022-12-19] MEDS: LEVOTHYROXINE SODIUM 25 MCG TABLET PO SCH (06:09)
[2022-12-19] MEDS: LEVOTHYROXINE SODIUM 200 MCG TABLET PO SCH (06:09)
[2022-12-19] MEDS: TORSEMIDE 20 MG TAB PO SCH (06:09)
[2022-12-19] MEDS: PANTOprazole 40 MG TAB PO SCH (06:09)
[2022-12-19] MEDS: ACETAMINOPHEN 500 MG TAB PO SCH ×2 (07:03→15:17)
[2022-12-19] MEDS: ALBUT/IPRATROP 3MG/0.5MG NEB 3 ML VIAL NEB PRN (07:39)
[2022-12-19] MEDS: INSULIN, Rapid-Acting PUMP SCH ×4 (09:56→21:17)
[2022-12-19] MEDS: KETOCONAZOLE 2% CR 15 GM TUBE EXT SCH ×2 (09:57→20:40)
[2022-12-19] MEDS: oxyCODONE HCL IR 5 MG TAB (IMMEDIATE RELEASE) PO PRN ×2 (09:59→22:42)
[2022-12-19] MEDS: ASPIRIN 81 MG ECTAB PO SCH (10:00)
[2022-12-19] MEDS: SERTRALINE HCL 50 MG TABLET PO SCH (10:00)
[2022-12-19] MEDS: ISOSORBIDE MONO EXTENDED REL 30 MG TABCR PO SCH (10:00)
[2022-12-19] MEDS: MAGNESIUM OXIDE 400 MG TAB PO SCH (10:00)
[2022-12-19] MEDS: MULTIVITAMIN TAB PO SCH (10:01)
[2022-12-19] MEDS: buPROPion SR 100 MG TABCR PO SCH ×2 (10:01→20:37)
[2022-12-19] MEDS: SPIRONOLACTONE 25 MG TAB PO SCH (10:01)
[2022-12-19] MEDS: TOPIRAMATE 100 MG TAB PO SCH ×2 (10:01→20:38)
[2022-12-19] MEDS: CHOLECALCIFEROL 1,000 UNITS 25 MCG TAB PO SCH (10:01)
[2022-12-19] MEDS: FOLIC ACID 1 MG TAB PO SCH (10:01)
[2022-12-19] MEDS: DOCUSATE SODIUM 100 MG CAP PO SCH ×2 (10:02→20:37)
[2022-12-19] MEDS: METOPROLOL TARTRATE 25 MG TAB PO SCH ×2 (10:02→20:38)
[2022-12-19] MEDS: ENOXAPARIN INJ 40 MG/0.4 ML SYR SQ SCH ×2 (10:02→20:39)
[2022-12-19] MEDS: EMPAGLIFLOZIN 10 MG TAB PO SCH (10:02)
[2022-12-19] MEDS: BACITRACIN OINT 15 GM TUBE EXT SCH ×2 (10:03→20:40)
[2022-12-19] MEDS: DICLOFENAC SOD 1% GEL 100 GM TUBE EXT SCH ×4 (10:03→20:40)
[2022-12-19] MEDS: CALCIUM CITRATE 950 MG TAB PO SCH (13:38)
--- NOTE | 2022-12-19 17:49 | Hospitalist Progress Note ---
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 Cont nonoperative management. TTWB allowed by Dr Contreras to RLE as of 11/29/22. Pt prefers total non-weightbearing to the RLE, however. Pain regimen -- Cont tylenol 1gm TID. Cont oxy 10mg prn. Cont voltaren gel qid. (2) Adjustment disorder with depressed mood: Plan: stable, improving. depressed due to PROLONGED institutionalized status (here, [facility], multiple SNF, etc), not being able to see her daughter, poor sleep, etc remains on wellbutrin 100mg qam + wellbutrin 200mg qhs along with topamax 100mg qam and 200mg qhs sertraline 25mg daily initiated on 11/28/22 ; increased the dose to 50mg daily on 12/11/22. could increase to 75mg in early December, if needed. previous TSH, B12, 25-OH vit D levels -- all wnl (3) Acute on chronic combined systolic and diastolic CHF (congestive heart failure): Plan: Cont torsemide 20 mg daily. Of note - weights had been rising slowly over the last 2-3 weeks. Continue spironolactone, metoprolol, isosorbide mononitrate, ASA, atorvastatin. Last echo - 09/2022 with EF 45-50%. (4) Type 2 diabetes mellitus: Plan: On insulin pump with excellent readings (<200 all times) and no hypoglycemia. Most recent a1c = 7.2% in 10/2022. Cont jardiance. (5) Weakness: Plan: Cont PT/OT as tolerated. Treat underlying depression. Would benefit from rehab at SNF or other facility but refusing - will only entertain idea of going home with caregivers. She lives with her daughter Carmen who is disabled. (6) Hypothyroidism (acquired): Plan: Continue Levothyroxine. TSH 1.1 on 10/22/22. (7) GERD (gastroesophageal reflux disease): Plan: Continue protonix (8) Anxiety: Plan: cont zoloft 50mg daily (9) Morbid obesity with BMI of 60.0-69.9, adult: Plan: BMI 63-64 (10) Poor social situation: Plan: her prolonged hospital stay is due to disposition difficulties she was previously at [facility] SNF - refuses to go back there she refuses to attend another SNF or go out of the [place] area for placement she wishes to go home with caregivers/HH by report has a large # of hours (90 by report) approved for in-home personal care; however, finding caregivers has been severely problematic social work has contacted between 20-30 home health agencies to try and secure help to no avail further, she needs a ramp built to be able to enter her home she also needs her entryway door widened to accommodate a large wheelchair social work continues to work on all of the above unfortunately no new leads on securing caregivers for her exhaustive search continues (11) DVT prophylaxis: Plan: lovenox 40mg BID due to extreme morbid obesity Admission and Anticipated Discharge Date Admission Date: October 01, 2022 Subjective No complaint today stating that Tylenol is not working Tylenol was discontinued Physical Exam Physical Exam: gen - morbidly obese, NAD anterior neck - metal trach clean heart - RRR, s1 s2, no murmur lungs - CTA b/l without wheeze/rales; airation wnl abd - soft NT ND BS+ ext - trace edema of feet b/l - no change, pulses 2+ b/l psych - a/o x 3; affect more full skin - tinea pedis b/l feet improved Constitutional: WD/WN, vitals as above + morbidly obese, cooperative and comfortable; no acute distress Eyes: PERRL, conjunctivae normal, anicteric sclerae + anicteric sclerae ENMT: external ear and nose normal, oropharynx normal Neck: trachea midline, no thyromegaly trachea midline and + tracheostomy present; + abnormal visual inspection (trach in place) Respiratory: normal respiratory effort, lungs clear to auscultation normal respiratory effort; no respiratory distress, no labored breathing and no cough Auscultation: + diminished lung sounds (Reduced breath sounds bilaterally at the bases) and + wheezes (a few exp wheezes bilat); no crackles and no rales Cardiovascular: RRR, no murmur, no edema Rate/Rhythm: regular rate and regular rhythm Heart Sounds: no murmur Extremities: normal capillary refill and + edema (Trace lower extremity edema bilaterally) Gastrointestinal (Abdomen): normal bowel sounds, soft, nontender, no hepatosplenomegaly Inspection/Auscultation: normal bowel sounds and + abdominal surgical scar Percussion/Palpation: + abdomen tender (diffuse) and abdomen soft Musculoskeletal: Extremities: extremities normal to inspection; no cyanosis and no clubbing Skin: no rashes, warm and dry + lesion (circular 1-2cm open lesion on abd and right leg) Neurologic: PERRL, EOMI, accommodation nl, no face palsy, no dysarthria moves all extremities and awake; no focal motor deficits Psychiatric: A+Ox3, euthymic affect Orientation: alert and oriented x 3 Apperance: appropriately dressed and appropriately groomed Eye Contact: good eye contact Motor Behavior: no abnormal motor movements Speech: normal rate/rhythm/volume of speech Affect: + depressed affect and + tearful affect Mood: + depressed mood and + anxious mood Thought Process: goal directed thought process Thought Content: reality based without delusions Suicidal Thoughts: denies suicidal thoughts Homicidal Thoughts: denies homicidal thoughts Hallucinations: no auditory hallucinations and no visual hallucinations Cognition: attention grossly intact and language grossly intact Estimated Intelligence: consistent with education level Insight: + fair insight Judgement: + limited judgement Lymphatic: no lymphedema Results & Data Results & Data ([facility]) Vital Signs (Past 12 Hours) Vital Signs Temp Pulse Resp BP Pulse Ox O2 Del Method 12/19/22 14:37 36.7 C 75 18 148/74 H 91 Room Air 12/19/22 10:00 Room Air 12/19/22 07:51 36.6 C 69 18 126/72 93 Room Air 12/19/22 07:39 76 16 95 Room Air PG Care Time/CCT Total # of Minutes Spent Total Time Spent with Patient: Total time spent is greater than 50% in coordination of care (as documented) at patient's floor/unit and/or counseling patient: Coding Level of Care Code 30655 SUB INP/OBS CARE 12/15MIN Diagnoses Fracture of distal end of right femur S72.401A Adjustment disorder with depressed mood F43.21 Acute on chronic combined systolic and diastolic CHF (congestive heart failure) I50.43 Type 2 diabetes mellitus E11.9 Weakness R53.1 Hypothyroidism (acquired) E03.9 GERD (gastroesophageal reflux disease) K21.9 Anxiety F41.9 Morbid obesity with BMI of 60.0-69.9, adult E66.01; Z68.44 Poor social situation Z65.9 DVT prophylaxis Z29.9
[2022-12-19] MEDS: ATORVASTATIN 40 MG TAB PO SCH (20:37)
[2022-12-19] MEDS: MELATONIN 3 MG TAB PO SCH (20:38)
[2022-12-20] MEDS: LEVOTHYROXINE SODIUM 200 MCG TABLET PO SCH (06:05)
[2022-12-20] MEDS: LEVOTHYROXINE SODIUM 25 MCG TABLET PO SCH (06:05)
[2022-12-20] MEDS: TORSEMIDE 20 MG TAB PO SCH (06:05)
[2022-12-20] MEDS: PANTOprazole 40 MG TAB PO SCH (06:05)
[2022-12-20] MEDS: ALBUT/IPRATROP 3MG/0.5MG NEB 3 ML VIAL NEB PRN ×2 (07:57→15:04)
[2022-12-20] MEDS: CHOLECALCIFEROL 1,000 UNITS 25 MCG TAB PO SCH (09:19)
[2022-12-20] MEDS: SERTRALINE HCL 50 MG TABLET PO SCH (09:19)
[2022-12-20] MEDS: ISOSORBIDE MONO EXTENDED REL 30 MG TABCR PO SCH (09:20)
[2022-12-20] MEDS: TOPIRAMATE 100 MG TAB PO SCH ×2 (09:20→21:02)
[2022-12-20] MEDS: FOLIC ACID 1 MG TAB PO SCH (09:21)
[2022-12-20] MEDS: ASPIRIN 81 MG ECTAB PO SCH (09:21)
[2022-12-20] MEDS: buPROPion SR 100 MG TABCR PO SCH ×2 (09:21→21:01)
[2022-12-20] MEDS: EMPAGLIFLOZIN 10 MG TAB PO SCH (09:22)
[2022-12-20] MEDS: MULTIVITAMIN TAB PO SCH (09:22)
[2022-12-20] MEDS: AZITHROMYCIN 250 MG TAB PO SCH (09:22)
[2022-12-20] MEDS: MAGNESIUM OXIDE 400 MG TAB PO SCH (09:23)
[2022-12-20] MEDS: SPIRONOLACTONE 25 MG TAB PO SCH (09:23)
[2022-12-20] MEDS: DOCUSATE SODIUM 100 MG CAP PO SCH ×2 (09:24→21:04)
[2022-12-20] MEDS: ENOXAPARIN INJ 40 MG/0.4 ML SYR SQ SCH ×2 (09:25→21:02)
[2022-12-20] MEDS: BACITRACIN OINT 15 GM TUBE EXT SCH ×2 (09:27→21:01)
[2022-12-20] MEDS: DICLOFENAC SOD 1% GEL 100 GM TUBE EXT SCH ×4 (09:28→21:01)
[2022-12-20] MEDS: KETOCONAZOLE 2% CR 15 GM TUBE EXT SCH ×2 (09:29→18:13)
[2022-12-20] MEDS: INSULIN, Rapid-Acting PUMP SCH ×4 (09:37→21:19)
[2022-12-20] MEDS: METOPROLOL TARTRATE 25 MG TAB PO SCH ×2 (10:21→21:11)
[2022-12-20] MEDS: CALCIUM CITRATE 950 MG TAB PO SCH (13:11)
[2022-12-20] MEDS: MELATONIN 3 MG TAB PO SCH (21:02)
[2022-12-20] MEDS: ATORVASTATIN 40 MG TAB PO SCH (21:04)
--- NOTE | 2022-12-20 23:03 | Hospitalist Progress Note ---
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 Cont nonoperative management. TTWB allowed by Dr Contreras to RLE as of 11/29/22. Pt prefers total non-weightbearing to the RLE, however. Pain regimen -- Cont tylenol 1gm TID. Cont oxy 10mg prn. Cont voltaren gel qid. (2) Adjustment disorder with depressed mood: Plan: stable, improving. depressed due to PROLONGED institutionalized status (here, [facility], multiple SNF, etc), not being able to see her daughter, poor sleep, etc remains on wellbutrin 100mg qam + wellbutrin 200mg qhs along with topamax 100mg qam and 200mg qhs sertraline 25mg daily initiated on 11/28/22 ; increased the dose to 50mg daily on 12/11/22. could increase to 75mg in early December, if needed. previous TSH, B12, 25-OH vit D levels -- all wnl (3) Acute on chronic combined systolic and diastolic CHF (congestive heart failure): Plan: Cont torsemide 20 mg daily. Of note - weights had been rising slowly over the last 2-3 weeks. Continue spironolactone, metoprolol, isosorbide mononitrate, ASA, atorvastatin. Last echo - 09/2022 with EF 45-50%. (4) Type 2 diabetes mellitus: Plan: On insulin pump with excellent readings (<200 all times) and no hypoglycemia. Most recent a1c = 7.2% in 10/2022. Cont jardiance. (5) Weakness: Plan: Cont PT/OT as tolerated. Treat underlying depression. Would benefit from rehab at SNF or other facility but refusing - will only entertain idea of going home with caregivers. She lives with her daughter Carmen who is disabled. (6) Hypothyroidism (acquired): Plan: Continue Levothyroxine. TSH 1.1 on 10/22/22. (7) GERD (gastroesophageal reflux disease): Plan: Continue protonix (8) Anxiety: Plan: cont zoloft 50mg daily (9) Morbid obesity with BMI of 60.0-69.9, adult: Plan: BMI 63-64 (10) Poor social situation: Plan: her prolonged hospital stay is due to disposition difficulties she was previously at [facility] - refuses to go back there she refuses to attend another SNF or go out of the [place] area for placement she wishes to go home with caregivers/HH by report has a large # of hours (90 by report) approved for in-home personal care; however, finding caregivers has been severely problematic social work has contacted between 20-30 home health agencies to try and secure help to no avail further, she needs a ramp built to be able to enter her home she also needs her entryway door widened to accommodate a large wheelchair social work continues to work on all of the above unfortunately no new leads on securing caregivers for her exhaustive search continues (11) DVT prophylaxis: Plan: lovenox 40mg BID due to extreme morbid obesity Admission and Anticipated Discharge Date Admission Date: October 01, 2022 Subjective No complaint today discussed with the behavioral health case manager and today so far no discharge planning Physical Exam Physical Exam: gen - morbidly obese, NAD anterior neck - metal trach clean heart - RRR, s1 s2, no murmur lungs - CTA b/l without wheeze/rales; airation wnl abd - soft NT ND BS+ ext - trace edema of feet b/l - no change, pulses 2+ b/l psych - a/o x 3; affect more full skin - tinea pedis b/l feet improved Constitutional: WD/WN, vitals as above + morbidly obese, cooperative and comfortable; no acute distress Eyes: PERRL, conjunctivae normal, anicteric sclerae + anicteric sclerae ENMT: external ear and nose normal, oropharynx normal Neck: trachea midline, no thyromegaly trachea midline and + tracheostomy present; + abnormal visual inspection (trach in place) Respiratory: normal respiratory effort, lungs clear to auscultation normal respiratory effort; no respiratory distress, no labored breathing and no cough Auscultation: + diminished lung sounds (Reduced breath sounds bilaterally at the bases) and + wheezes (a few exp wheezes bilat); no crackles and no rales Cardiovascular: RRR, no murmur, no edema Rate/Rhythm: regular rate and regular rhythm Heart Sounds: no murmur Extremities: normal capillary refill and + edema (Trace lower extremity edema bilaterally) Gastrointestinal (Abdomen): normal bowel sounds, soft, nontender, no hepatosplenomegaly Inspection/Auscultation: normal bowel sounds and + abdominal surgical scar Percussion/Palpation: + abdomen tender (diffuse) and abdomen soft Musculoskeletal: Extremities: extremities normal to inspection; no cyanosis and no clubbing Skin: no rashes, warm and dry + lesion (circular 1-2cm open lesion on abd and right leg) Neurologic: PERRL, EOMI, accommodation nl, no face palsy, no dysarthria moves all extremities and awake; no focal motor deficits Psychiatric: A+Ox3, euthymic affect Orientation: alert and oriented x 3 Apperance: appropriately dressed and appropriately groomed Eye Contact: good eye contact Motor Behavior: no abnormal motor movements Speech: normal rate/rhythm/volume of speech Affect: + depressed affect and + tearful affect Mood: + depressed mood and + anxious mood Thought Process: goal directed thought process Thought Content: reality based without delusions Suicidal Thoughts: denies suicidal thoughts Homicidal Thoughts: denies homicidal thoughts Hallucinations: no auditory hallucinations and no visual hallucinations Cognition: attention grossly intact and language grossly intact Estimated Intelligence: consistent with education level Insight: + fair insight Judgment: + limited judgement Lymphatic: no lymphedema Results & Data Results & [facility] ([facility]) Vital Signs (Past 12 Hours) Vital Signs Temp Pulse Resp BP Pulse Ox O2 Del Method 12/20/22 19:58 Room Air, Trach Collar 12/20/22 21:12 36.8 C 86 20 130/67 93 Room Air 12/20/22 16:40 36.8 C 75 20 143/67 H 94 Room Air 12/20/22 15:04 72 18 92 Room Air PG Care Time/CCT Total # of Minutes Spent Total Time Spent with Patient: Total time spent is greater than 50% in coordination of care (as documented) at patient's floor/unit and/or counseling patient: Coding Level of Care Code 79540 SUB INP/OBS CARE 12/15MIN Diagnoses Fracture of distal end of right femur S72.401A Adjustment disorder with depressed mood F43.21 Acute on chronic combined systolic and diastolic CHF (congestive heart failure) I50.43 Type 2 diabetes mellitus E11.9 Weakness R53.1 Hypothyroidism (acquired) E03.9 GERD (gastroesophageal reflux disease) K21.9 Anxiety F41.9 Morbid obesity with BMI of 60.0-69.9, adult E66.01; Z68.44 Poor social situation Z65.9 DVT prophylaxis Z29.9
[2022-12-21] MEDS: LEVOTHYROXINE SODIUM 200 MCG TABLET PO SCH (06:33)
[2022-12-21] MEDS: LEVOTHYROXINE SODIUM 25 MCG TABLET PO SCH (06:33)
[2022-12-21] MEDS: TORSEMIDE 20 MG TAB PO SCH (06:34)
[2022-12-21] MEDS: PANTOprazole 40 MG TAB PO SCH (06:34)
[2022-12-21] MEDS: ALBUT/IPRATROP 3MG/0.5MG NEB 3 ML VIAL NEB PRN ×2 (07:50→15:58)
--- NOTE | 2022-12-21 08:34 | Communication Note ---
Date of Service: December 21, 2022 Palliative Medicine Brief Note No acute inpatient palliative medicine symptom mgt needs. Patient is refusing all dc plan offers and only wants home with [facility] caregivers, approved for 90 hr but no staff from caregiving agencies/pt is aware. She has potential offers from SNF/rehabs but she refuses. My recommendations are outlined in prior consult note: pt does not desire any ACP planning, feels she has already "defied the odds" so she believes there is no reason to think she cannot do it again. Palliative Medicine will sign off but remain available for re engagement if needed. TS 12 min, no charge submitted/pt not seen. Brooke Lerma DNP Clinical Director, Palliative Medicine
[2022-12-21] MEDS: ASPIRIN 81 MG ECTAB PO SCH (09:09)
[2022-12-21] MEDS: INSULIN, Rapid-Acting PUMP SCH ×4 (09:09→22:09)
[2022-12-21] MEDS: DOCUSATE SODIUM 100 MG CAP PO SCH ×2 (09:10→19:59)
[2022-12-21] MEDS: METOPROLOL TARTRATE 25 MG TAB PO SCH ×2 (09:10→20:00)
[2022-12-21] MEDS: SPIRONOLACTONE 25 MG TAB PO SCH (09:12)
[2022-12-21] MEDS: MULTIVITAMIN TAB PO SCH (09:12)
[2022-12-21] MEDS: ISOSORBIDE MONO EXTENDED REL 30 MG TABCR PO SCH (09:12)
[2022-12-21] MEDS: buPROPion SR 100 MG TABCR PO SCH ×2 (09:13→19:58)
[2022-12-21] MEDS: SERTRALINE HCL 50 MG TABLET PO SCH (09:13)
[2022-12-21] MEDS: TOPIRAMATE 100 MG TAB PO SCH ×2 (09:13→19:59)
[2022-12-21] MEDS: MAGNESIUM OXIDE 400 MG TAB PO SCH (09:14)
[2022-12-21] MEDS: CHOLECALCIFEROL 1,000 UNITS 25 MCG TAB PO SCH (09:14)
[2022-12-21] MEDS: FOLIC ACID 1 MG TAB PO SCH (09:14)
[2022-12-21] MEDS: EMPAGLIFLOZIN 10 MG TAB PO SCH (09:14)
[2022-12-21] MEDS: ENOXAPARIN INJ 40 MG/0.4 ML SYR SQ SCH ×2 (09:15→20:01)
[2022-12-21] MEDS: DICLOFENAC SOD 1% GEL 100 GM TUBE EXT SCH ×4 (09:16→19:57)
[2022-12-21] MEDS: BACITRACIN OINT 15 GM TUBE EXT SCH ×2 (09:16→20:01)
[2022-12-21] MEDS: CALCIUM CITRATE 950 MG TAB PO SCH (12:48)
--- NOTE | 2022-12-21 17:49 | Hospitalist Progress Note ---
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 Cont nonoperative management. TTWB allowed by Dr Contreras to RLE as of 11/29/22. Pt prefers total non-weightbearing to the RLE, however. Pain regimen -- Cont tylenol 1gm TID. Cont oxy 10mg prn. Cont voltaren gel qid. (2) Adjustment disorder with depressed mood: Plan: stable, improving. depressed due to PROLONGED institutionalized status (here, [facility], multiple SNF, etc), not being able to see her daughter, poor sleep, etc remains on wellbutrin 100mg qam + wellbutrin 200mg qhs along with topamax 100mg qam and 200mg qhs sertraline 25mg daily initiated on 11/28/22 ; increased the dose to 50mg daily on 12/11/22. could increase to 75mg in early December, if needed. previous TSH, B12, 25-OH vit D levels -- all wnl (3) Acute on chronic combined systolic and diastolic CHF (congestive heart failure): Plan: Cont torsemide 20 mg daily. Of note - weights had been rising slowly over the last 2-3 weeks. Continue spironolactone, metoprolol, isosorbide mononitrate, ASA, atorvastatin. Last echo - 09/2022 with EF 45-50%. (4) Type 2 diabetes mellitus: Plan: On insulin pump with excellent readings (<200 all times) and no hypoglycemia. Most recent a1c = 7.2% in 10/2022. Cont jardiance. (5) Weakness: Plan: Cont PT/OT as tolerated. Treat underlying depression. Would benefit from rehab at SNF or other facility but refusing - will only entertain idea of going home with caregivers. She lives with her daughter Carmen who is disabled. (6) Hypothyroidism (acquired): Plan: Continue Levothyroxine. TSH 1.1 on 10/22/22. (7) GERD (gastroesophageal reflux disease): Plan: Continue protonix (8) Anxiety: Plan: cont zoloft 50mg daily (9) Morbid obesity with BMI of 60.0-69.9, adult: Plan: BMI 63-64 (10) Poor social situation: Plan: her prolonged hospital stay is due to disposition difficulties she was previously at [facility] - refuses to go back there she refuses to attend another SNF or go out of the [facility] for placement she wishes to go home with caregivers/HH by report has a large # of hours (90 by report) approved for in-home personal care; however, finding caregivers has been severely problematic social work has contacted between 20-30 home health agencies to try and secure help to no avail further, she needs a ramp built to be able to enter her home she also needs her entryway door widened to accommodate a large wheelchair social work continues to work on all of the above unfortunately no new leads on securing caregivers for her exhaustive search continues (11) DVT prophylaxis: Plan: lovenox 40mg BID due to extreme morbid obesity Admission and Anticipated Discharge Date Admission Date: October 01, 2022 Subjective No complaint today discussed with the medical case manager and today so far no discharge planning Results & Data Results [facility] ([facility]) Vital Signs (Past 12 Hours) Vital Signs Temp Pulse Resp BP Pulse Ox O2 Del Method 12/21/22 16:43 36.7 C 73 18 143/66 H 94 Room Air 12/21/22 15:58 81 18 96 Room Air 12/21/22 09:00 72 122/74 12/21/22 08:21 36.7 C 66 16 136/72 94 Room Air 12/21/22 07:51 60 18 95 Room Air PG Care Time/CCT Total # of Minutes Spent Total Time Spent with Patient: Total time spent is greater than 50% in coordination of care (as documented) at patient's floor/unit and/or counseling patient: Coding Level of Care Code 73264 SUB INP/OBS CARE 1/25MIN Diagnoses Fracture of distal end of right femur S72.401A Adjustment disorder with depressed mood F43.21 Acute on chronic combined systolic and diastolic CHF (congestive heart failure) I50.43 Type 2 diabetes mellitus E11.9 Weakness R53.1 Hypothyroidism (acquired) E03.9 GERD (gastroesophageal reflux disease) K21.9 Anxiety F41.9 Morbid obesity with BMI of 60.0-69.9, adult E66.01; Z68.44 Poor social situation Z65.9 DVT prophylaxis Z29.9
[2022-12-21] MEDS: ATORVASTATIN 40 MG TAB PO SCH (19:57)
[2022-12-21] MEDS: MELATONIN 3 MG TAB PO SCH (19:59)
[2022-12-22] MEDS: PANTOprazole 40 MG TAB PO SCH (06:16)
[2022-12-22] MEDS: LEVOTHYROXINE SODIUM 25 MCG TABLET PO SCH (06:16)
[2022-12-22] MEDS: TORSEMIDE 20 MG TAB PO SCH (06:16)
[2022-12-22] MEDS: LEVOTHYROXINE SODIUM 200 MCG TABLET PO SCH (06:17)
[2022-12-22] MEDS: ALBUT/IPRATROP 3MG/0.5MG NEB 3 ML VIAL NEB PRN ×2 (07:14→15:17)
[2022-12-22] MEDS: METOPROLOL TARTRATE 25 MG TAB PO SCH ×2 (09:23→20:12)
[2022-12-22] MEDS: INSULIN, Rapid-Acting PUMP SCH ×4 (09:23→21:09)
[2022-12-22] MEDS: ASPIRIN 81 MG ECTAB PO SCH (09:24)
[2022-12-22] MEDS: MAGNESIUM OXIDE 400 MG TAB PO SCH (09:24)
[2022-12-22] MEDS: AZITHROMYCIN 250 MG TAB PO SCH (09:24)
[2022-12-22] MEDS: buPROPion SR 100 MG TABCR PO SCH ×2 (09:25→20:13)
[2022-12-22] MEDS: MULTIVITAMIN TAB PO SCH (09:25)
[2022-12-22] MEDS: EMPAGLIFLOZIN 10 MG TAB PO SCH (09:25)
[2022-12-22] MEDS: TOPIRAMATE 100 MG TAB PO SCH ×2 (09:26→20:09)
[2022-12-22] MEDS: SERTRALINE HCL 50 MG TABLET PO SCH (09:26)
[2022-12-22] MEDS: CHOLECALCIFEROL 1,000 UNITS 25 MCG TAB PO SCH (09:26)
[2022-12-22] MEDS: DOCUSATE SODIUM 100 MG CAP PO SCH ×2 (09:26→20:11)
[2022-12-22] MEDS: DICLOFENAC SOD 1% GEL 100 GM TUBE EXT SCH ×4 (09:27→20:09)
[2022-12-22] MEDS: SPIRONOLACTONE 25 MG TAB PO SCH (09:27)
[2022-12-22] MEDS: ISOSORBIDE MONO EXTENDED REL 30 MG TABCR PO SCH (09:27)
[2022-12-22] MEDS: ENOXAPARIN INJ 40 MG/0.4 ML SYR SQ SCH ×2 (09:27→20:10)
[2022-12-22] MEDS: BACITRACIN OINT 15 GM TUBE EXT SCH ×2 (09:28→20:13)
[2022-12-22] MEDS: FOLIC ACID 1 MG TAB PO SCH (09:28)
[2022-12-22] MEDS: CALCIUM CITRATE 950 MG TAB PO SCH (13:35)
--- NOTE | 2022-12-22 17:25 | Hospitalist Progress Note ---
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 Cont nonoperative management. TTWB allowed by Dr Contreras to RLE as of 11/29/22. Pt prefers total non-weightbearing to the RLE, however. Pain regimen -- Cont tylenol 1gm TID. Cont oxy 10mg prn. Cont voltaren gel qid. (2) Adjustment disorder with depressed mood: Plan: stable, improving. depressed due to PROLONGED institutionalized status (here, [facility], multiple SNF, etc), not being able to see her daughter, poor sleep, etc remains on wellbutrin 100mg qam + wellbutrin 200mg qhs along with topamax 100mg qam and 200mg qhs sertraline 25mg daily initiated on 11/28/22 ; increased the dose to 50mg daily on 12/11/22. could increase to 75mg if needed. previous TSH, B12, 25-OH vit D levels -- all wnl (3) Acute on chronic combined systolic and diastolic CHF (congestive heart failure): Plan: Cont torsemide 20 mg daily. Of note - weights had been rising slowly over the last 2-3 weeks. Continue spironolactone, metoprolol, isosorbide mononitrate, ASA, atorvastatin. Last echo - 09/2022 with EF 45-50%. (4) Type 2 diabetes mellitus: Plan: On insulin pump with excellent readings (<200 all times) and no hypoglycemia. Most recent a1c = 7.2% in 10/2022. Cont jardiance. (5) Weakness: Plan: Cont PT/OT as tolerated. Treat underlying depression. Would benefit from rehab at SNF or other facility but refusing - will only entertain idea of going home with caregivers. She lives with her daughter Carmen who is disabled. (6) Hypothyroidism (acquired): Plan: Continue Levothyroxine. TSH 1.1 on 10/22/22. (7) GERD (gastroesophageal reflux disease): Plan: Continue protonix (8) Anxiety: Plan: cont zoloft 50mg daily (9) Morbid obesity with BMI of 60.0-69.9, adult: Plan: BMI 63-64 (10) Poor social situation: Plan: her prolonged hospital stay is due to disposition difficulties she was previously at [facility] - refuses to go back there she refuses to attend another SNF or go out of the [facility] for placement she wishes to go home with caregivers/HH by report has a large # of hours (90 by report) approved for in-home personal care; however, finding caregivers has been severely problematic social work has contacted between 20-30 home health agencies to try and secure help to no avail further, she needs a ramp built to be able to enter her home she also needs her entryway door widened to accommodate a large wheelchair social work continues to work on all of the above unfortunately no new leads on securing caregivers for her exhaustive search continues Per the legal department, no one could be forced to go to a fpc (11) DVT prophylaxis: Plan: lovenox 40mg BID due to extreme morbid obesity Plan awaiting disposition Admission and Anticipated Discharge Date Admission Date: October 01, 2022 Subjective patient seen and examined, sitting up in the chair Review of Systems Review of Systems: All systems reviewed are negative, apart from the ones contained in the history. Physical Exam Physical Exam: The patient is awake, alert and oriented 3, morbidly obese HEENT--PERRL, EOMI, mucous membranes and oropharynx mildly dry Neck--supple. No JVD. No bruits. Thyroid normal, trachea midline, no adenopathy. Heart--normal S1 and S2. No murmurs, rubs or gallops. Lungs--clear bilaterally, no respiratory distress, no accessory muscle use. Abdomen--normal bowel sounds and soft. Mild epigastric and left sided abdominal pain Extremities--no cyanosis or clubbing. No edema. Dermatologic--normal skin turgor, normal color, no abnormal lymph nodes, no rash. Neurologic--cranial nerves II through XII grossly intact. Rheumatologic--normal range of motion. Psychiatric--normal affect. Results & Data Results & Data ([facility]) Vital Signs (Past 12 Hours) Vital Signs Temp Pulse Resp BP Pulse Ox O2 Del Method 12/22/22 15:23 98.1 F 66 16 132/66 97 Room Air 12/22/22 15:17 66 18 97 Room Air 12/22/22 09:20 68 119/66 12/22/22 08:21 98.1 F 66 18 165/70 H 97 Room Air 12/22/22 07:50 Room Air 12/22/22 07:15 65 18 94 Room Air PG Care Time/CCT Total # of Minutes Spent Total Time Spent with Patient: Total time spent is greater than 50% in coordination of care (as documented) at patient's floor/unit and/or counseling patient: Coding Level of Care Code 40912 SUB INP/OBS CARE 2/35MIN Diagnoses Fracture of distal end of right femur S72.401A Adjustment disorder with depressed mood F43.21 Acute on chronic combined systolic and diastolic CHF (congestive heart failure) I50.43 Type 2 diabetes mellitus E11.9 Weakness R53.1 Hypothyroidism (acquired) E03.9 GERD (gastroesophageal reflux disease) K21.9 Anxiety F41.9 Morbid obesity with BMI of 60.0-69.9, adult E66.01; Z68.44 Poor social situation Z65.9 DVT prophylaxis Z29.9 Time Spent (min) 35
[2022-12-22] MEDS: oxyCODONE HCL IR 5 MG TAB (IMMEDIATE RELEASE) PO PRN (18:06)
[2022-12-22] MEDS: MELATONIN 3 MG TAB PO SCH (20:11)
[2022-12-22] MEDS: ATORVASTATIN 40 MG TAB PO SCH (20:11)
[2022-12-23] MEDS: LEVOTHYROXINE SODIUM 25 MCG TABLET PO SCH (05:57)
[2022-12-23] MEDS: TORSEMIDE 20 MG TAB PO SCH (05:57)
[2022-12-23] MEDS: LEVOTHYROXINE SODIUM 200 MCG TABLET PO SCH (05:58)
[2022-12-23] MEDS: ALBUT/IPRATROP 3MG/0.5MG NEB 3 ML VIAL NEB PRN ×2 (07:27→16:14)
[2022-12-23] MEDS: PANTOprazole 40 MG TAB PO SCH (07:53)
[2022-12-23] MEDS: TORSEMIDE 10 MG TAB PO PRN (07:54)
[2022-12-23] MEDS: ISOSORBIDE MONO EXTENDED REL 30 MG TABCR PO SCH (07:54)
[2022-12-23] MEDS: SERTRALINE HCL 50 MG TABLET PO SCH (07:54)
[2022-12-23] MEDS: DOCUSATE SODIUM 100 MG CAP PO SCH ×2 (07:54→20:06)
[2022-12-23] MEDS: TOPIRAMATE 100 MG TAB PO SCH ×2 (07:55→20:04)
[2022-12-23] MEDS: METOPROLOL TARTRATE 25 MG TAB PO SCH ×2 (07:55→20:04)
[2022-12-23] MEDS: EMPAGLIFLOZIN 10 MG TAB PO SCH (07:55)
[2022-12-23] MEDS: ASPIRIN 81 MG ECTAB PO SCH (07:55)
[2022-12-23] MEDS: MULTIVITAMIN TAB PO SCH (07:55)
[2022-12-23] MEDS: FOLIC ACID 1 MG TAB PO SCH (07:56)
[2022-12-23] MEDS: CHOLECALCIFEROL 1,000 UNITS 25 MCG TAB PO SCH (07:56)
[2022-12-23] MEDS: SPIRONOLACTONE 25 MG TAB PO SCH (07:56)
[2022-12-23] MEDS: buPROPion SR 100 MG TABCR PO SCH ×2 (07:56→20:06)
[2022-12-23] MEDS: ENOXAPARIN INJ 40 MG/0.4 ML SYR SQ SCH ×2 (07:56→20:05)
[2022-12-23] MEDS: BACITRACIN OINT 15 GM TUBE EXT SCH ×2 (07:59→20:07)
[2022-12-23] MEDS: DICLOFENAC SOD 1% GEL 100 GM TUBE EXT SCH ×4 (08:00→20:01)
[2022-12-23] MEDS: MAGNESIUM OXIDE 400 MG TAB PO SCH (08:03)
[2022-12-23] MEDS: INSULIN, Rapid-Acting PUMP SCH ×4 (09:06→21:25)
[2022-12-23] MEDS: CALCIUM CITRATE 950 MG TAB PO SCH (12:58)
[2022-12-23] MEDS: oxyCODONE HCL IR 5 MG TAB (IMMEDIATE RELEASE) PO PRN (13:29)
--- NOTE | 2022-12-23 13:44 | Hospitalist Progress Note ---
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 Cont nonoperative management. TTWB allowed by Dr Contreras to RLE as of 11/29/22. Pt prefers total non-weightbearing to the RLE, however. Pain regimen: Cont tylenol 1gm TID PRN Cont oxy 10mg prn. Cont voltaren gel qid. (2) Adjustment disorder with depressed mood: Plan: stable, improving. depressed due to PROLONGED institutionalized status (here, [facility], multiple SNF, etc), not being able to see her daughter, poor sleep, etc remains on wellbutrin 100mg qam + wellbutrin 200mg qhs along with topamax 100mg qam and 200mg qhs sertraline 25mg daily initiated on 11/28/22 ; increased the dose to 50mg daily on 12/11/22. could increase to 75mg if needed. previous TSH, B12, 25-OH vit D levels -- all wnl (3) Acute on chronic combined systolic and diastolic CHF (congestive heart failu re): Plan: Cont torsemide 20 mg daily. Continue spironolactone, metoprolol, isosorbide mononitrate, ASA, atorvastatin. Last echo - 09/2022 with EF 45-50%. (4) Type 2 diabetes mellitus: Plan: On insulin pump with excellent readings (<200 all times) and no hypoglycemia. Most recent a1c = 7.2% in 10/2022. Cont jardiance. (5) Weakness: Plan: Cont PT/OT as tolerated. Treat underlying depression. Would benefit from rehab at [facility] or other facility but refusing - will only entertain idea of going home with caregivers. She lives with her daughter Carmen who is disabled. (6) Hypothyroidism (acquired): Plan: Continue Levothyroxine. TSH 1.1 on 10/22/22. (7) GERD (gastroesophageal reflux disease): Plan: Continue protonix (8) Anxiety: Plan: cont zoloft 50mg daily (9) Morbid obesity with BMI of 60.0-69.9, adult: Plan: BMI 63-64 (10) Poor social situation: Plan: her prolonged hospital stay is due to disposition difficulties she was previously at [facility] - refuses to go back there she refuses to attend another SNF or go out of the [facility] for [place] she wishes to go home with caregivers/HH by report has a large # of hours (90 by report) approved for in-home personal care; however, finding caregivers has been severely problematic social work has contacted between 20-30 home health agencies to try and secure help to no avail further, she needs a ramp built to be able to enter her home she also needs her entryway door widened to accommodate a large wheelchair social work continues to work on all of the above unfortunately no new leads on securing caregivers for her exhaustive search continues Per the legal department, no one could be forced to go to a long term (11) DVT prophylaxis: Plan: lovenox 40mg BID due to extreme morbid obesity Plan awaiting disposition Admission and Anticipated Discharge Date Admission Date: October 01, 2022 Subjective patient seen and examined, sitting up in the chair, no new complaints Review of Systems Review of Systems: All systems reviewed are negative, apart from the ones contained in the history. Physical Exam Physical Exam: The patient is awake, alert and oriented 3, morbidly obese HEENT--PERRL, EOMI, mucous membranes and oropharynx mildly dry Neck--supple. No JVD. No bruits. Thyroid normal, trachea midline, no adenopathy. Heart--normal S1 and S2. No murmurs, rubs or gallops. Lungs--clear bilaterally, no respiratory distress, no accessory muscle use. Abdomen--normal bowel sounds and soft. Mild epigastric and left sided abdominal pain Extremities--no cyanosis or clubbing. No edema. Dermatologic--normal skin turgor, normal color, no abnormal lymph nodes, no rash. Neurologic--cranial nerves II through XII grossly intact. Rheumatologic--normal range of motion. Psychiatric--normal affect. Results & Data Results & Data ([facility]) Vital Signs (Past 12 Hours) Vital Signs Temp Pulse Resp BP Pulse Ox O2 Del Method 12/23/22 10:31 Room Air 12/23/22 07:38 97.9 F 66 16 126/74 92 Nebulizer 12/23/22 07:27 66 18 92 Room Air PG Care Time/CCT Total # of Minutes Spent Total Time Spent with Patient: Total time spent is greater than 50% in coordination of care (as documented) at patient's floor/unit and/or counseling patient: Coding Level of Care Code 86333 SUB INP/OBS CARE MIN Diagnoses Fracture of distal end of right femur S72.401A Adjustment disorder with depressed mood F43.21 Acute on chronic combined systolic and diastolic CHF (congestive heart failure) I50.43 Type 2 diabetes mellitus E11.9 Weakness R53.1 Hypothyroidism (acquired) E03.9 GERD (gastroesophageal reflux disease) K21.9 Anxiety F41.9 Morbid obesity with BMI of 60.0-69.9, adult E66.01; Z68.44 Poor social situation Z65.9 DVT prophylaxis Z29.9 Time Spent (min) 35
[2022-12-23] MEDS: ATORVASTATIN 40 MG TAB PO SCH (20:03)
[2022-12-23] MEDS: MELATONIN 3 MG TAB PO SCH (20:05)
[2022-12-24] MEDS: TORSEMIDE 20 MG TAB PO SCH (05:46)
[2022-12-24] MEDS: LEVOTHYROXINE SODIUM 25 MCG TABLET PO SCH (05:46)
[2022-12-24] MEDS: LEVOTHYROXINE SODIUM 200 MCG TABLET PO SCH (05:47)
[2022-12-24] MEDS: PANTOprazole 40 MG TAB PO SCH (05:47)
[2022-12-24] MEDS: oxyCODONE HCL IR 5 MG TAB (IMMEDIATE RELEASE) PO PRN ×2 (05:49→23:36)
[2022-12-24] MEDS: ALBUT/IPRATROP 3MG/0.5MG NEB 3 ML VIAL NEB PRN ×2 (07:18→15:28)
[2022-12-24] MEDS: DOCUSATE SODIUM 100 MG CAP PO SCH ×2 (08:16→20:48)
[2022-12-24] MEDS: METOPROLOL TARTRATE 25 MG TAB PO SCH ×2 (08:16→20:46)
[2022-12-24] MEDS: ISOSORBIDE MONO EXTENDED REL 30 MG TABCR PO SCH (08:16)
[2022-12-24] MEDS: MAGNESIUM OXIDE 400 MG TAB PO SCH (08:17)
[2022-12-24] MEDS: SPIRONOLACTONE 25 MG TAB PO SCH (08:17)
[2022-12-24] MEDS: TOPIRAMATE 100 MG TAB PO SCH ×2 (08:17→20:48)
[2022-12-24] MEDS: CHOLECALCIFEROL 1,000 UNITS 25 MCG TAB PO SCH (08:17)
[2022-12-24] MEDS: DICLOFENAC SOD 1% GEL 100 GM TUBE EXT SCH ×4 (08:17→20:45)
[2022-12-24] MEDS: EMPAGLIFLOZIN 10 MG TAB PO SCH (08:17)
[2022-12-24] MEDS: FOLIC ACID 1 MG TAB PO SCH (08:17)
[2022-12-24] MEDS: ENOXAPARIN INJ 40 MG/0.4 ML SYR SQ SCH ×2 (08:18→20:45)
[2022-12-24] MEDS: AZITHROMYCIN 250 MG TAB PO SCH (08:18)
[2022-12-24] MEDS: BACITRACIN OINT 15 GM TUBE EXT SCH ×2 (08:18→20:45)
[2022-12-24] MEDS: SERTRALINE HCL 50 MG TABLET PO SCH (08:18)
[2022-12-24] MEDS: INSULIN, Rapid-Acting PUMP SCH ×4 (09:41→21:01)
[2022-12-24] MEDS: CALCIUM CITRATE 950 MG TAB PO SCH (12:45)
--- NOTE | 2022-12-24 12:45 | Hospitalist Progress Note ---
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 Cont nonoperative management. TTWB allowed by Dr Contreras to RLE as of 11/29/22. Pt prefers total non-weightbearing to the RLE, however. Pain regimen: Cont tylenol 1gm TID PRN Cont oxy 10mg prn. Cont voltaren gel qid. (2) Adjustment disorder with depressed mood: Plan: stable, improving. depressed due to PROLONGED institutionalized status (here, [facility], multiple SNF, etc), not being able to see her daughter, poor sleep, etc remains on wellbutrin 100mg qam + wellbutrin 200mg qhs along with topamax 100mg qam and 200mg qhs sertraline 25mg daily initiated on 11/28/22 ; increased the dose to 50mg daily on 12/11/22. could increase to 75mg if needed. previous TSH, B12, 25-OH vit D levels -- all wnl (3) Acute on chronic combined systolic and diastolic CHF (congestive heart failu re): Plan: Cont torsemide 20 mg daily. Continue spironolactone, metoprolol, isosorbide mononitrate, ASA, atorvastatin. Last echo - 09/2022 with EF 45-50%. (4) Type 2 diabetes mellitus: Plan: On insulin pump with excellent readings (<200 all times) and no hypoglycemia. Most recent a1c = 7.2% in 10/2022. Cont jardiance. (5) Weakness: Plan: Cont PT/OT as tolerated. Treat underlying depression. Would benefit from rehab at [facility] or other facility but refusing - will only entertain idea of going home with caregivers. She lives with her daughter Carmen who is disabled. (6) Hypothyroidism (acquired): Plan: Continue Levothyroxine. TSH 1.1 on 10/22/22. (7) GERD (gastroesophageal reflux disease): Plan: Continue protonix (8) Anxiety: Plan: cont zoloft 50mg daily (9) Morbid obesity with BMI of 60.0-69.9, adult: Plan: BMI 63-64 (10) Poor social situation: Plan: her prolonged hospital stay is due to disposition difficulties she was previously at [facility] - refuses to go back there she refuses to attend another SNF or go out of the [facility] for [place] she wishes to go home with caregivers/HH by report has a large # of hours (90 by report) approved for in-home personal care; however, finding caregivers has been severely problematic social work has contacted between 20-30 home health agencies to try and secure help to no avail further, she needs a ramp built to be able to enter her home she also needs her entryway door widened to accommodate a large wheelchair social work continues to work on all of the above unfortunately no new leads on securing caregivers for her exhaustive search continues Per the legal department, no one could be forced to go to a long term (11) DVT prophylaxis: Plan: lovenox 40mg BID due to extreme morbid obesity Plan awaiting disposition Admission and Anticipated Discharge Date Admission Date: October 01, 2022 Subjective patient seen and examined, sitting up in the chair, no new complaints, says she slept well Review of Systems Review of Systems: All systems reviewed are negative, apart from the ones contained in the history. Physical Exam Physical Exam: The patient is awake, alert and oriented 3, morbidly obese HEENT--PERRL, EOMI, mucous membranes and oropharynx mildly dry Neck--supple. No JVD. No bruits. Thyroid normal, trachea midline, no adenopathy. Heart--normal S1 and S2. No murmurs, rubs or gallops. Lungs--clear bilaterally, no respiratory distress, no accessory muscle use. Abdomen--normal bowel sounds and soft. Mild epigastric and left sided abdominal pain Extremities--no cyanosis or clubbing. No edema. Dermatologic--normal skin turgor, normal color, no abnormal lymph nodes, no rash. Neurologic--cranial nerves II through XII grossly intact. Rheumatologic--normal range of motion. Psychiatric--normal affect. Results & Data Results & Data ([facility]) Vital Signs (Past 12 Hours) Vital Signs Temp Pulse Pulse Resp BP Pulse Ox O2 Del Method 12/24/22 08:13 97.7 F 73 18 124/65 92 Room Air 12/24/22 07:18 70 18 93 Room Air PG Care Time/CCT Total # of Minutes Spent Total Time Spent with Patient: Total time spent is greater than 50% in coordination of care (as documented) at patient's floor/unit and/or counseling patient: Coding Level of Care Code 44628 SUB INP/OBS CARE MIN Diagnoses Fracture of distal end of right femur S72.401A Adjustment disorder with depressed mood F43.21 Acute on chronic combined systolic and diastolic CHF (congestive heart failure) I50.43 Type 2 diabetes mellitus E11.9 Weakness R53.1 Hypothyroidism (acquired) E03.9 GERD (gastroesophageal reflux disease) K21.9 Anxiety F41.9 Morbid obesity with BMI of 60.0-69.9, adult E66.01; Z68.44 Poor social situation Z65.9 DVT prophylaxis Z29.9 Time Spent (min) 35
[2022-12-24] MEDS: ATORVASTATIN 40 MG TAB PO SCH (20:46)
[2022-12-24] MEDS: MELATONIN 3 MG TAB PO SCH (20:46)
[2022-12-24] MEDS: buPROPion SR 100 MG TABCR PO SCH (20:47)
[2022-12-25] MEDS: PANTOprazole 40 MG TAB PO SCH (06:39)
[2022-12-25] MEDS: LEVOTHYROXINE SODIUM 25 MCG TABLET PO SCH (06:40)
[2022-12-25] MEDS: TORSEMIDE 20 MG TAB PO SCH (06:40)
[2022-12-25] MEDS: LEVOTHYROXINE SODIUM 200 MCG TABLET PO SCH (06:40)
[2022-12-25] MEDS: ALBUT/IPRATROP 3MG/0.5MG NEB 3 ML VIAL NEB PRN ×2 (07:38→14:56)
[2022-12-25] MEDS: DOCUSATE SODIUM 100 MG CAP PO SCH ×2 (08:56→20:16)
[2022-12-25] MEDS: ENOXAPARIN INJ 40 MG/0.4 ML SYR SQ SCH ×2 (08:56→20:15)
[2022-12-25] MEDS: DICLOFENAC SOD 1% GEL 100 GM TUBE EXT SCH ×4 (08:57→20:14)
[2022-12-25] MEDS: METOPROLOL TARTRATE 25 MG TAB PO SCH ×2 (08:57→20:20)
[2022-12-25] MEDS: BACITRACIN OINT 15 GM TUBE EXT SCH ×2 (08:57→20:14)
[2022-12-25] MEDS: MAGNESIUM OXIDE 400 MG TAB PO SCH (08:58)
[2022-12-25] MEDS: SPIRONOLACTONE 25 MG TAB PO SCH (08:58)
[2022-12-25] MEDS: TOPIRAMATE 100 MG TAB PO SCH ×2 (08:58→20:17)
[2022-12-25] MEDS: CHOLECALCIFEROL 1,000 UNITS 25 MCG TAB PO SCH (08:59)
[2022-12-25] MEDS: EMPAGLIFLOZIN 10 MG TAB PO SCH (08:59)
[2022-12-25] MEDS: SERTRALINE HCL 50 MG TABLET PO SCH (08:59)
[2022-12-25] MEDS: ISOSORBIDE MONO EXTENDED REL 30 MG TABCR PO SCH (09:00)
[2022-12-25] MEDS: FOLIC ACID 1 MG TAB PO SCH (09:00)
[2022-12-25] MEDS: INSULIN, Rapid-Acting PUMP SCH ×4 (10:15→21:25)
[2022-12-25] MEDS: CALCIUM CITRATE 950 MG TAB PO SCH (12:42)
[2022-12-25] MEDS: oxyCODONE HCL IR 5 MG TAB (IMMEDIATE RELEASE) PO PRN (13:38)
--- NOTE | 2022-12-25 14:17 | Hospitalist Progress Note ---
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 Cont nonoperative management. TTWB allowed by Dr Contreras to RLE as of 11/29/22. Pt prefers total non-weightbearing to the RLE, however. Pain regimen: Cont tylenol 1gm TID PRN Cont oxy 10mg prn. Cont voltaren gel qid. (2) Adjustment disorder with depressed mood: Plan: stable, improving. depressed due to PROLONGED institutionalized status (here, [facility], multiple SNF, etc), not being able to see her daughter, poor sleep, etc remains on wellbutrin 100mg qam + wellbutrin 200mg qhs along with topamax 100mg qam and 200mg qhs sertraline 25mg daily initiated on 11/28/22 ; increased the dose to 50mg daily on 12/11/22. could increase to 75mg if needed. previous TSH, B12, 25-OH vit D levels -- all wnl (3) Acute on chronic combined systolic and diastolic CHF (congestive heart failu re): Plan: Cont torsemide 20 mg daily. Continue spironolactone, metoprolol, isosorbide mononitrate, ASA, atorvastatin. Last echo - 09/2022 with EF 45-50%. (4) Type 2 diabetes mellitus: Plan: On insulin pump with excellent readings (<200 all times) and no hypoglycemia. Most recent a1c = 7.2% in 10/2022. Cont jardiance. (5) Weakness: Plan: Cont PT/OT as tolerated. Treat underlying depression. Would benefit from rehab at [facility] or other facility but refusing - will only entertain idea of going home with caregivers. She lives with her daughter Carmen who is disabled. (6) Hypothyroidism (acquired): Plan: Continue Levothyroxine. TSH 1.1 on 10/22/22. (7) GERD (gastroesophageal reflux disease): Plan: Continue protonix (8) Anxiety: Plan: cont zoloft 50mg daily (9) Morbid obesity with BMI of 60.0-69.9, adult: Plan: BMI 63-64 (10) Poor social situation: Plan: her prolonged hospital stay is due to disposition difficulties she was previously at [facility] - refuses to go back there she refuses to attend another SNF or go out of the [facility] for [place] she wishes to go home with caregivers/HH by report has a large # of hours (90 by report) approved for in-home personal care; however, finding caregivers has been severely problematic social work has contacted between 20-30 home health agencies to try and secure help to no avail further, she needs a ramp built to be able to enter her home she also needs her entryway door widened to accommodate a large wheelchair social work continues to work on all of the above unfortunately no new leads on securing caregivers for her exhaustive search continues Per the legal department, no one could be forced to go to a snf (11) DVT prophylaxis: Plan: lovenox 40mg BID due to extreme morbid obesity Plan awaiting disposition Admission and Anticipated Discharge Date Admission Date: October 01, 2022 Subjective patient seen and examined, sitting up in the chair, no new complaints, says she slept well Review of Systems Review of Systems: All systems reviewed are negative, apart from the ones contained in the history. Physical Exam Physical Exam: The patient is awake, alert and oriented 3, morbidly obese HEENT--PERRL, EOMI, mucous membranes and oropharynx mildly dry Neck--supple. No JVD. No bruits. Thyroid normal, trachea midline, no adenopathy. Heart--normal S1 and S2. No murmurs, rubs or gallops. Lungs--clear bilaterally, no respiratory distress, no accessory muscle use. Abdomen--normal bowel sounds and soft. Mild epigastric and left sided abdominal pain Extremities--no cyanosis or clubbing. No edema. Dermatologic--normal skin turgor, normal color, no abnormal lymph nodes, no rash. Neurologic--cranial nerves II through XII grossly intact. Rheumatologic--normal range of motion. Psychiatric--normal affect. Results & Data Results & Data ([facility]) Vital Signs (Past 12 Hours) Vital Signs Temp Pulse Pulse Resp BP Pulse Ox O2 Del Method 12/25/22 08:25 Room Air 12/25/22 08:55 71 120/65 12/25/22 07:39 66 20 96 Room Air 12/25/22 07:17 97.5 F L 67 16 137/77 94 Room Air PG Care Time/CCT Total # of Minutes Spent Total Time Spent with Patient: Total time spent is greater than 50% in coordination of care (as documented) at patient's floor/unit and/or counseling patient: Coding Level of Care Code 17867 SUB INP/OBS CARE 2/35MIN Diagnoses Fracture of distal end of right femur S72.401A Adjustment disorder with depressed mood F43.21 Acute on chronic combined systolic and diastolic CHF (congestive heart failure) I50.43 Type 2 diabetes mellitus E11.9 Weakness R53.1 Hypothyroidism (acquired) E03.9 GERD (gastroesophageal reflux disease) K21.9 Anxiety F41.9 Morbid obesity with BMI of 60.0-69.9, adult E66.01; Z68.44 Poor social situation Z65.9 DVT prophylaxis Z29.9 Time Spent (min) 35
[2022-12-25] MEDS: ATORVASTATIN 40 MG TAB PO SCH (20:16)
[2022-12-25] MEDS: MELATONIN 3 MG TAB PO SCH (20:17)
[2022-12-25] MEDS: buPROPion SR 100 MG TABCR PO SCH (20:17)
[2022-12-26] MEDS: LEVOTHYROXINE SODIUM 25 MCG TABLET PO SCH (06:31)
[2022-12-26] MEDS: LEVOTHYROXINE SODIUM 200 MCG TABLET PO SCH (06:31)
[2022-12-26] MEDS: PANTOprazole 40 MG TAB PO SCH (06:31)
[2022-12-26] MEDS: TORSEMIDE 20 MG TAB PO SCH (06:32)
[2022-12-26] MEDS: ALBUT/IPRATROP 3MG/0.5MG NEB 3 ML VIAL NEB PRN ×2 (07:21→14:22)
[2022-12-26] MEDS: DICLOFENAC SOD 1% GEL 100 GM TUBE EXT SCH ×4 (08:28→20:38)
[2022-12-26] MEDS: ISOSORBIDE MONO EXTENDED REL 30 MG TABCR PO SCH (08:29)
[2022-12-26] MEDS: TORSEMIDE 10 MG TAB PO PRN (08:29)
[2022-12-26] MEDS: SPIRONOLACTONE 25 MG TAB PO SCH (08:29)
[2022-12-26] MEDS: DOCUSATE SODIUM 100 MG CAP PO SCH ×3 (08:29→20:40)
[2022-12-26] MEDS: TOPIRAMATE 100 MG TAB PO SCH ×2 (08:29→20:38)
[2022-12-26] MEDS: FOLIC ACID 1 MG TAB PO SCH (08:29)
[2022-12-26] MEDS: SERTRALINE HCL 50 MG TABLET PO SCH (08:30)
[2022-12-26] MEDS: CHOLECALCIFEROL 1,000 UNITS 25 MCG TAB PO SCH (08:30)
[2022-12-26] MEDS: EMPAGLIFLOZIN 10 MG TAB PO SCH (08:30)
[2022-12-26] MEDS: METOPROLOL TARTRATE 25 MG TAB PO SCH ×2 (08:30→20:35)
[2022-12-26] MEDS: ENOXAPARIN INJ 40 MG/0.4 ML SYR SQ SCH ×2 (08:31→20:38)
[2022-12-26] MEDS: BACITRACIN OINT 15 GM TUBE EXT SCH ×2 (08:31→20:39)
[2022-12-26] MEDS: MAGNESIUM OXIDE 400 MG TAB PO SCH (08:31)
[2022-12-26] MEDS: INSULIN, Rapid-Acting PUMP SCH ×4 (09:31→20:40)
[2022-12-26] MEDS: oxyCODONE HCL IR 5 MG TAB (IMMEDIATE RELEASE) PO PRN ×2 (09:38→20:39)
--- NOTE | 2022-12-26 11:25 | Hospitalist Progress Note ---
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 Cont nonoperative management. TTWB allowed by Dr Contreras to RLE as of 11/29/22. Pt prefers total non-weightbearing to the RLE, however. Pain regimen: Cont tylenol 1gm TID PRN Cont oxy 10mg prn. Cont voltaren gel qid. (2) Adjustment disorder with depressed mood: Plan: Initially thought to be depressed due to PROLONGED institutionalized status (here, [facility], multiple SNF, etc), not being able to see her daughter, poor sleep, etc remains on wellbutrin 100mg qam + wellbutrin 200mg qhs along with topamax 100mg qam and 200mg qhs sertraline 25mg daily initiated on 11/28/22 ; increased the dose to 50mg daily on 12/11/22. could increase to 75mg if needed. previous TSH, B12, 25-OH vit D levels -- all wnl patient currently has a cheerful disposition and affect (3) Acute on chronic combined systolic and diastolic CHF (congestive heart failure): Plan: Cont torsemide 20 mg daily. Continue spironolactone, metoprolol, isosorbide mononitrate, ASA, atorvastatin. Last echo - 09/2022 with EF 45-50%. (4) Type 2 diabetes mellitus: Plan: On insulin pump with excellent readings (<200 all times) and no hypoglycemia. Most recent a1c = 7.2% in 10/2022. Cont jardiance. (5) Weakness: Plan: Cont PT/OT as tolerated. Treat underlying depression. Would benefit from rehab at SNF or other facility but refusing - will only entertain idea of going home with caregivers. She lives with her daughter Carmen who is disabled. (6) Hypothyroidism (acquired): Plan: Continue Levothyroxine. TSH 1.1 on 10/22/22. (7) GERD (gastroesophageal reflux disease): Plan: Continue protonix (8) Anxiety: Plan: cont zoloft 50mg daily (9) Morbid obesity with BMI of 60.0-69.9, adult: Plan: BMI 63-64 Adviced on lifestyle modification (10) Poor social situation: Plan: her prolonged hospital stay is due to disposition difficulties she was previously at [facility] - refuses to go back there she refuses to attend another SNF or go out of the [facility] for placement she wishes to go home with caregivers/HH by report has a large # of hours (90 by report) approved for in-home personal care; however, finding caregivers has been severely problematic social work has contacted between 20-30 home health agencies to try and secure help to no avail further, she needs a ramp built to be able to enter her home she also needs her entryway door widened to accommodate a large wheelchair social work continues to work on all of the above unfortunately no new leads on securing caregivers for her exhaustive search continues Per the legal department, no one could be forced to go to a penitentiary (11) DVT prophylaxis: Plan: lovenox 40mg BID due to extreme morbid obesity Plan awaiting disposition Admission and Anticipated Discharge Date Admission Date: October 01, 2022 Subjective patient seen and examined, sitting up in the chair, no new complaints, says she slept well, appetite is good Review of Systems Review of Systems: All systems reviewed are negative, apart from the ones contained in the history. Physical Exam Physical Exam: The patient is awake, alert and oriented 3, morbidly obese HEENT--PERRL, EOMI, mucous membranes and oropharynx mildly dry Neck--supple. No JVD. No bruits. Thyroid normal, trachea midline, no adenopathy. Heart--normal S1 and S2. No murmurs, rubs or gallops. Lungs--clear bilaterally, no respiratory distress, no accessory muscle use. Abdomen--normal bowel sounds and soft. Mild epigastric and left sided abdominal pain Extremities--no cyanosis or clubbing. No edema. Dermatologic--normal skin turgor, normal color, no abnormal lymph nodes, no rash. Neurologic--cranial nerves II through XII grossly intact. Rheumatologic--normal range of motion. Psychiatric--normal affect. Results & Data Results & Data ([facility]) Vital Signs (Past 12 Hours) Vital Signs Temp Pulse Resp BP Pulse Ox O2 Del Method 12/26/22 08:52 Room Air 12/26/22 07:52 97.9 F 77 18 155/76 H 94 Room Air 12/26/22 07:21 67 20 91 Room Air PG Care Time/CCT Total # of Minutes Spent Total Time Spent with Patient: Total time spent is greater than 50% in coordination of care (as documented) at patient's floor/unit and/or counseling patient: Coding Level of Care Code 22772 SUB INP/OBS CARE 2/35MIN Diagnoses Fracture of distal end of right femur S72.401A Adjustment disorder with depressed mood F43.21 Acute on chronic combined systolic and diastolic CHF (congestive heart failure) I50.43 Type 2 diabetes mellitus E11.9 Weakness R53.1 Hypothyroidism (acquired) E03.9 GERD (gastroesophageal reflux disease) K21.9 Anxiety F41.9 Morbid obesity with BMI of 60.0-69.9, adult E66.01; Z68.44 Poor social situation Z65.9 DVT prophylaxis Z29.9 Time Spent (min) 35
[2022-12-26] MEDS: CALCIUM CITRATE 950 MG TAB PO SCH (12:29)
[2022-12-26] MEDS: buPROPion SR 100 MG TABCR PO SCH (20:36)
[2022-12-26] MEDS: MELATONIN 3 MG TAB PO SCH (20:37)
[2022-12-26] MEDS: ATORVASTATIN 40 MG TAB PO SCH (20:38)
[2022-12-27] MEDS: TORSEMIDE 20 MG TAB PO SCH (06:21)
[2022-12-27] MEDS: LEVOTHYROXINE SODIUM 25 MCG TABLET PO SCH (06:22)
[2022-12-27] MEDS: LEVOTHYROXINE SODIUM 200 MCG TABLET PO SCH (06:22)
[2022-12-27] MEDS: PANTOprazole 40 MG TAB PO SCH (06:22)
[2022-12-27] MEDS: ALBUT/IPRATROP 3MG/0.5MG NEB 3 ML VIAL NEB PRN ×2 (07:25→15:05)
[2022-12-27] MEDS: ISOSORBIDE MONO EXTENDED REL 30 MG TABCR PO SCH (08:35)
[2022-12-27] MEDS: CHOLECALCIFEROL 1,000 UNITS 25 MCG TAB PO SCH (08:35)
[2022-12-27] MEDS: AZITHROMYCIN 250 MG TAB PO SCH (08:35)
[2022-12-27] MEDS: FOLIC ACID 1 MG TAB PO SCH (08:35)
[2022-12-27] MEDS: MAGNESIUM OXIDE 400 MG TAB PO SCH (08:35)
[2022-12-27] MEDS: METOPROLOL TARTRATE 25 MG TAB PO SCH ×2 (08:36→20:59)
[2022-12-27] MEDS: TOPIRAMATE 100 MG TAB PO SCH ×2 (08:36→20:58)
[2022-12-27] MEDS: SERTRALINE HCL 50 MG TABLET PO SCH (08:36)
[2022-12-27] MEDS: SPIRONOLACTONE 25 MG TAB PO SCH (08:36)
[2022-12-27] MEDS: DOCUSATE SODIUM 100 MG CAP PO SCH ×2 (08:37→20:57)
[2022-12-27] MEDS: EMPAGLIFLOZIN 10 MG TAB PO SCH (08:37)
[2022-12-27] MEDS: DICLOFENAC SOD 1% GEL 100 GM TUBE EXT SCH ×4 (08:37→20:57)
[2022-12-27] MEDS: BACITRACIN OINT 15 GM TUBE EXT SCH ×2 (08:38→20:59)
[2022-12-27] MEDS: ENOXAPARIN INJ 40 MG/0.4 ML SYR SQ SCH ×2 (08:39→20:57)
[2022-12-27] MEDS: INSULIN, Rapid-Acting PUMP SCH ×4 (09:37→21:24)
--- NOTE | 2022-12-27 11:41 | Hospitalist Progress Note ---
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 Cont nonoperative management. TTWB allowed by Dr Contreras to RLE as of 11/29/22. Pt prefers total non-weightbearing to the RLE, however. Pain regimen: Cont tylenol 1gm TID PRN Cont oxy 10mg prn. Cont voltaren gel qid. (2) Adjustment disorder with depressed mood: Plan: Initially thought to be depressed due to PROLONGED institutionalized status (here, [facility], multiple SNF, etc), not being able to see her daughter, poor sleep, etc remains on wellbutrin 100mg qam + wellbutrin 200mg qhs along with topamax 100mg qam and 200mg qhs sertraline 25mg daily initiated on 11/28/22 ; increased the dose to 50mg daily on 12/11/22. could increase to 75mg if needed. previous TSH, B12, 25-OH vit D levels -- all wnl patient currently has a cheerful disposition and affect (3) Acute on chronic combined systolic and diastolic CHF (congestive heart failure): Plan: Cont torsemide 20 mg daily. Continue spironolactone, metoprolol, isosorbide mononitrate, ASA, atorvastatin. Last echo - 09/2022 with EF 45-50%. (4) Type 2 diabetes mellitus: Plan: On insulin pump with excellent readings (<200 all times) and no hypoglycemia. Most recent a1c = 7.2% in 10/2022. Cont jardiance. (5) Weakness: Plan: Cont PT/OT as tolerated. Treat underlying depression. Would benefit from rehab at SNF or other facility but refusing - will only entertain idea of going home with caregivers. She lives with her daughter Carmen who is disabled. (6) Hypothyroidism (acquired): Plan: Continue Levothyroxine. TSH 1.1 on 10/22/22. (7) GERD (gastroesophageal reflux disease): Plan: Continue protonix (8) Anxiety: Plan: cont zoloft 50mg daily (9) Morbid obesity with BMI of 60.0-69.9, adult: Plan: BMI 63-64 Adviced on lifestyle modification (10) Poor social situation: Plan: her prolonged hospital stay is due to disposition difficulties she was previously at [facility] - refuses to go back there she refuses to attend another SNF or go out of the [facility] for placement she wishes to go home with caregivers/HH by report has a large # of hours (90 by report) approved for in-home personal care; however, finding caregivers has been severely problematic social work has contacted between 20-30 home health agencies to try and secure help to no avail further, she needs a ramp built to be able to enter her home she also needs her entryway door widened to accommodate a large wheelchair social work continues to work on all of the above unfortunately no new leads on securing caregivers for her exhaustive search continues Per the legal department, no one could be forced to go to a group home (11) DVT prophylaxis: Plan: lovenox 40mg BID due to extreme morbid obesity Plan awaiting disposition Admission and Anticipated Discharge Date Admission Date: October 01, 2022 Subjective patient seen and examined, sitting up in the chair, no new complaints, says she slept well, appetite is good, awaiting for work to be done at her home Review of Systems Review of Systems: All systems reviewed are negative, apart from the ones contained in the history. Physical Exam Physical Exam: The patient is awake, alert and oriented 3, morbidly obese HEENT--PERRL, EOMI, mucous membranes and oropharynx mildly dry Neck--supple. No JVD. No bruits. Thyroid normal, trachea midline, no adenopathy. Heart--normal S1 and S2. No murmurs, rubs or gallops. Lungs--clear bilaterally, no respiratory distress, no accessory muscle use. Abdomen--normal bowel sounds and soft. Mild epigastric and left sided abdominal pain Extremities--no cyanosis or clubbing. No edema. Dermatologic--normal skin turgor, normal color, no abnormal lymph nodes, no rash. Neurologic--cranial nerves II through XII grossly intact. Rheumatologic--normal range of motion. Psychiatric--normal affect. Results & Data Results & Data ([facility]) Vital Signs (Past 12 Hours) Vital Signs Temp Pulse Pulse Resp BP Pulse Ox O2 Del Method 12/27/22 07:50 97.7 F 67 18 132/73 92 Room Air 12/27/22 07:25 84 18 95 Room Air 12/27/22 01:20 Room Air, Trach Collar PG Care Time/CCT Total # of Minutes Spent Total Time Spent with Patient: Total time spent is greater than 50% in coordination of care (as documented) at patient's floor/unit and/or counseling patient: Coding Level of Care Code 65867 SUB INP/OBS CARE 12/15MIN Diagnoses Fracture of distal end of right femur S72.401A Adjustment disorder with depressed mood F43.21 Acute on chronic combined systolic and diastolic CHF (congestive heart failure) I50.43 Type 2 diabetes mellitus E11.9 Weakness R53.1 Hypothyroidism (acquired) E03.9 GERD (gastroesophageal reflux disease) K21.9 Anxiety F41.9 Morbid obesity with BMI of 60.0-69.9, adult E66.01; Z68.44 Poor social situation Z65.9 DVT prophylaxis Z29.9 Time Spent (min) 25
[2022-12-27] MEDS: CALCIUM CITRATE 950 MG TAB PO SCH (13:13)
[2022-12-27] MEDS: buPROPion SR 100 MG TABCR PO SCH (20:57)
[2022-12-27] MEDS: ATORVASTATIN 40 MG TAB PO SCH (20:58)
[2022-12-27] MEDS: MELATONIN 3 MG TAB PO SCH (20:58)
[2022-12-27] MEDS: oxyCODONE HCL IR 5 MG TAB (IMMEDIATE RELEASE) PO PRN (21:05)
[2022-12-28] MEDS: LEVOTHYROXINE SODIUM 200 MCG TABLET PO SCH (05:58)
[2022-12-28] MEDS: PANTOprazole 40 MG TAB PO SCH (05:58)
[2022-12-28] MEDS: TORSEMIDE 20 MG TAB PO SCH (05:59)
[2022-12-28] MEDS: LEVOTHYROXINE SODIUM 25 MCG TABLET PO SCH (06:10)
[2022-12-28] MEDS: ALBUT/IPRATROP 3MG/0.5MG NEB 3 ML VIAL NEB PRN ×2 (08:09→15:58)
[2022-12-28] MEDS: MAGNESIUM OXIDE 400 MG TAB PO SCH (09:15)
[2022-12-28] MEDS: FOLIC ACID 1 MG TAB PO SCH (09:16)
[2022-12-28] MEDS: ENOXAPARIN INJ 40 MG/0.4 ML SYR SQ SCH ×2 (09:16→20:37)
[2022-12-28] MEDS: TOPIRAMATE 100 MG TAB PO SCH ×2 (09:16→20:38)
[2022-12-28] MEDS: SPIRONOLACTONE 25 MG TAB PO SCH (09:17)
[2022-12-28] MEDS: SERTRALINE HCL 50 MG TABLET PO SCH (09:17)
[2022-12-28] MEDS: DOCUSATE SODIUM 100 MG CAP PO SCH ×2 (09:17→20:38)
[2022-12-28] MEDS: EMPAGLIFLOZIN 10 MG TAB PO SCH (09:17)
[2022-12-28] MEDS: CHOLECALCIFEROL 1,000 UNITS 25 MCG TAB PO SCH (09:17)
[2022-12-28] MEDS: METOPROLOL TARTRATE 25 MG TAB PO SCH ×2 (09:17→20:37)
[2022-12-28] MEDS: ISOSORBIDE MONO EXTENDED REL 30 MG TABCR PO SCH (09:18)
[2022-12-28] MEDS: BACITRACIN OINT 15 GM TUBE EXT SCH ×2 (09:18→20:39)
[2022-12-28] MEDS: INSULIN, Rapid-Acting PUMP SCH ×4 (09:19→20:49)
[2022-12-28 10:12] LABS: Hematocrit (blood only) 39.6 % (37.0-47.0); Mean Corpuscular Hemoglobin 27.3 pg (25.0-34.0); Mean Corpuscular Hgb Conc 30.3 g/dL (32.0-36.0); Mean Corpuscular Volume 90.2 fL (80.0-100.0); Mean Platelet Volume 9.3 fL (9.4-12.4); Platelet Count 281 K/uL (130-400); RDW Coefficient of Variation 15.3 % (11.5-14.5); RDW Standard Deviation 50.9 fL (36.4-46.3); Red Blood Count 4.39 M/uL (4.20-5.40); White Blood Count 8.75 K/ul (4.8-10.8)
[2022-12-28 11:07] LABS: BUN Creatinine Ratio 22.3 (10-20); Creatinine Clr Calc Pharmacy 49.9 ml/min; Est GFR (African American) 36.8 ml/min; Est GFR (Non-African American) 31.8 ml/min; Potassium 3.7 mmol/L (3.5-5.1)
[2022-12-28] MEDS: CALCIUM CITRATE 950 MG TAB PO SCH (12:46)
--- NOTE | 2022-12-28 13:09 | Hospitalist Progress Note ---
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 Cont nonoperative management. TTWB allowed by Dr Contreras to RLE as of 11/29/22. Pt prefers total non-weightbearing to the RLE, however. Pain regimen: Cont tylenol 1gm TID PRN Cont oxy 10mg prn. Cont voltaren gel qid. (2) Adjustment disorder with depressed mood: Plan: Initially thought to be depressed due to PROLONGED institutionalized status (here, [facility], multiple SNF, etc), not being able to see her daughter, poor sleep, etc remains on wellbutrin 100mg qam + wellbutrin 200mg qhs along with topamax 100mg qam and 200mg qhs sertraline 25mg daily initiated on 11/28/22 ; increased the dose to 50mg daily on 12/11/22. could increase to 75mg if needed. previous TSH, B12, 25-OH vit D levels -- all wnl patient currently has a cheerful disposition and affect (3) Acute on chronic combined systolic and diastolic CHF (congestive heart failure): Plan: Cont torsemide 20 mg daily. Continue spironolactone, metoprolol, isosorbide mononitrate, ASA, atorvastatin. Last echo - 09/2022 with EF 45-50%. (4) Type 2 diabetes mellitus: Plan: On insulin pump with excellent readings (<200 all times) and no hypoglycemia. Most recent a1c = 7.2% in 10/2022. Cont jardiance. (5) Weakness: Plan: Cont PT/OT as tolerated. Treat underlying depression. Would benefit from rehab at SNF or other facility but refusing - will only entertain idea of going home with caregivers. She lives with her daughter Carmen who is disabled. (6) Hypothyroidism (acquired): Plan: Continue Levothyroxine. TSH 1.1 on 10/22/22. (7) GERD (gastroesophageal reflux disease): Plan: Continue protonix (8) Anxiety: Plan: cont zoloft 50mg daily (9) Morbid obesity with BMI of 60.0-69.9, adult: Plan: BMI 63-64 Adviced on lifestyle modification (10) Poor social situation: Plan: her prolonged hospital stay is due to disposition difficulties she was previously at [facility] - refuses to go back there she refuses to attend another SNF or go out of the [facility] for placement she wishes to go home with caregivers/HH by report has a large # of hours (90 by report) approved for in-home personal care; however, finding caregivers has been severely problematic social work has contacted between 20-30 home health agencies to try and secure help to no avail further, she needs a ramp built to be able to enter her home she also needs her entryway door widened to accommodate a large wheelchair social work continues to work on all of the above unfortunately no new leads on securing caregivers for her exhaustive search continues Per the legal department, no one could be forced to go to a senior living (11) DVT prophylaxis: Plan: lovenox 40mg BID due to extreme morbid obesity (12) CKD (chronic kidney disease): Plan: CKD stage 3, stable Avoid nephrotoxics Plan awaiting disposition Admission and Anticipated Discharge Date Admission Date: October 01, 2022 Subjective patient seen and examined, sitting up in the chair, no new complaints, says she slept well, appetite is good, awaiting for work to be done at her home Review of Systems Review of Systems: All systems reviewed are negative, apart from the ones contained in the history. Physical Exam Physical Exam: The patient is awake, alert and oriented 3, morbidly obese HEENT--PERRL, EOMI, mucous membranes and oropharynx mildly dry Neck--supple. No JVD. No bruits. Thyroid normal, trachea midline, no adenopathy . Heart--normal S1 and S2. No murmurs, rubs or gallops. Lungs--clear bilaterally, no respiratory distress, no accessory muscle use. Abdomen--normal bowel sounds and soft. Mild epigastric and left sided abdominal pain Extremities--no cyanosis or clubbing. No edema. Dermatologic--normal skin turgor, normal color, no abnormal lymph nodes, no rash. Neurologic--cranial nerves II through XII grossly intact. Rheumatologic--normal range of motion. Psychiatric--normal affect. Results & Data Results & Data ([facility]) Vital Signs (Past 12 Hours) Vital Signs Temp Pulse Resp BP Pulse Ox O2 Del Method 12/28/22 08:09 64 18 96 Room Air 12/28/22 07:47 97.9 F 60 20 125/74 95 Room Air PG Care Time/CCT Total # of Minutes Spent Total Time Spent with Patient: Total time spent is greater than 50% in coordination of care (as documented) at patient's floor/unit and/or counseling patient: Coding Level of Care Code 61181 SUB INP/OBS CARE 2/35MIN Diagnoses Fracture of distal end of right femur S72.401A Adjustment disorder with depressed mood F43.21 Acute on chronic combined systolic and diastolic CHF (congestive heart failure) I50.43 Type 2 diabetes mellitus E11.9 Weakness R53.1 Hypothyroidism (acquired) E03.9 GERD (gastroesophageal reflux disease) K21.9 Anxiety F41.9 Morbid obesity with BMI of 60.0-69.9, adult E66.01; Z68.44 Poor social situation Z65.9 DVT prophylaxis Z29.9 CKD (chronic kidney disease) N18.9 Time Spent (min) 35
[2022-12-28] MEDS: buPROPion SR 100 MG TABCR PO SCH (20:36)
[2022-12-28] MEDS: ATORVASTATIN 40 MG TAB PO SCH (20:38)
[2022-12-28] MEDS: MELATONIN 3 MG TAB PO SCH (20:38)
[2022-12-28] MEDS: oxyCODONE HCL IR 5 MG TAB (IMMEDIATE RELEASE) PO PRN (20:42)
[2022-12-29] MEDS: LEVOTHYROXINE SODIUM 25 MCG TABLET PO SCH (06:07)
[2022-12-29] MEDS: LEVOTHYROXINE SODIUM 200 MCG TABLET PO SCH (06:07)
[2022-12-29] MEDS: PANTOprazole 40 MG TAB PO SCH (06:07)
[2022-12-29] MEDS: TORSEMIDE 20 MG TAB PO SCH (06:07)
[2022-12-29] MEDS: ALBUT/IPRATROP 3MG/0.5MG NEB 3 ML VIAL NEB PRN ×2 (07:37→14:47)
[2022-12-29] MEDS: DICLOFENAC SOD 1% GEL 100 GM TUBE EXT SCH ×7 (08:56→22:05)
[2022-12-29] MEDS: METOPROLOL TARTRATE 25 MG TAB PO SCH ×2 (08:57→21:23)
[2022-12-29] MEDS: DOCUSATE SODIUM 100 MG CAP PO SCH ×2 (08:57→21:25)
[2022-12-29] MEDS: EMPAGLIFLOZIN 10 MG TAB PO SCH (08:58)
[2022-12-29] MEDS: MAGNESIUM OXIDE 400 MG TAB PO SCH (08:58)
[2022-12-29] MEDS: FOLIC ACID 1 MG TAB PO SCH (08:59)
[2022-12-29] MEDS: SERTRALINE HCL 50 MG TABLET PO SCH (08:59)
[2022-12-29] MEDS: TOPIRAMATE 100 MG TAB PO SCH ×2 (09:00→21:26)
[2022-12-29] MEDS: ISOSORBIDE MONO EXTENDED REL 30 MG TABCR PO SCH (09:00)
[2022-12-29] MEDS: SPIRONOLACTONE 25 MG TAB PO SCH (09:00)
[2022-12-29] MEDS: CHOLECALCIFEROL 1,000 UNITS 25 MCG TAB PO SCH (09:00)
[2022-12-29] MEDS: AZITHROMYCIN 250 MG TAB PO SCH (09:01)
[2022-12-29] MEDS: BACITRACIN OINT 15 GM TUBE EXT SCH ×2 (09:01→21:27)
[2022-12-29] MEDS: ENOXAPARIN INJ 40 MG/0.4 ML SYR SQ SCH (09:02)
[2022-12-29] MEDS: INSULIN, Rapid-Acting PUMP SCH ×4 (10:04→21:30)
[2022-12-29] MEDS: CALCIUM CITRATE 950 MG TAB PO SCH (12:53)
[2022-12-29] MEDS: oxyCODONE HCL IR 5 MG TAB (IMMEDIATE RELEASE) PO PRN (13:31)
--- NOTE | 2022-12-29 15:00 | Hospitalist Progress Note ---
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 Cont nonoperative management. TTWB allowed by Dr Contreras to RLE as of 11/29/22. Pt prefers total non-weightbearing to the RLE, however. Pain regimen: Cont tylenol 1gm TID PRN Cont oxy 10mg prn. Cont voltaren gel qid. (2) Adjustment disorder with depressed mood: Plan: Initially thought to be depressed due to PROLONGED institutionalized status (here, [facility], multiple SNF, etc), not being able to see her daughter, poor sleep, etc remains on wellbutrin 100mg qam + wellbutrin 200mg qhs along with topamax 100mg qam and 200mg qhs sertraline 25mg daily initiated on 11/28/22 ; increased the dose to 50mg daily on 12/11/22. could increase to 75mg if needed. previous TSH, B12, 25-OH vit D levels -- all wnl patient currently has a cheerful disposition and affect (3) Acute on chronic combined systolic and diastolic CHF (congestive heart failure): Plan: Cont torsemide 20 mg daily. Continue spironolactone, metoprolol, isosorbide mononitrate, ASA, atorvastatin. Last echo - 09/2022 with EF 45-50%. (4) Type 2 diabetes mellitus: Plan: On insulin pump with excellent readings (<200 all times) and no hypoglycemia. Most recent a1c = 7.2% in 10/2022. Cont jardiance. (5) Weakness: Plan: Cont PT/OT as tolerated. Treat underlying depression. Would benefit from rehab at SNF or other facility but refusing - will only entertain idea of going home with caregivers. She lives with her daughter Carmen who is disabled, but has her own care givers (6) Hypothyroidism (acquired): Plan: Continue Levothyroxine. TSH 1.1 on 10/22/22. (7) GERD (gastroesophageal reflux disease): Plan: Continue protonix (8) Anxiety: Plan: cont zoloft 50mg daily (9) Morbid obesity with BMI of 60.0-69.9, adult: Plan: BMI 63-64 Adviced on lifestyle modification (10) Poor social situation: Plan: her prolonged hospital stay is due to disposition difficulties she was previously at [facility] - refuses to go back there she refuses to attend another SNF or go out of the [place] area for placement she wishes to go home with caregivers/HH by report has a large # of hours (90 by report) approved for in-home personal care; however, finding caregivers has been severely problematic social work has contacted between 20-30 home health agencies to try and secure help to no avail further, she needs a ramp built to be able to enter her home she also needs her entryway door widened to accommodate a large wheelchair social work continues to work on all of the above unfortunately no new leads on securing caregivers for her exhaustive search continues Per the legal department, no one could be forced to go to a shelter (11) DVT prophylaxis: Plan: lovenox 40mg BID due to extreme morbid obesity (12) CKD (chronic kidney disease): Plan: CKD stage 3, stable Avoid nephrotoxics Plan awaiting disposition Admission and Anticipated Discharge Date Admission Date: October 01, 2022 Subjective patient seen and examined, sitting up in the chair, no new complaints, says she slept well, appetite is good, awaiting for work to be done at her home Review of Systems Review of Systems: All systems reviewed are negative, apart from the ones contained in the history. Physical Exam Physical Exam: The patient is awake, alert and oriented 3, morbidly obese HEENT--PERRL, EOMI, mucous membranes and oropharynx mildly dry Neck--supple. No JVD. No bruits. Thyroid normal, trachea midline, no adenopathy. Heart--normal S1 and S2. No murmurs, rubs or gallops. Lungs--clear bilaterally, no respiratory distress, no accessory muscle use. Abdomen--normal bowel sounds and soft. Mild epigastric and left sided abdominal pain Extremities--no cyanosis or clubbing. No edema. Dermatologic--normal skin turgor, normal color, no abnormal lymph nodes, no rash. Neurologic--cranial nerves II through XII grossly intact. Rheumatologic--normal range of motion. Psychiatric--normal affect. Results & Data Results & Data ([facility]) Vital Signs (Past 12 Hours) Vital Signs Temp Pulse Resp BP Pulse Ox O2 Del Method O2 Flow Rate 02/08/23 14:48 63 18 96 Room Air 12/29/22 07:38 66 18 95 Room Air 12/29/22 07:32 Trach Collar 12/29/22 07:27 98.2 F 66 20 147/69 H 95 Room Air 12/29/22 03:06 72 20 96 Trach Collar 6 FiO2 12/29/22 14:48 12/29/22 07:38 12/29/22 07:32 12/29/22 07:27 12/29/22 03:06 28 PG Care Time/CCT Total # of Minutes Spent Total Time Spent with Patient: Total time spent is greater than 50% in coordination of care (as documented) at patient's floor/unit and/or counseling patient: Coding Level of Care Code 44450 SUB INP/OBS CARE 2/35MIN Diagnoses Fracture of distal end of right femur S72.401A Adjustment disorder with depressed mood F43.21 Acute on chronic combined systolic and diastolic CHF (congestive heart failure) I50.43 Type 2 diabetes mellitus E11.9 Weakness R53.1 Hypothyroidism (acquired) E03.9 GERD (gastroesophageal reflux disease) K21.9 Anxiety F41.9 Morbid obesity with BMI of 60.0-69.9, adult E66.01; Z68.44 Poor social situation Z65.9 DVT prophylaxis Z29.9 CKD (chronic kidney disease) N18.9 Time Spent (min) 35
[2022-12-29] MEDS: buPROPion SR 100 MG TABCR PO SCH (21:25)
[2022-12-29] MEDS: ATORVASTATIN 40 MG TAB PO SCH (21:25)
[2022-12-29] MEDS: MELATONIN 3 MG TAB PO SCH (21:26)
[2022-12-30] MEDS: LEVOTHYROXINE SODIUM 200 MCG TABLET PO SCH (06:03)
[2022-12-30] MEDS: PANTOprazole 40 MG TAB PO SCH (06:03)
[2022-12-30] MEDS: TORSEMIDE 20 MG TAB PO SCH (06:03)
[2022-12-30] MEDS: LEVOTHYROXINE SODIUM 25 MCG TABLET PO SCH (06:04)
[2022-12-30] MEDS: ALBUT/IPRATROP 3MG/0.5MG NEB 3 ML VIAL NEB PRN ×2 (08:00→16:03)
[2022-12-30] MEDS: CHOLECALCIFEROL 1,000 UNITS 25 MCG TAB PO SCH (09:32)
[2022-12-30] MEDS: DOCUSATE SODIUM 100 MG CAP PO SCH ×2 (09:32→20:53)
[2022-12-30] MEDS: METOPROLOL TARTRATE 25 MG TAB PO SCH ×2 (09:33→20:51)
[2022-12-30] MEDS: MAGNESIUM OXIDE 400 MG TAB PO SCH (09:33)
[2022-12-30] MEDS: ISOSORBIDE MONO EXTENDED REL 30 MG TABCR PO SCH (09:33)
[2022-12-30] MEDS: EMPAGLIFLOZIN 10 MG TAB PO SCH (09:33)
[2022-12-30] MEDS: FOLIC ACID 1 MG TAB PO SCH (09:33)
[2022-12-30] MEDS: SERTRALINE HCL 50 MG TABLET PO SCH (09:33)
[2022-12-30] MEDS: SPIRONOLACTONE 25 MG TAB PO SCH (09:33)
[2022-12-30] MEDS: TOPIRAMATE 100 MG TAB PO SCH ×2 (09:34→20:52)
[2022-12-30] MEDS: DICLOFENAC SOD 1% GEL 100 GM TUBE EXT SCH ×8 (09:36→20:57)
[2022-12-30] MEDS: BACITRACIN OINT 15 GM TUBE EXT SCH ×2 (09:37→20:57)
[2022-12-30] MEDS: INSULIN, Rapid-Acting PUMP SCH ×4 (10:58→20:53)
[2022-12-30] MEDS: CALCIUM CITRATE 950 MG TAB PO SCH (11:49)
[2022-12-30] MEDS: oxyCODONE HCL IR 5 MG TAB (IMMEDIATE RELEASE) PO PRN ×2 (11:58→20:55)
--- NOTE | 2022-12-30 12:04 | Hospitalist Progress Note ---
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 Cont nonoperative management. TTWB allowed by Dr Contreras to RLE as of 11/29/22. Pt prefers total non-weightbearing to the RLE, however. Pain regimen: Cont tylenol 1gm TID PRN Cont oxy 10mg prn. Cont voltaren gel qid. (2) Adjustment disorder with depressed mood: Plan: Initially thought to be depressed due to PROLONGED institutionalized status (here, [facility], multiple SNF, etc), not being able to see her daughter, poor sleep, etc remains on wellbutrin 100mg qam + wellbutrin 200mg qhs along with topamax 100mg qam and 200mg qhs sertraline 25mg daily initiated on 11/28/22 ; increased the dose to 50mg daily on 12/11/22. could increase to 75mg if needed. previous TSH, B12, 25-OH vit D levels -- all wnl patient currently has a cheerful disposition and affect (3) Acute on chronic combined systolic and diastolic CHF (congestive heart failure): Plan: Cont torsemide 20 mg daily. Continue spironolactone, metoprolol, isosorbide mononitrate, ASA, atorvastatin. Last echo - 09/2022 with EF 45-50%. (4) Type 2 diabetes mellitus: Plan: On insulin pump with excellent readings (<200 all times) and no hypoglycemia. Most recent a1c = 7.2% in 10/2022. Cont jardiance. (5) Weakness: Plan: Cont PT/OT as tolerated. Treat underlying depression. Would benefit from rehab at SNF or other facility but refusing - will only entertain idea of going home with caregivers. She lives with her daughter Carmen who is disabled, but has her own care givers (6) Hypothyroidism (acquired): Plan: Continue Levothyroxine. TSH 1.1 on 10/22/22. (7) GERD (gastroesophageal reflux disease): Plan: Continue protonix (8) Anxiety: Plan: cont zoloft 50mg daily (9) Morbid obesity with BMI of 60.0-69.9, adult: Plan: BMI 63-64 Adviced on lifestyle modification (10) Poor social situation: Plan: her prolonged hospital stay is due to disposition difficulties she was previously at [facility] - refuses to go back there she refuses to attend another SNF or go out of the [place] area for placement she wishes to go home with caregivers/HH by report has a large # of hours (90 by report) approved for in-home personal care; however, finding caregivers has been severely problematic social work has contacted between 20-30 home health agencies to try and secure help to no avail further, she needs a ramp built to be able to enter her home she also needs her entryway door widened to accommodate a large wheelchair social work continues to work on all of the above unfortunately no new leads on securing caregivers for her exhaustive search continues Per the legal department, no one could be forced to go to a care home (11) DVT prophylaxis: Plan: lovenox 40mg BID due to extreme morbid obesity (12) CKD (chronic kidney disease): Plan: CKD stage 3, stable Avoid nephrotoxics Plan awaiting disposition Admission and Anticipated Discharge Date Admission Date: October 01, 2022 Subjective patient seen and examined, sitting up in the chair, no new complaints, says she slept well, appetite is good, awaiting for work to be done at her home, vital signs are stable Review of Systems Review of Systems: All systems reviewed are negative, apart from the ones contained in the history. Physical Exam Physical Exam: The patient is awake, alert and oriented 3, morbidly obese HEENT--PERRL, EOMI, mucous membranes and oropharynx mildly dry Neck--supple. No JVD. No bruits. Thyroid normal, trachea midline, no adenopathy. Heart--normal S1 and S2. No murmurs, rubs or gallops. Lungs--clear bilaterally, no respiratory distress, no accessory muscle use. Abdomen--normal bowel sounds and soft. Mild epigastric and left sided abdominal pain Extremities--no cyanosis or clubbing. No edema. Dermatologic--normal skin turgor, normal color, no abnormal lymph nodes, no rash. Neurologic--cranial nerves II through XII grossly intact. Rheumatologic--normal range of motion. Psychiatric--normal affect. Results & Data Results & Data ([facility]) Vital Signs (Past 12 Hours) Vital Signs Temp Pulse Resp BP Pulse Ox O2 Del Method 12/30/22 11:19 Room Air, Trach Collar 12/30/22 08:02 63 18 92 Trach Collar 12/30/22 07:31 97.7 F 66 20 125/73 94 Room Air PG Care Time/CCT Total # of Minutes Spent Total Time Spent with Patient: Total time spent is greater than 50% in coordination of care (as documented) at patient's floor/unit and/or counseling patient: Coding Level of Care Code 51025 SUB INP/OBS CARE 2/35MIN Diagnoses Fracture of distal end of right femur S72.401A Adjustment disorder with depressed mood F43.21 Acute on chronic combined systolic and diastolic CHF (congestive heart failure) I50.43 Type 2 diabetes mellitus E11.9 Weakness R53.1 Hypothyroidism (acquired) E03.9 GERD (gastroesophageal reflux disease) K21.9 Anxiety F41.9 Morbid obesity with BMI of 60.0-69.9, adult E66.01; Z68.44 Poor social situation Z65.9 DVT prophylaxis Z29.9 CKD (chronic kidney disease) N18.9 Time Spent (min) 35
[2022-12-30] MEDS: MELATONIN 3 MG TAB PO SCH (20:51)
[2022-12-30] MEDS: ATORVASTATIN 40 MG TAB PO SCH (20:52)
[2022-12-30] MEDS: buPROPion SR 100 MG TABCR PO SCH (20:52)
[2022-12-30] MEDS ORDERED: ALUMINUM/MAGNESIUM/SIMETH (MAALOX MAX) 30 ML UDC PO STA (22:57)
[2022-12-31] MEDS: LEVOTHYROXINE SODIUM 25 MCG TABLET PO SCH (06:24)
[2022-12-31] MEDS: PANTOprazole 40 MG TAB PO SCH (06:24)
[2022-12-31] MEDS: TORSEMIDE 20 MG TAB PO SCH (06:24)
[2022-12-31] MEDS: LEVOTHYROXINE SODIUM 200 MCG TABLET PO SCH (06:24)
[2022-12-31] MEDS: ALBUT/IPRATROP 3MG/0.5MG NEB 3 ML VIAL NEB PRN ×2 (07:09→14:40)
[2022-12-31] MEDS: DOCUSATE SODIUM 100 MG CAP PO SCH ×2 (09:07→20:26)
[2022-12-31] MEDS: CHOLECALCIFEROL 1,000 UNITS 25 MCG TAB PO SCH (09:07)
[2022-12-31] MEDS: EMPAGLIFLOZIN 10 MG TAB PO SCH (09:07)
[2022-12-31] MEDS: MAGNESIUM OXIDE 400 MG TAB PO SCH (09:07)
[2022-12-31] MEDS: METOPROLOL TARTRATE 25 MG TAB PO SCH ×2 (09:07→20:27)
[2022-12-31] MEDS: SPIRONOLACTONE 25 MG TAB PO SCH (09:07)
[2022-12-31] MEDS: ISOSORBIDE MONO EXTENDED REL 30 MG TABCR PO SCH (09:07)
[2022-12-31] MEDS: SERTRALINE HCL 50 MG TABLET PO SCH (09:07)
[2022-12-31] MEDS: FOLIC ACID 1 MG TAB PO SCH (09:07)
[2022-12-31] MEDS: TOPIRAMATE 100 MG TAB PO SCH ×2 (09:07→20:26)
[2022-12-31] MEDS: BACITRACIN OINT 15 GM TUBE EXT SCH ×2 (09:08→20:31)
[2022-12-31] MEDS: DICLOFENAC SOD 1% GEL 100 GM TUBE EXT SCH ×8 (09:08→20:31)
[2022-12-31] MEDS: INSULIN, Rapid-Acting PUMP SCH ×4 (09:09→20:30)
[2022-12-31] MEDS: CALCIUM CITRATE 950 MG TAB PO SCH (13:11)
--- NOTE | 2022-12-31 14:25 | Hospitalist Progress Note ---
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 Cont nonoperative management. TTWB allowed by Dr Contreras to RLE as of 11/29/22. Pt prefers total non-weightbearing to the RLE, however. Pain is under good control Pain regimen: Cont tylenol 1gm TID PRN Cont oxy 10mg prn. Cont voltaren gel qid. (2) Adjustment disorder with depressed mood: Plan: Initially thought to be depressed due to PROLONGED institutionalized status (here, [facility], multiple SNF, etc), not being able to see her daughter, poor sleep, etc remains on wellbutrin 100mg qam + wellbutrin 200mg qhs along with topamax 100mg qam and 200mg qhs sertraline 25mg daily initiated on 11/28/22 ; increased the dose to 50mg daily on 12/11/22. could increase to 75mg if needed. previous TSH, B12, 25-OH vit D levels -- all wnl patient currently has a cheerful disposition and affect (3) Acute on chronic combined systolic and diastolic CHF (congestive heart failure): Plan: Cont torsemide 20 mg daily. Continue spironolactone, metoprolol, isosorbide mononitrate, ASA, atorvastatin. Last echo - 09/2022 with EF 45-50%. (4) Type 2 diabetes mellitus: Plan: On insulin pump with excellent readings (<200 all times) and no hypoglycemia. Most recent a1c = 7.2% in 10/2022. Cont jardiance. (5) Weakness: Plan: Cont PT/OT as tolerated. Treat underlying depression. Would benefit from rehab at SNF or other facility but refusing - will only entertain idea of going home with caregivers. She lives with her daughter Carmen who is disabled, but has her own care givers (6) Hypothyroidism (acquired): Plan: Continue Levothyroxine. TSH 1.1 on 10/22/22. (7) GERD (gastroesophageal reflux disease): Plan: Continue protonix (8) Anxiety: Plan: cont zoloft 50mg daily (9) Morbid obesity with BMI of 60.0-69.9, adult: Plan: BMI 63-64 Adviced on lifestyle modification (10) Poor social situation: Plan: her prolonged hospital stay is due to disposition difficulties she was previously at [facility] - refuses to go back there she refuses to attend another SNF or go out of the [facility] for placement she wishes to go home with caregivers/HH by report has a large # of hours (90 by report) approved for in-home personal care; however, finding caregivers has been severely problematic social work has contacted between 20-30 home health agencies to try and secure help to no avail further, she needs a ramp built to be able to enter her home she also needs her entryway door widened to accommodate a large wheelchair social work continues to work on all of the above unfortunately no new leads on securing caregivers for her exhaustive search continues Per the legal department, no one could be forced to go to a custodial (11) DVT prophylaxis: Plan: lovenox 40mg BID due to extreme morbid obesity (12) CKD (chronic kidney disease): Plan: CKD stage 3, stable Avoid nephrotoxics Plan awaiting disposition Admission and Anticipated Discharge Date Admission Date: October 01, 2022 Subjective patient seen and examined, sitting up in the chair, no new complaints, says she slept well, appetite is good, awaiting for work to be done at her home, vital signs are stable Review of Systems Review of Systems: All systems reviewed are negative, apart from the ones contained in the history. Physical Exam Physical Exam: The patient is awake, alert and oriented 3, morbidly obese HEENT--PERRL, EOMI, mucous membranes and oropharynx mildly dry Neck--supple. No JVD. No bruits. Thyroid normal, trachea midline, no adenopathy. Heart--normal S1 and S2. No murmurs, rubs or gallops. Lungs--clear bilaterally, no respiratory distress, no accessory muscle use. Abdomen--normal bowel sounds and soft. Mild epigastric and left sided abdominal pain Extremities--no cyanosis or clubbing. No edema. Dermatologic--normal skin turgor, normal color, no abnormal lymph nodes, no rash. Neurologic--cranial nerves II through XII grossly intact. Rheumatologic--normal range of motion. Psychiatric--normal affect. Results & Data Results & Data ([facility]) Vital Signs (Past 12 Hours) Vital Signs Temp Pulse Pulse Resp BP Pulse Ox O2 Del Method 12/31/22 11:44 Room Air 12/31/22 07:09 70 16 97 Room Air 12/31/22 07:06 97.7 F 60 18 142/82 H 97 Room Air PG Care Time/CCT Total # of Minutes Spent Total Time Spent with Patient: Total time spent is greater than 50% in coordination of care (as documented) at patient's floor/unit and/or counseling patient: Coding Level of Care Code 18961 SUB INP/OBS CARE 2/35MIN Diagnoses Fracture of distal end of right femur S72.401A Adjustment disorder with depressed mood F43.21 Acute on chronic combined systolic and diastolic CHF (congestive heart failure) I50.43 Type 2 diabetes mellitus E11.9 Weakness R53.1 Hypothyroidism (acquired) E03.9 GERD (gastroesophageal reflux disease) K21.9 Anxiety F41.9 Morbid obesity with BMI of 60.0-69.9, adult E66.01; Z68.44 Poor social situation Z65.9 DVT prophylaxis Z29.9 CKD (chronic kidney disease) N18.9 Time Spent (min) 35
[2022-12-31] MEDS: MELATONIN 3 MG TAB PO SCH (20:25)
[2022-12-31] MEDS: ATORVASTATIN 40 MG TAB PO SCH (20:26)
[2022-12-31] MEDS: buPROPion SR 100 MG TABCR PO SCH (20:27)
[2023-01-01] MEDS: LEVOTHYROXINE SODIUM 25 MCG TABLET PO SCH (06:10)
[2023-01-01] MEDS: LEVOTHYROXINE SODIUM 200 MCG TABLET PO SCH (06:10)
[2023-01-01] MEDS: PANTOprazole 40 MG TAB PO SCH (06:10)
[2023-01-01] MEDS: TORSEMIDE 20 MG TAB PO SCH (06:11)
[2023-01-01] MEDS: ALBUT/IPRATROP 3MG/0.5MG NEB 3 ML VIAL NEB PRN ×2 (07:58→14:59)
[2023-01-01] MEDS: INSULIN, Rapid-Acting PUMP SCH ×4 (09:44→21:01)
[2023-01-01] MEDS: DICLOFENAC SOD 1% GEL 100 GM TUBE EXT SCH ×6 (09:44→20:58)
[2023-01-01] MEDS: BACITRACIN OINT 15 GM TUBE EXT SCH ×2 (09:45→20:55)
[2023-01-01] MEDS: METOPROLOL TARTRATE 25 MG TAB PO SCH ×2 (09:46→21:01)
[2023-01-01] MEDS: DOCUSATE SODIUM 100 MG CAP PO SCH ×2 (09:47→20:58)
[2023-01-01] MEDS: FOLIC ACID 1 MG TAB PO SCH (09:47)
[2023-01-01] MEDS: MAGNESIUM OXIDE 400 MG TAB PO SCH (09:48)
[2023-01-01] MEDS: EMPAGLIFLOZIN 10 MG TAB PO SCH (09:48)
[2023-01-01] MEDS: TOPIRAMATE 100 MG TAB PO SCH ×2 (09:49→21:02)
[2023-01-01] MEDS: SPIRONOLACTONE 25 MG TAB PO SCH (09:49)
[2023-01-01] MEDS: SERTRALINE HCL 50 MG TABLET PO SCH (09:49)
[2023-01-01] MEDS: ISOSORBIDE MONO EXTENDED REL 30 MG TABCR PO SCH (09:50)
[2023-01-01] MEDS: oxyCODONE HCL IR 5 MG TAB (IMMEDIATE RELEASE) PO PRN (11:11)
[2023-01-01] MEDS: CALCIUM CITRATE 950 MG TAB PO SCH (11:12)
--- NOTE | 2023-01-01 13:52 | Hospitalist Progress Note ---
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 Cont nonoperative management. TTWB allowed by Dr Contreras to RLE as of 11/29/22. Pt prefers total non-weightbearing to the RLE, however. Pain is under good control Pain regimen: Cont tylenol 1gm TID PRN Cont oxy 10mg prn. Cont voltaren gel qid. (2) Adjustment disorder with depressed mood: Plan: Initially thought to be depressed due to PROLONGED institutionalized status (here, [facility], multiple SNF, etc), not being able to see her daughter, poor sleep, etc remains on wellbutrin 100mg qam + wellbutrin 200mg qhs along with topamax 100mg qam and 200mg qhs sertraline 25mg daily initiated on 11/28/22 ; increased the dose to 50mg daily on 12/11/22. could increase to 75mg if needed. previous TSH, B12, 25-OH vit D levels -- all wnl patient currently has a cheerful disposition and affect (3) Acute on chronic combined systolic and diastolic CHF (congestive heart failure): Plan: Cont torsemide 20 mg daily. Continue spironolactone, metoprolol, isosorbide mononitrate, ASA, atorvastatin. Last echo - 09/2022 with EF 45-50%. (4) Type 2 diabetes mellitus: Plan: On insulin pump with excellent readings (<200 all times) and no hypoglycemia. Most recent a1c = 7.2% in 10/2022. Cont jardiance. (5) Weakness: Plan: Cont PT/OT as tolerated. Treat underlying depression. Would benefit from rehab at SNF or other facility but refusing - will only entertain idea of going home with caregivers. She lives with her daughter Carmen who is disabled, but has her own care givers (6) Hypothyroidism (acquired): Plan: Continue Levothyroxine. TSH 1.1 on 10/22/22. (7) GERD (gastroesophageal reflux disease): Plan: Continue protonix (8) Anxiety: Plan: cont zoloft 50mg daily (9) Morbid obesity with BMI of 60.0-69.9, adult: Plan: BMI 63-64 Adviced on lifestyle modification (10) Poor social situation: Plan: her prolonged hospital stay is due to disposition difficulties she was previously at [facility] - refuses to go back there she refuses to attend another SNF or go out of the [facility] for placement she wishes to go home with caregivers/HH by report has a large # of hours (90 by report) approved for in-home personal care; however, finding caregivers has been severely problematic social work has contacted between 20-30 home health agencies to try and secure help to no avail further, she needs a ramp built to be able to enter her home she also needs her entryway door widened to accommodate a large wheelchair social work continues to work on all of the above unfortunately no new leads on securing caregivers for her exhaustive search continues Per the legal department, no one could be forced to go to a custodial (11) DVT prophylaxis: Plan: lovenox 40mg BID due to extreme morbid obesity (12) CKD (chronic kidney disease): Plan: CKD stage 3, stable Avoid nephrotoxics Plan awaiting disposition Admission and Anticipated Discharge Date Admission Date: October 01, 2022 Subjective patient seen and examined, sitting up in the chair, no new complaints, says she slept well, appetite is good, awaiting for work to be done at her home, vital signs are stable Review of Systems Review of Systems: All systems reviewed are negative, apart from the ones contained in the history. Physical Exam Physical Exam: The patient is awake, alert and oriented 3, morbidly obese HEENT--PERRL, EOMI, mucous membranes and oropharynx mildly dry Neck--supple. No JVD. No bruits. Thyroid normal, trachea midline, no adenopathy. Heart--normal S1 and S2. No murmurs, rubs or gallops. Lungs--clear bilaterally, no respiratory distress, no accessory muscle use. Abdomen--normal bowel sounds and soft. Mild epigastric and left sided abdominal pain Extremities--no cyanosis or clubbing. No edema. Dermatologic--normal skin turgor, normal color, no abnormal lymph nodes, no rash. Neurologic--cranial nerves II through XII grossly intact. Rheumatologic--normal range of motion. Psychiatric--normal affect. Results & Data Results & Data ([facility]) Vital Signs (Past 12 Hours) Vital Signs Temp Pulse Pulse Resp BP Pulse Ox O2 Del Method 01/01/23 11:20 97.9 F 75 18 128/80 95 Room Air 01/01/23 07:58 74 18 93 Room Air PG Care Time/CCT Total # of Minutes Spent Total Time Spent with Patient: Total time spent is greater than 50% in coordination of care (as documented) at patient's floor/unit and/or counseling patient: Coding Level of Care Code 90839 SUB INP/OBS CARE 2/35MIN Diagnoses Fracture of distal end of right femur S72.401A Adjustment disorder with depressed mood F43.21 Acute on chronic combined systolic and diastolic CHF (congestive heart failure) I50.43 Type 2 diabetes mellitus E11.9 Weakness R53.1 Hypothyroidism (acquired) E03.9 GERD (gastroesophageal reflux disease) K21.9 Anxiety F41.9 Morbid obesity with BMI of 60.0-69.9, adult E66.01; Z68.44 Poor social situation Z65.9 DVT prophylaxis Z29.9 CKD (chronic kidney disease) N18.9 Time Spent (min) 35
[2023-01-01] MEDS ORDERED: Nursing to Pharmacy Communication SCH ×2 (15:45)
[2023-01-01] MEDS: MELATONIN 3 MG TAB PO SCH (20:58)
[2023-01-01] MEDS: buPROPion SR 100 MG TABCR PO SCH (21:00)
[2023-01-01] MEDS: ATORVASTATIN 40 MG TAB PO SCH (21:00)
[2023-01-02] MEDS: TORSEMIDE 20 MG TAB PO SCH (07:14)
[2023-01-02] MEDS: ALBUT/IPRATROP 3MG/0.5MG NEB 3 ML VIAL NEB PRN ×2 (07:22→14:53)
[2023-01-02] MEDS: LEVOTHYROXINE SODIUM 25 MCG TABLET PO SCH (08:03)
[2023-01-02] MEDS: LEVOTHYROXINE SODIUM 200 MCG TABLET PO SCH (08:03)
[2023-01-02] MEDS: SERTRALINE HCL 50 MG TABLET PO SCH (08:04)
[2023-01-02] MEDS: METOPROLOL TARTRATE 25 MG TAB PO SCH ×2 (08:04→21:13)
[2023-01-02] MEDS: buPROPion SR 100 MG TABCR PO SCH ×2 (08:05→21:12)
[2023-01-02] MEDS: DOCUSATE SODIUM 100 MG CAP PO SCH ×2 (08:05→21:11)
[2023-01-02] MEDS: EMPAGLIFLOZIN 10 MG TAB PO SCH (08:05)
[2023-01-02] MEDS: DICLOFENAC SOD 1% GEL 100 GM TUBE EXT SCH ×4 (08:06→21:11)
[2023-01-02] MEDS: BACITRACIN OINT 15 GM TUBE EXT SCH (08:07)
[2023-01-02] MEDS: PANTOprazole 40 MG TAB PO SCH (08:07)
[2023-01-02] MEDS: INSULIN, Rapid-Acting PUMP SCH ×4 (08:59→21:07)
[2023-01-02] MEDS: FOLIC ACID 1 MG TAB PO SCH (09:35)
[2023-01-02] MEDS: MAGNESIUM OXIDE 400 MG TAB PO SCH (09:36)
[2023-01-02] MEDS: ISOSORBIDE MONO EXTENDED REL 30 MG TABCR PO SCH (09:36)
[2023-01-02] MEDS: SPIRONOLACTONE 25 MG TAB PO SCH (09:36)
[2023-01-02] MEDS: TOPIRAMATE 100 MG TAB PO SCH (09:36)
[2023-01-02] MEDS: CALCIUM CITRATE 950 MG TAB PO SCH (11:55)
--- NOTE | 2023-01-02 13:49 | Hospitalist Progress Note ---
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 Cont nonoperative management. TTWB allowed by Dr Contreras to RLE as of 11/29/22. Pt prefers total non-weightbearing to the RLE, however. Pain is under good control Pain regimen: Cont tylenol 1gm TID PRN Cont oxy 10mg prn. Cont voltaren gel qid. (2) Adjustment disorder with depressed mood: Plan: Initially thought to be depressed due to PROLONGED institutionalized status (here, [facility], multiple SNF, etc), not being able to see her daughter, poor sleep, etc remains on wellbutrin 100mg qam + wellbutrin 200mg qhs along with topamax 100mg qam and 200mg qhs sertraline 25mg daily initiated on 11/28/22 ; increased the dose to 50mg daily on 12/11/22. could increase to 75mg if needed. previous TSH, B12, 25-OH vit D levels -- all wnl patient currently has a cheerful disposition and affect (3) Acute on chronic combined systolic and diastolic CHF (congestive heart failure): Plan: Cont torsemide 20 mg daily. Continue spironolactone, metoprolol, isosorbide mononitrate, ASA, atorvastatin. Last echo - 09/2022 with EF 45-50%. (4) Type 2 diabetes mellitus: Plan: On insulin pump with excellent readings (<200 all times) and no hypoglycemia. Most recent a1c = 7.2% in 10/2022. Cont jardiance. (5) Weakness: Plan: Cont PT/OT as tolerated. Treat underlying depression. Would benefit from rehab at SNF or other facility but refusing - will only entertain idea of going home with caregivers. She lives with her daughter Carmen who is disabled, but has her own care givers (6) Hypothyroidism (acquired): Plan: Continue Levothyroxine. TSH 1.1 on 10/22/22. (7) GERD (gastroesophageal reflux disease): Plan: Continue protonix (8) Anxiety: Plan: cont zoloft 50mg daily (9) Morbid obesity with BMI of 60.0-69.9, adult: Plan: BMI 63-64 Adviced on lifestyle modification (10) Poor social situation: Plan: her prolonged hospital stay is due to disposition difficulties she was previously at [facility] - refuses to go back there she refuses to attend another SNF or go out of the [facility] for placement she wishes to go home with caregivers/HH by report has a large # of hours (90 by report) approved for in-home personal care; however, finding caregivers has been severely problematic social work has contacted between 20-30 home health agencies to try and secure help to no avail further, she needs a ramp built to be able to enter her home she also needs her entryway door widened to accommodate a large wheelchair social work continues to work on all of the above unfortunately no new leads on securing caregivers for her exhaustive search continues Per the legal department, no one could be forced to go to a fci (11) DVT prophylaxis: Plan: lovenox 40mg BID due to extreme morbid obesity (12) CKD (chronic kidney disease): Plan: CKD stage 3, stable Avoid nephrotoxics Plan awaiting disposition Admission and Anticipated Discharge Date Admission Date: October 01, 2022 Subjective patient seen and examined, sitting up in the chair, no new complaints, says she slept well, appetite is good, awaiting for work to be done at her home, vital signs are stable Review of Systems Review of Systems: All systems reviewed are negative, apart from the ones contained in the history. Physical Exam Physical Exam: The patient is awake, alert and oriented 3, morbidly obese HEENT--PERRL, EOMI, mucous membranes and oropharynx mildly dry Neck--supple. No JVD. No bruits. Thyroid normal, trachea midline, no adenopathy. Heart--normal S1 and S2. No murmurs, rubs or gallops. Lungs--clear bilaterally, no respiratory distress, no accessory muscle use. Abdomen--normal bowel sounds and soft. Mild epigastric and left sided abdominal pain Extremities--no cyanosis or clubbing. No edema. Dermatologic--normal skin turgor, normal color, no abnormal lymph nodes, no rash. Neurologic--cranial nerves II through XII grossly intact. Rheumatologic--normal range of motion. Psychiatric--normal affect. Results & Data Results & Data ([facility]) Vital Signs (Past 12 Hours) Vital Signs Temp Pulse Resp BP Pulse Ox O2 Del Method 01/02/23 07:52 97.7 F 65 16 133/74 94 Room Air 01/02/23 07:23 66 16 97 Room Air PG Care Time/CCT Total # of Minutes Spent Total Time Spent with Patient: Total time spent is greater than 50% in coordination of care (as documented) at patient's floor/unit and/or counseling patient: Coding Level of Care Code 71801 SUB INP/OBS CARE 12/15MIN Diagnoses Fracture of distal end of right femur S72.401A Adjustment disorder with depressed mood F43.21 Acute on chronic combined systolic and diastolic CHF (congestive heart failure) I50.43 Type 2 diabetes mellitus E11.9 Weakness R53.1 Hypothyroidism (acquired) E03.9 GERD (gastroesophageal reflux disease) K21.9 Anxiety F41.9 Morbid obesity with BMI of 60.0-69.9, adult E66.01; Z68.44 Poor social situation Z65.9 DVT prophylaxis Z29.9 CKD (chronic kidney disease) N18.9 Time Spent (min) 25
[2023-01-02] MEDS: MELATONIN 3 MG TAB PO SCH (21:12)
[2023-01-02] MEDS: ATORVASTATIN 40 MG TAB PO SCH (21:13)
[2023-01-02] MEDS ORDERED: oxyCODONE HCL IR 5 MG TAB (IMMEDIATE RELEASE) PO ONE (21:34)
[2023-01-03] MEDS: PANTOprazole 40 MG TAB PO SCH (06:11)
[2023-01-03] MEDS: TORSEMIDE 10 MG TAB PO PRN ×2 (06:12→06:13)
[2023-01-03] MEDS: TORSEMIDE 20 MG TAB PO SCH (06:14)
[2023-01-03] MEDS: LEVOTHYROXINE SODIUM 200 MCG TABLET PO SCH (06:14)
[2023-01-03] MEDS: LEVOTHYROXINE SODIUM 25 MCG TABLET PO SCH (06:14)
[2023-01-03] MEDS: ALBUT/IPRATROP 3MG/0.5MG NEB 3 ML VIAL NEB PRN ×2 (07:31→14:42)
[2023-01-03] MEDS: EMPAGLIFLOZIN 10 MG TAB PO SCH (07:37)
[2023-01-03] MEDS: buPROPion SR 100 MG TABCR PO SCH ×2 (07:38→20:49)
[2023-01-03] MEDS: ISOSORBIDE MONO EXTENDED REL 30 MG TABCR PO SCH (07:38)
[2023-01-03] MEDS: SERTRALINE HCL 50 MG TABLET PO SCH (07:38)
[2023-01-03] MEDS: SPIRONOLACTONE 25 MG TAB PO SCH (07:38)
[2023-01-03] MEDS: FOLIC ACID 1 MG TAB PO SCH (07:38)
[2023-01-03] MEDS: MAGNESIUM OXIDE 400 MG TAB PO SCH (07:38)
[2023-01-03] MEDS: TOPIRAMATE 100 MG TAB PO SCH (07:38)
[2023-01-03] MEDS: DOCUSATE SODIUM 100 MG CAP PO SCH ×2 (07:39→20:47)
[2023-01-03] MEDS: DICLOFENAC SOD 1% GEL 100 GM TUBE EXT SCH ×4 (07:39→20:49)
[2023-01-03] MEDS: INSULIN, Rapid-Acting PUMP SCH ×4 (08:18→20:53)
[2023-01-03] MEDS ORDERED: oxyCODONE HCL IR 5 MG TAB (IMMEDIATE RELEASE) PO PRN (11:09)
--- NOTE | 2023-01-03 11:53 | Hospitalist Progress Note ---
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 Cont nonoperative management. TTWB allowed by Dr Contreras to RLE as of 11/29/22. Pt prefers total non-weightbearing to the RLE, however. Pain is under good control Pain regimen: Cont tylenol 1gm TID PRN Cont oxy 10mg prn. Cont voltaren gel qid. (2) Adjustment disorder with depressed mood: Plan: Initially thought to be depressed due to PROLONGED institutionalized status (here, [facility], multiple SNF, etc), not being able to see her daughter, poor sleep, etc remains on wellbutrin 100mg qam + wellbutrin 200mg qhs along with topamax 100mg qam and 200mg qhs sertraline 25mg daily initiated on 11/28/22 ; increased the dose to 50mg daily on 12/11/22. could increase to 75mg if needed. previous TSH, B12, 25-OH vit D levels -- all wnl patient currently has a cheerful disposition and affect (3) Acute on chronic combined systolic and diastolic CHF (congestive heart failure): Plan: Cont torsemide 20 mg daily. Continue spironolactone, metoprolol, isosorbide mononitrate, ASA, atorvastatin. Last echo - 09/2022 with EF 45-50%. (4) Type 2 diabetes mellitus: Plan: On insulin pump with excellent readings (<200 all times) and no hypoglycemia. Most recent a1c = 7.2% in 10/2022. Cont jardiance. (5) Weakness: Plan: Cont PT/OT as tolerated. Treat underlying depression. Would benefit from rehab at SNF or other facility but refusing - will only entertain idea of going home with caregivers. She lives with her daughter Carmen who is disabled, but has her own care givers (6) Hypothyroidism (acquired): Plan: Continue Levothyroxine. TSH 1.1 on 10/22/22. (7) GERD (gastroesophageal reflux disease): Plan: Continue protonix (8) Anxiety: Plan: cont zoloft 50mg daily (9) Morbid obesity with BMI of 60.0-69.9, adult: Plan: BMI 63-64 Adviced on lifestyle modification (10) Poor social situation: Plan: her prolonged hospital stay is due to disposition difficulties she was previously at [facility] - refuses to go back there she refuses to attend another SNF or go out of the [facility] for placement she wishes to go home with caregivers/HH by report has a large # of hours (90 by report) approved for in-home personal care; however, finding caregivers has been severely problematic social work has contacted between 20-30 home health agencies to try and secure help to no avail further, she needs a ramp built to be able to enter her home she also needs her entryway door widened to accommodate a large wheelchair social work continues to work on all of the above unfortunately no new leads on securing caregivers for her exhaustive search continues Per the legal department, no one could be forced to go to a detention (11) DVT prophylaxis: Plan: lovenox 40mg BID due to extreme morbid obesity (12) CKD (chronic kidney disease): Plan: CKD stage 3, stable Avoid nephrotoxics Plan awaiting disposition Admission and Anticipated Discharge Date Admission Date: October 01, 2022 Subjective patient seen and examined, sitting up in the chair, no new complaints, says she slept well, appetite is good, awaiting for work to be done at her home, vital signs are stable Review of Systems Review of Systems: All systems reviewed are negative, apart from the ones contained in the history. Physical Exam Physical Exam: The patient is awake, alert and oriented 3, morbidly obese HEENT--PERRL, EOMI, mucous membranes and oropharynx mildly dry Neck--supple. No JVD. No bruits. Thyroid normal, trachea midline, no adenopathy. Heart--normal S1 and S2. No murmurs, rubs or gallops. Lungs--clear bilaterally, no respiratory distress, no accessory muscle use. Abdomen--normal bowel sounds and soft. Mild epigastric and left sided abdominal pain Extremities--no cyanosis or clubbing. No edema. Dermatologic--normal skin turgor, normal color, no abnormal lymph nodes, no rash. Neurologic--cranial nerves II through XII grossly intact. Rheumatologic--normal range of motion. Psychiatric--normal affect. Results & Data Results & Data ([facility]) Vital Signs (Past 12 Hours) Vital Signs Temp Pulse Resp BP Pulse Ox O2 Del Method 01/03/23 08:00 Room Air 01/03/23 07:57 97.9 F 78 20 135/67 92 Room Air 01/03/23 07:33 65 18 92 Room Air PG Care Time/CCT Total # of Minutes Spent Total Time Spent with Patient: Total time spent is greater than 50% in coordination of care (as documented) at patient's floor/unit and/or counseling patient: Coding Level of Care Code 97952 SUB INP/OBS CARE 2/35MIN Diagnoses Fracture of distal end of right femur S72.401A Adjustment disorder with depressed mood F43.21 Acute on chronic combined systolic and diastolic CHF (congestive heart failure) I50.43 Type 2 diabetes mellitus E11.9 Weakness R53.1 Hypothyroidism (acquired) E03.9 GERD (gastroesophageal reflux disease) K21.9 Anxiety F41.9 Morbid obesity with BMI of 60.0-69.9, adult E66.01; Z68.44 Poor social situation Z65.9 DVT prophylaxis Z29.9 CKD (chronic kidney disease) N18.9 Time Spent (min) 35
[2023-01-03] MEDS: ENOXAPARIN INJ 40 MG/0.4 ML SYR SQ SCH ×2 (12:18→20:50)
[2023-01-03] MEDS: CALCIUM CITRATE 950 MG TAB PO SCH (12:30)
[2023-01-03] MEDS: METOPROLOL TARTRATE 25 MG TAB PO SCH (20:47)
[2023-01-03] MEDS: MELATONIN 3 MG TAB PO SCH (20:48)
[2023-01-03] MEDS: ATORVASTATIN 40 MG TAB PO SCH (20:48)
[2023-01-04] MEDS: LEVOTHYROXINE SODIUM 200 MCG TABLET PO SCH (06:08)
[2023-01-04] MEDS: TORSEMIDE 20 MG TAB PO SCH (06:09)
[2023-01-04] MEDS: LEVOTHYROXINE SODIUM 25 MCG TABLET PO SCH (06:09)
[2023-01-04] MEDS: PANTOprazole 40 MG TAB PO SCH (06:09)
[2023-01-04] MEDS: ALBUT/IPRATROP 3MG/0.5MG NEB 3 ML VIAL NEB PRN ×2 (06:56→14:47)
[2023-01-04] MEDS: buPROPion SR 100 MG TABCR PO SCH ×2 (08:36→21:22)
[2023-01-04] MEDS: EMPAGLIFLOZIN 10 MG TAB PO SCH (08:37)
[2023-01-04] MEDS: FOLIC ACID 1 MG TAB PO SCH (08:37)
[2023-01-04] MEDS: DOCUSATE SODIUM 100 MG CAP PO SCH ×2 (08:37→21:21)
[2023-01-04] MEDS: SERTRALINE HCL 50 MG TABLET PO SCH (08:37)
[2023-01-04] MEDS: METOPROLOL TARTRATE 25 MG TAB PO SCH ×2 (08:37→21:24)
[2023-01-04] MEDS: TOPIRAMATE 100 MG TAB PO SCH (08:37)
[2023-01-04] MEDS: ENOXAPARIN INJ 40 MG/0.4 ML SYR SQ SCH ×2 (08:37→21:21)
[2023-01-04] MEDS: SPIRONOLACTONE 25 MG TAB PO SCH (08:37)
[2023-01-04] MEDS: ISOSORBIDE MONO EXTENDED REL 30 MG TABCR PO SCH (08:37)
[2023-01-04] MEDS: MAGNESIUM OXIDE 400 MG TAB PO SCH (08:37)
[2023-01-04] MEDS: DICLOFENAC SOD 1% GEL 100 GM TUBE EXT SCH ×4 (08:37→21:21)
[2023-01-04] MEDS: INSULIN, Rapid-Acting PUMP SCH ×4 (09:19→22:46)
[2023-01-04] MEDS: CALCIUM CITRATE 950 MG TAB PO SCH (13:10)
--- NOTE | 2023-01-04 19:36 | Hospitalist Progress Note ---
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 Most recent x-rays (11/28/22) with some callus formation over fracture site. Cont nonoperative management. TTWB allowed by Dr Contreras to RLE as of 11/29/22. Pt prefers total non-weightbearing to the RLE, however. Pain regimen -- Cont tylenol 1gm TID. Cont oxy 10mg prn. Cont voltaren gel qid. (2) Adjustment disorder with depressed mood: Plan: stable, improved. depressed due to PROLONGED institutionalized status (here, [facility], multiple SNF, etc), not being able to see her daughter, poor sleep, etc remains on wellbutrin 100mg qam + wellbutrin 200mg qhs along with topamax 100mg qam and 200mg qhs sertraline 25mg daily initiated on 11/28/22 ; increased the dose to 50mg daily on 12/11/22. since my last visit with her several weeks ago her affect is much more full, she is in good spirits, etc. previous TSH, B12, 25-OH vit D levels -- all wnl (3) Acute on chronic combined systolic and diastolic CHF (congestive heart failure): Plan: Cont torsemide 20 mg daily. Continue spironolactone, metoprolol, isosorbide mononitrate, ASA, atorvastatin. Last echo - 09/2022 with EF 45-50%. Weights relatively stable over the last week. (4) Type 2 diabetes mellitus: Plan: On insulin pump with excellent readings (<200 all times) and no hypoglycemia. Most recent a1c = 7.2% in 10/2022. Cont jardiance. (5) Weakness: Plan: Cont PT/OT as tolerated. Treat underlying depression. Would benefit from rehab at SNF or other facility but refusing - will only entertain idea of going home with caregivers. She lives with her daughter Carmen who is disabled. (6) Hypothyroidism (acquired): Plan: Continue Levothyroxine. TSH 1.1 on 10/22/22. (7) CKD stage 4 due to type 2 diabetes mellitus: Plan: Baseline creatinine 1.3-1.8. Her CrCl is low 50s c/w CKD stage 3. Cr 1.6 on 12/28/22. (8) GERD (gastroesophageal reflux disease): Plan: Continue protonix (9) Anxiety: Plan: cont zoloft 50mg daily (10) Morbid obesity with BMI of 60.0-69.9, adult: Plan: BMI 64 (11) Tracheostomy dependence: Plan: for [facility] cont routine trach care no issues (12) Poor social situation: Plan: her prolonged hospital stay is due to disposition difficulties she was previously at [facility] SN[facility] - refuses to go back there she refuses to attend another SNF or go out of the [facility] for placement she wishes to go home with caregivers/HH refuses acute inpatient rehab ([facility], etc) by report has a large # of hours (90 by report) approved for in-home personal care; however, finding caregivers has been severely problematic social work here continues to work with her outpatient skilled nursing case manager to find caregivers further, she needs a ramp built to be able to enter her home she also needs her entryway door widened to accommodate a large wheelchair (13) DVT prophylaxis: Plan: lovenox 40mg BID due to extreme morbid obesity Admission and Anticipated Discharge Date Admission Date: October 01, 2022 Subjective no new issues feeling good glycemic control excellent -- flowsheet of her BSGs from her Dexcom are <200 eating well no issues with trach still waiting on caregivers for her at her home in order to discharge Review of Systems Review of Systems: cv - no chest pain pulm - no dyspnea or cough at rest GI - no abd pain or nausea / vomiting Physical Exam Physical Exam: gen - morbidly obese, NAD, sitting in chair anterior neck - metal trach clean heart - RRR, s1 s2, no murmur lungs - CTA b/l; airation wnl ext - trace edema of feet b/l - no change, pulses 2+ b/l psych - a/o x 3 Results & Data Results & Data ([facility]) Vital Signs (Past 12 Hours) Vital Signs Temp Pulse Pulse Resp BP Pulse Ox O2 Del Method 01/04/23 15:35 36.7 C 70 18 123/57 L 94 Room Air 01/04/23 14:58 74 18 94 Room Air 01/04/23 11:33 Room Air 01/04/23 07:50 36.6 C 66 20 133/76 94 Room Air Laboratory Results Laboratory Results - last 24 hr 01/03/23 01/04/23 01/04/23 20:39 07:44 11:51 POC Glucose 151 H 93 120 H 01/04/23 17:03 POC Glucose 145 H PG Care Time/CCT Total # of Minutes Spent Total Time Spent with Patient: Total time spent is greater than 50% in coordination of care (as documented) at patient's floor/unit and/or counseling patient: Coding Level of Care Code 76778 SUB INP/OBS CARE 12/15MIN Diagnoses Fracture of distal end of right femur S72.401A Adjustment disorder with depressed mood F43.21 Acute on chronic combined systolic and diastolic CHF (congestive heart failure) I50.43 Type 2 diabetes mellitus E11.9 Weakness R53.1 Hypothyroidism (acquired) E03.9 CKD stage 4 due to type 2 diabetes mellitus E11.22; N18.4 GERD (gastroesophageal reflux disease) K21.9 Anxiety F41.9 Morbid obesity with BMI of 60.0-69.9, adult E66.01; Z68.44 Tracheostomy dependence Z93.0 Poor social situation Z65.9 DVT prophylaxis Z29.9
[2023-01-04] MEDS: MELATONIN 3 MG TAB PO SCH (21:22)
[2023-01-04] MEDS: ATORVASTATIN 40 MG TAB PO SCH (21:23)
[2023-01-05] MEDS: LEVOTHYROXINE SODIUM 200 MCG TABLET PO SCH (06:07)
[2023-01-05] MEDS: TORSEMIDE 20 MG TAB PO SCH (06:07)
[2023-01-05] MEDS: PANTOprazole 40 MG TAB PO SCH (06:07)
[2023-01-05] MEDS: LEVOTHYROXINE SODIUM 25 MCG TABLET PO SCH (06:08)
[2023-01-05] MEDS: ALBUT/IPRATROP 3MG/0.5MG NEB 3 ML VIAL NEB PRN ×2 (07:26→15:30)
[2023-01-05] MEDS: FOLIC ACID 1 MG TAB PO SCH (08:48)
[2023-01-05] MEDS: buPROPion SR 100 MG TABCR PO SCH ×2 (08:48→20:01)
[2023-01-05] MEDS: DOCUSATE SODIUM 100 MG CAP PO SCH ×2 (08:48→20:03)
[2023-01-05] MEDS: SPIRONOLACTONE 25 MG TAB PO SCH (08:48)
[2023-01-05] MEDS: METOPROLOL TARTRATE 25 MG TAB PO SCH ×2 (08:48→20:01)
[2023-01-05] MEDS: TOPIRAMATE 100 MG TAB PO SCH (08:48)
[2023-01-05] MEDS: SERTRALINE HCL 50 MG TABLET PO SCH (08:48)
[2023-01-05] MEDS: MAGNESIUM OXIDE 400 MG TAB PO SCH (08:48)
[2023-01-05] MEDS: DICLOFENAC SOD 1% GEL 100 GM TUBE EXT SCH ×4 (08:48→20:00)
[2023-01-05] MEDS: ISOSORBIDE MONO EXTENDED REL 30 MG TABCR PO SCH (08:48)
[2023-01-05] MEDS: ENOXAPARIN INJ 40 MG/0.4 ML SYR SQ SCH ×2 (08:48→19:58)
[2023-01-05] MEDS: EMPAGLIFLOZIN 10 MG TAB PO SCH (08:48)
[2023-01-05] MEDS: INSULIN, Rapid-Acting PUMP SCH ×4 (09:20→20:55)
[2023-01-05] MEDS: CALCIUM CITRATE 950 MG TAB PO SCH (12:53)
--- NOTE | 2023-01-05 19:18 | Hospitalist Progress Note ---
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 Most recent x-rays (11/28/22) with some callus formation over fracture site. Cont nonoperative management. TTWB allowed by Dr Contreras to RLE as of 11/29/22. Pt prefers total non-weightbearing to the RLE, however. Pain regimen -- Cont tylenol 1gm TID. Cont oxy 10mg but change dosing frequent from q6h to a4h prn. Cont voltaren gel qid. (2) Adjustment disorder with depressed mood: Plan: stable, improved. depressed due to PROLONGED institutionalized status (here, [facility], multiple SNF, etc), not being able to see her daughter, poor sleep, etc remains on wellbutrin 100mg qam + wellbutrin 200mg qhs along with topamax 100mg qam and 200mg qhs sertraline 25mg daily initiated on 11/28/22 ; increased the dose to 50mg daily on 12/11/22. tolerating such. Na level on most recent blood draw earlier this month was wnl. since my last visit with her several weeks ago her affect is much more full, she is in good spirits, etc. previous TSH, B12, 25-OH vit D levels -- all wnl (3) Acute on chronic combined systolic and diastolic CHF (congestive heart failure): Plan: Cont torsemide 20 mg daily. I might give additional dose tomorrow as weight is still much higher than earlier in the stay. Continue spironolactone, metoprolol, isosorbide mononitrate, ASA, atorvastatin. Last echo - 09/2022 with EF 45-50%. (4) Type 2 diabetes mellitus: Plan: On insulin pump with excellent readings (<200 all times) and no hypoglycemia. Most recent a1c = 7.2% in 10/2022. Cont jardiance. (5) Weakness: Plan: Cont PT/OT as tolerated. Treat underlying depression. Would benefit from rehab at SNF or other facility but refusing - will only entertain idea of going home with caregivers. She lives with her daughter Carmen who is disabled. (6) Hypothyroidism (acquired): Plan: Continue Levothyroxine. TSH 1.1 on 10/22/22. (7) CKD stage 4 due to type 2 diabetes mellitus: Plan: Baseline creatinine 1.3-1.8. Her CrCl is low 50s c/w CKD stage 3. Cr 1.6 on 12/28/22. (8) GERD (gastroesophageal reflux disease): Plan: Continue protonix (9) Anxiety: Plan: cont zoloft 50mg daily (10) Morbid obesity with BMI of 60.0-69.9, adult: Plan: BMI 64 (11) Tracheostomy dependence: Plan: for RASHAAD/OHS cont routine trach care no issues (12) Poor social situation: Plan: her prolonged hospital stay is due to disposition difficulties she was previously at [facility] - refuses to go back there she refuses to attend another SNF or go out of the [facility] for placement she wishes to go home with caregivers/HH refuses acute inpatient rehab ([facility], etc) by report has a large # of hours (90 by report) approved for in-home personal care; however, finding caregivers has been severely problematic social work at [facility] have spent MONTHS trying to secure caregivers without any success social work here continues to work with her outpatient home health care case manager to find caregivers further, she needs a ramp built to be able to enter her home she also needs her entryway door widened to accommodate a large wheelchair at this point we are pursuing SNF placement - NUMEROUS REFERRALS have been made (see list in most recent case management note) (13) DVT prophylaxis: Plan: lovenox 40mg BID due to extreme morbid obesity Admission and Anticipated Discharge Date Admission Date: October 01, 2022 Subjective no issues overnight diabetic flowsheet with excellent glycemic control (all BSGs <200) R knee pain unchanged; she does feel she could use slight dose increase in pain meds moving bowels BARGER with moving from commode to bed and back unchanged no trach drainage eating well states her daughter found a caregiver that can provide 6 days of care each week but they need an additional person to cover Review of Systems Review of Systems: gen - feels good cv - no cp; chronic orthopnea unchanged; no significant edema pulm - chronic BARGER - unchanged; no cough GI - no abd pain Physical Exam Physical Exam: gen - morbidly obese, NAD, laying in bed watching TV anterior neck - metal trach clean, no drainage mouth - MMM; no thrush heart - RRR, s1 s2, no murmur lungs - CTA b/l; airation wnl except bases decreased ext - trace edema of feet b/l - no change, pulses 2+ b/l psych - a/o x 3 skin - tinea pedis b/l feet much improved from several weeks prior Results & Data Results & Data ([facility]) Vital Signs (Past 12 Hours) Vital Signs Temp Pulse Pulse Resp BP Pulse Ox O2 Del Method 01/05/23 15:30 36.8 C 69 16 101/60 92 Room Air 01/05/23 15:31 69 18 96 Room Air 01/05/23 08:00 36.6 C 71 16 133/68 93 Room Air 01/05/23 07:28 70 18 93 Room Air Laboratory Results Laboratory Results - last 24 hr 01/04/23 01/05/23 01/05/23 21:06 08:27 11:58 POC Glucose 150 H 120 H 133 H 01/05/23 17:06 POC Glucose 143 H PG Care Time/CCT Total # of Minutes Spent Total Time Spent with Patient: Total time spent is greater than 50% in coordination of care (as documented) at patient's floor/unit and/or counseling patient: Coding Level of Care Code 93631 SUB INP/OBS CARE 12/15MIN Diagnoses Fracture of distal end of right femur S72.401A Adjustment disorder with depressed mood F43.21 Acute on chronic combined systolic and diastolic CHF (congestive heart failure) I50.43 Type 2 diabetes mellitus E11.9 Weakness R53.1 Hypothyroidism (acquired) E03.9 CKD stage 4 due to type 2 diabetes mellitus E11.22; N18.4 GERD (gastroesophageal reflux disease) K21.9 Anxiety F41.9 Morbid obesity with BMI of 60.0-69.9, adult E66.01; Z68.44 Tracheostomy dependence Z93.0 Poor social situation Z65.9 DVT prophylaxis Z29.9
[2023-01-05] MEDS: oxyCODONE HCL IR 5 MG TAB (IMMEDIATE RELEASE) PO PRN (19:57)
[2023-01-05] MEDS: ATORVASTATIN 40 MG TAB PO SCH (19:59)
[2023-01-05] MEDS: MELATONIN 3 MG TAB PO SCH (20:00)
[2023-01-06] MEDS: TORSEMIDE 20 MG TAB PO SCH (05:48)
[2023-01-06] MEDS: LEVOTHYROXINE SODIUM 200 MCG TABLET PO SCH (05:48)
[2023-01-06] MEDS: LEVOTHYROXINE SODIUM 25 MCG TABLET PO SCH (05:48)
[2023-01-06] MEDS: PANTOprazole 40 MG TAB PO SCH (05:48)
[2023-01-06] MEDS: ALBUT/IPRATROP 3MG/0.5MG NEB 3 ML VIAL NEB PRN ×2 (07:05→15:17)
[2023-01-06] MEDS: INSULIN, Rapid-Acting PUMP SCH ×4 (08:36→21:36)
[2023-01-06] MEDS: METOPROLOL TARTRATE 25 MG TAB PO SCH ×2 (09:38→21:34)
[2023-01-06] MEDS: buPROPion SR 100 MG TABCR PO SCH ×2 (09:38→21:36)
[2023-01-06] MEDS: TOPIRAMATE 100 MG TAB PO SCH (09:38)
[2023-01-06] MEDS: SERTRALINE HCL 50 MG TABLET PO SCH (09:38)
[2023-01-06] MEDS: FOLIC ACID 1 MG TAB PO SCH (09:38)
[2023-01-06] MEDS: ISOSORBIDE MONO EXTENDED REL 30 MG TABCR PO SCH (09:38)
[2023-01-06] MEDS: EMPAGLIFLOZIN 10 MG TAB PO SCH (09:38)
[2023-01-06] MEDS: ENOXAPARIN INJ 40 MG/0.4 ML SYR SQ SCH ×2 (09:39→21:33)
[2023-01-06] MEDS: SPIRONOLACTONE 25 MG TAB PO SCH (09:39)
[2023-01-06] MEDS: MAGNESIUM OXIDE 400 MG TAB PO SCH (09:39)
[2023-01-06] MEDS: DICLOFENAC SOD 1% GEL 100 GM TUBE EXT SCH ×4 (09:39→21:35)
[2023-01-06] MEDS: DOCUSATE SODIUM 100 MG CAP PO SCH ×2 (09:39→21:35)
[2023-01-06 10:23] LABS: Creatinine Clr Calc Pharmacy 48.4 ml/min; Est GFR (African American) 35.8 ml/min; Est GFR (Non-African American) 30.9 ml/min
[2023-01-06] MEDS: CALCIUM CITRATE 950 MG TAB PO SCH (12:46)
[2023-01-06] MEDS ORDERED: TORSEMIDE 10 MG TAB PO ONE (13:00)
[2023-01-06] MEDS ORDERED: POTASSIUM CHLORIDE CRTAB 20 MEQ TABCR PO ONE (13:00)
--- NOTE | 2023-01-06 20:07 | Hospitalist Progress Note ---
Date of Service January 06, 2023 Assessment & Plan (1) Acute on chronic combined systolic and diastolic CHF (congestive heart failure): Plan: Suspect she is mildly decompensated today. Mild wheezes with basilar rales likely is from pulmonary edema. Cont torsemide but give an afternoon dose today. She may need BID torsemide for several days or even IV diuretics depending on her response. Continue spironolactone, metoprolol, isosorbide mononitrate, ASA, atorvastatin. Last echo - 09/2022 with EF 45-50%. 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 Most recent x-rays (11/28/22) with some callus formation over fracture site. Cont nonoperative management. TTWB allowed by Dr Contreras to RLE as of 11/29/22. Pt prefers total non-weightbearing to the RLE, however. Pain regimen -- Cont tylenol 1gm TID. Cont oxy 10mg q4h prn. Cont voltaren gel qid. (3) Adjustment disorder with depressed mood: Plan: stable, much improved. cont zoloft 50mg daily. This was started 11/28/22. cont wellbutrin 100mg qam + wellbutrin 200mg qhs cont topamax 100mg qam + 200mg qhs previous TSH, B12, 25-OH vit D levels -- all wnl (4) Type 2 diabetes mellitus: Plan: On insulin pump with excellent readings (<200 all times). Most recent a1c = 7.2% in 10/2022. Cont jardiance. (5) Weakness: Plan: Cont PT/OT as tolerated. Treat underlying depression. Would benefit from rehab at SNF or other facility but refusing - will only entertain idea of going home with caregivers. She lives with her daughter Carmen who is disabled. (6) Hypothyroidism (acquired): Plan: Continue Levothyroxine. TSH 1.1 on 10/22/22. (7) CKD stage 4 due to type 2 diabetes mellitus: Plan: Baseline creatinine 1.3-1.8. Her CrCl is low 50s c/w CKD stage 3. Cr 1.7 today. BMP in am due to increased diuretics today. (8) GERD (gastroesophageal reflux disease): Plan: Continue protonix (9) Anxiety: Plan: cont zoloft 50mg daily (10) Morbid obesity with BMI of 60.0-69.9, adult: Plan: BMI 64 (11) Tracheostomy dependence: Plan: for RASHAAD/OHS cont routine trach care no issues (12) Poor social situation: Plan: her prolonged hospital stay is due to disposition difficulties she was previously at [facility] - refuses to go back there she refuses to attend another SNF or go out of the [facility] for placement she wishes to go home with caregivers/HH refuses acute inpatient rehab ([facility], etc) by report has a large # of hours (90 by report) approved for in-home personal care; however, finding caregivers has been severely problematic social work at [facility] have spent MONTHS trying to secure caregivers without any success social work here continues to work with her outpatient case management social worker to find caregivers further, she needs a ramp built to be able to enter her home she also needs her entryway door widened to accommodate a large wheelchair at this point we are pursuing SNF placement - NUMEROUS REFERRALS have been made (see list in most recent case management notes) (13) DVT prophylaxis: Plan: lovenox 40mg BID due to extreme morbid obesity Admission and Anticipated Discharge Date Admission Date: October 01, 2022 Subjective patient feels a little wheezy today slightly more cough than baseline no dyspnea at rest she does not feel ill her appetite remains robust BSGs are all <200 no other new complaints Review of Systems Review of Systems: gen - no fevers cv - no chest pain pulm - BARGER but none at rest; some wheeze, some increased cough GI - no pain/nausea/emesis Physical Exam Physical Exam: gen - morbidly obese, NAD, laying in bed comfortably anterior neck - metal trach clean, no drainage; unable to assess for JVD mouth - MMM; no thrush or lesions heart - RRR, s1 s2, no murmur lungs - mild crackles bases; scattered end-exp wheezes b/l; no increased work of breathing ext - trace-1+ edema of feet b/l, pulses 2+ b/l psych - a/o x 3 Results & Data Results & Data ([facility]) Vital Signs (Past 12 Hours) Vital Signs Temp Pulse Pulse Resp BP Pulse Ox O2 Del Method 01/06/23 15:44 36.7 C 67 20 118/61 92 Room Air 02/16/23 15:17 78 17 96 Room Air Laboratory Results Cr 1.7 today BSGs all <200 PG Care Time/CCT Total # of Minutes Spent Total Time Spent with Patient: Total time spent is greater than 50% in coordination of care (as documented) at patient's floor/unit and/or counseling patient: Coding Level of Care Code 31952 SUB INP/OBS CARE /25MIN Diagnoses Acute on chronic combined systolic and diastolic CHF (congestive heart failure) I50.43 Fracture of distal end of right femur S72.401A Adjustment disorder with depressed mood F43.21 Type 2 diabetes mellitus E11.9 Weakness R53.1 Hypothyroidism (acquired) E03.9 CKD stage 4 due to type 2 diabetes mellitus E11.22; N18.4 GERD (gastroesophageal reflux disease) K21.9 Anxiety F41.9 Morbid obesity with BMI of 60.0-69.9, adult E66.01; Z68.44 Tracheostomy dependence Z93.0 Poor social situation Z65.9 DVT prophylaxis Z29.9
[2023-01-06] MEDS: oxyCODONE HCL IR 5 MG TAB (IMMEDIATE RELEASE) PO PRN (21:32)
[2023-01-06] MEDS: MELATONIN 3 MG TAB PO SCH (21:33)
[2023-01-06] MEDS: ATORVASTATIN 40 MG TAB PO SCH (21:36)
[2023-01-07] MEDS: LEVOTHYROXINE SODIUM 25 MCG TABLET PO SCH (06:32)
[2023-01-07] MEDS: PANTOprazole 40 MG TAB PO SCH (06:32)
[2023-01-07] MEDS: LEVOTHYROXINE SODIUM 200 MCG TABLET PO SCH (06:32)
[2023-01-07] MEDS: TORSEMIDE 20 MG TAB PO SCH (06:33)
[2023-01-07] MEDS: ALBUT/IPRATROP 3MG/0.5MG NEB 3 ML VIAL NEB PRN ×2 (07:36→15:04)
[2023-01-07] MEDS: DICLOFENAC SOD 1% GEL 100 GM TUBE EXT SCH ×4 (08:03→19:46)
[2023-01-07] MEDS: ENOXAPARIN INJ 40 MG/0.4 ML SYR SQ SCH ×2 (08:03→19:45)
[2023-01-07 08:24] LABS: BUN Creatinine Ratio 21.5 (10-20); Calcium 9.1 mg/dl (8.5-10.1); Creatinine Clr Calc Pharmacy 47.8 ml/min; Est GFR (African American) 35.3 ml/min; Est GFR (Non-African American) 30.5 ml/min
[2023-01-07] MEDS: INSULIN, Rapid-Acting PUMP SCH ×4 (08:40→21:00)
[2023-01-07] MEDS: SERTRALINE HCL 50 MG TABLET PO SCH (09:34)
[2023-01-07] MEDS: TOPIRAMATE 100 MG TAB PO SCH (09:34)
[2023-01-07] MEDS: FOLIC ACID 1 MG TAB PO SCH (09:34)
[2023-01-07] MEDS: ISOSORBIDE MONO EXTENDED REL 30 MG TABCR PO SCH (09:34)
[2023-01-07] MEDS: EMPAGLIFLOZIN 10 MG TAB PO SCH (09:34)
[2023-01-07] MEDS: MAGNESIUM OXIDE 400 MG TAB PO SCH (09:34)
[2023-01-07] MEDS: SPIRONOLACTONE 25 MG TAB PO SCH (09:34)
[2023-01-07] MEDS: METOPROLOL TARTRATE 25 MG TAB PO SCH ×2 (09:34→19:48)
[2023-01-07] MEDS: buPROPion SR 100 MG TABCR PO SCH ×2 (09:34→19:48)
[2023-01-07] MEDS: DOCUSATE SODIUM 100 MG CAP PO SCH ×2 (09:35→23:44)
[2023-01-07] MEDS: CALCIUM CITRATE 950 MG TAB PO SCH (12:31)
[2023-01-07] MEDS ORDERED: POTASSIUM CHLORIDE CRTAB 20 MEQ TABCR PO ONE (13:00)
[2023-01-07] MEDS ORDERED: TORSEMIDE 10 MG TAB PO ONE (13:00)
[2023-01-07] MEDS: oxyCODONE HCL IR 5 MG TAB (IMMEDIATE RELEASE) PO PRN (19:45)
[2023-01-07] MEDS: ATORVASTATIN 40 MG TAB PO SCH (19:46)
[2023-01-07] MEDS: MELATONIN 3 MG TAB PO SCH (19:48)
--- NOTE | 2023-01-07 20:12 | Hospitalist Progress Note ---
Date of Service January 07, 2023 Assessment & Plan (1) Acute on chronic combined systolic and diastolic CHF (congestive heart failure): Plan: Decompensation improved with additional diuresis yesterday and today. Check weight this afternoon once back in bed. Check BMP in am. Check BNP in am. Hold am torsemide tomorrow pending the BMP results. Continue spironolactone, metoprolol, isosorbide mononitrate, ASA, atorvastatin. Last echo - 09/2022 with EF 45-50%. 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 Most recent x-rays (11/28/22) with some callus formation over fracture site. Cont nonoperative management. TTWB allowed by Dr Contreras to RLE as of 11/29/22. Pt prefers total non-weightbearing to the RLE, however. Pain regimen -- Cont tylenol 1gm TID. Cont oxy 10mg q4h prn. Cont voltaren gel qid. (3) Adjustment disorder with depressed mood: Plan: stable, much improved. cont zoloft 50mg daily. This was started 11/28/22. cont wellbutrin 100mg qam + wellbutrin 200mg qhs cont topamax 100mg qam + 200mg qhs previous TSH, B12, 25-OH vit D levels -- all wnl (4) Type 2 diabetes mellitus: Plan: On insulin pump with excellent readings (<200 all times). Most recent a1c = 7.2% in 10/2022. Cont jardiance. (5) Weakness: Plan: Improved with PT/OT while here. Continue Rx of depression. SNF for rehab highly advised by numerous providers. (6) Hypothyroidism (acquired): Plan: Continue Levothyroxine. TSH 1.1 on 10/22/22. (7) CKD stage 4 due to type 2 diabetes mellitus: Plan: Baseline creatinine 1.3-1.8. Her CrCl is low 50s c/w CKD stage 3. Cr 1.7 once again today. BMP in am due to increased diuretics for #1. (8) GERD (gastroesophageal reflux disease): Plan: Continue protonix (9) Anxiety: Plan: cont zoloft 50mg daily (10) Morbid obesity with BMI of 60.0-69.9, adult: Plan: BMI 64 (11) Tracheostomy dependence: Plan: for RASHAAD/OHS cont routine trach care no issues (12) Poor social situation: Plan: her prolonged hospital stay is due to disposition difficulties she was previously at [facility] - refuses to go back there she refuses to attend another SNF or go out of the [facility] for placement she wishes to go home with caregivers/HH refuses acute inpatient rehab ([facility], etc) by report has a large # of hours (90 by report) approved for in-home personal care; however, finding caregivers has been severely problematic social work at [facility] have spent MONTHS trying to secure caregivers without any success social work here continues to work with her outpatient case management social worker to find caregivers further, she needs a ramp built to be able to enter her home she also needs her entryway door widened to accommodate a large wheelchair at this point we are pursuing SNF placement - NUMEROUS REFERRALS have been made (see list in most recent case management notes); waiting to hear back from facilities (13) DVT prophylaxis: Plan: lovenox 40mg BID due to extreme morbid obesity Admission and Anticipated Discharge Date Admission Date: October 01, 2022 Subjective wheezing/dyspnea some better today no significant cough eating well she is upset about the salt restriction had conversation about this given the fluid overload and her CHF no other new issues Review of Systems Review of Systems: cv - no chest pain pulm - no worsening of baseline dyspnea GI - no abd pain, nausea or emesis Physical Exam Physical Exam: gen - morbidly obese, NAD, a little agitated today anterior neck - metal trach clean, no drainage; unable to assess for JVD due to neck size mouth - MMM heart - RRR, s1 s2, no murmr; heart tones distant lungs - mild crackles bases - improved; scattered end-exp wheezes not heard today; no increased work of breathing ext - trace edema of feet b/l, pulses 2+ b/l psych - a/o x 3 Results & Data Results & Data ([facility]) Vital Signs (Past 12 Hours) Vital Signs Temp Pulse Resp BP Pulse Ox O2 Del Method 01/07/23 15:24 36.6 C 67 18 119/58 L 93 Room Air 01/07/23 15:05 67 18 92 Room Air Laboratory Results Laboratory Results - last 24 hr 01/06/23 01/07/2301/07/23 21:00 07:12 08:22 Sodium 141 Potassium 4.0 Chloride 107 Carbon Dioxide 28 Anion Gap 6 BUN 37 H Creatinine 1.72 H Est Cr Clr Drug Dosing 47.8 Est GFR ( Amer) 35.3 Est GFR (Non-Af Amer) 30.5 BUN/Creatinine Ratio 21.5 H Glucose 114 H POC Glucose 156 H 106 H Calcium 9.1 01/07/23 01/07/23 12:22 17:24 Sodium Potassium Chloride Carbon Dioxide Anion Gap BUN Creatinine Est Cr Clr Drug Dosing Est GFR ( Amer) Est GFR (Non-Af Amer) BUN/Creatinine Ratio Glucose POC Glucose 150 H 108 H Calcium PG Care Time/CCT Total # of Minutes Spent Total Time Spent with Patient: Total time spent is greater than 50% in coordination of care (as documented) at patient's floor/unit and/or counseling patient: Coding Level of Care Code 96906 SUB INP/OBS CARE 12/15MIN Diagnoses Acute on chronic combined systolic and diastolic CHF (congestive heart failure) I50.43 Fracture of distal end of right femur S72.401A Adjustment disorder with depressed mood F43.21 Type 2 diabetes mellitus E11.9 Weakness R53.1 Hypothyroidism (acquired) E03.9 CKD stage 4 due to type 2 diabetes mellitus E11.22; N18.4 GERD (gastroesophageal reflux disease) K21.9 Anxiety F41.9 Morbid obesity with BMI of 60.0-69.9, adult E66.01; Z68.44 Tracheostomy dependence Z93.0 Poor social situation Z65.9 DVT prophylaxis Z29.9
[2023-01-08] MEDS: LEVOTHYROXINE SODIUM 25 MCG TABLET PO SCH (06:01)
[2023-01-08] MEDS: PANTOprazole 40 MG TAB PO SCH (06:01)
[2023-01-08] MEDS: LEVOTHYROXINE SODIUM 200 MCG TABLET PO SCH (06:01)
[2023-01-08] MEDS: ALBUT/IPRATROP 3MG/0.5MG NEB 3 ML VIAL NEB PRN ×2 (07:19→15:29)
[2023-01-08 07:24] LABS: BUN Creatinine Ratio 21.3 (10-20); Calcium 9.3 mg/dl (8.5-10.1); Creatinine Clr Calc Pharmacy 47.3 ml/min; Est GFR (African American) 34.8 ml/min; Potassium 3.9 mmol/L (3.5-5.1)
[2023-01-08] MEDS ORDERED: TORSEMIDE 10 MG TAB PO STA (09:02)
[2023-01-08] MEDS: INSULIN, Rapid-Acting PUMP SCH ×4 (10:14→21:30)
[2023-01-08] MEDS: DICLOFENAC SOD 1% GEL 100 GM TUBE EXT SCH ×4 (10:14→21:31)
[2023-01-08] MEDS: ENOXAPARIN INJ 40 MG/0.4 ML SYR SQ SCH ×2 (10:14→21:27)
[2023-01-08] MEDS: ISOSORBIDE MONO EXTENDED REL 30 MG TABCR PO SCH (10:15)
[2023-01-08] MEDS: SPIRONOLACTONE 25 MG TAB PO SCH (10:15)
[2023-01-08] MEDS: EMPAGLIFLOZIN 10 MG TAB PO SCH (10:15)
[2023-01-08] MEDS: METOPROLOL TARTRATE 25 MG TAB PO SCH ×2 (10:16→21:30)
[2023-01-08] MEDS: TOPIRAMATE 100 MG TAB PO SCH (10:16)
[2023-01-08] MEDS: SERTRALINE HCL 50 MG TABLET PO SCH (10:16)
[2023-01-08] MEDS: FOLIC ACID 1 MG TAB PO SCH (10:17)
[2023-01-08] MEDS: MAGNESIUM OXIDE 400 MG TAB PO SCH (10:17)
[2023-01-08] MEDS: DOCUSATE SODIUM 100 MG CAP PO SCH ×2 (10:18→21:30)
[2023-01-08] MEDS: buPROPion SR 100 MG TABCR PO SCH ×2 (10:19→21:30)
[2023-01-08] MEDS: CALCIUM CITRATE 950 MG TAB PO SCH (13:12)
--- NOTE | 2023-01-08 20:18 | Hospitalist Progress Note ---
Date of Service January 08, 2023 Assessment & Plan (1) Acute on chronic combined systolic and diastolic CHF (congestive heart failure): Plan: Decompensation improved/resolved with additional diuresis last few days. Resume once daily torsemide 20mg qam. BMPs stable. Continue spironolactone, metoprolol, isosorbide mononitrate, ASA, atorvastatin. Last echo - 09/2022 with EF 45-50%. 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 Most recent x-rays (11/28/22) with some callus formation over fracture site. Cont nonoperative management. TTWB allowed by Dr Contreras to RLE as of 11/29/22. Pt prefers total non-weightbearing to the RLE, however. Pain regimen -- Cont tylenol 1gm TID. Cont oxy 10mg q4h prn. Cont voltaren gel qid. (3) Adjustment disorder with depressed mood: Plan: stable, much improved. cont zoloft 50mg daily. This was started 11/28/22. Some of her recent weight gain could be SSRI related. cont wellbutrin 100mg qam + wellbutrin 200mg qhs cont topamax 100mg qam + 200mg qhs previous TSH, B12, 25-OH vit D levels -- all wnl (4) Type 2 diabetes mellitus: Plan: On insulin pump with ongoing excellent readings (<200 all times). Most recent a1c = 7.2% in 10/2022. Cont jardiance. (5) Weakness: Plan: Improved with PT/OT while here. Continue Rx of depression. SNF for rehab highly advised by numerous providers. (6) Hypothyroidism (acquired): Plan: Continue Levothyroxine. TSH 1.1 on 10/22/22. (7) CKD stage 4 due to type 2 diabetes mellitus: Plan: Baseline creatinine 1.3-1.8. Cr 1.7 once again today. Stable. (8) GERD (gastroesophageal reflux disease): Plan: Continue protonix (9) Anxiety: Plan: cont zoloft 50mg daily (10) Morbid obesity with BMI of 60.0-69.9, adult: Plan: BMI 64 (11) Tracheostomy dependence: Plan: for RASHAAD/OHS cont routine trach care no issues (12) Poor social situation: Plan: her prolonged hospital stay is due to disposition difficulties she was previously at [facility] - refuses to go back there she refuses to attend another SNF or go out of the [facility] for placement she wishes to go home with caregivers/HH refuses acute inpatient rehab ([facility], etc) by report has a large # of hours (90 by report) approved for in-home personal care; however, finding caregivers has been severely problematic social work at [facility] have spent MONTHS trying to secure caregivers without any success social work here continues to work with her outpatient correctional casework specialist to find caregivers further, she needs a ramp built to be able to enter her home she also needs her entryway door widened to accommodate a large wheelchair at this point we are pursuing SNF placement - NUMEROUS REFERRALS have been made (see list in most recent case management notes); waiting to hear back from facilities (13) DVT prophylaxis: Plan: lovenox 40mg BID due to extreme morbid obesity Plan at her request will d/c AHA diet so she can have regular coffee leave fluid restriction 2000cc/day in place Admission and Anticipated Discharge Date Admission Date: October 01, 2022 Subjective upset about not being allowed coffee or vaughn for breakfast or "dippy eggs" upset about fluid restriction breathing IS better s/p extra diuresis last few days no further wheezing no other new complaints Review of Systems Review of Systems: pulm - dyspnea and wheezing improved; occasional cough GI - no N/V CV - no chest tightness Physical Exam Physical Exam: gen - morbidly obese, NAD, sitting in chair comfortably anterior neck - metal trach clean, no drainage; unable to assess for JVD due to neck size mouth - MMM, no thrush heart - RRR, s1 s2, no murmur; heart tones distant lungs - minimal dry crackles bases - improved; wheezes resolved ext - trace edema of feet b/l, pulses 2+ b/l psych - a/o x 3 Results & Data Results & Data ([facility]) Vital Signs (Past 12 Hours) Vital Signs Temp Pulse Resp BP Pulse Ox O2 Del Method 01/08/23 19:14 81 20 92 Room Air 01/08/23 15:30 75 18 94 Trach Collar 01/08/23 14:47 36.5 C 67 16 129/67 94 Room Air 01/08/23 08:45 Room Air 02/18/23 10:22 72 116/67 Laboratory Results Laboratory Results - last 24 hr 01/07/23 01/08/23 01/08/23 20:33 06:29 06:29 Sodium 139 Potassium 3.9 Chloride 105 Carbon Dioxide 28 Anion Gap 6 BUN 37 H Creatinine 1.74 H Est Cr Clr Drug Dosing 47.3 Est GFR ( Amer) 34.8 Est GFR (Non-Af Amer) 30.0 BUN/Creatinine Ratio 21.3 H Glucose 115 H POC Glucose 129 H Calcium 9.3 B-Natriuretic Peptide 01/08/23 01/08/23 01/08/23 08:07 12:02 17:14 Sodium Potassium Chloride Carbon Dioxide Anion Gap BUN Creatinine Est Cr Clr Drug Dosing Est GFR ( Amer) Est GFR (Non-Af Amer) BUN/Creatinine Ratio Glucose POC Glucose 113 H 163 H 104 H Calcium B-Natriuretic Peptide PG Care Time/CCT Total # of Minutes Spent Total Time Spent with Patient: Total time spent is greater than 50% in coordination of care (as documented) at patient's floor/unit and/or counseling patient: Coding Level of Care Code 57412 SUB INP/OBS CARE 12/15MIN Diagnoses Acute on chronic combined systolic and diastolic CHF (congestive heart failure) I50.43 Fracture of distal end of right femur S72.401A Adjustment disorder with depressed mood F43.21 Type 2 diabetes mellitus E11.9 Weakness R53.1 Hypothyroidism (acquired) E03.9 CKD stage 4 due to type 2 diabetes mellitus E11.22; N18.4 GERD (gastroesophageal reflux disease) K21.9 Anxiety F41.9 Morbid obesity with BMI of 60.0-69.9, adult E66.01; Z68.44 Tracheostomy dependence Z93.0 Poor social situation Z65.9 DVT prophylaxis Z29.9
[2023-01-08] MEDS: ATORVASTATIN 40 MG TAB PO SCH (21:30)
[2023-01-08] MEDS: MELATONIN 3 MG TAB PO SCH (21:30)
[2023-01-08] MEDS: oxyCODONE HCL IR 5 MG TAB (IMMEDIATE RELEASE) PO PRN (21:35)
[2023-01-09] MEDS: TORSEMIDE 20 MG TAB PO SCH (05:51)
[2023-01-09] MEDS: LEVOTHYROXINE SODIUM 200 MCG TABLET PO SCH (05:51)
[2023-01-09] MEDS: LEVOTHYROXINE SODIUM 25 MCG TABLET PO SCH (05:51)
[2023-01-09] MEDS: PANTOprazole 40 MG TAB PO SCH (05:51)
[2023-01-09] MEDS: ALBUT/IPRATROP 3MG/0.5MG NEB 3 ML VIAL NEB PRN ×2 (07:47→15:25)
[2023-01-09] MEDS: DICLOFENAC SOD 1% GEL 100 GM TUBE EXT SCH ×4 (09:05→21:25)
[2023-01-09] MEDS: ENOXAPARIN INJ 40 MG/0.4 ML SYR SQ SCH ×2 (09:05→21:26)
[2023-01-09] MEDS: SERTRALINE HCL 50 MG TABLET PO SCH (09:06)
[2023-01-09] MEDS: FOLIC ACID 1 MG TAB PO SCH (09:06)
[2023-01-09] MEDS: ISOSORBIDE MONO EXTENDED REL 30 MG TABCR PO SCH (09:06)
[2023-01-09] MEDS: buPROPion SR 100 MG TABCR PO SCH ×2 (09:07→21:25)
[2023-01-09] MEDS: SPIRONOLACTONE 25 MG TAB PO SCH (09:07)
[2023-01-09] MEDS: METOPROLOL TARTRATE 25 MG TAB PO SCH ×2 (09:07→21:25)
[2023-01-09] MEDS: EMPAGLIFLOZIN 10 MG TAB PO SCH (09:07)
[2023-01-09] MEDS: MAGNESIUM OXIDE 400 MG TAB PO SCH (09:07)
[2023-01-09] MEDS: TOPIRAMATE 100 MG TAB PO SCH (09:07)
[2023-01-09] MEDS: DOCUSATE SODIUM 100 MG CAP PO SCH ×2 (09:08→21:25)
[2023-01-09] MEDS: INSULIN, Rapid-Acting PUMP SCH ×4 (09:10→21:26)
[2023-01-09] MEDS: CALCIUM CITRATE 950 MG TAB PO SCH (13:04)
--- NOTE | 2023-01-09 20:36 | Hospitalist Progress Note ---
Date of Service January 09, 2023 Assessment & Plan (1) Acute on chronic combined systolic and diastolic CHF (congestive heart failure): Plan: Decompensation improved/resolved with additional diuresis last few days. Resumed once daily torsemide 20mg qam. BMPs stable. Weight did drop about 8-9 pounds with extra diuresis late last week. Continue spironolactone, metoprolol, isosorbide mononitrate, ASA, atorvastatin. Last echo - 09/2022 with EF 45-50%. (2) Chronic obstructive pulmonary disease: Plan: Patient carries dx of such and has seen out of town pulmonary in the past. Given her increased trach secretions and mild wheezing will place on scheduled duonebs QID. She may need CXR if these symptoms persist. Defer on abx for now unless secretions turn purulent or cxr shows focal inf iltrates. The current symptoms could all be from #1 above but COPD certainly is possible as well. In addition to scheduled Duonebs place on Pulmicort nebs 0.5mg BID scheduled. 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 Most recent x-rays (11/28/22) with some callus formation over fracture site. Cont nonoperative management. TTWB allowed by Dr Contreras to RLE as of 11/29/22. Pt prefers total non-weightbearing to the RLE, however. Pain regimen -- Cont tylenol 1gm TID. Cont oxy 10mg q4h prn. Cont voltaren gel qid. (4) Adjustment disorder with depressed mood: Plan: stable, much improved. cont zoloft 50mg daily. This was started 11/28/22. Some of her recent weight gain could be SSRI related. cont wellbutrin 100mg qam + wellbutrin 200mg qhs cont topamax 100mg qam + 200mg qhs previous TSH, B12, 25-OH vit D levels -- all wnl (5) Type 2 diabetes mellitus: Plan: On insulin pump with ongoing excellent readings (<200 all times). Most recent a1c = 7.2% in 10/2022. Cont jardiance. (6) Weakness: Plan: Improved with PT/OT while here. Continue Rx of depression. SNF for rehab highly advised by numerous providers. Patient unable to perform self tasks such as toileting, bathing, etc without considerable assistance. (7) Hypothyroidism (acquired): Plan: Continue Levothyroxine. TSH 1.1 on 10/22/22. (8) CKD stage 4 due to type 2 diabetes mellitus: Plan: Baseline creatinine 1.3-1.8. Cr 1.7 this weekend. Stable. (9) GERD (gastroesophageal reflux disease): Plan: Continue protonix (10) Anxiety: Plan: cont zoloft 50mg daily (11) Morbid obesity with BMI of 60.0-69.9, adult: Plan: BMI 64 (12) Tracheostomy dependence: Plan: for RASHAAD/OHS cont routine trach care no issues see #2 above (13) Poor social situation: Plan: her prolonged hospital stay is due to disposition difficulties she was previously at [facility] - refuses to go back there she refuses to attend another SNF or go out of the [facility] for [place] she wishes to go home with caregivers/HH refuses acute inpatient rehab ([facility], etc) by report has a large # of hours (90 by report) approved for in-home personal care; however, finding caregivers has been severely problematic social work at [facility] have spent MONTHS trying to secure caregivers without any success social work here continues to work with her outpatient telephonic case manager to find caregivers further, she needs a ramp built to be able to enter her home she also needs her entryway door widened to accommodate a large wheelchair at this point we are pursuing SNF placement - NUMEROUS REFERRALS have been made (see list in most recent case management notes); waiting to hear back from facilities (14) DVT prophylaxis: Plan: lovenox 40mg BID due to extreme morbid obesity Plan at her request AHA diet was discontinued; she can have regular coffee leave fluid restriction 2000cc/day in place however to maintain net negative fluid balance daily given her CHF Admission and Anticipated Discharge Date Admission Date: October 01, 2022 Subjective no new complaints or issues her breathing is improved from last week does note a little wheezing at times she also has had a little more sputum production via her trach in comparison to baseline she typically has sputum every am consistently, but has had a bit more throughout the day the last few days mentions that her landscape photographer in 2020 or 2021 had placed her on zithromax 3 days/week for chronic bronchitis issues pharmacy records reviewed -- has not had zithromax as such since early 2021 eating / drinking fine chronic right knee pain about the same BSGs well controlled on her flowsheets did have BM today Review of Systems Review of Systems: gen - feeling ok, does not feel ill despite the wheezing cv - no cp pulm - BARGER is at baseline GI - no abd pain; no N/V Physical Exam Physical Exam: gen - morbidly obese, NAD, sitting in bed comfortably anterior neck - metal trach clean, no drainage; unable to assess for JVD due to neck size mouth - MMM, no thrush heart - RRR, s1 s2, no murmur; heart tones distant lungs - minimal dry crackles bases - improved; right basilar wheeze - partially cleared with coughing ext - trace edema of feet b/l, pulses 2+ b/l psych - a/o x 3 Results & Data Results & Data ([facility]) Vital Signs (Past 12 Hours) Vital Signs Temp Pulse Resp BP Pulse Ox O2 Del Method 01/09/23 20:15 Room Air 01/09/23 15:25 66 20 93 Room Air 01/09/23 15:01 36.6 C 65 16 122/65 93 Room Air 01/09/23 09:01 72 132/73 Laboratory Results Laboratory Results - last 24 hr 01/08/23 01/09/23 01/09/23 20:36 08:01 12:03 POC Glucose 122 H 88 99 01/09/23 01/09/23 17:06 20:32 POC Glucose 100 H 121 H PG Care Time/CCT Total # of Minutes Spent Total Time Spent with Patient: Total time spent is greater than 50% in coordination of care (as documented) at patient's floor/unit and/or counseling patient: Coding Level of Care Code 55812 SUB INP/OBS CARE 2/35MIN Diagnoses Acute on chronic combined systolic and diastolic CHF (congestive heart failure) I50.43 Chronic obstructive pulmonary disease J44.9 COPD type: unspecified COPD Fracture of distal end of right femur S72.401A Adjustment disorder with depressed mood F43.21 Type 2 diabetes mellitus E11.9 Weakness R53.1 Hypothyroidism (acquired) E03.9 CKD stage 4 due to type 2 diabetes mellitus E11.22; N18.4 GERD (gastroesophageal reflux disease) K21.9 Anxiety F41.9 Morbid obesity with BMI of 60.0-69.9, adult E66.01; Z68.44 Tracheostomy dependence Z93.0 Poor social situation Z65.9 DVT prophylaxis Z29.9 (2) Chronic obstructive pulmonary disease COPD type: unspecified COPD Qualified Code(s): J44.9 - Chronic obstructive pulmonary disease, unspecified
[2023-01-09] MEDS: ALBUT/IPRATROP 3MG/0.5MG NEB 3 ML VIAL NEB SCH (20:46)
[2023-01-09] MEDS: MELATONIN 3 MG TAB PO SCH (21:25)
[2023-01-09] MEDS: ATORVASTATIN 40 MG TAB PO SCH (21:25)
[2023-01-09] MEDS: oxyCODONE HCL IR 5 MG TAB (IMMEDIATE RELEASE) PO PRN (21:33)
[2023-01-10] MEDS: PANTOprazole 40 MG TAB PO SCH (06:02)
[2023-01-10] MEDS: LEVOTHYROXINE SODIUM 25 MCG TABLET PO SCH (06:02)
[2023-01-10] MEDS: LEVOTHYROXINE SODIUM 200 MCG TABLET PO SCH (06:02)
[2023-01-10] MEDS: TORSEMIDE 20 MG TAB PO SCH ×2 (06:02→22:19)
[2023-01-10] MEDS: ALBUT/IPRATROP 3MG/0.5MG NEB 3 ML VIAL NEB SCH ×4 (07:25→19:50)
[2023-01-10] MEDS: BUDESONIDE 0.5 MG/2 ML VIAL (PULMICORT) NEB SCH ×2 (07:25→19:51)
[2023-01-10] MEDS: ENOXAPARIN INJ 40 MG/0.4 ML SYR SQ SCH ×2 (08:53→21:50)
[2023-01-10] MEDS: DICLOFENAC SOD 1% GEL 100 GM TUBE EXT SCH ×4 (08:53→21:50)
[2023-01-10] MEDS: DOCUSATE SODIUM 100 MG CAP PO SCH ×2 (08:54→21:53)
[2023-01-10] MEDS: EMPAGLIFLOZIN 10 MG TAB PO SCH (08:54)
[2023-01-10] MEDS: buPROPion SR 100 MG TABCR PO SCH ×2 (08:54→21:49)
[2023-01-10] MEDS: MAGNESIUM OXIDE 400 MG TAB PO SCH (08:54)
[2023-01-10] MEDS: SPIRONOLACTONE 25 MG TAB PO SCH (08:54)
[2023-01-10] MEDS: TOPIRAMATE 100 MG TAB PO SCH (08:55)
[2023-01-10] MEDS: INSULIN, Rapid-Acting PUMP SCH ×4 (08:55→21:48)
[2023-01-10] MEDS: ISOSORBIDE MONO EXTENDED REL 30 MG TABCR PO SCH (08:55)
[2023-01-10] MEDS: FOLIC ACID 1 MG TAB PO SCH (08:55)
[2023-01-10] MEDS: METOPROLOL TARTRATE 25 MG TAB PO SCH ×2 (08:55→21:49)
--- NOTE | 2023-01-10 11:52 | Hospitalist Progress Note ---
Date of Service January 10, 2023 Assessment & Plan (1) Acute on chronic combined systolic and diastolic CHF (congestive heart failure): Plan: Decompensation present on admission has resolved with additional diuresis. Resumed once daily torsemide 20mg qam. Weight did drop about 8-9 pounds with extra diuresis late last week. Continue spironolactone, metoprolol, isosorbide mononitrate, ASA, atorvastatin. Last echo - 09/2022 with EF 45-50%. (2) Chronic obstructive pulmonary disease: Plan: Treated with DuoNebs. Chronic suppressive therapy with azithromycin has been restarted today, January 10. 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 Most recent x-rays (11/28/22) with some callus formation over fracture site. Cont nonoperative management. TTWB allowed by Dr Contreras to RLE as of 11/29/22. Pt prefers total non-weightbearing to the RLE, however. Continue pain control measures (4) Adjustment disorder with depressed mood: Plan: stable. Treated with Zoloft, Wellbutrin, Topamax. (5) Type 2 diabetes mellitus: Plan: On insulin pump with stable and acceptable readings (<200 all times). Most recent a1c = 7.2% in 10/2022. Cont jardiance. (6) Weakness: Plan: Improved with PT/OT while here. Supportive care. (7) Hypothyroidism (acquired): Plan: Continue Levothyroxine. TSH 1.1 on 10/22/22. (8) CKD stage 4 due to type 2 diabetes mellitus: Plan: Baseline creatinine 1.3-1.8. onitor intake and output. Serial labs (9) GERD (gastroesophageal reflux disease): Plan: Continue protonix. Stable (10) Anxiety: Plan: cont zoloft 50mg daily . Stable (11) Morbid obesity with BMI of 60.0-69.9, adult: Plan: BMI 64. Weight loss recommended (12) Tracheostomy dependence: Plan: for RASHAAD/OHS. Cont routine trach care (13) Poor social situation: Plan: her prolonged hospital stay is due to disposition difficulties. She was previously at [facility] - refuses to go back there or attend another SNF or go out of the [facility] for placement . She wishes to go home with caregivers/HH. Refuses acute inpatient rehab ([facility], etc). By report she has a 90 hours approved for in-home personal care; however, finding caregivers has been severely problematic. Social workers at [facility] have spent MONTHS trying to secure caregivers without any success. Furthermore, she needs a ramp built to be able to enter her home which actually is a trailer and she also needs her entryway door widened to accommodate a large wheelchair . At this point we are pursuing SNF placement -numerous referrals have been made by case management. (14) DVT prophylaxis: Plan: lovenox 40mg BID, due to extreme morbid obesity Plan at her request the AHA diet was discontinued; she can have regular coffee. We will continue fluid restriction 2000cc/day to maintain net negative fluid balance daily given her history of CHF . Anticipate eventual discharge to an SNF facility when arrangements are finalized Admission and Anticipated Discharge Date Admission Date: October 01, 2022 Subjective Alert and oriented. No acute distress. She is asking for her azithromycin tablets which she takes every Tuesday and Tuesday for chronic suppressive therapy. She is also asking for her Zoloft to be restarted which she takes on a daily basis at home. Review of Systems Review of Systems: Constitutional-no fever or chills ENT-no blurred vision, no double vision, no epistaxis, no sore throat Respiratory-no cough, no wheezing, no shortness of breath Cardiac-no palpitations, no chest pain, no syncope GI-no nausea, vomiting, diarrhea, melena, hematochezia -no urinary retention, no urinary incontinence, no dysuria, no hematuria Musculoskeletal-no joint pain, no muscle tenderness Skin-no bruising, no rashes, no pruritus Neuro-no isolated weakness, no paresthesia, no weakness Psych-no depression, no anxiety Physical Exam Physical Exam: General-alert and oriented x3, no fevers, no chills HEENT-head atraumatic and normocephalic, pupils equal and reactive to light, extraocular muscles intact Neck-no lymphadenopathy or thyromegaly, trachea midline with permanent tracheostomy in place Chest-diminished breath sounds bilaterally. No audible wheezing Cardiac-regular rate and rhythm, normal S1 and S2 Abdomen-normal bowel sounds, nontender, no hepatosplenomegaly Extremities-no cyanosis, clubbing, or edema Neuro-cranial nerves II through XII intact, motor and sensory function within normal limits, strength symmetrical , no focal deficits Psych-normal affect, normal mood Results & Data Results & Data ([facility]) Vital Signs (Past 12 Hours) Vital Signs Temp Pulse Resp BP Pulse Ox O2 Del Method 01/10/23 11:05 71 20 92 Room Air 01/10/23 09:00 Room Air 01/10/23 08:52 76 123/77 01/10/23 07:51 36.5 C 71 16 154/78 H 94 Room Air 01/10/23 07:35 68 20 91 Room Air Laboratory Results 12/28/22 09:45 01/08/23 06:29 PG Care Time/CCT Total # of Minutes Spent Total Time Spent with Patient: Total time spent is greater than 50% in coordination of care (as documented) at patient's floor/unit and/or counseling patient: Coding Level of Care Code 47643 SUB INP/OBS CARE 3/50MIN Diagnoses Acute on chronic combined systolic and diastolic CHF (congestive heart failure) I50.43 Chronic obstructive pulmonary disease J44.9 COPD type: unspecified COPD Fracture of distal end of right femur S72.401A Adjustment disorder with depressed mood F43.21 Type 2 diabetes mellitus E11.9 Weakness R53.1 Hypothyroidism (acquired) E03.9 CKD stage 4 due to type 2 diabetes mellitus E11.22; N18.4 GERD (gastroesophageal reflux disease) K21.9 Anxiety F41.9 Morbid obesity with BMI of 60.0-69.9, adult E66.01; Z68.44 Tracheostomy dependence Z93.0 Poor social situation Z65.9 DVT prophylaxis Z29.9 (2) Chronic obstructive pulmonary disease COPD type: unspecified COPD Qualified Code(s): J44.9 - Chronic obstructive pulmonary disease, unspecified
[2023-01-10] MEDS ORDERED: AZITHROMYCIN 250 MG TAB PO SCH (12:00)
[2023-01-10] MEDS: CALCIUM CITRATE 950 MG TAB PO SCH (13:34)
[2023-01-10] MEDS: MELATONIN 3 MG TAB PO SCH (21:50)
[2023-01-10] MEDS: ATORVASTATIN 40 MG TAB PO SCH (21:50)
[2023-01-11] MEDS: oxyCODONE HCL IR 5 MG TAB (IMMEDIATE RELEASE) PO PRN (00:53)
[2023-01-11] MEDS: LEVOTHYROXINE SODIUM 200 MCG TABLET PO SCH (05:31)
[2023-01-11] MEDS: PANTOprazole 40 MG TAB PO SCH (05:31)
[2023-01-11] MEDS: LEVOTHYROXINE SODIUM 25 MCG TABLET PO SCH (05:31)
[2023-01-11] MEDS: BUDESONIDE 0.5 MG/2 ML VIAL (PULMICORT) NEB SCH (06:57)
[2023-01-11] MEDS: ALBUT/IPRATROP 3MG/0.5MG NEB 3 ML VIAL NEB SCH (06:58)
[2023-01-11] MEDS: METOPROLOL TARTRATE 25 MG TAB PO SCH (08:08)
[2023-01-11] MEDS: DOCUSATE SODIUM 100 MG CAP PO SCH (08:09)
[2023-01-11] MEDS: MAGNESIUM OXIDE 400 MG TAB PO SCH (08:10)
[2023-01-11] MEDS: TOPIRAMATE 100 MG TAB PO SCH (08:10)
[2023-01-11] MEDS: FOLIC ACID 1 MG TAB PO SCH (08:10)
[2023-01-11] MEDS: EMPAGLIFLOZIN 10 MG TAB PO SCH (08:10)
[2023-01-11] MEDS: buPROPion SR 100 MG TABCR PO SCH (08:11)
[2023-01-11] MEDS: ISOSORBIDE MONO EXTENDED REL 30 MG TABCR PO SCH (08:11)
[2023-01-11] MEDS: ENOXAPARIN INJ 40 MG/0.4 ML SYR SQ SCH (08:13)
[2023-01-11] MEDS: DICLOFENAC SOD 1% GEL 100 GM TUBE EXT SCH (08:13)
[2023-01-11] MEDS: SPIRONOLACTONE 25 MG TAB PO SCH (08:14)
[2023-01-11] MEDS ORDERED: SERTRALINE HCL 50 MG TABLET PO SCH (09:00)
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
[2023-01-11] MEDS: INSULIN, Rapid-Acting PUMP SCH (09:50)
== END 2023-01-11 11:13 | disposition home health service (06) | DRG 292 ==
LOC: ED 15:30 → 2W 20:08 → SUATTDRO 20:08 → 2W 21:09 → 3N 10-03 17:51 → 3W 10-12 18:41

== ENCOUNTER 2023-01-24 12:57 | Inpatient (IN) ==
--- NOTE | 2023-01-24 13:44 | Emergency Department Note ---
Impression & Plan Generalized weakness, Ambulatory dysfunction ED Provider Note HISTORY OF PRESENT ILLNESS: Patient is a 67-year-old female presenting with generalized weakness. Patient reports that she has slid out of her recliner multiple times over the last few weeks secondary to generalized weakness. She lives home alone. She reports that she was evaluated by a physical therapist to recommended evaluation in the emergency department for placement for more aggressive rehab. Patient feels like she cannot care for herself at home. Denies striking her head with the falls out of her recliner. Reports that she slipped out of her recliner earlier today and landed on her buttocks. Denies any complaints at this time. Denies any chest pain or shortness of breath. Denies any numbness or tingling down her legs. ROS: as above PHYSICAL EXAM: Constitutional: Patient appears in no acute distress. Morbidly obese HENT: Head: Normocephalic and atraumatic. Eyes: EOMI, PERRL Mouth/Throat: Mucous membranes moist. Neck: Trachea midline. Neck supple. Tracheostomy in place. Cardiovascular: RRR, No murmurs, rubs or gallops. Intact distal pulses. Pulmonary/Chest: No respiratory distress. Breath sounds clear and equal bilaterally. No wheezes or rales. Abdominal: BS +. Abdomen soft, no tenderness, rebound or guarding. Back: No midline spinal tenderness, no paraspinal tenderness, no CVA tendernes s. Musculoskeletal: No edema, tenderness or deformity noted. Skin: Warm and dry. No rash, erythema, pallor or cyanosis Psychiatric: Appropriate mood and affect for situation. Neurological: Alert and keenly responsive. CN II-XII grossly intact, moving all extremities equally and fully. MDM: - Vitals signs stable. - History obtained via patient. Patient presents with generalized weakness. Patient reports that she has slid out of her recliner multiple times in the last few weeks secondary to weakness. She lives home alone. Denies striking her head or loss of consciousness. She denies any physical complaints at this time. Denies any chest pain or shortness of breath. She slid out of her recliner earlier today and landed on her buttocks, prompting her to call 911 as she was unable to get up off the ground - Chronic conditions affecting care: CKD; CHF; HTN; DM-2 - Differential diagnoses include, but are not limited to: UTI; pneumonia; deconditioning; trauma - Order placed for continuous cardiac monitoring. At this time, monitor showed rate of 78 bpm with normal sinus rhythm, per my interpretation. - External medical records reviewed. EMS run sheet reviewed. Patient remained vitally stable in route. No medications given prehospital. - Basic laboratory workup ordered for admission. Considered obtaining xray imaging of the hip, but patient reports that she has no new pain just her chronic right leg pain from her previous fracture - Discussion was had with social research assistant about patient's case and need for admission. - Hospitalist, Dr. Smiley, consulted for admission. - Patient admitted to [facility] for further evaluation and management. ASSESSMENT AND PLAN: Diagnosis: generalized weakness; ambulatory dysfunction Plan: admit Past Med/Surg History Medical History (Updated 01/24/23 @ 20:34 by Vidya Irby MD) Advanced care planning/counseling discussion Ambulatory dysfunction Breathlessness Chest pain CHF (congestive heart failure) CKD stage 4 due to type 2 diabetes mellitus Dyslipidemia Fluid overload HTN (hypertension) Insulin-requiring or dependent type II diabetes mellitus MRSA (methicillin resistant staph aureus) culture positive "sputum 11/2015" Palliative care encounter Right ventricular dysfunction Sepsis Vitamin D deficiency Surgical History History of appendectomy History of cholecystectomy History of hysterectomy History of tonsillectomy and adenoidectomy S/P IVC filter Family History Mother Coronary heart disease COPD (chronic obstructive pulmonary disease) Father Suicide Hung himself. Pt found him. Unknown Lung cancer Social History Smoking Status: Never smoker Tobacco Type: Cigarettes Second Hand Exposure: No; Hx Alcohol Use: No Hx Substance Use: No Preferred Language: Amharic Communication Ability: Effective Visual Impairment: Limited Professional Architect Required: No Beliefs That Will Affect Care: Rastafari marital status: Current Living Situation: Snf Current Living Situation Comment: came from [facility] doesn't want to go back current occupational status: disabled How many Children do You have: 1 Feels Safe at Home: No Is there a partner from a previous relationship who is making you feel unsafe now?: No Assistive Devices: Bedside Commode, Hospital Bed, Oxygen - at Night, Walker, Wheelchair and Other Allergies Allergies Allergy/AdvReac Type Severity Reaction Status Date / Time Penicillins Allergy Intermediate Hives Verified 10/01/22 19:48 amitriptyline Allergy Unknown ON EMBASSY Verified 10/01/22 19:48 OF HEARTHSIDE MED LIST doxycycline Allergy Unknown ON EMBASSY Verified 10/01/22 19:48 OF HEARTHSIDE MED LIST guaifenesin Allergy Unknown ON EMBASSY Verified 10/01/22 19:48 OF HEARTHSIDE MED LIST metformin Allergy Unknown ON EMBASSY Verified 10/01/22 19:48 OF HEARTHSIDE MED LIST phenylephrine Allergy Unknown ON EMBASSY Verified 10/01/22 19:48 OF HEARTHSIDE MED LIST pseudoephedrine Allergy Unknown ON EMBASSY Verified 10/01/22 19:48 OF HEARTHSIDE MED LIST tetracycline Allergy Unknown ON EMBASSY Verified 10/01/22 19:48 OF HEARTHSIDE MED LIST venlafaxine [From Effexor] Allergy Unknown ON EMBASSY Verified 10/01/22 19:48 OF HEARTHSIDE MED LIST gabapentin AdvReac Intermediate BECOMES Verified 10/01/22 19:48 AGGRESSIVE Home Meds Home Medications Medication Instructions Recorded Confirmed aspirin 81 mg tablet,delayed 81 mg PO QAM 04/06/19 01/24/23 release (Robert Low Dose Aspirin) multivitamin 1 tab PO QAM 04/06/19 01/24/23 ipratropium 0.5 mg-albuterol 3 mg 3 ml inhalation Q4H PRN COUGHING, 02/27/21 01/24/23 (2.5 mg base)/3 mL nebulization WHEEZING, SHORTNESS OF BREATH soln docusate sodium 100 mg capsule 100 mg PO BID 10/01/22 01/24/23 Previous Rx's Medication Instructions Recorded blood sugar diagnostic (Contour #[id number] ea 09/29/21 Next Test Strips) Calcium Citrate [Citracal] 950 mg PO DAILY@1200 #30 tabs 01/11/23 albuterol sulfate 90 mcg/actuation 2 puff inhalation Q4 PRN Shortness 01/11/23 aerosol inhaler Of Breath #6.7 grams atorvastatin 40 mg tablet 40 mg PO QPM #90 tabs 01/11/23 azithromycin 250 mg tablet 250 mg PO MoWeFr@0900 #20 tabs 01/11/23 bupropion HCl 100 mg tablet,12 hr 100 mg PO QAM #30 ea 01/11/23 sustained-release bupropion HCl 100 mg tablet,12 hr 200 mg PO PM #30 ea 01/11/23 sustained-release diclofenac sodium 1 % topical gel 4 g EXT QID #30 grams 01/11/23 (Voltaren Arthritis Pain) docusate sodium 100 mg capsule 100 mg PO BID #60 caps 01/11/23 empagliflozin 10 mg tablet 10 mg PO QAM #30 tabs 01/11/23 (Jardiance) folic acid 1 mg tablet 1 mg PO QAM #30 tabs 01/11/23 insulin aspart U-100 100 unit/mL 1 ea Not Applicable ACHS #30 mL 01/11/23 subcutaneous solution (Novolog U-100 Insulin aspart) ipratropium 20 mcg-albuterol 100 1 puff inhalation QID #4 grams 01/11/23 mcg/actuation mist for inhalation (Combivent Respimat) isosorbide mononitrate 30 mg 30 mg PO QAM #30 tabs 01/11/23 tablet,extended release 24 hr levothyroxine 200 mcg tablet 200 mcg PO DAILYBB #30 tabs 01/11/23 levothyroxine 25 mcg tablet 25 mcg PO DAILYBB #30 tabs 01/11/23 magnesium oxide 400 mg PO QAM #30 tabs 01/11/23 melatonin 3 mg tablet 6 mg PO HS #30 tabs 01/11/23 metoprolol tartrate 25 mg tablet 12.5 mg PO BID #60 tabs 01/11/23 nitroglycerin 0.4 mg sublingual 0.4 mg sublingual DIRECTED PRN 01/11/23 tablet Chest Pain #25 tabs oxycodone 10 mg tablet 10 mg PO Q6H PRN pain #30 tabs 01/11/23 pantoprazole 40 mg tablet,delayed 40 mg PO DAILYBB #3 tabs 01/11/23 release potassium chloride 20 mEq 20 meq PO BID #60 tabs 01/11/23 tablet,extended release sertraline 50 mg tablet 50 mg PO QAM #30 tabs 01/11/23 spironolactone 25 mg tablet 25 mg PO QAM #30 tabs 01/11/23 topiramate 100 mg tablet 100 mg PO QAM #30 tabs 01/11/23 torsemide 10 mg tablet 10 mg PO BID #60 tabs 01/11/23 Results & Data (ED) Vital Signs Vital Signs - 24 hr 01/24/23 13:05 01/24/23 13:07 01/24/23 12:59 Temperature 36.5 C Temperature Source Oral Pulse Rate 76 75 75 Pulse Rate from SpO2 Sensor 75 Respiratory Rate 18 19 Respiratory Effort / Characteristics Non-Labored Spontaneous Respiratory Depth Normal Blood Pressure 139/73 Blood Pressure Mean 95 Blood Pressure Position Sitting Pulse Oximetry 97 97 Oxygen Delivery Method Room Air Sepsis Recent Fever Within 48 Hours No Sepsis New/Unexplained Change in Mental Status N/A Sepsis Action Taken by Nursing No Action Required 01/24/23 13:00 01/24/23 13:30 01/24/23 14:00 Temperature Temperature Source Pulse Rate 73 69 73 Pulse Rate from SpO2 Sensor 73 71 73 Respiratory Rate 21 21 23 Respiratory Effort / Characteristics Respiratory Depth Blood Pressure 135/86 Blood Pressure Mean 102 Blood Pressure Position Pulse Oximetry 97 98 96 Oxygen Delivery Method Sepsis Recent Fever Within 48 Hours Sepsis New/Unexplained Change in Mental Status Sepsis Action Taken by Nursing Laboratory Data 01/24/23 14:12 01/24/23 14:12 Lab Results 01/24/23 01/24/23 01/24/23 Range/Units 14:10 14:12 14:12 WBC 12.03 H (4.8-10.8) K/ul RBC 4.48 (4.20-5.40) M/uL Hgb 12.3 (12.0-16.0) g/dl Hct 40.2 (37.0-47.0) % MCV 89.7 (80.0-100.0) fL MCH 27.5 (25.0-34.0) pg MCHC 30.6 L (32.0-36.0) g/dL RDW Std Deviation 50.8 H (36.4-46.3) fL RDW Coeff of Amee 15.3 H (11.5-14.5) % Plt Count 290 (130-400) K/uL MPV 9.4 (9.4-12.4) fL Immature Gran % (Auto) 0.7 % Neut % (Auto) 77.3 % Lymph % (Auto) 12.6 % [place] % (Auto) 7.5 % Eos % (Auto) 1.5 % Baso % (Auto) 0.4 % Neut # (Auto) 9.29 H (1.40-6.50) K/uL Lymph # (Auto) 1.52 (1.2-3.4) K/uL [place] # (Auto) 0.90 H (0.11-0.59) K/uL Eos # (Auto) 0.18 (0-0.50) K/uL Baso # (Auto) 0.05 (0-0.2) K/uL Immature Gran # (Auto) 0.09 (0.01-0.20) K/uL Sodium 138 (136-145) mmol/L Potassium 4.5 (3.5-5.1) mmol/L Chloride 108 H (98-107) mmol/L Carbon Dioxide 26 (21-32) mmol/L Anion Gap 4 (3-11) BUN 24 H (6-23) mg/dl Creatinine 1.64 H (0.6-1.2) mg/dl Est Cr Clr Drug Dosing 50.8 ml/min Est GFR ( Amer) 37.4 ml/min Est GFR (Non-Af Amer) 32.3 ml/min BUN/Creatinine Ratio 14.6 (10-20) Glucose 154 H (70-99(Fasting)) mg/dl Calcium 9.0 (8.5-10.1) mg/dl Total Bilirubin 0.4 (0.2-1.0) mg/dl AST 22 (13-39) U/L ALT 26 (7-52) U/L Alkaline Phosphatase 103 (34-104) U/L Total Protein 7.4 (6.0-8.3) gm/dl Albumin 3.6 (3.4-5.0) gm/dl Globulin 3.8 (2.5-4.0) gm/dl Albumin/Globulin Ratio 0.9 (0.9-2) SARS-CoV-2, RNA, NAAT NEGATIVE (NEGATIVE) Administered Medications Albuterol (Albuterol Hfa 8 Gm Inhaler (Combivent Respimat P&T Subs)) 1 puffs INH QIDR ASIYA; Protocol Stop: 02/23/23 18:59 Last Admin: 01/24/23 19:39 Dose: 1 puffs Documented By: BWT Ipratropium Maskell (Ipratropium Hfa Inhaler (Combivent Respimat P&T Subs)) 1 puffs INH QIDR ASIYA; Protocol Stop: 02/23/23 18:59 Last Admin: 01/24/23 19:40 Dose: 1 puffs Documented By: [id number] Polyethylene Glycol (Polyethylene (Miralax) 17 Gm Pack) 17 gm PO DAILY [facility] Stop: 02/23/23 14:44 Last Admin: 01/24/23 15:59 Dose: Not Given Documented By: [id number] Senna/Docusate Sodium (Docusate Sodium/Senna 50/8.6mg Tab) 1 tab PO QAM ASIYA Stop: 02/23/23 14:44 Last Admin: 01/24/23 15:59 Dose: Not Given Documented By: [id number] Discontinued Medications Torsemide (Torsemide 10 Mg Tab) 10 mg PO QAM ONE Stop: 01/24/23 14:46 Last Admin: 01/24/23 15:58 Dose: 10 mg Documented By: [id number] Discharge Plan Visit Data Chief Complaint: Illness ED Provider: Vidya Irby Discharge Problem: Generalized weakness, Ambulatory dysfunction Patient Disposition: Admitted As Inpatient Discharge Instructions Interventions: ED Discharge Assessment Last Done: 01/24/23 17:42
--- NOTE | 2023-01-24 14:21 | History & Physical Report ---
Date of Service January 24, 2023 Assessment & Plan (1) Failure to thrive: Plan: -Admit to med/surge -The patient is currently afebrile, hemodynamically stable, and stable on RA -Patient had a prolonged hospitalization with discharge home with home health on 01/11/23 -CM had tried multiple times to help get the patient placed but she refused and wished for DC home -She is now in agreement that she needs placement due to her numerous health needs -No acute trauma from her recent falls, fall precautions ordered -PT/OT consults ordered, CM is aware that the patient is being admitted and will follow -BL SCDs and 40 mg Sub-Q lovenox BID for DVT PPX -AM CBC and BMP (2) CKD (chronic kidney disease): Plan: -Stable -Avoid nephrotoxic agents as able (3) Adjustment disorder with depressed mood: Plan: -Continue sertraline, topiramate, and Wellbutrin (4) Hypothyroidism (acquired): Plan: -Continue levothyroxine (5) GERD (gastroesophageal reflux disease): Plan: -Continue pantoprazole (6) Insulin-requiring or dependent type II diabetes mellitus: Plan: -Continue home insulin pump, ordered placed -Continue Jardiance -Monitor BSG ACHS with correction factor of 25 -Adjust as needed -DM II diet (7) Chronic diastolic congestive heart failure: Plan: -Examines euvolemic -Conitnue 10 mg PO torsemide BID (8) Chronic respiratory failure: Plan: -Stable on RA, trache appears well placed and without signs of infection or drainage -Continue home breathing txs, trach care qshift ordered (9) Dyslipidemia: Plan: -Continue statin (10) Constipation: Plan: -Patient has not had a BM in 4 days -Was not taking her home bowel regimen due to difficulty getting onto her bedside commode -Will start bowel regimen today including Miralax and Colace/senna -Monitor for response Plan The patient was discussed with Dr. Smiley at the time of the admission History of Present Illness Chief Complaint: Failure to thrive Primary Care Provider: Ofe Mcgee MD Whit is a 67yo Female with PMH morbid obesity with right femur fracture unlikely to heal further, nonambulatory status, tracheostomy dependent, COPD, diastolic heart failure, anxiety, DM2, GERD, CKD4, hypothyroidism, HTN, CAD who presented to the [facility] ED on 01/24/23 via EMS due to failure to thrive at home. Per chart review, the patient had a recent prolonged hospital stay of 100 days due to her increased care needs and non-ambulatory status. During that time CM worked extensively with the patient who refused acute rehab stay, returning to [facility], or [place] SNF's [place] She was initially treated with IV diuretics due to acute on chronic combined CHF and was discharged on her daily torsemide. She was initially discharged home with health services, however, her Physical Therapist recommended coming to the ED for evaluation due to not functioning well at home. In the ED the patient was found to be afebrile, hemodynamically stable, and stable on RA. Initial CBC and CMP were in process at the time of the admission. At the time of the exam the patient was resting comfortably in bed in no acute distress. She states that since discharge her mobility at home has been very poor. She has home health and family to assist her but it is becoming clear that she is unable to care for herself adequately at home. Since 01/18 she has had 4 episodes of sliding to the floor while trying to get on her bedside commode. She landed on her buttocks each time and denies hitting her head and losing consciousness. When asked, she denies any musculoskeletal pain besides her chronic right LE pain. She has been able to eat and drink well but was not taking her bowel regimen or torsemide as she was having difficulty getting onto the beside commode safely. She has no other complaints at this time, she would prefer to use her insulin pump while admitted. We discussed code status, she wishes to be a full code and for her daughter to make medical decisions for her if she could not make them herself. Please refer to Dr. Smiley's attestation for any changes to the treatment plan Allergies Allergy/AdvReac Type Severity Reaction Status Date / Time Penicillins Allergy Intermediate Hives Verified 10/01/22 19:48 amitriptyline Allergy Unknown ON EMBASSY Verified 10/01/22 19:48 OF [facility]AR[facility]IDE MED LIST doxycycline Allergy Unknown ON EMBASSY Verified 10/01/22 19:48 OF [facility] MED LIST guaifenesin Allergy Unknown ON EMBASSY Verified 10/01/22 19:48 OF [facility]AR[facility]SIDE MED LIST metformin Allergy Unknown ON EMBASSY Verified 10/01/22 19:48 OF [facility] MED LIST phenylephrine Allergy Unknown ON EMBASSY Verified 10/01/22 19:48 OF [facility] MED LIST pseudoephedrine Allergy Unknown ON EMBASSY Verified 10/01/22 19:48 OF [facility] MED LIST tetracycline Allergy Unknown ON EMBASSY Verified 10/01/22 19:48 OF [facility]AR[facility]IDE MED LIST venlafaxine [From Effexor] Allergy Unknown ON EMBASSY Verified 10/01/22 19:48 OF HEARTHSIDE MED LIST gabapentin AdvReac Intermediate BECOMES Verified 10/01/22 19:48 AGGRESSIVE Home Medications Medication Instructions Recorded Confirmed Type aspirin 81 mg tablet,delayed 81 mg PO QAM 04/06/19 01/24/23 History release (Robert Low Dose Aspirin) multivitamin 1 tab PO QAM 04/06/19 01/24/23 History ipratropium 0.5 mg-albuterol 3 mg 3 ml inhalation Q4H PRN COUGHING, 02/27/21 01/24/23 History (2.5 mg base)/3 mL nebulization WHEEZING, SHORTNESS OF BREATH soln blood sugar diagnostic (Contour #[phone] ea 09/29/21 01/24/23 Rx Next Test Strips) docusate sodium 100 mg capsule 100 mg PO BID 10/01/22 01/24/23 History Calcium Citrate [Citracal] 950 mg PO DAILY@1200 #30 tabs 01/11/23 01/24/23 Rx albuterol sulfate 90 mcg/actuation 2 puff inhalation Q4 PRN Shortness 01/11/23 01/24/23 Rx aerosol inhaler Of Breath #6.7 grams atorvastatin 40 mg tablet 40 mg PO QPM #90 tabs 01/11/23 01/24/23 Rx azithromycin 250 mg tablet 250 mg PO MoWeFr@0900 #20 tabs 01/11/23 01/24/23 Rx bupropion HCl 100 mg tablet,12 hr 100 mg PO QAM #30 ea 01/11/23 01/24/23 Rx sustained-release bupropion HCl 100 mg tablet,12 hr 200 mg PO PM #30 ea 01/11/23 01/24/23 Rx sustained-release diclofenac sodium 1 % topical gel 4 g EXT QID #30 grams 01/11/23 01/24/23 Rx (Voltaren Arthritis Pain) docusate sodium 100 mg capsule 100 mg PO BID #60 caps 01/11/23 01/24/23 Rx empagliflozin 10 mg tablet 10 mg PO QAM #30 tabs 01/11/23 01/24/23 Rx (Jardiance) folic acid 1 mg tablet 1 mg PO QAM #30 tabs 01/11/23 01/24/23 Rx insulin aspart U-100 100 unit/mL 1 ea Not Applicable ACHS #30 mL 01/11/23 01/24/23 Rx subcutaneous solution (Novolog U-100 Insulin aspart) ipratropium 20 mcg-albuterol 100 1 puff inhalation QID #4 grams 01/11/23 01/24/23 Rx mcg/actuation mist for inhalation (Combivent Respimat) isosorbide mononitrate 30 mg 30 mg PO QAM #30 tabs 01/11/23 01/24/23 Rx tablet,extended release 24 hr levothyroxine 200 mcg tablet 200 mcg PO DAILYBB #30 tabs 01/11/23 01/24/23 Rx levothyroxine 25 mcg tablet 25 mcg PO DAILYBB #30 tabs 01/11/23 01/24/23 Rx magnesium oxide 400 mg PO QAM #30 tabs 01/11/23 01/24/23 Rx melatonin 3 mg tablet 6 mg PO HS #30 tabs 01/11/23 01/24/23 Rx metoprolol tartrate 25 mg tablet 12.5 mg PO BID #60 tabs 01/11/23 01/24/23 Rx nitroglycerin 0.4 mg sublingual 0.4 mg sublingual DIRECTED PRN 01/11/23 01/24/23 Rx tablet Chest Pain #25 tabs oxycodone 10 mg tablet 10 mg PO Q6H PRN pain #30 tabs 01/11/23 01/24/23 Rx pantoprazole 40 mg tablet,delayed 40 mg PO DAILYBB #3 tabs 01/11/23 01/24/23 Rx release potassium chloride 20 mEq 20 meq PO BID #60 tabs 01/11/23 01/24/23 Rx tablet,extended release sertraline 50 mg tablet 50 mg PO QAM #30 tabs 01/11/23 01/24/23 Rx spironolactone 25 mg tablet 25 mg PO QAM #30 tabs 01/11/23 01/24/23 Rx topiramate 100 mg tablet 100 mg PO QAM #30 tabs 01/11/23 01/24/23 Rx torsemide 10 mg tablet 10 mg PO BID #60 tabs 01/11/23 01/24/23 Rx Past Med/Surg History Medical History (Updated 01/24/23 @ 14:58 by Wagner Perez PA-C) Advanced care planning/counseling discussion Ambulatory dysfunction Breathlessness Chest pain CHF (congestive heart failure) CKD stage 4 due to type 2 diabetes mellitus Dyslipidemia Fluid overload HTN (hypertension) Insulin-requiring or dependent type II diabetes mellitus MRSA (methicillin resistant staph aureus) culture positive "sputum 11/2015" Palliative care encounter Right ventricular dysfunction Sepsis Vitamin D deficiency Surgical History History of appendectomy History of cholecystectomy History of hysterectomy History of tonsillectomy and adenoidectomy S/P IVC filter Family History Mother Coronary heart disease COPD (chronic obstructive pulmonary disease) Father Suicide Hung himself. Pt found him. Unknown Lung cancer Social History Smoking Status: Never smoker Tobacco Type: Cigarettes Second Hand Exposure: No; Hx Alcohol Use: No Hx Substance Use: No Preferred Language: Liberian Communication Ability: Effective Visual Impairment: Limited Tufter Required: No Beliefs That Will Affect Care: Moravian marital status: Current Living Situation: Penitentiary Current Living Situation Comment: came from [facility] doesn't want to go back current occupational status: disabled How many Children do You have: 1 Feels Safe at Home: No Is there a partner from a previous relationship who is making you feel unsafe now?: No Assistive Devices: Bedside Commode, Hospital Bed, Oxygen - at Night, Walker, Wheelchair and Other Review of Systems Review of Systems: Denies current fever, chills, headache, changes in vision, hearing, taste, and smell, chest pain, SOB, cough, abdominal pain, nausea, vomiting, diarrhea, hematemesis, melena, dysuria, hematuria. All systems have been reviewed and are otherwise negative. Physical Exam Physical Exam: Physical Exam: General: In no acute distress, stated age, morbidly obese, chronically ill- appearing HEENT: Normocephalic, atraumatic, no scleral icterus, pupils around round, symmetrical, and reactive to light, moist mucus membranes, trachea midline, no thyromegaly Chest/Pulm: trach in place and without signs of drainage or infection, No respiratory distress, symmetrical chest expansion, clear breath sounds throughout Cardiac: RRR, no murmurs noted Abdomen: Negative for ascites and bruising, normoactive bowel sounds, soft, non-tender to palpation throughout Musculoskeletal: No tenderness to palpation of the head and cervical spine, patient with intact ROM of the BL UE's, RLE is chronically shortened and externally rotated due to previous frx, no acute trauma to the LLE Extremities: Radial, dorsalis pedis, and posterior tibial pulses are intact and symmetrical, no edema noted in the BL LE's Skin: Warm, dry, no rashes , lesions, or scars noted Neuro: Alert and oriented to person, place, month, year, and president, no focal defects, CN II-XII tested and intact, no tremors noted Psych: No acute distress, calm and cooperative during the exam Results & Data Results & [facility] ([facility]) Vital Signs (Past 12 Hours) Vital Signs Temp Pulse Resp BP Pulse Ox O2 Del Method 01/24/23 13:07 36.5 C 75 18 139/73 97 Room Air 01/24/23 13:05 76 Laboratory Results Abnormal lab results 01/24/23 01/24/23 Range/Units 14:12 14:12 WBC 12.03 H (4.8-10.8) K/ul MCHC 30.6 L (32.0-36.0) g/dL RDW Std Deviation 50.8 H (36.4-46.3) fL RDW Coeff of Amee 15.3 H (11.5-14.5) % Neut # (Auto) 9.29 H (1.40-6.50) K/uL [place] # (Auto) 0.90 H (0.11-0.59) K/uL Chloride 108 H (98-107) mmol/L BUN 24 H (6-23) mg/dl Creatinine 1.64 H (0.6-1.2) mg/dl Glucose 154 H (70-99(Fasting)) mg/dl ECG Additional Comments: No ECG available at the time of the admission Code Status & VTE Plan Code Status Full code VTE Prophylaxis Plan VTE Prophylaxis will be ordered: Yes Supervising Physician Co-Signing Physician Notes Patient seen and examined, chart reviewed, case discussed with Wagner Perez PA-C and I agree with the assessment and plan as above except as otherwise noted Labs and images reviewed Megan is seen at the bedside following admission. Is no longer able to ambulate at home, is too weak to get out of bed. No focal symptoms, does not feel she has had any sudden changes but can no longer care for herself at home. Arm continues to hurt. Lung sounds are diminished and distant but clear, heart rate is regular. Warm and well-perfused. Agree with management above. PG Care Time/CCT Total # of Minutes Spent Total Time Spent with Patient: Total time spent is greater than 50% in coordination of care (as documented) at patient's floor/unit and/or counseling patient: [place] [address] INT INP/OBS CARE 2/55MIN Patient Type Established Medical Decision Making Moderate Complexity Diagnoses Failure to thrive CKD (chronic kidney disease) N18.9 Adjustment disorder with depressed mood F43.21 Hypothyroidism (acquired) E03.9 GERD (gastroesophageal reflux disease) K21.9 Insulin-requiring or dependent type II diabetes mellitus E11.9; Z79.4 Chronic diastolic congestive heart failure I50.32 Chronic respiratory failure J96.10 Respiratory failure complication: unspecified whether with hypoxia or hypercapnia Dyslipidemia E78.5 Constipation K59.00 (8) Chronic respiratory failure Respiratory failure complication: unspecified whether with hypoxia or hypercapnia Qualified Code(s): J96.10 - Chronic respiratory failure, un specified whether with hypoxia or hypercapnia
[2023-01-24 14:29] LABS: Basophils # (auto) 0.05 K/uL (0-0.2); Basophils % (auto) 0.4 %; Eosinophils # (auto) 0.18 K/uL (0-0.50); Eosinophils % (auto) 1.5 %; Hematocrit (blood only) 40.2 % (37.0-47.0); Hemoglobin 12.3 g/dl (12.0-16.0); Immature Granulocytes # (auto) 0.09 K/uL (0.01-0.20); Immature Granulocytes % (auto) 0.7 %; Lymphocytes # (auto) 1.52 K/uL (1.2-3.4); Lymphocytes % (auto) 12.6 %; Mean Corpuscular Hemoglobin 27.5 pg (25.0-34.0); Mean Corpuscular Hgb Conc 30.6 g/dL (32.0-36.0); Mean Corpuscular Volume 89.7 fL (80.0-100.0); Mean Platelet Volume 9.4 fL (9.4-12.4); Monocytes % (auto) 7.5 %; Neutrophils # (auto) 9.29 K/uL (1.40-6.50); Neutrophils % (auto) 77.3 %; Platelet Count 290 K/uL (130-400); RDW Coefficient of Variation 15.3 % (11.5-14.5); RDW Standard Deviation 50.8 fL (36.4-46.3); Red Blood Count 4.48 M/uL (4.20-5.40); White Blood Count 12.03 K/ul (4.8-10.8)
[2023-01-24] MEDS ORDERED: DEXTROSE 50% 50 ML SYRINGE IV PRN (14:34)
[2023-01-24] MEDS ORDERED: GLUCAGON FOR INJ 1 MG VIAL SQ PRN (14:34)
[2023-01-24] MEDS ORDERED: CARBOHYDRATES FOR HYPOGLYCEMIA PO PRN (14:34)
[2023-01-24] MEDS ORDERED: GLUCOSE 40% GEL 15 GM TUBE PO PRN (14:34)
[2023-01-24] MEDS ORDERED: GLUCOSE 10 TAB/TUBE PO PRN (14:34)
[2023-01-24 14:45] LABS: Albumin Globulin Ratio 0.9 (0.9-2); Albumin Level 3.6 gm/dl (3.4-5.0); BUN Creatinine Ratio 14.6 (10-20); Bilirubin,Total 0.4 mg/dl (0.2-1.0); Creatinine Clr Calc Pharmacy 50.8 ml/min; Est GFR (African American) 37.4 ml/min; Est GFR (Non-African American) 32.3 ml/min; Globulin 3.8 gm/dl (2.5-4.0); Potassium 4.5 mmol/L (3.5-5.1); Total Protein 7.4 gm/dl (6.0-8.3)
[2023-01-24] MEDS ORDERED: TORSEMIDE 10 MG TAB PO ONE (14:45)
[2023-01-24] MEDS: POLYETHYLENE (MIRALAX) 17 GM PACK PO SCH (15:59)
[2023-01-24] MEDS: DOCUSATE SODIUM/SENNA 50/8.6MG TAB PO SCH (15:59)
[2023-01-24] MEDS ORDERED: IPRATROPIUM BROMIDE/ALBUTEROL respimat INH INH SCH (18:18)
[2023-01-24] MEDS ORDERED: ALBUTEROL HFA 8 GM INHALER INH PRN (18:18)
[2023-01-24] MEDS ORDERED: ENOXAPARIN 0.5 MG/KG SQ SCH (18:18)
[2023-01-24] MEDS: Albuterol HFA 8 GM Inhaler (Combivent Respimat P&T Subs) INH SCH (19:39)
[2023-01-24] MEDS: Ipratropium HFA Inhaler (Combivent Respimat P&T Subs) INH SCH (19:40)
[2023-01-24] MEDS ORDERED: ENOXAPARIN 80 MG/0.8 ML SYR SQ SCH (21:00)
[2023-01-24] MEDS: INSULIN ASPART PER UNIT CHARGE SC SCH ×2 (22:09→22:21)
[2023-01-24] MEDS: MELATONIN 3 MG TAB PO SCH (22:12)
[2023-01-24] MEDS: DICLOFENAC SOD 1% GEL 100 GM TUBE EXT SCH ×2 (22:12→22:21)
[2023-01-24] MEDS: POTASSIUM CHLORIDE CRTAB 20 MEQ TABCR PO SCH (22:14)
[2023-01-24] MEDS: ENOXAPARIN INJ 40 MG/0.4 ML SYR SQ SCH (22:14)
[2023-01-24] MEDS: METOPROLOL TARTRATE 25 MG TAB PO SCH (22:16)
[2023-01-24] MEDS: ATORVASTATIN 40 MG TAB PO SCH (22:16)
[2023-01-24] MEDS: TORSEMIDE 10 MG TAB PO SCH (22:17)
[2023-01-24] MEDS: buPROPion SR 100 MG TABCR PO SCH (22:18)
[2023-01-25] MEDS: PANTOprazole 40 MG TAB PO SCH (05:39)
[2023-01-25] MEDS: LEVOTHYROXINE SODIUM 75 MCG TABLET PO SCH (05:39)
[2023-01-25 06:14] LABS: Hemoglobin 11.7 g/dl (12.0-16.0); Mean Corpuscular Hemoglobin 27.6 pg (25.0-34.0); Mean Corpuscular Hgb Conc 30.8 g/dL (32.0-36.0); Mean Corpuscular Volume 89.6 fL (80.0-100.0); Mean Platelet Volume 9.4 fL (9.4-12.4); Platelet Count 288 K/uL (130-400); RDW Coefficient of Variation 15.4 % (11.5-14.5); RDW Standard Deviation 50.2 fL (36.4-46.3); Red Blood Count 4.24 M/uL (4.20-5.40); White Blood Count 10.47 K/ul (4.8-10.8)
[2023-01-25 06:34] LABS: BUN Creatinine Ratio 13.9 (10-20); Calcium 9.1 mg/dl (8.5-10.1); Creatinine Clr Calc Pharmacy 40.9 ml/min; Est GFR (African American) 29.2 ml/min; Est GFR (Non-African American) 25.2 ml/min; Potassium 4.1 mmol/L (3.5-5.1)
[2023-01-25] MEDS: Ipratropium HFA Inhaler (Combivent Respimat P&T Subs) INH SCH ×4 (07:20→19:57)
[2023-01-25] MEDS: Albuterol HFA 8 GM Inhaler (Combivent Respimat P&T Subs) INH SCH ×4 (07:21→19:57)
[2023-01-25] MEDS: SPIRONOLACTONE 25 MG TAB PO SCH (08:21)
[2023-01-25] MEDS: ENOXAPARIN INJ 40 MG/0.4 ML SYR SQ SCH ×2 (08:21→21:49)
[2023-01-25] MEDS: TORSEMIDE 10 MG TAB PO SCH ×2 (08:21→21:52)
[2023-01-25] MEDS: TOPIRAMATE 100 MG TAB PO SCH (08:21)
[2023-01-25] MEDS: DOCUSATE SODIUM/SENNA 50/8.6MG TAB PO SCH (08:21)
[2023-01-25] MEDS: POLYETHYLENE (MIRALAX) 17 GM PACK PO SCH (08:21)
[2023-01-25] MEDS: SERTRALINE HCL 50 MG TABLET PO SCH (08:21)
[2023-01-25] MEDS: METOPROLOL TARTRATE 25 MG TAB PO SCH ×2 (08:22→21:50)
[2023-01-25] MEDS: POTASSIUM CHLORIDE CRTAB 20 MEQ TABCR PO SCH ×2 (08:22→21:50)
[2023-01-25] MEDS: MAGNESIUM OXIDE 400 MG TAB PO SCH (08:23)
[2023-01-25] MEDS: buPROPion SR 100 MG TABCR PO SCH ×2 (08:23→21:52)
[2023-01-25] MEDS: DICLOFENAC SOD 1% GEL 100 GM TUBE EXT SCH ×4 (08:23→21:49)
[2023-01-25] MEDS: ASPIRIN 81 MG ECTAB PO SCH (08:23)
[2023-01-25] MEDS: ISOSORBIDE MONO EXTENDED REL 30 MG TABCR PO SCH (08:23)
[2023-01-25] MEDS: FOLIC ACID 1 MG TAB PO SCH (08:23)
[2023-01-25] MEDS ORDERED: EMPAGLIFLOZIN 10 MG TAB PO SCH (09:00)
[2023-01-25] MEDS: INSULIN ASPART PER UNIT CHARGE SC SCH ×4 (09:34→21:33)
--- NOTE | 2023-01-25 12:53 | Electrocardiogram Report ---
Test Reason : Blood Pressure : / mmHG Vent. Rate : 071 BPM Atrial Rate : 071 BPM P-R Int : 234 ms QRS Dur : 140 ms QT Int : 412 ms P-R-T Axes : 076 -40 018 degrees QTc Int : 447 ms Sinus rhythm with 1st degree A-V block Left anterior fascicular block Right bundle branch block Abnormal ECG When compared with ECG of 01-OCT-2022 15:37, No significant change was found Confirmed by Gorge Kaur ([id number]) on 01/25/2023 12:53:18 PM Referred By: REFERRED SELF Confirmed By:Gorge Kaur
--- NOTE | 2023-01-25 14:51 | Hospitalist Progress Note ---
Date of Service January 25, 2023 Assessment & Plan (1) Failure to thrive: Plan: Supportive care. She will need SNF placement at discharge. Continue PT and OT. (2) CKD (chronic kidney disease): Plan: Stable . Monitor intake and output. Serial labs. Avoid nephrotoxic agents (3) Adjustment disorder with depressed mood: Plan: Stable on sertraline, topiramate, and Wellbutrin (4) Hypothyroidism (acquired): Plan: Stable on levothyroxine (5) GERD (gastroesophageal reflux disease): Plan: Stable on pantoprazole (6) Insulin-requiring or dependent type II diabetes mellitus: Plan: Continue home insulin pump. Jardiance discontinued this morning, January 25, due to hyperglycemia. Sliding scale insulin coverage as needed. ADA diet (7) Chronic diastolic congestive heart failure: Plan: Stable. Continue current medical management. Monitor intake and output (8) Chronic respiratory failure: Plan: Stable on RA. Permanent tracheostomy is unremarkable and without signs of infection or drainage . Continue home breathing txs, trach care (9) Dyslipidemia: Plan: Continue statin (10) Constipation: Plan: Was not taking her home bowel regimen due to difficulty getting onto her bedside commode . Now on Miralax and Colace/senna . Plan Anticipate eventual discharge to SNF facility when arrangements are finalized Admission and Anticipated Discharge Date Admission Date: January 24, 2023 Subjective Alert and oriented. No acute complaints. Jardiance discontinued due to hypoglycemia this morning. Awaiting SNF placement. Review of Systems Review of Systems: Constitutional-no fever or chills ENT-no blurred vision, no double vision, no epistaxis, no sore throat Respiratory-no cough, no wheezing, no shortness of breath Cardiac-no palpitations, no chest pain, no syncope GI-no nausea, vomiting, diarrhea, melena, hematochezia -no urinary retention, no urinary incontinence, no dysuria, no hematuria Musculoskeletal-right femur pain with weightbearing due to underlying fracture nonunion Skin-no bruising, no rashes, no pruritus Neuro-no isolated weakness, no paresthesia, no weakness Psych-no depression, no anxiety Physical Exam Physical Exam: General-alert and oriented x3, no fevers, no chills. Morbidly obese HEENT-head atraumatic and normocephalic, pupils equal and reactive to light, extraocular muscles intact Neck-no lymphadenopathy or thyromegaly, trachea midline. Permanent tracheostomy in place Chest-clear to auscultation percussion. No rales wheezing or rhonchi Cardiac-regular rate and rhythm, normal S1 and S2 Abdomen-normal bowel sounds, nontender, no hepatosplenomegaly Extremities-no cyanosis, clubbing, or edema Neuro-cranial nerves II through XII intact, motor and sensory function within normal limits, strength symmetrical , no focal deficits Psych-normal affect, normal mood Results & Data Results & Data ([facility]) Vital Signs (Past 12 Hours) Vital Signs Temp Pulse Pulse Resp BP Pulse Ox O2 Del Method 01/25/23 14:34 36.7 C 77 18 131/61 96 Room Air 01/25/23 11:01 60 18 95 Room Air 01/25/23 08:01 36.7 C 60 18 114/72 95 Room Air 01/25/23 07:21 68 20 95 Laboratory Results 01/25/23 05:35 01/25/23 05:35 PG Care Time/CCT Total # of Minutes Spent Total Time Spent with Patient: Total time spent is greater than 50% in coordination of care (as documented) at patient's floor/unit and/or counseling patient: Coding Level of Care Code 69086 SUB INP/OBS CARE 3/50MIN Diagnoses Failure to thrive CKD (chronic kidney disease) N18.9 Adjustment disorder with depressed mood F43.21 Hypothyroidism (acquired) E03.9 GERD (gastroesophageal reflux disease) K21.9 Insulin-requiring or dependent type II diabetes mellitus E11.9; Z79.4 Chronic diastolic congestive heart failure I50.32 Chronic respiratory failure J96.10 Respiratory failure complication: unspecified whether with hypoxia or hypercapnia Dyslipidemia E78.5 Constipation K59.00 (8) Chronic respiratory failure Respiratory failure complication: unspecified whether with hypoxia or hypercapnia Qualified Code(s): J96.10 - Chronic respiratory failure, unspecified whether with hypoxia or hypercapnia
[2023-01-25] MEDS: oxyCODONE HCL IR 5 MG TAB (IMMEDIATE RELEASE) PO PRN (21:49)
[2023-01-25] MEDS: ATORVASTATIN 40 MG TAB PO SCH (21:51)
[2023-01-25] MEDS: MELATONIN 3 MG TAB PO SCH (21:53)
[2023-01-26] MEDS: PANTOprazole 40 MG TAB PO SCH (05:44)
[2023-01-26] MEDS: LEVOTHYROXINE SODIUM 75 MCG TABLET PO SCH (05:45)
[2023-01-26] MEDS: Albuterol HFA 8 GM Inhaler (Combivent Respimat P&T Subs) INH SCH ×4 (07:28→20:12)
[2023-01-26] MEDS: Ipratropium HFA Inhaler (Combivent Respimat P&T Subs) INH SCH ×4 (07:28→20:12)
[2023-01-26] MEDS: INSULIN ASPART PER UNIT CHARGE SC SCH ×4 (09:29→21:54)
[2023-01-26] MEDS: ENOXAPARIN INJ 40 MG/0.4 ML SYR SQ SCH ×2 (09:32→21:55)
[2023-01-26] MEDS: DOCUSATE SODIUM/SENNA 50/8.6MG TAB PO SCH (09:32)
[2023-01-26] MEDS: TORSEMIDE 10 MG TAB PO SCH ×2 (09:32→21:53)
[2023-01-26] MEDS: POLYETHYLENE (MIRALAX) 17 GM PACK PO SCH (09:32)
[2023-01-26] MEDS: TOPIRAMATE 100 MG TAB PO SCH (09:32)
[2023-01-26] MEDS: POTASSIUM CHLORIDE CRTAB 20 MEQ TABCR PO SCH ×2 (09:32→21:52)
[2023-01-26] MEDS: DICLOFENAC SOD 1% GEL 100 GM TUBE EXT SCH ×4 (09:32→21:49)
[2023-01-26] MEDS: SERTRALINE HCL 50 MG TABLET PO SCH (09:32)
[2023-01-26] MEDS: METOPROLOL TARTRATE 25 MG TAB PO SCH ×2 (09:32→21:57)
[2023-01-26] MEDS: SPIRONOLACTONE 25 MG TAB PO SCH (09:32)
[2023-01-26] MEDS: FOLIC ACID 1 MG TAB PO SCH (09:33)
[2023-01-26] MEDS: ISOSORBIDE MONO EXTENDED REL 30 MG TABCR PO SCH (09:33)
[2023-01-26] MEDS: MAGNESIUM OXIDE 400 MG TAB PO SCH (09:33)
[2023-01-26] MEDS: buPROPion SR 100 MG TABCR PO SCH ×2 (09:34→21:57)
[2023-01-26] MEDS: AZITHROMYCIN 250 MG TAB PO SCH (09:34)
[2023-01-26] MEDS: ASPIRIN 81 MG ECTAB PO SCH (09:34)
--- NOTE | 2023-01-26 14:10 | Hospitalist Progress Note ---
Date of Service January 26, 2023 Assessment & Plan (1) Failure to thrive: Plan: Supportive care. She will need SNF placement at discharge. Continue PT and OT. (2) CKD (chronic kidney disease): Plan: Stable . Monitor intake and output. Avoid nephrotoxic agents (3) Adjustment disorder with depressed mood: Plan: Stable on sertraline, topiramate, and Wellbutrin (4) Hypothyroidism (acquired): Plan: Stable on levothyroxine (5) GERD (gastroesophageal reflux disease): Plan: Stable on pantoprazole (6) Insulin-requiring or dependent type II diabetes mellitus: Plan: Continue home insulin pump. Jardiance discontinued on January 25, due to hypoglycemia. Sliding scale insulin coverage as needed. ADA diet (7) Chronic diastolic congestive heart failure: Plan: Stable. Continue current medical management. Monitor intake and output (8) Chronic respiratory failure: Plan: Stable on RA. Permanent tracheostomy is unremarkable and without signs of infection or drainage . Continue home breathing txs, trach care (9) Dyslipidemia: Plan: Continue statin (10) Constipation: Plan: Was not taking her home bowel regimen due to difficulty getting onto her bedside commode . Now on Miralax and Colace/senna . Plan Anticipate eventual discharge to SNF facility when arrangements are finalized Admission and Anticipated Discharge Date Admission Date: January 24, 2023 Subjective Alert and oriented. Afebrile. Vital signs are stable. Glucose 138 this morning. She remains off Jardiance. No new problems. Review of Systems Review of Systems: Constitutional-no fever or chills ENT-no blurred vision, no double vision, no epistaxis, no sore throat Respiratory-no cough, no wheezing, no shortness of breath Cardiac-no palpitations, no chest pain, no syncope GI-no nausea, vomiting, diarrhea, melena, hematochezia -no urinary retention, no urinary incontinence, no dysuria, no hematuria Musculoskeletal-right femur pain with weightbearing due to underlying fracture nonunion Skin-no bruising, no rashes, no pruritus Neuro-no isolated weakness, no paresthesia, no weakness Psych-no depression, no anxiety Physical Exam Physical Exam: General-alert and oriented x3, no fevers, no chills. Morbidly obese HEENT-head atraumatic and normocephalic, pupils equal and reactive to light, extraocular muscles intact Neck-no lymphadenopathy or thyromegaly, trachea midline. Permanent tracheostomy in place Chest-clear to auscultation percussion. No rales wheezing or rhonchi Cardiac-regular rate and rhythm, normal S1 and S2 Abdomen-normal bowel sounds, nontender, no hepatosplenomegaly Extremities-no cyanosis, clubbing, or edema Neuro-cranial nerves II through XII intact, motor and sensory function within normal limits, strength symmetrical , no focal deficits Psych-normal affect, normal mood Results & Data Results & Data ([facility]) Vital Signs (Past 12 Hours) Vital Signs Temp Pulse Resp BP Pulse Ox O2 Del Method 01/26/23 11:21 73 18 96 Room Air 01/26/23 09:20 Room Air 01/26/23 07:28 61 18 97 Room Air 01/26/23 07:11 36.5 C 65 18 107/63 97 Room Air Laboratory Results 01/25/23 05:35 01/25/23 05:35 PG Care Time/CCT Total # of Minutes Spent Total Time Spent with Patient: Total time spent is greater than 50% in coordination of care (as documented) at patient's floor/unit and/or counseling patient: Coding Level of Care Code 20883 SUB INP/OBS CARE 235MIN Diagnoses Failure to thrive CKD (chronic kidney disease) N18.9 Adjustment disorder with depressed mood F43.21 Hypothyroidism (acquired) E03.9 GERD (gastroesophageal reflux disease) K21.9 Insulin-requiring or dependent type II diabetes mellitus E11.9; Z79.4 Chronic diastolic congestive heart failure I50.32 Chronic respiratory failure J96.10 Respiratory failure complication: unspecified whether with hypoxia or hypercapnia Dyslipidemia E78.5 Constipation K59.00 (8) Chronic respiratory failure Respiratory failure complication: unspecified whether with hypoxia or hypercapnia Qualified Code(s): J96.10 - Chronic respiratory failure, unsp ecified whether with hypoxia or hypercapnia
[2023-01-26] MEDS: oxyCODONE HCL IR 5 MG TAB (IMMEDIATE RELEASE) PO PRN (21:49)
[2023-01-26] MEDS: MELATONIN 3 MG TAB PO SCH (21:52)
[2023-01-26] MEDS: ATORVASTATIN 40 MG TAB PO SCH (21:53)
[2023-01-27] MEDS: PANTOprazole 40 MG TAB PO SCH (05:53)
[2023-01-27] MEDS: LEVOTHYROXINE SODIUM 75 MCG TABLET PO SCH (05:53)
[2023-01-27] MEDS: Ipratropium HFA Inhaler (Combivent Respimat P&T Subs) INH SCH ×4 (07:28→19:17)
[2023-01-27] MEDS: Albuterol HFA 8 GM Inhaler (Combivent Respimat P&T Subs) INH SCH ×4 (07:28→19:17)
[2023-01-27] MEDS: INSULIN ASPART PER UNIT CHARGE SC SCH ×4 (09:20→20:54)
[2023-01-27] MEDS: METOPROLOL TARTRATE 25 MG TAB PO SCH ×2 (09:21→20:59)
[2023-01-27] MEDS: MAGNESIUM OXIDE 400 MG TAB PO SCH (09:21)
[2023-01-27] MEDS: TOPIRAMATE 100 MG TAB PO SCH (09:21)
[2023-01-27] MEDS: POTASSIUM CHLORIDE CRTAB 20 MEQ TABCR PO SCH ×2 (09:21→21:00)
[2023-01-27] MEDS: SERTRALINE HCL 50 MG TABLET PO SCH (09:21)
[2023-01-27] MEDS: TORSEMIDE 10 MG TAB PO SCH ×2 (09:21→20:58)
[2023-01-27] MEDS: ISOSORBIDE MONO EXTENDED REL 30 MG TABCR PO SCH (09:21)
[2023-01-27] MEDS: SPIRONOLACTONE 25 MG TAB PO SCH (09:22)
[2023-01-27] MEDS: FOLIC ACID 1 MG TAB PO SCH (09:22)
[2023-01-27] MEDS: ASPIRIN 81 MG ECTAB PO SCH (09:22)
[2023-01-27] MEDS: ENOXAPARIN INJ 40 MG/0.4 ML SYR SQ SCH ×2 (09:22→20:59)
[2023-01-27] MEDS: buPROPion SR 100 MG TABCR PO SCH ×2 (09:22→20:59)
[2023-01-27] MEDS: DICLOFENAC SOD 1% GEL 100 GM TUBE EXT SCH ×4 (09:23→20:58)
[2023-01-27] MEDS: POLYETHYLENE (MIRALAX) 17 GM PACK PO SCH (09:28)
[2023-01-27] MEDS: DOCUSATE SODIUM/SENNA 50/8.6MG TAB PO SCH (09:28)
--- NOTE | 2023-01-27 15:24 | Hospitalist Progress Note ---
Date of Service January 27, 2023 Assessment & Plan (1) Failure to thrive: Plan: Supportive care. She will need SNF placement at discharge. Continue PT and OT. (2) CKD (chronic kidney disease): Plan: Stable . Monitor intake and output. Avoid nephrotoxic agents (3) Adjustment disorder with depressed mood: Plan: Stable on sertraline, topiramate, and Wellbutrin (4) Hypothyroidism (acquired): Plan: Stable on levothyroxine (5) GERD (gastroesophageal reflux disease): Plan: Stable on pantoprazole (6) Insulin-requiring or dependent type II diabetes mellitus: Plan: Continue home insulin pump. Jardiance discontinued on January 25, due to hypoglycemia. Sliding scale insulin coverage as needed. ADA diet (7) Chronic diastolic congestive heart failure: Plan: Stable. Continue current medical management. Monitor intake and output (8) Chronic respiratory failure: Plan: Stable on RA. Permanent tracheostomy is unremarkable and without signs of infection or drainage . Continue home breathing txs, trach care (9) Dyslipidemia: Plan: Continue statin (10) Constipation: Plan: Was not taking her home bowel regimen due to difficulty getting onto her bedside commode . Now on Miralax and Colace/senna . Plan Anticipate eventual discharge to SNF facility when arrangements are finalized Admission and Anticipated Discharge Date Admission Date: January 24, 2023 Subjective Alert and oriented. Primary concern is about obtaining a lift chair for home. She is requesting to try Lasix instead of the torsemide. Glucose well controlled off of Jardiance at this time. Placement is pending Review of Systems Review of Systems: Constitutional-no fever or chills ENT-no blurred vision, no double vision, no epistaxis, no sore throat Respiratory-no cough, no wheezing, no shortness of breath Cardiac-no palpitations, no chest pain, no syncope GI-no nausea, vomiting, diarrhea, melena, hematochezia -no urinary retention, no urinary incontinence, no dysuria, no hematuria Musculoskeletal-right femur pain with weightbearing due to underlying fracture nonunion Skin-no bruising, no rashes, no pruritus Neuro-no isolated weakness, no paresthesia, no weakness Psych-no depression, no anxiety Physical Exam Physical Exam: General-alert and oriented x3, no fevers, no chills. Morbidly obese HEENT-head atraumatic and normocephalic, pupils equal and reactive to light, extraocular muscles intact Neck-no lymphadenopathy or thyromegaly, trachea midline. Permanent tracheostomy in place Chest-clear to auscultation percussion. No rales wheezing or rhonchi Cardiac-regular rate and rhythm, normal S1 and S2 Abdomen-normal bowel sounds, nontender, no hepatosplenomegaly Extremities-no cyanosis, clubbing, or edema Neuro-cranial nerves II through XII intact, motor and sensory function within normal limits, strength symmetrical , no focal deficits Psych-normal affect, normal mood Results & Data Results & Data ([facility]) Vital Signs (Past 12 Hours) Vital Signs Temp Pulse Pulse Resp BP Pulse Ox O2 Del Method 01/27/23 15:21 74 18 92 Room Air 01/27/23 15:03 36.9 C 74 16 119/60 94 Room Air 01/27/23 10:34 72 18 93 Room Air 01/27/23 09:42 Room Air 01/27/23 07:52 36.7 C 69 20 119/72 97 Room Air, Trach Collar 01/27/23 07:37 63 18 93 Room Air Laboratory Results 01/25/23 05:35 01/25/23 05:35 PG Care Time/CCT Total # of Minutes Spent Total Time Spent with Patient: Total time spent is greater than 50% in coordination of care (as documented) at patient's floor/unit and/or counseling patient: Coding Level of Care Code 24789 SUB INP/OBS CARE 2MIN Diagnoses Failure to thrive CKD (chronic kidney disease) N18.9 Adjustment disorder with depressed mood F43.21 Hypothyroidism (acquired) E03.9 GERD (gastroesophageal reflux disease) K21.9 Insulin-requiring or dependent type II diabetes mellitus E11.9; Z79.4 Chronic diastolic congestive heart failure I50.32 Chronic respiratory failure J96.10 Respiratory failure complication: unspecified whether with hypoxia or hypercapnia Dyslipidemia E78.5 Constipation K59.00 (8) Chronic respiratory failure Respiratory failure complication: unspecified whether with hypoxia or hypercapnia Qualified Code(s): J96.10 - Chronic respiratory failure, unspecified whether with hypoxia or hypercapnia
[2023-01-27] MEDS ORDERED: FUROSEMIDE 40 MG TAB PO ONE (15:30)
[2023-01-27] MEDS: MELATONIN 3 MG TAB PO SCH (20:58)
[2023-01-27] MEDS: ATORVASTATIN 40 MG TAB PO SCH (21:00)
[2023-01-27] MEDS: oxyCODONE HCL IR 5 MG TAB (IMMEDIATE RELEASE) PO PRN (21:04)
[2023-01-27] MEDS: ALUMINUM/MAGNESIUM SUSP 30 ML UDC PO PRN (22:27)
[2023-01-28] MEDS: LEVOTHYROXINE SODIUM 75 MCG TABLET PO SCH (05:33)
[2023-01-28] MEDS: PANTOprazole 40 MG TAB PO SCH (05:33)
[2023-01-28] MEDS: Ipratropium HFA Inhaler (Combivent Respimat P&T Subs) INH SCH ×4 (06:59→20:50)
[2023-01-28] MEDS: Albuterol HFA 8 GM Inhaler (Combivent Respimat P&T Subs) INH SCH ×4 (07:13→19:17)
[2023-01-28] MEDS: DICLOFENAC SOD 1% GEL 100 GM TUBE EXT SCH ×4 (07:23→21:03)
[2023-01-28 08:24] LABS: Hematocrit (blood only) 37.7 % (37.0-47.0); Hemoglobin 11.6 g/dl (12.0-16.0); Mean Corpuscular Hemoglobin 27.1 pg (25.0-34.0); Mean Corpuscular Hgb Conc 30.8 g/dL (32.0-36.0); Mean Corpuscular Volume 88.1 fL (80.0-100.0); Mean Platelet Volume 9.6 fL (9.4-12.4); Platelet Count 273 K/uL (130-400); RDW Coefficient of Variation 15.2 % (11.5-14.5); RDW Standard Deviation 48.6 fL (36.4-46.3); Red Blood Count 4.28 M/uL (4.20-5.40)
[2023-01-28 08:54] LABS: Creatinine Clr Calc Pharmacy 46.2 ml/min; Est GFR (African American) 34.8 ml/min
[2023-01-28] MEDS: INSULIN ASPART PER UNIT CHARGE SC SCH ×4 (08:56→21:10)
[2023-01-28] MEDS: ASPIRIN 81 MG ECTAB PO SCH (08:57)
[2023-01-28] MEDS: AZITHROMYCIN 250 MG TAB PO SCH (08:58)
[2023-01-28] MEDS: buPROPion SR 100 MG TABCR PO SCH ×2 (08:58→21:02)
[2023-01-28] MEDS: ENOXAPARIN INJ 40 MG/0.4 ML SYR SQ SCH ×2 (09:00→21:02)
[2023-01-28] MEDS: ISOSORBIDE MONO EXTENDED REL 30 MG TABCR PO SCH (09:00)
[2023-01-28] MEDS: FOLIC ACID 1 MG TAB PO SCH (09:00)
[2023-01-28] MEDS: MAGNESIUM OXIDE 400 MG TAB PO SCH (09:01)
[2023-01-28] MEDS: METOPROLOL TARTRATE 25 MG TAB PO SCH ×2 (09:02→21:03)
[2023-01-28] MEDS: SERTRALINE HCL 50 MG TABLET PO SCH (09:03)
[2023-01-28] MEDS: POTASSIUM CHLORIDE CRTAB 20 MEQ TABCR PO SCH ×2 (09:03→21:02)
[2023-01-28] MEDS: SPIRONOLACTONE 25 MG TAB PO SCH (09:04)
[2023-01-28] MEDS: TOPIRAMATE 100 MG TAB PO SCH (09:04)
[2023-01-28] MEDS: TORSEMIDE 10 MG TAB PO SCH ×2 (09:05→21:02)
[2023-01-28] MEDS: POLYETHYLENE (MIRALAX) 17 GM PACK PO SCH (09:06)
[2023-01-28] MEDS: DOCUSATE SODIUM/SENNA 50/8.6MG TAB PO SCH (09:10)
[2023-01-28] MEDS: oxyCODONE HCL IR 5 MG TAB (IMMEDIATE RELEASE) PO PRN ×2 (13:43→21:02)
--- NOTE | 2023-01-28 14:02 | XRay Report ---
LEFT KNEE 2 VIEWS CLINICAL HISTORY: Left knee pain. FINDINGS: AP and crosstable lateral views of the left knee are compared to study dated 06/20/2020. The skeletal structures are osteopenic. There is no radiographic evidence of acute fracture. There is mo derate to advanced tricompartmental degenerative joint space narrowing, greatest in the medial and pa tellofemoral compartments. There are marginal osteophytes, patellar enthesophytes, and degenerative b eaking of the tibial spine. Calcified joint bodies are noted. There is no significant joint effusion. Soft tissue swelling is seen around the knee, greatest medially. IMPRESSION: 1. Soft tissue swelling with no acute bony abnormality identified. 2. Osteopenia and degenerative change as above. Electronically signed by: Jasper Hancock M.D. 01/28/2023 2:00 PM
--- NOTE | 2023-01-28 14:15 | Hospitalist Progress Note ---
Date of Service January 28, 2023 Assessment & Plan (1) Failure to thrive: Plan: Supportive care. She will need SNF placement at discharge. Continue PT and OT. (2) CKD (chronic kidney disease): Plan: Stable . Monitor intake and output. Avoid nephrotoxic agents (3) Adjustment disorder with depressed mood: Plan: Stable on sertraline, topiramate, and Wellbutrin (4) Hypothyroidism (acquired): Plan: Stable on levothyroxine (5) GERD (gastroesophageal reflux disease): Plan: Stable on pantoprazole (6) Insulin-requiring or dependent type II diabetes mellitus: Plan: Continue home insulin pump. Jardiance discontinued on January 25, due to hypoglycemia. Sliding scale insulin coverage as needed. ADA diet (7) Chronic diastolic congestive heart failure: Plan: Stable. Continue current medical management. Monitor intake and output (8) Chronic respiratory failure: Plan: Stable on RA. Permanent tracheostomy is unremarkable and without signs of infection or drainage . Continue home breathing txs, trach care (9) Dyslipidemia: Plan: Continue statin (10) Constipation: Plan: Was not taking her home bowel regimen due to difficulty getting onto her bedside commode . Now on Miralax and Colace/senna . (11) Left knee pain: Plan: She states the left knee pain started when she fell at home. No apparent fracture. X-ray is pending Plan Anticipate eventual discharge to SNF facility when arrangements are finalized Admission and Anticipated Discharge Date Admission Date: January 24, 2023 Subjective Alert and oriented. She is complaining of some left knee pain which started when she fell at home. There is no deformity or swelling on examination. X- rays ordered and pending. Review of Systems Review of Systems: Constitutional-no fever or chills ENT-no blurred vision, no double vision, no epistaxis, no sore throat Respiratory-no cough, no wheezing, no shortness of breath Cardiac-no palpitations, no chest pain, no syncope GI-no nausea, vomiting, diarrhea, melena, hematochezia -no urinary retention, no urinary incontinence, no dysuria, no hematuria Musculoskeletal-right femur pain with weightbearing due to underlying fracture nonunion . Left knee discomfort at rest but no left knee erythema or effusion Skin-no bruising, no rashes, no pruritus Neuro-no isolated weakness, no paresthesia Psych-no depression, no anxiety Physical Exam Physical Exam: General-alert and oriented x3, no fevers, no chills. Morbidly obese HEENT-head atraumatic and normocephalic, pupils equal and reactive to light, extraocular muscles intact Neck-no lymphadenopathy or thyromegaly, trachea midline. Permanent tracheostomy in place Chest-clear to auscultation percussion. No rales wheezing or rhonchi Cardiac-regular rate and rhythm, normal S1 and S2 Abdomen-normal bowel sounds, nontender, no hepatosplenomegaly Extremities-no cyanosis, clubbing, or edema. Left knee negative for knee effusion or swelling or erythema. Neuro-cranial nerves II through XII intact, motor and sensory function within normal limits, strength symmetrical , no focal deficits Psych-normal affect, normal mood Results & Data Results & Data ([facility]) Vital Signs (Past 12 Hours) Vital Signs Temp Pulse Resp BP Pulse Ox O2 Del Method FiO2 01/28/23 11:32 65 18 95 Nasal Cannula 21 01/28/23 11:28 65 18 95 Room Air 21 01/28/23 10:12 Room Air 01/28/23 07:36 36.7 C 63 12 111/68 95 Room Air 01/28/23 07:15 76 14 96 Room Air 21 01/28/23 06:50 76 15 96 Room Air 21 01/28/23 05:38 96 Room Air Laboratory Results 01/28/23 07:51 01/28/23 07:51 PG Care Time/CCT Total # of Minutes Spent Total Time Spent with Patient: Total time spent is greater than 50% in coordination of care (as documented) at patient's floor/unit and/or counseling patient: Coding Level of Care Code 53749 SUB INP/OBS CARE 2/35MIN Diagnoses Failure to thrive CKD (chronic kidney disease) N18.9 Adjustment disorder with depressed mood F43.21 Hypothyroidism (acquired) E03.9 GERD (gastroesophageal reflux disease) K21.9 Insulin-requiring or dependent type II diabetes mellitus E11.9; Z79.4 Chronic diastolic congestive heart failure I50.32 Chronic respiratory failure J96.10 Respiratory failure complication: unspecified whether with hypoxia or hypercapnia Dyslipidemia E78.5 Constipation K59.00 Left knee pain M25.562 (8) Chronic respiratory failure Respiratory failure complication: unspecified whether with hypoxia or hypercapnia Qualified Code(s): J96.10 - Chronic respiratory failure, unspecified whether with hypoxia or hypercapnia
[2023-01-28] MEDS: MELATONIN 3 MG TAB PO SCH (21:02)
[2023-01-28] MEDS: ATORVASTATIN 40 MG TAB PO SCH (21:03)
[2023-01-28] MEDS: ALUMINUM/MAGNESIUM SUSP 30 ML UDC PO PRN (21:40)
[2023-01-29] MEDS: LEVOTHYROXINE SODIUM 75 MCG TABLET PO SCH (05:47)
[2023-01-29] MEDS: PANTOprazole 40 MG TAB PO SCH (05:47)
[2023-01-29] MEDS: Albuterol HFA 8 GM Inhaler (Combivent Respimat P&T Subs) INH SCH ×4 (07:42→19:37)
[2023-01-29] MEDS: Ipratropium HFA Inhaler (Combivent Respimat P&T Subs) INH SCH ×4 (07:43→19:37)
[2023-01-29] MEDS: MAGNESIUM OXIDE 400 MG TAB PO SCH (08:29)
[2023-01-29] MEDS: FOLIC ACID 1 MG TAB PO SCH (08:29)
[2023-01-29] MEDS: ISOSORBIDE MONO EXTENDED REL 30 MG TABCR PO SCH (08:29)
[2023-01-29] MEDS: TOPIRAMATE 100 MG TAB PO SCH (08:29)
[2023-01-29] MEDS: POTASSIUM CHLORIDE CRTAB 20 MEQ TABCR PO SCH ×2 (08:29→20:54)
[2023-01-29] MEDS: ASPIRIN 81 MG ECTAB PO SCH (08:30)
[2023-01-29] MEDS: DICLOFENAC SOD 1% GEL 100 GM TUBE EXT SCH ×4 (08:30→20:55)
[2023-01-29] MEDS: TORSEMIDE 10 MG TAB PO SCH ×2 (08:30→20:54)
[2023-01-29] MEDS: METOPROLOL TARTRATE 25 MG TAB PO SCH ×2 (08:30→20:55)
[2023-01-29] MEDS: buPROPion SR 100 MG TABCR PO SCH ×2 (08:30→20:53)
[2023-01-29] MEDS: SERTRALINE HCL 50 MG TABLET PO SCH (08:30)
[2023-01-29] MEDS: SPIRONOLACTONE 25 MG TAB PO SCH (08:30)
[2023-01-29] MEDS: POLYETHYLENE (MIRALAX) 17 GM PACK PO SCH (08:31)
[2023-01-29] MEDS: ENOXAPARIN INJ 40 MG/0.4 ML SYR SQ SCH ×2 (08:31→20:49)
[2023-01-29] MEDS: DOCUSATE SODIUM/SENNA 50/8.6MG TAB PO SCH (08:34)
[2023-01-29] MEDS: INSULIN ASPART PER UNIT CHARGE SC SCH (09:33)
[2023-01-29] MEDS ORDERED: INSULIN ASPART 100 UNITS/ML VIAL SC PRN (09:45)
--- NOTE | 2023-01-29 12:18 | Hospitalist Progress Note ---
Date of Service January 29, 2023 Assessment & Plan (1) Failure to thrive: Plan: Supportive care. She will need SNF placement at discharge. Continue PT and OT. (2) CKD (chronic kidney disease): Plan: Stable . Monitor intake and output. Avoid nephrotoxic agents (3) Adjustment disorder with depressed mood: Plan: Stable on sertraline, topiramate, and Wellbutrin (4) Hypothyroidism (acquired): Plan: Stable on levothyroxine (5) GERD (gastroesophageal reflux disease): Plan: Stable on pantoprazole (6) Insulin-requiring or dependent type II diabetes mellitus: Plan: Continue home insulin pump. Jardiance discontinued on January 25, due to hypoglycemia. Sliding scale insulin coverage as needed. ADA diet (7) Chronic diastolic congestive heart failure: Plan: Stable. Continue current medical management. Monitor intake and output (8) Chronic respiratory failure: Plan: Stable on RA. Permanent tracheostomy is unremarkable and without signs of infection or drainage . Continue home breathing txs, trach care (9) Dyslipidemia: Plan: Continue statin (10) Constipation: Plan: Was not taking her home bowel regimen due to difficulty getting onto her bedside commode . Now on Miralax and Colace/senna . (11) Left knee pain: Plan: She states the left knee pain started when she fell at home. X-ray is negative for fracture. Continue symptomatic care and physical therapy. Plan Anticipate eventual discharge to SNF facility when arrangements are finalized Admission and Anticipated Discharge Date Admission Date: January 24, 2023 Subjective Alert and oriented. Left knee x-ray negative for fracture but there is some edema noted from the fall at home recently. Thankfully there is no underlying fracture. Glucose remains stable off Jardiance. She has a insulin pump present. Review of Systems Review of Systems: Constitutional-no fever or chills ENT-no blurred vision, no double vision, no epistaxis, no sore throat Respiratory-no cough, no wheezing, no shortness of breath Cardiac-no palpitations, no chest pain, no syncope GI-no nausea, vomiting, diarrhea, melena, hematochezia -no urinary retention, no urinary incontinence, no dysuria, no hematuria Musculoskeletal-right femur pain with weightbearing due to underlying fracture nonunion . Left knee discomfort at rest but no left knee erythema or effusion Skin-no bruising, no rashes, no pruritus Neuro-no isolated weakness, no paresthesia Psych-no depression, no anxiety Physical Exam Physical Exam: General-alert and oriented x3, no fevers, no chills. Morbidly obese HEENT-head atraumatic and normocephalic, pupils equal and reactive to light, extraocular muscles intact Neck-no lymphadenopathy or thyromegaly, trachea midline. Permanent tracheostomy in place Chest-clear to auscultation percussion. No rales wheezing or rhonchi Cardiac-regular rate and rhythm, normal S1 and S2 Abdomen-normal bowel sounds, nontender, no hepatosplenomegaly Extremities-no cyanosis, clubbing, or edema. Left knee negative for knee effusion or swelling or erythema. Neuro-cranial nerves II through XII intact, motor and sensory function within normal limits, strength symmetrical , no focal deficits Psych-normal affect, normal mood Results & Data Results & Data ([facility]) Vital Signs (Past 12 Hours) Vital Signs Temp Pulse Resp BP Pulse Ox O2 Del Method 01/29/23 11:18 64 18 95 Room Air 01/29/23 09:57 Room Air 01/29/23 07:57 36.7 C 65 20 132/71 95 Room Air 01/29/23 07:43 70 18 94 Room Air Laboratory Results 01/28/23 07:51 01/28/23 07:51 PG Care Time/CCT Total # of Minutes Spent Total Time Spent with Patient: Total time spent is greater than 50% in coordination of care (as documented) at patient's floor/unit and/or counseling patient: Coding Level of Care Code 47554 SUB INP/OBS CARE 2/35MIN Diagnoses Failure to thrive CKD (chronic kidney disease) N18.9 Adjustment disorder with depressed mood F43.21 Hypothyroidism (acquired) E03.9 GERD (gastroesophageal reflux disease) K21.9 Insulin-requiring or dependent type II diabetes mellitus E11.9; Z79.4 Chronic diastolic congestive heart failure I50.32 Chronic respiratory failure J96.10 Respiratory failure complication: unspecified whether with hypoxia or hypercapnia Dyslipidemia E78.5 Constipation K59.00 Left knee pain M25.562 (8) Chronic respiratory failure Respiratory failure complication: unspecified whether with hypoxia or hypercapnia Qualified Code(s): J96.10 - Chronic respiratory failure, unspecifie d whether with hypoxia or hypercapnia
[2023-01-29] MEDS: INSULIN, Rapid-Acting PUMP SCH ×3 (13:13→21:08)
[2023-01-29] MEDS: ATORVASTATIN 40 MG TAB PO SCH (20:52)
[2023-01-29] MEDS: MELATONIN 3 MG TAB PO SCH (20:52)
[2023-01-29] MEDS: oxyCODONE HCL IR 5 MG TAB (IMMEDIATE RELEASE) PO PRN (23:09)
[2023-01-30] MEDS: PANTOprazole 40 MG TAB PO SCH (05:40)
[2023-01-30] MEDS: LEVOTHYROXINE SODIUM 75 MCG TABLET PO SCH (05:40)
[2023-01-30] MEDS: Albuterol HFA 8 GM Inhaler (Combivent Respimat P&T Subs) INH SCH ×4 (07:27→19:25)
[2023-01-30] MEDS: Ipratropium HFA Inhaler (Combivent Respimat P&T Subs) INH SCH ×4 (07:28→19:25)
[2023-01-30] MEDS: MAGNESIUM OXIDE 400 MG TAB PO SCH (08:02)
[2023-01-30] MEDS: ISOSORBIDE MONO EXTENDED REL 30 MG TABCR PO SCH (08:02)
[2023-01-30] MEDS: SERTRALINE HCL 50 MG TABLET PO SCH (08:02)
[2023-01-30] MEDS: FOLIC ACID 1 MG TAB PO SCH (08:02)
[2023-01-30] MEDS: ASPIRIN 81 MG ECTAB PO SCH (08:02)
[2023-01-30] MEDS: SPIRONOLACTONE 25 MG TAB PO SCH (08:02)
[2023-01-30] MEDS: TOPIRAMATE 100 MG TAB PO SCH (08:02)
[2023-01-30] MEDS: TORSEMIDE 10 MG TAB PO SCH ×2 (08:02→21:10)
[2023-01-30] MEDS: POTASSIUM CHLORIDE CRTAB 20 MEQ TABCR PO SCH ×2 (08:02→21:10)
[2023-01-30] MEDS: buPROPion SR 100 MG TABCR PO SCH ×2 (08:02→21:09)
[2023-01-30] MEDS: DICLOFENAC SOD 1% GEL 100 GM TUBE EXT SCH ×4 (08:03→21:12)
[2023-01-30] MEDS: POLYETHYLENE (MIRALAX) 17 GM PACK PO SCH (08:03)
[2023-01-30] MEDS: ENOXAPARIN INJ 40 MG/0.4 ML SYR SQ SCH ×2 (08:03→21:12)
[2023-01-30] MEDS: DOCUSATE SODIUM/SENNA 50/8.6MG TAB PO SCH (08:04)
[2023-01-30] MEDS: METOPROLOL TARTRATE 25 MG TAB PO SCH ×2 (08:04→21:11)
[2023-01-30] MEDS: INSULIN, Rapid-Acting PUMP SCH ×4 (08:53→21:33)
--- NOTE | 2023-01-30 12:07 | Hospitalist Progress Note ---
Date of Service January 30, 2023 Assessment & Plan (1) Failure to thrive: Plan: Supportive care. She will need SNF placement at discharge. Continue PT and OT. (2) CKD (chronic kidney disease): Plan: Stable . Monitor intake and output. Avoid nephrotoxic agents (3) Adjustment disorder with depressed mood: Plan: Stable on sertraline, topiramate, and Wellbutrin (4) Hypothyroidism (acquired): Plan: Stable on levothyroxine (5) GERD (gastroesophageal reflux disease): Plan: Stable on pantoprazole (6) Insulin-requiring or dependent type II diabetes mellitus: Plan: Continue home insulin pump. Jardiance discontinued on January 25, due to hypoglycemia. Glucose remains well controlled. Sliding scale insulin coverage as needed. ADA diet (7) Chronic diastolic congestive heart failure: Plan: Stable. Continue current medical management. Monitor intake and output (8) Chronic respiratory failure: Plan: Stable on RA. Permanent tracheostomy is unremarkable and without signs of infection or drainage . Continue home breathing txs, trach care (9) Dyslipidemia: Plan: Continue statin (10) Constipation: Plan: Was not taking her home bowel regimen due to difficulty getting onto her bedside commode . Now on Miralax and Colace/senna . (11) Left knee pain: Plan: She states the left knee pain started when she fell at home. X-ray is negative for fracture. Continue symptomatic care and physical therapy. Plan Anticipate eventual discharge to SNF facility when arrangements are finalized Admission and Anticipated Discharge Date Admission Date: January 24, 2023 Subjective Alert and oriented. No new problems. Her PCP, Dr. Mcgee, stated she completed the paperwork necessary for the home lift chair. SNF placement is pending. She does not need serial lab studies which have been discontinued Review of Systems Review of Systems: Constitutional-no fever or chills ENT-no blurred vision, no double vision, no epistaxis, no sore throat Respiratory-no cough, no wheezing, no shortness of breath Cardiac-no palpitations, no chest pain, no syncope GI-no nausea, vomiting, diarrhea, melena, hematochezia -no urinary retention, no urinary incontinence, no dysuria, no hematuria Musculoskeletal-right femur pain with weightbearing due to underlying fracture nonunion . Left knee discomfort at rest but no left knee erythema or effusion Skin-no bruising, no rashes, no pruritus Neuro-no isolated weakness, no paresthesia Psych-no depression, no anxiety Physical Exam Physical Exam: General-alert and oriented x3, no fevers, no chills. Morbidly obese HEENT-head atraumatic and normocephalic, pupils equal and reactive to light, extraocular muscles intact Neck-no lymphadenopathy or thyromegaly, trachea midline. Permanent tracheostomy in place Chest-clear to auscultation percussion. No rales wheezing or rhonchi Cardiac-regular rate and rhythm, normal S1 and S2 Abdomen-normal bowel sounds, nontender, no hepatosplenomegaly Extremities-no cyanosis, clubbing, or edema. Left knee negative for knee effusion or swelling or erythema. Neuro-cranial nerves II through XII intact, motor and sensory function within normal limits, strength symmetrical , no focal deficits Psych-normal affect, normal mood Results & Data Results & Data ([facility]) Vital Signs (Past 12 Hours) Vital Signs Temp Pulse Resp BP Pulse Ox O2 Del Method 01/30/23 11:31 62 18 94 Room Air 01/30/23 08:19 Room Air 01/30/23 07:28 60 18 95 Room Air 01/30/23 06:56 36.5 C 57 L 20 121/72 96 Room Air Laboratory Results 01/28/23 07:51 01/28/23 07:51 PG Care Time/CCT Total # of Minutes Spent Total Time Spent with Patient: Total time spent is greater than 50% in coordination of care (as documented) at patient's floor/unit and/or counseling patient: Coding Level of Care Code 98629 SUB INP/OBS CARE 2/35MIN Diagnoses Failure to thrive CKD (chronic kidney disease) N18.9 Adjustment disorder with depressed mood F43.21 Hypothyroidism (acquired) E03.9 GERD (gastroesophageal reflux disease) K21.9 Insulin-requiring or dependent type II diabetes mellitus E11.9; Z79.4 Chronic diastolic congestive heart failure I50.32 Chronic respiratory failure J96.10 Respiratory failure complication: unspecified whether with hypoxia or hypercapnia Dyslipidemia E78.5 Constipation K59.00 Left knee pain M25.562 (8) Chronic respiratory failure Respiratory failure complication: unspecified whether with hypoxia or hypercap angelina Qualified Code(s): J96.10 - Chronic respiratory failure, unspecified whether with hypoxia or hypercapnia
[2023-01-30] MEDS: MELATONIN 3 MG TAB PO SCH (21:11)
[2023-01-30] MEDS: ATORVASTATIN 40 MG TAB PO SCH (21:12)
[2023-01-30] MEDS: oxyCODONE HCL IR 5 MG TAB (IMMEDIATE RELEASE) PO PRN (21:17)
[2023-01-31] MEDS: PANTOprazole 40 MG TAB PO SCH (06:10)
[2023-01-31] MEDS: LEVOTHYROXINE SODIUM 75 MCG TABLET PO SCH (06:10)
[2023-01-31] MEDS: Ipratropium HFA Inhaler (Combivent Respimat P&T Subs) INH SCH ×4 (07:25→19:02)
[2023-01-31] MEDS: Albuterol HFA 8 GM Inhaler (Combivent Respimat P&T Subs) INH SCH ×4 (07:26→19:02)
[2023-01-31] MEDS: SERTRALINE HCL 50 MG TABLET PO SCH (07:39)
[2023-01-31] MEDS: FOLIC ACID 1 MG TAB PO SCH (07:40)
[2023-01-31] MEDS: SPIRONOLACTONE 25 MG TAB PO SCH (07:40)
[2023-01-31] MEDS: METOPROLOL TARTRATE 25 MG TAB PO SCH ×2 (07:40→20:43)
[2023-01-31] MEDS: buPROPion SR 100 MG TABCR PO SCH ×2 (07:40→20:39)
[2023-01-31] MEDS: ISOSORBIDE MONO EXTENDED REL 30 MG TABCR PO SCH (07:40)
[2023-01-31] MEDS: TORSEMIDE 10 MG TAB PO SCH ×2 (07:40→20:41)
[2023-01-31] MEDS: ASPIRIN 81 MG ECTAB PO SCH (07:40)
[2023-01-31] MEDS: POTASSIUM CHLORIDE CRTAB 20 MEQ TABCR PO SCH ×2 (07:40→20:41)
[2023-01-31] MEDS: AZITHROMYCIN 250 MG TAB PO SCH (07:41)
[2023-01-31] MEDS: MAGNESIUM OXIDE 400 MG TAB PO SCH (07:41)
[2023-01-31] MEDS: ENOXAPARIN INJ 40 MG/0.4 ML SYR SQ SCH ×2 (07:41→20:40)
[2023-01-31] MEDS: DICLOFENAC SOD 1% GEL 100 GM TUBE EXT SCH ×4 (07:41→20:39)
[2023-01-31] MEDS: TOPIRAMATE 100 MG TAB PO SCH (07:41)
[2023-01-31] MEDS: POLYETHYLENE (MIRALAX) 17 GM PACK PO SCH (07:42)
[2023-01-31] MEDS: DOCUSATE SODIUM/SENNA 50/8.6MG TAB PO SCH (07:43)
[2023-01-31] MEDS: INSULIN, Rapid-Acting PUMP SCH ×4 (08:46→20:45)
--- NOTE | 2023-01-31 12:24 | Hospitalist Progress Note ---
Date of Service January 31, 2023 Assessment & Plan (1) Failure to thrive: Plan: patient recently discharged from the hosptal after a long hospital stay However, she fell at least 4 times at home because all the home improvements were not done. she did not have a lifet and a wide enough door for his wheelchair She is now agreeable to be placed in SNF Social work on consult, awaiting facilities availability (2) CKD (chronic kidney disease): Plan: Stable . Monitor intake and output. Avoid nephrotoxic agents (3) Adjustment disorder with depressed mood: Plan: Stable on sertraline, topiramate, and Wellbutrin (4) Hypothyroidism (acquired): Plan: Stable on levothyroxine (5) GERD (gastroesophageal reflux disease): Plan: Stable on pantoprazole (6) Insulin-requiring or dependent type II diabetes mellitus: Plan: Continue home insulin pump. Jardiance discontinued on January 25, due to hypoglycemia. Glucose remains well controlled. Sliding scale insulin coverage as needed. ADA diet (7) Chronic diastolic congestive heart failure: Plan: Stable. Continue current medical management. Monitor intake and output (8) Chronic respiratory failure: Plan: Stable on RA. Permanent tracheostomy is unremarkable and without signs of infection or drainage . Continue home breathing txs, trach care (9) Dyslipidemia: Plan: Continue statin (10) Constipation: Plan: Was not taking her home bowel regimen due to difficulty getting onto her bedside commode . Now on Miralax and Colace/senna . (11) Left knee pain: Plan: She states the left knee pain started when she fell at home. X-ray is negative for fracture. Continue symptomatic care and physical therapy. Plan Anticipate eventual discharge to SNF facility when arrangements are finalized Admission and Anticipated Discharge Date Admission Date: January 24, 2023 Subjective patient seen and examined, no new complaints today, lying quietly in bed Review of Systems Review of Systems: All systems reviewed are negative, apart from the ones contained in the history. Physical Exam Physical Exam: The patient is awake, alert and oriented 3,morbidly obese HEENT--PERRL, EOMI, mucous membranes and oropharynx mildly dry Neck--supple. No JVD. No bruits. Thyroid normal, trachea midline, no adenopathy. Heart--normal S1 and S2. No murmurs, rubs or gallops. Lungs--clear bilaterally, no respiratory distress, no accessory muscle use. Abdomen--normal bowel sounds and soft. Mild epigastric and left sided abdominal pain Extremities--no cyanosis or clubbing. No edema. Dermatologic--normal skin turgor, normal color, no abnormal lymph nodes, no rash. Neurologic--cranial nerves II through XII grossly intact. Rheumatologic--normal range of motion. Psychiatric--normal affect. Results & Data Results & Data ([facility]) Vital Signs (Past 12 Hours) Vital Signs Temp Pulse Pulse Resp BP Pulse Ox O2 Del Method 01/31/23 11:25 63 18 93 Room Air 01/31/23 07:56 Room Air 01/31/23 07:29 60 18 97 Room Air 01/31/23 07:04 97.3 F L 60 16 131/82 96 Room Air PG Care Time/CCT Total # of Minutes Spent Total Time Spent with Patient: Total time spent is greater than 50% in coordination of care (as documented) at patient's floor/unit and/or counseling patient: Coding Level of Care Code 30895 SUB INP/OBS CARE 2/35MIN Diagnoses Failure to thrive CKD (chronic kidney disease) N18.9 Adjustment disorder with depressed mood F43.21 Hypothyroidism (acquired) E03.9 GERD (gastroesophageal reflux disease) K21.9 Insulin-requiring or dependent type II diabetes mellitus E11.9; Z79.4 Chronic diastolic congestive heart failure I50.32 Chronic respiratory failure J96.10 Respiratory failure complication: unspecified whether with hypoxia or hypercapnia Dyslipidemia E78.5 Constipation K59.00 Left knee pain M25.562 Time Spent (min) 35 (8) Chronic respiratory failure Respiratory failure complication: unspecified whether with hypoxia or hypercapnia Qualified Code(s): J96.10 - Chronic respiratory failure, unspecified whether with hypoxia or hypercapnia
[2023-01-31] MEDS: oxyCODONE HCL IR 5 MG TAB (IMMEDIATE RELEASE) PO PRN (14:12)
--- NOTE | 2023-01-31 15:54 | Ultrasound Report ---
ULTRASOUND RIGHT LOWER EXTREMITY VENOUS CLINICAL HISTORY: Right calf pain. COMPARISON STUDY: Bilateral lower extremity venous ultrasound dated 04/14/2021. TECHNIQUE: Real-time, grayscale, and color Doppler sonography of the deep veins of the right lower ex tremity was performed from the inguinal crease to the calf. Compression and augmentation were utilize d. The examination is degraded by large body habitus. FINDINGS: There is no sonographic evidence of deep venous thrombosis identified in the right lower ex tremity. The common femoral, superficial femoral, and popliteal veins are patent and normally ashtyn sible. The greater saphenous vein and the profunda femoris vein at the junction with the common femor al vein are clear. The visualized calf veins are patent. IMPRESSION: There is no sonographic evidence of deep venous thrombosis identified in the right lower extremity. ACT 112: Negative or not required by law. Electronically signed by: Jasper Hancock M.D. 01/31/2023 3:52 PM
[2023-01-31] MEDS: ATORVASTATIN 40 MG TAB PO SCH (20:39)
[2023-01-31] MEDS: MELATONIN 3 MG TAB PO SCH (20:40)
[2023-02-01] MEDS: PANTOprazole 40 MG TAB PO SCH (06:27)
[2023-02-01] MEDS: LEVOTHYROXINE SODIUM 75 MCG TABLET PO SCH (06:27)
[2023-02-01] MEDS: Ipratropium HFA Inhaler (Combivent Respimat P&T Subs) INH SCH ×4 (07:22→19:13)
[2023-02-01] MEDS: Albuterol HFA 8 GM Inhaler (Combivent Respimat P&T Subs) INH SCH ×4 (07:22→19:13)
[2023-02-01] MEDS: INSULIN, Rapid-Acting PUMP SCH ×4 (08:21→21:29)
[2023-02-01] MEDS: POLYETHYLENE (MIRALAX) 17 GM PACK PO SCH (09:16)
[2023-02-01] MEDS: TOPIRAMATE 100 MG TAB PO SCH (09:19)
[2023-02-01] MEDS: SPIRONOLACTONE 25 MG TAB PO SCH (09:19)
[2023-02-01] MEDS: DOCUSATE SODIUM/SENNA 50/8.6MG TAB PO SCH (09:19)
[2023-02-01] MEDS: POTASSIUM CHLORIDE CRTAB 20 MEQ TABCR PO SCH ×2 (09:19→20:09)
[2023-02-01] MEDS: TORSEMIDE 10 MG TAB PO SCH ×2 (09:19→20:08)
[2023-02-01] MEDS: FOLIC ACID 1 MG TAB PO SCH (09:19)
[2023-02-01] MEDS: MAGNESIUM OXIDE 400 MG TAB PO SCH (09:19)
[2023-02-01] MEDS: ISOSORBIDE MONO EXTENDED REL 30 MG TABCR PO SCH (09:20)
[2023-02-01] MEDS: DICLOFENAC SOD 1% GEL 100 GM TUBE EXT SCH ×4 (09:20→20:08)
[2023-02-01] MEDS: SERTRALINE HCL 50 MG TABLET PO SCH (09:20)
[2023-02-01] MEDS: ASPIRIN 81 MG ECTAB PO SCH (09:20)
[2023-02-01] MEDS: buPROPion SR 100 MG TABCR PO SCH ×2 (09:20→20:10)
[2023-02-01] MEDS: ENOXAPARIN INJ 40 MG/0.4 ML SYR SQ SCH ×2 (09:20→20:13)
[2023-02-01] MEDS: METOPROLOL TARTRATE 25 MG TAB PO SCH ×2 (09:20→20:09)
--- NOTE | 2023-02-01 12:28 | Hospitalist Progress Note ---
Date of Service February 01, 2023 Assessment & Plan (1) Failure to thrive: Plan: patient recently discharged from the hosptal after a long hospital stay However, she fell at least 4 times at home because all the home improvements were not done. she did not have a lifet and a wide enough door for his wheelchair She is now agreeable to be placed in SNF Social work on consult, awaiting facilities availability for placement (2) CKD (chronic kidney disease): Plan: Stable . Monitor intake and output. Avoid nephrotoxic agents (3) Adjustment disorder with depressed mood: Plan: Stable on sertraline, topiramate, and Wellbutrin (4) Hypothyroidism (acquired): Plan: Stable on levothyroxine (5) GERD (gastroesophageal reflux disease): Plan: Stable on pantoprazole (6) Insulin-requiring or dependent type II diabetes mellitus: Plan: Continue home insulin pump. Jardiance discontinued on January 25, due to hypoglycemia. Glucose remains well controlled. Sliding scale insulin coverage as needed. ADA diet (7) Chronic diastolic congestive heart failure: Plan: Stable. Continue current medical management. Monitor intake and output (8) Chronic respiratory failure: Plan: Stable on RA. Permanent tracheostomy is unremarkable and without signs of infection or drainage . Continue home breathing txs, trach care (9) Dyslipidemia: Plan: Continue statin (10) Constipation: Plan: Was not taking her home bowel regimen due to difficulty getting onto her bedside commode . Now on Miralax and Colace/senna . (11) Left knee pain: Plan: She states the left knee pain started when she fell at home. X-ray is negative for fracture. Continue symptomatic care and physical therapy. Plan Anticipate eventual discharge to SNF facility when arrangements are finalized, she is a difficult placement Admission and Anticipated Discharge Date Admission Date: January 24, 2023 Subjective patient seen and examined, no new complaints today, lying quietly in bed, awaiting placement Review of Systems Review of Systems: All systems reviewed are negative, apart from the ones contained in the history. Physical Exam Physical Exam: The patient is awake, alert and oriented 3,morbidly obese HEENT--PERRL, EOMI, mucous membranes and oropharynx mildly dry Neck--supple. No JVD. No bruits. Thyroid normal, trachea midline, no adenopathy. Heart--normal S1 and S2. No murmurs, rubs or gallops. Lungs--clear bilaterally, no respiratory distress, no accessory muscle use. Abdomen--normal bowel sounds and soft. Mild epigastric and left sided abdominal pain Extremities--no cyanosis or clubbing. No edema. Dermatologic--normal skin turgor, normal color, no abnormal lymph nodes, no rash. Neurologic--cranial nerves II through XII grossly intact. Rheumatologic--normal range of motion. Psychiatric--normal affect. Results & Data Results & Data ([facility]) Vital Signs (Past 12 Hours) Vital Signs Temp Pulse Resp BP Pulse Ox O2 Del Method 02/01/23 11:35 68 16 92 Room Air 02/01/23 09:30 Room Air, Trach Collar 02/01/23 08:11 97.7 F 62 18 143/74 H 94 Room Air 02/01/23 07:22 62 20 94 Room Air PG Care Time/CCT Total # of Minutes Spent Total Time Spent with Patient: Total time spent is greater than 50% in coordination of care (as documented) at patient's floor/unit and/or counseling patient: Coding Level of Care Code 95469 SUB INP/OBS CARE 2/35MIN Diagnoses Failure to thrive CKD (chronic kidney disease) N18.9 Adjustment disorder with depressed mood F43.21 Hypothyroidism (acquired) E03.9 GERD (gastroesophageal reflux disease) K21.9 Insulin-requiring or dependent type II diabetes mellitus E11.9; Z79.4 Chronic diastolic congestive heart failure I50.32 Chronic respiratory failure J96.10 Respiratory failure complication: unspecified whether with hypoxia or hypercapnia Dyslipidemia E78.5 Constipation K59.00 Left knee pain M25.562 Time Spent (min) 35 (8) Chronic respiratory failure Respiratory failure complication: unspecified whether with hypoxia or hypercapnia Qualified Code(s): J96.10 - Chronic respiratory failure, unspecified whether with hypoxia or hypercapnia
[2023-02-01] MEDS: ATORVASTATIN 40 MG TAB PO SCH (20:08)
[2023-02-01] MEDS: MELATONIN 3 MG TAB PO SCH (20:10)
[2023-02-01] MEDS: ALUMINUM/MAGNESIUM SUSP 30 ML UDC PO PRN (21:06)
[2023-02-02] MEDS: PANTOprazole 40 MG TAB PO SCH (06:27)
[2023-02-02] MEDS: LEVOTHYROXINE SODIUM 75 MCG TABLET PO SCH (06:27)
[2023-02-02] MEDS: Ipratropium HFA Inhaler (Combivent Respimat P&T Subs) INH SCH ×4 (07:33→19:32)
[2023-02-02] MEDS: Albuterol HFA 8 GM Inhaler (Combivent Respimat P&T Subs) INH SCH ×4 (07:33→19:32)
[2023-02-02] MEDS: ASPIRIN 81 MG ECTAB PO SCH (08:49)
[2023-02-02] MEDS: AZITHROMYCIN 250 MG TAB PO SCH (08:49)
[2023-02-02] MEDS: SPIRONOLACTONE 25 MG TAB PO SCH (08:49)
[2023-02-02] MEDS: TOPIRAMATE 100 MG TAB PO SCH (08:50)
[2023-02-02] MEDS: POTASSIUM CHLORIDE CRTAB 20 MEQ TABCR PO SCH ×2 (08:50→20:09)
[2023-02-02] MEDS: MAGNESIUM OXIDE 400 MG TAB PO SCH (08:50)
[2023-02-02] MEDS: TORSEMIDE 10 MG TAB PO SCH ×2 (08:50→20:10)
[2023-02-02] MEDS: FOLIC ACID 1 MG TAB PO SCH (08:50)
[2023-02-02] MEDS: SERTRALINE HCL 50 MG TABLET PO SCH (08:50)
[2023-02-02] MEDS: buPROPion SR 100 MG TABCR PO SCH ×2 (08:50→20:11)
[2023-02-02] MEDS: DICLOFENAC SOD 1% GEL 100 GM TUBE EXT SCH ×4 (08:51→20:12)
[2023-02-02] MEDS: ISOSORBIDE MONO EXTENDED REL 30 MG TABCR PO SCH (08:51)
[2023-02-02] MEDS: METOPROLOL TARTRATE 25 MG TAB PO SCH ×2 (08:51→20:10)
[2023-02-02] MEDS: ENOXAPARIN INJ 40 MG/0.4 ML SYR SQ SCH ×2 (08:53→20:13)
[2023-02-02] MEDS: INSULIN, Rapid-Acting PUMP SCH ×4 (08:58→21:01)
[2023-02-02] MEDS: DOCUSATE SODIUM/SENNA 50/8.6MG TAB PO SCH (09:26)
[2023-02-02] MEDS: POLYETHYLENE (MIRALAX) 17 GM PACK PO SCH (09:26)
--- NOTE | 2023-02-02 12:48 | Hospitalist Progress Note ---
Date of Service February 02, 2023 Assessment & Plan (1) Failure to thrive: Plan: patient discharged home from the hospital after a long hospital stay However, she fell at least 4 times at home because all the home improvements were not done. She is now agreeable to be placed in SNF Social work on consult, awaiting facilities availability for placement (2) CKD (chronic kidney disease): Plan: Stable . Monitor intake and output. Avoid nephrotoxic agents (3) Adjustment disorder with depressed mood: Plan: Stable on sertraline, topiramate, and Wellbutrin (4) Hypothyroidism (acquired): Plan: Stable on levothyroxine (5) GERD (gastroesophageal reflux disease): Plan: Stable on pantoprazole (6) Insulin-requiring or dependent type II diabetes mellitus: Plan: Continue home insulin pump. Jardiance discontinued on January 25, due to hypoglycemia. Glucose remains well controlled. Sliding scale insulin coverage as needed. ADA diet (7) Chronic diastolic congestive heart failure: Plan: Stable. Continue current medical management. Monitor intake and output (8) Chronic respiratory failure: Plan: Stable on RA. Permanent tracheostomy is unremarkable and without signs of infection or drainage . Continue home breathing txs, trach care (9) Dyslipidemia: Plan: Continue statin (10) Constipation: Plan: Was not taking her home bowel regimen due to difficulty getting onto her bedside commode . Now on Miralax and Colace/senna . (11) Left knee pain: Plan: She states the left knee pain started when she fell at home. X-ray is negative for fracture. Continue symptomatic care and physical therapy. Plan Anticipate eventual discharge to SNF facility when arrangements are finalized, she is a difficult placement Admission and Anticipated Discharge Date Admission Date: January 24, 2023 Subjective patient seen and examined, no new complaints today, lying quietly in bed, awaiting placement Review of Systems Review of Systems: All systems reviewed are negative, apart from the ones contained in the history. Physical Exam Physical Exam: The patient is awake, alert and oriented 3,morbidly obese HEENT--PERRL, EOMI, mucous membranes and oropharynx mildly dry Neck--supple. No JVD. No bruits. Thyroid normal, trachea midline, no adenopathy. Heart--normal S1 and S2. No murmurs, rubs or gallops. Lungs--clear bilaterally, no respiratory distress, no accessory muscle use. Abdomen--normal bowel sounds and soft. Mild epigastric and left sided abdominal pain Extremities--no cyanosis or clubbing. No edema. Dermatologic--normal skin turgor, normal color, no abnormal lymph nodes, no rash. Neurologic--cranial nerves II through XII grossly intact. Rheumatologic--normal range of motion. Psychiatric--normal affect. Results & Data Results & Data Vital Signs (Past 12 Hours) Vital Signs Temp Pulse Resp BP Pulse Ox O2 Del Method FiO2 02/02/23 10:44 72 18 95 Room Air 21 02/02/23 07:38 97.7 F 57 L 22 130/71 95 Trach Collar 02/02/23 07:34 65 15 97 Room Air 21 PG Care Time/CCT Total # of Minutes Spent Total Time Spent with Patient: Total time spent is greater than 50% in coordination of care (as documented) at patient's floor/unit and/or counseling patient: Coding Level of Care Code 04538 SUB INP/OBS CARE 2/35MIN Diagnoses Failure to thrive CKD (chronic kidney disease) N18.9 Adjustment disorder with depressed mood F43.21 Hypothyroidism (acquired) E03.9 GERD (gastroesophageal reflux disease) K21.9 Insulin-requiring or dependent type II diabetes mellitus E11.9; Z79.4 Chronic diastolic congestive heart failure I50.32 Chronic respiratory failure J96.10 Respiratory failure complication: unspecified whether with hypoxia or hypercapnia Dyslipidemia E78.5 Constipation K59.00 Left knee pain M25.562 Time Spent (min) 35 (8) Chronic respiratory failure Respiratory failure complication: unspecified whether with hypoxia or hypercapnia Qualified Code(s): J96.10 - Chronic respiratory failure, unspecified whether with hypoxia or hypercapnia
[2023-02-02] MEDS: ATORVASTATIN 40 MG TAB PO SCH (20:11)
[2023-02-02] MEDS: MELATONIN 3 MG TAB PO SCH (20:12)
[2023-02-03] MEDS: LEVOTHYROXINE SODIUM 75 MCG TABLET PO SCH (05:59)
[2023-02-03] MEDS: PANTOprazole 40 MG TAB PO SCH (05:59)
[2023-02-03] MEDS: Ipratropium HFA Inhaler (Combivent Respimat P&T Subs) INH SCH ×4 (07:19→19:38)
[2023-02-03] MEDS: Albuterol HFA 8 GM Inhaler (Combivent Respimat P&T Subs) INH SCH ×4 (07:19→19:38)
[2023-02-03] MEDS: POTASSIUM CHLORIDE CRTAB 20 MEQ TABCR PO SCH ×2 (08:48→20:43)
[2023-02-03] MEDS: MAGNESIUM OXIDE 400 MG TAB PO SCH (08:48)
[2023-02-03] MEDS: ENOXAPARIN INJ 40 MG/0.4 ML SYR SQ SCH ×2 (08:48→20:40)
[2023-02-03] MEDS: METOPROLOL TARTRATE 25 MG TAB PO SCH ×2 (08:48→20:42)
[2023-02-03] MEDS: TORSEMIDE 10 MG TAB PO SCH ×2 (08:48→20:43)
[2023-02-03] MEDS: ASPIRIN 81 MG ECTAB PO SCH (08:48)
[2023-02-03] MEDS: SPIRONOLACTONE 25 MG TAB PO SCH (08:48)
[2023-02-03] MEDS: DICLOFENAC SOD 1% GEL 100 GM TUBE EXT SCH ×4 (08:49→20:40)
[2023-02-03] MEDS: ISOSORBIDE MONO EXTENDED REL 30 MG TABCR PO SCH (08:49)
[2023-02-03] MEDS: buPROPion SR 100 MG TABCR PO SCH ×2 (08:49→20:38)
[2023-02-03] MEDS: SERTRALINE HCL 50 MG TABLET PO SCH (08:49)
[2023-02-03] MEDS: FOLIC ACID 1 MG TAB PO SCH (08:49)
[2023-02-03] MEDS: TOPIRAMATE 100 MG TAB PO SCH (08:49)
[2023-02-03] MEDS: POLYETHYLENE (MIRALAX) 17 GM PACK PO SCH (08:50)
[2023-02-03] MEDS: DOCUSATE SODIUM/SENNA 50/8.6MG TAB PO SCH (08:51)
[2023-02-03] MEDS: INSULIN, Rapid-Acting PUMP SCH ×4 (08:55→20:44)
--- NOTE | 2023-02-03 12:11 | Hospitalist Progress Note ---
Date of Service February 03, 2023 Assessment & Plan (1) Failure to thrive: Plan: patient discharged home from the hospital after a long hospital stay However, she fell at least 4 times at home because all the home improvements were not done. She is now agreeable to be placed in SNF Social work on consult, awaiting facilities availability for placement (2) CKD (chronic kidney disease): Plan: Stable . Monitor intake and output. Avoid nephrotoxic agents (3) Adjustment disorder with depressed mood: Plan: Stable on sertraline, topiramate, and Wellbutrin (4) Hypothyroidism (acquired): Plan: Stable on levothyroxine (5) GERD (gastroesophageal reflux disease): Plan: Stable on pantoprazole (6) Insulin-requiring or dependent type II diabetes mellitus: Plan: Continue home insulin pump. Jardiance discontinued on January 25, due to hypoglycemia. Glucose remains well controlled. Sliding scale insulin coverage as needed. ADA diet (7) Chronic diastolic congestive heart failure: Plan: Stable. Continue current medical management. Monitor intake and output (8) Chronic respiratory failure: Plan: Stable on RA. Permanent tracheostomy is unremarkable and without signs of infection or drainage . Continue home breathing txs, trach care (9) Dyslipidemia: Plan: Continue statin (10) Constipation: Plan: Now on Miralax and Colace/senna . (11) Left knee pain: Plan: She states the left knee pain started when she fell at home. X-ray is negative for fracture. Continue symptomatic care and physical therapy. Plan Anticipate eventual discharge to SNF facility when arrangements are finalized, she is a difficult placement Working with PT Admission and Anticipated Discharge Date Admission Date: January 24, 2023 Subjective patient seen and examined, no new complaints today, lying quietly in bed, awaiting placement, working with PT Review of Systems Review of Systems: All systems reviewed are negative, apart from the ones contained in the history. Physical Exam Physical Exam: The patient is awake, alert and oriented 3,morbidly obese HEENT--PERRL, EOMI, mucous membranes and oropharynx mildly dry Neck--supple. No JVD. No bruits. Thyroid normal, trachea midline, no adenopathy. Heart--normal S1 and S2. No murmurs, rubs or gallops. Lungs--clear bilaterally, no respiratory distress, no accessory muscle use. Abdomen--normal bowel sounds and soft. Mild epigastric and left sided abdominal pain Extremities--no cyanosis or clubbing. No edema. Dermatologic--normal skin turgor, normal color, no abnormal lymph nodes, no rash. Neurologic--cranial nerves II through XII grossly intact. Rheumatologic--normal range of motion. Psychiatric--normal affect. Results & Data Results & Data Vital Signs (Past 12 Hours) Vital Signs Temp Pulse Pulse Resp BP Pulse Ox O2 Del Method 02/03/23 11:38 65 18 95 Room Air 02/03/23 11:25 98.1 F 67 20 120/68 93 Room Air 02/03/23 07:54 98.4 F 61 20 121/64 94 Room Air 02/03/23 07:20 66 18 94 Room Air PG Care Time/CCT Total # of Minutes Spent Total Time Spent with Patient: Total time spent is greater than 50% in coordination of care (as documented) at patient's floor/unit and/or counseling patient: Coding Level of Care Code 96735 SUB INP/OBS CARE 2/35MIN Diagnoses Failure to thrive CKD (chronic kidney disease) N18.9 Adjustment disorder with depressed mood F43.21 Hypothyroidism (acquired) E03.9 GERD (gastroesophageal reflux disease) K21.9 Insulin-requiring or dependent type II diabetes mellitus E11.9; Z79.4 Chronic diastolic congestive heart failure I50.32 Chronic respiratory failure J96.10 Respiratory failure complication: unspecified whether with hypoxia or hypercapnia Dyslipidemia E78.5 Constipation K59.00 Left knee pain M25.562 Time Spent (min) 35 (8) Chronic respiratory failure Respiratory failure complication: unspecified whether with hypoxia or hypercapnia Qualified Code(s): J96.10 - Chronic respiratory failure, unspecified whether with hypoxia or hypercapnia
[2023-02-03] MEDS: ATORVASTATIN 40 MG TAB PO SCH (20:39)
[2023-02-03] MEDS: MELATONIN 3 MG TAB PO SCH (20:41)
[2023-02-03] MEDS: oxyCODONE HCL IR 5 MG TAB (IMMEDIATE RELEASE) PO PRN (22:21)
[2023-02-04] MEDS: LEVOTHYROXINE SODIUM 75 MCG TABLET PO SCH (05:39)
[2023-02-04] MEDS: PANTOprazole 40 MG TAB PO SCH (05:40)
[2023-02-04] MEDS: Albuterol HFA 8 GM Inhaler (Combivent Respimat P&T Subs) INH SCH ×4 (07:06→19:05)
[2023-02-04] MEDS: Ipratropium HFA Inhaler (Combivent Respimat P&T Subs) INH SCH ×4 (07:06→19:05)
[2023-02-04] MEDS: TOPIRAMATE 100 MG TAB PO SCH (09:03)
[2023-02-04] MEDS: buPROPion SR 100 MG TABCR PO SCH ×2 (09:03→20:34)
[2023-02-04] MEDS: ASPIRIN 81 MG ECTAB PO SCH (09:04)
[2023-02-04] MEDS: TORSEMIDE 10 MG TAB PO SCH ×2 (09:04→21:22)
[2023-02-04] MEDS: MAGNESIUM OXIDE 400 MG TAB PO SCH (09:04)
[2023-02-04] MEDS: AZITHROMYCIN 250 MG TAB PO SCH (09:04)
[2023-02-04] MEDS: ISOSORBIDE MONO EXTENDED REL 30 MG TABCR PO SCH (09:04)
[2023-02-04] MEDS: METOPROLOL TARTRATE 25 MG TAB PO SCH ×2 (09:05→20:35)
[2023-02-04] MEDS: FOLIC ACID 1 MG TAB PO SCH (09:05)
[2023-02-04] MEDS: POTASSIUM CHLORIDE CRTAB 20 MEQ TABCR PO SCH ×2 (09:05→20:36)
[2023-02-04] MEDS: SPIRONOLACTONE 25 MG TAB PO SCH (09:05)
[2023-02-04] MEDS: SERTRALINE HCL 50 MG TABLET PO SCH (09:05)
[2023-02-04] MEDS: DICLOFENAC SOD 1% GEL 100 GM TUBE EXT SCH ×4 (09:06→20:34)
[2023-02-04] MEDS: POLYETHYLENE (MIRALAX) 17 GM PACK PO SCH (09:06)
[2023-02-04] MEDS: ENOXAPARIN INJ 40 MG/0.4 ML SYR SQ SCH ×2 (09:06→20:34)
[2023-02-04] MEDS: INSULIN, Rapid-Acting PUMP SCH ×4 (09:09→20:35)
[2023-02-04] MEDS: DOCUSATE SODIUM/SENNA 50/8.6MG TAB PO SCH (09:14)
--- NOTE | 2023-02-04 13:01 | Hospitalist Progress Note ---
Date of Service February 04, 2023 Assessment & Plan (1) Failure to thrive: Plan: patient discharged home from the hospital after a long hospital stay However, she fell at least 4 times at home because all the home improvements were not done. She is now agreeable to be placed in SNF Social work on consult, awaiting facilities availability for placement (2) CKD (chronic kidney disease): Plan: Stable . Monitor intake and output. Avoid nephrotoxic agents (3) Adjustment disorder with depressed mood: Plan: Stable on sertraline, topiramate, and Wellbutrin (4) Hypothyroidism (acquired): Plan: Stable on levothyroxine (5) GERD (gastroesophageal reflux disease): Plan: Stable on pantoprazole (6) Insulin-requiring or dependent type II diabetes mellitus: Plan: Continue home insulin pump. Jardiance discontinued on January 25, due to hypoglycemia. Glucose remains well controlled. Sliding scale insulin coverage as needed. ADA diet (7) Chronic diastolic congestive heart failure: Plan: Stable. Continue current medical management. Monitor intake and output (8) Chronic respiratory failure: Plan: Stable on RA. Permanent tracheostomy is unremarkable and without signs of infection or drainage . Continue home breathing txs, trach care (9) Dyslipidemia: Plan: Continue statin (10) Constipation: Plan: Now on Miralax and Colace/senna . (11) Left knee pain: Plan: She states the left knee pain started when she fell at home. X-ray is negative for fracture. Continue symptomatic care and physical therapy. (12) Physical deconditioning: Plan: Working with PT was able to stand for 30 seconds then transferred to the chair Plan Anticipate eventual discharge to SNF facility when arrangements are finalized, she is a difficult placement Working with PT Admission and Anticipated Discharge Date Admission Date: January 24, 2023 Subjective patient seen and examined, no new complaints today, was able to stand for 30 seconds, transferred to the chair Review of Systems Review of Systems: All systems reviewed are negative, apart from the ones contained in the history. Physical Exam Physical Exam: The patient is awake, alert and oriented 3,morbidly obese HEENT--PERRL, EOMI, mucous membranes and oropharynx mildly dry Neck--supple. No JVD. No bruits. Thyroid normal, trachea midline, no adenopathy. Heart--normal S1 and S2. No murmurs, rubs or gallops. Lungs--clear bilaterally, no respiratory distress, no accessory muscle use. Abdomen--normal bowel sounds and soft. Mild epigastric and left sided abdominal pain Extremities--no cyanosis or clubbing. No edema. Dermatologic--normal skin turgor, normal color, no abnormal lymph nodes, no rash. Neurologic--cranial nerves II through XII grossly intact. Rheumatologic--normal range of motion. Psychiatric--normal affect. Results & Data Results & Data Vital Signs (Past 12 Hours) Vital Signs Temp Pulse Pulse Resp BP Pulse Ox O2 Del Method 02/04/23 11:23 86 18 95 Room Air 02/04/23 07:55 Room Air 02/04/23 09:00 66 119/64 02/04/23 07:32 97.9 F 60 18 125/71 94 Room Air 02/04/23 07:07 82 18 98 Trach Collar O2 Flow Rate FiO2 02/04/23 11:23 02/04/23 07:55 02/04/23 09:00 02/04/23 07:32 02/04/23 07:07 6 28 PG Care Time/CCT Total # of Minutes Spent Total Time Spent with Patient: Total time spent is greater than 50% in coordination of care (as documented) at patient's floor/unit and/or counseling patient: Coding Level of Care Code 20146 SUB INP/OBS CARE 2/35MIN Diagnoses Failure to thrive CKD (chronic kidney disease) N18.9 Adjustment disorder with depressed mood F43.21 Hypothyroidism (acquired) E03.9 GERD (gastroesophageal reflux disease) K21.9 Insulin-requiring or dependent type II diabetes mellitus E11.9; Z79.4 Chronic diastolic congestive heart failure I50.32 Chronic respiratory failure J96.10 Respiratory failure complication: unspecified whether with hypoxia or hypercapnia Dyslipidemia E78.5 Constipation K59.00 Left knee pain M25.562 Physical deconditioning R53.81 Time Spent (min) 35 (8) Chronic respiratory failure Respiratory failure complication: unspecified whether with hypoxia or hypercapnia Qualified Code(s): J96.10 - Chronic respiratory failure, unspecified whether with hypoxia or hypercapnia
[2023-02-04] MEDS: ATORVASTATIN 40 MG TAB PO SCH (20:33)
[2023-02-04] MEDS: MELATONIN 3 MG TAB PO SCH (20:35)
[2023-02-04] MEDS: oxyCODONE HCL IR 5 MG TAB (IMMEDIATE RELEASE) PO PRN (23:29)
[2023-02-05] MEDS: LEVOTHYROXINE SODIUM 75 MCG TABLET PO SCH (06:05)
[2023-02-05] MEDS: TORSEMIDE 10 MG TAB PO SCH ×2 (06:06→14:36)
[2023-02-05] MEDS: PANTOprazole 40 MG TAB PO SCH (06:06)
[2023-02-05] MEDS: Ipratropium HFA Inhaler (Combivent Respimat P&T Subs) INH SCH ×4 (07:45→19:00)
[2023-02-05] MEDS: Albuterol HFA 8 GM Inhaler (Combivent Respimat P&T Subs) INH SCH ×4 (07:46→19:00)
[2023-02-05] MEDS: DICLOFENAC SOD 1% GEL 100 GM TUBE EXT SCH ×4 (09:16→20:12)
[2023-02-05] MEDS: POTASSIUM CHLORIDE CRTAB 20 MEQ TABCR PO SCH ×2 (09:17→20:14)
[2023-02-05] MEDS: ENOXAPARIN INJ 40 MG/0.4 ML SYR SQ SCH ×2 (09:17→20:11)
[2023-02-05] MEDS: ISOSORBIDE MONO EXTENDED REL 30 MG TABCR PO SCH (09:18)
[2023-02-05] MEDS: DOCUSATE SODIUM/SENNA 50/8.6MG TAB PO SCH (09:18)
[2023-02-05] MEDS: METOPROLOL TARTRATE 25 MG TAB PO SCH ×2 (09:18→20:12)
[2023-02-05] MEDS: MAGNESIUM OXIDE 400 MG TAB PO SCH (09:18)
[2023-02-05] MEDS: FOLIC ACID 1 MG TAB PO SCH (09:18)
[2023-02-05] MEDS: ASPIRIN 81 MG ECTAB PO SCH (09:18)
[2023-02-05] MEDS: TOPIRAMATE 100 MG TAB PO SCH (09:19)
[2023-02-05] MEDS: SERTRALINE HCL 50 MG TABLET PO SCH (09:19)
[2023-02-05] MEDS: SPIRONOLACTONE 25 MG TAB PO SCH (09:19)
[2023-02-05] MEDS: buPROPion SR 100 MG TABCR PO SCH ×2 (09:19→20:11)
[2023-02-05] MEDS: POLYETHYLENE (MIRALAX) 17 GM PACK PO SCH (09:19)
[2023-02-05] MEDS: INSULIN, Rapid-Acting PUMP SCH ×4 (09:19→21:27)
--- NOTE | 2023-02-05 12:32 | Hospitalist Progress Note ---
Date of Service February 05, 2023 Assessment & Plan (1) Failure to thrive: Plan: patient discharged home from the hospital after a long hospital stay However, she fell at least 4 times at home because all the home improvements were not done. She is now agreeable to be placed in SNF Social work on consult, awaiting facilities availability for placement (2) CKD (chronic kidney disease): Plan: Stable . Monitor intake and output. Avoid nephrotoxic agents (3) Adjustment disorder with depressed mood: Plan: Stable on sertraline, topiramate, and Wellbutrin (4) Hypothyroidism (acquired): Plan: Stable on levothyroxine (5) GERD (gastroesophageal reflux disease): Plan: Stable on pantoprazole (6) Insulin-requiring or dependent type II diabetes mellitus: Plan: Continue home insulin pump. Jardiance discontinued on January 25, due to hypoglycemia. Glucose remains well controlled. Sliding scale insulin coverage as needed. ADA diet (7) Chronic diastolic congestive heart failure: Plan: Stable. Continue current medical management. Monitor intake and output Wants her evening bumex before 3pm (8) Chronic respiratory failure: Plan: Stable on RA. Permanent tracheostomy is unremarkable and without signs of infection or drainage . Continue home breathing txs, trach care (9) Dyslipidemia: Plan: Continue statin (10) Constipation: Plan: Now on Miralax and Colace/senna . (11) Left knee pain: Plan: She states the left knee pain started when she fell at home. X-ray is negative for fracture. Continue symptomatic care and physical therapy. (12) Physical deconditioning: Plan: Working with PT was able to stand for 30 seconds then transferred to the chair Plan Anticipate eventual discharge to SNF facility when arrangements are finalized, she is a difficult placement Working with PT Admission and Anticipated Discharge Date Admission Date: January 24, 2023 Subjective patient seen and examined, no new complaints today, was able to participate in therapy Review of Systems Review of Systems: All systems reviewed are negative, apart from the ones contained in the history. Physical Exam Physical Exam: The patient is awake, alert and oriented 3,morbidly obese HEENT--PERRL, EOMI, mucous membranes and oropharynx mildly dry Neck--supple. No JVD. No bruits. Thyroid normal, trachea midline, no adenopathy. Heart--normal S1 and S2. No murmurs, rubs or gallops. Lungs--clear bilaterally, no respiratory distress, no accessory muscle use. Abdomen--normal bowel sounds and soft. Mild epigastric and left sided abdominal pain Extremities--no cyanosis or clubbing. No edema. Dermatologic--normal skin turgor, normal color, no abnormal lymph nodes, no rash. Neurologic--cranial nerves II through XII grossly intact. Rheumatologic--normal range of motion. Psychiatric--normal affect. Results & Data Results & Data Vital Signs (Past 12 Hours) Vital Signs Temp Pulse Pulse Resp BP BP Pulse Ox 02/05/23 11:28 78 20 95 02/05/23 09:14 65 124/66 02/05/23 07:41 02/05/23 07:47 76 18 95 02/05/23 07:25 97.7 F 62 20 115/68 96 O2 Del Method 02/05/23 11:28 Room Air 02/05/23 09:14 02/05/23 07:41 Room Air 02/05/23 07:47 Room Air 02/05/23 07:25 Room Air, Trach Collar PG Care Time/CCT Total # of Minutes Spent Total Time Spent with Patient: Total time spent is greater than 50% in coordination of care (as documented) at patient's floor/unit and/or counseling patient: Coding Level of Care Code 47522 SUB INP/OBS CARE 12/15MIN Diagnoses Failure to thrive CKD (chronic kidney disease) N18.9 Adjustment disorder with depressed mood F43.21 Hypothyroidism (acquired) E03.9 GERD (gastroesophageal reflux disease) K21.9 Insulin-requiring or dependent type II diabetes mellitus E11.9; Z79.4 Chronic diastolic congestive heart failure I50.32 Chronic respiratory failure J96.10 Respiratory failure complication: unspecified whether with hypoxia or hypercapnia Dyslipidemia E78.5 Constipation K59.00 Left knee pain M25.562 Physical deconditioning R53.81 Time Spent (min) 25 (8) Chronic respiratory failure Respiratory failure complication: unspecified whether with hypoxia or hypercapnia Qualified Code(s): J96.10 - Chronic respiratory failure, unspecified whether with hypoxia or hypercapnia
[2023-02-05] MEDS: ATORVASTATIN 40 MG TAB PO SCH (20:10)
[2023-02-05] MEDS: MELATONIN 3 MG TAB PO SCH (20:12)
[2023-02-05] MEDS: oxyCODONE HCL IR 5 MG TAB (IMMEDIATE RELEASE) PO PRN (22:02)
[2023-02-06] MEDS: PANTOprazole 40 MG TAB PO SCH (06:22)
[2023-02-06] MEDS: TORSEMIDE 10 MG TAB PO SCH ×2 (06:22→14:29)
[2023-02-06] MEDS: LEVOTHYROXINE SODIUM 75 MCG TABLET PO SCH (06:22)
[2023-02-06] MEDS: Ipratropium HFA Inhaler (Combivent Respimat P&T Subs) INH SCH ×4 (07:51→19:15)
[2023-02-06] MEDS: Albuterol HFA 8 GM Inhaler (Combivent Respimat P&T Subs) INH SCH ×4 (07:51→19:15)
[2023-02-06] MEDS: POTASSIUM CHLORIDE CRTAB 20 MEQ TABCR PO SCH ×2 (09:20→21:09)
[2023-02-06] MEDS: buPROPion SR 100 MG TABCR PO SCH ×2 (09:21→21:10)
[2023-02-06] MEDS: METOPROLOL TARTRATE 25 MG TAB PO SCH ×2 (09:21→21:10)
[2023-02-06] MEDS: ISOSORBIDE MONO EXTENDED REL 30 MG TABCR PO SCH (09:21)
[2023-02-06] MEDS: MAGNESIUM OXIDE 400 MG TAB PO SCH (09:21)
[2023-02-06] MEDS: TOPIRAMATE 100 MG TAB PO SCH (09:21)
[2023-02-06] MEDS: SPIRONOLACTONE 25 MG TAB PO SCH (09:21)
[2023-02-06] MEDS: DOCUSATE SODIUM/SENNA 50/8.6MG TAB PO SCH (09:22)
[2023-02-06] MEDS: DICLOFENAC SOD 1% GEL 100 GM TUBE EXT SCH ×4 (09:22→21:11)
[2023-02-06] MEDS: ASPIRIN 81 MG ECTAB PO SCH (09:22)
[2023-02-06] MEDS: SERTRALINE HCL 50 MG TABLET PO SCH (09:22)
[2023-02-06] MEDS: FOLIC ACID 1 MG TAB PO SCH (09:22)
[2023-02-06] MEDS: ENOXAPARIN INJ 40 MG/0.4 ML SYR SQ SCH ×2 (09:23→21:09)
[2023-02-06] MEDS: POLYETHYLENE (MIRALAX) 17 GM PACK PO SCH (09:23)
[2023-02-06] MEDS: INSULIN, Rapid-Acting PUMP SCH ×4 (09:23→21:13)
--- NOTE | 2023-02-06 11:01 | Hospitalist Progress Note ---
Date of Service February 06, 2023 Assessment & Plan (1) Failure to thrive: Plan: patient discharged home from the hospital after a long hospital stay However, she fell at least 4 times at home because all the home improvements were not done. She is now agreeable to be placed in SNF Social work on consult, awaiting facilities availability for placement (2) CKD (chronic kidney disease): Plan: Stable . Monitor intake and output. Avoid nephrotoxic agents (3) Adjustment disorder with depressed mood: Plan: Stable on sertraline, topiramate, and Wellbutrin (4) Hypothyroidism (acquired): Plan: Stable on levothyroxine (5) GERD (gastroesophageal reflux disease): Plan: Stable on pantoprazole (6) Insulin-requiring or dependent type II diabetes mellitus: Plan: Continue home insulin pump. Jardiance discontinued on January 25, due to hypoglycemia. Glucose remains well controlled. Sliding scale insulin coverage as needed. ADA diet (7) Chronic diastolic congestive heart failure: Plan: Stable. Continue current medical management. Monitor intake and output Wants her evening bumex before 3pm (8) Chronic respiratory failure: Plan: Stable on RA. Permanent tracheostomy is unremarkable and without signs of infection or drainage . Continue home breathing txs, trach care (9) Dyslipidemia: Plan: Continue home statin (10) Constipation: Plan: Now on Miralax and Colace/senna . (11) Left knee pain: Plan: She states the left knee pain started when she fell at home. X-ray is negative for fracture. Continue symptomatic care and physical therapy. (12) Physical deconditioning: Plan: Working with PT Plan Anticipate eventual discharge to SNF facility when arrangements are finalized, she is a difficult placement Working with PT Admission and Anticipated Discharge Date Admission Date: January 24, 2023 Subjective patient seen and examined, no new complaints today, was able to participate in therapy, sits in the chair for several hours Review of Systems Review of Systems: All systems reviewed are negative, apart from the ones contained in the history. Physical Exam Physical Exam: The patient is awake, alert and oriented 3,morbidly obese HEENT--PERRL, EOMI, mucous membranes and oropharynx mildly dry Neck--supple. No JVD. No bruits. Thyroid normal, trachea midline, no adenopathy. Heart--normal S1 and S2. No murmurs, rubs or gallops. Lungs--clear bilaterally, no respiratory distress, no accessory muscle use. Abdomen--normal bowel sounds and soft. Mild epigastric and left sided abdominal pain Extremities--no cyanosis or clubbing. No edema. Dermatologic--normal skin turgor, normal color, no abnormal lymph nodes, no rash. Neurologic--cranial nerves II through XII grossly intact. Rheumatologic--normal range of motion. Psychiatric--normal affect. Results & Data Results & Data Vital Signs (Past 12 Hours) Vital Signs Temp Pulse Resp BP Pulse Ox O2 Del Method O2 Flow Rate 02/06/23 07:20 Room Air 02/06/23 09:19 76 121/62 02/06/23 07:51 86 20 94 Room Air 02/06/23 07:20 98.1 F 66 19 117/71 95 Room Air 02/06/23 02:27 18 98 Trach Collar 6 FiO2 02/06/23 07:20 02/06/23 09:19 02/06/23 07:51 02/06/23 07:20 02/06/23 02:27 28 PG Care Time/CCT Total # of Minutes Spent Total Time Spent with Patient: Total time spent is greater than 50% in coordination of care (as documented) at patient's floor/unit and/or counseling patient: Coding Level of Care Code 03752 SUB INP/OBS CARE 12/15MIN Diagnoses Failure to thrive CKD (chronic kidney disease) N18.9 Adjustment disorder with depressed mood F43.21 Hypothyroidism (acquired) E03.9 GERD (gastroesophageal reflux disease) K21.9 Insulin-requiring or dependent type II diabetes mellitus E11.9; Z79.4 Chronic diastolic congestive heart failure I50.32 Chronic respiratory failure J96.10 Respiratory failure complication: unspecified whether with hypoxia or hypercapnia Dyslipidemia E78.5 Constipation K59.00 Left knee pain M25.562 Physical deconditioning R53.81 Time Spent (min) 25 (8) Chronic respiratory failure Respiratory failure complication: unspecified whether with hypoxia or hypercapnia Qualified Code(s): J96.10 - Chronic respiratory failure, unspecified whether with hypoxia or hypercapnia
[2023-02-06] MEDS: MELATONIN 3 MG TAB PO SCH (21:09)
[2023-02-06] MEDS: ATORVASTATIN 40 MG TAB PO SCH (21:10)
[2023-02-06] MEDS: ALUMINUM/MAGNESIUM SUSP 30 ML UDC PO PRN (22:03)
[2023-02-07] MEDS: oxyCODONE HCL IR 5 MG TAB (IMMEDIATE RELEASE) PO PRN (02:48)
[2023-02-07] MEDS: LEVOTHYROXINE SODIUM 75 MCG TABLET PO SCH (06:16)
[2023-02-07] MEDS: PANTOprazole 40 MG TAB PO SCH (06:17)
[2023-02-07] MEDS: Albuterol HFA 8 GM Inhaler (Combivent Respimat P&T Subs) INH SCH ×4 (07:22→19:07)
[2023-02-07] MEDS: Ipratropium HFA Inhaler (Combivent Respimat P&T Subs) INH SCH ×4 (07:22→19:07)
[2023-02-07] MEDS: METOPROLOL TARTRATE 25 MG TAB PO SCH ×2 (09:05→21:56)
[2023-02-07] MEDS: POTASSIUM CHLORIDE CRTAB 20 MEQ TABCR PO SCH ×2 (09:05→21:48)
[2023-02-07] MEDS: TOPIRAMATE 100 MG TAB PO SCH (09:05)
[2023-02-07] MEDS: FOLIC ACID 1 MG TAB PO SCH (09:05)
[2023-02-07] MEDS: SPIRONOLACTONE 25 MG TAB PO SCH (09:05)
[2023-02-07] MEDS: ASPIRIN 81 MG ECTAB PO SCH (09:06)
[2023-02-07] MEDS: ISOSORBIDE MONO EXTENDED REL 30 MG TABCR PO SCH (09:06)
[2023-02-07] MEDS: buPROPion SR 100 MG TABCR PO SCH ×2 (09:06→21:48)
[2023-02-07] MEDS: MAGNESIUM OXIDE 400 MG TAB PO SCH (09:06)
[2023-02-07] MEDS: TORSEMIDE 10 MG TAB PO SCH ×2 (09:06→14:04)
[2023-02-07] MEDS: SERTRALINE HCL 50 MG TABLET PO SCH (09:06)
[2023-02-07] MEDS: ENOXAPARIN INJ 40 MG/0.4 ML SYR SQ SCH ×2 (09:06→21:47)
[2023-02-07] MEDS: AZITHROMYCIN 250 MG TAB PO SCH (09:06)
[2023-02-07] MEDS: INSULIN, Rapid-Acting PUMP SCH ×4 (09:07→21:58)
[2023-02-07] MEDS: DICLOFENAC SOD 1% GEL 100 GM TUBE EXT SCH ×4 (09:07→21:47)
[2023-02-07] MEDS: POLYETHYLENE (MIRALAX) 17 GM PACK PO SCH (09:08)
[2023-02-07] MEDS: DOCUSATE SODIUM/SENNA 50/8.6MG TAB PO SCH (09:08)
--- NOTE | 2023-02-07 14:40 | Hospitalist Progress Note ---
Date of Service February 07, 2023 Assessment & Plan (1) Failure to thrive: Plan: Multiple falls at home prompted the patient to be readmitted. SNF placement is now pending. However, presence of metal permanent tracheostomy and her morbid obesity are limiting factors with placement. Appreciate case management assistance (2) CKD (chronic kidney disease): Plan: Stable . Monitor intake and output. Avoid nephrotoxic agents (3) Adjustment disorder with depressed mood: Plan: Stable on sertraline, topiramate, and Wellbutrin (4) Hypothyroidism (acquired): Plan: Stable on levothyroxine (5) GERD (gastroesophageal reflux disease): Plan: Stable on pantoprazole (6) Insulin-requiring or dependent type II diabetes mellitus: Plan: Continue home insulin pump. Jardiance discontinued on January 25, due to hypoglycemia. Glucose remains well controlled. Sliding scale insulin coverage as needed. ADA diet (7) Chronic diastolic congestive heart failure: Plan: Stable. Continue current medical management. Monitor intake and output (8) Chronic respiratory failure: Plan: Stable on RA. Permanent tracheostomy is unremarkable and without signs of infection or drainage . Continue home breathing txs, trach care (9) Dyslipidemia: Plan: Continue home statin (10) Constipation: Plan: Now on Miralax and Colace/senna . (11) Left knee pain: Plan: She states the left knee pain started when she fell at home. X-ray is negative for fracture. Continue symptomatic care and physical therapy. (12) Physical deconditioning: Plan: Working with PT Plan Anticipate eventual discharge to SNF facility when arrangements are finalized Admission and Anticipated Discharge Date Admission Date: January 24, 2023 Subjective Alert and oriented. No new findings. No acute distress. Vital signs are stable. 93% oxygen saturation on room air. Glucose 115. Placement is pending. Review of Systems Review of Systems: Constitutional-no fever or chills. Morbidly obese ENT-no blurred vision, no double vision, no epistaxis, no sore throat Respiratory-no cough, no wheezing, no shortness of breath Cardiac-no palpitations, no chest pain, no syncope GI-no nausea, vomiting, diarrhea, melena, hematochezia -no urinary retention, no urinary incontinence, no dysuria, no hematuria Musculoskeletal-no joint pain, no muscle tenderness Skin-no bruising, no rashes, no pruritus Neuro-no isolated weakness, no paresthesia, no weakness Psych-no depression, no anxiety Physical Exam Physical Exam: General-alert and oriented x3, no fevers, no chills. Morbidly obese HEENT-head atraumatic and normocephalic, pupils equal and reactive to light, extraocular muscles intact Neck-no lymphadenopathy or thyromegaly, trachea midline. Permanent metal tracheostomy present Chest-clear to auscultation percussion. No rales wheezing or rhonchi Cardiac-regular rate and rhythm, normal S1 and S2 Abdomen-normal bowel sounds, nontender, no hepatosplenomegaly Extremities-known nonunion distal right femur fracture Neuro-cranial nerves II through XII intact, motor and sensory function within normal limits, strength symmetrical , no focal deficits Psych-normal affect, normal mood Results & Data Results & Data Vital Signs (Past 12 Hours) Vital Signs Temp Pulse Resp BP Pulse Ox O2 Del Method 02/07/23 11:07 61 18 92 Room Air 02/07/23 07:50 Room Air, Trach Collar 02/07/23 07:50 36.9 C 61 18 127/69 95 Room Air 02/07/23 07:22 63 20 93 Room Air Laboratory Results 01/28/23 07:51 01/28/23 07:51 PG Care Time/CCT Total # of Minutes Spent Total Time Spent with Patient: Total time spent is greater than 50% in coordination of care (as documented) at patient's floor/unit and/or counseling patient: Coding Level of Care Code 01070 SUB INP/OBS CARE 2/35MIN Diagnoses Failure to thrive CKD (chronic kidney disease) N18.9 Adjustment disorder with depressed mood F43.21 Hypothyroidism (acquired) E03.9 GERD (gastroesophageal reflux disease) K21.9 Insulin-requiring or dependent type II diabetes mellitus E11.9; Z79.4 Chronic diastolic congestive heart failure I50.32 Chronic respiratory failure J96.10 Respiratory failure complication: unspecified whether with hypoxia or hypercapnia Dyslipidemia E78.5 Constipation K59.00 Left knee pain M25.562 Physical deconditioning R53.81 (8) Chronic respiratory failure Respiratory failure complication: unspecified whether with hypoxia or hypercapnia Qualified Code(s): J96.10 - Chronic respiratory failure, unspecified whether with hypoxia or hypercapnia
[2023-02-07] MEDS: ATORVASTATIN 40 MG TAB PO SCH (21:48)
[2023-02-07] MEDS: MELATONIN 3 MG TAB PO SCH (21:48)
[2023-02-08] MEDS: LEVOTHYROXINE SODIUM 75 MCG TABLET PO SCH (06:34)
[2023-02-08] MEDS: PANTOprazole 40 MG TAB PO SCH (06:34)
[2023-02-08] MEDS: TORSEMIDE 10 MG TAB PO SCH ×2 (06:35→16:00)
[2023-02-08] MEDS: Albuterol HFA 8 GM Inhaler (Combivent Respimat P&T Subs) INH SCH ×4 (07:11→19:25)
[2023-02-08] MEDS: Ipratropium HFA Inhaler (Combivent Respimat P&T Subs) INH SCH ×4 (07:11→19:25)
[2023-02-08] MEDS: TOPIRAMATE 100 MG TAB PO SCH (08:54)
[2023-02-08] MEDS: POTASSIUM CHLORIDE CRTAB 20 MEQ TABCR PO SCH ×2 (08:55→21:45)
[2023-02-08] MEDS: FOLIC ACID 1 MG TAB PO SCH (08:55)
[2023-02-08] MEDS: ASPIRIN 81 MG ECTAB PO SCH (08:55)
[2023-02-08] MEDS: SERTRALINE HCL 50 MG TABLET PO SCH (08:55)
[2023-02-08] MEDS: SPIRONOLACTONE 25 MG TAB PO SCH (08:55)
[2023-02-08] MEDS: ISOSORBIDE MONO EXTENDED REL 30 MG TABCR PO SCH (08:55)
[2023-02-08] MEDS: buPROPion SR 100 MG TABCR PO SCH ×2 (08:55→21:42)
[2023-02-08] MEDS: METOPROLOL TARTRATE 25 MG TAB PO SCH ×2 (08:55→21:45)
[2023-02-08] MEDS: DICLOFENAC SOD 1% GEL 100 GM TUBE EXT SCH ×4 (08:55→21:43)
[2023-02-08] MEDS: MAGNESIUM OXIDE 400 MG TAB PO SCH (08:55)
[2023-02-08] MEDS: DOCUSATE SODIUM/SENNA 50/8.6MG TAB PO SCH (08:56)
[2023-02-08] MEDS: ENOXAPARIN INJ 40 MG/0.4 ML SYR SQ SCH ×2 (08:56→21:43)
[2023-02-08] MEDS: POLYETHYLENE (MIRALAX) 17 GM PACK PO SCH (08:56)
[2023-02-08] MEDS: INSULIN, Rapid-Acting PUMP SCH ×4 (09:22→21:44)
--- NOTE | 2023-02-08 14:33 | Hospitalist Progress Note ---
Date of Service February 08, 2023 Assessment & Plan (1) Failure to thrive: Plan: Multiple falls at home prompted the patient to be readmitted. SNF placement is now pending. However, presence of metal permanent tracheostomy and her morbid obesity are limiting factors with placement. Appreciate case management assistance (2) CKD (chronic kidney disease): Plan: Stable . Monitor intake and output. Avoid nephrotoxic agents (3) Adjustment disorder with depressed mood: Plan: Stable on sertraline, topiramate, and Wellbutrin (4) Hypothyroidism (acquired): Plan: Stable on levothyroxine (5) GERD (gastroesophageal reflux disease): Plan: Stable on pantoprazole (6) Insulin-requiring or dependent type II diabetes mellitus: Plan: Continue home insulin pump. Jardiance discontinued on January 25, due to hypoglycemia. Glucose remains well controlled. Sliding scale insulin coverage as needed. ADA diet (7) Chronic diastolic congestive heart failure: Plan: Stable. Continue current medical management. Monitor intake and output (8) Chronic respiratory failure: Plan: Stable on RA. Permanent tracheostomy is unremarkable and without signs of infection or drainage . Continue home breathing txs, trach care (9) Dyslipidemia: Plan: Continue home statin (10) Constipation: Plan: Now on Miralax and Colace/senna . (11) Left knee pain: Plan: She states the left knee pain started when she fell at home. X-ray is negative for fracture. Continue symptomatic care and physical therapy. (12) Physical deconditioning: Plan: Working with PT Plan Anticipate eventual discharge to SNF facility when arrangements are finalized Admission and Anticipated Discharge Date Admission Date: January 24, 2023 Subjective Alert and oriented. Afebrile. Vital signs stable. 95% oxygen saturation on room air. No new problems. Awaiting placement Review of Systems Review of Systems: Constitutional-no fever or chills. Morbidly obese ENT-no blurred vision, no double vision, no epistaxis, no sore throat Respiratory-no cough, no wheezing, no shortness of breath Cardiac-no palpitations, no chest pain, no syncope GI-no nausea, vomiting, diarrhea, melena, hematochezia -no urinary retention, no urinary incontinence, no dysuria, no hematuria Musculoskeletal-no joint pain, no muscle tenderness Skin-no bruising, no rashes, no pruritus Neuro-no isolated weakness, no paresthesia, no weakness Psych-no depression, no anxiety Physical Exam Physical Exam: General-alert and oriented x3, no fevers, no chills. Morbidly obese HEENT-head atraumatic and normocephalic, pupils equal and reactive to light, extraocular muscles intact Neck-no lymphadenopathy or thyromegaly, trachea midline. Permanent metal tracheostomy present Chest-clear to auscultation percussion. No rales wheezing or rhonchi Cardiac-regular rate and rhythm, normal S1 and S2 Abdomen-normal bowel sounds, nontender, no hepatosplenomegaly Extremities-known nonunion distal right femur fracture Neuro-cranial nerves II through XII intact, motor and sensory function within normal limits, strength symmetrical , no focal deficits Psych-normal affect, normal mood Results & Data Results & Data Vital Signs (Past 12 Hours) Vital Signs Temp Pulse Resp BP BP Pulse Ox O2 Del Method 02/08/23 11:54 36.8 C 66 28 H 146/78 H 94 Room Air 02/08/23 11:17 69 16 94 Room Air 02/08/23 07:20 Room Air, Trach Collar 02/08/23 08:19 36.9 C 64 18 143/74 H 95 Room Air 02/08/23 07:54 36.9 C 64 28 H 143/74 H 98 Room Air 02/08/23 07:11 62 18 95 Room Air Laboratory Results 01/28/23 07:51 01/28/23 07:51 PG Care Time/CCT Total # of Minutes Spent Total Time Spent with Patient: Total time spent is greater than 50% in coordination of care (as documented) at patient's floor/unit and/or counseling patient: Coding Level of Care Code 49651 SUB INP/OBS CARE 2/35MIN Diagnoses Failure to thrive CKD (chronic kidney disease) N18.9 Adjustment disorder with depressed mood F43.21 Hypothyroidism (acquired) E03.9 GERD (gastroesophageal reflux disease) K21.9 Insulin-requiring or dependent type II diabetes mellitus E11.9; Z79.4 Chronic diastolic congestive heart failure I50.32 Chronic respiratory failure J96.10 Respiratory failure complication: unspecified whether with hypoxia or hypercapnia Dyslipidemia E78.5 Constipation K59.00 Left knee pain M25.562 Physical deconditioning R53.81 (8) Chronic respiratory failure Respiratory failure complication: unspecified whether with hypoxia or hypercapnia Qualified Code(s): J96.10 - Chronic respiratory failure, unspecified whether with hypoxia or hypercapnia
[2023-02-08] MEDS: ATORVASTATIN 40 MG TAB PO SCH (21:42)
[2023-02-08] MEDS: MELATONIN 3 MG TAB PO SCH (21:44)
[2023-02-09] MEDS: oxyCODONE HCL IR 5 MG TAB (IMMEDIATE RELEASE) PO PRN ×2 (00:10→23:58)
[2023-02-09] MEDS: LEVOTHYROXINE SODIUM 75 MCG TABLET PO SCH (06:11)
[2023-02-09] MEDS: TORSEMIDE 10 MG TAB PO SCH ×3 (06:12→17:17)
[2023-02-09] MEDS: PANTOprazole 40 MG TAB PO SCH (06:12)
[2023-02-09] MEDS: Ipratropium HFA Inhaler (Combivent Respimat P&T Subs) INH SCH ×4 (07:31→19:14)
[2023-02-09] MEDS: Albuterol HFA 8 GM Inhaler (Combivent Respimat P&T Subs) INH SCH ×4 (07:31→19:14)
[2023-02-09] MEDS: ISOSORBIDE MONO EXTENDED REL 30 MG TABCR PO SCH (08:39)
[2023-02-09] MEDS: METOPROLOL TARTRATE 25 MG TAB PO SCH ×2 (08:39→20:17)
[2023-02-09] MEDS: SPIRONOLACTONE 25 MG TAB PO SCH (08:40)
[2023-02-09] MEDS: DICLOFENAC SOD 1% GEL 100 GM TUBE EXT SCH ×4 (08:40→20:13)
[2023-02-09] MEDS: buPROPion SR 100 MG TABCR PO SCH ×2 (08:40→20:12)
[2023-02-09] MEDS: SERTRALINE HCL 50 MG TABLET PO SCH (08:40)
[2023-02-09] MEDS: AZITHROMYCIN 250 MG TAB PO SCH (08:40)
[2023-02-09] MEDS: MAGNESIUM OXIDE 400 MG TAB PO SCH (08:40)
[2023-02-09] MEDS: FOLIC ACID 1 MG TAB PO SCH (08:40)
[2023-02-09] MEDS: ASPIRIN 81 MG ECTAB PO SCH (08:40)
[2023-02-09] MEDS: POTASSIUM CHLORIDE CRTAB 20 MEQ TABCR PO SCH ×2 (08:40→20:14)
[2023-02-09] MEDS: TOPIRAMATE 100 MG TAB PO SCH (08:40)
[2023-02-09] MEDS: POLYETHYLENE (MIRALAX) 17 GM PACK PO SCH (08:41)
[2023-02-09] MEDS: ENOXAPARIN INJ 40 MG/0.4 ML SYR SQ SCH ×2 (08:41→20:13)
[2023-02-09] MEDS: DOCUSATE SODIUM/SENNA 50/8.6MG TAB PO SCH (08:41)
[2023-02-09] MEDS: INSULIN, Rapid-Acting PUMP SCH ×4 (09:24→20:17)
--- NOTE | 2023-02-09 14:58 | Hospitalist Progress Note ---
Date of Service February 09, 2023 Assessment & Plan (1) Failure to thrive: Plan: Multiple falls at home prompted the patient to be readmitted. SNF placement is now pending. However, presence of metal permanent tracheostomy and her morbid obesity are limiting factors with placement. Appreciate case management assistance (2) CKD (chronic kidney disease): Plan: Stable . Monitor intake and output. Avoid nephrotoxic agents (3) Adjustment disorder with depressed mood: Plan: Stable on sertraline, topiramate, and Wellbutrin (4) Hypothyroidism (acquired): Plan: Stable on levothyroxine (5) GERD (gastroesophageal reflux disease): Plan: Stable on pantoprazole (6) Insulin-requiring or dependent type II diabetes mellitus: Plan: Continue home insulin pump. Jardiance discontinued on January 25, due to hypoglycemia. Glucose remains well controlled. Sliding scale insulin coverage as needed. ADA diet (7) Chronic diastolic congestive heart failure: Plan: Stable. Continue current medical management. Monitor intake and output (8) Chronic respiratory failure: Plan: Stable on RA. Permanent tracheostomy is unremarkable and without signs of infection or drainage . Continue home breathing txs, trach care (9) Dyslipidemia: Plan: Continue home statin (10) Constipation: Plan: Now on Miralax and Colace/senna . (11) Left knee pain: Plan: She states the left knee pain started when she fell at home. X-ray is negative for fracture. Continue symptomatic care and physical therapy. (12) Physical deconditioning: Plan: Working with PT Plan Anticipate eventual discharge to SNF facility when arrangements are finalized Admission and Anticipated Discharge Date Admission Date: January 24, 2023 Subjective Alert and oriented. No new problems. Glucose 108. Vital signs are stable. Review of Systems Review of Systems: Constitutional-no fever or chills. Morbidly obese ENT-no blurred vision, no double vision, no epistaxis, no sore throat Respiratory-no cough, no wheezing, no shortness of breath Cardiac-no palpitations, no chest pain, no syncope GI-no nausea, vomiting, diarrhea, melena, hematochezia -no urinary retention, no urinary incontinence, no dysuria, no hematuria Musculoskeletal-no joint pain, no muscle tenderness Skin-no bruising, no rashes, no pruritus Neuro-no isolated weakness, no paresthesia, no weakness Psych-no depression, no anxiety Physical Exam Physical Exam: General-alert and oriented x3, no fevers, no chills. Morbidly obese HEENT-head atraumatic and normocephalic, pupils equal and reactive to light, extraocular muscles intact Neck-no lymphadenopathy or thyromegaly, trachea midline. Permanent metal tracheostomy present Chest-clear to auscultation percussion. No rales wheezing or rhonchi Cardiac-regular rate and rhythm, normal S1 and S2 Abdomen-normal bowel sounds, nontender, no hepatosplenomegaly Extremities-known nonunion distal right femur fracture Neuro-cranial nerves II through XII intact, motor and sensory function within normal limits, strength symmetrical , no focal deficits Psych-normal affect, normal mood Results & Data Results & Data Vital Signs (Past 12 Hours) Vital Signs Temp Pulse Pulse Resp BP Pulse Ox O2 Del Method 02/09/23 11:16 63 18 97 Room Air 02/09/23 08:00 Room Air 02/09/23 07:54 36.6 C 64 18 155/61 H 96 Room Air 02/09/23 07:38 60 18 98 Room Air 02/09/23 03:24 51 L 16 97 Trach Collar O2 Flow Rate FiO2 02/09/23 11:16 02/09/23 08:00 02/09/23 07:54 02/09/23 07:38 02/09/23 03:24 6 28 Laboratory Results 01/28/23 07:51 01/28/23 07:51 PG Care Time/CCT Total # of Minutes Spent Total Time Spent with Patient: Total time spent is greater than 50% in coordination of care (as documented) at patient's floor/unit and/or counseling patient: Coding Level of Care Code 41988 SUB INP/OBS CARE 2/35MIN Diagnoses Failure to thrive CKD (chronic kidney disease) N18.9 Adjustment disorder with depressed mood F43.21 Hypothyroidism (acquired) E03.9 GERD (gastroesophageal reflux disease) K21.9 Insulin-requiring or dependent type II diabetes mellitus E11.9; Z79.4 Chronic diastolic congestive heart failure I50.32 Chronic respiratory failure J96.10 Respiratory failure complication: unspecified whether with hypoxia or hypercapnia Dyslipidemia E78.5 Constipation K59.00 Left knee pain M25.562 Physical deconditioning R53.81 (8) Chronic respiratory failure Respiratory failure complication: unspecified whether with hypoxia or hypercapnia Qualified Code(s): J96.10 - Chronic respiratory failure, unspecified whether with hypoxia or hypercapnia
[2023-02-09] MEDS: ATORVASTATIN 40 MG TAB PO SCH (20:12)
[2023-02-09] MEDS: MELATONIN 3 MG TAB PO SCH (20:14)
[2023-02-10] MEDS: PANTOprazole 40 MG TAB PO SCH (06:26)
[2023-02-10] MEDS: LEVOTHYROXINE SODIUM 75 MCG TABLET PO SCH (06:26)
[2023-02-10] MEDS: TORSEMIDE 10 MG TAB PO SCH ×2 (06:27→15:26)
[2023-02-10] MEDS: Albuterol HFA 8 GM Inhaler (Combivent Respimat P&T Subs) INH SCH ×4 (07:19→20:00)
[2023-02-10] MEDS: Ipratropium HFA Inhaler (Combivent Respimat P&T Subs) INH SCH ×4 (07:19→20:00)
[2023-02-10] MEDS: DOCUSATE SODIUM/SENNA 50/8.6MG TAB PO SCH (08:57)
[2023-02-10] MEDS: POLYETHYLENE (MIRALAX) 17 GM PACK PO SCH (08:57)
[2023-02-10] MEDS: FOLIC ACID 1 MG TAB PO SCH (08:58)
[2023-02-10] MEDS: POTASSIUM CHLORIDE CRTAB 20 MEQ TABCR PO SCH ×2 (08:58→20:39)
[2023-02-10] MEDS: METOPROLOL TARTRATE 25 MG TAB PO SCH ×2 (08:59→20:39)
[2023-02-10] MEDS: MAGNESIUM OXIDE 400 MG TAB PO SCH (08:59)
[2023-02-10] MEDS: ASPIRIN 81 MG ECTAB PO SCH (08:59)
[2023-02-10] MEDS: ISOSORBIDE MONO EXTENDED REL 30 MG TABCR PO SCH (08:59)
[2023-02-10] MEDS: TOPIRAMATE 100 MG TAB PO SCH (08:59)
[2023-02-10] MEDS: SERTRALINE HCL 50 MG TABLET PO SCH (08:59)
[2023-02-10] MEDS: SPIRONOLACTONE 25 MG TAB PO SCH (08:59)
[2023-02-10] MEDS: buPROPion SR 100 MG TABCR PO SCH ×2 (08:59→20:37)
[2023-02-10] MEDS: ENOXAPARIN INJ 40 MG/0.4 ML SYR SQ SCH ×2 (09:00→20:38)
[2023-02-10] MEDS: DICLOFENAC SOD 1% GEL 100 GM TUBE EXT SCH ×4 (09:00→20:37)
[2023-02-10] MEDS: INSULIN, Rapid-Acting PUMP SCH ×4 (10:51→20:56)
--- NOTE | 2023-02-10 14:13 | Hospitalist Progress Note ---
Date of Service February 10, 2023 Assessment & Plan (1) Failure to thrive: Plan: Multiple falls at home prompted the patient to be readmitted. SNF placement is now pending. However, presence of metal permanent tracheostomy and her morbid obesity are limiting factors with placement. Appreciate case management assistance (2) CKD (chronic kidney disease): Plan: Stable . Monitor intake and output. Avoid nephrotoxic agents (3) Adjustment disorder with depressed mood: Plan: Stable on sertraline, topiramate, and Wellbutrin (4) Hypothyroidism (acquired): Plan: Stable on levothyroxine (5) GERD (gastroesophageal reflux disease): Plan: Stable on pantoprazole (6) Insulin-requiring or dependent type II diabetes mellitus: Plan: Continue home insulin pump. Jardiance discontinued on January 25, due to hypoglycemia. Glucose remains well controlled. Sliding scale insulin coverage as needed. ADA diet (7) Chronic diastolic congestive heart failure: Plan: Stable. Continue current medical management. Monitor intake and output (8) Chronic respiratory failure: Plan: Stable on RA. Permanent tracheostomy is unremarkable and without signs of infection or drainage . Continue home breathing txs, trach care (9) Dyslipidemia: Plan: Continue home statin (10) Constipation: Plan: Now on Miralax and Colace/senna . (11) Left knee pain: Plan: She states the left knee pain started when she fell at home. X-ray is negative for fracture. Continue symptomatic care and physical therapy. (12) Physical deconditioning: Plan: Working with PT Plan Anticipate eventual discharge to SNF facility when arrangements are finalized Admission and Anticipated Discharge Date Admission Date: January 24, 2023 Subjective Alert and oriented. No new problems. Glucose 97 this morning. Afebrile. Vital signs stable Review of Systems Review of Systems: Constitutional-no fever or chills. Morbidly obese ENT-no blurred vision, no double vision, no epistaxis, no sore throat Respiratory-no cough, no wheezing, no shortness of breath Cardiac-no palpitations, no chest pain, no syncope GI-no nausea, vomiting, diarrhea, melena, hematochezia -no urinary retention, no urinary incontinence, no dysuria, no hematuria Musculoskeletal-no joint pain, no muscle tenderness Skin-no bruising, no rashes, no pruritus Neuro-no isolated weakness, no paresthesia, no weakness Psych-no depression, no anxiety Physical Exam Physical Exam: General-alert and oriented x3, no fevers, no chills. Morbidly obese HEENT-head atraumatic and normocephalic, pupils equal and reactive to light, extraocular muscles intact Neck-no lymphadenopathy or thyromegaly, trachea midline. Permanent metal tracheostomy present Chest-clear to auscultation percussion. No rales wheezing or rhonchi Cardiac-regular rate and rhythm, normal S1 and S2 Abdomen-normal bowel sounds, nontender, no hepatosplenomegaly Extremities-known nonunion distal right femur fracture Neuro-cranial nerves II through XII intact, motor and sensory function within normal limits, strength symmetrical , no focal deficits Psych-normal affect, normal mood Results & Data Results & Data Vital Signs (Past 12 Hours) Vital Signs Temp Pulse Resp BP Pulse Ox O2 Del Method 02/10/23 11:21 61 18 97 Room Air 02/10/23 08:00 Room Air 02/10/23 07:41 36.6 C 61 19 132/73 94 Room Air 02/10/23 07:20 82 18 94 Room Air Laboratory Results 01/28/23 07:51 01/28/23 07:51 PG Care Time/CCT Total # of Minutes Spent Total Time Spent with Patient: Total time spent is greater than 50% in coordination of care (as documented) at patient's floor/unit and/or counseling patient: Coding Level of Care Code 49566 SUB INP/OBS CARE 2/35MIN Diagnoses Failure to thrive CKD (chronic kidney disease) N18.9 Adjustment disorder with depressed mood F43.21 Hypothyroidism (acquired) E03.9 GERD (gastroesophageal reflux disease) K21.9 Insulin-requiring or dependent type II diabetes mellitus E11.9; Z79.4 Chronic diastolic congestive heart failure I50.32 Chronic respiratory failure J96.10 Respiratory failure complication: unspecified whether with hypoxia or hypercapnia Dyslipidemia E78.5 Constipation K59.00 Left knee pain M25.562 Physical deconditioning R53.81 (8) Chronic respiratory failure Respiratory failure complication: unspecified whether with hypoxia or hypercapnia Qualified Code(s): J96.10 - Chronic respiratory failure, unspecified whether with hypoxia or hypercapnia
[2023-02-10] MEDS: ATORVASTATIN 40 MG TAB PO SCH (20:36)
[2023-02-10] MEDS: MELATONIN 3 MG TAB PO SCH (20:44)
[2023-02-11] MEDS: oxyCODONE HCL IR 5 MG TAB (IMMEDIATE RELEASE) PO PRN (00:42)
[2023-02-11] MEDS: ALUMINUM/MAGNESIUM SUSP 30 ML UDC PO PRN (00:46)
[2023-02-11] MEDS: LEVOTHYROXINE SODIUM 75 MCG TABLET PO SCH (06:13)
[2023-02-11] MEDS: PANTOprazole 40 MG TAB PO SCH (06:13)
[2023-02-11] MEDS: TORSEMIDE 10 MG TAB PO SCH ×2 (06:13→14:39)
[2023-02-11] MEDS: Ipratropium HFA Inhaler (Combivent Respimat P&T Subs) INH SCH ×4 (07:40→18:52)
[2023-02-11] MEDS: Albuterol HFA 8 GM Inhaler (Combivent Respimat P&T Subs) INH SCH ×4 (07:41→18:51)
[2023-02-11] MEDS: INSULIN, Rapid-Acting PUMP SCH ×4 (08:15→21:00)
[2023-02-11] MEDS: METOPROLOL TARTRATE 25 MG TAB PO SCH ×2 (09:54→21:00)
[2023-02-11] MEDS: POTASSIUM CHLORIDE CRTAB 20 MEQ TABCR PO SCH ×2 (09:55→20:58)
[2023-02-11] MEDS: AZITHROMYCIN 250 MG TAB PO SCH (09:56)
[2023-02-11] MEDS: buPROPion SR 100 MG TABCR PO SCH ×2 (09:56→20:59)
[2023-02-11] MEDS: SPIRONOLACTONE 25 MG TAB PO SCH (09:56)
[2023-02-11] MEDS: SERTRALINE HCL 50 MG TABLET PO SCH (09:57)
[2023-02-11] MEDS: FOLIC ACID 1 MG TAB PO SCH (09:57)
[2023-02-11] MEDS: ASPIRIN 81 MG ECTAB PO SCH (09:57)
[2023-02-11] MEDS: MAGNESIUM OXIDE 400 MG TAB PO SCH (09:58)
[2023-02-11] MEDS: TOPIRAMATE 100 MG TAB PO SCH (09:58)
[2023-02-11] MEDS: ISOSORBIDE MONO EXTENDED REL 30 MG TABCR PO SCH (09:58)
[2023-02-11] MEDS: DICLOFENAC SOD 1% GEL 100 GM TUBE EXT SCH ×4 (09:59→21:01)
[2023-02-11] MEDS: POLYETHYLENE (MIRALAX) 17 GM PACK PO SCH (09:59)
[2023-02-11] MEDS: ENOXAPARIN INJ 40 MG/0.4 ML SYR SQ SCH ×2 (09:59→21:00)
[2023-02-11] MEDS: DOCUSATE SODIUM/SENNA 50/8.6MG TAB PO SCH (09:59)
--- NOTE | 2023-02-11 15:26 | Hospitalist Progress Note ---
Date of Service February 11, 2023 Assessment & Plan (1) Failure to thrive: Plan: Multiple falls at home prompted the patient to be readmitted. SNF placement is now pending. However, presence of metal permanent tracheostomy and her morbid obesity are limiting factors with placement. Appreciate case management assistance (2) CKD (chronic kidney disease): Plan: Stable . Monitor intake and output. Avoid nephrotoxic agents (3) Adjustment disorder with depressed mood: Plan: Stable on sertraline, topiramate, and Wellbutrin (4) Hypothyroidism (acquired): Plan: Stable on levothyroxine (5) GERD (gastroesophageal reflux disease): Plan: Stable on pantoprazole (6) Insulin-requiring or dependent type II diabetes mellitus: Plan: Continue home insulin pump. Jardiance discontinued on January 25, due to hypoglycemia. Glucose remains well controlled. Sliding scale insulin coverage as needed. ADA diet (7) Chronic diastolic congestive heart failure: Plan: Stable. Continue current medical management. Monitor intake and output (8) Chronic respiratory failure: Plan: Stable on RA. Permanent tracheostomy is unremarkable and without signs of infection or drainage. She refuses to consider transition from metal trach to plastic trach. Continue home breathing txs, trach care (9) Dyslipidemia: Plan: Continue home statin (10) Constipation: Plan: Now on Miralax and Colace/senna . (11) Left knee pain: Plan: She states the left knee pain started when she fell at home. X-ray is negative for fracture. Continue symptomatic care and physical therapy. (12) Physical deconditioning: Plan: Working with PT Plan Anticipate eventual discharge to SNF facility when arrangements are finalized Admission and Anticipated Discharge Date Admission Date: January 24, 2023 Subjective Alert and oriented. I discussed possible transition from middle trach to plastic trach to assist with placement but she refuses plastic trach. She had this in the past and it caused problems. Glucose stable at 95. No new problems. Vital signs stable Review of Systems Review of Systems: Constitutional-no fever or chills. Morbidly obese ENT-no blurred vision, no double vision, no epistaxis, no sore throat Respiratory-no cough, no wheezing, no shortness of breath Cardiac-no palpitations, no chest pain, no syncope GI-no nausea, vomiting, diarrhea, melena, hematochezia -no urinary retention, no urinary incontinence, no dysuria, no hematuria Musculoskeletal-no joint pain, no muscle tenderness Skin-no bruising, no rashes, no pruritus Neuro-no isolated weakness, no paresthesia, no weakness Psych-no depression, no anxiety Physical Exam Physical Exam: General-alert and oriented x3, no fevers, no chills. Morbidly obese HEENT-head atraumatic and normocephalic, pupils equal and reactive to light, extraocular muscles intact Neck-no lymphadenopathy or thyromegaly, trachea midline. Permanent metal tracheostomy present Chest-clear to auscultation percussion. No rales wheezing or rhonchi Cardiac-regular rate and rhythm, normal S1 and S2 Abdomen-normal bowel sounds, nontender, no hepatosplenomegaly Extremities-known nonunion distal right femur fracture Neuro-cranial nerves II through XII intact, motor and sensory function within normal limits, strength symmetrical , no focal deficits Psych-normal affect, normal mood Results & Data Results & Data Vital Signs (Past 12 Hours) Vital Signs Temp Pulse Resp BP BP Pulse Ox O2 Del Method 02/11/23 15:08 36.8 C 69 18 125/71 95 Room Air 02/11/23 10:49 84 18 94 Room Air 02/11/23 07:49 36.5 C 80 18 122/68 95 Room Air 02/11/23 07:41 82 18 95 Room Air Laboratory Results 01/28/23 07:51 01/28/23 07:51 PG Care Time/CCT Total # of Minutes Spent Total Time Spent with Patient: Total time spent is greater than 50% in coordination of care (as documented) at patient's floor/unit and/or counseling patient: Coding Level of Care Code 82444 SUB INP/OBS CARE 2/35MIN Diagnoses Failure to thrive CKD (chronic kidney disease) N18.9 Adjustment disorder with depressed mood F43.21 Hypothyroidism (acquired) E03.9 GERD (gastroesophageal reflux disease) K21.9 Insulin-requiring or dependent type II diabetes mellitus E11.9; Z79.4 Chronic diastolic congestive heart failure I50.32 Chronic respiratory failure J96.10 Respiratory failure complication: unspecified whether with hypoxia or hypercapnia Dyslipidemia E78.5 Constipation K59.00 Left knee pain M25.562 Physical deconditioning R53.81 (8) Chronic respiratory failure Respiratory failure complication: unspecified whether with hypoxia or hypercapnia Qualified Code(s): J96.10 - Chronic respiratory failure, unspecified whether with hypoxia or hypercapnia
[2023-02-11] MEDS: MELATONIN 3 MG TAB PO SCH (20:59)
[2023-02-11] MEDS: ATORVASTATIN 40 MG TAB PO SCH (21:01)
[2023-02-12] MEDS: TORSEMIDE 10 MG TAB PO SCH ×2 (05:57→15:13)
[2023-02-12] MEDS: PANTOprazole 40 MG TAB PO SCH (05:57)
[2023-02-12] MEDS: LEVOTHYROXINE SODIUM 75 MCG TABLET PO SCH (05:57)
[2023-02-12] MEDS: Albuterol HFA 8 GM Inhaler (Combivent Respimat P&T Subs) INH SCH ×4 (07:34→19:33)
[2023-02-12] MEDS: Ipratropium HFA Inhaler (Combivent Respimat P&T Subs) INH SCH ×4 (07:35→19:33)
[2023-02-12] MEDS: METOPROLOL TARTRATE 25 MG TAB PO SCH ×2 (08:10→21:10)
[2023-02-12] MEDS: SPIRONOLACTONE 25 MG TAB PO SCH (08:10)
[2023-02-12] MEDS: buPROPion SR 100 MG TABCR PO SCH ×2 (08:10→21:10)
[2023-02-12] MEDS: POTASSIUM CHLORIDE CRTAB 20 MEQ TABCR PO SCH ×2 (08:10→21:08)
[2023-02-12] MEDS: MAGNESIUM OXIDE 400 MG TAB PO SCH (08:10)
[2023-02-12] MEDS: SERTRALINE HCL 50 MG TABLET PO SCH (08:10)
[2023-02-12] MEDS: ASPIRIN 81 MG ECTAB PO SCH (08:10)
[2023-02-12] MEDS: TOPIRAMATE 100 MG TAB PO SCH (08:11)
[2023-02-12] MEDS: DOCUSATE SODIUM/SENNA 50/8.6MG TAB PO SCH (08:11)
[2023-02-12] MEDS: ISOSORBIDE MONO EXTENDED REL 30 MG TABCR PO SCH (08:11)
[2023-02-12] MEDS: POLYETHYLENE (MIRALAX) 17 GM PACK PO SCH (08:11)
[2023-02-12] MEDS: ENOXAPARIN INJ 40 MG/0.4 ML SYR SQ SCH ×2 (08:12→21:07)
[2023-02-12] MEDS: DICLOFENAC SOD 1% GEL 100 GM TUBE EXT SCH ×4 (08:12→21:08)
[2023-02-12] MEDS: FOLIC ACID 1 MG TAB PO SCH (08:12)
--- NOTE | 2023-02-12 10:02 | Hospitalist Progress Note ---
Date of Service February 12, 2023 Assessment & Plan (1) Failure to thrive: Plan: Multiple falls at home prompted the patient to be readmitted. SNF placement is now pending. However, presence of metal permanent tracheostomy and her morbid obesity are limiting factors with placement. Appreciate case management assistance (2) CKD (chronic kidney disease): Plan: Stable . Monitor intake and output. Avoid nephrotoxic agents (3) Adjustment disorder with depressed mood: Plan: Stable on sertraline, topiramate, and Wellbutrin (4) Hypothyroidism (acquired): Plan: Stable on levothyroxine (5) GERD (gastroesophageal reflux disease): Plan: Stable on pantoprazole (6) Insulin-requiring or dependent type II diabetes mellitus: Plan: Continue home insulin pump. Jardiance discontinued on January 25, due to hypoglycemia. Glucose remains well controlled. Sliding scale insulin coverage as needed. ADA diet (7) Chronic diastolic congestive heart failure: Plan: Stable. Continue current medical management. Monitor intake and output (8) Chronic respiratory failure: Plan: Stable on RA. Permanent tracheostomy is unremarkable and without signs of infection or drainage. She refuses to consider transition from metal trach to plastic trach. Continue home breathing txs, trach care (9) Dyslipidemia: Plan: Continue home statin (10) Constipation: Plan: Now on Miralax and Colace/senna . (11) Left knee pain: Plan: She states the left knee pain started when she fell at home. X-ray is negative for fracture. Continue symptomatic care and physical therapy. (12) Physical deconditioning: Plan: Working with PT Plan Anticipate eventual discharge to SNF facility when arrangements are finalized Admission and Anticipated Discharge Date Admission Date: January 24, 2023 Subjective Alert and oriented. No new problems. Glucose 124. Afebrile. Vital signs stable Review of Systems Review of Systems: Constitutional-no fever or chills. Morbidly obese ENT-no blurred vision, no double vision, no epistaxis, no sore throat Respiratory-no cough, no wheezing, no shortness of breath Cardiac-no palpitations, no chest pain, no syncope GI-no nausea, vomiting, diarrhea, melena, hematochezia -no urinary retention, no urinary incontinence, no dysuria, no hematuria Musculoskeletal-no joint pain, no muscle tenderness Skin-no bruising, no rashes, no pruritus Neuro-no isolated weakness, no paresthesia, no weakness Psych-no depression, no anxiety Physical Exam Physical Exam: General-alert and oriented x3, no fevers, no chills. Morbidly obese HEENT-head atraumatic and normocephalic, pupils equal and reactive to light, extraocular muscles intact Neck-no lymphadenopathy or thyromegaly, trachea midline. Permanent metal tracheostomy present Chest-clear to auscultation percussion. No rales wheezing or rhonchi Cardiac-regular rate and rhythm, normal S1 and S2 Abdomen-normal bowel sounds, nontender, no hepatosplenomegaly Extremities-known nonunion distal right femur fracture Neuro-cranial nerves II through XII intact, motor and sensory function within normal limits, strength symmetrical , no focal deficits Psych-normal affect, normal mood Results & Data Results & Data Vital Signs (Past 12 Hours) Vital Signs Temp Pulse Resp BP Pulse Ox O2 Del Method 02/12/23 08:06 36.7 C 65 20 129/64 95 Room Air 02/12/23 07:55 68 18 98 Room Air Laboratory Results 01/28/23 07:51 01/28/23 07:51 PG Care Time/CCT Total # of Minutes Spent Total Time Spent with Patient: Total time spent is greater than 50% in coordination of care (as documented) at patient's floor/unit and/or counseling patient: Coding Level of Care Code 05753 SUB INP/OBS CARE 2/35MIN Diagnoses Failure to thrive CKD (chronic kidney disease) N18.9 Adjustment disorder with depressed mood F43.21 Hypothyroidism (acquired) E03.9 GERD (gastroesophageal reflux disease) K21.9 Insulin-requiring or dependent type II diabetes mellitus E11.9; Z79.4 Chronic diastolic congestive heart failure I50.32 Chronic respiratory failure J96.10 Respiratory failure complication: unspecified whether with hypoxia or hypercapnia Dyslipidemia E78.5 Constipation K59.00 Left knee pain M25.562 Physical deconditioning R53.81 (8) Chronic respiratory failure Respiratory failure complication: unspecified whether with hypoxia or hypercapnia Qualified Code(s): J96.10 - Chronic respiratory failure, unspecified whether with hypoxia or hypercapnia
[2023-02-12] MEDS: INSULIN, Rapid-Acting PUMP SCH ×4 (10:11→21:12)
[2023-02-12] MEDS: ATORVASTATIN 40 MG TAB PO SCH (21:08)
[2023-02-12] MEDS: MELATONIN 3 MG TAB PO SCH (21:09)
[2023-02-12] MEDS: ALUMINUM/MAGNESIUM SUSP 30 ML UDC PO PRN (21:46)
[2023-02-13] MEDS: TORSEMIDE 10 MG TAB PO SCH ×2 (05:59→14:09)
[2023-02-13] MEDS: LEVOTHYROXINE SODIUM 75 MCG TABLET PO SCH (05:59)
[2023-02-13] MEDS: PANTOprazole 40 MG TAB PO SCH (06:00)
[2023-02-13] MEDS: Albuterol HFA 8 GM Inhaler (Combivent Respimat P&T Subs) INH SCH ×4 (07:54→19:57)
[2023-02-13] MEDS: Ipratropium HFA Inhaler (Combivent Respimat P&T Subs) INH SCH ×4 (07:54→19:56)
[2023-02-13] MEDS: METOPROLOL TARTRATE 25 MG TAB PO SCH ×2 (08:29→21:03)
[2023-02-13] MEDS: SERTRALINE HCL 50 MG TABLET PO SCH (08:29)
[2023-02-13] MEDS: ISOSORBIDE MONO EXTENDED REL 30 MG TABCR PO SCH (08:30)
[2023-02-13] MEDS: POTASSIUM CHLORIDE CRTAB 20 MEQ TABCR PO SCH ×2 (08:30→21:02)
[2023-02-13] MEDS: ASPIRIN 81 MG ECTAB PO SCH (08:30)
[2023-02-13] MEDS: MAGNESIUM OXIDE 400 MG TAB PO SCH (08:30)
[2023-02-13] MEDS: FOLIC ACID 1 MG TAB PO SCH (08:30)
[2023-02-13] MEDS: TOPIRAMATE 100 MG TAB PO SCH (08:30)
[2023-02-13] MEDS: DOCUSATE SODIUM/SENNA 50/8.6MG TAB PO SCH (08:31)
[2023-02-13] MEDS: DICLOFENAC SOD 1% GEL 100 GM TUBE EXT SCH ×4 (08:31→21:01)
[2023-02-13] MEDS: POLYETHYLENE (MIRALAX) 17 GM PACK PO SCH (08:31)
[2023-02-13] MEDS: buPROPion SR 100 MG TABCR PO SCH ×2 (08:31→21:02)
[2023-02-13] MEDS: SPIRONOLACTONE 25 MG TAB PO SCH (08:31)
[2023-02-13] MEDS: ENOXAPARIN INJ 40 MG/0.4 ML SYR SQ SCH ×2 (08:32→21:01)
[2023-02-13] MEDS: INSULIN, Rapid-Acting PUMP SCH ×4 (09:30→21:03)
--- NOTE | 2023-02-13 14:50 | Hospitalist Progress Note ---
Date of Service February 13, 2023 Assessment & Plan (1) Failure to thrive: Plan: Multiple falls at home prompted the patient to be readmitted. SNF placement is now pending. However, presence of metal permanent tracheostomy and her morbid obesity are limiting factors with placement. Appreciate case management assistance (2) CKD (chronic kidney disease): Plan: Stable . Monitor intake and output. Avoid nephrotoxic agents (3) Adjustment disorder with depressed mood: Plan: Stable on sertraline, topiramate, and Wellbutrin (4) Hypothyroidism (acquired): Plan: Stable on levothyroxine (5) GERD (gastroesophageal reflux disease): Plan: Stable on pantoprazole (6) Insulin-requiring or dependent type II diabetes mellitus: Plan: Continue home insulin pump. Jardiance discontinued on January 25, due to hypoglycemia. Glucose remains well controlled. Sliding scale insulin coverage as needed. ADA diet (7) Chronic diastolic congestive heart failure: Plan: Stable. Continue current medical management. Monitor intake and output (8) Chronic respiratory failure: Plan: Stable on RA. Permanent tracheostomy is unremarkable and without signs of infection or drainage. She refuses to consider transition from metal trach to plastic trach. Continue home breathing txs, trach care (9) Dyslipidemia: Plan: Continue home statin (10) Constipation: Plan: Now on Miralax and Colace/senna . (11) Left knee pain: Plan: She states the left knee pain started when she fell at home. X-ray is negative for fracture. Continue symptomatic care and physical therapy. (12) Physical deconditioning: Plan: Working with PT Plan Anticipate eventual discharge to SNF facility when arrangements are finalized Admission and Anticipated Discharge Date Admission Date: January 24, 2023 Subjective Alert and oriented. No new problems. Glucose 124 fasting this morning Review of Systems Review of Systems: Constitutional-no fever or chills. Morbidly obese ENT-no blurred vision, no double vision, no epistaxis, no sore throat Respiratory-no cough, no wheezing, no shortness of breath Cardiac-no palpitations, no chest pain, no syncope GI-no nausea, vomiting, diarrhea, melena, hematochezia -no urinary retention, no urinary incontinence, no dysuria, no hematuria Musculoskeletal-no joint pain, no muscle tenderness Skin-no bruising, no rashes, no pruritus Neuro-no isolated weakness, no paresthesia, no weakness Psych-no depression, no anxiety Physical Exam Physical Exam: General-alert and oriented x3, no fevers, no chills. Morbidly obese HEENT-head atraumatic and normocephalic, pupils equal and reactive to light, extraocular muscles intact Neck-no lymphadenopathy or thyromegaly, trachea midline. Permanent metal tracheostomy present Chest-clear to auscultation percussion. No rales wheezing or rhonchi Cardiac-regular rate and rhythm, normal S1 and S2 Abdomen-normal bowel sounds, nontender, no hepatosplenomegaly Extremities-known nonunion distal right femur fracture Neuro-cranial nerves II through XII intact, motor and sensory function within normal limits, strength symmetrical , no focal deficits Psych-normal affect, normal mood Results & Data Results & Data Vital Signs (Past 12 Hours) Vital Signs Temp Pulse Resp BP BP Pulse Ox O2 Del Method 02/13/23 14:26 36.9 C 73 20 146/70 H 94 Room Air 02/13/23 11:44 66 18 95 Room Air 02/13/23 07:54 66 18 93 Room Air 02/13/23 07:32 Room Air 02/13/23 07:22 36.8 C 69 20 133/66 94 Room Air Laboratory Results 01/28/23 07:51 01/28/23 07:51 PG Care Time/CCT Total # of Minutes Spent Total Time Spent with Patient: Total time spent is greater than 50% in coordination of care (as documented) at patient's floor/unit and/or counseling patient: Coding Level of Care Code 52205 SUB INP/OBS CARE 2/35MIN Diagnoses Failure to thrive CKD (chronic kidney disease) N18.9 Adjustment disorder with depressed mood F43.21 Hypothyroidism (acquired) E03.9 GERD (gastroesophageal reflux disease) K21.9 Insulin-requiring or dependent type II diabetes mellitus E11.9; Z79.4 Chronic diastolic congestive heart failure I50.32 Chronic respiratory failure J96.10 Respiratory failure complication: unspecified whether with hypoxia or hypercapnia Dyslipidemia E78.5 Constipation K59.00 Left knee pain M25.562 Physical deconditioning R53.81 (8) Chronic respiratory failure Respiratory failure complication: unspecified whether with hypoxia or hypercapnia Qualified Code(s): J96.10 - Chronic respiratory failure, uns pecified whether with hypoxia or hypercapnia
[2023-02-13] MEDS: ATORVASTATIN 40 MG TAB PO SCH (21:02)
[2023-02-13] MEDS: MELATONIN 3 MG TAB PO SCH (21:02)
[2023-02-14] MEDS: LEVOTHYROXINE SODIUM 75 MCG TABLET PO SCH (06:16)
[2023-02-14] MEDS: TORSEMIDE 10 MG TAB PO SCH ×2 (06:16→14:30)
[2023-02-14] MEDS: PANTOprazole 40 MG TAB PO SCH (06:16)
[2023-02-14] MEDS: Albuterol HFA 8 GM Inhaler (Combivent Respimat P&T Subs) INH SCH ×4 (07:55→19:08)
[2023-02-14] MEDS: Ipratropium HFA Inhaler (Combivent Respimat P&T Subs) INH SCH ×4 (07:56→19:09)
[2023-02-14] MEDS: ENOXAPARIN INJ 40 MG/0.4 ML SYR SQ SCH ×2 (09:03→20:02)
[2023-02-14] MEDS: METOPROLOL TARTRATE 25 MG TAB PO SCH ×2 (09:05→20:01)
[2023-02-14] MEDS: ISOSORBIDE MONO EXTENDED REL 30 MG TABCR PO SCH (09:05)
[2023-02-14] MEDS: POLYETHYLENE (MIRALAX) 17 GM PACK PO SCH (09:07)
[2023-02-14] MEDS: DOCUSATE SODIUM/SENNA 50/8.6MG TAB PO SCH (09:07)
[2023-02-14] MEDS: SERTRALINE HCL 50 MG TABLET PO SCH (09:07)
[2023-02-14] MEDS: ASPIRIN 81 MG ECTAB PO SCH (09:07)
[2023-02-14] MEDS: TOPIRAMATE 100 MG TAB PO SCH (09:08)
[2023-02-14] MEDS: SPIRONOLACTONE 25 MG TAB PO SCH (09:08)
[2023-02-14] MEDS: buPROPion SR 100 MG TABCR PO SCH ×2 (09:08→20:00)
[2023-02-14] MEDS: MAGNESIUM OXIDE 400 MG TAB PO SCH (09:09)
[2023-02-14] MEDS: POTASSIUM CHLORIDE CRTAB 20 MEQ TABCR PO SCH ×2 (09:09→20:01)
[2023-02-14] MEDS: DICLOFENAC SOD 1% GEL 100 GM TUBE EXT SCH ×4 (09:10→20:02)
[2023-02-14] MEDS: FOLIC ACID 1 MG TAB PO SCH (09:10)
[2023-02-14] MEDS: AZITHROMYCIN 250 MG TAB PO SCH (09:10)
[2023-02-14] MEDS: INSULIN, Rapid-Acting PUMP SCH ×4 (09:40→21:57)
--- NOTE | 2023-02-14 15:00 | Hospitalist Progress Note ---
Date of Service February 14, 2023 Assessment & Plan (1) Failure to thrive: Plan: Multiple falls at home prompted the patient to be readmitted. SNF placement is now pending. However, presence of metal permanent tracheostomy and her morbid obesity are limiting factors with placement. Appreciate case management assistance (2) CKD (chronic kidney disease): Plan: Stable . Monitor intake and output. 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 Jardiance discontinued on January 25, due to hypoglycemia. Glucose remains well controlled. Sliding scale insulin coverage as needed. ADA diet (7) Chronic diastolic congestive heart failure: Plan: Stable. Continue current medical management. Monitor intake and output (8) Chronic respiratory failure: Plan: Stable on RA. Permanent tracheostomy is unremarkable and without signs of infection or drainage. She refuses to consider transition from metal trach to plastic trach. Continue home breathing txs, trach care (9) Dyslipidemia: Plan: Continue home statin (10) Constipation: Plan: Now on Miralax and Colace/senna . (11) Left knee pain: Plan: She states the left knee pain started when she fell at home. X-ray is negative for fracture. Continue symptomatic care and physical therapy. (12) Physical deconditioning: Plan: Working with PT Plan Anticipate eventual discharge to SNF facility when arrangements are finalized Vs home if lift chair delivered, caregivers arranged, and home modifications completed Admission and Anticipated Discharge Date Admission Date: January 24, 2023 Subjective Pt has no complaints. Physical Exam Constitutional: WD/WN, vitals as above Respiratory: normal respiratory effort, lungs clear to auscultation Cardiovascular: RRR, no murmur, no edema Psychiatric: A+Ox3, euthymic affect Results & Data Results & Data Vital Signs (Past 12 Hours) Vital Signs Temp Pulse Resp BP Pulse Ox O2 Del Method 02/14/23 11:26 68 20 93 Room Air 02/14/23 09:30 Room Air 02/14/23 07:57 64 18 95 Room Air 02/14/23 07:31 36.5 C 64 16 109/66 94 Room Air PG Care Time/CCT Total # of Minutes Spent Total Time Spent with Patient: Total time spent is greater than 50% in coordination of care (as documented) at patient's floor/unit and/or counseling patient: Coding Level of Care Code 58421 SUB INP/OBS CARE 12/15MIN Diagnoses Failure to thrive CKD (chronic kidney disease) N18.9 Adjustment disorder with depressed mood F43.21 Hypothyroidism (acquired) E03.9 GERD (gastroesophageal reflux disease) K21.9 Insulin-requiring or dependent type II diabetes mellitus E11.9; Z79.4 Chronic diastolic congestive heart failure I50.32 Chronic respiratory failure J96.10 Respiratory failure complication: unspecified whether with hypoxia or hypercapnia Dyslipidemia E78.5 Constipation K59.00 Left knee pain M25.562 Physical deconditioning R53.81 (8) Chronic respiratory failure Respiratory failure complication: unspecified whether with hypoxia or hypercapnia Qualified Code(s): J96.10 - Chronic respiratory failure, unspecified whether with hypoxia or hypercapnia
[2023-02-14] MEDS: ATORVASTATIN 40 MG TAB PO SCH (20:00)
[2023-02-14] MEDS: MELATONIN 3 MG TAB PO SCH (20:01)
[2023-02-15] MEDS: LEVOTHYROXINE SODIUM 75 MCG TABLET PO SCH (06:10)
[2023-02-15] MEDS: PANTOprazole 40 MG TAB PO SCH (06:11)
[2023-02-15] MEDS: TORSEMIDE 10 MG TAB PO SCH ×2 (06:15→14:25)
[2023-02-15] MEDS: Albuterol HFA 8 GM Inhaler (Combivent Respimat P&T Subs) INH SCH ×4 (07:55→20:08)
[2023-02-15] MEDS: Ipratropium HFA Inhaler (Combivent Respimat P&T Subs) INH SCH ×4 (07:55→20:08)
[2023-02-15] MEDS: buPROPion SR 100 MG TABCR PO SCH ×2 (09:21→21:49)
[2023-02-15] MEDS: ASPIRIN 81 MG ECTAB PO SCH (09:21)
[2023-02-15] MEDS: ENOXAPARIN INJ 40 MG/0.4 ML SYR SQ SCH ×2 (09:22→21:50)
[2023-02-15] MEDS: DOCUSATE SODIUM/SENNA 50/8.6MG TAB PO SCH (09:22)
[2023-02-15] MEDS: DICLOFENAC SOD 1% GEL 100 GM TUBE EXT SCH ×4 (09:22→21:48)
[2023-02-15] MEDS: MAGNESIUM OXIDE 400 MG TAB PO SCH (09:23)
[2023-02-15] MEDS: FOLIC ACID 1 MG TAB PO SCH (09:23)
[2023-02-15] MEDS: ISOSORBIDE MONO EXTENDED REL 30 MG TABCR PO SCH (09:23)
[2023-02-15] MEDS: POLYETHYLENE (MIRALAX) 17 GM PACK PO SCH (09:24)
[2023-02-15] MEDS: METOPROLOL TARTRATE 25 MG TAB PO SCH ×2 (09:24→21:49)
[2023-02-15] MEDS: SPIRONOLACTONE 25 MG TAB PO SCH (09:25)
[2023-02-15] MEDS: POTASSIUM CHLORIDE CRTAB 20 MEQ TABCR PO SCH ×2 (09:25→21:48)
[2023-02-15] MEDS: SERTRALINE HCL 50 MG TABLET PO SCH (09:25)
[2023-02-15] MEDS: TOPIRAMATE 100 MG TAB PO SCH (09:26)
[2023-02-15] MEDS: INSULIN, Rapid-Acting PUMP SCH ×4 (09:30→21:50)
--- NOTE | 2023-02-15 12:59 | Hospitalist Progress Note ---
Date of Service February 15, 2023 Assessment & Plan (1) Failure to thrive: Plan: Multiple falls at home prompted the patient to be readmitted. SNF placement is now pending. However, presence of metal permanent tracheostomy and her morbid obesity are limiting factors with placement. Appreciate case management assistance (2) CKD (chronic kidney disease): Plan: Stable . Monitor intake and output. 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 Jardiance discontinued on January 25, due to hypoglycemia. Glucose remains well controlled. Sliding scale insulin coverage as needed. ADA diet (7) Chronic diastolic congestive heart failure: Plan: Stable. Continue current medical management. Monitor intake and output (8) Chronic respiratory failure: Plan: Stable on RA. Permanent tracheostomy is unremarkable and without signs of infection or drainage. She refuses to consider transition from metal trach to plastic trach. Continue home breathing txs, trach care (9) Dyslipidemia: Plan: Continue home statin (10) Constipation: Plan: Now on Miralax and Colace/senna . (11) Left knee pain: Plan: She states the left knee pain started when she fell at home. X-ray is negative for fracture. Continue symptomatic care and physical therapy. (12) Physical deconditioning: Plan: Working with PT Plan Anticipate eventual discharge to SNF facility when arrangements are finalized Vs home if lift chair delivered, caregivers arranged, and home modifications completed Admission and Anticipated Discharge Date Admission Date: January 24, 2023 Subjective Pt has no complaints. Physical Exam Constitutional: WD/WN, vitals as above Respiratory: normal respiratory effort, lungs clear to auscultation Cardiovascular: RRR, no murmur, no edema Psychiatric: A+Ox3, euthymic affect Results & Data Results & Data Vital Signs (Past 12 Hours) Vital Signs Temp Pulse Pulse Resp BP Pulse Ox O2 Del Method 02/15/23 10:56 69 18 96 Room Air 02/15/23 09:20 78 131/67 02/15/23 08:12 36.2 C L 64 18 125/72 94 Room Air 02/15/23 07:55 64 18 97 Room Air PG Care Time/CCT Total # of Minutes Spent Total Time Spent with Patient: Total time spent is greater than 50% in coordination of care (as documented) at patient's floor/unit and/or counseling patient: Coding Level of Care Code 97978 SUB INP/OBS CARE Diagnoses Failure to thrive CKD (chronic kidney disease) N18.9 Adjustment disorder with depressed mood F43.21 Hypothyroidism (acquired) E03.9 GERD (gastroesophageal reflux disease) K21.9 Insulin-requiring or dependent type II diabetes mellitus E11.9; Z79.4 Chronic diastolic congestive heart failure I50.32 Chronic respiratory failure J96.10 Respiratory failure complication: unspecified whether with hypoxia or hypercapnia Dyslipidemia E78.5 Constipation K59.00 Left knee pain M25.562 Physical deconditioning R53.81 (8) Chronic respiratory failure Respiratory failure complication: unspecified whether with hypoxia or hypercapnia Qualified Code(s): J96.10 - Chronic respiratory failure, unspecified whether with hypoxia or hypercapnia
[2023-02-15] MEDS: MELATONIN 3 MG TAB PO SCH (21:49)
[2023-02-15] MEDS: ATORVASTATIN 40 MG TAB PO SCH (21:49)
[2023-02-16] MEDS: LEVOTHYROXINE SODIUM 75 MCG TABLET PO SCH (05:44)
[2023-02-16] MEDS: PANTOprazole 40 MG TAB PO SCH (05:44)
[2023-02-16] MEDS: TORSEMIDE 10 MG TAB PO SCH ×2 (05:47→16:21)
[2023-02-16] MEDS: Albuterol HFA 8 GM Inhaler (Combivent Respimat P&T Subs) INH SCH ×4 (07:24→19:39)
[2023-02-16] MEDS: Ipratropium HFA Inhaler (Combivent Respimat P&T Subs) INH SCH ×4 (07:25→19:39)
[2023-02-16] MEDS: INSULIN, Rapid-Acting PUMP SCH ×4 (09:29→22:26)
[2023-02-16] MEDS: DICLOFENAC SOD 1% GEL 100 GM TUBE EXT SCH ×4 (09:33→22:24)
[2023-02-16] MEDS: ASPIRIN 81 MG ECTAB PO SCH (09:33)
[2023-02-16] MEDS: AZITHROMYCIN 250 MG TAB PO SCH (09:33)
[2023-02-16] MEDS: buPROPion SR 100 MG TABCR PO SCH ×2 (09:33→22:22)
[2023-02-16] MEDS: ENOXAPARIN INJ 40 MG/0.4 ML SYR SQ SCH ×2 (09:34→22:23)
[2023-02-16] MEDS: FOLIC ACID 1 MG TAB PO SCH (09:34)
[2023-02-16] MEDS: ISOSORBIDE MONO EXTENDED REL 30 MG TABCR PO SCH (09:35)
[2023-02-16] MEDS: METOPROLOL TARTRATE 25 MG TAB PO SCH ×2 (09:35→22:21)
[2023-02-16] MEDS: MAGNESIUM OXIDE 400 MG TAB PO SCH (09:35)
[2023-02-16] MEDS: POTASSIUM CHLORIDE CRTAB 20 MEQ TABCR PO SCH ×2 (09:36→22:17)
[2023-02-16] MEDS: TOPIRAMATE 100 MG TAB PO SCH (09:36)
[2023-02-16] MEDS: POLYETHYLENE (MIRALAX) 17 GM PACK PO SCH (09:36)
[2023-02-16] MEDS: SPIRONOLACTONE 25 MG TAB PO SCH (09:36)
[2023-02-16] MEDS: SERTRALINE HCL 50 MG TABLET PO SCH (09:36)
[2023-02-16] MEDS: DOCUSATE SODIUM/SENNA 50/8.6MG TAB PO SCH (09:43)
--- NOTE | 2023-02-16 18:10 | Hospitalist Progress Note ---
Date of Service February 16, 2023 Assessment & Plan (1) Failure to thrive: Plan: Multiple falls at home prompted the patient to be readmitted. SNF placement is now pending. However, presence of metal permanent tracheostomy and her morbid obesity are limiting factors with placement. Appreciate case management assistance (2) CKD (chronic kidney disease): Plan: Stable . Monitor intake and output. 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 Jardiance discontinued on January 25, due to hypoglycemia. Glucose remains well controlled. Sliding scale insulin coverage as needed. ADA diet (7) Chronic diastolic congestive heart failure: Plan: Stable. Continue current medical management. Monitor intake and output (8) Chronic respiratory failure: Plan: Stable on RA. Permanent tracheostomy is unremarkable and without signs of infection or drainage. She refuses to consider transition from metal trach to plastic trach. Continue home breathing txs, trach care (9) Dyslipidemia: Plan: Continue home statin (10) Constipation: Plan: Now on Miralax and Colace/senna . (11) Left knee pain: Plan: She states the left knee pain started when she fell at home. X-ray is negative for fracture. Continue symptomatic care and physical therapy. (12) Physical deconditioning: Plan: Working with PT Plan Anticipate eventual discharge to SNF facility when arrangements are finalized Vs home if lift chair delivered, caregivers arranged, and home modifications completed Admission and Anticipated Discharge Date Admission Date: January 24, 2023 Subjective Pt has no complaints. Physical Exam Constitutional: WD/WN, vitals as above Respiratory: normal respiratory effort, lungs clear to auscultation Cardiovascular: Rate/Rhythm: regular rate and regular rhythm Extremities: + edema (trace ankle edema bilat) Psychiatric: A+Ox3, euthymic affect Results & Data Results & Data Vital Signs (Past 12 Hours) Vital Signs Temp Pulse Resp BP Pulse Ox O2 Del Method 02/16/23 15:58 72 18 96 Room Air 02/16/23 15:04 36.8 C 68 16 129/72 97 Room Air 02/16/23 11:36 68 18 96 Room Air 02/16/23 09:30 63 129/59 L 02/16/23 08:17 36.6 C 63 18 134/72 96 Room Air 02/16/23 08:10 68 18 98 Room Air 02/16/23 07:35 Room Air PG Care Time/CCT Total # of Minutes Spent Total Time Spent with Patient: Total time spent is greater than 50% in coordination of care (as documented) at patient's floor/unit and/or counseling patient: Coding Level of Care Code 36469 SUB INP/OBS CARE 12/15MIN Diagnoses Failure to thrive CKD (chronic kidney disease) N18.9 Adjustment disorder with depressed mood F43.21 Hypothyroidism (acquired) E03.9 GERD (gastroesophageal reflux disease) K21.9 Insulin-requiring or dependent type II diabetes mellitus E11.9; Z79.4 Chronic diastolic congestive heart failure I50.32 Chronic respiratory failure J96.10 Respiratory failure complication: unspecified whether with hypoxia or hypercapnia Dyslipidemia E78.5 Constipation K59.00 Left knee pain M25.562 Physical deconditioning R53.81 (8) Chronic respiratory failure Respiratory failure complication: unspecified whether with hypoxia or hypercapnia Qualified Code(s): J96.10 - Chronic respiratory failure, unspecified whether with hypoxia or hypercapnia
[2023-02-16] MEDS: ATORVASTATIN 40 MG TAB PO SCH (22:18)
[2023-02-16] MEDS: MELATONIN 3 MG TAB PO SCH (22:20)
[2023-02-17] MEDS: TORSEMIDE 10 MG TAB PO SCH ×2 (06:06→13:41)
[2023-02-17] MEDS: PANTOprazole 40 MG TAB PO SCH (06:06)
[2023-02-17] MEDS: LEVOTHYROXINE SODIUM 75 MCG TABLET PO SCH (06:06)
[2023-02-17] MEDS: Ipratropium HFA Inhaler (Combivent Respimat P&T Subs) INH SCH ×4 (07:20→20:00)
[2023-02-17] MEDS: Albuterol HFA 8 GM Inhaler (Combivent Respimat P&T Subs) INH SCH ×4 (07:21→19:59)
[2023-02-17] MEDS: POLYETHYLENE (MIRALAX) 17 GM PACK PO SCH (09:47)
[2023-02-17] MEDS: DOCUSATE SODIUM/SENNA 50/8.6MG TAB PO SCH (09:47)
[2023-02-17] MEDS: ENOXAPARIN INJ 40 MG/0.4 ML SYR SQ SCH ×2 (09:48→21:21)
[2023-02-17] MEDS: ASPIRIN 81 MG ECTAB PO SCH (09:49)
[2023-02-17] MEDS: buPROPion SR 100 MG TABCR PO SCH ×2 (09:49→21:20)
[2023-02-17] MEDS: DICLOFENAC SOD 1% GEL 100 GM TUBE EXT SCH ×4 (09:52→21:17)
[2023-02-17] MEDS: METOPROLOL TARTRATE 25 MG TAB PO SCH ×2 (09:53→21:18)
[2023-02-17] MEDS: MAGNESIUM OXIDE 400 MG TAB PO SCH (09:53)
[2023-02-17] MEDS: FOLIC ACID 1 MG TAB PO SCH (09:53)
[2023-02-17] MEDS: ISOSORBIDE MONO EXTENDED REL 30 MG TABCR PO SCH (09:53)
[2023-02-17] MEDS: SPIRONOLACTONE 25 MG TAB PO SCH (09:54)
[2023-02-17] MEDS: TOPIRAMATE 100 MG TAB PO SCH (09:54)
[2023-02-17] MEDS: POTASSIUM CHLORIDE CRTAB 20 MEQ TABCR PO SCH ×2 (09:54→21:19)
[2023-02-17] MEDS: SERTRALINE HCL 50 MG TABLET PO SCH (09:54)
[2023-02-17] MEDS: INSULIN, Rapid-Acting PUMP SCH ×4 (09:57→21:23)
--- NOTE | 2023-02-17 15:32 | Hospitalist Progress Note ---
Date of Service February 17, 2023 Assessment & Plan (1) Failure to thrive: Plan: Multiple falls at home prompted the patient to be readmitted. SNF placement is now pending. However, presence of metal permanent tracheostomy and her morbid obesity are limiting factors with placement. Appreciate case management assistance (2) CKD (chronic kidney disease): Plan: Stable . Monitor intake and output. 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 Jardiance discontinued on January 25, due to hypoglycemia. Glucose remains well controlled. Sliding scale insulin coverage as needed. ADA diet (7) Chronic diastolic congestive heart failure: Plan: Stable. Continue current medical management. Monitor intake and output continue torsemide, aldactone, BP control (8) Chronic respiratory failure: Plan: Stable on RA. Permanent tracheostomy is unremarkable and without signs of infection or drainage. She refuses to consider transition from metal trach to plastic trach. Continue home breathing txs, trach care With COPD continue azithro MWF (9) Dyslipidemia: Plan: Continue home statin (10) Constipation: Plan: Now on Miralax and Colace/senna . no acute issues (11) Left knee pain: Plan: She states the left knee pain started when she fell at home. X-ray is negative for fracture. Continue symptomatic care and physical therapy. Now resolved (12) Physical deconditioning: Plan: Working with PT (13) Anemia: Plan: mild, normocytic anemia check iron studies, B12, folate is on folic acid supplement Plan Anticipate eventual discharge to SNF facility when arrangements are finalized Vs home if lift chair delivered, caregivers arranged, and home modifications completed Admission and Anticipated Discharge Date Admission Date: January 24, 2023 Subjective No concerns moving bowels, eating, no SOB Physical Exam Constitutional: WD/WN, vitals as above Respiratory: normal respiratory effort, lungs clear to auscultation Cardiovascular: Rate/Rhythm: regular rate and regular rhythm Extremities: + edema (trace ankle edema bilat) Psychiatric: A+Ox3, euthymic affect Results & Data Results & Data Vital Signs (Past 12 Hours) Vital Signs Temp Pulse Resp BP Pulse Ox O2 Del Method 02/17/23 08:10 Room Air 02/17/23 11:20 68 18 96 Room Air 02/17/23 07:21 63 18 95 Room Air 02/17/23 07:14 36.4 C L 63 18 115/68 95 Room Air PG Care Time/CCT Total # of Minutes Spent Total Time Spent with Patient: Total time spent is greater than 50% in coordination of care (as documented) at patient's floor/unit and/or counseling patient: Coding Level of Care Code 15919 SUB INP/OBS CARE 2/35MIN Diagnoses Failure to thrive CKD (chronic kidney disease) N18.9 Adjustment disorder with depressed mood F43.21 Hypothyroidism (acquired) E03.9 GERD (gastroesophageal reflux disease) K21.9 Insulin-requiring or dependent type II diabetes mellitus E11.9; Z79.4 Chronic diastolic congestive heart failure I50.32 Chronic respiratory failure J96.10 Respiratory failure complication: unspecified whether with hypoxia or hypercapnia Dyslipidemia E78.5 Constipation K59.00 Left knee pain M25.562 Physical deconditioning R53.81 Anemia D64.9 (8) Chronic respiratory failure Respiratory failure complication: unspecified whether with hypoxia or hypercapnia Qualified Code(s): J96.10 - Chronic respiratory failure, unspecified whether with hypoxia or hypercapnia
[2023-02-17] MEDS: MELATONIN 3 MG TAB PO SCH (21:20)
[2023-02-17] MEDS: ATORVASTATIN 40 MG TAB PO SCH (21:21)
[2023-02-18] MEDS: LEVOTHYROXINE SODIUM 75 MCG TABLET PO SCH (05:50)
[2023-02-18] MEDS: PANTOprazole 40 MG TAB PO SCH (05:50)
[2023-02-18] MEDS: TORSEMIDE 10 MG TAB PO SCH ×2 (05:57→13:51)
[2023-02-18] MEDS: Albuterol HFA 8 GM Inhaler (Combivent Respimat P&T Subs) INH SCH ×4 (07:30→19:45)
[2023-02-18] MEDS: Ipratropium HFA Inhaler (Combivent Respimat P&T Subs) INH SCH ×4 (07:30→19:45)
[2023-02-18 07:44] LABS: Basophils # (auto) 0.04 K/uL (0-0.2); Basophils % (auto) 0.5 %; Eosinophils # (auto) 0.25 K/uL (0-0.50); Eosinophils % (auto) 3.2 %; Hematocrit (blood only) 37.8 % (37.0-47.0); Hemoglobin 11.4 g/dl (12.0-16.0); Immature Granulocytes # (auto) 0.06 K/uL (0.01-0.20); Immature Granulocytes % (auto) 0.8 %; Lymphocytes # (auto) 1.72 K/uL (1.2-3.4); Lymphocytes % (auto) 22.2 %; Mean Corpuscular Hemoglobin 27.1 pg (25.0-34.0); Mean Corpuscular Hgb Conc 30.2 g/dL (32.0-36.0); Mean Corpuscular Volume 89.8 fL (80.0-100.0); Monocytes # (auto) 0.64 K/uL (0.11-0.59); Monocytes % (auto) 8.3 %; Neutrophils # (auto) 5.04 K/uL (1.40-6.50); Platelet Count 248 K/uL (130-400); RDW Coefficient of Variation 15.3 % (11.5-14.5); RDW Standard Deviation 50.4 fL (36.4-46.3); Red Blood Count 4.21 M/uL (4.20-5.40); White Blood Count 7.75 K/ul (4.8-10.8)
[2023-02-18 07:56] LABS: Creatinine Clr Calc Pharmacy 53.7 ml/min; Est GFR (African American) 41.6 ml/min; Est GFR (Non-African American) 35.9 ml/min; Magnesium 2.2 mg/dl (1.7-2.4); Potassium 4.4 mmol/L (3.5-5.1)
[2023-02-18] MEDS: DOCUSATE SODIUM/SENNA 50/8.6MG TAB PO SCH (08:02)
[2023-02-18] MEDS: POLYETHYLENE (MIRALAX) 17 GM PACK PO SCH (08:02)
[2023-02-18] MEDS: ISOSORBIDE MONO EXTENDED REL 30 MG TABCR PO SCH (08:04)
[2023-02-18] MEDS: FOLIC ACID 1 MG TAB PO SCH (08:04)
[2023-02-18] MEDS: ASPIRIN 81 MG ECTAB PO SCH (08:04)
[2023-02-18] MEDS: buPROPion SR 100 MG TABCR PO SCH ×2 (08:04→21:41)
[2023-02-18] MEDS: AZITHROMYCIN 250 MG TAB PO SCH (08:04)
[2023-02-18] MEDS: METOPROLOL TARTRATE 25 MG TAB PO SCH ×2 (08:05→21:43)
[2023-02-18] MEDS: ENOXAPARIN INJ 40 MG/0.4 ML SYR SQ SCH ×2 (08:05→21:43)
[2023-02-18] MEDS: MAGNESIUM OXIDE 400 MG TAB PO SCH (08:05)
[2023-02-18] MEDS: DICLOFENAC SOD 1% GEL 100 GM TUBE EXT SCH ×4 (08:06→21:40)
[2023-02-18] MEDS: SERTRALINE HCL 50 MG TABLET PO SCH (08:06)
[2023-02-18] MEDS: SPIRONOLACTONE 25 MG TAB PO SCH (08:06)
[2023-02-18] MEDS: POTASSIUM CHLORIDE CRTAB 20 MEQ TABCR PO SCH ×2 (08:06→21:43)
[2023-02-18] MEDS: TOPIRAMATE 100 MG TAB PO SCH (08:06)
[2023-02-18 08:14] LABS: Ferritin 47.2 ng/ml (8-388)
[2023-02-18 08:25] LABS: Vitamin B12 595 pg/ml (180-914)
--- NOTE | 2023-02-18 08:54 | Hospitalist Progress Note ---
Date of Service February 18, 2023 Assessment & Plan (1) Failure to thrive: Plan: Multiple falls at home prompted the patient to be readmitted many days ago. SNF placement is now pending. However, presence of metal permanent tracheostomy and her morbid obesity are limiting factors with placement. Appreciate case management assistance, and several referrals are out across many skilled facilities. (2) CKD (chronic kidney disease): Plan: Stable . Monitor intake and output. Avoid nephrotoxic agents Creatinine stable today at 1.5, no further intervention at this time (3) Adjustment disorder with depressed mood: Plan: Stable on sertraline, topiramate, and Wellbutrin (4) Hypothyroidism (acquired): Plan: Stable on levothyroxine TSH in last few months normal (5) GERD (gastroesophageal reflux disease): Plan: Stable on pantoprazole (6) Insulin-requiring or dependent type II diabetes mellitus: Plan: Continue home insulin pump. Jardiance discontinued on January 25, due to hypoglycemia. Glucose remains well controlled. Sliding scale insulin coverage as needed. DM2 diet (7) Chronic diastolic congestive heart failure: Plan: Stable. Continue current medical management. Monitor intake and output continue torsemide twice daily, spironolactone, BP control (8) Chronic respiratory failure: Plan: Stable on RA. Permanent tracheostomy is unremarkable and without signs of infection or drainage. She refuses to consider transition from metal trach to plastic trach. Continue home breathing txs, trach care History of COPD Continue azithro 250 mg MWF (9) Dyslipidemia: Plan: Continue home statin (10) Constipation: Plan: Continue Miralax and Colace/senna no acute issues (11) Left knee pain: Plan: Continue home oxycodone as needed for pain. X-rays negative for fracture. Continue physical therapy (12) Physical deconditioning: Plan: Working with PT, placement pending as described above (13) Anemia: Plan: mild, normocytic anemia check iron studies, B12, folate is on folic acid supplement, continue Plan Anticipate eventual discharge to SNF facility when arrangements are finalized. vs.home if lift chair delivered, caregivers arranged, and home modifications completed Admission and Anticipated Discharge Date Admission Date: January 24, 2023 Subjective Patient without any acute events overnight. Is pending placement for failure to thrive and multiple falls. No complaints this morning from patient. Review of Systems Review of Systems: All systems reviewed & are unremarkable except as noted in Subjective Physical Exam Constitutional: WD/WN, vitals as above Respiratory: normal respiratory effort, lungs clear to auscultation Cardiovascular: Rate/Rhythm: regular rate and regular rhythm Extremities: + edema (trace ankle edema bilat) Psychiatric: A+Ox3, euthymic affect Results & Data Results & Data Vital Signs (Past 12 Hours) Vital Signs Temp Pulse Resp BP BP Pulse Ox O2 Del Method 02/18/23 08:00 36.7 C 65 16 137/58 L 94 Room Air 02/18/23 07:38 67 12 96 Room Air 02/18/23 07:37 67 14 96 Room Air 02/18/23 03:39 18 98 Trach Collar 02/17/23 23:27 96 H 124/68 96 Room Air 02/17/23 21:15 87 136/66 O2 Flow Rate FiO2 02/18/23 08:00 02/18/23 07:38 21 02/18/23 07:37 21 02/18/23 03:39 6 28 02/17/23 23:27 02/17/23 21:15 PG Care Time/CCT Total # of Minutes Spent Total Time Spent with Patient: Total time spent is greater than 50% in coordination of care (as documented) at patient's floor/unit and/or counseling patient: Coding Level of Care Code 37435 SUB INP/OBS CARE 12/15MIN Diagnoses Failure to thrive CKD (chronic kidney disease) N18.9 Adjustment disorder with depressed mood F43.21 Hypothyroidism (acquired) E03.9 GERD (gastroesophageal reflux disease) K21.9 Insulin-requiring or dependent type II diabetes mellitus E11.9; Z79.4 Chronic diastolic congestive heart failure I50.32 Chronic respiratory failure J96.10 Respiratory failure complication: unspecified whether with hypoxia or hypercapnia Dyslipidemia E78.5 Constipation K59.00 Left knee pain M25.562 Physical deconditioning R53.81 Anemia D64.9 (8) Chronic respiratory failure Respiratory failure complication: unspecified whether with hypoxia or hypercapnia Qualified Code(s): J96.10 - Chronic respiratory failure, unspecified whether with hypoxia or hypercapnia
[2023-02-18] MEDS: INSULIN, Rapid-Acting PUMP SCH ×4 (09:00→21:44)
[2023-02-18] MEDS: ATORVASTATIN 40 MG TAB PO SCH (21:41)
[2023-02-18] MEDS: MELATONIN 3 MG TAB PO SCH (21:42)
[2023-02-19] MEDS: TORSEMIDE 10 MG TAB PO SCH ×2 (06:02→13:52)
[2023-02-19] MEDS: PANTOprazole 40 MG TAB PO SCH (06:02)
[2023-02-19] MEDS: LEVOTHYROXINE SODIUM 75 MCG TABLET PO SCH (06:03)
--- NOTE | 2023-02-19 07:27 | Hospitalist Progress Note ---
Date of Service February 19, 2023 Assessment & Plan (1) Failure to thrive: Plan: Multiple falls at home prompted the patient to be readmitted many days ago. SNF placement is now pending. However, presence of metal permanent tracheostomy and her morbid obesity are limiting factors with placement. Appreciate case management assistance, and several referrals are out across many skilled facilities. (2) CKD (chronic kidney disease): Plan: Stable . Monitor intake and output. Avoid nephrotoxic agents Creatinine stable 1.5 on 02/18, no interventions at this time (3) Adjustment disorder with depressed mood: Plan: Stable on sertraline, topiramate, and Wellbutrin (4) Hypothyroidism (acquired): Plan: Stable on levothyroxine TSH in last few months normal (5) GERD (gastroesophageal reflux disease): Plan: Stable on pantoprazole (6) Insulin-requiring or dependent type II diabetes mellitus: Plan: Continue home insulin pump. Jardiance discontinued on January 25, due to hypoglycemia. Glucose remains well controlled. Sliding scale insulin coverage as needed. DM2 diet (7) Chronic diastolic congestive heart failure: Plan: Stable. Continue current medical management. Monitor intake and output continue torsemide twice daily, spironolactone, BP controlled with this regimen (8) Chronic respiratory failure: Plan: Stable on RA. Permanent tracheostomy is unremarkable and without signs of infection or drainage. She refuses to consider transition from metal trach to plastic trach. Continue home breathing txs, trach care History of COPD Continue azithro 250 mg MWF (9) Dyslipidemia: Plan: Continue home statin (10) Constipation: Plan: Continue Miralax and Colace/senna no acute issues (11) Left knee pain: Plan: Continue home oxycodone as needed for pain. X-rays negative for fracture. Continue physical therapy (12) Physical deconditioning: Plan: Working with PT, placement pending as described above (13) Anemia: Plan: mild, normocytic anemia continue folic acid supplement Plan Anticipate eventual discharge to SNF facility when arrangements are finalized. vs.home if lift chair delivered, caregivers arranged, and home modifications completed Admission and Anticipated Discharge Date Admission Date: January 24, 2023 Subjective no acute events overnight. pain well controlled with prn oxycodone. no SOB, chest pain Review of Systems Review of Systems: All systems reviewed & are unremarkable except as noted in Subjective Physical Exam Constitutional: WD/WN, vitals as above Neck: metal trach in place Respiratory: normal respiratory effort, lungs clear to auscultation Cardiovascular: Rate/Rhythm: regular rate and regular rhythm Extremities: + edema (trace ankle edema bilat) Psychiatric: A+Ox3, euthymic affect Results & Data Results & Data Vital Signs (Past 12 Hours) Vital Signs Temp Pulse Resp BP Pulse Ox O2 Del Method O2 Flow Rate 02/18/23 23:05 74 18 97 Trach Collar 6 02/19/23 02:47 36.6 C 65 18 133/74 96 Room Air 02/18/23 22:13 Room Air 02/18/23 19:46 88 22 95 Room Air PG Care Time/CCT Total # of Minutes Spent Total Time Spent with Patient: Total time spent is greater than 50% in coordination of care (as documented) at patient's floor/unit and/or counseling patient: Coding Level of Care Code 58138 SUB INP/OBS CARE 12/15MIN Diagnoses Failure to thrive CKD (chronic kidney disease) N18.9 Adjustment disorder with depressed mood F43.21 Hypothyroidism (acquired) E03.9 GERD (gastroesophageal reflux disease) K21.9 Insulin-requiring or dependent type II diabetes mellitus E11.9; Z79.4 Chronic diastolic congestive heart failure I50.32 Chronic respiratory failure J96.10 Respiratory failure complication: unspecified whether with hypoxia or hypercapnia Dyslipidemia E78.5 Constipation K59.00 Left knee pain M25.562 Physical deconditioning R53.81 Anemia D64.9 (8) Chronic respiratory failure Respiratory failure complication: unspecified whether with hypoxia or hype rcapnia Qualified Code(s): J96.10 - Chronic respiratory failure, unspecified whether with hypoxia or hypercapnia
[2023-02-19] MEDS: Ipratropium HFA Inhaler (Combivent Respimat P&T Subs) INH SCH ×4 (07:49→19:15)
[2023-02-19] MEDS: Albuterol HFA 8 GM Inhaler (Combivent Respimat P&T Subs) INH SCH ×4 (07:50→19:16)
[2023-02-19] MEDS: POLYETHYLENE (MIRALAX) 17 GM PACK PO SCH (09:03)
[2023-02-19] MEDS: DOCUSATE SODIUM/SENNA 50/8.6MG TAB PO SCH (09:03)
[2023-02-19] MEDS: ENOXAPARIN INJ 40 MG/0.4 ML SYR SQ SCH ×2 (09:04→20:48)
[2023-02-19] MEDS: buPROPion SR 100 MG TABCR PO SCH ×2 (09:04→20:47)
[2023-02-19] MEDS: ASPIRIN 81 MG ECTAB PO SCH (09:04)
[2023-02-19] MEDS: SPIRONOLACTONE 25 MG TAB PO SCH (09:05)
[2023-02-19] MEDS: MAGNESIUM OXIDE 400 MG TAB PO SCH (09:05)
[2023-02-19] MEDS: ISOSORBIDE MONO EXTENDED REL 30 MG TABCR PO SCH (09:05)
[2023-02-19] MEDS: FOLIC ACID 1 MG TAB PO SCH (09:05)
[2023-02-19] MEDS: TOPIRAMATE 100 MG TAB PO SCH (09:05)
[2023-02-19] MEDS: POTASSIUM CHLORIDE CRTAB 20 MEQ TABCR PO SCH ×2 (09:06→20:45)
[2023-02-19] MEDS: METOPROLOL TARTRATE 25 MG TAB PO SCH ×2 (09:06→20:47)
[2023-02-19] MEDS: DICLOFENAC SOD 1% GEL 100 GM TUBE EXT SCH ×4 (09:06→20:48)
[2023-02-19] MEDS: INSULIN, Rapid-Acting PUMP SCH ×4 (09:07→20:51)
[2023-02-19] MEDS: SERTRALINE HCL 50 MG TABLET PO SCH (10:08)
[2023-02-19] MEDS: ATORVASTATIN 40 MG TAB PO SCH (20:46)
[2023-02-19] MEDS: MELATONIN 3 MG TAB PO SCH (20:46)
[2023-02-19] MEDS: oxyCODONE HCL IR 5 MG TAB (IMMEDIATE RELEASE) PO PRN (22:35)
[2023-02-20] MEDS: LEVOTHYROXINE SODIUM 75 MCG TABLET PO SCH (06:12)
[2023-02-20] MEDS: TORSEMIDE 10 MG TAB PO SCH ×2 (06:13→13:56)
[2023-02-20] MEDS: PANTOprazole 40 MG TAB PO SCH (06:13)
[2023-02-20] MEDS: Albuterol HFA 8 GM Inhaler (Combivent Respimat P&T Subs) INH SCH ×4 (07:29→20:28)
[2023-02-20] MEDS: Ipratropium HFA Inhaler (Combivent Respimat P&T Subs) INH SCH ×4 (07:29→20:27)
[2023-02-20] MEDS: POLYETHYLENE (MIRALAX) 17 GM PACK PO SCH (08:56)
[2023-02-20] MEDS: INSULIN, Rapid-Acting PUMP SCH ×4 (08:56→21:41)
[2023-02-20] MEDS: DOCUSATE SODIUM/SENNA 50/8.6MG TAB PO SCH (08:56)
[2023-02-20] MEDS: DICLOFENAC SOD 1% GEL 100 GM TUBE EXT SCH ×4 (08:57→21:14)
[2023-02-20] MEDS: METOPROLOL TARTRATE 25 MG TAB PO SCH ×2 (08:57→21:13)
[2023-02-20] MEDS: ENOXAPARIN INJ 40 MG/0.4 ML SYR SQ SCH ×2 (08:57→21:14)
[2023-02-20] MEDS: buPROPion SR 100 MG TABCR PO SCH ×2 (08:58→21:12)
[2023-02-20] MEDS: TOPIRAMATE 100 MG TAB PO SCH (08:58)
[2023-02-20] MEDS: POTASSIUM CHLORIDE CRTAB 20 MEQ TABCR PO SCH ×2 (08:58→21:14)
[2023-02-20] MEDS: ASPIRIN 81 MG ECTAB PO SCH (08:58)
[2023-02-20] MEDS: MAGNESIUM OXIDE 400 MG TAB PO SCH (08:58)
[2023-02-20] MEDS: SERTRALINE HCL 50 MG TABLET PO SCH (08:58)
[2023-02-20] MEDS: FOLIC ACID 1 MG TAB PO SCH (08:59)
[2023-02-20] MEDS: SPIRONOLACTONE 25 MG TAB PO SCH (08:59)
[2023-02-20] MEDS: ISOSORBIDE MONO EXTENDED REL 30 MG TABCR PO SCH (08:59)
--- NOTE | 2023-02-20 09:29 | Hospitalist Progress Note ---
Date of Service February 20, 2023 Assessment & Plan (1) Failure to thrive: Plan: Multiple falls at home prompted the patient to be readmitted on 01/24. SNF placement recommended as patient has had several falls at home without ability to get up without significant assistance. However, presence of metal permanent tracheostomy and her morbid obesity are limiting factors with placement. Appreciate case management assistance, and several referrals are out across many skilled facilities. (2) CKD (chronic kidney disease): Plan: Stable . Monitor intake and output. Avoid nephrotoxic agents Creatinine stable 1.5 on 02/18, no interventions at this time (3) GERD (gastroesophageal reflux disease): Plan: Stable on pantoprazole (4) Insulin-requiring or dependent type II diabetes mellitus: Plan: Continue home insulin pump. Jardiance discontinued on January 25, due to hypoglycemia. Glucose remains well controlled. Sliding scale insulin coverage as needed. DM2 diet (5) Chronic diastolic congestive heart failure: Plan: Stable. Continue current medical management. Monitor intake and output Continue torsemide twice daily, spironolactone, BP controlled with this regimen (6) Chronic respiratory failure: Plan: Stable on RA. Permanent tracheostomy is unremarkable and without signs of infection or drainage. She declines consideration of transition from metal trach to plastic trach. Continue home breathing txs, trach care History of COPD Continue azithro 250 mg MWF (7) Dyslipidemia: Plan: Continue home statin (8) Constipation: Plan: Continue Miralax and Colace/senna no acute issues (9) Left knee pain: Plan: Continue home oxycodone as needed for pain, used one dose yesterday for knee pains. X-rays negative for fracture. Continue physical therapy (10) Physical deconditioning: Plan: Working with PT, placement pending as described above (11) Anemia: Plan: mild, normocytic anemia continue folic acid supplement Plan Anticipate eventual discharge to SNF facility when arrangements are finalized; medically stable for discharge when bed available. VS.home if lift chair delivered, caregivers arranged, and home modifications completed Admission and Anticipated Discharge Date Admission Date: January 24, 2023 Subjective No overnight events, Viviana has no complaints today. Physical Exam Constitutional: WD/WN, vitals as above Respiratory: normal respiratory effort, lungs clear to auscultation trach in place, no concerns Psychiatric: A+Ox3, euthymic affect Results & Data Results & Data Vital Signs (Past 12 Hours) Vital Signs Temp Pulse Pulse Resp BP BP Pulse Ox 02/20/23 08:55 76 108/61 02/20/23 07:33 64 18 95 02/20/23 07:20 02/20/23 07:03 36.5 C 65 18 128/68 95 02/19/23 23:07 37 C 79 18 120/70 97 02/19/23 22:55 74 18 97 O2 Del Method O2 Flow Rate FiO2 02/20/23 08:55 02/20/23 07:33 Room Air 02/20/23 07:20 Room Air 02/20/23 07:03 Room Air 02/19/23 23:07 Room Air 02/19/23 22:55 Trach Collar 6 28 PG Care Time/CCT Total # of Minutes Spent Total Time Spent with Patient: Total time spent is greater than 50% in coordination of care (as documented) at patient's floor/unit and/or counseling patient: Coding Level of Care Code 15947 SUB INP/OBS CARE 12/15MIN Diagnoses Failure to thrive CKD (chronic kidney disease) N18.9 GERD (gastroesophageal reflux disease) K21.9 Insulin-requiring or dependent type II diabetes mellitus E11.9; Z79.4 Chronic diastolic congestive heart failure I50.32 Chronic respiratory failure J96.10 Respiratory failure complication: unspecified whether with hypoxia or hypercapnia Dyslipidemia E78.5 Constipation K59.00 Left knee pain M25.562 Physical deconditioning R53.81 Anemia D64.9 (6) Chronic respiratory failure Respiratory failure complication: unspecified whether with hypoxia or hypercapnia Qualified Code(s): J96.10 - Chronic respiratory failure, unspecified whether with hypoxia or hypercapnia
[2023-02-20] MEDS: ATORVASTATIN 40 MG TAB PO SCH (21:12)
[2023-02-20] MEDS: MELATONIN 3 MG TAB PO SCH (21:13)
[2023-02-21] MEDS: PANTOprazole 40 MG TAB PO SCH (06:29)
[2023-02-21] MEDS: TORSEMIDE 10 MG TAB PO SCH ×2 (06:29→16:23)
[2023-02-21] MEDS: LEVOTHYROXINE SODIUM 75 MCG TABLET PO SCH (06:30)
--- NOTE | 2023-02-21 07:13 | Hospitalist Progress Note ---
Date of Service February 21, 2023 Assessment & Plan (1) Failure to thrive: Plan: Multiple falls at home prompted the patient to be readmitted on 01/24. SNF placement recommended as patient has had several falls at home without ability to get up without significant assistance. However, presence of metal permanent tracheostomy and her morbid obesity are limiting factors with placement. Appreciate case management assistance, and several referrals are out across many skilled facilities. (2) Diarrhea: Plan: Reports of diarrhea for the last 2 days, does also have a history of constipation on MiraLAX and Senokot, will hold this for now Patient has a history of C. difficile infections in the past, will order testing for this (3) CKD (chronic kidney disease): Plan: Stable. Monitor intake and output. Avoid nephrotoxic agents Creatinine stable 1.5 on 02/18, no interventions at this time (4) GERD (gastroesophageal reflux disease): Plan: Stable on pantoprazole (5) Insulin-requiring or dependent type II diabetes mellitus: Plan: Continue home insulin pump. Jardiance discontinued on January 25, due to hypoglycemia. Glucose remains well controlled. Sliding scale insulin coverage as needed. DM2 diet (6) Chronic diastolic congestive heart failure: Plan: Stable. Continue current medical management. Monitor intake and output Continue torsemide twice daily, spironolactone, BP controlled with this regimen (7) Chronic respiratory failure: Plan: Stable on RA. Permanent tracheostomy is unremarkable and without signs of infection or drainage. She declines consideration of transition from metal trach to plastic trach. Continue home breathing txs, trach care History of COPD Continue azithro 250 mg MWF (8) Dyslipidemia: Plan: Continue home statin (9) Left knee pain: Plan: Continue home oxycodone as needed for pain. X-rays negative for fracture. Continue physical therapy (10) Physical deconditioning: Plan: Working with PT, placement pending as described above (11) Anemia: Plan: mild, normocytic anemia continue folic acid supplement Plan Anticipate eventual discharge to SNF facility when arrangements are finalized; m edically stable for discharge when bed available. VS.home if lift chair delivered, caregivers arranged, and home modifications completed Admission and Anticipated Discharge Date Admission Date: January 24, 2023 Subjective Patient without any signs of hemodynamic stability or vital signs that she is overnight. Does endorse some diarrhea today and yesterday, does have a history of C. difficile infections. No abdominal pain, no fevers. Review of Systems Review of Systems: All systems reviewed & are unremarkable except as noted in Subjective Physical Exam Constitutional: WD/WN, vitals as above Respiratory: normal respiratory effort, lungs clear to auscultation trach in place, no concerns Cardiovascular: RRR, no murmur, no edema Gastrointestinal (Abdomen): normal bowel sounds, soft, nontender, no hepa tosplenomegaly Psychiatric: A+Ox3, euthymic affect Results & Data Results & Data Vital Signs (Past 12 Hours) Vital Signs Temp Pulse Resp BP Pulse Ox O2 Del Method 02/20/23 20:50 Room Air 02/20/23 21:09 37.0 C 92 H 18 156/73 H 93 Room Air 02/20/23 20:28 76 18 94 Room Air PG Care Time/CCT Total # of Minutes Spent Total Time Spent with Patient: Total time spent is greater than 50% in coordination of care (as documented) at patient's floor/unit and/or counseling patient: Coding Level of Care Code 28737 SUB INP/OBS CARE 12/15MIN Diagnoses Failure to thrive Diarrhea R19.7 CKD (chronic kidney disease) N18.9 GERD (gastroesophageal reflux disease) K21.9 Insulin-requiring or dependent type II diabetes mellitus E11.9; Z79.4 Chronic diastolic congestive heart failure I50.32 Chronic respiratory failure J96.10 Respiratory failure complication: unspecified whether with hypoxia or hypercapnia Dyslipidemia E78.5 Left knee pain M25.562 Physical deconditioning R53.81 Anemia D64.9 (7) Chronic respiratory failure Respiratory failure complication: unspecified whether with hypoxia or hypercapnia Qualified Code(s): J96.10 - Chronic respiratory failure, unspecified whether with hypoxia or hypercapnia
[2023-02-21] MEDS: Ipratropium HFA Inhaler (Combivent Respimat P&T Subs) INH SCH ×4 (07:45→19:24)
[2023-02-21] MEDS: Albuterol HFA 8 GM Inhaler (Combivent Respimat P&T Subs) INH SCH ×4 (07:45→19:24)
[2023-02-21] MEDS: ASPIRIN 81 MG ECTAB PO SCH (07:56)
[2023-02-21] MEDS: POLYETHYLENE (MIRALAX) 17 GM PACK PO SCH (07:56)
[2023-02-21] MEDS: DOCUSATE SODIUM/SENNA 50/8.6MG TAB PO SCH (07:56)
[2023-02-21] MEDS: AZITHROMYCIN 250 MG TAB PO SCH (07:57)
[2023-02-21] MEDS: DICLOFENAC SOD 1% GEL 100 GM TUBE EXT SCH ×4 (07:58→20:54)
[2023-02-21] MEDS: buPROPion SR 100 MG TABCR PO SCH ×2 (07:58→20:55)
[2023-02-21] MEDS: ENOXAPARIN INJ 40 MG/0.4 ML SYR SQ SCH ×2 (07:58→20:54)
[2023-02-21] MEDS: ISOSORBIDE MONO EXTENDED REL 30 MG TABCR PO SCH (07:59)
[2023-02-21] MEDS: FOLIC ACID 1 MG TAB PO SCH (07:59)
[2023-02-21] MEDS: MAGNESIUM OXIDE 400 MG TAB PO SCH (08:00)
[2023-02-21] MEDS: METOPROLOL TARTRATE 25 MG TAB PO SCH ×2 (08:00→20:55)
[2023-02-21] MEDS: POTASSIUM CHLORIDE CRTAB 20 MEQ TABCR PO SCH ×2 (08:01→20:54)
[2023-02-21] MEDS: SERTRALINE HCL 50 MG TABLET PO SCH (08:02)
[2023-02-21] MEDS: TOPIRAMATE 100 MG TAB PO SCH (08:02)
[2023-02-21] MEDS: SPIRONOLACTONE 25 MG TAB PO SCH (08:02)
[2023-02-21] MEDS: INSULIN, Rapid-Acting PUMP SCH ×4 (09:24→20:58)
[2023-02-21] MEDS ORDERED: POLYETHYLENE (MIRALAX) 17 GM PACK PO PRN (14:19)
[2023-02-21] MEDS: MELATONIN 3 MG TAB PO SCH (20:54)
[2023-02-21] MEDS: ATORVASTATIN 40 MG TAB PO SCH (20:54)
[2023-02-22] MEDS: LEVOTHYROXINE SODIUM 75 MCG TABLET PO SCH (06:15)
[2023-02-22] MEDS: PANTOprazole 40 MG TAB PO SCH (06:15)
[2023-02-22] MEDS: TORSEMIDE 10 MG TAB PO SCH ×2 (06:15→13:28)
[2023-02-22] MEDS: Ipratropium HFA Inhaler (Combivent Respimat P&T Subs) INH SCH ×4 (07:03→20:01)
[2023-02-22] MEDS: Albuterol HFA 8 GM Inhaler (Combivent Respimat P&T Subs) INH SCH ×4 (07:03→20:02)
[2023-02-22] MEDS: ENOXAPARIN INJ 40 MG/0.4 ML SYR SQ SCH ×2 (07:45→21:41)
[2023-02-22] MEDS: DICLOFENAC SOD 1% GEL 100 GM TUBE EXT SCH ×4 (07:46→21:41)
--- NOTE | 2023-02-22 08:09 | Hospitalist Progress Note ---
Date of Service February 22, 2023 Assessment & Plan (1) Failure to thrive: Plan: Multiple falls at home prompted the patient to be readmitted on 01/24. SNF placement recommended as patient has had several falls at home without ability to get up without significant assistance. However, presence of metal permanent tracheostomy and her morbid obesity are limiting factors with placement. Appreciate case management assistance, and several referrals are out across many skilled facilities. Awaiting placement per insurance authorization and bed availability. (2) Diarrhea: Plan: Reports of diarrhea for the last 2 days, does also have a history of constipation on MiraLAX and Senokot, holding these Patient has a history of C. difficile infections in the past, testing on 02/21 was negative, continues Imodium as needed for diarrhea (3) CKD (chronic kidney disease): Plan: Stable. Monitor intake and output. Avoid nephrotoxic agents Creatinine stable 1.5 on 02/18, no interventions at this time (4) GERD (gastroesophageal reflux disease): Plan: Stable on pantoprazole (5) Insulin-requiring or dependent type II diabetes mellitus: Plan: Continue home insulin pump. Jardiance discontinued on January 25, due to hypoglycemia. Glucose remains well controlled. Sliding scale insulin coverage as needed. DM2 diet (6) Chronic diastolic congestive heart failure: Plan: Stable. Continue current medical management. Monitor intake and output Continue torsemide twice daily, spironolactone, BP controlled with this regimen (7) Chronic respiratory failure: Plan: Stable on RA. Permanent tracheostomy is unremarkable and without signs of infection or drainage. She declines consideration of transition from metal trach to plastic trach. Continue home breathing txs, trach care History of COPD Continue azithro 250 mg MWF (8) Dyslipidemia: Plan: Continue home statin (9) Left knee pain: Plan: Continue home oxycodone as needed for pain. X-rays negative for fracture. Continue physical therapy (10) Physical deconditioning: Plan: Working with PT, placement pending as described above (11) Anemia: Plan: mild, normocytic anemia continue folic acid supplement Plan Anticipate eventual discharge to SNF facility when arrangements are finalized; medically stable for discharge when bed available. VS.home if lift chair delivered, caregivers arranged, and home modifications completed Admission and Anticipated Discharge Date Admission Date: January 24, 2023 Subjective Patient without any acute events overnight. No complaints of pain. No trouble breathing. Still with some diarrhea. Review of Systems Review of Systems: All systems reviewed & are unremarkable except as noted in Subjective Physical Exam Constitutional: WD/WN, vitals as above Respiratory: normal respiratory effort, lungs clear to auscultation trach in place, no concerns Cardiovascular: RRR, no murmur, no edema Gastrointestinal (Abdomen): normal bowel sounds, soft, nontender, no hepatosplenomegaly Psychiatric: A+Ox3, euthymic affect Results & Data Results & Data Vital Signs (Past 12 Hours) Vital Signs Temp Pulse Pulse Resp BP Pulse Ox O2 Del Method 02/22/23 07:04 86 18 96 Room Air 02/22/23 02:29 65 18 95 Room Air 02/21/23 21:00 Room Air, Trach Collar 02/21/23 22:34 68 18 95 Trach Collar 02/21/23 20:22 37 C 88 18 121/70 95 Room Air O2 Flow Rate FiO2 02/22/23 07:04 02/22/23 02:29 02/21/23 21:00 02/21/23 22:34 6 28 02/21/23 20:22 PG Care Time/CCT Total # of Minutes Spent Total Time Spent with Patient: Total time spent is greater than 50% in coordination of care (as documented) at patient's floor/unit and/or counseling patient: Coding Level of Care Code 35529 SUB INP/OBS CARE 12/15MIN Diagnoses Failure to thrive Diarrhea R19.7 CKD (chronic kidney disease) N18.9 GERD (gastroesophageal reflux disease) K21.9 Insulin-requiring or dependent type II diabetes mellitus E11.9; Z79.4 Chronic diastolic congestive heart failure I50.32 Chronic respiratory failure J96.10 Respiratory failure complication: unspecified whether with hypoxia or hypercapnia Dyslipidemia E78.5 Left knee pain M25.562 Physical deconditioning R53.81 Anemia D64.9 (7) Chronic respiratory failure Respiratory failure complication: unspecified whether with hypoxia or hypercapnia Qualified Code(s): J96.10 - Chronic respiratory failure, unspecified whether with hypoxia or hypercapnia
[2023-02-22] MEDS: FOLIC ACID 1 MG TAB PO SCH (09:24)
[2023-02-22] MEDS: buPROPion SR 100 MG TABCR PO SCH ×2 (09:24→21:40)
[2023-02-22] MEDS: ISOSORBIDE MONO EXTENDED REL 30 MG TABCR PO SCH (09:24)
[2023-02-22] MEDS: INSULIN, Rapid-Acting PUMP SCH ×4 (09:24→21:46)
[2023-02-22] MEDS: ASPIRIN 81 MG ECTAB PO SCH (09:24)
[2023-02-22] MEDS: METOPROLOL TARTRATE 25 MG TAB PO SCH ×2 (09:25→21:40)
[2023-02-22] MEDS: POTASSIUM CHLORIDE CRTAB 20 MEQ TABCR PO SCH ×2 (09:25→21:40)
[2023-02-22] MEDS: MAGNESIUM OXIDE 400 MG TAB PO SCH (09:25)
[2023-02-22] MEDS: SERTRALINE HCL 50 MG TABLET PO SCH (09:25)
[2023-02-22] MEDS: SPIRONOLACTONE 25 MG TAB PO SCH (09:26)
[2023-02-22] MEDS: TOPIRAMATE 100 MG TAB PO SCH (09:26)
[2023-02-22] MEDS: ATORVASTATIN 40 MG TAB PO SCH (21:40)
[2023-02-22] MEDS: MELATONIN 3 MG TAB PO SCH (21:41)
[2023-02-23] MEDS: TORSEMIDE 10 MG TAB PO SCH ×2 (06:26→14:21)
[2023-02-23] MEDS: LEVOTHYROXINE SODIUM 75 MCG TABLET PO SCH (06:26)
[2023-02-23] MEDS: PANTOprazole 40 MG TAB PO SCH (06:26)
--- NOTE | 2023-02-23 07:07 | Hospitalist Progress Note ---
Date of Service February 23, 2023 Assessment & Plan (1) Failure to thrive: Plan: Multiple falls at home prompted the patient to be readmitted on 01/24. SNF placement recommended as patient has had several falls at home without ability to get up without significant assistance. However, presence of metal permanent tracheostomy and her morbid obesity are limiting factors with placement. Appreciate case management assistance, and several referrals are out across many skilled facilities. Awaiting placement per insurance authorization and bed availability versus appropriate equipment at home. (2) Diarrhea: Plan: Reports of diarrhea for the last 2 days, does also have a history of constipation on MiraLAX and Senokot, holding these Patient has a history of C. difficile infections in the past, testing on 02/21 was negative, continue Imodium as needed for diarrhea (3) CKD (chronic kidney disease): Plan: Stable. Monitor intake and output. Avoid nephrotoxic agents Creatinine stable 1.5 on 02/18, no interventions at this time (4) GERD (gastroesophageal reflux disease): Plan: Stable on pantoprazole (5) Insulin-requiring or dependent type II diabetes mellitus: Plan: Continue home insulin pump. Jardiance discontinued on January 25, due to hypoglycemia. Glucose remains well controlled. Sliding scale insulin coverage as needed. DM2 diet (6) Chronic diastolic congestive heart failure: Plan: Stable. Continue current medical management. Monitor intake and output Continue torsemide twice daily, spironolactone, BP controlled with this regimen (7) Chronic respiratory failure: Plan: Stable on RA. Permanent tracheostomy is unremarkable and without signs of infection or drainage. She declines consideration of transition from metal trach to plastic trach. Continue home breathing txs, trach care History of COPD Continue azithro 250 mg MWF (8) Dyslipidemia: Plan: Continue home statin (9) Left knee pain: Plan: Continue home oxycodone as needed for pain. X-rays negative for fracture. Continue physical therapy (10) Physical deconditioning: Plan: Working with PT, placement pending as described above (11) Anemia: Plan: mild, normocytic anemia continue folic acid supplement Plan Anticipate eventual discharge to SNF facility when arrangements are finalized; medically stable for discharge when bed available. VS.home if lift chair delivered, caregivers arranged, and home modifications completed Admission and Anticipated Discharge Date Admission Date: January 24, 2023 Subjective Patient without any acute events overnight. No pain, no shortness of breath, ongoing diarrhea did not realize she had to ask for the Imodium. Review of Systems Review of Systems: All systems reviewed & are unremarkable except as noted in Subjective Physical Exam Constitutional: WD/WN, vitals as above Respiratory: normal respiratory effort, lungs clear to auscultation trach in place, no concerns Cardiovascular: RRR, no murmur, no edema Gastrointestinal (Abdomen): normal bowel sounds, soft, nontender, no hepatosplenomegaly Psychiatric: A+Ox3, euthymic affect Results & Data Results & Data Vital Signs (Past 12 Hours) Vital Signs Temp Pulse Pulse Resp BP Pulse Ox O2 Del Method 02/22/23 23:38 57 L 97 H 22 97 Trach Collar 02/22/23 21:59 36.9 C 81 18 124/69 93 Room Air 02/22/23 20:02 73 24 94 Room Air O2 Flow Rate FiO2 02/22/23 23:38 6 28 02/22/23 21:59 02/22/23 20:02 21 PG Care Time/CCT Total # of Minutes Spent Total Time Spent with Patient: Total time spent is greater than 50% in coordination of care (as documented) at patient's floor/unit and/or counseling patient: Coding Level of Care Code 30665 SUB INP/OBS CARE 12/15MIN Diagnoses Failure to thrive Diarrhea R19.7 CKD (chronic kidney disease) N18.9 GERD (gastroesophageal reflux disease) K21.9 Insulin-requiring or dependent type II diabetes mellitus E11.9; Z79.4 Chronic diastolic congestive heart failure I50.32 Chronic respiratory failure J96.10 Respiratory failure complication: unspecified whether with hypoxia or hypercapnia Dyslipidemia E78.5 Left knee pain M25.562 Physical deconditioning R53.81 Anemia D64.9 (7) Chronic respiratory failure Respiratory failure complication: unspecified whether with hypoxia or hypercapnia Qualified Code(s): J96.10 - Chronic respiratory failure, unspecified whether with hypoxia or hypercapnia
[2023-02-23] MEDS: Ipratropium HFA Inhaler (Combivent Respimat P&T Subs) INH SCH ×4 (07:22→19:16)
[2023-02-23] MEDS: Albuterol HFA 8 GM Inhaler (Combivent Respimat P&T Subs) INH SCH ×4 (07:22→19:16)
[2023-02-23] MEDS: DICLOFENAC SOD 1% GEL 100 GM TUBE EXT SCH ×4 (07:56→21:23)
[2023-02-23] MEDS: METOPROLOL TARTRATE 25 MG TAB PO SCH ×2 (07:56→21:16)
[2023-02-23] MEDS: ENOXAPARIN INJ 40 MG/0.4 ML SYR SQ SCH ×2 (07:56→21:15)
[2023-02-23] MEDS: MAGNESIUM OXIDE 400 MG TAB PO SCH (07:57)
[2023-02-23] MEDS: FOLIC ACID 1 MG TAB PO SCH (07:57)
[2023-02-23] MEDS: ASPIRIN 81 MG ECTAB PO SCH (07:57)
[2023-02-23] MEDS: ISOSORBIDE MONO EXTENDED REL 30 MG TABCR PO SCH (07:57)
[2023-02-23] MEDS: AZITHROMYCIN 250 MG TAB PO SCH (07:57)
[2023-02-23] MEDS: SERTRALINE HCL 50 MG TABLET PO SCH (07:57)
[2023-02-23] MEDS: TOPIRAMATE 100 MG TAB PO SCH (07:57)
[2023-02-23] MEDS: buPROPion SR 100 MG TABCR PO SCH ×2 (07:57→21:16)
[2023-02-23] MEDS: POTASSIUM CHLORIDE CRTAB 20 MEQ TABCR PO SCH ×2 (07:57→21:15)
[2023-02-23] MEDS: SPIRONOLACTONE 25 MG TAB PO SCH (07:57)
[2023-02-23] MEDS: INSULIN, Rapid-Acting PUMP SCH ×4 (09:02→21:24)
[2023-02-23] MEDS: LOPERAMIDE HCL 2 MG CAP PO PRN (12:20)
[2023-02-23] MEDS ORDERED: DEXTROSE 50% 50 ML SYRINGE IV PRN (15:00)
[2023-02-23] MEDS ORDERED: GLUCAGON FOR INJ 1 MG VIAL IM PRN (15:00)
[2023-02-23] MEDS ORDERED: GLUCOSE 40% GEL 15 GM TUBE PO PRN (15:00)
[2023-02-23] MEDS ORDERED: CARBOHYDRATES FOR HYPOGLYCEMIA PO PRN (15:00)
[2023-02-23] MEDS ORDERED: GLUCOSE 10 TAB/TUBE PO PRN (15:00)
[2023-02-23] MEDS ORDERED: LOPERAMIDE HCL 2 MG CAP PO STA (15:52)
[2023-02-23] MEDS: MELATONIN 3 MG TAB PO SCH (21:15)
[2023-02-23] MEDS: ATORVASTATIN 40 MG TAB PO SCH (21:24)
[2023-02-24] MEDS: TORSEMIDE 10 MG TAB PO SCH ×2 (06:24→14:26)
[2023-02-24] MEDS: PANTOprazole 40 MG TAB PO SCH (06:24)
[2023-02-24] MEDS: LEVOTHYROXINE SODIUM 75 MCG TABLET PO SCH (06:24)
[2023-02-24] MEDS: Ipratropium HFA Inhaler (Combivent Respimat P&T Subs) INH SCH ×4 (07:23→19:55)
[2023-02-24] MEDS: Albuterol HFA 8 GM Inhaler (Combivent Respimat P&T Subs) INH SCH ×4 (07:23→19:56)
[2023-02-24] MEDS: ASPIRIN 81 MG ECTAB PO SCH (09:53)
[2023-02-24] MEDS: METOPROLOL TARTRATE 25 MG TAB PO SCH ×2 (09:53→21:26)
[2023-02-24] MEDS: buPROPion SR 100 MG TABCR PO SCH ×2 (09:53→21:24)
[2023-02-24] MEDS: TOPIRAMATE 100 MG TAB PO SCH (09:53)
[2023-02-24] MEDS: ENOXAPARIN INJ 40 MG/0.4 ML SYR SQ SCH ×2 (09:54→21:25)
[2023-02-24] MEDS: FOLIC ACID 1 MG TAB PO SCH (09:54)
[2023-02-24] MEDS: SPIRONOLACTONE 25 MG TAB PO SCH (09:54)
[2023-02-24] MEDS: MAGNESIUM OXIDE 400 MG TAB PO SCH (09:54)
[2023-02-24] MEDS: POTASSIUM CHLORIDE CRTAB 20 MEQ TABCR PO SCH ×2 (09:54→21:27)
[2023-02-24] MEDS: DICLOFENAC SOD 1% GEL 100 GM TUBE EXT SCH ×4 (09:55→21:25)
[2023-02-24] MEDS: SERTRALINE HCL 50 MG TABLET PO SCH (09:55)
[2023-02-24] MEDS: ISOSORBIDE MONO EXTENDED REL 30 MG TABCR PO SCH (10:27)
[2023-02-24] MEDS: INSULIN, Rapid-Acting PUMP SCH ×4 (10:31→21:25)
[2023-02-24] MEDS: LOPERAMIDE HCL 2 MG CAP PO PRN (13:14)
--- NOTE | 2023-02-24 17:56 | Hospitalist Progress Note ---
Date of Service February 24, 2023 Assessment & Plan (1) Failure to thrive: Plan: Multiple falls at home prompted the patient to be readmitted on 01/24. SNF placement recommended as patient has had several falls at home without ability to get up without significant assistance. However, presence of metal permanent tracheostomy and her morbid obesity are limiting factors with placement. Appreciate case management assistance, and several referrals are out across many skilled facilities. Awaiting placement per insurance authorization and bed availability versus appropriate equipment at home. (2) Diarrhea: Plan: Reports of diarrhea for the last 2 days, does also have a history of constipation on MiraLAX and Senokot, holding these Patient has a history of C. difficile infections in the past, testing on 02/21 was negative, continue Imodium as needed for diarrhea Check BMP in a.m. since has been feeling weak and has had ongoing once daily diarrhea (3) CKD (chronic kidney disease): Plan: Stable. Monitor intake and output. Avoid nephrotoxic agents Creatinine stable 1.5 on 02/18, no interventions at this time Check BMP in a.m. (4) GERD (gastroesophageal reflux disease): Plan: Stable on pantoprazole (5) Insulin-requiring or dependent type II diabetes mellitus: Plan: Continue home insulin pump. Jardiance discontinued on January 25, due to hypoglycemia. Glucose remains well controlled. Sliding scale insulin coverage as needed. DM2 diet (6) Chronic diastolic congestive heart failure: Plan: Stable. Continue current medical management. Monitor intake and output Continue torsemide twice daily, spironolactone, BP controlled with this regimen (7) Chronic respiratory failure: Plan: Stable on RA. Permanent tracheostomy is unremarkable and without signs of infection or drainage. She declines consideration of transition from metal trach to plastic trach. Continue home breathing txs, trach care History of COPD Continue azithro 250 mg MWF (8) Dyslipidemia: Plan: Continue home statin (9) Left knee pain: Plan: Continue home oxycodone as needed for pain. X-rays negative for fracture. Continue physical therapy (10) Physical deconditioning: Plan: Working with PT, placement pending as described above (11) Anemia: Plan: mild, normocytic anemia continue folic acid supplement Plan Anticipate eventual discharge to SNF facility when arrangements are finalized; medically stable for discharge when bed available. VS.home if lift chair delivered, caregivers arranged, and home modifications completed Admission and Anticipated Discharge Date Admission Date: January 24, 2023 Subjective Patient complains of feeling weak in general. Denies chest pain or shortness of breath. Review of Systems Review of Systems: All systems reviewed & are unremarkable except as noted in Subjective Physical Exam Physical Exam: General: Awake, conversant Heart: S1, S2/regular rate and rhythm, no murmur rubs or gallops Lungs: Clear to auscultation bilaterally. Normal effort Abdomen: Soft/nontender/nondistended. No hepatosplenomegaly Extremities: No clubbing/cyanosis. No edema Behavior: Appropriate, cooperative Results & Data Results & Data Vital Signs (Past 12 Hours) Vital Signs Temp Pulse Resp BP BP Pulse Ox O2 Del Method 02/24/23 16:00 74 20 92 Room Air 02/24/23 14:53 36.7 C 72 20 117/70 93 Room Air 02/24/23 08:30 Room Air, Trach Collar 02/24/23 10:26 36.6 C 76 20 121/78 95 Room Air 02/24/23 08:09 36.8 C 73 22 159/65 H 93 Room Air PG Care Time/CCT Total # of Minutes Spent Total Time Spent with Patient: Total time spent is greater than 50% in coordination of care (as documented) at patient's floor/unit and/or counseling patient: Coding Level of Care Code 66127 SUB INP/OBS CARE 2/35MIN Diagnoses Failure to thrive Diarrhea R19.7 CKD (chronic kidney disease) N18.9 GERD (gastroesophageal reflux disease) K21.9 Insulin-requiring or dependent type II diabetes mellitus E11.9; Z79.4 Chronic diastolic congestive heart failure I50.32 Chronic respiratory failure J96.10 Respiratory failure complication: unspecified whether with hypoxia or hypercapnia Dyslipidemia E78.5 Left knee pain M25.562 Physical deconditioning R53.81 Anemia D64.9 (7) Chronic respiratory failure Respiratory failure complication: unspecified whether with hypoxia or hypercapnia Qualified Code(s): J96.10 - Chronic respiratory failure, unspecified whether with hypoxia or hypercapnia
[2023-02-24] MEDS: ATORVASTATIN 40 MG TAB PO SCH (21:24)
[2023-02-24] MEDS: MELATONIN 3 MG TAB PO SCH (21:26)
[2023-02-25] MEDS: LEVOTHYROXINE SODIUM 75 MCG TABLET PO SCH (06:05)
[2023-02-25] MEDS: TORSEMIDE 10 MG TAB PO SCH ×2 (06:06→17:30)
[2023-02-25] MEDS: PANTOprazole 40 MG TAB PO SCH (06:06)
[2023-02-25 07:17] LABS: BUN Creatinine Ratio 23.6 (10-20); Calcium 8.5 mg/dl (8.6-10.3); Creatinine Clr Calc Pharmacy 55.9 ml/min; Est GFR (African American) 43.7 ml/min; Est GFR (Non-African American) 37.7 ml/min; Potassium 4.3 mmol/L (3.5-5.1)
[2023-02-25] MEDS: Albuterol HFA 8 GM Inhaler (Combivent Respimat P&T Subs) INH SCH ×4 (07:38→19:39)
[2023-02-25] MEDS: Ipratropium HFA Inhaler (Combivent Respimat P&T Subs) INH SCH ×4 (07:39→19:40)
[2023-02-25] MEDS: ISOSORBIDE MONO EXTENDED REL 30 MG TABCR PO SCH (09:12)
[2023-02-25] MEDS: FOLIC ACID 1 MG TAB PO SCH (09:12)
[2023-02-25] MEDS: ASPIRIN 81 MG ECTAB PO SCH (09:12)
[2023-02-25] MEDS: MAGNESIUM OXIDE 400 MG TAB PO SCH (09:12)
[2023-02-25] MEDS: SPIRONOLACTONE 25 MG TAB PO SCH (09:12)
[2023-02-25] MEDS: TOPIRAMATE 100 MG TAB PO SCH (09:12)
[2023-02-25] MEDS: POTASSIUM CHLORIDE CRTAB 20 MEQ TABCR PO SCH ×2 (09:12→21:15)
[2023-02-25] MEDS: SERTRALINE HCL 50 MG TABLET PO SCH (09:13)
[2023-02-25] MEDS: METOPROLOL TARTRATE 25 MG TAB PO SCH ×2 (09:13→21:17)
[2023-02-25] MEDS: ENOXAPARIN INJ 40 MG/0.4 ML SYR SQ SCH ×2 (09:13→21:13)
[2023-02-25] MEDS: buPROPion SR 100 MG TABCR PO SCH ×2 (09:13→21:13)
[2023-02-25] MEDS: DICLOFENAC SOD 1% GEL 100 GM TUBE EXT SCH ×4 (09:14→21:12)
[2023-02-25] MEDS: INSULIN, Rapid-Acting PUMP SCH ×4 (09:18→21:14)
--- NOTE | 2023-02-25 15:01 | Hospitalist Progress Note ---
Date of Service February 25, 2023 Assessment & Plan (1) Failure to thrive: Plan: Multiple falls at home prompted the patient to be readmitted on 01/24. SNF placement recommended as patient has had several falls at home without ability to get up without significant assistance. However, presence of metal permanent tracheostomy and her morbid obesity are limiting factors with placement. Appreciate case management assistance, and several referrals are out across many skilled facilities. Awaiting placement per insurance authorization and bed availability versus appropriate equipment at home. (2) Diarrhea: Plan: Reports of diarrhea for the last 2 days, does also have a history of constipation on MiraLAX and Senokot, holding these Patient has a history of C. difficile infections in the past, testing on 02/21 was negative, continue Imodium as needed for diarrhea Check BMP in a.m. since has been feeling weak and has had ongoing once daily diarrhea (3) CKD (chronic kidney disease): Plan: Stable. Monitor intake and output. Avoid nephrotoxic agents Creatinine stable 1.5 on 02/18, no interventions at this time Check BMP in a.m. (4) GERD (gastroesophageal reflux disease): Plan: Stable on pantoprazole (5) Insulin-requiring or dependent type II diabetes mellitus: Plan: Continue home insulin pump. Jardiance discontinued on January 25, due to hypoglycemia. Glucose remains well controlled. Sliding scale insulin coverage as needed. DM2 diet (6) Chronic diastolic congestive heart failure: Plan: Stable. Continue current medical management. Monitor intake and output Continue torsemide twice daily, spironolactone, BP controlled with this regimen (7) Chronic respiratory failure: Plan: Stable on RA. Permanent tracheostomy is unremarkable and without signs of infection or drainage. She declines consideration of transition from metal trach to plastic trach. Continue home breathing txs, trach care History of COPD Continue azithro 250 mg MWF (8) Dyslipidemia: Plan: Continue home statin (9) Left knee pain: Plan: Continue home oxycodone as needed for pain. X-rays negative for fracture. Continue physical therapy (10) Physical deconditioning: Plan: Working with PT, placement pending as described above (11) Anemia: Plan: mild, normocytic anemia continue folic acid supplement Plan Anticipate eventual discharge to SNF facility when arrangements are finalized; medically stable for discharge when bed available. VS.home if lift chair delivered, caregivers arranged, and home modifications completed Admission and Anticipated Discharge Date Admission Date: January 24, 2023 Subjective Patient feels well. Denies chest pain or shortness of breath. Review of Systems Review of Systems: All systems reviewed & are unremarkable except as noted in Subjective Physical Exam Physical Exam: General: Awake, conversant. Trach in place. Morbidly obese Heart: S1, S2/regular rate and rhythm, no murmur rubs or gallops Lungs: Clear to auscultation bilaterally. Normal effort Abdomen: Soft/nontender/nondistended. No hepatosplenomegaly Extremities: No clubbing/cyanosis. No edema Behavior: Appropriate, cooperative Results & Data Results & Data Vital Signs (Past 12 Hours) Vital Signs Temp Pulse Resp BP Pulse Ox O2 Del Method 02/25/23 14:42 74 18 95 Room Air 02/25/23 09:15 Room Air 02/25/23 11:54 71 18 94 Room Air 02/25/23 08:40 36.7 C 70 18 113/71 96 Room Air 02/25/23 07:40 63 18 96 Room Air PG Care Time/CCT Total # of Minutes Spent Total Time Spent with Patient: Total time spent is greater than 50% in coordination of care (as documented) at patient's floor/unit and/or counseling patient: Coding Level of Care Code 64020 SUB INP/OBS CARE 12/15MIN Diagnoses Failure to thrive Diarrhea R19.7 CKD (chronic kidney disease) N18.9 GERD (gastroesophageal reflux disease) K21.9 Insulin-requiring or dependent type II diabetes mellitus E11.9; Z79.4 Chronic diastolic congestive heart failure I50.32 Chronic respiratory failure J96.10 Respiratory failure complication: unspecified whether with hypoxia or hypercapnia Dyslipidemia E78.5 Left knee pain M25.562 Physical deconditioning R53.81 Anemia D64.9 (7) Chronic respiratory failure Respiratory failure complication: unspecified whether with hypoxia or hypercapnia Qualified Code(s): J96.10 - Chronic respiratory failure, unspecified whether with hypoxia or hypercapnia
[2023-02-25] MEDS: ATORVASTATIN 40 MG TAB PO SCH (21:12)
[2023-02-25] MEDS: MELATONIN 3 MG TAB PO SCH (21:14)
[2023-02-25] MEDS: oxyCODONE HCL IR 5 MG TAB (IMMEDIATE RELEASE) PO PRN (23:23)
[2023-02-26] MEDS: LEVOTHYROXINE SODIUM 75 MCG TABLET PO SCH (06:34)
[2023-02-26] MEDS: PANTOprazole 40 MG TAB PO SCH (06:35)
[2023-02-26] MEDS: TORSEMIDE 10 MG TAB PO SCH ×2 (06:35→13:45)
[2023-02-26] MEDS: Albuterol HFA 8 GM Inhaler (Combivent Respimat P&T Subs) INH SCH ×4 (07:35→20:00)
[2023-02-26] MEDS: Ipratropium HFA Inhaler (Combivent Respimat P&T Subs) INH SCH ×4 (07:35→20:00)
[2023-02-26] MEDS: buPROPion SR 100 MG TABCR PO SCH ×2 (09:06→20:43)
[2023-02-26] MEDS: METOPROLOL TARTRATE 25 MG TAB PO SCH ×2 (09:06→20:44)
[2023-02-26] MEDS: FOLIC ACID 1 MG TAB PO SCH (09:06)
[2023-02-26] MEDS: ASPIRIN 81 MG ECTAB PO SCH (09:06)
[2023-02-26] MEDS: ISOSORBIDE MONO EXTENDED REL 30 MG TABCR PO SCH (09:06)
[2023-02-26] MEDS: ENOXAPARIN INJ 40 MG/0.4 ML SYR SQ SCH ×2 (09:07→20:42)
[2023-02-26] MEDS: SPIRONOLACTONE 25 MG TAB PO SCH (09:07)
[2023-02-26] MEDS: POTASSIUM CHLORIDE CRTAB 20 MEQ TABCR PO SCH ×2 (09:07→20:43)
[2023-02-26] MEDS: MAGNESIUM OXIDE 400 MG TAB PO SCH (09:07)
[2023-02-26] MEDS: SERTRALINE HCL 50 MG TABLET PO SCH (09:07)
[2023-02-26] MEDS: TOPIRAMATE 100 MG TAB PO SCH (09:07)
[2023-02-26] MEDS: DICLOFENAC SOD 1% GEL 100 GM TUBE EXT SCH ×4 (09:08→20:41)
[2023-02-26] MEDS: INSULIN, Rapid-Acting PUMP SCH ×4 (09:44→20:43)
--- NOTE | 2023-02-26 13:24 | Hospitalist Progress Note ---
Date of Service February 26, 2023 Assessment & Plan (1) Failure to thrive: Plan: Multiple falls at home prompted the patient to be readmitted on 01/24. SNF placement recommended as patient has had several falls at home without ability to get up without significant assistance. However, presence of metal permanent tracheostomy and her morbid obesity are limiting factors with placement. Appreciate case management assistance, and several referrals are out across many skilled facilities. Awaiting placement per insurance authorization and bed availability versus appropriate equipment at home. (2) Diarrhea: Plan: Reports of diarrhea for the last 2 days, does also have a history of constipation on MiraLAX and Senokot, holding these Patient has a history of C. difficile infections in the past, testing on 02/21 was negative, continue Imodium as needed for diarrhea BMP unremarkable on 02/25 (3) CKD (chronic kidney disease): Plan: Stable. Monitor intake and output. Avoid nephrotoxic agents Creatinine stable 1.5 on 02/18, no interventions at this time BMP unremarkable on 02/25 (4) GERD (gastroesophageal reflux disease): Plan: Stable on pantoprazole (5) Insulin-requiring or dependent type II diabetes mellitus: Plan: Continue home insulin pump. Jardiance discontinued on January 25, due to hypoglycemia. Glucose remains well controlled. Sliding scale insulin coverage as needed. DM2 diet (6) Chronic diastolic congestive heart failure: Plan: Stable. Continue current medical management. Monitor intake and output Continue torsemide twice daily, spironolactone, BP controlled with this regimen (7) Chronic respiratory failure: Plan: Stable on RA. Permanent tracheostomy is unremarkable and without signs of infection or drainage. She declines consideration of transition from metal trach to plastic trach. Continue home breathing txs, trach care History of COPD Continue azithro 250 mg MWF (8) Dyslipidemia: Plan: Continue home statin (9) Left knee pain: Plan: Continue home oxycodone as needed for pain. X-rays negative for fracture. Continue physical therapy (10) Physical deconditioning: Plan: Working with PT, placement pending as described above (11) Anemia: Plan: mild, normocytic anemia continue folic acid supplement Plan Anticipate eventual discharge to SNF facility when arrangements are finalized; medically stable for discharge when bed available. VS.home if lift chair delivered, caregivers arranged, and home modifications completed Admission and Anticipated Discharge Date Admission Date: January 24, 2023 Subjective Patient feels well. Denies chest pain or shortness of breath Review of Systems Review of Systems: All systems reviewed & are unremarkable except as noted in Subjective Physical Exam Physical Exam: General: Awake, conversant. Trach in place. Morbidly obese Heart: S1, S2/regular rate and rhythm, no murmur rubs or gallops Lungs: Clear to auscultation bilaterally. Normal effort Abdomen: Soft/nontender/nondistended. No hepatosplenomegaly Extremities: No clubbing/cyanosis. No edema Behavior: Appropriate, cooperative Results & Data Results & Data Vital Signs (Past 12 Hours) Vital Signs Temp Pulse Resp BP Pulse Ox O2 Del Method FiO2 02/26/23 11:14 67 14 95 Room Air 21 02/26/23 11:13 Room Air, Trach Collar 02/26/23 11:13 67 13 95 Room Air 02/26/23 07:38 36.5 C 69 18 129/78 95 Room Air 02/26/23 07:35 69 16 95 Room Air PG Care Time/CCT Total # of Minutes Spent Total Time Spent with Patient: Total time spent is greater than 50% in coordination of care (as documented) at patient's floor/unit and/or counseling patient: Coding Level of Care Code 43244 SUB INP/OBS CARE 12/15MIN Diagnoses Failure to thrive Diarrhea R19.7 CKD (chronic kidney disease) N18.9 GERD (gastroesophageal reflux disease) K21.9 Insulin-requiring or dependent type II diabetes mellitus E11.9; Z79.4 Chronic diastolic congestive heart failure I50.32 Chronic respiratory failure J96.10 Respiratory failure complication: unspecified whether with hypoxia or hypercapnia Dyslipidemia E78.5 Left knee pain M25.562 Physical deconditioning R53.81 Anemia D64.9 (7) Chronic respiratory failure Respiratory failure complication: unspecified whether with hypoxia or hypercapnia Qualified Code(s): J96.10 - Chronic respiratory failure, unspecified whether with hypoxia or hypercapnia
[2023-02-26] MEDS: ATORVASTATIN 40 MG TAB PO SCH (20:42)
[2023-02-26] MEDS: MELATONIN 3 MG TAB PO SCH (20:43)
[2023-02-26] MEDS: oxyCODONE HCL IR 5 MG TAB (IMMEDIATE RELEASE) PO PRN (23:09)
[2023-02-27] MEDS: ALBUT/IPRATROP 3MG/0.5MG NEB 3 ML VIAL INH PRN ×4 (05:11→19:51)
[2023-02-27] MEDS: PANTOprazole 40 MG TAB PO SCH (06:16)
[2023-02-27] MEDS: LEVOTHYROXINE SODIUM 75 MCG TABLET PO SCH (06:16)
[2023-02-27] MEDS: TORSEMIDE 10 MG TAB PO SCH ×2 (06:17→14:12)
[2023-02-27] MEDS: Ipratropium HFA Inhaler (Combivent Respimat P&T Subs) INH SCH ×4 (07:31→19:52)
[2023-02-27] MEDS: Albuterol HFA 8 GM Inhaler (Combivent Respimat P&T Subs) INH SCH ×4 (07:31→19:52)
[2023-02-27] MEDS: ASPIRIN 81 MG ECTAB PO SCH (09:06)
[2023-02-27] MEDS: buPROPion SR 100 MG TABCR PO SCH ×2 (09:06→20:20)
[2023-02-27] MEDS: ISOSORBIDE MONO EXTENDED REL 30 MG TABCR PO SCH (09:06)
[2023-02-27] MEDS: FOLIC ACID 1 MG TAB PO SCH (09:06)
[2023-02-27] MEDS: ENOXAPARIN INJ 40 MG/0.4 ML SYR SQ SCH ×2 (09:14→20:20)
[2023-02-27] MEDS: DICLOFENAC SOD 1% GEL 100 GM TUBE EXT SCH ×4 (09:14→20:20)
[2023-02-27] MEDS: MAGNESIUM OXIDE 400 MG TAB PO SCH (09:15)
[2023-02-27] MEDS: SPIRONOLACTONE 25 MG TAB PO SCH (09:15)
[2023-02-27] MEDS: METOPROLOL TARTRATE 25 MG TAB PO SCH ×2 (09:15→20:23)
[2023-02-27] MEDS: TOPIRAMATE 100 MG TAB PO SCH (09:15)
[2023-02-27] MEDS: POTASSIUM CHLORIDE CRTAB 20 MEQ TABCR PO SCH ×2 (09:15→20:22)
[2023-02-27] MEDS: SERTRALINE HCL 50 MG TABLET PO SCH (09:15)
[2023-02-27] MEDS: INSULIN, Rapid-Acting PUMP SCH ×4 (09:21→22:41)
--- NOTE | 2023-02-27 15:16 | Hospitalist Progress Note ---
Date of Service February 27, 2023 Assessment & Plan (1) Failure to thrive: Plan: Multiple falls at home prompted the patient to be readmitted on 01/24. SNF placement recommended as patient has had several falls at home without ability to get up without significant assistance. However, presence of metal permanent tracheostomy and her morbid obesity are limiting factors with placement. Appreciate case management assistance, and several referrals are out across many skilled facilities. Awaiting placement per insurance authorization and bed availability versus appropriate equipment at home. (2) Diarrhea: Plan: Reports of diarrhea for the last 2 days, does also have a history of constipation on MiraLAX and Senokot, holding these Patient has a history of C. difficile infections in the past, testing on 02/21 was negative, continue Imodium as needed for diarrhea BMP unremarkable on 02/25 (3) CKD (chronic kidney disease): Plan: Stable. Monitor intake and output. Avoid nephrotoxic agents Creatinine stable 1.5 on 02/18, no interventions at this time BMP unremarkable on 02/25 (4) GERD (gastroesophageal reflux disease): Plan: Stable on pantoprazole (5) Insulin-requiring or dependent type II diabetes mellitus: Plan: Continue home insulin pump. Jardiance discontinued on January 25, due to hypoglycemia. Glucose remains well controlled. Sliding scale insulin coverage as needed. DM2 diet (6) Chronic diastolic congestive heart failure: Plan: Stable. Continue current medical management. Monitor intake and output Continue torsemide twice daily, spironolactone, BP controlled with this regimen (7) Chronic respiratory failure: Plan: Stable on RA. Permanent tracheostomy is unremarkable and without signs of infection or drainage. She declines consideration of transition from metal trach to plastic trach. Continue home breathing txs, trach care History of COPD Continue azithro 250 mg MWF (8) Dyslipidemia: Plan: Continue home statin (9) Left knee pain: Plan: Continue home oxycodone as needed for pain. X-rays negative for fracture. Continue physical therapy (10) Physical deconditioning: Plan: Working with PT, placement pending as described above (11) Anemia: Plan: mild, normocytic anemia continue folic acid supplement Plan Anticipate eventual discharge to SNF facility when arrangements are finalized; medically stable for discharge when bed available. VS.home if lift chair delivered, caregivers arranged, and home modifications completed Admission and Anticipated Discharge Date Admission Date: January 24, 2023 Subjective Patient feels well. Denies chest pain or shortness of breath Review of Systems Review of Systems: All systems reviewed & are unremarkable except as noted in Subjective Physical Exam Physical Exam: General: Awake, conversant. Trach in place. Morbidly obese Heart: S1, S2/regular rate and rhythm, no murmur rubs or gallops Lungs: Clear to auscultation bilaterally. Normal effort Abdomen: Soft/nontender/nondistended. No hepatosplenomegaly Extremities: No clubbing/cyanosis. No edema Behavior: Appropriate, cooperative Results & Data Results & Data Vital Signs (Past 12 Hours) Vital Signs Temp Pulse Resp BP Pulse Ox O2 Del Method FiO2 02/27/23 11:25 Room Air 02/27/23 10:18 76 16 93 Room Air 02/27/23 07:57 36.3 C L 78 18 144/77 H 94 Room Air 02/27/23 07:32 76 20 94 Room Air 02/27/23 05:11 94 H 25 H 95 Free Flow/Blow-by 21 PG Care Time/CCT Total # of Minutes Spent Total Time Spent with Patient: Total time spent is greater than 50% in coordination of care (as documented) at patient's floor/unit and/or counseling patient: Coding Level of Care Code 43741 SUB INP/OBS CARE 12/15MIN Diagnoses Failure to thrive Diarrhea R19.7 CKD (chronic kidney disease) N18.9 GERD (gastroesophageal reflux disease) K21.9 Insulin-requiring or dependent type II diabetes mellitus E11.9; Z79.4 Chronic diastolic congestive heart failure I50.32 Chronic respiratory failure J96.10 Respiratory failure complication: unspecified whether with hypoxia or hypercapnia Dyslipidemia E78.5 Left knee pain M25.562 Physical deconditioning R53.81 Anemia D64.9 (7) Chronic respiratory failure Respiratory failure complication: unspecified whether with hypoxia or hypercapnia Qualified Code(s): J96.10 - Chronic respiratory failure, unspecified whether with hypoxia or hypercapnia
[2023-02-27] MEDS: MELATONIN 3 MG TAB PO SCH (20:21)
[2023-02-27] MEDS: ATORVASTATIN 40 MG TAB PO SCH (20:22)
[2023-02-28] MEDS: LEVOTHYROXINE SODIUM 75 MCG TABLET PO SCH (06:21)
[2023-02-28] MEDS: PANTOprazole 40 MG TAB PO SCH (06:21)
[2023-02-28] MEDS: TORSEMIDE 10 MG TAB PO SCH ×2 (06:22→15:21)
[2023-02-28] MEDS: ENOXAPARIN INJ 40 MG/0.4 ML SYR SQ SCH ×2 (07:41→20:25)
[2023-02-28] MEDS: METOPROLOL TARTRATE 25 MG TAB PO SCH ×2 (07:42→20:25)
[2023-02-28] MEDS: ISOSORBIDE MONO EXTENDED REL 30 MG TABCR PO SCH (07:43)
[2023-02-28] MEDS: MAGNESIUM OXIDE 400 MG TAB PO SCH (07:43)
[2023-02-28] MEDS: TOPIRAMATE 100 MG TAB PO SCH (07:44)
[2023-02-28] MEDS: buPROPion SR 100 MG TABCR PO SCH ×2 (07:44→20:24)
[2023-02-28] MEDS: SPIRONOLACTONE 25 MG TAB PO SCH (07:44)
[2023-02-28] MEDS: ASPIRIN 81 MG ECTAB PO SCH (07:44)
[2023-02-28] MEDS: FOLIC ACID 1 MG TAB PO SCH (07:44)
[2023-02-28] MEDS: DICLOFENAC SOD 1% GEL 100 GM TUBE EXT SCH ×4 (07:45→20:26)
[2023-02-28] MEDS: POTASSIUM CHLORIDE CRTAB 20 MEQ TABCR PO SCH ×2 (07:45→20:25)
[2023-02-28] MEDS: SERTRALINE HCL 50 MG TABLET PO SCH (07:45)
[2023-02-28] MEDS: ALBUT/IPRATROP 3MG/0.5MG NEB 3 ML VIAL INH PRN (08:35)
[2023-02-28] MEDS: Ipratropium HFA Inhaler (Combivent Respimat P&T Subs) INH SCH ×4 (08:36→19:19)
[2023-02-28] MEDS: Albuterol HFA 8 GM Inhaler (Combivent Respimat P&T Subs) INH SCH ×4 (08:36→19:18)
[2023-02-28] MEDS: INSULIN, Rapid-Acting PUMP SCH ×4 (09:04→20:30)
[2023-02-28 09:17] LABS: Est GFR (African American) 39.1 ml/min; Est GFR (Non-African American) 33.7 ml/min
--- NOTE | 2023-02-28 15:16 | Hospitalist Progress Note ---
Date of Service February 28, 2023 Assessment & Plan (1) Failure to thrive: Plan: Multiple falls at home prompted the patient to be readmitted on 01/24. SNF placement recommended as patient has had several falls at home without ability to get up without significant assistance. However, presence of metal permanent tracheostomy and her morbid obesity are limiting factors with placement. Appreciate case management assistance, and several referrals are out across many skilled facilities. Awaiting placement per insurance authorization and bed availability versus appropriate equipment at home. (2) Diarrhea: Plan: Reports of diarrhea for the last 2 days, does also have a history of constipation on MiraLAX and Senokot, holding these Patient has a history of C. difficile infections in the past, testing on 02/21 was negative, continue Imodium as needed for diarrhea BMP unremarkable on 02/25 (3) CKD (chronic kidney disease): Plan: Stable. Monitor intake and output. Avoid nephrotoxic agents Creatinine stable 1.5 on 02/18, no interventions at this time BMP unremarkable on 02/25 (4) GERD (gastroesophageal reflux disease): Plan: Stable on pantoprazole (5) Insulin-requiring or dependent type II diabetes mellitus: Plan: Continue home insulin pump. Jardiance discontinued on January 25, due to hypoglycemia. Glucose remains well controlled. Sliding scale insulin coverage as needed. DM2 diet (6) Chronic diastolic congestive heart failure: Plan: Stable. Continue current medical management. Monitor intake and output Continue torsemide twice daily, spironolactone, BP controlled with this regimen (7) Chronic respiratory failure: Plan: Stable on RA. Permanent tracheostomy is unremarkable and without signs of infection or drainage. She declines consideration of transition from metal trach to plastic trach. Continue home breathing txs, trach care History of COPD Continue azithro 250 mg MWF (8) Dyslipidemia: Plan: Continue home statin (9) Left knee pain: Plan: Continue home oxycodone as needed for pain. X-rays negative for fracture. Continue physical therapy (10) Physical deconditioning: Plan: Working with PT, placement pending as described above (11) Anemia: Plan: mild, normocytic anemia continue folic acid supplement Plan Anticipate eventual discharge to SNF facility when arrangements are finalized; medically stable for discharge when bed available. VS.home if lift chair delivered, caregivers arranged, and home modifications completed Admission and Anticipated Discharge Date Admission Date: January 24, 2023 Subjective Patient feels well. Denies chest pain or shortness of breath Review of Systems Review of Systems: All systems reviewed & are unremarkable except as noted in Subjective Physical Exam Physical Exam: General: Awake, conversant. Trach in place. Morbidly obese Heart: S1, S2/regular rate and rhythm, no murmur rubs or gallops Lungs: Clear to auscultation bilaterally. Normal effort Abdomen: Soft/nontender/nondistended. No hepatosplenomegaly Extremities: No clubbing/cyanosis. No edema Behavior: Appropriate, cooperative Results & Data Results & Data Vital Signs (Past 12 Hours) Vital Signs Temp Pulse Resp BP Pulse Ox O2 Del Method FiO2 02/28/23 15:06 72 18 93 Room Air 21 02/28/23 11:06 64 18 95 Room Air 02/28/23 07:40 Room Air 02/28/23 08:38 79 20 95 Room Air 02/28/23 07:44 36.7 C 64 20 116/67 92 Room Air PG Care Time/CCT Total # of Minutes Spent Total Time Spent with Patient: Total time spent is greater than 50% in coordination of care (as documented) at patient's floor/unit and/or counseling patient: Coding Level of Care Code 41186 SUB INP/OBS CARE 25MIN Diagnoses Failure to thrive Diarrhea R19.7 CKD (chronic kidney disease) N18.9 GERD (gastroesophageal reflux disease) K21.9 Insulin-requiring or dependent type II diabetes mellitus E11.9; Z79.4 Chronic diastolic congestive heart failure I50.32 Chronic respiratory failure J96.10 Respiratory failure complication: unspecified whether with hypoxia or hypercapnia Dyslipidemia E78.5 Left knee pain M25.562 Physical deconditioning R53.81 Anemia D64.9 (7) Chronic respiratory failure Respiratory failure complication: unspecified whether with hypoxia or hypercapnia Qualified Code(s): J96.10 - Chronic respiratory failure, unspecified whether with hypoxia or hypercapnia
[2023-02-28] MEDS: ATORVASTATIN 40 MG TAB PO SCH (20:25)
[2023-02-28] MEDS: MELATONIN 3 MG TAB PO SCH (20:25)
[2023-03-01] MEDS: LEVOTHYROXINE SODIUM 75 MCG TABLET PO SCH (05:57)
[2023-03-01] MEDS: PANTOprazole 40 MG TAB PO SCH (05:58)
[2023-03-01] MEDS: TORSEMIDE 10 MG TAB PO SCH ×2 (05:58→16:11)
[2023-03-01] MEDS: Albuterol HFA 8 GM Inhaler (Combivent Respimat P&T Subs) INH SCH ×4 (07:29→19:30)
[2023-03-01] MEDS: Ipratropium HFA Inhaler (Combivent Respimat P&T Subs) INH SCH ×4 (07:30→19:30)
[2023-03-01] MEDS: SERTRALINE HCL 50 MG TABLET PO SCH (08:25)
[2023-03-01] MEDS: ENOXAPARIN INJ 40 MG/0.4 ML SYR SQ SCH ×2 (08:26→20:42)
[2023-03-01] MEDS: SPIRONOLACTONE 25 MG TAB PO SCH (08:26)
[2023-03-01] MEDS: POTASSIUM CHLORIDE CRTAB 20 MEQ TABCR PO SCH ×2 (08:26→20:41)
[2023-03-01] MEDS: MAGNESIUM OXIDE 400 MG TAB PO SCH (08:26)
[2023-03-01] MEDS: ASPIRIN 81 MG ECTAB PO SCH (08:26)
[2023-03-01] MEDS: ISOSORBIDE MONO EXTENDED REL 30 MG TABCR PO SCH (08:26)
[2023-03-01] MEDS: TOPIRAMATE 100 MG TAB PO SCH (08:26)
[2023-03-01] MEDS: METOPROLOL TARTRATE 25 MG TAB PO SCH ×2 (08:26→20:41)
[2023-03-01] MEDS: DICLOFENAC SOD 1% GEL 100 GM TUBE EXT SCH ×4 (08:26→20:42)
[2023-03-01] MEDS: buPROPion SR 100 MG TABCR PO SCH ×2 (08:27→20:43)
[2023-03-01] MEDS: FOLIC ACID 1 MG TAB PO SCH (08:27)
[2023-03-01] MEDS: INSULIN, Rapid-Acting PUMP SCH ×4 (09:16→20:55)
--- NOTE | 2023-03-01 19:33 | Hospitalist Progress Note ---
Date of Service March 01, 2023 Assessment & Plan (1) Failure to thrive: Plan: Multiple falls at home prompted the patient to be readmitted on 01/24/23. Previous to that she had had a prolonged, several month stay trying to secure SNF placement. She ultimately ended up at home with numerous services in place - but, again, did poorly over her brief time at home including multiple falls. Case management working on SNF placement. Metal trach and morbid obesity are barriers to SNF placement, however. Appreciate SW efforts. (2) Diarrhea: Plan: resolved recent c diff negative (3) CKD (chronic kidney disease): Plan: stage 4 stable bmps while here (4) GERD (gastroesophageal reflux disease): Plan: cont PPI (5) Insulin-requiring or dependent type II diabetes mellitus: Plan: Continue home insulin pump. EXCELLENT control on pump. last a1c 7.2% in 10/2022. check another while here. (6) Chronic diastolic congestive heart failure: Plan: compensated. Continue torsemide twice daily, spironolactone, metoprolol BID. (7) Chronic respiratory failure: Plan: Stable . uses HS O2 via trach. She declines consideration of transition from metal trach to plastic trach. Continue azithro 250 mg MWF - will reorder QTc on EKG about 1 month ago was <450msec (8) Dyslipidemia: Plan: Continue home statin (9) Left knee pain: Plan: Continue home oxycodone as needed for pain. X-rays negative for fracture. Continue physical therapy (10) Physical deconditioning: Plan: PT/OT needs SNF placement (11) Anemia: Plan: mild, normocytic anemia continue folic acid supplement (12) Fracture of distal end of right femur: Plan: has not had x-rays in several months will repeat them in am for stability (13) Morbid obesity with BMI of 60.0-69.9, adult: Plan: BMI ~60 Plan appreciate social work assistance for SNF placement Admission and Anticipated Discharge Date Admission Date: January 24, 2023 Subjective patient without new complaints had 1 episode of coughing up a small amount of sputum yesterday that was blood - tinged but none since denies dyspnea eating well she reports having fallen 4x's at home before coming back to [facility] since the falls her right knee has been a bit more painful than baseline she is still intent on returning home - "I need liftchair" - reports it will be available on March 10? Review of Systems Review of Systems: gen - no fevers, good appetite cv - no cp pulm - no dyspnea GI - no further diarrhea; had normal BM today Physical Exam Physical Exam: gen - NAD, laying in bed, obese, pleasant mouth - MMM neck - metal trach in place heart - RRR, s1 s2, no murmur lungs - occasional end- exp wheeze, scant rales bases; no distress abd - soft obese NT BS+ ext - right knee is in chronically flexed position and the leg is shorter than the left leg; no peripheral edema, pulses 2+ b/l Results & Data Results & Data Vital Signs (Past 12 Hours) Vital Signs Temp Pulse Resp BP Pulse Ox O2 Del Method 03/01/23 15:28 36.6 C 70 16 118/68 94 Room Air 03/01/23 14:37 71 18 96 Room Air 03/01/23 11:37 65 18 98 Room Air 03/01/23 09:38 Room Air, Trach Collar Laboratory Results Laboratory Results - last 24 hr 02/28/23 03/01/23 03/01/23 20:22 07:53 12:02 POC Glucose 190 H 145 H 162 H 03/01/23 17:04 POC Glucose 117 H PG Care Time/CCT Total # of Minutes Spent Total Time Spent with Patient: Total time spent is greater than 50% in coordination of care (as documented) at patient's floor/unit and/or counseling patient: Coding Level of Care Code 05757 SUB INP/OBS CARE 12/15MIN Diagnoses Failure to thrive Diarrhea R19.7 CKD (chronic kidney disease) N18.9 GERD (gastroesophageal reflux disease) K21.9 Insulin-requiring or dependent type II diabetes mellitus E11.9; Z79.4 Chronic diastolic congestive heart failure I50.32 Chronic respiratory failure J96.10 Respiratory failure complication: unspecified whether with hypoxia or hypercapnia Dyslipidemia E78.5 Left knee pain M25.562 Physical deconditioning R53.81 Anemia D64.9 Fracture of distal end of right femur S72.401A Morbid obesity with BMI of 60.0-69.9, adult E66.01; Z68.44 (7) Chronic respiratory failure Respiratory failure complication: unspecified whether with hypoxia or hypercapnia Qualified Code(s): J96.10 - Chronic respiratory failure, unspecified whether with hypoxia or hypercapnia
[2023-03-01] MEDS: MELATONIN 3 MG TAB PO SCH (20:43)
[2023-03-01] MEDS: ATORVASTATIN 40 MG TAB PO SCH (20:44)
[2023-03-02] MEDS: TORSEMIDE 10 MG TAB PO SCH ×2 (06:23→16:28)
[2023-03-02] MEDS: LEVOTHYROXINE SODIUM 75 MCG TABLET PO SCH (06:23)
[2023-03-02] MEDS: PANTOprazole 40 MG TAB PO SCH (06:23)
[2023-03-02] MEDS: Ipratropium HFA Inhaler (Combivent Respimat P&T Subs) INH SCH ×4 (07:40→19:04)
[2023-03-02] MEDS: Albuterol HFA 8 GM Inhaler (Combivent Respimat P&T Subs) INH SCH ×4 (07:40→19:04)
--- NOTE | 2023-03-02 08:16 | XRay Report ---
XR knee RT 1 or 2V routine CLINICAL HISTORY: h/o femur fracture; assess healing TECHNIQUE: 2 views of the right knee were obtained. Comparison: Comparison is made to right knee radiographs 11/28/2022 FINDINGS: Limited evaluation due to patient positioning. 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 Bony callus formatio n is seen. The depression of the lateral tibial plateau is not well seen on this exam. IMPRESSION: Bony callus formation is seen about the nonunited distal femoral fracture with stable to possibly sli ghtly worsened alignment. ACT 112: Negative or not required by law. Electronically signed by: Layo Cutler M.D. 03/02/2023 8:15 AM
[2023-03-02] MEDS: ISOSORBIDE MONO EXTENDED REL 30 MG TABCR PO SCH (08:33)
[2023-03-02] MEDS: METOPROLOL TARTRATE 25 MG TAB PO SCH ×2 (08:33→20:59)
[2023-03-02] MEDS: POTASSIUM CHLORIDE CRTAB 20 MEQ TABCR PO SCH ×2 (08:34→20:59)
[2023-03-02] MEDS: ASPIRIN 81 MG ECTAB PO SCH (08:35)
[2023-03-02] MEDS: buPROPion SR 100 MG TABCR PO SCH ×2 (08:35→20:59)
[2023-03-02] MEDS: DICLOFENAC SOD 1% GEL 100 GM TUBE EXT SCH ×4 (08:35→20:59)
[2023-03-02] MEDS: SPIRONOLACTONE 25 MG TAB PO SCH (08:36)
[2023-03-02] MEDS: MAGNESIUM OXIDE 400 MG TAB PO SCH (08:36)
[2023-03-02] MEDS: FOLIC ACID 1 MG TAB PO SCH (08:36)
[2023-03-02] MEDS: TOPIRAMATE 100 MG TAB PO SCH (08:36)
[2023-03-02] MEDS: SERTRALINE HCL 50 MG TABLET PO SCH (08:36)
[2023-03-02] MEDS: ENOXAPARIN INJ 40 MG/0.4 ML SYR SQ SCH ×2 (08:36→20:59)
[2023-03-02] MEDS: INSULIN, Rapid-Acting PUMP SCH ×4 (09:12→21:12)
[2023-03-02] MEDS: AZITHROMYCIN 250 MG TAB PO SCH (12:01)
--- NOTE | 2023-03-02 20:06 | Hospitalist Progress Note ---
Date of Service March 02, 2023 Assessment & Plan (1) Failure to thrive: Plan: Multiple falls at home prompted the patient to be readmitted on 01/24/23. Previous to that she had had a prolonged, several month stay trying to secure SNF placement. She ultimately ended up at home with numerous services in place - but, again, did poorly over her brief time at home including multiple falls. Case management working on SNF placement. Metal trach and morbid obesity are barriers to SNF placement, however. Appreciate SW efforts. I agree with social work that going home is VERY UNSAFE and I do not recommend such. She has already demonstrated that going home - even though she had caregivers previously - was challenging and not safe. (2) Diarrhea: Plan: resolved recent c diff negative (3) CKD (chronic kidney disease): Plan: stage 4 stable bmps while here Cr in am (4) GERD (gastroesophageal reflux disease): Plan: cont PPI (5) Insulin-requiring or dependent type II diabetes mellitus: Plan: Continue home insulin pump. EXCELLENT control on pump. last a1c 7.2% in 10/2022. check another while here. (6) Chronic diastolic congestive heart failure: Plan: compensated. Continue torsemide twice daily, spironolactone, metoprolol BID. (7) Chronic respiratory failure: Plan: Stable . uses HS O2 via trach. She declines consideration of transition from metal trach to plastic trach. Continue azithro 250 mg MWF - will reorder QTc on EKG about 1 month ago was <450msec has had 2 episodes of mild sputum last 48 hours but no changes otherwise stable o2 sats, good appetite, etc (8) Dyslipidemia: Plan: Continue home statin (9) Left knee pain: Plan: Continue home oxycodone as needed for pain. X-rays negative for fracture. Continue physical therapy (10) Physical deconditioning: Plan: PT/OT needs SNF placement (11) Anemia: Plan: mild, normocytic anemia continue folic acid supplement (12) Fracture of distal end of right femur: Plan: repeat x-rays today of right femur/knee with no major changes since the last imaging cont pain meds prn schedule tylenol 1gm TID cont voltaren gel qid (13) Morbid obesity with BMI of 60.0-69.9, adult: Plan: BMI ~60 Plan appreciate social work assistance for SNF placement left harrell erythema - I placed demarkation lines at the borders of this region and, if any worsening, would Rx for cellulitis will re-examine tomorrow Admission and Anticipated Discharge Date Admission Date: January 24, 2023 Subjective she was despondent during my visit she had a talk with Jaz from social work today - they discussed that going home is not an option - she does not have the proper or right amount of caregivers to safely go home we discussed SNF placement in detail told her I support SNF placement - she is dependent on others for many ADLs and going home is unsafe she coughed up some sputum this am but none since Review of Systems Review of Systems: cv - no chest pain pulm - no dyspnea at rest GI - had bowel movement today Physical Exam Physical Exam: gen - NAD, laying in bed, obese, sad mood today mouth - MMM neck - metal trach in place heart - RRR, s1 s2, no murmur lungs - occasional end- exp wheeze, scant rales scattered; no distress abd - soft obese NT BS+ ext - right knee is in chronically flexed position and the leg is shorter than the left leg; no peripheral edema, pulses 2+ b/l skin - abrasions left anterior harrell with surrounding erythema - pink, warm - this area of redness is new Results & Data Results & Data Vital Signs (Past 12 Hours) Vital Signs Temp Pulse Resp BP Pulse Ox O2 Del Method 03/02/23 08:26 Room Air 03/02/23 19:51 Room Air, Trach Collar 03/02/23 19:05 83 18 94 Room Air 03/02/23 15:16 76 18 93 Room Air 03/02/23 14:40 36.6 C 70 16 118/72 94 Room Air 03/02/23 10:50 70 18 96 Room Air Diagnostic Findings Knee X-Ray 01/28/23 13:19 LEFT KNEE 2 VIEWS CLINICAL HISTORY: Left knee pain. FINDINGS: AP and crosstable lateral views of the left knee are compared to study dated 06/20/2020. The skeletal structures are osteopenic. There is no radio graphic evidence of acute fracture. There is moderate to advanced tricompartmental degenerative joint space narrowing, greatest in the medial and patellofemoral compartments. There are marginal osteophytes, patellar enthesophytes, and degenerative beaking of the tibial spine. Calcified joint bodies are noted. There is no significant joint effusion. Soft tissue swelling is seen around the knee, greatest medially. IMPRESSION: 1. Soft tissue swelling with no acute bony abnormality identified. 2. Osteopenia and degenerative change as above. Electronically signed by: Jasper Hancock M.D. 01/28/2023 2:00 PM Venous Doppler Study 01/31/23 14:59 ULTRASOUND RIGHT LOWER EXTREMITY VENOUS CLINICAL HISTORY: Right calf pain. COMPARISON STUDY: Bilateral lower extremity venous ultrasound dated 04/14/2021. TECHNIQUE: Real-time, grayscale, and color Doppler sonography of the deep veins of the right lower extremity was performed from the inguinal crease to the calf. Compression and augmentation were utilized. The examination is degraded by large body habitus. FINDINGS: There is no sonographic evidence of deep venous thrombosis identified in the right lower extremity. The common femoral, superficial femoral, and popliteal veins are patent and normally compressible. The greater saphenous vein and the profunda femoris vein at the junction with the common femoral vein are clear. The visualized calf veins are patent. IMPRESSION: There is no sonographic evidence of deep venous thrombosis identified in the right lower extremity. ACT 112: Negative or not required by law. Electronically signed by: Jasper Hancock M.D. 01/31/2023 3:52 PM Knee X-Ray 03/02/23 07:30 XR knee RT 1 or 2V routine CLINICAL HISTORY: h/o femur fracture; assess healing TECHNIQUE: 2 views of the right knee were obtained. Comparison: Comparison is made to right knee radiographs 11/28/2022 FINDINGS: Limited evaluation due to patient positioning. 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 Bony callus formation is seen. The depression of the lateral tibial plateau is not well seen on this exam. IMPRESSION: Bony callus formation is seen about the nonunited distal femoral fracture with stable to possibly slightly worsened alignment. ACT 112: Negative or not required by law. Electronically signed by: Layo Cutler M.D. 03/02/2023 8:15 AM PG Care Time/CCT Total # of Minutes Spent Total Time Spent with Patient: Total time spent is greater than 50% in coordination of care (as documented) at patient's floor/unit and/or counseling patient: Coding Level of Care Code 08410 SUB INP/OBS CARE 1/25MIN Diagnoses Failure to thrive Diarrhea R19.7 CKD (chronic kidney disease) N18.9 GERD (gastroesophageal reflux disease) K21.9 Insulin-requiring or dependent type II diabetes mellitus E11.9; Z79.4 Chronic diastolic congestive heart failure I50.32 Chronic respiratory failure J96.10 Respiratory failure complication: unspecified whether with hypoxia or hypercapnia Dyslipidemia E78.5 Left knee pain M25.562 Physical deconditioning R53.81 Anemia D64.9 Fracture of distal end of right femur S72.401A Morbid obesity with BMI of 60.0-69.9, adult E66.01; Z68.44 (7) Chronic respiratory failure Respiratory failure complication: unspecified whether with hypoxia or hypercapnia Qualified Code(s): J96.10 - Chronic respiratory failure, unspecified whether with hypoxia or hypercapnia
[2023-03-02] MEDS: ATORVASTATIN 40 MG TAB PO SCH (20:59)
[2023-03-02] MEDS: MELATONIN 3 MG TAB PO SCH (20:59)
[2023-03-03] MEDS: LEVOTHYROXINE SODIUM 75 MCG TABLET PO SCH (06:22)
[2023-03-03] MEDS: PANTOprazole 40 MG TAB PO SCH (06:22)
[2023-03-03] MEDS: TORSEMIDE 10 MG TAB PO SCH ×2 (06:23→15:40)
[2023-03-03] MEDS: Albuterol HFA 8 GM Inhaler (Combivent Respimat P&T Subs) INH SCH ×4 (07:22→20:37)
[2023-03-03] MEDS: Ipratropium HFA Inhaler (Combivent Respimat P&T Subs) INH SCH ×4 (07:22→20:37)
[2023-03-03 08:08] LABS: Creatinine Clr Calc Pharmacy 61.5 ml/min; Est GFR (African American) 49.1 ml/min; Est GFR (Non-African American) 42.3 ml/min
[2023-03-03] MEDS: INSULIN, Rapid-Acting PUMP SCH ×4 (09:33→21:04)
[2023-03-03] MEDS: TOPIRAMATE 100 MG TAB PO SCH (09:34)
[2023-03-03] MEDS: SERTRALINE HCL 50 MG TABLET PO SCH (09:34)
[2023-03-03] MEDS: buPROPion SR 100 MG TABCR PO SCH ×2 (09:34→20:56)
[2023-03-03] MEDS: ISOSORBIDE MONO EXTENDED REL 30 MG TABCR PO SCH (09:35)
[2023-03-03] MEDS: ENOXAPARIN INJ 40 MG/0.4 ML SYR SQ SCH ×2 (09:35→21:02)
[2023-03-03] MEDS: FOLIC ACID 1 MG TAB PO SCH (09:35)
[2023-03-03] MEDS: MAGNESIUM OXIDE 400 MG TAB PO SCH (09:35)
[2023-03-03] MEDS: POTASSIUM CHLORIDE CRTAB 20 MEQ TABCR PO SCH ×2 (09:35→20:57)
[2023-03-03] MEDS: SPIRONOLACTONE 25 MG TAB PO SCH (09:35)
[2023-03-03] MEDS: METOPROLOL TARTRATE 25 MG TAB PO SCH ×2 (09:35→20:58)
[2023-03-03] MEDS: ASPIRIN 81 MG ECTAB PO SCH (09:35)
[2023-03-03] MEDS: DICLOFENAC SOD 1% GEL 100 GM TUBE EXT SCH ×4 (09:36→21:03)
[2023-03-03] MEDS: ACETAMINOPHEN 500 MG TAB PO SCH ×2 (13:27→20:56)
[2023-03-03] MEDS: MELATONIN 3 MG TAB PO SCH (20:56)
[2023-03-03] MEDS: ATORVASTATIN 40 MG TAB PO SCH (20:57)
[2023-03-03] MEDS: MUPIROCIN 2% OINT 22 GM TUBE EXT SCH (21:03)
--- NOTE | 2023-03-03 21:24 | Hospitalist Progress Note ---
Date of Service March 03, 2023 Assessment & Plan (1) Failure to thrive: Plan: Multiple falls at home prompted the patient to be readmitted on 01/24/23. Previous to that she had had a prolonged, several month stay trying to secure SNF placement. She ultimately ended up at home with numerous services in place - but, again, did poorly over her brief time at home including multiple falls. Case management working on SNF placement. Metal trach and morbid obesity are barriers to SNF placement, however. Appreciate SW efforts. I agree with social work that going home is VERY UNSAFE and I do not recommend such. She has already demonstrated that going home - even though she had caregivers previously - was challenging and not safe. (2) Diarrhea: Plan: resolved recent c diff negative (3) CKD (chronic kidney disease): Plan: stage 4 stable bmps while here (4) GERD (gastroesophageal reflux disease): Plan: cont PPI (5) Insulin-requiring or dependent type II diabetes mellitus: Plan: Continue home insulin pump. EXCELLENT control on pump. BSGs all <200. last a1c 7.2% in 10/2022. check another while here. (6) Chronic diastolic congestive heart failure: Plan: compensated. Continue torsemide twice daily, spironolactone, metoprolol BID. (7) Chronic respiratory failure: Plan: Stable . uses HS O2 via trach. She declines consideration of transition from metal trach to plastic trach. Continue azithro 250 mg MWF - will reorder QTc on EKG about 1 month ago was <450msec no further bloody sputum (8) Dyslipidemia: Plan: Continue home statin (9) Left knee pain: Plan: Continue oxycodone as needed for pain. X-rays negative for fracture. Continue physical therapy (10) Physical deconditioning: Plan: PT/OT needs SNF placement (11) Anemia: Plan: mild, normocytic anemia continue folic acid supplement (12) Fracture of distal end of right femur: Plan: repeat x-rays of right femur/knee with no major changes since the last imaging cont pain meds prn schedule tylenol 1gm TID cont voltaren gel qid (13) Morbid obesity with BMI of 60.0-69.9, adult: Plan: BMI ~60 Plan appreciate social work assistance for SNF placement left harrell erythema - inflammatory, not cellulitis as it is improved without any specific Rx. apply bactroban BID to the abrasions. Admission and Anticipated Discharge Date Admission Date: January 24, 2023 Subjective no issues overnight feels good less despondent today left leg redness is better right knee pain is unchanged eating well moving bowels wanted to go outside today but appropriate wheelchair couldn't be found Review of Systems Review of Systems: gen - feels well cv - no chest symptoms pulm - mild cough - chronic, no change; sputum color and quantity - chronic, no changes Physical Exam Physical Exam: gen - NAD, laying in bed, obese mouth - MMM neck - metal trach in place heart - RRR, s1 s2, no murmur lungs - CTA b/l abd - soft obese NT BS+ ND ext - right knee is in chronically flexed position and the leg is shorter than the left leg; no peripheral edema, pulses 2+ b/l skin - abrasions left anterior harrell with resolving erythema; redness has retreated from my previously placed demarkation lines Results & Data Results & Data Vital Signs (Past 12 Hours) Vital Signs Temp Pulse Resp BP Pulse Ox O2 Del Method 03/03/23 20:37 88 24 93 Room Air 03/03/23 15:32 68 18 94 Room Air 03/03/23 14:39 36.6 C 70 16 126/61 95 Room Air 03/03/23 10:35 66 18 95 Room Air PG Care Time/CCT Total # of Minutes Spent Total Time Spent with Patient: Total time spent is greater than 50% in coordination of care (as documented) at patient's floor/unit and/or counseling patient: Coding Level of Care Code 26560 SUB INP/OBS CARE 1/25MIN Diagnoses Failure to thrive Diarrhea R19.7 CKD (chronic kidney disease) N18.9 GERD (gastroesophageal reflux disease) K21.9 Insulin-requiring or dependent type II diabetes mellitus E11.9; Z79.4 Chronic diastolic congestive heart failure I50.32 Chronic respiratory failure J96.10 Respiratory failure complication: unspecified whether with hypoxia or hypercapnia Dyslipidemia E78.5 Left knee pain M25.562 Physical deconditioning R53.81 Anemia D64.9 Fracture of distal end of right femur S72.401A Morbid obesity with BMI of 60.0-69.9, adult E66.01; Z68.44 (7) Chronic respiratory failure Respiratory failure complication: unspecified whether with hypoxia or hypercapnia Qualified Code(s): J96.10 - Chronic respiratory failure, unspecified whether with hypoxia or hypercapnia
[2023-03-04] MEDS: PANTOprazole 40 MG TAB PO SCH (05:53)
[2023-03-04] MEDS: LEVOTHYROXINE SODIUM 75 MCG TABLET PO SCH (05:53)
[2023-03-04] MEDS: TORSEMIDE 10 MG TAB PO SCH ×2 (05:56→13:34)
[2023-03-04] MEDS: ASPIRIN 81 MG ECTAB PO SCH (07:55)
[2023-03-04] MEDS: buPROPion SR 100 MG TABCR PO SCH ×2 (07:55→21:09)
[2023-03-04] MEDS: ISOSORBIDE MONO EXTENDED REL 30 MG TABCR PO SCH (07:55)
[2023-03-04] MEDS: FOLIC ACID 1 MG TAB PO SCH (07:55)
[2023-03-04] MEDS: SPIRONOLACTONE 25 MG TAB PO SCH (07:55)
[2023-03-04] MEDS: MAGNESIUM OXIDE 400 MG TAB PO SCH (07:55)
[2023-03-04] MEDS: AZITHROMYCIN 250 MG TAB PO SCH (07:56)
[2023-03-04] MEDS: ENOXAPARIN INJ 40 MG/0.4 ML SYR SQ SCH ×2 (07:56→21:10)
[2023-03-04] MEDS: TOPIRAMATE 100 MG TAB PO SCH (07:56)
[2023-03-04] MEDS: ACETAMINOPHEN 500 MG TAB PO SCH ×3 (07:56→21:08)
[2023-03-04] MEDS: METOPROLOL TARTRATE 25 MG TAB PO SCH ×2 (07:56→21:11)
[2023-03-04] MEDS: MUPIROCIN 2% OINT 22 GM TUBE EXT SCH ×2 (07:57→21:12)
[2023-03-04] MEDS: SERTRALINE HCL 50 MG TABLET PO SCH (07:57)
[2023-03-04] MEDS: POTASSIUM CHLORIDE CRTAB 20 MEQ TABCR PO SCH ×2 (07:57→21:13)
[2023-03-04] MEDS: DICLOFENAC SOD 1% GEL 100 GM TUBE EXT SCH ×4 (07:57→21:10)
[2023-03-04] MEDS: Ipratropium HFA Inhaler (Combivent Respimat P&T Subs) INH SCH ×4 (07:58→20:16)
[2023-03-04] MEDS: Albuterol HFA 8 GM Inhaler (Combivent Respimat P&T Subs) INH SCH ×4 (07:58→20:16)
[2023-03-04] MEDS: INSULIN, Rapid-Acting PUMP SCH ×4 (09:00→21:13)
[2023-03-04] MEDS: ATORVASTATIN 40 MG TAB PO SCH (21:09)
[2023-03-04] MEDS: MELATONIN 3 MG TAB PO SCH (21:11)
--- NOTE | 2023-03-04 22:44 | Hospitalist Progress Note ---
Date of Service March 04, 2023 Assessment & Plan (1) Failure to thrive: Plan: Multiple falls at home prompted the patient to be readmitted on 01/24/23. Previous to that she had had a prolonged, several month stay trying to secure SNF placement. She ultimately ended up at home with numerous services in place - but, again, did poorly over her brief time at home including multiple falls. Case management working on SNF placement. Metal trach and morbid obesity are barriers to SNF placement, however. Appreciate SW efforts. I agree with social work that going home is VERY UNSAFE and I do not recommend such. She has already demonstrated that going home - even though she had caregivers previously - was challenging and not safe. (2) Diarrhea: Plan: resolved recent c diff negative (3) CKD (chronic kidney disease): Plan: stage 4 stable bmps while here (4) GERD (gastroesophageal reflux disease): Plan: cont PPI (5) Insulin-requiring or dependent type II diabetes mellitus: Plan: Continue home insulin pump. EXCELLENT control on pump. BSGs all <200 (except for today after eating sweets). last a1c 7.2% in 10/2022. (6) Chronic diastolic congestive heart failure: Plan: compensated. Continue torsemide twice daily, spironolactone, metoprolol BID. (7) Chronic respiratory failure: Plan: stable, no issues. uses HS O2 via trach. She declines consideration of transition from metal trach to plastic trach. Continue azithro 250 mg MWF QTc on EKG about 1 month ago was <450msec bloody sputum has resolved (8) Dyslipidemia: Plan: Continue home statin (9) Left knee pain: Plan: Continue oxycodone as needed for pain. X-rays negative for fracture. Continue physical therapy (10) Physical deconditioning: Plan: PT/OT needs SNF placement (11) Anemia: Plan: mild, normocytic anemia can stop folate - last level 02/18 was normal last Hb just shy of 12 on 02/18 repeat next 48 hours for stability (12) Fracture of distal end of right femur: Plan: repeat x-rays 03/02/23 of right femur/knee with no major changes since the last imaging cont pain meds prn schedule tylenol 1gm TID cont voltaren gel qid (13) Morbid obesity with BMI of 60.0-69.9, adult: Plan: BMI ~60 Plan appreciate social work assistance for SNF placement left harrell erythema - inflammatory, not cellulitis, as it is improved without any specific Rx. cont bactroban BID to the abrasions. Admission and Anticipated Discharge Date Admission Date: January 24, 2023 Subjective no new issues overnight feels well daughter came for a visit today eating well BSGs normal until she had a sweet that her daughter brought (BSGs spiked after such) Review of Systems Review of Systems: pulm - no change in baseline sputum GI - no abd pain Physical Exam Physical Exam: gen - NAD, laying in bed, obese mouth - MMM neck - metal trach in place - clean, no sputum or drainage heart - RRR, s1 s2, no murmur lungs - CTA b/l abd - soft obese NT BS+ ND ext - no peripheral edema, pulses 2+ b/l skin - abrasions left anterior harrell with resolved erythema; redness has retreated from my previously placed demarkation lines -- no cellulitis Results & Data Results & Data Vital Signs (Past 12 Hours) Vital Signs Temp Pulse Resp BP Pulse Ox O2 Del Method 03/04/23 20:00 Room Air 03/04/23 21:04 82 18 123/71 94 Room Air 03/04/23 20:18 70 18 96 Room Air 03/04/23 15:45 68 18 96 Room Air 03/04/23 15:03 36.6 C 69 18 127/69 95 Room Air 03/04/23 11:41 60 18 95 Room Air Laboratory Results Laboratory Results - last 24 hr 03/04/23 03/04/23 03/04/23 08:09 12:08 17:09 POC Glucose 168 H 173 H 245 H 03/04/23 20:40 POC Glucose 196 H PG Care Time/CCT Total # of Minutes Spent Total Time Spent with Patient: Total time spent is greater than 50% in coordination of care (as documented) at patient's floor/unit and/or counseling patient: Coding Level of Care Code None Diagnoses Failure to thrive Diarrhea R19.7 CKD (chronic kidney disease) N18.9 GERD (gastroesophageal reflux disease) K21.9 Insulin-requiring or dependent type II diabetes mellitus E11.9; Z79.4 Chronic diastolic congestive heart failure I50.32 Chronic respiratory failure J96.10 Respiratory failure complication: unspecified whether with hypoxia or hypercapnia Dyslipidemia E78.5 Left knee pain M25.562 Physical deconditioning R53.81 Anemia D64.9 Fracture of distal end of right femur S72.401A Morbid obesity with BMI of 60.0-69.9, adult E66.01; Z68.44 (7) Chronic respiratory failure Respiratory failure complication: unspecified whether with hypoxia or hypercapnia Qualified Code(s): J96.10 - Chronic respiratory failure, unspecified whether with hypoxia or hypercapnia
[2023-03-05] MEDS: LEVOTHYROXINE SODIUM 75 MCG TABLET PO SCH (06:06)
[2023-03-05] MEDS: PANTOprazole 40 MG TAB PO SCH (06:06)
[2023-03-05] MEDS: TORSEMIDE 10 MG TAB PO SCH ×2 (06:06→13:40)
[2023-03-05] MEDS: Albuterol HFA 8 GM Inhaler (Combivent Respimat P&T Subs) INH SCH ×4 (08:24→19:25)
[2023-03-05] MEDS: Ipratropium HFA Inhaler (Combivent Respimat P&T Subs) INH SCH ×4 (08:24→19:25)
[2023-03-05] MEDS: INSULIN, Rapid-Acting PUMP SCH ×4 (09:35→21:41)
[2023-03-05] MEDS: DICLOFENAC SOD 1% GEL 100 GM TUBE EXT SCH ×4 (09:35→20:45)
[2023-03-05] MEDS: ENOXAPARIN INJ 40 MG/0.4 ML SYR SQ SCH ×2 (09:36→20:46)
[2023-03-05] MEDS: MUPIROCIN 2% OINT 22 GM TUBE EXT SCH ×2 (09:36→20:47)
[2023-03-05] MEDS: MAGNESIUM OXIDE 400 MG TAB PO SCH (09:37)
[2023-03-05] MEDS: ACETAMINOPHEN 500 MG TAB PO SCH ×3 (09:37→20:45)
[2023-03-05] MEDS: SERTRALINE HCL 50 MG TABLET PO SCH (09:37)
[2023-03-05] MEDS: TOPIRAMATE 100 MG TAB PO SCH (09:37)
[2023-03-05] MEDS: METOPROLOL TARTRATE 25 MG TAB PO SCH ×2 (09:38→20:46)
[2023-03-05] MEDS: POTASSIUM CHLORIDE CRTAB 20 MEQ TABCR PO SCH ×2 (09:38→20:47)
[2023-03-05] MEDS: ASPIRIN 81 MG ECTAB PO SCH (09:38)
[2023-03-05] MEDS: ISOSORBIDE MONO EXTENDED REL 30 MG TABCR PO SCH (09:38)
[2023-03-05] MEDS: FOLIC ACID 1 MG TAB PO SCH (09:38)
[2023-03-05] MEDS: SPIRONOLACTONE 25 MG TAB PO SCH (09:39)
[2023-03-05] MEDS: buPROPion SR 100 MG TABCR PO SCH ×2 (09:39→20:45)
[2023-03-05] MEDS: ATORVASTATIN 40 MG TAB PO SCH (20:45)
[2023-03-05] MEDS: MELATONIN 3 MG TAB PO SCH (20:46)
--- NOTE | 2023-03-05 20:48 | Hospitalist Progress Note ---
Date of Service March 05, 2023 Assessment & Plan (1) Ambulatory dysfunction: Plan: 2nd to severe deconditioning, prolonged institutionalization starting in spring 2021 after suffering a right distal femur fracture, morbid obesity, limited weight bearing status to RLE, etc. Cont PT/OT. Needs SNF placement. (2) Physical deconditioning: Plan: PT/OT needs SNF placement (3) Failure to thrive: Plan: Multiple falls at home prompted the patient to be readmitted on 01/24/23. Previous to that she had had a prolonged, several month stay trying to secure SNF placement. She ultimately ended up at home with numerous services in place - but, again, did poorly over her brief time at home including multiple falls. Case management working on SNF placement. Metal trach and morbid obesity are barriers to SNF placement, however. Appreciate SW efforts. I agree with social work that going home is VERY UNSAFE and I do not recommend such. She has already demonstrated that going home - even though she had caregivers previously - was challenging and not safe. (4) Diarrhea: Plan: had resolved but now has returned recent c diff negative on 02/22/23 of diarrhea persists recheck a c diff due to chronic zithromax (for pulmonary prophylaxis) and prolonged hospitalization (5) CKD (chronic kidney disease): Plan: stage 4 stable bmps while here (6) GERD (gastroesophageal reflux disease): Plan: cont PPI (7) Insulin-requiring or dependent type II diabetes mellitus: Plan: Continue home insulin pump. EXCELLENT control on pump. Most BSGs all <200 (just occasional highs). last a1c 7.2% in 10/2022. (8) Chronic diastolic congestive heart failure: Plan: compensated. Continue torsemide twice daily, spironolactone, metoprolol BID. most recent BMP wnl. (9) Chronic respiratory failure: Plan: stable, no issues. uses HS O2 via trach. She declines consideration of transition from metal trach to plastic trach. Continue azithro 250 mg MWF QTc on EKG about 1 month ago was <450msec bloody sputum she had earlier this week now resolved (10) Dyslipidemia: Plan: Continue home statin (11) Left knee pain: Plan: Continue oxycodone as needed for pain. X-rays negative for fracture. Continue physical therapy (12) Anemia: Plan: mild, normocytic anemia can stop folate - last level 02/18 was normal last Hb just shy of 12 on 02/18 repeat next 48 hours for stability (13) Fracture of distal end of right femur: Plan: initial fracture was March 2022 transferred to [facility] for such - nonoperative management advised has essentially been non weight-bearing on the RLE since then which has led to significant morbidity and #1 above repeat x-rays 03/02/23 of right femur/knee with no major changes since the last imaging cont pain meds prn schedule tylenol 1gm TID cont voltaren gel qid (14) Morbid obesity with BMI of 60.0-69.9, adult: Plan: BMI ~60 (15) Lesion of left [place] kidney: Plan: 03/25/22 CT of femur showed the following -- "Partially imaged 2.7 cm left renal lesion is new from 2006. This could be correlated with a follow-up ultrasound to exclude renal cell carcinoma." Will discuss with patient and ask if she wants to pursue additional imaging. Plan appreciate social work assistance for SNF placement left harrell erythema - inflammatory, not cellulitis, as it is improved without any specific Rx. cont bactroban BID to the abrasions. Admission and Anticipated Discharge Date Admission Date: January 24, 2023 Subjective patient reports having 2 episodes of diarrhea today despite such no abd pain no nausea or emesis eating well BSGs nearly all <200 she had a negative c diff test about 7-10 days ago for diarrhea then no fevers no dyspnea Review of Systems Review of Systems: gen - no fevers, chills cv - no chest pain pulm - no change in baseline sputum; no dyspnea at rest; no wheezing GI - no nausea/emesis - no LUTs Physical Exam Physical Exam: gen - NAD, laying in bed, obese, looks well mouth - MMM neck - metal trach in place - clean, no sputum or drainage heart - RRR, s1 s2, no murmur; heart tones distant/difficult to hear lungs - CTA b/l; no wheezes or rales today abd - soft obese NT BS+ ND ext - no peripheral edema, pulses 2+ b/l skin - abrasions left anterior harrell have scabbed over; resolved erythema; redness has retreated from my previously placed demarkation lines -- no cellulitis Results & Data Results & Data Vital Signs (Past 12 Hours) Vital Signs Temp Pulse Pulse Resp BP Pulse Ox O2 Del Method 03/05/23 20:44 36.9 C 78 18 119/64 94 Room Air 03/05/23 19:25 76 24 94 03/05/23 15:40 74 18 96 Room Air 03/05/23 14:31 36.7 C 66 20 139/64 95 Room Air 03/05/23 11:21 76 18 95 Room Air 03/05/23 09:34 73 133/73 Laboratory Results Laboratory Results - last 24 hr 03/05/23 03/05/23 03/05/23 08:12 12:11 17:18 POC Glucose 136 H 163 H 151 H PG Care Time/CCT Total # of Minutes Spent Total Time Spent with Patient: Total time spent is greater than 50% in coordination of care (as documented) at patient's floor/unit and/or counseling patient: Coding Level of Care Code 38414 SUB INP/OBS CARE 12/15MIN Diagnoses Ambulatory dysfunction R26.2 Physical deconditioning R53.81 Failure to thrive Diarrhea R19.7 CKD (chronic kidney disease) N18.9 GERD (gastroesophageal reflux disease) K21.9 Insulin-requiring or dependent type II diabetes mellitus E11.9; Z79.4 Chronic diastolic congestive heart failure I50.32 Chronic respiratory failure J96.10 Respiratory failure complication: unspecified whether with hypoxia or hypercapnia Dyslipidemia E78.5 Left knee pain M25.562 Anemia D64.9 Fracture of distal end of right femur S72.401A Morbid obesity with BMI of 60.0-69.9, adult E66.01; Z68.44 Lesion of left [place] kidney N28.9 (9) Chronic respiratory failure Respiratory failure complication: unspecified whether with hypoxia or hyper capnia Qualified Code(s): J96.10 - Chronic respiratory failure, unspecified whether with hypoxia or hypercapnia
[2023-03-06] MEDS: TORSEMIDE 10 MG TAB PO SCH ×2 (06:21→13:42)
[2023-03-06] MEDS: LEVOTHYROXINE SODIUM 75 MCG TABLET PO SCH (06:21)
[2023-03-06] MEDS: PANTOprazole 40 MG TAB PO SCH (06:21)
[2023-03-06 06:40] LABS: Creatinine Clr Calc Pharmacy 59.7 ml/min; Est GFR (African American) 47.3 ml/min; Est GFR (Non-African American) 40.8 ml/min
[2023-03-06] MEDS: Albuterol HFA 8 GM Inhaler (Combivent Respimat P&T Subs) INH SCH ×4 (08:21→20:37)
[2023-03-06] MEDS: Ipratropium HFA Inhaler (Combivent Respimat P&T Subs) INH SCH ×4 (08:21→20:38)
[2023-03-06] MEDS: INSULIN, Rapid-Acting PUMP SCH ×4 (09:35→21:21)
--- NOTE | 2023-03-06 09:35 | Hospitalist Progress Note ---
Date of Service March 06, 2023 Assessment & Plan (1) Failure to thrive: Plan: Multiple falls at home prompted the patient to be readmitted on 01/24/23. Previous to that she had had a prolonged, several month stay trying to secure SNF placement. She ultimately ended up at home with numerous services in place - but, again, did poorly over her brief time at home including multiple falls. Case management working on SNF placement. Metal trach and morbid obesity needing a bariatric bed are challenging for placement Appreciate SW efforts. I agree with social work that going home is VERY UNSAFE and I do not recommend such. She has already demonstrated that going home - even though she had caregivers previously - was challenging and not safe. (2) CKD (chronic kidney disease): Plan: Chronic/stable stage 4 Creatinine 1.35,improved (3) GERD (gastroesophageal reflux disease): Plan: Chronic/stable cont PPI (4) Insulin-requiring or dependent type II diabetes mellitus: Plan: Chronic/stable Continue home insulin pump. EXCELLENT control on pump. Most BSGs all <200 (just occasional highs). last a1c 7.2% in 10/2022. (5) Chronic diastolic congestive heart failure: Plan: Chronic and compensated. Continue torsemide twice daily, spironolactone, metoprolol BID. most recent BMP wnl. (6) Chronic respiratory failure: Plan: chronic and stable, no issues. uses HS O2 via trach. She declines consideration of transition from metal trach to plastic trach. Continue azithro 250 mg MWF QTc on EKG about 1 month ago was <450msec (7) Dyslipidemia: Plan: Continue/stable Continue statin (8) Left knee pain: Plan: Continue oxycodone as needed for pain. X-rays negative for fracture. Continue physical therapy (9) Anemia: Plan: Chronic/stable mild, normocytic anemia can stop folate - last level 02/18 was normal Repeat in AM (10) Fracture of distal end of right femur: Plan: Chronic initial fracture was March 2022 transferred to [facility] for such - nonoperative management advised has essentially been non weight-bearing on the RLE since then which has led to significant morbidity and #1 above repeat x-rays 03/02/23 of right femur/knee with no major changes since the last imaging cont pain meds prn schedule tylenol 1gm TID cont voltaren gel qid (11) Morbid obesity with BMI of 60.0-69.9, adult: Plan: BMI ~60 (12) Ambulatory dysfunction: Plan: Chronic 2nd to severe deconditioning, prolonged institutionalization starting in spring 2021 after suffering a right distal femur fracture, morbid obesity, limited weight bearing status to RLE, etc. Cont PT/OT. Needs SNF placement. (13) Lesion of left [place] kidney: Plan: 03/25/22 CT of femur showed the following -- "Partially imaged 2.7 cm left renal lesion is new from 2006. This could be correlated with a follow-up ultrasound to exclude renal cell carcinoma." Will discuss with patient and ask if she wants to pursue additional imaging. Plan appreciate social work assistance for SNF placement left harrell erythema - inflammatory, not cellulitis, as it is improved without any specific Rx. cont bactroban BID to the abrasions. Admission and Anticipated Discharge Date Admission Date: January 24, 2023 Subjective Patient seen this morning. She was awake in bed in [facility]. She states she had 2 episodes of diarrhea yesterday but no BM thus far today or through the night. She denies any nausea or vomiting. Review of Systems Review of Systems: Patient denies any nausea, vomiting, chest pain, SOB, cough or dyspnea. She denies any further diarrhea or any GI bleeding. Patient has some skin abrasions on her left lower leg secondary to her multiple falls. Physical Exam Constitutional: + morbidly obese, cooperative and comfortable; no acute distress Neck: metal trach in place, clean no drainage Respiratory: normal respiratory effort, lungs clear to auscultation Cardiovascular: RRR, no murmur, no edema Gastrointestinal (Abdomen): Inspection/Auscultation: normal bowel sounds and + significant pannus abdomen is obese, soft and nontender Skin: few abrasions left lower leg, per patient from her previous falls and are improving Results & Data Results & Data Vital Signs (Past 12 Hours) Vital Signs Temp Pulse Pulse Resp BP Pulse Ox O2 Del Method 03/06/23 07:20 Room Air 03/06/23 07:23 36.5 C 63 19 148/80 H 95 Room Air 03/05/23 23:11 68 20 96 Trach Collar O2 Flow Rate FiO2 03/06/23 07:20 03/06/23 07:23 03/05/23 23:11 6 28 Laboratory Results Abnormal lab results 03/05/23 03/05/23 03/06/23 Range/Units 17:18 20:56 05:43 Creatinine 1.35 H (0.6-1.2) mg/dl POC Glucose 151 H 213 H (70-99) mg/dl 03/06/23 03/06/23 Range/Units 08:12 11:46 Creatinine (0.6-1.2) mg/dl POC Glucose 193 H 203 H (70-99) mg/dl PG Care Time/CCT Total # of Minutes Spent Total Time Spent with Patient: Total time spent is greater than 50% in coordination of care (as documented) at patient's floor/unit and/or counseling patient: Coding Level of Care Code 90551 SUB INP/OBS CARE 2/35MIN Diagnoses Failure to thrive CKD (chronic kidney disease) N18.9 GERD (gastroesophageal reflux disease) K21.9 Insulin-requiring or dependent type II diabetes mellitus E11.9; Z79.4 Chronic diastolic congestive heart failure I50.32 Chronic respiratory failure J96.10 Respiratory failure complication: unspecified whether with hypoxia or hypercapnia Dyslipidemia E78.5 Left knee pain M25.562 Anemia D64.9 Fracture of distal end of right femur S72.401A Morbid obesity with BMI of 60.0-69.9, adult E66.01; Z68.44 Ambulatory dysfunction R26.2 Lesion of left [place] kidney N28.9 (6) Chronic respiratory failure Respiratory failure complication: unspecified whether with hypoxia or hypercapnia Qualified Code(s): J96.10 - Chronic respiratory failure, unspecified whether with hypoxia or hypercapnia
[2023-03-06] MEDS: ENOXAPARIN INJ 40 MG/0.4 ML SYR SQ SCH ×2 (09:36→20:19)
[2023-03-06] MEDS: MUPIROCIN 2% OINT 22 GM TUBE EXT SCH ×2 (09:36→20:21)
[2023-03-06] MEDS: SPIRONOLACTONE 25 MG TAB PO SCH (09:36)
[2023-03-06] MEDS: ASPIRIN 81 MG ECTAB PO SCH (09:36)
[2023-03-06] MEDS: DICLOFENAC SOD 1% GEL 100 GM TUBE EXT SCH ×4 (09:36→20:18)
[2023-03-06] MEDS: ISOSORBIDE MONO EXTENDED REL 30 MG TABCR PO SCH (09:37)
[2023-03-06] MEDS: TOPIRAMATE 100 MG TAB PO SCH (09:37)
[2023-03-06] MEDS: SERTRALINE HCL 50 MG TABLET PO SCH (09:37)
[2023-03-06] MEDS: buPROPion SR 100 MG TABCR PO SCH ×2 (09:37→20:18)
[2023-03-06] MEDS: METOPROLOL TARTRATE 25 MG TAB PO SCH ×2 (09:38→20:21)
[2023-03-06] MEDS: POTASSIUM CHLORIDE CRTAB 20 MEQ TABCR PO SCH ×2 (09:38→20:22)
[2023-03-06] MEDS: ACETAMINOPHEN 500 MG TAB PO SCH ×3 (09:38→20:17)
[2023-03-06] MEDS: MAGNESIUM OXIDE 400 MG TAB PO SCH (09:38)
[2023-03-06] MEDS: ATORVASTATIN 40 MG TAB PO SCH (20:17)
[2023-03-06] MEDS: MELATONIN 3 MG TAB PO SCH (20:19)
[2023-03-07] MEDS: LEVOTHYROXINE SODIUM 75 MCG TABLET PO SCH (06:07)
[2023-03-07] MEDS: PANTOprazole 40 MG TAB PO SCH (06:08)
[2023-03-07] MEDS: Albuterol HFA 8 GM Inhaler (Combivent Respimat P&T Subs) INH SCH ×4 (07:24→21:09)
[2023-03-07] MEDS: Ipratropium HFA Inhaler (Combivent Respimat P&T Subs) INH SCH ×4 (07:24→21:08)
[2023-03-07 07:30] LABS: Hematocrit (blood only) 37.9 % (37.0-47.0); Hemoglobin 11.6 g/dl (12.0-16.0); Mean Corpuscular Hemoglobin 26.9 pg (25.0-34.0); Mean Corpuscular Hgb Conc 30.6 g/dL (32.0-36.0); Mean Corpuscular Volume 87.9 fL (80.0-100.0); Mean Platelet Volume 10.3 fL (9.4-12.4); Platelet Count 245 K/uL (130-400); RDW Coefficient of Variation 15.6 % (11.5-14.5); RDW Standard Deviation 49.6 fL (36.4-46.3); Red Blood Count 4.31 M/uL (4.20-5.40); White Blood Count 7.86 K/ul (4.8-10.8)
[2023-03-07] MEDS ORDERED: TORSEMIDE 10 MG TAB PO STA (08:31)
[2023-03-07] MEDS ORDERED: TORSEMIDE 10 MG TAB PO SCH (09:00)
[2023-03-07] MEDS: AZITHROMYCIN 250 MG TAB PO SCH (09:26)
[2023-03-07] MEDS: buPROPion SR 100 MG TABCR PO SCH ×2 (09:26→21:22)
[2023-03-07] MEDS: TOPIRAMATE 100 MG TAB PO SCH (09:26)
[2023-03-07] MEDS: METOPROLOL TARTRATE 25 MG TAB PO SCH ×2 (09:26→21:23)
[2023-03-07] MEDS: SERTRALINE HCL 50 MG TABLET PO SCH (09:26)
[2023-03-07] MEDS: SPIRONOLACTONE 25 MG TAB PO SCH (09:27)
[2023-03-07] MEDS: ISOSORBIDE MONO EXTENDED REL 30 MG TABCR PO SCH (09:27)
[2023-03-07] MEDS: ASPIRIN 81 MG ECTAB PO SCH (09:27)
[2023-03-07] MEDS: MAGNESIUM OXIDE 400 MG TAB PO SCH (09:27)
[2023-03-07] MEDS: ACETAMINOPHEN 500 MG TAB PO SCH ×3 (09:27→21:22)
[2023-03-07] MEDS: DICLOFENAC SOD 1% GEL 100 GM TUBE EXT SCH ×4 (09:28→21:20)
[2023-03-07] MEDS: POTASSIUM CHLORIDE CRTAB 20 MEQ TABCR PO SCH ×2 (09:28→21:23)
[2023-03-07] MEDS: ENOXAPARIN INJ 40 MG/0.4 ML SYR SQ SCH ×2 (09:28→21:21)
[2023-03-07] MEDS: MUPIROCIN 2% OINT 22 GM TUBE EXT SCH ×2 (09:28→21:21)
[2023-03-07] MEDS: INSULIN, Rapid-Acting PUMP SCH ×4 (09:28→21:25)
[2023-03-07 10:01] LABS: BUN Creatinine Ratio 21.8 (10-20); Calcium 9.1 mg/dl (8.6-10.3); Creatinine Clr Calc Pharmacy 54.8 ml/min; Est GFR (African American) 42.7 ml/min; Est GFR (Non-African American) 36.8 ml/min; Potassium 4.4 mmol/L (3.5-5.1)
--- NOTE | 2023-03-07 14:06 | Hospitalist Progress Note ---
Date of Service March 07, 2023 Assessment & Plan (1) Chronic diastolic congestive heart failure: Plan: appears compensated on exam, but she is having increased pulmonary symptoms, weight is up about 7kg, etc. despite cxr results today will give extra dose of PO torsemide tomorrow AM. attempt to get daily weights for a few days. cont spironolactone, metoprolol BID. BMP wnl. (2) Diarrhea: Plan: had resolved but now has returned recent c diff negative on 02/22/23 will repeat a c diff test do not use loperamide unless c diff is negative at risk of cdiff due to chronic zithromax (for pulmonary prophylaxis) and prolonged hospitalization (3) Ambulatory dysfunction: Plan: 2nd to severe deconditioning, prolonged institutionalization starting in spring 2021 after suffering a right distal femur fracture, morbid obesity, limited weight bearing status to RLE, etc. Cont PT/OT. Needs SNF placement. (4) Physical deconditioning: Plan: PT/OT needs SNF placement home is not a safe option for her despite her wishes to do so (5) Failure to thrive: Plan: Multiple falls at home prompted the patient to be readmitted on 01/24/23. Previous to that she had had a prolonged, several month stay trying to secure SNF placement. She ultimately ended up at home with numerous services in place - but, again, did poorly over her brief time at home including multiple falls. Case management working on SNF placement. Metal trach and morbid obesity are barriers to SNF placement, however. Appreciate SW efforts. I agree with social work that going home is VERY UNSAFE and I do not recommend such. She has already demonstrated that going home - even though she had caregivers previously - was challenging and not safe. (6) CKD (chronic kidney disease): Plan: stage 4 stable bmps while here including today's BMP (7) GERD (gastroesophageal reflux disease): Plan: cont PPI (8) Insulin-requiring or dependent type II diabetes mellitus: Plan: Continue home insulin pump. EXCELLENT control on pump. Most BSGs all <200 (just occasional highs). last a1c 7.2% in 10/2022. repeat an a1c with next blood draw in a few days. (9) Chronic respiratory failure: Plan: stable, no issues. uses HS O2 via trach. She declines consideration of transition from metal trach to plastic trach. Continue azithro 250 mg MWF QTc on EKG about 1 month ago was <450msec no further hemoptysis but having some increased pulmonary symptoms - see #1 above (10) Dyslipidemia: Plan: Continue home statin (11) Left knee pain: Plan: Continue oxycodone as needed for pain. X-rays negative for fracture. Continue physical therapy (12) Anemia: Plan: mild, normocytic anemia can stop folate - last level 02/18 was normal last Hb just shy of 12 on 02/18 repeat H/H today stable (13) Fracture of distal end of right femur: Plan: initial fracture was March 2022 transferred to [facility] for such - nonoperative management advised has essentially been non weight-bearing on the RLE since then which has led to significant morbidity and #1 above repeat x-rays 03/02/23 of right femur/knee with no major changes since the last imaging cont pain meds prn schedule tylenol 1gm TID cont voltaren gel qid (14) Morbid obesity with BMI of 60.0-69.9, adult: Plan: BMI 60-65 (15) Lesion of left upper [place] kidney: Plan: 03/25/22 CT of femur showed the following -- "Partially imaged 2.7 cm left renal lesion is new from 2006. This could be correlated with a follow-up ultrasound to exclude renal cell carcinoma." I discussed this with patient today - she will think about whether to repeat a CT. Will discuss w/ her again tomorrow. Plan appreciate social work assistance for SNF placement left harrell erythema resolved. abrasions healing. cont bactroban BID to the abrasions. Admission and Anticipated Discharge Date Admission Date: January 24, 2023 Subjective pt reports 2 episodes of loose stool today also with a bit more cough/wheezing/sputum production despite the above denies dyspnea at rest denies abd pain, nausea, or emesis eating well Review of Systems Review of Systems: gen - no fevers cv - no chest pain; no change in edema pulm - no hemoptysis Physical Exam Physical Exam: gen - NAD, laying in bed, obese, looks well mouth - MMM neck - metal trach in place - clean, no sputum or drainage seen during my visit heart - RRR, s1 s2, no murmur; heart tones distant/difficult to hear lungs - minimal wheezes b/l; no rales; decreased BS bases abd - soft obese NT BS+ ND ext - no peripheral edema, pulses 2+ b/l skin - abrasions left anterior harrell have scabbed over; no cellulitis Results & Data Results & Data Vital Signs (Past 12 Hours) Vital Signs Temp Pulse Pulse Resp BP Pulse Ox O2 Del Method 03/07/23 10:45 67 20 95 Room Air 03/07/23 09:25 74 122/74 03/07/23 07:26 63 20 94 Room Air 03/07/23 07:10 Room Air 03/07/23 07:14 36.6 C 63 18 124/70 96 Room Air Laboratory Results Laboratory Results - last 24 hr 03/06/23 03/06/23 03/07/23 17:04 20:51 06:27 WBC 7.86 RBC 4.31 Hgb 11.6 L Hct 37.9 MCV 87.9 MCH 26.9 MCHC 30.6 L RDW Std Deviation 49.6 H RDW Coeff of Amee 15.6 H Plt Count 245 MPV 10.3 Sodium Potassium Chloride Carbon Dioxide Anion Gap BUN Creatinine Est Cr Clr Drug Dosing Est GFR ( Amer) Est GFR (Non-Af Amer) BUN/Creatinine Ratio Glucose POC Glucose 194 H 186 H Calcium 03/07/23 03/07/23 03/07/23 06:27 08:16 12:22 WBC RBC Hgb Hct MCV MCH MCHC RDW Std Deviation RDW Coeff of Amee Plt Count MPV Sodium 140 Potassium 4.4 Chloride 108 H Carbon Dioxide 25 Anion Gap 7 BUN 32 H Creatinine 1.47 H Est Cr Clr Drug Dosing 54.8 Est GFR ( Amer) 42.7 Est GFR (Non-Af Amer) 36.8 BUN/Creatinine Ratio 21.8 H Glucose 96 POC Glucose 110 H 147 H Calcium 9.1 Diagnostic Findings Chest X-Ray 03/07/23 14:05 XR chest 1V portable CLINICAL HISTORY: cough, wheezing COMPARISON STUDY: Chest radiograph October 14, 2022. FINDINGS: Tracheostomy tube is in place. Cardiomegaly is unchanged. There is no evidence for pulmonary edema. No consolidation is identified. There is no pneumothorax or pleural effusion. IMPRESSION: No acute cardiopulmonary findings. No significant change in appearance of the chest. Cardiomegaly. ACT 112: Negative or not required by law. Electronically signed by: Toni Ohara M.D. 03/07/2023 2:47 PM PG Care Time/CCT Total # of Minutes Spent Total Time Spent with Patient: Total time spent is greater than 50% in coordination of care (as documented) at patient's floor/unit and/or counseling patient: Coding Level of Care Code 08020 SUB INP/OBS CARE 2/35MIN Diagnoses Chronic diastolic congestive heart failure I50.32 Diarrhea R19.7 Ambulatory dysfunction R26.2 Physical deconditioning R53.81 Failure to thrive CKD (chronic kidney disease) N18.9 GERD (gastroesophageal reflux disease) K21.9 Insulin-requiring or dependent type II diabetes mellitus E11.9; Z79.4 Chronic respiratory failure J96.10 Respiratory failure complication: unspecified whether with hypoxia or hypercapnia Dyslipidemia E78.5 Left knee pain M25.562 Anemia D64.9 Fracture of distal end of right femur S72.401A Morbid obesity with BMI of 60.0-69.9, adult E66.01; Z68.44 Lesion of left upper [place] kidney N28.9 (9) Chronic respiratory failure Respiratory failure complication: unspecified whether with hypoxia or hypercapnia Qualified Code(s): J96.10 - Chronic respiratory failure, unspecified whether with hypoxia or hypercapnia
--- NOTE | 2023-03-07 14:50 | XRay Report ---
XR chest 1V portable CLINICAL HISTORY: cough, wheezing COMPARISON STUDY: Chest radiograph October 14, 2022. FINDINGS: Tracheostomy tube is in place. Cardiomegaly is unchanged. There is no evidence for pulmonar y edema. No consolidation is identified. There is no pneumothorax or pleural effusion. IMPRESSION: No acute cardiopulmonary findings. No significant change in appearance of the chest. Car diomegaly. ACT 112: Negative or not required by law. Electronically signed by: Toni Ohara M.D. 03/07/2023 2:47 PM
[2023-03-07] MEDS: TORSEMIDE 10 MG TAB PO SCH (14:59)
[2023-03-07] MEDS: MELATONIN 3 MG TAB PO SCH (21:22)
[2023-03-07] MEDS: ATORVASTATIN 40 MG TAB PO SCH (21:24)
[2023-03-08] MEDS: LEVOTHYROXINE SODIUM 75 MCG TABLET PO SCH (06:06)
[2023-03-08] MEDS: PANTOprazole 40 MG TAB PO SCH (06:06)
[2023-03-08] MEDS: TORSEMIDE 10 MG TAB PO SCH ×2 (06:07→14:50)
[2023-03-08] MEDS: Albuterol HFA 8 GM Inhaler (Combivent Respimat P&T Subs) INH SCH ×4 (06:58→20:10)
[2023-03-08] MEDS: Ipratropium HFA Inhaler (Combivent Respimat P&T Subs) INH SCH ×4 (06:58→20:10)
[2023-03-08] MEDS: ACETAMINOPHEN 500 MG TAB PO SCH ×3 (08:32→22:56)
[2023-03-08] MEDS: MAGNESIUM OXIDE 400 MG TAB PO SCH (08:32)
[2023-03-08] MEDS: SPIRONOLACTONE 25 MG TAB PO SCH (08:32)
[2023-03-08] MEDS: METOPROLOL TARTRATE 25 MG TAB PO SCH ×2 (08:32→21:07)
[2023-03-08] MEDS: SERTRALINE HCL 50 MG TABLET PO SCH (08:32)
[2023-03-08] MEDS: POTASSIUM CHLORIDE CRTAB 20 MEQ TABCR PO SCH ×2 (08:32→21:03)
[2023-03-08] MEDS: ASPIRIN 81 MG ECTAB PO SCH (08:32)
[2023-03-08] MEDS: ISOSORBIDE MONO EXTENDED REL 30 MG TABCR PO SCH (08:33)
[2023-03-08] MEDS: DICLOFENAC SOD 1% GEL 100 GM TUBE EXT SCH ×4 (08:33→21:03)
[2023-03-08] MEDS: buPROPion SR 100 MG TABCR PO SCH ×2 (08:33→21:04)
[2023-03-08] MEDS: ENOXAPARIN INJ 40 MG/0.4 ML SYR SQ SCH ×2 (08:33→21:03)
[2023-03-08] MEDS: MUPIROCIN 2% OINT 22 GM TUBE EXT SCH ×2 (08:34→21:06)
[2023-03-08] MEDS: TOPIRAMATE 100 MG TAB PO SCH (08:35)
[2023-03-08] MEDS ORDERED: TORSEMIDE 10 MG TAB PO STA (09:03)
[2023-03-08] MEDS: INSULIN, Rapid-Acting PUMP SCH ×4 (09:29→21:17)
--- NOTE | 2023-03-08 19:28 | Hospitalist Progress Note ---
Date of Service March 08, 2023 Assessment & Plan (1) Chronic diastolic congestive heart failure: Plan: I elected to give her a double dose of her AM diuretic; thus, gave 20mg of torsemide this am along with her usual 10mg in the afternoon. cxr yesterday without obvious edema, but weight has been up over the last few weeks. her pulmonary symptoms are improved today. attempt to get daily weights for a few days. cont spironolactone, metoprolol BID. BMP wnl. (2) Diarrhea: Plan: resolved recent c diff negative on 02/22/23 at risk of cdiff due to chronic zithromax (for pulmonary prophylaxis) and p rolonged hospitalization if diarrhea recurs then repeat the c. diff (3) Lesion of left [place] kidney: Plan: 03/25/22 CT of femur showed the following -- "Partially imaged 2.7 cm left renal lesion is new from 2006. This could be correlated with a follow-up ultrasound to exclude renal cell carcinoma." I discussed this with patient today - she does want to pursue a renal u/s. Ordered such for AM of 03/09/23. (4) Ambulatory dysfunction: Plan: 2nd to severe deconditioning, prolonged institutionalization starting in spring 2021 after suffering a right distal femur fracture, morbid obesity, limited weight bearing status to RLE, etc. Cont PT/OT. Needs SNF placement. (5) Physical deconditioning: Plan: PT/OT needs SNF placement home is not a safe option for her despite her wishes to do so (6) Failure to thrive: Plan: Multiple falls at home prompted the patient to be readmitted on 01/24/23. Previous to that she had had a prolonged, several month stay trying to secure SNF placement. She ultimately ended up at home with numerous services in place - but, again, did poorly over her brief time at home including multiple falls. Case management working on SNF placement. Metal trach and morbid obesity are barriers to SNF placement, however. Appreciate SW efforts. I agree with social work that going home is VERY UNSAFE and I do not recommend such. She has already demonstrated that going home - even though she had caregivers previously - was challenging and not safe. (7) CKD (chronic kidney disease): Plan: stage 4 stable bmps while here including yesterday's BMP (8) GERD (gastroesophageal reflux disease): Plan: cont PPI (9) Insulin-requiring or dependent type II diabetes mellitus: Plan: Continue home insulin pump. EXCELLENT control on pump. Most BSGs all <200 (just occasional highs) including today's readings. last a1c 7.2% in 10/2022. repeat an a1c with next blood draw in a few days. (10) Chronic respiratory failure: Plan: stable, no issues. uses HS O2 via trach. She declines consideration of transition from metal trach to plastic trach. Continue azithro 250 mg MWF QTc on EKG about 1 month ago was <450msec no further hemoptysis cxr yesterday stable/unchanged/nothing acute did give small additional dose of torsemide this am due to slow weight gain which could be pulm edema (11) Dyslipidemia: Plan: Continue home statin (12) Left knee pain: Plan: Continue oxycodone as needed for pain. X-rays negative for fracture. Continue physical therapy (13) Anemia: Plan: mild, normocytic anemia can stop folate - last level 02/18 was normal last Hb just shy of 12 on 02/18 repeat H/H 03/07 stable (14) Fracture of distal end of right femur: Plan: initial fracture was March 2022 transferred to [facility] for such - nonoperative management advised has essentially been non weight-bearing on the RLE since then which has led to significant morbidity and #1 above repeat x-rays 03/02/23 of right femur/knee with no major changes since the last imaging cont oxycodone prn cont tylenol 1gm TID cont voltaren gel qid (15) Morbid obesity with BMI of 60.0-69.9, adult: Plan: BMI 60-65 Plan appreciate social work assistance for SNF placement left harrell erythema resolved. abrasions healing. cont bactroban BID to the abrasions. Admission and Anticipated Discharge Date Admission Date: January 24, 2023 Subjective diarrhea resolved -- had a formed stool today breathing issues resolved -- no wheezing, no change in baseline cough, no hemoptysis feels good she DOES want to get renal u/s to r/o RCC of the left kidney (prior imaging study suggested abnormal/complex cyst of L kidney) patient states she was contacted by her outpatient social media assistant today that the social media assistant found an agency to provide home care for her daughter and her self? Review of Systems Review of Systems: gen - eating well, feels good cv - no cp pulm - no dyspnea at rest GI - no abd pain or nausea Physical Exam Physical Exam: gen - NAD, laying in bed, obese, looks well ; watching TV mouth - MMM neck - metal trach in place - clean, no sputum or drainage seen during my visit heart - RRR, s1 s2, no murmur; heart tones distant as usual lungs - CTA b/l today abd - soft obese NT BS+ ND ext - no peripheral edema, pulses 2+ b/l skin - abrasions left anterior harrell have scabbed over Results & Data Results & Data Vital Signs (Past 12 Hours) Vital Signs Temp Pulse Pulse Resp BP Pulse Ox O2 Del Method 03/08/23 15:44 36.9 C 76 18 110/66 95 Room Air 03/08/23 15:41 70 20 94 Room Air 03/08/23 11:13 62 18 96 Room Air 03/08/23 07:36 Room Air Laboratory Results Laboratory Results - last 24 hr 03/07/23 03/08/23 03/08/23 20:57 08:06 12:11 POC Glucose 141 H 123 H 123 H 03/08/23 17:18 POC Glucose 137 H PG Care Time/CCT Total # of Minutes Spent Total Time Spent with Patient: Total time spent is greater than 50% in coordination of care (as documented) at patient's floor/unit and/or counseling patient: Coding Level of Care Code 76771 SUB INP/OBS CARE 12/15MIN Diagnoses Chronic diastolic congestive heart failure I50.32 Diarrhea R19.7 Lesion of left [place] kidney N28.9 Ambulatory dysfunction R26.2 Physical deconditioning R53.81 Failure to thrive CKD (chronic kidney disease) N18.9 GERD (gastroesophageal reflux disease) K21.9 Insulin-requiring or dependent type II diabetes mellitus E11.9; Z79.4 Chronic respiratory failure J96.10 Respiratory failure complication: unspecified whether with hypoxia or hypercapnia Dyslipidemia E78.5 Left knee pain M25.562 Anemia D64.9 Fracture of distal end of right femur S72.401A Morbid obesity with BMI of 60.0-69.9, adult E66.01; Z68.44 (10) Chronic respiratory failure Respiratory failure complication: unspecified whether with hypoxia or hypercapnia Qualified Code(s): J96.10 - Chronic respiratory failure, unspecified whether with hypoxia or hypercapnia
[2023-03-08] MEDS: ATORVASTATIN 40 MG TAB PO SCH (21:06)
[2023-03-08] MEDS: MELATONIN 3 MG TAB PO SCH (21:07)
[2023-03-09] MEDS: TORSEMIDE 10 MG TAB PO SCH ×2 (05:43→15:09)
[2023-03-09] MEDS: LEVOTHYROXINE SODIUM 75 MCG TABLET PO SCH (05:43)
[2023-03-09] MEDS: PANTOprazole 40 MG TAB PO SCH (05:43)
[2023-03-09] MEDS: oxyCODONE HCL IR 5 MG TAB (IMMEDIATE RELEASE) PO PRN (05:57)
[2023-03-09] MEDS: Albuterol HFA 8 GM Inhaler (Combivent Respimat P&T Subs) INH SCH ×4 (07:45→20:04)
[2023-03-09] MEDS: Ipratropium HFA Inhaler (Combivent Respimat P&T Subs) INH SCH ×4 (07:45→20:04)
[2023-03-09] MEDS: AZITHROMYCIN 250 MG TAB PO SCH (08:01)
[2023-03-09] MEDS: ASPIRIN 81 MG ECTAB PO SCH (08:01)
[2023-03-09] MEDS: ACETAMINOPHEN 500 MG TAB PO SCH ×3 (08:01→22:45)
[2023-03-09] MEDS: SERTRALINE HCL 50 MG TABLET PO SCH (08:02)
[2023-03-09] MEDS: ISOSORBIDE MONO EXTENDED REL 30 MG TABCR PO SCH (08:02)
[2023-03-09] MEDS: METOPROLOL TARTRATE 25 MG TAB PO SCH ×2 (08:02→22:43)
[2023-03-09] MEDS: MAGNESIUM OXIDE 400 MG TAB PO SCH (08:02)
[2023-03-09] MEDS: TOPIRAMATE 100 MG TAB PO SCH (08:02)
[2023-03-09] MEDS: SPIRONOLACTONE 25 MG TAB PO SCH (08:02)
[2023-03-09] MEDS: POTASSIUM CHLORIDE CRTAB 20 MEQ TABCR PO SCH ×2 (08:02→22:43)
[2023-03-09] MEDS: MUPIROCIN 2% OINT 22 GM TUBE EXT SCH ×2 (08:03→22:41)
[2023-03-09] MEDS: DICLOFENAC SOD 1% GEL 100 GM TUBE EXT SCH ×4 (08:03→22:40)
[2023-03-09] MEDS: buPROPion SR 100 MG TABCR PO SCH ×2 (08:04→22:44)
[2023-03-09] MEDS: ENOXAPARIN INJ 40 MG/0.4 ML SYR SQ SCH ×2 (08:04→22:39)
[2023-03-09 08:56] LABS: Creatinine Clr Calc Pharmacy 53.5 ml/min; Est GFR (Non-African American) 34.5 ml/min
--- NOTE | 2023-03-09 09:05 | Ultrasound Report ---
RENAL ULTRASOUND HISTORY: Follow up study in a patient with a possible left renal lesion. prior CT scan w/ ? L renal lesion COMPARISON: Renal ultrasound 02/02/2022, CT pelvis 03/25/2022, CT study 05/09/2007. FINDINGS: Limited exam secondary to patient body habitus. Right kidney: 10.6 cm. No hydronephrosis. Normal corticomedullary differentiation and cortical thickn ess. Left kidney: 10.9 cm. No hydronephrosis. Hypoechoic exophytic lesion of the lower pole left kidney li aimee correlates with the CT finding and measures 2.5 x 2.2 x 2.3 cm without color flow. Normal cortic omedullary differentiation and cortical thickness. Bladder: Not visualized. IMPRESSION: 1. Limited exam secondary to patient body habitus. 2. Exophytic hypoechoic lesion of the inferior pole left kidney measuring 2.5 cm is suggestive of a p robable cyst. 3. No hydronephrosis. ACT 112: Negative or not required by law. Electronically signed by: Robbie Henderson M.D. 03/09/2023 9:02 AM
[2023-03-09] MEDS: INSULIN, Rapid-Acting PUMP SCH ×4 (10:21→22:46)
--- NOTE | 2023-03-09 16:40 | Hospitalist Progress Note ---
Date of Service March 09, 2023 Assessment & Plan (1) Chronic diastolic congestive heart failure: Plan: Stable. Continue current medical management. Monitor intake and output (2) Diarrhea: Plan: Resolved (3) Lesion of left [place] kidney: Plan: Left renal cyst seen on ultrasound which appears benign. This can be followed up as an outpatient. No intervention necessary at this time (4) Ambulatory dysfunction: Plan: Continue OT and PT (5) Physical deconditioning: Plan: Continue OT and PT (6) Failure to thrive: Plan: Supportive care. Placement pending (7) CKD (chronic kidney disease): Plan: Monitor intake and output. Periodic lab studies (8) GERD (gastroesophageal reflux disease): Plan: Stable. Continue current medical management (9) Insulin-requiring or dependent type II diabetes mellitus: Plan: Stable. Continue current medical management. ADA diet (10) Chronic respiratory failure: Plan: Stable. Continue oxygen use as she does at home. (11) Dyslipidemia: Plan: Stable. Continue current medical management (12) Left knee pain: Plan: She fell at home prior to this admission. Now resolved. No evidence of fracture on x-rays (13) Anemia: Plan: Chronic. No overt GI bleeding. Serial labs (14) Fracture of distal end of right femur: Plan: Supportive care. This is limiting ambulatory capacity. (15) Morbid obesity with BMI of 60.0-69.9, adult: Plan: Recommend significant weight loss Plan Stable overall. Awaiting eventual SNF placement Admission and Anticipated Discharge Date Admission Date: January 24, 2023 Subjective Alert and oriented. We discussed the renal ultrasound results. There is a left renal cyst 2.5 cm which appears benign. This can be followed up as an outpatient. It does not appear to be malignant. No other acute problems Review of Systems Review of Systems: Constitutional-no fever or chills ENT-no blurred vision, no double vision, no epistaxis, no sore throat Respiratory-no cough, no wheezing, no shortness of breath Cardiac-no palpitations, no chest pain, no syncope GI-no nausea, vomiting, diarrhea, melena, hematochezia -no urinary retention, no urinary incontinence, no dysuria, no hematuria Musculoskeletal-no joint pain, no muscle tenderness Skin-no bruising, no rashes, no pruritus Neuro-no isolated weakness, no paresthesia, no weakness Psych-no depression, no anxiety Physical Exam Physical Exam: General-alert and oriented x3, no fevers, no chills. Morbidly obese HEENT-head atraumatic and normocephalic, pupils equal and reactive to light, extraocular muscles intact Neck-no lymphadenopathy or thyromegaly, trachea midline. Permanent metal tracheostomy in place Chest-clear to auscultation percussion. No rales wheezing or rhonchi Cardiac-regular rate and rhythm, normal S1 and S2 Abdomen-normal bowel sounds, nontender, no hepatosplenomegaly Extremities-no cyanosis, clubbing, or edema Neuro-cranial nerves II through XII intact, motor and sensory function within normal limits, strength symmetrical , no focal deficits Psych-normal affect, normal mood Results & Data Results & Data Vital Signs (Past 12 Hours) Vital Signs Temp Pulse Resp BP Pulse Ox O2 Del Method 03/09/23 15:25 70 18 94 Room Air 03/09/23 15:08 36.9 C 75 20 131/68 94 Room Air 03/09/23 11:01 56 L 18 93 Room Air 03/09/23 10:55 Room Air 03/09/23 07:46 67 20 95 Room Air 03/09/23 07:26 36.7 C 63 18 123/77 94 Room Air Laboratory Results 03/07/23 06:27 03/09/23 07:59 PG Care Time/CCT Total # of Minutes Spent Total Time Spent with Patient: Total time spent is greater than 50% in coordination of care (as documented) at patient's floor/unit and/or counseling patient: Coding Level of Care Code 29992 SUB INP/OBS CARE 3/50MIN Diagnoses Chronic diastolic congestive heart failure I50.32 Diarrhea R19.7 Lesion of left [place] kidney N28.9 Ambulatory dysfunction R26.2 Physical deconditioning R53.81 Failure to thrive CKD (chronic kidney disease) N18.9 GERD (gastroesophageal reflux disease) K21.9 Insulin-requiring or dependent type II diabetes mellitus E11.9; Z79.4 Chronic respiratory failure J96.10 Respiratory failure complication: unspecified whether with hypoxia or hypercapnia Dyslipidemia E78.5 Left knee pain M25.562 Anemia D64.9 Fracture of distal end of right femur S72.401A Morbid obesity with BMI of 60.0-69.9, adult E66.01; Z68.44 (10) Chronic respiratory failure Respiratory failure complication: unspecified whether with hypoxia or hypercapnia Qualified Code(s): J96.10 - Chronic respiratory failure, unspecified whether with hypoxia or hypercapnia
[2023-03-09] MEDS: MELATONIN 3 MG TAB PO SCH (22:44)
[2023-03-09] MEDS: ATORVASTATIN 40 MG TAB PO SCH (22:45)
[2023-03-10] MEDS: LEVOTHYROXINE SODIUM 75 MCG TABLET PO SCH (06:24)
[2023-03-10] MEDS: PANTOprazole 40 MG TAB PO SCH (06:25)
[2023-03-10] MEDS: TORSEMIDE 10 MG TAB PO SCH ×2 (06:25→13:28)
[2023-03-10] MEDS: Ipratropium HFA Inhaler (Combivent Respimat P&T Subs) INH SCH ×4 (07:29→19:45)
[2023-03-10] MEDS: Albuterol HFA 8 GM Inhaler (Combivent Respimat P&T Subs) INH SCH ×4 (07:29→19:44)
[2023-03-10] MEDS: METOPROLOL TARTRATE 25 MG TAB PO SCH ×2 (08:29→21:50)
[2023-03-10] MEDS: POTASSIUM CHLORIDE CRTAB 20 MEQ TABCR PO SCH ×2 (08:29→21:51)
[2023-03-10] MEDS: ACETAMINOPHEN 500 MG TAB PO SCH ×3 (08:29→21:47)
[2023-03-10] MEDS: ASPIRIN 81 MG ECTAB PO SCH (08:30)
[2023-03-10] MEDS: TOPIRAMATE 100 MG TAB PO SCH (08:30)
[2023-03-10] MEDS: ISOSORBIDE MONO EXTENDED REL 30 MG TABCR PO SCH (08:30)
[2023-03-10] MEDS: buPROPion SR 100 MG TABCR PO SCH ×2 (08:30→21:48)
[2023-03-10] MEDS: MAGNESIUM OXIDE 400 MG TAB PO SCH (08:30)
[2023-03-10] MEDS: SERTRALINE HCL 50 MG TABLET PO SCH (08:30)
[2023-03-10] MEDS: ENOXAPARIN INJ 40 MG/0.4 ML SYR SQ SCH ×2 (08:31→21:49)
[2023-03-10] MEDS: SPIRONOLACTONE 25 MG TAB PO SCH (08:31)
[2023-03-10] MEDS: DICLOFENAC SOD 1% GEL 100 GM TUBE EXT SCH ×4 (08:31→21:49)
[2023-03-10] MEDS: MUPIROCIN 2% OINT 22 GM TUBE EXT SCH ×2 (08:32→21:51)
[2023-03-10] MEDS: INSULIN, Rapid-Acting PUMP SCH ×4 (09:55→21:51)
--- NOTE | 2023-03-10 11:49 | Hospitalist Progress Note ---
Date of Service March 10, 2023 Assessment & Plan (1) Chronic diastolic congestive heart failure: Plan: Stable. Continue current medical management. Monitor intake and output (2) Diarrhea: Plan: Resolved (3) Lesion of left [place] kidney: Plan: Left renal cyst seen on ultrasound which appears benign. This can be followed up as an outpatient. No intervention necessary at this time (4) Ambulatory dysfunction: Plan: Continue OT and PT (5) Physical deconditioning: Plan: Continue OT and PT (6) Failure to thrive: Plan: Supportive care. Placement pending (7) CKD (chronic kidney disease): Plan: Monitor intake and output. Periodic lab studies (8) GERD (gastroesophageal reflux disease): Plan: Stable. Continue current medical management (9) Insulin-requiring or dependent type II diabetes mellitus: Plan: Stable. Continue current medical management. ADA diet (10) Chronic respiratory failure: Plan: Stable. Continue oxygen use as she does at home. (11) Dyslipidemia: Plan: Stable. Continue current medical management (12) Left knee pain: Plan: She fell at home prior to this admission. Now resolved. No evidence of fracture on x-rays (13) Anemia: Plan: Chronic. No overt GI bleeding. Serial labs (14) Fracture of distal end of right femur: Plan: Supportive care. This is limiting ambulatory capacity. (15) Morbid obesity with BMI of 60.0-69.9, adult: Plan: Recommend significant weight loss Plan Stable overall. Awaiting eventual SNF placement Admission and Anticipated Discharge Date Admission Date: January 24, 2023 Subjective Alert and oriented. Stable vital signs. She is on room air. Glucose 106 Review of Systems Review of Systems: Constitutional-no fever or chills ENT-no blurred vision, no double vision, no epistaxis, no sore throat Respiratory-no cough, no wheezing, no shortness of breath Cardiac-no palpitations, no chest pain, no syncope GI-no nausea, vomiting, diarrhea, melena, hematochezia -no urinary retention, no urinary incontinence, no dysuria, no hematuria Musculoskeletal-no joint pain, no muscle tenderness Skin-no bruising, no rashes, no pruritus Neuro-no isolated weakness, no paresthesia, no weakness Psych-no depression, no anxiety Physical Exam Physical Exam: General-alert and oriented x3, no fevers, no chills. Morbidly obese HEENT-head atraumatic and normocephalic, pupils equal and reactive to light, e xtraocular muscles intact Neck-no lymphadenopathy or thyromegaly, trachea midline. Permanent metal tracheostomy in place Chest-clear to auscultation percussion. No rales wheezing or rhonchi Cardiac-regular rate and rhythm, normal S1 and S2 Abdomen-normal bowel sounds, nontender, no hepatosplenomegaly Extremities-no cyanosis, clubbing, or edema Neuro-cranial nerves II through XII intact, motor and sensory function within normal limits, strength symmetrical , no focal deficits Psych-normal affect, normal mood Results & Data Results & Data Vital Signs (Past 12 Hours) Vital Signs Temp Pulse Resp BP Pulse Ox O2 Del Method FiO2 03/10/23 11:12 62 16 96 Room Air 03/10/23 09:00 Room Air 03/10/23 08:01 36.7 C 71 18 152/81 H 95 Room Air 03/10/23 07:29 67 18 96 Room Air 21 03/10/23 01:06 Trach Collar Laboratory Results 03/07/23 06:27 03/09/23 07:59 PG Care Time/CCT Total # of Minutes Spent Total Time Spent with Patient: Total time spent is greater than 50% in coordination of care (as documented) at patient's floor/unit and/or counseling patient: Coding Level of Care Code 10433 SUB INP/OBS CARE 2/35MIN Diagnoses Chronic diastolic congestive heart failure I50.32 Diarrhea R19.7 Lesion of left [place] kidney N28.9 Ambulatory dysfunction R26.2 Physical deconditioning R53.81 Failure to thrive CKD (chronic kidney disease) N18.9 GERD (gastroesophageal reflux disease) K21.9 Insulin-requiring or dependent type II diabetes mellitus E11.9; Z79.4 Chronic respiratory failure J96.10 Respiratory failure complication: unspecified whether with hypoxia or hypercapnia Dyslipidemia E78.5 Left knee pain M25.562 Anemia D64.9 Fracture of distal end of right femur S72.401A Morbid obesity with BMI of 60.0-69.9, adult E66.01; Z68.44 (10) Chronic respiratory failure Respiratory failure complication: unspecified whether with hypoxia or hypercapnia Qualified Code(s): J96.10 - Chronic respiratory failure, unspecified whether with hypoxia or hypercapnia
[2023-03-10] MEDS: ATORVASTATIN 40 MG TAB PO SCH (21:48)
[2023-03-10] MEDS: MELATONIN 3 MG TAB PO SCH (21:49)
[2023-03-10] MEDS ORDERED: ALUMINUM/MAGNESIUM SUSP 30 ML UDC PO STA (23:19)
[2023-03-11] MEDS: oxyCODONE HCL IR 5 MG TAB (IMMEDIATE RELEASE) PO PRN (00:37)
[2023-03-11] MEDS: TORSEMIDE 10 MG TAB PO SCH ×2 (06:12→14:36)
[2023-03-11] MEDS: PANTOprazole 40 MG TAB PO SCH (06:12)
[2023-03-11] MEDS: LEVOTHYROXINE SODIUM 75 MCG TABLET PO SCH (06:12)
[2023-03-11] MEDS: Ipratropium HFA Inhaler (Combivent Respimat P&T Subs) INH SCH ×4 (08:00→20:01)
[2023-03-11] MEDS: Albuterol HFA 8 GM Inhaler (Combivent Respimat P&T Subs) INH SCH ×4 (08:00→20:05)
[2023-03-11] MEDS: buPROPion SR 100 MG TABCR PO SCH ×2 (08:39→21:26)
[2023-03-11] MEDS: METOPROLOL TARTRATE 25 MG TAB PO SCH ×2 (08:39→21:28)
[2023-03-11] MEDS: SPIRONOLACTONE 25 MG TAB PO SCH (08:39)
[2023-03-11] MEDS: ASPIRIN 81 MG ECTAB PO SCH (08:39)
[2023-03-11] MEDS: POTASSIUM CHLORIDE CRTAB 20 MEQ TABCR PO SCH ×2 (08:39→21:30)
[2023-03-11] MEDS: TOPIRAMATE 100 MG TAB PO SCH (08:39)
[2023-03-11] MEDS: AZITHROMYCIN 250 MG TAB PO SCH (08:39)
[2023-03-11] MEDS: SERTRALINE HCL 50 MG TABLET PO SCH (08:39)
[2023-03-11] MEDS: ISOSORBIDE MONO EXTENDED REL 30 MG TABCR PO SCH (08:39)
[2023-03-11] MEDS: DICLOFENAC SOD 1% GEL 100 GM TUBE EXT SCH ×4 (08:40→21:27)
[2023-03-11] MEDS: ENOXAPARIN INJ 40 MG/0.4 ML SYR SQ SCH ×2 (08:40→21:27)
[2023-03-11] MEDS: ACETAMINOPHEN 500 MG TAB PO SCH ×3 (08:40→21:26)
[2023-03-11] MEDS: MUPIROCIN 2% OINT 22 GM TUBE EXT SCH ×2 (08:41→21:30)
[2023-03-11] MEDS: MAGNESIUM OXIDE 400 MG TAB PO SCH (08:41)
[2023-03-11] MEDS: INSULIN, Rapid-Acting PUMP SCH ×4 (09:33→21:30)
--- NOTE | 2023-03-11 14:17 | Hospitalist Progress Note ---
Date of Service March 11, 2023 Assessment & Plan (1) Chronic diastolic congestive heart failure: Plan: Stable. Continue current medical management. Monitor intake and output (2) Diarrhea: Plan: Resolved (3) Lesion of left [place] kidney: Plan: Left renal cyst seen on ultrasound which appears benign. This can be followed up as an outpatient. No intervention necessary at this time (4) Ambulatory dysfunction: Plan: Continue OT and PT (5) Physical deconditioning: Plan: Continue OT and PT (6) Failure to thrive: Plan: Supportive care. Placement pending (7) CKD (chronic kidney disease): Plan: Monitor intake and output. Periodic lab studies (8) GERD (gastroesophageal reflux disease): Plan: Stable. Continue current medical management (9) Insulin-requiring or dependent type II diabetes mellitus: Plan: Stable. Continue current medical management. ADA diet (10) Chronic respiratory failure: Plan: Stable. Continue oxygen use as she does at home. (11) Dyslipidemia: Plan: Stable. Continue current medical management (12) Left knee pain: Plan: She fell at home prior to this admission. Now resolved. No evidence of fracture on x-rays (13) Anemia: Plan: Chronic. No overt GI bleeding. Serial labs (14) Fracture of distal end of right femur: Plan: Supportive care. This is limiting ambulatory capacity. (15) Morbid obesity with BMI of 60.0-69.9, adult: Plan: Recommend significant weight loss Plan Stable overall. Anticipate discharge to home once the lift chair is delivered. Home caregivers have been arranged Admission and Anticipated Discharge Date Admission Date: January 24, 2023 Subjective Alert and oriented. Family and ophthalmic medical technologist are present. It appears that home caregivers are lined up. When the lift chair is delivered she should be able to be discharged back to home Review of Systems Review of Systems: Constitutional-no fever or chills ENT-no blurred vision, no double vision, no epistaxis, no sore throat Respiratory-no cough, no wheezing, no shortness of breath Cardiac-no palpitations, no chest pain, no syncope GI-no nausea, vomiting, diarrhea, melena, hematochezia -no urinary retention, no urinary incontinence, no dysuria, no hematuria Musculoskeletal-no joint pain, no muscle tenderness Skin-no bruising, no rashes, no pruritus Neuro-no isolated weakness, no paresthesia, no weakness Psych-no depression, no anxiety Physical Exam Physical Exam: General-alert and oriented x3, no fevers, no chills. Morbidly obese HEENT-head atraumatic and normocephalic, pupils equal and reactive to light, extraocular muscles intact Neck-no lymphadenopathy or thyromegaly, trachea midline. Permanent metal tracheostomy in place Chest-clear to auscultation percussion. No rales wheezing or rhonchi Cardiac-regular rate and rhythm, normal S1 and S2 Abdomen-normal bowel sounds, nontender, no hepatosplenomegaly Extremities-no cyanosis, clubbing, or edema Neuro-cranial nerves II through XII intact, motor and sensory function within normal limits, strength symmetrical , no focal deficits Psych-normal affect, normal mood Results & Data Results & Data Vital Signs (Past 12 Hours) Vital Signs Temp Pulse Pulse Resp BP Pulse Ox O2 Del Method 03/11/23 11:26 68 20 95 Room Air 03/11/23 07:15 Trach Collar 03/11/23 08:00 36.4 C L 60 18 155/76 H 93 Room Air 03/11/23 08:01 81 20 96 Room Air Laboratory Results 03/07/23 06:27 03/09/23 07:59 PG Care Time/CCT Total # of Minutes Spent Total Time Spent with Patient: Total time spent is greater than 50% in coordination of care (as documented) at patient's floor/unit and/or counseling patient: Coding Level of Care Code 69545 SUB INP/OBS CARE 2/35MIN Diagnoses Chronic diastolic congestive heart failure I50.32 Diarrhea R19.7 Lesion of left [place] kidney N28.9 Ambulatory dysfunction R26.2 Physical deconditioning R53.81 Failure to thrive CKD (chronic kidney disease) N18.9 GERD (gastroesophageal reflux disease) K21.9 Insulin-requiring or dependent type II diabetes mellitus E11.9; Z79.4 Chronic respiratory failure J96.10 Respiratory failure complication: unspecified whether with hypoxia or hy percapnia Dyslipidemia E78.5 Left knee pain M25.562 Anemia D64.9 Fracture of distal end of right femur S72.401A Morbid obesity with BMI of 60.0-69.9, adult E66.01; Z68.44 (10) Chronic respiratory failure Respiratory failure complication: unspecified whether with hypoxia or hypercapnia Qualified Code(s): J96.10 - Chronic respiratory failure, unspecified whether with hypoxia or hypercapnia
[2023-03-11] MEDS: ATORVASTATIN 40 MG TAB PO SCH (21:26)
[2023-03-11] MEDS: MELATONIN 3 MG TAB PO SCH (21:28)
[2023-03-12] MEDS: PANTOprazole 40 MG TAB PO SCH (06:22)
[2023-03-12] MEDS: TORSEMIDE 10 MG TAB PO SCH ×2 (06:22→15:46)
[2023-03-12] MEDS: LEVOTHYROXINE SODIUM 75 MCG TABLET PO SCH (06:22)
[2023-03-12 07:25] LABS: Creatinine Clr Calc Pharmacy 54.9 ml/min; Est GFR (African American) 41.3 ml/min; Est GFR (Non-African American) 35.6 ml/min
[2023-03-12] MEDS: Ipratropium HFA Inhaler (Combivent Respimat P&T Subs) INH SCH ×4 (07:27→19:28)
[2023-03-12] MEDS: Albuterol HFA 8 GM Inhaler (Combivent Respimat P&T Subs) INH SCH ×4 (07:28→19:28)
[2023-03-12] MEDS: SPIRONOLACTONE 25 MG TAB PO SCH (08:34)
[2023-03-12] MEDS: METOPROLOL TARTRATE 25 MG TAB PO SCH ×2 (08:35→21:08)
[2023-03-12] MEDS: POTASSIUM CHLORIDE CRTAB 20 MEQ TABCR PO SCH ×2 (08:37→21:09)
[2023-03-12] MEDS: ACETAMINOPHEN 500 MG TAB PO SCH ×3 (08:37→21:04)
[2023-03-12] MEDS: SERTRALINE HCL 50 MG TABLET PO SCH (08:37)
[2023-03-12] MEDS: buPROPion SR 100 MG TABCR PO SCH ×2 (08:37→21:06)
[2023-03-12] MEDS: MAGNESIUM OXIDE 400 MG TAB PO SCH (08:38)
[2023-03-12] MEDS: ASPIRIN 81 MG ECTAB PO SCH (08:38)
[2023-03-12] MEDS: ISOSORBIDE MONO EXTENDED REL 30 MG TABCR PO SCH (08:38)
[2023-03-12] MEDS: TOPIRAMATE 100 MG TAB PO SCH (08:38)
[2023-03-12] MEDS: ENOXAPARIN INJ 40 MG/0.4 ML SYR SQ SCH ×2 (08:39→21:07)
[2023-03-12] MEDS: DICLOFENAC SOD 1% GEL 100 GM TUBE EXT SCH ×4 (08:40→21:07)
[2023-03-12] MEDS: MUPIROCIN 2% OINT 22 GM TUBE EXT SCH ×2 (08:41→21:09)
[2023-03-12] MEDS: INSULIN, Rapid-Acting PUMP SCH ×4 (08:41→21:25)
--- NOTE | 2023-03-12 14:51 | Hospitalist Progress Note ---
Date of Service March 12, 2023 Assessment & Plan (1) Chronic diastolic congestive heart failure: Plan: Stable. Continue current medical management. Monitor intake and output (2) Diarrhea: Plan: Resolved (3) Lesion of left [place] kidney: Plan: Left renal cyst seen on ultrasound which appears benign. This can be followed up as an outpatient. No intervention necessary at this time (4) Ambulatory dysfunction: Plan: Continue OT and PT (5) Physical deconditioning: Plan: Continue OT and PT (6) Failure to thrive: Plan: Supportive care. Improved overall (7) CKD (chronic kidney disease): Plan: Monitor intake and output. Periodic lab studies (8) GERD (gastroesophageal reflux disease): Plan: Stable. Continue current medical management (9) Insulin-requiring or dependent type II diabetes mellitus: Plan: Stable. Continue current medical management. ADA diet (10) Chronic respiratory failure: Plan: Stable. Continue oxygen use as she does at home. (11) Dyslipidemia: Plan: Stable. Continue current medical management (12) Left knee pain: Plan: She fell at home prior to this admission. Now resolved. No evidence of fracture on x-rays (13) Anemia: Plan: Chronic. No overt GI bleeding. Serial labs (14) Fracture of distal end of right femur: Plan: Supportive care. This is limiting ambulatory capacity. (15) Morbid obesity with BMI of 60.0-69.9, adult: Plan: Recommend significant weight loss Plan Stable overall. Anticipate discharge to home once the lift chair is delivered. Home caregivers have been arranged Admission and Anticipated Discharge Date Admission Date: January 24, 2023 Subjective Alert and pleasant. No new problems. Review of Systems Review of Systems: Constitutional-no fever or chills ENT-no blurred vision, no double vision, no epistaxis, no sore throat Respiratory-no cough, no wheezing, no shortness of breath Cardiac-no palpitations, no chest pain, no syncope GI-no nausea, vomiting, diarrhea, melena, hematochezia -no urinary retention, no urinary incontinence, no dysuria, no hematuria Musculoskeletal-no joint pain, no muscle tenderness Skin-no bruising, no rashes, no pruritus Neuro-no isolated weakness, no paresthesia, no weakness Psych-no depression, no anxiety Physical Exam Physical Exam: General-alert and oriented x3, no fevers, no chills. Morbidly obese HEENT-head atraumatic and normocephalic, pupils equal and reactive to light, extraocular muscles intact Neck-no lymphadenopathy or thyromegaly, trachea midline. Permanent metal tracheostomy in place Chest-clear to auscultation percussion. No rales wheezing or rhonchi Cardiac-regular rate and rhythm, normal S1 and S2 Abdomen-normal bowel sounds, nontender, no hepatosplenomegaly Extremities-no cyanosis, clubbing, or edema Neuro-cranial nerves II through XII intact, motor and sensory function within normal limits, strength symmetrical , no focal deficits Psych-normal affect, normal mood Results & Data Results & Data Vital Signs (Past 12 Hours) Vital Signs Temp Pulse Pulse Resp BP Pulse Ox O2 Del Method 03/12/23 11:21 71 16 92 Room Air 03/12/23 07:59 36.6 C 65 18 107/67 94 Room Air 03/12/23 07:28 71 16 95 Room Air Laboratory Results 03/07/23 06:27 03/12/23 06:24 PG Care Time/CCT Total # of Minutes Spent Total Time Spent with Patient: Total time spent is greater than 50% in coordination of care (as documented) at patient's floor/unit and/or counseling patient: Coding Level of Care Code 18363 SUB INP/OBS CARE 2/35MIN Diagnoses Chronic diastolic congestive heart failure I50.32 Diarrhea R19.7 Lesion of left [place] kidney N28.9 Ambulatory dysfunction R26.2 Physical deconditioning R53.81 Failure to thrive CKD (chronic kidney disease) N18.9 GERD (gastroesophageal reflux disease) K21.9 Insulin-requiring or dependent type II diabetes mellitus E11.9; Z79.4 Chronic respiratory failure J96.10 Respiratory failure complication: unspecified whether with hypoxia or hypercapnia Dyslipidemia E78.5 Left knee pain M25.562 Anemia D64.9 Fracture of distal end of right femur S72.401A Morbid obesity with BMI of 60.0-69.9, adult E66.01; Z68.44 (10) Chronic respiratory failure Respiratory failure complication: unspecified whether with hypoxia or hypercapnia Qualified Code(s): J96.10 - Chronic respiratory failure, unspecified whether with hypoxia or hypercapnia
[2023-03-12] MEDS: ATORVASTATIN 40 MG TAB PO SCH (21:06)
[2023-03-12] MEDS: MELATONIN 3 MG TAB PO SCH (21:08)
[2023-03-12] MEDS: oxyCODONE HCL IR 5 MG TAB (IMMEDIATE RELEASE) PO PRN (22:31)
[2023-03-13] MEDS: LEVOTHYROXINE SODIUM 75 MCG TABLET PO SCH (06:12)
[2023-03-13] MEDS: TORSEMIDE 10 MG TAB PO SCH ×2 (06:13→15:45)
[2023-03-13] MEDS: PANTOprazole 40 MG TAB PO SCH (06:13)
[2023-03-13] MEDS: Ipratropium HFA Inhaler (Combivent Respimat P&T Subs) INH SCH ×4 (07:25→19:44)
[2023-03-13] MEDS: Albuterol HFA 8 GM Inhaler (Combivent Respimat P&T Subs) INH SCH ×4 (07:25→19:44)
[2023-03-13] MEDS: DICLOFENAC SOD 1% GEL 100 GM TUBE EXT SCH ×4 (08:21→22:23)
[2023-03-13] MEDS: MUPIROCIN 2% OINT 22 GM TUBE EXT SCH ×2 (08:22→22:27)
[2023-03-13] MEDS: buPROPion SR 100 MG TABCR PO SCH ×2 (08:23→22:27)
[2023-03-13] MEDS: ASPIRIN 81 MG ECTAB PO SCH (08:23)
[2023-03-13] MEDS: SPIRONOLACTONE 25 MG TAB PO SCH (08:23)
[2023-03-13] MEDS: MAGNESIUM OXIDE 400 MG TAB PO SCH (08:23)
[2023-03-13] MEDS: TOPIRAMATE 100 MG TAB PO SCH (08:23)
[2023-03-13] MEDS: SERTRALINE HCL 50 MG TABLET PO SCH (08:24)
[2023-03-13] MEDS: POTASSIUM CHLORIDE CRTAB 20 MEQ TABCR PO SCH ×2 (08:24→22:28)
[2023-03-13] MEDS: METOPROLOL TARTRATE 25 MG TAB PO SCH ×2 (08:24→22:25)
[2023-03-13] MEDS: ISOSORBIDE MONO EXTENDED REL 30 MG TABCR PO SCH (08:24)
[2023-03-13] MEDS: ACETAMINOPHEN 500 MG TAB PO SCH ×3 (08:24→22:24)
[2023-03-13] MEDS: ENOXAPARIN INJ 40 MG/0.4 ML SYR SQ SCH ×2 (08:25→22:24)
[2023-03-13] MEDS: INSULIN, Rapid-Acting PUMP SCH ×4 (09:51→22:23)
--- NOTE | 2023-03-13 12:39 | Hospitalist Progress Note ---
Date of Service March 13, 2023 Assessment & Plan (1) Chronic diastolic congestive heart failure: Plan: Stable. Continue current medical management. Monitor intake and output (2) Diarrhea: Plan: Resolved (3) Lesion of left [place] kidney: Plan: Left renal cyst seen on ultrasound which appears benign. This can be followed up as an outpatient. No intervention necessary at this time (4) Ambulatory dysfunction: Plan: Continue OT and PT (5) Physical deconditioning: Plan: Continue OT and PT (6) Failure to thrive: Plan: Supportive care. Improved overall (7) CKD (chronic kidney disease): Plan: Monitor intake and output. Periodic lab studies (8) GERD (gastroesophageal reflux disease): Plan: Stable. Continue current medical management (9) Insulin-requiring or dependent type II diabetes mellitus: Plan: Stable. Continue current medical management. ADA diet (10) Chronic respiratory failure: Plan: Stable. Continue oxygen use as she does at home. (11) Dyslipidemia: Plan: Stable. Continue current medical management (12) Left knee pain: Plan: She fell at home prior to this admission. Now resolved. No evidence of fracture on x-rays (13) Anemia: Plan: Chronic. No overt GI bleeding. Serial labs (14) Fracture of distal end of right femur: Plan: Supportive care. This is limiting ambulatory capacity. (15) Morbid obesity with BMI of 60.0-69.9, adult: Plan: Recommend significant weight loss Plan Stable overall. Anticipate discharge to home once the lift chair is delivered. Home caregivers have been arranged Admission and Anticipated Discharge Date Admission Date: January 24, 2023 Subjective Alert and oriented. Pleasant. Vital signs stable. Glucose 108. No new problems Review of Systems Review of Systems: Constitutional-no fever or chills ENT-no blurred vision, no double vision, no epistaxis, no sore throat Respiratory-no cough, no wheezing, no shortness of breath Cardiac-no palpitations, no chest pain, no syncope GI-no nausea, vomiting, diarrhea, melena, hematochezia -no urinary retention, no urinary incontinence, no dysuria, no hematuria Musculoskeletal-no joint pain, no muscle tenderness Skin-no bruising, no rashes, no pruritus Neuro-no isolated weakness, no paresthesia, no weakness Psych-no depression, no anxiety Physical Exam Physical Exam: General-alert and oriented x3, no fevers, no chills. Morbidly obese HEENT-head atraumatic and normocephalic, pupils equal and reactive to light, extraocular muscles intact Neck-no lymphadenopathy or thyromegaly, trachea midline. Permanent metal tracheostomy in place Chest-clear to auscultation percussion. No rales wheezing or rhonchi Cardiac-regular rate and rhythm, normal S1 and S2 Abdomen-normal bowel sounds, nontender, no hepatosplenomegaly Extremities-no cyanosis, clubbing, or edema Neuro-cranial nerves II through XII intact, motor and sensory function within normal limits, strength symmetrical , no focal deficits Psych-normal affect, normal mood Results & Data Results & Data Vital Signs (Past 12 Hours) Vital Signs Temp Pulse Pulse Resp BP Pulse Ox O2 Del Method 03/13/23 11:47 59 L 18 94 Room Air 03/13/23 07:45 Room Air 03/13/23 07:39 36.7 C 71 18 136/75 95 Room Air 03/13/23 07:31 67 18 94 Room Air PG Care Time/CCT Total # of Minutes Spent Total Time Spent with Patient: Total time spent is greater than 50% in coordination of care (as documented) at patient's floor/unit and/or counseling patient: Coding Level of Care Code 90058 SUB INP/OBS CARE 2/35MIN Diagnoses Chronic diastolic congestive heart failure I50.32 Diarrhea R19.7 Lesion of left [place] kidney N28.9 Ambulatory dysfunction R26.2 Physical deconditioning R53.81 Failure to thrive CKD (chronic kidney disease) N18.9 GERD (gastroesophageal reflux disease) K21.9 Insulin-requiring or dependent type II diabetes mellitus E11.9; Z79.4 Chronic respiratory failure J96.10 Respiratory failure complication: unspecified whether with hypoxia or hypercapnia Dyslipidemia E78.5 Left knee pain M25.562 Anemia D64.9 Fracture of distal end of right femur S72.401A Morbid obesity with BMI of 60.0-69.9, adult E66.01; Z68.44 (10) Chronic respiratory failure Respiratory failure complication: unspecified whether with hypoxia or hypercapnia Qualified Code(s): J96.10 - Chronic respiratory failure, unspeci fied whether with hypoxia or hypercapnia
[2023-03-13] MEDS: MELATONIN 3 MG TAB PO SCH (22:25)
[2023-03-13] MEDS: ATORVASTATIN 40 MG TAB PO SCH (22:27)
[2023-03-13] MEDS: oxyCODONE HCL IR 5 MG TAB (IMMEDIATE RELEASE) PO PRN (22:47)
[2023-03-14] MEDS: PANTOprazole 40 MG TAB PO SCH (06:19)
[2023-03-14] MEDS: LEVOTHYROXINE SODIUM 75 MCG TABLET PO SCH (06:19)
[2023-03-14] MEDS: TORSEMIDE 10 MG TAB PO SCH ×2 (06:21→13:40)
[2023-03-14] MEDS: Ipratropium HFA Inhaler (Combivent Respimat P&T Subs) INH SCH ×4 (08:08→20:08)
[2023-03-14] MEDS: Albuterol HFA 8 GM Inhaler (Combivent Respimat P&T Subs) INH SCH ×4 (08:08→20:08)
[2023-03-14] MEDS: AZITHROMYCIN 250 MG TAB PO SCH (08:57)
[2023-03-14] MEDS: buPROPion SR 100 MG TABCR PO SCH ×2 (08:57→21:49)
[2023-03-14] MEDS: SERTRALINE HCL 50 MG TABLET PO SCH (08:57)
[2023-03-14] MEDS: TOPIRAMATE 100 MG TAB PO SCH (08:57)
[2023-03-14] MEDS: ISOSORBIDE MONO EXTENDED REL 30 MG TABCR PO SCH (08:57)
[2023-03-14] MEDS: SPIRONOLACTONE 25 MG TAB PO SCH (08:57)
[2023-03-14] MEDS: MAGNESIUM OXIDE 400 MG TAB PO SCH (08:57)
[2023-03-14] MEDS: POTASSIUM CHLORIDE CRTAB 20 MEQ TABCR PO SCH ×2 (08:57→21:51)
[2023-03-14] MEDS: ACETAMINOPHEN 500 MG TAB PO SCH ×3 (08:57→21:47)
[2023-03-14] MEDS: ASPIRIN 81 MG ECTAB PO SCH (08:57)
[2023-03-14] MEDS: METOPROLOL TARTRATE 25 MG TAB PO SCH ×2 (08:57→21:50)
[2023-03-14] MEDS: DICLOFENAC SOD 1% GEL 100 GM TUBE EXT SCH ×4 (08:58→21:49)
[2023-03-14] MEDS: MUPIROCIN 2% OINT 22 GM TUBE EXT SCH ×2 (08:58→21:51)
[2023-03-14] MEDS: ENOXAPARIN INJ 40 MG/0.4 ML SYR SQ SCH ×2 (08:58→21:49)
[2023-03-14] MEDS: INSULIN, Rapid-Acting PUMP SCH ×4 (10:08→21:50)
--- NOTE | 2023-03-14 13:25 | Hospitalist Progress Note ---
Date of Service March 14, 2023 Assessment & Plan (1) Chronic diastolic congestive heart failure: Plan: Stable. Continue current medical management. Monitor intake and output (2) Open wound: Plan: left buttocks after pinched skin during roll onto bedpan cover with optifoam, observe for infection (3) Diarrhea: Plan: Resolved (4) Lesion of left [place] kidney: Plan: Left renal cyst seen on ultrasound which appears benign. This can be followed up as an outpatient. No intervention necessary at this time (5) Ambulatory dysfunction: Plan: Continue OT and PT (6) Physical deconditioning: Plan: Continue OT and PT (7) Failure to thrive: Plan: Supportive care. Improved overall (8) CKD (chronic kidney disease): Plan: Monitor intake and output. Periodic lab studies (9) GERD (gastroesophageal reflux disease): Plan: Stable. Continue current medical management (10) Insulin-requiring or dependent type II diabetes mellitus: Plan: Stable. Continue current medical management. ADA diet (11) Chronic respiratory failure: Plan: Stable. Continue oxygen use as she does at home. (12) Dyslipidemia: Plan: Stable. Continue current medical management (13) Left knee pain: Plan: She fell at home prior to this admission. Now resolved. No evidence of fra cture on x-rays (14) Anemia: Plan: Chronic. No overt GI bleeding. Serial labs (15) Fracture of distal end of right femur: Plan: Supportive care. This is limiting ambulatory capacity. (16) Morbid obesity with BMI of 60.0-69.9, adult: Plan: Recommend significant weight loss Plan Stable overall. Anticipate discharge to home once the lift chair is delivered. Home caregivers have been arranged Admission and Anticipated Discharge Date Admission Date: January 24, 2023 Subjective Was pinched overnight accidentally during a roll and has an open wound on left buttocks now. Otherwise no complaints Physical Exam Constitutional: WD/WN, vitals as above Respiratory: normal respiratory effort, lungs clear to auscultation Cardiovascular: RRR, no murmur, no edema Rate/Rhythm: regular rate and regular rhythm Skin: + lesion (left inferior buttocks 1 cm open wound,no erythema) Psychiatric: A+Ox3, euthymic affect Results & Data Results & Data Vital Signs (Past 12 Hours) Vital Signs Temp Pulse Pulse Resp BP Pulse Ox O2 Del Method 03/14/23 10:49 64 18 Room Air 03/14/23 07:00 Room Air 03/14/23 08:23 62 18 97 Room Air 03/14/23 08:15 36.6 C 70 18 168/71 H 93 Room Air 03/14/23 04:00 94 Room Air FiO2 03/14/23 10:49 95 03/14/23 07:00 03/14/23 08:23 03/14/23 08:15 03/14/23 04:00 PG Care Time/CCT Total # of Minutes Spent Total Time Spent with Patient: Total time spent is greater than 50% in coordination of care (as documented) at patient's floor/unit and/or counseling patient: Coding Level of Care Code 32099 SUB INP/OBS CARE 12/15MIN Diagnoses Chronic diastolic congestive heart failure I50.32 Open wound T14.8XXA Diarrhea R19.7 Lesion of left [place] kidney N28.9 Ambulatory dysfunction R26.2 Physical deconditioning R53.81 Failure to thrive CKD (chronic kidney disease) N18.9 GERD (gastroesophageal reflux disease) K21.9 Insulin-requiring or dependent type II diabetes mellitus E11.9; Z79.4 Chronic respiratory failure J96.10 Respiratory failure complication: unspecified whether with hypoxia or hypercapnia Dyslipidemia E78.5 Left knee pain M25.562 Anemia D64.9 Fracture of distal end of right femur S72.401A Morbid obesity with BMI of 60.0-69.9, adult E66.01; Z68.44 (11) Chronic respiratory failure Respiratory failure complication: unspecified whether with hypoxia or hypercapnia Qualified Code(s): J96.10 - Chronic respiratory failure, unspecified whether with hypoxia or hypercapnia
[2023-03-14] MEDS: oxyCODONE HCL IR 5 MG TAB (IMMEDIATE RELEASE) PO PRN (21:46)
[2023-03-14] MEDS: ATORVASTATIN 40 MG TAB PO SCH (21:48)
[2023-03-14] MEDS: MELATONIN 3 MG TAB PO SCH (21:50)
[2023-03-14] MEDS: ALBUT/IPRATROP 3MG/0.5MG NEB 3 ML VIAL INH PRN (23:02)
[2023-03-15] MEDS: oxyCODONE HCL IR 5 MG TAB (IMMEDIATE RELEASE) PO PRN ×2 (04:27→22:57)
[2023-03-15] MEDS: PANTOprazole 40 MG TAB PO SCH (06:16)
[2023-03-15] MEDS: LEVOTHYROXINE SODIUM 75 MCG TABLET PO SCH (06:16)
[2023-03-15] MEDS: TORSEMIDE 10 MG TAB PO SCH ×2 (06:16→13:22)
[2023-03-15] MEDS: ALBUT/IPRATROP 3MG/0.5MG NEB 3 ML VIAL INH PRN ×4 (07:25→19:36)
[2023-03-15] MEDS: Albuterol HFA 8 GM Inhaler (Combivent Respimat P&T Subs) INH SCH ×4 (07:27→19:51)
[2023-03-15] MEDS: Ipratropium HFA Inhaler (Combivent Respimat P&T Subs) INH SCH ×4 (07:28→19:51)
[2023-03-15 07:32] LABS: Creatinine Clr Calc Pharmacy 63.3 ml/min; Est GFR (African American) 49.1 ml/min; Est GFR (Non-African American) 42.3 ml/min
[2023-03-15] MEDS: ASPIRIN 81 MG ECTAB PO SCH (08:52)
[2023-03-15] MEDS: SPIRONOLACTONE 25 MG TAB PO SCH (08:52)
[2023-03-15] MEDS: TOPIRAMATE 100 MG TAB PO SCH (08:52)
[2023-03-15] MEDS: POTASSIUM CHLORIDE CRTAB 20 MEQ TABCR PO SCH ×2 (08:53→20:32)
[2023-03-15] MEDS: ISOSORBIDE MONO EXTENDED REL 30 MG TABCR PO SCH (08:53)
[2023-03-15] MEDS: SERTRALINE HCL 50 MG TABLET PO SCH (08:53)
[2023-03-15] MEDS: ACETAMINOPHEN 500 MG TAB PO SCH ×3 (08:53→20:28)
[2023-03-15] MEDS: ENOXAPARIN INJ 40 MG/0.4 ML SYR SQ SCH ×2 (08:54→20:30)
[2023-03-15] MEDS: buPROPion SR 100 MG TABCR PO SCH ×2 (08:54→20:29)
[2023-03-15] MEDS: INSULIN, Rapid-Acting PUMP SCH ×4 (08:54→20:30)
[2023-03-15] MEDS: DICLOFENAC SOD 1% GEL 100 GM TUBE EXT SCH ×4 (08:54→20:29)
[2023-03-15] MEDS: MAGNESIUM OXIDE 400 MG TAB PO SCH (08:55)
[2023-03-15] MEDS: MUPIROCIN 2% OINT 22 GM TUBE EXT SCH ×2 (08:56→20:31)
[2023-03-15] MEDS: METOPROLOL TARTRATE 25 MG TAB PO SCH ×2 (10:00→20:31)
--- NOTE | 2023-03-15 17:29 | Hospitalist Progress Note ---
Date of Service March 15, 2023 Assessment & Plan (1) Back pain: Plan: Developed acute right flank pain without inciting injury on 03/15 No hematuria grossly, no urinary symptoms, no h/o kidney stones No mass or hematoma noted on exam but with +CVA tenderness -check CT abd/pel noncon to look for stones -check UA -continue oxycodone prn -add lidocaine patch (2) Chronic diastolic congestive heart failure: Plan: Stable. Continue current medical management with torsemide, aldactone, KCl, and metoprolol. Monitor intake and output (3) Open wound: Plan: left buttocks after pinched skin during roll onto bedpan cover with optifoam, observe for infection (4) Diarrhea: Plan: Resolved (5) Lesion of left [place] kidney: Plan: Left renal cyst seen on ultrasound which appears benign. This can be followed up as an outpatient. No intervention necessary at this time (6) Ambulatory dysfunction: Plan: Continue OT and PT (7) Physical deconditioning: Plan: Continue OT and PT (8) Failure to thrive: Plan: Supportive care. Improved overall (9) CKD (chronic kidney disease): Plan: Monitor intake and output. Periodic lab studies-director of counterintelligence 1.3 on 03/15 (10) GERD (gastroesophageal reflux disease): Plan: Stable. Continue current medical management (11) Insulin-requiring or dependent type II diabetes mellitus: Plan: Stable. Continue current medical management. ADA diet (12) Chronic respiratory failure: Plan: Stable. Continue oxygen use as she does at home. (13) Dyslipidemia: Plan: Stable. Continue current medical management (14) Left knee pain: Plan: She fell at home prior to this admission. Now resolved. No evidence of fracture on x-rays (15) Anemia: Plan: Chronic. Hgb stable on last check at 11 No overt GI bleeding. Occasional CBC (16) Fracture of distal end of right femur: Plan: Supportive care. This is limiting ambulatory capacity. (17) Morbid obesity with BMI of 60.0-69.9, adult: Plan: Recommend significant weight loss Plan Stable overall. Anticipate discharge to home once the lift chair is delivered. Home caregivers have been arranged Admission and Anticipated Discharge Date Admission Date: January 24, 2023 Subjective Having right flank pain all night without any injury. No urinary symptoms, no dysuria or hematuria, frequency. No fevers. Oxycodone helps to relieve the pain. Also feels like her SOB is worsening but thinks it could be from the heat being turned up in the room. Physical Exam Constitutional: WD/WN, vitals as above Eyes: + anicteric sclerae Neck: + abnormal visual inspection (trach tube in place) Respiratory: normal respiratory effort, lungs clear to auscultation Cardiovascular: Rate/Rhythm: regular rate and regular rhythm Extremities: + edema (trace ankle edema bilat) Musculoskeletal: +Right CVA tenderness no masses or hematomas noted Psychiatric: A+Ox3, euthymic affect Results & Data Results & Data Vital Signs (Past 12 Hours) Vital Signs Temp Pulse Resp BP Pulse Ox O2 Del Method 03/15/23 16:12 36.7 C 70 18 142/77 H 93 Room Air 03/15/23 15:39 65 20 95 Room Air 03/15/23 11:40 70 22 94 Room Air 03/15/23 07:45 Trach Collar 03/15/23 07:29 64 20 92 Room Air 03/15/23 07:21 36.5 C 65 18 134/77 94 Room Air Laboratory Results [place] reviewed PG Care Time/CCT Total # of Minutes Spent Total Time Spent with Patient: Total time spent is greater than 50% in coordination of care (as documented) at patient's floor/unit and/or counseling patient: Coding Level of Care Code 57027 SUB INP/OBS CARE 2/35MIN Diagnoses Back pain M54.9 Chronic diastolic congestive heart failure I50.32 Open wound T14.8XXA Diarrhea R19.7 Lesion of left [place] kidney N28.9 Ambulatory dysfunction R26.2 Physical deconditioning R53.81 Failure to thrive CKD (chronic kidney disease) N18.9 GERD (gastroesophageal reflux disease) K21.9 Insulin-requiring or dependent type II diabetes mellitus E11.9; Z79.4 Chronic respiratory failure J96.10 Respiratory failure complication: unspecified whether with hypoxia or hypercapnia Dyslipidemia E78.5 Left knee pain M25.562 Anemia D64.9 Fracture of distal end of right femur S72.401A Morbid obesity with BMI of 60.0-69.9, adult E66.01; Z68.44 (12) Chronic respiratory failure Respiratory failure complication: unspecified whether with hypoxia or hypercapnia Qualified Code(s): J96.10 - Chronic respiratory failure, unspecified whether with hypoxia or hypercapnia
[2023-03-15] MEDS: LIDOCAINE 5% 1 PATCH TD SCH (18:18)
[2023-03-15] MEDS: ATORVASTATIN 40 MG TAB PO SCH (20:29)
[2023-03-15] MEDS: MELATONIN 3 MG TAB PO SCH (20:30)
[2023-03-15 21:10] LABS: Appearance Urine Clear (Clear); Bilirubin Urine Negative (Negative); Blood Urine Negative (Negative); Color Urine Yellow; Glucose Urine UA Negative (Negative); Ketones Urine Negative (Negative); Leukocyte Esterase Urine Negative (Negative); Nitrite Urine Negative (Negative); Protein Urine Negative (Negative); Specific Gravity Urine 1.006 (1.000-1.030); Urobilinogen Urine Negative (Negative); pH Urine 5.5 (4.5-7.5)
[2023-03-16] MEDS: oxyCODONE HCL IR 5 MG TAB (IMMEDIATE RELEASE) PO PRN (02:59)
[2023-03-16] MEDS: PANTOprazole 40 MG TAB PO SCH (05:30)
[2023-03-16] MEDS: LEVOTHYROXINE SODIUM 75 MCG TABLET PO SCH (05:30)
[2023-03-16] MEDS: TORSEMIDE 10 MG TAB PO SCH ×2 (05:31→14:11)
--- NOTE | 2023-03-16 06:37 | CT Scan Report ---
Exam(s): CT ABDOMEN + PELVIS Without Contrast EXAM: CT Abdomen and Pelvis Without Intravenous Contrast CLINICAL HISTORY: Reason for exam: right flank pain,r/o kidney stone. TECHNIQUE: Axial computed tomography images of the abdomen and pelvis without intravenous contrast. Automated exposure control was utilized for the study. A dose lowering technique was utilized adhering to the principles of ALARA. COMPARISON: No relevant prior studies available. FINDINGS: Lung bases: Discoid atelectasis seen in bilateral lung bases. ABDOMEN: Liver: Unremarkable. Gallbladder and bile ducts: Cholecystectomy. No ductal dilation. Pancreas: Unremarkable. No ductal dilation. Spleen: Unremarkable. No splenomegaly. Adrenals: Unremarkable. No mass. Kidneys and ureters: 3 mm nonobstructing stone seen in the left kidney. 2.4 cm left renal cortical cyst is seen. No hydronephrosis. Stomach and bowel: Unremarkable. No obstruction. No mucosal thickening. PELVIS: Appendix: No findings to suggest acute appendicitis. Bladder: Unremarkable. No stones. Reproductive: Unremarkable as visualized. ABDOMEN and PELVIS: Intraperitoneal space: Unremarkable. No free air. No significant fluid collection. Bones/joints: No acute fracture. No dislocation. Moderate multilevel degenerative disc disease changes seen in the lumbar spine. Soft tissues: The study does not include the entire right lateral abdominal wall. Vasculature: Unremarkable. No abdominal aortic aneurysm. Lymph nodes: Unremarkable. No enlarged lymph nodes. IMPRESSION: No hydronephrosis. Nonobstructing left nephrolithiasis Electronically signed by: Micah Mcgee MD 03/16/23 06:36 AM
[2023-03-16 06:57] LABS: Basophils # (auto) 0.06 K/uL (0-0.2); Basophils % (auto) 0.7 %; Eosinophils # (auto) 0.28 K/uL (0-0.50); Eosinophils % (auto) 3.5 %; Hemoglobin 11.6 g/dl (12.0-16.0); Immature Granulocytes # (auto) 0.08 K/uL (0.01-0.20); Lymphocytes # (auto) 2.01 K/uL (1.2-3.4); Lymphocytes % (auto) 25.1 %; Mean Corpuscular Hemoglobin 27.1 pg (25.0-34.0); Mean Corpuscular Hgb Conc 30.5 g/dL (32.0-36.0); Mean Corpuscular Volume 88.8 fL (80.0-100.0); Monocytes % (auto) 8.7 %; Neutrophils # (auto) 4.88 K/uL (1.40-6.50); Platelet Count 247 K/uL (130-400); RDW Coefficient of Variation 15.8 % (11.5-14.5); RDW Standard Deviation 51.2 fL (36.4-46.3); Red Blood Count 4.28 M/uL (4.20-5.40); White Blood Count 8.01 K/ul (4.8-10.8)
[2023-03-16] MEDS: ALBUT/IPRATROP 3MG/0.5MG NEB 3 ML VIAL INH PRN (07:54)
[2023-03-16] MEDS: Ipratropium HFA Inhaler (Combivent Respimat P&T Subs) INH SCH ×4 (07:54→19:29)
[2023-03-16] MEDS: Albuterol HFA 8 GM Inhaler (Combivent Respimat P&T Subs) INH SCH ×4 (07:54→19:28)
[2023-03-16 08:03] LABS: Albumin Level 3.6 gm/dl (3.4-5.0); BUN Creatinine Ratio 20.6 (10-20); Bilirubin,Total 0.4 mg/dl (0.2-1.0); Calcium 8.9 mg/dl (8.6-10.3); Creatinine Clr Calc Pharmacy 51.8 ml/min; Est GFR (African American) 38.5 ml/min; Est GFR (Non-African American) 33.2 ml/min; Globulin 3.5 gm/dl (2.5-4.0); Magnesium 2.1 mg/dl (1.7-2.4); Potassium 4.6 mmol/L (3.5-5.1); Total Protein 7.1 gm/dl (6.0-8.3)
[2023-03-16] MEDS ORDERED: TAMSULOSIN HCL 0.4 MG CAP PO SCH (09:00)
[2023-03-16] MEDS: MAGNESIUM OXIDE 400 MG TAB PO SCH (09:49)
[2023-03-16] MEDS: METOPROLOL TARTRATE 25 MG TAB PO SCH ×2 (09:49→20:25)
[2023-03-16] MEDS: ACETAMINOPHEN 500 MG TAB PO SCH ×3 (09:49→20:25)
[2023-03-16] MEDS: POTASSIUM CHLORIDE CRTAB 20 MEQ TABCR PO SCH ×2 (09:49→20:27)
[2023-03-16] MEDS: ENOXAPARIN INJ 40 MG/0.4 ML SYR SQ SCH ×2 (09:50→20:24)
[2023-03-16] MEDS: ISOSORBIDE MONO EXTENDED REL 30 MG TABCR PO SCH (09:50)
[2023-03-16] MEDS: buPROPion SR 100 MG TABCR PO SCH ×2 (09:50→20:24)
[2023-03-16] MEDS: DICLOFENAC SOD 1% GEL 100 GM TUBE EXT SCH ×4 (09:50→20:25)
[2023-03-16] MEDS: SPIRONOLACTONE 25 MG TAB PO SCH (09:50)
[2023-03-16] MEDS: ASPIRIN 81 MG ECTAB PO SCH (09:50)
[2023-03-16] MEDS: SERTRALINE HCL 50 MG TABLET PO SCH (09:50)
[2023-03-16] MEDS: TOPIRAMATE 100 MG TAB PO SCH (09:50)
[2023-03-16] MEDS: AZITHROMYCIN 250 MG TAB PO SCH (09:50)
[2023-03-16] MEDS: MUPIROCIN 2% OINT 22 GM TUBE EXT SCH ×2 (09:51→20:27)
[2023-03-16] MEDS: INSULIN, Rapid-Acting PUMP SCH ×4 (10:10→20:28)
--- NOTE | 2023-03-16 11:09 | Hospitalist Progress Note ---
Date of Service March 16, 2023 Assessment & Plan (1) Back pain: Plan: Developed acute right flank pain without inciting injury on 03/15 No hematuria grossly, no urinary symptoms, no h/o kidney stones No mass or hematoma noted on exam but with +CVA tenderness Urinalysis negative CT abd/pel noncon to look for stones is negative for obstructing stones. There is a 3 mm nonobstructing stone in the left kidney which is unrelated to her current pain Likely MSK in nature -Add heating pad -continue oxycodone prn -Continue lidocaine patch (2) Chronic diastolic congestive heart failure: Plan: Stable. Continue current medical management with torsemide, aldactone, KCl, and metoprolol. Monitor intake and output (3) Open wound: Plan: left buttocks after pinched skin during roll onto bedpan cover with optifoam, observe for infection Consult wound care (4) Lesion of left [place] kidney: Plan: Left renal cyst seen on ultrasound which appears benign. This can be followed up as an outpatient. No intervention necessary at this time (5) Ambulatory dysfunction: Plan: Continue OT and PT (6) Physical deconditioning: Plan: Continue OT and PT (7) Failure to thrive: Plan: Supportive care. Improved overall (8) CKD (chronic kidney disease): Plan: Monitor intake and output. Periodic lab studies-banana grader 1.6 on 03/16 (9) GERD (gastroesophageal reflux disease): Plan: Stable. Continue current medical management (10) Insulin-requiring or dependent type II diabetes mellitus: Plan: Stable. Continue current medical management. ADA diet (11) Chronic respiratory failure: Plan: Stable. Continue oxygen use as she does at home. Needs frequent trach care Need to exchange metal trach once weekly-her daughter cleans this for her at home (12) Dyslipidemia: Plan: Stable. Continue current medical management (13) Left knee pain: Plan: She fell at home prior to this admission. Now resolved. No evidence of fracture on x-rays (14) Anemia: Plan: Chronic. Hgb stable on last check at 11 No overt GI bleeding. Occasional CBC (15) Fracture of distal end of right femur: Plan: Supportive care. This is limiting ambulatory capacity. (16) Morbid obesity with BMI of 60.0-69.9, adult: Plan: Recommend significant weight loss Plan Stable overall. Anticipate discharge to home once the lift chair is delivered. Home caregivers have been arranged Admission and Anticipated Discharge Date Admission Date: January 24, 2023 Subjective Patient reports still ongoing right lower and mid back pain but improves with oxycodone. Her breathing feels much better today after her daughter brought in her other trach tube and exchange it. She said her old trach tube had not been exchanged in over a month and was clogged with thick mucus. Physical Exam Constitutional: WD/WN, vitals as above Eyes: + anicteric sclerae Neck: + abnormal visual inspection (trach tube in place) Respiratory: normal respiratory effort, lungs clear to auscultation Cardiovascular: RRR, no murmur, no edema Rate/Rhythm: regular rate and regular rhythm Musculoskeletal: Positive tenderness to palpation over right thoracic and lumbar paraspinous muscles, no masses or hematoma Skin: + lesion (left inferior buttocks 1 cm open wound,no erythema) Psychiatric: A+Ox3, euthymic affect Results & Data Results & Data Vital Signs (Past 12 Hours) Vital Signs Temp Pulse Pulse Resp BP Pulse Ox O2 Del Method 03/16/23 07:55 69 18 96 Room Air 03/16/23 07:45 Room Air 03/16/23 07:45 36.7 C 62 16 129/73 95 Room Air Laboratory Results CBC, CMP, magnesium, urinalysis all reviewed Diagnostic Findings CT abdomen/pelvis reviewed PG Care Time/CCT Total # of Minutes Spent Total Time Spent with Patient: Total time spent is greater than 50% in coordination of care (as documented) at patient's floor/unit and/or counseling patient: Coding Level of Care Code 37372 SUB INP/OBS CARE 2/35MIN Diagnoses Back pain M54.9 Chronic diastolic congestive heart failure I50.32 Open wound T14.8XXA Lesion of left [place] kidney N28.9 Ambulatory dysfunction R26.2 Physical deconditioning R53.81 Failure to thrive CKD (chronic kidney disease) N18.9 GERD (gastroesophageal reflux disease) K21.9 Insulin-requiring or dependent type II diabetes mellitus E11.9; Z79.4 Chronic respiratory failure J96.10 Respiratory failure complication: unspecified whether with hypoxia or hypercapnia Dyslipidemia E78.5 Left knee pain M25.562 Anemia D64.9 Fracture of distal end of right femur S72.401A Morbid obesity with BMI of 60.0-69.9, adult E66.01; Z68.44 (11) Chronic respiratory failure Respiratory failure complication: unspecified whether with hypoxia or hypercapnia Qualified Code(s): J96.10 - Chronic respiratory failure, unspecified whether with hypoxia or hypercapnia
[2023-03-16] MEDS: LIDOCAINE 5% 1 PATCH TD SCH (18:12)
[2023-03-16] MEDS: MELATONIN 3 MG TAB PO SCH (20:24)
[2023-03-16] MEDS: ATORVASTATIN 40 MG TAB PO SCH (20:25)
[2023-03-17] MEDS: PANTOprazole 40 MG TAB PO SCH (06:06)
[2023-03-17] MEDS: LEVOTHYROXINE SODIUM 75 MCG TABLET PO SCH (06:06)
[2023-03-17] MEDS: TORSEMIDE 10 MG TAB PO SCH ×2 (06:06→13:49)
[2023-03-17] MEDS: Ipratropium HFA Inhaler (Combivent Respimat P&T Subs) INH SCH ×4 (07:27→19:26)
[2023-03-17] MEDS: Albuterol HFA 8 GM Inhaler (Combivent Respimat P&T Subs) INH SCH ×4 (07:27→19:25)
[2023-03-17] MEDS: ACETAMINOPHEN 500 MG TAB PO SCH ×3 (09:21→21:18)
[2023-03-17] MEDS: INSULIN, Rapid-Acting PUMP SCH ×4 (09:21→21:23)
[2023-03-17] MEDS: DICLOFENAC SOD 1% GEL 100 GM TUBE EXT SCH ×4 (09:22→21:19)
[2023-03-17] MEDS: ISOSORBIDE MONO EXTENDED REL 30 MG TABCR PO SCH (09:22)
[2023-03-17] MEDS: SERTRALINE HCL 50 MG TABLET PO SCH (09:22)
[2023-03-17] MEDS: buPROPion SR 100 MG TABCR PO SCH ×2 (09:22→21:18)
[2023-03-17] MEDS: ASPIRIN 81 MG ECTAB PO SCH (09:22)
[2023-03-17] MEDS: METOPROLOL TARTRATE 25 MG TAB PO SCH ×2 (09:23→21:19)
[2023-03-17] MEDS: ENOXAPARIN INJ 40 MG/0.4 ML SYR SQ SCH ×2 (09:23→21:18)
[2023-03-17] MEDS: SPIRONOLACTONE 25 MG TAB PO SCH (09:24)
[2023-03-17] MEDS: POTASSIUM CHLORIDE CRTAB 20 MEQ TABCR PO SCH ×2 (09:24→21:20)
[2023-03-17] MEDS: MAGNESIUM OXIDE 400 MG TAB PO SCH (09:24)
[2023-03-17] MEDS: TOPIRAMATE 100 MG TAB PO SCH (09:24)
[2023-03-17] MEDS: MUPIROCIN 2% OINT 22 GM TUBE EXT SCH ×2 (09:25→21:19)
--- NOTE | 2023-03-17 18:10 | Hospitalist Progress Note ---
Date of Service March 17, 2023 Assessment & Plan (1) Back pain: Plan: Developed acute right flank pain without inciting injury on 03/15 No hematuria grossly, no urinary symptoms, no h/o kidney stones No mass or hematoma noted on exam but with +CVA tenderness Urinalysis negative CT abd/pel noncon to look for stones is negative for obstructing stones. There is a 3 mm nonobstructing stone in the left kidney which is unrelated to her current pain Did have dysuria x 1 day but UA negative Likely MSK in nature-ongoing despite heating pad, relieved with oxycodone, exacerbated by movement -continue heating pad -continue oxycodone prn -Continue lidocaine patch -if worsening or not improving, consider repeat UA or imaging (2) Chronic diastolic congestive heart failure: Plan: Stable. Continue current medical management with torsemide, aldactone, KCl, and metoprolol. Monitor intake and output (3) Open wound: Plan: left buttocks after pinched skin during roll onto bedpan observe for infection Consult wound care appreciated-recommend Aquacel Ag and secure with Optifoam, change q3 days and prn Right posterior knee wound-tuck Kaltostat into fold and change every other day (4) Lesion of left [place] kidney: Plan: Left renal cyst seen on ultrasound which appears benign. This can be followed up as an outpatient. No intervention necessary at this time (5) Ambulatory dysfunction: Plan: Continue OT and PT (6) Physical deconditioning: Plan: Continue OT and PT (7) Failure to thrive: Plan: Supportive care. Improved overall (8) CKD (chronic kidney disease): Plan: Monitor intake and output. Periodic lab studies-ob scrub tech 1.6 on 03/16 (9) GERD (gastroesophageal reflux disease): Plan: Stable. Continue current medical management (10) Insulin-requiring or dependent type II diabetes mellitus: Plan: Stable. Continue current medical management. ADA diet (11) Chronic respiratory failure: Plan: Stable. Continue oxygen use as she does at home. Needs frequent trach care Need to exchange metal trach once weekly-her daughter cleans this for her at home (12) Dyslipidemia: Plan: Stable. Continue current medical management (13) Left knee pain: Plan: She fell at home prior to this admission. Now resolved. No evidence of fracture on x-rays (14) Anemia: Plan: Chronic. Hgb stable on last check at 11 No overt GI bleeding. Occasional CBC (15) Fracture of distal end of right femur: Plan: Supportive care. This is limiting ambulatory capacity. (16) Morbid obesity with BMI of 60.0-69.9, adult: Plan: Recommend significant weight loss Plan Stable overall. Anticipate discharge to home once the lift chair is delivered. Home caregivers have been arranged Admission and Anticipated Discharge Date Admission Date: January 24, 2023 Subjective Still with some right sided back pain, worse with movement. Did have some burning with urination yesterday but today is resolved. Otherwise no complaints. Physical Exam Constitutional: WD/WN, vitals as above Eyes: + anicteric sclerae Neck: + abnormal visual inspection (trach tube in place) Respiratory: normal respiratory effort, lungs clear to auscultation Cardiovascular: RRR, no murmur, no edema Rate/Rhythm: regular rate and regular rhythm Extremities: + edema (trace ankle edema bilat) Psychiatric: A+Ox3, euthymic affect Results & Data Results & Data Vital Signs (Past 12 Hours) Vital Signs Temp Pulse Pulse Resp BP Pulse Ox O2 Del Method 03/17/23 16:09 78 20 94 Room Air 03/17/23 15:07 37.1 C 71 18 119/65 95 Room Air, Trach Collar 03/17/23 11:31 77 18 95 Room Air 03/17/23 08:10 36.5 C 76 18 157/71 H 92 Room Air 03/17/23 07:28 65 20 93 Room Air PG Care Time/CCT Total # of Minutes Spent Total Time Spent with Patient: Total time spent is greater than 50% in coordination of care (as documented) at patient's floor/unit and/or counseling patient: Coding Level of Care Code 63609 SUB INP/OBS CARE 1/25MIN Diagnoses Back pain M54.9 Chronic diastolic congestive heart failure I50.32 Open wound T14.8XXA Lesion of left [place] kidney N28.9 Ambulatory dysfunction R26.2 Physical deconditioning R53.81 Failure to thrive CKD (chronic kidney disease) N18.9 GERD (gastroesophageal reflux disease) K21.9 Insulin-requiring or dependent type II diabetes mellitus E11.9; Z79.4 Chronic respiratory failure J96.10 Respiratory failure complication: unspecified whether with hypoxia or hypercapnia Dyslipidemia E78.5 Left knee pain M25.562 Anemia D64.9 Fracture of distal end of right femur S72.401A Morbid obesity with BMI of 60.0-69.9, adult E66.01; Z68.44 (11) Chronic respiratory failure Respiratory failure complication: unspecified whether with hypoxia or hypercapnia Qualified Code(s): J96.10 - Chronic respiratory failure, unspecified whether with hypoxia or hypercapnia
[2023-03-17] MEDS: LIDOCAINE 5% 1 PATCH TD SCH (18:32)
[2023-03-17] MEDS: MELATONIN 3 MG TAB PO SCH (21:20)
[2023-03-17] MEDS: ATORVASTATIN 40 MG TAB PO SCH (21:20)
[2023-03-18] MEDS: oxyCODONE HCL IR 5 MG TAB (IMMEDIATE RELEASE) PO PRN (01:21)
[2023-03-18] MEDS: TORSEMIDE 10 MG TAB PO SCH ×2 (06:02→13:09)
[2023-03-18] MEDS: PANTOprazole 40 MG TAB PO SCH (06:02)
[2023-03-18] MEDS: LEVOTHYROXINE SODIUM 75 MCG TABLET PO SCH (06:02)
[2023-03-18] MEDS: Ipratropium HFA Inhaler (Combivent Respimat P&T Subs) INH SCH ×4 (07:41→19:45)
[2023-03-18] MEDS: Albuterol HFA 8 GM Inhaler (Combivent Respimat P&T Subs) INH SCH ×4 (07:41→19:44)
[2023-03-18] MEDS: ACETAMINOPHEN 500 MG TAB PO SCH ×3 (09:26→20:34)
[2023-03-18] MEDS: AZITHROMYCIN 250 MG TAB PO SCH (09:26)
[2023-03-18] MEDS: ASPIRIN 81 MG ECTAB PO SCH (09:26)
[2023-03-18] MEDS: METOPROLOL TARTRATE 25 MG TAB PO SCH ×2 (09:26→20:36)
[2023-03-18] MEDS: buPROPion SR 100 MG TABCR PO SCH ×2 (09:27→20:37)
[2023-03-18] MEDS: MAGNESIUM OXIDE 400 MG TAB PO SCH (09:28)
[2023-03-18] MEDS: SPIRONOLACTONE 25 MG TAB PO SCH (09:28)
[2023-03-18] MEDS: ISOSORBIDE MONO EXTENDED REL 30 MG TABCR PO SCH (09:28)
[2023-03-18] MEDS: SERTRALINE HCL 50 MG TABLET PO SCH (09:28)
[2023-03-18] MEDS: POTASSIUM CHLORIDE CRTAB 20 MEQ TABCR PO SCH ×2 (09:28→20:34)
[2023-03-18] MEDS: TOPIRAMATE 100 MG TAB PO SCH (09:28)
[2023-03-18] MEDS: MUPIROCIN 2% OINT 22 GM TUBE EXT SCH ×2 (09:29→20:39)
[2023-03-18] MEDS: ENOXAPARIN INJ 40 MG/0.4 ML SYR SQ SCH ×2 (09:29→20:38)
[2023-03-18] MEDS: DICLOFENAC SOD 1% GEL 100 GM TUBE EXT SCH ×4 (09:30→20:35)
[2023-03-18 09:52] LABS: Creatinine Clr Calc Pharmacy 54.9 ml/min; Est GFR (African American) 41.3 ml/min; Est GFR (Non-African American) 35.6 ml/min
[2023-03-18] MEDS: INSULIN, Rapid-Acting PUMP SCH ×4 (10:12→21:29)
--- NOTE | 2023-03-18 15:34 | Hospitalist Progress Note ---
Date of Service March 18, 2023 Assessment & Plan (1) Back pain: Plan: Developed acute right flank pain without inciting injury on 03/15 No hematuria grossly, no urinary symptoms, no h/o kidney stones No mass or hematoma noted on exam but with +CVA tenderness Urinalysis negative CT abd/pel noncon to look for stones is negative for obstructing stones. There is a 3 mm nonobstructing stone in the left kidney which is unrelated to her current pain Did have dysuria x 1 day but UA negative Likely MSK in nature-ongoing despite heating pad, relieved with oxycodone, exacerbated by movement -continue heating pad -continue oxycodone prn -Continue lidocaine patch -add Voltaren gel to right back qid -if worsening or not improving, consider repeat UA or imaging (2) Chronic diastolic congestive heart failure: Plan: Stable. Continue current medical management with torsemide, aldactone, KCl, and metoprolol. Monitor intake and output (3) Open wound: Plan: left buttocks after pinched skin during roll onto bedpan observe for infection Consult wound care appreciated-recommend Aquacel Ag and secure with Optifoam, change q3 days and prn Right posterior knee wound-tuck Kaltostat into fold and change every other day (4) Lesion of left [place] kidney: Plan: Left renal cyst seen on ultrasound which appears benign. This can be followed up as an outpatient. No intervention necessary at this time (5) Ambulatory dysfunction: Plan: Continue OT and PT (6) Physical deconditioning: Plan: Continue OT and PT (7) Failure to thrive: Plan: Supportive care. Improved overall (8) CKD (chronic kidney disease): Plan: Monitor intake and output. Periodic lab studies-chemist proteins 1.6 on 03/16 (9) GERD (gastroesophageal reflux disease): Plan: Stable. Continue current medical management (10) Insulin-requiring or dependent type II diabetes mellitus: Plan: Stable. Continue current medical management. ADA diet (11) Chronic respiratory failure: Plan: Stable. Continue oxygen use as she does at home. Needs frequent trach care Need to exchange metal trach once weekly-her daughter cleans this for her at home (12) Dyslipidemia: Plan: Stable. Continue current medical management (13) Left knee pain: Plan: She fell at home prior to this admission. Now resolved. No evidence of fracture on x-rays (14) Anemia: Plan: Chronic. Hgb stable on last check at 11 No overt GI bleeding. Occasional CBC (15) Fracture of distal end of right femur: Plan: Supportive care. This is limiting ambulatory capacity. (16) Morbid obesity with BMI of 60.0-69.9, adult: Plan: Recommend significant weight loss Plan Stable overall. Anticipate discharge to home once the lift chair is delivered. Home caregivers have been arranged Admission and Anticipated Discharge Date Admission Date: January 24, 2023 Subjective Still having 9/10 right mid and lower back pain, worse with movement, but smiling and appears comfortable. No other complaints Physical Exam Constitutional: WD/WN, vitals as above Eyes: + anicteric sclerae Neck: + abnormal visual inspection (trach tube in place) Respiratory: normal respiratory effort, lungs clear to auscultation Cardiovascular: RRR, no murmur, no edema Rate/Rhythm: regular rate and regular rhythm Extremities: + edema (trace ankle edema bilat) Musculoskeletal: +TTP over right mid and lower back paraspinous muscles, no mass or hematoma, no ecchymosis Psychiatric: A+Ox3, euthymic affect Results & Data Results & Data Vital Signs (Past 12 Hours) Vital Signs Temp Pulse Pulse Pulse Resp BP Pulse Ox 03/18/23 15:06 36.4 C L 69 18 122/68 95 03/18/23 15:02 69 18 95 03/18/23 11:34 86 97 03/18/23 11:15 03/18/23 07:43 36.5 C 64 18 150/79 H 94 03/18/23 07:42 66 18 94 O2 Del Method 03/18/23 15:06 Room Air 03/18/23 15:02 Room Air 03/18/23 11:34 Room Air 03/18/23 11:15 Room Air, Trach Collar 03/18/23 07:43 Room Air 03/18/23 07:42 Room Air PG Care Time/CCT Total # of Minutes Spent Total Time Spent with Patient: Total time spent is greater than 50% in coordination of care (as documented) at patient's floor/unit and/or counseling patient: Coding Level of Care Code 22283 SUB INP/OBS CARE 1/25MIN Diagnoses Back pain M54.9 Chronic diastolic congestive heart failure I50.32 Open wound T14.8XXA Lesion of left [place] kidney N28.9 Ambulatory dysfunction R26.2 Physical deconditioning R53.81 Failure to thrive CKD (chronic kidney disease) N18.9 GERD (gastroesophageal reflux disease) K21.9 Insulin-requiring or dependent type II diabetes mellitus E11.9; Z79.4 Chronic respiratory failure J96.10 Respiratory failure complication: unspecified whether with hypoxia or hypercapnia Dyslipidemia E78.5 Left knee pain M25.562 Anemia D64.9 Fracture of distal end of right femur S72.401A Morbid obesity with BMI of 60.0-69.9, adult E66.01; Z68.44 (11) Chronic respiratory failure Respiratory failure complication: unspecified whether with hypoxia or hypercapnia Qualified Code(s): J96.10 - Chronic respiratory failure, unspecified whether with hypoxia or hypercapnia
[2023-03-18] MEDS: LIDOCAINE 5% 1 PATCH TD SCH (18:17)
[2023-03-18] MEDS: MELATONIN 3 MG TAB PO SCH (20:39)
[2023-03-18] MEDS: ATORVASTATIN 40 MG TAB PO SCH (20:40)
[2023-03-19] MEDS: LEVOTHYROXINE SODIUM 75 MCG TABLET PO SCH (05:35)
[2023-03-19] MEDS: PANTOprazole 40 MG TAB PO SCH (05:37)
[2023-03-19] MEDS: TORSEMIDE 10 MG TAB PO SCH ×2 (05:41→15:18)
[2023-03-19] MEDS: Albuterol HFA 8 GM Inhaler (Combivent Respimat P&T Subs) INH SCH ×4 (07:29→19:10)
[2023-03-19] MEDS: Ipratropium HFA Inhaler (Combivent Respimat P&T Subs) INH SCH ×4 (07:30→19:10)
[2023-03-19] MEDS: POTASSIUM CHLORIDE CRTAB 20 MEQ TABCR PO SCH ×2 (08:47→20:51)
[2023-03-19] MEDS: ASPIRIN 81 MG ECTAB PO SCH (08:47)
[2023-03-19] MEDS: METOPROLOL TARTRATE 25 MG TAB PO SCH ×2 (08:48→20:52)
[2023-03-19] MEDS: buPROPion SR 100 MG TABCR PO SCH ×2 (08:48→20:54)
[2023-03-19] MEDS: ENOXAPARIN INJ 40 MG/0.4 ML SYR SQ SCH ×2 (08:48→20:49)
[2023-03-19] MEDS: SPIRONOLACTONE 25 MG TAB PO SCH (08:48)
[2023-03-19] MEDS: MAGNESIUM OXIDE 400 MG TAB PO SCH (08:48)
[2023-03-19] MEDS: SERTRALINE HCL 50 MG TABLET PO SCH (08:48)
[2023-03-19] MEDS: MUPIROCIN 2% OINT 22 GM TUBE EXT SCH ×2 (08:49→20:55)
[2023-03-19] MEDS: ACETAMINOPHEN 500 MG TAB PO SCH ×3 (08:49→20:49)
[2023-03-19] MEDS: DICLOFENAC SOD 1% GEL 100 GM TUBE EXT SCH ×4 (08:49→20:55)
[2023-03-19] MEDS: ISOSORBIDE MONO EXTENDED REL 30 MG TABCR PO SCH (08:49)
[2023-03-19] MEDS: TOPIRAMATE 100 MG TAB PO SCH (08:51)
[2023-03-19] MEDS: INSULIN, Rapid-Acting PUMP SCH ×4 (09:29→21:33)
[2023-03-19 14:42] LABS: Appearance Urine Clear (Clear); Bilirubin Urine Negative (Negative); Blood Urine Negative (Negative); Color Urine Yellow; Glucose Urine UA Negative (Negative); Ketones Urine Negative (Negative); Leukocyte Esterase Urine Negative (Negative); Nitrite Urine Negative (Negative); Protein Urine Negative (Negative); Specific Gravity Urine 1.016 (1.000-1.030); Urobilinogen Urine Negative (Negative); pH Urine 5.5 (4.5-7.5)
[2023-03-19] MEDS ORDERED: FLUCONAZOLE 50 MG TAB PO ONE (15:28)
--- NOTE | 2023-03-19 15:30 | Hospitalist Progress Note ---
Date of Service March 19, 2023 Assessment & Plan (1) Back pain: Plan: Developed acute right flank pain without inciting injury on 03/15 No hematuria grossly, no urinary symptoms, no h/o kidney stones No mass or hematoma noted on exam but with +CVA tenderness Urinalysis negative x 2 CT abd/pel noncon to look for stones is negative for obstructing stones. There is a 3 mm nonobstructing stone in the left kidney which is unrelated to her current pain Re-reead of CT requested on 03/19--> does have LEFT 4mm distal ureteral stone but no hydronephrosis, would not be causing her right sided back pain Likely MSK in nature-ongoing despite heating pad, relieved with oxycodone, exacerbated by movement -continue heating pad -continue oxycodone prn -Continue lidocaine patch -continue Voltaren gel to right back qid -change to air mattress (2) Chronic diastolic congestive heart failure: Plan: Stable. Continue current medical management with torsemide, aldactone, KCl, and metoprolol. 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 (no JESSICA) -has pain in right flank but no stones on right -strain urine -no intervention needed at this point -monitor (4) Vaginal candidiasis: Plan: had vaginal itching, some mild vulvar erythema on 03/19 -give Diflucan 150mg po x 1 (5) Open wound: Plan: left buttocks after pinched skin during roll onto bedpan observe for infection Consult wound care appreciated-recommend Aquacel Ag and secure with Optifoam, change q3 days and prn Right posterior knee wound-tuck Kaltostat into fold and change every other day (6) Lesion of left [place] kidney: Plan: Left renal cyst seen on ultrasound which appears benign. This can be followed up as an outpatient. No intervention necessary at this time (7) Ambulatory dysfunction: Plan: Continue OT and PT (8) Physical deconditioning: Plan: Continue OT and PT (9) Failure to thrive: Plan: Supportive care. Improved overall (10) CKD (chronic kidney disease): Plan: Monitor intake and output. Periodic lab studies-infant room teacher 1.5 on 03/18 (11) GERD (gastroesophageal reflux disease): Plan: Stable. Continue current medical management (12) Insulin-requiring or dependent type II diabetes mellitus: Plan: Stable. Continue current medical management. ADA diet (13) Chronic respiratory failure: Plan: Stable. Continue oxygen use as she does at home. Needs frequent trach care Need to exchange metal trach once weekly-her daughter cleans this for her at home (14) Dyslipidemia: Plan: Stable. Continue current medical management (15) Left knee pain: Plan: She fell at home prior to this admission. Now resolved. No evidence of f racture on x-rays (16) Anemia: Plan: Chronic. Hgb stable on last check at 11 No overt GI bleeding. Occasional CBC (17) Fracture of distal end of right femur: Plan: Supportive care. This is limiting ambulatory capacity. (18) Morbid obesity with BMI of 60.0-69.9, adult: Plan: Recommend significant weight loss Plan Stable overall. Anticipate discharge to home once the lift chair is delivered on March 21 if home caregivers have been arranged-hopefully next week? Admission and Anticipated Discharge Date Admission Date: January 24, 2023 Subjective Still having right sided back pain, requests different mattress. Also has c/o vaginal itching. Moving bowels, making urine, no further dysuria. No left sided pain. Asked Radiologist to re-read her CT abd/pel from the other day and there is a LEFT 4 mm distal ureteral stone without hydro, but nothing on right side to explain her pain. Physical Exam Constitutional: WD/WN, vitals as above Eyes: + anicteric sclerae Neck: + abnormal visual inspection (trach tube in place) Respiratory: normal respiratory effort, lungs clear to auscultation Cardiovascular: Rate/Rhythm: regular rate and regular rhythm Extremities: + edema (trace ankle edema bilat) Gastrointestinal (Abdomen): normal bowel sounds, soft, nontender, no hepatosplenomegaly Skin: + lesion (left inferior buttocks 1 cm open wound,no erythema) Psychiatric: A+Ox3, euthymic affect Genitourinary: large pannus lifted and suprapubic fat pad lifted, some mild vulvar erythema, no discharge seen from vagina Results & Data Results & Data Vital Signs (Past 12 Hours) Vital Signs Temp Pulse Pulse Resp BP Pulse Ox O2 Del Method 03/19/23 15:18 62 18 95 Room Air 03/19/23 14:58 36.8 C 67 18 120/68 95 Room Air 03/19/23 11:07 65 18 96 Room Air 03/19/23 07:32 64 20 95 Room Air 03/19/23 07:18 Room Air 03/19/23 07:19 36.4 C L 70 16 141/78 H 94 Room Air Laboratory Results UA reviewed-normal PG Care Time/CCT Total # of Minutes Spent Total Time Spent with Patient: Total time spent is greater than 50% in coordination of care (as documented) at patient's floor/unit and/or counseling patient: Coding Level of Care Code 62882 SUB INP/OBS CARE 2/35MIN Diagnoses Back pain M54.9 Chronic diastolic congestive heart failure I50.32 Ureterolithiasis N20.1 Vaginal candidiasis B37.31 Open wound T14.8XXA Lesion of left [place] kidney N28.9 Ambulatory dysfunction R26.2 Physical deconditioning R53.81 Failure to thrive CKD (chronic kidney disease) N18.9 GERD (gastroesophageal reflux disease) K21.9 Insulin-requiring or dependent type II diabetes mellitus E11.9; Z79.4 Chronic respiratory failure J96.10 Respiratory failure complication: unspecified whether with hypoxia or hypercapnia Dyslipidemia E78.5 Left knee pain M25.562 Anemia D64.9 Fracture of distal end of right femur S72.401A Morbid obesity with BMI of 60.0-69.9, adult E66.01; Z68.44 (13) Chronic respiratory failure Respiratory failure complication: unspecified whether with hypoxia or hypercapnia Qualified Code(s): J96.10 - Chronic respiratory failure, unspecified whether with hypoxia or hypercapnia
[2023-03-19] MEDS: oxyCODONE HCL IR 5 MG TAB (IMMEDIATE RELEASE) PO PRN (17:04)
[2023-03-19] MEDS: LIDOCAINE 5% 1 PATCH TD SCH (17:05)
[2023-03-19] MEDS: MELATONIN 3 MG TAB PO SCH (20:52)
[2023-03-19] MEDS: ATORVASTATIN 40 MG TAB PO SCH (20:54)
[2023-03-20] MEDS: PANTOprazole 40 MG TAB PO SCH (06:16)
[2023-03-20] MEDS: TORSEMIDE 10 MG TAB PO SCH ×2 (06:16→14:05)
[2023-03-20] MEDS: LEVOTHYROXINE SODIUM 75 MCG TABLET PO SCH (06:16)
[2023-03-20] MEDS: Ipratropium HFA Inhaler (Combivent Respimat P&T Subs) INH SCH ×4 (07:59→19:38)
[2023-03-20] MEDS: Albuterol HFA 8 GM Inhaler (Combivent Respimat P&T Subs) INH SCH ×4 (07:59→19:38)
[2023-03-20] MEDS: POTASSIUM CHLORIDE CRTAB 20 MEQ TABCR PO SCH ×2 (09:34→21:27)
[2023-03-20] MEDS: ISOSORBIDE MONO EXTENDED REL 30 MG TABCR PO SCH (09:35)
[2023-03-20] MEDS: ACETAMINOPHEN 500 MG TAB PO SCH ×3 (09:35→21:28)
[2023-03-20] MEDS: SERTRALINE HCL 50 MG TABLET PO SCH (09:35)
[2023-03-20] MEDS: TOPIRAMATE 100 MG TAB PO SCH (09:35)
[2023-03-20] MEDS: ASPIRIN 81 MG ECTAB PO SCH (09:35)
[2023-03-20] MEDS: SPIRONOLACTONE 25 MG TAB PO SCH (09:36)
[2023-03-20] MEDS: buPROPion SR 100 MG TABCR PO SCH ×2 (09:36→21:28)
[2023-03-20] MEDS: ENOXAPARIN INJ 40 MG/0.4 ML SYR SQ SCH ×2 (09:36→21:33)
[2023-03-20] MEDS: METOPROLOL TARTRATE 25 MG TAB PO SCH ×2 (09:37→21:33)
[2023-03-20] MEDS: MAGNESIUM OXIDE 400 MG TAB PO SCH (09:37)
[2023-03-20] MEDS: DICLOFENAC SOD 1% GEL 100 GM TUBE EXT SCH ×4 (09:38→21:35)
[2023-03-20] MEDS: MUPIROCIN 2% OINT 22 GM TUBE EXT SCH ×2 (09:38→21:35)
[2023-03-20] MEDS: INSULIN, Rapid-Acting PUMP SCH ×4 (09:46→21:35)
--- NOTE | 2023-03-20 12:11 | Hospitalist Progress Note ---
Date of Service March 20, 2023 Assessment & Plan (1) Back pain: Plan: Developed acute right flank pain without inciting injury on 03/15 No hematuria grossly, no urinary symptoms, no h/o kidney stones No mass or hematoma noted on exam but with +CVA tenderness Urinalysis negative x 2 CT abd/pel noncon to look for stones is negative for obstructing stones. There is a 3 mm nonobstructing stone in the left kidney which is unrelated to her current pain Re-reead of CT requested on 03/19--> does have LEFT 4mm distal ureteral stone but no hydronephrosis, would not be causing her right sided back pain Likely MSK in nature-ongoing despite heating pad, relieved with oxycodone, exacerbated by movement Now improved with changing to air mattress -continue heating pad -continue oxycodone prn -Continue lidocaine patch -continue Voltaren gel to right back qid (2) Chronic diastolic congestive heart failure: Plan: Stable. Continue current medical management with torsemide, aldactone, KCl, and metoprolol. 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 (no JESSICA) -has pain in right flank but no stones on right -strain urine -no intervention needed at this point -monitor (4) Vaginal candidiasis: Plan: had vaginal itching, some mild vulvar erythema on 03/19 -gave Diflucan 150mg po x 1 and improving symptoms (5) Open wound: Plan: left buttocks after pinched skin during roll onto bedpan observe for infection Consult wound care appreciated-recommend Aquacel Ag and secure with Optifoam, change q3 days and prn Right posterior knee wound-tuck Kaltostat into fold and change every other day (6) Lesion of left [place] kidney: Plan: Left renal cyst seen on ultrasound which appears benign. This can be followed up as an outpatient. No intervention necessary at this time (7) Ambulatory dysfunction: Plan: Continue OT and PT (8) Physical deconditioning: Plan: Continue OT and PT (9) Failure to thrive: Plan: Supportive care. Improved overall (10) CKD (chronic kidney disease): Plan: Monitor intake and output. Periodic lab studies-pecan grower 1.5 on 03/18 (11) GERD (gastroesophageal reflux disease): Plan: Stable. Continue current medical management (12) Insulin-requiring or dependent type II diabetes mellitus: Plan: Stable. Continue current medical management. ADA diet (13) Chronic respiratory failure: Plan: Stable. Continue oxygen use as she does at home. Needs frequent trach care Need to exchange metal trach once weekly-her daughter cleans this for her at home (14) Dyslipidemia: Plan: Stable. Continue current medical management (15) Left knee pain: Plan: She fell at home prior to this admission. Now resolved. No evidence of fracture on x-rays (16) Anemia: Plan: Chronic. Hgb stable on last check at 11 No overt GI bleeding. Occasional CBC (17) Fracture of distal end of right femur: Plan: Supportive care. This is limiting ambulatory capacity. (18) Morbid obesity with BMI of 60.0-69.9, adult: Plan: Recommend significant weight loss Plan Stable overall. Anticipate discharge to home once the lift chair is delivered on March 21 if home caregivers have been arranged-hopefully next week? Admission and Anticipated Discharge Date Admission Date: January 24, 2023 Subjective No complaints. Back pain improved with new air mattress. No stones in urine strainer Physical Exam Constitutional: WD/WN, vitals as above Eyes: + anicteric sclerae Neck: + abnormal visual inspection (trach tube in place) Respiratory: normal respiratory effort, lungs clear to auscultation Cardiovascular: RRR, no murmur, no edema Rate/Rhythm: regular rate and regular rhythm Extremities: + edema (trace ankle edema bilat) Gastrointestinal (Abdomen): normal bowel sounds, soft, nontender, no hepatosplenomegaly Psychiatric: A+Ox3, euthymic affect Results & Data Results & Data Vital Signs (Past 12 Hours) Vital Signs Temp Pulse Resp BP Pulse Ox O2 Del Method 03/20/23 11:10 75 20 95 Room Air 03/20/23 09:35 Room Air 03/20/23 08:01 66 20 96 Room Air 03/20/23 07:45 36.4 C L 67 18 134/68 96 Room Air PG Care Time/CCT Total # of Minutes Spent Total Time Spent with Patient: Total time spent is greater than 50% in coordination of care (as documented) at patient's floor/unit and/or counseling patient: Coding Level of Care Code 94544 SUB INP/OBS CARE 1/25MIN Diagnoses Back pain M54.9 Chronic diastolic congestive heart failure I50.32 Ureterolithiasis N20.1 Vaginal candidiasis B37.31 Open wound T14.8XXA Lesion of left [place] kidney N28.9 Ambulatory dysfunction R26.2 Physical deconditioning R53.81 Failure to thrive CKD (chronic kidney disease) N18.9 GERD (gastroesophageal reflux disease) K21.9 Insulin-requiring or dependent type II diabetes mellitus E11.9; Z79.4 Chronic respiratory failure J96.10 Respiratory failure complication: unspecified whether with hypoxia or hypercapnia Dyslipidemia E78.5 Left knee pain M25.562 Anemia D64.9 Fracture of distal end of right femur S72.401A Morbid obesity with BMI of 60.0-69.9, adult E66.01; Z68.44 (13) Chronic respiratory failure Respiratory failure complication: unspecified whether with hypoxia or hypercapnia Qualified Code(s): J96.10 - Chronic respiratory failure, unspecified whether with hypoxia or hypercapnia
[2023-03-20] MEDS: LIDOCAINE 5% 1 PATCH TD SCH (18:39)
[2023-03-20] MEDS: oxyCODONE HCL IR 5 MG TAB (IMMEDIATE RELEASE) PO PRN (21:26)
[2023-03-20] MEDS: ATORVASTATIN 40 MG TAB PO SCH (21:28)
[2023-03-20] MEDS: MELATONIN 3 MG TAB PO SCH (21:29)
[2023-03-21] MEDS: TORSEMIDE 10 MG TAB PO SCH ×2 (06:27→13:44)
[2023-03-21] MEDS: PANTOprazole 40 MG TAB PO SCH (06:28)
[2023-03-21] MEDS: LEVOTHYROXINE SODIUM 75 MCG TABLET PO SCH (06:29)
[2023-03-21] MEDS: Albuterol HFA 8 GM Inhaler (Combivent Respimat P&T Subs) INH SCH ×4 (07:31→19:54)
[2023-03-21] MEDS: Ipratropium HFA Inhaler (Combivent Respimat P&T Subs) INH SCH ×4 (07:31→19:54)
[2023-03-21] MEDS: ACETAMINOPHEN 500 MG TAB PO SCH ×3 (08:02→22:17)
[2023-03-21] MEDS: METOPROLOL TARTRATE 25 MG TAB PO SCH ×2 (08:02→22:21)
[2023-03-21] MEDS: POTASSIUM CHLORIDE CRTAB 20 MEQ TABCR PO SCH ×2 (08:03→22:20)
[2023-03-21] MEDS: SERTRALINE HCL 50 MG TABLET PO SCH (08:03)
[2023-03-21] MEDS: TOPIRAMATE 100 MG TAB PO SCH (08:03)
[2023-03-21] MEDS: AZITHROMYCIN 250 MG TAB PO SCH (08:03)
[2023-03-21] MEDS: SPIRONOLACTONE 25 MG TAB PO SCH (08:04)
[2023-03-21] MEDS: MAGNESIUM OXIDE 400 MG TAB PO SCH (08:04)
[2023-03-21] MEDS: ASPIRIN 81 MG ECTAB PO SCH (08:05)
[2023-03-21] MEDS: ISOSORBIDE MONO EXTENDED REL 30 MG TABCR PO SCH (08:05)
[2023-03-21] MEDS: DICLOFENAC SOD 1% GEL 100 GM TUBE EXT SCH ×4 (08:06→22:15)
[2023-03-21] MEDS: ENOXAPARIN INJ 40 MG/0.4 ML SYR SQ SCH ×2 (08:06→22:18)
[2023-03-21] MEDS: MUPIROCIN 2% OINT 22 GM TUBE EXT SCH ×2 (08:07→22:15)
[2023-03-21] MEDS: buPROPion SR 100 MG TABCR PO SCH ×2 (08:54→22:16)
[2023-03-21] MEDS: INSULIN, Rapid-Acting PUMP SCH ×4 (08:59→22:22)
--- NOTE | 2023-03-21 16:15 | Hospitalist Progress Note ---
Date of Service March 21, 2023 Assessment & Plan (1) Back pain: Plan: Developed acute right flank pain without inciting injury on 03/15. No hematuria grossly, no urinary symptoms, no h/o kidney stones. Urinalysis negative x 2. CT abd/pel noncon to look for stones is negative for obstructing stones. There is a 3 mm nonobstructing stone in the left kidney which is unrelated to her current pain. Re-reead of CT requested on 03/19--> does have LEFT 4mm distal ureteral stone but no hydronephrosis, would not be causing her right sided back pain. Likely musculoskeletal in nature- relieved with oxycodone, exacerbated by movement. Now resolved with changing to air mattress (2) Chronic diastolic congestive heart failure: Plan: Stable. Continue current medical management with torsemide, aldactone, KCl, and metoprolol. Monitor intake and output (3) Ureterolithiasis: Plan: Left 4 mm distal ureteral stone seen on CT 03/16. 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 Had pain in right flank but no stones on right. No intervention needed at this point (4) Vaginal candidiasis: Plan: had vaginal itching, some mild vulvar erythema on 03/19 -gave Diflucan 150mg po x 1 and symptoms resolved (5) Open wound: Plan: left buttocks after pinched skin during roll onto bedpan. Healing without incident. Wound care consultation appreciated. (6) Lesion of left [place] kidney: Plan: Left renal cyst seen on ultrasound which appears benign. This can be followed up as an outpatient. No intervention necessary at this time (7) Ambulatory dysfunction: Plan: Continue OT and PT (8) Physical deconditioning: Plan: Continue OT and PT (9) Failure to thrive: Plan: Supportive care. Improved overall (10) CKD (chronic kidney disease): Plan: Monitor intake and output. Periodic lab studies- chief librarian work with blind 1.5 on 03/18 (11) GERD (gastroesophageal reflux disease): Plan: Stable. Continue current medical management (12) Insulin-requiring or dependent type II diabetes mellitus: Plan: Stable. Continue current medical management. ADA diet (13) Chronic respiratory failure: Plan: Stable. Continue oxygen use as she does at home. Needs frequent trach care. Need to exchange metal trach once weekly-her daughter cleans this for her at home (14) Dyslipidemia: Plan: Stable. Continue current medical management (15) Left knee pain: Plan: She fell at home prior to this admission. Now resolved. No evidence of fr acture on x-rays (16) Anemia: Plan: Chronic. Hgb stable. No overt GI bleeding. (17) Fracture of distal end of right femur: Plan: Supportive care. This is limiting ambulatory capacity. (18) Morbid obesity with BMI of 60.0-69.9, adult: Plan: Recommend significant weight loss Plan Stable overall. Anticipate discharge to home once the lift chair is delivered if home caregivers have been arranged. Possibly this Tuesday, 03/23 Admission and Anticipated Discharge Date Admission Date: January 24, 2023 Subjective Alert and oriented. Good spirits. No overt distress. Medically stable Review of Systems Review of Systems: Constitutional-no fever or chills. Morbidly obese ENT-no blurred vision, no double vision, no epistaxis, no sore throat Respiratory-no cough, no wheezing, no shortness of breath Cardiac-no palpitations, no chest pain, no syncope GI-no nausea, vomiting, diarrhea, melena, hematochezia -no urinary retention, no urinary incontinence, no dysuria, no hematuria Musculoskeletal-no joint pain, no muscle tenderness Skin-no bruising, no rashes, no pruritus Neuro-no isolated weakness, no paresthesia, no weakness Psych-no depression, no anxiety Physical Exam Physical Exam: General-alert and oriented x3. Morbidly obese HEENT-head atraumatic and normocephalic, pupils equal and reactive to light, extraocular muscles intact Neck-no lymphadenopathy or thyromegaly, trachea midline. Permanent metal tracheostomy in place Chest-diminished breath sounds bilaterally. No wheezing. Cardiac-regular rate and rhythm, normal S1 and S2 Abdomen-normal bowel sounds, nontender, no hepatosplenomegaly Extremities-no cyanosis, clubbing, or edema Neuro-cranial nerves II through XII intact, motor and sensory function within normal limits, strength symmetrical , no focal deficits Psych-normal affect, normal mood Results & Data Results & Data Vital Signs (Past 12 Hours) Vital Signs Temp Pulse Pulse Resp BP Pulse Ox O2 Del Method 03/21/23 15:40 66 18 95 Room Air 03/21/23 09:00 Room Air 03/21/23 11:52 67 14 94 Room Air 03/21/23 07:46 36.5 C 63 20 130/74 95 Room Air 03/21/23 07:30 64 12 94 Room Air FiO2 03/21/23 15:40 03/21/23 09:00 03/21/23 11:52 21 03/21/23 07:46 03/21/23 07:30 21 Laboratory Results 03/16/23 06:10 03/18/23 08:57 PG Care Time/CCT Total # of Minutes Spent Total Time Spent with Patient: Total time spent is greater than 50% in coordination of care (as documented) at patient's floor/unit and/or counseling patient: Coding Level of Care Code 02867 SUB INP/OBS CARE 2/35MIN Diagnoses Back pain M54.9 Chronic diastolic congestive heart failure I50.32 Ureterolithiasis N20.1 Vaginal candidiasis B37.31 Open wound T14.8XXA Lesion of left [place] kidney N28.9 Ambulatory dysfunction R26.2 Physical deconditioning R53.81 Failure to thrive CKD (chronic kidney disease) N18.9 GERD (gastroesophageal reflux disease) K21.9 Insulin-requiring or dependent type II diabetes mellitus E11.9; Z79.4 Chronic respiratory failure J96.10 Respiratory failure complication: unspecified whether with hypoxia or hypercapnia Dyslipidemia E78.5 Left knee pain M25.562 Anemia D64.9 Fracture of distal end of right femur S72.401A Morbid obesity with BMI of 60.0-69.9, adult E66.01; Z68.44 (13) Chronic respiratory failure Respiratory failure complication: unspecified whether with hypoxia or hypercapnia Qualified Code(s): J96.10 - Chronic respiratory failure, unsp ecified whether with hypoxia or hypercapnia
[2023-03-21] MEDS: LIDOCAINE 5% 1 PATCH TD SCH (17:58)
[2023-03-21] MEDS: oxyCODONE HCL IR 5 MG TAB (IMMEDIATE RELEASE) PO PRN (22:12)
[2023-03-21] MEDS: ATORVASTATIN 40 MG TAB PO SCH (22:19)
[2023-03-21] MEDS: MELATONIN 3 MG TAB PO SCH (22:20)
[2023-03-22] MEDS: PANTOprazole 40 MG TAB PO SCH (06:03)
[2023-03-22] MEDS: TORSEMIDE 10 MG TAB PO SCH ×2 (06:03→15:00)
[2023-03-22] MEDS: LEVOTHYROXINE SODIUM 75 MCG TABLET PO SCH (06:04)
[2023-03-22] MEDS: Albuterol HFA 8 GM Inhaler (Combivent Respimat P&T Subs) INH SCH ×4 (07:43→19:17)
[2023-03-22] MEDS: Ipratropium HFA Inhaler (Combivent Respimat P&T Subs) INH SCH ×4 (07:43→19:17)
[2023-03-22] MEDS: POTASSIUM CHLORIDE CRTAB 20 MEQ TABCR PO SCH ×2 (09:24→21:47)
[2023-03-22] MEDS: DICLOFENAC SOD 1% GEL 100 GM TUBE EXT SCH ×4 (09:25→21:43)
[2023-03-22] MEDS: METOPROLOL TARTRATE 25 MG TAB PO SCH ×2 (09:25→21:43)
[2023-03-22] MEDS: MUPIROCIN 2% OINT 22 GM TUBE EXT SCH ×2 (09:25→21:43)
[2023-03-22] MEDS: ISOSORBIDE MONO EXTENDED REL 30 MG TABCR PO SCH (09:26)
[2023-03-22] MEDS: SPIRONOLACTONE 25 MG TAB PO SCH (09:26)
[2023-03-22] MEDS: ENOXAPARIN INJ 40 MG/0.4 ML SYR SQ SCH ×2 (09:27→21:42)
[2023-03-22] MEDS: TOPIRAMATE 100 MG TAB PO SCH (09:27)
[2023-03-22] MEDS: SERTRALINE HCL 50 MG TABLET PO SCH (09:27)
[2023-03-22] MEDS: ASPIRIN 81 MG ECTAB PO SCH (09:27)
[2023-03-22] MEDS: ACETAMINOPHEN 500 MG TAB PO SCH ×3 (09:27→21:46)
[2023-03-22] MEDS: MAGNESIUM OXIDE 400 MG TAB PO SCH (09:28)
[2023-03-22] MEDS: buPROPion SR 100 MG TABCR PO SCH ×2 (09:30→21:44)
[2023-03-22] MEDS: INSULIN, Rapid-Acting PUMP SCH ×4 (10:03→21:50)
--- NOTE | 2023-03-22 17:09 | Hospitalist Progress Note ---
Date of Service March 22, 2023 Assessment & Plan (1) Back pain: Plan: Could possibly be related to recently discovered ureter calculus and colic. No urological procedure indicated. Symptomatic treatment (2) Chronic diastolic congestive heart failure: Plan: Stable. Continue current medical management. Monitor intake and output (3) Ureterolithiasis: Plan: No intervention necessary at this time (4) Vaginal candidiasis: Plan: Resolved with Diflucan therapy (5) Open wound: Plan: On buttock. Continue local care (6) Lesion of left [place] kidney: Plan: Appears to be a benign cyst. No intervention necessary at this time (7) Ambulatory dysfunction: Plan: Known nonunion of right femur fracture. Pain control measures. Hopefully this will eventually heal (8) Physical deconditioning: Plan: Weight loss recommended. Continue therapy (9) Failure to thrive: Plan: Weight loss recommended. Continue therapy (10) CKD (chronic kidney disease): Plan: Monitor intake and output. Serial labs (11) GERD (gastroesophageal reflux disease): Plan: Stable. Continue PPI therapy (12) Insulin-requiring or dependent type II diabetes mellitus: Plan: ADA diet. Basal Lantus. Sliding scale insulin coverage if needed (13) Chronic respiratory failure: Plan: Currently on room air. Stable (14) Dyslipidemia: Plan: Stable. Continue statin therapy (15) Left knee pain: Plan: No fracture noted on x-ray. Now resolved (16) Anemia: Plan: Chronic. No overt blood loss. Serial labs (17) Fracture of distal end of right femur: Plan: Nonunion. Symptomatic care. No surgical intervention per orthopedics. (18) Morbid obesity with BMI of 60.0-69.9, adult: Plan: Weight loss recommended Plan Lift chair has been delivered to her home. When caregivers are arranged she will be discharged back to her home. Admission and Anticipated Discharge Date Admission Date: January 24, 2023 Subjective Alert and oriented. Possible discharge to home tomorrow, March 23, if caregivers can be arranged. Her lift chair has been delivered. Review of Systems Review of Systems: Constitutional-no fever or chills ENT-no blurred vision, no double vision, no epistaxis, no sore throat Respiratory-no cough, no wheezing, no shortness of breath Cardiac-no palpitations, no chest pain, no syncope GI-no nausea, vomiting, diarrhea, melena, hematochezia -no urinary retention, no urinary incontinence, no dysuria, no hematuria Musculoskeletal-no joint pain, no muscle tenderness Skin-no bruising, no rashes, no pruritus Neuro-no isolated weakness, no paresthesia, no weakness Psych-no depression, no anxiety Physical Exam Physical Exam: General-alert and oriented x3, no fevers, no chills. Morbidly obese HEENT-head atraumatic and normocephalic, pupils equal and reactive to light, extraocular muscles intact Neck-no lymphadenopathy or thyromegaly, trachea midline. Permanent metal tracheostomy in place Chest-diminished breath sounds bilaterally. No rales wheezing or rhonchi Cardiac-regular rate and rhythm, normal S1 and S2 Abdomen-normal bowel sounds, nontender, no hepatosplenomegaly Extremities-chronic bilateral lower extremity nonpitting edema Neuro-cranial nerves II through XII intact, motor and sensory function within normal limits, strength symmetrical , no focal deficits Psych-normal affect, normal mood Results & Data Results & Data Vital Signs (Past 12 Hours) Vital Signs Temp Pulse Pulse Resp BP Pulse Ox O2 Del Method 03/22/23 15:14 36.5 C 71 19 126/67 94 Room Air 03/22/23 14:58 72 12 95 Room Air 03/22/23 07:50 Room Air 03/22/23 11:27 61 18 94 Room Air 03/22/23 08:25 36.6 C 67 19 148/83 H 95 Room Air 03/22/23 07:45 63 18 94 Room Air FiO2 03/22/23 15:14 03/22/23 14:58 21 03/22/23 07:50 03/22/23 11:27 03/22/23 08:25 03/22/23 07:45 21 Laboratory Results 03/16/23 06:10 03/18/23 08:57 PG Care Time/CCT Total # of Minutes Spent Total Time Spent with Patient: Total time spent is greater than 50% in coordination of care (as documented) at patient's floor/unit and/or counseling patient: Coding Level of Care Code 50799 SUB INP/OBS CARE 2/35MIN Diagnoses Back pain M54.9 Chronic diastolic congestive heart failure I50.32 Ureterolithiasis N20.1 Vaginal candidiasis B37.31 Open wound T14.8XXA Lesion of left [place] kidney N28.9 Ambulatory dysfunction R26.2 Physical deconditioning R53.81 Failure to thrive CKD (chronic kidney disease) N18.9 GERD (gastroesophageal reflux disease) K21.9 Insulin-requiring or dependent type II diabetes mellitus E11.9; Z79.4 Chronic respiratory failure J96.10 Respiratory failure complication: unspecified whether with hypoxia or hypercapnia Dyslipidemia E78.5 Left knee pain M25.562 Anemia D64.9 Fracture of distal end of right femur S72.401A Morbid obesity with BMI of 60.0-69.9, adult E66.01; Z68.44 (13) Chronic respiratory failure Respiratory failure complication: unspecified whether with hypoxia or hyper capnia Qualified Code(s): J96.10 - Chronic respiratory failure, unspecified whether with hypoxia or hypercapnia
[2023-03-22] MEDS: LIDOCAINE 5% 1 PATCH TD SCH (18:44)
[2023-03-22] MEDS: MELATONIN 3 MG TAB PO SCH (21:45)
[2023-03-22] MEDS: ATORVASTATIN 40 MG TAB PO SCH (21:45)
[2023-03-22] MEDS: oxyCODONE HCL IR 5 MG TAB (IMMEDIATE RELEASE) PO PRN (21:48)
[2023-03-23] MEDS: oxyCODONE HCL IR 5 MG TAB (IMMEDIATE RELEASE) PO PRN ×3 (05:53→21:02)
[2023-03-23] MEDS: LEVOTHYROXINE SODIUM 75 MCG TABLET PO SCH (05:54)
[2023-03-23] MEDS: TORSEMIDE 10 MG TAB PO SCH ×2 (05:55→13:57)
[2023-03-23] MEDS: PANTOprazole 40 MG TAB PO SCH (05:55)
[2023-03-23] MEDS: Albuterol HFA 8 GM Inhaler (Combivent Respimat P&T Subs) INH SCH ×4 (07:42→20:16)
[2023-03-23] MEDS: Ipratropium HFA Inhaler (Combivent Respimat P&T Subs) INH SCH ×4 (07:42→20:16)
--- NOTE | 2023-03-23 08:07 | Hospitalist Progress Note ---
Date of Service March 22, 2023 Assessment & Plan Admission and Anticipated Discharge Date Admission Date: January 24, 2023 Results & Data Results & Data Vital Signs (Past 12 Hours) Vital Signs Temp Pulse Pulse Resp BP Pulse Ox O2 Del Method 03/22/23 15:14 36.5 C 71 19 126/67 94 Room Air 03/22/23 14:58 72 12 95 Room Air 03/22/23 07:50 Room Air 03/22/23 11:27 61 18 94 Room Air 03/22/23 08:25 36.6 C 67 19 148/83 H 95 Room Air 03/22/23 07:45 63 18 94 Room Air FiO2 03/22/23 15:14 03/22/23 14:58 21 03/22/23 07:50 03/22/23 11:27 03/22/23 08:25 03/22/23 07:45 21 PG Care Time/CCT Total # of Minutes Spent Total Time Spent with Patient: Total time spent is greater than 50% in coordination of care (as documented) at patient's floor/unit and/or counseling patient: Coding Level of Care Code 50628 SUB INP/OBS CARE 2/35MIN Diagnoses
[2023-03-23] MEDS: POTASSIUM CHLORIDE CRTAB 20 MEQ TABCR PO SCH ×2 (09:44→21:03)
[2023-03-23] MEDS: ACETAMINOPHEN 500 MG TAB PO SCH ×3 (09:44→21:04)
[2023-03-23] MEDS: METOPROLOL TARTRATE 25 MG TAB PO SCH ×2 (09:45→21:03)
[2023-03-23] MEDS: ISOSORBIDE MONO EXTENDED REL 30 MG TABCR PO SCH (09:46)
[2023-03-23] MEDS: ASPIRIN 81 MG ECTAB PO SCH (09:46)
[2023-03-23] MEDS: SPIRONOLACTONE 25 MG TAB PO SCH (09:46)
[2023-03-23] MEDS: MAGNESIUM OXIDE 400 MG TAB PO SCH (09:46)
[2023-03-23] MEDS: buPROPion SR 100 MG TABCR PO SCH ×2 (09:47→21:02)
[2023-03-23] MEDS: AZITHROMYCIN 250 MG TAB PO SCH (09:47)
[2023-03-23] MEDS: SERTRALINE HCL 50 MG TABLET PO SCH (09:47)
[2023-03-23] MEDS: TOPIRAMATE 100 MG TAB PO SCH (09:47)
[2023-03-23] MEDS: DICLOFENAC SOD 1% GEL 100 GM TUBE EXT SCH ×4 (09:48→21:05)
[2023-03-23] MEDS: ENOXAPARIN INJ 40 MG/0.4 ML SYR SQ SCH ×2 (09:48→21:04)
[2023-03-23] MEDS: MUPIROCIN 2% OINT 22 GM TUBE EXT SCH ×2 (09:49→21:05)
[2023-03-23] MEDS: INSULIN, Rapid-Acting PUMP SCH ×4 (09:52→21:05)
--- NOTE | 2023-03-23 12:44 | Hospitalist Progress Note ---
Date of Service March 23, 2023 Assessment & Plan (1) Back pain: Plan: Appears to be musculoskeletal in nature from the right lumbosacral area. She agrees to a trial of oral prednisone which has been ordered. This does not appear to be ureteral colic. (2) Chronic diastolic congestive heart failure: Plan: Stable. Continue current medical management. Monitor intake and output (3) Ureterolithiasis: Plan: No intervention necessary at this time (4) Vaginal candidiasis: Plan: Resolved with Diflucan therapy (5) Open wound: Plan: On buttock. Continue local care (6) Lesion of left [place] kidney: Plan: Appears to be a benign cyst. No intervention necessary at this time (7) Ambulatory dysfunction: Plan: Known nonunion of right femur fracture. Pain control measures. Hopefully this will eventually heal (8) Physical deconditioning: Plan: Weight loss recommended. Continue therapy (9) Failure to thrive: Plan: Weight loss recommended. Continue therapy (10) CKD (chronic kidney disease): Plan: Monitor intake and output. Serial labs (11) GERD (gastroesophageal reflux disease): Plan: Stable. Continue PPI therapy (12) Insulin-requiring or dependent type II diabetes mellitus: Plan: ADA diet. Basal Lantus. Sliding scale insulin coverage if needed (13) Chronic respiratory failure: Plan: Currently on room air. Stable (14) Dyslipidemia: Plan: Stable. Continue statin therapy (15) Left knee pain: Plan: No fracture noted on x-ray. Now resolved (16) Anemia: Plan: Chronic. No overt blood loss. Serial labs (17) Fracture of distal end of right femur: Plan: Nonunion. Symptomatic care. No surgical intervention per orthopedics. (18) Morbid obesity with BMI of 60.0-69.9, adult: Plan: Weight loss recommended Plan Lift chair has been delivered to her home. When caregivers are arranged she will be discharged back to her home. Admission and Anticipated Discharge Date Admission Date: January 24, 2023 Subjective Alert and oriented. Her right lower back pain is not from ureteral calculus but is palpable and appears to be originating from the right lumbosacral area. She agrees to a trial of oral prednisone therapy which will be weaned off as she improves. Her discharge has been delayed until caregivers can be put in place during the week. Review of Systems Review of Systems: Constitutional-no fever or chills ENT-no blurred vision, no double vision, no epistaxis, no sore throat Respiratory-no cough, no wheezing, no shortness of breath Cardiac-no palpitations, no chest pain, no syncope GI-no nausea, vomiting, diarrhea, melena, hematochezia -no urinary retention, no urinary incontinence, no dysuria, no hematuria Musculoskeletal-right lower back pain Skin-no bruising, no rashes, no pruritus Neuro-no isolated weakness, no paresthesia, no weakness Psych-no depression, no anxiety Physical Exam Physical Exam: General-alert and oriented x3, no fevers, no chills. Morbidly obese HEENT-head atraumatic and normocephalic, pupils equal and reactive to light, extraocular muscles intact Neck-no lymphadenopathy or thyromegaly, trachea midline. Permanent metal tracheostomy in place Chest-diminished breath sounds bilaterally. No rales wheezing or rhonchi Cardiac-regular rate and rhythm, normal S1 and S2 Abdomen-normal bowel sounds, nontender, no hepatosplenomegaly Extremities-chronic bilateral lower extremity nonpitting edema Musculoskeletalright lumbosacral area is tender to palpation Neuro-cranial nerves II through XII intact, motor and sensory function within normal limits, strength symmetrical , no focal deficits Psych-normal affect, normal mood Results & Data Results & Data Vital Signs (Past 12 Hours) Vital Signs Temp Pulse Pulse Resp BP Pulse Ox O2 Del Method 03/23/23 11:10 70 18 94 Room Air 03/23/23 09:45 Room Air 03/23/23 07:53 66 18 95 Room Air 03/23/23 07:27 36.5 C 61 19 147/71 H 95 Room Air Laboratory Results 03/16/23 06:10 03/18/23 08:57 PG Care Time/CCT Total # of Minutes Spent Total Time Spent with Patient: Total time spent is greater than 50% in coordination of care (as documented) at patient's floor/unit and/or counseling patient: Coding Level of Care Code 46624 SUB INP/OBS CARE 3/50MIN Diagnoses Back pain M54.9 Chronic diastolic congestive heart failure I50.32 Ureterolithiasis N20.1 Vaginal candidiasis B37.31 Open wound T14.8XXA Lesion of left [place] kidney N28.9 Ambulatory dysfunction R26.2 Physical deconditioning R53.81 Failure to thrive CKD (chronic kidney disease) N18.9 GERD (gastroesophageal reflux disease) K21.9 Insulin-requiring or dependent type II diabetes mellitus E11.9; Z79.4 Chronic respiratory failure J96.10 Respiratory failure complication: unspecified whether with hypoxia or hypercapnia Dyslipidemia E78.5 Left knee pain M25.562 Anemia D64.9 Fracture of distal end of right femur S72.401A Morbid obesity with BMI of 60.0-69.9, adult E66.01; Z68.44 (13) Chronic respiratory failure Respiratory failure complication: unspecified whether with hypoxia or hypercapnia Qualified Code(s): J96.10 - Chronic respiratory failure, unspecified whether with hypoxia or hypercapnia
[2023-03-23] MEDS: predniSONE 10 MG TABLET PO SCH ×2 (13:57→21:02)
[2023-03-23] MEDS: LIDOCAINE 5% 1 PATCH TD SCH (18:34)
[2023-03-23] MEDS: ATORVASTATIN 40 MG TAB PO SCH (21:02)
[2023-03-23] MEDS: MELATONIN 3 MG TAB PO SCH (21:04)
[2023-03-24] MEDS: LEVOTHYROXINE SODIUM 75 MCG TABLET PO SCH (06:17)
[2023-03-24] MEDS: TORSEMIDE 10 MG TAB PO SCH ×2 (06:17→14:50)
[2023-03-24] MEDS: PANTOprazole 40 MG TAB PO SCH (06:19)
[2023-03-24] MEDS: Ipratropium HFA Inhaler (Combivent Respimat P&T Subs) INH SCH ×4 (07:41→19:23)
[2023-03-24] MEDS: Albuterol HFA 8 GM Inhaler (Combivent Respimat P&T Subs) INH SCH ×4 (07:41→19:23)
[2023-03-24] MEDS: buPROPion SR 100 MG TABCR PO SCH ×2 (08:07→20:30)
[2023-03-24] MEDS: ASPIRIN 81 MG ECTAB PO SCH (08:07)
[2023-03-24] MEDS: predniSONE 10 MG TABLET PO SCH ×3 (08:07→20:31)
[2023-03-24] MEDS: TOPIRAMATE 100 MG TAB PO SCH (08:08)
[2023-03-24] MEDS: SERTRALINE HCL 50 MG TABLET PO SCH (08:08)
[2023-03-24] MEDS: MAGNESIUM OXIDE 400 MG TAB PO SCH (08:08)
[2023-03-24] MEDS: SPIRONOLACTONE 25 MG TAB PO SCH (08:08)
[2023-03-24] MEDS: ISOSORBIDE MONO EXTENDED REL 30 MG TABCR PO SCH (08:08)
[2023-03-24] MEDS: METOPROLOL TARTRATE 25 MG TAB PO SCH ×2 (08:09→20:31)
[2023-03-24] MEDS: POTASSIUM CHLORIDE CRTAB 20 MEQ TABCR PO SCH ×2 (08:09→20:26)
[2023-03-24] MEDS: MUPIROCIN 2% OINT 22 GM TUBE EXT SCH ×2 (08:10→20:25)
[2023-03-24] MEDS: DICLOFENAC SOD 1% GEL 100 GM TUBE EXT SCH ×4 (08:10→20:26)
[2023-03-24] MEDS: ENOXAPARIN INJ 40 MG/0.4 ML SYR SQ SCH ×2 (08:10→20:26)
[2023-03-24] MEDS: ACETAMINOPHEN 500 MG TAB PO SCH ×3 (08:11→20:27)
[2023-03-24] MEDS: INSULIN, Rapid-Acting PUMP SCH ×4 (08:52→20:31)
--- NOTE | 2023-03-24 14:18 | Hospitalist Progress Note ---
Date of Service March 24, 2023 Assessment & Plan (1) Back pain: Plan: Appears to be musculoskeletal in nature from the right lumbosacral area. Oral prednisone has helped considerably. Will eventually taper off. This does not appear to be ureteral colic. (2) Chronic diastolic congestive heart failure: Plan: Stable. Continue current medical management. Monitor intake and output (3) Ureterolithiasis: Plan: No intervention necessary at this time (4) Vaginal candidiasis: Plan: Resolved with Diflucan therapy (5) Open wound: Plan: On buttock. Continue local care. Healing uneventfully (6) Lesion of left [place] kidney: Plan: Appears to be a benign cyst. No intervention necessary at this time (7) Ambulatory dysfunction: Plan: Known nonunion of right femur fracture. Pain control measures. Hopefully this will eventually heal (8) Physical deconditioning: Plan: Weight loss recommended. Continue therapy (9) Failure to thrive: Plan: Weight loss recommended. Continue therapy (10) CKD (chronic kidney disease): Plan: Monitor intake and output. Serial labs (11) GERD (gastroesophageal reflux disease): Plan: Stable. Continue PPI therapy (12) Insulin-requiring or dependent type II diabetes mellitus: Plan: ADA diet. Basal Lantus. Sliding scale insulin coverage if needed (13) Chronic respiratory failure: Plan: Currently on room air. Stable (14) Dyslipidemia: Plan: Stable. Continue statin therapy (15) Left knee pain: Plan: No fracture noted on x-ray. Now resolved (16) Anemia: Plan: Chronic. No overt blood loss. Serial labs (17) Fracture of distal end of right femur: Plan: Nonunion. Symptomatic care. No surgical intervention per orthopedics. (18) Morbid obesity with BMI of 60.0-69.9, adult: Plan: Weight loss recommended Plan Lift chair has been delivered to her home. When caregivers are arranged she will be discharged back to her home. Admission and Anticipated Discharge Date Admission Date: January 24, 2023 Subjective Alert and oriented. No distress. Prednisone is helped considerably with the right lumbosacral discomfort. Will eventually wean off. Glucose 143. Review of Systems Review of Systems: Constitutional-no fever or chills ENT-no blurred vision, no double vision, no epistaxis, no sore throat Respiratory-no cough, no wheezing, no shortness of breath Cardiac-no palpitations, no chest pain, no syncope GI-no nausea, vomiting, diarrhea, melena, hematochezia -no urinary retention, no urinary incontinence, no dysuria, no hematuria Musculoskeletal-right lower back pain has improved considerably with oral prednisone therapy Skin-no bruising, no rashes, no pruritus Neuro-no isolated weakness, no paresthesia, no weakness Psych-no depression, no anxiety Physical Exam Physical Exam: General-alert and oriented x3, no fevers, no chills. Morbidly obese HEENT-head atraumatic and normocephalic, pupils equal and reactive to light, extraocular muscles intact Neck-no lymphadenopathy or thyromegaly, trachea midline. Permanent metal tracheostomy in place Chest-diminished breath sounds bilaterally. No rales wheezing or rhonchi Cardiac-regular rate and rhythm, normal S1 and S2 Abdomen-normal bowel sounds, nontender, no hepatosplenomegaly Extremities-chronic bilateral lower extremity nonpitting edema Musculoskeletalright lumbosacral area tenderness has improved with prednisone therapy Neuro-cranial nerves II through XII intact, motor and sensory function within normal limits, strength symmetrical , no focal deficits Psych-normal affect, normal mood Results & Data Results & Data Vital Signs (Past 12 Hours) Vital Signs Temp Pulse Pulse Resp BP Pulse Ox O2 Del Method 03/24/23 11:05 61 18 95 Room Air 03/24/23 08:30 Room Air 03/24/23 07:43 64 18 94 Room Air 03/24/23 07:09 36.4 C L 65 19 137/75 94 Room Air Laboratory Results 03/16/23 06:10 03/18/23 08:57 PG Care Time/CCT Total # of Minutes Spent Total Time Spent with Patient: Total time spent is greater than 50% in coordination of care (as documented) at patient's floor/unit and/or counseling patient: Coding Level of Care Code 43646 SUB INP/OBS CARE 2/35MIN Diagnoses Back pain M54.9 Chronic diastolic congestive heart failure I50.32 Ureterolithiasis N20.1 Vaginal candidiasis B37.31 Open wound T14.8XXA Lesion of left [place] kidney N28.9 Ambulatory dysfunction R26.2 Physical deconditioning R53.81 Failure to thrive CKD (chronic kidney disease) N18.9 GERD (gastroesophageal reflux disease) K21.9 Insulin-requiring or dependent type II diabetes mellitus E11.9; Z79.4 Chronic respiratory failure J96.10 Respiratory failure complication: unspecified whether with hypoxia or hypercapnia Dyslipidemia E78.5 Left knee pain M25.562 Anemia D64.9 Fracture of distal end of right femur S72.401A Morbid obesity with BMI of 60.0-69.9, adult E66.01; Z68.44 (13) Chronic respiratory failure Respiratory failure complication: unspecified whether with hypoxia or hypercapnia Qualified Code(s): J96.10 - Chronic respiratory failure, unsp ecified whether with hypoxia or hypercapnia
[2023-03-24] MEDS: LIDOCAINE 5% 1 PATCH TD SCH (17:49)
[2023-03-24] MEDS: oxyCODONE HCL IR 5 MG TAB (IMMEDIATE RELEASE) PO PRN (20:27)
[2023-03-24] MEDS: MELATONIN 3 MG TAB PO SCH (20:27)
[2023-03-24] MEDS: ATORVASTATIN 40 MG TAB PO SCH (20:30)
[2023-03-25] MEDS: PANTOprazole 40 MG TAB PO SCH (06:02)
[2023-03-25] MEDS: LEVOTHYROXINE SODIUM 75 MCG TABLET PO SCH (06:02)
[2023-03-25] MEDS: TORSEMIDE 10 MG TAB PO SCH ×2 (06:04→13:49)
[2023-03-25] MEDS: oxyCODONE HCL IR 5 MG TAB (IMMEDIATE RELEASE) PO PRN ×2 (06:06→16:09)
[2023-03-25] MEDS: Albuterol HFA 8 GM Inhaler (Combivent Respimat P&T Subs) INH SCH ×4 (07:39→19:19)
[2023-03-25] MEDS: Ipratropium HFA Inhaler (Combivent Respimat P&T Subs) INH SCH ×4 (07:40→19:19)
[2023-03-25] MEDS: ENOXAPARIN INJ 40 MG/0.4 ML SYR SQ SCH ×2 (08:06→21:06)
[2023-03-25] MEDS: MUPIROCIN 2% OINT 22 GM TUBE EXT SCH ×2 (08:07→21:07)
[2023-03-25] MEDS: ACETAMINOPHEN 500 MG TAB PO SCH ×3 (08:07→21:03)
[2023-03-25] MEDS: SERTRALINE HCL 50 MG TABLET PO SCH (08:07)
[2023-03-25] MEDS: DICLOFENAC SOD 1% GEL 100 GM TUBE EXT SCH ×4 (08:07→21:06)
[2023-03-25] MEDS: SPIRONOLACTONE 25 MG TAB PO SCH (08:08)
[2023-03-25] MEDS: ISOSORBIDE MONO EXTENDED REL 30 MG TABCR PO SCH (08:08)
[2023-03-25] MEDS: ASPIRIN 81 MG ECTAB PO SCH (08:08)
[2023-03-25] MEDS: MAGNESIUM OXIDE 400 MG TAB PO SCH (08:08)
[2023-03-25] MEDS: TOPIRAMATE 100 MG TAB PO SCH (08:09)
[2023-03-25] MEDS: predniSONE 10 MG TABLET PO SCH ×2 (08:09→21:04)
[2023-03-25] MEDS: METOPROLOL TARTRATE 25 MG TAB PO SCH ×2 (08:09→21:04)
[2023-03-25] MEDS: buPROPion SR 100 MG TABCR PO SCH ×2 (08:09→21:06)
[2023-03-25] MEDS: POTASSIUM CHLORIDE CRTAB 20 MEQ TABCR PO SCH ×2 (08:10→21:02)
[2023-03-25] MEDS: AZITHROMYCIN 250 MG TAB PO SCH (08:10)
[2023-03-25] MEDS: INSULIN, Rapid-Acting PUMP SCH ×4 (10:45→21:07)
--- NOTE | 2023-03-25 14:30 | Hospitalist Progress Note ---
Date of Service March 25, 2023 Assessment & Plan (1) Back pain: Plan: Appears to be musculoskeletal in nature from the right lumbosacral area. Oral prednisone has helped considerably. Will eventually taper off. This does not appear to be ureteral colic. (2) Chronic diastolic congestive heart failure: Plan: Stable. Continue current medical management. Monitor intake and output (3) Ureterolithiasis: Plan: No intervention necessary at this time (4) Vaginal candidiasis: Plan: Resolved with Diflucan therapy (5) Open wound: Plan: On buttock. Continue local care. Healing uneventfully (6) Lesion of left [place] kidney: Plan: Appears to be a benign cyst. No intervention necessary at this time (7) Ambulatory dysfunction: Plan: Known nonunion of right femur fracture. Pain control measures. Hopefully this will eventually heal (8) Physical deconditioning: Plan: Weight loss recommended. Continue therapy (9) Failure to thrive: Plan: Weight loss recommended. Continue therapy (10) CKD (chronic kidney disease): Plan: Monitor intake and output. Serial labs (11) GERD (gastroesophageal reflux disease): Plan: Stable. Continue PPI therapy (12) Insulin-requiring or dependent type II diabetes mellitus: Plan: ADA diet. Basal Lantus. Sliding scale insulin coverage if needed (13) Chronic respiratory failure: Plan: Currently on room air. Stable (14) Dyslipidemia: Plan: Stable. Continue statin therapy (15) Left knee pain: Plan: No fracture noted on x-ray. Now resolved (16) Anemia: Plan: Chronic. No overt blood loss. Serial labs (17) Fracture of distal end of right femur: Plan: Nonunion. Symptomatic care. No surgical intervention per orthopedics. (18) Morbid obesity with BMI of 60.0-69.9, adult: Plan: Weight loss recommended Plan Lift chair has been delivered to her home. When caregivers are arranged she will be discharged back to her home. Admission and Anticipated Discharge Date Admission Date: January 24, 2023 Subjective Alert and oriented. No new problems. Right lumbosacral discomfort has nearly resolved. Prednisone has been tapered down. Glucose controlled at 125 Review of Systems Review of Systems: Constitutional-no fever or chills ENT-no blurred vision, no double vision, no epistaxis, no sore throat Respiratory-no cough, no wheezing, no shortness of breath Cardiac-no palpitations, no chest pain, no syncope GI-no nausea, vomiting, diarrhea, melena, hematochezia -no urinary retention, no urinary incontinence, no dysuria, no hematuria Musculoskeletal-right lower back pain has improved considerably with oral prednisone therapy Skin-no bruising, no rashes, no pruritus Neuro-no isolated weakness, no paresthesia, no weakness Psych-no depression, no anxiety Physical Exam Physical Exam: General-alert and oriented x3, no fevers, no chills. Morbidly obese HEENT-head atraumatic and normocephalic, pupils equal and reactive to light, extraocular muscles intact Neck-no lymphadenopathy or thyromegaly, trachea midline. Permanent metal tracheostomy in place Chest-diminished breath sounds bilaterally. No rales wheezing or rhonchi Cardiac-regular rate and rhythm, normal S1 and S2 Abdomen-normal bowel sounds, nontender, no hepatosplenomegaly Extremities-chronic bilateral lower extremity nonpitting edema Musculoskeletalright lumbosacral area tenderness has improved with prednisone therapy Neuro-cranial nerves II through XII intact, motor and sensory function within normal limits, strength symmetrical , no focal deficits Psych-normal affect, normal mood Results & Data Results & Data Vital Signs (Past 12 Hours) Vital Signs Temp Pulse Pulse Pulse Resp BP Pulse Ox 03/25/23 11:57 03/25/23 10:50 68 18 94 03/25/23 07:40 57 L 16 97 03/25/23 07:13 36.4 C L 62 18 138/81 94 O2 Del Method 03/25/23 11:57 Room Air 03/25/23 10:50 Room Air 03/25/23 07:40 Room Air 03/25/23 07:13 Room Air Laboratory Results 03/16/23 06:10 03/18/23 08:57 PG Care Time/CCT Total # of Minutes Spent Total Time Spent with Patient: Total time spent is greater than 50% in coordination of care (as documented) at patient's floor/unit and/or counseling patient: Coding Level of Care Code 35902 SUB INP/OBS CARE 3/50MIN Diagnoses Back pain M54.9 Chronic diastolic congestive heart failure I50.32 Ureterolithiasis N20.1 Vaginal candidiasis B37.31 Open wound T14.8XXA Lesion of left [place] kidney N28.9 Ambulatory dysfunction R26.2 Physical deconditioning R53.81 Failure to thrive CKD (chronic kidney disease) N18.9 GERD (gastroesophageal reflux disease) K21.9 Insulin-requiring or dependent type II diabetes mellitus E11.9; Z79.4 Chronic respiratory failure J96.10 Respiratory failure complication: unspecified whether with hypoxia or hypercapnia Dyslipidemia E78.5 Left knee pain M25.562 Anemia D64.9 Fracture of distal end of right femur S72.401A Morbid obesity with BMI of 60.0-69.9, adult E66.01; Z68.44 (13) Chronic respiratory failure Respiratory failure complication: unspecified whether with hypoxia or hypercapnia Qualified Code(s): J96.10 - Chronic respiratory failure, unspecified whether with hypoxia or hypercapnia
[2023-03-25] MEDS: LIDOCAINE 5% 1 PATCH TD SCH (18:19)
[2023-03-25] MEDS: MELATONIN 3 MG TAB PO SCH (21:03)
[2023-03-25] MEDS: ATORVASTATIN 40 MG TAB PO SCH (21:05)
[2023-03-26] MEDS: TORSEMIDE 10 MG TAB PO SCH ×2 (06:12→14:01)
[2023-03-26] MEDS: LEVOTHYROXINE SODIUM 75 MCG TABLET PO SCH (06:12)
[2023-03-26] MEDS: PANTOprazole 40 MG TAB PO SCH (06:12)
[2023-03-26] MEDS: Albuterol HFA 8 GM Inhaler (Combivent Respimat P&T Subs) INH SCH ×4 (08:06→20:08)
[2023-03-26] MEDS: Ipratropium HFA Inhaler (Combivent Respimat P&T Subs) INH SCH ×4 (08:07→20:08)
[2023-03-26] MEDS: ENOXAPARIN INJ 40 MG/0.4 ML SYR SQ SCH ×2 (09:43→21:17)
[2023-03-26] MEDS: buPROPion SR 100 MG TABCR PO SCH ×2 (09:44→21:13)
[2023-03-26] MEDS: SPIRONOLACTONE 25 MG TAB PO SCH (09:44)
[2023-03-26] MEDS: ASPIRIN 81 MG ECTAB PO SCH (09:44)
[2023-03-26] MEDS: predniSONE 10 MG TABLET PO SCH ×2 (09:44→21:18)
[2023-03-26] MEDS: MAGNESIUM OXIDE 400 MG TAB PO SCH (09:44)
[2023-03-26] MEDS: TOPIRAMATE 100 MG TAB PO SCH (09:44)
[2023-03-26] MEDS: SERTRALINE HCL 50 MG TABLET PO SCH (09:44)
[2023-03-26] MEDS: POTASSIUM CHLORIDE CRTAB 20 MEQ TABCR PO SCH ×2 (09:44→21:14)
[2023-03-26] MEDS: ISOSORBIDE MONO EXTENDED REL 30 MG TABCR PO SCH (09:44)
[2023-03-26] MEDS: ACETAMINOPHEN 500 MG TAB PO SCH ×3 (09:44→21:13)
[2023-03-26] MEDS: METOPROLOL TARTRATE 25 MG TAB PO SCH ×2 (09:45→21:16)
[2023-03-26] MEDS: MUPIROCIN 2% OINT 22 GM TUBE EXT SCH ×2 (09:48→21:18)
[2023-03-26] MEDS: DICLOFENAC SOD 1% GEL 100 GM TUBE EXT SCH ×4 (09:48→21:17)
[2023-03-26] MEDS: INSULIN, Rapid-Acting PUMP SCH ×4 (10:22→21:18)
--- NOTE | 2023-03-26 12:48 | Hospitalist Progress Note ---
Date of Service March 26, 2023 Assessment & Plan (1) Back pain: Plan: Appears to be musculoskeletal in nature from the right lumbosacral area. Oral prednisone has helped considerably. Will eventually taper off. Will decrease prednisone dose again tomorrow, March 27. This does not appear to be ureteral colic. (2) Chronic diastolic congestive heart failure: Plan: Stable. Continue current medical management. Monitor intake and output (3) Ureterolithiasis: Plan: No intervention necessary at this time (4) Vaginal candidiasis: Plan: Resolved with Diflucan therapy (5) Open wound: Plan: On buttock. Continue local care. Healing uneventfully (6) Lesion of left [place] kidney: Plan: Appears to be a benign cyst. No intervention necessary at this time (7) Ambulatory dysfunction: Plan: Known nonunion of right femur fracture. Pain control measures. Hopefully this will eventually heal (8) Physical deconditioning: Plan: Weight loss recommended. Continue therapy (9) Failure to thrive: Plan: Weight loss recommended. Continue therapy (10) CKD (chronic kidney disease): Plan: Monitor intake and output. Serial labs (11) GERD (gastroesophageal reflux disease): Plan: Stable. Continue PPI therapy (12) Insulin-requiring or dependent type II diabetes mellitus: Plan: ADA diet. Basal Lantus. Sliding scale insulin coverage if needed (13) Chronic respiratory failure: Plan: Currently on room air. Stable (14) Dyslipidemia: Plan: Stable. Continue statin therapy (15) Left knee pain: Plan: No fracture noted on x-ray. Now resolved (16) Anemia: Plan: Chronic. No overt blood loss. Serial labs (17) Fracture of distal end of right femur: Plan: Nonunion. Symptomatic care. No surgical intervention per orthopedics. (18) Morbid obesity with BMI of 60.0-69.9, adult: Plan: Weight loss recommended Plan Lift chair has been delivered to her home. When caregivers are arranged she will be discharged back to her home. Admission and Anticipated Discharge Date Admission Date: January 24, 2023 Subjective Alert and oriented. No new problems. Prednisone dosage was tapered down yesterday and will be tapered down again tomorrow, March 27. Glucose stable at 101. 96% saturation on room air. No new problems. Review of Systems Review of Systems: Constitutional-no fever or chills ENT-no blurred vision, no double vision, no epistaxis, no sore throat Respiratory-no cough, no wheezing, no shortness of breath Cardiac-no palpitations, no chest pain, no syncope GI-no nausea, vomiting, diarrhea, melena, hematochezia -no urinary retention, no urinary incontinence, no dysuria, no hematuria Musculoskeletal-right lower back pain has improved considerably with oral prednisone therapy Skin-no bruising, no rashes, no pruritus Neuro-no isolated weakness, no paresthesia, no weakness Psych-no depression, no anxiety Physical Exam Physical Exam: General-alert and oriented x3, no fevers, no chills. Morbidly obese HEENT-head atraumatic and normocephalic, pupils equal and reactive to light, extraocular muscles intact Neck-no lymphadenopathy or thyromegaly, trachea midline. Permanent metal tracheostomy in place Chest-diminished breath sounds bilaterally. No rales wheezing or rhonchi Cardiac-regular rate and rhythm, normal S1 and S2 Abdomen-normal bowel sounds, nontender, no hepatosplenomegaly Extremities-chronic bilateral lower extremity nonpitting edema Musculoskeletalright lumbosacral area tenderness has improved with prednisone therapy Neuro-cranial nerves II through XII intact, motor and sensory function within normal limits, strength symmetrical , no focal deficits Psych-normal affect, normal mood Results & Data Results & Data Vital Signs (Past 12 Hours) Vital Signs Temp Pulse Pulse Resp BP Pulse Ox O2 Del Method 03/26/23 12:01 69 20 95 Room Air 03/26/23 08:24 76 14 96 Room Air 03/26/23 07:45 36.4 C L 63 16 134/77 96 Room Air FiO2 03/26/23 12:01 03/26/23 08:24 21 03/26/23 07:45 Laboratory Results 03/16/23 06:10 03/18/23 08:57 PG Care Time/CCT Total # of Minutes Spent Total Time Spent with Patient: Total time spent is greater than 50% in coordination of care (as documented) at patient's floor/unit and/or counseling patient: Coding Level of Care Code 56119 SUB INP/OBS CARE 2/35MIN Diagnoses Back pain M54.9 Chronic diastolic congestive heart failure I50.32 Ureterolithiasis N20.1 Vaginal candidiasis B37.31 Open wound T14.8XXA Lesion of left [place] kidney N28.9 Ambulatory dysfunction R26.2 Physical deconditioning R53.81 Failure to thrive CKD (chronic kidney disease) N18.9 GERD (gastroesophageal reflux disease) K21.9 Insulin-requiring or dependent type II diabetes mellitus E11.9; Z79.4 Chronic respiratory failure J96.10 Respiratory failure complication: unspecified whether with hypoxia or hypercapnia Dyslipidemia E78.5 Left knee pain M25.562 Anemia D64.9 Fracture of distal end of right femur S72.401A Morbid obesity with BMI of 60.0-69.9, adult E66.01; Z68.44 (13) Chronic respiratory failure Respiratory failure complication: unspecified whether with hypoxia or hypercapnia Qualified Code(s): J96.10 - Chronic respiratory failure, unspecified whether with hypoxia or hypercapnia
[2023-03-26] MEDS: LIDOCAINE 5% 1 PATCH TD SCH (17:30)
[2023-03-26] MEDS: MELATONIN 3 MG TAB PO SCH (21:14)
[2023-03-26] MEDS: ATORVASTATIN 40 MG TAB PO SCH (21:17)
[2023-03-27] MEDS: TORSEMIDE 10 MG TAB PO SCH ×2 (06:02→14:14)
[2023-03-27] MEDS: PANTOprazole 40 MG TAB PO SCH (06:02)
[2023-03-27] MEDS: LEVOTHYROXINE SODIUM 75 MCG TABLET PO SCH (06:02)
[2023-03-27] MEDS: Albuterol HFA 8 GM Inhaler (Combivent Respimat P&T Subs) INH SCH ×4 (07:34→20:18)
[2023-03-27] MEDS: Ipratropium HFA Inhaler (Combivent Respimat P&T Subs) INH SCH ×4 (07:34→20:19)
[2023-03-27] MEDS: SERTRALINE HCL 50 MG TABLET PO SCH (08:47)
[2023-03-27] MEDS: buPROPion SR 100 MG TABCR PO SCH ×2 (08:47→21:40)
[2023-03-27] MEDS: ISOSORBIDE MONO EXTENDED REL 30 MG TABCR PO SCH (08:47)
[2023-03-27] MEDS: ACETAMINOPHEN 500 MG TAB PO SCH ×3 (08:48→21:39)
[2023-03-27] MEDS: TOPIRAMATE 100 MG TAB PO SCH (08:48)
[2023-03-27] MEDS: METOPROLOL TARTRATE 25 MG TAB PO SCH ×2 (08:48→21:42)
[2023-03-27] MEDS: SPIRONOLACTONE 25 MG TAB PO SCH (08:48)
[2023-03-27] MEDS: MAGNESIUM OXIDE 400 MG TAB PO SCH (08:48)
[2023-03-27] MEDS: ASPIRIN 81 MG ECTAB PO SCH (08:48)
[2023-03-27] MEDS: POTASSIUM CHLORIDE CRTAB 20 MEQ TABCR PO SCH ×2 (08:49→21:44)
[2023-03-27] MEDS: predniSONE 10 MG TABLET PO SCH (08:49)
[2023-03-27] MEDS: INSULIN, Rapid-Acting PUMP SCH ×4 (09:07→21:46)
[2023-03-27] MEDS: DICLOFENAC SOD 1% GEL 100 GM TUBE EXT SCH ×4 (10:03→21:41)
[2023-03-27] MEDS: ENOXAPARIN INJ 40 MG/0.4 ML SYR SQ SCH ×2 (10:03→21:41)
[2023-03-27] MEDS: MUPIROCIN 2% OINT 22 GM TUBE EXT SCH ×2 (10:04→21:44)
--- NOTE | 2023-03-27 11:52 | Hospitalist Progress Note ---
Date of Service March 27, 2023 Assessment & Plan (1) Back pain: Plan: Appears to be musculoskeletal in nature from the right lumbosacral area. Oral prednisone has helped considerably. Will eventually taper off. Prednisone further taper down today , March 27, and can be discontinued completely in 2 days. This does not appear to be ureteral colic. (2) Chronic diastolic congestive heart failure: Plan: Stable. Continue current medical management. Monitor intake and output (3) Ureterolithiasis: Plan: No intervention necessary at this time (4) Vaginal candidiasis: Plan: Resolved with Diflucan therapy (5) Open wound: Plan: On buttock. Continue local care. Healing uneventfully (6) Lesion of left [place] kidney: Plan: Appears to be a benign cyst. No intervention necessary at this time (7) Ambulatory dysfunction: Plan: Known nonunion of right femur fracture. Pain control measures. Hopefully this will eventually heal (8) Physical deconditioning: Plan: Weight loss recommended. Continue therapy (9) Failure to thrive: Plan: Weight loss recommended. Continue therapy (10) CKD (chronic kidney disease): Plan: Monitor intake and output. Serial labs (11) GERD (gastroesophageal reflux disease): Plan: Stable. Continue PPI therapy (12) Insulin-requiring or dependent type II diabetes mellitus: Plan: ADA diet. Basal Lantus. Sliding scale insulin coverage if needed. Glucose levels are slightly higher than usual due to prednisone therapy but will return to baseline as prednisone is weaned off (13) Chronic respiratory failure: Plan: Currently on room air. Stable (14) Dyslipidemia: Plan: Stable. Continue statin therapy (15) Left knee pain: Plan: No fracture noted on x-ray. Now resolved (16) Anemia: Plan: Chronic. No overt blood loss. Serial labs (17) Fracture of distal end of right femur: Plan: Nonunion. Symptomatic care. No surgical intervention per orthopedics. (18) Morbid obesity with BMI of 60.0-69.9, adult: Plan: Weight loss recommended Plan Lift chair has been delivered to her home. When caregivers are arranged she will be discharged back to her home. Admission and Anticipated Discharge Date Admission Date: January 24, 2023 Subjective Alert and oriented. No new problems. Mild hyperglycemia has developed from the oral prednisone therapy which should resolve back to baseline as prednisone is tapered off. Prednisone has been further down titrated today, March 27 and can be discontinued in 2 days. Right lumbosacral discomfort has nearly totally resolved. Review of Systems Review of Systems: Constitutional-no fever or chills ENT-no blurred vision, no double vision, no epistaxis, no sore throat Respiratory-no cough, no wheezing, no shortness of breath Cardiac-no palpitations, no chest pain, no syncope GI-no nausea, vomiting, diarrhea, melena, hematochezia -no urinary retention, no urinary incontinence, no dysuria, no hematuria Musculoskeletal-right lower back pain has improved considerably with oral prednisone therapy Skin-no bruising, no rashes, no pruritus Neuro-no isolated weakness, no paresthesia, no weakness Psych-no depression, no anxiety Physical Exam Physical Exam: General-alert and oriented x3, no fevers, no chills. Morbidly obese HEENT-head atraumatic and normocephalic, pupils equal and reactive to light, extraocular muscles intact Neck-no lymphadenopathy or thyromegaly, trachea midline. Permanent metal tracheostomy in place Chest-diminished breath sounds bilaterally. No rales wheezing or rhonchi Cardiac-regular rate and rhythm, normal S1 and S2 Abdomen-normal bowel sounds, nontender, no hepatosplenomegaly Extremities-chronic bilateral lower extremity nonpitting edema Musculoskeletalright lumbosacral area tenderness has improved with prednisone therapy Neuro-cranial nerves II through XII intact, motor and sensory function within normal limits, strength symmetrical , no focal deficits Psych-normal affect, normal mood Results & Data Results & Data Vital Signs (Past 12 Hours) Vital Signs Temp Pulse Pulse Resp BP Pulse Ox O2 Del Method 03/27/23 11:27 67 19 95 Room Air 03/27/23 08:10 Room Air 03/27/23 08:27 37 C 87 20 125/68 96 Room Air 03/27/23 07:45 65 16 94 Room Air Laboratory Results 03/16/23 06:10 03/18/23 08:57 PG Care Time/CCT Total # of Minutes Spent Total Time Spent with Patient: Total time spent is greater than 50% in coordination of care (as documented) at patient's floor/unit and/or counseling patient: Coding Level of Care Code 29229 SUB INP/OBS CARE 3/50MIN Diagnoses Back pain M54.9 Chronic diastolic congestive heart failure I50.32 Ureterolithiasis N20.1 Vaginal candidiasis B37.31 Open wound T14.8XXA Lesion of left [place] kidney N28.9 Ambulatory dysfunction R26.2 Physical deconditioning R53.81 Failure to thrive CKD (chronic kidney disease) N18.9 GERD (gastroesophageal reflux disease) K21.9 Insulin-requiring or dependent type II diabetes mellitus E11.9; Z79.4 Chronic respiratory failure J96.10 Respiratory failure complication: unspecified whether with hypoxia or hypercapnia Dyslipidemia E78.5 Left knee pain M25.562 Anemia D64.9 Fracture of distal end of right femur S72.401A Morbid obesity with BMI of 60.0-69.9, adult E66.01; Z68.44 (13) Chronic respiratory failure Respiratory failure complication: unspecified whether with hypoxia or hypercapnia Qualified Code(s): J96.10 - Chronic respiratory failure, unspecified whether with hypoxia or hypercapnia
[2023-03-27] MEDS: LIDOCAINE 5% 1 PATCH TD SCH (18:13)
[2023-03-27] MEDS: ATORVASTATIN 40 MG TAB PO SCH (21:40)
[2023-03-27] MEDS: MELATONIN 3 MG TAB PO SCH (21:42)
[2023-03-28] MEDS: LEVOTHYROXINE SODIUM 75 MCG TABLET PO SCH (06:37)
[2023-03-28] MEDS: PANTOprazole 40 MG TAB PO SCH (06:37)
[2023-03-28] MEDS: TORSEMIDE 10 MG TAB PO SCH ×2 (06:37→14:35)
[2023-03-28] MEDS: oxyCODONE HCL IR 5 MG TAB (IMMEDIATE RELEASE) PO PRN ×2 (07:27→20:24)
[2023-03-28] MEDS: Ipratropium HFA Inhaler (Combivent Respimat P&T Subs) INH SCH ×4 (07:47→19:16)
[2023-03-28] MEDS: Albuterol HFA 8 GM Inhaler (Combivent Respimat P&T Subs) INH SCH ×4 (07:47→19:16)
[2023-03-28] MEDS: INSULIN, Rapid-Acting PUMP SCH ×4 (08:58→20:33)
[2023-03-28] MEDS: ISOSORBIDE MONO EXTENDED REL 30 MG TABCR PO SCH (09:00)
[2023-03-28] MEDS: predniSONE 10 MG TABLET PO SCH (09:00)
[2023-03-28] MEDS: SERTRALINE HCL 50 MG TABLET PO SCH (09:00)
[2023-03-28] MEDS: AZITHROMYCIN 250 MG TAB PO SCH (09:00)
[2023-03-28] MEDS: TOPIRAMATE 100 MG TAB PO SCH (09:01)
[2023-03-28] MEDS: MAGNESIUM OXIDE 400 MG TAB PO SCH (09:01)
[2023-03-28] MEDS: POTASSIUM CHLORIDE CRTAB 20 MEQ TABCR PO SCH ×2 (09:01→20:24)
[2023-03-28] MEDS: ASPIRIN 81 MG ECTAB PO SCH (09:01)
[2023-03-28] MEDS: METOPROLOL TARTRATE 25 MG TAB PO SCH ×2 (09:01→20:22)
[2023-03-28] MEDS: SPIRONOLACTONE 25 MG TAB PO SCH (09:01)
[2023-03-28] MEDS: ACETAMINOPHEN 500 MG TAB PO SCH ×3 (09:02→20:22)
[2023-03-28] MEDS: ENOXAPARIN INJ 40 MG/0.4 ML SYR SQ SCH ×2 (09:02→20:24)
[2023-03-28] MEDS: buPROPion SR 100 MG TABCR PO SCH ×2 (09:03→20:23)
[2023-03-28] MEDS: DICLOFENAC SOD 1% GEL 100 GM TUBE EXT SCH ×4 (09:03→20:25)
[2023-03-28] MEDS: MUPIROCIN 2% OINT 22 GM TUBE EXT SCH ×2 (09:04→20:32)
[2023-03-28] MEDS: LIDOCAINE 5% 1 PATCH TD SCH (17:45)
--- NOTE | 2023-03-28 19:11 | Hospitalist Progress Note ---
Date of Service March 28, 2023 Assessment & Plan (1) Ureterolithiasis: Plan: left sided 4mm stone. previous imaging had shown it was in the distal ureter. patient actively passing the stone - voiding tiny remnants of such. right flank pain - felt to be musculoskeletal - improving with steroids. decrease prednisone to 5mg daily starting tomorrow. (2) Back pain: Plan: right flank/right paraspinal back pain - improved. cont prednisone but wean to 5mg/day starting in am. (3) Chronic diastolic congestive heart failure: Plan: compensated cont torsemide BID. cont aldactone. cont metoprolol BID. (4) Lesion of left [place] kidney: Plan: 03/25/22 CT of femur showed the following -- "Partially imaged 2.7 cm left renal lesion is new from 2006. This could be correlated with a follow-up ultrasound to exclude renal cell carcinoma." u/s and CT abd/pelvis recently both suggest the lesion is a simple cyst only. (5) Ambulatory dysfunction: Plan: 2nd to severe deconditioning, prolonged institutionalization starting in spring 2021 after suffering a right distal femur fracture, morbid obesity, limited weight bearing status to RLE, etc. Cont PT/OT. (6) Physical deconditioning: Plan: PT/OT ideally needs SNF placement but plan is for home with caregivers, lift chair, bedside commode, home health services, etc this is at the pt's request (7) Failure to thrive: Plan: Multiple falls at home prompted the patient to be readmitted on 01/24/23. Previous to that she had had a prolonged, several month stay trying to secure SNF placement. She ultimately ended up at home with numerous services in place - but, again, did poorly over her brief time at home including multiple falls. She cont with PT/OT while here and will have plenty of services upon d/c to home. (8) CKD (chronic kidney disease): Plan: stage 4 repeat BMP am for stability (9) GERD (gastroesophageal reflux disease): Plan: cont PPI (10) Insulin-requiring or dependent type II diabetes mellitus: Plan: Continue home insulin pump. EXCELLENT control on pump. Most BSGs all <200 (just occasional highs recently due to prednisone). check a1c with AM blood draw tomorrow. (11) Chronic respiratory failure: Plan: stable, no issues. uses HS O2 via trach. She declines consideration of transition from metal trach to plastic trach. Continue azithro 250 mg MWF for prophylaxis (12) Dyslipidemia: Plan: Continue home statin (13) Left knee pain: Plan: Continue oxycodone as needed for pain. X-rays negative for fracture. Continue physical therapy (14) Anemia: Plan: mild, normocytic anemia can stop folate - last level 02/18 was normal last Hb just shy of 12 on 02/18 repeat H/H 03/07 stable check cbc in am for stability (15) Fracture of distal end of right femur: Plan: initial fracture was March 2022 transferred to [facility] for such - nonoperative management advised has essentially been non weight-bearing on the RLE since then which has led to significant morbidity and #1 above repeat x-rays 03/02/23 of right femur/knee with no major changes since the last imaging cont oxycodone prn cont tylenol 1gm TID cont voltaren gel qid (16) Morbid obesity with BMI of 60.0-69.9, adult: Plan: BMI 60-65 Plan appreciate social work assistance for dispo planning Admission and Anticipated Discharge Date Admission Date: January 24, 2023 Subjective patient reports she is passing small bits of her left-sided kidney stone right flank pain is improving she is eating well no change in breathing, chronic cough, etc no diarrhea voiding fine Review of Systems Review of Systems: gen - no fevers or chills cv - no chest pain pulm - mild BARGER GI - no vomiting Physical Exam Physical Exam: gen - NAD, laying in bed, obese mouth - MMM neck - metal trach in place - clean heart - RRR, s1 s2, no murmur lungs - CTA b/l abd - soft obese NT BS+ ND ext - no peripheral edema, pulses 2+ b/l musculo - right flank tenderness present - mild to palpation only Results & Data Results & Data Vital Signs (Past 12 Hours) Vital Signs Temp Pulse Pulse Resp BP BP Pulse Ox 03/28/23 15:42 36.9 C 91 H 16 116/67 92 03/28/23 15:01 76 18 95 03/28/23 10:49 62 19 96 03/28/23 07:54 03/28/23 07:47 36.5 C 63 16 149/74 H 96 03/28/23 07:48 60 18 97 O2 Del Method 03/28/23 15:42 Room Air, Trach Collar 03/28/23 15:01 Room Air 03/28/23 10:49 Room Air 03/28/23 07:54 Room Air 03/28/23 07:47 Room Air, Trach Collar 03/28/23 07:48 Room Air Laboratory Results Laboratory Results - last 24 hr 03/28/23 03/28/23 03/28/23 08:02 11:52 16:22 POC Glucose 176 H 136 H 162 H 03/28/23 20:28 POC Glucose 179 H PG Care Time/CCT Total # of Minutes Spent Total Time Spent with Patient: Total time spent is greater than 50% in coordination of care (as documented) at patient's floor/unit and/or counseling patient: Coding Level of Care Code 19524 SUB INP/OBS CARE 12/15MIN Diagnoses Ureterolithiasis N20.1 Back pain M54.9 Chronic diastolic congestive heart failure I50.32 Lesion of left [place] kidney N28.9 Ambulatory dysfunction R26.2 Physical deconditioning R53.81 Failure to thrive CKD (chronic kidney disease) N18.9 GERD (gastroesophageal reflux disease) K21.9 Insulin-requiring or dependent type II diabetes mellitus E11.9; Z79.4 Chronic respiratory failure J96.10 Respiratory failure complication: unspecified whether with hypoxia or hypercapnia Dyslipidemia E78.5 Left knee pain M25.562 Anemia D64.9 Fracture of distal end of right femur S72.401A Morbid obesity with BMI of 60.0-69.9, adult E66.01; Z68.44 (11) Chronic respiratory failure Respiratory failure complication: unspecified whether with hypoxia or hypercapnia Qualified Code(s): J96.10 - Chronic respiratory failure, unspeci fied whether with hypoxia or hypercapnia
[2023-03-28] MEDS: ATORVASTATIN 40 MG TAB PO SCH (20:23)
[2023-03-28] MEDS: MELATONIN 3 MG TAB PO SCH (20:24)
[2023-03-29] MEDS: oxyCODONE HCL IR 5 MG TAB (IMMEDIATE RELEASE) PO PRN (06:10)
[2023-03-29] MEDS: LEVOTHYROXINE SODIUM 75 MCG TABLET PO SCH (06:10)
[2023-03-29] MEDS: PANTOprazole 40 MG TAB PO SCH (06:10)
[2023-03-29] MEDS: TORSEMIDE 10 MG TAB PO SCH ×2 (06:10→14:45)
[2023-03-29] MEDS: Ipratropium HFA Inhaler (Combivent Respimat P&T Subs) INH SCH ×4 (07:30→19:56)
[2023-03-29] MEDS: Albuterol HFA 8 GM Inhaler (Combivent Respimat P&T Subs) INH SCH ×4 (07:30→19:57)
[2023-03-29 07:49] LABS: Hematocrit (blood only) 39.4 % (37.0-47.0); Hemoglobin 11.9 g/dl (12.0-16.0); Mean Corpuscular Hemoglobin 27.3 pg (25.0-34.0); Mean Corpuscular Hgb Conc 30.2 g/dL (32.0-36.0); Mean Corpuscular Volume 90.4 fL (80.0-100.0); Mean Platelet Volume 9.8 fL (9.4-12.4); Platelet Count 248 K/uL (130-400); RDW Coefficient of Variation 15.9 % (11.5-14.5); RDW Standard Deviation 52.7 fL (36.4-46.3); Red Blood Count 4.36 M/uL (4.20-5.40); White Blood Count 8.64 K/ul (4.8-10.8)
[2023-03-29 07:51] LABS: BUN Creatinine Ratio 29.7 (10-20); Calcium 8.6 mg/dl (8.6-10.3); Creatinine Clr Calc Pharmacy 60.1 ml/min; Est GFR (African American) 46.1 ml/min; Est GFR (Non-African American) 39.7 ml/min; Potassium 4.2 mmol/L (3.5-5.1)
[2023-03-29 08:15] LABS: Estimated Average Glucose 154 mg/dl
[2023-03-29] MEDS: SERTRALINE HCL 50 MG TABLET PO SCH (08:18)
[2023-03-29] MEDS: ISOSORBIDE MONO EXTENDED REL 30 MG TABCR PO SCH (08:18)
[2023-03-29] MEDS: SPIRONOLACTONE 25 MG TAB PO SCH (08:18)
[2023-03-29] MEDS: METOPROLOL TARTRATE 25 MG TAB PO SCH ×2 (08:18→21:35)
[2023-03-29] MEDS: buPROPion SR 100 MG TABCR PO SCH ×2 (08:19→21:35)
[2023-03-29] MEDS: ACETAMINOPHEN 500 MG TAB PO SCH ×3 (08:19→21:34)
[2023-03-29] MEDS: ENOXAPARIN INJ 40 MG/0.4 ML SYR SQ SCH ×2 (08:20→21:35)
[2023-03-29] MEDS: ASPIRIN 81 MG ECTAB PO SCH (08:20)
[2023-03-29] MEDS: POTASSIUM CHLORIDE CRTAB 20 MEQ TABCR PO SCH ×2 (08:20→21:35)
[2023-03-29] MEDS: MAGNESIUM OXIDE 400 MG TAB PO SCH (08:20)
[2023-03-29] MEDS: MUPIROCIN 2% OINT 22 GM TUBE EXT SCH ×2 (08:21→21:37)
[2023-03-29] MEDS: DICLOFENAC SOD 1% GEL 100 GM TUBE EXT SCH ×4 (08:21→21:36)
[2023-03-29] MEDS: TOPIRAMATE 100 MG TAB PO SCH (08:22)
[2023-03-29] MEDS: predniSONE 5 MG TAB PO SCH (08:25)
[2023-03-29] MEDS: INSULIN, Rapid-Acting PUMP SCH ×4 (10:02→21:30)
[2023-03-29] MEDS: LIDOCAINE 5% 1 PATCH TD SCH (18:06)
--- NOTE | 2023-03-29 18:42 | Hospitalist Progress Note ---
Date of Service March 29, 2023 Assessment & Plan (1) Ureterolithiasis: Plan: left sided 4mm stone. resolving. previous imaging had shown it was in the distal ureter. patient actively passing the stone - voiding tiny remnants of such. right flank pain - felt to be musculoskeletal - improving/resolving with steroids. decrease prednisone to 5mg daily starting today, then stop after tomorrow AM's dose. (2) Back pain: Plan: right flank/right paraspinal back pain - improved. cont prednisone but wean to 5mg/day today. treat for 2 days then stop. (3) Chronic diastolic congestive heart failure: Plan: compensated cont torsemide BID. cont aldactone. cont metoprolol BID. (4) Lesion of left [place] kidney: Plan: 03/25/22 CT of femur showed the following -- "Partially imaged 2.7 cm left renal lesion is new from 2006. This could be correlated with a follow-up ultrasound to exclude renal cell carcinoma." u/s and CT abd/pelvis recently both suggest the lesion is a simple cyst only. (5) Ambulatory dysfunction: Plan: 2nd to severe deconditioning, prolonged institutionalization starting in spring 2021 after suffering a right distal femur fracture, morbid obesity, limited weight bearing status to RLE, etc. Cont PT/OT. (6) Physical deconditioning: Plan: PT/OT ideally needs SNF placement but plan is for home with caregivers, lift chair, bedside commode, home health services, etc this is at the pt's request (7) Failure to thrive: Plan: Multiple falls at home prompted the patient to be readmitted on 01/24/23. Previous to that she had had a prolonged, several month stay trying to secure SNF placement. She ultimately ended up at home with numerous services in place - but, again, did poorly over her brief time at home including multiple falls. She cont with PT/OT while here and will have plenty of services upon d/c to home. A lift chair apparently has been delivered to her home. She will have caregivers, a new ramp built to enter her home, etc. (8) CKD (chronic kidney disease): Plan: stage 3 Cr today 1.38 stable (9) GERD (gastroesophageal reflux disease): Plan: cont PPI (10) Insulin-requiring or dependent type II diabetes mellitus: Plan: Continue home insulin pump. Hba1c today 7%. EXCELLENT control on pump. Most BSGs all <200 (just occasional highs recently due to recent prednisone). no changes today. (11) Chronic respiratory failure: Plan: stable, no issues. uses HS O2 via trach. She declines consideration of transition from metal trach to plastic trach. Continue azithro 250 mg MWF for prophylaxis (12) Dyslipidemia: Plan: Continue home statin (13) Left knee pain: Plan: Continue oxycodone as needed for pain. Previous X-rays negative for fracture. PT/OT as tolerated. no recent c/o L knee pain. (14) Anemia: Plan: Hb 11.9 today and stable (15) Fracture of distal end of right femur: Plan: initial fracture was March 2022 transferred to [facility] for such - nonoperative management advised has essentially been non weight-bearing on the RLE since then which has led to significant morbidity and #1 above repeat x-rays 03/02/23 of right femur/knee with no major changes since the last imaging cont oxycodone prn cont tylenol 1gm TID cont voltaren gel qid chronic pain in R knee improved with prednisone over the last week (16) Morbid obesity with BMI of 60.0-69.9, adult: Plan: BMI 60-65 Plan appreciate social work assistance for dispo planning plan is still home with home health, PT, OT, and extensive caregivers as previously noted Admission and Anticipated Discharge Date Admission Date: January 24, 2023 Subjective pt reports that she found out today that her daughter will need a hip replacement this will be done at [facility] she is upset and tearful about this - she wants to be with her daughter when the surgery occurs surgery date is uncertain, however no new physical complaints eating well breathing is comfortable Review of Systems Review of Systems: cv - no chest pain pulm - no dyspnea GI - no abd pain/nausea/emesis - cont to pass small remnants of her left sided kidney stone Physical Exam Physical Exam: gen - NAD, sitting in chair, tearful today mouth - MMM neck - metal trach in place - clean heart - RRR, s1 s2, no murmur lungs - CTA b/l, scant end-exp wheeze b/l (scattered) abd - soft obese NT BS+ ND ext - no peripheral edema, pulses 2+ b/l musculo - right flank tenderness absent today Results & Data Results & Data Vital Signs (Past 12 Hours) Vital Signs Temp Pulse Pulse Pulse Resp BP Pulse Ox 03/29/23 15:27 71 19 94 03/29/23 14:44 36.9 C 75 20 114/69 95 03/29/23 11:37 63 14 94 03/29/23 09:20 03/29/23 07:30 62 19 95 03/29/23 07:04 36.7 C 62 18 131/66 94 O2 Del Method FiO2 03/29/23 15:27 Room Air 03/29/23 14:44 Room Air 03/29/23 11:37 Room Air 21 03/29/23 09:20 Room Air 03/29/23 07:30 Room Air 03/29/23 07:04 Room Air Laboratory Results Laboratory Results - last 24 hr 03/28/23 03/29/23 03/29/23 20:28 07:05 07:05 WBC 8.64 RBC 4.36 Hgb 11.9 L Hct 39.4 MCV 90.4 MCH 27.3 MCHC 30.2 L RDW Std Deviation 52.7 H RDW Coeff of Amee 15.9 H Plt Count 248 MPV 9.8 Sodium 141 Potassium 4.2 Chloride 109 H Carbon Dioxide 24 Anion Gap 8 BUN 41 H Creatinine 1.38 H Est Cr Clr Drug Dosing 60.1 Est GFR ( Amer) 46.1 Est GFR (Non-Af Amer) 39.7 BUN/Creatinine Ratio 29.7 H Glucose 76 POC Glucose 179 H Estimat Average Glucose Hemoglobin A1c Calcium 8.6 03/29/23 03/29/23 03/29/23 07:05 08:15 12:18 WBC RBC Hgb Hct MCV MCH MCHC RDW Std Deviation RDW Coeff of Amee Plt Count MPV Sodium Potassium Chloride Carbon Dioxide Anion Gap BUN Creatinine Est Cr Clr Drug Dosing Est GFR ( Amer) Est GFR (Non-Af Amer) BUN/Creatinine Ratio Glucose POC Glucose 74 204 H Estimat Average Glucose 154 Hemoglobin A1c 7.0 H Calcium 03/29/23 17:13 WBC RBC Hgb Hct MCV MCH MCHC RDW Std Deviation RDW Coeff of Amee Plt Count MPV Sodium Potassium Chloride Carbon Dioxide Anion Gap BUN Creatinine Est Cr Clr Drug Dosing Est GFR ( Amer) Est GFR (Non-Af Amer) BUN/Creatinine Ratio Glucose POC Glucose 89 Estimat Average Glucose Hemoglobin A1c Calcium PG Care Time/CCT Total # of Minutes Spent Total Time Spent with Patient: Total time spent is greater than 50% in coordination of care (as documented) at patient's floor/unit and/or counseling patient: Coding Level of Care Code 41877 SUB INP/OBS CARE 12/15MIN Diagnoses Ureterolithiasis N20.1 Back pain M54.9 Chronic diastolic congestive heart failure I50.32 Lesion of left [place] kidney N28.9 Ambulatory dysfunction R26.2 Physical deconditioning R53.81 Failure to thrive CKD (chronic kidney disease) N18.9 GERD (gastroesophageal reflux disease) K21.9 Insulin-requiring or dependent type II diabetes mellitus E11.9; Z79.4 Chronic respiratory failure J96.10 Respiratory failure complication: unspecified whether with hypoxia or hypercapnia Dyslipidemia E78.5 Left knee pain M25.562 Anemia D64.9 Fracture of distal end of right femur S72.401A Morbid obesity with BMI of 60.0-69.9, adult E66.01; Z68.44 (11) Chronic respiratory failure Respiratory failure complication: unspecified whether with hypoxia or hypercapnia Qualified Code(s): J96.10 - Chronic respiratory failure, unspecified whether with hypoxia or hypercapnia
[2023-03-29] MEDS: ATORVASTATIN 40 MG TAB PO SCH (21:35)
[2023-03-29] MEDS: MELATONIN 3 MG TAB PO SCH (21:35)
[2023-03-30] MEDS: PANTOprazole 40 MG TAB PO SCH (06:08)
[2023-03-30] MEDS: LEVOTHYROXINE SODIUM 75 MCG TABLET PO SCH (06:08)
[2023-03-30] MEDS: TORSEMIDE 10 MG TAB PO SCH ×2 (06:08→13:17)
[2023-03-30] MEDS: Albuterol HFA 8 GM Inhaler (Combivent Respimat P&T Subs) INH SCH ×4 (07:24→19:40)
[2023-03-30] MEDS: Ipratropium HFA Inhaler (Combivent Respimat P&T Subs) INH SCH ×4 (07:24→19:40)
[2023-03-30] MEDS: ASPIRIN 81 MG ECTAB PO SCH (08:29)
[2023-03-30] MEDS: POTASSIUM CHLORIDE CRTAB 20 MEQ TABCR PO SCH ×2 (08:29→21:28)
[2023-03-30] MEDS: METOPROLOL TARTRATE 25 MG TAB PO SCH ×2 (08:29→21:27)
[2023-03-30] MEDS: ISOSORBIDE MONO EXTENDED REL 30 MG TABCR PO SCH (08:29)
[2023-03-30] MEDS: TOPIRAMATE 100 MG TAB PO SCH (08:30)
[2023-03-30] MEDS: SERTRALINE HCL 50 MG TABLET PO SCH (08:30)
[2023-03-30] MEDS: MAGNESIUM OXIDE 400 MG TAB PO SCH (08:30)
[2023-03-30] MEDS: SPIRONOLACTONE 25 MG TAB PO SCH (08:30)
[2023-03-30] MEDS: predniSONE 5 MG TAB PO SCH (08:30)
[2023-03-30] MEDS: AZITHROMYCIN 250 MG TAB PO SCH (08:30)
[2023-03-30] MEDS: ACETAMINOPHEN 500 MG TAB PO SCH ×3 (08:30→21:28)
[2023-03-30] MEDS: ENOXAPARIN INJ 40 MG/0.4 ML SYR SQ SCH ×2 (08:31→21:28)
[2023-03-30] MEDS: buPROPion SR 100 MG TABCR PO SCH ×2 (08:31→21:28)
[2023-03-30] MEDS: DICLOFENAC SOD 1% GEL 100 GM TUBE EXT SCH ×4 (08:31→22:45)
[2023-03-30] MEDS: MUPIROCIN 2% OINT 22 GM TUBE EXT SCH ×2 (08:32→21:29)
[2023-03-30] MEDS: INSULIN, Rapid-Acting PUMP SCH ×4 (08:39→21:47)
[2023-03-30] MEDS: LIDOCAINE 5% 1 PATCH TD SCH (18:08)
--- NOTE | 2023-03-30 20:07 | Hospitalist Progress Note ---
Date of Service March 30, 2023 Assessment & Plan (1) Ureterolithiasis: Plan: left sided 4mm stone. resolved/passed. recent right flank pain - felt to be musculoskeletal - improving/resolving with steroids. stop prednisone after today's dose. (2) Back pain: Plan: right flank/right paraspinal back pain - improved / nearly resolved. stop prednisone after today's dose. (3) Chronic diastolic congestive heart failure: Plan: remains compensated on exam. cont torsemide BID. cont aldactone. cont metoprolol BID. (4) Lesion of left [place] kidney: Plan: 03/25/22 CT of femur showed the following -- "Partially imaged 2.7 cm left renal lesion is new from 2006. This could be correlated with a follow-up ultrasound to exclude renal cell carcinoma." u/s and CT abd/pelvis recently both suggest the lesion is a simple cyst only. (5) Ambulatory dysfunction: Plan: 2nd to severe deconditioning, prolonged institutionalization starting in spring 2021 after suffering a right distal femur fracture, morbid obesity, limited weight bearing status to RLE, etc. Cont PT/OT as tolerated. (6) Physical deconditioning: Plan: PT/OT ideally needs SNF placement but plan is for home with caregivers, lift chair, bedside commode, home health services, new ramp to be installed at her home, etc (7) Failure to thrive: Plan: Multiple falls at home prompted the patient to be readmitted on 01/24/23. Previous to that she had had a prolonged, several month stay trying to secure SNF placement. She ultimately ended up at home with numerous services in place - but, again, did poorly over her brief time at home including multiple falls. She cont with PT/OT while here and will have plenty of services upon d/c to home. A lift chair apparently has been delivered to her home. She will have caregivers, a new ramp built to enter her home, etc. (8) CKD (chronic kidney disease): Plan: stage 3 Cr 1.38 yesterday - stable (9) GERD (gastroesophageal reflux disease): Plan: cont PPI (10) Insulin-requiring or dependent type II diabetes mellitus: Plan: Continue home insulin pump. Hba1c 7%. EXCELLENT control on pump. Most BSGs all <200 (just occasional highs recently due to recent prednisone and occasional snacking). no changes needed (11) Chronic respiratory failure: Plan: stable, no issues. uses HS O2 via trach. She declines consideration of transition from metal trach to plastic trach. Continue azithro 250 mg MWF for prophylaxis (12) Dyslipidemia: Plan: Continue home statin (13) Left knee pain: Plan: Continue oxycodone as needed for pain. Previous X-rays negative for fracture. PT/OT as tolerated. no recent c/o L knee pain. (14) Anemia: Plan: recent Hb 11.9 - stable (15) Fracture of distal end of right femur: Plan: initial fracture was March 2022 transferred to [facility] for such - nonoperative management advised has essentially been non weight-bearing on the RLE since then which has led to significant morbidity and #1 above repeat x-rays 03/02/23 of right femur/knee with no major changes since the last imaging cont oxycodone prn cont tylenol 1gm TID cont voltaren gel qid chronic pain in R knee improved with prednisone over the last week as well (16) Morbid obesity with BMI of 60.0-69.9, adult: Plan: BMI 60-65 Plan appreciate social work assistance for dispo planning plan is still home with home health, PT, OT, and extensive caregivers as previously noted Admission and Anticipated Discharge Date Admission Date: January 24, 2023 Subjective no new issues overnight feels good BSGs a little high today due to eating some sweets and prednisone R flank pain just about resolved no L flank pain still passing remnants of the L kidney stone Review of Systems Review of Systems: gen - no fevers, good appetite cv - no chest pain pulm - no dyspnea at rest, no significant change in baseline sputum via trach GI - no abd pain/N/V Physical Exam Physical Exam: gen - NAD, resting in bed comfortably mouth - MMM; no thrush neck - metal trach in place - clean heart - RRR, s1 s2, no murmur lungs - CTA b/l, no rales or wheeze today abd - soft obese NT BS+ ND ext - no peripheral edema, pulses 2+ b/l skin - scattered abrasions on legs (shins) b/l Results & Data Results & Data Vital Signs (Past 12 Hours) Vital Signs Temp Pulse Pulse Pulse Resp BP Pulse Ox 03/30/23 19:47 72 18 94 03/30/23 15:28 68 15 94 05/10/23 15:24 36.7 C 70 22 125/64 93 03/30/23 11:13 64 18 97 03/30/23 09:00 03/30/23 08:16 36.6 C 61 20 137/72 97 O2 Del Method O2 Flow Rate FiO2 03/30/23 19:47 Room Air 03/30/23 15:28 Room Air 21 03/30/23 15:24 Room Air 03/30/23 11:13 Room Air 03/30/23 09:00 Nasal Cannula 6 03/30/23 08:16 Room Air PG Care Time/CCT Total # of Minutes Spent Total Time Spent with Patient: Total time spent is greater than 50% in coordination of care (as documented) at patient's floor/unit and/or counseling patient: Coding Level of Care Code 96389 SUB INP/OBS CARE 12/15MIN Diagnoses Ureterolithiasis N20.1 Back pain M54.9 Chronic diastolic congestive heart failure I50.32 Lesion of left [place] kidney N28.9 Ambulatory dysfunction R26.2 Physical deconditioning R53.81 Failure to thrive CKD (chronic kidney disease) N18.9 GERD (gastroesophageal reflux disease) K21.9 Insulin-requiring or dependent type II diabetes mellitus E11.9; Z79.4 Chronic respiratory failure J96.10 Respiratory failure complication: unspecified whether with hypoxia or hypercapnia Dyslipidemia E78.5 Left knee pain M25.562 Anemia D64.9 Fracture of distal end of right femur S72.401A Morbid obesity with BMI of 60.0-69.9, adult E66.01; Z68.44 (11) Chronic respiratory failure Respiratory failure complication: unspecified whether with hypoxia or hypercapnia Qualified Code(s): J96.10 - Chronic respiratory failure, unspecified whether with hypoxia or hypercapnia
[2023-03-30] MEDS: ATORVASTATIN 40 MG TAB PO SCH (21:28)
[2023-03-30] MEDS: MELATONIN 3 MG TAB PO SCH (21:28)
[2023-03-30] MEDS: oxyCODONE HCL IR 5 MG TAB (IMMEDIATE RELEASE) PO PRN (22:44)
[2023-03-31] MEDS: LEVOTHYROXINE SODIUM 75 MCG TABLET PO SCH (05:38)
[2023-03-31] MEDS: PANTOprazole 40 MG TAB PO SCH (05:38)
[2023-03-31] MEDS: oxyCODONE HCL IR 5 MG TAB (IMMEDIATE RELEASE) PO PRN ×2 (05:38→23:19)
[2023-03-31] MEDS: TORSEMIDE 10 MG TAB PO SCH ×2 (05:38→15:43)
[2023-03-31] MEDS: Ipratropium HFA Inhaler (Combivent Respimat P&T Subs) INH SCH ×4 (07:39→19:08)
[2023-03-31] MEDS: Albuterol HFA 8 GM Inhaler (Combivent Respimat P&T Subs) INH SCH ×4 (07:39→19:08)
[2023-03-31] MEDS: ACETAMINOPHEN 500 MG TAB PO SCH ×3 (09:16→22:00)
[2023-03-31] MEDS: ASPIRIN 81 MG ECTAB PO SCH (09:17)
[2023-03-31] MEDS: buPROPion SR 100 MG TABCR PO SCH ×2 (09:18→22:02)
[2023-03-31] MEDS: ENOXAPARIN INJ 40 MG/0.4 ML SYR SQ SCH ×2 (09:18→22:01)
[2023-03-31] MEDS: ISOSORBIDE MONO EXTENDED REL 30 MG TABCR PO SCH (09:18)
[2023-03-31] MEDS: MAGNESIUM OXIDE 400 MG TAB PO SCH (09:19)
[2023-03-31] MEDS: DICLOFENAC SOD 1% GEL 100 GM TUBE EXT SCH ×4 (09:20→22:00)
[2023-03-31] MEDS: METOPROLOL TARTRATE 25 MG TAB PO SCH ×2 (09:21→22:03)
[2023-03-31] MEDS: predniSONE 5 MG TAB PO SCH (09:22)
[2023-03-31] MEDS: POTASSIUM CHLORIDE CRTAB 20 MEQ TABCR PO SCH ×2 (09:22→22:00)
[2023-03-31] MEDS: SPIRONOLACTONE 25 MG TAB PO SCH (09:23)
[2023-03-31] MEDS: SERTRALINE HCL 50 MG TABLET PO SCH (09:23)
[2023-03-31] MEDS: TOPIRAMATE 100 MG TAB PO SCH (09:24)
[2023-03-31] MEDS: INSULIN, Rapid-Acting PUMP SCH ×4 (09:25→21:25)
[2023-03-31] MEDS: MUPIROCIN 2% OINT 22 GM TUBE EXT SCH ×2 (09:27→22:01)
[2023-03-31] MEDS: LIDOCAINE 5% 1 PATCH TD SCH (19:15)
--- NOTE | 2023-03-31 21:03 | Hospitalist Progress Note ---
Date of Service March 31, 2023 Assessment & Plan (1) Ureterolithiasis: Plan: left sided 4mm stone. resolved/passed. she saw some additional remnants of stone material today. no further urinary tract symptoms. recent right flank pain - felt to be musculoskeletal - fully resolved. she is done with prednisone taper. (2) Back pain: Plan: right flank/right paraspinal back pain - resolved. prednisone course completed. (3) Chronic diastolic congestive heart failure: Plan: remains compensated on exam. cont torsemide BID. cont aldactone. cont metoprolol BID. recent electrolytes & Cr wnl. (4) Lesion of left [place] kidney: Plan: 03/25/22 CT of femur showed the following -- "Partially imaged 2.7 cm left renal lesion is new from 2006. This could be correlated with a follow-up ultrasound to exclude renal cell carcinoma." u/s and CT abd/pelvis recently both suggest the lesion is a simple cyst only. (5) Ambulatory dysfunction: Plan: 2nd to severe deconditioning, prolonged institutionalization starting in spring 2021 after suffering a right distal femur fracture, morbid obesity, limited weight bearing status to RLE, etc. Cont PT/OT as tolerated. (6) Physical deconditioning: Plan: PT/OT ideally needs SNF placement but plan is for home with caregivers, lift chair, bedside commode, home health services, new ramp to be installed at her home, etc (7) Failure to thrive: Plan: Multiple falls at home prompted the patient to be readmitted on 01/24/23. Previous to that she had had a prolonged, several month stay trying to secure SNF placement. She ultimately ended up at home with numerous services in place - but, again, did poorly over her brief time at home including multiple falls. She cont with PT/OT while here and will have plenty of services upon d/c to home. A lift chair apparently has been delivered to her home. She will have caregivers, a new ramp built to enter her home, etc. Will check with case management tomorrow to see if the work needed at her home is actually taking place tomorrow (04/01/23). (8) CKD (chronic kidney disease): Plan: stage 3 Cr 1.38 yesterday - stable (9) GERD (gastroesophageal reflux disease): Plan: cont PPI (10) Insulin-requiring or dependent type II diabetes mellitus: Plan: Continue home insulin pump. Hba1c 7%. EXCELLENT control on pump. Most BSGs all <200 (just occasional highs recently due to recent prednisone and occasional snacking). no changes needed will have case management call [facility] [employer] to determine what paper work needs completed, etc for her to get her home insulin pump supplies (11) Chronic respiratory failure: Plan: stable, no issues. uses HS O2 via trach. She declines consideration of transition from metal trach to plastic trach. Continue azithro 250 mg MWF for prophylaxis trach exchanged today, 03/31 (12) Dyslipidemia: Plan: Continue home statin (13) Left knee pain: Plan: Continue oxycodone as needed for pain. Previous X-rays negative for fracture. PT/OT as tolerated. no recent c/o L knee pain. (14) Anemia: Plan: recent Hb 11.9 - stable (15) Fracture of distal end of right femur: Plan: initial fracture was March 2022 transferred to [facility] for such - nonoperative management advised has essentially been non weight-bearing on the RLE since then which has led to significant morbidity and #1 above repeat x-rays 03/02/23 of right femur/knee with no major changes since the last imaging cont oxycodone prn cont tylenol 1gm TID cont voltaren gel qid chronic pain in R knee improved with prednisone over the last week as well (16) Morbid obesity with BMI of 60.0-69.9, adult: Plan: BMI 60-65 Plan appreciate social work assistance for her complex dispo planning plan is still home with home health, PT, OT, and extensive caregivers as previously noted Admission and Anticipated Discharge Date Admission Date: January 24, 2023 Subjective patient w/o any new complaints had her metal trach swapped out today (daughter does it for her) she is uncertain about the ramp and door widening project scheduled for 04/01 at her home has not heard anything definitively about it Dannielle is her outpatient CW and she has not spoken with her about it pt reports her outpatient DME provider for her DM supplies (pump) is "[facility]" they apparently need updated provider notes ? Review of Systems Review of Systems: gen - normal energy, eating well cv - no chest pain pulm - no dyspnea, no change in baseline cough or sputum GI - no pain, n/v Physical Exam Physical Exam: gen - NAD, resting in bed comfortably mouth - MMM; no thrush neck - metal trach in place - clean heart - RRR, s1 s2, no murmur; extra beats heard today? lungs - CTA b/l, no rales or wheeze, modestly decreased BS bases abd - soft obese NT BS+ ND ext - no peripheral edema, pulses 2+ b/l skin - scattered abrasions on legs (shins) b/l unchanged psych - excellent spirits/affect full Results & Data Results & Data Vital Signs (Past 12 Hours) Vital Signs Pulse Pulse Resp Pulse Ox O2 Del Method 03/31/23 19:08 84 20 96 Room Air 03/31/23 16:01 78 18 95 Room Air 03/31/23 11:24 62 18 95 Room Air Laboratory Results Laboratory Results - last 24 hr 03/31/23 03/31/23 03/31/23 08:20 12:21 17:12 POC Glucose 125 H 85 224 H 03/31/23 20:30 POC Glucose 157 H PG Care Time/CCT Total # of Minutes Spent Total Time Spent with Patient: Total time spent is greater than 50% in coordination of care (as documented) at patient's floor/unit and/or counseling patient: Coding Level of Care Code 99004 SUB INP/OBS CARE 12/15MIN Diagnoses Ureterolithiasis N20.1 Back pain M54.9 Chronic diastolic congestive heart failure I50.32 Lesion of left [place] kidney N28.9 Ambulatory dysfunction R26.2 Physical deconditioning R53.81 Failure to thrive CKD (chronic kidney disease) N18.9 GERD (gastroesophageal reflux disease) K21.9 Insulin-requiring or dependent type II diabetes mellitus E11.9; Z79.4 Chronic respiratory failure J96.10 Respiratory failure complication: unspecified whether with hypoxia or hypercapnia Dyslipidemia E78.5 Left knee pain M25.562 Anemia D64.9 Fracture of distal end of right femur S72.401A Morbid obesity with BMI of 60.0-69.9, adult E66.01; Z68.44 (11) Chronic respiratory failure Respiratory failure complication: unspecified whether with hypoxia or hypercapnia Qualified Code(s): J96.10 - Chronic respiratory failure, unspecified whether with hypoxia or hypercapnia
[2023-03-31] MEDS: MELATONIN 3 MG TAB PO SCH (22:00)
[2023-03-31] MEDS: ATORVASTATIN 40 MG TAB PO SCH (22:02)
[2023-04-01] MEDS: LEVOTHYROXINE SODIUM 75 MCG TABLET PO SCH (05:57)
[2023-04-01] MEDS: TORSEMIDE 10 MG TAB PO SCH ×2 (05:57→14:20)
[2023-04-01] MEDS: PANTOprazole 40 MG TAB PO SCH (05:57)
[2023-04-01] MEDS: POTASSIUM CHLORIDE CRTAB 20 MEQ TABCR PO SCH ×2 (08:06→20:31)
[2023-04-01] MEDS: METOPROLOL TARTRATE 25 MG TAB PO SCH ×2 (08:07→20:31)
[2023-04-01] MEDS: buPROPion SR 100 MG TABCR PO SCH ×2 (08:07→20:32)
[2023-04-01] MEDS: TOPIRAMATE 100 MG TAB PO SCH (08:09)
[2023-04-01] MEDS: MAGNESIUM OXIDE 400 MG TAB PO SCH (08:09)
[2023-04-01] MEDS: SERTRALINE HCL 50 MG TABLET PO SCH (08:09)
[2023-04-01] MEDS: SPIRONOLACTONE 25 MG TAB PO SCH (08:09)
[2023-04-01] MEDS: ASPIRIN 81 MG ECTAB PO SCH (08:10)
[2023-04-01] MEDS: AZITHROMYCIN 250 MG TAB PO SCH (08:10)
[2023-04-01] MEDS: ISOSORBIDE MONO EXTENDED REL 30 MG TABCR PO SCH (08:10)
[2023-04-01] MEDS: DICLOFENAC SOD 1% GEL 100 GM TUBE EXT SCH ×4 (08:11→20:32)
[2023-04-01] MEDS: MUPIROCIN 2% OINT 22 GM TUBE EXT SCH ×2 (08:11→20:33)
[2023-04-01] MEDS: ENOXAPARIN INJ 40 MG/0.4 ML SYR SQ SCH ×2 (08:14→20:32)
[2023-04-01] MEDS: Ipratropium HFA Inhaler (Combivent Respimat P&T Subs) INH SCH ×4 (09:20→19:38)
[2023-04-01] MEDS: Albuterol HFA 8 GM Inhaler (Combivent Respimat P&T Subs) INH SCH ×4 (09:20→19:38)
[2023-04-01] MEDS: ACETAMINOPHEN 500 MG TAB PO SCH ×3 (09:42→20:31)
[2023-04-01] MEDS: INSULIN, Rapid-Acting PUMP SCH ×4 (09:43→20:42)
[2023-04-01] MEDS: LIDOCAINE 5% 1 PATCH TD SCH (17:13)
--- NOTE | 2023-04-01 19:18 | Hospitalist Progress Note ---
Date of Service April 01, 2023 Assessment & Plan (1) Ureterolithiasis: Plan: left sided 4mm stone. resolved/passed. no LUTS. no back pain or abd pain. (2) Back pain: Plan: right flank/right paraspinal back pain - resolved. prednisone course completed. (3) Chronic diastolic congestive heart failure: Plan: remains compensated on exam. cont torsemide BID. cont aldactone. cont metoprolol BID. recent electrolytes & Cr wnl. (4) Lesion of left [place] kidney: Plan: 03/25/22 CT of femur showed the following -- "Partially imaged 2.7 cm left renal lesion is new from 2006. This could be correlated with a follow-up ultrasound to exclude renal cell carcinoma." u/s and CT abd/pelvis recently both suggest the lesion is a simple cyst only. reassurance given to patient. (5) Ambulatory dysfunction: Plan: 2nd to severe deconditioning, prolonged institutionalization starting in spring 2021 after suffering a right distal femur fracture, morbid obesity, limited weight bearing status to RLE, etc. Cont PT/OT as tolerated. (6) Physical deconditioning: Plan: continue PT/OT ideally needs SNF placement but plan is for home with caregivers, lift chair, bedside commode, home health services, new ramp to be installed at her home, etc discharging to home is the patient's desire; she does NOT want SNF placement (7) Failure to thrive: Plan: Multiple falls at home prompted the patient to be readmitted on 01/24/23. Previous to that she had had a prolonged, several month stay trying to secure SNF placement. She ultimately ended up at home with numerous services in place - but, again, did poorly over her brief time at home including multiple falls. She cont with PT/OT while here and will have plenty of services upon d/c to home. A lift chair apparently has been delivered to her home. She will have caregivers, a new ramp built to enter her home, etc. Will check with case management tomorrow to see if the work needed at her home is actually taking place tomorrow (04/01/23). (8) CKD (chronic kidney disease): Plan: stage 3a creatinine has been stable on last several BMP checks (9) GERD (gastroesophageal reflux disease): Plan: cont PPI (10) Insulin-requiring or dependent type II diabetes mellitus: Plan: Continue home insulin pump. Hba1c 7%. EXCELLENT control on pump. Most BSGs all <200 (just occasional highs recently due to recent prednisone and occasional snacking). no changes needed will have case management call [facility] to determine what paper work needs completed, etc for her to get her home insulin pump supplies we attempted to do some of this today to no avail will attempt this again on Tuesday, 04/04 (11) Chronic respiratory failure: Plan: stable, no issues. uses HS O2 via trach. She declines consideration of transition from metal trach to plastic trach. Continue azithro 250 mg MWF for prophylaxis trach exchanged 03/31 (12) Dyslipidemia: Plan: Continue home statin (13) Left knee pain: Plan: no c/o pain in several weeks (14) Anemia: Plan: recent Hb 11.9 - stable (15) Fracture of distal end of right femur: Plan: initial fracture was March 2022 transferred to [facility] for such - nonoperative management advised has essentially been non weight-bearing on the RLE since then which has led to significant morbidity and #1 above repeat x-rays 03/02/23 of right femur/knee with no major changes since the last imaging cont oxycodone prn cont tylenol 1gm TID cont voltaren gel qid chronic pain in R knee improved with prednisone over the last week as well (16) Morbid obesity with BMI of 60.0-69.9, adult: Plan: BMI 60-65 Plan appreciate social work assistance for her complex dispo planning plan is still home with home health, PT, OT, and extensive caregivers - possibly mid next week Admission and Anticipated Discharge Date Admission Date: January 24, 2023 Subjective unfortunately no one came to the pt's house today to install the ramp & widen her front door however, we have gotten word that her caregivers may be in place by mid next week her liftchair is already at home denies any new complaints all of her recent back pain has resolved BSGs have all been <150 today she is in very good spirits excited about returning home soon Review of Systems Review of Systems: gen - feels good, normal appetite pulm - no dyspnea at rest GI - no abd pain, nausea or emesis Physical Exam Physical Exam: gen - NAD, resting in bed comfortably, very good spirits mouth - MMM; no thrush neck - metal trach in place - clean heart - RRR, s1 s2, no murmur lungs - CTA b/l abd - soft obese NT BS+ ND; no flank tenderness b/l ext - no peripheral edema, pulses 2+ b/l skin - scattered abrasions on legs (shins) b/l unchanged Results & Data Results & Data Vital Signs (Past 12 Hours) Vital Signs Temp Pulse Pulse Pulse Resp BP BP 04/01/23 16:37 77 18 04/01/23 15:40 36.6 C 69 20 116/53 L 04/01/23 11:51 76 18 04/01/23 07:45 04/01/23 09:23 86 18 04/01/23 08:05 62 126/79 Pulse Ox O2 Del Method 04/01/23 16:37 96 Room Air 04/01/23 15:40 97 Room Air 04/01/23 11:51 95 Room Air 04/01/23 07:45 Room Air 04/01/23 09:23 95 Room Air 04/01/23 08:05 Laboratory Results Laboratory Results - last 24 hr 03/31/23 04/01/23 04/01/23 20:30 08:08 12:04 POC Glucose 157 H 83 82 04/01/23 16:59 POC Glucose 118 H PG Care Time/CCT Total # of Minutes Spent Total Time Spent with Patient: Total time spent is greater than 50% in coordination of care (as documented) at patient's floor/unit and/or counseling patient: Coding Level of Care Code 81676 SUB INP/OBS CARE 1/25MIN Diagnoses Ureterolithiasis N20.1 Back pain M54.9 Chronic diastolic congestive heart failure I50.32 Lesion of left [place] kidney N28.9 Ambulatory dysfunction R26.2 Physical deconditioning R53.81 Failure to thrive CKD (chronic kidney disease) N18.9 GERD (gastroesophageal reflux disease) K21.9 Insulin-requiring or dependent type II diabetes mellitus E11.9; Z79.4 Chronic respiratory failure J96.10 Respiratory failure complication: unspecified whether with hypoxia or hypercapnia Dyslipidemia E78.5 Left knee pain M25.562 Anemia D64.9 Fracture of distal end of right femur S72.401A Morbid obesity with BMI of 60.0-69.9, adult E66.01; Z68.44 (11) Chronic respiratory failure Respiratory failure complication: unspecified whether with hypoxia or hypercapnia Qualified Code(s): J96.10 - Chronic respiratory failure, unspecified whether with hypoxia or hypercapnia
[2023-04-01] MEDS: MELATONIN 3 MG TAB PO SCH (20:31)
[2023-04-01] MEDS: ATORVASTATIN 40 MG TAB PO SCH (20:32)
[2023-04-02] MEDS: PANTOprazole 40 MG TAB PO SCH (06:31)
[2023-04-02] MEDS: TORSEMIDE 10 MG TAB PO SCH ×3 (06:31→15:59)
[2023-04-02] MEDS: LEVOTHYROXINE SODIUM 75 MCG TABLET PO SCH (06:31)
[2023-04-02] MEDS: Albuterol HFA 8 GM Inhaler (Combivent Respimat P&T Subs) INH SCH ×4 (07:58→19:14)
[2023-04-02] MEDS: Ipratropium HFA Inhaler (Combivent Respimat P&T Subs) INH SCH ×4 (07:58→19:14)
[2023-04-02] MEDS: INSULIN, Rapid-Acting PUMP SCH ×4 (09:08→21:00)
[2023-04-02] MEDS: POTASSIUM CHLORIDE CRTAB 20 MEQ TABCR PO SCH ×2 (09:10→20:59)
[2023-04-02] MEDS: ENOXAPARIN INJ 40 MG/0.4 ML SYR SQ SCH ×2 (09:10→21:00)
[2023-04-02] MEDS: SPIRONOLACTONE 25 MG TAB PO SCH (09:11)
[2023-04-02] MEDS: ASPIRIN 81 MG ECTAB PO SCH (09:12)
[2023-04-02] MEDS: MAGNESIUM OXIDE 400 MG TAB PO SCH (09:12)
[2023-04-02] MEDS: METOPROLOL TARTRATE 25 MG TAB PO SCH ×2 (09:12→20:59)
[2023-04-02] MEDS: ACETAMINOPHEN 500 MG TAB PO SCH (09:13)
[2023-04-02] MEDS: SERTRALINE HCL 50 MG TABLET PO SCH (09:14)
[2023-04-02] MEDS: buPROPion SR 100 MG TABCR PO SCH ×2 (09:14→20:59)
[2023-04-02] MEDS: TOPIRAMATE 100 MG TAB PO SCH (09:14)
[2023-04-02] MEDS: ISOSORBIDE MONO EXTENDED REL 30 MG TABCR PO SCH (09:14)
[2023-04-02] MEDS: DICLOFENAC SOD 1% GEL 100 GM TUBE EXT SCH ×4 (09:14→21:00)
[2023-04-02] MEDS: MUPIROCIN 2% OINT 22 GM TUBE EXT SCH (09:15)
[2023-04-02] MEDS: LIDOCAINE 5% 1 PATCH TD SCH (18:11)
--- NOTE | 2023-04-02 19:09 | Hospitalist Progress Note ---
Date of Service April 02, 2023 Assessment & Plan (1) Ureterolithiasis: Plan: left sided 4mm stone. resolved/passed the stone (Fragments over several days). (2) Back pain: Plan: musculoskeletal vs 2nd to #1 -- resolved. prednisone course completed. (3) Chronic diastolic congestive heart failure: Plan: remains compensated on exam. cont torsemide BID. cont aldactone. cont metoprolol BID. recent electrolytes & Cr wnl. (4) Lesion of left [place] kidney: Plan: 03/25/22 CT of femur showed the following -- "Partially imaged 2.7 cm left renal lesion is new from 2006. This could be correlated with a follow-up ultrasound to exclude renal cell carcinoma." u/s and CT abd/pelvis recently both suggest the lesion is a simple cyst only. reassurance given to patient. (5) Ambulatory dysfunction: Plan: 2nd to severe deconditioning, prolonged institutionalization starting in spring 2021 after suffering a right distal femur fracture, morbid obesity, limited weight bearing status to RLE, etc. Cont PT/OT as tolerated. (6) Physical deconditioning: Plan: continue PT/OT ideally needs SNF placement but plan is for home with caregivers, lift chair, bedside commode, home health services, new ramp to be installed at her home, etc discharging to home is the patient's desire; she does NOT want SNF placement (7) Failure to thrive: Plan: Multiple falls at home prompted the patient to be readmitted on 01/24/23. Previous to that she had had a prolonged, several month stay trying to secure SNF placement. She ultimately ended up at home with numerous services in place - but, again, did poorly over her brief time at home including multiple falls. She cont with PT/OT while here and will have plenty of services upon d/c to home. A lift chair apparently has been delivered to her home. She will have caregivers, a new ramp built to enter her home, etc. Will check with case management tomorrow to see if the work needed at her home is actually taking place tomorrow (04/01/23). (8) CKD (chronic kidney disease): Plan: stage 3a creatinine has been stable on last several BMP checks (9) GERD (gastroesophageal reflux disease): Plan: cont PPI (10) Insulin-requiring or dependent type II diabetes mellitus: Plan: Continue home insulin pump. Hba1c 7%. EXCELLENT control on pump. Most BSGs all <200 (just occasional highs recently due to recent prednisone and occasional snacking). no changes needed will have case management call Medical to determine what paper work needs completed, etc for her to get her home insulin pump supplies we attempted to do some of this today to no avail will attempt this again on Tuesday, 04/04 (11) Chronic respiratory failure: Plan: stable, no issues. uses HS O2 via trach. She declines consideration of transition from metal trach to plastic trach. Continue azithro 250 mg MWF for prophylaxis trach exchanged 03/31 (12) Dyslipidemia: Plan: Continue home statin (13) Left knee pain: Plan: no c/o pain in several weeks (14) Anemia: Plan: recent Hb 11.9 - stable (15) Fracture of distal end of right femur: Plan: initial fracture was March 2022 transferred to [facility] for such - nonoperative management advised has essentially been non weight-bearing on the RLE since then which has led to significant morbidity and #1 above repeat x-rays 03/02/23 of right femur/knee with no major changes since the last imaging cont oxycodone prn cont tylenol 1gm TID cont voltaren gel qid chronic pain in R knee improved with prednisone over the last week as well (16) Morbid obesity with BMI of 60.0-69.9, adult: Plan: BMI 60-65 Plan appreciate social work assistance for her complex dispo planning plan is still home with home health, PT, OT, and extensive caregivers - possibly mid next week NO CHANGES IN MEDICAL STATUS TODAY VS LAST SEVERAL DAYS PATIENT IS WELL AND AWAITING DISCHARGE TO HOME SOON Admission and Anticipated Discharge Date Admission Date: January 24, 2023 Subjective no events overnight no changes in how she feels no pain any location eating well hoping for d/c home next week Review of Systems Review of Systems: back - pain resolved - no LUTS pulm - no changes in baseline sputum/cough Physical Exam Physical Exam: gen - NAD, resting in bed comfortably; watching TV mouth - MMM; no thrush neck - metal trach in place - clean heart - RRR, s1 s2, no murmur lungs - CTA b/l ext - no peripheral edema, pulses 2+ b/l Results & Data Results & Data Vital Signs (Past 12 Hours) Vital Signs Temp Pulse Resp BP Pulse Ox O2 Del Method 04/02/23 15:41 73 18 96 Room Air 04/02/23 14:37 36.7 C 73 20 109/67 96 Room Air 04/02/23 11:31 66 18 97 Room Air 04/02/23 09:30 Room Air 04/02/23 07:58 61 18 98 Room Air 04/02/23 07:38 36.5 C 61 20 142/80 H 94 Room Air Laboratory Results Laboratory Results - last 24 hr 04/01/23 04/02/23 04/02/23 20:26 08:13 12:12 POC Glucose 148 H 115 H 137 H 04/02/23 17:05 POC Glucose 112 H PG Care Time/CCT Total # of Minutes Spent Total Time Spent with Patient: Total time spent is greater than 50% in coordination of care (as documented) at patient's floor/unit and/or counseling patient: Coding Level of Care Code None Diagnoses Ureterolithiasis N20.1 Back pain M54.9 Chronic diastolic congestive heart failure I50.32 Lesion of left [place] kidney N28.9 Ambulatory dysfunction R26.2 Physical deconditioning R53.81 Failure to thrive CKD (chronic kidney disease) N18.9 GERD (gastroesophageal reflux disease) K21.9 Insulin-requiring or dependent type II diabetes mellitus E11.9; Z79.4 Chronic respiratory failure J96.10 Respiratory failure complication: unspecified whether with hypoxia or hypercapnia Dyslipidemia E78.5 Left knee pain M25.562 Anemia D64.9 Fracture of distal end of right femur S72.401A Morbid obesity with BMI of 60.0-69.9, adult E66.01; Z68.44 (11) Chronic respiratory failure Respiratory failure complication: unspecified whether with hypoxia or hypercapnia Qualified Code(s): J96.10 - Chronic respiratory failure, unspecified whether with hypoxia or hypercapnia
[2023-04-02] MEDS: MELATONIN 3 MG TAB PO SCH (20:59)
[2023-04-02] MEDS: ATORVASTATIN 40 MG TAB PO SCH (20:59)
[2023-04-03] MEDS: LEVOTHYROXINE SODIUM 75 MCG TABLET PO SCH (06:04)
[2023-04-03] MEDS: PANTOprazole 40 MG TAB PO SCH (06:04)
[2023-04-03] MEDS: TORSEMIDE 10 MG TAB PO SCH ×2 (06:04→15:18)
[2023-04-03] MEDS: Albuterol HFA 8 GM Inhaler (Combivent Respimat P&T Subs) INH SCH ×4 (07:45→19:29)
[2023-04-03] MEDS: Ipratropium HFA Inhaler (Combivent Respimat P&T Subs) INH SCH ×4 (07:45→19:29)
[2023-04-03] MEDS: ASPIRIN 81 MG ECTAB PO SCH (09:10)
[2023-04-03] MEDS: MAGNESIUM OXIDE 400 MG TAB PO SCH (09:10)
[2023-04-03] MEDS: METOPROLOL TARTRATE 25 MG TAB PO SCH ×2 (09:10→20:30)
[2023-04-03] MEDS: ISOSORBIDE MONO EXTENDED REL 30 MG TABCR PO SCH (09:11)
[2023-04-03] MEDS: buPROPion SR 100 MG TABCR PO SCH ×2 (09:11→20:30)
[2023-04-03] MEDS: DICLOFENAC SOD 1% GEL 100 GM TUBE EXT SCH ×4 (09:11→20:31)
[2023-04-03] MEDS: TOPIRAMATE 100 MG TAB PO SCH (09:11)
[2023-04-03] MEDS: POTASSIUM CHLORIDE CRTAB 20 MEQ TABCR PO SCH ×2 (09:11→20:30)
[2023-04-03] MEDS: SPIRONOLACTONE 25 MG TAB PO SCH (09:11)
[2023-04-03] MEDS: SERTRALINE HCL 50 MG TABLET PO SCH (09:11)
[2023-04-03] MEDS: ENOXAPARIN INJ 40 MG/0.4 ML SYR SQ SCH ×2 (09:12→20:30)
[2023-04-03] MEDS: INSULIN, Rapid-Acting PUMP SCH ×4 (09:27→21:25)
[2023-04-03] MEDS: LIDOCAINE 5% 1 PATCH TD SCH (17:19)
--- NOTE | 2023-04-03 19:59 | Hospitalist Progress Note ---
Date of Service April 03, 2023 Assessment & Plan (1) Ureterolithiasis: Plan: left sided 4mm stone. resolved/passed the stone (Fragments were passed over several days). denies any further urinary symptoms. (2) Back pain: Plan: musculoskeletal vs 2nd to #1 -- resolved. prednisone course completed. (3) Chronic diastolic congestive heart failure: Plan: remains compensated on exam. cont torsemide BID. cont aldactone. cont metoprolol BID. recent electrolytes & Cr wnl. plan to recheck her labs in 48 hours. (4) Lesion of left [place] kidney: Plan: 03/25/22 CT of femur showed the following -- "Partially imaged 2.7 cm left renal lesion is new from 2006. This could be correlated with a follow-up ultrasound to exclude renal cell carcinoma." u/s and CT abd/pelvis recently both suggest the lesion is a simple cyst only. reassurance given to patient. (5) Ambulatory dysfunction: Plan: 2nd to severe deconditioning, prolonged institutionalization starting in spring 2021 after suffering a right distal femur fracture, morbid obesity, limited weight bearing status to RLE, etc. Cont PT/OT as tolerated. (6) Physical deconditioning: Plan: continue PT/OT ideally needs SNF placement but plan is for home with caregivers, lift chair, bedside commode, home health services, new ramp to be installed at her home, etc discharging to home is the patient's desire; she does NOT want SNF placement (7) Failure to thrive: Plan: resolved. eating well. participating with therapy at [facility]. will have home health services and home PT/OT upon discharge. (8) CKD (chronic kidney disease): Plan: stage 3a creatinine has been stable the entire stay (9) GERD (gastroesophageal reflux disease): Plan: cont PPI (10) Insulin-requiring or dependent type II diabetes mellitus: Plan: Continue home insulin pump. Hba1c 7%. EXCELLENT control on pump. Most BSGs all <200 (just occasional highs recently due to recent prednisone and occasional snacking). no changes needed will have case management call Medical to determine what paper work needs completed, etc for her to get her home insulin pump supplies will attempt this again tomorrow on Tuesday, 04/04 (11) Chronic respiratory failure: Plan: stable, no issues. room air during the day. uses HS O2 via trach. She declines consideration of transition from metal trach to plastic trach. Continue azithro 250 mg MWF for prophylaxis trach exchanged 03/31 daughter performs the trach exchanges (12) Dyslipidemia: Plan: Continue home statin (13) Left knee pain: Plan: no c/o pain in several weeks (14) Anemia: Plan: recent Hb 11.9 - stable repeat CBC in 48 hours (15) Fracture of distal end of right femur: Plan: initial fracture was March 2022 transferred to [facility] for such - nonoperative management advised has essentially been non weight-bearing on the RLE since then which has led to significant morbidity and #1 above repeat x-rays 03/02/23 of right femur/knee with no major changes since the last imaging cont oxycodone prn cont tylenol 1gm TID cont voltaren gel qid chronic pain in R knee improved with prednisone over the last week as well (16) Morbid obesity with BMI of 60.0-69.9, adult: Plan: BMI 60-65 Plan appreciate social work assistance for her complex dispo planning plan is still home with home health, PT, OT, and extensive caregivers - possibly mid week this week needs supplies for her insulin pump - only has about 7 days of supplies left in her possession Admission and Anticipated Discharge Date Admission Date: January 24, 2023 Subjective no events today feels good anxious to go home breathing is at baseline asks for cream or ointment for her left leg abrasions moving bowels no new needs or concerns Review of Systems Review of Systems: gen - feels good, normal appetite cv - no chest pain, no edema pulm - occasional cough, occasional sputum via trach, some BARGER but this is baseline for her GI - no abd pain; no flank pain musculo - no back pain Physical Exam Physical Exam: gen - NAD, resting in bed comfortably; watching TV mouth - MMM; no thrush neck - metal trach in place - clean heart - RRR, s1 s2, no murmur lungs - CTA b/l abd - soft NT ND BS+, obese ext - no peripheral edema, pulses 2+ b/l skin - abrasions LLE without cellulitis Results & Data Results & Data Vital Signs (Past 12 Hours) Vital Signs Temp Pulse Resp BP Pulse Ox O2 Del Method 04/03/23 19:31 79 18 95 Room Air 05/14/23 19:20 Room Air, Trach Collar 05/14/23 15:04 75 18 95 Room Air 04/03/23 14:27 36.9 C 75 18 128/75 95 Room Air 04/03/23 11:17 80 18 94 Room Air 04/03/23 09:30 Room Air 04/03/23 08:11 36.4 C L 83 20 148/73 H 93 Room Air Laboratory Results Laboratory Results - last 24 hr 04/02/23 04/03/23 04/03/23 20:34 08:08 11:59 POC Glucose 152 H 151 H 169 H 04/03/23 17:13 POC Glucose 84 PG Care Time/CCT Total # of Minutes Spent Total Time Spent with Patient: Total time spent is greater than 50% in coordination of care (as documented) at patient's floor/unit and/or counseling patient: Coding Level of Care Code 01224 SUB INP/OBS CARE 12/15MIN Diagnoses Ureterolithiasis N20.1 Back pain M54.9 Chronic diastolic congestive heart failure I50.32 Lesion of left [place] kidney N28.9 Ambulatory dysfunction R26.2 Physical deconditioning R53.81 Failure to thrive CKD (chronic kidney disease) N18.9 GERD (gastroesophageal reflux disease) K21.9 Insulin-requiring or dependent type II diabetes mellitus E11.9; Z79.4 Chronic respiratory failure J96.10 Respiratory failure complication: unspecified whether with hypoxia or hypercapnia Dyslipidemia E78.5 Left knee pain M25.562 Anemia D64.9 Fracture of distal end of right femur S72.401A Morbid obesity with BMI of 60.0-69.9, adult E66.01; Z68.44 (11) Chronic respiratory failure Respiratory failure complication: unspecified whether with hypoxia or hypercapnia Qualified Code(s): J96.10 - Chronic respiratory failure, unspecified whether with hypoxia or hypercapnia
[2023-04-03] MEDS: ATORVASTATIN 40 MG TAB PO SCH (20:30)
[2023-04-03] MEDS: MELATONIN 3 MG TAB PO SCH (20:30)
[2023-04-03] MEDS: oxyCODONE HCL IR 5 MG TAB (IMMEDIATE RELEASE) PO PRN (20:30)
[2023-04-04] MEDS: TORSEMIDE 10 MG TAB PO SCH ×2 (06:01→15:05)
[2023-04-04] MEDS: LEVOTHYROXINE SODIUM 75 MCG TABLET PO SCH (06:01)
[2023-04-04] MEDS: PANTOprazole 40 MG TAB PO SCH (06:01)
[2023-04-04] MEDS: POTASSIUM CHLORIDE CRTAB 20 MEQ TABCR PO SCH ×2 (07:49→20:42)
[2023-04-04] MEDS: METOPROLOL TARTRATE 25 MG TAB PO SCH ×2 (07:49→20:42)
[2023-04-04] MEDS: SPIRONOLACTONE 25 MG TAB PO SCH (07:49)
[2023-04-04] MEDS: TOPIRAMATE 100 MG TAB PO SCH (07:49)
[2023-04-04] MEDS: MAGNESIUM OXIDE 400 MG TAB PO SCH (07:50)
[2023-04-04] MEDS: SERTRALINE HCL 50 MG TABLET PO SCH (07:50)
[2023-04-04] MEDS: ISOSORBIDE MONO EXTENDED REL 30 MG TABCR PO SCH (07:50)
[2023-04-04] MEDS: ENOXAPARIN INJ 40 MG/0.4 ML SYR SQ SCH ×2 (07:51→20:42)
[2023-04-04] MEDS: DICLOFENAC SOD 1% GEL 100 GM TUBE EXT SCH ×4 (07:51→20:42)
[2023-04-04] MEDS: buPROPion SR 100 MG TABCR PO SCH ×2 (07:51→20:42)
[2023-04-04] MEDS: ASPIRIN 81 MG ECTAB PO SCH (07:51)
[2023-04-04] MEDS: Albuterol HFA 8 GM Inhaler (Combivent Respimat P&T Subs) INH SCH ×4 (08:22→19:47)
[2023-04-04] MEDS: Ipratropium HFA Inhaler (Combivent Respimat P&T Subs) INH SCH ×4 (08:22→19:47)
[2023-04-04] MEDS: INSULIN, Rapid-Acting PUMP SCH ×4 (09:14→21:00)
[2023-04-04] MEDS: LIDOCAINE 5% 1 PATCH TD SCH (17:31)
[2023-04-04] MEDS: ATORVASTATIN 40 MG TAB PO SCH (20:42)
[2023-04-04] MEDS: MELATONIN 3 MG TAB PO SCH (20:42)
[2023-04-04] MEDS: EUCERIN CR 120 GM JAR EXT SCH (22:03)
[2023-04-04] MEDS: DESONIDE CR 15 GM TUBE EXT SCH (22:04)
[2023-04-04] MEDS: MUPIROCIN 2% OINT 22 GM TUBE EXT SCH (22:04)
[2023-04-05 05:06] LABS: Hematocrit (blood only) 38.1 % (37.0-47.0); Hemoglobin 11.7 g/dl (12.0-16.0); Mean Corpuscular Hemoglobin 27.7 pg (25.0-34.0); Mean Corpuscular Hgb Conc 30.7 g/dL (32.0-36.0); Mean Corpuscular Volume 90.1 fL (80.0-100.0); Platelet Count 225 K/uL (130-400); RDW Coefficient of Variation 15.8 % (11.5-14.5); RDW Standard Deviation 51.9 fL (36.4-46.3); Red Blood Count 4.23 M/uL (4.20-5.40); White Blood Count 8.62 K/ul (4.8-10.8)
[2023-04-05 05:19] LABS: BUN Creatinine Ratio 24.5 (10-20); Calcium 9.3 mg/dl (8.6-10.3); Est GFR (African American) 44.1 ml/min; Est GFR (Non-African American) 38.1 ml/min; Potassium 4.2 mmol/L (3.5-5.1)
[2023-04-05] MEDS: TORSEMIDE 10 MG TAB PO SCH ×3 (06:06→22:21)
[2023-04-05] MEDS: PANTOprazole 40 MG TAB PO SCH (06:06)
[2023-04-05] MEDS: LEVOTHYROXINE SODIUM 75 MCG TABLET PO SCH (06:07)
[2023-04-05] MEDS: Ipratropium HFA Inhaler (Combivent Respimat P&T Subs) INH SCH ×4 (07:43→19:34)
[2023-04-05] MEDS: Albuterol HFA 8 GM Inhaler (Combivent Respimat P&T Subs) INH SCH ×4 (07:43→19:34)
[2023-04-05] MEDS: EUCERIN CR 120 GM JAR EXT SCH ×2 (08:16→21:51)
[2023-04-05] MEDS: MUPIROCIN 2% OINT 22 GM TUBE EXT SCH ×2 (08:17→21:51)
[2023-04-05] MEDS: ISOSORBIDE MONO EXTENDED REL 30 MG TABCR PO SCH (08:18)
[2023-04-05] MEDS: TOPIRAMATE 100 MG TAB PO SCH (08:18)
[2023-04-05] MEDS: MAGNESIUM OXIDE 400 MG TAB PO SCH (08:18)
[2023-04-05] MEDS: POTASSIUM CHLORIDE CRTAB 20 MEQ TABCR PO SCH ×2 (08:19→21:51)
[2023-04-05] MEDS: SERTRALINE HCL 50 MG TABLET PO SCH (08:19)
[2023-04-05] MEDS: SPIRONOLACTONE 25 MG TAB PO SCH (08:19)
[2023-04-05] MEDS: ASPIRIN 81 MG ECTAB PO SCH (08:19)
[2023-04-05] MEDS: buPROPion SR 100 MG TABCR PO SCH ×2 (08:19→21:50)
[2023-04-05] MEDS: METOPROLOL TARTRATE 25 MG TAB PO SCH ×2 (08:19→21:51)
[2023-04-05] MEDS: ENOXAPARIN INJ 40 MG/0.4 ML SYR SQ SCH ×2 (08:19→21:51)
[2023-04-05] MEDS: DICLOFENAC SOD 1% GEL 100 GM TUBE EXT SCH ×4 (08:20→21:51)
[2023-04-05] MEDS: DESONIDE CR 15 GM TUBE EXT SCH ×2 (08:20→21:50)
[2023-04-05] MEDS: INSULIN, Rapid-Acting PUMP SCH ×4 (09:02→21:51)
--- NOTE | 2023-04-05 12:22 | Hospitalist Progress Note ---
Date of Service April 04, 2023 Assessment & Plan (1) Insulin-requiring or dependent type II diabetes mellitus: Plan: Hba1c 7% on 03/29/23. Patient is on chronic insulin pump therapy. She has EXCELLENT control on such. Most BSGs all <175 (just occasional highs recently due to recent prednisone and occasional snacking). No recent changes to her pump settings. Patient recently contacted [facility] to order additional insulin pump supplies (needle, tubing, etc). Because she has been hospitalized for essentially 12+ months and has not had any outpatient clinic visits at endocrinology they told her she could not get supplies at the current time. Our social work staff contacted [facility] to determine the next steps. It appears that patient will need outpatient f/u with endocrinology shortly after discharge before any pump supplies can be obtained for the patient. In her possession she only has ~7-10 days of pump supplies left. By report it sounds as if endocrinology may not be able to see her for 2-3 weeks post discharge. While waiting for outpatient f/u endocrinology suggested to Penny Cook from the diabetes education team to consider changing to [place] basal-bolus insulin. Patient adamantly refuses this idea. Perhaps her PCP through [facility], Dr Mcgee, could assist in any paperwork necessary to obtain the supplies? Will reach out to Dr Mcgee to discuss this. (2) Ureterolithiasis: Plan: recent left sided 4mm stone. resolved/passed the stone. denies any further urinary symptoms. (3) Back pain: Plan: musculoskeletal vs 2nd to #1 -- resolved. prednisone course completed. (4) Chronic diastolic congestive heart failure: Plan: remains compensated on exam. cont torsemide BID. cont aldactone. cont metoprolol BID. recent electrolytes & Cr wnl. plan to recheck her labs in 48 hours. (5) Lesion of left [place] kidney: Plan: u/s and CT abd/pelvis recently both suggest the lesion on left kidney is a simple cyst only. (6) Ambulatory dysfunction: Plan: 2nd to severe deconditioning, prolonged institutionalization starting in spring 2021 after suffering a right distal femur fracture, morbid obesity, limited weight bearing status to RLE, etc. Cont PT/OT as tolerated. (7) Physical deconditioning: Plan: continue PT/OT ideally needs SNF placement but plan is for home with caregivers, lift chair, bedside commode, home health services, new ramp to be installed at her home, etc discharging to home is the patient's desire; she does NOT want SNF placement possible d/c later this week (8) Failure to thrive: Plan: resolved. eating well. participating with therapy at [facility]. will have home health services and home PT/OT upon discharge. (9) CKD (chronic kidney disease): Plan: stage 3a creatinine has been stable the entire stay repeat BMP in am for stability (10) GERD (gastroesophageal reflux disease): Plan: cont PPI (11) Chronic respiratory failure: Plan: stable, no issues. room air during the day. uses HS O2 via trach. She declines consideration of transition from metal trach to plastic trach. Continue azithro 250 mg MWF for prophylaxis trach exchanged 03/31 daughter performs the trach exchanges (12) Dyslipidemia: Plan: Continue home statin (13) Left knee pain: Plan: no c/o pain in several weeks (14) Anemia: Plan: recent Hb 11.9 - stable repeat CBC in am (15) Fracture of distal end of right femur: Plan: initial fracture was March 2022 transferred to [facility] for such - nonoperative management advised has essentially been non weight-bearing on the RLE since then which has led to significant morbidity and #1 above repeat x-rays 03/02/23 of right femur/knee with no major changes since the last imaging cont oxycodone prn cont tylenol 1gm TID cont voltaren gel qid chronic pain in R knee improved with prednisone over the last week as well (16) Morbid obesity with BMI of 60.0-69.9, adult: Plan: BMI 60-65 (17) Seborrhea: Plan: forehead, around nose, etc desowen cream in thin amounts BID (18) Abrasion of leg, left: Plan: topical bactroban ointment to abrasions & tiny ulcers on anterior left [place] BID for dry skin on legs, arms, etc -- ordered Eucerin cream and apply at least BID (and more if desired) Plan appreciate social work assistance for her complex dispo planning plan is still home with home health, PT, OT, and extensive caregivers - possibly mid week this week needs supplies for her insulin pump - only has about 7-10 days of supplies left in her possession see #1 above regarding this issue Admission and Anticipated Discharge Date Admission Date: January 24, 2023 Physical Exam Physical Exam: gen - NAD, resting in bed comfortably; watching TV mouth - MMM; no thrush neck - metal trach in place - clean heart - RRR, s1 s2, no murmur lungs - CTA b/l abd - soft NT ND BS+, obese ext - no peripheral edema, pulses 2+ b/l skin - abrasions LLE without cellulitis Results & Data Results & Data Vital Signs (Past 12 Hours) Vital Signs Temp Pulse Pulse Resp BP BP Pulse Ox 04/04/23 16:30 36.6 C 81 16 123/76 94 04/04/23 15:26 88 18 94 O2 Del Method O2 Flow Rate FiO2 04/04/23 16:30 Room Air 04/04/23 15:26 Room Air PG Care Time/CCT Total # of Minutes Spent Total Time Spent with Patient: Total time spent is greater than 50% in coordination of care (as documented) at patient's floor/unit and/or counseling patient: Coding Level of Care Code 93272 SUB INP/OBS CARE 2/35MIN Diagnoses Insulin-requiring or dependent type II diabetes mellitus E11.9; Z79.4 Ureterolithiasis N20.1 Back pain M54.9 Chronic diastolic congestive heart failure I50.32 Lesion of left [place] kidney N28.9 Ambulatory dysfunction R26.2 Physical deconditioning R53.81 Failure to thrive CKD (chronic kidney disease) N18.9 GERD (gastroesophageal reflux disease) K21.9 Chronic respiratory failure J96.10 Respiratory failure complication: unspecified whether with hypoxia or hypercapnia Dyslipidemia E78.5 Left knee pain M25.562 Anemia D64.9 Fracture of distal end of right femur S72.401A Morbid obesity with BMI of 60.0-69.9, adult E66.01; Z68.44 Seborrhea L21.9 Abrasion of leg, left S80.812A (11) Chronic respiratory failure Respiratory failure complication: unspecified whether with hypoxia or hypercapnia Qualified Code(s): J96.10 - Chronic respiratory failure, unspecified whether with hypoxia or hypercapnia
--- NOTE | 2023-04-05 15:25 | Hospitalist Progress Note ---
Date of Service April 05, 2023 Assessment & Plan (1) Insulin-requiring or dependent type II diabetes mellitus: Plan: Hba1c 7% on 03/29/23. Patient is on chronic insulin pump therapy. She has EXCELLENT control on such. Most BSGs all <175 (just occasional highs recently due to recent prednisone and occasional snacking). No recent changes to her pump settings. Patient recently contacted [facility] to order additional insulin pump supplies (needle, tubing, etc). Because she has been hospitalized for essentially 12+ months and has not had any outpatient clinic visits at endocrinology they told her she could not get supplies at the current time. Our social work staff contacted [facility] to determine the next steps. It appears that patient will need outpatient f/u with endocrinology shortly after discharge before any pump supplies can be obtained for the patient. In her possession she thinks she has 1 month of pump supplies left. By report it sounds as if endocrinology may not be able to see her for 2-3 weeks post discharge. While waiting for outpatient f/u endocrinology suggested to Penny Cook from the diabetes education team to consider changing to [place] basal-bolus insulin. Patient adamantly refuses this idea. (2) Ureterolithiasis: Plan: recent left sided 4mm stone. resolved/passed the stone. denies any further urinary symptoms. (3) Back pain: Plan: musculoskeletal vs 2nd to #1 -- resolved. prednisone course completed. (4) Chronic diastolic congestive heart failure: Plan: remains compensated on exam. cont torsemide BID. cont aldactone. cont metoprolol BID. recent electrolytes & Cr wnl. (5) Lesion of left [place] kidney: Plan: u/s and CT abd/pelvis recently both suggest the lesion on left kidney is a simple cyst only. (6) Ambulatory dysfunction: Plan: 2nd to severe deconditioning, prolonged institutionalization starting in spring 2021 after suffering a right distal femur fracture, morbid obesity, limited weight bearing status to RLE, etc. Cont PT/OT as tolerated. (7) Physical deconditioning: Plan: continue PT/OT ideally needs SNF placement but plan is for home with caregivers, lift chair, bedside commode, home health services, new ramp to be installed at her home, etc discharging to home is the patient's desire; she does NOT want SNF placement dc to home tomorrow with multimedia manager caregivers (8) Failure to thrive: Plan: resolved. eating well. participating with therapy at [facility]. will have home health services and home PT/OT upon discharge. (9) CKD (chronic kidney disease): Plan: stage 3a creatinine has been stable the entire stay (10) GERD (gastroesophageal reflux disease): Plan: cont PPI (11) Chronic respiratory failure: Plan: stable, no issues. room air during the day. uses HS O2 via trach. She declines consideration of transition from metal trach to plastic trach. Continue azithro 250 mg MWF for prophylaxis trach exchanged 03/31 daughter performs the trach exchanges trach supplies to be ordered by patient after discharge (12) Dyslipidemia: Plan: Continue home statin (13) Left knee pain: Plan: no c/o pain in several weeks (14) Anemia: Plan: recent Hb 11.7 - stable (15) Fracture of distal end of right femur: Plan: initial fracture was March 2022 transferred to [facility] for such - nonoperative management advised has essentially been non weight-bearing on the RLE since then which has led to significant morbidity and #1 above repeat x-rays 03/02/23 of right femur/knee with no major changes since the last imaging cont oxycodone prn cont tylenol 1gm TID cont voltaren gel qid chronic pain in R knee improved with prednisone over the last week as well (16) Morbid obesity with BMI of 60.0-69.9, adult: Plan: BMI 60-65 (17) Seborrhea: Plan: forehead, around nose, etc desowen cream in thin amounts BID (18) Abrasion of leg, left: Plan: topical bactroban ointment to abrasions & tiny ulcers on anterior left [place] BID for dry skin on legs, arms, etc -- ordered Eucerin cream and apply at least BID (and more if desired) Plan appreciate social work assistance for her complex dispo planning plan is still home with home health, PT, OT, and extensive caregivers - tomorrow Admission and Anticipated Discharge Date Admission Date: January 24, 2023 Subjective No complaints. Excited for discharge tomorrow Physical Exam Constitutional: WD/WN, vitals as above Eyes: + anicteric sclerae Neck: + abnormal visual inspection (trach tube in place) Respiratory: normal respiratory effort, lungs clear to auscultation Cardiovascular: Rate/Rhythm: regular rate and regular rhythm Extremities: + edema (trace ankle edema bilat) Psychiatric: A+Ox3, euthymic affect Results & Data Results & Data Vital Signs (Past 12 Hours) Vital Signs Temp Pulse Pulse Resp BP Pulse Ox O2 Del Method 04/05/23 11:07 63 20 94 Room Air 04/05/23 09:18 Room Air 04/05/23 07:49 36.6 C 74 22 147/81 H 96 Room Air 04/05/23 07:44 73 20 93 Room Air PG Care Time/CCT Total # of Minutes Spent Total Time Spent with Patient: Total time spent is greater than 50% in coordination of care (as documented) at patient's floor/unit and/or counseling patient: Coding Level of Care Code 21034 SUB INP/OBS CARE 12/15MIN Diagnoses Insulin-requiring or dependent type II diabetes mellitus E11.9; Z79.4 Ureterolithiasis N20.1 Back pain M54.9 Chronic diastolic congestive heart failure I50.32 Lesion of left [place] kidney N28.9 Ambulatory dysfunction R26.2 Physical deconditioning R53.81 Failure to thrive CKD (chronic kidney disease) N18.9 GERD (gastroesophageal reflux disease) K21.9 Chronic respiratory failure J96.10 Respiratory failure complication: unspecified whether with hypoxia or hypercapnia Dyslipidemia E78.5 Left knee pain M25.562 Anemia D64.9 Fracture of distal end of right femur S72.401A Morbid obesity with BMI of 60.0-69.9, adult E66.01; Z68.44 Seborrhea L21.9 Abrasion of leg, left S80.812A (11) Chronic respiratory failure Respiratory failure complication: unspecified whether with hypoxia or hypercapnia Qualified Code(s): J96.10 - Chronic respiratory failure, unspecified whether with hypoxia or hypercapnia
[2023-04-05] MEDS: LIDOCAINE 5% 1 PATCH TD SCH (15:49)
[2023-04-05] MEDS: oxyCODONE HCL IR 5 MG TAB (IMMEDIATE RELEASE) PO PRN (21:43)
[2023-04-05] MEDS: ATORVASTATIN 40 MG TAB PO SCH (21:48)
[2023-04-05] MEDS: MELATONIN 3 MG TAB PO SCH (21:51)
[2023-04-06] MEDS: LEVOTHYROXINE SODIUM 75 MCG TABLET PO SCH (05:55)
[2023-04-06] MEDS: PANTOprazole 40 MG TAB PO SCH (05:55)
[2023-04-06] MEDS: Albuterol HFA 8 GM Inhaler (Combivent Respimat P&T Subs) INH SCH ×2 (07:16→10:57)
[2023-04-06] MEDS: Ipratropium HFA Inhaler (Combivent Respimat P&T Subs) INH SCH ×2 (07:16→10:57)
[2023-04-06] MEDS: ASPIRIN 81 MG ECTAB PO SCH (08:28)
[2023-04-06] MEDS: buPROPion SR 100 MG TABCR PO SCH (08:28)
[2023-04-06] MEDS: DESONIDE CR 15 GM TUBE EXT SCH (08:28)
[2023-04-06] MEDS: ISOSORBIDE MONO EXTENDED REL 30 MG TABCR PO SCH (08:29)
[2023-04-06] MEDS: EUCERIN CR 120 GM JAR EXT SCH (08:29)
[2023-04-06] MEDS: ENOXAPARIN INJ 40 MG/0.4 ML SYR SQ SCH (08:29)
[2023-04-06] MEDS: DICLOFENAC SOD 1% GEL 100 GM TUBE EXT SCH (08:29)
[2023-04-06] MEDS: METOPROLOL TARTRATE 25 MG TAB PO SCH (08:30)
[2023-04-06] MEDS: MAGNESIUM OXIDE 400 MG TAB PO SCH (08:30)
[2023-04-06] MEDS: SERTRALINE HCL 50 MG TABLET PO SCH (08:31)
[2023-04-06] MEDS: POTASSIUM CHLORIDE CRTAB 20 MEQ TABCR PO SCH (08:31)
[2023-04-06] MEDS: MUPIROCIN 2% OINT 22 GM TUBE EXT SCH (08:31)
[2023-04-06] MEDS: SPIRONOLACTONE 25 MG TAB PO SCH (08:32)
[2023-04-06] MEDS: TOPIRAMATE 100 MG TAB PO SCH (08:32)
[2023-04-06] MEDS: INSULIN, Rapid-Acting PUMP SCH ×2 (09:12→13:06)
--- NOTE | 2023-04-06 12:30 | Discharge Summary ---
Discharge Summary Date of Service April 06, 2023 Principal Dx & Hospital Course #1 = Principal Diagnosis (1) Insulin-requiring or dependent type II diabetes mellitus: Hba1c 7% on 03/29/23. Patient is on chronic insulin pump therapy. She has EXCELLENT control on such. Most BSGs all <175 (just occasional highs recently due to recent prednisone and occasional snacking). No recent changes to her pump settings. Patient recently contacted [facility] to order additional insulin pump supplies (needle, tubing, etc). Because she has been hospitalized for essentially 12+ months and has not had any outpatient clinic visits at endocrinology they told her she could not get supplies at the current time. Our social work staff contacted [facility] to determine the next steps. It appears that patient will need outpatient f/u with endocrinology shortly afte r discharge before any pump supplies can be obtained for the patient. In her possession she thinks she has 1 month of pump supplies left. endocrinology will be seeing her via telehealth later this week While waiting for outpatient f/u endocrinology suggested to Penny Cook from the diabetes education team to consider changing to [place] basal-bolus insulin. Patient adamantly refuses this idea. (2) Ureterolithiasis: recent left sided 4mm stone. resolved/passed the stone. denies any further urinary symptoms. (3) Back pain: musculoskeletal on the right side-- resolved. prednisone course completed. Continue heating pad as needed Oxycodone as needed (4) Chronic diastolic congestive heart failure: remains compensated on exam. cont torsemide BID. cont aldactone. cont metoprolol BID. recent electrolytes & Cr wnl. (5) Lesion of left [place] kidney: u/s and CT abd/pelvis recently both suggest the lesion on left kidney is a simple cyst only. (6) Ambulatory dysfunction: 2nd to severe deconditioning, prolonged institutionalization starting in spring 2021 after suffering a right distal femur fracture, morbid obesity, limited weight bearing status to RLE, etc. Cont PT/OT at home (7) Physical deconditioning: continue PT/OT ideally needs SNF placement but plan is for home with caregivers, lift chair, bedside commode, home health services, new ramp to be installed at her home, etc discharging to home is the patient's desire; she does NOT want SNF placement dc to home today with time cycle operator caregivers (8) Failure to thrive: resolved. eating well. participating with therapy at [facility]. will have home health services and home PT/OT upon discharge. (9) CKD (chronic kidney disease): stage 3a creatinine has been stable the entire stay (10) GERD (gastroesophageal reflux disease): cont PPI (11) Chronic respiratory failure: stable, no issues. room air during the day. uses HS O2 via trach. She declines consideration of transition from metal trach to plastic trach. Continue azithro 250 mg MWF for prophylaxis trach exchanged 03/31 daughter performs the trach exchanges trach supplies to be ordered by patient after discharge (12) Dyslipidemia: Continue home statin (13) Left knee pain: no c/o pain in several weeks (14) Anemia: recent Hb 11.7 - stable (15) Fracture of distal end of right femur: initial fracture was March [address] [facility] for such - nonoperative management advised has essentially been non weight-bearing on the RLE since then which has led to significant morbidity and #1 above repeat x-rays 03/02/23 of right femur/knee with no major changes since the last imaging cont oxycodone prn cont tylenol 1gm TID cont voltaren gel qid chronic pain in R knee improved with prednisone over the last week as well Follow-up with orthopedics within 1 month after discharge (16) Morbid obesity with BMI of 60.0-69.9, adult: BMI 60-65 (17) Seborrhea: forehead, around nose, etc Desonide cream in thin amounts BID (18) Abrasion of leg, left: topical bactroban ointment to abrasions & tiny ulcers on anterior left [place] BID for dry skin on legs, arms, etc -- ordered Eucerin cream and apply at least BID (and more if desired) Plan appreciate social work assistance for her complex dispo planning discharge to home with home health, PT, OT, and extensive caregivers Discharge Exam Constitutional WD/WN, vitals as above Eyes + anicteric sclerae Neck + abnormal visual inspection (trach tube in place) Respiratory normal respiratory effort, lungs clear to auscultation Cardiovascular RRR, no murmur, no edema Rate/Rhythm: regular rate and regular rhythm Extremities: + edema (trace ankle edema bilat) Gastrointestinal (Abdomen) normal bowel sounds, soft, nontender, no hepatosplenomegaly Skin + lesion (left inferior buttocks 1 cm open wound,no erythema) Psychiatric A+Ox3, euthymic affect Updated Medication List Medication Instructions Recorded Confirmed Type aspirin 81 mg tablet,delayed 81 mg PO QAM #30 tabs 04/06/23 Rx release (Robert Low Dose Aspirin) atorvastatin 40 mg tablet 40 mg PO QPM #30 tabs 04/06/23 Rx azithromycin 250 mg tablet 250 mg PO MoWeFr@0900 #12 tabs 04/06/23 Rx blood sugar diagnostic (Contour #300 ea 04/06/23 Rx Next Test Strips) bupropion HCl 100 mg tablet,12 hr 200 mg PO PM #90 ea 04/06/23 Rx sustained-release desonide 0.05 % topical cream 1 applic EXT BID 2 weeks #15 grams 04/06/23 Rx diclofenac sodium 1 % topical gel 4 g EXT QID #30 grams 04/06/23 Rx (Voltaren Arthritis Pain) fluconazole 150 mg tablet 150 mg PO DAILY 1 dose #1 tab 04/06/23 Rx folic acid 1 mg tablet 1 mg PO QAM #30 tabs 04/06/23 Rx insulin aspart U-100 100 unit/mL See Rx Instructions .Route 04/06/23 Rx subcutaneous solution (Novolog .COMPLEX #30 mL U-100 Insulin aspart) ipratropium 0.5 mg-albuterol 3 mg 3 ml inhalation Q4H PRN COUGHING, 04/06/23 Rx (2.5 mg base)/3 mL nebulization WHEEZING, SHORTNESS OF BREATH #180 soln mL ipratropium 20 mcg-albuterol 100 1 puff inhalation QID #4 grams 04/06/23 Rx mcg/actuation mist for inhalation (Combivent Respimat) isosorbide mononitrate 30 mg 30 mg PO QAM #30 tabs 04/06/23 Rx tablet,extended release 24 hr levothyroxine 200 mcg tablet 200 mcg PO DAILYBB #30 tabs 04/06/23 Rx levothyroxine 25 mcg tablet 25 mcg PO DAILYBB #30 tabs 04/06/23 Rx lidocaine 5 % topical patch 1 patch transdermal DAILY@1800 #30 04/06/23 Rx ea magnesium oxide 400 mg PO QAM #30 tabs 04/06/23 Rx melatonin 3 mg tablet 6 mg PO HS #60 tabs 04/06/23 Rx metoprolol tartrate 25 mg tablet 12.5 mg PO BID #30 tabs 04/06/23 Rx multivitamin 1 tab PO QAM #30 tabs 04/06/23 Rx mupirocin 2 % topical ointment 1 applic EXT BID #15 grams 04/06/23 Rx nitroglycerin 0.4 mg sublingual 0.4 mg sublingual DIRECTED PRN 04/06/23 Rx tablet Chest Pain #25 tabs oxycodone 5 mg tablet 5 mg PO Q6H PRN pain #60 tabs 04/06/23 Rx pantoprazole 40 mg tablet,delayed 40 mg PO DAILYBB #30 tabs 04/06/23 Rx release potassium chloride 20 mEq 20 meq PO BID #60 tabs 04/06/23 01/24/23 Rx tablet,extended release sertraline 50 mg tablet 50 mg PO QAM #30 tabs 04/06/23 Rx spironolactone 25 mg tablet 25 mg PO QAM #30 tabs 04/06/23 Rx topiramate 100 mg tablet 100 mg PO QAM #30 tabs 04/06/23 Rx torsemide 10 mg tablet 10 mg PO BID #60 tabs 04/06/23 01/24/23 Rx Hospital Stay Data Consultations 01/24/23 14:27 ED Decision to Admit Stat Diagnostic Imagining Performed 01/31/23 14:59 US venous doppler LE RT Routine 03/09/23 07:00 US renal/blad retro comp Routine 03/15/23 17:20 CT abd pelvis wo con Stat Pending Results Patient Have Any Pending Studies at Discharge: No Discharge Instructions Given to Patient (Per Discharging Provider) Please continue on all the medications listed for you on discharge instructions. You have an upcoming appointment with Endocrinology to assist with diabetes management and getting insulin pump supplies. Please contact your [employer] supply company to resume shipments of supplies. It was a pleasure taking care of you! Best wishes Dr. Pa Total Time Total Time Spent Total Time Spent (In Minutes): 35 min Coding Level of Care Code 99881 INP/OBS DISCH >30 MIN Diagnoses Insulin-requiring or dependent type II diabetes mellitus E11.9; Z79.4 Ureterolithiasis N20.1 Back pain M54.9 Chronic diastolic congestive heart failure I50.32 Lesion of left [place] kidney N28.9 Ambulatory dysfunction R26.2 Physical deconditioning R53.81 Failure to thrive CKD (chronic kidney disease) N18.9 GERD (gastroesophageal reflux disease) K21.9 Chronic respiratory failure J96.10 Respiratory failure complication: unspecified whether with hypoxia or hypercapnia Dyslipidemia E78.5 Left knee pain M25.562 Anemia D64.9 Fracture of distal end of right femur S72.401A Morbid obesity with BMI of 60.0-69.9, adult E66.01; Z68.44 Seborrhea L21.9 Abrasion of leg, left S80.812A
== END 2023-04-06 13:45 | disposition home health service (06) | DRG 92 ==
LOC: ED 12:57 → 3W 14:14 → SUATTDRO 14:14 → 3W 17:42

== ENCOUNTER 2023-10-17 09:58 | Inpatient (IN) ==
--- NOTE | 2023-10-17 10:10 | Emergency Department Note ---
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 Patient with a long extensive history including respiratory issues for which she has a metal trach in place. Patient notes worsening shortness of breath the last few days. She was apparently getting increasingly weak today and increasingly needed O2 to trach. She was not having any severe chest pain or pressure-like symptoms. On arrival patient is feeling better as she had received DuoNeb in route. She is requiring oxygen to trach collar at about 6 L. She is not significantly short of breath she is not tachycardic I feel PE is unlikely and I think CT PE is not quite indicated at this time. Laboratory work-up does show a mildly elevated troponin. Otherwise labs look good. Chest x-ray without infiltrate. Bio fire was negative. Repeat troponin does show that troponin has increased from 24 to 64. Her EKG does show sinus rhythm without ischemia and some ectopy. I do not feel that heart alert is necessary nor would I necessarily start her on anticoagulant quite at this point. Given the increased troponin though I do think she will require further work-up and monitoring and I discussed case with hospitalist service for further management. Triage/Nursing Notes reviewed by Me Differential:Infection, dehydration, metabolic abnormality, hypo/hyperglycemia, electrolyte disturbance, anemia, hypoxia, cardiac sources, intracerebral event, toxicologic, neurologic, as well as other pathologies. Vital Signs: reviewed and remarkable for mild hypoxia Labs:ED labs Reviewed by me and remarkable for mildly elevated troponin which increased on repeat Imagin view chest x-ray no infiltrate or effusion appreciated as per my interpretation. EKG:Indication elevated troponin and shortness of breath. As per my interpretation. Sinus at 92 bpm with a first-degree AV block and a QTc of 479. There are PVCs noted. There is a right bundle branch block noted. No STEMI morphology. Compared to EKG from January 24, 2023 no significant change. Cardiac/Tele Monitoring: Cardiac Monitoring: An Order was placed for continuous cardiac monitoring. The monitor shows a rate of 90 with a sinus rhythm. Consults:[place] Hospitalist Plan: Disposition: Hospitalization Condition: Good History of Present Illness: 68-year-old female arrives for evaluation of shortness of breath. Worsening shortness of breath over the last 2 to 3 weeks. Notes she had been around her daughter's home health home care specialist who has been sick for the last 2 to 3 weeks as well. Patient states this morning she felt like she could not catch her breath. Unknown was called. She is given a nebulizer. Patient states she feels much better and has no further shortness of breath. She does not routinely use oxygen though is requiring some this morning. Denies any chest pain, shortness of breath, back pain, abdominal pain. Patient did collapse to the ground due to weakness but denies any injury. She has a right thigh fracture which has been ongoing for a year now. Denies any new pain in the thigh. Denies any headache, neck pain, fevers, chills, syncope or nor other concerning signs or symptoms. Past Medical History:See Below Home Medications:See Below Allergies:See Below Vitals:Blood Pressure: 120/74, Pulse 104, RR 22, T 36.8C, O2 92% on 4L Physical Exam: GENERAL: Patient is chronically unwell appearing and in moderate distress. NECK: metal trach in place RESPIRATORY: Mild tachypnea with some crackles bilaterally CARDIOVASCULAR: Tachy.No murmur appreciated. GASTROINTESTINAL: Abdomen soft, non-tender, no peritonitis. EXTREMITIES: Normal motion all extremities, no cyanosis, no edema. NEUROLOGIC: Alert and oriented. No focal neurologic deficits appreciated SKIN: No rash, no jaundice, no diaphoresis. PSYCH: Appropriate GCS: 15 ED Course: Times/Reassessments: Multiple repeat evaluations. Patient's heart rate is come down some likely initially elevated due to increased work of breathing but also the DuoNeb use. Abad Ellington MD Past Med/Surg History Medical History Adjustment disorder with depressed mood Ambulatory dysfunction Anxiety Atypical chest pain Breathlessness Cellulitis Chest pain CHF (congestive heart failure) Chronic kidney disease, stage 3 Chronic obstructive pulmonary disease CKD (chronic kidney disease) CKD stage 4 due to type 2 diabetes mellitus Coronary artery disease Dyslipidemia Fluid overload GERD (gastroesophageal reflux disease) HTN (hypertension) Hypothyroidism (acquired) Insulin-requiring or dependent type II diabetes mellitus Morbid obesity with BMI of 60.0-69.9, adult MRSA (methicillin resistant staph aureus) culture positive "sputum 11/2015" RASHAAD (obstructive sleep apnea) Right ventricular dysfunction Sepsis SOB (shortness of breath) Tinea unguium Tracheostomy dependence Type 2 diabetes mellitus Ureterolithiasis Vitamin D deficiency Surgical History History of appendectomy History of cholecystectomy History of hysterectomy History of tonsillectomy and adenoidectomy S/P IVC filter Family History Mother Coronary heart disease COPD (chronic obstructive pulmonary disease) Father Suicide Hung himself. Pt found him. Unknown Lung cancer Social History Smoking Status: Never smoker Tobacco Type: Cigarettes Second Hand Exposure: No; Do You Dip or Chew Tobacco: No; Hx Alcohol Use: No Hx Substance Use: No Preferred Language: Georgian Communication Ability: Effective Visual Impairment: Limited Outsole Splicer Required: No Beliefs That Will Affect Care: None marital status: Current Living Situation: Other Current Living Situation Comment: Lives with daughter Daniel current occupational status: disabled How many Children do You have: 1 Feels Safe at Home: Yes Assistive Devices: Bedside Commode, Walker and Wheelchair Allergies Allergies Allergy/AdvReac Type Severity Reaction Status Date / Time Penicillins Allergy Intermediate Hives Verified 09/01/23 10:43 amitriptyline Allergy Unknown ON EMBASSY Verified 09/01/23 10:43 OF HEARTHSIDE MED LIST doxycycline Allergy Unknown ON EMBASSY Verified 09/01/23 10:43 OF HEARTHSIDE MED LIST guaifenesin Allergy Unknown ON EMBASSY Verified 09/01/23 10:43 OF HEARTHSIDE MED LIST metformin Allergy Unknown ON EMBASSY Verified 09/01/23 10:43 OF HEARTHSIDE MED LIST phenylephrine Allergy Unknown ON EMBASSY Verified 09/01/23 10:43 OF HEARTHSIDE MED LIST pseudoephedrine Allergy Unknown ON EMBASSY Verified 09/01/23 10:43 OF HEARTHSIDE MED LIST tetracycline Allergy Unknown ON EMBASSY Verified 09/01/23 10:43 OF HEARTHSIDE MED LIST venlafaxine [From Effexor] Allergy Unknown ON EMBASSY Verified 09/01/23 10:43 OF HEARTHSIDE MED LIST gabapentin AdvReac Intermediate BECOMES Verified 09/01/23 10:43 AGGRESSIVE Home Meds Home Medications Medication Instructions Recorded Confirmed torsemide 10 mg tablet See Rx Instructions PO BID 07/08/23 10/17/23 fentanyl 12 mcg/hr transdermal 12 mcg transdermal Q72H 10/17/23 10/17/23 patch Previous Rx's Medication Instructions Recorded aspirin 81 mg tablet,delayed 81 mg PO QAM #30 tabs 04/06/23 release (Robert Low Dose Aspirin) atorvastatin 40 mg tablet 40 mg PO QPM #30 tabs 04/06/23 azithromycin 250 mg tablet 250 mg PO MoWeFr@0900 #12 tabs 04/06/23 bupropion HCl 100 mg tablet,12 hr 200 mg (2 x 100 mg) PO PM #90 ea 04/06/23 sustained-release diclofenac sodium 1 % topical gel 4 g EXT QID #30 grams 04/06/23 (Voltaren Arthritis Pain) folic acid 1 mg tablet 1 mg PO QAM #30 tabs 04/06/23 ipratropium 0.5 mg-albuterol 3 mg 3 ml inhalation Q4H PRN COUGHING, 04/06/23 (2.5 mg base)/3 mL nebulization WHEEZING, SHORTNESS OF BREATH #180 soln mL ipratropium 20 mcg-albuterol 100 1 puff inhalation QID #4 grams 04/06/23 mcg/actuation mist for inhalation (Combivent Respimat) isosorbide mononitrate 30 mg 30 mg PO QAM #30 tabs 04/06/23 tablet,extended release 24 hr levothyroxine 200 mcg tablet 200 mcg PO DAILYBB #30 tabs 04/06/23 levothyroxine 25 mcg tablet 25 mcg PO DAILYBB #30 tabs 04/06/23 magnesium oxide 400 mg PO QAM #30 tabs 04/06/23 melatonin 3 mg tablet 6 mg (2 x 3 mg) PO HS #60 tabs 04/06/23 metoprolol tartrate 25 mg tablet 12.5 mg (1/2 x 25 mg) PO BID #30 04/06/23 tabs multivitamin 1 tab PO QAM #30 tabs 04/06/23 nitroglycerin 0.4 mg sublingual 0.4 mg sublingual DIRECTED PRN 04/06/23 tablet Chest Pain #25 tabs pantoprazole 40 mg tablet,delayed 40 mg PO DAILYBB #30 tabs 04/06/23 release potassium chloride 20 mEq 20 meq PO BID #60 tabs 04/06/23 tablet,extended release sertraline 50 mg tablet 50 mg PO QAM #30 tabs 04/06/23 spironolactone 25 mg tablet 25 mg PO QAM #30 tabs 04/06/23 topiramate 100 mg tablet 100 mg PO QAM #30 tabs 04/06/23 blood sugar diagnostic (OneTouch #300 ea 07/21/23 Ultra Test strips) blood-glucose meter (OneTouch #1 ea 07/21/23 Ultra2 Meter) insulin aspart U-100 100 unit/mL 170 unit (1.7 mL) subcut DAILY #4 08/26/23 (3 mL) subcutaneous pen (Novolog syringes FlexPen U-100 Insulin aspart) insulin aspart U-100 100 unit/mL See Rx Instructions .Route DAILY 08/26/23 subcutaneous solution (Novolog #9 vials U-100 Insulin aspart) pen needle, diabetic 32 gauge x #150 ea 08/26/23" (BD Kaitlin 2nd Gen Pen Needle) pen needle, diabetic 32 gauge x #50 ea 08/26/23" (BD Kaitlin 2nd Gen Pen Needle) empagliflozin 10 mg tablet 10 mg PO DAILY #30 tabs 10/07/23 (Jardiance) Results & Data (ED) Vital Signs Vital Signs - 24 hr 10/17/23 10:23 10/17/23 10:36 10/17/23 10:43 Temperature 36.8 C Temperature Source Oral Pulse Rate 97 H 97 H Pulse Rate [Right Finger] Respiratory Rate 22 Respiratory Effort / Characteristics Respiratory Depth Normal Blood Pressure 112/64 Blood Pressure [Left Arm] Blood Pressure Mean 80 Blood Pressure Mean [Left Arm] Pulse Oximetry 87 L Oxygen Delivery Method Room Air Room Air Oxygen Flow Rate Sepsis Recent Fever Within 48 Hours No Sepsis New/Unexplained Change in Mental Status No Sepsis Action Taken by Nursing No Action Required Oxygen Flow Rate - Titration 10/17/23 10:50 10/17/23 11:48 10/17/23 12:44 Temperature Temperature Source Pulse Rate Pulse Rate [Right Finger] 92 H 92 H Respiratory Rate 18 20 Respiratory Effort / Characteristics Non-Labored Non-Labored Respiratory Depth Normal Normal Blood Pressure Blood Pressure [Left Arm] 137/71 142/73 H Blood Pressure Mean Blood Pressure Mean [Left Arm] 93 96 Pulse Oximetry 95 93 90 Oxygen Delivery Method Room Air Trach Collar Trach Collar Trach Collar Oxygen Flow Rate 87 6 6 Sepsis Recent Fever Within 48 Hours Sepsis New/Unexplained Change in Mental Status Sepsis Action Taken by Nursing Oxygen Flow Rate - Titration 5 Laboratory Data 10/17/23 10:08 10/17/23 10:08 Lab Results 10/17/23 10/17/23 10/17/23 Range/Units 10:07 10:08 11:57 WBC 12.52 H (4.8-10.8) K/ul RBC 4.55 (4.20-5.40) M/uL Hgb 11.8 L (12.0-16.0) g/dl Hct 42.2 (37.0-47.0) % MCV 92.7 (80.0-100.0) fL MCH 25.9 (25.0-34.0) pg MCHC 28.0 L (32.0-36.0) g/dL RDW Std Deviation 56.3 H (36.4-46.3) fL RDW Coeff of Amee 16.5 H (11.5-14.5) % Plt Count 232 (130-400) K/uL MPV 9.3 L (9.4-12.4) fL Immature Gran % (Auto) 0.7 % Neut % (Auto) 82.2 % Lymph % (Auto) 8.9 % [place] % (Auto) 6.6 % Eos % (Auto) 1.2 % Baso % (Auto) 0.4 % Neut # (Auto) 10.29 H (1.40-6.50) K/uL Lymph # (Auto) 1.11 L (1.20-3.40) K/uL [place] # (Auto) 0.83 H (0.11-0.59) K/uL Eos # (Auto) 0.15 (0.00-0.50) K/uL Baso # (Auto) 0.05 (0.00-0.20) K/uL Immature Gran # (Auto) 0.09 (0.01-0.20) K/uL Polychromasia 1+ Sodium 139 (136-145) mmol/L Potassium 4.2 (3.5-5.1) mmol/L Chloride 106 (98-107) mmol/L Carbon Dioxide 26 (21-32) mmol/L Anion Gap 7 (3-11) BUN 19 (6-23) mg/dl Creatinine 1.41 H (0.6-1.2) mg/dl Est Cr Clr Drug Dosing Not Reportable Est GFR ( Amer) 44.6 ml/min Est GFR (Non-Af Amer) 38.5 ml/min BUN/Creatinine Ratio 13.5 (10-20) Glucose 197 H (70-99(Fasting)) mg/dl Calcium 8.9 (8.6-10.3) mg/dl Troponin I High Sens 25.9 H 64.1 H* D (0-14) pg/ml B-Natriuretic Peptide (0-100) pg/ml Procalcitonin (0-0.5) ng/ml Adenovirus (PCR) Not Detected (NotDetected) B. pertussis DNA (PCR) Not Detected (NotDetected) B.parapertussis DNA PCR Not Detected (NotDetected) C. pneumoniae DNA (PCR) Not Detected (NotDetected) Coronavirus OC43 (PCR) Not Detected (NotDetected) Coronavirus HKU1 (PCR) Not Detected (NotDetected) Coronavirus 229E (PCR) Not Detected (NotDetected) SARS-CoV-2 (PCR) Not Detected (NotDetected) Coronavirus NL63 (PCR) Not Detected (NotDetected) Human Metapneumovir PCR Not Detected (NotDetected) Influenza Type A (PCR) Not Detected (NotDetected) Influenza Type B (PCR) Not Detected (NotDetected) M. pneumoniae (PCR) Not Detected (NotDetected) Parainfluenza 1 (PCR) Not Detected (NotDetected) Parainfluenza 2 (PCR) Not Detected (NotDetected) Parainfluenza 3 (PCR) Not Detected (NotDetected) Parainfluenza 4 (PCR) Not Detected (NotDetected) RSV (PCR) Not Detected (NotDetected) Entero/Rhino (PCR) Not Detected (NotDetected) 10/17/23 Range/Units 14:10 WBC (4.8-10.8) K/ul RBC (4.20-5.40) M/uL Hgb (12.0-16.0) g/dl Hct (37.0-47.0) % MCV (80.0-100.0) fL MCH (25.0-34.0) pg MCHC (32.0-36.0) g/dL RDW Std Deviation (36.4-46.3) fL RDW Coeff of Amee (11.5-14.5) % Plt Count (130-400) K/uL MPV (9.4-12.4) fL Immature Gran % (Auto) % Neut % (Auto) % Lymph % (Auto) % [place] % (Auto) % Eos % (Auto) % Baso % (Auto) % Neut # (Auto) (1.40-6.50) K/uL Lymph # (Auto) (1.20-3.40) K/uL [place] # (Auto) (0.11-0.59) K/uL Eos # (Auto) (0.00-0.50) K/uL Baso # (Auto) (0.00-0.20) K/uL Immature Gran # (Auto) (0.01-0.20) K/uL Polychromasia Sodium (136-145) mmol/L Potassium (3.5-5.1) mmol/L Chloride (98-107) mmol/L Carbon Dioxide (21-32) mmol/L Anion Gap (3-11) BUN (6-23) mg/dl Creatinine (0.6-1.2) mg/dl Est Cr Clr Drug Dosing Est GFR ( Amer) ml/min Est GFR (Non-Af Amer) ml/min BUN/Creatinine Ratio (10-20) Glucose (70-99(Fasting)) mg/dl Calcium (8.6-10.3) mg/dl Troponin I High Sens 79.4 H* D (0-14) pg/ml B-Natriuretic Peptide 87 (0-100) pg/ml Procalcitonin < 0.05 (0-0.5) ng/ml Adenovirus (PCR) (NotDetected) B. pertussis DNA (PCR) (NotDetected) B.parapertussis DNA PCR (NotDetected) C. pneumoniae DNA (PCR) (NotDetected) Coronavirus OC43 (PCR) (NotDetected) Coronavirus HKU1 (PCR) (NotDetected) Coronavirus 229E (PCR) (NotDetected) SARS-CoV-2 (PCR) (NotDetected) Coronavirus NL63 (PCR) (NotDetected) Human Metapneumovir PCR (NotDetected) Influenza Type A (PCR) (NotDetected) Influenza Type B (PCR) (NotDetected) M. pneumoniae (PCR) (NotDetected) Parainfluenza 1 (PCR) (NotDetected) Parainfluenza 2 (PCR) (NotDetected) Parainfluenza 3 (PCR) (NotDetected) Parainfluenza 4 (PCR) (NotDetected) RSV (PCR) (NotDetected) Entero/Rhino (PCR) (NotDetected) Administered Medications Insulin Glargine (Lantus Per Unit Charge) 50 units SQ DAILY ASIYA Stop: 11/16/23 15:29 Last Admin: 10/17/23 15:17 Dose: 50 units Documented By: BRIAN Co-signed By: MES Discontinued Medications Lidocaine (Lidocaine 5% 1 Patch) 1 patch TD NOW STA Stop: 10/17/23 14:20 Last Admin: 10/17/23 15:16 Dose: 1 patch Documented By: NRB Imaging Data Radiologist's Impression: Chest X-Ray 10/17/23 10:07 XR chest 1V portable HISTORY: 68 years-old Female shortness of breath acute shortness of breath COMPARISON: Chest 03/07/2023 TECHNIQUE: AP view of the chest FINDINGS: Cardiac silhouette is enlarged. Pulmonary vascular congestion. Unchanged positioning of the tracheostomy cannula. No pneumothorax, large pleural effusion or lobar airspace consolidation. IMPRESSION: Cardiomegaly with pulmonary vascular congestion. ACT 112: Negative or not required by law. The above report was generated using voice recognition software. It may contain grammatical, syntax or spelling errors. Electronically signed by: Robbie Henderson M.D. 10/17/2023 10:26 AM Discharge Plan Visit Data Chief Complaint: Respiratory Problems ED Provider: Abad Ellington Discharge Problem: Acute respiratory distress, Elevated troponin Forms Stand Alone Forms: [facility] Prescriptions Prescriptions: No Action (DME) OneTouch Ultra Test Strip See Rx Instructions .Route Qty: 300 3RF Rx Instructions: As directed for times per day to monitor blood glucose (DME) blood-glucose meter [OneTouch Ultra2 Meter] [facility] See Rx Instructions .Route Qty: 1 0RF Rx Instructions: As directed Jardiance 10 mg tablet 10 mg PO DAILY Qty: 30 5RF Rx Instructions: Take one tablet daily by mouth. torsemide 10 mg tablet See Rx Instructions PO BID Rx Instructions: 25mg am,5mg pm orally twice a day; TAKES AT 0700 & 1500 25mg am and 5mg pm insulin aspart U-100 [Novolog FlexPen U-100 Insulin] 100 unit/mL (3 mL) insulin pen 170 unit subcut DAILY MDD 170 Qty: 4 5RF Rx Instructions: To be used for pump failure. To be used for an insulin to carb ratio and to be used for a pre meal sliding scale. (DME) pen needle, diabetic [BD Kaitlin 2nd Gen Pen Needle] 32 gauge x 5/32" needle See Rx Instructions miscellaneous .MEDSUPPLY Qty: 50 0RF Rx Instructions: As directed insulin aspart U-100 [Novolog U-100 Insulin aspart] 100 unit/mL solution See Rx Instructions .ROUTE DAILY Qty: 9 6RF Rx Instructions: For insulin pump 300 units a day. (DME) pen needle, diabetic [BD Kaitlin 2nd Gen Pen Needle] 32 gauge x 5/32" needle See Rx Instructions miscellaneous .MEDSUPPLY Qty: 150 5RF Rx Instructions: change new pen 5x a day multivitamin Tablet 1 tab PO QAM Qty: 30 1RF atorvastatin 40 mg tablet 40 mg PO QPM Qty: 30 1RF ipratropium-albuterol 0.5 mg-3 mg(2.5 mg base)/3 mL Solution For Nebulization 3 ml INHALATION Q4H PRN (Reason: COUGHING, WHEEZING, SHORTNESS OF BREATH) Qty: 180 1RF azithromycin 250 mg Tablet 250 mg PO MoWeFr@0900 Qty: 12 1RF isosorbide mononitrate 30 mg Tablet Extended Release 24 Hr 30 mg PO QAM Qty: 30 1RF melatonin 3 mg Tablet 6 mg PO HS Qty: 60 1RF Rx Instructions: OTC aspirin [Robert Low Dose Aspirin] 81 mg Tablet,Delayed Release (Dr/Ec) 81 mg PO QAM Qty: 30 1RF spironolactone 25 mg Tablet 25 mg PO QAM Qty: 30 1RF bupropion HCl 100 mg Tablet Sustained-Release 12 Hr 200 mg PO PM Qty: 90 0RF Rx Instructions: and take 100mg po qAM levothyroxine 25 mcg Tablet 25 mcg PO DAILYBB Qty: 30 1RF Rx Instructions: TOTAL DOSE 225 MCG--TAKES WITH 200 MCG TAB. pantoprazole 40 mg Tablet,Delayed Release (Dr/Ec) 40 mg PO DAILYBB Qty: 30 1RF nitroglycerin 0.4 mg tablet, sublingual 0.4 mg SL DIRECTED PRN (Reason: Chest Pain) Qty: 25 0RF folic acid 1 mg Tablet 1 mg PO QAM Qty: 30 1RF levothyroxine 200 mcg Tablet 200 mcg PO DAILYBB Qty: 30 1RF Rx Instructions: TOTAL DOSE 225 MCG--TAKES WITH 25 MCG TAB. topiramate 100 mg Tablet 100 mg PO QAM Qty: 30 1RF sertraline 50 mg Tablet 50 mg PO QAM Qty: 30 1RF metoprolol tartrate 25 mg Tablet 12.5 mg PO BID Qty: 30 1RF diclofenac sodium [Voltaren Arthritis Pain] 1 % Gel 4 g EXT QID Qty: 30 1RF potassium chloride 20 mEq Tablet Extended Release 20 meq PO BID Qty: 60 1RF Combivent Respimat 20-100 mcg/actuation Mist 1 puff INHALATION QID Qty: 4 1RF Rx Instructions: space evenly during waking hours magnesium oxide 400 mg magnesium Tablet 400 mg PO QAM Qty: 30 1RF fentanyl 12 mcg/hr patch 72 hour 12 mcg transdermal Q72H Referrals Referrals: Ofe Mcgee MD [Primary Care Provider] -
--- NOTE | 2023-10-17 10:27 | XRay Report ---
XR chest 1V portable HISTORY: 68 years-old Female shortness of breath acute shortness of breath COMPARISON: Chest 03/07/2023 TECHNIQUE: AP view of the chest FINDINGS: Cardiac silhouette is enlarged. Pulmonary vascular congestion. Unchanged positioning of the tracheost chepe cannula. No pneumothorax, large pleural effusion or lobar airspace consolidation. IMPRESSION: Cardiomegaly with pulmonary vascular congestion. ACT 112: Negative or not required by law. The above report was generated using voice recognition software. It may contain grammatical, syntax o r spelling errors. Electronically signed by: Robbie Henderson M.D. 10/17/2023 10:26 AM
[2023-10-17 10:44] LABS: Anion Gap 7 (3-11); BUN Creatinine Ratio 13.5 (10-20); Blood Urea Nitrogen 19 mg/dl (6-23); Calcium 8.9 mg/dl (8.6-10.3); Carbon Dioxide 26 mmol/L (21-32); Chloride 106 mmol/L (98-107); Est GFR (African American) 44.6 ml/min; Est GFR (Non-African American) 38.5 ml/min; Glucose 197 mg/dl (70-99(Fasting)); Potassium 4.2 mmol/L (3.5-5.1); Sodium 139 mmol/L (136-145)
[2023-10-17 10:51] LABS: Troponin I High Sensitivity 25.9 pg/ml (0-14)
[2023-10-17 10:54] LABS: Hematocrit (blood only) 42.2 % (37.0-47.0); Hemoglobin 11.8 g/dl (12.0-16.0); Mean Corpuscular Hemoglobin 25.9 pg (25.0-34.0); Mean Corpuscular Volume 92.7 fL (80.0-100.0); Mean Platelet Volume 9.3 fL (9.4-12.4); Platelet Count 232 K/uL (130-400); RDW Coefficient of Variation 16.5 % (11.5-14.5); RDW Standard Deviation 56.3 fL (36.4-46.3); Red Blood Count 4.55 M/uL (4.20-5.40); White Blood Count 12.52 K/ul (4.8-10.8)
[2023-10-17 11:00] LABS: Basophils # (auto) 0.05 K/uL (0.00-0.20); Basophils % (auto) 0.4 %; Eosinophils # (auto) 0.15 K/uL (0.00-0.50); Eosinophils % (auto) 1.2 %; Immature Granulocytes # (auto) 0.09 K/uL (0.01-0.20); Immature Granulocytes % (auto) 0.7 %; Lymphocytes # (auto) 1.11 K/uL (1.20-3.40); Lymphocytes % (auto) 8.9 %; Monocytes # (auto) 0.83 K/uL (0.11-0.59); Monocytes % (auto) 6.6 %; Neutrophils # (auto) 10.29 K/uL (1.40-6.50); Neutrophils % (auto) 82.2 %; Polychromasia 1+
[2023-10-17 11:23] LABS: Adenovirus PCR Not Detected (NotDetected); Bordetella parapertussis PCR Not Detected (NotDetected); Bordetella pertussis PCR Not Detected (NotDetected); Chlamydia pneumoniae PCR Not Detected (NotDetected); Coronavirus 229E PCR Not Detected (NotDetected); Coronavirus CoV-2 (COVID19)PCR Not Detected (NotDetected); Coronavirus HKU1 PCR Not Detected (NotDetected); Coronavirus NL63 PCR Not Detected (NotDetected); Coronavirus OC43PCR Not Detected (NotDetected); Human Metapneumovirus PCR Not Detected (NotDetected); Influenza A PCR Not Detected (NotDetected); Influenza B PCR Not Detected (NotDetected); Mycoplasma pneumoniae PCR Not Detected (NotDetected); Parainfluenza Virus 1 PCR Not Detected (NotDetected); Parainfluenza Virus 2 PCR Not Detected (NotDetected); Parainfluenza Virus 3 PCR Not Detected (NotDetected); Parainfluenza Virus 4 PCR Not Detected (NotDetected); Respiratory Syncytial VirusPCR Not Detected (NotDetected); Rhinovirus/Enterovirus PCR Not Detected (NotDetected)
--- OUTSIDE RECORDS SUMMARY | 2023-10-17 12:18 | External Medical Summary | Continuity of Care Document ---
Author Name Unknown Organization [facility] [address] [id number] Address [address] [place] [phone] Care Team Providers Care Stock Handler Name Role Phone McgeeOfe Primary Care Physician [phone] Encounter [facility] [id number] Date(s): 08/09/23 - 08/09/23 [facility] [address] [place] [id number] [facility] [address] [place] [id number] Encounter Diagnosis Morbid obesity(Discharge Diagnosis) - 07/22/23 Ambulatory dysfunction(Discharge Diagnosis) - 08/09/23 Displaced supracondylar fracture without intracondylar extension of lower end of right femur, subsequent encounter for closed fracture with nonunion(Discharge Diagnosis) - 07/22/23 Discharge Disposition: Home or Self Care Attending Physician: MD Georges, Solomon Smith Referring Physician: MD Que, Rodolfo Smith Allergies, Adverse Reactions, Alerts Substance Reaction Severity Status doxycycline unknown Mild Active amoxicillin Rash Mild Active penicillin Hives Mild Active Duratuss DM unknown Mild Active Neurontin Violent behavior Moderate Active Glucophage Nausea Mild Active Elavil Violent behavior Moderate Active Lyrica "jerks", loss of balance causing fall Active Immunizations Given and Recorded Vaccine Date Status Refusal Reason influenza virus vaccine, inactivated 11/19/21 Give n influenza virus vaccine, inactivated 08/23/17 Govind rded influenza virus vaccine, inactivated 09/27/16 Govind rded influenza virus vaccine, inactivated 08/26/15 Govind rded influenza virus vaccine, inactivated 08/15/14 Govind rded influenza virus vaccine, inactivated 08/23/13 Govind rded influenza virus vaccine, inactivated 07/25/12 Govind rded influenza virus vaccine, inactivated 08/27/11 Govind rded influenza virus vaccine, inactivated 08/28/10 Govind rded SARS-CoV-2 (COVID-19) mRNA BNT-162b2 vax 03/05/21 Recorded SARS-CoV-2 (COVID-19) mRNA BNT-162b2 vax 02/12/21 Recorded pneumococcal 23-valent vaccine 1 09/27/16 Recorded pneumococcal 13-valent vaccine 04/29/15 Recorded tetanus/diphtheria/pertuss, acel (Tdap) 2 07/29/11 Recorded 1Result Comment: 2020-01-15: Historical information-source unspecified 2Result Comment: 2020-01-15: Historical information-source unspecified Medications acetaminophen 325 mg oral tablet Start: 05/20/21 10:40:00 EDT, 650 Unknown, Oral, 1 Refill(s) Start Date: 05/20/21 Status: Ordered Albuterol (Eqv-ProAir HFA) 90 mcg/inh inhalation aerosol Start: 07/20/23 20:10:00 EDT, 2 puff, inhaled, q6h, Disp# 6.7 g, Refills: 5, Pharmacy: [id number] Start Date: 07/20/23 Status: Ordered aspirin 81 mg oral delayed release tablet Start: 05/20/21 10:40:00 EDT, 81 Unknown, Oral, 1 Refill(s) Start Date: 05/20/21 Status: Ordered atorvastatin 40 mg oral tablet Start: 06/02/23 13:33:00 EDT, 1 tab, PO, Daily, Disp# 30 tab, Refills: 3, Pharmacy: [id number] Start Date: 06/02/23 Stop Date: 09/30/23 Status: Ordered azithromycin 250 mg oral tablet Start: 06/02/23 13:29:00 EDT, See Instructions, Disp# 30 tab, Refills: 1, 1 tab PO Tuesday, Tuesday and Tuesday, Pharmacy: [id number] Start Date: 06/02/23 Status: Ordered buPROPion 100 mg/12 hours (SR) oral tablet, extended release Start: 07/29/23 12:06:00 EDT, See Instructions, Disp# 90 tab, Refills: 1, take 1 tablet by mouth inthe morning and 2 tablets in the evening, Pharmacy: [id number] Start Date: 07/29/23 Status: Ordered Combivent Respimat 20 mcg-100 mcg/inh inhalation aerosol Start: 06/02/23 13:28:00 EDT, 1 puff, inhaled, q4h, Disp# 1 each, Refills: 2, Pharmacy: [id number] Start Date: 06/02/23 Status: Ordered docusate sodium 100 mg oral capsule Start: 05/20/21 10:40:00 EDT, 100 Unknown, Oral, 1 Refill(s) Start Date: 05/20/21 Status: Ordered folic acid 1 mg oral tablet Start: 07/29/23 12:06:00 EDT, See Instructions, Disp# 30 tab, Refills: 1, TAKE 1 TABLET BY MOUTH ONCE DAILY, Pharmacy: [id number] Start Date: 07/29/23 Status: Ordered furosemide Start: 05/26/21 9:59:00 EDT, 10 mg =, PO, Daily Start Date: 05/26/21 Status: Ordered HumaLOG Vial 100 units/mL injectable solution Start: 01/15/20 13:18:00 EST, unit =, subQ, Daily, Per pump Start Date: 01/15/20 Status: Ordered isosorbide mononitrate 60 mg oral tablet, extended release Start: 06/25/23 15:50:00 EDT, See Instructions, Disp# 30 tab, Refills: 1, TAKE ONE TABLET BY MOUTH EVERY MORNING, Pharmacy: [id number] Start Date: 06/25/23 Status: Ordered Jardiance 25 mg oral tablet See Instructions, Disp# 30 tab, Refills: 5, TAKE ONE TABLET BY MOUTH EVERY MORNING , Pharmacy: [facility][id number] Start Date: 11/02/21 Status: Ordered levothyroxine 200 mcg (0.2 mg) oral tablet Start: 07/28/23 13:44:00 EDT, 1 tab, PO, Daily, Disp# 30 tab, Refills: 1, Pharmacy: [id number] Start Date: 07/28/23 Stop Date: 09/26/23 Status: Ordered levothyroxine 25 mcg (0.025 mg) oral tablet Start: 07/28/23 13:44:00 EDT, 1 tab, PO, Daily, Disp# 30 tab, Refills: 1, Note to Pharmacy: should be on 225 mcg, Pharmacy: [id number] Start Date: 07/28/23 Stop Date: 09/26/23 Status: Ordered loratadine 10 mg oral tablet Start: 05/20/21 10:40:00 EDT, 10 Unknown, Oral, 1 Refill(s) Start Date: 05/20/21 Status: Ordered metOLazone 2.5 mg oral tablet Start: 03/03/21 10:07:00 EDT Start Date: 03/03/21 Status: Ordered Metoprolol Tartrate 25 mg oral tablet Start: 07/29/23 12:06:00 EDT, See Instructions, Disp# 60 tab, Refills: 1, TAKE 1 TABLET BY MOUTH TWICE DAILY, Pharmacy: [id number] Start Date: 07/29/23 Status: Ordered montelukast 10 mg oral tablet Start: 06/02/23 13:35:00 EDT, See Instructions, Disp# 30 tab, Refills: 11, TAKE 1 TABLET BY MOUTH EVERY EVENING, Pharmacy: [id number] Start Date: 06/02/23 Status: Ordered nitroglycerin 0.4 mg sublingual tablet Start: 05/07/21 10:58:00 EDT, 1 tab, SL, q5min, Disp# 25 tab, PRN: as needed for chest pain Start Date: 05/07/21 Status: Ordered oxyCODONE 5 mg oral tablet Start: 07/07/23 10:37:00 EDT, 1 tab, PO, q6h, Disp# 40 tab, Refills: 0, PRN: pain - severe (7-10), Pharmacy: [id number] Start Date: 07/07/23 Status: Ordered pantoprazole 40 mg oral delayed release tablet Start: 07/29/23 12:06:00 EDT, See Instructions, Disp# 30 tab, Refills: 1, TAKE 1 TABLET BY MOUTH ONCE DAILY, Pharmacy: [facility] Start Date: 07/29/23 Status: Ordered Potassium Chloride (Npv-Avek-Gra 10) 10 mEq oral tablet, extended release Start: 07/29/23 12:06:00 EDT, See Instructions, Disp# 60 tab, Refills: 1, TAKE 1 TABLET BY MOUTH TWICE DAILY, Pharmacy: [facility] Start Date: 07/29/23 Status: Ordered Salonpas Maximum Strength 4% topical film Start: 09/10/20 10:40:00 EDT, See Instructions, Disp# 30 film, Refills: 3, do not leave patch on for more than 8 hours at a time, Pharmacy: [facility] Start Date: 09/10/20 Status: Ordered spironolactone 25 mg oral tablet Start: 06/25/23 15:50:00 EDT, 1 tab, PO, Daily, Disp# 30 tab, Refills: 1, Pharmacy: [id number] Start Date: 06/25/23 Stop Date: 08/24/23 Status: Ordered topiramate 100 mg oral tablet Start: 07/29/23 12:06:00 EDT, See Instructions, Disp# 90 tab, Refills: 1, TAKE ONE TABLET BY MOUTH EVERY MORNING AND TWO TABLETS AT BEDTIME., Pharmacy: [id number] Start Date: 07/29/23 Status: Ordered torsemide 20 mg oral tablet Start: 01/15/20 13:17:00 EST, 2 tab, PO, Daily Start Date: 01/15/20 Status: Ordered Voltaren 1% topical gel Start: 06/02/23 13:30:00 EDT, 2 g =, topical, qid, Disp# 100 g, Refills: 2, not to exceed 16 grams/day/single joint of lower extremities, Pharmacy: [id number] Start Date: 06/02/23 Stop Date: 08/31/23 Status: Ordered Mental Status 08/09/23 Barriers to Learning one year None evide nt Mandatory Health Literacy Documentation Yes Health Literacy Communication Barriers N ever Primary Language Greenlandic Problem List Condition Confirmation Course Effective Dates Status H ealth Status Informant Anemia Confirmed Active Anxiety Confirmed Active Arthritis Confirmed Active Ingrown toenail of both feet Confirmed Active Bronchiectasis Confirmed Active Chronic back pain Confirmed Active CKD (chronic kidney disease), stage IV Confirmed Active Chronic right heart failure Confirmed Active Femur fracture, right Confirmed Active Coronary artery disease Confirmed Active Depression Confirmed Active Insulin dependent diabetes mellitus 1 Confirmed Active Diastolic heart failure 2 Confirmed Active Obesity hypoventilation syndrome Confirmed Active Right foot pain Confirmed Active Distal radius fracture, left Confirmed Active Glaucoma Confirmed Active Status post tracheostomy 3 Confirmed Active Hoarding behavior Confirmed Active Hyperlipidemia Confirmed Active Hypertension Confirmed Active Hypothyroid Confirmed Active Nocturnal hypoxia 4 Confirmed Active Impaired mobility Confirmed Active Left lumbar radiculopathy Confirmed Active Ovarian cancer Confirmed Active Migraine Confirmed Active Morbid obesity Confirmed Active Diabetic neuropathy Confirmed Active Left knee DJD Confirmed Active Pain of right great toe Confirmed Active Severe persistent asthma 5 Confirmed Active Ambulatory dysfunction Confirmed Active 1sees endocrine - [facility] 2Dr. Donell 3Dr. Bradley - Fidelia Wick 4On 5L oxygen at night. 5Steve Malin - [facility] [place] pulmonary Diagnosis Diagnosis Type Effective Dates Health Status Clinical Service Informant Displaced supracondylar fracture without intracondylar extension of lower end of right femur, subsequent encounter for closed fracture with nonunion Discharge Diagnosis 07/22/23 Morbid obesity Discharge Diagnosis 07/22/23 Ambulatory dysfunction Discharge Diagnosis 08/09/23 Procedures Procedure Date Related Diagnosis Body Site Status Echocardiogram 1 10/02/22 Complete d CAT scan 2 03/25/22 Completed X-ray 3 03/25/22 Completed X-ray 4 03/25/22 Completed Chest x-ray 5 03/23/22 Completed X-ray 6 02/25/22 Completed Chest X-ray 7 11/25/21 Completed Plain X-ray of left forearm 8 11/25/21 Completed Chest X-ray 9 06/08/21 Completed Echocardiogram 10 04/15/21 Complet ed LOWER EXTREMITY STUDY 11 04/14/21 Completed Venous doppler LE BI 12 04/14/21 C ompleted Diabetic retinal eye exam 13 07/07/20 Completed X-ray of right knee 14 06/20/20 Co mpleted Duplex scan of lower limb veins 15 06/23/18 Completed Chest x-ray 16 06/12/18 Completed Chest x-ray 17 02/27/18 Completed Chest x-ray 18 01/19/18 Completed Chest x-ray 19 01/16/18 Completed Chest x-ray 20 01/15/18 Completed Chest x-ray 21 01/10/18 Completed Diagnostic mammogram 22 09/30/17 C ompleted Chest x-ray 23 01/15/16 Completed H/O: tracheostomy 24 02/29/08 Comp leted Appendicectomy Completed Cholecystectomy Completed RENE BSO - Total abdominal hy sterectomy and bilateral salpingo-oophorectomy 25 Completed Tonsillectomy and adenoidectomy Completed 1compared with 04/15/2021 study, mild decline in the left and right ventricular systolic function, otherwise no significant change, 2femur, knee and pelvis 1. acute, comminuted, displaced, impacted and angulated fracture of the distal femoral disphysis and metaphysis. there is no fracture extension into the feoral condyles 2. acute minimally displaced fracture of the fibular head and neck, partially imaged. 3. ill-defined linear lucency of the right sacral ala is likely artifactual. a subtle acute fracture is considered less likely. 4. moderate sized lipohemarthrosis of the knee 5. partially imaged 2.7 cm left renal lesion is new from 2006. this could be correlated with a followup ultrasound to exclude renal cell carcinoma 3comminuted and displaced fracture involving the distal metadiaphysis of the right femur 4right fibula 1. soft tissue swelling with no radiographic evidence of right tibial or fibular fracture. 2. age indeterminant avulsion fracture along the dorsal aspect of the talus. correlate for point tenderness. 3. large heel spurs 5Cardiomegaly with improvement in the mild pulmonary vascular congestion. 6cardiomegaly with mild interstitial pulmonary edema. this has progressed in the interval. 7impression: Cardiomegaly with no acute cardiopulmonary abnormality 8IMPRESSION: 1. Impacted and comminuted intra-articular fracture of the distal radial metaphysis as above. 2. No additional fracture is identified involving the wrist or forearm. 91.Minimal left basilar opacity which favors atelectasis 2. cardiomegaly without evidence for pulmonary edema 10interpretation Left ventrical systolic function is normal No jair wall motion abnormalities noted. There is mild concentricleft ventricular hypertrophy Ejection fraction = 55-60% No obvious valvular pathology Comparied with study of 04/07/2019 no significant change 11No evidence of focal occulsion or significant stenosis on this limited exam 12Impression: 1. Moderately limited study from a technical standpoint. 2. No evidence of lower extremity DVT. 13Impression/Plan: 1. Diabetes, type II with ocular complications, insulin dependent. 2. Severe nonproliferative diabetic retinopathy OU. 3. Diabetic macular edema OD>OS treat and maintain interval. 4. Nuclear sclerosis OU. 14Moderate degenerative change all major joint compartments. No acute process. 15No deep venous thrombosis detected 16Cardiomegaly with findings of developing congestive heart failure. 171. Cardiomegaly with volume overload. 181. Stable cardiomegaly. 2. Interval improvement in pulmonary vascular congestion. 3. No lobar consolidation. 191. Cardiomegaly with suggestion of volume overload and mild pulmonary edema. Differential considerations include aspiration or infection. 2. Small pleural effusions may also be present. 201. Degraded examination as above. 2. Cardiomegaly. Mild pulmonary vascular congestion is suggested. 3. No airspace consolidation or large pleural effusion is identified. 21No acute cardiopulmonary findings. Stable cardiomegaly. No change in appearance of the chest. 22Right Breast: Benign, no evidence of malignancy. Normal interval follow-up is recommended in 12 months. 231. Persistent cardiomegaly. 2. Increased basilar markings. While likely related to technical factors and an infectious/inflammatory process cannot be excluded. [id number] 25stg 4 ovarian cancer Social History Social History Type Response Tobacco 1 Smoking Status Never smoked cigaret charito Sex Female 1none Ortho Outpt Note * Jia Laguna: PERFORM, MODIFY MD Georges, Solomon Smith: MODIFY Event Display: Ortho Outpt Note Authored Date: Name:ANN JACKSON Patient Number:[id number] :1955 Date of Service:08/09/2023 CHIEF COMPLAINT: Follow-up right distal femur fracture [facility]. Patient reports her leg hurts terribly from her knee radiating distally.She is currently prescribed Oxycodone 5 mg to take every 6 hours which is not improving her symptoms or decreasing her pain to a manageable level. Patient also mentions her current wheelchair is not sufficient for her current needs and isabella prefer an electric wheelchair so that she can get around the house and be more independent. She is not interested in doing anything more about the right leg. Patient was hospitalized for over 1 year but has since returned home where she has a apple press operator caregiver and a lift chair that helps her get around. PHYSICAL EXAM: Focus on the right lower extremity: Tenderness of right distal thigh and knee area instability on varus and valgus stress of right knee area No significant swelling She can activate right foot dorsiflexion and plantarflexion IMPRESSION: Right distal femur fracture, nonunion PLAN: Discussed that surgical intervention to promote healing of her distal femur fracture has many complexities and risk of stabilizing femur fracture. If this interests Rachid would refer her to a tertiary care Medical Center. Order for power wheelchair provided to obtain at [facility] or [facility] which I discussed willbe a process involving paperwork and correlation with insurance. One of her major concerns waswheelchair mobility. Patient report she receives oxycodone for PCP and expresses concerns it is not meeting her level ofpain.Recommend discussing pain medication with Dr. Grey as I do not typically prescribe chronic pain medication. Follow-up as needed ATTESTATION: I, Jia Laguna, scribing for and in the presence of, Solomon Su, on this date,1:12:18. Electronic Signature on File Electronically Reviewed/Signed by: Jia Laguna Author Signature Dt/Tm:08/09/2023 12:24 PM Electronically Reviewed/Signed by: Solomon Su MD Cosigner Signature Dt/Tm: 08/09/2023 02:16 PM Division of Sports Medicine Electronically Reviewed/Signed by: Jasper Grey DO Cosigner Signature Dt/Tm: 08/11/2023 04:27 PM Resident Department of Family Medicine [place] Patient Care team information Care Team Personnel Name: MONISHA Baltazar Christina L Position: Physician - Podiatry Member Role: Lifetime Relationship Address: Address: [address] [place] [address] [place] Name: MD Mcgee Madhavi Position: Physician - Family Med Member Role: Primary Care Provider Address: Address: [address] [place] [address] Care Team Related Persons Name: CÉSAR NICOLE Address: [address] [place] [phone]
--- OUTSIDE RECORDS SUMMARY | 2023-10-17 12:18 | External Medical Summary | Continuity of Care Document ---
Author Name Unknown Organization [facility] [address] Address [address] [place], [place] [id number] Care Team Providers Care Spot Checker Name Role Phone McgeeOfe Primary Care Physician [phone] [id number] Date(s): 09/12/23 - 09/12/23 [facility] [address] [facility] [address], [facility] [address] [place], [place] [phone] Encounter Diagnosis Difficulty in walking, not elsewhere classified(Final) - Unspecified diastolic (congestive) heart failure(Final) - Chronic kidney disease, stage 4 (severe)(Final) - Chronic right heart failure(Final) - Type 2 diabetes mellitus with diabetic neuropathy, unspecified(Final) - Bronchiectasis, uncomplicated(Final) - Displaced supracondylar fracture without intracondylar extension of lower end of right femur, subsequent encounter for closed fracture with nonunion(Final) - Hypothyroidism, unspecified(Final) - Type 2 diabetes mellitus without complications(Final) - Morbid (severe) obesity due to excess calories(Final) - Morbid (severe) obesity with alveolar hypoventilation(Final) - Discharge Disposition: Home or Self Care Attending Physician: MD Bradford Christopher Referring Physician: MD Bradford Christopher Allergies, Adverse Reactions, Alerts Substance Reaction Severity Status doxycycline unknown Mild Active amoxicillin Rash Mild Active penicillin Hives Mild Active Duratuss DM unknown Mild Active Neurontin Violent behavior Moderate Active Glucophage Nausea Mild Active Elavil Violent behavior Moderate Active Lyrica "jerks", loss of balance causing fall Active Immunizations Given and Recorded Vaccine Date Status Refusal Reason influenza virus vaccine, inactivated 08/12/23 Give n influenza virus vaccine, inactivated 11/19/21 Give n [...] q6h, Disp# 6.7 g, Refills: 5, Pharmacy: [id number] Start Date: 07/20/23 Status: Ordered aspirin 81 mg oral delayed release tablet Start: 08/12/23 13:12:00 EDT, 1 tab, PO, Daily, Disp# 90 tab, 81 Unknown, Oral, 1 Refill(s), Pharmacy: [id number] Start Date: 08/12/23 Status: Ordered atorvastatin 40 mg oral tablet Start: 08/12/23 13:12:00 EDT, 1 tab, PO, Daily, Disp# 30 tab, Refills: 3, Pharmacy: [id number] Start Date: 08/12/23 Stop Date: 12/10/23 Status: Ordered azithromycin 250 mg oral tablet Start: 08/12/23 13:12:00 EDT, See Instructions, Disp# 30 tab, Refills: 1, 1 tab PO Tuesday, Tuesday and Tuesday, Pharmacy: [id number] Start Date: 08/12/23 Status: Ordered buPROPion 100 mg/12 hours (SR) oral tablet, extended release Start: 07/29/23 12:06:00 EDT, See Instructions, Disp# 90 tab, Refills: 1, take 1 tablet by mouth inthe morning and 2 tablets in the evening, Pharmacy: [id number] Start Date: 07/29/23 Status: Ordered Combivent Respimat 20 mcg-100 mcg/inh inhalation aerosol Start: 08/12/23 13:11:00 EDT, 1 puff, inhaled, q4h, Disp# 1 each, Refills: 2, Pharmacy: [facility] #[facility] Start Date: 08/12/23 Status: Ordered docusate sodium 100 mg oral capsule Start: 08/12/23 13:12:00 EDT, 1 cap, PO, bid, Disp# 60 cap, 100 Unknown, Oral, 1 Refill(s), Pharmacy: [facility] #[facility] Start Date: 08/12/23 Status: Ordered Duragesic-12 transdermal film, extended release Start: 09/08/23 16:57:00 EDT, 1 patch, topical, q72h, Disp# 10 patch, Refills: 0, apply to skin as directed on package labeling, Note to Pharmacy: Can use generic formulation, Pharmacy: [id number] Start Date: 09/08/23 Status: Ordered fentaNYL 12 mcg/hr transdermal film, extended release Start: 09/06/23 11:30:00 EDT, 1 patch, topical, q72h, Disp# 10 patch, Refills: 0, apply to skin. Change every 72 hours to new site as directed on package labeling, Pharmacy: [id number] Start Date: 09/06/23 Stop Date: 10/06/23 Status: Ordered folic acid 1 mg oral tablet Start: 07/29/23 12:06:00 EDT, See Instructions, Disp# 30 tab, Refills: 1, TAKE 1 TABLET BY MOUTH ONCE DAILY, [place] [facility] [id number] Start Date: 07/29/23 Status: Ordered furosemide Start: 05/26/21 9:59:00 EDT, 10 mg =, PO, Daily Start Date: 05/26/21 Status: Ordered HumaLOG Vial 100 units/mL injectable solution Start: 01/15/20 13:18:00 EST, unit =, subQ, Daily, Per pump Start Date: 01/15/20 Status: Ordered isosorbide mononitrate 60 mg oral tablet, extended release Start: 08/15/23 12:51:00 EDT, See Instructions, Disp# 30 tab, Refills: 3, TAKE ONE TABLET BY MOUTH EVERY MORNING, Pharmacy: [id number] Start Date: 08/15/23 Status: Ordered Jardiance 25 mg oral tablet See Instructions, Disp# 30 tab, Refills: 5, TAKE ONE TABLET BY MOUTH EVERY MORNING , [place] [facility] [place] [id number] Start Date: 11/02/21 Status: Ordered levothyroxine 200 mcg (0.2 mg) oral tablet Start: 09/07/23 21:42:00 EDT, 1 tab, PO, Daily, Disp# 30 tab, Refills: 6, Pharmacy: [id number] Start Date: 09/07/23 Stop Date: 04/04/24 Status: Ordered levothyroxine 25 mcg (0.025 mg) oral tablet Start: 09/07/23 21:41:00 EDT, 1 tab, PO, Daily, Disp# 30 tab, Refills: 6, Note to Pharmacy: should be on 225 mcg, Pharmacy: [id number] Start Date: 09/07/23 Stop Date: 04/04/24 Status: Ordered loratadine 10 mg oral tablet Start: 05/20/21 10:40:00 EDT, 10 Unknown, Oral, 1 Refill(s) Start Date: 05/20/21 Status: Ordered metOLazone 2.5 mg oral tablet Start: 03/03/21 10:07:00 EDT Start Date: 03/03/21 Status: Ordered Metoprolol Tartrate 25 mg oral tablet Start: 07/29/23 12:06:00 EDT, See Instructions, Disp# 60 tab, Refills: 1, TAKE 1 TABLET BY MOUTH TWICE DAILY, Pharmacy: [id number] Start Date: 07/29/23 Status: Ordered montelukast 10 mg oral tablet Start: 06/02/23 13:35:00 EDT, See Instructions, Disp# 30 tab, Refills: 11, TAKE 1 TABLET BY MOUTH EVERY EVENING, Pharmacy: [id number] Start Date: 06/02/23 Status: Ordered nitroglycerin 0.4 mg sublingual tablet Start: 05/07/21 10:58:00 EDT, 1 tab, SL, q5min, Disp# 25 tab, PRN: as needed for chest pain Start Date: 05/07/21 Status: Ordered pantoprazole 40 mg oral delayed release tablet Start: 07/29/23 12:06:00 EDT, See Instructions, Disp# 30 tab, Refills: 1, TAKE 1 TABLET BY MOUTH ONCE DAILY, Pharmacy: [id number] Start Date: 07/29/23 Status: Ordered Polysporin 500 units-10,000 units/g topical ointment Start: 09/06/23 11:49:00 EDT, 1 appl, topical, bid, Disp# 15 g, Refills: 1, Pharmacy: [id number] Start Date: 09/06/23 Stop Date: 10/04/23 Status: Ordered Potassium Chloride (Bpe-Dybi-Jff 10) 10 mEq oral tablet, extended release Start: 07/29/23 12:06:00 EDT, See Instructions, Disp# 60 tab, Refills: 1, TAKE 1 TABLET BY MOUTH TWICE DAILY, Pharmacy: [id number] Start Date: 07/29/23 Status: Ordered Salonpas Maximum Strength 4% topical film Start: 09/10/20 10:40:00 EDT, See Instructions, Disp# 30 film, Refills: 3, do not leave patch on for more than 8 hours at a time, Pharmacy: [id number] Start Date: 09/10/20 Status: Ordered sertraline 50 mg oral tablet Start: 08/17/23 13:19:00 EDT, 1 tab, PO, Daily, Disp# 30 tab, Refills: 6, Pharmacy: [id number] Start Date: 08/17/23 Stop Date: 03/14/24 Status: Ordered spironolactone 25 mg oral tablet Start: 08/15/23 12:51:00 EDT, 1 tab, PO, Daily, Disp# 30 tab, Refills: 3, Pharmacy: [id number] Start Date: 08/15/23 Stop Date: 12/13/23 Status: Ordered [place] Start: 08/12/23 12:52:00 EDT Start Date: 08/12/23 Status: Ordered topiramate 100 mg oral tablet Start: 07/29/23 12:06:00 EDT, See Instructions, Disp# 90 tab, Refills: 1, TAKE ONE TABLET BY MOUTH EVERY MORNING AND TWO TABLETS AT BEDTIME., Pharmacy: [id number] Start Date: 07/29/23 Status: Ordered torsemide 20 mg oral tablet Start: 01/15/20 13:17:00 EST, 2 tab, PO, Daily Start Date: 01/15/20 Status: Ordered Voltaren 1% topical gel Start: 06/02/23 13:30:00 EDT, 2 g =, topical, qid, Disp# 100 g, Refills: 2, not to exceed 16 grams/day/single joint of lower extremities, Pharmacy: [id number] Start Date: 06/02/23 Stop Date: 08/31/23 Status: Ordered Problem List Condition Confirmation Course Effective Dates [...] Confirmed Active Obesity hypoventilation syndrome Confirmed Active Distal radius fracture, left Confirmed Active Glaucoma Confirmed Active Status post tracheostomy 3 Confirmed Active Hoarding behavior Confirmed Active Hyperlipidemia Confirmed Active Hypertension Confirmed Active Hypothyroid Confirmed Active Nocturnal hypoxia 4 Confirmed Active Left lumbar radiculopathy Confirmed Active Ovarian cancer Confirmed Active Migraine Confirmed Active Morbid obesity Confirmed Active Diabetic neuropathy Confirmed Active Left knee DJD Confirmed Active Pain of right great toe Confirmed Active Severe persistent asthma 5 Confirmed Active Ambulatory dysfunction Confirmed Active 1sees endocrine - [facility] 2Dr. Donell 3Dr. Fidelia Pappas 4On 5L oxygen at night. 5Steve Malin - MNP pulmonary Procedures Procedure Date Related Diagnosis Body Site [...] 02/29/08 Comp leted Appendicectomy Completed Cholecystectomy Completed [facility] - Total abdominal hy sterectomy and [...] and an infectious/inflammatory process cannot be excluded. [id number] 25stg 4 ovarian cancer Results Orders for Microbiology Reports Name Date Urine Culture (CULTURE, URINE) 09/12/23 Microbiology Reports TEST:Urine.Cx STATUS:Auth (Verified) BODY SITE: SOURCE:Urine COLLECTED DATE/TIME:09/12/23 12:54 PM Status FINAL 09/14/2023 ORGANISM:Escherichia coli Social History Social History Type Response Tobacco 1 Smoking Status Never smoked cigaret charito Sex Female 1none Patient Care team information Care Team Personnel Name: MONISHA Baltazar, Kaylynn Snow Position: Physician - Podiatry Member Role: Lifetime Relationship Address: Address: [address] [place] [address] Name: MD Mcgee Madhavi Position: Physician - Family Med Member Role: Primary Care Provider Address: Address: [facility] [place] [address] Care Team Related Persons Name: CÉSAR NICOLE Address: [address] [place] [phone]
--- OUTSIDE RECORDS SUMMARY | 2023-10-17 12:18 | External Medical Summary | Summary of Care ---
Author Name Unknown Organization [facility] Address [address] [facility] [place] [address] Phone [phone] Care Team Providers Care Flight Operations Specialist Name Role Phone Ofe Mcgee MD Primary Care Provider [phone] Reason for Visit * Reason Onset Date Comments Med Request 09/26/2023 Encounter Details Date Type Department Care Team (Late st Contact Info) Description 09/26/2023 Telephone Cardiology, [facility] [address] [place] [address] [place], [address] [place] [address] Med Request Allergies Active Allergy Reactions Criticality Noted Date Comments Amoxicillin 04/27/2002 Dextromethorphan-Guaifenesin 010 Doxycycline 04/27/2002 Amitriptyline Hcl 08/10/2010 Gabapentin 09/01/2006 Other reaction(s): Physical aggression (finding) Metformin Hydrochloride 08/06/2010 Gabapentin 08/10/2010 Getting violent Penicillins Hives 04/26/2008 documented as of this encounter (statuses as of 09/26/2023) Medications Medication Sig Dispensed Refills Start Date End Date Status TYLENOL EXTRA STRENGTH 500 MG PO TABS Take 2 Tablets by mouth in the morning and 2 Tablets before bedtime. 0 Active MULTIVITAMINS PO TABSIndications:Mo rbid obesity, BMI not known (HCC) Take one by mouth once daily. 35 11 07/11/2008 Active ASPIRIN EC 81 MG PO TBECIndications:Ch est pain 1 TABLET DAILY 30 Tab 3 09/04/2010 Active NEBULIZER MISCIndications:CO PD, severity to be determined (HCC),Attention to tracheostomy (HCC) tubing for use of nebulizer for a patient with tracheostomy 1 Units 0 09/06/2012 Active NEBULIZER DEVIIndications:CO PD, severity to be determined (HCC),Attention to tracheostomy (HCC) for use with albuterol for wheezing. use every 4 hours as needed for wheezing. include tracheostomy masks 1 Device 0 09/07/2012 Active SPACER/AERO-HOLDIN G CHAMBERS DEVIIndications:CO PD, severity to be determined (HCC) use with inhaler 1 Device 0 06/07/2014 Active OXYGENIndications: COPD, severity to be determined (HCC),Nocturnal hypoxemia 5 L/min(Oxygen) at bedtime . Via Trach. 1 Each 0 08/27/2014 Active montelukast (SINGULAIR) 10 MG Tablet Take by mouth 10 mg at bedtime . 0 05/01/2015 Active albuterol-ipratrop ium (DUONEB) 2.5-0.5 MG/3ML nebulizer solution 3 ML 4 times daily for increased coughing, wheezing, or shortness of breath 180 Vial 3 05/28/2015 Active ONETOUCH ULTRASOFT LANCETS MISC Use up to 6 times a day as directed, Dx: E11.9 1 Box Dosing Unit 11 08/13/2019 Active metoprolol tartrate (LOPRESSOR) 25 MG Tablet take 1/2 tablet by mouth twice a day 30 Tab 5 10/04/2019 Active buPROPion extended release, SR, (WELLBUTRIN SR) 100 MG TB12 take 3 tablet by mouth daily 90 Tab 3 10/10/2019 Active folic acid 1 MG Tablet TAKE 1 TABLET BY MOUTH ONCE DAILY 30 Tab 0 02/19/2020 Active topiramate (TOPAMAX) 100 MG TabletIndications: Migraine with aura and without status migrainosus, not intractable TAKE 1 TABLET BY MOUTH EVERY MORNING AND 2 TABLETS AT BEDTIME 90 Tab 5 02/28/2020 Active COMBIVENT RESPIMAT 20-100 MCG/ACT InhalerIndications :COPD, severity to be determined (HCC) INHALE ONE PUFF BY MOUTH FOUR TIMES DAILY 12 g 0 05/10/2020 Active pantoprazole (PROTONIX) 40 MG TBECIndications:Ga stroesophageal reflux disease, esophagitis presence not specified TAKE 1 TABLET BY MOUTH ONCE DAILY 90 Tab 0 05/27/2020 Active levothyroxine (LEVOXYL) 200 MCG Tablet Take by mouth 200 mcg daily first thing in the morning . 0 06/20/2020 Active atorvaSTATin (LIPITOR) 40 MG Tablet Take by mouth 40 mg daily . 0 06/25/2020 Active Lisinopril 2.5 MG Oral Tablet (Prinivil) Take 1 Tab by mouth daily. 0 05/08/2021 Active Commode BedsideIndications :Chronic right-sided heart failure (HCC),Chronic diastolic HF (heart failure) ([facility]),HTN, goal below 140/90,Ambulatory dysfunction 1 bedside commode 1 Each 0 05/08/2021 Active Contour Next Test In Vitro Strip (Glucose Blood)Indications: Type 2 diabetes mellitus with hemoglobin A1c goal of less than 8.0% ([facility]) use to test 3 times daily 300 Strip 3 07/13/2021 Active Nitroglycerin 0.4 MG Sublingual Tablet Sublingual (Nitrostat)Indicat ions:Coronary artery disease involving [place] coronary artery of [place] heart without angina pectoris DISSOLVE 1 TABLET under tongue every 5 minutes if needed for chest pain; up to 3 doses in 15 minutes 100 Tablet 3 02/18/2022 Active Insulin Aspart 100 UNIT/ML Subcutaneous Solution Sliding scale with meals: Glucose 151-200 (3 units insulin), glucose 201-250 (6 units insulin), glucose 251-300 (9 units insulin), Glucose greater than 300 (12 units insulin). Do not exceed 36 units daily. 10 mL 6 07/06/2022 Active Insulin Aspart 100 UNIT/ML Subcutaneous Solution Insulin carb coverage: 1 unit insulin for every 4 carbs 10 mL 6 07/06/2022 Active Albuterol Sulfate (2.5 MG/3ML) 0.083% Inhalation Nebulization Solution (Proventil) Inhale via nebulizer 1 Vial every 4 hours as needed for Wheezing or Shortness of Breath. 360 mL 11 07/06/2022 Active Torsemide 20 MG Oral Tablet (Demadex)Indicatio ns:Chronic right-sided heart failure (HCC) Take by mouth 1 Tablet in the morning. 180 Tablet 3 07/06/2022 Active Torsemide 10 MG Oral Tablet (Demadex) Take by mouth 1 Tablet every afternoon . 60 Tablet 5 07/06/2022 Active Vitamin B-12 1000 MCG Oral Tablet Take by mouth 1 Tablet in the morning. 30 Tablet 0 07/06/2022 Active Insulin Glargine 100 UNIT/ML Subcutaneous Solution (Lantus) Inject under the skin 54 Units in the morning AND 54 Units before bedtime. 1 Each 12 07/06/2022 Active linaGLIPtin 5 MG Oral Tablet (Tradjenta) Take by mouth 1 Tablet in the morning. 30 Tablet 0 07/06/2022 Active Additional Information Patient not taking.Reported on 05/10/2023 Menthol-Zinc Oxide 0.44-20.6 % External Ointment (Calmoseptine) Apply topically to affected area as needed for Other (After bowel movements and cleaning). 71 g 2 07/06/2022 Active Polyethylene Glycol 3350 17 GM Oral Packet (Miralax) Take by mouth 1 Packet daily as needed for Constipation. 14 Each 0 07/06/2022 Active Sennosides-Docusat e Sodium 8.6-50 MG Oral Tablet (Senokot-S) Take by mouth 2 Tablets in the morning. 60 Tablet 0 07/06/2022 Active Empagliflozin 10 MG Oral Tablet (Jardiance) Take 1 Tablet by mouth in the morning. 0 Active Isosorbide Mononitrate ER 60 MG Oral Tablet Extended Release 24 Hour (Imdur)Indications :Coronary artery disease involving [place] coronary artery of [place] heart without angina pectoris TAKE 1 TABLET BY MOUTH ONCE DAILY 30 Tablet 0 06/23/2023 Active Spironolactone 25 MG Oral Tablet (Aldactone)Indicat ions:Chronic right-sided heart failure (HCC) TAKE 1 TABLET BY MOUTH ONCE DAILY 31 Tablet 0 06/23/2023 Active Sertraline HCl 50 MG Oral Tablet (Zoloft)Indication s:Coronary artery disease involving [place] coronary artery of [place] heart without angina pectoris,Chronic right-sided heart failure (HCC) TAKE 1 TABLET BY MOUTH EVERY MORNING 30 Tablet 0 06/23/2023 Active documented as of this encounter (statuses as of 09/26/2023) Active Problems Problem Noted Date Diagnosed Date Nocturnal hypoxia 05/04/2022 Overview: Wears 5L at home. 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 Tracheostomy status 09/25/2015 Hypoventilation associated with obesity syndrome 09/25/2015 Coronary artery disease 03/28/2014 Dyslipidemia, goal LDL below 70 12/08/2011 ATTEN TO TRACHEOSTOMY (7.0 S hiley XLT cuffed proximally extended tracheostomy tube) 03/01/2008 Acquired hypothyroidism 02/17/2008 COPD, severity to be determined 02/13/2008 Difficult intubation 02/12/2008 documented as of this encounter (statuses as of 09/26/2023) Resolved Problems Problem Noted Date Diagnosed Date Resolved Date Laceration of toe 03/28/2022 05/04/2022 Overview: Rt second toe Cellulitis of lower extremity 03/28/2022 03/28/2022 Overview: Bilateral medial thigh region cellulitis was original reason for admission at OSH, she had a course of daptomycin there. Anemia 03/28/2022 05/04/2022 Body mass index (BMI) of 60. 0 to 69.9 in adult 12/29/2020 05/04/2022 Overview: Per Obesity protocol - Per Obesity protocol - Body mass index (BMI) of 50. 0 to 59.9 in adult 07/30/2019 01/01/2021 Overview: Per Obesity protocol - Body mass index (BMI) of 60. 0 to 69.9 in adult 04/11/2018 08/03/2019 Overview: Per Obesity protocol #1 Body mass index (BMI) greate r than or equal to 70 in adult 08/22/2017 04/13/2018 Overview: Per Obesity protocol #1 Bronchiectasis 09/25/2015 05/04/2022 Tracheobronchitis 09/25/2015 05/04/2022 Type 2 diabetes mellitus wit h hemoglobin A1c goal of less than 8.5% 03/28/2014 06/09/2018 Kidney disease, chronic, sta ge III (GFR 30-59 ml/min) 01/14/2014 01/01/2021 Overview: Per CKD protocol #1 No diabetic retinopathy in both eyes 05/10/2013 05/04/2022 Chest pain 03/21/2013 08/23/2013 Impaired physical mobility 12/27/2012 0 03/28/2018 Obesity, morbid (more than 1 00 lbs over ideal weight or BMI > 40) 11/27/2012 08/23/2013 Hemoptysis 10/04/2012 05/04/2022 HTN, GOAL BELOW 140/80 07/10/201202/25 Overview: Per HTN Protocol #27. Patient is full code 03/20/2012 022 High triglycerides 12/08/2011 2 Migraine with aura 04/12/2011 2 Adult body mass index 60.0-69.9 10/06/2010 07/05/2017 Obesity, morbid (more than 1 00 lbs over ideal weight or BMI > 40) 02/17/2010 10/06/2010 Overview: Per Obesity Taxonomy ICD-10 update of inactive term HTN, GOAL BELOW 130/80 12/17/200907/13 Overview: Per HTN Taxonomy. Type 2 diabetes mellitus wit h hemoglobin A1c goal of less than 7.0% 09/04/2009 09/19/2010 DM type 2, not at goal 05/09/200809/04 Overview: Modified per Diabetes protocol #14. Hypersomnia with sleep apnea 05/09/2008 05/04/2022 ATTEN TO TRACHEOSTOMY #5 Bob domenica metal trach tube 04/26/2008 05/04/2022 Overview: Maintaining b/o obstructive sleep apnea Vomiting 03/05/2008 12/27/2012 Overview: ICD-10 update of inactive term Constipation 02/16/2008 05/04/2022 Anxiety state 02/14/2008 05/04/2022 Pneumonia due to organism 02/13/2008 Overview: ICD-10 update of inactive term Respiratory failure, acute 02/13/2008 0 06/09/2018 Morbid obesity, BMI not known 02/13/2008 02/17/2010 Overview: Per Obesity Taxonomy HTN, goal below 140/90 02/13/200812/17 Overview: Per HTN Taxonomy. Cardiac arrest 02/13/2008 09/28/2017 Respiratory arrest 02/13/2008 3 Hyposmolality 02/13/2008 12/27/2012 Hypotension 02/12/2008 03/26/2014 Diabetic retinopathy 018 Overview: right eye PRP by Dr. Waite in 01/2017, Left Eye 02/17/17. Severe non-proliferative OU. documented as of this encounter (statuses as of 09/26/2023) Immunizations Name Administration Dates Next Due COVID-19, LNP-s, No Preserve , Tello-sucrose, Ages 12+ (Pfizer) 06/08/2022 Pneumococcal Conjugate Vacc, 13 Valent (Prevnar) 04/29/2015 Pneumococcal Polysaccharide PPV23 (Pneumovax) 09/27/2016 SEASONAL INFLUENZA, PF, 6 M & Above, IM , (FLULAVAL or FLUZONE) 08/22/2019,09/12/2018,08/23/2017 Seasonal Influenza, Quadriva lent, No Preserve, IM 09/27/2016 Seasonal Influenza, Split, I IV3, With Preserve, Inj 08/26/2015,08/15/2014,08/23/2013,08/04,08/27/2011,08/28/2010 TDAP (age 11 and older)(Adacel) 07/29/2011 documented as of this encounter Social History Tobacco Use Types Packs/Day Years Used Date Smoking Tobacco: Never Smokeless Tobacco: Never Alcohol Use Standard Drinks/Week Comments No 0 (1 standard drink = 0.6 oz pur e alcohol) PHQ-2 Answer Date Recorded PHQ-2 Score 0 07/13/2019 Hunger Vital Sign Answer Date Recorded Worried About Running Out of Food in the Last Ye ar Never true 07/13/2019 Ran Out of Food in the Last Year Never true 07/13/2019 Sex and Gender Information Value Date Recorded Sex Assigned at Female 04/13/2019 12:54 PM EDT Gender Identity Female 04/13/2019 12:54 PM EDT Sexual Orientation Straight 04/13/2019 12 :54 PM EDT Job Start Date Occupation Industry Not on file Not on file Not on file documented as of this encounter Miscellaneous Notes * Telephone Encounter - Faiza Rutherford CPhT - 09/26/2023 10:10 AM EST Pt calling for refills on her Cardiology meds, transfer to specialty line. 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[facility] ([facility]) 09/26/2023,10:12 AM documented in this encounter Plan of Treatment Health Maintenance Due Date Last Done Comments DXA Scan 1956 Alpha-1 Antitrypsin 1974 Hepatitis C Screening 1974 O2 ASSESSMENT COMPLETED IN PAST YEAR FOR COPD 1974 Colonoscopy 2001 Fecal Occult Blood Test 2001 Sigmoidoscopy 2001 Zoster Vaccines (1 of 2) 2006 Hepatitis B (1 of 3 - Risk 3-dose series) 2016 Albumin/Creatinine Ratio 12/16/2018 018, 10/06/2016, 06/10/2014, Additional history exists Diabetic Foot Exam 03/28/2019 03/28/2018, 1 11/27/2015, 06/19/2015, Additional history exists Depression Screening 07/13/2020 07/13/2019 Diabetic Eye Exam 12/25/2020 12/25/2019, , 06/19/2019, Additional history exists DTaP,Tdap,and Td Vaccines (2 - Td or Tdap) 07/29/2021 07/29/2011, 07/29/2011 Pneumococcal Vaccine: 65+ Years (3 - PPSV23 or PCV20) 09/27/2021 09/27/2016, 04/29/2015 Mammogram 10/14/2021 10/14/2020, 03/2020, 09/24/2019, Additional history exists Cologuard 07/04/2022 07/04/2019, 05/09/2019 Colorectal Cancer Screening 07/04/2022 HbA1c 09/28/2022 03/28/2022, 06/22, 03/27/2019, Additional history exists GFR 01/05/2023 07/05/2022, 0 06/2022, 06/21/2022, Additional history exists TSH 04/25/2023 04/25/2022, 02/2019, 07/13/2019, Additional history exists CKD PHOS USE SMARTSET 64892 06/12/202305/22, 04/04/2022, 04/03/2022, Additional history exists CKD HGB USE SMARTSET 74095 07/05/202307/05, 06/12/2022, 06/12/2022, Additional history exists COVID-19 Vaccine ( season) 2023 06/08/2022, 06/08/2022, 03/05/2021, Additional history exists Influenza Vaccine (FLU shot) (#1) 2023 11/19/2021, 08/22/2019, 09/12/2018, Additional history exists *COPD SEVERITY VERIFIED BY PFT Addressed 12/29/2017 (Declined) Overridden with th e intention of not completing the topic GARDASIL-HPV IMMUNIZATION SERIES Aged Out No longer eligible based on patient's age to complete this topic MENINGOCOCCAL (MENACTRA/MENVEO) Aged Out No longer eligible based on patient's age to complete this topic documented as of this encounter Medical Devices Not on filedocumented as of this encounter Advance Directives Latest Code Status on File Code Status Date Activated Date Inactivated Comments Full Code 03/27/2022 10:36 AM 07/06/2022 4:30 PM This order reflects the patients wishes and were consensually agreed upon. Question Answer Comments Discussion of Advance Directives occurred with: Patient/Family Code Status History Code Status Date Activated Date Inactivated Comments Full Code 02/13/2008 1:48 AM 03/06/2008 9:34 PM Care Teams Flight Operations Specialist Relationship Specialty Start Date End Date Ofe Mcgee MD [address] [address] PCP - General Family Medicine 06/02/20 documented as of this encounter
--- OUTSIDE RECORDS SUMMARY | 2023-10-17 12:18 | External Medical Summary | Summary of Care ---
Author Name Unknown Organization [facility] Address [address] [facility] [place] [address] Phone [phone] Care Team Providers Care Tapper Operator Name Role Phone Ofe Mcgee MD Primary Care Provider [phone] Reason for Visit * Reason Onset Date Comments Follow Up 09/26/2023 Encounter Details Date Type Department Care Team (Late st Contact Info) Description 09/26/2023 Refill Cardiology, [facility] [address] [place] [id number] Kristen Martin, [address] [place] [id number] Chronic right-sided heart failure (HCC) Allergies Active Allergy Reactions Criticality Noted Date [...] Tablets before bedtime. 0 Active MULTIVITAMINS PO TABSIndications:M orbid obesity, BMI not known (HCC) Take one by mouth once daily. 35 11 07/11/2008 Active ASPIRIN EC 81 MG PO TBECIndications:C hest pain 1 TABLET DAILY 30 Tab 3 09/04/2010 Active NEBULIZER MISCIndications:C OPD, severity to be determined (HCC),Attention to tracheostomy (HCC) tubing for use of nebulizer for a patient with tracheostomy 1 Units 0 09/06/2012 Active NEBULIZER DEVIIndications:C OPD, severity to be determined (HCC),Attention to tracheostomy (HCC) for use with albuterol for wheezing. use every 4 hours as needed for wheezing. include tracheostomy masks 1 Device 0 09/07/2012 Active SPACER/AERO-HOLDI NG CHAMBERS DEVIIndications:C OPD, severity to be determined (HCC) use with inhaler 1 Device 0 06/07/2014 Active OXYGENIndications :COPD, severity to be determined (HCC),Nocturnal hypoxemia 5 L/min(Oxygen) at bedtime . Via Trach. 1 Each 0 08/27/2014 Active montelukast (SINGULAIR) 10 MG Tablet Take by mouth 10 mg at bedtime . 0 05/01/2015 Active albuterol-ipratro pium (DUONEB) 2.5-0.5 MG/3ML nebulizer solution 3 ML [...] 0 02/19/2020 Active topiramate (TOPAMAX) 100 MG TabletIndications :Migraine with aura and without status migrainosus, not intractable TAKE 1 TABLET BY MOUTH EVERY MORNING AND 2 TABLETS AT BEDTIME 90 Tab 5 02/28/2020 Active COMBIVENT RESPIMAT 20-100 MCG/ACT InhalerIndication s:COPD, severity to be determined (HCC) INHALE ONE PUFF BY MOUTH FOUR TIMES DAILY 12 g 0 05/10/2020 Active pantoprazole (PROTONIX) 40 MG TBECIndications:G astroesophageal reflux disease, esophagitis presence not specified TAKE [...] by mouth daily. 0 05/08/2021 Active Commode BedsideIndication s:Chronic right-sided heart failure (HCC),Chronic diastolic HF (heart failure) ([facility]),HTN, goal below 140/90,Ambulatory dysfunction 1 bedside commode 1 Each 0 05/08/2021 Active Contour Next Test In Vitro Strip (Glucose Blood)Indications :Type 2 diabetes mellitus with hemoglobin A1c goal of less than 8.0% ([facility]) use to test 3 times daily 300 Strip 3 07/13/2021 Active Nitroglycerin 0.4 MG Sublingual Tablet Sublingual (Nitrostat)Indica tions:Coronary artery disease involving pamunkey coronary artery of pamunkey heart without angina pectoris DISSOLVE 1 TABLET [...] not exceed 36 units daily. 10 mL 07/06/2022 Active Insulin Aspart 100 UNIT/ML Subcutaneous Solution Insulin carb coverage: 1 unit insulin for every 4 carbs 10 mL 6 07/06/2022 Active Albuterol Sulfate (2.5 MG/3ML) 0.083% Inhalation Nebulization Solution (Proventil) Inhale via nebulizer 1 Vial every 4 hours as needed for Wheezing or Shortness of Breath. 360 mL 11 07/06/2022 Active Torsemide 10 MG Oral Tablet [...] for Constipation. 14 Each 0 07/06/2022 Active Sennosides-Docusa te Sodium 8.6-50 MG Oral Tablet (Senokot-S) Take by mouth 2 Tablets in the morning. 60 Tablet 0 07/06/2022 Active Empagliflozin 10 MG Oral Tablet (Jardiance) Take 1 Tablet by mouth in the morning. 0 Active Sertraline HCl 50 MG Oral Tablet (Zoloft)Indicatio ns:Coronary artery disease involving pamunkey coronary artery of pamunkey heart without angina pectoris,Chronic right-sided heart failure (HCC) TAKE 1 TABLET BY MOUTH EVERY MORNING 30 Tablet 0 06/23/2023 Active Torsemide 20 MG Oral Tablet (Demadex)Indicati ons:Chronic right-sided heart failure (HCC) Take 1 Tablet by mouth in the morning. 90 Tablet 3 09/26/2023 Active Torsemide 20 MG Oral Tablet (Demadex)Indicati ons:Chronic right-sided heart failure (HCC) Take by mouth 1 Tablet in the morning. 180 Tablet 3 07/06/2022 3 Discontinu ed(Refill) documented as of this encounter (statuses as of 09/26/2023) Active Problems Problem Noted Date Diagnosed Date Nocturnal hypoxia 05/04/2022 Overview: Wears 5L at home. Acute hyponatremia 05/04/2022 Femur fracture 03/28/2022 Overview: Rt distal, fall from chair Acute on chronic respiratory failure with hypoxia and hypercapnia 03/28/2022 Morbid obesity with BMI of 60.0-69.9, adult 05/0 06/2022 Deep tissue injury 03/28/2022 Overview: Left [...] 05/09/2008 05/04/2022 ATTEN TO TRACHEOSTOMY #5 Bob metzger metal trach tube 04/26/2008 05/04/2022 Overview: Maintaining [...] encounter Miscellaneous Notes * Telephone Encounter - Kristen Martin DO - 09/26/2023 6:16 PM ESTSigned Prescriptions: Disp Refills Torsemide 20 MG Oral Tablet (Demadex) 90 Tab*3 Sig: Take 1 Tablet by mouth in the morning.Authorizing Provider: KRISTEN MARTIN * Telephone Encounter - Helene Pickard COT - 09/26/2023 2:56 PM ESTPending Prescriptions: Disp Refills Torsemide 20 MG Oral Tablet (Demadex) 90 Tab*3 Sig: Take 1 Tablet by mouth in the morning. * Telephone Encounter - Alessandra Gallagher, educational manager - 09/26/2023 10:26 AM EST Patient is requesting Dr. Martin to prescribe this medication. Did you pend patient's preferred pharmacy and medication before forwarding?yes Pharmacy: [id number] [address] [facility] Pending Prescriptions: Disp Refills Torsemide 20 MG Oral Tablet (Demadex) 180 Ta*3 Sig: Take 1 Tablet by mouth in the morning. Last Visit: 01/07/2022 (in office), 05/10/2023 (telemedicine) Next Visit: Visit date not found If no future appointments scheduled, and last appointment is greater than a year ago, please schedule patient for a follow-up appointment Last date the medication was ordered: 07/06/22 Is this request for a controlled substance?No Urine Drug Screen: Results for orders placed or performed during the hospital encounter of 03/27/22 TOXICOLOGY, URINE SCREEN W/ CONFIRMATION Result Value Amphetamine Negative Benzodiazepines Negative Cannabinoids Negative Cocaine Metabolite Negative Fentanyl Negative Hydrocodone / Hydromorphone Negative Methadone Metabolite Negative Morphine / Codeine Negative Oxycodone / Oxymorphone Positive (A) Narrative Cutoff Concentrations: Drug Level Amphetamines 500 ng/mL Benzodiazepines 100 ng/mL Cannabinoids 50 ng/mL Cocaine Metabolite 150 ng/mL Fentanyl 1 ng/mL Hydrocodone / Hydromorphone 300 ng/mL Methadone Metabolite 100 ng/mL Morphine / Codeine 300 ng/mL Oxycodone / Oxymorphone 100 ng/mL Screening results are presumptive and can only be used for medical purposes. Positive screening results are reflexed to confirmatory testing. *Note: Due to a large number of results and/or encounters for the requested time period, some results have not been displayed. A complete set of results can be found in Results Review. Patient Phone Numbers Labs: Lab Results Component Value Date/Time CREAT 1.4 (H) 07/05/2022 07:20 AM CREAT 1.76 (H) 05/27/2021 12:00 AM CREAT 1.5 (H) 12/19/2020 11:42 AM POTASSIUM 4.1 07/05/2022 07:20 AM POTASSIUM 4.8 05/27/2021 12:00 AM POTASSIUM 3.9 12/19/2020 11:42 AM TSH 14.80 (H) 04/25/2022 07:29 AM TSH 1.04 09/24/2019 11:29 AM LDLCALC 31 11/24/2018 10:27 AM LDLDIRECT 37 11/05/2021 10:44 AM LDLDIRECT NOT APPLICABLE 09/19/2015 12:18 PM LDLDIRECT 49 08/16/2012 12:17 PM ALT 29 06/12/2022 09:33 AM ALT 12 03/27/2019 02:25 PM HGBA1C 7.7 (H) 03/28/2022 05:58 AM HGBA1C 6.9 (H) 07/13/2019 11:50 AM documented in this encounter Plan of [...] 03/27/2019, Additional history exists GFR 01/05/2023 07/05/2022, 06/2022, 06/21/2022, Additional history exists TSH 04/25/2023 04/25/2022, 02/2019, 07/13/2019, Additional history exists CKD PHOS USE SMARTSET 47199 06/12/202305/22, 04/04/2022, 04/03/2022, Additional history exists CKD HGB USE SMARTSET 21706 07/05/202307/05, 06/12/2022, 06/12/2022, Additional history exists COVID-19 [...] Not on filedocumented as of this encounter Visit Diagnoses Diagnosis Chronic right-sided heart failure (HCC) Congestive heart failure, unspecified documented in this encounter Advance Directives Latest Code Status [...] 1:48 AM 03/06/2008 9:34 PM Care Teams Tapper Operator Relationship Specialty Start Date End Date Ofe Mcgee MD [address] [place] [address] PCP - General Family Medicine 06/02/20 documented as of this encounter
--- OUTSIDE RECORDS SUMMARY | 2023-10-17 12:18 | External Medical Summary | Continuity of Care Document ---
Author Name Unknown Organization [address] Address [address] [phone] Care Team Providers Care Production Quality Analyst Name Role Phone Ofe Mcgee Primary Care Physician [phone] [id number] Date(s): 07/15/23 - 07/15/23 [facility] [place] [address] [facility] [address] [facility] Practice Site [address] [facility] [address] [place], [place] [address] [phone] Discharge Disposition: Home or Self Care Attending Physician: MD Mcgee Madhavi Referring Physician: MD Mcgee Madhavi Allergies, Adverse Reactions, Alerts Substance Reaction Severity [...] (Eqv-ProAir HFA) 90 mcg/inh inhalation aerosol Start: 06/02/23 13:28:00 EDT, 2 puff, inhaled, q6h, Disp# 6.7 g, Refills: 1, 8 unknown unit, Pharmacy: [id number] Start Date: 06/02/23 Status: Ordered aspirin 81 mg oral delayed release tablet Start: 05/20/21 10:40:00 EDT, 81 Unknown, Oral, 1 Refill(s) Start Date: 05/20/21 Status: Ordered atorvastatin 40 mg oral tablet Start: 06/02/23 13:33:00 EDT, 1 tab, PO, Daily, Disp# 30 tab, Refills: 3, Pharmacy: [id number] Start Date: 06/02/23 Stop Date: 09/30/23 Status: Ordered azithromycin 250 mg oral tablet Start: 06/02/23 13:29:00 EDT, See Instructions, Disp# 30 tab, Refills: 1, 1 tab PO Tuesday, Tuesday and Tuesday, Pharmacy: [id number] Start Date: 06/02/23 Status: Ordered buPROPion 100 mg/12 hours (SR) oral tablet, extended release Start: 06/02/23 13:30:00 EDT, See Instructions, Disp# 90 tab, Refills: 1, take 1 tablet by mouth inthe morning and 2 tablets in the evening, Pharmacy: [facility] Start Date: 06/02/23 Status: Ordered Combivent Respimat 20 mcg-100 mcg/inh inhalation aerosol Start: 06/02/23 13:28:00 EDT, 1 puff, inhaled, q4h, Disp# 1 each, Refills: 2, Pharmacy: [id number] Start Date: 06/02/23 Status: Ordered docusate sodium 100 mg oral capsule Start: 05/20/21 10:40:00 EDT, 100 Unknown, Oral, 1 Refill(s) Start Date: 05/20/21 Status: Ordered folic acid 1 mg oral tablet Start: 06/02/23 13:31:00 EDT, See Instructions, Disp# 30 tab, Refills: 1, TAKE 1 TABLET BY MOUTH ONCE DAILY, Pharmacy: [id number] Start Date: 06/02/23 Status: Ordered furosemide Start: 05/26/21 9:59:00 EDT, [...] ONE TABLET BY MOUTH EVERY MORNING, Pharmacy: [id number] Start Date: 06/25/23 Status: Ordered Jardiance 25 mg oral tablet See Instructions, Disp# 30 tab, Refills: 5, TAKE ONE TABLET BY MOUTH EVERY MORNING , Pharmacy: [id number] Start Date: 11/02/21 Status: Ordered levothyroxine 200 mcg (0.2 mg) oral tablet Start: 06/02/23 13:34:00 EDT, 1 tab, PO, Daily, Disp# 30 tab, Refills: 1, Pharmacy: [id number] Start Date: 06/02/23 Stop Date: 08/01/23 Status: Ordered levothyroxine 25 mcg (0.025 mg) oral tablet Start: 06/25/23 15:49:00 EDT, 1 tab, PO, Daily, Disp# 30 tab, Refills: 1, Note to Pharmacy: should be on 225 mcg, Pharmacy: [facility] Start Date: 06/25/23 Stop Date: 08/24/23 Status: Ordered loratadine 10 mg oral tablet Start: 05/20/21 10:40:00 EDT, 10 Unknown, Oral, 1 Refill(s) Start Date: 05/20/21 Status: Ordered metOLazone 2.5 mg oral tablet Start: 03/03/21 10:07:00 EDT Start Date: 03/03/21 Status: Ordered Metoprolol Tartrate 25 mg oral tablet Start: 06/02/23 13:35:00 EDT, See Instructions, Disp# 60 tab, Refills: 1, TAKE 1 TABLET BY MOUTH TWICE DAILY, Pharmacy: [facility] Start Date: 06/02/23 Status: Ordered montelukast 10 mg oral tablet Start: 06/02/23 13:35:00 EDT, See Instructions, Disp# 30 tab, Refills: 11, TAKE 1 TABLET BY MOUTH EVERY EVENING, Pharmacy: [facility] Start Date: 06/02/23 Status: Ordered nitroglycerin 0.4 mg sublingual tablet Start: 05/07/21 10:58:00 EDT, 1 tab, SL, q5min, Disp# 25 tab, PRN: as needed for chest pain Start Date: 05/07/21 Status: Ordered oxyCODONE 5 mg oral tablet Start: 07/07/23 10:37:00 EDT, 1 tab, PO, q6h, Disp# 40 tab, Refills: 0, PRN: pain - severe (7-10), Pharmacy: [facility] Start Date: 07/07/23 Status: Ordered pantoprazole 40 mg oral delayed release tablet Start: 06/02/23 13:35:00 EDT, See Instructions, Disp# 30 tab, Refills: 1, TAKE 1 TABLET BY MOUTH ONCE DAILY, Pharmacy: [facility] Start Date: 06/02/23 Status: Ordered Potassium Chloride (Zab-Yuwy-Vch 10) 10 mEq oral tablet, extended release Start: 06/02/23 13:35:00 EDT, See Instructions, Disp# 60 tab, Refills: 1, TAKE 1 TABLET BY MOUTH TWICE DAILY, Pharmacy: [facility] Start Date: 06/02/23 Status: Ordered Salonpas Maximum Strength 4% topical film Start: 09/10/20 10:40:00 EDT, See Instructions, Disp# 30 film, Refills: 3, do not leave patch on for more than 8 hours at a time, Pharmacy: [facility] Start Date: 09/10/20 Status: Ordered spironolactone 25 mg oral tablet Start: 06/25/23 15:50:00 EDT, 1 tab, PO, Daily, Disp# 30 tab, Refills: 1, Pharmacy: [facility] Start Date: 06/25/23 Stop Date: 08/24/23 Status: Ordered topiramate 100 mg oral tablet Start: 06/02/23 13:32:00 EDT, See Instructions, Disp# 90 tab, Refills: 1, TAKE ONE TABLET BY MOUTH EVERY MORNING AND TWO TABLETS AT BEDTIME., Pharmacy: [facility] Start Date: 06/02/23 Status: Ordered torsemide 20 mg oral tablet Start: 01/15/20 13:17:00 EST, 2 tab, PO, Daily Start Date: 01/15/20 Status: Ordered Voltaren 1% topical gel Start: 06/02/23 13:30:00 EDT, 2 g =, topical, qid, Disp# 100 g, Refills: 2, not to exceed 16 grams/day/single joint of lower extremities, Pharmacy: [facility] Start Date: 06/02/23 Stop Date: 08/31/23 Status: Ordered Problem List Condition Confirmation Course Effective Dates Status H ealth Status Informant Anemia Confirmed Active Anxiety Confirmed Active Arthritis Confirmed Active Ingrown toenail of both feet Confirmed Active Bronchiectasis Confirmed Active Chronic back pain Confirmed Active CKD (chronic kidney disease), stage IV Confirmed Active Chronic right heart failure Confirmed Active Coronary artery disease Confirmed Active Depression Confirmed Active Insulin dependent diabetes mellitus 1 Confirmed Active Diastolic heart failure 2 Confirmed Active Obesity hypoventilation syndrome Confirmed Active Right foot pain Confirmed Active Distal radius fracture, left Confirmed Active Femur fracture, right Confirmed Active Glaucoma Confirmed Active Status post [...] [place] 4On 5L oxygen at night. 5Steve Kimo - [facility] pulmonary Procedures Procedure Date Related Diagnosis Body [...] and an infectious/inflammatory process cannot be excluded. [id number] 25stg 4 ovarian cancer Social History Social History Type Response Tobacco 1 Smoking Status Never smoked cigaret charito Sex Female 1none Patient Care team information Care Team Personnel Name: Pepe-Solomon, Kaylynn BEARDEN Position: Physician - Podiatry Member Role: Lifetime Relationship Address: Address: [address] [facility] [address] [place] [address] [place] Name: MD Mcgee Madhavi Position: Physician - Family Med Member Role: Primary Care Provider Address: Address: [address] [facility] [address] [place] [address] Care Team Related Persons Name: CÉSAR NICOLE Address: [address] [place] [id number]
--- OUTSIDE RECORDS SUMMARY | 2023-10-17 12:18 | External Medical Summary | Continuity of Care Document ---
Author Name Unknown Organization [facility] [id number] [place] [phone] Care Team Providers Care Machine Marker Name Role Phone Ofe Mcgee Primary Care Physician [phone] Encounter [facility] [id number] Date(s): 08/12/23 - 08/12/23 [facility] [address] [facility] [address] [address] [phone] Encounter Diagnosis Ambulatory dysfunction(Discharge Diagnosis) - 08/12/23 Femur fracture, right(Discharge Diagnosis) - 08/12/23 Discharge Disposition: Home or Self Care Attending Physician: DO Palacios Franklin J Allergies, Adverse Reactions, Alerts Substance Reaction Severity Status doxycycline unknown Mild Active amoxicillin Rash Mild Active penicillin Hives Mild Active Duratuss DM unknown Mild Active Neurontin Violent behavior Moderate Active Glucophage Nausea Mild Active Elavil Violent behavior Moderate Active Lyrica "jerks", loss of balance causing fall Active Assessment and Plan Extracted from: Title:Office Visit Note Author:DO Gifford Ravin Date:08/12/23 1.Ambulatory dysfunction Patient haschronic ambulatory dysfunction secondary tononoperable femur fracture and body habitus. She is requesting motorized wheelchair which orthopedics has provided her with a referral explained to her and her caregiverthat she needs totake this to a certified medical asst storein order to get this motorized scooter 2.Femur fracture, right Was seen by orthopedics this week,her femur fracturedoes not have anyoperative options at this point. Patient is asking for increases in her opiate medication. I explained to herand the cobol mainframe developer thatwe would not be ableincreasing her pain meds today. I explained to her that she can increase her dose of Tylenoland try topicalthings such as Voltaren and lidocaine patchesand I offered her physical therapy however she declined. I explained to her thatpain managementwould be a better option for her skilled nursing. Will give her #40 tabOXYCODONE 5mg pt at end of visit requested flu shot Immunizations Given and Recorded Vaccine Date Status [...] q6h, Disp# 6.7 g, Refills: 5, Pharmacy: [id number] Start Date: 07/20/23 Status: Ordered aspirin 81 mg oral delayed release tablet Start: 08/12/23 13:12:00 EDT, 1 tab, PO, Daily, Disp# 90 tab, 81 Unknown, Oral, 1 Refill(s), Pharmacy: [id number] Start Date: 08/12/23 Status: Ordered atorvastatin 40 mg oral tablet Start: 08/12/23 13:12:00 EDT, 1 tab, PO, Daily, Disp# 30 tab, Refills: 3, Pharmacy: [id number] Start Date: 08/12/23 Stop Date: 12/10/23 Status: Ordered azithromycin 250 mg oral tablet Start: 08/12/23 13:12:00 EDT, See Instructions, Disp# 30 tab, Refills: 1, 1 tab PO Tuesday, Tuesday and Tuesday, Pharmacy: [id number] Start Date: 08/12/23 Status: Ordered buPROPion 100 mg/12 hours (SR) oral tablet, extended release Start: 07/29/23 12:06:00 EDT, See Instructions, Disp# 90 tab, Refills: 1, take 1 tablet by mouth inthe morning and 2 tablets in the evening, Pharmacy: [id number] Start Date: 07/29/23 Status: Ordered Combivent Respimat 20 mcg-100 mcg/inh inhalation aerosol Start: 08/12/23 13:11:00 EDT, 1 puff, inhaled, q4h, Disp# 1 each, Refills: 2, Pharmacy: [id number] Start Date: 08/12/23 Status: Ordered docusate sodium 100 mg oral capsule Start: 08/12/23 13:12:00 EDT, 1 cap, PO, bid, Disp# 60 cap, 100 Unknown, Oral, 1 Refill(s), Pharmacy: [id number] Start Date: 08/12/23 Status: Ordered folic acid 1 mg oral tablet Start: 07/29/23 12:06:00 EDT, See Instructions, Disp# 30 tab, Refills: 1, TAKE 1 TABLET BY MOUTH ONCE DAILY, Pharmacy: [id number] Start Date: 07/29/23 Status: [...] ONE TABLET BY MOUTH EVERY MORNING, Pharmacy: [id number] Start Date: 06/25/23 Status: Ordered Jardiance 25 mg oral tablet See Instructions, Disp# 30 tab, Refills: 5, TAKE ONE TABLET BY MOUTH EVERY MORNING , Pharmacy: [facility][id number] Start Date: 11/02/21 Status: Ordered levothyroxine 200 mcg (0.2 mg) oral tablet Start: 08/12/23 13:12:00 EDT, 1 tab, PO, Daily, Disp# 30 tab, Refills: 1, Pharmacy: [id number] Start Date: 08/12/23 Stop Date: 10/11/23 Status: Ordered levothyroxine 25 mcg (0.025 mg) oral tablet Start: 08/12/23 13:12:00 EDT, 1 tab, PO, Daily, Disp# 30 tab, Refills: 1, Note to Pharmacy: should be on 225 mcg, Pharmacy: [id number] Start Date: 08/12/23 Stop Date: 10/11/23 Status: Ordered loratadine 10 mg oral tablet Start: 05/20/21 10:40:00 EDT, 10 Unknown, Oral, 1 Refill(s) Start Date: 05/20/21 Status: Ordered metOLazone 2.5 mg oral tablet Start: 03/03/21 10:07:00 EDT Start Date: 03/03/21 Status: Ordered Metoprolol Tartrate 25 mg oral tablet Start: 07/29/23 12:06:00 EDT, See Instructions, Disp# 60 tab, Refills: 1, TAKE 1 TABLET BY MOUTH TWICE DAILY, Pharmacy: [id number] Start Date: 07/29/23 Status: Ordered montelukast 10 mg oral tablet Start: 06/02/23 13:35:00 EDT, See Instructions, Disp# 30 tab, Refills: 11, TAKE 1 TABLET BY MOUTH EVERY EVENING, Pharmacy: [id number] Start Date: 06/02/23 Status: Ordered nitroglycerin 0.4 mg sublingual tablet Start: 05/07/21 10:58:00 EDT, 1 tab, SL, q5min, Disp# 25 tab, PRN: as needed for chest pain Start Date: 05/07/21 Status: Ordered oxyCODONE 5 mg oral tablet Start: 08/12/23 13:51:00 EDT, 5 mg =, PO, q6h, Disp# 40 tab, Refills: 0, PRN: pain - severe (7-10),Pharmacy: [id number] Start Date: 08/12/23 Status: Ordered pantoprazole 40 mg oral delayed release tablet Start: 07/29/23 12:06:00 EDT, See Instructions, Disp# 30 tab, Refills: 1, TAKE 1 TABLET BY MOUTH ONCE DAILY, Pharmacy: [facility] Start Date: 07/29/23 Status: Ordered Potassium Chloride (Gor-Emzk-Ypd 10) 10 mEq oral tablet, extended release Start: 07/29/23 12:06:00 EDT, See Instructions, Disp# 60 tab, Refills: 1, TAKE 1 TABLET BY MOUTH TWICE DAILY, Pharmacy: [facility] Start Date: 07/29/23 Status: Ordered Salonpas Maximum Strength 4% topical film Start: 09/10/20 10:40:00 EDT, See Instructions, Disp# 30 film, Refills: 3, do not leave patch on for more than 8 hours at a time, Pharmacy: [facility] Start Date: 09/10/20 Status: Ordered spironolactone 25 mg oral tablet Start: 06/25/23 15:50:00 EDT, 1 tab, PO, Daily, Disp# 30 tab, Refills: 1, Pharmacy: [id number] Start Date: 06/25/23 Stop Date: 08/24/23 Status: Ordered Killbuck Carlos Start: 08/12/23 12:52:00 EDT Start Date: 08/12/23 Status: Ordered topiramate 100 mg oral tablet Start: 07/29/23 12:06:00 EDT, See Instructions, Disp# 90 tab, Refills: 1, TAKE ONE TABLET BY MOUTH EVERY MORNING AND TWO TABLETS AT BEDTIME., Pharmacy: [id number] Start Date: 07/29/23 Status: Ordered torsemide 20 mg oral tablet Start: 01/15/20 13:17:00 EST, 2 tab, PO, Daily Start Date: 01/15/20 Status: Ordered Voltaren 1% topical gel Start: 06/02/23 13:30:00 EDT, 2 g =, topical, qid, Disp# 100 g, Refills: 2, not to exceed 16 grams/day/single joint of lower extremities, Pharmacy: [facility] #[id number] Start Date: 06/02/23 Stop Date: 08/31/23 Status: Ordered Mental Status 08/12/23 Barriers to Learning one year None evide nt Mandatory Health Literacy Documentation Yes Health Literacy Communication Barriers N ever Primary Language German Problem List Condition Confirmation Course Effective Dates [...] Ambulatory dysfunction Confirmed Active 1sees endocrine - Fidelia 2Dr. Donell 3Dr. Fidelia Pappas 4On 5L oxygen at night. 5Steve Malin - MNP pulmonary Diagnosis Diagnosis Type Effective Dates Health Status Clinical Service Informant Ambulatory dysfunction Discharge Diagnosis 08/12/23 Femur fracture, right Discharge Diagnosis 08/12/23 Procedures Procedure Date Related Diagnosis Body Site [...] 02/29/08 Comp leted Appendicectomy Completed Cholecystectomy Completed [facility] BSO - Total abdominal hy sterectomy [...] and an infectious/inflammatory process cannot be excluded. [id number] 25stg 4 ovarian cancer Vital Signs Most recent to oldest [Reference Range]: 1 Temperature [36.5-37.9 DegC] 36.6 DegC (08/12/23 1:05 PM) Respiratory Rate 17 br/min (08/12/23 1:05 PM) Blood Pressure 130/64mmHg (08/12/23 1:05 PM) BP Location # 1 Left Arm (08/12/23 1:05 PM) Social History Social History Type Response Tobacco 1 Smoking Status Never smoked cigaret charito Sex Female 1none FCM Outpt Note * MD Garcia Virginia: MODIFY MD Garcia Virginia: MODIFY, MODIFY Event Display: FCM Outpt Note Authored Date: [id number] Chief Complaint pt here requesting electric w/c, has reg. not working well, requesting higher dose of oxycodone 10mg takes 5mg now but taking 2 tabs of 5. was on 5's at day 10 at night. refill on all meds History of Present Illness This is a 68-year-old femalewith significantdisability. She is unable to use a walker or canesafelyandis in need of a wheelchair to safely perform [facility] She was recently seen byorthopedicsand being followed for a right distal femur fracture. Perortho note Order for power wheelchair provided to obtain at [facility] or [facility] which I discussed will be a process involving paperwork and correlation with insurance. Patient reports that she is in pain all the time secondary to thisfemur fracture that has beendeemed inoperableby multiple tertiary care centers. She has had4 hospitalizations in the lastyear for this and for pain. She is currently taking 1000 mg of Tylenolfollowed byoxycodone 5 mgup to 4 times daily. She is requesting increased dose to 10 mgthat she can take. I had alengthy discussion with the patient explaining thatfor pain medicationsespeciallyopioid medications that she would require she would better beserved and followed closely by a pain management doctor. Who could providebetter pain options Physical Exam Vitals & Measurements T:36.6C RR:17 BP:130/64 SpO2:95% PHQ2 Data(Data Documented on:08/12/2023 12:55) Emotional health assessment NEGATIVE GENERAL APPEARANCE: The patient is alert, oriented and in no acute distress. VITALS: As above. HEENT: Head is normocephalic/atraumatic. CARDIOVASCULAR: Regular rate and rhythm, no m/r/g. LUNGS: Clear to auscultation bilaterally. No wheezes/rales/rhonchi. EXTREMITIES: No cyanosis, clubbing or edema. NEUROLOGICAL: Grossly non-focal exam. SKIN: Warm and dry without any rash. Assessment/Plan 1.Ambulatory dysfunction Patient haschronic ambulatory dysfunction secondary tononoperable femur fracture and body habitus. She is requesting motorized wheelchair which orthopedics has provided her with a referral explained to her and her caregiverthat she needs totake this to a certified medical asst storein order to g et this motorized scooter 2.Femur fracture, right Was seen by orthopedics this week,her femur fracturedoes not have anyoperative options at this point. Patient is asking for increases in her opiate medication. I explained to herand the cobol mainframe developer thatwe would not be ableincreasing her pain meds today. I explained to her that she can increase her dose of Tylenoland try topicalthings such as Voltaren and lidocaine patchesandI offered her physical therapy however she declined. I explained to her thatpain managementwould be a better option for her skilled nursing. Will give her #40 tabOXYCODONE 5mg pt at end of visit requested flu shot Attestation Pt seen and examined in concert with ,agree with history and physical as documented above. Plan reviewed in detail. Any corrections or additions are noted here. Informed patient about pain management, we will renew the #40 tablets of Oxycodone. Patient prior to discharge asked help to go to the restroom. Afterwards she was found on the floor not able to get up and started to have sob.EMS called for help. She was taken to ER for evaluation. Problem List/Past Medical History Ongoing Ambulatory dysfunction Anemia Anxiety Arthritis Bronchiectasis Chronic back pain Chronic right heart failure CKD (chronic kidney disease), stage IV Coronary artery disease Depression Diabetic neuropathy Diastolic heart failure Distal radius fracture, left Femur fracture, right Glaucoma Hoarding behavior Hyperlipidemia Hypertension Hypothyroid Impaired mobility Ingrown toenail of both feet Insulin dependent diabetes mellitus Left knee DJD Left lumbar radiculopathy Migraine Morbid obesity Nocturnal hypoxia Obesity hypoventilation syndrome Ovarian cancer Pain of right great toe Right foot pain Severe persistent asthma Status post tracheostomy Procedure/Surgical History Echocardiogram (10/02/2022)X-ray (03/25/2022)X-ray (03/25/2022)CAT scan (03/25/2022)Chest x-ray (03/23/2022)X-ray (02/25/2022)Plain X-ray of left forearm (11/25/2021)Chest X-ray (11/25/2021)Chest X-ray (06/08/2021)Echocardiogram (04/15/2021)LOWER EXTREMITY STUDY ()Venous doppler LE BI (04/14/2021)Diabetic retinal eye exam (07/07/2020)X-ray of right knee (06/20/2020)Duplex scan of lower limb veins (06/23/2018)Chest x-ray (06/12/2018)Chest x-ray (02/27/2018)Chest x-ray (01/19/2018)Chest x-ray (01/16/2018)Chest x-ray (01/15/2018)Chest x-ray (01/10/2018)Diagnostic mammogram (09/30/2017)Chest x-ray (01/15/2016)H/O:tracheostomy (02/29/2008)Tonsillectomy and adenoidectomyCholecystectomyAppendicectomyTAH BSO - Total abdominal hysterectomy and bilateral salpingo-oophorectomy Medications acetaminophen(acetaminophen 325 mg oral tablet) albuterol(Albuterol (Eqv-ProAir HFA) 90 mcg/inh inhalation aerosol), 2 puff, inhaled, q6h, 5 refills albuterol-ipratropium(Combivent Respimat 20 mcg-100 mcg/inh inhalation aerosol), 1 puff, inhaled, q4h, 2 refills aspirin(aspirin 81 mg oral delayed release tablet), 81 mg= 1 tab, PO, Daily atorvastatin(atorvastatin 40 mg oral tablet), 40 mg= 1 tab, PO, Daily, 3 refills azithromycin(azithromycin 250 mg oral tablet), See Instructions, 1 refills buPROPion(buPROPion 100 mg/12 hours (SR) oral tablet, extended release), See Instructions, 1 refills camphor-menthol topical(Killbuck Carlos) diclofenac topical(Voltaren 1% topical gel), 2 g, topical, qid, 2 refills docusate(docusate sodium 100 mg oral capsule), 100 mg= 1 cap, PO, bid empagliflozin(Jardiance 25 mg oral tablet), See Instructions folic acid(folic acid 1 mg oral tablet), See Instructions, 1 refills furosemide, 10 mg, PO, Daily insulin lispro(HumaLOG Vial 100 units/mL injectable solution), subQ, Daily isosorbide mononitrate(isosorbide mononitrate 60 mg oral tablet, extended release), See Instructions, 1 refills levothyroxine(levothyroxine 200 mcg (0.2 mg) oral tablet), 200 mcg= 1 tab, PO, Daily, 1 refills levothyroxine(levothyroxine 25 mcg (0.025 mg) oral tablet), 25 mcg= 1 tab, PO, Daily, 1 refills lidocaine topical(Salonpas Maximum Strength 4% topical film), See Instructions, 3 refills loratadine(loratadine 10 mg oral tablet) metOLazone(metOLazone 2.5 mg oral tablet) metoprolol(Metoprolol Tartrate 25 mg oral tablet), See Instructions, 1 refills montelukast(montelukast 10 mg oral tablet), See Instructions, 11 refills nitroglycerin(nitroglycerin 0.4 mg sublingual tablet), 0.4 mg= 1 tab, SL, q5min, PRN oxyCODONE(oxyCODONE 5 mg oral tablet), 5 mg= 1 tab, PO, q6h, PRN pantoprazole(pantoprazole 40 mg oral delayed release tablet), See Instructions, 1 refills potassium chloride(Potassium Chloride (Tyr-Vfjd-Ayf 10) 10 mEq oral tablet, extended release), See Instructions, 1 refills spironolactone(spironolactone 25 mg oral tablet), 25 mg= 1 tab, PO, Daily, 1 refills topiramate(topiramate 100 mg oral tablet), See Instructions, 1 refills torsemide(torsemide 20 mg oral tablet), 40 mg= 2 tab, PO, Daily Allergies Elavil (Moderate)Violent behavior Neurontin (Moderate)Violent behavior Duratuss DM (Mild)unknown Glucophage (Mild)Nausea amoxicillin (Mild)Rash doxycycline (Mild)unknown penicillin (Mild)Hives Lyrica"jerks", loss of balance causing fall Social History Smoking Status Never smoked cigarettes Alcohol - Comments: none Employment/School Status:Retired Description:[employer]. Home/Environment Lives with:Children Other risks in environment:Pets/Animal exposure - Comments: lives with daughter, Tobacco - Comments: none Family History Alcoholism: PGF. COPD: Mother. Cancer: PGF. Glaucoma: Mother and Brother. Heart attack: MGM, PGF and PGM. Hypertension: Mother, Brother and MGM. Malignant tumor of lung: Brother. Type II diabetes mellitus: Mother, MGM and PGM. Health Status Family Member(s) Immunizations Vaccine Date Status influenza virus vaccine, inactivated 11/19/2021 Given SARS-CoV-2 (COVID-19) mRNA BNT-162b2 vax 03/05/2021 Recorded SARS-CoV-2 (COVID-19) mRNA BNT-162b2 vax 02/12/2021 Recorded influenza virus vaccine, inactivated 08/23/2017 Recorded influenza virus vaccine, inactivated 09/27/2016 Recorded pneumococcal 23-valent vaccine 09/27/2016 Recorded Comments : 2020-01-15: Historical information-source unspecified influenza virus vaccine, inactivated 08/26/2015 Recorded pneumococcal 13-valent vaccine 04/29/2015 Recorded influenza virus vaccine, inactivated 08/15/2014 Recorded influenza virus vaccine, inactivated 08/23/2013 Recorded influenza virus vaccine, inactivated 07/25/2012 Recorded influenza virus vaccine, inactivated 08/27/2011 Recorded tetanus/diphtheria/pertuss, acel (Tdap) 07/29/2011 Recorded Comments : 2020-01-15: Historical information-source unspecified influenza virus vaccine, inactivated 08/28/2010 Recorded Recommendations Health Maintenance Pending(in the next year) OverDue Colorectal Cancer Screening due07/13/22and every 3year Breast Cancer Screening due09/26/22and every 731day Diabetic Eye Exam due01/26/23and every 1year Body Mass Index due02/02/23and every 1year Adult Influenza Vaccine due05/21/23and every 1year Due Diabetes Management A1c due07/25/23and every 1year Adult COVID-19 Vaccination due08/12/23Unknown Frequency Adult Tdap/Td Vaccine due08/12/23Unknown Frequency Hepatitis C Screening due08/12/23One-time only Medicare Annual Wellness Visit due08/12/23and every 1year Pneumococcal Vaccine Older Adults due08/12/23One-time only Shingles Vaccine due08/12/23One-time only Satisfied(in the past 1 year) There are no satisfied recommendations within the defined date range Electronic Signature on File Electronically Reviewed/Signed by: Ahmet Gifford DO Author Signature Dt/Tm:08/12/2023 01:50 PM Resident Division of Sports Medicine Electronically Reviewed/Signed by: MD Evie Barrera Signature Dt/Tm: 08/15/2023 02:19 AM Department of Family Medicine RP Patient Care team information Care Team Personnel Name: MONISHA Baltazar, Kaylynn Snow Position: Physician - Podiatry Member Role: Lifetime Relationship Address: Address: [address] [place] [address] Name: MD Mcgee Madhavi Position: Physician - Family Med Member Role: Primary Care Provider Address: Address: [address] [place] [address] Care Team Related Persons Name: CÉSAR NICOLE Address: [address] [place] BHAT [phone]
--- OUTSIDE RECORDS SUMMARY | 2023-10-17 12:18 | External Medical Summary | Continuity of Care Document ---
Author Name Unknown Organization [facility] [address] [facility] [address] [id number] Care Team Providers Care [employer] Teacher Name Role Phone Everardo Ofe Primary Care Physician [phone] Encounter [facility] [id number] Date(s): 07/12/23 - 07/12/23 [facility] [address] [facility] 207 [facility] Practice Site [address] [facility] [address] [place], [place] [address]Xvptd [phone] Encounter Diagnosis Ambulatory dysfunction(Discharge Diagnosis) - 07/12/23 Anxiety(Discharge Diagnosis) - 07/12/23 Obesity hypoventilation syndrome(Discharge Diagnosis) - 07/12/23 CKD (chronic kidney disease), stage IV(Discharge Diagnosis) - 07/12/23 Femur fracture, right(Discharge Diagnosis) - 07/12/23 Fracture of distal end of right femur(Discharge Diagnosis) - 07/12/23 Discharge Disposition: Home or Self Care Attending Physician: DO Strauss Gretchen Elizabeth Allergies, Adverse Reactions, Alerts Substance Reaction Severity [...] g, Refills: 1, 8 unknown unit, Pharmacy: [id number] Start Date: 06/02/23 Status: Ordered aspirin 81 mg oral delayed release tablet Start: 05/20/21 10:40:00 EDT, 81 Unknown, Oral, 1 Refill(s) Start Date: 05/20/21 Status: Ordered atorvastatin 40 mg oral tablet Start: 06/02/23 13:33:00 EDT, 1 tab, PO, Daily, Disp# 30 tab, Refills: 3, Pharmacy: [id number] Start Date: 06/02/23 Stop Date: 09/30/23 Status: Ordered azithromycin 250 mg oral tablet Start: 06/02/23 13:29:00 EDT, See Instructions, Disp# 30 tab, Refills: 1, 1 tab PO Tuesday, Tuesday and Tuesday, Pharmacy: [id number] Start Date: 06/02/23 Status: Ordered buPROPion 100 mg/12 hours (SR) oral tablet, extended release Start: 06/02/23 13:30:00 EDT, See Instructions, Disp# 90 tab, Refills: 1, take 1 tablet by mouth inthe morning and 2 tablets in the evening, Pharmacy: [id number] Start Date: 06/02/23 Status: Ordered Combivent Respimat 20 mcg-100 mcg/inh inhalation aerosol Start: 06/02/23 13:28:00 EDT, 1 puff, inhaled, q4h, Disp# 1 each, Refills: 2, Pharmacy: [id number] Start Date: 06/02/23 Status: Ordered docusate sodium 100 mg oral capsule Start: 05/20/21 10:40:00 EDT, 100 Unknown, Oral, 1 Refill(s) Start Date: 05/20/21 Status: Ordered folic acid 1 mg oral tablet Start: 06/02/23 13:31:00 EDT, See Instructions, Disp# 30 tab, Refills: 1, TAKE 1 TABLET BY MOUTH ONCE DAILY, Pharmacy: [id number] Start Date: 06/02/23 Status: [...] ONE TABLET BY MOUTH EVERY MORNING, Pharmacy: [id number] Start Date: 06/25/23 Status: Ordered Jardiance 25 mg oral tablet See Instructions, Disp# 30 tab, Refills: 5, TAKE ONE TABLET BY MOUTH EVERY MORNING , Pharmacy: [facility][id number] Start Date: 11/02/21 Status: Ordered levothyroxine 200 mcg (0.2 mg) oral tablet Start: 06/02/23 13:34:00 EDT, 1 tab, PO, Daily, Disp# 30 tab, Refills: 1, Pharmacy: [id number] Start Date: 06/02/23 Stop Date: 08/01/23 Status: Ordered levothyroxine 25 mcg (0.025 mg) oral tablet Start: 06/25/23 15:49:00 EDT, 1 tab, PO, Daily, Disp# 30 tab, Refills: 1, Note to Pharmacy: should be on 225 mcg, Pharmacy: [id number] Start Date: 06/25/23 Stop [...] 1 TABLET BY MOUTH TWICE DAILY, Pharmacy: [id number] Start Date: 06/02/23 Status: Ordered montelukast 10 mg oral tablet Start: 06/02/23 13:35:00 EDT, See Instructions, Disp# 30 tab, Refills: 11, TAKE 1 TABLET BY MOUTH EVERY EVENING, Pharmacy: [id number] Start Date: 06/02/23 Status: Ordered nitroglycerin 0.4 mg sublingual tablet Start: 05/07/21 10:58:00 EDT, 1 tab, SL, q5min, Disp# 25 tab, PRN: as needed for chest pain Start Date: 05/07/21 Status: Ordered oxyCODONE 5 mg oral tablet Start: 07/07/23 10:37:00 EDT, 1 tab, PO, q6h, Disp# 40 tab, Refills: 0, PRN: pain - severe (7-10), Pharmacy: [id number] Start Date: 07/07/23 Status: Ordered pantoprazole 40 mg oral delayed release tablet Start: 06/02/23 13:35:00 EDT, See Instructions, Disp# 30 tab, Refills: 1, TAKE 1 TABLET BY MOUTH ONCE DAILY, Pharmacy: [id number] Start Date: 06/02/23 Status: Ordered Potassium Chloride ([id number] 10) 10 mEq oral tablet, extended release Start: 06/02/23 13:35:00 EDT, See Instructions, Disp# 60 tab, Refills: 1, TAKE 1 TABLET BY MOUTH TWICE DAILY, Pharmacy: [id number] Start Date: 06/02/23 Status: Ordered Salonpas Maximum Strength 4% topical film Start: 09/10/20 10:40:00 EDT, See Instructions, Disp# 30 film, Refills: 3, do not leave patch on for more than 8 hours at a time, Pharmacy: [id number] Start Date: 09/10/20 Status: Ordered spironolactone 25 mg oral tablet Start: 06/25/23 15:50:00 EDT, 1 tab, PO, Daily, Disp# 30 tab, Refills: 1, Pharmacy: [id number] Start Date: 06/25/23 Stop Date: 08/24/23 Status: Ordered topiramate 100 mg oral tablet Start: 06/02/23 13:32:00 EDT, See Instructions, Disp# 90 tab, Refills: 1, TAKE ONE TABLET BY MOUTH EVERY MORNING AND TWO TABLETS AT BEDTIME., Pharmacy: [id number] Start Date: 06/02/23 Status: Ordered torsemide 20 mg oral tablet Start: 01/15/20 13:17:00 EST, 2 tab, PO, Daily Start Date: 01/15/20 Status: Ordered Voltaren 1% topical gel Start: 06/02/23 13:30:00 EDT, 2 g =, topical, qid, Disp# 100 g, Refills: 2, not to exceed 16 grams/day/single joint of lower extremities, Pharmacy: [id number] Start Date: 06/02/23 Stop Date: 08/31/23 Status: Ordered Mental Status 07/12/23 Barriers to Learning one year None evide nt Mandatory Health Literacy Documentation Yes Health Literacy Communication Barriers N ever Primary Language [place] Problem List Condition Confirmation Course Effective Dates [...] Active 1sees endocrine - Fidelia 2Dr. Donell 3DrSuyapa Huerta - Fidelia Wick 4On 5L oxygen at night. 5Steve Kimo - [facility] pulmonary Diagnosis Diagnosis Type Effective Dates Health Status Clinical Service Informant Ambulatory dysfunction Discharge Diagnosis 07/12/23 Anxiety Discharge Diagnosis 07/12/23 Femur fracture, right Discharge Diagnosis 07/12/23 Obesity hypoventilation syndrome Discharge Diagnosis 07/12/23 CKD (chronic kidney disease), stage IV Discharge Diagnosis 07/12/23 Fracture of distal end of right femur Discharge Diagnosis 07/12/23 Procedures Procedure Date Related Diagnosis Body Site [...] and an infectious/inflammatory process cannot be excluded. [id number] 4 ovarian cancer Social History Social History Type Response Tobacco 1 Smoking Status Never smoked cigaret charito Sex Female 1none Patient Care team information Care Team Personnel Name: MONISHA Baltazar, Kaylynn Snow Position: Physician - Podiatry Member Role: Lifetime Relationship Address: Address: [address] [place] [address] [address] [place] [address] [place] Name: MD Mcgee Madhavi Position: Physician - Family Med Member Role: Primary Care Provider Address: Address: [address] [facility] [address] [place] [address] [place] Care Team Related Persons Name: CÉSAR NICOLE Address: [address] [place] [phone]
--- OUTSIDE RECORDS SUMMARY | 2023-10-17 12:18 | External Medical Summary | Continuity of Care Document ---
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 [phone] Date(s): 09/06/23 - 09/06/23 [facility] [address] [facility] [address] [id number] [phone] Encounter Diagnosis Obesity hypoventilation syndrome(Discharge Diagnosis) - 09/06/23 Ovarian cancer(Discharge Diagnosis) - 09/06/23 Skin breakdown(Discharge Diagnosis) - 09/06/23 Ambulatory dysfunction(Discharge Diagnosis) - 09/06/23 Diastolic heart failure(Discharge Diagnosis) - 09/06/23 CKD (chronic kidney disease), stage IV(Discharge Diagnosis) - 09/06/23 Difficulty in walking, not elsewhere classified(Final) - Unspecified diastolic (congestive) heart failure(Final) - Chronic kidney disease, stage 4 (severe)(Final) - Chronic right heart failure(Final) - Type 2 diabetes mellitus with diabetic neuropathy, unspecified(Final) - Bronchiectasis, uncomplicated(Final) - Displaced supracondylar fracture without intracondylar extension of lower end of right femur, subsequent encounter for closed fracture with nonunion(Final) - Other specified hypothyroidism(Final) - Type 2 diabetes mellitus without complications(Final) - Morbid (severe) obesity due to excess calories(Final) - Morbid (severe) obesity with alveolar hypoventilation(Final) - Hypothyroid(Discharge Diagnosis) - 09/06/23 Femur fracture, right(Discharge Diagnosis) - 09/06/23 Morbid obesity(Discharge Diagnosis) - 09/06/23 Insulin dependent diabetes mellitus(Discharge Diagnosis) - 09/06/23 Dysuria(Discharge Diagnosis) - 09/06/23 Discharge Disposition: Home or Self Care Attending Physician: MD Bradford Christopher Allergies, Adverse Reactions, Alerts Substance Reaction Severity Status doxycycline unknown Mild Active amoxicillin Rash Mild Active penicillin Hives Mild Active Duratuss DM unknown Mild Active Neurontin Violent behavior Moderate Active Glucophage Nausea Mild Active Elavil Violent behavior Moderate Active Lyrica "jerks", loss of balance causing fall Active Assessment and Plan Extracted from: Title:Office Visit Note Author:DO Grey Eric Da te:09/06/23 1.Ambulatory dysfunction -Patient cannot safely use a walker or cane safely. She is currently in a wheelchair but has trouble with ADLs in her home. We will recommend getting an electric wheelchair to help with ADLs. -Majority of patient's ambulatory issues resolved from her femur fracture of her right femur and overall obesity. We will try to better control pain from right femur fracture as stated below. -Reviewed notes of Ortho, Dr. Su has already sent in a request for a wheelchair for the patient. Recommend patient go to [facility] to berry picker wheelchair. 2.Diastolic heart failure -Not currently fluid overloaded at this time. -Follow-up with cardiology recommended at this time. 3.CKD (chronic kidney disease), stage IV -We will check creatinine and labs today. 4.Femur fracture, right -Patient has seen Ortho and pain management for her right femur fracture. Reviewed notes from Ortho and pain management. -Ortho defers to PCP for pain management. -Pain management also defers to PCP for pain management treatment as they cannot offer her any services at this time. -Patient is currently out of oxycodone and having trouble with sleeping. States that she is in great pain and that the oxycodone is needed every 6 hours. -We will start patient on a fentanyl 12 mcg/h transdermal patch that she is to wear for 72 hours. -Controlled substance agreement filled out in office today and urine drug screen ordered. -We will hold off on oxycodone treatment as this has not been very successful for treating patient's pain. -PT referral has already been placed for patient recommend patient seek out physical therapy to help with pain. 5.Hypothyroid -Patient is on Synthroid 225 mg once a day. Has not had TSH since hospitalization. -We will order TSH and refill meds once TSH results are back given that she still has a month supply left of her medication. 6.Insulin dependent diabetes mellitus -Patient with a continuous insulin pump. -States that it has been mostly controlled. -We will order hemoglobin A1c, CBC, CMP, and urine microalbumin/creatinine ratio at this time. -Patient follows with endocrinology but has not been able to get into appointment due to not being able to get out of her house. Would recommend follow-up with endocrine as soon as possible. 7.Morbid obesity -A lot of patient's issues stem from her morbid obesity. -Bariatric surgery may be a route to consider in the near future though she is a poor candidate for surgery at this time. 8.Obesity hypoventilation syndrome -On trach requiring oxygen at night. -May be contributing to sleep issues, will assess after pain is well-managed. 9.Dysuria -Patient with dysuria for the past 3 weeks and having trouble with urination. -We will order UA and check CMP. -If positive will prescribe antibiotic for possible UTI as she has a high risk for developing UTI given her ambulatory dysfunction. 10.Skin breakdown -No open wounds seen on physical exam today though there is states there is some skin breakdown on her inner thigh without any open wounds. -We will prescribe ointment for patient to be applied twice a day for skin breakdown. 11.Ovarian cancer -Unable to obtain records from ovarian cancer. States that she had her ovaries out in between 1997 2007 -We will try to obtain records. f/u in one month for multiple issues. Thank you for allowing me to participate in this patient's care. Please refer to my attending's attestation for further documentation. Jasper Grey D.O. PGY 2, [facility]CM Immunizations Given and Recorded Vaccine Date Status [...] Govind rded SARS-CoV-2 (COVID-19) mRNA BNT-162b2 vax 4/15/21 Recorded SARS-CoV-2 (COVID-19) mRNA BNT-162b2 vax 02/12/21 [...] q6h, Disp# 6.7 g, Refills: 5, Pharmacy: [id number] Start Date: 07/20/23 Status: Ordered aspirin 81 mg oral delayed release tablet Start: 08/12/23 13:12:00 EDT, 1 tab, PO, Daily, Disp# 90 tab, 81 Unknown, Oral, 1 Refill(s), Pharmacy: [facility] Start Date: 08/12/23 Status: Ordered atorvastatin 40 mg oral tablet Start: 08/12/23 13:12:00 EDT, 1 tab, PO, Daily, Disp# 30 tab, Refills: 3, Pharmacy: [facility] Start Date: 08/12/23 Stop Date: 12/10/23 Status: Ordered azithromycin 250 mg oral tablet Start: 08/12/23 13:12:00 EDT, See Instructions, Disp# 30 tab, Refills: 1, 1 tab PO Tuesday, Tuesday and Tuesday, Pharmacy: [facility] Start Date: 08/12/23 Status: Ordered buPROPion 100 mg/12 hours (SR) oral tablet, extended release Start: 07/29/23 12:06:00 EDT, See Instructions, Disp# 90 tab, Refills: 1, take 1 tablet by mouth inthe morning and 2 tablets in the evening, Pharmacy: [facility] Start Date: 07/29/23 Status: Ordered Combivent Respimat 20 mcg-100 mcg/inh inhalation aerosol Start: 08/12/23 13:11:00 EDT, 1 puff, inhaled, q4h, Disp# 1 each, Refills: 2, Pharmacy: [facility] Start Date: 08/12/23 Status: Ordered docusate sodium 100 mg oral capsule Start: 08/12/23 13:12:00 EDT, 1 cap, PO, bid, Disp# 60 cap, 100 Unknown, Oral, 1 Refill(s), Pharmacy: [facility] Start Date: 08/12/23 Status: Ordered Duragesic-12 transdermal film, extended release Start: 09/08/23 16:57:00 EDT, 1 patch, topical, q72h, Disp# 10 patch, Refills: 0, apply to skin as directed on package labeling, Note to Pharmacy: Can use generic formulation, Pharmacy: [facility] Start Date: 09/08/23 Status: Ordered fentaNYL 12 mcg/hr transdermal film, extended release Start: 09/06/23 11:30:00 EDT, 1 patch, topical, q72h, Disp# 10 patch, Refills: 0, apply to skin. Change every 72 hours to new site as directed on package labeling, Pharmacy: [facility] Start Date: 09/06/23 Stop Date: 10/06/23 Status: Ordered folic acid 1 mg oral tablet Start: 07/29/23 12:06:00 EDT, See Instructions, Disp# 30 tab, Refills: 1, TAKE 1 TABLET BY MOUTH ONCE DAILY, Pharmacy: [facility] Start Date: 07/29/23 Status: [...] ONE TABLET BY MOUTH EVERY MORNING, Pharmacy: [facility] Start Date: 08/15/23 Status: Ordered Jardiance 25 mg oral tablet See Instructions, Disp# 30 tab, Refills: 5, TAKE ONE TABLET BY MOUTH EVERY MORNING , Pharmacy: [facility]187 Start Date: 11/02/21 Status: Ordered levothyroxine 200 mcg (0.2 mg) oral tablet Start: 09/07/23 21:42:00 EDT, 1 tab, PO, Daily, Disp# 30 tab, Refills: 6, Pharmacy: [facility] Start Date: 09/07/23 Stop Date: 04/04/24 Status: Ordered levothyroxine 25 mcg (0.025 mg) oral tablet Start: 09/07/23 21:41:00 EDT, 1 tab, PO, Daily, Disp# 30 tab, Refills: 6, Note to Pharmacy: should be on 225 mcg, Pharmacy: [facility] Start Date: 09/07/23 Stop Date: [...] 1 TABLET BY MOUTH TWICE DAILY, Pharmacy: [facility] Start Date: 07/29/23 Status: Ordered montelukast 10 mg oral tablet Start: 06/02/23 13:35:00 EDT, See Instructions, Disp# 30 tab, Refills: 11, TAKE 1 TABLET BY MOUTH EVERY EVENING, Pharmacy: [facility] Start Date: 06/02/23 Status: Ordered nitroglycerin 0.4 mg sublingual tablet Start: 05/07/21 10:58:00 EDT, 1 tab, SL, q5min, Disp# 25 tab, PRN: as needed for chest pain Start Date: 05/07/21 Status: Ordered pantoprazole 40 mg oral delayed release tablet Start: 07/29/23 12:06:00 EDT, See Instructions, Disp# 30 tab, Refills: 1, TAKE 1 TABLET BY MOUTH ONCE DAILY, Pharmacy: [facility] Start Date: 07/29/23 Status: Ordered Polysporin 500 units-10,000 units/g topical ointment Start: 09/06/23 11:49:00 EDT, 1 appl, topical, bid, Disp# 15 g, Refills: 1, Pharmacy: [facility] Start Date: 09/06/23 Stop Date: 10/04/23 Status: Ordered Potassium Chloride (Xif-Qkso-Aqd 10) 10 mEq oral tablet, extended release Start: 07/29/23 12:06:00 EDT, See Instructions, Disp# 60 tab, Refills: 1, TAKE 1 TABLET BY MOUTH TWICE DAILY, Pharmacy: [facility] Start Date: 07/29/23 Status: Ordered Salonpas Maximum Strength 4% topical film Start: 09/10/20 10:40:00 EDT, See Instructions, Disp# 30 film, Refills: 3, do not leave patch on for more than 8 hours at a time, Pharmacy: [facility] Start Date: 09/10/20 Status: Ordered sertraline 50 mg oral tablet Start: 08/17/23 13:19:00 EDT, 1 tab, PO, Daily, Disp# 30 tab, Refills: 6, Pharmacy: [facility] Start Date: 08/17/23 Stop Date: 03/14/24 Status: Ordered spironolactone 25 mg oral tablet Start: 08/15/23 12:51:00 EDT, 1 tab, PO, Daily, Disp# 30 tab, Refills: 3, Pharmacy: [facility] Start Date: 08/15/23 Stop Date: 12/13/23 Status: Ordered [place] Start: 08/12/23 12:52:00 EDT Start Date: 08/12/23 Status: Ordered topiramate 100 mg oral tablet Start: 07/29/23 12:06:00 EDT, See Instructions, Disp# 90 tab, Refills: 1, TAKE ONE TABLET BY MOUTH EVERY MORNING AND TWO TABLETS AT BEDTIME., Pharmacy: [facility] Start Date: 07/29/23 Status: Ordered torsemide 20 mg oral tablet Start: 01/15/20 13:17:00 EST, 2 tab, PO, Daily Start Date: 01/15/20 Status: Ordered Voltaren 1% topical gel Start: 06/02/23 13:30:00 EDT, 2 g =, topical, qid, Disp# 100 g, Refills: 2, not to exceed 16 grams/day/single joint of lower extremities, Pharmacy: [facility] #187 Start Date: 06/02/23 Stop Date: 08/31/23 Status: Ordered Mental Status 09/06/23 Barriers to Learning one year None evide nt Mandatory Health Literacy Documentation Yes Health Literacy Communication Barriers N ever Primary Language Arabic Problem List Condition Confirmation Course Effective Dates [...] 5L oxygen at night. 5Steve Kimo - [facility] pulmonary Diagnosis Diagnosis Type Effective Dates Health Status Clinical Service Informant Ambulatory dysfunction Discharge Diagnosis 09/06/23 Diastolic heart failure Discharge Diagnosis 09/06/23 Femur fracture, right Discharge Diagnosis 09/06/23 Skin breakdown Discharge Diagnosis 09/06/23 Non-Specified CKD (chronic kidney disease), stage IV Discharge Diagnosis 09/06/23 Hypothyroid Discharge Diagnosis 09/06/23 Insulin dependent diabetes mellitus Discharge Diagnosis 09/06/23 Morbid obesity Discharge Diagnosis 09/06/23 Obesity hypoventilation syndrome Discharge Diagnosis 09/06/23 Dysuria Discharge Diagnosis 09/06/23 Ovarian cancer Discharge Diagnosis 09/06/23 Procedures Procedure Date Related Diagnosis Body Site [...] and an infectious/inflammatory process cannot be excluded. [id number] 4 ovarian cancer Results Laboratory List Name Date Complete Blood Count w Differential (CBC ,DIFFH) 09/06/23 Comprehensive Metabolic Panel (COMP META B PANEL) 09/06/23 Hemoglobin A1C (HEMOGLOBIN, A1C) 3 Thyroid Stimulating Hormone (TSH) Most recent to oldest [Reference Range]: 1 HgbA1C Outside Ref Range 4.5-5.6 (03/29/23 11:14 AM) eGFR CKD-EPI [>60 mL/min/1.73 m2] 39 mL/ min/1.73 m2 1 *LOW* (09/06/23 12:07 PM) Estimated Average Glucose 123 mg/dL 2 (09/06/23 12: PM) MPV [9.0-12.2 fL] 9.5 fL (09/06/23 12:07 PM) Immature Gran% 0.5 % (09/06/23: PM) Neut% 76.5 % (09/06/23 12:07 PM) Lymph% 13.3 % (09/06/23 12:07 PM) [place]% 7.4 % (09/06/23 12:07 PM) Baso% 0.2 % (09/06/23 12: PM) Eos% 2.1 % (09/06/23 12:07 PM) Immat Gran, Abs [0-0.4 K/uL] 0.05 K/uL 3 (09/06/23 12:07 PM) Neut, Abs [2.0-7.7 K/uL] 7.42 K/uL (09/06/23 12:07 PM) Lymph, Abs [1.0-3.4 K/uL] 1.29 K/uL (09/06/23 12:07 PM) [place], Abs [0-1.0 K/uL] 0.72 K/uL (09/06/23 12:07 PM) Baso, Abs [0-0.1 K/uL] 0.02 K/uL (09/06/23 12:07 PM) Eos, Abs [0-0.5 K/uL] 0.20 K/uL (09/06/23 12:07 PM) Type of Diff: AUTO *Unknown* (09/06/23 12:07 PM) RDW [11.5-14.2 %] 16.4 % *HI* (09/06/23 12 PM) Anion Gap [5-14 mmol/L] 6 mmol/L (09/06/23 PM) Alb [3.5-5.0 g/dL] 3.9 g/dL (09/06/23 PM) Alk Phos [38-126 unit/L] 110 unit/L (09/06/23 PM) ALT [<35 unit/L] 22 unit/L (09/06/23 PM) AST [15-46 unit/L] 35 unit/L (09/06/23 PM) BUN [7-20 mg/dL] 20 mg/dL (09/06/23 PM) Ca [8.4-10.2 mg/dL] 8.9 mg/dL (09/06/23 PM) Cl- [96-107 mmol/L] 108 mmol/L *HI* (09/06/23) HCO3 [22-30 mmol/L] 28 mmol/L (09/06/23) Cret [0.60-1.00 mg/dL] 1.46 mg/dL *HI* (09/06/23 PM) HbA1c [4.0-6.0 %] 5.9 % (09/06/23 PM) Glu [74-106 mg/dL] 86 mg/dL (09/06/23 PM) Hct [35-44 %] 41.6 % (09/06/23 PM) Hgb [11.7-15.0 g/dL] 11.9 g/dL (09/06/23) K [3.5-5.1 mmol/L] 4.2 mmol/L (09/06/23 PM) MCH [28-33 pg] 26.6 pg *LOW* (09/06/23) MCHC [32-36 g/dL] 28.6 g/dL *LOW* (09/06/23 PM) MCV [81-96 fL] 92.9 fL (09/06/23 PM) Na [137-145 mmol/L] 142 mmol/L (09/06/23 PM) Plts [150-350 K/uL] 258 K/uL (09/06/23 12:07 PM) RBC [3.90-5.00 M/uL] 4.48 M/uL (09/06/23 12:07 PM) T Bili [0.2-1.3 mg/dL] 0.5 mg/dL (09/06/23 12:07 PM) Prot [6.3-8.2 g/dL] 8.1 g/dL (09/06/23 12:07 PM) TSH [0.47-4.68 uIU/mL] 1.63 uIU/mL 4 (09/06/23 12:07 PM) WBC [4.0-10.4 K/uL] 9.70 K/uL (09/06/23 12:07 PM) HGb A1C Outside 7.0 % (03/29/23 11:14 AM) 1Result Comment: Testing Performed By: Dept of Pathology [facility], [address] [place] [address], [place] [address] 2Result Comment: Testing Performed By: Dept of Pathology [facility], [address] [place] [address], [place] [address] 3Result Comment: Testing Performed By: Dept of Pathology [facility], [address] [place] [address], [place] [address] 4Result Comment: Testing Performed By: Dept of Pathology [facility], [address] [place] [address], [place] [address] Vital Signs Most recent to oldest [Reference Range]: 1 Temperature [36.5-37.9 DegC] 36.6 DegC (09/06/23 10:36 AM) Heart Rate 74 bpm (09/06/23 10:36 AM) Respiratory Rate 17 br/min (09/06/23 10:36 AM) Blood Pressure 134/78mmHg (09/06/23 10:36 AM) BP Location # 1 Left Arm (09/06/23 10:36 AM) Social History Social History Type Response Tobacco 1 Smoking Status Never smoked cigaret charito Sex Female 1none FCM Outpt Note * MD [place] P: MODIFY MD [place] P: MODIFY Event Display: FCM Outpt Note Authored Date: [id number] Chief Complaint needs refill on oxycodone 5mg and 10mg, refill of levothyroxine. discuss w/c referral. states they need a referral to get fit for one. History of Present Illness Patient is a 68-year-old female who presents to the office for med check. She currently is requesting refill on her levothyroxine as well as her oxycodone. Patient has not been with her oxycodonefor approximately 2 to 3 weeks. She says that the pain is still unbearable and she is only getting about 2 to 3 hours of sleep every night. She has recently seen pain management which did not offer any treatment options and deferred to PCP. Patient has a PT referral in place but declines wanting to do any PT as she has already done this in the hospital. Nurse aide was present for exam today and had concerned about skin breakdown on her inner thigh. No open wounds noted. Patient also complains of dysuria for the past 3 weeks and having troubles with urination. Patient struggles to get to and from commode to urinate and requires assistance at all times with movement. Patient still states that she needs a wheelchair. Let patient know that wheelchair request was already sent in by Dr. Su. Patient has not had any labs since hospitalization due to not being able to get out of the housebut now that she is able to get out of the house she is welcome to having labs done today Review of Systems Negative ROS besides what is stated in the HPI above. Physical Exam Vitals & Measurements T:36.6C HR:74(Monitored) RR:17 BP:134/78 SpO2:94% PHQ2 Data(Data Documented on:09/06/2023 10:32) Emotional health assessment NEGATIVE GEN: Obese, in wheelchair NAD. PSYCH: Good Judgment. AOx3. Normal memory, mood, and affect. CV: RRR without murmurs, rubs, or gallops. LUNGS: Clear to auscultation bilaterally, no rales, rhonchi, or wheezes., Trach in place ABD: Soft, NT/ND, NBS, no masses or organomegaly. SKIN: Warm, well perfused. No skin rashes or abnormal lesions. MSK: Wheelchair-bound, tenderness of the right lower extremity throughout EXT: No clubbing, cyanosis, or edema. Assessment/Plan 1.Ambulatory dysfunction -Patient cannot safely use a walker or cane safely. She is currently in a wheelchair but has trouble with ADLs in her home. We will recommend getting an electric wheelchair to help with ADLs. -Majority of patient's ambulatory issues resolved from her femur fracture of her right femur and overall obesity. We will try to better control pain from right femur fracture as stated below. -Reviewed notes of Ortho, Dr. Su has already sent in a request for a wheelchair for the patient. Recommend patient go to [facility] to berry picker wheelchair. 2.Diastolic heart failure -Not currently fluid overloaded at this time. -Follow-up with cardiology recommended at this time. 3.CKD (chronic kidney disease), stage IV -We will check creatinine and labs today. 4.Femur fracture, right -Patient has seen Ortho and pain management for her right femur fracture. Reviewed notes from Ortho and pain management. -Ortho defers to PCP for pain management. -Pain management also defers to PCP for pain management treatment as they cannot offer her any services at this time. -Patient is currently out of oxycodone and having trouble with sleeping. States that she is in great pain and that the oxycodone is needed every 6 hours. -We will start patient on a fentanyl 12 mcg/h transdermal patch that she is to wear for 72 hours. -Controlled substance agreement filled out in office today and urine drug screen ordered. -We will hold off on oxycodone treatment as this has not been very successful for treating patient's pain. -PT referral has already been placed for patient recommend patient seek out physical therapy to help with pain. 5.Hypothyroid -Patient is on Synthroid 225 mg once a day. Has not had TSH since hospitalization. -We will order TSH and refill meds once TSH results are back given that she still has a month supply left of her medication. 6.Insulin dependent diabetes mellitus -Patient with a continuous insulin pump. -States that it has been mostly controlled. -We will order hemoglobin A1c, CBC, CMP, and urine microalbumin/creatinine ratio at this time. -Patient follows with endocrinology but has not been able to get into appointment due to not being able to get out of her house. Would recommend follow-up with endocrine as soon as possible. 7.Morbid obesity -A lot of patient's issues stem from her morbid obesity. -Bariatric surgery may be a route to consider in the near future though she is a poor candidate forsurgery at this time. 8.Obesity hypoventilation syndrome -On trach requiring oxygen at night. -May be contributing to sleep issues, will assess after pain is well-managed. 9.Dysuria -Patient with dysuria for the past 3 weeks and having trouble with urination. -We will order UA and check CMP. -If positive will prescribe antibiotic for possible UTI as she has a high risk for developing UTI given her ambulatory dysfunction. 10.Skin breakdown -No open wounds seen on physical exam today though there is states there is some skin breakdown on her inner thigh without any open wounds. -We will prescribe ointment for patient to be applied twice a day for skin breakdown. 11.Ovarian cancer -Unable to obtain records from ovarian cancer. States that she had her ovaries out in between -We will try to obtain records. f/u in one month for multiple issues. Thank you for allowing me to participate in this patient's care. Please refer to my attending's attestation for further documentation. Jasper Grey D.O. PGY 2, [facility] Attestation I saw patient and was present for the pappas portions of the history and physical. I agree with theresident's note and plan as documented in the resident's note. She has several complicated medical problems and will need frequent follow up. I am concerned about pain management for her. Consult tang. Jayy San Problem List/Past Medical History Ongoing Ambulatory dysfunction Anemia Anxiety Arthritis Bronchiectasis Chronic back pain Chronic right heart failure CKD (chronic kidney disease), stage IV Coronary artery disease Depression Diabetic neuropathy Diastolic heart failure Distal radius fracture, left Femur fracture, right Glaucoma Hoarding behavior Hyperlipidemia Hypertension Hypothyroid Ingrown toenail of both feet Insulin dependent diabetes mellitus Left knee DJD Left lumbar radiculopathy Migraine Morbid obesity Nocturnal hypoxia Obesity hypoventilation syndrome Ovarian cancer Pain of right great toe Severe persistent asthma Status post tracheostomy Historical Impaired mobility Right foot pain Procedure/Surgical History Echocardiogram (10/02/2022)X-ray (03/25/2022)X-ray (03/25/2022)CAT scan [...] mg oral tablet), See Instructions, 1 refills bacitracin-polymyxin B topical(Polysporin 500 units-10,000 units/g topical ointment), 1 appl, topical, bid, 1 refills buPROPion(buPROPion 100 mg/12 hours (SR) oral tablet, extended release), See Instructions, 1 refills camphor-menthol topical([place]) diclofenac topical(Voltaren 1% topical gel), 2 g, topical, qid, 2 refills docusate(docusate sodium 100 mg oral capsule), 100 mg= 1 cap, PO, bid empagliflozin(Jardiance 25 mg oral tablet), See Instructions fentaNYL(fentaNYL 12 mcg/hr transdermal film, extended release), 1 patch, topical, q72h folic acid(folic acid 1 mg oral tablet), See Instructions, 1 refills furosemide, 10 mg, PO, Daily insulin lispro(HumaLOG Vial 100 units/mL injectable solution), subQ, Daily isosorbide mononitrate(isosorbide mononitrate 60 mg oral tablet, extended release), See Instructions, 3 refills levothyroxine(levothyroxine 200 mcg (0.2 mg) oral [...] 0.4 mg= 1 tab, SL, q5min, PRN pantoprazole(pantoprazole 40 mg oral delayed release tablet), See Instructions, 1 refills potassium chloride(Potassium Chloride (Hof-Epvq-Tss 10) 10 mEq oral tablet, extended release), See Instructions, 1 refills sertraline(sertraline 50 mg oral tablet), 50 mg= 1 tab, PO, Daily, 6 refills spironolactone(spironolactone 25 mg oral tablet), 25 mg= 1 tab, PO, Daily, 3 refills topiramate(topiramate 100 mg oral tablet), See Instructions, 1 refills torsemide(torsemide 20 mg oral tablet), 40 mg= 2 tab, PO, Daily Allergies Elavil (Moderate)Violent behavior Neurontin (Moderate)Violent behavior Duratuss DM (Mild)unknown Glucophage (Mild)Nausea amoxicillin (Mild)Rash doxycycline (Mild)unknown penicillin (Mild)Hives Lyrica"jerks", loss of balance causing fall Social History Smoking Status Never smoked cigarettes Alcohol - Comments: none 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 Home/Environment Lives with:Children Other risks in environment:Pets/Animal [...] Vaccine Date Status influenza virus vaccine, inactivated 08/12/2023 Given influenza virus vaccine, inactivated 11/19/2021 Given SARS-CoV-2 [...] 1year Body Mass Index due02/02/23and every 1year Due Adult COVID-19 Vaccination due09/07/23Unknown Frequency Adult Tdap/Td Vaccine due09/07/23Unknown Frequency Hepatitis C Screening due09/07/23One-time only Medicare Annual Wellness Visit due09/07/23and every 1year Pneumococcal Vaccine Older Adults due09/07/23One-time only Shingles Vaccine due09/07/23One-time only Due In Future Adult Influenza Vaccine not due until05/21/24and every 1year Diabetes Management A1c not due until09/05/24and every 1year Satisfied(in the past 1 year) Satisfied Adult Influenza Vaccine on08/12/23.Satisfied by ADRIÁN Lara Emma Diabetes Management A1c on09/06/23.Satisfied by Contributor_system, [place] Electronic Signature on File Electronically Reviewed/Signed by: Jasper Grey DO Author Signature Dt/Tm:09/07/2023 08:39 PM Resident Department of Family Medicine Electronically Reviewed/Signed by: Enzo San MD Cosigner Signature Dt/Tm: 09/08/2023 12:18PM Department of Family Medicine EB Patient Care team information Care Team Personnel Name: MONISHA Baltazar, Kaylynn Snow Position: Physician - Podiatry Member Role: Lifetime Relationship Address: Address: [address] [place] [address] [place] Name: MD Everardo, Ofe Position: Physician - Family Med Member Role: Primary Care Provider Address: Address: [address] [place] [address] [place] Care Team Related Persons Name: CÉSAR NICOLE Address: [address] [place] [phone]
--- OUTSIDE RECORDS SUMMARY | 2023-10-17 12:18 | External Medical Summary | Summary of Care ---
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 Allergies Active Allergy Reactions Criticality Noted Date [...] Active Commode BedsideIndication s:Chronic right-sided heart failure ([facility]),Chronic diastolic HF (heart failure) ([facility]),HTN, goal below 140/90,Ambulatory dysfunction 1 bedside commode 1 Each 0 05/08/2021 Active Contour Next Test In Vitro Strip (Glucose Blood)Indications :Type 2 diabetes mellitus with hemoglobin A1c goal of less than 8.0% ([facility]) use to test 3 times daily 300 Strip 3 07/13/2021 Active Nitroglycerin 0.4 MG Sublingual Tablet Sublingual (Nitrostat)Indica tions:Coronary artery disease involving 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 30 Tablet 0 09/26/2023 Active Torsemide 20 MG Oral Tablet (Demadex)Indicati ons:Chronic right-sided heart failure (HCC) Take by mouth 1 Tablet in the morning. 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 Authorizing Provider: KRISTEN MARTIN Isosorbide Mononitrate ER 60 MG Oral Table*30 Tab*0 Sig: Take 1 Tablet by mouth in the morning. Authorizing Provider: KRISTEN MARTIN * Telephone Encounter - Alessandra Gallagher [facility] - 09/26/2023 10:21 AM EST Did you pend patient's preferred pharmacy and medication before forwarding?yes Pharmacy: [id number] [facility] Pending Prescriptions: Disp Refills Spironolactone 25 MG Oral Tablet (Aldacto*31 Tab*0 Sig: Take 1 Tablet by mouth in the morning. Isosorbide Mononitrate ER 60 MG Oral Tabl*30 Tab*0 Sig: Take 1 Tablet by mouth in the morning. Last Visit: 01/07/2022 (in office), 05/10/2023 (telemedicine) Next Visit: Visit date not found If no future appointments scheduled, and last appointment is greater than a year ago, please schedule patient for a follow-up appointment Last date the medication was ordered: 06/23/23 Is this request for a controlled substance?No [...] Additional history exists CKD PHOS USE SMARTSET 60382 06/12/202305/22, 04/04/2022, 04/03/2022, Additional history exists CKD HGB USE SMARTSET 67402 07/05/202307/05, 06/12/2022, 06/12/2022, Additional history exists COVID-19 [...] heart failure (HCC) Congestive heart failure, unspecified 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
--- OUTSIDE RECORDS SUMMARY | 2023-10-17 12:19 | External Medical Summary | Continuity of Care Document ---
Author Name Unknown Organization [facility] [address] [facility] [address] [phone] Care Team Providers Care Planimeter Operator Name Role Phone Ofe cMgee Primary Care Physician [phone] Encounter [facility] [id number] Date(s): 06/02/23 - 06/02/23 [facility] [address] [facility] [address] [facility] [address] [facility] [address] [place], [place] [address]Uponp [phone] Encounter Diagnosis Left knee DJD(Discharge Diagnosis) - 06/02/23 Impaired mobility(Discharge Diagnosis) - 06/02/23 Morbid obesity(Discharge Diagnosis) - 06/02/23 CKD (chronic kidney disease), stage IV(Discharge Diagnosis) - 06/02/23 Ambulatory dysfunction(Discharge Diagnosis) - 06/02/23 Obesity hypoventilation syndrome(Discharge Diagnosis) - 06/02/23 Femur fracture(Discharge Diagnosis) - 06/02/23 Anxiety(Discharge Diagnosis) - 06/02/23 Depression(Discharge Diagnosis) - 06/02/23 Hypertension(Discharge Diagnosis) - 06/02/23 Status post tracheostomy(Discharge Diagnosis) - 06/02/23 Hyperlipidemia(Discharge Diagnosis) - 06/02/23 Hypothyroid(Discharge Diagnosis) - 06/03/23 Left lumbar radiculopathy(Discharge Diagnosis) - 06/03/23 Discharge Disposition: Home or Self Care Attending Physician: DO Strauss Gretchen Elizabeth Referring Physician: MD Mcgee Madhavi Allergies, Adverse [...] g, Refills: 1, 8 unknown unit, Pharmacy: [id number] Start Date: 06/02/23 Status: Ordered aspirin 81 mg oral delayed release tablet Start: 05/20/21 10:40:00 EDT, 81 Unknown, Oral, 1 Refill(s) Start Date: 05/20/21 Status: Ordered atorvastatin 40 mg oral tablet Start: 06/02/23 13:33:00 EDT, 1 tab, PO, Daily, Disp# 30 tab, Refills: 3, Pharmacy: [id number] Start Date: 06/02/23 Stop Date: 09/30/23 Status: Ordered azithromycin 250 mg oral tablet Start: 06/02/23 13:29:00 EDT, See Instructions, Disp# 30 tab, Refills: 1, 1 tab PO Tuesday, Tuesday and Tuesday, Pharmacy: [id number] Start Date: 06/02/23 Status: Ordered buPROPion 100 mg/12 hours (SR) oral tablet, extended release Start: 06/02/23 13:30:00 EDT, See Instructions, Disp# 90 tab, Refills: 1, take 1 tablet by mouth inthe morning and 2 tablets in the evening, Pharmacy: [id number] Start Date: 06/02/23 Status: Ordered Combivent Respimat 20 mcg-100 mcg/inh inhalation aerosol Start: 06/02/23 13:28:00 EDT, 1 puff, inhaled, q4h, Disp# 1 each, Refills: 2, Pharmacy: [id number] Start Date: 06/02/23 Status: Ordered docusate sodium 100 mg oral capsule Start: 05/20/21 10:40:00 EDT, 100 Unknown, Oral, 1 Refill(s) Start Date: 05/20/21 Status: Ordered folic acid 1 mg oral tablet Start: 06/02/23 13:31:00 EDT, See Instructions, Disp# 30 tab, Refills: 1, TAKE 1 TABLET BY MOUTH ONCE DAILY, Pharmacy: [id number] Start Date: 06/02/23 Status: Ordered furosemide Start: 05/26/21 9:59:00 EDT, 10 mg =, PO, Daily Start Date: 05/26/21 Status: Ordered HumaLOG Vial 100 units/mL injectable solution Start: 01/15/20 13:18:00 EST, unit =, subQ, Daily, Per pump Start Date: 01/15/20 Status: Ordered isosorbide mononitrate 60 mg oral tablet, extended release See Instructions, Disp# 30 tab, Refills: 0, TAKE ONE TABLET BY MOUTH EVERY MORNING , [id number] Start Date: 01/04/21 Status: Ordered Jardiance 25 mg oral tablet See Instructions, Disp# 30 tab, Refills: 5, TAKE ONE TABLET BY MOUTH EVERY MORNING , [facility] Start Date: 11/02/21 Status: Ordered levothyroxine 200 mcg (0.2 mg) oral tablet Start: 06/02/23 13:34:00 EDT, 1 tab, PO, Daily, Disp# 30 tab, Refills: 1, Pharmacy: [id number] Start Date: 06/02/23 Stop Date: 08/01/23 Status: Ordered loratadine 10 mg oral tablet Start: 05/20/21 10:40:00 EDT, 10 Unknown, Oral, 1 Refill(s) Start Date: 05/20/21 Status: Ordered metOLazone 2.5 mg oral tablet Start: 03/03/21 10:07:00 EDT Start Date: 03/03/21 Status: Ordered Metoprolol Tartrate 25 mg oral tablet Start: 06/02/23 13:35:00 EDT, See Instructions, Disp# 60 tab, Refills: 1, TAKE 1 TABLET BY MOUTH TWICE DAILY, Pharmacy: [facility] Start Date: 06/02/23 Status: Ordered montelukast 10 mg oral tablet Start: 06/02/23 13:35:00 EDT, See Instructions, Disp# 30 tab, Refills: 11, TAKE 1 TABLET BY MOUTH EVERY EVENING, Pharmacy: [id number] Start Date: 06/02/23 Status: Ordered nitroglycerin 0.4 mg sublingual tablet Start: 05/07/21 10:58:00 EDT, 1 tab, SL, q5min, Disp# 25 tab, PRN: as needed for chest pain Start Date: 05/07/21 Status: Ordered pantoprazole 40 mg oral delayed release tablet Start: 06/02/23 13:35:00 EDT, See Instructions, Disp# 30 tab, Refills: 1, TAKE 1 TABLET BY MOUTH ONCE DAILY, Pharmacy: [id number] Start Date: 06/02/23 Status: Ordered Potassium Chloride (Yof-Epjh-Wjg 10) 10 mEq oral tablet, extended release Start: 06/02/23 13:35:00 EDT, See Instructions, Disp# 60 tab, Refills: 1, TAKE 1 TABLET BY MOUTH TWICE DAILY, Pharmacy: [facility] Start Date: 06/02/23 Status: Ordered Salonpas Maximum Strength 4% topical film Start: 09/10/20 10:40:00 EDT, See Instructions, Disp# 30 film, Refills: 3, do not leave patch on for more than 8 hours at a time, Pharmacy: [facility] Start Date: 09/10/20 Status: Ordered spironolactone 25 mg oral tablet Start: 05/07/21 10:58:00 EDT, 1 tab, PO, Daily Start Date: 05/07/21 Status: Ordered topiramate 100 mg oral tablet Start: 06/02/23 13:32:00 EDT, See Instructions, Disp# 90 tab, Refills: 1, TAKE ONE TABLET BY MOUTH EVERY MORNING AND TWO TABLETS AT BEDTIME., Pharmacy: [id number] Start Date: 06/02/23 Status: Ordered torsemide 20 mg oral tablet Start: 01/15/20 13:17:00 EST, 2 tab, PO, Daily Start Date: 01/15/20 Status: Ordered Voltaren 1% topical gel Start: 06/02/23 13:30:00 EDT, 2 g =, topical, qid, Disp# 100 g, Refills: 2, not to exceed 16 grams/day/single joint of lower extremities, Pharmacy: [id number] Start Date: 06/02/23 Stop Date: 08/31/23 Status: Ordered Mental Status 06/02/23 Barriers to Learning one year None evide nt Mandatory Health Literacy Documentation Yes Health Literacy Communication Barriers N ever Primary Language Russian Problem List Condition Confirmation Course Effective Dates [...] Active Status post tracheostomy 3 Confirmed Active Hyperlipidemia Confirmed Active Hypertension Confirmed [...] 5L oxygen at night. 5Steve Malin - [facility] pulmonary Diagnosis Diagnosis Type Effective Dates Health Status Clinical Service Informant Obesity hypoventilation syndrome Discharge Diagnosis 06/02/23 Left knee DJD Discharge Diagnosis 06/02/23 Non-Specified Ambulatory dysfunction Discharge Diagnosis 06/02/23 Impaired mobility Discharge Diagnosis 06/02/23 Morbid obesity Discharge Diagnosis 06/02/23 CKD (chronic kidney disease), stage IV Discharge Diagnosis 06/02/23 Depression Discharge Diagnosis 06/02/23 Hyperlipidemia Discharge Diagnosis 06/02/23 Anxiety Discharge Diagnosis 06/02/23 Hypertension Discharge Diagnosis 06/02/23 Status post tracheostomy Discharge Diagnosis 06/02/23 Femur fracture Discharge Diagnosis 06/02/23 Non-Specified Hypothyroid Discharge Diagnosis 06/03/23 Left lumbar radiculopathy Discharge Diagnosis 06/03/23 Procedures Procedure Date Related Diagnosis Body Site [...] and an infectious/inflammatory process cannot be excluded. [id number] 25stg 4 ovarian cancer Social History Social History Type Response Tobacco 1 Smoking Status Never smoked cigaret charito Sex Female 1none Patient Care team information Care Team Personnel Name: MONISHA Baltazar, Kaylynn Snow Position: Physician - Podiatry Member Role: Lifetime Relationship Address: Address: [facility] [address] [place] [address] [place] Name: MD Mcgee Madhavi Position: Physician - Family Med Member Role: Primary Care Provider Address: Address: [address] [facility] [address] [place] [address] [place] Care Team Related Persons Name: CÉSAR NICOLE Address: home [address] [place] [address] [place] [phone]
--- OUTSIDE RECORDS SUMMARY | 2023-10-17 12:19 | External Medical Summary | Summary of Care ---
Author Name Unknown Organization [facility] Address [address] [facility] [place] [address] Phone [phone] Care Team Providers Care Plumber And Tinner Name Role Phone Ofe Mcgee MD Primary Care Provider [phone] Reason for Visit * Reason Comments eRx-Medication Refill Encounter Details Date Type Department Care Team Description 06/21/2023 Refill Cardiology, [facility] [address] [place] [address] Kristen Martin, [address] [place] [address] Coronary artery disease involving [place] coronary artery of [place] heart without angina pectoris; Chronic right-sided heart failure (HCC) Allergies Active Allergy Reactions Severity Noted Date Comments Amoxicillin 04/27/2002 Dextromethorphan-Guaifenesin 010 Doxycycline 04/27/2002 Amitriptyline Hcl 08/10/2010 Gabapentin 09/01/2006 Other reaction(s): Physical aggression (finding) Metformin Hydrochloride 08/06/2010 Gabapentin 08/10/2010 Getting violent Penicillins Hives 04/26/2008 documented as of this encounter (statuses as of 06/23/2023) Medications Medication Sig Dispensed Refills Start Date End Date Status TYLENOL EXTRA STRENGTH 500 MG PO TABS Take 2 Tablets by mouth in the morning and 2 Tablets before bedtime. 0 Active MULTIVITAMINS PO TABSIndications:M orbid obesity, BMI not known (HCC) Take one by mouth once daily. 35 11 8 Active ASPIRIN EC 81 MG PO TBECIndications:C hest pain 1 TABLET DAILY 30 Tab 3 0 Active NEBULIZER MISCIndications:C OPD, severity to be determined (HCC),Attention to tracheostomy (HCC) tubing for use of nebulizer for a patient with tracheostomy 1 Units 0 2 Active NEBULIZER DEVIIndications:C OPD, severity to be determined (HCC),Attention to tracheostomy (HCC) for use with albuterol for wheezing. use every 4 hours as needed for wheezing. include tracheostomy masks 1 Device 0 2 Active SPACER/AERO-HOLDI NG CHAMBERS DEVIIndications:C OPD, severity to be determined (HCC) use with inhaler 1 Device 0 4 Active OXYGENIndications :COPD, severity to be determined (HCC),Nocturnal hypoxemia 5 L/min(Oxygen) at bedtime . Via Trach. 1 Each 0 4 Active montelukast (SINGULAIR) 10 MG Tablet Take by mouth 10 mg at bedtime . 0 5 Active albuterol-ipratro pium (DUONEB) 2.5-0.5 MG/3ML nebulizer solution 3 ML 4 times daily for increased coughing, wheezing, or shortness of breath 180 Vial 3 5 Active ONETOUCH ULTRASOFT LANCETS MISC Use up to 6 times a day as directed, Dx: E11.9 1 Box Dosing Unit 11 9 Active metoprolol tartrate (LOPRESSOR) 25 MG Tablet take 1/2 tablet by mouth twice a day 30 Tab 5 9 Active buPROPion extended release, SR, (WELLBUTRIN SR) 100 MG TB12 take 3 tablet by mouth daily 90 Tab 3 9 Active folic acid 1 MG Tablet TAKE 1 TABLET BY MOUTH ONCE DAILY 30 Tab 0 0 Active topiramate (TOPAMAX) 100 MG TabletIndications :Migraine with aura and without status migrainosus, not intractable TAKE 1 TABLET BY MOUTH EVERY MORNING AND 2 TABLETS AT BEDTIME 90 Tab 5 0 Active COMBIVENT RESPIMAT 20-100 MCG/ACT InhalerIndication s:COPD, severity to be determined (HCC) INHALE ONE PUFF BY MOUTH FOUR TIMES DAILY 12 g 0 0 Active pantoprazole (PROTONIX) 40 MG TBECIndications:G astroesophageal reflux disease, esophagitis presence not specified TAKE 1 TABLET BY MOUTH ONCE DAILY 90 Tab 0 0 Active levothyroxine (LEVOXYL) 200 MCG Tablet Take by mouth 200 mcg daily first thing in the morning . 0 0 Active atorvaSTATin (LIPITOR) 40 MG Tablet Take by mouth 40 mg daily . 0 0 Active Lisinopril 2.5 MG Oral Tablet (Prinivil) Take 1 Tab by mouth daily. 0 1 Active Commode BedsideIndication s:Chronic right-sided heart failure (HCC),Chronic diastolic HF (heart failure) ([facility]),HTN, goal below 140/90,Ambulatory dysfunction 1 bedside commode 1 Each 0 1 Active Contour Next Test In Vitro Strip (Glucose Blood)Indications :Type 2 diabetes mellitus with hemoglobin A1c goal of less than 8.0% ([facility]) use to test 3 times daily 300 Strip 3 1 Active Nitroglycerin 0.4 MG Sublingual Tablet Sublingual (Nitrostat)Indica tions:Coronary artery disease involving [place] coronary artery of [place] heart without angina pectoris DISSOLVE 1 TABLET under tongue every 5 minutes if needed for chest pain; up to 3 doses in 15 minutes 100 Tablet 3 2 Active Insulin Aspart 100 UNIT/ML Subcutaneous Solution Sliding scale with meals: Glucose 151-200 (3 units insulin), glucose 201-250 (6 units insulin), glucose 251-300 (9 units insulin), Glucose greater than 300 (12 units insulin). Do not exceed 36 units daily. 10 mL 6 2 Active Insulin Aspart 100 UNIT/ML Subcutaneous Solution Insulin carb coverage: 1 unit insulin for every 4 carbs 10 mL 6 2 Active Albuterol Sulfate (2.5 MG/3ML) 0.083% Inhalation Nebulization Solution (Proventil) Inhale via nebulizer 1 Vial every 4 hours as needed for Wheezing or Shortness of Breath. 360 mL 11 2 Active Torsemide 20 MG Oral Tablet (Demadex)Indicati ons:Chronic right-sided heart failure (HCC) Take by mouth 1 Tablet in the morning. 180 Tablet 3 2 Active Torsemide 10 MG Oral Tablet (Demadex) Take by mouth 1 Tablet every afternoon . 60 Tablet 5 2 Active Vitamin B-12 1000 MCG Oral Tablet Take by mouth 1 Tablet in the morning. 30 Tablet 0 2 Active Insulin Glargine 100 UNIT/ML Subcutaneous Solution (Lantus) Inject under the skin 54 Units in the morning AND 54 Units before bedtime. 1 Each 12 2 Active linaGLIPtin 5 MG Oral Tablet (Tradjenta) Take by mouth 1 Tablet in the morning. 30 Tablet 0 2 Active Additional Information Patient not taking.Reported on 05/10/2023 Menthol-Zinc Oxide 0.44-20.6 % External Ointment (Calmoseptine) Apply topically to affected area as needed for Other (After bowel movements and cleaning). 71 g 2 2 Active Polyethylene Glycol 3350 17 GM Oral Packet (Miralax) Take by mouth 1 Packet daily as needed for Constipation. 14 Each 0 2 Active Sennosides-Docusa te Sodium 8.6-50 MG Oral Tablet (Senokot-S) Take by mouth 2 Tablets in the morning. 60 Tablet 0 2 Active Empagliflozin 10 MG Oral Tablet (Jardiance) Take 1 Tablet by mouth in the morning. 0 Active Isosorbide Mononitrate ER 60 MG Oral Tablet Extended Release 24 Hour (Imdur)Indication s:Coronary artery disease involving [place] coronary artery of [place] heart without angina pectoris TAKE 1 TABLET BY MOUTH ONCE DAILY 30 Tablet 0 3 Active Spironolactone 25 MG Oral Tablet (Aldactone)Indica tions:Chronic right-sided heart failure (HCC) TAKE 1 TABLET BY MOUTH ONCE DAILY 31 Tablet 0 3 Active Sertraline HCl 50 MG Oral Tablet (Zoloft)Indicatio ns:Coronary artery disease involving [place] coronary artery of [place] heart without angina pectoris,Chronic right-sided heart failure (HCC) TAKE 1 TABLET BY MOUTH EVERY MORNING 30 Tablet 0 3 Active Spironolactone 25 MG Oral Tablet (Aldactone)Indica tions:Chronic right-sided heart failure (HCC) TAKE 1 TABLET BY MOUTH ONCE DAILY 31 Tab 11 1 06/23/20 23 Discontinued Isosorbide Mononitrate ER 60 MG Oral Tablet Extended Release 24 Hour (Imdur)Indication s:Coronary artery disease involving [place] coronary artery of [place] heart without angina pectoris TAKE 1 TABLET BY MOUTH ONCE DAILY 30 Tablet 11 2 06/23/20 23 Discontinued documented as of this encounter (statuses as of 06/23/2023) Active Problems Problem Noted Date Nocturnal hypoxia 05/04/2022 Overview: Wears 5L at home. 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 Tracheostomy status 09/25/2015 Hypoventilation associated with obesity syndrome 09/25/2015 Coronary artery disease 03/28/2014 Dyslipidemia, goal LDL below 70 12/08/19 12 ATTEN TO TRACHEOSTOMY (7.0 S hiley XLT cuffed proximally extended tracheostomy tube) 03/01/2008 Acquired hypothyroidism 02/17/2008 COPD, severity to be determined 02/13/20 08 Difficult intubation 02/12/2008 documented as of this encounter (statuses as of 06/23/2023) Resolved Problems Problem Noted Date Resolved Date Laceration of toe 03/28/2022 05/04/2022 Overview: Rt second toe Cellulitis of lower extremity 03/28/2022 Overview: Bilateral medial thigh region cellulitis was original reason for admission at OSH, she had a course of daptomycin there. Anemia 03/28/2022 05/04/2022 Body mass index (BMI) of 60.0 to 69.9 in adult 0 12/29/2020 05/04/2022 Overview: Per Obesity protocol - Per Obesity protocol - Body mass index (BMI) of 50.0 to 59.9 in adult 0 07/30/2019 01/01/2021 Overview: Per Obesity protocol - Body mass index (BMI) of 60.0 to 69.9 in adult 0 04/11/2018 08/03/2019 Overview: Per Obesity protocol #1 Body mass index (BMI) greater than or equal to 7 0 in adult 08/22/2017 04/13/2018 Overview: Per Obesity protocol #1 Bronchiectasis 09/25/2015 05/04/2022 Tracheobronchitis 09/25/2015 05/04/2022 Type 2 diabetes mellitus wit h hemoglobin A1c goal of less than 8.5% 03/28/2014 06/09/2018 Kidney disease, chronic, stage III (GFR 30-59 ml /min) 01/14/2014 01/01/2021 Overview: Per CKD protocol #1 No diabetic retinopathy in both eyes 05/10/2013 05/04/2022 Chest pain 03/21/2013 08/23/2013 Impaired physical mobility 12/27/201203/28 Obesity, morbid (more than 1 00 lbs over ideal weight or BMI > 40) 11/27/2012 08/23/2013 Hemoptysis 10/04/2012 05/04/2022 HTN, GOAL BELOW 140/80 07/10/2012 6 Overview: Per HTN Protocol #27. Patient is full code 03/20/2012 05/04/2022 High triglycerides 12/08/2011 05/04/2022 Migraine with aura 04/12/2011 05/04/2022 Adult body mass index 60.0-69.9 10/06/2010 07/05/2017 Obesity, morbid (more than 1 00 lbs over ideal weight or BMI > 40) 02/17/2010 10/06/2010 Overview: Per Obesity Taxonomy ICD-10 update of inactive term HTN, GOAL BELOW 130/80 12/17/2009 2 Overview: Per HTN Taxonomy. Type 2 diabetes mellitus wit h hemoglobin A1c goal of less than 7.0% 09/04/2009 09/19/2010 DM type 2, not at goal 05/09/2008 9 Overview: Modified per Diabetes protocol #14. Hypersomnia with sleep apnea 05/09/2008 ATTEN TO TRACHEOSTOMY #5 Christophe metal trach tub e 04/26/2008 05/04/2022 Overview: Maintaining b/o obstructive sleep apnea Vomiting 03/05/2008 12/27/2012 Overview: ICD-10 update of inactive term Constipation 02/16/2008 05/04/2022 Anxiety state 02/14/2008 05/04/2022 Pneumonia due to organism 02/13/20082012 Overview: ICD-10 update of inactive term Respiratory failure, acute 02/13/200806/09 Morbid obesity, BMI not known 02/13/2008 Overview: Per Obesity Taxonomy HTN, goal below 140/90 02/13/2008 0 Overview: Per HTN Taxonomy. Cardiac arrest 02/13/2008 09/28/2017 Respiratory arrest 02/13/2008 08/23/2013 Hyposmolality 02/13/2008 12/27/2012 Hypotension 02/12/2008 03/26/2014 Diabetic retinopathy 12/29/2017 Overview: right eye PRP by Dr. Waite in 01/2017, Left Eye 02/17/17. Severe non-proliferative OU. documented as of this encounter (statuses as of 06/23/2023) Immunizations Name Administration Dates Next Due COVID-19, LNP-s, No Preserve , Tello-sucrose, Ages 12+ (Pfizer) 06/08/2022 Pneumococcal Conjugate Vacc, 13 Valent (Prevnar) 04/29/2015 Pneumococcal Polysaccharide PPV23 (Pneumovax) 09/27/2016 Seasonal Influenza, Quadriva lent, No Preserve, 6 Mons & Above, IM 08/22/2019,09/12/2018,08/23/2017 Seasonal Influenza, Quadriva lent, No Preserve, IM 09/27/2016 Seasonal Influenza, Split, I IV3, With Preserve, Inj 08/26/2015,08/15/2014,08/23/2013,08/04,08/27/2011,08/28/2010 TDAP (age 11 and older)(Adacel) 07/29/2011 documented as of this encounter Social History Tobacco Use Types Packs/Day Years Used Date Smoking Tobacco: Never Smokeless Tobacco: Never Alcohol Use Standard Drinks/Week Comments No 0 (1 standard drink = 0.6 oz pur e alcohol) Food Insecurity Answer Date Recorded Within the past 12 months, y ou worried that your food would run out before you got money to buy more. Never true 07/13/2019 Within the past 12 months, t he food you bought just didn't last and you didn't have money to get more. Never true 07/13/2019 Sex Assigned at Date Recorded Female 04/13/2019 12:54 PM EDT Job Start Date Occupation Industry Not on file Not on file Not on file documented as of this encounter Miscellaneous Notes * Telephone Encounter - Kristen [place] DO - 06/23/2023 10:47 AM EDTSigned Prescriptions: Disp Refills Isosorbide Mononitrate ER 60 MG Oral Table*30 Tab*0 Sig: TAKE 1 TABLET BY MOUTH ONCE DAILY Authorizing Provider: KRISTEN MARTIN Spironolactone 25 MG Oral Tablet ([place]*31 Tab*0 Sig: TAKE 1 TABLET BY MOUTH ONCE DAILY Authorizing Provider: KRISTEN MARTIN Sertraline HCl 50 MG Oral Tablet (Zoloft) 30 Tab*0 Sig: TAKE 1 TABLET BY MOUTH EVERY MORNING Authorizing Provider: KRISTEN MARTIN * Telephone Encounter - [place] [facility] - 06/21/2023 3:44 PM EDTPending Prescriptions: Disp Refills Isosorbide Mononitrate ER 60 MG Oral Table*30 Tab*0 Sig: TAKE 1 TABLET BY MOUTH ONCE DAILY Spironolactone 25 MG Oral Tablet [Pharmacy*31 Tab*0 Sig: TAKE 1 TABLET BY MOUTH ONCE DAILY Sertraline HCl 50 MG Oral Tablet [Pharmacy*30 Tab*0 Sig: TAKE 1 TABLET BY MOUTH EVERY MORNING * Telephone Encounter - [place] [facility] - 06/21/2023 3:42 PM EDT Did you pend patient's preferred pharmacy and medication before forwarding?yes Pharmacy: [id number] Pending Prescriptions: Disp Refills Isosorbide Mononitrate ER 60 MG Oral Tabl*30 Tab*0 Sig: TAKE 1 TABLET BY MOUTH ONCE DAILY Spironolactone 25 MG Oral Tablet (Aldacto*31 Tab*0 Sig: TAKE 1 TABLET BY MOUTH ONCE DAILY Sertraline HCl 50 MG Oral Tablet (Zoloft)*30 Tab*0 Sig: TAKE 1 TABLET BY MOUTH EVERY MORNING Last Visit: 01/07/2022 (in office), 05/10/2023 (telemedicine) Next Visit: Visit date not found If no future appointments scheduled, and last appointment is greater than a year ago, please schedule patient for a follow-up appointment Last date the medication was ordered: Is this request for a controlled substance?No Urine Drug Screen: Results for orders placed or performed during the hospital encounter of 03/27/22 TOXICOLOGY, URINESCREEN W/ CONFIRMATION Result Value Amphetamine Negative Benzodiazepines [...] Alpha-1 Antitrypsin 1974 Hepatitis C Screening 1974 Colonoscopy 2001 Fecal Occult Blood Test 2001 Sigmoidoscopy 2001 Zoster Vaccines (1 of 2) 2006 Albumin/Creatinine Ratio 12/16/2018 018, 10/06/2016, 06/10/2014, Additional history exists Depression Screening, Annual for Pts 12 and Over 07/13/2020 07/13/2019 DTaP,Tdap,and Td Vaccines (2 - Td or Tdap) 07/29/2021 07/29/2011, 07/29/2011 Pneumococcal Vaccine: 65+ Years (3 - PPSV23 or PCV20) 09/27/2021 09/27/2016, 04/29/2015 Mammogram 10/14/2021 10/14/2020, 03/2020, 09/24/2019, Additional history exists Cologuard 07/04/2022 07/04/2019, 05/09/2019 Colorectal Cancer Screening 07/04/2022 HbA1c 09/28/2022 03/28/2022, 06/22, 03/27/2019, Additional history exists GFR 01/05/2023 07/05/2022, 080 06/2022, 06/21/2022, Additional history exists TSH 04/25/2023 04/25/2022, 02/2019, 07/13/2019, Additional history exists CKD PHOS USE SMARTSET 70589 06/12/202305/22, 04/04/2022, 04/03/2022, Additional history exists CKD HGB USE SMARTSET 56703 07/05/202307/05, 06/12/2022, 06/12/2022, Additional history exists O2 ASSESSMENT COMPLETED IN PAST YEAR FOR COPD 07/06/2023 07/06/2022 Influenza Vaccine (FLU shot) (#1) 2023 11/19/2021, 08/22/2019, 09/12/2018, Additional history exists *COPD SEVERITY VERIFIED BY PFT Addressed 12/29/2017 (Declined) Overridden with th e intention of not completing the topic COVID-19 Vaccine Completed 06/08/2022, , 03/05/2021, Additional history exists GARDASIL-HPV IMMUNIZATION SERIES Aged Out No longer eligible based on patient's age to complete this topic Hepatitis B Aged Out No longer eligi ble based on patient's age to complete this topic MENINGOCOCCAL (MENACTRA/MENVEO) Aged Out No longer eligible based on patient's age to complete this topic documented as of this encounter Medical Devices Not on filedocumented as of this encounter Visit Diagnoses Diagnosis Coronary artery disease involving [place] coronary artery of [place] heart without angina pectoris Chronic right-sided heart failure (HCC) Congestive heart [...] 1:48 AM 03/06/2008 9:34 PM Care Teams [employer] Relationship Specialty Start Date End Date Ofe Mcgee MD [address] [place] [address] PCP - General Family Medicine 06/02/20 documented as of this encounter
--- OUTSIDE RECORDS SUMMARY | 2023-10-17 12:19 | External Medical Summary | Continuity of Care Document ---
Author Name Unknown Organization [address] Address [address] [place] [address] [place], [place] [id number] Care Team Providers Care Cream Dumper Name Role Phone Ofe Mcgee Primary Care Physician [phone] Encounter [facility] [id number] Date(s): 05/09/23 - 05/09/[address] [facility] [address] [facility], [address] [place] [address] [phone] Encounter Diagnosis Nocturnal hypoxia(Discharge Diagnosis) - 05/09/23 Complex care coordination(Discharge Diagnosis) - 05/09/23 Discharge Disposition: Home or Self Care Attending [...] fall Active Assessment and Plan Extracted from: Title:TeleHealth Visit Note Author:MD Johnny, Rya n Date:05/09/23 1.Nocturnal hypoxia Chronic problem,Stable, Goal -Resolution of symptoms *Multifactorial between likely RASHAAD, OHS, asthma, HFpEF, CKD4 * Unable to perform physical exam today given telephone platform, but reports that no new symptoms suggesting hypervolemia/PNA/asthma exacerbation * Continue home O2 @ 5L per night via Trachand PRN during the day to maintain O2 saturations >92% 2.Complex care coordination Acute problem,Unstable, Goal -Resolution of symptoms * Multiple specialists, DME requirements, inability to leave home - appreciate CM input for aid in community resources. She is also wondering how to get another bedside commode given her current one feels unstable. * Recommended calling [facility] re: getting her commode repaired. Otherwise, we can attempt writing another script for bedside commode and sending it in * If unable to leave house by next visit, recommend setting up appointments with Cardiology/Nephrology by TeleHealth Dispo: Patient is in agreement with the assessment and plan.RTC in1mo viaTeleHealth greg person or sooner for acute concerns. Ms. Jackson would benefit from being followed by a single provider given her medical complexity and needs. She will f/u with Dr. Grey in 1 month. Immunizations Given and Recorded Vaccine Date Status [...] (Eqv-ProAir HFA) 90 mcg/inh inhalation aerosol Start: 02/25/22 14:24:00 EDT, 2 puff, inhaled, q6h, Disp# 6.7 g, 8 unknown unit, Pharmacy: [id number] Start Date: 02/25/22 Status: Ordered albuterol 0.083% for nebulization Start: 05/26/21 10:00:00 EDT Start Date: 05/26/21 Status: Ordered aspirin 81 mg oral delayed release tablet Start: 05/20/21 10:40:00 EDT, 81 Unknown, Oral, 1 Refill(s) Start Date: 05/20/21 Status: Ordered atorvastatin 40 mg oral tablet Start: 05/07/21 10:58:00 EDT, 1 tab, PO, Daily Start Date: 05/07/21 Status: Ordered azithromycin 250 mg oral tablet Start: 05/07/21 10:58:00 EDT, 1 tab, PO, Tuesday, Tuesday and Tuesday Start Date: 05/07/21 Status: Ordered buPROPion 100 mg/12 hours (SR) oral tablet, extended release Start: 05/10/23 10:42:00 EDT, See Instructions, Disp# 90 tab, Refills: 3, take 1 tablet by mouth inthe morning and 2 tablets in the evening, Pharmacy: [id number] Start Date: 05/10/23 Status: Ordered Combivent Respimat 20 mcg-100 mcg/inh inhalation aerosol Start: 02/25/22 14:24:00 EDT, 1 puff, inhaled, q4h, Disp# 1 each, Refills: 2, Pharmacy: [id number] Start Date: 02/25/22 Status: Ordered docusate sodium 100 mg oral capsule Start: 05/20/21 10:40:00 EDT, 100 Unknown, Oral, 1 Refill(s) Start Date: 05/20/21 Status: Ordered fluconazole 100 mg oral tablet Start: 06/15/21 18:04:00 EDT, 1 tab, PO, Daily Start Date: 06/15/21 Status: Ordered folic acid 1 mg oral tablet See Instructions, Disp# 30 tab, Refills: 5, TAKE 1 TABLET BY MOUTH ONCE DAILY, Pharmacy: [id number] Start Date: 12/28/21 Status: Ordered folic acid 1 mg oral tablet See Instructions, Disp# 30 tab, Refills: 5, TAKE 1 TABLET BY MOUTH ONCE DAILY, Pharmacy: [id number] Start Date: 12/28/21 Status: Ordered furosemide Start: 05/26/21 9:59:00 EDT, 10 mg =, PO, Daily Start Date: 05/26/21 Status: Ordered HumaLOG Vial 100 units/mL injectable solution Start: 01/15/20 13:18:00 EST, unit =, subQ, Daily, Per pump Start Date: 01/15/20 Status: Ordered isosorbide mononitrate 60 mg oral tablet, extended release See Instructions, Disp# 30 tab, Refills: 0, TAKE ONE TABLET BY MOUTH EVERY MORNING , Pharmacy: [id number] Start Date: 01/04/21 Status: Ordered Jardiance 25 mg oral tablet See Instructions, Disp# 30 tab, Refills: 5, TAKE ONE TABLET BY MOUTH EVERY MORNING , Pharmacy: [id number] Start Date: 11/02/21 Status: Ordered Levaquin 500 mg oral tablet Start: 02/25/22 14:20:00 EDT, 1 tab, PO, Daily, Disp# 10 tab, Pharmacy: [id number] Start Date: 02/25/22 Stop Date: 03/07/22 Status: Ordered levothyroxine 200 mcg (0.2 mg) oral tablet Start: 05/07/21 10:58:00 EDT, 1 tab, PO, Daily Start Date: 05/07/21 Status: Ordered lisinopril 2.5 mg oral tablet See Instructions, Disp# 30 tab, Refills: 3, TAKE 1 TABLET BY MOUTH ONCE DAILY, Pharmacy: [id number] Start Date: 01/11/22 Status: Ordered loratadine 10 mg oral tablet Start: 05/20/21 10:40:00 EDT, 10 Unknown, Oral, 1 Refill(s) Start Date: 05/20/21 Status: Ordered Lyrica 50 mg oral capsule Start: 10/08/21 11:19:00 EST, 1 cap, PO, tid, Disp# 90 cap, Refills: 2, Pharmacy: [id number] Start Date: 10/08/21 Stop Date: 01/06/22 Status: Ordered metOLazone 2.5 mg oral tablet Start: 03/03/21 10:07:00 EDT Start Date: 03/03/21 Status: Ordered Metoprolol Tartrate 25 mg oral tablet See Instructions, Disp# 60 tab, Refills: 5, TAKE 1 TABLET BY MOUTH TWICE DAILY, Pharmacy: [id number] Start Date: 12/28/21 Status: Ordered montelukast 10 mg oral tablet See Instructions, Disp# 30 tab, Refills: 11, TAKE 1 TABLET BY MOUTH EVERY EVENING, Pharmacy: [id number] Start Date: 01/27/22 Status: Ordered nitroglycerin 0.4 mg sublingual tablet Start: 05/07/21 10:58:00 EDT, 1 tab, SL, q5min, Disp# 25 tab, PRN: as needed for chest pain Start Date: 05/07/21 Status: Ordered pantoprazole 40 mg oral delayed release tablet See Instructions, Disp# 30 tab, Refills: 5, TAKE 1 TABLET BY MOUTH ONCE DAILY, Pharmacy: [facility] Start Date: 12/28/21 Status: Ordered Potassium Chloride (Huv-Dfhz-Nlm 10) 10 mEq oral tablet, extended release See Instructions, Disp# 60 tab, Refills: 3, TAKE 1 TABLET BY MOUTH TWICE DAILY, Pharmacy: [id number] Start Date: 01/11/22 Status: Ordered predniSONE 10 mg oral tablet Start: 02/25/22 14:20:00 EDT, See Instructions, Disp# 28 tab, Take four tabs daily (40mg) for four days, then two tabs daily (20mg) for four days, then one tab daily (10mg) for four days, Pharmacy: [id number] Start Date: 02/25/22 Status: Ordered Salonpas Maximum Strength 4% topical film Start: 09/10/20 10:40:00 EDT, See Instructions, Disp# 30 film, Refills: 3, do not leave patch on for more than 8 hours at a time, Pharmacy: [id number] Start Date: 09/10/20 Status: Ordered spironolactone 25 mg oral tablet Start: 05/07/21 10:58:00 EDT, 1 tab, PO, Daily Start Date: 05/07/21 Status: Ordered topiramate 100 mg oral tablet See Instructions, Disp# 90 tab, Refills: 5, TAKE ONE TABLET BY MOUTH EVERY MORNING AND TWO TABLETS AT BEDTIME., Pharmacy: [id number] Start Date: 12/28/21 Status: Ordered torsemide 20 mg oral tablet Start: 01/15/20 13:17:00 EST, 2 tab, PO, Daily Start Date: 01/15/20 Status: Ordered Voltaren 1% topical gel Start: 03/11/21 10:19:00 EDT, 2 g =, topical, qid, Disp# 100 g, Refills: 2, not to exceed 16 grams/day/single joint of lower extremities, Pharmacy: [id number] Start Date: 03/11/21 Stop Date: 06/09/21 Status: Ordered Problem List Condition Confirmation Course [...] 5L oxygen at night. 5Steve Malin - [facility] pulmonary Diagnosis Diagnosis Type Effective Dates Health Status Clinical Service Informant Complex care coordination Discharge Diagnosis 05/09/23 Non-Specified Nocturnal hypoxia Discharge Diagnosis 05/09/23 Procedures Procedure Date Related Diagnosis Body Site [...] and an infectious/inflammatory process cannot be excluded. [id number] 25stg 4 ovarian cancer Social History Social History Type Response Tobacco 1 Smoking Status Never smoked cigaret charito Sex Female 1none FCM Outpt Note * MD Mcdaniel Ravishankar E: MODIFY MD Mcdaniel Ravishankar E: MODIFY Event Display: FCM Outpt Note Authored Date: TeleHealth Visit Note I have confirmed the patients name and date of . The patient has consented to this service,and I have advised the patient that this is a billable visit for which they may be subject to a copay. [x ] The patient has initiated this visit after he/she was informed of the availability of telehealth for this medically necessary visit. [ _ ] The provider initiated this visit after explaining the need for this visit to the patient, who has consented to this virtual visit. I am located at my: [x ] Office [ _ ] Home [ _ ] Other: _ The patient is located at: [x ] Home [ _ ] Other: _ This visit was conducted via live audio/video technology: [ _ ] [facility] [ _ ] Zoom This visit was conducted via [x ] Telephone, and was not related to a visit or procedure that occurred within the past 7 days. Telephone Only Visit: Reason for audio only visit was [ _ ] no internet connection available [x ] Other: patient preference. Total time spent communicating with the patient:22 minutes Chief Complaint f/u History of Present Illness 67-year-old female with history of ambulatory dysfunction in setting of nonhealing R femur fracture, OHS, chronic respiratory failure on home O2 via tracheostomy, CKD stage IV,HFpEF, asthma, bronchiectasis, CAD,ID-DM2 withdiabetic neuropathy, hypertension, hyperlipidemia, hypothyroidism,[facility] cancerhere today to have a form filled out. This is my first time meeting Ms. Jackson and this visit was performed over TeleHealth. She does not recall any specific forms need filled out. On review of her chart, it appears she needs a renewal script for her oxygen. She has a permanent metal trach. She takes torsemide b.i.d. and Aldactone. Uses 5L at night primarily via Trach. Usually gets through [facility]. No recent changes.No f/c/NS/cough/new swelling/orthopnea.SpO2 around 96-98%+ during day on random checks. Can't get out of the house - needs to widen the door frame. Not sure when that will be done. Being done through her insurance -- [employer] - visitor services representative Dannielle Paige [phone]. Has home health / helpers coming in to aid with general needs. Daughter also present. Can't get to medical follow-ups until door frame is widened for wheelchair Review of Systems As per HPI Physical Exam Objective examination is limited by what could be appreciated on the Telephone without visual correlation. Of what could be observed: - The patient is speaking in full sentences without conversational dyspnea. Speaks freely when responding to questions. No hoarseness. No heavy breathing. No intermittent cough. No aphasia. No sniffling. Assessment/Plan 1.Nocturnal hypoxia Chronic problem,Stable, Goal -Resolution of symptoms *Multifactorial between likely RASHAAD, OHS, asthma, HFpEF, CKD4 * Unable to perform physical exam today given telephone platform, but reports that no new symptoms suggesting hypervolemia/PNA/asthma exacerbation * Continue home O2 @ 5L per night via Trachand PRN during the day to maintain O2 saturations >92% 2.Complex care coordination Acute problem,Unstable, Goal -Resolution of symptoms *Multiple specialists, DME requirements, inability to leave home - appreciate CM input for aid incommunity resources. She is also wondering how to get another bedside commode given her current onefeels unstable. * Recommended calling [facility] re: getting her commode repaired. Otherwise, we can attempt writing another script for bedside commode and sending it in * If unable to leave house by next visit, recommend setting up appointments with Cardiology/Nephrology by TeleHealth Dispo: Patient is in agreement with the assessment and plan.RTC in1mo viaTeleHealth greg person or sooner for acute concerns. Ms. Jackson would benefit from being followed by a single provider given her medical complexity and needs. She will f/u with Dr. Grey in 1 month. Attestation ATTENDING PHYSICIAN ATTESTATION: I was immediately available during the entire telephonic visit andpresent in person for the assessment/plan review with the patient (in total 15min). All questionsanswered between myself and the resident with patient in conference call.I have personally discussed the findings and plan of care with the resident at length and concur with findings and plan ofcare as above. Problem List/Past Medical History Ongoing Ambulatory dysfunction Anemia Anxiety Arthritis Bronchiectasis Chronic back pain Chronic right heart failure CKD (chronic kidney disease), stage IV Coronary artery disease Depression Diabetic neuropathy Diastolic heart failure Distal radius fracture, left Glaucoma Hyperlipidemia Hypertension Hypothyroid Ingrown toenail of both [...] salpingo-oophorectomy Medications acetaminophen(acetaminophen 325 mg oral tablet) albuterol(albuterol 0.083% for nebulization) albuterol(Albuterol (Eqv-ProAir HFA) 90 mcg/inh inhalation aerosol), 2 puff, inhaled, q6h albuterol-ipratropium(Combivent Respimat 20 mcg-100 mcg/inh inhalation aerosol), 1 puff, inhaled, q4h, 2 refills aspirin(aspirin 81 mg oral delayed release tablet) atorvastatin(atorvastatin 40 mg oral tablet), 40 mg= 1 tab, PO, Daily azithromycin(azithromycin 250 mg oral tablet), 250 mg= 1 tab, PO buPROPion(buPROPion 100 mg/12 hours (SR) oral tablet, extended release), 300 mg= 3 tab, PO, Daily, 5 refills diclofenac topical(Voltaren 1% topical gel), 2 g, topical, qid, 2 refills docusate(docusate sodium 100 mg oral capsule) empagliflozin(Jardiance 25 mg oral tablet), See Instructions fluconazole(fluconazole 100 mg oral tablet), 100 mg= 1 tab, PO, Daily folic acid(folic acid 1 mg oral tablet), See Instructions folic acid(folic acid 1 mg oral tablet), See Instructions furosemide, 10 mg, PO, Daily insulin lispro(HumaLOG Vial 100 units/mL injectable solution), subQ, Daily isosorbide mononitrate(isosorbide mononitrate 60 mg oral tablet, extended release), See Instructions levoFLOXacin(Levaquin 500 mg oral tablet), 500 mg= 1 tab, PO, Daily levothyroxine(levothyroxine 200 mcg (0.2 mg) oral tablet), 200 mcg= 1 tab, PO, Daily lidocaine topical(Salonpas Maximum Strength 4% topical film), See Instructions, 3 refills lisinopril(lisinopril 2.5 mg oral tablet), See Instructions loratadine(loratadine 10 mg oral tablet) metOLazone(metOLazone 2.5 mg oral tablet) metoprolol(Metoprolol Tartrate 25 mg oral tablet), See Instructions montelukast(montelukast 10 mg oral tablet), See Instructions nitroglycerin(nitroglycerin 0.4 mg sublingual tablet), 0.4 mg= 1 tab, SL, q5min, PRN pantoprazole(pantoprazole 40 mg oral delayed release tablet), See Instructions potassium chloride(Potassium Chloride (Yya-Kljb-Ioe 10) 10 mEq oral tablet, extended release), See Instructions predniSONE(predniSONE 10 mg oral tablet), See Instructions pregabalin(Lyrica 50 mg oral capsule), 50 mg= 1 cap, PO, tid, 2 refills spironolactone(spironolactone 25 mg oral tablet), 25 mg= 1 tab, PO, Daily topiramate(topiramate 100 mg oral tablet), See Instructions torsemide(torsemide 20 mg oral tablet), 40 mg= 2 tab, PO, Daily Allergies Elavil (Moderate)Violent behavior Neurontin (Moderate)Violent behavior Duratuss DM (Mild)unknown Glucophage (Mild)Nausea amoxicillin (Mild)Rash doxycycline (Mild)unknown penicillin (Mild)Hives Lyrica"jerks", loss of balance causing fall Social History Smoking Status Never smoked cigarettes Alcohol - Comments: none Employment/School Status:Retired Description:[employer]. Home/Environment Lives with:Children Other risks in environment:Pets/Animal [...] Health Maintenance Pending(in the next year) OverDue Adult Influenza Vaccine due05/21/22and every 1year Colorectal Cancer Screening due07/13/22and every 3year Breast Cancer Screening due09/26/22and every 731day Diabetic Eye Exam due01/26/23and every 1year Body Mass Index due02/02/23and every 1year Due Adult COVID-19 Vaccination due05/09/23Unknown Frequency Adult Tdap/Td Vaccine due05/09/23Unknown Frequency Hepatitis C Screening due05/09/23One-time only Pneumococcal Vaccine Older Adults due05/09/23One-time only Shingles Vaccine due05/09/23One-time only Due In Future Diabetes Management A1c not due until07/25/23and every 1year Satisfied(in the past 1 year) There are no satisfied recommendations within the defined date range Electronic Signature on File Electronically Reviewed/Signed by: Patrick Turner Author Signature Dt/Tm:05/09/2023 02:21 PM Resident Department of Family Medicine Electronically Reviewed/Signed by: Percy Mcdaniel MD Cosigner Signature Dt/Tm: 05/09/2023 02:51PM Department of Family Medicine [facility] Patient Care team information Care Team Personnel Name: MONISHA Baltazar, Kaylynn Snow Position: Physician - Podiatry Member Role: Lifetime Relationship Address: Address: [address] [place] [address] [place] Name: MD Everardo, Ofe Position: Physician - Family Med Member Role: Primary Care Provider Address: Address: [address] [place] [address] [place] Name: Merced Ortiz MD, Andres Position: Resident Member Role: Lifetime Relationship Address: Address: [address] [place] [address] Care Team Related Persons Name: CÉSAR NICOLE Address: [address] [place] [phone]
--- OUTSIDE RECORDS SUMMARY | 2023-10-17 12:19 | External Medical Summary | Continuity of Care Document ---
Author Name Unknown Organization [facility] [address] [place] [address] 207 [address] [id number] Care Team Providers Care Medical Advisor Name Role Phone Mcgee Ofe Primary Care Physician [phone] [id number] Date(s): 05/11/23 - 05/11/23 [facility] 1850 [facility] 207 [facility] Practice Site 1850 [facility] 207 [place], [place] [address]Rxybt [phone] Discharge Disposition: Home or Self Care Attending Physician: DO Strauss Gretchen Elizabeth Referring Physician: DO Strauss Gretchen Elizabeth Allergies, Adverse [...] vaccine 1 09/27/16 Recorded pneumococcal 13-valent vaccine 6/9/15 Recorded tetanus/diphtheria/pertuss, acel (Tdap) 2 07/29/11 Recorded 1Result Comment: 2020-01-15: Historical information-source unspecified 2Result Comment: 2020-01-15: Historical information-source unspecified Medications acetaminophen 325 mg oral tablet Start: 05/20/21 10:40:00 EDT, 650 Unknown, Oral, 1 Refill(s) Start Date: 05/20/21 Status: Ordered Albuterol (Eqv-ProAir HFA) 90 mcg/inh inhalation aerosol Start: 02/25/22 14:24:00 EDT, 2 puff, inhaled, q6h, Disp# 6.7 g, 8 unknown unit, Pharmacy: [facility] #[id number] Start Date: 02/25/22 Status: Ordered [...] and 2 tablets in the evening, Pharmacy: [facility] #[id number] Start Date: 05/10/23 Status: Ordered Combivent Respimat 20 mcg-100 mcg/inh inhalation aerosol Start: 02/25/22 14:24:00 EDT, 1 puff, inhaled, q4h, Disp# 1 each, Refills: 2, Pharmacy: [facility] #[id number] Start Date: 02/25/22 Status: Ordered [...] 1 TABLET BY MOUTH ONCE DAILY, Pharmacy: [facility] #187 Start Date: 12/28/21 Status: Ordered folic acid 1 mg oral tablet See Instructions, Disp# 30 tab, Refills: 5, TAKE 1 TABLET BY MOUTH ONCE DAILY, Pharmacy: [facility] #187 Start Date: 12/28/21 Status: Ordered [...] EVERY MORNING , Pharmacy: [id number] Start Date: 01/04/21 Status: Ordered Jardiance 25 mg oral tablet See Instructions, Disp# 30 tab, Refills: 5, TAKE ONE TABLET BY MOUTH EVERY MORNING , Pharmacy: [facility] Start Date: 11/02/21 Status: Ordered Levaquin 500 mg oral tablet Start: 02/25/22 14:20:00 EDT, 1 tab, PO, Daily, Disp# 10 tab, Pharmacy: [facility]187 Start Date: 02/25/22 Stop Date: 03/07/22 Status: Ordered levothyroxine 200 mcg (0.2 mg) oral tablet Start: 05/07/21 10:58:00 EDT, 1 tab, PO, Daily Start Date: 05/07/21 Status: Ordered lisinopril 2.5 mg oral tablet See Instructions, Disp# 30 tab, Refills: 3, TAKE 1 TABLET BY MOUTH ONCE DAILY, Pharmacy: [facility]187 Start Date: 01/11/22 Status: Ordered loratadine 10 mg oral tablet Start: 05/20/21 10:40:00 EDT, 10 Unknown, Oral, 1 Refill(s) Start Date: 05/20/21 Status: Ordered Lyrica 50 mg oral capsule Start: 10/08/21 11:19:00 EST, 1 cap, PO, tid, Disp# 90 cap, Refills: 2, Pharmacy: [facility]187 Start Date: 10/08/21 Stop Date: 01/06/22 Status: Ordered metOLazone 2.5 mg oral tablet Start: 03/03/21 10:07:00 EDT Start Date: 03/03/21 Status: Ordered Metoprolol Tartrate 25 mg oral tablet See Instructions, Disp# 60 tab, Refills: 5, TAKE 1 TABLET BY MOUTH TWICE DAILY, Pharmacy: [facility] #187 Start Date: 12/28/21 Status: Ordered montelukast 10 mg oral tablet See Instructions, Disp# 30 tab, Refills: 11, TAKE 1 TABLET BY MOUTH EVERY EVENING, Pharmacy: [facility]187 Start Date: 01/27/22 Status: Ordered nitroglycerin 0.4 mg sublingual tablet Start: 05/07/21 10:58:00 EDT, 1 tab, SL, q5min, Disp# 25 tab, PRN: as needed for chest pain Start Date: 05/07/21 Status: Ordered pantoprazole 40 mg oral delayed release tablet See Instructions, Disp# 30 tab, Refills: 5, TAKE 1 TABLET BY MOUTH ONCE DAILY, Pharmacy: [facility]187 Start Date: 12/28/21 Status: Ordered Potassium Chloride (Eko-Gofu-Mge 10) 10 mEq oral tablet, extended release See Instructions, Disp# 60 tab, Refills: 3, TAKE 1 TABLET BY MOUTH TWICE DAILY, Pharmacy: [facility] #187 Start Date: 01/11/22 Status: Ordered predniSONE 10 mg oral tablet Start: 02/25/22 14:20:00 EDT, See Instructions, Disp# 28 tab, Take four tabs daily (40mg) for four days, then two tabs daily (20mg) for four days, then one tab daily (10mg) for four days, Pharmacy: [facility]187 Start Date: 02/25/22 Status: Ordered Salonpas Maximum Strength 4% topical film Start: 09/10/20 10:40:00 EDT, See Instructions, Disp# 30 film, Refills: 3, do not leave patch on for more than 8 hours at a time, Pharmacy: [facility] #187 Start Date: 09/10/20 Status: Ordered spironolactone 25 mg oral tablet Start: 05/07/21 10:58:00 EDT, 1 tab, PO, Daily Start Date: 05/07/21 Status: Ordered topiramate 100 mg oral tablet See Instructions, Disp# 90 tab, Refills: 5, TAKE ONE TABLET BY MOUTH EVERY MORNING AND TWO TABLETS AT BEDTIME., Pharmacy: [facility] #187 Start Date: 12/28/21 Status: Ordered torsemide 20 mg oral tablet Start: 01/15/20 13:17:00 EST, 2 tab, PO, Daily Start Date: 01/15/20 Status: Ordered Voltaren 1% topical gel Start: 03/11/21 10:19:00 EDT, 2 g =, topical, qid, Disp# 100 g, Refills: 2, not to exceed 16 grams/day/single joint of lower extremities, Pharmacy: [facility] #187 Start Date: 03/11/21 Stop Date: [...] at night. 5Steve Malin - [facility] pulmonary Procedures Procedure Date Related [...] and an infectious/inflammatory process cannot be excluded. 046306 25stg 4 ovarian cancer Social History Social History Type Response Tobacco 1 Smoking Status Never smoked cigaret charito Sex Female 1none Patient Care team information Care Team Personnel Name: MONISHA Baltazar, Kaylynn Snow Position: Physician - Podiatry Member Role: Lifetime Relationship Address: Address: [address] [place] [address] [place] Name: MD Everardo, Ofe Position: Physician - Family Med Member Role: Primary Care Provider Address: Address: [address] [place] [address] [place] Name: Merced Ortiz MD, Andres Position: Resident Member Role: Lifetime Relationship Address: Address: [address] Care Team Related Persons Name: CÉSAR NICOLE Address: home [address] [place] [address] KATIE BHAT [phone]
--- OUTSIDE RECORDS SUMMARY | 2023-10-17 12:19 | External Medical Summary | Continuity of Care Document ---
Author Name Unknown Organization [facility] 1850 [facility] 207 Address [address] [id number] Care Team Providers Care Natural Resources Extension Educator Name Role Phone Ofe Mcgee Primary Care Physician [phone] [id number] Date(s): 06/24/23 - 06/24/23 [facility] [address] [facility] 207 [facility] Practice Site 1850 [facility] 207 [place], [place] [address]Jxarl [phone] Encounter Diagnosis Ambulatory dysfunction(Discharge Diagnosis) - 06/25/23 Anxiety(Discharge Diagnosis) - 06/25/23 Bronchiectasis(Discharge Diagnosis) - 06/25/23 CKD (chronic kidney disease), stage IV(Discharge Diagnosis) - 06/25/23 Diastolic heart failure(Discharge Diagnosis) - 06/25/23 Status post tracheostomy(Discharge Diagnosis) - 06/25/23 Obesity hypoventilation syndrome(Discharge Diagnosis) - 06/25/23 Insulin dependent diabetes mellitus(Discharge Diagnosis) - 06/25/23 Hypothyroid(Discharge Diagnosis) - 06/25/23 Morbid obesity(Discharge Diagnosis) - 06/25/23 Hypertension(Discharge Diagnosis) - 06/25/23 Discharge Disposition: Home or Self Care Attending [...] g, Refills: 1, 8 unknown unit, Pharmacy: [facility] #187 Start Date: 06/02/23 Status: Ordered aspirin 81 mg oral delayed release tablet Start: 05/20/21 10:40:00 EDT, 81 Unknown, Oral, 1 Refill(s) Start Date: 05/20/21 Status: Ordered atorvastatin 40 mg oral tablet Start: 06/02/23 13:33:00 EDT, 1 tab, PO, Daily, Disp# 30 tab, Refills: 3, Pharmacy: [facility] #187 Start Date: 06/02/23 Stop Date: 09/30/23 Status: Ordered azithromycin 250 mg oral tablet Start: 06/02/23 13:29:00 EDT, See Instructions, Disp# 30 tab, Refills: 1, 1 tab PO Tuesday, Tuesday and Tuesday, Pharmacy: [facility] #187 Start Date: 06/02/23 Status: Ordered buPROPion 100 mg/12 hours (SR) oral tablet, extended release Start: 06/02/23 13:30:00 EDT, See Instructions, Disp# 90 tab, Refills: 1, take 1 tablet by mouth inthe morning and 2 tablets in the evening, Pharmacy: [facility] #187 Start Date: 06/02/23 Status: Ordered Combivent Respimat 20 mcg-100 mcg/inh inhalation aerosol Start: 06/02/23 13:28:00 EDT, 1 puff, inhaled, q4h, Disp# 1 each, Refills: 2, Pharmacy: [facility] #187 Start Date: 06/02/23 Status: Ordered docusate sodium 100 mg oral capsule Start: 05/20/21 10:40:00 EDT, 100 Unknown, Oral, 1 Refill(s) Start Date: 05/20/21 Status: Ordered folic acid 1 mg oral tablet Start: 06/02/23 13:31:00 EDT, See Instructions, Disp# 30 tab, Refills: 1, TAKE 1 TABLET BY MOUTH ONCE DAILY, Pharmacy: [facility]187 Start Date: 06/02/23 Status: [...] ONE TABLET BY MOUTH EVERY MORNING, Pharmacy: [facility] #187 Start Date: 06/25/23 Status: Ordered Jardiance 25 mg oral tablet See Instructions, Disp# 30 tab, Refills: 5, TAKE ONE TABLET BY MOUTH EVERY MORNING , Pharmacy: [facility] #187 Start Date: 11/02/21 Status: Ordered levothyroxine 200 mcg (0.2 mg) oral tablet Start: 06/02/23 13:34:00 EDT, 1 tab, PO, Daily, Disp# 30 tab, Refills: 1, Pharmacy: [facility]187 Start Date: 06/02/23 Stop Date: 08/01/23 Status: Ordered levothyroxine 25 mcg (0.025 mg) oral tablet Start: 06/25/23 15:49:00 EDT, 1 tab, PO, Daily, Disp# 30 tab, Refills: 1, Note to Pharmacy: should be on 225 mcg, Pharmacy: [facility] #187 Start Date: 06/25/23 Stop [...] 1 TABLET BY MOUTH TWICE DAILY, Pharmacy: [facility] #187 Start Date: 06/02/23 Status: Ordered montelukast 10 mg oral tablet Start: 06/02/23 13:35:00 EDT, See Instructions, Disp# 30 tab, Refills: 11, TAKE 1 TABLET BY MOUTH EVERY EVENING, Pharmacy: [facility] #187 Start Date: 06/02/23 Status: Ordered nitroglycerin 0.4 mg sublingual tablet Start: 05/07/21 10:58:00 EDT, 1 tab, SL, q5min, Disp# 25 tab, PRN: as needed for chest pain Start Date: 05/07/21 Status: Ordered pantoprazole 40 mg oral delayed release tablet Start: 06/02/23 13:35:00 EDT, See Instructions, Disp# 30 tab, Refills: 1, TAKE 1 TABLET BY MOUTH ONCE DAILY, Pharmacy: [facility]187 Start Date: 06/02/23 Status: Ordered Potassium Chloride (Uqh-Mvjs-Fnr 10) 10 mEq oral tablet, extended release Start: 06/02/23 13:35:00 EDT, See Instructions, Disp# 60 tab, Refills: 1, TAKE 1 TABLET BY MOUTH TWICE DAILY, Pharmacy: [facility] #187 Start Date: 06/02/23 Status: Ordered Salonpas Maximum Strength 4% topical film Start: 09/10/20 10:40:00 EDT, See Instructions, Disp# 30 film, Refills: 3, do not leave patch on for more than 8 hours at a time, Pharmacy: [facility] #187 Start Date: 09/10/20 Status: Ordered spironolactone 25 mg oral tablet Start: 06/25/23 15:50:00 EDT, 1 tab, PO, Daily, Disp# 30 tab, Refills: 1, Pharmacy: [facility]187 Start Date: 06/25/23 Stop Date: 08/24/23 Status: Ordered topiramate 100 mg oral tablet Start: 06/02/23 13:32:00 EDT, See Instructions, Disp# 90 tab, Refills: 1, TAKE ONE TABLET BY MOUTH EVERY MORNING AND TWO TABLETS AT BEDTIME., Pharmacy: [facility]187 Start Date: 06/02/23 Status: Ordered torsemide 20 mg oral tablet Start: 01/15/20 13:17:00 EST, 2 tab, PO, Daily Start Date: 01/15/20 Status: Ordered Voltaren 1% topical gel Start: 06/02/23 13:30:00 EDT, 2 g =, topical, qid, Disp# 100 g, Refills: 2, not to exceed 16 grams/day/single joint of lower extremities, Pharmacy: [facility] #187 Start Date: 06/02/23 Stop [...] Confirmed Active Ambulatory dysfunction Confirmed Active 1sees susu - Fidelia 2Dr. Donell 3DrFidelia Calle 4On 5L oxygen at night. 5Steve Kimo - [facility] pulmonary Diagnosis Diagnosis Type Effective Dates Health Status Clinical Service Informant Bronchiectasis Discharge Diagnosis 06/25/23 Ambulatory dysfunction Discharge Diagnosis 06/25/23 Diastolic heart failure Discharge Diagnosis 06/25/23 CKD (chronic kidney disease), stage IV Discharge Diagnosis 06/25/23 Status post tracheostomy Discharge Diagnosis 06/25/23 Obesity hypoventilation syndrome Discharge Diagnosis 06/25/23 Hypothyroid Discharge Diagnosis 06/25/23 Insulin dependent diabetes mellitus Discharge Diagnosis 06/25/23 Anxiety Discharge Diagnosis 06/25/23 Morbid obesity Discharge Diagnosis 06/25/23 Hypertension Discharge Diagnosis 06/25/23 Procedures Procedure Date Related Diagnosis Body Site [...] and an infectious/inflammatory process cannot be excluded. 260517 25stg 4 ovarian cancer Social History Social History Type Response Tobacco 1 Smoking Status Never smoked cigaret charito Sex Female 1none Patient Care team information Care Team Personnel Name: MONISHA Baltazar, Kaylynn Snow Position: Physician - Podiatry Member Role: Lifetime Relationship Address: Address: [address] [place] [address] [address] [place] [address] [place] Name: MD Mcgee Madhavi Position: Physician - Family Med Member Role: Primary Care Provider Address: Address: [address] [place] [address] [address] [place] [address] [place] Care Team Related Persons Name: CÉSAR NICOLE Address: home [address] [place] [address] KATIE BHAT [phone]
--- OUTSIDE RECORDS SUMMARY | 2023-10-17 12:19 | External Medical Summary | Summary of Care ---
Author Name Unknown Organization [facility] Address [address] [place] [address] Phone [phone] Care Team Providers Care Bleacher Operator Name Role Phone Ofe Mcgee MD Primary Care Provider [phone] Encounter Details Date Type Department Care Team Description 07/12/2023 Orders Only Outcomes Research Department [address] [place] [address] Diana Crandall CHRA MyCode Research Other*[id number] Allergies Active Allergy Reactions Severity Noted Date Comments Amoxicillin 04/27/2002 Dextromethorphan-Guaifenesin 010 Doxycycline 04/27/2002 Amitriptyline Hcl 08/10/2010 Gabapentin 09/01/2006 Other reaction(s): Physical aggression (finding) Metformin Hydrochloride 08/06/2010 Gabapentin 08/10/2010 Getting violent Penicillins Hives 04/26/2008 documented as of this encounter (statuses as of 07/12/2023) Medications Medication Sig Dispensed Refills Start Date [...] NEBULIZER MISCIndications:CO PD, severity to be determined ([facility]),Attention to tracheostomy ([facility]) tubing for use of nebulizer for a [...] heart failure (HCC),Chronic diastolic HF (heart failure) ([facility]),HTN, goal below 140/90,Ambulatory dysfunction 1 bedside commode 1 Each 0 05/08/2021 Active Contour Next Test In Vitro Strip (Glucose Blood)Indications: Type 2 diabetes mellitus with hemoglobin A1c goal of less than 8.0% ([facility]) use to test 3 times daily 300 Strip 3 07/13/2021 Active Nitroglycerin 0.4 MG Sublingual Tablet Sublingual (Nitrostat)Indicat ions:Coronary artery disease involving [place] coronary artery of [place] heart without angina pectoris DISSOLVE 1 TABLET [...] 24 Hour (Imdur)Indications :Coronary artery disease involving [place] coronary artery of [place] heart without angina pectoris TAKE 1 TABLET BY MOUTH ONCE DAILY 30 Tablet 0 06/23/2023 Active Spironolactone 25 MG Oral Tablet (Aldactone)Indicat ions:Chronic right-sided heart failure (HCC) TAKE 1 TABLET BY MOUTH ONCE DAILY 31 Tablet 0 06/23/2023 Active Sertraline HCl 50 MG Oral Tablet (Zoloft)Indication s:Coronary artery disease involving [place] coronary artery of [place] heart without angina pectoris,Chronic right-sided heart failure (HCC) TAKE 1 TABLET BY MOUTH EVERY MORNING 30 Tablet 0 06/23/2023 Active documented as of this encounter (statuses as of 07/12/2023) Active Problems Problem Noted Date Nocturnal hypoxia [...] as of this encounter (statuses as of 07/12/2023) Resolved Problems Problem Noted Date Resolved Date [...] as of this encounter (statuses as of 07/12/2023) Immunizations Name Administration Dates Next Due COVID-19, LNP-s, No Preserve , Tello-sucrose, Ages 12+ (Pfizer) 06/08/2022 Pneumococcal Conjugate Vacc, 13 Valent (Prevnar) 04/29/2015 Pneumococcal Polysaccharide PPV23 (Pneumovax) 09/27/2016 Seasonal Influenza, PF, 6 mo ns & Above, IM , (Flulaval) 08/22/2019,09/12/2018,08/23/2017 Seasonal Influenza, Quadriva lent, No Preserve, [...] on file documented as of this encounter Plan of Treatment Scheduled Orders Name Type Priority Associated Diagnoses Orde r Schedule MYCODE SUBSEQUENT ADULT Lab Routine MyCode Research Other*[id number] Every 6 Months for 2 Occurrences starting 07/12/2023 until 07/31/2024 Health Maintenance Due Date Last Done Comments [...] 06/21/2022, Additional history exists TSH 04/25/2023 04/25/2022, 1102/2019, 07/13/2019, Additional history exists CKD PHOS USE SMARTSET 60713 06/12/202305/22, 04/04/2022, 04/03/2022, Additional history exists CKD HGB USE SMARTSET 76917 07/05/202307/05, 06/12/2022, 06/12/2022, Additional history exists Influenza Vaccine (FLU shot) [...] as of this encounter Visit Diagnoses Diagnosis MyCode Research Other*[id number] documented in this encounter Advance Directives Latest [...] 1:48 AM 03/06/2008 9:34 PM Care Teams Bleacher Operator Relationship Specialty Start Date End Date Ofe Mcgee MD [address] [place] [address] PCP - General Family Medicine 06/02/20 documented as of this encounter
--- OUTSIDE RECORDS SUMMARY | 2023-10-17 12:20 | External Medical Summary ---
Author Name UNSPECIFIED Address Unknown Organization [facility] History of Encounters Reason for Assessment: Start of care - f urther visits planned Inpatient discharge facility: Past 14 Da ys: Discharged From Short Stay Acute Hospital Most Recent Inpatient Discharge Date: Functional Assessment Patient Living Situation: Patient lives with other person(s) in the home: Around the clock When Dyspneic: With minimal exertio n (e.g., while eating, talking, or performing other ADLs) or with agitation Urinary Incontinence or Urin lily Catheter Present: Patient is incontinent Bowel Incontinence Frequency: Very rarel y or never has bowel incontinence Cognitive and Behavioral and Psychiatric Symptoms: None Current Ability: Bathing: Unable to use the shower or tub, but able to participate in bathing self in bed, at the sink, in bedside chair, or on commode, with the assistance or supervision of another person throughout the bath. Current Ability: Ambulation: Chairfast, unable to ambulate and is unable to wheel self. Current: Management Of Oral Medications: Able to take medication(s) at the correct times if: (a) individual dosages are prepared in advance by another person; OR (b) another person develops a drug diary or chart Problems Primary Home Care Diagnosis ICD Code: E1 1.22, Type 2 diabetes mellitus w diabetic chronic kidney disease Home Care Diagnosis 1: ICD Code: I13.0, Hyp hrt & chr kdny dis w hrt fail and stg 1-4/unsp chr kdny Home Care Diagnosis 1: Severity Ratin Home Care Diagnosis 2: ICD Code: I50.32, Chronic diastolic (congestive) heart failure Home Care Diagnosis 2: Severity Ratin Home Care Diagnosis 3: ICD Code: N18.31^ ^ Home Care Diagnosis 3: Severity Ratin Home Care Diagnosis 4: ICD Code: R26.2, Difficulty in walking, not elsewhere classified Home Care Diagnosis 4: Severity Ratin Home Care Diagnosis 5: ICD Code: J96.10, Chronic respiratory failure, unsp w hypoxia or hypercapnia Home Care Diagnosis 5: Severity Ratin
--- OUTSIDE RECORDS SUMMARY | 2023-10-17 12:20 | External Medical Summary ---
Author Name UNSPECIFIED Address Unknown Organization [facility] History of Encounters Reason for Assessment: Discharge from [facility] Inpatient Facility where the patient been admitted: No inpatient facility admission Discharge Disposition: Patient remained in the community (with formal assistive services) Functional Assessment When Dyspneic: With minimal exertio n (e.g., while eating, talking, or performing other ADLs) or with agitation Bowel Incontinence Frequency: Very rarel y or never has bowel incontinence When Anxious (Reported or Observed): Guerda ly, but not constantly Cognitive and Behavioral and Psychiatric Symptoms: None Current Ability: Bathing: Unable to use the shower or tub, but able to participate in bathing self in bed, at the sink, in bedside chair, or on commode, with the assistance or supervision of another person throughout the bath. Current Ability: Ambulation: Chairfast, unable to ambulate but is able to wheel self independently. Current: Management Of Oral Medications: Able to take medication(s) at the correct times if: (a) individual dosages are prepared in advance by another person; OR (b) another person develops a drug diary or chart
--- OUTSIDE RECORDS SUMMARY | 2023-10-17 12:20 | External Medical Summary | Summary of Care ---
Author Name Unknown Organization [facility] Address [address] [address] Phone [phone] Care Team Providers Care Opener Name Role Phone Stephanie Dunn MD Primary Care Provider [phone] Reason for Visit * Reason Comments Follow Up * Additional Visits (Within 10 days (routine)) - Closed Specialty Diagnoses / Procedures Referred By Contac t Referred To Contact Cardiovascular Medicine / Cardiology Diagnoses Acute and chronic respiratory failure with hypoxia (HCC) Morbid (severe) obesity due to excess calories (HCC) Atherosclerotic heart disease of kaw coronary artery without angina pectoris Chronic kidney disease, stage 3b (HCC) Procedures [place] OFFICE/OUTPATIENT ESTABLISHED MOD MDM 30-39 MIN [facility] VISIT Stephanie Dunn MD [address] [place] [address] Cardiology [facility] [address] [facility] [address] Referral ID Status Reason Start Date Expiration Date V isits Requested Visits Authorized [id number] Closed Specialty Services Required 09/20/2022 03/22/2023 3 3 Encounter Details Date Type Department Care Team Description 05/10/2023 Telemedicine [facility] [place] [address] Aman Marley DO [address] [place] [id number] Chronic diastolic HF (heart failure) (HCC)*; Chronic right-sided heart failure (HCC); Obesity hypoventilation syndrome (HCC) Allergies Active Allergy Reactions Severity Noted Date Comments Amoxicillin 04/27/2002 Dextromethorphan-Guaifenesin 010 Doxycycline 04/27/2002 Amitriptyline Hcl 08/10/2010 Gabapentin 09/01/2006 Other reaction(s): Physical aggression (finding) Metformin Hydrochloride 08/06/2010 Gabapentin 08/10/2010 Getting violent Penicillins Hives 04/26/2008 documented as of this encounter (statuses as of 05/10/2023) Medications Medication Sig Dispensed Refills Start Date [...] severity to be determined (HCC),Attention to tracheostomy ([facility]) tubing for use of nebulizer for a patient with tracheostomy 1 Units 0 09/06/2012 Active NEBULIZER DEVIIndications:CO PD, severity to be determined ([facility]),Attention to tracheostomy ([facility]) for use with albuterol for wheezing. use every 4 hours as needed for wheezing. include tracheostomy masks 1 Device 0 09/07/2012 Active SPACER/AERO-HOLDIN G CHAMBERS DEVIIndications:CO PD, severity to be determined ([facility]) use with inhaler 1 Device 0 06/07/2014 Active OXYGENIndications: COPD, severity to be determined ([facility]),Nocturnal hypoxemia 5 L/min(Oxygen) at bedtime . Via [...] heart failure (HCC),Chronic diastolic HF (heart failure) ([facility]),HTN, goal below 140/90,Ambulatory dysfunction 1 bedside commode 1 Each 0 05/08/2021 Active Spironolactone 25 MG Oral Tablet (Aldactone)Indicat ions:Chronic right-sided heart failure (HCC) TAKE 1 TABLET BY MOUTH ONCE DAILY 31 Tab 11 06/15/2021 Active Contour Next Test In Vitro Strip (Glucose Blood)Indications: Type 2 diabetes mellitus with hemoglobin A1c goal of less than 8.0% ([facility]) use to test 3 times daily 300 Strip 3 07/13/2021 Active Isosorbide Mononitrate ER 60 MG Oral Tablet Extended Release 24 Hour (Imdur)Indications :Coronary artery disease involving kaw coronary artery of kaw heart without angina pectoris TAKE 1 TABLET BY MOUTH ONCE DAILY 30 Tablet 11 01/27/2022 Active Nitroglycerin 0.4 MG Sublingual Tablet Sublingual (Nitrostat)Indicat ions:Coronary artery disease involving kaw coronary artery of kaw heart without angina pectoris DISSOLVE 1 TABLET [...] by mouth in the morning. 0 Active documented as of this encounter (statuses as of 05/10/2023) Active Problems Problem Noted Date Nocturnal hypoxia [...] as of this encounter (statuses as of 05/10/2023) Resolved Problems Problem Noted Date Resolved Date [...] as of this encounter (statuses as of 05/10/2023) Immunizations Name Administration Dates Next Due COVID-19, [...] on file documented as of this encounter Progress Notes * Aman Marley, - 05/10/2023 11:17 AM EDT Patient location: HOME. I was in a hospital or clinic location. After connecting through telephone,patient was verified with two unique identifiers. Patient (or authorized legal business representative) was then informed that this was a Telemedicine visit and being conducted confidentially over secure lines. Methods to assure confidentiality were taken. Patient acknowledged consent and understanding of pr ivacy and security of the Telemedicine visit. The patient agreed to participate. 05/10/2023 Cardiology Follow Up PCP: STEPHANIE DUNN [address] [place] [address] [phone] CHIEF COMPLAINT: Follow up, chronic diastolic dysfunction SUBJECTIVE: Whit Connelly is a 67 year old year old female assessed in follow-up via telephonictelemedicine today as per patient's preference. She had a prolonged hospital stay at [facility] from January until March this year, and spent the majority of the proceeding year in different institutions. She still has difficulty with regards to not being able to bear weight on her right leg due to her nonhealing femur fracture. She describes having an occasional fluttering sensation in her chest that last 10 minutes and taken several sublingual nitroglycerin doses with relief. She believes that she is only taking her metoprolol tartrate 12.5 milligrams 1 time per day instead of the prescribed 2 times per day. Per review of her hospital discharge summary from March, as well as her most recent office medication list, the metoprolol is to be taken 2 times per day. She is ongoing issues with regards to needing some work done in her home with regards to having a ramp built and her doors widened to accommodate her current ambulatory situation. Extensive ROS: All systems reviewed & are unremarkable except as noted in HPI & below Cardiovascular (chest pain/palpitations/fluttering/diaphoresis/dyspnea on exertion/paroxysmally nocturnal dyspnea):Negative and see above hpi Review of patient's allergies indicates: Allergen Reactions Amoxicillin Dextromethorphan-Guaifenesin Doxycycline Elavil [Amitriptyline Hcl] Gabapentin Other reaction(s): Physical aggression (finding) Glucophage [Metformin Hydrochloride] Neurontin [Gabapentin] Getting violent Pcn [Penicillins] Hives Current Outpatient Medications Medication Sig Dispense Refill TYLENOL EXTRA STRENGTH 500 MG PO TABS Take 2 Tablets by mouth in the morning and 2 Tablets before bedtime. SPACER/AERO-HOLDING CHAMBERS NATHAN use with inhaler 1 Device 0 topiramate (TOPAMAX) 100 MG Tablet TAKE 1 TABLET BY MOUTH EVERY MORNING AND 2 TABLETS AT BEDTIME 90 Tab 5 Spironolactone 25 MG Oral Tablet (Aldactone) TAKE 1 TABLET BY MOUTH ONCE DAILY 31 Tab 11 Torsemide 20 MG Oral Tablet (Demadex) Take by mouth 1 Tablet in the morning. 180 Tablet 3 Torsemide 10 MG Oral Tablet (Demadex) Take by mouth 1 Tablet every afternoon . 60 Tablet 5 Vitamin B-12 1000 MCG Oral Tablet Take by mouth 1 Tablet in the morning. 30 Tablet 0 Polyethylene Glycol 3350 17 GM Oral Packet (Miralax) Take by mouth 1 Packet daily as needed forConstipation. 14 Each 0 Sennosides-Docusate Sodium 8.6-50 MG Oral Tablet (Senokot-S) Take by mouth 2 Tablets in the morning. 60 Tablet 0 Empagliflozin 10 MG Oral Tablet (Jardiance) Take 1 Tablet by mouth in the morning. MULTIVITAMINS PO TABS Take one by mouth once daily. 35 11 ASPIRIN EC 81 MG PO TBEC 1 TABLET DAILY 30 Tab 3 [facility] tubing for use of nebulizer for a patient with tracheostomy 1 Units 0 NEBULIZER NATHAN for use with albuterol for wheezing. use every 4 hours as needed for wheezing. include tracheostomy masks 1 Device 0 OXYGEN 5 L/min(Oxygen) at bedtime . Via Trach. 1 Each 0 montelukast (SINGULAIR) 10 MG Tablet Take by mouth 10 mg at bedtime . 0 albuterol-ipratropium (DUONEB) 2.5-0.5 MG/3ML nebulizer solution 3 ML 4 times daily for increased coughing, wheezing, or shortness of breath 180 Vial 3 ONETOUCH ULTRASOFT LANCETS [facility] Use up to 6 times a day as directed, Dx: E11.9 1 Box Dosing Unit 11 metoprolol tartrate (LOPRESSOR) 25 MG Tablet take 1/2 tablet by mouth twice a day 30 Tab 5 buPROPion extended release, SR, (WELLBUTRIN SR) 100 MG TB12 take 3 tablet by mouth daily 90 Tab3 folic acid 1 MG Tablet TAKE 1 TABLET BY MOUTH ONCE DAILY 30 Tab 0 COMBIVENT RESPIMAT 20-100 MCG/ACT Inhaler INHALE ONE PUFF BY MOUTH FOUR TIMES DAILY 12 g 0 pantoprazole (PROTONIX) 40 MG TBEC TAKE 1 TABLET BY MOUTH ONCE DAILY 90 Tab 0 levothyroxine (LEVOXYL) 200 MCG Tablet Take by mouth 200 mcg daily first thing in the morning . atorvaSTATin (LIPITOR) 40 MG Tablet Take by mouth 40 mg daily . Lisinopril 2.5 MG Oral Tablet (Prinivil) Take 1 Tab by mouth daily. Commode Bedside 1 bedside commode 1 Each 0 Contour Next Test In Vitro Strip (Glucose Blood) use to test 3 times daily 300 Strip 3 Isosorbide Mononitrate ER 60 MG Oral Tablet Extended Release 24 Hour (Imdur) TAKE 1 TABLET BY MOUTH ONCE DAILY 30 Tablet 11 Nitroglycerin 0.4 MG Sublingual Tablet Sublingual (Nitrostat) DISSOLVE 1 TABLET under tongue every 5 minutes if needed for chest pain; up to 3 doses in 15 minutes 100 Tablet 3 Insulin Aspart 100 UNIT/ML Subcutaneous Solution Sliding scale with meals: Glucose 151-200 (3 units insulin), glucose 201-250 (6 units insulin), glucose 251-300 (9 units insulin), Glucose greaterthan 300 (12 units insulin). Do not exceed 36 units daily. 10 mL 6 Insulin Aspart 100 UNIT/ML Subcutaneous Solution Insulin carb coverage: 1 unit insulin for every 4 carbs 10 mL 6 Albuterol Sulfate (2.5 MG/3ML) 0.083% Inhalation Nebulization Solution (Proventil) Inhale via nebulizer 1 Vial every 4 hours as needed for Wheezing or Shortness of Breath. 360 mL 11 Insulin Glargine 100 UNIT/ML Subcutaneous Solution (Lantus) Inject under the skin 54 Units in the morning AND 54 Units before bedtime. 1 Each 12 linaGLIPtin 5 MG Oral Tablet (Tradjenta) Take by mouth 1 Tablet in the morning. (Patient not taking: Reported on 05/10/2023) 30 Tablet 0 Menthol-Zinc Oxide 0.44-20.6 % External Ointment (Calmoseptine) Apply topically to affected area as needed for Other (After bowel movements and cleaning). 71 g 2 No current facility-administered medications for this visit. OBJECTIVE/PHYSICAL EXAMINATION: This was a telephonic medicine visit. No vital signs were obtained. Patient's speech was clear and conversant. Data: Most recent chemistry panel performed 04/05/2023 included BUN 35, creatinine 1.43 ASSESSMENT / PLAN: 67 year old year old female ICD-10-CM 1. Chronic diastolic HF (heart failure) (HCC) I50.32 2. Chronic right-sided heart failure (HCC) I50.812 3. Obesity hypoventilation syndrome (HCC) E66.2 Dose clarify the patient should be taking metoprolol tartrate 12.5 milligrams twice daily. She states her lower extremity edema is well-controlled at present taking torsemide 20 milligrams daily in the morning. She was prescribed to take an extra 10 milligrams in the afternoon, but she states this is usually not possible as she does not have help to help transfer her to the commode chair in the afternoon. I counseled her that should her edema worsen she can take all 30 milligrams in the morning, but at present it sounds like the 20 milligram once a day dose is adequately controlling her volume status along with her chronic spironolactone 25 milligrams daily. 10 minutes were spent and telephone conversation from 11: 16 until 11:26 a.m.. DISPOSITION: Follow Up: Return in about 6 months (around 11/09/2023). Aman Marley DO Cardiology, [address] [address] This chart was completed in part utilizing [employer] Speech Voice Recognition Software. Grammatical errors, random word insertions, prounoun errors, and incomplete sentences are an occasional consequence of this system due to software limitations, ambient noise, and hardware issues. Any formal questions or concerns about the content, text, or information contained within the body of this dictation should be directly addressed to the provider for clarification. documented in this encounter Nursing Notes * Joy Marie LPN - 05/10/2023 11:10 AM EDT Examination Room: Telephone Name: Whit Connelly Date of : (1955) Reason for Visit: Follow up Interim Hospitalization(s): [facility] Problems/Concerns: Denies Chest Pain/SOB: Denies [facility] is a way you can talk to your provider online through e-mail. Would you like to sign up? I can activate it for you? DECLINES Patient was instructed to not get up on the exam table until directed and assisted by their provider; patient is to remain seated in the chair/ wheelchair/ exam table for fall prevention and safety reasons. Patient is aware to have assistance to step down off exam table with personnel. Patient voiced full comprehension of instructions. documented in this encounter Plan of Treatment [...] Pneumococcal Vaccine: 65+ Years (3 - PPSV23 if available, else PCV20) 09/27/2021 09/27/2016, 04/29/2015 Mammogram 10/14/2021 10/14/2020, 03/2020, 09/24/2019, Additional history exists Cologuard 07/04/2022 07/04/2019, 05/09/2019 Colorectal Cancer Screening 07/04/2022 HbA1c 09/28/2022 03/28/2022, 06/22, 03/27/2019, Additional history exists GFR 01/05/2023 07/05/2022, 0806/2022, 06/21/2022, Additional history exists TSH 04/25/2023 04/25/2022, 02/2019, 07/13/2019, Additional history exists CKD PHOS USE SMARTSET 64873 06/12/202305/22, 04/04/2022, 04/03/2022, Additional history exists CKD HGB USE SMARTSET 66183 07/05/202307/05, 06/12/2022, 06/12/2022, Additional history exists O2 ASSESSMENT COMPLETED IN PAST YEAR FOR COPD 07/06/2023 07/06/2022 Influenza Vaccine (FLU shot) (Season Ended) 2023 11/19/2021, 08/22/2019, 09/12/2018, Additional history exists [...] of this encounter Visit Diagnoses Diagnosis Chronic diastolic HF (heart failure) (HCC)- Primary Chronic diastolic heart failure Chronic right-sided heart failure (HCC) Congestive heart failure, unspecified Obesity hypoventilation syndrome (HCC) Obesity hypoventilation syndrome documented in this encounter Advance Directives Latest [...] 1:48 AM 03/06/2008 9:34 PM Care Teams Opener Relationship Specialty Start Date End Date Stephanie Dunn MD [address] [address] PCP - General Family Medicine 06/02/20 documented as of this encounter
--- NOTE | 2023-10-17 13:06 | History & Physical Report ---
Date of Service October 17, 2023 Assessment & Plan (1) Acute on chronic hypoxic respiratory failure: Plan: -Admit to med/tele on cont pulse oximetry -Currently stable on 5L blow by oxygen -At this time the patient's presentation is most consistent with acute CHF ex acerbation on top of her baseline chronic respiratory failure -Patient appears volume overloaded on exam, with cardiomegaly and pulmonary vascular congestion on CXR today -At this time it does not appear that she has an infectious etiology as her CXR is without consolidation, procal is negative, and full respiratory biofire is negative -Patient states that she has been taking her Spironolactone and torsemide as prescribed -Unsure if her weight today of 187 Kg is accurate as this would be an approximately 60 lb weight gain since last month -Will obtain TTE and consult [facility] to follow as she is a patient of Dr. Marley's -Will hold IV diuresis until echo and back and Cardiology evaluates -Incentive spirometry, flutter therapy, prn O2 to keep SpO2 at or above 94% -HS O2 at 5L -SQ lovenox for DVT PPX -HH/DMII diet with 1500 mL fluid restriction -AM CBC, BMP, mag, PT/INR (2) Elevated troponin: Plan: -Likely due to demand from CHF exacerbation -Rest of plan per chest tightness and acute hypoxic respirator failure (3) Chest tightness: Plan: -Her chest tightness is most likely due to her CHF exacerbation and musculoskeletal pain -Has been progressive over the past 1-2 weeks, is reproducible on palpation -Initial high sen trop elevated at 25 -->64-->79 so far -No acute ST segment or T-wave changes on ECG -Likely due to demand -S/P 324 mg Aspirin and nitroglycerine in by EMS in route -Follow TTE, Cards consult, continue to monitor on tele and trend high sen trop (4) Generalized weakness: Plan: -Likely multifactorial including progressive CHF and deconditioning on top of her baseline weakness -She has a mild leukocytosis of 12 -CXR is negative for pneumonia, negative abdominal exam, no signs of new wounds -Will obtain UA with reflex cultures as needed for possible UTI -Should be evaluated by PT/OT prior to discharge (5) Tracheostomy in place: Plan: -Continue routine tracheostomy care (6) Insulin-requiring or dependent type II diabetes mellitus: Plan: -Patient normally uses insulin pump but her current cartage is almost empty and did not bring refills -She is fine with basal/bolus while admitted -Pharmacy glycemic consult placed -HH/DMII diet (7) Fracture of distal end of right femur: Plan: -Has been a chronic issue and deemed inoperable by previous tertiary care centers (8) HTN (hypertension): Plan: -Stable -Monitor while on IV diuresis (9) Anxiety: Plan: -Continue sertraline and bupropion (10) Hypothyroidism (acquired): Plan: -Continue levothyroxine (11) Chronic pain: Plan: -Continue home fentanyl patch -PRN tylenol -PRN narcan for oversedation/respiratory depression Plan The patient was discussed with Dr. Smiley at the time of the admission History of Present Illness Chief Complaint: Fall, generalized weakness, SOB Primary Care Provider: Ofe Mcgee MD Whit is a 68yo Female with PMH morbid obesity with right femur fracture (non-operable) with chronic pain, nonambulatory status, tracheostomy dependent, COPD/chronic respiratory failure, HFrEF (LVEF of 45-50%), anxiety, DM2, GERD, CKD4, hypothyroidism, HTN, CAD who presented to the [facility] ED on 10/15 via EMS after sustaining a fall at home and recent generalized weakness. She was initially noted to be hypoxic at 87% on RA with a HR of 97 but otherwise stable. Labs were significant for a leukocytosis of 12 with neutrophile predominance of 10, lymphocyte count of 1.11, initial high sen trop of 25 with 2 hour repeat of 64, and negative full respiratory biofire. Chest xray was read as "Cardiomegaly with pulmonary vascular congestion. ". At the time of the exam the patient was sitting in bed in no acute distress with her caregiver sitting bedside, history was obtained from both. The patient and her caregiver explain that the patient has been experiencing progressive generalized weakness, increased tracheostomy secretions, and chest tightness. This am they were preparing for a PCP appointment, the patient is typically able to assist with transfers. This am she was too weak and fell forward while her caregiver was trying to get her to her wheelchair. Her caregiver was able to essentially lower her to the ground, but her legs did bend behind her per her caregiver. The patient denies any new pain since her fall, her chronic right hip pain is at baseline. The patient states that she has been experiencing substernal/left sided chest "tightness" over the past 2-3 weeks. It can be constant and intermittent, typically a 5/10, and has not been significantly relieved or exacerbated that she can recall. She denies any other radiation of the pain, lightheadedness, diaphoresis, or heart palpitations. The patient states that EMS gave her 4 baby aspirin, a dose of nitroglycerine, and a breathing treatment in route. These treatments mildly improved her symptoms but she is still experiencing a 5/10 chest tightness at the time of my arrival. They do not check her weight at home and she is unsure if she has gained weight recently. She has been taking her spironolactone and torsemide as prescribed. She uses prn O2 during the day and 5L oxygen HS. She is a full code and wishes for her daughter to make medical decisions for her if she cannot make them herself. Please refer to Dr. Smiley's attestation for any changes to the treatment plan Allergies Allergy/AdvReac Type Severity Reaction Status Date / Time Penicillins Allergy Intermediate Hives Verified 09/01/23 10:43 amitriptyline Allergy Unknown ON EMBASSY Verified 09/01/23 10:43 OF [facility]AR[facility]IDE MED LIST doxycycline Allergy Unknown ON EMBASSY Verified 09/01/23 10:43 OF [facility] MED LIST guaifenesin Allergy Unknown ON EMBASSY Verified 09/01/23 10:43 OF [facility]AR[facility]IDE MED LIST metformin Allergy Unknown ON EMBASSY Verified 09/01/23 10:43 OF HEAR[facility]IDE MED LIST phenylephrine Allergy Unknown ON EMBASSY Verified 09/01/23 10:43 OF [facility] MED LIST pseudoephedrine Allergy Unknown ON EMBASSY Verified 09/01/23 10:43 OF [facility] MED LIST tetracycline Allergy Unknown ON EMBASSY Verified 09/01/23 10:43 OF [facility]AR[facility]SIDE MED LIST venlafaxine [From Effexor] Allergy Unknown ON EMBASSY Verified 09/01/23 10:43 OF [facility]AR[facility]SIDE MED LIST gabapentin AdvReac Intermediate BECOMES Verified 09/01/23 10:43 AGGRESSIVE Home Medications Medication Instructions Recorded Confirmed Type aspirin 81 mg tablet,delayed 81 mg PO QAM #30 tabs 04/06/23 10/17/23 Rx release (Robert Low Dose Aspirin) atorvastatin 40 mg tablet 40 mg PO QPM #30 tabs 04/06/23 10/17/23 Rx azithromycin 250 mg tablet 250 mg PO MoWeFr@0900 #12 tabs 04/06/23 10/17/23 Rx bupropion HCl 100 mg tablet,12 hr 200 mg (2 x 100 mg) PO PM #90 ea 04/06/23 10/17/23 Rx sustained-release diclofenac sodium 1 % topical gel 4 g EXT QID #30 grams 04/06/23 10/17/23 Rx (Voltaren Arthritis Pain) folic acid 1 mg tablet 1 mg PO QAM #30 tabs 04/06/23 10/17/23 Rx ipratropium 0.5 mg-albuterol 3 mg 3 ml inhalation Q4H PRN COUGHING, 04/06/23 10/17/23 Rx (2.5 mg base)/3 mL nebulization WHEEZING, SHORTNESS OF BREATH #180 soln mL ipratropium 20 mcg-albuterol 100 1 puff inhalation QID #4 grams 04/06/23 10/17/23 Rx mcg/actuation mist for inhalation (Combivent Respimat) isosorbide mononitrate 30 mg 30 mg PO QAM #30 tabs 04/06/23 10/17/23 Rx tablet,extended release 24 hr levothyroxine 200 mcg tablet 200 mcg PO DAILYBB #30 tabs 04/06/23 10/17/23 Rx levothyroxine 25 mcg tablet 25 mcg PO DAILYBB #30 tabs 04/06/23 10/17/23 Rx magnesium oxide 400 mg PO QAM #30 tabs 04/06/23 10/17/23 Rx melatonin 3 mg tablet 6 mg (2 x 3 mg) PO HS #60 tabs 04/06/23 10/17/23 Rx metoprolol tartrate 25 mg tablet 12.5 mg (1/2 x 25 mg) PO BID #30 04/06/23 10/17/23 Rx tabs multivitamin 1 tab PO QAM #30 tabs 04/06/23 10/17/23 Rx nitroglycerin 0.4 mg sublingual 0.4 mg sublingual DIRECTED PRN 04/06/23 10/17/23 Rx tablet Chest Pain #25 tabs pantoprazole 40 mg tablet,delayed 40 mg PO DAILYBB #30 tabs 04/06/23 10/17/23 Rx release potassium chloride 20 mEq 20 meq PO BID #60 tabs 04/06/23 10/17/23 Rx tablet,extended release sertraline 50 mg tablet 50 mg PO QAM #30 tabs 04/06/23 10/17/23 Rx spironolactone 25 mg tablet 25 mg PO QAM #30 tabs 04/06/23 10/17/23 Rx topiramate 100 mg tablet 100 mg PO QAM #30 tabs 04/06/23 10/17/23 Rx torsemide 10 mg tablet See Rx Instructions PO BID 07/08/23 10/17/23 History blood sugar diagnostic (OneTouch #300 ea 07/21/23 09/01/23 Rx Ultra Test strips) blood-glucose meter (OneTouch #1 ea 07/21/23 09/01/23 Rx Ultra2 Meter) insulin aspart U-100 100 unit/mL 170 unit (1.7 mL) subcut DAILY #4 08/26/23 10/17/23 Rx (3 mL) subcutaneous pen (Novolog syringes FlexPen U-100 Insulin aspart) insulin aspart U-100 100 unit/mL See Rx Instructions .Route DAILY 08/26/23 10/17/23 Rx subcutaneous solution (Novolog #9 vials U-100 Insulin aspart) pen needle, diabetic 32 gauge x #150 ea 08/26/23 09/01/23 Rx 5/32" (BD Kaitlin 2nd Gen Pen Needle) pen needle, diabetic 32 gauge x #50 ea 08/26/23 09/01/23 Rx 5/32" (BD Kaitlin 2nd Gen Pen Needle) empagliflozin 10 mg tablet 10 mg PO DAILY #30 tabs 10/07/23 10/17/23 Rx (Jardiance) fentanyl 12 mcg/hr transdermal 12 mcg transdermal Q72H 10/17/23 10/17/23 History patch Past Med/Surg History Medical History (Updated 10/17/23 @ 18:57 by Wagner Perez PA-C) Hypothyroidism (acquired) Ureterolithiasis CKD (chronic kidney disease) Vitamin D deficiency Adjustment disorder with depressed mood Chronic kidney disease, stage 3 Tinea unguium Cellulitis Atypical chest pain SOB (shortness of breath) CKD stage 4 due to type 2 diabetes mellitus GERD (gastroesophageal reflux disease) Ambulatory dysfunction Breathlessness Chest pain Fluid overload Insulin-requiring or dependent type II diabetes mellitus Anxiety Chronic obstructive pulmonary disease Coronary artery disease Tracheostomy dependence Type 2 diabetes mellitus Morbid obesity with BMI of 60.0-69.9, adult RASHAAD (obstructive sleep apnea) CHF (congestive heart failure) Right ventricular dysfunction Sepsis MRSA (methicillin resistant staph aureus) culture positive "sputum 11/2015" HTN (hypertension) Dyslipidemia Surgical History History of hysterectomy S/P IVC filter History of tonsillectomy and adenoidectomy History of cholecystectomy History of appendectomy Family History Mother Coronary heart disease COPD (chronic obstructive pulmonary disease) Father Suicide Hung himself. Pt found him. Unknown Lung cancer Social History Smoking Status: Never smoker Tobacco Type: Cigarettes Second Hand Exposure: No; Do You Dip or Chew Tobacco: No; Tobacco Cessation Education Requested by Patient: No Hx Alcohol Use: No Hx Substance Use: No Preferred Language: Barbadian Communication Ability: Effective Visual Impairment: Limited [employer] Chief Required: No Beliefs That Will Affect Care: None marital status: Current Living Situation: Family Current Living Situation Comment: with daughter current occupational status: disabled How many Children do You have: 1 Other Information That Helps Us Care for You: No Feels Safe at Home: Yes Safety Concerns: Feels Safe At This Time Assistive Devices: Glasses, Oxygen - at Night and Wheelchair Assistive Devices Comment: Can no longer ambulate Physical Exam Physical Exam: Physical Exam: General: In no acute distress, stated age, chronically ill appearing but non- toxic HEENT: Normocephalic, atraumatic, no scleral icterus, pupils around round, symmetrical, and reactive to light, moist mucus membranes, trachea midline, no thyromegaly Chest/Pulm: No respiratory distress, lung exam difficult to perform due to body habitus, decreased breaths sounds in the BL lower and mid lungs Cardiac: RRR, no murmurs noted Abdomen: Negative for ascites and bruising, normoactive bowel sounds, soft, non-tender to palpation throughout Musculoskeletal: No acute trauma in the head, neck, abdomen, BL hips, and BL knees/feet, patient with chronic pain in the right hip which is at baseline Extremities: Radial, dorsalis pedis, and posterior tibial pulses are intact and symmetrical, moderate edema noted in the BL LE's Skin: Warm, dry, no rashes , lesions, or scars noted Neuro: Alert and oriented to person, place, month, year, and president, no focal defects, no tremors noted Psych: No acute distress, calm and cooperative during the exam Results & Data Results & Data Vital Signs (Past 12 Hours) Vital Signs Temp Pulse Pulse Resp BP BP Pulse Ox 10/17/23 12:44 92 H 20 142/73 H 90 10/17/23 11:48 92 H 18 137/71 93 10/17/23 10:50 95 10/17/23 10:43 36.8 C 97 H 22 112/64 87 L 10/17/23 10:36 97 H 10/17/23 10:23 O2 Del Method O2 Flow Rate 10/17/23 12:44 Trach Collar 6 10/17/23 11:48 Trach Collar 6 10/17/23 10:50 Room Air, Trach Collar 87 10/17/23 10:43 Room Air 10/17/23 10:36 10/17/23 10:23 Room Air Laboratory Results Abnormal lab results 10/17/23 10/17/23 10/17/23 Range/Units 10:08 11:57 14:10 WBC 12.52 H (4.8-10.8) K/ul Hgb 11.8 L (12.0-16.0) g/dl MCHC 28.0 L (32.0-36.0) g/dL RDW Std Deviation 56.3 H (36.4-46.3) fL RDW Coeff of Amee 16.5 H (11.5-14.5) % MPV 9.3 L (9.4-12.4) fL Neut # (Auto) 10.29 H (1.40-6.50) K/uL Lymph # (Auto) 1.11 L (1.20-3.40) K/uL [place] # (Auto) 0.83 H (0.11-0.59) K/uL Creatinine 1.41 H (0.6-1.2) mg/dl Glucose 197 H (70-99(Fasting)) mg/dl Troponin I High Sens 25.9 H 64.1 H* D 79.4 H* D (0-14) pg/ml Diagnostic Findings Chest X-Ray 10/17/23 10:07 XR chest 1V portable HISTORY: 68 years-old Female shortness of breath acute shortness of breath COMPARISON: Chest 03/07/2023 TECHNIQUE: AP view of the chest FINDINGS: Cardiac silhouette is enlarged. Pulmonary vascular congestion. Unchanged positioning of the tracheostomy cannula. No pneumothorax, large pleural effusion or lobar airspace consolidation. IMPRESSION: Cardiomegaly with pulmonary vascular congestion. ACT 112: Negative or not required by law. The above report was generated using voice recognition software. It may contain grammatical, syntax or spelling errors. Electronically signed by: Robbie Henderson M.D. 10/17/2023 10:26 AM ECG Additional Comments: Sinus rhythm with 1st degree A-V block with frequent Premature ventricular complexes Left axis deviation Right bundle branch block Possible Lateral infarct , age undetermined Abnormal ECG When compared with ECG of 24-JAN-2023 13:01, P remature ventricular complexes are now Present Borderline criteria for Lateral infarct are now Present Code Status & VTE Plan Code Status Full code VTE Prophylaxis Plan VTE Prophylaxis will be ordered: Yes Supervising Physician Co-Signing Physician Notes Patient seen and examined, chart reviewed, case discussed with Wagner Perez PA-C and I agree with the assessment and plan as above except as otherwise noted Labs and images reviewed Whit is a 68-year-old female with a complex past medical history including morbid obesity, trach dependence intermittently on oxygen as needed, right inop erable femur fracture with chronic pain, COPD, heart failure with EF 45 to 50%, DM 2, GERD, CKD, hypothyroidism, hypertension, CAD who presented after a fall at home with generalized weakness and increased oxygen requirements. She was initially hypoxic to 87% on room air with a negative BioFire and mild leukocytosis without left shift but with neutrophilic predominance. Chest x-ray suggest pulmonary vascular congestion. Patient was noted to have an elevated troponin which up trended on repeat and was chest pain free on assessment. Patient is not able to undergo further restratification in the setting of suspected acute CHF exacerbation and was therefore recommended for admission and medical optimization with further cardiac monitoring and evaluation. BNP is pending. She is significantly above her baseline weight previously 158.7 at last discharge, 186.2 by bed weight on admission. Troponin of 25 up trended to 64, EKG remains with old right bundle branch block and first-degree AV block. Whit is within her normal baseline range of approximately 1.381.6. Payne catheter was placed, patient was ordered Lasix IV, troponin was trended, limited echo for wall motion change is pending. She is seen at the bedside, feels like she is improving after receiving Lasix but is still not at baseline initially short of breath. Denies chest pain at time of bedside assessment. Continue strict HUMBERTO's and Payne. Continue Lasix twice daily, goal net output 12L daily. Agree with assessment and management above PG Care Time/CCT Total # of Minutes Spent Total Time Spent with Patient: Total time spent is greater than 50% in coordination of care (as documented) at patient's floor/unit and/or counseling patient: [place] [address] INT INP/OBS CARE 2/55MIN Patient Type Established Medical Decision Making Moderate Complexity Diagnoses Acute on chronic hypoxic respiratory failure J96.21 Elevated troponin R79.89 Chest tightness R07.89 Generalized weakness R53.[address] Z93.0 Insulin-requiring or dependent type II diabetes mellitus E11.9; Z79.4 Fracture of distal end of right femur S72.401A HTN (hypertension) I10 Anxiety F41.9 Hypothyroidism (acquired) E03.9 Chronic pain G89.29
[2023-10-17] MEDS ORDERED: GLUCOSE 40% GEL 15 GM TUBE PO PRN (14:07)
[2023-10-17] MEDS ORDERED: GLUCAGON FOR INJ 1 MG VIAL SQ PRN (14:07)
[2023-10-17] MEDS ORDERED: PHARMACY GLYCEMIC MGMT CONSULT PRN (14:07)
[2023-10-17] MEDS ORDERED: GLUCOSE 10 TAB/TUBE PO PRN (14:07)
[2023-10-17] MEDS ORDERED: DEXTROSE 50% 50 ML SYRINGE IV PRN (14:07)
[2023-10-17] MEDS ORDERED: CARBOHYDRATES FOR HYPOGLYCEMIA PO PRN (14:07)
[2023-10-17] MEDS ORDERED: LIDOCAINE 5% 1 PATCH TD STA (14:19)
--- NOTE | 2023-10-17 14:32 | Cardiology Consultation ---
Date of Consultation October 17, 2023 Assessment & Plan (1) Acute on chronic combined systolic (congestive) and diastolic (congestive) heart failure: (2) Right heart failure: (3) Obesity hypoventilation syndrome: (4) Chronic hypoxic respiratory failure: (5) Tracheostomy in place: Plan IMPRESSION: Medically complex 68 year old female who presented to [facility] ED due to a fall from progressive weakness at home. Found to be in acute on chronic combined CHF + RHF. Patient has chronic hypoxic respiratory failure with a tracheostomy. Shortness of breath likely multifactorial due to underlying pulmonary disease with superimposed acute on chronic combined CHF. CHF: Patient appears hypervolemic on exam-- weight gain of at least 10-15 lbs. Agree with Payne placement for strict I&O. Start Lasix 40 mg daily. For now hold Aldactone and Jardiance Monitor renal function and electrolytes with daily BMP. K goal of 4.0 and mag goal of 2.0-- replace as needed. Continue GDMT-- Restart home dose metoprolol tartrate 12.5 mg BID-- consider transitioning to succinate formulary pending clinical course. Continue Lisinopril 2.5 mg daily and Imdur 30 mg dialy. Chronic hypoxic respiratory failure: Supportive measures per primary team. Agree with Duonebs as needed. Case discussed with Dr. Mendoza. I spent a total of 40 minutes on the date of service in preparation, delivery, and documentation of the care provided to this patient, excluding any time spent in the performance of separately billed services. Supervising Physician Co-Signing Physician Notes 68-year-old female presented to the emergency department after falling out of her wheelchair. Describes progressive shortness of breath, weight gain, edema, abdominal bloating over the past 3 weeks. Compliant with daily torsemide. Notes intermittent chest heaviness associated with breathing. No palpitations, lightheadedness, dizziness, syncope, or near syncope. Patient wheelchair-bound with chronic right femoral fracture for more than 1 year. PE: VSS. Gen: NAD, AAOx3. Heart: Regular rhythm, normal S1-S2. Distant heart sounds. No murmur. Pulmonary: Diminished breath sounds bilaterally, fine Rales at the bases. Abdomen: Pitting edema involving pannus. No tenderness, rebound, or guarding. Extremities: 1+ bilateral pretibial edema with mild erythema. 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 Patient appears volume overloaded. Initiate IV furosemide 40 mg twice daily. Monitor daily weight, fluid balance, GFR, and electrolytes. Continue metoprolol, lisinopril, and isosorbide monohydrate. Patient chronically treated with Aldactone 25 mg daily. Will order for a.m. I spent a total of 30 minutes on the date of service in preparation, delivery, and documentation of the care provided to this patient, excluding any time spent in the performance of separately billed services. History of Present Illness Reason for Consultation: Acute on chronic CHF Requesting Physician: Fidelia manriquez History of Present Illness 68-year-old female who initially presented to [facility] emergency department following a fall at home while transferring to her wheel chair. Patient notes worsening shortness of breath, lower extremity edema, and weakness over the last 3 weeks. Denied any missed medications recently. Also noting occasional chest tightness with deep inspiration-- treated with SL nitro and ASA by EMS. No currently having chest tightness during exam. Found to be hypoxic on room air at 87%. Per the patient she normally wears 4-5 L at home. Treated with IV nebulizer in the emergency department with improvement in her shortness of breath. Chest x-ray revealed pulmonary vascular congestion. Significant weight gain noted, 186 kg by bed weight this admission. Previously 158.7 kg last documented weight-- however, I am not sure of the accuracy of this number when observing the trend. Patient does not weigh at home. Payne cath to be placed and started on IV Lasix. Feeling mildly improved. Labs: Renal function and electrolytes stable. BNP pending. High-sensitivity troponin elevated (25.9>>64.1) Limited echocardiogram: pending. Prior Echo 09/2022 with mildly reduced LV systolic function of 45 to 50% with mild global hypokinesis. Imaging was technically limited due to body habitus. Tele: NSR with IVCD and Frequent PVCs, average rates in the 80s. EKG: NSR with 1st degree AVB, RBBB with frequent PVCs, 92 bpm. 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 Marley Past medical history: Coronary artery disease Chronic combined systolic and diastolic heart failure Right heart failure Hypertension Obesity hypoventilation syndrome Dyslipidemia Type 2 diabetes GERD CKD stage IV COPD/chronic hypoxic respiratory failure, tracheostomy dependent Outpatient cardiac medications per epic: Jardiance 10 mg daily Torsemide 10 mg daily Spironolactone 25 mg daily Lisinopril 2.5 mg daily Atorvastatin 40 mg daily Metoprolol tartrate 1212.5 mg twice daily Aspirin 81 mg daily Allergies Allergy/AdvReac Type Severity Reaction Status Date / Time Penicillins Allergy Intermediate Hives Verified 09/01/23 10:43 amitriptyline Allergy Unknown ON EMBASSY Verified 09/01/23 10:43 OF HEARTHSIDE MED LIST doxycycline Allergy Unknown ON EMBASSY Verified 09/01/23 10:43 OF HEARTHSIDE MED LIST guaifenesin Allergy Unknown ON EMBASSY Verified 09/01/23 10:43 OF HEARTHSIDE MED LIST metformin Allergy Unknown ON EMBASSY Verified 09/01/23 10:43 OF HEARTHSIDE MED LIST phenylephrine Allergy Unknown ON EMBASSY Verified 09/01/23 10:43 OF HEARTHSIDE MED LIST pseudoephedrine Allergy Unknown ON EMBASSY Verified 09/01/23 10:43 OF HEARTHSIDE MED LIST tetracycline Allergy Unknown ON EMBASSY Verified 09/01/23 10:43 OF HEARTHSIDE MED LIST venlafaxine [From Effexor] Allergy Unknown ON EMBASSY Verified 09/01/23 10:43 OF HEARTHSIDE MED LIST gabapentin AdvReac Intermediate BECOMES Verified 09/01/23 10:43 AGGRESSIVE Home Medications Medication Instructions Recorded Confirmed Type aspirin 81 mg tablet,delayed 81 mg PO QAM #30 tabs 04/06/23 10/17/23 Rx release (Robert Low Dose Aspirin) atorvastatin 40 mg tablet 40 mg PO QPM #30 tabs 04/06/23 10/17/23 Rx azithromycin 250 mg tablet 250 mg PO MoWeFr@0900 #12 tabs 04/06/23 10/17/23 Rx bupropion HCl 100 mg tablet,12 hr 200 mg (2 x 100 mg) PO PM #90 ea 04/06/23 10/17/23 Rx sustained-release diclofenac sodium 1 % topical gel 4 g EXT QID #30 grams 04/06/23 10/17/23 Rx (Voltaren Arthritis Pain) folic acid 1 mg tablet 1 mg PO QAM #30 tabs 04/06/23 10/17/23 Rx ipratropium 0.5 mg-albuterol 3 mg 3 ml inhalation Q4H PRN COUGHING, 04/06/23 10/17/23 Rx (2.5 mg base)/3 mL nebulization WHEEZING, SHORTNESS OF BREATH #180 soln mL ipratropium 20 mcg-albuterol 100 1 puff inhalation QID #4 grams 04/06/23 10/17/23 Rx mcg/actuation mist for inhalation (Combivent Respimat) isosorbide mononitrate 30 mg 30 mg PO QAM #30 tabs 04/06/23 10/17/23 Rx tablet,extended release 24 hr levothyroxine 200 mcg tablet 200 mcg PO DAILYBB #30 tabs 04/06/23 10/17/23 Rx levothyroxine 25 mcg tablet 25 mcg PO DAILYBB #30 tabs 04/06/23 10/17/23 Rx magnesium oxide 400 mg PO QAM #30 tabs 04/06/23 10/17/23 Rx melatonin 3 mg tablet 6 mg (2 x 3 mg) PO HS #60 tabs 04/06/23 10/17/23 Rx metoprolol tartrate 25 mg tablet 12.5 mg (1/2 x 25 mg) PO BID #30 04/06/23 10/17/23 Rx tabs multivitamin 1 tab PO QAM #30 tabs 04/06/23 10/17/23 Rx nitroglycerin 0.4 mg sublingual 0.4 mg sublingual DIRECTED PRN 04/06/23 10/17/23 Rx tablet Chest Pain #25 tabs pantoprazole 40 mg tablet,delayed 40 mg PO DAILYBB #30 tabs 04/06/23 10/17/23 Rx release potassium chloride 20 mEq 20 meq PO BID #60 tabs 04/06/23 10/17/23 Rx tablet,extended release sertraline 50 mg tablet 50 mg PO QAM #30 tabs 04/06/23 10/17/23 Rx spironolactone 25 mg tablet 25 mg PO QAM #30 tabs 04/06/23 10/17/23 Rx topiramate 100 mg tablet 100 mg PO QAM #30 tabs 04/06/23 10/17/23 Rx torsemide 10 mg tablet See Rx Instructions PO BID 07/08/23 10/17/23 History blood sugar diagnostic (OneTouch #300 ea 07/21/23 09/01/23 Rx Ultra Test strips) blood-glucose meter (OneTouch #1 ea 07/21/23 09/01/23 Rx Ultra2 Meter) insulin aspart U-100 100 unit/mL 170 unit (1.7 mL) subcut DAILY #4 08/26/23 10/17/23 Rx (3 mL) subcutaneous pen (Novolog syringes FlexPen U-100 Insulin aspart) insulin aspart U-100 100 unit/mL See Rx Instructions .Route DAILY 08/26/23 10/17/23 Rx subcutaneous solution (Novolog #9 vials U-100 Insulin aspart) pen needle, diabetic 32 gauge x #150 ea 08/26/23 09/01/23 Rx 5/32" (BD Kaitlin 2nd Gen Pen Needle) pen needle, diabetic 32 gauge x #50 ea 08/26/23 09/01/23 Rx 5/32" (BD Kaitlin 2nd Gen Pen Needle) empagliflozin 10 mg tablet 10 mg PO DAILY #30 tabs 10/07/23 10/17/23 Rx (Jardiance) fentanyl 12 mcg/hr transdermal 12 mcg transdermal Q72H 10/17/23 10/17/23 History patch Patient History Medical History Adjustment disorder with depressed mood Ambulatory dysfunction Anxiety Atypical chest pain Breathlessness Cellulitis Chest pain CHF (congestive heart failure) Chronic kidney disease, stage 3 Chronic obstructive pulmonary disease CKD (chronic kidney disease) CKD stage 4 due to type 2 diabetes mellitus Coronary artery disease Dyslipidemia Fluid overload GERD (gastroesophageal reflux disease) HTN (hypertension) Hypothyroidism (acquired) Insulin-requiring or dependent type II diabetes mellitus Morbid obesity with BMI of 60.0-69.9, adult MRSA (methicillin resistant staph aureus) culture positive "sputum 11/2015" RASHAAD (obstructive sleep apnea) Right ventricular dysfunction Sepsis SOB (shortness of breath) Tinea unguium Tracheostomy dependence Type 2 diabetes mellitus Ureterolithiasis Vitamin D deficiency Surgical History History of appendectomy History of cholecystectomy History of hysterectomy History of tonsillectomy and adenoidectomy S/P IVC filter Family History Mother Coronary heart disease COPD (chronic obstructive pulmonary disease) Father Suicide Hung himself. Pt found him. Unknown Lung cancer Social History Smoking Status: Never smoker Tobacco Type: Cigarettes Second Hand Exposure: No; Do You Dip or Chew Tobacco: No; Hx Alcohol Use: No Hx Substance Use: No Preferred Language: Namibian Communication Ability: Effective Visual Impairment: Limited Electrical Installation Supervisor Required: No Beliefs That Will Affect Care: None marital status: Current Living Situation: Other Current Living Situation Comment: Lives with daughter Daniel current occupational status: disabled How many Children do You have: 1 Feels Safe at Home: Yes Assistive Devices: Bedside Commode, Walker and Wheelchair Review of Systems Review of Systems: All systems reviewed & are unremarkable except as noted in HPI & below Physical Exam Constitutional: + ill appearing and + morbidly obese; no acute distress Neck: normal visual inspection (Tracheostomy present ) and + thick neck Respiratory: + cough and + tachypneic; no respiratory distress Auscultation: + rales and + wheezes Cardiovascular: Rate/Rhythm: regular rate and regular rhythm Heart Sounds: normal S1 and normal S2; no murmur Vessels: + JVD (unable to assess due to body habitis ) Extremities: + edema (+3 BLLE pitting edema ) Psychiatric: Orientation: alert and oriented x 3 Results & Data Vital Signs (Past 12 Hours) Vital Signs Temp Pulse Pulse Resp BP BP Pulse Ox 10/17/23 12:44 92 H 20 142/73 H 90 10/17/23 11:48 92 H 18 137/71 93 10/17/23 10:50 95 10/17/23 10:43 36.8 C 97 H 22 112/64 87 L 10/17/23 10:36 97 H 10/17/23 10:23 O2 Del Method O2 Flow Rate 10/17/23 12:44 Trach Collar 6 10/17/23 11:48 Trach Collar 6 10/17/23 10:50 Room Air, Trach Collar 87 10/17/23 10:43 Room Air 10/17/23 10:36 10/17/23 10:23 Room Air Laboratory Results Cardiac Enzymes 10/17/23 10/17/23 10/17/23 Range/Units 10:08 11:57 14:10 Troponin I High Sens 25.9 H 64.1 H* D 79.4 H* D (0-14) pg/ml B-Natriuretic Peptide 87 (0-100) pg/ml Coagulation 10/17/23 Range/Units 14:10 B-Natriuretic Peptide 87 (0-100) pg/ml CBC 10/17/23 Range/Units 10:08 WBC 12.52 H (4.8-10.8) K/ul RBC 4.55 (4.20-5.40) M/uL Hgb 11.8 L (12.0-16.0) g/dl Hct 42.2 (37.0-47.0) % Plt Count 232 (130-400) K/uL Neut # (Auto) 10.29 H (1.40-6.50) K/uL Lymph # (Auto) 1.11 L (1.20-3.40) K/uL Price # (Auto) 0.83 H (0.11-0.59) K/uL Eos # (Auto) 0.15 (0.00-0.50) K/uL Baso # (Auto) 0.05 (0.00-0.20) K/uL Comprehensive Metabolic Panel 10/17/23 Range/Units 10:08 Sodium 139 (136-145) mmol/L Potassium 4.2 (3.5-5.1) mmol/L Chloride 106 (98-107) mmol/L Carbon Dioxide 26 (21-32) mmol/L BUN 19 (6-23) mg/dl Creatinine 1.41 H (0.6-1.2) mg/dl Glucose 197 H (70-99(Fasting)) mg/dl Calcium 8.9 (8.6-10.3) mg/dl Intake and Output 10/17/23 10/17/23 10/17/23 06:59 14:59 22:59 Other: Weight 186.2 kg Weight Measurement Method Built in [facility] Patient Weight 10/18/23 06:59 Weight 186.2 kg (2) Right heart failure Heart failure chronicity: acute on chronic Qualified Code(s): I50.813 - Acute on chronic right heart failure
[2023-10-17] MEDS ORDERED: INSULIN ASPART PER UNIT CHARGE SC SCH (15:00)
[2023-10-17] MEDS: LANTUS PER UNIT CHARGE SQ SCH (15:17)
--- NOTE | 2023-10-17 15:18 | Pharmacy Report ---
Pharmacy Glycemic Short Note 2 - Date of Service October 17, 2023 - Glycemic Short BSG Results (Last 24 hours): 10/17/23 10:08 Glucose 197 H OUTPATIENT ANTIDIABETIC REGIMEN: * HbA1c 7.0% 03/29/23, 11/17/23 pending * Novolog pump setting per CDE note (08/25/23) * Basal insulin 127 units * Correction Factor (8987-1182 10, 1193-8519 17) * Carbohydrate Ratio (6246-9418 2, 8007-2628 3) ASSESSMENT: * Whit is a 68 YOF admitted with shortness of breath and a history of T2DM. Pharmacy has been consulted for glycemic management while inpatient. Discussed plan with Wagner Perez, PAC. Currently NPO, plan to transition to SC insulin due to patient being out of supplies. * Will give 50 units of Lantus now and transition off of the insulin pump. Previously has required 70 units of Lantus BID while admitted. * Start Novolog parameters looser than previous admissions as below. PLAN FOR INPATIENT GLYCEMIC CONTROL: * Remove insulin pump and transition to SC insulin * Basal insulin * Lantus 50 units SC now, reassess basal in AM * Bolus insulin * NovoLog per scale ACHS or Q4hrs while NPO * Goal Range: Low 110 mg/dL - High 140 mg/dL * Correction Factor: 8 mg/dL/unit * Nutritional / Prandial insulin per carb ratio of 1 unit per 2 grams CHO consumed
[2023-10-17] MEDS ORDERED: FUROSEMIDE 40 MG/4 ML VIAL IV SCH (15:30)
[2023-10-17] MEDS: INSULIN ASPART PER UNIT CHARGE SC SCH ×2 (15:38→20:52)
[2023-10-17] MEDS ORDERED: ENOXAPARIN 100 MG/1ML SYR SQ SCH (16:19)
[2023-10-17] MEDS ORDERED: FUROSEMIDE 40 MG/4 ML VIAL IV ONE (16:32)
[2023-10-17] MEDS ORDERED: PNEUMOCOCCAL VACCINE (PCV20) 20-VAL CONJ-DIP CRM/PF 0.5 ML SYR IM ONE (16:49)
[2023-10-17] MEDS ORDERED: IPRATROPIUM BROMIDE/ALBUTEROL respimat INH INH SCH (17:00)
[2023-10-17] MEDS ORDERED: CHECK fentaNYL PATCH PLACEMENT SCH ×2 (17:15)
[2023-10-17] MEDS: ALBUT/IPRATROP 3MG/0.5MG NEB 3 ML VIAL INH PRN (17:22)
[2023-10-17] MEDS: FUROSEMIDE 40 MG/4 ML VIAL IV SCH (18:43)
[2023-10-17] MEDS ORDERED: NALOXONE HCL 0.4 MG/1 ML VIAL/CARP IV PRN (18:57)
[2023-10-17 19:32] LABS: Appearance Urine Clear (Clear); Bacteria Urine Automated Negative (Negative); Bilirubin Urine Negative (Negative); Blood Urine Negative (Negative); Color Urine Yellow; Epithelial Cell Urine Auto 20-30 /lpf (0-5); Glucose Urine UA 2+ (Negative); Ketones Urine Negative (Negative); Leukocyte Esterase Urine Negative (Negative); Nitrite Urine Negative (Negative); Protein Urine 1+ (Negative); RBC Urine Automated 0-4 /hpf (0-4); Specific Gravity Urine 1.022 (1.000-1.030); Urobilinogen Urine Negative (Negative); pH Urine 6.5 (4.5-7.5)
--- NOTE | 2023-10-17 19:47 | Electrocardiogram Report ---
Test Reason : Blood Pressure : / mmHG Vent. Rate : 092 BPM Atrial Rate : 092 BPM P-R Int : 222 ms QRS Dur : 130 ms QT Int : 388 ms P-R-T Axes : 077 -43 020 degrees QTc Int : 479 ms Sinus rhythm with 1st degree A-V block with frequent Premature ventricular complexes Left axis deviation Right bundle branch block Possible Lateral infarct , age undetermined Abnormal ECG When compared with ECG of 24-JAN-2023 13:01, Premature ventricular complexes are now Present Borderline criteria for Lateral infarct are now Present Confirmed by Rahul Quiroz ([id number]) on 10/17/2023 7:47:02 PM Referred By: REFERRED SELF Confirmed By:Mike Quiroz
[2023-10-17] MEDS: fentaNYL 12 MCG/HR TDSY TD SCH (20:03)
[2023-10-17] MEDS: Ipratropium HFA Inhaler (Combivent Respimat P&T Subs) INH SCH (20:18)
[2023-10-17] MEDS: Albuterol HFA 8 GM Inhaler (Combivent Respimat P&T Subs) INH SCH (20:18)
[2023-10-17] MEDS: MELATONIN 3 MG TAB PO SCH (21:27)
[2023-10-17] MEDS: buPROPion SR 100 MG TABCR PO SCH (21:27)
[2023-10-17] MEDS: METOPROLOL TARTRATE 25 MG TAB PO SCH (21:27)
[2023-10-17] MEDS: POTASSIUM CHLORIDE CRTAB 20 MEQ TABCR PO SCH (21:27)
[2023-10-17] MEDS: ATORVASTATIN 40 MG TAB PO SCH (21:27)
[2023-10-17] MEDS ORDERED: ACETAMINOPHEN 500 MG TAB PO STA (23:43)
[2023-10-18] MEDS: ALBUT/IPRATROP 3MG/0.5MG NEB 3 ML VIAL INH PRN (00:40)
[2023-10-18] MEDS: CHECK fentaNYL PATCH PLACEMENT SCH ×3 (01:27→15:04)
[2023-10-18] MEDS: INSULIN ASPART PER UNIT CHARGE SC SCH ×7 (01:27→20:28)
[2023-10-18 02:46] LABS: Calcium 8.6 mg/dl (8.6-10.3); Creatinine Clr Calc Pharmacy 61.5 ml/min; Est GFR (African American) 42.4 ml/min; Est GFR (Non-African American) 36.6 ml/min; Magnesium 1.8 mg/dl (1.7-2.4); Potassium 4.2 mmol/L (3.5-5.1)
[2023-10-18 02:49] LABS: Basophils # (auto) 0.04 K/uL (0.00-0.20); Basophils % (auto) 0.4 %; Eosinophils # (auto) 0.17 K/uL (0.00-0.50); Eosinophils % (auto) 1.5 %; Hematocrit (blood only) 38.9 % (37.0-47.0); Hemoglobin 11.1 g/dl (12.0-16.0); Hypochromasia Present; Immature Granulocytes # (auto) 0.06 K/uL (0.01-0.20); Immature Granulocytes % (auto) 0.5 %; Lymphocytes % (auto) 14.6 %; Mean Corpuscular Hemoglobin 26.1 pg (25.0-34.0); Mean Corpuscular Hgb Conc 28.5 g/dL (32.0-36.0); Mean Corpuscular Volume 91.3 fL (80.0-100.0); Mean Platelet Volume 9.1 fL (9.4-12.4); Monocytes # (auto) 0.96 K/uL (0.11-0.59); Monocytes % (auto) 8.7 %; Neutrophils # (auto) 8.16 K/uL (1.40-6.50); Neutrophils % (auto) 74.3 %; Platelet Count 201 K/uL (130-400); RDW Coefficient of Variation 16.4 % (11.5-14.5); RDW Standard Deviation 54.9 fL (36.4-46.3); Red Blood Count 4.26 M/uL (4.20-5.40); White Blood Count 10.99 K/ul (4.8-10.8)
[2023-10-18] MEDS: PANTOprazole 40 MG TAB PO SCH (05:37)
[2023-10-18 07:23] LABS: Estimated Average Glucose 151 mg/dl; Hemoglobin A1C 6.9 % (4.5-5.6)
[2023-10-18] MEDS: LEVOTHYROXINE SODIUM 75 MCG TABLET PO SCH (07:28)
[2023-10-18] MEDS: Ipratropium HFA Inhaler (Combivent Respimat P&T Subs) INH SCH ×4 (07:36→20:07)
[2023-10-18] MEDS: Albuterol HFA 8 GM Inhaler (Combivent Respimat P&T Subs) INH SCH ×4 (07:36→20:07)
--- NOTE | 2023-10-18 08:21 | Hospitalist Progress Note ---
Date of Service October 18, 2023 Assessment & Plan (1) Acute on chronic hypoxic respiratory failure: Plan: -secondary to acute on chronic systolic and diastolic heart failure plus obesity hypoventilation syndrome due to morbid obesity chronic tracheostomy in place -Currently stable on 6L blow by oxygen via trache collar -At this time it does not appear that she has an infectious etiology as her CXR is without consolidation, procal is negative, and full respiratory biofire is negative denies medical non compliance, has increased weight from past most likely this can be consider chronic lung disease exacerbated by acute diastolic heart failure at this time -follows with [facility] cardiogy, reviewed echo no RWMA, restarted on diuresis -SQ lovenox for DVT PPX -HH/DMII diet with 1500 mL fluid restriction -AM CBC, BMP, mag, PT/INR (2) Acute on chronic combined systolic (congestive) and diastolic (congestive) heart failure: Plan: Typically sees [facility] cardiology is on IV Lasix twice daily plus spironolactone. Looking for robust diuresis. Renal function is stable Likely due to demand from CHF exacerbation -cardiology not planning on further testing (3) Generalized weakness: Plan: -Likely multifactorial including progressive CHF and deconditioning on top of her baseline weakness -She has a mild leukocytosis of 12 -CXR is negative for pneumonia, negative abdominal exam, no signs of new wounds -Will obtain UA with reflex cultures as needed for possible UTI -Should be evaluated by PT/OT prior to discharge (4) Insulin-requiring or dependent type II diabetes mellitus: Plan: -Patient normally uses insulin pump but her current cartage is almost empty and did not bring refills -She is fine with basal/bolus while admitted -Pharmacy glycemic consult placed -HH/DMII diet (5) Fracture of distal end of right femur: Plan: -Has been a chronic issue and deemed inoperable by previous tertiary care centers (6) Anxiety: Plan: -Continue sertraline and bupropion (7) Hypothyroidism (acquired): Plan: -Continue levothyroxine (8) Chronic pain: Plan: -Continue home fentanyl patch -PRN tylenol -PRN narcan for oversedation/respiratory depression Admission and Anticipated Discharge Date Admission Date: October 17, 2023 Subjective Patient resting comfortably biggest concerns is some pain in her right leg. 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 Difficulty with outpatient prescribers continue oxycodone for her. Physical Exam Physical Exam: Patient is in her usual state she appears to have significant weight gain since my last remembrance of her. Leg is tender to touch and move is would be appropriate with her nonunion status. She has thick tenacious mucus which is suctioned from her metallic trach. This does not appear to be overtly changed from previous except being more thickened Results & Data Results & Data Vital Signs (Past 12 Hours) Vital Signs Temp Pulse Pulse Resp BP BP Pulse Ox 10/18/23 07:48 80 18 93 10/18/23 07:01 98.1 F 80 20 135/96 93 10/18/23 06:00 78 22 137/76 91 10/18/23 05:00 81 20 138/92 94 10/18/23 04:00 79 22 113/62 92 10/18/23 03:33 78 25 H 129/74 93 10/18/23 02:01 77 22 111/68 94 10/18/23 01:00 78 113/67 94 10/18/23 00:40 79 22 93 10/18/23 00:01 76 22 148/62 H 93 10/17/23 23:01 78 24 120/79 93 10/17/23 22:01 91 10/17/23 22:01 136/67 10/17/23 22:00 96 10/17/23 21:00 92 10/17/23 21:00 134/69 10/17/23 20:30 128/70 10/17/23 20:30 91 10/17/23 20:19 86 18 92 O2 Del Method O2 Flow Rate FiO2 10/18/23 07:48 Trach Collar 6 10/18/23 07:01 Trach Collar 8 10/18/23 06:00 Trach Collar 7 10/18/23 05:00 Trach Collar 7 10/18/23 04:00 Trach Collar 7 10/18/23 03:33 Trach Collar 7 10/18/23 02:01 Trach Collar 7 10/18/23 01:00 Trach Collar 7 10/18/23 00:40 Trach Collar 8 28 10/18/23 00:01 Trach Collar 7 10/17/23 23:01 Trach Collar 7 10/17/23 22:01 10/17/23 22:01 10/17/23 22:00 10/17/23 21:00 10/17/23 21:00 10/17/23 20:30 10/17/23 20:30 10/17/23 20:19 Trach Collar 8 28 Laboratory Results Reviewed CBC reviewed chemistry PG Care Time/CCT Total # of Minutes Spent Total Time Spent with Patient: Total time spent is greater than 50% in coordination of care (as documented) at patient's floor/unit and/or counseling patient: Coding Level of Care Code 79690 SUB INP/OBS CARE 3/50MIN Diagnoses Acute on chronic hypoxic respiratory failure J96.21 Acute on chronic combined systolic (congestive) and diastolic (congestive) heart failure I50.43 Generalized weakness R53.1 Insulin-requiring or dependent type II diabetes mellitus E11.9; Z79.4 Fracture of distal end of right femur S72.401A Anxiety F41.9 Hypothyroidism (acquired) E03.9 Chronic pain G89.29
--- NOTE | 2023-10-18 09:13 | Cardiology Progress Note ---
Date of Service October 18, 2023 Assessment & Plan (1) Acute on chronic combined systolic (congestive) and diastolic (congestive) heart failure: (2) Right heart failure: (3) Obesity hypoventilation syndrome: (4) Chronic hypoxic respiratory failure: (5) Tracheostomy in place: Plan IMPRESSION: Medically complex 68 year old female who presented to [facility] ED due to a fall from progressive weakness at home. Found to be in acute on chronic combined CHF + RHF. Patient has chronic hypoxic respiratory failure with a tracheostomy. Shortness of breath likely multifactorial due to underlying pulmonary disease with superimposed acute on chronic combined CHF. CHF: Patient appears hypervolemic on exam-- weight gain of at least 10-15 lbs. Agree with Payne placement for strict I&O. Start Lasix 40 mg daily. For now hold Aldactone and Jardiance Monitor renal function and electrolytes with daily BMP. K goal of 4.0 and mag goal of 2.0-- replace as needed. Continue GDMT-- Restart home dose metoprolol tartrate 12.5 mg BID-- consider transitioning to succinate formulary pending clinical course. Continue Lisinopril 2.5 mg daily and Imdur 30 mg daily. Chronic hypoxic respiratory failure: Supportive measures per primary team. Agree with Duonebs as needed. 10/18/23: Patient diuresed 3.8 overnight. Mildly improved respiratory status. Echo with preserved LVEF at 55% (improved from prior echo). RV is dilated consistent with underlying chronic respiratory failure/obesity hypoventiloatory syndrome. Continue lasix 40 mg IV BID today Monitor I+O's Spironolactone resumed. Replace potassium/magnesium as needed Stable renal function with creatinine at 1.4. Continue other home medications including metoprolol, lisinopril, isosorbide. Case discussed with Dr. Mendoza I spent a total of 30 minutes on the date of service in preparation, delivery, and documentation of the care provided to this patient, excluding any time spent in the performance of separately billed services. Nataliya Kennedy PA-C Department of Cardiology, [facility] This chart was completed in part utilizing Speech Voice Recognition Software. Grammatical errors, random word insertions, pronoun errors, and incomplete sentences are an occasional consequence of this system due to software limitations, ambient noise, and hardware issues. Any formal questions or concerns about the content, text, or information contained within the body of this dictation should be directly addressed to the provider for clarification. Admission and Anticipated Discharge Date Admission Date: October 17, 2023 Supervising Physician Co-Signing Physician Notes Patient seen examined the bedside. Significant diuresis, 3.8 L since admission. Renal function and electrolytes remained stable. Edema unchanged. Denies chest pain or shortness of breath. Telemetry reveals sinus rhythm 70s-90 bpm. Orthopnea and PND unchanged. Chest tightness improved. PE: VSS. Gen: NAD, morbid obesity. Heart: Regular rhythm, normal S1-S2. Distant heart sounds. No murmur. Lungs: Diminished breath sounds bilaterally. No rhonchi or wheeze. Abdomen: Soft, 2+ pitting pannus edema.Ext: 1-2+ pretibial edema. A/P: Agree with above PA-C history, physical exam, assessment and plan. Continue IV diuresis with Lasix 40 mg twice daily, Aldactone, and potassium supplementation as ordered. Follow daily weight, fluid balance, GFR, and electrolytes. Continue metoprolol, lisinopril, and isosorbide monohydrate as ordered. Subjective Patient resting in bed. Ongoing tachypnea noted. Reports SOB at rest but mildly improved from yesterday per patient. +cough with mild chest tightness. Diuresed 3.8 L since yesterday. Review of Systems Review of Systems: All systems reviewed & are unremarkable except as noted in HPI & below Physical Exam Constitutional: + ill appearing and + morbidly obese; no acute distress Neck: normal visual inspection (Tracheostomy present ) and + thick neck Respiratory: + cough and + tachypneic Auscultation : + rales and + wheezes Cardiovascular: Rate/Rhythm: regular rate and regular rhythm Heart Sounds: normal S1 and normal S2; no murmur (Distant heart sounds) Vessels: + JVD (unable to assess due to body habitis ) Extremities: + edema (+2 BLLE pitting edema ) Psychiatric: Orientation: alert and oriented x 3 Results & Data Vital Signs (Past 12 Hours) Vital Signs Temp Pulse Pulse Resp BP BP Pulse Ox 10/18/23 07:48 80 18 93 10/18/23 07:01 36.7 C 80 20 135/96 93 10/18/23 06:00 78 22 137/76 91 10/18/23 05:00 81 20 138/92 94 10/18/23 04:00 79 22 113/62 92 10/18/23 03:33 78 25 H 129/74 93 10/18/23 02:01 77 22 111/68 94 10/18/23 01:00 78 113/67 94 10/18/23 00:40 79 22 93 10/18/23 00:01 76 22 148/62 H 93 10/17/23 23:01 78 24 120/79 93 10/17/23 22:01 91 10/17/23 22:01 136/67 10/17/23 22:00 96 O2 Del Method O2 Flow Rate FiO2 10/18/23 07:48 Trach Collar 6 28 10/18/23 07:01 Trach Collar 8 10/18/23 06:00 Trach Collar 7 10/18/23 05:00 Trach Collar 7 10/18/23 04:00 Trach Collar 7 10/18/23 03:33 Trach Collar 7 10/18/23 02:01 Trach Collar 7 10/18/23 01:00 Trach Collar 7 10/18/23 00:40 Trach Collar 8 28 10/18/23 00:01 Trach Collar 7 10/17/23 23:01 Trach Collar 7 10/17/23 22:01 10/17/23 22:01 10/17/23 22:00 Laboratory Results Cardiac Enzymes 10/17/23 10/17/23 10/17/23 Range/Units 10:08 11:57 14:10 Troponin I High Sens 25.9 H 64.1 H* D 79.4 H* D (0-14) pg/ml B-Natriuretic Peptide 87 (0-100) pg/ml 10/17/23 10/18/23 Range/Units 19:53 02:15 Troponin I High Sens 68.3 H* D 42.8 H D (0-14) pg/ml B-Natriuretic Peptide (0-100) pg/ml Coagulation 10/17/23 Range/Units 14:10 B-Natriuretic Peptide 87 (0-100) pg/ml CBC 10/17/23 10/18/23 Range/Units 10:08 02:15 WBC 12.52 H 10.99 H (4.8-10.8) K/ul RBC 4.55 4.26 (4.20-5.40) M/uL Hgb 11.8 L 11.1 L (12.0-16.0) g/dl Hct 42.2 38.9 (37.0-47.0) % Plt Count 232 201 (130-400) K/uL Neut # (Auto) 10.29 H 8.16 H (1.40-6.50) K/uL Lymph # (Auto) 1.11 L 1.60 (1.20-3.40) K/uL [place] # (Auto) 0.83 H 0.96 H (0.11-0.59) K/uL Eos # (Auto) 0.15 0.17 (0.00-0.50) K/uL Baso # (Auto) 0.05 0.04 (0.00-0.20) K/uL Comprehensive Metabolic Panel 10/17/23 10/18/23 Range/Units 10:08 02:15 Sodium 139 138 (136-145) mmol/L Potassium 4.2 4.2 (3.5-5.1) mmol/L Chloride 106 103 (98-107) mmol/L Carbon Dioxide 26 30 (21-32) mmol/L BUN 19 22 (6-23) mg/dl Creatinine 1.41 H 1.47 H (0.6-1.2) mg/dl Glucose 197 H 150 H (70-99(Fasting)) mg/dl Calcium 8.9 8.6 (8.6-10.3) mg/dl Intake and Output 10/17/23 10/18/23 10/18/23 22:59 06:59 14:59 Intake Total 490 / 490 0 / 490 Output Total 3100 / 3800 700 / 3800 Balance -2610 / -3310 -700 / -3310 Intake: Oral 490 / 490 0 / 490 Output: Urine 700 / 700 Urine Amount (Catheter) 3100 / 3100 Payne/Indwelling 3100 / 3100 Other: Weight 187.2 kg Weight Measurement Method Built in [facility] Diagnostic Findings Telemetry reviewed: NSR with IVCD. Occ PVC's Chest xray reviewed from admission: Pulm vascular congestion noted with b/l pleural effusions Echo report reviewed from yesterday: Preserved LVEF at 55-60% Mild concentric LVH RV is mildly dilated with RV systolic function moderately reduced. LA is moderately dilated Poorly visualized valvular structures without significant stenosis or regurgitation. Compared with prior echo in Sep 2022 - LVEF has improved Medications Administered Current Inpatient Medications Albuterol (Albut/Ipratrop 3mg/0.5mg Neb 3 Ml Vial) 3 ml INH Q4H PRN; Protocol PRN Reason: COUGHING, WHEEZING, SHORTNESS OF BREATH Stop: 11/16/23 16:18 Last Admin: 10/18/23 00:40 Dose: 3 ml Albuterol (Albuterol Hfa 8 Gm Inhaler (Combivent Respimat P&T Subs)) 1 puffs INH QIDR ASIYA; Protocol Stop: 11/16/23 18:59 Last Admin: 10/18/23 07:36 Dose: 1 puffs Aspirin (Aspirin 81 Mg Ectab) 81 mg PO QAM [facility] Stop: 11/17/23 08:59 Atorvastatin Calcium (Atorvastatin 40 Mg Tab) 40 mg PO QPM ASIYA Stop: 11/16/23 20:59 Last Admin: 10/17/23 21:27 Dose: 40 mg Azithromycin (Azithromycin 250 Mg Tab) 250 mg PO MoWeFr@0900 [facility] Stop: 11/18/23 08:59 Bupropion HCl (Bupropion Sr 100 Mg Tabcr) 200 mg PO PM ASIYA Stop: 11/16/23 20:59 Last Admin: 10/17/23 21:27 Dose: 200 mg Dextrose (Dextrose 50% 50 Ml Syringe) 25 - 50 ml IV UD PRN; Protocol PRN Reason: Hypoglycemia Protocol Stop: 11/16/23 14:06 Enoxaparin Sodium (Enoxaparin 100 Mg/1ml Syr) 90 mg SQ Q24H [facility] Stop: 11/16/23 16:18 Last Admin: 10/17/23 19:58 Dose: 90 mg Fentanyl (Fentanyl 12 Mcg/Hr Tdsy) 12 mcg TD Q72H [facility] Stop: 10/31/23 17:59 Last Admin: 10/17/23 20:03 Dose: 12 mcg Furosemide (Furosemide 40 Mg/4 Ml Vial) 40 mg IV BID17 [facility] Stop: 11/16/23 16:59 Last Admin: 10/17/23 18:43 Dose: 40 mg Glucagon (Glucagon For Inj 1 Mg Vial) 1 mg SQ UD PRN; Protocol PRN Reason: Hypoglycemia Protocol Stop: 11/16/23 14:06 Glucose (Glucose 40% Gel 15 Gm Tube) 15 - 30 gm PO UD PRN; Protocol PRN Reason: Hypoglycemia Protocol Stop: 11/16/23 14:06 Glucose (Glucose 10 Tab/Tube) 4 - 8 tab PO UD PRN; Protocol PRN Reason: Hypoglycemia Treatment Stop: 11/16/23 14:06 Insulin Aspart (Insulin Aspart Per Unit Charge) 0 units SC ACHS [facility] Stop: 11/16/23 15:14 Insulin Glargine (Lantus Per Unit Charge) 50 units SQ DAILY ASIYA Stop: 11/16/23 15:29 Last Admin: 10/17/23 15:17 Dose: 50 units Ipratropium [place] (Ipratropium Hfa Inhaler (Combivent Respimat P&T Subs)) 1 puffs INH QIDR [facility]; Protocol Stop: 11/16/23 18:59 Last Admin: 10/18/23 07:36 Dose: 1 puffs Isosorbide Mononitrate (Isosorbide [place] Extended Rel 30 Mg Tabcr) 30 mg PO QAM [facility] Stop: 11/17/23 08:59 Levothyroxine Sodium (Levothyroxine Sodium 75 Mcg Tablet) 225 mcg PO DAILYBB [facility] Stop: 11/17/23 06:29 Last Admin: 10/18/23 07:28 Dose: 225 mcg Magnesium Oxide (Magnesium Oxide 400 Mg Tab) 400 mg PO QAM [facility] Stop: 11/17/23 08:59 Melatonin (Melatonin 3 Mg Tab) 6 mg PO HS [facility] Stop: 11/16/23 20:59 Last Admin: 10/17/23 21:27 Dose: 6 mg Metoprolol Tartrate (Metoprolol Tartrate 25 Mg Tab) 12.5 mg PO BID [facility] Stop: 11/16/23 20:59 Last Admin: 10/17/23 21:27 Dose: 12.5 mg Miscellaneous (Carbohydrates For Hypoglycemia ) 15 - 30 gm PO UD PRN PRN Reason: Hypoglycemia Protocol Stop: 11/16/23 14:06 Miscellaneous (Fentanyl Patch Remove & Waste) 1 each N/A Q3D [facility] Stop: 11/16/23 17:44 Last Admin: 10/17/23 17:45 Dose: 1 each Miscellaneous (Check Fentanyl Patch Placement) 1 each N/A QS [facility] Stop: 11/17/23 00:00 Last Admin: 10/18/23 01:27 Dose: 1 each Miscellaneous Information (Pharmacy Glycemic Mgmt Consult) 1 each N/A UD PRN PRN Reason: Consult Stop: 11/16/23 14:06 Naloxone HCl (Naloxone Hcl 0.4 Mg/1 Ml Vial/Carp) 0.4 mg IV Q5M PRN PRN Reason: oversedation Stop: 11/16/23 18:56 Pantoprazole Sodium (Pantoprazole 40 Mg Tab) 40 mg PO DAILYBB [facility] Stop: 11/17/23 06:29 Last Admin: 10/18/23 05:37 Dose: 40 mg Potassium Chloride (Potassium Chloride Crtab 20 Meq Tabcr) 20 meq PO BID [facility] Stop: 11/16/23 20:59 Last Admin: 10/17/23 21:27 Dose: 20 meq Sertraline HCl (Sertraline Hcl 50 Mg Tablet) 50 mg PO QAM [facility] Stop: 11/17/23 08:59 Spironolactone (Spironolactone 25 Mg Tab) 25 mg PO QAM [facility] Stop: 11/17/23 08:59 Topiramate (Topiramate 100 Mg Tab) 100 mg PO QAM [facility] Stop: 11/17/23 08:59 (2) Right heart failure Heart failure chronicity: acute on chronic Qualified Code(s): I50.813 - Acute on chronic right heart failure
[2023-10-18] MEDS: METOPROLOL TARTRATE 25 MG TAB PO SCH ×2 (09:53→20:57)
[2023-10-18] MEDS: MAGNESIUM OXIDE 400 MG TAB PO SCH (09:54)
[2023-10-18] MEDS: SPIRONOLACTONE 25 MG TAB PO SCH (09:54)
[2023-10-18] MEDS: POTASSIUM CHLORIDE CRTAB 20 MEQ TABCR PO SCH ×2 (09:55→20:56)
[2023-10-18] MEDS: ISOSORBIDE MONO EXTENDED REL 30 MG TABCR PO SCH (09:55)
[2023-10-18] MEDS: ASPIRIN 81 MG ECTAB PO SCH (09:55)
[2023-10-18] MEDS: TOPIRAMATE 100 MG TAB PO SCH (09:55)
[2023-10-18] MEDS: SERTRALINE HCL 50 MG TABLET PO SCH (09:56)
[2023-10-18] MEDS: LANTUS PER UNIT CHARGE SQ SCH (09:57)
[2023-10-18] MEDS: FUROSEMIDE 40 MG/4 ML VIAL IV SCH ×2 (09:57→18:43)
[2023-10-18] MEDS ORDERED: SODIUM CHLOR 7% 4 ML NEB NEB PRN (10:34)
[2023-10-18] MEDS: ENOXAPARIN INJ 40 MG/0.4 ML SYR SQ SCH ×2 (13:17→21:00)
--- NOTE | 2023-10-18 14:10 | Pharmacy Report ---
Pharmacy Glycemic Short Note 2 - Date of Service October 18, 2023 - Glycemic Short BSG Results (Last 24 hours): 10/17/23 10/17/23 10/18/23 15:36 20:31 01:23 Glucose POC Glucose 96 121 H 136 H 10/18/23 10/18/23 10/18/23 02:15 04:30 08:20 Glucose 150 H POC Glucose 142 H 131 H 10/18/23 12:25 Glucose POC Glucose 157 H OUTPATIENT ANTIDIABETIC REGIMEN: * HbA1c 7.0% 03/29/23, 11/17/23 pending * Novolog pump setting per CDE note (08/25/23) * Basal insulin 127 units * Correction Factor (0724-5286 10, 5303-8841 17) * Carbohydrate Ratio (0700-1083 2, 8661-2947 3) ASSESSMENT: 10/18: * BSGs [phone]/dL the last 24h. Received 50 units of basal and no bolus insulin yesterday. * Diet advanced today and tolerating. Other stressors stable. * Fasting BSG within goal this AM- continue Lantus 50 units in the AM. Will add scaled Lantus tonight based upon BSG given tolerating a diet. No change to Novolog. 10/17: * Whit is a 68 YOF admitted with shortness of breath and a history of T2DM. Pharmacy has been consulted for glycemic management while inpatient. Discussed plan with ASHWIN Ralph. Currently NPO, plan to transition to SC insulin due to patient being out of supplies. * Will give 50 units of Lantus now and transition off of the insulin pump. Previously has required 70 units of Lantus BID while admitted. * Start Novolog parameters looser than previous admissions as below. PLAN FOR INPATIENT GLYCEMIC CONTROL: * Remove insulin pump and transition to SC insulin * Basal insulin * Lantus 50 units qAM, 50/70 units HS depending on BSG * Bolus insulin * NovoLog per scale ACHS or Q4hrs while NPO * Goal Range: Low 110 mg/dL - High 140 mg/dL * Correction Factor: 8 mg/dL/unit * Nutritional / Prandial insulin per carb ratio of 1 unit per 2 grams CHO consumed
[2023-10-18] MEDS ORDERED: oxyCODONE HCL IR 5 MG TAB (IMMEDIATE RELEASE) PO PRN (14:44)
[2023-10-18] MEDS ORDERED: ACETAMINOPHEN 1,000 MG/100 ML VIAL IV PRN (14:55)
[2023-10-18] MEDS: ACETAMINOPHEN 500 MG TAB PO PRN (15:04)
[2023-10-18] MEDS ORDERED: LANTUS PER UNIT CHARGE SQ STA (20:39)
[2023-10-18] MEDS: buPROPion SR 100 MG TABCR PO SCH (20:55)
[2023-10-18] MEDS: ATORVASTATIN 40 MG TAB PO SCH (20:55)
[2023-10-18] MEDS: MELATONIN 3 MG TAB PO SCH (20:59)
[2023-10-18] MEDS ORDERED: LANTUS PER UNIT CHARGE SC SCH (21:00)
[2023-10-19] MEDS: CHECK fentaNYL PATCH PLACEMENT SCH ×3 (00:03→16:28)
[2023-10-19 04:24] LABS: Basophils # (auto) 0.03 K/uL (0.00-0.20); Basophils % (auto) 0.3 %; Eosinophils # (auto) 0.26 K/uL (0.00-0.50); Eosinophils % (auto) 2.8 %; Hematocrit (blood only) 37.5 % (37.0-47.0); Immature Granulocytes # (auto) 0.05 K/uL (0.01-0.20); Immature Granulocytes % (auto) 0.5 %; Mean Corpuscular Hemoglobin 26.6 pg (25.0-34.0); Mean Corpuscular Hgb Conc 29.3 g/dL (32.0-36.0); Mean Corpuscular Volume 90.6 fL (80.0-100.0); Mean Platelet Volume 9.5 fL (9.4-12.4); Monocytes # (auto) 0.97 K/uL (0.11-0.59); Monocytes % (auto) 10.4 %; Neutrophils # (auto) 6.69 K/uL (1.40-6.50); Platelet Count 205 K/uL (130-400); RDW Coefficient of Variation 16.3 % (11.5-14.5); RDW Standard Deviation 54.4 fL (36.4-46.3); Red Blood Count 4.14 M/uL (4.20-5.40)
[2023-10-19 04:27] LABS: BUN Creatinine Ratio 16.5 (10-20); Calcium 8.5 mg/dl (8.6-10.3); Creatinine Clr Calc Pharmacy 55.3 ml/min; Est GFR (African American) 38.8 ml/min; Est GFR (Non-African American) 33.5 ml/min; Potassium 4.2 mmol/L (3.5-5.1)
[2023-10-19] MEDS: LEVOTHYROXINE SODIUM 75 MCG TABLET PO SCH (05:54)
[2023-10-19] MEDS: PANTOprazole 40 MG TAB PO SCH (05:55)
[2023-10-19] MEDS: Albuterol HFA 8 GM Inhaler (Combivent Respimat P&T Subs) INH SCH ×4 (06:53→19:32)
[2023-10-19] MEDS: Ipratropium HFA Inhaler (Combivent Respimat P&T Subs) INH SCH ×4 (06:53→19:32)
[2023-10-19] MEDS: MAGNESIUM OXIDE 400 MG TAB PO SCH (08:11)
[2023-10-19] MEDS: SERTRALINE HCL 50 MG TABLET PO SCH (08:12)
[2023-10-19] MEDS: POTASSIUM CHLORIDE CRTAB 20 MEQ TABCR PO SCH ×2 (08:12→20:42)
[2023-10-19] MEDS: ASPIRIN 81 MG ECTAB PO SCH (08:12)
[2023-10-19] MEDS: METOPROLOL TARTRATE 25 MG TAB PO SCH ×2 (08:12→20:41)
[2023-10-19] MEDS: TOPIRAMATE 100 MG TAB PO SCH (08:12)
[2023-10-19] MEDS: ISOSORBIDE MONO EXTENDED REL 30 MG TABCR PO SCH (08:12)
[2023-10-19] MEDS: SPIRONOLACTONE 25 MG TAB PO SCH (08:12)
[2023-10-19] MEDS: AZITHROMYCIN 250 MG TAB PO SCH (08:12)
[2023-10-19] MEDS: ENOXAPARIN INJ 40 MG/0.4 ML SYR SQ SCH ×2 (08:21→20:42)
[2023-10-19] MEDS: FUROSEMIDE 40 MG/4 ML VIAL IV SCH ×2 (08:21→17:34)
[2023-10-19] MEDS: INSULIN ASPART PER UNIT CHARGE SC SCH ×3 (09:09→17:45)
[2023-10-19] MEDS: LANTUS PER UNIT CHARGE SQ SCH (09:09)
--- NOTE | 2023-10-19 11:03 | Pharmacy Report ---
Pharmacy Glycemic Short Note 2 - Date of Service October 19, 2023 - Glycemic Short BSG Results (Last 24 hours): 10/18/23 10/18/23 10/18/23 12:25 17:42 20:23 Glucose POC Glucose 157 H 93 102 H 10/19/23 10/19/23 03:44 07:40 Glucose 131 H POC Glucose 125 H OUTPATIENT ANTIDIABETIC REGIMEN: * HbA1c 7.0% 03/29/23, 11/17/23 pending * Novolog pump setting per CDE note (08/25/23) * Basal insulin 127 units * Correction Factor (9745-1738 10, 7311-7456 17) * Carbohydrate Ratio (4624-1729 2, 6134-5983 3) ASSESSMENT: 10/19: * Blood sugars trended down throughout the day yesterday 142 -[phone] - HS Lantus reduced to 15 units, fasting 125mg/dl this morning - continue this HS dose. * Also loosen CR slightly to prevent hypoglycemia. 10/18: * BSGs 22-123-847-131-157mg/dL the last 24h. Received 50 units of basal and no bolus insulin yesterday. * Diet advanced today and tolerating. Other stressors stable. * Fasting BSG within goal this AM- continue Lantus 50 units in the AM. Will add scaled Lantus tonight based upon BSG given tolerating a diet. No change to Novolog. 10/17: * Whit is a 68 YOF admitted with shortness of breath and a history of T2DM. Pharmacy has been consulted for glycemic management while inpatient. Discussed plan with ASHWIN Ralph. Currently NPO, plan to transition to SC insulin due to patient being out of supplies. * Will give 50 units of Lantus now and transition off of the insulin pump. Previously has required 70 units of Lantus BID while admitted. * Start Novolog parameters looser than previous admissions as below. PLAN FOR INPATIENT GLYCEMIC CONTROL: * Remove insulin pump and transition to SC insulin * Basal insulin * Lantus 50 units qAM, 15 units HS * Bolus insulin * NovoLog per scale ACHS or Q4hrs while NPO * Goal Range: Low 110 mg/dL - High 140 mg/dL * Correction Factor: 8 mg/dL/unit * Nutritional / Prandial insulin per carb ratio of 1 unit per 2.5 grams CHO consumed
[2023-10-19] MEDS ORDERED: MAGNESIUM SULFATE / D5W 1 GM/100 ML BAG IV ONE (12:00)
--- NOTE | 2023-10-19 14:55 | Cardiology Progress Note ---
Date of Service October 19, 2023 Assessment & Plan (1) Acute on chronic combined systolic (congestive) and diastolic (congestive) heart failure: (2) Right heart failure: (3) Obesity hypoventilation syndrome: (4) Chronic hypoxic respiratory failure: (5) Tracheostomy in place: Plan IMPRESSION: Medically complex 68 year old female who presented to [facility] ED due to a fall from progressive weakness at home. Found to be in acute on chronic combined CHF + RHF. Patient has chronic hypoxic respiratory failure with a tracheostomy. Shortness of breath likely multifactorial due to underlying pulmonary disease with superimposed acute on chronic combined CHF. CHF: On admission patient hypervolemic on exam-- weight gain of at least 10-15 lbs. Payne placed Started on IV furosemide and titrated to 40 mg IV BID Spironolactone resumed at 25 mg daily. Volume status improving, but ongoing diuresis needed for improved respiratory status. Monitor renal function and electrolytes with daily BMP. K goal of 4.0 and mag goal of 2.0-- replace as needed. Continue GDMT-- Metoprolol tartrate transitioned to metoprolol succinate 25 mg tomorrow AM Chronic hypoxic respiratory failure: Supportive measures per primary team. Case discussed with Dr. Mendoza I spent a total of 30 minutes on the date of service in preparation, delivery, and documentation of the care provided to this patient, excluding any time spent in the performance of separately billed services. Nataliya Kennedy PA-C Department of Cardiology, [facility] This chart was completed in part utilizing Speech Voice Recognition Software. Grammatical errors, random word insertions, pronoun errors, and incomplete sentences are an occasional consequence of this system due to software limitations, ambient noise, and hardware issues. Any formal questions or concerns about the content, text, or information contained within the body of this dictation should be directly addressed to the provider for clarification. Admission and Anticipated Discharge Date Admission Date: October 17, 2023 Supervising Physician Co-Signing Physician Notes Patient seen examined the bedside. Significant diuresis, 5.3 L since admission. Renal function and electrolytes remained stable. Edema unchanged. Denies ch est pain or shortness of breath. Telemetry reveals sinus rhythm 70s-90 bpm. Orthopnea improved. Chest tightness resolved. PE: VSS. Gen: NAD, morbid obesity. Heart: Regular rhythm, normal S1-S2. Distant heart sounds. No murmur. Lungs: Diminished breath sounds bilaterally. No rhonchi or wheeze. Abdomen: Soft, 2+ pitting pannus edema. Ext: 1+ pretibial edema. A/P: Agree with above PAChristen history, physical exam, assessment and plan. Continue IV diuresis with Lasix 40 mg twice daily, Aldactone, and potassium supplementation as ordered. Follow daily weight, fluid balance, GFR, and electrolytes. Continue metoprolol, lisinopril, and isosorbide monohydrate as ordered. Subjective Patient resting in bed. Reports SOB has improved from yesterday but not at baseline. Good diuresis overnight. Weight trending down. Edema improving. No chest pain. tolerating medications. Review of Systems Review of Systems: All systems reviewed & are unremarkable except as noted in HPI & below Physical Exam Constitutional: + ill appearing and + morbidly obese; no acute distress Neck: normal visual inspection (Tracheostomy present ) and + thick neck Respiratory: Auscultation: + rales and + wheezes Cardiovascular: Rate/Rhythm: regular rate and regular rhythm Heart Sounds: normal S1 and normal S2; no murmur (Distant heart sounds) Vessels: + JVD (unable to assess due to body habitis ) Extremities: + edema (+2 BLLE pitting edema ) Psychiatric: Orientation: alert and oriented x 3 Results & Data Vital Signs (Past 12 Hours) Vital Signs Pulse Pulse Resp BP BP Pulse Ox O2 Del Method 10/19/23 13:00 77 16 99 10/19/23 12:00 148/82 H 10/19/23 12:00 76 21 93 10/19/23 11:17 73 22 96 Trach Collar 10/19/23 11:00 69 16 98 10/19/23 10:38 72 20 95 10/19/23 10:38 135/79 10/19/23 10:38 74 21 135/79 94 Trach Collar 10/19/23 10:00 68 20 96 10/19/23 09:00 81 21 83 L 10/19/23 08:13 142/70 H 10/19/23 08:13 79 21 91 10/19/23 08:00 78 18 95 10/19/23 07:11 79 10/19/23 07:00 82 21 94 10/19/23 06:54 83 20 94 Trach Collar 10/19/23 06:00 80 23 93 10/19/23 05:00 80 15 95 10/19/23 04:00 126/82 10/19/23 04:00 81 19 96 10/19/23 03:00 78 24 94 O2 Flow Rate FiO2 10/19/23 13:00 10/19/23 12:00 10/19/23 12:00 10/19/23 11:17 6 28 10/19/23 11:00 10/19/23 10:38 10/19/23 10:38 10/19/23 10:38 6 10/19/23 10:00 10/19/23 09:00 10/19/23 08:13 10/19/23 08:13 10/19/23 08:00 10/19/23 07:11 10/19/23 07:00 10/19/23 06:54 6 28 10/19/23 06:00 10/19/23 05:00 10/19/23 04:00 10/19/23 04:00 10/19/23 03:00 Laboratory Results Cardiac Enzymes 10/18/23 10/18/23 10/19/23 Range/Units 16:28 22:52 03:44 Troponin I High Sens 24.9 H 22.6 H 19.9 H (0-14) pg/ml CBC 10/19/23 Range/Units 03:44 WBC 9.30 (4.8-10.8) K/ul RBC 4.14 L (4.20-5.40) M/uL Hgb 11.0 L (12.0-16.0) g/dl Hct 37.5 (37.0-47.0) % Plt Count 205 (130-400) K/uL Neut # (Auto) 6.69 H (1.40-6.50) K/uL Lymph # (Auto) 1.30 (1.20-3.40) K/uL [place] # (Auto) 0.97 H (0.11-0.59) K/uL Eos # (Auto) 0.26 (0.00-0.50) K/uL Baso # (Auto) 0.03 (0.00-0.20) K/uL Comprehensive Metabolic Panel 10/19/23 Range/Units 03:44 Sodium 138 (136-145) mmol/L Potassium 4.2 (3.5-5.1) mmol/L Chloride 103 (98-107) mmol/L Carbon Dioxide 30 (21-32) mmol/L BUN 26 H (6-23) mg/dl Creatinine 1.58 H (0.6-1.2) mg/dl Glucose 131 H (70-99(Fasting)) mg/dl Calcium 8.5 L (8.6-10.3) mg/dl Intake and Output 10/18/23 10/19/23 10/19/23 22:59 06:59 14:59 Intake Total 100 / 100 Output Total 1150 / 3175 525 / 3175 Balance -1150 / -3175 -525 / -3175 100 / 100 Intake: IV 100 / 100 Magnesium Sulfate / D5w 1 gm In 100 / 100 100 ml @ 50 mls/hr IV ONE ONE Rx#:[id number] Output: Urine Amount (Catheter) 1150 / 3175 525 / 3175 Payne/Indwelling 1150 / 3175 525 / 3175 Other: Weight 178.2 kg Weight Measurement Method Built in [facility] Diagnostic Findings Telemetry reviewed: NSR with occ PVC. No concerning arrhythmias Medications Administered Current Inpatient Medications Acetaminophen (Acetaminophen 500 Mg Tab) 1,000 mg PO Q8H PRN PRN Reason: Pain or Fever Stop: 11/17/23 14:43 Last Admin: 10/18/23 15:04 Dose: 1,000 mg Albuterol (Albut/Ipratrop 3mg/0.5mg Neb 3 Ml Vial) 3 ml INH Q4H PRN; Protocol PRN Reason: COUGHING, WHEEZING, SHORTNESS OF BREATH Stop: 11/16/23 16:18 Last Admin: 10/18/23 00:40 Dose: 3 ml Albuterol (Albuterol Hfa 8 Gm Inhaler (Combivent Respimat P&T Subs)) 1 puffs INH QIDR ASIYA; Protocol Stop: 11/16/23 18:59 Last Admin: 10/19/23 11:17 Dose: 1 puffs Aspirin (Aspirin 81 Mg Ectab) 81 mg PO QAM [facility] Stop: 11/17/23 08:59 Last Admin: 10/19/23 08:12 Dose: 81 mg Atorvastatin Calcium (Atorvastatin 40 Mg Tab) 40 mg PO QPM [facility] Stop: 11/16/23 20:59 Last Admin: 10/18/23 20:55 Dose: 40 mg Azithromycin (Azithromycin 250 Mg Tab) 250 mg PO MoWeFr@0900 [facility] Stop: 11/18/23 08:59 Last Admin: 10/19/23 08:12 Dose: 250 mg Bupropion HCl (Bupropion Sr 100 Mg Tabcr) 200 mg PO PM [facility] Stop: 11/16/23 20:59 Last Admin: 10/18/23 20:55 Dose: 200 mg Dextrose (Dextrose 50% 50 Ml Syringe) 25 - 50 ml IV UD PRN; Protocol PRN Reason: Hypoglycemia Protocol Stop: 11/16/23 14:06 Enoxaparin Sodium (Enoxaparin Inj 40 Mg/0.4 Ml Syr) 40 mg SQ BID ASIYA Stop: 11/17/23 10:59 Last Admin: 10/19/23 08:21 Dose: 40 mg Fentanyl (Fentanyl 12 Mcg/Hr Tdsy) 12 mcg TD Q72H [facility] Stop: 10/31/23 17:59 Last Admin: 10/17/23 20:03 Dose: 12 mcg Furosemide (Furosemide 40 Mg/4 Ml Vial) 40 mg IV BID17 ASIYA Stop: 11/16/23 16:59 Last Admin: 10/19/23 08:21 Dose: 40 mg Glucagon (Glucagon For Inj 1 Mg Vial) 1 mg SQ UD PRN; Protocol PRN Reason: Hypoglycemia Protocol Stop: 11/16/23 14:06 Glucose (Glucose 40% Gel 15 Gm Tube) 15 - 30 gm PO UD PRN; Protocol PRN Reason: Hypoglycemia Protocol Stop: 11/16/23 14:06 Glucose (Glucose 10 Tab/Tube) 4 - 8 tab PO UD PRN; Protocol PRN Reason: Hypoglycemia Treatment Stop: 11/16/23 14:06 Acetaminophen (Ofirmev) 1,000 mg in 100 mls @ 400 mls/hr IV Q8H PRN PRN Reason: Pain or Fever Stop: 10/21/23 14:54 Insulin Aspart (Insulin Aspart Per Unit Charge) 0 units SC ACHS [facility] Stop: 11/16/23 15:14 Last Admin: 10/19/23 13:34 Dose: Not Given Insulin Glargine (Lantus Per Unit Charge) 50 units SQ DAILY [facility] Stop: 11/16/23 15:29 Last Admin: 10/19/23 09:09 Dose: 50 units Insulin Glargine (Lantus Per Unit Charge) 15 units SC HS [facility]; Protocol Stop: 11/18/23 20:59 Ipratropium [place] (Ipratropium Hfa Inhaler (Combivent Respimat P&T Subs)) 1 puffs INH QIDR [facility]; Protocol Stop: 11/16/23 18:59 Last Admin: 10/19/23 11:16 Dose: 1 puffs Isosorbide Mononitrate (Isosorbide [place] Extended Rel 30 Mg Tabcr) 30 mg PO QAM [facility] Stop: 11/17/23 08:59 Last Admin: 10/19/23 08:12 Dose: 30 mg Levothyroxine Sodium (Levothyroxine Sodium 75 Mcg Tablet) 225 mcg PO DAILYBB [facility] Stop: 11/17/23 06:29 Last Admin: 10/19/23 05:54 Dose: 225 mcg Magnesium Oxide (Magnesium Oxide 400 Mg Tab) [facility] Stop: 11/17/23 08:59 Last Admin: 10/19/23 08:11 Dose: 400 mg Melatonin (Melatonin 3 Mg Tab) 6 mg PO [facility] Stop: 11/16/23 20:59 Last Admin: 10/18/23 20:59 Dose: 6 mg Metoprolol Tartrate (Metoprolol Tartrate 25 Mg Tab) 12.5 mg PO BID [facility] Stop: 11/16/23 20:59 Last Admin: 10/19/23 08:12 Dose: 12.5 mg Miscellaneous (Carbohydrates For Hypoglycemia ) 15 - 30 gm PO UD PRN PRN Reason: Hypoglycemia Protocol Stop: 11/16/23 14:06 Miscellaneous (Fentanyl Patch Remove & Waste) 1 each N/A Q3D [facility] Stop: 11/16/23 17:44 Last Admin: 10/17/23 17:45 Dose: 1 each Miscellaneous (Check Fentanyl Patch Placement) 1 each N/A QS [facility] Stop: 11/17/23 00:00 Last Admin: 10/19/23 08:20 Dose: 1 each Miscellaneous Information (Pharmacy Glycemic Mgmt Consult) 1 each N/A UD PRN PRN Reason: Consult Stop: 11/16/23 14:06 Naloxone HCl (Naloxone Hcl 0.4 Mg/1 Ml Vial/Carp) 0.4 mg IV Q5M PRN PRN Reason: oversedation Stop: 11/16/23 18:56 Oxycodone HCl (Oxycodone Hcl Ir 5 Mg Tab (Immediate Release)) 5 mg PO Q6H PRN PRN Reason: Moderate Pain 4-6/10 Stop: 11/01/23 14:43 Pantoprazole Sodium (Pantoprazole 40 Mg Tab) 40 mg PO DAILYBB [facility] Stop: 11/17/23 06:29 Last Admin: 10/19/23 05:55 Dose: 40 mg Potassium Chloride (Potassium Chloride Crtab 20 Meq Tabcr) 20 meq PO BID [facility] Stop: 11/16/23 20:59 Last Admin: 10/19/23 08:12 Dose: 20 meq Sertraline HCl (Sertraline Hcl 50 Mg Tablet) 50 mg PO QAM [facility] Stop: 11/17/23 08:59 Last Admin: 10/19/23 08:12 Dose: 50 mg Sodium Chloride (Sodium Chlor 7% 4 Ml Neb) 4 ml NEB BIDR PRN PRN Reason: Congestion Stop: 11/17/23 18:59 Spironolactone (Spironolactone 25 Mg Tab) 25 mg PO QAM [facility] Stop: 11/17/23 08:59 Last Admin: 10/19/23 08:12 Dose: 25 mg Topiramate (Topiramate 100 Mg Tab) 100 mg PO QAM [facility] Stop: 11/17/23 08:59 Last Admin: 10/19/23 08:12 Dose: 100 mg (2) Right heart failure Heart failure chronicity: acute on chronic Qualified Code(s): I50.813 - Acute on chronic right heart failure
--- NOTE | 2023-10-19 16:10 | Hospitalist Progress Note ---
Date of Service October 19, 2023 Assessment & Plan (1) Acute on chronic hypoxic respiratory failure: Plan: -secondary to acute on chronic systolic and diastolic heart failure plus obesity hypoventilation syndrome due to morbid obesity chronic tracheostomy in place Improving with q12h diuresis, -follows with [facility] cardiogy, reviewed echo no RWMA, restarted on diuresis -Currently stable on 6L blow by oxygen via trache collar -At this time it does not appear that she has an infectious etiology as her CXR is without consolidation, procal is negative, and full respiratory biofire is negative denies medical non compliance, has increased weight from past most likely this can be consider chronic lung disease exacerbated by acute diastolic heart failure at this time -SQ lovenox for DVT PPX -HH/DMII diet with 1500 mL fluid restriction - (2) Acute on chronic combined systolic (congestive) and diastolic (congestive) heart failure: Plan: Typically sees [facility] cardiology is on IV Lasix twice daily plus spironolactone. Looking for robust diuresis. Renal function is stable Likely due to demand from CHF exacerbation -cardiology not planning on further testing (3) Generalized weakness: Plan: -Likely multifactorial including progressive CHF and deconditioning on top of her baseline weakness -She has a mild leukocytosis of 12 -CXR is negative for pneumonia, negative abdominal exam, no signs of new wounds -Will obtain UA with reflex cultures as needed for possible UTI -Should be evaluated by PT/OT prior to discharge (4) Insulin-requiring or dependent type II diabetes mellitus: Plan: -Patient normally uses insulin pump but her current cartage is almost empty and did not bring refills -She is fine with basal/bolus while admitted -Pharmacy glycemic consult placed -HH/DMII diet (5) Fracture of distal end of right femur: Plan: -Has been a chronic issue and deemed inoperable by previous tertiary care centers (6) Anxiety: Plan: -Continue sertraline and bupropion (7) Hypothyroidism (acquired): Plan: -Continue levothyroxine (8) Chronic pain: Plan: -Continue home fentanyl patch -PRN tylenol -PRN narcan for oversedation/respiratory depression Admission and Anticipated Discharge Date Admission Date: October 17, 2023 Subjective Patient resting in bed. Reports SOB has improved but not at baseline, still attributing this to viral illness from caregiver Weight trending down. Edema improving. No chest pain. tolerating medic ations. Physical Exam Physical Exam: Patient is in her usual state she appears to have significant weight gain since my last remembrance of her. Leg is tender to touch and move is would be appropriate with her nonunion status. She has thick tenacious mucus which is suctioned from her metallic trach. This does not appear to be overtly changed from previous except being more thickened Results & Data Results & Data Vital Signs (Past 12 Hours) Vital Signs Pulse Pulse Resp BP BP Pulse Ox O2 Del Method 10/19/23 15:17 76 20 94 Trach Collar 10/19/23 13:00 77 16 99 10/19/23 12:00 148/82 H 10/19/23 12:00 76 21 93 10/19/23 11:17 73 22 96 Trach Collar 10/19/23 11:00 69 16 98 10/19/23 10:38 72 20 95 10/19/23 10:38 135/79 10/19/23 10:38 74 21 135/79 94 Trach Collar 10/19/23 10:00 68 20 96 10/19/23 09:00 81 21 83 L 10/19/23 08:13 142/70 H 10/19/23 08:13 79 21 91 10/19/23 08:00 78 18 95 10/19/23 07:11 79 10/19/23 07:00 82 21 94 10/19/23 06:54 83 20 94 Trach Collar 10/19/23 06:00 80 23 93 10/19/23 05:00 80 15 95 O2 Flow Rate FiO2 10/19/23 15:17 6 28 10/19/23 13:00 10/19/23 12:00 10/19/23 12:00 10/19/23 11:17 6 28 10/19/23 11:00 10/19/23 10:38 10/19/23 10:38 10/19/23 10:38 6 10/19/23 10:00 10/19/23 09:00 10/19/23 08:13 10/19/23 08:13 10/19/23 08:00 10/19/23 07:11 10/19/23 07:00 10/19/23 06:54 6 28 10/19/23 06:00 10/19/23 05:00 PG Care Time/CCT Total # of Minutes Spent Total Time Spent with Patient: Total time spent is greater than 50% in coordination of care (as documented) at patient's floor/unit and/or counseling patient: Coding Level of Care Code 39031 SUB INP/OBS CARE 2/35MIN Diagnoses Acute on chronic hypoxic respiratory failure J96.21 Acute on chronic combined systolic (congestive) and diastolic (congestive) heart failure I50.43 Generalized weakness R53.1 Insulin-requiring or dependent type II diabetes mellitus E11.9; Z79.4 Fracture of distal end of right femur S72.401A Anxiety F41.9 Hypothyroidism (acquired) E03.9 Chronic pain G89.29
[2023-10-19] MEDS ORDERED: INSULIN ASPART 100 UNITS/ML VIAL SC PRN (18:00)
[2023-10-19] MEDS: INSULIN, Rapid-Acting PUMP SCH ×2 (18:14→21:28)
[2023-10-19] MEDS: MELATONIN 3 MG TAB PO SCH (20:42)
[2023-10-19] MEDS: ATORVASTATIN 40 MG TAB PO SCH (20:50)
[2023-10-19] MEDS: buPROPion SR 100 MG TABCR PO SCH (20:51)
[2023-10-19] MEDS ORDERED: LANTUS PER UNIT CHARGE SC SCH ×2 (21:00)
[2023-10-20] MEDS: INSULIN, Rapid-Acting PUMP SCH ×6 (00:29→20:43)
[2023-10-20] MEDS: CHECK fentaNYL PATCH PLACEMENT SCH ×3 (00:44→16:08)
[2023-10-20] MEDS: Albuterol HFA 8 GM Inhaler (Combivent Respimat P&T Subs) INH SCH ×6 (03:03→22:23)
[2023-10-20] MEDS: Ipratropium HFA Inhaler (Combivent Respimat P&T Subs) INH SCH ×6 (03:03→22:20)
[2023-10-20] MEDS: PANTOprazole 40 MG TAB PO SCH (05:53)
[2023-10-20] MEDS: LEVOTHYROXINE SODIUM 75 MCG TABLET PO SCH (05:53)
[2023-10-20 06:28] LABS: BUN Creatinine Ratio 18.8 (10-20); Calcium 8.8 mg/dl (8.6-10.3); Creatinine Clr Calc Pharmacy 58.4 ml/min; Est GFR (African American) 41.7 ml/min; Potassium 4.2 mmol/L (3.5-5.1)
[2023-10-20 06:37] LABS: Basophils # (auto) 0.03 K/uL (0.00-0.20); Basophils % (auto) 0.3 %; Eosinophils # (auto) 0.35 K/uL (0.00-0.50); Eosinophils % (auto) 3.7 %; Hematocrit (blood only) 37.6 % (37.0-47.0); Hemoglobin 10.7 g/dl (12.0-16.0); Hypochromasia Present; Immature Granulocytes # (auto) 0.06 K/uL (0.01-0.20); Immature Granulocytes % (auto) 0.6 %; Lymphocytes # (auto) 1.33 K/uL (1.20-3.40); Lymphocytes % (auto) 14.2 %; Mean Corpuscular Hemoglobin 25.9 pg (25.0-34.0); Mean Corpuscular Hgb Conc 28.5 g/dL (32.0-36.0); Mean Platelet Volume 9.8 fL (9.4-12.4); Monocytes # (auto) 0.96 K/uL (0.11-0.59); Monocytes % (auto) 10.3 %; Neutrophils # (auto) 6.63 K/uL (1.40-6.50); Neutrophils % (auto) 70.9 %; Platelet Count 209 K/uL (130-400); RDW Coefficient of Variation 16.2 % (11.5-14.5); RDW Standard Deviation 54.2 fL (36.4-46.3); Red Blood Count 4.13 M/uL (4.20-5.40); White Blood Count 9.36 K/ul (4.8-10.8)
[2023-10-20] MEDS ORDERED: fentaNYL 12 MCG/HR TDSY TD SCH (08:00)
[2023-10-20] MEDS: POTASSIUM CHLORIDE CRTAB 20 MEQ TABCR PO SCH ×2 (08:48→21:31)
[2023-10-20] MEDS: SPIRONOLACTONE 25 MG TAB PO SCH (08:49)
[2023-10-20] MEDS: METOPROLOL SUCC 25MG EXT REL TAB PO SCH (08:49)
[2023-10-20] MEDS: TOPIRAMATE 100 MG TAB PO SCH (08:49)
[2023-10-20] MEDS: SERTRALINE HCL 50 MG TABLET PO SCH (08:49)
[2023-10-20] MEDS: ASPIRIN 81 MG ECTAB PO SCH (08:50)
[2023-10-20] MEDS: FUROSEMIDE 40 MG/4 ML VIAL IV SCH ×2 (08:50→17:25)
[2023-10-20] MEDS: ISOSORBIDE MONO EXTENDED REL 30 MG TABCR PO SCH (08:50)
[2023-10-20] MEDS: MAGNESIUM OXIDE 400 MG TAB PO SCH (08:50)
[2023-10-20] MEDS: ENOXAPARIN INJ 40 MG/0.4 ML SYR SQ SCH ×2 (08:51→21:32)
--- NOTE | 2023-10-20 09:13 | XRay Report ---
SINGLE VIEW CHEST CLINICAL HISTORY: Congestive heart failure. FINDINGS: 2 AP, portable, upright chest radiographs are compared to study dated 10/17/2023. The [facility] is degraded by portable technique, large body habitus, and patient rotation. A tracheostomy is in place. The heart is enlarged. Pulmonary vascular congestion is improved from previous. There is b ibasilar atelectasis. No airspace consolidation or large pleural effusion is identified. No pneumotho rax is seen. The skeletal structures are osteopenic. The bony thorax is grossly intact. IMPRESSION: 1. Cardiomegaly with mild pulmonary vascular congestion. This has improved from previous. 2. No airspace consolidation or large pleural effusion is identified. ACT 112: Negative or not required by law. Electronically signed by: Jasper Hancock M.D. 10/20/2023 9:11 AM
--- NOTE | 2023-10-20 12:13 | Cardiology Progress Note ---
Date of Service October 20, 2023 Assessment & Plan (1) Acute on chronic combined systolic (congestive) and diastolic (congestive) heart failure: (2) Right heart failure: (3) Obesity hypoventilation syndrome: (4) Chronic hypoxic respiratory failure: (5) Tracheostomy in place: Plan IMPRESSION: Medically complex 68 year old female who presented to [facility] ED due to a fall from progressive weakness at home. Found to be in acute on chronic combined CHF + RHF. Patient has chronic hypoxic respiratory failure with a tracheostomy. Shortness of breath likely multifactorial due to underlying pulmonary disease with superimposed acute on chronic combined CHF. CHF: On admission patient hypervolemic on exam-- weight gain of at least 10-15 lbs. Payne placed Started on IV furosemide and titrated to 40 mg IV BID Spironolactone resumed at 25 mg daily. Volume status improving Respiratory status improving. Continue one more day of IV diuretics. Likely transition to oral diuretics prior to discharge in 24-48 hours. Monitor renal function and electrolytes with daily BMP. K goal of 4.0 and mag goal of 2.0-- replace as needed. Continue GDMT-- Metoprolol tartrate transitioned to metoprolol succinate 25 mg Chronic hypoxic respiratory failure: Supportive measures per primary team. She is still on trach collar with supplemental O2. Per patient, she only wears oxygen at night to sleep, not during the day. This needs evaluated prior to discharge to see if she is going to require O2 /. Case discussed with Dr. Mendoza I spent a total of 35 minutes on the date of service in preparation, delivery, and documentation of the care provided to this patient, excluding any time spent in the performance of separately billed services. Nataliya Kennedy PA-C Department of Cardiology, [facility] This chart was completed in part utilizing Speech Voice Recognition Software. Grammatical errors, random word insertions, pronoun errors, and incomplete sentences are an occasional consequence of this system due to software limitations, ambient noise, and hardware issues. Any formal questions or concerns about the content, text, or information contained within the body of this dictation should be directly addressed to the provider for clarification. Admission and Anticipated Discharge Date Admission Date: October 17, 2023 Supervising Physician Co-Signing Physician Notes Patient seen examined the bedside. Continues to diurese with 1.5L over past 24 hours and 8L since admission. Renal function and electrolytes remained stable. Denies chest pain or shortness of breath. Orthopnea and edema improved. Telemetry reveals sinus rhythm 70s-90 bpm. PE: VSS. Gen: NAD, morbid obesity. Heart: Regular rhythm, normal S1-S2. Distant heart sounds. No murmur. Lungs: Diminished breath sounds bilaterally. No rhonchi or wheeze. Abdomen: Soft, 1+ pitting pannus edema. Ext: 1+ pretibial edema. A/P: Agree with above PA-C history, physical exam, assessment and plan. Continue IV diuresis with Lasix 40 mg twice daily, Aldactone, and potassium supplementation as ordered. Follow daily weight, fluid balance, GFR, and electrolytes. Consider transition to oral diuretic therapy in the next 24 to 48 hours. Continue metoprolol, lisinopril, and isosorbide monohydrate as ordered. Subjective Patient evaluated in bed. Reports her SOB improved over the last 24 hours. Nearing baseline in regards to her respiratory status. however she reports her baseline weight is around 350 lbs. Currently 390 according to bedscale this morning. Was 410 upon admission. Still requiring supplemental O2 via trach collar. At home, she only wears supplemental O2 at night Review of Systems Review of Systems: All systems reviewed & are unremarkable except as noted in HPI & below Physical Exam Constitutional: + ill appearing and + morbidly obese; no acute distress Neck: normal visual inspection (Tracheostomy present ) and + thick neck Respiratory: no labored breathing Auscultation: + diminished lung sounds; no crackles and no rales Cardiovascular: Rate/Rhythm: regular rate and regular rhythm Heart Sounds: normal S1 and normal S2; no murmur (Distant heart sounds) Vessels: + JVD (unable to assess due to body habitis ) Extremities: + edema (+1 BLLE pitting edema ) Psychiatric: Orientation: alert and oriented x 3 Results & Data Vital Signs (Past 12 Hours) Vital Signs Temp Pulse Resp BP Pulse Ox O2 Del Method O2 Flow Rate 10/20/23 11:49 36.7 C 72 16 120/67 96 Trach Collar 10/20/23 11:11 79 18 95 Trach Collar 10/20/23 09:15 76 18 136/69 96 Nasal Cannula 6 10/20/23 07:47 82 17 95 Trach Collar 10/20/23 03:01 18 93 Trach Collar 6 10/20/23 02:52 36.7 C 77 20 133/72 93 Trach Collar 6 FiO2 10/20/23 11:49 10/20/23 11:11 28 10/20/23 09:15 10/20/23 07:47 28 10/20/23 03:01 28 10/20/23 02:52 Laboratory Results CBC 10/20/23 Range/Units 05:21 WBC 9.36 (4.8-10.8) K/ul RBC 4.13 L (4.20-5.40) M/uL Hgb 10.7 L (12.0-16.0) g/dl Hct 37.6 (37.0-47.0) % Plt Count 209 (130-400) K/uL Neut # (Auto) 6.63 H (1.40-6.50) K/uL Lymph # (Auto) 1.33 (1.20-3.40) K/uL [place] # (Auto) 0.96 H (0.11-0.59) K/uL Eos # (Auto) 0.35 (0.00-0.50) K/uL Baso # (Auto) 0.03 (0.00-0.20) K/uL Comprehensive Metabolic Panel 10/20/23 Range/Units 05:21 Sodium 139 (136-145) mmol/L Potassium 4.2 (3.5-5.1) mmol/L Chloride 102 (98-107) mmol/L Carbon Dioxide 33 H (21-32) mmol/L BUN 28 H (6-23) mg/dl Creatinine 1.49 H (0.6-1.2) mg/dl Glucose 74 (70-99(Fasting)) mg/dl Calcium 8.8 (8.6-10.3) mg/dl Intake and Output 10/19/23 10/20/23 10/20/23 22:59 06:59 14:59 Intake Total 100 / 200 Output Total 1724 Balance -1625 / -1525 Intake: Oral 100 / 100 Output: Urine Amount (Catheter) 1724 Payne/Indwelling 1724 Other: Weight 177.4 kg Weight Measurement Method Built in [facility] Diagnostic Findings Telemetry reviewed: NSR in the . occ PVC Chest xray today reviewed: IMPRESSION: 1. Cardiomegaly with mild pulmonary vascular congestion. This has improved from previous. 2. No airspace consolidation or large pleural effusion is identified Medications Administered Current Inpatient Medications Acetaminophen (Acetaminophen 500 Mg Tab) 1,000 mg PO Q8H PRN PRN Reason: Pain or Fever Stop: 11/17/23 14:43 Last Admin: 10/18/23 15:04 Dose: 1,000 mg Albuterol (Albut/Ipratrop 3mg/0.5mg Neb 3 Ml Vial) 3 ml INH Q4H PRN; Protocol PRN Reason: COUGHING, WHEEZING, SHORTNESS OF BREATH Stop: 11/16/23 16:18 Last Admin: 10/18/23 00:40 Dose: 3 ml Albuterol (Albuterol Hfa 8 Gm Inhaler (Combivent Respimat P&T Subs)) 1 puffs INH QIDR ASIYA; Protocol Stop: 11/16/23 18:59 Last Admin: 10/20/23 11:11 Dose: 1 puffs Aspirin (Aspirin 81 Mg Ectab) 81 mg PO QAM ASIYA Stop: 11/17/23 08:59 Last Admin: 10/20/23 08:50 Dose: 81 mg Atorvastatin Calcium (Atorvastatin 40 Mg Tab) 40 mg PO QPM ASIYA Stop: 11/16/23 20:59 Last Admin: 10/19/23 20:50 Dose: 40 mg Azithromycin (Azithromycin 250 Mg Tab) 250 mg PO MoWeFr@0900 [facility] Stop: 11/18/23 08:59 Last Admin: 10/19/23 08:12 Dose: 250 mg Bupropion HCl (Bupropion Sr 100 Mg Tabcr) 200 mg PO PM ASIYA Stop: 11/16/23 20:59 Last Admin: 10/19/23 20:51 Dose: 200 mg Dextrose (Dextrose 50% 50 Ml Syringe) 25 - 50 ml IV UD PRN; Protocol PRN Reason: Hypoglycemia Protocol Stop: 11/16/23 14:06 Enoxaparin Sodium (Enoxaparin Inj 40 Mg/0.4 Ml Syr) 40 mg SQ BID [facility] Stop: 11/17/23 10:59 Last Admin: 10/20/23 08:51 Dose: 40 mg Fentanyl (Fentanyl 12 Mcg/Hr Tdsy) 12 mcg TD Q72H [facility] Stop: 10/31/23 17:59 Last Admin: 10/17/23 20:03 Dose: 12 mcg Furosemide (Furosemide 40 Mg/4 Ml Vial) 40 mg IV BID17 ASIYA Stop: 11/16/23 16:59 Last Admin: 10/20/23 08:50 Dose: 40 mg Glucagon (Glucagon For Inj 1 Mg Vial) 1 mg SQ UD PRN; Protocol PRN Reason: Hypoglycemia Protocol Stop: 11/16/23 14:06 Glucose (Glucose 40% Gel 15 Gm Tube) 15 - 30 gm PO UD PRN; Protocol PRN Reason: Hypoglycemia Protocol Stop: 11/16/23 14:06 Glucose (Glucose 10 Tab/Tube) 4 - 8 tab PO UD PRN; Protocol PRN Reason: Hypoglycemia Treatment Stop: 11/16/23 14:06 Acetaminophen (Ofirmev) 1,000 mg in 100 mls @ 400 mls/hr IV Q8H PRN PRN Reason: Pain or Fever Stop: 10/21/23 14:54 Insulin Aspart (Insulin, Rapid-Acting Pump) 1 each N/A ACHS [facility]; Protocol Stop: 11/18/23 17:59 Last Admin: 10/20/23 10:12 Dose: 1 each Insulin Aspart (Insulin Aspart 100 Units/Ml Vial) 0 units SC PRN PRN PRN Reason: Pump Refill Use ONLY Stop: 11/18/23 17:59 Ipratropium [place] (Ipratropium Hfa Inhaler (Combivent Respimat P&T Subs)) 1 puffs INH QIDR [facility]; Protocol Stop: 11/16/23 18:59 Last Admin: 10/20/23 11:11 Dose: 1 puffs Isosorbide Mononitrate (Isosorbide [place] Extended Rel 30 Mg Tabcr) 30 mg PO QAM [facility] Stop: 11/17/23 08:59 Last Admin: 10/20/23 08:50 Dose: 30 mg Levothyroxine Sodium (Levothyroxine Sodium 75 Mcg Tablet) 225 mcg PO DAILYBB [facility] Stop: 11/17/23 06:29 Last Admin: 10/20/23 05:53 Dose: 225 mcg Magnesium Oxide (Magnesium Oxide 400 Mg Tab) 400 mg PO QAM ASIYA Stop: 11/17/23 08:59 Last Admin: 10/20/23 08:50 Dose: 400 mg Melatonin (Melatonin 3 Mg Tab) 6 mg PO HS [facility] Stop: 11/16/23 20:59 Last Admin: 10/19/23 20:42 Dose: 6 mg Metoprolol Succinate (Metoprolol Succ 25mg Ext Rel Tab) 25 mg PO QAM [facility] Stop: 11/19/23 08:59 Last Admin: 10/20/23 08:49 Dose: 25 mg Miscellaneous (Carbohydrates For Hypoglycemia ) 15 - 30 gm PO UD PRN PRN Reason: Hypoglycemia Protocol Stop: 11/16/23 14:06 Last Admin: 10/19/23 20:29 Dose: 15 gm Miscellaneous (Fentanyl Patch Remove & Waste) 1 each N/A Q3D [facility] Stop: 11/16/23 17:44 Last Admin: 10/17/23 17:45 Dose: 1 each Miscellaneous (Check Fentanyl Patch Placement) 1 each N/A QS [facility] Stop: 11/17/23 00:00 Last Admin: 10/20/23 08:48 Dose: 1 each Miscellaneous Information (Pharmacy Glycemic Mgmt Consult) 1 each N/A UD PRN PRN Reason: Consult Stop: 11/16/23 14:06 Naloxone HCl (Naloxone Hcl 0.4 Mg/1 Ml Vial/Carp) 0.4 mg IV Q5M PRN PRN Reason: oversedation Stop: 11/16/23 18:56 Oxycodone HCl (Oxycodone Hcl Ir 5 Mg Tab (Immediate Release)) 5 mg PO Q6H PRN PRN Reason: Moderate Pain 4-6/10 Stop: 11/01/23 14:43 Pantoprazole Sodium (Pantoprazole 40 Mg Tab) 40 mg PO DAILYBB [facility] Stop: 11/17/23 06:29 Last Admin: 10/20/23 05:53 Dose: 40 mg Potassium Chloride (Potassium Chloride Crtab 20 Meq Tabcr) 20 meq PO BID [facility] Stop: 11/16/23 20:59 Last Admin: 10/20/23 08:48 Dose: 20 meq Sertraline HCl (Sertraline Hcl 50 Mg Tablet) 50 mg PO QAM [facility] Stop: 11/17/23 08:59 Last Admin: 10/20/23 08:49 Dose: 50 mg Sodium Chloride (Sodium Chlor 7% 4 Ml Neb) 4 ml NEB BIDR PRN PRN Reason: Congestion Stop: 11/17/23 18:59 Spironolactone (Spironolactone 25 Mg Tab) 25 mg PO QAM [facility] Stop: 11/17/23 08:59 Last Admin: 10/20/23 08:49 Dose: 25 mg Topiramate (Topiramate 100 Mg Tab) 100 mg PO QAM [facility]SIYA Stop: 11/17/23 08:59 Last Admin: 10/20/23 08:49 Dose: 100 mg (2) Right heart failure Heart failure chronicity: acute on chronic Qualified Code(s): I50.813 - Acute on chronic right heart failure
--- NOTE | 2023-10-20 16:07 | Hospitalist Progress Note ---
Date of Service October 20, 2023 Assessment & Plan (1) Acute on chronic hypoxic respiratory failure: Plan: Supplemental oxygen per permanent tracheostomy to maintain saturation greater than 90%. Wean down to previous oxygen requirements as CHF resolves. (2) Acute on chronic combined systolic (congestive) and diastolic (congestive) heart failure: Plan: Responding nicely to parenteral Lasix therapy. Chest x-ray done today, October 20, looks better. Cardiology consultation and recommendations appreciated (3) Generalized weakness: Plan: Supportive care. OT and PT assessments requested. (4) Insulin-requiring or dependent type II diabetes mellitus: Plan: Insulin pump has been restarted. ADA diet. Sliding scale coverage as necessary. (5) Fracture of distal end of right femur: Plan: Has been a chronic issue and deemed inoperable by previous tertiary care centers . Supportive care (6) Anxiety: Plan: Stable. Continue sertraline and bupropion (7) Hypothyroidism (acquired): Plan: Stable. Continue levothyroxine (8) Chronic pain: Plan: Stable. Continue home fentanyl patch . Plan Hopeful discharge to home soon. Possibly this weekend Admission and Anticipated Discharge Date Admission Date: October 17, 2023 Subjective Alert and oriented. No distress. Chest x-ray done today, October 20, looks better. She is responding nicely to parenteral Lasix with brisk diuresis. Creatinine stable at 1.4 and potassium 4.2. OT and PT assessments requested per case management request. Daily lab ordered Review of Systems 2 Review of Systems: Constitutional-no fever or chills ENT-no blurred vision, no double vision, no epistaxis, no sore throat Respiratory-no cough, no wheezing. Shortness of breath with minimal exertion Cardiac-no palpitations, no chest pain, no syncope GI-no nausea, vomiting, diarrhea, melena, hematochezia -no urinary retention, no urinary incontinence, no dysuria, no hematuria Musculoskeletal-no joint pain, no muscle tenderness Skin-no bruising, no rashes, no pruritus Neuro-no isolated weakness, no paresthesia, no weakness Psych-no depression, no anxiety Physical Exam 2 Physical Exam: General-alert and oriented x3, no fevers, no chills. Morbidly obese HEENT-head atraumatic and normocephalic, pupils equal and reactive to light, extraocular muscles intact Neck-no lymphadenopathy or thyromegaly, trachea midline. Permanent tracheostomy in place Chest-diminished breath sounds bilaterally. No rales, wheezing or rhonchi Cardiac-regular rate and rhythm, normal S1 and S2 Abdomen-normal bowel sounds, nontender, no hepatosplenomegaly Extremities-chronic appearing nonpitting edema bilateral lower extremities Neuro-cranial nerves II through XII intact, motor and sensory function within normal limits, strength symmetrical, no focal deficits Psych-normal affect, normal mood Results & Data Results & Data Vital Signs (Past 12 Hours) Vital Signs Temp Pulse Pulse Resp BP Pulse Ox O2 Del Method 10/20/23 15:43 82 17 96 Trach Collar 10/20/23 15:31 36.7 C 83 18 133/74 94 Room Air 10/20/23 11:49 36.7 C 72 16 120/67 96 Trach Collar 10/20/23 11:11 79 18 95 Trach Collar 10/20/23 09:15 76 18 136/69 96 Nasal Cannula 10/20/23 07:47 82 17 95 Trach Collar 10/20/23 07:00 74 O2 Flow Rate FiO2 10/20/23 15:43 28 10/20/23 15:31 10/20/23 11:49 10/20/23 11:11 28 10/20/23 09:15 6 10/20/23 07:47 28 10/20/23 07:00 Laboratory Results 10/20/23 05:21 10/20/23 05:21 PG Care Time/CCT Total # of Minutes Spent Total Time Spent with Patient: Total time spent is greater than 50% in coordination of care (as documented) at patient's floor/unit and/or counseling patient: Coding Level of Care Code 42189 SUB INP/OBS CARE 3/50MIN Diagnoses Acute on chronic hypoxic respiratory failure J96.21 Acute on chronic combined systolic (congestive) and diastolic (congestive) heart failure I50.43 Generalized weakness R53.1 Insulin-requiring or dependent type II diabetes mellitus E11.9; Z79.4 Fracture of distal end of right femur S72.401A Anxiety F41.9 Hypothyroidism (acquired) E03.9 Chronic pain G89.29
[2023-10-20] MEDS: fentaNYL 12 MCG/HR TDSY TD SCH (17:23)
[2023-10-20] MEDS: buPROPion SR 100 MG TABCR PO SCH (21:31)
[2023-10-20] MEDS: ATORVASTATIN 40 MG TAB PO SCH (21:31)
[2023-10-20] MEDS: MELATONIN 3 MG TAB PO SCH (21:32)
[2023-10-20] MEDS: ACETAMINOPHEN 500 MG TAB PO PRN (21:51)
[2023-10-21] MEDS: CHECK fentaNYL PATCH PLACEMENT SCH ×4 (01:52→23:23)
[2023-10-21] MEDS: Albuterol HFA 8 GM Inhaler (Combivent Respimat P&T Subs) INH SCH ×6 (02:14→23:43)
[2023-10-21] MEDS: Ipratropium HFA Inhaler (Combivent Respimat P&T Subs) INH SCH ×6 (02:14→23:43)
[2023-10-21] MEDS: LEVOTHYROXINE SODIUM 75 MCG TABLET PO SCH (06:11)
[2023-10-21] MEDS: PANTOprazole 40 MG TAB PO SCH (06:11)
[2023-10-21 06:32] LABS: BUN Creatinine Ratio 19.3 (10-20); Calcium 8.7 mg/dl (8.6-10.3); Est GFR (African American) 43.1 ml/min; Est GFR (Non-African American) 37.2 ml/min; Potassium 4.1 mmol/L (3.5-5.1)
[2023-10-21] MEDS: INSULIN, Rapid-Acting PUMP SCH ×4 (09:33→21:11)
[2023-10-21] MEDS: TOPIRAMATE 100 MG TAB PO SCH (09:34)
[2023-10-21] MEDS: ASPIRIN 81 MG ECTAB PO SCH (09:34)
[2023-10-21] MEDS: ENOXAPARIN INJ 40 MG/0.4 ML SYR SQ SCH ×2 (09:34→21:09)
[2023-10-21] MEDS: MAGNESIUM OXIDE 400 MG TAB PO SCH (09:34)
[2023-10-21] MEDS: METOPROLOL SUCC 25MG EXT REL TAB PO SCH (09:34)
[2023-10-21] MEDS: ISOSORBIDE MONO EXTENDED REL 30 MG TABCR PO SCH (09:34)
[2023-10-21] MEDS: AZITHROMYCIN 250 MG TAB PO SCH (09:34)
[2023-10-21] MEDS: SERTRALINE HCL 50 MG TABLET PO SCH (09:34)
[2023-10-21] MEDS: POTASSIUM CHLORIDE CRTAB 20 MEQ TABCR PO SCH ×2 (09:35→21:13)
[2023-10-21] MEDS: FUROSEMIDE 40 MG/4 ML VIAL IV SCH ×2 (09:40→18:00)
--- NOTE | 2023-10-21 09:50 | Cardiology Progress Note ---
Date of Service October 21, 2023 Assessment & Plan (1) Acute on chronic combined systolic (congestive) and diastolic (congestive) heart failure: (2) Right heart failure: (3) Obesity hypoventilation syndrome: (4) Chronic hypoxic respiratory failure: (5) Tracheostomy in place: Plan Ongoing evidence of acute decompensated right heart failure, chronic hypoxic respiratory failure with tracheostomy, pickwickian physiology - Continue IV diuresis, IV furosemide as prescribed, along with oral spironolactone and Payne catheter for accurate measurement of I's and O's - Daily metabolic panels, maintaining normokalemia and normomagnesemia. - Continue Jardiance, evidence-based beta-nicolle therapy, aspirin, moderate intensity statin therapy Admission and Anticipated Discharge Date Admission Date: October 17, 2023 Supervising Physician Co-Signing Physician Notes Patient seen examined the bedside. Continues to diurese with 2.8L over past 24 hours and 10L since admission. Renal function and electrolytes remained stable. Denies chest pain or shortness of breath. Orthopnea and edema improved. Telemetry reveals sinus rhythm 70s-90 bpm. PE: VSS. Gen: NAD, morbid obesity. Heart: Regular rhythm, normal S1-S2. Distant heart sounds. No murmur. Lungs: Diminished breath sounds bilaterally. + expiratory wheeze. Abdomen: Soft, 1+ pitting pannus edema. Ext: 1+ pretibial edema. A/P: Agree with above PA-C history, physical exam, assessment and plan. Continue IV diuresis with Lasix 40 mg twice daily, Aldactone, and potassium supplementation as ordered. Follow daily weight, fluid balance, GFR, and electrolytes. Continue metoprolol, lisinopril, and isosorbide monohydrate as ordered. Wean supplemental oxygen as tolerated. Subjective Patient seen and examined. Chart, medications, telemetry reviewed. Feels maybe a little bit better this morning in regards to her breathing though notes ongoing difficulty as well as ongoing fluid I/O's: -3,310, -3,175, -1,525, and -2,870 mL (-10,880 mL's overall) Weights recorded as 186.2 kg on admission and 177.2 kg this morning. No chest pain. No palpitations. No dizziness or syncope. No subjective fevers or chills. Telemetry: Sinus rhythm occasional ventricular ectopy, heart rates predominantly in the 70s and 80s. AM Labs stable Review of Systems Review of Systems: Complete review of systems is otherwise as stated above, negative, noncontributory Physical Exam Physical Exam: General: A&Ox3. NAD. + Obese. HENT: Normocephalic. Atraumatic. Eyes: PER. Conjunctiva pink, sclera clear. Neck: + Trach Heart: RRR. No murmur appreciated. Lungs: Diminished. Decreased. Right basilar rales. Diffuse expiratory wheezing. Abdomen: +BS. Somewhat firm. Nontender. Extremities: 2+ edema. No clubbing. No cyanosis. Limited neurological examination is without focal deficits. Pulses: Posterior tibial=1/4. Results & Data Vital Signs (Past 12 Hours) Vital Signs Temp Pulse Pulse Resp BP Pulse Ox O2 Del Method 10/21/23 07:34 36.5 C 71 19 146/77 H 95 Trach Collar 10/21/23 07:31 63 15 97 Trach Collar 10/21/23 02:56 36.7 C 76 18 117/79 96 Trach Collar 10/21/23 02:15 78 18 94 Trach Collar 10/20/23 23:34 85 10/20/23 23:26 36.9 C 121 H 18 125/71 95 Trach Collar 10/20/23 22:23 18 94 Trach Collar 10/20/23 21:58 78 O2 Flow Rate FiO2 10/21/23 07:34 10/21/23 07:31 10 28 10/21/23 02:56 10/21/23 02:15 28 10/20/23 23:34 10/20/23 23:26 10/20/23 22:23 28 10/20/23 21:58 Laboratory Results Comprehensive Metabolic Panel 10/21/23 Range/Units 05:35 Sodium 141 (136-145) mmol/L Potassium 4.1 (3.5-5.1) mmol/L Chloride 103 (98-107) mmol/L Carbon Dioxide 34 H (21-32) mmol/L BUN 28 H (6-23) mg/dl Creatinine 1.45 H (0.6-1.2) mg/dl Glucose 68 L (70-99(Fasting)) mg/dl Calcium 8.7 (8.6-10.3) mg/dl Intake and Output 11/10/21/23 10/21/23 22:59 06:59 14:59 Intake Total 50 / 530 Output Total 1350 / 3400 400 / 3400 Balance -1350 / -2870 -350 / -2870 Intake: Oral 50 / 530 Output: Urine Amount (Catheter) 1350 / 3400 400 / 3400 Payne/Indwelling 1350 / 3400 400 / 3400 Other: Weight 177.2 kg Weight Measurement Method Built in [facility] I spent a total of 40 minutes on the date of service in preparation, delivery, and documentation of the care provided to this patient, excluding any time spent in the performance of separately billed services. (2) Right heart failure Heart failure chronicity: acute on chronic Qualified Code(s): I50.813 - Acute on chronic right heart failure
[2023-10-21] MEDS: SPIRONOLACTONE 25 MG TAB PO SCH (12:03)
--- NOTE | 2023-10-21 15:16 | Hospitalist Progress Note ---
Date of Service October 21, 2023 Assessment & Plan (1) Acute on chronic hypoxic respiratory failure: Plan: Supplemental oxygen per permanent tracheostomy to maintain saturation greater than 90%. Weaning down to previous oxygen requirements as CHF resolves. (2) Acute on chronic combined systolic (congestive) and diastolic (congestive) heart failure: Plan: Responding nicely to parenteral Lasix therapy. Chest x-ray done on October 20 looked better. Will repeat portable chest x-ray again tomorrowOctober 22. Cardiology consultation and recommendations appreciated (3) Generalized weakness: Plan: Supportive care. OT and PT assessments (4) Insulin-requiring or dependent type II diabetes mellitus: Plan: Insulin pump has been restarted. ADA diet. Sliding scale coverage as necessary. (5) Fracture of distal end of right femur: Plan: Has been a chronic issue and deemed inoperable by previous tertiary care centers . Supportive care (6) Anxiety: Plan: Stable. Continue sertraline and bupropion (7) Hypothyroidism (acquired): Plan: Stable. Continue levothyroxine (8) Chronic pain: Plan: Stable. Continue home fentanyl patch . (9) Demand ischemia: Plan: Mild troponin elevation due to demand ischemia. No chest pain. No acute EKG changes. Plan Hopeful discharge to home soon. Possibly tomorrOctober 22 Admission and Anticipated Discharge Date Admission Date: October 17, 2023 Subjective Alert and oriented. She is not pleased that we are asking her to demonstrate her ability to transfer to a chair. Continued brisk urine output with intravenous Lasix. Will repeat chest x-ray again tomorrowOctober 22. She is asking to go back home tomorrow. Review of Systems 2 Review of Systems: Constitutional-no fever or chills ENT-no blurred vision, no double vision, no epistaxis, no sore throat Respiratory-no cough, no wheezing. Shortness of breath with minimal exertion Cardiac-no palpitations, no chest pain, no syncope GI-no nausea, vomiting, diarrhea, melena, hematochezia -no urinary retention, no urinary incontinence, no dysuria, no hematuria Musculoskeletal-no joint pain, no muscle tenderness Skin-no bruising, no rashes, no pruritus Neuro-no isolated weakness, no paresthesia, no weakness Psych-no depression, no anxiety Physical Exam 2 Physical Exam: General-alert and oriented x3, no fevers, no chills. Morbidly obese HEENT-head atraumatic and normocephalic, pupils equal and reactive to light, extraocular muscles intact Neck-no lymphadenopathy or thyromegaly, trachea midline. Permanent tracheostomy in place Chest-diminished breath sounds bilaterally. No rales, wheezing or rhonchi Cardiac-regular rate and rhythm, normal S1 and S2 Abdomen-normal bowel sounds, nontender, no hepatosplenomegaly Extremities-chronic appearing nonpitting edema bilateral lower extremities Neuro-cranial nerves II through XII intact, motor and sensory function within normal limits, strength symmetrical, no focal deficits Psych-normal affect, normal mood Results & Data Results & Data Vital Signs (Past 12 Hours) Vital Signs Temp Pulse Pulse Resp BP Pulse Ox Pulse Ox 10/21/23 12:47 94 10/21/23 10:28 76 20 98 10/21/23 10:18 77 10/21/23 10:18 10/21/23 07:34 36.5 C 71 19 146/77 H 95 10/21/23 07:31 63 15 97 O2 Del Method O2 Flow Rate O2 Flow Rate FiO2 10/21/23 12:47 2 10/21/23 10:28 Trach Collar 9 28 10/21/23 10:18 10/21/23 10:18 Trach Collar 8 10/21/23 07:34 Trach Collar 10/21/23 07:31 Trach Collar 10 28 Laboratory Results 10/20/23 05:21 10/21/23 05:35 PG Care Time/CCT Total # of Minutes Spent Total Time Spent with Patient: Total time spent is greater than 50% in coordination of care (as documented) at patient's floor/unit and/or counseling patient: Coding Level of Care Code 12347 SUB INP/OBS CARE 2/35MIN Diagnoses Acute on chronic hypoxic respiratory failure J96.21 Acute on chronic combined systolic (congestive) and diastolic (congestive) heart failure I50.43 Generalized weakness R53.1 Insulin-requiring or dependent type II diabetes mellitus E11.9; Z79.4 Fracture of distal end of right femur S72.401A Anxiety F41.9 Hypothyroidism (acquired) E03.9 Chronic pain G89.29 Demand ischemia I24.89
[2023-10-21] MEDS: ACETAMINOPHEN 500 MG TAB PO PRN (21:08)
[2023-10-21] MEDS: ATORVASTATIN 40 MG TAB PO SCH (21:09)
[2023-10-21] MEDS: MELATONIN 3 MG TAB PO SCH (21:09)
[2023-10-21] MEDS: buPROPion SR 100 MG TABCR PO SCH (21:09)
[2023-10-21] MEDS ORDERED: ALUMINUM/MAGNESIUM SUSP 30 ML UDC PO ONE (22:46)
[2023-10-22] MEDS: Albuterol HFA 8 GM Inhaler (Combivent Respimat P&T Subs) INH SCH ×5 (03:40→20:30)
[2023-10-22] MEDS: Ipratropium HFA Inhaler (Combivent Respimat P&T Subs) INH SCH ×5 (03:40→20:30)
[2023-10-22] MEDS: LEVOTHYROXINE SODIUM 75 MCG TABLET PO SCH (05:55)
[2023-10-22] MEDS: PANTOprazole 40 MG TAB PO SCH (05:55)
[2023-10-22 06:02] LABS: BUN Creatinine Ratio 18.6 (10-20); Calcium 8.7 mg/dl (8.6-10.3); Est GFR (Non-African American) 32.8 ml/min; Potassium 4.3 mmol/L (3.5-5.1)
--- NOTE | 2023-10-22 07:33 | Cardiology Progress Note ---
Date of Service October 22, 2023 Assessment & Plan (1) Acute on chronic combined systolic (congestive) and diastolic (congestive) heart failure: (2) Right heart failure: (3) Obesity hypoventilation syndrome: (4) Chronic hypoxic respiratory failure: (5) Tracheostomy in place: Plan IMPRESSION: Medically complex 68-year-old female Ongoing evidence of acute decompensated right heart failure, chronic hypoxic respiratory failure with tracheostomy, pickwickian physiology PLAN: Combined CHF/RHF: -Slight increase in serum creatinine. Possibly due to restarting Jardiance, expected. Patient -13 L total overall. -Continue diuresis with IV Lasix. Okay to continue oral spironolactone. -Payne catheter for accurate measurement of I's and O's -Daily metabolic panels, maintaining normokalemia and normomagnesemia. -Continue Jardiance, evidence-based beta-nicolle therapy, aspirin, moderate intensity statin therapy Case discussed with Dr. Hernandez, will follow. Admission and Anticipated Discharge Date Admission Date: October 17, 2023 Supervising Physician Co-Signing Physician Notes Patient was seen and personally examined Evaluation and assessment as above Still examines as volume overloaded agree with continued IV diuresis. Review renal function in a.m. Subjective Medically complex 68 year old female who presented to [facility] ED due to a fall from progressive weakness at home. Found to be in acute on chronic combined CHF + RHF. Patient has chronic hypoxic respiratory failure with a tracheostomy. 10/17/2023: Diuresed with IV Lasix 40 mg twice daily Echo technically limited, EF 55 to 60%. RV mildly dilated with moderately reduced systolic function, dilated IVC. 10/18/2023 IV Lasix 40 mg twice daily continued Spironolactone 25 mg daily resumed 10/19/2023: IV Lasix 40 mg twice daily and spironolactone continued Metoprolol titrate transition to metoprolol succinate 25 mg daily 10/20/2023: Diuretics continued. Patient responding with improved volume status 10/21/2023: IV Lasix 40 mg twice daily, spironolactone 25 mg daily continued Jardiance restarted 10/22/2023: Telemetry: Sinus rhythm occasional ventricular ectopy, heart rates predominantly in the 70s and 80s. I/O's: -3,310, -3,175, -1,525, -2,870 mL, and 2,546 mL (-13,426 mLs overall) Weight: 186.2 kg >> 175.4 kg (10/22) Labs: slight increase in scr this am 1.3/1.4 >>1.61 Patient seen and examined. Chart, medications, telemetry reviewed. Continues to feel better each morning, but noting ongoing shortness of breath and cough. No chest pain. No palpitations. No dizziness or syncope. No subjective fevers or chills. Review of Systems Review of Systems: All systems reviewed & are unremarkable except as noted in HPI & below Physical Exam Physical Exam: General: A&Ox3. NAD. + Obese. HENT: Normocephalic. Atraumatic. Eyes: PER. Conjunctiva pink, sclera clear. Neck: + Trach Heart: RRR. No murmur appreciated. Lungs: Diminished. Decreased. Right basilar rales. Diffuse expiratory wheezi ng. Abdomen: +BS. Somewhat firm. Nontender. Extremities: 2+ edema. No clubbing. No cyanosis. Limited neurological examination is without focal deficits. Pulses: Posterior tibial=1/4. Results & Data Vital Signs (Past 12 Hours) Vital Signs Temp Pulse Pulse Resp BP Pulse Ox O2 Del Method 10/22/23 03:40 79 18 95 Aerosol Mask 10/22/23 03:16 36.7 C 77 18 123/66 91 Trach Collar 10/21/23 23:56 Trach Collar 10/21/23 23:44 72 18 96 Trach Collar 10/21/23 23:30 75 10/21/23 23:28 36.8 C 62 18 95 Trach Collar 10/21/23 20:05 83 16 96 Aerosol Mask 10/21/23 19:43 36.7 C 82 20 161/67 H 96 Trach Collar O2 Flow Rate FiO2 10/22/23 03:40 10 28 10/22/23 03:16 9 10/21/23 23:56 10 10/21/23 23:44 9 28 10/21/23 23:30 12 23:28 9 10/21/23 20:05 10 28 10/21/23 19:43 9 Laboratory Results Comprehensive Metabolic Panel 10/22/23 Range/Units 05:11 Sodium 141 (136-145) mmol/L Potassium 4.3 (3.5-5.1) mmol/L Chloride 102 (98-107) mmol/L Carbon Dioxide 33 H (21-32) mmol/L BUN 30 H (6-23) mg/dl Creatinine 1.61 H (0.6-1.2) mg/dl Glucose 91 (70-99(Fasting)) mg/dl Calcium 8.7 (8.6-10.3) mg/dl Intake and Output 10/21/23 10/22/23 10/22/23 22:59 06:59 14:59 Intake Total 480 / 480 Output Total 2701 / 3026 325 / 3026 Balance -2221 / -2546 -325 / -2546 Intake: Oral 480 / 480 Output: Urine Amount (Catheter) 2700 / 3025 325 / 3025 Payne/Indwelling 2700 / 3025 325 / 3025 # Bowel Movements Other: Other Intake Source Sips Weight 175.4 kg Weight Measurement Method Patient Lift Scale (2) Right heart failure Heart failure chronicity: acute on chronic Qualified Code(s): I50.813 - Acute on chronic right heart failure
--- NOTE | 2023-10-22 07:42 | XRay Report ---
XR chest 1V portable CLINICAL HISTORY: Congestive heart failure. COMPARISON STUDY: Chest radiograph October 20, 2023. FINDINGS: Tracheostomy tube is in place. No pneumothorax. No definite pleural effusion is present. Ca rdiomegaly is unchanged. Pulmonary vascular congestion is again noted. IMPRESSION: No change in appearance of the chest. Cardiomegaly with pulmonary vascular congestion. ACT 112: Negative or not required by law. Electronically signed by: Toni Ohara M.D. 10/22/2023 7:41 AM
[2023-10-22] MEDS: ASPIRIN 81 MG ECTAB PO SCH (09:51)
[2023-10-22] MEDS: SERTRALINE HCL 50 MG TABLET PO SCH (09:52)
[2023-10-22] MEDS: SPIRONOLACTONE 25 MG TAB PO SCH (09:52)
[2023-10-22] MEDS: METOPROLOL SUCC 25MG EXT REL TAB PO SCH (09:52)
[2023-10-22] MEDS: MAGNESIUM OXIDE 400 MG TAB PO SCH (09:52)
[2023-10-22] MEDS: ISOSORBIDE MONO EXTENDED REL 30 MG TABCR PO SCH (09:52)
[2023-10-22] MEDS: INSULIN, Rapid-Acting PUMP SCH ×4 (09:52→21:04)
[2023-10-22] MEDS: TOPIRAMATE 100 MG TAB PO SCH (09:52)
[2023-10-22] MEDS: CHECK fentaNYL PATCH PLACEMENT SCH ×2 (09:53→18:40)
[2023-10-22] MEDS: ENOXAPARIN INJ 40 MG/0.4 ML SYR SQ SCH ×2 (09:53→21:02)
[2023-10-22] MEDS: POTASSIUM CHLORIDE CRTAB 20 MEQ TABCR PO SCH ×2 (09:55→21:02)
--- NOTE | 2023-10-22 14:45 | Hospitalist Progress Note ---
Date of Service October 22, 2023 Assessment & Plan (1) Acute on chronic hypoxic respiratory failure: Plan: Supplemental oxygen per permanent tracheostomy to maintain saturation greater than 90%. Wean down to previous oxygen requirements as CHF resolves. (2) Acute on chronic combined systolic (congestive) and diastolic (congestive) heart failure: Plan: Responding nicely to parenteral Lasix therapy. Chest x-ray done on October 20 looked better. Repeat portable chest x-ray again today, October 22. Cardiology consultation and recommendations appreciated (3) Generalized weakness: Plan: Supportive care. OT and PT assessments (4) Insulin-requiring or dependent type II diabetes mellitus: Plan: Insulin pump has been restarted. ADA diet. Sliding scale coverage as necessary. (5) Fracture of distal end of right femur: Plan: Has been a chronic issue and deemed inoperable by previous tertiary care centers . Supportive care (6) Anxiety: Plan: Stable. Continue sertraline and bupropion (7) Hypothyroidism (acquired): Plan: Stable. Continue levothyroxine (8) Chronic pain: Plan: Stable. Continue home fentanyl patch . (9) Demand ischemia: Plan: Mild troponin elevation due to demand ischemia. No chest pain. No acute EKG changes. Plan Hopeful discharge to home soon. Admission and Anticipated Discharge Date Admission Date: October 17, 2023 Subjective Alert and oriented. No distress. She still feels she has fluid to "get rid of" and wants to continue the parenteral Lasix while hospitalized. Creatinine bumped slightly to 1.6 and might continue to rise with diuresis. Will monitor daily labs. Otherwise stable Review of Systems 2 Review of Systems: Constitutional-no fever or chills ENT-no blurred vision, no double vision, no epistaxis, no sore throat Respiratory-no cough, no wheezing. Shortness of breath with minimal exertion Cardiac-no palpitations, no chest pain, no syncope GI-no nausea, vomiting, diarrhea, melena, hematochezia -no urinary retention, no urinary incontinence, no dysuria, no hematuria Musculoskeletal-no joint pain, no muscle tenderness Skin-no bruising, no rashes, no pruritus Neuro-no isolated weakness, no paresthesia, no weakness Psych-no depression, no anxiety Physical Exam 2 Physical Exam: General-alert and oriented x3, no fevers, no chills. Morbidly obese HEENT-head atraumatic and normocephalic, pupils equal and reactive to light, extraocular muscles intact Neck-no lymphadenopathy or thyromegaly, trachea midline. Permanent tracheostomy in place Chest-diminished breath sounds bilaterally. No rales, wheezing or rhonchi Cardiac-regular rate and rhythm, normal S1 and S2 Abdomen-normal bowel sounds, nontender, no hepatosplenomegaly Extremities-chronic appearing nonpitting edema bilateral lower extremities Neuro-cranial nerves II through XII intact, motor and sensory function within normal limits, strength symmetrical, no focal deficits Psych-normal affect, normal mood Results & Data Results & Data Vital Signs (Past 12 Hours) Vital Signs Temp Pulse Pulse Resp BP Pulse Ox O2 Del Method 10/22/23 12:10 36.6 C 76 20 147/75 H 97 Trach Collar 10/22/23 11:53 73 17 94 Trach Collar 10/22/23 07:50 36.6 C 75 20 147/74 H 94 Trach Collar 10/22/23 07:49 72 10/22/23 07:38 78 18 95 Trach Collar 10/22/23 03:40 79 18 95 Aerosol Mask 10/22/23 03:16 36.7 C 77 18 123/66 91 Trach Collar O2 Flow Rate FiO2 10/22/23 12:10 9 10/22/23 11:53 28 10/22/23 07:50 9 10/22/23 07:49 10/22/23 07:38 10 28 10/22/23 03:40 10 28 10/22/23 03:16 9 Laboratory Results 10/20/23 05:21 10/22/23 05:11 PG Care Time/CCT Total # of Minutes Spent Total Time Spent with Patient: Total time spent is greater than 50% in coordination of care (as documented) at patient's floor/unit and/or counseling patient: Coding Level of Care Code 05223 SUB INP/OBS CARE 2/35MIN Diagnoses Acute on chronic hypoxic respiratory failure J96.21 Acute on chronic combined systolic (congestive) and diastolic (congestive) heart failure I50.43 Generalized weakness R53.1 Insulin-requiring or dependent type II diabetes mellitus E11.9; Z79.4 Fracture of distal end of right femur S72.401A Anxiety F41.9 Hypothyroidism (acquired) E03.9 Chronic pain G89.29 Demand ischemia I24.89
[2023-10-22] MEDS: FUROSEMIDE 40 MG/4 ML VIAL IV SCH (18:39)
[2023-10-22] MEDS: ACETAMINOPHEN 500 MG TAB PO PRN (21:01)
[2023-10-22] MEDS: MELATONIN 3 MG TAB PO SCH (21:01)
[2023-10-22] MEDS: buPROPion SR 100 MG TABCR PO SCH (21:03)
[2023-10-22] MEDS: ATORVASTATIN 40 MG TAB PO SCH (21:03)
[2023-10-23] MEDS: CHECK fentaNYL PATCH PLACEMENT SCH ×4 (00:35→23:40)
[2023-10-23] MEDS: Albuterol HFA 8 GM Inhaler (Combivent Respimat P&T Subs) INH SCH ×5 (02:11→19:28)
[2023-10-23] MEDS: Ipratropium HFA Inhaler (Combivent Respimat P&T Subs) INH SCH ×5 (02:12→19:28)
[2023-10-23] MEDS: PANTOprazole 40 MG TAB PO SCH (05:46)
[2023-10-23] MEDS: LEVOTHYROXINE SODIUM 75 MCG TABLET PO SCH (05:46)
[2023-10-23 06:31] LABS: BUN Creatinine Ratio 22.1 (10-20); Calcium 8.7 mg/dl (8.6-10.3); Creatinine Clr Calc Pharmacy 62.1 ml/min; Est GFR (African American) 44.9 ml/min; Est GFR (Non-African American) 38.8 ml/min; Potassium 4.3 mmol/L (3.5-5.1)
[2023-10-23] MEDS: FUROSEMIDE 40 MG/4 ML VIAL IV SCH ×2 (10:00→17:49)
[2023-10-23] MEDS: SERTRALINE HCL 50 MG TABLET PO SCH (10:36)
[2023-10-23] MEDS: MAGNESIUM OXIDE 400 MG TAB PO SCH (10:36)
[2023-10-23] MEDS: ENOXAPARIN INJ 40 MG/0.4 ML SYR SQ SCH ×2 (10:36→20:27)
[2023-10-23] MEDS: INSULIN, Rapid-Acting PUMP SCH ×4 (10:37→20:27)
[2023-10-23] MEDS: ISOSORBIDE MONO EXTENDED REL 30 MG TABCR PO SCH (10:37)
[2023-10-23] MEDS: METOPROLOL SUCC 25MG EXT REL TAB PO SCH (10:38)
[2023-10-23] MEDS: SPIRONOLACTONE 25 MG TAB PO SCH (10:38)
[2023-10-23] MEDS: TOPIRAMATE 100 MG TAB PO SCH (10:38)
[2023-10-23] MEDS: ASPIRIN 81 MG ECTAB PO SCH (10:38)
[2023-10-23] MEDS: POTASSIUM CHLORIDE CRTAB 20 MEQ TABCR PO SCH ×2 (10:53→20:27)
--- NOTE | 2023-10-23 13:28 | Cardiology Progress Note ---
Date of Service October 23, 2023 Assessment & Plan (1) Acute on chronic combined systolic (congestive) and diastolic (congestive) heart failure: (2) Right heart failure: (3) Obesity hypoventilation syndrome: (4) Chronic hypoxic respiratory failure: (5) Tracheostomy in place: Plan IMPRESSION: Medically complex 68-year-old female Ongoing evidence of acute decompensated right heart failure, chronic hypoxic respiratory failure with tracheostomy, pickwickian physiology PLAN: Combined CHF/RHF: -Slight increase in serum creatinine. Possibly due to restarting Jardiance, expected. Patient -13 L total overall. -Continue diuresis with IV Lasix. Okay to continue oral spironolactone. -Payne catheter for accurate measurement of I's and O's -Daily metabolic panels, maintaining normokalemia and normomagnesemia. -Continue Jardiance, evidence-based beta-nicolle therapy, aspirin, moderate intensity statin therapy 10/23/2023 Still with persistent right greater than left heart failure diuresing but only limited change in weight We will add single dose of metolazone prior to next IV furosemide dose Follow renal function Admission and Anticipated Discharge Date Admission Date: October 17, 2023 Subjective Patient seen and examined, chart, telemetry reviewed Diuresing but weight remaining essentially steady still peripheral edema on examination Renal function stable No specific complaints or change Review of Systems Review of Systems: All systems reviewed & are unremarkable except as noted in Subjective Physical Exam Constitutional: + morbidly obese; no acute distress Neck: normal visual inspection (Tracheostomy present ) and + thick neck Trach in place Respiratory: + cough; no respiratory distress and no labored breathing Auscultation: + diminished lung sounds and + wheezes; no crackles and no rales Cardiovascular: Rate/Rhythm: regular rate and regular rhythm Heart Sounds: normal S1 and normal S2; no murmur (Distant heart sounds) Vessels: + JVD (unable to assess due to body habitis ) Extremities: + edema (+1 BLLE pitting edema ) Psychiatric: Orientation: alert and oriented x 3 Results & Data Vital Signs (Past 12 Hours) Vital Signs Temp Pulse Pulse Resp BP Pulse Ox O2 Del Method 10/23/23 11:11 79 17 94 Room Air, Trach Collar 10/23/23 08:07 36.6 C 82 20 139/69 94 Trach Collar 10/23/23 07:49 79 16 97 Trach Collar 10/23/23 07:27 84 10/23/23 03:05 36.7 C 72 18 158/61 H 94 Trach Collar 10/23/23 02:13 75 18 94 Trach Collar 10/23/23 01:36 Trach Collar 10/23/23 01:34 97 Trach Collar O2 Flow Rate FiO2 10/23/23 11:11 6 21 10/23/23 08:07 6 10/23/23 07:49 6 28 10/23/23 07:27 10/23/23 03:05 6 10/23/23 02:13 6 28 10/23/23 01:36 6 10/23/23 01:34 6 (2) Right heart failure Heart failure chronicity: acute on chronic Qualified Code(s): I50.813 - Acute on chronic right heart failure
--- NOTE | 2023-10-23 14:57 | Hospitalist Progress Note ---
Date of Service October 23, 2023 Assessment & Plan (1) Acute on chronic hypoxic respiratory failure: Plan: Supplemental oxygen per permanent tracheostomy to maintain saturation greater than 90%. She is down to her baseline oxygen requirement (2) Acute on chronic combined systolic (congestive) and diastolic (congestive) heart failure: Plan: Responding nicely to parenteral Lasix therapy. Chest x-ray done on October 20 looked better. Repeat portable chest x-ray on October 22 is underpenetrated with low volumes. Cardiology consultation and recommendations appreciated (3) Generalized weakness: Plan: Improved. Supportive care. OT and PT assessments appreciated (4) Insulin-requiring or dependent type II diabetes mellitus: Plan: Insulin pump has been restarted. ADA diet. Sliding scale coverage as necessary. (5) Fracture of distal end of right femur: Plan: Has been a chronic issue and deemed inoperable by previous tertiary care centers . Supportive care (6) Anxiety: Plan: Stable. Continue sertraline and bupropion (7) Hypothyroidism (acquired): Plan: Stable. Continue levothyroxine (8) Chronic pain: Plan: Stable. Continue home fentanyl patch . (9) Demand ischemia: Plan: Mild troponin elevation due to demand ischemia. No chest pain. No acute EKG changes. Plan Hopeful discharge to home tomorrow, October 24 Admission and Anticipated Discharge Date Admission Date: October 17, 2023 Subjective Alert and oriented. Pleasant. She continues to diurese significantly with intravenous Lasix. Creatinine stable at 1.4. She is on her usual oxygen requirement. Chest x-ray done October 22 is underpenetrated with low volumes and evidence of cardiomegaly. Interpretation by radiology was pulmonary vascular congestion but with low lung volumes and morbid obesity this is impossible to actually call. I told her I would prefer to get her out of the hospital tomorrow, October 24, back home. She seems to be agreeable. Review of Systems 2 Review of Systems: Constitutional-no fever or chills ENT-no blurred vision, no double vision, no epistaxis, no sore throat Respiratory-no cough, no wheezing. Shortness of breath with minimal exertion Cardiac-no palpitations, no chest pain, no syncope GI-no nausea, vomiting, diarrhea, melena, hematochezia -no urinary retention, no urinary incontinence, no dysuria, no hematuria Musculoskeletal-no joint pain, no muscle tenderness Skin-no bruising, no rashes, no pruritus Neuro-no isolated weakness, no paresthesia, no weakness Psych-no depression, no anxiety Physical Exam 2 Physical Exam: General-alert and oriented x3, no fevers, no chills. Morbidly obese HEENT-head atraumatic and normocephalic, pupils equal and reactive to light, extraocular muscles intact Neck-no lymphadenopathy or thyromegaly, trachea midline. Permanent tracheostomy in place Chest-diminished breath sounds bilaterally. No rales, wheezing or rhonchi Cardiac-regular rate and rhythm, normal S1 and S2 Abdomen-normal bowel sounds, nontender, no hepatosplenomegaly Extremities-chronic appearing nonpitting edema bilateral lower extremities Neuro-cranial nerves II through XII intact, motor and sensory function within normal limits, strength symmetrical, no focal deficits Psych-normal affect, normal mood Results & Data Results & Data Vital Signs (Past 12 Hours) Vital Signs Temp Pulse Pulse Resp BP Pulse Ox O2 Del Method 10/23/23 14:43 83 18 91 Room Air 10/23/23 12:00 36.7 C 72 18 137/70 91 Trach Collar 10/23/23 11:11 79 17 94 Room Air, Trach Collar 10/23/23 08:07 36.6 C 82 20 139/69 94 Trach Collar 10/23/23 07:49 79 16 97 Trach Collar 10/23/23 07:27 84 10/23/23 03:05 36.7 C 72 18 158/61 H 94 Trach Collar O2 Flow Rate FiO2 10/23/23 14:43 8 28 10/23/23 12:00 6 10/23/23 11:11 6 21 10/23/23 08:07 6 10/23/23 07:49 6 28 10/23/23 07:27 10/23/23 03:05 6 Laboratory Results 10/20/23 05:21 10/23/23 05:43 PG Care Time/CCT Total # of Minutes Spent Total Time Spent with Patient: Total time spent is greater than 50% in coordination of care (as documented) at patient's floor/unit and/or counseling patient: Coding Level of Care Code 20550 SUB INP/OBS CARE 2/35MIN Diagnoses Acute on chronic hypoxic respiratory failure J96.21 Acute on chronic combined systolic (congestive) and diastolic (congestive) heart failure I50.43 Generalized weakness R53.1 Insulin-requiring or dependent type II diabetes mellitus E11.9; Z79.4 Fracture of distal end of right femur S72.401A Anxiety F41.9 Hypothyroidism (acquired) E03.9 Chronic pain G89.29 Demand ischemia I24.89
[2023-10-23] MEDS: ACETAMINOPHEN 500 MG TAB PO PRN ×2 (15:36→23:39)
[2023-10-23] MEDS ORDERED: metOLazone 5 MG TABLET PO ONE (16:00)
[2023-10-23] MEDS: fentaNYL 12 MCG/HR TDSY TD SCH (17:48)
[2023-10-23] MEDS: MELATONIN 3 MG TAB PO SCH (20:26)
[2023-10-23] MEDS: ATORVASTATIN 40 MG TAB PO SCH (20:27)
[2023-10-23] MEDS: buPROPion SR 100 MG TABCR PO SCH (20:27)
[2023-10-24] MEDS: ALBUT/IPRATROP 3MG/0.5MG NEB 3 ML VIAL INH PRN (04:10)
[2023-10-24] MEDS: LEVOTHYROXINE SODIUM 75 MCG TABLET PO SCH (05:49)
[2023-10-24] MEDS: PANTOprazole 40 MG TAB PO SCH (05:49)
[2023-10-24 06:28] LABS: BUN Creatinine Ratio 21.3 (10-20); Calcium 9.2 mg/dl (8.6-10.3); Creatinine Clr Calc Pharmacy 55.7 ml/min; Est GFR (African American) 39.7 ml/min; Est GFR (Non-African American) 34.3 ml/min; Potassium 4.2 mmol/L (3.5-5.1)
[2023-10-24] MEDS: Albuterol HFA 8 GM Inhaler (Combivent Respimat P&T Subs) INH SCH ×3 (07:43→16:59)
[2023-10-24] MEDS: Ipratropium HFA Inhaler (Combivent Respimat P&T Subs) INH SCH ×3 (07:43→16:59)
[2023-10-24] MEDS: ASPIRIN 81 MG ECTAB PO SCH (08:55)
[2023-10-24] MEDS: MAGNESIUM OXIDE 400 MG TAB PO SCH (08:55)
[2023-10-24] MEDS: AZITHROMYCIN 250 MG TAB PO SCH (08:56)
[2023-10-24] MEDS: METOPROLOL SUCC 25MG EXT REL TAB PO SCH (08:56)
[2023-10-24] MEDS: SPIRONOLACTONE 25 MG TAB PO SCH (08:56)
[2023-10-24] MEDS: ENOXAPARIN INJ 40 MG/0.4 ML SYR SQ SCH (08:56)
[2023-10-24] MEDS: TOPIRAMATE 100 MG TAB PO SCH (08:57)
[2023-10-24] MEDS: ISOSORBIDE MONO EXTENDED REL 30 MG TABCR PO SCH (08:57)
[2023-10-24] MEDS: SERTRALINE HCL 50 MG TABLET PO SCH (08:57)
[2023-10-24] MEDS: POTASSIUM CHLORIDE CRTAB 20 MEQ TABCR PO SCH (09:19)
[2023-10-24] MEDS: FUROSEMIDE 40 MG/4 ML VIAL IV SCH (09:19)
[2023-10-24] MEDS: CHECK fentaNYL PATCH PLACEMENT SCH (09:21)
[2023-10-24] MEDS: INSULIN, Rapid-Acting PUMP SCH ×2 (09:22→13:33)
--- NOTE | 2023-10-24 12:15 | Discharge Summary ---
Date of Service October 24, 2023 Admission HPI Per Admitting Provider Whit is a 68yo Female with PMH morbid obesity with right femur fracture (non-operable) with chronic pain, nonambulatory status, tracheostomy dependent, COPD/chronic respiratory failure, HFrEF (LVEF of 45-50%), anxiety, DM2, GERD, CKD4, hypothyroidism, HTN, CAD who presented to the [facility] ED on 10/15 via EMS after sustaining a fall at home and recent generalized weakness. She was initially noted to be hypoxic at 87% on RA with a HR of 97 but otherwise stable. Labs were significant for a leukocytosis of 12 with neutrophile predominance of 10, lymphocyte count of 1.11, initial high sen trop of 25 with 2 hour repeat of 64, and negative full respiratory biofire. Chest xray was read as "Cardiomegaly with pulmonary vascular congestion. ". At the time of the exam the patient was sitting in bed in no acute distress with her caregiver sitting bedside, history was obtained from both. The patient and her caregiver explain that the patient has been experiencing progressive generalized weakness, increased tracheostomy secretions, and chest tightness. This am they were preparing for a PCP appointment, the patient is typically able to assist with transfers. This am she was too weak and fell forward while her c aregiver was trying to get her to her wheelchair. Her caregiver was able to essentially lower her to the ground, but her legs did bend behind her per her caregiver. The patient denies any new pain since her fall, her chronic right hip pain is at baseline. The patient states that she has been experiencing substernal/left sided chest "tightness" over the past 2-3 weeks. It can be constant and intermittent, typically a 5/10, and has not been significantly relieved or exacerbated that she can recall. She denies any other radiation of the pain, lightheadedness, diaphoresis, or heart palpitations. The patient states that EMS gave her 4 baby aspirin, a dose of nitroglycerine, and a breathing treatment in route. These treatments mildly improved her symptoms but she is still experiencing a 5/10 chest tightness at the time of my arrival. They do not check her weight at home and she is unsure if she has gained weight recently. She has been taking her spironolactone and torsemide as prescribed. S he uses prn O2 during the day and 5L oxygen HS. She is a full code and wishes for her daughter to make medical decisions for her if she cannot make them herself. Please refer to Dr. Smiley's attestation for any changes to the treatment plan Principal Diagnosis Acute on chronic respiratory failure, acute on chronic combined systolic and diastolic CHF, demand ischemia Discharge Exam General-alert and oriented x3, no fevers, no chills. Morbidly obese HEENT-head atraumatic and normocephalic, pupils equal and reactive to light, extraocular muscles intact Neck-no lymphadenopathy or thyromegaly, trachea midline. Permanent tracheostomy in place Chest-diminished breath sounds bilaterally. No rales, wheezing or rhonchi Cardiac-regular rate and rhythm, normal S1 and S2 Abdomen-normal bowel sounds, nontender, no hepatosplenomegaly Extremities-chronic appearing nonpitting edema bilateral lower extremities Neuro-cranial nerves II through XII intact, motor and sensory function within normal limits, strength symmetrical, no focal deficits Psych-normal affect, normal mood Discharge Data Allergies Allergy/AdvReac Type Severity Reaction Status Date / Time Penicillins Allergy Intermediate Hives Verified 09/01/23 10:43 amitriptyline Allergy Unknown ON EMBASSY Verified 09/01/23 10:43 OF [facility] MED LIST doxycycline Allergy Unknown ON EMBASSY Verified 09/01/23 10:43 OF [facility] MED LIST guaifenesin Allergy Unknown ON EMBASSY Verified 09/01/23 10:43 OF [facility] MED LIST metformin Allergy Unknown ON EMBASSY Verified 09/01/23 10:43 OF [facility] MED LIST phenylephrine Allergy Unknown ON EMBASSY Verified 09/01/23 10:43 OF [facility] MED LIST pseudoephedrine Allergy Unknown ON EMBASSY Verified 09/01/23 10:43 OF [facility] MED LIST tetracycline Allergy Unknown ON EMBASSY Verified 09/01/23 10:43 OF [facility] MED LIST venlafaxine [From Effexor] Allergy Unknown ON EMBASSY Verified 09/01/23 10:43 OF [facility] MED LIST gabapentin AdvReac Intermediate BECOMES Verified 09/01/23 10:43 AGGRESSIVE Consultations 10/17/23 13:11 ED Decision to Admit Stat 10/17/23 14:03 Consult Cardiology Routine Hospital Course (1) Acute on chronic hypoxic respiratory failure: Supplemental oxygen per permanent tracheostomy to maintain saturation greater than 90%. She is down to her baseline oxygen requirement (2) Acute on chronic combined systolic (congestive) and diastolic (congestive) heart failure: Responded nicely to parenteral Lasix therapy. Chest x-ray done on October 20 looked better. Repeat portable chest x-ray on October 22 is underpenetrated with low volumes. Cardiology consultation and recommendations appreciated. She will be switched to oral Lasix at discharge which replaces torsemide (3) Generalized weakness: Improved. Supportive care. OT and PT assessments appreciated (4) Insulin-requiring or dependent type II diabetes mellitus: Insulin pump has been restarted. ADA diet. Sliding scale coverage as necessary. (5) Fracture of distal end of right femur: Has been a chronic issue and deemed inoperable by previous tertiary care centers . Supportive care (6) Anxiety: Stable. Continue sertraline and bupropion (7) Hypothyroidism (acquired): Stable. Continue levothyroxine (8) Chronic pain: Stable. Continue home fentanyl patch . (9) Demand ischemia: Mild troponin elevation due to demand ischemia. No chest pain. No acute EKG changes. Plan Home today, October 24. Total Time Total Time Spent Total Time Spent (In Minutes): 45-minute Discharge Plan Discharge Items Patient Disposition: Home - Home Health Services Reason For Visit: FALL, WEAKNESS, ELEVATED TROPONIN, HYPOXIA Discharge Diagnosis: Acute on chronic respiratory failure, acute on chronic combined systolic and diastolic CHF, demand ischemia Activity: Resume your previous activity Non-emergency contact: Primary Care Provider Call non-emergency contact if: you have any medication questions and your symptoms worsen Follow-up/Referrals: Ofe Mcgee MD [Primary Care Provider] - Diet: Carb Consistent or DM2 and Heart Healthy Addtl Attending Provider Instructions: Furosemide (Lasix) replaces torsemide. Take furosemide in the early afternoon after lunch. All other medications remain the same Pending Studies at Discharge: No Stand-Alone Forms: My [employer], Smoking Cessation Medications and DC Order Prescriptions: New oxycodone 5 mg Tablet 5 mg PO Q6H PRN (Reason: pain) Qty: 20 0RF furosemide [Lasix] 80 mg tablet 80 mg PO DAILY Qty: 30 0RF fentanyl 12 mcg/hr patch 72 hour 1 patch transdermal Q72H Qty: 5 0RF Continued (DME) OneTouch Ultra Test Strip See Rx Instructions .Route Qty: 300 3RF Rx Instructions: As directed for times per day to monitor blood glucose (DME) blood-glucose meter [OneTouch Ultra2 Meter] Misc See Rx Instructions .Route Qty: 1 0RF Rx Instructions: As directed Jardiance 10 mg tablet 10 mg PO DAILY Qty: 30 5RF Rx Instructions: Take one tablet daily by mouth. insulin aspart U-100 [Novolog FlexPen U-100 Insulin] 100 unit/mL (3 mL) insulin pen 170 unit subcut DAILY MDD 170 Qty: 4 5RF Rx Instructions: To be used for pump failure. To be used for an insulin to carb ratio and to be used for a pre meal sliding scale. (DME) pen needle, diabetic [BD Kaitlin 2nd Gen Pen Needle] 32 gauge x 5/32" needle See Rx Instructions miscellaneous .MEDSUPPLY Qty: 50 0RF Rx Instructions: As directed insulin aspart U-100 [Novolog U-100 Insulin aspart] 100 unit/mL solution See Rx Instructions .ROUTE DAILY Qty: 9 6RF Rx Instructions: For insulin pump 300 units a day. (DME) pen needle, diabetic [BD Kaitlin 2nd Gen Pen Needle] 32 gauge x 5/32" needle See Rx Instructions miscellaneous .MEDSUPPLY Qty: 150 5RF Rx Instructions: change new pen 5x a day multivitamin Tablet 1 tab PO QAM Qty: 30 1RF atorvastatin 40 mg tablet 40 mg PO QPM Qty: 30 1RF ipratropium-albuterol 0.5 mg-3 mg(2.5 mg base)/3 mL Solution For Nebulization 3 ml INHALATION Q4H PRN (Reason: COUGHING, WHEEZING, SHORTNESS OF BREATH) Qty: 180 1RF azithromycin 250 mg Tablet 250 mg PO MoWeFr@0900 Qty: 12 1RF isosorbide mononitrate 30 mg Tablet Extended Release 24 Hr 30 mg PO QAM Qty: 30 1RF melatonin 3 mg Tablet 6 mg PO HS Qty: 60 1RF Rx Instructions: OTC aspirin [Robert Low Dose Aspirin] 81 mg Tablet,Delayed Release (Dr/Ec) 81 mg PO QAM Qty: 30 1RF spironolactone 25 mg Tablet 25 mg PO QAM Qty: 30 1RF bupropion HCl 100 mg Tablet Sustained-Release 12 Hr 200 mg PO PM Qty: 90 0RF Rx Instructions: and take 100mg po qAM levothyroxine 25 mcg Tablet 25 mcg PO DAILYBB Qty: 30 1RF Rx Instructions: TOTAL DOSE 225 MCG--TAKES WITH 200 MCG TAB. pantoprazole 40 mg Tablet,Delayed Release (Dr/Ec) 40 mg PO DAILYBB Qty: 30 1RF nitroglycerin 0.4 mg tablet, sublingual 0.4 mg SL DIRECTED PRN (Reason: Chest Pain) Qty: 25 0RF folic acid 1 mg Tablet 1 mg PO QAM Qty: 30 1RF levothyroxine 200 mcg Tablet 200 mcg PO DAILYBB Qty: 30 1RF Rx Instructions: TOTAL DOSE 225 MCG--TAKES WITH 25 MCG TAB. topiramate 100 mg Tablet 100 mg PO QAM Qty: 30 1RF sertraline 50 mg Tablet 50 mg PO QAM Qty: 30 1RF metoprolol tartrate 25 mg Tablet 12.5 mg PO BID Qty: 30 1RF diclofenac sodium [Voltaren Arthritis Pain] 1 % Gel 4 g EXT QID Qty: 30 1RF potassium chloride 20 mEq Tablet Extended Release 20 meq PO BID Qty: 60 1RF Combivent Respimat 20-100 mcg/actuation Mist 1 puff INHALATION QID Qty: 4 1RF Rx Instructions: space evenly during waking hours magnesium oxide 400 mg magnesium Tablet 400 mg PO QAM Qty: 30 1RF fentanyl 12 mcg/hr patch 72 hour 12 mcg transdermal Q72H Discontinued torsemide 10 mg tablet See Rx Instructions PO BID Rx Instructions: 25mg am,5mg pm orally twice a day; TAKES AT 0700 & 1500 25mg am and 5mg pm Discharge Orders: Discharge Order- CHF (Routine); Ordered 10/24/23 Ordered By: Neymar Molina Admission Data Admit Date/Time: 10/17/23 13:12 Attending Provider: Neymar Molina Admit Provider: Solomon Smiley Primary Care Provider: Ofe Mcgee Other Providers: Solomon Smiley; Surya Mendoza; [place],[facility] Care Coding Level of Care Code 49578 INP/OBS DISCH >30 MIN Diagnoses Acute on chronic hypoxic respiratory failure J96.21 Acute on chronic combined systolic (congestive) and diastolic (congestive) heart failure I50.43 Generalized weakness R53.1 Insulin-requiring or dependent type II diabetes mellitus E11.9; Z79.4 Fracture of distal end of right femur S72.401A Anxiety F41.9 Hypothyroidism (acquired) E03.9 Chronic pain G89.29 Demand ischemia I24.89
--- NOTE | 2023-10-24 12:31 | Cardiology Progress Note ---
Date of Service October 24, 2023 Assessment & Plan (1) Acute on chronic combined systolic (congestive) and diastolic (congestive) heart failure: (2) Right heart failure: (3) Obesity hypoventilation syndrome: (4) Chronic hypoxic respiratory failure: (5) Tracheostomy in place: Plan IMPRESSION: Medically complex 68-year-old female with improving evidence of acute decompensated right heart failure, patient chronic hypoxic respiratory failure with tracheostomy, [facility] physiology PLAN: Torsemide 20 mg BID following IV diuresis with furosemide. Continue spironolactone, Jardiance, evidence-based beta-nicolle therapy, aspirin, and m oderate intensity statin therapy. Admission and Anticipated Discharge Date Admission Date: October 17, 2023 Supervising Physician Co-Signing Physician Notes Patient seen and examined, chart reviewed. Patient had prompt response to oral metolazone in addition to IV furosemide last evening Would recommend changing oral regimen to torsemide 20 mg twice per day all the medications as per Subjective Patient seen and examined. Chart, medications, and telemetry reviewed. "Hey! I am going home today." Fluid improved. No chest pain. No palpitations. No dizziness I/O's: -18,257 mL's overall. Weights recorded as 186.2 kg on admission and 175.1 kg this morning. Telemetry: Sinus rhythm in the 70's and 80's, with occasional ventricular ectopy AM labs relatively stable Review of Systems Review of Systems: Complete review of systems is otherwise as stated above, negative, noncontributory Physical Exam Physical Exam: General: A&Ox3. NAD. + Obese. HENT: Normocephalic. Atraumatic. Eyes: PER. Conjunctiva pink, sclera clear. Neck: + Trach Heart: RRR. No murmur appreciated. Lungs: Diminished. Decreased. Diffuse wheeze. Abdomen: +BS. Somewhat firm. Nontender. Extremities: 1+ edema. No clubbing. No cyanosis. Limited neurological examination is without focal deficits. Pulses: Posterior tibial=1/4. Results & Data Vital Signs (Past 12 Hours) Vital Signs Temp Pulse Resp BP Pulse Ox O2 Del Method O2 Flow Rate 10/24/23 11:40 36.5 C 69 16 129/72 95 Trach Collar 8 10/24/23 10:37 Trach Collar 8 10/24/23 10:26 77 18 99 Trach Collar 10/24/23 08:18 36.6 C 79 16 130/67 91 Trach Collar 8 10/24/23 07:45 72 18 100 Trach Collar 10/24/23 04:10 71 98 H Trach Collar 8 FiO2 10/24/23 11:40 10/24/23 10:37 10/24/23 10:26 28 10/24/23 08:18 10/24/23 07:45 40 10/24/23 04:10 Laboratory Results Comprehensive Metabolic Panel 10/24/23 Range/Units 05:46 Sodium 139 (136-145) mmol/L Potassium 4.2 (3.5-5.1) mmol/L Chloride 101 (98-107) mmol/L Carbon Dioxide 32 (21-32) mmol/L BUN 33 H (6-23) mg/dl Creatinine 1.55 H (0.6-1.2) mg/dl Glucose 105 H (70-99(Fasting)) mg/dl Calcium 9.2 (8.6-10.3) mg/dl Intake and Output 10/23/23 10/24/23 10/24/23 22:59 06:59 14:59 Intake Total 340 / 820 0 / 820 Output Total 1600 / 4150 650 / 4150 Balance -1260 / -3330 -650 / -3330 Intake: Oral 340 / 820 0 / 820 Output: Urine Amount (Catheter) 1600 / 4150 650 / 4150 Payne/Indwelling 1600 / 4150 650 / 4150 Other: Other Intake Source Sips Weight 175.1 kg Weight Measurement Method Built in [facility] (2) Right heart failure Heart failure chronicity: acute on chronic Qualified Code(s): I50.813 - Acute on chronic right heart failure
== END 2023-10-24 17:02 | disposition home health service (06) | DRG 291 ==
LOC: ED 09:58 → EDINP 13:12 → SUATTDRO 13:12 → 2W 16:18

== ENCOUNTER 2024-01-15 19:07 | Inpatient (IN) ==
--- NOTE | 2024-01-15 19:53 | Emergency Department Note ---
History of Present Illness General Chief complaint: Leg Weakness, Bilateral Stated complaint: Leg Weakness, L Arm Weakness Time Seen by Provider: 01/15/24 19:33 Source: patient, family (Daughter on the phone. Caregiver at the bedside), RN notes reviewed and old records reviewed (11/25/23-pulmonary visit note for shortness of breath/trach/ongoing pulmonary issues) Mode of arrival: EMS Limitations: no limitations History of Present Illness Maximum Pain Intensity: 10 This patient is a 68-year-old female who has multiple medical problems and requires full care at home comes in after weakness of her legs. It has been bilaterally her right leg is normally weak because she broke it years ago has been weak since then but her daughter says she has been more weak over the last couple days her potassium was low at 2.5 she says she was given 10 mill equivalents of potassium twice daily she talk to the doctor there were supposed to increase over the weekend but there is no prescription yet. Her daughter says she has had decreased appetite no diarrhea she has had some constipation no vomiting. No chest pain but her breathing was a little heavier than usual last night. She is worried she could be retaining fluids as she has done this before she does wear 5 L oxygen at night her blood sugars been running high up to 380 at times. No recent fall or trauma no blood or melena stool her weakness has been diffuse and nonfocal. No fever. Home Medications Medication Instructions Recorded Confirmed Type aspirin 81 mg tablet,delayed 81 mg PO QAM #30 tabs 04/06/23 01/15/24 Rx release (Robert Low Dose Aspirin) atorvastatin 40 mg tablet 40 mg PO QPM #30 tabs 04/06/23 01/15/24 Rx bupropion HCl 100 mg tablet,12 hr 200 mg (2 x 100 mg) PO PM #90 ea 04/06/23 01/15/24 Rx sustained-release folic acid 1 mg tablet 1 mg PO QAM #30 tabs 04/06/23 01/15/24 Rx isosorbide mononitrate 30 mg 30 mg PO QAM #30 tabs 04/06/23 01/15/24 Rx tablet,extended release 24 hr levothyroxine 200 mcg tablet 200 mcg PO DAILYBB #30 tabs 04/06/23 01/15/24 Rx levothyroxine 25 mcg tablet 25 mcg PO DAILYBB #30 tabs 04/06/23 01/15/24 Rx magnesium oxide 400 mg PO QAM #30 tabs 04/06/23 01/15/24 Rx melatonin 3 mg tablet 6 mg (2 x 3 mg) PO HS #60 tabs 04/06/23 01/15/24 Rx metoprolol tartrate 25 mg tablet 12.5 mg (1/2 x 25 mg) PO BID #30 04/06/23 01/15/24 Rx tabs multivitamin 1 tab PO QAM #30 tabs 04/06/23 01/15/24 Rx nitroglycerin 0.4 mg sublingual 0.4 mg sublingual DIRECTED PRN 04/06/23 01/15/24 Rx tablet Chest Pain #25 tabs pantoprazole 40 mg tablet,delayed 40 mg PO DAILYBB #30 tabs 04/06/23 01/15/24 Rx release potassium chloride 20 mEq 20 meq PO BID #60 tabs 04/06/23 01/15/24 Rx tablet,extended release sertraline 50 mg tablet 50 mg PO QAM #30 tabs 04/06/23 01/15/24 Rx spironolactone 25 mg tablet 25 mg PO QAM #30 tabs 04/06/23 01/15/24 Rx topiramate 100 mg tablet 100 mg PO QAM #30 tabs 04/06/23 01/15/24 Rx blood sugar diagnostic (OneTouch #300 ea 07/21/23 11/22/23 Rx Ultra Test strips) blood-glucose meter (OneTouch #1 ea 07/21/23 11/22/23 Rx Ultra2 Meter) pen needle, diabetic 32 gauge x #150 ea 08/26/23 11/22/23 Rx 5/32" (BD Kaitlin 2nd Gen Pen Needle) pen needle, diabetic 32 gauge x #50 ea 08/26/23 11/22/23 Rx 5/32" (BD Kaitlin 2nd Gen Pen Needle) empagliflozin 10 mg tablet 10 mg PO DAILY #30 tabs 10/07/23 01/15/24 Rx (Jardiance) furosemide 80 mg tablet (Lasix) 80 mg PO DAILY #30 tabs 10/24/23 01/15/24 Rx oxycodone 5 mg tablet 5 mg PO Q6H PRN pain #20 tabs 10/24/23 01/15/24 Rx nebulizers #1 ea 11/16/23 11/22/23 Rx ipratropium 0.5 mg-albuterol 3 mg 3 ml inhalation Q4H PRN COUGHING, 11/25/23 01/15/24 Rx (2.5 mg base)/3 mL nebulization WHEEZING, SHORTNESS OF BREATH #180 soln mL ipratropium 20 mcg-albuterol 100 1 puff inhalation QID #4 grams 11/25/23 01/15/24 Rx mcg/actuation mist for inhalation (Combivent Respimat) benzonatate 200 mg capsule 200 mg PO TID PRN Cough 01/15/24 01/15/24 History diclofenac sodium 1 % topical gel 4 g EXT QID PRN Pain 01/15/24 01/15/24 History (Voltaren Arthritis Pain) fentanyl 12 mcg/hr transdermal 12 mcg transdermal .Q72H 01/15/24 01/15/24 History patch fentanyl 25 mcg/hr transdermal 25 mcg transdermal .Q72H 01/15/24 01/15/24 History patch insulin aspart U-100 100 unit/mL 0 unit continuous subcutaneous 01/15/24 01/15/24 History subcutaneous solution (Novolog infusion DAILY U-100 Insulin aspart) naloxone 4 mg/actuation nasal 4 mg intranasal DIRECTED PRN 01/15/24 01/15/24 History spray (Narcan) OVERDOSE Allergies Allergy/AdvReac Type Severity Reaction Status Date / Time Penicillins Allergy Intermediate Hives Verified 01/15/24 19:50 amitriptyline Allergy Unknown CAN'T Verified 01/15/24 19:50 REMEMBER doxycycline Allergy Unknown CAN'T Verified 01/15/24 19:50 REMEMBER guaifenesin Allergy Unknown CAN'T Verified 01/15/24 19:50 REMEMBER metformin Allergy Unknown CAN'T Verified 01/15/24 19:50 REMEMBER phenylephrine Allergy Unknown CAN'T Verified 01/15/24 19:50 REMEMBER pseudoephedrine Allergy Unknown CAN'T Verified 01/15/24 19:50 REMEMBER tetracycline Allergy Unknown CAN'T Verified 01/15/24 19:50 REMEMBER venlafaxine [From Effexor] Allergy Unknown CAN'T Verified 01/15/24 19:50 REMEMBER gabapentin AdvReac Intermediate BECOMES Verified 01/15/24 19:50 AGGRESSIVE Past Med/Surg History Medical History (Updated 01/17/24 @ 11:26 by Rajiv Cunningham MD) Chronic diastolic heart failure Chronic obstructive pulmonary disease Type 2 diabetes mellitus Chronic hypoxic respiratory failure Obesity hypoventilation syndrome Tracheostomy dependence Chronic pain Tracheostomy in place Right heart failure Generalized weakness Fracture of distal end of right femur Hypothyroidism (acquired) Ureterolithiasis CKD (chronic kidney disease) Vitamin D deficiency Adjustment disorder with depressed mood Chronic kidney disease, stage 3 Tinea unguium Cellulitis Atypical chest pain SOB (shortness of breath) CKD stage 4 due to type 2 diabetes mellitus GERD (gastroesophageal reflux disease) Ambulatory dysfunction Breathlessness Chest pain Fluid overload Insulin-requiring or dependent type II diabetes mellitus Anxiety Coronary artery disease Morbid obesity with BMI of 60.0-69.9, adult RASHAAD (obstructive sleep apnea) CHF (congestive heart failure) Right ventricular dysfunction Sepsis MRSA (methicillin resistant staph aureus) culture positive "sputum 11/2015" HTN (hypertension) Dyslipidemia Surgical History History of hysterectomy S/P IVC filter History of tonsillectomy and adenoidectomy History of cholecystectomy History of appendectomy Family History Mother Coronary heart disease COPD (chronic obstructive pulmonary disease) Father Suicide Hung himself. Pt found him. Unknown Lung cancer Social History Smoking Status: Never smoker Tobacco Type: Cigarettes Second Hand Exposure: No; Do You Dip or Chew Tobacco: No; Hx Alcohol Use: No Hx Substance Use: No Preferred Language: Estonian Communication Ability: Effective Visual Impairment: Limited Contact Printer Dry Film Required: No Beliefs That Will Affect Care: None marital status: Current Living Situation: Family Current Living Situation Comment: with daughter current occupational status: disabled How many Children do You have: 1 Feels Safe at Home: Yes Assistive Devices: Bedside Commode, Hospital Bed and Wheelchair Review of Systems A total of 10 systems reviewed and were otherwise negative Physical Exam Vital Signs Vital Signs - 24 hr 01/15/24 19:26 01/15/24 19:30 Temperature 36.8 C Temperature Source Oral Pulse Rate 81 82 Respiratory Rate 16 Respiratory Effort / Characteristics Non-Labored Spontaneous Respiratory Depth Normal Respiratory Pattern Regular Blood Pressure 124/69 Blood Pressure Mean 87 Pulse Oximetry 90 Oxygen Delivery Method Room Air Sepsis Recent Fever Within 48 Hours No Sepsis New/Unexplained Change in Mental Status No Sepsis Action Taken by Nursing No Action Required General: Well developed well nourished [id number] morbidly obese, older female who appears in no acute distress, breathing comfortably on room air. Normal speech when she plugs her trach HEENT: Normal cephalic atraumatic. Pupils are equal round and reactive to light. Extraocular movements are intact. Oropharynx is pink with moist mucous membranes. No swelling of the mouth lips or tongue. She has a trach in the neck. Neck: Supple with a midline trachea. No meningeal signs or stiffness, no JVD or bruits. No Stridor. There is a trach in her neck Chest: Clear to auscultation bilaterally. No wheezes or rhonchi. No increased work of breathing. Heart: Regular rate and rhythm without murmurs or gallops. Abdomen: Soft nontender, nondistended without rebound guarding or rigidity. Extremities: No cyanosis clubbing or edema. No calf tenderness or assymetry Spine/Back. Non tender to palpation. No CVA tenderness Skin: Good turgor without rashes. Neurologic exam: Cranial nerves two through 12 are intact. Motor and sensation are intact and symmetrical throughout. She has somewhat limitation movement of the right leg secondary to previous fracture adjustments is unchanged from baseline. Course Administered Medications Acetaminophen (Acetaminophen 500 Mg Tab) 500 mg PO TID [facility] Stop: 02/16/24 08:59 Last Admin: 01/17/24 08:48 Dose: 500 mg Documented By: GIO Albuterol (Albut/Ipratrop 3mg/0.5mg Neb 3 Ml Vial) 3 ml INH QIDR [facility]; Protocol Stop: 02/15/24 06:59 Last Admin: 01/17/24 07:49 Dose: 3 ml Documented By: Admin: 01/16/24 20:35 Dose: 3 ml Documented By: Admin: 01/16/24 14:23 Dose: 3 ml Documented By: Admin: 01/16/24 10:24 Dose: 3 ml Documented By: Admin: 01/16/24 08:09 Dose: 3 ml Documented By: CHRISTOPHER Aspirin (Aspirin 81 Mg Ectab) 81 mg PO QAM [facility] Stop: 02/15/24 08:59 Last Admin: 01/17/24 08:47 Dose: 81 mg Documented By: Admin: 01/16/24 08:34 Dose: 81 mg Documented By: AISHA Atorvastatin Calcium (Atorvastatin 40 Mg Tab) 40 mg PO QPM [facility] Stop: 02/15/24 20:59 Last Admin: 01/16/24 23:32 Dose: 40 mg Documented By: JANICE Benzonatate (Benzonatate 100 Mg Capsule) 100 mg PO TID PRN PRN Reason: cough Stop: 02/15/24 08:59 Last Admin: 01/17/24 05:50 Dose: 100 mg Documented By: Admin: 01/16/24 16:05 Dose: 100 mg Documented By: Admin: 01/16/24 06:28 Dose: 100 mg Documented By: RODGER Bupropion HCl (Bupropion Sr 100 Mg Tabcr) 200 mg PO PM [facility] Stop: 02/15/24 20:59 Last Admin: 01/16/24 23:34 Dose: 200 mg Documented By: JANICE Bupropion HCl (Bupropion Sr 100 Mg Tabcr) 100 mg PO [facility] Stop: 02/15/24 08:59 Last Admin: 01/17/24 08:46 Dose: 100 mg Documented By: Admin: 01/16/24 08:34 Dose: 100 mg Documented By: AISHA Enoxaparin Sodium (Enoxaparin Inj 40 Mg/0.4 Ml Syr) 40 mg SQ [facility] Stop: 02/15/24 08:59 Last Admin: 01/17/24 08:48 Dose: 40 mg Documented By: Admin: 01/16/24 08:33 Dose: 40 mg Documented By: AISHA Fentanyl (Fentanyl 25 Mcg/Hr Tdsy) 25 mcg TD Q72H [facility] Stop: 01/30/24 08:59 Last Admin: 01/16/24 09:03 Dose: 25 mcg Documented By: AISHA Folic Acid (Folic Acid 1 Mg Tab) [facility] [place] Stop: 02/15/24 08:59 Last Admin: 01/17/24 08:47 Dose: 1 mg Documented By: Admin: 01/16/24 08:34 Dose: 1 mg Documented By: AISHA Furosemide (Furosemide 80 Mg Tab) 80 mg PO DAILY [facility] Stop: 02/15/24 08:59 Last Admin: 01/17/24 08:47 Dose: 80 mg Documented By: Admin: 01/16/24 08:41 Dose: 80 mg Documented By: AISHA Ceftriaxone Sodium 2,000 mg/ (Dextrose) 70 mls @ 100 mls/hr IV Q24H [facility]; Protocol Stop: 01/21/24 08:59 Last Infusion: 01/17/24 10:13 Dose: Infused Documented By: Admin: 01/17/24 08:47 Dose: 100 mls/hr Documented By: Infusion: 01/16/24 11:00 Dose: Infused Documented By: Admin: 01/16/24 08:57 Dose: 100 mls/hr Documented By: AISHA Insulin Aspart (Insulin, Rapid-Acting Pump) 1 each N/A [facility]; Protocol Stop: 02/15/24 07:29 Last Admin: 01/17/24 08:45 Dose: 1 each Documented By: GIO Co-signed By: DERREK Admin: 01/16/24 23:35 Dose: 1 each Documented By: JANICE Co-signed By: IVÁN Admin: 01/16/24 16:06 Dose: Not Given Documented By: Admin: 01/16/24 13:40 Dose: Not Given Documented By: Admin: 01/16/24 07:24 Dose: 1 each Documented By: AISHA Co-signed By: LESLIE Isosorbide Mononitrate (Isosorbide [place] Extended Rel 30 Mg Tabcr) 30 mg PO [facility] Stop: 02/15/24 08:59 Last Admin: 01/17/24 08:46 Dose: 30 mg Documented By: Admin: 01/16/24 08:34 Dose: 30 mg Documented By: AISHA Levothyroxine Sodium (Levothyroxine Sodium 25 Mcg Tablet) [facility]: 02/15/24 06:29 Last Admin: 01/17/24 05:50 Dose: 25 mcg Documented By: Admin: 01/16/24 06:29 Dose: 25 mcg Documented By: RODGER Levothyroxine Sodium (Levothyroxine Sodium 200 Mcg Tablet) [facility] Stop: 02/15/24 06:29 Last Admin: 01/17/24 05:50 Dose: 200 mcg Documented By: Admin: 01/16/24 06:29 Dose: 200 mcg Documented By: RODGER Melatonin (Melatonin 3 Mg Tab) 6 mg PO [facility] Stop: 02/15/24 20:59 Last Admin: 01/16/24 23:31 Dose: 6 mg Documented By: JANICE Metoprolol Tartrate (Metoprolol Tartrate 25 Mg Tab) 12.5 mg PO BID [facility] Stop: 02/15/24 08:59 Last Admin: 01/17/24 08:46 Dose: 12.5 mg Documented By: Admin: 01/16/24 23:32 Dose: 12.5 mg Documented By: Admin: 01/16/24 08:33 Dose: 12.5 mg Documented By: AISHA Gao (Check Fentanyl Patch Placement) 1 each N/A QS [facility] Stop: 02/15/24 07:59 Last Admin: 01/17/24 08:45 Dose: 1 each Documented By: Admin: 01/16/24 23:44 Dose: 1 each Documented By: Admin: 01/16/24 16:06 Dose: 1 each Documented By: Admin: 01/16/24 09:05 Dose: 1 each Documented By: AISHA Gao (Fentanyl Patch Remove & Waste) 1 each N/A Q72H [facility] Stop: 02/15/24 08:58 Last Admin: 01/16/24 09:04 Dose: 1 each Documented By: AISHA Co-signed By: BELL Multivitamins (Multivitamin Tab) [facility] [place] Stop: 02/15/24 08:59 Last Admin: 01/17/24 08:47 Dose: 1 tab Documented By: Admin: 01/16/24 08:34 Dose: 1 tab Documented By: AISHA Pantoprazole Sodium (Pantoprazole 40 Mg Tab) 40 mg PO DAILYBB [facility] Stop: 02/15/24 06:29 Last Admin: 01/17/24 05:59 Dose: 40 mg Documented By: Admin: 01/16/24 06:29 Dose: 40 mg Documented By: RODGER Potassium Chloride (Potassium Chloride Crtab 20 Meq Tabcr) 40 meq PO TID [facility] Stop: 02/16/24 09:04 Last Admin: 01/17/24 10:12 Dose: 40 meq Documented By: GIO Sertraline HCl (Sertraline Hcl 50 Mg Tablet) 50 mg PO QAM [facility] Stop: 02/15/24 08:59 Last Admin: 01/17/24 08:47 Dose: 50 mg Documented By: Admin: 01/16/24 08:34 Dose: 50 mg Documented By: AISHA Sodium Chloride (Sodium Chlor 7% 4 Ml Neb) 4 ml NEB BIDR [facility] Stop: 02/15/24 18:59 Last Admin: 01/17/24 07:49 Dose: 4 ml Documented By: Admin: 01/16/24 20:35 Dose: 4 ml Documented By: GURWINDER Spironolactone (Spironolactone 25 Mg Tab) 25 mg PO [facility] Stop: 02/15/24 08:59 Last Admin: 01/17/24 08:47 Dose: 25 mg Documented By: Admin: 01/16/24 08:33 Dose: 25 mg Documented By: AISHA Topiramate (Topiramate 100 Mg Tab) 100 mg PO [facility] Stop: 02/15/24 08:59 Last Admin: 01/17/24 08:46 Dose: 100 mg Documented By: Admin: 01/16/24 08:33 Dose: 100 mg Documented By: AISHA Discontinued Medications Albuterol (Albuterol Hfa 8 Gm Inhaler (Combivent Respimat P&T Subs)) 1 puffs INH QIDR [facility]; Protocol Stop: 02/15/24 06:59 Last Admin: 01/16/24 12:07 Dose: Not Given Documented By: Admin: 01/16/24 08:10 Dose: Not Given Documented By: CHRISTOPHER Benzonatate (Benzonatate 100 Mg Capsule) 100 mg PO NOW ONE Stop: 01/15/24 20:56 Last Admin: 01/15/24 21:02 Dose: 100 mg Documented By: KARMA Potassium Chloride (K Brian / Wtr) 10 meq in 100 mls @ 100 mls/hr IV ONE ONE Stop: 01/15/24 23:09 Last Infusion: 01/16/24 04:09 Dose: Infused Documented By: Admin: 01/15/24 22:58 Dose: 100 mls/hr Documented By: KARMA Ipratropium [place] (Ipratropium Hfa Inhaler (Combivent Respimat P&T Subs)) 1 puffs INH QIDR [facility]; Protocol Stop: 02/15/24 06:59 Last Admin: 01/16/24 12:07 Dose: Not Given Documented By: Admin: 01/16/24 08:39 Dose: Not Given Documented By: RADHA Potassium Chloride (Potassium Chloride 20 Meq/15 Ml Udc) 40 meq PO NOW STA Stop: 01/15/24 22:11 Last Admin: 01/15/24 22:58 Dose: 40 meq Documented By: KARMA Potassium Chloride (Potassium Chloride Crtab 20 Meq Tabcr) 40 meq PO NOW ONE Stop: 01/16/24 03:06 Last Admin: 01/16/24 04:07 Dose: 40 meq Documented By: RODGER Potassium Chloride (Potassium Chloride 20 Meq/15 Ml Udc) 40 meq PO NOW STA Stop: 01/16/24 07:58 Last Admin: 01/16/24 08:40 Dose: 40 meq Documented By: AISHA Potassium Chloride (Potassium Chloride 20 Meq/15 Ml Udc) 20 meq PO NOW STA Stop: 01/16/24 12:40 Last Admin: 01/16/24 13:30 Dose: 20 meq Documented By: MICHAEL Medical Decision Making Differential Diagnosis Electrolyte or metabolic abnormality, CHF, infection, dehydration, cardiac disease, neurologic disease, medication side effect Medical Records Attestation: I reviewed the patient's medical records. Home Medications Current Medication List: was personally reviewed by me Laboratory Data Attestation: I reviewed the patient's lab results. 01/17/24 05:45 01/17/24 05:45 Lab Results 01/15/24 Range/Units 20:08 WBC 12.10 H (4.8-10.8) K/ul RBC 4.83 (4.20-5.40) M/uL Hgb 13.1 (12.0-16.0) g/dl Hct 41.8 (37.0-47.0) % MCV 86.5 (80.0-100.0) fL MCH 27.1 (25.0-34.0) pg MCHC 31.3 L (32.0-36.0) g/dL RDW Std Deviation 51.5 H (36.4-46.3) fL RDW Coeff of Amee 16.5 H (11.5-14.5) % Plt Count 308 (130-400) K/uL MPV 9.1 L (9.4-12.4) fL Immature Gran % (Auto) 2.2 % Neut % (Auto) 77.8 % Lymph % (Auto) 9.4 % [place] % (Auto) 8.0 % Eos % (Auto) 2.0 % Baso % (Auto) 0.6 % Neut # (Auto) 9.41 H (1.40-6.50) K/uL Lymph # (Auto) 1.14 L (1.20-3.40) K/uL [place] # (Auto) 0.97 H (0.11-0.59) K/uL Eos # (Auto) 0.24 (0.00-0.50) K/uL Baso # (Auto) 0.07 (0.00-0.20) K/uL Immature Gran # (Auto) 0.27 H (0.01-0.20) K/uL PT 10.7 (9.0-12.0) Seconds INR 1.0 (0.9-1.1) Sodium 131 L (136-145) mmol/L Potassium 2.6 L (3.5-5.1) mmol/L Chloride 83 L (98-107) mmol/L Carbon Dioxide 37 H (21-32) mmol/L Anion Gap 11 (3-11) BUN 43 H (6-23) mg/dl Creatinine 1.73 H (0.6-1.2) mg/dl Est Cr Clr Drug Dosing 48.9 ml/min Est GFR ( Amer) 34.8 ml/min Est GFR (Non-Af Amer) 30.0 ml/min BUN/Creatinine Ratio 24.9 H (10-20) Glucose 92 (70-99(Fasting)) mg/dl Calcium 9.6 (8.6-10.3) mg/dl Magnesium 2.6 H (1.7-2.4) mg/dl Total Bilirubin 0.5 (0.2-1.0) mg/dl AST 21 (13-39) U/L ALT 16 (7-52) U/L Alkaline Phosphatase 90 (34-104) U/L Troponin I High Sens 17.4 H (0-14) pg/ml B-Natriuretic Peptide 58 (0-100) pg/ml Total Protein 8.6 H (6.0-8.3) gm/dl Albumin 3.7 (3.4-5.0) gm/dl Globulin 4.9 H (2.5-4.0) gm/dl Albumin/Globulin Ratio 0.8 L (0.9-2) TSH 1.385 (0.300-4.500) uIu/ml SARS-CoV-2 (PCR) NEGATIVE (Negative) Imaging Data Attestation: I personally reviewed and interpreted this imaging study as follows: My Impression: Chest x-raycardiomegaly but no overt CHF, pneumonia, pneumothorax as per my independent interpretation Radiologist's Impression: Chest X-Ray 01/15/24 19:47 XR chest 1V portable CLINICAL HISTORY: weakness COMPARISON STUDY: Chest radiograph January 08, 2024. FINDINGS: Tracheostomy tube is in place. There is no pneumothorax or pleural effusion. Moderate cardiomegaly is unchanged. There is no evidence for pulmonary edema. There is no consolidation to suggest pneumonia. IMPRESSION: No acute cardiopulmonary findings. Cardiomegaly. ACT 112: Negative or not required by law. Electronically signed by: Toni Ohara M.D. 01/16/2024 7:17 AM ECG Data Attestation: I personally reviewed and interpreted this ECG as follows: Indication: + weakness Rate (beats per minute): 81 Rhythm: + normal sinus and + other (Poor baseline) ECG Intervals/blocks: + Right Bundle branch block and + Prolonged QT ECG Comfort: + Left axis deviation ECG ST segments: + Nonspecific ST abnormalities ECG Findings: no PACs or no PVCs Comparison ECG Date: from (01/08/24) Change: the following changes noted (Right bundle branch block has replaced incomplete right bundle branch block) MDM Narrative This patient comes in as described above she has a very complex medical history .she is on a trach .she has weakness it is nonfocal. She has a low potassium that they were supposed to increase over the weekend but it sounds like the instructions were unclear. IV access was established EKG was obtained multiple blood testing was obtained her O2 sat was mildly low and she was placed on supplemental oxygen. EKG does not show ischemic changes, she does have a right bundle branch block. She has a very slight elevation of her troponin at 17.4. However looking back through her chart she always runs elevated and in fact is often more elevated than this. She has nothing to make me think she has an acute ischemia cardiac event. Her potassium did come back significant low at 2.6 she does have baseline renal insufficiency with a creatinine of 1.7. She was given p.o. potassium 40 mill equivalents as well as a started IV potassium the ED with a 10 mill equivalent K rider IV. She may have a degree of fluid overload as well although her chest x-ray does not look like it is an overt failure. She is mildly hypoxemic but responded well to some supplemental oxygen which she does wear at night as well. This could be contributing to her weakness as well although I think hypokalemia is the main reason she is weak she likely is multifactorial. She does have a mildly elevated white count but it do not find any other definite source of infection at this point, with urine pending. I do think she needs to be admitted/observed to replete her potassium and have further treatment and evaluation workup for her weakness. I have discussed the case in consultation at length with the resident and Dr. Ocasio and they will admit her for these measures Continuous cardiac monitoring: Orders placed in EMR for continuous cardiac monitoring. Upon my evaluation she was noted to be in normal sinus rhythm with a rate of 86. Impression & Plan Acute hypokalemia, Weakness, Presence of tracheostomy, Hypoxemia, Right bundle branch block Discharge Plan Visit Data Chief Complaint: Leg Weakness, Bilateral Stated Complaint: Leg Weakness, L Arm Weakness ED Provider: Rajiv Cunningham Discharge Problem: Acute hypokalemia, Weakness, Presence of tracheostomy, Hypoxemia, Right bundle branch block Patient Disposition: Admitted As Inpatient Discharge Instructions Interventions: ED Discharge Assessment Last Done: 01/16/24 02:21
[2024-01-15 20:48] LABS: Basophils # (auto) 0.07 K/uL (0.00-0.20); Basophils % (auto) 0.6 %; Eosinophils # (auto) 0.24 K/uL (0.00-0.50); Hematocrit (blood only) 41.8 % (37.0-47.0); Hemoglobin 13.1 g/dl (12.0-16.0); Immature Granulocytes # (auto) 0.27 K/uL (0.01-0.20); Immature Granulocytes % (auto) 2.2 %; Lymphocytes # (auto) 1.14 K/uL (1.20-3.40); Lymphocytes % (auto) 9.4 %; Mean Corpuscular Hemoglobin 27.1 pg (25.0-34.0); Mean Corpuscular Hgb Conc 31.3 g/dL (32.0-36.0); Mean Corpuscular Volume 86.5 fL (80.0-100.0); Mean Platelet Volume 9.1 fL (9.4-12.4); Monocytes # (auto) 0.97 K/uL (0.11-0.59); Neutrophils # (auto) 9.41 K/uL (1.40-6.50); Neutrophils % (auto) 77.8 %; Platelet Count 308 K/uL (130-400); RDW Coefficient of Variation 16.5 % (11.5-14.5); RDW Standard Deviation 51.5 fL (36.4-46.3); Red Blood Count 4.83 M/uL (4.20-5.40)
[2024-01-15] MEDS: BENZONATATE 100 MG CAPSULE PO ONE (21:02)
[2024-01-15 21:05] LABS: Albumin Globulin Ratio 0.8 (0.9-2); Albumin Level 3.7 gm/dl (3.4-5.0); BUN Creatinine Ratio 24.9 (10-20); Bilirubin,Total 0.5 mg/dl (0.2-1.0); Calcium 9.6 mg/dl (8.6-10.3); Creatinine Clr Calc Pharmacy 48.9 ml/min; Est GFR (African American) 34.8 ml/min; Globulin 4.9 gm/dl (2.5-4.0); Magnesium 2.6 mg/dl (1.7-2.4); Potassium 2.6 mmol/L (3.5-5.1); Total Protein 8.6 gm/dl (6.0-8.3)
[2024-01-15 21:12] LABS: Troponin I High Sensitivity 17.4 pg/ml (0-14)
[2024-01-15 21:19] LABS: Prothrombin Time 10.7 Seconds (9.0-12.0)
[2024-01-15 21:22] LABS: Thyroid Stimulating Hormone 1.385 uIu/ml (0.300-4.500)
[2024-01-15] MEDS: POTASSIUM CHLORIDE / WTR 10 MEQ/100 ML PLCT IV ONE (22:58)
[2024-01-15] MEDS: POTASSIUM CHLORIDE 20 MEQ/15 ML UDC PO STA (22:58)
[2024-01-15] MEDS ORDERED: PHARMACY GLYCEMIC MGMT CONSULT PRN (23:39)
--- NOTE | 2024-01-16 00:03 | History & Physical Report ---
Date of Service January 15, 2024 Assessment & Plan (1) Hypokalemia: Plan: Hypokalemia - K=2.6, plan to replete cautiously in the setting of CKD - s/p 50meq in ED, plan to repeat BMP and replete as necessary Acute on Chronic Repository Failure - Increased oxygen requirement, normally uses 5L at home, 7-10L in the ED - Likely viral URI, although viral testing has been negative - F/u final read of CXR; does not appear to have any consolidations that would be indicative on a PNA - Appears euvolemic on exam with normal BMP; no signs of hypervolemia - Duo- Neb QID HFrEF - appears euvolemic on exam with normal BNP - plan to continue home diuretics Generalized weakness: -Likely multifactorial in the setting of electrolyte abnormalities and viral URI - no focal neurologic deficits on exam -PT/OT consulted CKD - Creatine= 1.7, baseline 1.5 - suspect she may be slightly hypovolemic in the setting of viral illness - continue to trend Elevated Troponin - likely demand ischemia - no active chest pain - trend to peak Tracheostomy in place: -Continue routine tracheostomy care DM2 -Patient normally uses insulin pump but would like basal/bolus coverage while admitted -Pharmacy glycemic consult placed; initially basal/bolus based on requirements from last admission Fracture of distal end of right femur/Chronic Pain -Has been a chronic issue and deemed inoperable by previous tertiary care centers -Continue home fentanyl patch -PRN narcan for oversedation/respiratory depression Anxiety: -Continue sertraline and bupropion Hypothyroidism -Continue levothyroxine (2) Weakness: (3) Tracheostomy present: (4) Morbid obesity: (5) Obesity hypoventilation syndrome: (6) Demand ischemia: (7) Acute on chronic hypoxic respiratory failure: (8) GERD (gastroesophageal reflux disease): (9) CHF (congestive heart failure): History of Present Illness Primary Care Provider: Ofe Mcgee MD 68 year old female with a past medical history of morbid obesity with right femur fracture (non-operable) with chronic pain, nonambulatory status, tracheostomy dependent, COPD/chronic respiratory failure, HFrEF (LVEF of 45- 50%), anxiety, DM2, GERD, CKD4, hypothyroidism, HTN, CAD that presenting to the ED with complaints of weakness. 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 Of note she was seen in the ED on 01/08 for URI symptoms, respiratory biofire was negative. She notes her potassium has been low and she has been supplementing it for her PCPs guidance. She continues to note a cough and congestions, denies fever/chills. Denies chest pain, urinary symptoms. Spoke with daughter and she confirms history and confirmed med list. ED Course significant for: K= 2.6 repleted with 50meq KCL. Na= 131. Creatine= 1.73. BNP= 58, Trop= 17.4. CXR completed; formal read not complete but looks unchanged from CXR 01/08. Allergies Allergy/AdvReac Type Severity Reaction Status Date / Time Penicillins Allergy Intermediate Hives Verified 01/15/24 19:50 amitriptyline Allergy Unknown CAN'T Verified 01/15/24 19:50 REMEMBER doxycycline Allergy Unknown CAN'T Verified 01/15/24 19:50 REMEMBER guaifenesin Allergy Unknown CAN'T Verified 01/15/24 19:50 REMEMBER metformin Allergy Unknown CAN'T Verified 01/15/24 19:50 REMEMBER phenylephrine Allergy Unknown CAN'T Verified 01/15/24 19:50 REMEMBER pseudoephedrine Allergy Unknown CAN'T Verified 01/15/24 19:50 REMEMBER tetracycline Allergy Unknown CAN'T Verified 01/15/24 19:50 REMEMBER venlafaxine [From Effexor] Allergy Unknown CAN'T Verified 01/15/24 19:50 REMEMBER gabapentin AdvReac Intermediate BECOMES Verified 01/15/24 19:50 AGGRESSIVE Home Medications Medication Instructions Recorded Confirmed Type aspirin 81 mg tablet,delayed 81 mg PO QAM #30 tabs 04/06/23 01/15/24 Rx release (Robert Low Dose Aspirin) atorvastatin 40 mg tablet 40 mg PO QPM #30 tabs 04/06/23 01/15/24 Rx bupropion HCl 100 mg tablet,12 hr 200 mg (2 x 100 mg) PO PM #90 ea 04/06/23 01/15/24 Rx sustained-release folic acid 1 mg tablet 1 mg PO QAM #30 tabs 04/06/23 01/15/24 Rx isosorbide mononitrate 30 mg 30 mg PO QAM #30 tabs 04/06/23 01/15/24 Rx tablet,extended release 24 hr levothyroxine 200 mcg tablet 200 mcg PO DAILYBB #30 tabs 04/06/23 01/15/24 Rx levothyroxine 25 mcg tablet 25 mcg PO DAILYBB #30 tabs 04/06/23 01/15/24 Rx magnesium oxide 400 mg PO QAM #30 tabs 04/06/23 01/15/24 Rx melatonin 3 mg tablet 6 mg (2 x 3 mg) PO HS #60 tabs 04/06/23 01/15/24 Rx metoprolol tartrate 25 mg tablet 12.5 mg (1/2 x 25 mg) PO BID #30 04/06/23 01/15/24 Rx tabs multivitamin 1 tab PO QAM #30 tabs 04/06/23 01/15/24 Rx nitroglycerin 0.4 mg sublingual 0.4 mg sublingual DIRECTED PRN 04/06/23 01/15/24 Rx tablet Chest Pain #25 tabs pantoprazole 40 mg tablet,delayed 40 mg PO DAILYBB #30 tabs 04/06/23 01/15/24 Rx release potassium chloride 20 mEq 20 meq PO BID #60 tabs 04/06/23 01/15/24 Rx tablet,extended release sertraline 50 mg tablet 50 mg PO QAM #30 tabs 04/06/23 01/15/24 Rx spironolactone 25 mg tablet 25 mg PO QAM #30 tabs 04/06/23 01/15/24 Rx topiramate 100 mg tablet 100 mg PO QAM #30 tabs 04/06/23 01/15/24 Rx blood sugar diagnostic (OneTouch #300 ea 07/21/23 11/22/23 Rx Ultra Test strips) blood-glucose meter (OneTouch #1 ea 07/21/23 11/22/23 Rx Ultra2 Meter) pen needle, diabetic 32 gauge x #150 ea 08/26/23 11/22/23 Rx 5/32" (BD Kaitlin 2nd Gen Pen Needle) pen needle, diabetic 32 gauge x #50 ea 08/26/23 11/22/23 Rx 5/32" (BD Kaitlin 2nd Gen Pen Needle) empagliflozin 10 mg tablet 10 mg PO DAILY #30 tabs 10/07/23 01/15/24 Rx (Jardiance) furosemide 80 mg tablet (Lasix) 80 mg PO DAILY #30 tabs 10/24/23 01/15/24 Rx oxycodone 5 mg tablet 5 mg PO Q6H PRN pain #20 tabs 10/24/23 01/15/24 Rx nebulizers #1 ea 11/16/23 11/22/23 Rx ipratropium 0.5 mg-albuterol 3 mg 3 ml inhalation Q4H PRN COUGHING, 11/25/23 01/15/24 Rx (2.5 mg base)/3 mL nebulization WHEEZING, SHORTNESS OF BREATH #180 soln mL ipratropium 20 mcg-albuterol 100 1 puff inhalation QID #4 grams 11/25/23 Rx mcg/actuation mist for inhalation (Combivent Respimat) benzonatate 200 mg capsule 200 mg PO TID PRN Cough 01/15/24 01/15/24 History diclofenac sodium 1 % topical gel 4 g EXT QID PRN Pain 01/15/24 01/15/24 History (Voltaren Arthritis Pain) fentanyl 12 mcg/hr transdermal 12 mcg transdermal .Q72H 01/15/24 01/15/24 History patch fentanyl 25 mcg/hr transdermal 25 mcg transdermal .Q72H 01/15/24 01/15/24 History patch insulin aspart U-100 100 unit/mL 0 unit continuous subcutaneous 01/15/24 01/15/24 History subcutaneous solution (Novolog infusion DAILY U-100 Insulin aspart) naloxone 4 mg/actuation nasal 4 mg intranasal DIRECTED PRN 01/15/24 01/15/24 History spray (Narcan) OVERDOSE Past Med/Surg History Medical History (Updated 01/16/24 @ 08:14 by Kailyn Abarca MD) Chronic diastolic heart failure Chronic obstructive pulmonary disease Type 2 diabetes mellitus Chronic hypoxic respiratory failure Obesity hypoventilation syndrome Tracheostomy dependence Chronic pain Tracheostomy in place Right heart failure Generalized weakness Fracture of distal end of right femur Hypothyroidism (acquired) Ureterolithiasis CKD (chronic kidney disease) Vitamin D deficiency Adjustment disorder with depressed mood Chronic kidney disease, stage 3 Tinea unguium Cellulitis Atypical chest pain SOB (shortness of breath) CKD stage 4 due to type 2 diabetes mellitus GERD (gastroesophageal reflux disease) Ambulatory dysfunction Breathlessness Chest pain Fluid overload Insulin-requiring or dependent type II diabetes mellitus Anxiety Coronary artery disease Morbid obesity with BMI of 60.0-69.9, adult RASHAAD (obstructive sleep apnea) CHF (congestive heart failure) Right ventricular dysfunction Sepsis MRSA (methicillin resistant staph aureus) culture positive "sputum 11/2015" HTN (hypertension) Dyslipidemia Surgical History History of hysterectomy S/P IVC filter History of tonsillectomy and adenoidectomy History of cholecystectomy History of appendectomy Family History Mother Coronary heart disease COPD (chronic obstructive pulmonary disease) Father Suicide Hung himself. Pt found him. Unknown Lung cancer Social History Smoking Status: Never smoker Tobacco Type: Cigarettes Second Hand Exposure: No; Do You Dip or Chew Tobacco: No; Hx Alcohol Use: No Hx Substance Use: No Preferred Language: Kittitian Communication Ability: Effective Visual Impairment: Limited Outboard Motor Mechanic Required: No Beliefs That Will Affect Care: None marital status: Current Living Situation: Family Current Living Situation Comment: with daughter current occupational status: disabled How many Children do You have: 1 Feels Safe at Home: Yes Assistive Devices: Bedside Commode, Hospital Bed and Wheelchair Review of Systems Review of Systems: As per above Physical Exam Physical Exam: Constitutional: well-appearing, no acute distress HEENT: NCAT, no conjunctival injection CV: regular rhythm, no murmur appreciated, extremities well-perfused, no 1+ pitting edema B/L LE Resp: CTABL, no rales/rhonchi appreciated, + end expiratory wheeze, no increased work of breathing GI: soft, nondistended, nontender MSK: no gross deformities appreciated Skin: warm, dry, chronic venous dermatitis in LE B/L Neuro: alert, oriented, no focal neurologic deficit appreciated. CN II-XII intact. Results & Data Results & Data Vital Signs (Past 12 Hours) Vital Signs Temp Pulse Resp BP Pulse Ox O2 Del Method 01/15/24 20:30 80 18 127/72 96 01/15/24 20:08 98 Trach Collar 01/15/24 19:30 82 20 107/67 89 L 01/15/24 19:30 82 01/15/24 19:26 36.8 C 81 16 124/69 90 Room Air Supervising Physician Co-Signing Physician Notes Attending addendum: I have physically seen this patient, have supervised the medical residents activities, and agree with the H&P unless as otherwise noted. Assessment and Plan: Hypokalemia- Potassium 2.6 on admission Has received Klor-Con 40 mEq p.o., and potassium chloride 10 mEq IV from the ED Follow renal function panel and magnesium level in the a.m. Acute on chronic respiratory failure/obesity hypoventilation syndrome- Baseline 5 L nasal cannula at home, is now on 7-10 at liters in the ED No signs of active infection He required CPAP/BiPAP overnight HFrEF- Appears euvolemic on examination Continue home regimen of diuretics Elevated troponin- Troponin 17.4 on admission Likely supply demand mismatch type II process, recheck in a.m. Generalized weakness- Consult PT/OT Consideration for rehab stay post discharge Resident Activity Tracking Resident Involvement: Resident Care Provided Care Provided: Adult Hospital Medicine (9) CHF (congestive heart failure) Heart failure chronicity: acute on chronic Heart failure type: right-sided Qualified Code(s): I50.813 - Acute on chronic right heart failure
[2024-01-16 01:21] LABS: BUN Creatinine Ratio 24.1 (10-20); Calcium 8.9 mg/dl (8.6-10.3); Creatinine Clr Calc Pharmacy 48.7 ml/min; Est GFR (African American) 34.6 ml/min; Est GFR (Non-African American) 29.8 ml/min; Potassium 2.9 mmol/L (3.5-5.1)
[2024-01-16] MEDS ORDERED: GLUCOSE 10 TAB/TUBE PO PRN (02:21)
[2024-01-16] MEDS ORDERED: GLUCAGON FOR INJ 1 MG VIAL SQ PRN (02:21)
[2024-01-16] MEDS ORDERED: GLUCOSE 40% GEL 15 GM TUBE PO PRN (02:21)
[2024-01-16] MEDS ORDERED: DEXTROSE 50% 50 ML SYRINGE IV PRN (02:21)
[2024-01-16] MEDS ORDERED: CARBOHYDRATES FOR HYPOGLYCEMIA PO PRN (02:21)
[2024-01-16] MEDS: POTASSIUM CHLORIDE CRTAB 20 MEQ TABCR PO ONE (04:07)
[2024-01-16 04:50] LABS: Basophils # (auto) 0.07 K/uL (0.00-0.20); Basophils % (auto) 0.6 %; Eosinophils # (auto) 0.33 K/uL (0.00-0.50); Eosinophils % (auto) 2.9 %; Hematocrit (blood only) 38.7 % (37.0-47.0); Hemoglobin 11.9 g/dl (12.0-16.0); Immature Granulocytes # (auto) 0.23 K/uL (0.01-0.20); Lymphocytes # (auto) 1.55 K/uL (1.20-3.40); Lymphocytes % (auto) 13.4 %; Mean Corpuscular Hemoglobin 26.6 pg (25.0-34.0); Mean Corpuscular Hgb Conc 30.7 g/dL (32.0-36.0); Mean Corpuscular Volume 86.6 fL (80.0-100.0); Mean Platelet Volume 9.1 fL (9.4-12.4); Monocytes # (auto) 1.06 K/uL (0.11-0.59); Monocytes % (auto) 9.2 %; Neutrophils # (auto) 8.31 K/uL (1.40-6.50); Neutrophils % (auto) 71.9 %; Platelet Count 287 K/uL (130-400); RDW Coefficient of Variation 16.4 % (11.5-14.5); RDW Standard Deviation 50.6 fL (36.4-46.3); Red Blood Count 4.47 M/uL (4.20-5.40); White Blood Count 11.55 K/ul (4.8-10.8)
[2024-01-16 04:53] LABS: Albumin Globulin Ratio 0.8 (0.9-2); Albumin Level 3.3 gm/dl (3.4-5.0); BUN Creatinine Ratio 24.1 (10-20); Bilirubin,Total 0.5 mg/dl (0.2-1.0); Calcium 8.8 mg/dl (8.6-10.3); Creatinine Clr Calc Pharmacy 48.7 ml/min; Est GFR (African American) 34.6 ml/min; Est GFR (Non-African American) 29.8 ml/min; Globulin 3.9 gm/dl (2.5-4.0); Magnesium 2.5 mg/dl (1.7-2.4); Potassium 2.7 mmol/L (3.5-5.1); Total Protein 7.2 gm/dl (6.0-8.3)
[2024-01-16 04:59] LABS: Troponin I High Sensitivity 15.5 pg/ml (0-14)
[2024-01-16] MEDS: BENZONATATE 100 MG CAPSULE PO PRN (06:28)
[2024-01-16] MEDS: LEVOTHYROXINE SODIUM 25 MCG TABLET PO SCH (06:29)
[2024-01-16] MEDS: PANTOprazole 40 MG TAB PO SCH (06:29)
[2024-01-16] MEDS: LEVOTHYROXINE SODIUM 200 MCG TABLET PO SCH (06:29)
[2024-01-16] MEDS ORDERED: INSULIN ASPART 100 UNITS/ML VIAL SC PRN (06:30)
[2024-01-16 07:17] LABS: Appearance Urine Cloudy (Clear); Bilirubin Urine Negative (Negative); Blood Urine Negative (Negative); Cast Urine Automated 0 /lpf (0-5); Color Urine Yellow; Epithelial Cell Urine Auto 20-30 /lpf (0-5); Glucose Urine UA 1+ (Negative); Ketones Urine Negative (Negative); Leukocyte Esterase Urine 2+ (Negative); Nitrite Urine Positive (Negative); Protein Urine Negative (Negative); RBC Urine Automated 0-4 /hpf (0-4); Specific Gravity Urine 1.013 (1.000-1.030); Urobilinogen Urine Negative (Negative); WBC Urine Automated >30 /hpf (0-5); pH Urine 5.5 (4.5-7.5)
--- NOTE | 2024-01-16 07:19 | XRay Report ---
XR chest 1V portable CLINICAL HISTORY: weakness COMPARISON STUDY: Chest radiograph January 08, 2024. FINDINGS: Tracheostomy tube is in place. There is no pneumothorax or pleural effusion. Moderate cardi omegaly is unchanged. There is no evidence for pulmonary edema. There is no consolidation to suggest pneumonia. IMPRESSION: No acute cardiopulmonary findings. Cardiomegaly. ACT 112: Negative or not required by law. Electronically signed by: Toni Ohara M.D. 01/16/2024 7:17 AM
[2024-01-16] MEDS: INSULIN, Rapid-Acting PUMP SCH (07:24)
[2024-01-16] MEDS ORDERED: INSULIN ASPART PER UNIT CHARGE SC SCH (07:30)
[2024-01-16 07:43] LABS: Bacteria Urine Automated 2+ (Negative)
[2024-01-16] MEDS: ALBUT/IPRATROP 3MG/0.5MG NEB 3 ML VIAL INH SCH (08:09)
[2024-01-16] MEDS: Albuterol HFA 8 GM Inhaler (Combivent Respimat P&T Subs) INH SCH (08:10)
--- NOTE | 2024-01-16 08:28 | Hospitalist Progress Note ---
Date of Service January 16, 2024 Assessment & Plan (1) Hypokalemia: Plan: Whit is a 68yo Female with PMH morbid obesity with chronic right femur fracture (non-operable) with chronic pain, nonambulatory status, tracheostomy dependent, OHS/COPD/chronic respiratory failure, HFpEF (LVEF of 55-60%), cor pulmonale, anxiety, DM2, GERD, CKD4, hypothyroidism, HTN, CAD. At baseline she lives at home with caregivers, can transfer, home O2 baseline 5L with trach and nocturnal AVAPS. Admitted with weakness, acute on chronic hypoxic respiratory failure requiring 7-10L O2 in ED and hypokalemic with K 2.6 severe hypokalemia - seems related to recently increased diuretics -K 2.7 this am after total 90 meq given since presentation -additional 40 meq ordered now po, 20 meq IV and recheck at 11 am improved to 3.2, gave additional po dose. Caution with CKD -on furosemide 80 mg and spironolactone 25 mg. Previously torsemide at lower dose, changed to furosemide 80 at last discharge -labs and exam appear euvolemic to dry - mild hyponatremia, Cr mildly increased from baseline, BNP 58 -mag was high at 2.7 -needs increased potassium dose for discharge Weakness - hypokalemia playing a role. Also more hypoxic. UA is abnormal but appears contaminated (epi cells). -start ceftriaxone for UTI coverage pending cultures. Increase dose to 2g if appearing more consistent with pneumonia (2) Acute on chronic hypoxic respiratory failure: Plan: Acute on chronic hypoxic respiratory failure present on admission Baseline is 5L by trach. Daughter and patient report she is NOT on home AVAPS or Bipap -CXR clear, WBC 12, COVID negative, ordered resp biofire - negative, add on procalcitonin = 0.17 -seems like postviral cough or acute bronchitis with difficulty clearing secretions -continue duonebs and added saline nebs -planned course of doxycycline but she has intolerance/allergy - currently on ceftriaxone as above which will work, could change to azithro po if no UTI -not wheezing so did not add steroids today, but does have underlying COPD (3) Chronic diastolic heart failure: Plan: Chronic biventricular heart failure, chronic diastolic heart failure most recent echo 09/2023 EF 55-60% -followed by [facility] cardiology -continue lasix, spironolactone, metoprolol, imdur -troponin flat and minimally abnormal 18-17-15, EKG with (old) RBBB, no evidence of ACS -euvolemic to dry (4) Type 2 diabetes mellitus: Plan: Has insulin pump Pharmacy glycemic consult BG at goal 01/16 (5) Obesity hypoventilation syndrome: Plan: trach dependence does not use AVAPS/Bipap/CPAP at home (6) Tracheostomy dependence: Plan: Daughter says they are having difficulty with supplies (resp company is [employer]) - they have home suction but no suction catheters were sent, also they are in need of trach kits (7) Morbid obesity with BMI of 60.0-69.9, adult: (8) Cor pulmonale: (9) Chronic obstructive pulmonary disease: Plan: see above Plan Hypothyroidism - continue levothyroxine, TSH 1.38 CKD stage 3 - baseline Cr around 1.5 -mildly elevated at 1.7 -AM BMP Chronic pain, opioid dependence, continue fentanyl patch Nonambulatory, chronic non-operable R hip fracture, at baseline can transfer -PT/OT, care coordination consults DVT ppx - enoxaparin 40 mg, hx IVC filter Admission and Anticipated Discharge Date Admission Date: January 15, 2024 Subjective Seen with daughter at bedside who provided further history. Has increased weakness, usually able to transfer. Recently her doctor gave Rx for increased potassium but she was unable to garbage pick up worker from pharmacy on tuesday they said it was "too soon to fill" it. Has had increased cough with thick sputum that she cannot clear last 2 weeks. Caregiver had influenza about 3 weeks ago. Physical Exam 2 Physical Exam: PHYSICAL EXAMINATION Last 24h vital signs reviewed, see documentation in flowsheet General: comfortable appearing, no distress, except when having a hard coughing fit. Observed eating well with no evidence of aspiration/dysphagia HEENT: Normocephalic, atraumatic, pupils round and equal, sclerae anicteric, no conjunctival injection, moist mucus membranes. trach in ant neck Lungs: Normal respiratory effort. Coarse bilaterally anteriorly. One hard coughing fit and could not clear mucus. Heart: Regular rate and rhythm, no murmurs. No JVD Abdomen: Soft, nontender, nondistended. Bowel sounds present. Extremities: Warm, dry, well-perfused. No significant extremity edema. Neuro: Alert and oriented x 4, face symmetric, moves 4 extremities. No asterixis Psych: Normal affect and behavior Results & Data Results & Data Vital Signs (Past 12 Hours) Vital Signs Pulse Pulse Resp BP BP Pulse Ox O2 Del Method 01/16/24 07:52 85 01/16/24 04:10 86 12 134/80 97 Trach Collar 01/16/24 02:00 88 22 136/85 94 01/16/24 01:33 96 H 24 154/118 H 94 01/16/24 01:00 85 20 112/78 96 01/16/24 00:30 82 22 112/79 95 01/16/24 00:00 83 24 117/69 90 01/15/24 23:32 83 01/15/24 23:30 85 22 114/73 92 01/15/24 22:00 79 18 104/70 95 01/15/24 21:30 82 22 120/84 96 01/15/24 21:00 80 22 135/76 94 01/15/24 20:30 80 18 127/72 96 Laboratory Results 01/16/24 03:48 01/16/24 03:48 PG Care Time/CCT Total # of Minutes Spent Total Time Spent with Patient: I personally spent: 55 minutes today on clinical care activities including: reviewing chart notes and vital signs reviewing serial labs reviewing studies reviewing past records and complex medical history examining and counseling the patient counseling the patient's family writing orders documentation Coding Level of Care Code 66410 SUB INP/OBS CARE 3/50MIN Diagnoses Hypokalemia E87.6 Acute on chronic hypoxic respiratory failure J96.21 Chronic diastolic heart failure I50.32 Type 2 diabetes mellitus E11.9 Obesity hypoventilation syndrome E66.2 Tracheostomy dependence Z93.0 Morbid obesity with BMI of 60.0-69.9, adult E66.01; Z68.44 Cor pulmonale I27.81 Chronic obstructive pulmonary disease J44.9 COPD type: unspecified COPD (9) Chronic obstructive pulmonary disease COPD type: unspecified COPD Qualified Code(s): J44.9 - Chronic obstructive pulmonary disease, unspecified
[2024-01-16] MEDS: TOPIRAMATE 100 MG TAB PO SCH (08:33)
[2024-01-16] MEDS: METOPROLOL TARTRATE 25 MG TAB PO SCH (08:33)
[2024-01-16] MEDS: SPIRONOLACTONE 25 MG TAB PO SCH (08:33)
[2024-01-16] MEDS: ENOXAPARIN INJ 40 MG/0.4 ML SYR SQ SCH (08:33)
[2024-01-16] MEDS: ASPIRIN 81 MG ECTAB PO SCH (08:34)
[2024-01-16] MEDS: SERTRALINE HCL 50 MG TABLET PO SCH (08:34)
[2024-01-16] MEDS: FOLIC ACID 1 MG TAB PO SCH (08:34)
[2024-01-16] MEDS: buPROPion SR 100 MG TABCR PO SCH ×2 (08:34→23:34)
[2024-01-16] MEDS: ISOSORBIDE MONO EXTENDED REL 30 MG TABCR PO SCH (08:34)
[2024-01-16] MEDS: MULTIVITAMIN TAB PO SCH (08:34)
[2024-01-16] MEDS: Ipratropium HFA Inhaler (Combivent Respimat P&T Subs) INH SCH (08:39)
[2024-01-16] MEDS: POTASSIUM CHLORIDE 20 MEQ/15 ML UDC PO STA ×2 (08:40→13:30)
[2024-01-16] MEDS: FUROSEMIDE 80 MG TAB PO SCH (08:41)
[2024-01-16] MEDS: cefTRIAXone SODIUM 2,000 MG in DEXTROSE 5 % MINI-B 50 ML IV SCH (08:57)
[2024-01-16] MEDS ORDERED: LANTUS PER UNIT CHARGE SQ SCH (09:00)
[2024-01-16] MEDS ORDERED: IPRATROPIUM BROMIDE/ALBUTEROL respimat INH INH SCH (09:00)
[2024-01-16] MEDS: fentaNYL 25 MCG/HR TDSY TD SCH (09:03)
[2024-01-16] MEDS: CHECK fentaNYL PATCH PLACEMENT SCH (09:05)
[2024-01-16 13:18] LABS: Adenovirus PCR Not Detected (NotDetected); Bordetella parapertussis PCR Not Detected (NotDetected); Bordetella pertussis PCR Not Detected (NotDetected); Chlamydia pneumoniae PCR Not Detected (NotDetected); Coronavirus 229E PCR Not Detected (NotDetected); Coronavirus CoV-2 (COVID19)PCR Not Detected (NotDetected); Coronavirus HKU1 PCR Not Detected (NotDetected); Coronavirus NL63 PCR Not Detected (NotDetected); Coronavirus OC43PCR Not Detected (NotDetected); Human Metapneumovirus PCR Not Detected (NotDetected); Influenza A PCR Not Detected (NotDetected); Influenza B PCR Not Detected (NotDetected); Mycoplasma pneumoniae PCR Not Detected (NotDetected); Parainfluenza Virus 1 PCR Not Detected (NotDetected); Parainfluenza Virus 2 PCR Not Detected (NotDetected); Parainfluenza Virus 3 PCR Not Detected (NotDetected); Parainfluenza Virus 4 PCR Not Detected (NotDetected); Respiratory Syncytial VirusPCR Not Detected (NotDetected); Rhinovirus/Enterovirus PCR Not Detected (NotDetected)
--- NOTE | 2024-01-16 13:33 | Electrocardiogram Report ---
Test Reason : Blood Pressure : / mmHG Vent. Rate : 081 BPM Atrial Rate : 081 BPM P-R Int : 244 ms QRS Dur : 156 ms QT Int : 476 ms P-R-T Axes : 071 -38 002 degrees QTc Int : 552 ms Sinus rhythm with 1st degree A-V block Left axis deviation Right bundle branch block Poor R wave progression, consider anterior AL vs. lead placement vs. LVH Abnormal ECG When compared with ECG of 08-JAN-2024 11:48, Premature atrial complexes are no longer Present Right bundle branch block has replaced Incomplete right bundle branch block Criteria for Inferior infarct are no longer Present Confirmed by Cy Aponte ([id number]) on 01/16/2024 1:33:29 PM Referred By: REFERRED SELF Confirmed By:Cy Aponte
[2024-01-16] MEDS: SODIUM CHLOR 7% 4 ML NEB NEB SCH (20:35)
--- NOTE | 2024-01-16 21:10 | Billing Data ---
Date of Service January 16, 2024 Coding Level of Care Code 68159 INT INP/OBS CARE
[2024-01-16] MEDS: MELATONIN 3 MG TAB PO SCH (23:31)
[2024-01-16] MEDS: ATORVASTATIN 40 MG TAB PO SCH (23:32)
[2024-01-17 06:59] LABS: Hematocrit (blood only) 40.8 % (37.0-47.0); Hemoglobin 12.4 g/dl (12.0-16.0); Mean Corpuscular Hemoglobin 26.7 pg (25.0-34.0); Mean Corpuscular Hgb Conc 30.4 g/dL (32.0-36.0); Mean Corpuscular Volume 87.7 fL (80.0-100.0); Mean Platelet Volume 8.8 fL (9.4-12.4); Platelet Count 287 K/uL (130-400); RDW Coefficient of Variation 16.5 % (11.5-14.5); RDW Standard Deviation 52.7 fL (36.4-46.3); Red Blood Count 4.65 M/uL (4.20-5.40); White Blood Count 12.06 K/ul (4.8-10.8)
[2024-01-17 07:17] LABS: BUN Creatinine Ratio 22.2 (10-20); Calcium 9.4 mg/dl (8.6-10.3); Creatinine Clr Calc Pharmacy 51.1 ml/min; Est GFR (African American) 38.8 ml/min; Est GFR (Non-African American) 33.5 ml/min
[2024-01-17] MEDS: ACETAMINOPHEN 500 MG TAB PO SCH (08:48)
[2024-01-17] MEDS: POTASSIUM CHLORIDE CRTAB 20 MEQ TABCR PO SCH (10:12)
--- NOTE | 2024-01-17 12:00 | Hospitalist Progress Note ---
Date of Service January 17, 2024 Assessment & Plan (1) Acute on chronic respiratory failure with hypoxia and hypercapnia: Plan: acute component 2nd to b/l basilar pneumonia chronic component 2nd to OHS/RASHAAD, ?COPD keep sats low 90s VBG obtained to ensure no worsening resp acidosis -- compensated (2) Pneumonia: Plan: b/l basilar - as seen on CT chest today (cxr was unhelpful due to body habitus, thus obtained CT chest) certainly at risk of gram neg pneumonia no h/o aspiration change rocephin to cefepime check MRSA swab supportive care sputum culture - obtain via tracheal aspirate? cont saline nebs cont duonebs (3) Acute metabolic encephalopathy: Plan: 2nd to pneumonia 2nd to UTI low sodium could potentially play a role supportive care low threshold to repeat a VBG if any worsening (4) UTI (urinary tract infection): Plan: 2nd GNR obtained CT a/p due to prior h/o kidney stones - neg for such changing rocephin to cefepime follow cultures (5) Hypokalemia: Plan: increase replacement to 40meq TID (6) Weakness: Plan: multifactorial - chronic deconditioning, acute illness, electrolyte issues, etc (7) Tracheostomy present: Plan: chronic for RASHAAD (8) Morbid obesity: Plan: BMI 59 (9) Obesity hypoventilation syndrome: Plan: avoid over-oxygenation VBG results as above trach in place (10) Demand ischemia: Plan: scant elevation of HS trop myocardial demand ischemia in setting of pneumonia/UTI/etc (11) GERD (gastroesophageal reflux disease): Plan: cont PPI (12) CHF (congestive heart failure): Plan: mild systolic CHF, EF 40s compensated on exam cont BB, lasix, aldactone, etc (13) Hyponatremia: Plan: 2nd to lasix, perhaps poor po intake, etc would not hydrate given her systolic dysfunction serial labs (14) DVT prophylaxis: Plan: lovenox (15) Type 2 diabetes mellitus: Plan: a1c 6.9% in 09/2023 on insulin pump at home with steroids for gout & lungs will ask pharmacy to provide glycemic oversight as BSGs will rise with steroids (16) Hypothyroidism: Plan: TSH wnl cont synthroid (17) Acute gout: Plan: left mid-foot, left great toe uric acid level 14.1 steroids for #18 will cover this well (18) COPD exacerbation: Plan: starting solumedrol 40mg IV BID nebs etc see above in #1, etc Plan daughter Daniel extensively updated by phone this evening Admission and Anticipated Discharge Date Admission Date: January 15, 2024 Subjective patient very sleepy during the visit she did wake up for me when I called her name, and shook her head yes when asked if she felt poorly she endorsed cough, dyspnea, and having "long stringy mucous" she confirmed she has been using fentanyl patch 25mcg at home, not 25+ 12 while speaking with her she fell asleep tele overnight wnl Review of Systems Review of Systems: gen - weak, fatigued cv - no chest pain but does feel congested pulm - dyspneic, coughing GI - no pain or vomiting musculo - left foot pain - severe Physical Exam Physical Exam: gen - looks unwell, tachypneic, sleepy, morbidly obese mouth - MMM neck - no obvious JVD; trach in place (metal) heart - RRR, s1 s2, no murmur lungs - diffuse wheezes b/l, faint rales bases, tachypneic abd - soft NT ND BS+ ext - right leg is shorter than left leg, no edema, pulses 2+ b/l musculo - left mid-foot erythema & swelling & tenderness; left great toe podagra psych - sleepy Results & Data Results & Data Vital Signs (Past 12 Hours) Vital Signs Temp Pulse Resp BP Pulse Ox O2 Del Method O2 Flow Rate 01/17/24 11:32 88 20 93 Trach Collar 8 01/17/24 10:40 36.8 C 86 22 108/67 94 Face Tent 8 01/17/24 08:29 36.9 C 86 15 108/64 93 Face Tent 8 01/17/24 07:50 82 20 95 Trach Collar 8 01/17/24 07:30 Trach Collar 01/17/24 07:18 37.7 C H 93 H 24 112/68 94 Trach Collar 8 01/17/24 05:08 Trach Collar 8 01/17/24 04:00 36.7 C 82 18 126/69 93 Trach Collar 8 FiO2 01/17/24 11:32 30 01/17/24 10:40 01/17/24 08:29 01/17/24 07:50 30 01/17/24 07:30 01/17/24 07:18 01/17/24 05:08 01/17/24 04:00 Laboratory Results Laboratory Results - last 48 hr 01/16/24 01/16/24 01/16/24 11:23 16:54 20:28 WBC RBC Hgb Hct MCV MCH MCHC RDW Std Deviation RDW Coeff of Amee Plt Count MPV Absolute Nucleated RBC Nucleated RBC % (auto) VBG pH VBG pCO2 VBG pO2 VBG HCO3 VBG O2 Saturation VBG Base Excess Sodium Potassium 3.2 L Chloride Carbon Dioxide Anion Gap BUN Creatinine Est Cr Clr Drug Dosing Est GFR ( Amer) Est GFR (Non-Af Amer) BUN/Creatinine Ratio Glucose POC Glucose 189 H 195 H Uric Acid Calcium Ammonia C-Reactive Protein Procalcitonin 0.17 Nasal Screen MRSA (PCR) Adenovirus (PCR) B. pertussis DNA (PCR) B.parapertussis DNA PCR C. pneumoniae DNA (PCR) Coronavirus OC43 (PCR) Coronavirus HKU1 (PCR) Coronavirus 229E (PCR) SARS-CoV-2 (PCR) Coronavirus NL63 (PCR) Human Metapneumovir PCR Influenza Type A (PCR) Influenza Type B (PCR) M. pneumoniae (PCR) Parainfluenza 1 (PCR) Parainfluenza 2 (PCR) Parainfluenza 3 (PCR) Parainfluenza 4 (PCR) RSV (PCR) Entero/Rhino (PCR) 01/16/24 01/17/24 01/17/24 Unknown 05:45 07:54 WBC 12.06 H RBC 4.65 Hgb 12.4 Hct 40.8 MCV 87.7 MCH 26.7 MCHC 30.4 L RDW Std Deviation 52.7 H RDW Coeff of Amee 16.5 H Plt Count 287 MPV 8.8 L Absolute Nucleated RBC Nucleated RBC % (auto) VBG pH VBG pCO2 VBG pO2 VBG HCO3 VBG O2 Saturation VBG Base Excess Sodium 132 L Potassium 3.0 L Chloride 87 L Carbon Dioxide 38 H Anion Gap 7 BUN 35 H Creatinine 1.58 H Est Cr Clr Drug Dosing 51.1 Est GFR ( Amer) 38.8 Est GFR (Non-Af Amer) 33.5 BUN/Creatinine Ratio 22.2 H Glucose 153 H POC Glucose 168 H Uric Acid Calcium 9.4 Ammonia C-Reactive Protein Procalcitonin Nasal Screen MRSA (PCR) Adenovirus (PCR) Not Detected B. pertussis DNA (PCR) Not Detected B.parapertussis DNA PCR Not Detected C. pneumoniae DNA (PCR) Not Detected Coronavirus OC43 (PCR) Not Detected Coronavirus HKU1 (PCR) Not Detected Coronavirus 229E (PCR) Not Detected SARS-CoV-2 (PCR) Not Detected Coronavirus NL63 (PCR) Not Detected Human Metapneumovir PCR Not Detected Influenza Type A (PCR) Not Detected Influenza Type B (PCR) Not Detected M. pneumoniae (PCR) Not Detected Parainfluenza 1 (PCR) Not Detected Parainfluenza 2 (PCR) Not Detected Parainfluenza 3 (PCR) Not Detected Parainfluenza 4 (PCR) Not Detected RSV (PCR) Not Detected Entero/Rhino (PCR) Not Detected 01/17/24 01/17/24 11:59 12:18 WBC RBC Hgb Hct MCV MCH MCHC RDW Std Deviation RDW Coeff of Amee Plt Count MPV Absolute Nucleated RBC Nucleated RBC % (auto) VBG pH 7.45 H VBG pCO2 59 H VBG pO2 54 VBG HCO3 41 VBG O2 Saturation 87.2 VBG Base Excess 14.2 Sodium Potassium Chloride Carbon Dioxide Anion Gap BUN Creatinine Est Cr Clr Drug Dosing Est GFR ( Amer) Est GFR (Non-Af Amer) BUN/Creatinine Ratio Glucose POC Glucose 219 H Uric Acid 14.1 H Calcium Ammonia 35.0 C-Reactive Protein 9.01 H Procalcitonin Nasal Screen MRSA (PCR) Adenovirus (PCR) B. pertussis DNA (PCR) B.parapertussis DNA PCR C. pneumoniae DNA (PCR) Coronavirus OC43 (PCR) Coronavirus HKU1 (PCR) Coronavirus 229E (PCR) SARS-CoV-2 (PCR) Coronavirus NL63 (PCR) Human Metapneumovir PCR Influenza Type A (PCR) Influenza Type B (PCR) M. pneumoniae (PCR) Parainfluenza 1 (PCR) Parainfluenza 2 (PCR) Parainfluenza 3 (PCR) Parainfluenza 4 (PCR) RSV (PCR) Entero/Rhino (PCR) PG Care Time/CCT Total # of Minutes Spent Total Time Spent with Patient: Total time spent is greater than 50% in coordination of care (as documented) at patient's floor/unit and/or counseling patient: Coding Level of Care Code 58586 SUB INP/OBS CARE 3/50MIN Diagnoses Acute on chronic respiratory failure with hypoxia and hypercapnia J96.21; J96.22 Pneumonia J18.9 Acute metabolic encephalopathy G93.41 UTI (urinary tract infection) N39.0 Hypokalemia E87.6 Weakness R53.1 Tracheostomy present Z93.0 Morbid obesity E66.01 Obesity hypoventilation syndrome E66.2 Demand ischemia I24.89 GERD (gastroesophageal reflux disease) K21.9 CHF (congestive heart failure) I50.813 Heart failure chronicity: acute on chronic Heart failure type: right-sided Hyponatremia E87.1 DVT prophylaxis Z29.9 Type 2 diabetes mellitus E11.9 Hypothyroidism E03.9 Acute gout M10.9 COPD exacerbation J44.1 (12) CHF (congestive heart failure) Heart failure chronicity: acute on chronic Heart failure type: right-sided Qualified Code(s): I50.813 - Acute on chronic right heart failure
[2024-01-17 13:01] LABS: Base Excess VBG 14.2 mEq/L; HCO3 VBG 41 mmol/L; Oxygen Saturation VBG 87.2 %; PCO2 VBG 59 mmHg (38-50); PO2 VBG 54 mmHg; pH VBG 7.45 (7.36-7.41)
[2024-01-17 13:35] LABS: C Reactive Protein 9.01 mg/dl (0-0.5); Uric Acid 14.1 mg/dl (2.6-7.2)
[2024-01-17] MEDS: oxyCODONE HCL IR 5 MG TAB (IMMEDIATE RELEASE) PO PRN (14:30)
[2024-01-17] MEDS ORDERED: PHARMACY GLYCEMIC MGMT CONSULT PRN (14:36)
--- NOTE | 2024-01-17 14:56 | XRay Report ---
XR chest 1V portable CLINICAL HISTORY: b/l wheeezes worse on R, fever; ?pneumonia TECHNIQUE: Single frontal radiograph of the chest was obtained. Comparison: Comparison is made to chest radiograph 01/15/2024 FINDINGS: Lines and tubes are stable. Cardiomegaly is noted. The lungs are clear. No evidence of pleural effusi on or pneumothorax. IMPRESSION: No acute chest disease. Cardiomegaly is noted. No evidence of pneumonia. ACT 112: Negative or not required by law. Electronically signed by: Layo Cutler M.D. 01/17/2024 2:54 PM
--- NOTE | 2024-01-17 15:39 | XRay Report ---
XR foot LT 2V CLINICAL HISTORY: L mid-foot pain; gout? CPPD? Fx? COMPARISON: Left foot radiographs July 11, 2018. FINDINGS: Tarsometatarsal joints are intact. No acute fracture is identified within the left foot. E valuation of the toes is mildly compromised given chronic deformity. There are posterior and plantar calcaneal spurs. There is moderate mid foot osteoarthritis. In addition, there is moderate osteoarthr itis of the interphalangeal joint of the left first toe. Moderate vascular calcification is present. No soft tissue calcifications are identified. No erosions are present. IMPRESSION: 1. No acute fractures within the left foot. 2. Moderate mid foot osteoarthritis. Moderate osteoarthritis of the interphalangeal joint of the left first toe. ACT 112: Negative or not required by law. Electronically signed by: Toni Ohara M.D. 01/17/2024 3:38 PM
[2024-01-17] MEDS: methylPREDNISolone 40 MG in SYRINGE 0 ML IV SCH (16:56)
--- NOTE | 2024-01-17 17:10 | CT Scan Report ---
CT OF THE ABDOMEN AND PELVIS WITHOUT CONTRAST CLINICAL HISTORY: fever, UTI, h/o stones; eval obstructing stone COMPARISON STUDY: CT of the abdomen and pelvis March 16, 2023. Renal ultrasound March 09, 2023. CT o f the abdomen and pelvis May 09, 2007. TECHNIQUE: Axial images of the abdomen and pelvis were obtained without IV contrast. Images were revi ewed in the axial, sagittal, and coronal planes. Automated exposure control was utilized for the mandie dy. A dose lowering technique was utilized adhering to the principles of ALARA. FINDINGS: Please note that the chest CT will be reported separately. Pneumatosis, free air or portal venous gas is present. There is a 3 mm left renal calculus. No ureteral calculi are present. There is no hydronephrosis. Payne balloon within the bladder is noted. The bladder is collapsed. There is an indeterminate left upper pole renal lesion which measures approximately 3.4 cm. There is also a 2.6 c m lesion within the lower pole of the left kidney. This measures above water attenuation but was show n to likely reflect a cyst on prior renal ultrasound. No biliary ductal dilatation status post cholec ystectomy. This exam is optimized given body wall contacting the gantry. Nodularity of the liver surf ty is noted. Spleen, adrenal glands and pancreas are unremarkable. There is no evidence for a bowel obstruction. There is laxity of the anterior abdominal wall. There is no lymphadenopathy. No fluid co llections are present. No acute fractures are present. Sigmoid diverticulosis without evidence for ac [place] diverticulitis. IMPRESSION: 1. 3 mm left renal calculus. No ureteral calculi or hydronephrosis. 2. Indeterminate left upper pole renal lesion which measures approximately 3.4 cm. This could reflect a solid renal lesion or complex cyst. Nonemergent renal protocol CT is recommended. 3. Exam compromised given body wall contacting the gantry. No acute findings within the abdomen or pe lvis on unenhanced exam. ACT 112: Positive. There are findings on this exam that require communication between the performing entity and the patient following Patient Test Result Information Act ([place] Act 112) guidelines. Electronically signed by: Toni Ohara M.D. 01/17/2024 5:09 PM
--- NOTE | 2024-01-17 17:10 | CT Scan Report ---
CT SCAN OF THE CHEST WITHOUT IV CONTRAST CLINICAL HISTORY: Wheezing. Respiratory failure. COMPARISON STUDY: Chest x-ray dated 01/17/2024. Chest CT dated 01/30/2015. TECHNIQUE: CT scan of the thorax was performed from the thoracic inlet to the upper abdomen. Images are reviewed in the axial, sagittal, and coronal planes. IV contrast was not administered for this ex amination as per the referring clinician. A dose lowering technique was utilized adhering to the jimmie ncinick of POLY. The examination is significantly degraded by large body habitus, and streak artifac t in the body wall abutting the CT gantry. There is also streak artifact from the arms which could no t be elevated of the chest as well as motion artifact. FINDINGS: Thyroid: Atrophic versus surgically absent. Thoracic aorta: There is mild atherosclerotic calcification of the thoracic aorta, which is normal in caliber and demonstrates standard 3-vessel arch anatomy. Heart: The heart is enlarged and without pericardial effusion. The coronary arteries are densely calc ified. There is lipomatous hypertrophy of the intra-atrial septum. Lungs and pleural spaces: A tracheostomy is in place. Evaluation of the lung parenchyma is degraded b y motion artifact. Secretions are noted in the trachea. There are trace pleural effusions with depend ent consolidation, right greater than left. Mediastinum: Prominent mediastinal lymph nodes are not pathologically enlarged by size criteria. Leticia: Not well assessed without IV contrast. Axillae: There is no axillary lymphadenopathy. Upper abdomen: The liver steatotic and shows morphologic changes of cirrhosis. The spleen appears enl arged. A small hiatal hernia is noted. Skeletal structures: The skeletal structures are osteopenic. No lytic or blastic bony lesions are see n. Degenerative change is noted in the shoulders and spine. There are chronic/healed bilateral rib fr actures. IMPRESSION: 1. Significantly streak and motion degraded examination. 2. Marked cardiomegaly and trace pleural effusions. 3. Dependent consolidation is seen at both lung bases. This could represent atelectasis and/or a mild pneumonitis. Clinical correlation will be required and radiographic follow-up to resolution is recom mended. 4. The liver is enlarged, steatotic, and shows morphologic change of cirrhosis. There is also splenom egaly. 5. Additional findings as above. ACT 112: Negative or not required by law. Electronically signed by: Jasper Hancock M.D. 01/17/2024 5:08 PM
[2024-01-17] MEDS: LANTUS PER UNIT CHARGE SC ONE ×2 (17:46→17:48)
[2024-01-17] MEDS: INSULIN ASPART PER UNIT CHARGE SC SCH ×2 (17:48→23:45)
[2024-01-17] MEDS: CEFEPIME 2,000 MG in SYRINGE 0 ML IV SCH (20:55)
[2024-01-18] MEDS: ALBUT/IPRATROP 3MG/0.5MG NEB 3 ML VIAL NEB STA (00:56)
[2024-01-18 06:19] LABS: Hematocrit (blood only) 42.2 % (37.0-47.0); Mean Corpuscular Hemoglobin 26.8 pg (25.0-34.0); Mean Corpuscular Hgb Conc 30.8 g/dL (32.0-36.0); Mean Platelet Volume 8.8 fL (9.4-12.4); Nucleated RBC # (auto) 0.02 K/uL (0.00-0.12); Nucleated RBC % (auto) 0.1 %; Platelet Count 273 K/uL (130-400); RDW Coefficient of Variation 16.2 % (11.5-14.5); RDW Standard Deviation 51.2 fL (36.4-46.3); Red Blood Count 4.85 M/uL (4.20-5.40); White Blood Count 13.51 K/ul (4.8-10.8)
[2024-01-18 06:43] LABS: BUN Creatinine Ratio 24.9 (10-20); Calcium 9.1 mg/dl (8.6-10.3); Creatinine Clr Calc Pharmacy 45.6 ml/min; Est GFR (African American) 33.9 ml/min; Est GFR (Non-African American) 29.2 ml/min; Potassium 3.4 mmol/L (3.5-5.1)
--- NOTE | 2024-01-18 09:30 | Pharmacy Report ---
Pharmacy Glycemic Short Note 2 - Date of Service January 18, 2024 - Glycemic Short BSG Results (Last 24 hours): 01/17/24 01/17/24 01/17/24 11:59 17:05 21:03 Glucose POC Glucose 219 H 199 H 302 H* 01/17/24 01/18/24 01/18/24 23:39 00:04 04:01 Glucose POC Glucose 248 H 258 H 170 H 01/18/24 01/18/24 05:46 08:00 Glucose 182 H POC Glucose 201 H OUTPATIENT ANTIDIABETIC REGIMEN: * Jardiance 10mg PO Daily * Insulin pump: basal 105 units/day, bolus ~ 60 units/day * TDD = 165u/day ASSESSMENT: * 68yo Female, admitted with hypokalemia, PMH of morbid obesity, chronic right femur fracture (non-operable) with chronic pain, nonambulatory status, tracheostomy dependent, OHS/COPD/chronic respiratory failure, HFpEF (LVEF of 55-60%), cor pulmonale, anxiety, DM2, GERD, CKD4, hypothyroidism, HTN, CAD. * Patient managed on insulin pump, changed to glycemic consult while inpatient for SC insulin, patient on Solu-Medrol 40mg IV Q12H. * NovoLog parameters will need to be loosened as steroids are tapered. PLAN FOR INPATIENT GLYCEMIC CONTROL: * Hold outpatient oral diabetes medications * Basal insulin * Lantus 65-70 units SQ BID (65 units for BSG < 180, 70 units for BSG 180 or greater) * Bolus insulin * NovoLog per scale ACHS or Q6hrs while NPO * Goal Range: Low 110 mg/dL - High 140 mg/dL * Correction Factor: 8 mg/dL/unit * Nutritional / Prandial insulin per carb ratio of 1 unit per 1.5 grams CHO consumed
[2024-01-18] MEDS: LANTUS PER UNIT CHARGE SC ONE (09:52)
[2024-01-18] MEDS: ONDANSETRON INJ 2 MG/ML 2 ML VIAL IV PRN (10:20)
[2024-01-18] MEDS: MEROPENEM 500 MG in SYRINGE 0 ML IV SCH (12:22)
--- NOTE | 2024-01-18 13:46 | Hospitalist Progress Note ---
Date of Service January 18, 2024 Assessment & Plan (1) Acute on chronic respiratory failure with hypoxia and hypercapnia: Plan: acute component 2nd to b/l basilar pneumonia +/- bronchitis/COPD exacerbation IMPROVED chronic component 2nd to OHS/RASHAAD, ?COPD keep sats low 90s VBG obtained to ensure no worsening resp acidosis -- compensated (2) Pneumonia: Plan: b/l basilar - as seen on CT chest certainly at risk of gram neg pneumonia no h/o aspiration initially on rocephin, then changed to cefepime for better gram neg coverage now cefepime changed to meropenem as her urine cx grew ESBL e.coli meropenem will provide urine & lung coverage checked MRSA swab - negative; defer on MRSA coverage supportive care sputum culture - pending cont saline nebs cont duonebs (3) Acute metabolic encephalopathy: Plan: 2nd to pneumonia 2nd to UTI low sodium could potentially play a role as well IMPROVED (4) UTI (urinary tract infection): Plan: 2nd ESBL e.coli obtained CT a/p due to prior h/o kidney stones - neg for such changing cefepime to meropenem which will cover the lungs and cover the ESBL e.coli in urine cont paul for now (5) Hypokalemia: Plan: slowly improving with K-dur 40meq TID repeat BMP with mag in am (6) Weakness: Plan: multifactorial - chronic deconditioning, acute illness, electrolyte issues, etc will need PT/OT (7) Tracheostomy present: Plan: chronic for RASHAAD (8) Morbid obesity: Plan: BMI 59 (9) Obesity hypoventilation syndrome: Plan: avoid over-oxygenation VBG results noted from yesterday trach in place (10) Demand ischemia: Plan: scant elevation of HS trop myocardial demand ischemia in setting of pneumonia/UTI/etc (11) GERD (gastroesophageal reflux disease): Plan: cont PPI (12) CHF (congestive heart failure): Plan: right ventricular systolic dysfunction - 2nd to OHS/RASHAAD, etc echo 09/2023 - EF 55-60%, but RV dysfunction noted remains compensated on exam or even modestly dry due to poor PO intake, diarrhea, etc plan to hold AM lasix tomorrow can cont aldactone and BB (13) Hyponatremia: Plan: 2nd to lasix, perhaps poor po intake, diarrhea, etc serial labs (14) DVT prophylaxis: Plan: lovenox - should be BID dosing given her body habitus (15) Type 2 diabetes mellitus: Plan: a1c 6.9% in 09/2023 on insulin pump at home with steroids for gout & lungs will asked pharmacy to provide glycemic oversight as BSGs will rise with steroids appreciate their assistance (16) Hypothyroidism: Plan: TSH wnl cont synthroid (17) Acute gout: Plan: left mid-foot, left great toe uric acid level 14.1 steroids for #18 will cover this MUCH improved with 24 hours of steroids give a gout diet handout at some point (18) COPD exacerbation: Plan: IMPROVED no wheezes today decrease solumedrol to 30mg IV BID nebs etc see above in #1, etc (19) C. difficile diarrhea: Plan: although she is cdiff gene+ and her toxin is negative I would still treat this as active CDI profuse diarrhea in the setting of broad-spectrum abx usage, stool is copious with mucous, at high risk of complications, etc further, there is excellent documentation in the literature that the toxin can be falsely negative with active CDI thus, start vancomycin 125mg QID add colestipol 1gm BID for stool bulking purposes avoid loperamide Plan daughter Daniel extensively updated by phone again this evening PT, OT when able Admission and Anticipated Discharge Date Admission Date: January 15, 2024 Subjective patient feeling a little better today still not well, but much more awake/alert appetite remains poor still with cough/congestion but her dyspnea is improved left foot pain nearly resolved this am she started to have severe liquid diarrhea filled with mucous "it is pouring out" no blood denies abd pain tele overnight wnl Review of Systems Review of Systems: gen - no fevers but still very tired/fatigued with poor appetite cv - no chest pain but does still have congestion pulm - ongoing cough but dyspnea improved GI - no vomiting Physical Exam Physical Exam: gen - looks better today; much more awake/alert/talkative, even smiling once mouth - MMM neck - no obvious JVD; trach in place (metal) heart - RRR, s1 s2, no murmur lungs - wheezes resolved today; minimal faint rales bases; tachypnea/increased work of breathing improved today abd - soft NT ND BS+ ext - right leg is shorter than left leg, no edema, pulses 2+ b/l musculo - left mid-foot erythema & swelling & tenderness - improved/resolved; l eft great toe podagra improved psych - a/o x 3; she doesn't recall many of the events of yesterday Results & Data Results & Data Vital Signs (Past 12 Hours) Vital Signs Temp Pulse Pulse Resp BP BP Pulse Ox 01/18/24 12:53 36.7 C 87 18 132/82 93 01/18/24 11:34 71 14 92 01/18/24 11:08 90 136/84 01/18/24 08:27 77 19 99 01/18/24 08:00 01/18/24 07:59 36.9 C 82 18 147/70 H 93 O2 Del Method O2 Flow Rate FiO2 01/18/24 12:53 Trach Collar 9 01/18/24 11:34 Trach Collar 9 30 01/18/24 11:08 01/18/24 08:27 Trach Collar 9 30 01/18/24 08:00 Trach Collar 8 01/18/24 07:59 Trach Collar 8 Laboratory Results Laboratory Results - last 24 hr 01/17/24 01/17/24 01/17/24 17:05 21:03 23:39 WBC RBC Hgb Hct MCV MCH MCHC RDW Std Deviation RDW Coeff of Amee Plt Count MPV Absolute Nucleated RBC Nucleated RBC % (auto) Sodium Potassium Chloride Carbon Dioxide Anion Gap BUN Creatinine Est Cr Clr Drug Dosing Est GFR ( Amer) Est GFR (Non-Af Amer) BUN/Creatinine Ratio Glucose POC Glucose 199 H 302 H* 248 H Calcium Nasal Screen MRSA (PCR) Stl C. diff Tox B Gene 01/18/24 01/18/24 01/18/24 00:04 04:01 05:46 WBC 13.51 H RBC 4.85 Hgb 13.0 Hct 42.2 MCV 87.0 MCH 26.8 MCHC 30.8 L RDW Std Deviation 51.2 H RDW Coeff of Amee 16.2 H Plt Count 273 MPV 8.8 L Absolute Nucleated RBC 0.02 Nucleated RBC % (auto) 0.1 Sodium 132 L Potassium 3.4 L Chloride 89 L Carbon Dioxide 32 Anion Gap 11 BUN 44 H Creatinine 1.77 H Est Cr Clr Drug Dosing 45.6 Est GFR ( Amer) 33.9 Est GFR (Non-Af Amer) 29.2 BUN/Creatinine Ratio 24.9 H Glucose 182 H POC Glucose 258 H 170 H Calcium 9.1 Nasal Screen MRSA (PCR) Stl C. diff Tox B Gene 01/18/24 01/18/24 01/18/24 08:00 11:12 Unknown WBC RBC Hgb Hct MCV MCH MCHC RDW Std Deviation RDW Coeff of Amee Plt Count MPV Absolute Nucleated RBC Nucleated RBC % (auto) Sodium Potassium Chloride Carbon Dioxide Anion Gap BUN Creatinine Est Cr Clr Drug Dosing Est GFR ( Amer) Est GFR (Non-Af Amer) BUN/Creatinine Ratio Glucose POC Glucose 201 H 245 H Calcium Nasal Screen MRSA (PCR) Negative Diagnostic Findings Microbiology 01/18/24 Unknown Sputum, Expectorated Gram Stain - Final 01/16/24 Unknown Urine,Clean Catch Urine Culture - Final Escherichia coli ESBL PG Care Time/CCT Total # of Minutes Spent Total Time Spent with Patient: Total time spent is greater than 50% in coordination of care (as documented) at patient's floor/unit and/or counseling patient: Coding Level of Care Code 55133 SUB INP/OBS CARE 3/50MIN Diagnoses Acute on chronic respiratory failure with hypoxia and hypercapnia J96.21; J96.22 Pneumonia J18.9 Acute metabolic encephalopathy G93.41 UTI (urinary tract infection) N39.0 Hypokalemia E87.6 Weakness R53.1 Tracheostomy present Z93.0 Morbid obesity E66.01 Obesity hypoventilation syndrome E66.2 Demand ischemia I24.89 GERD (gastroesophageal reflux disease) K21.9 CHF (congestive heart failure) I50.813 Heart failure chronicity: acute on chronic Heart failure type: right-sided Hyponatremia E87.1 DVT prophylaxis Z29.9 Type 2 diabetes mellitus E11.9 Hypothyroidism E03.9 Acute gout M10.9 COPD exacerbation J44.1 C. difficile diarrhea A04.72 (12) CHF (congestive heart failure) Heart failure chronicity: acute on chronic Heart failure type: right-sided Qualified Code(s): I50.813 - Acute on chronic right heart failure
[2024-01-18 14:06] LABS: Cdiff Toxin B Gene (2yr or >) Positive Cdiff Gene (Neg)
[2024-01-18 14:31] LABS: Cdiff Antigen Positive; Cdiff Toxin A+B Negative Cdiff Toxin (Negative)
[2024-01-18] MEDS: ADVANCED PROBIOTIC 625 MG CAPSULE PO SCH (15:42)
[2024-01-18] MEDS: CHERRY SYRUP 5 ML UDP PO SCH (16:22)
[2024-01-18] MEDS: VANCOMYCIN HCL 125 MG/2.5ML SOLN PO SCH (16:22)
[2024-01-18] MEDS: methylPREDNISolone 30 MG in SYRINGE 0 ML IV SCH (17:43)
[2024-01-18] MEDS: LANTUS PER UNIT CHARGE SC SCH (22:01)
[2024-01-18] MEDS: COLESTIPOL HCL 1 GM TAB PO SCH (22:01)
[2024-01-19 05:30] LABS: BUN Creatinine Ratio 27.4 (10-20); Calcium 8.2 mg/dl (8.6-10.3); Creatinine Clr Calc Pharmacy 45.4 ml/min; Est GFR (African American) 34.3 ml/min; Est GFR (Non-African American) 29.6 ml/min; Magnesium 2.2 mg/dl (1.7-2.4); Potassium 2.9 mmol/L (3.5-5.1)
[2024-01-19 05:37] LABS: Basophils # (auto) 0.03 K/uL (0.00-0.20); Basophils % (auto) 0.3 %; Eosinophils # (auto) 0.01 K/uL (0.00-0.50); Eosinophils % (auto) 0.1 %; Hematocrit (blood only) 39.9 % (37.0-47.0); Hemoglobin 12.1 g/dl (12.0-16.0); Immature Granulocytes % (auto) 4.1 %; Lymphocytes # (auto) 1.05 K/uL (1.20-3.40); Lymphocytes % (auto) 10.7 %; Mean Corpuscular Hemoglobin 26.8 pg (25.0-34.0); Mean Corpuscular Hgb Conc 30.3 g/dL (32.0-36.0); Mean Corpuscular Volume 88.3 fL (80.0-100.0); Mean Platelet Volume 8.9 fL (9.4-12.4); Monocytes # (auto) 0.95 K/uL (0.11-0.59); Monocytes % (auto) 9.7 %; Neutrophils # (auto) 7.36 K/uL (1.40-6.50); Neutrophils % (auto) 75.1 %; Platelet Count 279 K/uL (130-400); RDW Coefficient of Variation 16.4 % (11.5-14.5); RDW Standard Deviation 52.9 fL (36.4-46.3); Red Blood Count 4.52 M/uL (4.20-5.40)
[2024-01-19] MEDS: POTASSIUM CHLORIDE / WTR 10 MEQ/100 ML PLCT IV SCH (06:19)
--- NOTE | 2024-01-19 20:09 | Hospitalist Progress Note ---
Date of Service January 19, 2024 Assessment & Plan (1) Acute on chronic respiratory failure with hypoxia and hypercapnia: Plan: acute component 2nd to b/l basilar pneumonia + bronchitis/COPD exacerbation IMPROVED chronic component 2nd to OHS/RASHAAD, ?COPD keep sats low 90s VBG obtained to ensure no worsening resp acidosis -- compensated (2) Pneumonia: Plan: b/l basilar - as seen on CT chest certainly at risk of gram neg pneumonia no h/o aspiration initially on rocephin, then changed to cefepime for better gram neg coverage then cefepime changed to meropenem as her urine cx grew ESBL e.coli meropenem will provide urine & lung coverage including pseudomonas coverage in the lungs checked MRSA swab - negative; defer on MRSA coverage supportive care sputum culture - pending but thus far negative if pseudomonas is not isolated can likely revert back to ertapenem cont saline nebs cont duonebs (3) Acute metabolic encephalopathy: Plan: 2nd to pneumonia 2nd to UTI low sodium could potentially play a role as well altered MS resolved back to baseline (4) UTI (urinary tract infection): Plan: 2nd ESBL e.coli obtained CT a/p due to prior h/o kidney stones - neg for such changing cefepime to meropenem which will cover the lungs and cover the ESBL e.coli in urine cont paul (5) Hypokalemia: Plan: ongoing, worse today -- 2nd to diarrhea and poor intake replete with 30meq IV KCL cont K-dur 40meq TID hold lasix today BMP am mag noted to be wnl (6) Weakness: Plan: multifactorial - chronic deconditioning, acute illness, electrolyte issues, etc will need PT/OT (7) Tracheostomy present: Plan: chronic for RASHAAD (8) Morbid obesity: Plan: BMI 59-60 (9) Obesity hypoventilation syndrome: Plan: avoid over-oxygenation trach in place (10) Demand ischemia: Plan: scant elevation of HS trop myocardial demand ischemia in setting of pneumonia/UTI/etc (11) GERD (gastroesophageal reflux disease): Plan: cont PPI (12) CHF (congestive heart failure): Plan: right ventricular systolic dysfunction - 2nd to OHS/RASHAAD, etc echo 09/2023 - EF 55-60%, but RV dysfunction noted remains compensated on exam or even modestly dry due to poor PO intake, diarrhea, etc hold AM lasix today can cont aldactone and BB (13) Hyponatremia: Plan: 2nd to lasix, poor po intake, diarrhea, etc serial labs hold lasix (14) DVT prophylaxis: Plan: lovenox - should be BID dosing given her body habitus (15) Type 2 diabetes mellitus: Plan: a1c 6.9% in 09/2023 on insulin pump at home with steroids for gout & lungs will asked pharmacy to provide glycemic oversight as BSGs elias with steroids appreciate their assistance (16) Hypothyroidism: Plan: TSH wnl cont synthroid (17) Acute gout: Plan: left mid-foot, left great toe uric acid level 14.1 steroids for #18 will cover this MUCH improved with steroids give a gout diet handout (18) COPD exacerbation: Plan: IMPROVED no wheezes today plan to change to PO prednisone from solumedrol tomorrow cont nebs etc (19) C. difficile diarrhea: Plan: although she is cdiff gene+ and her toxin is negative I would still treat this as active CDI profuse diarrhea in the setting of broad-spectrum abx usage, stool is copious with mucous, at high risk of complications, etc further, there is excellent documentation in the literature that the toxin can be falsely negative with active CDI thus, started vancomycin 125mg QID - day #2 of such cont colestipol 1gm BID for stool bulking purposes avoid loperamide rectal tube in place Plan susan Sanchez extensively updated by phone last evening PT, OT when able Admission and Anticipated Discharge Date Admission Date: January 15, 2024 Subjective left foot pain resolved chronic right femur/knee pain unchanged breathing is comfortable sputum production has slowed denies dyspnea at rest today overall "just feels poorly" no appetite stomach feels "off" and uncomfortable had severe diarrhea overnight -- rectal tube placed staff report she is having stool come out around the tube denies vomiting unable to work with PT today tele overnight wnl Review of Systems Review of Systems: gen - fatigue/weak, poor appetite, no fever cv - no cp pulm - wheezing better GI - no blood per rectum Physical Exam Physical Exam: gen - awake/alert; again looks better today; a little agitated mouth - MMM neck - no obvious JVD; metal trach in place heart - RRR, s1 s2, no murmur lungs - minimal b/l wheezes; no increased work of breathing; I didn't hear rales today abd - soft NT ND BS+; rectal tube in place with liquid stool in collection bag ext - right leg is shorter than left leg, no edema, pulses 2+ b/l musculo - left mid-foot erythema & swelling & tenderness - resolved; left great toe podagra resolved psych - a/o x 3 Results & Data Results & Data Vital Signs (Past 12 Hours) Vital Signs Temp Pulse Pulse Pulse Resp BP Pulse Ox 01/19/24 17:12 36.6 C 70 18 114/62 95 01/19/24 16:27 77 16 95 01/19/24 15:19 73 01/19/24 11:48 36.7 C 77 19 116/70 97 01/19/24 11:16 75 14 98 01/19/24 10:09 01/19/24 08:11 65 O2 Del Method O2 Flow Rate FiO2 01/19/24 17:12 Trach Collar 8 01/19/24 16:27 Trach Collar 9 01/19/24 15:19 01/19/24 11:48 Trach Collar 8 01/19/24 11:16 Trach Collar 9 01/19/24 10:09 Trach Collar 8 01/19/24 08:11 Laboratory Results Laboratory Results - last 24 hr 01/18/24 01/19/24 01/19/24 21:03 00:28 04:00 WBC RBC Hgb Hct MCV MCH MCHC RDW Std Deviation RDW Coeff of Amee Plt Count MPV Immature Gran % (Auto) Neut % (Auto) Lymph % (Auto) [place] % (Auto) Eos % (Auto) Baso % (Auto) Neut # (Auto) Lymph # (Auto) [place] # (Auto) Eos # (Auto) Baso # (Auto) Immature Gran # (Auto) Sodium Potassium Chloride Carbon Dioxide Anion Gap BUN Creatinine Est Cr Clr Drug Dosing Est GFR ( Amer) Est GFR (Non-Af Amer) BUN/Creatinine Ratio Glucose POC Glucose 141 H 143 H 155 H Calcium Magnesium 01/19/24 01/19/24 01/19/24 04:34 08:15 12:38 WBC 9.80 RBC 4.52 Hgb 12.1 Hct 39.9 MCV 88.3 MCH 26.8 MCHC 30.3 L RDW Std Deviation 52.9 H RDW Coeff of Amee 16.4 H Plt Count 279 MPV 8.9 L Immature Gran % (Auto) 4.1 Neut % (Auto) 75.1 Lymph % (Auto) 10.7 [place] % (Auto) 9.7 Eos % (Auto) 0.1 Baso % (Auto) 0.3 Neut # (Auto) 7.36 H Lymph # (Auto) 1.05 L [place] # (Auto) 0.95 H Eos # (Auto) 0.01 Baso # (Auto) 0.03 Immature Gran # (Auto) 0.40 H Sodium 132 L Potassium 2.9 L Chloride 93 L Carbon Dioxide 30 Anion Gap 9 BUN 48 H Creatinine 1.75 H Est Cr Clr Drug Dosing 45.4 Est GFR ( Amer) 34.3 Est GFR (Non-Af Amer) 29.6 BUN/Creatinine Ratio 27.4 H Glucose 144 H POC Glucose 150 H 179 H Calcium 8.2 L Magnesium 2.2 01/19/24 17:21 WBC RBC Hgb Hct MCV MCH MCHC RDW Std Deviation RDW Coeff of Amee Plt Count MPV Immature Gran % (Auto) Neut % (Auto) Lymph % (Auto) [place] % (Auto) Eos % (Auto) Baso % (Auto) Neut # (Auto) Lymph # (Auto) [place] # (Auto) Eos # (Auto) Baso # (Auto) Immature Gran # (Auto) Sodium Potassium Chloride Carbon Dioxide Anion Gap BUN Creatinine Est Cr Clr Drug Dosing Est GFR ( Amer) Est GFR (Non-Af Amer) BUN/Creatinine Ratio Glucose POC Glucose 132 H Calcium Magnesium PG Care Time/CCT Total # of Minutes Spent Total Time Spent with Patient: Total time spent is greater than 50% in coordination of care (as documented) at patient's floor/unit and/or counseling patient: Coding Level of Care Code 10506 SUB INP/OBS CARE 3/50MIN Diagnoses Acute on chronic respiratory failure with hypoxia and hypercapnia J96.21; J96.22 Pneumonia J18.9 Acute metabolic encephalopathy G93.41 UTI (urinary tract infection) N39.0 Hypokalemia E87.6 Weakness R53.1 Tracheostomy present Z93.0 Morbid obesity E66.01 Obesity hypoventilation syndrome E66.2 Demand ischemia I24.89 GERD (gastroesophageal reflux disease) K21.9 CHF (congestive heart failure) I50.813 Heart failure chronicity: acute on chronic Heart failure type: right-sided Hyponatremia E87.1 DVT prophylaxis Z29.9 Type 2 diabetes mellitus E11.9 Hypothyroidism E03.9 Acute gout M10.9 COPD exacerbation J44.1 C. difficile diarrhea A04.72 (12) CHF (congestive heart failure) Heart failure chronicity: acute on chronic Heart failure type: right-sided Qualified Code(s): I50.813 - Acute on chronic right heart failure
[2024-01-20 07:01] LABS: BUN Creatinine Ratio 30.8 (10-20); Calcium 8.6 mg/dl (8.6-10.3); Creatinine Clr Calc Pharmacy 57.4 ml/min; Est GFR (African American) 43.8 ml/min; Est GFR (Non-African American) 37.8 ml/min; Potassium 3.9 mmol/L (3.5-5.1)
[2024-01-20] MEDS: POTASSIUM CHLORIDE CRTAB 20 MEQ TABCR PO SCH (08:45)
[2024-01-20] MEDS: ALUMINUM/MAGNESIUM/SIMETH (MAALOX MAX) 30 ML UDC PO PRN (11:32)
--- NOTE | 2024-01-20 14:48 | Pharmacy Report ---
Pharmacy Glycemic Short Note 2 - Date of Service January 20, 2024 - Glycemic Short BSG Results (Last 24 hours): 01/19/24 01/19/24 01/20/24 17:21 20:59 05:37 Glucose 103 H POC Glucose 132 H 131 H 01/20/24 01/20/24 08:20 12:29 Glucose POC Glucose 97 158 H OUTPATIENT ANTIDIABETIC REGIMEN: * Jardiance 10 mg PO Daily * Insulin pump: basal 105 units/day, bolus ~ 60 units/day (TDD = 165 u/day) * HbA1c: 6.9% (10/18/23) ASSESSMENT: 01/19: * Whit received 197 units of insulin yesterday, 140 basal + 57 bolus. BSGs were 300-528-111-131 mg/dL. * SoluMedrol was discontinued after this AM's dose. Tolerating a T2DM diet. Remains on Meropenem and PO Vanc. * Fasting BSG below goal at 97 mg/dL. Given this and steroids discontinuing, will reduce basal dose by ~25% today. * No changes to Novolog. 01/18: * 68yo Female, admitted with hypokalemia, PMH of morbid obesity, chronic right femur fracture (non-operable) with chronic pain, nonambulatory status, tracheostomy dependent, OHS/COPD/chronic respiratory failure, HFpEF (LVEF of 55-60%), cor pulmonale, anxiety, DM2, GERD, CKD4, hypothyroidism, HTN, CAD. * Patient managed on insulin pump, changed to glycemic consult while inpatient for SC insulin, patient on Solu-Medrol 40mg IV Q12H. * NovoLog parameters will need to be loosened as steroids are tapered. PLAN FOR INPATIENT GLYCEMIC CONTROL: * Hold outpatient oral diabetes medications * Basal insulin * Lantus 50-60 units SC BID (50 units for BSG < 180 mg/dL; 60 units for BSG > 180 mg/dL) * Bolus insulin * NovoLog per scale ACHS or Q6hrs while NPO * Goal Range: Low 110 mg/dL - High 140 mg/dL * Correction Factor: 8 mg/dL/unit * Nutritional / Prandial insulin per carb ratio of 1 unit per 1.5 grams CHO consumed
[2024-01-20] MEDS ORDERED: LIDOCAINE 2% JELLY 5 ML TUBE EXT PRN (16:44)
[2024-01-20] MEDS: MEROPENEM 500 MG in SYRINGE 0 ML IV SCH (18:25)
--- NOTE | 2024-01-20 19:38 | Hospitalist Progress Note ---
Date of Service January 20, 2024 Assessment & Plan (1) Acute on chronic respiratory failure with hypoxia and hypercapnia: Plan: acute component 2nd to b/l basilar pneumonia + bronchitis/COPD exacerbation IMPROVED/resolving chronic component 2nd to OHS/RASHAAD, ?COPD o2 has been weaned today to room air (2) Pneumonia: Plan: b/l basilar - as seen on CT chest certainly at risk of gram neg pneumonia no h/o aspiration initially on rocephin, then changed to cefepime for better gram neg coverage then cefepime changed to meropenem as her urine cx grew ESBL e.coli meropenem will provide urine & lung coverage including pseudomonas coverage in the lungs checked MRSA swab - negative; defer on MRSA coverage supportive care sputum culture - pending but remains negative if pseudomonas is not isolated can likely revert back to ertapenem cont saline nebs cont duonebs (3) Acute metabolic encephalopathy: Plan: 2nd to pneumonia 2nd to UTI low sodium could potentially play a role as well altered MS resolved (4) UTI (urinary tract infection): Plan: 2nd ESBL e.coli obtained CT a/p due to prior h/o kidney stones - neg for such day #3 of meropenem which will cover the lungs and cover the ESBL e.coli in urine cont paul hopefully can go back to ertapenem soon which will help with c diff issue (5) Hypokalemia: Plan: ongoing, but slowing improving cont supplementation cut back from TID to BID dosing of K supplement (6) Weakness: Plan: multifactorial - chronic deconditioning, acute illness, electrolyte issues, etc will need PT/OT (7) Tracheostomy present: Plan: chronic for RASHAAD (8) Morbid obesity: Plan: BMI 59-60 (9) Obesity hypoventilation syndrome: Plan: avoid over-oxygenation trach in place (10) Demand ischemia: Plan: scant elevation of HS trop myocardial demand ischemia in setting of pneumonia/UTI/etc (11) GERD (gastroesophageal reflux disease): Plan: cont PPI (12) CHF (congestive heart failure): Plan: right ventricular systolic dysfunction - 2nd to OHS/RASHAAD, etc echo 09/2023 - EF 55-60%, but RV dysfunction noted remains compensated on exam or even modestly dry due to poor PO intake, diarrhea, etc hold AM lasix until her diarrhea has subsided and volume status has returned to normal can cont aldactone and BB (13) Hyponatremia: Plan: 2nd to lasix, poor po intake, diarrhea, etc serial labs hold lasix (14) DVT prophylaxis: Plan: lovenox - should be BID dosing given her body habitus (15) Type 2 diabetes mellitus: Plan: a1c 6.9% in 09/2023 on insulin pump at home with steroids for gout & lungs will asked pharmacy to provide glycemic oversight as BSGs elias with steroids appreciate their assistance (16) Hypothyroidism: Plan: TSH wnl cont synthroid (17) Acute gout: Plan: left mid-foot, left great toe uric acid level 14.1 steroids for #18 will cover this resolved wean steroids give a gout diet handout (18) COPD exacerbation: Plan: IMPROVED no wheezes today stop IV solumedrol change to PO prednisone starting tomorrow (19) C. difficile diarrhea: Plan: although she is cdiff gene+ and her toxin is negative I would still treat this as active CDI profuse diarrhea in the setting of broad-spectrum abx usage, stool is copious with mucous, at high risk of complications, etc further, there is excellent documentation in the literature that the toxin can be falsely negative with active CDI thus, started vancomycin 125mg QID - day #3 of such cont colestipol 1gm BID for stool bulking purposes avoid loperamide rectal tube in place but will stop at her request Plan daughter Daniel extensively updated by phone 2x this week PT, OT when able Admission and Anticipated Discharge Date Admission Date: January 15, 2024 Subjective tele overnight wnl last night her rectal tube was leaking (stool was leaking from around the rectum) the tube had to be repositioned since such she has had severe rectal pain (higher up in rectum, not just the anus) she requests that the tube come out L foot pain is resolved cough resolving sputum production way down no dyspnea eating a little better Review of Systems Review of Systems: gen - no fevers or chills cv - no chest pain pulm - all symptoms improving; no wheezing GI - mild lower abdominal discomfort, nothing upper; no nausea Physical Exam Physical Exam: gen - awake/alert; again looks better today; upset about the rectal tube mouth - MMM neck - no obvious JVD; metal trach in place heart - RRR, s1 s2, no murmur lungs - CTA b/l, no rales or wheeze today abd - soft NT ND BS+; rectal tube in place with liquid stool in collection bag ext - right leg is shorter than left leg, no edema, pulses 2+ b/l musculo - left mid-foot erythema & swelling & tenderness - resolved; left great toe podagra resolved; no tenderness any location psych - a/o x 3 Results & Data Results & Data Vital Signs (Past 12 Hours) Vital Signs Temp Pulse Pulse Resp BP Pulse Ox O2 Del Method 01/20/24 15:34 75 01/20/24 15:25 67 18 98 Trach Collar 01/20/24 15:05 36.7 C 70 17 136/75 96 Trach Collar 01/20/24 11:00 36.7 C 60 16 130/72 96 Trach Collar 01/20/24 10:41 62 18 93 Trach Collar 01/20/24 10:07 Trach Collar O2 Flow Rate FiO2 01/20/24 15:34 01/20/24 15:25 21 01/20/24 15:05 8 01/20/24 11:00 8 01/20/24 10:41 8 28 01/20/24 10:07 8 Laboratory Results Laboratory Results - last 24 hr 01/19/24 01/20/24 01/20/24 20:59 05:37 08:20 Sodium 132 L Potassium 3.9 D Chloride 98 Carbon Dioxide 27 Anion Gap 7 BUN 44 H Creatinine 1.43 H D Est Cr Clr Drug Dosing 57.4 Est GFR ( Amer) 43.8 Est GFR (Non-Af Amer) 37.8 BUN/Creatinine Ratio 30.8 H Glucose 103 H POC Glucose 131 H 97 Calcium 8.6 01/20/24 01/20/24 12:29 17:31 Sodium Potassium Chloride Carbon Dioxide Anion Gap BUN Creatinine Est Cr Clr Drug Dosing Est GFR ( Amer) Est GFR (Non-Af Amer) BUN/Creatinine Ratio Glucose POC Glucose 158 H 118 H Calcium PG Care Time/CCT Total # of Minutes Spent Total Time Spent with Patient: Total time spent is greater than 50% in coordination of care (as documented) at patient's floor/unit and/or counseling patient: Coding Level of Care Code 10739 SUB INP/OBS CARE 2/35MIN Diagnoses Acute on chronic respiratory failure with hypoxia and hypercapnia J96.21; J96.22 Pneumonia J18.9 Acute metabolic encephalopathy G93.41 UTI (urinary tract infection) N39.0 Hypokalemia E87.6 Weakness R53.1 Tracheostomy present Z93.0 Morbid obesity E66.01 Obesity hypoventilation syndrome E66.2 Demand ischemia I24.89 GERD (gastroesophageal reflux disease) K21.9 CHF (congestive heart failure) I50.813 Heart failure chronicity: acute on chronic Heart failure type: right-sided Hyponatremia E87.1 DVT prophylaxis Z29.9 Type 2 diabetes mellitus E11.9 Hypothyroidism E03.9 Acute gout M10.9 COPD exacerbation J44.1 C. difficile diarrhea A04.72 (12) CHF (congestive heart failure) Heart failure chronicity: acute on chronic Heart failure type: right-sided Qualified Code(s): I50.813 - Acute on chronic right heart failure
[2024-01-21 08:31] LABS: BUN Creatinine Ratio 28.5 (10-20); Calcium 8.6 mg/dl (8.6-10.3); Creatinine Clr Calc Pharmacy 65.8 ml/min; Est GFR (African American) 52.6 ml/min; Est GFR (Non-African American) 45.4 ml/min; Potassium 3.9 mmol/L (3.5-5.1)
[2024-01-21] MEDS: ERTAPENEM SODIUM 1,000 MG in SYRINGE 0 ML IV SCH (10:24)
[2024-01-21] MEDS: predniSONE 10 MG TABLET PO SCH (11:19)
[2024-01-21] MEDS: ENOXAPARIN INJ 40 MG/0.4 ML SYR SQ SCH (20:27)
[2024-01-22] MEDS: predniSONE 20 MG TAB PO SCH (08:06)
[2024-01-22 08:54] LABS: BUN Creatinine Ratio 24.1 (10-20); Calcium 8.7 mg/dl (8.6-10.3); Creatinine Clr Calc Pharmacy 70.9 ml/min; Est GFR (African American) 56.4 ml/min; Est GFR (Non-African American) 48.7 ml/min; Magnesium 2.1 mg/dl (1.7-2.4); Potassium 4.8 mmol/L (3.5-5.1)
--- NOTE | 2024-01-22 10:38 | Hospitalist Progress Note ---
Date of Service January 21, 2024 Assessment & Plan (1) Acute on chronic respiratory failure with hypoxia and hypercapnia: Plan: acute component 2nd to b/l basilar pneumonia + bronchitis/COPD exacerbation acute component resolved chronic component 2nd to OHS/RASHAAD, ?COPD o2 has been weaned to room air (2) Pneumonia: Plan: b/l basilar - as seen on CT chest certainly at risk of gram neg pneumonia no h/o aspiration initially on rocephin, then changed to cefepime for better gram neg coverage then cefepime changed to meropenem as her urine cx grew ESBL e.coli meropenem will provide urine & lung coverage including pseudomonas coverage in the lungs checked MRSA swab - negative; defer on MRSA coverage supportive care sputum culture - negative pseudomonas not isolated -- low suspicion for such -- thus, can revert back to ertapenem cont saline nebs cont duonebs (3) Acute metabolic encephalopathy: Plan: 2nd to pneumonia 2nd to UTI low sodium could potentially play a role as well altered MS resolved (4) UTI (urinary tract infection): Plan: 2nd ESBL e.coli obtained CT a/p due to prior h/o kidney stones - neg for such day #4 meropenem can revert back to ertapenem for rest of course (5) Hypokalemia: Plan: improving cont supplementation BMP am (6) Weakness: Plan: multifactorial - chronic deconditioning, acute illness, electrolyte issues, etc needs PT/OT (7) Tracheostomy present: Plan: chronic for RASHAAD (8) Morbid obesity: Plan: BMI 59-60 (9) Obesity hypoventilation syndrome: Plan: avoid over-oxygenation trach in place (10) Demand ischemia: Plan: scant elevation of HS trop myocardial demand ischemia in setting of pneumonia/UTI/etc (11) GERD (gastroesophageal reflux disease): Plan: cont PPI (12) CHF (congestive heart failure): Plan: right ventricular systolic dysfunction - 2nd to OHS/RASHAAD, etc echo 09/2023 - EF 55-60%, but RV dysfunction noted remains compensated on exam hold AM lasix again can cont aldactone and BB (13) Hyponatremia: Plan: 2nd to lasix, poor po intake, diarrhea, etc serial labs hold lasix (14) DVT prophylaxis: Plan: lovenox BID (15) Type 2 diabetes mellitus: Plan: a1c 6.9% in 09/2023 on insulin pump at home with steroids for gout & lungs will asked pharmacy to provide glycemic oversight as BSGs elias with steroids appreciate their assistance (16) Hypothyroidism: Plan: TSH wnl cont synthroid (17) Acute gout: Plan: left mid-foot, left great toe uric acid level 14.1 steroids for #18 will cover this resolved wean steroids - prednisone 30mg today, then 20mg tomorrow, etc give a gout diet handout (18) COPD exacerbation: Plan: IMPROVED/resolved no wheezes today stop IV solumedrol change to PO prednisone today (19) C. difficile diarrhea: Plan: although she is cdiff gene+ and her toxin is negative I would still treat this as active CDI profuse diarrhea in the setting of broad-spectrum abx usage, stool is copious with mucous, at high risk of complications, etc further, there is excellent documentation in the literature that the toxin can be falsely negative with active CDI thus, started vancomycin 125mg QID - day #4 of such cont colestipol 1gm BID for stool bulking purposes avoid loperamide rectal tube has been removed advance diet back to low fiber Plan daughter Daniel extensively updated by phone 2x this week PT, OT when able improving nicely Admission and Anticipated Discharge Date Admission Date: January 15, 2024 Subjective patient feeling MUCH better cough nearly resolved diarrhea improving - less frequent, trying to firm up abd pain resolved appetite is back no dyspnea energy better tele overnight wnl Review of Systems Review of Systems: gen - no fevers or chills cv - no chest pain, no PND GI - no N/V ; rectal tube removed and she is MUCH improved and no rectal pain today Physical Exam Physical Exam: gen - awake/alert; looks good today mouth - MMM neck - no obvious JVD; metal trach in place heart - RRR, s1 s2, no murmur lungs - CTA b/l, no rales or wheeze today, decreased BS bases abd - soft NT ND BS+ ext - right leg is shorter than left leg (chronic), no edema, pulses 2+ b/l musculo - left mid-foot erythema & swelling & tenderness - fully resolved psych - a/o x 3 Results & Data Results & Data Vital Signs (Past 12 Hours) Vital Signs Temp Pulse Pulse Resp BP Pulse Ox O2 Del Method 01/21/24 14:52 36.6 C 70 18 128/65 95 Trach Collar 01/21/24 11:38 36.4 C L 72 18 123/71 94 Room Air 01/21/24 11:05 69 18 96 Room Air Laboratory Results Laboratory Results 01/20/24 01/20/24 01/20/24 12:29 17:31 20:43 Sodium Potassium Chloride Carbon Dioxide Anion Gap BUN Creatinine Est Cr Clr Drug Dosing Est GFR ( Amer) Est GFR (Non-Af Amer) BUN/Creatinine Ratio Glucose POC Glucose 158 H 118 H 72 Calcium Magnesium 01/21/24 01/21/24 01/21/24 07:45 08:01 11:57 Sodium 133 L Potassium 3.9 Chloride 101 Carbon Dioxide 27 Anion Gap 5 BUN 35 H Creatinine 1.23 H Est Cr Clr Drug Dosing 65.8 Est GFR ( Amer) 52.6 Est GFR (Non-Af Amer) 45.4 BUN/Creatinine Ratio 28.5 H Glucose 65 L POC Glucose 72 111 H Calcium 8.6 Magnesium 01/21/24 16:53 Sodium Potassium Chloride Carbon Dioxide Anion Gap BUN Creatinine Est Cr Clr Drug Dosing Est GFR ( Amer) Est GFR (Non-Af Amer) BUN/Creatinine Ratio Glucose POC Glucose 88 Calcium Magnesium PG Care Time/CCT Total # of Minutes Spent Total Time Spent with Patient: Total time spent is greater than 50% in coordination of care (as documented) at patient's floor/unit and/or counseling patient: Coding Level of Care Code 06868 SUB INP/OBS CARE 3/50MIN Diagnoses Acute on chronic respiratory failure with hypoxia and hypercapnia J96.21; J96.22 Pneumonia J18.9 Acute metabolic encephalopathy G93.41 UTI (urinary tract infection) N39.0 Hypokalemia E87.6 Weakness R53.1 Tracheostomy present Z93.0 Morbid obesity E66.01 Obesity hypoventilation syndrome E66.2 Demand ischemia I24.89 GERD (gastroesophageal reflux disease) K21.9 CHF (congestive heart failure) I50.813 Heart failure chronicity: acute on chronic Heart failure type: right-sided Hyponatremia E87.1 DVT prophylaxis Z29.9 Type 2 diabetes mellitus E11.9 Hypothyroidism E03.9 Acute gout M10.9 COPD exacerbation J44.1 C. difficile diarrhea A04.72 (12) CHF (congestive heart failure) Heart failure chronicity: acute on chronic Heart failure type: right-sided Qualified Code(s): I50.813 - Acute on chronic right heart failure
[2024-01-22] MEDS: oxyCODONE HCL IR 5 MG TAB (IMMEDIATE RELEASE) PO PRN (14:11)
--- NOTE | 2024-01-22 17:51 | Ultrasound Report ---
BILATERAL LOWER EXTREMITY VENOUS DOPPLER HISTORY: Acute pain and swelling of the lower legs bed-bound status, b/l leg pains; eval DVT COMPARISON STUDY: None. FINDINGS: Exam secondary to patient body habitus. Several venous structures are not well visualized. There is normal compressibility, flow, and augmentation within the bilateral lower extremity deep uzair ous systems. IMPRESSION: Limited exam. No DVT within the right or left lower extremity. ACT 112: Negative or not required by law. Electronically signed by: Robbie Henderson M.D. 01/22/2024 5:50 PM
--- NOTE | 2024-01-22 19:58 | Hospitalist Progress Note ---
Date of Service January 22, 2024 Assessment & Plan (1) Acute on chronic respiratory failure with hypoxia and hypercapnia: Plan: acute component 2nd to b/l basilar pneumonia + bronchitis/COPD exacerbation acute component resolved chronic component 2nd to OHS/RASHAAD, ?COPD o2 has been weaned to room air (2) Pneumonia: Plan: b/l basilar - as seen on CT chest certainly at risk of gram neg pneumonia no h/o aspiration initially on rocephin, then changed to cefepime, then meropenem has had 7+ days of IV abx for the lungs any abx moving forward will be for the urine (see below) cont likely make her saline nebs and duonebs prn at this point (3) Acute metabolic encephalopathy: Plan: 2nd to pneumonia 2nd to UTI low sodium could have potentially played a role as well altered MS resolved (4) UTI (urinary tract infection): Plan: 2nd ESBL e.coli obtained CT a/p due to prior h/o kidney stones - neg for such day #5 ertapenem/meropenem 2 more days of ertapenem then stop all abx (5) Hypokalemia: Plan: resolved hold supplementation while lasix is on hold BMP am (6) Weakness: Plan: multifactorial - chronic deconditioning, acute illness, electrolyte issues, etc needs PT/OT (7) Tracheostomy present: Plan: chronic for RASHAAD (8) Morbid obesity: Plan: BMI 59-60 (9) Obesity hypoventilation syndrome: Plan: avoid over-oxygenation trach in place (10) Demand ischemia: Plan: scant elevation of HS trop myocardial demand ischemia in setting of pneumonia/UTI/etc (11) GERD (gastroesophageal reflux disease): Plan: cont PPI (12) CHF (congestive heart failure): Plan: right ventricular systolic dysfunction - 2nd to OHS/RASHAAD, etc echo 09/2023 - EF 55-60%, but RV dysfunction noted remains compensated on exam hold AM lasix again can cont aldactone and BB (13) Hyponatremia: Plan: 2nd to lasix, poor po intake, diarrhea, etc serial labs hold lasix improving (14) DVT prophylaxis: Plan: lovenox BID (15) Type 2 diabetes mellitus: Plan: a1c 6.9% in 09/2023 on insulin pump at home with steroids for gout & lungs will asked pharmacy to provide glycemic oversight as BSGs elias with steroids appreciate their assistance (16) Hypothyroidism: Plan: TSH wnl cont synthroid (17) Acute gout: Plan: left mid-foot, left great toe uric acid level 14.1 steroids for #18 will cover this resolved wean steroids - prednisone 20mg today, then 10mg tomorrow, etc give a gout diet handout (18) COPD exacerbation: Plan: IMPROVED/resolved finish prednisone taper (19) C. difficile diarrhea: Plan: although she is cdiff gene+ and her toxin is negative I would still treat this as active CDI profuse diarrhea in the setting of broad-spectrum abx usage, stool is copious with mucous, at high risk of complications, etc further, there is excellent documentation in the literature that the toxin can be falsely negative with active CDI thus, started vancomycin 125mg QID - day #5 of such cont colestipol 1gm BID for stool bulking purposes avoid loperamide rectal tube has been removed tolerating low fiber diet Plan daughter Daniel extensively updated by phone 2x this past week update her tomorrow PT, OT when able improving nicely b/l leg pain/myalgias --> check dopplers, r/o DVT; if negative then check B12, CPK, and Fe studies Admission and Anticipated Discharge Date Admission Date: January 15, 2024 Subjective tele overnight wnl feeling much better in comparison to admission eating well diarrhea much improved; starting to form, and frequency is down significantly no abd pain or N/V mild cough - no significant sputum only complaint is that of b/l leg pains "achy" myalgia-like started this am feels different than her usual R sided distal leg pain due to chronic femur fracture Review of Systems Review of Systems: gen - no fevers pulm - purulent sputum resolved cv - no chest pain Physical Exam Physical Exam: gen - awake/alert; looks very good today mouth - MMM neck - no obvious JVD; metal trach in place heart - RRR, s1 s2, no murmur lungs - CTA b/l; scant scattered wheeze b/l; no rales abd - soft NT ND BS+ ext - right leg is shorter than left leg (chronic), no edema, pulses 2+ b/l; no palpable cords; no areas of cellulitis or other abnormality musculo - left mid-foot erythema & swelling & tenderness - fully resolved psych - a/o x 3 Results & Data Results & Data Vital Signs (Past 12 Hours) Vital Signs Temp Pulse Resp BP Pulse Ox O2 Del Method 01/22/24 19:38 Room Air 01/22/24 19:28 36.7 C 72 16 134/70 94 Room Air 01/22/24 15:46 36.5 C 77 18 138/69 95 Room Air 01/22/24 15:31 71 18 95 Room Air 01/22/24 11:06 37.0 C 62 18 129/72 98 Other 01/22/24 11:02 68 18 94 Room Air 01/22/24 08:14 Room Air Laboratory Results Laboratory Results - last 24 hr 01/22/24 01/22/24 01/22/24 08:04 08:07 12:18 Sodium 131 L Potassium 4.8 D Chloride 101 Carbon Dioxide 27 Anion Gap 3 BUN 28 H Creatinine 1.16 Est Cr Clr Drug Dosing 70.9 Est GFR ( Amer) 56.4 Est GFR (Non-Af Amer) 48.7 BUN/Creatinine Ratio 24.1 H Glucose 90 POC Glucose 110 H 162 H Calcium 8.7 Magnesium 2.1 01/22/24 17:18 Sodium Potassium Chloride Carbon Dioxide Anion Gap BUN Creatinine Est Cr Clr Drug Dosing Est GFR ( Amer) Est GFR (Non-Af Amer) BUN/Creatinine Ratio Glucose POC Glucose 173 H Calcium Magnesium PG Care Time/CCT Total # of Minutes Spent Total Time Spent with Patient: Total time spent is greater than 50% in coordination of care (as documented) at patient's floor/unit and/or counseling patient: Coding Level of Care Code 92239 SUB INP/OBS CARE 3/50MIN Diagnoses Acute on chronic respiratory failure with hypoxia and hypercapnia J96.21; J96.22 Pneumonia J18.9 Acute metabolic encephalopathy G93.41 UTI (urinary tract infection) N39.0 Hypokalemia E87.6 Weakness R53.1 Tracheostomy present Z93.0 Morbid obesity E66.01 Obesity hypoventilation syndrome E66.2 Demand ischemia I24.89 GERD (gastroesophageal reflux disease) K21.9 CHF (congestive heart failure) I50.813 Heart failure chronicity: acute on chronic Heart failure type: right-sided Hyponatremia E87.1 DVT prophylaxis Z29.9 Type 2 diabetes mellitus E11.9 Hypothyroidism E03.9 Acute gout M10.9 COPD exacerbation J44.1 C. difficile diarrhea A04.72 (12) CHF (congestive heart failure) Heart failure chronicity: acute on chronic Heart failure type: right-sided Qualified Code(s): I50.813 - Acute on chronic right heart failure
[2024-01-23 06:48] LABS: BUN Creatinine Ratio 23.1 (10-20); Calcium 8.4 mg/dl (8.6-10.3); Creatinine Clr Calc Pharmacy 63.6 ml/min; Est GFR (African American) 49.2 ml/min; Est GFR (Non-African American) 42.4 ml/min; Potassium 4.8 mmol/L (3.5-5.1)
[2024-01-23 07:07] LABS: Ferritin 39.9 ng/ml (8-388)
[2024-01-23] MEDS ORDERED: SODIUM CHLOR 7% 4 ML NEB NEB PRN (10:48)
--- NOTE | 2024-01-23 12:31 | Pharmacy Report ---
Pharmacy Glycemic Short Note 2 - Date of Service January 23, 2024 - Glycemic Short BSG Results (Last 24 hours): 01/22/24 01/22/24 01/22/24 12:18 17:18 20:04 Glucose POC Glucose 162 H 173 H 157 H 01/23/24 06:11 Glucose 126 H POC Glucose OUTPATIENT ANTIDIABETIC REGIMEN: * Jardiance 10 mg PO Daily * Insulin pump: basal 105 units/day, bolus ~ 60 units/day (TDD = 165 u/day) * HbA1c: 6.9% (10/18/23) ASSESSMENT: 01/21: * Whit received 105 units of insulin yesterday (56 were basal) * Fasting BSG this AM within goal range, prednisone taper started after IV steroids were discontinued. Basal insulin reduced 10% incrementally with prednisone decreases. Continue this regimen. Prednisone tapering from 20mg to 10mg starting tomorrow. Will decrease basal insulin by 10% with steroid reduction * BSGs acceptable yesterday, Continue current Novolog parameters. 01/19: * Whit received 197 units of insulin yesterday, 140 basal + 57 bolus. BSGs were [phone] mg/dL. * SoluMedrol was discontinued after this AM's dose. Tolerating a T2DM diet. Remains on Meropenem and PO Vanc. * Fasting BSG below goal at 97 mg/dL. Given this and steroids discontinuing, will reduce basal dose by ~25% today. * No changes to Novolog. 01/18: * 68yo Female, admitted with hypokalemia, PMH of morbid obesity, chronic right femur fracture (non-operable) with chronic pain, nonambulatory status, tracheostomy dependent, OHS/COPD/chronic respiratory failure, HFpEF (LVEF of 55-60%), cor pulmonale, anxiety, DM2, GERD, CKD4, hypothyroidism, HTN, CAD. * Patient managed on insulin pump, changed to glycemic consult while inpatient for SC insulin, patient on Solu-Medrol 40mg IV Q12H. * NovoLog parameters will need to be loosened as steroids are tapered. PLAN FOR INPATIENT GLYCEMIC CONTROL: * Hold outpatient oral diabetes medications * Basal insulin * Lantus 38-45 units SC BID (38 units for BSG < 180 mg/dL; 45 units for BSG > 180 mg/dL) * Lantus 34-40 units SC BID starting tomorrow AM with prednisone decrease * Bolus insulin * NovoLog per scale ACHS or Q6hrs while NPO * Goal Range: Low 110 mg/dL - High 140 mg/dL * Correction Factor: 12 mg/dL/unit * Nutritional / Prandial insulin per carb ratio of 1 unit per 4 grams CHO consumed
--- NOTE | 2024-01-23 19:15 | Hospitalist Progress Note ---
Date of Service January 23, 2024 Assessment & Plan (1) Acute on chronic respiratory failure with hypoxia and hypercapnia: Plan: acute component 2nd to b/l basilar pneumonia + bronchitis/COPD exacerbation - both resolved; O2 weaned off, now in room air chronic component 2nd to OHS/RASHAAD, ?COPD (2) Pneumonia: Plan: b/l basilar - as seen on CT chest initially on rocephin, then changed to cefepime, then meropenem completed 7+ days of IV abx for the lungs saline nebs made prn cont scheduled duonebs at her request (3) Acute metabolic encephalopathy: Plan: 2nd to pneumonia 2nd to UTI altered MS resolved she is at baseline (4) UTI (urinary tract infection): Plan: 2nd ESBL e.coli obtained CT a/p due to prior h/o kidney stones - neg for any obstructing stone day #6 ertapenem/meropenem complete 1 more day of ertapenem on 01/23 then stop all abx (5) Hypokalemia: Plan: resolved hold supplementation while lasix is on hold BMP am (6) Weakness: Plan: multifactorial - chronic deconditioning, acute illness, electrolyte issues, etc needs PT/OT to ensure she is close to baseline (able to do transfers from bed to chair, etc) (7) Tracheostomy present: Plan: chronic for RASHAAD (8) Morbid obesity: Plan: BMI ~60 (9) Obesity hypoventilation syndrome: Plan: trach in place no longer requiring supplemental O2 (10) Demand ischemia: Plan: scant elevation of HS trop earlier this stay likely was myocardial demand ischemia in setting of pneumonia/UTI/etc (11) GERD (gastroesophageal reflux disease): Plan: cont PPI (12) CHF (congestive heart failure): Plan: right ventricular systolic dysfunction - 2nd to OHS/RASHAAD, etc echo 09/2023 - EF 55-60%, but RV dysfunction noted remains compensated on exam cont aldactone and BB lasix was on hold due to severe diarrhea from c. diff can likely resume lasix tomorrow or the next day when lasix is resumed will need to resume her usual K supplementation of 20meq BID (13) Hyponatremia: Plan: 2nd to lasix, poor po intake, diarrhea, etc improving lowest Na level was 130 now 133 today bmp am (14) DVT prophylaxis: Plan: lovenox 40mg BID dopplers b/l LEs neg for DVT (15) Type 2 diabetes mellitus: Plan: a1c 6.9% in 09/2023 on insulin pump at home pharmacy team providing glycemic oversight appreciate their assistance currently on SC basal-bolus insulin can likely revert back to her insulin pump soon (16) Hypothyroidism: Plan: TSH wnl cont synthroid (17) Acute gout: Plan: left mid-foot, left great toe resolved with steroids uric acid level 14.1 cont to wean steroids - prednisone 20mg today, then 10mg starting tomorrow for 2 days, then stop steroids provide a gout diet handout (18) COPD exacerbation: Plan: resolved finish prednisone taper (19) C. difficile diarrhea: Plan: although she was cdiff gene+ and her toxin was negative I would still treat this as active CDI she had PROFUSE diarrhea in the setting of broad-spectrum abx usage, stool was mucous filled, and she has been at high risk of complications, etc further, there is excellent documentation in the literature that the toxin can be falsely negative with active CDI thus, cont vancomycin 125mg QID - day #6 of such plan 10-day course cont colestipol 1gm BID for stool bulking purposes avoid loperamide rectal tube has been removed tolerating low fiber diet (20) Iron deficiency: Plan: Restless legs / myalgias likely 2nd to Fe def ferritin is only 39, and transferrin sat is only 12% tomorrow give venofer 300mg IV x 1 Plan susan Sanchez extensively updated by phone this evening 01/23/24 PT, OT when able b/l leg pain/myalgias -->dopplers negative for DVT CPK wnl B12 wnl Fe studies c/w Fe def - provide venofer IV tomorrow dispo - home with caregivers and HH services timing - 2 days? need to ensure she can do transfers Admission and Anticipated Discharge Date Admission Date: January 15, 2024 Subjective tele overnight wnl Ms Connelly continues to feel better each day she wants to get out of bed and sit in a recliner tomorrow cough is at baseline denies any dyspnea no abd pain/nausea/emesis only 2 stools today -- 1 was liquid, other was semi-formed no left foot pain Review of Systems Review of Systems: gen - no fevers or chills cv - no chest pain pulm - no purulent sputum GI - pain resolved - paul remains in place Physical Exam Physical Exam: gen - awake/alert; obese; NAD; lying in bed comfortably mouth - MMM neck - no obvious JVD; metal trach in place heart - RRR, s1 s2, no murmur lungs - CTA b/l; no wheezes or rales abd - soft NT ND BS+ ext - right leg is shorter than left leg (chronic), trace edema b/l; pulses 2+ b/l musculo - no pain, redness, or tenderness of the left foot psych - a/o x 3 Results & Data Results & Data Vital Signs (Past 12 Hours) Vital Signs Temp Pulse Pulse Resp BP Pulse Ox O2 Del Method 01/23/24 16:49 36.8 C 74 16 111/55 L 93 Room Air, Trach Collar 01/23/24 15:00 71 01/23/24 12:12 36.8 C 16 137/73 92 Room Air, Trach Collar 01/23/24 08:31 36.7 C 67 16 125/78 99 Room Air, Trach Collar 01/23/24 08:00 Room Air 01/23/24 07:49 17 94 Trach Collar Laboratory Results Laboratory Results - last 24 hr 01/22/24 01/23/24 01/23/24 20:04 06:11 12:25 Sodium 133 L Potassium 4.8 Chloride 106 Carbon Dioxide 24 Anion Gap 3 BUN 30 H Creatinine 1.30 H Est Cr Clr Drug Dosing 63.6 Est GFR ( Amer) 49.2 Est GFR (Non-Af Amer) 42.4 BUN/Creatinine Ratio 23.1 H Glucose 126 H POC Glucose 157 H 157 H Calcium 8.4 L Iron 32 L TIBC 273 Unsaturated IBC 241 Transferrin % Sat 12 L Ferritin 39.9 Total Creatine Kinase 117 Vitamin B12 671 01/23/24 17:03 Sodium Potassium Chloride Carbon Dioxide Anion Gap BUN Creatinine Est Cr Clr Drug Dosing Est GFR ( Amer) Est GFR (Non-Af Amer) BUN/Creatinine Ratio Glucose POC Glucose 247 H Calcium Iron TIBC Unsaturated IBC Transferrin % Sat Ferritin Total Creatine Kinase Vitamin B12 Diagnostic Findings Venous Doppler Study 01/22/24 13:54 BILATERAL LOWER EXTREMITY VENOUS DOPPLER HISTORY: Acute pain and swelling of the lower legs bed-bound status, b/l leg pains; eval DVT COMPARISON STUDY: None. FINDINGS: Exam secondary to patient body habitus. Several venous structures are not well visualized. There is normal compressibility, flow, and augmentation within the bilateral lower extremity deep venous systems. IMPRESSION: Limited exam. No DVT within the right or left lower extremity. ACT 112: Negative or not required by law. Electronically signed by: Robbie Henderson M.D. 01/22/2024 5:50 PM PG Care Time/CCT Total # of Minutes Spent Total Time Spent with Patient: Total time spent is greater than 50% in coordination of care (as documented) at patient's floor/unit and/or counseling patient: Coding Level of Care Code 79894 SUB INP/OBS CARE 350MIN Diagnoses Acute on chronic respiratory failure with hypoxia and hypercapnia J96.21; J96.22 Pneumonia J18.9 Acute metabolic encephalopathy G93.41 UTI (urinary tract infection) N39.0 Hypokalemia E87.6 Weakness R53.1 Tracheostomy present Z93.0 Morbid obesity E66.01 Obesity hypoventilation syndrome E66.2 Demand ischemia I24.89 GERD (gastroesophageal reflux disease) K21.9 CHF (congestive heart failure) I50.813 Heart failure chronicity: acute on chronic Heart failure type: right-sided Hyponatremia E87.1 DVT prophylaxis Z29.9 Type 2 diabetes mellitus E11.9 Hypothyroidism E03.9 Acute gout M10.9 COPD exacerbation J44.1 C. difficile diarrhea A04.72 Iron deficiency E61.1 (12) CHF (congestive heart failure) Heart failure chronicity: acute on chronic Heart failure type: right-sided Qualified Code(s): I50.813 - Acute on chronic right heart failure
[2024-01-24] MEDS: IRON SUCROSE 300 MG in SODIUM CHLORIDE 0.9% 250 ML IV ONE (07:54)
[2024-01-24] MEDS: predniSONE 10 MG TABLET PO SCH (07:56)
[2024-01-24 08:06] LABS: BUN Creatinine Ratio 25.2 (10-20); Calcium 8.5 mg/dl (8.6-10.3); Creatinine Clr Calc Pharmacy 74.6 ml/min; Est GFR (African American) 59.5 ml/min; Est GFR (Non-African American) 51.3 ml/min; Potassium 4.6 mmol/L (3.5-5.1)
[2024-01-24] MEDS ORDERED: IRON SUCROSE 300 MG in SODIUM CHLORIDE 0.9% 250 ML IV ONE (10:30)
--- NOTE | 2024-01-24 12:42 | Hospitalist Progress Note ---
Date of Service January 24, 2024 Assessment & Plan (1) Acute on chronic respiratory failure with hypoxia and hypercapnia: Plan: She appears to be back to baseline. She is now on room air (2) Pneumonia: Plan: Bibasilar. She was initially on Rocephin then switched to cefepime and then completed her course of meropenem therapy. Resolved heduled duonebs at her request (3) Acute metabolic encephalopathy: Plan: Resolved (4) UTI (urinary tract infection): Plan: 2nd ESBL e.coli . She has completed her antibiotic course. (5) Hypokalemia: Plan: Corrected. Serial labs (6) Weakness: Plan: multifactorial - chronic deconditioning, acute illness, electrolyte issues, etc . Continue OT and PT while hospitalized (7) Tracheostomy present: Plan: chronic. Initially placed for obesity hypoventilation syndrome and RASHAAD (8) Morbid obesity: Plan: BMI ~60. Significant weight loss recommended (9) Obesity hypoventilation syndrome: Plan: Permanent tracheostomy in place. Significant weight loss recommended (10) Demand ischemia: Plan: No acute EKG changes. No chest pain. (11) CHF (congestive heart failure): Plan: Diastolic. Stable. Monitor intake and output. Continue current medical management . Lasix was restarted today, January 23 (12) Hyponatremia: Plan: Mild. Asymptomatic. Multifactorial. Serial labs (13) DVT prophylaxis: Plan: lovenox 40mg BID . dopplers b/l LEs neg for DVT (14) Type 2 diabetes mellitus: Plan: a1c 6.9% in 09/2023 . On insulin pump at home. ADA diet. Pharmacy team providing glycemic oversight. (15) Acute gout: Plan: left mid-foot, left great toe . Resolved with prednisone therapy. Currently on a tapering dose of oral prednisone. (16) COPD exacerbation: Plan: resolved . Finish prednisone taper (17) C. difficile diarrhea: Plan: Currently receiving vancomycin orally, day 7 of 10. Improved. (18) Iron deficiency: Plan: Parenteral iron replacement ordered. Plan Anticipate discharge to home without Payne catheter when she is able to transfer independently. Hopefully yet this week. Admission and Anticipated Discharge Date Admission Date: January 15, 2024 Subjective Alert and oriented. No distress. She appears to be back to her baseline. She is aware that the Payne catheter needs to come out before discharge. Lasix has been restarted. She has completed her course of meropenem. She received parenteral iron again today, January 23. She is continuing to work with physical therapy so she can transfer independently at which time she will be discharged back to her home. Review of Systems 2 Review of Systems: Constitutional-no fever or chills ENT-no blurred vision, no double vision, no epistaxis, no sore throat Respiratory-no cough, no wheezing, no shortness of breath Cardiac-no palpitations, no chest pain, no syncope GI-no nausea, vomiting, diarrhea, melena, hematochezia -no urinary retention, no urinary incontinence, no dysuria, no hematuria Musculoskeletal-no joint pain, no muscle tenderness Skin-no bruising, no rashes, no pruritus Neuro-no isolated weakness, no paresthesia, no weakness Psych-no depression, no anxiety Physical Exam 2 Physical Exam: General-alert and oriented x3, no fever, no chills. Morbidly obese HEENT-head atraumatic and normocephalic, pupils equal and reactive to light, extraocular muscles intact. Permanent tracheostomy in place Neck-no lymphadenopathy or thyromegaly, trachea midline Chest-clear to auscultation. No rales, wheezing or rhonchi Cardiac-regular rate and rhythm, normal S1 and S2, no murmurs Abdomen-normal bowel sounds, nontender, no hepatosplenomegaly GUFoley catheter in place. No hematuria Extremities-chronic lower extremity peripheral edema due to chronic venous insufficiency and morbid obesity Neuro-cranial nerves II through XII intact, motor and sensory function within normal limits, strength symmetrical, no focal deficits Psych-normal affect, normal mood Results & Data Results & Data Vital Signs (Past 12 Hours) Vital Signs Temp Pulse Pulse Resp BP Pulse Ox O2 Del Method 01/24/24 10:57 22 Room Air 01/24/24 07:53 36.4 C L 63 20 116/72 95 01/24/24 07:30 Room Air 01/24/24 07:19 60 18 95 Room Air 01/24/24 07:00 66 01/24/24 04:08 36.5 C 61 18 131/60 95 Room Air, Trach Collar Laboratory Results 01/19/24 04:34 01/24/24 07:21 PG Care Time/CCT Total # of Minutes Spent Total Time Spent with Patient: Total time spent is greater than 50% in coordination of care (as documented) at patient's floor/unit and/or counseling patient: Coding Level of Care Code 71489 SUB INP/OBS CARE 3/50MIN Diagnoses Acute on chronic respiratory failure with hypoxia and hypercapnia J96.21; J96.22 Pneumonia J18.9 Acute metabolic encephalopathy G93.41 UTI (urinary tract infection) N39.0 Hypokalemia E87.6 Weakness R53.1 Tracheostomy present Z93.0 Morbid obesity E66.01 Obesity hypoventilation syndrome E66.2 Demand ischemia I24.89 CHF (congestive heart failure) I50.813 Heart failure chronicity: acute on chronic Heart failure type: right-sided Hyponatremia E87.1 DVT prophylaxis Z29.9 Type 2 diabetes mellitus E11.9 Acute gout M10.9 COPD exacerbation J44.1 C. difficile diarrhea A04.72 Iron deficiency E61.1 (11) CHF (congestive heart failure) Heart failure chronicity: acute on chronic Heart failure type: right-sided Qualified Code(s): I50.813 - Acute on chronic right heart failure
[2024-01-25] MEDS ORDERED: NALOXONE NASAL SPRAY 4 MG ER HOMEPACK PRN (09:20)
[2024-01-25] MEDS ORDERED: NITROGLYCERIN SL 0.4 MG/TAB TAB SL PRN (09:20)
[2024-01-25] MEDS ORDERED: NALOXONE HCL 0.4 MG/1 ML VIAL/CARP IV PRN (09:26)
[2024-01-25] MEDS ORDERED: LANTUS PER UNIT CHARGE SC ONE (12:15)
--- NOTE | 2024-01-25 13:25 | Pharmacy Report ---
Pharmacy Glycemic Short Note 2 - Date of Service January 25, 2024 - Glycemic Short BSG Results (Last 24 hours): 01/24/24 01/24/24 01/25/24 17:11 20:17 08:07 POC Glucose 180 H 118 H 84 01/25/24 11:56 POC Glucose 157 H OUTPATIENT ANTIDIABETIC REGIMEN: * Jardiance 10 mg PO Daily * Insulin pump: basal 105 units/day, bolus ~ 60 units/day (TDD = 165 u/day) * HbA1c: 6.9% (10/18/23) ASSESSMENT: 01/24 * Whit received 79 units of insulin yesterday (30 were basal) * Fasting BSG this AM below goal range, basal needs have no clear pattern, will give yesterday's regimen and allow for up to 40% increase based on bedtime BSG * Prednisone was reduced to 10mg PO daily, she continues on PO vancomycin and IV Invanz * No change to Novolog 01/22: * Whit received 105 units of insulin yesterday (56 were basal) * Fasting BSG this AM within goal range, prednisone taper started after IV steroids were discontinued. Basal insulin reduced 10% incrementally with prednisone decreases. Continue this regimen. Prednisone tapering from 20mg to 10mg starting tomorrow. Will decrease basal insulin by 10% with steroid reduction * BSGs acceptable yesterday, Continue current Novolog parameters. 01/19: * Whit received 197 units of insulin yesterday, 140 basal + 57 bolus. BSGs were [phone] mg/dL. * SoluMedrol was discontinued after this AM's dose. Tolerating a T2DM diet. Remains on Meropenem and PO Vanc. * Fasting BSG below goal at 97 mg/dL. Given this and steroids discontinuing, will reduce basal dose by ~25% today. * No changes to Novolog. 01/18: * 68yo Female, admitted with hypokalemia, PMH of morbid obesity, chronic right femur fracture (non-operable) with chronic pain, nonambulatory status, tracheostomy dependent, OHS/COPD/chronic respiratory failure, HFpEF (LVEF of 55-60%), cor pulmonale, anxiety, DM2, GERD, CKD4, hypothyroidism, HTN, CAD. * Patient managed on insulin pump, changed to glycemic consult while inpatient for SC insulin, patient on Solu-Medrol 40mg IV Q12H. * NovoLog parameters will need to be loosened as steroids are tapered. PLAN FOR INPATIENT GLYCEMIC CONTROL: * Hold outpatient oral diabetes medications * Basal insulin * Lantus 30 units SC daily * Lantus 0-20 units SQ HS (see eMAR for additional details) * Bolus insulin * NovoLog per scale ACHS or Q6hrs while NPO * Goal Range: Low 110 mg/dL - High 140 mg/dL * Correction Factor: 12 mg/dL/unit * Nutritional / Prandial insulin per carb ratio of 1 unit per 4 grams CHO consumed
--- NOTE | 2024-01-25 14:49 | Hospitalist Progress Note ---
Date of Service January 25, 2024 Assessment & Plan (1) Acute on chronic respiratory failure with hypoxia and hypercapnia: Plan: She appears to be back to baseline. She is now on room air (2) Pneumonia: Plan: Bibasilar. She was initially on Rocephin then switched to cefepime and then completed her course of meropenem therapy. Resolved (3) Acute metabolic encephalopathy: Plan: Resolved (4) UTI (urinary tract infection): Plan: 2nd ESBL e.coli . She has completed her antibiotic course. (5) Hypokalemia: Plan: Corrected. Serial labs (6) Weakness: Plan: multifactorial - chronic deconditioning, acute illness, electrolyte issues, etc . Continue OT and PT while hospitalized (7) Tracheostomy present: Plan: chronic. Initially placed for obesity hypoventilation syndrome and RASHAAD (8) Morbid obesity: Plan: BMI ~60. Significant weight loss recommended (9) Obesity hypoventilation syndrome: Plan: Permanent tracheostomy in place. Significant weight loss recommended (10) Demand ischemia: Plan: No acute EKG changes. No chest pain. (11) CHF (congestive heart failure): Plan: Diastolic. Stable. Monitor intake and output. Continue current medical management . Lasix was restarted on January 23 (12) Hyponatremia: Plan: Mild. Asymptomatic. Multifactorial. Serial labs (13) DVT prophylaxis: Plan: lovenox 40mg BID . dopplers b/l LEs neg for DVT (14) Type 2 diabetes mellitus: Plan: a1c 6.9% in 09/2023 . On insulin pump at home. ADA diet. (15) Acute gout: Plan: left mid-foot, left great toe . Resolved with prednisone therapy. Currently on a tapering dose of oral prednisone. (16) COPD exacerbation: Plan: resolved . Finish prednisone taper (17) C. difficile diarrhea: Plan: Currently receiving vancomycin orally, day 8 of 10. Improved. (18) Iron deficiency: Plan: Parenteral iron replacement completed Plan Anticipate discharge to home without Payne catheter when she is able to transfer independently. Admission and Anticipated Discharge Date Admission Date: January 15, 2024 Subjective Alert and oriented. Pleasant. Telemetry has been discontinued and she has been transferred to a different room. She remains on room air. Fasting morning glucose is 84. She is on room air. Continue physical therapy until she is able to make transfers by herself at which point she can go home. Payne catheter will be removed before discharge Review of Systems 2 Review of Systems: Constitutional-no fever or chills ENT-no blurred vision, no double vision, no epistaxis, no sore throat Respiratory-no cough, no wheezing, no shortness of breath Cardiac-no palpitations, no chest pain, no syncope GI-no nausea, vomiting, diarrhea, melena, hematochezia -no urinary retention, no urinary incontinence, no dysuria, no hematuria Musculoskeletal-no joint pain, no muscle tenderness Skin-no bruising, no rashes, no pruritus Neuro-no isolated weakness, no paresthesia, no weakness Psych-no depression, no anxiety Physical Exam 2 Physical Exam: General-alert and oriented x3, no fever, no chills. Morbidly obese HEENT-head atraumatic and normocephalic, pupils equal and reactive to light, extraocular muscles intact. Permanent tracheostomy in place Neck-no lymphadenopathy or thyromegaly, trachea midline Chest-clear to auscultation. No rales, wheezing or rhonchi Cardiac-regular rate and rhythm, normal S1 and S2, no murmurs Abdomen-normal bowel sounds, nontender, no hepatosplenomegaly GUFoley catheter in place. No hematuria Extremities-chronic lower extremity peripheral edema due to chronic venous insufficiency and morbid obesity Neuro-cranial nerves II through XII intact, motor and sensory function within normal limits, strength symmetrical, no focal deficits Psych-normal affect, normal mood Results & Data Results & Data Vital Signs (Past 12 Hours) Vital Signs Temp Pulse Pulse Resp BP Pulse Ox O2 Del Method 01/25/24 12:20 36.9 C 68 18 116/69 94 Room Air 01/25/24 12:03 Room Air 01/25/24 11:51 72 16 97 Room Air 01/25/24 10:15 Room Air 01/25/24 08:00 68 01/25/24 07:40 70 18 95 Room Air 01/25/24 07:19 36.4 C L 82 18 150/71 H 96 Room Air 01/25/24 07:12 36.5 C 70 20 130/74 95 Room Air, Trach Collar 01/25/24 07:00 68 01/25/24 03:51 36.7 C 63 18 143/78 H 96 Room Air, Trach Collar Laboratory Results 01/19/24 04:34 01/24/24 07:21 PG Care Time/CCT Total # of Minutes Spent Total Time Spent with Patient: Total time spent is greater than 50% in coordination of care (as documented) at patient's floor/unit and/or counseling patient: Coding Level of Care Code 87295 SUB INP/OBS CARE 2/35MIN Diagnoses Acute on chronic respiratory failure with hypoxia and hypercapnia J96.21; J96.22 Pneumonia J18.9 Acute metabolic encephalopathy G93.41 UTI (urinary tract infection) N39.0 Hypokalemia E87.6 Weakness R53.1 Tracheostomy present Z93.0 Morbid obesity E66.01 Obesity hypoventilation syndrome E66.2 Demand ischemia I24.89 CHF (congestive heart failure) I50.813 Heart failure chronicity: acute on chronic Heart failure type: right-sided Hyponatremia E87.1 DVT prophylaxis Z29.9 Type 2 diabetes mellitus E11.9 Acute gout M10.9 COPD exacerbation J44.1 C. difficile diarrhea A04.72 Iron deficiency E61.1 (11) CHF (congestive heart failure) Heart failure chronicity: acute on chronic Heart failure type: right-sided Qualified Code(s): I50.813 - Acute on chronic right heart failure
[2024-01-25] MEDS: LANTUS PER UNIT CHARGE SC SCH (21:50)
[2024-01-26] MEDS: LANTUS PER UNIT CHARGE SC SCH ×2 (08:26→21:00)
[2024-01-26] MEDS: ADVANCED PROBIOTIC 625 MG CAPSULE PO SCH (08:27)
[2024-01-26] MEDS: MAGNESIUM OXIDE 400 MG TAB PO SCH (08:27)
[2024-01-26] MEDS ORDERED: INSULIN ASPART PER UNIT CHARGE SQ SCH (09:00)
--- NOTE | 2024-01-26 12:07 | Pharmacy Report ---
Pharmacy Glycemic Short Note 2 - Date of Service January 26, 2024 - Glycemic Short BSG Results (Last 24 hours): 01/25/24 01/25/24 01/26/24 16:31 20:41 07:45 POC Glucose 170 H 140 H 114 H 01/26/24 11:38 POC Glucose 177 H OUTPATIENT ANTIDIABETIC REGIMEN: * Jardiance 10 mg PO Daily * Insulin pump: basal 105 units/day, bolus ~ 60 units/day (TDD = 165 u/day) * HbA1c: 6.9% (10/18/23) ASSESSMENT: 01/25: * BSGs 750-276-275hd/dl the last 24h: received 40units of basal and 37 units of bolus insulin. * Fasting BSG today within goal. Continues on prednisone taper-10mg daily. Continues on PO vanc. Tolerating diet. Other stressors stable. * Lantus 30 units daily again this AM. HS Lantus scale 0 or 10 units depending on BSG as fasting BSGs have been low end of normal (and steroids have since been decreased again). No change to Novolog. 01/24 * Whit received 79 units of insulin yesterday (30 were basal) * Fasting BSG this AM below goal range, basal needs have no clear pattern, will give yesterday's regimen and allow for up to 40% increase based on bedtime BSG * Prednisone was reduced to 10mg PO daily, she continues on PO vancomycin and IV Invanz * No change to Novolog 01/22: * Whit received 105 units of insulin yesterday (56 were basal) * Fasting BSG this AM within goal range, prednisone taper started after IV steroids were discontinued. Basal insulin reduced 10% incrementally with prednisone decreases. Continue this regimen. Prednisone tapering from 20mg to 10mg starting tomorrow. Will decrease basal insulin by 10% with steroid reduction * BSGs acceptable yesterday, Continue current Novolog parameters. 01/19: * Whit received 197 units of insulin yesterday, 140 basal + 57 bolus. BSGs were 927-268-152-131 mg/dL. * SoluMedrol was discontinued after this AM's dose. Tolerating a T2DM diet. Remains on Meropenem and PO Vanc. * Fasting BSG below goal at 97 mg/dL. Given this and steroids discontinuing, will reduce basal dose by ~25% today. * No changes to Novolog. 01/18: * 68yo Female, admitted with hypokalemia, PMH of morbid obesity, chronic right femur fracture (non-operable) with chronic pain, nonambulatory status, tracheostomy dependent, OHS/COPD/chronic respiratory failure, HFpEF (LVEF of 55-60%), cor pulmonale, anxiety, DM2, GERD, CKD4, hypothyroidism, HTN, CAD. * Patient managed on insulin pump, changed to glycemic consult while inpatient for SC insulin, patient on Solu-Medrol 40mg IV Q12H. * NovoLog parameters will need to be loosened as steroids are tapered. PLAN FOR INPATIENT GLYCEMIC CONTROL: * Hold outpatient oral diabetes medications * Basal insulin * Lantus 30 units SC daily + HS scale (0/10 units) depending on BSG * Bolus insulin * NovoLog per scale ACHS or Q6hrs while NPO * Goal Range: Low 110 mg/dL - High 140 mg/dL * Correction Factor: 12 mg/dL/unit * Nutritional / Prandial insulin per carb ratio of 1 unit per 4 grams CHO consumed
--- NOTE | 2024-01-26 15:00 | Hospitalist Progress Note ---
Date of Service January 26, 2024 Assessment & Plan (1) Acute on chronic respiratory failure with hypoxia and hypercapnia: Plan: She appears to be back to baseline. She is now on room air (2) Pneumonia: Plan: Bibasilar. She was initially on Rocephin then switched to cefepime and then completed her course of meropenem therapy. Resolved (3) Acute metabolic encephalopathy: Plan: Resolved (4) UTI (urinary tract infection): Plan: 2nd ESBL e.coli . She has completed her antibiotic course. (5) Hypokalemia: Plan: Corrected. Serial labs (6) Weakness: Plan: multifactorial - chronic deconditioning, acute illness, electrolyte issues, etc . Continue OT and PT while hospitalized (7) Tracheostomy present: Plan: chronic. Initially placed for obesity hypoventilation syndrome and RASHAAD (8) Morbid obesity: Plan: BMI ~60. Significant weight loss recommended (9) Obesity hypoventilation syndrome: Plan: Permanent tracheostomy in place. Significant weight loss recommended (10) Demand ischemia: Plan: No acute EKG changes. No chest pain. (11) CHF (congestive heart failure): Plan: Diastolic. Stable. Monitor intake and output. Continue current medical management . Lasix was restarted on January 23 (12) Hyponatremia: Plan: Mild. Asymptomatic. Multifactorial. Serial labs (13) DVT prophylaxis: Plan: lovenox 40mg BID . Venous Doppler b/l LEs neg for DVT (14) Type 2 diabetes mellitus: Plan: a1c 6.9% in 09/2023 . On insulin pump at home. ADA diet. (15) Acute gout: Plan: left mid-foot, left great toe . Resolved with prednisone therapy. Currently on a tapering dose of oral prednisone. (16) COPD exacerbation: Plan: resolved . Finish prednisone taper (17) C. difficile diarrhea: Plan: Currently receiving vancomycin orally, day 9 of 10. Improved. (18) Iron deficiency: Plan: Parenteral iron replacement completed Plan Hopeful discharge to home tomorrowJanuary 26 Admission and Anticipated Discharge Date Admission Date: January 15, 2024 Subjective Alert. No distress. She states she is transferring much better now. She asked for the bladder catheter to be removed and this has been ordered. She is on room air. Hopefully she can go home tomorrow, January 26 Review of Systems 2 Review of Systems: Constitutional-no fever or chills ENT-no blurred vision, no double vision, no epistaxis, no sore throat Respiratory-no cough, no wheezing, no shortness of breath Cardiac-no palpitations, no chest pain, no syncope GI-no nausea, vomiting, diarrhea, melena, hematochezia -no urinary retention, no urinary incontinence, no dysuria, no hematuria Musculoskeletal-no joint pain, no muscle tenderness Skin-no bruising, no rashes, no pruritus Neuro-no isolated weakness, no paresthesia, no weakness Psych-no depression, no anxiety Physical Exam 2 Physical Exam: General-alert and oriented x3, no fever, no chills. Morbidly obese HEENT-head atraumatic and normocephalic, pupils equal and reactive to light, extraocular muscles intact. Permanent tracheostomy in place Neck-no lymphadenopathy or thyromegaly, trachea midline Chest-clear to auscultation. No rales, wheezing or rhonchi Cardiac-regular rate and rhythm, normal S1 and S2, no murmurs Abdomen-normal bowel sounds, nontender, no hepatosplenomegaly GUFoley catheter in place. No hematuria. Catheter will be removed today, January 25 Extremities-chronic lower extremity peripheral edema due to chronic venous insufficiency and morbid obesity Neuro-cranial nerves II through XII intact, motor and sensory function within normal limits, strength symmetrical, no focal deficits Psych-normal affect, normal mood Results & Data Results & Data Vital Signs (Past 12 Hours) Vital Signs Temp Pulse Resp BP Pulse Ox O2 Del Method 01/26/24 14:20 36.7 C 76 19 129/67 95 Room Air 01/26/24 11:40 17 95 Aerosol Mask, Trach Collar 01/26/24 08:57 Room Air 01/26/24 07:42 36.7 C 67 18 130/70 99 Room Air 01/26/24 07:34 17 94 Room Air Laboratory Results 01/19/24 04:34 01/24/24 07:21 PG Care Time/CCT Total # of Minutes Spent Total Time Spent with Patient: Total time spent is greater than 50% in coordination of care (as documented) at patient's floor/unit and/or counseling patient: Coding Level of Care Code 25927 SUB INP/OBS CARE 3/50MIN Diagnoses Acute on chronic respiratory failure with hypoxia and hypercapnia J96.21; J96.22 Pneumonia J18.9 Acute metabolic encephalopathy G93.41 UTI (urinary tract infection) N39.0 Hypokalemia E87.6 Weakness R53.1 Tracheostomy present Z93.0 Morbid obesity E66.01 Obesity hypoventilation syndrome E66.2 Demand ischemia I24.89 CHF (congestive heart failure) I50.813 Heart failure chronicity: acute on chronic Heart failure type: right-sided Hyponatremia E87.1 DVT prophylaxis Z29.9 Type 2 diabetes mellitus E11.9 Acute gout M10.9 COPD exacerbation J44.1 C. difficile diarrhea A04.72 Iron deficiency E61.1 (11) CHF (congestive heart failure) Heart failure chronicity: acute on chronic Heart failure type: right-sided Qualified Code(s): I50.813 - Acute on chronic right heart failure
--- NOTE | 2024-01-27 09:28 | Discharge Summary ---
Date of Service January 27, 2024 Admission HPI Per Admitting Provider 68 year old female with a past medical history of morbid obesity with right femur fracture (non-operable) with chronic pain, nonambulatory status, tracheostomy dependent, COPD/chronic respiratory failure, HFrEF (LVEF of 45- 50%), anxiety, DM2, GERD, CKD4, hypothyroidism, HTN, CAD that presenting to the ED with complaints of weakness. 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 Of note she was seen in the ED on 01/08 for URI symptoms, respiratory biofire was negative. She notes her potassium has been low and she has been supplementing it for her PCPs guidance. She continues to note a cough and congestions, denies fever/chills. Denies chest pain, urinary symptoms. Spoke with daughter and she confirms history and confirmed med list. ED Course significant for: K= 2.6 repleted with 50meq KCL. Na= 131. Creatine= 1.73. BNP= 58, Trop= 17.4. CXR completed; formal read not complete but looks unchanged from CXR 01/08. Principal Diagnosis Acute on chronic hypoxic/hypercarbic respiratory failure, C. difficile enteritis, iron deficiency anemia, bilateral pneumonia, ESBL E. coli UTI, hypokalemia, acute gout Discharge Exam General-alert and oriented x3, no fever, no chills. Morbidly obese HEENT-head atraumatic and normocephalic, pupils equal and reactive to light, extraocular muscles intact. Permanent tracheostomy in place Neck-no lymphadenopathy or thyromegaly, trachea midline Chest-clear to auscultation. No rales, wheezing or rhonchi Cardiac-regular rate and rhythm, normal S1 and S2, no murmurs Abdomen-normal bowel sounds, nontender, no hepatosplenomegaly GUFoley catheter in place. No hematuria. Catheter will be removed today, January 25 Extremities-chronic lower extremity peripheral edema due to chronic venous insufficiency and morbid obesity Neuro-cranial nerves II through XII intact, motor and sensory function within normal limits, strength symmetrical, no focal deficits Psych-normal affect, normal mood Discharge Data Allergies Allergy/AdvReac Type Severity Reaction Status Date / Time Penicillins Allergy Intermediate Hives Verified 01/15/24 19:50 amitriptyline Allergy Unknown CAN'T Verified 01/15/24 19:50 REMEMBER doxycycline Allergy Unknown CAN'T Verified 01/15/24 19:50 REMEMBER guaifenesin Allergy Unknown CAN'T Verified 01/15/24 19:50 REMEMBER metformin Allergy Unknown CAN'T Verified 01/15/24 19:50 REMEMBER phenylephrine Allergy Unknown CAN'T Verified 01/15/24 19:50 REMEMBER pseudoephedrine Allergy Unknown CAN'T Verified 01/15/24 19:50 REMEMBER tetracycline Allergy Unknown CAN'T Verified 01/15/24 19:50 REMEMBER venlafaxine [From Effexor] Allergy Unknown CAN'T Verified 01/15/24 19:50 REMEMBER gabapentin AdvReac Intermediate BECOMES Verified 01/15/24 19:50 AGGRESSIVE Consultations 01/15/24 22:10 ED Decision to Admit Stat Ordered Studies 01/17/24 15:56 CT Abd and Pelvis [CT abd pelvis wo con] Urgent CT chest diagnostic wo con Urgent 01/22/24 13:54 US venous doppler LE Routine Hospital Course (1) Acute on chronic respiratory failure with hypoxia and hypercapnia: She appears to be back to baseline. She is now on room air (2) Pneumonia: Bibasilar. She was initially on Rocephin then switched to cefepime and then completed her course of meropenem therapy. Resolved (3) Acute metabolic encephalopathy: Resolved (4) UTI (urinary tract infection): 2nd ESBL e.coli . She has completed her antibiotic course. (5) Hypokalemia: Corrected. Serial labs (6) Weakness: multifactorial - chronic deconditioning, acute illness, electrolyte issues, etc . Continue OT and PT while hospitalized (7) Tracheostomy present: chronic. Initially placed for obesity hypoventilation syndrome and RASHAAD (8) Morbid obesity: BMI ~60. Significant weight loss recommended (9) Obesity hypoventilation syndrome: Permanent tracheostomy in place. Significant weight loss recommended (10) Demand ischemia: No acute EKG changes. No chest pain. (11) CHF (congestive heart failure): Diastolic. Stable. Monitor intake and output. Continue current medical management . Lasix was restarted on January 23 (12) Hyponatremia: Mild. Asymptomatic. Multifactorial. Serial labs (13) DVT prophylaxis: lovenox 40mg BID . Venous Doppler b/l LEs neg for DVT (14) Type 2 diabetes mellitus: a1c 6.9% in 09/2023 . On insulin pump at home. ADA diet. (15) Acute gout: left mid-foot, left great toe . Resolved with prednisone therapy. (16) COPD exacerbation: resolved . Finish prednisone taper (17) C. difficile diarrhea: Today is day 10 of 10 of oral vancomycin therapy (18) Iron deficiency: Parenteral iron replacement completed Plan Home todayJanuary 26 Total Time Total Time Spent Total Time Spent (In Minutes): 45 minutes Discharge Plan Discharge Items Patient Disposition: Home - Home Health Services Reason For Visit: HYPOKALEMIA Discharge Diagnosis: Acute on chronic hypercarbic/hypoxemic respiratory failure, C. difficile enteritis, iron deficiency anemia, bilateral pneumonia, ESBL E. coli UTI, hypokalemia, acute, Activity: Resume your previous activity Non-emergency contact: Primary Care Provider Call non-emergency contact if: your symptoms worsen Follow-up/Referrals: Ofe Mcgee MD [Primary Care Provider] - 02/03/24 2:45 pm (Appointment will be with ) Diet: Carb Consistent or DM2 and Heart Healthy Addtl Attending Provider Instructions: All medications remain the same Pending Studies at Discharge: No Stand-Alone Forms: My [facility] [employer], Smoking Cessation Medications and DC Order Prescriptions: Continued (DME) OneTouch Ultra Test Strip See Rx Instructions .Route Qty: 300 3RF Rx Instructions: As directed for times per day to monitor blood glucose (DME) blood-glucose meter [OneTouch Ultra2 Meter] [facility] [place] See Rx Instructions .Route Qty: 1 0RF Rx Instructions: As directed Jardiance 10 mg tablet 10 mg PO DAILY Qty: 30 5RF Rx Instructions: Take one tablet daily by mouth. (DME) nebulizers Mis See Rx Instructions .Route Qty: 1 0RF Rx Instructions: As directed (DME) pen needle, diabetic [BD Kaitlin 2nd Gen Pen Needle] 32 gauge x 5/32" needle See Rx Instructions miscellaneous .MEDSUPPLY Qty: 50 0RF Rx Instructions: As directed (DME) pen needle, diabetic [BD Kaitlin 2nd Gen Pen Needle] 32 gauge x 5/32" needle See Rx Instructions miscellaneous .MEDSUPPLY Qty: 150 5RF Rx Instructions: change new pen 5x a day ipratropium-albuterol 0.5 mg-3 mg(2.5 mg base)/3 mL solution for nebulization 3 ml INHALATION Q4H PRN (Reason: COUGHING, WHEEZING, SHORTNESS OF BREATH) Qty: 180 4RF Combivent Respimat 20-100 mcg/actuation mist 1 puff INHALATION QID Qty: 4 3RF Rx Instructions: space evenly during waking hours multivitamin Tablet 1 tab PO QAM Qty: 30 1RF atorvastatin 40 mg tablet 40 mg PO QPM Qty: 30 1RF isosorbide mononitrate 30 mg Tablet Extended Release 24 Hr 30 mg PO QAM Qty: 30 1RF melatonin 3 mg Tablet 6 mg PO HS Qty: 60 1RF Rx Instructions: OTC aspirin [Robert Low Dose Aspirin] 81 mg Tablet,Delayed Release (Dr/Ec) 81 mg PO QAM Qty: 30 1RF spironolactone 25 mg Tablet 25 mg PO QAM Qty: 30 1RF bupropion HCl 100 mg Tablet Sustained-Release 12 Hr 200 mg PO PM Qty: 90 0RF Rx Instructions: and take 100mg po qAM levothyroxine 25 mcg Tablet 25 mcg PO DAILYBB Qty: 30 1RF Rx Instructions: TOTAL DOSE 225 MCG--TAKES WITH 200 MCG TAB. pantoprazole 40 mg Tablet,Delayed Release (Dr/Ec) 40 mg PO DAILYBB Qty: 30 1RF nitroglycerin 0.4 mg tablet, sublingual 0.4 mg SL DIRECTED PRN (Reason: Chest Pain) Qty: 25 0RF folic acid 1 mg Tablet 1 mg PO QAM Qty: 30 1RF levothyroxine 200 mcg Tablet 200 mcg PO DAILYBB Qty: 30 1RF Rx Instructions: TOTAL DOSE 225 MCG--TAKES WITH 25 MCG TAB. topiramate 100 mg Tablet 100 mg PO QAM Qty: 30 1RF sertraline 50 mg Tablet 50 mg PO QAM Qty: 30 1RF metoprolol tartrate 25 mg Tablet 12.5 mg PO BID Qty: 30 1RF potassium chloride 20 mEq Tablet Extended Release 20 meq PO BID Qty: 60 1RF magnesium oxide 400 mg magnesium Tablet 400 mg PO QAM Qty: 30 1RF oxycodone 5 mg Tablet 5 mg PO Q6H PRN (Reason: pain) Qty: 20 0RF furosemide [Lasix] 80 mg tablet 80 mg PO DAILY Qty: 30 0RF fentanyl 25 mcg/hr patch 72 hour 25 mcg transdermal .Q72H insulin aspart U-100 [Novolog U-100 Insulin aspart] 100 unit/mL solution 0 unit continuous subcutaneous infusion DAILY Rx Instructions: For insulin pump 300 units a day. diclofenac sodium [Voltaren Arthritis Pain] 1 % gel 4 g EXT QID PRN (Reason: Pain) benzonatate 200 mg capsule 200 mg PO TID PRN (Reason: Cough) fentanyl 12 mcg/hr patch 72 hour 12 mcg transdermal .Q72H naloxone [Narcan] 4 mg/actuation spray,non-aerosol 4 mg INTRANASAL DIRECTED PRN (Reason: OVERDOSE) Discharge Orders: Discharge Order (Routine); Ordered 01/27/24 Ordered By: Neymar Molina Admission Data Admit Date/Time: 01/15/24 23:15 Attending Provider: Neymar Molina Admit Provider: Michelle Chamberlain Primary Care Provider: Ofe Mcgee Other Providers: [facility]; Chaparro Astudillo Coding Level of Care Code 52508 INP/OBS DISCH >30 MIN Diagnoses Acute on chronic respiratory failure with hypoxia and hypercapnia J96.21; J96.22 Pneumonia J18.9 Acute metabolic encephalopathy G93.41 UTI (urinary tract infection) N39.0 Hypokalemia E87.6 Weakness R53.1 Tracheostomy present Z93.0 Morbid obesity E66.01 Obesity hypoventilation syndrome E66.2 Demand ischemia I24.89 CHF (congestive heart failure) I50.813 Heart failure chronicity: acute on chronic Heart failure type: right-sided Hyponatremia E87.1 DVT prophylaxis Z29.9 Type 2 diabetes mellitus E11.9 Acute gout M10.9 COPD exacerbation J44.1 C. difficile diarrhea A04.72 Iron deficiency E61.1
--- NOTE | 2024-01-30 09:11 | Coding Query ---
CODING QUERY To promote full compliance with coding requirements relating to patient care, provider participation is requested in all cases of continuous improvement director uncertainty. Please assist us with the question(s) below: Coding Question(s): Pneumonia is documented in the record, with documentation, as on the 01/17 Progress Note of, "Acute on chronic respiratory failure with hypoxia and hypercapnia: Plan: acute component 2nd to b/l basilar pneumonia chronic component 2nd to [facility]/RASHAAD, ?COPD keep sats low 90s VBG obtained to ensure no worsening resp acidosis -- compensated (2) Pneumonia: Plan: b/l basilar - as seen on CT chest today (cxr was unhelpful due to body habitus, thus obtained CT chest) certainly at risk of gram neg pneumonia no h/o aspiration change rocephin to cefepime check MRSA swab supportive care", and starting on the 01/18 Progress Note, there more documentation with, "initially on rocephin, then changed to cefepime for better gram neg coverage now cefepime changed to meropenem as her urine cx grew ESBL e.coli meropenem will provide urine & lung coverage checked MRSA swab - negative; defer on MRSA coverage", and the Discharge Summary documents bilateral pneumonia and, "Pneumonia: Bibasilar. She was initially on Rocephin then switched to cefepime and then completed her course of meropenem therapy. Resolved". Please specify below, in your clinical opinion, regarding the Pneumoina: ( x ) Possible Gram Negative Pneumonia was treated. Please specify further below: ( x ) Possible Gram Negative Pneumonia was Present on Admission ( ) Possible Gram Negative Pneumonia was Not Present on Admission ( ) Other: Please Specify ( ) Pneumonia, Unspecified was treated. Please specify further below: ( ) Pneumonia was Present on Admission ( ) Pneumonia was Not Present on Admission ( ) Other: Please Specify ( ) Pneumonia, Other was treated. Please Specify . Please specify further below: ( ) Pneumonia was Present on Admission ( ) Pneumonia was Not Present on Admission ( ) Other: Please Specify Physician's Response(s): Thank you Valentina Hyatt Principal Diagnosis: "that condition established after study, to be chiefly responsible for occasioning the admission of the patient to the hospital for care." Co-Existing Principal Diagnosis: "when two or more diagnoses equally meet the criteria for principal diagnosis as determined by the circumstances of admission, diagnostic work up, and/or therapy provided, and the Alphabetic Index, Tabular List, or another coding guideline does not provide sequencing direction, any one of the diagnoses may be sequenced first." "When the physician has documented what appears to be a current diagnosis in the body of the record, but has not included the diagnosis in the final diagnostic statement, the physician should be asked whether the diagnosis should be added." (Source [facility] 2 QTR90. p3-4) ALMAZ
== END 2024-01-27 11:22 | disposition home health service (06) | DRG 177 ==
LOC: ED 19:07 → EDINP 23:15 → SUATTDRO 23:15 → 2W 01-16 02:21 → 3E 01-25 12:08

== ENCOUNTER 2024-02-03 14:24 | Inpatient (IN) ==
--- NOTE | 2024-02-03 14:49 | Emergency Department Note ---
Impression & Plan Acute on chronic respiratory failure with hypoxia and hypercapnia, CHF (congestive heart failure), Chronic obstructive pulmonary disease ED Provider Note NAME: ANN JACKSON AGE: 68 SEX: F : 1955 ARRIVES VIA: Ambulance INFORMANT: Patient ED PROVIDER(S): Don Lomeli MD CHIEF COMPLAINT: Shortness of breath PLAN: Disposition: Admit MEDICAL DECISION MAKING: The patient is a pleasant 68-year-old woman with a past medical history of chronic respiratory failure on home oxygen, history of tracheostomy, hypertension, hyperlipidemia, CKD, GERD, chronic diastolic heart failure, COPD, CAD, RAHSAAD, morbid obesity who presents to the emergency department via EMS accompanied by her home health nurse for evaluation of worsening shortness of breath over the past several days with increased congestion where they report increased sputum with suctioning as well as increased drowsiness which they attributed to her fentanyl patch but also noted intermittent myoclonic jerks. Patient reports she has been compliant with her CPAP via trach and oxygen at night. They deny any fevers. She was admitted to this facility from 01/15-01/26 for acute on chronic respiratory failure secondary to pneumonia as well as UTI. On my evaluation the patient is chronically ill-appearing but no distress, afebrile with stable vital signs. She appears hypervolemic. Lung sounds are diminished bilateral lung hale with wheezes of bilateral lung hale without significant increased work of breathing. EKG without overt acute ischemia. CXR with mild central pulmonary vascular congestion without overt pulmonary edema seen. Trace bilateral pleural effusions. Few bibasilar linear densities favor atelectasis. No consolidations to suggest pneumonia. WBC, within normal limits with marginally increased neutrophils and no left shift. H/H and platelets within normal limits. Chemistry without metabolic acidosis. VBG demonstrates acute hypercapnia with pCO2 of 65 likely explaining component of the patient's symptoms including myoclonus and intermittent somnolence though not currently present. Creatinine 1.7, similar to prior values in the setting of CKD. Potassium 3.2 with repletion provided in the setting of being also treated with IV Lasix due to component of hypervolemia with BNP of 118. High-sensitivity troponin is mildly above normal at 22.5, nonspecific. Lipase not elevated. Procalcitonin is not elevated. Treat was initiated with Solu-Medrol and DuoNeb for component of bronchospasm/COPD resulting in CO2 retention as well as IV Lasix for component of CHF/hypervolemia. Patient did agree with plan for admission for further management. Case was discussed with ANTHONY Lee hospitalist, who will evaluate the patient for admission. Further management per admitting team. Triage Nursing notes reviewed and agree them. Prior/external medical records reviewed Vital Signs: reviewed Differential diagnosis: Reactive airway disease, pneumonia, pneumothorax, COPD, CHF, infections, cardiac ischemia, pulmonary embolism, musculoskeletal, gastrointestinal, as well as other pathologies. ER treatment provided: See below. Diagnostics interpreted by me: ECG: Sinus rhythm with first degree AV block, 84 bpm, right bundle branch block, no overt ST elevation or depression, QTc 501, QRS 142. Cardiac Monitoring: An order for continuous cardiac monitoring was placed and demonstrated sinus rhythm with first degree AV block, 84 bpm, no ectopy. Laboratory studies: See below Imaging studies: See below Consultation(s): Case was discussed with ANTHONY Lee hospitalist, who will evaluate the patient for admission. HPI: The patient is a pleasant 68-year-old woman with a past medical history of chronic respiratory failure on home oxygen, history of tracheostomy, hypertension, hyperlipidemia, CKD, GERD, chronic diastolic heart failure, COPD, CAD, RASHAAD, morbid obesity who presents to the emergency department via EMS accompanied by her home health nurse for evaluation of worsening shortness of breath over the past several days with increased congestion where they report increased sputum with suctioning as well as increased drowsiness which they attributed to her fentanyl patch but also noted intermittent myoclonic jerks. Patient reports she has been compliant with her CPAP via trach mask fortis and oxygen at night. They deny any fevers. She was admitted to this facility from 01/15-01/26 for acute on chronic respiratory failure secondary to pneumonia as well as UTI. ROS: See above HPI for pertinent positives & negatives. A total of 10 systems reviewed and were otherwise negative. VITALS:See Below PHYSICAL EXAMINATION: GENERAL: Awake, alert, chronically ill appearing, in no distress. BMI 67.9. HENT: Normocephalic, atraumatic. Oropharynx unremarkable. EYES: Normal conjunctiva. Sclera non-icteric. NECK: Supple. No nuchal rigidity. FROM. No JVD. RESPIRATORY: Diminished bilateral lung hale with wheezes of bilateral lung hale without significant increased work of breathing. CARDIAC: Regular rate, normal rhythm. Extremities warm and well perfused. Pulses equal. ABDOMEN: Soft, non-distended. No tenderness to palpation. No rebound or guarding. No masses. RECTAL: Deferred. MUSCULOSKELETAL: Chest examination reveals no tenderness. The back is symmetrical on inspection without obvious abnormality. There is no CVA tenderness to palpation. No joint edema. LOWER EXTREMITIES: Calves are equal size bilaterally and non-tender. Mild BLE edema. No discoloration. NEURO: Normal sensorium. No sensory or motor deficits noted. SKIN: No rash or jaundice noted. Don Lomeli MD Past Med/Surg History Medical History Chronic diastolic heart failure Chronic obstructive pulmonary disease Type 2 diabetes mellitus Chronic hypoxic respiratory failure Obesity hypoventilation syndrome Tracheostomy dependence Chronic pain Tracheostomy in place Right heart failure Generalized weakness Fracture of distal end of right femur Hypothyroidism (acquired) Ureterolithiasis CKD (chronic kidney disease) Vitamin D deficiency Adjustment disorder with depressed mood Chronic kidney disease, stage 3 Tinea unguium Cellulitis Atypical chest pain SOB (shortness of breath) CKD stage 4 due to type 2 diabetes mellitus GERD (gastroesophageal reflux disease) Ambulatory dysfunction Breathlessness Chest pain Fluid overload Insulin-requiring or dependent type II diabetes mellitus Anxiety Coronary artery disease Morbid obesity with BMI of 60.0-69.9, adult RASHAAD (obstructive sleep apnea) CHF (congestive heart failure) Right ventricular dysfunction Sepsis MRSA (methicillin resistant staph aureus) culture positive "sputum 11/2015" HTN (hypertension) Dyslipidemia Surgical History History of hysterectomy S/P IVC filter History of tonsillectomy and adenoidectomy History of cholecystectomy History of appendectomy Family History Mother Coronary heart disease COPD (chronic obstructive pulmonary disease) Father Suicide Hung himself. Pt found him. Unknown Lung cancer Social History Smoking Status: Never smoker Tobacco Type: Cigarettes Second Hand Exposure: No; Do You Dip or Chew Tobacco: No; Hx Alcohol Use: No Hx Substance Use: No Preferred Language: Maori Communication Ability: Effective Visual Impairment: Limited Chief Passenger Ship Steward/Stewardess Required: No Beliefs That Will Affect Care: None marital status: Current Living Situation: Family Current Living Situation Comment: with daughter current occupational status: disabled How many Children do You have: 1 Feels Safe at Home: Yes Assistive Devices: Bedside Commode, Hospital Bed and Wheelchair Allergies Allergies Allergy/AdvReac Type Severity Reaction Status Date / Time Penicillins Allergy Intermediate Hives Verified 02/03/24 17:06 amitriptyline Allergy Unknown CAN'T Verified 02/03/24 17:06 REMEMBER doxycycline Allergy Unknown CAN'T Verified 02/03/24 17:06 REMEMBER guaifenesin Allergy Unknown CAN'T Verified 02/03/24 17:06 REMEMBER metformin Allergy Unknown CAN'T Verified 02/03/24 17:06 REMEMBER phenylephrine Allergy Unknown CAN'T Verified 02/03/24 17:06 REMEMBER pseudoephedrine Allergy Unknown CAN'T Verified 02/03/24 17:06 REMEMBER tetracycline Allergy Unknown CAN'T Verified 02/03/24 17:06 REMEMBER venlafaxine [From Effexor] Allergy Unknown CAN'T Verified 02/03/24 17:06 REMEMBER gabapentin AdvReac Intermediate BECOMES Verified 02/03/24 17:06 AGGRESSIVE Home Meds Home Medications Medication Instructions Recorded Confirmed benzonatate 200 mg capsule 200 mg PO TID PRN Cough 01/15/24 02/03/24 diclofenac sodium 1 % topical gel 4 g EXT QID PRN Pain 01/15/24 02/03/24 (Voltaren Arthritis Pain) fentanyl 12 mcg/hr transdermal 12 mcg transdermal .Q72H 01/15/24 02/03/24 patch fentanyl 25 mcg/hr transdermal 25 mcg transdermal .Q72H 01/15/24 02/03/24 patch insulin aspart U-100 100 unit/mL 0 unit continuous subcutaneous 01/15/24 02/03/24 subcutaneous solution (Novolog infusion DAILY U-100 Insulin aspart) naloxone 4 mg/actuation nasal 4 mg intranasal DIRECTED PRN 01/15/24 02/03/24 spray (Narcan) OVERDOSE bupropion HCl 100 mg tablet,12 hr 100 mg PO QAM 02/03/24 02/03/24 sustained-release potassium chloride 20 mEq 20 meq PO BID 02/03/24 02/03/24 tablet,extended release Previous Rx's Medication Instructions Recorded aspirin 81 mg tablet,delayed 81 mg PO QAM #30 tabs 04/06/23 release (Robert Low Dose Aspirin) atorvastatin 40 mg tablet 40 mg PO QPM #30 tabs 04/06/23 bupropion HCl 100 mg tablet,12 hr 200 mg (2 x 100 mg) PO PM #90 ea 04/06/23 sustained-release folic acid 1 mg tablet 1 mg PO QAM #30 tabs 04/06/23 isosorbide mononitrate 30 mg 30 mg PO QAM #30 tabs 04/06/23 tablet,extended release 24 hr levothyroxine 200 mcg tablet 200 mcg PO DAILYBB #30 tabs 04/06/23 levothyroxine 25 mcg tablet 25 mcg PO DAILYBB #30 tabs 04/06/23 magnesium oxide 400 mg PO QAM #30 tabs 04/06/23 melatonin 3 mg tablet 6 mg (2 x 3 mg) PO HS #60 tabs 04/06/23 metoprolol tartrate 25 mg tablet 12.5 mg (1/2 x 25 mg) PO BID #30 04/06/23 tabs multivitamin 1 tab PO QAM #30 tabs 04/06/23 nitroglycerin 0.4 mg sublingual 0.4 mg sublingual DIRECTED PRN 04/06/23 tablet Chest Pain #25 tabs pantoprazole 40 mg tablet,delayed 40 mg PO DAILYBB #30 tabs 04/06/23 release sertraline 50 mg tablet 50 mg PO QAM #30 tabs 04/06/23 spironolactone 25 mg tablet 25 mg PO QAM #30 tabs 04/06/23 topiramate 100 mg tablet 100 mg PO QAM #30 tabs 04/06/23 blood sugar diagnostic (OneTouch #300 ea 07/21/23 Ultra Test strips) blood-glucose meter (OneTouch #1 ea 07/21/23 Ultra2 Meter) pen needle, diabetic 32 gauge x #150 ea 08/26/23" (BD Kaitlin 2nd Gen Pen Needle) pen needle, diabetic 32 gauge x #50 ea 08/26/23" (BD Kaitlin 2nd Gen Pen Needle) empagliflozin 10 mg tablet 10 mg PO DAILY #30 tabs 10/07/23 (Jardiance) furosemide 80 mg tablet (Lasix) 80 mg PO DAILY #30 tabs 10/24/23 oxycodone 5 mg tablet 5 mg PO Q6H PRN pain #20 tabs 10/24/23 nebulizers #1 ea 11/16/23 ipratropium 0.5 mg-albuterol 3 mg 3 ml inhalation Q4H PRN COUGHING, 11/25/23 (2.5 mg base)/3 mL nebulization WHEEZING, SHORTNESS OF BREATH #180 soln mL ipratropium 20 mcg-albuterol 100 1 puff inhalation QID #4 grams 11/25/23 mcg/actuation mist for inhalation (Combivent Respimat) Results & Data (ED) Vital Signs Vital Signs - 24 hr 02/03/24 14:56 02/03/24 14:56 02/03/24 14:56 Temperature 37.0 C Temperature Source Axillary Pulse Rate 82 Pulse Rate [Apical] 86 Respiratory Rate 26 H 24 Respiratory Effort / Characteristics Labored Labored Blood Pressure 127/72 Blood Pressure [Left Arm] Blood Pressure Mean 90 Blood Pressure Mean [Left Arm] Pulse Oximetry 92 92 92 Oxygen Delivery Method Trach Collar Trach Collar Trach Collar Oxygen Flow Rate 10 Fraction of Inspired Oxygen 30 SaO2/FiO2 Ratio 306 Sepsis Recent Fever Within 48 Hours No Sepsis New/Unexplained Change in Mental Status No Sepsis Action Taken by Nursing No Action Required Oxygen Flow Rate - Titration 10 Fraction of Inspired Oxygen - Titration 30 02/03/24 14:56 02/03/24 16:36 02/03/24 16:45 Temperature Temperature Source Pulse Rate Pulse Rate [Apical] 83 80 Respiratory Rate 20 20 Respiratory Effort / Characteristics Non-Labored Spontaneous Blood Pressure Blood Pressure [Left Arm] 116/66 Blood Pressure Mean Blood Pressure Mean [Left Arm] 82 Pulse Oximetry 92 91 92 Oxygen Delivery Method Trach Collar Trach Collar Oxygen Flow Rate 6 Fraction of Inspired Oxygen 28 SaO2/FiO2 Ratio Sepsis Recent Fever Within 48 Hours Sepsis New/Unexplained Change in Mental Status Sepsis Action Taken by Nursing Oxygen Flow Rate - Titration Fraction of Inspired Oxygen - Titration 02/03/24 18:29 02/03/24 18:59 02/03/24 20:00 Temperature Temperature Source Pulse Rate 87 86 Pulse Rate [Apical] 85 Respiratory Rate 26 H 22 Respiratory Effort / Characteristics Blood Pressure 129/72 Blood Pressure [Left Arm] 162/95 H Blood Pressure Mean 91 Blood Pressure Mean [Left Arm] 117 Pulse Oximetry 91 92 Oxygen Delivery Method Trach Collar Trach Collar Oxygen Flow Rate Fraction of Inspired Oxygen SaO2/FiO2 Ratio Sepsis Recent Fever Within 48 Hours Sepsis New/Unexplained Change in Mental Status Sepsis Action Taken by Nursing Oxygen Flow Rate - Titration Fraction of Inspired Oxygen - Titration 02/03/24 20:47 02/03/24 21:00 Temperature Temperature Source Pulse Rate 81 80 Pulse Rate [Apical] Respiratory Rate 19 20 Respiratory Effort / Characteristics Blood Pressure 126/70 107/71 Blood Pressure [Left Arm] Blood Pressure Mean 88 83 Blood Pressure Mean [Left Arm] Pulse Oximetry 93 94 Oxygen Delivery Method Trach Collar Room Air Oxygen Flow Rate Fraction of Inspired Oxygen SaO2/FiO2 Ratio Sepsis Recent Fever Within 48 Hours Sepsis New/Unexplained Change in Mental Status Sepsis Action Taken by Nursing Oxygen Flow Rate - Titration Fraction of Inspired Oxygen - Titration Laboratory Data Attestation: I reviewed the patient's lab results. 02/03/24 14:40 02/03/24 14:40 Lab Results 02/03/24 02/03/24 02/03/24 Range/Units 14:40 15:04 16:44 WBC 9.45 (4.8-10.8) K/ul RBC 4.59 (4.20-5.40) M/uL Hgb 12.4 (12.0-16.0) g/dl Hct 41.0 (37.0-47.0) % MCV 89.3 (80.0-100.0) fL MCH 27.0 (25.0-34.0) pg MCHC 30.2 L (32.0-36.0) g/dL RDW Std Deviation 55.1 H (36.4-46.3) fL RDW Coeff of Amee 17.1 H (11.5-14.5) % Plt Count 320 (130-400) K/uL MPV 9.4 (9.4-12.4) fL Immature Gran % (Auto) 1.6 % Neut % (Auto) 70.8 % Lymph % (Auto) 12.7 % [place] % (Auto) 11.2 % Eos % (Auto) 3.2 % Baso % (Auto) 0.5 % Neut # (Auto) 6.69 H (1.40-6.50) K/uL Lymph # (Auto) 1.20 (1.20-3.40) K/uL [place] # (Auto) 1.06 H (0.11-0.59) K/uL Eos # (Auto) 0.30 (0.00-0.50) K/uL Baso # (Auto) 0.05 (0.00-0.20) K/uL Immature Gran # (Auto) 0.15 (0.01-0.20) K/uL Absolute Nucleated RBC 0.03 (0.00-0.12) K/uL Nucleated RBC % (auto) 0.3 % Polychromasia 1+ PT 10.9 (9.0-12.0) Seconds INR 1.0 (0.9-1.1) VBG pH 7.36 (7.36-7.41) VBG pCO2 65 H (38-50) mmHg VBG pO2 42 mmHg VBG HCO3 37 mmol/L VBG O2 Saturation 61.6 % VBG Base Excess 8.8 mEq/L Sodium 135 L (136-145) mmol/L Potassium 3.2 L (3.5-5.1) mmol/L Chloride 93 L (98-107) mmol/L Carbon Dioxide 32 (21-32) mmol/L Anion Gap 10 (3-11) BUN 26 H (6-23) mg/dl Creatinine 1.78 H (0.6-1.2) mg/dl Est Cr Clr Drug Dosing 45.5 ml/min Est GFR ( Amer) 33.6 ml/min Est GFR (Non-Af Amer) 29.0 ml/min BUN/Creatinine Ratio 14.6 (10-20) Glucose 80 (70-99(Fasting)) mg/dl Calcium 9.1 (8.6-10.3) mg/dl Phosphorus 3.2 (2.5-4.9) mg/dl Magnesium 2.0 (1.7-2.4) mg/dl Total Bilirubin 0.5 (0.2-1.0) mg/dl AST 17 (13-39) U/L ALT 19 (7-52) U/L Alkaline Phosphatase 83 (34-104) U/L Troponin I High Sens 22.3 H 22.5 H (0-14) pg/ml B-Natriuretic Peptide 118 H (0-100) pg/ml Total Protein 7.6 (6.0-8.3) gm/dl Albumin 3.5 (3.4-5.0) gm/dl Globulin 4.1 H (2.5-4.0) gm/dl Albumin/Globulin Ratio 0.9 (0.9-2) Lipase 22 (11-82) U/L Procalcitonin 0.29 (0-0.5) ng/ml Urine Color Urine Appearance (Clear) Urine pH (4.5-7.5) Ur Specific [place] (1.000-1.030) Urine Protein (Negative) Urine Glucose (UA) (Negative) Urine Ketones (Negative) Urine Blood (Negative) Urine Nitrite (Negative) Urine Bilirubin (Negative) Urine Urobilinogen (Negative) Ur Leukocyte Esterase (Negative) Urine WBC (Auto) (0-5) /hpf Urine RBC (Auto) (0-4) /hpf U Hyaline Cast (Auto) (0-5) /lpf U Epithel Cells (Auto) (0-5) /lpf Urine Bacteria (Auto) (Negative) Urine Yeast (None Prsent) SARS-CoV-2, RNA, NAAT (NEGATIVE) 02/03/24 02/03/24 Range/Units 17:47 Unknown WBC (4.8-10.8) K/ul RBC (4.20-5.40) M/uL Hgb (12.0-16.0) g/dl Hct (37.0-47.0) % MCV (80.0-100.0) fL MCH (25.0-34.0) pg MCHC (32.0-36.0) g/dL RDW Std Deviation (36.4-46.3) fL RDW Coeff of Amee (11.5-14.5) % Plt Count (130-400) K/uL MPV (9.4-12.4) fL Immature Gran % (Auto) % Neut % (Auto) % Lymph % (Auto) % [place] % (Auto) % Eos % (Auto) % Baso % (Auto) % Neut # (Auto) (1.40-6.50) K/uL Lymph # (Auto) (1.20-3.40) K/uL [place] # (Auto) (0.11-0.59) K/uL Eos # (Auto) (0.00-0.50) K/uL Baso # (Auto) (0.00-0.20) K/uL Immature Gran # (Auto) (0.01-0.20) K/uL Absolute Nucleated RBC (0.00-0.12) K/uL Nucleated RBC % (auto) % Polychromasia PT (9.0-12.0) Seconds INR (0.9-1.1) VBG pH (7.36-7.41) VBG pCO2 (38-50) mmHg VBG pO2 mmHg VBG HCO3 mmol/L VBG O2 Saturation % VBG Base Excess mEq/L Sodium (136-145) mmol/L Potassium (3.5-5.1) mmol/L Chloride (98-107) mmol/L Carbon Dioxide (21-32) mmol/L Anion Gap (3-11) BUN (6-23) mg/dl Creatinine (0.6-1.2) mg/dl Est Cr Clr Drug Dosing ml/min Est GFR ( Amer) ml/min Est GFR (Non-Af Amer) ml/min BUN/Creatinine Ratio (10-20) Glucose (70-99(Fasting)) mg/dl Calcium (8.6-10.3) mg/dl Phosphorus (2.5-4.9) mg/dl Magnesium (1.7-2.4) mg/dl Total Bilirubin (0.2-1.0) mg/dl AST (13-39) U/L ALT (7-52) U/L Alkaline Phosphatase (34-104) U/L Troponin I High Sens (0-14) pg/ml B-Natriuretic Peptide (0-100) pg/ml Total Protein (6.0-8.3) gm/dl Albumin (3.4-5.0) gm/dl Globulin (2.5-4.0) gm/dl Albumin/Globulin Ratio (0.9-2) Lipase (11-82) U/L Procalcitonin (0-0.5) ng/ml Urine Color Yellow Urine Appearance Clear (Clear) Urine pH 5.0 (4.5-7.5) Ur Specific [place] 1.008 (1.000-1.030) Urine Protein Negative (Negative) Urine Glucose (UA) 2+ H (Negative) Urine Ketones Negative (Negative) Urine Blood Negative (Negative) Urine Nitrite Negative (Negative) Urine Bilirubin Negative (Negative) Urine Urobilinogen Negative (Negative) Ur Leukocyte Esterase Trace H (Negative) Urine WBC (Auto) 5-10 H (0-5) /hpf Urine RBC (Auto) 0-4 (0-4) /hpf U Hyaline Cast (Auto) 1-5 (0-5) /lpf U Epithel Cells (Auto) 10-20 H (0-5) /lpf Urine Bacteria (Auto) Negative (Negative) Urine Yeast Budding A (None Prsent) SARS-CoV-2, RNA, NAAT NEGATIVE (NEGATIVE) Administered Medications Discontinued Medications Albuterol (Albut/Ipratrop 3mg/0.5mg Neb 3 Ml Vial) 3 ml NEB NOW STA; Protocol Stop: 02/03/24 16:09 Last Admin: 02/03/24 16:44 Dose: 3 ml Documented By: OZIEL Furosemide (Furosemide 40 Mg/4 Ml Vial) 80 mg IV NOW STA Stop: 02/03/24 16:06 Last Admin: 02/03/24 16:31 Dose: 80 mg Documented By: CRISTOFER Potassium Chloride (K Brian / Wtr) 10 meq in 100 mls @ 100 mls/hr IV Q1H ASIYA Stop: 02/03/24 18:29 Last Infusion: 02/03/24 20:50 Dose: Infused Documented By: [facility] Admin: 02/03/24 17:54 Dose: 100 mls/hr Documented By: Infusion: 02/03/24 17:50 Dose: Infused Documented By: Admin: 02/03/24 16:50 Dose: 100 mls/hr Documented By: CRISTOFER Methylprednisolone (Methylprednisolone 125 Mg/2 Ml Vial) 60 mg IV NOW STA Stop: 02/03/24 16:10 Last Admin: 02/03/24 16:30 Dose: 60 mg Documented By: CRISTOFER Imaging Data Radiologist's Impression: Chest X-Ray 02/03/24 14:44 XR chest 1V portable HISTORY: Shortness of breath. COMPARISON: Chest 01/17/2024. FINDINGS: No pneumothorax. The heart remains enlarged. A tracheostomy tube is in good position. There is mild central pulmonary vascular congestion without overt edema. Trace bilateral pleural effusions are again noted. A few bibasilar linear densities favor subsegmental atelectasis or scarring. Otherwise, no focal lung consolidations to suggest a pneumonia. No acute fractures. IMPRESSION: Cardiomegaly and mild pulmonary vascular congestion. This is similar to the prior study. ACT 112: Negative or not required by law. Electronically signed by: Geo Arenas M.D. 02/03/2024 3:26 PM Discharge Plan Visit Data Chief Complaint: Shortness of Breath/Dyspnea Stated Complaint: SOB ED Provider: Don Lomeli Discharge Problem: Acute on chronic respiratory failure with hypoxia and hypercapnia, CHF (congestive heart failure), Chronic obstructive pulmonary disease Forms Stand Alone Forms: My [facility] Prescriptions Prescriptions: No Action (DME) OneTouch Ultra Test Strip See Rx Instructions .Route Qty: 300 3RF Rx Instructions: As directed for times per day to monitor blood glucose (DME) blood-glucose meter [OneTouch Ultra2 Meter] Misc See Rx Instructions .Route Qty: 1 0RF Rx Instructions: As directed Jardiance 10 mg tablet 10 mg PO DAILY Qty: 30 5RF Rx Instructions: Take one tablet daily by mouth. (DME) nebulizers Misc See Rx Instructions .Route Qty: 1 0RF Rx Instructions: As directed (DME) pen needle, diabetic [BD Kaitlin 2nd Gen Pen Needle] 32 gauge x 5/32" needle See Rx Instructions miscellaneous .MEDSUPPLY Qty: 50 0RF Rx Instructions: As directed (DME) pen needle, diabetic [BD Kaitlin 2nd Gen Pen Needle] 32 gauge x 5/32" needle See Rx Instructions miscellaneous .MEDSUPPLY Qty: 150 5RF Rx Instructions: change new pen 5x a day ipratropium-albuterol 0.5 mg-3 mg(2.5 mg base)/3 mL solution for nebulization 3 ml INHALATION Q4H PRN (Reason: COUGHING, WHEEZING, SHORTNESS OF BREATH) Qty: 180 4RF Combivent Respimat 20-100 mcg/actuation mist 1 puff INHALATION QID Qty: 4 3RF Rx Instructions: space evenly during waking hours multivitamin Tablet 1 tab PO QAM Qty: 30 1RF atorvastatin 40 mg tablet 40 mg PO QPM Qty: 30 1RF isosorbide mononitrate 30 mg Tablet Extended Release 24 Hr 30 mg PO QAM Qty: 30 1RF melatonin 3 mg Tablet 6 mg PO HS Qty: 60 1RF Rx Instructions: OTC aspirin [Robert Low Dose Aspirin] 81 mg Tablet,Delayed Release (Dr/Ec) 81 mg PO QAM Qty: 30 1RF spironolactone 25 mg Tablet 25 mg PO QAM Qty: 30 1RF bupropion HCl 100 mg Tablet Sustained-Release 12 Hr 200 mg PO PM Qty: 90 0RF levothyroxine 25 mcg Tablet 25 mcg PO DAILYBB Qty: 30 1RF Rx Instructions: TOTAL DOSE 225 MCG--TAKES WITH 200 MCG TAB. pantoprazole 40 mg Tablet,Delayed Release (Dr/Ec) 40 mg PO DAILYBB Qty: 30 1RF nitroglycerin 0.4 mg tablet, sublingual 0.4 mg SL DIRECTED PRN (Reason: Chest Pain) Qty: 25 0RF folic acid 1 mg Tablet 1 mg PO QAM Qty: 30 1RF levothyroxine 200 mcg Tablet 200 mcg PO DAILYBB Qty: 30 1RF Rx Instructions: TOTAL DOSE 225 MCG--TAKES WITH 25 MCG TAB. topiramate 100 mg Tablet 100 mg PO QAM Qty: 30 1RF sertraline 50 mg Tablet 50 mg PO QAM Qty: 30 1RF metoprolol tartrate 25 mg Tablet 12.5 mg PO BID Qty: 30 1RF magnesium oxide 400 mg magnesium Tablet 400 mg PO QAM Qty: 30 1RF oxycodone 5 mg Tablet 5 mg PO Q6H PRN (Reason: pain) Qty: 20 0RF furosemide [Lasix] 80 mg tablet 80 mg PO DAILY Qty: 30 0RF fentanyl 25 mcg/hr patch 72 hour 25 mcg transdermal .Q72H insulin aspart U-100 [Novolog U-100 Insulin aspart] 100 unit/mL solution 0 unit continuous subcutaneous infusion DAILY Rx Instructions: For insulin pump 300 units a day. diclofenac sodium [Voltaren Arthritis Pain] 1 % gel 4 g EXT QID PRN (Reason: Pain) benzonatate 200 mg capsule 200 mg PO TID PRN (Reason: Cough) fentanyl 12 mcg/hr patch 72 hour 12 mcg transdermal .Q72H naloxone [Narcan] 4 mg/actuation spray,non-aerosol 4 mg INTRANASAL DIRECTED PRN (Reason: OVERDOSE) bupropion HCl 100 mg tablet sustained-release 12 hr 100 mg PO QAM potassium chloride 20 mEq tablet extended release 20 meq PO BID Referrals Referrals: Ofe Mcgee MD [Primary Care Provider] - Discharge Problem: CHF (congestive heart failure) Qualifiers: Heart failure type: diastolic Heart failure chronicity: acute on chronic Q ualified Code(s): I50.33 - Acute on chronic diastolic (congestive) heart failure Chronic obstructive pulmonary disease Qualifiers: COPD type: COPD with acute exacerbation Qualified Code(s): J44.1 - Chronic obstructive pulmonary disease with (acute) exacerbation
[2024-02-03 15:28] LABS: Albumin Globulin Ratio 0.9 (0.9-2); Albumin Level 3.5 gm/dl (3.4-5.0); BUN Creatinine Ratio 14.6 (10-20); Bilirubin,Total 0.5 mg/dl (0.2-1.0); Calcium 9.1 mg/dl (8.6-10.3); Creatinine Clr Calc Pharmacy 45.5 ml/min; Est GFR (African American) 33.6 ml/min; Globulin 4.1 gm/dl (2.5-4.0); Phosphorus 3.2 mg/dl (2.5-4.9); Potassium 3.2 mmol/L (3.5-5.1); Total Protein 7.6 gm/dl (6.0-8.3)
--- NOTE | 2024-02-03 15:28 | XRay Report ---
XR chest 1V portable HISTORY: Shortness of breath. COMPARISON: Chest 01/17/2024. FINDINGS: No pneumothorax. The heart remains enlarged. A tracheostomy tube is in good position. There is mild central pulmonary vascular congestion without overt edema. Trace bilateral pleural effusions are again noted. A few bibasilar linear densities favor subsegmental atelectasis or scarring. Otherw ise, no focal lung consolidations to suggest a pneumonia. No acute fractures. IMPRESSION: Cardiomegaly and mild pulmonary vascular congestion. This is similar to the prior study. ACT 112: Negative or not required by law. Electronically signed by: Geo Arenas M.D. 02/03/2024 3:26 PM
[2024-02-03 15:33] LABS: Troponin I High Sensitivity 22.3 pg/ml (0-14)
[2024-02-03 15:34] LABS: Prothrombin Time 10.9 Seconds (9.0-12.0)
[2024-02-03 16:18] LABS: Basophils # (auto) 0.05 K/uL (0.00-0.20); Basophils % (auto) 0.5 %; Eosinophils % (auto) 3.2 %; Hemoglobin 12.4 g/dl (12.0-16.0); Immature Granulocytes # (auto) 0.15 K/uL (0.01-0.20); Immature Granulocytes % (auto) 1.6 %; Lymphocytes % (auto) 12.7 %; Mean Corpuscular Hgb Conc 30.2 g/dL (32.0-36.0); Mean Corpuscular Volume 89.3 fL (80.0-100.0); Mean Platelet Volume 9.4 fL (9.4-12.4); Monocytes # (auto) 1.06 K/uL (0.11-0.59); Monocytes % (auto) 11.2 %; Neutrophils # (auto) 6.69 K/uL (1.40-6.50); Neutrophils % (auto) 70.8 %; Nucleated RBC # (auto) 0.03 K/uL (0.00-0.12); Nucleated RBC % (auto) 0.3 %; Platelet Count 320 K/uL (130-400); Polychromasia 1+; RDW Coefficient of Variation 17.1 % (11.5-14.5); RDW Standard Deviation 55.1 fL (36.4-46.3); Red Blood Count 4.59 M/uL (4.20-5.40); White Blood Count 9.45 K/ul (4.8-10.8)
[2024-02-03] MEDS: methylPREDNISolone 125 MG/2 ML VIAL IV STA (16:30)
[2024-02-03] MEDS: FUROSEMIDE 40 MG/4 ML VIAL IV STA (16:31)
[2024-02-03] MEDS: ALBUT/IPRATROP 3MG/0.5MG NEB 3 ML VIAL NEB STA (16:44)
[2024-02-03] MEDS: POTASSIUM CHLORIDE / WTR 10 MEQ/100 ML PLCT IV SCH (16:50)
[2024-02-03 16:52] LABS: Base Excess VBG 8.8 mEq/L; HCO3 VBG 37 mmol/L; Oxygen Saturation VBG 61.6 %; PCO2 VBG 65 mmHg (38-50); PO2 VBG 42 mmHg; pH VBG 7.36 (7.36-7.41)
[2024-02-03 18:04] LABS: Appearance Urine Clear (Clear); Bacteria Urine Automated Negative (Negative); Bilirubin Urine Negative (Negative); Blood Urine Negative (Negative); Color Urine Yellow; Glucose Urine UA 2+ (Negative); Ketones Urine Negative (Negative); Leukocyte Esterase Urine Trace (Negative); Nitrite Urine Negative (Negative); Protein Urine Negative (Negative); RBC Urine Automated 0-4 /hpf (0-4); Specific Gravity Urine 1.008 (1.000-1.030); Urobilinogen Urine Negative (Negative)
--- NOTE | 2024-02-03 19:53 | History & Physical Report ---
Date of Service February 03, 2024 Assessment & Plan (1) Acute on chronic hypoxic respiratory failure: Plan: Patient with reported hypoxia at home. Saturations have been adequate while here. Recent PNA s/p adequate treatment - WBC improved, procalcitonin does not suggest active PNA. Possibly component of CHF - mild elevation of BMP, pulmonary congestion noted on CXR. She has had good output with Lasix. Suspect some degree of non-adherence to home oxygen therapy as well. Nursing reports that patient does not always wear her O2. Likely having episodes of hypoxia possible explanation for her myoclonic jerking -Admit to m with telemetryedical -Supplemental O2 via trach collar - 5L/m, humidified -Continue Lasix 80mg IV daily -Monitor I/Os, daily weights -DuoNeb QIDR -Albuterol PRN (2) Chronic diastolic heart failure: Plan: Possibly mild volume overload contributing to patient's hypoxic events. Lasix 80mg IV given -Continue Lasix 80mg IV daily, monitor output and daily weights -Continue Metoprolol -Continue Isosorbide mononitrate -Continue Spironolactone -Patient on Empagliflozin at home as well - can continue on DC (3) Chronic pain: Plan: Patient with chronic back pain and pain in right femur from an inoperable fracture. She is on Fentanyl TD 25mcg, concern for increased sleepiness with this dose -WIll decrease to 12.5mcg -Oxycodone available PRN (4) Type 2 diabetes mellitus: Plan: Chronic. Stable. Patient with insulin pump in place but does not have extra insulin. Last HgbA1C - 6.9 on 10/18/23. -Hold insulin pump for now -Lantus 15u BID -ISS -Goal blood sugar inpatient 110 - 140 (5) Hypothyroidism: Plan: Chronic. Stable -Continue Synthroid (6) Chronic obstructive pulmonary disease: Plan: Chronic. Some wheezing noted on exam. Patient given steroids in the ER -Continue Duonebs QIDR -Albuterol PRN History of Present Illness Chief Complaint: decreased oxygen, confusion Primary Care Provider: Ofe Mcgee MD Whit Connelly is a 68yo female with history of tracheostomy dependent chronic hypoxic respiratory failure, RASHAAD, OHS as well as cor pulmonale with diastolic heart failure, COPD and IDDM presenting from home with concern for decreased oxygen saturation and some episodes of confusion. Patient's home health nurse (Waleska) is at bedside and assists with history. She reports that Ms. Connelly has had several episodes of hypoxia over the last few days. She has had some increased confusion as well as some myoclonic jerking. Waleska reports that patient's saturation was 76% this morning (of note, patient only wore her O2 for part of the night). Nurse administered a breathing treatment with improvement of saturations to the 80's. EMS was called and additional breathing treatments were given with improvement in sats to the 90's. Patient and nurse voice concern for Fentanyl patch dose. It was increased to 25mcg approximately one month ago. Since this increase patient reports that she does not like how it makes her feel. Patient reports that she still has some chest heaviness ongoing from her pneumonia. She also feels lightheaded. No report of fever, chills, vomiting or diarrhea. Normal PO intake - normal bowel movements and urination. She does have occasional sputum from her trach - thick and yellow in color with occasional difficulty with coughing and clearing secretions. Patient was recently hospitalized from 01/15/24 - 01/27/24 after presenting with weakness, cough and congestion. She was found to have bibasilar pneumonia and was treated with Ceftriaxone, Cefepime and Meropenem with improvement. She also had an ESBL E. Coli UTI. She was ultimately discharged home in stable condition. In the ER she is afebrile, HD stable. Adequate oxygenation on 5L TC Lasix 80mg IV given by the ER - patient has urinated quite a bit, 2L UOP after Lasix administration ER Course: Lasix 80mg IV Solumedrol 60mg IV Albuterol 3mL neb KCL 20mEq PO Allergies Allergy/AdvReac Type Severity Reaction Status Date / Time Penicillins Allergy Intermediate Hives Verified 02/03/24 17:06 amitriptyline Allergy Unknown CAN'T Verified 02/03/24 17:06 REMEMBER doxycycline Allergy Unknown CAN'T Verified 02/03/24 17:06 REMEMBER guaifenesin Allergy Unknown CAN'T Verified 02/03/24 17:06 REMEMBER metformin Allergy Unknown CAN'T Verified 02/03/24 17:06 REMEMBER phenylephrine Allergy Unknown CAN'T Verified 02/03/24 17:06 REMEMBER pseudoephedrine Allergy Unknown CAN'T Verified 02/03/24 17:06 REMEMBER tetracycline Allergy Unknown CAN'T Verified 02/03/24 17:06 REMEMBER venlafaxine [From Effexor] Allergy Unknown CAN'T Verified 02/03/24 17:06 REMEMBER gabapentin AdvReac Intermediate BECOMES Verified 02/03/24 17:06 AGGRESSIVE Home Medications Medication Instructions Recorded Confirmed Type aspirin 81 mg tablet,delayed 81 mg PO QAM #30 tabs 04/06/23 02/03/24 Rx release (Robert Low Dose Aspirin) atorvastatin 40 mg tablet 40 mg PO QPM #30 tabs 04/06/23 02/03/24 Rx bupropion HCl 100 mg tablet,12 hr 200 mg (2 x 100 mg) PO PM #90 ea 04/06/23 02/03/24 Rx sustained-release folic acid 1 mg tablet 1 mg PO QAM #30 tabs 04/06/23 02/03/24 Rx isosorbide mononitrate 30 mg 30 mg PO QAM #30 tabs 04/06/23 02/03/24 Rx tablet,extended release 24 hr levothyroxine 200 mcg tablet 200 mcg PO DAILYBB #30 tabs 04/06/23 02/03/24 Rx levothyroxine 25 mcg tablet 25 mcg PO DAILYBB #30 tabs 04/06/23 02/03/24 Rx magnesium oxide 400 mg PO QAM #30 tabs 04/06/23 02/03/24 Rx melatonin 3 mg tablet 6 mg (2 x 3 mg) PO HS #60 tabs 04/06/23 02/03/24 Rx metoprolol tartrate 25 mg tablet 12.5 mg (1/2 x 25 mg) PO BID #30 04/06/23 02/03/24 Rx tabs multivitamin 1 tab PO QAM #30 tabs 04/06/23 02/03/24 Rx nitroglycerin 0.4 mg sublingual 0.4 mg sublingual DIRECTED PRN 04/06/23 02/03/24 Rx tablet Chest Pain #25 tabs pantoprazole 40 mg tablet,delayed 40 mg PO DAILYBB #30 tabs 04/06/23 02/03/24 Rx release sertraline 50 mg tablet 50 mg PO QAM #30 tabs 04/06/23 02/03/24 Rx spironolactone 25 mg tablet 25 mg PO QAM #30 tabs 04/06/23 02/03/24 Rx topiramate 100 mg tablet 100 mg PO QAM #30 tabs 04/06/23 02/03/24 Rx blood sugar diagnostic (OneTouch #300 ea 07/21/23 02/03/24 Rx Ultra Test strips) blood-glucose meter (OneTouch #1 ea 07/21/23 02/03/24 Rx Ultra2 Meter) pen needle, diabetic 32 gauge x #150 ea 08/26/23 02/03/24 Rx 5/32" (BD Kaitlin 2nd Gen Pen Needle) pen needle, diabetic 32 gauge x #50 ea 08/26/23 02/03/24 Rx 5/32" (BD Kaitlin 2nd Gen Pen Needle) empagliflozin 10 mg tablet 10 mg PO DAILY #30 tabs 10/07/23 02/03/24 Rx (Jardiance) furosemide 80 mg tablet (Lasix) 80 mg PO DAILY #30 tabs 10/24/23 02/03/24 Rx oxycodone 5 mg tablet 5 mg PO Q6H PRN pain #20 tabs 10/24/23 02/03/24 Rx nebulizers #1 ea 11/16/23 02/03/24 Rx ipratropium 0.5 mg-albuterol 3 mg 3 ml inhalation Q4H PRN COUGHING, 11/25/23 02/03/24 Rx (2.5 mg base)/3 mL nebulization WHEEZING, SHORTNESS OF BREATH #180 soln mL ipratropium 20 mcg-albuterol 100 1 puff inhalation QID #4 grams 11/25/23 02/03/24 Rx mcg/actuation mist for inhalation (Combivent Respimat) benzonatate 200 mg capsule 200 mg PO TID PRN Cough 01/15/24 02/03/24 History diclofenac sodium 1 % topical gel 4 g EXT QID PRN Pain 01/15/24 02/03/24 History (Voltaren Arthritis Pain) fentanyl 12 mcg/hr transdermal 12 mcg transdermal .Q72H 01/15/24 02/03/24 History patch fentanyl 25 mcg/hr transdermal 25 mcg transdermal .Q72H 01/15/24 02/03/24 History patch insulin aspart U-100 100 unit/mL 0 unit continuous subcutaneous 01/15/24 02/03/24 History subcutaneous solution (Novolog infusion DAILY U-100 Insulin aspart) naloxone 4 mg/actuation nasal 4 mg intranasal DIRECTED PRN 01/15/24 02/03/24 History spray (Narcan) OVERDOSE bupropion HCl 100 mg tablet,12 hr 100 mg PO QAM 02/03/24 02/03/24 History sustained-release potassium chloride 20 mEq 20 meq PO BID 02/03/24 02/03/24 History tablet,extended release Past Med/Surg History Medical History (Updated 02/04/24 @ 00:58 by Dena Red DO) Chronic pain Chronic diastolic heart failure cor pulmonale Chronic obstructive pulmonary disease Type 2 diabetes mellitus Chronic hypoxic respiratory failure Obesity hypoventilation syndrome Tracheostomy dependence Generalized weakness Fracture of distal end of right femur Hypothyroidism (acquired) Ureterolithiasis Vitamin D deficiency Adjustment disorder with depressed mood Chronic kidney disease, stage 3 Tinea unguium GERD (gastroesophageal reflux disease) Ambulatory dysfunction Insulin-requiring or dependent type II diabetes mellitus Anxiety Coronary artery disease Morbid obesity with BMI of 60.0-69.9, adult RASHAAD (obstructive sleep apnea) Right ventricular dysfunction Sepsis MRSA (methicillin resistant staph aureus) culture positive "sputum 11/2015" HTN (hypertension) Dyslipidemia Surgical History History of hysterectomy S/P IVC filter History of tonsillectomy and adenoidectomy History of cholecystectomy History of appendectomy Family History Mother Coronary heart disease COPD (chronic obstructive pulmonary disease) Father Suicide Hung himself. Pt found him. 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 Beliefs That Will Affect Care: None marital status: Current Living Situation: Family Current Living Situation Comment: with daughter current occupational status: disabled How many Children do You have: 1 Feels Safe at Home: Yes Assistive Devices: Bedside Commode, Hospital Bed and Wheelchair Review of Systems Review of Systems: All systems reviewed & are unremarkable except as noted in HPI & below Physical Exam Physical Exam: General: morbidly obese female patient resting comfortably, NAD, non-toxic in appearance, AA&O x 4 Skin: warm, dry, intact, no rashes or lesions HEENT: NC/AT, PERRL, EOMI, anicteric sclera, conjunctiva without injection, external ear normal to inspection and nontender, nares patent, moist mucus membranes, dentition intact, no oropharyngeal lesions, neck supple, trachea midline, no LAD, no thyromegaly, no JVD, tracheostomy in place with speaking valve, trach collar 5L/m Heart: +S1/S2, regular, no m/r/g Lungs: diminished breath sounds bilaterally, crackles present in bilateral bases, scattered end-expiratory wheezing, no rhonchi Abd: +BS, soft, NT/ND, no masses/organomegaly/ascites Ext: warm, 2+ pulses in UE/LE bilaterally, no clubbing/cyanosis or edema Neuro: nonfocal, patient AA&O x 4, speech intact, no facial droop, moving all e xtremities on command with equal strength 5/5 Results & Data Results & Data Vital Signs (Past 12 Hours) Vital Signs Temp Pulse Pulse Resp BP BP Pulse Ox 02/03/24 18:59 85 26 H 162/95 H 91 02/03/24 18:29 87 02/03/24 16:45 80 20 92 02/03/24 16:36 83 20 116/66 91 02/03/24 14:56 92 02/03/24 14:56 86 24 92 02/03/24 14:56 92 02/03/24 14:56 37.0 C 82 26 H 127/72 92 O2 Del Method O2 Flow Rate FiO2 02/03/24 18:59 Trach Collar 02/03/24 18:29 02/03/24 16:45 Trach Collar 6 28 02/03/24 16:36 02/03/24 14:56 Trach Collar 02/03/24 14:56 Trach Collar 02/03/24 14:56 Trach Collar 02/03/24 14:56 Trach Collar 10 30 Laboratory Results Laboratory Results WBC 9.45 K/ul (4.8-10.8) 02/03/24 14:40 RBC 4.59 M/uL (4.20-5.40) 02/03/24 14:40 Hgb 12.4 g/dl (12.0-16.0) 02/03/24 14:40 Hct 41.0 % (37.0-47.0) 02/03/24 14:40 MCV 89.3 fL (80.0-100.0) 02/03/24 14:40 MCH 27.0 pg (25.0-34.0) 02/03/24 14:40 MCHC 30.2 g/dL (32.0-36.0) L 02/03/24 14:40 RDW Std Deviation 55.1 fL (36.4-46.3) H 02/03/24 14:40 RDW Coeff of Amee 17.1 % (11.5-14.5) H 02/03/24 14:40 Plt Count 320 K/uL (130-400) 02/03/24 14:40 MPV 9.4 fL (9.4-12.4) 02/03/24 14:40 Immature Gran % (Auto) 1.6 % 02/03/24 14:40 Neut % (Auto) 70.8 % 02/03/24 14:40 Lymph % (Auto) 12.7 % 02/03/24 14:40 Titus % (Auto) 11.2 % 02/03/24 14:40 Eos % (Auto) 3.2 % 02/03/24 14:40 Baso % (Auto) 0.5 % 02/03/24 14:40 Neut # (Auto) 6.69 K/uL (1.40-6.50) H 02/03/24 14:40 Lymph # (Auto) 1.20 K/uL (1.20-3.40) 02/03/24 14:40 Titus # (Auto) 1.06 K/uL (0.11-0.59) H 02/03/24 14:40 Eos # (Auto) 0.30 K/uL (0.00-0.50) 02/03/24 14:40 Baso # (Auto) 0.05 K/uL (0.00-0.20) 02/03/24 14:40 Immature Gran # (Auto) 0.15 K/uL (0.01-0.20) 02/03/24 14:40 Absolute Nucleated RBC 0.03 K/uL (0.00-0.12) 02/03/24 14:40 Nucleated RBC % (auto) 0.3 % 02/03/24 14:40 Polychromasia 1+ 02/03/24 14:40 PT 10.9 Seconds (9.0-12.0) 02/03/24 14:40 INR 1.0 (0.9-1.1) 02/03/24 14:40 VBG pH 7.36 (7.36-7.41) 02/03/24 16:44 VBG pCO2 65 mmHg (38-50) H 02/03/24 16:44 VBG pO2 42 mmHg 02/03/24 16:44 VBG HCO3 37 mmol/L 02/03/24 16:44 VBG O2 Saturation 61.6 % 02/03/24 16:44 VBG Base Excess 8.8 mEq/L 02/03/24 16:44 Sodium 135 mmol/L (136-145) L 02/03/24 14:40 Potassium 3.2 mmol/L (3.5-5.1) L 02/03/24 14:40 Chloride 93 mmol/L (98-107) L 02/03/24 14:40 Carbon Dioxide 32 mmol/L (21-32) 02/03/24 14:40 Anion Gap 10 (3-11) 02/03/24 14:40 BUN 26 mg/dl (6-23) H 02/03/24 14:40 Creatinine 1.78 mg/dl (0.6-1.2) H 02/03/24 14:40 Est Cr Clr Drug Dosing 45.5 ml/min 02/03/24 14:40 Est GFR ( Amer) 33.6 ml/min 02/03/24 14:40 Est GFR (Non-Af Amer) 29.0 ml/min 02/03/24 14:40 BUN/Creatinine Ratio 14.6 (10-20) 02/03/24 14:40 Glucose 80 mg/dl (70-99(Fasting)) 02/03/24 14:40 POC Glucose 238 mg/dl (70-99) H 02/03/24 23:47 Calcium 9.1 mg/dl (8.6-10.3) 02/03/24 14:40 Phosphorus 3.2 mg/dl (2.5-4.9) 02/03/24 14:40 Magnesium 2.0 mg/dl (1.7-2.4) 02/03/24 14:40 Total Bilirubin 0.5 mg/dl (0.2-1.0) 02/03/24 14:40 AST 17 U/L (13-39) 02/03/24 14:40 ALT 19 U/L (7-52) 02/03/24 14:40 Alkaline Phosphatase 83 U/L (34-104) 02/03/24 14:40 Troponin I High Sens 22.5 pg/ml (0-14) H 02/03/24 16:44 B-Natriuretic Peptide 118 pg/ml (0-100) H 02/03/24 15:04 Total Protein 7.6 gm/dl (6.0-8.3) 02/03/24 14:40 Albumin 3.5 gm/dl (3.4-5.0) 02/03/24 14:40 Globulin 4.1 gm/dl (2.5-4.0) H 02/03/24 14:40 Albumin/Globulin Ratio 0.9 (0.9-2) 02/03/24 14:40 Lipase 22 U/L (11-82) 02/03/24 14:40 Procalcitonin 0.29 ng/ml (0-0.5) 02/03/24 14:40 Urine Color Yellow 02/03/24 17:47 Urine Appearance Clear (Clear) 02/03/24 17:47 Urine pH 5.0 (4.5-7.5) 02/03/24 17:47 Ur Specific [place] 1.008 (1.000-1.030) 02/03/24 17:47 Urine Protein Negative (Negative) 02/03/24 17:47 Urine Glucose (UA) 2+ (Negative) H 02/03/24 17:47 Urine Ketones Negative (Negative) 02/03/24 17:47 Urine Blood Negative (Negative) 02/03/24 17:47 Urine Nitrite Negative (Negative) 02/03/24 17:47 Urine Bilirubin Negative (Negative) 02/03/24 17:47 Urine Urobilinogen Negative (Negative) 02/03/24 17:47 Ur Leukocyte Esterase Trace (Negative) H 02/03/24 17:47 Urine WBC (Auto) 5-10 /hpf (0-5) H 02/03/24 17:47 Urine RBC (Auto) 0-4 /hpf (0-4) 02/03/24 17:47 U Hyaline Cast (Auto) 1-5 /lpf (0-5) 02/03/24 17:47 U Epithel Cells (Auto) 10-20 /lpf (0-5) H 02/03/24 17:47 Urine Bacteria (Auto) Negative (Negative) 02/03/24 17:47 Urine Yeast Budding (None Prsent) A 02/03/24 17:47 SARS-CoV-2, RNA, NAAT NEGATIVE (NEGATIVE) 02/03/24 Unknown Impressions Chest X-Ray 02/03/24 14:44 XR chest 1V portable HISTORY: Shortness of breath. COMPARISON: Chest 01/17/2024. FINDINGS: No pneumothorax. The heart remains enlarged. A tracheostomy tube is in good position. There is mild central pulmonary vascular congestion without overt edema. Trace bilateral pleural effusions are again noted. A few bibasilar linear densities favor subsegmental atelectasis or scarring. Otherwise, no focal lung consolidations to suggest a pneumonia. No acute fractures. IMPRESSION: Cardiomegaly and mild pulmonary vascular congestion. This is similar to the prior study. ACT 112: Negative or not required by law. Electronically signed by: Geo Arenas M.D. 02/03/2024 3:26 PM Code Status & VTE Plan VTE Prophylaxis Plan VTE Prophylaxis will be ordered: Yes PG Care Time/CCT Total # of Minutes Spent Total Time Spent with Patient: Total time spent is greater than 50% in coordination of care (as documented) at patient's floor/unit and/or counseling patient: Coding Level of Care Code 91656 INT INP/OBS CARE 3/75MIN Diagnoses Acute on chronic hypoxic respiratory failure J96.21 Chronic diastolic heart failure I50.32 Chronic pain G89.29 Type 2 diabetes mellitus E11.9 Hypothyroidism E03.9 Chronic obstructive pulmonary disease J44.1 COPD type: COPD with acute exacerbation (6) Chronic obstructive pulmonary disease COPD type: COPD with acute exacerbation Qualified Code(s): J44.1 - Chronic obstructive pulmonary disease with (acute) exacerbation
[2024-02-03] MEDS ORDERED: CARBOHYDRATES FOR HYPOGLYCEMIA PO PRN (22:16)
[2024-02-03] MEDS ORDERED: ALBUTEROL 0.5% NEB SOLN 2.5 MG/0.5 ML VIAL NEB PRN (22:16)
[2024-02-03] MEDS ORDERED: GLUCOSE 10 TAB/TUBE PO PRN (22:16)
[2024-02-03] MEDS ORDERED: DICLOFENAC SOD 1% GEL 100 GM TUBE EXT PRN (22:16)
[2024-02-03] MEDS ORDERED: DEXTROSE 50% 50 ML SYRINGE IV PRN (22:16)
[2024-02-03] MEDS ORDERED: GLUCAGON FOR INJ 1 MG VIAL SQ PRN (22:16)
[2024-02-03] MEDS ORDERED: ONDANSETRON INJ 2 MG/ML 2 ML VIAL IV PRN (22:16)
[2024-02-03] MEDS ORDERED: GLUCOSE 40% GEL 15 GM TUBE PO PRN (22:16)
[2024-02-03] MEDS ORDERED: ALBUT/IPRATROP 3MG/0.5MG NEB 3 ML VIAL NEB SCH (23:00)
[2024-02-03] MEDS: MELATONIN 3 MG TAB PO SCH (23:49)
[2024-02-03] MEDS: buPROPion SR 100 MG TABCR PO SCH (23:50)
[2024-02-03] MEDS: METOPROLOL TARTRATE 25 MG TAB PO SCH (23:53)
[2024-02-03] MEDS: ATORVASTATIN 40 MG TAB PO SCH (23:57)
[2024-02-03] MEDS: POTASSIUM CHLORIDE CRTAB 20 MEQ TABCR PO STA (23:58)
[2024-02-04] MEDS: LANTUS PER UNIT CHARGE SQ SCH (00:10)
[2024-02-04] MEDS: INSULIN ASPART PER UNIT CHARGE SC SCH (00:10)
[2024-02-04] MEDS: CHECK fentaNYL PATCH PLACEMENT SCH (00:35)
[2024-02-04 05:10] LABS: Hematocrit (blood only) 35.9 % (37.0-47.0); Hemoglobin 11.2 g/dl (12.0-16.0); Mean Corpuscular Hemoglobin 27.1 pg (25.0-34.0); Mean Corpuscular Hgb Conc 31.2 g/dL (32.0-36.0); Mean Corpuscular Volume 86.7 fL (80.0-100.0); Mean Platelet Volume 9.3 fL (9.4-12.4); Nucleated RBC # (auto) 0.02 K/uL (0.00-0.12); Nucleated RBC % (auto) 0.3 %; Platelet Count 286 K/uL (130-400); RDW Coefficient of Variation 16.7 % (11.5-14.5); RDW Standard Deviation 52.4 fL (36.4-46.3); Red Blood Count 4.14 M/uL (4.20-5.40); White Blood Count 7.99 K/ul (4.8-10.8)
[2024-02-04 05:15] LABS: BUN Creatinine Ratio 16.9 (10-20); Calcium 8.6 mg/dl (8.6-10.3); Creatinine Clr Calc Pharmacy 48.5 ml/min; Est GFR (African American) 36.6 ml/min; Est GFR (Non-African American) 31.6 ml/min; Potassium 3.6 mmol/L (3.5-5.1)
[2024-02-04 05:37] LABS: Troponin I High Sensitivity 13.7 pg/ml (0-14)
[2024-02-04] MEDS: ALBUT/IPRATROP 3MG/0.5MG NEB 3 ML VIAL NEB SCH (07:16)
[2024-02-04] MEDS: PANTOprazole 40 MG TAB PO SCH (07:28)
[2024-02-04] MEDS: LEVOTHYROXINE SODIUM 25 MCG TABLET PO SCH (07:28)
[2024-02-04] MEDS: LEVOTHYROXINE SODIUM 200 MCG TABLET PO SCH (07:28)
--- NOTE | 2024-02-04 08:35 | Electrocardiogram Report ---
Test Reason : Blood Pressure : / mmHG Vent. Rate : 084 BPM Atrial Rate : 084 BPM P-R Int : 212 ms QRS Dur : 142 ms QT Int : 424 ms P-R-T Axes : 021 -44 023 degrees QTc Int : 501 ms Sinus rhythm with 1st degree A-V block Left axis deviation Right bundle branch block Abnormal ECG When compared with ECG of 15-JAN-2024 19:22, QT has shortened Confirmed by Lev Trejo ([id number]) on 02/04/2024 8:34:52 AM Referred By: Confirmed By:Lve Trejo
[2024-02-04] MEDS: FOLIC ACID 1 MG TAB PO SCH (09:02)
[2024-02-04] MEDS: buPROPion SR 100 MG TABCR PO SCH (09:02)
[2024-02-04] MEDS: ISOSORBIDE MONO EXTENDED REL 30 MG TABCR PO SCH (09:02)
[2024-02-04] MEDS: FUROSEMIDE 40 MG/4 ML VIAL IV SCH (09:03)
[2024-02-04] MEDS: SERTRALINE HCL 50 MG TABLET PO SCH (09:03)
[2024-02-04] MEDS: fentaNYL 12 MCG/HR TDSY TD SCH (09:03)
[2024-02-04] MEDS: SPIRONOLACTONE 25 MG TAB PO SCH (09:03)
[2024-02-04] MEDS: TOPIRAMATE 100 MG TAB PO SCH (09:04)
[2024-02-04] MEDS: ASPIRIN 81 MG ECTAB PO SCH (09:15)
[2024-02-04] MEDS: ENOXAPARIN INJ 40 MG/0.4 ML SYR SQ SCH (11:24)
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
--- NOTE | 2024-02-04 14:48 | Hospitalist Progress Note ---
Date of Service February 04, 2024 Assessment & Plan (1) Acute on chronic diastolic HF (heart failure): Plan: Combination of acute/chronic diastolic and right-sided CHF. Symptomatically improved today. Cont lasix 80mg IV daily; increase to BID dosing for net neg 1.5-2 liters/day. Etiology - recent steroids? dietary? Other? Recheck limited echo to re-eval LV function. Daily labs. (2) Acute on chronic hypoxic respiratory failure: Plan: acute component - suspected to be 2nd to #1 above I do not think she has infectious etiology but can't rule it out 100% CRP checked today - has downtrended from recent hospitalization when she had pneumonia, UTI, etc. COVID negative cont to diurese (3) Right-sided chest pain: Plan: muscular? pulmonary based? doubt GI. troponin rechecked - it is only 0.1 above upper limit of normal. ischemic pain felt unlikely. at risk of PE but does have IVC filter. had dopplers of legs during previous admission - negative. trial of voltaren gel on site of pain on R chest. if pain persists then CTA chest. (4) Chronic pain: Plan: chronic back pain and pain in right distal femur from an inoperable fracture. She is on Fentanyl TD 25mcg, concern for increased sleepiness with this dose Dose decreased to 12.5mcg q3d. Oxycodone PRN. Pt awake/alert today and at her usual neuropsych baseline. (5) Type 2 diabetes mellitus: Plan: Chronic. Stable. Patient with insulin pump in place but does not have extra insulin. Last HgbA1C - 6.9 on 10/18/23. -Hold insulin pump for now -Lantus 15u BID -ISS -Goal blood sugar inpatient 110 - 140 BSGs acceptable at this time (6) Hypothyroidism: Plan: TSH stable 12/2023 Continue Synthroid (7) Chronic obstructive pulmonary disease: Plan: Wheezy on exam today - suspect due to pulmonary edema rather than COPD flare. Was given steroids in the ER. If wheezing persists despite Rx of pulm edema then consider adding steroids back. Continue Duonebs scheduled. Add saline nebs BID. (8) Obesity hypoventilation syndrome: (9) Tracheostomy dependence: (10) Morbid obesity with BMI of 60.0-69.9, adult: Plan: BMI 67 (11) GERD (gastroesophageal reflux disease): Plan: cont PPI (12) Cor pulmonale: Plan: see #1 above (13) S/P IVC filter: (14) DVT prophylaxis: Plan: lovenox 40mg BID Admission and Anticipated Discharge Date Admission Date: February 03, 2024 Subjective saw patient in the ER she is feeling a little better than yesterday - not as short of breath still with copious sputum - white, thick asks for saline nebs as "they really help" c/o right-sided chest wall pain started at home about a week ago worse after meals but denies any heartburn does not hurt with taking deep breaths no substernal pain no left-sided pain Review of Systems Review of Systems: gen - no fevers or chills; appetite - fair cv - see HPI/subjective portion of note; recent worsening edema of legs GI - no abd pain or N/V pulm - cough, congestion, sputum via trach, dyspnea and wheezing Physical Exam Physical Exam: gen - obese, NAD; coughing; nontoxic appearing; no resp distress neck - unable to assess for JVD; trach in place mouth - MMM heart - RRR, s1 s2, no obvious murmur; heart tones distant lungs - diffuse wheezing b/l, mild rales bases, decreased BS bases, no distress chest - nontender to palpation R upper chest wall abd - soft, obese, NT, ND, BS+ ext - <1+ edema b/l, pulses 2+ b/l psych - a/o x 3 Results & Data Results & Data Vital Signs (Past 12 Hours) Vital Signs Pulse Pulse Resp BP BP Pulse Ox O2 Del Method 02/04/24 12:05 70 20 92 Trach Collar 02/04/24 11:30 Trach Collar 02/04/24 11:24 68 18 113/84 94 Trach Collar 02/04/24 07:33 75 02/04/24 07:29 81 22 148/83 H 91 Trach Collar 02/04/24 07:26 81 18 94 Trach Collar O2 Flow Rate FiO2 02/04/24 12:05 6 28 02/04/24 11:30 6 02/04/24 11:24 6 02/04/24 07:33 02/04/24 07:29 02/04/24 07:26 6 28 Laboratory Results Laboratory Results - last 24 hr 02/03/24 02/03/2424 14:40 15:04 16:44 WBC 9.45 RBC 4.59 Hgb 12.4 Hct 41.0 MCV 89.3 MCH 27.0 MCHC 30.2 L RDW Std Deviation 55.1 H RDW Coeff of Amee 17.1 H Plt Count 320 MPV 9.4 Immature Gran % (Auto) 1.6 Neut % (Auto) 70.8 Lymph % (Auto) 12.7 [place] % (Auto) 11.2 Eos % (Auto) 3.2 Baso % (Auto) 0.5 Neut # (Auto) 6.69 H Lymph # (Auto) 1.20 [place] # (Auto) 1.06 H Eos # (Auto) 0.30 Baso # (Auto) 0.05 Immature Gran # (Auto) 0.15 Absolute Nucleated RBC 0.03 Nucleated RBC % (auto) 0.3 Polychromasia 1+ PT 10.9 INR 1.0 VBG pH 7.36 VBG pCO2 65 H VBG pO2 42 VBG HCO3 37 VBG O2 Saturation 61.6 VBG Base Excess 8.8 Sodium 135 L Potassium 3.2 L Chloride 93 L Carbon Dioxide 32 Anion Gap 10 BUN 26 H Creatinine 1.78 H Est Cr Clr Drug Dosing 45.5 Est GFR ( Amer) 33.6 Est GFR (Non-Af Amer) 29.0 BUN/Creatinine Ratio 14.6 Glucose 80 POC Glucose Calcium 9.1 Phosphorus 3.2 Magnesium 2.0 Total Bilirubin 0.5 AST 17 ALT 19 Alkaline Phosphatase 83 Troponin I High Sens 22.3 H 22.5 H B-Natriuretic Peptide 118 H Total Protein 7.6 Albumin 3.5 Globulin 4.1 H Albumin/Globulin Ratio 0.9 Lipase 22 Procalcitonin 0.29 Urine Color Urine Appearance Urine pH Ur Specific [place] Urine Protein Urine Glucose (UA) Urine Ketones Urine Blood Urine Nitrite Urine Bilirubin Urine Urobilinogen Ur Leukocyte Esterase Urine WBC (Auto) Urine RBC (Auto) U Hyaline Cast (Auto) U Epithel Cells (Auto) Urine Bacteria (Auto) Urine Yeast SARS-CoV-2, RNA, NAAT 02/03/24 02/03/24 02/03/24 17:47 23:47 Unknown WBC RBC Hgb Hct MCV MCH MCHC RDW Std Deviation RDW Coeff of Amee Plt Count MPV Immature Gran % (Auto) Neut % (Auto) Lymph % (Auto) [place] % (Auto) Eos % (Auto) Baso % (Auto) Neut # (Auto) Lymph # (Auto) [place] # (Auto) Eos # (Auto) Baso # (Auto) Immature Gran # (Auto) Absolute Nucleated RBC Nucleated RBC % (auto) Polychromasia PT INR VBG pH VBG pCO2 VBG pO2 VBG HCO3 VBG O2 Saturation VBG Base Excess Sodium Potassium Chloride Carbon Dioxide Anion Gap BUN Creatinine Est Cr Clr Drug Dosing Est GFR ( Amer) Est GFR (Non-Af Amer) BUN/Creatinine Ratio Glucose POC Glucose 238 H Calcium Phosphorus Magnesium Total Bilirubin AST ALT Alkaline Phosphatase Troponin I High Sens B-Natriuretic Peptide Total Protein Albumin Globulin Albumin/Globulin Ratio Lipase Procalcitonin Urine Color Yellow Urine Appearance Clear Urine pH 5.0 Ur Specific [place] 1.008 Urine Protein Negative Urine Glucose (UA) 2+ H Urine Ketones Negative Urine Blood Negative Urine Nitrite Negative Urine Bilirubin Negative Urine Urobilinogen Negative Ur Leukocyte Esterase Trace H Urine WBC (Auto) 5-10 H Urine RBC (Auto) 0-4 U Hyaline Cast (Auto) 1-5 U Epithel Cells (Auto) 10-20 H Urine Bacteria (Auto) Negative Urine Yeast Budding A SARS-CoV-2, RNA, NAAT NEGATIVE 02/04/24 02/04/24 02/04/24 04:44 07:25 08:09 WBC 7.99 RBC 4.14 L Hgb 11.2 L Hct 35.9 L MCV 86.7 MCH 27.1 MCHC 31.2 L RDW Std Deviation 52.4 H RDW Coeff of Amee 16.7 H Plt Count 286 MPV 9.3 L Immature Gran % (Auto) Neut % (Auto) Lymph % (Auto) [place] % (Auto) Eos % (Auto) Baso % (Auto) Neut # (Auto) Lymph # (Auto) [place] # (Auto) Eos # (Auto) Baso # (Auto) Immature Gran # (Auto) Absolute Nucleated RBC 0.02 Nucleated RBC % (auto) 0.3 Polychromasia PT INR VBG pH VBG pCO2 VBG pO2 VBG HCO3 VBG O2 Saturation VBG Base Excess Sodium 134 L Potassium 3.6 Chloride 93 L Carbon Dioxide 34 H Anion Gap 7 BUN 28 H Creatinine 1.66 H Est Cr Clr Drug Dosing 48.5 Est GFR ( Amer) 36.6 Est GFR (Non-Af Amer) 31.6 BUN/Creatinine Ratio 16.9 Glucose 194 H POC Glucose 164 H 190 H Calcium 8.6 Phosphorus Magnesium Total Bilirubin AST ALT Alkaline Phosphatase Troponin I High Sens 13.7 D B-Natriuretic Peptide Total Protein Albumin Globulin Albumin/Globulin Ratio Lipase Procalcitonin Urine Color Urine Appearance Urine pH Ur Specific [place] Urine Protein Urine Glucose (UA) Urine Ketones Urine Blood Urine Nitrite Urine Bilirubin Urine Urobilinogen Ur Leukocyte Esterase Urine WBC (Auto) Urine RBC (Auto) U Hyaline Cast (Auto) U Epithel Cells (Auto) Urine Bacteria (Auto) Urine Yeast SARS-CoV-2, RNA, NAAT 02/04/24 11:55 WBC RBC Hgb Hct MCV MCH MCHC RDW Std Deviation RDW Coeff of Amee Plt Count MPV Immature Gran % (Auto) Neut % (Auto) Lymph % (Auto) [place] % (Auto) Eos % (Auto) Baso % (Auto) Neut # (Auto) Lymph # (Auto) [place] # (Auto) Eos # (Auto) Baso # (Auto) Immature Gran # (Auto) Absolute Nucleated RBC Nucleated RBC % (auto) Polychromasia PT INR VBG pH VBG pCO2 VBG pO2 VBG HCO3 VBG O2 Saturation VBG Base Excess Sodium Potassium Chloride Carbon Dioxide Anion Gap BUN Creatinine Est Cr Clr Drug Dosing Est GFR ( Amer) Est GFR (Non-Af Amer) BUN/Creatinine Ratio Glucose POC Glucose 197 H Calcium Phosphorus Magnesium Total Bilirubin AST ALT Alkaline Phosphatase Troponin I High Sens B-Natriuretic Peptide Total Protein Albumin Globulin Albumin/Globulin Ratio Lipase Procalcitonin Urine Color Urine Appearance Urine pH Ur Specific [place] Urine Protein Urine Glucose (UA) Urine Ketones Urine Blood Urine Nitrite Urine Bilirubin Urine Urobilinogen Ur Leukocyte Esterase Urine WBC (Auto) Urine RBC (Auto) U Hyaline Cast (Auto) U Epithel Cells (Auto) Urine Bacteria (Auto) Urine Yeast SARS-CoV-2, RNA, NAAT Diagnostic Findings EKG (obtained after my visit) - NSR, RBBB, no changes from prior EKG PG Care Time/CCT Total # of Minutes Spent Total Time Spent with Patient: Total time spent is greater than 50% in coordination of care (as documented) at patient's floor/unit and/or counseling patient: Coding Level of Care Code 62819 SUB INP/OBS CARE 3/50MIN Diagnoses Acute on chronic diastolic HF (heart failure) I50.33 Acute on chronic hypoxic respiratory failure J96.21 Right-sided chest pain R07.9 Chronic pain G89.29 Type 2 diabetes mellitus E11.9 Hypothyroidism E03.9 Chronic obstructive pulmonary disease J44.1 COPD type: COPD with acute exacerbation Obesity hypoventilation syndrome E66.2 Tracheostomy dependence Z93.0 Morbid obesity with BMI of 60.0-69.9, adult E66.01; Z68.44 GERD (gastroesophageal reflux disease) K21.9 Cor pulmonale I27.81 S/P IVC filter Z95.828 DVT prophylaxis Z29.9 (7) Chronic obstructive pulmonary disease COPD type: COPD with acute exacerbation Qualified Code(s): J44.1 - Chronic obstructive pulmonary disease with (acute) exacerbation
[2024-02-04 17:10] LABS: C Reactive Protein 4.69 mg/dl (0-0.5)
[2024-02-04 17:17] LABS: Troponin I High Sensitivity 14.1 pg/ml (0-14)
[2024-02-04] MEDS: DICLOFENAC SOD 1% GEL 100 GM TUBE EXT SCH (19:23)
[2024-02-04] MEDS: SODIUM CHLOR 7% 4 ML NEB NEB SCH (20:33)
[2024-02-05 05:12] LABS: BUN Creatinine Ratio 19.5 (10-20); Creatinine Clr Calc Pharmacy 50.7 ml/min; Est GFR (African American) 38.5 ml/min; Est GFR (Non-African American) 33.3 ml/min; Potassium 3.1 mmol/L (3.5-5.1)
--- NOTE | 2024-02-05 07:48 | Electrocardiogram Report ---
Test Reason : Blood Pressure : / mmHG Vent. Rate : 073 BPM Atrial Rate : 073 BPM P-R Int : 212 ms QRS Dur : 146 ms QT Int : 458 ms P-R-T Axes : 073 -41 018 degrees QTc Int : 504 ms Sinus rhythm with 1st degree A-V block Left axis deviation Right bundle branch block Possible Lateral infarct , age undetermined Abnormal ECG When compared with ECG of 03-FEB-2024 14:47, No significant change was found Confirmed by Rahul Quiroz ([id number]) on 02/05/2024 7:47:46 AM Referred By: REFERRED SELF Confirmed By:Mike Quiroz
--- NOTE | 2024-02-05 08:11 | XCELERA ---
[id number]
[2024-02-05] MEDS: POTASSIUM CHLORIDE CRTAB 20 MEQ TABCR PO SCH (08:46)
--- NOTE | 2024-02-05 13:35 | Hospitalist Progress Note ---
Date of Service February 05, 2024 Assessment & Plan (1) Acute encephalopathy: Plan: Toxic from narcotics - was ONLY on 25mcg of fentanyl patch at home. Nursing today found both a 12mcg patch AND a 25mcg patch on her skin. The 25mcg patch was removed & discarded. Metabolic - brewing infection? Other? Fentanyl patches REDUCED to 12mcg q3days. Repeat all labs including ammonia level in am. No significant hypercapnia on ABG today. IF altered MS continues consider head imaging. (2) Acute on chronic diastolic HF (heart failure): Plan: Combination of acute/chronic diastolic and right-sided CHF. Cont lasix 80mg IV daily with goal of net neg 1.5-2 liters/day. Etiology - recent steroids last admission for gout? dietary indiscretion? not taking meds at home? Other? Rechecked limited echo to re-eval LV function -- unchanged from her prior echo. Daily labs. (3) Acute on chronic hypoxic respiratory failure: Plan: acute component - suspected to be 2nd to #2 above I do not think she has infectious etiology but can't rule it out 100%; however, CRP is only modestly elevated, and procal is negative COVID negative at admission [facility] last admission was negative Sputum cx - contaminated D-dimer minimally elevated consider CTA chest in am if creatinine cont to improve formal consult placed to pulmonology for any other recommendations cont with scheduled bronchodilators, saline nebs, pulmicort respules BID added IV steroids due to reported h/o asthma/COPD consider mucomyst if secretions remain thick despite all of the above cont to diurese (4) Right-sided chest pain: Plan: suspect muscular - reproducible on exam, and fairly constant in nature could be pulmonary based but less likely doubt GI. troponin rechecked today and again remains very low despite constant pain. coronary ischemia unlikely. at risk of PE but does have IVC filter. had dopplers of legs during previous admission - negative. cont voltaren gel on site of pain on R chest. as noted above consider CTA chest in light of modestly elevated d-dimer (but the pain is not pleuritic). (5) Chronic pain: Plan: chronic back pain and pain in right distal femur from an inoperable fracture. She is on Fentanyl TD 25mcg, concern for increased sleepiness with this dose Dose decreased to 12.5mcg q3d. Oxycodone PRN. Nursing staff today found a 25mcg patch AND 12mcg patch on her skin. As soon as this was found the 25mcg patch was immediately removed. This could be the reason for the increased altered MS but I would have expected her to have respiratory acidosis from such. (6) Type 2 diabetes mellitus: Plan: pharmacy glycemic consult placed due to anticipation of high BSGs while on high- dose sugars. is on insulin pump at home. (7) Hypothyroidism: Plan: TSH stable 12/2023 Continue Synthroid (8) Chronic obstructive pulmonary disease: Plan: Again severe wheezing on exam today - suspect due to pulmonary edema; COPD flare also possible (records indicate COPD as dx, but outpatient pulm notes indicate dx is not confirmed). Continue Duonebs scheduled. Continue saline nebs BID. Add pulmicort BID. Add performerist BID. Added steroids 60mg q12h. Consider mucomyst if secretions cont to be tenacious. (9) Obesity hypoventilation syndrome: Plan: known dx with trach in place (10) Tracheostomy dependence: (11) Morbid obesity with BMI of 60.0-69.9, adult: Plan: BMI 67 (12) GERD (gastroesophageal reflux disease): Plan: cont PPI (13) Cor pulmonale: Plan: see above (14) S/P IVC filter: (15) DVT prophylaxis: Plan: lovenox 40mg BID (16) Acute respiratory alkalosis: Plan: ABG obtained after my visit with her - acute respiratory alkalosis present. Exact etiology uncertain. Check ammonia level in am given altered MS, myoclonic jerks, tachypnea - hepatic encephalopathy can cause all of this. Resp distress with resulting tachypnea from pulmonary edema, wheezing, etc? Acute PE? Other? Combo of factors? Consider advanced imaging in form of CTA chest tomorrow am if creatinine is stable. (17) Hypokalemia: Plan: Replace with K-dur 40meq TID x 3 doses. Mag level wnl. Repeat BMP am. Plan daughter Oscar updated by phone this evening she confirms that her mother's fentanyl dose was ONLY 25mcg every 3 days, not 37mcg care d/w Dr Duarte from pulmonary by phone Admission and Anticipated Discharge Date Admission Date: February 03, 2024 Subjective tele overnight wnl patient very sleepy during my visit would arouse and answer questions but MUCH more sleepy than her baseline during the visit had copious amounts of myoclonic jerks of arms/legs reports ongoing dyspnea - improved from admission - but still present coughing with thick white secretions appetite fair right upper chest wall discomfort still present not sleeping well patient (and daughter) confirm her fentanyl patch was recently increased from 12mcg q3d to 25mcg q3d staff found a 12mcg patch on her one leg today, and a 25mcg patch on the other leg the 25mcg patch was removed & discarded Review of Systems Review of Systems: gen - feels poorly, tired, poor appetite cv - no substernal cp, no left-sided chest pain pulm - no purulent sputum; no hemoptysis GI - no abd pain/nausea/emesis Physical Exam Physical Exam: gen - obese, coughing, sleepy, myoclonic jerks present neck - unable to assess for JVD; trach in place mouth - MMM heart - RRR, s1 s2, no obvious murmur; heart tones distant lungs - diffuse wheezing b/l - no change from yesterday's exam; minimal rales bases, decreased BS bases; tachypnea with subcostal retractions chest - tender to palpation R upper chest wall abd - soft, obese, NT, ND, BS+ ext - trace edema b/l, pulses 2+ b/l psych - a/o x 3 Results & Data Results & Data Vital Signs (Past 12 Hours) Vital Signs Temp Pulse Pulse Pulse Resp BP Pulse Ox 02/05/24 11:35 36.9 C 77 18 122/72 93 02/05/24 11:34 78 16 92 02/05/24 09:45 02/05/24 07:43 83 18 98 02/05/24 07:41 36.7 C 80 18 122/75 93 02/05/24 07:04 78 02/05/24 05:53 36.7 C 82 20 130/71 90 O2 Del Method O2 Flow Rate FiO2 02/05/24 11:35 Trach Collar 6 02/05/24 11:34 Nebulizer, Trach Collar 6 28 02/05/24 09:45 Trach Collar 6 02/05/24 07:43 Trach Collar 30 02/05/24 07:41 Trach Collar 6 02/05/24 07:04 02/05/24 05:53 Room Air, Trach Collar Laboratory Results Laboratory Results - last 24 hr 02/04/24 02/04/24 02/04/24 16:32 16:58 21:13 Sodium Potassium Chloride Carbon Dioxide Anion Gap BUN Creatinine Est Cr Clr Drug Dosing Est GFR ( Amer) Est GFR (Non-Af Amer) BUN/Creatinine Ratio Glucose POC Glucose 173 H 182 H Calcium Troponin I High Sens 14.1 H C-Reactive Protein 4.69 H 02/05/24 02/05/24 02/05/24 04:43 08:01 12:20 Sodium 135 L Potassium 3.1 L Chloride 91 L Carbon Dioxide 37 H Anion Gap 7 BUN 31 H Creatinine 1.59 H Est Cr Clr Drug Dosing 50.7 Est GFR ( Amer) 38.5 Est GFR (Non-Af Amer) 33.3 BUN/Creatinine Ratio 19.5 Glucose 177 H POC Glucose 159 H 223 H Calcium 9.0 Troponin I High Sens C-Reactive Protein PG Care Time/CCT Total # of Minutes Spent Total Time Spent with Patient: Total time spent is greater than 50% in coordination of care (as documented) at patient's floor/unit and/or counseling patient: Coding Level of Care Code 82268 SUB INP/OBS CARE 3/50MIN Diagnoses Acute encephalopathy G93.40 Acute on chronic diastolic HF (heart failure) I50.33 Acute on chronic hypoxic respiratory failure J96.21 Right-sided chest pain R07.9 Chronic pain G89.29 Type 2 diabetes mellitus E11.9 Hypothyroidism E03.9 Chronic obstructive pulmonary disease J44.1 COPD type: COPD with acute exacerbation Obesity hypoventilation syndrome E66.2 Tracheostomy dependence Z93.0 Morbid obesity with BMI of 60.0-69.9, adult E66.01; Z68.44 GERD (gastroesophageal reflux disease) K21.9 Cor pulmonale I27.81 S/P IVC filter Z95.828 DVT prophylaxis Z29.9 Acute respiratory alkalosis E87.3 Hypokalemia E87.6 (8) Chronic obstructive pulmonary disease COPD type: COPD with acute exacerbation Qualified Code(s): J44.1 - Chronic obstructive pulmonary disease with (acute) exacerbation
[2024-02-05 14:26] LABS: Base Excess ABG 15.3 mEq/L (-9-1.8); HCO3 ABG 41 mmol/L (19-24); Oxygen Saturation ABG 95.2 % (90-95); PCO2 ABG 51 mmHg (35-46); PO2 ABG 67 mmHg (80-95)
[2024-02-05 14:28] LABS: Allen Test Pos (Pos)
[2024-02-05 14:29] LABS: pH ABG 7.51 (7.35-7.45)
[2024-02-05] MEDS ORDERED: PHARMACY GLYCEMIC MGMT CONSULT PRN (14:31)
[2024-02-05 15:01] LABS: Magnesium 1.8 mg/dl (1.7-2.4)
--- NOTE | 2024-02-05 15:07 | XRay Report ---
XR chest 1V portable HISTORY: resp distress COMPARISON: Chest 02/03/2024. FINDINGS: Tracheostomy tube is in good position. The heart remains enlarged. Mild pulmonary vascular congestion persists. Trace bilateral pleural effusions are again noted. No new focal lung consolidati ons to suggest a pneumonia. No acute fractures. IMPRESSION: Cardiomegaly and mild pulmonary vascular congestion. This is similar to the prior study. ACT 112: Negative or not required by law. Electronically signed by: Geo Arenas M.D. 02/05/2024 3:06 PM
[2024-02-05 15:19] LABS: D Dimer 710 ug/L FEU (0-500)
[2024-02-05] MEDS: methylPREDNISolone 60 MG in SYRINGE 0 ML IV SCH (16:44)
[2024-02-05] MEDS: acetaZOLAMIDE 250 MG TAB PO ONE (17:44)
[2024-02-05] MEDS: LANTUS PER UNIT CHARGE SQ ONE (17:47)
[2024-02-05] MEDS: BUDESONIDE 0.5 MG/2 ML VIAL (PULMICORT) NEB SCH (19:09)
[2024-02-05] MEDS: FORMOTEROL 20 MCG/2 ML VIAL INH SCH (19:09)
[2024-02-06] MEDS: INSULIN ASPART PER UNIT CHARGE SC SCH (00:28)
[2024-02-06] MEDS: methylPREDNISolone 60 MG in SYRINGE 0 ML IV SCH ×2 (05:31→17:35)
[2024-02-06] MEDS: BENZONATATE 100 MG CAPSULE PO PRN (08:38)
[2024-02-06] MEDS: LANTUS PER UNIT CHARGE SC ONE (08:46)
--- NOTE | 2024-02-06 09:28 | Pharmacy Report ---
Pharmacy Glycemic Short Note 2 - Date of Service February 06, 2024 - Glycemic Short BSG Results (Last 24 hours): 02/05/24 02/05/24 02/05/24 12:20 17:26 20:27 POC Glucose 223 H 167 H 195 H 02/06/24 02/06/24 02/06/24 00:25 03:40 08:12 POC Glucose 228 H 193 H 163 H OUTPATIENT ANTIDIABETIC REGIMEN: * Novolog insulin pump * per last DM educator note in December 2023: * -basal: 106.5 units/day * -Carb ratio: 1.8 from 9553-1227, 3.1 from 0997-9410 * -SF: 10 from 1955-9177, 17 from 8830-8359 (BSG > 150 mg/dL) HbA1c: 8.1% (02/06/24) ASSESSMENT: * DC is a 68 year old female w/ T2DM, well known to pharmacy glycemic service due to multiple inpatient consultations * Admitted on 02/03/24 for acute encephalopathy (multiple possible etiologies at this time) * Pharmacy consulted for glycemic management yesterday (02/04) afternoon * Ordered methylprednisolone 60 mg IV BID, will schedule Lantus with steroids PLAN FOR INPATIENT GLYCEMIC CONTROL: * Hold insulin pump * Basal insulin * Lantus 60 units SQ BID (w/ steroids) * Bolus insulin * NovoLog per scale ACHS or Q6hrs while NPO * Goal Range: Low 110 mg/dL - High 140 mg/dL * Correction Factor: 8 mg/dL/unit * Nutritional / Prandial insulin per carb ratio of 1 unit per 1.5 grams CHO consumed
[2024-02-06 09:59] LABS: Estimated Average Glucose 186 mg/dl; Hemoglobin A1C 8.1 % (4.5-5.6)
[2024-02-06 10:00] LABS: Hematocrit (blood only) 40.5 % (37.0-47.0); Hemoglobin 12.6 g/dl (12.0-16.0); Mean Corpuscular Hemoglobin 27.2 pg (25.0-34.0); Mean Corpuscular Hgb Conc 31.1 g/dL (32.0-36.0); Mean Corpuscular Volume 87.5 fL (80.0-100.0); Mean Platelet Volume 9.8 fL (9.4-12.4); Platelet Count 284 K/uL (130-400); RDW Coefficient of Variation 16.8 % (11.5-14.5); RDW Standard Deviation 52.8 fL (36.4-46.3); Red Blood Count 4.63 M/uL (4.20-5.40); White Blood Count 10.17 K/ul (4.8-10.8)
[2024-02-06 10:33] LABS: BUN Creatinine Ratio 22.3 (10-20); Calcium 9.1 mg/dl (8.6-10.3); Creatinine Clr Calc Pharmacy 53.9 ml/min; Est GFR (Non-African American) 36.3 ml/min; Potassium 4.1 mmol/L (3.5-5.1)
[2024-02-06] MEDS: LANTUS PER UNIT CHARGE SC SCH (17:34)
--- NOTE | 2024-02-06 17:37 | Hospitalist Progress Note ---
Date of Service February 06, 2024 Assessment & Plan (1) Acute encephalopathy: Plan: resolved likely was combination of toxic effects from narcotics and metabolic from hypoxia and alkalotic state. was ONLY on 25mcg of fentanyl patch at home. Nursing found both a 12mcg patch AND a 25mcg patch on her skin. The 25mcg patch was removed & discarded yesterday. Moving forward will only use 12mcg patch. Ammonia level wnl today. No evidence of any infectious process. ABG yesterday w/o significant hypercapnia. (2) Acute on chronic diastolic HF (heart failure): Plan: Improving. Combination of acute/chronic diastolic and right-sided CHF. Cont lasix 80mg IV daily with goal of net neg 1.5-2 liters/day. Etiology - recent steroids last admission for gout? dietary indiscretion? not taking meds at home? Other? Rechecked limited echo to re-eval LV function -- unchanged from her prior echo. Daily labs. gave diamox 250mg x 1 yesterday for significant alkalosis. will give an additional dose of such today. (3) Acute on chronic hypoxic respiratory failure: Plan: acute component - suspected to be 2nd to #2 above I do not think she has infectious etiology but can't rule it out 100%; however, CRP is only modestly elevated, and procal is negative COVID negative at admission [facility] last admission was negative Sputum cx - contaminated D-dimer minimally elevated but suspicion for PE is low (had neg dopplers of legs in late December, has IVC filter, etc) consider CTA chest, however, if respiratory status does not return to baseline formal consult placed to pulmonology for any other recommendations - consult pending cont with scheduled bronchodilators, saline nebs, pulmicort respules BID added IV steroids due to reported h/o asthma/COPD; wheezing MUCH improved; lower steroids to 30mg q12h; Dr Duarte suggested to use steroids for quick course only consider mucomyst if secretions remain thick despite all of the above but she reports her sputum is significantly improved today cont to diurese (4) Right-sided chest pain: Plan: suspect muscular - reproducible on exam, and fairly constant in nature could be pulmonary based but less likely doubt GI but she feels strongly it is due to GERD troponin checked multiple times - scantly above upper limit of normal. coronary ischemia unlikely. at risk of PE but does have IVC filter. had dopplers of legs during previous admission - negative. cont voltaren gel on site of pain on R chest. gave pepcid 20mg IV x 1 at her request since she feels it is GERD as noted above consider CTA chest in light of modestly elevated d-dimer (but the pain is not pleuritic and she states the pain is superficial). no recent trauma or fall to suggest rib fracture (5) Chronic pain: Plan: chronic back pain and pain in right distal femur from an inoperable fracture. She was on Fentanyl patch 25mcg q3d at home (dose was recently increased from 12 to 25 patch in December) daughter expressed concern for increased sleepiness with this dose at time of this admission we reduced her total dose to 12mcg patch every 3 days unfortunately Nursing staff on 02/05/24 found a 25mcg patch AND 12mcg patch on her skin. As soon as this was found the 25mcg patch was immediately removed. This could be the reason for the increased altered MS since admission. mental status much better today. (6) Type 2 diabetes mellitus: Plan: pharmacy glycemic consult placed due to high BSGs while on high-dose steroids. is on insulin pump at home. (7) Hypothyroidism: Plan: TSH stable 12/2023 Continue Synthroid (8) Chronic obstructive pulmonary disease: Plan: Wheezing - suspect due to pulmonary edema ("cardiac wheezing") COPD flare also possible (records indicate COPD as dx, but outpatient pulm notes indicate dx is not confirmed). Continue Duonebs scheduled. Continue saline nebs BID. Continue pulmicort BID. Continue performerist BID. Added steroids 60mg q12h yesterday -- reduce to 30mg q12h today. Consider mucomyst if secretions cont to be tenacious. (9) Obesity hypoventilation syndrome: Plan: known dx with trach in place (10) Tracheostomy dependence: Plan: metal trach (11) Morbid obesity with BMI of 60.0-69.9, adult: Plan: BMI 67 (12) GERD (gastroesophageal reflux disease): Plan: cont PPI add a dose of pepcid x 1 (13) Cor pulmonale: Plan: see above (14) S/P IVC filter: (15) DVT prophylaxis: Plan: lovenox 40mg BID (16) Acute respiratory alkalosis: Plan: as seen on abg yesterday etiology uncertain but patient had copious mucous yesterday and perhaps mucous plugs after she passed the mucous her respiratory rate improved significantly and her exam was better ammonia level wnl consider advanced imaging in form of CTA chest tomorrow if she fails to improve or worsens (17) Hypokalemia: Plan: Replaced resolved. Plan daughter Oscar updated by phone yesterday evening PT, OT [place] requested progressing Admission and Anticipated Discharge Date Admission Date: February 03, 2024 Subjective tele overnight wnl patient feels "Much better" today myoclonic jerks are improved; not fully resolved but improved dyspnea, cough, sputum production MUCH improved eating improved with more robust appetite she feels more awake and alert today Review of Systems Review of Systems: cv - still with constant right sided chest wall discomfort; she thinks it is reflux related pulm - all symptoms improved GI - no abd pain or N/V gen - no fevers; better energy today Physical Exam Physical Exam: gen - looks much better today; more awake/alert; obese; no significant coughing; myoclonic jerks improved neck - unable to assess for JVD; trach in place mouth - MMM heart - RRR, s1 s2, no obvious murmur; heart tones distant lungs - diffuse wheezing resolved; just minor rales bases b/l; tachypnea and resp distress resolved chest - tender to palpation R upper chest wall abd - soft, obese, NT, ND, BS+ ext - trace edema b/l, pulses 2+ b/l psych - a/o x 3 musculo - right leg is shorter than left leg Results & Data Results & Data Vital Signs (Past 12 Hours) Vital Signs Temp Pulse Pulse Resp BP Pulse Ox O2 Del Method 02/06/24 15:33 70 20 96 Trach Collar 02/06/24 14:56 36.6 C 84 18 113/61 92 Trach Collar 02/06/24 14:01 70 02/06/24 11:21 37.3 C 72 14 139/74 92 Trach Collar 02/06/24 11:13 72 22 92 Trach Collar 02/06/24 10:00 Trach Collar 02/06/24 07:38 36.6 C 66 14 115/71 90 Room Air 02/06/24 07:18 68 24 98 Trach Collar 02/06/24 07:00 62 O2 Flow Rate FiO2 02/06/24 15:33 6 28 02/06/24 14:56 6 02/06/24 14:01 02/06/24 11:21 02/06/24 11:13 6 28 02/06/24 10:00 02/06/24 07:38 02/06/24 07:18 6 28 02/06/24 07:00 Laboratory Results Laboratory Results - last 24 hr 02/06/24 02/06/24 02/06/24 08:12 09:37 11:50 WBC 10.17 RBC 4.63 Hgb 12.6 Hct 40.5 MCV 87.5 MCH 27.2 MCHC 31.1 L RDW Std Deviation 52.8 H RDW Coeff of Amee 16.8 H Plt Count 284 MPV 9.8 Sodium 132 L Potassium 4.1 D Chloride 91 L Carbon Dioxide 33 H Anion Gap 8 BUN 33 H Creatinine 1.48 H Est Cr Clr Drug Dosing 53.9 Est GFR ( Amer) 42.0 Est GFR (Non-Af Amer) 36.3 BUN/Creatinine Ratio 22.3 H Glucose 226 H POC Glucose 163 H 225 H Estimat Average Glucose 186 Hemoglobin A1c 8.1 H Calcium 9.1 Ferritin 92.0 Ammonia 31.0 PG Care Time/CCT Total # of Minutes Spent Total Time Spent with Patient: Total time spent is greater than 50% in coordination of care (as documented) at patient's floor/unit and/or counseling patient: Coding Level of Care Code 84304 SUB INP/OBS CARE 2/35MIN Diagnoses Acute encephalopathy G93.40 Acute on chronic diastolic HF (heart failure) I50.33 Acute on chronic hypoxic respiratory failure J96.21 Right-sided chest pain R07.9 Chronic pain G89.29 Type 2 diabetes mellitus E11.9 Hypothyroidism E03.9 Chronic obstructive pulmonary disease J44.1 COPD type: COPD with acute exacerbation Obesity hypoventilation syndrome E66.2 Tracheostomy dependence Z93.0 Morbid obesity with BMI of 60.0-69.9, adult E66.01; Z68.44 GERD (gastroesophageal reflux disease) K21.9 Cor pulmonale I27.81 S/P IVC filter Z95.828 DVT prophylaxis Z29.9 Acute respiratory alkalosis E87.3 Hypokalemia E87.6 (8) Chronic obstructive pulmonary disease COPD type: COPD with acute exacerbation Qualified Code(s): J44.1 - Chronic obstructive pulmonary disease with (acute) exacerbation
[2024-02-06] MEDS: FAMOTIDINE 20MG IV PUSH 20 MG/5 ML SYR IV STA (18:04)
[2024-02-06] MEDS: acetaZOLAMIDE 250 MG TAB PO ONE (18:28)
[2024-02-06] MEDS ORDERED: LANTUS PER UNIT CHARGE SC SCH (21:00)
[2024-02-07] MEDS: methylPREDNISolone 30 MG in SYRINGE 0 ML IV SCH (06:10)
[2024-02-07 07:24] LABS: Calcium 9.1 mg/dl (8.6-10.3); Creatinine Clr Calc Pharmacy 56.5 ml/min; Est GFR (African American) 44.6 ml/min; Est GFR (Non-African American) 38.5 ml/min; Potassium 3.6 mmol/L (3.5-5.1)
[2024-02-07] MEDS: POTASSIUM CHLORIDE CRTAB 20 MEQ TABCR PO SCH (09:38)
--- NOTE | 2024-02-07 12:47 | Pharmacy Report ---
Pharmacy Glycemic Short Note 2 - Date of Service February 07, 2024 - Glycemic Short BSG Results (Last 24 hours): 02/06/24 02/06/24 02/07/24 17:08 20:25 06:40 Glucose 181 H POC Glucose 228 H 184 H 02/07/24 02/07/24 08:06 11:54 Glucose POC Glucose 157 H 223 H OUTPATIENT ANTIDIABETIC REGIMEN: * Novolog insulin pump * per last DM educator note in December 2023: * -basal: 106.5 units/day * -Carb ratio: 1.8 from 5351-6250, 3.1 from 8411-3670 * -SF: 10 from 8075-6984, 17 from 8590-6592 (BSG > 150 mg/dL) HbA1c: 8.1% (02/06/24) ASSESSMENT: 02/07/24: * Blood sugars elevated yesterday, [phone] mg/dL w/ fasting BSG of 157 mg/dL this morning * Received 250 units of insulin (120 units of basal and 130 units of prandial/correctional bolus) * Steroids decreased to methylprednisolone 30 mg IV BID * Despite elevations - will continue same insulin dosing today with decrease in steroids * If still elevated, then will increase tomorrow 02/06/24: * DC is a 68 year old female w/ T2DM, well known to pharmacy glycemic service due to multiple inpatient consultations * Admitted on 02/03/24 for acute encephalopathy (multiple possible etiologies at this time) * Pharmacy consulted for glycemic management yesterday (02/04) afternoon * Ordered methylprednisolone 60 mg IV BID, will schedule Lantus with steroids PLAN FOR INPATIENT GLYCEMIC CONTROL: * Hold insulin pump * Basal insulin * Lantus 60 units SQ BID (w/ steroids) * Bolus insulin * NovoLog per scale ACHS or Q6hrs while NPO * Goal Range: Low 110 mg/dL - High 140 mg/dL * Correction Factor: 8 mg/dL/unit * Nutritional / Prandial insulin per carb ratio of 1 unit per 1.5 grams CHO consumed
--- NOTE | 2024-02-07 16:47 | Hospitalist Progress Note ---
Date of Service February 07, 2024 Assessment & Plan (1) Acute on chronic diastolic HF (heart failure): Plan: Improving. Combination of acute/chronic diastolic and right-sided CHF. Appears that weight was up at time of last discharge, possibly related to steroids for gout? Rechecked limited echo to re-eval LV function -- unchanged from her prior echo. gave diamox 250mg 02/04, 02/05 for significant alkalosis. appears close to euvolemic and O2 requirement near baseline (6L), continue lasix 80 mg IV daily for now -continue spironolactone -oral lasix for discharge -AM BMP (2) Acute encephalopathy: Plan: resolved likely was combination of toxic effects from narcotics and metabolic from hypoxia and alkalotic state. ammonia wnl, abg wthout hypercarbia was ONLY on 25mcg of fentanyl patch at home. Nursing found both a 12mcg patch AND a 25mcg patch on her skin 02/05. The 25mcg patch was removed & discarded. Moving forward will only use 12mcg patch. (3) Acute on chronic hypoxic respiratory failure: Plan: Primarily heart failure exacerbation, possible acute exacerbation of COPD I do not think she has infectious etiology but can't rule it out 100%; however, CRP is only modestly elevated, and procal is negative COVID negative at admission [facility] last admission was negative Sputum cx - contaminated D-dimer minimally elevated but suspicion for PE is low (had neg dopplers of legs in late December, has IVC filter, etc) Seems to be significantly improved cont with scheduled bronchodilators, saline nebs, pulmicort respules BID minimal wheezing today, decrease steroids to prednisone 20 mg x 5 days (4) Right-sided chest pain: Plan: suspect muscular - reproducible on exam, and fairly constant in nature could be pulmonary based but less likely doubt GI but she feels strongly it is due to GERD troponin checked multiple times - scantly above upper limit of normal. coronary ischemia unlikely. at risk of PE but does have IVC filter. had dopplers of legs during previous admission - negative. cont voltaren gel on site of pain on R chest. gave pepcid 20mg IV x 1 at her request since she feels it is GERD as noted above consider CTA chest in light of modestly elevated d-dimer (but the pain is not pleuritic and she states the pain is superficial). no recent trauma or fall to suggest rib fracture (5) Chronic pain: Plan: chronic back pain and pain in right distal femur from an inoperable fracture. She was on Fentanyl patch 25mcg q3d at home (dose was recently increased from 12 to 25 patch in December) daughter expressed concern for increased sleepiness with this dose at time of this admission we reduced her total dose to 12mcg patch every 3 days (6) Type 2 diabetes mellitus: Plan: pharmacy glycemic consult placed due to high BSGs while on high-dose steroids. is on insulin pump at home. (7) Hypothyroidism: Plan: TSH stable 12/2023 Continue Synthroid (8) Chronic obstructive pulmonary disease: Plan: Wheezing - suspect due to pulmonary edema ("cardiac wheezing") COPD flare also possible (records indicate COPD as dx, but outpatient pulm notes indicate dx is not confirmed). see above (9) Obesity hypoventilation syndrome: Plan: known dx with trach in place (10) Tracheostomy dependence: Plan: metal trach (11) Morbid obesity with BMI of 60.0-69.9, adult: Plan: BMI 67 (12) GERD (gastroesophageal reflux disease): Plan: cont PPI add a dose of pepcid x 1 (13) Cor pulmonale: Plan: see above (14) S/P IVC filter: (15) DVT prophylaxis: Plan: lovenox 40mg BID (16) Acute respiratory alkalosis: Plan: as seen on abg BMP improved with diamox (17) Hypokalemia: Plan: Replaced resolved. Plan daughter Oscar updated by phone 02/04 PT, OT [place] 02/06 - sat EOB, did not attempt stand/transfer, refused use of lift normally can help transfer at home with her good (left) leg Admission and Anticipated Discharge Date Admission Date: February 03, 2024 Subjective shortness of breath and hypoxia have improved having vaginal/vulvar itching c/w candidiasis no confusion Physical Exam 2 Physical Exam: PHYSICAL EXAMINATION Last 24h vital signs reviewed, see documentation in flowsheet General: comfortable appearing, no distress, awake alert sitting in bed HEENT: Normocephalic, atraumatic, pupils round and equal, sclerae anicteric, no conjunctival injection, moist mucus membranes trach present in anterior neck, no excessive secretions Lungs: Normal respiratory effort. Clear to auscultation bilaterally anteriorly. mild expiratory wheezing right lower posterior field. diminished in both bases with very mild crackles Heart: Regular rate and rhythm, no murmurs. No JVD Abdomen: Soft, nontender, nondistended. Bowel sounds present. Extremities: Warm, dry, well-perfused. 1+ extremity edema. Neuro: Alert and oriented x 4, face symmetric, moves 4 extremities well Psych: Normal affect and behavior Results & Data Results & Data Vital Signs (Past 12 Hours) Vital Signs Temp Pulse Pulse Resp BP Pulse Ox O2 Del Method 02/07/24 16:29 79 02/07/24 15:31 84 96 Trach Collar 02/07/24 15:10 36.8 C 64 18 119/67 99 Room Air 02/07/24 11:28 36.7 C 77 20 130/66 96 Room Air 02/07/24 11:24 86 20 94 Trach Collar 02/07/24 08:00 Trach Collar 02/07/24 07:56 36.4 C L 63 18 131/73 96 Room Air 02/07/24 07:22 63 02/07/24 07:22 62 95 Trach Collar O2 Flow Rate FiO2 02/07/24 16:29 02/07/24 15:31 7 02/07/24 15:10 02/07/24 11:28 02/07/24 11:24 02/07/24 08:00 7 02/07/24 07:56 02/07/24 07:22 02/07/24 07:22 7 28 Laboratory Results 02/06/24 09:37 02/07/24 06:40 PG Care Time/CCT Total # of Minutes Spent Total Time Spent with Patient: Total time spent is greater than 50% in coordination of care (as documented) at patient's floor/unit and/or counseling patient: Coding Level of Care Code 05015 SUB INP/OBS CARE 2/35MIN Diagnoses Acute on chronic diastolic HF (heart failure) I50.33 Acute encephalopathy G93.40 Acute on chronic hypoxic respiratory failure J96.21 Right-sided chest pain R07.9 Chronic pain G89.29 Type 2 diabetes mellitus E11.9 Hypothyroidism E03.9 Chronic obstructive pulmonary disease J44.1 COPD type: COPD with acute exacerbation Obesity hypoventilation syndrome E66.2 Tracheostomy dependence Z93.0 Morbid obesity with BMI of 60.0-69.9, adult E66.01; Z68.44 GERD (gastroesophageal reflux disease) K21.9 Cor pulmonale I27.81 S/P IVC filter Z95.828 DVT prophylaxis Z29.9 Acute respiratory alkalosis E87.3 Hypokalemia E87.6 (8) Chronic obstructive pulmonary disease COPD type: COPD with acute exacerbation Qualified Code(s): J44.1 - Chronic obstructive pulmonary disease with (acute) exacerbation
[2024-02-07] MEDS: FLUCONAZOLE 50 MG TAB PO ONE (18:20)
[2024-02-08 06:51] LABS: Creatinine Clr Calc Pharmacy 47.8 ml/min; Est GFR (African American) 36.9 ml/min; Est GFR (Non-African American) 31.8 ml/min
[2024-02-08] MEDS ORDERED: LANTUS PER UNIT CHARGE SC SCH (09:00)
[2024-02-08] MEDS: predniSONE 20 MG TAB PO SCH (09:10)
[2024-02-08] MEDS: LANTUS PER UNIT CHARGE SC SCH ×2 (09:30→21:07)
--- NOTE | 2024-02-08 10:39 | Pharmacy Report ---
Pharmacy Glycemic Short Note 2 - Date of Service February 08, 2024 - Glycemic Short BSG Results (Last 24 hours): 02/07/24 02/07/24 02/07/24 11:54 16:27 20:25 POC Glucose 223 H 198 H 149 H 02/08/24 08:04 POC Glucose 84 OUTPATIENT ANTIDIABETIC REGIMEN: * Novolog insulin pump * per last DM educator note in December 2023: * -basal: 106.5 units/day * -Carb ratio: 1.8 from 5833-7431, 3.1 from 5922-2588 * -SF: 10 from 5235-4033, 17 from 9851-7229 (BSG > 150 mg/dL) HbA1c: 8.1% (02/06/24) ASSESSMENT: 02/08/24: * Received 285 units of insulin yesterday (120 units of basal and 165 units of prandial/correctional bolus) * Steroids reduced yesterday (only one dose of methylprednisolone 30 mg IV given) and changed to prednisone daily * 60 units of Lantus was still given last evening despite dose instruction to call pharmacy if discontinued * Fasting blood sugar of 84 mg/dL this morning - likely related to full basal dose in evening despite IV steroid discontinuation * Will give significantly reduced basal dose today with prednisone 20 mg PO daily * Maintain aggressive Novolog parameters for now, will loosen if needed 02/07/24: * Blood sugars elevated yesterday, [phone] mg/dL w/ fasting BSG of 157 mg/dL this morning * Received 250 units of insulin (120 units of basal and 130 units of prandial/correctional bolus) * Steroids decreased to methylprednisolone 30 mg IV BID * Despite elevations - will continue same insulin dosing today with decrease in steroids * If still elevated, then will increase tomorrow 02/06/24: * DC is a 68 year old female w/ T2DM, well known to pharmacy glycemic service du e to multiple inpatient consultations * Admitted on 02/03/24 for acute encephalopathy (multiple possible etiologies at this time) * Pharmacy consulted for glycemic management yesterday (02/04) afternoon * Ordered methylprednisolone 60 mg IV BID, will schedule Lantus with steroids PLAN FOR INPATIENT GLYCEMIC CONTROL: * Hold insulin pump * Basal insulin * Lantus 30 units SC daily w/ prednisone * Lantus 0-10 units SC HS (10 units if 160 mg/dL or above) * Bolus insulin * NovoLog per scale ACHS or Q6hrs while NPO * Goal Range: Low 110 mg/dL - High 140 mg/dL * Correction Factor: 8 mg/dL/unit * Nutritional / Prandial insulin per carb ratio of 1 unit per 1.5 grams CHO consumed
--- NOTE | 2024-02-08 17:53 | Hospitalist Progress Note ---
Date of Service February 08, 2024 Assessment & Plan (1) Acute on chronic diastolic HF (heart failure): Plan: Improving. Combination of acute/chronic diastolic and right-sided CHF. Appears that weight was up at time of last discharge, possibly related to steroids for gout? Rechecked limited echo to re-eval LV function -- unchanged from her prior echo. gave diamox 250mg 02/04, 02/05 for significant alkalosis. appears euvolemic and O2 requirement near baseline (6L), Cr inflected up to 1.6 today -continue spironolactone -resume oral lasix 80 mg daily with bid potassium, home regimen -AM BMP (2) Acute encephalopathy: Plan: resolved likely was combination of toxic effects from narcotics and metabolic from hypoxia and alkalotic state. ammonia wnl, abg wthout hypercarbia was ONLY on 25mcg of fentanyl patch at home. Nursing found both a 12mcg patch AND a 25mcg patch on her skin 02/05. The 25mcg patch was removed & discarded. Moving forward will only use 12mcg patch. (3) Acute on chronic hypoxic respiratory failure: Plan: Primarily heart failure exacerbation, possible acute exacerbation of COPD I do not think she has infectious etiology but can't rule it out 100%; however, CRP is only modestly elevated, and procal is negative COVID negative at admission [facility] last admission was negative Sputum cx - contaminated D-dimer minimally elevated but suspicion for PE is low (had neg dopplers of legs in late December, has IVC filter, etc) Seems to be significantly improved cont with scheduled bronchodilators, saline nebs, pulmicort respules BID no wheezing today, steroids to prednisone 20 mg x 5 days (4) Right-sided chest pain: Plan: suspect muscular - reproducible on exam, and fairly constant in nature could be pulmonary based but less likely doubt GI but she feels strongly it is due to GERD troponin checked multiple times - scantly above upper limit of normal. coronary ischemia unlikely. at risk of PE but does have IVC filter. had dopplers of legs during previous admission - negative. cont voltaren gel on site of pain on R chest. gave pepcid 20mg IV x 1 at her request since she feels it is GERD as noted above consider CTA chest in light of modestly elevated d-dimer (but the pain is not pleuritic and she states the pain is superficial). no recent trauma or fall to suggest rib fracture -unchanged R chest wall remains mildly TTP (5) Chronic pain: Plan: chronic back pain and pain in right distal femur from an inoperable fracture. She was on Fentanyl patch 25mcg q3d at home (dose was recently increased from 12 to 25 patch in December) daughter expressed concern for increased sleepiness with this dose at time of this admission we reduced her total dose to 12mcg patch every 3 days (6) Type 2 diabetes mellitus: Plan: pharmacy glycemic consult placed due to high BSGs while on high-dose steroids. is on insulin pump at home. (7) Hypothyroidism: Plan: TSH stable 12/2023 Continue Synthroid (8) Chronic obstructive pulmonary disease: Plan: Wheezing - suspect due to pulmonary edema ("cardiac wheezing") COPD flare also possible (records indicate COPD as dx, but outpatient pulm notes indicate dx is not confirmed). 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 Plan daughter Oscar updated by phone 02/04, bedside 02/07 PT, OT evals 02/06 - sat EOB, did not attempt stand/transfer, refused use of lift normally can help transfer at home with her good (left) leg main barrier to discharge home at this time Admission and Anticipated Discharge Date Admission Date: February 03, 2024 Subjective work of breathing still increased compared to baseline but slowly improving right sided chest wall pain unchanged Physical Exam 2 Physical Exam: PHYSICAL EXAMINATION Last 24h vital signs reviewed, see documentation in flowsheet General: comfortable appearing, no distress, awake alert sitting in bed HEENT: Normocephalic, atraumatic, pupils round and equal, sclerae anicteric, no conjunctival injection, moist mucus membranes trach present in anterior neck, no excessive secretions Lungs: Normal respiratory effort. CTAB with no wheezing or crackles, diminished in bases Heart: Regular rate and rhythm, no murmurs. No JVD Abdomen: Soft, nontender, nondistended. Bowel sounds present. Extremities: Warm, dry, well-perfused. 1+ extremity edema - mild/improved. Neuro: Alert and oriented x 4, face symmetric, moves 4 extremities well Psych: Normal affect and behavior Results & Data Results & Data Vital Signs (Past 12 Hours) Vital Signs Temp Pulse Pulse Pulse Resp BP Pulse Ox 02/08/24 15:28 36.7 C 78 17 114/66 97 02/08/24 15:28 88 91 02/08/24 11:48 36.6 C 80 16 128/60 94 02/08/24 11:35 77 16 97 02/08/24 08:31 36.5 C 70 16 102/65 96 02/08/24 08:00 02/08/24 07:44 80 18 92 02/08/24 07:14 64 O2 Del Method O2 Flow Rate FiO2 02/08/24 15:28 Trach Collar 7 02/08/24 15:28 Trach Collar 6 28 02/08/24 11:48 Trach Collar 7 02/08/24 11:35 Trach Collar 02/08/24 08:31 Trach Collar 7 02/08/24 08:00 Trach Collar 6 02/08/24 07:44 Trach Collar 6 02/08/24 07:14 Laboratory Results 02/06/24 09:37 02/08/24 05:41 PG Care Time/CCT Total # of Minutes Spent Total Time Spent with Patient: Total time spent is greater than 50% in coordination of care (as documented) at patient's floor/unit and/or counseling patient: Coding Level of Care Code 94362 SUB INP/OBS CARE 2/35MIN Diagnoses Acute on chronic diastolic HF (heart failure) I50.33 Acute encephalopathy G93.40 Acute on chronic hypoxic respiratory failure J96.21 Right-sided chest pain R07.9 Chronic pain G89.29 Type 2 diabetes mellitus E11.9 Hypothyroidism E03.9 Chronic obstructive pulmonary disease J44.1 COPD type: COPD with acute exacerbation Obesity hypoventilation syndrome E66.2 Tracheostomy dependence Z93.0 Morbid obesity with BMI of 60.0-69.9, adult E66.01; Z68.44 GERD (gastroesophageal reflux disease) K21.9 Cor pulmonale I27.81 S/P IVC filter Z95.828 DVT prophylaxis Z29.9 Acute respiratory alkalosis E87.3 Hypokalemia E87.6 (8) Chronic obstructive pulmonary disease COPD type: COPD with acute exacerbation Qualified Code(s): J44.1 - Chronic obstructive pulmonary disease with (acute) exacerbation
[2024-02-08] MEDS: POTASSIUM CHLORIDE CRTAB 20 MEQ TABCR PO SCH (20:50)
[2024-02-09] MEDS ORDERED: Nursing to Pharmacy Communication SCH (01:15)
[2024-02-09 05:33] LABS: BUN Creatinine Ratio 32.9 (10-20); Calcium 8.9 mg/dl (8.6-10.3); Creatinine Clr Calc Pharmacy 51.9 ml/min; Est GFR (African American) 40.7 ml/min; Est GFR (Non-African American) 35.1 ml/min; Potassium 3.4 mmol/L (3.5-5.1)
[2024-02-09] MEDS: LANTUS PER UNIT CHARGE SC SCH (08:55)
[2024-02-09] MEDS: FUROSEMIDE 80 MG TAB PO SCH (08:56)
--- NOTE | 2024-02-09 13:44 | Pharmacy Report ---
Pharmacy Glycemic Short Note 2 - Date of Service February 09, 2024 - Glycemic Short BSG Results (Last 24 hours): 02/08/24 02/08/24 02/09/24 17:11 20:39 04:36 Glucose 121 H POC Glucose 263 H 295 H 02/09/24 02/09/24 08:09 12:19 Glucose POC Glucose 104 H 147 H OUTPATIENT ANTIDIABETIC REGIMEN: * Novolog insulin pump * per last DM educator note in December 2023: * -basal: 106.5 units/day * -Carb ratio: 1.8 from 8349-9642, 3.1 from 6475-4284 * -SF: 10 from 2143-4884, 17 from 2012-3956 (BSG > 150 mg/dL) HbA1c: 8.1% (02/06/24) ASSESSMENT: 02/09/24: * Significant decrease in insulin needs over the past 24 hours; total of 185 units administered (40 units basal and 145 units bolus) * Patient remains on prednisone 20 mg PO daily. * Persistent post prandial BSG elevation. Will tighten correction factor. 02/08/24: * Received 285 units of insulin yesterday (120 units of basal and 165 units of prandial/correctional bolus) * Steroids reduced yesterday (only one dose of methylprednisolone 30 mg IV given) and changed to prednisone daily * 60 units of Lantus was still given last evening despite dose instruction to call pharmacy if discontinued * Fasting blood sugar of 84 mg/dL this morning - likely related to full basal dose in evening despite IV steroid discontinuation * Will give significantly reduced basal dose today with prednisone 20 mg PO daily * Maintain aggressive Novolog parameters for now, will loosen if needed 02/07/24: * Blood sugars elevated yesterday, [phone] mg/dL w/ fasting BSG of 157 mg/dL this morning * Received 250 units of insulin (120 units of basal and 130 units of prandial/correctional bolus) * Steroids decreased to methylprednisolone 30 mg IV BID * Despite elevations - will continue same insulin dosing today with decrease in steroids * If still elevated, then will increase tomorrow 02/06/24: * DC is a 68 year old female w/ T2DM, well known to pharmacy glycemic service due to multiple inpatient consultations * Admitted on 02/03/24 for acute encephalopathy (multiple possible etiologies at this time) * Pharmacy consulted for glycemic management yesterday (02/04) afternoon * Ordered methylprednisolone 60 mg IV BID, will schedule Lantus with steroids PLAN FOR INPATIENT GLYCEMIC CONTROL: * Hold insulin pump * Basal insulin * Lantus 40 units SC daily w/ prednisone * Bolus insulin * NovoLog per scale ACHS or Q6hrs while NPO * Goal Range: Low 110 mg/dL - High 140 mg/dL * Correction Factor: 6 mg/dL/unit * Nutritional / Prandial insulin per carb ratio of 1 unit per 1.5 grams CHO consumed
--- NOTE | 2024-02-09 17:56 | Hospitalist Progress Note ---
Date of Service February 09, 2024 Assessment & Plan (1) Acute on chronic diastolic HF (heart failure): Plan: 68 y/o with chronic hypoxic and hypercarbic respiratory failure and tracheostomy admitted with increased dyspnea and hypoxia Combination of acute/chronic diastolic and right-sided CHF. Appears that weight was up at time of last discharge, possibly related to steroids for gout? Rechecked limited echo to re-eval LV function -- unchanged from her prior echo. earlier in hospital course diuresed with IV lasix gave diamox 250mg 02/04, 02/05 for significant alkalosis. appears euvolemic and O2 requirement back baseline (6L), Cr inflected up to 1.6 then improved to 1.5 today oral diuretics resumed 02/08. -continue spironolactone -cont oral lasix 80 mg daily with bid potassium, home regimen -assess response to this - unclear if this is adequate baseline dose or needs increase. Weight up but edema is down, O2 improved, suspect inaccurate bed weights (2) Acute encephalopathy: Plan: resolved likely was combination of toxic effects from narcotics and metabolic from hypoxia and alkalotic state. ammonia wnl, abg wthout hypercarbia was ONLY on 25mcg of fentanyl patch at home. Nursing found both a 12mcg patch AND a 25mcg patch on her skin 02/05. The 25mcg patch was removed & discarded. Moving forward will only use 12mcg patch. (3) Acute on chronic hypoxic respiratory failure: Plan: Primarily heart failure exacerbation, possible acute exacerbation of COPD COVID negative at admission [facility] last admission was negative Sputum cx - contaminated D-dimer minimally elevated but suspicion for PE is low (had neg dopplers of legs in late December, has IVC filter, etc) resolving/resolved cont with scheduled bronchodilators, saline nebs, pulmicort respules BID no wheezing last 48h, steroids to prednisone 20 mg x 5 days (4) Right-sided chest pain: Plan: suspect muscular - reproducible on exam, and fairly constant in nature could be pulmonary based but less likely doubt GI but she feels strongly it is due to GERD troponin checked multiple times - scantly above upper limit of normal. coronary ischemia unlikely. at risk of PE but does have IVC filter. had dopplers of legs during previous admission - negative. cont voltaren gel on site of pain on R chest. gave pepcid 20mg IV x 1 at her request since she feels it is GERD as noted above consider CTA chest in light of modestly elevated d-dimer (but the pain is not pleuritic and she states the pain is superficial). no recent trauma or fall to suggest rib fracture -unchanged R chest wall remains mildly TTP (5) Chronic pain: Plan: chronic back pain and pain in right distal femur from an inoperable fracture. She was on Fentanyl patch 25mcg q3d at home (dose was recently increased from 12 to 25 patch in December) daughter expressed concern for increased sleepiness with this dose at time of this admission we reduced her total dose to 12mcg patch every 3 days (6) Type 2 diabetes mellitus: Plan: pharmacy glycemic consult placed due to high BSGs while on high-dose steroids. -reviewed adjustments in their note 02/08 is on insulin pump at home. (7) Hypothyroidism: Plan: TSH stable 12/2023 Continue Synthroid (8) Chronic obstructive pulmonary disease: Plan: Wheezing - suspect mostly was due to pulmonary edema possible component of COPD exac, see above (9) Obesity hypoventilation syndrome: Plan: known dx with trach in place (10) Tracheostomy dependence: Plan: metal trach (11) Morbid obesity with BMI of 60.0-69.9, adult: Plan: BMI 67 (12) GERD (gastroesophageal reflux disease): Plan: cont PPI (13) Cor pulmonale: Plan: see above (14) S/P IVC filter: (15) DVT prophylaxis: Plan: lovenox 40mg BID (16) Acute respiratory alkalosis: Plan: as seen on abg BMP improved with diamox, CO2 normalized (17) Hypokalemia: Plan: Replaced resolved. -mildly low today but back on bid supplement Plan daughter Oscar updated by phone 02/04, bedside 02/07 PT, OT evals 02/06, 02/08 - sat EOB, did not attempt stand/transfer, refused use of lift normally can help transfer at home with her good (left) leg barrier to discharge home at this time, daughter needs to bring in her shoes Admission and Anticipated Discharge Date Admission Date: February 03, 2024 Subjective continues with some dyspnea and cough leg edema has resolved didn't stand with PT/OT wont until dtr brings in her shoes, refuses lift Physical Exam 2 Physical Exam: PHYSICAL EXAMINATION Last 24h vital signs reviewed, see documentation in flowsheet General: comfortable appearing, no distress, awake alert sitting in bed, talking on phone HEENT: Normocephalic, atraumatic, pupils round and equal, sclerae anicteric, no conjunctival injection, moist mucus membranes trach present in anterior neck, no excessive secretions Lungs: Normal respiratory effort. CTAB with no wheezing or crackles, diminished in bases Heart: Regular rate and rhythm, no murmurs. No JVD Abdomen: Soft, nontender, nondistended. Bowel sounds present. Extremities: Warm, dry, well-perfused. LE edema resolved Neuro: Alert and oriented x 4, face symmetric, moves 4 extremities well Psych: Normal affect and behavior Results & Data Results & Data Vital Signs (Past 12 Hours) Vital Signs Temp Pulse Pulse Resp BP Pulse Ox O2 Del Method 02/09/24 15:43 68 02/09/24 15:30 37.1 C 76 20 117/66 94 Trach Collar 02/09/24 14:57 72 20 94 Trach Collar 02/09/24 11:50 36.4 C L 75 18 152/71 H 94 Trach Collar 02/09/24 10:57 71 18 94 Trach Collar 02/09/24 09:53 59 L 02/09/24 09:53 Trach Collar 02/09/24 07:56 36.5 C 62 17 155/69 H 90 Trach Collar 02/09/24 07:10 68 18 97 Trach Collar O2 Flow Rate FiO2 02/09/24 15:43 02/09/24 15:30 6 02/09/24 14:57 6 28 02/09/24 11:50 7 02/09/24 10:57 6 28 02/09/24 09:53 02/09/24 09:53 7 02/09/24 07:56 7 02/09/24 07:10 6 28 Laboratory Results 02/06/24 09:37 02/09/24 04:36 PG Care Time/CCT Total # of Minutes Spent Total Time Spent with Patient: Total time spent is greater than 50% in coordination of care (as documented) at patient's floor/unit and/or counseling patient: Coding Level of Care Code 23141 SUB INP/OBS CARE 2/35MIN Diagnoses Acute on chronic diastolic HF (heart failure) I50.33 Acute encephalopathy G93.40 Acute on chronic hypoxic respiratory failure J96.21 Right-sided chest pain R07.9 Chronic pain G89.29 Type 2 diabetes mellitus E11.9 Hypothyroidism E03.9 Chronic obstructive pulmonary disease J44.1 COPD type: COPD with acute exacerbation Obesity hypoventilation syndrome E66.2 Tracheostomy dependence Z93.0 Morbid obesity with BMI of 60.0-69.9, adult E66.01; Z68.44 GERD (gastroesophageal reflux disease) K21.9 Cor pulmonale I27.81 S/P IVC filter Z95.828 DVT prophylaxis Z29.9 Acute respiratory alkalosis E87.3 Hypokalemia E87.6 (8) Chronic obstructive pulmonary disease COPD type: COPD with acute exacerbation Qualified Code(s): J44.1 - Chronic obstructive pulmonary disease with (acute) exacerbation
--- NOTE | 2024-02-10 09:45 | Pharmacy Report ---
Pharmacy Glycemic Short Note 2 - Date of Service February 10, 2024 - Glycemic Short BSG Results (Last 24 hours): 02/09/24 02/09/24 02/09/24 12:19 17:04 20:16 POC Glucose 147 H 253 H 232 H 02/10/24 08:03 POC Glucose 129 H OUTPATIENT ANTIDIABETIC REGIMEN: * Novolog insulin pump * per last DM educator note in December 2023: * -basal: 106.5 units/day * -Carb ratio: 1.8 from 2870-4550, 3.1 from 9117-0631 * -SF: 10 from 1273-7885, 17 from 8551-6875 (BSG > 150 mg/dL) HbA1c: 8.1% (02/06/24) ASSESSMENT: 02/10/24: * Whit received 191 units of insulin yesterday (40 were basal, 20% of regimen) * Fasting BSGs typically within goal range or below goal range, she corrects well overnight, will try to avoid HS basal administration. Basal requirements inconsistent based on previous data from other admission. She has required anywhere from 30-120 units of basal insulin with and/or without steroids with no clear pattern. Fasting BSGs typically controlled. * She is on a 5 day course of prednisone 20mg ending 02/11. * BSG trending up throughout the day, will increase basal regimen slightly for a better basal-bolus balance. Carbohydrate ratio also tightened slightly. 02/09/24 * Significant decrease in insulin needs over the past 24 hours; total of 185 units administered (40 units basal and 145 units bolus) * Patient remains on prednisone 20 mg PO daily. * Persistent post prandial BSG elevation. Will tighten correction factor. 02/08/24: * Received 285 units of insulin yesterday (120 units of basal and 165 units of prandial/correctional bolus) * Steroids reduced yesterday (only one dose of methylprednisolone 30 mg IV given) and changed to prednisone daily * 60 units of Lantus was still given last evening despite dose instruction to call pharmacy if discontinued * Fasting blood sugar of 84 mg/dL this morning - likely related to full basal dose in evening despite IV steroid discontinuation * Will give significantly reduced basal dose today with prednisone 20 mg PO daily * Maintain aggressive Novolog parameters for now, will loosen if needed 02/07/24: * Blood sugars elevated yesterday, [phone] mg/dL w/ fasting BSG of 157 mg/dL this morning * Received 250 units of insulin (120 units of basal and 130 units of prandial/correctional bolus) * Steroids decreased to methylprednisolone 30 mg IV BID * Despite elevations - will continue same insulin dosing today with decrease in steroids * If still elevated, then will increase tomorrow 02/06/24: * DC is a 68 year old female w/ T2DM, well known to pharmacy glycemic service due to multiple inpatient consultations * Admitted on 02/03/24 for acute encephalopathy (multiple possible etiologies at this time) * Pharmacy consulted for glycemic management yesterday (02/04) afternoon * Ordered methylprednisolone 60 mg IV BID, will schedule Lantus with steroids PLAN FOR INPATIENT GLYCEMIC CONTROL: * Hold insulin pump * Basal insulin * Lantus 50 units SC daily w/ prednisone * Bolus insulin * NovoLog per scale ACHS or Q6hrs while NPO * Goal Range: Low 110 mg/dL - High 140 mg/dL * Correction Factor: 6 mg/dL/unit * Nutritional / Prandial insulin per carb ratio of 1 unit per 1.25 grams CHO consumed
[2024-02-10] MEDS: LANTUS PER UNIT CHARGE SC SCH (09:59)
--- NOTE | 2024-02-10 15:59 | Hospitalist Progress Note ---
Date of Service February 10, 2024 Assessment & Plan (1) Acute on chronic diastolic HF (heart failure): Plan: 68 y/o with chronic hypoxic and hypercarbic respiratory failure and tracheostomy admitted with increased dyspnea and hypoxia Combination of acute/chronic diastolic and right-sided CHF. Appears that weight was up at time of last discharge, possibly related to steroids for gout? Rechecked limited echo to re-eval LV function -- unchanged from her prior echo. earlier in hospital course diuresed with IV lasix gave diamox 250mg 02/04, 02/05 for significant alkalosis. appears euvolemic and O2 requirement back baseline (6L) though family reports she only uses 6L O2 at night, discussed with RN will wean daytime since she is satting 98%. Goal sats 88-92% per Dr. Duarte -continue spironolactone -cont oral lasix 80 mg daily with bid potassium, home regimen -assess response to this - unclear if this is adequate baseline dose or needs increase. no bed weight today. only trace edema -AM BMP mag CBC procal (2) Acute encephalopathy: Plan: resolved likely was combination of toxic effects from narcotics and metabolic from hypoxia and alkalotic state. ammonia wnl, abg wthout hypercarbia was ONLY on 25mcg of fentanyl patch at home. Nursing found both a 12mcg patch AND a 25mcg patch on her skin 02/05. The 25mcg patch was removed & discarded. Moving forward will only use 12mcg patch. (3) Acute on chronic hypoxic respiratory failure: Plan: Primarily heart failure exacerbation, possible acute exacerbation of COPD COVID negative at admission [facility] last admission was negative resolving/resolved cont with scheduled bronchodilators, saline nebs, pulmicort respules BID no wheezing last 72+h, steroids to prednisone 20 mg x 5 days (4) Right-sided chest pain: Plan: suspect muscular - reproducible on exam, and fairly constant in nature could be pulmonary based but less likely troponin checked multiple times - scantly above upper limit of normal. coronary ischemia unlikely. -unchanged R chest wall remains mildly TTP (5) Chronic pain: Plan: chronic back pain and pain in right distal femur from an inoperable fracture. She was on Fentanyl patch 25mcg q3d at home (dose was recently increased from 12 to 25 patch in December) daughter expressed concern for increased sleepiness with this dose at time of this admission we reduced her total dose to 12mcg patch every 3 days (6) Type 2 diabetes mellitus: Plan: pharmacy glycemic consult following -reviewed adjustments in their note 02/09, BG a bit labile is on insulin pump at home. 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 -AM BMP Plan Chronic combined systolic and diastolic heart failure, chronic right heart failure -family requested cardiology consult -is euvolemic at this time and on metoprolol, statin, asa as well as furosemide and spironolactone -will enquire with [facility] cardiology. Last seen inpatient 10/2023 CKD stage 3b - primary sole layer Dr. Drew -reviewed GFR with her family members has been 30-40 in our records back to 2018 when it was more consistently in low 40s. discussed effects of medications and volume status on GFR estimates/Cr DVT ppx - lovenox 40mg BID notes and PSH stated she has IVC filter but she denies this as does her family, I reviewed CT abdomen films from winter 2022 and recently in 2023 and agree I see no evidence of IVC filter -removed from PSH and problem list Extensively updated family members at bedside 02/09 PT, OT evals 02/06, 02/08 - sat EOB, did not attempt stand/transfer, refused use of lift normally can help transfer at home with her good (left) leg. She now has her shoes at bedside so hope for progression with transferring Admission and Anticipated Discharge Date Admission Date: February 03, 2024 Subjective Shortness of breath very slowly continues to improve. Not coughing much. Leg edema minimal. Has shoes now. Physical Exam Physical Exam: PHYSICAL EXAMINATION Last 24h vital signs reviewed, see documentation in flowsheet General: comfortable appearing, no distress, awake alert sitting in bed, visiting with family HEENT: Normocephalic, atraumatic, pupils round and equal, sclerae anicteric, no conjunctival injection, moist mucus membranes trach present in anterior neck, no excessive secretions Lungs: Normal respiratory effort. CTAB with no wheezing or crackles, diminished in bases - unchanged Heart: Regular rate and rhythm, no murmurs. No JVD Abdomen: Soft, nontender, nondistended. Bowel sounds present. Extremities: Warm, dry, well-perfused. LE edema resolved - trace only, on calf Neuro: Alert and oriented x 4, face symmetric, moves 4 extremities well Psych: Normal affect and behavior Results & Data Results & Data Vital Signs (Past 12 Hours) Vital Signs Temp Pulse Pulse Resp BP Pulse Ox O2 Del Method 02/10/24 15:36 87 16 97 Trach Collar 02/10/24 15:10 37.3 C 80 20 105/63 92 Trach Collar 02/10/24 11:27 36.7 C 66 20 112/71 98 Trach Collar 02/10/24 11:18 71 17 97 Nasal Cannula 02/10/24 10:50 Trach Collar 02/10/24 07:57 61 02/10/24 07:46 36.7 C 59 L 20 133/76 98 Trach Collar 02/10/24 07:15 74 97 Trach Collar O2 Flow Rate FiO2 02/10/24 15:36 6 02/10/24 15:10 6 02/10/24 11:27 6 02/10/24 11:18 6 02/10/24 10:50 7 02/10/24 07:57 02/10/24 07:46 6 02/10/24 07:15 6 28 PG Care Time/CCT Total # of Minutes Spent Total Time Spent with Patient: I personally spent: 50-minute today on clinical care activities including: reviewing chart notes and vital signs, chart review from previous admissions reviewing studies -previous CT imaging films examining and counseling the patient counseling the patient's family writing orders documentation Coding Level of Care Code 11359 SUB INP/OBS CARE 3/50MIN Diagnoses Acute on chronic diastolic HF (heart failure) I50.33 Acute encephalopathy G93.40 Acute on chronic hypoxic respiratory failure J96.21 Right-sided chest pain R07.9 Chronic pain G89.29 Type 2 diabetes mellitus E11.9 Hypothyroidism E03.9 Chronic obstructive pulmonary disease J44.1 COPD type: COPD with acute exacerbation Obesity hypoventilation syndrome E66.2 Tracheostomy dependence Z93.0 Morbid obesity with BMI of 60.0-69.9, adult E66.01; Z68.44 GERD (gastroesophageal reflux disease) K21.9 Hypokalemia E87.6 (8) Chronic obstructive pulmonary disease COPD type: COPD with acute exacerbation Qualified Code(s): J44.1 - Chronic obstructive pulmonary disease with (acute) exacerbation
[2024-02-11] MEDS: ONDANSETRON INJ 2 MG/ML 2 ML VIAL IV PRN (03:38)
[2024-02-11 05:12] LABS: Hematocrit (blood only) 35.9 % (37.0-47.0); Hemoglobin 11.2 g/dl (12.0-16.0); Mean Corpuscular Hemoglobin 27.4 pg (25.0-34.0); Mean Corpuscular Hgb Conc 31.2 g/dL (32.0-36.0); Mean Corpuscular Volume 87.8 fL (80.0-100.0); Mean Platelet Volume 9.6 fL (9.4-12.4); Platelet Count 224 K/uL (130-400); RDW Coefficient of Variation 16.6 % (11.5-14.5); RDW Standard Deviation 53.4 fL (36.4-46.3); Red Blood Count 4.09 M/uL (4.20-5.40); White Blood Count 10.77 K/ul (4.8-10.8)
[2024-02-11 05:51] LABS: BUN Creatinine Ratio 28.3 (10-20); Calcium 8.9 mg/dl (8.6-10.3); Creatinine Clr Calc Pharmacy 52.7 ml/min; Est GFR (African American) 40.7 ml/min; Est GFR (Non-African American) 35.1 ml/min; Potassium 4.2 mmol/L (3.5-5.1)
[2024-02-11] MEDS: MAGNESIUM OXIDE 400 MG TAB PO SCH (09:55)
--- NOTE | 2024-02-11 11:14 | Cardiology Consultation ---
<Statement entered by Jessica Constantino MD - 02/11/24 20:53> I have reviewed the advanced practitioner's documentation on the date of service referenced in note, and I agree with, and take responsibility for the plan of care. 68-year-old female with known history of heart failure with preserved ejection fraction and right heart failure, chronic pain, obesity, COPD trach dependent, hypertension dyslipidemia diabetes mellitus presents with acute on chronic heart failure on dose of IV Lasix and change furosemide to torsemide continue with Aldactone I spent a total of [15] minutes coordinating, documenting, and providing care for this patient excluding time spent in the performance of separately billed services or time spent by another provider. Date of Consultation February 11, 2024 Assessment & Plan (1) Acute on chronic combined systolic (congestive) and diastolic (congestive) heart failure: (2) Chest pain at rest: (3) HTN, goal below 130/80: (4) Dyslipidemia, goal LDL below 70: Plan Acute decompensated right heart failure, pickwickian physiology. Payne catheter in place. Cumulative I's/O's -15,648 mL overall. Recorded weights 163 kg -> 159.6 kg. Creatinine stable. - Furosemide 40 mg IV x 1 this afternoon - Transition oral furosemide 80 mg/day to Torsemide 40 mg/day - Continue spironolactone - Recommend addition of Jardiance Chest pain. Discomfort reproducible with palpation of the chest wall. General measures advised. Coronary artery disease. High-sensitivity troponin minimally elevated. Patient without overt angina. EKG without acute change. Resting echocardiography on February 04, 2024 was technically limited, revealing normal LV systolic function, EF 60 to 65%, with mild concentric LVH. Right ventricle was described as mildly dilated with moderate reduction in RV systolic function. Continue medical man agement - beta-nicolle, ASA, and statin. Hypertension. Blood pressure acceptable controlled. Dyslipidemia. Continue moderate intensity statin therapy with atorvastatin 40 mg/day I spent a total of 45 minutes on the date of service in preparation, delivery, and documentation of the care provided to this patient excluding any time spent in the performance of separately billed services. This visit was a split-shared visit with the substantive portion of the medical decision making performed by the supervising tick sewer/billing provider. History of Present Illness Reason for Consultation: Heart failure Requesting Physician: Dr. Kailyn Abarca MD Attending Physician: Dr. Kailyn Abarca MD History of Present Illness Complex 68 year old female admitted to [facility] on 02/03/2024 with acute on chronic hypoxic respiratory failure, acute diastolic/right heart failure, chronic pain (back pain and pain in right femur from an inoperable fracture). Patient is near bedbound, living at home with her handicapped daughter, able to transfer to the bedside commend with help/lift. Cardiology consultation requested due to heart failure and patient/family request. Received IV furosemide earlier this admission, transitioned to oral furosemide on 02/08. Also on spironolactone. Complaints voiced include chest pain (reproducible with palpitation of the chest wall), shortness of breath above her baseline, and fluid retention. Past Medical History: Coronary artery disease Systolic and diastolic heart failure Right heart failure secondary to obesity hypoventilation syndrome, pickwickian physiology COPD/chronic hypoxic respiratory failure, tracheostomy dependent Hypertension Dyslipidemia Type 2 diabetes GERD CKD Allergies Allergy/AdvReac Type Severity Reaction Status Date / Time Penicillins Allergy Intermediate Hives Verified 02/03/24 17:06 amitriptyline Allergy Unknown CAN'T Verified 02/03/24 17:06 REMEMBER doxycycline Allergy Unknown CAN'T Verified 02/03/24 17:06 REMEMBER guaifenesin Allergy Unknown CAN'T Verified 02/03/24 17:06 REMEMBER metformin Allergy Unknown CAN'T Verified 02/03/24 17:06 REMEMBER phenylephrine Allergy Unknown CAN'T Verified 02/03/24 17:06 REMEMBER pseudoephedrine Allergy Unknown CAN'T Verified 02/03/24 17:06 REMEMBER tetracycline Allergy Unknown CAN'T Verified 02/03/24 17:06 REMEMBER venlafaxine [From Effexor] Allergy Unknown CAN'T Verified 02/03/24 17:06 REMEMBER gabapentin AdvReac Intermediate BECOMES Verified 02/03/24 17:06 AGGRESSIVE Home Medications Medication Instructions Recorded Confirmed Type aspirin 81 mg tablet,delayed 81 mg PO QAM #30 tabs 04/06/23 02/03/24 Rx release (Robert Low Dose Aspirin) atorvastatin 40 mg tablet 40 mg PO QPM #30 tabs 04/06/23 02/03/24 Rx bupropion HCl 100 mg tablet,12 hr 200 mg (2 x 100 mg) PO PM #90 ea 04/06/23 02/03/24 Rx sustained-release folic acid 1 mg tablet 1 mg PO QAM #30 tabs 04/06/23 02/03/24 Rx isosorbide mononitrate 30 mg 30 mg PO QAM #30 tabs 04/06/23 02/03/24 Rx tablet,extended release 24 hr levothyroxine 200 mcg tablet 200 mcg PO DAILYBB #30 tabs 04/06/23 02/03/24 Rx levothyroxine 25 mcg tablet 25 mcg PO DAILYBB #30 tabs 04/06/23 02/03/24 Rx magnesium oxide 400 mg PO QAM #30 tabs 04/06/23 02/03/24 Rx melatonin 3 mg tablet 6 mg (2 x 3 mg) PO HS #60 tabs 04/06/23 02/03/24 Rx metoprolol tartrate 25 mg tablet 12.5 mg (1/2 x 25 mg) PO BID #30 04/06/23 02/03/24 Rx tabs multivitamin 1 tab PO QAM #30 tabs 04/06/23 02/03/24 Rx nitroglycerin 0.4 mg sublingual 0.4 mg sublingual DIRECTED PRN 04/06/23 02/03/24 Rx tablet Chest Pain #25 tabs pantoprazole 40 mg tablet,delayed 40 mg PO DAILYBB #30 tabs 04/06/23 02/03/24 Rx release sertraline 50 mg tablet 50 mg PO QAM #30 tabs 04/06/23 02/03/24 Rx spironolactone 25 mg tablet 25 mg PO QAM #30 tabs 04/06/23 02/03/24 Rx topiramate 100 mg tablet 100 mg PO QAM #30 tabs 04/06/23 02/03/24 Rx blood sugar diagnostic (OneTouch #300 ea 07/21/23 02/03/24 Rx Ultra Test strips) blood-glucose meter (OneTouch #1 ea 07/21/23 02/03/24 Rx Ultra2 Meter) pen needle, diabetic 32 gauge x #150 ea 08/26/23 02/03/24 Rx 5/32" (BD Kaitlin 2nd Gen Pen Needle) pen needle, diabetic 32 gauge x #50 ea 08/26/23 02/03/24 Rx 5/32" (BD Kaitlin 2nd Gen Pen Needle) empagliflozin 10 mg tablet 10 mg PO DAILY #30 tabs 10/07/23 02/03/24 Rx (Jardiance) furosemide 80 mg tablet (Lasix) 80 mg PO DAILY #30 tabs 10/24/23 02/03/24 Rx oxycodone 5 mg tablet 5 mg PO Q6H PRN pain #20 tabs 10/24/23 02/03/24 Rx nebulizers #1 ea 11/16/23 02/03/24 Rx ipratropium 0.5 mg-albuterol 3 mg 3 ml inhalation Q4H PRN COUGHING, 11/25/23 02/03/24 Rx (2.5 mg base)/3 mL nebulization WHEEZING, SHORTNESS OF BREATH #180 soln mL ipratropium 20 mcg-albuterol 100 1 puff inhalation QID #4 grams 11/25/23 02/03/24 Rx mcg/actuation mist for inhalation (Combivent Respimat) benzonatate 200 mg capsule 200 mg PO TID PRN Cough 01/15/24 02/03/24 History diclofenac sodium 1 % topical gel 4 g EXT QID PRN Pain 01/15/24 02/03/24 History (Voltaren Arthritis Pain) fentanyl 12 mcg/hr transdermal 12 mcg transdermal .Q72H 01/15/24 02/03/24 History patch fentanyl 25 mcg/hr transdermal 25 mcg transdermal .Q72H 01/15/24 02/03/24 History patch insulin aspart U-100 100 unit/mL 0 unit continuous subcutaneous 01/15/24 02/03/24 History subcutaneous solution (Novolog infusion DAILY U-100 Insulin aspart) naloxone 4 mg/actuation nasal 4 mg intranasal DIRECTED PRN 01/15/24 02/03/24 History spray (Narcan) OVERDOSE bupropion HCl 100 mg tablet,12 hr 100 mg PO QAM 02/03/24 02/03/24 History sustained-release potassium chloride 20 mEq 20 meq PO BID 02/03/24 02/03/24 History tablet,extended release Patient History Medical History Hypothyroidism Right bundle branch block Presence of tracheostomy Morbid obesity Weakness Cor pulmonale CHF (congestive heart failure) Chronic pain Chronic diastolic heart failure cor pulmonale Chronic obstructive pulmonary disease Type 2 diabetes mellitus Chronic hypoxic respiratory failure Obesity hypoventilation syndrome Generalized weakness Fracture of distal end of right femur Hypothyroidism (acquired) Ureterolithiasis Vitamin D deficiency Adjustment disorder with depressed mood Chronic kidney disease, stage 3 Tinea unguium GERD (gastroesophageal reflux disease) Ambulatory dysfunction Insulin-requiring or dependent type II diabetes mellitus Anxiety Coronary artery disease Morbid obesity with BMI of 60.0-69.9, adult RASHAAD (obstructive sleep apnea) Right ventricular dysfunction Sepsis MRSA (methicillin resistant staph aureus) culture positive "sputum 11/2015" HTN (hypertension) Dyslipidemia Surgical History History of hysterectomy History of tonsillectomy and adenoidectomy History of cholecystectomy History of appendectomy Family History Mother Coronary heart disease COPD (chronic obstructive pulmonary disease) Father Suicide Hung himself. Pt found him. Unknown Lung cancer Social History Smoking Status: Never smoker Tobacco Type: Cigarettes Second Hand Exposure: No; Do You Dip or Chew Tobacco: No; Hx Alcohol Use: No Hx Substance Use: No Preferred Language: Uzbek Communication Ability: Effective Visual Impairment: Limited Timber Rider Required: No Beliefs That Will Affect Care: None marital status: Current Living Situation: Family Current Living Situation Comment: with daughter current occupational status: disabled How many Children do You have: 1 Feels Safe at Home: Yes Assistive Devices: Bedside Commode, Hospital Bed, Lift Chair, Oxygen - Continuous and Other Review of Systems Review of Systems: Complete review of systems is otherwise as stated above, negative, or noncontributory. Physical Exam Physical Exam: General: A&Ox3. NAD. + Obese. HENT: Normocephalic. Atraumatic. Eyes: PER. Conjunctiva pink, sclera clear. Neck: + Trach Heart: RRR, 60 bpm. No murmur appreciated. Lungs: Diminished. Decreased. Scattered rhonchi and wheeze. Abdomen: +BS. Somewhat firm. Nontender. Extremities: 1+ edema. No clubbing. No cyanosis. Limited neurological examination is without focal deficits. Pulses: Posterior tibial=1/4. Results & Data Vital Signs (Past 12 Hours) Vital Signs Temp Pulse Pulse Resp BP Pulse Ox O2 Del Method 02/11/24 08:09 36.6 C 63 19 138/71 95 Trach Collar 02/11/24 07:48 56 L 02/11/24 07:38 62 18 96 Trach Collar 02/11/24 04:59 Trach Collar 02/11/24 03:18 36.6 C 60 18 146/76 H 96 Trach Collar 02/10/24 23:39 36.6 C 78 18 114/70 95 Trach Collar O2 Flow Rate FiO2 02/11/24 08:09 4 02/11/24 07:48 02/11/24 07:38 26 02/11/24 04:59 6 02/11/24 03:18 6 02/10/24 23:39 6 Laboratory Results CBC 02/11/24 Range/Units 04:21 WBC 10.77 (4.8-10.8) K/ul RBC 4.09 L (4.20-5.40) M/uL Hgb 11.2 L (12.0-16.0) g/dl Hct 35.9 L (37.0-47.0) % Plt Count 224 (130-400) K/uL Comprehensive Metabolic Panel 02/11/24 Range/Units 04:21 Sodium 136 (136-145) mmol/L Potassium 4.2 D (3.5-5.1) mmol/L Chloride 101 (98-107) mmol/L Carbon Dioxide 30 (21-32) mmol/L BUN 43 H (6-23) mg/dl Creatinine 1.52 H (0.6-1.2) mg/dl Glucose 131 H (70-99(Fasting)) mg/dl Calcium 8.9 (8.6-10.3) mg/dl Intake and Output 02/10/24 02/11/24 02/11/24 22:59 06:59 14:59 Intake Total 240 / 1350 150 / 1350 Output Total 350 / 1850 600 / 1850 Balance -110 / -500 -450 / -500 Intake: Oral 240 / 1350 150 / 1350 Output: Urine Amount (Catheter) 350 / 1850 600 / 1850 Payne/Indwelling 350 / 1850 600 / 1850 Other: Weight 159.6 kg Weight Measurement Method Built in [facility] Diagnostic Findings Telemetry: Sinus/sinus bradycardia with heart rates in the 50s and 60s throughout
[2024-02-11] MEDS: FAMOTIDINE 20 MG TAB PO PRN (13:29)
[2024-02-11] MEDS: POTASSIUM CHLORIDE CRTAB 20 MEQ TABCR PO ONE (13:29)
[2024-02-11] MEDS: FUROSEMIDE 40 MG/4 ML VIAL IV ONE (13:29)
--- NOTE | 2024-02-11 14:41 | Hospitalist Progress Note ---
Date of Service February 11, 2024 Assessment & Plan (1) Acute on chronic diastolic HF (heart failure): Plan: 68 y/o with chronic hypoxic and hypercarbic respiratory failure and tracheostomy admitted with increased dyspnea and hypoxia Combination of acute/chronic diastolic and right-sided CHF. Appears that weight was up at time of last discharge, possibly related to steroids for gout? Rechecked limited echo to re-eval LV function -- unchanged from her prior echo. earlier in hospital course diuresed with IV lasix gave diamox 250mg 02/04, 02/05 for significant alkalosis. Has been on 6L TM, family reports she only uses 6L O2 at night. Sats have been high 90s all week however. Goal sats 88-92% per Dr. Duarte -consulted [facility] cardiology, recs in note reviewed, appreciate eval -lasix 40 IV ordered this afternoon and furosemide (was 80 mg) changed to torsemide 40 mg qAM -continue spironolactone -jardiance recommended -assess response to this - unclear if this is adequate baseline dose or needs increase. no bed weight today. only trace edema -labs: BMP mag ok, CBC stable, procal neg, unremarkable -AM BMP, mag (2) Acute encephalopathy: Plan: resolved likely was combination of toxic effects from narcotics and metabolic from hypoxia and alkalotic state. ammonia wnl, abg wthout hypercarbia was ONLY on 25mcg of fentanyl patch at home. Nursing found both a 12mcg patch AND a 25mcg patch on her skin 02/05. The 25mcg patch was removed & discarded. Moving forward will only use 12mcg patch. (3) Acute on chronic hypoxic respiratory failure: Plan: Primarily heart failure exacerbation, possible acute exacerbation of COPD COVID negative at admission [facility] last admission was negative resolving/resolved cont with scheduled bronchodilators, saline nebs, pulmicort respules BID no wheezing last 72+h, steroids to prednisone 20 mg x 5 days (4) Right-sided chest pain: Plan: suspect muscular - reproducible on exam, and fairly constant in nature could be pulmonary based but less likely troponin checked multiple times - scantly above upper limit of normal. coronary ischemia unlikely. -unchanged R chest wall remains mildly TTP (5) Chronic pain: Plan: chronic back pain and pain in right distal femur from an inoperable fracture. She was on Fentanyl patch 25mcg q3d at home (dose was recently increased from 12 to 25 patch in December) daughter expressed concern for increased sleepiness with this dose at time of this admission we reduced her total dose to 12mcg patch every 3 days (6) Type 2 diabetes mellitus: Plan: pharmacy glycemic consult following -reviewed adjustments in their note 02/09, BG a bit labile is on insulin pump at home. 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 Is on her usual 20 bid replacement -follow BMP Plan CKD stage 3b - primary engineer assistant Dr. Drew -reviewed GFR with her family members has been 30-40 in our records back to 2018 when it was more consistently in low 40s. discussed effects of medications and volume status on GFR estimates/Cr DVT ppx - lovenox 40mg BID notes and PSH stated she has IVC filter but she denies this as does her family, I reviewed CT abdomen films from winter 2022 and recently in 2023 and agree I see no evidence of IVC filter -removed from PSH and problem list Extensively updated family members at bedside 02/09 PT, OT eval 02/09 got inout of chair with some difficulty, max 2PA assist normally can help transfer at home with her good (left) leg. She now has her shoes at bedside so hope for progression with transferring Admission and Anticipated Discharge Date Admission Date: February 03, 2024 Subjective remains dyspneic more than baseline transferred to chair with therapy yesterday, however was max 2PA and getting back into bed was very difficult Physical Exam 2 Physical Exam: PHYSICAL EXAMINATION Last 24h vital signs reviewed, see documentation in flowsheet General: comfortable appearing, no distress HEENT: Normocephalic, atraumatic, pupils round and equal, sclerae anicteric, no conjunctival injection, moist mucus membranes trach present in anterior neck Lungs: Normal respiratory effort. More secretions today, coarse bilaterally anteriorly Heart: Regular rate and rhythm, no murmurs. No JVD Abdomen: Soft, nontender, nondistended. Bowel sounds present. Extremities: Warm, dry, well-perfused. LE edema resolved - trace only Neuro: Alert and oriented x 4, face symmetric, moves 4 extremities well Psych: Normal affect and behavior Results & Data Results & Data Vital Signs (Past 12 Hours) Vital Signs Temp Pulse Pulse Resp BP Pulse Ox O2 Del Method 02/11/24 11:35 36.6 C 63 17 135/78 95 Trach Collar 02/11/24 11:21 64 17 94 Trach Collar 02/11/24 09:55 Trach Collar 02/11/24 08:09 36.6 C 63 19 138/71 95 Trach Collar 02/11/24 07:48 56 L 02/11/24 07:38 62 18 96 Trach Collar 02/11/24 04:59 Trach Collar 02/11/24 03:18 36.6 C 60 18 146/76 H 96 Trach Collar O2 Flow Rate FiO2 02/11/24 11:35 6 02/11/24 11:21 28 02/11/24 09:55 6 02/11/24 08:09 4 02/11/24 07:48 02/11/24 07:38 26 02/11/24 04:59 6 02/11/24 03:18 6 Laboratory Results 02/11/24 04:21 02/11/24 04:21 PG Care Time/CCT Total # of Minutes Spent Total Time Spent with Patient: Total time spent is greater than 50% in coordination of care (as documented) at patient's floor/unit and/or counseling patient: Coding Level of Care Code 33707 SUB INP/OBS CARE 2/35MIN Diagnoses Acute on chronic diastolic HF (heart failure) I50.33 Acute encephalopathy G93.40 Acute on chronic hypoxic respiratory failure J96.21 Right-sided chest pain R07.9 Chronic pain G89.29 Type 2 diabetes mellitus E11.9 Hypothyroidism E03.9 Chronic obstructive pulmonary disease J44.1 COPD type: COPD with acute exacerbation Obesity hypoventilation syndrome E66.2 Tracheostomy dependence Z93.0 Morbid obesity with BMI of 60.0-69.9, adult E66.01; Z68.44 GERD (gastroesophageal reflux disease) K21.9 Hypokalemia E87.6 (8) Chronic obstructive pulmonary disease COPD type: COPD with acute exacerbation Qualified Code(s): J44.1 - Chronic obstructive pulmonary disease with (acute) exacerbation
[2024-02-11] MEDS: ALUMINUM/MAGNESIUM SUSP 30 ML UDC PO STA (15:27)
[2024-02-12 05:12] LABS: BUN Creatinine Ratio 31.4 (10-20); Calcium 9.1 mg/dl (8.6-10.3); Creatinine Clr Calc Pharmacy 58.2 ml/min; Est GFR (African American) 46.1 ml/min; Est GFR (Non-African American) 39.8 ml/min; Magnesium 2.1 mg/dl (1.7-2.4); Potassium 4.3 mmol/L (3.5-5.1)
[2024-02-12] MEDS ORDERED: SODIUM CHLOR 7% 4 ML NEB NEB PRN (07:55)
--- NOTE | 2024-02-12 07:59 | Hospitalist Progress Note ---
Date of Service February 12, 2024 Assessment & Plan (1) Acute on chronic diastolic HF (heart failure): Plan: 68 y/o with chronic hypoxic and hypercarbic respiratory failure and tracheostomy admitted with increased dyspnea and hypoxia Combination of acute/chronic diastolic and right-sided CHF. Appears that weight was up at time of last discharge, possibly related to steroids for gout? Rechecked limited echo to re-eval LV function -- unchanged from her prior echo. earlier in hospital course diuresed with IV lasix gave diamox 250mg 02/04, 02/05 for significant alkalosis. Has been on 6L TM, family reports she only uses 6L O2 at night. Sats have been high 90s all week however. Goal sats 88-92% per Dr. Duarte -consulted [facility] cardiology, appreciate eval -lasix 40 IV 02/10 02/11, furosemide (was 80 mg) changed to torsemide 40 mg qAM. -2700 overnight weight unchanged (only bed wts available). Cr improve 1.5-->1.3, K and Mag wnl had run PVCs on tele this am. -continue spironolactone -jardiance recommended -AM BMP, mag (2) Acute encephalopathy: Plan: resolved likely was combination of toxic effects from narcotics and metabolic from hypoxia and alkalotic state. ammonia wnl, abg wthout hypercarbia was ONLY on 25mcg of fentanyl patch at home. Nursing found both a 12mcg patch AND a 25mcg patch on her skin 02/05. The 25mcg patch was removed & discarded. Moving forward will only use 12mcg patch. (3) Acute on chronic hypoxic respiratory failure: Plan: Primarily heart failure exacerbation, possible acute exacerbation of COPD COVID negative at admission [facility] last admission was negative resolving/resolved cont with scheduled bronchodilators, pulmicort respules BID, saline nebs changed to PRN discussed with RT no wheezing last 72+h, steroids to prednisone 20 mg x 5 days - last dose 02/11 (4) Right-sided chest pain: Plan: suspect muscular - reproducible on exam, and fairly constant in nature could be pulmonary based but less likely troponin checked multiple times - scantly above upper limit of normal. coronary ischemia unlikely. -unchanged R chest wall remains mildly TTP (5) Chronic pain: Plan: chronic back pain and pain in right distal femur from an inoperable fracture. She was on Fentanyl patch 25mcg q3d at home (dose was recently increased from 12 to 25 patch in December) daughter expressed concern for increased sleepiness with this dose at time of this admission we reduced her total dose to 12mcg patch every 3 days (6) Type 2 diabetes mellitus: Plan: pharmacy glycemic consult following -BG [id number] -last dose prednisone today is on insulin pump at home. 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 Is on her usual 20 bid replacement -follow BMP Plan CKD stage 3b - primary community administrator Dr. Drew -reviewed GFR with her family members has been 30-40 in our records back to 2018 when it was more consistently in low 40s. discussed effects of medications and volume status on GFR estimates/Cr DVT ppx - lovenox 40mg BID notes and PSH stated she has IVC filter but she denies this as does her family, I reviewed CT abdomen films from winter 2022 and recently in 2023 and agree I see no evidence of IVC filter -removed from PSH and problem list Extensively updated family members at bedside 02/09 PT, OT eval 02/09 got inout of chair with some difficulty, max 2PA assist normally can help transfer at home with her good (left) leg. She now has her shoes at bedside so hope for progression with transferring Admission and Anticipated Discharge Date Admission Date: February 03, 2024 Subjective breathing may be slightly improved today I/O were negative Physical Exam 2 Physical Exam: PHYSICAL EXAMINATION Last 24h vital signs reviewed, see documentation in flowsheet General: comfortable appearing, no distress HEENT: Normocephalic, atraumatic, pupils round and equal, sclerae anicteric, no conjunctival injection, moist mucus membranes trach present in anterior neck Lungs: Normal respiratory effort. clearer today, scattered occ coarse bilaterally ant post without fine crackles or wheezing Heart: Regular rate and rhythm, no murmurs. No JVD Abdomen: Soft, nontender, nondistended. Bowel sounds present. Extremities: Warm, dry, well-perfused. LE edema - mild. SP pannus edema improved Neuro: Alert and oriented x 4, face symmetric, moves 4 extremities well Psych: Normal affect and behavior Results & Data Results & Data Vital Signs (Past 12 Hours) Vital Signs Temp Pulse Pulse Resp BP BP Pulse Ox 02/12/24 07:54 36.5 C 59 L 19 130/71 98 02/12/24 07:30 63 18 91 02/12/24 03:25 36.8 C 60 18 137/74 92 02/11/24 23:03 36.9 C 64 18 147/67 H 96 02/11/24 21:56 70 02/11/24 20:00 O2 Del Method O2 Flow Rate 02/12/24 07:54 Trach Collar 7 02/12/24 07:30 02/12/24 03:25 Room Air 02/11/24 23:03 Trach Collar 6 02/11/24 21:56 02/11/24 20:00 Trach Collar 6 Laboratory Results 02/11/24 04:21 02/12/24 04:00 PG Care Time/CCT Total # of Minutes Spent Total Time Spent with Patient: Total time spent is greater than 50% in coordination of care (as documented) at patient's floor/unit and/or counseling patient: Coding Level of Care Code 77630 SUB INP/OBS CARE 2/35MIN Diagnoses Acute on chronic diastolic HF (heart failure) I50.33 Acute encephalopathy G93.40 Acute on chronic hypoxic respiratory failure J96.21 Right-sided chest pain R07.9 Chronic pain G89.29 Type 2 diabetes mellitus E11.9 Hypothyroidism E03.9 Chronic obstructive pulmonary disease J44.1 COPD type: COPD with acute exacerbation Obesity hypoventilation syndrome E66.2 Tracheostomy dependence Z93.0 Morbid obesity with BMI of 60.0-69.9, adult E66.01; Z68.44 GERD (gastroesophageal reflux disease) K21.9 Hypokalemia E87.6 (8) Chronic obstructive pulmonary disease COPD type: COPD with acute exacerbation Qualified Code(s): J44.1 - Chronic obstructive pulmonary disease with (acute) exacerbation
[2024-02-12] MEDS: TORSEMIDE 20 MG TAB PO SCH (09:11)
--- NOTE | 2024-02-12 13:18 | Cardiology Progress Note ---
Date of Service February 12, 2024 Assessment & Plan (1) Acute on chronic combined systolic (congestive) and diastolic (congestive) heart failure: (2) Chest pain at rest: (3) HTN, goal below 130/80: (4) Dyslipidemia, goal LDL below 70: Plan Right heart failure, pickwickian physiology. - Volume status difficult to assess, appears mildly volume overloaded - Furosemide 40 mg IV x 1 this afternoon - Torsemide 40 mg/day - Continue spironolactone - Consider addition of Jardiance Chest pain. Reproducible with palpation of the chest wall. General measures advised. Improved Coronary artery disease. High-sensitivity troponin minimally elevated. Patient without overt angina. EKG without acute change. Resting echocardiography on February 04, 2024 was technically limited, revealing normal LV systolic function, EF 60 to 65%, with mild concentric LVH. Right ventricle was described as mildly dilated with moderate reduction in RV systolic function. Continue medical management - beta-nicolle, ASA, and statin. Hypertension. Blood pressure acceptable controlled. Dyslipidemia. Continue moderate intensity statin therapy with atorvastatin 40 mg/day Please contact with any further questions or concerns Admission and Anticipated Discharge Date Admission Date: February 03, 2024 Supervising Physician Co-Signing Physician Notes I have reviewed the advanced practitioner's documentation on the date of service referenced in note, and I agree with, and take responsibility for the plan of care. 68-year-old female with heart failure with preserved ejection fraction right heart failure, chronic respiratory failure with tracheostomy Has responded well to IV Lasix. Lasix been changed to torsemide and Aldactone added I spent a total of [10] minutes coordinating, documenting, and providing care for this patient excluding time spent in the performance of separately billed services or time spent by another provider. Subjective Patient seen and examined. Chart, medications, telemetry reviewed. Feeling some better today. Peripheral edema has improved but not resolved. No chest pain. No palpitations. Telemetry: Sinus ranging from 50-70, occasional PVC, short run I/O balance -2.7 L over the last 24 hours, -18.4 L overall. Creatinine better this AM Review of Systems Review of Systems: Complete review of systems is otherwise as stated above, negative, or noncon tributory. Physical Exam Physical Exam: General: A&Ox3. NAD. + Obese. HENT: Normocephalic. Atraumatic. Eyes: PER. Conjunctiva pink, sclera clear. Neck: + Trach Heart: RRR, 60 bpm. No murmur appreciated. Lungs: Diminished. Decreased. Scattered rhonchi and wheeze. Abdomen: +BS. Somewhat firm. Nontender. Extremities: Mild edema. No clubbing. No cyanosis. Limited neurological examination is without focal deficits. Pulses: Posterior tibial=1/4. Results & Data Vital Signs (Past 12 Hours) Vital Signs Temp Pulse Pulse Pulse Resp BP BP 02/12/24 11:50 72 17 02/12/24 11:39 36.6 C 61 19 125/62 02/12/24 09:05 02/12/24 08:24 61 02/12/24 07:54 36.5 C 59 L 19 130/71 02/12/24 07:30 63 18 02/12/24 03:25 36.8 C 60 18 137/74 Pulse Ox O2 Del Method O2 Flow Rate FiO2 02/12/24 11:50 94 Trach Collar 6 21 02/12/24 11:39 94 Trach Collar 6 02/12/24 09:05 Trach Collar 6 02/12/24 08:24 02/12/24 07:54 98 Trach Collar 7 02/12/24 07:30 91 Trach Collar 6 21 02/12/24 03:25 92 Room Air Laboratory Results Comprehensive Metabolic Panel 02/12/24 Range/Units 04:00 Sodium 137 (136-145) mmol/L Potassium 4.3 (3.5-5.1) mmol/L Chloride 101 (98-107) mmol/L Carbon Dioxide 30 (21-32) mmol/L BUN 43 H (6-23) mg/dl Creatinine 1.37 H (0.6-1.2) mg/dl Glucose 134 H (70-99(Fasting)) mg/dl Calcium 9.1 (8.6-10.3) mg/dl Intake and Output 02/11/24 02/12/24 02/12/24 22:59 06:59 14:59 Intake Total 120 / 600 Output Total 999 / 3350 850 / 3351 Balance -1000 / -2751 -730 / -2751 Intake: Oral 120 / 600 Output: Urine Amount (Catheter) 999 / 3349 850 / 3350 Payne/Indwelling 999 850 / 3350 Other: Other Intake Source sips Weight 160.1 kg Weight Measurement Method Built in [facility]
[2024-02-12] MEDS: POTASSIUM CHLORIDE CRTAB 20 MEQ TABCR PO ONE (14:27)
[2024-02-12] MEDS: FUROSEMIDE 40 MG/4 ML VIAL IV ONE (14:28)
[2024-02-12] MEDS: FLUCONAZOLE 50 MG TAB PO ONE (16:34)
[2024-02-13 06:17] LABS: BUN Creatinine Ratio 25.5 (10-20); Calcium 9.1 mg/dl (8.6-10.3); Creatinine Clr Calc Pharmacy 50.9 ml/min; Est GFR (African American) 39.1 ml/min; Est GFR (Non-African American) 33.8 ml/min
--- NOTE | 2024-02-13 08:52 | Pharmacy Report ---
Pharmacy Glycemic Short Note 2 - Date of Service February 13, 2024 - Glycemic Short BSG Results (Last 24 hours): 02/12/24 02/12/24 02/12/24 11:37 17:10 20:32 Glucose POC Glucose 218 H 182 H 199 H 02/13/24 02/13/24 04:52 07:51 Glucose 143 H POC Glucose 137 H OUTPATIENT ANTIDIABETIC REGIMEN: * Novolog insulin pump * per last DM educator note in December 2023: * -basal: 106.5 units/day * -Carb ratio: 1.8 from 1373-4927, 3.1 from 5111-4993 * -SF: 10 from 0765-2763, 17 from 7916-9591 (BSG > 150 mg/dL) HbA1c: 8.1% (02/06/24) ASSESSMENT: 02/13/24: * Blood sugars elevated yesterday * Received 192 units of insulin (50 units of basal and 142 units of bolus) * Last dose of prednisone yesterday, discontinued for this morning * Will empirically decrease basal insulin and carb ratio this morning 02/10/24: * Whit received 191 units of insulin yesterday (40 were basal, 20% of regimen) * Fasting BSGs typically within goal range or below goal range, she corrects well overnight, will try to avoid HS basal administration. Basal requirements inconsistent based on previous data from other admission. She has required anywhere from 30-120 units of basal insulin with and/or without steroids with no clear pattern. Fasting BSGs typically controlled. * She is on a 5 day course of prednisone 20mg ending 02/11. * BSG trending up throughout the day, will increase basal regimen slightly for a better basal-bolus balance. Carbohydrate ratio also tightened slightly. 02/09/24 * Significant decrease in insulin needs over the past 24 hours; total of 185 units administered (40 units basal and 145 units bolus) * Patient remains on prednisone 20 mg PO daily. * Persistent post prandial BSG elevation. Will tighten correction factor. 02/08/24: * Received 285 units of insulin yesterday (120 units of basal and 165 units of prandial/correctional bolus) * Steroids reduced yesterday (only one dose of methylprednisolone 30 mg IV given) and changed to prednisone daily * 60 units of Lantus was still given last evening despite dose instruction to call pharmacy if discontinued * Fasting blood sugar of 84 mg/dL this morning - likely related to full basal dose in evening despite IV steroid discontinuation * Will give significantly reduced basal dose today with prednisone 20 mg PO daily * Maintain aggressive Novolog parameters for now, will loosen if needed 02/07/24: * Blood sugars elevated yesterday, [phone] mg/dL w/ fasting BSG of 157 mg/dL this morning * Received 250 units of insulin (120 units of basal and 130 units of prandial/correctional bolus) * Steroids decreased to methylprednisolone 30 mg IV BID * Despite elevations - will continue same insulin dosing today with decrease in steroids * If still elevated, then will increase tomorrow 02/06/24: * DC is a 68 year old female w/ T2DM, well known to pharmacy glycemic service due to multiple inpatient consultations * Admitted on 02/03/24 for acute encephalopathy (multiple possible etiologies at this time) * Pharmacy consulted for glycemic management yesterday (02/04) afternoon * Ordered methylprednisolone 60 mg IV BID, will schedule Lantus with steroids PLAN FOR INPATIENT GLYCEMIC CONTROL: * Hold insulin pump * Basal insulin * Lantus 40 units SC daily * Lantus 0-10 units SC HS * Bolus insulin * NovoLog per scale ACHS or Q6hrs while NPO * Goal Range: Low 110 mg/dL - High 140 mg/dL * Correction Factor: 6 mg/dL/unit * Nutritional / Prandial insulin per carb ratio of 1 unit per 1.5 grams CHO consumed
[2024-02-13] MEDS: LANTUS PER UNIT CHARGE SC SCH ×2 (09:34→21:54)
--- NOTE | 2024-02-13 11:03 | Cardiology Progress Note ---
Date of Service February 13, 2024 Assessment & Plan (1) Acute on chronic combined systolic (congestive) and diastolic (congestive) heart failure: (2) Chest pain at rest: (3) HTN, goal below 130/80: (4) Dyslipidemia, goal LDL below 70: Plan 1. Acute on chronic combined systolic/diastolic HF/Right heart failure, pickwickian physiology. - Volume status difficult to assess given appears mildly volume overloaded - Continue Torsemide 40 mg/day - Continue spironolactone - Consider addition of Jardiance prior to discharge. Continue Metoprolol tartrate as part of HF regimen - Negative 3L fluid balance today -Continue to monitor Cr and serum electrolytes with goal serum K> 4.0 and Mag>2.0 2. Chest pain -Was reproducible with palpitation appears resolved today -Hx of Coronary artery disease. High-sensitivity troponin minimally elevated. Patient without overt angina. EKG without acute change. Resting echocardiography was technically limited, revealing normal LV systolic function, EF 60 to 65%, with mild concentric LVH. Right ventricle was described as mildly dilated with moderate reduction in RV systolic function. Continue medical management - beta-nicolle, ASA, and statin. Hypertension. Blood pressure acceptable controlled. Dyslipidemia. Continue moderate intensity statin therapy with atorvastatin 40 mg/day Case has been discussed with Dr. Hernandez. Further recommendations regarding plan of care as per his assessment. I spent a total of 30 minutes on the date of service in preparation, delivery, documentation of the care provided to the patient excluding any time spent in the performance of separately billed services. LEDA Curiel [facility] Admission and Anticipated Discharge Date Admission Date: February 03, 2024 Supervising Physician Co-Signing Physician Notes Patient was seen and personally examined. Chart medications telemetry reviewed. Agree with and personally reviewed assessment and plan by advanced provider as above. Additional 20 minutes of evaluation time , chart review, documentation performed Patient has demonstrated continued improvement. Diuretics now transitioned to oral. Still with negative I's and O's. Plan as outlined above Appears to be tolerating transition from furosemide to torsemide. CHF instructions discussed Subjective 02/13/24: Patient seen and examined at bedside today. Labs, vitals, diagnostics and documentation reviewed. patient reports feeling significantly better. Continues to require high flow over trach, but denies any worsening shortness of breath. Denies any chest pain, pressure, palpitations, near syncope, syncope or significant edema. 1 Kg weight deficit although suspect bed scale is inaccurate. -3640ml fluid balance. Telemetry reviewed SR with 1st degree AVB, occ PAC and PVC's rates 60-70's. No acute events overnight. Review of Systems Review of Systems: All systems reviewed & are unremarkable except as noted in HPI & below Physical Exam Constitutional: + obese; no acute distress and not ill a ppearing Neck: normal visual inspection (Tracheostomy present with speaking valve. Trach since 2007), + tracheostomy present and + thick neck Respiratory: normal respiratory effort and + cough (Thick productive cough with white sputum ); no respiratory distress Auscultation: + rhonchi (bilateral bases ) and + wheezes (exp. wheezes throughout ) Cardiovascular: Rate/Rhythm: regular rate and regular rhythm Heart Sounds: normal S1 and normal S2; no murmur Vessels: dorsalis pedis pulses present; no JVD Extremities: + edema (trace BLE) Psychiatric: A+Ox3, euthymic affect Results & Data Vital Signs (Past 12 Hours) Vital Signs Temp Pulse Pulse Resp BP Pulse Ox O2 Del Method 02/13/24 10:57 36.6 C 68 20 129/72 91 Trach Collar 02/13/24 09:56 Trach Collar 02/13/24 07:57 64 02/13/24 07:56 68 18 91 Room Air 02/13/24 07:00 36.5 C 66 19 128/74 91 Trach Collar 02/13/24 03:24 36.6 C 65 18 120/70 92 Trach Collar 02/13/24 00:24 36.6 C 65 18 106/68 94 Trach Collar 02/13/24 00:14 69 02/12/24 23:53 Trach Collar O2 Flow Rate FiO2 02/13/24 10:57 02/13/24 09:56 4 02/13/24 07:57 02/13/24 07:56 21 02/13/24 07:00 02/13/24 03:24 6 02/13/24 00:24 6 02/13/24 00:14 02/12/24 23:53 6 Laboratory Results Comprehensive Metabolic Panel 02/13/24 Range/Units 04:52 Sodium 138 (136-145) mmol/L Potassium 4.0 (3.5-5.1) mmol/L Chloride 100 (98-107) mmol/L Carbon Dioxide 31 (21-32) mmol/L BUN 40 H (6-23) mg/dl Creatinine 1.57 H (0.6-1.2) mg/dl Glucose 143 H (70-99(Fasting)) mg/dl Calcium 9.1 (8.6-10.3) mg/dl Intake and Output 02/12/24 02/13/24 02/13/24 22:59 06:59 14:59 Intake Total 580 / 1060 Output Total 3200 / 4700 Balance -2620 / -3640 Intake: Oral 580 / 1060 Output: Urine Amount (Catheter) 3200 / 4700 Payne/Indwelling 3200 / 4700 Other: Weight 159.3 kg Weight Measurement Method Built in [facility] Diagnostic Findings Echo 02/05/24: Technically limited study LVEF 60-65% Mild concentric LVH Right ventricle mildly dilated RV systolic function moderately reduced
--- NOTE | 2024-02-13 16:23 | Hospitalist Progress Note ---
Date of Service February 13, 2024 Assessment & Plan (1) Acute on chronic diastolic HF (heart failure): Plan: 68 y/o with chronic hypoxic and hypercarbic respiratory failure and tracheostomy admitted with increased dyspnea and hypoxia Combination of acute/chronic diastolic and right-sided CHF. Appears that weight was up at time of last discharge, possibly related to steroids for gout? Rechecked limited echo to re-eval LV function -- unchanged from her prior echo. earlier in hospital course diuresed with IV lasix gave diamox 250mg 02/04, 02/05 for significant alkalosis. Goal sats 88-92% per Dr. Duarte. Has been on room air - clarified, has been on 6L ROOM AIR flow (not oxygen) by trach collar, thus at baseline. At home uses room air during daytime and 6L nocturnal O2 -[facility] -lasix 40 IV 02/10 02/11, furosemide changed to torsemide 40 mg qAM. -3600 overnight after IV lasix weight unchanged (only bed wts available). BUN/Cr inflected back up to 40/1.57 which is near recent baseline. -assess volume status on torsemide (recent home dose was furosemide 80 mg qam) -continue spironolactone -jardiance recommended -AM BMP, mag (2) Acute encephalopathy: Plan: resolved likely was combination of toxic effects from narcotics and metabolic from hypoxia and alkalotic state. ammonia wnl, abg wthout hypercarbia was ONLY on 25mcg of fentanyl patch at home. Nursing found both a 12mcg patch AND a 25mcg patch on her skin 02/05. The 25mcg patch was removed & discarded. Moving forward will only use 12mcg patch. (3) Acute on chronic hypoxic respiratory failure: Plan: Primarily heart failure exacerbation, possible acute exacerbation of COPD COVID negative at admission [facility] last admission was negative resolving/resolved cont with scheduled bronchodilators, pulmicort respules BID, saline nebs changed to PRN discussed with RT no wheezing for a week, completed short course of steroids prednisone 20 mg x 5 days - last dose 02/11 (4) Right-sided chest pain: Plan: suspect muscular - reproducible on exam, and fairly constant in nature could be pulmonary based but less likely troponin checked multiple times - scantly above upper limit of normal. coronary ischemia unlikely. -unchanged R chest wall remains mildly TTP (5) Chronic pain: Plan: chronic back pain and pain in right distal femur from an inoperable fracture. She was on Fentanyl patch 25mcg q3d at home (dose was recently increased from 12 to 25 patch in December) daughter expressed concern for increased sleepiness with this dose at time of this admission we reduced her total dose to 12mcg patch every 3 days (6) Type 2 diabetes mellitus: Plan: pharmacy glycemic consult following -BG 137-200 -last dose prednisone 02/11 is on insulin pump at home. 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 Is on her usual 20 bid replacement -follow BMP Plan CKD stage 3b - primary senior bi architect Dr. Drew -reviewed GFR with her family members has been 30-40 in our records back to 2018 when it was more consistently in low 40s. discussed effects of medications and volume status on GFR estimates/Cr DVT ppx - lovenox 40mg BID notes and PSH stated she has IVC filter but she denies this as does her family, I reviewed CT abdomen films from winter 2022 and recently in 2023 and agree I see no evidence of IVC filter -removed from PSH and problem list Extensively updated family members at bedside 02/09 PT, OT eval 02/09 got inout of chair with some difficulty, max 2PA assist normally can help transfer at home with her good (left) leg. She now has her shoes at bedside so hope for progression with transferring - barrier to discharge at this time. Home cb lift is an option but she has refused to use lifts. Admission and Anticipated Discharge Date Admission Date: February 03, 2024 Subjective dyspnea continues slowly improving on room air eating lunch today trace leg edema same today good UOP after lasix IV yesterday Physical Exam 2 Physical Exam: PHYSICAL EXAMINATION Last 24h vital signs reviewed, see documentation in flowsheet General: comfortable appearing, no distress, sitting up eating lunch HEENT: Normocephalic, atraumatic, pupils round and equal, sclerae anicteric, no conjunctival injection, moist mucus membranes trach present in anterior neck Lungs: Normal respiratory effort. clear bilaterally Heart: Regular rate and rhythm, no murmurs. No JVD Abdomen: Soft, nontender, nondistended. Bowel sounds present. Extremities: Warm, dry, well-perfused. LE edema - mild/trace. Neuro: Alert and oriented x 4, face symmetric, moves 4 extremities well Psych: Normal affect and behavior Results & Data Results & Data Vital Signs (Past 12 Hours) Vital Signs Temp Pulse Pulse Resp BP Pulse Ox O2 Del Method 02/13/24 15:33 78 02/13/24 15:29 37.1 C 79 18 158/52 H 92 Room Air 02/13/24 15:10 84 20 95 Room Air 02/13/24 11:25 90 18 92 Room Air, Trach Collar 02/13/24 10:57 36.6 C 68 20 129/72 91 Trach Collar 02/13/24 09:56 Trach Collar 02/13/24 07:57 64 02/13/24 07:56 68 18 91 Room Air 02/13/24 07:00 36.5 C 66 19 128/74 91 Trach Collar O2 Flow Rate FiO2 02/13/24 15:33 02/13/24 15:29 02/13/24 15:10 21 02/13/24 11:25 02/13/24 10:57 02/13/24 09:56 4 02/13/24 07:57 02/13/24 07:56 21 02/13/24 07:00 Laboratory Results 02/11/24 04:21 02/13/24 04:52 PG Care Time/CCT Total # of Minutes Spent Total Time Spent with Patient: Total time spent is greater than 50% in coordination of care (as documented) at patient's floor/unit and/or counseling patient: Coding Level of Care Code 70078 SUB INP/OBS CARE 2/35MIN Diagnoses Acute on chronic diastolic HF (heart failure) I50.33 Acute encephalopathy G93.40 Acute on chronic hypoxic respiratory failure J96.21 Right-sided chest pain R07.9 Chronic pain G89.29 Type 2 diabetes mellitus E11.9 Hypothyroidism E03.9 Chronic obstructive pulmonary disease J44.1 COPD type: COPD with acute exacerbation Obesity hypoventilation syndrome E66.2 Tracheostomy dependence Z93.0 Morbid obesity with BMI of 60.0-69.9, adult E66.01; Z68.44 GERD (gastroesophageal reflux disease) K21.9 Hypokalemia E87.6 (8) Chronic obstructive pulmonary disease COPD type: COPD with acute exacerbation Qualified Code(s): J44.1 - Chronic obstructive pulmonary disease with (acute) exacerbation
[2024-02-14] MEDS: LANTUS PER UNIT CHARGE SC SCH (09:04)
--- NOTE | 2024-02-14 12:36 | Hospitalist Progress Note ---
Date of Service February 14, 2024 Assessment & Plan (1) Acute on chronic diastolic HF (heart failure): Plan: 68 y/o with chronic hypoxic and hypercarbic respiratory failure and tracheostomy admitted with increased dyspnea and hypoxia Combination of acute/chronic diastolic and right-sided CHF. Appears that weight was up at time of last discharge Rechecked limited echo to re-eval LV function -- unchanged from her prior echo. Will need proper and accurate documentation of input and outputs Patient currently on p.o. torsemide 40 mg daily and also [facility] on consult, pressure recommendations. (2) Acute encephalopathy: Plan: resolved likely was combination of toxic effects from narcotics and metabolic from hypoxia and alkalotic state. ammonia wnl, abg wthout hypercarbia was ONLY on 25mcg of fentanyl patch at home. Nursing found both a 12mcg patch AND a 25mcg patch on her skin 02/05. The 25mcg patch was removed & discarded. Moving forward will only use 12mcg patch. (3) Acute on chronic hypoxic respiratory failure: Plan: Resolved, patient is currently at baseline (4) Right-sided chest pain: Plan: suspect muscular - reproducible on exam, and fairly constant in nature could be pulmonary based but less likely troponin checked multiple times - scantly above upper limit of normal. coronary ischemia unlikely. -unchanged R chest wall remains mildly TTP (5) Chronic pain: Plan: chronic back pain and pain in right distal femur from an inoperable fracture. She was on Fentanyl patch 25mcg q3d at home (dose was recently increased from 12 to 25 patch in December) daughter expressed concern for increased sleepiness with this dose at time of this admission we reduced her total dose to 12mcg patch every 3 days (6) Type 2 diabetes mellitus: Plan: pharmacy glycemic consult following -BG 137-200 -last dose prednisone 02/11 is on insulin pump at home. 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 Is on her usual 20 bid replacement -follow BMP (14) Chronic kidney disease, stage 3: Plan: CKD stage 3b - primary product scientist Dr. Drew -reviewed GFR with her family members has been 30-40 in our records back to 2017 when it was more consistently in low 40s. discussed effects of medications and volume status on GFR estimates/Cr DVT ppx - lovenox 40mg BID notes and PSH stated she has IVC filter but she denies this as does her family, I reviewed CT abdomen films from winter 2022 and recently in 2023 and agree I see no evidence of IVC filter -removed from PSH and problem list Plan PT, OT eval 02/09 got inout of chair with some difficulty, max 2PA assist normally can help transfer at home with her good (left) leg. She now has her shoes at bedside so hope for progression with transferring - barrier to discharge at this time. Home cb lift is an option but she has refused to use lifts. Admission and Anticipated Discharge Date Admission Date: February 03, 2024 Subjective Patient seen and examined today, lying quietly in bed, has not been able to work with physical therapy for the past couple of days trying to get out of bed. However states shortness of breath is much improved. Review of Systems Review of Systems: All systems reviewed are negative, apart from the ones contained in the history. Physical Exam Physical Exam: The patient is awake, alert and oriented 3, well developed and well nourished, normocephalic and atraumatic, lying in bed and in no acute distress. HEENT--PERRL, EOMI, mucous membranes and oropharynx mildly dry Neck--supple. No JVD. No bruits. Thyroid normal, trachea midline, no adenopathy. Tracheostomy incision Heart--normal S1 and S2. No murmurs, rubs or gallops. Lungs--clear bilaterally, no respiratory distress, no accessory muscle use. Abdomen--normal bowel sounds and soft. Extremities--no cyanosis or clubbing. No edema. Dermatologic--normal skin turgor, normal color, no abnormal lymph nodes, no rash. Neurologic--cranial nerves II through XII grossly intact. Rheumatologic--normal range of motion. Psychiatric--normal affect. Results & Data Results & Data Vital Signs (Past 12 Hours) Vital Signs Temp Pulse Pulse Resp BP Pulse Ox O2 Del Method 02/14/24 11:23 63 20 93 Room Air 02/14/24 10:59 98.2 F 71 16 127/67 95 Room Air 02/14/24 09:32 Room Air 02/14/24 07:53 83 91 Room Air 02/14/24 07:42 98.1 F 72 15 121/75 94 Trach Collar 02/14/24 07:36 62 02/14/24 03:16 98.2 F 63 18 128/68 92 Room Air 02/14/24 00:51 Room Air, Trach Collar O2 Flow Rate 02/14/24 11:23 02/14/24 10:59 02/14/24 09:32 02/14/24 07:53 02/14/24 07:42 02/14/24 07:36 02/14/24 03:16 02/14/24 00:51 6 PG Care Time/CCT Total # of Minutes Spent Total Time Spent with Patient: Total time spent is greater than 50% in coordination of care (as documented) at patient's floor/unit and/or counseling patient: Coding Level of Care Code 05380 SUB INP/OBS CARE 2/35MIN Diagnoses Acute on chronic diastolic HF (heart failure) I50.33 Acute encephalopathy G93.40 Acute on chronic hypoxic respiratory failure J96.21 Right-sided chest pain R07.9 Chronic pain G89.29 Type 2 diabetes mellitus E11.9 Hypothyroidism E03.9 Chronic obstructive pulmonary disease J44.1 COPD type: COPD with acute exacerbation Obesity hypoventilation syndrome E66.2 Tracheostomy dependence Z93.0 Morbid obesity with BMI of 60.0-69.9, adult E66.01; Z68.44 GERD (gastroesophageal reflux disease) K21.9 Hypokalemia E87.6 Chronic kidney disease, stage 3 N18.30 Time Spent (min) 35 (8) Chronic obstructive pulmonary disease COPD type: COPD with acute exacerbation Qualified Code(s): J44.1 - Chronic obstructive pulmonary disease with (acute) exacerbation
--- NOTE | 2024-02-14 13:37 | Cardiology Progress Note ---
Date of Service February 14, 2024 Assessment & Plan (1) Acute on chronic combined systolic (congestive) and diastolic (congestive) heart failure: (2) Chest pain at rest: (3) HTN, goal below 130/80: (4) Dyslipidemia, goal LDL below 70: Plan 1. Acute on chronic combined systolic/diastolic HF/Right heart failure, pickwickian physiology. - Appears euvolemic on exam. - Continue Torsemide 40 mg/day - Continue spironolactone - Consider addition of Jardiance prior to discharge. Change metoprolol to tartrate to metoprolol succinate - Negative 2.5L fluid balance today -Continue to monitor Cr and serum electrolytes with goal serum K> 4.0 and Mag>2.0 -patient is doing well from a cardiac perspective. Recommended PT/OT prior to discharge 2. Chest pain -Was reproducible with palpitation appears resolved today -Hx of Coronary artery disease. High-sensitivity troponin minimally elevated. Patient without overt angina. EKG without acute change. Resting echocardiography was technically limited, revealing normal LV systolic function, EF 60 to 65%, with mild concentric LVH. Right ventricle was described as mildly dilated with moderate reduction in RV systolic function. Continue medical management - beta-nicolle, ASA, and statin. Hypertension. Blood pressure acceptable controlled. Dyslipidemia. Continue moderate intensity statin therapy with atorvastatin 40 mg PO daily Case has been discussed with Dr. Hernandze. Further recommendations regarding plan of care as per his assessment. I spent a total of 30 minutes on the date of service in preparation, delivery, documentation of the care provided to the patient excluding any time spent in the performance of separately billed services. [facility] Admission and Anticipated Discharge Date Admission Date: February 03, 2024 Supervising Physician Co-Signing Physician Notes Patient was seen and personally examined. Chart medications telemetry reviewed. Agree with and personally reviewed assessment and plan by advanced provider as above. Additional 20 minutes of evaluation time , chart review, documentation performed Patient has demonstrated continued improvement. Continues to manifest diuresis with oral diuretic Will transition metoprolol to tartrate to metoprolol succinate Plan as outlined above Appears to be tolerating transition from furosemide to torsemide. CHF instructions discussed Subjective 02/14/24: Patient seen and examined in follow up. Labs, vitals, diagnostic and documentation reviewed. patient is sitting up in bed, room air and reports feeling well. Offers no cardiac complaints. Denies chest pain, pressure, palpitations, no new/worsening shortness of breath, pre-syncope, syncope or edema. Hospitalist also at bedside to discuss case. Review of telemetry demonstrates SR with PVC rates 60-80s. no acute events overnight. Negative fluid balance -2240ml Review of Systems Review of Systems: All systems reviewed & are unremarkable except as noted in HPI & below Physical Exam Constitutional: + obese; no acute distress and not ill a ppearing Neck: normal visual inspection, + tracheostomy present and + short neck Respiratory: normal respiratory effort and + cough; no respiratory distress and no labored breathing Auscultation: + wheezes (Exp. wheezes throughout. ); no crackles and no rales Cardiovascular: RRR, no murmur, no edema Vessels: no JVD Extremities: no edema Skin: no rashes, warm and dry Psychiatric: A+Ox3, euthymic affect Results & Data Vital Signs (Past 12 Hours) Vital Signs Temp Pulse Pulse Resp BP Pulse Ox O2 Del Method 02/14/24 11:23 63 20 93 Room Air 02/14/24 10:59 36.8 C 71 16 127/67 95 Room Air 02/14/24 09:32 Room Air 02/14/24 07:53 83 91 Room Air 02/14/24 07:42 36.7 C 72 15 121/75 94 Trach Collar 02/14/24 07:36 62 02/14/24 03:16 36.8 C 63 18 128/68 92 Room Air Laboratory Results Intake and Output 02/13/24 02/14/24 02/14/24 22:59 06:59 14:59 Intake Total 200 / 660 360 / 660 Output Total 900 / 2900 600 / 2900 Balance -700 / -2240 -240 / -2240 Intake: Oral 200 / 660 360 / 660 Output: Urine Amount (Catheter) 900 / 2900 600 / 2900 Payne/Indwelling 900 / 2900 600 / 2900 Other: Weight 158.7 kg Weight Measurement Method Built in [facility]
[2024-02-14] MEDS: METOPROLOL SUCC 25MG EXT REL TAB PO SCH (21:37)
[2024-02-15 05:00] LABS: Hemoglobin 12.3 g/dl (12.0-16.0); Mean Corpuscular Hemoglobin 27.6 pg (25.0-34.0); Mean Corpuscular Hgb Conc 31.5 g/dL (32.0-36.0); Mean Corpuscular Volume 87.4 fL (80.0-100.0); Mean Platelet Volume 10.4 fL (9.4-12.4); Platelet Count 264 K/uL (130-400); RDW Coefficient of Variation 16.9 % (11.5-14.5); RDW Standard Deviation 54.2 fL (36.4-46.3); Red Blood Count 4.46 M/uL (4.20-5.40); White Blood Count 11.99 K/ul (4.8-10.8)
[2024-02-15 05:18] LABS: BUN Creatinine Ratio 24.6 (10-20); Calcium 9.2 mg/dl (8.6-10.3); Creatinine Clr Calc Pharmacy 45.4 ml/min; Est GFR (African American) 34.3 ml/min; Est GFR (Non-African American) 29.6 ml/min; Potassium 4.2 mmol/L (3.5-5.1)
--- NOTE | 2024-02-15 12:15 | Hospitalist Progress Note ---
Date of Service February 15, 2024 Assessment & Plan (1) Acute on chronic diastolic HF (heart failure): Plan: 68 y/o with chronic hypoxic and hypercarbic respiratory failure and tracheostomy admitted with increased dyspnea and hypoxia Combination of acute/chronic diastolic and right-sided CHF. Appears that weight was up at time of last discharge Rechecked limited echo to re-eval LV function -- unchanged from her prior echo. Will need proper and accurate documentation of input and outputs Patient currently on p.o. torsemide 40 mg daily and also [facility] on consult, pressure recommendations. (2) Acute encephalopathy: Plan: resolved likely was combination of toxic effects from narcotics and metabolic from hypoxia and alkalotic state. ammonia wnl, abg wthout hypercarbia was ONLY on 25mcg of fentanyl patch at home. Nursing found both a 12mcg patch AND a 25mcg patch on her skin 02/05. The 25mcg patch was removed & discarded. Moving forward will only use 12mcg patch. (3) Acute on chronic hypoxic respiratory failure: Plan: Resolved, patient is currently at baseline (4) Right-sided chest pain: Plan: Most likely musculoskeletal, reproducible on exam Troponins have been normal. (5) Chronic pain: Plan: chronic back pain and pain in right distal femur from an inoperable fracture. She was on Fentanyl patch 25mcg q3d at home (dose was recently increased from 12 to 25 patch in December) daughter expressed concern for increased sleepiness with this dose at time of this admission we reduced her total dose to 12mcg patch every 3 days (6) Type 2 diabetes mellitus: Plan: pharmacy glycemic consult following -BG 137-200 -last dose prednisone 02/11 is on insulin pump at home. 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 Is on her usual 20 bid replacement -follow BMP (14) Chronic kidney disease, stage 3: Plan: CKD stage 3b - primary terminal manager Dr. Drew -reviewed GFR with her family members has been 30-40 in our records back to 2018 when it was more consistently in low 40s. discussed effects of medications and volume status on GFR estimates/Cr DVT ppx - lovenox 40mg BID notes and PSH stated she has IVC filter but she denies this as does her family, I reviewed CT abdomen films from winter 2022 and recently in 2023 and agree I see no evidence of IVC filter -removed from PSH and problem list Plan PT, OT eval 02/09 got inout of chair with some difficulty, max 2PA assist normally can help transfer at home with her good (left) leg. Patient currently is a maximum assist of 2 for transfer and SNF is recommended. However from previous experience trying to place her it as well as been a struggle. Patient has a metal trach which may need SNF facility is unwilling to accept hide patient is not willing to change it over to a plastic trach. An alternative would be to continue Kelly lift however patient has resisted that in the past Admission and Anticipated Discharge Date Admission Date: February 03, 2024 Subjective Patient seen and examined today, was open physical therapy, however struggles with 2 people assist Review of Systems Review of Systems: All systems reviewed are negative, apart from the ones contained in the history. Physical Exam Physical Exam: The patient is awake, alert and oriented 3, well developed and well nourished, normocephalic and atraumatic, lying in bed and in no acute distress. Morbidly obese HEENT--PERRL, EOMI, mucous membranes and oropharynx mildly dry Neck--supple. No JVD. No bruits. Thyroid normal, trachea midline, no adenopathy. Tracheostomy incision Heart--normal S1 and S2. No murmurs, rubs or gallops. Lungs--clear bilaterally, no respiratory distress, no accessory muscle use. Abdomen--normal bowel sounds and soft. Extremities--no cyanosis or clubbing. No edema. Dermatologic--normal skin turgor, normal color, no abnormal lymph nodes, no rash. Neurologic--cranial nerves II through XII grossly intact. Rheumatologic--normal range of motion. Psychiatric--normal affect. Results & Data Results & Data Vital Signs (Past 12 Hours) Vital Signs Temp Pulse Pulse Resp BP Pulse Ox O2 Del Method 02/15/24 11:27 67 21 94 Room Air 02/15/24 08:05 98.1 F 72 24 142/71 H 97 Trach Collar 02/15/24 07:56 Room Air 02/15/24 07:46 71 16 91 Room Air 02/15/24 07:03 73 02/15/24 03:15 98.4 F 77 20 128/62 92 Trach Collar O2 Flow Rate FiO2 02/15/24 11:27 21 02/15/24 08:05 6 02/15/24 07:56 02/15/24 07:46 21 02/15/24 07:03 02/15/24 03:15 6 PG Care Time/CCT Total # of Minutes Spent Total Time Spent with Patient: Total time spent is greater than 50% in coordination of care (as documented) at patient's floor/unit and/or counseling patient: Coding Level of Care Code 96807 SUB INP/OBS CARE 2/35MIN Diagnoses Acute on chronic diastolic HF (heart failure) I50.33 Acute encephalopathy G93.40 Acute on chronic hypoxic respiratory failure J96.21 Right-sided chest pain R07.9 Chronic pain G89.29 Type 2 diabetes mellitus E11.9 Hypothyroidism E03.9 Chronic obstructive pulmonary disease J44.1 COPD type: COPD with acute exacerbation Obesity hypoventilation syndrome E66.2 Tracheostomy dependence Z93.0 Morbid obesity with BMI of 60.0-69.9, adult E66.01; Z68.44 GERD (gastroesophageal reflux disease) K21.9 Hypokalemia E87.6 Chronic kidney disease, stage 3 N18.30 Time Spent (min) 35 (8) Chronic obstructive pulmonary disease COPD type: COPD with acute exacerbation Qualified Code(s): J44.1 - Chronic obstructive pulmonary disease with (acute) exacerbation
--- NOTE | 2024-02-16 11:51 | Pharmacy Report ---
Pharmacy Glycemic Short Note 2 - Date of Service February 16, 2024 - Glycemic Short BSG Results (Last 24 hours): 02/15/24 02/15/24 02/15/24 12:17 16:58 20:23 POC Glucose 215 H 179 H 169 H 02/16/24 08:09 POC Glucose 166 H OUTPATIENT ANTIDIABETIC REGIMEN: * Novolog insulin pump * per last DM educator note in December 2023: * -basal: 106.5 units/day * -Carb ratio: 1.8 from 2849-2525, 3.1 from 1441-4171 * -SF: 10 from 2889-2562, 17 from 7940-8660 (BSG > 150 mg/dL) HbA1c: 8.1% (02/06/24) ASSESSMENT: 02/16/24: * Patient well controlled over the past 48 hours. She received 243 units of SQ insulin yesterday (70 units basal + 173 units bolus). * Fasting BSG trending upward: 137 ->142 -> 175 -> 166 mg/dL. Will slightly increase evening Lantus scale. * No other changes required. 02/13/24: * Blood sugars elevated yesterday * Received 192 units of insulin (50 units of basal and 142 units of bolus) * Last dose of prednisone yesterday, discontinued for this morning * Will empirically decrease basal insulin and carb ratio this morning 02/10/24: * Whit received 191 units of insulin yesterday (40 were basal, 20% of regimen) * Fasting BSGs typically within goal range or below goal range, she corrects we ll overnight, will try to avoid HS basal administration. Basal requirements inconsistent based on previous data from other admission. She has required anywhere from 30-120 units of basal insulin with and/or without steroids with no clear pattern. Fasting BSGs typically controlled. * She is on a 5 day course of prednisone 20mg ending 02/11. * BSG trending up throughout the day, will increase basal regimen slightly for a better basal-bolus balance. Carbohydrate ratio also tightened slightly. 02/09/24 * Significant decrease in insulin needs over the past 24 hours; total of 185 units administered (40 units basal and 145 units bolus) * Patient remains on prednisone 20 mg PO daily. * Persistent post prandial BSG elevation. Will tighten correction factor. 02/08/24: * Received 285 units of insulin yesterday (120 units of basal and 165 units of prandial/correctional bolus) * Steroids reduced yesterday (only one dose of methylprednisolone 30 mg IV given) and changed to prednisone daily * 60 units of Lantus was still given last evening despite dose instruction to call pharmacy if discontinued * Fasting blood sugar of 84 mg/dL this morning - likely related to full basal dose in evening despite IV steroid discontinuation * Will give significantly reduced basal dose today with prednisone 20 mg PO daily * Maintain aggressive Novolog parameters for now, will loosen if needed 02/07/24: * Blood sugars elevated yesterday, [phone] mg/dL w/ fasting BSG of 157 mg/dL this morning * Received 250 units of insulin (120 units of basal and 130 units of prandial/correctional bolus) * Steroids decreased to methylprednisolone 30 mg IV BID * Despite elevations - will continue same insulin dosing today with decrease in steroids * If still elevated, then will increase tomorrow 02/06/24: * DC is a 68 year old female w/ T2DM, well known to pharmacy glycemic service due to multiple inpatient consultations * Admitted on 02/03/24 for acute encephalopathy (multiple possible etiologies at this time) * Pharmacy consulted for glycemic management yesterday (02/04) afternoon * Ordered methylprednisolone 60 mg IV BID, will schedule Lantus with steroids PLAN FOR INPATIENT GLYCEMIC CONTROL: * Hold insulin pump * Basal insulin * Lantus 50 units SC daily * Lantus 15-25-30 units SC HS see eMAR for details * Bolus insulin * NovoLog per scale ACHS or Q6hrs while NPO * Goal Range: Low 110 mg/dL - High 140 mg/dL * Correction Factor: 6 mg/dL/unit * Nutritional / Prandial insulin per carb ratio of 1 unit per 1 grams CHO consumed
--- NOTE | 2024-02-16 12:19 | Hospitalist Progress Note ---
Date of Service February 16, 2024 Assessment & Plan (1) Acute on chronic diastolic HF (heart failure): Plan: 68 y/o with chronic hypoxic and hypercarbic respiratory failure and tracheostomy admitted with increased dyspnea and hypoxia Combination of acute/chronic diastolic and right-sided CHF. Appears that weight was up at time of last discharge Rechecked limited echo to re-eval LV function -- unchanged from her prior echo. Will need proper and accurate documentation of input and outputs Patient currently on p.o. torsemide 40 mg daily and also Jardiance Shortness of breath is much better, clinically much improved Continue to monitor input and output, daily weights (2) Acute encephalopathy: Plan: resolved likely was combination of toxic effects from narcotics and metabolic from hypoxia and alkalotic state. ammonia wnl, abg wthout hypercarbia was ONLY on 25mcg of fentanyl patch at home. Nursing found both a 12mcg patch AND a 25mcg patch on her skin 02/05. The 25mcg patch was removed & discarded. Moving forward will only use 12mcg patch. (3) Acute on chronic hypoxic respiratory failure: Plan: Resolved, patient is currently at baseline (4) Right-sided chest pain: Plan: Most likely musculoskeletal, reproducible on exam Troponins have been normal. (5) Chronic pain: Plan: chronic back pain and pain in right distal femur from an inoperable fracture. She was on Fentanyl patch 25mcg q3d at home (dose was recently increased from 12 to 25 patch in December) daughter expressed concern for increased sleepiness with this dose at time of this admission we reduced her total dose to 12mcg patch every 3 days (6) Type 2 diabetes mellitus: Plan: pharmacy glycemic consult following -BG 137-200 -last dose prednisone 02/11 is on insulin pump at home. 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 Is on her usual 20 bid replacement -follow BMP (14) Chronic kidney disease, stage 3: Plan: CKD stage 3b - primary accounts receivable processor Dr. Drew -reviewed GFR with her family members has been 30-40 in our records back to 2018 when it was more consistently in low 40s. discussed effects of medications and volume status on GFR estimates/Cr DVT ppx - lovenox 40mg BID notes and PSH stated she has IVC filter but she denies this as does her family, I reviewed CT abdomen films from winter 2022 and recently in 2023 and agree I see no evidence of IVC filter -removed from PSH and problem list Plan PT, OT eval 02/09 got inout of chair with some difficulty, max 2PA assist normally can help transfer at home with her good (left) leg. Patient currently is a maximum assist of 2 for transfer and SNF is recommended. However from previous experience trying to place her it as well as been a struggle. Patient has a metal trach which may need SNF facility is unwilling to accept hide patient is not willing to change it over to a plastic trach. An alternative would be to continue Kelly lift however patient has resisted that in the past Admission and Anticipated Discharge Date Admission Date: February 03, 2024 Subjective Patient seen and examined today, continues to work with physical therapy, however struggles with 2 people assist Review of Systems Review of Systems: All systems reviewed are negative, apart from the ones contained in the history. Physical Exam Physical Exam: The patient is awake, alert and oriented 3, well developed and well nourished, normocephalic and atraumatic, lying in bed and in no acute distress. Morbidly obese HEENT--PERRL, EOMI, mucous membranes and oropharynx mildly dry Neck--supple. No JVD. No bruits. Thyroid normal, trachea midline, no adenopathy. Tracheostomy incision Heart--normal S1 and S2. No murmurs, rubs or gallops. Lungs--clear bilaterally, no respiratory distress, no accessory muscle use. Abdomen--normal bowel sounds and soft. Extremities--no cyanosis or clubbing. No edema. Dermatologic--normal skin turgor, normal color, no abnormal lymph nodes, no rash. Neurologic--cranial nerves II through XII grossly intact. Rheumatologic--normal range of motion. Psychiatric--normal affect. Results & Data Results & Data Vital Signs (Past 12 Hours) Vital Signs Temp Pulse Pulse Resp BP Pulse Ox O2 Del Method 02/16/24 11:53 98.2 F 72 16 133/70 92 Room Air 02/16/24 11:19 84 16 92 Room Air 02/16/24 07:57 97.7 F 72 16 109/75 95 Room Air, Trach Collar 02/16/24 07:38 70 15 91 Room Air 02/16/24 07:34 68 02/16/24 03:53 97.5 F L 75 18 124/75 90 Room Air PG Care Time/CCT Total # of Minutes Spent Total Time Spent with Patient: Total time spent is greater than 50% in coordination of care (as documented) at patient's floor/unit and/or counseling patient: Coding Level of Care Code 38225 SUB INP/OBS CARE 2/35MIN Diagnoses Acute on chronic diastolic HF (heart failure) I50.33 Acute encephalopathy G93.40 Acute on chronic hypoxic respiratory failure J96.21 Right-sided chest pain R07.9 Chronic pain G89.29 Type 2 diabetes mellitus E11.9 Hypothyroidism E03.9 Chronic obstructive pulmonary disease J44.1 COPD type: COPD with acute exacerbation Obesity hypoventilation syndrome E66.2 Tracheostomy dependence Z93.0 Morbid obesity with BMI of 60.0-69.9, adult E66.01; Z68.44 GERD (gastroesophageal reflux disease) K21.9 Hypokalemia E87.6 Chronic kidney disease, stage 3 N18.30 Time Spent (min) 35 (8) Chronic obstructive pulmonary disease COPD type: COPD with acute exacerbation Qualified Code(s): J44.1 - Chronic obstructive pulmonary disease with (acute) exacerbation
[2024-02-16] MEDS: LIDOCAINE 5% 1 PATCH TD STA (18:46)
[2024-02-17 07:52] LABS: Hematocrit (blood only) 37.8 % (37.0-47.0); Hemoglobin 11.8 g/dl (12.0-16.0); Mean Corpuscular Hemoglobin 27.6 pg (25.0-34.0); Mean Corpuscular Hgb Conc 31.2 g/dL (32.0-36.0); Mean Corpuscular Volume 88.3 fL (80.0-100.0); Mean Platelet Volume 10.1 fL (9.4-12.4); Platelet Count 245 K/uL (130-400); RDW Coefficient of Variation 17.2 % (11.5-14.5); RDW Standard Deviation 54.3 fL (36.4-46.3); Red Blood Count 4.28 M/uL (4.20-5.40)
[2024-02-17 08:03] LABS: Calcium 9.1 mg/dl (8.6-10.3); Potassium 3.9 mmol/L (3.5-5.1)
[2024-02-17 08:09] LABS: BUN Creatinine Ratio 24.2 (10-20); Creatinine Clr Calc Pharmacy 51.8 ml/min; Est GFR (African American) 40.4 ml/min; Est GFR (Non-African American) 34.8 ml/min
--- NOTE | 2024-02-17 10:58 | Pharmacy Report ---
Pharmacy Glycemic Short Note 2 - Date of Service February 17, 2024 - Glycemic Short BSG Results (Last 24 hours): 02/16/24 02/16/24 02/16/24 12:11 17:13 20:15 Glucose POC Glucose 243 H 165 H 199 H 02/17/24 02/17/24 07:10 08:24 Glucose 146 H POC Glucose 167 H OUTPATIENT ANTIDIABETIC REGIMEN: * Novolog insulin pump (setting below from CDE note in 12/2023): * Basal: 106.5 units/day * Carb ratio: 1.8 from 4108-1289, 3.1 from 4336-8269 * SF: 10 from 2789-5275, 17 from 5211-1114 (BSG > 150 mg/dL) * HbA1c: 8.1% (02/06/24) ASSESSMENT: 02/16: * Whit received 267 units of insulin yesterday, 75 units basal + 192 units bolus. BSGs were: [phone] mg/dL. * Fasting BSG was 167 mg/dL this AM. Will increase PM basal scale today. * No changes to Novolog. No stressors. Tolerating diet. 02/15: * Patient well controlled over the past 48 hours. She received 243 units of SQ insulin yesterday (70 units basal + 173 units bolus). * Fasting BSG trending upward: 137 ->142 -> 175 -> 166 mg/dL. Will slightly increase evening Lantus scale. * No other changes required. 02/12: * Blood sugars elevated yesterday * Received 192 units of insulin (50 units of basal and 142 units of bolus) * Last dose of prednisone yesterday, discontinued for this morning * Will empirically decrease basal insulin and carb ratio this morning 02/09: * Whit received 191 units of insulin yesterday (40 were basal, 20% of regim en) * Fasting BSGs typically within goal range or below goal range, she corrects well overnight, will try to avoid HS basal administration. Basal requirements inconsistent based on previous data from other admission. She has required anywhere from 30-120 units of basal insulin with and/or without steroids with no clear pattern. Fasting BSGs typically controlled. * She is on a 5 day course of prednisone 20mg ending 02/11. * BSG trending up throughout the day, will increase basal regimen slightly for a better basal-bolus balance. Carbohydrate ratio also tightened slightly. 02/08: * Significant decrease in insulin needs over the past 24 hours; total of 185 units administered (40 units basal and 145 units bolus) * Patient remains on prednisone 20 mg PO daily. * Persistent post prandial BSG elevation. Will tighten correction factor. 02/07: * Received 285 units of insulin yesterday (120 units of basal and 165 units of prandial/correctional bolus) * Steroids reduced yesterday (only one dose of methylprednisolone 30 mg IV given) and changed to prednisone daily * 60 units of Lantus was still given last evening despite dose instruction to call pharmacy if discontinued * Fasting blood sugar of 84 mg/dL this morning - likely related to full basal dose in evening despite IV steroid discontinuation * Will give significantly reduced basal dose today with prednisone 20 mg PO daily * Maintain aggressive Novolog parameters for now, will loosen if needed 02/06: * Blood sugars elevated yesterday, [phone] mg/dL w/ fasting BSG of 157 mg/dL this morning * Received 250 units of insulin (120 units of basal and 130 units of prandial/correctional bolus) * Steroids decreased to methylprednisolone 30 mg IV BID * Despite elevations - will continue same insulin dosing today with decrease in steroids * If still elevated, then will increase tomorrow 02/05: * DC is a 68 year old female w/ T2DM, well known to pharmacy glycemic service due to multiple inpatient consultations * Admitted on 02/03/24 for acute encephalopathy (multiple possible etiologies at this time) * Pharmacy consulted for glycemic management yesterday (02/04) afternoon * Ordered methylprednisolone 60 mg IV BID, will schedule Lantus with steroids PLAN FOR INPATIENT GLYCEMIC CONTROL: * Hold insulin pump * Basal insulin * Lantus 50 units SC AM * Lantus 20-25-30 units SC HS (see eMAR for details) * Bolus insulin * NovoLog per scale ACHS or Q6hrs while NPO * Goal Range: Low 110 mg/dL - High 140 mg/dL * Correction Factor: 6 mg/dL/unit * Nutritional / Prandial insulin per carb ratio of 1 unit per 1 grams CHO consumed
--- NOTE | 2024-02-17 11:31 | Hospitalist Progress Note ---
Date of Service February 17, 2024 Assessment & Plan (1) Acute on chronic diastolic HF (heart failure): Plan: 68 y/o with chronic hypoxic and hypercarbic respiratory failure and tracheostomy admitted with increased dyspnea and hypoxia Combination of acute/chronic diastolic and right-sided CHF. Appears that weight was up at time of last discharge Rechecked limited echo to re-eval LV function -- unchanged from her prior echo. Will need proper and accurate documentation of input and outputs Patient currently on p.o. torsemide 40 mg daily and also Jardiance Shortness of breath is much better, clinically much improved Continue to monitor input and output, daily weights (2) Acute encephalopathy: Plan: resolved Patient has been completely weaned off fentanyl. Please do not discharge her home on fentanyl (3) Acute on chronic hypoxic respiratory failure: Plan: Resolved, patient is currently at baseline (4) Right-sided chest pain: Plan: Most likely musculoskeletal, reproducible on exam Troponins have been normal. (5) Chronic pain: Plan: chronic back pain and pain in right distal femur from an inoperable fracture. daughter expressed concern for increased sleepiness with high doses of fentanyl. During this hospital stay, she has been completely weaned off fentanyl. She is currently doing well with p.o. oxycodone and also lidocaine patch (6) Type 2 diabetes mellitus: Plan: pharmacy glycemic consult following -BG 137-200 -last dose prednisone 02/11 is on insulin pump at home. 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 Is on her usual 20 bid replacement -follow BMP (14) Chronic kidney disease, stage 3: Plan: CKD stage 3b - primary edi consultant Dr. Drew -reviewed GFR with her family members has been 30-40 in our records back to 2018 when it was more consistently in low 40s. discussed effects of medications and volume status on GFR estimates/Cr DVT ppx - lovenox 40mg BID notes and [facility] stated she has IVC filter but she denies this as does her family, I reviewed CT abdomen films from winter 2022 and recently in 2023 and agree I see no evidence of IVC filter -removed from PSH and problem list Plan PT, CHIQUITA latham 02/09 got inout of chair with some difficulty, max 2PA assist normally can help transfer at home with her good (left) leg. Patient currently is a maximum assist of 2 for transfer and SNF is recommended. However from previous experience trying to place her it as well as been a struggle. Patient has a metal trach which may need SNF facility is unwilling to accept hide patient is not willing to change it over to a plastic trach. An alternative would be to continue Kelly lift however patient has resisted that in the past Admission and Anticipated Discharge Date Admission Date: February 03, 2024 Subjective Patient seen and examined today, continues to work with physical therapy, Review of Systems Review of Systems: All systems reviewed are negative, apart from the ones contained in the history. Physical Exam Physical Exam: The patient is awake, alert and oriented 3, well developed and well nourished, normocephalic and atraumatic, lying in bed and in no acute distress. Morbidly obese HEENT--PERRL, EOMI, mucous membranes and oropharynx mildly dry Neck--supple. No JVD. No bruits. Thyroid normal, trachea midline, no adenopathy. Tracheostomy incision Heart--normal S1 and S2. No murmurs, rubs or gallops. Lungs--clear bilaterally, no respiratory distress, no accessory muscle use. Abdomen--normal bowel sounds and soft. Extremities--no cyanosis or clubbing. No edema. Dermatologic--normal skin turgor, normal color, no abnormal lymph nodes, no rash. Neurologic--cranial nerves II through XII grossly intact. Rheumatologic--normal range of motion. Psychiatric--normal affect. Results & Data Results & Data Vital Signs (Past 12 Hours) Vital Signs Temp Pulse Pulse Resp BP BP Pulse Ox 02/17/24 08:00 02/17/24 07:59 74 02/17/24 07:54 98.2 F 75 18 122/76 92 02/17/24 07:25 71 18 92 02/17/24 02:22 98.1 F 79 18 125/72 91 02/17/24 00:00 84 O2 Del Method O2 Flow Rate 02/17/24 08:00 Trach Collar 6 02/17/24 07:59 02/17/24 07:54 Room Air 02/17/24 07:25 Room Air 02/17/24 02:22 Room Air 02/17/24 00:00 PG Care Time/CCT Total # of Minutes Spent Total Time Spent with Patient: Total time spent is greater than 50% in coordination of care (as documented) at patient's floor/unit and/or counseling patient: Coding Level of Care Code 98048 SUB INP/OBS CARE 2/35MIN Diagnoses Acute on chronic diastolic HF (heart failure) I50.33 Acute encephalopathy G93.40 Acute on chronic hypoxic respiratory failure J96.21 Right-sided chest pain R07.9 Chronic pain G89.29 Type 2 diabetes mellitus E11.9 Hypothyroidism E03.9 Chronic obstructive pulmonary disease J44.1 COPD type: COPD with acute exacerbation Obesity hypoventilation syndrome E66.2 Tracheostomy dependence Z93.0 Morbid obesity with BMI of 60.0-69.9, adult E66.01; Z68.44 GERD (gastroesophageal reflux disease) K21.9 Hypokalemia E87.6 Chronic kidney disease, stage 3 N18.30 Time Spent (min) 35 (8) Chronic obstructive pulmonary disease COPD type: COPD with acute exacerbation Qualified Code(s): J44.1 - Chronic obstructive pulmonary disease with (acute) exacerbation
[2024-02-17] MEDS ORDERED: Nursing to Pharmacy Communication SCH (19:30)
[2024-02-17] MEDS: oxyCODONE HCL IR 5 MG TAB (IMMEDIATE RELEASE) PO PRN (20:52)
[2024-02-18] MEDS: LANTUS PER UNIT CHARGE SC SCH (09:08)
--- NOTE | 2024-02-18 10:33 | Hospitalist Progress Note ---
Date of Service February 18, 2024 Assessment & Plan (1) Acute on chronic diastolic HF (heart failure): Plan: 68 y/o with chronic hypoxic and hypercarbic respiratory failure and tracheostomy admitted with increased dyspnea and hypoxia Combination of acute/chronic diastolic and right-sided CHF. Appears that weight was up at time of last discharge Rechecked limited echo to re-eval LV function -- unchanged from her prior echo. Patient currently on p.o. torsemide 40 mg daily and also Jardiance Shortness of breath is much better, clinically much improved Continue to monitor input and output, daily weights I doubt if the input and output chart is accurate. Showed negative fluid balance only 15 cc over last 24 hours (2) Acute encephalopathy: Plan: resolved Patient has been completely weaned off fentanyl. Please do not discharge her home on fentanyl (3) Acute on chronic hypoxic respiratory failure: Plan: Resolved, patient is currently at baseline (4) Right-sided chest pain: Plan: Most likely musculoskeletal, reproducible on exam Troponins have been normal. (5) Chronic pain: Plan: chronic back pain and pain in right distal femur from an inoperable fracture. daughter expressed concern for increased sleepiness with high doses of fentanyl. During this hospital stay, she has been completely weaned off fentanyl. She is currently doing well with p.o. oxycodone and also lidocaine patch (6) Type 2 diabetes mellitus: Plan: pharmacy glycemic consult following -BG 137-200 -last dose prednisone 02/11 is on insulin pump at home. (7) Hypothyroidism: Plan: TSH stable 12/2023 Continue Synthroid (8) Chronic obstructive pulmonary disease: Plan: Wheezing - suspect mostly was due to pulmonary edema possible component of COPD exac, see above (9) Obesity hypoventilation syndrome: Plan: known dx with trach in place (10) Tracheostomy dependence: Plan: metal trach, patient refuses to switch to plastic trach (11) Morbid obesity with BMI of 60.0-69.9, adult: Plan: BMI 67 (12) GERD (gastroesophageal reflux disease): Plan: cont PPI (13) Hypokalemia: Plan: Replaced resolved. 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 Drew -reviewed GFR with her family members has been 30-40 in our records back to 2018 when it was more consistently in low 40s. discussed effects of medications and volume status on GFR estimates/Cr DVT ppx - lovenox 40mg BID notes and PSH stated she has IVC filter but she denies this as does her family, I reviewed CT abdomen films from winter 2022 and recently in 2023 and agree I see no evidence of IVC filter -removed from PSH and problem list Plan PT, OT noa 02/09 got inout of chair with some difficulty, max 2PA assist normally can help transfer at home with her good (left) leg. Patient currently is a maximum assist of 2 for transfer and SNF is recommended. However from previous experience trying to place her it as well as been a struggle. Patient has a metal trach which may need SNF facility is unwilling to accept hide patient is not willing to change it over to a plastic trach. An alt ernative would be to continue Kelly lift however patient has resisted that in the past Admission and Anticipated Discharge Date Admission Date: February 03, 2024 Subjective Patient seen and examined today, continues to work with physical therapy, Review of Systems Review of Systems: All systems reviewed are negative, apart from the ones contained in the history. Physical Exam Physical Exam: The patient is awake, alert and oriented 3, well developed and well nourished, normocephalic and atraumatic, lying in bed and in no acute distress. Morbidly obese HEENT--PERRL, EOMI, mucous membranes and oropharynx mildly dry Neck--supple. No JVD. No bruits. Thyroid normal, trachea midline, no adenopathy. Tracheostomy incision Heart--normal S1 and S2. No murmurs, rubs or gallops. Lungs--clear bilaterally, no respiratory distress, no accessory muscle use. Abdomen--normal bowel sounds and soft. Extremities--no cyanosis or clubbing. No edema. Dermatologic--normal skin turgor, normal color, no abnormal lymph nodes, no rash. Neurologic--cranial nerves II through XII grossly intact. Rheumatologic--normal range of motion. Psychiatric--normal affect. Results & Data Results & Data Vital Signs (Past 12 Hours) Vital Signs Temp Pulse Pulse Resp BP BP Pulse Ox 02/18/24 10:31 80 18 94 02/18/24 07:29 97.9 F 89 18 153/70 H 93 03/30/24 07:18 89 18 92 02/18/24 07:17 73 02/18/24 03:29 97.7 F 76 16 130/70 92 02/18/24 03:00 92 H O2 Del Method 02/18/24 10:31 Room Air 02/18/24 07:29 Room Air 02/18/24 07:18 Room Air 02/18/24 07:17 02/18/24 03:29 Room Air 02/18/24 03:00 PG Care Time/CCT Total # of Minutes Spent Total Time Spent with Patient: Total time spent is greater than 50% in coordination of care (as documented) at patient's floor/unit and/or counseling patient: Coding Level of Care Code 09839 SUB INP/OBS CARE 235MIN Diagnoses Acute on chronic diastolic HF (heart failure) I50.33 Acute encephalopathy G93.40 Acute on chronic hypoxic respiratory failure J96.21 Right-sided chest pain R07.9 Chronic pain G89.29 Type 2 diabetes mellitus E11.9 Hypothyroidism E03.9 Chronic obstructive pulmonary disease J44.1 COPD type: COPD with acute exacerbation Obesity hypoventilation syndrome E66.2 Tracheostomy dependence Z93.0 Morbid obesity with BMI of 60.0-69.9, adult E66.01; Z68.44 GERD (gastroesophageal reflux disease) K21.9 Hypokalemia E87.6 Chronic kidney disease, stage 3 N18.30 Time Spent (min) 35 (8) Chronic obstructive pulmonary disease COPD type: COPD with acute exacerbation Qualified Code(s): J44.1 - Chronic obstructive pulmonary disease with (acute) exacerbation
[2024-02-18] MEDS: oxyCODONE HCL IR 5 MG TAB (IMMEDIATE RELEASE) PO PRN (20:51)
[2024-02-18] MEDS: ALUMINUM/MAGNESIUM SUSP 30 ML UDC PO PRN (20:52)
[2024-02-18] MEDS: ACETAMINOPHEN 325 MG TAB PO PRN (23:52)
[2024-02-19 07:45] LABS: BUN Creatinine Ratio 23.1 (10-20); Calcium 9.2 mg/dl (8.6-10.3); Creatinine Clr Calc Pharmacy 54.3 ml/min; Est GFR (African American) 42.4 ml/min; Est GFR (Non-African American) 36.6 ml/min
--- NOTE | 2024-02-19 10:59 | Hospitalist Progress Note ---
Date of Service February 19, 2024 Assessment & Plan (1) Acute on chronic diastolic HF (heart failure): Plan: 68 y/o with chronic hypoxic and hypercarbic respiratory failure and tracheostomy admitted with increased dyspnea and hypoxia Combination of acute/chronic diastolic and right-sided CHF. Appears that weight was up at time of last discharge Rechecked limited echo to re-eval LV function -- unchanged from her prior echo. Patient currently on p.o. torsemide 40 mg daily and also Jardiance Shortness of breath is much better, clinically much improved Continue to monitor input and output, daily weights I doubt if the input and output chart is accurate. Showed negative fluid balance only 15 cc over last 24 hours (2) Acute encephalopathy: Plan: Now resolved Patient has been completely weaned off fentanyl. Please do not discharge her home on fentanyl (3) Acute on chronic hypoxic respiratory failure: Plan: Resolved, patient is currently at baseline (4) Right-sided chest pain: Plan: Most likely musculoskeletal, reproducible on exam Troponins have been normal. (5) Chronic pain: Plan: chronic back pain and pain in right distal femur from an inoperable fracture. daughter expressed concern for increased sleepiness with high doses of fentanyl. During this hospital stay, she has been completely weaned off fentanyl. She is currently doing well with p.o. oxycodone and also lidocaine patch (6) Type 2 diabetes mellitus: Plan: pharmacy glycemic consult following -BG 137-200 -last dose prednisone 02/11 is on insulin pump at home. (7) Hypothyroidism: Plan: TSH stable 12/2023 Continue Synthroid (8) Chronic obstructive pulmonary disease: Plan: Wheezing - suspect mostly was due to pulmonary edema possible component of COPD exac, see above (9) Obesity hypoventilation syndrome: Plan: known dx with trach in place (10) Tracheostomy dependence: Plan: metal trach, patient refuses to switch to plastic trach (11) Morbid obesity with BMI of 60.0-69.9, adult: Plan: BMI 67 (12) GERD (gastroesophageal reflux disease): Plan: cont PPI (13) Hypokalemia: Plan: Replaced resolved. 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 Drew -reviewed GFR with her family members has been 30-40 in our records back to 2018 when it was more consistently in low 40s. discussed effects of medications and volume status on GFR estimates/Cr DVT ppx - lovenox 40mg BID notes and PS stated she has IVC filter but she denies this as does her family, I reviewed CT abdomen films from winter 2022 and recently in 2023 and agree I see no evidence of IVC filter -removed from PSH and problem list (15) Physical deconditioning: Plan: Patient continues to work with physical therapy Plan PT OT on board normally can help transfer at home with her good (left) leg. Patient currently is a maximum assist of 2 for transfer and SNF is recommended. However from previous experience trying to place her it as well as been a struggle. Patient has a metal trach which may need SNF facility is unwilling to accept hide patient is not willing to change it over to a plastic trach. An alternative would be to continue Kelly lift however patient has resisted that in the past Admission and Anticipated Discharge Date Admission Date: February 03, 2024 Subjective Patient seen and examined today, continues to work with physical therapy, Review of Systems Review of Systems: All systems reviewed are negative, apart from the ones contained in the history. Physical Exam Physical Exam: The patient is awake, alert and oriented 3, well developed and well nourished, normocephalic and atraumatic, lying in bed and in no acute distress. Morbidly obese HEENT--PERRL, EOMI, mucous membranes and oropharynx mildly dry Neck--supple. No JVD. No bruits. Thyroid normal, trachea midline, no adenopathy. Tracheostomy incision Heart--normal S1 and S2. No murmurs, rubs or gallops. Lungs--clear bilaterally, no respiratory distress, no accessory muscle use. Abdomen--normal bowel sounds and soft. Extremities--no cyanosis or clubbing. No edema. Dermatologic--normal skin turgor, normal color, no abnormal lymph nodes, no rash. Neurologic--cranial nerves II through XII grossly intact. Rheumatologic--normal range of motion. Psychiatric--normal affect. Results & Data Results & Data Vital Signs (Past 12 Hours) Vital Signs Temp Pulse Pulse Resp BP Pulse Ox O2 Del Method 02/19/24 08:03 71 18 91 Room Air 02/19/24 07:45 Room Air 02/19/24 07:30 97.9 F 83 18 118/68 95 Room Air 02/19/24 06:51 71 02/19/24 04:00 97.9 F 77 18 123/77 93 Room Air 02/18/24 23:22 98.6 F 83 20 127/72 90 Room Air 02/18/24 23:11 98 H PG Care Time/CCT Total # of Minutes Spent Total Time Spent with Patient: Total time spent is greater than 50% in coordination of care (as documented) at patient's floor/unit and/or counseling patient: Coding Level of Care Code 20119 SUB INP/OBS CARE 2/35MIN Diagnoses Acute on chronic diastolic HF (heart failure) I50.33 Acute encephalopathy G93.40 Acute on chronic hypoxic respiratory failure J96.21 Right-sided chest pain R07.9 Chronic pain G89.29 Type 2 diabetes mellitus E11.9 Hypothyroidism E03.9 Chronic obstructive pulmonary disease J44.1 COPD type: COPD with acute exacerbation Obesity hypoventilation syndrome E66.2 Tracheostomy dependence Z93.0 Morbid obesity with BMI of 60.0-69.9, adult E66.01; Z68.44 GERD (gastroesophageal reflux disease) K21.9 Hypokalemia E87.6 Chronic kidney disease, stage 3 N18.30 Physical deconditioning R53.81 Time Spent (min) 35 (8) Chronic obstructive pulmonary disease COPD type: COPD with acute exacerbation Qualified Code(s): J44.1 - Chronic obstructive pulmonary disease with (acute) exacerbation
[2024-02-19] MEDS: LIDOCAINE 5% 1 PATCH TD SCH (11:37)
--- NOTE | 2024-02-20 09:04 | Pharmacy Report ---
Pharmacy Glycemic Short Note 2 - Date of Service February 20, 2024 - Glycemic Short BSG Results (Last 24 hours): 02/19/24 02/19/24 02/19/24 11:34 16:50 20:10 POC Glucose 219 H 196 H 221 H 02/20/24 08:03 POC Glucose 131 H OUTPATIENT ANTIDIABETIC REGIMEN: * Novolog insulin pump (setting below from CDE note in 12/2023): * Basal: 106.5 units/day * Carb ratio: 1.8 from 5824-0114, 3.1 from 1431-6663 * SF: 10 from 6183-0868, 17 from 8211-1634 (BSG > 150 mg/dL) * HbA1c: 8.1% (02/06/24) ASSESSMENT: 02/19: * Patient averaged 308 units of insulin per day over the weekend. Yesterday received 95 units basal + 216 units bolus. BSGs remain uncontrolled: [phone] mg/dL. * Over the weekend, CF was tightened and HS basal scale was increased. * Original plan was to increase basal HS dose today as patient's regimen is so bolus heavy, but with fasting returning this AM in goal range (132 mg/dL), hesitant to make any basal changes today. * Novolog coverage is extremely tight so even minor changes can result in large increases in insulin doses. Will not make any changes to Novolog today. Would be satisfied with all BSGs < 200 mg/dL. 02/16: * Whit received 267 units of insulin yesterday, 75 units basal + 192 units bolus. BSGs were: [phone] mg/dL. * Fasting BSG was 167 mg/dL this AM. Will increase PM basal scale today. * No changes to Novolog. No stressors. Tolerating diet. 02/15: * Patient well controlled over the past 48 hours. She received 243 units of SQ insulin yesterday (70 units basal + 173 units bolus). * Fasting BSG trending upward: 137 ->142 -> 175 -> 166 mg/dL. Will slightly increase evening Lantus scale. * No other changes required. 02/12: * Blood sugars elevated yesterday * Received 192 units of insulin (50 units of basal and 142 units of bolus) * Last dose of prednisone yesterday, discontinued for this morning * Will empirically decrease basal insulin and carb ratio this morning 3/22: * Whit received 191 units of insulin yesterday (40 were basal, 20% of regimen) * Fasting BSGs typically within goal range or below goal range, she corrects well overnight, will try to avoid HS basal administration. Basal requirements inconsistent based on previous data from other admission. She has required anywhere from 30-120 units of basal insulin with and/or without steroids with no clear pattern. Fasting BSGs typically controlled. * She is on a 5 day course of prednisone 20mg ending 02/11. * BSG trending up throughout the day, will increase basal regimen slightly for a better basal-bolus balance. Carbohydrate ratio also tightened slightly. 02/08: * Significant decrease in insulin needs over the past 24 hours; total of 185 units administered (40 units basal and 145 units bolus) * Patient remains on prednisone 20 mg PO daily. * Persistent post prandial BSG elevation. Will tighten correction factor. 02/07: * Received 285 units of insulin yesterday (120 units of basal and 165 units of prandial/correctional bolus) * Steroids reduced yesterday (only one dose of methylprednisolone 30 mg IV given) and changed to prednisone daily * 60 units of Lantus was still given last evening despite dose instruction to call pharmacy if discontinued * Fasting blood sugar of 84 mg/dL this morning - likely related to full basal dose in evening despite IV steroid discontinuation * Will give significantly reduced basal dose today with prednisone 20 mg PO daily * Maintain aggressive Novolog parameters for now, will loosen if needed 02/06: * Blood sugars elevated yesterday, [phone] mg/dL w/ fasting BSG of 157 mg/dL this morning * Received 250 units of insulin (120 units of basal and 130 units of prandial/correctional bolus) * Steroids decreased to methylprednisolone 30 mg IV BID * Despite elevations - will continue same insulin dosing today with decrease in steroids * If still elevated, then will increase tomorrow 02/05: * DC is a 68 year old female w/ T2DM, well known to pharmacy glycemic service due to multiple inpatient consultations * Admitted on 02/03/24 for acute encephalopathy (multiple possible etiologies at this time) * Pharmacy consulted for glycemic management yesterday (02/04) afternoon * Ordered methylprednisolone 60 mg IV BID, will schedule Lantus with steroids PLAN FOR INPATIENT GLYCEMIC CONTROL: * Hold insulin pump * Basal insulin * Lantus 60 units SC AM * Lantus 25-30-35 units SC HS (see eMAR for details) * Bolus insulin * NovoLog per scale ACHS or Q6hrs while NPO * Goal Range: Low 110 mg/dL - High 140 mg/dL * Correction Factor: 5 mg/dL/unit * Nutritional / Prandial insulin per carb ratio of 1 unit per 1 grams CHO consumed
--- NOTE | 2024-02-20 13:31 | Hospitalist Progress Note ---
Date of Service February 20, 2024 Assessment & Plan (1) Acute on chronic diastolic HF (heart failure): Plan: Present on admission. Now resolved with diuresis. Monitor intake and output. (2) Acute encephalopathy: Plan: Acute toxic encephalopathy present on admission. Now resolved . Thought to be due to fentanyl patch which she is off of now (3) Acute on chronic hypoxic respiratory failure: Plan: Present on admission. Now resolved. (4) Right-sided chest pain: Plan: Noncardiac. No evidence of acute coronary syndrome. Troponins have been normal. (5) Chronic pain: Plan: chronic back pain and pain in right distal femur from an inoperable fracture. Daughter expressed concern for increased sleepiness with high doses of fentanyl. Fentanyl has been discontinued. She is currently doing well with as needed oxycodone and also lidocaine patch (6) Type 2 diabetes mellitus: Plan: pharmacy glycemic consult appreciated. She is on an insulin pump. ADA diet (7) Hypothyroidism: Plan: Stable. Continue Synthroid (8) Chronic obstructive pulmonary disease: Plan: She is now back to her baseline after CHF has resolved. Continue current medical management (9) Obesity hypoventilation syndrome: Plan: known dx with permanent trach in place (10) Morbid obesity with BMI of 60.0-69.9, adult: Plan: BMI 67. Significant weight loss recommended (11) Hypokalemia: Plan: Replaced. Now resolved. Serial labs (12) Chronic kidney disease, stage 3: Plan: Monitor intake and output. Serial labs Plan She is reconsidering SNF placement. Continue PT and OT while hospitalized Admission and Anticipated Discharge Date Admission Date: February 03, 2024 Subjective Alert and oriented. No distress She adamantly refuses to consider temporary placement at an SNF facility but I talked to her for quite some time. She is re-considering. Review of Systems 2 Review of Systems: Constitutional-no fever or chills ENT-no blurred vision, no double vision, no epistaxis, no sore throat Respiratory-no cough, no wheezing. Easily short of breath with exertion Cardiac-no palpitations, no chest pain, no syncope GI-no nausea, vomiting, diarrhea, melena, hematochezia -no urinary retention, no urinary incontinence, no dysuria, no hematuria Musculoskeletal-no joint pain, no muscle tenderness Skin-no bruising, no rashes, no pruritus Neuro-no isolated weakness, no paresthesia Psych-no depression, no anxiety Physical Exam 2 Physical Exam: General-alert and oriented x3, no fever, no chills. Morbidly obese HEENT-head atraumatic and normocephalic, pupils equal and reactive to light, extraocular muscles intact Neck-no lymphadenopathy or thyromegaly, trachea midline. Permanent tracheostomy in place Chest-clear to auscultation. No rales, wheezing or rhonchi Cardiac-regular rate and rhythm, normal S1 and S2 Abdomen-normal bowel sounds, nontender, no hepatosplenomegaly Extremities-no cyanosis, clubbing. Chronic bilateral lower extremity edema below the knees Neuro-cranial nerves II through XII intact, motor and sensory function within normal limits, strength symmetrical, no focal deficits Psych-normal affect, normal mood Results & Data Results & Data Vital Signs (Past 12 Hours) Vital Signs Temp Pulse Pulse Resp BP BP Pulse Ox 02/20/24 11:39 76 17 93 02/20/24 11:18 36.7 C 82 18 140/66 91 02/20/24 08:00 02/20/24 07:41 78 15 96 02/20/24 07:29 80 02/20/24 07:25 36.5 C 80 18 141/73 H 92 02/20/24 03:54 36.4 C L 85 20 133/74 90 O2 Del Method FiO2 02/20/24 11:39 Room Air 02/20/24 11:18 Room Air 02/20/24 08:00 Room Air 02/20/24 07:41 Room Air 21 02/20/24 07:29 02/20/24 07:25 Room Air 02/20/24 03:54 Trach Collar Laboratory Results 02/17/24 07:10 02/19/24 06:03 PG Care Time/CCT Total # of Minutes Spent Total Time Spent with Patient: Total time spent is greater than 50% in coordination of care (as documented) at patient's floor/unit and/or counseling patient: Coding Level of Care Code 12856 SUB INP/OBS CARE 3/50MIN Diagnoses Acute on chronic diastolic HF (heart failure) I50.33 Acute encephalopathy G93.40 Acute on chronic hypoxic respiratory failure J96.21 Right-sided chest pain R07.9 Chronic pain G89.29 Type 2 diabetes mellitus E11.9 Hypothyroidism E03.9 Chronic obstructive pulmonary disease J44.1 COPD type: COPD with acute exacerbation Obesity hypoventilation syndrome E66.2 Morbid obesity with BMI of 60.0-69.9, adult E66.01; Z68.44 Hypokalemia E87.6 Chronic kidney disease, stage 3 N18.30 (8) Chronic obstructive pulmonary disease COPD type: COPD with acute exacerbation Qualified Code(s): J44.1 - Chronic obstructive pulmonary disease with (acute) exacerbation
--- NOTE | 2024-02-21 13:12 | Pharmacy Report ---
Pharmacy Glycemic Short Note 2 - Date of Service February 21, 2024 - Glycemic Short BSG Results (Last 24 hours): 02/20/24 02/20/24 02/21/24 17:03 20:10 07:51 POC Glucose 179 H 247 H 159 H 02/21/24 11:50 POC Glucose 215 H OUTPATIENT ANTIDIABETIC REGIMEN: * Novolog insulin pump (setting below from CDE note in 12/2023): * Basal: 106.5 units/day * Carb ratio: 1.8 from 9632-1502, 3.1 from 8848-8426 * SF: 10 from 4986-2139, 17 from 8318-3455 (BSG > 150 mg/dL) * HbA1c: 8.1% (02/06/24) ASSESSMENT: 02/20: * Patient's HS basal dose has been adjusted slightly, as fasting BSG more appropriate to do so today. * Carb ratio tightened slightly this morning to provide additional carb coverage. Will continue to exercise caution in these adjustments, d/t how aggressive her parameters already are. * Pharmacy will continue to monitor and adjust regimen as indicated. 02/19: * Patient averaged 308 units of insulin per day over the weekend. Yesterday received 95 units basal + 216 units bolus. BSGs remain uncontrolled: [phone] mg/dL. * Over the weekend, CF was tightened and HS basal scale was increased. * Original plan was to increase basal HS dose today as patient's regimen is so bolus heavy, but with fasting returning this AM in goal range (132 mg/dL), hesitant to make any basal changes today. * Novolog coverage is extremely tight so even minor changes can result in large increases in insulin doses. Will not make any changes to Novolog today. Would be satisfied with all BSGs < 200 mg/dL. 02/16: * Whit received 267 units of insulin yesterday, 75 units basal + 192 units bolus. BSGs were: [phone] mg/dL. * Fasting BSG was 167 mg/dL this AM. Will increase PM basal scale today. * No changes to Novolog. No stressors. Tolerating diet. 02/15: * Patient well controlled over the past 48 hours. She received 243 units of SQ insulin yesterday (70 units basal + 173 units bolus). * Fasting BSG trending upward: 137 ->142 -> 175 -> 166 mg/dL. Will slightly increase evening Lantus scale. * No other changes required. 02/12: * Blood sugars elevated yesterday * Received 192 units of insulin (50 units of basal and 142 units of bolus) * Last dose of prednisone yesterday, discontinued for this morning * Will empirically decrease basal insulin and carb ratio this morning 02/09: * Whit received 191 units of insulin yesterday (40 were basal, 20% of regimen) * Fasting BSGs typically within goal range or below goal range, she corrects well overnight, will try to avoid HS basal administration. Basal requirements inconsistent based on previous data from other admission. She has required anywhere from 30-120 units of basal insulin with and/or without steroids with no clear pattern. Fasting BSGs typically controlled. * She is on a 5 day course of prednisone 20mg ending 02/11. * BSG trending up throughout the day, will increase basal regimen slightly for a better basal-bolus balance. Carbohydrate ratio also tightened slightly. 02/08: * Significant decrease in insulin needs over the past 24 hours; total of 185 units administered (40 units basal and 145 units bolus) * Patient remains on prednisone 20 mg PO daily. * Persistent post prandial BSG elevation. Will tighten correction factor. 02/07: * Received 285 units of insulin yesterday (120 units of basal and 165 units of prandial/correctional bolus) * Steroids reduced yesterday (only one dose of methylprednisolone 30 mg IV given) and changed to prednisone daily * 60 units of Lantus was still given last evening despite dose instruction to call pharmacy if discontinued * Fasting blood sugar of 84 mg/dL this morning - likely related to full basal dose in evening despite IV steroid discontinuation * Will give significantly reduced basal dose today with prednisone 20 mg PO daily * Maintain aggressive Novolog parameters for now, will loosen if needed 02/06: * Blood sugars elevated yesterday, [phone] mg/dL w/ fasting BSG of 157 mg/dL this morning * Received 250 units of insulin (120 units of basal and 130 units of prandial/correctional bolus) * Steroids decreased to methylprednisolone 30 mg IV BID * Despite elevations - will continue same insulin dosing today with decrease in steroids * If still elevated, then will increase tomorrow 02/05: * DC is a 68 year old female w/ T2DM, well known to pharmacy glycemic service due to multiple inpatient consultations * Admitted on 02/03/24 for acute encephalopathy (multiple possible etiologies at this time) * Pharmacy consulted for glycemic management yesterday (02/04) afternoon * Ordered methylprednisolone 60 mg IV BID, will schedule Lantus with steroids PLAN FOR INPATIENT GLYCEMIC CONTROL: * Hold insulin pump * Basal insulin * Lantus 60 units SC AM * Lantus 35-40 units SC HS (see eMAR for details) * Bolus insulin * NovoLog per scale ACHS or Q6hrs while NPO * Goal Range: Low 110 mg/dL - High 140 mg/dL * Correction Factor: 5 mg/dL/unit * Nutritional / Prandial insulin per carb ratio of 1 unit per 0.8 grams CHO consumed
--- NOTE | 2024-02-21 15:29 | Hospitalist Progress Note ---
Date of Service February 21, 2024 Assessment & Plan (1) Acute on chronic diastolic HF (heart failure): Plan: Present on admission. Now resolved with diuresis. Monitor intake and output. (2) Acute encephalopathy: Plan: Acute toxic encephalopathy present on admission. Now resolved . Thought to be due to fentanyl patch which she is off of now (3) Acute on chronic hypoxic respiratory failure: Plan: Present on admission. Now resolved. (4) Right-sided chest pain: Plan: Noncardiac. No evidence of acute coronary syndrome. Troponins have been normal. (5) Chronic pain: Plan: chronic back pain and pain in right distal femur from an inoperable fracture. Daughter expressed concern for increased sleepiness with high doses of fentanyl. Fentanyl has been discontinued. Diclofenac 75 mg twice a day has been ordered today, February 20. Continue as needed oxycodone and also lidocaine patch (6) Type 2 diabetes mellitus: Plan: pharmacy glycemic consult appreciated. She is on an insulin pump. ADA diet (7) Hypothyroidism: Plan: Stable. Continue Synthroid (8) Chronic obstructive pulmonary disease: Plan: She is now back to her baseline after CHF has resolved. Continue current medical management (9) Obesity hypoventilation syndrome: Plan: known dx with permanent trach in place (10) Morbid obesity with BMI of 60.0-69.9, adult: Plan: BMI 67. Significant weight loss recommended (11) Hypokalemia: Plan: Replaced. Now resolved. Serial labs (12) Chronic kidney disease, stage 3: Plan: Monitor intake and output. Serial labs Plan She refuses to have her middle permanent trach switched over to a plastic trach. This apparently prevents placement in an SNF. She needs to be able to transfer before she can go home. Continue PT and OT while hospitalized Admission and Anticipated Discharge Date Admission Date: February 03, 2024 Subjective Alert and oriented. Family is at the bedside. We discussed addition of Voltaren to help control her right leg pain. This has been ordered. No new problems. Review of Systems 2 Review of Systems: Constitutional-no fever or chills ENT-no blurred vision, no double vision, no epistaxis, no sore throat Respiratory-no cough, no wheezing. Easily short of breath with exertion Cardiac-no palpitations, no chest pain, no syncope GI-no nausea, vomiting, diarrhea, melena, hematochezia -no urinary retention, no urinary incontinence, no dysuria, no hematuria Musculoskeletal-no joint pain, no muscle tenderness Skin-no bruising, no rashes, no pruritus Neuro-no isolated weakness, no paresthesia Psych-no depression, no anxiety Physical Exam 2 Physical Exam: General-alert and oriented x3, no fever, no chills. Morbidly obese HEENT-head atraumatic and normocephalic, pupils equal and reactive to light, extraocular muscles intact Neck-no lymphadenopathy or thyromegaly, trachea midline. Permanent tracheostomy in place Chest-clear to auscultation. No rales, wheezing or rhonchi Cardiac-regular rate and rhythm, normal S1 and S2 Abdomen-normal bowel sounds, nontender, no hepatosplenomegaly Extremities-no cyanosis, clubbing. Chronic bilateral lower extremity edema below the knees Neuro-cranial nerves II through XII intact, motor and sensory function within normal limits, strength symmetrical, no focal deficits Psych-normal affect, normal mood Results & Data Results & Data Vital Signs (Past 12 Hours) Vital Signs Temp Pulse Pulse Pulse Resp BP BP 02/21/24 15:21 90 02/21/24 15:20 66 15 02/21/24 15:11 36.8 C 88 18 121/70 02/21/24 12:02 36.8 C 57 L 22 146/64 H 02/21/24 11:12 115 H 17 02/21/24 08:02 35.5 C L 61 18 114/75 02/21/24 08:00 02/21/24 07:36 85 14 02/21/24 07:17 72 02/21/24 04:11 36.5 C 72 22 124/72 Pulse Ox O2 Del Method FiO2 02/21/24 15:21 02/21/24 15:20 98 Room Air 02/21/24 15:11 91 Room Air 02/21/24 12:02 95 Room Air 02/21/24 11:12 93 Room Air 02/21/24 08:02 94 Room Air 02/21/24 08:00 Room Air 02/21/24 07:36 91 Room Air 02/21/24 07:17 02/21/24 04:11 92 Room Air, Trach Collar Laboratory Results 02/17/24 07:10 02/19/24 06:03 PG Care Time/CCT Total # of Minutes Spent Total Time Spent with Patient: Total time spent is greater than 50% in coordination of care (as documented) at patient's floor/unit and/or counseling patient: Coding Level of Care Code 87654 SUB INP/OBS CARE 350MIN Diagnoses Acute on chronic diastolic HF (heart failure) I50.33 Acute encephalopathy G93.40 Acute on chronic hypoxic respiratory failure J96.21 Right-sided chest pain R07.9 Chronic pain G89.29 Type 2 diabetes mellitus E11.9 Hypothyroidism E03.9 Chronic obstructive pulmonary disease J44.1 COPD type: COPD with acute exacerbation Obesity hypoventilation syndrome E66.2 Morbid obesity with BMI of 60.0-69.9, adult E66.01; Z68.44 Hypokalemia E87.6 Chronic kidney disease, stage 3 N18.30 (8) Chronic obstructive pulmonary disease COPD type: COPD with acute exacerbation Qualified Code(s): J44.1 - Chronic obstructive pulmonary disease with (acute) exacerbation
[2024-02-21] MEDS: DICLOFENAC SODIUM 75 MG TABCR PO SCH (17:41)
--- NOTE | 2024-02-22 12:04 | Hospitalist Progress Note ---
Date of Service February 22, 2024 Assessment & Plan (1) Acute on chronic diastolic HF (heart failure): Plan: Present on admission. Now resolved with diuresis. Monitor intake and output. (2) Acute encephalopathy: Plan: Acute toxic encephalopathy present on admission. Now resolved . Thought to be due to fentanyl patch which she is off of now (3) Acute on chronic hypoxic respiratory failure: Plan: Present on admission. Now resolved. (4) Right-sided chest pain: Plan: Noncardiac. No evidence of acute coronary syndrome. Troponins have been normal. (5) Chronic pain: Plan: chronic back pain and pain in right distal femur from an inoperable fracture. Daughter expressed concern for increased sleepiness with high doses of fentanyl. Fentanyl has been discontinued. Diclofenac 75 mg twice a day was started February 20 and well-tolerated so far. Continue as needed oxycodone and also lidocaine patch (6) Type 2 diabetes mellitus: Plan: pharmacy glycemic consult appreciated. She is on an insulin pump. ADA diet (7) Hypothyroidism: Plan: Stable. Continue Synthroid (8) Chronic obstructive pulmonary disease: Plan: She is now back to her baseline after CHF has resolved. Continue current medical management (9) Obesity hypoventilation syndrome: Plan: known dx with permanent trach in place (10) Morbid obesity with BMI of 60.0-69.9, adult: Plan: BMI 67. Significant weight loss recommended (11) Hypokalemia: Plan: Replaced. Now resolved. Serial labs (12) Chronic kidney disease, stage 3: Plan: Monitor intake and output. Serial labs Plan She refuses to have her metal permanent trach switched over to a plastic trach. This apparently prevents placement in an SNF. She needs to be able to transfer from bed to chair before she can go home. Continue PT and OT while hospitalized Admission and Anticipated Discharge Date Admission Date: February 03, 2024 Subjective Alert and oriented. No new problems. She is tolerating the Voltaren well so far and states that it may be helping her right leg discomfort. Glucose 140 this morning. She is afebrile. Review of Systems 2 Review of Systems: Constitutional-no fever or chills ENT-no blurred vision, no double vision, no epistaxis, no sore throat Respiratory-no cough, no wheezing. Easily short of breath with exertion Cardiac-no palpitations, no chest pain, no syncope GI-no nausea, vomiting, diarrhea, melena, hematochezia -no urinary retention, no urinary incontinence, no dysuria, no hematuria Musculoskeletal-no joint pain, no muscle tenderness Skin-no bruising, no rashes, no pruritus Neuro-no isolated weakness, no paresthesia Psych-no depression, no anxiety Physical Exam 2 Physical Exam: General-alert and oriented x3, no fever, no chills. Morbidly obese HEENT-head atraumatic and normocephalic, pupils equal and reactive to light, extraocular muscles intact Neck-no lymphadenopathy or thyromegaly, trachea midline. Permanent tracheostomy in place Chest-clear to auscultation. No rales, wheezing or rhonchi Cardiac-regular rate and rhythm, normal S1 and S2 Abdomen-normal bowel sounds, nontender, no hepatosplenomegaly Extremities-no cyanosis, clubbing. Chronic bilateral lower extremity edema below the knees Neuro-cranial nerves II through XII intact, motor and sensory function within normal limits, strength symmetrical, no focal deficits Psych-normal affect, normal mood Results & Data Results & Data Vital Signs (Past 12 Hours) Vital Signs Temp Pulse Pulse Resp BP BP Pulse Ox 02/22/24 11:46 73 20 90 02/22/24 11:11 36.7 C 77 20 140/86 94 02/22/24 07:59 36.7 C 70 20 111/65 93 02/22/24 07:21 02/22/24 07:21 68 20 93 02/22/24 05:50 65 02/22/24 03:42 36.6 C 74 18 126/75 91 O2 Del Method 02/22/24 11:46 Room Air 02/22/24 11:11 Room Air 02/22/24 07:59 Room Air 02/22/24 07:21 Trach Collar 02/22/24 07:21 Room Air 02/22/24 05:50 02/22/24 03:42 Trach Collar Laboratory Results 02/17/24 07:10 02/19/24 06:03 PG Care Time/CCT Total # of Minutes Spent Total Time Spent with Patient: Total time spent is greater than 50% in coordination of care (as documented) at patient's floor/unit and/or counseling patient: Coding Level of Care Code 28296 SUB INP/OBS CARE 2/35MIN Diagnoses Acute on chronic diastolic HF (heart failure) I50.33 Acute encephalopathy G93.40 Acute on chronic hypoxic respiratory failure J96.21 Right-sided chest pain R07.9 Chronic pain G89.29 Type 2 diabetes mellitus E11.9 Hypothyroidism E03.9 Chronic obstructive pulmonary disease J44.1 COPD type: COPD with acute exacerbation Obesity hypoventilation syndrome E66.2 Morbid obesity with BMI of 60.0-69.9, adult E66.01; Z68.44 Hypokalemia E87.6 Chronic kidney disease, stage 3 N18.30 (8) Chronic obstructive pulmonary disease COPD type: COPD with acute exacerbation Qualified Code(s): J44.1 - Chronic obstructive pulmonary disease with (acute) exacerbation
[2024-02-22] MEDS: INSULIN ASPART PER UNIT CHARGE SC SCH ×2 (12:44→17:50)
--- NOTE | 2024-02-22 13:10 | Pharmacy Report ---
Pharmacy Glycemic Short Note 2 - Date of Service February 22, 2024 - Glycemic Short BSG Results (Last 24 hours): 02/21/24 02/21/24 02/22/24 16:36 20:22 08:26 POC Glucose 256 H 275 H 140 H 02/22/24 12:01 POC Glucose 210 H OUTPATIENT ANTIDIABETIC REGIMEN: * Novolog insulin pump (setting below from CDE note in 12/2023): * Basal: 106.5 units/day * Carb ratio: 1.8 from 2506-2909, 3.1 from 9410-8107 * SF: 10 from 8758-2420, 17 from 8536-7807 (BSG > 150 mg/dL) * HbA1c: 8.1% (02/06/24) ASSESSMENT: 02/21: * BSGs [phone]/dL the last 24h: Received 100 units of basal and 275 units of bolus insulin yesterday. * Tolerating diet, other stressors stable. * Given very large doses of Novolog yesterday- likely that absorption is erratic. Will continue same basal given fasting BSG within goal. Novolog carb ratio loosened back to 1 gm/unit, however will increase frequency by adding overnight checks in an attempt to reduce the doses for improved absorption. 02/20: * Patient's HS basal dose has been adjusted slightly, as fasting BSG more appropriate to do so today. * Carb ratio tightened slightly this morning to provide additional carb coverage. Will continue to exercise caution in these adjustments, d/t how aggressive her parameters already are. * Pharmacy will continue to monitor and adjust regimen as indicated. 02/19: * Patient averaged 308 units of insulin per day over the weekend. Yesterday received 95 units basal + 216 units bolus. BSGs remain uncontrolled: [phone] mg/dL. * Over the weekend, CF was tightened and HS basal scale was increased. * Original plan was to increase basal HS dose today as patient's regimen is so bolus heavy, but with fasting returning this AM in goal range (132 mg/dL), hesitant to make any basal changes today. * Novolog coverage is extremely tight so even minor changes can result in large increases in insulin doses. Will not make any changes to Novolog today. Would be satisfied with all BSGs < 200 mg/dL. 02/16: * Whit received 267 units of insulin yesterday, 75 units basal + 192 units bolus. BSGs were: [phone] mg/dL. * Fasting BSG was 167 mg/dL this AM. Will increase PM basal scale today. * No changes to Novolog. No stressors. Tolerating diet. 02/15: * Patient well controlled over the past 48 hours. She received 243 units of SQ insulin yesterday (70 units basal + 173 units bolus). * Fasting BSG trending upward: 137 ->142 -> 175 -> 166 mg/dL. Will slightly increase evening Lantus scale. * No other changes required. 02/12: * Blood sugars elevated yesterday * Received 192 units of insulin (50 units of basal and 142 units of bolus) * Last dose of prednisone yesterday, discontinued for this morning * Will empirically decrease basal insulin and carb ratio this morning 02/09: * Whit received 191 units of insulin yesterday (40 were basal, 20% of regimen) * Fasting BSGs typically within goal range or below goal range, she corrects well overnight, will try to avoid HS basal administration. Basal requirements inconsistent based on previous data from other admission. She has required anywhere from 30-120 units of basal insulin with and/or without steroids with no clear pattern. Fasting BSGs typically controlled. * She is on a 5 day course of prednisone 20mg ending 02/11. * BSG trending up throughout the day, will increase basal regimen slightly for a better basal-bolus balance. Carbohydrate ratio also tightened slightly. 02/08: * Significant decrease in insulin needs over the past 24 hours; total of 185 units administered (40 units basal and 145 units bolus) * Patient remains on prednisone 20 mg PO daily. * Persistent post prandial BSG elevation. Will tighten correction factor. 02/07: * Received 285 units of insulin yesterday (120 units of basal and 165 units of prandial/correctional bolus) * Steroids reduced yesterday (only one dose of methylprednisolone 30 mg IV given) and changed to prednisone daily * 60 units of Lantus was still given last evening despite dose instruction to call pharmacy if discontinued * Fasting blood sugar of 84 mg/dL this morning - likely related to full basal dose in evening despite IV steroid discontinuation * Will give significantly reduced basal dose today with prednisone 20 mg PO daily * Maintain aggressive Novolog parameters for now, will loosen if needed 3/19: * Blood sugars elevated yesterday, [phone] mg/dL w/ fasting BSG of 157 mg/dL this morning * Received 250 units of insulin (120 units of basal and 130 units of prandial/correctional bolus) * Steroids decreased to methylprednisolone 30 mg IV BID * Despite elevations - will continue same insulin dosing today with decrease in steroids * If still elevated, then will increase tomorrow 02/05: * DC is a 68 year old female w/ T2DM, well known to pharmacy glycemic service due to multiple inpatient consultations * Admitted on 02/03/24 for acute encephalopathy (multiple possible etiologies at this time) * Pharmacy consulted for glycemic management yesterday (02/04) afternoon * Ordered methylprednisolone 60 mg IV BID, will schedule Lantus with steroids PLAN FOR INPATIENT GLYCEMIC CONTROL: * Hold insulin pump * Basal insulin * Lantus 60 units SC AM * Lantus 35-40 units SC HS (see eMAR for details) * Bolus insulin * NovoLog per scale ACHS + 00,04 * Goal Range: Low 110 mg/dL - High 140 mg/dL * Correction Factor: 5 mg/dL/unit * Nutritional / Prandial insulin per carb ratio of 1 unit per 1 grams CHO consumed
[2024-02-23] MEDS: INSULIN ASPART PER UNIT CHARGE SC SCH (01:02)
--- NOTE | 2024-02-23 14:26 | Hospitalist Progress Note ---
Date of Service February 23, 2024 Assessment & Plan (1) Acute on chronic diastolic HF (heart failure): Plan: Present on admission. Now resolved with diuresis. Monitor intake and output. (2) Acute encephalopathy: Plan: Acute toxic encephalopathy present on admission. Now resolved . Thought to be due to fentanyl patch which she is off of now (3) Acute on chronic hypoxic respiratory failure: Plan: Present on admission. Now resolved. (4) Right-sided chest pain: Plan: Noncardiac. No evidence of acute coronary syndrome. Troponins have been normal. (5) Chronic pain: Plan: chronic back pain and pain in right distal femur from an inoperable fracture. Daughter expressed concern for increased sleepiness with high doses of fentanyl. Fentanyl has been discontinued. Diclofenac 75 mg twice a day was started February 20 and well-tolerated so far and it seems to be helping her pain. Continue as needed oxycodone and also lidocaine patch (6) Type 2 diabetes mellitus: Plan: pharmacy glycemic consult appreciated. She is on an insulin pump. ADA diet (7) Hypothyroidism: Plan: Stable. Continue Synthroid (8) Chronic obstructive pulmonary disease: Plan: She is now back to her baseline after CHF has resolved. Continue current medical management (9) Obesity hypoventilation syndrome: Plan: known dx with permanent trach in place (10) Morbid obesity with BMI of 60.0-69.9, adult: Plan: BMI 67. Significant weight loss recommended (11) Hypokalemia: Plan: Replaced. Now resolved. Serial labs (12) Chronic kidney disease, stage 3: Plan: Monitor intake and output. Serial labs Plan She refuses to have her metal permanent trach switched over to a plastic trach. This apparently prevents placement in an SNF. She needs to be able to transfer from bed to chair before she can go home. Continue PT and OT while hospitalized Admission and Anticipated Discharge Date Admission Date: February 03, 2024 Subjective Stable. No new problems. She continues to tolerate Voltaren well and she states that has helped the right lower extremity pain Review of Systems 2 Review of Systems: Constitutional-no fever or chills ENT-no blurred vision, no double vision, no epistaxis, no sore throat Respiratory-no cough, no wheezing. Easily short of breath with exertion Cardiac-no palpitations, no chest pain, no syncope GI-no nausea, vomiting, diarrhea, melena, hematochezia -no urinary retention, no urinary incontinence, no dysuria, no hematuria Musculoskeletal-no joint pain, no muscle tenderness Skin-no bruising, no rashes, no pruritus Neuro-no isolated weakness, no paresthesia Psych-no depression, no anxiety Physical Exam 2 Physical Exam: General-alert and oriented x3, no fever, no chills. Morbidly obese HEENT-head atraumatic and normocephalic, pupils equal and reactive to light, extraocular muscles intact Neck-no lymphadenopathy or thyromegaly, trachea midline. Permanent tracheostomy in place Chest-clear to auscultation. No rales, wheezing or rhonchi Cardiac-regular rate and rhythm, normal S1 and S2 Abdomen-normal bowel sounds, nontender, no hepatosplenomegaly Extremities-no cyanosis, clubbing. Chronic bilateral lower extremity edema below the knees Neuro-cranial nerves II through XII intact, motor and sensory function within normal limits, strength symmetrical, no focal deficits Psych-normal affect, normal mood Results & Data Results & Data Vital Signs (Past 12 Hours) Vital Signs Temp Pulse Pulse Resp BP BP Pulse Ox 02/23/24 12:02 36.5 C 80 18 122/71 91 02/23/24 11:22 74 20 91 02/23/24 08:00 02/23/24 07:34 76 02/23/24 07:33 70 22 91 02/23/24 07:19 36.5 C 72 20 119/73 90 02/23/24 04:16 02/23/24 04:00 36.6 C 72 18 137/77 91 O2 Del Method 02/23/24 12:02 Room Air 02/23/24 11:22 Room Air 02/23/24 08:00 Trach Collar 02/23/24 07:34 02/23/24 07:33 Room Air 02/23/24 07:19 Room Air 02/23/24 04:16 Trach Collar 02/23/24 04:00 Room Air Laboratory Results 02/17/24 07:10 02/19/24 06:03 PG Care Time/CCT Total # of Minutes Spent Total Time Spent with Patient: Total time spent is greater than 50% in coordination of care (as documented) at patient's floor/unit and/or counseling patient: Coding Level of Care Code 01313 SUB INP/OBS CARE 2/35MIN Diagnoses Acute on chronic diastolic HF (heart failure) I50.33 Acute encephalopathy G93.40 Acute on chronic hypoxic respiratory failure J96.21 Right-sided chest pain R07.9 Chronic pain G89.29 Type 2 diabetes mellitus E11.9 Hypothyroidism E03.9 Chronic obstructive pulmonary disease J44.1 COPD type: COPD with acute exacerbation Obesity hypoventilation syndrome E66.2 Morbid obesity with BMI of 60.0-69.9, adult E66.01; Z68.44 Hypokalemia E87.6 Chronic kidney disease, stage 3 N18.30 (8) Chronic obstructive pulmonary disease COPD type: COPD with acute exacerbation Qualified Code(s): J44.1 - Chronic obstructive pulmonary disease with (acute) exacerbation
--- NOTE | 2024-02-23 15:15 | Pharmacy Report ---
Pharmacy Glycemic Short Note 2 - Date of Service February 23, 2024 - Glycemic Short BSG Results (Last 24 hours): 02/22/24 02/22/24 02/23/24 16:45 20:24 00:25 POC Glucose 223 H 297 H 218 H 02/23/24 02/23/24 02/23/24 05:08 07:57 12:08 POC Glucose 181 H 129 H 197 H OUTPATIENT ANTIDIABETIC REGIMEN: * Novolog insulin pump (setting below from CDE note in 12/2023): * Basal: 106.5 units/day * Carb ratio: 1.8 from 4478-8103, 3.1 from 8883-1610 * SF: 10 from 8007-5706, 17 from 7543-6110 (BSG > 150 mg/dL) * HbA1c: 8.1% (02/06/24) ASSESSMENT: 02/22: * BSGs [phone] mg/dl yesterday. Patient received 100 units of basal and 244 units of bolus insulin yesterday. * Spoke with nurse today. Patient has been snacking with candy. * Fasting BSG = 129 mg/dl today better controlled than yesterday. This is because she received 16 units of Novolog insulin overnight. * Will add another 10 units of basal insulin (total 50 units) at HS to account for the overnight insulin need and remove overnight checks. 02/21: * BSGs [phone]/dL the last 24h: Received 100 units of basal and 275 units of bolus insulin yesterday. * Tolerating diet, other stressors stable. * Given very large doses of Novolog yesterday- likely that absorption is erratic. Will continue same basal given fasting BSG within goal. Novolog carb ratio loosened back to 1 gm/unit, however will increase frequency by adding overnight checks in an attempt to reduce the doses for improved absorption. 02/20: * Patient's HS basal dose has been adjusted slightly, as fasting BSG more appropriate to do so today. * Carb ratio tightened slightly this morning to provide additional carb coverage. Will continue to exercise caution in these adjustments, d/t how aggressive her parameters already are. * Pharmacy will continue to monitor and adjust regimen as indicated. 02/19: * Patient averaged 308 units of insulin per day over the weekend. Yesterday received 95 units basal + 216 units bolus. BSGs remain uncontrolled: [phone] mg/dL. * Over the weekend, CF was tightened and HS basal scale was increased. * Original plan was to increase basal HS dose today as patient's regimen is so bolus heavy, but with fasting returning this AM in goal range (132 mg/dL), hesitant to make any basal changes today. * Novolog coverage is extremely tight so even minor changes can result in large increases in insulin doses. Will not make any changes to Novolog today. Would be satisfied with all BSGs < 200 mg/dL. 02/16: * Whit received 267 units of insulin yesterday, 75 units basal + 192 units bolus. BSGs were: [phone] mg/dL. * Fasting BSG was 167 mg/dL this AM. Will increase PM basal scale today. * No changes to Novolog. No stressors. Tolerating diet. 02/15: * Patient well controlled over the past 48 hours. She received 243 units of SQ insulin yesterday (70 units basal + 173 units bolus). * Fasting BSG trending upward: 137 ->142 -> 175 -> 166 mg/dL. Will slightly increase evening Lantus scale. * No other changes required. 02/12: * Blood sugars elevated yesterday * Received 192 units of insulin (50 units of basal and 142 units of bolus) * Last dose of prednisone yesterday, discontinued for this morning * Will empirically decrease basal insulin and carb ratio this morning 02/09: * Whit received 191 units of insulin yesterday (40 were basal, 20% of regimen) * Fasting BSGs typically within goal range or below goal range, she corrects well overnight, will try to avoid HS basal administration. Basal requirements inconsistent based on previous data from other admission. She has required anywhere from 30-120 units of basal insulin with and/or without steroids with no clear pattern. Fasting BSGs typically controlled. * She is on a 5 day course of prednisone 20mg ending 02/11. * BSG trending up throughout the day, will increase basal regimen slightly for a better basal-bolus balance. Carbohydrate ratio also tightened slightly. 02/08: * Significant decrease in insulin needs over the past 24 hours; total of 185 units administered (40 units basal and 145 units bolus) * Patient remains on prednisone 20 mg PO daily. * Persistent post prandial BSG elevation. Will tighten correction factor. 02/07: * Received 285 units of insulin yesterday (120 units of basal and 165 units of prandial/correctional bolus) * Steroids reduced yesterday (only one dose of methylprednisolone 30 mg IV given) and changed to prednisone daily * 60 units of Lantus was still given last evening despite dose instruction to call pharmacy if discontinued * Fasting blood sugar of 84 mg/dL this morning - likely related to full basal dose in evening despite IV steroid discontinuation * Will give significantly reduced basal dose today with prednisone 20 mg PO daily * Maintain aggressive Novolog parameters for now, will loosen if needed 02/06: * Blood sugars elevated yesterday, [phone] mg/dL w/ fasting BSG of 157 mg/dL this morning * Received 250 units of insulin (120 units of basal and 130 units of prandial/correctional bolus) * Steroids decreased to methylprednisolone 30 mg IV BID * Despite elevations - will continue same insulin dosing today with decrease in steroids * If still elevated, then will increase tomorrow 02/05: * DC is a 68 year old female w/ T2DM, well known to pharmacy glycemic service due to multiple inpatient consultations * Admitted on 02/03/24 for acute encephalopathy (multiple possible etiologies at this time) * Pharmacy consulted for glycemic management yesterday (02/04) afternoon * Ordered methylprednisolone 60 mg IV BID, will schedule Lantus with steroids PLAN FOR INPATIENT GLYCEMIC CONTROL: * Hold insulin pump * Basal insulin * Lantus 60 units SC AM * Lantus 50 units SC HS * Bolus insulin * NovoLog per scale ACHS + 00,04 * Goal Range: Low 110 mg/dL - High 140 mg/dL * Correction Factor: 5 mg/dL/unit * Nutritional / Prandial insulin per carb ratio of 1 unit per 0.8 grams CHO consumed
[2024-02-23] MEDS ORDERED: Nursing to Pharmacy Communication SCH (18:45)
[2024-02-23] MEDS ORDERED: LANTUS PER UNIT CHARGE SC SCH (21:00)
[2024-02-23] MEDS: INSULIN, Rapid-Acting PUMP SCH (21:59)
--- NOTE | 2024-02-24 14:55 | Hospitalist Progress Note ---
Date of Service February 24, 2024 Assessment & Plan (1) Acute on chronic diastolic HF (heart failure): Plan: Present on admission. Now resolved with diuresis. Monitor intake and output. (2) Acute encephalopathy: Plan: Acute toxic encephalopathy present on admission. Now resolved . Thought to be due to fentanyl patch which she is off of now (3) Acute on chronic hypoxic respiratory failure: Plan: Present on admission. Now resolved. (4) Right-sided chest pain: Plan: Noncardiac. No evidence of acute coronary syndrome. Troponins have been normal. (5) Chronic pain: Plan: chronic back pain and pain in right distal femur from an inoperable fracture. Daughter expressed concern for increased sleepiness with high doses of fentanyl. Fentanyl has been discontinued. Diclofenac 75 mg twice a day was started February 20 and well-tolerated so far and it seems to be helping her pain. Continue as needed oxycodone and also lidocaine patch (6) Type 2 diabetes mellitus: Plan: pharmacy glycemic consult appreciated. She is on an insulin pump. ADA diet (7) Hypothyroidism: Plan: Stable. Continue Synthroid (8) Chronic obstructive pulmonary disease: Plan: She is now back to her baseline after CHF has resolved. Continue current medical management (9) Obesity hypoventilation syndrome: Plan: known dx with permanent trach in place (10) Morbid obesity with BMI of 60.0-69.9, adult: Plan: BMI 67. Significant weight loss recommended (11) Hypokalemia: Plan: Replaced. Now resolved. Serial labs (12) Chronic kidney disease, stage 3: Plan: Monitor intake and output. Serial labs Plan She refuses to have her metal permanent trach switched over to a plastic trach. This apparently prevents placement in an SNF. She needs to be able to transfer from bed to chair before she can go home. Continue PT and OT while hospitalized Admission and Anticipated Discharge Date Admission Date: February 03, 2024 Subjective Alert. No distress. She is back on her insulin pump and pleased. Glucose 132 this morning. Review of Systems 2 Review of Systems: Constitutional-no fever or chills ENT-no blurred vision, no double vision, no epistaxis, no sore throat Respiratory-no cough, no wheezing. Easily short of breath with exertion Cardiac-no palpitations, no chest pain, no syncope GI-no nausea, vomiting, diarrhea, melena, hematochezia -no urinary retention, no urinary incontinence, no dysuria, no hematuria Musculoskeletal-no joint pain, no muscle tenderness Skin-no bruising, no rashes, no pruritus Neuro-no isolated weakness, no paresthesia Psych-no depression, no anxiety Physical Exam 2 Physical Exam: General-alert and oriented x3, no fever, no chills. Morbidly obese HEENT-head atraumatic and normocephalic, pupils equal and reactive to light, extraocular muscles intact Neck-no lymphadenopathy or thyromegaly, trachea midline. Permanent tracheostomy in place Chest-clear to auscultation. No rales, wheezing or rhonchi Cardiac-regular rate and rhythm, normal S1 and S2 Abdomen-normal bowel sounds, nontender, no hepatosplenomegaly Extremities-no cyanosis, clubbing. Chronic bilateral lower extremity edema below the knees Neuro-cranial nerves II through XII intact, motor and sensory function within normal limits, strength symmetrical, no focal deficits Psych-normal affect, normal mood Results & Data Results & Data Vital Signs (Past 12 Hours) Vital Signs Temp Pulse Pulse Resp BP Pulse Ox O2 Del Method 02/24/24 11:55 36.8 C 81 18 121/75 90 Room Air 02/24/24 11:25 67 18 90 Room Air 02/24/24 09:52 70 02/24/24 09:44 Trach Collar 02/24/24 08:14 68 17 92 Room Air 02/24/24 08:14 36.6 C 74 18 134/79 98 Other 02/24/24 05:01 36.6 C 74 20 116/73 92 Trach Collar O2 Flow Rate 02/24/24 11:55 02/24/24 11:25 02/24/24 09:52 02/24/24 09:44 02/24/24 08:14 02/24/24 08:14 02/24/24 05:01 6 Laboratory Results 02/17/24 07:10 02/19/24 06:03 PG Care Time/CCT Total # of Minutes Spent Total Time Spent with Patient: Total time spent is greater than 50% in coordination of care (as documented) at patient's floor/unit and/or counseling patient: Coding Level of Care Code 33501 SUB INP/OBS CARE 2/35MIN Diagnoses Acute on chronic diastolic HF (heart failure) I50.33 Acute encephalopathy G93.40 Acute on chronic hypoxic respiratory failure J96.21 Right-sided chest pain R07.9 Chronic pain G89.29 Type 2 diabetes mellitus E11.9 Hypothyroidism E03.9 Chronic obstructive pulmonary disease J44.1 COPD type: COPD with acute exacerbation Obesity hypoventilation syndrome E66.2 Morbid obesity with BMI of 60.0-69.9, adult E66.01; Z68.44 Hypokalemia E87.6 Chronic kidney disease, stage 3 N18.30 (8) Chronic obstructive pulmonary disease COPD type: COPD with acute exacerbation Qualified Code(s): J44.1 - Chronic obstructive pulmonary disease with (acute) exacerbation
--- NOTE | 2024-02-25 15:30 | Hospitalist Progress Note ---
Date of Service February 25, 2024 Assessment & Plan (1) Acute on chronic diastolic HF (heart failure): Plan: Present on admission. Now resolved with diuresis. Monitor intake and output. (2) Acute encephalopathy: Plan: Acute toxic encephalopathy present on admission. Now resolved . Thought to be due to fentanyl patch which she is off of now (3) Acute on chronic hypoxic respiratory failure: Plan: Present on admission. Now resolved. (4) Right-sided chest pain: Plan: Noncardiac. No evidence of acute coronary syndrome. Troponins have been normal. (5) Chronic pain: Plan: chronic back pain and pain in right distal femur from an inoperable fracture. Daughter expressed concern for increased sleepiness with high doses of fentanyl. Fentanyl has been discontinued. Diclofenac 75 mg twice a day was started February 20 and well-tolerated so far and it seems to be helping her pain. Continue as needed oxycodone and also lidocaine patch (6) Type 2 diabetes mellitus: Plan: pharmacy glycemic consult appreciated. She is on an insulin pump. ADA diet (7) Hypothyroidism: Plan: Stable. Continue Synthroid (8) Chronic obstructive pulmonary disease: Plan: She is now back to her baseline after CHF has resolved. Continue current medical management (9) Obesity hypoventilation syndrome: Plan: known dx with permanent trach in place (10) Morbid obesity with BMI of 60.0-69.9, adult: Plan: BMI 67. Significant weight loss recommended (11) Hypokalemia: Plan: Replaced. Now resolved. Serial labs (12) Chronic kidney disease, stage 3: Plan: Monitor intake and output. Serial labs Plan She refuses to have her metal permanent trach switched over to a plastic trach. This apparently prevents placement in an SNF. She needs to be able to transfer from bed to chair before she can go home. Continue PT and OT while hospitalized Admission and Anticipated Discharge Date Admission Date: February 03, 2024 Subjective Alert and oriented. No distress. No complaints. She is satisfied with the results of the Voltaren that was started this admission. Glucose 141 this morning. She remains on room air. Review of Systems 2 Review of Systems: Constitutional-no fever or chills ENT-no blurred vision, no double vision, no epistaxis, no sore throat Respiratory-no cough, no wheezing. Easily short of breath with exertion Cardiac-no palpitations, no chest pain, no syncope GI-no nausea, vomiting, diarrhea, melena, hematochezia -no urinary retention, no urinary incontinence, no dysuria, no hematuria Musculoskeletal-no joint pain, no muscle tenderness Skin-no bruising, no rashes, no pruritus Neuro-no isolated weakness, no paresthesia Psych-no depression, no anxiety Physical Exam 2 Physical Exam: General-alert and oriented x3, no fever, no chills. Morbidly obese HEENT-head atraumatic and normocephalic, pupils equal and reactive to light, extraocular muscles intact Neck-no lymphadenopathy or thyromegaly, trachea midline. Permanent tracheostomy in place Chest-clear to auscultation. No rales, wheezing or rhonchi Cardiac-regular rate and rhythm, normal S1 and S2 Abdomen-normal bowel sounds, nontender, no hepatosplenomegaly Extremities-no cyanosis, clubbing. Chronic bilateral lower extremity edema below the knees Neuro-cranial nerves II through XII intact, motor and sensory function within normal limits, strength symmetrical, no focal deficits Psych-normal affect, normal mood Results & Data Results & Data Vital Signs (Past 12 Hours) Vital Signs Temp Pulse Pulse Resp BP Pulse Ox O2 Del Method 02/25/24 15:26 36.8 C 69 20 117/61 91 Room Air 02/25/24 15:18 82 16 92 Room Air 02/25/24 10:39 79 18 92 Room Air 02/25/24 07:51 36.5 C 70 20 124/63 94 Room Air 02/25/24 07:25 Room Air 02/25/24 07:06 67 16 92 Room Air 02/25/24 06:01 70 02/25/24 04:53 36.6 C 72 20 129/75 91 Room Air Laboratory Results 02/17/24 07:10 02/19/24 06:03 PG Care Time/CCT Total # of Minutes Spent Total Time Spent with Patient: Total time spent is greater than 50% in coordination of care (as documented) at patient's floor/unit and/or counseling patient: Coding Level of Care Code 46635 SUB INP/OBS CARE 2/35MIN Diagnoses Acute on chronic diastolic HF (heart failure) I50.33 Acute encephalopathy G93.40 Acute on chronic hypoxic respiratory failure J96.21 Right-sided chest pain R07.9 Chronic pain G89.29 Type 2 diabetes mellitus E11.9 Hypothyroidism E03.9 Chronic obstructive pulmonary disease J44.1 COPD type: COPD with acute exacerbation Obesity hypoventilation syndrome E66.2 Morbid obesity with BMI of 60.0-69.9, adult E66.01; Z68.44 Hypokalemia E87.6 Chronic kidney disease, stage 3 N18.30 (8) Chronic obstructive pulmonary disease COPD type: COPD with acute exacerbation Qualified Code(s): J44.1 - Chronic obstructive pulmonary disease with (acute) exacerbation
--- NOTE | 2024-02-26 12:20 | Hospitalist Progress Note ---
Date of Service February 26, 2024 Assessment & Plan (1) Acute on chronic diastolic HF (heart failure): Plan: Present on admission. Now resolved with diuresis. Monitor intake and output. (2) Acute encephalopathy: Plan: Acute toxic encephalopathy present on admission. Now resolved . Thought to be due to fentanyl patch which she is off of now (3) Acute on chronic hypoxic respiratory failure: Plan: Present on admission. Now resolved. (4) Right-sided chest pain: Plan: Noncardiac. No evidence of acute coronary syndrome. Troponins have been normal. (5) Chronic pain: Plan: chronic back pain and pain in right distal femur from an inoperable fracture. Daughter expressed concern for increased sleepiness with high doses of fentanyl. Fentanyl has been discontinued. Diclofenac 75 mg twice a day was started February 20 and well-tolerated so far and it seems to be helping her pain. Continue as needed oxycodone and also lidocaine patch (6) Type 2 diabetes mellitus: Plan: Stable. She is on an insulin pump. ADA diet (7) Hypothyroidism: Plan: Stable. Continue Synthroid (8) Chronic obstructive pulmonary disease: Plan: She is now back to her baseline after CHF has resolved. Continue current medical management (9) Obesity hypoventilation syndrome: Plan: known dx with permanent trach in place (10) Morbid obesity with BMI of 60.0-69.9, adult: Plan: BMI 67. Significant weight loss recommended (11) Hypokalemia: Plan: Replaced. Now resolved. Serial labs (12) Chronic kidney disease, stage 3: Plan: Monitor intake and output. Serial labs Plan She refuses to have her metal permanent trach switched over to a plastic trach. This apparently prevents placement in an SNF. She needs to be able to transfer from bed to chair before she can go home. Continue PT and OT while hospitalized Admission and Anticipated Discharge Date Admission Date: February 03, 2024 Subjective Alert and oriented. No new problems. Glucose 158 this morning, February 25 Review of Systems 2 Review of Systems: Constitutional-no fever or chills ENT-no blurred vision, no double vision, no epistaxis, no sore throat Respiratory-no cough, no wheezing. Easily short of breath with exertion Cardiac-no palpitations, no chest pain, no syncope GI-no nausea, vomiting, diarrhea, melena, hematochezia -no urinary retention, no urinary incontinence, no dysuria, no hematuria Musculoskeletal-no joint pain, no muscle tenderness Skin-no bruising, no rashes, no pruritus Neuro-no isolated weakness, no paresthesia Psych-no depression, no anxiety Physical Exam 2 Physical Exam: General-alert and oriented x3, no fever, no chills. Morbidly obese HEENT-head atraumatic and normocephalic, pupils equal and reactive to light, extraocular muscles intact Neck-no lymphadenopathy or thyromegaly, trachea midline. Permanent tracheostomy in place Chest-clear to auscultation. No rales, wheezing or rhonchi Cardiac-regular rate and rhythm, normal S1 and S2 Abdomen-normal bowel sounds, nontender, no hepatosplenomegaly Extremities-no cyanosis, clubbing. Chronic bilateral lower extremity edema below the knees Neuro-cranial nerves II through XII intact, motor and sensory function within normal limits, strength symmetrical, no focal deficits Psych-normal affect, normal mood Results & Data Results & Data Vital Signs (Past 12 Hours) Vital Signs Temp Pulse Pulse Resp BP Pulse Ox O2 Del Method 02/26/24 11:29 36.7 C 79 20 125/65 92 Room Air 02/26/24 10:58 60 18 92 Room Air 02/26/24 09:45 Room Air 02/26/24 08:01 36.5 C 63 20 127/70 94 Room Air 02/26/24 07:23 66 02/26/24 07:01 71 18 93 Room Air 02/26/24 04:26 36.5 C 73 20 123/73 92 Trach Collar O2 Flow Rate 02/26/24 11:29 02/26/24 10:58 02/26/24 09:45 02/26/24 08:01 02/26/24 07:23 02/26/24 07:01 02/26/24 04:26 6 Laboratory Results 02/17/24 07:10 02/19/24 06:03 PG Care Time/CCT Total # of Minutes Spent Total Time Spent with Patient: Total time spent is greater than 50% in coordination of care (as documented) at patient's floor/unit and/or counseling patient: Coding Level of Care Code 66395 SUB INP/OBS CARE 2/35MIN Diagnoses Acute on chronic diastolic HF (heart failure) I50.33 Acute encephalopathy G93.40 Acute on chronic hypoxic respiratory failure J96.21 Right-sided chest pain R07.9 Chronic pain G89.29 Type 2 diabetes mellitus E11.9 Hypothyroidism E03.9 Chronic obstructive pulmonary disease J44.1 COPD type: COPD with acute exacerbation Obesity hypoventilation syndrome E66.2 Morbid obesity with BMI of 60.0-69.9, adult E66.01; Z68.44 Hypokalemia E87.6 Chronic kidney disease, stage 3 N18.30 (8) Chronic obstructive pulmonary disease COPD type: COPD with acute exacerbation Qualified Code(s): J44.1 - Chronic obstructive pulmonary disease with (acute) exacerbation
--- NOTE | 2024-02-27 17:08 | Hospitalist Progress Note ---
Date of Service February 27, 2024 Assessment & Plan (1) Acute on chronic diastolic HF (heart failure): Plan: Present on admission. Now resolved with diuresis. Monitor intake and output. With right sided HF, preserved EF Continue Toprol XL, torsemide, aldactone, KCl, and resume home Jardiance Check BMP in AM (2) Acute encephalopathy: Plan: Acute toxic encephalopathy present on admission. Now resolved . Thought to be due to fentanyl patch which she is off of now (3) Acute on chronic hypoxic respiratory failure: Plan: Present on admission. Now resolved. Has chronic trach (4) Right-sided chest pain: Plan: Noncardiac. No evidence of acute coronary syndrome. Troponins have been normal. No WMAs on ECHO (5) Chronic pain: Plan: chronic back pain and pain in right distal femur from an inoperable fracture. Daughter expressed concern for increased sleepiness with high doses of fentanyl. Fentanyl has been discontinued. Diclofenac 75 mg twice a day was started February 20 and well-tolerated so far and it seems to be helping her pain. Continue as needed oxycodone and also lidocaine patch Watch renal function (6) Type 2 diabetes mellitus: Plan: Stable. She is on an insulin pump. ADA diet (7) Hypothyroidism: Plan: Stable. TSH 1.3 in 12/2023 Continue Synthroid 225 mcg daily (8) Chronic obstructive pulmonary disease: Plan: She is now back to her baseline after CHF has resolved. Continue current medical management with nebs (9) Obesity hypoventilation syndrome: Plan: known dx with permanent trach in place trach care (10) Morbid obesity with BMI of 60.0-69.9, adult: Plan: BMI 67. Significant weight loss recommended (11) Hypokalemia: Plan: continue to replace while on torsemide check BMP, mag in AM (12) Chronic kidney disease, stage 3: Plan: Entry Examiner stable on last check at 1.5 Monitor intake and output. check BMP in AM Plan She refuses to have her metal permanent trach switched over to a plastic trach. This apparently prevents placement in most SNFs and she also refuses to go to SNF She needs to be able to transfer from bed to chair before she can go home. Continue PT and OT while hospitalized Hopeful for dc to home this Tuesday as per pt DVT proph-Lovenox SQ Admission and Anticipated Discharge Date Admission Date: February 03, 2024 Subjective Feeling fine, no concerns. Is waiting for Riccardo from PT to work with her tomorrow- she trusts him. Does not feel comfortable being transferred off tele yet until she sees what her HR does while working with PT. Also does not want to removed Gomez until able to do transfers Tele with sinus rhythm, 1st degree AVB,PVCs, rates 70s Physical Exam Constitutional: WD/WN, vitals as above Respiratory: normal respiratory effort; no cough Auscultation: + diminished lung sounds (throughout due to body habitus); no crackles and no wheezes Cardiovascular: Rate/Rhythm: regular rate and regular rhythm Heart Sounds: no murmur Extremities: + edema (trace edema legs bilat) Musculoskeletal: Extremities: extremities normal to inspection; no cyanosis an d no clubbing Neurologic: moves all extremities and awake; no focal motor deficits Psychiatric: A+Ox3, euthymic affect Lymphatic: no lymphedema Results & Data Results & Data Vital Signs (Past 12 Hours) Vital Signs Temp Pulse Pulse Resp BP Pulse Ox O2 Del Method 02/27/24 15:56 36.7 C 88 20 135/61 91 Room Air 02/27/24 15:50 84 02/27/24 15:34 75 20 93 Room Air 02/27/24 11:44 36.8 C 71 20 103/63 93 Room Air 02/27/24 11:23 73 20 89 L Room Air 02/27/24 11:14 Room Air 02/27/24 08:00 71 02/27/24 07:49 36.7 C 66 20 131/75 95 Room Air 02/27/24 07:15 78 19 95 Room Air FiO2 02/27/24 15:56 02/27/24 15:50 02/27/24 15:34 02/27/24 11:44 02/27/24 11:23 21 02/27/24 11:14 02/27/24 08:00 02/27/24 07:49 02/27/24 07:15 21 PG Care Time/CCT Total # of Minutes Spent Total Time Spent with Patient: Total time spent is greater than 50% in coordination of care (as documented) at patient's floor/unit and/or counseling patient: Coding Level of Care Code 73552 SUB INP/OBS CARE 2/35MIN Diagnoses Acute on chronic diastolic HF (heart failure) I50.33 Acute encephalopathy G93.40 Acute on chronic hypoxic respiratory failure J96.21 Right-sided chest pain R07.9 Chronic pain G89.29 Type 2 diabetes mellitus E11.9 Hypothyroidism E03.9 Chronic obstructive pulmonary disease J44.1 COPD type: COPD with acute exacerbation Obesity hypoventilation syndrome E66.2 Morbid obesity with BMI of 60.0-69.9, adult E66.01; Z68.44 Hypokalemia E87.6 Chronic kidney disease, stage 3 N18.30 (8) Chronic obstructive pulmonary disease COPD type: COPD with acute exacerbation Qualified Code(s): J44.1 - Chronic obstructive pulmonary disease with (acute) exacerbation
[2024-02-28 04:39] LABS: Basophils # (auto) 0.05 K/uL (0.00-0.20); Basophils % (auto) 0.5 %; Eosinophils # (auto) 0.41 K/uL (0.00-0.50); Eosinophils % (auto) 4.4 %; Hematocrit (blood only) 38.2 % (37.0-47.0); Hemoglobin 11.5 g/dl (12.0-16.0); Immature Granulocytes # (auto) 0.11 K/uL (0.01-0.20); Immature Granulocytes % (auto) 1.2 %; Lymphocytes # (auto) 1.63 K/uL (1.20-3.40); Lymphocytes % (auto) 17.4 %; Mean Corpuscular Hemoglobin 26.9 pg (25.0-34.0); Mean Corpuscular Hgb Conc 30.1 g/dL (32.0-36.0); Mean Corpuscular Volume 89.3 fL (80.0-100.0); Mean Platelet Volume 10.4 fL (9.4-12.4); Monocytes # (auto) 0.94 K/uL (0.11-0.59); Neutrophils # (auto) 6.24 K/uL (1.40-6.50); Neutrophils % (auto) 66.5 %; Platelet Count 236 K/uL (130-400); RDW Standard Deviation 54.5 fL (36.4-46.3); Red Blood Count 4.28 M/uL (4.20-5.40); White Blood Count 9.38 K/ul (4.8-10.8)
[2024-02-28 04:46] LABS: BUN Creatinine Ratio 25.5 (10-20); Calcium 9.3 mg/dl (8.6-10.3); Creatinine Clr Calc Pharmacy 54.2 ml/min; Est GFR (African American) 41.7 ml/min; Magnesium 2.1 mg/dl (1.7-2.4); Potassium 4.3 mmol/L (3.5-5.1)
[2024-02-28] MEDS: EMPAGLIFLOZIN 10 MG TAB PO SCH (09:28)
--- NOTE | 2024-02-28 18:44 | Hospitalist Progress Note ---
Date of Service February 28, 2024 Assessment & Plan (1) Acute on chronic diastolic HF (heart failure): Plan: Present on admission. Now resolved with diuresis. Monitor intake and output. With right sided HF, preserved EF Continue Toprol XL, torsemide, aldactone, KCl, and resume home Jardiance renal function stable, utilization review rn 1.4 on 02/27 (2) Acute encephalopathy: Plan: Acute toxic encephalopathy present on admission. Now resolved . Thought to be due to fentanyl patch which she is off of now (3) Acute on chronic hypoxic respiratory failure: Plan: Present on admission. Now resolved. Has chronic trach (4) Right-sided chest pain: Plan: Noncardiac. No evidence of acute coronary syndrome. Troponins have been normal. No WMAs on ECHO (5) Chronic pain: Plan: chronic back pain and pain in right distal femur from an inoperable fracture. Daughter expressed concern for increased sleepiness with high doses of fentanyl. Fentanyl has been discontinued. Diclofenac 75 mg twice a day was started February 20 and well-tolerated so far and it seems to be helping her pain. Continue as needed oxycodone and also lidocaine patch Her inability to stand and transfer is what is preventing her from being discharged to home (6) Type 2 diabetes mellitus: Plan: Stable. Glucose controlled She is on an insulin pump. ADA diet (7) Hypothyroidism: Plan: Stable. TSH 1.3 in 12/2023 Continue Synthroid 225 mcg daily (8) Chronic obstructive pulmonary disease: Plan: She is now back to her baseline after CHF has resolved. Continue current medical management with nebs (9) Obesity hypoventilation syndrome: Plan: known dx with permanent trach in place trach care (10) Morbid obesity with BMI of 60.0-69.9, adult: Plan: BMI 67. Significant weight loss recommended (11) Hypokalemia: Plan: continue to replace while on torsemide levels normal on 02/27 (12) Chronic kidney disease, stage 3: Plan: Volunteer Coordinator stable on last check at 1.45 on 02/[address] and she refuses to have it removed Plan She refuses to have her metal permanent trach switched over to a plastic trach. This apparently prevents placement in most SNFs and she also refuses to go to SNF She needs to be able to transfer from bed to chair before she can go home. Continue PT and OT while hospitalized although now PT says not safe to continue PT without cb lift Pt adamantly against going to any rehab including [facility] DVT proph-Lovenox SQ Admission and Anticipated Discharge Date Admission Date: February 03, 2024 Subjective Pt moving bowels, pain controlled. Worked with PT today and felt she did well, sat in chair, however PT thinks it's unsafe to continue pivot transfers Tele with SR, 1st degree AVB, PVCs, rates 70 Physical Exam Constitutional: WD/WN, vitals as above Respiratory: normal respiratory effort; no cough Auscultation: + diminished lung sounds (throughout due to body habitus); no crackles and no wheezes Cardiovascular: Rate/Rhythm: regular rate and regular rhythm Heart Sounds: no murmur Extremities: + edema (trace edema legs bilat) Musculoskeletal: Extremities: extremities normal to inspection; no cyanosis and no clubbing Neurologic: moves all extremities and awake; no focal motor deficits Psychiatric: A+Ox3, euthymic affect Lymphatic: no lymphedema Results & Data Results & Data Vital Signs (Past 12 Hours) Vital Signs Temp Pulse Pulse Resp BP Pulse Ox O2 Del Method 02/28/24 17:07 84 02/28/24 15:42 36.6 C 81 16 133/76 93 Room Air 02/28/24 15:20 79 18 92 Room Air 02/28/24 12:34 36.7 C 76 16 122/77 90 Room Air, Trach Collar 02/28/24 11:43 Room Air 02/28/24 11:16 78 18 93 Room Air 02/28/24 08:34 78 02/28/24 08:06 36.7 C 81 16 126/70 93 Room Air, Trach Collar 02/28/24 07:23 75 18 91 Room Air Laboratory Results CBC< BMP reviewed PG Care Time/CCT Total # of Minutes Spent Total Time Spent with Patient: Total time spent is greater than 50% in coordination of care (as documented) at patient's floor/unit and/or counseling patient: Coding Level of Care Code 68737 SUB INP/OBS CARE 12/15MIN Diagnoses Acute on chronic diastolic HF (heart failure) I50.33 Acute encephalopathy G93.40 Acute on chronic hypoxic respiratory failure J96.21 Right-sided chest pain R07.9 Chronic pain G89.29 Type 2 diabetes mellitus E11.9 Hypothyroidism E03.9 Chronic obstructive pulmonary disease J44.1 COPD type: COPD with acute exacerbation Obesity hypoventilation syndrome E66.2 Morbid obesity with BMI of 60.0-69.9, adult E66.01; Z68.44 Hypokalemia E87.6 Chronic kidney disease, stage 3 N18.30 (8) Chronic obstructive pulmonary disease COPD type: COPD with acute exacerbation Qualified Code(s): J44.1 - Chronic obstructive pulmonary disease with (acute) exacerbation
--- NOTE | 2024-02-29 17:17 | Hospitalist Progress Note ---
Date of Service February 29, 2024 Assessment & Plan (1) Acute on chronic diastolic HF (heart failure): Plan: Present on admission. Now resolved with diuresis. Monitor intake and output. With right sided HF, preserved EF Continue Toprol XL, torsemide, aldactone, KCl, and Jardiance Consider addition of GLP-1 agonist as outpt for weight loss and CHF, DM renal function stable, flower grower 1.4 on 02/27 (2) Acute encephalopathy: Plan: Acute toxic encephalopathy present on admission. Now resolved . Thought to be due to fentanyl patch which she is off of now (3) Acute on chronic hypoxic respiratory failure: Plan: Present on admission. Now resolved. Has chronic trach (4) Right-sided chest pain: Plan: Noncardiac. No evidence of acute coronary syndrome. Troponins have been normal. No WMAs on ECHO (5) Chronic pain: Plan: chronic back pain and pain in right distal femur from an inoperable fracture. Daughter expressed concern for increased sleepiness with high doses of fentanyl. Fentanyl has been discontinued. Diclofenac 75 mg twice a day was started February 20 and well-tolerated so far and it seems to be helping her pain. Continue as needed oxycodone and also lidocaine patch Her inability to stand and transfer is what is preventing her from being discharged to home but her steward/stewardess feels she can do her transfers with her lift chair and can come home tomorrow (6) Type 2 diabetes mellitus: Plan: Stable. Glucose controlled She is on an insulin pump. ADA diet Continue Jardiance and consider addition of GLP-1 agonist as outpt with PCP (7) Hypothyroidism: Plan: Stable. TSH 1.3 in 12/2023 Continue Synthroid 225 mcg daily (8) Chronic obstructive pulmonary disease: Plan: She is now back to her baseline after CHF has resolved. Continue current medical management with nebs (9) Obesity hypoventilation syndrome: Plan: known dx with permanent trach in place trach care (10) Morbid obesity with BMI of 60.0-69.9, adult: Plan: BMI 67. Significant weight loss recommended Consider Ozempic (11) Hypokalemia: Plan: continue to replace while on torsemide levels normal on 02/27 (12) Chronic kidney disease, stage 3: Plan: Surgical Instrument Technician stable on last check at 1.45 on 02/27 Payne discontinued today Plan She refuses to have her metal permanent trach switched over to a plastic trach. This apparently prevents placement in most SNFs and she also refuses to go to SNF She needs to be able to transfer from bed to chair before she can go home. Continue PT and OT while hospitalized although now PT says not safe to continue PT without cb lift as she is a max assist with multiple people for stand and pivot transfers Pt's steward/stewardess told CM that she feels comfortable doing her transfers on her own at home with a better set up with lift chair and carpet on [place], feels comfortable bringing her home. Pt agrees to this and refuses any rehab or SNF placement Plan to dc to home tomorrow with home health DVT proph-Lovenox SQ Admission and Anticipated Discharge Date Admission Date: February 03, 2024 Anticipated date of discharge: 03/01/24 Subjective Pt denies any problems. She and her steward/stewardess feel comfortable with discharge to home despite difficult transfers here-steward/stewardess reports they have better setup at home and transfers are easier. Tele with SR 1st degree AVB,PVCs, normal rates Physical Exam Constitutional: WD/WN, vitals as above Respiratory: normal respiratory effort; no cough Auscultation: + diminished lung sounds (throughout due to body habitus); no crackles and no wheezes Cardiovascular: Rate/Rhythm: regular rate and regular rhythm Heart Sounds: no murmur Extremities: + edema (trace edema legs bilat) Musculoskeletal: Extremities: extremities normal to inspection; no cyanosis and no clubbing Neurologic: moves all extremities and awake; no focal motor deficits Psychiatric: A+Ox3, euthymic affect Lymphatic: no lymphedema Results & Data Results & Data Vital Signs (Past 12 Hours) Vital Signs Temp Pulse Pulse Resp BP Pulse Ox O2 Del Method 02/29/24 16:21 36.9 C 98 H 16 102/56 L 91 Room Air 02/29/24 14:35 86 17 96 Room Air 02/29/24 11:25 36.7 C 64 16 129/73 95 Room Air, Trach Collar 02/29/24 11:05 78 16 91 Room Air 02/29/24 08:00 Room Air 02/29/24 07:51 36.5 C 72 16 135/76 93 Room Air 02/29/24 07:31 73 15 92 Room Air 02/29/24 07:00 75 FiO2 02/29/24 16:21 02/29/24 14:35 21 02/29/24 11:25 02/29/24 11:05 21 02/29/24 08:00 02/29/24 07:51 02/29/24 07:31 21 02/29/24 07:00 PG Care Time/CCT Total # of Minutes Spent Total Time Spent with Patient: Total time spent is greater than 50% in coordination of care (as documented) at patient's floor/unit and/or counseling patient: Coding Level of Care Code 45347 SUB INP/OBS CARE 12/15MIN Diagnoses Acute on chronic diastolic HF (heart failure) I50.33 Acute encephalopathy G93.40 Acute on chronic hypoxic respiratory failure J96.21 Right-sided chest pain R07.9 Chronic pain G89.29 Type 2 diabetes mellitus E11.9 Hypothyroidism E03.9 Chronic obstructive pulmonary disease J44.1 COPD type: COPD with acute exacerbation Obesity hypoventilation syndrome E66.2 Morbid obesity with BMI of 60.0-69.9, adult E66.01; Z68.44 Hypokalemia E87.6 Chronic kidney disease, stage 3 N18.30 (8) Chronic obstructive pulmonary disease COPD type: COPD with acute exacerbation Qualified Code(s): J44.1 - Chronic obstructive pulmonary disease with (acute) exacerbation
--- NOTE | 2024-03-01 17:16 | Hospitalist Progress Note ---
Date of Service March 01, 2024 Assessment & Plan (1) Acute on chronic diastolic HF (heart failure): Plan: Present on admission. Now resolved with diuresis. Monitor intake and output. With right sided HF, preserved EF Continue Toprol XL, torsemide, aldactone, KCl, and Jardiance Consider addition of GLP-1 agonist as outpt for weight loss and CHF, DM renal function stable, railroad brakeman 1.4 on 02/27 (2) Acute encephalopathy: Plan: Acute toxic encephalopathy present on admission. Now resolved . Thought to be due to fentanyl patch which she is off of now (3) Acute on chronic hypoxic respiratory failure: Plan: Present on admission. Now resolved. Has chronic trach (4) Right-sided chest pain: Plan: Noncardiac. No evidence of acute coronary syndrome. Troponins have been normal. No WMAs on ECHO (5) Chronic pain: Plan: chronic back pain and pain in right distal femur from an inoperable fracture. Daughter expressed concern for increased sleepiness with high doses of fentanyl. Fentanyl has been discontinued. Diclofenac 75 mg twice a day was started February 20 and well-tolerated so far and it seems to be helping her pain. Continue as needed oxycodone and also lidocaine patch Her inability to stand and transfer is what is preventing her from being discharged to home but her design drafter feels she can do her transfers with her lift chair and can come home tomorrow (6) Type 2 diabetes mellitus: Plan: Stable. Glucose controlled She is on an insulin pump. ADA diet Continue Jardiance and consider addition of GLP-1 agonist as outpt with PCP (7) Hypothyroidism: Plan: Stable. TSH 1.3 in 12/2023 Continue Synthroid 225 mcg daily (8) Chronic obstructive pulmonary disease: Plan: She is now back to her baseline after CHF has resolved. Continue current medical management with nebs (9) Obesity hypoventilation syndrome: Plan: known dx with permanent trach in place trach care (10) Morbid obesity with BMI of 60.0-69.9, adult: Plan: BMI 67. Significant weight loss recommended Consider Ozempic (11) Hypokalemia: Plan: continue to replace while on torsemide levels normal on 02/27 (12) Chronic kidney disease, stage 3: Plan: Medicaid Analyst stable on last check at 1.45 on 02/27 Payne discontinued today Plan She refuses to have her metal permanent trach switched over to a plastic trach. This apparently prevents placement in most SNFs and she also refuses to go to SNF She needs to be able to transfer from bed to chair before she can go home. Continue PT and OT while hospitalized although now PT says not safe to continue PT without cb lift as she is a max assist with multiple people for stand and pivot transfers Pt's design drafter told CM that she feels comfortable doing her transfers on her own at home with a better set up with lift chair and carpet on yamileth, feels comfortable bringing her home. Pt agrees to this and refuses any rehab or SNF placement Plan to dc to home tomorrow with home health DVT proph-Lovenox SQ Admission and Anticipated Discharge Date Admission Date: February 03, 2024 Subjective No issues, reports she sat at side of bed for 45 min today Physical Exam Constitutional: WD/WN, vitals as above Respiratory: normal respiratory effort; no cough Auscultation: + diminished lung sounds (throughout due to body habitus); no crackles and no wheezes Cardiovascular: Rate/Rhythm: regular rate and regular rhythm Heart Sounds: no murmur Extremities: + edema (trace edema legs bilat) Musculoskeletal: Extremities: extremities normal to inspection; no cyanosis and no clubbing Neurologic: moves all extremities and awake; no focal motor deficits Psychiatric: A+Ox3, euthymic affect Lymphatic: no lymphedema Results & Data Results & Data Vital Signs (Past 12 Hours) Vital Signs Temp Pulse Resp BP Pulse Ox O2 Del Method 03/01/24 15:54 36.9 C 86 16 102/61 90 Room Air 03/01/24 15:12 92 H 17 92 Room Air 03/01/24 11:49 36.7 C 98 H 16 131/72 97 Room Air 03/01/24 10:52 84 20 91 Room Air 03/01/24 08:25 Room Air 03/01/24 07:44 36.4 C L 73 16 130/72 90 Room Air, Trach Collar 03/01/24 07:34 78 20 94 Room Air PG Care Time/CCT Total # of Minutes Spent Total Time Spent with Patient: Total time spent is greater than 50% in coordination of care (as documented) at patient's floor/unit and/or counseling patient: Coding Level of Care Code 60390 SUB INP/OBS CARE 12/15MIN Diagnoses Acute on chronic diastolic HF (heart failure) I50.33 Acute encephalopathy G93.40 Acute on chronic hypoxic respiratory failure J96.21 Right-sided chest pain R07.9 Chronic pain G89.29 Type 2 diabetes mellitus E11.9 Hypothyroidism E03.9 Chronic obstructive pulmonary disease J44.1 COPD type: COPD with acute exacerbation Obesity hypoventilation syndrome E66.2 Morbid obesity with BMI of 60.0-69.9, adult E66.01; Z68.44 Hypokalemia E87.6 Chronic kidney disease, stage 3 N18.30 (8) Chronic obstructive pulmonary disease COPD type: COPD with acute exacerbation Qualified Code(s): J44.1 - Chronic obstructive pulmonary disease with (acute) exacerbation
--- NOTE | 2024-03-02 10:45 | Discharge Summary ---
Discharge Summary Date of Service March 02, 2024 Notes For Next Care Provider Consider starting Ozempic or Mounjaro Watch renal function closely given addition of NSAIDs for pain Medication Changes From Visit Added torsemide 40mg po daily Discontinued lasix Added Toprol XL 25mg daily and discontinued metoprolol tartrate Stopped fentanyl patch Continue prn oxycodone Added diclofenac 75mg po bid Added Perforomist and Budesonide nebs bid Admission HPI Per Admitting Provider Whit Connelly is a 68yo female with history of tracheostomy dependent chronic hypoxic respiratory failure, RASHAAD, OHS as well as cor pulmonale with diastolic heart failure, COPD and IDDM presenting from home with concern for decreased oxygen saturation and some episodes of confusion. Patient's home health nurse (Waleska) is at bedside and assists with history. She reports that Ms. Connelly has had several episodes of hypoxia over the last few days. She has had some increased confusion as well as some myoclonic jerking. Waleska reports that patient's saturation was 76% this morning (of note, patient only wore her O2 for part of the night). Nurse administered a breathing treatment with improvement of saturations to the 80's. EMS was called and additional breathing treatments were given with improvement in sats to the 90's. Patient and nurse voice concern for Fentanyl patch dose. It was increased to 25mcg approximately one month ago. Since this increase patient reports that she does not like how it makes her feel. Patient reports that she still has some chest heaviness ongoing from her pneumonia. She also feels lightheaded. No report of fever, chills, vomiting or diarrhea. Normal PO intake - normal bowel movements and urination. She does have occasional sputum from her trach - thick and yellow in color with occasional difficulty with coughing and clearing secretions. Patient was recently hospitalized from 01/15/24 - 01/27/24 after presenting with w eakness, cough and congestion. She was found to have bibasilar pneumonia and was treated with Ceftriaxone, Cefepime and Meropenem with improvement. She also had an ESBL E. Coli UTI. She was ultimately discharged home in stable condition. In the ER she is afebrile, HD stable. Adequate oxygenation on 5L TC Lasix 80mg IV given by the ER - patient has urinated quite a bit, 2L UOP after Lasix administration ER Course: Lasix 80mg IV Solumedrol 60mg IV Albuterol 3mL neb KCL 20mEq PO Principal Dx & Hospital Course #1 = Principal Diagnosis (1) Acute on chronic diastolic HF (heart failure): Present on admission. Now resolved with diuresis. Monitor intake and output. With right sided HF, preserved EF Continue Toprol XL (which was new this admission, switched from tartrate), changed to torsemide from home lasix, aldactone, KCl, and Jardiance Consider addition of GLP-1 agonist as outpt for weight loss and CHF, DM-advised to discuss with PCP and Endocrine renal function stable, video systems engineer 1.4 on 02/27 FOllow BMP as outpt in 2 weeks (2) Acute encephalopathy: Acute toxic encephalopathy present on admission. Now resolved . Thought to be due to fentanyl patch which she is off of now (3) Acute on chronic hypoxic respiratory failure: Present on admission. Now resolved. Has chronic trach (4) Right-sided chest pain: Noncardiac. No evidence of acute coronary syndrome. Troponins have been normal. No WMAs on ECHO (5) Chronic pain: chronic back pain and pain in right distal femur from an inoperable fracture. Daughter expressed concern for increased sleepiness with high doses of fentanyl. Fentanyl has been discontinued. Diclofenac 75 mg twice a day was started February 20 and well-tolerated so far and it seems to be helping her pain. Continue as needed oxycodone Her inability to stand and transfer is what is preventing her from being discharged to home as she declines to go to rehab, but her automatic pattern edger feels she can do her transfers with her lift chair and can go home with caretakers (6) Type 2 diabetes mellitus: Stable. Glucose controlled She is on an insulin pump. ADA diet Continue Jardiance and consider addition of GLP-1 agonist as outpt with PCP or Endocrine (7) Hypothyroidism: Stable. TSH 1.3 in 12/2023 Continue Synthroid 225 mcg daily (8) Chronic obstructive pulmonary disease: She is now back to her baseline after CHF has resolved. Continue current medical management with nebs (9) Obesity hypoventilation syndrome: known dx with permanent trach in place trach care (10) Morbid obesity with BMI of 60.0-69.9, adult: BMI 67. Significant weight loss recommended Consider Ozempic or Mounjaro (11) Hypokalemia: continue to replace while on torsemide levels normal on 02/27 (12) Chronic kidney disease, stage 3: Market Risk Manager stable on last check at 1.45 on 02/27 Payne discontinued and voiding on own Plan She refuses to have her metal permanent trach switched over to a plastic trach. This apparently prevents placement in most SNFs and she also refuses to go to SNF Pt's automatic pattern edger told CM that she feels comfortable doing her transfers on her own at home with a better set up with lift chair and carpet on yamileth, feels comfortable bringing her home. Pt agrees to this and refuses any rehab or SNF placement dc to home today with home health DVT proph-Lovenox SQ Discharge Exam Constitutional WD/WN, vitals as above Respiratory normal respiratory effort; no cough Cardiovascular Extremities: + edema (trace edema legs bilat) Musculoskeletal Extremities: extremities normal to inspection; no cyanosis and no clubbing Neurologic moves all extremities and awake; no focal motor deficits Psychiatric A+Ox3, euthymic affect Updated Medication List Medication Instructions Recorded Confirmed Type aspirin 81 mg tablet,delayed 81 mg PO QAM #30 tabs 04/06/23 02/03/24 Rx release (Robert Low Dose Aspirin) atorvastatin 40 mg tablet 40 mg PO QPM #30 tabs 04/06/23 02/03/24 Rx bupropion HCl 100 mg tablet,12 hr 200 mg (2 x 100 mg) PO PM #90 ea 04/06/23 02/03/24 Rx sustained-release folic acid 1 mg tablet 1 mg PO QAM #30 tabs 04/06/23 02/03/24 Rx isosorbide mononitrate 30 mg 30 mg PO QAM #30 tabs 04/06/23 02/03/24 Rx tablet,extended release 24 hr levothyroxine 200 mcg tablet 200 mcg PO DAILYBB #30 tabs 04/06/23 02/03/24 Rx levothyroxine 25 mcg tablet 25 mcg PO DAILYBB #30 tabs 04/06/23 02/03/24 Rx magnesium oxide 400 mg PO QAM #30 tabs 04/06/23 02/03/24 Rx melatonin 3 mg tablet 6 mg (2 x 3 mg) PO HS #60 tabs 04/06/23 02/03/24 Rx multivitamin 1 tab PO QAM #30 tabs 04/06/23 02/03/24 Rx nitroglycerin 0.4 mg sublingual 0.4 mg sublingual DIRECTED PRN 04/06/23 02/03/24 Rx tablet Chest Pain #25 tabs pantoprazole 40 mg tablet,delayed 40 mg PO DAILYBB #30 tabs 04/06/23 02/03/24 Rx release sertraline 50 mg tablet 50 mg PO QAM #30 tabs 04/06/23 02/03/24 Rx spironolactone 25 mg tablet 25 mg PO QAM #30 tabs 04/06/23 02/03/24 Rx topiramate 100 mg tablet 100 mg PO QAM #30 tabs 04/06/23 02/03/24 Rx blood sugar diagnostic (OneTouch #300 ea 07/21/23 02/03/24 Rx Ultra Test strips) blood-glucose meter (OneTouch #1 ea 07/21/23 02/03/24 Rx Ultra2 Meter) pen needle, diabetic 32 gauge x #150 ea 08/26/23 02/03/24 Rx 5/32" (BD Kaitlin 2nd Gen Pen Needle) pen needle, diabetic 32 gauge x #50 ea 08/26/23 02/03/24 Rx 5/32" (BD Kaitlin 2nd Gen Pen Needle) empagliflozin 10 mg tablet 10 mg PO DAILY #30 tabs 10/07/23 02/03/24 Rx (Jardiance) nebulizers #1 ea 11/16/23 02/03/24 Rx ipratropium 0.5 mg-albuterol 3 mg 3 ml inhalation Q4H PRN COUGHING, 11/25/23 02/03/24 Rx (2.5 mg base)/3 mL nebulization WHEEZING, SHORTNESS OF BREATH #180 soln mL diclofenac sodium 1 % topical gel 4 g EXT QID PRN Pain 01/15/24 02/03/24 History (Voltaren Arthritis Pain) insulin aspart U-100 100 unit/mL 0 unit continuous subcutaneous 01/15/24 02/03/24 History subcutaneous solution (Novolog infusion DAILY U-100 Insulin aspart) naloxone 4 mg/actuation nasal 4 mg intranasal DIRECTED PRN 01/15/24 02/03/24 History spray (Narcan) OVERDOSE bupropion HCl 100 mg tablet,12 hr 100 mg PO QAM 02/03/24 02/03/24 History sustained-release potassium chloride 20 mEq 20 meq PO BID 02/03/24 02/03/24 History tablet,extended release budesonide 0.5 mg/2 mL suspension 0.5 mg (2 mL) NEB BIDR #120 mL 03/02/24 Rx for nebulization diclofenac sodium 75 mg 75 mg PO BID #60 tabs 03/02/24 Rx tablet,delayed release famotidine 20 mg tablet 20 mg PO DAILY PRN heartburn #30 03/02/24 Rx tabs formoterol fumarate 20 mcg/2 mL 20 mcg (2 mL) inhalation BIDR #120 03/02/24 Rx solution for nebulization mL (Perforomist) ipratropium 20 mcg-albuterol 100 1 puff inhalation QID PRN 03/02/24 02/03/24 Rx mcg/actuation mist for inhalation shortness of breath #4 grams (Combivent Respimat) metoprolol succinate 25 mg 25 mg PO QAM #30 tabs 03/02/24 Rx tablet,extended release 24 hr oxycodone 5 mg tablet 5 mg PO BID PRN moderate-severe 03/02/24 Rx pain #60 tabs torsemide 20 mg tablet 40 mg (2 x 20 mg) PO QAM #60 tabs 03/02/24 Rx Hospital Stay Data Consultations 02/03/24 16:30 ED Decision to Admit Stat 02/11/24 08:38 Consult Cardiology Routine Pending Results Patient Have Any Pending Studies at Discharge: No Discharge Instructions Given to Patient (Per Discharging Provider) You were admitted with fluid overload from heart failure and started on torsemide rather than lasix as your water pill.You were also having confusion from the Fentanyl patch and this was stopped. You have gained quite a bit of weight over the last 2 years and you should talk to your PCP or Dolly Operator about starting Ozempic or Mounjaro as a medication for weight loss and for diabetes management. Call your Primary Care doctor if any of the following symptoms or problems start or get worse: * Shortness of breath or difficulty breathing * Wake up at night short of breath * Chest pain * Cough * Swelling of your hands, feet, or legs * More fatigued or tired with your normal activity * Palpitations - sudden fast heart beats WEIGHT * Weigh yourself every morning after using the bathroom. * Use the same scale. * Wear the same amount of clothing. * Write your weight down on a chart. * Call your Primary Care doctor if you gain more than 2-3 pounds in 1-2 days. MEDICATIONS * Use this discharge instruction sheet for medication instructions. * Take your medications at the time your doctor ordered. * Do not skip a dose of your medicines. * If you miss a dose of medicine, take it as soon as possible, but DO NOT DOUBLE A DOSE. * Read your medicine information when you get home. * Know all of the side effects of your medicine. If in doubt, ask your pharmacist * Call your Primary Care doctor's office if you have any side effects. * Be sure all of your doctors know what medicine and herbs you take (including cold, flu, and herbal medicine). Take the following with you to your follow-up doctor appointments: * Weight Chart * Medication List * List of questions Do not drink excessive alcohol, beer or wine. Total Time Total Time Spent Total Time Spent (In Minutes): 40 min Coding Level of Care Code 39437 INP/OBS DISCH >30 MIN Diagnoses Acute on chronic diastolic HF (heart failure) I50.33 Acute encephalopathy G93.40 Acute on chronic hypoxic respiratory failure J96.21 Right-sided chest pain R07.9 Chronic pain G89.29 Type 2 diabetes mellitus E11.9 Hypothyroidism E03.9 Chronic obstructive pulmonary disease J44.1 COPD type: COPD with acute exacerbation Obesity hypoventilation syndrome E66.2 Morbid obesity with BMI of 60.0-69.9, adult E66.01; Z68.44 Hypokalemia E87.6 Chronic kidney disease, stage 3 N18.30
== END 2024-03-02 11:06 | disposition home health service (06) | DRG 291 ==
LOC: ED 14:24 → EDINP 19:52 → SUATTDRO 19:52 → 2W 22:17

== ENCOUNTER 2024-06-13 01:54 | Inpatient (IN) ==
[2024-06-13] MEDS: ALBUT/IPRATROP 3MG/0.5MG NEB 3 ML VIAL NEB STA (02:33)
[2024-06-13 02:35] LABS: Basophils # (auto) 0.05 K/uL (0.00-0.20); Basophils % (auto) 0.5 %; Hematocrit (blood only) 40.8 % (37.0-47.0); Hemoglobin 11.9 g/dl (12.0-16.0); Immature Granulocytes # (auto) 0.15 K/uL (0.01-0.20); Immature Granulocytes % (auto) 1.5 %; Lymphocytes # (auto) 1.85 K/uL (1.20-3.40); Lymphocytes % (auto) 18.4 %; Mean Corpuscular Hemoglobin 27.8 pg (25.0-34.0); Mean Corpuscular Hgb Conc 29.2 g/dL (32.0-36.0); Mean Corpuscular Volume 95.3 fL (80.0-100.0); Mean Platelet Volume 9.7 fL (9.4-12.4); Monocytes # (auto) 1.26 K/uL (0.11-0.59); Monocytes % (auto) 12.6 %; Neutrophils # (auto) 6.32 K/uL (1.40-6.50); Platelet Count 258 K/uL (130-400); RDW Coefficient of Variation 15.9 % (11.5-14.5); RDW Standard Deviation 55.9 fL (36.4-46.3); Red Blood Count 4.28 M/uL (4.20-5.40); White Blood Count 10.03 K/ul (4.8-10.8)
--- NOTE | 2024-06-13 02:46 | Emergency Department Note ---
Impression & Plan SOB (shortness of breath), Wheezing, Parainfluenza infection, Tracheostomy in place, Hypoglycemia ED Provider Note NAME: ANN JACKSON AGE: 68 SEX: F : 1955 ARRIVES VIA: Ambulance INFORMANT: [Patient][nursing][ems] ED PROVIDER(S): [Jasper Verma MD] CHIEF COMPLAINT: Respiratory problems HISTORY OF PRESENT ILLNESS: The patient is a 68-year-old female who has a trach. She has chronic lung disease. She has noticed 24 hours of increasing shortness of breath, no fever. No real increased significant cough. She has been short of breath really all day despite her nebulizer machine at home. On the way to the hospital, she was given 2 DuoNebs and 4 baby aspirin. The patient denies any sick contacts. She did have some chest pain earlier, none presently. PMHx/PSHx/Social Hx: See Below PHYSICAL EXAM: GENERAL: Patient is in no acute distress. HEENT: No acute trauma, normocephalic atraumatic, mucous membranes moist, no nasal congestion. NECK: No stridor, no adenopathy, no meningismus, trachea is midline. Tracheostomy present. LUNGS: Diminished breath sounds with wheezing bilaterally, no obvious respiratory distress. HEART: Without murmurs gallops or rubs, regular rate and rhythm. Heart tones are distant. ABDOMEN: Soft, nontender, no peritonitis. Quite obese. EXTREMITIES: No cyanosis, full range of motion of all the joints without pain or difficulty. Mild to moderate bilateral pedal edema. NEUROLOGIC: Awake and alert, oriented x 3, no acute motor or sensory deficits, no focal weakness. SKIN: No jaundice, no diaphoresis. DIFFERENTIAL DIAGNOSIS: Bronchitis or pneumonia, CHF, viral illness, exacerbation of COPD, anemia, MD, among others. EMERGENCY DEPARTMENT PROCEDURES: MEDICAL DECISION MAKING: There is no leukocytosis. There is a very mild anemia. There is a normal platelet count. No coagulopathy. Creatinine is elevated but this is consistent with past values, she has some chronic renal failure. Glucose was low at 50. Patient did receive 25 cc of IV D50. Repeat value sometime later was 76, improved. The patient's insulin pump was put on hold. Lactic acid level was not elevated making severe sepsis less likely. No concerning liver enzyme elevation. BNP was not elevated making CHF and fluid overload unlikely. ECG showed artifact but a sinus rhythm. No obvious ST elevation. Cardiac enzyme testing x 1 was not consistent with acute cardiac injury. Respiratory bio fire was positive for parainfluenza 3. Chest x-ray showed some chronic change and chronic basilar congestion. No focal pneumonia, no pneumothorax. On exam, the patient was wheezing. She was able to answer questions appropriately. The patient received IV Solu-Medrol, a DuoNeb. She had received 2 DuoNebs prior to arrival. Respiratory was able to clean and suction her tracheostomy. Patient was still wheezing although, she was able to maintain an adequate O2 saturation on her typical amount of at home oxygen supplementation. When she became a bit more somnolent during the ED stay, an ABG was ordered. The patient had a mild respiratory acidosis. The patient is in need of a hospital stay. She is wheezing, she is short of breath. She has severe lung disease with a tracheostomy. She is not safe to be at home. I suspect the parainfluenza virus has flared her COPD, this has led to her dyspnea and presentation today. I did speak with the patient and case management, the on-call hospitalist was consulted. Prior/Outside records/notes reviewed: Today's EMS notes describing her presentation and transport to this hospital. ECG per my interpretation: Indication was shortness of breath. The ECG shows a sinus rhythm with what appears to be a first-degree AV block. There is a right bundle branch block. There is baseline artifact. A PVC is seen. There is no acute ST elevation. QTc is 559. Continuous Cardiac Monitoring per my interpretation: An order was placed for continuous cardiac monitoring. The monitor shows a rate of 71 with sinus rhythm with a first-degree block. Imaging/x-ray results per my interpretation: Chest x-ray shows cardiomegaly and some chronic basilar congestion. No obvious focal pneumonia or pneumothorax. Chronic Medical/Social conditions affecting care: Obesity, history of COPD, history of tracheostomy. Care/Management discussed with: Case management, the on-call hospitalist. Level of care consideration(s): After review of the information above and other included data: --I believe the patient requires escalation of care to admission Critical Care Note: I have personally spent 39 minutes of critical care time in the direct management of this patient. This includes bedside care, interpretation of diagnostic studies, and testing, discussion with consultants, patient, and family members, and other required patient management activities. This 39 minutes is in excess of all separately billable procedures. DISPOSITION: Admission Past Med/Surg History Problem List Hypoglycemia (Acute) Tracheostomy in place (Acute) Parainfluenza infection (Acute) Wheezing (Acute) SOB (shortness of breath) (Acute) Morbid obesity with BMI of 60.0-69.9, adult Insulin-requiring or dependent type II diabetes mellitus Hypothyroidism HTN (hypertension) Chronic kidney disease, stage 3b Physical deconditioning Chronic kidney disease, stage 3 Dyslipidemia, goal LDL below 70 HTN, goal below 130/80 Chronic pain Iron deficiency Chronic hypoxic respiratory failure Diabetic nephropathy Seborrhea Back pain Open wound Lesion of left [place] kidney Ambulatory dysfunction Anemia Left knee pain Pain and swelling of right lower extremity (Acute) Pain and swelling of left lower extremity (Acute) Common migraine without aura (Acute) Hypersomnia with sleep apnea (Acute) Memory loss (Acute) Myoclonus (Acute) Tracheobronchitis (Acute) Palpitations Dyslipidemia (Chronic) MRSA (methicillin resistant staph aureus) culture positive (Chronic) "sputum 11/2015" History of hysterectomy (Chronic) Right ventricular dysfunction (Chronic) Medical History C. difficile diarrhea Acute gout Wound, breast Type 2 diabetes mellitus Right bundle branch block Presence of tracheostomy Morbid obesity Weakness Cor pulmonale CHF (congestive heart failure) Chronic diastolic heart failure cor pulmonale Chronic obstructive pulmonary disease Obesity hypoventilation syndrome Generalized weakness Fracture of distal end of right femur Hypothyroidism (acquired) Ureterolithiasis Vitamin D deficiency Adjustment disorder with depressed mood Tinea unguium GERD (gastroesophageal reflux disease) Anxiety Coronary artery disease RASHAAD (obstructive sleep apnea) Sepsis Surgical History History of tonsillectomy and adenoidectomy History of cholecystectomy History of appendectomy Family History Mother Coronary heart disease COPD (chronic obstructive pulmonary disease) Father Suicide Hung himself. Pt found him. Unknown Lung cancer Social History Smoking Status: Never smoker Tobacco Type: Cigarettes Second Hand Exposure: No; Do You Dip or Chew Tobacco: No; Hx Alcohol Use: No Hx Substance Use: No Preferred Language: Citizen Of [place] Communication Ability: Effective Visual Impairment: Limited Hearing Ability: Normal Linker Up Required: No Beliefs That Will Affect Care: None marital status: Current Living Situation: Family Current Living Situation Comment: with daughter current occupational status: disabled How many Children do You have: 1 Other Information That Helps Us Care for You: No Feels Safe at Home: Yes Diet: regular Diet Comment: Drinks 1 Boost drink supplement in the morning caffeine: Yes (1 coffee daily) Physical Activity Frequency: Does not Exercise Seatbelt Use: always Do you think of yourself as: straight/heterosexual Gender Identity: Female Assistive Devices: Bedside Commode, BiPap, Hospital Bed, Oxygen - Continuous and Wheelchair Allergies Allergies Allergy/AdvReac Type Severity Reaction Status Date / Time Penicillins Allergy Intermediate Hives Verified 06/05/24 10:02 amitriptyline Allergy Unknown CAN'T Verified 06/05/24 10:02 REMEMBER doxycycline Allergy Unknown CAN'T Verified 06/05/24 10:02 REMEMBER guaifenesin Allergy Unknown CAN'T Verified 06/05/24 10:02 REMEMBER metformin Allergy Unknown CAN'T Verified 06/05/24 10:02 REMEMBER phenylephrine Allergy Unknown CAN'T Verified 06/05/24 10:02 REMEMBER pseudoephedrine Allergy Unknown CAN'T Verified 06/05/24 10:02 REMEMBER tetracycline Allergy Unknown CAN'T Verified 06/05/24 10:02 REMEMBER venlafaxine [From Effexor] Allergy Unknown CAN'T Verified 06/05/24 10:02 REMEMBER gabapentin AdvReac Intermediate BECOMES Verified 06/05/24 10:02 AGGRESSIVE Home Meds Home Medications Medication Instructions Recorded Confirmed diclofenac sodium 1 % topical gel 4 g EXT QID PRN Pain 01/15/24 06/05/24 (Voltaren Arthritis Pain) naloxone 4 mg/actuation nasal 4 mg intranasal DIRECTED PRN 01/15/24 06/05/24 spray (Narcan) OVERDOSE bupropion HCl 100 mg tablet,12 hr 100 mg PO QAM 02/03/24 06/05/24 sustained-release potassium chloride 20 mEq 20 meq PO BID 02/03/24 06/05/24 tablet,extended release Previous Rx's Medication Instructions Recorded aspirin 81 mg tablet,delayed 81 mg PO QAM #30 tabs 04/06/23 release (Robert Low Dose Aspirin) atorvastatin 40 mg tablet 40 mg PO QPM #30 tabs 04/06/23 bupropion HCl 100 mg tablet,12 hr 200 mg (2 x 100 mg) PO PM #90 ea 04/06/23 sustained-release folic acid 1 mg tablet 1 mg PO QAM #30 tabs 04/06/23 isosorbide mononitrate 30 mg 30 mg PO QAM #30 tabs 04/06/23 tablet,extended release 24 hr levothyroxine 200 mcg tablet 200 mcg PO DAILYBB #30 tabs 04/06/23 levothyroxine 25 mcg tablet 25 mcg PO DAILYBB #30 tabs 04/06/23 magnesium oxide 400 mg PO QAM #30 tabs 04/06/23 melatonin 3 mg tablet 6 mg (2 x 3 mg) PO HS #60 tabs 04/06/23 multivitamin 1 tab PO QAM #30 tabs 04/06/23 nitroglycerin 0.4 mg sublingual 0.4 mg sublingual DIRECTED PRN 04/06/23 tablet Chest Pain #25 tabs pantoprazole 40 mg tablet,delayed 40 mg PO DAILYBB #30 tabs 04/06/23 release sertraline 50 mg tablet 50 mg PO QAM #30 tabs 04/06/23 spironolactone 25 mg tablet 25 mg PO QAM #30 tabs 04/06/23 topiramate 100 mg tablet 100 mg PO QAM #30 tabs 04/06/23 blood-glucose meter (OneTouch #1 ea 07/21/23 Ultra2 Meter) pen needle, diabetic 32 gauge x #150 ea 08/26/23" (BD Kaitlin 2nd Gen Pen Needle) pen needle, diabetic 32 gauge x #50 ea 08/26/23" (BD Kaitlin 2nd Gen Pen Needle) empagliflozin 10 mg tablet 10 mg PO DAILY #30 tabs 10/07/23 (Jardiance) nebulizers #1 ea 11/16/23 ipratropium 0.5 mg-albuterol 3 mg 3 ml inhalation Q4H PRN COUGHING, 11/25/23 (2.5 mg base)/3 mL nebulization WHEEZING, SHORTNESS OF BREATH #180 soln mL budesonide 0.5 mg/2 mL suspension 0.5 mg (2 mL) NEB BIDR #120 mL 03/02/24 for nebulization diclofenac sodium 75 mg 75 mg PO BID #60 tabs 03/02/24 tablet,delayed release famotidine 20 mg tablet 20 mg PO DAILY PRN heartburn #30 03/02/24 tabs formoterol fumarate 20 mcg/2 mL 20 mcg (2 mL) inhalation BIDR #120 03/02/24 solution for nebulization mL (Perforomist) ipratropium 20 mcg-albuterol 100 1 puff inhalation QID PRN 03/02/24 mcg/actuation mist for inhalation shortness of breath #4 grams (Combivent Respimat) metoprolol succinate 25 mg 25 mg PO QAM #30 tabs 03/02/24 tablet,extended release 24 hr oxycodone 5 mg tablet 5 mg PO BID PRN moderate-severe 03/02/24 pain #60 tabs torsemide 20 mg tablet 40 mg (2 x 20 mg) PO QAM #60 tabs 03/02/24 insulin aspart U-100 100 unit/mL See Rx Instructions subcut DAILY 03/23/24 subcutaneous solution (Novolog #100 mL U-100 Insulin aspart) blood sugar diagnostic (OneTouch #400 ea 05/31/24 Ultra Test strips) Results & Data (ED) Vital Signs Vital Signs - 24 hr 06/13/24 02:04 06/13/24 02:04 06/13/24 02:04 Temperature 36.9 C Temperature Source Oral Pulse Rate 72 71 Pulse Rate from SpO2 Sensor Respiratory Rate 32 H Respiratory Effort / Characteristics Labored Labored Respiratory Depth Deep Respiratory Pattern Regular Tachypnea Blood Pressure 151/77 H Blood Pressure Mean 101 Pulse Oximetry 89 L Oxygen Delivery Method Room Air Oxygen Flow Rate Fraction of Inspired Oxygen Sepsis Recent Fever Within 48 Hours No Sepsis New/Unexplained Change in Mental Status N/A Sepsis Action Taken by Nursing No Action Required 06/13/24 02:08 06/13/24 02:34 06/13/24 03:03 Temperature Temperature Source Pulse Rate 66 Pulse Rate from SpO2 Sensor 66 Respiratory Rate 16 19 Respiratory Effort / Characteristics Spontaneous Accessory Muscle Use Respiratory Depth Respiratory Pattern Blood Pressure 128/82 Blood Pressure Mean 97 Pulse Oximetry 96 97 95 Oxygen Delivery Method Trach Collar Trach Collar Oxygen Flow Rate 7 6 Fraction of Inspired Oxygen 28 Sepsis Recent Fever Within 48 Hours Sepsis New/Unexplained Change in Mental Status Sepsis Action Taken by Nursing 06/13/24 04:03 06/13/24 04:30 Temperature Temperature Source Pulse Rate 60 66 Pulse Rate from SpO2 Sensor 60 66 Respiratory Rate 24 19 Respiratory Effort / Characteristics Respiratory Depth Respiratory Pattern Blood Pressure 126/70 146/96 H Blood Pressure Mean 88 112 Pulse Oximetry 94 92 Oxygen Delivery Method Oxygen Flow Rate Fraction of Inspired Oxygen Sepsis Recent Fever Within 48 Hours Sepsis New/Unexplained Change in Mental Status Sepsis Action Taken by Alf Medications Current Medication List: was personally reviewed by me Laboratory Data Attestation: I reviewed the patient's lab results. 06/13/24 02:14 06/13/24 02:14 Lab Results 06/13/24 06/13/24 06/13/24 Range/Units 02:14 02:35 03:14 WBC 10.03 (4.8-10.8) K/ul RBC 4.28 (4.20-5.40) M/uL Hgb 11.9 L (12.0-16.0) g/dl POC Hgb (12.0-16.0) g/dl Hct 40.8 (37.0-47.0) % POC Hct (37-47) % MCV 95.3 (80.0-100.0) fL MCH 27.8 (25.0-34.0) pg MCHC 29.2 L (32.0-36.0) g/dL RDW Std Deviation 55.9 H (36.4-46.3) fL RDW Coeff of Amee 15.9 H (11.5-14.5) % Plt Count 258 (130-400) K/uL MPV 9.7 (9.4-12.4) fL Immature Gran % (Auto) 1.5 % Neut % (Auto) 63.0 % Lymph % (Auto) 18.4 % [place] % (Auto) 12.6 % Eos % (Auto) 4.0 % Baso % (Auto) 0.5 % Neut # (Auto) 6.32 (1.40-6.50) K/uL Lymph # (Auto) 1.85 (1.20-3.40) K/uL Chester # (Auto) 1.26 H (0.11-0.59) K/uL Eos # (Auto) 0.40 (0.00-0.50) K/uL Baso # (Auto) 0.05 (0.00-0.20) K/uL Immature Gran # (Auto) 0.15 (0.01-0.20) K/uL PT 11.1 (9.0-12.0) Seconds INR 1.0 (0.9-1.1) APTT 26 (21-31) Seconds PTT Ratio 1.0 POC pH (7.35-7.45) POC pCO2 (35-46) mmHg POC pO2 (80-95) mmHg POC HCO3 (19-24) davis/L POC Total CO2 (24-31) mmol/L POC Base Excess (-9-1.8) davis/L POC ABG O2 Sat (90-95) % POC Sodium (135-144) mmol/L Sodium 137 (136-145) mmol/L POC Potassium (3.3-5.0) mmol/L Potassium 4.4 (3.5-5.1) mmol/L Chloride 106 (98-107) mmol/L Carbon Dioxide 26 (21-32) mmol/L Anion Gap 5 (3-11) BUN 39 H (6-23) mg/dl Creatinine 1.74 H (0.6-1.2) mg/dl Est Cr Clr Drug Dosing 50.3 ml/min Est GFR ( Amer) 34.6 ml/min Est GFR (Non-Af Amer) 29.8 ml/min BUN/Creatinine Ratio 22.4 H (10-20) Glucose 50 L* (70-99(Fasting)) mg/dl POC Glucose 47 L* (70-99) mg/dl Lactate 0.7 (0.4-2.0) mmol/L Calcium 9.1 (8.6-10.3) mg/dl Magnesium 2.2 (1.7-2.4) mg/dl Total Bilirubin 0.3 (0.2-1.0) mg/dl AST 29 (13-39) U/L ALT 37 (7-52) U/L Alkaline Phosphatase 121 H (34-104) U/L Troponin I High Sens 6.4 (0-14) pg/ml B-Natriuretic Peptide 42 (0-100) pg/ml Total Protein 7.7 (6.0-8.3) gm/dl Albumin 3.5 (3.4-5.0) gm/dl Globulin 4.2 H (2.5-4.0) gm/dl Albumin/Globulin Ratio 0.8 L (0.9-2) Adenovirus (PCR) Not Detected (NotDetected) B. pertussis DNA (PCR) Not Detected (NotDetected) B.parapertussis DNA PCR Not Detected (NotDetected) C. pneumoniae DNA (PCR) Not Detected (NotDetected) Coronavirus OC43 (PCR) Not Detected (NotDetected) Coronavirus HKU1 (PCR) Not Detected (NotDetected) Coronavirus 229E (PCR) Not Detected (NotDetected) SARS-CoV-2 (PCR) Not Detected (NotDetected) Coronavirus NL63 (PCR) Not Detected (NotDetected) Human Metapneumovir PCR Not Detected (NotDetected) Influenza Type A (PCR) Not Detected (NotDetected) Influenza Type B (PCR) Not Detected (NotDetected) M. pneumoniae (PCR) Not Detected (NotDetected) Parainfluenza 1 (PCR) Not Detected (NotDetected) Parainfluenza 2 (PCR) Not Detected (NotDetected) Parainfluenza 3 (PCR) DETECTED A (NotDetected) Parainfluenza 4 (PCR) Not Detected (NotDetected) RSV (PCR) Not Detected (NotDetected) Entero/Rhino (PCR) Not Detected (NotDetected) 06/13/24 06/13/24 Range/Units 03:55 04:26 WBC (4.8-10.8) K/ul RBC (4.20-5.40) M/uL Hgb (12.0-16.0) g/dl POC Hgb 12.2 (12.0-16.0) g/dl Hct (37.0-47.0) % POC Hct 36 L (37-47) % MCV (80.0-100.0) fL MCH (25.0-34.0) pg MCHC (32.0-36.0) g/dL RDW Std Deviation (36.4-46.3) fL RDW Coeff of Amee (11.5-14.5) % Plt Count (130-400) K/uL MPV (9.4-12.4) fL Immature Gran % (Auto) % Neut % (Auto) % Lymph % (Auto) % [place] % (Auto) % Eos % (Auto) % Baso % (Auto) % Neut # (Auto) (1.40-6.50) K/uL Lymph # (Auto) (1.20-3.40) K/uL [place] # (Auto) (0.11-0.59) K/uL Eos # (Auto) (0.00-0.50) K/uL Baso # (Auto) (0.00-0.20) K/uL Immature Gran # (Auto) (0.01-0.20) K/uL PT (9.0-12.0) Seconds INR (0.9-1.1) APTT (21-31) Seconds PTT Ratio POC pH 7.23 L (7.35-7.45) POC pCO2 57 H (35-46) mmHg POC pO2 89 (80-95) mmHg POC HCO3 24 (19-24) davis/L POC Total CO2 26 (24-31) mmol/L POC Base Excess -3.0 (-9-1.8) davis/L POC ABG O2 Sat 95.0 (90-95) % POC Sodium 139 (135-144) mmol/L Sodium (136-145) mmol/L POC Potassium 4.5 (3.3-5.0) mmol/L Potassium (3.5-5.1) mmol/L Chloride (98-107) mmol/L Carbon Dioxide (21-32) mmol/L Anion Gap (3-11) BUN (6-23) mg/dl Creatinine (0.6-1.2) mg/dl Est Cr Clr Drug Dosing ml/min Est GFR ( Amer) ml/min Est GFR (Non-Af Amer) ml/min BUN/Creatinine Ratio (10-20) Glucose (70-99(Fasting)) mg/dl POC Glucose 76 (70-99) mg/dl Lactate (0.4-2.0) mmol/L Calcium (8.6-10.3) mg/dl Magnesium (1.7-2.4) mg/dl Total Bilirubin (0.2-1.0) mg/dl AST (13-39) U/L ALT (7-52) U/L Alkaline Phosphatase (34-104) U/L Troponin I High Sens (0-14) pg/ml B-Natriuretic Peptide (0-100) pg/ml Total Protein (6.0-8.3) gm/dl Albumin (3.4-5.0) gm/dl Globulin (2.5-4.0) gm/dl Albumin/Globulin Ratio (0.9-2) Adenovirus (PCR) (NotDetected) B. pertussis DNA (PCR) (NotDetected) B.parapertussis DNA PCR (NotDetected) C. pneumoniae DNA (PCR) (NotDetected) Coronavirus OC43 (PCR) (NotDetected) Coronavirus HKU1 (PCR) (NotDetected) Coronavirus 229E (PCR) (NotDetected) SARS-CoV-2 (PCR) (NotDetected) Coronavirus NL63 (PCR) (NotDetected) Human Metapneumovir PCR (NotDetected) Influenza Type A (PCR) (NotDetected) Influenza Type B (PCR) (NotDetected) M. pneumoniae (PCR) (NotDetected) Parainfluenza 1 (PCR) (NotDetected) Parainfluenza 2 (PCR) (NotDetected) Parainfluenza 3 (PCR) (NotDetected) Parainfluenza 4 (PCR) (NotDetected) RSV (PCR) (NotDetected) Entero/Rhino (PCR) (NotDetected) Administered Medications Aspirin (Aspirin 81 Mg Ectab) 81 mg PO [facility] Stop: 07/13/24 08:59 Last Admin: 06/13/24 09:53 Dose: Not Given Documented By: JESSICA Budesonide (Budesonide 0.5 Mg/2 Ml Vial (Pulmicort)) 0.5 mg NEB BIDR [facility] Stop: 07/13/24 06:59 Last Admin: 06/13/24 07:07 Dose: 0.5 mg Documented By: CHRISTOPHER Bupropion HCl (Bupropion Sr 100 Mg Tabcr) 100 mg PO QAM [facility] Stop: 07/13/24 08:59 Last Admin: 06/13/24 09:53 Dose: Not Given Documented By: JESSICA Empagliflozin (Empagliflozin 10 Mg Tab) 10 mg PO DAILY [facility] Stop: 07/13/24 08:59 Last Admin: 06/13/24 09:54 Dose: Not Given Documented By: JESSICA Folic Acid (Folic Acid 1 Mg Tab) 1 mg PO QAM [facility] Stop: 07/13/24 08:59 Last Admin: 06/13/24 09:54 Dose: Not Given Documented By: JESSICA Formoterol Fumarate (Formoterol 20 Mcg/2 Ml Vial) 20 mcg INH BIDR [facility] Stop: 07/13/24 06:59 Last Admin: 06/13/24 07:08 Dose: 20 mcg Documented By: CHRISTOPHER Heparin Sodium (Porcine) (Heparin Sod 5,000 Unit/0.5 Ml Vial) 5,000 units SQ Q12 [facility] Stop: 07/13/24 08:59 Last Admin: 06/13/24 09:35 Dose: 5,000 units Documented By: JESSICA Isosorbide Mononitrate (Isosorbide [place] Extended Rel 30 Mg Tabcr) 30 mg PO [facility] Stop: 07/13/24 08:59 Last Admin: 06/13/24 09:54 Dose: Not Given Documented By: JESSICA Levothyroxine Sodium (Levothyroxine Sodium 25 Mcg Tablet) [facility]: 07/13/24 06:29 Last Admin: 06/13/24 06:47 Dose: Not Given Documented By: WALTER Levothyroxine Sodium (Levothyroxine Sodium 200 Mcg Tablet) 200 [facility] Stop: 07/13/24 06:29 Last Admin: 06/13/24 06:47 Dose: Not Given Documented By: WALTER Magnesium Oxide (Magnesium Oxide 400 Mg Tab) 400 mg PO [facility] Stop: 07/13/24 08:59 Last Admin: 06/13/24 09:54 Dose: Not Given Documented By: JESSICA Metoprolol Succinate (Metoprolol Succ 25mg Ext Rel Tab) 25 mg PO [facility] Stop: 07/13/24 08:59 Last Admin: 06/13/24 09:54 Dose: Not Given Documented By: JESSICA Pantoprazole Sodium (Pantoprazole 40 Mg Tab) 40 mg PO DAILYBB [facility] Stop: 07/13/24 06:29 Last Admin: 06/13/24 06:47 Dose: Not Given Documented By: WALTER Potassium Chloride (Potassium Chloride Crtab 20 Meq Tabcr) 20 meq PO BID [facility] Stop: 07/13/24 08:59 Last Admin: 06/13/24 09:54 Dose: Not Given Documented By: JESSICA Sertraline HCl (Sertraline Hcl 50 Mg Tablet) 50 mg PO QAM [facility] Stop: 07/13/24 08:59 Last Admin: 06/13/24 09:54 Dose: Not Given Documented By: JESSICA Spironolactone (Spironolactone 25 Mg Tab) 25 mg PO QAM [facility] Stop: 07/13/24 08:59 Last Admin: 06/13/24 09:54 Dose: Not Given Documented By: JESSICA Topiramate (Topiramate 100 Mg Tab) 100 mg PO QAM [facility] Stop: 07/13/24 08:59 Last Admin: 06/13/24 09:54 Dose: Not Given Documented By: JESSICA Torsemide (Torsemide 20 Mg Tab) [facility] [place] Stop: 07/13/24 08:59 Last Admin: 06/13/24 09:54 Dose: Not Given Documented By: JESSICA Discontinued Medications Albuterol (Albut/Ipratrop 3mg/0.5mg Neb 3 Ml Vial) 3 ml NEB NOW STA; Protocol Stop: 06/13/24 02:22 Last Admin: 06/13/24 02:33 Dose: 3 ml Documented By: CELE Dextrose (Dextrose 50% 50 Ml Syringe) 25 ml IV NOW ONE Stop: 06/13/24 03:17 Last Admin: 06/13/24 03:18 Dose: 25 ml Documented By: JSESICA Methylprednisolone (Methylprednisolone 125 Mg/2 Ml Vial) 60 mg IV NOW STA Stop: 06/13/24 02:29 Last Admin: 06/13/24 03:03 Dose: 60 mg Documented By: JESSICA Torsemide (Torsemide 20 Mg Tab) 40 mg PO NOW STA Stop: 06/13/24 14:09 Last Admin: 06/13/24 15:44 Dose: 40 mg Documented By: JESSICA Imaging Data Radiologist's Impression: Chest X-Ray 06/13/24 02:08 XR chest 1V not portable CLINICAL HISTORY: Chest pain, nonspecific TECHNIQUE: Single frontal radiograph of the chest was obtained. Comparison: Comparison is made to chest radiograph 02/05/2024 FINDINGS: Stable tracheostomy tube. Cardiomegaly is noted. Prominence and cephalization of the vasculature is seen. No evidence of pleural effusion or pneumothorax. IMPRESSION: Cardiomegaly and mild pulmonary edema. ACT 112: Negative or not required by law. Electronically signed by: Layo Cutler M.D. 06/13/2024 7:42 AM Discharge Plan Visit Data Chief Complaint: Respiratory Problems Stated Complaint: SHORTNESS OF BREATH, CHEST PAIN, WHEEZING ED Provider: Jasper Verma Discharge Problem: SOB (shortness of breath), Wheezing, Parainfluenza infection, Tracheostomy in place, Hypoglycemia Patient Disposition: Admitted As Inpatient Condition: Serious Discharge Instructions Interventions: ED Discharge Assessment Last Done: 06/13/24 05:43
[2024-06-13] MEDS: methylPREDNISolone 125 MG/2 ML VIAL IV STA (03:03)
[2024-06-13 03:10] LABS: Albumin Globulin Ratio 0.8 (0.9-2); Albumin Level 3.5 gm/dl (3.4-5.0); BUN Creatinine Ratio 22.4 (10-20); Bilirubin,Total 0.3 mg/dl (0.2-1.0); Calcium 9.1 mg/dl (8.6-10.3); Creatinine Clr Calc Pharmacy 50.3 ml/min; Est GFR (African American) 34.6 ml/min; Est GFR (Non-African American) 29.8 ml/min; Globulin 4.2 gm/dl (2.5-4.0); Magnesium 2.2 mg/dl (1.7-2.4); Partial Thromboplastin Time 26 Seconds (21-31); Potassium 4.4 mmol/L (3.5-5.1); Prothrombin Time 11.1 Seconds (9.0-12.0); Total Protein 7.7 gm/dl (6.0-8.3); Troponin I High Sensitivity 6.4 pg/ml (0-14)
[2024-06-13 03:13] LABS: Adenovirus PCR Not Detected (NotDetected); Bordetella parapertussis PCR Not Detected (NotDetected); Bordetella pertussis PCR Not Detected (NotDetected); Chlamydia pneumoniae PCR Not Detected (NotDetected); Coronavirus 229E PCR Not Detected (NotDetected); Coronavirus CoV-2 (COVID19)PCR Not Detected (NotDetected); Coronavirus HKU1 PCR Not Detected (NotDetected); Coronavirus NL63 PCR Not Detected (NotDetected); Coronavirus OC43PCR Not Detected (NotDetected); Human Metapneumovirus PCR Not Detected (NotDetected); Influenza A PCR Not Detected (NotDetected); Influenza B PCR Not Detected (NotDetected); Mycoplasma pneumoniae PCR Not Detected (NotDetected); Parainfluenza Virus 1 PCR Not Detected (NotDetected); Parainfluenza Virus 2 PCR Not Detected (NotDetected); Parainfluenza Virus 3 PCR DETECTED (NotDetected); Parainfluenza Virus 4 PCR Not Detected (NotDetected); Respiratory Syncytial VirusPCR Not Detected (NotDetected); Rhinovirus/Enterovirus PCR Not Detected (NotDetected)
[2024-06-13] MEDS: DEXTROSE 50% 50 ML SYRINGE IV ONE (03:18)
--- NOTE | 2024-06-13 04:06 | History & Physical Report ---
Date of Service June 13, 2024 Assessment & Plan (1) Morbid obesity with BMI of 60.0-69.9, adult: (2) Insulin-requiring or dependent type II diabetes mellitus: (3) Hypothyroidism: (4) HTN (hypertension): (5) Chronic kidney disease, stage 3b: (6) Physical deconditioning: (7) Hypoglycemia: (8) Tracheostomy in place: (9) Parainfluenza infection: (10) Wheezing: (11) SOB (shortness of breath): Plan Parainfluenza Virus | Acute on Chronic Hypoxic Respiratory Failure -Ongoing shortness of breath for two days at home -Currently satting 92% on 6L via trach collar. ABG showing mild acidosis -Received methylpred 60mg IV in ED -No obvious -Duoneb QIDR -Admit to PCU Hypoglycemia | Type 2 Diabetes Mellitus -Presented with BSG of 50 -Patient endorses poor PO intake in past few days -Uses insulin pump at home, will hold pump for now -Q2h BSG checks with hypoglycemia protocol, reassess need for insulin orders later in the day CKD Stage G3b/A2 -Cr 1.74 on admission, within range of baseline -Avoid nephrotoxic meds Chronic Diastolic Heart Failure -BNP normal on admission -Continue bumex, spironolactone -Monitor I's & O's Chronic Pain -Continue oxycodone 5mg BID per home regimen Admit to: PCU Diet: Carb conscious/T2DM VTE Prophylaxis: Heparin Code Status: Full Code History of Present Illness Primary Care Provider: Ofe Mcgee MD Whit Connelly is a 68 year-old female with medical history of tracheostomy dependent chronic hypoxic respiratory failure, RASHAAD, OHS as well as cor pulmonale with diastolic heart failure, COPD and IDDM presenting from home with concern for increased shortness of breath. Patient was brought to the emergency department, history was obtained from patient herself although somewhat limited due to somnolence during encounter. Patient states she has been having a hard time breathing for the past two days, she also endorses a decreased appetite and poor fluid intake over the same period. She denies any abdominal pain, nausea/vomiting/diarrhea, denies any changes in urination or bowel movements. While in the ED, patient was found to be hypoglycemic. EKG completed and continuous heart monitor was applied. ABG completed which was acidotic. Discussed with respiratory therapy options for respiratory support as it is listed that she uses a AVAPS machine at night. Respiratory therapy confirms that BiPAP is unable to be used with her trach and during her last admission (02/02- 03/02/24) she did not utilize any machine as we do not have any device that would adequately ventilate with her trach. Patient confirms that she is full code status. ED Course: -Albuterol treatment -Methylpred 60mg IV -Dextrose 25mL -Chest XR, EKG, ABG, CBC, CMP, BNP Allergies Allergy/AdvReac Type Severity Reaction Status Date / Time animal dander Allergy Intermediate Sneezing, Unverified 06/13/24 18:13 itchy watery eyes and Difficulty Breathing Penicillins Allergy Intermediate Hives Verified 06/13/24 17:56 tree and shrub pollen Allergy Intermediate Sneezing, Unverified 06/13/24 18:13 itchy watery eyes and Difficulty Breathing amitriptyline Allergy Unknown CAN'T Verified 06/13/24 17:56 REMEMBER doxycycline Allergy Unknown CAN'T Verified 06/13/24 17:56 REMEMBER guaifenesin Allergy Unknown CAN'T Verified 06/13/24 17:56 REMEMBER metformin Allergy Unknown CAN'T Verified 06/13/24 17:56 REMEMBER phenylephrine Allergy Unknown CAN'T Verified 06/13/24 17:56 REMEMBER pseudoephedrine Allergy Unknown CAN'T Verified 06/13/24 17:56 REMEMBER tetracycline Allergy Unknown CAN'T Verified 06/13/24 17:56 REMEMBER venlafaxine [From Effexor] Allergy Unknown CAN'T Verified 06/13/24 17:56 REMEMBER gabapentin AdvReac Intermediate BECOMES Verified 06/13/24 17:56 AGGRESSIVE Home Medications Medication Instructions Recorded Confirmed Type aspirin 81 mg tablet,delayed 81 mg PO QAM #30 tabs 04/06/23 06/13/24 Rx release (Robert Low Dose Aspirin) atorvastatin 40 mg tablet 40 mg PO QPM #30 tabs 04/06/23 06/13/24 Rx folic acid 1 mg tablet 1 mg PO QAM #30 tabs 04/06/23 06/13/24 Rx magnesium oxide 400 mg PO QAM #30 tabs 04/06/23 06/13/24 Rx multivitamin 1 tab PO QAM #30 tabs 04/06/23 06/13/24 Rx nitroglycerin 0.4 mg sublingual 0.4 mg sublingual DIRECTED PRN 04/06/23 06/13/24 Rx tablet Chest Pain #25 tabs pantoprazole 40 mg tablet,delayed 40 mg PO DAILYBB #30 tabs 04/06/23 06/13/24 Rx release sertraline 50 mg tablet 50 mg PO QAM #30 tabs 04/06/23 06/13/24 Rx spironolactone 25 mg tablet 25 mg PO QAM #30 tabs 04/06/23 06/13/24 Rx blood-glucose meter (OneTouch #1 ea 07/21/23 06/05/24 Rx Ultra2 Meter) pen needle, diabetic 32 gauge x #150 ea 08/26/23 06/05/24 Rx 5/32" (BD Kaitlin 2nd Gen Pen Needle) pen needle, diabetic 32 gauge x #50 ea 08/26/23 06/05/24 Rx 5/32" (BD Kaitlin 2nd Gen Pen Needle) empagliflozin 10 mg tablet 10 mg PO DAILY #30 tabs 10/07/23 06/13/24 Rx (Jardiance) nebulizers #1 ea 11/16/23 06/05/24 Rx ipratropium 0.5 mg-albuterol 3 mg 3 ml inhalation Q4H PRN COUGHING, 11/25/23 0 06/13/24 Rx (2.5 mg base)/3 mL nebulization WHEEZING, SHORTNESS OF BREATH #180 soln mL diclofenac sodium 1 % topical gel 4 g EXT QID PRN Pain 01/15/24 06/13/24 History (Voltaren Arthritis Pain) naloxone 4 mg/actuation nasal 4 mg intranasal DIRECTED PRN 01/15/24 06/13/24 History spray (Narcan) OVERDOSE bupropion HCl 100 mg tablet,12 hr See Rx Instructions .Route .COMPLEX 02/03/24 06/13/24 History sustained-release potassium chloride 20 mEq 20 meq PO BID 02/03/24 06/13/24 History tablet,extended release budesonide 0.5 mg/2 mL suspension 0.5 mg (2 mL) NEB BIDR #120 mL 03/02/24 06/13/24 Rx for nebulization diclofenac sodium 75 mg 75 mg PO BID #60 tabs 03/02/24 06/13/24 Rx tablet,delayed release famotidine 20 mg tablet 20 mg PO DAILY PRN heartburn #30 03/02/24 06/13/24 Rx tabs formoterol fumarate 20 mcg/2 mL 20 mcg (2 mL) inhalation BIDR #120 03/02/24 06/13/24 Rx solution for nebulization mL (Perforomist) ipratropium 20 mcg-albuterol 100 1 puff inhalation QID PRN 03/02/24 06/13/24 Rx mcg/actuation mist for inhalation shortness of breath #4 grams (Combivent Respimat) oxycodone 5 mg tablet 5 mg PO BID PRN moderate-severe 03/02/24 06/13/24 Rx pain #60 tabs insulin aspart U-100 100 unit/mL See Rx Instructions subcut DAILY 03/23/24 06/13/24 Rx subcutaneous solution (Novolog #100 mL U-100 Insulin aspart) blood sugar diagnostic (OneTouch #400 ea 05/31/24 06/05/24 Rx Ultra Test strips) furosemide 80 mg tablet 80 mg PO QAM 06/13/24 06/13/24 History isosorbide mononitrate 60 mg 60 mg PO QAM 06/13/24 06/13/24 History tablet,extended release 24 hr levothyroxine 200 mcg tablet See Rx Instructions .Route .COMPLEX 06/13/24 06/13/24 History levothyroxine 25 mcg tablet See Rx Instructions .Route .COMPLEX 06/13/24 06/13/24 History metoprolol tartrate 25 mg tablet 25 mg PO BID 06/13/24 06/13/24 History topiramate 100 mg tablet See Rx Instructions .Route .COMPLEX 06/13/24 06/13/24 History torsemide 20 mg tablet 40 mg PO QPM 06/13/24 06/13/24 History Past Med/Surg History Problem List Hypoglycemia (Acute) Tracheostomy in place (Acute) Parainfluenza infection (Acute) Wheezing (Acute) SOB (shortness of breath) (Acute) Morbid obesity with BMI of 60.0-69.9, adult Insulin-requiring or dependent type II diabetes mellitus Hypothyroidism HTN (hypertension) Chronic kidney disease, stage 3b Physical deconditioning Chronic kidney disease, stage 3 Dyslipidemia, goal LDL below 70 HTN, goal below 130/80 Chronic pain Iron deficiency Chronic hypoxic respiratory failure Diabetic nephropathy Seborrhea Back pain Open wound Lesion of left [place] kidney Ambulatory dysfunction Anemia Left knee pain Pain and swelling of right lower extremity (Acute) Pain and swelling of left lower extremity (Acute) Common migraine without aura (Acute) Hypersomnia with sleep apnea (Acute) Memory loss (Acute) Myoclonus (Acute) Tracheobronchitis (Acute) Palpitations Dyslipidemia (Chronic) MRSA (methicillin resistant staph aureus) culture positive (Chronic) "sputum 11/2015" History of hysterectomy (Chronic) Right ventricular dysfunction (Chronic) Medical History C. difficile diarrhea Acute gout Wound, breast Type 2 diabetes mellitus Right bundle branch block Presence of tracheostomy Morbid obesity Weakness Cor pulmonale CHF (congestive heart failure) Chronic diastolic heart failure cor pulmonale Chronic obstructive pulmonary disease Obesity hypoventilation syndrome Generalized weakness Fracture of distal end of right femur Hypothyroidism (acquired) Ureterolithiasis Vitamin D deficiency Adjustment disorder with depressed mood Tinea unguium GERD (gastroesophageal reflux disease) Anxiety Coronary artery disease RASHAAD (obstructive sleep apnea) Sepsis Surgical History History of tonsillectomy and adenoidectomy History of cholecystectomy History of appendectomy Family History Mother Coronary heart disease COPD (chronic obstructive pulmonary disease) Father Suicide Hung himself. Pt found him. Unknown Lung cancer Social History Smoking Status: Never smoker Tobacco Type: Cigarettes Second Hand Exposure: No; Do You Dip or Chew Tobacco: No; Hx Alcohol Use: No Hx Substance Use: No Preferred Language: Irish Communication Ability: Effective Visual Impairment: Limited Hearing Ability: Normal Line Rider Required: No Beliefs That Will Affect Care: None marital status: Current Living Situation: Family Current Living Situation Comment: with daughter current occupational status: disabled How many Children do You have: 1 Other Information That Helps Us Care for You: No Feels Safe at Home: Yes Diet: regular Diet Comment: Drinks 1 Boost drink supplement in the morning caffeine: Yes (1 coffee daily) Physical Activity Frequency: Does not Exercise Seatbelt Use: always Do you think of yourself as: straight/heterosexual Gender Identity: Female Assistive Devices: Bedside Commode, BiPap, Hospital Bed, Oxygen - Continuous and Wheelchair Review of Systems Review of Systems: As per above Physical Exam Constitutional: + ill appearing, + morbidly obese and + lethargic Eyes: + anicteric sclerae; no conjunctival abn ormality ENMT: Ears: no external ear abnormality Nose: no external nose abnormality Moist mucous membranes Respiratory: Tracheostomy in place. Diminished lung sounds, +wheezes. Increased respiratory efforts Cardiovascular: Rate/Rhythm: regular rate and regular rhythm Extremities: + edema Gastrointestinal (Abdomen): Inspection/Auscultation: abdomen not distended Percussion/Palpation: abdomen soft; abdomen nontender and no guarding Musculoskeletal: Lower extremities tender to palpation. 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 Skin: Mild erythema at bilateral lower extremities, no rashes visible Psychiatric: Somnolent but oriented x3 when awakened Results & Data Results & Data Vital Signs (Past 12 Hours) Vital Signs Temp Pulse Resp BP Pulse Ox O2 Del Method O2 Flow Rate 06/13/24 02:34 16 97 Trach Collar 6 06/13/24 02:08 96 Trach Collar 7 06/13/24 02:04 71 06/13/24 02:04 36.9 C 72 32 H 151/77 H 89 L Room Air FiO2 06/13/24 02:34 28 06/13/24 02:08 06/13/24 02:04 06/13/24 02:04 Supervising Physician Co-Signing Physician Notes Patient seen and examined, chart reviewed, case discussed with Dr. Dumont and I agree with the assessment and plan as above. Patient is a 68 yo female with history of chronic respiratory failure with tracheostomy in place, COPD, DM presenting with two days of progressive shortness of breath and poor appetite. Patient hypoglycemic in the ER and was administered dextrose. On exam patient is afebrile, HD stable Somnolent but arousable - answers questions and follows commands Metal trach in place with trach collar +S1/S2, regular Lungs - diminished breath sounds bilaterally, no rhonchi or wheezes Abd soft, NT/ND Ext well perfused Labs and images reviewed +Parainfluenza virus Assessment/Plan -Parainfluenza virus - supportive care. Continue Trach collar 6L - adequate oxygenation. ABG with acute on chronic respiratory acidosis - patient is to use AVAPS machine at home qHS and with naps. Unfortunately we are unable to accommodate. Could use BiPAP if absolutely necessary, however, will hold off for now Monitor BSG - holding insulin as patient was hypoglycemic on arrival Remainder of plan as above Resident Activity Tracking Resident Involvement: Resident Care Provided Care Provided: Adult Hospital Medicine (4) HTN (hypertension) Hypertension type: primary hypertension Qualified Code(s): I10 - Essential (primary) hypertension
[2024-06-13] MEDS ORDERED: CARBOHYDRATES FOR HYPOGLYCEMIA PO PRN (05:10)
[2024-06-13] MEDS ORDERED: GLUCOSE 10 TAB/TUBE PO PRN (05:10)
[2024-06-13] MEDS ORDERED: GLUCAGON FOR INJ 1 MG VIAL SQ PRN (05:10)
[2024-06-13] MEDS ORDERED: GLUCOSE 40% GEL 15 GM TUBE PO PRN (05:10)
[2024-06-13] MEDS ORDERED: DEXTROSE 50% 50 ML SYRINGE IV PRN (05:10)
[2024-06-13] MEDS ORDERED: ONDANSETRON INJ 2 MG/ML 2 ML VIAL IV PRN (05:56)
[2024-06-13] MEDS ORDERED: ACETAMINOPHEN 325 MG TAB PO PRN (05:56)
[2024-06-13] MEDS ORDERED: POLYETHYLENE (MIRALAX) 17 GM PACK PO PRN (05:56)
[2024-06-13] MEDS ORDERED: FAMOTIDINE 20 MG TAB PO PRN (06:12)
[2024-06-13] MEDS ORDERED: NALOXONE NASAL SPRAY 4 MG ER HOMEPACK PRN (06:12)
[2024-06-13] MEDS ORDERED: IPRATROPIUM BROMIDE/ALBUTEROL respimat INH INH PRN (06:12)
[2024-06-13] MEDS ORDERED: NITROGLYCERIN SL 0.4 MG/TAB TAB SL PRN (06:12)
[2024-06-13] MEDS ORDERED: oxyCODONE HCL IR 5 MG TAB (IMMEDIATE RELEASE) PO PRN (06:12)
[2024-06-13] MEDS ORDERED: ALBUTEROL HFA 8 GM INHALER INH PRN (06:26)
[2024-06-13] MEDS ORDERED: IPRATROPIUM BROMIDE HFA INHALER INH PRN (06:26)
[2024-06-13] MEDS: PANTOprazole 40 MG TAB PO SCH (06:47)
[2024-06-13] MEDS: LEVOTHYROXINE SODIUM 200 MCG TABLET PO SCH (06:47)
[2024-06-13] MEDS: LEVOTHYROXINE SODIUM 25 MCG TABLET PO SCH (06:47)
[2024-06-13] MEDS: BUDESONIDE 0.5 MG/2 ML VIAL (PULMICORT) NEB SCH (07:07)
[2024-06-13] MEDS: FORMOTEROL 20 MCG/2 ML VIAL INH SCH (07:08)
--- NOTE | 2024-06-13 07:20 | Hospitalist Progress Note ---
"Date of Service June 13, 2024 Assessment & Plan (1) Parainfluenza infection: (2) SOB (shortness of breath): (3) Wheezing: (4) Hypoglycemia: (5) Morbid obesity with BMI of 60.0-69.9, adult: (6) Insulin-requiring or dependent type II diabetes mellitus: (7) HTN (hypertension): (8) Hypothyroidism: (9) Chronic kidney disease, stage 3b: (10) Physical deconditioning: (11) Tracheostomy in place: Plan 1. Parainfluenza Virus | Acute on Chronic Hypoxic Respiratory Failure -Ongoing shortness of breath for two days at home -Currently satting 95-97% on 6L via trach collar. -Received methylpred 60mg IV in ED -No obvious - Continue Duoneb QID Hypoglycemia | Type 2 Diabetes Mellitus -Presented with BSG of 50 in ED, improved to 133 after admission -Uses insulin pump at home, will hold pump for now -Start aspart for BSG Range: Low 110 mg/dL, High 160 mg/dL, Correction Factor: 35 mg/dL/unit Carbohydrate ratio = 15 g/unit -BSGs ACHS if eating, q6h CKD Stage G3b/A2 -Cr 1.74 on admission, within range of baseline on 1.4 to 1.8 -Avoid nephrotoxic meds - Continue to monitor Chronic Diastolic Heart Failure -BNP normal on admission -Continue bumex, spironolactone -Monitor I's & O's Chronic Pain -Continue oxycodone 5mg BID per home regimen VTE Prophylaxis - Continue heparin Admission and Anticipated Discharge Date Admission Date: June 13, 2024 Supervising Physician Co-Signing Physician Notes Attending Physician Supervision Note: I independently interviewed and examined the patient and verified the pappas history and physical, reviewed labs and image studies and agree with findings and care plan noted above. Subjective Pt is a 68 yo female with history of chronic hypoxic respiratory failure with trach, CKD3, DM2, chronic femur fx and morbid obesity presented to ED with increased SOB. Pt found to have parainfluenza infection in ED. Currently is lethargic and not answering questions this morning Review of Systems Review of Systems: As per above Physical Exam Constitutional: + ill appearing, + morbidly obese and + lethargic Eyes: + anicteric sclerae; no conjunctival abn ormality Respiratory: Auscultation: + wheezes (Spink bilaterally with expiration) Labored breathing Cardiovascular: Rate/Rhythm: regular rate and regular rhythm Extremities: + edema (Non pitting) Gastrointestinal (Abdomen): Inspection/Auscultation: abdomen not distended Percussion/Palpation: abdomen soft; abdomen nontender and no guarding Results & Data Results & Data Vital Signs (Past 12 Hours) Vital Signs Temp Pulse Pulse Pulse Resp BP BP 06/13/24 07:08 75 20 06/13/24 06:39 72 06/13/24 06:16 36.2 C L 72 20 148/82 H 06/13/24 05:56 06/13/24 05:01 74 22 06/13/24 04:30 66 19 146/96 H 06/13/24 04:03 60 24 126/70 06/13/24 03:03 66 19 128/82 06/13/24 02:34 16 06/13/24 02:08 06/13/24 02:04 71 06/13/24 02:04 36.9 C 72 32 H 151/77 H BP Pulse Ox Pulse Ox O2 Del Method O2 Del Method O2 Flow Rate O2 Flow Rate 06/13/24 07:08 96 Trach Collar 6 06/13/24 06:39 06/13/24 06:16 96 Trach Collar 6 06/13/24 05:56 95 Trach Collar 6 06/13/24 05:01 134/87 95 Trach Collar 06/13/24 04:30 92 06/13/24 04:03 94 06/13/24 03:03 95 06/13/24 02:34 97 Trach Collar 6 06/13/24 02:08 96 Trach Collar 7 06/13/24 02:04 06/13/24 02:04 89 L Room Air FiO2 06/13/24 07:08 28 06/13/24 06:39 06/13/24 06:16 06/13/24 05:56 06/13/24 05:01 06/13/24 04:30 06/13/24 04:03 06/13/24 03:03 06/13/24 02:34 28 06/13/24 02:08 06/13/24 02:04 06/13/24 02:04 Laboratory Results 06/13/24 06/13/24 06/13/24 Range/Units 07:16 05:22 03:55 WBC (4.8-10.8) K/ul RBC (4.20-5.40) M/uL Hgb (12.0-16.0) g/dl Hct (37.0-47.0) % MCV (80.0-100.0) fL MCH (25.0-34.0) pg MCHC (32.0-36.0) g/dL RDW Std Deviation (36.4-46.3) fL RDW Coeff of Amee (11.5-14.5) % Plt Count (130-400) K/uL MPV (9.4-12.4) fL Immature Gran % (Auto) % Neut % (Auto) % Lymph % (Auto) % Garza % (Auto) % Eos % (Auto) % Baso % (Auto) % Neut # (Auto) (1.40-6.50) K/uL Lymph # (Auto) (1.20-3.40) K/uL Garza # (Auto) (0.11-0.59) K/uL Eos # (Auto) (0.00-0.50) K/uL Baso # (Auto) (0.00-0.20) K/uL Immature Gran # (Auto) (0.01-0.20) K/uL PT (9.0-12.0) Seconds INR (0.9-1.1) APTT (21-31) Seconds PTT Ratio Sodium (136-145) mmol/L Potassium (3.5-5.1) mmol/L Chloride (98-107) mmol/L Carbon Dioxide (21-32) mmol/L Anion Gap (3-11) BUN (6-23) mg/dl Creatinine (0.6-1.2) mg/dl Est Cr Clr Drug Dosing ml/min Est GFR ( Amer) ml/min Est GFR (Non-Af Amer) ml/min BUN/Creatinine Ratio (10-20) Glucose (70-99(Fasting)) mg/dl POC Glucose 133 H 78 76 (70-99) mg/dl Lactate (0.4-2.0) mmol/L Calcium (8.6-10.3) mg/dl Magnesium (1.7-2.4) mg/dl Total Bilirubin (0.2-1.0) mg/dl AST (13-39) U/L ALT (7-52) U/L Alkaline Phosphatase (34-104) U/L Troponin I High Sens (0-14) pg/ml B-Natriuretic Peptide (0-100) pg/ml Total Protein (6.0-8.3) gm/dl Albumin (3.4-5.0) gm/dl Globulin (2.5-4.0) gm/dl Albumin/Globulin Ratio (0.9-2) Adenovirus (PCR) (NotDetected) B. pertussis DNA (PCR) (NotDetected) B.parapertussis DNA PCR (NotDetected) C. pneumoniae DNA (PCR) (NotDetected) Coronavirus OC43 (PCR) (NotDetected) Coronavirus HKU1 (PCR) (NotDetected) Coronavirus 229E (PCR) (NotDetected) SARS-CoV-2 (PCR) (NotDetected) Coronavirus NL63 (PCR) (NotDetected) Human Metapneumovir PCR (NotDetected) Influenza Type A (PCR) (NotDetected) Influenza Type B (PCR) (NotDetected) M. pneumoniae (PCR) (NotDetected) Parainfluenza 1 (PCR) (NotDetected) Parainfluenza 2 (PCR) (NotDetected) Parainfluenza 3 (PCR) (NotDetected) Parainfluenza 4 (PCR) (NotDetected) RSV (PCR) (NotDetected) Entero/Rhino (PCR) (NotDetected) 06/13/24 06/13/24 06/13/24 Range/Units 03:14 02:35 02:14 WBC 10.03 (4.8-10.8) K/ul RBC 4.28 (4.20-5.40) M/uL Hgb 11.9 L (12.0-16.0) g/dl Hct 40.8 (37.0-47.0) % MCV 95.3 (80.0-100.0) fL MCH 27.8 (25.0-34.0) pg MCHC 29.2 L (32.0-36.0) g/dL RDW Std Deviation 55.9 H (36.4-46.3) fL RDW Coeff of Amee 15.9 H (11.5-14.5) % Plt Count 258 (130-400) K/uL MPV 9.7 (9.4-12.4) fL Immature Gran % (Auto) 1.5 % Neut % (Auto) 63.0 % Lymph % (Auto) 18.4 % Garza % (Auto) 12.6 % Eos % (Auto) 4.0 % Baso % (Auto) 0.5 % Neut # (Auto) 6.32 (1.40-6.50) K/uL Lymph # (Auto) 1.85 (1.20-3.40) K/uL Garza # (Auto) 1.26 H (0.11-0.59) K/uL Eos # (Auto) 0.40 (0.00-0.50) K/uL Baso # (Auto) 0.05 (0.00-0.20) K/uL Immature Gran # (Auto) 0.15 (0.01-0.20) K/uL PT 11.1 (9.0-12.0) Seconds INR 1.0 (0.9-1.1) APTT 26 (21-31) Seconds PTT Ratio 1.0 Sodium 137 (136-145) mmol/L Potassium 4.4 (3.5-5.1) mmol/L Chloride 106 (98-107) mmol/L Carbon Dioxide 26 (21-32) mmol/L Anion Gap 5 (3-11) BUN 39 H (6-23) mg/dl Creatinine 1.74 H (0.6-1.2) mg/dl Est Cr Clr Drug Dosing 50.3 ml/min Est GFR ( Amer) 34.6 ml/min Est GFR (Non-Af Amer) 29.8 ml/min BUN/Creatinine Ratio 22.4 H (10-20) Glucose 50 L* (70-99(Fasting)) mg/dl POC Glucose 47 L* (70-99) mg/dl Lactate 0.7 (0.4-2.0) mmol/L Calcium 9.1 (8.6-10.3) mg/dl Magnesium 2.2 (1.7-2.4) mg/dl Total Bilirubin 0.3 (0.2-1.0) mg/dl AST 29 (13-39) U/L ALT 37 (7-52) U/L Alkaline Phosphatase 121 H (34-104) U/L Troponin I High Sens 6.4 (0-14) pg/ml B-Natriuretic Peptide 42 (0-100) pg/ml Total Protein 7.7 (6.0-8.3) gm/dl Albumin 3.5 (3.4-5.0) gm/dl Globulin 4.2 H (2.5-4.0) gm/dl Albumin/Globulin Ratio 0.8 L (0.9-2) Adenovirus (PCR) Not Detected (NotDetected) B. pertussis DNA (PCR) Not Detected (NotDetected) B.parapertussis DNA PCR Not Detected (NotDetected) C. pneumoniae DNA (PCR) Not Detected (NotDetected) Coronavirus OC43 (PCR) Not Detected (NotDetected) Coronavirus HKU1 (PCR) Not Detected (NotDetected) Coronavirus 229E (PCR) Not Detected (NotDetected) SARS-CoV-2 (PCR) Not Detected (NotDetected) Coronavirus NL63 (PCR) Not Detected (NotDetected) Human Metapneumovir PCR Not Detected (NotDetected) Influenza Type A (PCR) Not Detected (NotDetected) Influenza Type B (PCR) Not Detected (NotDetected) M. pneumoniae (PCR) Not Detected (NotDetected) Parainfluenza 1 (PCR) Not Detected (NotDetected) Parainfluenza 2 (PCR) Not Detected (NotDetected) Parainfluenza 3 (PCR) DETECTED A (NotDetected) Parainfluenza 4 (PCR) Not Detected (NotDetected) RSV (PCR) Not Detected (NotDetected) Entero/Rhino (PCR) Not Detected (NotDetected) (7) HTN (hypertension) Hypertension type: primary hypertension Qualified Code(s): I10 - Essential (primary) hypertension"
--- NOTE | 2024-06-13 07:43 | XRay Report ---
XR chest 1V not portable CLINICAL HISTORY: Chest pain, nonspecific TECHNIQUE: Single frontal radiograph of the chest was obtained. Comparison: Comparison is made to chest radiograph 02/05/2024 FINDINGS: Stable tracheostomy tube. Cardiomegaly is noted. Prominence and cephalization of the vasculature is s een. No evidence of pleural effusion or pneumothorax. IMPRESSION: Cardiomegaly and mild pulmonary edema. ACT 112: Negative or not required by law. Electronically signed by: Layo Cutler M.D. 06/13/2024 7:42 AM
[2024-06-13 09:26] LABS: iSTAT Arterial Blood Gas HCO3 24 meg/L (19-24); iSTAT Arterial Blood Gas pCO2 57 mmHg (35-46); iSTAT Arterial Blood Gas pH 7.23 (7.35-7.45); iSTAT Arterial Blood Gas pO2 89 mmHg (80-95); iSTAT Carbon Dioxide 26 mmol/L (24-31); iSTAT Hematocrit 36 % (37-47); iSTAT Hemoglobin 12.2 g/dl (12.0-16.0); iSTAT Potassium 4.5 mmol/L (3.3-5.0); iSTAT Sodium 139 mmol/L (135-144)
[2024-06-13] MEDS: HEPARIN SOD 5,000 UNIT/0.5 ML VIAL SQ SCH (09:35)
[2024-06-13] MEDS: ASPIRIN 81 MG ECTAB PO SCH (09:53)
[2024-06-13] MEDS: buPROPion SR 100 MG TABCR PO SCH ×2 (09:53→20:26)
[2024-06-13] MEDS: ISOSORBIDE MONO EXTENDED REL 30 MG TABCR PO SCH (09:54)
[2024-06-13] MEDS: TORSEMIDE 20 MG TAB PO SCH (09:54)
[2024-06-13] MEDS: METOPROLOL SUCC 25MG EXT REL TAB PO SCH (09:54)
[2024-06-13] MEDS: TOPIRAMATE 100 MG TAB PO SCH (09:54)
[2024-06-13] MEDS: EMPAGLIFLOZIN 10 MG TAB PO SCH (09:54)
[2024-06-13] MEDS: MAGNESIUM OXIDE 400 MG TAB PO SCH (09:54)
[2024-06-13] MEDS: SPIRONOLACTONE 25 MG TAB PO SCH (09:54)
[2024-06-13] MEDS: FOLIC ACID 1 MG TAB PO SCH (09:54)
[2024-06-13] MEDS: POTASSIUM CHLORIDE CRTAB 20 MEQ TABCR PO SCH (09:54)
[2024-06-13] MEDS: SERTRALINE HCL 50 MG TABLET PO SCH (09:54)
[2024-06-13] MEDS: TORSEMIDE 20 MG TAB PO STA (15:44)
[2024-06-13] MEDS: INSULIN ASPART PER UNIT CHARGE SC SCH (17:50)
--- NOTE | 2024-06-13 19:42 | Billing Data ---
Date of Service June 13, 2024 Coding Level of Care Code 38895 INT INP/OBS CARE
--- NOTE | 2024-06-13 19:52 | Electrocardiogram Report ---
Test Reason : Blood Pressure : / mmHG Vent. Rate : 073 BPM Atrial Rate : 073 BPM P-R Int : 232 ms QRS Dur : 112 ms QT Int : 400 ms P-R-T Axes : 000 -50 -37 degrees QTc Int : 441 ms Sinus rhythm with 1st degree A-V block with Premature ventricular complexes Left axis deviation Low voltage QRS Incomplete right bundle branch block Anterolateral infarct (cited on or before 04-FEB-2024) Abnormal ECG When compared with ECG of 04-FEB-2024 14:52, Incomplete right bundle branch block has replaced Right bundle branch block Confirmed by Nura López ([id number]) on 06/13/2024 7:51:49 PM Referred By: REFERRED SELF Confirmed By:Nura López
[2024-06-13] MEDS: ATORVASTATIN 40 MG TAB PO SCH (20:26)
[2024-06-13] MEDS: MELATONIN 3 MG TAB PO SCH (20:27)
[2024-06-14 05:46] LABS: Base Excess VBG 0.5 mEq/L; HCO3 VBG 29 mmol/L; Oxygen Saturation VBG 90.1 %; PCO2 VBG 63 mmHg (38-50); PO2 VBG 57 mmHg; pH VBG 7.27 (7.36-7.41)
[2024-06-14 06:02] LABS: Basophils # (auto) 0.04 K/uL (0.00-0.20); Basophils % (auto) 0.5 %; Eosinophils # (auto) 0.16 K/uL (0.00-0.50); Eosinophils % (auto) 1.9 %; Hemoglobin 11.5 g/dl (12.0-16.0); Immature Granulocytes # (auto) 0.11 K/uL (0.01-0.20); Immature Granulocytes % (auto) 1.3 %; Lymphocytes # (auto) 1.53 K/uL (1.20-3.40); Lymphocytes % (auto) 17.9 %; Mean Corpuscular Hemoglobin 27.4 pg (25.0-34.0); Mean Corpuscular Hgb Conc 28.8 g/dL (32.0-36.0); Mean Corpuscular Volume 95.2 fL (80.0-100.0); Mean Platelet Volume 9.6 fL (9.4-12.4); Monocytes # (auto) 0.86 K/uL (0.11-0.59); Monocytes % (auto) 10.1 %; Neutrophils # (auto) 5.83 K/uL (1.40-6.50); Neutrophils % (auto) 68.3 %; Platelet Count 244 K/uL (130-400); RDW Coefficient of Variation 15.8 % (11.5-14.5); RDW Standard Deviation 54.9 fL (36.4-46.3); White Blood Count 8.53 K/ul (4.8-10.8)
[2024-06-14 06:19] LABS: Albumin Globulin Ratio 0.9 (0.9-2); Albumin Level 3.4 gm/dl (3.4-5.0); BUN Creatinine Ratio 25.9 (10-20); Bilirubin,Total 0.3 mg/dl (0.2-1.0); Calcium 9.1 mg/dl (8.6-10.3); Creatinine Clr Calc Pharmacy 52.8 ml/min; Est GFR (African American) 36.6 ml/min; Est GFR (Non-African American) 31.6 ml/min; Potassium 4.3 mmol/L (3.5-5.1); Total Protein 7.4 gm/dl (6.0-8.3)
--- NOTE | 2024-06-14 07:06 | Hospitalist Progress Note ---
"Date of Service June 14, 2024 Assessment & Plan (1) Parainfluenza infection: (2) SOB (shortness of breath): (3) Skin ulcer of groin, limited to breakdown of skin: (4) Wheezing: (5) Hypoglycemia: (6) Morbid obesity with BMI of 60.0-69.9, adult: (7) Insulin-requiring or dependent type II diabetes mellitus: (8) HTN (hypertension): (9) Hypothyroidism: (10) Chronic kidney disease, stage 3b: (11) Physical deconditioning: (12) Tracheostomy in place: Plan 1. Parainfluenza Virus | Acute on Chronic Hypoxic Respiratory Failure -Ongoing shortness of breath -Currently satting 95-97% on 5-7L via trach collar. - Continue Duoneb QID - Continue budesonide - Discontinued Fomoterol per pt report of allergy - Pt uses 5L O2 at night at home, can plan for D/C 06-15-24 as she can continue recovery at home with O2 supplementation Hypoglycemia | Type 2 Diabetes Mellitus -Presented with BSG of 50 in ED, resolved -Uses insulin pump at home, will hold pump for now -Continue Aspart for BSG Range: Low 110 mg/dL, High 160 mg/dL, Correction Fact or: 35 mg/dL/unit Carbohydrate ratio = 15 g/unit -BSGs ACHS if eating, q6h Groin Skin breakdown/irritation -Pt's skin fold and genital area is red and demonstrates breakdown. She is able to tolerate hygiene after voiding. -Ordered consult with wound care nurse CKD Stage G3b/A2 -Cr remains in range of baseline on 1.4 to 1.8 -Avoid nephrotoxic meds - Continue to monitor Chronic Diastolic Heart Failure -BNP normal on admission -Continue bumex, spironolactone -Monitor I's & O's Chronic Pain -Continue oxycodone 5mg BID per home regimen VTE Prophylaxis - Continue heparin Admission and Anticipated Discharge Date Admission Date: June 13, 2024 Supervising Physician Co-Signing Physician Notes Attending Physician Supervision Note: I independently interviewed and examined the patient and verified the pappas history and physical, reviewed labs and image studies and agree with findings and care plan noted above. Assessment/Plan -Parainfluenza virus - supportive care. Continue Trach collar 6L - adequate oxygenation. ABG with acute on chronic respiratory acidosis - patient is to use AVAPS machine at home qHS and with naps. Unfortunately we are unable to accommodate. Could use BiPAP if absolutely necessary but will hold off for now Hypoglycemia/DM - On insulin pump at home - held. Monitor blood sugars. continue insulin aspart. Groin skin breakdown - wound nurse consult placed. If continues to be on stable O2 need - anticipate d/c home tomorrow Subjective Pt is a 68 yo female with history of chronic hypoxic respiratory failure with trach, CKD3, DM2, chronic femur fx and morbid obesity presented to ED on 06-13-24 with increased SOB. Pt found to have parainfluenza infection in ED. Pt had increase sputum production over night and required suction from her trach. Suction started producing sputum streaked with blood. Pt reports feeling a little better, still has low appetite. Review of Systems Review of Systems: As per above Physical Exam Constitutional: + morbidly obese alert, but talking. Using head nods or hand motions to communicate Eyes: + anicteric sclerae; no conjunctival abn ormality Neck: trach in place Respiratory: Auscultation: + wheezes ([place] bilaterally with expiration) Cardiovascular: Rate/Rhythm: regular rate and regular rhythm Extremities: + edema (Non pitting) Gastrointestinal (Abdomen): Inspection/Auscultation: abdomen not distended Percussion/Palpation: abdomen soft; abdomen nontender and no guarding Results & Data Results & Data Vital Signs (Past 12 Hours) Vital Signs Temp Pulse Pulse Resp BP Pulse Ox O2 Del Method 06/14/24 02:39 36.7 C 87 20 140/68 97 Trach Collar 06/13/24 23:00 36.6 C 95 H 19 133/73 97 Nasal Cannula, Trach Collar 06/13/24 22:00 92 H 06/13/24 21:00 Trach Collar 06/13/24 19:24 36.6 C 86 18 134/65 98 Trach Collar O2 Flow Rate 06/14/24 02:39 06/13/24 23:00 06/13/24 22:00 06/13/24 21:00 6 06/13/24 19:24 Laboratory Results 06/14/24 06/13/24 06/13/24 Range/Units 05:28 20:02 16:18 WBC 8.53 (4.8-10.8) K/ul RBC 4.20 (4.20-5.40) M/uL Hgb 11.5 L (12.0-16.0) g/dl POC Hgb (12.0-16.0) g/dl Hct 40.0 (37.0-47.0) % POC Hct (37-47) % MCV 95.2 (80.0-100.0) fL MCH 27.4 (25.0-34.0) pg MCHC 28.8 L (32.0-36.0) g/dL RDW Std Deviation 54.9 H (36.4-46.3) fL RDW Coeff of Amee 15.8 H (11.5-14.5) % Plt Count 244 (130-400) K/uL MPV 9.6 (9.4-12.4) fL Immature Gran % (Auto) 1.3 % Neut % (Auto) 68.3 % Lymph % (Auto) 17.9 % [place] % (Auto) 10.1 % Eos % (Auto) 1.9 % Baso % (Auto) 0.5 % Neut # (Auto) 5.83 (1.40-6.50) K/uL Lymph # (Auto) 1.53 (1.20-3.40) K/uL [place] # (Auto) 0.86 H (0.11-0.59) K/uL Eos # (Auto) 0.16 (0.00-0.50) K/uL Baso # (Auto) 0.04 (0.00-0.20) K/uL Immature Gran # (Auto) 0.11 (0.01-0.20) K/uL POC pH (7.35-7.45) POC pCO2 (35-46) mmHg POC pO2 (80-95) mmHg POC HCO3 (19-24) davis/L POC Total CO2 (24-31) mmol/L POC Base Excess (-9-1.8) davis/L POC ABG O2 Sat (90-95) % VBG pH 7.27 L (7.36-7.41) VBG pCO2 63 H (38-50) mmHg VBG pO2 57 mmHg VBG HCO3 29 mmol/L VBG O2 Saturation 90.1 % VBG Base Excess 0.5 mEq/L POC Sodium (135-144) mmol/L Sodium 138 (136-145) mmol/L POC Potassium (3.3-5.0) mmol/L Potassium 4.3 (3.5-5.1) mmol/L Chloride 106 (98-107) mmol/L Carbon Dioxide 26 (21-32) mmol/L Anion Gap 6 (3-11) BUN 43 H (6-23) mg/dl Creatinine 1.66 H (0.6-1.2) mg/dl Est Cr Clr Drug Dosing 52.8 ml/min Est GFR ( Amer) 36.6 ml/min Est GFR (Non-Af Amer) 31.6 ml/min BUN/Creatinine Ratio 25.9 H (10-20) Glucose 158 H (70-99(Fasting)) mg/dl POC Glucose 142 H 176 H (70-99) mg/dl Estimat Average Glucose Pending Hemoglobin A1c Pending Calcium 9.1 (8.6-10.3) mg/dl Total Bilirubin 0.3 (0.2-1.0) mg/dl AST 22 (13-39) U/L ALT 34 (7-52) U/L Alkaline Phosphatase 110 H (34-104) U/L Total Protein 7.4 (6.0-8.3) gm/dl Albumin 3.4 (3.4-5.0) gm/dl Globulin 4.0 (2.5-4.0) gm/dl Albumin/Globulin Ratio 0.9 (0.9-2) TSH Pending 06/13/24 06/13/24 06/13/24 Range/Units 11:40 07:16 04:26 WBC (4.8-10.8) K/ul RBC (4.20-5.40) M/uL Hgb (12.0-16.0) g/dl POC Hgb 12.2 (12.0-16.0) g/dl Hct (37.0-47.0) % POC Hct 36 L (37-47) % MCV (80.0-100.0) fL MCH (25.0-34.0) pg MCHC (32.0-36.0) g/dL RDW Std Deviation (36.4-46.3) fL RDW Coeff of Amee (11.5-14.5) % Plt Count (130-400) K/uL MPV (9.4-12.4) fL Immature Gran % (Auto) % Neut % (Auto) % Lymph % (Auto) % [place] % (Auto) % Eos % (Auto) % Baso % (Auto) % Neut # (Auto) (1.40-6.50) K/uL Lymph # (Auto) (1.20-3.40) K/uL [place] # (Auto) (0.11-0.59) K/uL Eos # (Auto) (0.00-0.50) K/uL Baso # (Auto) (0.00-0.20) K/uL Immature Gran # (Auto) (0.01-0.20) K/uL POC pH 7.23 L (7.35-7.45) POC pCO2 57 H (35-46) mmHg POC pO2 89 (80-95) mmHg POC HCO3 24 (19-24) davis/L POC Total CO2 26 (24-31) mmol/L POC Base Excess -3.0 (-9-1.8) davis/L POC ABG O2 Sat 95.0 (90-95) % VBG pH (7.36-7.41) VBG pCO2 (38-50) mmHg VBG pO2 mmHg VBG HCO3 mmol/L VBG O2 Saturation % VBG Base Excess mEq/L POC Sodium 139 (135-144) mmol/L Sodium (136-145) mmol/L POC Potassium 4.5 (3.3-5.0) mmol/L Potassium (3.5-5.1) mmol/L Chloride (98-107) mmol/L Carbon Dioxide (21-32) mmol/L Anion Gap (3-11) BUN (6-23) mg/dl Creatinine (0.6-1.2) mg/dl Est Cr Clr Drug Dosing ml/min Est GFR ( Amer) ml/min Est GFR (Non-Af Amer) ml/min BUN/Creatinine Ratio (10-20) Glucose (70-99(Fasting)) mg/dl POC Glucose 166 H 133 H (70-99) mg/dl Estimat Average Glucose Hemoglobin A1c Calcium (8.6-10.3) mg/dl Total Bilirubin (0.2-1.0) mg/dl AST (13-39) U/L ALT (7-52) U/L Alkaline Phosphatase (34-104) U/L Total Protein (6.0-8.3) gm/dl Albumin (3.4-5.0) gm/dl Globulin (2.5-4.0) gm/dl Albumin/Globulin Ratio (0.9-2) TSH (8) HTN (hypertension) Hypertension type: primary hypertension Qualified Code(s): I10 - Essential (primary) hypertension"
[2024-06-14 07:27] LABS: Thyroid Stimulating Hormone 2.725 uIu/ml (0.300-4.500)
[2024-06-14] MEDS: ALBUT/IPRATROP 3MG/0.5MG NEB 3 ML VIAL NEB PRN (07:43)
[2024-06-14 07:52] LABS: Estimated Average Glucose 157 mg/dl; Hemoglobin A1C 7.1 % (4.5-5.6)
[2024-06-14] MEDS ORDERED: MICONAZOLE NITRATE POWDER 85 GM EXT PRN (15:11)
[2024-06-15 06:34] LABS: Basophils # (auto) 0.04 K/uL (0.00-0.20); Basophils % (auto) 0.5 %; Eosinophils # (auto) 0.32 K/uL (0.00-0.50); Eosinophils % (auto) 3.8 %; Hematocrit (blood only) 38.4 % (37.0-47.0); Hemoglobin 10.9 g/dl (12.0-16.0); Immature Granulocytes # (auto) 0.09 K/uL (0.01-0.20); Immature Granulocytes % (auto) 1.1 %; Lymphocytes # (auto) 1.34 K/uL (1.20-3.40); Lymphocytes % (auto) 15.8 %; Mean Corpuscular Hemoglobin 27.3 pg (25.0-34.0); Mean Corpuscular Hgb Conc 28.4 g/dL (32.0-36.0); Mean Corpuscular Volume 96.2 fL (80.0-100.0); Mean Platelet Volume 9.5 fL (9.4-12.4); Monocytes # (auto) 0.76 K/uL (0.11-0.59); Monocytes % (auto) 8.9 %; Neutrophils # (auto) 5.95 K/uL (1.40-6.50); Neutrophils % (auto) 69.9 %; Platelet Count 238 K/uL (130-400); RDW Coefficient of Variation 15.5 % (11.5-14.5); RDW Standard Deviation 54.5 fL (36.4-46.3); Red Blood Count 3.99 M/uL (4.20-5.40)
[2024-06-15 06:50] LABS: Albumin Globulin Ratio 0.9 (0.9-2); Albumin Level 3.4 gm/dl (3.4-5.0); BUN Creatinine Ratio 25.9 (10-20); Bilirubin,Total 0.3 mg/dl (0.2-1.0); Calcium 8.9 mg/dl (8.6-10.3); Creatinine Clr Calc Pharmacy 61.2 ml/min; Est GFR (African American) 43.8 ml/min; Est GFR (Non-African American) 37.8 ml/min; Globulin 3.7 gm/dl (2.5-4.0); Potassium 4.4 mmol/L (3.5-5.1); Total Protein 7.1 gm/dl (6.0-8.3)
--- NOTE | 2024-06-15 06:56 | Discharge Summary ---
Date of Service June 15, 2024 Admission HPI Per Admitting Provider Whit Connelly is a 68 year-old female with medical history of tracheostomy dependent chronic hypoxic respiratory failure, RASHAAD, OHS as well as cor pulmonale with diastolic heart failure, COPD and IDDM presenting from home with concern for increased shortness of breath. Patient was brought to the emergency department, history was obtained from patient herself although somewhat limited due to somnolence during encounter. Patient states she has been having a hard time breathing for the past two days, she also endorses a decreased appetite and poor fluid intake over the same period. She denies any abdominal pain, na usea/vomiting/diarrhea, denies any changes in urination or bowel movements. While in the ED, patient was found to be hypoglycemic. EKG completed and continuous heart monitor was applied. ABG completed which was acidotic. Discussed with respiratory therapy options for respiratory support as it is listed that she uses a AVAPS machine at night. Respiratory therapy confirms that BiPAP is unable to be used with her trach and during her last admission (02/02- 03/02/24) she did not utilize any machine as we do not have any device that would adequately ventilate with her trach. Patient confirms that she is full code status. ED Course: -Albuterol treatment -Methylpred 60mg IV -Dextrose 25mL -Chest XR, EKG, ABG, CBC, CMP, BNP Principal Diagnosis Shortness of breath exacerbation due to viral illness Discharge Exam Constitutional + ill appearing, + morbidly obese and + lethargic Eyes + anicteric sclerae; no conjunctival abnormality ENMT Ears: no external ear abnormality Nose: no external nose abnormality Respiratory Auscultation: + wheezes ([place] bilaterally with expiration) Cardiovascular Rate/Rhythm: regular rate and regular rhythm Extremities: no edema Gastrointestinal (Abdomen) Inspection/Auscultation: abdomen not distended Percussion/Palpation: abdomen soft; abdomen nontender and no guarding Skin Groin area skin is rubrous, irritated and appears chapped with small fissures that bleed. Discharge Data Allergies Allergy/AdvReac Type Severity Reaction Status Date / Time animal dander Allergy Intermediate Sneezing, Unverified 06/13/24 18:13 itchy watery eyes and Difficulty Breathing Penicillins Allergy Intermediate Hives Verified 06/13/24 17:56 tree and shrub pollen Allergy Intermediate Sneezing, Unverified 06/13/24 18:13 itchy watery eyes and Difficulty Breathing amitriptyline Allergy Unknown CAN'T Verified 06/13/24 17:56 REMEMBER doxycycline Allergy Unknown CAN'T Verified 06/13/24 17:56 REMEMBER guaifenesin Allergy Unknown CAN'T Verified 06/13/24 17:56 REMEMBER metformin Allergy Unknown CAN'T Verified 06/13/24 17:56 REMEMBER phenylephrine Allergy Unknown CAN'T Verified 06/13/24 17:56 REMEMBER pseudoephedrine Allergy Unknown CAN'T Verified 06/13/24 17:56 REMEMBER tetracycline Allergy Unknown CAN'T Verified 06/13/24 17:56 REMEMBER venlafaxine [From Effexor] Allergy Unknown CAN'T Verified 06/13/24 17:56 REMEMBER gabapentin AdvReac Intermediate BECOMES Verified 06/13/24 17:56 AGGRESSIVE Consultations 06/13/24 03:49 ED Decision to Admit Stat Hospital Course (1) Parainfluenza infection: (2) SOB (shortness of breath): (3) Skin ulcer of groin, limited to breakdown of skin: (4) Wheezing: (5) Hypoglycemia: (6) Morbid obesity with BMI of 60.0-69.9, adult: (7) Insulin-requiring or dependent type II diabetes mellitus: (8) HTN (hypertension): (9) Hypothyroidism: (10) Chronic kidney disease, stage 3b: (11) Physical deconditioning: (12) Tracheostomy in place: Plan 1. Parainfluenza Virus | Acute on Chronic Hypoxic Respiratory Failure - Shortness of breath with improvement but not at baseline. -Currently satting 94-100% on 5L via trach collar. - Continue Duoneb QID - Continue budesonide - Pt uses 5L O2 at night at home, she can continue recovery at home with O2 supplementation Hypoglycemia | Type 2 Diabetes Mellitus -Pt with blood glucose levels between 133 and 174 in the last 24 hrs -Pt is independent with use of insulin pump at home will resume upon discharge from hospital -Aspart for BSG Range: Low 110 mg/dL, High 160 mg/dL, Correction Factor: 35 mg/dL/unit Carbohydrate ratio = 15 g/unit -BSGs ACHS if eating, q6h Groin Skin breakdown/irritation -Pt's skin fold and genital area is red and demonstrates breakdown. She is able to tolerate hygiene after voiding. -Wound care nurse recommends antifungal powder applied daily to groin and under breasts to reduce skin breakdown and discomfort. CKD Stage G3b/A2 -Cr remains in range of baseline on 1.4 to 1.8 -Avoid nephrotoxic meds Chronic Diastolic Heart Failure -BNP normal on admission -Continue home dosages of bumex, spironolactone Chronic Pain -Continue oxycodone 5mg BID per home regimen VTE Prophylaxis - Heparin until hospital discharge Total Time Total Time Spent Total Time Spent (In Minutes): Refer to attending physician attestation Discharge Plan Discharge Items Patient Disposition: Home - Home Health Services Reason For Visit: SHORTNESS OF BREATH Discharge Diagnosis: Parainfluenza viral illness Condition on Discharge: Serious Activity: Resume your previous activity Non-emergency contact: Primary Care Provider Call non-emergency contact if: your symptoms worsen and your temperature is above 101 Follow-up/Referrals: Ofe Mcgee MD [Primary Care Provider] - 06/21/24 2:45 pm (Hospital follow up scheduled June 21 at 2:[address] Grey) Diet: Carb Consistent or DM2 Addtl Attending Provider Instructions: 1. Parainfluenza Virus | Acute on Chronic Hypoxic Respiratory Failure -Ongoing shortness of breath, audible wheezing -Currently satting 94-100% on 5L via trach collar. - Continue Duoneb QID - Continue budesonide - Pt uses 5L O2 at night at home, she can continue recovery at home with O2 supplementation Hypoglycemia | Type 2 Diabetes Mellitus -Pt with blood glucose levels between 133 and 174 in the last 24 hrs -Pt is independent with use of insulin pump. Instructed to restart upon returning home from hospital -stopped Aspart for BSG Range: Low 110 mg/dL, High 160 mg/dL, Correction Factor: 35 mg/dL/unit Carbohydrate ratio = 15 g/unit -BSGs ACHS if eating, q6h Groin Skin breakdown/irritation -Pt's skin fold and genital area is red and demonstrates breakdown. She is able to tolerate hygiene after voiding. -Wound care nurse recommends antifungal powder applied daily to groin and under breasts to reduce skin breakdown and discomfort. CKD Stage G3b/A2 -Cr remains in range of baseline on 1.4 to 1.8 -Avoid nephrotoxic meds Chronic Diastolic Heart Failure -BNP normal on admission -Continue home bumex, spironolactone Chronic Pain -Continue oxycodone 5mg BID per home regimen Addtl User Experience Analyst Provider Instructions: Use Desenex powder at groin and under both breasts daily for skin irritation and prevention of skin breakdown Pending Studies at Discharge: No Stand-Alone Forms: [facility], Smoking Cessation Medications and DC Order Prescriptions: New miconazole nitrate [Desenex] 2 % powder 1 applic topical DAILY Qty: 85 0RF Rx Instructions: Apply powder to groin and under breasts daily Continued (DME) blood-glucose meter [OneTouch Ultra2 Meter] [facility] See Rx Instructions .Route Qty: 1 0RF Rx Instructions: As directed Jardiance 10 mg tablet 10 mg PO DAILY Qty: 30 5RF Rx Instructions: Take one tablet daily by mouth. (DME) nebulizers [facility] [place] See Rx Instructions .Route Qty: 1 0RF Rx Instructions: As directed (DME) OneTouch Ultra Test Strip See Rx Instructions .Route Qty: 400 3RF Rx Instructions: As directed four times per day to monitor blood glucose (DME) pen needle, diabetic [BD Kaitlin 2nd Gen Pen Needle] 32 gauge x 5/32" needle See Rx Instructions miscellaneous .MEDSUPPLY Qty: 50 0RF Rx Instructions: As directed (DME) pen needle, diabetic [BD Kaitlin 2nd Gen Pen Needle] 32 gauge x 5/32" needle See Rx Instructions miscellaneous .MEDSUPPLY Qty: 150 5RF Rx Instructions: change new pen 5x a day ipratropium-albuterol 0.5 mg-3 mg(2.5 mg base)/3 mL solution for nebulization 3 ml INHALATION Q4H PRN (Reason: COUGHING, WHEEZING, SHORTNESS OF BREATH) Qty: 180 4RF insulin aspart U-100 [Novolog U-100 Insulin aspart] 100 unit/mL solution See Rx Instructions subcut DAILY Qty: 100 4RF Rx Instructions: For insulin pump 300 units a day. multivitamin Tablet 1 tab PO QAM Qty: 30 1RF atorvastatin 40 mg tablet 40 mg PO QPM Qty: 30 1RF aspirin [Robert Low Dose Aspirin] 81 mg Tablet,Delayed Release (Dr/Ec) 81 mg PO QAM Qty: 30 1RF spironolactone 25 mg Tablet 25 mg PO QAM Qty: 30 1RF pantoprazole 40 mg Tablet,Delayed Release (Dr/Ec) 40 mg PO DAILYBB Qty: 30 1RF nitroglycerin 0.4 mg tablet, sublingual 0.4 mg SL DIRECTED PRN (Reason: Chest Pain) Qty: 25 0RF folic acid 1 mg Tablet 1 mg PO QAM Qty: 30 1RF sertraline 50 mg Tablet 50 mg PO QAM Qty: 30 1RF magnesium oxide 400 mg magnesium Tablet 400 mg PO QAM Qty: 30 1RF diclofenac sodium [Voltaren Arthritis Pain] 1 % gel 4 g EXT QID PRN (Reason: Pain) naloxone [Narcan] 4 mg/actuation spray,non-aerosol 4 mg INTRANASAL DIRECTED PRN (Reason: OVERDOSE) bupropion HCl 100 mg tablet sustained-release 12 hr See Rx Instructions .ROUTE .COMPLEX Rx Instructions: Take 100mg by mouth in the morning and 200mg by mouth at bedtime potassium chloride 20 mEq tablet extended release 20 meq PO BID diclofenac sodium 75 mg Tablet,Delayed Release (Dr/Ec) 75 mg PO BID Qty: 60 0RF famotidine 20 mg Tablet 20 mg PO DAILY PRN (Reason: heartburn) Qty: 30 0RF budesonide 0.5 mg/2 mL Suspension For Nebulization 0.5 mg NEB BIDR Qty: 120 0RF oxycodone 5 mg Tablet 5 mg PO BID PRN (Reason: moderate-severe pain) Qty: 60 0RF Combivent Respimat 20-100 mcg/actuation mist 1 puff INHALATION QID PRN (Reason: shortness of breath) Qty: 4 3RF Rx Instructions: space evenly during waking hours torsemide 20 mg tablet 40 mg PO QPM Rx Instructions: Pt takes at 3:00pm levothyroxine 25 mcg tablet See Rx Instructions .ROUTE .COMPLEX Rx Instructions: Take 25mcg w/ 200mcg by mouth to equal 225mcg every morning. isosorbide mononitrate 60 mg tablet extended release 24 hr 60 mg PO QAM furosemide 80 mg tablet 80 mg PO QAM levothyroxine 200 mcg tablet See Rx Instructions .ROUTE .COMPLEX Rx Instructions: Take 200mcg w/ 25mcg by mouth to equal 225mcg every morning. topiramate 100 mg tablet See Rx Instructions .ROUTE .COMPLEX Rx Instructions: Take 100mg by mouth in the morning and 200mg by mouth at bedtime metoprolol tartrate 25 mg tablet 25 mg PO BID Discontinued formoterol fumarate [Perforomist] 20 mcg/2 mL Solution For Nebulization 20 mcg inhalation BIDR Qty: 120 0RF Discharge Orders: Discharge Order (Routine); Ordered 06/15/24 Ordered By: Kaylynn eDlgado/Other Patient Handouts: Obesity Specialist, Managing Type 2 Diabetes, Risk Factors for Heart Disease, Weight Loss, Prevention Guide Women 65 Plus Admission Data Admit Date/Time: 06/13/24 04:53 Attending Provider: Ofe Mcgee Admit Provider: Anyi Dumont Primary Care Provider: Ofe Mcgee Other Providers: Dena Red; [place],Home [facility]; [facility] Other Interventions: Discharge Summary Assessment (RN) Last Done: 06/15/24 13:17 Supervising Physician Co-Signing Physician Notes Attending Physician Supervision Note: I independently interviewed and examined the patient and verified the pappas history and physical, reviewed labs and image studies and agree with findings and care plan noted above. Assessment/Plan Parainfluenza virus - supportive care. ABG with acute on chronic respiratory acidosis - patient is to use AVAPS machine at home qHS and with naps. -Received Oxygenation via Trach collar. With improvement in her breathing - To continue supportive care and oxygenation at home. -Case management and family confirmed oxygen needs arranged at home. Hypoglycemia/DM - On insulin pump at home - held during hospital stay. Resumed on discharge. Groin skin breakdown - wound nurse consult placed. Recommended local antifungal powder use. Rx sent.
== END 2024-06-15 14:11 | disposition home health service (06) | DRG 865 ==
LOC: SUATTDRO → ED 01:54 → 4W 04:53 → SUATTDRO 04:53 → 4W 05:43

== ENCOUNTER 2024-09-14 13:16 | Inpatient (IN) ==
--- NOTE | 2024-09-14 13:26 | Emergency Department Note ---
Impression & Plan Acute respiratory failure with hypoxia, Congestive heart failure, COPD with acute exacerbation ED Provider Note NAME: ANN JACKSON AGE: 69 SEX: F : 1955 ARRIVES VIA: Ambulance INFORMANT: Patient, ED PROVIDER(S): Darrell Richardson MD CHIEF COMPLAINT: Shortness of breath MEDICAL DECISION MAKING: Patient presents due to concern for worsening shortness of breath. IV was established and blood work was obtained. Patient's weight is up from prior. Patient with a normal white count with mild anemia hemoglobin 11.6 with a normal platelet count. Initial VBG with a pCO2 of 81. The patient has a Christophe trach unable to place on BiPAP at this time after discussion with respiratory therapist. The patient is awake alert and does follow commands. Patient's kidney function creatinine 1.37. Potassium of 5. BNP is elevated troponin negative. Chest x-ray does not show any acute disease. Patient was ordered a dose of IV diuretic. Patient did initially receive methylprednisolone and nebulizer treatment. After further discussion with the patient I did speak with the on-call hospitalist and the patient was admitted to the medicine service. Patient typically does not wear oxygen during the day currently on 2 L trach collar. Critical Care: I have personally spent 40 minutes of critical care time in direct management of this patient. This includes bedside care, interpretation of diagnostic studies, and testing, discussion with consultants, patient, and family members, and other require inpatient management activities. This 40 minutes is in excess of all separately billable procedures. Discussion w/ other healthcare providers: Dr. Smiley inpatient medicine service Prior /Outside records reviewed: I reviewed part of a discharge summary from Kaylynn Chau from June 15, 2024. Known history of tracheostomy dependent chronic hypoxic respiratory failure RASHAAD OHS with cor pulmonale diastolic heart failure COPD and insulin-dependent diabetes who presented to concern for increasing shortness of breath. Patient was admitted at that time and did receive treatments. Differential diagnosis: Reactive airway disease, pneumonia, pneumothorax, COPD, CHF, ACS, pulmonary embolism, musculoskeletal, GERD as well as other pathologies were considered. Diagnostics, as interpreted by me: ECG:Sinus first-degree AV block PVCs noted, rate of [address] wide QRS right bundle branch block pattern. No obvious STEMI. Cardiac monitoring: An order was placed for continuous cardiac monitoring. The monitor shows a rate of 72 with sinus rhythm. Patient was placed on pulse oximetry Medical decision rules: None Imaging studies: I informally interpreted the patient's chest x-ray does not show any acute changes with formal report to follow. HPI: Patient presents due to concern for worsening shortness of breath. The patient states that she was having difficulty getting out of her lift chair and was unable to do so. Patient does have a known history of heart failure and is compliant with her medications. The patient does not feel as though she has any increase in leg swelling. The patient does feel shortness of breath that baseline. Patient does have occasional cough but it is nonproductive. No falls or trauma. Patient typically does wear 8 L of oxygen at nighttime. Patient states that she does not typically wear oxygen during the day. PAST MEDICAL HISTORY: See Below PAST SURGICAL HISTORY: See Below SOCIAL HISTORY: See Below HOME MEDICATIONS: See Below ALLERGIES: See Below VITALS: See Below PHYSICAL EXAMINATION: GENERAL: NAD, non-toxic. EYE EXAM: Normal conjunctiva. PERRL, no anisocoria and EOM's grossly intact w/o pain. OROPHARYNX: Moist mucus membranes, grossly normal dentition. NECK: Trachea midline, no stridor. Supple, no nuchal rigidity, no adenopathy, non-tender. No signs of meningismus. FROM of the neck with good chin to chest and neck extension. LUNGS: Clear to auscultation. Normal chest wall mechanics. HEART: NSR, no MRG. ABDOMEN: Abdomen soft, non-tender, no masses, no rebound or guarding. BACK: No CVA TTP. SKIN: No rashes and no bruising. UPPER EXTREMITIES: Upper extremities are grossly normal. LOWER EXTREMITIES: Grossly normal, no edema. NEURO EXAM: A&O x3, cranial nerves II-XII grossly intact, normal speech, moves all 4 extremities. Past Med/Surg History Problem List (Updated 09/17/24 @ 12:13 by Darrell Richardson MD) Congestive heart failure (Acute) New onset atrial flutter COPD with acute exacerbation (Acute) Acute diastolic (congestive) heart failure Acute respiratory failure with hypoxia (Acute) Diabetic retinopathy associated with type 2 diabetes mellitus Skin ulcer of groin, limited to breakdown of skin Parainfluenza infection (Acute) Wheezing (Acute) SOB (shortness of breath) (Acute) Morbid obesity with BMI of 60.0-69.9, adult Insulin-requiring or dependent type II diabetes mellitus Hypothyroidism HTN (hypertension) Physical deconditioning Chronic kidney disease, stage 3 Dyslipidemia, goal LDL below 70 HTN, goal below 130/80 Chronic pain Iron deficiency Chronic hypoxic respiratory failure Diabetic nephropathy Seborrhea Back pain Open wound Lesion of left [place] kidney Ambulatory dysfunction Anemia Left knee pain Pain and swelling of right lower extremity (Acute) Pain and swelling of left lower extremity (Acute) Common migraine without aura (Acute) Hypersomnia with sleep apnea (Acute) Memory loss (Acute) Myoclonus (Acute) Tracheobronchitis (Acute) Palpitations Dyslipidemia (Chronic) MRSA (methicillin resistant staph aureus) culture positive (Chronic) "sputum 11/2015" History of hysterectomy (Chronic) Right ventricular dysfunction (Chronic) Medical History Hypoglycemia Tracheostomy in place Chronic kidney disease, stage 3b C. difficile diarrhea Acute gout Wound, breast Type 2 diabetes mellitus Right bundle branch block Presence of tracheostomy Morbid obesity Weakness Cor pulmonale CHF (congestive heart failure) Chronic diastolic heart failure cor pulmonale Chronic obstructive pulmonary disease Obesity hypoventilation syndrome Generalized weakness Fracture of distal end of right femur Hypothyroidism (acquired) Ureterolithiasis Vitamin D deficiency Adjustment disorder with depressed mood Tinea unguium GERD (gastroesophageal reflux disease) Anxiety Coronary artery disease RASHAAD (obstructive sleep apnea) Sepsis Surgical History History of tonsillectomy and adenoidectomy History of cholecystectomy History of appendectomy Family History Mother Coronary heart disease COPD (chronic obstructive pulmonary disease) Father Suicide Hung himself. Pt found him. Unknown Lung cancer Social History Smoking Status: Former smoker Tobacco Type: Cigarettes Second Hand Exposure: No; Do You Dip or Chew Tobacco: No; Tobacco Cessation Education Requested by Patient: No Hx Alcohol Use: No Hx Substance Use: No Preferred Language: Sami Communication Ability: Effective Visual Impairment: Limited Hearing Ability: Normal Hvac Estimator Required: No Beliefs That Will Affect Care: None marital status: Current Living Situation: Other Current Living Situation Comment: daughter current occupational status: disabled How many Children do You have: 1 Other Information That Helps Us Care for You: No Feels Safe at Home: Yes Safety Concerns: Feels Safe At This Time Diet: regular Diet Comment: Drinks 1 Boost drink supplement in the morning caffeine: Yes (1 coffee daily) Physical Activity Frequency: Does not Exercise Seatbelt Use: always Do you think of yourself as: straight/heterosexual Gender Identity: Female Assistive Devices: Glasses, Oxygen - Continuous and Other Assistive Devices Comment: Insulin pump Allergies Allergies Allergy/AdvReac Type Severity Reaction Status Date / Time animal dander Allergy Intermediate Sneezing, Unverified 08/13/24 11:43 itchy watery eyes and Difficulty Breathing Penicillins Allergy Intermediate Hives Verified 08/13/24 11:43 tree and shrub pollen Allergy Intermediate Sneezing, Unverified 08/13/24 11:43 itchy watery eyes and Difficulty Breathing amitriptyline Allergy Unknown CAN'T Verified 08/13/24 11:43 REMEMBER doxycycline Allergy Unknown CAN'T Verified 08/13/24 11:43 REMEMBER guaifenesin Allergy Unknown CAN'T Verified 08/13/24 11:43 REMEMBER metformin Allergy Unknown CAN'T Verified 08/13/24 11:43 REMEMBER phenylephrine Allergy Unknown CAN'T Verified 08/13/24 11:43 REMEMBER pseudoephedrine Allergy Unknown CAN'T Verified 08/13/24 11:43 REMEMBER tetracycline Allergy Unknown CAN'T Verified 08/13/24 11:43 REMEMBER venlafaxine [From Effexor] Allergy Unknown CAN'T Verified 08/13/24 11:43 REMEMBER gabapentin AdvReac Intermediate BECOMES Verified 08/13/24 11:43 AGGRESSIVE Home Meds Home Medications Medication Instructions Recorded Confirmed diclofenac sodium 1 % topical gel 4 g EXT QID PRN Pain 01/15/24 09/14/24 (Voltaren Arthritis Pain) naloxone 4 mg/actuation nasal 4 mg intranasal DIRECTED PRN 01/15/24 09/14/24 spray (Narcan) OVERDOSE bupropion HCl 100 mg tablet,12 hr 100 mg PO UD 02/03/24 09/14/24 sustained-release potassium chloride 20 mEq 20 meq PO BID 02/03/24 09/14/24 tablet,extended release furosemide 80 mg tablet 80 mg PO QAM 06/13/24 09/14/24 isosorbide mononitrate 60 mg 60 mg PO QAM 06/13/24 09/14/24 tablet,extended release 24 hr levothyroxine 200 mcg tablet 200 mcg PO UD 06/13/24 09/14/24 levothyroxine 25 mcg tablet 25 mcg PO UD 06/13/24 09/14/24 metoprolol tartrate 25 mg tablet 25 mg PO BID 06/13/24 09/14/24 topiramate 100 mg tablet 100 mg PO UD 06/13/24 09/14/24 torsemide 20 mg tablet 40 mg PO QPM 06/13/24 09/14/24 empagliflozin 10 mg tablet 10 mg PO UD 09/14/24 09/14/24 (Jardiance) oxycodone 10 mg tablet 10 mg PO DIRECTED PRN Pain 09/14/24 09/14/24 Previous Rx's Medication Instructions Recorded aspirin 81 mg tablet,delayed 81 mg PO QAM #30 tabs 04/06/23 release (Robert Low Dose Aspirin) atorvastatin 40 mg tablet 40 mg PO QPM #30 tabs 04/06/23 folic acid 1 mg tablet 1 mg PO QAM #30 tabs 04/06/23 magnesium oxide 400 mg PO QAM #30 tabs 04/06/23 multivitamin 1 tab PO QAM #30 tabs 04/06/23 nitroglycerin 0.4 mg sublingual 0.4 mg sublingual DIRECTED PRN 04/06/23 tablet Chest Pain #25 tabs pantoprazole 40 mg tablet,delayed 40 mg PO DAILYBB #30 tabs 04/06/23 release sertraline 50 mg tablet 50 mg PO QAM #30 tabs 04/06/23 spironolactone 25 mg tablet 25 mg PO QAM #30 tabs 04/06/23 blood-glucose meter (OneTouch #1 ea 07/21/23 Ultra2 Meter) pen needle, diabetic 32 gauge x #150 ea 08/26/23" (BD Kaitlin 2nd Gen Pen Needle) pen needle, diabetic 32 gauge x #50 ea 08/26/23" (BD Kaitlin 2nd Gen Pen Needle) nebulizers #1 ea 11/16/23 ipratropium 0.5 mg-albuterol 3 mg 3 ml inhalation Q4H PRN COUGHING, 11/25/23 (2.5 mg base)/3 mL nebulization WHEEZING, SHORTNESS OF BREATH #180 soln mL budesonide 0.5 mg/2 mL suspension 0.5 mg (2 mL) NEB BIDR #120 mL 03/02/24 for nebulization diclofenac sodium 75 mg 75 mg PO BID #60 tabs 03/02/24 tablet,delayed release famotidine 20 mg tablet 20 mg PO DAILY PRN heartburn #30 03/02/24 tabs ipratropium 20 mcg-albuterol 100 1 puff inhalation QID PRN 03/02/24 mcg/actuation mist for inhalation shortness of breath #4 grams (Combivent Respimat) miconazole nitrate 2 % topical 1 applic topical DAILY Skin 06/15/24 powder (Desenex) irritation #85 grams insulin aspart U-100 100 unit/mL See Rx Instructions subcut DAILY 08/21/24 subcutaneous solution (Novolog #100 mL U-100 Insulin aspart) blood sugar diagnostic (BringrsTouch #400 ea 08/27/24 Ultra Test strips) Results & Data (ED) Vital Signs Vital Signs - 24 hr 09/14/24 13:06 09/14/24 13:24 09/14/24 13:24 Temperature 36.7 C Temperature Source Oral Pulse Rate 73 Pulse Rate [Apical] Respiratory Rate 18 16 Respiratory Effort / Characteristics Blood Pressure 112/52 L Blood Pressure Mean 72 Pulse Oximetry 97 Oxygen Delivery Method Nasal Cannula Nasal Cannula Oxygen Flow Rate 2 2 Sepsis Recent Fever Within 48 Hours No Sepsis New/Unexplained Change in Mental Status N/A Sepsis Action Taken by Nursing No Action Required 09/14/24 13:25 09/14/24 13:33 09/14/24 13:57 Temperature Temperature Source Pulse Rate 75 Pulse Rate [Apical] 65 Respiratory Rate 22 Respiratory Effort / Characteristics Spontaneous Blood Pressure Blood Pressure Mean Pulse Oximetry 98 96 Oxygen Delivery Method Trach Collar Trach Collar Oxygen Flow Rate 2 2 Sepsis Recent Fever Within 48 Hours Sepsis New/Unexplained Change in Mental Status Sepsis Action Taken by [facility] Care Medications Current Medication List: was personally reviewed by me Laboratory Data Attestation: I reviewed the patient's lab results. 09/17/24 05:54 09/17/24 05:54 Lab Results 09/14/24 09/14/24 09/14/24 Range/Units 13:28 14:03 14:06 WBC 9.32 (4.8-10.8) K/ul RBC 4.31 (4.20-5.40) M/uL Hgb 11.6 L (12.0-16.0) g/dl POC Hgb 13.9 (12.0-16.0) g/dl Hct 41.2 (37.0-47.0) % POC Hct 41 (37-47) % MCV 95.6 (80.0-100.0) fL MCH 26.9 (25.0-34.0) pg MCHC 28.2 L (32.0-36.0) g/dL RDW Std Deviation 56.4 H (36.4-46.3) fL RDW Coeff of Amee 16.0 H (11.5-14.5) % Plt Count 270 (130-400) K/uL MPV 9.9 (9.4-12.4) fL Immature Gran % (Auto) 0.5 % Neut % (Auto) 77.8 % Lymph % (Auto) 11.5 % Hamilton % (Auto) 7.4 % Eos % (Auto) 2.4 % Baso % (Auto) 0.4 % Neut # (Auto) 7.25 H (1.40-6.50) K/uL Lymph # (Auto) 1.07 L (1.20-3.40) K/uL Hamilton # (Auto) 0.69 H (0.11-0.59) K/uL Eos # (Auto) 0.22 (0.00-0.50) K/uL Baso # (Auto) 0.04 (0.00-0.20) K/uL Immature Gran # (Auto) 0.05 (0.01-0.20) K/uL VBG pH 7.21 L (7.36-7.41) VBG pCO2 81 H (38-50) mmHg VBG pO2 32 mmHg VBG HCO3 32 mmol/L VBG O2 Saturation < 60.0 % VBG Base Excess 2.4 mEq/L POC Sodium 140 (135-144) mmol/L Sodium 136 (136-145) mmol/L POC Potassium 4.9 (3.3-5.0) mmol/L Potassium 5.0 (3.5-5.1) mmol/L POC Chloride 103 (101-112) mmol/L Chloride 104 (98-107) mmol/L Carbon Dioxide 30 (21-32) mmol/L POC Total CO2 27 (24-31) mmol/L Anion Gap 2 L (3-11) POC Anion Gap 16.0 (16-25) mmol/L POC BUN 25 H (7-18) mg/dl BUN 24 H (6-23) mg/dl Creatinine 1.37 H (0.6-1.2) mg/dl POC Creatinine 1.5 H (0.6-1.3) mg/dl Est Cr Clr Drug Dosing 63.4 ml/min eGFR 42.06 BUN/Creatinine Ratio 17.5 (10-20) Glucose 173 H (70-99(Fasting)) mg/dl POC Glucose (other) 159 H (70-99) mg/dl Calcium 8.9 (8.6-10.3) mg/dl POC Ioniz Calcium Enedelia 1.20 (1.12-1.32) mmol/l Total Bilirubin 0.4 (0.2-1.0) mg/dl AST 21 (13-39) U/L ALT 16 (7-52) U/L Alkaline Phosphatase 90 (34-104) U/L Troponin I High Sens 8.5 (0-14) pg/ml B-Natriuretic Peptide 135 H (0-100) pg/ml Total Protein 7.7 (6.0-8.3) gm/dl Albumin 3.4 (3.4-5.0) gm/dl Globulin 4.3 H (2.5-4.0) gm/dl Albumin/Globulin Ratio 0.8 L (0.9-2) Administered Medications Albuterol (Albut/Ipratrop 3mg/0.5mg Neb 3 Ml Vial) 3 ml INH Q6R [facility] Stop: 10/14/24 18:59 Last Admin: 09/17/24 07:13 Dose: 3 ml Documented By: Admin: 09/17/24 01:11 Dose: 3 ml Documented By: Admin: 09/16/24 20:07 Dose: 3 ml Documented By: Admin: 09/16/24 12:44 Dose: 3 ml Documented By: Admin: 09/16/24 07:43 Dose: 3 ml Documented By: Admin: 09/16/24 00:56 Dose: 3 ml Documented By: Admin: 09/15/24 19:37 Dose: 3 ml Documented By: Admin: 09/15/24 12:50 Dose: 3 ml Documented By: Admin: 09/15/24 08:02 Dose: 3 ml Documented By: Admin: 09/15/24 00:42 Dose: 3 ml Documented By: KYKristian Admin: 09/14/24 19:57 Dose: 3 ml Documented By: ROSAMARIA Apixaban (Apixaban 5 Mg Tablet) 5 mg PO BID [facility] Stop: 10/16/24 20:59 Last Admin: 09/17/24 09:46 Dose: 5 mg Documented By: Admin: 09/16/24 20:29 Dose: 5 mg Documented By: DOM Aspirin (Aspirin 81 Mg Ectab) [facility] [place] Stop: 10/15/24 08:59 Last Admin: 09/17/24 09:50 Dose: 81 mg Documented By: Admin: 09/16/24 10:08 Dose: 81 mg Documented By: Admin: 09/15/24 10:16 Dose: 81 mg Documented By: YAMILKA Atorvastatin Calcium (Atorvastatin 40 Mg Tab) 40 mg PO QPM [facility] Stop: 10/14/24 20:59 Last Admin: 09/16/24 20:34 Dose: 40 mg Documented By: Admin: 09/15/24 19:41 Dose: 40 mg Documented By: Admin: 09/14/24 20:23 Dose: 40 mg Documented By: CHRIS Azithromycin (Azithromycin 250 Mg Tab) 250 mg PO QAM [facility] Stop: 09/18/24 09:01 Last Admin: 09/17/24 09:49 Dose: 250 mg Documented By: AbbyO Admin: 09/16/24 10:09 Dose: 250 mg Documented By: Admin: 09/15/24 10:18 Dose: 250 mg Documented By: YAMILKA Budesonide (Budesonide 0.5 Mg/2 Ml Vial (Pulmicort)) 0.5 mg NEB BIDR [facility] Stop: 10/14/24 18:59 Last Admin: 09/17/24 07:13 Dose: 0.5 mg Documented By: Admin: 09/16/24 20:08 Dose: 0.5 mg Documented By: Admin: 09/16/24 07:43 Dose: 0.5 mg Documented By: Admin: 09/15/24 19:36 Dose: 0.5 mg Documented By: Admin: 09/15/24 08:02 Dose: 0.5 mg Documented By: Admin: 09/14/24 19:57 Dose: 0.5 mg Documented By: ROSAMARIA Bupropion HCl (Bupropion Sr 100 Mg Tabcr) 100 mg PO DAILY@0900 [facility] Stop: 10/15/24 08:59 Last Admin: 09/17/24 09:48 Dose: 100 mg Documented By: Admin: 09/16/24 10:08 Dose: 100 mg Documented By: Admin: 09/15/24 10:18 Dose: 100 mg Documented By: YAMILKA Bupropion HCl (Bupropion Sr 100 Mg Tabcr) 200 mg PO HS [facility] Stop: 10/14/24 20:59 Last Admin: 09/16/24 20:34 Dose: 200 mg Documented By: Admin: 09/15/24 19:41 Dose: 200 mg Documented By: Admin: 09/14/24 20:22 Dose: 200 mg Documented By: CHRIS Empagliflozin (Empagliflozin 10 Mg Tab) 10 mg PO DAILY [facility] Stop: 10/15/24 08:59 Last Admin: 09/17/24 09:49 Dose: 10 mg Documented By: Admin: 09/16/24 10:10 Dose: 10 mg Documented By: Admin: 09/15/24 10:16 Dose: 10 mg Documented By: YAMILKA Famotidine (Famotidine 20 Mg Tab) 20 mg PO DAILY PRN PRN Reason: heartburn Stop: 10/14/24 18:52 Last Admin: 09/15/24 10:17 Dose: 20 mg Documented By: YAMILKA Folic Acid (Folic Acid 1 Mg Tab) 1 mg PO QAM [facility] Stop: 10/15/24 08:59 Last Admin: 09/17/24 09:48 Dose: 1 mg Documented By: Admin: 09/16/24 10:09 Dose: 1 mg Documented By: Admin: 09/15/24 10:17 Dose: 1 mg Documented By: YAMILKA Furosemide (Furosemide 40 Mg/4 Ml Vial) 40 mg IV DAILY [facility] Stop: 10/16/24 08:59 Last Admin: 09/17/24 09:45 Dose: 40 mg Documented By: Admin: 09/16/24 10:08 Dose: 40 mg Documented By: YAMILKA Methylprednisolone 40 mg/ (Syringe) 0.64 mls @ 1.5 mls/min IV BID [facility] Stop: 10/14/24 20:59 Last Admin: 09/17/24 09:51 Dose: 1.5 mls/min Documented By: Admin: 09/16/24 20:32 Dose: 1.5 mls/min Documented By: Admin: 09/16/24 12:02 Dose: 1.5 mls/min Documented By: Admin: 09/15/24 19:41 Dose: 1.5 mls/min Documented By: Admin: 09/15/24 10:15 Dose: 1.5 mls/min Documented By: Admin: 09/14/24 20:21 Dose: 1.5 mls/min Documented By: CHRIS Insulin Aspart (Insulin Aspart Per Unit Charge) 0 units SC ACHS [facility] Stop: 10/14/24 16:29 Last Admin: 09/17/24 08:07 Dose: 22 units Documented By: IVAN Co-signed By: ELDA Admin: 09/16/24 20:29 Dose: 2 units Documented By: DOM Co-signed By: RENNY Admin: 09/16/24 16:56 Dose: 15 units Documented By: YAMILKA Co-signed By: AM Admin: 09/16/24 12:02 Dose: 25 units Documented By: YAMILKA Co-signed By: AM Admin: 09/16/24 10:12 Dose: 20 units Documented By: MHN Co-signed By: AMS Admin: 09/15/24 19:44 Dose: 4 units Documented By: CHRIS Co-signed By: BIJAN Admin: 09/15/24 16:35 Dose: 27 units Documented By: CF Co-signed By: PATRICK Admin: 09/15/24 12:08 Dose: 27 units Documented By: YAMILKA Co-signed By: PATRICK Admin: 09/15/24 10:26 Dose: 22 units Documented By: YAMILKA Co-signed By: ADA Admin: 09/14/24 20:21 Dose: 4 units Documented By: CHRIS Co-signed By: RONN Admin: 09/14/24 19:07 Dose: Not Given Documented By: CHRIS Insulin Glargine (Lantus Per Unit Charge) 50 units SC QAM [facility] Stop: 10/15/24 08:59 Last Admin: 10/28/24 08:08 Dose: 50 units Documented By: IVAN Co-signed By: ELDA Admin: 09/16/24 10:12 Dose: 50 units Documented By: YAMILKA Co-signed By: PIETRO Admin: 09/15/24 10:27 Dose: 50 units Documented By: YAMILKA Co-signed By: ADA Insulin Glargine (Lantus Per Unit Charge) 0 units SC [facility]; Protocol Stop: 10/15/24 20:59 Last Admin: 09/16/24 20:30 Dose: 25 units Documented By: DOM Co-signed By: RENNY Admin: 09/15/24 19:44 Dose: 40 units Documented By: CHRIS Co-signed By: BIJAN Isosorbide Mononitrate (Isosorbide [place] Extended Rel 60 Mg Tabcr) 60 mg [facility] [place] Stop: 10/15/24 08:59 Last Admin: 09/17/24 09:50 Dose: 60 mg Documented By: Admin: 09/16/24 10:09 Dose: 60 mg Documented By: Admin: 09/15/24 10:15 Dose: 60 mg Documented By: YAMILKA Levothyroxine Sodium (Levothyroxine Sodium 75 Mcg Tablet) 225 mcg PO DAILYBB [facility] Stop: 10/15/24 06:29 Last Admin: 09/17/24 05:38 Dose: 225 mcg Documented By: Admin: 09/16/24 05:31 Dose: 225 mcg Documented By: Admin: 09/15/24 06:13 Dose: 225 mcg Documented By: CHRIS Magnesium Oxide (Magnesium Oxide 400 Mg Tab) 400 mg [facility] [place] Stop: 10/15/24 08:59 Last Admin: 09/17/24 09:47 Dose: 400 mg Documented By: Admin: 09/16/24 10:08 Dose: 400 mg Documented By: Admin: 09/15/24 10:15 Dose: 400 mg Documented By: YAMILKA Metoprolol Tartrate (Metoprolol Tartrate 25 Mg Tab) 25 mg PO BID [facility] Stop: 10/14/24 20:59 Last Admin: 09/17/24 09:47 Dose: 25 mg Documented By: Admin: 09/16/24 20:35 Dose: 25 mg Documented By: Admin: 09/16/24 10:09 Dose: 25 mg Documented By: Admin: 09/15/24 19:41 Dose: 25 mg Documented By: Admin: 09/15/24 10:18 Dose: 25 mg Documented By: Admin: 09/14/24 20:22 Dose: 25 mg Documented By: CHRIS Miconazole Nitrate (Miconazole Nitrate Powder 85 Gm) 1 appln TOP DAILY [facility] Stop: 10/15/24 08:59 Last Admin: 09/17/24 09:52 Dose: 1 appln Documented By: Admin: 09/16/24 10:10 Dose: Not Given Documented By: Admin: 09/15/24 10:19 Dose: Not Given Documented By: RAMYN Multivitamins (Multivitamin Tab) 1 tab PO QAM [facility] Stop: 10/15/24 08:59 Last Admin: 09/17/24 09:49 Dose: 1 tab Documented By: Admin: 09/16/24 10:08 Dose: 1 tab Documented By: Admin: 09/15/24 10:16 Dose: 1 tab Documented By: YAMILKA Oxycodone HCl (Oxycodone Hcl Ir 5 Mg Tab (Immediate Release)) 10 mg PO Q8H PRN PRN Reason: Pain Stop: 09/28/24 18:52 Last Admin: 09/16/24 22:48 Dose: 10 mg Documented By: Admin: 09/16/24 10:33 Dose: 10 mg Documented By: Admin: 09/15/24 15:24 Dose: 10 mg Documented By: CF Pantoprazole Sodium (Pantoprazole 40 Mg Tab) 40 mg PO DAILYBB [facility] Stop: 10/15/24 06:29 Last Admin: 09/17/24 05:37 Dose: 40 mg Documented By: Admin: 09/16/24 05:31 Dose: 40 mg Documented By: Admin: 09/15/24 06:13 Dose: 40 mg Documented By: CHRIS Potassium Chloride (Potassium Chloride Crtab 20 Meq Tabcr) 20 meq PO BID [facility] Stop: 10/14/24 20:59 Last Admin: 09/14/24 20:20 Dose: 20 meq Documented By: CHRIS Sertraline HCl (Sertraline Hcl 50 Mg Tablet) 50 mg PO QAM [facility] Stop: 10/15/24 08:59 Last Admin: 09/17/24 09:49 Dose: 50 mg Documented By: Admin: 09/16/24 10:09 Dose: 50 mg Documented By: Admin: 09/15/24 10:16 Dose: 50 mg Documented By: YAMILKA Spironolactone (Spironolactone 25 Mg Tab) 25 mg PO QAM [facility] Stop: 10/15/24 08:59 Last Admin: 09/17/24 09:47 Dose: 25 mg Documented By: Admin: 09/16/24 10:10 Dose: 25 mg Documented By: Admin: 09/15/24 10:16 Dose: 25 mg Documented By: YAMILKA Topiramate (Topiramate 100 Mg Tab) 200 mg PO HS [facility] Stop: 10/14/24 20:59 Last Admin: 09/16/24 20:32 Dose: 200 mg Documented By: Admin: 09/15/24 19:42 Dose: 200 mg Documented By: Admin: 09/14/24 20:22 Dose: 200 mg Documented By: CHRIS Topiramate (Topiramate 100 Mg Tab) 100 mg PO DAILY@0900 [facility] Stop: 10/15/24 08:59 Last Admin: 09/17/24 09:48 Dose: 100 mg Documented By: Admin: 09/16/24 10:11 Dose: 100 mg Documented By: Admin: 09/15/24 10:16 Dose: 100 mg Documented By: YAMILKA Discontinued Medications Albuterol (Albut/Ipratrop 3mg/0.5mg Neb 3 Ml Vial) 6 ml INH NOW STA Stop: 09/14/24 13:34 Last Admin: 09/14/24 13:56 Dose: 6 ml Documented By: CHRISTOPHER Azithromycin (Azithromycin 250 Mg Tab) 500 mg PO NOW ONE Stop: 09/14/24 15:35 Last Admin: 09/14/24 16:58 Dose: 500 mg Documented By: MICHAEL Enoxaparin Sodium (Enoxaparin Inj 40 Mg/0.4 Ml Syr) 40 mg SQ Q12H [facility] Stop: 10/14/24 20:59 Last Admin: 09/15/24 10:17 Dose: 40 mg Documented By: Admin: 09/14/24 20:20 Dose: 40 mg Documented By: CHRIS Enoxaparin Sodium (Enoxaparin 80 Mg/0.8 Ml Syr) 80 mg SQ BID@0900,0905,2100,2105 [facility] Stop: 10/15/24 20:59 Last Admin: 09/16/24 10:11 Dose: 80 mg Documented By: Admin: 09/16/24 10:10 Dose: 80 mg Documented By: Admin: 09/15/24 19:43 Dose: 80 mg Documented By: Admin: 09/15/24 19:42 Dose: 80 mg Documented By: CHRIS Furosemide (Furosemide 40 Mg/4 Ml Vial) 40 mg IV ONE ONE Stop: 09/14/24 14:53 Last Admin: 09/14/24 15:31 Dose: 40 mg Documented By: MICHAEL Furosemide (Furosemide 40 Mg/4 Ml Vial) 40 mg IV BID17 ASIYA Stop: 10/14/24 16:59 Last Admin: 09/15/24 16:36 Dose: 40 mg Documented By: Admin: 09/15/24 10:18 Dose: 40 mg Documented By: Admin: 09/14/24 19:06 Dose: Not Given Documented By: CHRIS Magnesium Sulfate/Dextrose (Magnesium Sulfate / D5w) 1 gm in 100 mls @ 100 mls/hr IV NOW STA Stop: 09/14/24 14:32 Last Infusion: 09/14/24 15:32 Dose: Infused Documented By: Admin: 09/14/24 13:50 Dose: 100 mls/hr Documented By: DAVE Magnesium Sulfate/Dextrose (Magnesium Sulfate / D5w) 1 gm in 100 mls @ 50 mls/hr IV ONE ONE Stop: 09/15/24 15:06 Last Infusion: 09/15/24 16:23 Dose: Infused Documented By: Admin: 09/15/24 14:23 Dose: 50 mls/hr Documented By: YAMILKA Insulin Glargine (Lantus Per Unit Charge) 25 units SC TODAY@2100 [facility] Stop: 09/14/24 21:01 Last Admin: 09/14/24 20:21 Dose: 25 units Documented By: CHRIS Co-signed By: RONN Methylprednisolone (Methylprednisolone 125 Mg/2 Ml Vial) 125 mg IV NOW STA Stop: 09/14/24 13:34 Last Admin: 09/14/24 13:51 Dose: 125 mg Documented By: DAVE Sodium Chloride (Sodium Chlor 7% 4 Ml Neb) 4 ml NEB BIDR [facility] Stop: 10/15/24 10:34 Last Admin: 09/16/24 07:43 Dose: 4 ml Documented By: Admin: 09/15/24 19:37 Dose: 4 ml Documented By: Admin: 09/15/24 11:00 Dose: 4 ml Documented By: OZIEL Imaging Data Radiologist's Impression: Chest X-Ray 09/14/24 13:33 XR chest 1V portable CLINICAL HISTORY: Dyspnea TECHNIQUE: Single frontal radiograph of the chest was obtained. Comparison: Comparison is made to chest radiograph 06/13/2021 FINDINGS: Tracheostomy tube is seen. Cardiomegaly is noted. Reticular interstitial opacities are seen. No evidence of pleural effusion or pneumothorax. IMPRESSION: No acute chest disease. Cardiomegaly is noted. ACT 112: Negative or not required by law. Electronically signed by: Layo Cutler M.D. 09/14/2024 1:46 PM Discharge Plan Visit Data Chief Complaint: Shortness of Breath/Dyspnea Stated Complaint: SOB ED Provider: Darrell Richardson Discharge Problem: Acute respiratory failure with hypoxia, Congestive heart failure, COPD with acute exacerbation Patient Disposition: Admitted As Inpatient Discharge Instructions Interventions: ED Discharge Assessment Last Done: 09/14/24 18:15 Discharge Problem: Congestive heart failure Qualifiers: Heart failure type: unspecified Heart failure chronicity: acute on chronic Q ualified Code(s): I50.9 - Heart failure, unspecified
--- NOTE | 2024-09-14 13:48 | XRay Report ---
XR chest 1V portable CLINICAL HISTORY: Dyspnea TECHNIQUE: Single frontal radiograph of the chest was obtained. Comparison: Comparison is made to chest radiograph 06/13/2021 FINDINGS: Tracheostomy tube is seen. Cardiomegaly is noted. Reticular interstitial opacities are seen. No evide nce of pleural effusion or pneumothorax. IMPRESSION: No acute chest disease. Cardiomegaly is noted. ACT 112: Negative or not required by law. Electronically signed by: Layo Cutler M.D. 09/14/2024 1:46 PM
[2024-09-14] MEDS: MAGNESIUM SULFATE / D5W 1 GM/100 ML BAG IV STA (13:50)
[2024-09-14] MEDS: methylPREDNISolone 125 MG/2 ML VIAL IV STA (13:51)
[2024-09-14] MEDS: ALBUT/IPRATROP 3MG/0.5MG NEB 3 ML VIAL INH STA (13:56)
[2024-09-14 13:58] LABS: Basophils # (auto) 0.04 K/uL (0.00-0.20); Basophils % (auto) 0.4 %; Eosinophils # (auto) 0.22 K/uL (0.00-0.50); Eosinophils % (auto) 2.4 %; Hematocrit (blood only) 41.2 % (37.0-47.0); Hemoglobin 11.6 g/dl (12.0-16.0); Immature Granulocytes # (auto) 0.05 K/uL (0.01-0.20); Immature Granulocytes % (auto) 0.5 %; Lymphocytes # (auto) 1.07 K/uL (1.20-3.40); Lymphocytes % (auto) 11.5 %; Mean Corpuscular Hemoglobin 26.9 pg (25.0-34.0); Mean Corpuscular Hgb Conc 28.2 g/dL (32.0-36.0); Mean Corpuscular Volume 95.6 fL (80.0-100.0); Mean Platelet Volume 9.9 fL (9.4-12.4); Monocytes # (auto) 0.69 K/uL (0.11-0.59); Monocytes % (auto) 7.4 %; Neutrophils # (auto) 7.25 K/uL (1.40-6.50); Neutrophils % (auto) 77.8 %; Platelet Count 270 K/uL (130-400); RDW Standard Deviation 56.4 fL (36.4-46.3); Red Blood Count 4.31 M/uL (4.20-5.40); White Blood Count 9.32 K/ul (4.8-10.8)
[2024-09-14 14:07] LABS: Albumin Globulin Ratio 0.8 (0.9-2); Albumin Level 3.4 gm/dl (3.4-5.0); BUN Creatinine Ratio 17.5 (10-20); Bilirubin,Total 0.4 mg/dl (0.2-1.0); Calcium 8.9 mg/dl (8.6-10.3); Creatinine Clr Calc Pharmacy 63.4 ml/min; Globulin 4.3 gm/dl (2.5-4.0); Total Protein 7.7 gm/dl (6.0-8.3)
[2024-09-14 14:13] LABS: Troponin I High Sensitivity 8.5 pg/ml (0-14)
[2024-09-14 14:14] LABS: Base Excess VBG 2.4 mEq/L; HCO3 VBG 32 mmol/L; Oxygen Saturation VBG < 60.0 %; PCO2 VBG 81 mmHg (38-50); PO2 VBG 32 mmHg; pH VBG 7.21 (7.36-7.41)
--- NOTE | 2024-09-14 15:06 | History & Physical Report ---
Date of Service September 14, 2024 Assessment & Plan (1) Acute respiratory failure with hypoxia: Plan: Acute hypoxic hypercapnic respiratory failure Patient does not normally use daytime oxygen, uses 8 L of oxygen at night. Is requiring 2 L via trach collar on admission VBG 7.2 consistent with acute respiratory acidosis Suspect combination of acute on chronic CHF/cor pulmonale with 20 kg of additional weight from prior dry weight, although chest x-ray is not overtly overloaded and patient is with scattered wheezing likely also has a superimposed COPD exacerbation (2) Acute diastolic (congestive) heart failure: Plan: Acute on chronic diastolic heart failure, cor pulmonale Last known dry weight approximately 160-164 kg. Admitting weight 180 kg Does endorse progressively worsening orthopnea, and swelling of the lower extremities Chest x-ray: No overt edema Patient is on torsemide 40 mg at bedtime at home. Continued on Lasix 40 mg IV twice daily on admission BNP mildly elevated at 135, last 42 05/2024 Creatinine baseline approximately 1.51.8. Creatinine on admission 1.37 (3) COPD with acute exacerbation: Plan: Acute on chronic COPD exacerbation Patient has felt feverish with some chills and increased cough and change in sputum quality in the last few days. No signs of pneumonia on x-ray, there is no leukocytosis. Respiratory bio fire is pending. Covered with azithromycin for COPD. exacerbation on admission. No QT prolongation on admitting EKG With scattered wheezing on ER assessment Patient received methylprednisolone 125 mg x 1 and magnesium x 1, albuterol x 1 in the ER with improvement Afebrile., No leukocytosis Continue methylprednisolone 40 mg twice daily, wean as able DuoNebs every 4 hours Flutter valve, incentive spirometry Guaifenesin ordered Titrate oxygen to goal 89%. Do not hyper oxygenate due to COPD physiology VBG 7.2 suggestive of acute respiratory acidosis. The patient has a Christophe trach w/o cuff. Discussed with pulmonary and respiratory therapy on admission. Patient appears greatly improved at the bedside, is alert oriented and with improved breathing following nebulizer treatments. Will repeat blood gas and trend. If she is worsening then would need transfer to the ICU at that time for either trach exchange with cuff to allow for PPV versus intubation. Will admit to PCU for now and follow serial blood gases and clinical progression. (4) Diabetic retinopathy associated with type 2 diabetes mellitus: Plan: Type 2 diabetes With history of labile hypoglycemia SSI ordered with pharmacy glycemic consult due to concurrent steroid use Glucose checks ACHS Type II DM/heart healthy diet Plan Chronic pain Continued home oxycodone, hold for narcosis. Narcan available on-call if needed DVT prophylaxis: Lovenox Disposition: PCU CODE STATUS: Full code Diet: Heart healthy/DM2 History of Present Illness Primary Care Provider: Ofe Mcgee MD Megan is a 69-year-old female with a past medical history of chronic hypoxic respiratory failure tracheostomy dependent, RASHAAD, OHS, cor pulmonale, COPD, insulin-dependent diabetes mellitus, and chronic nonweightbearing of her right lower extremity due to nonhealing fracture who presented to the ER with acute worsening shortness of breath, over 15 kg of weight gain from her previously known dry weight, intermittent cough and daytime oxygen requirement which is not typical for her and she is recommended for admission for acute on chronic heart failure with weakness limiting her abilities to perform activities of daily living. Viviana is seen at the bedside. She reports that over the last several weeks she has had a significant amount of progressive weight gain, fluid buildup in her legs, and worsening orthopnea. In addition to this in the last week she has had a feeling of fever, chills, increased wheezing, thickened sputum production, and increased cough which caused her to present to the ER. She does not use PPV at home. She denies chest pain at any point. Reports she has been taking her home medications. Denies chest pressure. No lightheadedness or dizziness. She expresses an understanding that if her hypercapnia/acidosis worsens she would need a trach exchange versus intubation and options will not help with this process, is agreeable to this if needed. Full code. Social history reviewed Allergies Allergy/AdvReac Type Severity Reaction Status Date / Time animal dander Allergy Intermediate Sneezing, Unverified 08/13/24 11:43 itchy watery eyes and Difficulty Breathing Penicillins Allergy Intermediate Hives Verified 08/13/24 11:43 tree and shrub pollen Allergy Intermediate Sneezing, Unverified 08/13/24 11:43 itchy watery eyes and Difficulty Breathing amitriptyline Allergy Unknown CAN'T Verified 08/13/24 11:43 REMEMBER doxycycline Allergy Unknown CAN'T Verified 08/13/24 11:43 REMEMBER guaifenesin Allergy Unknown CAN'T Verified 08/13/24 11:43 REMEMBER metformin Allergy Unknown CAN'T Verified 08/13/24 11:43 REMEMBER phenylephrine Allergy Unknown CAN'T Verified 08/13/24 11:43 REMEMBER pseudoephedrine Allergy Unknown CAN'T Verified 08/13/24 11:43 REMEMBER tetracycline Allergy Unknown CAN'T Verified 08/13/24 11:43 REMEMBER venlafaxine [From Effexor] Allergy Unknown CAN'T Verified 08/13/24 11:43 REMEMBER gabapentin AdvReac Intermediate BECOMES Verified 08/13/24 11:43 AGGRESSIVE Home Medications Medication Instructions Recorded Confirmed Type aspirin 81 mg tablet,delayed 81 mg PO QAM #30 tabs 04/06/23 09/14/24 Rx release (Robert Low Dose Aspirin) atorvastatin 40 mg tablet 40 mg PO QPM #30 tabs 04/06/23 09/14/24 Rx folic acid 1 mg tablet 1 mg PO QAM #30 tabs 04/06/23 09/14/24 Rx magnesium oxide 400 mg PO QAM #30 tabs 04/06/23 09/14/24 Rx multivitamin 1 tab PO QAM #30 tabs 04/06/23 09/14/24 Rx nitroglycerin 0.4 mg sublingual 0.4 mg sublingual DIRECTED PRN 04/06/23 09/14/24 Rx tablet Chest Pain #25 tabs pantoprazole 40 mg tablet,delayed 40 mg PO DAILYBB #30 tabs 04/06/23 09/14/24 Rx release sertraline 50 mg tablet 50 mg PO QAM #30 tabs 04/06/23 09/14/24 Rx spironolactone 25 mg tablet 25 mg PO QAM #30 tabs 04/06/23 09/14/24 Rx blood-glucose meter (OneTouch #1 ea 07/21/23 08/13/24 Rx Ultra2 Meter) pen needle, diabetic 32 gauge x #150 ea 08/26/23 08/13/24 Rx 5/32" (BD Kaitlin 2nd Gen Pen Needle) pen needle, diabetic 32 gauge x #50 ea 08/26/23 08/13/24 Rx 5/32" (BD Kaitlin 2nd Gen Pen Needle) nebulizers #1 ea 11/16/23 08/13/24 Rx ipratropium 0.5 mg-albuterol 3 mg 3 ml inhalation Q4H PRN COUGHING, 11/25/23 09/14/24 Rx (2.5 mg base)/3 mL nebulization WHEEZING, SHORTNESS OF BREATH #180 soln mL diclofenac sodium 1 % topical gel 4 g EXT QID PRN Pain 01/15/24 09/14/24 History (Voltaren Arthritis Pain) naloxone 4 mg/actuation nasal 4 mg intranasal DIRECTED PRN 01/15/24 09/14/24 History spray (Narcan) OVERDOSE bupropion HCl 100 mg tablet,12 hr 100 mg PO UD 02/03/24 09/14/24 History sustained-release potassium chloride 20 mEq 20 meq PO BID 02/03/24 09/14/24 History tablet,extended release budesonide 0.5 mg/2 mL suspension 0.5 mg (2 mL) NEB BIDR #120 mL 03/02/24 09/14/24 Rx for nebulization diclofenac sodium 75 mg 75 mg PO BID #60 tabs 03/02/24 09/14/24 Rx tablet,delayed release famotidine 20 mg tablet 20 mg PO DAILY PRN heartburn #30 03/02/24 09/14/24 Rx tabs ipratropium 20 mcg-albuterol 100 1 puff inhalation QID PRN 03/02/24 09/14/24 Rx mcg/actuation mist for inhalation shortness of breath #4 grams (Combivent Respimat) furosemide 80 mg tablet 80 mg PO QAM 06/13/24 09/14/24 History isosorbide mononitrate 60 mg 60 mg PO QAM 06/13/24 09/14/24 History tablet,extended release 24 hr levothyroxine 200 mcg tablet 200 mcg PO UD 06/13/24 09/14/24 History levothyroxine 25 mcg tablet 25 mcg PO UD 06/13/24 09/14/24 History metoprolol tartrate 25 mg tablet 25 mg PO BID 06/13/24 09/14/24 History topiramate 100 mg tablet 100 mg PO UD 06/13/24 09/14/24 History torsemide 20 mg tablet 40 mg PO QPM 06/13/24 09/14/24 History miconazole nitrate 2 % topical 1 applic topical DAILY Skin 06/15/24 09/14/24 Rx powder (Desenex) irritation #85 grams insulin aspart U-100 100 unit/mL See Rx Instructions subcut DAILY 08/21/24 09/14/24 Rx subcutaneous solution (Novolog #100 mL U-100 Insulin aspart) blood sugar diagnostic (OneTouch #400 ea 08/27/24 08/27/24 Rx Ultra Test strips) empagliflozin 10 mg tablet 10 mg PO UD 09/14/24 09/14/24 History (Jardiance) oxycodone 10 mg tablet 10 mg PO DIRECTED PRN Pain 09/14/24 09/14/24 History Past Med/Surg History Problem List COPD with acute exacerbation Acute diastolic (congestive) heart failure Acute respiratory failure with hypoxia Diabetic retinopathy associated with type 2 diabetes mellitus Skin ulcer of groin, limited to breakdown of skin Parainfluenza infection (Acute) Wheezing (Acute) SOB (shortness of breath) (Acute) Morbid obesity with BMI of 60.0-69.9, adult Insulin-requiring or dependent type II diabetes mellitus Hypothyroidism HTN (hypertension) Physical deconditioning Chronic kidney disease, stage 3 Dyslipidemia, goal LDL below 70 HTN, goal below 130/80 Chronic pain Iron deficiency Chronic hypoxic respiratory failure Diabetic nephropathy Seborrhea Back pain Open wound Lesion of left [place] kidney Ambulatory dysfunction Anemia Left knee pain Pain and swelling of right lower extremity (Acute) Pain and swelling of left lower extremity (Acute) Common migraine without aura (Acute) Hypersomnia with sleep apnea (Acute) Memory loss (Acute) Myoclonus (Acute) Tracheobronchitis (Acute) Palpitations Dyslipidemia (Chronic) MRSA (methicillin resistant staph aureus) culture positive (Chronic) "sputum 11/2015" History of hysterectomy (Chronic) Right ventricular dysfunction (Chronic) Medical History Hypoglycemia Tracheostomy in place Chronic kidney disease, stage 3b C. difficile diarrhea Acute gout Wound, breast Type 2 diabetes mellitus Right bundle branch block Presence of tracheostomy Morbid obesity Weakness Cor pulmonale CHF (congestive heart failure) Chronic diastolic heart failure cor pulmonale Chronic obstructive pulmonary disease Obesity hypoventilation syndrome Generalized weakness Fracture of distal end of right femur Hypothyroidism (acquired) Ureterolithiasis Vitamin D deficiency Adjustment disorder with depressed mood Tinea unguium GERD (gastroesophageal reflux disease) Anxiety Coronary artery disease RASHAAD (obstructive sleep apnea) Sepsis Surgical History History of tonsillectomy and adenoidectomy History of cholecystectomy History of appendectomy Family History Mother Coronary heart disease COPD (chronic obstructive pulmonary disease) Father Suicide Hung himself. Pt found him. Unknown Lung cancer Social History Smoking Status: Former smoker Tobacco Type: Cigarettes Second Hand Exposure: No; Do You Dip or Chew Tobacco: No; Hx Alcohol Use: No Hx Substance Use: No Preferred Language: Czech Communication Ability: Effective Visual Impairment: Limited Hearing Ability: Normal News [employer] Intern Required: No Beliefs That Will Affect Care: None marital status: Current Living Situation: Family Current Living Situation Comment: with daughter current occupational status: disabled How many Children do You have: 1 Feels Safe at Home: Yes Diet: regular Diet Comment: Drinks 1 Boost drink supplement in the morning caffeine: Yes (1 coffee daily) Physical Activity Frequency: Does not Exercise Seatbelt Use: always Do you think of yourself as: straight/heterosexual Gender Identity: Female Assistive Devices: Bedside Commode, BiPap, Hospital Bed, Oxygen - Continuous and Wheelchair Physical Exam Physical Exam: General: A&Ox3. NAD. Cooperative. HEENT: Atraumatic, normocephalic. Christophe tracheostomy tube in place without surrounding purulence discharge or erythema Pulm: Diminished but improved aeration at time of hospitalist reassessment and previously noted wheezes on ER exam are nearly absent with trace residual end expiratory wheezing. No rales are appreciated Cardiac: RRR, -mrg. Radial pulses intact and symmetrical. Abdominal: Nontender, nondistended, soft. BS present. Extremities: Diffuse pitting edema through the lower extremities bilaterally Results & Data Results & Data Vital Signs (Past 12 Hours) Vital Signs Temp Pulse Pulse Resp BP Pulse Ox O2 Del Method 09/14/24 13:57 65 22 96 Trach Collar 09/14/24 13:33 98 Trach Collar 09/14/24 13:25 75 09/14/24 13:24 16 09/14/24 13:24 Nasal Cannula 09/14/24 13:06 36.7 C 73 18 112/52 L 97 Nasal Cannula O2 Flow Rate 09/14/24 13:57 2 09/14/24 13:33 2 09/14/24 13:25 09/14/24 13:24 09/14/24 13:24 2 09/14/24 13:06 2 PG Care Time/CCT Total # of Minutes Spent Total Time Spent with Patient: Total time spent is greater than 50% in coordination of care (as documented) at patient's floor/unit and/or counseling patient: Coding Level of Care Code 22253 INT INP/OBS CARE 3/75MIN Diagnoses Acute respiratory failure with hypoxia J96.01 Acute diastolic (congestive) heart failure I50.31 COPD with acute exacerbation J44.1 Diabetic retinopathy associated with type 2 diabetes mellitus E11.319
[2024-09-14] MEDS: FUROSEMIDE 40 MG/4 ML VIAL IV ONE (15:31)
[2024-09-14] MEDS ORDERED: IPRATROPIUM BROMIDE/ALBUTEROL respimat INH INH PRN (15:34)
[2024-09-14] MEDS ORDERED: GLUCAGON FOR INJ 1 MG VIAL SQ PRN (15:39)
[2024-09-14] MEDS ORDERED: GLUCOSE 40% GEL 15 GM TUBE PO PRN (15:39)
[2024-09-14] MEDS ORDERED: GLUCOSE 10 TAB/TUBE PO PRN (15:39)
[2024-09-14] MEDS ORDERED: CARBOHYDRATES FOR HYPOGLYCEMIA PO PRN (15:39)
[2024-09-14] MEDS ORDERED: PHARMACY GLYCEMIC MGMT CONSULT PRN (15:39)
[2024-09-14] MEDS ORDERED: DEXTROSE 50% 50 ML SYRINGE IV PRN (15:39)
[2024-09-14 16:17] LABS: iSTAT Arterial Blood Gas HCO3 29 meg/L (19-24); iSTAT Arterial Blood Gas pCO2 65 mmHg (35-46); iSTAT Arterial Blood Gas pH 7.25 (7.35-7.45); iSTAT Arterial Blood Gas pO2 99 mmHg (80-95); iSTAT Carbon Dioxide 31 mmol/L (24-31); iSTAT Hematocrit 40 % (37-47); iSTAT Hemoglobin 13.6 g/dl (12.0-16.0); iSTAT Potassium 4.7 mmol/L (3.3-5.0); iSTAT Sample Type Arterial; iSTAT Sodium 140 mmol/L (135-144)
[2024-09-14 16:48] LABS: Adenovirus PCR Not Detected (NotDetected); Bordetella parapertussis PCR Not Detected (NotDetected); Bordetella pertussis PCR Not Detected (NotDetected); Chlamydia pneumoniae PCR Not Detected (NotDetected); Coronavirus 229E PCR Not Detected (NotDetected); Coronavirus CoV-2 (COVID19)PCR Not Detected (NotDetected); Coronavirus HKU1 PCR Not Detected (NotDetected); Coronavirus NL63 PCR Not Detected (NotDetected); Coronavirus OC43PCR Not Detected (NotDetected); Human Metapneumovirus PCR Not Detected (NotDetected); Influenza A PCR Not Detected (NotDetected); Influenza B PCR Not Detected (NotDetected); Mycoplasma pneumoniae PCR Not Detected (NotDetected); Parainfluenza Virus 1 PCR Not Detected (NotDetected); Parainfluenza Virus 2 PCR Not Detected (NotDetected); Parainfluenza Virus 3 PCR Not Detected (NotDetected); Parainfluenza Virus 4 PCR Not Detected (NotDetected); Respiratory Syncytial VirusPCR Not Detected (NotDetected); Rhinovirus/Enterovirus PCR Not Detected (NotDetected)
[2024-09-14] MEDS: AZITHROMYCIN 250 MG TAB PO ONE (16:58)
[2024-09-14] MEDS ORDERED: ACETAMINOPHEN 325 MG TAB PO PRN (18:53)
[2024-09-14] MEDS ORDERED: TOPIRAMATE 100 MG TAB PO SCH (18:53)
[2024-09-14] MEDS ORDERED: NITROGLYCERIN SL 0.4 MG/TAB TAB SL PRN (18:53)
[2024-09-14] MEDS: FUROSEMIDE 40 MG/4 ML VIAL IV SCH (19:06)
[2024-09-14] MEDS: INSULIN ASPART PER UNIT CHARGE SC SCH (19:07)
[2024-09-14 19:52] LABS: Base Excess VBG 0.9 mEq/L; HCO3 VBG 29 mmol/L; Oxygen Saturation VBG 65.7 %; PCO2 VBG 64 mmHg (38-50); PO2 VBG 37 mmHg; pH VBG 7.27 (7.36-7.41)
[2024-09-14] MEDS: ALBUT/IPRATROP 3MG/0.5MG NEB 3 ML VIAL INH SCH (19:57)
[2024-09-14] MEDS: BUDESONIDE 0.5 MG/2 ML VIAL (PULMICORT) NEB SCH (19:57)
[2024-09-14] MEDS: POTASSIUM CHLORIDE CRTAB 20 MEQ TABCR PO SCH (20:20)
[2024-09-14] MEDS: ENOXAPARIN INJ 40 MG/0.4 ML SYR SQ SCH (20:20)
--- NOTE | 2024-09-14 20:20 | Electrocardiogram Report ---
Test Reason : Blood Pressure : */* mmHG Vent. Rate : 73 BPM Atrial Rate : 73 BPM P-R Int : 266 ms QRS Dur : 134 ms QT Int : 416 ms P-R-T Axes : 54 -49 12 degrees QTcB Int : 458 ms Poor data quality, interpretation may be adversely affected Sinus rhythm with 1st degree A-V block with occasional Premature ventricular complexes Right bundle branch block Left anterior fascicular block Bifascicular block Possible Anterolateral infarct When compared with ECG of 13-Jun-2024 02:03, No significant change Confirmed by Lev Trejo ([id number]) on 09/14/2024 8:20:29 PM Referred By: Confirmed By: Lev Trejo
[2024-09-14] MEDS: methylPREDNISolone 40 MG in SYRINGE 0 ML IV SCH (20:21)
[2024-09-14] MEDS: LANTUS PER UNIT CHARGE SC SCH (20:21)
[2024-09-14] MEDS: METOPROLOL TARTRATE 25 MG TAB PO SCH (20:22)
[2024-09-14] MEDS: TOPIRAMATE 100 MG TAB PO SCH (20:22)
[2024-09-14] MEDS: buPROPion SR 100 MG TABCR PO SCH (20:22)
[2024-09-14] MEDS: ATORVASTATIN 40 MG TAB PO SCH (20:23)
[2024-09-14 22:58] LABS: Base Excess VBG 0.7 mEq/L; HCO3 VBG 28 mmol/L; PCO2 VBG 54 mmHg (38-50); PO2 VBG 54 mmHg; pH VBG 7.32 (7.36-7.41)
--- OUTSIDE RECORDS SUMMARY | 2024-09-15 02:52 | External Medical Summary | Continuity of Care Document ---
Author Name Unknown Organization [facility] [address] [place] [address] [address] [place] [phone] Care Team Providers Care Radio Mechanic Name Role Phone McgeeOfe Primary Care Physician [phone] Encounter [facility] [id number] Date(s): 09/07/24 - 09/07/24 [facility] 1849 [facility] 207 [facility] Medical [facility] [address] [address] [phone] Encounter Diagnosis Ambulatory dysfunction(Discharge Diagnosis) - 09/07/24 CHF (congestive heart failure)(Discharge Diagnosis) - 09/07/24 Chronic respiratory failure(Discharge Diagnosis) - 09/07/24 Discharge Disposition: Home or Self Care Attending Physician: MD Mena, Enzo White Allergies, Adverse Reactions, Alerts Substance Criticality Severity Reaction Reaction Severity Status doxycycline Unable to assess criticality Mild unknown Active amoxicillin Unable to assess criticality Mild Rash Active fentaNYL hallucinations foggy brain spaced out Active penicillin Unable to assess criticality Mild Hives Active Duratuss DM Unable to assess criticality Mild unknown Active Neurontin Unable to assess criticality Moderate Violent behavior Active Glucophage Unable to assess criticality Mild Nausea Active Elavil Unable to assess criticality Moderate Violent behavior Active Cats difficulty breathing Active Lyrica "jerks", loss o f balance causing fall Active Immunizations Given and [...] bivalent 1 10/26/22 R ecorded SARS-CoV-2 mRNA ([id number]) 2 06/08/22 Recorded SARS-CoV-2 (COVID-19) mRNA BNT-162b2 [...] 325 mg oral tablet Start: 05/20/21 10:40:00 AM EDT, 650 Unknown, Oral, 1 Refill(s) Start Date: 05/20/21 Status: Ordered Albuterol (Eqv-ProAir HFA) 90 mcg/inh inhalation aerosol Start: 11/01/23 1:54:00 PM EST, 2 puff, inhaled, q6h, Disp# 6.7 g, Refills: 5, Pharmacy: [id number] Start Date: 11/01/23 Status: Ordered albuterol-ipratropium 2.5 mg-0.5 mg/3 mL inhalation solution Start: 09/07/24 11:36:00 AM EDT, 3 mL, inhaled, q6h, Disp# 90 mL, Refills: 5, PRN: as needed for shortness of breath or wheezing, Pharmacy: [id number] Start Date: 09/07/24 Status: Ordered aspirin 81 mg oral delayed release tablet Start: 02/02/24 11:46:00 AM EDT, 1 tab, PO, Daily, Disp# 90 tab, Refills: 2, 81 Unknown, Oral, 1 Refill(s), Pharmacy: [id number] Start Date: 02/02/24 Status: Ordered Aspirin Low Dose 81 mg oral delayed release tablet Start: 03/06/24 11:51:00 AM EDT, 30 tab, 0 Refill(s) Start Date: 03/06/24 Status: Ordered atorvastatin 40 mg oral tablet Start: 05/16/24 7:25:00 PM EDT, 1 tab, PO, Daily, Disp# 30 tab, Refills: 3, Pharmacy: [id number] Start Date: 05/16/24 Stop Date: 09/13/24 Status: Ordered budesonide 0.5 mg/2 mL inhalation suspension Start: 04/19/24 1:48:00 PM EDT, 2 mL, NEB, bid, Disp# 120 mL, Refills: 2, Pharmacy: [id number] Start Date: 04/19/24 Stop Date: 07/18/24 Status: Ordered buPROPion 100 mg/12 hours (SR) oral tablet, extended release Start: 08/20/24 8:05:00 PM EDT, See Instructions, Disp# 90 tab, Refills: 2, take 1 tablet by mouth in the morning and 2 tablets in the evening, Pharmacy: [facility] Start Date: 08/20/24 Status: Ordered Combivent Respimat 20 mcg-100 mcg/inh inhalation aerosol Start: 09/05/24 7:57:00 PM EDT, 1 puff, inhaled, q4h, Disp# 1 each, Refills: 2, Pharmacy: [id number] Start Date: 09/05/24 Status: Ordered conjugated estrogens 0.625 mg/g vaginal cream with applicator Start: 04/17/24 6:57:00 PM EDT, 0.5 g =, vaginal, qPM, Disp# 7 g, Refills: 0, Pharmacy: [facility] Start Date: 04/17/24 Stop Date: 05/01/24 Status: Ordered Desitin 40% topical paste Start: 05/18/24 11:35:00 AM EDT, 1 appl, topical, 5x/Day, Disp# 454 g, Refills: 6, Pharmacy: [id number] Start Date: 05/18/24 Status: Ordered diclofenac 1% topical gel Start: 03/06/24 11:51:00 AM EDT, 100 g, 0 Refill(s) Start Date: 03/06/24 Status: Ordered diclofenac sodium 75 mg oral delayed release tablet Start: 08/28/24 3:42:00 PM EDT, 1 tab, PO, bid, Disp# 60 tab, Refills: 1, 60 tab, 0 Refill(s), Pharmacy: [facility] Start Date: 08/28/24 Stop Date: 10/27/24 Status: Ordered docusate sodium 100 mg oral capsule Start: 11/01/23 1:55:00 PM EST, 1 cap, PO, bid, Disp# 60 cap, 100 Unknown, Oral, 1 Refill(s), Pharmacy: [facility] Start Date: 11/01/23 Status: Ordered famotidine 20 mg oral tablet Start: 04/09/24 3:08:00 PM EDT, 1 tab, PO, Daily, Disp# 30 tab, 30 tab, 0 Refill(s), Pharmacy: [facility] Start Date: 04/09/24 Stop Date: 05/09/24 Status: Ordered folic acid 1 mg oral tablet Start: 08/06/24 11:35:00 AM EDT, See Instructions, Disp# 30 tab, Refills: 6, TAKE 1 TABLET BY MOUTH ONCE DAILY, Pharmacy: [facility] Start Date: 08/06/24 Status: Ordered HumaLOG Vial 100 units/mL injectable solution Start: 11/04/23 6:39:00 PM EST, 1 unit =, subQ, Daily, Disp# 3 mL, Refills: 4, Per pump, Note to Pharmacy: May substitute for formulary equivalent., Pharmacy: [facility] Start Date: 11/04/23 Status: Ordered hydrocortisone 1% topical cream Start: 05/14/24 3:47:00 PM EDT, 1 appl, topical, bid, Disp# 15 g, Pharmacy: [facility] Start Date: 05/14/24 Stop Date: 05/28/24 Status: Ordered isosorbide mononitrate 60 mg oral tablet, extended release Start: 11/01/23 1:56:00 PM EST, See Instructions, Disp# 30 tab, Refills: 3, TAKE ONE TABLET BY MOUTH EVERY MORNING, Pharmacy: [facility] Start Date: 11/01/23 Status: Ordered Keflex 500 mg oral capsule Start: 05/14/24 3:47:00 PM EDT, 1 cap, PO, qid, Disp# 40 cap, Pharmacy: [facility] Start Date: 05/14/24 Stop Date: 05/24/24 Status: Ordered levothyroxine 200 mcg (0.2 mg) oral tablet Start: 11/01/23 1:57:00 PM EST, 1 tab, PO, Daily, Disp# 30 tab, Refills: 6, Pharmacy: [facility] Start Date: 11/01/23 Stop Date: 05/29/24 Status: Ordered levothyroxine 25 mcg (0.025 mg) oral tablet Start: 11/01/23 1:57:00 PM EST, 1 tab, PO, Daily, Disp# 30 tab, Refills: 6, Note to Pharmacy: should be on 225 mcg, Pharmacy: [facility] Start Date: 11/01/23 Stop Date: 05/29/24 Status: Ordered loratadine 10 mg oral tablet Start: 06/06/24 2:48:00 PM EDT, 1 tab, PO, Daily, Disp# 30 tab, Refills: 6, 10 Unknown, Oral, 1 Refill(s), Pharmacy: [facility] Start Date: 06/06/24 Status: Ordered melatonin Start: 03/07/24 10:41:00 AM EDT Start Date: 03/07/24 Status: Ordered metOLazone 2.5 mg oral tablet Start: 11/01/23 1:57:00 PM EST, 1 tab, PO, Daily, Disp# 30 tab, Refills: 4, Pharmacy: [facility] Start Date: 11/01/23 Status: Ordered Metoprolol Tartrate 25 mg oral tablet Start: 03/29/24 11:34:00 AM EDT, See Instructions, Disp# 60 tab, Refills: 6, TAKE 1 TABLET BY MOUTH TWICE DAILY, Pharmacy: [facility] Start Date: 03/29/24 Status: Ordered miconazole 2% topical cream Start: 06/28/24 3:23:00 PM EDT, 1 appl, topical, Daily, Disp# 4 g, Refills: 0, Pharmacy: [facility] Start Date: 06/28/24 Stop Date: 07/12/24 Status: Ordered montelukast 10 mg oral tablet Start: 11/01/23 1:57:00 PM EST, See Instructions, Disp# 30 tab, Refills: 11, TAKE 1 TABLET BY MOUTHEVERY EVENING, Pharmacy: [facility] Start Date: 11/01/23 Status: Ordered Narcan 4 mg/0.1 mL nasal spray Start: 01/06/24 4:52:00 PM EST, 4 mg =, intranasal, ONCE, Disp# 2 each, Refills: 0, in case of overdose/unresponsive. may repeat every 2 to 3 minutes until patient responds, Pharmacy: [facility] Start Date: 01/06/24 Status: Ordered nitroglycerin 0.4 mg sublingual tablet Start: 07/11/24 1:00:00 PM EDT, 1 tab, SL, q5min, Disp# 100 tab, Refills: 3, PRN: as needed for chest pain, Pharmacy: [facility] Start Date: 07/11/24 Status: Ordered nitroglycerin 0.4 mg sublingual tablet Start: 07/11/24 1:00:00 PM EDT, 1 tab, SL, q5min, Disp# 100 tab, Refills: 3, PRN: as needed for chest pain, Pharmacy: [facility] Start Date: 07/11/24 Status: Ordered One Touch Ultra Test Strips 100 ct Start: 05/29/24 4:18:00 AM EDT, See Instructions, Disp# 100 each, Refills: 0, Test ACHS, Note to Pharmacy: May substitute for glucometer, Pharmacy: [facility] Start Date: 05/29/24 Status: Ordered oxyCODONE 10 mg oral tablet Start: 09/07/24 11:53:00 AM EDT, 1 tab, PO, bid, Disp# 60 tab, Refills: 0, PRN severe, chronic, intractable pain, Pharmacy: [facility] Start Date: 09/07/24 Status: Ordered pantoprazole 40 mg oral delayed release tablet Start: 06/06/24 2:48:00 PM EDT, See Instructions, Disp# 30 tab, Refills: 6, TAKE 1 TABLET BY MOUTH ONCE DAILY, Pharmacy: [facility] Start Date: 06/06/24 Status: Ordered Polysporin 500 units-10,000 units/g topical ointment Start: 11/01/23 1:55:00 PM EST, 1 appl, topical, bid, Disp# 15 g, Refills: 1, Pharmacy: [facility] Start Date: 11/01/23 Stop Date: 11/29/23 Status: Ordered potassium chloride 20 mEq oral tablet, extended release Start: 03/22/24 8:03:00 AM EDT, 1 tab, PO, bid, Disp# 60 tab, Refills: 6, Pharmacy: [facility] Start Date: 03/22/24 Stop Date: 10/18/24 Status: Ordered Salonpas Maximum Strength 4% topical film Start: 11/01/23 1:57:00 PM EST, See Instructions, Disp# 30 film, Refills: 3, do not leave patch on for more than 8 hours at a time, Pharmacy: [facility] Start Date: 11/01/23 Status: Ordered sertraline 50 mg oral tablet Start: 06/06/24 2:48:00 PM EDT, 1 tab, PO, Daily, Disp# 30 tab, Refills: 6, Pharmacy: [facility] Start Date: 06/06/24 Stop Date: 01/02/25 Status: Ordered spironolactone 25 mg oral tablet Start: 07/03/24 4:24:00 PM EDT, 1 tab, PO, Daily, Disp# 30 tab, Refills: 3, Pharmacy: [facility] Start Date: 07/03/24 Stop Date: 10/31/24 Status: Ordered Tessalon 200 mg oral capsule Start: 01/13/24 9:38:00 AM EST, 1 cap, PO, tid, Disp# 15 cap, Refills: 0, Pharmacy: [facility] Start Date: 01/13/24 Stop Date: 01/18/24 Status: Ordered Sturkie Rescue Start: 08/12/23 12:52:00 PM EDT Start Date: 08/12/23 Status: Ordered topiramate 100 mg oral tablet Start: 06/06/24 2:48:00 PM EDT, See Instructions, Disp# 90 tab, Refills: 6, TAKE ONE TABLET BY MOUTHEVERY MORNING AND TWO TABLETS AT BEDTIME., Pharmacy: [facility] Start Date: 06/06/24 Status: Ordered torsemide 20 mg oral tablet Start: 03/29/24 11:34:00 AM EDT, 2 tab, PO, Daily, Disp# 30 tab, Refills: 4, Pharmacy: [facility] Start Date: 03/29/24 Status: Ordered Vagisil 5%-2% vaginal cream Start: 04/12/24 2:27:00 PM EDT, 1 appl, topical, bid, Disp# 28 g, Refills: 0, Pharmacy: [facility] Start Date: 04/12/24 Status: Ordered Voltaren 1% topical gel Start: 08/20/24 8:05:00 PM EDT, 2 g =, topical, qid, Disp# 100 g, Refills: 2, not to exceed 16 grams/day/single joint of lower extremities, Pharmacy: [facility] Start Date: 08/20/24 Stop Date: 11/18/24 Status: Ordered Zofran 4 mg oral tablet Start: 12/02/23 11:00:00 AM EST, 1 tab, PO, q12h, Disp# 30 tab, PRN: as needed for nausea/vomiting, Pharmacy: [id number] Start Date: 12/02/23 Status: Ordered Mental Status 09/07/24 Barriers to Learning one year None evide nt Mandatory Health Literacy Documentation Yes Health Literacy Communication Barriers N ever Primary Language Swedish Problem List Condition Confirmation Course Effective Dates Status H ealth Status Informant Anemia Confirmed Active Anxiety Confirmed Active Arthritis Confirmed Active Ingrown toenail of both feet Confirmed Active Bronchiectasis Confirmed Active Chronic back pain Confirmed Active CKD (chronic kidney disease), stage IV Confirmed Active Chronic respiratory failure Confirmed Active Chronic right heart failure Confirmed Active CHF (congestive heart failure) Confirmed Active Coronary artery disease Confirmed Active [...] dysfunction Confirmed Active 1sees endocrine - Fidelia 2on 5L O2 qHS per Dr. Mcgee 3DrFidelia Calle 4URINE, >100 THOUSAND COLONIES/ML ESCHERICHIA COLI This organism produces an extended-spectrum beta-lactamase (ESBL), Date of Service: September 12, 2023 12:54 EDT 5Steve Kimo - ANTHONY pulmonary Diagnosis Diagnosis Type Effective Dates Health Status Clinical Service Informant Ambulatory dysfunction Discharge Diagnosis 09/07/24 Non-Specified CHF (congestive heart failure) Discharge Diagnosis 09/07/24 Non-Specified Chronic respiratory failure Discharge Diagnosis 09/07/24 Non-Specified Procedures Procedure Date Related Diagnosis Body Site [...] and an infectious/inflammatory process cannot be excluded. [id number] 25stg 4 ovarian cancer Social History Social History Type Response Tobacco 1 Smoking Status Never smoked cigaret charito Sex Female Sex Representation Female (finding) 1none Patient Care team information Care Team Personnel Name: DO Davila Amanda Position: Resident Member Role: Lifetime Relationship Address: [address] [place] [address] [place] Name: DO Chappell Sameer Position: Resident Member Role: Lifetime Relationship Address: [address] [place] [address] [place] Name: MONISHA Baltazar Christina L Position: Physician - Podiatry Member Role: Lifetime Relationship Address: [address] [place] [address] [place] Name: MD Mcgee Madhavi Position: Physician - Family Med Member Role: Primary Care Provider Address: [address] [place] [address] Care Team Related Persons Name: CÉSAR NICOLE
[2024-09-15 03:09] LABS: Base Excess VBG 2.4 mEq/L; HCO3 VBG 30 mmol/L; Oxygen Saturation VBG 86.7 %; PCO2 VBG 58 mmHg (38-50); PO2 VBG 52 mmHg; pH VBG 7.32 (7.36-7.41)
[2024-09-15 03:32] LABS: BUN Creatinine Ratio 17.9 (10-20); Calcium 8.7 mg/dl (8.6-10.3); Magnesium 1.9 mg/dl (1.7-2.4); Potassium 5.2 mmol/L (3.5-5.1)
[2024-09-15] MEDS: LEVOTHYROXINE SODIUM 75 MCG TABLET PO SCH (06:13)
[2024-09-15] MEDS: PANTOprazole 40 MG TAB PO SCH (06:13)
[2024-09-15 06:59] LABS: Base Excess VBG 4.9 mEq/L; HCO3 VBG 33 mmol/L; Oxygen Saturation VBG 66.7 %; PCO2 VBG 63 mmHg (38-50); PO2 VBG 36 mmHg; pH VBG 7.32 (7.36-7.41)
[2024-09-15 07:06] LABS: Basophils # (auto) 0.01 K/uL (0.00-0.20); Basophils % (auto) 0.1 %; Eosinophils # (auto) 0.01 K/uL (0.00-0.50); Eosinophils % (auto) 0.1 %; Hematocrit (blood only) 36.1 % (37.0-47.0); Hemoglobin 10.6 g/dl (12.0-16.0); Immature Granulocytes # (auto) 0.05 K/uL (0.01-0.20); Immature Granulocytes % (auto) 0.6 %; Lymphocytes # (auto) 0.97 K/uL (1.20-3.40); Lymphocytes % (auto) 10.8 %; Mean Corpuscular Hemoglobin 27.1 pg (25.0-34.0); Mean Corpuscular Hgb Conc 29.4 g/dL (32.0-36.0); Mean Corpuscular Volume 92.3 fL (80.0-100.0); Mean Platelet Volume 9.7 fL (9.4-12.4); Monocytes # (auto) 0.55 K/uL (0.11-0.59); Monocytes % (auto) 6.1 %; Neutrophils # (auto) 7.38 K/uL (1.40-6.50); Neutrophils % (auto) 82.3 %; Platelet Count 239 K/uL (130-400); RDW Coefficient of Variation 15.9 % (11.5-14.5); RDW Standard Deviation 54.5 fL (36.4-46.3); Red Blood Count 3.91 M/uL (4.20-5.40); White Blood Count 8.97 K/ul (4.8-10.8)
[2024-09-15] MEDS: MAGNESIUM OXIDE 400 MG TAB PO SCH (10:15)
[2024-09-15] MEDS: ISOSORBIDE MONO EXTENDED REL 60 MG TABCR PO SCH (10:15)
[2024-09-15] MEDS: EMPAGLIFLOZIN 10 MG TAB PO SCH (10:16)
[2024-09-15] MEDS: SERTRALINE HCL 50 MG TABLET PO SCH (10:16)
[2024-09-15] MEDS: ASPIRIN 81 MG ECTAB PO SCH (10:16)
[2024-09-15] MEDS: TOPIRAMATE 100 MG TAB PO SCH (10:16)
[2024-09-15] MEDS: MULTIVITAMIN TAB PO SCH (10:16)
[2024-09-15] MEDS: SPIRONOLACTONE 25 MG TAB PO SCH (10:16)
[2024-09-15] MEDS: FAMOTIDINE 20 MG TAB PO PRN (10:17)
[2024-09-15] MEDS: FOLIC ACID 1 MG TAB PO SCH (10:17)
[2024-09-15] MEDS: AZITHROMYCIN 250 MG TAB PO SCH (10:18)
[2024-09-15] MEDS: buPROPion SR 100 MG TABCR PO SCH (10:18)
[2024-09-15] MEDS: MICONAZOLE NITRATE POWDER 85 GM TOP SCH (10:19)
[2024-09-15] MEDS: LANTUS PER UNIT CHARGE SC SCH ×2 (10:27→19:44)
--- NOTE | 2024-09-15 10:28 | Pharmacy Report ---
Pharmacy Glycemic Short Note 2 - Date of Service September 15, 2024 - Glycemic Short BSG Results (Last 24 hours): 09/14/24 09/14/24 09/14/24 13:28 17:03 19:36 Glucose 173 H POC Glucose 143 H 173 H 09/15/24 09/15/24 02:45 07:19 Glucose 233 H POC Glucose 188 H OUTPATIENT ANTIDIABETIC REGIMEN: * Novolog insulin pump- 253units/day, basal 5-5.5 unit/hr, CR 1:3, CF 10mg/dl/unit HbA1C: 7% (08/13/24) ASSESSMENT: * Pt is a 69 year old female well known to glycemic pharmacy service admitted with acute hypoxic respiratory failure and hypoxia. History of DM2 on an insulin pump @ home. Pharmacy consulted to assist with inpatient glycemic management. * Pump was turned off due to mental status yesterday afternoon. BSGs [phone]/dL. Received 4 units of bolus insulin last evening and 25 units of basal after pump turned off. * Receiving steroids (solu medrol 40mg IV BID), and diet ordered. * Lantus 50 units this AM with a scaled HS dose depending on BSG (30/40/50 units). Typically requires 100 units/day of SQ basal while admitted. Novolog / to start based on home/historic inpatient parameters- may need tightened further pending BSG trend. PLAN FOR INPATIENT GLYCEMIC CONTROL: * Hold outpatient oral diabetes medications * Basal insulin * Lantus 50 units qAM + HS scale (30, 40 or 50 units) depending on BSG * Bolus insulin * NovoLog per scale ACHS or Q6hrs while NPO * Goal Range: Low 110 mg/dL - High 140 mg/dL * Correction Factor: 10 mg/dL/unit * Nutritional / Prandial insulin per carb ratio of 1 unit per 3 grams CHO consumed
[2024-09-15] MEDS: SODIUM CHLOR 7% 4 ML NEB NEB SCH (11:00)
[2024-09-15 11:03] LABS: Base Excess VBG 1.7 mEq/L; HCO3 VBG 29 mmol/L; Oxygen Saturation VBG 83.6 %; PCO2 VBG 54 mmHg (38-50); PO2 VBG 50 mmHg; pH VBG 7.33 (7.36-7.41)
[2024-09-15] MEDS ORDERED: NALOXONE HCL 0.4 MG/1 ML VIAL/CARP IV PRN (11:39)
--- NOTE | 2024-09-15 11:39 | Hospitalist Progress Note ---
Date of Service September 15, 2024 Assessment & Plan (1) Acute respiratory failure with hypoxia: Plan: Acute hypoxic hypercapnic respiratory failure Patient does not normally use daytime oxygen, uses 8 L of oxygen at night. Is requiring 2 L via trach collar on admission Suspect combination of acute on chronic CHF/cor pulmonale with 20 kg of additional weight from prior dry weight, although chest x-ray is not overtly overloaded and patient is with scattered wheezing likely also has a superimposed COPD exacerbation (2) Acute diastolic (congestive) heart failure: Plan: Acute on chronic diastolic heart failure, cor pulmonale Last known dry weight approximately 160-164 kg. Admitting weight 180 kg Does endorse progressively worsening orthopnea, and swelling of the lower extremities Chest x-ray: No overt edema Patient is on torsemide 40 mg at bedtime at home. Continued on Lasix 40 mg IV twice daily on admission BNP mildly elevated at 135, last 42 05/2024 Creatinine baseline approximately 1.51.8. Creatinine on admission 1.37creatinine remained stable. Significantly above dry weight, diuresis continued twice daily (3) COPD with acute exacerbation: Plan: Acute on chronic COPD exacerbation Patient has felt feverish with some chills and increased cough and change in sputum quality in the last few days. No signs of pneumonia on x-ray, there is no leukocytosis. Respiratory bio fire is pending. Covered with azithromycin for COPD. exacerbation on admission. No QT prolongation on admitting EKG With scattered wheezing on ER assessment Patient received methylprednisolone 125 mg x 1 and magnesium x 1, albuterol x 1 in the ER with improvement Afebrile., No leukocytosis Continue methylprednisolone 40 mg twice daily, will wean to daily 09/16 DuoNebs every 4 hours Flutter valve, incentive spirometry Guaifenesin ordered Titrate oxygen to goal 89%. Do not hyper oxygenate due to COPD physiology VBG 7.2 / suggestive of acute respiratory acidosis. The patient has a Christophe trach w/o cuff. Discussed with pulmonary and respiratory therapy on admission. Patient appears greatly improved at the bedside, is alert oriented and with improved breathing following nebulizer treatments. Will repeat blood gas and trend. If she is worsening then would need transfer to the ICU at that time for either trach exchange with cuff to allow for PPV versus intubation. Will admit to PCU for now and follow serial blood gases and clinical progression. 09/15/2024 VBG improving, near normal 7.33/54/50/29. Mentation normal. Current care continue (4) Diabetic retinopathy associated with type 2 diabetes mellitus: Plan: Type 2 diabetes With history of labile hypoglycemia SSI ordered with pharmacy glycemic consult due to concurrent steroid use Glucose checks ACHS Type II DM/heart healthy diet Plan Chronic pain Continued home oxycodone, hold for narcosis. Narcan available on-call if needed DVT prophylaxis: Lovenox Disposition: PCU CODE STATUS: Full code Diet: Heart healthy/DM2 Admission and Anticipated Discharge Date Admission Date: September 14, 2024 Subjective Seen at the bedside this morning. Still feels volume overloaded, still has some shortness of breath positionally but improved. Does not feel confused this morning. Denies pain. No fever chills or sweats overnight. Still endorses some intermittent wheezing, but again feels her breathing has improved Physical Exam Physical Exam: General: A&Ox3. NAD. Cooperative. HEENT: Atraumatic, normocephalic. Christophe tracheostomy tube in place without surrounding purulence discharge or erythema Pulm: Diminished, minimal end expiratory wheezing, slight bibasilar crackles Cardiac: RRR, -mrg. Radial pulses intact and symmetrical. Abdominal: Nontender, nondistended, soft. BS present. Extremities: Diffuse pitting edema through the lower extremities bilaterally Results & Data Results & Data Vital Signs (Past 12 Hours) Vital Signs Temp Pulse Resp BP Pulse Ox O2 Del Method O2 Flow Rate 09/15/24 11:27 36.7 C 71 18 118/67 93 Room Air 09/15/24 11:05 Trach Collar 09/15/24 11:01 78 20 90 Room Air 09/15/24 08:10 70 20 90 Room Air 09/15/24 07:41 36.6 C 77 18 108/67 90 Room Air 09/15/24 04:31 36.5 C 75 20 136/88 94 Trach Collar 6 09/15/24 01:12 79 18 98 Trach Collar 6 FiO2 09/15/24 11:27 09/15/24 11:05 09/15/24 11:01 09/15/24 08:10 09/15/24 07:41 09/15/24 04:31 28 09/15/24 01:12 28 PG Care Time/CCT Total # of Minutes Spent Total Time Spent with Patient: Total time spent is greater than 50% in coordination of care (as documented) at patient's floor/unit and/or counseling patient: Coding Level of Care Code 29341 SUB INP/OBS CARE 350MIN Diagnoses Acute respiratory failure with hypoxia J96.01 Acute diastolic (congestive) heart failure I50.31 COPD with acute exacerbation J44.1 Diabetic retinopathy associated with type 2 diabetes mellitus E11.319
[2024-09-15] MEDS: MAGNESIUM SULFATE / D5W 1 GM/100 ML BAG IV ONE (14:23)
[2024-09-15 15:00] LABS: Calcium 8.8 mg/dl (8.6-10.3); Creatinine Clr Calc Pharmacy 58.7 ml/min; Potassium 4.8 mmol/L (3.5-5.1)
[2024-09-15 15:16] LABS: Thyroid Stimulating Hormone 1.81 uIu/ml (0.300-4.500)
[2024-09-15] MEDS: oxyCODONE HCL IR 5 MG TAB (IMMEDIATE RELEASE) PO PRN (15:24)
[2024-09-15] MEDS: ENOXAPARIN 80 MG/0.8 ML SYR SQ SCH (19:42)
[2024-09-15] MEDS ORDERED: ENOXAPARIN 1 MG/KG SQ SCH (21:00)
[2024-09-16 06:45] LABS: Basophils # (auto) 0.01 K/uL (0.00-0.20); Basophils % (auto) 0.1 %; Eosinophils # (auto) 0.01 K/uL (0.00-0.50); Eosinophils % (auto) 0.1 %; Hematocrit (blood only) 38.2 % (37.0-47.0); Immature Granulocytes # (auto) 0.06 K/uL (0.01-0.20); Immature Granulocytes % (auto) 0.7 %; Lymphocytes # (auto) 1.43 K/uL (1.20-3.40); Lymphocytes % (auto) 16.5 %; Mean Corpuscular Hgb Conc 28.8 g/dL (32.0-36.0); Mean Corpuscular Volume 93.6 fL (80.0-100.0); Mean Platelet Volume 9.8 fL (9.4-12.4); Monocytes # (auto) 0.72 K/uL (0.11-0.59); Monocytes % (auto) 8.3 %; Neutrophils # (auto) 6.42 K/uL (1.40-6.50); Neutrophils % (auto) 74.3 %; Platelet Count 246 K/uL (130-400); RDW Coefficient of Variation 15.9 % (11.5-14.5); RDW Standard Deviation 54.3 fL (36.4-46.3); Red Blood Count 4.08 M/uL (4.20-5.40); White Blood Count 8.65 K/ul (4.8-10.8)
[2024-09-16 07:05] LABS: BUN Creatinine Ratio 21.9 (10-20); Calcium 8.8 mg/dl (8.6-10.3); Creatinine Clr Calc Pharmacy 53.4 ml/min; Potassium 4.5 mmol/L (3.5-5.1)
--- NOTE | 2024-09-16 07:28 | Electrocardiogram Report ---
Test Reason : Blood Pressure : */* mmHG Vent. Rate : 72 BPM Atrial Rate : 256 BPM P-R Int : * ms QRS Dur : 130 ms QT Int : 418 ms P-R-T Axes : * -53 -6 degrees QTcB Int : 457 ms Atrial flutter with variable A-V block Right bundle branch block Left anterior fascicular block Bifascicular block Abnormal ECG When compared with ECG of 14-Sep-2024 13:24, Atrial flutter has replaced Sinus rhythm Confirmed by Rahul Quiroz ([id number]) on 09/16/2024 7:27:52 AM Referred By: REFERRED SELF Confirmed By: Rahul Quiroz
[2024-09-16] MEDS: FUROSEMIDE 40 MG/4 ML VIAL IV SCH (10:08)
--- NOTE | 2024-09-16 11:48 | Hospitalist Progress Note ---
Date of Service September 16, 2024 Assessment & Plan (1) Acute respiratory failure with hypoxia: Plan: Acute hypoxic hypercapnic respiratory failure Patient does not normally use daytime oxygen, uses 8 L of oxygen at night. Is requiring 2 L via trach collar on admission Suspect combination of acute on chronic CHF/cor pulmonale with 20 kg of additional weight from prior dry weight, although chest x-ray is not overtly overloaded and patient is with scattered wheezing likely also has a superimposed COPD exacerbation (2) Acute diastolic (congestive) heart failure: Plan: Acute on chronic diastolic heart failure, cor pulmonale Last known dry weight approximately 160-164 kg. Admitting weight 180 kg. Suspect this was an error from bed weight, patient has had a net output of 5.2 L since admission and morning weight today is 168.4 kg. On the last remains total body fluid overloaded, pulmonary status is greatly improved and is nearing her dry weight. Does endorse progressively worsening orthopnea, and swelling of the lower extremities [employer] Chest x-ray: No overt edema BNP mildly elevated at 135, last 42 05/2024 Creatinine baseline approximately 1.51.8. Slight rise in creatinine but still within her normal range today, and with total body overload. Lasix decreased from twice daily to daily. Pulmonary status near baseline. Suspect may be able to be discharged on home oral diuretics as early as 09/17 if she continues to progress well (3) New onset atrial flutter: Plan: New onset atrial flutter Previously follows with [facility] cardiology for CHF, last echo with EF 60- 65%. No prior history of A-fib/a flutter Multiple provoking factors including acute illness, steroids, chronic hypercapnia and hypoventilation without using PPV Anticoagulated with Lovenox on admission. Patient is a do a candidate for discharge; patient is with elevated BMI, however she is not a good warfarin candidate could consider ongoing Lovenox as alternative but again due to high BMI would either be a 150+ milligram dose twice daily vs split QID. Currently adequately rate controlled, metoprolol continued Magnesium optimized Troponin is normal TSH is normal (4) COPD with acute exacerbation: Plan: Acute on chronic COPD exacerbation Patient has felt feverish with some chills and increased cough and change in sputum quality in the last few days. No signs of pneumonia on x-ray, there is no leukocytosis. Respiratory bio fire is pending. Covered with azithromycin for COPD. exacerbation on admission. No QT prolongation on admitting EKG With scattered wheezing on ER assessment Patient received methylprednisolone 125 mg x 1 and magnesium x 1, albuterol x 1 in the ER with improvement Afebrile., No leukocytosis DuoNebs every 4 hours Flutter valve, incentive spirometry Guaifenesin ordered Titrate oxygen to goal 89%. Do not hyper oxygenate due to COPD physiology VBG 7.2 / suggestive of acute respiratory acidosis. The patient has a Christophe trach w/o cuff. Discussed with pulmonary and respiratory therapy on admission. Patient appears greatly improved at the bedside, is alert oriented and with improved breathing following nebulizer treatments. Will repeat blood gas and trend. If she is worsening then would need transfer to the ICU at that time for either trach exchange with cuff to allow for PPV versus intubation. Will admit to PCU for now and follow serial blood gases and clinical pro gression. 09/15/2024 VBG improving, near normal 7.33/54/50/29. Mentation normal. Subsequently remained stable.\ Breathing and wheeze greatly improved 09/16, steroids narrowed to IV daily. If continuing to do well, convert to prednisone 09/17 for short taper (5) Diabetic retinopathy associated with type 2 diabetes mellitus: Plan: Type 2 diabetes With history of labile hypoglycemia SSI ordered with pharmacy glycemic consult due to concurrent steroid use Glucose checks ACHS Type II DM/heart healthy diet Plan Chronic pain Continued home oxycodone, hold for narcosis. Narcan available on-call if needed DVT prophylaxis: Lovenox Disposition: PCU CODE STATUS: Full code Diet: Heart healthy/DM2 Admission and Anticipated Discharge Date Admission Date: September 14, 2024 Subjective Viviana is seen at the bedside. She feels greatly improved from admission. Volume status is greatly improved, weight today 168.4 kg. Suspect original weight of 180 kg was erroneous with bed merits treatment, however is still significantly above her normal dry weight of around 162-164 kg. Slight rise in renal function but still within range of normal and with significant total body edema. No shortness of breath lightheadedness dizziness cough chest pain or chest pressure last night. No bleeding. Reviewed w/ telemetry. Remains in afib/flutter over. Rates 70s overnight. Physical Exam Physical Exam: General: A&Ox3. NAD. Cooperative. HEENT: Atraumatic, normocephalic. Christophe tracheostomy tube in place without surrounding purulence discharge or erythema Pulm: Diminished, no wheezing today, slight bibasilar crackles Cardiac: irir, distant heart sounds soft sm. Radial pulses intact and symmetrical. Abdominal: Nontender, nondistended, soft. BS present. Extremities: Diffuse pitting edema through the lower extremities bilaterally Results & Data Results & Data Vital Signs (Past 12 Hours) Vital Signs Temp Pulse Resp BP Pulse Ox O2 Del Method O2 Flow Rate 09/16/24 11:29 36.7 C 76 18 116/73 94 Room Air 09/16/24 09:37 Trach Collar 6 09/16/24 07:45 72 18 97 Trach Collar 6 09/16/24 07:39 36.6 C 72 18 147/73 H 93 Trach Collar 6 09/16/24 02:54 36.6 C 71 22 129/69 95 Trach Collar 09/16/24 00:56 77 18 93 Trach Collar 6 FiO2 09/16/24 11:29 09/16/24 09:37 09/16/24 07:45 28 09/16/24 07:39 09/16/24 02:54 09/16/24 00:56 28 PG Care Time/CCT Total # of Minutes Spent Total Time Spent with Patient: Total time spent is greater than 50% in coordination of care (as documented) at patient's floor/unit and/or counseling patient: Coding Level of Care Code 47981 SUB INP/OBS CARE 3/50MIN Diagnoses Acute respiratory failure with hypoxia J96.01 Acute diastolic (congestive) heart failure I50.31 New onset atrial flutter I48.92 COPD with acute exacerbation J44.1 Diabetic retinopathy associated with type 2 diabetes mellitus E11.319
[2024-09-16 15:07] LABS: iSTAT Creatinine 1.5 mg/dl (0.6-1.3); iSTAT Hemoglobin 13.9 g/dl (12.0-16.0); iSTAT Ionized Calcium 1.2 mmol/l (1.12-1.32); iSTAT Potassium 4.9 mmol/L (3.3-5.0)
[2024-09-16] MEDS ORDERED: SODIUM CHLOR 7% 4 ML NEB NEB PRN (18:22)
[2024-09-16] MEDS: APIXABAN 5 MG TABLET PO SCH (20:29)
[2024-09-17 06:39] LABS: Basophils # (auto) 0.01 K/uL (0.00-0.20); Basophils % (auto) 0.1 %; Hematocrit (blood only) 36.3 % (37.0-47.0); Hemoglobin 10.8 g/dl (12.0-16.0); Immature Granulocytes # (auto) 0.05 K/uL (0.01-0.20); Immature Granulocytes % (auto) 0.5 %; Lymphocytes # (auto) 1.07 K/uL (1.20-3.40); Lymphocytes % (auto) 11.6 %; Mean Corpuscular Hemoglobin 27.1 pg (25.0-34.0); Mean Corpuscular Hgb Conc 29.8 g/dL (32.0-36.0); Mean Corpuscular Volume 91.2 fL (80.0-100.0); Mean Platelet Volume 10.1 fL (9.4-12.4); Monocytes # (auto) 0.57 K/uL (0.11-0.59); Monocytes % (auto) 6.2 %; Neutrophils % (auto) 81.6 %; Platelet Count 235 K/uL (130-400); RDW Coefficient of Variation 15.8 % (11.5-14.5); RDW Standard Deviation 53.6 fL (36.4-46.3); Red Blood Count 3.98 M/uL (4.20-5.40)
[2024-09-17 07:09] LABS: BUN Creatinine Ratio 27.5 (10-20); Calcium 8.7 mg/dl (8.6-10.3); Creatinine Clr Calc Pharmacy 55.9 ml/min; Potassium 4.4 mmol/L (3.5-5.1)
--- NOTE | 2024-09-17 09:58 | Pharmacy Report ---
Pharmacy Glycemic Short Note 2 - Date of Service September 17, 2024 - Glycemic Short BSG Results (Last 24 hours): 09/14/24 09/16/24 09/16/24 14:06 11:02 16:14 Glucose POC Glucose 154 H 125 H POC Glucose (other) 159 H 09/16/24 09/17/24 09/17/24 20:21 05:54 07:30 Glucose 124 H POC Glucose 169 H 114 H POC Glucose (other) OUTPATIENT ANTIDIABETIC REGIMEN: * Novolog insulin pump- 253units/day, basal 5-5.5 unit/hr, CR 1:3, CF 10mg/dl/unit HbA1C: 7% (08/13/24) ASSESSMENT: 09/17: * BSGs within goal the last 24h: [phone]/dL. Received 75 units of basal and 62 units of bolus insulin yesterday. * Tolerating diet, continues on Solu Medrol 40mg IV BID. * Noted patient prefers BSGs ~ 150mg/dL yesterday. Novolog parameters loosened and HS Lantus scale decreased. Continue same for now. 09/15: * Pt is a 69 year old female well known to glycemic pharmacy service admitted with acute hypoxic respiratory failure and hypoxia. History of DM2 on an insulin pump @ home. Pharmacy consulted to assist with inpatient glycemic management. * Pump was turned off due to mental status yesterday afternoon. BSGs 364-655-768fg/dL. Received 4 units of bolus insulin last evening and 25 units of basal after pump turned off. * Receiving steroids (solu medrol 40mg IV BID), and diet ordered. * Lantus 50 units this AM with a scaled HS dose depending on BSG (30/40/50 units). Typically requires 100 units/day of SQ basal while admitted. Novolog 08/23 to start based on home/historic inpatient parameters- may need tightened further pending BSG trend. PLAN FOR INPATIENT GLYCEMIC CONTROL: * Hold outpatient oral diabetes medications * Basal insulin * Lantus 50 units qAM + HS scale (25, 35 units) depending on BSG * Bolus insulin * NovoLog per scale ACHS or Q6hrs while NPO * Goal Range: Low 110 mg/dL - High 140 mg/dL * Correction Factor: 12 mg/dL/unit * Nutritional / Prandial insulin per carb ratio of 1 unit per 3.5 grams CHO consumed
--- NOTE | 2024-09-17 11:27 | Hospitalist Progress Note ---
Date of Service September 17, 2024 Assessment & Plan (1) Acute respiratory failure with hypoxia: Plan: Supplemental oxygen per nasal cannula to maintain saturation greater than 90%. Wean down to her usual home oxygen usage as tolerated. Treat underlying CHF exacerbation (2) Acute diastolic (congestive) heart failure: Plan: Acute on chronic diastolic heart failure, chronic cor pulmonale. Diuresing nicely with parenteral Lasix therapy. (3) New onset atrial flutter: Plan: follows with [facility] cardiology for CHF, last echo with EF 60-65%. No prior history of A-fib/a flutter. Rate is controlled. She is now on Eliquis. Telemetry (4) COPD with acute exacerbation: Plan: Present on admission. Much improved with parenteral steroid therapy. Will be switched to oral prednisone tapering dose at the time of discharge. (5) Diabetic retinopathy associated with type 2 diabetes mellitus: Plan: ADA diet. Sliding scale coverage as needed. Plan Hopeful discharge to home tomorrow, September 18 Admission and Anticipated Discharge Date Admission Date: September 14, 2024 Subjective Alert and pleasant. No distress. Continue to brisk diuresis with parenteral Lasix therapy. She is now on Eliquis. Intravenous Solu-Medrol will be switched to a prednisone tapering dose at the time of discharge. Apparently, her lift chair is broken and she will have a new one delivered today or tomorrow. Hopefully she can go home tomorrow, September 18 Review of Systems 2 Review of Systems: Constitutionalno fever or chills ENTno blurred vision, no double vision, no epistaxis, no sore throat Respiratoryno cough, no wheezing, no shortness of breath Cardiacno palpitations, no chest pain, no syncope Estrella nausea, vomiting, diarrhea, melena, hematochezia GUno urinary retention, no urinary incontinence, no dysuria, no hematuria Musculoskeletalno joint pain, no muscle tenderness Skinno bruising, no rashes, no pruritus Neurono isolated weakness, no paresthesia, no weakness Psychno depression, no anxiety Physical Exam 2 Physical Exam: General-alert and oriented x3, no fever, no chills. Morbidly obese HEENT-head atraumatic and normocephalic, pupils equal and reactive to light, extraocular muscles intact Neck-no lymphadenopathy or thyromegaly, trachea midline. Tracheostomy in place Chest-diminished breath sounds bilaterally. No audible wheezing. No inspiratory rales. Cardiac-distant heart tones. Regular rate and rhythm, normal S1 and S2 Abdomen-normal bowel sounds, no hepatosplenomegaly Extremities-chronic appearing mild peripheral edema bilaterally below the knees Neuro-cranial nerves II through XII intact, motor and sensory function within normal limits, strength symmetrical, no focal deficits Psych-normal affect, normal mood Results & Data Results & Data Vital Signs (Past 12 Hours) Vital Signs Temp Pulse Pulse Resp BP Pulse Ox Pulse Ox 09/17/24 10:57 60 09/17/24 08:00 09/17/24 08:00 96 09/17/24 08:00 36.8 C 78 18 129/69 98 09/17/24 07:14 60 22 98 09/17/24 03:19 36.5 C 61 18 142/77 H 97 09/17/24 01:12 68 18 97 09/17/24 00:00 96 09/16/24 23:39 36.9 C 64 20 143/73 H 96 O2 Del Method O2 Del Method O2 Flow Rate O2 Flow Rate FiO2 09/17/24 10:57 09/17/24 08:00 Trach Collar 7 28 09/17/24 08:00 Trach Collar 7 09/17/24 08:00 Trach Collar 7 09/17/24 07:14 Trach Collar 28 09/17/24 03:19 Trach Collar 7 09/17/24 01:12 Trach Collar 6 09/17/24 00:00 Trach Collar 7 09/16/24 23:39 Trach Collar 7 Laboratory Results 09/17/24 05:54 09/17/24 05:54 PG Care Time/CCT Total # of Minutes Spent Total Time Spent with Patient: Total time spent is greater than 50% in coordination of care (as documented) at patient's floor/unit and/or counseling patient: Coding Level of Care Code 14135 SUB INP/OBS CARE 3/50MIN Diagnoses Acute respiratory failure with hypoxia J96.01 Acute diastolic (congestive) heart failure I50.31 New onset atrial flutter I48.92 COPD with acute exacerbation J44.1 Diabetic retinopathy associated with type 2 diabetes mellitus E11.319
--- NOTE | 2024-09-17 12:53 | Electrocardiogram Report ---
Test Reason : Blood Pressure : */* mmHG Vent. Rate : 76 BPM Atrial Rate : 76 BPM P-R Int : 262 ms QRS Dur : 106 ms QT Int : 376 ms P-R-T Axes : 35 -60 -26 degrees QTcB Int : 423 ms Sinus rhythm with 1st degree A-V block Left axis deviation Incomplete right bundle branch block Poor R wave progression, consider anterior NV vs. lead placement vs. LVH When compared with ECG of 15-Sep-2024 13:08, Sinus rhythm has replaced Atrial flutter Incomplete right bundle branch block has replaced Right bundle branch block Confirmed by Rahul Quiroz ([id number]) on 09/17/2024 12:53:12 PM Referred By: REFERRED SELF Confirmed By: Rahul Quiroz
[2024-09-18 06:17] LABS: Hematocrit (blood only) 36.9 % (37.0-47.0); Mean Corpuscular Hgb Conc 29.8 g/dL (32.0-36.0); Mean Corpuscular Volume 90.4 fL (80.0-100.0); Mean Platelet Volume 10.1 fL (9.4-12.4); Platelet Count 242 K/uL (130-400); RDW Coefficient of Variation 15.7 % (11.5-14.5); RDW Standard Deviation 52.2 fL (36.4-46.3); Red Blood Count 4.08 M/uL (4.20-5.40); White Blood Count 10.55 K/ul (4.8-10.8)
[2024-09-18 06:33] LABS: Creatinine Clr Calc Pharmacy 50.3 ml/min
[2024-09-18 07:16] VITALS: O2SAT 95
[2024-09-18 08:06] VITALS: RESP 20
--- NOTE | 2024-09-18 11:29 | Pharmacy Report ---
Pharmacy Glycemic Short Note 2 - Date of Service September 18, 2024 - Glycemic Short BSG Results (Last 24 hours): 09/17/24 09/17/24 09/18/24 16:29 19:56 07:22 POC Glucose 140 H 178 H 99 OUTPATIENT ANTIDIABETIC REGIMEN: * Novolog insulin pump - 253units/day, basal 5-5.5 unit/hr, CR 1:3, CF 10mg/dl/unit HbA1C: 7% (08/13/24) ASSESSMENT: 09/18: * Whit received 138 units of insulin yesterday, 75 basal + 63 bolus. BSGs were: [phone] mg/dL. * Fasting BSG this AM was below goal at 99 mg/dL. Basal will need reduced today. * Steroids were converted from Solu Medrol 40 mg IV BID to Prednisone 10 mg PO TID. Patient did received 40 mg of IV Solu Medrol this AM which is equivalent to 50 mg of PO prednisone so today will represent a 30% reduction in steroid dose. Given this and fasting below goal, will reduce basal by 20% today. * Novolog was loosened yesterday so will follow postprandials today to see if another reduction is necessary given decreased steroid dose. 09/17: * BSGs within goal the last 24h: [phone]/dL. Received 75 units of basal and 62 units of bolus insulin yesterday. * Tolerating diet, continues on Solu Medrol 40mg IV BID. * Noted patient prefers BSGs ~ 150mg/dL yesterday. Novolog parameters loosened and HS Lantus scale decreased. Continue same for now. 09/15: * Pt is a 69 year old female well known to glycemic pharmacy service admitted wi th acute hypoxic respiratory failure and hypoxia. History of DM2 on an insulin pump @ home. Pharmacy consulted to assist with inpatient glycemic management. * Pump was turned off due to mental status yesterday afternoon. BSGs 668-103-001ps/dL. Received 4 units of bolus insulin last evening and 25 units of basal after pump turned off. * Receiving steroids (solu medrol 40mg IV BID), and diet ordered. * Lantus 50 units this AM with a scaled HS dose depending on BSG (30/40/50 units). Typically requires 100 units/day of SQ basal while admitted. Novolog 08/23 to start based on home/historic inpatient parameters- may need tightened further pending BSG trend. PLAN FOR INPATIENT GLYCEMIC CONTROL: * Jardiance 10 mg PO daily * Basal insulin * Lantus 50 units SC AM * Lantus 10-15 units SC HS (dependent on BSG) * Bolus insulin * NovoLog per scale ACHS or Q6hrs while NPO * Goal Range: Low 120 mg/dL - High 150 mg/dL * Correction Factor: 12 mg/dL/unit * Nutritional / Prandial insulin per carb ratio of 1 unit per 3.5 grams CHO consumed
[2024-09-18 11:34] VITALS: BP 150/84; PULSE 62; TEMP 99.3
--- NOTE | 2024-09-18 12:32 | Discharge Summary ---
Discharge Summary Date of Service September 18, 2024 Principal Dx & Hospital Course #1 = Principal Diagnosis (1) Acute respiratory failure with hypoxia: Supplemental oxygen per nasal cannula to maintain saturation greater than 90%. Wean down to her usual home oxygen usage as tolerated. Treat underlying CHF exacerbation (2) Acute diastolic (congestive) heart failure: Acute on chronic diastolic heart failure, chronic cor pulmonale. Treated while hospitalized with parenteral Lasix therapy (3) New onset atrial flutter: follows with [facility] cardiology for CHF, last echo with EF 60-65%. No prior history of A-fib/a flutter. She has converted back to normal sinus rhythm and is now on Eliquis. Telemetry while hospitalized (4) COPD with acute exacerbation: Present on admission. Treated while hospitalized with parenteral steroid therapy. Will be switched to oral prednisone tapering dose at the time of discharge. (5) Diabetic retinopathy associated with type 2 diabetes mellitus: ADA diet. Sliding scale coverage as needed. Plan Home today, September 18 Admission HPI Per Admitting Provider Megan is a 69-year-old female with a past medical history of chronic hypoxic respiratory failure tracheostomy dependent, RASHAAD, OHS, cor pulmonale, COPD, insulin-dependent diabetes mellitus, and chronic nonweightbearing of her right lower extremity due to nonhealing fracture who presented to the ER with acute worsening shortness of breath, over 15 kg of weight gain from her previously known dry weight, intermittent cough and daytime oxygen requirement which is not typical for her and she is recommended for admission for acute on chronic heart failure with weakness limiting her abilities to perform activities of daily living. Viviana is seen at the bedside. She reports that over the last several weeks she has had a significant amount of progressive weight gain, fluid buildup in her legs, and worsening orthopnea. In addition to this in the last week she has had a feeling of fever, chills, increased wheezing, thickened sputum production, and increased cough which caused her to present to the ER. She does not use PPV at home. She denies chest pain at any point. Reports she has been taking her home medications. Denies chest pressure. No lightheadedness or dizziness. She expresses an understanding that if her hypercapnia/acidosis worsens she would need a trach exchange versus intubation and options will not help with this process, is agreeable to this if needed. Full code. Social history reviewed Discharge Exam General-alert and oriented x3, no fever, no chills. Morbidly obese HEENT-head atraumatic and normocephalic, pupils equal and reactive to light, extraocular muscles intact Neck-no lymphadenopathy or thyromegaly, trachea midline. Tracheostomy in place Chest-diminished breath sounds bilaterally. No audible wheezing. No inspiratory rales. Cardiac-distant heart tones. Regular rate and rhythm, normal S1 and S2 Abdomen-normal bowel sounds, no hepatosplenomegaly Extremities-chronic appearing mild peripheral edema bilaterally below the knees Neuro-cranial nerves II through XII intact, motor and sensory function within n ormal limits, strength symmetrical, no focal deficits Psych-normal affect, normal mood Discharge Plan Discharge Items Patient Disposition: Home - Self-Care Reason For Visit: [facility] COPD, [facility] CHFPEF Discharge Diagnosis: Acute on chronic diastolic CHF, acute on chronic respiratory failure, new onset atrial flutter with subsequent conversion to normal sinus rhythm, acute exacerbation COPD Activity: Resume your previous activity Non-emergency contact: Primary Care Provider Call non-emergency contact if: you have any medication questions and your symptoms worsen Follow-up/Referrals: Ofe Mcgee MD [Primary Care Provider] - Diet: Carb Consistent or DM2 and Heart Healthy Addtl Attending Provider Instructions: Take Eliquis 5 mg twice daily, take prednisone in a tapering dose fashion as directed. Prescriptions have been sent to [facility] pharmacy in [place] Pending Studies at Discharge: No Stand-Alone Forms: My [facility], Smoking Cessation Medications and DC Order Prescriptions: New prednisone 10 mg Tablet See Rx Instructions .ROUTE .COMPLEX Qty: 12 0RF Rx Instructions: 10 mg orally 3 times a day for 2 days, then 10 mg twice a day for 2 days, then 10 mg once a day for 2 days, then stop Eliquis 5 mg Tablet 5 mg PO BID Qty: 60 0RF Continued (DME) blood-glucose meter [OneTouch Ultra2 Meter] [facility] [place] See Rx Instructions .Route Qty: 1 0RF Rx Instructions: As directed (DME) nebulizers [facility] [place] See Rx Instructions .Route Qty: 1 0RF Rx Instructions: As directed insulin aspart U-100 [Novolog U-100 Insulin aspart] 100 unit/mL solution See Rx Instructions subcut DAILY Qty: 100 4RF Rx Instructions: For insulin pump 300 units a day. (DME) pen needle, diabetic [BD Kaitlin 2nd Gen Pen Needle] 32 gauge x 5/32" needle See Rx Instructions miscellaneous .MEDSUPPLY Qty: 50 0RF Rx Instructions: As directed (DME) pen needle, diabetic [BD Kaitlin 2nd Gen Pen Needle] 32 gauge x 5/32" needle See Rx Instructions miscellaneous .MEDSUPPLY Qty: 150 5RF Rx Instructions: change new pen 5x a day ipratropium-albuterol 0.5 mg-3 mg(2.5 mg base)/3 mL solution for nebulization 3 ml INHALATION Q4H PRN (Reason: COUGHING, WHEEZING, SHORTNESS OF BREATH) Qty: 180 4RF (DME) OneTouch Ultra Test Strip See Rx Instructions .Route Qty: 400 3RF Rx Instructions: As directed four times per day to monitor blood glucose multivitamin Tablet 1 tab PO QAM Qty: 30 1RF atorvastatin 40 mg tablet 40 mg PO QPM Qty: 30 1RF aspirin [Robert Low Dose Aspirin] 81 mg Tablet,Delayed Release (Dr/Ec) 81 mg PO QAM Qty: 30 1RF spironolactone 25 mg Tablet 25 mg PO QAM Qty: 30 1RF pantoprazole 40 mg Tablet,Delayed Release (Dr/Ec) 40 mg PO DAILYBB Qty: 30 1RF nitroglycerin 0.4 mg tablet, sublingual 0.4 mg SL DIRECTED PRN (Reason: Chest Pain) Qty: 25 0RF folic acid 1 mg Tablet 1 mg PO QAM Qty: 30 1RF sertraline 50 mg Tablet 50 mg PO QAM Qty: 30 1RF magnesium oxide 400 mg magnesium Tablet 400 mg PO QAM Qty: 30 1RF diclofenac sodium [Voltaren Arthritis Pain] 1 % gel 4 g EXT QID PRN (Reason: Pain) naloxone [Narcan] 4 mg/actuation spray,non-aerosol 4 mg INTRANASAL DIRECTED PRN (Reason: OVERDOSE) bupropion HCl 100 mg tablet sustained-release 12 hr 100 mg PO UD Rx Instructions: Take 100mg by mouth in the morning and 200mg by mouth at bedtime potassium chloride 20 mEq tablet extended release 20 meq PO BID diclofenac sodium 75 mg Tablet,Delayed Release (Dr/Ec) 75 mg PO BID Qty: 60 0RF famotidine 20 mg Tablet 20 mg PO DAILY PRN (Reason: heartburn) Qty: 30 0RF budesonide 0.5 mg/2 mL Suspension For Nebulization 0.5 mg NEB BIDR Qty: 120 0RF Combivent Respimat 20-100 mcg/actuation mist 1 puff INHALATION QID PRN (Reason: shortness of breath) Qty: 4 3RF Rx Instructions: space evenly during waking hours oxycodone 10 mg tablet 10 mg PO DIRECTED PRN (Reason: Pain) Rx Instructions: filled 09/07 30 day supply Jardiance 10 mg tablet 10 mg PO UD Rx Instructions: 10 mg daily Last filled August 18 for 30 day supply. Pt no longer taking? torsemide 20 mg tablet 40 mg PO QPM Rx Instructions: Pt takes at 3:00pm levothyroxine 25 mcg tablet 25 mcg PO UD Rx Instructions: Take 25mcg w/ 200mcg by mouth to equal 225mcg every morning. isosorbide mononitrate 60 mg tablet extended release 24 hr 60 mg PO QAM furosemide 80 mg tablet 80 mg PO QAM levothyroxine 200 mcg tablet 200 mcg PO UD Rx Instructions: Take 200mcg w/ 25mcg by mouth to equal 225mcg every morning. topiramate 100 mg tablet 100 mg PO UD Rx Instructions: Take 100mg by mouth in the morning and 200mg by mouth at bedtime metoprolol tartrate 25 mg tablet 25 mg PO BID miconazole nitrate [Desenex] 2 % powder 1 applic topical DAILY Qty: 85 0RF Rx Instructions: Apply powder to groin and under breasts daily Discharge Orders: Discharge Order- CHF (Routine); Ordered 09/18/24 Ordered By: Neymar Molina Admission Data Admit Date/Time: 09/14/24 15:34 Attending Provider: Neymar Molina Admit Provider: Solomon Smiley Primary Care Provider: Ofe Mcgee Other Providers: Solomon Smiley Hospital Stay Data Consultations 09/14/24 14:53 ED Decision to Admit Stat Pending Results Patient Have Any Pending Studies at Discharge: No Discharge Instructions Given to Patient (Per Discharging Provider) Take Eliquis 5 mg twice daily, take prednisone in a tapering dose fashion as directed. Prescriptions have been sent to [facility] pharmacy in [place] Total Time Total Time Spent Total Time Spent (In Minutes): 45 minutes Coding Level of Care Code 27227 INP/OBS DISCH >30 MIN Diagnoses Acute respiratory failure with hypoxia J96.01 Acute diastolic (congestive) heart failure I50.31 New onset atrial flutter I48.92 COPD with acute exacerbation J44.1 Diabetic retinopathy associated with type 2 diabetes mellitus E11.319
[2024-09-18] MEDS: predniSONE 10 MG TABLET PO SCH (13:43)
== END 2024-09-18 15:01 | disposition home or self-care (01) | DRG 291 ==
LOC: ED 13:16 → 2E 15:34 → SUATTDRO 15:34 → 2E 18:15

== ENCOUNTER 2024-11-02 16:20 | Observation (INO) ==
[2024-11-02 17:08] LABS: Basophils # (auto) 0.05 K/uL (0.00-0.20); Basophils % (auto) 0.5 %; Eosinophils # (auto) 0.33 K/uL (0.00-0.50); Eosinophils % (auto) 3.1 %; Hematocrit (blood only) 43.4 % (37.0-47.0); Hemoglobin 12.8 g/dl (12.0-16.0); Immature Granulocytes # (auto) 0.09 K/uL (0.01-0.20); Immature Granulocytes % (auto) 0.8 %; Lymphocytes # (auto) 1.64 K/uL (1.20-3.40); Lymphocytes % (auto) 15.4 %; Mean Corpuscular Hemoglobin 27.5 pg (25.0-34.0); Mean Corpuscular Hgb Conc 29.5 g/dL (32.0-36.0); Mean Corpuscular Volume 93.1 fL (80.0-100.0); Mean Platelet Volume 10.3 fL (9.4-12.4); Monocytes # (auto) 0.88 K/uL (0.11-0.59); Monocytes % (auto) 8.2 %; Neutrophils # (auto) 7.68 K/uL (1.40-6.50); Platelet Count 284 K/uL (130-400); RDW Coefficient of Variation 15.7 % (11.5-14.5); RDW Standard Deviation 53.8 fL (36.4-46.3); Red Blood Count 4.66 M/uL (4.20-5.40); White Blood Count 10.67 K/ul (4.8-10.8)
[2024-11-02 17:18] LABS: Alanine Aminotransferase 14 U/L (7-52); Albumin Globulin Ratio 0.9 (0.9-2); Albumin Level 3.7 gm/dl (3.4-5.0); Alkaline Phosphatase 85 U/L (34-104); Anion Gap 6 (3-11); BUN Creatinine Ratio 19.1 (10-20); Bilirubin,Total 0.4 mg/dl (0.2-1.0); Blood Urea Nitrogen 27 mg/dl (6-23); Carbon Dioxide 30 mmol/L (21-32); Chloride 104 mmol/L (98-107); Globulin 4.2 gm/dl (2.5-4.0); Glucose 149 mg/dl (70-99(Fasting)); Lipase 30 U/L (11-82); Magnesium 2.2 mg/dl (1.7-2.4); Sodium 140 mmol/L (136-145); Total Protein 7.9 gm/dl (6.0-8.3)
[2024-11-02 17:21] LABS: Troponin I High Sensitivity 7.6 pg/ml (0-14)
--- NOTE | 2024-11-02 17:28 | XRay Report ---
EXAM: Radiograph of the Chest 1 View INDICATION: Chest pain. TECHNIQUE: Frontal view of the chest. COMPARISON: 09/14/2024 FINDINGS: Lungs and pleural spaces: Stable pulmonary vascular congestion and mild basilar atelectasis. No consolidation or pulmonary edema. No pleural effusion or pneumothorax. Heart: Stable cardiomegaly. Mediastinum: Probable small hiatal hernia. Bones/joints: No fracture, erosion or dislocation. Soft tissues: No abnormality noted. No radiopaque foreign body noted. Tubes, lines and devices: Stable tracheostomy. Upper abdomen: No abnormality noted. IMPRESSION: Stable chronic changes. ACT 112: Negative or not required by law. Electronically signed by Estephania Barreto 11-02-2024 5:27 PM
--- NOTE | 2024-11-02 19:05 | Emergency Department Note ---
Impression & Plan Ambulatory dysfunction, Chest pain, Tracheostomy in place, Obesity hypoventilation syndrome ED Provider Note NAME: ANN JACKSON AGE: 69 SEX: F : 1955 ARRIVES VIA: Ambulance INFORMANT: Patient ED PROVIDER(S): Don Lomeli MD CHIEF COMPLAINT: Chest pain, admission. PLAN: Disposition: Admit MEDICAL DECISION MAKING: The patient is a pleasant 69-year-old woman with a past medical history of chronic respiratory failure on home oxygen, history of tracheostomy, COPD, diastolic heart failure, CKD, IDDM 2, hypertension, hyperlipidemia, hypothyroidism, chronic pain, morbid obesity, nonambulatory who presents to the emergency department via EMS for evaluation of acute on chronic right-sided chest pain but mainly for admission due to the patient's caregivers being unavailable this weekend and the agency was unable to fill the vacancy where the patient's daughter is unable to care for the patient as her daughter is disabled herself. Patient denies any shortness of breath from baseline. Denies any fevers, chills, cough, congestion, GI/ symptoms. On arrival to the emergency department the patient is no distress, afebrile with stable vital signs. She appears euvolemic. EKG demonstrates atrial ectopic rhythm without overt acute ischemia. Chest x- ray with stable chronic changes with vascular congestion without consolidation or pulmonary edema. WBC, H/H and platelets within normal limits. Chemistry without metabolic acidosis. Creatinine 1.4, similar to prior values. LFTs are unremarkable. High sensitivity troponin 7.6, within normal limits. Lipase is within normal limits. Given the patient's reassuring valuation unlikely to have emergent process time. Patient does agree with and request admission due to having no caregivers which is necessary for her significant comorbidities. Case was discussed with Dr. Astudillo, [facility] hospitalist, who will evaluate the patient for admission. Further management per admitting team. Triage Nursing notes reviewed and agree them. Prior/external medical records reviewed Vital Signs: reviewed Differential diagnosis: Cardiac ischemia, aortic dissection, pulmonary embolism, pneumothorax, pneumonia, pericarditis, myocarditis, esophageal rupture, GERD, cholecystitis, pancreatitis, musculoskeletal, as well as other pathologies. ER treatment provided: See below. Diagnostics interpreted by me: ECG: Atrial ectopic rhythm, 68 bpm, occasional PVCs, right bundle branch block, no overt ST ovation or depression, QTc 429, QRS 134. Cardiac Monitoring: An order for continuous cardiac monitoring was placed and demonstrated Atrial ectopic rhythm, 68 bpm, occasional PVCs Laboratory studies: See below Imaging studies: See below Consultation(s): Case was discussed with Dr. Astudillo, [facility] hospitalist, who will evaluate the patient for admission. HPI: The patient is a pleasant 69-year-old woman with a past medical history of chronic respiratory failure on home oxygen, history of tracheostomy, COPD, diastolic heart failure, CKD, IDDM 2, hypertension, hyperlipidemia, hypothyroidism, chronic pain, morbid obesity, nonambulatory who presents to the emergency department via EMS for evaluation of acute on chronic right-sided chest pain but mainly for admission due to the patient's caregivers being unavailable this weekend and the agency was unable to fill the vacancy where the patient's daughter is unable to care for the patient as her daughter is disabled herself. Patient denies any shortness of breath from baseline. Denies any fevers, chills, cough, congestion, GI/ symptoms. ROS: See above HPI for pertinent positives & negatives. A total of 10 systems reviewed and were otherwise negative. VITALS:See Below PHYSICAL EXAMINATION: GENERAL: Awake, alert, chronically ill-appearing, in no distress, BMI 66.5. HENT: Normocephalic, atraumatic. Oropharynx unremarkable. EYES: Normal conjunctiva. Sclera non-icteric. NECK: Supple. No nuchal rigidity. FROM. No JVD. Tracheostomy site clean dry intact. RESPIRATORY: Clear to auscultation. CARDIAC: Regular rate, normal rhythm. Extremities warm and well perfused. Pulses equal. ABDOMEN: Soft, non-distended. No tenderness to palpation. No rebound or guarding. No masses. MUSCULOSKELETAL: Chest examination reveals no tenderness mild reproducible right anterior chest wall discomfort. The back is symmetrical on inspection without obvious abnormality. There is no CVA tenderness to palpation. LOWER EXTREMITIES: Calves are equal size bilaterally and non-tender. 1+ bilateral lower extremity edema. No discoloration. NEURO: Normal sensorium. No sensory or motor deficits noted. SKIN: No rash or jaundice noted. Don Lomeli MD Past Med/Surg History Problem List (Updated 11/03/24 @ 05:26 by Don Lomeli MD) Obesity hypoventilation syndrome (Acute) Tracheostomy in place (Acute) Chest pain (Acute) Ambulatory dysfunction (Acute) New onset atrial flutter COPD with acute exacerbation (Acute) Acute diastolic (congestive) heart failure Acute respiratory failure with hypoxia (Acute) Skin ulcer of groin, limited to breakdown of skin Parainfluenza infection (Acute) Wheezing (Acute) SOB (shortness of breath) (Acute) Morbid obesity with BMI of 60.0-69.9, adult Insulin-requiring or dependent type II diabetes mellitus Hypothyroidism HTN (hypertension) Physical deconditioning Chronic kidney disease, stage 3 Dyslipidemia, goal LDL below 70 HTN, goal below 130/80 Chronic pain Iron deficiency Chronic hypoxic respiratory failure Diabetic nephropathy Seborrhea Back pain Open wound Lesion of left [place] kidney Ambulatory dysfunction Anemia Left knee pain Pain and swelling of right lower extremity (Acute) Pain and swelling of left lower extremity (Acute) Common migraine without aura (Acute) Hypersomnia with sleep apnea (Acute) Memory loss (Acute) Myoclonus (Acute) Tracheobronchitis (Acute) Palpitations Dyslipidemia (Chronic) MRSA (methicillin resistant staph aureus) culture positive (Chronic) "sputum 11/2015" History of hysterectomy (Chronic) Right ventricular dysfunction (Chronic) Medical History Congestive heart failure Diabetic retinopathy associated with type 2 diabetes mellitus Hypoglycemia Chronic kidney disease, stage 3b C. difficile diarrhea Acute gout Wound, breast Type 2 diabetes mellitus Right bundle branch block Presence of tracheostomy Morbid obesity Weakness Cor pulmonale CHF (congestive heart failure) Chronic diastolic heart failure cor pulmonale Chronic obstructive pulmonary disease Generalized weakness Fracture of distal end of right femur Hypothyroidism (acquired) Ureterolithiasis Vitamin D deficiency Adjustment disorder with depressed mood Tinea unguium GERD (gastroesophageal reflux disease) Anxiety Coronary artery disease RASHAAD (obstructive sleep apnea) Sepsis Surgical History History of tonsillectomy and adenoidectomy History of cholecystectomy History of appendectomy Family History Mother Coronary heart disease COPD (chronic obstructive pulmonary disease) Father Suicide Hung himself. Pt found him. Unknown Lung cancer Social History Smoking Status: Former smoker Tobacco Type: Cigarettes Second Hand Exposure: No; Do You Dip or Chew Tobacco: No; Tobacco Cessation Education Requested by Patient: No Hx Alcohol Use: Yes Alcohol type: wine Hx Substance Use: No Preferred Language: Romanian Communication Ability: trach Visual Impairment: Limited Hearing Ability: Normal Group Insurance Specialist Required: No Beliefs That Will Affect Care: None marital status: Current Living Situation: Family Current Living Situation Comment: lives at home with daughter current occupational status: disabled How many Children do You have: 1 Other Information That Helps Us Care for You: No Feels Safe at Home: Yes Safety Concerns: Feels Safe At This Time Diet: regular Diet Comment: Drinks 1 Boost drink supplement in the morning caffeine: Yes (1 coffee daily) Physical Activity Frequency: Does not Exercise Seatbelt Use: always Do you think of yourself as: straight/heterosexual Gender Identity: Female Assistive Devices: Glasses and Other Assistive Devices Comment: trach Allergies Allergies Allergy/AdvReac Type Severity Reaction Status Date / Time animal dander Allergy Intermediate Sneezing, Unverified 08/13/24 11:43 itchy watery eyes and Difficulty Breathing Penicillins Allergy Intermediate Hives Verified 08/13/24 11:43 tree and shrub pollen Allergy Intermediate Sneezing, Unverified 08/13/24 11:43 itchy watery eyes and Difficulty Breathing amitriptyline Allergy Unknown CAN'T Verified 08/13/24 11:43 REMEMBER doxycycline Allergy Unknown CAN'T Verified 08/13/24 11:43 REMEMBER guaifenesin Allergy Unknown CAN'T Verified 08/13/24 11:43 REMEMBER metformin Allergy Unknown CAN'T Verified 08/13/24 11:43 REMEMBER phenylephrine Allergy Unknown CAN'T Verified 08/13/24 11:43 REMEMBER pseudoephedrine Allergy Unknown CAN'T Verified 08/13/24 11:43 REMEMBER tetracycline Allergy Unknown CAN'T Verified 08/13/24 11:43 REMEMBER venlafaxine [From Effexor] Allergy Unknown CAN'T Verified 08/13/24 11:43 REMEMBER gabapentin AdvReac Intermediate BECOMES Verified 08/13/24 11:43 AGGRESSIVE Home Meds Home Medications Medication Instructions Recorded Confirmed diclofenac sodium 1 % topical gel 4 g EXT QID PRN Pain 01/15/24 09/14/24 (Voltaren Arthritis Pain) naloxone 4 mg/actuation nasal 4 mg intranasal DIRECTED PRN 01/15/24 09/14/24 spray (Narcan) OVERDOSE bupropion HCl 100 mg tablet,12 hr 100 mg PO UD 02/03/24 09/14/24 sustained-release potassium chloride 20 mEq 20 meq PO BID 02/03/24 09/14/24 tablet,extended release furosemide 80 mg tablet 80 mg PO QAM 06/13/24 09/14/24 isosorbide mononitrate 60 mg 60 mg PO QAM 06/13/24 09/14/24 tablet,extended release 24 hr levothyroxine 200 mcg tablet 200 mcg PO UD 06/13/24 09/14/24 levothyroxine 25 mcg tablet 25 mcg PO UD 06/13/24 09/14/24 metoprolol tartrate 25 mg tablet 25 mg PO BID 06/13/24 09/14/24 topiramate 100 mg tablet 100 mg PO UD 06/13/24 09/14/24 torsemide 20 mg tablet 40 mg PO QPM 06/13/24 09/14/24 empagliflozin 10 mg tablet 10 mg PO UD 09/14/24 09/14/24 (Jardiance) oxycodone 10 mg tablet 10 mg PO DIRECTED PRN Pain 09/14/24 09/14/24 Previous Rx's Medication Instructions Recorded aspirin 81 mg tablet,delayed 81 mg PO QAM #30 tabs 04/06/23 release (Robert Low Dose Aspirin) atorvastatin 40 mg tablet 40 mg PO QPM #30 tabs 04/06/23 folic acid 1 mg tablet 1 mg PO QAM #30 tabs 04/06/23 magnesium oxide 400 mg PO QAM #30 tabs 04/06/23 multivitamin 1 tab PO QAM #30 tabs 04/06/23 nitroglycerin 0.4 mg sublingual 0.4 mg sublingual DIRECTED PRN 04/06/23 tablet Chest Pain #25 tabs pantoprazole 40 mg tablet,delayed 40 mg PO DAILYBB #30 tabs 04/06/23 release sertraline 50 mg tablet 50 mg PO QAM #30 tabs 04/06/23 spironolactone 25 mg tablet 25 mg PO QAM #30 tabs 04/06/23 blood-glucose meter (OneTouch #1 ea 07/21/23 Ultra2 Meter) pen needle, diabetic 32 gauge x #150 ea 08/26/23" (BD Kaitlin 2nd Gen Pen Needle) pen needle, diabetic 32 gauge x #50 ea 08/26/23/32" (BD Kaitlin 2nd Gen Pen Needle) nebulizers #1 ea 11/16/23 ipratropium 0.5 mg-albuterol 3 mg 3 ml inhalation Q4H PRN COUGHING, 11/25/23 (2.5 mg base)/3 mL nebulization WHEEZING, SHORTNESS OF BREATH #180 soln mL budesonide 0.5 mg/2 mL suspension 0.5 mg (2 mL) NEB BIDR #120 mL 03/02/24 for nebulization diclofenac sodium 75 mg 75 mg PO BID #60 tabs 03/02/24 tablet,delayed release famotidine 20 mg tablet 20 mg PO DAILY PRN heartburn #30 03/02/24 tabs ipratropium 20 mcg-albuterol 100 1 puff inhalation QID PRN 03/02/24 mcg/actuation mist for inhalation shortness of breath #4 grams (Combivent Respimat) miconazole nitrate 2 % topical 1 applic topical DAILY Skin 06/15/24 powder (Desenex) irritation #85 grams insulin aspart U-100 100 unit/mL See Rx Instructions subcut DAILY 08/21/24 subcutaneous solution (Novolog #100 mL U-100 Insulin aspart) blood sugar diagnostic (OneTouch #400 ea 08/27/24 Ultra Test strips) apixaban 5 mg tablet (Eliquis) 5 mg PO BID #60 tabs 09/18/24 prednisone 10 mg tablet See Rx Instructions .Route 09/18/24 .COMPLEX #12 tabs Results & Data (ED) Vital Signs Vital Signs - 24 hr 11/02/24 16:29 11/02/24 16:29 11/02/24 16:29 Temperature Temperature Source Pulse Rate Pulse Rate [Apical] 76 Pulse Rhythm Pulse Rhythm [Apical] Regular Pulse Strength Pulse Strength [Apical] Normal Respiratory Rate 13 Respiratory Effort / Characteristics Non-Labored Non-Labored Spontaneous Respiratory Depth Normal Normal Respiratory Pattern Regular Blood Pressure Blood Pressure [Left Arm] 119/77 Blood Pressure Mean Blood Pressure Mean [Left Arm] 91 Blood Pressure Position Pulse Oximetry 94 Oxygen Delivery Method Room Air Room Air Room Air Sepsis Recent Fever Within 48 Hours Sepsis New/Unexplained Change in Mental Status Sepsis Action Taken by Nursing 11/02/24 16:30 11/02/24 16:35 11/02/24 17:03 Temperature 36.6 C Temperature Source Oral Pulse Rate 76 72 Pulse Rate [Apical] Pulse Rhythm Regular Pulse Rhythm [Apical] Pulse Strength Normal Pulse Strength [Apical] Respiratory Rate 13 Respiratory Effort / Characteristics Non-Labored Respiratory Depth Normal Respiratory Pattern Regular Blood Pressure 119/77 Blood Pressure [Left Arm] Blood Pressure Mean 91 Blood Pressure Mean [Left Arm] Blood Pressure Position Lying Pulse Oximetry 94 96 Oxygen Delivery Method Room Air Room Air Sepsis Recent Fever Within 48 Hours No Sepsis New/Unexplained Change in Mental Status No Sepsis Action Taken by Nursing No Action Required 11/02/24 18:40 11/02/24 19:47 Temperature Temperature Source Pulse Rate Pulse Rate [Apical] 71 81 Pulse Rhythm Pulse Rhythm [Apical] Pulse Strength Pulse Strength [Apical] Respiratory Rate 20 24 Respiratory Effort / Characteristics Respiratory Depth Respiratory Pattern Blood Pressure Blood Pressure [Left Arm] 120/98 136/83 Blood Pressure Mean Blood Pressure Mean [Left Arm] 105 100 Blood Pressure Position Pulse Oximetry 94 92 Oxygen Delivery Method Room Air Room Air Sepsis Recent Fever Within 48 Hours Sepsis New/Unexplained Change in Mental Status Sepsis Action Taken by Nursing Laboratory Data Attestation: I reviewed the patient's lab results. 11/02/24 16:40 11/02/24 17:35 Lab Results 11/02/24 11/02/24 11/02/24 Range/Units 16:39 16:40 17:35 WBC 10.67 (4.8-10.8) K/ul RBC 4.66 (4.20-5.40) M/uL Hgb 12.8 (12.0-16.0) g/dl Hct 43.4 (37.0-47.0) % MCV 93.1 (80.0-100.0) fL MCH 27.5 (25.0-34.0) pg MCHC 29.5 L (32.0-36.0) g/dL RDW Std Deviation 53.8 H (36.4-46.3) fL RDW Coeff of Amee 15.7 H (11.5-14.5) % Plt Count 284 (130-400) K/uL MPV 10.3 (9.4-12.4) fL Immature Gran % (Auto) 0.8 % Neut % (Auto) 72.0 % Lymph % (Auto) 15.4 % [place] % (Auto) 8.2 % Eos % (Auto) 3.1 % Baso % (Auto) 0.5 % Neut # (Auto) 7.68 H (1.40-6.50) K/uL Lymph # (Auto) 1.64 (1.20-3.40) K/uL [place] # (Auto) 0.88 H (0.11-0.59) K/uL Eos # (Auto) 0.33 (0.00-0.50) K/uL Baso # (Auto) 0.05 (0.00-0.20) K/uL Immature Gran # (Auto) 0.09 (0.01-0.20) K/uL Sodium 140 (136-145) mmol/L Potassium TNP 4.0 Chloride 104 (98-107) mmol/L Carbon Dioxide 30 (21-32) mmol/L Anion Gap 6 (3-11) BUN 27 H (6-23) mg/dl Creatinine 1.41 H (0.6-1.2) mg/dl Est Cr Clr Drug Dosing 58.0 ml/min eGFR 40.63 BUN/Creatinine Ratio 19.1 (10-20) Glucose 149 H (70-99(Fasting)) mg/dl Calcium 9.0 (8.6-10.3) mg/dl Magnesium 2.2 (1.7-2.4) mg/dl Total Bilirubin 0.4 (0.2-1.0) mg/dl AST TNP 15 ALT 14 (7-52) U/L Alkaline Phosphatase 85 (34-104) U/L Troponin I High Sens 7.6 (0-14) pg/ml B-Natriuretic Peptide 71 (0-100) pg/ml Total Protein 7.9 (6.0-8.3) gm/dl Albumin 3.7 (3.4-5.0) gm/dl Globulin 4.2 H (2.5-4.0) gm/dl Albumin/Globulin Ratio 0.9 (0.9-2) Lipase 30 (11-82) U/L Administered Medications Apixaban (Apixaban 5 Mg Tablet) 5 mg PO BID ASIYA Stop: 12/02/24 22:39 Last Admin: 11/02/24 23:53 Dose: Not Given Documented By: GT Bupropion HCl (Bupropion Sr 100 Mg Tabcr) 200 mg PO HS ASIYA Stop: 12/02/24 22:59 Last Admin: 11/02/24 23:57 Dose: 200 mg Documented By: [facility] Metoprolol Tartrate (Metoprolol Tartrate 25 Mg Tab) 25 mg PO BID ASIYA Stop: 12/02/24 22:39 Last Admin: 11/02/24 23:52 Dose: 25 mg Documented By: [facility] Potassium Chloride (Potassium Chloride Crtab 20 Meq Tabcr) 20 meq PO BID ASIYA Stop: 12/02/24 22:39 Last Admin: 11/02/24 23:59 Dose: 20 meq Documented By: [facility] Imaging Data Radiologist's Impression: Chest X-Ray 11/02/24 16:40 EXAM: Radiograph of the Chest 1 View INDICATION: Chest pain. TECHNIQUE: Frontal view of the chest. COMPARISON: 09/14/2024 FINDINGS: Lungs and pleural spaces: Stable pulmonary vascular congestion and mild basilar atelectasis. No consolidation or pulmonary edema. No pleural effusion or pneumothorax. Heart: Stable cardiomegaly. Mediastinum: Probable small hiatal hernia. Bones/joints: No fracture, erosion or dislocation. Soft tissues: No abnormality noted. No radiopaque foreign body noted. Tubes, lines and devices: Stable tracheostomy. Upper abdomen: No abnormality noted. IMPRESSION: Stable chronic changes. ACT 112: Negative or not required by law. Electronically signed by Estephania Barreto 11-02-2024 5:27 PM Discharge Plan Visit Data Chief Complaint: Chest Pain Stated Complaint: CHEST PAIN ED Provider: Don Lomeli Discharge Problem: Ambulatory dysfunction, Chest pain, Tracheostomy in place, Obesity hypoventilation syndrome Patient Disposition: Admitted As Inpatient Discharge Instructions Interventions: ED Discharge Assessment Last Done: 11/02/24 22:06 Discharge Problem: Chest pain Qualifiers: Chest pain type: unspecified Qualified Code(s): R07.9 - Chest pain, unspecified
--- NOTE | 2024-11-02 21:24 | History & Physical Report ---
Date of Service November 02, 2024 Assessment & Plan (1) Chronic hypoxic respiratory failure: (2) COPD with acute exacerbation: (3) Acute diastolic (congestive) heart failure: (4) Tracheostomy in place: (5) Obesity hypoventilation syndrome: (6) Physical deconditioning: (7) Insulin-requiring or dependent type II diabetes mellitus: (8) Ambulatory dysfunction: (9) HTN (hypertension): (10) Chronic kidney disease, stage 3: Plan Chronic hypoxic respiratory failure/obesity hypoventilation syndrome/RASHAAD/COPD/diastolic CHF/tracheostomy in place- Patient has come to the emergency department due to high needs for respiratory care, and caregiver has canceled out over the weekend without warning She will be admitted to the PCU for routine tracheal care and trach collar at nighttime No adjustment in her usual medications will be needed Chronic COPD- Continue budesonide nebulizer, Combivent Respimat, Duonebs every 4 hours while awake and every 2 hours when necessary, and titration goal for oxygen to 92% Atrial flutter/CAD/hypertension/chronic diastolic CHF- Continue Eliquis, aspirin, furosemide, torsemide, spironolactone, isosorbide mononitrate, and metoprolol tartrate CKD stage IIIa- Creatinine 1.41, with base 1.42-1.51 Follow serially Diabetes mellitus- Hold Jardiance Continue insulin pump, glycemic pharmacy consult in place History of Present Illness Chief Complaint: The patient presents to the emergency department due to concerns regarding ongoing chronic shortness of breath. Her home health care workers canceled her care for the weekend, and she thus has presented to the ED for needed care over the weekend, and potential long term placement. She wears a trach collar at nighttime, and has high respiratory care needs Primary Care Provider: Ofe Mcgee MD The patient is a 69-year-old female with a past medical history including COPD, chronic diastolic CHF, recent admission from 09/14-09/18/2024 for acute respiratory failure with hypoxia due to CHF and COPD exacerbations, CKD stage III, hypertension, general deep physical deconditioning, morbid obesity, hypersomnia with sleep apnea and history of MRSA. She presents to the emergency department due to need for high intensity respiratory care with tracheal secretions over the weekend, may need long term placement. Allergies Allergy/AdvReac Type Severity Reaction Status Date / Time animal dander Allergy Intermediate Sneezing, Unverified 08/13/24 11:43 itchy watery eyes and Difficulty Breathing Penicillins Allergy Intermediate Hives Verified 08/13/24 11:43 tree and shrub pollen Allergy Intermediate Sneezing, Unverified 08/13/24 11:43 itchy watery eyes and Difficulty Breathing amitriptyline Allergy Unknown CAN'T Verified 08/13/24 11:43 REMEMBER doxycycline Allergy Unknown CAN'T Verified 08/13/24 11:43 REMEMBER guaifenesin Allergy Unknown CAN'T Verified 08/13/24 11:43 REMEMBER metformin Allergy Unknown CAN'T Verified 08/13/24 11:43 REMEMBER phenylephrine Allergy Unknown CAN'T Verified 08/13/24 11:43 REMEMBER pseudoephedrine Allergy Unknown CAN'T Verified 08/13/24 11:43 REMEMBER tetracycline Allergy Unknown CAN'T Verified 08/13/24 11:43 REMEMBER venlafaxine [From Effexor] Allergy Unknown CAN'T Verified 08/13/24 11:43 REMEMBER gabapentin AdvReac Intermediate BECOMES Verified 08/13/24 11:43 AGGRESSIVE Home Medications Medication Instructions Recorded Confirmed Type aspirin 81 mg tablet,delayed 81 mg PO QAM #30 tabs 04/06/23 09/14/24 Rx release (Robert Low Dose Aspirin) atorvastatin 40 mg tablet 40 mg PO QPM #30 tabs 04/06/23 09/14/24 Rx folic acid 1 mg tablet 1 mg PO QAM #30 tabs 04/06/23 09/14/24 Rx magnesium oxide 400 mg PO QAM #30 tabs 04/06/23 09/14/24 Rx multivitamin 1 tab PO QAM #30 tabs 04/06/23 09/14/24 Rx nitroglycerin 0.4 mg sublingual 0.4 mg sublingual DIRECTED PRN 04/06/23 09/14/24 Rx tablet Chest Pain #25 tabs pantoprazole 40 mg tablet,delayed 40 mg PO DAILYBB #30 tabs 04/06/23 09/14/24 Rx release sertraline 50 mg tablet 50 mg PO QAM #30 tabs 04/06/23 09/14/24 Rx spironolactone 25 mg tablet 25 mg PO QAM #30 tabs 04/06/23 09/14/24 Rx blood-glucose meter (OneTouch #1 ea 07/21/23 08/13/24 Rx Ultra2 Meter) pen needle, diabetic 32 gauge x #150 ea 08/26/23 08/13/24 Rx 5/32" (BD Kaitlin 2nd Gen Pen Needle) pen needle, diabetic 32 gauge x #50 ea 08/26/23 08/13/24 Rx 5/32" (BD Kaitlin 2nd Gen Pen Needle) nebulizers #1 ea 11/16/23 08/13/24 Rx ipratropium 0.5 mg-albuterol 3 mg 3 ml inhalation Q4H PRN COUGHING, 11/25/23 09/14/24 Rx (2.5 mg base)/3 mL nebulization WHEEZING, SHORTNESS OF BREATH #180 soln mL diclofenac sodium 1 % topical gel 4 g EXT QID PRN Pain 01/15/24 09/14/24 History (Voltaren Arthritis Pain) naloxone 4 mg/actuation nasal 4 mg intranasal DIRECTED PRN 01/15/24 09/14/24 History spray (Narcan) OVERDOSE bupropion HCl 100 mg tablet,12 hr 100 mg PO UD 02/03/24 09/14/24 History sustained-release potassium chloride 20 mEq 20 meq PO BID 02/03/24 09/14/24 History tablet,extended release budesonide 0.5 mg/2 mL suspension 0.5 mg (2 mL) NEB BIDR #120 mL 03/02/24 09/14/24 Rx for nebulization diclofenac sodium 75 mg 75 mg PO BID #60 tabs 03/02/24 09/14/24 Rx tablet,delayed release famotidine 20 mg tablet 20 mg PO DAILY PRN heartburn #30 03/02/24 09/14/24 Rx tabs ipratropium 20 mcg-albuterol 100 1 puff inhalation QID PRN 03/02/24 09/14/24 Rx mcg/actuation mist for inhalation shortness of breath #4 grams (Combivent Respimat) furosemide 80 mg tablet 80 mg PO QAM 06/13/24 09/14/24 History isosorbide mononitrate 60 mg 60 mg PO QAM 06/13/24 09/14/24 History tablet,extended release 24 hr levothyroxine 200 mcg tablet 200 mcg PO UD 06/13/24 09/14/24 History levothyroxine 25 mcg tablet 25 mcg PO UD 06/13/24 09/14/24 History metoprolol tartrate 25 mg tablet 25 mg PO BID 06/13/24 09/14/24 History topiramate 100 mg tablet 100 mg PO UD 06/13/24 09/14/24 History torsemide 20 mg tablet 40 mg PO QPM 06/13/24 09/14/24 History miconazole nitrate 2 % topical 1 applic topical DAILY Skin 06/15/24 09/14/24 Rx powder (Desenex) irritation #85 grams insulin aspart U-100 100 unit/mL See Rx Instructions subcut DAILY 08/21/24 09/14/24 Rx subcutaneous solution (Novolog #100 mL U-100 Insulin aspart) blood sugar diagnostic (OneTouch #400 ea 08/27/24 08/27/24 Rx Ultra Test strips) empagliflozin 10 mg tablet 10 mg PO UD 09/14/24 09/14/24 History (Jardiance) oxycodone 10 mg tablet 10 mg PO DIRECTED PRN Pain 09/14/24 09/14/24 History apixaban 5 mg tablet (Eliquis) 5 mg PO BID #60 tabs 09/18/24 Rx prednisone 10 mg tablet See Rx Instructions .Route 09/18/24 Rx .COMPLEX #12 tabs Past Med/Surg History Problem List (Updated 11/03/24 @ 04:24 by Chaparro Astudillo MD) Obesity hypoventilation syndrome Tracheostomy in place Chest pain (Acute) Ambulatory dysfunction (Acute) New onset atrial flutter COPD with acute exacerbation (Acute) Acute diastolic (congestive) heart failure Acute respiratory failure with hypoxia (Acute) Skin ulcer of groin, limited to breakdown of skin Parainfluenza infection (Acute) Wheezing (Acute) SOB (shortness of breath) (Acute) Morbid obesity with BMI of 60.0-69.9, adult Insulin-requiring or dependent type II diabetes mellitus Hypothyroidism HTN (hypertension) Physical deconditioning Chronic kidney disease, stage 3 Dyslipidemia, goal LDL below 70 HTN, goal below 130/80 Chronic pain Iron deficiency Chronic hypoxic respiratory failure Diabetic nephropathy Seborrhea Back pain Open wound Lesion of left [place] kidney Ambulatory dysfunction Anemia Left knee pain Pain and swelling of right lower extremity (Acute) Pain and swelling of left lower extremity (Acute) Common migraine without aura (Acute) Hypersomnia with sleep apnea (Acute) Memory loss (Acute) Myoclonus (Acute) Tracheobronchitis (Acute) Palpitations Dyslipidemia (Chronic) MRSA (methicillin resistant staph aureus) culture positive (Chronic) "sputum 11/2015" History of hysterectomy (Chronic) Right ventricular dysfunction (Chronic) Medical History Hypoglycemia Tracheostomy in place Chronic kidney disease, stage 3b C. difficile diarrhea Acute gout Wound, breast Type 2 diabetes mellitus Right bundle branch block Presence of tracheostomy Morbid obesity Weakness Cor pulmonale CHF (congestive heart failure) Chronic diastolic heart failure cor pulmonale Chronic obstructive pulmonary disease Obesity hypoventilation syndrome Generalized weakness Fracture of distal end of right femur Hypothyroidism (acquired) Ureterolithiasis Vitamin D deficiency Adjustment disorder with depressed mood Tinea unguium GERD (gastroesophageal reflux disease) Anxiety Coronary artery disease RASHAAD (obstructive sleep apnea) Sepsis Surgical History History of tonsillectomy and adenoidectomy History of cholecystectomy History of appendectomy Family History Mother Coronary heart disease COPD (chronic obstructive pulmonary disease) Father Suicide Hung himself. Pt found him. Unknown Lung cancer Social History Smoking Status: Former smoker Tobacco Type: Cigarettes Second Hand Exposure: No; Do You Dip or Chew Tobacco: No; Tobacco Cessation Education Requested by Patient: No Hx Alcohol Use: Yes Alcohol type: wine Hx Substance Use: No Preferred Language: Luxembourgish Communication Ability: trach Visual Impairment: Limited Hearing Ability: Normal Bakelite Molder Required: No Beliefs That Will Affect Care: None marital status: Current Living Situation: Family Current Living Situation Comment: lives at home with daughter current occupational status: disabled How many Children do You have: 1 Other Information That Helps Us Care for You: No Feels Safe at Home: Yes Safety Concerns: Feels Safe At This Time Diet: regular Diet Comment: Drinks 1 Boost drink supplement in the morning caffeine: Yes (1 coffee daily) Physical Activity Frequency: Does not Exercise Seatbelt Use: always Do you think of yourself as: straight/heterosexual Gender Identity: Female Assistive Devices: Glasses and Other Assistive Devices Comment: trach Review of Systems Review of Systems: The patient denies chest pain, palpitations, lower extremity swelling, sore t hroat, fevers, chills, sweats, nausea, vomiting, diarrhea , constipation, abdominal pain, pelvic pain, blood in urine or stool, dysuria, urinary frequency or urgency, lightheadedness, dizziness, headache, memory loss, loss of consciousness, rash, abnormal bruising or bleeding, imbalance, focal weakness, numbness or tingling in arms or legs, generalized arthralgias or myalgias, back or neck pain, or night sweats. The review of systems is otherwise negative other than for that already noted above, and at least 10 systems have been reviewed. Physical Exam Physical Exam: The patient is awake, alert and oriented 3, well developed and well nourished, normocephalic and atraumatic, lying in bed and in no acute distress. HEENT--PERRL, EOMI, mucous membranes and oropharynx mildly dry. Neck--supple. No JVD. No bruits. Tracheostomy site clean and dry, without erythema. Heart--normal S1 and S2. No murmurs, rubs or gallops. Lungs--clear bilaterally, but decreased breath sounds throughout. No respiratory distress, no accessory muscle use. Abdomen--normal bowel sounds and soft. Nontender. Nondistended, no hernias or masses, no organomegaly. Morbid obesity Extremities--no cyanosis or clubbing. No edema. Dermatologic--normal skin turgor, normal color, no abnormal lymph nodes, no rash. Neurologic--cranial nerves II through XII grossly intact. Rheumatologic--normal range of motion, limited by body habitus Psychiatric--normal affect. Results & Data Results & Data Vital Signs (Past 12 Hours) Vital Signs Temp Pulse Pulse Resp BP BP Pulse Ox 11/02/24 19:47 81 24 136/83 92 11/02/24 18:40 71 20 120/98 94 11/02/24 17:03 96 11/02/24 16:35 72 11/02/24 16:30 36.6 C 76 13 119/77 94 11/02/24 16:29 76 13 119/77 94 11/02/24 16:29 11/02/24 16:29 O2 Del Method 11/02/24 19:47 Room Air 11/02/24 18:40 Room Air 11/02/24 17:03 Room Air 11/02/24 16:35 11/02/24 16:30 Room Air 11/02/24 16:29 Room Air 11/02/24 16:29 Room Air 11/02/24 16:29 Room Air Laboratory Results Laboratory Results WBC 10.67 K/ul (4.8-10.8) 11/02/24 16:40 RBC 4.66 M/uL (4.20-5.40) 11/02/24 16:40 Hgb 12.8 g/dl (12.0-16.0) 11/02/24 16:40 Hct 43.4 % (37.0-47.0) 11/02/24 16:40 MCV 93.1 fL (80.0-100.0) 11/02/24 16:40 MCH 27.5 pg (25.0-34.0) 11/02/24 16:40 MCHC 29.5 g/dL (32.0-36.0) L 11/02/24 16:40 RDW Std Deviation 53.8 fL (36.4-46.3) H 11/02/24 16:40 RDW Coeff of Amee 15.7 % (11.5-14.5) H 11/02/24 16:40 Plt Count 284 K/uL (130-400) 11/02/24 16:40 MPV 10.3 fL (9.4-12.4) 11/02/24 16:40 Immature Gran % (Auto) 0.8 % 11/02/24 16:40 Neut % (Auto) 72.0 % 11/02/24 16:40 Lymph % (Auto) 15.4 % 11/02/24 16:40 [place] % (Auto) 8.2 % 11/02/24 16:40 Eos % (Auto) 3.1 % 11/02/24 16:40 Baso % (Auto) 0.5 % 11/02/24 16:40 Neut # (Auto) 7.68 K/uL (1.40-6.50) H 11/02/24 16:40 Lymph # (Auto) 1.64 K/uL (1.20-3.40) 11/02/24 16:40 [place] # (Auto) 0.88 K/uL (0.11-0.59) H 11/02/24 16:40 Eos # (Auto) 0.33 K/uL (0.00-0.50) 11/02/24 16:40 Baso # (Auto) 0.05 K/uL (0.00-0.20) 11/02/24 16:40 Immature Gran # (Auto) 0.09 K/uL (0.01-0.20) 11/02/24 16:40 Sodium 140 mmol/L (136-145) 11/02/24 16:39 Potassium 4.0 mmol/L (3.5-5.1) 11/02/24 17:35 Chloride 104 mmol/L (98-107) 11/02/24 16:39 Carbon Dioxide 30 mmol/L (21-32) 11/02/24 16:39 Anion Gap 6 (3-11) 11/02/24 16:39 BUN 27 mg/dl (6-23) H 11/02/24 16:39 Creatinine 1.41 mg/dl (0.6-1.2) H 11/02/24 16:39 Est Cr Clr Drug Dosing 58.0 ml/min 11/02/24 16:39 eGFR 40.63 11/02/24 16:39 BUN/Creatinine Ratio 19.1 (10-20) 11/02/24 16:39 Glucose 149 mg/dl (70-99(Fasting)) H 11/02/24 16:39 Calcium 9.0 mg/dl (8.6-10.3) 11/02/24 16:39 Magnesium 2.2 mg/dl (1.7-2.4) 11/02/24 16:39 Total Bilirubin 0.4 mg/dl (0.2-1.0) 11/02/24 16:39 AST 15 U/L (13-39) 11/02/24 17:35 ALT 14 U/L (7-52) 11/02/24 16:39 Alkaline Phosphatase 85 U/L (34-104) 11/02/24 16:39 Troponin I High Sens 7.6 pg/ml (0-14) 11/02/24 16:39 B-Natriuretic Peptide 71 pg/ml (0-100) 11/02/24 17:35 Total Protein 7.9 gm/dl (6.0-8.3) 11/02/24 16:39 Albumin 3.7 gm/dl (3.4-5.0) 11/02/24 16:39 Globulin 4.2 gm/dl (2.5-4.0) H 11/02/24 16:39 Albumin/Globulin Ratio 0.9 (0.9-2) 11/02/24 16:39 Lipase 30 U/L (11-82) 11/02/24 16:39 Impressions Chest X-Ray 11/02/24 16:40 EXAM: Radiograph of the Chest 1 View INDICATION: Chest pain. TECHNIQUE: Frontal view of the chest. COMPARISON: 09/14/2024 FINDINGS: Lungs and pleural spaces: Stable pulmonary vascular congestion and mild basilar atelectasis. No consolidation or pulmonary edema. No pleural effusion or pneumothorax. Heart: Stable cardiomegaly. Mediastinum: Probable small hiatal hernia. Bones/joints: No fracture, erosion or dislocation. Soft tissues: No abnormality noted. No radiopaque foreign body noted. Tubes, lines and devices: Stable tracheostomy. Upper abdomen: No abnormality noted. IMPRESSION: Stable chronic changes. ACT 112: Negative or not required by law. Electronically signed by Estephania Barreto 11-02-2024 5:27 PM Code Status & VTE Plan Code Status Full code VTE Prophylaxis Plan VTE Prophylaxis will be ordered: Yes PG Care Time/CCT Total # of Minutes Spent Total Time Spent with Patient: Total time spent is greater than 50% in coordination of care (as documented) at patient's floor/unit and/or counseling patient: Coding Level of Care Code 03205 INT INP/OBS CARE 3/75MIN Diagnoses Chronic hypoxic respiratory failure J96.11 COPD with acute exacerbation J44.1 Acute diastolic (congestive) heart failure I50.[address] Z93.0 Obesity hypoventilation syndrome E66.2 Physical deconditioning R53.81 Insulin-requiring or dependent type II diabetes mellitus E11.9; Z79.4 Ambulatory dysfunction R26.2 Primary hypertension I10 Hypertension type: primary hypertension Chronic kidney disease, stage 3 N18.30 (9) HTN (hypertension) Hypertension type: primary hypertension Qualified Code(s): I10 - Essential (primary) hypertension
[2024-11-02] MEDS ORDERED: PHARMACY GLYCEMIC MGMT CONSULT PRN (22:40)
[2024-11-02] MEDS ORDERED: GLUCOSE 40% GEL 15 GM TUBE PO PRN (22:40)
[2024-11-02] MEDS ORDERED: CARBOHYDRATES FOR HYPOGLYCEMIA PO PRN (22:40)
[2024-11-02] MEDS ORDERED: DEXTROSE 50% 50 ML SYRINGE IV PRN (22:40)
[2024-11-02] MEDS ORDERED: GLUCOSE 10 TAB/TUBE PO PRN (22:40)
[2024-11-02] MEDS ORDERED: IPRATROPIUM BROMIDE/ALBUTEROL respimat INH INH PRN (22:40)
[2024-11-02] MEDS ORDERED: TOPIRAMATE 100 MG TAB PO SCH (22:40)
[2024-11-02] MEDS ORDERED: NITROGLYCERIN SL 0.4 MG/TAB TAB SL PRN (22:40)
[2024-11-02] MEDS ORDERED: oxyCODONE HCL IR 5 MG TAB (IMMEDIATE RELEASE) PO PRN (22:40)
[2024-11-02] MEDS ORDERED: ACETAMINOPHEN 325 MG TAB PO PRN (22:40)
[2024-11-02] MEDS ORDERED: GLUCAGON FOR INJ 1 MG VIAL SQ PRN (22:40)
[2024-11-02] MEDS ORDERED: INSULIN ASPART 100 UNITS/ML VIAL SC PRN (23:08)
[2024-11-02] MEDS ORDERED: IPRATROPIUM BROMIDE HFA INHALER INH PRN (23:09)
[2024-11-02] MEDS ORDERED: ALBUTEROL HFA 8 GM INHALER INH PRN (23:09)
[2024-11-02] MEDS ORDERED: INSULIN, Rapid-Acting PUMP SC SCH (23:15)
[2024-11-02] MEDS: METOPROLOL TARTRATE 25 MG TAB PO SCH (23:52)
[2024-11-02] MEDS: APIXABAN 5 MG TABLET PO SCH (23:53)
[2024-11-02] MEDS: buPROPion SR 100 MG TABCR PO SCH (23:57)
[2024-11-02] MEDS: POTASSIUM CHLORIDE CRTAB 20 MEQ TABCR PO SCH (23:59)
[2024-11-03] MEDS: LEVOTHYROXINE SODIUM 25 MCG TABLET PO SCH (05:56)
[2024-11-03] MEDS: LEVOTHYROXINE SODIUM 200 MCG TABLET PO SCH (05:56)
[2024-11-03] MEDS: PANTOprazole 40 MG TAB PO SCH (05:57)
[2024-11-03] MEDS: BUDESONIDE 0.5 MG/2 ML VIAL (PULMICORT) NEB SCH (07:13)
[2024-11-03 07:24] LABS: Basophils # (auto) 0.06 K/uL (0.00-0.20); Basophils % (auto) 0.5 %; Eosinophils # (auto) 0.33 K/uL (0.00-0.50); Eosinophils % (auto) 2.8 %; Hematocrit (blood only) 41.2 % (37.0-47.0); Hemoglobin 12.1 g/dl (12.0-16.0); Immature Granulocytes # (auto) 0.07 K/uL (0.01-0.20); Immature Granulocytes % (auto) 0.6 %; Lymphocytes # (auto) 1.56 K/uL (1.20-3.40); Lymphocytes % (auto) 13.3 %; Mean Corpuscular Hemoglobin 27.1 pg (25.0-34.0); Mean Corpuscular Hgb Conc 29.4 g/dL (32.0-36.0); Mean Corpuscular Volume 92.4 fL (80.0-100.0); Mean Platelet Volume 10.2 fL (9.4-12.4); Monocytes # (auto) 0.97 K/uL (0.11-0.59); Monocytes % (auto) 8.3 %; Neutrophils # (auto) 8.76 K/uL (1.40-6.50); Neutrophils % (auto) 74.5 %; Platelet Count 254 K/uL (130-400); RDW Coefficient of Variation 15.7 % (11.5-14.5); RDW Standard Deviation 53.1 fL (36.4-46.3); Red Blood Count 4.46 M/uL (4.20-5.40); White Blood Count 11.75 K/ul (4.8-10.8)
[2024-11-03] MEDS ORDERED: INSULIN ASPART PER UNIT CHARGE SC SCH (07:30)
[2024-11-03 07:42] LABS: Albumin Level 3.2 gm/dl (3.4-5.0); BUN Creatinine Ratio 18.4 (10-20); Calcium 8.9 mg/dl (8.6-10.3); Creatinine Clr Calc Pharmacy 53.7 ml/min; Magnesium 2.1 mg/dl (1.7-2.4); Potassium 4.2 mmol/L (3.5-5.1)
[2024-11-03] MEDS: Continuous Glucose Monitor SCH (08:02)
[2024-11-03] MEDS ORDERED: INSULIN ASPART PER UNIT CHARGE SQ SCH (09:00)
[2024-11-03] MEDS ORDERED: ACETAMINOPHEN 325 MG TAB PO PRN (10:39)
[2024-11-03] MEDS: FUROSEMIDE 80 MG TAB PO SCH (10:45)
[2024-11-03] MEDS: ISOSORBIDE MONO EXTENDED REL 60 MG TABCR PO SCH (10:45)
[2024-11-03] MEDS: MULTIVITAMIN TAB PO SCH (10:45)
[2024-11-03] MEDS: MAGNESIUM OXIDE 400 MG TAB PO SCH (10:45)
[2024-11-03] MEDS: ASPIRIN 81 MG ECTAB PO SCH (10:45)
[2024-11-03] MEDS: FOLIC ACID 1 MG TAB PO SCH (10:45)
[2024-11-03] MEDS: SERTRALINE HCL 50 MG TABLET PO SCH (10:46)
[2024-11-03] MEDS: SPIRONOLACTONE 25 MG TAB PO SCH (10:46)
[2024-11-03] MEDS: MICONAZOLE NITRATE POWDER 85 GM TOP SCH (10:46)
--- NOTE | 2024-11-03 11:31 | Hospitalist Progress Note ---
Date of Service November 03, 2024 Assessment & Plan (1) Chronic hypoxic respiratory failure: Plan: Permanent tracheostomy in place. Supplemental oxygen as needed to keep saturation greater than 90% (2) COPD with acute exacerbation: Plan: Actually, there is no acute exacerbation at this time. Continue current management (3) Acute diastolic (congestive) heart failure: Plan: She has chronic diastolic CHF. No acute exacerbation at this time. Monitor intake and output. Continue diuretic therapy (4) Tracheostomy in place: Plan: Permanent tracheostomy has been in place for some time (5) Obesity hypoventilation syndrome: Plan: Supportive care (6) Physical deconditioning: Plan: Supportive care. Continue home physical therapy (7) Insulin-requiring or dependent type II diabetes mellitus: Plan: ADA diet. The patient has an insulin pump (8) HTN (hypertension): Plan: Stable. Continue current medical management (9) Chronic kidney disease, stage 3: Plan: Stable. Monitor intake and output. Serial labs Plan Hopeful return to her home with caregiver tomorrow, November 04 Admission and Anticipated Discharge Date Admission Date: November 02, 2024 Subjective Alert and oriented. No distress. 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 She believes her tool crib manager will return tomorrow and she would like to be discharged back to her home situation tomorrow. Review of Systems 2 Review of Systems: Constitutionalno fever or chills ENTno blurred vision, no double vision, no epistaxis, no sore throat Respiratoryno cough, no wheezing. Chronic dyspnea on exertion Cardiacno palpitations, no chest pain, no syncope Estrella nausea, vomiting, diarrhea, melena, hematochezia GUno urinary retention, no urinary incontinence, no dysuria, no hematuria Musculoskeletalno joint pain, no muscle tenderness Skinno bruising, no rashes, no pruritus Neurono isolated weakness, no paresthesia, no weakness Psychno depression, no anxiety Physical Exam 2 Physical Exam: General-alert and oriented x3, no fever, no chills. Morbidly obese HEENT-head atraumatic and normocephalic, pupils equal and reactive to light, extraocular muscles intact Neck-no lymphadenopathy or thyromegaly, trachea midline with permanent tracheostomy present Chest-diminished breath sounds bilaterally. No rales wheezing or rhonchi Cardio -distant heart tones. Regular rate and rhythm, normal S1 and S2 Abdomen-normal bowel sounds, no hepatosplenomegaly Extremities-chronic appearing edema bilateral lower extremities below the knees from chronic venous insufficiency Skinscabbed lesion right anterior shoulder area which appears chronic Neuro-cranial nerves II through XII intact, motor and sensory function within normal limits, strength symmetrical with generalized weakness due to deconditioning, no focal deficits Psych-normal affect, normal mood Results & Data Results & Data Vital Signs (Past 12 Hours) Vital Signs Temp Pulse Pulse Resp BP Pulse Ox O2 Del Method 11/03/24 11:21 37.0 C 86 20 117/71 93 Trach Collar 11/03/24 10:44 92 H 11/03/24 09:17 Trach Collar 11/03/24 08:26 37.0 C 82 20 122/78 93 Aerosol Mask 11/03/24 07:22 79 18 91 Room Air 11/03/24 03:21 36.8 C 70 18 126/78 92 Trach Collar O2 Flow Rate 11/03/24 11:21 11/03/24 10:44 11/03/24 09:17 3 11/03/24 08:26 11/03/24 07:22 11/03/24 03:21 Laboratory Results 11/03/24 06:28 11/03/24 06:28 PG Care Time/CCT Total # of Minutes Spent Total Time Spent with Patient: Total time spent is greater than 50% in coordination of care (as documented) at patient's floor/unit and/or counseling patient: Coding Level of Care Code 13557 SUB INP/OBS CARE 2/35MIN Diagnoses Chronic hypoxic respiratory failure J96.11 COPD with acute exacerbation J44.1 Acute diastolic (congestive) heart failure I50.[address] Z93.0 Obesity hypoventilation syndrome E66.2 Physical deconditioning R53.81 Insulin-requiring or dependent type II diabetes mellitus E11.9; Z79.4 Primary hypertension I10 Hypertension type: primary hypertension Chronic kidney disease, stage 3 N18.30 (8) HTN (hypertension) Hypertension type: primary hypertension Qualified Code(s): I10 - Essential (primary) hypertension
[2024-11-03] MEDS: oxyCODONE HCL IR 5 MG TAB (IMMEDIATE RELEASE) PO PRN (20:57)
[2024-11-03] MEDS: ATORVASTATIN 40 MG TAB PO SCH (20:58)
[2024-11-03] MEDS: TORSEMIDE 20 MG TAB PO SCH (20:59)
--- OUTSIDE RECORDS SUMMARY | 2024-11-04 06:29 | External Medical Summary | Summary of Care ---
Author Name Unknown Organization [facility] Address [address] [facility] [place] [address] Phone [phone] Care Team Providers Care Financial Risk Manager Name Role Phone Ofe Mcgee MD Primary Care Provider Reason for Visit * Reason Onset Date Comments Medication Question 08/01/2024 Dr. Marley patient Encounter Details Date Type Department Care Team (Late st Contact Info) Description 08/01/2024 Telephone Cardiology, [facility] [address] [place] [id number] Aman Marley, [address] [place] [id number] Medication Question (Dr. Marley patient) Allergies Active Allergy Reactions Criticality Noted Date Comments Amoxicillin 04/27/2002 Dextromethorphan-Guaifenesin 010 Doxycycline 04/27/2002 Amitriptyline Hcl 08/10/2010 Gabapentin 09/01/2006 Other reaction(s): Physical aggression (finding) Metformin Hydrochloride 08/06/2010 Gabapentin 08/10/2010 Getting violent Penicillins Hives 04/26/2008 documented as of this encounter (statuses as of 10/31/2024) Medications TYLENOL EXTRA STRENGTH 500 MG PO TABS Take 2 Tablets by mouth in the morning and 2 Tablets before bedtime. Active MULTIVITAMINS PO TABSIndications: Morbid obesity, BMI not known (HCC) Take one by mouth once daily. 35 11 07/11/20 08 Active ASPIRIN EC 81 MG PO TBECIndications: Chest pain 1 TABLET DAILY 30 Tab 3 09/04/20 10 Active NEBULIZER MISCIndications: COPD, severity to be determined (HCC),Attention to tracheostomy (HCC) tubing for use of nebulizer for a patient with tracheostomy 1 Units 0 09/06/20 12 Active NEBULIZER DEVIIndications: COPD, severity to be determined (HCC),Attention to tracheostomy (HCC) for use with albuterol for wheezing. use every 4 hours as needed for wheezing. include tracheostomy masks 1 Device 0 09/07/20 12 Active SPACER/AERO-HOLD ING CHAMBERS DEVIIndications: COPD, severity to be determined (HCC) use with inhaler 1 Device 0 06/07/20 14 Active OXYGENIndication s:COPD, severity to be determined (HCC),Nocturnal hypoxemia 5 L/min(Oxygen) at bedtime . Via Trach. 1 Each 0 08/27/20 14 Active montelukast (SINGULAIR) 10 MG Tablet Take 1 Tablet by mouth at bedtime. 0 05/01/20 15 Active albuterol-ipratr opium (DUONEB) 2.5-0.5 MG/3ML nebulizer solution 3 ML 4 times daily for increased coughing, wheezing, or shortness of breath 180 Vial 3 05/28/20 15 Active ONETOUCH ULTRASOFT LANCETS MISC Use up to 6 times a day as directed, Dx: E11.9 1 Box Dosing Unit 11 08/13/20 19 Active metoprolol tartrate (LOPRESSOR) 25 MG Tablet take 1/2 tablet by mouth twice a day 30 Tab 5 10/04/20 19 Active buPROPion extended release, SR, (WELLBUTRIN SR) 100 MG TB12 take 3 tablet by mouth daily 90 Tab 3 10/10/20 19 Active folic acid 1 MG Tablet TAKE 1 TABLET BY MOUTH ONCE DAILY 30 Tab 02/19/20 20 Active topiramate (TOPAMAX) 100 MG TabletIndication s:Migraine with aura and without status migrainosus, not intractable TAKE 1 TABLET BY MOUTH EVERY MORNING AND 2 TABLETS AT BEDTIME 90 Tab 5 02/28/20 20 Active COMBIVENT RESPIMAT 20-100 MCG/ACT InhalerIndicatio ns:COPD, severity to be determined (HCC) INHALE ONE PUFF BY MOUTH FOUR TIMES DAILY 12 g 05/10/20 Active pantoprazole (PROTONIX) 40 MG TBECIndications: Gastroesophageal reflux disease, esophagitis presence not specified TAKE 1 TABLET BY MOUTH ONCE DAILY 90 Tab 05/27/20 Active levothyroxine (LEVOXYL) 200 MCG Tablet Take 1 Tablet by mouth daily first thing in the morning. 06/20/20 Active atorvaSTATin (LIPITOR) 40 MG Tablet Take 1 Tablet by mouth in the morning. 06/25/20 Active Lisinopril 2.5 MG Oral Tablet (Prinivil) Take 1 Tablet by mouth in the morning. 05/08/20 Active Commode BedsideIndicatio ns:Chronic right-sided heart failure (HCC),Chronic diastolic HF (heart failure) (HCC),HTN, goal below 140/90,Ambulator y dysfunction 1 bedside commode 1 Each 05/08/20 Active Nitroglycerin 0.4 MG Sublingual Tablet Sublingual (Nitrostat)Indic ations:Coronary artery disease involving nikolski coronary artery of nikolski heart without angina pectoris DISSOLVE 1 TABLET under tongue every 5 minutes if needed for chest pain; up to 3 doses in 15 minutes 100 Tablet 3 02/19/20 Active Insulin Aspart 100 UNIT/ML Subcutaneous Solution Sliding scale with meals: Glucose 151-200 (3 units insulin), glucose 201-250 (6 units insulin), glucose 251-300 (9 units insulin), Glucose greater than 300 (12 units insulin). Do not exceed 36 units daily. 10 mL 07/06/20 Active Insulin Aspart 100 UNIT/ML Subcutaneous Solution Insulin carb coverage: 1 unit insulin for every 4 carbs 10 mL 07/06/20 Active Albuterol Sulfate (2.5 MG/3ML) 0.083% Inhalation Nebulization Solution (Proventil) Inhale via nebulizer 1 Vial every 4 hours as needed for Wheezing or Shortness of Breath. 360 mL 07/06/20 Active Vitamin B-12 1000 MCG Oral Tablet Take by mouth 1 Tablet in the morning. 30 Tablet 07/06/20 Active Insulin Glargine 100 UNIT/ML Subcutaneous Solution (Lantus) Inject under the skin 54 Units in the morning AND 54 Units before bedtime. 1 Each 12 07/06/20 Active linaGLIPtin 5 MG Oral Tablet (Tradjenta) Take by mouth 1 Tablet in the morning. 30 Tablet 07/06/20 22 Active Menthol-Zinc Oxide 0.44-20.6 % External Ointment (Calmoseptine) Apply topically to affected area as needed for Other (After bowel movements and cleaning). 71 g 2 07/06/20 22 Active Polyethylene Glycol 3350 17 GM Oral Packet (Miralax) Take by mouth 1 Packet daily as needed for Constipation. 14 Each 07/06/20 22 Active Sennosides-Docus ate Sodium 8.6-50 MG Oral Tablet (Senokot-S) Take by mouth 2 Tablets in the morning. 60 Tablet 07/06/20 22 Active Empagliflozin 10 MG Oral Tablet (Jardiance) Take 1 Tablet by mouth in the morning. Active Sertraline HCl 50 MG Oral Tablet (Zoloft)Indicati ons:Coronary artery disease involving nikolski coronary artery of nikolski heart without angina pectoris,Chronic right-sided heart failure (HCC) TAKE 1 TABLET BY MOUTH EVERY MORNING 30 Tablet 06/23/20 23 Active Spironolactone 25 MG Oral Tablet (Aldactone)Indic ations:Chronic right-sided heart failure (HCC) Take 1 Tablet by mouth in the morning. 31 Tablet 09/26/20 23 Active Isosorbide Mononitrate ER 60 MG Oral Tablet Extended Release 24 Hour (Imdur)Indicatio ns:Coronary artery disease involving nikolski coronary artery of nikolski heart without angina pectoris TAKE 1 TABLET BY MOUTH EVERY MORNING 90 Tablet 3 10/25/20 23 Active oxyCODONE HCl 5 MG Oral Capsule (Oxy IR) Take 1 Capsule by mouth every 6 hours as needed. 07/05/20 24 Active Torsemide 20 MG Oral Tablet (Demadex)Indicat ions:Chronic right-sided heart failure (HCC) Take 1 Tablet by mouth in the morning. 90 Tablet 3 08/01/20 24 Active Torsemide 10 MG Oral Tablet (Demadex) One tablet daily in the morning for a total of 30 mg daily in the morning 90 Tablet 3 08/01/20 24 Active Potassium Chloride Janie ER 10 MEQ Oral Tablet Extended Release Two tablets by mouth daily in the morning. Patient unable to swallow 20 Eq tablet due to tracheostomy 180 Tablet 3 08/01/20 24 Active Contour Next Test In Vitro Strip (Glucose Blood)Indication s:Type 2 diabetes mellitus with hemoglobin A1c goal of less than 8.0% ([facility]) use to test 3 times daily 300 Strip 3 08/01/20 24 024 Discontin ued(Vivianu tiffanie/Jose ) documented as of this encounter (statuses as of 10/31/2024) Active Problems Problem Noted Date Diagnosed Date Nocturnal hypoxia 05/04/2022 Overview (05/04/2022): Wears 5L at home. Acute hyponatremia 05/04/2022 Femur fracture 03/28/2022 Overview (03/28/2022): Rt distal, fall from chair Acute on chronic respiratory failure with hypoxia and hypercapnia 03/28/2022 Morbid obesity with BMI of 60.0-69.9, adult 06/2022 Deep tissue injury 03/28/2022 Overview (03/28/2022): Left buttock Chronic heart failure with preserved [...] as of this encounter (statuses as of 10/31/2024) Resolved Problems Problem Noted Date Diagnosed Date Resolved Date Laceration of toe 03/28/2022 05/04/2022 Overview (03/28/2022): Rt second toe Cellulitis of lower extremity 03/28/2022 03/28/2022 Overview (03/28/2022): Bilateral medial thigh region cellulitis was original [...] weight or BMI > 40) 02/17/2010 10/06/2010 Overview (02/09/2016): Per Obesity Taxonomy ICD-10 update of inactive term HTN, GOAL BELOW 130/80 12/17/200907/13 Overview (12/17/2009): Per HTN Taxonomy. Type 2 diabetes mellitus wit h hemoglobin A1c goal of less than 7.0% 09/04/2009 09/19/2010 DM type 2, not at goal 05/09/200809/04 Overview (09/04/2009): Modified per Diabetes protocol #14. Hypersomnia with sleep apnea 05/09/2008 05/04/2022 ATTEN TO TRACHEOSTOMY #5 Bob kson metal trach tube 04/26/2008 05/04/2022 Overview (04/07/2009): Maintaining b/o obstructive sleep apnea Vomiting 03/05/2008 12/27/2012 Overview (08/23/2019): ICD-10 update of inactive term Constipation 02/16/2008 05/04/2022 Anxiety state 02/14/2008 05/04/2022 Pneumonia due to organism 02/13/2008 Overview (08/24/2016): ICD-10 update of inactive term Respiratory failure, acute 02/13/2008 0 06/09/2018 Morbid obesity, BMI not known 02/13/2008 02/17/2010 Overview (02/17/2010): Per Obesity Taxonomy HTN, goal below 140/90 02/13/200812/17 Overview (12/17/2009): Per HTN Taxonomy. Cardiac arrest 02/13/2008 09/28/2017 Respiratory arrest 02/13/2008 3 Hyposmolality 02/13/2008 12/27/2012 Hypotension 02/12/2008 03/26/2014 Diabetic retinopathy 018 Overview (06/13/2017): right eye PRP by Dr. Waite in 01/2017, Left Eye 02/17/17. Severe non-proliferative OU. documented as of this encounter (statuses as of 10/31/2024) Immunizations Name Administration Dates Next Due COVID-19, LNP-s, No Preserve , Tello-sucrose, Ages 12+ (Pfizer) 06/08/2022 Pneumococcal Conjugate Vacc, 13 Valent (Prevnar) 04/29/2015 Pneumococcal Polysaccharide PPV23 (Pneumovax) 09/27/2016 Seasonal Influenza Vac., MDV , IM, 0.5 mL (Fluzone) 08/26/2015,08/15/2014,08/23/2013,08/04,08/27/2011,08/28/2010 Seasonal Influenza, High Dos e, Trivalent, PF, IM (Fluzone HD) 08/01/2024 Seasonal Influenza, PF, 6 M & above, IM , (FluLaval or Fluzone) 08/22/2019,09/12/2018,08/23/2017 Seasonal Influenza, Quadriva lent, No Preserve, IM 09/27/2016 TDAP, Age 7 and older, IM (Adacel) 07/29/2011 documented as of this encounter Social [...] in the Last Year Never true 07/13/2019 Comments No Sex and Gender Information Value Date Recorded Sex Assigned at Female 04/13/2019 12:54 PM EDT Legal Sex Female 5:06 AM EST Gender Identity Female 04/13/2019 12:54 PM EDT Sexual Orientation Straight 04/13/2019 12 :54 PM EDT documented as of this encounter Miscellaneous Notes * Telephone Encounter - Delia Mosquera CMA - 08/02/2024 10:00 AM EDT Spoke with [facility] in [place]. Clarified scripts for torsemide - patient is to take both 10 & 20 mg tablet once daily for a total of 30 mg daily. * Telephone Encounter - Rodolfo Cristina OSA - 08/01/2024 3:44 PM EDT Person calling: Aya from [facility] Relationship to patient: Hand Coremaker Phone/Fax to return call: [phone] Reason for call(brief): Medication Question Pharmacy: [facility] Provider Name:Dr. Aman Marley Detailed message to office: Aya from [facility] calling requesting a call back. Aya has a question about dosing instructions for patient's Torsemide that was sent over today (08/03/24). Aya can be reached at [phone] to discuss. Thank You, Rodolfo Ext [phone] documented in this encounter Plan of Treatment [...] 12/25/2020 12/25/2019, , 06/19/2019, Additional history exists DTap/Tdap Vaccines (2 - Td or Tdap) 07/29/2021 07/29/2011, 07/29/2011 Pneumococcal Vaccine: 65+ Years (3 of 3 - PPSV23 or PCV20) 09/27/2021 09/27/2016, 04/29/2015 Mammogram 10/14/2021 10/14/2020, 03/2020, 09/24/2019, Additional history exists Cologuard 07/04/2022 07/04/2019, 05/09/2019 Colorectal Cancer Screening 07/04/2022 HbA1c 09/28/2022 03/28/2022, 06/22, 03/27/2019, Additional history exists GFR 01/05/2023 07/05/2022, 06/2022, 06/21/2022, Additional history exists TSH 04/25/2023 04/25/2022, 02/2019, 07/13/2019, Additional history exists CKD PHOS USE SMARTSET 23105 06/12/202305/22, 04/04/2022, 04/03/2022, Additional history exists CKD HGB USE SMARTSET 24017 07/05/202307/05, 06/12/2022, 06/12/2022, Additional history exists COVID-19 Vaccine ( season) 2024 10/26/2022, 06/08/2022, 06/08/2022, Additional history exists *COPD SEVERITY VERIFIED BY PFT Addressed 12/29/2017 (Declined) Overridden with th e intention of not completing the topic Influenza Vaccine (FLU shot) Completed 08/01/2024, 11/19/2021, 08/22/2019, Additional history exists HPV (Gardasil) Vaccine Aged Out No lo nger eligible based on patient's age to complete this topic Hepatitis B Vaccine Aged Out No longe r eligible based on patient's age to complete this topic MENINGOCOCCAL (MENACTRA/MENVEO) Aged Out No longer eligible based on patient's age to complete this topic documented as of this encounter Medical Devices Not on filedocumented as of this encounter Advance Directives * Full Code (Latest Code Status on File) Date Activated Date Inactivated Comments 03/27/2022 10:36 AM 07/06/2022 4:30 PM This order r eflects the patients wishes and were consensually agreed upon. Question Answer Comments Discussion of Advance Directives occurred with: Patient/Family * Full Code Date Activated Date Inactivated Comments 02/13/2008 1:48 AM 03/06/2008 9:34 PM Care Teams Financial Risk Manager Relationship Specialty Start Date End Date Ofe Mcgee MD [address] [facility] [address] [place] [address] PCP - General Family Medicine 06/02/20 documented as of this encounter
--- OUTSIDE RECORDS SUMMARY | 2024-11-04 06:29 | External Medical Summary | Continuity of Care Document ---
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 Name Role Phone Momo Mcgeehavi Primary Care Physician [phone] Encounter [facility] [phone] Date(s): 10/25/24 - 10/25/24 [facility] [address] Medical [facility] [address] [address] [phone] Encounter Diagnosis Ambulatory dysfunction(Discharge Diagnosis) - 10/25/24 CHF (congestive heart failure)(Discharge Diagnosis) - 10/25/24 Chronic pain(Discharge Diagnosis) - 10/25/24 Chronic respiratory failure(Discharge Diagnosis) - 10/25/24 Bed sore(Discharge Diagnosis) - 10/25/24 CKD (chronic kidney disease), stage IV(Discharge Diagnosis) - 10/25/24 New onset atrial flutter(Discharge Diagnosis) - 10/25/24 Fracture of distal femur(Discharge Diagnosis) - 10/25/24 Hospital discharge follow-up(Discharge Diagnosis) - 10/25/24 COPD exacerbation(Discharge Diagnosis) - 10/25/24 Hypothyroid(Discharge Diagnosis) - 10/25/24 Discharge Disposition: Home or Self Care Attending Physician: MD Bradford Christopher Allergies, Adverse Reactions, Alerts Substance Criticality Severity [...] Status Refusal Reason influenza virus vaccine, inactivated 9/11/24 Govind rded influenza virus vaccine, inactivated 08/12/23 Give n [...] bivalent 1 10/26/22 R ecorded SARS-CoV-2 mRNA (rrgzorylocu-mdcr-dho) 2 06/08/22 Recorded SARS-CoV-2 (COVID-19) mRNA BNT-162b2 [...] (Eqv-ProAir HFA) 90 mcg/inh inhalation aerosol Start: 09/27/24 1:35:00 PM EST, 2 puff, inhaled, q6h, Disp# 6.7 g, Refills: 5, Pharmacy: [facility] #[id number] Start Date: 09/27/24 Status: Ordered albuterol-ipratropium 2.5 mg-0.5 mg/3 mL inhalation solution Start: 09/27/24 1:35:00 PM EST, 3 mL, inhaled, q6h, Disp# 90 mL, Refills: 5, PRN: as needed for shortness of breath or wheezing, Pharmacy: [facility] #[id number] Start Date: 09/27/24 Status: Ordered aspirin 81 mg oral delayed release tablet Start: 02/02/24 11:46:00 AM EDT, 1 tab, PO, Daily, Disp# 90 tab, Refills: 2, 81 Unknown, Oral, 1 Refill(s), Pharmacy: [facility] Start Date: 02/02/24 Status: Ordered atorvastatin 40 mg oral tablet Start: 10/05/24 3:18:00 PM EST, 1 tab, PO, Daily, Disp# 90 tab, Refills: 3, Pharmacy: [facility] Start Date: 10/05/24 Stop Date: 09/30/25 Status: Ordered budesonide 0.5 mg/2 mL inhalation suspension Start: 04/19/24 1:48:00 PM EDT, 2 mL, NEB, bid, Disp# 120 mL, Refills: 2, Pharmacy: [facility] Start Date: 04/19/24 Stop Date: 07/18/24 Status: Ordered buPROPion 100 mg/12 hours (SR) oral tablet, extended release Start: 08/20/24 8:05:00 PM EDT, See Instructions, Disp# 90 tab, Refills: 2, take 1 tablet by mouth in the morning and 2 tablets in the evening, Pharmacy: [facility] Start Date: 08/20/24 Status: Ordered Desitin 40% topical paste Start: 05/18/24 11:35:00 AM EDT, 1 appl, topical, 5x/Day, Disp# 454 g, Refills: 6, Pharmacy: [facility] #[id number] Start Date: 05/18/24 Status: Ordered docusate sodium 100 mg oral capsule Start: 11/01/23 1:55:00 PM EST, 1 cap, PO, bid, Disp# 60 cap, 100 Unknown, Oral, 1 Refill(s), Pharmacy: [facility] #[id number] Start Date: 11/01/23 Status: Ordered famotidine 20 mg oral tablet Start: 04/09/24 3:08:00 PM EDT, 1 tab, PO, Daily, Disp# 30 tab, 30 tab, 0 Refill(s), Pharmacy: [facility] #[id number] Start Date: 04/09/24 Stop Date: 05/09/24 Status: Ordered folic acid 1 mg oral tablet Start: 08/06/24 11:35:00 AM EDT, See Instructions, Disp# 30 tab, Refills: 6, TAKE 1 TABLET BY MOUTH ONCE DAILY, Pharmacy: [facility] #[id number] Start Date: 08/06/24 Status: Ordered HumaLOG Vial 100 units/mL injectable solution Start: 11/04/23 6:39:00 PM EST, 1 unit =, subQ, Daily, Disp# 3 mL, Refills: 4, Per pump, Note to Pharmacy: May substitute for formulary equivalent., Pharmacy: [facility] #[id number] Start Date: 11/04/23 Status: Ordered hydrocortisone 1% topical cream Start: 05/14/24 3:47:00 PM EDT, 1 appl, topical, bid, Disp# 15 g, Pharmacy: [facility] #[id number] Start Date: 05/14/24 Stop Date: 05/28/24 Status: Ordered isosorbide mononitrate 60 mg oral tablet, extended release Start: 11/01/23 1:56:00 PM EST, See Instructions, Disp# 30 tab, Refills: 3, TAKE ONE TABLET BY MOUTH EVERY MORNING, Pharmacy: [facility] #[id number] Start Date: 11/01/23 Status: Ordered levothyroxine 200 mcg (0.2 mg) oral tablet Start: 11/01/23 1:57:00 PM EST, 1 tab, PO, Daily, Disp# 30 tab, Refills: 6, Pharmacy: [facility] Start Date: 11/01/23 Stop Date: 05/29/24 Status: Ordered levothyroxine 25 mcg (0.025 mg) oral tablet Start: 11/01/23 1:57:00 PM EST, 1 tab, PO, Daily, Disp# 30 tab, Refills: 6, Note to Pharmacy: should be on 225 mcg, Pharmacy: [facility] #[id number] Start Date: 11/01/23 Stop Date: 05/29/24 Status: Ordered loratadine 10 mg oral tablet Start: 06/06/24 2:48:00 PM EDT, 1 tab, PO, Daily, Disp# 30 tab, Refills: 6, 10 Unknown, Oral, 1 Refill(s), Pharmacy: [facility] #[id number] Start Date: 06/06/24 Status: Ordered melatonin Start: 03/07/24 10:41:00 AM EDT Start Date: 03/07/24 Status: Ordered metOLazone 2.5 mg oral tablet Start: 11/01/23 1:57:00 PM EST, 1 tab, PO, Daily, Disp# 30 tab, Refills: 4, Pharmacy: [facility] Start Date: 11/01/23 Status: Ordered Metoprolol Tartrate 25 mg oral tablet Start: 03/29/24 11:34:00 AM EDT, See Instructions, Disp# 60 tab, Refills: 6, TAKE 1 TABLET BY MOUTH TWICE DAILY, Pharmacy: [facility] #187 Start Date: 03/29/24 Status: Ordered miconazole 2% topical cream Start: 06/28/24 3:23:00 PM EDT, 1 appl, topical, Daily, Disp# 4 g, Refills: 0, Pharmacy: [facility] #187 Start Date: 06/28/24 Stop Date: 07/12/24 Status: Ordered montelukast 10 mg oral tablet Start: 11/01/23 1:57:00 PM EST, See Instructions, Disp# 30 tab, Refills: 11, TAKE 1 TABLET BY MOUTHEVERY EVENING, Pharmacy: [facility] #187 Start Date: 11/01/23 Status: Ordered Narcan 4 mg/0.1 mL nasal spray Start: 01/06/24 4:52:00 PM EST, 4 mg =, intranasal, ONCE, Disp# 2 each, Refills: 0, in case of overdose/unresponsive. may repeat every 2 to 3 minutes until patient responds, Pharmacy: [facility] #187 Start Date: 01/06/24 Status: Ordered nitroglycerin 0.4 mg sublingual tablet Start: 07/11/24 1:00:00 PM EDT, 1 tab, SL, q5min, Disp# 100 tab, Refills: 3, PRN: as needed for chest pain, Pharmacy: [facility] #187 Start Date: 07/11/24 Status: Ordered nitroglycerin 0.4 mg sublingual tablet Start: 07/11/24 1:00:00 PM EDT, 1 tab, SL, q5min, Disp# 100 tab, Refills: 3, PRN: as needed for chest pain, Pharmacy: [facility] #187 Start Date: 07/11/24 Status: Ordered One Touch Ultra Test Strips 100 ct Start: 05/29/24 4:18:00 AM EDT, See Instructions, Disp# 100 each, Refills: 0, Test ACHS, Note to Pharmacy: May substitute for glucometer, Pharmacy: [facility] #187 Start Date: 05/29/24 Status: Ordered oxyCODONE 10 mg oral tablet Start: 10/03/24 3:18:00 PM EST, 10 mg =, PO, bid, Disp# 60 tab, Refills: 0, PRN severe, chronic, intractable pain, Pharmacy: [facility] #187 Start Date: 10/03/24 Status: Ordered pantoprazole 40 mg oral delayed release tablet Start: 06/06/24 2:48:00 PM EDT, See Instructions, Disp# 30 tab, Refills: 6, TAKE 1 TABLET BY MOUTH ONCE DAILY, Pharmacy: [facility] #187 Start Date: 06/06/24 Status: Ordered Polysporin 500 units-10,000 units/g topical ointment Start: 11/01/23 1:55:00 PM EST, 1 appl, topical, bid, Disp# 15 g, Refills: 1, Pharmacy: [facility] #187 Start Date: 11/01/23 Stop Date: 11/29/23 Status: Ordered potassium chloride 20 mEq oral tablet, extended release Start: 03/22/24 8:03:00 AM EDT, 1 tab, PO, bid, Disp# 60 tab, Refills: 6, Pharmacy: [facility] #187 Start Date: 03/22/24 Stop Date: 10/18/24 Status: Ordered Salonpas Maximum Strength 4% topical film Start: 11/01/23 1:57:00 PM EST, See Instructions, Disp# 30 film, Refills: 3, do not leave patch on for more than 8 hours at a time, Pharmacy: [facility] #187 Start Date: 11/01/23 Status: Ordered sertraline 50 mg oral tablet Start: 06/06/24 2:48:00 PM EDT, 1 tab, PO, Daily, Disp# 30 tab, Refills: 6, Pharmacy: [facility] #187 Start Date: 06/06/24 Stop Date: 01/02/25 Status: Ordered spironolactone 25 mg oral tablet Start: 07/03/24 4:24:00 PM EDT, 1 tab, PO, Daily, Disp# 30 tab, Refills: 3, Pharmacy: [facility]187 Start Date: 07/03/24 Stop Date: 10/31/24 Status: Ordered Bells [place] Start: 08/12/23 12:52:00 PM EDT Start Date: 08/12/23 Status: Ordered topiramate 100 mg oral tablet Start: 06/06/24 2:48:00 PM EDT, See Instructions, Disp# 90 tab, Refills: 6, TAKE ONE TABLET BY MOUTHEVERY MORNING AND TWO TABLETS AT BEDTIME., Pharmacy: [facility] #[id number] Start Date: 06/06/24 Status: Ordered torsemide 20 mg oral tablet Start: 03/29/24 11:34:00 AM EDT, 2 tab, PO, Daily, Disp# 30 tab, Refills: 4, Pharmacy: [facility] #[id number] Start Date: 03/29/24 Status: Ordered Vagisil 5%-2% vaginal cream Start: 04/12/24 2:27:00 PM EDT, 1 appl, topical, bid, Disp# 28 g, Refills: 0, Pharmacy: [facility] #[id number] Start Date: 04/12/24 Status: Ordered Voltaren 1% topical gel Start: 09/27/24 1:36:00 PM EST, 1 appl, topical, qid, Disp# 100 g, Refills: 4, Pharmacy: [facility] #[id number] Start Date: 09/27/24 Status: Ordered Voltaren 75 mg oral enteric coated tablet Start: 10/25/24 1:56:00 PM EST, 1 tab, PO, bid, Disp# 60 tab, Refills: 1, PRN: as needed for arthritis, Pharmacy: [facility] #[id number] Start Date: 10/25/24 Stop Date: 12/24/24 Status: Ordered Zofran 4 mg oral tablet Start: 12/02/23 11:00:00 AM EST, 1 tab, PO, q12h, Disp# 30 tab, PRN: as needed for nausea/vomiting, Pharmacy: [facility] #[id number] Start Date: 12/02/23 Status: Ordered Mental Status 10/25/24 Barriers to Learning one year None evide nt Mandatory Health Literacy Documentation Yes Health Literacy Communication Barriers N ever Primary Language Polish Problem List Condition Confirmation Course Effective Dates Status H ealth Status Informant Anemia Confirmed Active Anxiety Confirmed Active Arthritis Confirmed Active New onset atrial flutter Confirmed Active Ingrown toenail of both feet Confirmed Active Bronchiectasis Confirmed Active Chronic back pain Confirmed Active CKD (chronic kidney disease), stage IV Confirmed Active Chronic pain Confirmed Active Chronic respiratory failure Confirmed Active [...] 12, 2023 12:54 EDT 5Steve Kimo - DAVIDG pulmonary Diagnosis Diagnosis Type Effective Dates Health Status Clinical Service Informant CKD (chronic kidney disease), stage IV Discharge Diagnosis 10/25/24 Non-Specified Ambulatory dysfunction Discharge Diagnosis 10/25/24 Non-Specified Chronic pain Discharge Diagnosis 10/25/24 Non-Specified Chronic respiratory failure Discharge Diagnosis 10/25/24 Non-Specified CHF (congestive heart failure) Discharge Diagnosis 10/25/24 Non-Specified Fracture of distal femur Discharge Diagnosis 10/25/24 Non-Specified Bed sore Discharge Diagnosis 10/25/24 Non-Specified New onset atrial flutter Discharge Diagnosis 10/25/24 Non-Specified Hospital discharge follow-up Discharge Diagnosis 10/25/24 Non-Specified COPD exacerbation Discharge Diagnosis 10/25/24 Non-Specified Hypothyroid Discharge Diagnosis 10/25/24 Non-Specified Procedures Procedure Date Related Diagnosis Body [...] and an infectious/inflammatory process cannot be excluded. [id number] 25stg 4 ovarian cancer Social History Social History Type Response Tobacco 1 Smoking Status Never smoked cigaret charito Sex Female Sex Representation Female (finding) 1none Patient Care team information Care Team Personnel Name: DO Davila Amanda Position: Resident Member Role: Lifetime Relationship Address: [address] [place] [address] [place] Name: DO Chappell Sameer Position: Resident Member Role: Lifetime Relationship Address: [address] [place] [address] [place] Name: MONISHA Baltazar Christina L Position: Physician - Podiatry Member Role: Lifetime Relationship Address: [address] [address] [place] Name: MD Everardo, Ofe Position: Physician - Family Med Member Role: Primary Care Provider Address: [address] [address] [place] Care Team Related Persons Name: CÉSAR INCOLE
[2024-11-04 06:38] LABS: Basophils # (auto) 0.06 K/uL (0.00-0.20); Basophils % (auto) 0.5 %; Eosinophils # (auto) 0.37 K/uL (0.00-0.50); Eosinophils % (auto) 3.3 %; Hematocrit (blood only) 39.9 % (37.0-47.0); Hemoglobin 11.7 g/dl (12.0-16.0); Immature Granulocytes # (auto) 0.11 K/uL (0.01-0.20); Lymphocytes # (auto) 1.93 K/uL (1.20-3.40); Lymphocytes % (auto) 17.3 %; Mean Corpuscular Hgb Conc 29.3 g/dL (32.0-36.0); Mean Corpuscular Volume 91.9 fL (80.0-100.0); Mean Platelet Volume 9.9 fL (9.4-12.4); Monocytes # (auto) 1.09 K/uL (0.11-0.59); Monocytes % (auto) 9.8 %; Neutrophils % (auto) 68.1 %; Platelet Count 247 K/uL (130-400); RDW Coefficient of Variation 15.5 % (11.5-14.5); RDW Standard Deviation 52.3 fL (36.4-46.3); Red Blood Count 4.34 M/uL (4.20-5.40); White Blood Count 11.16 K/ul (4.8-10.8)
[2024-11-04 06:49] LABS: BUN Creatinine Ratio 22.7 (10-20); Calcium 8.7 mg/dl (8.6-10.3); Creatinine Clr Calc Pharmacy 54.5 ml/min; Potassium 3.6 mmol/L (3.5-5.1)
--- NOTE | 2024-11-04 09:58 | Hospitalist Progress Note ---
Date of Service November 04, 2024 Assessment & Plan (1) Chronic hypoxic respiratory failure: Plan: Permanent tracheostomy in place. Supplemental oxygen as needed to keep saturation greater than 90%. Stable (2) COPD with acute exacerbation: Plan: Actually, there is no acute exacerbation at this time. Continue current management. Stable (3) Acute diastolic (congestive) heart failure: Plan: She has chronic diastolic CHF. No acute exacerbation at this time. Monitor intake and output. Continue diuretic therapy. Stable (4) Tracheostomy in place: Plan: Permanent tracheostomy has been in place for some time (5) Obesity hypoventilation syndrome: Plan: Supportive care (6) Physical deconditioning: Plan: Supportive care. Continue home physical therapy (7) Insulin-requiring or dependent type II diabetes mellitus: Plan: ADA diet. The patient has an insulin pump. Glucose 123 this morning, November 04 (8) HTN (hypertension): Plan: Stable. Continue current medical management (9) Chronic kidney disease, stage 3: Plan: Stable. Monitor intake and output. Serial labs Plan Hopeful return to her home with caregiver tomorrowNovember 05 Admission and Anticipated Discharge Date Admission Date: November 02, 2024 Subjective Easily awakened from sleep. Now alert and oriented. She states that she cannot go home today, November 04, because there is no caregiver at home. She is hopeful this will occur tomorrow, November 05. Treatment plan will remain unchanged. Glucose 123 this morning. Hopefully she can go home tomorrow. Review of Systems 2 Review of Systems: Constitutionalno fever or chills ENTno blurred vision, no double vision, no epistaxis, no sore throat Respiratoryno cough, no wheezing. Chronic dyspnea on exertion Cardiacno palpitations, no chest pain, no syncope Estrella nausea, vomiting, diarrhea, melena, hematochezia GUno urinary retention, no urinary incontinence, no dysuria, no hematuria Musculoskeletalno joint pain, no muscle tenderness Skinno bruising, no rashes, no pruritus Neurono isolated weakness, no paresthesia, no weakness Psychno depression, no anxiety Physical Exam 2 Physical Exam: General-alert and oriented x3, no fever, no chills. Morbidly obese HEENT-head atraumatic and normocephalic, pupils equal and reactive to light, extraocular muscles intact Neck-no lymphadenopathy or thyromegaly, trachea midline with permanent tracheostomy present Chest-diminished breath sounds bilaterally. No rales wheezing or rhonchi Cardio -distant heart tones. Regular rate and rhythm, normal S1 and S2 Abdomen-normal bowel sounds, no hepatosplenomegaly Extremities-chronic appearing edema bilateral lower extremities below the knees from chronic venous insufficiency Skinscabbed lesion right anterior shoulder area which appears chronic Neuro-cranial nerves II through XII intact, motor and sensory function within normal limits, strength symmetrical with generalized weakness due to deconditioning, no focal deficits Psych-normal affect, normal mood Results & Data Results & Data Vital Signs (Past 12 Hours) Vital Signs Temp Pulse Pulse Resp BP Pulse Ox O2 Del Method 11/04/24 08:14 89 18 90 Room Air 11/04/24 07:41 36.6 C 70 20 143/80 H 92 Trach Collar 11/04/24 07:30 85 11/04/24 07:30 Trach Collar 11/04/24 03:26 36.8 C 68 18 127/80 95 Trach Collar 11/03/24 23:19 85 11/03/24 23:08 Trach Collar 11/03/24 22:44 36.9 C 90 20 134/66 96 Trach Collar O2 Flow Rate 11/04/24 08:14 11/04/24 07:41 8 11/04/24 07:30 11/04/24 07:30 11/04/24 03:26 11/03/24 23:19 11/03/24 23:08 5 11/03/24 22:44 8.0 Laboratory Results 11/04/24 05:58 11/04/24 05:58 PG Care Time/CCT Total # of Minutes Spent Total Time Spent with Patient: Total time spent is greater than 50% in coordination of care (as documented) at patient's floor/unit and/or counseling patient: Coding Level of Care Code 44719 SUB INP/OBS CARE 2/35MIN Diagnoses Chronic hypoxic respiratory failure J96.11 COPD with acute exacerbation J44.1 Acute diastolic (congestive) heart failure I50.[address] Z93.0 Obesity hypoventilation syndrome E66.2 Physical deconditioning R53.81 Insulin-requiring or dependent type II diabetes mellitus E11.9; Z79.4 Primary hypertension I10 Hypertension type: primary hypertension Chronic kidney disease, stage 3 N18.30 (8) HTN (hypertension) Hypertension type: primary hypertension Qualified Code(s): I10 - Essential (primary) hypertension
[2024-11-04] MEDS: ALUMINUM/MAGNESIUM/SIMETH (MAALOX MAX) 30 ML UDC PO ONE (14:02)
--- NOTE | 2024-11-04 22:42 | Electrocardiogram Report ---
Test Reason : Blood Pressure : */* mmHG Vent. Rate : 68 BPM Atrial Rate : 68 BPM P-R Int : 236 ms QRS Dur : 134 ms QT Int : 404 ms P-R-T Axes : 266 -6 -65 degrees QTcB Int : 429 ms Sinus rhythm with 1st degree A-V block with occasional Premature ventricular complexes Right bundle branch block Possible Lateral infarct (cited on or before 04-Feb-2024) Inferior infarct (cited on or before 13-Jun-2024) Abnormal ECG When compared with ECG of 16-Sep-2024 16:44, Right bundle branch block has replaced Incomplete right bundle branch block Questionable change in initial forces of Anterolateral leads Premature ventricular complexes are now Present Confirmed by Lev Trejo ([id number]) on 11/04/2024 10:42:10 PM Referred By: REFERRED SELF Confirmed By: Lev Trejo
[2024-11-05 06:50] LABS: Basophils # (auto) 0.07 K/uL (0.00-0.20); Basophils % (auto) 0.6 %; Eosinophils # (auto) 0.42 K/uL (0.00-0.50); Eosinophils % (auto) 3.5 %; Hematocrit (blood only) 40.1 % (37.0-47.0); Hemoglobin 11.9 g/dl (12.0-16.0); Immature Granulocytes % (auto) 0.8 %; Lymphocytes # (auto) 1.63 K/uL (1.20-3.40); Lymphocytes % (auto) 13.5 %; Mean Corpuscular Hgb Conc 29.7 g/dL (32.0-36.0); Mean Corpuscular Volume 91.1 fL (80.0-100.0); Mean Platelet Volume 9.9 fL (9.4-12.4); Monocytes # (auto) 1.07 K/uL (0.11-0.59); Monocytes % (auto) 8.8 %; Neutrophils # (auto) 8.82 K/uL (1.40-6.50); Neutrophils % (auto) 72.8 %; Platelet Count 256 K/uL (130-400); RDW Coefficient of Variation 15.3 % (11.5-14.5); RDW Standard Deviation 51.1 fL (36.4-46.3); White Blood Count 12.11 K/ul (4.8-10.8)
[2024-11-05 07:14] VITALS: TEMP 98.2
[2024-11-05 07:16] LABS: BUN Creatinine Ratio 22.6 (10-20); Calcium 8.7 mg/dl (8.6-10.3); Creatinine Clr Calc Pharmacy 50.8 ml/min; Potassium 3.7 mmol/L (3.5-5.1)
[2024-11-05] MEDS: FAMOTIDINE 20 MG TAB PO PRN (07:22)
[2024-11-05] MEDS: ALBUT/IPRATROP 3MG/0.5MG NEB 3 ML VIAL INH PRN (08:19)
[2024-11-05 08:22] VITALS: RESP 20; O2SAT 91
[2024-11-05 09:47] VITALS: BP 118/67
--- NOTE | 2024-11-05 10:42 | Discharge Summary ---
Date of Service November 05, 2024 Admission HPI Per Admitting Provider The patient is a 69-year-old female with a past medical history including COPD, chronic diastolic CHF, recent admission from 09/14-09/18/2024 for acute respiratory failure with hypoxia due to CHF and COPD exacerbations, CKD stage III, hypertension, general deep physical deconditioning, morbid obesity, hypersomnia with sleep apnea and history of MRSA. She presents to the emergency department due to need for high intensity respiratory care with tracheal secretions over the weekend, may need snf placement. Admission Exam (Per Admitting) Constitutional The patient is awake, alert and oriented 3, morbidly obese, normocephalic and atraumatic, lying in bed and in no acute distress. HEENT--PERRL, EOMI, mucous membranes and oropharynx mildly dry Neck--supple. trachesotomy Heart--normal S1 and S2. No murmurs, rubs or gallops. Lungs--clear bilaterally, no respiratory distress, no accessory muscle use. Abdomen--normal bowel sounds and soft. Extremities--no cyanosis or clubbing. No edema. Dermatologic--normal skin turgor, normal color, no abnormal lymph nodes, no rash. Neurologic--cranial nerves II through XII grossly intact. Rheumatologic--normal range of motion. Psychiatric--normal affect. Discharge Data Consultations 11/02/24 19:05 ED Decision to Admit Stat Hospital Course (1) Chronic hypoxic respiratory failure: Permanent tracheostomy in place. Supplemental oxygen as needed to keep saturation greater than 90%. Stable (2) COPD with acute exacerbation: Actually, there is no acute exacerbation at this time. Continue current management. Stable (3) Acute diastolic (congestive) heart failure: She has chronic diastolic CHF. No acute exacerbation at this time. Monitor intake and output. Continue diuretic therapy. Stable (4) Tracheostomy in place: Permanent tracheostomy has been in place for some time (5) Obesity hypoventilation syndrome: Supportive care (6) Physical deconditioning: Supportive care. Continue home physical therapy (7) Insulin-requiring or dependent type II diabetes mellitus: ADA diet. The patient has an insulin pump. Glucose 123 this morning, November 04 (8) HTN (hypertension): Stable. Continue current medical management (9) Chronic kidney disease, stage 3: Stable. Monitor intake and output. Serial labs Plan d/c home with caregiver Coding Level of Care Code 41124 INP/OBS DISCH >30 MIN Diagnoses Chronic hypoxic respiratory failure J96.11 COPD with acute exacerbation J44.1 Acute diastolic (congestive) heart failure I50.[address] Z93.0 Obesity hypoventilation syndrome E66.2 Physical deconditioning R53.81 Insulin-requiring or dependent type II diabetes mellitus E11.9; Z79.4 Primary hypertension I10 Hypertension type: primary hypertension Chronic kidney disease, stage 3 N18.30 Time Spent (min) 35
[2024-11-05 13:13] VITALS: PULSE 78
--- NOTE | 2024-11-06 05:53 | Electrocardiogram Report ---
Test Reason : Blood Pressure : */* mmHG Vent. Rate : 80 BPM Atrial Rate : 80 BPM P-R Int : 224 ms QRS Dur : 132 ms QT Int : 412 ms P-R-T Axes : 26 -54 20 degrees QTcB Int : 475 ms Sinus rhythm with 1st degree A-V block with occasional Premature ventricular complexes Right bundle branch block Left anterior fascicular block Bifascicular block Possible Lateral infarct (cited on or before 04-Feb-2024) Abnormal ECG When compared with ECG of 02-Nov-2024 17:01, T wave inversion no longer evident in Inferior leads Confirmed by Lev Trejo ([id number]) on 11/06/2024 5:53:01 AM Referred By: REFERRED SELF Confirmed By: Lev Trejo
== END 2024-11-05 15:59 | disposition home or self-care (01) | DRG 191 ==
LOC: ED 16:20 → INTOOBSV 21:22 → SUATTDRO 21:22 → 2S 21:22

== ENCOUNTER 2025-03-07 15:26 | Inpatient (IN) ==
--- NOTE | 2025-03-07 15:59 | Emergency Department Note ---
Impression & Plan Hypoxia, CHF (congestive heart failure) ED Provider Note Diagnosis: Hypoxia, CHF Disposition: Admission CHIEF COMPLAINT: Generalized weakness HPI: Patient 69-year-old female presenting with complaint of generalized weakness over the past 2 to 3 weeks time. Patient today slid out of bed onto her bottom. Patient denies hitting her head or having loss consciousness. Patient has a trach in place and uses 5 L trach collar at night and only oxygen as needed during the day. Patient over the past 2 days time as needed oxygen during the day. Patient oxygen saturation on room air upon arrival to emergency room below 90%. Patient denies fevers or chills. Patient has had increased sputum production. Patient's aide who is bedside states that she believes she is in congestive heart failure and has gained approximately 40 pounds over the past week or 2. PAST MEDICAL HISTORY: See Below PAST SURGICAL HISTORY: See Below SOCIAL HISTORY: See Below HOME MEDICATIONS: See Below ALLERGIES: See Below VITALS: See Below PHYSICAL EXAMINATION: GENERAL: Moderate distress EYE EXAM: Normal conjunctiva. OROPHARYNX: Moist mucus membranes. Grossly normal dentition. NECK: Supple, LUNGS: Diminished breath sounds bilaterally HEART: NSR ABDOMEN: Abdomen soft, non-tender, normo-active bowel sounds, no masses, no rebound or guarding BACK: No CVA TTP. SKIN: No rashes and no bruising. UPPER EXTREMITIES: Upper extremities are grossly normal LOWER EXTREMITIES: Grossly normal, no edema. NEURO EXAM: A&O x3,, normal speech, moves all 4 extremities PSYCH: Cooperative MEDICAL DECISION MAKING: History obtained from: Patient, caregiver at bedside ER Course: Patient 69-year-old female presenting with complaint of worsening shortness of breath. Patient uses 5 to 6 L trach collar at night to sleep but does not use it during the day normally. Patient for the past day to 2 has required to use supplemental oxygen during the day while awake. Patient today reportedly slid out of her bed onto her bottom. Patient denies any injury from this. Patient did not hit her head or have loss consciousness. Patient denies fevers or chills. Patient given 2 breathing treatments by EMS en route to the hospital. Patient's chest x-ray shows pulmonary edema. Patient's EKG without signs of ischemia. Patient found to have slightly elevated BNP. Patient's caregiver believes that she may have increased in weight by 40 pounds over the past couple weeks time. Patient given IV Lasix. Patient admitted to hospital service further treatment and evaluation. Labs (independently interpreted) are significant for: Elevated BNP Imaging results (independently interpreted): Chest x-ray pulmonary edema EKG interpretation (independently interpreted): Normal sinus rhythm no ST segment elevation or depression Medications given: Lasix Consultants: Hospitalist Chronic conditions affecting care: CHF Triage Nursing notes reviewed and agree them. Vital Signs: reviewed and remarkable for: Hypoxia Past Med/Surg History Problem List (Updated 03/08/25 @ 00:13 by Wagner Farah DO) CHF (congestive heart failure) (Acute) Hypoxia (Acute) Obesity hypoventilation syndrome (Acute) Tracheostomy in place (Acute) Chest pain (Acute) Ambulatory dysfunction (Acute) New onset atrial flutter COPD with acute exacerbation (Acute) Acute diastolic (congestive) heart failure Acute respiratory failure with hypoxia (Acute) Skin ulcer of groin, limited to breakdown of skin Parainfluenza infection (Acute) Wheezing (Acute) SOB (shortness of breath) (Acute) Morbid obesity with BMI of 60.0-69.9, adult Insulin-requiring or dependent type II diabetes mellitus Hypothyroidism HTN (hypertension) Physical deconditioning Chronic kidney disease, stage 3 Dyslipidemia, goal LDL below 70 HTN, goal below 130/80 Chronic pain Iron deficiency Chronic hypoxic respiratory failure Diabetic nephropathy Seborrhea Back pain Open wound Lesion of left [place] kidney Ambulatory dysfunction Anemia Left knee pain Pain and swelling of right lower extremity (Acute) Pain and swelling of left lower extremity (Acute) Common migraine without aura (Acute) Hypersomnia with sleep apnea (Acute) Memory loss (Acute) Myoclonus (Acute) Tracheobronchitis (Acute) Palpitations Dyslipidemia (Chronic) MRSA (methicillin resistant staph aureus) culture positive (Chronic) "sputum 11/2015" History of hysterectomy (Chronic) Right ventricular dysfunction (Chronic) Medical History Congestive heart failure Diabetic retinopathy associated with type 2 diabetes mellitus Hypoglycemia Chronic kidney disease, stage 3b C. difficile diarrhea Acute gout Wound, breast Type 2 diabetes mellitus Right bundle branch block Presence of tracheostomy Morbid obesity Weakness Cor pulmonale CHF (congestive heart failure) Chronic diastolic heart failure Chronic obstructive pulmonary disease Generalized weakness Fracture of distal end of right femur Hypothyroidism (acquired) Ureterolithiasis Vitamin D deficiency Adjustment disorder with depressed mood Tinea unguium GERD (gastroesophageal reflux disease) Anxiety Coronary artery disease RASHAAD (obstructive sleep apnea) Sepsis Surgical History History of tonsillectomy and adenoidectomy History of cholecystectomy History of appendectomy Family History Mother Coronary heart disease COPD (chronic obstructive pulmonary disease) Father Suicide Hung himself. Pt found him. Unknown Lung cancer Social History Smoking Status: Never smoker Tobacco Type: Cigarettes Second Hand Exposure: No; Do You Dip or Chew Tobacco: No; Hx Alcohol Use: No Hx Substance Use: No Preferred Language: Maori Communication Ability: Effective Visual Impairment: Limited Hearing Ability: Normal [employer] Chief Creative Officer Required: No Beliefs That Will Affect Care: None marital status: Current Living Situation: Parent Current Living Situation Comment: lives at home with daughter current occupational status: disabled How many Children do You have: 1 Other Information That Helps Us Care for You: No Feels Safe at Home: Yes Safety Concerns: Feels Safe At This Time Diet: regular Diet Comment: Drinks 1 Boost drink supplement in the morning caffeine: Yes (1 coffee daily) Physical Activity Frequency: Does not Exercise Seatbelt Use: always Do you think of yourself as: straight/heterosexual Gender Identity: Female Assistive Devices: Glasses, Lift Chair and Oxygen - Continuous Allergies Allergies Allergy/AdvReac Type Severity Reaction Status Date / Time animal dander Allergy Intermediate Sneezing, Unverified 12/19/24 09:20 itchy watery eyes and Difficulty Breathing Penicillins Allergy Intermediate Hives Verified 12/19/24 09:20 tree and shrub pollen Allergy Intermediate Sneezing, Unverified 12/19/24 09:20 itchy watery eyes and Difficulty Breathing amitriptyline Allergy Unknown CAN'T Verified 12/19/24 09:20 REMEMBER doxycycline Allergy Unknown CAN'T Verified 12/19/24 09:20 REMEMBER guaifenesin Allergy Unknown CAN'T Verified 12/19/24 09:20 REMEMBER metformin Allergy Unknown CAN'T Verified 12/19/24 09:20 REMEMBER phenylephrine Allergy Unknown CAN'T Verified 12/19/24 09:20 REMEMBER pseudoephedrine Allergy Unknown CAN'T Verified 12/19/24 09:20 REMEMBER tetracycline Allergy Unknown CAN'T Verified 12/19/24 09:20 REMEMBER venlafaxine [From Effexor] Allergy Unknown CAN'T Verified 12/19/24 09:20 REMEMBER gabapentin AdvReac Intermediate BECOMES Verified 12/19/24 09:20 AGGRESSIVE Home Meds Home Medications Medication Instructions Recorded Confirmed diclofenac sodium 1 % topical gel 4 g EXT QID PRN Pain 01/15/24 12/19/24 (Voltaren Arthritis Pain) naloxone 4 mg/actuation nasal 4 mg intranasal DIRECTED PRN 01/15/24 12/19/24 spray (Narcan) OVERDOSE bupropion HCl 100 mg tablet,12 hr 100 mg PO UD 02/03/24 12/19/24 sustained-release potassium chloride 20 mEq 20 meq PO BID 02/03/24 12/19/24 tablet,extended release furosemide 80 mg tablet 80 mg PO QAM 06/13/24 12/19/24 isosorbide mononitrate 60 mg 60 mg PO QAM 06/13/24 12/19/24 tablet,extended release 24 hr levothyroxine 200 mcg tablet 200 mcg PO UD 06/13/24 12/19/24 levothyroxine 25 mcg tablet 25 mcg PO UD 06/13/24 12/19/24 metoprolol tartrate 25 mg tablet 25 mg PO BID 06/13/24 12/19/24 topiramate 100 mg tablet 100 mg PO UD 06/13/24 12/19/24 empagliflozin 10 mg tablet 10 mg PO UD 09/14/24 12/19/24 (Jardiance) oxycodone 10 mg tablet 10 mg PO DIRECTED PRN Pain 09/14/24 12/19/24 torsemide 20 mg tablet 40 mg PO QAM 12/19/24 12/19/24 Previous Rx's Medication Instructions Recorded aspirin 81 mg tablet,delayed 81 mg PO QAM #30 tabs 04/06/23 release (Robert Low Dose Aspirin) atorvastatin 40 mg tablet 40 mg PO QPM #30 tabs 04/06/23 folic acid 1 mg tablet 1 mg PO QAM #30 tabs 04/06/23 magnesium oxide 400 mg PO QAM #30 tabs 04/06/23 multivitamin 1 tab PO QAM #30 tabs 05/17/23 nitroglycerin 0.4 mg sublingual 0.4 mg sublingual DIRECTED PRN 04/06/23 tablet Chest Pain #25 tabs pantoprazole 40 mg tablet,delayed 40 mg PO DAILYBB #30 tabs 04/06/23 release sertraline 50 mg tablet 50 mg PO QAM #30 tabs 04/06/23 spironolactone 25 mg tablet 25 mg PO QAM #30 tabs 04/06/23 blood-glucose meter (OneTouch #1 ea 07/21/23 Ultra2 Meter) pen needle, diabetic 32 gauge x #150 ea 08/26/23" (BD Kaitlin 2nd Gen Pen Needle) pen needle, diabetic 32 gauge x #50 ea 08/26/23" (BD Kaitlin 2nd Gen Pen Needle) ipratropium 0.5 mg-albuterol 3 mg 3 ml inhalation Q4H PRN COUGHING, 11/25/23 (2.5 mg base)/3 mL nebulization WHEEZING, SHORTNESS OF BREATH #180 soln mL budesonide 0.5 mg/2 mL suspension 0.5 mg (2 mL) NEB BIDR #120 mL 03/02/24 for nebulization diclofenac sodium 75 mg 75 mg PO BID #60 tabs 03/02/24 tablet,delayed release famotidine 20 mg tablet 20 mg PO DAILY PRN heartburn #30 03/02/24 tabs ipratropium 20 mcg-albuterol 100 1 puff inhalation QID PRN 03/02/24 mcg/actuation mist for inhalation shortness of breath #4 grams (Combivent Respimat) insulin aspart U-100 100 unit/mL See Rx Instructions subcut DAILY 08/21/24 subcutaneous solution (Novolog #100 mL U-100 Insulin aspart) blood sugar diagnostic (OneTouch #400 ea 08/27/24 Ultra Test strips) nebulizers #1 ea 01/17/25 Results & Data (ED) Vital Signs Vital Signs - 24 hr 03/07/25 15:38 03/07/25 15:50 03/07/25 17:32 Temperature 36.4 C L Temperature Source Oral Pulse Rate 84 82 Pulse Rate [Finger] 74 Respiratory Rate 24 18 Blood Pressure 117/76 Blood Pressure [Right Arm] 117/60 Blood Pressure Mean 89 Blood Pressure Mean [Right Arm] 79 Pulse Oximetry 90 97 Oxygen Delivery Method Trach Collar Trach Collar Fraction of Inspired Oxygen 35 SaO2/FiO2 Ratio 257 Sepsis Recent Fever Within 48 Hours No Sepsis New/Unexplained Change in Mental Status No Sepsis Action Taken by Nursing No Action Required 03/07/25 19:30 03/07/25 19:47 Temperature Temperature Source Pulse Rate 76 Pulse Rate [Finger] 75 Respiratory Rate 18 Blood Pressure Blood Pressure [Right Arm] 143/81 H Blood Pressure Mean Blood Pressure Mean [Right Arm] 101 Pulse Oximetry 95 Oxygen Delivery Method Room Air Fraction of Inspired Oxygen SaO2/FiO2 Ratio Sepsis Recent Fever Within 48 Hours Sepsis New/Unexplained Change in Mental Status Sepsis Action Taken by Nursing Laboratory Data 03/07/25 15:35 03/07/25 15:35 Lab Results 03/07/25 03/07/25 Range/Units 15:35 15:35 WBC 11.62 H (4.8-10.8) K/ul RBC 4.60 (4.20-5.40) M/uL Hgb 12.2 (12.0-16.0) g/dl Hct 43.9 (37.0-47.0) % MCV 95.4 (80.0-100.0) fL MCH 26.5 (25.0-34.0) pg MCHC 27.8 L (32.0-36.0) g/dL RDW Std Deviation 60.5 H (36.4-46.3) fL RDW Coeff of Amee 17.4 H (11.5-14.5) % Plt Count 257 (130-400) K/uL MPV 9.5 (9.4-12.4) fL Immature Gran % (Auto) 2.1 % Neut % (Auto) 72.3 % Lymph % (Auto) 15.7 % Bowie % (Auto) 6.9 % Eos % (Auto) 2.4 % Baso % (Auto) 0.6 % Neut # (Auto) 8.40 H (1.40-6.50) K/uL Lymph # (Auto) 1.83 (1.20-3.40) K/uL Bowie # (Auto) 0.80 H (0.11-0.59) K/uL Eos # (Auto) 0.28 (0.00-0.50) K/uL Baso # (Auto) 0.07 (0.00-0.20) K/uL Immature Gran # (Auto) 0.24 H (0.01-0.20) K/uL Absolute Nucleated RBC 0.03 (0.00-0.12) K/uL Nucleated RBC % (auto) 0.3 % Sodium 141 (136-145) mmol/L Potassium 5.0 (3.5-5.1) mmol/L Chloride 108 H (98-107) mmol/L Carbon Dioxide 27 (21-32) mmol/L Anion Gap 6 (3-11) BUN 42 H (6-23) mg/dl Creatinine 1.85 H (0.6-1.2) mg/dl Est Cr Clr Drug Dosing 46.3 ml/min eGFR 29.33 BUN/Creatinine Ratio 22.7 H (10-20) Glucose 154 H (70-99(Fasting)) mg/dl Calcium 8.9 (8.6-10.3) mg/dl Total Bilirubin 0.4 (0.2-1.0) mg/dl AST 33 (13-39) U/L ALT 26 (7-52) U/L Alkaline Phosphatase 97 (34-104) U/L Troponin I High Sens 15.6 H (0-14) pg/ml B-Natriuretic Peptide 146 H (0-100) pg/ml Total Protein 7.8 (6.0-8.3) gm/dl Albumin 3.5 (3.4-5.0) gm/dl Globulin 4.3 H (2.5-4.0) gm/dl Albumin/Globulin Ratio 0.8 L (0.9-2) TSH 11.167 H (0.300-4.500) uIu/ml Free T4 0.73 (0.61-1.60) ng/dl SARS-CoV-2 (PCR) NEGATIVE NEGATIVE (Negative) Influenza Type A (PCR) Negative (Neg) Influenza Type B (PCR) Negative (Neg) RSV (RT-PCR) Negative (Neg) Administered Medications Albuterol (Albut/Ipratrop 3mg/0.5mg Neb 3 Ml Vial) 3 ml NEB Q6R ASIYA; Protocol Stop: 04/07/25 00:59 Last Admin: 03/07/25 23:45 Dose: Not Given Documented By: EML Atorvastatin Calcium (Atorvastatin 40 Mg Tab) 40 mg PO QPM ASIYA Stop: 04/06/25 22:01 Last Admin: 04/17/25 23:02 Dose: 40 mg Documented By: GTH Budesonide (Budesonide 0.5 Mg/2 Ml Vial (Pulmicort)) 0.5 mg NEB BIDR [facility] Stop: 04/06/25 22:01 Last Admin: 03/07/25 23:45 Dose: 0.5 mg Documented By: EML Bupropion HCl (Bupropion Sr 100 Mg Tabcr) 200 mg PO HS [facility] Stop: 04/06/25 22:29 Last Admin: 03/07/25 23:03 Dose: 200 mg Documented By: GTH Diclofenac Sodium (Diclofenac Sodium 75 Mg Tabcr) 75 mg PO BID [facility] Stop: 04/06/25 22:01 Last Admin: 03/07/25 23:01 Dose: 75 mg Documented By: GT Metoprolol Tartrate (Metoprolol Tartrate 25 Mg Tab) 25 mg PO BID [facility] Stop: 04/06/25 22:01 Last Admin: 03/07/25 23:03 Dose: 25 mg Documented By: GT Oxycodone HCl (Oxycodone Hcl Ir 5 Mg Tab (Immediate Release)) 10 mg PO Q6H PRN PRN Reason: Pain Stop: 03/21/25 22:01 Last Admin: 03/07/25 23:13 Dose: 10 mg Documented By: GTH Potassium Chloride (Potassium Chloride Crtab 20 Meq Tabcr) 20 meq PO BID [facility] Stop: 04/06/25 22:01 Last Admin: 03/07/25 23:07 Dose: 20 meq Documented By: GTH Topiramate (Topiramate 100 Mg Tab) 200 mg PO [facility] Stop: 04/06/25 22:29 Last Admin: 03/07/25 23:04 Dose: 200 mg Documented By: GT Discontinued Medications Albuterol (Albut/Ipratrop 3mg/0.5mg Neb 3 Ml Vial) 3 ml NEB NOW STA; Protocol Stop: 03/07/25 15:55 Last Admin: 03/07/25 16:19 Dose: 3 ml Documented By: EVANS Albuterol (Albut/Ipratrop 3mg/0.5mg Neb 3 Ml Vial) Confirm Administered Dose 3 ml .ROUTE .STK-MED ONE Stop: 03/07/25 23:07 Last Admin: 03/07/25 23:45 Dose: 3 ml Documented By: HANDY Furosemide (Furosemide 40 Mg/4 Ml Vial) 40 mg IV ONE ONE Stop: 03/07/25 19:22 Last Admin: 03/07/25 19:50 Dose: 40 mg Documented By: SW Imaging Data Radiologist's Impression: Chest X-Ray 03/07/25 15:53 INDICATION: Chest pain. TECHNIQUE: Frontal radiograph of the chest. COMPARISON: Radiograph 11/02/2024. FINDINGS: Moderate cardiomegaly. Mild pulmonary vascular congestion. No infiltrate, pleural effusion or pneumothorax. No acute osseous abnormality evident. IMPRESSION: Mild pulmonary vascular congestion. Electronically signed by Denis Rosales 03-07-2025 5:00 PM Discharge Plan Visit Data Chief Complaint: Fall Stated Complaint: FALL, CHEST PAIN, SOB ED Provider: Wagner Farah Discharge Problem: Hypoxia, CHF (congestive heart failure) Patient Disposition: Admitted As Inpatient Discharge Instructions Interventions: ED Discharge Assessment Last Done: 03/07/25 21:03
[2025-03-07 16:15] LABS: Basophils # (auto) 0.07 K/uL (0.00-0.20); Basophils % (auto) 0.6 %; Eosinophils # (auto) 0.28 K/uL (0.00-0.50); Eosinophils % (auto) 2.4 %; Hematocrit (blood only) 43.9 % (37.0-47.0); Hemoglobin 12.2 g/dl (12.0-16.0); Immature Granulocytes # (auto) 0.24 K/uL (0.01-0.20); Immature Granulocytes % (auto) 2.1 %; Lymphocytes # (auto) 1.83 K/uL (1.20-3.40); Lymphocytes % (auto) 15.7 %; Mean Corpuscular Hemoglobin 26.5 pg (25.0-34.0); Mean Corpuscular Hgb Conc 27.8 g/dL (32.0-36.0); Mean Corpuscular Volume 95.4 fL (80.0-100.0); Mean Platelet Volume 9.5 fL (9.4-12.4); Monocytes % (auto) 6.9 %; Neutrophils % (auto) 72.3 %; Nucleated RBC # (auto) 0.03 K/uL (0.00-0.12); Nucleated RBC % (auto) 0.3 %; Platelet Count 257 K/uL (130-400); RDW Coefficient of Variation 17.4 % (11.5-14.5); RDW Standard Deviation 60.5 fL (36.4-46.3); White Blood Count 11.62 K/ul (4.8-10.8)
[2025-03-07] MEDS: ALBUT/IPRATROP 3MG/0.5MG NEB 3 ML VIAL NEB STA (16:19)
[2025-03-07 16:36] LABS: Albumin Level 3.5 gm/dl (3.4-5.0); Bilirubin,Total 0.4 mg/dl (0.2-1.0); Calcium 8.9 mg/dl (8.6-10.3)
[2025-03-07 16:40] LABS: Troponin I High Sensitivity 15.6 pg/ml (0-14)
[2025-03-07 16:42] LABS: Albumin Globulin Ratio 0.8 (0.9-2); BUN Creatinine Ratio 22.7 (10-20); Creatinine Clr Calc Pharmacy 46.3 ml/min; Globulin 4.3 gm/dl (2.5-4.0); Total Protein 7.8 gm/dl (6.0-8.3)
[2025-03-07 16:50] LABS: Thyroid Stimulating Hormone 11.167 uIu/ml (0.300-4.500)
--- NOTE | 2025-03-07 17:01 | XRay Report ---
INDICATION: Chest pain. TECHNIQUE: Frontal radiograph of the chest. COMPARISON: Radiograph 11/02/2024. FINDINGS: Moderate cardiomegaly. Mild pulmonary vascular congestion. No infiltrate, pleural effusion or pneumothorax. No acute osseous abnormality evident. IMPRESSION: Mild pulmonary vascular congestion. Electronically signed by Denis Rosales 03-07-2025 5:00 PM
[2025-03-07 17:24] LABS: T4 Free Thyroxine 0.73 ng/dl (0.61-1.60)
[2025-03-07] MEDS: FUROSEMIDE 40 MG/4 ML VIAL IV ONE (19:50)
--- NOTE | 2025-03-07 20:02 | History & Physical Report ---
Date of Service March 07, 2025 Assessment & Plan (1) Obesity hypoventilation syndrome: (2) Acute respiratory acidosis: (3) Acute on chronic heart failure with preserved ejection fraction: (4) Tracheostomy in place: Plan 69-year-old female with significant past medical history of obstructive sleep apnea, obesity hypoventilation syndrome, cor pulmonale, COPD, insulin-dependent diabetes mellitus, chronic nonweightbearing of her right lower extremity due to nonhealing fracture who presents to the emergency room due to shortness of breath. #Acute on chronic heart failure with preserved ejection fraction / RASHAAD / obesity hypoventilation / Acute respiratory failure with acidosis and hypercapnia / tracheostomy in place Lasix 40mg IV BID, paul catheter inserted in the ER Continue metoprolol and Jardiance Similar respiratory acidosis prior admission which improved with diuresis, will repeat VBG in AM, aim O2 around 88-92% #COPD No wheezing on exam to suggest exacerbation but improvement with duoneb in the ER therefore will continue this along with her usual COPD maintenance therapy #T2DM Continue insulin pump with BSG ACHS Continue Jardiane #Chronic pain Continue oxycodone PRN, PDMP checked VTE Prophylaxis - Heparin 5000 units SQ q8h Disposition - admit to PCU Admission and Anticipated Discharge Date Admission Date: March 07, 2025 History of Present Illness Chief Complaint: Shortness of breath Primary Care Provider: Ofe Mcgee MD Whit Connelly is a 69-year-old female with significant past medical history of obstructive sleep apnea, obesity hypoventilation syndrome, cor pulmonale, COPD, insulin-dependent diabetes mellitus, chronic nonweightbearing of her right lower extremity due to nonhealing fracture who presents to the emergency room due to shortness of breath. She feels similar to prior occurrences of heart failure. 2- 3 weeks with increased weakness, productive cough and weight gain of 40lb. Some chills at home. She reports the nebulizer helped her breathing in the ER. She has a tracheostomy but is usually on room air during the day with 5LPM O2 at night. Paul catheter placed in emergency room for accurate I&Os. She is unsure what diuretics she takes currently (both furosemide and torsemide currently listed). No recent change in diet. Allergies Allergy/AdvReac Type Severity Reaction Status Date / Time animal dander Allergy Intermediate Sneezing, Unverified 12/19/24 09:20 itchy watery eyes and Difficulty Breathing Penicillins Allergy Intermediate Hives Verified 12/19/24 09:20 tree and shrub pollen Allergy Intermediate Sneezing, Unverified 12/19/24 09:20 itchy watery eyes and Difficulty Breathing amitriptyline Allergy Unknown CAN'T Verified 12/19/24 09:20 REMEMBER doxycycline Allergy Unknown CAN'T Verified 12/19/24 09:20 REMEMBER guaifenesin Allergy Unknown CAN'T Verified 12/19/24 09:20 REMEMBER metformin Allergy Unknown CAN'T Verified 12/19/24 09:20 REMEMBER phenylephrine Allergy Unknown CAN'T Verified 12/19/24 09:20 REMEMBER pseudoephedrine Allergy Unknown CAN'T Verified 12/19/24 09:20 REMEMBER tetracycline Allergy Unknown CAN'T Verified 12/19/24 09:20 REMEMBER venlafaxine [From Effexor] Allergy Unknown CAN'T Verified 12/19/24 09:20 REMEMBER gabapentin AdvReac Intermediate BECOMES Verified 12/19/24 09:20 AGGRESSIVE Home Medications Medication Instructions Recorded Confirmed Type aspirin 81 mg tablet,delayed 81 mg PO QAM #30 tabs 04/06/23 12/19/24 Rx release (Robert Low Dose Aspirin) atorvastatin 40 mg tablet 40 mg PO QPM #30 tabs 04/06/23 12/19/24 Rx folic acid 1 mg tablet 1 mg PO QAM #30 tabs 04/06/23 12/19/24 Rx magnesium oxide 400 mg PO QAM #30 tabs 04/06/23 12/19/24 Rx multivitamin 1 tab PO QAM #30 tabs 04/06/23 12/19/24 Rx nitroglycerin 0.4 mg sublingual 0.4 mg sublingual DIRECTED PRN 04/06/23 12/19/24 Rx tablet Chest Pain #25 tabs pantoprazole 40 mg tablet,delayed 40 mg PO DAILYBB #30 tabs 04/06/23 12/19/24 Rx release sertraline 50 mg tablet 50 mg PO QAM #30 tabs 04/06/23 12/19/24 Rx spironolactone 25 mg tablet 25 mg PO QAM #30 tabs 04/06/23 12/19/24 Rx blood-glucose meter (OneTouch #1 ea 07/21/23 12/19/24 Rx Ultra2 Meter) pen needle, diabetic 32 gauge x #150 ea 08/26/23 12/19/24 Rx 5/32" (BD Kaitlin 2nd Gen Pen Needle) pen needle, diabetic 32 gauge x #50 ea 08/26/23 12/19/24 Rx 5/32" (BD Kaitlin 2nd Gen Pen Needle) ipratropium 0.5 mg-albuterol 3 mg 3 ml inhalation Q4H PRN COUGHING, 11/25/23 12/19/24 Rx (2.5 mg base)/3 mL nebulization WHEEZING, SHORTNESS OF BREATH #180 soln mL diclofenac sodium 1 % topical gel 4 g EXT QID PRN Pain 01/15/24 12/19/24 History (Voltaren Arthritis Pain) naloxone 4 mg/actuation nasal 4 mg intranasal DIRECTED PRN 01/15/24 12/19/24 History spray (Narcan) OVERDOSE bupropion HCl 100 mg tablet,12 hr 100 mg PO UD 02/03/24 12/19/24 History sustained-release potassium chloride 20 mEq 20 meq PO BID 02/03/24 12/19/24 History tablet,extended release budesonide 0.5 mg/2 mL suspension 0.5 mg (2 mL) NEB BIDR #120 mL 03/02/24 12/19/24 Rx for nebulization diclofenac sodium 75 mg 75 mg PO BID #60 tabs 03/02/24 12/19/24 Rx tablet,delayed release famotidine 20 mg tablet 20 mg PO DAILY PRN heartburn #30 03/02/24 12/19/24 Rx tabs ipratropium 20 mcg-albuterol 100 1 puff inhalation QID PRN 03/02/24 12/19/24 Rx mcg/actuation mist for inhalation shortness of breath #4 grams (Combivent Respimat) furosemide 80 mg tablet 80 mg PO QAM 06/13/24 12/19/24 History isosorbide mononitrate 60 mg 60 mg PO QAM 06/13/24 12/19/24 History tablet,extended release 24 hr levothyroxine 200 mcg tablet 200 mcg PO UD 06/13/24 12/19/24 History levothyroxine 25 mcg tablet 25 mcg PO UD 06/13/24 12/19/24 History metoprolol tartrate 25 mg tablet 25 mg PO BID 06/13/24 12/19/24 History topiramate 100 mg tablet 100 mg PO UD 06/13/24 12/19/24 History insulin aspart U-100 100 unit/mL See Rx Instructions subcut DAILY 08/21/24 12/19/24 Rx subcutaneous solution (Novolog #100 mL U-100 Insulin aspart) blood sugar diagnostic (OneTouch #400 ea 08/27/24 12/19/24 Rx Ultra Test strips) empagliflozin 10 mg tablet 10 mg PO UD 09/14/24 12/19/24 History (Jardiance) oxycodone 10 mg tablet 10 mg PO DIRECTED PRN Pain 09/14/24 12/19/24 History torsemide 20 mg tablet 40 mg PO QAM 12/19/24 12/19/24 History nebulizers #1 ea 01/17/25 Rx Past Med/Surg History Problem List (Updated 03/08/25 @ 04:49 by Gregory Jensen MD) Acute on chronic heart failure with preserved ejection fraction Acute respiratory acidosis CHF (congestive heart failure) (Acute) Hypoxia (Acute) Obesity hypoventilation syndrome (Acute) Tracheostomy in place (Acute) Chest pain (Acute) Ambulatory dysfunction (Acute) New onset atrial flutter Acute diastolic (congestive) heart failure Acute respiratory failure with hypoxia (Acute) Skin ulcer of groin, limited to breakdown of skin Parainfluenza infection (Acute) Wheezing (Acute) SOB (shortness of breath) (Acute) Morbid obesity with BMI of 60.0-69.9, adult Insulin-requiring or dependent type II diabetes mellitus Hypothyroidism HTN (hypertension) Physical deconditioning Chronic kidney disease, stage 3 Dyslipidemia, goal LDL below 70 HTN, goal below 130/80 Chronic pain Iron deficiency Chronic hypoxic respiratory failure Diabetic nephropathy Seborrhea Back pain Open wound Lesion of left [place] kidney Ambulatory dysfunction Anemia Left knee pain Pain and swelling of right lower extremity (Acute) Pain and swelling of left lower extremity (Acute) Common migraine without aura (Acute) Hypersomnia with sleep apnea (Acute) Memory loss (Acute) Myoclonus (Acute) Tracheobronchitis (Acute) Palpitations Dyslipidemia (Chronic) MRSA (methicillin resistant staph aureus) culture positive (Chronic) "sputum 11/2015" History of hysterectomy (Chronic) Right ventricular dysfunction (Chronic) Medical History Congestive heart failure Diabetic retinopathy associated with type 2 diabetes mellitus Hypoglycemia Chronic kidney disease, stage 3b C. difficile diarrhea Acute gout Wound, breast Type 2 diabetes mellitus Right bundle branch block Presence of tracheostomy Morbid obesity Weakness Cor pulmonale CHF (congestive heart failure) Chronic diastolic heart failure Chronic obstructive pulmonary disease Generalized weakness Fracture of distal end of right femur Hypothyroidism (acquired) Ureterolithiasis Vitamin D deficiency Adjustment disorder with depressed mood Tinea unguium GERD (gastroesophageal reflux disease) Anxiety Coronary artery disease RASHAAD (obstructive sleep apnea) Sepsis Surgical History History of tonsillectomy and adenoidectomy History of cholecystectomy History of appendectomy Family History Mother Coronary heart disease COPD (chronic obstructive pulmonary disease) Father Suicide Hung himself. Pt found him. Unknown Lung cancer Social History Smoking Status: Never smoker Tobacco Type: Cigarettes Second Hand Exposure: No; Do You Dip or Chew Tobacco: No; Hx Alcohol Use: No Hx Substance Use: No Preferred Language: Sinhala Communication Ability: Effective Visual Impairment: Limited Hearing Ability: Normal Technologist Infectious Disease Required: No Beliefs That Will Affect Care: None marital status: Current Living Situation: Parent Current Living Situation Comment: lives at home with daughter current occupational status: disabled How many Children do You have: 1 Other Information That Helps Us Care for You: No Feels Safe at Home: Yes Safety Concerns: Feels Safe At This Time Diet: regular Diet Comment: Drinks 1 Boost drink supplement in the morning caffeine: Yes (1 coffee daily) Physical Activity Frequency: Does not Exercise Seatbelt Use: always Do you think of yourself as: straight/heterosexual Gender Identity: Female Assistive Devices: Glasses, Lift Chair and Oxygen - Continuous Review of Systems Review of Systems: All systems reviewed & are unremarkable except as noted in HPI & below Physical Exam Constitutional: WD/WN, vitals as above Respiratory: + labored breathing, + uses accessory mu scles and able to speak in complete sentences; no audible wheezes Auscultation: + diminished lung sounds (bibasal); no crackles and no wheezes Cardiovascular: Rate/Rhythm: regular rate and regular rhythm Heart Sounds: no murmur Extremities: normal capillary refill and + pedal edema (1+ b/l equal); no calf tenderness Gastrointestinal (Abdomen): Large abdominal pannus Skin: excoriation lu on arm and abdomen without surrounding cellulitic changes Neurologic: awake; not confused Psychiatric: A+Ox3, euthymic affect Results & Data Results & Data Vital Signs (Past 12 Hours) Vital Signs Temp Pulse Pulse Resp BP BP Pulse Ox 03/07/25 19:30 75 18 143/81 H 95 03/07/25 17:32 74 18 117/60 97 03/07/25 15:50 82 03/07/25 15:38 36.4 C L 84 24 117/76 90 O2 Del Method FiO2 03/07/25 19:30 Room Air 03/07/25 17:32 Trach Collar 03/07/25 15:50 03/07/25 15:38 Trach Collar 35 Laboratory Results Abnormal lab results 03/07/25 03/07/25 Range/Units 15:35 22:37 WBC 11.62 H (4.8-10.8) K/ul MCHC 27.8 L (32.0-36.0) g/dL RDW Std Deviation 60.5 H (36.4-46.3) fL RDW Coeff of Amee 17.4 H (11.5-14.5) % Neut # (Auto) 8.40 H (1.40-6.50) K/uL [place] # (Auto) 0.80 H (0.11-0.59) K/uL Immature Gran # (Auto) 0.24 H (0.01-0.20) K/uL VBG pH 7.24 L (7.36-7.41) VBG pCO2 68 H (38-50) mmHg Chloride 108 H (98-107) mmol/L BUN 42 H (6-23) mg/dl Creatinine 1.85 H (0.6-1.2) mg/dl BUN/Creatinine Ratio 22.7 H (10-20) Glucose 154 H (70-99(Fasting)) mg/dl Troponin I High Sens 15.6 H (0-14) pg/ml B-Natriuretic Peptide 146 H (0-100) pg/ml Globulin 4.3 H (2.5-4.0) gm/dl Albumin/Globulin Ratio 0.8 L (0.9-2) TSH 11.167 H (0.300-4.500) uIu/ml Diagnostic Findings CXR INDICATION: Chest pain. TECHNIQUE: Frontal radiograph of the chest. COMPARISON: Radiograph 11/02/2024. FINDINGS: Moderate cardiomegaly. Mild pulmonary vascular congestion. No infiltrate, pleural effusion or pneumothorax. No acute osseous abnormality evident. IMPRESSION: Mild pulmonary vascular congestion. Medications Administered ER Medications Given: Duoneb 3ml Furosemide 40mg IV ECG Rate (beats per minute): 80 Rhythm: normal sinus Findings: + 1st degree AV block, + LAFB and + RBBB Comparison ECG Date: from (November 03, 2024) Change: no significant change Code Status & VTE Plan Code Status Full VTE Prophylaxis Plan VTE Prophylaxis will be ordered: Yes PG Care Time/CCT Total # of Minutes Spent Total Time Spent with Patient: Total time spent is greater than 50% in coordination of care (as documented) at patient's floor/unit and/or counseling patient: Coding Level of Care Code 64788 INT INP/OBS CARE 3/75MIN Diagnoses Obesity hypoventilation syndrome E66.2 Acute respiratory acidosis J96.02 Acute on chronic heart failure with preserved ejection fraction I50.[address] Z93.0
[2025-03-07 20:52] LABS: Influenza A virus by PCR Negative (Neg); Influenza B virus by PCR Negative (Neg); RSV by PCR Negative (Neg); SARS CoV2 RNA(COVID-19) Ceph NEGATIVE (Negative)
[2025-03-07] MEDS ORDERED: GLUCOSE 10 TAB/TUBE PO PRN (22:02)
[2025-03-07] MEDS ORDERED: CARBOHYDRATES FOR HYPOGLYCEMIA PO PRN (22:02)
[2025-03-07] MEDS ORDERED: buPROPion SR 100 MG TABCR PO SCH (22:02)
[2025-03-07] MEDS ORDERED: GLUCOSE 40% GEL 15 GM TUBE PO PRN (22:02)
[2025-03-07] MEDS ORDERED: DEXTROSE 50% 50 ML SYRINGE IV PRN (22:02)
[2025-03-07] MEDS ORDERED: GLUCAGON FOR INJ 1 MG VIAL SQ PRN (22:02)
[2025-03-07 22:45] LABS: Base Excess VBG 0 mEq/L; HCO3 VBG 29 mmol/L; Oxygen Saturation VBG < 60.0 %; PCO2 VBG 68 mmHg (38-50); PO2 VBG 21 mmHg; pH VBG 7.24 (7.36-7.41)
[2025-03-07] MEDS: DICLOFENAC SODIUM 75 MG TABCR PO SCH (23:01)
[2025-03-07] MEDS: ATORVASTATIN 40 MG TAB PO SCH (23:02)
[2025-03-07] MEDS: METOPROLOL TARTRATE 25 MG TAB PO SCH (23:03)
[2025-03-07] MEDS: buPROPion SR 100 MG TABCR PO SCH (23:03)
[2025-03-07] MEDS: TOPIRAMATE 100 MG TAB PO SCH (23:04)
[2025-03-07] MEDS: POTASSIUM CHLORIDE CRTAB 20 MEQ TABCR PO SCH (23:07)
[2025-03-07] MEDS: oxyCODONE HCL IR 5 MG TAB (IMMEDIATE RELEASE) PO PRN (23:13)
[2025-03-07] MEDS: BUDESONIDE 0.5 MG/2 ML VIAL (PULMICORT) NEB SCH (23:45)
[2025-03-07] MEDS: ALBUT/IPRATROP 3MG/0.5MG NEB 3 ML VIAL ONE (23:45)
[2025-03-07] MEDS: ALBUT/IPRATROP 3MG/0.5MG NEB 3 ML VIAL NEB SCH (23:45)
--- OUTSIDE RECORDS SUMMARY | 2025-03-08 00:35 | External Medical Summary | Continuity of Care Document ---
Author Name Unknown Organization [facility] [address] [facility] [address] [place] [id number] Care Team Providers Care Steel Turner Name Role Phone Everardo Ofe Primary Care Physician [phone] Encounter [facility] [id number] Date(s): 01/10/25 - 01/10/25 [facility] 0 [address] [facility] 207 [facility] [address] [address] [phone] Encounter Diagnosis Cellulitis(Discharge Diagnosis) - 01/10/25 Discharge Disposition: Home or Self Care Attending Physician: MD Bradford Christopher Encounter Type: Clinic Allergies, Adverse Reactions, Alerts Substance Criticality Severity [...] loss o f balance causing fall Active Assessment and Plan Extracted from: Title:TeleHealth Visit Note Author:DO Grey Eri c Date:01/10/25 1. Cellulitis -Unable to visualize area due to being on telehealth. States that there is some warmth and itching of her wound on her inner thigh. -Has wound dressing in place. -Recommend patient reach out and have wound care come to see her immediately. Will home health reach out to me about possible recommendations. -Given that patient has multiple comorbidities and cellulitic infection could possibly be catastrophic will send in Keflex 500 mg 3 times daily for 7 days and cessation met this is a cellulitic infection. -Did recommend to patient to hold off on starting medication until she sees wound care tomorrow. Though overnight if she starts to have fevers or the redness and warmth spreads she should begin starting treatment. -Will try to have patient have more consistent come into office rather than telehealth as it is hard to assess her multiple comorbidities over telehealth. Immunizations Given and Recorded Vaccine Date Status Refusal Reason influenza virus vaccine, inactivated 08/01/24 Govind rded influenza virus vaccine, inactivated 08/12/23 [...] bivalent 1 10/26/22 R ecorded SARS-CoV-2 mRNA ([id number]) 2 06/08/22 Recorded SARS-CoV-2 (COVID-19) mRNA BNT-162b2 vax 03/05/21 Recorded SARS-CoV-2 (COVID-19) mRNA BNT-162b2 vax 02/12/21 Recorded pneumococcal 23-valent vaccine 3 09/27/16 Recorded pneumococcal 13-valent vaccine 04/29/15 Recorded tetanus/diphtheria/pertuss, acel (Tdap) 4 07/29/11 Recorded 1Result Comment: 2023-11-01: Historical information-source unspecified 2Result Comment: 2023-11-01: Historical information-source unspecified 3Result Comment: 2020-01-15: Historical information-source unspecified 4Result Comment: 2020-01-15: Historical information-source unspecified Mental Status 01/10/25 Barriers to Learning one year None evide nt Mandatory Health Literacy Documentation Yes Health Literacy Communication Barriers N ever Primary Language Chinese Problem List Condition Confirmation Course Effective Dates [...] 2on 5L O2 qHS per Dr. Mcgee 3DrSuyapa Wick paz 4URINE, >100 THOUSAND COLONIES/ML ESCHERICHIA COLI This organism produces an extended-spectrum beta-lactamase (ESBL), Date of Service: September 12, 2023 12:54 EDT 5Steve Kimo - [facility] pulmonary Diagnosis Diagnosis Type Effective Dates Health Status Clini bambi Service Informant Cellulitis Discharge Diagnosis 01/10/25 Non-Specified Procedures Procedure Date Related Diagnosis Body [...] x-ray 17 02/27/18 Completed Chest x-ray 18 3/1/18 Completed Chest x-ray 19 01/16/18 Completed Chest [...] and an infectious/inflammatory process cannot be excluded. [id number] 25stg 4 ovarian cancer Social History Social History Type Response Tobacco 1 Smoking Status Never smoked cigaret charito Sex Female Sex Representation Female (finding) 1none FCM Outpt Note * DO Palacios Franklin J: MODIFY DO Palacios Franklin J: MODIFY Event Display: FCM Outpt Note Authored Date: [id number] TeleHealth Visit Note I have confirmed the patient’s name and date of . The patient has consented to this service,and I have advised the patient that this is a billable visit for which they may be subject to a copay. The patient initiated this visit after they were informed of the availability of TeleHealth for this medically necessary visit. I am located at my office. The patient is located at home. This visit was conducted via live audio/video technology via [employer]. Chief Complaint Discuss lab results. Possible celulitis on rt leg. Leg is seeping. History of Present Illness Patient is a 69-year-old female who presents on telehealth for possibility of cellulitis. Patient states that on the inside of her thigh where her wound is is becoming very itchy and warm aswell as painful. There is no odor but is very wet and drains. Having chills but no fevers. She has been putting topical cream on it. Denies any shortness of breath. Or spreading of the wound. Does see home health and has wound care. States that these issues started after her last visit with wound care. Plans to see wound care tomorrow. Physical Exam Eyes: No scleral injection or discharge. ENT: Moist mucous membranes. Lungs: Trach in place Neurologic: Grossly intact cranial nerves Assessment/Plan 1. Cellulitis -Unable to visualize area due to being on telehealth. States that there is some warmth and itching of her wound on her inner thigh. -Has wound dressing in place. -Recommend patient reach out and have wound care come to see her immediately. Will home health reach out to me about possible recommendations. -Given that patient has multiple comorbidities and cellulitic infection could possibly be catastrophic will send in Keflex 500 mg 3 times daily for 7 days and cessation met this is a cellulitic infection. -Did recommend to patient to hold off on starting medication until she sees wound care tomorrow. Though overnight if she starts to have fevers or the redness and warmth spreads she should begin starting treatment. -Will try to have patient have more consistent come into office rather than telehealth as it is hard to assess her multiple comorbidities over telehealth. Attestation I reviewed the clinical history and exam findings that were obtainable through telehealth. Unfortunately, complete exam is not possible via telehealth. Agree with Keflex empirically for time being until home nursing can evaluate tomorrow. Agree the impression and plan as noted in resident documentation above. Problem List/Past Medical History Ongoing Ambulatory dysfunction Anemia Anxiety Arthritis Bronchiectasis CHF (congestive heart failure) Chronic back pain Chronic pain Chronic respiratory failure Chronic right heart failure CKD (chronic kidney disease), stage IV Coronary artery disease Depression Diabetic neuropathy Distal radius fracture, left Fracture of distal femur Glaucoma History of ovarian cancer Hoarding behavior Hyperlipidemia Hypertension Hypothyroid Ingrown toenail of both feet Insulin dependent diabetes mellitus Left knee DJD Left lumbar radiculopathy Migraine Morbid obesity Multiple drug resistant organism (MDRO) culture positive New onset atrial flutter Obesity hypoventilation syndrome Pain of right great toe Severe persistent asthma Status post tracheostomy Resolved Impaired mobility Ovarian cancer Right foot pain Procedure/Surgical History •Echocardiogram| Service Date: 10/02/2022•X-ray| Service Date: 03/25/2022•X-ray| Service Date: 03/25/2022•CAT scan| Service Date: 03/25/2022•Chest x-ray| Service Date: 03/23/2022•X-ray| Service Date: 02/25/2022•Plain X-ray of left forearm| Service Date: 11/25/2021•Chest X- ray| Service Date: 11/25/2021•Chest X-ray| Service Date: 06/08/2021•Echocardiogram| Service Date: 04/15/2021•LOWER EXTREMITY STUDY| Service Date: 04/14/2021•Venous doppler LE BI| Service Date: 04/14/2021 •Diabetic retinal eye exam| Service Date: 07/07/2020•X-ray of right knee| Service Date: 06/20/2020•Duplex scan of lower limb veins| Service Date: 06/23/2018•Chest x-ray| Service Date: 06/12/2018•Chest x-ray| Service Date: 02/27/2018•Chest x-ray| Service Date: 01/19/2018•Chest x-ray| Service Date: 01/16/2018•Chest x-ray| Service Date: 01/15/2018•Chest x-ray| Service Date: 01/10/2018•Diagnostic mammogram| Service Date: 09/30/2017•Chest x-ray| Service Date: 01/15/2016•H/O: tracheostomy| Service Date: 02/29/2008•Tonsillectomy and adenoidectomy•Cholecystectomy•Appendic ectomy•RENE BSO - Total abdominal hysterectomy and bilateral salpingo-oophorectomy Medications acetaminophen(acetaminophen 325 mg oral tablet) albuterol(Albuterol (Eqv-ProAir HFA) 90 mcg/inh inhalation aerosol), 2 puff, inhaled, q6h, 5 refills albuterol-ipratropium(albuterol-ipratropium 2.5 mg-0.5 mg/3 mL inhalation solution), 3 mL, inhaled,q6h, PRN, 5 refills atorvastatin(atorvastatin 40 mg oral tablet), 40 mg= 1 tab, PO, Daily, 3 refills bacitracin-polymyxin B topical(Polysporin 500 units-10,000 units/g topical ointment), 1 appl, topical, bid, 1 refills benzocaine-resorcinol topical(Vagisil 5%-2% vaginal cream), 1 appl, topical, bid budesonide(budesonide 0.5 mg/2 mL inhalation suspension), 0.5 mg= 2 mL, NEB, bid, 2 refills buPROPion(buPROPion 100 mg/12 hours (SR) oral tablet, extended release), See Instructions, 2 refills camphor-menthol topical([place]) cephalexin(Keflex 500 mg oral capsule), 500 mg= 1 cap, PO, tid diabetes supplies(One Touch Ultra Test Strips 100 ct), See Instructions diclofenac(Voltaren 75 mg oral enteric coated tablet), 75 mg= 1 tab, PO, bid, PRN, 1 refills diclofenac topical(Voltaren 1% topical gel), 1 appl, topical, qid, 4 refills docusate(docusate sodium 100 mg oral capsule), 100 mg= 1 cap, PO, bid famotidine(famotidine 20 mg oral tablet), 20 mg= 1 tab, PO, Daily folic acid(folic acid 1 mg oral tablet), See Instructions, 6 refills hydrocortisone topical(hydrocortisone 1% topical cream), 1 appl, topical, bid, 1 refills insulin lispro(HumaLOG Vial 100 units/mL injectable solution), 1 unit, subQ, Daily, 4 refills isosorbide mononitrate(isosorbide mononitrate 60 mg oral tablet, extended release), See Instructions, 3 refills levothyroxine(levothyroxine 25 mcg (0.025 mg) oral tablet), 25 mcg= 1 tab, PO, Daily, 6 refills levothyroxine(levothyroxine 200 mcg (0.2 mg) oral tablet), 200 mcg= 1 tab, PO, Daily, 6 refills lidocaine topical(Salonpas Maximum Strength 4% topical film), See Instructions, 3 refills loratadine(loratadine 10 mg oral tablet), 10 mg= 1 tab, PO, Daily, 6 refills melatonin metOLazone(metOLazone 2.5 mg oral tablet), 2.5 mg= 1 tab, PO, Daily, 4 refills metoprolol(Metoprolol Tartrate 25 mg oral tablet), See Instructions, 6 refills miconazole topical(miconazole 2% topical cream), 1 appl, topical, Daily montelukast(montelukast 10 mg oral tablet), See Instructions, 11 refills naloxone(Narcan 4 mg/0.1 mL nasal spray), 4 mg, intranasal, ONCE nitroglycerin(nitroglycerin 0.4 mg sublingual tablet), 0.4 mg= 1 tab, SL, q5min, PRN, 3 refills nitroglycerin(nitroglycerin 0.4 mg sublingual tablet), 0.4 mg= 1 tab, SL, q5min, PRN, 3 refills ondansetron(Zofran 4 mg oral tablet), 4 mg= 1 tab, PO, q12h, PRN oxyCODONE(oxyCODONE 10 mg oral tablet), 10 mg, PO, bid pantoprazole(pantoprazole 40 mg oral delayed release tablet), See Instructions, 6 refills potassium chloride(potassium chloride 20 mEq oral tablet, extended release), 20 mEq= 1 tab, PO, bid, 6 refills sertraline(sertraline 50 mg oral tablet), 50 mg= 1 tab, PO, Daily spironolactone(spironolactone 25 mg oral tablet), 25 mg= 1 tab, PO, Daily, 3 refills topiramate(topiramate 100 mg oral tablet), See Instructions, 6 refills torsemide(torsemide 20 mg oral tablet), 40 mg= 2 tab, PO, Daily, 4 refills zinc oxide topical(Desitin 40% topical paste), 1 appl, topical, 5x/Day, 6 refills Allergies Elavil (Moderate) Violent behavior Neurontin (Moderate) Violent behavior Duratuss DM (Mild) unknown Glucophage (Mild) Nausea amoxicillin (Mild) Rash doxycycline (Mild) unknown penicillin (Mild) Hives Cats difficulty breathing Lyrica "jerks", loss of balance causing fall fentaNYL hallucinations, foggy brain, spaced out Social History Smoking Status Never smoked cigarettes Alcohol - Comments: none Employment/School Status:Retired Description:[employer]. Home/Environment Lives with:Children Other risks in environment:Pets/Animal exposure - Comments: lives with daughter, Tobacco - Comments: none Intake (IView) Smoking History Cigarette smoker: Never smoked cigarettes Tobacco Product Use: Never used other tobacco products Family History Alcoholism: PGF. COPD: Mother. Cancer: PGF. Glaucoma: Mother and Brother. Heart attack: MGM, PGF and PGM. Hypertension: Mother, Brother and MGM. Malignant tumor of lung: Brother. Type II diabetes mellitus: Mother, MGM and PGM. Health Status Family Member(s) Immunizations Vaccine Date Status influenza virus vaccine, inactivated 08/01/2024 Recorded influenza virus vaccine, inactivated 08/12/2023 Given SARS-CoV-2 mRNA (Pfizer 12+) bivalent 10/26/2022 Recorded Comments : 2023-11-01: Historical information-source unspecified SARS-CoV-2 mRNA ([id number]) 06/08/2022 Recorded Comments : 2023-11-01: Historical information-source unspecified influenza virus vaccine, inactivated 11/19/2021 Given SARS-CoV-2 [...] vaccine, inactivated 08/28/2010 Recorded Recommendations Health Maintenance Pending (in the next year) OverDue Kidney Health Evaluation due 05/14/21 and every 366 day Breast Cancer Screening due 09/26/22 and every 731 day Colorectal Cancer Screening due 01/10/23 and every 3 Months Diabetic Eye Exam due 01/27/23 and every 366 day Diabetes Management A1c due 09/06/24 and every 366 day Due Adult COVID-19 Vaccination due 01/12/25 Unknown Frequency Adult Social Determinants of Health Screening due 01/12/25 Unknown Frequency Adult Tdap/Td Vaccine due 01/12/25 Unknown Frequency Body Mass Index due 01/12/25 Unknown Frequency Falls Plan of Care due 01/12/25 Unknown Frequency Medicare Annual Wellness Visit due 01/12/25 and every 1 year Pneumococcal Vaccine Older Adults due 01/12/25 One-time only Shingles Vaccine due 01/12/25 One-time only Due In Future Adult Influenza Vaccine not due until 05/21/25 and every 1 year Satisfied (in the past 1 year) Satisfied Adult Influenza Vaccine on 08/01/24. Satisfied by MD Sanchez, Rahul Kidney Health Evaluation on 04/12/24. Satisfied by Contributor_system, [employer] Electronic Signature on File Electronically Reviewed/Signed by: Jasper Grey DO Author Signature Dt/Tm:01/12/2025 10:37 AM Resident Department of Family Medicine Electronically Reviewed/Signed by: Gonzalo Palacios DO Cosigner Signature Dt/Tm: 01/12/2025 05:59PM Department of Family Medicine EB Patient Care team information Care Team Personnel Name: DO Davila Amanda Position: Resident Member Role: Lifetime Relationship Address: [address] [place] [address] Telecom: [phone] Name: DO Chappell Sameer Position: Resident Member Role: Lifetime Relationship Address: [address] [place] [address] Telecom: [phone] Name: MONISHA Baltazar Christina L Position: Physician - Podiatry Member Role: Lifetime Relationship Address: [address] [place] [address] Telecom: [phone] Name: MD Everardo, Ofe Position: Physician - Family Med Member Role: Primary Care Provider Address: [address] [place] [address] Telecom: [phone] Care Team Related Persons Name: CÉSAR NICOLE Insurance Providers Guarantor name: ANN Ansari [facility] Health Plan Information #: 1 Payer: [facility] Member Number: [id number] Policy Number: NA Group Number: [id number] Health Plan Information #: 2 Payer: [place] [facility] Member Number: [id number] Policy Number: NA Group Number: [id number] Health Plan Information #: 3 Payer: MEDICARE Member Number: NA Policy Number: NA Group Number: NA Health Plan Information #: 4 Payer: [place] Member Number: NA Policy Number: NA Group Number: NA Health Plan Information #: 5 Payer: [facility] Member Number: NA Policy Number: NA Group Number: NA
[2025-03-08] MEDS: LEVOTHYROXINE SODIUM 25 MCG TABLET PO SCH (05:51)
[2025-03-08] MEDS: LEVOTHYROXINE SODIUM 200 MCG TABLET PO SCH (05:51)
[2025-03-08] MEDS: PANTOprazole 40 MG TAB PO SCH (06:27)
[2025-03-08] MEDS: HEPARIN SOD 5,000 UNIT/0.5 ML VIAL SQ SCH (06:27)
[2025-03-08 06:45] LABS: Base Excess VBG 0.5 mEq/L; HCO3 VBG 29 mmol/L; PCO2 VBG 63 mmHg (38-50); PO2 VBG 41 mmHg; pH VBG 7.27 (7.36-7.41)
--- NOTE | 2025-03-08 06:54 | Hospitalist Progress Note ---
Date of Service March 08, 2025 Assessment & Plan (1) Obesity hypoventilation syndrome: (2) Acute respiratory acidosis: (3) Acute on chronic heart failure with preserved ejection fraction: (4) Tracheostomy in place: Plan 69-year-old female with significant past medical history of obstructive sleep apnea, obesity hypoventilation syndrome, cor pulmonale, COPD, insulin-dependent diabetes mellitus, chronic nonweightbearing of her right lower extremity due to nonhealing fracture who presents to the emergency room due to shortness of breath. #Acute on chronic heart failure with preserved ejection fraction / RASHAAD / obesity hypoventilation / Acute respiratory failure with acidosis and hypercapnia / tracheostomy in place -Lasix 40mg IV BID, paul catheter inserted in the ER -Continue metoprolol and Jardiance -Similar respiratory acidosis prior admission which improved with diuresis, will repeat VBG in AM, aim O2 around 88-92% - Echo ordered for today pending read. Consult cardiology for further recommendations. #COPD -No wheezing on exam to suggest exacerbation but improvement with duoneb in the ER therefore will continue this along with her usual COPD maintenance therapy #T2DM -Continue insulin pump with BSG ACHS. Unfortunately out of supplies at this time. Will change to sliding scale insulin with glucose checks at meals. -Continue Jardiane - art educator consulted. Will get hemoglobin A1c and morning labs. #Chronic pain #Ambulatory dysfunction -Continue oxycodone PRN, PDMP checked - Patient's chronic pain and ambulatory dysfunction stemming from a femur fracture. - X-ray of the right femur showed Stable ununited fracture at the distal femur. Follow-up as an outpatient. VTE Prophylaxis - Heparin 5000 units SQ q8h Disposition - admit to PCU Supervising Physician Co-Signing Physician Notes Attending attestation Pt seen and examined in concert with Dr. Grey. In agreement with the documented findings as noted in the resident documentation with any exceptions or additions as noted here. Some improvement in presenting shortness of breath since time of admission with ongoing diuresis reported. On examination, tracheostomy in place, S1/S2 nl RRR no MCG. decreased breath sounds bilateral bases. Abd nontender BS+ve Acute hypoxic respiratory failure w/ hypercapnea, s/p tracheostomy - O2 per protocol Acute on chronic HFpEF in the setting of multiple respiratory comorbidities - continue diuresis with fuorsemide IV and monitor I/O/wt. Difficult to ascertain dry weight. Follow up echocardiogram Chronic pain with ambulatory dysfunction in the setting of R femur fracture - XR shows unchanged, nonunited fracture Else see resident documentation as noted. Subjective Patient seen bedside this morning. States to be doing well at this time. At her baseline. Review of Systems Review of Systems: As per HPI Physical Exam Constitutional: WD/WN, vitals as above Respiratory: + labored breathing, + uses accessory mu scles and able to speak in complete sentences; no audible wheezes Auscultation: + diminished lung sounds (bibasal); no crackles and no wheezes Cardiovascular: Rate/Rhythm: regular rate and regular rhythm Heart Sounds: no murmur Extremities: normal capillary refill and + pedal edema (1+ b/l equal); no calf tenderness Gastrointestinal (Abdomen): Large abdominal pannus Skin: excoriation lu on arm and abdomen without surrounding cellulitic changes Neurologic: awake; not confused Psychiatric: A+Ox3, euthymic affect Results & Data Results & Data Vital Signs (Past 12 Hours) Vital Signs Temp Pulse Pulse Resp BP Pulse Ox Pulse Ox 03/08/25 02:44 36.8 C 71 21 112/65 92 03/07/25 23:48 85 26 H 95 03/07/25 22:39 84 03/07/25 22:33 03/07/25 22:15 83 18 126/80 95 03/07/25 22:02 98 03/07/25 20:30 77 22 126/59 L 94 03/07/25 19:47 76 03/07/25 19:30 75 18 143/81 H 95 O2 Del Method O2 Del Method O2 Flow Rate O2 Flow Rate FiO2 03/08/25 02:44 Trach Collar 5 03/07/25 23:48 Trach Collar 5 35 03/07/25 22:39 03/07/25 22:33 Trach Collar 5 03/07/25 22:15 Trach Collar 5 03/07/25 22:02 Trach Collar 9 03/07/25 20:30 Trach Collar 35 03/07/25 19:47 03/07/25 19:30 Room Air
[2025-03-08 06:57] LABS: Hematocrit (blood only) 40.2 % (37.0-47.0); Hemoglobin 11.4 g/dl (12.0-16.0); Mean Corpuscular Hemoglobin 26.5 pg (25.0-34.0); Mean Corpuscular Hgb Conc 28.4 g/dL (32.0-36.0); Mean Corpuscular Volume 93.5 fL (80.0-100.0); Mean Platelet Volume 9.6 fL (9.4-12.4); Platelet Count 260 K/uL (130-400); RDW Coefficient of Variation 17.1 % (11.5-14.5); RDW Standard Deviation 58.2 fL (36.4-46.3); White Blood Count 11.64 K/ul (4.8-10.8)
[2025-03-08 07:11] LABS: BUN Creatinine Ratio 24.8 (10-20); Calcium 8.8 mg/dl (8.6-10.3); Creatinine Clr Calc Pharmacy 51.4 ml/min
[2025-03-08] MEDS: TOPIRAMATE 100 MG TAB PO SCH (08:46)
[2025-03-08] MEDS: SPIRONOLACTONE 25 MG TAB PO SCH (08:47)
[2025-03-08] MEDS: SERTRALINE HCL 50 MG TABLET PO SCH (08:47)
[2025-03-08] MEDS: MAGNESIUM OXIDE 400 MG TAB PO SCH (08:47)
[2025-03-08] MEDS: buPROPion SR 100 MG TABCR PO SCH (08:47)
[2025-03-08] MEDS: ISOSORBIDE MONO EXTENDED REL 60 MG TABCR PO SCH (08:47)
[2025-03-08] MEDS: FOLIC ACID 1 MG TAB PO SCH (08:47)
[2025-03-08] MEDS: EMPAGLIFLOZIN 10 MG TAB PO SCH (08:47)
[2025-03-08] MEDS: ASPIRIN 81 MG ECTAB PO SCH (08:47)
[2025-03-08] MEDS: MULTIVITAMIN TAB PO SCH (08:47)
[2025-03-08] MEDS: FUROSEMIDE 40 MG/4 ML VIAL IV SCH (08:47)
--- NOTE | 2025-03-08 09:30 | XRay Report ---
XR femur RT 1V CLINICAL HISTORY: previous R femur fx, no surgery COMPARISON: 03/02/2023 FINDINGS: There is an old oblique ununited mildly comminuted mildly displaced fracture at the distal femoral metaphysis. Alignment is grossly stable. Evaluation of the proximal femur is limited by habit us and technical aspects. No new fracture or dislocation seen at the right femur. IMPRESSION: Stable ununited fracture at the distal femur. ACT 112: Negative or not required by law. Electronically signed by: Daryl Mccullough M.D. 03/08/2025 9:28 AM
[2025-03-08] MEDS ORDERED: INSULIN ASPART 100 UNITS/ML VIAL SC PRN (11:16)
[2025-03-08 13:09] LABS: Appearance Urine Clear (Clear); Bacteria Urine Automated 4+ (None Seen); Bilirubin Urine Negative (Negative); Blood Urine Trace (Negative); Color Urine Yellow; Epithelial Cell Urine Auto 0-2 /hpf (0-2); Glucose Urine UA 2+ (Negative); Ketones Urine Negative (Negative); Leukocyte Esterase Urine 2+ (Negative); Mucus Urine Present (None Prsent); Nitrite Urine Positive (Negative); Protein Urine Negative (Negative); RBC Urine Automated 0-2 /hpf (0-2); Specific Gravity Urine 1.017 (1.000-1.030); Urobilinogen Urine Negative (Negative); WBC Urine Automated 21-50 /hpf (0-5); pH Urine 5.5 (4.5-7.5)
--- NOTE | 2025-03-08 14:18 | Cardiology Consultation ---
Date of Consultation March 08, 2025 Assessment & Plan (1) Acute respiratory failure with hypoxia: (2) Acute on chronic heart failure with preserved ejection fraction: (3) Obesity hypoventilation syndrome: Plan Patient admitted with acute on chronic respiratory failure with worsening hypoxia, multifactorial secondary to obesity hypoventilatory syndrome/pickwickian and acute on chronic HFpEF. Chest xray with pulm edema. HS troponin only minimally elevated at 15, not indicative of ACS. EKG without acute ischemic changes. Continue IV lasix. Ordered 40 mg IV BID on admission and good urine outputs thus far. Monitor I+O's Daily weight with bed scale (non weight bearing) She is up approx 40 lbs since hospital discharge in Oct 2024. Echo was ordered by admitting team and will be reviewed when available. Continue all other outpatient meds including ASA, atorvastatin, isosorbide, metoprolol, spironolactone. There is some confusion about what diuretic patient is taking as an outpatient - torsemide 30 mg daily is listed in [facility] ([facility] chart); but she has fu rosemide AND torsemide listed in her OR chart. This will need to be clarified when she returns home. Case discussed with Dr. Marley I spent a total of 60 minutes on the date of service in preparation, delivery, and documentation of the care provided to this patient, excluding any time spent in the performance of separately billed services. Nataliya Kennedy PA-C Department of Cardiology, [facility] This chart was completed in part utilizing Speech Voice Recognition Software. Grammatical errors, random word insertions, pronoun errors, and incomplete sentences are an occasional consequence of this system due to software limitations, ambient noise, and hardware issues. Any formal questions or concerns about the content, text, or information contained within the body of this dictation should be directly addressed to the provider for clarification. Supervising Physician Co-Signing Physician Notes Attending attestation: Case reviewed with the advanced practitioner. I have personally performed a history and physical examination on the patient. I have reviewed the advanced practitioner's documentation on the date of service referenced in note, and I agree with, and take responsibility for the plan of care. I spent a total of 20 minutes coordinating, documenting, and providing care for this patient excluding time spent in the performance of separately billed services or time spent by another provider. Aman Marley, DO History of Present Illness Reason for Consultation: HFpEF; acute on chronic respiratory failure Requesting Physician: DG Hospitalist Attending Physician: Dr. Marley History of Present Illness Patient is a complicated 69 year old female who presented to [facility] with worsening SOB, hypoxia over the last few weeks. She is essentially bed bound, and only transfers from bed to chair to commode with assistance and lift. Upon arrival, patient found to be hypoxic, requiring higher supplemental O2 via trach collar. Chest xray with pulm vascular congestion. She does not weigh herself at home, but on admission she was 173 kg, compared to 156 kg on discharge. She was started on IV lasix on admission and paul catheter placed. Good diuresis thus far. Patient reports improvement in her SOB and respiratory status. Mild chest tightness reported but she feels this is related to her breathing fluid. No dizziness. Worsening LE edema. History includes: 1. Chronic HFpEF/right sided heart failure 2. Chronic respiratory failure with tracheostomy 3. Obesity hypoventilatory syndrome/Pickwickian 4. HTN 5. Dyslipidemia 6. Type II DM 7. CKD Allergies Allergy/AdvReac Type Severity Reaction Status Date / Time animal dander Allergy Intermediate Sneezing, Unverified 12/19/24 09:20 itchy watery eyes and Difficulty Breathing Penicillins Allergy Intermediate Hives Verified 12/19/24 09:20 tree and shrub pollen Allergy Intermediate Sneezing, Unverified 12/19/24 09:20 itchy watery eyes and Difficulty Breathing amitriptyline Allergy Unknown CAN'T Verified 12/19/24 09:20 REMEMBER doxycycline Allergy Unknown CAN'T Verified 12/19/24 09:20 REMEMBER guaifenesin Allergy Unknown CAN'T Verified 12/19/24 09:20 REMEMBER metformin Allergy Unknown CAN'T Verified 12/19/24 09:20 REMEMBER phenylephrine Allergy Unknown CAN'T Verified 12/19/24 09:20 REMEMBER pseudoephedrine Allergy Unknown CAN'T Verified 12/19/24 09:20 REMEMBER tetracycline Allergy Unknown CAN'T Verified 12/19/24 09:20 REMEMBER venlafaxine [From Effexor] Allergy Unknown CAN'T Verified 12/19/24 09:20 REMEMBER gabapentin AdvReac Intermediate BECOMES Verified 12/19/24 09:20 AGGRESSIVE Home Medications Medication Instructions Recorded Confirmed Type aspirin 81 mg tablet,delayed 81 mg PO QAM #30 tabs 04/06/23 12/19/24 Rx release (Robert Low Dose Aspirin) atorvastatin 40 mg tablet 40 mg PO QPM #30 tabs 04/06/23 12/19/24 Rx folic acid 1 mg tablet 1 mg PO QAM #30 tabs 04/06/23 12/19/24 Rx magnesium oxide 400 mg PO QAM #30 tabs 04/06/23 12/19/24 Rx multivitamin 1 tab PO QAM #30 tabs 04/06/23 12/19/24 Rx nitroglycerin 0.4 mg sublingual 0.4 mg sublingual DIRECTED PRN 04/06/23 12/19/24 Rx tablet Chest Pain #25 tabs pantoprazole 40 mg tablet,delayed 40 mg PO DAILYBB #30 tabs 04/06/23 12/19/24 Rx release sertraline 50 mg tablet 50 mg PO QAM #30 tabs 04/06/23 12/19/24 Rx spironolactone 25 mg tablet 25 mg PO QAM #30 tabs 04/06/23 12/19/24 Rx blood-glucose meter (OneTouch #1 ea 07/21/23 12/19/24 Rx Ultra2 Meter) pen needle, diabetic 32 gauge x #150 ea 08/26/23 12/19/24 Rx 5/32" (BD Kaitlin 2nd Gen Pen Needle) pen needle, diabetic 32 gauge x #50 ea 08/26/23 12/19/24 Rx 5/32" (BD Kaitlin 2nd Gen Pen Needle) ipratropium 0.5 mg-albuterol 3 mg 3 ml inhalation Q4H PRN COUGHING, 11/25/23 12/19/24 Rx (2.5 mg base)/3 mL nebulization WHEEZING, SHORTNESS OF BREATH #180 soln mL diclofenac sodium 1 % topical gel 4 g EXT QID PRN Pain 01/15/24 12/19/24 History (Voltaren Arthritis Pain) naloxone 4 mg/actuation nasal 4 mg intranasal DIRECTED PRN 01/15/24 12/19/24 History spray (Narcan) OVERDOSE bupropion HCl 100 mg tablet,12 hr 100 mg PO UD 02/03/24 12/19/24 History sustained-release potassium chloride 20 mEq 20 meq PO BID 02/03/24 12/19/24 History tablet,extended release budesonide 0.5 mg/2 mL suspension 0.5 mg (2 mL) NEB BIDR #120 mL 03/02/24 12/19/24 Rx for nebulization diclofenac sodium 75 mg 75 mg PO BID #60 tabs 03/02/24 12/19/24 Rx tablet,delayed release famotidine 20 mg tablet 20 mg PO DAILY PRN heartburn #30 03/02/24 12/19/24 Rx tabs ipratropium 20 mcg-albuterol 100 1 puff inhalation QID PRN 03/02/24 12/19/24 Rx mcg/actuation mist for inhalation shortness of breath #4 grams (Combivent Respimat) furosemide 80 mg tablet 80 mg PO QAM 06/13/24 12/19/24 History isosorbide mononitrate 60 mg 60 mg PO QAM 06/13/24 12/19/24 History tablet,extended release 24 hr levothyroxine 200 mcg tablet 200 mcg PO UD 06/13/24 12/19/24 History levothyroxine 25 mcg tablet 25 mcg PO UD 06/13/24 12/19/24 History metoprolol tartrate 25 mg tablet 25 mg PO BID 06/13/24 12/19/24 History topiramate 100 mg tablet 100 mg PO UD 06/13/24 12/19/24 History insulin aspart U-100 100 unit/mL See Rx Instructions subcut DAILY 08/21/24 12/19/24 Rx subcutaneous solution (Novolog #100 mL U-100 Insulin aspart) blood sugar diagnostic (OneTouch #400 ea 08/27/24 12/19/24 Rx Ultra Test strips) empagliflozin 10 mg tablet 10 mg PO UD 09/14/24 12/19/24 History (Jardiance) oxycodone 10 mg tablet 10 mg PO DIRECTED PRN Pain 09/14/24 12/19/24 History torsemide 20 mg tablet 40 mg PO QAM 12/19/24 12/19/24 History nebulizers #1 ea 01/17/25 Rx Patient History Medical History (Updated 03/08/25 @ 08:06 by Rahul Bradford MD) New onset atrial flutter Parainfluenza infection Common migraine without aura Congestive heart failure Diabetic retinopathy associated with type 2 diabetes mellitus Hypoglycemia Chronic kidney disease, stage 3b C. difficile diarrhea Acute gout Wound, breast Type 2 diabetes mellitus Right bundle branch block Presence of tracheostomy Morbid obesity Weakness Cor pulmonale CHF (congestive heart failure) Chronic diastolic heart failure cor pulmonale Chronic obstructive pulmonary disease Generalized weakness Fracture of distal end of right femur Hypothyroidism (acquired) Ureterolithiasis Vitamin D deficiency Adjustment disorder with depressed mood Tinea unguium GERD (gastroesophageal reflux disease) Anxiety Coronary artery disease RASHAAD (obstructive sleep apnea) Sepsis Surgical History History of tonsillectomy and adenoidectomy History of cholecystectomy History of appendectomy Family History Mother Coronary heart disease COPD (chronic obstructive pulmonary disease) Father Suicide Hung himself. Pt found him. Unknown Lung cancer Social History Smoking Status: Never smoker Tobacco Type: Cigarettes Second Hand Exposure: No; Do You Dip or Chew Tobacco: No; Hx Alcohol Use: No Hx Substance Use: No Preferred Language: Moldovan Communication Ability: Effective Visual Impairment: Limited Hearing Ability: Normal Etl Developer Required: No Beliefs That Will Affect Care: None marital status: Current Living Situation: Parent Current Living Situation Comment: lives at home with daughter current occupational status: disabled How many Children do You have: 1 Other Information That Helps Us Care for You: No Feels Safe at Home: Yes Safety Concerns: Feels Safe At This Time Diet: regular Diet Comment: Drinks 1 Boost drink supplement in the morning caffeine: Yes (1 coffee daily) Physical Activity Frequency: Does not Exercise Seatbelt Use: always Do you think of yourself as: straight/heterosexual Gender Identity: Female Assistive Devices: CPAP, Lift Chair, Mechanical Lift, Oxygen - Continuous, Scooter/Electric Scooter and Other Review of Systems Review of Systems: All systems reviewed & are unremarkable except as noted in HPI & below Physical Exam Constitutional: + morbidly obese; no acute distress Neck: + thick neck (tracheostomy in place) Respiratory: + cough and + tachypneic Auscultation : + crackles and + rhonchi Cardiovascular: Rate/Rhythm: regular rate and regular rhythm Heart Sounds: no murmur (distant heart sounds) Vessels: + JVD Extremities: + edema (2+ LE edema to thighs) Gastrointestinal (Abdomen): normal bowel sounds, soft, nontender, no hepatosp lenomegaly Neurologic: PERRL, EOMI, accommodation nl, no face palsy, no dysarthria Results & Data Vital Signs (Past 12 Hours) Vital Signs Temp Pulse Resp BP Pulse Ox O2 Del Method O2 Flow Rate 03/08/25 14:01 75 20 92 Trach Collar 03/08/25 11:07 36.9 C 76 17 114/71 95 Trach Collar 03/08/25 08:55 Trach Collar 03/08/25 08:25 36.8 C 72 19 132/73 92 Trach Collar 03/08/25 07:33 75 18 96 Trach Collar 10 03/08/25 02:44 36.8 C 71 21 112/65 92 Trach Collar 5 FiO2 03/08/25 14:01 30 03/08/25 11:07 03/08/25 08:55 03/08/25 08:25 03/08/25 07:33 35 03/08/25 02:44 Laboratory Results Cardiac Enzymes 03/07/25 Range/Units 15:35 AST 33 (13-39) U/L Troponin I High Sens 15.6 H (0-14) pg/ml B-Natriuretic Peptide 146 H (0-100) pg/ml Coagulation 03/07/25 Range/Units 15:35 B-Natriuretic Peptide 146 H (0-100) pg/ml CBC 03/07/25 03/08/25 Range/Units 15:35 06:35 WBC 11.62 H 11.64 H (4.8-10.8) K/ul RBC 4.60 4.30 (4.20-5.40) M/uL Hgb 12.2 11.4 L (12.0-16.0) g/dl Hct 43.9 40.2 (37.0-47.0) % Plt Count 257 260 (130-400) K/uL Neut # (Auto) 8.40 H (1.40-6.50) K/uL Lymph # (Auto) 1.83 (1.20-3.40) K/uL Angelina # (Auto) 0.80 H (0.11-0.59) K/uL Eos # (Auto) 0.28 (0.00-0.50) K/uL Baso # (Auto) 0.07 (0.00-0.20) K/uL Comprehensive Metabolic Panel 03/07/25 03/08/25 Range/Units 15:35 06:35 Sodium 141 140 (136-145) mmol/L Potassium 5.0 5.0 (3.5-5.1) mmol/L Chloride 108 H 105 (98-107) mmol/L Carbon Dioxide 27 32 (21-32) mmol/L BUN 42 H 41 H (6-23) mg/dl Creatinine 1.85 H 1.65 H (0.6-1.2) mg/dl Glucose 154 H 139 H (70-99(Fasting)) mg/dl Calcium 8.9 8.8 (8.6-10.3) mg/dl AST 33 (13-39) U/L ALT 26 (7-52) U/L Alkaline Phosphatase 97 (34-104) U/L Total Protein 7.8 (6.0-8.3) gm/dl Albumin 3.5 (3.4-5.0) gm/dl Intake and Output 03/07/25 03/08/25 03/08/25 22:59 06:59 14:59 Output Total 1300 / 2400 1100 / 2400 1000 / 1000 Balance -1300 / -2400 -1100 / -2400 -1000 / -1000 Output: Urine Amount (Catheter) 1300 / 2400 1100 / 2400 1000 / 1000 Paul/Indwelling 1300 / 2400 1100 / 2400 1000 / 1000 Other: Weight 171.6 kg 171 kg Weight Measurement Method Built in [facility] Built in [facility] Diagnostic Findings Telemetry reviewed: NSR with PVC's EKG: NSR with 1st degree AV block RBBB LAFB Bifascicular block Echo pending Chest X-Ray 03/07/25 15:53 INDICATION: Chest pain. TECHNIQUE: Frontal radiograph of the chest. COMPARISON: Radiograph 11/02/2024. FINDINGS: Moderate cardiomegaly. Mild pulmonary vascular congestion. No infiltrate, pleural effusion or pneumothorax. No acute osseous abnormality evident. IMPRESSION: Mild pulmonary vascular congestion. Electronically signed by Denis Rosales 03-07-2025 5:00 PM Medications Administered Current Inpatient Medications Acetaminophen (Acetaminophen 325 Mg Tab) 650 mg PO Q4H PRN PRN Reason: Pain or Fever Stop: 04/06/25 22:01 Albuterol (Albut/Ipratrop 3mg/0.5mg Neb 3 Ml Vial) 3 ml NEB Q6R [facility]; Protocol Stop: 04/07/25 00:59 Last Admin: 03/08/25 13:49 Dose: 3 ml Aspirin (Aspirin 81 Mg Ectab) 81 mg PO QAM [facility] Stop: 04/07/25 08:59 Last Admin: 03/08/25 08:47 Dose: 81 mg Atorvastatin Calcium (Atorvastatin 40 Mg Tab) 40 mg PO QPM [facility] Stop: 04/06/25 22:01 Last Admin: 03/07/25 23:02 Dose: 40 mg Budesonide (Budesonide 0.5 Mg/2 Ml Vial (Pulmicort)) 0.5 mg NEB BIDR [facility] Stop: 04/06/25 22:01 Last Admin: 03/08/25 07:33 Dose: 0.5 mg Bupropion HCl (Bupropion Sr 100 Mg Tabcr) 100 mg PO QAM [facility] Stop: 04/07/25 08:59 Last Admin: 03/08/25 08:47 Dose: 100 mg Bupropion HCl (Bupropion Sr 100 Mg Tabcr) 200 mg PO HS [facility] Stop: 04/06/25 22:29 Last Admin: 03/07/25 23:03 Dose: 200 mg Dextrose (Dextrose 50% 50 Ml Syringe) 25 - 50 ml IV UD PRN; Protocol PRN Reason: Hypoglycemia Protocol Stop: 04/06/25 22:01 Diclofenac Sodium (Diclofenac Sod 1% Gel 100 Gm Tube) 4 gm EXT QID PRN; Protocol PRN Reason: Pain Stop: 04/06/25 22:01 Diclofenac Sodium (Diclofenac Sodium 75 Mg Tabcr) 75 mg PO BID [facility] Stop: 04/06/25 22:01 Last Admin: 03/08/25 08:46 Dose: 75 mg Empagliflozin (Empagliflozin 10 Mg Tab) [facility] [place] Stop: 04/07/25 08:59 Last Admin: 03/08/25 08:47 Dose: 10 mg Famotidine (Famotidine 20 Mg Tab) 20 mg PO DAILY PRN PRN Reason: heartburn Stop: 04/06/25 22:01 Folic Acid (Folic Acid 1 Mg Tab) [facility] [place] Stop: 04/07/25 08:59 Last Admin: 03/08/25 08:47 Dose: 1 mg Furosemide (Furosemide 40 Mg/4 Ml Vial) 40 mg IV BID [facility] Stop: 04/07/25 08:59 Last Admin: 03/08/25 08:47 Dose: 40 mg Glucagon (Glucagon For Inj 1 Mg Vial) 1 mg SQ UD PRN; Protocol PRN Reason: Hypoglycemia Protocol Stop: 04/06/25 22:01 Glucose (Glucose 40% Gel 15 Gm Tube) 15 - 30 gm PO UD PRN; Protocol PRN Reason: Hypoglycemia Protocol Stop: 04/06/25 22:01 Glucose (Glucose 10 Tab/Tube) 4 - 8 tab PO UD PRN; Protocol PRN Reason: Hypoglycemia Protocol Stop: 04/06/25 22:01 Heparin Sodium (Porcine) (Heparin Sod 5,000 Unit/0.5 Ml Vial) 5,000 units SQ Q8 H ASIYA Stop: 04/07/25 05:59 Last Admin: 03/08/25 06:27 Dose: 5,000 units Insulin Aspart (Insulin, Rapid-Acting Pump) 0 each SC [facility]; Protocol Stop: 04/07/25 11:29 Insulin Aspart (Insulin Aspart 100 Units/Ml Vial) 0 units SC PRN PRN PRN Reason: Insulin (Rapid-Acting) Pump Refill Stop: 04/07/25 11:15 Insulin Aspart (Insulin Aspart Per Unit Charge) 0 units SC [facility] Stop: 04/07/25 16:29 Insulin Glargine (Lantus Per Unit Charge) 15 units SQ BID [facility] Stop: 04/07/25 20:59 Isosorbide Mononitrate (Isosorbide Angelina Extended Rel 60 Mg Tabcr) 60 [facility] [place] [facility] Stop: 04/07/25 08:59 Last Admin: 03/08/25 08:47 Dose: 60 mg Levothyroxine Sodium (Levothyroxine Sodium 25 Mcg Tablet) 25 mcg PO DAILYBB [facility] Stop: 04/07/25 06:29 Last Admin: 03/08/25 05:51 Dose: 25 mcg Levothyroxine Sodium (Levothyroxine Sodium 200 Mcg Tablet) 200 mcg PO DAILYBB [facility] Stop: 04/07/25 06:29 Last Admin: 03/08/25 05:51 Dose: 200 mcg Magnesium Oxide (Magnesium Oxide 400 Mg Tab) 400 mg PO QAM [facility] Stop: 04/07/25 08:59 Last Admin: 03/08/25 08:47 Dose: 400 mg Metoprolol Tartrate (Metoprolol Tartrate 25 Mg Tab) 25 mg PO BID ASIYA Stop: 04/06/25 22:01 Last Admin: 03/08/25 08:46 Dose: 25 mg Miscellaneous (Carbohydrates For Hypoglycemia ) 15 - 30 gm PO UD PRN PRN Reason: Hypoglycemia Protocol Stop: 04/06/25 22:01 Miscellaneous Information (Pharmacy Glycemic Mgmt Consult) 1 each N/A UD PRN; Protocol PRN Reason: Consult Stop: 04/07/25 14:31 Multivitamins (Multivitamin Tab) 1 tab PO QAM ASIYA Stop: 04/07/25 08:59 Last Admin: 03/08/25 08:47 Dose: 1 tab Oxycodone HCl (Oxycodone Hcl Ir 5 Mg Tab (Immediate Release)) 10 mg PO Q6H PRN PRN Reason: Pain Stop: 03/21/25 22:01 Last Admin: 03/07/25 23:13 Dose: 10 mg Pantoprazole Sodium (Pantoprazole 40 Mg Tab) 40 mg PO DAILYBB ASIYA Stop: 04/07/25 06:29 Last Admin: 03/08/25 06:27 Dose: 40 mg Potassium Chloride (Potassium Chloride Crtab 20 Meq Tabcr) 20 meq PO BID ASIYA Stop: 04/06/25 22:01 Last Admin: 03/08/25 08:51 Dose: 20 meq Sertraline HCl (Sertraline Hcl 50 Mg Tablet) 50 mg PO QAM ASIYA Stop: 04/07/25 08:59 Last Admin: 03/08/25 08:47 Dose: 50 mg Spironolactone (Spironolactone 25 Mg Tab) 25 mg PO QAM ASIYA Stop: 04/07/25 08:59 Last Admin: 03/08/25 08:47 Dose: 25 mg Topiramate (Topiramate 100 Mg Tab) 100 mg PO QAM ASIYA Stop: 04/07/25 08:59 Last Admin: 03/08/25 08:46 Dose: 100 mg Topiramate (Topiramate 100 Mg Tab) 200 mg PO HS ASIYA Stop: 04/06/25 22:29 Last Admin: 03/07/25 23:04 Dose: 200 mg
[2025-03-08] MEDS ORDERED: PHARMACY GLYCEMIC MGMT CONSULT PRN (14:32)
[2025-03-08] MEDS: INSULIN, Rapid-Acting PUMP SC SCH (14:53)
[2025-03-08] MEDS: LANTUS PER UNIT CHARGE SQ STA (16:44)
[2025-03-08] MEDS: INSULIN ASPART PER UNIT CHARGE SC SCH (16:44)
[2025-03-08] MEDS ORDERED: LANTUS PER UNIT CHARGE SQ SCH (21:00)
--- NOTE | 2025-03-09 05:56 | Electrocardiogram Report ---
Test Reason : Blood Pressure : */* mmHG Vent. Rate : 80 BPM Atrial Rate : 80 BPM P-R Int : 268 ms QRS Dur : 138 ms QT Int : 412 ms P-R-T Axes : 40 -48 4 degrees QTcB Int : 475 ms Sinus rhythm with 1st degree A-V block with occasional Premature ventricular complexes Right bundle branch block Left anterior fascicular block Bifascicular block Possible Lateral infarct (cited on or before 04-Feb-2024) Abnormal ECG When compared with ECG of 03-Nov-2024 06:01, Nonspecific T wave abnormality now evident in Lateral leads Confirmed by Rahul Quiroz ([id number]) on 03/09/2025 5:55:34 AM Referred By: REFERRED SELF Confirmed By: Rahul Quiroz
[2025-03-09 06:42] LABS: Hematocrit (blood only) 39.3 % (37.0-47.0); Hemoglobin 11.2 g/dl (12.0-16.0); Mean Corpuscular Hemoglobin 26.6 pg (25.0-34.0); Mean Corpuscular Hgb Conc 28.5 g/dL (32.0-36.0); Mean Corpuscular Volume 93.3 fL (80.0-100.0); Mean Platelet Volume 9.5 fL (9.4-12.4); Platelet Count 233 K/uL (130-400); RDW Coefficient of Variation 17.2 % (11.5-14.5); RDW Standard Deviation 59.5 fL (36.4-46.3); Red Blood Count 4.21 M/uL (4.20-5.40); White Blood Count 9.75 K/ul (4.8-10.8)
[2025-03-09 07:07] LABS: BUN Creatinine Ratio 25.1 (10-20); Calcium 8.6 mg/dl (8.6-10.3); Creatinine Clr Calc Pharmacy 42.5 ml/min; Magnesium 2.2 mg/dl (1.7-2.4); Potassium 4.4 mmol/L (3.5-5.1)
--- NOTE | 2025-03-09 07:16 | Hospitalist Progress Note ---
Date of Service March 09, 2025 Assessment & Plan (1) Obesity hypoventilation syndrome: (2) Acute respiratory acidosis: (3) Acute on chronic heart failure with preserved ejection fraction: (4) Tracheostomy in place: (5) Chronic kidney disease, stage 3: Plan 69-year-old female with significant past medical history of obstructive sleep apnea, obesity hypoventilation syndrome, cor pulmonale, COPD, insulin-dependent diabetes mellitus, chronic nonweightbearing of her right lower extremity due to nonhealing fracture who presents to the emergency room due to shortness of breath. #Acute on chronic heart failure with preserved ejection fraction / RASHAAD / obesity hypoventilation / Acute respiratory failure with acidosis and hypercapnia / tracheostomy in place -Lasix 40mg IV BID, paul catheter inserted in the ER -Continue metoprolol and Jardiance -Similar respiratory acidosis prior admission which improved with diuresis, will repeat VBG in AM, aim O2 around 88-92% - Echo showed a EF of 60-65 with grade 2 diastolic dysfunction. - Cardiology consulted and recommends to continue on 40 mg Lasix IV twice daily. Should be on torsemide 30 mg daily per [facility] chart. Slight elevation in creatinine from baseline on 03/09. # CKD - Has a history of CKD with a baseline creatinine of 1.41.8. Slight elevation in creatinine at 1.9 on 03/09. - Most likely secondary to her Lasix will refer to cardiology #COPD -No wheezing on exam to suggest exacerbation but improvement with duoneb in the ER therefore will continue this along with her usual COPD maintenance therapy #T2DM -Continue insulin pump with BSG ACHS. Unfortunately out of supplies at this time. Will change to sliding scale insulin with glucose checks at meals. -Continue Jardiane - wellness educator consulted. Pharmacology glycemic consult. - Hemoglobin A1c on 03/09 was 7.1. Follow-up as outpatient. #Chronic pain #Ambulatory dysfunction -Continue oxycodone PRN, PDMP checked - Patient's chronic pain and ambulatory dysfunction stemming from a femur fracture. - X-ray of the right femur showed Stable ununited fracture at the distal femur. Follow-up as an outpatient. VTE Prophylaxis - Heparin 5000 units SQ q8h Disposition - admit to PCU Admission and Anticipated Discharge Date Admission Date: March 07, 2025 Supervising Physician Co-Signing Physician Notes Attending attestation Pt seen and examined in concert with Dr. Grey. In agreement with the documented findings as noted in the resident documentation with any exceptions or additions as noted here. No acute complaint at time of examination, tolerating diuresis with improvement in respiratory sx. On examination, tracheostomy in place, S1/S2 nl RRR no MCG. decreased breath sounds bilateral bases. Abd nontender BS+ve Acute hypoxic respiratory failure w/ hypercapnea, s/p tracheostomy - O2 per protocol Acute on chronic HFpEF in the setting of multiple respiratory comorbidities - continue diuresis with fuorsemide IV and monitor I/O/wt. Difficult to ascertain dry weight. Chronic pain with ambulatory dysfunction in the setting of R femur fracture - XR shows unchanged, nonunited fracture Else see resident documentation as noted. Subjective Patient seen bedside this morning. No acute issues or concerns at this time. Review of Systems Review of Systems: All systems reviewed & are unremarkable except as noted in Subjective Physical Exam Constitutional: WD/WN, vitals as above Respiratory: + labored breathing, + uses accessory mu scles and able to speak in complete sentences; no audible wheezes Auscultation: + diminished lung sounds (bibasal); no crackles and no wheezes Cardiovascular: Rate/Rhythm: regular rate and regular rhythm Heart Sounds: no murmur Extremities: normal capillary refill and + pedal edema (1+ b/l equal); no calf tenderness Neurologic: awake; not confused Psychiatric: A+Ox3, euthymic affect Results & Data Results & Data Vital Signs (Past 12 Hours) Vital Signs Temp Pulse Pulse Resp BP BP Pulse Ox 03/09/25 04:00 36.6 C 65 22 119/68 96 03/09/25 00:48 80 03/09/25 00:30 75 15 93 03/09/25 00:04 75 22 115/66 93 03/08/25 22:37 03/08/25 22:02 03/08/25 20:40 84 125/74 03/08/25 19:30 36.8 C 80 17 144/73 H 96 Pulse Ox O2 Del Method O2 Del Method O2 Flow Rate O2 Flow Rate FiO2 03/09/25 04:00 Trach Collar 9 03/09/25 00:48 03/09/25 00:30 Trach Collar 30 03/09/25 00:04 Trach Collar 9 03/08/25 22:37 Trach Collar 03/08/25 22:02 93 Trach Collar 9 03/08/25 20:40 03/08/25 19:30 Trach Collar
[2025-03-09 07:42] LABS: Estimated Average Glucose 157 mg/dl; Hemoglobin A1C 7.1 % (4.5-5.6)
[2025-03-09] MEDS: LANTUS PER UNIT CHARGE SQ SCH (08:21)
[2025-03-09] MEDS: DICLOFENAC SOD 1% GEL 100 GM TUBE EXT PRN (08:29)
[2025-03-09] MEDS: PNEUMOCOCCAL VACCINE (PCV20) 20-VAL CONJ-DIP CRM/PF 0.5 ML SYR IM ONE (08:42)
--- NOTE | 2025-03-09 12:18 | Cardiology Progress Note ---
<Statement entered by Halima Frias, - 03/09/25 21:54> I have reviewed the advanced practitioner's documentation and agree with the plan of care. I accept the responsibility for the associated risk. pt seen in cardiology f/u due to Acute respiratory failure with hypoxia secondary to Acute on chronic heart failure with preserved ejection fraction- NYHA class III and Obesity hypoventilation syndrome continue IV lasix; once euvolmic transition to torsemide 30mg daily; i think this will hopefully be in next 24-48 hours continue other home cardiac medications CHF f/u upon discharge please re-consult as necessary Date of Service March 09, 2025 Assessment & Plan (1) Acute respiratory failure with hypoxia: (2) Acute on chronic heart failure with preserved ejection fraction: (3) Obesity hypoventilation syndrome: Plan Patient admitted with acute on chronic respiratory failure with worsening hypoxia, multifactorial secondary to obesity hypoventilatory syndrome/pickwickian and acute on chronic HFpEF. Continue IV lasix. She is down 3.5 L and weight has trended down 5 kg overnight Continue IV furosemide 40 mg twice daily Monitor I+O's Daily weight with bed scale (non weight bearing) Patient reported her home dose of medication was torsemide 20 mg daily is what she has been taking (appears that on her most recent visit outpatient at [facility] she was to be taking torsemide 30 mg daily per notes 07/2024) Recommend transitioning back to oral diuretic therapy once she is euvolemic or closer to her dry weight, but would likely benefit from increase in outpatient loop diuretic recommend torsemide 30 mg daily 2 L fluid restriction Echo indicated normal ejection fraction with no significant valvular disease, she does have RV dilation/moderately due systolic function which is chronic (unchanged from echo 1 year ago completed at [facility] also) Continue all other outpatient meds including ASA, atorvastatin, isosorbide, metoprolol, spironolactone. Case discussed with LEDA Golden Department of Cardiology, [facility] This chart was completed in part utilizing Speech Voice Recognition Software. Grammatical errors, random word insertions, pronoun errors, and incomplete sentences are an occasional consequence of this system due to software limitations, ambient noise, and hardware issues. Any formal questions or concerns about the content, text, or information contained within the body of this dictation should be directly addressed to the provider for clarification. Admission and Anticipated Discharge Date Admission Date: March 07, 2025 Subjective 69-year-old female seen in cardiology follow-up today in regard to acute on chronic CHF exacerbation. Reports she has had significant output with IV diuresis but still feels volume overloaded. Reports compliance with home medication therapy taking Demadex 20 mg daily. Denies any increased sodium inta ke or dietary indiscretions. Reportedly is drinking 1.5 L fluid daily. Review of Systems Constitutional: + weight gain; no fever and no chills Respiratory: + cough and + dyspnea Cardiovascular: + edema; no chest pain, no palpitations and no syncope Physical Exam Constitutional: WD/WN, vitals as above well developed, comfortable and + overweight; no acute distress Eyes: PERRL, conjunctivae normal, anicteric sclerae Respiratory: normal respiratory effort, lungs clear to auscultation +tracheostomy Cardiovascular: RRR, no murmur, no edema Vessels: no JVD Extremities: + edema Musculoskeletal: no cyanosis or clubbing, extremities motor strength 5/5 Skin: no rashes, warm and dry Psychiatric: A+Ox3, euthymic affect Results & Data Vital Signs (Past 12 Hours) Vital Signs Temp Pulse Pulse Resp BP BP Pulse Ox 03/09/25 11:39 36.8 C 72 18 100/66 93 03/09/25 07:39 97 H 18 92 03/09/25 07:25 36.7 C 65 18 109/70 96 03/09/25 04:00 36.6 C 65 22 119/68 96 03/09/25 00:48 80 03/09/25 00:30 75 15 93 03/09/25 00:04 75 22 115/66 93 O2 Del Method O2 Flow Rate FiO2 03/09/25 11:39 Trach Collar 9 03/09/25 07:39 Trach Collar 30 03/09/25 07:25 Trach Collar 03/09/25 04:00 Trach Collar 9 03/09/25 00:48 03/09/25 00:30 Trach Collar 30 03/09/25 00:04 Trach Collar 9 Laboratory Results CBC 03/09/25 Range/Units 06:09 WBC 9.75 (4.8-10.8) K/ul RBC 4.21 (4.20-5.40) M/uL Hgb 11.2 L (12.0-16.0) g/dl Hct 39.3 (37.0-47.0) % Plt Count 233 (130-400) K/uL Comprehensive Metabolic Panel 03/09/25 Range/Units 06:09 Sodium 140 (136-145) mmol/L Potassium 4.4 (3.5-5.1) mmol/L Chloride 105 (98-107) mmol/L Carbon Dioxide 32 (21-32) mmol/L BUN 49 H (6-23) mg/dl Creatinine 1.95 H D (0.6-1.2) mg/dl Glucose 147 H (70-99(Fasting)) mg/dl Calcium 8.6 (8.6-10.3) mg/dl Intake and Output 03/08/25 03/09/25 03/09/25 22:59 06:59 14:59 Intake Total 600 / 600 Output Total 725 / 3500 1775 / 3500 Balance -725 / -3500 -1775 / -3500 599 / 599 Intake: Oral 600 / 600 Output: Urine 1775 / 1775 Urine Amount (Catheter) 725 / 1725 Payne/Indwelling 725 / 1725 # Bowel Movements Other: Weight 165.2 kg Weight Measurement Method Built in [facility] Diagnostic Findings Laboratory Results WBC 9.75 K/ul (4.8-10.8) 03/09/25 06:09 RBC 4.21 M/uL (4.20-5.40) 03/09/25 06:09 Hgb 11.2 g/dl (12.0-16.0) L 03/09/25 06:09 Hct 39.3 % (37.0-47.0) 03/09/25 06:09 MCV 93.3 fL (80.0-100.0) 03/09/25 06:09 MCH 26.6 pg (25.0-34.0) 03/09/25 06:09 MCHC 28.5 g/dL (32.0-36.0) L 03/09/25 06:09 RDW Std Deviation 59.5 fL (36.4-46.3) H 03/09/25 06:09 RDW Coeff of Amee 17.2 % (11.5-14.5) H 03/09/25 06:09 Plt Count 233 K/uL (130-400) 03/09/25 06:09 MPV 9.5 fL (9.4-12.4) 03/09/25 06:09 Immature Gran % (Auto) 2.1 % 03/07/25 15:35 Neut % (Auto) 72.3 % 03/07/25 15:35 Lymph % (Auto) 15.7 % 03/07/25 15:35 [place] % (Auto) 6.9 % 03/07/25 15:35 Eos % (Auto) 2.4 % 03/07/25 15:35 Baso % (Auto) 0.6 % 03/07/25 15:35 Neut # (Auto) 8.40 K/uL (1.40-6.50) H 03/07/25 15:35 Lymph # (Auto) 1.83 K/uL (1.20-3.40) 03/07/25 15:35 [place] # (Auto) 0.80 K/uL (0.11-0.59) H 03/07/25 15:35 Eos # (Auto) 0.28 K/uL (0.00-0.50) 03/07/25 15:35 Baso # (Auto) 0.07 K/uL (0.00-0.20) 03/07/25 15:35 Immature Gran # (Auto) 0.24 K/uL (0.01-0.20) H 03/07/25 15:35 Absolute Nucleated RBC 0.03 K/uL (0.00-0.12) 03/07/25 15:35 Nucleated RBC % (auto) 0.3 % 03/07/25 15:35 VBG pH 7.27 (7.36-7.41) L 03/08/25 06:35 VBG pCO2 63 mmHg (38-50) H 03/08/25 06:35 VBG pO2 41 mmHg 03/08/25 06:35 VBG HCO3 29 mmol/L 03/08/25 06:35 VBG O2 Saturation 72.0 % 03/08/25 06:35 VBG Base Excess 0.5 mEq/L 03/08/25 06:35 Sodium 140 mmol/L (136-145) 03/09/25 06:09 Potassium 4.4 mmol/L (3.5-5.1) 03/09/25 06:09 Chloride 105 mmol/L (98-107) 03/09/25 06:09 Carbon Dioxide 32 mmol/L (21-32) 03/09/25 06:09 Anion Gap 3 (3-11) 03/09/25 06:09 BUN 49 mg/dl (6-23) H 03/09/25 06:09 Creatinine 1.95 mg/dl (0.6-1.2) H D 03/09/25 06:09 Est Cr Clr Drug Dosing 42.5 ml/min 03/09/25 06:09 eGFR 27.53 03/09/25 06:09 BUN/Creatinine Ratio 25.1 (10-20) H 03/09/25 06:09 Glucose 147 mg/dl (70-99(Fasting)) H 03/09/25 06:09 POC Glucose 177 mg/dl (70-99) H 03/09/25 11:36 Estimat Average Glucose 157 mg/dl 03/09/25 06:09 Hemoglobin A1c 7.1 % (4.5-5.6) H 03/09/25 06:09 Calcium 8.6 mg/dl (8.6-10.3) 03/09/25 06:09 Magnesium 2.2 mg/dl (1.7-2.4) 03/09/25 06:09 Total Bilirubin 0.4 mg/dl (0.2-1.0) 03/07/25 15:35 AST 33 U/L (13-39) 03/07/25 15:35 ALT 26 U/L (7-52) 03/07/25 15:35 Alkaline Phosphatase 97 U/L (34-104) 03/07/25 15:35 Troponin I High Sens 15.6 pg/ml (0-14) H 03/07/25 15:35 B-Natriuretic Peptide 146 pg/ml (0-100) H 03/07/25 15:35 Total Protein 7.8 gm/dl (6.0-8.3) 03/07/25 15:35 Albumin 3.5 gm/dl (3.4-5.0) 03/07/25 15:35 Globulin 4.3 gm/dl (2.5-4.0) H 03/07/25 15:35 Albumin/Globulin Ratio 0.8 (0.9-2) L 03/07/25 15:35 TSH 11.167 uIu/ml (0.300-4.500) H 03/07/25 15:35 Free T4 0.73 ng/dl (0.61-1.60) 03/07/25 15:35 Urine Color Yellow 03/08/25 Unknown Urine Appearance Clear (Clear) 03/08/25 Unknown Urine pH 5.5 (4.5-7.5) 03/08/25 Unknown Ur Specific [place] 1.017 (1.000-1.030) 03/08/25 Unknown Urine Protein Negative (Negative) 03/08/25 Unknown Urine Glucose (UA) 2+ (Negative) H 03/08/25 Unknown Urine Ketones Negative (Negative) 03/08/25 Unknown Urine Blood Trace (Negative) H 03/08/25 Unknown Urine Nitrite Positive (Negative) A 03/08/25 Unknown Urine Bilirubin Negative (Negative) 03/08/25 Unknown Urine Urobilinogen Negative (Negative) 03/08/25 Unknown Ur Leukocyte Esterase 2+ (Negative) H 03/08/25 Unknown Urine WBC (Auto) 21-50 /hpf (0-5) H 03/08/25 Unknown Urine RBC (Auto) 0-2 /hpf (0-2) 03/08/25 Unknown U Hyaline Cast (Auto) 6-10 /lpf (0-2) H 03/08/25 Unknown U Epithel Cells (Auto) 0-2 /hpf (0-2) 03/08/25 Unknown Urine Bacteria (Auto) 4+ (None Seen) H 03/08/25 Unknown Urine Mucus Present (None Prsent) A 03/08/25 Unknown SARS-CoV-2 (PCR) NEGATIVE (Negative) 03/07/25 15:35 SARS-CoV-2 (PCR) NEGATIVE (Negative) 03/07/25 15:35 Influenza Type A (PCR) Negative (Neg) 03/07/25 15:35 Influenza Type B (PCR) Negative (Neg) 03/07/25 15:35 RSV (RT-PCR) Negative (Neg) 03/07/25 15:35 Impressions Chest X-Ray 03/07/25 15:53 INDICATION: Chest pain. TECHNIQUE: Frontal radiograph of the chest. COMPARISON: Radiograph 11/02/2024. FINDINGS: Moderate cardiomegaly. Mild pulmonary vascular congestion. No infiltrate, pleural effusion or pneumothorax. No acute osseous abnormality evident. IMPRESSION: Mild pulmonary vascular congestion. Electronically signed by Denis Rosales 03-07-2025 5:00 PM Femur X-Ray 03/08/25 08:15 XR femur RT 1V CLINICAL HISTORY: previous R femur fx, no surgery COMPARISON: 03/02/2023 FINDINGS: There is an old oblique ununited mildly comminuted mildly displaced fracture at the distal femoral metaphysis. Alignment is grossly stable. Evaluation of the proximal femur is limited by habitus and technical aspects. No new fracture or dislocation seen at the right femur. IMPRESSION: Stable ununited fracture at the distal femur. ACT 112: Negative or not required by law. Electronically signed by: Daryl Mccullough M.D. 03/08/2025 9:28 AM Medications Administered Current Inpatient Medications Acetaminophen (Acetaminophen 325 Mg Tab) 650 mg PO Q4H PRN PRN Reason: Pain or Fever Stop: 04/06/25 22:01 Albuterol (Albut/Ipratrop 3mg/0.5mg Neb 3 Ml Vial) 3 ml NEB Q6R ASIYA; Protocol Stop: 04/07/25 00:59 Last Admin: 03/09/25 07:28 Dose: 3 ml Aspirin (Aspirin 81 Mg Ectab) 81 mg PO QAM ASIYA Stop: 04/07/25 08:59 Last Admin: 03/09/25 08:28 Dose: 81 mg Atorvastatin Calcium (Atorvastatin 40 Mg Tab) 40 mg PO QPM ASIYA Stop: 04/06/25 22:01 Last Admin: 03/08/25 20:44 Dose: 40 mg Budesonide (Budesonide 0.5 Mg/2 Ml Vial (Pulmicort)) 0.5 mg NEB BIDR ASIYA Stop: 04/06/25 22:01 Last Admin: 03/09/25 07:29 Dose: 0.5 mg Bupropion HCl (Bupropion Sr 100 Mg Tabcr) 100 mg PO QAM ASIYA Stop: 04/07/25 08:59 Last Admin: 03/09/25 08:28 Dose: 100 mg Bupropion HCl (Bupropion Sr 100 Mg Tabcr) 200 mg PO HS ASIYA Stop: 04/06/25 22:29 Last Admin: 03/08/25 20:40 Dose: 200 mg Dextrose (Dextrose 50% 50 Ml Syringe) 25 - 50 ml IV UD PRN; Protocol PRN Reason: Hypoglycemia Protocol Stop: 04/06/25 22:01 Diclofenac Sodium (Diclofenac Sod 1% Gel 100 Gm Tube) 4 gm EXT QID PRN; Protocol PRN Reason: Pain Stop: 04/06/25 22:01 Last Admin: 03/09/25 08:29 Dose: 4 gm Diclofenac Sodium (Diclofenac Sodium 75 Mg Tabcr) 75 mg PO BID ASIYA Stop: 04/06/25 22:01 Last Admin: 03/09/25 08:41 Dose: 75 mg Empagliflozin (Empagliflozin 10 Mg Tab) 10 mg PO QAM ASIYA Stop: 04/07/25 08:59 Last Admin: 03/09/25 08:28 Dose: 10 mg Famotidine (Famotidine 20 Mg Tab) 20 mg PO DAILY PRN PRN Reason: heartburn Stop: 04/06/25 22:01 Folic Acid (Folic Acid 1 Mg Tab) 1 mg PO QAM [facility] Stop: 04/07/25 08:59 Last Admin: 03/09/25 08:27 Dose: 1 mg Furosemide (Furosemide 40 Mg/4 Ml Vial) 40 mg IV BID [facility] Stop: 04/07/25 08:59 Last Admin: 03/09/25 08:24 Dose: 40 mg Glucagon (Glucagon For Inj 1 Mg Vial) 1 mg SQ UD PRN; Protocol PRN Reason: Hypoglycemia Protocol Stop: 04/06/25 22:01 Glucose (Glucose 40% Gel 15 Gm Tube) 15 - 30 gm PO UD PRN; Protocol PRN Reason: Hypoglycemia Protocol Stop: 04/06/25 22:01 Glucose (Glucose 10 Tab/Tube) 4 - 8 tab PO UD PRN; Protocol PRN Reason: Hypoglycemia Protocol Stop: 04/06/25 22:01 Heparin Sodium (Porcine) (Heparin Sod 5,000 Unit/0.5 Ml Vial) 5,000 units SQ Q8H [facility] Stop: 04/07/25 05:59 Last Admin: 03/09/25 05:59 Dose: 5,000 units Insulin Aspart (Insulin Aspart Per Unit Charge) 0 units SC ACHS ASIYA Stop: 04/07/25 16:29 Last Admin: 03/09/25 08:22 Dose: 12 units Insulin Glargine (Lantus Per Unit Charge) 15 units SQ BID [facility] Stop: 04/08/25 08:59 Last Admin: 03/09/25 08:21 Dose: 15 units Isosorbide Mononitrate (Isosorbide [place] Extended Rel 60 Mg Tabcr) 60 mg PO [facility] Stop: 04/07/25 08:59 Last Admin: 03/09/25 08:28 Dose: 60 mg Levothyroxine Sodium (Levothyroxine Sodium 25 Mcg Tablet) [facility] Stop: 04/07/25 06:29 Last Admin: 03/09/25 05:59 Dose: 25 mcg Levothyroxine Sodium (Levothyroxine Sodium 200 Mcg Tablet) [facility] Stop: 04/07/25 06:29 Last Admin: 03/09/25 05:59 Dose: 200 mcg Magnesium Oxide (Magnesium Oxide 400 Mg Tab) 400 mg PO [facility] Stop: 04/07/25 08:59 Last Admin: 03/09/25 08:28 Dose: 400 mg Metoprolol Tartrate (Metoprolol Tartrate 25 Mg Tab) 25 mg PO BID [facility] Stop: 04/06/25 22:01 Last Admin: 03/09/25 08:27 Dose: 25 mg Miscellaneous (Carbohydrates For Hypoglycemia ) 15 - 30 gm PO UD PRN PRN Reason: Hypoglycemia Protocol Stop: 04/06/25 22:01 Miscellaneous Information (Pharmacy Glycemic Mgmt Consult) 1 each N/A UD PRN; Protocol PRN Reason: Consult Stop: 04/07/25 14:31 Multivitamins (Multivitamin Tab) 1 tab PO [facility] Stop: 04/07/25 08:59 Last Admin: 03/09/25 08:27 Dose: 1 tab Oxycodone HCl (Oxycodone Hcl Ir 5 Mg Tab (Immediate Release)) 10 mg PO Q6H PRN PRN Reason: Pain Stop: 03/21/25 22:01 Last Admin: 03/07/25 23:13 Dose: 10 mg Pantoprazole Sodium (Pantoprazole 40 Mg Tab) [facility] Stop: 04/07/25 06:29 Last Admin: 03/09/25 05:59 Dose: 40 mg Potassium Chloride (Potassium Chloride Crtab 20 Meq Tabcr) 20 meq PO BID [facility] Stop: 04/06/25 22:01 Last Admin: 03/09/25 08:27 Dose: 20 meq Sertraline HCl (Sertraline Hcl 50 Mg Tablet) 50 mg PO [facility] Stop: 04/07/25 08:59 Last Admin: 03/09/25 08:27 Dose: 50 mg Spironolactone (Spironolactone 25 Mg Tab) 25 mg PO QAM [facility] Stop: 04/07/25 08:59 Last Admin: 03/09/25 08:41 Dose: 25 mg Topiramate (Topiramate 100 Mg Tab) 100 mg PO QAM [facility] Stop: 04/07/25 08:59 Last Admin: 03/09/25 08:41 Dose: 100 mg Topiramate (Topiramate 100 Mg Tab) 200 mg PO [facility] Stop: 04/06/25 22:29 Last Admin: 03/08/25 20:43 Dose: 200 mg
--- NOTE | 2025-03-09 13:43 | Pharmacy Report ---
Pharmacy Glycemic Short Note 2 - Date of Service March 09, 2025 - Glycemic Short BSG Results (Last 24 hours): 03/08/25 03/08/25 03/09/25 16:23 20:33 06:09 Glucose 147 H POC Glucose 175 H 158 H 03/09/25 03/09/25 07:23 11:36 Glucose POC Glucose 142 H 177 H OUTPATIENT ANTIDIABETIC REGIMEN: * Novolog insulin pump * Basal 106.5 units/day * Bolus: ICR of 3, SF of 10 () and 17 () w/ goal range of 140-150 mg/dL * Empagliflozin 10 mg PO daily HbA1c: 7.1% (03/09/25) ASSESSMENT: * DC is a 69 year old female well known to pharmacy glycemic service due to nu merous admissions/consultations * Prior data may be skewed at times due to administration of IV steroids, but historically patient has had dramatically different insulin requirements from admission to admission * Given this lability and history of borderline low blood sugars in the 80s, will be somewhat conservative with initial dosing since no steroids at this time * Patient with history of HFpEF, will continue home empagliflozin * Diet ordered PLAN FOR INPATIENT GLYCEMIC CONTROL: * Empagliflozin 10 mg PO daily * Basal insulin * Lantus 15 units SC x 1 this morning, 15 units SC x 1 at lunch * Lantus 0-10-15 units SC HS x 1 * Reassess in AM * Bolus insulin * NovoLog per scale ACHS or Q6hrs while NPO * Goal Range: Low 110 mg/dL - High 140 mg/dL * Correction Factor: 10 mg/dL/unit * Nutritional / Prandial insulin per carb ratio of 1 unit per 3 grams CHO consumed
[2025-03-09] MEDS ORDERED: LANTUS PER UNIT CHARGE SQ ONE (13:45)
[2025-03-09] MEDS: LANTUS PER UNIT CHARGE SQ ONE ×2 (13:52→21:20)
[2025-03-10 08:05] LABS: Basophils # (auto) 0.06 K/uL (0.00-0.20); Basophils % (auto) 0.5 %; Eosinophils # (auto) 0.24 K/uL (0.00-0.50); Eosinophils % (auto) 2.1 %; Hematocrit (blood only) 38.7 % (37.0-47.0); Hemoglobin 11.1 g/dl (12.0-16.0); Immature Granulocytes # (auto) 0.07 K/uL (0.01-0.20); Immature Granulocytes % (auto) 0.6 %; Lymphocytes # (auto) 1.43 K/uL (1.20-3.40); Lymphocytes % (auto) 12.8 %; Mean Corpuscular Hemoglobin 26.2 pg (25.0-34.0); Mean Corpuscular Hgb Conc 28.7 g/dL (32.0-36.0); Mean Corpuscular Volume 91.3 fL (80.0-100.0); Mean Platelet Volume 9.4 fL (9.4-12.4); Monocytes # (auto) 0.87 K/uL (0.11-0.59); Monocytes % (auto) 7.8 %; Neutrophils # (auto) 8.53 K/uL (1.40-6.50); Neutrophils % (auto) 76.2 %; Platelet Count 220 K/uL (130-400); RDW Standard Deviation 56.3 fL (36.4-46.3); Red Blood Count 4.24 M/uL (4.20-5.40)
[2025-03-10 08:17] LABS: BUN Creatinine Ratio 28.4 (10-20); Calcium 8.7 mg/dl (8.6-10.3); Creatinine Clr Calc Pharmacy 45.2 ml/min; Potassium 4.4 mmol/L (3.5-5.1)
[2025-03-10] MEDS: FAMOTIDINE 20 MG TAB PO PRN (08:50)
[2025-03-10] MEDS: SUCRALFATE 1 GM/10 ML UDC PO ONE (10:27)
[2025-03-10] MEDS: LANTUS PER UNIT CHARGE SQ SCH (12:18)
--- NOTE | 2025-03-10 20:06 | Hospitalist Progress Note ---
Date of Service March 10, 2025 Assessment & Plan (1) Obesity hypoventilation syndrome: (2) Acute respiratory acidosis: (3) Acute on chronic heart failure with preserved ejection fraction: (4) Tracheostomy in place: (5) Chronic kidney disease, stage 3: Plan 69-year-old female with significant past medical history of obstructive sleep apnea, obesity hypoventilation syndrome, cor pulmonale, COPD, insulin-dependent diabetes mellitus, chronic nonweightbearing of her right lower extremity due to nonhealing fracture who presents to the emergency room due to shortness of breath. #Acute on chronic heart failure with preserved ejection fraction / RASHAAD / obesity hypoventilation / Acute respiratory failure with acidosis and hypercapnia / tracheostomy in place -Lasix 40mg IV BID, paul catheter inserted in the ER -Continue metoprolol and Jardiance -Similar respiratory acidosis prior admission which improved with diuresis, will repeat VBG in AM, aim O2 around 88-92% - Echo showed a EF of 60-65 with grade 2 diastolic dysfunction. - Cardiology consulted and recommends to continue on 40 mg Lasix IV twice daily. Should be on torsemide 30 mg daily per [facility] chart. -Patient continues to tolerate above diuresis. will continue on 03/10 # CKD - Has a history of CKD with a baseline creatinine of 1.41.8. Slight elevation in creatinine at 1.9 on 03/09. - Most likely secondary to her Lasix will refer to cardiology #COPD -No wheezing on exam to suggest exacerbation but improvement with duoneb in the ER therefore will continue this along with her usual COPD maintenance therapy #T2DM -Continue insulin pump with BSG ACHS. Unfortunately out of supplies at this time. Will change to sliding scale insulin with glucose checks at meals. -Continue Jardiane - informatics educator consulted. Pharmacology glycemic consult. - Hemoglobin A1c on 03/09 was 7.1. Follow-up as outpatient. #Chronic pain #Ambulatory dysfunction -Continue oxycodone PRN, PDMP checked - Patient's chronic pain and ambulatory dysfunction stemming from a femur fracture. - X-ray of the right femur showed Stable ununited fracture at the distal femur. Follow-up as an outpatient. VTE Prophylaxis - Heparin 5000 units SQ q8h Disposition - admit to PCU Admission and Anticipated Discharge Date Admission Date: March 07, 2025 Subjective Patient reports no new symptoms. Review of Systems Review of Systems: All systems reviewed & are unremarkable except as noted in HPI & below Physical Exam Constitutional: WD/WN, vitals as above Respiratory: able to speak in complete sentences; no labored breathing, does not use accessory muscles and no audible wheezes Auscultation: + diminished lung sounds (bibasal); no crackles and no wheezes Cardiovascular: Rate/Rhythm: regular rate and regular rhythm Heart Sounds: no murmur Extremities: normal capillary refill and + pedal edema (1+ b/l equal); no calf tenderness Neurologic: awake; not confused Psychiatric: A+Ox3, euthymic affect Results & Data Results & Data Vital Signs (Past 12 Hours) Vital Signs Temp Pulse Pulse Resp BP BP Pulse Ox 03/10/25 15:19 36.8 C 67 18 123/63 93 03/10/25 14:02 72 20 96 03/10/25 13:30 68 03/10/25 11:06 36.8 C 67 20 120/72 92 03/10/25 10:00 O2 Del Method O2 Flow Rate FiO2 03/10/25 15:19 Trach Collar 03/10/25 14:02 Trach Collar 7 30 03/10/25 13:30 03/10/25 11:06 Trach Collar 03/10/25 10:00 Trach Collar 9 PG Care Time/CCT Total # of Minutes Spent Total Time Spent with Patient: Total time spent is greater than 50% in coordination of care (as documented) at patient's floor/unit and/or counseling patient: Coding Level of Care Code 05225 SUB INP/OBS CARE 3/50MIN Diagnoses Obesity hypoventilation syndrome E66.2 Acute respiratory acidosis J96.02 Acute on chronic heart failure with preserved ejection fraction I50.[address] Z93.0 Chronic kidney disease, stage 3 N18.30 Time Spent (min) 50 Comment chart review
[2025-03-11 06:43] LABS: Hematocrit (blood only) 36.7 % (37.0-47.0); Hemoglobin 10.6 g/dl (12.0-16.0); Mean Corpuscular Hemoglobin 26.6 pg (25.0-34.0); Mean Corpuscular Hgb Conc 28.9 g/dL (32.0-36.0); Mean Platelet Volume 9.7 fL (9.4-12.4); Platelet Count 213 K/uL (130-400); RDW Coefficient of Variation 16.6 % (11.5-14.5); RDW Standard Deviation 56.5 fL (36.4-46.3); Red Blood Count 3.99 M/uL (4.20-5.40); White Blood Count 10.42 K/ul (4.8-10.8)
[2025-03-11 06:57] LABS: BUN Creatinine Ratio 29.7 (10-20); Calcium 8.4 mg/dl (8.6-10.3); Potassium 4.2 mmol/L (3.5-5.1)
--- NOTE | 2025-03-11 08:58 | Hospitalist Progress Note ---
Date of Service March 11, 2025 Assessment & Plan (1) Obesity hypoventilation syndrome: (2) Acute respiratory acidosis: (3) Acute on chronic heart failure with preserved ejection fraction: (4) Tracheostomy in place: (5) Chronic kidney disease, stage 3: Plan 69-year-old female with significant past medical history of obstructive sleep apnea, obesity hypoventilation syndrome, cor pulmonale, COPD, insulin-dependent diabetes mellitus, chronic nonweightbearing of her right lower extremity due to nonhealing fracture who presents to the emergency room due to shortness of breath. #Acute on chronic heart failure with preserved ejection fraction / RASHAAD / obesity hypoventilation / Acute respiratory failure with acidosis and hypercapnia / tracheostomy in place -Lasix 40mg IV BID, paul catheter inserted in the ER -Continue metoprolol and Jardiance -Similar respiratory acidosis prior admission which improved with diuresis, will repeat VBG in AM, aim O2 around 88-92% - Echo showed a EF of 60-65 with grade 2 diastolic dysfunction. - Cardiology consulted and recommends to continue on 40 mg Lasix IV twice daily. Should be on torsemide 30 mg daily per [facility] chart. Continues to diurese well # CKD - Has a history of CKD with a baseline creatinine of 1.41.8. Creatinine improving. #COPD Continue DuoNeb along with her usual COPD maintenance therapy #T2DM -Continue insulin pump with BSG ACHS. Unfortunately out of supplies at this time. Will change to sliding scale insulin with glucose checks at meals. -Continue Jardiance - clinical trial educator consulted. Pharmacology glycemic consult. - Hemoglobin A1c on 03/09 was 7.1. Follow-up as outpatient. #Chronic pain #Ambulatory dysfunction -Continue oxycodone PRN, PDMP checked - Patient's chronic pain and ambulatory dysfunction stemming from a femur fracture. - X-ray of the right femur showed Stable ununited fracture at the distal femur. Follow-up as an outpatient. VTE Prophylaxis - Heparin 5000 units SQ q8h Disposition - admit to PCU Admission and Anticipated Discharge Date Admission Date: March 07, 2025 Supervising Physician Co-Signing Physician Notes I personally examined the patient and verified all pappas points of history and exam, discussed case, and agree with decision making with Dr Lima. Feeling better. Breathing feeling betternot yet back at baseline, however. Vitals noted, in general she is awake and alert pleasant no distress. HEENT normocephalic atraumatic mucous membranes moist. Lungs show Rales to mid lung hale bilaterally. No accessory muscle use no respiratory distress. Acute hypoxic respiratory failure w/ hypercapnea, s/p tracheostomy - O2 per protocol Acute on chronic HFpEF in the setting of multiple respiratory comorbidities - Doing better, continue diuresis and follow closely. Chronic pain with ambulatory dysfunction in the setting of R femur fracture - XR shows unchanged, nonunited fracture Lives at home with daughter, current plan will be to have her go back home with her daughter once she is adequately diuresed. DVT prophylaxisheparin subcu Subjective Patient seen and evaluated at bedside this morning. No acute events overnight. Resting comfortably this morning. Continues to require 7L supplemental oxygen. Baseline is 5L HS only. -2.2L last 24 hours. Review of Systems Review of Systems: reviewed, per HPI Physical Exam Physical Exam: Constitutional: obese, no acute distress HEENT: NCAT, no conjunctival injection, Tracheostomy in place CV: extremities well-perfused, mild LE edema Resp: no increased work of breathing, on 7L oxygen, +b/l rales GI: obese MSK: no gross deformities appreciated Skin: warm, dry, no rash appreciated Neuro: alert, oriented, no focal neurologic deficit appreciated Results & Data Results & Data Vital Signs (Past 12 Hours) Vital Signs Temp Pulse Pulse Resp BP BP Pulse Ox 03/11/25 08:10 37.1 C 83 20 137/83 90 03/11/25 07:18 70 19 92 03/11/25 03:16 37.1 C 69 17 114/65 93 03/11/25 02:11 66 16 92 03/11/25 00:00 37.1 C 64 24 119/69 93 03/10/25 22:42 70 O2 Del Method O2 Flow Rate FiO2 03/11/25 08:10 Trach Collar 7.0 03/11/25 07:18 Trach Collar 7 30 03/11/25 03:16 Trach Collar 8 03/11/25 02:11 Trach Collar 7 30 03/11/25 00:00 Trach Collar 7 03/10/25 22:42 Resident Activity Tracking Resident Involvement: Resident Care Provided Care Provided: Adult [facility]
--- NOTE | 2025-03-11 12:03 | Pharmacy Report ---
Pharmacy Glycemic Short Note 2 - Date of Service March 11, 2025 - Glycemic Short BSG Results (Last 24 hours): 03/10/25 03/10/25 03/11/25 16:24 19:47 05:47 Glucose 124 H POC Glucose 122 H 136 H 03/11/25 03/11/25 07:21 10:55 Glucose POC Glucose 119 H 182 H OUTPATIENT ANTIDIABETIC REGIMEN: * Novolog insulin pump * Basal 106.5 units/day * Bolus: ICR of 3, SF of 10 (-) and 17 () w/ goal range of 140-150 mg/dL * Empagliflozin 10 mg PO daily HbA1c: 7.1% (03/09/25) ASSESSMENT: 03/11: * BSGs largely within goal the last 24h: [phone]/dL. Received 40 units of basal and 33 units of bolus insulin yesterday. * Tolerating diet, other stressors stable. * Lantus dose titrated over the weekend to 40 units daily. Continue for now. No change to Novolog parameters - continue 08/23. 03/09: * DC is a 69 year old female well known to pharmacy glycemic service due to numerous admissions/consultations * Prior data may be skewed at times due to administration of IV steroids, but historically patient has had dramatically different insulin requirements from admission to admission * Given this lability and history of borderline low blood sugars in the 80s, will be somewhat conservative with initial dosing since no steroids at this time * Patient with history of HFpEF, will continue home empagliflozin * Diet ordered PLAN FOR INPATIENT GLYCEMIC CONTROL: * Empagliflozin 10 mg PO daily * Basal insulin * Lantus 40 units SQ daily * Bolus insulin * NovoLog per scale ACHS or Q6hrs while NPO * Goal Range: Low 110 mg/dL - High 140 mg/dL * Correction Factor: 10 mg/dL/unit * Nutritional / Prandial insulin per carb ratio of 1 unit per 3 grams CHO consumed
[2025-03-11] MEDS: ACETAMINOPHEN 325 MG TAB PO PRN (15:38)
--- NOTE | 2025-03-11 18:04 | Billing Data ---
Date of Service March 11, 2025 Coding Level of Care Code 48919 SUB INP/OBS CARE MIN
--- NOTE | 2025-03-12 07:24 | Hospitalist Progress Note ---
Date of Service March 12, 2025 Assessment & Plan (1) Obesity hypoventilation syndrome: (2) Acute respiratory acidosis: (3) Acute on chronic heart failure with preserved ejection fraction: (4) Tracheostomy in place: (5) Chronic kidney disease, stage 3: Plan 69-year-old female with significant past medical history of obstructive sleep apnea, obesity hypoventilation syndrome, cor pulmonale, COPD, insulin-dependent diabetes mellitus, chronic nonweightbearing of her right lower extremity due to nonhealing fracture who presents to the emergency room due to shortness of breath. #Acute on chronic heart failure with preserved ejection fraction / RASHAAD / obesity hypoventilation / Acute respiratory failure with acidosis and hypercapnia / tracheostomy in place -Lasix 40mg IV BID, paul catheter inserted in the ER -Continue metoprolol and Jardiance -Similar respiratory acidosis prior admission which improved with diuresis, will repeat VBG in AM, aim O2 around 88-92% - Echo showed a EF of 60-65 with grade 2 diastolic dysfunction. - Cardiology consulted and recommends to continue on 40 mg Lasix IV twice daily. Should be on torsemide 30 mg daily per [facility] chart. Continues to diurese well # CKD - Has a history of CKD with a baseline creatinine of 1.41.8. Creatinine improving. #COPD Continue DuoNeb along with her usual COPD maintenance therapy #T2DM -Continue insulin pump with BSG ACHS. Unfortunately out of supplies at this time. Will change to sliding scale insulin with glucose checks at meals. -Continue Jardiance - special educator consulted. Pharmacology glycemic consult. - Hemoglobin A1c on 03/09 was 7.1. Follow-up as outpatient. #Chronic pain #Ambulatory dysfunction -Continue oxycodone PRN, PDMP checked - Patient's chronic pain and ambulatory dysfunction stemming from a femur fracture. - X-ray of the right femur showed Stable ununited fracture at the distal femur. Follow-up as an outpatient. VTE Prophylaxis - Heparin 5000 units SQ q8h Disposition - admit to PCU, expect discharge 03/13 Admission and Anticipated Discharge Date Admission Date: March 07, 2025 Supervising Physician Co-Signing Physician Notes I personally examined the patient and verified all pappas points of history and exam, discussed case, and agree with decision making with Dr Lima. feeling better breathing better overall improved no new complaints Vitals noted, in general she is awake and alert pleasant no distress. HEENT normocephalic atraumatic mucous membranes moist. Lungs show Rales to mid lung hale bilaterally. No accessory muscle use no respiratory distress. Acute hypoxic respiratory failure w/ hypercapnea, s/p tracheostomy - O2 per protocol Acute on chronic HFpEF in the setting of multiple respiratory comorbidities - Doing better, continue diuresis - appears much better, probably home in the next 24hrs or so Chronic pain with ambulatory dysfunction in the setting of R femur fracture - XR shows unchanged, nonunited fracture Lives at home with daughter, current plan will be to have her go back home with her daughter once she is adequately diuresed. DVT prophylaxisheparin subcu Subjective Patient seen and evaluated at bedside this morning. No acute events overnight. Resting comfortably this morning. Baseline is 5L O2 HS only. -3.5L last 24 hours. Creatinine continues to improve Review of Systems Review of Systems: reviewed, per HPI Physical Exam Physical Exam: Constitutional: obese, no acute distress HEENT: NCAT, no conjunctival injection, Tracheostomy in place CV: extremities well-perfused, mild LE edema Resp: no increased work of breathing, decreasing oxygen requirement, rales improved GI: obese MSK: no gross deformities appreciated Skin: warm, dry, no rash appreciated Neuro: alert, oriented, no focal neurologic deficit appreciated Results & Data Results & Data Vital Signs (Past 12 Hours) Vital Signs Temp Pulse Pulse Resp BP Pulse Ox O2 Del Method 03/12/25 07:14 65 18 95 Trach Collar 03/12/25 02:32 74 03/12/25 02:01 36.7 C 69 18 132/71 95 Trach Collar 03/12/25 01:11 71 21 94 Trach Collar 03/11/25 22:34 36.9 C 73 18 131/98 91 Trach Collar 03/11/25 21:00 Nasal Cannula 03/11/25 19:40 37.2 C 67 18 115/68 95 Trach Collar O2 Flow Rate FiO2 03/12/25 07:14 8 30 03/12/25 02:32 03/12/25 02:01 03/12/25 01:11 6 30 03/11/25 22:34 7 03/11/25 21:00 6 03/11/25 19:40 6 Resident Activity Tracking Resident Involvement: Resident Care Provided Care Provided: Adult Hospital Medicine
[2025-03-12 10:48] LABS: Calcium 8.4 mg/dl (8.6-10.3); Potassium 4.2 mmol/L (3.5-5.1)
[2025-03-12 10:54] LABS: BUN Creatinine Ratio 28.3 (10-20); Creatinine Clr Calc Pharmacy 49.5 ml/min
--- NOTE | 2025-03-12 12:13 | Billing Data ---
Date of Service March 12, 2025 Coding Level of Care Code 01332 SUB INP/OBS CARE
[2025-03-13 08:21] VITALS: TEMP 98.2
[2025-03-13 08:59] LABS: BUN Creatinine Ratio 25.9 (10-20); Calcium 8.6 mg/dl (8.6-10.3); Creatinine Clr Calc Pharmacy 46.9 ml/min; Potassium 4.2 mmol/L (3.5-5.1)
--- NOTE | 2025-03-13 10:08 | Discharge Summary ---
Date of Service March 13, 2025 Admission HPI Per Admitting Provider Whit Connelly is a 69-year-old female with significant past medical history of obstructive sleep apnea, obesity hypoventilation syndrome, cor pulmonale, COPD, insulin-dependent diabetes mellitus, chronic nonweightbearing of her right lower extremity due to nonhealing fracture who presents to the emergency room due to shortness of breath. She feels similar to prior occurrences of heart failure. 2- 3 weeks with increased weakness, productive cough and weight gain of 40lb. Some chills at home. She reports the nebulizer helped her breathing in the ER. She has a tracheostomy but is usually on room air during the day with 5LPM O2 at night. Paul catheter placed in emergency room for accurate I&Os. She is unsure what diuretics she takes currently (both furosemide and torsemide currently listed). No recent change in diet. Admission Exam Per Admitting Provider Constitutional: WD/WN, vitals as above Respiratory: + labored breathing, + uses accessory mu scles and able to speak in complete sentences; no audible wheezes Auscultation: + diminished lung sounds (bibasal); no crackles and no wheezes Cardiovascular: Rate/Rhythm: regular rate and regular rhythm Heart Sounds: no murmur Extremities: normal capillary refill and + pedal edema (1+ b/l equal); no calf tenderness Gastrointestinal (Abdomen): Large abdominal pannus Skin: excoriation lu on arm and abdomen without surrounding cellulitic changes Neurologic: awake; not confused Psychiatric: A+Ox3, euthymic affect Principal Diagnosis CHF Exacerbation Discharge Exam Constitutional: obese, no acute distress HEENT: NCAT, no conjunctival injection, Tracheostomy in place CV: extremities well-perfused, mild LE edema Resp: no increased work of breathing, decreasing oxygen requirement, rales improved GI: obese MSK: no gross deformities appreciated Skin: warm, dry, no rash appreciated Neuro: alert, oriented, no focal neurologic deficit appreciated Discharge Data Allergies Allergy/AdvReac Type Severity Reaction Status Date / Time animal dander Allergy Intermediate Sneezing, Unverified 12/19/24 09:20 itchy watery eyes and Difficulty Breathing Penicillins Allergy Intermediate Hives Verified 12/19/24 09:20 tree and shrub pollen Allergy Intermediate Sneezing, Unverified 12/19/24 09:20 itchy watery eyes and Difficulty Breathing amitriptyline Allergy Unknown CAN'T Verified 12/19/24 09:20 REMEMBER doxycycline Allergy Unknown CAN'T Verified 12/19/24 09:20 REMEMBER guaifenesin Allergy Unknown CAN'T Verified 12/19/24 09:20 REMEMBER metformin Allergy Unknown CAN'T Verified 12/19/24 09:20 REMEMBER phenylephrine Allergy Unknown CAN'T Verified 12/19/24 09:20 REMEMBER pseudoephedrine Allergy Unknown CAN'T Verified 12/19/24 09:20 REMEMBER tetracycline Allergy Unknown CAN'T Verified 12/19/24 09:20 REMEMBER venlafaxine [From Effexor] Allergy Unknown CAN'T Verified 12/19/24 09:20 REMEMBER gabapentin AdvReac Intermediate BECOMES Verified 12/19/24 09:20 AGGRESSIVE Consultations 03/07/25 19:43 ED Decision to Admit Stat 03/08/25 08:08 Consult Cardiology Routine Hospital Course (1) Obesity hypoventilation syndrome: (2) Acute respiratory acidosis: (3) Acute on chronic heart failure with preserved ejection fraction: (4) Tracheostomy in place: (5) Chronic kidney disease, stage 3: Plan 69-year-old female with significant past medical history of obstructive sleep apnea, obesity hypoventilation syndrome, cor pulmonale, COPD, insulin-dependent diabetes mellitus, chronic nonweightbearing of her right lower extremity due to nonhealing fracture who presents to the emergency room due to shortness of breath. #Acute on chronic heart failure with preserved ejection fraction / RASHAAD / obesity hypoventilation / Acute respiratory failure with acidosis and hypercapnia / tracheostomy in place -Lasix 40mg IV BID, paul catheter inserted in the ER -Continue metoprolol and Jardiance -Similar respiratory acidosis prior admission which improved with diuresis, will repeat VBG in AM, aim O2 around 88-92% - Echo showed a EF of 60-65 with grade 2 diastolic dysfunction. - Cardiology consulted and recommends to continue on 40 mg Lasix IV twice daily. Should be on torsemide 30 mg daily per [facility] chart. Continues to diurese well # CKD - Has a history of CKD with a baseline creatinine of 1.41.8. Creatinine improving. #COPD Resume outpatient regimen #T2DM -Continue insulin pump with BSG ACHS. Unfortunately out of supplies at this time. Will change to sliding scale insulin with glucose checks at meals. -Continue Jardiance - academic director consulted. Pharmacology glycemic consult. - Hemoglobin A1c on 03/09 was 7.1. Follow-up as outpatient. #Chronic pain #Ambulatory dysfunction -Continue oxycodone PRN, PDMP checked - Patient's chronic pain and ambulatory dysfunction stemming from a femur fracture. - X-ray of the right femur showed Stable ununited fracture at the distal femur. Follow-up as an outpatient. Total Time Total Time Spent Total Time Spent (In Minutes): <30 Discharge Plan Discharge Items Patient Disposition: Home - Home Health Services Reason For Visit: ACUTE HFPEF Discharge Diagnosis: CHF exacerbation Activity: Resume your previous activity Activity Comment: as tolerated Non-emergency contact: Primary Care Provider and Petroleum Inspector Call non-emergency contact if: you have any medication questions, your symptoms worsen and you have a fever Follow-up/Referrals: Ofe Mcgee MD [Primary Care Provider] - 03/18/25 10:40 am (Hospital follow up on March 18 at 10:40 am with an arrival time of 10:25 am.) Diet: Carb Consistent or DM2 and Heart Healthy Addtl Attending Provider Instructions: You were admitted to the hospital for CHF exacerbation. You were treated with IV Lasix. In total, it appears that we were able to remove about 13 liters of fluid in total while you were hospitalized. You should resume your home torsemide (30mg daily) when you get home. We shantelle send a new script to your pharmacy for this A discharge summary will be sent to your primary care physician to ensure continuity of care. Please bring this discharge summary with you to your next office appointment so that your provider can review it at that time. Follow-up appointments: Make a follow-up appointment with your PCP within the next week. It is very important that you follow up with them shortly after discharge from the hospital. Keep all your follow-up appointments as already scheduled. If you cannot make an appointment, notify your provider. Medications: Your medication list has been reviewed and reconciled upon discharge to ensure accuracy and continuity of care. An updated list of all your medications is included with your hospital discharge paperwork. Please review this list closely, and make note of any changes. We sent a new medication called Torsemide to your pharmacy. Take Torsemide (10mg) three (3) tablets daily. If you have any issues filling these prescriptions, please call [phone] and ask to leave a message for Dr. Geovany Lima. Take your medications as instructed; do not skip a dose of your medicines. Make sure all of your doctors know every medicine you are taking (including ihpn-cqs-mqwkshb medicines, vitamins, and supplements). Call your primary care provider before taking any new medicines (including darv-apc-voescqt medicines, vitamins, and supplements), because some of these may interact with your current medications, or may make your symptoms worse. Tell your primary care provider if you cannot afford your medications. CONTACT YOUR PRIMARY CARE PROVIDER if you experience any of the following: Difficulty Breathing Increased Swelling in Your Lower Extremities Difficulty following your treatment plan, or difficulty taking medications CALL 911 OR GO TO THE EMERGENCY DEPARTMENT if you experience any of the following: Sudden, severe abdominal pain or nausea/vomiting Severe chest pain, or chest pain that radiates (moves) to your jaw or arm Sudden, severe shortness of breath or difficulty breathing Thank you for allowing us to participate in your care. Addtl Receiving And Processing Supervisor Provider Instructions: DIABETES - You received 40 units of Lantus around noon today. - To help lower risk of hypoglycemia later today/overnight, recommend you restart your insulin pump tomorrow morning (~10am) instead of starting it as soon as you get home today. - Until you restart your insulin pump, you will need to administer Novolog via a syringe to provide coverage for meals consumed. - If you have any questions, please call our diabetes office at [phone]. Pending Studies at Discharge: No Stand-Alone Forms: [facility] Medications and DC Order Prescriptions: New torsemide 10 mg tablet 30 mg PO QAM Qty: 90 1RF Continued (DME) blood-glucose meter [OneTouch Ultra2 Meter] Misc See Rx Instructions .Route Qty: 1 0RF Rx Instructions: As directed insulin aspart U-100 [Novolog U-100 Insulin aspart] 100 unit/mL solution See Rx Instructions subcut DAILY Qty: 100 4RF Rx Instructions: For insulin pump 300 units a day. (DME) nebulizers Misc See Rx Instructions .Route Qty: 1 0RF Rx Instructions: PLEASE REPLACE COMPRESSOR; PREVIOUS ONE BROKEN BEYOND REPAIR (DME) pen needle, diabetic [BD Kaitlin 2nd Gen Pen Needle] 32 gauge x 5/32" needle See Rx Instructions miscellaneous .MEDSUPPLY Qty: 50 0RF Rx Instructions: As directed (DME) pen needle, diabetic [BD Kaitlin 2nd Gen Pen Needle] 32 gauge x 5/32" needle See Rx Instructions miscellaneous .MEDSUPPLY Qty: 150 5RF Rx Instructions: change new pen 5x a day ipratropium-albuterol 0.5 mg-3 mg(2.5 mg base)/3 mL solution for nebulization 3 ml INHALATION Q4H PRN (Reason: COUGHING, WHEEZING, SHORTNESS OF BREATH) Qty: 180 4RF (DME) OneTouch Ultra Test Strip See Rx Instructions .Route Qty: 400 3RF Rx Instructions: As directed four times per day to monitor blood glucose multivitamin Tablet 1 tab PO QAM Qty: 30 1RF atorvastatin 40 mg tablet 40 mg PO QPM Qty: 30 1RF aspirin [Robert Low Dose Aspirin] 81 mg Tablet,Delayed Release (Dr/Ec) 81 mg PO QAM Qty: 30 1RF spironolactone 25 mg Tablet 25 mg PO QAM Qty: 30 1RF pantoprazole 40 mg Tablet,Delayed Release (Dr/Ec) 40 mg PO DAILYBB Qty: 30 1RF nitroglycerin 0.4 mg tablet, sublingual 0.4 mg SL DIRECTED PRN (Reason: Chest Pain) Qty: 25 0RF folic acid 1 mg Tablet 1 mg PO QAM Qty: 30 1RF sertraline 50 mg Tablet 50 mg PO QAM Qty: 30 1RF magnesium oxide 400 mg magnesium Tablet 400 mg PO QAM Qty: 30 1RF diclofenac sodium [Voltaren Arthritis Pain] 1 % gel 4 g EXT QID PRN (Reason: Pain) naloxone [Narcan] 4 mg/actuation spray,non-aerosol 4 mg INTRANASAL DIRECTED PRN (Reason: OVERDOSE) bupropion HCl 100 mg tablet sustained-release 12 hr 100 mg PO UD Rx Instructions: Take 100mg by mouth in the morning and 200mg by mouth at bedtime potassium chloride 20 mEq tablet extended release 20 meq PO BID diclofenac sodium 75 mg Tablet,Delayed Release (Dr/Ec) 75 mg PO BID Qty: 60 0RF famotidine 20 mg Tablet 20 mg PO DAILY PRN (Reason: heartburn) Qty: 30 0RF budesonide 0.5 mg/2 mL Suspension For Nebulization 0.5 mg NEB BIDR Qty: 120 0RF Combivent Respimat 20-100 mcg/actuation mist 1 puff INHALATION QID PRN (Reason: shortness of breath) Qty: 4 3RF Rx Instructions: space evenly during waking hours oxycodone 10 mg tablet 10 mg PO DIRECTED PRN (Reason: Pain) Rx Instructions: filled 09/07 30 day supply Jardiance 10 mg tablet 10 mg PO UD Rx Instructions: 10 mg daily Last filled August 18 for 30 day supply. Pt no longer taking? levothyroxine 25 mcg tablet 25 mcg PO UD Rx Instructions: Take 25mcg w/ 200mcg by mouth to equal 225mcg every morning. isosorbide mononitrate 60 mg tablet extended release 24 hr 60 mg PO QAM levothyroxine 200 mcg tablet 200 mcg PO UD Rx Instructions: Take 200mcg w/ 25mcg by mouth to equal 225mcg every morning. topiramate 100 mg tablet 100 mg PO UD Rx Instructions: Take 100mg by mouth in the morning and 200mg by mouth at bedtime metoprolol tartrate 25 mg tablet 25 mg PO BID Discontinued furosemide 80 mg tablet 80 mg PO QAM torsemide 20 mg tablet 40 mg PO QAM Discharge Orders: Discharge Order- CHF (Routine); Ordered 03/13/25 Ordered By: Geovany Lima Admission Data Admit Date/Time: 03/07/25 19:49 Attending Provider: Patrick Mansfield Admit Provider: Gregory Jensen Primary Care Provider: Ofe Mcgee Other Providers: Gregory Jensen; Camila Lacey; Aman Marley; Eber Hernandez; Surya Mendoza; Mohit France; Neftali Aguiar Rebecca K; Halima Frias; Renard Constantino Ashley M.; Georeg Melchor; Brandon Snow; Yasmine Crow; Rose Morris; Yamilka Carranza; Long Mcfarland; Dinh Cruz; Chay[place] Grove; Judith Bunch; [facility] Other Interventions: Discharge Summary Assessment (RN) Last Done: 03/13/25 10:17 Supervising Physician Co-Signing Physician Notes I personally examined the patient and verified all pappas points of history and exam, discussed case, and agree with decision making with Dr Lima. feels better feels up to going home. Vitals noted, in general she is awake and alert pleasant no distress. HEENT normocephalic atraumatic mucous membranes moist. breathing unlabored no accessory mucsles good effort. Acute hypoxic respiratory failure w/ hypercapnea, s/p tracheostomy - now back to chronic baseline. Acute on chronic HFpEF in the setting of multiple respiratory comorbidities - Doing better, breathing feels around baseline, Cr sl bump -> about as dry as we can affect. safe/stable for home, outpt f/u Chronic pain with ambulatory dysfunction in the setting of R femur fracture - XR shows unchanged, nonunited fracture Lives at home with daughter, will go back home with her daughter. PCP is current 3rd year resident on service who will be arranging f/u DVT prophylaxisheparin subcu Resident Activity Tracking Resident Involvement: Resident Care Provided Care Provided: Adult Hospital Medicine
[2025-03-13 10:20] VITALS: BP 114/65
[2025-03-13 13:28] VITALS: PULSE 65; RESP 20; O2SAT 95
== END 2025-03-13 17:49 | disposition home health service (06) | DRG 291 ==
LOC: ED 15:26 → 2E 19:49 → SUATTDRO 19:49 → 2E 21:03

== ENCOUNTER 2025-03-25 11:43 | Inpatient (IN) ==
[2025-03-25] MEDS: oxyCODONE HCL IR 5 MG TAB (IMMEDIATE RELEASE) PO STA (12:26)
[2025-03-25] MEDS: ACETAMINOPHEN 500 MG TAB PO STA (12:27)
--- NOTE | 2025-03-25 12:27 | Emergency Department Note ---
Impression & Plan Respiratory acidosis, CHF (congestive heart failure), Elevated troponin, Elevated brain natriuretic peptide (BNP) level, Vomiting, Leukocytosis ED Provider Note NAME: ANN JACKSON AGE: 69 SEX: F : 1955 ARRIVES VIA: Ambulance INFORMANT: [Patient][caregiver] ED PROVIDER(S): [Jasper Verma MD] CHIEF COMPLAINT: Shortness of breath HISTORY OF PRESENT ILLNESS: The patient is a 69-year-old female with a tracheostomy. She was discharged from our hospital on the of last month. She was doing well up until about 3 days ago. The caregiver noticed that the patient had some nausea, some increased cough and some harder time keeping her O2 saturation in the normal range. She has been receiving Zofran for nausea. Unfortunately, she vomited last night. As per the caregiver, the patient's trach was worked on today and the cannula was dirty, bloody and possibly covered in mold. She is concerned about infection causing the symptoms today. The patient is asking for her typical Tylenol and oxycodone medications. Her daily meds for this morning were not given as they came to our ED instead. The patient does have a Payne catheter in place. She does not ambulate on her own. PMHx/PSHx/Social Hx: See Below PHYSICAL EXAM: GENERAL: Patient is in no acute distress. HEENT: No acute trauma, normocephalic atraumatic, mucous membranes moist, no nasal congestion. NECK: No stridor, no adenopathy, no meningismus, trachea is midline. Tracheostomy present. LUNGS: No obvious wheeze or crackle, breath sounds are diminished bilaterally. No respiratory distress. HEART: I could not hear heart tones given her body habitus. ABDOMEN: Soft, nontender, no peritonitis. Markedly obese. Payne catheter noted. EXTREMITIES: No cyanosis. She has chronic lower extremity skin change and chronic lower extremity edema. NEUROLOGIC: Oriented x 3. SKIN: No jaundice, no diaphoresis. DIFFERENTIAL DIAGNOSIS: Bronchitis or pneumonia, CHF, UTI, anemia, electrolyte imbalance, among others. EMERGENCY DEPARTMENT PROCEDURES: MEDICAL DECISION MAKING: There is a mild leukocytosis, this could be consistent with infection. There was a normal hemoglobin and platelet count. No coagulopathy. VBG did show a slight respiratory acidosis. Creatinine was elevated but this is a chronic issue. No electrolyte abnormality in need of emergent correction. Lactic acid level was not elevated making sepsis less likely. No concerning liver enzyme elevation. TSH was elevated however, the T4 was normal. BNP was elevated consistent with fluid overload. ECG showed a sinus rhythm, no obvious ischemia. Cardiac enzyme testing x 1 was slightly elevated, this troponin elevation could be secondary to cardiac injury or mismatch from her dyspnea. Respiratory bio fire was negative. Chest x-ray shows some chronic change, no obvious focal infiltrate. On exam, patient did not appear in significant distress. She was not febrile. Patient was given oral oxycodone and oral Tylenol. She was due for both of these medications. She received IV Lasix, 60 mg. She was given a DuoNeb. The patient presents with worsening difficulty for a few days. They have been having a harder time keeping her oxygen saturations adequate. She vomited last evening. She is very likely fluid overloaded and I do believe requires a hospital stay, IV diuresis and monitoring. I spoke with the patient, I spoke with case management, the on-call hospitalist was consulted. Prior/Outside records/notes reviewed: Previous discharge summary note from 03/13/2025 describing her presentation, hospital course and plan at discharge. ECG per my interpretation: Indication was shortness of breath. The ECG shows a sinus rhythm with a first-degree AV block. The rate was 93. There was a right bundle branch block. No acute ST elevation, no PVCs. QTc was 465. Continuous Cardiac Monitoring per my interpretation: An order was placed for continuous cardiac monitoring. The monitor shows a rate of 94 with normal sinus rhythm. Imaging/x-ray results per my interpretation: Chest x-ray shows cardiomegaly and chronic parenchymal change. No obvious focal pneumonia. The film looks similar to previous films. Chronic Medical/Social conditions affecting care: Obesity, tracheostomy. Care/Management discussed with: Case management, the on-call hospitalist. Level of care consideration(s): After review of the information above and other included data: --I believe the patient requires escalation of care to admission DISPOSITION: Admission Past Med/Surg History Problem List Leukocytosis (Acute) Vomiting (Acute) Elevated brain natriuretic peptide (BNP) level (Acute) Elevated troponin (Acute) CHF (congestive heart failure) (Acute) Respiratory acidosis (Acute) Acute on chronic heart failure with preserved ejection fraction Acute respiratory acidosis Obesity hypoventilation syndrome (Acute) Tracheostomy in place (Acute) Ambulatory dysfunction (Acute) Acute respiratory failure with hypoxia (Acute) Skin ulcer of groin, limited to breakdown of skin Morbid obesity with BMI of 60.0-69.9, adult Insulin-requiring or dependent type II diabetes mellitus Hypothyroidism Physical deconditioning Chronic kidney disease, stage 3 Dyslipidemia, goal LDL below 70 HTN, goal below 130/80 Chronic pain Iron deficiency Chronic hypoxic respiratory failure Diabetic nephropathy Seborrhea Back pain Open wound Lesion of left bill moore's [place]ough kidney Hypersomnia with sleep apnea (Acute) Memory loss (Acute) MRSA (methicillin resistant staph aureus) culture positive (Chronic) "sputum 11/2015" History of hysterectomy (Chronic) Medical History New onset atrial flutter Parainfluenza infection Common migraine without aura Congestive heart failure Diabetic retinopathy associated with type 2 diabetes mellitus Hypoglycemia Chronic kidney disease, stage 3b C. difficile diarrhea Acute gout Wound, breast Type 2 diabetes mellitus Right bundle branch block Presence of tracheostomy Morbid obesity Weakness Cor pulmonale CHF (congestive heart failure) Chronic diastolic heart failure cor pulmonale Chronic obstructive pulmonary disease Generalized weakness Fracture of distal end of right femur Hypothyroidism (acquired) Ureterolithiasis Vitamin D deficiency Adjustment disorder with depressed mood Tinea unguium GERD (gastroesophageal reflux disease) Anxiety Coronary artery disease RASHAAD (obstructive sleep apnea) Sepsis Surgical History History of tonsillectomy and adenoidectomy History of cholecystectomy History of appendectomy Family History Mother Coronary heart disease COPD (chronic obstructive pulmonary disease) Father Suicide Hung himself. Pt found him. Unknown Lung cancer Social History Smoking Status: Never smoker Tobacco Type: Cigarettes Second Hand Exposure: No; Do You Dip or Chew Tobacco: No; Hx Alcohol Use: No Hx Substance Use: No Preferred Language: Portuguese Communication Ability: Effective Visual Impairment: Limited Hearing Ability: Normal Director Of Market Analysis Required: No Beliefs That Will Affect Care: None marital status: Current Living Situation: Parent Current Living Situation Comment: lives at home with daughter current occupational status: disabled How many Children do You have: 1 Feels Safe at Home: Yes Diet: regular Diet Comment: Drinks 1 Boost drink supplement in the morning caffeine: Yes (1 coffee daily) Physical Activity Frequency: Does not Exercise Seatbelt Use: always Do you think of yourself as: straight/heterosexual Gender Identity: Female Assistive Devices: CPAP, Lift Chair, Mechanical Lift, Oxygen - Continuous, Scooter/Electric Scooter and Other Allergies Allergies Allergy/AdvReac Type Severity Reaction Status Date / Time animal dander Allergy Intermediate Sneezing, Unverified 03/25/25 15:27 itchy watery eyes and Difficulty Breathing Penicillins Allergy Intermediate Hives Verified 03/25/25 15:27 tree and shrub pollen Allergy Intermediate Sneezing, Unverified 03/25/25 15:27 itchy watery eyes and Difficulty Breathing amitriptyline Allergy Unknown CAN'T Verified 03/25/25 15:27 REMEMBER doxycycline Allergy Unknown CAN'T Verified 03/25/25 15:27 REMEMBER guaifenesin Allergy Unknown CAN'T Verified 03/25/25 15:27 REMEMBER metformin Allergy Unknown CAN'T Verified 03/25/25 15:27 REMEMBER phenylephrine Allergy Unknown CAN'T Verified 03/25/25 15:27 REMEMBER pseudoephedrine Allergy Unknown CAN'T Verified 03/25/25 15:27 REMEMBER tetracycline Allergy Unknown CAN'T Verified 03/25/25 15:27 REMEMBER venlafaxine [From Effexor] Allergy Unknown CAN'T Verified 03/25/25 15:27 REMEMBER gabapentin AdvReac Intermediate BECOMES Verified 03/25/25 15:27 AGGRESSIVE Home Meds Home Medications Medication Instructions Recorded Confirmed diclofenac sodium 1 % topical gel 4 g EXT QID PRN Pain 01/15/24 03/25/25 (Voltaren Arthritis Pain) naloxone 4 mg/actuation nasal 4 mg intranasal DIRECTED PRN 01/15/24 03/25/25 spray (Narcan) OVERDOSE bupropion HCl 100 mg tablet,12 hr See Rx Instructions .Route .COMPLEX 02/03/24 03/25/25 sustained-release potassium chloride 20 mEq 20 meq PO BID 02/03/24 03/25/25 tablet,extended release isosorbide mononitrate 60 mg 60 mg PO QAM 06/13/24 03/25/25 tablet,extended release 24 hr levothyroxine 200 mcg tablet 200 mcg PO QAM 06/13/24 03/25/25 levothyroxine 25 mcg tablet 25 mcg PO QAM 06/13/24 03/25/25 metoprolol tartrate 25 mg tablet 25 mg PO BID 06/13/24 03/25/25 topiramate 100 mg tablet See Rx Instructions .Route .COMPLEX 06/13/24 03/25/25 oxycodone 10 mg tablet 10 mg PO BID PRN Pain 09/14/24 03/25/25 empagliflozin 25 mg tablet 25 mg PO DAILY 03/25/25 03/25/25 (Jardiance) ipratropium 20 mcg-albuterol 100 1 puff inhalation Q4H shortness of 03/25/25 03/25/25 mcg/actuation mist for inhalation breath ([place] [facility]) Previous Rx's Medication Instructions Recorded aspirin 81 mg tablet,delayed 81 mg PO QAM #30 tabs 04/06/23 release (Robert Low Dose Aspirin) atorvastatin 40 mg tablet 40 mg PO QPM #30 tabs 04/06/23 magnesium oxide 400 mg PO QAM #30 tabs 04/06/23 multivitamin 1 tab PO QAM #30 tabs 04/06/23 nitroglycerin 0.4 mg sublingual 0.4 mg sublingual DIRECTED PRN 04/06/23 tablet Chest Pain #25 tabs pantoprazole 40 mg tablet,delayed 40 mg PO DAILYBB #30 tabs 04/06/23 release sertraline 50 mg tablet 50 mg PO QAM #30 tabs 04/06/23 spironolactone 25 mg tablet 25 mg PO QAM #30 tabs 04/06/23 blood-glucose meter (OneTouch #1 ea 07/21/23 Ultra2 Meter) pen needle, diabetic 32 gauge x #150 ea 08/26/23" (BD Kaitlin 2nd Gen Pen Needle) pen needle, diabetic 32 gauge x #50 ea 08/26/23" (BD Kaitlin 2nd Gen Pen Needle) ipratropium 0.5 mg-albuterol 3 mg 3 ml inhalation Q4H PRN COUGHING, 11/25/23 (2.5 mg base)/3 mL nebulization WHEEZING, SHORTNESS OF BREATH #180 soln mL budesonide 0.5 mg/2 mL suspension 0.5 mg (2 mL) NEB BIDR #120 mL 03/02/24 for nebulization diclofenac sodium 75 mg 75 mg PO BID #60 tabs 03/02/24 tablet,delayed release famotidine 20 mg tablet 20 mg PO DAILY PRN heartburn #30 03/02/24 tabs insulin aspart U-100 100 unit/mL See Rx Instructions subcut DAILY 08/21/24 subcutaneous solution (Novolog #100 mL U-100 Insulin aspart) blood sugar diagnostic (OneTouch #400 ea 08/27/24 Ultra Test strips) nebulizers #1 ea 01/17/25 torsemide 10 mg tablet 30 mg (3 x 10 mg) PO QAM #90 tabs 03/13/25 Results & Data (ED) Vital Signs Vital Signs - 24 hr 03/25/25 11:35 03/25/25 11:55 03/25/25 12:07 Temperature 36.9 C Temperature Source Oral Pulse Rate 94 H 98 H Pulse Rate [Right Finger] Respiratory Rate 23 Respiratory Effort / Characteristics Labored Respiratory Depth Normal Blood Pressure 105/70 Blood Pressure [Right Arm] Blood Pressure Mean 81 Blood Pressure Mean [Right Arm] Pulse Oximetry 92 Oxygen Delivery Method Trach Collar Trach Collar Oxygen Flow Rate 7 7 Fraction of Inspired Oxygen 30 30 SaO2/FiO2 Ratio 306 Sepsis Recent Fever Within 48 Hours No Sepsis New/Unexplained Change in Mental Status No Sepsis Action Taken by Nursing No Action Required 03/25/25 12:07 03/25/25 12:39 Temperature Temperature Source Pulse Rate Pulse Rate [Right Finger] 93 H 86 Respiratory Rate 21 18 Respiratory Effort / Characteristics Labored Non-Labored Spontaneous Respiratory Depth Normal Blood Pressure Blood Pressure [Right Arm] 105/70 Blood Pressure Mean Blood Pressure Mean [Right Arm] 81 Pulse Oximetry 91 94 Oxygen Delivery Method Trach Collar Trach Collar Oxygen Flow Rate 7 Fraction of Inspired Oxygen 30 30 SaO2/FiO2 Ratio 303 Sepsis Recent Fever Within 48 Hours Sepsis New/Unexplained Change in Mental Status Sepsis Action Taken by Intermediate Medications Current Medication List: was personally reviewed by me Laboratory Data Attestation: I reviewed the patient's lab results. 03/25/25 11:52 03/25/25 11:52 Lab Results 03/25/25 03/25/25 03/25/25 Range/Units 11:52 12:34 12:37 WBC 12.73 H (4.8-10.8) K/ul RBC 4.57 (4.20-5.40) M/uL Hgb 12.5 (12.0-16.0) g/dl Hct 43.1 (37.0-47.0) % MCV 94.3 (80.0-100.0) fL MCH 27.4 (25.0-34.0) pg MCHC 29.0 L (32.0-36.0) g/dL RDW Std Deviation 58.1 H (36.4-46.3) fL RDW Coeff of Amee 16.8 H (11.5-14.5) % Plt Count 294 (130-400) K/uL MPV 9.5 (9.4-12.4) fL Immature Gran % (Auto) 0.9 % Neut % (Auto) 80.4 % Lymph % (Auto) 11.6 % Morrow % (Auto) 5.9 % Eos % (Auto) 0.9 % Baso % (Auto) 0.3 % Neut # (Auto) 10.23 H (1.40-6.50) K/uL Lymph # (Auto) 1.48 (1.20-3.40) K/uL Morrow # (Auto) 0.75 H (0.11-0.59) K/uL Eos # (Auto) 0.11 (0.00-0.50) K/uL Baso # (Auto) 0.04 (0.00-0.20) K/uL Immature Gran # (Auto) 0.12 (0.01-0.20) K/uL Absolute Nucleated RBC 0.02 (0.00-0.12) K/uL Nucleated RBC % (auto) 0.2 % PT 11.1 (9.0-12.0) Seconds INR 1.0 (0.9-1.1) APTT 26 (21-31) Seconds PTT Ratio 1.0 VBG pH 7.26 L (7.36-7.41) VBG pCO2 71 H (38-50) mmHg VBG pO2 36 mmHg VBG HCO3 32 mmol/L VBG O2 Saturation 61.3 % VBG Base Excess 2.7 mEq/L Sodium 140 (136-145) mmol/L Potassium 4.5 (3.5-5.1) mmol/L Chloride 104 (98-107) mmol/L Carbon Dioxide 33 H (21-32) mmol/L Anion Gap 3 (3-11) BUN 31 H (6-23) mg/dl Creatinine 1.51 H (0.6-1.2) mg/dl Est Cr Clr Drug Dosing 55.1 ml/min eGFR 37.42 BUN/Creatinine Ratio 20.5 H (10-20) Glucose 160 H (70-99(Fasting)) mg/dl Lactate (0.4-2.0) mmol/L Calcium 9.0 (8.6-10.3) mg/dl Magnesium 2.1 (1.7-2.4) mg/dl Total Bilirubin 0.4 (0.2-1.0) mg/dl AST 17 (13-39) U/L ALT 17 (7-52) U/L Alkaline Phosphatase 88 (34-104) U/L Troponin I High Sens 15.6 H (0-14) pg/ml B-Natriuretic Peptide 171 H (0-100) pg/ml Total Protein 7.3 (6.0-8.3) gm/dl Albumin 3.5 (3.4-5.0) gm/dl Globulin 3.8 (2.5-4.0) gm/dl Albumin/Globulin Ratio 0.9 (0.9-2) TSH 7.653 H (0.300-4.500) uIu/ml Free T4 0.74 (0.61-1.60) ng/dl Adenovirus (PCR) Not Detected (NotDetected) B. pertussis DNA (PCR) Not Detected (NotDetected) B.parapertussis DNA PCR Not Detected (NotDetected) C. pneumoniae DNA (PCR) Not Detected (NotDetected) Coronavirus OC43 (PCR) Not Detected (NotDetected) Coronavirus HKU1 (PCR) Not Detected (NotDetected) Coronavirus 229E (PCR) Not Detected (NotDetected) SARS-CoV-2 (PCR) Not Detected (NotDetected) Coronavirus NL63 (PCR) Not Detected (NotDetected) Human Metapneumovir PCR Not Detected (NotDetected) Influenza Type A (PCR) Not Detected (NotDetected) Influenza Type B (PCR) Not Detected (NotDetected) M. pneumoniae (PCR) Not Detected (NotDetected) Parainfluenza 1 (PCR) Not Detected (NotDetected) Parainfluenza 2 (PCR) Not Detected (NotDetected) Parainfluenza 3 (PCR) Not Detected (NotDetected) Parainfluenza 4 (PCR) Not Detected (NotDetected) RSV (PCR) Not Detected (NotDetected) Entero/Rhino (PCR) Not Detected (NotDetected) 03/25/25 Range/Units 13:02 WBC (4.8-10.8) K/ul RBC (4.20-5.40) M/uL Hgb (12.0-16.0) g/dl Hct (37.0-47.0) % MCV (80.0-100.0) fL MCH (25.0-34.0) pg MCHC (32.0-36.0) g/dL RDW Std Deviation (36.4-46.3) fL RDW Coeff of Amee (11.5-14.5) % Plt Count (130-400) K/uL MPV (9.4-12.4) fL Immature Gran % (Auto) % Neut % (Auto) % Lymph % (Auto) % Morrow % (Auto) % Eos % (Auto) % Baso % (Auto) % Neut # (Auto) (1.40-6.50) K/uL Lymph # (Auto) (1.20-3.40) K/uL Morrow # (Auto) (0.11-0.59) K/uL Eos # (Auto) (0.00-0.50) K/uL Baso # (Auto) (0.00-0.20) K/uL Immature Gran # (Auto) (0.01-0.20) K/uL Absolute Nucleated RBC (0.00-0.12) K/uL Nucleated RBC % (auto) % PT (9.0-12.0) Seconds INR (0.9-1.1) APTT (21-31) Seconds PTT Ratio VBG pH (7.36-7.41) VBG pCO2 (38-50) mmHg VBG pO2 mmHg VBG HCO3 mmol/L VBG O2 Saturation % VBG Base Excess mEq/L Sodium (136-145) mmol/L Potassium (3.5-5.1) mmol/L Chloride (98-107) mmol/L Carbon Dioxide (21-32) mmol/L Anion Gap (3-11) BUN (6-23) mg/dl Creatinine (0.6-1.2) mg/dl Est Cr Clr Drug Dosing ml/min eGFR BUN/Creatinine Ratio (10-20) Glucose (70-99(Fasting)) mg/dl Lactate 1.1 (0.4-2.0) mmol/L Calcium (8.6-10.3) mg/dl Magnesium (1.7-2.4) mg/dl Total Bilirubin (0.2-1.0) mg/dl AST (13-39) U/L ALT (7-52) U/L Alkaline Phosphatase (34-104) U/L Troponin I High Sens (0-14) pg/ml B-Natriuretic Peptide (0-100) pg/ml Total Protein (6.0-8.3) gm/dl Albumin (3.4-5.0) gm/dl Globulin (2.5-4.0) gm/dl Albumin/Globulin Ratio (0.9-2) TSH (0.300-4.500) uIu/ml Free T4 (0.61-1.60) ng/dl Adenovirus (PCR) (NotDetected) B. pertussis DNA (PCR) (NotDetected) B.parapertussis DNA PCR (NotDetected) C. pneumoniae DNA (PCR) (NotDetected) Coronavirus OC43 (PCR) (NotDetected) Coronavirus HKU1 (PCR) (NotDetected) Coronavirus 229E (PCR) (NotDetected) SARS-CoV-2 (PCR) (NotDetected) Coronavirus NL63 (PCR) (NotDetected) Human Metapneumovir PCR (NotDetected) Influenza Type A (PCR) (NotDetected) Influenza Type B (PCR) (NotDetected) M. pneumoniae (PCR) (NotDetected) Parainfluenza 1 (PCR) (NotDetected) Parainfluenza 2 (PCR) (NotDetected) Parainfluenza 3 (PCR) (NotDetected) Parainfluenza 4 (PCR) (NotDetected) RSV (PCR) (NotDetected) Entero/Rhino (PCR) (NotDetected) Administered Medications Acetaminophen (Acetaminophen 325 Mg Tab) 650 mg PO Q4H PRN PRN Reason: Pain Stop: 04/24/25 17:39 Last Admin: 03/25/25 18:04 Dose: 650 mg Documented By: LUISAK Enoxaparin Sodium (Enoxaparin Inj 40 Mg/0.4 Ml Syr) 40 mg SQ Q24H ASIYA Stop: 04/24/25 15:59 Last Admin: 03/25/25 16:38 Dose: 40 mg Documented By: CTK Discontinued Medications Acetaminophen (Acetaminophen 500 Mg Tab) 1,000 mg PO NOW STA Stop: 03/25/25 12:21 Last Admin: 03/25/25 12:27 Dose: 1,000 mg Documented By: CTK Albuterol (Albut/Ipratrop 3mg/0.5mg Neb 3 Ml Vial) 3 ml NEB NOW STA; Protocol Stop: 03/25/25 12:21 Last Admin: 03/25/25 12:30 Dose: 3 ml Documented By: LUISAK Furosemide (Furosemide 40 Mg/4 Ml Vial) 60 mg IV ONE ONE Stop: 03/25/25 13:02 Last Admin: 03/25/25 13:12 Dose: 60 mg Documented By: LUISAK Insulin Aspart (Insulin, Rapid-Acting Pump) 0 each SC ACHS ASIYA; Protocol Stop: 04/24/25 16:29 Last Admin: 03/25/25 17:32 Dose: Not Given Documented By: LUISAK Oxycodone HCl (Oxycodone Hcl Ir 5 Mg Tab (Immediate Release)) 5 mg PO NOW STA Stop: 03/25/25 12:21 Last Admin: 03/25/25 12:26 Dose: 5 mg Documented By: CTK Imaging Data Radiologist's Impression: Chest X-Ray 03/25/25 12:03 XR chest 1V portable CLINICAL HISTORY: weakness COMPARISON STUDY: 03/07/2025 FINDINGS: Tracheostomy tube tip is at the thoracic inlet. There is stable prominent cardiomegaly with mild pulmonary vascular congestion. Hazy opacity overlying the lung bases is grossly stable. No other consolidation or pleural effusion. No pneumothorax. IMPRESSION: Stable hazy opacity overlying the lung bases may represent artifact from overlying soft tissue. If there is strong clinical suspicion for pneumonia, follow-up is recommended. ACT 112: Negative or not required by law. Electronically signed by: Daryl Mccullough M.D. 03/25/2025 12:37 PM Discharge Plan Visit Data Chief Complaint: Shortness of Breath/Dyspnea Stated Complaint: ILLNESS, SOB, CHEST PAIN ED Provider: Jasper Verma Discharge Problem: Respiratory acidosis, CHF (congestive heart failure), Elevated troponin, Elevated brain natriuretic peptide (BNP) level, Vomiting, Leukocytosis Patient Disposition: Admitted As Inpatient Condition: Fair Discharge Instructions Interventions: ED Discharge Assessment Last Done: 03/25/25 15:59 Discharge Problem: CHF (congestive heart failure) Qualifiers: Heart failure type: unspecified Heart failure chronicity: acute on chronic Q ualified Code(s): I50.9 - Heart failure, unspecified Vomiting Qualifiers: Vomiting type: unspecified Nausea presence: unspecified Qualified Code(s): R 11.10 - Vomiting, unspecified Leukocytosis Qualifiers: Leukocytosis type: unspecified Qualified Code(s): D72.829 - Elevated white blood cell count, unspecified
[2025-03-25] MEDS: ALBUT/IPRATROP 3MG/0.5MG NEB 3 ML VIAL NEB STA (12:30)
[2025-03-25 12:32] LABS: Basophils # (auto) 0.04 K/uL (0.00-0.20); Basophils % (auto) 0.3 %; Eosinophils # (auto) 0.11 K/uL (0.00-0.50); Eosinophils % (auto) 0.9 %; Hematocrit (blood only) 43.1 % (37.0-47.0); Hemoglobin 12.5 g/dl (12.0-16.0); Immature Granulocytes # (auto) 0.12 K/uL (0.01-0.20); Immature Granulocytes % (auto) 0.9 %; Lymphocytes # (auto) 1.48 K/uL (1.20-3.40); Lymphocytes % (auto) 11.6 %; Mean Corpuscular Hemoglobin 27.4 pg (25.0-34.0); Mean Corpuscular Volume 94.3 fL (80.0-100.0); Mean Platelet Volume 9.5 fL (9.4-12.4); Monocytes # (auto) 0.75 K/uL (0.11-0.59); Monocytes % (auto) 5.9 %; Neutrophils # (auto) 10.23 K/uL (1.40-6.50); Neutrophils % (auto) 80.4 %; Nucleated RBC # (auto) 0.02 K/uL (0.00-0.12); Nucleated RBC % (auto) 0.2 %; Platelet Count 294 K/uL (130-400); RDW Coefficient of Variation 16.8 % (11.5-14.5); RDW Standard Deviation 58.1 fL (36.4-46.3); Red Blood Count 4.57 M/uL (4.20-5.40); White Blood Count 12.73 K/ul (4.8-10.8)
--- NOTE | 2025-03-25 12:38 | XRay Report ---
XR chest 1V portable CLINICAL HISTORY: weakness COMPARISON STUDY: 03/07/2025 FINDINGS: Tracheostomy tube tip is at the thoracic inlet. There is stable prominent cardiomegaly with mild pulmonary vascular congestion. Hazy opacity overlying the lung bases is grossly stable. No othe r consolidation or pleural effusion. No pneumothorax. IMPRESSION: Stable hazy opacity overlying the lung bases may represent artifact from overlying soft tissue. If there is strong clinical suspicion for pneumonia, follow-up is recommended. ACT 112: Negative or not required by law. Electronically signed by: Daryl Mccullough M.D. 03/25/2025 12:37 PM
[2025-03-25 12:55] LABS: Albumin Globulin Ratio 0.9 (0.9-2); Albumin Level 3.5 gm/dl (3.4-5.0); BUN Creatinine Ratio 20.5 (10-20); Bilirubin,Total 0.4 mg/dl (0.2-1.0); Creatinine Clr Calc Pharmacy 55.1 ml/min; Globulin 3.8 gm/dl (2.5-4.0); Magnesium 2.1 mg/dl (1.7-2.4); Potassium 4.5 mmol/L (3.5-5.1); Total Protein 7.3 gm/dl (6.0-8.3)
[2025-03-25 12:57] LABS: Base Excess VBG 2.7 mEq/L; HCO3 VBG 32 mmol/L; Oxygen Saturation VBG 61.3 %; PCO2 VBG 71 mmHg (38-50); PO2 VBG 36 mmHg; pH VBG 7.26 (7.36-7.41)
[2025-03-25 13:04] LABS: Troponin I High Sensitivity 15.6 pg/ml (0-14)
[2025-03-25 13:06] LABS: Partial Thromboplastin Time 26 Seconds (21-31); Prothrombin Time 11.1 Seconds (9.0-12.0)
[2025-03-25 13:10] LABS: Thyroid Stimulating Hormone 7.653 uIu/ml (0.300-4.500)
[2025-03-25] MEDS: FUROSEMIDE 40 MG/4 ML VIAL IV ONE (13:12)
[2025-03-25 13:46] LABS: T4 Free Thyroxine 0.74 ng/dl (0.61-1.60)
[2025-03-25 13:49] LABS: Adenovirus PCR Not Detected (NotDetected); Bordetella parapertussis PCR Not Detected (NotDetected); Bordetella pertussis PCR Not Detected (NotDetected); Chlamydia pneumoniae PCR Not Detected (NotDetected); Coronavirus 229E PCR Not Detected (NotDetected); Coronavirus CoV-2 (COVID19)PCR Not Detected (NotDetected); Coronavirus HKU1 PCR Not Detected (NotDetected); Coronavirus NL63 PCR Not Detected (NotDetected); Coronavirus OC43PCR Not Detected (NotDetected); Human Metapneumovirus PCR Not Detected (NotDetected); Influenza A PCR Not Detected (NotDetected); Influenza B PCR Not Detected (NotDetected); Mycoplasma pneumoniae PCR Not Detected (NotDetected); Parainfluenza Virus 1 PCR Not Detected (NotDetected); Parainfluenza Virus 2 PCR Not Detected (NotDetected); Parainfluenza Virus 3 PCR Not Detected (NotDetected); Parainfluenza Virus 4 PCR Not Detected (NotDetected); Respiratory Syncytial VirusPCR Not Detected (NotDetected); Rhinovirus/Enterovirus PCR Not Detected (NotDetected)
--- NOTE | 2025-03-25 14:02 | History & Physical Report ---
Date of Service March 25, 2025 Assessment & Plan (1) Acute on chronic heart failure with preserved ejection fraction: (2) Acute respiratory acidosis: (3) Obesity hypoventilation syndrome: (4) Tracheostomy in place: Plan #Dyspnea - appears most consistent with acute on chronic diastolic CHF (acute on chronic HFpEF)although hard to rule out a viral respiratory infection at the same time. Serial exams, serial labs, follow clinically, manage as CHF at this pointno clear evidence of bacterial infection/no clear evidence of need for antibiotics. #Acute on chronic HFpEFseems to be the most likely diagnosis at play. Jennyedwas just given 60 mg of Lasix IV in the ER. Follow for response, I have proactively ordered 40 mg tomorrowalthough if she continues to show a clinical course consistent with volume overload, we will likely need to be more aggressive (something on the order of 4060 twice daily instead of daily). Follow serial exams, serial labs. Try to educate on sodium restriction. #Acute on chronic hypercapnic respiratory failureOHS mechanismprobably worse simply because of the increased work of breathing from above. She does not sound wheezy, I doubt there is a bronchitis at play, but serial exams. Fortunately no evidence of pneumonia. #Tracheostomy in placedue to OHS. Fortunately the site overall appears to be clean without clear infection. Offered apologies that her trach was not cleaned prior to previous discharge, but fortunately it also appears there were no significant consequences. #Type 2 diabetes on insulincontinue Jardiance, continue insulin pump, check fingersticks and follow #DVT prophylaxisLovenox #CKD stage IIIfollow creatinine with diuresis History of Present Illness Chief Complaint: Shortness of breath Primary Care Provider: Ofe Mcgee MD patient is a very pleasant 69-year-old female well-known to me. She notes that she was feeling well until maybe in the last 2 3 days once she started feeling more short of breath. During that time she was feeling more short of breath, no fevers chills or sweats, thick predominantly white sputum. Her caregiver feels that she probably has fluid overload. Caregiver also wondered about infection because her tracheostomy had not been changed and had a degree of exudative material on itthey changed the trach and the site has since remained more clean. Hard to get much of a diet recall from the patient, as she mostly relates that she has not had an appetite the last 2 days or so once she started feeling more short of breathbut it is hard to get a recall prior to that. Review of systems otherwise negative except for as above. Allergies Allergy/AdvReac Type Severity Reaction Status Date / Time animal dander Allergy Intermediate Sneezing, Unverified 03/20/25 10:59 itchy watery eyes and Difficulty Breathing Penicillins Allergy Intermediate Hives Verified 03/20/25 10:59 tree and shrub pollen Allergy Intermediate Sneezing, Unverified 03/20/25 10:59 itchy watery eyes and Difficulty Breathing amitriptyline Allergy Unknown CAN'T Verified 03/20/25 10:59 REMEMBER doxycycline Allergy Unknown CAN'T Verified 03/20/25 10:59 REMEMBER guaifenesin Allergy Unknown CAN'T Verified 03/20/25 10:59 REMEMBER metformin Allergy Unknown CAN'T Verified 03/20/25 10:59 REMEMBER phenylephrine Allergy Unknown CAN'T Verified 03/20/25 10:59 REMEMBER pseudoephedrine Allergy Unknown CAN'T Verified 03/20/25 10:59 REMEMBER tetracycline Allergy Unknown CAN'T Verified 03/20/25 10:59 REMEMBER venlafaxine [From Effexor] Allergy Unknown CAN'T Verified 03/20/25 10:59 REMEMBER gabapentin AdvReac Intermediate BECOMES Verified 03/20/25 10:59 AGGRESSIVE Home Medications Medication Instructions Recorded Confirmed Type aspirin 81 mg tablet,delayed 81 mg PO QAM #30 tabs 04/06/23 03/20/25 Rx release (Robert Low Dose Aspirin) atorvastatin 40 mg tablet 40 mg PO QPM #30 tabs 04/06/23 03/20/25 Rx folic acid 1 mg tablet 1 mg PO QAM #30 tabs 04/06/23 03/20/25 Rx magnesium oxide 400 mg PO QAM #30 tabs 04/06/23 03/20/25 Rx multivitamin 1 tab PO QAM #30 tabs 04/06/23 03/20/25 Rx nitroglycerin 0.4 mg sublingual 0.4 mg sublingual DIRECTED PRN 04/06/23 03/20/25 Rx tablet Chest Pain #25 tabs pantoprazole 40 mg tablet,delayed 40 mg PO DAILYBB #30 tabs 04/06/23 03/20/25 Rx release sertraline 50 mg tablet 50 mg PO QAM #30 tabs 04/06/23 03/20/25 Rx spironolactone 25 mg tablet 25 mg PO QAM #30 tabs 04/06/23 03/20/25 Rx blood-glucose meter (OneTouch #1 ea 07/21/23 03/20/25 Rx Ultra2 Meter) pen needle, diabetic 32 gauge x #150 ea 08/26/23 03/20/25 Rx 5/32" (BD Kaitlin 2nd Gen Pen Needle) pen needle, diabetic 32 gauge x #50 ea 08/26/23 03/20/25 Rx 5/32" (BD Kaitlin 2nd Gen Pen Needle) ipratropium 0.5 mg-albuterol 3 mg 3 ml inhalation Q4H PRN COUGHING, 11/25/23 03/20/25 Rx (2.5 mg base)/3 mL nebulization WHEEZING, SHORTNESS OF BREATH #180 soln mL diclofenac sodium 1 % topical gel 4 g EXT QID PRN Pain 01/15/24 03/20/25 History (Voltaren Arthritis Pain) naloxone 4 mg/actuation nasal 4 mg intranasal DIRECTED PRN 01/15/24 03/20/25 History spray (Narcan) OVERDOSE bupropion HCl 100 mg tablet,12 hr 100 mg PO UD 02/03/24 03/20/25 History sustained-release potassium chloride 20 mEq 20 meq PO BID 02/03/24 03/20/25 History tablet,extended release budesonide 0.5 mg/2 mL suspension 0.5 mg (2 mL) NEB BIDR #120 mL 03/02/24 03/20/25 Rx for nebulization diclofenac sodium 75 mg 75 mg PO BID #60 tabs 03/02/24 03/20/25 Rx tablet,delayed release famotidine 20 mg tablet 20 mg PO DAILY PRN heartburn #30 03/02/24 03/20/25 Rx tabs ipratropium 20 mcg-albuterol 100 1 puff inhalation QID PRN 03/02/24 03/20/25 Rx mcg/actuation mist for inhalation shortness of breath #4 grams (Combivent Respimat) isosorbide mononitrate 60 mg 60 mg PO QAM 06/13/24 03/20/25 History tablet,extended release 24 hr levothyroxine 200 mcg tablet 200 mcg PO UD 06/13/24 03/20/25 History levothyroxine 25 mcg tablet 25 mcg PO UD 06/13/24 03/20/25 History metoprolol tartrate 25 mg tablet 25 mg PO BID 06/13/24 03/20/25 History topiramate 100 mg tablet 100 mg PO UD 06/13/24 03/20/25 History insulin aspart U-100 100 unit/mL See Rx Instructions subcut DAILY 08/21/24 03/20/25 Rx subcutaneous solution (Novolog #100 mL U-100 Insulin aspart) blood sugar diagnostic (OneTouch #400 ea 08/27/24 03/20/25 Rx Ultra Test strips) empagliflozin 10 mg tablet 10 mg PO UD 09/14/24 03/20/25 History (Jardiance) oxycodone 10 mg tablet 10 mg PO DIRECTED PRN Pain 09/14/24 03/20/25 History nebulizers #1 ea 01/17/25 03/20/25 Rx torsemide 10 mg tablet 30 mg (3 x 10 mg) PO QAM #90 tabs 03/13/25 03/20/25 Rx Past Med/Surg History Problem List Acute on chronic heart failure with preserved ejection fraction Acute respiratory acidosis Obesity hypoventilation syndrome (Acute) Tracheostomy in place (Acute) Ambulatory dysfunction (Acute) Acute respiratory failure with hypoxia (Acute) Skin ulcer of groin, limited to breakdown of skin Morbid obesity with BMI of 60.0-69.9, adult Insulin-requiring or dependent type II diabetes mellitus Hypothyroidism Physical deconditioning Chronic kidney disease, stage 3 Dyslipidemia, goal LDL below 70 HTN, goal below 130/80 Chronic pain Iron deficiency Chronic hypoxic respiratory failure Diabetic nephropathy Seborrhea Back pain Open wound Lesion of left [place] kidney Hypersomnia with sleep apnea (Acute) Memory loss (Acute) MRSA (methicillin resistant staph aureus) culture positive (Chronic) "sputum 11/2015" History of hysterectomy (Chronic) Medical History New onset atrial flutter Parainfluenza infection Common migraine without aura Congestive heart failure Diabetic retinopathy associated with type 2 diabetes mellitus Hypoglycemia Chronic kidney disease, stage 3b C. difficile diarrhea Acute gout Wound, breast Type 2 diabetes mellitus Right bundle branch block Presence of tracheostomy Morbid obesity Weakness Cor pulmonale CHF (congestive heart failure) Chronic diastolic heart failure cor pulmonale Chronic obstructive pulmonary disease Generalized weakness Fracture of distal end of right femur Hypothyroidism (acquired) Ureterolithiasis Vitamin D deficiency Adjustment disorder with depressed mood Tinea unguium GERD (gastroesophageal reflux disease) Anxiety Coronary artery disease RASHAAD (obstructive sleep apnea) Sepsis Surgical History History of tonsillectomy and adenoidectomy History of cholecystectomy History of appendectomy Family History Mother Coronary heart disease COPD (chronic obstructive pulmonary disease) Father Suicide Hung himself. Pt found him. Unknown Lung cancer Social History Smoking Status: Never smoker Tobacco Type: Cigarettes Second Hand Exposure: No; Do You Dip or Chew Tobacco: No; Hx Alcohol Use: No Hx Substance Use: No Preferred Language: Cambodian Communication Ability: Effective Visual Impairment: Limited Hearing Ability: Normal Teacher Theater Arts Required: No Beliefs That Will Affect Care: None marital status: Current Living Situation: Parent Current Living Situation Comment: lives at home with daughter current occupational status: disabled How many Children do You have: 1 Feels Safe at Home: Yes Diet: regular Diet Comment: Drinks 1 Boost drink supplement in the morning caffeine: Yes (1 coffee daily) Physical Activity Frequency: Does not Exercise Seatbelt Use: always Do you think of yourself as: straight/heterosexual Gender Identity: Female Assistive Devices: CPAP, Lift Chair, Mechanical Lift, Oxygen - Continuous, Scooter/Electric Scooter and Other Review of Systems Review of Systems: All systems reviewed & are unremarkable except as noted in HPI & below Physical Exam Physical Exam: In general she is awake alert oriented pleasant mildly dyspneic. HEENT normocephalic atraumatic mucous membranes moist. Trach site with mild thin exudate no erythema no tracking erythema nontender, trach itself seems patent with good airflow. Cardio is distant. Lungs show bibasilar rales and diminished air entry, somewhat difficult exam. Maybe mild accessory muscle use mild respiratory distress. Skin without rashes pallor or icterus. Neuro without focal deficits. She is immobile as far as ability to ambulatethis is chronic. Chronic diffuse changes with consistency of venous stasis. Labs and diagnostics noted, chest x-ray noted. Results & Data Results & Data Vital Signs (Past 12 Hours) Vital Signs Temp Pulse Pulse Resp BP BP Pulse Ox 03/25/25 12:39 86 18 94 03/25/25 12:07 93 H 21 105/70 91 03/25/25 12:07 03/25/25 11:55 98 H 03/25/25 11:35 98.4 F 94 H 23 105/70 92 O2 Del Method O2 Flow Rate FiO2 03/25/25 12:39 Trach Collar 30 03/25/25 12:07 Trach Collar 7 30 03/25/25 12:07 Trach Collar 7 30 03/25/25 11:55 03/25/25 11:35 Trach Collar 7 30 Code Status & VTE Plan VTE Prophylaxis Plan VTE Prophylaxis will be ordered: Yes PG Care Time/CCT Total # of Minutes Spent Total Time Spent with Patient: Total time spent is greater than 50% in coordination of care (as documented) at patient's floor/unit and/or counseling patient: Coding Level of Care Code 35455 INT INP/OBS CARE 3/75MIN Diagnoses Acute on chronic heart failure with preserved ejection fraction I50.33 Acute respiratory acidosis J96.02 Obesity hypoventilation syndrome E66.[address] Z93.0
[2025-03-25] MEDS ORDERED: POLYETHYLENE (MIRALAX) 17 GM PACK PO PRN (15:59)
[2025-03-25] MEDS ORDERED: IPRATROPIUM BROMIDE/ALBUTEROL respimat INH INH PRN (15:59)
[2025-03-25] MEDS ORDERED: NITROGLYCERIN SL 0.4 MG/TAB TAB SL PRN (15:59)
[2025-03-25] MEDS ORDERED: MELATONIN 3 MG TAB PO PRN (15:59)
[2025-03-25] MEDS ORDERED: NALOXONE NASAL SPRAY 4 MG ER HOMEPACK PRN (15:59)
[2025-03-25] MEDS ORDERED: ALUMINUM/MAGNESIUM SUSP 30 ML UDC PO PRN (15:59)
[2025-03-25] MEDS ORDERED: NALOXONE HCL 0.4 MG/1 ML VIAL/CARP IV PRN (16:18)
[2025-03-25] MEDS ORDERED: GLUCAGON FOR INJ 1 MG VIAL SQ PRN (16:19)
[2025-03-25] MEDS ORDERED: GLUCOSE 40% GEL 15 GM TUBE PO PRN (16:19)
[2025-03-25] MEDS ORDERED: INSULIN ASPART 100 UNITS/ML VIAL SC PRN (16:19)
[2025-03-25] MEDS ORDERED: DEXTROSE 50% 50 ML SYRINGE IV PRN (16:19)
[2025-03-25] MEDS ORDERED: GLUCOSE 10 TAB/TUBE PO PRN (16:19)
[2025-03-25] MEDS ORDERED: CARBOHYDRATES FOR HYPOGLYCEMIA PO PRN (16:19)
[2025-03-25] MEDS: ENOXAPARIN INJ 40 MG/0.4 ML SYR SQ SCH (16:38)
--- OUTSIDE RECORDS SUMMARY | 2025-03-25 17:08 | External Medical Summary | Continuity of Care Document ---
Author Name Unknown Organization [address] [place] [phone] Care Team Providers Care Delivery Manager Name Role Phone Ofe Mcgee Primary Care Physician [phone] [id number] Date(s): 03/18/25 - 03/18/25 [facility] [address]49 [facility] 207 [facility] [address] [address] [phone] Encounter Diagnosis Depression(Discharge Diagnosis) - 03/18/25 Indwelling Paul catheter present(Discharge Diagnosis) - 03/18/25 Acute on chronic congestive heart failure(Discharge Diagnosis) - 03/18/25 CKD (chronic kidney disease), stage IV(Discharge Diagnosis) - 03/18/25 Fracture of distal femur(Discharge Diagnosis) - 03/18/25 Hypertension(Discharge Diagnosis) - 03/19/25 Discharge Disposition: Home or Self Care Attending [...] Assessment and Plan Extracted from: Title:Office Visit Note: [facility]ichar[facility] Follow Up Author:DO Dumont Paige M Date:03/18/25 1. Acute on chronic congest mahnaz heart failure Chronic condition, at goal Goal: Prevent future CHF exacerbations Data: unique tests reviewed: _ [facility] Discharge Summary Plan: Continue Torsemide 30mg as prescribed at discharge. Discussed avoiding salt intake and limiting fluids (currently drinking about 1200mL per day). Follow up with PCP/Dr. Grey in 6-8 weeks. 2. Indwelling Paul catheter present Undifferentiated new problem with uncertain prognosis Goal: Removal of paul catheter Data: external notes including: _[facility] Discharge Summary Plan: Paul catheter inserted at time of admission while in the ED on 03/07. Discussed with patient that although the paul is convenient it will very likely lead to more issues as it could lead to infection or resistant bacteria growth. Discussed with patient that although we could remove the paul catheter in office, we do not have the ability to assess/complete voiding trial and with almost two weeks with the paul catheter in place there is a high likelihood that she could have some urinary retention. After discussion of options, patient agreeable to referral to urology. 3. CKD (chronic kidney disease), stage IV Chronic condition, at goal Goal: Maintain kidney function Data: external notes including: _[facility] Discharge Summary Plan: Cr 1.74 at time of discharge, baseline appears to be between 1.4-1.8. Renal function appears to be tolerating change in diuretics, consider repeating metabolic panel at next follow up appointment. 4. Fracture of distal femur Chronic condition, at goal Goal: Pain/symptom management Data: N/A Plan: Pain is managed at present with oxycodone 10mg, reports adequate pain control. Has previously been evaluated by orthopedics on multiple occasions and it was determined that no surgical intervention is possible. Immunizations Given and Recorded Vaccine Date Status [...] bivalent 1 10/26/22 R ecorded SARS-CoV-2 mRNA ([id number]-gvi) 2 06/08/22 Recorded SARS-CoV-2 (COVID-19) mRNA BNT-162b2 [...] 1 Refill(s) Start Date: 05/20/21 Status: Ordered Repeat number: 1 Albuterol (Eqv-ProAir HFA) 90 mcg/inh inhalation aerosol Start: 09/27/24 1:35:00 PM EST, 2 puff, inhaled, q6h, Disp# 6.7 g, Refills: 5, Pharmacy: [id number] Start Date: 09/27/24 Status: Ordered Quantity: 6.7 Unit: g Repeat number: 6 albuterol-ipratropium 2.5 mg-0.5 mg/3 mL inhalation solution Start: 09/27/24 1:35:00 PM EST, 3 mL, inhaled, q6h, Disp# 90 mL, Refills: 5, PRN: as needed for shortness of breath or wheezing, Pharmacy: [id number] Start Date: 09/27/24 Status: Ordered Quantity: 90.0 Unit: mL Repeat number: 6 Indications: Chronic respiratory failure, unspecified whether with hypoxia or hypercapnia; atorvastatin 40 mg oral tablet Start: 10/05/24 3:18:00 PM EST, 1 tab, PO, Daily, Disp# 90 tab, Refills: 3, Pharmacy: [id number] Start Date: 10/05/24 Stop Date: 09/30/25 Status: Ordered Quantity: 90.0 Unit: tab Repeat number: 4 budesonide 0.5 mg/2 mL inhalation suspension Start: 04/19/24 1:48:00 PM EDT, 2 mL, NEB, bid, Disp# 120 mL, Refills: 2, Pharmacy: [facility] #[facility] Start Date: 04/19/24 Stop Date: 07/18/24 Status: Ordered Quantity: 120.0 Unit: mL Repeat number: 3 buPROPion 100 mg/12 hours (SR) oral tablet, extended release Start: 03/18/25 12:39:00 PM EDT, See Instructions, Disp# 90 tab, Refills: 2, take 1 tablet by mouth in the morning and 2 tablets in the evening, Pharmacy: [place] [id number] Start Date: 03/18/25 Status: Ordered Quantity: 90.0 Unit: tab Repeat number: 3 Desitin 40% topical paste Start: 05/18/24 11:35:00 AM EDT, 1 appl, topical, 5x/Day, Disp# 454 g, Refills: 6, Pharmacy: [facility] #[facility] Start Date: 05/18/24 Status: Ordered Quantity: 454.0 Unit: g Repeat number: 7 docusate sodium 100 mg oral capsule Start: 11/01/23 1:55:00 PM EST, 1 cap, PO, bid, Disp# 60 cap, 100 Unknown, Oral, 1 Refill(s), Pharmacy: [facility] #[facility] Start Date: 11/01/23 Status: Ordered Quantity: 60.0 Unit: cap Repeat number: 1 famotidine 20 mg oral tablet Start: 04/09/24 3:08:00 PM EDT, 1 tab, PO, Daily, Disp# 30 tab, 30 tab, 0 Refill(s), Pharmacy: [facility] #[facility] Start Date: 04/09/24 Stop Date: 05/09/24 Status: Ordered Quantity: 30.0 Unit: tab Repeat number: 1 folic acid 1 mg oral tablet Start: 08/06/24 11:35:00 AM EDT, See Instructions, Disp# 30 tab, Refills: 6, TAKE 1 TABLET BY MOUTH ONCE DAILY, Pharmacy: [facility][id number] Start Date: 08/06/24 Status: Ordered Quantity: 30.0 Unit: tab Repeat number: 7 HumaLOG Vial 100 units/mL injectable solution Start: 11/04/23 6:39:00 PM EST, 1 unit =, subQ, Daily, Disp# 3 mL, Refills: 4, Per pump, Note to Pharmacy: May substitute for formulary equivalent., Pharmacy: [facility][id number] Start Date: 11/04/23 Status: Ordered Quantity: 3.0 Unit: mL Repeat number: 5 hydrocortisone 1% topical cream Start: 11/27/24 8:43:00 AM EST, 1 appl, topical, bid, Disp# 15 g, Refills: 1, apply in a thin film tothe affected skin and rub in gently and completely, Pharmacy: [facility][id number] Start Date: 11/27/24 Stop Date: 12/25/24 Status: Ordered Quantity: 15.0 Unit: g Repeat number: 2 Indications: Rash and other nonspecific skin eruption; Pressure ulcer of unspecified site, unspecified stage; isosorbide mononitrate 60 mg oral tablet, extended release Start: 11/01/23 1:56:00 PM EST, See Instructions, Disp# 30 tab, Refills: 3, TAKE ONE TABLET BY MOUTH EVERY MORNING, Pharmacy: [id number] Start Date: 11/01/23 Status: Ordered Quantity: 30.0 Unit: tab Repeat number: 4 Indications: Essential (primary) hypertension; Difficulty in walking, not elsewhere classified; Unspecified diastolic (congestive) heart failure; Bronchiectasis, uncomplicated; Hypothyroidism, unspecified; Morbid (severe) obesity due to excess calories; 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; Type 2 diabetes mellitus without complications; Chronic kidney disease, stage 4 (severe); Anxiety disorder, unspecified; Tracheostomy status; levothyroxine 200 mcg (0.2 mg) oral tablet Start: 11/06/24 3:01:00 AM EST, 1 tab, PO, Daily, Disp# 30 tab, Refills: 6, Pharmacy: [id number] Start Date: 11/06/24 Stop Date: 06/04/25 Status: Ordered Quantity: 30.0 Unit: tab Repeat number: 7 levothyroxine 25 mcg (0.025 mg) oral tablet Start: 11/06/24 3:01:00 AM EST, 1 tab, PO, Daily, Disp# 30 tab, Refills: 6, Note to Pharmacy: should be on 225 mcg, Pharmacy: [id number] Start Date: 11/06/24 Stop Date: 06/04/25 Status: Ordered Quantity: 30.0 Unit: tab Repeat number: 7 Indications: Morbid (severe) obesity due to excess calories; loratadine 10 mg oral tablet Start: 01/03/25 10:48:00 AM EST, 1 tab, PO, Daily, Disp# 30 tab, Refills: 6, 10 Unknown, Oral, 1 Refill(s), Pharmacy: [facility] #[facility] Start Date: 01/03/25 Status: Ordered Quantity: 30.0 Unit: tab Repeat number: 7 melatonin Start: 03/07/24 10:41:00 AM EDT Start Date: 03/07/24 Status: Ordered Repeat number: 1 metOLazone 2.5 mg oral tablet Start: 11/01/23 1:57:00 PM EST, 1 tab, PO, Daily, Disp# 30 tab, Refills: 4, Pharmacy: [facility] Start Date: 11/01/23 Status: Ordered Quantity: 30.0 Unit: tab Repeat number: 5 Metoprolol Tartrate 25 mg oral tablet Start: 11/06/24 3:01:00 AM EST, See Instructions, Disp# 60 tab, Refills: 6, TAKE 1 TABLET BY MOUTH TWICE DAILY, Pharmacy: [facility] #[facility] Start Date: 11/06/24 Status: Ordered Quantity: 60.0 Unit: tab Repeat number: 7 miconazole 2% topical cream Start: 06/28/24 3:23:00 PM EDT, 1 appl, topical, Daily, Disp# 4 g, Refills: 0, Pharmacy: [facility] #[facility] Start Date: 06/28/24 Stop Date: 07/12/24 Status: Ordered Quantity: 4.0 Unit: g Repeat number: 1 montelukast 10 mg oral tablet Start: 11/06/24 3:01:00 AM EST, See Instructions, Disp# 30 tab, Refills: 11, TAKE 1 TABLET BY MOUTHEVERY EVENING, Pharmacy: [facility] #[facility] Start Date: 11/06/24 Status: Ordered Quantity: 30.0 Unit: tab Repeat number: 12 Narcan 4 mg/0.1 mL nasal spray Start: 01/06/24 4:52:00 PM EST, 4 mg =, intranasal, ONCE, Disp# 2 each, Refills: 0, in case of overdose/unresponsive. may repeat every 2 to 3 minutes until patient responds, Pharmacy: [facility][id number] Start Date: 01/06/24 Status: Ordered Quantity: 2.0 Unit: each Repeat number: 1 nitroglycerin 0.4 mg sublingual tablet Start: 07/11/24 1:00:00 PM EDT, 1 tab, SL, q5min, Disp# 100 tab, Refills: 3, PRN: as needed for chest pain, Pharmacy: [facility] #[facility] Start Date: 07/11/24 Status: Ordered Quantity: 100.0 Unit: tab Repeat number: 4 nitroglycerin 0.4 mg sublingual tablet Start: 07/11/24 1:00:00 PM EDT, 1 tab, SL, q5min, Disp# 100 tab, Refills: 3, PRN: as needed for chest pain, Pharmacy: [facility] #[facility] Start Date: 07/11/24 Status: Ordered Quantity: 100.0 Unit: tab Repeat number: 4 One Touch Ultra Test Strips 100 ct Start: 05/29/24 4:18:00 AM EDT, See Instructions, Disp# 100 each, Refills: 0, Test ACHS, Note to Pharmacy: May substitute for glucometer, Pharmacy: [facility] #[facility] Start Date: 05/29/24 Status: Ordered Quantity: 100.0 Unit: each Repeat number: 1 oxyCODONE 10 mg oral tablet Start: 02/18/25 4:54:00 PM EDT, 10 mg =, PO, bid, Disp# 60 tab, Refills: 0, PRN severe, chronic, intractable pain, Pharmacy: [id number], Earliest Fill Date: 02/23/25 Start Date: 02/18/25 Status: Ordered Quantity: 60.0 Unit: tab Repeat number: 1 Indications: Difficulty in walking, not elsewhere classified; Other chronic pain; pantoprazole 40 mg oral delayed release tablet Start: 01/03/25 8:46:00 AM EST, See Instructions, Disp# 30 tab, Refills: 6, TAKE 1 TABLET BY MOUTH ONCE DAILY, Pharmacy: [facility] #[facility] Start Date: 01/03/25 Status: Ordered Quantity: 30.0 Unit: tab Repeat number: 7 Polysporin 500 units-10,000 units/g topical ointment Start: 11/01/23 1:55:00 PM EST, 1 appl, topical, bid, Disp# 15 g, Refills: 1, Pharmacy: [facility][id number] Start Date: 11/01/23 Stop Date: 11/29/23 Status: Ordered Quantity: 15.0 Unit: g Repeat number: 2 Indications: Other skin changes; potassium chloride 20 mEq oral tablet, extended release Start: 10/29/24 2:58:00 AM EST, 1 tab, PO, bid, Disp# 60 tab, Refills: 6, Pharmacy: [facility][id number] Start Date: 10/29/24 Stop Date: 05/27/25 Status: Ordered Quantity: 60.0 Unit: tab Repeat number: 7 Indications: Hypokalemia; Salonpas Maximum Strength 4% topical film Start: 11/01/23 1:57:00 PM EST, See Instructions, Disp# 30 film, Refills: 3, do not leave patch on for more than 8 hours at a time, Pharmacy: [facility][id number] Start Date: 11/01/23 Status: Ordered Quantity: 30.0 Unit: Repeat number: 4 sertraline 50 mg oral tablet Start: 03/18/25 12:39:00 PM EDT, 1 tab, PO, Daily, Disp# 30 tab, Refills: 2, Pharmacy: [id number] Start Date: 03/18/25 Stop Date: 06/16/25 Status: Ordered Quantity: 30.0 Unit: tab Repeat number: 3 Indications: Depression, unspecified; spironolactone 25 mg oral tablet Start: 11/06/24 3:01:00 AM EST, 1 tab, PO, Daily, Disp# 30 tab, Refills: 3, Pharmacy: [id number] Start Date: 11/06/24 Stop Date: 03/06/25 Status: Ordered Quantity: 30.0 Unit: tab Repeat number: 4 Indications: Unspecified diastolic (congestive) heart failure; Anxiety disorder, unspecified; Morbid (severe) obesity due to excess calories; Bronchiectasis, uncomplicated; Hypothyroidism, unspecified; Essential (primary) hypertension; Type 2 diabetes mellitus without complications; Morbid (severe)obesity with alveolar hypoventilation; Tracheostomy status; Difficulty in walking, not elsewhere classified; Chronic kidney disease, stage 4 (severe); Alonso Sofia Start: 08/12/23 12:52:00 PM EDT Start Date: 08/12/23 Status: Ordered Repeat number: 1 topiramate 100 mg oral tablet Start: 01/03/25 8:46:00 AM EST, See Instructions, Disp# 90 tab, Refills: 6, TAKE ONE TABLET BY MOUTHEVERY MORNING AND TWO TABLETS AT BEDTIME., Pharmacy: [id number] Start Date: 01/03/25 Status: Ordered Quantity: 90.0 Unit: tab Repeat number: 7 torsemide 10 mg oral tablet Start: 03/18/25 7:02:00 PM EDT, See Instructions, 3 tablets PO daily Start Date: 03/18/25 Status: Ordered Repeat number: 1 Vagisil 5%-2% vaginal cream Start: 04/12/24 2:27:00 PM EDT, 1 appl, topical, bid, Disp# 28 g, Refills: 0, Pharmacy: [id number] Start Date: 04/12/24 Status: Ordered Quantity: 28.0 Unit: g Repeat number: 1 Indications: Other specified noninflammatory disorders of vagina; Tracheostomy status; Chronic respiratory failure, unspecified whether with hypoxia or hypercapnia; Morbid (severe) obesity with alveolar hypoventilation; Morbid (severe) obesity due to excess calories; Chronic kidney disease, stage 4 (severe); Voltaren 1% topical gel Start: 09/27/24 1:36:00 PM EST, 1 appl, topical, qid, Disp# 100 g, Refills: 4, Pharmacy: [id number] Start Date: 09/27/24 Status: Ordered Quantity: 100.0 Unit: g Repeat number: 5 Voltaren 75 mg oral enteric coated tablet Start: 02/26/25 12:51:00 PM EDT, 1 tab, PO, bid, Disp# 60 tab, Refills: 1, PRN: as needed for arthritis, Pharmacy: [id number] Start Date: 02/26/25 Stop Date: 04/27/25 Status: Ordered Quantity: 60.0 Unit: tab Repeat number: 2 Indications: Difficulty in walking, not elsewhere classified; Unspecified atrial flutter; Other chronic pain; Hypothyroidism, unspecified; Chronic obstructive pulmonary disease with (acute) exacerbation; Chronic respiratory failure, unspecified whether with hypoxia or hypercapnia; Heart failure, unspecified; Encounter for follow-up examination after completed treatment for conditions other than malignant neoplasm; Zofran 4 mg oral tablet Start: 12/02/23 11:00:00 AM EST, 1 tab, PO, q12h, Disp# 30 tab, PRN: as needed for nausea/vomiting, Pharmacy: [id number] Start Date: 12/02/23 Status: Ordered Quantity: 30.0 Unit: tab Repeat number: 1 Indications: Chronic kidney disease, stage 4 (severe); Chronic right heart failure; Morbid (severe)obesity due to excess calories; Mental Status 03/18/25 Barriers to Learning one year None evide nt Mandatory Health Literacy Documentation Yes Health Literacy Communication Barriers N ever Primary Language Khmer Problem List Condition Confirmation Course Effective Dates [...] Effective Dates Health Status Clinical Service Informant Depression Discharge Diagnosis 03/18/25 Non-Specified Indwelling Paul catheter present Discharge Diagnosis 03/18/25 Non-Specified CKD (chronic kidney disease), stage IV Discharge Diagnosis 03/18/25 Non-Specified Fracture of distal femur Discharge Diagnosis 03/18/25 Non-Specified Acute on chronic congestive heart failure Discharge Diagnosis 03/18/25 Non-Specified Hypertension Discharge Diagnosis 03/19/25 Non-Specified Procedures Procedure Date Related Diagnosis Body [...] 02/29/08 Comp leted Appendicectomy Completed Cholecystectomy Completed [facility] - Total abdominal hy sterectomy [...] cm left renal lesion is new from 2007. this could be correlated with a followup [...] and an infectious/inflammatory process cannot be excluded. [id number] 25stg 4 ovarian cancer Vital Signs Most recent to oldest [Reference Range]: 1 Temperature [36.5-37.9 DegC] 36.5 DegC (03/18/25 10:27 AM) Blood Pressure 118/78mmHg (03/18/25 10:27 AM) BP Location # 1 Left Arm (03/18/25 10:27 AM) Social History Social History Type Response Tobacco 1 Smoking Status Never smoked cigaret chraito Sex Female Sex Representation Female (finding) 1none FCM Outpt Note * MD [place] P: MODIFY MD [place] P: MODIFY Event Display: FCM Outpt Note Authored Date: [id number] Chief Complaint Here for [facility] admission f/u. History of Present Illness Whit is a 69 year-old female who presents today for hospital discharge follow up appointment. Her medical history is significant for CHF, CAD, chronic pain, ambulatory dysfunction, T2DM, morbid obesity, chronic respiratory failure s/p tracheostomy. -Presented to [facility] on March 07 due to 2-3 weeks with increased weakness, productive cough/shortness of breath, and weight gain of 40lbs. Was admitted from 03/07-03/13 for acute exacerbation of CHF -During the admission, approximately 13L of fluid was diuresed. Patient states her breathing is much improved and her legs are back to baseline/not edematous -Discharge summary does not specifically mention the plan for her paul catheter which was not removed at time of discharge -At time of discharge, patient was resumed on Torsemide 30mg daily -Patient reports that she is feeling stronger already since her discharge, will be able to help situp/transfer to toilet better over time Physical Exam Vitals & Measurements T: 36.5 °C BP: 118/78 SpO2: 91% PHQ2 Data (Data Documented on:03/18/2025 10:26) Emotional health assessment NEGATIVE General: Alert and oriented, No acute distress HEENT: Normocephalic, Nl gross hearing, moist oral mucosa Cardiovascular: Normal rate, Regular rhythm, No murmur, No gallop. Respiratory: Lungs are clear to auscultation, Respirations are non-labored, Breath sounds are equal Integumentary: Warm, Dry, [place]. No pitting edema of bilateral lower extremities. Psych: Mood-affect congruence. Speech is of normal pace and content Assessment/Plan 1. Acute on chronic congestive heart failure Chronic condition, at goal Goal: Prevent future CHF exacerbations Data: unique tests reviewed: _ [facility] Discharge Summary Plan: Continue Torsemide 30mg as prescribed at discharge. Discussed avoiding salt intake and limiting fluids (currently drinking about 1200mL per day). Follow up with PCP/Dr. Grey in 6-8 weeks. 2. Indwelling Paul catheter present Undifferentiated new problem with uncertain prognosis Goal: Removal of paul catheter Data: external notes including: _[facility] Discharge Summary Plan: Paul catheter inserted at time of admission while in the ED on 03/07. Discussed with patient that although the paul is convenient it will very likely lead to more issues as it could lead to infection or resistant bacteria growth. Discussed with patient that although we could remove the paul catheter in office, we do not have the ability to assess/complete voiding trial and with almost two weeks with the paul catheter in place there is a high likelihood that she could have some urinary retention. After discussion of options, patient agreeable to referral to urology. 3. CKD (chronic kidney disease), stage IV Chronic condition, at goal Goal: Maintain kidney function Data: external notes including: _[facility] Discharge Summary Plan: Cr 1.74 at time of discharge, baseline appears to be between 1.4-1.8. Renal function appears to be tolerating change in diuretics, consider repeating metabolic panel at next follow up appointment. 4. Fracture of distal femur Chronic condition, at goal Goal: Pain/symptom management Data: N/A Plan: Pain is managed at present with oxycodone 10mg, reports adequate pain control. Has previouslybeen evaluated by orthopedics on multiple occasions and it was determined that no surgical intervention is possible. Attestation I saw patient and was present for the pappas portions of the history and physical. I agree with theresident's note and plan as documented in the resident's note. Agree that contacting Urology to discuss the plan will help in her care for paul catheter removal. Jayy San Problem List/Past Medical History Ongoing [...] extended release), See Instructions, 2 refills camphor-menthol topical([place]) diabetes supplies(One Touch Ultra Test Strips 100 [...] tablet), 50 mg= 1 tab, PO, Daily, 2 refills spironolactone(spironolactone 25 mg oral tablet), 25 mg= 1 tab, PO, Daily, 3 refills topiramate(topiramate 100 mg oral tablet), See Instructions, 6 refills torsemide(torsemide 10 mg oral tablet), See Instructions zinc oxide topical(Desitin 40% topical paste), 1 [...] cigarettes Alcohol - Comments: none Employment/School Status:Retired Description:[employer]. Home/Environment Lives with:Children Other risks in environment:Pets/Animal [...] : 2023-11-01: Historical information-source unspecified SARS-CoV-2 mRNA (wqjxgiohqbk-rhao-mos) 06/08/2022 Recorded Comments : 2023-11-01: Historical information-source [...] Maintenance Pending (in the next year) OverDue Breast Cancer Screening due 09/26/22 and every 731 day Colorectal Cancer Screening due 01/10/23 and every 3 Months Diabetic Eye Exam due 01/27/23 and every 366 day Due Adult Social Determinants of Health Screening due 03/18/25 Unknown Frequency Adult Tdap/Td Vaccine due 03/18/25 Unknown Frequency Body Mass Index due 03/18/25 Unknown Frequency Falls Plan of Care due 03/18/25 Unknown Frequency Medicare Annual Wellness Visit due 03/18/25 and every 1 year Pneumococcal Vaccine Older Adults due 03/18/25 One-time only Seasonal COVID 19 Vaccine due 03/18/25 Unknown Frequency Shingles Vaccine due 03/18/25 One-time only Due In Future Adult Influenza Vaccine not due until 05/21/25 and every 1 year Diabetes Management A1c not due until 12/01/25 and every 366 day Kidney Health Evaluation not due until 12/18/25 and every 366 day Satisfied (in the past 1 year) Satisfied Adult Influenza Vaccine on 08/01/24. Satisfied by MD Bradford Christopher Diabetes Management A1c on 11/30/24. Satisfied by CHARLENE Jones Lynnae Kidney Health Evaluation on 12/17/24. Satisfied by CHARLENE Jones Lynnae Electronic Signature on File Electronically Reviewed/Signed by: Anyi Dumont Author Signature Dt/Tm:03/18/2025 07:04 PM Resident Department of Family Medicine Electronically Reviewed/Signed by: MD Dong Mackenzieigner Signature Dt/Tm: 03/19/2025 08:42AM Department of Family Medicine PMW Patient Care team information Care Team Personnel Name: DO Davila Amanda Position: Resident Member Role: Lifetime Relationship Address: [address] [place] [address] Telecom: [phone] Name: DO Chappell Sameer Position: Resident Member Role: Lifetime Relationship Address: [address] [place] [address] Telecom: [phone] Name: MONISHA Baltazar Christina L Position: Physician - Podiatry Member Role: Lifetime Relationship Address: [address] [facility] [address] Telecom: [phone] Name: MD Mcgee Madhavi Position: Physician - Family Med Member Role: Primary Care Provider Address: [address] [facility] [address] [place] [address] Telecom: [phone] Care Team Related Persons Name: MURRAY LYNN Name: CÉSAR NICOLE Insurance Providers Guarantor name: WHIT JACKSON Health Plan Information #: 1 Payer: [facility] Member Number: [id number] Policy Number: NA Group Number: [id number] Payer Identifier: [id number] Health Plan Information #: 2 Payer: [facility] Member Number: [id number] Policy Number: NA Group Number: [id number] Payer Identifier: [id number] Health Plan Information #: 3 Payer: MEDICARE Member Number: NA Policy Number: NA Group Number: NA Payer Identifier: [id number] Health Plan Information #: 4 Payer: [place] [employer] Member Number: NA Policy Number: NA Group Number: NA Payer Identifier: [id number] Health Plan Information #: 5 Payer: CCB[employer] KENNY Member Number: NA Policy Number: Group Number: NA Payer Identifier: NA
[2025-03-25] MEDS: INSULIN, Rapid-Acting PUMP SC SCH (17:32)
[2025-03-25] MEDS: ACETAMINOPHEN 325 MG TAB PO PRN (18:04)
[2025-03-25] MEDS: oxyCODONE HCL IR 5 MG TAB (IMMEDIATE RELEASE) PO PRN (18:50)
[2025-03-25] MEDS: ONDANSETRON INJ 2 MG/ML 2 ML VIAL IV PRN (18:51)
[2025-03-25 19:11] LABS: Appearance Urine Cloudy (Clear); Bacteria Urine Automated 4+ (None Seen); Bilirubin Urine Negative (Negative); Blood Urine Negative (Negative); Cast Urine Automated 0-2 /lpf (0-2); Color Urine Yellow; Epithelial Cell Urine Auto 0-2 /hpf (0-2); Glucose Urine UA 3+ (Negative); Ketones Urine Negative (Negative); Leukocyte Esterase Urine 2+ (Negative); Nitrite Urine Negative (Negative); Protein Urine Negative (Negative); RBC Urine Automated 0-2 /hpf (0-2); Specific Gravity Urine 1.015 (1.000-1.030); Urobilinogen Urine Negative (Negative); WBC Urine Automated >50 /hpf (0-5); pH Urine 6.5 (4.5-7.5)
[2025-03-25] MEDS: BUDESONIDE 0.5 MG/2 ML VIAL (PULMICORT) NEB SCH (20:14)
[2025-03-25] MEDS: METOPROLOL TARTRATE 25 MG TAB PO SCH (21:06)
[2025-03-25] MEDS: POTASSIUM CHLORIDE CRTAB 20 MEQ TABCR PO SCH (21:06)
[2025-03-25] MEDS: LANTUS PER UNIT CHARGE SQ SCH (21:24)
[2025-03-25] MEDS: INSULIN ASPART PER UNIT CHARGE SC SCH (21:24)
[2025-03-25] MEDS: ATORVASTATIN 40 MG TAB PO SCH (21:35)
--- NOTE | 2025-03-26 04:38 | Electrocardiogram Report ---
Test Reason : Blood Pressure : */* mmHG Vent. Rate : 93 BPM Atrial Rate : 93 BPM P-R Int : 268 ms QRS Dur : 132 ms QT Int : 374 ms P-R-T Axes : 36 -62 23 degrees QTcB Int : 465 ms Sinus rhythm with 1st degree A-V block Right bundle branch block Left anterior fascicular block Bifascicular block Possible Lateral infarct (cited on or before 04-Feb-2024) Abnormal ECG When compared with ECG of 07-Mar-2025 16:02, Premature ventricular complexes are no longer Present Confirmed by Lev Trejo ([id number]) on 03/26/2025 4:38:18 AM Referred By: REFERRED SELF Confirmed By: Lev Trejo
[2025-03-26 04:46] LABS: Basophils # (auto) 0.03 K/uL (0.00-0.20); Basophils % (auto) 0.2 %; Eosinophils # (auto) 0.01 K/uL (0.00-0.50); Eosinophils % (auto) 0.1 %; Hematocrit (blood only) 42.7 % (37.0-47.0); Hemoglobin 12.1 g/dl (12.0-16.0); Immature Granulocytes # (auto) 0.13 K/uL (0.01-0.20); Lymphocytes # (auto) 1.52 K/uL (1.20-3.40); Lymphocytes % (auto) 11.9 %; Mean Corpuscular Hemoglobin 26.5 pg (25.0-34.0); Mean Corpuscular Hgb Conc 28.3 g/dL (32.0-36.0); Mean Corpuscular Volume 93.6 fL (80.0-100.0); Mean Platelet Volume 9.5 fL (9.4-12.4); Monocytes % (auto) 9.4 %; Neutrophils # (auto) 9.84 K/uL (1.40-6.50); Neutrophils % (auto) 77.4 %; Nucleated RBC # (auto) 0.03 K/uL (0.00-0.12); Nucleated RBC % (auto) 0.2 %; Platelet Count 278 K/uL (130-400); RDW Coefficient of Variation 16.6 % (11.5-14.5); RDW Standard Deviation 57.1 fL (36.4-46.3); Red Blood Count 4.56 M/uL (4.20-5.40); White Blood Count 12.73 K/ul (4.8-10.8)
[2025-03-26 05:01] LABS: BUN Creatinine Ratio 24.2 (10-20); Calcium 9.1 mg/dl (8.6-10.3); Creatinine Clr Calc Pharmacy 49.7 ml/min
[2025-03-26] MEDS: PANTOprazole 40 MG TAB PO SCH (05:37)
[2025-03-26] MEDS: LEVOTHYROXINE SODIUM 25 MCG TABLET PO SCH (05:37)
[2025-03-26] MEDS: LEVOTHYROXINE SODIUM 200 MCG TABLET PO SCH (05:37)
[2025-03-26] MEDS: FAMOTIDINE 20 MG TAB PO PRN (05:38)
[2025-03-26] MEDS: MAGNESIUM HYDROXIDE SUSP 30 ML UDC PO PRN (07:33)
[2025-03-26] MEDS: ALBUT/IPRATROP 3MG/0.5MG NEB 3 ML VIAL INH PRN (07:55)
[2025-03-26] MEDS: FOLIC ACID 1 MG TAB PO SCH (09:12)
[2025-03-26] MEDS: ASPIRIN 81 MG ECTAB PO SCH (09:12)
[2025-03-26] MEDS: ISOSORBIDE MONO EXTENDED REL 60 MG TABCR PO SCH (09:12)
[2025-03-26] MEDS: MAGNESIUM OXIDE 400 MG TAB PO SCH (09:13)
[2025-03-26] MEDS: MULTIVITAMIN TAB PO SCH (09:13)
[2025-03-26] MEDS: SPIRONOLACTONE 25 MG TAB PO SCH (09:14)
[2025-03-26] MEDS: buPROPion SR 100 MG TABCR PO SCH (09:14)
[2025-03-26] MEDS: SERTRALINE HCL 50 MG TABLET PO SCH (09:14)
[2025-03-26] MEDS: EMPAGLIFLOZIN 10 MG TAB PO SCH (09:14)
[2025-03-26] MEDS: TOPIRAMATE 100 MG TAB PO SCH (09:15)
[2025-03-26] MEDS: FUROSEMIDE 40 MG/4 ML VIAL IV SCH (09:16)
[2025-03-26] MEDS: TORSEMIDE 10 MG TAB PO SCH (09:20)
[2025-03-26] MEDS: ONDANSETRON INJ 2 MG/ML 2 ML VIAL IV STA (10:43)
--- NOTE | 2025-03-26 11:04 | Hospitalist Progress Note ---
Date of Service March 26, 2025 Assessment & Plan (1) CHF (congestive heart failure): (2) Acute on chronic heart failure with preserved ejection fraction: (3) Obesity hypoventilation syndrome: (4) Morbid obesity with BMI of 60.0-69.9, adult: (5) Chronic kidney disease, stage 3: (6) Insulin-requiring or dependent type II diabetes mellitus: Plan 69-year-old female with significant past medical history of obstructive sleep apnea, obesity hypoventilation syndrome, cor pulmonale, COPD, insulin-dependent diabetes mellitus, chronic nonweightbearing of her right lower extremity due to nonhealing fracture, now admitted for acute on chronic heart failure and respiratory failure 2/2 hypoventillation. #Acute HF on chronic with PrEF: - Patient reported increased SON - Vitals: Stable - PE: edematous periphery, BL rales occasional - Labs: Troponin : WNL, BNP: 171 - ECG: Sinus rhythm with 1st degree A-V block, Right bundle branch block, Left anterior fascicular block - Imaging: CXR with Stable hazy opacity overlying the lung bases - Interventions: IV lasix 40 mg Plan: - Telemetry monitoring - Lasix 40 mg home dose continue - Continue home meds. - Supplemental O2. Wean down as tolerated. - 2 L fluid restriction. Low sodium diet (< 2 g/day). - Strict Ins/Outs - Daily weight check. - TTE : LVEF 60-65% 03/08. - Electrolyte replacement protocol (Mg > 2, K >4) #Nausea: - 2/2 to reflux. - Continue protonix and Zofran. - Zofran 6 mg IV stat given this AM. #Obesity Hypoventilation syndrome( OHS) - CO2 retention in VBG. - Tracheostomy insitu. - She might need cuffed tracheostomy ans Bipap in future. - Continue O2 as needed. #Type 2 diabetes on insulincontinue Jardiance, continue insulin pump, check fingersticks and follow #CKD stage III - follow creatinine with diuresis. - Pretty stable. will follow AM. Dispo: likely home after DC. DVT: Lovenox Code: Full Admission and Anticipated Discharge Date Admission Date: March 25, 2025 Supervising Physician Co-Signing Physician Notes I personally examined the patient and verified all pappas points of history and exam, discussed case, and agree with decision making with Dr Sahara Sleeping soundly. Family and caregiver note that they realized when cross checking her glucose levels from her continuous monitor with levels here, the continuous monitor was missed reading by at least 50 pointswhich makes them suspicious that she was treating herself with much more insulin at home than she needed. Vitals noted. She is sleeping soundly and does not stir during conversation. Lungs are very quiet with diminished air entry while she is asleep, I cannot appreciate rales rhonchi or wheezes but also its modest respiratory effort at best. No accessory muscle use or retractions, and she appears to be in no distress. ABG checked and noted combined acute on chronic hypoxic and hypercapnic respiratory failureappears to be due to acute on chronic HFpEF as well as OHS/hypoventilation. Continue to diurese as necessary. In terms of her hypoventilation during sleep, on review at her last outpatient pulmonary visit she was supposed to have AVAPS when she is asleep but I am not sure that she still has thiswill have to investigate further. Fortunately her respiratory acidosis is fairly well compensated. Continue to follow closely. DVT proph - lovenox Subjective Miss Connelly feels nauseous and had some leg pain when I touched her ankle to check for swelling. No fever, breathing better she says. Review of Systems Review of Systems: As per HPI Physical Exam Physical Exam: Constitutional: Obese looking, Well appearing, No acute distress HEENT: Tracheostomy tube insitu, healthy looking base, no discharge. CVS: S1 S2 , Regular Rhythm, BL legs edematous. Respiratory: BL decreased air entry. Occasional basal rales. GI: Soft, Nondistended, Nontender, Normal Bowel sounds + MSK:Right leg appeared shorted than left. Skin: Warm, Dry, No rashes Neuro: Alert, Oriented to TPP, No Focal deficit Psych: Mood and Affect congruent, Cooperative on exam Results & Data Results & Data Vital Signs (Past 12 Hours) Vital Signs Temp Pulse Pulse Resp BP Pulse Ox O2 Del Method 03/26/25 09:11 78 22 154/72 H 93 Trach Collar 03/26/25 08:00 Trach Collar 03/26/25 07:56 77 22 96 Trach Collar 03/26/25 07:08 74 03/26/25 06:07 36.8 C 71 20 158/87 H 97 Trach Collar 03/26/25 02:50 69 22 143/85 H 96 Trach Collar 03/25/25 23:45 71 20 124/73 95 Trach Collar O2 Flow Rate FiO2 03/26/25 09:11 03/26/25 08:00 6 28 03/26/25 07:56 28 03/26/25 07:08 03/26/25 06:07 6 03/26/25 02:50 6 03/25/25 23:45 6 Resident Activity Tracking Resident Involvement: Resident Care Provided Care Provided: Adult Hospital Medicine (1) CHF (congestive heart failure) Heart failure chronicity: acute on chronic Heart failure type: unspecified Qualified Code(s): I50.9 - Heart failure, unspecified
[2025-03-26 17:18] LABS: HCO3 ABG 32 mmol/L (19-24); Oxygen Saturation ABG 95.9 % (90-95); PCO2 ABG 62 mmHg (35-46); PO2 ABG 72 mmHg (80-95); pH ABG 7.32 (7.35-7.45)
[2025-03-26 17:29] LABS: Allen Test Pos (Pos)
--- NOTE | 2025-03-26 19:08 | Billing Data ---
Date of Service March 26, 2025 Coding Level of Care Code 31750 SUB INP/OBS CARE
--- NOTE | 2025-03-26 19:09 | Billing Data ---
Date of Service March 26, 2025 Coding Level of Care Code 10122 SUB INP/OBS CARE
[2025-03-27 06:04] LABS: Basophils # (auto) 0.05 K/uL (0.00-0.20); Basophils % (auto) 0.4 %; Eosinophils # (auto) 0.13 K/uL (0.00-0.50); Eosinophils % (auto) 1.1 %; Hematocrit (blood only) 38.4 % (37.0-47.0); Hemoglobin 10.9 g/dl (12.0-16.0); Immature Granulocytes % (auto) 0.8 %; Lymphocytes # (auto) 1.98 K/uL (1.20-3.40); Lymphocytes % (auto) 16.4 %; Mean Corpuscular Hemoglobin 26.5 pg (25.0-34.0); Mean Corpuscular Hgb Conc 28.4 g/dL (32.0-36.0); Mean Corpuscular Volume 93.4 fL (80.0-100.0); Monocytes # (auto) 1.19 K/uL (0.11-0.59); Monocytes % (auto) 9.8 %; Neutrophils # (auto) 8.66 K/uL (1.40-6.50); Neutrophils % (auto) 71.5 %; Platelet Count 250 K/uL (130-400); RDW Coefficient of Variation 16.6 % (11.5-14.5); RDW Standard Deviation 57.1 fL (36.4-46.3); Red Blood Count 4.11 M/uL (4.20-5.40); White Blood Count 12.11 K/ul (4.8-10.8)
[2025-03-27 06:20] LABS: Albumin Globulin Ratio 0.9 (0.9-2); Albumin Level 3.2 gm/dl (3.4-5.0); BUN Creatinine Ratio 26.2 (10-20); Bilirubin,Total 0.4 mg/dl (0.2-1.0); Calcium 8.6 mg/dl (8.6-10.3); Creatinine Clr Calc Pharmacy 47.7 ml/min; Globulin 3.5 gm/dl (2.5-4.0); Potassium 4.4 mmol/L (3.5-5.1); Total Protein 6.7 gm/dl (6.0-8.3)
--- NOTE | 2025-03-27 08:52 | Hospitalist Progress Note ---
Date of Service March 27, 2025 Assessment & Plan (1) CHF (congestive heart failure): (2) Acute on chronic heart failure with preserved ejection fraction: (3) Obesity hypoventilation syndrome: (4) Morbid obesity with BMI of 60.0-69.9, adult: (5) Chronic kidney disease, stage 3: (6) Insulin-requiring or dependent type II diabetes mellitus: Plan 69-year-old female with significant past medical history of obstructive sleep apnea, obesity hypoventilation syndrome, cor pulmonale, COPD, insulin-dependent diabetes mellitus, chronic nonweightbearing of her right lower extremity due to nonhealing fracture, now admitted for acute on chronic heart failure and respiratory failure 2/2 hypoventillation. #Acute HF on chronic with PrEF: Stable enough for discharge: pending home arrangements. - Telemetry monitoring - Lasix 40 mg home dose continue - Continue home meds. - Supplemental O2. Wean down as tolerated. - 2 L fluid restriction. Low sodium diet (< 2 g/day). - Strict Ins/Outs - Daily weight check. - TTE : LVEF 60-65% 03/08. - Electrolyte replacement protocol (Mg > 2, K >4) #Obesity Hypoventilation syndrome( OHS) - CO2 retention in VBG. - Tracheostomy in situ. - non compliant to PAP device: FVAP was recommended by Pulm outpatient. - Continue O2 as needed. #Type 2 diabetes on insulincontinue Jardiance, continue insulin pump, check fingersticks and follow #CKD stage III: Stable Dispo: home after DC. Pending home arrangement DVT: Lovenox Code: Full Admission and Anticipated Discharge Date Admission Date: March 25, 2025 Supervising Physician Co-Signing Physician Notes I personally examined the patient and verified all pappas points of history and exam, discussed case, and agree with decision making with Dr Shoemaker feeling a good bit better. Discussed OHS and respiratory acidosis while asleep. Later discussed with pulmonary as well as respiratory therapywill need to discuss further with patient. She was very hesitant to change her trach to anything other than her current metal trachbut in discussion with pulmonary and respiratory, unfortunately any sort of pressure support would not be able to be used without a trach that can be cuffed. Vitals noted, in general she is awake and alert pleasant no distress. HEENT normocephalic atraumatic mucous membranes moist. Breathing unlabored no accessory muscle use good effort. Skin without rashes pallor or icterus. combined acute on chronic hypoxic and hypercapnic respiratory failureappears to be due to acute on chronic HFpEF as well as OHS/hypoventilation. Continue to diurese as necessary. In terms of her hypoventilation during sleep, on review at her last outpatient pulmonary visit she was supposed to have AVAPS when she is asleep but She does not have such a devicenor is her trach compatible with 1. We will need to continue to discuss this furtheras changing her trach is a big deal to her, but not treating what appears to be a worsening respiratory acidosis will directly impact her life and wellbeing. Positive urine cultureno notable infectious signs or symptoms. Will either be changing or discontinuing Foleypatient deciding if she wants to have voiding trial now or later in the future type 2 diabetescaregiver noted that her G7 was reading highand therefore patient was probably unwittingly overtreating herself with insulin. We discussed different ways to remedy this in the future, they feel most comforta ble with fingersticks. DVT proph - lovenox Subjective Miss Maricel feels better today, still difficult to breath in but better. Slept to baseline. She looked better to me this morning. No fever, cough, chest pain. Nausea is better today. Review of Systems Review of Systems: As per HPI Physical Exam Physical Exam: Constitutional: Obese looking, Well appearing, No acute distress HEENT: Tracheostomy tube insitu, healthy looking base, no discharge. CVS: S1 S2 , Regular Rhythm, BL legs edematous. Respiratory: BL decreased air entry. Occasional wheezy. Imprived rales. GI: Soft, Nondistended, Nontender, Normal Bowel sounds + MSK:Right leg appeared shorted than left. Skin: Warm, Dry, No rashes Neuro: Alert, Oriented to TPP, No Focal deficit Psych: Mood and Affect congruent, Cooperative on exam Results & Data Results & Data Vital Signs (Past 12 Hours) Vital Signs Temp Pulse Pulse Pulse Resp BP BP 03/27/25 08:02 36.7 C 68 18 125/64 03/27/25 07:46 58 L 03/27/25 06:21 63 18 03/27/25 00:00 36.9 C 58 L 18 106/55 L 03/26/25 23:30 65 03/26/25 22:00 Pulse Ox O2 Del Method O2 Flow Rate FiO2 03/27/25 08:02 95 Trach Collar 03/27/25 07:46 03/27/25 06:21 95 Trach Collar 28 03/27/25 00:00 96 Trach Collar 6 03/26/25 23:30 03/26/25 22:00 Trach Collar 6 Resident Activity Tracking Resident Involvement: Resident Care Provided Care Provided: Adult Hospital Medicine (1) CHF (congestive heart failure) Heart failure chronicity: acute on chronic Heart failure type: unspecified Qualified Code(s): I50.9 - Heart failure, unspecified
--- NOTE | 2025-03-27 12:54 | Discharge Summary ---
Date of Service March 27, 2025 Admission HPI Per Admitting Provider patient is a very pleasant 69-year-old female well-known to me. She notes that she was feeling well until maybe in the last 2 3 days once she started feeling more short of breath. During that time she was feeling more short of breath, no fevers chills or sweats, thick predominantly white sputum. Her caregiver feels that she probably has fluid overload. Caregiver also wondered about infection because her tracheostomy had not been changed and had a degree of exudative material on itthey changed the trach and the site has since remained more clean. Hard to get much of a diet recall from the patient, as she mostly relates that she has not had an appetite the last 2 days or so once she started feeling more short of breathbut it is hard to get a recall prior to that. Review of systems otherwise negative except for as above. Principal Diagnosis Acute exacerbation of heart failure Chronic hypercapnia due to OHS despite tracheostomy tube. Non compliant with PAP device. Discharge Exam Constitutional: Obese looking, Well appearing, No acute distress HEENT: Tracheostomy tube insitu, healthy looking base, no discharge. CVS: S1 S2 , Regular Rhythm, BL legs edematous. Respiratory: BL decreased air entry. Improved rales. GI: Soft, Nondistended, Nontender, Normal Bowel sounds + MSK:Right leg appeared shorted than left. Skin: Warm, Dry, No rashes Neuro: Alert, Oriented to TPP, No Focal deficit Psych: Mood and Affect congruent, Cooperative on exam Discharge Data Allergies Allergy/AdvReac Type Severity Reaction Status Date / Time animal dander Allergy Intermediate Sneezing, Unverified 03/25/25 15:27 itchy watery eyes and Difficulty Breathing Penicillins Allergy Intermediate Hives Verified 03/25/25 15:27 tree and shrub pollen Allergy Intermediate Sneezing, Unverified 03/25/25 15:27 itchy watery eyes and Difficulty Breathing amitriptyline Allergy Unknown CAN'T Verified 03/25/25 15:27 REMEMBER doxycycline Allergy Unknown CAN'T Verified 03/25/25 15:27 REMEMBER guaifenesin Allergy Unknown CAN'T Verified 03/25/25 15:27 REMEMBER metformin Allergy Unknown CAN'T Verified 03/25/25 15:27 REMEMBER phenylephrine Allergy Unknown CAN'T Verified 03/25/25 15:27 REMEMBER pseudoephedrine Allergy Unknown CAN'T Verified 03/25/25 15:27 REMEMBER tetracycline Allergy Unknown CAN'T Verified 03/25/25 15:27 REMEMBER venlafaxine [From Effexor] Allergy Unknown CAN'T Verified 03/25/25 15:27 REMEMBER gabapentin AdvReac Intermediate BECOMES Verified 03/25/25 15:27 AGGRESSIVE Consultations 03/25/25 13:31 ED Decision to Admit Stat Hospital Course (1) CHF (congestive heart failure): (2) Acute on chronic heart failure with preserved ejection fraction: (3) Obesity hypoventilation syndrome: (4) Morbid obesity with BMI of 60.0-69.9, adult: (5) Chronic kidney disease, stage 3: (6) Insulin-requiring or dependent type II diabetes mellitus: Plan 69-year-old female with significant past medical history of obstructive sleep apnea, obesity hypoventilation syndrome, cor pulmonale, COPD, insulin-dependent diabetes mellitus, chronic nonweightbearing of her right lower extremity due to nonhealing fracture, now admitted for acute on chronic heart failure and respiratory failure 2/2 hypoventillation. #Acute HF on chronic with PrEF: - Improved with 1 dose of IV lasix. - Not severe as last episode. - EF preserved. - Continue home med. #Nausea: . #Obesity Hypoventilation syndrome( OHS) - CO2 retention in VBG. - Tracheostomy insitu. . - Continue O2 as needed. - Continue BiPap as indicated before. - F/u with pulm team. #Type 2 diabetes on insulinstable, no change. #CKD stage III: stable, no change. Discharge Plan Discharge Items Patient Disposition: Home - Self-Care Reason For Visit: CHF EXACERBATION Discharge Diagnosis: Hypercapnia d/t chronic OHS, despite on tracheostomy. Acute CHF Condition on Discharge: Fair Activity: Resume your previous activity Non-emergency contact: Primary Care Provider and Pipe Organ Builder Call non-emergency contact if: your pain is worsening Follow-up/Referrals: Ofe Mcgee MD [Primary Care Provider] - Diet: Heart Healthy Addtl Attending Provider Instructions: You were admitted to the hospital for increased shortness of breath due to worsening of your heart failure and also added by your ventilation issue secondary to obesity. You were treated with intravenous Lasix which improved your symptoms significantly. We reviewed your notes from lung doctors that they were recommending you to use VPAP during night time at least, which would definitely help you prevent occasional breathing issues you are having currently. Also as you needed oxygen from 6-8 L during admission, please continue using oxygen at home. A discharge summary will be sent to your primary care physician to ensure c ontinuity of care. Please bring this discharge summary with you to your next office appointment so that your provider can review it at that time. Medications: Your medication list has been reviewed and reconciled upon discharge to ensure accuracy and continuity of care. An updated list of all your medications is included with your hospital discharge paperwork. Please review this list closely and make note of any changes to your medications. 1. NO CHANGE IN MEDICINE NOW. CONTINUE HOME MEDICATION. Follow up appointments: - Make a follow up appointment with your PCP within the next week. It is very important that you follow up with them shortly after discharge from the hospital. - Keep all of your follow up appointments as already scheduled. If you cannot make an appointment, notify your provider. CONTACT YOUR PRIMARY CARE PROVIDER if you experience any of the following: - Difficulty following your treatment plan - Difficulty taking any of your medications CALL 911 OR GO TO THE EMERGENCY DEPARTMENT if you experience any of the following -Related to reason for admission] -Sudden, severe abdominal pain or nausea/vomiting -Severe chest pain or chest pain that radiates to your jaw or arm -Sudden, severe shortness of breath or difficulty breathing Pending Studies at Discharge: No Stand-Alone Forms: My [facility], Smoking Cessation Medications and DC Order Prescriptions: Continued (DME) blood-glucose meter [OneTouch Ultra2 Meter] Misc See Rx Instructions .Route Qty: 1 0RF Rx Instructions: As directed insulin aspart U-100 [Novolog U-100 Insulin aspart] 100 unit/mL solution See Rx Instructions subcut DAILY Qty: 100 4RF Rx Instructions: For insulin pump 300 units a day. (DME) nebulizers Misc See Rx Instructions .Route Qty: 1 0RF Rx Instructions: PLEASE REPLACE COMPRESSOR; PREVIOUS ONE BROKEN BEYOND REPAIR (DME) pen needle, diabetic [BD Kaitlin 2nd Gen Pen Needle] 32 gauge x 5/32" needle See Rx Instructions miscellaneous .MEDSUPPLY Qty: 50 0RF Rx Instructions: As directed (DME) pen needle, diabetic [BD Kaitlin 2nd Gen Pen Needle] 32 gauge x 5/32" needle See Rx Instructions miscellaneous .MEDSUPPLY Qty: 150 5RF Rx Instructions: change new pen 5x a day ipratropium-albuterol 0.5 mg-3 mg(2.5 mg base)/3 mL solution for nebulization 3 ml INHALATION Q4H PRN (Reason: COUGHING, WHEEZING, SHORTNESS OF BREATH) Qty: 180 4RF (DME) OneTouch Ultra Test Strip See Rx Instructions .Route Qty: 400 3RF Rx Instructions: As directed four times per day to monitor blood glucose multivitamin Tablet 1 tab PO QAM Qty: 30 1RF atorvastatin 40 mg tablet 40 mg PO QPM Qty: 30 1RF aspirin [Robert Low Dose Aspirin] 81 mg Tablet,Delayed Release (Dr/Ec) 81 mg PO QAM Qty: 30 1RF spironolactone 25 mg Tablet 25 mg PO QAM Qty: 30 1RF pantoprazole 40 mg Tablet,Delayed Release (Dr/Ec) 40 mg PO DAILYBB Qty: 30 1RF nitroglycerin 0.4 mg tablet, sublingual 0.4 mg SL DIRECTED PRN (Reason: Chest Pain) Qty: 25 0RF sertraline 50 mg Tablet 50 mg PO QAM Qty: 30 1RF magnesium oxide 400 mg magnesium Tablet 400 mg PO QAM Qty: 30 1RF diclofenac sodium [Voltaren Arthritis Pain] 1 % gel 4 g EXT QID PRN (Reason: Pain) naloxone [Narcan] 4 mg/actuation spray,non-aerosol 4 mg INTRANASAL DIRECTED PRN (Reason: OVERDOSE) bupropion HCl 100 mg tablet sustained-release 12 hr See Rx Instructions .ROUTE .COMPLEX Rx Instructions: Take 100mg by mouth in the morning and 200mg by mouth at bedtime potassium chloride 20 mEq tablet extended release 20 meq PO BID diclofenac sodium 75 mg Tablet,Delayed Release (Dr/Ec) 75 mg PO BID Qty: 60 0RF famotidine 20 mg Tablet 20 mg PO DAILY PRN (Reason: heartburn) Qty: 30 0RF budesonide 0.5 mg/2 mL Suspension For Nebulization 0.5 mg NEB BIDR Qty: 120 0RF oxycodone 10 mg tablet 10 mg PO BID PRN (Reason: Pain) Rx Instructions: filled 09/07 30 day supply torsemide 10 mg tablet 30 mg PO QAM Qty: 90 1RF levothyroxine 25 mcg tablet 25 mcg PO QAM Rx Instructions: Take 25mcg w/ 200mcg by mouth to equal 225mcg every morning. isosorbide mononitrate 60 mg tablet extended release 24 hr 60 mg PO QAM levothyroxine 200 mcg tablet 200 mcg PO QAM Rx Instructions: Take 200mcg w/ 25mcg by mouth to equal 225mcg every morning. topiramate 100 mg tablet See Rx Instructions .ROUTE .COMPLEX Rx Instructions: Take 100mg by mouth in the morning and 200mg by mouth at bedtime per family and pharmacy 03/25/25 metoprolol tartrate 25 mg tablet 25 mg PO BID Jardiance 25 mg tablet 25 mg PO DAILY Combivent Respimat 20-100 mcg/actuation mist 1 puff INHALATION Q4H Rx Instructions: space evenly during waking hours Krames/Other Patient Handouts: Adjusting to Your Tracheostomy Tube, Cleaning Your Tracheostomy, ED Mucous Plug, Trach Tube Admission Data Admit Date/Time: 03/25/25 13:54 Attending Provider: Patrick Mansfield Admit Provider: Patrick Mansfield Primary Care Provider: Ofe Mcgee Other Providers: Patrick Mansfield; [facility],Home Healthcare
--- NOTE | 2025-03-27 17:59 | Billing Data ---
Date of Service March 27, 2025 Coding Level of Care Code 65589 SUB INP/OBS CARE
[2025-03-27] MEDS: ONDANSETRON INJ 2 MG/ML 2 ML VIAL IV STA (20:30)
[2025-03-28 08:22] LABS: Hematocrit (blood only) 40.7 % (37.0-47.0); Hemoglobin 11.8 g/dl (12.0-16.0); Mean Corpuscular Hemoglobin 26.7 pg (25.0-34.0); Mean Corpuscular Volume 92.1 fL (80.0-100.0); Mean Platelet Volume 9.4 fL (9.4-12.4); Platelet Count 270 K/uL (130-400); RDW Coefficient of Variation 16.1 % (11.5-14.5); RDW Standard Deviation 54.3 fL (36.4-46.3); Red Blood Count 4.42 M/uL (4.20-5.40)
[2025-03-28 08:41] LABS: BUN Creatinine Ratio 27.2 (10-20); Calcium 8.9 mg/dl (8.6-10.3); Creatinine Clr Calc Pharmacy 54.3 ml/min; Potassium 4.1 mmol/L (3.5-5.1)
[2025-03-28] MEDS: POLYETHYLENE (MIRALAX) 17 GM PACK PO SCH (13:40)
[2025-03-28] MEDS: bisacodyL 5 MG TABEC PO ONE (13:40)
--- NOTE | 2025-03-28 17:56 | Hospitalist Progress Note ---
Date of Service March 28, 2025 Assessment & Plan (1) CHF (congestive heart failure): (2) Acute on chronic heart failure with preserved ejection fraction: (3) Obesity hypoventilation syndrome: (4) Morbid obesity with BMI of 60.0-69.9, adult: (5) Chronic kidney disease, stage 3: (6) Insulin-requiring or dependent type II diabetes mellitus: Plan #Acute HF on chronic with PrEF: Doing well overall. Continue current care. Continue to educate on sodium rest riction at discharge #Obesity Hypoventilation syndrome( OHS) - chronic hypercapnic respiratory failurewas recommended for AVAPS about a year ago by pulmonary as an outpatient, somehow this was never followed through withit seems because the patient largely did not want to change her trach. After extensive discussions on the nature of her chronic respiratory failure, she seems more amenable. Discussed with respiratory as well as pulmonaryand we will try to move things forward towards being able to give additional ventilatory assistance at bedtime. #Type 2 diabetes on insulincontinue Jardiance, continue insulin pump, check fingersticks and follow #CKD stage III: Stable Dispo: home after DC. ongoing management of chronic respiratory failure before able to go home - will likely need a lot set up. DVT: Lovenox Code: Full Admission and Anticipated Discharge Date Admission Date: March 25, 2025 Subjective Still feeling somewhat nauseated. No bowel movement since Tuesday. No ab dominal pain. Extensive discussion with patient, later revisited with patient, daughter, and caregiver. Also discussed with pulmonary and respiratory therapy through the day. She expresses a good understanding of her situation with OHS and progressive respiratory failure now, and seems to be willing to consider cuffed tracheostomy and respiratory assistance. Review of Systems Review of Systems: All systems reviewed & are unremarkable except as noted in HPI & below Physical Exam Physical Exam: General she is awake and alert pleasant no distress. HEENT normocephalic atraumatic mucous membranes moist. Breathing unlabored no accessory muscle use good effort. Skin without rashes pallor or icterus. Neuro without focal deficits. Abdomen is soft moderately distended nontender no masses organomegaly. Results & Data Results & Data Vital Signs (Past 12 Hours) Vital Signs Temp Pulse Pulse Pulse Resp BP Pulse Ox 03/28/25 16:38 98.2 F 65 18 136/78 97 03/28/25 15:28 69 03/28/25 11:39 98.1 F 59 L 18 136/75 92 03/28/25 07:50 68 20 96 03/28/25 07:40 98.2 F 67 18 158/88 H 97 03/28/25 07:30 03/28/25 07:25 55 L O2 Del Method O2 Flow Rate FiO2 03/28/25 16:38 Trach Collar 6 03/28/25 15:28 03/28/25 11:39 Trach Collar 6 03/28/25 07:50 Trach Collar 6 28 03/28/25 07:40 Trach Collar 6 03/28/25 07:30 Trach Collar 6 28 03/28/25 07:25 PG Care Time/CCT Total # of Minutes Spent Total Time Spent with Patient: Total time spent is greater than 50% in coordination of care (as documented) at patient's floor/unit and/or counseling patient: Coding Level of Care Code 59000 SUB INP/OBS CARE 3/50MIN Diagnoses CHF (congestive heart failure) I50.9 Heart failure chronicity: acute on chronic Heart failure type: unspecified Acute on chronic heart failure with preserved ejection fraction I50.33 Obesity hypoventilation syndrome E66.2 Morbid obesity with BMI of 60.0-69.9, adult E66.01; Z68.44 Chronic kidney disease, stage 3 N18.30 Insulin-requiring or dependent type II diabetes mellitus E11.9; Z79.4 (1) CHF (congestive heart failure) Heart failure chronicity: acute on chronic Heart failure type: unspecified Qualified Code(s): I50.9 - Heart failure, unspecified
[2025-03-29 04:50] LABS: Allen Test Pos (Pos); Base Excess ABG 6.7 mEq/L (-9-1.8); HCO3 ABG 33 mmol/L (19-24); Oxygen Saturation ABG 95.8 % (90-95); PCO2 ABG 55 mmHg (35-46); PO2 ABG 72 mmHg (80-95); pH ABG 7.39 (7.35-7.45)
--- NOTE | 2025-03-29 12:14 | Procedure Note ---
Procedure Note Date of Service March 29, 2025 Tracheostomy exchange Verbal consent was obtained from the patient. Timeout performed prior to the procedure. Trach ties were undone from the Christophe size 5 mental trach. Christophe trach was removed without issue. A size 6 cuffed Shiley tracheostomy was lubricated. I attempted to insert the size 6 tracheostomy, but met resistance. I then attempted to insert a size 4 cuffed Shiley tracheostomy which went in smoothly and the patient tolerated this well. Will leave the sinus [address] trache[address] in place at this time and trial her on AVAPS tomorrow. [facility] Procedure Codes (Charges) Pulmonary/Thoracic Procedure 1: Pulmonary and Thoracic: 34866 Tracheotomy tube change prior to Fistula Coding CPT Codes Pulmonary/Thoracic - Pulmonary and Thoracic: 75324 Tracheotomy tube change prior to Fistula ([id number]) Additional Codes Date of Service (PG.SURGERY)
--- NOTE | 2025-03-29 12:23 | Pulmonary Consultation ---
Date of Consultation March 29, 2025 Assessment & Plan (1) Chronic hypercapnic respiratory failure: (2) Tracheostomy dependence: (3) Chronic hypoxic respiratory failure, on home oxygen therapy: Plan 69-year-old female who is overtly morbidly obese with a history of RASHAAD/OHS presenting for hospital with recurrent hypercapnic respiratory failure. Patient was agreeable to changing out from her Christophe 5 metal trach to a cuffed Shiley trach in order to aid with ventilation. We were able to successfully exchange the tracheostomy out to a size 4 cuffed Shiley tracheostomy and she tolerated this well. Will leave this trach in today day and see how she is feeling tomorrow and see if she is up for attempting invasive ventilation tomorrow. Until that time, we will leave the cuffed tracheostomy with the cuff down. Should we pursue invasive ventilation, this will need to be done in the ICU setting until we determine optimal settings for her. Repeat ABG tomorrow a.m. Pulmonary will continue to follow along with you. Thank you for the consult. Care coordinated with bedside RN, RT and hospitalist service. History of Present Illness Reason for Consultation: Tracheostomy exchange and management of chronic hypercapnic respiratory failure Attending Physician: Patrick Mansfield DO History of Present Illness 69-year-old female with a history of super morbid obesity, RASHAAD/OHS and chronic hypoxemic respiratory failure who ended up with a tracheostomy in 2007 after a prolonged stay in [place] for respiratory failure. She has a Christophe [address] She uses this along with oxygen via trach collar. She denies any shortness of breath or chest pain currently. She was admitted to the hospital 03/25/2025 due to dyspnea which was thought to be related to diastolic heart failure and possibly atelectasis. ABG 03/26/2025 revealed acute hypercapnic respiratory failure with a pH of 7.32 and a PCO2 of 62. ABG completed this morning revealed a pH of 7.39 and PCO2 of 55. Lengthy discussion was had with the patient regarding transitioning her to a cuffed Shiley tracheostomy in order to aid with ventilation. Patient was agreeable to transitioning to a cuffed Shiley trach in order to be able to use a ventilator when she sleeps. Allergies Allergy/AdvReac Type Severity Reaction Status Date / Time animal dander Allergy Intermediate Sneezing, Unverified 03/25/25 15:27 itchy watery eyes and Difficulty Breathing Penicillins Allergy Intermediate Hives Verified 03/25/25 15:27 tree and shrub pollen Allergy Intermediate Sneezing, Unverified 03/25/25 15:27 itchy watery eyes and Difficulty Breathing amitriptyline Allergy Unknown CAN'T Verified 03/25/25 15:27 REMEMBER doxycycline Allergy Unknown CAN'T Verified 03/25/25 15:27 REMEMBER guaifenesin Allergy Unknown CAN'T Verified 03/25/25 15:27 REMEMBER metformin Allergy Unknown CAN'T Verified 03/25/25 15:27 REMEMBER phenylephrine Allergy Unknown CAN'T Verified 03/25/25 15:27 REMEMBER pseudoephedrine Allergy Unknown CAN'T Verified 03/25/25 15:27 REMEMBER tetracycline Allergy Unknown CAN'T Verified 03/25/25 15:27 REMEMBER venlafaxine [From Effexor] Allergy Unknown CAN'T Verified 03/25/25 15:27 REMEMBER gabapentin AdvReac Intermediate BECOMES Verified 03/25/25 15:27 AGGRESSIVE Home Medications Medication Instructions Recorded Confirmed Type aspirin 81 mg tablet,delayed 81 mg PO QAM #30 tabs 04/06/23 03/25/25 Rx release (Robert Low Dose Aspirin) atorvastatin 40 mg tablet 40 mg PO QPM #30 tabs 04/06/23 03/25/25 Rx magnesium oxide 400 mg PO QAM #30 tabs 04/06/23 03/25/25 Rx multivitamin 1 tab PO QAM #30 tabs 04/06/23 03/25/25 Rx nitroglycerin 0.4 mg sublingual 0.4 mg sublingual DIRECTED PRN 04/06/23 03/25/25 Rx tablet Chest Pain #25 tabs pantoprazole 40 mg tablet,delayed 40 mg PO DAILYBB #30 tabs 04/06/23 03/25/25 Rx release sertraline 50 mg tablet 50 mg PO QAM #30 tabs 04/06/23 03/25/25 Rx spironolactone 25 mg tablet 25 mg PO QAM #30 tabs 04/06/23 03/25/25 Rx blood-glucose meter (OneTouch #1 ea 07/21/23 03/20/25 Rx Ultra2 Meter) pen needle, diabetic 32 gauge x #150 ea 08/26/23 03/20/25 Rx 5/32" (BD Kaitlin 2nd Gen Pen Needle) pen needle, diabetic 32 gauge x #50 ea 08/26/23 03/20/25 Rx 5/32" (BD Kaitlin 2nd Gen Pen Needle) ipratropium 0.5 mg-albuterol 3 mg 3 ml inhalation Q4H PRN COUGHING, 11/25/23 03/25/25 Rx (2.5 mg base)/3 mL nebulization WHEEZING, SHORTNESS OF BREATH #180 soln mL diclofenac sodium 1 % topical gel 4 g EXT QID PRN Pain 01/15/24 03/25/25 History (Voltaren Arthritis Pain) naloxone 4 mg/actuation nasal 4 mg intranasal DIRECTED PRN 01/15/24 03/25/25 History spray (Narcan) OVERDOSE bupropion HCl 100 mg tablet,12 hr See Rx Instructions .Route .COMPLEX 02/03/24 03/25/25 History sustained-release potassium chloride 20 mEq 20 meq PO BID 02/03/24 03/25/25 History tablet,extended release budesonide 0.5 mg/2 mL suspension 0.5 mg (2 mL) NEB BIDR #120 mL 03/02/24 03/25/25 Rx for nebulization diclofenac sodium 75 mg 75 mg PO BID #60 tabs 03/02/24 03/25/25 Rx tablet,delayed release famotidine 20 mg tablet 20 mg PO DAILY PRN heartburn #30 03/02/24 03/25/25 Rx tabs isosorbide mononitrate 60 mg 60 mg PO QAM 06/13/24 03/25/25 History tablet,extended release 24 hr levothyroxine 200 mcg tablet 200 mcg PO QAM 06/13/24 03/25/25 History levothyroxine 25 mcg tablet 25 mcg PO QAM 06/13/24 03/25/25 History metoprolol tartrate 25 mg tablet 25 mg PO BID 06/13/24 03/25/25 History topiramate 100 mg tablet See Rx Instructions .Route .COMPLEX 06/13/24 03/25/25 History insulin aspart U-100 100 unit/mL See Rx Instructions subcut DAILY 08/21/24 03/25/25 Rx subcutaneous solution (Novolog #100 mL U-100 Insulin aspart) blood sugar diagnostic (OneTouch #400 ea 08/27/24 03/20/25 Rx Ultra Test strips) oxycodone 10 mg tablet 10 mg PO BID PRN Pain 09/14/24 03/25/25 History nebulizers #1 ea 01/17/25 03/20/25 Rx torsemide 10 mg tablet 30 mg (3 x 10 mg) PO QAM #90 tabs 03/13/25 03/25/25 Rx empagliflozin 25 mg tablet 25 mg PO DAILY 03/25/25 03/25/25 History (Jardiance) ipratropium 20 mcg-albuterol 100 1 puff inhalation Q4H shortness of 03/25/25 03/25/25 History mcg/actuation mist for inhalation breath (Combivent Respimat) Patient History Medical History New onset atrial flutter Parainfluenza infection Common migraine without aura Congestive heart failure Diabetic retinopathy associated with type 2 diabetes mellitus Hypoglycemia Chronic kidney disease, stage 3b C. difficile diarrhea Acute gout Wound, breast Type 2 diabetes mellitus Right bundle branch block Presence of tracheostomy Morbid obesity Weakness Cor pulmonale CHF (congestive heart failure) Chronic diastolic heart failure cor pulmonale Chronic obstructive pulmonary disease Generalized weakness Fracture of distal end of right femur Hypothyroidism (acquired) Ureterolithiasis Vitamin D deficiency Adjustment disorder with depressed mood Tinea unguium GERD (gastroesophageal reflux disease) Anxiety Coronary artery disease RASHAAD (obstructive sleep apnea) Sepsis Surgical History History of tonsillectomy and adenoidectomy History of cholecystectomy History of appendectomy Family History Mother Coronary heart disease COPD (chronic obstructive pulmonary disease) Father Suicide Hung himself. Pt found him. Unknown Lung cancer Social History Smoking Status: Never smoker Tobacco Type: Cigarettes Second Hand Exposure: No; Do You Dip or Chew Tobacco: No; Hx Alcohol Use: No Hx Substance Use: No Preferred Language: American Communication Ability: Effective Visual Impairment: Limited Hearing Ability: Normal Conservation Engineer Required: Yes Beliefs That Will Affect Care: None marital status: Current Living Situation: Parent Current Living Situation Comment: lives at home with daughter current occupational status: disabled How many Children do You have: 1 Other Information That Helps Us Care for You: No Feels Safe at Home: Yes Safety Concerns: Feels Safe At This Time Diet: regular Diet Comment: Drinks 1 Boost drink supplement in the morning caffeine: Yes (1 coffee daily) Physical Activity Frequency: Does not Exercise Seatbelt Use: always Do you think of yourself as: straight/heterosexual Gender Identity: Female Assistive Devices: Hospital Bed, Lift Chair, Mechanical Lift, Oxygen - Continuous and Other Review of Systems Review of Systems: All systems reviewed & are unremarkable except as noted in HPI & below Physical Exam Physical Exam: Constitutional: Morbidly obese. No apparent distress. Lying in bed. Eyes: Pupils are equal round and reactive to light. Conjunctivae are normal. Anicteric sclera. Ears nose, mouth and throat: Mallampati class 3. Normal posterior oropharynx. Uvula is midline. Neck: Trachea is midline. Visual inspection is normal. Tracheostomy noted. Respiratory: Diminished lung sounds in the bases bilaterally. No wheezes. Occasional coughing. Cardiovascular: Regular rate and rhythm. No murmurs. No edema. Gastrointestinal: Normal bowel sounds, soft, nontender and nondistended. No hepatosplenomegaly noted. Musculoskeletal: No cyanosis. Patient is able to move all extremities. Strength is 5 out of 5 in the upper and lower extremities. Skin: No rashes, warm dry and intact. Neurologic: No obvious focal neurological deficits seen. Psychiatric: Alert and oriented x3 with a euthymic affect. Results & Data Results & Data Vital Signs (Past 12 Hours) Vital Signs Temp Pulse Pulse Resp BP Pulse Ox O2 Del Method 03/29/25 11:18 36.9 C 56 L 18 153/71 H 92 Face Tent 03/29/25 07:28 37.1 C 59 L 18 146/79 H 98 Trach Collar 03/29/25 07:10 60 16 95 Trach Collar 03/29/25 03:45 37.1 C 67 16 136/74 96 Trach Collar O2 Flow Rate FiO2 03/29/25 11:18 6 03/29/25 07:28 6 03/29/25 07:10 6 28 03/29/25 03:45 7 PG Care Time/CCT Total # of Minutes Spent Total Time Spent: 82 Total Time Spent with Patient: Total time spent is greater than 50% in coordination of care (as documented) at patient's floor/unit and/or counseling patient: Coding Level of Care Code 80733 INT INP/OBS CARE MIN Diagnoses Chronic hypercapnic respiratory failure J96.12 Tracheostomy dependence Z93.0 Chronic hypoxic respiratory failure, on home oxygen therapy J96.11; Z99.81
--- NOTE | 2025-03-29 16:19 | Communication Note ---
Date of Service: March 29, 2025 Unfortunately the size 4 Shiley cuffed trach fell out and the Christophe 5 metal trach was reinserted. Patient will need follow-up with ENT as an outpatient to pursue possible dilation of the tracheal stoma to insert a size 6 cuffed Shiley in order to help with invasive ventilation in the future. She is currently well compensated from a pulmonary and hypercapnic perspective and does not have acute needs for invasive ventilation.
--- NOTE | 2025-03-29 18:00 | Hospitalist Progress Note ---
Date of Service March 29, 2025 Assessment & Plan (1) CHF (congestive heart failure): (2) Acute on chronic heart failure with preserved ejection fraction: (3) Obesity hypoventilation syndrome: (4) Morbid obesity with BMI of 60.0-69.9, adult: (5) Chronic kidney disease, stage 3: (6) Insulin-requiring or dependent type II diabetes mellitus: Plan #Acute HF on chronic with PrEF: Doing well overall. Continue current care. Continue to educate on sodium rest riction at discharge. Continue IV Lasix, follow-up basic metabolic panel tomorrow #Obesity Hypoventilation syndrome( OHS) - chronic hypercapnic respiratory failure Working on setting of AVAPSunfortunately trach placement with a cuffed trach did not stay inpulmonary thinks she will probably need to see ENT as an outpatient to dilate her stoma more #Type 2 diabetes on insulincontinue Jardiance, continue insulin pump, check fingersticks and follow #CKD stage III: Stable Dispo: home after DC. ongoing management of chronic respiratory failure before able to go home - will likely need a lot set up. DVT: Lovenox Code: Full Admission and Anticipated Discharge Date Admission Date: March 29, 2025 Supervising Physician Co-Signing Physician Notes combined acute on chronic hypoxic and hypercapnic respiratory failureappears to be due to acute on chronic HFpEF as well as OHS/hypoventilation. Positive urine cultureno notable infectious signs or symptoms. Will either be changing or discontinuing Foleypatient deciding if she wants to have voiding trial now or later in the future type 2 diabetescaregiver noted that her G7 was reading highand therefore patient was probably unwittingly overtreating herself with insulin. We discussed different ways to remedy this in the future, they feel most comfortable with fingersticks. DVT proph - lovenox Subjective feeling okay. Eating a little bit better. Still no bowel movement. Later discussed with pulmonaryinput and assistance greatly appreciated. Review of Systems Review of Systems: All systems reviewed & are unremarkable except as noted in HPI & below Physical Exam Physical Exam: General she is awake and alert pleasant no distress. HEENT normocephalic atraumatic mucous membranes moist. Breathing unlabored no accessory muscle use good effort. Skin without rashes pallor or icterus. Neuro without focal deficits. Abdomen is soft moderately distended nontender no masses organomegaly. Results & Data Results & Data Vital Signs (Past 12 Hours) Vital Signs Temp Pulse Pulse Pulse Resp BP Pulse Ox 03/29/25 15:54 67 03/29/25 15:30 98.6 F 51 L 17 142/74 H 92 03/29/25 11:18 98.4 F 56 L 18 153/71 H 92 03/29/25 08:00 03/29/25 08:00 64 03/29/25 07:28 98.8 F 59 L 18 146/79 H 98 03/29/25 07:10 60 16 95 O2 Del Method O2 Flow Rate FiO2 03/29/25 15:54 03/29/25 15:30 Trach Collar 6 03/29/25 11:18 Face Tent 6 03/29/25 08:00 Trach Collar 03/29/25 08:00 03/29/25 07:28 Trach Collar 6 03/29/25 07:10 Trach Collar 6 28 PG Care Time/CCT Total # of Minutes Spent Total Time Spent with Patient: Total time spent is greater than 50% in coordination of care (as documented) at patient's floor/unit and/or counseling patient: Coding Level of Care Code 64588 SUB INP/OBS CARE 3/50MIN Diagnoses CHF (congestive heart failure) I50.9 Heart failure chronicity: acute on chronic Heart failure type: unspecified Acute on chronic heart failure with preserved ejection fraction I50.33 Obesity hypoventilation syndrome E66.2 Morbid obesity with BMI of 60.0-69.9, adult E66.01; Z68.44 Chronic kidney disease, stage 3 N18.30 Insulin-requiring or dependent type II diabetes mellitus E11.9; Z79.4 (1) CHF (congestive heart failure) Heart failure chronicity: acute on chronic Heart failure type: unspecified Qualified Code(s): I50.9 - Heart failure, unspecified
--- NOTE | 2025-03-30 07:32 | Hospitalist Progress Note ---
Date of Service March 30, 2025 Assessment & Plan (1) CHF (congestive heart failure): (2) Acute on chronic heart failure with preserved ejection fraction: (3) Obesity hypoventilation syndrome: (4) Morbid obesity with BMI of 60.0-69.9, adult: (5) Chronic kidney disease, stage 3: (6) Insulin-requiring or dependent type II diabetes mellitus: Plan #Acute HF on chronic with PrEF: Doing well overall. Continue current care. Continue to educate on sodium restriction at discharge. Continue IV Lasix, follow-up basic metabolic panel tomorrow #Obesity Hypoventilation syndrome( OHS) - chronic hypercapnic respiratory failure Working on setting of AVAPSunfortunately trach placement with a cuffed trach did not stay inpulmonary thinks she will probably need to see ENT as an outpatient to dilate her stoma more #Type 2 diabetes on insulincontinue Jardiance, continue insulin pump, check fingersticks and follow #CKD stage III: Stable combined acute on chronic hypoxic and hypercapnic respiratory failureappears to be due to acute on chronic HFpEF as well as OHS/hypoventilation. Positive urine cultureno notable infectious signs or symptoms. Will either be changing or discontinuing Foleypatient deciding if she wants to have voiding trial now or later in the future type 2 diabetescaregiver noted that her G7 was reading highand therefore patient was probably unwittingly overtreating herself with insulin. We discussed different ways to remedy this in the future, they feel most comfortable with fingersticks. Dispo: home after DC. ongoing management of chronic respiratory failure before able to go home - will likely need a lot set up. DVT: Lovenox Code: Full Admission and Anticipated Discharge Date Admission Date: March 29, 2025 Subjective 03/30/25: 03/29/25: feeling okay. Eating a little bit better. Still no bowel movement. Later discussed with pulmonaryinput and assistance greatly appreciated. Physical Exam Physical Exam: General she is awake and alert pleasant no distress. HEENT normocephalic atraumatic mucous membranes moist. Breathing unlabored no accessory muscle use good effort. Skin without rashes pallor or icterus. Neuro without focal deficits. Abdomen is soft moderately distended nontender no masses organomegaly. Results & Data Results & Data Vital Signs (Past 12 Hours) Vital Signs Temp Pulse Pulse Pulse Resp BP Pulse Ox 03/30/25 07:06 77 03/29/25 23:59 37.0 C 65 20 163/67 H 96 03/29/25 21:00 03/29/25 19:53 71 18 97 03/29/25 19:32 37.3 C 96 H 20 114/71 95 O2 Del Method O2 Flow Rate FiO2 03/30/25 07:06 03/29/25 23:59 Trach Collar 6 03/29/25 21:00 Trach Collar 8 03/29/25 19:53 Trach Collar 6 28 03/29/25 19:32 Trach Collar 6 (1) CHF (congestive heart failure) Heart failure chronicity: acute on chronic Heart failure type: unspecified Qualified Code(s): I50.9 - Heart failure, unspecified
[2025-03-30 07:44] VITALS: RESP 18
[2025-03-30 08:00] VITALS: BP 155/79; PULSE 69; TEMP 98.1; O2SAT 97
[2025-03-30 08:11] LABS: Calcium 9.1 mg/dl (8.6-10.3); Creatinine Clr Calc Pharmacy 54.1 ml/min; Potassium 3.7 mmol/L (3.5-5.1)
[2025-03-30] MEDS: PNEUMOCOCCAL VACCINE (PCV20) 20-VAL CONJ-DIP CRM/PF 0.5 ML SYR IM ONE (09:58)
--- NOTE | 2025-03-30 12:54 | Discharge Summary ---
Date of Service March 30, 2025 Admission HPI Per Admitting Provider patient is a very pleasant 69-year-old female well-known to me. She notes that she was feeling well until maybe in the last 2 3 days once she started feeling more short of breath. During that time she was feeling more short of breath, no fevers chills or sweats, thick predominantly white sputum. Her caregiver feels that she probably has fluid overload. Caregiver also wondered about infection because her tracheostomy had not been changed and had a degree of exudative material on itthey changed the trach and the site has since remained more clean. Hard to get much of a diet recall from the patient, as she mostly relates that she has not had an appetite the last 2 days or so once she started feeling more short of breathbut it is hard to get a recall prior to that. Review of systems otherwise negative except for as above. Admission Exam Per Admitting Provider In general she is awake alert oriented pleasant mildly dyspneic. HEENT normocephalic atraumatic mucous membranes moist. Trach site with mild thin exudate no erythema no tracking erythema nontender, trach itself seems patent with good airflow. Cardio is distant. Lungs show bibasilar rales and diminished air entry, somewhat difficult exam. Maybe mild accessory muscle use mild respiratory distress. Skin without rashes pallor or icterus. Neuro without focal deficits. She is immobile as far as ability to ambulatethis is chronic. Chronic diffuse changes with consistency of venous stasis. Labs and diagnostics noted, chest x-ray noted. Principal Diagnosis CHF/OHS Discharge Exam Gen: NAD, alert, interactive HEENT: NCAT, trach collar intact Resp:Non-labored, no accessory muscle use, coarse lung sounds in bases CV:RRR, normal S1/S2, no M/R/G Abd: Soft, moderate distension, no TTP, normoactive bowels, no masses Extr: 2+ dp bilaterally, trace pitting edema Skin: No rashes lesions or erythema on visible/exposed skin Discharge Data Allergies Allergy/AdvReac Type Severity Reaction Status Date / Time animal dander Allergy Intermediate Sneezing, Unverified 03/25/25 15:27 itchy watery eyes and Difficulty Breathing Penicillins Allergy Intermediate Hives Verified 03/25/25 15:27 tree and shrub pollen Allergy Intermediate Sneezing, Unverified 03/25/25 15:27 itchy watery eyes and Difficulty Breathing amitriptyline Allergy Unknown CAN'T Verified 03/25/25 15:27 REMEMBER doxycycline Allergy Unknown CAN'T Verified 03/25/25 15:27 REMEMBER guaifenesin Allergy Unknown CAN'T Verified 03/25/25 15:27 REMEMBER metformin Allergy Unknown CAN'T Verified 03/25/25 15:27 REMEMBER phenylephrine Allergy Unknown CAN'T Verified 03/25/25 15:27 REMEMBER pseudoephedrine Allergy Unknown CAN'T Verified 03/25/25 15:27 REMEMBER tetracycline Allergy Unknown CAN'T Verified 03/25/25 15:27 REMEMBER venlafaxine [From Effexor] Allergy Unknown CAN'T Verified 03/25/25 15:27 REMEMBER gabapentin AdvReac Intermediate BECOMES Verified 03/25/25 15:27 AGGRESSIVE Consultations 03/25/25 13:31 ED Decision to Admit Stat 03/28/25 17:50 Consult Pulmonology Routine Hospital Course (1) CHF (congestive heart failure): (2) Acute on chronic heart failure with preserved ejection fraction: (3) Obesity hypoventilation syndrome: (4) Morbid obesity with BMI of 60.0-69.9, adult: (5) Chronic kidney disease, stage 3: (6) Insulin-requiring or dependent type II diabetes mellitus: Wesley Sherman is a 69F w/ PMH of chronic hypoxic respiratory failure w/ tracheostomy dependence, CHF, OHS, ambulatory dysfunction, insulin dependent T2DM, hypothyroidism, CKD3, HLD, HTN, iron deficiency, memory loss, and MRSA who presented for respiratory failure on 03/25. #Acute HF on chronic with PrEF: Doing well overall - EF 60-65% - Diuresis inpatient w/ Lasix 40 IV daily - Ongoing education on sodium restriction - Can return to home torsemide 30 mg PO Q AM upon discharge Home Torsemide 30 mg dosing is slightly less than inpatient IV Lasix 40 mg dosing Patient has diuresed well inpatient (net negative 2L in last 24h) Would continue to monitor fluid status as out patient and adjust PO diuresis PRN #Obesity Hypoventilation syndrome( OHS) - Chronic hypercapnic respiratory failure - Attempted placement of cuffed tach, but did not stay in Pulmonary following, appreciate recommendations Believes patient will likely require ENT as outpatient to dilate her trach stoma Working on setting of AVAPS, patient to continue using VPAP at night Required 6-8 L of oxygen support inpatient, encouraged to continue use at home #Type 2 diabetes on insulin - G7 device reading high, and thus was receiving higher doses of insulin than required - Patient elected to do finger stick BSGs rather than replace devices, as she is most comfortable with this Continue Jardiance, continue insulin pump, check fingersticks and follow #CKD stage III: - Stable #Positive Urine Culture - No identified infection, asymptomatic - Patient elects to discharge with Payne - Will anticipate voiding trial at later date Dispo: home after DC. ongoing management of chronic respiratory failure, will require ENT evaluation for dilation of cuff and close follow up with PCP DVT: Lovenox inpatient, dc on discharge Code: Full Total Time Total Time Spent Total Time Spent (In Minutes): <30 Discharge Plan Discharge Items Patient Disposition: Home - Self-Care Reason For Visit: CHF EXACERBATION Discharge Diagnosis: Hypercapnia d/t chronic OHS, despite on tracheostomy. Acute CHF Condition on Discharge: Fair Activity: Resume your previous activity Non-emergency contact: Primary Care Provider and [place] Call non-emergency contact if: your pain is worsening Follow-up/Referrals: Ofe Mcgee MD [Primary Care Provider] - Gila Shoemaker MD [Resident] - Diet: Heart Healthy Addtl Attending Provider Instructions: You were admitted to the hospital for increased shortness of breath due to worsening of your heart failure in addition to your ventilation issue secondary to obesity. You were treated with intravenous Lasix which improved your symptoms significantly. We reviewed your notes from lung doctors that they were recommending you to use VPAP during night time at least, which would definitely help you prevent occasional breathing issues you are having currently. Also as you needed oxygen from 6-8 L during admission, please continue using oxygen at home. You will need to follow up with ENT (otolaryngology) as an outpatient, they will help prepare your stoma for a cuffed trach, but will need to see you outside of the hospital to help with this. A discharge summary will be sent to your primary care physician to ensure continuity of care. You previously followed w/ Dr. Mcgee, a referral for a follow up appointment has been made to her office. Please bring this discharge summary with you to your next office appointment so that your provider can review it at that time. Medications: Your medication list has been reviewed and reconciled upon discharge to ensure accuracy and continuity of care. An updated list of all your medications is included with your hospital discharge paperwork. Please review this list closely and make note of any changes to your medications. 1. NO CHANGE IN MEDICINE NOW. CONTINUE HOME MEDICATION. Follow up appointments: - Make a follow up appointment with your PCP within the next week. It is very important that you follow up with them shortly after discharge from the hospital. - Keep all of your follow up appointments as already scheduled. If you cannot make an appointment, notify your provider. CONTACT YOUR PRIMARY CARE PROVIDER if you experience any of the following: - Difficulty following your treatment plan - Difficulty taking any of your medications CALL 911 OR GO TO THE EMERGENCY DEPARTMENT if you experience any of the following -Related to reason for admission, increased difficulty breathing -Sudden, severe abdominal pain or nausea/vomiting -Severe chest pain or chest pain that radiates to your jaw or arm -Sudden, severe shortness of breath or difficulty breathing Pending Studies at Discharge: No Stand-Alone Forms: My [facility], Smoking Cessation Medications and DC Order Prescriptions: Continued (DME) blood-glucose meter [OneTouch Ultra2 Meter] Mis See Rx Instructions .Route Qty: 1 0RF Rx Instructions: As directed insulin aspart U-100 [Novolog U-100 Insulin aspart] 100 unit/mL solution See Rx Instructions subcut DAILY Qty: 100 4RF Rx Instructions: For insulin pump 300 units a day. (DME) nebulizers [facility] [place] See Rx Instructions .Route Qty: 1 0RF Rx Instructions: PLEASE REPLACE COMPRESSOR; PREVIOUS ONE BROKEN BEYOND REPAIR (DME) pen needle, diabetic [BD Kaitlin 2nd Gen Pen Needle] 32 gauge x 5/32" needle See Rx Instructions miscellaneous .MEDSUPPLY Qty: 50 0RF Rx Instructions: As directed (DME) pen needle, diabetic [BD Kaitlin 2nd Gen Pen Needle] 32 gauge x 5/32" needle See Rx Instructions miscellaneous .MEDSUPPLY Qty: 150 5RF Rx Instructions: change new pen 5x a day ipratropium-albuterol 0.5 mg-3 mg(2.5 mg base)/3 mL solution for nebulization 3 ml INHALATION Q4H PRN (Reason: COUGHING, WHEEZING, SHORTNESS OF BREATH) Qty: 180 4RF (DME) OneTouch Ultra Test Strip See Rx Instructions .Route Qty: 400 3RF Rx Instructions: As directed four times per day to monitor blood glucose multivitamin Tablet 1 tab PO QAM Qty: 30 1RF atorvastatin 40 mg tablet 40 mg PO QPM Qty: 30 1RF aspirin [Robert Low Dose Aspirin] 81 mg Tablet,Delayed Release (Dr/Ec) 81 mg PO QAM Qty: 30 1RF spironolactone 25 mg Tablet 25 mg PO QAM Qty: 30 1RF pantoprazole 40 mg Tablet,Delayed Release (Dr/Ec) 40 mg PO DAILYBB Qty: 30 1RF nitroglycerin 0.4 mg tablet, sublingual 0.4 mg SL DIRECTED PRN (Reason: Chest Pain) Qty: 25 0RF sertraline 50 mg Tablet 50 mg PO QAM Qty: 30 1RF magnesium oxide 400 mg magnesium Tablet 400 mg PO QAM Qty: 30 1RF diclofenac sodium [Voltaren Arthritis Pain] 1 % gel 4 g EXT QID PRN (Reason: Pain) naloxone [Narcan] 4 mg/actuation spray,non-aerosol 4 mg INTRANASAL DIRECTED PRN (Reason: OVERDOSE) bupropion HCl 100 mg tablet sustained-release 12 hr See Rx Instructions .ROUTE .COMPLEX Rx Instructions: Take 100mg by mouth in the morning and 200mg by mouth at bedtime potassium chloride 20 mEq tablet extended release 20 meq PO BID diclofenac sodium 75 mg Tablet,Delayed Release (Dr/Ec) 75 mg PO BID Qty: 60 0RF famotidine 20 mg Tablet 20 mg PO DAILY PRN (Reason: heartburn) Qty: 30 0RF budesonide 0.5 mg/2 mL Suspension For Nebulization 0.5 mg NEB BIDR Qty: 120 0RF oxycodone 10 mg tablet 10 mg PO BID PRN (Reason: Pain) Rx Instructions: filled 09/07 30 day supply torsemide 10 mg tablet 30 mg PO QAM Qty: 90 1RF levothyroxine 25 mcg tablet 25 mcg PO QAM Rx Instructions: Take 25mcg w/ 200mcg by mouth to equal 225mcg every morning. isosorbide mononitrate 60 mg tablet extended release 24 hr 60 mg PO QAM levothyroxine 200 mcg tablet 200 mcg PO QAM Rx Instructions: Take 200mcg w/ 25mcg by mouth to equal 225mcg every morning. topiramate 100 mg tablet See Rx Instructions .ROUTE .COMPLEX Rx Instructions: Take 100mg by mouth in the morning and 200mg by mouth at bedtime per family and pharmacy 03/25/25 metoprolol tartrate 25 mg tablet 25 mg PO BID Jardiance 25 mg tablet 25 mg PO DAILY Combivent Respimat 20-100 mcg/actuation mist 1 puff INHALATION Q4H Rx Instructions: space evenly during waking hours Discharge Orders: Discharge Order (Routine); Ordered 03/30/25 Ordered By: Ghislaine Delgado/Other Patient Handouts: Adjusting to Your Tracheostomy Tube, Cleaning Your Tracheostomy, ED Mucous Plug, Trach Tube Admission Data Admit Date/Time: 03/29/25 07:49 Attending Provider: Patrick Mansfield Admit Provider: Patrick Mansfield Primary Care Provider: Ofe Mcgee Other Providers: Patrick Mansfield; [facility]; Kirk Smith Other Interventions: Discharge Summary Assessment (RN) Last Done: 03/30/25 14:39 Supervising Physician Co-Signing Physician Notes I personally examined the patient and verified all pappas points of history and exam, discussed case, and agree with decision making with Dr Fleming feeling ok feels good to go home, discussed follow up steps. vitals noted nad heent nc at mmm breathing unlabored no accessory muscles good effort combined acute on chronic hypoxic and hypercapnic respiratory failureappears to be due to acute on chronic HFpEF as well as OHS/hypoventilation. Positive urine cultureno notable infectious signs or symptoms. voiding trial as outpt. type 2 diabetescaregiver noted that her G7 was reading highand therefore patient was probably unwittingly overtreating herself with insulin. We discussed different ways to remedy this in the future, they feel most comfortable with fingersticks. DVT proph - lovenox Resident Activity Tracking Resident Involvement: Resident Care Provided Care Provided: Adult Hospital Medicine
--- NOTE | 2025-03-30 14:07 | Pulmonology Progress Note ---
Date of Service March 30, 2025 Assessment & Plan (1) Chronic hypercapnic respiratory failure: (2) Tracheostomy dependence: (3) Chronic hypoxic respiratory failure, on home oxygen therapy: Plan 69-year-old female who is overtly morbidly obese with a history of RASHAAD/OHS presenting for hospital with recurrent hypercapnic respiratory failure. Unfortunately the size 4 Shiley cuffed tracheostomy was too small and fell out of the patient's airway. Christophe trach was reinserted yesterday. Size 6 cuffed Shiley was too big for her stoma and her stoma would need to be dilated in order to fit a larger tracheostomy to facilitate invasive ventilation. She can discuss this with her outpatient ENT physician if needed. She does have chronic hypercapnic respiratory failure and is at risk for further respiratory failure in the future given her obesity hypoventilation syndrome. She will need follow-up with her outpatient car unloader, Dr. Duarte. Admission and Anticipated Discharge Date Admission Date: March 29, 2025 Subjective Patient eager to go home today. No issues overnight. Breathing well. Denies any chest pain or shortness of breath. Review of Systems Review of Systems: All systems reviewed & are unremarkable except as noted in HPI & below Physical Exam Physical Exam: Constitutional: Morbidly obese. No apparent distress. Lying in bed. Eyes: Pupils are equal round and reactive to light. Conjunctivae are normal. Anicteric sclera. Ears nose, mouth and throat: Mallampati class 3. Normal posterior oropharynx. Uvula is midline. Neck: Trachea is midline. Visual inspection is normal. Tracheostomy noted. Respiratory: Diminished lung sounds in the bases bilaterally. No wheezes. Occasional coughing. Cardiovascular: Regular rate and rhythm. No murmurs. No edema. Gastrointestinal: Normal bowel sounds, soft, nontender and nondistended. No hepatosplenomegaly noted. Musculoskeletal: No cyanosis. Patient is able to move all extremities. Strength is 5 out of 5 in the upper and lower extremities. Skin: No rashes, warm dry and intact. Neurologic: No obvious focal neurological deficits seen. Psychiatric: Alert and oriented x3 with a euthymic affect. Results & Data Results & Data Vital Signs (Past 12 Hours) Vital Signs Temp Pulse Pulse Resp BP Pulse Ox O2 Del Method 03/30/25 09:45 Trach Collar 03/30/25 07:59 36.7 C 69 18 155/79 H 97 Trach Collar 03/30/25 07:43 63 18 96 Trach Collar 03/30/25 07:06 77 O2 Flow Rate FiO2 03/30/25 09:45 8 03/30/25 07:59 9 03/30/25 07:43 30 03/30/25 07:06 PG Care Time/CCT Total # of Minutes Spent Total Time Spent with Patient: Total time spent is greater than 50% in coordination of care (as documented) at patient's floor/unit and/or counseling patient: Coding Level of Care Code 01479 SUB INP/OBS CARE 2/35MIN Diagnoses Chronic hypercapnic respiratory failure J96.12 Tracheostomy dependence Z93.0 Chronic hypoxic respiratory failure, on home oxygen therapy J96.11; Z99.81
--- NOTE | 2025-03-30 17:14 | Billing Data ---
Date of Service March 30, 2025 Coding Level of Care Code 24501 IN/OBS DISCH 30 MIN/LESS
== END 2025-03-30 15:56 | disposition home health service (06) | DRG 291 ==
LOC: 3E 11:43 → EDINP 11:43 → ED 11:43 → 2W 15:59

== ENCOUNTER 2025-05-13 12:08 | Inpatient (IN) ==
--- NOTE | 2025-05-13 12:11 | Emergency Department Note ---
Impression & Plan Chest pain, Hyperglycemia, Morbid obesity, Tracheostomy in place ED Provider Note NAME: ANN JACKSON AGE: 69 SEX: F : 1955 ARRIVES VIA: Ambulance INFORMANT: Patient ED PROVIDER(S): Patrick Barrera DO CHIEF COMPLAINT: Chest pain HPI: Patient is a 69-year-old female who presents to the ER for chest pain. This started prior to arrival. It is midsternal and felt like a heaviness. Radiates up to her jaw. She had shortness of breath with it. She notes this felt like her previous heart attack. Pain has resolved after 2 nitro. She was also given aspirin prior to arrival. She is asymptomatic at this time. She does admit to a mild headache which she has had for the past 2 weeks. No fevers or neck pain. No belly pain. No nausea, vomiting, or diarrhea. No dysuria, urgency, or frequency. No other exacerbating or remitting factors. ADDITIONAL HISTORY OBTAINED: Subscription Clerk at bedside also provides additional history notes that she has had a headache off and on for the past several weeks and requested imaging. Chronic Medical/Social Conditions Affecting Care: Per HPI PAST MEDICAL HISTORY:See Below PAST SURGICAL HISTORY:See Below FAMILY HISTORY:See Below SOCIAL HISTORY:See Below HOME MEDICATIONS:See Below ALLERGIES:See Below VITALS:See Below PHYSICAL EXAMINATION: GENERAL: Sitting up in bed, alert, morbidly obese with trach in place EYE EXAM: normal conjunctiva. PERRL and EOM's grossly intact. OROPHARYNX: no exudate, no erythema, lips, buccal mucosa, and tongue normal and mucous membranes are moist NECK: supple, no nuchal rigidity, no adenopathy, non-tender LUNGS: Diminished bilaterally. Normal chest wall mechanics HEART: no murmurs, S1 normal and S2 normal ABDOMEN: abdomen soft, non-tender, normo-active bowel sounds, no masses, no rebound or guarding. UPPER EXTREMITIES: upper extremities are grossly normal. LOWER EXTREMITIES: No pitting edema. Calves are equal bilaterally NEURO EXAM: Normal sensorium, cranial nerves II-XII grossly intact, normal speech, no gross weakness of arms, no gross weakness of legs. MEDICAL DECISION MAKING: Patient is a 69-year-old female ORBIT Redd obese with tracheostomy in place who presents to the ER for chest pain, shortness of breath and jaw pain which resolved after nitro. She also was given aspirin. Currently has no complaints. IV was established and blood work was obtained. Labs showed no significant leukocytosis or anemia. BMP was fairly reassuring with a creatinine 1.57. Glucose mildly elevated at 146. LFTs and bilirubin was unremarkable. Troponin was normal. Lipase was normal. CT head was negative. Chest x-ray was clean. Patient's EKG was reassuring. Discussed case with the hospitalist for further evaluation management treatment as she notes this felt like her previous [place]. Consults/Care Managements Discussions: Per [facility] Triage Nursing notes reviewed. Limited review of prior medical records performed Vital Signs: reviewed and remarkable for no significant abnormalities Differential diagnosis: Cardiac ischemia, aortic dissection, pulmonary embolism, pneumothorax, pneumonia, pericarditis, myocarditis, esophageal rupture, GERD, cholecystitis, pancreatitis, musculoskeletal, as well as other pathologies. ER treatment provided: See below Diagnostics interpreted by me include EKG and cardiac monitoring as listed below: -Cardiac Monitoring: An order was placed for continuous cardiac monitoring. The monitor shows a rate of 75 with sinus rhythm. -ECG: Sinus rhythm rate of 75 Left axis PVCs QTc 473 -Laboratory studies:Interpreted by me as stated above in MDM and shown below. Imaging studies: Xrays: As interpreted by me: Portable AP upright 1 view of the chest shows no focal infiltrate CTs show: CT head was negative per radiology Procedures:none Critical Care: None Past Med/Surg History Problem List Morbid obesity (Acute) Hyperglycemia (Acute) Chest pain (Acute) Nephrolithiasis (Chronic) Payne catheter in place (Chronic) Chronic hypoxic respiratory failure, on home oxygen therapy Tracheostomy dependence Chronic hypercapnic respiratory failure Leukocytosis (Acute) Vomiting (Acute) Elevated brain natriuretic peptide (BNP) level (Acute) Elevated troponin (Acute) CHF (congestive heart failure) (Acute) Respiratory acidosis (Acute) Obesity hypoventilation syndrome (Acute) Tracheostomy in place (Acute) Ambulatory dysfunction (Acute) Skin ulcer of groin, limited to breakdown of skin Morbid obesity with BMI of 60.0-69.9, adult Insulin-requiring or dependent type II diabetes mellitus Hypothyroidism Physical deconditioning Chronic kidney disease, stage 3 Dyslipidemia, goal LDL below 70 HTN, goal below 130/80 Chronic pain Iron deficiency Chronic hypoxic respiratory failure Diabetic nephropathy Seborrhea Back pain Open wound Lesion of left makah kidney (Chronic) Hypersomnia with sleep apnea (Acute) Memory loss (Acute) MRSA (methicillin resistant staph aureus) culture positive (Chronic) "sputum 11/2015" History of hysterectomy (Chronic) Medical History Acute on chronic heart failure with preserved ejection fraction Acute respiratory acidosis Acute respiratory failure with hypoxia New onset atrial flutter Parainfluenza infection Common migraine without aura Congestive heart failure Diabetic retinopathy associated with type 2 diabetes mellitus Hypoglycemia Chronic kidney disease, stage 3b C. difficile diarrhea Acute gout Wound, breast Type 2 diabetes mellitus Right bundle branch block Presence of tracheostomy Morbid obesity Weakness Cor pulmonale CHF (congestive heart failure) Chronic diastolic heart failure cor pulmonale Chronic obstructive pulmonary disease Generalized weakness Fracture of distal end of right femur Hypothyroidism (acquired) Ureterolithiasis Vitamin D deficiency Adjustment disorder with depressed mood Tinea unguium GERD (gastroesophageal reflux disease) Anxiety Coronary artery disease RASHAAD (obstructive sleep apnea) Sepsis Surgical History History of tonsillectomy and adenoidectomy History of cholecystectomy History of appendectomy Family History Mother Coronary heart disease COPD (chronic obstructive pulmonary disease) Father Suicide Hung himself. Pt found him. Unknown Lung cancer Social History Smoking Status: Never smoker Tobacco Type: Cigarettes Second Hand Exposure: No; Do You Dip or Chew Tobacco: No; Hx Alcohol Use: No Hx Substance Use: No Preferred Language: Turkmen Communication Ability: Effective Visual Impairment: Limited Hearing Ability: Normal Price Changer Required: No Beliefs That Will Affect Care: None marital status: Current Living Situation: Family Current Living Situation Comment: lives with daughter current occupational status: disabled How many Children do You have: 1 Other Information That Helps Us Care for You: No Feels Safe at Home: Yes Safety Concerns: Feels Safe At This Time Diet: regular Diet Comment: Drinks 1 Boost drink supplement in the morning caffeine: Yes (1 coffee daily) Physical Activity Frequency: Does not Exercise Seatbelt Use: always Do you think of yourself as: straight/heterosexual Gender Identity: Female Assistive Devices: Glasses and Oxygen - at Night Allergies Allergies Allergy/AdvReac Type Severity Reaction Status Date / Time animal dander Allergy Intermediate Sneezing, Unverified 03/25/25 15:27 itchy watery eyes and Difficulty Breathing Penicillins Allergy Intermediate Hives Verified 03/25/25 15:27 tree and shrub pollen Allergy Intermediate Sneezing, Unverified 03/25/25 15:27 itchy watery eyes and Difficulty Breathing amitriptyline Allergy Unknown CAN'T Verified 03/25/25 15:27 REMEMBER doxycycline Allergy Unknown CAN'T Verified 03/25/25 15:27 REMEMBER guaifenesin Allergy Unknown CAN'T Verified 03/25/25 15:27 REMEMBER metformin Allergy Unknown CAN'T Verified 03/25/25 15:27 REMEMBER phenylephrine Allergy Unknown CAN'T Verified 03/25/25 15:27 REMEMBER pseudoephedrine Allergy Unknown CAN'T Verified 03/25/25 15:27 REMEMBER tetracycline Allergy Unknown CAN'T Verified 03/25/25 15:27 REMEMBER venlafaxine [From Effexor] Allergy Unknown CAN'T Verified 03/25/25 15:27 REMEMBER gabapentin AdvReac Intermediate BECOMES Verified 03/25/25 15:27 AGGRESSIVE Home Meds Home Medications Medication Instructions Recorded Confirmed diclofenac sodium 1 % topical gel 4 g EXT QID PRN Pain 01/15/24 03/25/25 (Voltaren Arthritis Pain) naloxone 4 mg/actuation nasal 4 mg intranasal DIRECTED PRN 01/15/24 03/25/25 spray (Narcan) OVERDOSE bupropion HCl 100 mg tablet,12 hr See Rx Instructions .Route .COMPLEX 02/03/24 03/25/25 sustained-release potassium chloride 20 mEq 20 meq PO BID 02/03/24 03/25/25 tablet,extended release isosorbide mononitrate 60 mg 60 mg PO QAM 06/13/24 03/25/25 tablet,extended release 24 hr levothyroxine 200 mcg tablet 200 mcg PO QAM 06/13/24 03/25/25 levothyroxine 25 mcg tablet 25 mcg PO QAM 06/13/24 03/25/25 metoprolol tartrate 25 mg tablet 25 mg PO BID 06/13/24 03/25/25 topiramate 100 mg tablet See Rx Instructions .Route .COMPLEX 06/13/24 03/25/25 oxycodone 10 mg tablet 10 mg PO BID PRN Pain 09/14/24 03/25/25 empagliflozin 25 mg tablet 25 mg PO DAILY 03/25/25 03/25/25 (Jardiance) ipratropium 20 mcg-albuterol 100 1 puff inhalation Q4H shortness of 03/25/25 03/25/25 mcg/actuation mist for inhalation breath (Combivent Respimat) folic acid 1 mg tablet 1 mg PO DAILY 05/13/25 montelukast 10 mg tablet 10 mg PO DAILY 05/13/25 Previous Rx's Medication Instructions Recorded aspirin 81 mg tablet,delayed 81 mg PO QAM #30 tabs 04/06/23 release (Robert Low Dose Aspirin) atorvastatin 40 mg tablet 40 mg PO QPM #30 tabs 04/06/23 magnesium oxide 400 mg PO QAM #30 tabs 04/06/23 multivitamin 1 tab PO QAM #30 tabs 04/06/23 nitroglycerin 0.4 mg sublingual 0.4 mg sublingual DIRECTED PRN 04/06/23 tablet Chest Pain #25 tabs pantoprazole 40 mg tablet,delayed 40 mg PO DAILYBB #30 tabs 04/06/23 release sertraline 50 mg tablet 50 mg PO QAM #30 tabs 04/06/23 spironolactone 25 mg tablet 25 mg PO QAM #30 tabs 04/06/23 blood-glucose meter (OneTouch #1 ea 07/21/23 Ultra2 Meter) pen needle, diabetic 32 gauge x #150 ea 08/26/23" (BD Kaitlin 2nd Gen Pen Needle) pen needle, diabetic 32 gauge x #50 ea 08/26/23" (BD Kaitlin 2nd Gen Pen Needle) ipratropium 0.5 mg-albuterol 3 mg 3 ml inhalation Q4H PRN COUGHING, 11/25/23 (2.5 mg base)/3 mL nebulization WHEEZING, SHORTNESS OF BREATH #180 soln mL budesonide 0.5 mg/2 mL suspension 0.5 mg (2 mL) NEB BIDR #120 mL 03/02/24 for nebulization diclofenac sodium 75 mg 75 mg PO BID #60 tabs 03/02/24 tablet,delayed release famotidine 20 mg tablet 20 mg PO DAILY PRN heartburn #30 04/12/24 tabs insulin aspart U-100 100 unit/mL See Rx Instructions subcut DAILY 08/21/24 subcutaneous solution (Novolog #100 mL U-100 Insulin aspart) blood sugar diagnostic (OneTouch #400 ea 08/27/24 Ultra Test strips) nebulizers #1 ea 01/17/25 torsemide 10 mg tablet 30 mg (3 x 10 mg) PO QAM #90 tabs 03/13/25 Results & Data (ED) Vital Signs Vital Signs - 24 hr 05/13/25 12:18 05/13/25 12:18 05/13/25 12:18 Temperature 36.7 C Temperature Source Oral Pulse Rate 66 Pulse Rate [Apical] Respiratory Rate 22 Respiratory Effort / Characteristics Accessory Muscle Use Non-Labored Spontaneous Blood Pressure 146/77 H Blood Pressure [Right Arm] Blood Pressure Mean 100 Blood Pressure Mean [Right Arm] Blood Pressure Position Lying Blood Pressure Position [Right Arm] Pulse Oximetry 90 96 Oxygen Delivery Method Room Air Room Air Trach Collar Oxygen Flow Rate 5 Sepsis Recent Fever Within 48 Hours No Sepsis New/Unexplained Change in Mental Status No Sepsis Action Taken by Nursing No Action Required Oxygen Flow Rate - Titration 0 Pulse Oximetry Post Tiitration 90 05/13/25 12:18 05/13/25 12:18 05/13/25 12:35 Temperature Temperature Source Pulse Rate 66 71 Pulse Rate [Apical] 66 Respiratory Rate 22 22 Respiratory Effort / Characteristics Spontaneous Blood Pressure Blood Pressure [Right Arm] 149/77 H Blood Pressure Mean Blood Pressure Mean [Right Arm] 101 Blood Pressure Position Blood Pressure Position [Right Arm] Lying Pulse Oximetry 90 90 Oxygen Delivery Method Room Air Room Air Oxygen Flow Rate Sepsis Recent Fever Within 48 Hours Sepsis New/Unexplained Change in Mental Status Sepsis Action Taken by Nursing Oxygen Flow Rate - Titration Pulse Oximetry Post Tiitration 05/13/25 13:28 Temperature Temperature Source Pulse Rate Pulse Rate [Apical] Respiratory Rate Respiratory Effort / Characteristics Blood Pressure Blood Pressure [Right Arm] Blood Pressure Mean Blood Pressure Mean [Right Arm] Blood Pressure Position Blood Pressure Position [Right Arm] Pulse Oximetry 86 L Oxygen Delivery Method Trach Collar Oxygen Flow Rate 0 Sepsis Recent Fever Within 48 Hours Sepsis New/Unexplained Change in Mental Status Sepsis Action Taken by Nursing Oxygen Flow Rate - Titration 2 Pulse Oximetry Post Tiitration 92 Laboratory Data 05/13/25 12:18 05/13/25 12:18 Lab Results 05/13/25 Range/Units 12:18 WBC 8.28 (4.8-10.8) K/ul RBC 4.33 (4.20-5.40) M/uL Hgb 12.1 (12.0-16.0) g/dl Hct 41.0 (37.0-47.0) % MCV 94.7 (80.0-100.0) fL MCH 27.9 (25.0-34.0) pg MCHC 29.5 L (32.0-36.0) g/dL RDW Std Deviation 55.7 H (36.4-46.3) fL RDW Coeff of Amee 16.2 H (11.5-14.5) % Plt Count 239 (130-400) K/uL MPV 9.8 (9.4-12.4) fL Immature Gran % (Auto) 1.4 % Neut % (Auto) 71.2 % Lymph % (Auto) 15.7 % Bonner % (Auto) 7.1 % Eos % (Auto) 4.1 % Baso % (Auto) 0.5 % Neut # (Auto) 5.89 (1.40-6.50) K/uL Lymph # (Auto) 1.30 (1.20-3.40) K/uL Bonner # (Auto) 0.59 (0.11-0.59) K/uL Eos # (Auto) 0.34 (0.00-0.50) K/uL Baso # (Auto) 0.04 (0.00-0.20) K/uL Immature Gran # (Auto) 0.12 (0.01-0.20) K/uL Sodium 138 (136-145) mmol/L Potassium 4.4 (3.5-5.1) mmol/L Chloride 102 (98-107) mmol/L Carbon Dioxide 30 (21-32) mmol/L Anion Gap 6 (3-11) BUN 27 H (6-23) mg/dl Creatinine 1.57 H (0.6-1.2) mg/dl Est Cr Clr Drug Dosing Not Reportable eGFR 35.71 BUN/Creatinine Ratio 17.2 (10-20) Glucose 146 H (70-99(Fasting)) mg/dl Calcium 8.8 (8.6-10.3) mg/dl Total Bilirubin 0.3 (0.2-1.0) mg/dl AST 15 (13-39) U/L ALT 18 (7-52) U/L Alkaline Phosphatase 80 (34-104) U/L Troponin I High Sens 6.2 (0-14) pg/ml Total Protein 7.4 (6.0-8.3) gm/dl Albumin 3.5 (3.4-5.0) gm/dl Globulin 3.9 (2.5-4.0) gm/dl Albumin/Globulin Ratio 0.9 (0.9-2) Lipase 25 (11-82) U/L Administered Medications Enoxaparin Sodium (Enoxaparin Inj 40 Mg/0.4 Ml Syr) 40 mg SQ Q24H ASIYA Stop: 06/12/25 15:59 Last Admin: 05/13/25 16:34 Dose: 40 mg Documented By: ASA Insulin Aspart (Insulin Aspart Per Unit Charge) 0 units SC ACHS ASIYA Stop: 06/12/25 17:29 Last Admin: 05/13/25 17:42 Dose: 4 units Documented By: ASA Co-signed By: JDR Discontinued Medications Acetaminophen (Acetaminophen 500 Mg Tab) 1,000 mg PO NOW ONE Stop: 05/13/25 16:16 Last Admin: 05/13/25 16:34 Dose: 1,000 mg Documented By: ASA Albuterol (Ipratropium [place]/Albuterol Respimat Inh) 1 puffs INH Q4H ASIYA Stop: 06/12/25 15:34 Last Admin: 05/13/25 16:07 Dose: Not Given Documented By: CAM Furosemide (Furosemide 40 Mg/4 Ml Vial) 40 mg IV ONE ONE Stop: 05/13/25 15:36 Last Admin: 05/13/25 16:18 Dose: 40 mg Documented By: ASA Ketorolac Tromethamine (Ketorolac Tromethamine 15 Mg/Ml Vial) 10 mg IV NOW ONE Stop: 05/13/25 12:27 Last Admin: 05/13/25 13:06 Dose: 10 mg Documented By: YONAS Morphine Sulfate (Morphine Sulfate 2 Mg/Ml Carp) 2 mg IV NOW STA Stop: 05/13/25 15:36 Last Admin: 05/13/25 16:17 Dose: 2 mg Documented By: ASA Imaging Data Radiologist's Impression: Chest X-Ray 05/13/25 12:11 XR chest 1V portable CLINICAL HISTORY: Chest pain, nonspecific COMPARISON STUDY: 03/25/2025 FINDINGS: Tracheostomy tube tip is stable at the thoracic inlet. There is stable prominent cardiomegaly with mild pulmonary vascular congestion. No effusion, consolidation, or pneumothorax. IMPRESSION: Stable mild CHF. No acute findings. ACT 112: Negative or not required by law. Electronically signed by: Daryl Mccullough M.D. 05/13/2025 12:[address] 05/13/25 12:26 CT head/brain wo con CLINICAL HISTORY: denson. TECHNIQUE: Multiple axial CT images of the head were obtained without contrast. A dose lowering technique was utilized adhering to the principles of ALARA. CT DOSE: 1421.92 mGy.cm COMPARISON: None FINDINGS: There is attenuation artifact which limits evaluation of the lower brain. No intracranial hemorrhage seen. No mass effect, midline shift, or hydrocephalus. No skull fracture seen. Visualized paranasal sinuses and mastoid air cells are clear. IMPRESSION: Limited exam with no acute findings seen. ACT 112: Negative or not required by law. The above report was generated using voice recognition software. It may contain grammatical, syntax or spelling errors. Electronically signed by: Daryl Mccullough M.D. 05/13/2025 1:15 PM Discharge Plan Visit Data Chief Complaint: Chest Pain ED Provider: Patrick Barrera Discharge Problem: Chest pain, Hyperglycemia, Morbid obesity, Tracheostomy in place Patient Disposition: Admitted As Inpatient Condition: Fair Discharge Instructions Interventions: ED Discharge Assessment Last Done: 05/13/25 14:36 Discharge Problem: Chest pain Qualifiers: Chest pain type: unspecified Qualified Code(s): R07.9 - Chest pain, unspecified
[2025-05-13 12:35] LABS: Basophils # (auto) 0.04 K/uL (0.00-0.20); Basophils % (auto) 0.5 %; Eosinophils # (auto) 0.34 K/uL (0.00-0.50); Eosinophils % (auto) 4.1 %; Hemoglobin 12.1 g/dl (12.0-16.0); Immature Granulocytes # (auto) 0.12 K/uL (0.01-0.20); Immature Granulocytes % (auto) 1.4 %; Lymphocytes % (auto) 15.7 %; Mean Corpuscular Hemoglobin 27.9 pg (25.0-34.0); Mean Corpuscular Hgb Conc 29.5 g/dL (32.0-36.0); Mean Corpuscular Volume 94.7 fL (80.0-100.0); Mean Platelet Volume 9.8 fL (9.4-12.4); Monocytes # (auto) 0.59 K/uL (0.11-0.59); Monocytes % (auto) 7.1 %; Neutrophils # (auto) 5.89 K/uL (1.40-6.50); Neutrophils % (auto) 71.2 %; Platelet Count 239 K/uL (130-400); RDW Coefficient of Variation 16.2 % (11.5-14.5); RDW Standard Deviation 55.7 fL (36.4-46.3); Red Blood Count 4.33 M/uL (4.20-5.40); White Blood Count 8.28 K/ul (4.8-10.8)
--- NOTE | 2025-05-13 12:35 | XRay Report ---
XR chest 1V portable CLINICAL HISTORY: Chest pain, nonspecific COMPARISON STUDY: 03/25/2025 FINDINGS: Tracheostomy tube tip is stable at the thoracic inlet. There is stable prominent cardiomega ly with mild pulmonary vascular congestion. No effusion, consolidation, or pneumothorax. IMPRESSION: Stable mild CHF. No acute findings. ACT 112: Negative or not required by law. Electronically signed by: Daryl Mccullough M.D. 05/13/2025 12:33 PM
[2025-05-13 12:53] LABS: Alanine Aminotransferase 18 U/L (7-52); Albumin Globulin Ratio 0.9 (0.9-2); Albumin Level 3.5 gm/dl (3.4-5.0); Alkaline Phosphatase 80 U/L (34-104); Anion Gap 6 (3-11); Aspartate Aminotransferase 15 U/L (13-39); BUN Creatinine Ratio 17.2 (10-20); Bilirubin,Total 0.3 mg/dl (0.2-1.0); Blood Urea Nitrogen 27 mg/dl (6-23); Calcium 8.8 mg/dl (8.6-10.3); Carbon Dioxide 30 mmol/L (21-32); Chloride 102 mmol/L (98-107); Globulin 3.9 gm/dl (2.5-4.0); Glucose 146 mg/dl (70-99(Fasting)); Lipase 25 U/L (11-82); Potassium 4.4 mmol/L (3.5-5.1); Sodium 138 mmol/L (136-145); Total Protein 7.4 gm/dl (6.0-8.3)
[2025-05-13 13:00] LABS: Troponin I High Sensitivity 6.2 pg/ml (0-14)
--- NOTE | 2025-05-13 13:17 | CT Scan Report ---
CT head/brain wo con CLINICAL HISTORY: denson. TECHNIQUE: Multiple axial CT images of the head were obtained without contrast. A dose lowering tech nique was utilized adhering to the principles of ALARA. CT DOSE: 1421.92 mGy.cm COMPARISON: None FINDINGS: There is attenuation artifact which limits evaluation of the lower brain. No intracranial h emorrhage seen. No mass effect, midline shift, or hydrocephalus. No skull fracture seen. Visualized p aranasal sinuses and mastoid air cells are clear. IMPRESSION: Limited exam with no acute findings seen. ACT 112: Negative or not required by law. The above report was generated using voice recognition software. It may contain grammatical, syntax o r spelling errors. Electronically signed by: Daryl Mccullough M.D. 05/13/2025 1:15 PM
--- NOTE | 2025-05-13 14:04 | History & Physical Report ---
Date of Service May 13, 2025 Assessment & Plan (1) Chest pain: (2) CKD (chronic kidney disease): (3) CHF (congestive heart failure): (4) Chronic hypercapnic respiratory failure: (5) Type 2 diabetes mellitus: Plan #Chest pain/pressurebiggest differential seems to be decompensation of acute on chronic diastolic CHF (acute on chronic HFpEF)the case for this being faint rales chest x-ray that does show mild CHF and an increase in edema recently. Obviously angina is also on the differential, but given the duration of symptoms and stable EKG/negative troponin this seems less likelywill repeat her troponin in several hours and if it is still negative, given the duration of symptoms it seems essentially that angina could be ruled out; at the same time, if clinical suspicion remains could always consider nuclear medicine test (but again given the duration of her symptoms of her follow-up troponin is negative this seems unlikely). Also on the differential would be hypercapnic respiratory failurewe have been trying to get her trach changed so that she can also have BiPAPand unfortunately because of stoma size this has been much more difficult and requiring arrangements with tertiary ENT that are underway but obviously she has not been seen yet. If her VBG shows a respiratory acidosis or a worsening of pCO2, may need to enlist assistance from pulmonary given the complexity of her particular OHS/chronic trach status. - Essentially will manage his acute on chronic diastolic CHF and explore other differentials #acute on chronic diastolic CHFadditional Lasix 40 mg x 1 now and then follow her status with the possibility of needing to continue to give additional dosing of Lasix daybyday. #Chronic hypercapnic respiratory failure/OHS/OSAlast hospital admission we tried to change her trach to 1 that could be utilized along with BiPAPand unfortunately her stoma was slightly too small and the trach was injected and her metal trach had to be replaced. To truly affect this change she is set up for tertiary care ENT, nurse navigator has put in an immense amount of work trying to coordinate all thisbut unfortunately I believe it is mid May. Certainly under managed RASHAAD/OHS has been a significant problem and will likely lead to ongoing declineand to remedy that, changing her to a trach that is compatible with BiPAP would be ideal, but because the stoma was a little too small that is created a much more complex journey. Right now I suspect this is stable, but if her VBG shows any new respiratory acidosis findings, would have to consider potentially part of the acute picture as well. Indirectly, it is reassuring that the bicarb on her basic metabolic panel is down to 30 as opposed to 35 months ago. #Myoclonic jerksany of the above affecting her respiratory status and/or just contributing to more fatigue could certainly increase this. #Headacheseems to probably be tension and migraine combinedleft greater than right suboccipitals high tone/tender/decreased range of motioninhibitory pressurepatient tolerated well. Ice packs for the tension headache, consider ongoing OMT. Tylenol plus morphine additionally to try to help with the migrainea bit limited given that I do not want to give anything vasoconstricting like a triptan, and with her CKD, would not want ongoing NSAID dosing . #Type 2 diabetes on insulinfingersticks, insulin pump #CKD stage IIIin her chronic baseline rangefollow basic metabolic panel with diuresis #palpitationssuspect ectopy. Follow on monitor. Certainly has risks for paroxysmal A-fib but I do not see any evidence that this has occurred #DVT prophylaxis Lovenox dispositionadmit to MedSurg/telemetry [facility] hospitalist team. She lives at home with robust caregiver support, once she is doing well enough anticipate she will be able to go back home. History of Present Illness Chief Complaint: Chest pressure Primary Care Provider: Ofe Mcgee MD patient is a very pleasant 69-year-old female well-known to me from prior admissions. She had chest pressure substernal with radiation to her jaw and subsequent shortness of breathonset sometime this morningnot clear if she woke up with the pressure or it happened shortly after she woke up. Initially it was the pressure rating up her chest into her jaw, and then later the shortness of breath. She called 911, and she was given aspirin and nitroglycerinnoting that the pain improved with nitroglycerin. However, on directed questioning, she still has a mild degree of chest pressure and shortness of breath now. uncertain what the total duration is, but given that her initial documented contact in the ER was about 1215, it seems that at least several hours if not longer. On directed questioning as well, she does endorse some degree of weight gain and swelling. Separately she has had a headache for about the last 2 weeks, relates it being a migraine. Her caregiver notes an increase in myoclonic jerks over the last few weeks as well. Patient also relates occasional feeling of fluttering or pounding in her chest. Allergies Allergy/AdvReac Type Severity Reaction Status Date / Time animal dander Allergy Intermediate Sneezing, Unverified 03/25/25 15:27 itchy watery eyes and Difficulty Breathing Penicillins Allergy Intermediate Hives Verified 03/25/25 15:27 tree and shrub pollen Allergy Intermediate Sneezing, Unverified 03/25/25 15:27 itchy watery eyes and Difficulty Breathing amitriptyline Allergy Unknown CAN'T Verified 03/25/25 15:27 REMEMBER doxycycline Allergy Unknown CAN'T Verified 03/25/25 15:27 REMEMBER guaifenesin Allergy Unknown CAN'T Verified 03/25/25 15:27 REMEMBER metformin Allergy Unknown CAN'T Verified 03/25/25 15:27 REMEMBER phenylephrine Allergy Unknown CAN'T Verified 03/25/25 15:27 REMEMBER pseudoephedrine Allergy Unknown CAN'T Verified 03/25/25 15:27 REMEMBER tetracycline Allergy Unknown CAN'T Verified 03/25/25 15:27 REMEMBER venlafaxine [From Effexor] Allergy Unknown CAN'T Verified 03/25/25 15:27 REMEMBER gabapentin AdvReac Intermediate BECOMES Verified 03/25/25 15:27 AGGRESSIVE Home Medications Medication Instructions Recorded Confirmed Type aspirin 81 mg tablet,delayed 81 mg PO QAM #30 tabs 04/06/23 03/25/25 Rx release (Robert Low Dose Aspirin) atorvastatin 40 mg tablet 40 mg PO QPM #30 tabs 04/06/23 03/25/25 Rx magnesium oxide 400 mg PO QAM #30 tabs 04/06/23 03/25/25 Rx multivitamin 1 tab PO QAM #30 tabs 04/06/23 03/25/25 Rx nitroglycerin 0.4 mg sublingual 0.4 mg sublingual DIRECTED PRN 04/06/23 03/25/25 Rx tablet Chest Pain #25 tabs pantoprazole 40 mg tablet,delayed 40 mg PO DAILYBB #30 tabs 04/06/23 03/25/25 Rx release sertraline 50 mg tablet 50 mg PO QAM #30 tabs 04/06/23 03/25/25 Rx spironolactone 25 mg tablet 25 mg PO QAM #30 tabs 04/06/23 03/25/25 Rx blood-glucose meter (OneTouch #1 ea 07/21/23 03/20/25 Rx Ultra2 Meter) pen needle, diabetic 32 gauge x #150 ea 08/26/23 03/20/25 Rx 5/32" (BD Kaitlin 2nd Gen Pen Needle) pen needle, diabetic 32 gauge x #50 ea 08/26/23 03/20/25 Rx 5/32" (BD Kaitlin 2nd Gen Pen Needle) ipratropium 0.5 mg-albuterol 3 mg 3 ml inhalation Q4H PRN COUGHING, 11/25/23 03/25/25 Rx (2.5 mg base)/3 mL nebulization WHEEZING, SHORTNESS OF BREATH #180 soln mL diclofenac sodium 1 % topical gel 4 g EXT QID PRN Pain 01/15/24 03/25/25 History (Voltaren Arthritis Pain) naloxone 4 mg/actuation nasal 4 mg intranasal DIRECTED PRN 01/15/24 03/25/25 History spray (Narcan) OVERDOSE bupropion HCl 100 mg tablet,12 hr See Rx Instructions .Route .COMPLEX 02/03/24 03/25/25 History sustained-release potassium chloride 20 mEq 20 meq PO BID 02/03/24 03/25/25 History tablet,extended release budesonide 0.5 mg/2 mL suspension 0.5 mg (2 mL) NEB BIDR #120 mL 03/02/24 03/25/25 Rx for nebulization diclofenac sodium 75 mg 75 mg PO BID #60 tabs 03/02/24 03/25/25 Rx tablet,delayed release famotidine 20 mg tablet 20 mg PO DAILY PRN heartburn #30 03/02/24 03/25/25 Rx tabs isosorbide mononitrate 60 mg 60 mg PO QAM 06/13/24 03/25/25 History tablet,extended release 24 hr levothyroxine 200 mcg tablet 200 mcg PO QAM 06/13/24 03/25/25 History levothyroxine 25 mcg tablet 25 mcg PO QAM 06/13/24 03/25/25 History metoprolol tartrate 25 mg tablet 25 mg PO BID 06/13/24 03/25/25 History topiramate 100 mg tablet See Rx Instructions .Route .COMPLEX 06/13/24 03/25/25 History insulin aspart U-100 100 unit/mL See Rx Instructions subcut DAILY 08/21/24 03/25/25 Rx subcutaneous solution (Novolog #100 mL U-100 Insulin aspart) blood sugar diagnostic (OneTouch #400 ea 08/27/24 03/20/25 Rx Ultra Test strips) oxycodone 10 mg tablet 10 mg PO BID PRN Pain 09/14/24 03/25/25 History nebulizers #1 ea 01/17/25 03/20/25 Rx torsemide 10 mg tablet 30 mg (3 x 10 mg) PO QAM #90 tabs 03/13/25 03/25/25 Rx empagliflozin 25 mg tablet 25 mg PO DAILY 03/25/25 03/25/25 History (Jardiance) ipratropium 20 mcg-albuterol 100 1 puff inhalation Q4H shortness of 03/25/25 03/25/25 History mcg/actuation mist for inhalation breath (Combivent Respimat) folic acid 1 mg tablet 1 mg PO DAILY 05/13/25 History montelukast 10 mg tablet 10 mg PO DAILY 05/13/25 History Past Med/Surg History Problem List Nephrolithiasis (Chronic) Payne catheter in place (Chronic) Chronic hypoxic respiratory failure, on home oxygen therapy Tracheostomy dependence Chronic hypercapnic respiratory failure Leukocytosis (Acute) Vomiting (Acute) Elevated brain natriuretic peptide (BNP) level (Acute) Elevated troponin (Acute) CHF (congestive heart failure) (Acute) Respiratory acidosis (Acute) Obesity hypoventilation syndrome (Acute) Tracheostomy in place (Acute) Ambulatory dysfunction (Acute) Skin ulcer of groin, limited to breakdown of skin Morbid obesity with BMI of 60.0-69.9, adult Insulin-requiring or dependent type II diabetes mellitus Hypothyroidism Physical deconditioning Chronic kidney disease, stage 3 Dyslipidemia, goal LDL below 70 HTN, goal below 130/80 Chronic pain Iron deficiency Chronic hypoxic respiratory failure Diabetic nephropathy Seborrhea Back pain Open wound Lesion of left [place] kidney (Chronic) Hypersomnia with sleep apnea (Acute) Memory loss (Acute) MRSA (methicillin resistant staph aureus) culture positive (Chronic) "sputum 11/2015" History of hysterectomy (Chronic) Medical History Acute on chronic heart failure with preserved ejection fraction Acute respiratory acidosis Acute respiratory failure with hypoxia New onset atrial flutter Parainfluenza infection Common migraine without aura Congestive heart failure Diabetic retinopathy associated with type 2 diabetes mellitus Hypoglycemia Chronic kidney disease, stage 3b C. difficile diarrhea Acute gout Wound, breast Type 2 diabetes mellitus Right bundle branch block Presence of tracheostomy Morbid obesity Weakness Cor pulmonale CHF (congestive heart failure) Chronic diastolic heart failure cor pulmonale Chronic obstructive pulmonary disease Generalized weakness Fracture of distal end of right femur Hypothyroidism (acquired) Ureterolithiasis Vitamin D deficiency Adjustment disorder with depressed mood Tinea unguium GERD (gastroesophageal reflux disease) Anxiety Coronary artery disease RASHAAD (obstructive sleep apnea) Sepsis Surgical History History of tonsillectomy and adenoidectomy History of cholecystectomy History of appendectomy Family History Mother Coronary heart disease COPD (chronic obstructive pulmonary disease) Father Suicide Hung himself. Pt found him. Unknown Lung cancer Social History Smoking Status: Never smoker Tobacco Type: Cigarettes Second Hand Exposure: No; Do You Dip or Chew Tobacco: No; Hx Alcohol Use: No Hx Substance Use: No Preferred Language: Barbadian Communication Ability: Effective Visual Impairment: Limited Hearing Ability: Normal Mica Miner Required: Yes Beliefs That Will Affect Care: None marital status: Current Living Situation: Parent Current Living Situation Comment: lives at home with daughter current occupational status: disabled How many Children do You have: 1 Feels Safe at Home: Yes Diet: regular Diet Comment: Drinks 1 Boost drink supplement in the morning caffeine: Yes (1 coffee daily) Physical Activity Frequency: Does not Exercise Seatbelt Use: always Do you think of yourself as: straight/heterosexual Gender Identity: Female Assistive Devices: Hospital Bed, Lift Chair, Mechanical Lift, Oxygen - Continuous and Other Review of Systems Review of Systems: All systems reviewed & are unremarkable except as noted in HPI & below Physical Exam Physical Exam: General she is awake alert oriented x 3 pleasant fatigued appearing but in no distress. HEENT normocephalic atraumatic mucous membranes moist. Cardio is distant without rubs murmurs or gallops. Lungs show faint bibasilar rales I can hear better on the left but I think to hear it on the right as well. Extremities show chronic changes. Neuro shows cranial nerves II through XII are grossly intact gross motor and sensory intact. Labs and diagnostics noted. Chest x-ray to me looks maybe slightly more wetobviously very difficult to interpret film, but I believe I see fluid in the right fissure it was not there previously. EKG stable, troponin negative. Results & Data Results & Data Vital Signs (Past 12 Hours) Vital Signs Temp Pulse Pulse Resp BP BP Pulse Ox 05/13/25 13:28 86 L 05/13/25 12:35 71 05/13/25 12:18 66 22 90 05/13/25 12:18 66 22 149/77 H 90 05/13/25 12:18 96 05/13/25 12:18 98.1 F 66 22 146/77 H 90 05/13/25 12:18 O2 Del Method O2 Flow Rate 05/13/25 13:28 Trach Collar 0 05/13/25 12:35 05/13/25 12:18 Room Air 05/13/25 12:18 Room Air 05/13/25 12:18 Trach Collar 5 05/13/25 12:18 Room Air 05/13/25 12:18 Room Air Code Status & VTE Plan VTE Prophylaxis Plan VTE Prophylaxis will be ordered: Yes PG Care Time/CCT Total # of Minutes Spent Total Time Spent with Patient: Total time spent is greater than 50% in coordination of care (as documented) at patient's floor/unit and/or counseling patient: Coding Level of Care Code 25092 INT INP/OBS CARE 3/75MIN Diagnoses Chest pain R07.9 Chest pain type: unspecified CKD (chronic kidney disease) N18.9 CHF (congestive heart failure) I50.9 Heart failure chronicity: acute on chronic Heart failure type: unspecified Chronic hypercapnic respiratory failure J96.12 Type 2 diabetes mellitus E11.9 (1) Chest pain Chest pain type: unspecified Qualified Code(s): R07.9 - Chest pain, unspecified (3) CHF (congestive heart failure) Heart failure chronicity: acute on chronic Heart failure type: unspecified Qualified Code(s): I50.9 - Heart failure, unspecified
[2025-05-14 07:00] LABS: Basophils # (auto) 0.06 K/uL (0.00-0.20); Basophils % (auto) 0.7 %; Eosinophils # (auto) 0.37 K/uL (0.00-0.50); Eosinophils % (auto) 4.1 %; Hemoglobin 11.1 g/dl (12.0-16.0); Immature Granulocytes # (auto) 0.13 K/uL (0.01-0.20); Immature Granulocytes % (auto) 1.4 %; Lymphocytes # (auto) 1.63 K/uL (1.20-3.40); Lymphocytes % (auto) 18.1 %; Mean Corpuscular Hemoglobin 26.8 pg (25.0-34.0); Mean Corpuscular Hgb Conc 28.5 g/dL (32.0-36.0); Mean Corpuscular Volume 94.2 fL (80.0-100.0); Mean Platelet Volume 9.5 fL (9.4-12.4); Monocytes # (auto) 0.77 K/uL (0.11-0.59); Monocytes % (auto) 8.6 %; Neutrophils # (auto) 6.03 K/uL (1.40-6.50); Neutrophils % (auto) 67.1 %; Platelet Count 227 K/uL (130-400); RDW Coefficient of Variation 16.2 % (11.5-14.5); RDW Standard Deviation 55.4 fL (36.4-46.3); Red Blood Count 4.14 M/uL (4.20-5.40); White Blood Count 8.99 K/ul (4.8-10.8)
[2025-05-14 07:22] LABS: Calcium 8.7 mg/dl (8.6-10.3); Potassium 4.7 mmol/L (3.5-5.1)
[2025-05-14 07:27] LABS: BUN Creatinine Ratio 18.2 (10-20); Creatinine Clr Calc Pharmacy 45.3 ml/min
--- NOTE | 2025-05-14 07:36 | Hospitalist Progress Note ---
Date of Service May 14, 2025 Assessment & Plan (1) Morbid obesity: (2) Chronic hypoxic respiratory failure, on home oxygen therapy: (3) Chest pain: (4) CHF (congestive heart failure): Plan Whit is a 69 Y O female with PMH of obstructive sleep apnea, obesity hypoventilation syndrome, cor pulmonale, COPD, insulin-dependent diabetes mellitus, chronic nonweightbearing of her right lower extremity due to nonhealing fracture presented to ER with substernal chest pressure with radiation to Jaw and Shortness of Breath. No acute changes on EKG and Troponin was negative. She was admitted for Acute on Chronic Diastolic CHF and Respiratory Failure 2/2 to Hypoventilation. #Acute on Chronic Diastolic CHF - She is on Torsemide 30mg QAM at home. - Lasix 40mg IV 1 dose yesterday. -Lasix 20mg IV today - 2 L fluid restriction. Low sodium diet (< 2 g/day). - Strict Ins/Outs - Daily weight check. - TTE : LVEF 60-65% 03/08. - Electrolyte replacement protocol (Mg > 2, K >4) #Chest pain - Troponin negative -EKG with no acute changes - No intervention indicated at this time #Chronic hypercapnic Respiratory failure/OHS/RASHAAD -On 6L o2 via trach collar - She has under managed RASHAAD/OHS. Has appointment set up with ENT on June 04 to increase the size of stroma and change the trach that is more compatible with BMP. #Headache -Likely combination of tension headache and migraine -Has home pain meds ordered #CKD III -Follow creatinine with diuresis - Creatinine today -Follow CMP tomorrow DVT prophylaxis: Lovenox Disposition: PCU CODE STATUS: Full code Diet: Heart healthy/DM2 Admission and Anticipated Discharge Date Admission Date: May 13, 2025 Supervising Physician Co-Signing Physician Notes I personally examined the patient and verified pappas points of history and exam, discussed case, and agree with decision making and plan documented by Dr. Shoemaker. 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 On admission for chest pain and acute on chronic diastolic CHF. Troponins negative, will monitor on telemetry. Patient reports some improvement with initiation of IV furosemide, she is chronically on torsemide 30 mg p.o. daily. Continue I's and O's and weights. Unfortunately, patient has not been able to have stoma dilated to facilitate invasive ventilation when needed, she will need coordination outpatient to connect with ENT (patient sees [facility] and is unsure if they can perform dilation, case management has arranged appointment with [facility] in [place] 06/04/25 for consultation for dilation). Currently on 6L O2 trach collar. Subjective Overnight events: No any Ongoing symptoms: Still has chest pain rating 4/10; shortness of breath and headache. New concerns: No any Review of Systems Review of Systems: As per HPI Physical Exam Physical Exam: Constitutional: Morbidly obesed , Has trach collar, not in acute distress, PILCCOD: Negative HEENT: Atraumatic, Normocephalic, No conjunctival injection CVS: S1 S2 didnot hear any murmur, distant heart sounds Respiratory: bibasilar crackles + GI: Soft, distended, Nontender, Normal Bowel sounds + MSK: Absence of right lower extremity; Mild bilateral lower extremity edema Skin: Warm, Dry, No rashes Neuro: Alert, Oriented to TPP, No Focal deficit Results & Data Results & Data Vital Signs (Past 12 Hours) Vital Signs Temp Pulse Pulse Resp BP Pulse Ox O2 Del Method 05/14/25 05:44 116/67 05/14/25 04:12 36.4 C L 61 18 95/61 L 92 Trach Collar 05/13/25 23:19 36.6 C 68 18 99/65 L 92 Trach Collar 05/13/25 22:15 Trach Collar 05/13/25 21:55 86 05/13/25 20:06 81 18 94 Trach Collar 05/13/25 19:42 36.6 C 72 16 148/60 H 92 Trach Collar O2 Flow Rate 05/14/25 05:44 05/14/25 04:12 6 05/13/25 23:19 6 05/13/25 22:15 5 05/13/25 21:55 05/13/25 20:06 05/13/25 19:42 5 (3) Chest pain Chest pain type: unspecified Qualified Code(s): R07.9 - Chest pain, unspecified (4) CHF (congestive heart failure) Heart failure chronicity: acute on chronic Heart failure type: unspecified Qualified Code(s): I50.9 - Heart failure, unspecified
[2025-05-15 06:16] LABS: Basophils # (auto) 0.04 K/uL (0.00-0.20); Basophils % (auto) 0.4 %; Eosinophils # (auto) 0.44 K/uL (0.00-0.50); Eosinophils % (auto) 4.6 %; Hematocrit (blood only) 36.6 % (37.0-47.0); Hemoglobin 10.8 g/dl (12.0-16.0); Immature Granulocytes # (auto) 0.12 K/uL (0.01-0.20); Immature Granulocytes % (auto) 1.3 %; Lymphocytes # (auto) 1.86 K/uL (1.20-3.40); Lymphocytes % (auto) 19.5 %; Mean Corpuscular Hemoglobin 27.7 pg (25.0-34.0); Mean Corpuscular Hgb Conc 29.5 g/dL (32.0-36.0); Mean Corpuscular Volume 93.8 fL (80.0-100.0); Mean Platelet Volume 9.8 fL (9.4-12.4); Monocytes # (auto) 0.78 K/uL (0.11-0.59); Monocytes % (auto) 8.2 %; Neutrophils # (auto) 6.28 K/uL (1.40-6.50); Platelet Count 231 K/uL (130-400); RDW Coefficient of Variation 16.1 % (11.5-14.5); RDW Standard Deviation 55.4 fL (36.4-46.3); White Blood Count 9.52 K/ul (4.8-10.8)
[2025-05-15 06:32] LABS: Albumin Globulin Ratio 0.9 (0.9-2); Albumin Level 3.2 gm/dl (3.4-5.0); Bilirubin,Total 0.4 mg/dl (0.2-1.0); Calcium 8.7 mg/dl (8.6-10.3); Creatinine Clr Calc Pharmacy 50.6 ml/min; Globulin 3.4 gm/dl (2.5-4.0); Potassium 4.2 mmol/L (3.5-5.1); Total Protein 6.6 gm/dl (6.0-8.3)
--- NOTE | 2025-05-15 07:59 | Hospitalist Progress Note ---
Date of Service May 15, 2025 Assessment & Plan (1) Morbid obesity: (2) Chronic hypoxic respiratory failure, on home oxygen therapy: (3) Chest pain: (4) CHF (congestive heart failure): Plan Whit is a 69 Y O female with PMH of obstructive sleep apnea, obesity hypoventilation syndrome, cor pulmonale, COPD, insulin-dependent diabetes mellitus, chronic nonweightbearing of her right lower extremity due to nonhealing fracture presented to ER with substernal chest pressure with radiation to Jaw and Shortness of Breath. No acute changes on EKG and Troponin was negative. She was admitted for Acute on Chronic Diastolic CHF and Respiratory Failure 2/2 to Hypoventilation. #Acute on Chronic Diastolic CHF - She is on Torsemide 30mg QAM at home. - Additional dose of Lasix 40mg IV today - 2 L fluid restriction. Low sodium diet (< 2 g/day). - Strict Ins/Outs - Daily weight check. - TTE : LVEF 60-65% 03/08. - Electrolyte replacement protocol (Mg > 2, K >4) #Chest pain -Still complaining of chest pain. - Repeat Troponin was negative - Repeat EKG with no acute changes - Chest Xray with no acute changes -Will continue to monitor on telemetry #Chronic hypercapnic Respiratory failure/OHS/RASHAAD -On 10l o2 via trach collar - She has under managed RASHAAD/OHS. Has appointment set up with ENT on June 04 to increase the size of stroma and change the trach that is more compatible with BIPAP. #Headache -Likely combination of tension headache and migraine -Has home pain meds ordered #CKD III -Follow creatinine with diuresis - Creatinine down to 1. 57 from 1.76 DVT prophylaxis: Lovenox Disposition: PCU CODE STATUS: Full code Diet: Heart healthy/DM2 Admission and Anticipated Discharge Date Admission Date: May 13, 2025 Supervising Physician Co-Signing Physician Notes I personally examined the patient and verified pappas points of history and exam, discussed case, and agree with decision making and plan documented by Dr. Shoemaker. 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 On admission for chest pain and acute on chronic diastolic CHF. Patient reports improvement of her headache, still has some chest pressure. ECG unchanged, chest x-ray without acute findings, and troponin negative. Patient responding well to IV diuresis. She remains on 6L O2 trach collar. Brief goals of care conversation today, reviewed advanced directive with patient and advised her to discuss code status with her daughter. Still working on followup with ENT for stoma dilation, team will contact Dr. Demetri Huerta at [facility] to see if he will perform dilation, otherwise patient has an appointment scheduled with physician in [facility] that has been identified as a physician can perform procedure. Subjective Overnight events: No any Ongoing symptoms: Still has chest pain rating 4/10; headache rating 6/10. Reports that her shortness on breath is little better. New concerns: No any Review of Systems 2 Review of Systems: As per HPI Physical Exam Physical Exam: Constitutional: Morbidly obesed , Has trach collar, not in acute distress, PILCCOD: Negative HEENT: Atraumatic, Normocephalic, No conjunctival injection CVS: S1 S2 didnot hear any murmur, distant heart sounds Respiratory: bibasilar crackles + GI: Soft, distended, Nontender, Normal Bowel sounds + MSK: Absence of right lower extremity; Mild bilateral lower extremity edema Skin: Warm, Dry, No rashes Neuro: Alert, Oriented to TPP, No Focal deficit Results & Data Results & Data Vital Signs (Past 12 Hours) Vital Signs Temp Pulse Pulse Resp BP Pulse Ox O2 Del Method 05/15/25 07:34 60 05/15/25 07:08 36.6 C 67 18 129/75 92 Trach Collar 05/15/25 03:33 36.4 C L 60 18 112/65 93 Trach Collar 05/15/25 00:07 36.8 C 66 18 102/60 94 Trach Collar 05/14/25 22:52 Trach Collar 05/14/25 22:07 72 O2 Flow Rate FiO2 05/15/25 07:34 05/15/25 07:08 8 28 05/15/25 03:33 8 05/15/25 00:07 8 05/14/25 22:52 9 05/14/25 22:07 (3) Chest pain Chest pain type: unspecified Qualified Code(s): R07.9 - Chest pain, unspecified (4) CHF (congestive heart failure) Heart failure chronicity: acute on chronic Heart failure type: unspecified Qualified Code(s): I50.9 - Heart failure, unspecified
[2025-05-15 12:29] LABS: HCO3 VBG 32 mmol/L; Oxygen Saturation VBG 72.4 %; PCO2 VBG 60 mmHg (38-50); PO2 VBG 43 mmHg; pH VBG 7.33 (7.36-7.41)
--- NOTE | 2025-05-15 13:05 | Electrocardiogram Report ---
Test Reason : Blood Pressure : */* mmHG Vent. Rate : 80 BPM Atrial Rate : 80 BPM P-R Int : 286 ms QRS Dur : 138 ms QT Int : 428 ms P-R-T Axes : 35 -52 16 degrees QTcB Int : 493 ms Sinus rhythm with 1st degree A-V block Right bundle branch block Left anterior fascicular block Bifascicular block Possible Lateral infarct , age undetermined Abnormal ECG When compared with ECG of 13-May-2025 12:15, (unconfirmed) Premature ventricular complexes are no longer Present Confirmed by Nura López ([id number]) on 05/15/2025 1:04:40 PM Referred By: REFERRED SELF Confirmed By: Nura López
--- NOTE | 2025-05-15 13:19 | XRay Report ---
XR chest 1V portable CLINICAL HISTORY: Chest pain, SOB COMPARISON STUDY: 05/13/2025 FINDINGS: Tracheostomy tube tip is stable at the thoracic inlet. There is stable prominent cardiomega ly without pulmonary vascular congestion. No consolidation or pleural effusion seen. No pneumothorax. IMPRESSION: No acute findings. ACT 112: Negative or not required by law. Electronically signed by: Daryl Mccullough M.D. 05/15/2025 1:17 PM
--- NOTE | 2025-05-15 15:26 | Electrocardiogram Report ---
Test Reason : Blood Pressure : */* mmHG Vent. Rate : 75 BPM Atrial Rate : 75 BPM P-R Int : 252 ms QRS Dur : 144 ms QT Int : 424 ms P-R-T Axes : -14 -54 40 degrees QTcB Int : 473 ms Sinus rhythm with 1st degree A-V block with occasional , and consecutive Premature ventricular comple xes Right bundle branch block Left anterior fascicular block Bifascicular block Abnormal ECG When compared with ECG of 25-Mar-2025 11:49, Premature ventricular complexes are now Present Confirmed by Nura López ([id number]) on 05/15/2025 3:25:45 PM Referred By: Confirmed By: Nura López
[2025-05-16 07:35] LABS: Basophils # (auto) 0.06 K/uL (0.00-0.20); Basophils % (auto) 0.6 %; Eosinophils # (auto) 0.44 K/uL (0.00-0.50); Eosinophils % (auto) 4.5 %; Hematocrit (blood only) 37.2 % (37.0-47.0); Hemoglobin 10.7 g/dl (12.0-16.0); Immature Granulocytes # (auto) 0.12 K/uL (0.01-0.20); Immature Granulocytes % (auto) 1.2 %; Lymphocytes # (auto) 1.58 K/uL (1.20-3.40); Lymphocytes % (auto) 16.3 %; Mean Corpuscular Hemoglobin 27.1 pg (25.0-34.0); Mean Corpuscular Hgb Conc 28.8 g/dL (32.0-36.0); Mean Corpuscular Volume 94.2 fL (80.0-100.0); Mean Platelet Volume 9.7 fL (9.4-12.4); Monocytes # (auto) 0.95 K/uL (0.11-0.59); Monocytes % (auto) 9.8 %; Neutrophils # (auto) 6.57 K/uL (1.40-6.50); Neutrophils % (auto) 67.6 %; Platelet Count 215 K/uL (130-400); RDW Standard Deviation 55.4 fL (36.4-46.3); Red Blood Count 3.95 M/uL (4.20-5.40); White Blood Count 9.72 K/ul (4.8-10.8)
--- NOTE | 2025-05-16 07:50 | Hospitalist Progress Note ---
Date of Service May 16, 2025 Assessment & Plan (1) Morbid obesity: (2) Chronic hypoxic respiratory failure, on home oxygen therapy: (3) Chest pain: (4) CHF (congestive heart failure): Plan Whit is a 69 Y O female with PMH of obstructive sleep apnea, obesity hypoventilation syndrome, cor pulmonale, COPD, insulin-dependent diabetes mellitus, chronic nonweightbearing of her right lower extremity due to nonhealing fracture presented to ER with substernal chest pressure with radiation to Jaw and Shortness of Breath. No acute changes on EKG and Troponin was negative. She was admitted for Acute on Chronic Diastolic CHF and Respiratory Failure 2/2 to Hypoventilation. #Acute on Chronic Diastolic CHF - She is on Torsemide 30mg QAM at home. - Continue home Torsemide - 2 L fluid restriction. Low sodium diet (< 2 g/day). - Strict Ins/Outs - Daily weight check. - TTE : LVEF 60-65% 03/08. - Electrolyte replacement protocol (Mg > 2, K >4) #Chest pain -Today patient reports her chest pain is better. - Repeat Troponin was negative - Repeat EKG with no acute changes - Chest Xray with no acute changes -Will continue to monitor on telemetry #Chronic hypercapnic Respiratory failure/OHS/RASHAAD -On 6l o2 via trach collar - She has under managed RASHAAD/OHS. Has appointment set up with ENT on June 04 to increase the size of stroma and change the trach that is more compatible with BIPAP. Case management working on reaching out to her ENT doctor Demetri Suazo at [facility] if he can do surgery #Headache -Likely combination of tension headache and migraine -Has home pain meds ordered #CKD III -Follow creatinine with diuresis - Creatinine increased DVT prophylaxis: Lovenox Disposition: PCU CODE STATUS: Full code Diet: Heart healthy/DM2 Admission and Anticipated Discharge Date Admission Date: May 13, 2025 Supervising Physician Co-Signing Physician Notes I personally examined the patient and verified pappas points of history and exam, discussed case, and agree with decision making and plan documented by Dr. Shoemaker. 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 On admission for chest pain and acute on chronic diastolic CHF. She remains on 6L O2 trach collar, at baseline. Now on home dose torsemide after good response to IV diuresis. Reviewed with patient that [facility] no longer will accept her insurance and that she will need to proceed to scheduled appointment with [facility] in [place] which is scheduled June 04, 2025. Patient will need stoma dilated to facilitate size 6 tracheostomy. Patient does not want plastic tracheostomy tube, she is adamant that she would like to maintain the metal. Patient is at a high risk of respiratory failure and will need a larger tracheostomy to facilitate invasive ventilation. We reviewed this during her goals of care conversation yesterday. Subjective Overnight events: No any Ongoing symptoms: She reported her breathing is more easy, chest pain is better today. Headache still persists New concerns: No any Review of Systems Review of Systems: As per HPI Physical Exam Physical Exam: Constitutional: Morbidly obesed , Has trach collar, not in acute distress, PILCCOD: Negative HEENT: Atraumatic, Normocephalic, No conjunctival injection CVS: S1 S2 didnot hear any murmur, distant heart sounds Respiratory: bibasilar crackles + GI: Soft, distended, Nontender, Normal Bowel sounds + MSK: Absence of right lower extremity; Mild bilateral lower extremity edema Skin: Warm, Dry, No rashes Neuro: Alert, Oriented to TPP, No Focal deficit Results & Data Results & Data Vital Signs (Past 12 Hours) Vital Signs Temp Pulse Pulse Resp BP BP Pulse Ox 05/16/25 07:45 78 18 94 05/16/25 07:18 58 L 05/16/25 02:38 36.7 C 63 16 122/71 97 05/15/25 23:17 36.8 C 72 16 111/72 92 05/15/25 21:45 76 05/15/25 21:15 05/15/25 19:52 36.8 C 76 16 120/67 95 O2 Del Method O2 Flow Rate FiO2 05/16/25 07:45 Trach Collar 6 28 05/16/25 07:18 05/16/25 02:38 Trach Collar 6 28 05/15/25 23:17 Trach Collar 6 28 05/15/25 21:45 05/15/25 21:15 Trach Collar 05/15/25 19:52 Trach Collar 28 Resident Activity Tracking Resident Involvement: Resident Care Provided Care Provided: Adult Hospital Medicine (3) Chest pain Chest pain type: unspecified Qualified Code(s): R07.9 - Chest pain, unspecified (4) CHF (congestive heart failure) Heart failure chronicity: acute on chronic Heart failure type: unspecified Qualified Code(s): I50.9 - Heart failure, unspecified
[2025-05-16 08:00] LABS: Albumin Globulin Ratio 0.9 (0.9-2); Albumin Level 3.3 gm/dl (3.4-5.0); BUN Creatinine Ratio 22.4 (10-20); Bilirubin,Total 0.4 mg/dl (0.2-1.0); Creatinine Clr Calc Pharmacy 48.7 ml/min; Globulin 3.7 gm/dl (2.5-4.0); Potassium 4.3 mmol/L (3.5-5.1)
[2025-05-17 07:32] VITALS: RESP 18
[2025-05-17 07:57] LABS: Creatinine Clr Calc Pharmacy 49.4 ml/min
--- NOTE | 2025-05-17 10:00 | Hospitalist Progress Note ---
Date of Service May 17, 2025 Assessment & Plan (1) Morbid obesity: (2) Chronic hypoxic respiratory failure, on home oxygen therapy: (3) Chest pain: (4) CHF (congestive heart failure): Plan Whit is a 69 Y O female with PMH of obstructive sleep apnea, obesity hypoventilation syndrome, cor pulmonale, COPD, insulin-dependent diabetes mellitus, chronic nonweightbearing of her right lower extremity due to nonhealing fracture presented to ER with substernal chest pressure with radiation to Jaw and Shortness of Breath. No acute changes on EKG and Troponin was negative. She was admitted for Acute on Chronic Diastolic CHF and Respiratory Failure 2/2 to Hypoventilation. #Acute on Chronic Diastolic CHF - She is on Torsemide 30mg QAM at home. - Continue home Torsemide - 2 L fluid restriction. Low sodium diet (< 2 g/day). - Strict Ins/Outs - Daily weight check. - TTE : LVEF 60-65% 03/08. - Electrolyte replacement protocol (Mg > 2, K >4) #Chest pain -Today patient reports her chest pain is better. - Repeat Troponin was negative - Repeat EKG with no acute changes - Chest Xray with no acute changes -Will continue to monitor on telemetry #Chronic hypercapnic Respiratory failure/OHS/RASHAAD -On 6l o2 via trach collar - She has under managed RASHAAD/OHS. Has appointment set up with ENT on June 04 to increase the size of stroma and change the trach that is more compatible with BIPAP. Case management working on reaching out to her ENT doctor Demetri Suazo at [facility] if he can do surgery #Headache -Likely combination of tension headache and migraine -Has home pain meds ordered #CKD III -Follow creatinine with diuresis - Creatinine increased DVT prophylaxis: Lovenox Disposition: PCU CODE STATUS: Full code Diet: Heart healthy/DM2 Admission and Anticipated Discharge Date Admission Date: May 13, 2025 Subjective Overnight events: No any Ongoing symptoms: She reported her breathing is more easy, chest pain is better today. Headache still persists New concerns: No any Review of Systems Review of Systems: As per HPI Physical Exam Physical Exam: Constitutional: Morbidly obesed , Has trach collar, not in acute distress, PILCCOD: Negative HEENT: Atraumatic, Normocephalic, No conjunctival injection CVS: S1 S2 didnot hear any murmur, distant heart sounds Respiratory: bibasilar crackles + GI: Soft, distended, Nontender, Normal Bowel sounds + MSK: Absence of right lower extremity; Mild bilateral lower extremity edema Skin: Warm, Dry, No rashes Neuro: Alert, Oriented to TPP, No Focal deficit Results & Data Results & Data Vital Signs (Past 12 Hours) Vital Signs Temp Pulse Pulse Resp BP BP Pulse Ox 05/17/25 07:48 67 05/17/25 07:31 36.5 C 65 18 132/73 95 05/17/25 07:12 67 15 96 05/17/25 02:37 36.8 C 66 16 114/64 96 05/16/25 22:46 37.2 C 80 16 110/63 95 05/16/25 22:29 O2 Del Method O2 Flow Rate FiO2 05/17/25 07:48 05/17/25 07:31 Trach Collar 6 28 05/17/25 07:12 Trach Collar 7 28 05/17/25 02:37 Trach Collar 6 28 05/16/25 22:46 Trach Collar 6 28 05/16/25 22:29 Trach Collar 6 28 (3) Chest pain Chest pain type: unspecified Qualified Code(s): R07.9 - Chest pain, unspecified (4) CHF (congestive heart failure) Heart failure chronicity: acute on chronic Heart failure type: unspecified Qualified Code(s): I50.9 - Heart failure, unspecified
[2025-05-17 14:15] VITALS: TEMP 98.2; O2SAT 97
[2025-05-17 14:16] VITALS: BP 114/64; PULSE 72
--- NOTE | 2025-05-17 18:30 | Discharge Summary ---
Date of Service May 17, 2025 Admission HPI Per Admitting Provider patient is a very pleasant 69-year-old female well-known to me from prior admissions. She had chest pressure substernal with radiation to her jaw and subsequent shortness of breathonset sometime this morningnot clear if she woke up with the pressure or it happened shortly after she woke up. Initially it was the pressure rating up her chest into her jaw, and then later the shortness of breath. She called 911, and she was given aspirin and nitroglycerinnoting that the pain improved with nitroglycerin. However, on directed questioning, she still has a mild degree of chest pressure and shortness of breath now. uncertain what the total duration is, but given that her initial documented contact in the ER was about 1215, it seems that at least several hours if not longer. On directed questioning as well, she does endorse some degree of weight gain and swelling. Separately she has had a headache for about the last 2 weeks, relates it being a migraine. Her caregiver notes an increase in myoclonic jerks over the last few weeks as well. Patient also relates occasional feeling of fluttering or pounding in her chest. Admission Exam Per Admitting Provider General she is awake alert oriented x 3 pleasant fatigued appearing but in no distress. HEENT normocephalic atraumatic mucous membranes moist. Cardio is distant without rubs murmurs or gallops. Lungs show faint bibasilar rales I can hear better on the left but I think to hear it on the right as well. Extremities show chronic changes. Neuro shows cranial nerves II through XII are grossly intact gross motor and sensory intact. Labs and diagnostics noted. Chest x-ray to me looks maybe slightly more wetobviously very difficult to interpret film, but I believe I see fluid in the right fissure it was not there previously. EKG stable, troponin negative. Principal Diagnosis 1. Acute on Chronic Diastolic CHF 2. Chest Pain(Resolved) 3. Chronic Hypercapnic Respiratory Failure/OHS/RASHAAD 4. CKD III Discharge Exam al Exam: Constitutional: Morbidly obesed , Has trach collar, not in acute distress, PILCCOD: Negative HEENT: Atraumatic, Normocephalic, No conjunctival injection CVS: S1 S2 didnot hear any murmur, distant heart sounds Respiratory: bibasilar crackles + GI: Soft, distended, Nontender, Normal Bowel sounds + MSK: Absence of right lower extremity; Mild bilateral lower extremity edema Skin: Warm, Dry, No rashes Neuro: Alert, Oriented to TPP, No Focal deficit Discharge Data Allergies Allergy/AdvReac Type Severity Reaction Status Date / Time animal dander Allergy Intermediate Sneezing, Unverified 03/25/25 15:27 itchy watery eyes and Difficulty Breathing Penicillins Allergy Intermediate Hives Verified 03/25/25 15:27 tree and shrub pollen Allergy Intermediate Sneezing, Unverified 03/25/25 15:27 itchy watery eyes and Difficulty Breathing amitriptyline Allergy Unknown CAN'T Verified 03/25/25 15:27 REMEMBER doxycycline Allergy Unknown CAN'T Verified 03/25/25 15:27 REMEMBER guaifenesin Allergy Unknown CAN'T Verified 03/25/25 15:27 REMEMBER metformin Allergy Unknown CAN'T Verified 03/25/25 15:27 REMEMBER phenylephrine Allergy Unknown CAN'T Verified 03/25/25 15:27 REMEMBER pseudoephedrine Allergy Unknown CAN'T Verified 03/25/25 15:27 REMEMBER tetracycline Allergy Unknown CAN'T Verified 03/25/25 15:27 REMEMBER venlafaxine [From Effexor] Allergy Unknown CAN'T Verified 03/25/25 15:27 REMEMBER gabapentin AdvReac Intermediate BECOMES Verified 03/25/25 15:27 AGGRESSIVE Consultations 05/13/25 13:09 ED Decision to Admit Stat Ordered Studies 05/13/25 12:26 CT head/brain wo con Stat Hospital Course (1) Morbid obesity: (2) Hyperglycemia: (3) Chronic hypercapnic respiratory failure: (4) Chronic hypoxic respiratory failure, on home oxygen therapy: Wesley Sherman is a 69 Y O female with PMH of obstructive sleep apnea, obesity hypoventilation syndrome, cor pulmonale, COPD, insulin-dependent diabetes mellitus, chronic nonweightbearing of her right lower extremity due to nonhealing fracture presented to ER with substernal chest pressure with radiation to Jaw and Shortness of Breath. No acute changes on EKG and Troponin was negative. She was admitted for Acute on Chronic Diastolic CHF and Respiratory Failure 2/2 to Hypoventilation. #Acute on Chronic Diastolic CHF - She is on Torsemide 30mg QAM at home. - Continue home Torsemide - 2 L fluid restriction. Low sodium diet (< 2 g/day). - Strict Ins/Outs - Daily weight check. - TTE : LVEF 60-65% 03/08. - Electrolyte replacement protocol (Mg > 2, K >4) #Chest pain -Today patient reports her chest pain is better. - Repeat Troponin was negative - Repeat EKG with no acute changes - Chest Xray with no acute changes -Will continue to monitor on telemetry #Chronic hypercapnic Respiratory failure/OHS/RASHAAD -On 6l o2 via trach collar - She has under managed RASHAAD/OHS. Has appointment set up with ENT on June 04 to increase the size of stroma and change the trach that is more compatible with BIPAP. Case management working on reaching out to her ENT doctor Demetri Suazo at [facility] if he can do surgery #Headache -Likely combination of tension headache and migraine -Continue home meds #CKD III -Follow creatinine on outpatient Total Time Total Time Spent Total Time Spent (In Minutes): See attending attestation Discharge Plan Discharge Items Patient Disposition: Home - Self-Care Reason For Visit: CHEST PAIN, MILD CHF Discharge Diagnosis: 1. Acute on Chronic Diastolic CHF 2. Chest Pain(Resolved) 3. Chronic Hypercapnic Respiratory Failure/OHS/RASHAAD 4. CKD III Condition on Discharge: Fair Activity: Resume your previous activity Non-emergency contact: Primary Care Provider Call non-emergency contact if: you have any medication questions and your symptoms worsen Follow-up/Referrals: Cisco Blackman [Other] - 06/04/25 8:30 am (ENT referral. If unable to keep this time or date please call to reschedule. Please arrive 15 minutes prior to appointment time. ) Ofe Mcgee MD [Primary Care Provider] - 05/21/25 11:05 am (Hospital follow up is scheduled for May 21, 2025 at 11:05 am) Diet: Heart Healthy Addtl Attending Provider Instructions: You were admitted to the hospital for Acute Exacerbation of Heart Failure. You were treated with IV Lasix and you showed significant improvement with Lasix. Today you are clinically improving and seem to be in your baseline to go back home. You are scheduled with [facility] on mid May to undergo surgery to increase your size of stroma. Please make sure to follow with them. A discharge summary will be sent to your primary care physician to ensure continuity of care. Please bring this discharge summary with you to your next office appointment so that your provider can review it at that time. Follow-up appointments: Make a follow-up appointment with your PCP within the next week. It is very important that you follow up with them shortly after discharge from the hospital.] Keep all your follow-up appointments as already scheduled. If you cannot make an appointment, notify your provider. Take your medications as instructed; do not skip a dose of your medicines. Make sure all of your doctors know every medicine you are taking (including zass-stg-[id number] medicines, vitamins, and supplements). Call your primary care provider before taking any new medicines (including overthe- counter medicines, vitamins, and supplements), because some of these may interact with your current medications, or may make your symptoms worse. Tell your primary care provider if you cannot afford your medications. CONTACT YOUR PRIMARY CARE PROVIDER if you experience any of the following: Difficulty in breathing Increase in swelling of bilateral lower extremities Difficulty following your treatment plan, or difficulty taking medications CALL 911 OR GO TO THE EMERGENCY DEPARTMENT if you experience any of the following: Sudden, severe abdominal pain or nausea/vomiting Severe chest pain, or chest pain that radiates (moves) to your jaw or arm Sudden, severe shortness of breath or difficulty breathing Thank you for allowing us to participate in your care. . Pending Studies at Discharge: No Stand-Alone Forms: [facility], Sm[facility] Cess[facility] Medications and DC Order Prescriptions: Continued (DME) blood-glucose meter [OneTouch Ultra2 Meter] Mis See Rx Instructions .Route Qty: 1 0RF Rx Instructions: As directed insulin aspart U-100 [Novolog U-100 Insulin aspart] 100 unit/mL solution See Rx Instructions subcut DAILY Qty: 100 4RF Rx Instructions: For insulin pump 300 units a day. (DME) nebulizers Misc See Rx Instructions .Route Qty: 1 0RF Rx Instructions: PLEASE REPLACE COMPRESSOR; PREVIOUS ONE BROKEN BEYOND REPAIR (DME) pen needle, diabetic [BD Kaitlin 2nd Gen Pen Needle] 32 gauge x 5/32" needle See Rx Instructions miscellaneous .MEDSUPPLY Qty: 50 0RF Rx Instructions: As directed (DME) pen needle, diabetic [BD Kaitlin 2nd Gen Pen Needle] 32 gauge x 5/32" needle See Rx Instructions miscellaneous .MEDSUPPLY Qty: 150 5RF Rx Instructions: change new pen 5x a day ipratropium-albuterol 0.5 mg-3 mg(2.5 mg base)/3 mL solution for nebulization 3 ml INHALATION Q4H PRN (Reason: COUGHING, WHEEZING, SHORTNESS OF BREATH) Qty: 180 4RF (DME) OneTouch Ultra Test Strip See Rx Instructions .Route Qty: 400 3RF Rx Instructions: As directed four times per day to monitor blood glucose multivitamin Tablet 1 tab PO QAM Qty: 30 1RF atorvastatin 40 mg tablet 40 mg PO QPM Qty: 30 1RF aspirin [Robert Low Dose Aspirin] 81 mg Tablet,Delayed Release (Dr/Ec) 81 mg PO QAM Qty: 30 1RF spironolactone 25 mg Tablet 25 mg PO QAM Qty: 30 1RF pantoprazole 40 mg Tablet,Delayed Release (Dr/Ec) 40 mg PO DAILYBB Qty: 30 1RF nitroglycerin 0.4 mg tablet, sublingual 0.4 mg SL DIRECTED PRN (Reason: Chest Pain) Qty: 25 0RF sertraline 50 mg Tablet 50 mg PO QAM Qty: 30 1RF magnesium oxide 400 mg magnesium Tablet 400 mg PO QAM Qty: 30 1RF diclofenac sodium [Voltaren Arthritis Pain] 1 % gel 4 g EXT QID PRN (Reason: Pain) naloxone [Narcan] 4 mg/actuation spray,non-aerosol 4 mg INTRANASAL DIRECTED PRN (Reason: OVERDOSE) bupropion HCl 100 mg tablet sustained-release 12 hr See Rx Instructions .ROUTE .COMPLEX Rx Instructions: Take 100mg by mouth in the morning and 200mg by mouth at bedtime potassium chloride 20 mEq tablet extended release 20 meq PO BID famotidine 20 mg Tablet 20 mg PO DAILY PRN (Reason: heartburn) Qty: 30 0RF budesonide 0.5 mg/2 mL Suspension For Nebulization 0.5 mg NEB BIDR Qty: 120 0RF oxycodone 10 mg tablet 10 mg PO BID PRN (Reason: Pain) Rx Instructions: filled 09/07 30 day supply torsemide 10 mg tablet 30 mg PO QAM Qty: 90 1RF folic acid 1 mg tablet 1 mg PO DAILY montelukast 10 mg tablet 10 mg PO DAILY levothyroxine 25 mcg tablet 25 mcg PO QAM Rx Instructions: Take 25mcg w/ 200mcg by mouth to equal 225mcg every morning. isosorbide mononitrate 60 mg tablet extended release 24 hr 60 mg PO QAM levothyroxine 200 mcg tablet 200 mcg PO QAM Rx Instructions: Take 200mcg w/ 25mcg by mouth to equal 225mcg every morning. topiramate 100 mg tablet See Rx Instructions .ROUTE .COMPLEX Rx Instructions: Take 100mg by mouth in the morning and 200mg by mouth at bedtime per family and pharmacy 03/25/25 metoprolol tartrate 25 mg tablet 25 mg PO BID Jardiance 25 mg tablet 25 mg PO DAILY Combivent Respimat 20-100 mcg/actuation mist 1 puff INHALATION Q4H Rx Instructions: space evenly during waking hours Discontinued diclofenac sodium 75 mg Tablet,Delayed Release (Dr/Ec) 75 mg PO BID Qty: 60 0RF Discharge Orders: Discharge Order (Routine); Ordered 05/17/25 Ordered By: Edgar Shoemaker Admission Data Admit Date/Time: 05/13/25 13:52 Attending Provider: Hilda Strauss Admit Provider: Patrick Mansfield Primary Care Provider: Ofe Mcgee Other Providers: Patrick Mansfield; [facility],Home Healthcare; [facility],Referral Center Other Interventions: Discharge Summary Assessment (RN) Last Done: 05/17/25 14:13 Supervising Physician Co-Signing Physician Notes I personally examined the patient and verified pappas points of history and exam, discussed case, and agree with decision making and plan documented by Dr. Shoemaker. 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 On admission for chest pain and acute on chronic diastolic CHF. ECG unchanged, chest x-ray without acute findings, and troponin negative. Discharged on home dose torsemide after good response to IV diuresis. She remains on 6L O2 trach collar, at baseline. Reviewed with patient that [facility] no longer will accept her insurance and that she will need to proceed to scheduled appointment with [facility] in [place] which is scheduled June 04, 2025. Patient will need stoma dilated to facilitate size 6 tracheostomy. Patient does not want plastic tracheostomy tube, she is adamant that she would like to maintain the metal. Patient is at a high risk of respiratory failure and will need a larger tracheostomy to facilitate invasive ventilation. Patient continues to refuse plastic tracheostomy. We reviewed this during her goals of care conversation during hospitalization considering increasing admissions, recommend PCP continue this conversation outpatient, and advised patient to discuss with her daughter/caregiver. Recommended followup with PCP within 3-5 days of discharge. Total attending time 48
== END 2025-05-17 15:28 | disposition home health service (06) | DRG 291 ==
LOC: ED 12:08 → 2W 13:52 → SUATTDRO 13:52 → 2W 14:36

== ENCOUNTER 2025-10-21 14:01 | Observation (INO) ==
--- NOTE | 2025-10-21 14:29 | Emergency Department Note ---
Impression & Plan Cellulitis of right lower leg ED Provider Note Diagnosis: Lower extremity cellulitis, abdominal wall cellulitis, hypoxia Disposition: Admission CHIEF COMPLAINT: Shortness of breath HPI: Patient is a 70-year-old female presenting with 2 to 3 days of illness. Patient states she has had worsening shortness of breath. Patient uses trach collar at baseline 2 L EMS had to bump her to 4 L. Patient states that she has been experiencing some left-sided chest pain. Patient states that this is intermittent. Patient states chills at home but no fevers. Patient has noticed a right lower extremity cellulitis that started 2 days prior. Patient uses a glucose monitor that goes and attaches to the abdomen the last 2 sites where it has been attached have developed cellulitis and wounds to the skin. Patient's daughter gave her leftover antibiotics from last time over the last day due to these 2 areas. PAST MEDICAL HISTORY: See Below PAST SURGICAL HISTORY: See Below SOCIAL HISTORY: See Below HOME MEDICATIONS: See Below ALLERGIES: See Below VITALS: See Below PHYSICAL EXAMINATION: GENERAL: Moderate distress EYE EXAM: Normal conjunctiva. OROPHARYNX: Moist mucus membranes. Grossly normal dentition. NECK: Supple, LUNGS: Diminished breath sounds HEART: NSR ABDOMEN: Abdomen soft, no tenderness, 2 areas to the abdominal wall with wound to the skin with mild surrounding cellulitis BACK: No CVA TTP. SKIN: No rashes and no bruising. UPPER EXTREMITIES: Upper extremities are grossly normal LOWER EXTREMITIES: Right lower extremity cellulitis from the foot half-way up the right tibia, 2+ dorsal pedis pulse NEURO EXAM: A&O x3,, normal speech, moves all 4 extremities PSYCH: Cooperative MEDICAL DECISION MAKING: Reviewed external documents: Last hospitalization from January 2025 History obtained from: Patient, daughter ER Course: Patient is 70-year-old female chronic trach and Payne presenting with worsening shortness of breath and right lower extremity cellulitis. Patient states symptoms started over the past 2 to 3 days time. Patient cellulitis to the right lower extremity good pulses are present there. Patient's cellulitis goes from the top of the right foot to the mid right tibial region. Patient uses 2 L nasal cannula but is using 4 L currently. Patient has trach collar. Patient given DuoNeb treatment. Patient's x-ray without pneumonia present. Patient case discussed with clinical pharmacist who recommends starting patient on cefepime. Patient admitted to hospital service further treatment and evaluation. Patient's lactate is not elevated at this time. Labs (independently interpreted) are significant for: Mild leukocytosis Imaging results (independently interpreted): Chest x-ray without pneumonia EKG interpretation (independently interpreted): Normal sinus rhythm no ST segment elevation or depression right bundle branch block left and anterior fascicular block Medications given: DuoNeb cefepime, Consultants: Hospitalist Triage Nursing notes reviewed and agree them. Vital Signs: reviewed and remarkable for: no significant abnormalities Past Med/Surg History Problem List Cellulitis of right lower leg (Acute) Morbid obesity (Acute) Nephrolithiasis (Chronic) Payne catheter in place (Chronic) Chronic hypoxic respiratory failure, on home oxygen therapy Tracheostomy dependence Leukocytosis (Acute) Vomiting (Acute) Elevated brain natriuretic peptide (BNP) level (Acute) Elevated troponin (Acute) CHF (congestive heart failure) (Acute) Respiratory acidosis (Acute) Obesity hypoventilation syndrome (Acute) Tracheostomy in place (Acute) Ambulatory dysfunction (Acute) Skin ulcer of groin, limited to breakdown of skin Morbid obesity with BMI of 60.0-69.9, adult Insulin-requiring or dependent type II diabetes mellitus Hypothyroidism Physical deconditioning Chronic kidney disease, stage 3 Dyslipidemia, goal LDL below 70 HTN, goal below 130/80 Chronic pain Iron deficiency Chronic hypoxic respiratory failure Diabetic nephropathy Seborrhea Back pain Open wound Lesion of left [place] kidney (Chronic) Hypersomnia with sleep apnea (Acute) Memory loss (Acute) MRSA (methicillin resistant staph aureus) culture positive (Chronic) "sputum 11/2015" History of hysterectomy (Chronic) Medical History Hyperglycemia Chest pain Chronic hypercapnic respiratory failure Acute on chronic heart failure with preserved ejection fraction Acute respiratory acidosis Acute respiratory failure with hypoxia New onset atrial flutter Parainfluenza infection Common migraine without aura Congestive heart failure Diabetic retinopathy associated with type 2 diabetes mellitus Hypoglycemia Chronic kidney disease, stage 3b C. difficile diarrhea Acute gout Wound, breast Right bundle branch block Presence of tracheostomy Morbid obesity Weakness Cor pulmonale CHF (congestive heart failure) Chronic diastolic heart failure cor pulmonale Chronic obstructive pulmonary disease Generalized weakness Fracture of distal end of right femur Hypothyroidism (acquired) Ureterolithiasis Vitamin D deficiency Adjustment disorder with depressed mood Tinea unguium GERD (gastroesophageal reflux disease) Anxiety Coronary artery disease RASHAAD (obstructive sleep apnea) Sepsis Surgical History History of tonsillectomy and adenoidectomy History of cholecystectomy History of appendectomy Family History Mother Coronary heart disease COPD (chronic obstructive pulmonary disease) Father Suicide Hung himself. Pt found him. Unknown Lung cancer Social History Smoking Status: Never smoker Tobacco Type: Cigarettes Second Hand Exposure: No; Do You Dip or Chew Tobacco: No; Hx Alcohol Use: No Hx Substance Use: No Preferred Language: Bulgarian Communication Ability: Effective Visual Impairment: Limited Hearing Ability: Normal Rn Camp Required: No Beliefs That Will Affect Care: None marital status: Current Living Situation: Family Current Living Situation Comment: lives with daughter current occupational status: disabled How many Children do You have: 1 Feels Safe at Home: Yes Diet: regular Diet Comment: Drinks 1 Boost drink supplement in the morning caffeine: Yes (1 coffee daily) Physical Activity Frequency: Does not Exercise Seatbelt Use: always Do you think of yourself as: straight/heterosexual Gender Identity: Female Assistive Devices: Glasses, Hospital Bed, Lift Chair, Mechanical Lift, Oxygen - at Night and Wheelchair Allergies Allergies Allergy/AdvReac Type Severity Reaction Status Date / Time animal dander Allergy Intermediate Sneezing, Unverified 07/19/25 09:12 itchy watery eyes and Difficulty Breathing Penicillins Allergy Intermediate Hives Verified 07/19/25 09:12 tree and shrub pollen Allergy Intermediate Sneezing, Unverified 07/19/25 09:12 itchy watery eyes and Difficulty Breathing amitriptyline Allergy Unknown CAN'T Verified 07/19/25 09:12 REMEMBER doxycycline Allergy Unknown CAN'T Verified 07/19/25 09:12 REMEMBER guaifenesin Allergy Unknown CAN'T Verified 07/19/25 09:12 REMEMBER metformin Allergy Unknown CAN'T Verified 07/19/25 09:12 REMEMBER phenylephrine Allergy Unknown CAN'T Verified 07/19/25 09:12 REMEMBER pseudoephedrine Allergy Unknown CAN'T Verified 07/19/25 09:12 REMEMBER tetracycline Allergy Unknown CAN'T Verified 07/19/25 09:12 REMEMBER venlafaxine [From Effexor] Allergy Unknown CAN'T Verified 07/19/25 09:12 REMEMBER gabapentin AdvReac Intermediate BECOMES Verified 07/19/25 09:12 AGGRESSIVE Home Meds Home Medications Medication Instructions Recorded Confirmed diclofenac sodium 1 % topical gel 4 g EXT QID PRN Pain 01/15/24 10/21/25 (Voltaren Arthritis Pain) naloxone 4 mg/actuation nasal 4 mg intranasal DIRECTED PRN 01/15/24 10/21/25 spray (Narcan) OVERDOSE bupropion HCl 100 mg tablet,12 hr 0 mg PO DIRECTED 02/03/24 10/21/25 sustained-release potassium chloride 20 mEq 20 meq PO BID 02/03/24 10/21/25 tablet,extended release isosorbide mononitrate 60 mg 60 mg PO QAM 06/13/24 10/21/25 tablet,extended release 24 hr levothyroxine 200 mcg tablet 0 mcg PO QAM 06/13/24 10/21/25 levothyroxine 25 mcg tablet 0 mcg PO QAM 06/13/24 10/21/25 metoprolol tartrate 25 mg tablet 25 mg PO BID 06/13/24 10/21/25 topiramate 100 mg tablet 100 mg PO DIRECTED 06/13/24 10/21/25 oxycodone 10 mg tablet 10 mg PO BID PRN Pain 09/14/24 10/21/25 empagliflozin 25 mg tablet 25 mg PO DAILY 03/25/25 10/21/25 (Jardiance) ipratropium 20 mcg-albuterol 100 1 puff inhalation Q4H shortness of 03/25/25 10/21/25 mcg/actuation mist for inhalation breath (Combivent Respimat) folic acid 1 mg tablet 1 mg PO DAILY 05/13/25 10/21/25 montelukast 10 mg tablet 10 mg PO DAILY 05/13/25 10/21/25 diclofenac sodium 75 mg 75 mg PO BID PRN ARTHRITIS 10/21/25 10/21/25 tablet,delayed release ketoconazole 2 % topical cream 1 applic topical DAILY 10/21/25 10/21/25 Previous Rx's Medication Instructions Recorded aspirin 81 mg tablet,delayed 81 mg PO QAM #30 tabs 04/06/23 release (Robert Low Dose Aspirin) atorvastatin 40 mg tablet 40 mg PO QPM #30 tabs 04/06/23 magnesium oxide 400 mg PO QAM #30 tabs 04/06/23 multivitamin 1 tab PO QAM #30 tabs 04/06/23 nitroglycerin 0.4 mg sublingual 0.4 mg sublingual DIRECTED PRN 04/06/23 tablet Chest Pain #25 tabs pantoprazole 40 mg tablet,delayed 40 mg PO DAILYBB #30 tabs 04/06/23 release sertraline 50 mg tablet 50 mg PO QAM #30 tabs 04/06/23 spironolactone 25 mg tablet 25 mg PO QAM #30 tabs 04/06/23 blood-glucose meter (OneTouch #1 ea 07/21/23 Ultra2 Meter) pen needle, diabetic 32 gauge x #150 ea 08/26/23" (BD Kaitlin 2nd Gen Pen Needle) pen needle, diabetic 32 gauge x #50 ea 08/26/23" (BD Kaitlin 2nd Gen Pen Needle) budesonide 0.5 mg/2 mL suspension 0.5 mg (2 mL) NEB BIDR #120 mL 03/02/24 for nebulization famotidine 20 mg tablet 20 mg PO DAILY PRN heartburn #30 03/02/24 tabs blood sugar diagnostic (OneTouch #400 ea 08/27/24 Ultra Test strips) torsemide 10 mg tablet 30 mg (3 x 10 mg) PO QAM #90 tabs 03/13/25 Portable Oxygen #1 ea 07/26/25 ipratropium 0.5 mg-albuterol 3 mg 3 ml inhalation Q4H PRN COUGHING, 07/26/25 (2.5 mg base)/3 mL nebulization WHEEZING, SHORTNESS OF BREATH #180 soln mL blood sugar diagnostic (Accu-Chek #400 ea 08/09/25 Guide test strips) nebulizers #1 ea 08/12/25 nebulizers (Aeroneb Go Nebulizer) #1 ea 08/12/25 insulin aspart U-100 100 unit/mL See Rx Instructions subcut DAILY 10/14/25 subcutaneous solution (Novolog #100 mL U-100 Insulin aspart) Results & Data (ED) Vital Signs Vital Signs - 24 hr 10/21/25 14:03 10/21/25 14:03 10/21/25 14:15 Temperature 37 C Temperature Source Oral Pulse Rate 76 82 Pulse Rate [Right Finger] Pulse Rate from SpO2 Sensor Respiratory Rate 25 H 18 Respiratory Effort / Characteristics Spontaneous Respiratory Pattern Regular Blood Pressure 153/80 H Blood Pressure [Right Arm] Blood Pressure Mean 104 Blood Pressure Mean [Right Arm] Pulse Oximetry 97 96 Oxygen Delivery Method Trach Collar Trach Collar Oxygen Flow Rate 4 4 Sepsis Recent Fever Within 48 Hours No Sepsis New/Unexplained Change in Mental Status No Sepsis Action Taken by Nursing No Action Required 10/21/25 14:16 10/21/25 14:21 10/21/25 14:30 Temperature Temperature Source Pulse Rate 79 79 78 Pulse Rate [Right Finger] Pulse Rate from SpO2 Sensor 79 79 Respiratory Rate 23 17 Respiratory Effort / Characteristics Respiratory Pattern Blood Pressure Blood Pressure [Right Arm] Blood Pressure Mean Blood Pressure Mean [Right Arm] Pulse Oximetry 98 97 Oxygen Delivery Method Oxygen Flow Rate Sepsis Recent Fever Within 48 Hours Sepsis New/Unexplained Change in Mental Status Sepsis Action Taken by Nursing 10/21/25 14:30 10/21/25 14:30 10/21/25 14:30 Temperature Temperature Source Pulse Rate Pulse Rate [Right Finger] Pulse Rate from SpO2 Sensor Respiratory Rate Respiratory Effort / Characteristics Respiratory Pattern Blood Pressure 153/80 H 153/80 H 153/80 H Blood Pressure [Right Arm] Blood Pressure Mean 110 110 110 Blood Pressure Mean [Right Arm] Pulse Oximetry Oxygen Delivery Method Oxygen Flow Rate Sepsis Recent Fever Within 48 Hours Sepsis New/Unexplained Change in Mental Status Sepsis Action Taken by Nursing 10/21/25 14:30 10/21/25 14:30 10/21/25 14:42 Temperature Temperature Source Pulse Rate 82 Pulse Rate [Right Finger] Pulse Rate from SpO2 Sensor 82 Respiratory Rate 25 H Respiratory Effort / Characteristics Respiratory Pattern Blood Pressure 153/80 H 153/80 H Blood Pressure [Right Arm] Blood Pressure Mean 110 110 Blood Pressure Mean [Right Arm] Pulse Oximetry 96 Oxygen Delivery Method Oxygen Flow Rate Sepsis Recent Fever Within 48 Hours Sepsis New/Unexplained Change in Mental Status Sepsis Action Taken by Nursing 10/21/25 14:51 10/21/25 14:59 10/21/25 15:00 Temperature Temperature Source Pulse Rate 82 Pulse Rate [Right Finger] 78 Pulse Rate from SpO2 Sensor 80 Respiratory Rate 16 20 Respiratory Effort / Characteristics Spontaneous Respiratory Pattern Blood Pressure 115/76 Blood Pressure [Right Arm] Blood Pressure Mean 101 Blood Pressure Mean [Right Arm] Pulse Oximetry 96 98 Oxygen Delivery Method Trach Collar Oxygen Flow Rate 4 Sepsis Recent Fever Within 48 Hours Sepsis New/Unexplained Change in Mental Status Sepsis Action Taken by Nursing 10/21/25 15:00 10/21/25 15:00 10/21/25 15:00 Temperature Temperature Source Pulse Rate Pulse Rate [Right Finger] Pulse Rate from SpO2 Sensor Respiratory Rate Respiratory Effort / Characteristics Respiratory Pattern Blood Pressure 115/76 115/76 115/76 Blood Pressure [Right Arm] Blood Pressure Mean 101 101 101 Blood Pressure Mean [Right Arm] Pulse Oximetry Oxygen Delivery Method Oxygen Flow Rate Sepsis Recent Fever Within 48 Hours Sepsis New/Unexplained Change in Mental Status Sepsis Action Taken by Nursing 10/21/25 15:00 10/21/25 15:00 10/21/25 15:12 Temperature Temperature Source Pulse Rate 79 81 Pulse Rate [Right Finger] Pulse Rate from SpO2 Sensor 82 Respiratory Rate 15 15 Respiratory Effort / Characteristics Respiratory Pattern Blood Pressure 115/76 Blood Pressure [Right Arm] Blood Pressure Mean 101 Blood Pressure Mean [Right Arm] Pulse Oximetry 92 Oxygen Delivery Method Oxygen Flow Rate Sepsis Recent Fever Within 48 Hours Sepsis New/Unexplained Change in Mental Status Sepsis Action Taken by Nursing 10/21/25 15:21 10/21/25 15:30 10/21/25 15:30 Temperature Temperature Source Pulse Rate 83 Pulse Rate [Right Finger] Pulse Rate from SpO2 Sensor 79 Respiratory Rate 14 Respiratory Effort / Characteristics Respiratory Pattern Blood Pressure 129/71 129/71 Blood Pressure [Right Arm] Blood Pressure Mean 86 86 Blood Pressure Mean [Right Arm] Pulse Oximetry 98 Oxygen Delivery Method Oxygen Flow Rate Sepsis Recent Fever Within 48 Hours Sepsis New/Unexplained Change in Mental Status Sepsis Action Taken by Nursing 10/21/25 15:30 10/21/25 15:30 10/21/25 15:30 Temperature Temperature Source Pulse Rate 83 Pulse Rate [Right Finger] Pulse Rate from SpO2 Sensor 88 Respiratory Rate 19 Respiratory Effort / Characteristics Respiratory Pattern Blood Pressure 129/71 129/71 Blood Pressure [Right Arm] Blood Pressure Mean 86 86 Blood Pressure Mean [Right Arm] Pulse Oximetry 99 Oxygen Delivery Method Oxygen Flow Rate Sepsis Recent Fever Within 48 Hours Sepsis New/Unexplained Change in Mental Status Sepsis Action Taken by Nursing 10/21/25 15:42 10/21/25 15:51 10/21/25 16:00 Temperature Temperature Source Pulse Rate 89 89 86 Pulse Rate [Right Finger] Pulse Rate from SpO2 Sensor 87 88 87 Respiratory Rate 25 H 18 21 Respiratory Effort / Characteristics Respiratory Pattern Blood Pressure Blood Pressure [Right Arm] Blood Pressure Mean Blood Pressure Mean [Right Arm] Pulse Oximetry 98 98 100 Oxygen Delivery Method Oxygen Flow Rate Sepsis Recent Fever Within 48 Hours Sepsis New/Unexplained Change in Mental Status Sepsis Action Taken by Nursing 10/21/25 16:12 10/21/25 16:21 10/21/25 16:30 Temperature Temperature Source Pulse Rate 86 86 86 Pulse Rate [Right Finger] Pulse Rate from SpO2 Sensor 87 86 87 Respiratory Rate 20 15 22 Respiratory Effort / Characteristics Respiratory Pattern Blood Pressure Blood Pressure [Right Arm] Blood Pressure Mean Blood Pressure Mean [Right Arm] Pulse Oximetry 99 98 98 Oxygen Delivery Method Oxygen Flow Rate Sepsis Recent Fever Within 48 Hours Sepsis New/Unexplained Change in Mental Status Sepsis Action Taken by Nursing 10/21/25 16:36 10/21/25 16:36 Temperature Temperature Source Pulse Rate 86 Pulse Rate [Right Finger] 85 Pulse Rate from SpO2 Sensor 85 Respiratory Rate 19 19 Respiratory Effort / Characteristics Respiratory Pattern Blood Pressure Blood Pressure [Right Arm] 123/80 Blood Pressure Mean Blood Pressure Mean [Right Arm] 94 Pulse Oximetry 97 98 Oxygen Delivery Method Trach Collar Oxygen Flow Rate Sepsis Recent Fever Within 48 Hours Sepsis New/Unexplained Change in Mental Status Sepsis Action Taken by Nursing Laboratory Data 10/21/25 14:21 10/21/25 14:21 Lab Results 10/21/25 10/21/25 10/21/25 Range/Units 14:21 14:39 14:55 WBC 11.31 H (4.8-10.8) K/ul RBC 4.40 (4.20-5.40) M/uL Hgb 11.7 L (12.0-16.0) g/dL Hct 40.4 (37.0-47.0) % MCV 91.8 (80.0-100.0) fL MCH 26.6 (25.0-34.0) pg MCHC 29.0 L (32.0-36.0) g/dL RDW Std Deviation 55.9 H (36.4-46.3) fL RDW Coeff of Amee 16.4 H (11.5-14.5) % Plt Count 272 (130-400) K/uL MPV 9.2 L (9.4-12.4) fL Immature Gran % (Auto) 1.6 % Neut % (Auto) 78.9 % Lymph % (Auto) 9.9 % Holmes % (Auto) 6.9 % Eos % (Auto) 2.3 % Baso % (Auto) 0.4 % Neut # (Auto) 8.93 H (1.40-6.50) K/uL Lymph # (Auto) 1.12 L (1.20-3.40) K/uL Holmes # (Auto) 0.78 H (0.11-0.59) K/uL Eos # (Auto) 0.26 (0.00-0.50) K/uL Baso # (Auto) 0.04 (0.00-0.20) K/uL Immature Gran # (Auto) 0.18 (0.01-0.20) K/uL Absolute Nucleated RBC 0.02 (0.00-0.12) K/uL Nucleated RBC % (auto) 0.2 % Sodium 137 (136-145) mmol/L Potassium 4.2 (3.5-5.1) mmol/L Chloride 100 (98-107) mmol/L Carbon Dioxide 31 (21-32) mmol/L Anion Gap 6 (3-11) BUN 34 H (6-23) mg/dl Creatinine 1.71 H (0.6-1.2) mg/dl Est Cr Clr Drug Dosing Not Reportable eGFR 32.03 BUN/Creatinine Ratio 19.9 (10-20) Glucose 121 H (70-99(Fasting)) mg/dl Lactate 0.9 (0.4-2.0) mmol/L Calcium 8.9 (8.6-10.3) mg/dl Magnesium 2.2 (1.7-2.4) mg/dl Total Bilirubin 0.3 (0.2-1.0) mg/dl Direct Bilirubin 0.0 (0-0.2) mg/dl AST 26 (13-39) U/L ALT 36 (7-52) U/L Alkaline Phosphatase 122 H (34-104) U/L Troponin I High Sens 7.9 (0-14) pg/ml B-Natriuretic Peptide 79 (0-100) pg/ml Total Protein 7.9 (6.0-8.3) gm/dl Albumin 2.9 L (3.4-5.0) gm/dl Procalcitonin 0.33 (0-0.5) ng/ml SARS-CoV-2 (PCR) NEGATIVE (Negative) Influenza Type A (PCR) Negative (Neg) Influenza Type B (PCR) Negative (Neg) RSV (RT-PCR) Negative (Neg) Administered Medications Albuterol (Albut/Ipratrop 3mg/0.5mg Neb 3 Ml Vial) 3 ml INH Q4R ASIYA Stop: 11/20/25 22:59 Last Admin: 10/21/25 22:55 Dose: 3 ml Documented By: AJAY Atorvastatin Calcium (Atorvastatin 40 Mg Tab) 40 mg PO QPM ASIYA Stop: 11/20/25 20:59 Last Admin: 10/21/25 21:30 Dose: 40 mg Documented By: RENAE Bacitracin (Bacitracin Oint 14 Gm Tube) 1 appln EXT TID ASIYA Stop: 11/20/25 20:59 Last Admin: 10/21/25 21:38 Dose: 1 appln Documented By: RENAE Budesonide (Budesonide 0.5 Mg/2 Ml Vial (Pulmicort)) 0.5 mg NEB BIDR ASIYA Stop: 11/20/25 18:59 Last Admin: 10/21/25 19:14 Dose: 0.5 mg Documented By: AJAY Bupropion HCl (Bupropion Sr 100 Mg Tabcr) 200 mg PO HS ASIYA Stop: 11/20/25 20:59 Last Admin: 10/21/25 21:31 Dose: 200 mg Documented By: RENAE Enoxaparin Sodium (Enoxaparin Inj 40 Mg/0.4 Ml Syr) 40 mg SQ Q24H ASIYA Stop: 11/20/25 18:59 Last Admin: 10/21/25 21:29 Dose: 40 mg Documented By: RENAE Cefazolin Sodium (Ancef 2000mg) 2,000 mg in 15 mls @ 2.5 mls/min IV Q8H ASIYA Stop: 10/28/25 23:29 Last Admin: 10/21/25 23:27 Dose: 2.5 mls/min Documented By: MARLENA Insulin Glargine (Lantus Per Unit Charge) 10 units SQ BID ASIYA Stop: 11/20/25 21:59 Last Admin: 10/21/25 23:27 Dose: 10 units Documented By: MARLENA Co-signed By: ONEIDA Metoprolol Tartrate (Metoprolol Tartrate 25 Mg Tab) 25 mg PO BID ASIYA Stop: 11/20/25 20:59 Last Admin: 10/21/25 21:31 Dose: 25 mg Documented By: RENAE Potassium Chloride (Potassium Chloride Crtab 20 Meq Tabcr) 20 meq PO BID ASIYA Stop: 11/20/25 20:59 Last Admin: 10/21/25 23:27 Dose: 20 meq Documented By: MARLENA Topiramate (Topiramate 100 Mg Tab) 200 mg PO HS ASIYA Stop: 11/20/25 20:59 Last Admin: 10/21/25 21:32 Dose: 200 mg Documented By: RENAE Discontinued Medications Albuterol (Albut/Ipratrop 3mg/0.5mg Neb 3 Ml Vial) 3 ml NEB NOW STA; Protocol Stop: 10/21/25 14:27 Last Admin: 10/21/25 14:59 Dose: 3 ml Documented By: LYLA Albuterol (Albut/Ipratrop 3mg/0.5mg Neb 3 Ml Vial) Confirm Administered Dose 3 ml .ROUTE .STK-MED ONE Stop: 10/21/25 19:13 Last Admin: 10/21/25 19:15 Dose: 3 ml Documented By: AJAY Cefepime HCl (Maxipime 2000mg) 2,000 mg in 20 mls @ 5 mls/min IV NOW STA; Protocol Stop: 10/21/25 16:15 Last Admin: 10/21/25 17:03 Dose: 5 mls/min Documented By: alysia Insulin Aspart (Insulin, Rapid-Acting Pump) 0 each N/A [facility]; Protocol Stop: 11/20/25 20:59 Last Admin: 10/21/25 21:55 Dose: Not Given Documented By: RENAE Imaging Data Radiologist's Impression: Chest X-Ray 10/21/25 14:25 XR chest 1V portable CLINICAL HISTORY: Sepsis. COMPARISON STUDY: Chest radiograph May 15, 2025. Chest CT January 17, 2024. FINDINGS: Tracheostomy tube is in place. Cardiomegaly is unchanged. There is no radiographic evidence for pulmonary edema. There is no pneumothorax or pleural effusion. No consolidation is identified. IMPRESSION: No acute cardiopulmonary findings. Stable cardiomegaly. ACT 112: Negative or not required by law. Electronically signed by: Toni Ohara M.D. 10/21/2025 3:48 PM Discharge Plan Visit Data Chief Complaint: Illness Stated Complaint: SOB, ED Provider: Wagner Farah Discharge Problem: Cellulitis of right lower leg Patient Disposition: Admitted As Inpatient Condition: Fair Discharge Instructions Interventions: ED Discharge Assessment Last Done: 10/21/25 22:22
[2025-10-21 14:38] LABS: Hematocrit (blood only) 40.4 % (37.0-47.0); Hemoglobin 11.7 g/dL (12.0-16.0); Immature Granulocytes # (auto) 0.18 K/uL (0.01-0.20); Immature Granulocytes % (auto) 1.6 %; Mean Corpuscular Hemoglobin 26.6 pg (25.0-34.0); Mean Corpuscular Volume 91.8 fL (80.0-100.0); Platelet Count 272 K/uL (130-400); RDW Standard Deviation 55.9 fL (36.4-46.3); Red Blood Count 4.40 M/uL (4.20-5.40); White Blood Count 11.31 K/ul (4.8-10.8)
[2025-10-21 14:59] LABS: Alanine Aminotransferase 36 U/L (7-52); Albumin Level 2.9 gm/dl (3.4-5.0); Alkaline Phosphatase 122 U/L (34-104); Anion Gap 6 (3-11); Bilirubin,Total 0.3 mg/dl (0.2-1.0); Blood Urea Nitrogen 34 mg/dl (6-23); Calcium 8.9 mg/dl (8.6-10.3); Carbon Dioxide 31 mmol/L (21-32); Chloride 100 mmol/L (98-107); Glucose 121 mg/dl (70-99(Fasting)); Magnesium 2.2 mg/dl (1.7-2.4); Potassium 4.2 mmol/L (3.5-5.1); Sodium 137 mmol/L (136-145); Total Protein 7.9 gm/dl (6.0-8.3)
[2025-10-21] MEDS: ALBUT/IPRATROP 3MG/0.5MG NEB 3 ML VIAL NEB STA (14:59)
--- NOTE | 2025-10-21 15:36 | Electrocardiogram Report ---
Test Reason : Blood Pressure : */* mmHG Vent. Rate : 83 BPM Atrial Rate : 83 BPM P-R Int : 216 ms QRS Dur : 134 ms QT Int : 424 ms P-R-T Axes : 76 -48 33 degrees QTcB Int : 498 ms Sinus rhythm with 1st degree A-V block with Premature supraventricular complexes and Premature ventri cular complexes Right bundle branch block Left anterior fascicular block Bifascicular block Septal infarct , age undetermined Possible Lateral infarct (cited on or before 04-Feb-2024) Abnormal ECG When compared with ECG of 15-May-2025 11:51, Premature ventricular complexes are now Present Premature supraventricular complexes are now Present Confirmed by Cy Aponte ([id number]) on 10/21/2025 3:36:24 PM Referred By: Confirmed By: Cy Aponte
[2025-10-21 15:42] LABS: Influenza A virus by PCR Negative (Neg); Influenza B virus by PCR Negative (Neg); SARS CoV2 RNA(COVID-19) Ceph NEGATIVE (Negative)
--- NOTE | 2025-10-21 15:50 | XRay Report ---
XR chest 1V portable CLINICAL HISTORY: Sepsis. COMPARISON STUDY: Chest radiograph May 15, 2025. Chest CT January 17, 2024. FINDINGS: Tracheostomy tube is in place. Cardiomegaly is unchanged. There is no radiographic evidence for pulmonary edema. There is no pneumothorax or pleural effusion. No consolidation is identified. IMPRESSION: No acute cardiopulmonary findings. Stable cardiomegaly. ACT 112: Negative or not required by law. Electronically signed by: Toni Ohara M.D. 10/21/2025 3:48 PM
--- NOTE | 2025-10-21 16:50 | History & Physical Report ---
Date of Service October 21, 2025 Assessment & Plan (1) Cellulitis: (2) CKD (chronic kidney disease): (3) CHF (congestive heart failure): (4) Type 2 diabetes mellitus: Plan #Right lower extremity cellulitisno severe sepsis or septic [place] [facility] [place] exams. While exam is most consistent with cellulitis, obviously she carries risk for venous thromboembolic disease and we will check a venous Doppler for completeness/to rule out DVT #increased oxygenin line with her chronic hypoxic and hypercapnic respiratory failure, there was concern about anything acutein discussion with the patient she has no new respiratory symptoms (she is most prone to acute on chronic diastolic CHF exacerbations, but her chronic HFpEF appears to be compensated at this time) and certainly somewhat susceptible to respiratory infections, but nothing appears consistent with a pneumonia right now eithershe has no new symptoms, a fairly stable physical exam for her, and her caregiver notes that the oxygen was increased for unclear reasons. No acute managementfollow closely, manage if anything evolves. #Type 2 diabetes on insulin/insulin pumpfingersticks and insulin pump. Sometimes in the hospital patient prefers for us to manage things with basal bolus insulin, if she does we will transition over to this. But we will continue her pump for now. Last A1c was 7.1 back in . #Chronic diastolic CHF/chronic HFpEFappears to be compensatedobviously with her body habitus it can be somewhat difficult, and if her new oxygen requirement is real and due to any pathology, I would suspect acute on chronic HFpEFbut right now she appears compensated. Continue her home dosing of diuretics and follow closely. #Morbid obesity with BMI above 60root cause of a lot of her medical problems. #CKD stage ~3 maybe 4 - follow BMP #DVT proph - lovenox History of Present Illness Chief Complaint: Right leg swelling, abdominal wounds Primary Care Provider: Diana Peralta patient is a very pleasant 70-year-old female well-known to me from prior admissions. She was in her usual state of health until about 2 days ago whenever she started with some right lower extremity swelling that progressed over the last day or so. This, combined with the fact that she had a couple of small abdominal wounds with a little bit of surrounding redness let her and her caregiver to have her come to the ER. She was also found to be on higher oxygen than her baselinebut in discussion with the patient herself she denies any new shortness of breath cough sputum or any respiratory symptoms at all; her caregiver notes that she was not seeing any real indication that required the increasing oxygen, but rather that she was told to increase it by the patient's PCP for unclear reasons to either patient or caregiver. Allergies Allergy/AdvReac Type Severity Reaction Status Date / Time animal dander Allergy Intermediate Sneezing, Unverified 07/19/25 09:12 itchy watery eyes and Difficulty Breathing Penicillins Allergy Intermediate Hives Verified 07/19/25 09:12 tree and shrub pollen Allergy Intermediate Sneezing, Unverified 07/19/25 09:12 itchy watery eyes and Difficulty Breathing amitriptyline Allergy Unknown CAN'T Verified 07/19/25 09:12 REMEMBER doxycycline Allergy Unknown CAN'T Verified 07/19/25 09:12 REMEMBER guaifenesin Allergy Unknown CAN'T Verified 07/19/25 09:12 REMEMBER metformin Allergy Unknown CAN'T Verified 07/19/25 09:12 REMEMBER phenylephrine Allergy Unknown CAN'T Verified 07/19/25 09:12 REMEMBER pseudoephedrine Allergy Unknown CAN'T Verified 07/19/25 09:12 REMEMBER tetracycline Allergy Unknown CAN'T Verified 07/19/25 09:12 REMEMBER venlafaxine [From Effexor] Allergy Unknown CAN'T Verified 07/19/25 09:12 REMEMBER gabapentin AdvReac Intermediate BECOMES Verified 07/19/25 09:12 AGGRESSIVE Home Medications Medication Instructions Recorded Confirmed Type aspirin 81 mg tablet,delayed 81 mg PO QAM #30 tabs 04/06/23 07/19/25 Rx release (Robert Low Dose Aspirin) atorvastatin 40 mg tablet 40 mg PO QPM #30 tabs 04/06/23 07/19/25 Rx magnesium oxide 400 mg PO QAM #30 tabs 04/06/23 07/19/25 Rx multivitamin 1 tab PO QAM #30 tabs 04/06/23 07/19/25 Rx nitroglycerin 0.4 mg sublingual 0.4 mg sublingual DIRECTED PRN 04/06/23 07/19/25 Rx tablet Chest Pain #25 tabs pantoprazole 40 mg tablet,delayed 40 mg PO DAILYBB #30 tabs 04/06/23 07/19/25 Rx release sertraline 50 mg tablet 50 mg PO QAM #30 tabs 04/06/23 07/19/25 Rx spironolactone 25 mg tablet 25 mg PO QAM #30 tabs 04/06/23 07/19/25 Rx blood-glucose meter (OneTouch #1 ea 07/21/23 07/19/25 Rx Ultra2 Meter) pen needle, diabetic 32 gauge x #150 ea 08/26/23 07/19/25 Rx 5/32" (BD Kaitlin 2nd Gen Pen Needle) pen needle, diabetic 32 gauge x #50 ea 08/26/23 07/19/25 Rx 5/32" (BD Kaitlin 2nd Gen Pen Needle) diclofenac sodium 1 % topical gel 4 g EXT QID PRN Pain 01/15/24 07/19/25 History (Voltaren Arthritis Pain) naloxone 4 mg/actuation nasal 4 mg intranasal DIRECTED PRN 01/15/24 07/19/25 History spray (Narcan) OVERDOSE bupropion HCl 100 mg tablet,12 hr See Rx Instructions .Route .COMPLEX 02/03/24 07/19/25 History sustained-release potassium chloride 20 mEq 20 meq PO BID 02/03/24 07/19/25 History tablet,extended release budesonide 0.5 mg/2 mL suspension 0.5 mg (2 mL) NEB BIDR #120 mL 03/02/24 07/19/25 Rx for nebulization famotidine 20 mg tablet 20 mg PO DAILY PRN heartburn #30 03/02/24 07/19/25 Rx tabs isosorbide mononitrate 60 mg 60 mg PO QAM 06/13/24 07/19/25 History tablet,extended release 24 hr levothyroxine 200 mcg tablet 200 mcg PO QAM 06/13/24 07/19/25 History levothyroxine 25 mcg tablet 25 mcg PO QAM 06/13/24 07/19/25 History metoprolol tartrate 25 mg tablet 25 mg PO BID 06/13/24 07/19/25 History topiramate 100 mg tablet See Rx Instructions .Route .COMPLEX 06/13/24 07/19/25 History blood sugar diagnostic (OneTouch #400 ea 08/27/24 07/19/25 Rx Ultra Test strips) oxycodone 10 mg tablet 10 mg PO BID PRN Pain 09/14/24 07/19/25 History torsemide 10 mg tablet 30 mg (3 x 10 mg) PO QAM #90 tabs 03/13/25 07/19/25 Rx empagliflozin 25 mg tablet 25 mg PO DAILY 03/25/25 07/19/25 History (Jardiance) ipratropium 20 mcg-albuterol 100 1 puff inhalation Q4H shortness of 03/25/25 07/19/25 History mcg/actuation mist for inhalation breath (Combivent Respimat) folic acid 1 mg tablet 1 mg PO DAILY 05/13/25 07/19/25 History montelukast 10 mg tablet 10 mg PO DAILY 05/13/25 07/19/25 History Portable Oxygen #1 ea 07/26/25 07/26/25 Rx ipratropium 0.5 mg-albuterol 3 mg 3 ml inhalation Q4H PRN COUGHING, 07/26/2504/14 Rx (2.5 mg base)/3 mL nebulization WHEEZING, SHORTNESS OF BREATH #180 soln mL blood sugar diagnostic (Accu-Chek #400 ea 08/09/25 Rx Guide test strips) nebulizers #1 ea 08/12/25 Rx nebulizers (Aeroneb Go Nebulizer) #1 ea 08/12/25 Rx insulin aspart U-100 100 unit/mL See Rx Instructions subcut DAILY 10/14/25 Rx subcutaneous solution (Novolog #100 mL U-100 Insulin aspart) Past Med/Surg History Problem List Morbid obesity (Acute) Nephrolithiasis (Chronic) Payne catheter in place (Chronic) Chronic hypoxic respiratory failure, on home oxygen therapy Tracheostomy dependence Leukocytosis (Acute) Vomiting (Acute) Elevated brain natriuretic peptide (BNP) level (Acute) Elevated troponin (Acute) CHF (congestive heart failure) (Acute) Respiratory acidosis (Acute) Obesity hypoventilation syndrome (Acute) Tracheostomy in place (Acute) Ambulatory dysfunction (Acute) Skin ulcer of groin, limited to breakdown of skin Morbid obesity with BMI of 60.0-69.9, adult Insulin-requiring or dependent type II diabetes mellitus Hypothyroidism Physical deconditioning Chronic kidney disease, stage 3 Dyslipidemia, goal LDL below 70 HTN, goal below 130/80 Chronic pain Iron deficiency Chronic hypoxic respiratory failure Diabetic nephropathy Seborrhea Back pain Open wound Lesion of left [place] kidney (Chronic) Hypersomnia with sleep apnea (Acute) Memory loss (Acute) MRSA (methicillin resistant staph aureus) culture positive (Chronic) "sputum 11/2015" History of hysterectomy (Chronic) Medical History Hyperglycemia Chest pain Chronic hypercapnic respiratory failure Acute on chronic heart failure with preserved ejection fraction Acute respiratory acidosis Acute respiratory failure with hypoxia New onset atrial flutter Parainfluenza infection Common migraine without aura Congestive heart failure Diabetic retinopathy associated with type 2 diabetes mellitus Hypoglycemia Chronic kidney disease, stage 3b C. difficile diarrhea Acute gout Wound, breast Right bundle branch block Presence of tracheostomy Morbid obesity Weakness Cor pulmonale CHF (congestive heart failure) Chronic diastolic heart failure cor pulmonale Chronic obstructive pulmonary disease Generalized weakness Fracture of distal end of right femur Hypothyroidism (acquired) Ureterolithiasis Vitamin D deficiency Adjustment disorder with depressed mood Tinea unguium GERD (gastroesophageal reflux disease) Anxiety Coronary artery disease RASHAAD (obstructive sleep apnea) Sepsis Surgical History History of tonsillectomy and adenoidectomy History of cholecystectomy History of appendectomy Family History Mother Coronary heart disease COPD (chronic obstructive pulmonary disease) Father Suicide Hung himself. Pt found him. Unknown Lung cancer Social History Smoking Status: Never smoker Tobacco Type: Cigarettes Second Hand Exposure: No; Do You Dip or Chew Tobacco: No; Hx Alcohol Use: No Hx Substance Use: No Preferred Language: [place] Communication Ability: Effective Visual Impairment: Limited Hearing Ability: Normal Full Stack Software Developer Required: No Beliefs That Will Affect Care: None marital status: Current Living Situation: Family Current Living Situation Comment: lives with daughter current occupational status: disabled How many Children do You have: 1 Feels Safe at Home: Yes Diet: regular Diet Comment: Drinks 1 Boost drink supplement in the morning caffeine: Yes (1 coffee daily) Physical Activity Frequency: Does not Exercise Seatbelt Use: always Do you think of yourself as: straight/heterosexual Gender Identity: Female Assistive Devices: Glasses, Hospital Bed, Lift Chair, Mechanical Lift, Oxygen - at Night and Wheelchair Review of Systems Review of Systems: All systems reviewed & are unremarkable except as noted in HPI & below Physical Exam Physical Exam: In general she is awake alert oriented pleasant no distress. HEENT normocephalic atraumatic mucous membranes moist. Metal tracheostomy in place. Cardio is distant. Lungs faint scattered rhonchi no rales no wheezes no accessory muscle use good effort. Abdomen is protuberant, there are 2 small shallow ulcerations on her right lower lateral abdominal wall the larger of the 2 with a mild degree of surrounding erythema that is nontender. Extremities her right lower extremity is red swollen and somewhat tender. Neuro shows cranial nerves II through XII to be grossly intact gross motor and sensory intact. Results & Data Results & Data Vital Signs (Past 12 Hours) Vital Signs Temp Pulse Pulse Resp BP Pulse Ox O2 Del Method 10/21/25 14:59 78 20 98 Trach Collar 10/21/25 14:16 79 10/21/25 14:03 96 Trach Collar 10/21/25 14:03 98.6 F 76 25 H 153/80 H 97 Trach Collar O2 Flow Rate 10/21/25 14:59 4 10/21/25 14:16 10/21/25 14:03 4 10/21/25 14:03 4 Code Status & VTE Plan VTE Prophylaxis Plan VTE Prophylaxis will be ordered: Yes PG Care Time/CCT Total # of Minutes Spent Total Time Spent with Patient: Total time spent is greater than 50% in coordination of care (as documented) at patient's floor/unit and/or counseling patient: Coding Level of Care Code 69164 INT INP/OBS CARE 3/75MIN Diagnoses Cellulitis L03.115 Laterality: right Site of cellulitis: extremity Site of cellulitis of extremity: lower extremity CKD (chronic kidney disease) N18.9 CHF (congestive heart failure) I50.9 Heart failure chronicity: acute on chronic Heart failure type: unspecified Type 2 diabetes mellitus E11.9 (1) Cellulitis Laterality: right Site of cellulitis: extremity Site of cellulitis of extremity: lower extremity Qualified Code(s): L03.115 - Cellulitis of right lower limb (3) CHF (congestive heart failure) Heart failure chronicity: acute on chronic Heart failure type: unspecified Qualified Code(s): I50.9 - Heart failure, unspecified
[2025-10-21] MEDS: CEFEPIME 2000MG 2,000 MG/20 ML SYR IV STA (17:03)
[2025-10-21] MEDS ORDERED: ALBUT/IPRATROP 3MG/0.5MG NEB 3 ML VIAL INH PRN (18:13)
[2025-10-21] MEDS ORDERED: ALUMINUM/MAGNESIUM SUSP 30 ML UDC PO PRN (18:13)
[2025-10-21] MEDS ORDERED: MAGNESIUM HYDROXIDE SUSP 30 ML UDC PO PRN (18:13)
[2025-10-21] MEDS ORDERED: MELATONIN 3 MG TAB PO PRN (18:13)
[2025-10-21] MEDS ORDERED: TOPIRAMATE 100 MG TAB PO SCH (18:13)
[2025-10-21] MEDS ORDERED: ONDANSETRON INJ 2 MG/ML 2 ML VIAL IV PRN (18:13)
[2025-10-21] MEDS ORDERED: ACETAMINOPHEN 325 MG TAB PO PRN (18:13)
[2025-10-21] MEDS ORDERED: NITROGLYCERIN SL 0.4 MG/TAB TAB SL PRN (18:13)
[2025-10-21] MEDS ORDERED: GLUCOSE 40% GEL 15 GM TUBE PO PRN ×2 (19:00→21:52)
[2025-10-21] MEDS ORDERED: GLUCAGON FOR INJ 1 MG VIAL SQ PRN ×2 (19:00→21:52)
[2025-10-21] MEDS ORDERED: CARBOHYDRATES FOR HYPOGLYCEMIA PO PRN ×2 (19:00→21:52)
[2025-10-21] MEDS ORDERED: GLUCOSE 10 TAB/TUBE PO PRN ×2 (19:00→21:52)
[2025-10-21] MEDS ORDERED: INSULIN ASPART 100 UNITS/ML VIAL SC PRN (19:00)
[2025-10-21] MEDS ORDERED: DEXTROSE 50% 50 ML SYRINGE IV PRN ×2 (19:00→21:52)
[2025-10-21] MEDS: BUDESONIDE 0.5 MG/2 ML VIAL (PULMICORT) NEB SCH (19:14)
[2025-10-21] MEDS: ALBUT/IPRATROP 3MG/0.5MG NEB 3 ML VIAL ONE (19:15)
[2025-10-21] MEDS ORDERED: INSULIN, Rapid-Acting PUMP SCH (21:00)
[2025-10-21] MEDS: ENOXAPARIN INJ 40 MG/0.4 ML SYR SQ SCH (21:29)
[2025-10-21] MEDS: ATORVASTATIN 40 MG TAB PO SCH (21:30)
[2025-10-21] MEDS: METOPROLOL TARTRATE 25 MG TAB PO SCH (21:31)
[2025-10-21] MEDS: TOPIRAMATE 100 MG TAB PO SCH (21:32)
[2025-10-21] MEDS: BACITRACIN OINT 14 GM TUBE EXT SCH (21:38)
[2025-10-21] MEDS: INSULIN, Rapid-Acting PUMP SCH (21:55)
[2025-10-21] MEDS: ALBUT/IPRATROP 3MG/0.5MG NEB 3 ML VIAL INH SCH (22:55)
[2025-10-21] MEDS: LANTUS PER UNIT CHARGE SQ SCH (23:27)
[2025-10-21] MEDS: POTASSIUM CHLORIDE CRTAB 20 MEQ TABCR PO SCH (23:27)
[2025-10-22] MEDS ORDERED: PNEUMOCOCCAL VACCINE (PCV20) 20-VAL CONJ-DIP CRM/PF 0.5 ML SYR IM ONE (00:29)
[2025-10-22] MEDS ORDERED: INFLUENZA VACC TS2025-26(65y+)/PF (IIV3) 0.5mL Syr IM ONE (00:29)
[2025-10-22] MEDS: LEVOTHYROXINE SODIUM 25 MCG TABLET PO SCH (06:42)
[2025-10-22] MEDS: LEVOTHYROXINE SODIUM 200 MCG TABLET PO SCH (06:42)
--- NOTE | 2025-10-22 07:03 | Ultrasound Report ---
EXAM: US venous doppler LE BI CLINICAL HISTORY: RLE redness and swelling - eval for DVT TECHNIQUE: Ultrasound examination of bilateral lower extremity veins was performed in real time and duplex. One or more of the following were performed- spectral analysis, resistive index, waveform analysis, and pulsed Doppler. COMPARISON: comparison is made with the prior examination dated 01/22/2024. FINDINGS: The evaluation is limited by body habitus and bilateral lower limb edema. Normal phasic, non-pulsatile, and spontaneous flow is noted in bilateral common femoral, superficial femoral, popliteal and posterior tibial and peroneal veins. Visualized veins of both lower extremities demonstrate normal compressibility. No sonographic evidence of acute deep vein thrombosis (DVT) is detected in the visualized veins of both lower extremities. Compression and Augmentation: All evaluated veins compress fully with applied transducer pressure. Augmentation of venous flow is noted with distal compression. Additional Findings: No evidence of intraluminal thrombus. IMPRESSION: 1. The evaluation is limited by body habitus and bilateral lower limbs edema. 2. No sonographic evidence of acute DVT detected in bilateral common femoral, superficial femoral, popliteal and posterior tibial and peroneal veins, at the time of examination. 3. No interval changes. Disclaimer: DVT could be missed early in the disease when clot burden is minimal. For patients with moderate and high pretest probability of DVT and negative ultrasound, the [employer] clinical guidelines recommend testing with a D-dimer assay or repeat ultrasound in 5-7 days. If symptoms worsen, the Society of radiologists in ultrasound recommends repeating ultrasound even earlier. Electronically signed by Duran Tracey 10-22-2025 07:03 AM
[2025-10-22 07:07] LABS: Hematocrit (blood only) 37.2 % (37.0-47.0); Hemoglobin 10.7 g/dL (12.0-16.0); Immature Granulocytes # (auto) 0.26 K/uL (0.01-0.20); Immature Granulocytes % (auto) 2.3 %; Mean Corpuscular Hemoglobin 26.2 pg (25.0-34.0); Mean Corpuscular Volume 91.2 fL (80.0-100.0); Platelet Count 258 K/uL (130-400); RDW Standard Deviation 55.0 fL (36.4-46.3); Red Blood Count 4.08 M/uL (4.20-5.40); White Blood Count 11.16 K/ul (4.8-10.8)
[2025-10-22 07:38] LABS: Anion Gap 6.0 (3-11); Blood Urea Nitrogen 38.0 mg/dl (6-23); Calcium 8.9 mg/dl (8.6-10.3); Carbon Dioxide 28.0 mmol/L (21-32); Chloride 102.0 mmol/L (98-107); Creatinine Clr Calc Pharmacy 46.5 ml/min; Glucose 218.0 mg/dl (70-99(Fasting)); Potassium 4.7 mmol/L (3.5-5.1); Sodium 136.0 mmol/L (136-145)
--- NOTE | 2025-10-22 08:02 | Hospitalist Progress Note ---
Date of Service October 22, 2025 Assessment & Plan (1) Cellulitis: (2) CKD (chronic kidney disease): (3) CHF (congestive heart failure): (4) Type 2 diabetes mellitus: Plan 70 y/o female presenting with RLE swelling: #Right lower extremity cellulitis No severe sepsis or septic shockcontinue coverage for MSSA with Ancef. Sustained mild leukocytosis, CRP 16 - repeat in AM Blood cultures pending RLE venous doppler negative - somewhat limited study, consider repeat in 5-7 days if suspicion for VTE remains #increased oxygen requirement Chronic hypoxic and hypercapnic respiratory failure - no new respiratory symptoms, stable physical exam - wean O2 as tolerated No acute managementfollow closely, manage if anything evolves. #Type 2 diabetes on insulin/insulin pump: Insulin pump removed on admission A1c 8.8% BSG above goal range, increase Lantus to 12U BID - if persistently elevated, tighten prandial coverage #Chronic diastolic CHF/chronic HFpEF appears to be compensated somewhat difficult to gauge volume status given body habitus Continue her home dosing of diuretics and follow closely. #CKD stage 3b - follow BMP #DVT proph - lovenox Admission and Anticipated Discharge Date Admission Date: October 21, 2025 Supervising Physician Co-Signing Physician Notes I personally examined the patient and verified all pappas points of history and exam, discussed case, and agree with decision making with Dr Chappell No shortness of breath. Leg seems about the same to her. No other new complaints. Vitals noted, in general she is awake and alert pleasant no distress. HEENT normocephalic atraumatic mucous membranes moist. Breathing unlabored no accessory muscle use good effort. Abdominal shallow ulcerations with no surrounding erythema now dressedthin exudate, but also topical bacitracin, again no tracking erythema. Right lower extremity erythema resolving. Nontender. Right lower extremity cellulitisimproving on Ancef. Anticipate home on Keflex once she has further improvement shallow abdominal wall ulcerationsAncefKeflex, bacitracin, local wound care uncontrolled type 2 [id number] up to 8.8 which is much higher than recent labs we have on her. Discussed with patient. Suspect she is probably not covering meals as aggressively. Discussed following postprandial glucoses DVT prophylaxisLovenox otherwise as above Subjective Patient evaluated at bedside - currently on 7L O2 but states that she doesn't think she needs this, denies overt SOB. At baseline, only on O2 at night. Denies fevers/chills. Notes ongoing RLE pain. Review of Systems Review of Systems: as per HPI Physical Exam Physical Exam: Constitutional: no acute distress HEENT: NCAT, no conjunctival injection, trach present CV: extremities well-perfused, no LE edema Resp: shallow respirations, mildly increased work of breathing Skin: RLE moderately erythematous/warm to touch, ill defined borders, mildly TTP Neuro: alert, oriented, no focal neurologic deficit appreciated Results & Data Results & Data Vital Signs (Past 12 Hours) Vital Signs Temp Pulse Pulse Pulse Resp BP BP 10/22/25 07:32 36.8 C 69 18 115/63 10/22/25 07:25 68 22 10/22/25 03:30 36.7 C 69 18 10/22/25 02:59 80 18 10/21/25 23:00 10/21/25 23:00 36.8 C 95 H 22 10/21/25 22:55 95 H 20 10/21/25 22:22 83 20 149/79 H 10/21/25 22:00 81 20 10/21/25 21:00 84 16 BP Pulse Ox O2 Del Method O2 Flow Rate FiO2 10/22/25 07:32 98 Room Air, Trach Collar 10/22/25 07:25 93 Trach Collar 8 30 10/22/25 03:30 108/59 L 95 Trach Collar 10/22/25 02:59 96 Trach Collar 8 30 10/21/25 23:00 Trach Collar 10/21/25 23:00 118/67 95 Trach Collar 2 10/21/25 22:55 95 Trach Collar 8 30 10/21/25 22:22 98 Trach Collar 7 10/21/25 22:00 149/79 H 97 Trach Collar 7 10/21/25 21:00 109/69 98 Trach Collar 7 Resident Activity Tracking Resident Involvement: Resident Care Provided Care Provided: Adult Hospital Medicine (1) Cellulitis Laterality: right Site of cellulitis: extremity Site of cellulitis of extremity: lower extremity Qualified Code(s): L03.115 - Cellulitis of right lower limb (3) CHF (congestive heart failure) Heart failure chronicity: acute on chronic Heart failure type: unspecified Qualified Code(s): I50.9 - Heart failure, unspecified
[2025-10-22 08:06] LABS: Hemoglobin A1C 8.8 % (4.5-5.6)
[2025-10-22] MEDS ORDERED: INSULIN ASPART PER UNIT CHARGE SQ SCH (09:00)
[2025-10-22] MEDS: FAMOTIDINE 20 MG TAB PO PRN (11:27)
[2025-10-22] MEDS: SERTRALINE HCL 50 MG TABLET PO SCH (11:28)
[2025-10-22] MEDS: TORSEMIDE 10 MG TAB PO SCH (11:28)
[2025-10-22] MEDS: EMPAGLIFLOZIN 25 MG TAB PO SCH (11:29)
[2025-10-22] MEDS: SPIRONOLACTONE 25 MG TAB PO SCH (11:29)
[2025-10-22] MEDS: TOPIRAMATE 100 MG TAB PO SCH (11:29)
[2025-10-22] MEDS: INSULIN ASPART PER UNIT CHARGE SC SCH (11:30)
[2025-10-22] MEDS: LANTUS PER UNIT CHARGE SQ SCH (11:30)
[2025-10-22] MEDS: POLYETHYLENE (MIRALAX) 17 GM PACK PO PRN (11:34)
--- NOTE | 2025-10-22 11:34 | Billing Data ---
Date of Service October 22, 2025 Coding Level of Care Code 05919 SUB INP/OBS CARE
[2025-10-22] MEDS: ASPIRIN 81 MG ECTAB PO SCH (12:28)
[2025-10-22] MEDS: MULTIVITAMIN TAB PO SCH (12:28)
[2025-10-22] MEDS: MAGNESIUM OXIDE 400 MG TAB PO SCH (12:29)
[2025-10-22] MEDS: MONTELUKAST SODIUM 10 MG TABLET PO SCH (12:29)
[2025-10-22] MEDS: FOLIC ACID 1 MG TAB PO SCH (12:29)
[2025-10-22] MEDS: ISOSORBIDE MONO EXTENDED REL 60 MG TABCR PO SCH (13:42)
[2025-10-22 23:02] VITALS: RESP 18
[2025-10-22 23:44] VITALS: TEMP 98.4
--- NOTE | 2025-10-23 06:50 | Hospitalist Progress Note ---
Date of Service October 23, 2025 Assessment & Plan (1) Cellulitis: (2) CKD (chronic kidney disease): (3) CHF (congestive heart failure): (4) Type 2 diabetes mellitus: Plan 70 y/o female presenting with RLE swelling: #Right lower extremity cellulitis No severe sepsis or septic shockcontinue coverage for MSSA with Ancef. Sustained mild leukocytosis, CRP 16 - repeat in AM Blood cultures pending RLE venous doppler negative - somewhat limited study, consider repeat in 5-7 days if suspicion for VTE remains #increased oxygen requirement Chronic hypoxic and hypercapnic respiratory failure - no new respiratory symptoms, stable physical exam - wean O2 as tolerated No acute managementfollow closely, manage if anything evolves. #Type 2 diabetes on insulin/insulin pump: Insulin pump removed on admission A1c 8.8% BSG above goal range, increase Lantus to 12U BID - if persistently elevated, tighten prandial coverage #Chronic diastolic CHF/chronic HFpEF appears to be compensated somewhat difficult to gauge volume status given body habitus Continue her home dosing of diuretics and follow closely. #CKD stage 3b - follow BMP #DVT proph - lovenox Admission and Anticipated Discharge Date Admission Date: October 21, 2025 Subjective Patient evaluated at bedside - currently on 7L O2 but states that she doesn't think she needs this, denies overt SOB. At baseline, only on O2 at night. Denies fevers/chills. Notes ongoing RLE pain. Review of Systems Review of Systems: as per HPI Physical Exam Physical Exam: Constitutional: no acute distress HEENT: NCAT, no conjunctival injection, trach present CV: extremities well-perfused, no LE edema Resp: shallow respirations, mildly increased work of breathing Skin: RLE moderately erythematous/warm to touch, ill defined borders, mildly TTP Neuro: alert, oriented, no focal neurologic deficit appreciated Results & Data Results & Data Vital Signs (Past 12 Hours) Vital Signs Temp Pulse Resp BP Pulse Ox O2 Del Method O2 Flow Rate 10/23/25 02:10 70 18 94 Trach Collar 8 10/22/25 23:43 36.9 C 66 18 95/52 L 95 Room Air 10/22/25 23:01 77 18 97 Trach Collar 8 10/22/25 19:55 Room Air 10/22/25 19:43 74 20 92 Room Air FiO2 10/23/25 02:10 40 10/22/25 23:43 10/22/25 23:01 40 10/22/25 19:55 10/22/25 19:43 21 (1) Cellulitis Laterality: right Site of cellulitis: extremity Site of cellulitis of extremity: lower extremity Qualified Code(s): L03.115 - Cellulitis of right lower limb (3) CHF (congestive heart failure) Heart failure chronicity: acute on chronic Heart failure type: unspecified Qualified Code(s): I50.9 - Heart failure, unspecified
[2025-10-23 07:25] LABS: Hematocrit (blood only) 35.6 % (37.0-47.0); Hemoglobin 10.4 g/dL (12.0-16.0); Mean Corpuscular Hemoglobin 26.3 pg (25.0-34.0); Mean Corpuscular Volume 89.9 fL (80.0-100.0); Platelet Count 269 K/uL (130-400); RDW Standard Deviation 53.1 fL (36.4-46.3); Red Blood Count 3.96 M/uL (4.20-5.40); White Blood Count 9.42 K/ul (4.8-10.8)
[2025-10-23 07:45] LABS: Anion Gap 7.0 (3-11); Blood Urea Nitrogen 37.0 mg/dl (6-23); Calcium 8.6 mg/dl (8.6-10.3); Carbon Dioxide 27.0 mmol/L (21-32); Chloride 103.0 mmol/L (98-107); Creatinine Clr Calc Pharmacy 45.4 ml/min; Glucose 185.0 mg/dl (70-99(Fasting)); Potassium 4.4 mmol/L (3.5-5.1); Sodium 137.0 mmol/L (136-145)
[2025-10-23 08:01] LABS: Immature Granulocytes # (auto) 0.48 K/uL (0.01-0.20); Immature Granulocytes % (auto) 5.1 %; Polychromasia 1+
--- NOTE | 2025-10-23 09:09 | Discharge Summary ---
Date of Service October 23, 2025 Admission HPI Per Admitting Provider patient is a very pleasant 70-year-old female well-known to me from prior admissions. She was in her usual state of health until about 2 days ago whenever she started with some right lower extremity swelling that progressed over the last day or so. This, combined with the fact that she had a couple of small abdominal wounds with a little bit of surrounding redness let her and her caregiver to have her come to the ER. She was also found to be on higher oxygen than her baselinebut in discussion with the patient herself she denies any new shortness of breath cough sputum or any respiratory symptoms at all; her caregiver notes that she was not seeing any real indication that required the increasing oxygen, but rather that she was told to increase it by the patient's PCP for unclear reasons to either patient or caregiver. Admission Exam Per Admitting Provider In general she is awake alert oriented pleasant no distress. HEENT n ormocephalic atraumatic mucous membranes moist. Metal tracheostomy in place. Cardio is distant. Lungs faint scattered rhonchi no rales no wheezes no accessory muscle use good effort. Abdomen is protuberant, there are 2 small shallow ulcerations on her right lower lateral abdominal wall the larger of the 2 with a mild degree of surrounding erythema that is nontender. Extremities her right lower extremity is red swollen and somewhat tender. Neuro shows cranial nerves II through XII to be grossly intact gross motor and sensory intact. Principal Diagnosis RLE cellulitis Discharge Exam Constitutional: no acute distress HEENT: NCAT, no conjunctival injection, trach present CV: extremities well-perfused, no LE edema Resp: shallow respirations, mildly increased work of breathing Skin: RLE mildly erythematous, no longer warm to touch, mildly TTP - significantly improved compared to yesterday Neuro: alert, oriented, no focal neurologic deficit appreciated Discharge Data Allergies Allergy/AdvReac Type Severity Reaction Status Date / Time animal dander Allergy Intermediate Sneezing, Unverified 07/19/25 09:12 itchy watery eyes and Difficulty Breathing Penicillins Allergy Intermediate Hives Verified 07/19/25 09:12 tree and shrub pollen Allergy Intermediate Sneezing, Unverified 07/19/25 09:12 itchy watery eyes and Difficulty Breathing amitriptyline Allergy Unknown CAN'T Verified 07/19/25 09:12 REMEMBER doxycycline Allergy Unknown CAN'T Verified 07/19/25 09:12 REMEMBER guaifenesin Allergy Unknown CAN'T Verified 07/19/25 09:12 REMEMBER metformin Allergy Unknown CAN'T Verified 07/19/25 09:12 REMEMBER phenylephrine Allergy Unknown CAN'T Verified 07/19/25 09:12 REMEMBER pseudoephedrine Allergy Unknown CAN'T Verified 07/19/25 09:12 REMEMBER tetracycline Allergy Unknown CAN'T Verified 07/19/25 09:12 REMEMBER venlafaxine [From Effexor] Allergy Unknown CAN'T Verified 07/19/25 09:12 REMEMBER gabapentin AdvReac Intermediate BECOMES Verified 07/19/25 09:12 AGGRESSIVE Consultations 10/21/25 16:22 ED Decision to Admit Stat Ordered Studies 10/22/25 US venous doppler LE BI Stat Hospital Course (1) Cellulitis: (2) CKD (chronic kidney disease): (3) CHF (congestive heart failure): (4) Type 2 diabetes mellitus: Plan 70 y/o female presented with RLE swelling: #Right lower extremity cellulitis Blood cultures negative at 24H RLE venous doppler negative No severe sepsis or septic shockempirically covered for MSSA with Ancef - discharged on Cephalexin to complete 7 day course (last day 10/27). #Type 2 diabetes on insulin/insulin pump: A1c 8.8% (elevated relative to previous values) - recommend closer monitoring of postprandial BSGs, suspect patient is routinely underdosing mealtime insulin. #Chronic diastolic CHF/chronic HFpEF Compensated, no evidence for acute exacerbation. Total Time Total Time Spent Total Time Spent (In Minutes): <30 Discharge Plan Discharge Items Patient Disposition: Home - Self-Care Reason For Visit: RLE CELLULITIS Discharge Diagnosis: RLE cellulitis Condition on Discharge: Fair Activity: Resume your previous activity Non-emergency contact: Primary Care Provider Call non-emergency contact if: you have any medication questions, your symptoms worsen and you have a fever Follow-up/Referrals: Diana Peralta PA-C [Primary Care Provider] - (Please call your primary care provider to schedule a hospital follow-up appointment within 7-10 days) Diet: Carb Consistent or DM2 and Heart Healthy Addtl Attending Provider Instructions: You were admitted to the hospital due to a skin/soft tissue infection of your right leg. For this, you were treated with antibiotics. Upon discharge, please complete the course of oral antibiotics as noted below. New medications: Cephalexin: Please take one tab 3 times daily through 10/27, with your first dose in the evening of 10/23 You A1c is 8.8% - based on this, we recommend paying close attention to your blood sugars 1-2 hours after eating. If they remain above goal, that is an indication that you are not giving yourself enough insulin. For reference, you required about 50 units of rapid acting insulin per day while in the hospital. This is on top of a long acting insulin, so you will likely need more than 50 units over the course of the day to regulate your blood sugar. Please follow up closely with your primary care doctor for ongoing medication adjustments. Pending Studies at Discharge: No Stand-Alone Forms: [facility], Smoking Cessation Medications and DC Order Prescriptions: New cephalexin 500 mg capsule 500 mg PO Q8H 4 Days Qty: 13 0RF Rx Instructions: Please take your first dose in the evening on 10/23. Then take one tab 3 times daily for 4 more days (last day 10/27) Continued (DME) blood-glucose meter [OneTouch Ultra2 Meter] Misc See Rx Instructions .Route Qty: 1 0RF Rx Instructions: As directed (DME) Accu-Chek Guide test strips Strip See Rx Instructions .Route Qty: 400 3RF Rx Instructions: test blood sugar QID (DME) nebulizers Misc See Rx Instructions .Route Qty: 1 0RF Rx Instructions: PLEASE REPLACE COMPRESSOR; PREVIOUS ONE BROKEN BEYOND REPAIR (DME) nebulizers [Aeroneb Go Nebulizer] Misc See Rx Instructions .MEDSUPPLY Qty: 1 0RF Rx Instructions: With tubing and supplies. J44.9. J45.9. insulin aspart U-100 [Novolog U-100 Insulin aspart] 100 unit/mL solution See Rx Instructions subcut DAILY Qty: 100 4RF Rx Instructions: For insulin pump 300 units a day. (DME) pen needle, diabetic [BD Kaitlin 2nd Gen Pen Needle] 32 gauge x 5/32" needle See Rx Instructions miscellaneous .MEDSUPPLY Qty: 50 0RF Rx Instructions: As directed (DME) pen needle, diabetic [BD Kaitlin 2nd Gen Pen Needle] 32 gauge x 5/32" needle See Rx Instructions miscellaneous .MEDSUPPLY Qty: 150 5RF Rx Instructions: change new pen 5x a day ipratropium-albuterol 0.5 mg-3 mg(2.5 mg base)/3 mL solution for nebulization 3 ml INHALATION Q4H PRN (Reason: COUGHING, WHEEZING, SHORTNESS OF BREATH) Qty: 180 4RF (DME) Portable Oxygen Misc See Rx Instructions .MEDSUPPLY Qty: 1 0RF Rx Instructions: Oxygen 2 liters continuous via nasal cannula at rest with portable concentrator. MICHAEL 99 (DME) OneTouch Ultra Test Strip See Rx Instructions .Route Qty: 400 3RF Rx Instructions: As directed four times per day to monitor blood glucose multivitamin Tablet 1 tab PO QAM Qty: 30 1RF atorvastatin 40 mg tablet 40 mg PO QPM Qty: 30 1RF aspirin [Robert Low Dose Aspirin] 81 mg Tablet,Delayed Release (Dr/Ec) 81 mg PO QAM Qty: 30 1RF spironolactone 25 mg Tablet 25 mg PO QAM Qty: 30 1RF pantoprazole 40 mg Tablet,Delayed Release (Dr/Ec) 40 mg PO DAILYBB Qty: 30 1RF nitroglycerin 0.4 mg tablet, sublingual 0.4 mg SL DIRECTED PRN (Reason: Chest Pain) Qty: 25 0RF sertraline 50 mg Tablet 50 mg PO QAM Qty: 30 1RF magnesium oxide 400 mg magnesium Tablet 400 mg PO QAM Qty: 30 1RF diclofenac sodium [Voltaren Arthritis Pain] 1 % gel 4 g EXT QID PRN (Reason: Pain) naloxone [Narcan] 4 mg/actuation spray,non-aerosol 4 mg INTRANASAL DIRECTED PRN (Reason: OVERDOSE) bupropion HCl 100 mg tablet sustained-release 12 hr 0 mg PO DIRECTED Rx Instructions: Take 100mg by mouth in the morning and 200mg by mouth at bedtime potassium chloride 20 mEq tablet extended release 20 meq PO BID famotidine 20 mg Tablet 20 mg PO DAILY PRN (Reason: heartburn) Qty: 30 0RF budesonide 0.5 mg/2 mL Suspension For Nebulization 0.5 mg NEB BIDR Qty: 120 0RF oxycodone 10 mg tablet 10 mg PO BID PRN (Reason: Pain) Rx Instructions: filled 09/07 30 day supply torsemide 10 mg tablet 30 mg PO QAM Qty: 90 1RF folic acid 1 mg tablet 1 mg PO DAILY montelukast 10 mg tablet 10 mg PO DAILY levothyroxine 25 mcg tablet 0 mcg PO QAM Rx Instructions: Take 25mcg w/ 200mcg by mouth to equal 225mcg every morning, but recently had 50mcg filled 09/17 90 ds. PT and pharmacy unsure of correct daily dosing. isosorbide mononitrate 60 mg tablet extended release 24 hr 60 mg PO QAM levothyroxine 200 mcg tablet 0 mcg PO QAM Rx Instructions: Take 25mcg w/ 200mcg by mouth to equal 225mcg every morning, but recently had 50mcg filled 09/17 90 ds. PT and pharmacy unsure of correct daily dosing. topiramate 100 mg tablet 100 mg PO DIRECTED Rx Instructions: Take 100mg by mouth in the morning and 200mg by mouth at bedtime per family and pharmacy 03/25/25 metoprolol tartrate 25 mg tablet 25 mg PO BID Jardiance 25 mg tablet 25 mg PO DAILY Combivent Respimat 20-100 mcg/actuation mist 1 puff INHALATION Q4H Rx Instructions: space evenly during waking hours diclofenac sodium 75 mg tablet,delayed release (DR/EC) 75 mg PO BID PRN (Reason: ARTHRITIS) ketoconazole 2 % cream 1 applic TOPICAL DAILY Rx Instructions: MIXED WITH AQUAPHOR Discharge Orders: Discharge Order (Routine); Ordered 10/23/25 Ordered By: Washington Chappell Admission Data Admit Date/Time: 10/21/25 16:38 Attending Provider: Patrick Mansfield Admit Provider: Patrick Mansfield Primary Care Provider: Diana Peralta Other Providers: Patrick Mansfield; [facility] Supervising Physician Co-Signing Physician Notes I personally examined the patient and verified all pappas points of history and exam, discussed case, and agree with decision making with Dr Chappell Feeling okay overall. Expressed a reticence to leave the [facility], but it was not for medical issues, merely because it is cold outside.. Vitals noted, in general she is awake and alert pleasant no distress. HEENT normocephalic atraumatic mucous membranes moist. Breathing unlabored no accessory muscle use good effort. Abdominal shallow ulcerations with no surrounding erythema now dressedthin exudate, but also topical bacitracin, again no tracking erythema. Right lower extremity erythema Continues to resolve Right lower extremity cellulitisimproving on Ancef. safe for home on Keflex shallow abdominal wall ulcerationsAncefKeflex, bacitracin, local wound care uncontrolled type 2 [id number] up to 8.8 which is much higher than recent labs we have on her. Discussed with patient. Suspect she is probably not covering meals as aggressively. Discussed following postprandial glucoses. home insulin pump management. DVT prophylaxisLovenox during her stay otherwise as above Resident Activity Tracking Resident Involvement: Resident Care Provided Care Provided: Adult Hospital Medicine
--- NOTE | 2025-10-23 12:45 | Billing Data ---
Date of Service October 23, 2025 Coding Level of Care Code 84607 IN/OBS DISCH 30 MIN/LESS
[2025-10-23 14:55] VITALS: BP 95/52
[2025-10-23 15:29] VITALS: PULSE 70; O2SAT 91
== END 2025-10-23 16:44 | disposition home health service (06) | DRG 603 ==
LOC: ED 14:01 → EDINP 16:38 → INTOOBSV 16:38 → 2W 22:22